=== PATIENT | female | born 1950 | race Caucasian/White ===

== ENCOUNTER 2016-03-15 12:16 | Emergency (ER) | payer MEDICARE ==
[2016-03-15] MEDS ORDERED: ASPIRIN 81 MG CHEW TABLET As Ordered ONE (12:43)
[2016-03-15 13:30] LABS: BASO # 0.1 K/mm3 (0.0-0.2); BASO % 1.3 % (0.0-1.0); EOS # 0.5 K/mm3 (0.0-0.50); EOS % 6.5 % (0.0-3.0); LARGE UNSTAINED CELL # 0.2 K/mm3 (0.0-0.4); LARGE UNSTAINED CELL % 2.2 % (0.0-4.0); MEAN CORPUSCULAR HEMOGLOBIN 27.8 pg (27.0-33.0); MEAN CORPUSCULAR HGB CONC 33.3 g/dl (32.0-36.5); MEAN CORPUSCULAR VOLUME 83.5 fl (80.0-96.0); MONO # 0.4 K/mm3 (0.0-0.8); PLATELET COUNT, AUTOMATED 152 k/mm3 (150-450); RED CELL DISTRIBUTION WIDTH 13.1 % (11.5-14.5)
[2016-03-15 13:58] LABS: ANION GAP 8 MEQ/L (8-16); BLOOD UREA NITROGEN 16 MG/DL (7-18); CALCIUM LEVEL 9.6 MG/DL (8.8-10.2); CARBON DIOXIDE LEVEL 26 MEQ/L (21-32); CHLORIDE LEVEL 109 MEQ/L (98-107); CREATININE FOR GFR 0.73 MG/DL (0.55-1.02); GLOMERULAR FILTRATION RATE > 60.0 (>45); GLUCOSE, FASTING 141 MG/DL (80-110); SODIUM LEVEL 143 MEQ/L (136-145)
[2016-03-15] MEDS ORDERED: fentaNYL 100 MCG/2 ML INJECTION (J3010) As Ordered ONE ×2 (14:09→15:44)
[2016-03-15] MEDS ORDERED: ISOVUE-370 76% 100ML VIAL (Q9967) As Ordered ONE (14:17)
--- NOTE | 2016-03-15 14:23 | REP ---
CHEST X-RAY: Two views. HISTORY: Chest pain. Comparison chest x-ray February 07, 2016. FINDINGS: EKG monitoring electrodes overlie the chest. There is mild linear fibrosis in the left base unchanged. Right hemidiaphragm is somewhat elevated also unchanged. Pleural angles are sharp. No infiltrate is seen. Heart is not felt to be enlarged. IMPRESSION: No active disease. Signed by Frantz Ruiz MD 03/15/2016 03:10 P
--- NOTE | 2016-03-15 15:38 | REP ---
CT pulmonary angiogram: With IV contrast. History: Chest pain. Comparison studies: Comparison chest x-ray is from this date. Contrast dose: 75 cc's of Isovue [address] technique: Helical scanning is acquired and overlapping 1.5 mm and contiguous 3 mm axial images are reformatted. In addition, a 3-D work station is deployed to generate thick slab maximum intensity projection images in sagittal and coronal imaging projections. CT pulmonary angiographic findings: There is good opacification of the pulmonary arterial tree and there is no CT evidence of pulmonary embolism. The thoracic aorta enhances homogeneously and is normal in course and caliber. No evidence of dissection or aneurysm. Vascular calcification is seen in the left coronary artery distribution. No pleural or pericardial effusion is seen. No adrenal lesion is observed. There are clips in the gallbladder fossa. No hilar or mediastinal mass or adenopathy is seen. No pulmonary nodule or mass lesion is observed. No infiltrate or significant atelectasis is noted. Maximum intensity projection images show no evidence of filling defect or vessel cutoff to suggest a pulmonary embolus. No bony destructive lesion is seen. Impression: No CT evidence of pulmonary embolism. No active cardiopulmonary disease seen. Vascular calcification in the distribution of the left coronary artery. Clips in the gallbladder fossa. Signed by Frantz Ruiz MD 03/15/2016 04:20 P
--- NOTE | 2016-03-15 19:53 | EDDOCDS ---
Nurse's Notes [facility] Name: Juju Danielle Age: 66 yrs Sex: Female : 1950 Arrival Date: 03/15/2016 Time: 12:16 Bed 11 Private MD: Diagnosis: Other chest pain-musculoskeletal Presentation: 03/15 12:20 Presenting complaint: EMS states: patient has had chest pain since yesterday - also has kcs had back pain for 2-3 weeks after shoveling. Has chest heaviness - gets worse with deep breath - moves to left side and to her back. Adult Sepsis Screening: The patient does not have new or worsening altered mentation. Patient's respiratory rate is less than 22. Systolic blood pressure is greater than 100. Patient has a qSOFA score of 0- Negative Sepsis Screen. Suicide/Homicide risk assessment- the patient denies having any suicidal and/or homicidal ideations and does not present with any other emotional, behavioral or mental health complaints. Status: Patient is not a resident service coordinator or dependent. Transition of care: Patient was received from [facility]. Care prior to arrival: See EMS report. Glucose check. 157 Oxygen administered by EMS. 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 Care prior to arrival: Medications administered prior to kcs arrival: ASA. 12:20 Acuity: SANTOS Level 2 kcs Triage Assessment: 15:35 Pt Declines HIV testing. Cardiovascular: Chest pain is described as Pain is 5 out of 10 rs3 on a pain scale. radiates to right scapula episodes are intermittent began a week. Historical: - Allergies: tequin; - Home Meds: 1. Insulin: Humalog 200 units/ml - 10 units three times daily Sub-Q 2. hydrocodone-acetaminophen 10-325 mg Oral tab 1 tab every 8 hours as needed 3. tizanidine 4 mg oral cap nightly 4. toujeo 300 units/ml - 145 units twice daily 5. metformin 1,000 mg oral tab 2 times per day 6. aspirin 81 mg Oral tab 1 tab once daily - PMHx: Carpal Tunnel Syndrome; Diabetes - IDDM: uncontrolled; Fibromyalgia; GERD; Hypertension; neuropathy; - PSHx: ; Cholecystectomy; Hysterectomy; - Family history: Not pertinent. - Social history: Smoking status: Patient states former smoker of tobacco. No barriers to communication noted, The patient speaks fluent [place] Zealander. - : The pt / caregiver states he / she is not on anticoagulants. Home medication list is obtained from a discharge med list. - Exposure Risk Screening:: None identified. Screenin:11 Screening information is obtained from the patient. Fall risk: No risks identified. ms18 Assistance ADL's: requires no assistance with activities of daily living. Abuse/DV Screen: The patient / caregiver reports he/she is: not in a situation that causes fear, pain or injury. Nutritional screening: No deficits noted. Advance Directives: There is no living will. home support is adequate. Assessment: 13:11 General: Appears in no apparent distress, obese, uncomfortable, Behavior is appropriate ms18 for age, cooperative, pleasant. Pain: Location: back and chest. Neurological: Level of Consciousness is awake, alert, obeys commands, Oriented to person, place, time. Cardiovascular: Rhythm is sinus rhythm. Respiratory: Airway is patent Respiratory effort is even, unlabored. Derm: Skin is pink, warm & dry. 14:25 General: Appears in no apparent distress, comfortable, Behavior is appropriate for age, ms18 cooperative, pleasant, Took pt to CT for PE study. PT in no acute distress. VSS. Pt able to move from stretcher to table with little assistance. Neurological: Level of Consciousness is awake, alert, obeys commands, Oriented to person, place, time. Respiratory: Airway is patent Respiratory effort is even, unlabored. Derm: Skin is pink, warm & dry. 15:06 General: Appears in no apparent distress, comfortable, Behavior is appropriate for age, ms18 cooperative, PT resting at this time. Will continue to monitor pt. Respiratory: Airway is patent Respiratory effort is even, unlabored. Derm: Skin is pink, warm & dry. 16:10 General: Appears in no apparent distress, patient used bedside commode. voided clear rs3 urine. R. upper scapular pain and chest pain remains \T\ 07/04. ordered Fentanyl 50 mcg IVP given. . 17:37 General: Appears in no apparent distress, Behavior is appropriate for age, cooperative, rs3 resting comfortable. sleeping. reports of pain decreased significantly /10. waiting on repeat card jsoe results. will continue to monitor. . 18:14 General: Appears in no apparent distress, Behavior is appropriate for age, cooperative, rs3 shoulder pain/chest pain improved. reports much better. had supper. tolerated well. visiting with family. will continue to monitor. . 19:51 Reassessment: Patient appears in no apparent distress at this time. Patient denies pain rs3 at this time. Patient states feeling better. Patient states symptoms have improved. Vital Signs: 12:30 Pulse 75; Resp 18; Temp 97.4(TE); Pulse Ox 98% on R/A; Weight 106.14 kg (R); Height 5 rn1 ft. 6 in. (167.64 cm) (R); Pain 10/10; 12:39 BP 162 / 84 LA Supine (man/lg); jlf 15:56 BP 188 / 78 (auto/); rs3 15:56 Pulse 66 MON; Pulse Ox 94% ; rs3 16:10 Pulse 68 MON; Pulse Ox 93% ; rs3 16:11 BP 187 / 77 (auto/); rs3 16:26 BP 180 / 74 (auto/); rs3 16:26 Pulse 76 MON; Pulse Ox 94% ; rs3 16:52 Temp 96.5(O); jlf 16:56 BP 199 / 79 (auto/); rs3 16:56 Pulse 68 MON; Pulse Ox 95% ; rs3 17:10 Pulse 68 MON; Pulse Ox 93% ; rs3 17:11 BP 178 / 73 (auto/); rs3 17:26 BP 195 / 77 (auto/); rs3 17:26 Pulse 66 MON; Pulse Ox 96% ; rs3 17:41 BP 190 / 80 (auto/); rs3 17:41 Pulse 66 MON; Pulse Ox 96% ; rs3 19:40 BP 178 / 80; Pulse 88 MON; Resp 18; Temp 98(TE); Pulse Ox 99% on R/A; Pain 2/10; rs3 12:30 Body Mass Index 37.77 (106.14 kg, 167.64 cm) rn1 ED Course: 12:17 Patient visited by Adriana Garcia, Ball Fringe Machine Operator. deg 12:17 Nicki Kilgore,JANELLE is Primary Nurse. deg 12:17 Patient moved to Waiting deg 12:17 Patient moved to 11 deg 12:22 Triage Initiated kcs 12:32 Patient visited by Saritha Renteria PCA. jlf 12:32 [facility]. le 12:32 Patient visited by Saritha Renteria PCA. jlf 12:32 EKG done. (by ED staff). Reviewed by Valorie SAINI. jlf 12:39 Patient visited by Valorie Figueroa FNP. le 12:40 Patient visited by Saritha Renteria PCA. jlf 12:41 Patient visited by Valorie Figueroa FNP. le 13:10 Patient visited by Angle Kilgore RN. ms18 13:10 ESR Sent. ms18 13:10 Basic Metabolic Profile Sent. ms18 13:10 CBC with Diff Sent. ms18 13:10 Cardiac Injury Profile Sent. ms18 13:10 D-Dimer Quant Sent. ms18 13:10 Troponin Sent. ms18 13:11 The patient / caregiver is instructed regarding the plan of care and ED course. Patient ms18 has correct armband on for positive identification. Placed in gown. Bed in low position. Call light in reach. Side rails up X2. threat monitoring analyst on. Pulse ox on. NIBP on. 13:11 Inserted saline lock: 20 gauge in left antecubital area and blood collected. The ms18 patient tolerated the procedure well. 13:33 C REACTIVE PROTEIN QUANTITATIV Sent. ms18 14:07 Patient visited by Angle Kilgore RN. ms18 14:17 Patient visited by Angle Kilgore RN. ms18 14:34 Chest, 2 View (pa\E\lat) Returned. EDMS 14:53 Patient visited by Saritha Renteria PCA. jlf 15:13 [facility] Payment Agreement was scanned into Embedded Chat and attached to record. jp5 15:27 Patient visited by Saritha Renteria PCA. jlf 15:43 Elmira Leiva,JANELLE is Primary Nurse. rs3 15:58 Patient visited by Elmira Leiva RN. rs3 16:17 Patient visited by Saritha Renteria PCA. jlf 16:20 CT Chest Angio R/O PE Returned. EDMS 16:52 Patient visited by Saritha Renteria PCA. jlf 16:52 Patient visited by Saritha Renteria PCA. jlf 17:33 Patient visited by Elmira Leiva,RN. rs3 18:14 Patient visited by Elmira Leiva RN. rs3 19:02 Patient visited by Elmira Leiva RN. rs3 19:22 Your own Physician is Referral Physician. le 19:51 Discontinued lock bleeding controlled, pressure dressing applied, No redness/swelling rs3 at site. No procedures done that require assistance. Administered Medications: 12:57 Not Given (pt had med by EMS): Aspirin Chewable Tablet 324 mg PO once ms18 14:17 Drug: fentaNYL (PF) 25 mcg [fentanyl (PF) 50 mcg/mL injection solution (0.5 mL)] Route: ms18 IVP; Site: left antecubital; 15:58 Drug: fentaNYL (PF) 50 mcg [fentanyl (PF) 50 mcg/mL injection solution (1 mL)] Route: rs3 IVP; Site: left antecubital; 16:30 Follow up: Response: Pain is decreased rs3 Order Results: Lab Order: Basic Metabolic Profile; SPEC'M 03/15/16 13:09 Test: GLUCOSE, FASTING; Value: 141; Range: 80-110; Abnormal: Above high normal; Units: MG/DL; Status: F Test: BLOOD UREA NITROGEN; Value: 16; Range: 7-18; Units: MG/DL; Status: F Test: CREATININE FOR GFR; Value: 0.73; Range: 0.55-1.02; Units: MG/DL; Status: F Test: GLOMERULAR FILTRATION RATE; Value: > 60.0; Range: >45; Status: F Test: SODIUM LEVEL; Value: 143; Range: 136-145; Units: MEQ/L; Status: F Test: POTASSIUM SERUM; Value: 4.0; Range: 3.5-5.1; Units: MEQ/L; Status: F Test: CHLORIDE LEVEL; Value: 109; Range: 98-107; Abnormal: Above high normal; Units: MEQ/L; Status: F Test: CARBON DIOXIDE LEVEL; Value: 26; Range: 21-32; Units: MEQ/L; Status: F Test: ANION GAP; Value: 8; Range: 8-16; Units: MEQ/L; Status: F Test: CALCIUM LEVEL; Value: 9.6; Range: 8.8-10.2; Units: MG/DL; Status: F Test Note: ; Units are mL/min/1.73 m2 Chronic Kidney Disease Staging per NKF: Stage I & II GFR >=60 Normal to Mildly Decreased Stage III GFR 30-59 Moderately Decreased Stage IV GFR 15-29 Severely Decreased Stage V GFR <15 Very Little GFR Left ESRD GFR <15 on BIOMEDICAL EQUIPMENT TECHNICIAN Lab Order: CBC with Diff; YASMEEN 03/15/16 13:09 Test: WHITE BLOOD COUNT; Value: 7.0; Range: 4.0-10.0; Units: K/mm3; Status: F Test: RED BLOOD COUNT; Value: 4.99; Range: 4.00-5.40; Units: M/mm3; Status: F Test: HEMOGLOBIN; Value: 13.9; Range: 12.0-16.0; Units: g/dl; Status: F Test: HEMATOCRIT; Value: 41.7; Range: 36.0-47.0; Units: %; Status: F Test: MEAN CORPUSCULAR VOLUME; Value: 83.5; Range: 80.0-96.0; Units: fl; Status: F Test: MEAN CORPUSCULAR HEMOGLOBIN; Value: 27.8; Range: 27.0-33.0; Units: pg; Status: F Test: MEAN CORPUSCULAR HGB CONC; Value: 33.3; Range: 32.0-36.5; Units: g/dl; Status: F Test: RED CELL DISTRIBUTION WIDTH; Value: 13.1; Range: 11.5-14.5; Units: %; Status: F Test: PLATELET COUNT, AUTOMATED; Value: 152; Range: 150-450; Units: k/mm3; Status: F Test: NEUTROPHILS %; Value: 43.0; Range: 36.0-66.0; Units: %; Status: F Test: LYMPH %; Value: 42.0; Range: 24.0-44.0; Units: %; Status: F Test: MONO %; Value: 5.0; Range: 0.0-5.0; Units: %; Status: F Test: EOS %; Value: 6.5; Range: 0.0-3.0; Abnormal: Above high normal; Units: %; Status: F Test: BASO %; Value: 1.3; Range: 0.0-1.0; Abnormal: Above high normal; Units: %; Status: F Test: LARGE UNSTAINED CELL %; Value: 2.2; Range: 0.0-4.0; Units: %; Status: F Test: NEUTROPHILS #; Value: 3.0; Range: 1.8-7.7; Units: K/mm3; Status: F Test: LYMPH #; Value: 3.0; Range: 1.5-4.5; Units: K/mm3; Status: F Test: MONO #; Value: 0.4; Range: 0.0-0.8; Units: K/mm3; Status: F Test: EOS #; Value: 0.5; Range: 0.0-0.50; Units: K/mm3; Status: F Test: BASO #; Value: 0.1; Range: 0.0-0.2; Units: K/mm3; Status: F Test: LARGE UNSTAINED CELL #; Value: 0.2; Range: 0.0-0.4; Units: K/mm3; Status: F Lab Order: Cardiac Injury Profile; SPEC' 03/15/16 13:09 Test: CPK CREATINE PHOSPHOKINASE; Value: 73; Range: 26-192; Units: U/L; Status: F Test: CK-MB VALUE MASS; Value: 2.4; Range: 0.0-3.6; Units: NG/ML; Status: F Test: MB/CK RELATIVE INDEX; Value: 3.28; Range: < OR =4; Status: F Test Note: ; DIAGNOSIS CRITERIA MMB ng/ml Relative Index (RI) NON-AMI < or = 5 N/A [place]ONE > 5 < or = 4 AMI > 5 > 4 Lab Order: D-Dimer Quant; [facility]' 03/15/16 13:09 Test: D-DIMER QUANT; Value: 902.0; Range: <500; Abnormal: Above high normal; Units: ng/ml; Status: F Lab Order: Troponin; [facility]' 03/15/16 13:09 Test: TROPONIN I; Value: 0.37; Range: < 0.10; Abnormal: Above high normal; Units: NG/ML; Status: F Test Note: ; Troponin I Reference Interval for [place] LOCI: 99th Percentile= 0.00-0.045 ng/ml Risk Stratification: <= 0.10 ng/ml Decreased Risk for Adverse Clinical Events. 0.10-1.50 ng/ml Increased Risk for Adverse Clinical Events. Evaluation of additional criterion and/or repeat testing in 2-6 hours is suggested to rule out myocardial damage. >= 1.50 ng/ml Indicative of Myocardial Injury. Lab Order: ESR; SPEC' 03/15/16 12:49 Test: ERYTHROCYTE SEDIMENTATION RATE; Value: 42; Range: 0-30; Abnormal: Above high normal; Units: mm/hr; Status: F Lab Order: C REACTIVE PROTEIN QUANTITATIV; SPEC' 03/15/16 13:09 Test: C REACTIVE PROTEIN QUANTITATIV; Value: 1.00; Range: 0.00-0.30; Abnormal: Above high normal; Units: MG/DL; Status: F Lab Order: CARDIAC MARKER PANEL; [facility]' 03/15/16 16:38 Test: CPK CREATINE PHOSPHOKINASE; Value: 70; Range: 26-192; Units: U/L; Status: F Test: CK-MB VALUE MASS; Value: 2.3; Range: 0.0-3.6; Units: NG/ML; Status: F Test: MB/CK RELATIVE INDEX; Value: 3.28; Range: < OR =4; Status: F Test: TROPONIN I; Value: 0.33; Range: < 0.10; Abnormal: Above high normal; Units: NG/ML; Status: F Test Note: ; DIAGNOSIS CRITERIA MMB ng/ml Relative Index (RI) NON-AMI < or = 5 N/A [place]ONE > 5 < or = 4 AMI > 5 > 4 Radiology Order: Chest, 2 View (pa\E\lat) Test: Chest, 2 View (pa\E\lat) REASON FOR EXAMINATION: Chest Pain; CHEST X-RAY:; ; Two views.; ; HISTORY: Chest pain.; ; Comparison chest x-ray February 07, 2016.; ; FINDINGS: EKG monitoring electrodes overlie the chest. There is mild linear; fibrosis in the left base unchanged. Right hemidiaphragm is somewhat elevated; also unchanged. Pleural angles are sharp. No infiltrate is seen. Heart is not; felt to be enlarged.; ; IMPRESSION: No active disease.; ; ; Signed by; Frantz Ruiz MD 03/15/2016 03:10 P; Radiology Order: CT Chest Angio R/O PE Test: CT Chest Angio R/O PE REASON FOR EXAMINATION: Chest Pain; CT pulmonary angiogram: With IV contrast.; ; History: Chest pain.; ; Comparison studies: Comparison chest x-ray is from this date.; ; Contrast dose: 75 cc's of Isovue 370 are administered intravenously.; ; CT technique: Helical scanning is acquired and overlapping 1.5 mm and contiguous; 3 mm axial images are reformatted. In addition, a 3-D work station is deployed; to generate thick slab maximum intensity projection images in sagittal and; coronal imaging projections.; ; CT pulmonary angiographic findings: There is good opacification of the pulmonary; arterial tree and there is no CT evidence of pulmonary embolism. The thoracic; aorta enhances homogeneously and is normal in course and caliber. No evidence of; dissection or aneurysm. Vascular calcification is seen in the left coronary; artery distribution. No pleural or pericardial effusion is seen. No adrenal; lesion is observed. There are clips in the gallbladder fossa. No hilar or; mediastinal mass or adenopathy is seen. No pulmonary nodule or mass lesion is; observed. No infiltrate or significant atelectasis is noted. Maximum intensity; projection images show no evidence of filling defect or vessel cutoff to suggest; a pulmonary embolus. No bony destructive lesion is seen.; ; Impression:; ; No CT evidence of pulmonary embolism. No active cardiopulmonary disease seen.; Vascular calcification in the distribution of the left coronary artery. Clips in; the gallbladder fossa.; ; ; Signed by; Frantz Ruiz MD 03/15/2016 04:20 P; Outcome: 19:23 Discharge ordered by Provider. katelin 19:50 Discharge Assessment: patient administered narcotics - no. The following High Risk rs3 Discharge criteria are identified: None. Discharged to home with family. Condition: stable. Discharge instructions given to patient, Instructed on discharge instructions, follow up and referral plans. medication usage, Demonstrated understanding of instructions, medications, Pt was receptive of discharge instructions/ teaching. No special radiology studies were completed. Property :Personal belongings accompany Pt. 19:52 Patient left the ED. rs3 Signatures: Dispatcher [employer] EDGila Domínguez RN RN kcs Murray, Denise, Ball Fringe Machine Operator Unit deg Valorie Figueroa FNP FNP le Soosairaj, Rosemary, RN RN rs3 Saritha Renteria, TREATING PLANT SUPERVISOR TREATING PLANT SUPERVISOR jlf Angle Kilgore,JANELLE RN ms18 Stan Ingram rn1 Doroteo Carver jp5 Corrections: (The following items were deleted from the chart) 13:19 13:10 C REACTIVE PROTEIN QUANTITATIV+LAB sent. ms18 EDMS MTDD
--- NOTE | 2016-03-15 19:53 | EDDOCDS ---
Physician Documentation [facility] Name: Juju Danielle Age: 66 yrs Sex: Female : 1950 Arrival Date: 03/15/2016 Time: 12:16 Bed 11 Private MD: Disposition: 03/15 19:24 Critical Care: Critical care not applicable. le Disposition: 03/15/16 19:23 Discharged to Home/Self Care. Impression: Other chest pain - musculoskeletal. - Condition is Stable. - Discharge Instructions: Nonspecific Chest Pain, Musculoskeletal Pain. - Medication Reconciliation, Local Pharmacy Hours form. - Follow up: Your own Physician; When: Call to arrange an appointment; Reason: Recheck today's complaints, Continuance of care. - Problem is new. - Symptoms have improved. - Notes: Return to the ED for any further concerns Historical: - Allergies: tequin; - Home Meds: 1. Insulin: Humalog 200 units/ml - 10 units three times daily Sub-Q 2. hydrocodone-acetaminophen 10-325 mg Oral tab 1 tab every 8 hours as needed 3. tizanidine 4 mg oral cap nightly 4. toujeo 300 units/ml - 145 units twice daily 5. metformin 1,000 mg oral tab 2 times per day 6. aspirin 81 mg Oral tab 1 tab once daily - PMHx: Carpal Tunnel Syndrome; Diabetes - IDDM: uncontrolled; Fibromyalgia; GERD; Hypertension; neuropathy; - PSHx: ; Cholecystectomy; Hysterectomy; - Family history: Not pertinent. - Social history: Smoking status: Patient states former smoker of tobacco. No barriers to communication noted, The patient speaks fluent French. - : The pt / caregiver states he / she is not on anticoagulants. Home medication list is obtained from a discharge med list. - Exposure Risk Screening:: None identified. Vital Signs: 12:30 Pulse 75; Resp 18; Temp 97.4(TE); Pulse Ox 98% on R/A; Weight 106.14 kg / 234 lbs (R); rn1 Height 5 ft. 6 in. (167.64 cm) (R); Pain 10/10; 12:39 BP 162 / 84 LA Supine (man/lg); jlf 15:56 BP 188 / 78 (auto/); rs3 15:56 Pulse 66 MON; Pulse Ox 94% ; rs3 16:10 Pulse 68 MON; Pulse Ox 93% ; rs3 16:11 BP 187 / 77 (auto/); rs3 16:26 BP 180 / 74 (auto/); rs3 16:26 Pulse 76 MON; Pulse Ox 94% ; rs3 16:52 Temp 96.5(O); jlf 16:56 BP 199 / 79 (auto/); rs3 16:56 Pulse 68 MON; Pulse Ox 95% ; rs3 17:10 Pulse 68 MON; Pulse Ox 93% ; rs3 17:11 BP 178 / 73 (auto/); rs3 17:26 BP 195 / 77 (auto/); rs3 17:26 Pulse 66 MON; Pulse Ox 96% ; rs3 17:41 BP 190 / 80 (auto/); rs3 17:41 Pulse 66 MON; Pulse Ox 96% ; rs3 19:40 BP 178 / 80; Pulse 88 MON; Resp 18; Temp 98(TE); Pulse Ox 99% on R/A; Pain 2/10; rs3 12:30 Body Mass Index 37.77 (106.14 kg, 167.64 cm) rn1 MDM: 12:20 ECG WITH READING ER PHYS+CARDIAG ordered. EDMS 12:41 Aspirin Chewable Tablet 324 mg PO once ordered. le 12:41 Label Sewer/Pulse Ox/q 30 min VS ordered. le 12:41 IV Saline Lock ordered. le 12:41 Rhythm Strip to chart ordered. le 12:41 Undress patient appropriately for examination ordered. le 12:42 Basic Metabolic Profile Ordered. EDMS 12:42 CBC with Diff Ordered. EDMS 12:42 Cardiac Injury Profile Ordered. EDMS 12:42 D-Dimer Quant Ordered. EDMS 12:42 Troponin Ordered. EDMS 12:42 Chest, 2 View (pa\E\lat) Ordered. EDMS 12:55 ESR Ordered. EDMS 13:21 C REACTIVE PROTEIN QUANTITATIV Ordered. EDMS 13:54 CBC with Diff Reviewed. le 13:54 D-Dimer Quant Reviewed. le 13:54 ESR Reviewed. le 13:56 CT Chest Angio R/O PE Ordered. EDMS 13:56 fentaNYL (PF) 25 mcg IVP once ordered. le 15:13 [facility] Payment Agreement was scanned into [email or web address] and attached to record. jp5 15:13 Financial registration complete. jp5 15:33 Basic Metabolic Profile Reviewed. le 15:33 Troponin Reviewed. le 15:33 C REACTIVE PROTEIN QUANTITATIV Reviewed. le 15:33 Cardiac Injury Profile Reviewed. le 15:33 Chest, 2 View (pa\E\lat) Reviewed. le 15:37 Repeat EKG (put time details section) ordered. le 15:37 Redraw CIP &Troponin (put time in details section) ordered. le 15:37 fentaNYL (PF) 50 mcg IVP once ordered. le 15:40 CARDIAC MARKER PANEL Ordered. EDMS 15:41 Redraw CIP &Troponin (put time in details section) complete. deg 15:41 Repeat EKG (put time details section) complete. deg 15:41 ECG WITH READING ER PHYS ordered. EDMS 15:42 CONSISTENT CARBOHYDRATE+DIET ordered. EDMS 19:15 CARDIAC MARKER PANEL Reviewed. le Administered Medications: 12:57 Not Given (pt had med by EMS): Aspirin Chewable Tablet 324 mg PO once ms18 14:17 Drug: fentaNYL (PF) 25 mcg [fentanyl (PF) 50 mcg/mL injection solution (0.5 mL)] Route: ms18 IVP; Site: left antecubital; 15:58 Drug: fentaNYL (PF) 50 mcg [fentanyl (PF) 50 mcg/mL injection solution (1 mL)] Route: rs3 IVP; Site: left antecubital; 16:30 Follow up: Response: Pain is decreased rs3 Signatures: Dispatcher [employer] EDMS Gila Davis RN RN kcs Murray, Denise, Screening Tech Unit deg Valorie Figueroa, ATTIC FANS MECHANIC ATTIC FANS MECHANIC Elmira Swann RN RN rs3 Angle Kilgore RN RN ms18 Doroteo Carver jp5 The chart was reviewed and I authenticate all verbal orders and agree with the evaluation and treatment provided.Corrections: (The following items were deleted from the chart) 13:19 12:55 C REACTIVE PROTEIN QUANTITATIV+LAB ordered. EDMS EDMS Attachments: 15:13 [facility] Payment Agreement jp5 MTDD
--- NOTE | 2016-03-15 21:18 | ECGEPIP ---
Stationary ECG Study [facility] - ED Test Date: 2016-03-15 Pat Name: MARIANA SMITH Department: Room: - Gender: F Engineering Document Control Clerk: konstantin : 1950 Requested By: Antonina Hazel Order Number: [id number] Reading MD: Shaq Tenorio Measurements Intervals [place] Rate: 66 P: 46 GA: 151 QRS: -28 QRSD: 94 T: 128 QT: 395 QTc: 417 Interpretive Statements SINUS RHYTHM LEFT AXIS DEVIATION NSTTW ABNORMALITIES SIMILAR TO 03/31/15 Electronically Signed On 03-15-2016 21:18:22 EST by Sahq Tenorio
--- NOTE | 2016-03-15 21:23 | ECGEPIP ---
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
--- NOTE | 2016-03-17 20:52 | EDDOCDS ---
Physician Documentation [facility] Name: Juju Danielle Age: 66 yrs Sex: Female : 1950 Arrival Date: 03/15/2016 Time: 12:16 Bed 11 Private MD: Disposition: 03/15 19:24 Critical Care: Critical care not applicable. le Disposition: 03/15/16 19:23 Discharged to Home/Self Care. Impression: Other chest pain - musculoskeletal. - Condition is Stable. - Discharge Instructions: Nonspecific Chest Pain, Musculoskeletal Pain. - Medication Reconciliation, Local Pharmacy Hours form. - Follow up: Your own Physician; When: Call to arrange an appointment; Reason: Recheck today's complaints, Continuance of care. - Problem is new. - Symptoms have improved. - Notes: Return to the ED for any further concerns Historical: - Allergies: tequin; - Home Meds: 1. Insulin: Humalog 200 units/ml - 10 units three times daily Sub-Q 2. hydrocodone-acetaminophen 10-325 mg Oral tab 1 tab every 8 hours as needed 3. tizanidine 4 mg oral cap nightly 4. toujeo 300 units/ml - 145 units twice daily 5. metformin 1,000 mg oral tab 2 times per day 6. aspirin 81 mg Oral tab 1 tab once daily - PMHx: Carpal Tunnel Syndrome; Diabetes - IDDM: uncontrolled; Fibromyalgia; GERD; Hypertension; neuropathy; - PSHx: ; Cholecystectomy; Hysterectomy; - Family history: Not pertinent. - Social history: Smoking status: Patient states former smoker of tobacco. No barriers to communication noted, The patient speaks fluent Belarusian. - : The pt / caregiver states he / she is not on anticoagulants. Home medication list is obtained from a discharge med list. - Exposure Risk Screening:: None identified. Vital Signs: 12:30 Pulse 75; Resp 18; Temp 97.4(TE); Pulse Ox 98% on R/A; Weight 106.14 kg / 234 lbs (R); rn1 Height 5 ft. 6 in. (167.64 cm) (R); Pain 10/10; 12:39 BP 162 / 84 LA Supine (man/lg); jlf 15:56 BP 188 / 78 (auto/); rs3 15:56 Pulse 66 MON; Pulse Ox 94% ; rs3 16:10 Pulse 68 MON; Pulse Ox 93% ; rs3 16:11 BP 187 / 77 (auto/); rs3 16:26 BP 180 / 74 (auto/); rs3 16:26 Pulse 76 MON; Pulse Ox 94% ; rs3 16:52 Temp 96.5(O); jlf 16:56 BP 199 / 79 (auto/); rs3 16:56 Pulse 68 MON; Pulse Ox 95% ; rs3 17:10 Pulse 68 MON; Pulse Ox 93% ; rs3 17:11 BP 178 / 73 (auto/); rs3 17:26 BP 195 / 77 (auto/); rs3 17:26 Pulse 66 MON; Pulse Ox 96% ; rs3 17:41 BP 190 / 80 (auto/); rs3 17:41 Pulse 66 MON; Pulse Ox 96% ; rs3 19:40 BP 178 / 80; Pulse 88 MON; Resp 18; Temp 98(TE); Pulse Ox 99% on R/A; Pain 2/10; rs3 12:30 Body Mass Index 37.77 (106.14 kg, 167.64 cm) rn1 MDM: 12:20 ECG WITH READING ER PHYS+CARDIAG ordered. EDMS 12:41 Aspirin Chewable Tablet 324 mg PO once ordered. 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 le 12:41 IV Saline Lock ordered. le 12:41 Rhythm Strip to chart ordered. le 12:41 Undress patient appropriately for examination ordered. le 12:42 Basic Metabolic Profile Ordered. EDMS 12:42 CBC with Diff Ordered. EDMS 12:42 Cardiac Injury Profile Ordered. EDMS 12:42 D-Dimer Quant Ordered. EDMS 12:42 Troponin Ordered. EDMS 12:42 Chest, 2 View (pa\E\lat) Ordered. EDMS 12:55 ESR Ordered. EDMS 13:21 C REACTIVE PROTEIN QUANTITATIV Ordered. EDMS 13:54 CBC with Diff Reviewed. le 13:54 D-Dimer Quant Reviewed. le 13:54 ESR Reviewed. le 13:56 CT Chest Angio R/O PE Ordered. EDMS 13:56 fentaNYL (PF) 25 mcg IVP once ordered. le 15:13 [facility] [place] Agreement was scanned into [email or web address] and attached to record. jp5 15:13 Financial registration complete. jp5 15:33 Basic Metabolic Profile Reviewed. le 15:33 Troponin Reviewed. le 15:33 C REACTIVE PROTEIN QUANTITATIV Reviewed. le 15:33 Cardiac Injury Profile Reviewed. le 15:33 Chest, 2 View (pa\E\lat) Reviewed. le 15:37 Repeat EKG (put time details section) ordered. le 15:37 Redraw CIP &Troponin (put time in details section) ordered. le 15:37 fentaNYL (PF) 50 mcg IVP once ordered. le 15:40 CARDIAC MARKER PANEL Ordered. EDMS 15:41 Redraw CIP &Troponin (put time in details section) complete. deg 15:41 Repeat EKG (put time details section) complete. deg 15:41 ECG WITH READING ER PHYS ordered. EDMS 15:42 CONSISTENT CARBOHYDRATE+DIET ordered. EDMS 19:15 CARDIAC MARKER PANEL Reviewed. le 03/16 09:47 T-Sheet-- Draft Copy was scanned into [email or web address] and attached to record. gb 09:48 ECG/EKG was scanned into [email or web address] and attached to record. gb 09:48 Rhythm Strip was scanned into [email or web address] and attached to record. gb 09:48 PCR was scanned into [email or web address] and attached to record. gb Administered Medications: 03/15 12:57 Not Given (pt had med by EMS): Aspirin Chewable Tablet 324 mg PO once ms18 14:17 Drug: fentaNYL (PF) 25 mcg [fentanyl (PF) 50 mcg/mL injection solution (0.5 mL)] Route: ms18 IVP; Site: left antecubital; 15:58 Drug: fentaNYL (PF) 50 mcg [fentanyl (PF) 50 mcg/mL injection solution (1 mL)] Route: rs3 IVP; Site: left antecubital; 16:30 Follow up: Response: Pain is decreased rs3 Signatures: Dispatcher [employer] EDMS Gila Davis, JANELLE RN Adriana Duarte, Postal Mail Carrier Unit deg Valeri Damon, Reg Reg gb Valorie Figueroa, RELATIONSHIP CONSULTANT RELATIONSHIP CONSULTANT Elmira Swann RN RN rs3 Angle Kilgore RN RN ms18 Doroteo Carver jp5 The chart was reviewed and I authenticate all verbal orders and agree with the evaluation and treatment provided.Corrections: (The following items were deleted from the chart) 13:19 12:55 C REACTIVE PROTEIN QUANTITATIV+LAB ordered. EDMS EDMS Attachments: 15:13 [facility] [place] Agreement jp5 03/16 09:47 T-Sheet-- Draft Copy gb 09:48 ECG/EKG gb Chart Complete MTDD
--- NOTE | 2016-03-17 20:52 | EDDOCDS ---
Physician Documentation [facility] Name: Juju Danielle Age: 66 yrs Sex: Female : 1950 Arrival Date: 03/15/2016 Time: 12:16 Bed 11 Private MD: Disposition: 03/15 19:24 Critical Care: Critical care not applicable. le Disposition: 03/15/16 19:23 Discharged to Home/Self Care. Impression: Other chest pain - musculoskeletal. - Condition is Stable. - Discharge Instructions: Nonspecific Chest Pain, Musculoskeletal Pain. - Medication Reconciliation, Local Pharmacy Hours form. - Follow up: Your own Physician; When: Call to arrange an appointment; Reason: Recheck today's complaints, Continuance of care. - Problem is new. - Symptoms have improved. - Notes: Return to the ED for any further concerns Historical: - Allergies: tequin; - Home Meds: 1. Insulin: Humalog 200 units/ml - 10 units three times daily Sub-Q 2. hydrocodone-acetaminophen 10-325 mg Oral tab 1 tab every 8 hours as needed 3. tizanidine 4 mg oral cap nightly 4. toujeo 300 units/ml - 145 units twice daily 5. metformin 1,000 mg oral tab 2 times per day 6. aspirin 81 mg Oral tab 1 tab once daily - PMHx: Carpal Tunnel Syndrome; Diabetes - IDDM: uncontrolled; Fibromyalgia; GERD; Hypertension; neuropathy; - PSHx: ; Cholecystectomy; Hysterectomy; - Family history: Not pertinent. - Social history: Smoking status: Patient states former smoker of tobacco. No barriers to communication noted, The patient speaks fluent Thai. - : The pt / caregiver states he / she is not on anticoagulants. Home medication list is obtained from a discharge med list. - Exposure Risk Screening:: None identified. Vital Signs: 12:30 Pulse 75; Resp 18; Temp 97.4(TE); Pulse Ox 98% on R/A; Weight 106.14 kg / 234 lbs (R); rn1 Height 5 ft. 6 in. (167.64 cm) (R); Pain 10/10; 12:39 BP 162 / 84 LA Supine (man/lg); jlf 15:56 BP 188 / 78 (auto/); rs3 15:56 Pulse 66 MON; Pulse Ox 94% ; rs3 16:10 Pulse 68 MON; Pulse Ox 93% ; rs3 16:11 BP 187 / 77 (auto/); rs3 16:26 BP 180 / 74 (auto/); rs3 16:26 Pulse 76 MON; Pulse Ox 94% ; rs3 16:52 Temp 96.5(O); jlf 16:56 BP 199 / 79 (auto/); rs3 16:56 Pulse 68 MON; Pulse Ox 95% ; rs3 17:10 Pulse 68 MON; Pulse Ox 93% ; rs3 17:11 BP 178 / 73 (auto/); rs3 17:26 BP 195 / 77 (auto/); rs3 17:26 Pulse 66 MON; Pulse Ox 96% ; rs3 17:41 BP 190 / 80 (auto/); rs3 17:41 Pulse 66 MON; Pulse Ox 96% ; rs3 19:40 BP 178 / 80; Pulse 88 MON; Resp 18; Temp 98(TE); Pulse Ox 99% on R/A; Pain 2/10; rs3 12:30 Body Mass Index 37.77 (106.14 kg, 167.64 cm) rn1 MDM: 12:20 ECG WITH READING ER PHYS+CARDIAG ordered. EDMS 12:41 Aspirin Chewable Tablet 324 mg PO once ordered. 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 le 12:41 IV Saline Lock ordered. le 12:41 Rhythm Strip to chart ordered. le 12:41 Undress patient appropriately for examination ordered. le 12:42 Basic Metabolic Profile Ordered. EDMS 12:42 CBC with Diff Ordered. EDMS 12:42 Cardiac Injury Profile Ordered. EDMS 12:42 D-Dimer Quant Ordered. EDMS 12:42 Troponin Ordered. EDMS 12:42 Chest, 2 View (pa\E\lat) Ordered. EDMS 12:55 ESR Ordered. EDMS 13:21 C REACTIVE PROTEIN QUANTITATIV Ordered. EDMS 13:54 CBC with Diff Reviewed. le 13:54 D-Dimer Quant Reviewed. le 13:54 ESR Reviewed. le 13:56 CT Chest Angio R/O PE Ordered. EDMS 13:56 fentaNYL (PF) 25 mcg IVP once ordered. le 15:13 [facility] Payment Agreement was scanned into [employer] and attached to record. jp5 15:13 Financial registration complete. jp5 15:33 Basic Metabolic Profile Reviewed. le 15:33 Troponin Reviewed. le 15:33 C REACTIVE PROTEIN QUANTITATIV Reviewed. le 15:33 Cardiac Injury Profile Reviewed. le 15:33 Chest, 2 View (pa\E\lat) Reviewed. le 15:37 Repeat EKG (put time details section) ordered. le 15:37 Redraw CIP &Troponin (put time in details section) ordered. le 15:37 fentaNYL (PF) 50 mcg IVP once ordered. le 15:40 CARDIAC MARKER PANEL Ordered. EDMS 15:41 Redraw CIP &Troponin (put time in details section) complete. deg 15:41 Repeat EKG (put time details section) complete. deg 15:41 ECG WITH READING ER PHYS ordered. EDMS 15:42 CONSISTENT CARBOHYDRATE+DIET ordered. EDMS 19:15 CARDIAC MARKER PANEL Reviewed. le 03/16 09:47 T-Sheet-- Draft Copy was scanned into [employer] and attached to record. gb 09:48 ECG/EKG was scanned into [employer] and attached to record. gb 09:48 Rhythm Strip was scanned into [employer] and attached to record. gb 09:48 PCR was scanned into [employer] and attached to record. gb Administered Medications: 03/15 12:57 Not Given (pt had med by EMS): Aspirin Chewable Tablet 324 mg PO once ms18 14:17 Drug: fentaNYL (PF) 25 mcg [fentanyl (PF) 50 mcg/mL injection solution (0.5 mL)] Route: ms18 IVP; Site: left antecubital; 15:58 Drug: fentaNYL (PF) 50 mcg [fentanyl (PF) 50 mcg/mL injection solution (1 mL)] Route: rs3 IVP; Site: left antecubital; 16:30 Follow up: Response: Pain is decreased rs3 Signatures: Dispatcher [employer] EDMS Gila Davis, JANELLE RN Adriana Duarte, Gamemaster Unit deg Valeri Damon, Reg Reg gb Valorie Figueroa, CALL OR CONTACT CENTRE OPERATOR CALL OR CONTACT CENTRE OPERATOR Elmira Swann RN RN rs3 Angle Kilgore RN RN ms18 Doroteo Carver jp5 The chart was reviewed and I authenticate all verbal orders and agree with the evaluation and treatment provided.Corrections: (The following items were deleted from the chart) 13:19 12:55 C REACTIVE PROTEIN QUANTITATIV+LAB ordered. EDMS EDMS Attachments: 15:13 [facility] Payment Agreement jp5 03/16 09:47 T-Sheet-- Draft Copy gb 09:48 ECG/EKG gb Chart Complete MTDD
--- NOTE | 2016-03-17 20:53 | EDDOCDS ---
Nurse's Notes [facility] Name: Mariana Danielle Age: 66 yrs Sex: Female : 1950 Arrival Date: 03/15/2016 Time: 12:16 Bed 11 Private MD: Diagnosis: Other chest pain-musculoskeletal Presentation: 03/15 12:20 Presenting complaint: EMS states: patient has had chest pain since yesterday - also has kcs had back pain for 2-3 weeks after shoveling. Has chest heaviness - gets worse with deep breath - moves to left side and to her back. Adult Sepsis Screening: The patient does not have new or worsening altered mentation. Patient's respiratory rate is less than 22. Systolic blood pressure is greater than 100. Patient has a qSOFA score of 0- Negative Sepsis Screen. Suicide/Homicide risk assessment- the patient denies having any suicidal and/or homicidal ideations and does not present with any other emotional, behavioral or mental health complaints. Status: Patient is not a customer service assistant or dependent. Transition of care: Patient was received from [facility]. Care prior to arrival: See EMS report. Glucose check. 157 Oxygen administered by EMS. 12:20 Method Of Arrival: Ambulance kcs 12:20 Aspirin was taken RN CLINICIAN. Care prior to arrival: Medications administered prior to kcs arrival: ASA. 12:20 Acuity: SANTOS Level 2 kcs Triage Assessment: 15:35 Pt Declines HIV testing. Cardiovascular: Chest pain is described as Pain is 5 out of 10 rs3 on a pain scale. radiates to right scapula episodes are intermittent began a week. Historical: - Allergies: tequin; - Home Meds: 1. Insulin: Humalog 200 units/ml - 10 units three times daily Sub-Q 2. hydrocodone-acetaminophen 10-325 mg Oral tab 1 tab every 8 hours as needed 3. tizanidine 4 mg oral cap nightly 4. toujeo 300 units/ml - 145 units twice daily 5. metformin 1,000 mg oral tab 2 times per day 6. aspirin 81 mg Oral tab 1 tab once daily - PMHx: Carpal Tunnel Syndrome; Diabetes - IDDM: uncontrolled; Fibromyalgia; GERD; Hypertension; neuropathy; - PSHx: ; Cholecystectomy; Hysterectomy; - Family history: Not pertinent. - Social history: Smoking status: Patient states former smoker of tobacco. No barriers to communication noted, The patient speaks fluent Taiwanese. - : The pt / caregiver states he / she is not on anticoagulants. Home medication list is obtained from a discharge med list. - Exposure Risk Screening:: None identified. Screenin:11 Screening information is obtained from the patient. Fall risk: No risks identified. ms18 Assistance ADL's: requires no assistance with activities of daily living. Abuse/DV Screen: The patient / caregiver reports he/she is: not in a situation that causes fear, pain or injury. Nutritional screening: No deficits noted. Advance Directives: There is no living will. home support is adequate. Assessment: 13:11 General: Appears in no apparent distress, obese, uncomfortable, Behavior is appropriate ms18 for age, cooperative, pleasant. Pain: Location: back and chest. Neurological: Level of Consciousness is awake, alert, obeys commands, Oriented to person, place, time. Cardiovascular: Rhythm is sinus rhythm. Respiratory: Airway is patent Respiratory effort is even, unlabored. Derm: Skin is pink, warm & dry. 14:25 General: Appears in no apparent distress, comfortable, Behavior is appropriate for age, ms18 cooperative, pleasant, Took pt to CT for PE study. PT in no acute distress. VSS. Pt able to move from stretcher to table with little assistance. Neurological: Level of Consciousness is awake, alert, obeys commands, Oriented to person, place, time. Respiratory: Airway is patent Respiratory effort is even, unlabored. Derm: Skin is pink, warm & dry. 15:06 General: Appears in no apparent distress, comfortable, Behavior is appropriate for age, ms18 cooperative, PT resting at this time. Will continue to monitor pt. Respiratory: Airway is patent Respiratory effort is even, unlabored. Derm: Skin is pink, warm & dry. 16:10 General: Appears in no apparent distress, patient used bedside commode. voided clear rs3 urine. R. upper scapular pain and chest pain remains \T\ 07/04. ordered Fentanyl 50 mcg IVP given. . 17:37 General: Appears in no apparent distress, Behavior is appropriate for age, cooperative, rs3 resting comfortable. sleeping. reports of pain decreased significantly /10. waiting on repeat card jose results. will continue to monitor. . 18:14 General: Appears in no apparent distress, Behavior is appropriate for age, cooperative, rs3 shoulder pain/chest pain improved. reports much better. had supper. tolerated well. visiting with family. will continue to monitor. . 19:51 Reassessment: Patient appears in no apparent distress at this time. Patient denies pain rs3 at this time. Patient states feeling better. Patient states symptoms have improved. Vital Signs: 12:30 Pulse 75; Resp 18; Temp 97.4(TE); Pulse Ox 98% on R/A; Weight 106.14 kg (R); Height 5 rn1 ft. 6 in. (167.64 cm) (R); Pain 10/10; 12:39 BP 162 / 84 LA Supine (man/lg); jlf 15:56 BP 188 / 78 (auto/); rs3 15:56 Pulse 66 MON; Pulse Ox 94% ; rs3 16:10 Pulse 68 MON; Pulse Ox 93% ; rs3 16:11 BP 187 / 77 (auto/); rs3 16:26 BP 180 / 74 (auto/); rs3 16:26 Pulse 76 MON; Pulse Ox 94% ; rs3 16:52 Temp 96.5(O); jlf 16:56 BP 199 / 79 (auto/); rs3 16:56 Pulse 68 MON; Pulse Ox 95% ; rs3 17:10 Pulse 68 MON; Pulse Ox 93% ; rs3 17:11 BP 178 / 73 (auto/); rs3 17:26 BP 195 / 77 (auto/); rs3 17:26 Pulse 66 MON; Pulse Ox 96% ; rs3 17:41 BP 190 / 80 (auto/); rs3 17:41 Pulse 66 MON; Pulse Ox 96% ; rs3 19:40 BP 178 / 80; Pulse 88 MON; Resp 18; Temp 98(TE); Pulse Ox 99% on R/A; Pain 2/10; rs3 12:30 Body Mass Index 37.77 (106.14 kg, 167.64 cm) rn1 ED Course: 12:17 Patient visited by Adriana Garcia, Statistical Consultant. deg 12:17 Nicki Kilgore,JANELLE is Primary Nurse. deg 12:17 Patient moved to Waiting deg 12:17 Patient moved to 11 deg 12:22 Triage Initiated kcs 12:32 Patient visited by Saritha Renteria PCA. jlf 12:32 [facility] le 12:32 Patient visited by Saritha Renteria PCA. jlf 12:32 EKG done. (by ED staff). Reviewed by Valorie SAINI. jlf 12:39 Patient visited by Valorie Figueroa FNP. le 12:40 Patient visited by Saritha Renteria PCA. jlf 12:41 Patient visited by Valorie Figueroa FNP. le 13:10 Patient visited by Angle Kilgore RN. ms18 13:10 ESR Sent. ms18 13:10 Basic Metabolic Profile Sent. ms18 13:10 CBC with Diff Sent. ms18 13:10 Cardiac Injury Profile Sent. ms18 13:10 D-Dimer Quant Sent. ms18 13:10 Troponin Sent. ms18 13:11 The patient / caregiver is instructed regarding the plan of care and ED course. Patient ms18 has correct armband on for positive identification. Placed in gown. Bed in low position. Call light in reach. Side rails up X2. senior administrative assistant on. Pulse ox on. NIBP on. 13:11 Inserted saline lock: 20 gauge in left antecubital area and blood collected. The ms18 patient tolerated the procedure well. 13:33 C REACTIVE PROTEIN QUANTITATIV Sent. ms18 14:07 Patient visited by Angle Kilgore RN. ms18 14:17 Patient visited by Angle Kilgore RN. ms18 14:34 Chest, 2 View (pa\E\lat) Returned. EDMS 14:53 Patient visited by Saritha Renteria PCA. jlf 15:13 [facility] Payment Agreement was scanned into [employer] and attached to record. jp5 15:27 Patient visited by Saritha Renteria PCA. jlf 15:43 Elmira Leiva,JANELLE is Primary Nurse. rs3 15:58 Patient visited by Elmira Leiva RN. rs3 16:17 Patient visited by Saritha Renteria PCA. jlf 16:20 CT Chest Angio R/O PE Returned. EDMS 16:52 Patient visited by Saritha Renteria PCA. jlf 16:52 Patient visited by Saritha Renteria PCA. jlf 17:33 Patient visited by Elmira Leiva,RN. rs3 18:14 Patient visited by Elmira Leiva RN. rs3 19:02 Patient visited by Elmira Leiva RN. rs3 19:22 Your own Physician is Referral Physician. le 19:51 Discontinued lock bleeding controlled, pressure dressing applied, No redness/swelling rs3 at site. No procedures done that require assistance. 21:58 EKG-ADULT Returned. EDMS 21:58 ECG WITH READING ER PHYS Returned. EDMS 03/16 09:47 T-Sheet-- Draft Copy was scanned into [employer] and attached to record. gb 09:48 ECG/EKG was scanned into [employer] and attached to record. gb 09:48 Rhythm Strip was scanned into [employer] and attached to record. gb 09:48 PCR was scanned into [employer] and attached to record. gb Administered Medications: 03/15 12:57 Not Given (pt had med by EMS): Aspirin Chewable Tablet 324 mg PO once ms18 14:17 Drug: fentaNYL (PF) 25 mcg [fentanyl (PF) 50 mcg/mL injection solution (0.5 mL)] Route: ms18 IVP; Site: left antecubital; 15:58 Drug: fentaNYL (PF) 50 mcg [fentanyl (PF) 50 mcg/mL injection solution (1 mL)] Route: rs3 IVP; Site: left antecubital; 16:30 Follow up: Response: Pain is decreased rs3 Attachments: 09:48 Rhythm Strip gb Order Results: Lab Order: Basic Metabolic Profile; SPEC'M 03/15/16 13:09 Test: GLUCOSE, FASTING; Value: 141; Range: 80-110; Abnormal: Above high normal; Units: MG/DL; Status: F Test: BLOOD UREA NITROGEN; Value: 16; Range: 7-18; Units: MG/DL; Status: F Test: CREATININE FOR GFR; Value: 0.73; Range: 0.55-1.02; Units: MG/DL; Status: F Test: GLOMERULAR FILTRATION RATE; Value: > 60.0; Range: >45; Status: F Test: SODIUM LEVEL; Value: 143; Range: 136-145; Units: MEQ/L; Status: F Test: POTASSIUM SERUM; Value: 4.0; Range: 3.5-5.1; Units: MEQ/L; Status: F Test: CHLORIDE LEVEL; Value: 109; Range: 98-107; Abnormal: Above high normal; Units: MEQ/L; Status: F Test: CARBON DIOXIDE LEVEL; Value: 26; Range: 21-32; Units: MEQ/L; Status: F Test: ANION GAP; Value: 8; Range: 8-16; Units: MEQ/L; Status: F Test: CALCIUM LEVEL; Value: 9.6; Range: 8.8-10.2; Units: MG/DL; Status: F Test Note: ; Units are mL/min/1.73 m2 Chronic Kidney Disease Staging per NKF: Stage I & II GFR >=60 Normal to Mildly Decreased Stage III GFR 30-59 Moderately Decreased Stage IV GFR 15-29 Severely Decreased Stage V GFR <15 Very Little GFR Left ESRD GFR <15 on [facility] Lab Order: CBC with Diff; SPEC'M 03/15/16 13:09 Test: WHITE BLOOD COUNT; Value: 7.0; Range: 4.0-10.0; Units: K/mm3; Status: F Test: RED BLOOD COUNT; Value: 4.99; Range: 4.00-5.40; Units: M/mm3; Status: F Test: HEMOGLOBIN; Value: 13.9; Range: 12.0-16.0; Units: g/dl; Status: F Test: HEMATOCRIT; Value: 41.7; Range: 36.0-47.0; Units: %; Status: F Test: MEAN CORPUSCULAR VOLUME; Value: 83.5; Range: 80.0-96.0; Units: fl; Status: F Test: MEAN CORPUSCULAR HEMOGLOBIN; Value: 27.8; Range: 27.0-33.0; Units: pg; Status: F Test: MEAN CORPUSCULAR HGB CONC; Value: 33.3; Range: 32.0-36.5; Units: g/dl; Status: F Test: RED CELL DISTRIBUTION WIDTH; Value: 13.1; Range: 11.5-14.5; Units: %; Status: F Test: PLATELET COUNT, AUTOMATED; Value: 152; Range: 150-450; Units: k/mm3; Status: F Test: NEUTROPHILS %; Value: 43.0; Range: 36.0-66.0; Units: %; Status: F Test: LYMPH %; Value: 42.0; Range: 24.0-44.0; Units: %; Status: F Test: MONO %; Value: 5.0; Range: 0.0-5.0; Units: %; Status: F Test: EOS %; Value: 6.5; Range: 0.0-3.0; Abnormal: Above high normal; Units: %; Status: F Test: BASO %; Value: 1.3; Range: 0.0-1.0; Abnormal: Above high normal; Units: %; Status: F Test: LARGE UNSTAINED CELL %; Value: 2.2; Range: 0.0-4.0; Units: %; Status: F Test: NEUTROPHILS #; Value: 3.0; Range: 1.8-7.7; Units: K/mm3; Status: F Test: LYMPH #; Value: 3.0; Range: 1.5-4.5; Units: K/mm3; Status: F Test: MONO #; Value: 0.4; Range: 0.0-0.8; Units: K/mm3; Status: F Test: EOS #; Value: 0.5; Range: 0.0-0.50; Units: K/mm3; Status: F Test: BASO #; Value: 0.1; Range: 0.0-0.2; Units: K/mm3; Status: F Test: LARGE UNSTAINED CELL #; Value: 0.2; Range: 0.0-0.4; Units: K/mm3; Status: F Lab Order: Cardiac Injury Profile; SPEC'03/15/16 13:09 Test: CPK CREATINE PHOSPHOKINASE; Value: 73; Range: 26-192; Units: U/L; Status: F Test: CK-MB VALUE MASS; Value: 2.4; Range: 0.0-3.6; Units: NG/ML; Status: F Test: MB/CK RELATIVE INDEX; Value: 3.28; Range: < OR =4; Status: F Test Note: ; DIAGNOSIS CRITERIA MMB ng/ml Relative Index (RI) NON-AMI < or = 5 N/A [place]ONE > 5 < or = 4 AMI > 5 > 4 Lab Order: D-Dimer Quant; SPEC'M 03/15/16 13:09 Test: D-DIMER QUANT; Value: 902.0; Range: <500; Abnormal: Above high normal; Units: ng/ml; Status: F Lab Order: Troponin; [facility] 03/15/16 13:09 Test: TROPONIN I; Value: 0.37; Range: < 0.10; Abnormal: Above high normal; Units: NG/ML; Status: F Test Note: ; Troponin I Reference Interval for [facility] Verivue LOCI: 99th Percentile= 0.00-0.045 ng/ml Risk Stratification: <= 0.10 ng/ml Decreased Risk for Adverse Clinical Events. 0.10-1.50 ng/ml Increased Risk for Adverse Clinical Events. Evaluation of additional criterion and/or repeat testing in 2-6 hours is suggested to rule out myocardial damage. >= 1.50 ng/ml Indicative of Myocardial Injury. Lab Order: ESR; [facility] 03/15/16 12:49 Test: ERYTHROCYTE SEDIMENTATION RATE; Value: 42; Range: 0-30; Abnormal: Above high normal; Units: mm/hr; Status: F Lab Order: C REACTIVE PROTEIN QUANTITATIV; [facility] 03/15/16 13:09 Test: C REACTIVE PROTEIN QUANTITATIV; Value: 1.00; Range: 0.00-0.30; Abnormal: Above high normal; Units: MG/DL; Status: F Lab Order: CARDIAC MARKER PANEL; [facility] 03/15/16 16:38 Test: CPK CREATINE PHOSPHOKINASE; Value: 70; Range: 26-192; Units: U/L; Status: F Test: CK-MB VALUE MASS; Value: 2.3; Range: 0.0-3.6; Units: NG/ML; Status: F Test: MB/CK RELATIVE INDEX; Value: 3.28; Range: < OR =4; Status: F Test: TROPONIN I; Value: 0.33; Range: < 0.10; Abnormal: Above high normal; Units: NG/ML; Status: F Test Note: ; DIAGNOSIS CRITERIA MMB ng/ml Relative Index (RI) NON-AMI < or = 5 N/A [place] ZONE > 5 < or = 4 AMI > 5 > 4 Radiology Order: EKG-ADULT Test: EKG-ADULT REASON FOR EXAMINATION: Chest Pain; Stationary ECG Study; [facility] - ED; ; Test Date: 2016-03-15; Pat Name: MARIANA DANIELLE Department:; Room: -; Gender: F Journeyman Level Acoustic Analyst: konstantin; : 1950 Requested By: Antonina Hazel; Order Number: [id number] Reading MD: Shaq Tenorio; Measurements; Intervals [place]; Rate: 66 P: 46; CA: 151 QRS: -28; QRSD: 94 T: 128; QT: 395; QTc: 417; Interpretive Statements; SINUS RHYTHM; LEFT AXIS DEVIATION; NSTTW ABNORMALITIES; SIMILAR TO 03/31/15; ; Electronically Signed On 03-15-2016 21:18:22 EST by Shaq Tenorio; Radiology Order: Chest, 2 View (pa\E\lat) Test: Chest, 2 View (pa\E\lat) REASON FOR EXAMINATION: Chest Pain; CHEST X-RAY:; ; Two views.; ; HISTORY: Chest pain.; ; Comparison chest x-ray February 07, 2016.; ; FINDINGS: EKG monitoring electrodes overlie the chest. There is mild linear; fibrosis in the left base unchanged. Right hemidiaphragm is somewhat elevated; also unchanged. Pleural angles are sharp. No infiltrate is seen. Heart is not; felt to be enlarged.; ; IMPRESSION: No active disease.; ; ; Signed by; Frantz Ruiz MD 03/15/2016 03:10 P; Radiology Order: CT Chest Angio R/O PE Test: CT Chest Angio R/O PE REASON FOR EXAMINATION: Chest Pain; CT pulmonary angiogram: With IV contrast.; ; History: Chest pain.; ; Comparison studies: Comparison chest x-ray is from this date.; ; Contrast dose: 75 cc's of Isovue 370 are administered intravenously.; ; CT technique: Helical scanning is acquired and overlapping 1.5 mm and contiguous; 3 mm axial images are reformatted. In addition, a 3-D work station is deployed; to generate thick slab maximum intensity projection images in sagittal and; coronal imaging projections.; ; CT pulmonary angiographic findings: There is good opacification of the pulmonary; arterial tree and there is no CT evidence of pulmonary embolism. The thoracic; aorta enhances homogeneously and is normal in course and caliber. No evidence of; dissection or aneurysm. Vascular calcification is seen in the left coronary; artery distribution. No pleural or pericardial effusion is seen. No adrenal; lesion is observed. There are clips in the gallbladder fossa. No hilar or; mediastinal mass or adenopathy is seen. No pulmonary nodule or mass lesion is; observed. No infiltrate or significant atelectasis is noted. Maximum intensity; projection images show no evidence of filling defect or vessel cutoff to suggest; a pulmonary embolus. No bony destructive lesion is seen.; ; Impression:; ; No CT evidence of pulmonary embolism. No active cardiopulmonary disease seen.; Vascular calcification in the distribution of the left coronary artery. Clips in; the gallbladder fossa.; ; ; Signed by; Frantz Ruiz MD 03/15/2016 04:20 P; Radiology Order: ECG WITH READING ER PHYS Test: ECG WITH READING ER PHYS REASON FOR EXAMINATION: CHEST PAIN; Stationary ECG Study; [facility] - ED; ; Test Date: 2016-03-15; Pat Name: MARIANA DANIELLE Department:; Room: -; Gender: F Journeyman Level Acoustic Analyst: konstantin; : 1950 Requested By: VALORIE SAINI; Order Number: [id number] Reading MD: Shaq Tenorio; Measurements; Intervals [place]; Rate: 77 P: 61; CA: 145 QRS: -30; QRSD: 102 T: 116; QT: 413; QTc: 468; Interpretive Statements; SINUS RHYTHM; BORDERLINE LEFT AXIS DEVIATION; NSTTW ABNORMALITIES; ; Electronically Signed On 03-15-2016 21:23:16 EST by Shaq Tenorio; Outcome: 03/15 19:23 Discharge ordered by Provider. le 19:50 Discharge Assessment: patient administered narcotics - no. The following High Risk rs3 Discharge criteria are identified: None. Discharged to home with family. Condition: stable. Discharge instructions given to patient, Instructed on discharge instructions, follow up and referral plans. medication usage, Demonstrated understanding of instructions, medications, Pt was receptive of discharge instructions/ teaching. No special radiology studies were completed. Property :Personal belongings accompany Pt. 19:52 Patient left the ED. rs3 Signatures: Dispatcher [employer] EDGila Domínguez RN RN Adriana Duarte, Statistical Consultant Unit deg Vaelri Damon, Reg Reg Valorie Reynolds, FOUNDER AND CHIEF EXECUTIVE OFFICER FOUNDER AND CHIEF EXECUTIVE OFFICER Elmira SwannRN RN rs3 Saritha Renteria, FEED MILL SUPERVISOR FEED MILL SUPERVISOR jlf Angle Kilgore RN RN ms18 Stan Ingram rn1 Doroteo Carver jp5 Corrections: (The following items were deleted from the chart) 13:19 13:10 C REACTIVE PROTEIN QUANTITATIV+LAB sent. ms18 EDMS Chart Complete MTDD
== END 2016-03-15 19:52 | disposition home or self-care (01) ==
LOC: M ED 12:16
DX: R07.89 Other chest pain (principal); I10 Essential (primary) hypertension; E11.9 Type 2 diabetes mellitus without complications; K21.9 Gastro-esophageal reflux disease without esophagitis; M79.7 Fibromyalgia; G62.9 Polyneuropathy, unspecified; G56.00 Carpal tunnel syndrome, unspecified upper limb; Z79.899 Other long term (current) drug therapy; Z79.84 Long term (current) use of oral hypoglycemic drugs; Z79.4 Long term (current) use of insulin; Z79.82 Long term (current) use of aspirin; Z88.2 Allergy status to sulfonamides; Z87.891 Personal history of nicotine dependence
CPT/HCPCS: 36415; 71020; 71275; 80048; 82550; 82553; 84484; 85025; 85379; 85652; 86140; 93005; 93041; 96374; 96376; 99284; J3010; Q9967

== ENCOUNTER → 2016-03-28 | Outpatient (CLI) | payer MEDICARE ==
--- NOTE | 2016-03-28 14:23 | REP ---
MRI THORACIC SPINE WITHOUT CONTRAST: 03/28/2016 COMPARISON: 03/07/2012 CLINICAL HISTORY: Mid-back pain. TECHNIQUE: A marker was placed and confirmed at T2 with sagittal T1-T2 sequences. Because of the severe pain, the patient was unable to complete the examination and no axial images were obtained. FINDINGS: The sagittal images show normal gentle thoracic kyphosis maintained. There is some discogenic endplate changes at T4-5 and disc space narrowing from T3-4 through T6-7. There is a small central disc protrusion at T5-6. Another at T7-8 and another at T8-9 towards the right. Small disc bulging at T11-12 also seen. All of this is grossly unchanged compared to the previous study vertebral hemangioma noted at the T5 level as a benign finding. The cord shows no intrinsic signal abnormality, syrinx, atrophy or mass. Conus terminates at T12. IMPRESSION: 1. Degenerative disc disease as described without compression deformity or destructive lesion. 2. Multilevel disc protrusions at T5-6, T7-8 and T8-9. All of this is unchanged. Absence of axial images limits the examination. No new finding visible. Signed by Jake Duarte MD 03/28/2016 04:45 P
== END ==
LOC: M RAD 09:38
PROVIDERS: ATTEND Physician Assistant Medical
DX: M51.34 Other intervertebral disc degeneration, thoracic region (principal); M51.24 Other intervertebral disc displacement, thoracic region; M54.15 Radiculopathy, thoracolumbar region

== ENCOUNTER → 2016-04-02 | Outpatient (CLI) | payer MEDICARE ==
--- NOTE | 2016-04-02 11:45 | REP ---
MRI LUMBAR SPINE WITHOUT CONTRAST: HISTORY: Back pain. COMPARISON: 03/20/2013. Decreased signal intensity on T2-weighted images is present in the L2-3 through L5-S1 intervertebral discs. The discs are decreased in height. These findings are consistent with disc degeneration. There is no disc bulge or herniation at the L1-2 and L2-3 levels. There is hypertrophy of the posterior articulating facets. The nerves exit the neural foramina without compression. A diffuse disc bulge is present at the L3-4 level. There is hypertrophy of the ligamenta flava and posterior articulating facets. These findings produce minimal central canal stenosis. The L3 nerves exit the neural foramina without compression. A diffuse disc bulge is present at the L4-5 level. There is hypertrophy of the ligamenta flava and posterior articulating facets. There are 4 mm of grade 1 spondylolisthesis of L4 on 5. These findings produce minimal central canal stenosis. The L4 nerves exit the neural foramina without compression. Fluid is present in the L4-5 facet joints. A diffuse disc bulge is present at the L5-S1 level. This abuts the thecal sac. There is hypertrophy of the posterior articulating facets. The L5 nerves exit the neural foramina without compression. The conus medullaris is normal in appearance terminating at the level of the T12 vertebral body. Increased signal intensity on T2-weighted images is present in the end plates of the L5 and S1 vertebral bodies. This represents degenerative change. IMPRESSION: 1. Minimal central canal stenosis at the L3-4 level secondary to disc bulge, ligamentous and facet hypertrophy. 2. Minimal central canal stenosis at the L4-5 level secondary to disc bulge, ligamentous and facet hypertrophy and grade 1 spondylolisthesis. 3. Diffuse disc bulge at the L5-S1 level. This abuts the thecal sac. There is no significant change compared to the previous study. Signed by Shola Rice MD 04/02/2016 11:56 A
--- NOTE | 2016-04-02 12:02 | REP ---
MR THORACIC SPINE WITHOUT CONTRAST: HISTORY: Back pain. COMPARISON: 03/29/2016. A small central disc protrusion is present at the T1-2 level. There is minimal effacement of the thecal sac without spinal cord compression. The T1 neural foramina are patent. A small central disc protrusion is present at the T2-3 level. There is minimal effacement of the thecal sac without spinal cord compression. The T2 neural foramina are patent. A small left paracentral disc protrusion is present at the T3-4 level. There is minimal effacement of the thecal sac without spinal cord compression. The T3 neural foramina are patent. A small left paracentral disc protrusion is present at the T4-5 level. There is minimal effacement of the thecal sac without spinal cord compression. The T4 neural foramina are patent. A disc bulge is present at the T5-6 level. There is minimal effacement of the thecal sac without spinal cord compression. There T5 neural foramina are patent. A small left paracentral disc protrusion is present at the T6-7 level. There is minimal effacement of the thecal sac without spinal cord compression. The T6 neural foramina are patent. A disc bulge is present at the T7-8 level. There is minimal effacement of the thecal sac without spinal cord compression. The T7 neural foramina are patent. A small right paracentral disc protrusion is present at the T8-9 level. There is minimal effacement of the thecal sac without spinal cord compression. The T8 neural foramina are patent. A small right paracentral disc protrusion is present at the T9-10 level. There is minimal effacement of the thecal sac without spinal cord compression. The T9 neural foramina are patent. There is no other disc bulge or herniation. The remaining neural foramina are patent. The spinal cord is normal in signal intensity. There is no intradural extramedullary lesion. A hemangioma is present in the T5 vertebral body. Increased signal intensity on T2-weighted images is present in the endplates of severely mid and lower thoracic vertebral bodies. This represents degenerative change. IMPRESSION: 1. Small disc protrusions at the T1-2 through T4-5, T6-7, T8-9 and T9-10 levels without spinal cord compression. 2. Disc bulges at the T5-6 and T7-8 levels without spinal cord compression. There is no significant change compared to the previous study. Signed by Shola Rice MD 04/02/2016 12:08 P
== END ==
LOC: M RAD 09:29
PROVIDERS: ATTEND Physician Assistant Medical
DX: M48.07 Spinal stenosis, lumbosacral region (principal); M51.26 Other intervertebral disc displacement, lumbar region; M43.16 Spondylolisthesis, lumbar region; M51.24 Other intervertebral disc displacement, thoracic region

== ENCOUNTER → 2016-07-03 | Outpatient (CLI) | payer MEDICARE ==
[2016-07-03 16:21] LABS: ALBUMIN 3.2 GM/DL (3.2-5.2); ALBUMIN/GLOBULIN RATIO 0.86 (1.00-1.93); ALKALINE PHOSPHATASE 75 U/L (45-117); ALT/SGPT 29 U/L (12-78); ANION GAP 10 MEQ/L (8-16); AST/SGOT 33 U/L (15-37); BILIRUBIN,TOTAL 0.7 MG/DL (0.2-1.0); BLOOD UREA NITROGEN 14 MG/DL (7-18); CALCIUM LEVEL 8.8 MG/DL (8.8-10.2); CARBON DIOXIDE LEVEL 25 MEQ/L (21-32); CHLORIDE LEVEL 107 MEQ/L (98-107); CHOLESTEROL LEVEL 201 MG/DL (<200); CREATININE FOR GFR 0.63 MG/DL (0.55-1.02); GLOMERULAR FILTRATION RATE > 60.0 (>45); GLUCOSE, FASTING 134 MG/DL (80-110); POTASSIUM SERUM 3.6 MEQ/L (3.5-5.1); SODIUM LEVEL 142 MEQ/L (136-145); TOTAL PROTEIN 6.9 GM/DL (6.4-8.2); TRIGLYCERIDES LEVEL 234 MG/DL (<150)
[2016-07-03 16:27] LABS: BASO # 0.1 K/mm3 (0.0-0.2); BASO % 1.3 % (0.0-1.0); EOS # 0.6 K/mm3 (0.0-0.50); EOS % 7.2 % (0.0-3.0); LYMPH # 3.7 K/mm3 (1.5-4.5); LYMPH % 40.7 % (24.0-44.0); MEAN CORPUSCULAR HEMOGLOBIN 28.2 pg (27.0-33.0); MEAN CORPUSCULAR VOLUME 82.9 fl (80.0-96.0); MONO # 0.6 K/mm3 (0.0-0.8); MONO % 6.6 % (0.0-5.0); NEUTROPHILS # 3.5 K/mm3 (1.8-7.7); NEUTROPHILS % 41.4 % (36.0-66.0); RED CELL DISTRIBUTION WIDTH 14.4 % (11.5-14.5); WHITE BLOOD COUNT 8.4 K/mm3 (4.0-10.0)
== END ==
LOC: M WUC 08:57
PROVIDERS: ATTEND Physician Assistant Medical
DX: E11.9 Type 2 diabetes mellitus without complications (principal); D64.9 Anemia, unspecified

== ENCOUNTER → 2016-08-06 | Outpatient (CLI) | payer MEDICARE ==
--- NOTE | 2016-08-06 15:28 | REP ---
CT of the chest without IV contrast: Comparisons are 01/01/2013 and 2016. There are focal zones of stable parenchymal scarring medially in the right upper lobe and medially in the lingular segment of the left upper lobe, unchanged from both prior studies. There are no masses or nodules. There are no acute infiltrates or effusions. There is no mediastinal or axillary adenopathy. The study is insensitive for hilar adenopathy in the absence of IV contrast. The thoracic aorta is unremarkable. Cardiac size is normal. There is calcified vascular atheroma in the coronary arteries. The visualized upper abdominal contents again demonstrate surgical clips in the gallbladder fossa but are otherwise unremarkable. Impression: There are no masses or nodules. There are no infiltrates or effusions. There are focal zones of chronic stable parenchymal scarring in the right upper lobe and lingular segment of the left upper lobe. Signed by Tan Vilchis MD 08/06/2016 03:20 P
== END ==
LOC: M RAD 14:24
PROVIDERS: ATTEND Physician Assistant Medical
DX: R06.02 Shortness of breath (principal)

== ENCOUNTER → 2016-08-29 | Outpatient (CLI) | payer MEDICARE ==
[~2016-08-29] MED LIST: ASPI1TAB PO; ATOR1TAB21 PO; B121000T PO; CITA20TA4 PO; GEMF600T PO; HUMA100I5 SUBQ; HYDR-3719 PO; LEVO25TA5 PO; METF10004 PO; TIZA4CAP3 PO; TOUJ1.2I SC; VALS160T PO
[2016-08-29 13:42] LABS: FOLATE 14.5 NG/ML; VITAMIN B12 LEVEL 750 PG/ML
[2016-08-29 14:34] LABS: ALBUMIN 3.5 GM/DL (3.2-5.2); ALBUMIN/GLOBULIN RATIO 0.83 (1.00-1.93); ALKALINE PHOSPHATASE 150 U/L (45-117); ALT/SGPT 52 U/L (12-78); ANION GAP 11 MEQ/L (8-16); AST/SGOT 47 U/L (15-37); BILIRUBIN,TOTAL 0.8 MG/DL (0.2-1.0); BLOOD UREA NITROGEN 19 MG/DL (7-18); CALCIUM LEVEL 9.3 MG/DL (8.8-10.2); CARBON DIOXIDE LEVEL 23 MEQ/L (21-32); CHLORIDE LEVEL 105 MEQ/L (98-107); CHOLESTEROL LEVEL 230 MG/DL (<200); CREATININE FOR GFR 0.81 MG/DL (0.55-1.02); FERRITIN 55 NG/ML (8-252); GLOMERULAR FILTRATION RATE > 60.0 (>45); GLUCOSE, FASTING 262 MG/DL (80-110); SODIUM LEVEL 139 MEQ/L (136-145); TOTAL PROTEIN 7.7 GM/DL (6.4-8.2); TRIGLYCERIDES LEVEL 309 MG/DL (<150)
[2016-08-30 10:33] LABS: ALBUMIN % 51.9 % (55.8-66.1); GAMMA GLOBULIN % 18.8 % (11.1-18.8)
== END ==
LOC: M WUC 08:13
PROVIDERS: ATTEND Physician Assistant Medical
DX: R53.83 Other fatigue (principal); E11.9 Type 2 diabetes mellitus without complications

== ENCOUNTER → 2016-08-30 | Outpatient (CLI) | payer MEDICARE ==
[2016-08-30 12:42] LABS: BASO # 0.1 K/mm3 (0.0-0.2); EOS # 0.4 K/mm3 (0.0-0.50); EOS % 4.3 % (0.0-3.0); LYMPH # 3.8 K/mm3 (1.5-4.5); LYMPH % 37.8 % (24.0-44.0); MEAN CORPUSCULAR HEMOGLOBIN 29.5 pg (27.0-33.0); MEAN CORPUSCULAR HGB CONC 34.2 g/dl (32.0-36.5); MEAN CORPUSCULAR VOLUME 86.2 fl (80.0-96.0); MONO # 0.5 K/mm3 (0.0-0.8); NEUTROPHILS # 4.9 K/mm3 (1.8-7.7); NEUTROPHILS % 50.3 % (36.0-66.0); RED CELL DISTRIBUTION WIDTH 14.1 % (11.5-14.5); WHITE BLOOD COUNT 9.8 K/mm3 (4.0-10.0)
== END ==
LOC: M WUC 09:14
PROVIDERS: ATTEND Physician Assistant Medical
DX: R53.83 Other fatigue (principal); E11.9 Type 2 diabetes mellitus without complications

== ENCOUNTER → 2016-09-21 | Outpatient (CLI) | payer MEDICARE ==
--- NOTE | 2016-09-21 10:16 | REP ---
ABDOMINAL ULTRASOUND: Real-time sonographic evaluation of the abdomen performed. Study is limited due to extensive bowel gas. Patient has had a prior cholecystectomy. There is mild dilatation of the common bile duct as expected in a patient of this age status post cholecystectomy with a maximum diameter of 9 mm. Liver demonstrates coarsened heterogeneous echotexture compatible with diffuse fibrofatty infiltration. No gross mass is seen. Visualized pancreas is grossly unremarkable with the tail not well visualized due to overlying bowel gas. Spleen is mildly enlarged measuring 16.4 cm in length. There is no definite intrinsic abnormality. There appears to be a small splenule 1.6 x 1.5 x 1.7 cm. Kidneys are normal in size and echotexture with vascular calcifications noted. Right kidney measures 12.8 x 7.6 x 5.2 cm and left kidney 13.9 x 6.7 x 4.6 cm. There is no hydronephrosis or renal mass identified. Visualized abdominal aorta is normal in caliber meauring 1.8 to 1.9 cm in the proximal and mid aspect. Distal aspect is not seen due to overlying bowel gas. No ascites is seen. IMPRESSION: Limited exam due to bowel gas. Patient is status post cholecystectomy. Common bile duct 9 mm as expected in a patient of this age status post cholecystectomy. Diffuse fibrofatty infiltration of the liver. Splenomegaly. No ascites. Signed by Tan Jaramillo MD 09/21/2016 03:27 P
== END ==
LOC: M RAD 08:29
PROVIDERS: ATTEND Physician Assistant Medical
DX: R16.1 Splenomegaly, not elsewhere classified (principal); K76.0 Fatty (change of) liver, not elsewhere classified; Z90.49 Acquired absence of other specified parts of digestive tract

== ENCOUNTER → 2016-10-15 | Outpatient (CLI) | payer MEDICARE ==
[2016-10-15 14:19] LABS: ALBUMIN 3.5 GM/DL (3.2-5.2); ALBUMIN/GLOBULIN RATIO 0.88 (1.00-1.93); ALKALINE PHOSPHATASE 147 U/L (45-117); ALT/SGPT 46 U/L (12-78); ANION GAP 9 MEQ/L (8-16); AST/SGOT 60 U/L (15-37); BILIRUBIN,TOTAL 0.5 MG/DL (0.2-1.0); BLOOD UREA NITROGEN 24 MG/DL (7-18); CALCIUM LEVEL 8.6 MG/DL (8.8-10.2); CARBON DIOXIDE LEVEL 25 MEQ/L (21-32); CHLORIDE LEVEL 105 MEQ/L (98-107); CHOLESTEROL LEVEL 227 MG/DL (<200); CREATININE FOR GFR 1.25 MG/DL (0.55-1.02); GLOMERULAR FILTRATION RATE 45.9 (>45); GLUCOSE, FASTING 219 MG/DL (80-110); POTASSIUM SERUM 4.6 MEQ/L (3.5-5.1); SODIUM LEVEL 139 MEQ/L (136-145); TOTAL PROTEIN 7.5 GM/DL (6.4-8.2); TRIGLYCERIDES LEVEL 562 MG/DL (<150)
== END ==
LOC: M WUC 09:04
PROVIDERS: ATTEND Physician Assistant Medical
DX: E11.9 Type 2 diabetes mellitus without complications (principal)

== ENCOUNTER → 2016-11-13 | Outpatient (CLI) | payer MEDICARE ==
[2016-11-13 17:53] LABS: ALBUMIN 3.4 GM/DL (3.2-5.2); ALBUMIN/GLOBULIN RATIO 0.94 (1.00-1.93); ALKALINE PHOSPHATASE 67 U/L (45-117); ALT/SGPT 20 U/L (12-78); ANION GAP 9 MEQ/L (8-16); AST/SGOT 27 U/L (15-37); BILIRUBIN,TOTAL 0.5 MG/DL (0.2-1.0); BLOOD UREA NITROGEN 20 MG/DL (7-18); CALCIUM LEVEL 8.9 MG/DL (8.8-10.2); CARBON DIOXIDE LEVEL 26 MEQ/L (21-32); CHLORIDE LEVEL 106 MEQ/L (98-107); CHOLESTEROL LEVEL 126 MG/DL (<200); CREATININE FOR GFR 0.84 MG/DL (0.55-1.02); GLOMERULAR FILTRATION RATE > 60.0 (>45); GLUCOSE, FASTING 71 MG/DL (80-110); POTASSIUM SERUM 4.2 MEQ/L (3.5-5.1); SODIUM LEVEL 141 MEQ/L (136-145); TRIGLYCERIDES LEVEL 89 MG/DL (<150)
== END ==
LOC: M WUC 11:23
PROVIDERS: ATTEND Physician Assistant Medical
DX: E11.9 Type 2 diabetes mellitus without complications (principal)

== ENCOUNTER → 2016-12-12 | Outpatient (CLI) | payer MEDICARE ==
[2016-12-12 10:18] LABS: ALBUMIN 3.3 GM/DL (3.2-5.2); ALBUMIN/GLOBULIN RATIO 0.97 (1.00-1.93); ALKALINE PHOSPHATASE 90 U/L (45-117); ALT/SGPT 32 U/L (12-78); ANION GAP 9 MEQ/L (8-16); AST/SGOT 39 U/L (15-37); BILIRUBIN,TOTAL 0.5 MG/DL (0.2-1.0); BLOOD UREA NITROGEN 16 MG/DL (7-18); CALCIUM LEVEL 9.5 MG/DL (8.8-10.2); CARBON DIOXIDE LEVEL 26 MEQ/L (21-32); CHLORIDE LEVEL 105 MEQ/L (98-107); CHOLESTEROL LEVEL 175 MG/DL (<200); CREATININE FOR GFR 0.91 MG/DL (0.55-1.02); GLOMERULAR FILTRATION RATE > 60.0 (>45); GLUCOSE, FASTING 153 MG/DL (80-110); POTASSIUM SERUM 4.2 MEQ/L (3.5-5.1); SODIUM LEVEL 140 MEQ/L (136-145); TOTAL PROTEIN 6.7 GM/DL (6.4-8.2); TRIGLYCERIDES LEVEL 195 MG/DL (<150)
== END ==
LOC: M WUC 08:13
PROVIDERS: ATTEND Physician Assistant Medical
DX: E11.9 Type 2 diabetes mellitus without complications (principal)

== ENCOUNTER 2017-01-03 06:08 | Day surgery (SDC) | payer MEDICARE ==
[~2017-01-03] VITALS: Ht 165.1 cm; Wt 98.3 kg
[2017-01-03] MEDS ORDERED: LR 1,000 ML IV ONE (06:15)
[2017-01-03] MEDS ORDERED: HumaLOG INSULIN (NovoLOG) PER UNIT SC ONE (07:00)
[2017-01-03] MEDS ORDERED: PHENYLEPHRINE 2.5% OPHTH SOL 2ML OS ONE (07:00)
[2017-01-03] MEDS ORDERED: PROPARACAINE 0.5% OPHTH SOL 15ML OS ONE (07:00)
[2017-01-03] MEDS ORDERED: TROPICAMIDE 1% OPHTH SOLN 2ML OS ONE (07:00)
[2017-01-03] MEDS ORDERED: ACETYLCHOLINE OPHTH SOLN 1% 2ML (MIOCHOL-E) As Ordered ONE (07:31)
[2017-01-03] MEDS ORDERED: POVIDONE-IODINE 5% OPHTH PREP SOL 30ML As Ordered ONE (07:31)
[2017-01-03] MEDS ORDERED: BALANCED SALT IRRIGATION SOLUTION 500ML BAG (FOR OR EYE MACHINE) As Ordered ONE (07:32)
[2017-01-03] MEDS ORDERED: CEFUROXIME 1MG/0.1ML INTRACAMERAL INJ As Ordered ONE (07:32)
[2017-01-03] MEDS ORDERED: LIDOCAINE 0.75%/EPINEPHRINE 0.025% IN BSS 1ML SYR INTRACAMERAL (OR ONLY) As Ordered ONE (07:32)
[2017-01-03] MEDS ORDERED: DUOVISC (0.50ML VISCOAT/0.55ML PROVISC) OPHTH KIT As Ordered ONE (07:32)
[2017-01-03] MEDS ORDERED: MIDAZOLAM INJ 2 MG/2 ML VIAL (J2250) As Ordered ONE (07:36)
[2017-01-03] MEDS ORDERED: fentaNYL 100 MCG/2 ML INJECTION (J3010) As Ordered ONE (07:36)
[2017-01-03 08:45] VITALS: BP 175/75
--- NOTE | 2017-01-04 20:40 | RO ---
DATE OF PROCEDURE: 01/03/2017 PREOPERATIVE DIAGNOSIS: Visually significant nuclear sclerotic cataract left eye. POSTOPERATIVE DIAGNOSIS: Visually significant nuclear sclerotic cataract left eye. PROCEDURE: Cataract extraction with use of phacoemulsification and placement of intraocular lens, AU00T0 21.5, left eye. SURGEON: Lazaro Mustafa DO [employer] WORKER: ANESTHESIA: Local with monitored anesthesia care (MAC). COMPLICATIONS: None. POSTOPERATIVE CONDITION: Stable. INDICATION FOR SURGERY: Blurred vision left eye affecting patient's activities of daily living. DESCRIPTION OF PROCEDURE: The patient was seen in the preoperative area and properly identified. The correct operative eye was identified and marked. Attention was turned to that eye. The patient received topical antibiotics in the preoperative area. The patient then received topical dilating drops consisting of tropicamide and phenylephrine. The patient was then transferred to the operating room. The correct side was re-identified. The patient received topical anesthetics and antibiotics on the surface of the eye. The eye was prepped and draped in a sterile fashion. The upper and lower eyelids were isolated with Tegaderm tape, and the lids were held open with an adjustable speculum. Using a sideport blade, a paracentesis incision was made. Intraocular preservative-free lidocaine was then injected into the anterior chamber. Viscoelastic was then injected into the anterior chamber through the paracentesis. Using a 2.4 mm sharp-tipped keratome, the anterior chamber was entered via a temporal clear corneal incision. A continuous curvilinear capsulorrhexis was created with the aid of a 26-gauge cystotome and Utrata forceps. Hydrodissection was performed with balanced salt solution (BSS) on a blunt cannula until the nucleus was freely mobile. The crystalline lens was phacoemulsified and aspirated. Additional cohesive viscoelastic was placed into the capsular bag to deepen it. An AU00T0 21.5 lens was placed into the capsular bag and confirmed by visualizing the continuous curvilinear capsulorrhexis. Additional irrigation and aspiration was used to remove cortical material and remaining viscoelastic. The clear corneal incision was hydrated with BSS on a blunt cannula. The lens was well positioned. The incisions were then tested for leaks and found to be negative. The eye was then palpated for appropriate pressure and adjusted accordingly with BSS. The eyelid speculum was carefully removed. A shield was placed. The patient tolerated the procedure well and was discharged to the recovery unit in a stable condition. [facility] HEALTH SYSTEMRenetta
== END 2017-01-03 08:50 | disposition home or self-care (01) ==
LOC: M SDC 06:08
PROVIDERS: ATTEND Ophthalmology
DX: H25.12 Age-related nuclear cataract, left eye (principal); E11.9 Type 2 diabetes mellitus without complications; Z79.4 Long term (current) use of insulin; I10 Essential (primary) hypertension; E78.5 Hyperlipidemia, unspecified; E03.9 Hypothyroidism, unspecified; M54.5 Low back pain; M79.7 Fibromyalgia; F41.9 Anxiety disorder, unspecified; F32.9 Major depressive disorder, single episode, unspecified; Z87.891 Personal history of nicotine dependence; Z88.8 Allergy status to other drugs, medicaments and biological substances
CPT/HCPCS: 66984; J2250; J3010; V2632

== ENCOUNTER → 2017-05-30 | Outpatient (CLI) | payer MEDICARE ==
[2017-05-30 12:05] LABS: BASO # 0.1 10^3/uL (0.0-0.2); BASO % 1.4 % (0.0-1.0); EOS # 0.9 10^3/uL (0.0-0.50); EOS % 10.6 % (0.0-3.0); HEMATOCRIT 36.6 % (36.0-47.0); IMMATURE GRANULOCYTE % 0.2 % (0-3.0); LYMPH # 3.5 10^3/uL (1.5-4.5); MEAN CORPUSCULAR HEMOGLOBIN 27.3 pg (27.0-33.0); MEAN CORPUSCULAR HGB CONC 32.8 g/dl (32.0-36.5); MEAN CORPUSCULAR VOLUME 83.4 fl (80.0-96.0); MONO # 0.7 10^3/uL (0.0-0.8); MONO % 8.5 % (0.0-5.0); NEUTROPHILS # 3.3 10^3/uL (1.8-7.7); NEUTROPHILS % 38.3 % (36.0-66.0); PLATELET COUNT, AUTOMATED 191 10^3/uL (150-450); RED BLOOD COUNT 4.39 10^6/uL (4.00-5.40); RED CELL DISTRIBUTION WIDTH 13.5 % (11.5-14.5); WHITE BLOOD COUNT 8.6 10^3/uL (4.0-10.0)
[2017-05-30 12:08] LABS: APPEARANCE, URINE CLEAR (CLEAR); BACTERIA, URINE AUTO NEGATIVE (NEGATIVE); BILIRUBIN, URINE AUTO NEGATIVE (NEGATIVE); BLOOD, URINE BLOOD NEGATIVE (NEGATIVE); COLOR, URINE YELLOW (YELLOW); GLUCOSE, URINE (UA) AUTO 3+ mg/dL (NEGATIVE); KETONE, URINE AUTO NEGATIVE (NEGATIVE); LEUKOCYTE ESTERASE, URINE AUTO NEGATIVE (NEGATIVE); MUCUS, URINE SMALL (NEGATIVE); NITRITE, URINE AUTO NEGATIVE (NEGATIVE); PROTEIN, URINE AUTO NEGATIVE (NEGATIVE); RBC, URINE AUTO 2 /HPF (0-3); SPECIFIC GRAVITY URINE AUTO 1.029 (1.002-1.035); SQUAMOUS EPITHELIAL CELL UR AU 1 /HPF (0-6); UROBILINOGEN, URINE AUTO 0.2 mg/dL (0.0-2.0); WBC, URINE AUTO 2 /HPF (0-3)
[2017-05-30 12:25] LABS: TOTAL 25(OH) VITAMIN D 23.8 NG/ML (30.0-100.0)
[2017-05-30 12:26] LABS: FOLATE 14.3 NG/ML (>5.4); VITAMIN B12 LEVEL 1483 PG/ML (247-911)
[2017-05-30 12:41] LABS: MALB URINE SIEMENS 97.8 MG/L; MAU/CREAT RATIO 78.8 MCG/MG (0.0-30.0)
[2017-05-30 12:55] LABS: ESTIMATED AVERAGE GLUCOSE 220 MG/DL (60-110); HEMOGLOBIN A1c 9.3 %
[2017-05-30 12:56] LABS: ALBUMIN 3.3 GM/DL (3.2-5.2); ALKALINE PHOSPHATASE 92 U/L (45-117); ALT/SGPT 29 U/L (12-78); ANION GAP 9 MEQ/L (8-16); AST/SGOT 34 U/L (7-37); BILIRUBIN,TOTAL 0.4 MG/DL (0.2-1.0); BLOOD UREA NITROGEN 19 MG/DL (7-18); CALCIUM LEVEL 8.7 MG/DL (8.8-10.2); CARBON DIOXIDE LEVEL 22 MEQ/L (21-32); CHLORIDE LEVEL 113 MEQ/L (98-107); CHOLESTEROL LEVEL 138 MG/DL (<200); CHOLESTEROL RISK RATIO 3.833 (<5); CPK CREATINE PHOSPHOKINASE 64 U/L (26-192); FREE T4 1.14 NG/DL (0.76-1.46); GLOMERULAR FILTRATION RATE > 60.0 (>45); GLUCOSE, FASTING 122 MG/DL (70-100); HDL CHOLESTEROL 36 MG/DL (>40); LDL CHOLESTEROL 60.2 MG/DL (<100); NON-HDL-C 102 MG/DL; POTASSIUM SERUM 4.2 MEQ/L (3.5-5.1); SODIUM LEVEL 144 MEQ/L (136-145); TOTAL PROTEIN 7.4 GM/DL (6.4-8.2); TRIGLYCERIDES LEVEL 209 MG/DL (<150)
[2017-06-01 00:07] LABS: ANTINUCLEAR ANTIBODIES DIRECT Negative (Negative); Lyme Disease IgG/IgM Antibodie <0.91 ISR (0.00-0.90); Lyme Disease IgM Ab Quantitati <0.80 index (0.00-0.79)
== END ==
LOC: M WUC 09:29
DX: E11.40 Type 2 diabetes mellitus with diabetic neuropathy, unspecified (principal); M51.17 Intervertebral disc disorders with radiculopathy, lumbosacral region; I10 Essential (primary) hypertension; E78.5 Hyperlipidemia, unspecified; M79.7 Fibromyalgia; E03.9 Hypothyroidism, unspecified; E55.9 Vitamin D deficiency, unspecified
CPT/HCPCS: 82550

== ENCOUNTER 2017-07-07 17:19 | Emergency (ER) | payer OTHER, MEDICARE ==
[2017-07-07 17:53] LABS: BEDSIDE GLUCOSE 193 MG/DL (80-115)
[2017-07-07] MEDS: NS 1,000 ML IV (18:05)
[2017-07-07] MEDS: MORPHINE 4 MG/ML 1ML VIAL/SYRINGE (J2270) IV ×2 (18:06→21:37)
[2017-07-07 18:10] LABS: HEMATOCRIT 38.6 % (36.0-47.0); HEMOGLOBIN 12.9 g/dl (12.0-15.5); MEAN CORPUSCULAR HEMOGLOBIN 26.8 pg (27.0-33.0); MEAN CORPUSCULAR HGB CONC 33.4 g/dl (32.0-36.5); MEAN CORPUSCULAR VOLUME 80.2 fl (80.0-96.0); PLATELET COUNT, AUTOMATED 237 10^3/uL (150-450); RED BLOOD COUNT 4.81 10^6/uL (4.00-5.40); RED CELL DISTRIBUTION WIDTH 13.5 % (11.5-14.5)
[2017-07-07 18:16] LABS: ADD MANUAL DIFFER YES; DIFF SLIDE NUMBER 129; POSITIVE DIFF POS FLAG; WHITE BLOOD COUNT 12.6 10^3/uL (4.0-10.0)
[2017-07-07 18:21] LABS: KETONE, URINE AUTO RFX TRACE mg/dL (NEGATIVE); LEUKOCYTE ESTERASE UR AUTO RFX NEGATIVE (NEGATIVE); MUCUS, URINE RFX SMALL (NEGATIVE); NITRITE, URINE AUTO RFX NEGATIVE (NEGATIVE); RBC, URINE AUTO RFX 1 /HPF (0-3); SPECIFIC GRAVITY UR AUTO RFX 1.032 (1.002-1.035); SQUAM EPITHELIAL CELL UR AURFX 0 /HPF (0-6); WBC, URINE AUTO RFX 2 /HPF (0-3)
[2017-07-07 18:31] LABS: ALBUMIN 3.8 GM/DL (3.2-5.2); ALBUMIN/GLOBULIN RATIO 0.79 (1.00-1.93); ALKALINE PHOSPHATASE 127 U/L (45-117); ALT/SGPT 30 U/L (12-78); ANION GAP 10 MEQ/L (8-16); AST/SGOT 37 U/L (7-37); BILIRUBIN,DIRECT 0.2 MG/DL (0.0-0.2); BILIRUBIN,TOTAL 1.4 MG/DL (0.2-1.0); BLOOD UREA NITROGEN 20 MG/DL (7-18); CALCIUM LEVEL 9.7 MG/DL (8.8-10.2); CARBON DIOXIDE LEVEL 22 MEQ/L (21-32); CHLORIDE LEVEL 107 MEQ/L (98-107); GLOMERULAR FILTRATION RATE > 60.0 (>45); GLUCOSE, FASTING 181 MG/DL (70-100); LIPASE 121 U/L (73-393); POTASSIUM SERUM 4.1 MEQ/L (3.5-5.1); SODIUM LEVEL 139 MEQ/L (136-145); TOTAL PROTEIN 8.6 GM/DL (6.4-8.2)
[2017-07-07 18:41] LABS: BASOPHILS 2 % (0-4); EOSINOPHILS 5 % (0-5); LYMPHOCYTES 43 % (16-52); MONOCYTES 4 % (0-8); NEUTROPHILS 46 % (35-75); PLATELET ESTIMATE NORMAL (NORMAL)
[2017-07-07 19:30] LABS: CK-MB VALUE MASS 1.8 NG/ML (<3.6); CPK CREATINE PHOSPHOKINASE 76 U/L (26-192); MB/CK RELATIVE INDEX 2.36 (< OR =4); TROPONIN I 0.46 NG/ML (< 0.10)
[2017-07-07] MEDS: PROPRANOLOL 20 MG TAB PO (19:42)
[2017-07-07] MEDS ORDERED: HEPARIN DRIP 25,000 UNITS in APPROPRIATE DILUENT 1 EA IV (20:49)
[2017-07-07] MEDS ORDERED: HEPARIN SOD (PORCINE) 5000 UNITS/ML VIAL IV (21:00)
[2017-07-07 21:03] LABS: INR 1.07; PROTHROMBIN TIME 14.1 SECONDS (12.4-14.5)
[2017-07-07] MEDS: CLOPIDOGREL 300 MG TAB (PLAVIX) PO (21:30)
[2017-07-07] MEDS: NITROGLYCERIN 2% OINT 1 GM *U/D* PKT TOP (21:30)
[2017-07-07] MEDS: ASPIRIN 81 MG CHEW TABLET PO (21:30)
[2017-07-07] MEDS ORDERED: ISOVUE-370 76% 100ML VIAL (Q9967) As Ordered (22:16)
[2017-07-07 22:25] LABS: CPK CREATINE PHOSPHOKINASE 79 U/L (26-192); TROPONIN I 0.44 NG/ML (< 0.10)
[2017-07-07 22:26] LABS: CK-MB VALUE MASS 2.1 NG/ML (<3.6); MB/CK RELATIVE INDEX 2.65 (< OR =4)
[2017-07-07] MEDS: cloNIDine 0.2 MG TAB PO (22:46)
[2017-07-07] MEDS ORDERED: hydrALAZINE INJ 20 MG/ML VIAL As Ordered (23:15)
[2017-07-07] MEDS: hydrALAZINE INJ 20 MG/ML VIAL IV (23:23)
[2017-07-07] MEDS ORDERED: ONDANSETRON 4MG/2ML VIAL (J2405) As Ordered (23:33)
[2017-07-07] MEDS: ONDANSETRON 4MG/2ML VIAL (J2405) IV (23:44)
== END 2017-07-07 23:59 | disposition short-term general hospital (02) ==
LOC: M ED 17:19
DX: I21.4 Non-ST elevation (NSTEMI) myocardial infarction (principal); R79.89 Other specified abnormal findings of blood chemistry; I10 Essential (primary) hypertension; E11.9 Type 2 diabetes mellitus without complications; E03.9 Hypothyroidism, unspecified; M79.7 Fibromyalgia; E78.00 Pure hypercholesterolemia, unspecified; Z88.8 Allergy status to other drugs, medicaments and biological substances; Z88.1 Allergy status to other antibiotic agents; Z79.899 Other long term (current) drug therapy; Z79.82 Long term (current) use of aspirin; Z79.4 Long term (current) use of insulin
CPT/HCPCS: J2270

== ENCOUNTER → 2017-07-15 | Outpatient (CLI) | payer OTHER ==
[2017-07-15 10:00] LABS: ANION GAP 11 MEQ/L (8-16); BLOOD UREA NITROGEN 29 MG/DL (7-18); CALCIUM LEVEL 9.5 MG/DL (8.8-10.2); CARBON DIOXIDE LEVEL 22 MEQ/L (21-32); CHLORIDE LEVEL 110 MEQ/L (98-107); CREATININE FOR GFR 0.99 MG/DL (0.55-1.30); GLOMERULAR FILTRATION RATE 59.9 (>45); GLUCOSE, FASTING 162 MG/DL (70-100); POTASSIUM SERUM 4.3 MEQ/L (3.5-5.1); SODIUM LEVEL 143 MEQ/L (136-145)
== END ==
LOC: M WUC 08:45
DX: I16.0 Hypertensive urgency (principal)
CPT/HCPCS: 80048

== ENCOUNTER 2017-07-24 14:42 | Emergency (ER) | payer OTHER, MEDICARE ==
[2017-07-24] MEDS ORDERED: KETOROLAC 30 MG/ML VIAL (J1885) As Ordered ×2 (18:12)
[2017-07-25 03:16] LABS: ALBUMIN 3.5 GM/DL (3.2-5.2); ALKALINE PHOSPHATASE 119 U/L (45-117); ALT/SGPT 35 U/L (12-78); ANION GAP 13 MEQ/L (8-16); AST/SGOT 53 U/L (7-37); BILIRUBIN,DIRECT 0.2 MG/DL (0.0-0.2); BILIRUBIN,TOTAL 0.7 MG/DL (0.2-1.0); BLOOD UREA NITROGEN 28 MG/DL (7-18); CALCIUM LEVEL 9.2 MG/DL (8.8-10.2); CARBON DIOXIDE LEVEL 17 MEQ/L (21-32); CHLORIDE LEVEL 112 MEQ/L (98-107); CREATININE FOR GFR 1.07 MG/DL (0.55-1.30); GLOMERULAR FILTRATION RATE 54.8 (>45); GLUCOSE, FASTING 223 MG/DL (70-100); LIPASE 333 U/L (73-393); POTASSIUM SERUM 4.4 MEQ/L (3.5-5.1); SODIUM LEVEL 142 MEQ/L (136-145); TOTAL PROTEIN 7.9 GM/DL (6.4-8.2)
[2017-07-25 07:56] LABS: BASO # 0.1 10^3/uL (0.0-0.2); BASO % 1.4 % (0.0-1.0); EOS # 0.6 10^3/uL (0.0-0.50); EOS % 6.1 % (0.0-3.0); HEMATOCRIT 30.8 % (36.0-47.0); IMMATURE GRANULOCYTE % 0.3 % (0-3.0); LYMPH # 2.9 10^3/uL (1.5-4.5); MEAN CORPUSCULAR HEMOGLOBIN 27.2 pg (27.0-33.0); MEAN CORPUSCULAR HGB CONC 32.5 g/dl (32.0-36.5); MEAN CORPUSCULAR VOLUME 83.9 fl (80.0-96.0); MONO # 0.9 10^3/uL (0.0-0.8); MONO % 9.2 % (0.0-5.0); NEUTROPHILS # 4.8 10^3/uL (1.8-7.7); PLATELET COUNT, AUTOMATED 218 10^3/uL (150-450); RED BLOOD COUNT 3.67 10^6/uL (4.00-5.40); RED CELL DISTRIBUTION WIDTH 14.5 % (11.5-14.5); WHITE BLOOD COUNT 9.2 10^3/uL (4.0-10.0)
[2017-07-25 07:58] LABS: APPEARANCE, URINE CLEAR (CLEAR); BACTERIA, URINE AUTO NEGATIVE (NEGATIVE); BILIRUBIN, URINE AUTO NEGATIVE (NEGATIVE); BLOOD, URINE BLOOD NEGATIVE (NEGATIVE); COLOR, URINE YELLOW (YELLOW); GLUCOSE, URINE (UA) AUTO 3+ mg/dL (NEGATIVE); KETONE, URINE AUTO NEGATIVE (NEGATIVE); LEUKOCYTE ESTERASE, URINE AUTO NEGATIVE (NEGATIVE); MUCUS, URINE SMALL (NEGATIVE); NITRITE, URINE AUTO NEGATIVE (NEGATIVE); PROTEIN, URINE AUTO NEGATIVE (NEGATIVE); RBC, URINE AUTO 1 /HPF (0-3); SPECIFIC GRAVITY URINE AUTO 1.026 (1.002-1.035); SQUAMOUS EPITHELIAL CELL UR AU 1 /HPF (0-6); UROBILINOGEN, URINE AUTO 0.2 mg/dL (0.0-2.0); WBC, URINE AUTO 1 /HPF (0-3)
== END 2017-07-24 21:25 | disposition home or self-care (01) ==
LOC: M ED 14:42
DX: R10.9 Unspecified abdominal pain (principal); K74.60 Unspecified cirrhosis of liver; I25.10 Atherosclerotic heart disease of native coronary artery without angina pectoris; E11.9 Type 2 diabetes mellitus without complications; I10 Essential (primary) hypertension; E78.5 Hyperlipidemia, unspecified; K76.0 Fatty (change of) liver, not elsewhere classified; Z88.1 Allergy status to other antibiotic agents; Z79.82 Long term (current) use of aspirin; Z79.4 Long term (current) use of insulin; Z79.899 Other long term (current) drug therapy; Z98.890 Other specified postprocedural states
CPT/HCPCS: 74176; J1885

== ENCOUNTER 2017-08-02 09:42 | Inpatient (IN) | payer OTHER, MEDICARE ==
[2017-08-02] MEDS ORDERED: ONDANSETRON 4MG/2ML VIAL (J2405) As Ordered (10:28)
[2017-08-02 10:41] LABS: BASO # 0.1 10^3/uL (0.0-0.2); BASO % 1.1 % (0.0-1.0); EOS # 0.4 10^3/uL (0.0-0.50); EOS % 5.7 % (0.0-3.0); HEMOGLOBIN 8.5 g/dl (12.0-15.5); IMMATURE GRANULOCYTE % 0.4 % (0-3.0); LYMPH # 2.3 10^3/uL (1.5-4.5); LYMPH % 29.7 % (24.0-44.0); MEAN CORPUSCULAR HEMOGLOBIN 26.6 pg (27.0-33.0); MEAN CORPUSCULAR HGB CONC 31.5 g/dl (32.0-36.5); MEAN CORPUSCULAR VOLUME 84.4 fl (80.0-96.0); MONO # 0.8 10^3/uL (0.0-0.8); MONO % 10.9 % (0.0-5.0); NEUTROPHILS % 52.2 % (36.0-66.0); PLATELET COUNT, AUTOMATED 210 10^3/uL (150-450); RED CELL DISTRIBUTION WIDTH 14.3 % (11.5-14.5); WHITE BLOOD COUNT 7.6 10^3/uL (4.0-10.0)
[2017-08-02] MEDS: NS 1,000 ML IV ×2 (10:43→18:42)
[2017-08-02] MEDS: ONDANSETRON 4MG/2ML VIAL (J2405) IV (10:43)
[2017-08-02 10:51] LABS: INR 1.09; PROTHROMBIN TIME 14.3 SECONDS (12.4-14.5)
[2017-08-02 10:52] LABS: PARTIAL THROMBOPLASTIN TIME 30.5 SECONDS (26.8-37.9)
[2017-08-02 11:00] LABS: AMMONIA 65 uMOL/L (<32)
[2017-08-02 11:07] LABS: ALBUMIN 3.5 GM/DL (3.2-5.2); ALBUMIN/GLOBULIN RATIO 0.92 (1.00-1.93); ALKALINE PHOSPHATASE 92 U/L (45-117); ALT/SGPT 32 U/L (12-78); ANION GAP 12 MEQ/L (8-16); AST/SGOT 32 U/L (7-37); BILIRUBIN,DIRECT 0.2 MG/DL (0.0-0.2); BILIRUBIN,TOTAL 0.8 MG/DL (0.2-1.0); BLOOD UREA NITROGEN 31 MG/DL (7-18); CALCIUM LEVEL 9.8 MG/DL (8.8-10.2); CARBON DIOXIDE LEVEL 21 MEQ/L (21-32); CHLORIDE LEVEL 104 MEQ/L (98-107); CPK CREATINE PHOSPHOKINASE 72 U/L (26-192); CREATININE FOR GFR 1.47 MG/DL (0.55-1.30); FREE T4 1.38 NG/DL (0.76-1.46); GLUCOSE, FASTING 320 MG/DL (70-100); LIPASE 191 U/L (73-393); POTASSIUM SERUM 4.4 MEQ/L (3.5-5.1); SODIUM LEVEL 137 MEQ/L (136-145); TOTAL PROTEIN 7.3 GM/DL (6.4-8.2); TROPONIN I 0.09 NG/ML (< 0.10)
[2017-08-02 11:12] LABS: CK-MB VALUE MASS < 1.0 NG/ML (<3.6); MB/CK RELATIVE INDEX 1.38 (< OR =4); NT-PRO BNP 151 PG/ML (<125)
[2017-08-02 11:20] LABS: LACTIC ACID SEPSIS PROTOCOL 5.9 MMOL/L (0.4-2.0)
[2017-08-02] MEDS ORDERED: ISOVUE-370 76% 100ML VIAL (Q9967) As Ordered (12:24)
[2017-08-02] MEDS: NORCO, ANEXSIA 5/325MG TABLET (HYDROcodone/ACETAMINOPHEN) PO (14:05)
[2017-08-02 14:25] LABS: IMMEDIATE SPIN CROSSMATCH 1 2
[2017-08-02] MEDS ORDERED: ONDANSETRON 4MG/2ML VIAL (J2405) IV ×2 (15:15→21:15)
[2017-08-02] MEDS ORDERED: GLUCOSE 4 GM CHEW TABLET PO (16:00)
[2017-08-02] MEDS ORDERED: DEXTROSE 50% 50 ML SYRINGE IV (16:00)
[2017-08-02] MEDS ORDERED: GLUCAGON FOR INJ 1 MG VIAL (J1610) SC (16:00)
[2017-08-02] MEDS: PANTOPRAZOLE SODIUM 40 MG in D5W 50 ML IV (18:25)
[2017-08-02 18:42] LABS: BEDSIDE GLUCOSE 169 MG/DL (80-115)
[2017-08-02] MEDS: cefTRIAXone SOD 1 GM in D5W MINI-BAG PLUS 50 ML IV (18:42)
[2017-08-02] MEDS ORDERED: SLF 3 ML SYR IV (18:45)
[2017-08-02] MEDS: HumaLOG INSULIN (NovoLOG) PER UNIT SC ×2 (18:51→23:06)
[2017-08-02] MEDS ORDERED: PROPOFOL 200 MG/20 ML VIAL As Ordered (20:37)
[2017-08-02] MEDS ORDERED: LIDOCAINE 2% INJ 100 MG/5 ML SDV (FOR ANES.) As Ordered (20:37)
[2017-08-02] MEDS ORDERED: fentaNYL 100 MCG/2 ML INJECTION (J3010) IV (21:15)
[2017-08-02] MEDS: LR 1,000 ML IV (21:15)
[2017-08-02] MEDS ORDERED: NITROGLYCERIN 0.4 MG SUBL TABLET SL (22:45)
[2017-08-02] MEDS: SLF 3 ML SYR IV (23:03)
[2017-08-02] MEDS: GOLYTELY SOLN 4000 ML BTL PO (23:03)
[2017-08-02] MEDS: MOM 30ML SUSPENSION UDC PO (23:03)
[2017-08-02 23:07] LABS: BEDSIDE GLUCOSE 107 MG/DL (80-115)
[2017-08-02 23:09] LABS: HEMATOCRIT 30.2 % (36.0-47.0)
[2017-08-02 23:28] LABS: CK-MB VALUE MASS 1.1 NG/ML (<3.6); CPK CREATINE PHOSPHOKINASE 83 U/L (26-192); MB/CK RELATIVE INDEX 1.32 (< OR =4); TROPONIN I 0.07 NG/ML (< 0.10)
[2017-08-03 04:51] LABS: HEMATOCRIT 30.7 % (36.0-47.0); HEMOGLOBIN 10.1 g/dl (12.0-15.5); MEAN CORPUSCULAR HEMOGLOBIN 26.7 pg (27.0-33.0); MEAN CORPUSCULAR HGB CONC 32.9 g/dl (32.0-36.5); MEAN CORPUSCULAR VOLUME 81.2 fl (80.0-96.0); PLATELET COUNT, AUTOMATED 176 10^3/uL (150-450); RED BLOOD COUNT 3.78 10^6/uL (4.00-5.40); RED CELL DISTRIBUTION WIDTH 14.6 % (11.5-14.5); WHITE BLOOD COUNT 7.6 10^3/uL (4.0-10.0)
[2017-08-03 05:10] LABS: ALBUMIN 3.2 GM/DL (3.2-5.2); ALBUMIN/GLOBULIN RATIO 0.86 (1.00-1.93); ALKALINE PHOSPHATASE 77 U/L (45-117); ALT/SGPT 31 U/L (12-78); ANION GAP 9 MEQ/L (8-16); AST/SGOT 39 U/L (7-37); BILIRUBIN,TOTAL 1.1 MG/DL (0.2-1.0); BLOOD UREA NITROGEN 22 MG/DL (7-18); CALCIUM LEVEL 8.4 MG/DL (8.8-10.2); CARBON DIOXIDE LEVEL 24 MEQ/L (21-32); CHLORIDE LEVEL 111 MEQ/L (98-107); CK-MB VALUE MASS 1.4 NG/ML (<3.6); CPK CREATINE PHOSPHOKINASE 91 U/L (26-192); CREATININE FOR GFR 1.02 MG/DL (0.55-1.30); GLOMERULAR FILTRATION RATE 57.9 (>45); GLUCOSE, FASTING 129 MG/DL (70-100); MB/CK RELATIVE INDEX 1.53 (< OR =4); POTASSIUM SERUM 4.1 MEQ/L (3.5-5.1); SODIUM LEVEL 144 MEQ/L (136-145); TOTAL PROTEIN 6.9 GM/DL (6.4-8.2)
[2017-08-03] MEDS: HumaLOG INSULIN (NovoLOG) PER UNIT SC ×4 (06:00→21:00)
[2017-08-03] MEDS: LEVOTHYROXINE 50MCG TABLET (0.05MG) PO (06:40)
[2017-08-03] MEDS: GOLYTELY SOLN 4000 ML BTL PO (06:40)
[2017-08-03] MEDS: SLF 3 ML SYR IV ×3 (06:40→20:36)
[2017-08-03] MEDS: ATORVASTATIN 20 MG TAB PO (09:17)
[2017-08-03] MEDS: PANTOPRAZOLE 40MG TAB (PROTONIX) PO (09:17)
[2017-08-03] MEDS: ASPIRIN 81 MG ENTERIC TAB PO (09:17)
[2017-08-03 11:05] LABS: HEMATOCRIT 31.8 % (36.0-47.0); HEMOGLOBIN 10.3 g/dl (12.0-15.5)
[2017-08-03 11:28] LABS: CK-MB VALUE MASS < 1.0 NG/ML (<3.6); CPK CREATINE PHOSPHOKINASE 103 U/L (26-192); MB/CK RELATIVE INDEX 0.97 (< OR =4)
[2017-08-03 11:47] LABS: BEDSIDE GLUCOSE 233 MG/DL (80-115)
[2017-08-03] MEDS: PERCOCET 5MG/325MG TAB PO ×2 (12:12→16:15)
[2017-08-03] MEDS ORDERED: LIDOCAINE 2% INJ 100 MG/5 ML SDV (FOR ANES.) As Ordered (13:29)
[2017-08-03] MEDS ORDERED: fentaNYL 100 MCG/2 ML INJECTION (J3010) As Ordered (13:29)
[2017-08-03] MEDS ORDERED: PROPOFOL 200 MG/20 ML VIAL As Ordered (13:29)
[2017-08-03] MEDS ORDERED: MIDAZOLAM INJ 2 MG/2 ML VIAL (J2250) As Ordered (13:30)
[2017-08-03 16:54] LABS: BEDSIDE GLUCOSE 250 MG/DL (80-115)
[2017-08-03] MEDS: amLODIPine 10 MG TAB PO (18:55)
[2017-08-03] MEDS: CARVedilol 6.25 MG TAB PO (20:36)
[2017-08-03 21:26] LABS: BEDSIDE GLUCOSE 263 MG/DL (80-115)
[2017-08-03] MEDS: metFORMIN (GLUCOPHAGE) 1000 MG TABLET PO (21:36)
[2017-08-04] MEDS: PERCOCET 5MG/325MG TAB PO (03:12)
[2017-08-04] MEDS: LEVOTHYROXINE 50MCG TABLET (0.05MG) PO (05:24)
[2017-08-04] MEDS: SLF 3 ML SYR IV ×2 (05:24→12:14)
[2017-08-04 06:55] LABS: HEMATOCRIT 31.1 % (36.0-47.0); MEAN CORPUSCULAR HEMOGLOBIN 26.9 pg (27.0-33.0); MEAN CORPUSCULAR HGB CONC 32.2 g/dl (32.0-36.5); MEAN CORPUSCULAR VOLUME 83.6 fl (80.0-96.0); PLATELET COUNT, AUTOMATED 167 10^3/uL (150-450); RED BLOOD COUNT 3.72 10^6/uL (4.00-5.40); RED CELL DISTRIBUTION WIDTH 14.6 % (11.5-14.5); WHITE BLOOD COUNT 7.4 10^3/uL (4.0-10.0)
[2017-08-04 07:13] LABS: ALBUMIN 3.2 GM/DL (3.2-5.2); ALKALINE PHOSPHATASE 77 U/L (45-117); ALT/SGPT 32 U/L (12-78); ANION GAP 9 MEQ/L (8-16); AST/SGOT 39 U/L (7-37); BILIRUBIN,TOTAL 0.9 MG/DL (0.2-1.0); BLOOD UREA NITROGEN 14 MG/DL (7-18); CALCIUM LEVEL 8.7 MG/DL (8.8-10.2); CARBON DIOXIDE LEVEL 21 MEQ/L (21-32); CHLORIDE LEVEL 110 MEQ/L (98-107); CREATININE FOR GFR 1.03 MG/DL (0.55-1.30); GLOMERULAR FILTRATION RATE 57.3 (>45); GLUCOSE, FASTING 267 MG/DL (70-100); POTASSIUM SERUM 4.1 MEQ/L (3.5-5.1); SODIUM LEVEL 140 MEQ/L (136-145); TOTAL PROTEIN 7.2 GM/DL (6.4-8.2)
[2017-08-04] MEDS: ASPIRIN 81 MG ENTERIC TAB PO (07:52)
[2017-08-04] MEDS: HumaLOG INSULIN (NovoLOG) PER UNIT SC ×2 (07:52→12:29)
[2017-08-04] MEDS: metFORMIN (GLUCOPHAGE) 1000 MG TABLET PO (07:53)
[2017-08-04] MEDS: amLODIPine 10 MG TAB PO (07:53)
[2017-08-04] MEDS: ATORVASTATIN 20 MG TAB PO (07:53)
[2017-08-04] MEDS: CARVedilol 6.25 MG TAB PO (07:53)
[2017-08-04] MEDS: PANTOPRAZOLE 40MG TAB (PROTONIX) PO (07:53)
[2017-08-04 11:32] LABS: BEDSIDE GLUCOSE 232 MG/DL (80-115)
== END 2017-08-04 13:28 | disposition home or self-care (01) | DRG 391 ==
LOC: M PED 08-03 22:09 → M ED 09:42 → M ED INP 15:03 → M PCU 18:15
PROC: 0DB98ZX Excision of Duodenum, Via Natural or Artificial Opening Endoscopic, Diagnostic (ICD-10-PCS; principal; 2017-08-02 20:12)
PROC: 0DJD8ZZ Inspection of Lower Intestinal Tract, Via Natural or Artificial Opening Endoscopic (ICD-10-PCS; 2017-08-02 20:30)
PROC: 30233N1 Transfusion of Nonautologous Red Blood Cells into Peripheral Vein, Percutaneous Approach (ICD-10-PCS; 2017-08-02 20:30)
DX: K31.89 Other diseases of stomach and duodenum (principal); I21.4 Non-ST elevation (NSTEMI) myocardial infarction; I50.32 Chronic diastolic (congestive) heart failure; E87.2 Acidosis; N17.9 Acute kidney failure, unspecified; D62 Acute posthemorrhagic anemia; I11.0 Hypertensive heart disease with heart failure; E11.9 Type 2 diabetes mellitus without complications; E78.5 Hyperlipidemia, unspecified; K57.30 Diverticulosis of large intestine without perforation or abscess without bleeding; E03.9 Hypothyroidism, unspecified; K58.9 Irritable bowel syndrome, unspecified; K74.60 Unspecified cirrhosis of liver; Z79.82 Long term (current) use of aspirin; Z79.4 Long term (current) use of insulin; Z79.899 Other long term (current) drug therapy; Z88.1 Allergy status to other antibiotic agents; Z95.5 Presence of coronary angioplasty implant and graft

== ENCOUNTER → 2017-08-07 | Outpatient (CLI) | payer OTHER | LOC: M RAD 11:39 | DX: M51.36 Other intervertebral disc degeneration, lumbar region (principal) | CPT/HCPCS: 72114 ==

== ENCOUNTER 2017-08-12 15:52 | Inpatient (IN) | payer OTHER ==
[2017-08-12 18:40] LABS: BASO # 0.1 10^3/uL (0.0-0.2); BASO % 0.9 % (0.0-1.0); EOS # 0.3 10^3/uL (0.0-0.50); EOS % 5.2 % (0.0-3.0); HEMATOCRIT 24.1 % (36.0-47.0); HEMOGLOBIN 7.7 g/dl (12.0-15.5); IMMATURE GRANULOCYTE % 0.2 % (0-3.0); LYMPH # 3.2 10^3/uL (1.5-4.5); LYMPH % 49.1 % (24.0-44.0); MEAN CORPUSCULAR HEMOGLOBIN 26.5 pg (27.0-33.0); MEAN CORPUSCULAR VOLUME 82.8 fl (80.0-96.0); MONO # 0.6 10^3/uL (0.0-0.8); MONO % 8.7 % (0.0-5.0); NEUTROPHILS # 2.4 10^3/uL (1.8-7.7); NEUTROPHILS % 35.9 % (36.0-66.0); PLATELET COUNT, AUTOMATED 174 10^3/uL (150-450); RED BLOOD COUNT 2.91 10^6/uL (4.00-5.40); RED CELL DISTRIBUTION WIDTH 14.3 % (11.5-14.5); WHITE BLOOD COUNT 6.6 10^3/uL (4.0-10.0)
[2017-08-12 18:49] LABS: INR 1.14; PROTHROMBIN TIME 14.8 SECONDS (12.4-14.5)
[2017-08-12 18:50] LABS: PARTIAL THROMBOPLASTIN TIME 32.7 SECONDS (26.8-37.9)
[2017-08-12] MEDS: PANTOPRAZOLE 40MG INJ (PROTONIX) (C9113) IV (19:00)
[2017-08-12 19:23] LABS: ALBUMIN 3.3 GM/DL (3.2-5.2); ALBUMIN/GLOBULIN RATIO 0.77 (1.00-1.93); ALKALINE PHOSPHATASE 82 U/L (45-117); ALT/SGPT 34 U/L (12-78); ANION GAP 14 MEQ/L (8-16); AST/SGOT 34 U/L (7-37); BILIRUBIN,DIRECT 0.2 MG/DL (0.0-0.2); BILIRUBIN,TOTAL 0.7 MG/DL (0.2-1.0); BLOOD UREA NITROGEN 31 MG/DL (7-18); CALCIUM LEVEL 9.2 MG/DL (8.8-10.2); CARBON DIOXIDE LEVEL 19 MEQ/L (21-32); CHLORIDE LEVEL 109 MEQ/L (98-107); CREATININE FOR GFR 1.33 MG/DL (0.55-1.30); GLOMERULAR FILTRATION RATE 42.6 (>45); GLUCOSE, FASTING 171 MG/DL (70-100); POTASSIUM SERUM 4.3 MEQ/L (3.5-5.1); SODIUM LEVEL 142 MEQ/L (136-145); TOTAL PROTEIN 7.6 GM/DL (6.4-8.2)
[2017-08-12 19:26] LABS: CPK CREATINE PHOSPHOKINASE 64 U/L (26-192); TROPONIN I 0.07 NG/ML (< 0.10)
[2017-08-12 19:27] LABS: CK-MB VALUE MASS 1.2 NG/ML (<3.6); MB/CK RELATIVE INDEX 1.87 (< OR =4)
[2017-08-12] MEDS: TICAGRELOR 90 MG TABLET (BRILINTA) PO (21:00)
[2017-08-12] MEDS: NS 1,000 ML IV (21:24)
[2017-08-12] MEDS ORDERED: DEXTROSE 50% 50 ML SYRINGE IV (21:30)
[2017-08-12] MEDS ORDERED: ACETAMINOPHEN TAB 650MG DOSE (2X325MG) PO (21:30)
[2017-08-12] MEDS ORDERED: GLUCAGON FOR INJ 1 MG VIAL (J1610) SC (21:30)
[2017-08-12] MEDS ORDERED: GLUCOSE 4 GM CHEW TABLET PO (21:30)
[2017-08-12 23:01] LABS: BEDSIDE GLUCOSE 252 MG/DL (80-115)
[2017-08-12 23:04] LABS: IMMEDIATE SPIN CROSSMATCH 1 2
[2017-08-12] MEDS: tiZANidine 4 MG TAB PO (23:16)
[2017-08-12] MEDS: POTASSIUM CHLORIDE 10 MEQ SR TABLET PO (23:16)
[2017-08-12] MEDS: CARVedilol 6.25 MG TAB PO (23:17)
[2017-08-12] MEDS: LEVEMIR (INSULIN DETEMIR) 1 UNITS/0.01ML SC (23:18)
[2017-08-12] MEDS: HumaLOG INSULIN (NovoLOG) PER UNIT SC (23:18)
[2017-08-13 07:06] LABS: BASO # 0.1 10^3/uL (0.0-0.2); EOS # 0.3 10^3/uL (0.0-0.50); EOS % 5.3 % (0.0-3.0); HEMOGLOBIN 8.9 g/dl (12.0-15.5); IMMATURE GRANULOCYTE % 0.2 % (0-3.0); LYMPH # 2.8 10^3/uL (1.5-4.5); LYMPH % 54.2 % (24.0-44.0); MEAN CORPUSCULAR HEMOGLOBIN 27.1 pg (27.0-33.0); MEAN CORPUSCULAR VOLUME 82.1 fl (80.0-96.0); MONO # 0.6 10^3/uL (0.0-0.8); NEUTROPHILS # 1.4 10^3/uL (1.8-7.7); NEUTROPHILS % 27.3 % (36.0-66.0); PLATELET COUNT, AUTOMATED 145 10^3/uL (150-450); RED BLOOD COUNT 3.29 10^6/uL (4.00-5.40); WHITE BLOOD COUNT 5.1 10^3/uL (4.0-10.0)
[2017-08-13] MEDS: NS 1,000 ML IV ×3 (07:24→17:40)
[2017-08-13 07:26] LABS: BEDSIDE GLUCOSE 148 MG/DL (80-115)
[2017-08-13] MEDS: HumaLOG INSULIN (NovoLOG) PER UNIT SC ×4 (07:29→20:45)
[2017-08-13 07:42] LABS: ANION GAP 11 MEQ/L (8-16); BLOOD UREA NITROGEN 28 MG/DL (7-18); CALCIUM LEVEL 8.8 MG/DL (8.8-10.2); CARBON DIOXIDE LEVEL 23 MEQ/L (21-32); CHLORIDE LEVEL 111 MEQ/L (98-107); CREATININE FOR GFR 0.97 MG/DL (0.55-1.30); GLOMERULAR FILTRATION RATE > 60.0 (>45); GLUCOSE, FASTING 150 MG/DL (70-100); POTASSIUM SERUM 4.1 MEQ/L (3.5-5.1); SODIUM LEVEL 145 MEQ/L (136-145)
[2017-08-13] MEDS: PANTOPRAZOLE 40MG INJ (PROTONIX) (C9113) IV (08:48)
[2017-08-13] MEDS: ISOSORBIDE MON. (IMDUR) 30 MG XR TAB PO (08:48)
[2017-08-13] MEDS: amLODIPine 10 MG TAB PO (08:48)
[2017-08-13] MEDS: POTASSIUM CHLORIDE 10 MEQ SR TABLET PO ×2 (08:49→20:48)
[2017-08-13] MEDS: ATORVASTATIN 20 MG TAB PO (08:49)
[2017-08-13] MEDS: CARVedilol 6.25 MG TAB PO ×2 (08:49→20:48)
[2017-08-13] MEDS: VALSARTAN 80 MG TAB (DIOVAN) PO ×2 (08:49→23:16)
[2017-08-13] MEDS: LEVOTHYROXINE 25MCG TABLET (0.025MG) PO (08:50)
[2017-08-13] MEDS: TICAGRELOR 90 MG TABLET (BRILINTA) PO ×2 (08:50→20:46)
[2017-08-13] MEDS: FUROSEMIDE 20 MG TAB PO (08:50)
[2017-08-13 11:53] LABS: BEDSIDE GLUCOSE 276 MG/DL (80-115)
[2017-08-13] MEDS ORDERED: tiZANidine 4 MG TAB PO (12:00)
[2017-08-13 14:56] LABS: HEMATOCRIT 30.7 % (36.0-47.0); HEMOGLOBIN 10.1 g/dl (12.0-15.5); MEAN CORPUSCULAR HEMOGLOBIN 27.2 pg (27.0-33.0); MEAN CORPUSCULAR HGB CONC 32.9 g/dl (32.0-36.5); MEAN CORPUSCULAR VOLUME 82.5 fl (80.0-96.0); PLATELET COUNT, AUTOMATED 187 10^3/uL (150-450); RED BLOOD COUNT 3.72 10^6/uL (4.00-5.40); RED CELL DISTRIBUTION WIDTH 13.9 % (11.5-14.5); WHITE BLOOD COUNT 6.6 10^3/uL (4.0-10.0)
[2017-08-13] MEDS: SUCRALFATE 1 GM TAB PO ×3 (15:05→20:47)
[2017-08-13 17:12] LABS: BEDSIDE GLUCOSE 284 MG/DL (80-115)
[2017-08-13 20:31] LABS: BEDSIDE GLUCOSE 276 MG/DL (80-115)
[2017-08-13] MEDS: LEVEMIR (INSULIN DETEMIR) 1 UNITS/0.01ML SC (20:46)
[2017-08-13] MEDS: NORCO, ANEXSIA 5/325MG TABLET (HYDROcodone/ACETAMINOPHEN) PO (20:47)
[2017-08-14] MEDS: VALSARTAN 80 MG TAB (DIOVAN) PO ×2 (01:32→11:02)
[2017-08-14 06:44] LABS: HEMATOCRIT 28.9 % (36.0-47.0); HEMOGLOBIN 9.6 g/dl (12.0-15.5); MEAN CORPUSCULAR HEMOGLOBIN 26.8 pg (27.0-33.0); MEAN CORPUSCULAR HGB CONC 33.2 g/dl (32.0-36.5); MEAN CORPUSCULAR VOLUME 80.7 fl (80.0-96.0); PLATELET COUNT, AUTOMATED 189 10^3/uL (150-450); RED BLOOD COUNT 3.58 10^6/uL (4.00-5.40); RED CELL DISTRIBUTION WIDTH 13.9 % (11.5-14.5); WHITE BLOOD COUNT 7.2 10^3/uL (4.0-10.0)
[2017-08-14] MEDS: NORCO, ANEXSIA 5/325MG TABLET (HYDROcodone/ACETAMINOPHEN) PO ×3 (06:57→20:53)
[2017-08-14] MEDS: SUCRALFATE 1 GM TAB PO ×4 (06:57→20:52)
[2017-08-14 07:11] LABS: ALBUMIN 3.3 GM/DL (3.2-5.2); ALBUMIN/GLOBULIN RATIO 0.85 (1.00-1.93); ALKALINE PHOSPHATASE 74 U/L (45-117); ALT/SGPT 30 U/L (12-78); ANION GAP 10 MEQ/L (8-16); AST/SGOT 36 U/L (7-37); BILIRUBIN,TOTAL 0.9 MG/DL (0.2-1.0); BLOOD UREA NITROGEN 16 MG/DL (7-18); CALCIUM LEVEL 8.8 MG/DL (8.8-10.2); CARBON DIOXIDE LEVEL 24 MEQ/L (21-32); CHLORIDE LEVEL 109 MEQ/L (98-107); CREATININE FOR GFR 0.82 MG/DL (0.55-1.30); GLOMERULAR FILTRATION RATE > 60.0 (>45); GLUCOSE, FASTING 163 MG/DL (70-100); POTASSIUM SERUM 3.7 MEQ/L (3.5-5.1); SODIUM LEVEL 143 MEQ/L (136-145); TOTAL PROTEIN 7.2 GM/DL (6.4-8.2)
[2017-08-14 10:31] LABS: BEDSIDE GLUCOSE 348 MG/DL (80-115)
[2017-08-14] MEDS: PANTOPRAZOLE 40MG INJ (PROTONIX) (C9113) IV (10:59)
[2017-08-14] MEDS: HumaLOG INSULIN (NovoLOG) PER UNIT SC ×4 (11:00→20:51)
[2017-08-14] MEDS: ATORVASTATIN 20 MG TAB PO (11:00)
[2017-08-14] MEDS: ISOSORBIDE MON. (IMDUR) 30 MG XR TAB PO (11:01)
[2017-08-14] MEDS: LEVOTHYROXINE 25MCG TABLET (0.025MG) PO (11:01)
[2017-08-14] MEDS: TICAGRELOR 90 MG TABLET (BRILINTA) PO ×2 (11:01→20:52)
[2017-08-14] MEDS: amLODIPine 10 MG TAB PO (11:01)
[2017-08-14] MEDS: POTASSIUM CHLORIDE 10 MEQ SR TABLET PO ×2 (11:02→20:52)
[2017-08-14] MEDS: FUROSEMIDE 20 MG TAB PO (11:02)
[2017-08-14] MEDS: CARVedilol 6.25 MG TAB PO ×2 (11:03→20:52)
[2017-08-14 12:12] LABS: BEDSIDE GLUCOSE 327 MG/DL (80-115)
[2017-08-14] MEDS ORDERED: SLF 3 ML SYR IV (12:15)
[2017-08-14 17:26] LABS: BEDSIDE GLUCOSE 318 MG/DL (80-115)
[2017-08-14] MEDS: SLF 3 ML SYR IV ×2 (18:05→20:54)
[2017-08-14 20:41] LABS: BEDSIDE GLUCOSE 346 MG/DL (80-115)
[2017-08-14] MEDS: LEVEMIR (INSULIN DETEMIR) 1 UNITS/0.01ML SC (20:51)
[2017-08-15] MEDS: SLF 3 ML SYR IV (05:56)
[2017-08-15 06:17] LABS: HEMOGLOBIN 9.3 g/dl (12.0-15.5); MEAN CORPUSCULAR HEMOGLOBIN 26.9 pg (27.0-33.0); MEAN CORPUSCULAR HGB CONC 33.2 g/dl (32.0-36.5); MEAN CORPUSCULAR VOLUME 80.9 fl (80.0-96.0); PLATELET COUNT, AUTOMATED 162 10^3/uL (150-450); RED BLOOD COUNT 3.46 10^6/uL (4.00-5.40); RED CELL DISTRIBUTION WIDTH 13.6 % (11.5-14.5); WHITE BLOOD COUNT 5.1 10^3/uL (4.0-10.0)
[2017-08-15 06:41] LABS: ALBUMIN 3.1 GM/DL (3.2-5.2); ALBUMIN/GLOBULIN RATIO 0.79 (1.00-1.93); ALKALINE PHOSPHATASE 81 U/L (45-117); ALT/SGPT 29 U/L (12-78); ANION GAP 9 MEQ/L (8-16); AST/SGOT 36 U/L (7-37); BILIRUBIN,TOTAL 0.8 MG/DL (0.2-1.0); BLOOD UREA NITROGEN 15 MG/DL (7-18); CALCIUM LEVEL 8.2 MG/DL (8.8-10.2); CARBON DIOXIDE LEVEL 23 MEQ/L (21-32); CHLORIDE LEVEL 111 MEQ/L (98-107); CREATININE FOR GFR 0.86 MG/DL (0.55-1.30); GLOMERULAR FILTRATION RATE > 60.0 (>45); GLUCOSE, FASTING 216 MG/DL (70-100); POTASSIUM SERUM 3.7 MEQ/L (3.5-5.1); SODIUM LEVEL 143 MEQ/L (136-145)
[2017-08-15] MEDS: TICAGRELOR 90 MG TABLET (BRILINTA) PO (08:30)
[2017-08-15] MEDS: HumaLOG INSULIN (NovoLOG) PER UNIT SC (08:30)
[2017-08-15] MEDS: PANTOPRAZOLE 40MG INJ (PROTONIX) (C9113) IV (08:30)
[2017-08-15] MEDS: SUCRALFATE 1 GM TAB PO (08:30)
[2017-08-15] MEDS: VALSARTAN 80 MG TAB (DIOVAN) PO (08:31)
[2017-08-15] MEDS: LEVOTHYROXINE 25MCG TABLET (0.025MG) PO (08:31)
[2017-08-15] MEDS: POTASSIUM CHLORIDE 10 MEQ SR TABLET PO (08:31)
[2017-08-15] MEDS: FUROSEMIDE 20 MG TAB PO (08:32)
[2017-08-15] MEDS: ATORVASTATIN 20 MG TAB PO (08:33)
[2017-08-15] MEDS: CARVedilol 6.25 MG TAB PO (08:33)
[2017-08-15] MEDS: ISOSORBIDE MON. (IMDUR) 30 MG XR TAB PO (08:34)
[2017-08-15] MEDS: amLODIPine 10 MG TAB PO (08:34)
[2017-08-15] MEDS: NORCO, ANEXSIA 5/325MG TABLET (HYDROcodone/ACETAMINOPHEN) PO (11:03)
== END 2017-08-15 11:56 | disposition home or self-care (01) | DRG 378 ==
LOC: M ED 15:52 → M PCU 08-13 15:17 → M ED INP 21:24
PROC: 30233N1 Transfusion of Nonautologous Red Blood Cells into Peripheral Vein, Percutaneous Approach (ICD-10-PCS; principal; 2017-08-12)
DX: K92.1 Melena (principal); K76.6 Portal hypertension; I50.32 Chronic diastolic (congestive) heart failure; D62 Acute posthemorrhagic anemia; I11.0 Hypertensive heart disease with heart failure; M51.34 Other intervertebral disc degeneration, thoracic region; M25.78 Osteophyte, vertebrae; K76.0 Fatty (change of) liver, not elsewhere classified; K31.89 Other diseases of stomach and duodenum; E11.9 Type 2 diabetes mellitus without complications; K74.60 Unspecified cirrhosis of liver; M51.36 Other intervertebral disc degeneration, lumbar region; E78.5 Hyperlipidemia, unspecified; I25.10 Atherosclerotic heart disease of native coronary artery without angina pectoris; I25.2 Old myocardial infarction; Z95.5 Presence of coronary angioplasty implant and graft; Z79.82 Long term (current) use of aspirin; Z79.4 Long term (current) use of insulin; Z79.899 Other long term (current) drug therapy; Z88.8 Allergy status to other drugs, medicaments and biological substances

== ENCOUNTER → 2017-08-12 | Outpatient (REF) | payer OTHER, MEDICARE ==
[2017-08-12 11:32] LABS: BASO # 0.1 10^3/uL (0.0-0.2); EOS # 0.3 10^3/uL (0.0-0.50); HEMATOCRIT 23.7 % (36.0-47.0); HEMOGLOBIN 7.6 g/dl (12.0-15.5); IMMATURE GRANULOCYTE % 0.2 % (0-3.0); LYMPH # 2.6 10^3/uL (1.5-4.5); LYMPH % 45.1 % (24.0-44.0); MEAN CORPUSCULAR HEMOGLOBIN 26.5 pg (27.0-33.0); MEAN CORPUSCULAR HGB CONC 32.1 g/dl (32.0-36.5); MEAN CORPUSCULAR VOLUME 82.6 fl (80.0-96.0); MONO # 0.7 10^3/uL (0.0-0.8); MONO % 12.7 % (0.0-5.0); NEUTROPHILS # 2.1 10^3/uL (1.8-7.7); PLATELET COUNT, AUTOMATED 146 10^3/uL (150-450); RED BLOOD COUNT 2.87 10^6/uL (4.00-5.40); RED CELL DISTRIBUTION WIDTH 14.4 % (11.5-14.5); RETIC HEMOGLOBIN EQUIVALENT 26.2 pg (24-36); RETICULOCYTE # 56.3 10^9/L (17-77); WHITE BLOOD COUNT 5.8 10^3/uL (4.0-10.0)
[2017-08-12 12:12] LABS: VITAMIN B12 LEVEL 871 PG/ML (247-911)
[2017-08-12 12:21] LABS: HEPATITIS B SURFACE ANTIGEN NEGATIVE (NEGATIVE)
[2017-08-12 12:45] LABS: ALBUMIN 3.2 GM/DL (3.2-5.2); ALBUMIN/GLOBULIN RATIO 0.82 (1.00-1.93); ALKALINE PHOSPHATASE 97 U/L (45-117); ALT/SGPT 34 U/L (12-78); ANION GAP 13 MEQ/L (8-16); AST/SGOT 31 U/L (7-37); BILIRUBIN,TOTAL 0.5 MG/DL (0.2-1.0); BLOOD UREA NITROGEN 29 MG/DL (7-18); CALCIUM LEVEL 9.1 MG/DL (8.8-10.2); CARBON DIOXIDE LEVEL 21 MEQ/L (21-32); CHLORIDE LEVEL 110 MEQ/L (98-107); CREATININE FOR GFR 0.99 MG/DL (0.55-1.30); GLOMERULAR FILTRATION RATE 59.9 (>45); GLUCOSE, FASTING 191 MG/DL (70-100); POTASSIUM SERUM 4.2 MEQ/L (3.5-5.1); SODIUM LEVEL 144 MEQ/L (136-145); TOTAL PROTEIN 7.1 GM/DL (6.4-8.2)
[2017-08-12 12:50] LABS: HEPATITIS C VIRUS ABY INDEX 0.1 INDEX (<0.8)
[2017-08-13 10:18] LABS: H PYLORI SERUM QUANT IgG ABY 0.24 (0.00-0.79)
== END ==
LOC: M SFHCPLAZ 09:20
DX: K92.2 Gastrointestinal hemorrhage, unspecified (principal); I10 Essential (primary) hypertension; K76.6 Portal hypertension
CPT/HCPCS: 82607

== ENCOUNTER → 2017-08-12 | Outpatient (CLI) | payer OTHER, MEDICARE | LOC: M RAD 10:44 | DX: M51.34 Other intervertebral disc degeneration, thoracic region (principal); M25.78 Osteophyte, vertebrae; R10.31 Right lower quadrant pain | CPT/HCPCS: 72072 ==

== ENCOUNTER → 2017-08-19 | Outpatient (REF) | payer OTHER, MEDICARE ==
[2017-08-19 13:50] LABS: HEMATOCRIT 27.8 % (36.0-47.0); MEAN CORPUSCULAR HEMOGLOBIN 26.4 pg (27.0-33.0); MEAN CORPUSCULAR HGB CONC 32.4 g/dl (32.0-36.5); MEAN CORPUSCULAR VOLUME 81.5 fl (80.0-96.0); PLATELET COUNT, AUTOMATED 187 10^3/uL (150-450); RED BLOOD COUNT 3.41 10^6/uL (4.00-5.40); RED CELL DISTRIBUTION WIDTH 13.9 % (11.5-14.5); WHITE BLOOD COUNT 5.3 10^3/uL (4.0-10.0)
== END ==
LOC: M SFHCPLAZ 08:35
DX: D50.0 Iron deficiency anemia secondary to blood loss (chronic) (principal)
CPT/HCPCS: 85027

== ENCOUNTER → 2017-08-27 | Outpatient (CLI) | payer OTHER, MEDICARE ==
[2017-08-27 16:41] LABS: HEMATOCRIT 30.4 % (36.0-47.0); HEMOGLOBIN 9.6 g/dl (12.0-15.5); MEAN CORPUSCULAR HEMOGLOBIN 25.8 pg (27.0-33.0); MEAN CORPUSCULAR HGB CONC 31.6 g/dl (32.0-36.5); MEAN CORPUSCULAR VOLUME 81.7 fl (80.0-96.0); PLATELET COUNT, AUTOMATED 220 10^3/uL (150-450); RED BLOOD COUNT 3.72 10^6/uL (4.00-5.40); RED CELL DISTRIBUTION WIDTH 13.7 % (11.5-14.5)
[2017-08-27 16:47] LABS: ANION GAP 13 MEQ/L (8-16); BLOOD UREA NITROGEN 17 MG/DL (7-18); CALCIUM LEVEL 8.9 MG/DL (8.8-10.2); CARBON DIOXIDE LEVEL 22 MEQ/L (21-32); CHLORIDE LEVEL 112 MEQ/L (98-107); CREATININE FOR GFR 0.97 MG/DL (0.55-1.30); GLOMERULAR FILTRATION RATE > 60.0 (>45); GLUCOSE, FASTING 115 MG/DL (70-100); NT-PRO BNP 263 PG/ML (<125); POTASSIUM SERUM 4.4 MEQ/L (3.5-5.1); SODIUM LEVEL 147 MEQ/L (136-145)
== END ==
LOC: M SMT 12:12
DX: R06.09 Other forms of dyspnea (principal); D50.0 Iron deficiency anemia secondary to blood loss (chronic); I11.9 Hypertensive heart disease without heart failure
CPT/HCPCS: 80048

== ENCOUNTER 2017-09-17 10:43 | Inpatient (IN) | payer OTHER, MEDICARE ==
[2017-09-17] MEDS ORDERED: ONDANSETRON 4MG/2ML VIAL (J2405) IV ×2 (11:30→19:30)
[2017-09-17] MEDS: NS 1,000 ML IV ×2 (13:14→16:25)
[2017-09-17 13:22] LABS: BASO % 0.6 % (0.0-1.0); EOS # 0.3 10^3/uL (0.0-0.50); EOS % 5.7 % (0.0-3.0); HEMATOCRIT 23.2 % (36.0-47.0); HEMOGLOBIN 7.1 g/dl (12.0-15.5); IMMATURE GRANULOCYTE % 0.4 % (0-3.0); LYMPH # 1.9 10^3/uL (1.5-4.5); LYMPH % 34.8 % (24.0-44.0); MEAN CORPUSCULAR HEMOGLOBIN 23.9 pg (27.0-33.0); MEAN CORPUSCULAR HGB CONC 30.6 g/dl (32.0-36.5); MEAN CORPUSCULAR VOLUME 78.1 fl (80.0-96.0); MONO # 0.6 10^3/uL (0.0-0.8); MONO % 11.8 % (0.0-5.0); NEUTROPHILS # 2.5 10^3/uL (1.8-7.7); NEUTROPHILS % 46.7 % (36.0-66.0); PLATELET COUNT, AUTOMATED 197 10^3/uL (150-450); RED BLOOD COUNT 2.97 10^6/uL (4.00-5.40); RED CELL DISTRIBUTION WIDTH 14.3 % (11.5-14.5); WHITE BLOOD COUNT 5.4 10^3/uL (4.0-10.0)
[2017-09-17 13:30] LABS: PROTHROMBIN TIME 14.4 SECONDS (12.1-14.4)
[2017-09-17] MEDS: PANTOPRAZOLE SODIUM 40 MG in D5W 50 ML IV ×3 (13:46→23:25)
[2017-09-17 13:47] LABS: ALBUMIN 3.2 GM/DL (3.2-5.2); ALBUMIN/GLOBULIN RATIO 0.91 (1.00-1.93); ALT/SGPT 24 U/L (12-78); AST/SGOT 26 U/L (7-37); BILIRUBIN,DIRECT 0.2 MG/DL (0.0-0.2); BILIRUBIN,TOTAL 0.8 MG/DL (0.2-1.0); CPK CREATINE PHOSPHOKINASE 60 U/L (26-192); TOTAL PROTEIN 6.7 GM/DL (6.4-8.2); TROPONIN I 0.09 NG/ML (< 0.10)
[2017-09-17 13:48] LABS: ALKALINE PHOSPHATASE 83 U/L (45-117); CK-MB VALUE MASS < 1.0 NG/ML (<3.6); MB/CK RELATIVE INDEX 1.66 (< OR =4)
[2017-09-17 13:57] LABS: LACTIC ACID SEPSIS PROTOCOL 5.5 MMOL/L (0.4-2.0)
[2017-09-17 14:02] LABS: ANION GAP 13 MEQ/L (8-16); BLOOD UREA NITROGEN 26 MG/DL (7-18); CALCIUM LEVEL 8.6 MG/DL (8.8-10.2); CARBON DIOXIDE LEVEL 21 MEQ/L (21-32); CHLORIDE LEVEL 110 MEQ/L (98-107); CREATININE FOR GFR 1.16 MG/DL (0.55-1.30); GLOMERULAR FILTRATION RATE 49.9 (>45); GLUCOSE, FASTING 210 MG/DL (70-100); LIPASE 160 U/L (73-393); POTASSIUM SERUM 4.1 MEQ/L (3.5-5.1); SODIUM LEVEL 144 MEQ/L (136-145)
[2017-09-17] MEDS ORDERED: GLUCOSE 4 GM CHEW TABLET PO (16:30)
[2017-09-17] MEDS ORDERED: GLUCAGON FOR INJ 1 MG VIAL (J1610) SC (16:30)
[2017-09-17] MEDS ORDERED: DEXTROSE 50% 50 ML SYRINGE IV (16:30)
[2017-09-17 17:53] LABS: IMMEDIATE SPIN CROSSMATCH 1 2
[2017-09-17] MEDS ORDERED: HumaLOG INSULIN (NovoLOG) PER UNIT SC (18:00)
[2017-09-17] MEDS: SENOKOT S TAB PO (21:00)
[2017-09-17] MEDS: SUCRALFATE 1 GM TAB PO (21:00)
[2017-09-17] MEDS: HumaLOG INSULIN (NovoLOG) PER UNIT SC (21:00)
[2017-09-17 22:11] LABS: HEMATOCRIT 30.8 % (36.0-47.0); HEMOGLOBIN 9.9 g/dl (12.0-15.5)
[2017-09-17 22:34] LABS: CK-MB VALUE MASS 1.1 NG/ML (<3.6); CPK CREATINE PHOSPHOKINASE 68 U/L (26-192); MB/CK RELATIVE INDEX 1.61 (< OR =4); TROPONIN I 0.09 NG/ML (< 0.10)
[2017-09-17] MEDS: CLOPIDOGREL 75 MG TAB PO (23:09)
[2017-09-17] MEDS: CARVedilol 12.5 MG TAB PO (23:09)
[2017-09-17] MEDS: LEVEMIR (INSULIN DETEMIR) 1 UNITS/0.01ML SC (23:10)
[2017-09-17 23:14] LABS: BEDSIDE GLUCOSE 99 MG/DL (80-115)
[2017-09-18] MEDS: tiZANidine 4 MG TAB PO ×2 (01:52→20:30)
[2017-09-18 04:58] LABS: HEMATOCRIT 28.9 % (36.0-47.0); HEMOGLOBIN 9.4 g/dl (12.0-15.5); MEAN CORPUSCULAR HEMOGLOBIN 25.5 pg (27.0-33.0); MEAN CORPUSCULAR HGB CONC 32.5 g/dl (32.0-36.5); MEAN CORPUSCULAR VOLUME 78.3 fl (80.0-96.0); PLATELET COUNT, AUTOMATED 205 10^3/uL (150-450); RED BLOOD COUNT 3.69 10^6/uL (4.00-5.40); RED CELL DISTRIBUTION WIDTH 14.2 % (11.5-14.5); WHITE BLOOD COUNT 6.1 10^3/uL (4.0-10.0)
[2017-09-18] MEDS: NS 1,000 ML IV (05:05)
[2017-09-18] MEDS: LEVOTHYROXINE 25MCG TABLET (0.025MG) PO (05:05)
[2017-09-18] MEDS: PANTOPRAZOLE SODIUM 40 MG in D5W 50 ML IV ×2 (05:05→10:32)
[2017-09-18 05:22] LABS: ANION GAP 6 MEQ/L (8-16); BLOOD UREA NITROGEN 18 MG/DL (7-18); CALCIUM LEVEL 8.3 MG/DL (8.8-10.2); CARBON DIOXIDE LEVEL 26 MEQ/L (21-32); CHLORIDE LEVEL 113 MEQ/L (98-107); CK-MB VALUE MASS < 1.0 NG/ML (<3.6); CPK CREATINE PHOSPHOKINASE 59 U/L (26-192); CREATININE FOR GFR 0.91 MG/DL (0.55-1.30); GLOMERULAR FILTRATION RATE > 60.0 (>45); GLUCOSE, FASTING 129 MG/DL (70-100); MAGNESIUM LEVEL 1.7 MG/DL (1.8-2.4); MB/CK RELATIVE INDEX 1.69 (< OR =4); POTASSIUM SERUM 3.8 MEQ/L (3.5-5.1); SODIUM LEVEL 145 MEQ/L (136-145)
[2017-09-18] MEDS: HumaLOG INSULIN (NovoLOG) PER UNIT SC ×4 (08:18→20:32)
[2017-09-18] MEDS: LEVEMIR (INSULIN DETEMIR) 1 UNITS/0.01ML SC ×2 (08:19→20:31)
[2017-09-18] MEDS: CARVedilol 12.5 MG TAB PO ×2 (09:00→20:31)
[2017-09-18] MEDS: amLODIPine 10 MG TAB PO (09:00)
[2017-09-18] MEDS: SUCRALFATE 1 GM TAB PO ×4 (09:08→20:30)
[2017-09-18] MEDS: SENOKOT S TAB PO ×2 (09:08→20:30)
[2017-09-18] MEDS: ATORVASTATIN 20 MG TAB PO (09:09)
[2017-09-18] MEDS: MAG SULF 1GM/100ML (MAG RUN) 1 GM in APPROPRIATE DILUENT 1 EA IV (09:10)
[2017-09-18 11:53] LABS: BEDSIDE GLUCOSE 162 MG/DL (80-115)
[2017-09-18] MEDS: oxyCODONE 5MG TAB PO ×2 (13:15→19:12)
[2017-09-18 16:29] LABS: BEDSIDE GLUCOSE 167 MG/DL (80-115)
[2017-09-18 16:31] LABS: HEMATOCRIT 31.8 % (36.0-47.0); HEMOGLOBIN 10.1 g/dl (12.0-15.5)
[2017-09-18] MEDS: PANTOPRAZOLE 40MG INJ (PROTONIX) (C9113) IV (20:30)
[2017-09-18 21:03] LABS: BEDSIDE GLUCOSE 169 MG/DL (80-115)
[2017-09-19 06:00] LABS: HEMATOCRIT 29.1 % (36.0-47.0); MEAN CORPUSCULAR HEMOGLOBIN 24.5 pg (27.0-33.0); MEAN CORPUSCULAR HGB CONC 30.9 g/dl (32.0-36.5); MEAN CORPUSCULAR VOLUME 79.3 fl (80.0-96.0); PLATELET COUNT, AUTOMATED 178 10^3/uL (150-450); RED BLOOD COUNT 3.67 10^6/uL (4.00-5.40); RED CELL DISTRIBUTION WIDTH 14.6 % (11.5-14.5); WHITE BLOOD COUNT 5.6 10^3/uL (4.0-10.0)
[2017-09-19 06:19] LABS: ANION GAP 8 MEQ/L (8-16); BLOOD UREA NITROGEN 11 MG/DL (7-18); CALCIUM LEVEL 8.1 MG/DL (8.8-10.2); CARBON DIOXIDE LEVEL 24 MEQ/L (21-32); CHLORIDE LEVEL 113 MEQ/L (98-107); CREATININE FOR GFR 0.83 MG/DL (0.55-1.30); GLOMERULAR FILTRATION RATE > 60.0 (>45); GLUCOSE, FASTING 121 MG/DL (70-100); MAGNESIUM LEVEL 1.7 MG/DL (1.8-2.4); POTASSIUM SERUM 3.7 MEQ/L (3.5-5.1); SODIUM LEVEL 145 MEQ/L (136-145)
[2017-09-19] MEDS: SUCRALFATE 1 GM TAB PO ×4 (06:35→20:56)
[2017-09-19] MEDS: LEVOTHYROXINE 25MCG TABLET (0.025MG) PO (06:35)
[2017-09-19] MEDS: MAG SULF 1GM/100ML (MAG RUN) 1 GM in APPROPRIATE DILUENT 1 EA IV ×2 (06:59→08:49)
[2017-09-19] MEDS: FUROSEMIDE 40 MG/4 ML VIAL (J1940) IV (06:59)
[2017-09-19] MEDS: POTASSIUM CHLORIDE 10 MEQ SR TABLET PO (06:59)
[2017-09-19] MEDS: oxyCODONE 5MG TAB PO ×2 (07:41→14:28)
[2017-09-19] MEDS: ATORVASTATIN 20 MG TAB PO (08:48)
[2017-09-19] MEDS: amLODIPine 5 MG TAB PO (08:48)
[2017-09-19] MEDS: SENOKOT S TAB PO ×2 (08:49→20:55)
[2017-09-19] MEDS: LEVEMIR (INSULIN DETEMIR) 1 UNITS/0.01ML SC ×2 (08:50→20:56)
[2017-09-19] MEDS: CARVedilol 12.5 MG TAB PO ×2 (08:51→20:56)
[2017-09-19] MEDS: PANTOPRAZOLE 40MG INJ (PROTONIX) (C9113) IV ×2 (08:51→20:55)
[2017-09-19] MEDS: HumaLOG INSULIN (NovoLOG) PER UNIT SC ×4 (08:51→20:57)
[2017-09-19] MEDS: TICAGRELOR 90 MG TABLET (BRILINTA) PO ×2 (09:38→20:55)
[2017-09-19 11:46] LABS: BEDSIDE GLUCOSE 185 MG/DL (80-115)
[2017-09-19 15:24] LABS: IMMEDIATE SPIN CROSSMATCH 1 2
[2017-09-19 17:14] LABS: BEDSIDE GLUCOSE 139 MG/DL (80-115)
[2017-09-19 17:41] LABS: IMMEDIATE SPIN CROSSMATCH 1 1
[2017-09-19] MEDS: SODIUM CHLORIDE 0.9% INJ 10 ML SYR IV (18:45)
[2017-09-19 20:44] LABS: BEDSIDE GLUCOSE 230 MG/DL (80-115)
[2017-09-19] MEDS: tiZANidine 4 MG TAB PO (20:56)
[2017-09-19 21:25] LABS: HEMATOCRIT 35.8 % (36.0-47.0); HEMOGLOBIN 11.7 g/dl (12.0-15.5)
[2017-09-20] MEDS: LEVOTHYROXINE 25MCG TABLET (0.025MG) PO (05:37)
[2017-09-20] MEDS: SODIUM CHLORIDE 0.9% INJ 10 ML SYR IV ×4 (05:37→18:26)
[2017-09-20 05:51] LABS: HEMATOCRIT 33.7 % (36.0-47.0); HEMOGLOBIN 10.9 g/dl (12.0-15.5); MEAN CORPUSCULAR HEMOGLOBIN 26.1 pg (27.0-33.0); MEAN CORPUSCULAR HGB CONC 32.3 g/dl (32.0-36.5); MEAN CORPUSCULAR VOLUME 80.6 fl (80.0-96.0); PLATELET COUNT, AUTOMATED 182 10^3/uL (150-450); RED BLOOD COUNT 4.18 10^6/uL (4.00-5.40); RED CELL DISTRIBUTION WIDTH 14.9 % (11.5-14.5); WHITE BLOOD COUNT 7.4 10^3/uL (4.0-10.0)
[2017-09-20 06:14] LABS: ANION GAP 8 MEQ/L (8-16); BLOOD UREA NITROGEN 11 MG/DL (7-18); CARBON DIOXIDE LEVEL 25 MEQ/L (21-32); CHLORIDE LEVEL 111 MEQ/L (98-107); CREATININE FOR GFR 0.79 MG/DL (0.55-1.30); GLOMERULAR FILTRATION RATE > 60.0 (>45); GLUCOSE, FASTING 160 MG/DL (70-100); IRON (FE) 62 UG/DL (50-170); MAGNESIUM LEVEL 1.6 MG/DL (1.8-2.4); PERCENT SATURATION 15.2 % (13.2-45.0); POTASSIUM SERUM 3.6 MEQ/L (3.5-5.1); SODIUM LEVEL 144 MEQ/L (136-145); TOTAL IRON BINDING CAPACITY 408 UG/DL (250-450)
[2017-09-20] MEDS: SUCRALFATE 1 GM TAB PO ×4 (06:34→21:31)
[2017-09-20] MEDS: LEVEMIR (INSULIN DETEMIR) 1 UNITS/0.01ML SC ×2 (08:43→21:35)
[2017-09-20] MEDS: POTASSIUM CHLORIDE 10 MEQ SR TABLET PO (08:43)
[2017-09-20] MEDS: HumaLOG INSULIN (NovoLOG) PER UNIT SC ×4 (08:43→21:34)
[2017-09-20] MEDS: PANTOPRAZOLE 40MG INJ (PROTONIX) (C9113) IV ×2 (08:43→21:31)
[2017-09-20] MEDS: TICAGRELOR 90 MG TABLET (BRILINTA) PO ×2 (08:44→21:31)
[2017-09-20] MEDS: LISINOPRIL 5 MG TAB PO (08:44)
[2017-09-20] MEDS: SENOKOT S TAB PO ×2 (08:45→21:31)
[2017-09-20] MEDS: CARVedilol 12.5 MG TAB PO ×2 (08:45→21:34)
[2017-09-20] MEDS: ATORVASTATIN 20 MG TAB PO (08:45)
[2017-09-20] MEDS: amLODIPine 5 MG TAB PO (08:46)
[2017-09-20] MEDS: MAG SULF 1GM/100ML (MAG RUN) 1 GM in APPROPRIATE DILUENT 1 EA IV ×2 (08:46→10:25)
[2017-09-20 11:40] LABS: BEDSIDE GLUCOSE 251 MG/DL (80-115)
[2017-09-20] MEDS: FERROUS SULFATE 325MG TAB PO (11:54)
[2017-09-20] MEDS: oxyCODONE 5MG TAB PO ×2 (11:55→21:40)
[2017-09-20 16:48] LABS: BEDSIDE GLUCOSE 217 MG/DL (80-115)
[2017-09-20 18:35] LABS: HEMATOCRIT 34.6 % (36.0-47.0); HEMOGLOBIN 11.2 g/dl (12.0-15.5)
[2017-09-20 20:40] LABS: BEDSIDE GLUCOSE 270 MG/DL (80-115)
[2017-09-20] MEDS: tiZANidine 4 MG TAB PO (21:35)
[2017-09-21] MEDS: LEVOTHYROXINE 25MCG TABLET (0.025MG) PO (05:26)
[2017-09-21] MEDS: SODIUM CHLORIDE 0.9% INJ 10 ML SYR IV (05:27)
[2017-09-21 05:46] LABS: HEMATOCRIT 32.3 % (36.0-47.0); HEMOGLOBIN 10.3 g/dl (12.0-15.5); MEAN CORPUSCULAR HEMOGLOBIN 25.9 pg (27.0-33.0); MEAN CORPUSCULAR HGB CONC 31.9 g/dl (32.0-36.5); MEAN CORPUSCULAR VOLUME 81.4 fl (80.0-96.0); PLATELET COUNT, AUTOMATED 169 10^3/uL (150-450); RED BLOOD COUNT 3.97 10^6/uL (4.00-5.40)
[2017-09-21] MEDS: oxyCODONE 5MG TAB PO (05:58)
[2017-09-21 06:08] LABS: ANION GAP 8 MEQ/L (8-16); BLOOD UREA NITROGEN 13 MG/DL (7-18); CARBON DIOXIDE LEVEL 24 MEQ/L (21-32); CHLORIDE LEVEL 111 MEQ/L (98-107); CREATININE FOR GFR 0.78 MG/DL (0.55-1.30); GLOMERULAR FILTRATION RATE > 60.0 (>45); GLUCOSE, FASTING 180 MG/DL (70-100); POTASSIUM SERUM 3.8 MEQ/L (3.5-5.1); SODIUM LEVEL 143 MEQ/L (136-145)
[2017-09-21] MEDS: HumaLOG INSULIN (NovoLOG) PER UNIT SC (07:30)
[2017-09-21] MEDS: CARVedilol 12.5 MG TAB PO (09:00)
[2017-09-21] MEDS: LISINOPRIL 5 MG TAB PO (09:37)
[2017-09-21] MEDS: FERROUS SULFATE 325MG TAB PO (09:37)
[2017-09-21] MEDS: SENOKOT S TAB PO (09:38)
[2017-09-21] MEDS: amLODIPine 5 MG TAB PO (09:38)
[2017-09-21] MEDS: SUCRALFATE 1 GM TAB PO (09:38)
[2017-09-21] MEDS: ATORVASTATIN 20 MG TAB PO (09:38)
[2017-09-21] MEDS: PANTOPRAZOLE 40MG INJ (PROTONIX) (C9113) IV (09:38)
[2017-09-21] MEDS: TICAGRELOR 90 MG TABLET (BRILINTA) PO (09:38)
[2017-09-21] MEDS: LEVEMIR (INSULIN DETEMIR) 1 UNITS/0.01ML SC (09:39)
[2017-09-21 11:46] LABS: BEDSIDE GLUCOSE 256 MG/DL (80-115)
== END 2017-09-21 12:30 | disposition home or self-care (01) | DRG 378 ==
LOC: M MS5PR 09-21 01:12 → M ED 10:43 → M ED INP 19:30 → M PCU 22:13
PROC: 30233N1 Transfusion of Nonautologous Red Blood Cells into Peripheral Vein, Percutaneous Approach (ICD-10-PCS; 2017-09-17)
PROC: 02HV33Z Insertion of Infusion Device into Superior Vena Cava, Percutaneous Approach (ICD-10-PCS; principal; 2017-09-19)
DX: K92.2 Gastrointestinal hemorrhage, unspecified (principal); I50.32 Chronic diastolic (congestive) heart failure; D62 Acute posthemorrhagic anemia; I47.2 Ventricular tachycardia; I25.10 Atherosclerotic heart disease of native coronary artery without angina pectoris; E11.9 Type 2 diabetes mellitus without complications; I11.0 Hypertensive heart disease with heart failure; K74.60 Unspecified cirrhosis of liver; I25.2 Old myocardial infarction; E78.5 Hyperlipidemia, unspecified; M79.7 Fibromyalgia; R60.0 Localized edema; G89.29 Other chronic pain; E03.9 Hypothyroidism, unspecified; Z95.5 Presence of coronary angioplasty implant and graft; Z79.4 Long term (current) use of insulin; Z79.899 Other long term (current) drug therapy; Z88.1 Allergy status to other antibiotic agents; Z88.8 Allergy status to other drugs, medicaments and biological substances; Z87.891 Personal history of nicotine dependence

== ENCOUNTER → 2017-09-23 | Outpatient (CLI) | payer OTHER ==
[2017-09-23 12:19] LABS: HEMATOCRIT 35.6 % (36.0-47.0); HEMOGLOBIN 11.4 g/dl (12.0-15.5)
== END ==
LOC: M WUC 09:29
DX: D64.89 Other specified anemias (principal)
CPT/HCPCS: 85014

== ENCOUNTER → 2017-09-30 | Outpatient (CLI) | payer OTHER, MEDICARE ==
[2017-09-30 12:42] LABS: HEMATOCRIT 34.8 % (36.0-47.0); HEMOGLOBIN 11.3 g/dl (12.0-15.5)
== END ==
LOC: M WUC 09:23
DX: D62 Acute posthemorrhagic anemia (principal)
CPT/HCPCS: 85014

== ENCOUNTER → 2017-10-07 | Outpatient (CLI) | payer OTHER, MEDICARE ==
[2017-10-07 12:19] LABS: HEMATOCRIT 32.2 % (36.0-47.0); HEMOGLOBIN 10.4 g/dl (12.0-15.5)
== END ==
LOC: M WUC 09:16
DX: D62 Acute posthemorrhagic anemia (principal)
CPT/HCPCS: 85014

== ENCOUNTER → 2017-10-11 | Outpatient (REF) | payer OTHER, MEDICARE ==
[2017-10-11 13:07] LABS: HEMATOCRIT 34.5 % (36.0-47.0); HEMOGLOBIN 10.9 g/dl (12.0-15.5)
== END ==
LOC: M SFHCPLAZ 11:21
DX: D50.0 Iron deficiency anemia secondary to blood loss (chronic) (principal)
CPT/HCPCS: 85014

== ENCOUNTER → 2017-10-11 | Outpatient (CLI) | payer OTHER, MEDICARE | LOC: M LAB 12:15 | DX: M17.12 Unilateral primary osteoarthritis, left knee (principal); M16.12 Unilateral primary osteoarthritis, left hip; M79.652 Pain in left thigh | CPT/HCPCS: 73552 ==

== ENCOUNTER → 2017-10-16 | Outpatient (CLI) | payer OTHER ==
[2017-10-16 17:07] LABS: HEMATOCRIT 32.1 % (36.0-47.0); HEMOGLOBIN 10.2 g/dl (12.0-15.5)
== END ==
LOC: M WUC 13:04
DX: D62 Acute posthemorrhagic anemia (principal)
CPT/HCPCS: 85014

== ENCOUNTER → 2017-10-29 | Outpatient (CLI) | payer OTHER ==
[2017-10-29 09:43] LABS: HEMATOCRIT 28.7 % (36.0-47.0); HEMOGLOBIN 9.1 g/dl (12.0-15.5)
== END ==
LOC: M WUC 08:30
DX: D50.0 Iron deficiency anemia secondary to blood loss (chronic) (principal)
CPT/HCPCS: 85014

== ENCOUNTER → 2017-10-30 | Outpatient (CLI) | payer OTHER ==
[2017-10-30 10:09] LABS: HEMATOCRIT 28.8 % (36.0-47.0); HEMOGLOBIN 9.1 g/dl (12.0-15.5)
== END ==
LOC: M WUC 08:47
DX: D50.0 Iron deficiency anemia secondary to blood loss (chronic) (principal)
CPT/HCPCS: 85014

== ENCOUNTER → 2017-11-01 | Outpatient (CLI) | payer OTHER ==
[2017-11-01 12:40] LABS: HEMATOCRIT 31.7 % (36.0-47.0); HEMOGLOBIN 9.6 g/dl (12.0-15.5)
== END ==
LOC: M WUC 10:09
DX: D50.0 Iron deficiency anemia secondary to blood loss (chronic) (principal)
CPT/HCPCS: 85014

== ENCOUNTER → 2017-11-08 | Outpatient (CLI) | payer OTHER ==
[2017-11-08 13:17] LABS: HEMATOCRIT 28.7 % (36.0-47.0); HEMOGLOBIN 8.8 g/dl (12.0-15.5)
== END ==
LOC: M WUC 09:11
DX: D50.0 Iron deficiency anemia secondary to blood loss (chronic) (principal)
CPT/HCPCS: 85014

== ENCOUNTER → 2017-11-11 | Outpatient (CLI) | payer OTHER, MEDICARE ==
[2017-11-11 13:10] LABS: HEMATOCRIT 29.6 % (36.0-47.0); HEMOGLOBIN 9.3 g/dl (12.0-15.5)
== END ==
LOC: M WUC 09:10
DX: D50.0 Iron deficiency anemia secondary to blood loss (chronic) (principal)
CPT/HCPCS: 85014

== ENCOUNTER → 2017-11-14 | Outpatient (REF) | payer OTHER, MEDICARE ==
[2017-11-14 14:02] LABS: HEMATOCRIT 33.1 % (36.0-47.0); HEMOGLOBIN 10.3 g/dl (12.0-15.5)
== END ==
LOC: M SFHCPLAZ 11:00
DX: D50.0 Iron deficiency anemia secondary to blood loss (chronic) (principal)
CPT/HCPCS: 85014

== ENCOUNTER → 2017-11-18 | Outpatient (CLI) | payer OTHER, MEDICARE ==
[2017-11-18 14:10] LABS: HEMATOCRIT 34.2 % (36.0-47.0); HEMOGLOBIN 10.4 g/dl (12.0-15.5)
== END ==
LOC: M WUC 10:20
DX: D50.0 Iron deficiency anemia secondary to blood loss (chronic) (principal)
CPT/HCPCS: 85014

== ENCOUNTER → 2017-11-21 | Outpatient (CLI) | payer OTHER, MEDICARE ==
[2017-11-21 13:54] LABS: HEMATOCRIT 32.8 % (36.0-47.0)
== END ==
LOC: M WUC 08:21
DX: D50.0 Iron deficiency anemia secondary to blood loss (chronic) (principal)
CPT/HCPCS: 85014

== ENCOUNTER → 2017-11-25 | Outpatient (CLI) | payer OTHER, MEDICARE ==
[2017-11-25 13:45] LABS: HEMOGLOBIN 11.3 g/dl (12.0-15.5)
== END ==
LOC: M WUC 09:01
DX: D50.0 Iron deficiency anemia secondary to blood loss (chronic) (principal)
CPT/HCPCS: 85014

== ENCOUNTER → 2017-11-26 | Outpatient (REF) | payer OTHER, MEDICARE ==
[2017-11-26 16:05] LABS: HEMATOCRIT 36.2 % (36.0-47.0); HEMOGLOBIN 11.1 g/dl (12.0-15.5)
[2017-11-26 16:25] LABS: ANION GAP 13 MEQ/L (8-16); BLOOD UREA NITROGEN 22 MG/DL (7-18); CALCIUM LEVEL 9.2 MG/DL (8.8-10.2); CARBON DIOXIDE LEVEL 21 MEQ/L (21-32); CHLORIDE LEVEL 108 MEQ/L (98-107); CREATININE FOR GFR 1.04 MG/DL (0.55-1.30); FERRITIN 26 NG/ML (8-252); FREE T4 1.33 NG/DL (0.76-1.46); GLOMERULAR FILTRATION RATE 56.6 (>45); GLUCOSE, FASTING 206 MG/DL (70-100); IRON (FE) 122 UG/DL (50-170); PERCENT SATURATION 27.6 % (13.2-45.0); POTASSIUM SERUM 4.9 MEQ/L (3.5-5.1); SODIUM LEVEL 142 MEQ/L (136-145); TOTAL IRON BINDING CAPACITY 442 UG/DL (250-450)
== END ==
LOC: M SFHCPLAZ 13:28
DX: D50.0 Iron deficiency anemia secondary to blood loss (chronic) (principal); R40.0 Somnolence; I95.9 Hypotension, unspecified
CPT/HCPCS: 83550

== ENCOUNTER → 2017-11-28 | Outpatient (CLI) | payer OTHER, MEDICARE ==
[2017-11-28 19:00] LABS: HEMATOCRIT 34.4 % (36.0-47.0); HEMOGLOBIN 10.4 g/dl (12.0-15.5)
== END ==
LOC: M WUC 11:05
DX: D50.0 Iron deficiency anemia secondary to blood loss (chronic) (principal)
CPT/HCPCS: 85014

== ENCOUNTER → 2017-12-11 | Outpatient (CLI) | payer OTHER, MEDICARE ==
[2017-12-11 17:37] LABS: HEMATOCRIT 36.5 % (36.0-47.0); HEMOGLOBIN 11.4 g/dl (12.0-15.5)
== END ==
LOC: M WUC 10:36
DX: D50.0 Iron deficiency anemia secondary to blood loss (chronic) (principal)
CPT/HCPCS: 85014

== ENCOUNTER → 2017-12-18 | Outpatient (CLI) | payer OTHER, MEDICARE ==
[2017-12-18 13:51] LABS: HEMATOCRIT 35.8 % (36.0-47.0); HEMOGLOBIN 11.3 g/dl (12.0-15.5)
== END ==
LOC: M WUC 10:28
DX: D50.0 Iron deficiency anemia secondary to blood loss (chronic) (principal)
CPT/HCPCS: 85014

== ENCOUNTER → 2017-12-25 | Outpatient (CLI) | payer OTHER, MEDICARE ==
[2017-12-25 13:32] LABS: HEMATOCRIT 33.3 % (36.0-47.0); HEMOGLOBIN 10.7 g/dl (12.0-15.5)
== END ==
LOC: M WUC 08:58
DX: D50.0 Iron deficiency anemia secondary to blood loss (chronic) (principal)
CPT/HCPCS: 85014

== ENCOUNTER → 2018-01-30 | Outpatient (CLI) | payer OTHER, MEDICARE ==
[2018-01-30 12:00] LABS: HEMATOCRIT 30.6 % (36.0-47.0); HEMOGLOBIN 9.8 g/dl (12.0-15.5)
== END ==
LOC: M WUC 09:16
DX: D50.0 Iron deficiency anemia secondary to blood loss (chronic) (principal)

== ENCOUNTER → 2018-01-30 | Outpatient (CLI) | payer OTHER, MEDICARE ==
[2018-01-30 12:01] LABS: BASO # 0.1 10^3/uL (0.0-0.2); BASO % 1.6 % (0.0-1.0); EOS # 0.4 10^3/uL (0.0-0.50); EOS % 6.1 % (0.0-3.0); HEMATOCRIT 30.2 % (36.0-47.0); HEMOGLOBIN 9.7 g/dl (12.0-15.5); IMMATURE GRANULOCYTE % 0.2 % (0-3.0); LYMPH # 2.4 10^3/uL (1.5-4.5); LYMPH % 38.1 % (24.0-44.0); MEAN CORPUSCULAR HEMOGLOBIN 24.7 pg (27.0-33.0); MEAN CORPUSCULAR HGB CONC 32.1 g/dl (32.0-36.5); MEAN CORPUSCULAR VOLUME 76.8 fl (80.0-96.0); MONO # 0.7 10^3/uL (0.0-0.8); MONO % 11.5 % (0.0-5.0); NEUTROPHILS # 2.7 10^3/uL (1.8-7.7); NEUTROPHILS % 42.5 % (36.0-66.0); PLATELET COUNT, AUTOMATED 222 10^3/uL (150-450); RED BLOOD COUNT 3.93 10^6/uL (4.00-5.40); RED CELL DISTRIBUTION WIDTH 13.7 % (11.5-14.5); WHITE BLOOD COUNT 6.4 10^3/uL (4.0-10.0)
[2018-02-04 13:09] LABS: ALBUMIN 3.64 GM/DL (3.29-5.55); ALPHA-1-GLOBULIN % 3.9 % (2.9-4.9); ALPHA-1-GLOBULINS 0.27 GM/DL (0.17-0.41)
[2018-02-04 13:10] LABS: BETA-1-GLOBULINS 0.62 GM/DL (0.28-0.60); BETA-1-GLOBULINS % 8.9 % (4.7-7.2); BETA-2-GLOBULINS 0.53 GM/DL (0.19-0.55); BETA-2-GLOBULINS % 7.5 % (3.2-6.5); GAMMA GLOBULIN % 17.7 % (11.1-18.8); GAMMA GLOBULINS 1.24 GM/DL (0.65-1.58)
== END ==
LOC: M WUC 09:12
DX: M79.652 Pain in left thigh (principal)
CPT/HCPCS: 84165

== ENCOUNTER → 2018-02-06 | Outpatient (REF) | payer OTHER, MEDICARE ==
[~2018-02-06] MED LIST changes: +AMIT25TA PO; +AMLO10TA4 PO; +AMLO5TAB4 PO; +ASPI81TA24 PO; +ASPI81TAEC PO; +Acetaminophen Tab PO; +BRIL90TA PO; +CARV12.5 PO; +CARV6.25 PO; +FARX1TAB3 PO; +FERR1TAB8 PO; +FURO20TA2 PO; -GEMF600T PO; +GEMF600T5 PO; +HUMA100I5 SC; -HUMA100I5 SUBQ; +INSUDET SC; +INSUH10VL SC; +ISOS30TA4 PO; +LEVO50TA5 PO; +LISI-542 PO; +NORCOTAB PO; +PANT40TA3 PO; +POTA1TAB23 PO; +SUCR1TA PO; +SYNT25TA PO; +TIZA4CAP PO; -TIZA4CAP3 PO; +VALS1TAB46 PO; +VALS1TAB48 PO
[2018-02-06 10:49] LABS: HEMATOCRIT 32.4 % (36.0-47.0); HEMOGLOBIN 10.2 g/dl (12.0-15.5)
== END ==
LOC: M LAB 10:29
PROVIDERS: ATTEND Nurse Practitioner Family
DX: D50.0 Iron deficiency anemia secondary to blood loss (chronic) (principal)

== ENCOUNTER → 2018-02-27 | Outpatient (REF) | payer MEDICARE ==
[2018-02-27 13:27] LABS: HEMATOCRIT 30.1 % (36.0-47.0); HEMOGLOBIN 9.1 g/dl (12.0-15.5); MEAN CORPUSCULAR HEMOGLOBIN 21.8 pg (27.0-33.0); MEAN CORPUSCULAR HGB CONC 30.2 g/dl (32.0-36.5); MEAN CORPUSCULAR VOLUME 72.2 fl (80.0-96.0); PLATELET COUNT, AUTOMATED 205 10^3/uL (150-450); RED BLOOD COUNT 4.17 10^6/uL (4.00-5.40); WHITE BLOOD COUNT 5.2 10^3/uL (4.0-10.0)
[2018-02-27 13:53] LABS: BLOOD UREA NITROGEN 13 MG/DL (7-18); CALCIUM LEVEL 8.8 MG/DL (8.8-10.2); CARBON DIOXIDE LEVEL 21 MEQ/L (21-32); CHLORIDE LEVEL 106 MEQ/L (98-107); CREATININE FOR GFR 0.91 MG/DL (0.55-1.30); GLOMERULAR FILTRATION RATE > 60.0 (>45); GLUCOSE, FASTING 290 MG/DL (70-100); POTASSIUM SERUM 3.8 MEQ/L (3.5-5.1); SODIUM LEVEL 139 MEQ/L (136-145)
== END ==
LOC: M SFHCPLAZ 11:16
PROVIDERS: ATTEND Family Medicine
DX: D50.0 Iron deficiency anemia secondary to blood loss (chronic) (principal); E87.6 Hypokalemia

== ENCOUNTER 2018-03-06 13:04 | Observation (INO) | payer MEDICARE ==
[~2018-03-06] VITALS: Ht 162.6 cm; Wt 94.0 kg
[~2018-03-06 13:04] MED LIST changes: -AMLO10TA4 PO; +AMLO10TA5 PO; -AMLO5TAB4 PO; +AMLO5TAB6 PO
[2018-03-06] MEDS ORDERED: ONDANSETRON 4MG/2ML VIAL (J2405) IV ONE (13:30)
[2018-03-06] MEDS ORDERED: NS 500 ML IV ONE (13:30)
[2018-03-06 13:39] LABS: BASO # 0.1 10^3/uL (0.0-0.2); BASO % 0.6 % (0.0-1.0); EOS # 0.1 10^3/uL (0.0-0.50); EOS % 1.2 % (0.0-3.0); HEMATOCRIT 29.5 % (36.0-47.0); HEMOGLOBIN 8.9 g/dl (12.0-15.5); MEAN CORPUSCULAR HEMOGLOBIN 21.3 pg (27.0-33.0); MEAN CORPUSCULAR HGB CONC 30.2 g/dl (32.0-36.5); MEAN CORPUSCULAR VOLUME 70.7 fl (80.0-96.0); MONO # 0.7 10^3/uL (0.0-0.8); MONO % 6.2 % (0.0-5.0); NEUTROPHILS # 9.1 10^3/uL (1.8-7.7); NEUTROPHILS % 82.6 % (36.0-66.0); PLATELET COUNT, AUTOMATED 213 10^3/uL (150-450); RED BLOOD COUNT 4.17 10^6/uL (4.00-5.40)
[2018-03-06 13:47] LABS: INR 1.15; PROTHROMBIN TIME 14.8 SECONDS (12.1-14.4)
[2018-03-06 14:08] LABS: ALBUMIN 3.5 GM/DL (3.2-5.2); ALT/SGPT 25 U/L (12-78); BILIRUBIN,DIRECT 0.4 MG/DL (0.0-0.2); BILIRUBIN,TOTAL 1.9 MG/DL (0.2-1.0); BLOOD UREA NITROGEN 15 MG/DL (7-18); CALCIUM LEVEL 9.3 MG/DL (8.8-10.2); CARBON DIOXIDE LEVEL 21 MEQ/L (21-32); CHLORIDE LEVEL 105 MEQ/L (98-107); CPK CREATINE PHOSPHOKINASE 73 U/L (26-192); GLOMERULAR FILTRATION RATE > 60.0 (>45); GLUCOSE, FASTING 232 MG/DL (70-100); MAGNESIUM LEVEL 1.5 MG/DL (1.8-2.4); MB/CK RELATIVE INDEX 1.78 (< OR =4); POTASSIUM SERUM 3.9 MEQ/L (3.5-5.1); SODIUM LEVEL 140 MEQ/L (136-145); TOTAL PROTEIN 7.2 GM/DL (6.4-8.2); TROPONIN I 0.25 NG/ML (< 0.10)
[2018-03-06] MEDS ORDERED: MAGNESIUM OXIDE 400 MG TAB (MAG-OX) PO ONE (14:15)
[2018-03-06] MEDS ORDERED: MAG SULF 1GM/100ML (MAG RUN) 1 GM in APPROPRIATE DILUENT 1 EA IV ONE ×2 (14:15→18:45)
--- NOTE | 2018-03-06 14:16 | REP ---
ABDOMEN, FLAT UPRIGHT PA CHEST, THREE VIEWS: HISTORY: Abdominal pain. A small amount of air is present in small and large intestine. A single air fluid level is present. There are no dilated loops of intestine. There is no pneumoperitoneum. Linear density is present in the left lower lobe consistent with scar. IMPRESSION: Nonspecific bowel gas pattern. Electronically Signed by Shola Rice MD 03/06/2018 02:19 P
[2018-03-06] MEDS ORDERED: MORPHINE 2 MG/ML 1ML SYRINGE (J2270) IV ONE (14:30)
[2018-03-06] MEDS ORDERED: PROMETHAZINE INJ 25 MG/ML VIAL (J2550) IV ONE (14:30)
[2018-03-06 18:36] LABS: MAGNESIUM LEVEL 1.6 MG/DL (1.8-2.4); MB/CK RELATIVE INDEX 2.03 (< OR =4); TROPONIN I 0.24 NG/ML (< 0.10)
[2018-03-06] MEDS ORDERED: ACETAMINOPHEN TAB 650MG DOSE (2X325MG) PO PRN (20:00)
[2018-03-06] MEDS ORDERED: ONDANSETRON 4MG/2ML VIAL (J2405) IV PRN (20:00)
[2018-03-06] MEDS ORDERED: METF-700 PO (20:13)
[2018-03-06] MEDS ORDERED: SUCR1TA PO (20:13)
[2018-03-06] MEDS ORDERED: GLUCAGON FOR INJ 1 MG VIAL (J1610) SC PRN (20:15)
[2018-03-06] MEDS ORDERED: GLUCOSE 4 GM CHEW TABLET PO PRN (20:15)
[2018-03-06] MEDS ORDERED: DEXTROSE 50% 50 ML SYRINGE IV PRN (20:15)
[2018-03-06] MEDS ORDERED: HEPARIN SOD (PORCINE) 5000 UNITS/ML VIAL SC SCH (21:00)
--- NOTE | 2018-03-06 21:24 | HPEPDOC ---
[facility] Medical History & Physical Date of Admission Mar 06, 2018 Other Provider Dictating: KYA GUTIERREZ MD Attending Physician: TIM CADE MD History and Physical CHIEF COMPLAINT: Nausea and vomiting 2 days HISTORY OF PRESENT ILLNESS: Patient is a 68-year-old obese woman with medical history significant for NSTEMI with stent placement, hypertension, GI bleed, diabetes, hyperlipidemia, hypothyroidism, diastolic dysfunction heart failure, liver cirrhosis, chronic anemia. Patient sees Dr. Mejia for cardiology follow-up. She reports being in her usual state of health until last evening when she started having bouts of nausea and vomiting. She quantifies her vomiting as filling small cup with each episode. She had about 5-6 bouts yesterday and has since been unable to tolerate by mouth and has had so far about 4 bouts today. Her vomitus is nonbloody, nonbilious contains recently ingested foods. She also denies any dark stools. Due to unresolving symptoms and associated weakness, she decided to seek further medical attention. She denies fever or chills. She denies palpitations. No cough or shortness of breath. She also refers epigastric pain which she says is intermittent and has been on for the past 2 days. The pain is nonradiating. No associated left-sided chest pain, no left neck pain and pain does not radiate to the left arm other than chronic right sided chest pains attributed to fibromyalgia. She denies any long distance travel. She denies any change in her urinary or bowel habits. Patient was resuscitated with IV fluids in the emergency room. Antiemetics were given. However, her labs came up significant for elevated troponins 0.25, which was repeated 4 hours later at 0.24. EKG performed twice was with sinus rhythm, no acute ST or T-wave changes noted. Dr. Mejia was informed and recommendation is to have her admitted as observation and trend troponins. PAST MEDICAL HISTORY: Per HPI PAST SURGICAL HISTORY: 1. Tonsillectomy. 2. section. 3. Open cholecystectomy. 4. Hysterectomy. 5. Anal fistula repair. 6. Stent placement in LAD in June 2017. SOCIAL HISTORY: Denies smoking, alcohol or use of illicit drugs. FAMILY HISTORY: Denies heart disease in the family. ALLERGIES: Please see below. REVIEW OF SYSTEMS: 12 point review of systems negative other than that described in the body of HPI HOME MEDICATIONS: Please see below. PHYSICAL EXAMINATION: GENERAL APPEARANCE: Elderly obese woman, lying calmly in bed, not in any apparent distress. She is not pale, anicteric and afebrile HEENT: Atraumatic. Neck: Supple. LUNGS: Clear to auscultation bilaterally. CARDIOVASCULAR: S1 and 2 heard, no murmurs, rubs or gallops. ABDOMEN: Obese, soft, not tender, not distended. Bowel sounds normoactive. MUSCULOSKELETAL: Apparently within normal limits EXTREMITIES: No pedal edema, 2+ bilateral pedal pulses noted. NEUROLOGICAL: Awake, alert, oriented 3. PSYCHIATRIC: Normal affect LABORATORY DATA: See below. IMAGING: CT abdomen: Nonspecific bowel gas pattern. EKG 2: Normal sinus rhythm, no acute ST or T-wave changes noted. MICROBIOLOGY: Please see below. ASSESSMENT: 68-year-old woman with above-mentioned comorbid history comes in complaining of nausea and vomiting for past 2 days. Exam unremarkable, labs significant for elevated troponin negative. EKG mild anion gap metabolic acidosis and hypomagnesemia. Patient to be admitted for observation and rule out ACS. DIAGNOSES: 1. Gastritis (acute). 2. Mild anion gap metabolic acidosis. 3. Hypomagnesemia. 4. Elevated troponin, rule out ACS. . PLAN: 1. I will admit patient to PCU under care of Dr. Cade. 2. Acute gastritis. Will continue with IV fluid resuscitation normal saline to run at 100 mils per hour. Will also continue with IV Zofran. As soon as able, will try clear liquid diet. 3. Metabolic derangement: Anion gap metabolic acidosis, hypomagnesemia, elevated lactate, likely secondary to prolonged nausea and vomiting. Anticipate response to IV fluid resuscitation. Patient received 2 doses of magnesium supplements in the emergency room. Please follow repeat magnesium levels in the morning. 4. Elevated troponin to rule out ACS: Cardiology consult placed. Dr. Mejia will follow in the morning. We'll cycle 2 more cardiac enzymes and monitor trend. No indication for anticoagulation for now. 5. Diabetes: Patient will be placed on sliding scale insulin with glycemia pr otocol observed and ADA diet. 6. Will resume outpatient medication as soon as fully reconciled and as soon as patient is able to tolerate by mouth. 7. GI prophylaxis, by mouth pantoprazole. 8. DVT prophylaxis subcutaneous heparin 5000 international units every 12 hours. 9. Further management will depend on patient's clinical course. Vital Signs Vital Signs Date Time Temp Pulse Resp B/P (MAP) Pulse Ox O2 Delivery O2 Flow Rate FiO2 03/06/18 19:32 99.6 03/06/18 19:30 81 18 163/69 (100) 95 Room Air Laboratory Data Labs 24H Laboratory Tests 2 03/06/18 13:22: Immature Granulocyte % (Auto) 0.4, White Blood Count 11.0H, Red Blood Count 4.17, Hemoglobin 8.9L, Hematocrit 29.5L, Mean Corpuscular Volume 70.7L, Mean Corpuscular Hemoglobin 21.3L, Mean Corpuscular Hemoglobin Concent 30.2L, Red Cell Distribution Width 16.2H, Platelet Count 213, Neutrophils (%) (Auto) 82.6H, Lymphocytes (%) (Auto) 9.0L, Monocytes (%) (Auto) 6.2H, Eosinophils (%) (Auto) 1.2, Basophils (%) (Auto) 0.6, Neutrophils # (Auto) 9.1H, Lymphocytes # (Auto) 1.0L, Monocytes # (Auto) 0.7, Eosinophils # (Auto) 0.1, Basophils # (Auto) 0.1, Nucleated Red Blood Cells % (auto) 0.0, Prothrombin Time 14.8H, Prothromb Time International Ratio 1.15, Anion Gap 14, Glomerular Filtration Rate > 60.0, Calcium Level 9.3, Magnesium Level 1.5L, Aspartate Amino Transf (AST/SGOT) 30, Alanine Aminotransferase (ALT/SGPT) 25, Alkaline Phosphatase 92, Total Bilirubin 1.9H, Direct Bilirubin 0.4H, Total Creatine Kinase 73, Creatine Kinase MB 1.0, Creatine Kinase MB Relative Index 1.78, Troponin I 0.25H, Total Protein 7.2, Albumin 3.5, Albumin/Globulin Ratio 0.95L 03/06/18 14:40: Lactic Acid Level 2.3*H 03/06/18 17:49: Magnesium Level 1.6L, Total Creatine Kinase 59, Creatine Kinase MB 1.0, Creatine Kinase MB Relative Index 2.03, Troponin I 0.24H, QF-Htw-A-Type Natriuretic Peptide 1429H, Lipase 86 03/06/18 17:50: Lactic Acid Level 2.4*H 03/06/18 19:00: Urine Color YELLOW, Urine Appearance CLEAR, Urine pH 5.0, Urine Specific [place] 1.029, Urine Protein NEGATIVE, Urine Glucose (UA) 3+H, Urine Ketones 1+H, Urine Blood NEGATIVE, Urine Nitrite NEGATIVE, Urine Bilirubin NEGATIVE, Urine Urobilinogen 0.2, Urine Leukocyte Esterase NEGATIVE, Urine WBC (Auto) 1, Urine RBC (Auto) 2, Urine Hyaline Casts (Auto) 0, Urine Bacteria (Auto) NEGATIVE, Urine Squamous Epithelial Cells 0, Urine Mucus (Auto) SMALL, Urine Sperm (Auto) CBC/BMP Laboratory Tests 03/06/18 13:22 Red Blood Count 4.17, Mean Corpuscular Volume 70.7 L, Mean Corpuscular Hemoglobin 21.3 L, Mean Corpuscular Hemoglobin Concent 30.2 L, Red Cell Distribution Width 16.2 H, Neutrophils (%) (Auto) 82.6 H, Lymphocytes (%) (Auto) 9.0 L, Monocytes (%) (Auto) 6.2 H, Eosinophils (%) (Auto) 1.2, Basophils (%) (Auto) 0.6, Neutrophils # (Auto) 9.1 H, Lymphocytes # (Auto) 1.0 L, Monocytes # (Auto) 0.7, Eosinophils # (Auto) 0.1, Basophils # (Auto) 0.1 Home Medications Scheduled Atorvastatin Calcium (Atorvastatin Calcium) 20 Mg Tab, 20 MG PO DAILY Carvedilol (Carvedilol) 12.5 Mg Tab, 12.5 MG PO BID Dapagliflozin Propanediol (Farxiga) 10 Mg Tab, 5 MG PO DAILY Insulin Aspart (Novolog) 100 U/Ml Inj, 1 DOSE SC AC PER SLIDING SCALE Insulin Detemir (Levemir) 1 Units/0.01 Ml Susp, 35 UNITS SC BID Isosorbide Mononitrate (Isosorbide Mononitrate ER) 30 Mg Tab, 30 MG PO DAILY Levothyroxine Sodium (Synthroid) 25 Mcg Tab, 25 MCG PO DAILY Metformin Hydrochloride (Metformin HCl ER) 1,000 Mg Tab, 1,000 MG PO BID Pantoprazole Sodium (Pantoprazole Sodium) 40 Mg Tab, 40 MG PO DAILY Potassium Chloride (Potassium Chloride ER) 10 Meq Tab, 10 MEQ PO BID Sucralfate (Carafate) 1 Gm Tab, 1 GM PO BID Ticagrelor Base (Brilinta) 90 Mg Tab, 90 MG PO BID Tizanidine Hydrochloride (Tizanidine HCl) 4 Mg Cap, 4 MG PO QHS Allergies Coded Allergies: Quinolones (Verified Allergy, Intermediate, RASH , 01/03/17) Gatifloxacin (Unverified Allergy, Unknown, ZYMAXID, 01/03/17) KYA GUTIERREZ MD Mar 06, 2018 21:24
[2018-03-06] MEDS: NS 1,000 ML IV SCH (22:57)
[2018-03-07] MEDS: HumaLOG INSULIN (NovoLOG) PER UNIT SC SCH ×4 (00:18→18:34)
[2018-03-07] MEDS ORDERED: tiZANidine 4 MG TAB PO SCH ×2 (00:45→21:00)
[2018-03-07 03:30] VITALS: BP 120/59
[2018-03-07 03:51] LABS: ABG BASE EXCESS -1.2 (-2.0-2.0); ABG HCO3 22.7 MEQ/L (22.0-26.0); ABG O2 SATURATION 95.5 % (95.0-99.0); ABG PARTIAL PRESSURE CO2 34.3 mmHg (35.0-45.0); ABG PARTIAL PRESSURE O2 77.4 mmHg (75.0-100.0); ABG STANDARD HCO3 23.4 MEQ/L (22.0-26.0); ABG TOTAL CO2 23.8 MEQ/L (23.0-31.0); ABG pH (ARTERIAL) 7.439 UNITS (7.350-7.450)
[2018-03-07] MEDS: LEVOTHYROXINE 25MCG TABLET (0.025MG) PO SCH (06:19)
[2018-03-07 06:40] LABS: MEAN CORPUSCULAR HEMOGLOBIN 21.3 pg (27.0-33.0); MEAN CORPUSCULAR HGB CONC 29.2 g/dl (32.0-36.5); MEAN CORPUSCULAR VOLUME 72.9 fl (80.0-96.0); PLATELET COUNT, AUTOMATED 151 10^3/uL (150-450); RED BLOOD COUNT 3.29 10^6/uL (4.00-5.40); WHITE BLOOD COUNT 4.6 10^3/uL (4.0-10.0)
[2018-03-07 07:05] LABS: CREATININE FOR GFR 1.26 MG/DL (0.55-1.30); GLOMERULAR FILTRATION RATE 45.2 (>45); MAGNESIUM LEVEL 1.8 MG/DL (1.8-2.4); POTASSIUM SERUM 3.6 MEQ/L (3.5-5.1); TROPONIN I 0.23 NG/ML (< 0.10)
[2018-03-07 08:11] VITALS: BP 130/63
[2018-03-07] MEDS ORDERED: POTASSIUM CHLORIDE 10 MEQ SR TABLET PO ONE (09:00)
[2018-03-07] MEDS: SUCRALFATE 1 GM TAB PO SCH ×2 (09:00→20:00)
[2018-03-07] MEDS ORDERED: POTASSIUM CHLORIDE 10 MEQ SR TABLET PO SCH (09:00)
[2018-03-07 09:17] LABS: ALBUMIN 2.7 GM/DL (3.2-5.2); BILIRUBIN,DIRECT 0.4 MG/DL (0.0-0.2); BILIRUBIN,TOTAL 1.2 MG/DL (0.2-1.0); C REACTIVE PROTEIN QUANTITATIV 1.29 MG/DL (0.00-0.30); TOTAL PROTEIN 5.5 GM/DL (6.4-8.2)
--- NOTE | 2018-03-07 09:35 | REP ---
Portable chest x-ray: Single view. History: Epigastric pain. Comparison study: March 06, 2018. Findings: EKG monitoring electrodes overlie the chest. There is mild linear fibrosis in the left perihilar region unchanged. There is an eventration of the right hemidiaphragm. Heart size is near the upper range of normal unchanged. Pulmonary vasculature is not increased. Impression: No active disease. Linear fibrosis left perihilar region. Electronically Signed by Frantz Ruiz MD 03/07/2018 09:27 A
[2018-03-07] MEDS: ATORVASTATIN 20 MG TAB PO SCH (09:44)
[2018-03-07] MEDS: PANTOPRAZOLE 40MG TAB (PROTONIX) PO SCH (09:45)
[2018-03-07] MEDS: TICAGRELOR 90 MG TABLET (BRILINTA) PO SCH ×2 (09:45→20:00)
[2018-03-07] MEDS: ISOSORBIDE MON. (IMDUR) 30 MG XR TAB PO SCH (09:45)
[2018-03-07] MEDS: CARVedilol 12.5 MG TAB PO SCH ×2 (09:46→20:01)
[2018-03-07] MEDS: NS 1,000 ML IV SCH (09:46)
--- NOTE | 2018-03-07 13:05 | REP ---
CT abdomen and pelvis without IV or oral contrast: History: Right lower quadrant pain. Epigastric pain. Comparison CT study: August 02, 2017. 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 There are clips in right upper quadrant post cholecystectomy. The lung bases are essentially clear on axial CT images. No adrenal lesion is seen. No focal hepatic or splenic lesion is seen. There is an accessory splenule anterior to the spleen. There is another posterior to the spleen. These are unchanged. No pancreatic abnormality is observed. Vascular calcifications noted. Normal caliber aorta is seen. No evidence of hydronephrosis is seen on either side. No renal calculus is seen. No renal mass is observed. There is no evidence of gastrointestinal obstructive lesion. No abdominal wall defect seen. A normal appendix is noted in the right lower quadrant. The uterus is surgically absent. Urinary bladder is unremarkable. No abnormal fluid collection is seen. No evidence of free air. No bony destructive lesion is appreciated. Impression: Post cholecystectomy and hysterectomy. Normal appendix seen. No acute abdominal or pelvic abnormality seen. Electronically Signed by Frantz Ruiz MD 03/07/2018 03:13 P
--- NOTE | 2018-03-07 13:54 | ECGEPIP ---
Stationary ECG Study [facility] - ED Test Date: 2018-03-06 Pat Name: MARIANA SMITH Department: Room: - Gender: F Patient Transport Orderly: : 1950 Requested By: MARIA FERNANDA Ayoub Order Number: [id number] Reading MD: Antonina Hazel Measurements Intervals [place] Rate: 84 P: 49 [place]: 135 QRS: -25 QRSD: 114 T: 120 QT: 375 QTc: 444 Interpretive Statements SINUS RHYTHM BORDERLINE LEFT AXIS DEVIATION MODERATE INTRAVENTRICULAR CONDUCTION DELAY ST DEVIATION AND MODERATE T-WAVE ABNORMALITY, CONSIDER ISCHEMIA Electronically Signed On 03-07-2018 13:54:27 EST by Antonina Hazel
--- NOTE | 2018-03-07 13:57 | ECGEPIP ---
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
[2018-03-07] MEDS ORDERED: SLF 3 ML SYR IV PRN (14:15)
--- NOTE | 2018-03-07 15:01 | REP ---
Portable chest x-ray: Single view. History: Shortness of breath. Comparison study: March 07, 2018. Findings: The lungs are symmetrically aerated and clear. Cardiomediastinal silhouette is unchanged. There is minimal linear fibrosis at the left base. Pleural angles are sharp. No new infiltrate is seen. Impression: Borderline heart size. Linear fibrosis left base. Otherwise no acute disease. Electronically Signed by Frantz Ruiz MD 03/07/2018 03:19 P
[2018-03-07 15:08] LABS: HEMATOCRIT 25.4 % (36.0-47.0); HEMOGLOBIN 7.4 g/dl (12.0-15.5); MEAN CORPUSCULAR HEMOGLOBIN 21.7 pg (27.0-33.0); MEAN CORPUSCULAR HGB CONC 29.1 g/dl (32.0-36.5); MEAN CORPUSCULAR VOLUME 74.5 fl (80.0-96.0); PLATELET COUNT, AUTOMATED 152 10^3/uL (150-450); RED BLOOD COUNT 3.41 10^6/uL (4.00-5.40); WHITE BLOOD COUNT 4.3 10^3/uL (4.0-10.0)
--- NOTE | 2018-03-07 15:18 | IPNPDOC ---
Text Note Date of Service The patient was seen on 03/07/18. NOTE Subjective: Patient denies any chest pain or palpitations at this time. States she had lower quadrant abdominal discomfort. No rebound guarding or rigidity. Objective: Vitals: (see below) General: No acute distress, laying comfortably in bed. HEENT: Moist mucous membranes. Neck: No JVD or lymphadenopathy Cardiac: RRR, No murmurs Pulm: Clear to auscultation b/l. No wheezing, rhonchi Abd: Minimal tenderness in the lower quadrants. No rebound guarding or rigidity./ND + BS Ext: No edema or cyanosis Labs (see below) Images: Assessment/Plan 1. Gastroenteritis- patient states her symptoms are improving. Status post IV fluids. No longer nauseous and currently tolerating a diet. Had nausea vomiting abdominal pain diarrhea prior to arrival, and states she had diarrhea today again. We'll send for GI panel. 2. Acute on chronic anemia- ? Chronic GI bleed. Patient notes she's had multiple transfusions in the past, and has had upper and lower endoscopies with Dr. Mustafa with no acute source of bleeding noted. She was advised to follow-up closely outpatient with GI for possible capsule endoscopy in the near future. We'll transfuse 1 unit PRBC. 3. Elevated troponin- patient does not note any chest pain at this time. Feels well. History of an STEMI and PCI June 2017. Dr. Mejia consulted in the ER. 4. Hypomagnesemia/metabolic acidosis/lactic acidosis likely secondary to gastroparesis. Improved. 5. Diabetes mellitus on sliding scale insulin. Compensated diet. DVT prophy: Heparin subcutaneous VS,Fishbone, I+O VS, Fishbone, I+O Laboratory Tests 03/07/18 06:26 Red Blood Count 3.29 L, Mean Corpuscular Volume 72.9 L, Mean Corpuscular Hemoglobin 21.3 L, Mean Corpuscular Hemoglobin Concent 29.2 L, Red Cell Distribution Width 16.2 H 03/07/18 14:59 Red Blood Count 3.41 L, Mean Corpuscular Volume 74.5 L, Mean Corpuscular Hemoglobin 21.7 L, Mean Corpuscular Hemoglobin Concent 29.1 L, Red Cell Dis tribution Width 16.5 H Vital Signs Date Time Temp Pulse Resp B/P (MAP) Pulse Ox O2 Delivery O2 Flow Rate FiO2 03/07/18 09:46 62 130/63 03/07/18 08:11 97.6 20 97 Room Air I&O- Last 24 Hours up to 6 AM 03/07/18 06:00 Intake Total 500 ml Output Total 0 ml Balance 500 ml TIM CADE MD Mar 07, 2018 15:18
[2018-03-07 15:38] LABS: CALCIUM LEVEL 7.9 MG/DL (8.8-10.2); CREATININE FOR GFR 1.38 MG/DL (0.55-1.30); GLOMERULAR FILTRATION RATE 40.7 (>45); MB/CK RELATIVE INDEX 1.81 (< OR =4); POTASSIUM SERUM 3.9 MEQ/L (3.5-5.1); TROPONIN I 0.22 NG/ML (< 0.10)
[2018-03-07 16:00] VITALS: BP 158/71
--- NOTE | 2018-03-07 19:53 | ECHO ---
DATE OF PROCEDURE: 03/07/2018 REFERRING PHYSICIAN: Daphne INDICATION: Chest pain. Height: 163 cm Weight: 91 kg DIMENSIONS: IVS: 1.4 LV: 5.3 LVPW: 1.5 LA: 4.8 Aorta: 2.9 IVC: 2.2 Mitral E wave velocity: 99 A-wave: 106 E prime septal: 4.4 E prime lateral: 6.1. Left atrial volume index: 50 mL per meter square FINDINGS: The study is of acceptable technical quality. Left ventricle is of normal size and normal systolic function with estimated left ventricular ejection fraction (LVEF) 60-65%. Moderate left ventricular hypertrophy is present. Right ventricle appears normal. Left atrium is severely enlarged. Right atrium is at least mildly enlarged. Aortic valve is mildly sclerotic, but it has normal mobility. There are also mild degenerative abnormalities of mitral valve but mobility of leaflets is preserved. Tricuspid valve appears normal. Pulmonic valve also appears normal. No pericardial effusion is noted. Inferior vena cava is dilated but appropriately collapses with respiration indicative of likely mildly elevated central venous pressure. Aortic root is normal. Aortic arch appears normal, but abdominal aorta was not well seen. Doppler interrogation reveals no significant aortic insufficiency and trivial stenosis with mean gradient 9 mmHg. There is trace mitral insufficiency and trace tricuspid insufficiency. Calculated pulmonary artery pressure is in 30s corresponding to mild pulmonary hypertension. Pulmonic valve is functionally competent. Mitral inflow pattern and tissue Doppler imaging of mitral annulus revealed grade 1 diastolic dysfunction. CONCLUSIONS: 1. Study is of acceptable technical quality. 2. Normal left ventricular (LV) size with moderate left ventricular hypertrophy (LVH) and preserved LV systolic function. Grade 1 diastolic dysfunction. 3. Aortic sclerosis. 4. Elevated central venous pressure. 5. Suggestive of mild pulmonary hypertension. COMMENT: Subacute bacterial endocarditis (SBE) prophylaxis is not recommended. The study is consistent with hypertensive heart disease. No definite wall motion abnormalities were seen.
[2018-03-07 20:00] VITALS: BP 169/78
[2018-03-07] MEDS: SLF 3 ML SYR IV SCH (20:04)
--- NOTE | 2018-03-07 22:09 | ECGEPIP ---
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
[2018-03-07 23:59] VITALS: BP 97/46
[2018-03-08] MEDS: HumaLOG INSULIN (NovoLOG) PER UNIT SC SCH ×2 (00:16→05:53)
[2018-03-08 04:00] VITALS: BP 104/56
[2018-03-08] MEDS: LEVOTHYROXINE 25MCG TABLET (0.025MG) PO SCH (05:53)
[2018-03-08] MEDS: SLF 3 ML SYR IV SCH ×2 (05:54→14:00)
[2018-03-08 07:33] VITALS: BP 137/62
[2018-03-08] MEDS: ATORVASTATIN 20 MG TAB PO SCH (08:25)
[2018-03-08] MEDS: PANTOPRAZOLE 40MG TAB (PROTONIX) PO SCH (08:25)
[2018-03-08] MEDS: SUCRALFATE 1 GM TAB PO SCH (08:25)
[2018-03-08 08:26] VITALS: BP 137/62
[2018-03-08] MEDS: TICAGRELOR 90 MG TABLET (BRILINTA) PO SCH (08:26)
[2018-03-08] MEDS: ISOSORBIDE MON. (IMDUR) 30 MG XR TAB PO SCH (08:26)
[2018-03-08] MEDS: CARVedilol 12.5 MG TAB PO SCH (08:26)
[2018-03-08] MEDS ORDERED: amLODIPine 5 MG TAB PO SCH (09:00)
[2018-03-08 09:09] LABS: BASO # 0.1 10^3/uL (0.0-0.2); EOS # 0.6 10^3/uL (0.0-0.50); EOS % 10.7 % (0.0-3.0); HEMATOCRIT 28.1 % (36.0-47.0); HEMOGLOBIN 8.2 g/dl (12.0-15.5); LYMPH % 38.5 % (24.0-44.0); MEAN CORPUSCULAR HEMOGLOBIN 21.9 pg (27.0-33.0); MEAN CORPUSCULAR HGB CONC 29.2 g/dl (32.0-36.5); MEAN CORPUSCULAR VOLUME 74.9 fl (80.0-96.0); MONO # 0.9 10^3/uL (0.0-0.8); MONO % 17.3 % (0.0-5.0); NEUTROPHILS # 1.7 10^3/uL (1.8-7.7); NEUTROPHILS % 31.9 % (36.0-66.0); PLATELET COUNT, AUTOMATED 144 10^3/uL (150-450); RED BLOOD COUNT 3.75 10^6/uL (4.00-5.40); WHITE BLOOD COUNT 5.3 10^3/uL (4.0-10.0)
[2018-03-08 09:33] LABS: ALBUMIN 2.6 GM/DL (3.2-5.2); ALT/SGPT 26 U/L (12-78); BLOOD UREA NITROGEN 16 MG/DL (7-18); CALCIUM LEVEL 7.9 MG/DL (8.8-10.2); CARBON DIOXIDE LEVEL 25 MEQ/L (21-32); CHLORIDE LEVEL 112 MEQ/L (98-107); CREATININE FOR GFR 0.86 MG/DL (0.55-1.30); GLOMERULAR FILTRATION RATE > 60.0 (>45); GLUCOSE, FASTING 173 MG/DL (70-100); SODIUM LEVEL 145 MEQ/L (136-145); TOTAL PROTEIN 5.6 GM/DL (6.4-8.2)
[2018-03-08] MEDS ORDERED: AMLO5TAB6 PO (11:34)
[2018-03-08 11:52] VITALS: BP 141/65
--- NOTE | 2018-03-08 11:58 | CR ---
DATE OF CARDIOLOGY CONSULTATION: 03/07/2018 REASON FOR CONSULTATION: Abnormal serum troponin. HISTORY OF PRESENT ILLNESS: 68-year-old woman, well known by the office, and the last time she was there was on 11/27/2017. She has been stable from a cardiac point of view. In 2017, she was complaining of shortness of breath and her echocardiogram revealed a normal global left ventricular systolic function. She was also found to have coronary artery calcifications. She was supposed to have a stress test but she did not follow and on 07/08/2017, she was admitted to the [facility] with chest pain, elevated blood pressure and she went in for a non-ST elevation myocardial infarction. She was transferred to [facility] and cardiac catheterization was followed by percutaneous transluminal coronary angioplasty (PTCA)/drug-elucting stent (ANNABEL) to the proximal left anterior descending (LAD) for a severe focal stenosis. Left ventricular ejection fraction (LVEF) was reported to be 50%. She then was admitted 2 months later with anemia secondary to acute blood loss, guaiac was positive. She was transfused 2 units of packed red blood cells. Serum troponin at that time was negative and she was discharged home on Brilinta. Her aspirin was discontinued. She has been stable from a cardiac point of view. She also was found to have an abnormal CT that may be related to cirrhosis of the liver. At this time, she came to the hospital because of nausea, vomiting, but no melena or hematemesis. Her hemoglobin and hematocrit on admission were 8.9 and 29.5 respectively. She was given IV fluids. Her labs this hospitalization revealed a abnormal serum troponin reported to be 0.24, 0.23 and 0.22. Cardiology input and consult were requested. When I saw Mrs. Juju Danielle on the floor, she was sitting up in bed in no acute distress. She has chronic right shoulder pain. She denies any left-sided chest pain. She denies any more shortness of breath than usual. She has no palpitations, orthopnea, syncope or near-syncope. She denies any active bleeding. There is no melena or hematemesis. Further GI workup revealed no varices. PAST MEDICAL HISTORY: She has a past medical history positive for coronary artery disease with PTCA/ANNABEL to the LAD and a non-ST elevation myocardial infarction, hypertension, hyperlipidemia, diabetes mellitus, obesity, arthritis, and cirrhosis of the liver associated with recurrent anemia, gastroesophageal reflux disease (GERD), hypothyroidism. There is no known history of kidney disease, lung disease, significant valvular heart disease, cardiomyopathy, CVA, atrial fibrillation/flutter, sudden cardiac . PAST SURGICAL HISTORY: Positive for tonsillectomy, section, open cholecystectomy, hysterectomy, anal fistula repair. FAMILY HISTORY: Positive for diverticulosis. SOCIAL HISTORY: Patient lives alone and she denies any smoking or ETOH abuse. ALLERGIES: QUINOLONES, GATIFLOXACIN. ADVANCED DIRECTIVES: The patient is a FULL CODE. HOME MEDICATIONS: According to my last office visit note: - losartan 100 mg by mouth daily - Carafate 1 gram by mouth three times a day with meals - Brilinta 90 mg by mouth twice a day - sucralfate 1 gram by mouth daily - pantoprazole 40 mg by mouth daily - levothyroxine 25 mcg by mouth daily - isosorbide mononitrate 30 mg by mouth daily - Farxiga 5 mg by mouth daily - carvedilol 12.5 mg by mouth twice a day - atorvastatin 20 mg by mouth daily - amlodipine 5 mg by mouth daily - Levemir as directed - hydrocodone as directed - metformin 1000 mg by mouth twice a day - tizanidine 4 mg by mouth three times a day as directed - Toujeo subcentimeter as directed CURRENT MEDICATIONS: - tizanidine 4 mg by mouth at bedtime - pantoprazole 40 mg by mouth daily - atorvastatin 20 mg by mouth daily - carvedilol 12.5 mg by mouth twice a day - isosorbide mononitrate 10 mg by mouth daily - sucralfate 1 gram by mouth twice a day - Brilinta 90 mg by mouth twice a day - levothyroxine 25 mcg by mouth daily - regular insulin coverage - Ondansetron 4 mg every 6 hour IV as needed for nausea or vomiting - Tylenol 650 mg every 4 hours as needed for mild pain or fever - D50 as well as glucose tablets and glucagon as needed for episode of hypoglycemia PHYSICAL EXAMINATION: Patient is alert and oriented, in no acute distress and her vital signs when I saw her revealed a blood pressure of 158/60 with a pulse of 80, respirations 18 and her maximum temperature was 99.5 degrees Fahrenheit with an oxygen saturation of 96% on room air. Head: Atraumatic. Neck: Supple. No jugular venous distention (JVD) appreciated. Lungs: Do not reveal any wheezing or crackles. Heart: The heart examination revealed normal S1 and S2 without gallops. The point of maximal impulse (PMI) is not displaced. There is no rub. There is a systolic murmur, grade 1 to 2/6 over the pericardium laterally at the base of the heart with some radiation to the neck. Carotid bruits also heard, louder over the right carotid artery when compared to the left. Abdomen: Unremarkable. Extremities: Reveal no pedal edema. Peripheral pulses, dorsalis pedis were +2 in ankle. Neurology: Negative for focal deficit. LABS: BMP done on 03/07/2018 revealed a sodium of 138, potassium 3.9, chloride 108, CO2 22, BUN 20, creatinine 1.38. GFR 40.7, fasting glucose 325 and calcium 7.9. Liver enzymes on 03/07/2018 revealed a total bilirubin of 1.2, direct bilirubin of 0.4, AST 31, ALT 21, alkaline phosphatase 60, total bilirubin 5.5, albumin 2.7. CBC on 03/07/2018 revealed a WBC of 4.3, hemoglobin 7.4, hematocrit 25.4 and platelet 152,000. On admission, hemoglobin and hematocrit were 8.9 and 29.5 respectively. PT is 14.8 with an INR of 1.15. ABG on admission revealed a pH of 7.43, pCO2 34, and pO2 77.4. Urinalysis revealed +2 glucose and +1 ketone. Abdominal x-ray on admission revealed nonspecific bowel gas pattern. Chest x-ray on admission revealed no active disease process. Abdominal pelvic CT revealed post cholecystectomy and hysterectomy, otherwise no acute disease process. Chest x-ray on admission revealed borderline cardiomegaly. No manifestation of heart failure. Electrocardiogram on admission 03/06/2018 revealed normal sinus rhythm with mild IVCD, left axis deviation, left anterior hemiblock and nonspecific ST-T abnormalities. Repeated echocardiogram also on 03/06/2018 did not reveal any significant changes. IMPRESSION: Troponinemia in this 68-year-old with a history of coronary artery disease and non-ST elevation myocardial infarction in June of 2017 followed by PTCA/ANNABEL to the proximal LAD. LVEF is now normal by cardiac catheterization in 2018 and also today by echocardiogram. Patient has no chest pain. Her abnormal serum troponin is not consistent with an acute coronary syndrome, most likely related to her infectious/viral process. Her medications were reviewed and I will continue the same for now. According to my office visit note, patient was also on amlodipine and losartan. She will be started on the amlodipine and she can be monitored while in the hospital. The losartan can be restarted as outpatient if needed. Regarding her gastroenteritis, this is being addressed. Her anemia also was addressed. She was transfused 1 unit of packed red blood cells. It was a pleasure to participate in the care of Mrs. Juju Danielle for her underlying cardiac condition. Once again, she appears to be stable and her abnormal serum troponin is not consistent with acute coronary syndrome/acute myocardial infarction. I will ask Dr. Corral to see her as needed over the weekend. Please do not hesitate to call if any questions.
[2018-03-08] MEDS ORDERED: HumaLOG INSULIN (NovoLOG) PER UNIT SC SCH ×2 (12:00→21:00)
--- NOTE | 2018-03-08 13:04 | IPN ---
DATE: 03/08/2018 Mrs. Danielle tells me that she is feeling much better. She no longer vomits. Her chest pain is gone and the diarrhea has improved as well. She was able to walk around progressive care unit (PCU) but it made her rapidly very tired. She feels that she is too weak to return home yet because she lives alone. Vital signs: Blood pressure 137/63, heart rate has been in 50s and 60s. She is afebrile. Saturation 95% on room air. Weight is 94 kg. She is alert and oriented appropriate. Her jugular venous pulse (JVP) is not elevated. Lungs are clear. Good air movement. Heart exam regular rhythm. I do not appreciate gallop, rub. Abdomen is soft. Extremities are free of edema. Neurologically, she is intact. Laboratory quintana: Normal basic metabolic panel but for glucose 173. Her troponin is 0.22. So she totally had five of them drawn. There is no appreciable trend. She is from 0.25, 0.24, 0.23, and 0.22. ASSESSMENT AND PLAN: Mrs. Lolis Sood is a 68-year-old female, who has a history of intervention to LAD last summer, who presented with chest discomfort that followed episode of vomiting that lasted all night. After presentation to hospital, she had developed diarrhea. But both problem seems to have resolved. She had trivial troponin elevation in indeterminate range without any appreciable trend and no convincingly ischemic abnormalities on EKG. I believe that from cardiac perspective she can go home even though probably not today as she feels that she still is too weak to be home alone. She will follow on outpatient with Dr. Mejia regarding further management. Probably will have some form of noninvasive evaluation. Besides the troponin elevation, the second issue that has been plaguing her is chronic anemia. It is iron deficiency anemia, but unfortunately the source of bleeding was never convincingly identified. She continues to be on Brilinta because of stenting. I do not believe that the medication can be safely stopped.
--- NOTE | 2018-03-08 17:03 | DS.PDOC ---
Discharge Summary General Date of Admission Mar 06, 2018 at 19:59 Date of Discharge 03/08/18 Attending Physician: TIM CADE MD Specialist/Consultants Involve: NILAM KEARNS MD Discharge Summary PROCEDURES PERFORMED DURING STAY: None. ADMITTING/DISCHARGE DIAGNOSES: 1. Acute gastroenteritis secondary to norovirus 2. Acute on chronic anemia. ? Chronic GI source. Currently being worked up by Dr. Mustafa. Status post 1 unit PRBC 3. Elevated troponin with no chest pain. 4. Diabetes mellitus 5. Acute kidney injury resolved COMPLICATIONS/CHIEF COMPLAINT: Generalized weakness HISTORY OF PRESENT ILLNESS/HOSPITAL COURSE: This is a 68-year-old female past medical history of CAD status post PCI, chronic anemia with multiple blood transfusions, diabetes mellitus presents with generalized weakness. The patient was noted to have nausea vomiting and diarrhea secondary to norovirus. Patient's gastroenteritis has improved with IV fluids and supportive care. The patient was also noted to have acute on chronic anemia with suspected chronic GI source for which Dr. Mustafa is working her up outpatient. The patient has no overt bleeding at this time. Patient's hemoglobin is stable at this time. The patient did have mild elevations of her troponin, however does not have any chest pain no shortness of breath. Patient was evaluated by cardiology and cleared for discharge. Patient was advised to follow-up with Dr. Kearns in 1-2 weeks. Patient is now hemodynamically stable, and ambulating the hallways without difficulty, tolerating a regular diet, and will discharged home today. DISCHARGE MEDICATIONS: Please see below. ALLERGIES: Please see below. PHYSICAL EXAMINATION ON DISCHARGE: Vitals: (see below) General: No acute distress, laying comfortably in bed. HEENT: Moist mucous membranes. Neck: No JVD or lymphadenopathy Cardiac: RRR, No murmurs Pulm: Clear to auscultation b/l. No wheezing, rhonchi Abd: NT/ND + BS Ext: No edema or cyanosis. Strength 5 out of 5 bilateral lower extremities. LABORATORY DATA: Please see below. PROGNOSIS: Fair ACTIVITY: As tolerated. DIET: As tolerated DISCHARGE PLAN/DISPOSITION: Home DISCHARGE INSTRUCTIONS: 1. Follow-up with PCP, Dr. Mustafa, and Dr. Kearns in 1-2 weeks. Return to the ED if symptoms worsen. DISCHARGE CONDITION: Stable. TIME SPENT ON DISCHARGE: Greater than 30 minutes. Vital Signs/I&Os Vital Signs Date Time Temp Pulse Resp B/P (MAP) Pulse Ox O2 Delivery O2 Flow Rate FiO2 03/08/18 11:52 99.1 63 18 141/65 (90) 97 Room Air I&O- Last 24 Hours up to 6 AM 03/08/18 05:59 Intake Total 3500 ml Output Total 1900 ml Balance 1600 ml Laboratory Data Labs 24H Laboratory Tests 2 03/07/18 17:45: Bedside Glucose (Misc Panel) 288H 03/07/18 23:43: Bedside Glucose (Misc Panel) 242H 03/08/18 05:33: Bedside Glucose (Misc Panel) 195H 03/08/18 08:27: Immature Granulocyte % (Auto) 0.6, White Blood Count 5.3, Red Blood Count 3.75L, Hemoglobin 8.2L, Hematocrit 28.1L, Mean Corpuscular Volume 74.9L, Mean Corpuscular Hemoglobin 21.9L, Mean Corpuscular Hemoglobin Concent 29.2L, Red Cell Distribution Width 17.2H, Platelet Count 144L, Neutrophils (%) (Auto) 31.9L, Lymphocytes (%) (Auto) 38.5, Monocytes (%) (Auto) 17.3H, Eosinophils (%) (Auto) 10.7H, Basophils (%) (Auto) 1.0, Neutrophils # (Auto) 1.7L, Lymphocytes # (Auto) 2.0, Monocytes # (Auto) 0.9H, Eosinophils # (Auto) 0.6H, Basophils # (Auto) 0.1, Nucleated Red Blood Cells % (auto) 0.0, Anion Gap 8, Glomerular Filtration Rate > 60.0, Blood Urea Nitrogen 16, Creatinine 0.86, Sodium Level 145#, Potassium Level 4.0, Chloride Level 112H, Carbon Dioxide Level 25, Calcium Level 7.9L, Aspartate Amino Transf (AST/SGOT) 49H, Alanine Aminotransferase (ALT/SGPT) 26, Alkaline Phosphatase 70, Total Bilirubin 1.0, Total Protein 5.6L, Albumin 2.6L, C-Reactive Protein, Quantitative 0.80H, Albumin/Globulin Ratio 0.87L 03/08/18 12:07: Bedside Glucose (Misc Panel) 343H CBC/BMP Laboratory Tests 03/08/18 08:27 Red Blood Count 3.75 L, Mean Corpuscular Volume 74.9 L, Mean Corpuscular Hemoglobin 21.9 L, Mean Corpuscular Hemoglobin Concent 29.2 L, Red Cell Distribution Width 17.2 H, Neutrophils (%) (Auto) 31.9 L, Lymphocytes (%) (Auto) 38.5, Monocytes (%) (Auto) 17.3 H, Eosinophils (%) (Auto) 10.7 H, Basophils (%) (Auto) 1.0, Neutrophils # (Auto) 1.7 L, Lymphocytes # (Auto) 2.0, Monocytes # (Auto) 0.9 H, Eosinophils # (Auto) 0.6 H, Basophils # (Auto) 0.1, Calcium Level 7.9 L, Aspartate Amino Transf (AST/SGOT) 49 H, Alanine Aminotransferase (ALT/SGPT) 26, Alkaline Phosphatase 70, Total Bilirubin 1.0, Total Protein 5.6 L, Albumin 2.6 L FSBS Laboratory Tests Test 03/07/18 17:45 03/07/18 23:43 03/08/18 05:33 03/08/18 12:07 Range/Units Bedside Glucose (Misc Panel) 288 242 195 343 80-115 MG/DL Microbiology Microbiology 03/07/18 Blood Culture - Preliminary, Resulted No growth after 24 hours . All specim... 03/07/18 Blood Culture - Preliminary, Resulted No growth after 24 hours . All specim... 03/07/18 Gastrointestinal Tract Panel (PCR) - Final, Complete Norovirus Discharge Medications Scheduled Amlodipine Besylate (Amlodipine Besylate) 5 Mg Tab, 5 MG PO DAILY Atorvastatin Calcium (Atorvastatin Calcium) 20 Mg Tab, 20 MG PO DAILY, (Reported) Carvedilol (Carvedilol) 12.5 Mg Tab, 12.5 MG PO BID, (Reported) Dapagliflozin Propanediol (Farxiga) 10 Mg Tab, 5 MG PO DAILY, (Reported) Insulin Aspart (Novolog) 100 U/Ml Inj, 1 DOSE SC AC, (Reported) PER SLIDING SCALE Insulin Detemir (Levemir) 1 Units/0.01 Ml Susp, 35 UNITS SC BID, (Reported) Isosorbide Mononitrate (Isosorbide Mononitrate ER) 30 Mg Tab, 30 MG PO DAILY, (Reported) Levothyroxine Sodium (Synthroid) 25 Mcg Tab, 25 MCG PO DAILY, (Reported) Metformin Hydrochloride (Metformin HCl ER) 1,000 Mg Tab, 1,000 MG PO BID, (Reported) Pantoprazole Sodium (Pantoprazole Sodium) 40 Mg Tab, 40 MG PO DAILY, (Reported) Potassium Chloride (Potassium Chloride ER) 10 Meq Tab, 10 MEQ PO BID, (Reported) Sucralfate (Carafate) 1 Gm Tab, 1 GM PO BID, (Reported) Ticagrelor Base (Brilinta) 90 Mg Tab, 90 MG PO BID, (Reported) Tizanidine Hydrochloride (Tizanidine HCl) 4 Mg Cap, 4 MG PO QHS, (Reported) Allergies Coded Allergies: Quinolones (Verified Allergy, Intermediate, RASH , 01/03/17) Gatifloxacin (Unverified Allergy, Unknown, ZYMAXID, 01/03/17) TIM CADE MD Mar 08, 2018 17:03
== END 2018-03-08 16:00 | disposition home or self-care (01) ==
LOC: M ED 13:04 → M ED INP 19:59 → M PCU 03-07 03:32
PROVIDERS: ADMIT Hospitalist; ATTEND Internal Medicine
DX: A08.11 Acute gastroenteropathy due to Norwalk agent (principal); D64.9 Anemia, unspecified; R78.89 Finding of other specified substances, not normally found in blood; E11.9 Type 2 diabetes mellitus without complications; N17.9 Acute kidney failure, unspecified; Z79.4 Long term (current) use of insulin; Z79.899 Other long term (current) drug therapy; Z88.8 Allergy status to other drugs, medicaments and biological substances; E66.9 Obesity, unspecified; I11.9 Hypertensive heart disease without heart failure; I50.30 Unspecified diastolic (congestive) heart failure; E83.42 Hypomagnesemia; E78.5 Hyperlipidemia, unspecified; E03.9 Hypothyroidism, unspecified
CPT/HCPCS: 36415; 36430; 71045; 74021; 74176; 80048; 80053; 80076; 81001; 82550; 82553; 82803; 83605; 83690; 83735; 83880; 84484; 85025; 85027; 85610; 86140; 86850; 86900; 86901; 86920; 87040; 87507; 93005; 93041; 93306; 94760; 99285; G0378; J2270; J2405; J3475; P9016

== ENCOUNTER → 2018-03-11 | Outpatient (REF) | payer MEDICARE ==
[~2018-03-11] MED LIST changes: +METF-700 PO
[2018-03-11 13:51] LABS: HEMATOCRIT 30.7 % (36.0-47.0); HEMOGLOBIN 8.9 g/dl (12.0-15.5); MEAN CORPUSCULAR HEMOGLOBIN 21.8 pg (27.0-33.0); MEAN CORPUSCULAR VOLUME 75.2 fl (80.0-96.0); PLATELET COUNT, AUTOMATED 198 10^3/uL (150-450); RED BLOOD COUNT 4.08 10^6/uL (4.00-5.40); WHITE BLOOD COUNT 6.8 10^3/uL (4.0-10.0)
[2018-03-11 15:25] LABS: CREATININE, URINE 87.3 MG/DL; MALB URINE SIEMENS 20.9 MG/L; MAU/CREAT RATIO 23.9 MCG/MG (0.0-30.0)
[2018-03-11 15:26] LABS: HEMOGLOBIN A1c 10.7 %
== END ==
LOC: M SFHCPLAZ 10:45
PROVIDERS: ATTEND Family Medicine
DX: D50.0 Iron deficiency anemia secondary to blood loss (chronic) (principal); E11.65 Type 2 diabetes mellitus with hyperglycemia
CPT/HCPCS: 36415; 82043; 83036; 85027; G0463

== ENCOUNTER → 2018-03-25 | Outpatient (CLI) | payer MEDICARE ==
[2018-03-25 15:42] LABS: HEMATOCRIT 29.3 % (36.0-47.0); HEMOGLOBIN 8.3 g/dl (12.0-15.5)
== END ==
LOC: M WUC 11:50
PROVIDERS: ATTEND Family Medicine
DX: D50.0 Iron deficiency anemia secondary to blood loss (chronic) (principal)

== ENCOUNTER 2018-04-02 15:15 | Emergency (ER) | payer MEDICARE ==
[~2018-04-02] VITALS: Ht 162.6 cm; Wt 95.5 kg
[2018-04-02 15:47] LABS: BASO # 0.1 10^3/uL (0.0-0.2); BASO % 1.1 % (0.0-1.0); EOS # 0.5 10^3/uL (0.0-0.50); EOS % 8.3 % (0.0-3.0); HEMATOCRIT 27.8 % (36.0-47.0); LYMPH # 2.2 10^3/uL (1.5-4.5); LYMPH % 38.4 % (24.0-44.0); MEAN CORPUSCULAR HEMOGLOBIN 21.6 pg (27.0-33.0); MEAN CORPUSCULAR HGB CONC 28.8 g/dl (32.0-36.5); MEAN CORPUSCULAR VOLUME 75.1 fl (80.0-96.0); MONO # 0.7 10^3/uL (0.0-0.8); MONO % 12.1 % (0.0-5.0); NEUTROPHILS # 2.3 10^3/uL (1.8-7.7); NEUTROPHILS % 39.9 % (36.0-66.0); PLATELET COUNT, AUTOMATED 204 10^3/uL (150-450); WHITE BLOOD COUNT 5.7 10^3/uL (4.0-10.0)
[2018-04-02 15:57] LABS: INR 1.08; PROTHROMBIN TIME 14.2 SECONDS (12.1-14.4)
--- NOTE | 2018-04-02 16:13 | REP ---
Chest one-view HISTORY: Chest pain Comparison: 03/07/2018 Linear density is present in the left lower lobe consistent with scar. The right lung is clear. The heart is upper normal limits in size. The pulmonary vasculature is normal in appearance. Impression: No acute disease. Electronically Signed by Shola Rice MD 04/02/2018 04:04 P
[2018-04-02 16:30] LABS: ALBUMIN 3.4 GM/DL (3.2-5.2); ALT/SGPT 24 U/L (12-78); BILIRUBIN,DIRECT 0.3 MG/DL (0.0-0.2); BILIRUBIN,TOTAL 1.2 MG/DL (0.2-1.0); BLOOD UREA NITROGEN 15 MG/DL (7-18); CALCIUM LEVEL 8.8 MG/DL (8.8-10.2); CARBON DIOXIDE LEVEL 21 MEQ/L (21-32); CHLORIDE LEVEL 111 MEQ/L (98-107); CPK CREATINE PHOSPHOKINASE 79 U/L (26-192); CREATININE FOR GFR 0.95 MG/DL (0.55-1.30); GLOMERULAR FILTRATION RATE > 60.0 (>45); GLUCOSE, FASTING 253 MG/DL (70-100); LIPASE 192 U/L (73-393); MB/CK RELATIVE INDEX 1.77 (< OR =4); NT-PRO BNP 265 PG/ML (<125); SODIUM LEVEL 141 MEQ/L (136-145)
[2018-04-02] MEDS ORDERED: ISOVUE-370 76% 100ML VIAL (Q9967) As Ordered ONE (17:46)
[2018-04-02 18:09] LABS: MB/CK RELATIVE INDEX 2.62 (< OR =4); TROPONIN I 0.21 NG/ML (< 0.10)
--- NOTE | 2018-04-02 18:19 | REPVR ---
EXAM: CT Angiography Chest With Contrast EXAM DATE/TIME: 04/02/2018 6:06 PM CLINICAL HISTORY: 68 years old, female; Pain; Chest pain; Additional info: R/O pe TECHNIQUE: Axial computed tomographic angiography images of the chest with intravenous contrast using CT angiography protocol. All CT scans at this facility use at least one of these dose optimization techniques: automated exposure control; mA and/or kV adjustment per patient size (includes targeted exams where dose is matched to clinical indication); or iterative reconstruction. Coronal and sagittal reformatted images were created and reviewed. MIP reconstructed images were created and reviewed. CONTRAST: 75 ml of ISOVUE 370 administered intravenously. COMPARISON: CT ANGIO CHEST 07/07/2017 10:21 PM FINDINGS: Pulmonary arteries: No pulmonary embolus. Aorta: The aorta demonstrates mild atherosclerotic calcification. No aortic aneurysm or dissection. Lungs: Normal. No consolidation. No masses. Mild parenchymal scarring as previously noted. Pleural space: Normal. No pneumothorax. No pleural effusion. Heart: There is moderate atherosclerotic calcification of the coronary arteries. Liver: Hepatic findings suggestive of cirrhosis. Clinical correlation needed. Gallbladder and bile ducts: Cholecystectomy. Lymph nodes: Unremarkable. No enlarged lymph nodes. Bones/joints: The spine demonstrates mild degenerative changes. Soft tissues: There is soft tissue edema demonstrated in the abdominal wall, flanks and buttock regions consistent with anasarca. IMPRESSION: 1. No pulmonary embolus. 2. No aortic aneurysm or dissection. 3. Anasarca. 4. No acute pulmonary parenchymal findings. Electronically signed by: Avni Ramires On 04/02/2018 18:18:59 PM
[2018-04-02 20:43] LABS: MB/CK RELATIVE INDEX 1.77 (< OR =4); TROPONIN I 0.22 NG/ML (< 0.10)
--- NOTE | 2018-04-02 21:20 | ECGEPIP ---
Stationary ECG Study [facility] - ED Test Date: 2018-04-02 Pat Name: MARIANA SMITH Department: Room: - Gender: F Baby Nurse: : [id number] Requested By: Antonina Hazel Order Number: [id number] Reading MD: Shaq Tenorio Measurements Intervals Rattan Rate: 67 P: 55 IA: 155 QRS: -19 QRSD: 105 T: 128 QT: 405 QTc: 428 Interpretive Statements SINUS RHYTHM POSSIBLE ANTERIOR MYOCARDIAL INFARCTION, PROBABLY OLD MODERATE T-WAVE ABNORMALITY, CONSIDER LATERAL ISCHEMIA SIMILAR TO 03/07/18 Electronically Signed On 04-02-2018 21:19:55 EST by Shaq Tenorio
[2018-04-02 21:37] VITALS: BP 172/68
--- NOTE | 2018-04-03 12:33 | ED PDOC ---
Post-Departure Follow-Up estiven san faxed formal report of cta chest for fu Angie St MD Apr 03, 2018 12:33
== END 2018-04-02 21:38 | disposition home or self-care (01) ==
LOC: M ED 15:15
DX: R07.89 Other chest pain (principal); I10 Essential (primary) hypertension; E11.9 Type 2 diabetes mellitus without complications; I25.10 Atherosclerotic heart disease of native coronary artery without angina pectoris; E07.9 Disorder of thyroid, unspecified; E78.5 Hyperlipidemia, unspecified; I25.2 Old myocardial infarction; Z79.899 Other long term (current) drug therapy; Z79.4 Long term (current) use of insulin; Z88.1 Allergy status to other antibiotic agents; Z87.891 Personal history of nicotine dependence; Z98.61 Coronary angioplasty status
CPT/HCPCS: 36415; 71045; 71275; 80048; 80076; 82550; 82553; 83690; 83880; 84443; 84484; 85014; 85018; 85025; 85610; 87040; 93005; 93041; 94760; 99285; Q9967

== ENCOUNTER → 2018-04-02 | Outpatient (CLI) | payer MEDICARE ==
[2018-04-02 13:17] LABS: HEMATOCRIT 26.9 % (36.0-47.0); HEMOGLOBIN 7.7 g/dl (12.0-15.5)
== END ==
LOC: M WUC 09:42
PROVIDERS: ATTEND Family Medicine
DX: D50.0 Iron deficiency anemia secondary to blood loss (chronic) (principal)

== ENCOUNTER → 2018-04-04 | Outpatient (CLI) | payer MEDICARE ==
--- NOTE | 2018-04-04 13:33 | REP ---
TRIPLE PHASE BONE SCAN OF THE FEMURS AND KNEES: Following the intravenous administration of 22 millicuries of technetium 99M MDP patient's thigh regions are imaged in the flow phase on the anterior and posterior projections, showing symmetrical blood flow. Immediate blood pool and 2 hour delayed images are performed of the femurs and knees in multiple projections. There is no abnormal blood pooling. No abnormal uptake is seen in either femur. There is mild increased uptake in each patella superiorly along the patellofemoral joints consistent with mild bilateral patellofemoral arthritic change. No other abnormalities are seen. IMPRESSION: No abnormal femoral uptake. Mild arthritic uptake at the patellofemoral joints bilaterally. Electronically Signed by Tan Jaramillo MD 04/04/2018 01:45 P
== END ==
LOC: M RAD 09:37
PROVIDERS: ATTEND Physician Assistant
DX: M79.652 Pain in left thigh (principal); M17.0 Bilateral primary osteoarthritis of knee
CPT/HCPCS: 78315; A9503

== ENCOUNTER → 2018-04-08 | Outpatient (CLI) | payer MEDICARE ==
[2018-04-08 12:37] LABS: BASO # 0.1 10^3/uL (0.0-0.2); BASO % 1.1 % (0.0-1.0); EOS # 0.3 10^3/uL (0.0-0.50); EOS % 5.4 % (0.0-3.0); HEMATOCRIT 26.1 % (36.0-47.0); HEMOGLOBIN 7.3 g/dl (12.0-15.5); LYMPH # 1.8 10^3/uL (1.5-4.5); MEAN CORPUSCULAR HEMOGLOBIN 21.3 pg (27.0-33.0); MEAN CORPUSCULAR VOLUME 76.3 fl (80.0-96.0); MONO # 0.6 10^3/uL (0.0-0.8); MONO % 10.2 % (0.0-5.0); NEUTROPHILS # 2.8 10^3/uL (1.8-7.7); NEUTROPHILS % 49.9 % (36.0-66.0); PLATELET COUNT, AUTOMATED 214 10^3/uL (150-450); RED BLOOD COUNT 3.42 10^6/uL (4.00-5.40); WHITE BLOOD COUNT 5.6 10^3/uL (4.0-10.0)
[2018-04-08 12:51] LABS: ALBUMIN 3.4 GM/DL (3.2-5.2); ALT/SGPT 23 U/L (12-78); BILIRUBIN,TOTAL 1.1 MG/DL (0.2-1.0); BLOOD UREA NITROGEN 13 MG/DL (7-18); CALCIUM LEVEL 8.7 MG/DL (8.8-10.2); CARBON DIOXIDE LEVEL 20 MEQ/L (21-32); CHLORIDE LEVEL 110 MEQ/L (98-107); CREATININE FOR GFR 0.78 MG/DL (0.55-1.30); GLOMERULAR FILTRATION RATE > 60.0 (>45); GLUCOSE, FASTING 176 MG/DL (70-100); IRON (FE) 25 UG/DL (50-170); SODIUM LEVEL 141 MEQ/L (136-145); TOTAL IRON BINDING CAPACITY 505 UG/DL (250-450); TOTAL PROTEIN 6.9 GM/DL (6.4-8.2)
[2018-04-08 12:59] LABS: FOLATE 16.4 NG/ML
[2018-04-08 14:57] LABS: VITAMIN B12 LEVEL 646 PG/ML
[2018-04-09 09:09] LABS: HEPATITIS B SURFACE ANTIGEN NEGATIVE (NEGATIVE)
[2018-04-09 09:35] LABS: HEPATITIS C VIRUS ABY INDEX 0.1 INDEX (<0.8)
[2018-04-09 09:36] LABS: HEPATITIS B CORE ANTIBODY IGM NEGATIVE (NEGATIVE)
[2018-04-09 09:39] LABS: HEPATITIS A ANTIBODY IGM NEGATIVE (NEGATIVE)
[2018-04-11 00:07] LABS: ANCA-ATYPICAL <1:20 titer (Neg:<1:20); ANTI-MITOCHONDRIAL ANTIBODY <20.0 Units (0.0-20.0); ANTINUCLEAR ANTIBODIES DIRECT Negative (Negative); CYTOPLASMIC NEUTROP AB ANCA-C <1:20 titer (Neg:<1:20); PERINUCLEAR AB ANCA-P <1:20 titer (Neg:<1:20); TISSUE TRANSGLUTAMINASE IgA <2 U/mL (0-3)
== END ==
LOC: M LAB 11:44
PROVIDERS: ATTEND Internal Medicine Gastroenterology
DX: D64.9 Anemia, unspecified (principal); K74.60 Unspecified cirrhosis of liver

== ENCOUNTER → 2018-04-16 | Outpatient (REF) | payer MEDICARE ==
[~2018-04-16] MED LIST changes: +FERR325T3 PO; +LOSA100T50 PO
[2018-04-16 13:22] LABS: HEMATOCRIT 25.2 % (36.0-47.0); HEMOGLOBIN 7.1 g/dl (12.0-15.5); MEAN CORPUSCULAR HEMOGLOBIN 20.8 pg (27.0-33.0); MEAN CORPUSCULAR HGB CONC 28.2 g/dl (32.0-36.5); MEAN CORPUSCULAR VOLUME 73.7 fl (80.0-96.0); PLATELET COUNT, AUTOMATED 283 10^3/uL (150-450); RED BLOOD COUNT 3.42 10^6/uL (4.00-5.40); WHITE BLOOD COUNT 7.2 10^3/uL (4.0-10.0)
[2018-04-16 13:48] LABS: BLOOD UREA NITROGEN 13 MG/DL (7-18); CALCIUM LEVEL 8.7 MG/DL (8.8-10.2); CARBON DIOXIDE LEVEL 23 MEQ/L (21-32); CHLORIDE LEVEL 113 MEQ/L (98-107); CREATININE FOR GFR 0.72 MG/DL (0.55-1.30); GLOMERULAR FILTRATION RATE > 60.0 (>45); GLUCOSE, FASTING 54 MG/DL (70-100); POTASSIUM SERUM 3.7 MEQ/L (3.5-5.1); SODIUM LEVEL 145 MEQ/L (136-145)
== END ==
LOC: M SFHCPLAZ 11:22
PROVIDERS: ATTEND Family Medicine
DX: D50.0 Iron deficiency anemia secondary to blood loss (chronic) (principal); R60.9 Edema, unspecified
CPT/HCPCS: 36415; 80048; 85027; G0463

== ENCOUNTER 2018-04-17 07:00 | Outpatient (CLI) | payer MEDICARE ==
[~2018-04-17] VITALS: Ht 162.6 cm; Wt 95.4 kg
[~2018-04-17 07:00] MED LIST changes: -FERR325T3 PO; -LOSA100T50 PO
[2018-04-17 07:15] VITALS: BP 120/61
[2018-04-17 09:15] VITALS: BP 143/61
[2018-04-17 10:14] VITALS: BP 155/67
[2018-04-17 11:14] VITALS: BP 142/64
[2018-04-17 12:15] VITALS: BP 145/65
[2018-04-17 12:47] VITALS: BP 189/72
== END 2018-04-17 13:00 | disposition home or self-care (01) ==
LOC: M INFU 07:00
PROVIDERS: ATTEND Family Medicine
DX: D64.9 Anemia, unspecified (principal); Z79.899 Other long term (current) drug therapy
CPT/HCPCS: 36430; 86850; 86900; 86901; 86920; P9016

== ENCOUNTER 2018-04-23 11:16 | Observation (INO) | payer MEDICARE ==
[~2018-04-23] VITALS: Ht 162.6 cm; Wt 207.0 kg
[2018-04-23] MEDS ORDERED: LOSA100T50 PO (11:36)
[2018-04-23] MEDS ORDERED: FARX1TAB3 PO (11:36)
[2018-04-23 12:50] LABS: BASO # 0.1 10^3/uL (0.0-0.2); BASO % 1.3 % (0.0-1.0); EOS # 0.3 10^3/uL (0.0-0.50); EOS % 5.7 % (0.0-3.0); HEMATOCRIT 28.7 % (36.0-47.0); HEMOGLOBIN 8.4 g/dl (12.0-15.5); LYMPH # 1.5 10^3/uL (1.5-4.5); LYMPH % 26.4 % (24.0-44.0); MEAN CORPUSCULAR HEMOGLOBIN 21.9 pg (27.0-33.0); MEAN CORPUSCULAR HGB CONC 29.3 g/dl (32.0-36.5); MEAN CORPUSCULAR VOLUME 74.7 fl (80.0-96.0); MONO # 0.6 10^3/uL (0.0-0.8); MONO % 9.8 % (0.0-5.0); NEUTROPHILS # 3.2 10^3/uL (1.8-7.7); NEUTROPHILS % 56.4 % (36.0-66.0); PLATELET COUNT, AUTOMATED 190 10^3/uL (150-450); RED BLOOD COUNT 3.84 10^6/uL (4.00-5.40); WHITE BLOOD COUNT 5.6 10^3/uL (4.0-10.0)
[2018-04-23 12:59] LABS: ALBUMIN 3.1 GM/DL (3.2-5.2); ALT/SGPT 21 U/L (12-78); BILIRUBIN,TOTAL 0.9 MG/DL (0.2-1.0); BLOOD UREA NITROGEN 11 MG/DL (7-18); CALCIUM LEVEL 8.4 MG/DL (8.8-10.2); CARBON DIOXIDE LEVEL 23 MEQ/L (21-32); CHLORIDE LEVEL 112 MEQ/L (98-107); CK-MB VALUE MASS < 1.0 NG/ML (<3.6); CPK CREATINE PHOSPHOKINASE 40 U/L (26-192); CREATININE FOR GFR 0.79 MG/DL (0.55-1.30); GLOMERULAR FILTRATION RATE > 60.0 (>45); GLUCOSE, FASTING 134 MG/DL (70-100); POTASSIUM SERUM 3.8 MEQ/L (3.5-5.1); SODIUM LEVEL 145 MEQ/L (136-145); TOTAL PROTEIN 6.5 GM/DL (6.4-8.2); TROPONIN I 0.11 NG/ML (< 0.10)
--- NOTE | 2018-04-23 13:50 | REP ---
Clinical: Near-syncopal episode . Comparison: 04/02/2018 . Findings: The mediastinum and cardiac silhouette are stable and within normal limits for portable technique. The lung lloyd are clear without acute consolidation, effusion, or pneumothorax. Skeletal structures are intact. Impression: No acute cardiopulmonary process appreciated. Electronically Signed by Zbigniew Davis MD 04/23/2018 01:42 P
[2018-04-23] MEDS ORDERED: AMLO5TAB6 PO (14:59)
[2018-04-23 16:00] VITALS: BP 165/73
[2018-04-23] MEDS: PANTOPRAZOLE 40MG INJ (PROTONIX) (C9113) IV SCH (16:10)
--- NOTE | 2018-04-23 16:21 | HPE ---
DATE OF ADMISSION: 04/23/2018 This is a 68-year-old female with a past medical history of coronary artery disease, status post myocardial infarction, status post stent placement, hypertension, history of upper gastrointestinal bleed with multiple transfusions monthly, Dr. Zambrano has been following the patient as her GI doctor, history of diabetes, hyperlipidemia, hypothyroidism, who presents to the emergency room with near syncopal event after eating breakfast this morning. When she came to the emergency room, she was found to have a hemoglobin of 8.1 and she normally was running between 13 and 14 just as early as December of this year. She was actually given 2 units of packed red blood cells on the of this month and only went up approximately 1.3 grams, which means she is definitely losing blood. She does not complain of black/tarry stools; however, she is guaiac positive. Apparently, Dr. Zambrano has been discussing with her and has an appointment with him tomorrow to see if they were going to do pill camera to scope her entire intestine to see if there was a site for a slow bleed. At this time, the patient denies any chest pain, shortness of breath, abdominal pain, nausea, vomiting, palpitations, or headache. She will be admitted for blood transfusion. She has already been typed and crossed for 2 units for symptomatic anemia. PAST MEDICAL HISTORY: Again, past medical history of: 1. Fibromyalgia. 2. History of coronary artery disease, status post myocardial infarction, status post stent placement. 3. History of hypertension. 4. History of upper gastrointestinal bleed. 5. Diabetes. 6. Hyperlipidemia. 7. Hypothyroidism. 8. Chronic diastolic heart failure. 9. Liver cirrhosis. PAST SURGICAL HISTORY: 1. Open cholecystectomy. 2. Hysterectomy. ALLERGIES: She has drug allergies to QUINOLONES. FAMILY HISTORY: Noncontributory. SOCIAL HISTORY: The patient denies tobacco, alcohol, or illicit drugs. MEDICATIONS: She takes at home: - amlodipine 5 mg by mouth daily - atorvastatin 20 mg by mouth daily - Coreg 12.5 mg by mouth twice a day - insulin aspart 10 units subcutaneous before food - insulin detemir 40 units subcutaneously twice a day - isosorbide mononitrate 30 mg by mouth daily - Synthroid 25 mcg by mouth daily - losartan 100 mg by mouth daily - metformin 1000 mg by mouth twice a day - pantoprazole 40 mg by mouth daily - potassium chloride 10 mEq by mouth twice a day - sucralfate 1 gram by mouth twice a day - tizanidine 4 mg by mouth at bedtime REVIEW OF SYSTEMS: Negative for all ten major systems except what is mentioned in the history of present illness. PHYSICAL EXAMINATION: VITAL SIGNS: Blood pressure 117/57, heart rate is 53 and regular, respiratory rate is 18, temperature 97.2, oxygen saturation is 100% on room air. Head is atraumatic, normocephalic. Neck is supple with no jugular venous distention (JVD). Lungs clear to auscultation. S1, S2 audible. No murmurs appreciated. Abdomen is soft. Positive bowel sounds. No pedal edema. Skin is intact. Neurologic examination, the patient is awake, alert and oriented times three. LABORATORIES: WBC 5.6, hemoglobin 8.4, hematocrit 27, platelets 190,000. Sodium 145, potassium 3.8, chloride 112, CO2 of 23, BUN 11, creatinine 0.79, glucose 134. Troponin 0.11. IMPRESSION: 1. Symptomatic anemia. 2. Near syncope. PLAN: The patient is to be admitted to the medical/surgical floor with tele monitoring. I will get a second troponin to rule out acute coronary syndrome, which I doubt she has. We will give her 2 units of packed red blood cells and I will call Dr. Zambrano to see if he wants to do the camera scope during this hospitalization or on hospital discharge tomorrow if she is in good disposition to followup with her outpatient visit with him tomorrow afternoon. I will continue all of her preadmission medications and we will continue her care on the medical/surgical floor. GLORIA
[2018-04-23] MEDS: HumaLOG INSULIN (NovoLOG) PER UNIT SC SCH (17:28)
[2018-04-23] MEDS ORDERED: traMADol 50 MG TAB PO ONE (19:00)
[2018-04-23] MEDS: TICAGRELOR 90 MG TABLET (BRILINTA) PO SCH (20:53)
[2018-04-23] MEDS: metFORMIN XR 500MG TAB *GLUCOPHAGE XR PO SCH (20:53)
[2018-04-23] MEDS: SUCRALFATE 1 GM TAB PO SCH (20:53)
[2018-04-23] MEDS: tiZANidine 4 MG TAB PO SCH (20:54)
[2018-04-23] MEDS: CARVedilol 12.5 MG TAB PO SCH (20:54)
[2018-04-23] MEDS: POTASSIUM CHLORIDE 10 MEQ SR TABLET PO SCH (20:54)
[2018-04-23] MEDS: LEVEMIR (INSULIN DETEMIR) 1 UNITS/0.01ML SC SCH (20:55)
--- NOTE | 2018-04-23 21:06 | ECGEPIP ---
Stationary ECG Study [facility] - ED Test Date: 2018-04-23 Pat Name: MARIANA SMITH Department: Room: - Gender: F Kiln Firer: CATRACHITA : 1950 Requested By: Shaq Cleveland Order Number: [id number] Reading MD: Antonina Hazel Measurements Intervals Morrill Rate: 52 P: 34 VA: 154 QRS: 114 QRSD: 111 T: 96 QT: 479 QTc: 448 Interpretive Statements SINUS BRADYCARDIA MARKED RIGHT AXIS DEVIATION MODERATE INTRAVENTRICULAR CONDUCTION DELAY ST DEVIATION AND MODERATE T-WAVE ABNORMALITY, CONSIDER LATERAL ISCHEMIA DECREASED RATE 04/02/18 Electronically Signed On 04-23-2018 21:06:11 EST by Antonina Hazel
[2018-04-24 00:35] VITALS: BP 110/54
[2018-04-24] MEDS: PANTOPRAZOLE 40MG INJ (PROTONIX) (C9113) IV SCH ×2 (04:03→14:17)
[2018-04-24] MEDS: LEVOTHYROXINE 25MCG TABLET (0.025MG) PO SCH (05:40)
[2018-04-24 06:00] VITALS: BP 141/64
[2018-04-24 06:01] LABS: BASO # 0.1 10^3/uL (0.0-0.2); BASO % 1.1 % (0.0-1.0); EOS # 0.4 10^3/uL (0.0-0.50); EOS % 5.4 % (0.0-3.0); HEMATOCRIT 30.5 % (36.0-47.0); HEMOGLOBIN 9.4 g/dl (12.0-15.5); LYMPH # 2.6 10^3/uL (1.5-4.5); MEAN CORPUSCULAR HEMOGLOBIN 23.3 pg (27.0-33.0); MEAN CORPUSCULAR HGB CONC 30.8 g/dl (32.0-36.5); MEAN CORPUSCULAR VOLUME 75.5 fl (80.0-96.0); MONO # 0.9 10^3/uL (0.0-0.8); MONO % 13.7 % (0.0-5.0); NEUTROPHILS # 2.5 10^3/uL (1.8-7.7); NEUTROPHILS % 39.5 % (36.0-66.0); PLATELET COUNT, AUTOMATED 164 10^3/uL (150-450); RED BLOOD COUNT 4.04 10^6/uL (4.00-5.40); WHITE BLOOD COUNT 6.4 10^3/uL (4.0-10.0)
[2018-04-24 06:23] LABS: BLOOD UREA NITROGEN 15 MG/DL (7-18); CALCIUM LEVEL 8.1 MG/DL (8.8-10.2); CARBON DIOXIDE LEVEL 23 MEQ/L (21-32); CHLORIDE LEVEL 113 MEQ/L (98-107); CREATININE FOR GFR 0.94 MG/DL (0.55-1.30); GLOMERULAR FILTRATION RATE > 60.0 (>45); GLUCOSE, FASTING 76 MG/DL (70-100); POTASSIUM SERUM 3.9 MEQ/L (3.5-5.1); SODIUM LEVEL 144 MEQ/L (136-145)
[2018-04-24] MEDS: HumaLOG INSULIN (NovoLOG) PER UNIT SC SCH ×3 (07:30→16:38)
[2018-04-24] MEDS: POTASSIUM CHLORIDE 10 MEQ SR TABLET PO SCH ×2 (08:37→20:48)
[2018-04-24] MEDS: metFORMIN XR 500MG TAB *GLUCOPHAGE XR PO SCH ×2 (08:39→20:47)
[2018-04-24] MEDS: TICAGRELOR 90 MG TABLET (BRILINTA) PO SCH (08:40)
[2018-04-24] MEDS: SUCRALFATE 1 GM TAB PO SCH ×2 (08:40→20:47)
[2018-04-24] MEDS: ISOSORBIDE MON. (IMDUR) 30 MG XR TAB PO SCH (08:42)
[2018-04-24 08:43] LABS: FERRITIN 11 NG/ML (8-252); IRON (FE) 26 UG/DL (50-170); PERCENT SATURATION 6.4 % (13.2-45.0); TOTAL IRON BINDING CAPACITY 407 UG/DL (250-450)
[2018-04-24] MEDS: ATORVASTATIN 20 MG TAB PO SCH (08:43)
[2018-04-24] MEDS: CARVedilol 12.5 MG TAB PO SCH ×2 (08:43→20:49)
[2018-04-24] MEDS: LOSARTAN 50 MG TAB PO SCH (08:44)
[2018-04-24] MEDS: amLODIPine 5 MG TAB PO SCH (08:45)
[2018-04-24] MEDS: LEVEMIR (INSULIN DETEMIR) 1 UNITS/0.01ML SC SCH ×2 (08:46→20:49)
[2018-04-24] MEDS ORDERED: PANTOPRAZOLE 40MG TAB (PROTONIX) PO SCH (09:00)
[2018-04-24 14:00] VITALS: BP 135/68
--- NOTE | 2018-04-24 14:44 | REP ---
Tagged red blood cell GI bleeding scan: History: Symptomatic anemia with GI bleeding. Technique: 27.4 mCi technetium 99m tagged RBC is administered (UltraTag kit). Sequential anterior abdominal images and anterior flow study are acquired. Total imaging interval of 60 minutes. Scintigraphic findings: The anterior flow study shows an area of increased uptake in the left central abdomen related to the abdominal venous collateral veins in this location on T study. This implies portal hypertension. It is unchanged from the comparison nuclear study dated August 13, 2017. Sequential 5-minute images show no evidence of gastrointestinal bleeding localization. Cine images are unremarkable. Impression: Evidence of portal hypertension related collaterals in the abdomen unchanged. No focus of localized gastrointestinal bleeding seen. Electronically Signed by Frantz Ruiz MD 04/24/2018 04:31 P
--- NOTE | 2018-04-24 17:10 | IPNPDOC ---
Text Note Date of Service The patient was seen on 04/24/18. NOTE SUBJECTIVE: Patient is seen and examined at bedside. She states that her does have resolved. She denies any shortness of breath, dizziness, palpitations, lightheadedness, or overt bleeding in her stool. She would like to go home, however she has nuclear medicine scan scheduled for noon to assess for GI bleeding. OBJECTIVE: Vitals: See below General: Elderly female, in no acute distress HEENT: Mucous membranes are moist, conjunctiva are slightly pale, sclerae are anicteric Neck: No JVD Heart: Regular rate and rhythm; no murmurs, gallops or rubs Lungs: Clear to auscultation bilaterally; no wheezes, rhonchi, rales Abdomen: Normoactive bowel sounds, nontender to palpation Extremities: No clubbing cyanosis or edema bilaterally ASSESSMENT: 68-year-old female with symptomatic anemia, question GI bleed. Also on Brillinta secondary to drug eluding stent with ACS, placed 07/12. PLAN: 1. Symptomatic Anemia. Likely secondary to GI bleed. Dr. Sheffield from [facility] o[facility]ology was consulted, we appreciate his help. Patient is status post 2 units packed RBCs. Her symptoms have resolved. Hemoglobin this morning was 9.4. 2. Near syncope. Patient is status post 2 units of packed red blood cells. Her symptoms have resolved. 3. Drug eluding stent, placed 07/12 after an NSTEMI with ACS. Patient is on Brillinta. I contacted patient's scan coordinator, Dr. Mejia, who recommended holding the Brillinta and giving the patient 81 mg of aspirin daily instead. 4. Fibromyalgia. Continue Zanaflex. 5. Hypertension. Continue amlodipine, Imdur, Cozaar, Coreg 6. Diabetes. Metformin, insulin 10 units before meals and Levemir 40 units twice a day 7. Hyperlipidemia. Continue statin 8. Hypothyroidism. Continue levothyroxine 9. Chronic diastolic heart failure. Stable 10. Liver cirrhosis. Patient does have some degree of portal hypertension, this may be contributing to her GI bleed. DVT prophylaxis: Teds and sequentials Disposition: Potential discharge in the next 24-48 hours, pending stabilization of her hemoglobin. VS,Fishbone, I+O VS, Fishbone, I+O Laboratory Tests 04/24/18 05:33 Red Blood Count 4.04, Mean Corpuscular Volume 75.5 L, Mean Corpuscular Hemoglobin 23.3 L, Mean Corpuscular Hemoglobin Concent 30.8 L, Red Cell Distribution Width 19.4 H, Neutrophils (%) (Auto) 39.5, Lymphocytes (%) (Auto) 40.0, Monocytes (%) (Auto) 13.7 H, Eosinophils (%) (Auto) 5.4 H, Basophils (%) (Auto) 1.1 H, Neutrophils # (Auto) 2.5, Lymphocytes # (Auto) 2.6, Monocytes # (Auto) 0.9 H, Eosinophils # (Auto) 0.4, Basophils # (Auto) 0.1, Calcium Level 8.1 L Vital Signs Date Time Temp Pulse Resp B/P (MAP) Pulse Ox O2 Delivery O2 Flow Rate FiO2 04/24/18 08:45 66 194/81 04/24/18 06:00 98.4 20 96 04/23/18 15:16 Room Air I&O- Last 24 Hours up to 6 AM 04/24/18 06:00 Intake Total 1405 ml Output Total 0 ml Balance 1405 ml GME ATTESTATION GME ATTESTATION My faculty preceptor for this patient encounter was physically present during the encounter and was fully available. All aspects of the patient interview, examination, medical decision making process, and medical care plan development were reviewed and approved by the faculty preceptor. The faculty preceptor is aware and concurs with the plan as stated in the body of this note and will attest to such by his/her cosignature. JOSHUA DUMONT DO Apr 24, 2018 15:54
[2018-04-24] MEDS: tiZANidine 4 MG TAB PO SCH (20:48)
[2018-04-24] MEDS ORDERED: traMADol 50 MG TAB PO SCH (21:00)
[2018-04-24 22:00] VITALS: BP 156/70
[2018-04-25] VITALS (7 sets, daily range): BP systolic 122–138; BP diastolic 58–70
[2018-04-25] MEDS: PANTOPRAZOLE 40MG INJ (PROTONIX) (C9113) IV SCH (03:42)
[2018-04-25] MEDS ORDERED: GLUCAGON FOR INJ 1 MG VIAL (J1610) SC PRN ×2 (04:30)
[2018-04-25] MEDS ORDERED: DEXTROSE 50% 50 ML SYRINGE IV PRN ×2 (04:30)
[2018-04-25] MEDS ORDERED: GLUCOSE 4 GM CHEW TABLET PO PRN ×2 (04:30)
[2018-04-25] MEDS: LEVOTHYROXINE 25MCG TABLET (0.025MG) PO SCH (05:36)
[2018-04-25] MEDS ORDERED: IRON SUCROSE 500 MG in NS 250 ML IV ONE (06:00)
[2018-04-25] MEDS: HumaLOG INSULIN (NovoLOG) PER UNIT SC SCH ×2 (07:30→12:00)
[2018-04-25] MEDS ORDERED: ASPI81TAEC PO (08:52)
[2018-04-25] MEDS ORDERED: ASPIRIN 81 MG ENTERIC TAB PO SCH (09:00)
[2018-04-25] MEDS ORDERED: LEVEMIR (INSULIN DETEMIR) 1 UNITS/0.01ML SC SCH (09:00)
[2018-04-25] MEDS: LOSARTAN 50 MG TAB PO SCH (09:01)
[2018-04-25] MEDS: ISOSORBIDE MON. (IMDUR) 30 MG XR TAB PO SCH (09:02)
[2018-04-25] MEDS: SUCRALFATE 1 GM TAB PO SCH (09:02)
[2018-04-25] MEDS: ATORVASTATIN 20 MG TAB PO SCH (09:02)
[2018-04-25] MEDS: CARVedilol 12.5 MG TAB PO SCH (09:02)
[2018-04-25] MEDS: amLODIPine 5 MG TAB PO SCH (09:03)
[2018-04-25] MEDS: POTASSIUM CHLORIDE 10 MEQ SR TABLET PO SCH (09:03)
[2018-04-25 09:13] LABS: HEMOGLOBIN 10.1 g/dl (12.0-15.5); MEAN CORPUSCULAR HEMOGLOBIN 23.1 pg (27.0-33.0); MEAN CORPUSCULAR HGB CONC 30.6 g/dl (32.0-36.5); MEAN CORPUSCULAR VOLUME 75.3 fl (80.0-96.0); PLATELET COUNT, AUTOMATED 176 10^3/uL (150-450); RED BLOOD COUNT 4.38 10^6/uL (4.00-5.40); WHITE BLOOD COUNT 5.4 10^3/uL (4.0-10.0)
[2018-04-25] MEDS ORDERED: FERR325T3 PO (09:43)
[2018-04-25 09:47] LABS: BLOOD UREA NITROGEN 14 MG/DL (7-18); CARBON DIOXIDE LEVEL 22 MEQ/L (21-32); CHLORIDE LEVEL 109 MEQ/L (98-107); CREATININE FOR GFR 0.83 MG/DL (0.55-1.30); GLOMERULAR FILTRATION RATE > 60.0 (>45); GLUCOSE, FASTING 215 MG/DL (70-100); SODIUM LEVEL 141 MEQ/L (136-145)
--- NOTE | 2018-04-25 15:40 | DSES ---
DATE OF ADMISSION: 04/23/2018 DATE OF DISCHARGE: 04/25/2018 PRIMARY CARE PROVIDER: Dr. Mei CONSULTANTS: Dr. Sheffield of gastroenterology. PROCEDURES: 1. Nuclear medicine GI bleed scan. 2. Transfusion of 2 units of packed red blood cells. 3. Venofer transfusion. HOSPITAL COURSE: This is a 68-year-old female who was apparently having shortness of breath on 04/23/2018, prompting her to go to the emergency room (ER), where she was found to have a hemoglobin of 8.1. She had previously been seen by Dr. Zambrano for both liver psoriasis and upper and lower endoscopies. She has had multiple transfusions in the past. She was admitted to the medical/surgical floor with telemetry. She was given 2 units of blood. On 04/24/2018 she had a nuclear medicine scan to look for active bleeding, which was negative. She was feeling quite tired yesterday but on the morning of 04/25/2018 was deemed safe for discharge. She also had a Venofer infusion on the morning of 04/25/2018 due to low iron and low ferritin. I also discussed with her radio division lieutenant, Dr. Mejia, on 04/16/2018, potentially stopping her Brilinta, as she is continuing to have gastrointestinal (GI) bleeds. She did have an aut-YS-geqmwlqzk myocardial infarction (NSTEMI) in June 2017, for which a drug-eluting stent was placed. In the case of [employer] (ACS), typically Brilinta should be continued for at least 12 months; however, after much discussion and evaluation of the patient's clinical picture, it was decided that the Brilinta should be held for now and the patient started on aspirin 81 mg daily. The patient will followup with Dr. Mejia within the next week to further evaluate. SUBJECTIVE: The patient is seen, examined at bedside. She wants to go home. She states that her symptoms have resolved. She denies any shortness of breath, dizziness, palpitations, lightheadedness, or overt bleeding in her stool. OBJECTIVE: VITAL SIGNS: Temperature 98.0, pulse 56 and regular, respiratory rate 18, blood pressure 130/65, pulse oximetry is 100% on room air. GENERAL: Elderly female in no acute distress, sitting up in bed. HEENT: Mucous membranes are moist. Conjunctivae are less pale than yesterday. Sclerae are anicteric. NECK: No jugular venous distention (JVD). Supple and no masses. HEART: Regular rate and rhythm. No murmurs, gallops, or rubs. LUNGS: Clear to auscultation bilaterally. No wheezes, rhonchi, or rales. ABDOMEN: Normoactive bowel sounds, nontender to palpation. EXTREMITIES: No clubbing, cyanosis, or edema bilaterally. NEUROLOGIC: No focal deficits were noted. Muscle strength is 5/5 bilaterally. Sensation is intact. Cranial nerves II-XII are grossly intact. PSYCHIATRIC: Appropriate mood and affect. LABORATORY DATA: CBC: WBC 5.8, hemoglobin 10.1, hematocrit 33.0, platelets 176. Chemistry: Sodium 141, potassium 4.0, chloride 109, carbon dioxide 22, anion gap 10, BUN 14, creatinine 0.83, fasting glucose 215, calcium 8.0. IMAGING STUDIES: Chest x-ray done 04/23/2018 showed no acute cardiopulmonary process. Nuclear medicine GI bleed scan done 04/24/2018 showed evidence of portal hypertension related to collaterals in the abdomen, which is unchanged. No focus of localized GI bleeding seen. DISCHARGE DIAGNOSES: 1. Symptomatic anemia likely due to GIB and being of antiplatelet agent 2. Presyncopal episode 3. Severe iron deficiency ASSESSMENT: This is a 68-year-old female who was admitted with symptomatic anemia and potential gastrointestinal (GI) bleed. She was also on Brinlinta secondary to drug-eluting stent with ACS that was placed June 2017. PLAN: 1. Symptomatic anemia, likely secondary to GI bleed. Dr. Sheffield had been consulted, and the patient will followup with Dr. Zambrano within the next week for capsule endoscopy. She is status post 2 units of packed red blood cell (RBC) and 1 unit of Venofer. Her symptoms have resolved. Hemoglobin this morning was 10.1. I have added oral iron supplementation to the patient's medication list 2. Near-syncope. The patient is status post 2 units of packed red blood cells, and her symptoms have resolved. Nuclear medicine scan was negative. 3. Drug-eluting stent placed June 2017 after an nmq-QX-hddbmueen myocardial infarction (NSTEMI) with acute coronary syndrome. The patient was on Brilinda, and I discussed this with Dr. Mejia who recommended holding the Brilinta and giving the patient 81 mg of aspirin daily as needed. 4. Fibromyalgia. Continue Zanaflex 5. Hypertension. Continue amlodipine, Imdur, Cozaar, and Coreg. 6. Diabetes. Continue metformin and the patient's home insulin. 7. Hyperlipidemia. Continue statin. 8. Hypothyroidism. Continue levothyroxine 9. Chronic diastolic heart failure, stable. 10. Liver cirrhosis. Patient does have portal hypertension as seen on the nuclear medicine scan, which may be contributing to her GI bleed. The patient will followup with Dr. Zambrano in the office next week. DISCHARGE MEDICATIONS: - aspirin 81 mg by mouth daily - ferrous sulfate 325 mg by mouth daily - amlodipine 5 mg by mouth daily - atorvastatin 20 mg by mouth daily - carvedilol 12.5 mg by mouth twice a day - Farxiga 10 mg by mouth daily - NovoLog 10 units subcutaneous before meals - Levemir 40 units subcutaneous twice a day - isosorbide mononitrate 30 mg by mouth daily - Synthroid 25 mcg by mouth daily - losartan 100 mg by mouth daily - Metformin 1000 mg by mouth twice a day - pantoprazole 40 mg by mouth daily - potassium chloride 10 mEq by mouth twice a day - Carafate 1 gram by mouth twice a day - tizanidine 4 mg by mouth at bedtime Stopped medications: Brilinta 90 mg by mouth twice a day DISPOSITION: Stable. DIET: Consistent carbohydrate. ACTIVITY: As tolerated. FOLLOWUP: 1. With Dr. Zambrano within the next week for capsule endoscopy. 2. Dr. Mejia within the next week to evaluate anticoagulation in the setting of a drug-eluting stent placed in June 2017 for NSTEMI with ACS. 3. With primary care provider within the next 1-2 weeks. My faculty preceptor for this patient encounter was physically present during the encounter and was fully available. All aspects of the patient interview, examination, medical decision making process, and medical care plan development were reviewed and approved by the faculty preceptor. The faculty preceptor is aware and concurs with the plan as stated in the body of this note and will attest to such by his/her co-signature. GLORIA
== END 2018-04-25 12:30 | disposition home or self-care (01) ==
LOC: M ED 11:16 → M ED INP 14:27 → M MSPAV 16:00
PROVIDERS: ADMIT Internal Medicine; ATTEND Internal Medicine Nephrology
DX: D50.9 Iron deficiency anemia, unspecified (principal); R55 Syncope and collapse; M79.7 Fibromyalgia; E11.9 Type 2 diabetes mellitus without complications; E78.5 Hyperlipidemia, unspecified; E03.9 Hypothyroidism, unspecified; I50.32 Chronic diastolic (congestive) heart failure; I25.10 Atherosclerotic heart disease of native coronary artery without angina pectoris; I25.2 Old myocardial infarction; Z98.61 Coronary angioplasty status; K74.69 Other cirrhosis of liver; Z88.8 Allergy status to other drugs, medicaments and biological substances; Z79.82 Long term (current) use of aspirin; Z79.899 Other long term (current) drug therapy; Z79.4 Long term (current) use of insulin; Z79.84 Long term (current) use of oral hypoglycemic drugs
CPT/HCPCS: 36415; 36430; 71045; 78278; 80048; 80053; 82550; 82553; 82728; 83550; 84484; 85025; 85027; 86850; 86900; 86901; 86920; 93005; 93041; 94760; 96375; 96376; 99285; A9560; C9113; G0378; J1756; P9016

== ENCOUNTER → 2018-05-05 | Outpatient (REF) | payer MEDICARE ==
[~2018-05-05] MED LIST changes: +FERR325T3 PO; +LOSA100T50 PO
== END ==
LOC: M SFHCPLAZ 09:46
PROVIDERS: ATTEND Family Medicine
DX: D50.0 Iron deficiency anemia secondary to blood loss (chronic) (principal); Z53.8 Procedure and treatment not carried out for other reasons

== ENCOUNTER → 2018-05-07 | Outpatient (CLI) | payer MEDICARE ==
[2018-05-07 12:00] LABS: HEMATOCRIT 33.6 % (36.0-47.0); HEMOGLOBIN 9.9 g/dl (12.0-15.5); MEAN CORPUSCULAR HGB CONC 29.5 g/dl (32.0-36.5); MEAN CORPUSCULAR VOLUME 81.6 fl (80.0-96.0); PLATELET COUNT, AUTOMATED 140 10^3/uL (150-450); RED BLOOD COUNT 4.12 10^6/uL (4.00-5.40); WHITE BLOOD COUNT 5.1 10^3/uL (4.0-10.0)
== END ==
LOC: M WUC 10:05
PROVIDERS: ATTEND Family Medicine
DX: D50.0 Iron deficiency anemia secondary to blood loss (chronic) (principal)

== ENCOUNTER → 2018-06-03 | Outpatient (CLI) | payer MEDICARE ==
[~2018-06-03] MED LIST changes: -ASPI1TAB PO; +ASPI81TA26 PO; -CITA20TA4 PO; +CITA20TA6 PO; +FURO20TA2; +HYDR-3715 PO; -NORCOTAB PO; -VALS1TAB46 PO; -VALS1TAB48 PO; +VALS1TAB66 PO; +VALS1TAB68 PO
[2018-06-03 12:50] LABS: HEMATOCRIT 39.6 % (36.0-47.0); HEMOGLOBIN 12.1 g/dl (12.0-15.5); MEAN CORPUSCULAR HEMOGLOBIN 25.4 pg (27.0-33.0); MEAN CORPUSCULAR HGB CONC 30.6 g/dl (32.0-36.5); MEAN CORPUSCULAR VOLUME 83.2 fl (80.0-96.0); PLATELET COUNT, AUTOMATED 160 10^3/uL (150-450); RED BLOOD COUNT 4.76 10^6/uL (4.00-5.40); WHITE BLOOD COUNT 8.5 10^3/uL (4.0-10.0)
== END ==
LOC: M WUC 08:37
PROVIDERS: ATTEND Family Medicine
DX: D50.0 Iron deficiency anemia secondary to blood loss (chronic) (principal)

== ENCOUNTER → 2018-06-09 | Outpatient (CLI) | payer MEDICARE ==
--- NOTE | 2018-06-09 10:46 | REP ---
MRI LUMBAR SPINE WITHOUT CONTRAST: HISTORY: Back pain. COMPARISON: 04/02/2016 Decreased signal intensity on T2-weighted images is present in the L2-3 through L5-S1 intervertebral discs. The discs are decreased in height. These findings are consistent with disc degeneration. There is no disc bulge or herniation at the L1-2 and L2-3 levels. The nerves exit the neural foramina without compression. A diffuse disc bulge is present at the L3-4 level. There is hypertrophy of the ligamenta flava and posterior articulating facets. These findings produce minimal central canal stenosis. The L3 nerves exit the neural foramina without compression. Fluid is present in the L3-4 facet joints. A diffuse disc bulge is present at the L4-5 level. There is hypertrophy of the ligamenta flava and posterior articulating facets. There are 4 mm of grade 1 spondylolisthesis of L4 on L5. These findings produce minimal canal stenosis. There is compression of the right L4 nerve in the neural foramen. The left L4 nerve exits the neural foramen without compression. A diffuse disc bulge is present at the L5-S1 level. This abuts the thecal sac. There is hypertrophy of the posterior articulating facets. The L5 nerves exit the neural foramina without compression. The conus medullaris is normal in appearance terminating at the level of the T12 vertebral body. Increased signal intensity on T2-weighted images is present in the endplates of the L5-S1 vertebral bodies. This represents degenerative change. IMPRESSION: 1. Minimal central canal stenosis at the L3-4 level secondary to disc bulge, ligamentous and facet hypertrophy. 2. Minimal central canal stenosis at the L4-5 level secondary to disc bulge, ligamentous and facet hypertrophy and grade 1 spondylolisthesis. There is compression of the right L4 nerve in the neural foramen. This is a new finding. 3. Diffuse disc bulge at the L5-S1 level. This abuts the thecal sac. There is no other significant change. Electronically Signed by Shola Rice MD 06/09/2018 10:49 A
== END ==
LOC: M RAD 06:44
PROVIDERS: ATTEND Family Medicine
DX: R20.0 Anesthesia of skin (principal); M54.5 Low back pain; M79.604 Pain in right leg

== ENCOUNTER 2018-06-10 14:47 | Emergency (ER) | payer MEDICARE ==
[~2018-06-10] VITALS: Ht 162.6 cm; Wt 93.2 kg
[~2018-06-10 14:47] MED LIST changes: -FURO20TA2
[2018-06-10] MEDS ORDERED: FURO20TA2 (15:10)
--- NOTE | 2018-06-10 16:11 | REP ---
RIGHT FEMUR, TWO VIEWS: HISTORY: Trauma. The proximal one-third of the right femur is not seen in the present radiographs. There is no acute fracture or dislocation. The knee joint space is normal in appearance. IMPRESSION: There is no acute fracture or dislocation. Electronically Signed by Shola Rice MD 06/10/2018 04:17 P
--- NOTE | 2018-06-10 16:12 | REP ---
RIGHT HIP, AP PELVIS, THREE VIEWS: HISTORY: Trauma. There is no acute fracture or dislocation. There is mild narrowing of the right hip joint space and minimal narrowing of the left hip joint space with associated sclerosis. IMPRESSION: There is no acute fracture or dislocation. Electronically Signed by Shola Rice MD 06/10/2018 04:17 P
--- NOTE | 2018-06-10 16:13 | REP ---
RIGHT KNEE, FOUR VIEWS: HISTORY: Trauma. There is no acute fracture or dislocation. The joint spaces are normal in appearance. IMPRESSION: There is no acute fracture or dislocation. Electronically Signed by Shola Rice MD 06/10/2018 04:17 P
[2018-06-10 16:46] VITALS: BP 154/70
== END 2018-06-10 17:23 | disposition home or self-care (01) ==
LOC: EDBD 14:47 → M ED 14:47
DX: S70.01XA Contusion of right hip, initial encounter (principal); S80.01XA Contusion of right knee, initial encounter; W01.0XXA Fall on same level from slipping, tripping and stumbling without subsequent striking against object, initial encounter; Y92.89 Other specified places as the place of occurrence of the external cause; E11.9 Type 2 diabetes mellitus without complications; I11.0 Hypertensive heart disease with heart failure; I50.9 Heart failure, unspecified; I25.10 Atherosclerotic heart disease of native coronary artery without angina pectoris; E78.9 Disorder of lipoprotein metabolism, unspecified; E07.9 Disorder of thyroid, unspecified; M79.7 Fibromyalgia; K92.2 Gastrointestinal hemorrhage, unspecified; K74.60 Unspecified cirrhosis of liver; Z88.1 Allergy status to other antibiotic agents; Z79.899 Other long term (current) drug therapy; Z79.82 Long term (current) use of aspirin; Z79.4 Long term (current) use of insulin

== ENCOUNTER 2018-07-05 18:43 | Inpatient (IN) | payer MEDICARE, OTHER ==
[~2018-07-05] VITALS: Ht 162.6 cm; Wt 85.5 kg
[2018-07-05 19:12] LABS: BASO # 0.1 10^3/uL (0.0-0.2); BASO % 1.1 % (0.0-1.0); EOS # 0.2 10^3/uL (0.0-0.50); EOS % 2.3 % (0.0-3.0); HEMATOCRIT 38.8 % (36.0-47.0); HEMOGLOBIN 12.9 g/dl (12.0-15.5); LYMPH # 3.5 10^3/uL (1.5-4.5); LYMPH % 41.4 % (24.0-44.0); MEAN CORPUSCULAR HEMOGLOBIN 26.9 pg (27.0-33.0); MEAN CORPUSCULAR HGB CONC 33.2 g/dl (32.0-36.5); MEAN CORPUSCULAR VOLUME 80.8 fl (80.0-96.0); MONO # 0.8 10^3/uL (0.0-0.8); MONO % 9.7 % (0.0-5.0); NEUTROPHILS # 3.9 10^3/uL (1.8-7.7); NEUTROPHILS % 45.3 % (36.0-66.0); PLATELET COUNT, AUTOMATED 160 10^3/uL (150-450); WHITE BLOOD COUNT 8.6 10^3/uL (4.0-10.0)
[2018-07-05] MEDS ORDERED: NS 1,000 ML IV ONE (19:15)
[2018-07-05 19:27] LABS: BLOOD UREA NITROGEN 19 MG/DL (7-18); CALCIUM LEVEL 8.8 MG/DL (8.8-10.2); CARBON DIOXIDE LEVEL 22 MEQ/L (21-32); CHLORIDE LEVEL 109 MEQ/L (98-107); CK-MB VALUE MASS < 1.0 NG/ML (<3.6); CPK CREATINE PHOSPHOKINASE 54 U/L (26-192); CREATININE FOR GFR 1.05 MG/DL (0.55-1.30); GLOMERULAR FILTRATION RATE 55.8 (>45); GLUCOSE, FASTING 181 MG/DL (70-100); MB/CK RELATIVE INDEX 1.85 (< OR =4); NT-PRO BNP 1979 PG/ML (<125); POTASSIUM SERUM 3.8 MEQ/L (3.5-5.1); SODIUM LEVEL 142 MEQ/L (136-145); TROPONIN I 0.12 NG/ML (< 0.10)
[2018-07-05] MEDS ORDERED: ISOVUE-370 76% 100ML VIAL (Q9967) As Ordered ONE (19:39)
[2018-07-05 19:47] LABS: INR 1.13; PROTHROMBIN TIME 14.7 SECONDS (12.1-14.4)
--- NOTE | 2018-07-05 20:49 | REPVR ---
EXAM: CT Head Without Contrast EXAM DATE/TIME: 07/05/2018 7:56 PM CLINICAL HISTORY: 68 years old, female; Signs and symptoms; Syncope and collapse TECHNIQUE: Imaging protocol: Axial computed tomography images of the head/brain without contrast. Radiation optimization: All CT scans at this facility use at least one of these dose optimization techniques: automated exposure control; mA and/or kV adjustment per patient size (includes targeted exams where dose is matched to clinical indication); or iterative reconstruction. COMPARISON: No relevant prior studies available. FINDINGS: Brain: Normal. No hemorrhage. No significant white matter disease. No edema. Ventricles: Normal. No ventriculomegaly. Bones/joints: Unremarkable. No acute fracture. Sinuses: Visualized sinuses are unremarkable. No acute sinusitis. Mastoid air cells: Visualized mastoid air cells are unremarkable. No mastoid effusion. Soft tissues: Unremarkable. IMPRESSION: Negative noncontrast head CT. Electronically signed by: Jm Crowder On 07/05/2018 20:49:35 PM
--- NOTE | 2018-07-05 20:54 | REPVR ---
EXAM: CT Cervical Spine Without Contrast EXAM DATE/TIME: 07/05/2018 7:56 PM CLINICAL HISTORY: 68 years old, female; Signs and symptoms; Other: Syncope TECHNIQUE: Imaging protocol: Axial computed tomography images of the cervical spine without contrast. Coronal and sagittal reformatted images were created and reviewed. Radiation optimization: All CT scans at this facility use at least one of these dose optimization techniques: automated exposure control; mA and/or kV adjustment per patient size (includes targeted exams where dose is matched to clinical indication); or iterative reconstruction. COMPARISON: CR Spine,LS wBENDING MIN 6 VIEWS 08/07/2017 11:51 AM FINDINGS: Vertebrae: No acute fracture. Normal alignment. C2-C3: Early degenerative changes, greatest in the left apophyseal joint with no significant spinal or foraminal stenosis. C3-C4: Early bilateral degenerative changes with no spinal or foraminal stenosis. C4-C5: No spinal or foraminal stenosis. C5-C6: Moderate interspace narrowing with slight retrolisthesis and minimal disc protrusion. There are bilateral degenerative changes with borderline spinal stenosis and mild right and borderline left neural foraminal stenosis. C6-C7: Mild interspace narrowing with minimal protrusion and bilateral degenerative changes. Mild bilateral neural foraminal stenosis. No spinal stenosis. C7-T1: The disc is adequately well maintained with no significant spinal or foraminal stenosis. Soft tissues: Unremarkable. Lungs: Lung apices are normal. IMPRESSION: 1. Degenerative disc and bony changes from C5-C7 with borderline spinal stenosis at C5-C6 and some degree of neural foraminal stenosis at both levels. 2. Otherwise negative CT cervical spine. No acute fracture or subluxation. No additional spinal or foraminal stenosis. Electronically signed by: Jm Crowder On 07/05/2018 20:54:21 PM
--- NOTE | 2018-07-05 20:58 | REPVR ---
EXAM: CT Angiography Chest With Contrast EXAM DATE/TIME: 07/05/2018 7:56 PM CLINICAL HISTORY: 68 years old, female; Chest pain; Type not specified; Additional info: Chest pain, left leg swelling TECHNIQUE: Imaging protocol: Axial computed tomographic angiography images of the chest with intravenous contrast using CT angiography protocol. Coronal and sagittal reformatted images were created and reviewed. 3D rendering: MIP reconstructed images were created and reviewed. Radiation optimization: All CT scans at this facility use at least one of these dose optimization techniques: automated exposure control; mA and/or kV adjustment per patient size (includes targeted exams where dose is matched to clinical indication); or iterative reconstruction. Contrast material: ISOVUE 370; Contrast volume: 75 ml; Contrast route: IV; COMPARISON: CT ANGIO CHEST 04/02/2018 5:47 PM FINDINGS: Pulmonary arteries: The main pulmonary artery measures 32 mm. No pulmonary embolism is identified. Aorta: The ascending thoracic aorta measures 32 mm. Lungs: Minimal scattered fibro-atelectatic change. Pleural space: Normal. No pneumothorax. No pleural effusion. Heart: Coronary artery calcifications are present. Gallbladder and bile ducts: Status post cholecystectomy. Lymph nodes: Unremarkable. No enlarged lymph nodes. Bones/joints: Mild degenerative changes of the thoracic spine. Soft tissues: Unremarkable. IMPRESSION: 1. There has been little change from 04/02/2018. No acute interval pulmonary embolism is identified. 2. Minimal scattered fibro-atelectatic change. 3. Status post cholecystectomy. Electronically signed by: Jm Crowder On 07/05/2018 20:58:23 PM
--- NOTE | 2018-07-05 20:59 | REPVR ---
EXAM: US Duplex Bilateral Lower Extremity Veins EXAM DATE/TIME: 07/05/2018 8:28 PM CLINICAL HISTORY: 68 years old, female; Pain; Leg, lower; Bilateral; Additional info: Bilateral leg swelling and pain (right greater than left) TECHNIQUE: Imaging protocol: Real-time duplex ultrasound of the Bilateral Lower Extremities with 2-D amaya scale, color Doppler flow and spectral waveform analysis. Complete exam focused on the bilateral lower extremity veins. COMPARISON: US Duplex, Ext LOWER veins, bilat 09/18/2017 6:39 PM FINDINGS: Right deep veins: Unremarkable. The common femoral, femoral, proximal profunda femoral and popliteal veins are patent without thrombus. Normal Doppler waveforms. Normal compressibility and/or augmentation response. Right superficial veins: Saphenofemoral junction is patent without thrombus. Left deep veins: Unremarkable. The common femoral, femoral, proximal profunda femoral and popliteal veins are patent without thrombus. Normal Doppler waveforms. Normal compressibility and/or augmentation response. Left superficial veins: Saphenofemoral junction is patent without thrombus. Soft tissues: Unremarkable. IMPRESSION: Negative bilateral lower extremity venous duplex exam without evidence of deep venous thrombosis. Electronically signed by: Jm Crowder On 07/05/2018 20:59:01 PM
[2018-07-05] MEDS ORDERED: metFORMIN XR 500MG TAB *GLUCOPHAGE XR PO SCH (21:00)
[2018-07-05] MEDS ORDERED: LEVEMIR (INSULIN DETEMIR) 1 UNITS/0.01ML SC SCH (21:00)
[2018-07-05] MEDS ORDERED: HumaLOG INSULIN (NovoLOG) PER UNIT SC SCH (21:00)
[2018-07-05 21:28] LABS: CK-MB VALUE MASS < 1.0 NG/ML (<3.6); CPK CREATINE PHOSPHOKINASE 49 U/L (26-192); MB/CK RELATIVE INDEX 2.04 (< OR =4); TROPONIN I 0.11 NG/ML (< 0.10)
[2018-07-05] MEDS ORDERED: KETOROLAC 30 MG/ML VIAL (J1885) IV ONE (22:00)
[2018-07-05] MEDS ORDERED: LIDO2JELLY TOP (22:26)
[2018-07-05] MEDS ORDERED: ONDA-195 PO (22:26)
[2018-07-05] MEDS ORDERED: FERR325T3 PO (22:33)
[2018-07-05] MEDS ORDERED: ASPI81TA85 PO (22:33)
[2018-07-05] MEDS ORDERED: GLUCOSE 4 GM CHEW TABLET PO PRN (22:45)
[2018-07-05] MEDS ORDERED: DEXTROSE 50% 50 ML SYRINGE IV PRN (22:45)
[2018-07-05] MEDS ORDERED: ACETAMINOPHEN TAB 650MG DOSE (2X325MG) PO PRN (22:45)
[2018-07-05] MEDS ORDERED: GLUCAGON FOR INJ 1 MG VIAL (J1610) SC PRN (22:45)
--- NOTE | 2018-07-05 23:13 | HPEPDOC ---
General Date of Admission July 05, 2018 at 21:55 Chief Complaint The patient is a 68-year-old female admitted with a reason for visit of Orthost atic Dizziness. Source: Patient Exam Limitations: Clinical conditions, Physical impairment Severity: Moderate Associated Symptoms: Hypotension, Dizziness, Mechanical fall History of Present Illness Pt is a 68 yo female with PMH of HTN, CAD s/p drug eluting stent, DM type 2 presents to [facility] ER due to fall after standing up. Pt denies hitting her head. Pt reported that she was awake, however stated after she fall the next thing she know was that she was laying on the floor supine. She then called 911 and have ambulance taken her to the ER.She reported ambulance staff tried to sit her up and she lost conscious transiently but regained conscious shortly; and the same thing happen again when they try to sit her up the second time. She reported right sided hip pain and leg pain constantly, but reports that she has a MHX of allodynia in the right leg for 2 months. Shealso reported pressure pain in mid substernal region 03/06 that has been going on for 3-4 day. Pt did have a NSTEMI prior with drug-eluting stent placed. Reported the only recent med change is that her PCP d/c amlodipine as her BP was low so she did not take it this morning. Reported lightheadedness. Home Medications Scheduled Aspirin (Aspir 81) 81 Mg Tablet.dr, 81 MG PO DAILY, (Reported) Atorvastatin Calcium (Atorvastatin Calcium) 20 Mg Tab, 20 MG PO DAILY, (Reported) Carvedilol (Carvedilol) 12.5 Mg Tab, 12.5 MG PO TID, (Reported) Dapagliflozin Propanediol (Farxiga) 10 Mg Tab, 5 MG PO DAILY, (Reported) Ferrous Sulfate (Ferrous Sulfate) 325 Mg Tablet.dr, 325 MG PO DAILY, (Reported) Furosemide (Furosemide) 20 Mg Tablet, 20 MG PO DAILY, (Reported) Insulin Detemir (Levemir) 1 Units/0.01 Ml Susp, 40 UNITS SC BID, (Reported) Insulin Human Lispro (Novolog) 100 U/Ml Inj, 10 UNITS SC AC, (Reported) Isosorbide Mononitrate (Isosorbide Mononitrate ER) 30 Mg Tab, 30 MG PO DAILY, (Reported) Levothyroxine Sodium (Synthroid) 25 Mcg Tab, 25 MCG PO DAILY, (Reported) Losartan Potassium (Losartan Potassium) 100 Mg Tab, 100 MG PO DAILY, (Reported) Metformin HCl (Metformin ER Gastric) 1,000 Mg Tab, 1,000 MG PO BID, (Reported) Pantoprazole Sodium (Pantoprazole Sodium) 40 Mg Tab, 40 MG PO DAILY, (Reported) Potassium Chloride (Potassium Chloride) 10 Meq Tab, 10 MEQ PO BID, (Reported) Sucralfate (Sucralfate) 1 Gm Tab, 1 GM PO BID, (Reported) Tizanidine HCl (Tizanidine HCl) 4 Mg Cap, 4 MG PO BID, (Reported) AFTERNOON AND EVENING Scheduled PRN Lidocaine HCl (Lidocaine HCl) 30 Ml Jelly.ml., 1 APLCT TOP BID PRN for PAIN, (Reported) APPLIES TO R KNEE (2%) Ondansetron HCl (Ondansetron HCl) 4 Mg Tablet, 4 MG PO Q6H PRN for NAUSEA OR VOMITING, (Reported) Allergies Coded Allergies: gatifloxacin (Verified Allergy, Mild, 06/10/18) Past Medical History Medical History Type 2 DM CHF. Echo 07/08/17 at [facility] EF50%. Grade 2 diastolic dysfunction. Mild LVH CAD s/p NSTEMI 07/08/17 with 1 ANNABEL TO [id number] Hyperlipidemia Vitamin B12 deficiency-recent level high PMH of Vitamin D deficiency Hypothyroidism Hypertension Right humerus fracture 05/2017 Tendonitis/carpal tunnel/neuropathy in both handsT-Dr. Plummer Fibromyalgia Abdominal hernia Cirrhosis/ARNOLD seen on CT and ABD U/S 06/2017 -referred to Linda Mustafa Colonoscopy and endoscopy-07/2017 Link's cyst left leg with thigh pain Pt self reported chronic right thigh/leg pain for 2 months Symptomatic anemia Surgical History Tonsilectomy as a child Salivary gland pus gland removal 1952 1981 Cholecystectomy 1984 Hysterectomy for endometrial polyps Fistula repair in perineal area 1992 EGD(NML), colonoscopy(NB IH, NML) Dr. Mustafa EGD (gastric erosions, mild gastrophy) Colonoscopy(diverticulosis, otherwise normal) Dr. Zambrano 07/2017 Drug eluting stent to LAD at [facility] 07/08/2017 Cataract surgery-both eyes 2017 Family History Father-bleeding ulcer Mother type 2 DM, kidney failure, acromegaly Brother has MS, DM2 Social History * Smoker: former Smoker A-FIB/CHADSVASC A-FIB History Current/History of A-Fib/PAF?: No Review of Systems Constitutional: Denies: Chills, Fever Pulmonary: Denies: Dyspnea, Cough Cardiovascular: Reports: Chest Pain, Lt Headedness; Denies: Palpitations Gastrointestinal: Denies: Nausea, Vomiting, Abdominal Pain, Diarrhea, Constipation, Melena, Hematochezia Genitourinary: Denies: Dysuria, Frequency, Incontinence, Retention Musculoskeletal: Reports: Leg Pain (Right leg allodynia), Foot Pain (Right foot allodynia), Other Symptoms (Right inner thigh pain; allodynia) Physical Examination General Exam: Positive: Alert, Mild Distress Eye Exam: Positive: Conjunctiva & lids normal; Negative: Sclera icteric ENT Exam: Positive: Atraumatic, Mucous membr. moist/pink Neck Exam: Positive: Supple Chest Exam: Positive: Clear to auscultation, Normal air movement; Negative: Rales, Rhonchi, Wheezing Heart Exam: Positive: Rate Normal, Normal S1, Normal S2; Negative: Murmurs Abdomen Exam: Positive: Normal bowel sounds, Soft Neuro Exam: Positive: Normal Tone, Other (allodynia in right lower extremity- pain out of proportion with light touch) Psych Exam: Positive: Oriented x 3 Vital Signs Vital Signs Date Time Temp Pulse Resp B/P (MAP) Pulse Ox O2 Delivery O2 Flow Rate FiO2 07/05/18 22:43 65 18 97 Room Air 07/05/18 22:40 150/65 (93) 07/05/18 18:52 96.8 Laboratory Data Labs 24H Laboratory Tests 2 07/05/18 18:53: Immature Granulocyte % (Auto) 0.2, White Blood Count 8.6, Red Blood Count 4.80, Hemoglobin 12.9, Hematocrit 38.8, Mean Corpuscular Volume 80.8, Mean Corpuscular Hemoglobin 26.9L, Mean Corpuscular Hemoglobin Concent 33.2, Red Cell Distribution Width 18.5H, Platelet Count 160, Neutrophils (%) (Auto) 45.3, Lymphocytes (%) (Auto) 41.4, Monocytes (%) (Auto) 9.7H, Eosinophils (%) (Auto) 2.3, Basophils (%) (Auto) 1.1H, Neutrophils # (Auto) 3.9, Lymphocytes # (Auto) 3.5, Monocytes # (Auto) 0.8, Eosinophils # (Auto) 0.2, Basophils # (Auto) 0.1, Nucleated Red Blood Cells % (auto) 0.0, Prothrombin Time 14.7H, Prothromb Time International Ratio 1.13, Anion Gap 11, Glomerular Filtration Rate 55.8, Blood U christiano Nitrogen 19H, Creatinine 1.05, Sodium Level 142, Potassium Level 3.8, Chloride Level 109H, Carbon Dioxide Level 22, Calcium Level 8.8, Total Creatine Kinase 54, Creatine Kinase MB < 1.0, Creatine Kinase MB Relative Index 1.85, Troponin I 0.12H, IG-Xve-R-Type Natriuretic Peptide 1979H 07/05/18 20:57: Total Creatine Kinase 49, Creatine Kinase MB < 1.0, Creatine Kinase MB Relative Index 2.04, Troponin I 0.11H CBC/BMP Laboratory Tests 07/05/18 18:53 Red Blood Count 4.80, Mean Corpuscular Volume 80.8, Mean Corpuscular Hemoglobin 26.9 L, Mean Corpuscular Hemoglobin Concent 33.2, Red Cell Distribution Width 18.5 H, Neutrophils (%) (Auto) 45.3, Lymphocytes (%) (Auto) 41.4, Monocytes (%) (Auto) 9.7 H, Eosinophils (%) (Auto) 2.3, Basophils (%) (Auto) 1.1 H, Neutrophils # (Auto) 3.9, Lymphocytes # (Auto) 3.5, Monocytes # (Auto) 0.8, Eosinophils # (Auto) 0.2, Basophils # (Auto) 0.1, Calcium Level 8.8, Total Creatine Kinase 54 Problems (1) Syncope due to orthostatic hypotension Status: Acute Response to Treatment: Stable Problem Text: likely d/t medications Coreg, furosemide, and Lorsartan. Hold furosemid, lorsartan, and isosobid mornonitrate. Pt will be on 3.125g starting tomorrow morning. Pt has a orthostatic vitals done in ER today without s ignificant changes upon sitting however her blood pressure was soft 90s/50s at that time. Pt reported right leg pain especially in iright inner thigh with marked allodynia. Cannot r/o extremity fracture d/t fall thus pelvic Xray, right thigh/knee/ankle X ray ordered. Toradol IV 60mg PRN and cont home med Tinzanidine. Orthostatic vitals scheduled for tomorrow morning. Fall precaution, PT/OT. (2) Chest pain, rule out acute myocardial infarction Status: Acute Problem Text: midline retrosternal dull/pressure pain for about 2 days. Non- tender to palpation. Pain rates 1/10, and denies radiation any where. Pt has elevated trop at 0.12 then 0.11; f/u with repeat trop. (3) Elevated troponin Problem Text: Pt's troponin elevated in all lab draw around 0.11 to 0.25 since Mar 06 2017. Per driver material handler's note from Mar 08 2017, it was noted that pt has troponemia which was thought to be not consistent with an acute coronary syndrome at that time. However, as pt has chest pain, cannot r/o ACS and we will cont to trend trop and f.u pt closely. (4) Diabetes mellitus Status: Chronic Problem Text: Continue hme insulin. Hold home Metformin for at least 48 hours as pt just received IV contrast. FSBS Q6H and sliding scale ordered. Hold home med Dapagliflozin (5) Chronic diastolic (congestive) heart failure Status: Chronic Response to Treatment: Stable Problem Text: no obvious signs of fluid overload. Denies any SOB. I&O and weight daily. Cont to monitor the pt. (6) Hypothyroidism Status: Chronic Problem Text: Cont home med levothyroxine. Cont to monitor the pt Plan / VTE VTE Prophylaxis Ordered?: Yes NICOLE BRIGGS DO July 05, 2018 23:13
[2018-07-05] MEDS ORDERED: ASPIRIN 325 MG TAB PO ONE (23:15)
[2018-07-05 23:46] VITALS: BP 186/66
[2018-07-06] VITALS (13 sets, daily range): BP systolic 62–220; BP diastolic 28–88
[2018-07-06] MEDS: POTASSIUM CHLORIDE 10 MEQ SR TABLET PO SCH ×3 (00:22→22:03)
[2018-07-06] MEDS: SUCRALFATE 1 GM TAB PO SCH ×3 (00:22→22:03)
[2018-07-06] MEDS: tiZANidine 4 MG TAB PO SCH ×2 (01:02→13:20)
[2018-07-06] MEDS ORDERED: LEVEMIR (INSULIN DETEMIR) 1 UNITS/0.01ML SC SCH (01:45)
[2018-07-06 03:11] LABS: HEMATOCRIT 37.7 % (36.0-47.0); HEMOGLOBIN 12.3 g/dl (12.0-15.5); MEAN CORPUSCULAR HEMOGLOBIN 26.7 pg (27.0-33.0); MEAN CORPUSCULAR HGB CONC 32.6 g/dl (32.0-36.5); PLATELET COUNT, AUTOMATED 128 10^3/uL (150-450)
[2018-07-06 03:40] LABS: BLOOD UREA NITROGEN 18 MG/DL (7-18); CALCIUM LEVEL 7.8 MG/DL (8.8-10.2); CARBON DIOXIDE LEVEL 23 MEQ/L (21-32); CHLORIDE LEVEL 110 MEQ/L (98-107); CREATININE FOR GFR 0.76 MG/DL (0.55-1.30); GLOMERULAR FILTRATION RATE > 60.0 (>45); GLUCOSE, FASTING 98 MG/DL (70-100); POTASSIUM SERUM 3.4 MEQ/L (3.5-5.1); SODIUM LEVEL 143 MEQ/L (136-145); TROPONIN I 0.13 NG/ML (< 0.10)
[2018-07-06] MEDS ORDERED: KETOROLAC 30 MG/ML VIAL (J1885) IV SCH (04:00)
[2018-07-06] MEDS: HumaLOG INSULIN (NovoLOG) PER UNIT SC SCH ×4 (05:48→22:04)
[2018-07-06] MEDS: HEPARIN SOD (PORCINE) 5000 UNITS/ML VIAL SC SCH ×3 (05:48→22:05)
[2018-07-06] MEDS ORDERED: POTASSIUM CHLORIDE 10 MEQ SR TABLET PO ONE (07:00)
[2018-07-06] MEDS ORDERED: HumaLOG INSULIN (NovoLOG) PER UNIT SC SCH ×2 (07:30)
--- NOTE | 2018-07-06 07:53 | ECGEPIP ---
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
--- NOTE | 2018-07-06 07:57 | ECGEPIP ---
Stationary ECG Study [facility] - ED Test Date: 2018-07-05 Pat Name: MARIANA SMITH Department: Room: [place] [address] Gender: F Clinical Rn Manager: margaux : 1950 Requested By: ELBERT Lopez Order Number: [id number] Reading MD: Shaq Tenorio Measurements Intervals [place] Rate: 54 P: 43 CO: 149 QRS: -27 QRSD: 106 T: 122 QT: 449 QTc: 429 Interpretive Statements SINUS BRADYCARDIA WITH OCCASIONAL SUPRAVENTRICULAR PREMATURE COMPLEXES BORDERLINE LEFT AXIS DEVIATION ST DEVIATION AND MODERATE T-WAVE ABNORMALITY, CONSIDER LATERAL ISCHEMIA Electronically Signed On 07-06-2018 7:56:49 EDT by Shaq Tenorio
[2018-07-06] MEDS ORDERED: ANEXSIA, NORCO 7.5MG/325MG TABLET(HYDROCODONE/APAP) PO PRN (08:45)
[2018-07-06] MEDS ORDERED: PERCOCET 5MG/325MG TAB PO PRN ×2 (08:45)
[2018-07-06] MEDS ORDERED: ISOSORBIDE MON. (IMDUR) 30 MG XR TAB PO SCH (09:00)
[2018-07-06] MEDS ORDERED: CARVedilol 3.125 MG TAB PO SCH (09:00)
[2018-07-06] MEDS: ATORVASTATIN 20 MG TAB PO SCH (09:22)
[2018-07-06] MEDS: CARVedilol 3.125 MG TAB PO SCH ×2 (09:22→22:02)
[2018-07-06] MEDS: LOSARTAN 50 MG TAB PO SCH (09:22)
[2018-07-06] MEDS: FERROUS SULFATE 325MG TAB PO SCH (09:23)
[2018-07-06] MEDS: ASPIRIN 81 MG ENTERIC TAB PO SCH (09:23)
[2018-07-06] MEDS: LEVOTHYROXINE 25MCG TABLET (0.025MG) PO SCH (09:23)
[2018-07-06] MEDS: PANTOPRAZOLE 40MG TAB (PROTONIX) PO SCH (09:23)
[2018-07-06] MEDS: LEVEMIR (INSULIN DETEMIR) 1 UNITS/0.01ML SC SCH ×2 (09:24→22:04)
[2018-07-06] MEDS: LIDOCAINE 2% JELLY 30 ML TOP PRN ×2 (09:25→22:06)
--- NOTE | 2018-07-06 10:45 | REP ---
RIGHT FOOT SERIES: FOUR VIEWS. HISTORY: Pain in the right lower extremity. Patient status post fall. COMPARISON STUDY: June 19, 2005 FINDINGS: Four views of the right foot demonstrate Achilles and plantar calcaneal spurring. Overall mineralization pattern is normal. There is a mild hallux valgus. No fractures seen. IMPRESSION: No traumatic abnormality. Heel spurs. Mild hallux valgus. Overlying clothing artifact. Electronically Signed by Frantz Ruiz MD 07/06/2018 11:10 A
--- NOTE | 2018-07-06 10:46 | REP ---
BILATERAL HIP STUDY: FIVE VIEWS. HISTORY: Pain after a fall. FINDINGS: AP view of the pelvis and AP and frog-leg views of both hips demonstrate an intact bony pelvis. No hip or proximal femur fracture is seen. No sacral fractures noted. Urinary bladder is opacified by intravenous contrast administered for CT study of the chest. There are degenerative changes in the lumbar spine. IMPRESSION: No traumatic abnormality. Electronically Signed by Frantz Ruiz MD 07/06/2018 11:10 A
--- NOTE | 2018-07-06 10:46 | REP ---
RIGHT FEMUR: TWO VIEWS. HISTORY: Pain after a fall. FINDINGS: AP and lateral views of the distal femur demonstrate vascular calcification. No fracture or subluxation is seen. No other abnormality. IMPRESSION: Vascular calcification. Otherwise negative right femur views. Electronically Signed by Frantz Ruiz MD 07/06/2018 11:10 A
--- NOTE | 2018-07-06 10:48 | REP ---
RIGHT KNEE SERIES: FIVE VIEWS. HISTORY: Pain after a fall. FINDINGS: Five views of the right knee show vascular calcification. Bones, joints, and soft tissues are otherwise intact. IMPRESSION: No fracture seen. Electronically Signed by Frantz Ruiz MD 07/06/2018 11:10 A
[2018-07-06] MEDS ORDERED: hydrALAZINE INJ 20 MG/ML VIAL IV ONE (13:30)
[2018-07-06] MEDS ORDERED: NS 1,000 ML IV SCH (14:30)
[2018-07-06] MEDS ORDERED: NS 500 ML IV ONE (14:30)
--- NOTE | 2018-07-06 16:00 | IPNPDOC ---
Text Note Date of Service The patient was seen on 07/06/18. NOTE Subjective: Patient is a 68-year-old female with a PMHx of HTN, CAD s/p Stent (Hx of NSTEMI), Diastolic CHF (Grade 2), DM2, DLP, Hx of Cirrhosis / ARNOLD (on CT & US from 06/2017), Hypothyroidism, Hx of Anemia, Vitamin D / B12 deficiency, Fibromyalgia, GERD, who presented to the ER after she fell upon standing up. Patient denied any LOC / Head trauma. Patient called 911 for evaluation and was taken to the ER. . She has been continued experienced right-sided hip pain. Patient was seen and examined at the bedside. Currently denies any chest pain, shortness of breath or palpitations. Denies nausea or vomiting. Denies abdominal pain. Vision. Does report right leg pain; reports that this is a chronic problem for her. After pain medication she has indicated that her pain is rated 5/10. Objective: Vitals (See below) General: Lying in bed, no acute distress, comfortable, AAOx3 HEENT: NC, AT CVS: RRR, +S1S2 Lungs: Fair air entry b/l, no appreciable wheezing / rhonchi / rales Abdomen: Soft, ND, NT Extremities: - Edema, - Calf tenderness Assessment and plan: Syncope - likely 2/2 orthostatic hypotension - Possibly 2/2 blood pressure medications and opiate pain control - BP medications were re-started this morning after SBP were found to be 210 - Will discontinue some BP medications; and continue with only selective BP medications; c/w Carvedilol and Losartan alone; s/p Isosorbide - c/w Pain control for R leg pain - c/w IV fluid hydration - c/w Physical therapy when able to ambulate s/p Chest pain; atypical in nature - EKG reviewed with possible T-wave inversions noted in AVL and V5/6 - Will repeat EKG - See below Elevated troponin - possibly 2/2 demand ischemia - Patient has been hypotensive on arrival - Has not had a significant change in troponin - Will continue to trend troponin - s/p ASA 325 in ER - c/w ASA, Atorvastatin and Carvedilol, Chronic R leg pain - Patient reports opiate based medication use as an outpatient - Will get MRI of hip to evaluate - Will resume pain medications IDDM2 - c/w ISS DLP - c/w Atorvastatin Diastolic CHF, Chronic - No evidence of fluid overload - Furosemide on hold Hypothyroidism - c/w Levothyroxine Hx of Cirrhosis / ARNOLD - Was found on CT & US from 06/2017 Vitamin D / B12 deficiency - c/w outpatient supplementation Fibromyalgia - c/w home medications GERD - c/w Protonix and Carafate DVT prophylaxis - c/w Heparin Disposition: - Will start physical therapy when BP normalizes VS,Fishbone, I+O VS, Fishbone, I+O Laboratory Tests 07/05/18 18:53 Red Blood Count 4.80, Mean Corpuscular Volume 80.8, Mean Corpuscular Hemoglobin 26.9 L, Mean Corpuscular Hemoglobin Concent 33.2, Red Cell Distribution Width 18.5 H, Neutrophils (%) (Auto) 45.3, Lymphocytes (%) (Auto) 41.4, Monocytes (%) (Auto) 9.7 H, Eosinophils (%) (Auto) 2.3, Basophils (%) (Auto) 1.1 H, Neutrophils # (Auto) 3.9, Lymphocytes # (Auto) 3.5, Monocytes # (Auto) 0.8, Eosinophils # (Auto) 0.2, Basophils # (Auto) 0.1, Calcium Level 8.8, Total Creatine Kinase 54 07/06/18 02:57 Red Blood Count 4.60, Mean Corpuscular Volume 82.0, Mean Corpuscular Hemoglobin 26.7 L, Mean Corpuscular Hemoglobin Concent 32.6, Red Cell Distribution Width 18.6 H, Calcium Level 7.8 L Vital Signs Date Time Temp Pulse Resp B/P (MAP) Pulse Ox O2 Delivery O2 Flow Rate FiO2 07/06/18 15:33 110/52 (71) 07/06/18 12:00 99.1 80 18 98 07/05/18 22:58 Room Air I&O- Last 24 Hours up to 6 AM 07/06/18 06:00 Intake Total 1100 ml Output Total 300 ml Balance 800 ml LEAH KHALIL MD July 06, 2018 16:00
--- NOTE | 2018-07-06 16:44 | ECGEPIP ---
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
--- NOTE | 2018-07-06 18:59 | REPVR ---
EXAM: MR Lumbar Spine Without Contrast. EXAM DATE/TIME: 07/06/2018 3:56 PM CLINICAL HISTORY: 68 years old, female; Pain; Sciatica; Right; Additional info: R leg weakness TECHNIQUE: Imaging protocol: Multiplanar magnetic resonance images of the lumbar spine without intravenous contrast. COMPARISON: MRI-Spine, L.S. without con 06/09/2018 7:46 AM FINDINGS: Vertebrae: Exaggeration of the lumbar lordosis. 3 mm of grade 1 degenerative anterolisthesis of L4 on L5. No acute fracture seen. There is disc desiccation throughout. Disc height loss and spondylosis is marked at L5-S1. Mild to moderate lower thoracic degenerative disc disease at T11-12. No significant interval change in the appearance of degenerative disc disease based on the sagittal imaging compared to the prior study. L1-L2: No significant interval change. Mild facet arthropathy. No stenoses. L2-L3: No significant interval change. Mild facet arthropathy. No stenoses. L3-L4: No significant interval change. Mild diffuse disc bulge as well as moderate facet arthropathy and ligamentum flavum buckling. There are facet joint effusions. Mild central spinal canal and lateral recess stenoses. Mild left neural foraminal stenosis. No significant right neural foraminal narrowing. L4-L5: No significant interval change. Anterolisthesis with pseudobulging of the intervertebral disc severe facet arthropathy and ligamentum flavum buckling with facet joint effusions as well as extracanalicular synovial cyst on the left. Central spinal canal stenosis is mild. The lateral recesses are partially effaced near the L5 nerve roots. Moderate right and mild left neural foraminal stenoses. L5-S1: Moderate diffuse disc osteophyte complex and facet arthropathy. The central spinal canal remains patent. No evidence of S1 nerve root impingement. Mild right neural foraminal stenosis. No significant left neural foraminal narrowing. Spinal cord: The conus medullaris ends normally. Gallbladder and bile ducts: Prominent caliber of the extrahepatic bile duct may be related to post cholecystectomy state. Soft tissues: Unremarkable. IMPRESSION: 1. No significant interval change. 2. Lateral recess and neural foraminal stenoses at L4-5. Electronically signed by: Deb Saldaña On 07/06/2018 18:59:21 PM
[2018-07-06] MEDS: PERCOCET 5MG/325MG TAB PO PRN (23:22)
[2018-07-07] VITALS (9 sets, daily range): BP systolic 122–202; BP diastolic 72–90
[2018-07-07] MEDS: PERCOCET 5MG/325MG TAB PO PRN ×4 (03:30→21:44)
[2018-07-07] MEDS ORDERED: amLODIPine 10 MG TAB PO ONE (04:00)
[2018-07-07 04:45] LABS: HEMATOCRIT 42.9 % (36.0-47.0); MEAN CORPUSCULAR HEMOGLOBIN 26.6 pg (27.0-33.0); MEAN CORPUSCULAR HGB CONC 32.6 g/dl (32.0-36.5); MEAN CORPUSCULAR VOLUME 81.4 fl (80.0-96.0); PLATELET COUNT, AUTOMATED 162 10^3/uL (150-450); RED BLOOD COUNT 5.27 10^6/uL (4.00-5.40); WHITE BLOOD COUNT 10.4 10^3/uL (4.0-10.0)
[2018-07-07 05:01] LABS: BLOOD UREA NITROGEN 14 MG/DL (7-18); CALCIUM LEVEL 8.7 MG/DL (8.8-10.2); CARBON DIOXIDE LEVEL 23 MEQ/L (21-32); CHLORIDE LEVEL 111 MEQ/L (98-107); CREATININE FOR GFR 0.74 MG/DL (0.55-1.30); GLOMERULAR FILTRATION RATE > 60.0 (>45); GLUCOSE, FASTING 164 MG/DL (70-100); POTASSIUM SERUM 3.6 MEQ/L (3.5-5.1); SODIUM LEVEL 142 MEQ/L (136-145)
[2018-07-07] MEDS: HEPARIN SOD (PORCINE) 5000 UNITS/ML VIAL SC SCH ×3 (06:37→21:37)
[2018-07-07 07:02] LABS: TROPONIN I 0.24 NG/ML (< 0.10)
[2018-07-07] MEDS: HumaLOG INSULIN (NovoLOG) PER UNIT SC SCH ×4 (08:39→21:00)
[2018-07-07] MEDS: PANTOPRAZOLE 40MG TAB (PROTONIX) PO SCH (08:40)
[2018-07-07] MEDS: LEVEMIR (INSULIN DETEMIR) 1 UNITS/0.01ML SC SCH ×2 (08:40→21:37)
[2018-07-07] MEDS: LOSARTAN 50 MG TAB PO SCH (08:40)
[2018-07-07] MEDS: SUCRALFATE 1 GM TAB PO SCH ×2 (08:41→21:36)
[2018-07-07] MEDS: CARVedilol 3.125 MG TAB PO SCH ×2 (08:41→21:36)
[2018-07-07] MEDS: POTASSIUM CHLORIDE 10 MEQ SR TABLET PO SCH ×2 (08:42→21:36)
[2018-07-07] MEDS: LEVOTHYROXINE 25MCG TABLET (0.025MG) PO SCH (08:42)
[2018-07-07] MEDS: FERROUS SULFATE 325MG TAB PO SCH (08:42)
[2018-07-07] MEDS: ASPIRIN 81 MG ENTERIC TAB PO SCH (08:42)
[2018-07-07] MEDS: ATORVASTATIN 20 MG TAB PO SCH (08:59)
--- NOTE | 2018-07-07 15:29 | IPNPDOC ---
Date Seen The patient was seen on 07/07/18. Progress Note SUBJECTIVE: Patient continues to complain of significant pain. She denies lightheadedness or dizziness while lying flat she tells me that her blood pressure is only high when she is in significant pain she denies chest pressure headache or blurred vision associated with this she denies nausea vomiting or diarrhea OBJECTIVE PHYSICAL EXAMINATION: VITAL SIGNS: Please see below. GENERAL: Elderly female lying in bed on her left side she does not appear to be in any acute distress awake alert oriented 3 HEENT: Cranial nerves II through XII are grossly intact she has moist mucous mem bers elevation CVP CARDIOVASCULAR: S1 S2 she is not tachycardic noticed heart sounds appreciated. RESPIRATORY: Clear to auscultation bilaterally. ABDOMINAL:Obese bowel sounds present abdomen soft EXTREMITIES: No clubbing cyanosis or edema decreased range of motion secondary to pain with hip NEUROLOGICAL: No focal deficits PSYCHOLOGICAL: Appropriate LABORATORY DATA, IMAGING STUDIES, MICROBIOLOGY: Please see below. DVT prophylaxis ordered?: Heparin every 8 ASSESSMENT AND PLAN: This is a 68-year-old female with syncope and chronic pain. 1. Syncope: Secondary to orthostasis. It appears that her blood pressure is elevated secondary to pain she is receiving higher higher doses of antihypertensive medications upon standing her blood pressure does drop significantly. Early this a.m. her blood pressure was 202/86 while she was experiencing pain should receive additional Norvasc once again this afternoon she is orthostatic with a systolic of 170 while lying flat 137 upon standing. I suspect she could require less antihypertensive medication when her pain is controlled. The patient agrees as well, I have restarted the pain clinic in place a consult to see if she is a candidate to receive a joint injection which was originally scheduled he completed outpatient tomorrow given the severity of her symptoms and affect on her presentation and hospitalization. Once her pain is better controlled the wrist joint injection her hydrocodone I will then begin titrating her antihypertensives appropriately. I suspect she would also benefit from physical therapy and occupational therapy which have been ordered already 2. s/p Chest pain; atypical in nature, resolved EKG reviewed with possible T- wave inversions noted in AVL and V5/6, Will repeat EKG, See below 3. Abnormal troponin - possibly 2/2 demand ischemia related to hypertension. However it does appear she has some chronicity to this with her values rarely being in the normal range. I have no concern for an acute coronary event. She is continued on aspirin atorvastatin and carvedilol. Continue to trend until trending downward 4.Chronic R leg pain : As outlined above MRI of the L.S. is unrevealing. I have restarted the management will see the patient in consultation. Hopefully once her pain has been optimized and under control we can then begin titrating her blood pressure medication accordingly 5. IDDM2: C/w ISS finger sticks controlled 6. DLP: c/w Atorvastatin 7. Diastolic CHF, Chronic: Well compensated, Furosemide on hold and restart when pain well-controlled blood pressure optimized 8. Hypothyroidism:c/w Levothyroxine 9. Hx of Cirrhosis / ARNOLD : Stable no active issue continue outpatient follow-up 10. Vitamin D / B12 deficiency: c/w outpatient supplementation 11. Fibromyalgia: c/w home medications 12. GERD: c/w Protonix and Carafate 13. Iron deficiency anemia: Continue supplementation Disposition: Pending PT pain control BP optimization VS, I&O, 24H, Fishbone Vital Signs/I&O Vital Signs Date Time Temp Pulse Resp B/P (MAP) Pulse Ox O2 Delivery O2 Flow Rate FiO2 07/07/18 12:00 97.5 92 20 170/82 (111) 98 07/05/18 22:58 Room Air I&O- Last 24 Hours up to 6 AM 07/07/18 06:00 Intake Total 2795 ml Output Total 2025 ml Balance 770 ml Laboratory Data 24H LABS Laboratory Tests 2 07/06/18 15:55: Troponin I 0.21#H 07/06/18 18:28: Bedside Glucose (Misc Panel) 177H 07/06/18 21:51: Bedside Glucose (Misc Panel) 254H 07/07/18 04:02: Troponin I 0.24H, Nucleated Red Blood Cells % (auto) 0.0, Anion Gap 8, Glomerular Filtration Rate > 60.0, Blood Urea Nitrogen 14, Creatinine 0.74, Sodium Level 142, Potassium Level 3.6, Chloride Level 111H, Carbon Dioxide Level 23, Calcium Level 8.7L 07/07/18 11:58: Bedside Glucose (Misc Panel) 183H CBC/BMP Laboratory Tests 07/07/18 04:02 Red Blood Count 5.27, Mean Corpuscular Volume 81.4, Mean Corpuscular Hemoglobin 26.6 L, Mean Corpuscular Hemoglobin Concent 32.6, Red Cell Distribution Width 18.5 H, Calcium Level 8.7 L HI ECHEVARRIA MD July 07, 2018 15:29
--- NOTE | 2018-07-07 16:43 | CR ---
DATE OF CONSULTATION: 07/07/2018 REFERRING PHYSICIAN: Dr. Oneal CHIEF COMPLAINT: 1. Low back pain. 2. Right leg pain. HISTORY OF PRESENT ILLNESS: Juju is a 68-year-old female who was admitted 07/05/2018 due to syncopal episode and fall. She was initially evaluated at the pain center in May for persistent low back and right leg pain. Complaining of burning pain in her right leg. This began about 3 months ago without precipitating event. Complaining of low back pain to a lesser extent that is aching and painful with movement. She is able to move to a sitting position without too much difficulty. There is evidence of bands of tissue within the lumbar paraspinal region, right greater than left that are tender with palpation or movement. She was scheduled to be seen tomorrow for trigger point injections and I feel that she would be able to come over for those tomorrow. I did inform her that I did not feel that the trigger point injections would help with her right leg burning pain. This sounds like neuropathy to me. Perhaps she would be able to start on some gabapentin at a low dose to see if we can get the burning pain under better control. PAST MEDICAL HISTORY: Type 2 diabetes mellitus, congestive heart failure, coronary artery disease status post NSTEMI 07/08/2017 with stenting at [facility], hyperlipidemia, B12 deficiency, hypothyroidism, hypertension, right humerus fracture 05/2017, tendonitis both hands, fibromyalgia, abdominal hernia, cirrhosis / ARNOLD. SURGICAL HISTORY: Tonsillectomy, section, cholecystectomy, hysterectomy, fistula repair in perineal area 1992, drug eluting stent to LAD at [facility] 07/08/2017, cataract surgery both eyes 2016. SOCIAL HISTORY: Former smoker. Lives alone in senior citizen housing here locally. REVIEW OF SYSTEMS: 11-point review of systems is negative except as elicited in the HPI. PHYSICAL EXAMINATION: Awake, alert, pleasant. Vital signs: 97.5, 92, BP is 170/82. Musculoskeletal: Trigger points elicited bilateral lumbar paraspinals right greater than left. Bands of tissue that are tender with aggravation and pain with palpation and range of joint motion in these areas. Muscle strength testing is 5/5 lower extremities. Reports pain with movement of right leg with muscle strength testing. Reporting normal sensation to light touch lower extremities. No redness or swelling noted. ASSESSMENT: 1. Myalgia 2. Neuropathy. PLAN: I would recommend a trial of gabapentin 100 mg three times a day for lower extremity burning pain. We will bring her over on 07/08/2018 for trigger point injections of the lower back. She will be nothing by mouth after morning breakfast. We will be following her at the pain center upon discharge.
[2018-07-08 05:30] VITALS: BP_SYST 168; BP_SYST 174; BP_SYST 178; BP_DIAS 74; BP_DIAS 84
[2018-07-08] MEDS: HEPARIN SOD (PORCINE) 5000 UNITS/ML VIAL SC SCH ×3 (05:31→21:09)
[2018-07-08] MEDS: PERCOCET 5MG/325MG TAB PO PRN ×2 (05:32→09:59)
[2018-07-08 06:00] VITALS: BP 174/84
[2018-07-08 06:07] LABS: HEMATOCRIT 44.6 % (36.0-47.0); HEMOGLOBIN 14.8 g/dl (12.0-15.5); MEAN CORPUSCULAR HEMOGLOBIN 26.5 pg (27.0-33.0); MEAN CORPUSCULAR HGB CONC 33.2 g/dl (32.0-36.5); MEAN CORPUSCULAR VOLUME 79.8 fl (80.0-96.0); PLATELET COUNT, AUTOMATED 204 10^3/uL (150-450); RED BLOOD COUNT 5.59 10^6/uL (4.00-5.40); WHITE BLOOD COUNT 11.3 10^3/uL (4.0-10.0)
[2018-07-08 06:25] LABS: BLOOD UREA NITROGEN 11 MG/DL (7-18); CALCIUM LEVEL 8.3 MG/DL (8.8-10.2); CARBON DIOXIDE LEVEL 24 MEQ/L (21-32); CHLORIDE LEVEL 110 MEQ/L (98-107); CREATININE FOR GFR 0.65 MG/DL (0.55-1.30); GLOMERULAR FILTRATION RATE > 60.0 (>45); GLUCOSE, FASTING 188 MG/DL (70-100); POTASSIUM SERUM 3.6 MEQ/L (3.5-5.1); SODIUM LEVEL 142 MEQ/L (136-145)
[2018-07-08 07:59] LABS: TROPONIN I 0.28 NG/ML (< 0.10)
[2018-07-08] MEDS: PANTOPRAZOLE 40MG TAB (PROTONIX) PO SCH (08:51)
[2018-07-08] MEDS: ASPIRIN 81 MG ENTERIC TAB PO SCH (08:51)
[2018-07-08] MEDS: LOSARTAN 50 MG TAB PO SCH (08:51)
[2018-07-08] MEDS: CARVedilol 3.125 MG TAB PO SCH ×2 (08:52→21:07)
[2018-07-08] MEDS: POTASSIUM CHLORIDE 10 MEQ SR TABLET PO SCH ×2 (08:52→21:07)
[2018-07-08] MEDS: SUCRALFATE 1 GM TAB PO SCH ×2 (08:52→21:06)
[2018-07-08] MEDS: LEVOTHYROXINE 25MCG TABLET (0.025MG) PO SCH (08:53)
[2018-07-08] MEDS: ATORVASTATIN 20 MG TAB PO SCH (08:53)
[2018-07-08] MEDS: GABAPENTIN 100 MG CAP PO SCH ×3 (08:53→21:06)
[2018-07-08] MEDS: LEVEMIR (INSULIN DETEMIR) 1 UNITS/0.01ML SC SCH ×2 (08:54→21:08)
[2018-07-08] MEDS: HumaLOG INSULIN (NovoLOG) PER UNIT SC SCH ×5 (08:54→21:12)
[2018-07-08] MEDS: FERROUS SULFATE 325MG TAB PO SCH (08:55)
--- NOTE | 2018-07-08 13:59 | IPNPDOC ---
Date Seen The patient was seen on 07/08/18. Progress Note SUBJECTIVE: Patient continues to complain of significant pain, it is slightly better today though. She denies lightheadedness or dizziness she denies any chest pressure nausea vomiting or diarrhea OBJECTIVE PHYSICAL EXAMINATION: VITAL SIGNS: Please see below. GENERAL: Elderly female lying in bed on her left side she does not appear to be in any acute distress awake alert oriented 3 HEENT: Cranial nerves II through XII are grossly intact she has moist mucous members elevation CVP CARDIOVASCULAR: S1 S2 she is not tachycardic noticed heart sounds appreciated. RESPIRATORY: Clear to auscultation bilaterally. ABDOMINAL:Obese bowel sounds present abdomen soft EXTREMITIES: No clubbing cyanosis or edema decreased range of motion secondary to pain with hip. Pain out of proportion with light palpation on the right leg NEUROLOGICAL: No focal deficits PSYCHOLOGICAL: Appropriate LABORATORY DATA, IMAGING STUDIES, MICROBIOLOGY: Please see below. DVT prophylaxis ordered?: Heparin every 8 ASSESSMENT AND PLAN: This is a 68-year-old female with syncope and chronic pain. 1. Syncope: Secondary to orthostasis. It appears that her blood pressure is elevated secondary to pain she is receiving higher higher doses of antihypertensive medications upon standing her blood pressure does drop significantly. Over the last 24 hours her blood pressure remains elevated however she is not having some Tums of orthostasis her pain is not yet controlled however. Plan is for pain management injection today at 2 PM. I will start her on gabapentin as per the recommendation. I suspect she could require less antihypertensive medication when her pain is controlled. The patient agrees as well. Once her pain is better controlled I will then begin titrating her antihypertensives appropriately. I suspect she would also benefit from physical therapy and occupational therapy which have been ordered already 2. s/p Chest pain; atypical in nature, resolved EKG reviewed with possible T- wave inversions noted in AVL and V5/6, Will repeat EKG, See below 3. Abnormal troponin - possibly 2/2 demand ischemia related to hypertension. However it does appear she has some chronicity to this with her values rarely being in the normal range. I have no concern for an acute coronary event. She is continued on aspirin atorvastatin and carvedilol. Trending downward at this time 4.Chronic R leg pain : As outlined above MRI of the L.S. is unrevealing. I have restarted the management will see the patient in consultation. Hopefully once her pain has been optimized and under control we can then begin titrating her blood pressure medication accordingly 5. IDDM2: C/w ISS finger sticks controlled 6. DLP: c/w Atorvastatin 7. Diastolic CHF, Chronic: Well compensated, Furosemide on hold and restart when pain well-controlled blood pressure optimized 8. Hypothyroidism:c/w Levothyroxine 9. Hx of Cirrhosis / ARNOLD : Stable no active issue continue outpatient follow-up 10. Vitamin D / B12 deficiency: c/w outpatient supplementation 11. Fibromyalgia: c/w home medications 12. GERD: c/w Protonix and Carafate 13. Iron deficiency anemia: Continue supplementation Disposition: Pending PT pain control BP optimization VS, I&O, 24H, Fishbone Vital Signs/I&O Vital Signs Date Time Temp Pulse Resp B/P (MAP) Pulse Ox O2 Delivery O2 Flow Rate FiO2 07/08/18 10:29 18 07/08/18 08:52 78 180/80 07/08/18 06:00 97.9 97 07/05/18 22:58 Room Air I&O- Last 24 Hours up to 6 AM 07/08/18 05:59 Intake Total 1540 ml Output Total 3100 ml Balance -1560 ml Laboratory Data 24H LABS Laboratory Tests 2 07/07/18 15:43: Troponin I 0.32#H 07/07/18 17:03: Bedside Glucose (Misc Panel) 191H 07/07/18 21:35: Bedside Glucose (Misc Panel) 238H 07/08/18 05:40: Troponin I 0.28H, Nucleated Red Blood Cells % (auto) 0.0, Anion Gap 8, Glomerular Filtration Rate > 60.0, Blood Urea Nitrogen 11, Creatinine 0.65, Sodium Level 142, Potassium Level 3.6, Chloride Level 110H, Carbon Dioxide Level 24, Calcium Level 8.3L 07/08/18 11:39: Bedside Glucose (Misc Panel) 294H CBC/BMP Laboratory Tests 07/08/18 05:40 Red Blood Count 5.59 H, Mean Corpuscular Volume 79.8 L, Mean Corpuscular Hemoglobin 26.5 L, Mean Corpuscular Hemoglobin Concent 33.2, Red Cell Distribution Width 18.6 H, Calcium Level 8.3 L HI ECHEVARRIA MD July 08, 2018 13:59
[2018-07-08 14:00] VITALS: BP 168/79
[2018-07-08] MEDS ORDERED: diazePAM 5 MG TAB As Ordered ONE (16:30)
[2018-07-08] MEDS ORDERED: oxyCODONE 5MG TAB As Ordered ONE (16:30)
[2018-07-08] MEDS ORDERED: TRIAMCINOLONE ACETONIDE SUSP 40 MG/ML VIAL (J3301) As Ordered ONE (16:36)
[2018-07-08] MEDS ORDERED: BUPIVACAINE HCL 0.25% 10 ML VIAL As Ordered ONE (16:37)
[2018-07-08] MEDS ORDERED: BUPIVACAINE HCL 0.25% 30 ML VIAL As Ordered ONE (16:37)
[2018-07-08 22:00] VITALS: BP 152/62
[2018-07-09] MEDS: HEPARIN SOD (PORCINE) 5000 UNITS/ML VIAL SC SCH (05:34)
[2018-07-09 06:00] VITALS: BP 138/70
[2018-07-09 06:20] LABS: HEMATOCRIT 43.3 % (36.0-47.0); HEMOGLOBIN 14.3 g/dl (12.0-15.5); MEAN CORPUSCULAR VOLUME 81.9 fl (80.0-96.0); PLATELET COUNT, AUTOMATED 148 10^3/uL (150-450); RED BLOOD COUNT 5.29 10^6/uL (4.00-5.40)
[2018-07-09 06:53] LABS: BLOOD UREA NITROGEN 11 MG/DL (7-18); CALCIUM LEVEL 8.4 MG/DL (8.8-10.2); CARBON DIOXIDE LEVEL 24 MEQ/L (21-32); CHLORIDE LEVEL 109 MEQ/L (98-107); CREATININE FOR GFR 0.54 MG/DL (0.55-1.30); GLOMERULAR FILTRATION RATE > 60.0 (>45); GLUCOSE, FASTING 229 MG/DL (70-100); SODIUM LEVEL 141 MEQ/L (136-145)
[2018-07-09] MEDS: LOSARTAN 50 MG TAB PO SCH (08:46)
[2018-07-09] MEDS: HumaLOG INSULIN (NovoLOG) PER UNIT SC SCH (08:46)
[2018-07-09] MEDS: ATORVASTATIN 20 MG TAB PO SCH (08:46)
[2018-07-09] MEDS: PANTOPRAZOLE 40MG TAB (PROTONIX) PO SCH (08:47)
[2018-07-09] MEDS: GABAPENTIN 100 MG CAP PO SCH (08:47)
[2018-07-09] MEDS: FERROUS SULFATE 325MG TAB PO SCH (08:47)
[2018-07-09] MEDS: POTASSIUM CHLORIDE 10 MEQ SR TABLET PO SCH (08:47)
[2018-07-09] MEDS: SUCRALFATE 1 GM TAB PO SCH (08:47)
[2018-07-09] MEDS: LEVOTHYROXINE 25MCG TABLET (0.025MG) PO SCH (08:47)
[2018-07-09] MEDS: ASPIRIN 81 MG ENTERIC TAB PO SCH (08:47)
[2018-07-09 08:48] VITALS: BP 170/82
[2018-07-09] MEDS: LEVEMIR (INSULIN DETEMIR) 1 UNITS/0.01ML SC SCH (08:48)
[2018-07-09] MEDS: CARVedilol 3.125 MG TAB PO SCH (08:48)
[2018-07-09 09:56] VITALS: BP_SYST 170; BP_SYST 176; BP_SYST 184; BP_DIAS 82; BP_DIAS 84
[2018-07-09] MEDS ORDERED: CARV6.25 PO (10:17)
[2018-07-09] MEDS ORDERED: GABA-1171 PO (10:17)
--- NOTE | 2018-07-09 13:57 | DSES ---
DATE OF ADMISSION: 07/06/2018 DATE OF DISCHARGE: DISCHARGE DIAGNOSIS: Syncope. SECONDARY DIAGNOSES: 1. Orthostatic hypotension. 2. Medication adverse effect. 3. Acute on chronic pain. 4. Insulin-dependent diabetes mellitus. 5. Dyslipidemia. 6. Equivocal troponin. 7. Diastolic congestive heart failure (CHF), chronic. 8. Hypothyroidism. 9. History of liver cirrhosis. 10. Vitamin D deficiency. 11. Vitamin B12 deficiency. 12. Fibromyalgia. 13. Gastroesophageal reflux disease (GERD). 14. Iron deficiency anemia. HOSPITAL COURSE: The patient is a 68-year-old female who was admitted after a fall. She was found to be significantly orthostatic. She was admitted to the hospitalist service. Several of her antihypertensive medications were held, and then she was hypertensive and it was felt that this was more secondary to pain. It appears as though that perhaps she had been in significant pain and receiving higher and higher doses of antihypertensives in order to treat this. When receiving pain medication or when not in pain or upon standing, she began to have symptomatic hypotension. She was seen in consultation by the pain clinic during this stay and did receive initiation of gabapentin, as well as trigger point injection in the lower back for myalgia and neuropathy. She does follow with the pain clinic as an outpatient normally as well. She did tolerate this well and had good symptomatic improvement. She did clear physical therapy (PT). Once her pain was controlled, she was no longer orthostatic. Her blood pressure remained persistently elevated and at this time her blood pressure medications have been optimized. She is medically cleared for discharge home. SUBJECTIVE: This morning, the patient tells me that she is feeling well. She tells me that her pain is at a comfortable and tolerable baseline for her. She denies fevers, chills, chest pain, shortness of breath, lightheadedness, dizziness, nausea, vomiting, palpitations. OBJECTIVE: VITAL SIGNS: Temperature 97.6, pulse 85, blood pressure 170/82, oxygen saturation 96% on room air. GENERAL: She is a very pleasant, elderly, female lying in bed. She was without any symptoms. She did not appear to be in any acute distress. HEENT: Cranial nerves II through XII were grossly intact. She has moist mucous membranes. No elevation in central venous pressure. CARDIOVASCULAR: S1, S2 regular. ABDOMINAL EXAM: Obese. EXTREMITIES: No clubbing, cyanosis or edema. LABORATORY STUDIES: WBC 7.0, hemoglobin 14.3, platelet count 148. Chemistry panel: Sodium 141, potassium 4.0, chloride 109, bicarbonate 29, BUN 11, creatinine 0.5. IMAGING: The patient did have a lumbar spine MRI that revealed no significant interval change. There was some lateral recess and neuro foraminal stenosis at L4-5. She had a foot x-ray that revealed no traumatic abnormalities. She did have some heel spurs. She did have a femur x-ray that revealed calcifications but otherwise negative. She had a knee x-ray that revealed no fracture on the right. She had a hip x-ray that revealed no traumatic abnormality. She did have a CT angiography of her chest revealing no pulmonary embolus, minimal scattered fibroatelectatic change. She had a duplex of the lower extremities that was negative for any evidence of deep vein thrombosis (DVT). She had a cervical spine CT that revealed degenerative disc and bony changes from C5 to C7 with borderline spinal stenosis at C5-C6. Otherwise, negative CT of the cervical spine. No acute fracture or subluxation. She also did undergo a CT scan of the head, which was a negative noncontrast study. Essentially all of her imaging was fairly unremarkable. ASSESSMENT AND PLAN: This is a 68-year-old female with syncope and chronic pain. 1. Syncope secondary to medication adverse effect. At this time, she is mildly hypertensive, but her pain is controlled. As such, I will continue her titrated up dose of carvedilol that she has been receiving thus far. I will also resume her home furosemide. In addition to this, I am holding the higher dose of her home carvedilol, which was three times a day at 12.5 mg. I am also holding her isosorbide mononitrate. We will have her reevaluate her blood pressure with the primary care provider within the next week and ensuring that her pain is optimally controlled. 2. Acute on chronic pain. Pain clinic consult is greatly appreciated. She will have outpatient followup with the pain clinic. She is not requiring any narcotics. We did start her on gabapentin. She is otherwise to continue her home regimen for pain and further medications to be determined by the clinic. At this time, she has cleared physical therapy (PT) and is independent. 3. Chest pain upon presentation, probably secondary to her fall. She did not have any electrocardiogram (EKG) changes. She did have an equivocal troponin. 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 4. Diastolic congestive heart failure (CHF), chronic and compensated. Her furosemide was held during her admission but is being restarted upon discharge. She is well compensated at this time. 5. Hypothyroidism. She is continued on levothyroxine. 6. History of nonalcoholic steatohepatitis (ARNOLD) cirrhosis. There is no issue regarding this during her stay. 7. Vitamin D and B12 deficiencies. She was continued on supplementation. 8. Fibromyalgia. She was continued on her home regimen of medication. 9. Gastroesophageal reflux disease (GERD). She was continued on Protonix and Carafate. 10. Iron deficiency anemia. She was continued on supplementation. Her hemoglobin was stable and she was not anemic during this stay. DISPOSITION: The patient is being discharged home. She has been cleared by physical therapy. She will followup with her primary care provider in 7 days. Followup with pain clinic as scheduled. Followup with cardiology to have ischemic workup and potentially stress testing. Her activity is as prior to admission. Diet is as prior to admission. She is to return to the emergency room if her symptoms worsen. MEDICATIONS: At the time of discharge: - carvedilol 6.25 mg twice a day - gabapentin 100 mg three times a day - aspirin 81 mg daily - atorvastatin 20 mg daily - Pradaxa 5 mg daily - ferrous sulfate 325 mg daily - furosemide 20 mg daily - Levemir 40 units twice a day - NovoLog 10 units before meals - Synthroid 25 mcg daily - lidocaine jelly twice a day as needed for pain to the knee - losartan 100 mg daily - metformin 1 gram twice a day - Zofran 4 mg every 6 hours as needed for nausea or vomiting - pantoprazole 40 mg daily - potassium chloride 10 mEq twice a day - Carafate 1 gram twice a day - tizanidine 4 mg twice a day in the afternoon and evening 45 minutes was spent organizing disposition.
== END 2018-07-09 12:15 | disposition home or self-care (01) | DRG 312 ==
LOC: M ED 18:43 → M ED INP 21:55 → M MS5PR 23:36 → M PCU 07-06 01:28 → OBSVTOIN 07-06 17:00 → M MSPAV 07-07 22:38
PROVIDERS: ADMIT Internal Medicine; ATTEND Internal Medicine
DX: I95.2 Hypotension due to drugs (principal); I50.32 Chronic diastolic (congestive) heart failure; D50.9 Iron deficiency anemia, unspecified; M79.7 Fibromyalgia; K21.9 Gastro-esophageal reflux disease without esophagitis; E55.9 Vitamin D deficiency, unspecified; E53.8 Deficiency of other specified B group vitamins; E03.9 Hypothyroidism, unspecified; E78.5 Hyperlipidemia, unspecified; K74.69 Other cirrhosis of liver; E11.40 Type 2 diabetes mellitus with diabetic neuropathy, unspecified; Z79.899 Other long term (current) drug therapy; Z79.82 Long term (current) use of aspirin; I25.2 Old myocardial infarction; I25.10 Atherosclerotic heart disease of native coronary artery without angina pectoris; T46.5X5A Adverse effect of other antihypertensive drugs, initial encounter

== ENCOUNTER → 2018-07-08 | Outpatient (CLI) | payer OTHER, SELFPAY ==
[~2018-07-08] MED LIST changes: +ASPI81TA85 PO; +BUPIVACAINE HCL 0.25% 10 ML VIAL ONE; +BUPIVACAINE HCL 0.25% 30 ML VIAL ONE; +GABA-1171 PO; +LIDO2JELLY TOP; +ONDA-195 PO; +TRIAMCINOLONE ACETONIDE SUSP 40 MG/ML VIAL (J3301) ONE; +oxyCODONE 5MG TAB ONE
--- NOTE | 2018-07-19 23:27 | ECWPNPC ---
PATIENT NAME: MARIANA SMITH : 1950 GENDER: FEMALE VISIT DATE: 07/08/2018 DISCHARGE DATE: 07/08/18 0737 VISIT LOCKED DATE TIME: PHYSICIAN: GISELLE PAYNE MD RESOURCE: GISELLE PAYNE MD REASON FOR APPOINTMENT 1. TPI LOW BACK-INPATIENT HISTORY OF PRESENT ILLNESS HISTORY OF PRESENT ILLNESS: PAIN THE PATIENT DESCRIBES THE PAIN... FALL RISK SCREENING: SCREENING :NO FALLS REPORTED IN THE LAST YEAR PAST MEDICAL HISTORY T2DM NID HYPERLIPIDEMIA VITAMIN B12 DEFICIENCY - RECENT LEVELS HIGH VITAMIN D DEFICIENCY - DENIES HYPOTHYROIDISM HYPERTENSION RIGHT HUMERUS FX 05/2017 TENDONITIS/CARPAL TUNNEL TUNNEL/NEUROPATHY IN BOTH HANDS - DR. LOVE FIBROMYALGIA ABDOMINAL HERNIA CAD SP NSTEMI 07/08/17 WITH 1 ANNABEL TO [id number] ECHO 07/08/17 AT [facility]: EF 50%, GRADE 2 DIASTOLIC DYSFUNCTION, MILD LVH CIRRHOSIS/ARNOLD SEEN ON CT AND ABD U/S 06/2017 - REFERRED TO DR. OSHEA COLONOSCOPY AND ENDOSCOPY-07/2017 JEONG'S CYST LEFT LEG WITH THIGH PAIN CHF ALLERGIES TEQUIN: RASH - ALLERGY SURGICAL HISTORY TONSILLECTOMY A CHILD SALIVARY GLAND PUS GLAND REMOVAL 1952 1981 GALLBLADDER REMOVAL 1984 HYSTERECTOMY FOR ENDOMETRIAL POLYPS FISTULA REPAIR IN PERINEAL AREA 1992 EGD (NML), COLONOSCOPY (NB IH, NML) - [facility], R/P COLONOSCOPY IN 05/2012 DRUG-ELUTING STENT TO LAD AT [facility] 07/08/2017 EGD (GASTRIC EROSIONS, MILD GASTROPATHY) AND (DIVERTICULOSIS, OTHERWISE NML) - DR. VEE 07/2017 CATARACT SURGERY - BOTH EYES 2017 FAMILY HISTORY FATHER: , OF A BLEEDING ULCER; DOESN'T KNOW ANY OTHER HISTORY MOTHER: , DM2, KIDNEY FAILURE, ACROMEGALY SIBLINGS: BROTHER HAS MS, DM2 1 BROTHER(S) . 1DAUGHTER(S) - HEALTHY. DENIES KNOWN FAMILY HISTORY OF BREAST OR COLON CANCER.\NBROTHER - DM II, MS\NDAUGHTER - FRACTURES IN BACK. SOCIAL HISTORY GENERAL: TOBACCO USE ARE YOU A:FORMER SMOKER HOW LONG HAS IT BEEN SINCE YOU LAST SMOKED?> 10 YEARS HIV / HEP-C SCREENING HIV TEST OFFERED TO PATIENT:YES DATE OFFERED:06/26/2017 TEST ACCEPTED:NO HEP-C TEST OFFERED TO PATIENT:YES DATE OFFERED:06/26/2017 REASON:PATIENT DECLINED TEST ACCEPTED:NO REASON:PATIENT DECLINED BROCHURE PROVIDED TO PATIENTYES OTHERS AT HOME: NONE. EDUCATION LEVEL OF EDUCATION:HIGH SCHOOL DIET: REGULAR. LANGUAGE LANGUAGES SPOKEN:DIVEHI DOMESTIC VIOLENCE DO YOU FEEL SAFE IN YOUR ENVIRONMENT?YES RECREATIONAL DRUG USE DRUG USE?NO EXERCISE: NO REGULAR EXERCISE. LEARNING BARRIERS / SPECIAL NEEDS CHANGE FROM LAST VISIT?NO BARRIERS TO LEARNING?NO HEARING IMPAIRED?NO VISION IMPAIRED?YES COGNITIVELY IMPAIRED?NO :CORRECTIVE LENSES READING GLASSES READINESS TO LEARN?YES LEARNING PREFERENCES?NO LEARNING CAPABILITIES PRESENT?YES EMOTIONAL BARRIERS?NO SPECIAL DEVICES?YES :CANE POWER CHAIR GLASS LINED TANK REPAIRER NEEDED?NO PAIN CLINIC PFS, CLERGY, PUBLIC HEALTH REFERRALS HAS THE PATIENT BEEN EDUCATED REGARDING HIS/HER PLAN OF CARE?YES HAS THE PATIENT BEEN EDUCATED REGARDING PAIN, THE RISK FOR PAIN, THE IMPORTANCE OF EFFECTIVE PAIN MANAGEMENT, AND THE PAIN ASSESSMENT PROCESS?YES LATEX QUESTIONNAIRE LATEX ALLERGY : HAVE YOU EVER DEVELOPED ANY TYPE OF REACTION AFTER HANDLING LATEX PRODUCTS SUCH RUBBER GLOVES, CONDOMS, DIAPHRAGMS, BALLOONS, SOCKS, OR UNDERWEAR?NO LATEX ALLERGY : HAVE YOU EVER DEVELOPED ANY TYPE OF REACTION DURING OR AFTER DENTAL APPOINTMENT, VAGINAL/RECTAL EXAMINATION, SURGICAL PROCEDURE, OR ANY OTHER EXPOSURE?NO DATE ASKED : 05/05/2018 LATEX RISK : HAVE YOU EVER HAD ANY DIFFICULTY BREATHING OR HIVES AFTER EATING OR HANDLING ANY FRUITS, OR VEGETABLES; SUCH KIWI, BANANAS, STONE FRUITS, OR CHESTNUTSNO LATEX RISK : DO YOU HAVE A PREVIOUS PERSONAL HISTORY OF MORE THAN NINE SURGERIES, SPINA BIFIDA, OR REPEATED CATHERTIZATIONS? NO LATEX RISK : ARE YOU FREQUENTLY EXPOSED TO LATEX PRODUCTS IN YOUR OCCUPATION?NO CAFFEINE CAFFEINE USE?YES HOW OFTEN AND HOW MUCH? 1 CUP OF COFFEE OCCASIONALLY 1 SODA OCCASIONALLY ADVANCE DIRECTIVE ADVANCE DIRECTIVE DISCUSSED WITH PATIENT:YES HCP - DEEPAK MILLER (DAUGHTER) BAPTISM [id number] YARSANISM MARITAL STATUS: . ALCOHOL SCREENING DID YOU HAVE A DRINK CONTAINING ALCOHOL IN THE PAST YEAR?YES HOW OFTEN DID YOU HAVE SIX OR MORE DRINKS ON ONE OCCASION IN THE PAST YEAR?NEVER (0 POINTS) HOW MANY DRINKS DID YOU HAVE ON A TYPICAL DAY WHEN YOU WERE DRINKING IN THE PAST YEAR?1 OR 2 (0 POINTS) HOW OFTEN DID YOU HAVE A DRINK CONTAINING ALCOHOL IN THE PAST YEAR?MONTHLY OR LESS (1 POINT) POINTS1 INTERPRETATIONNEGATIVE OCCUPATION: DISABLED. SEXUAL HX HAD SEX IN THE LAST 12 MONTHS (VAGINAL, ORAL, OR ANAL)?NO HAVE YOU EVER HAD AN STD?NO REVIEWED WITH PATIENT 05/30/18 0959 JS. HOSPITALIZATION/MAJOR DIAGNOSTIC PROCEDURE SURGERIES ABOVE [facility] 07/07/2017 GI BLEED C ACUTE BLOOD LOSS ANEMIA AND ASAF I (CR TO 1.5) C LA 3.7-ALEN HGB 8.5 SP 2U PRBCS TO 10 AT DC, EGD/COLON C MILD GASTRIC HTN C FEW FLECKS OF HEME IN GASTRIC BODY, SIG LOSIS, CTA AP NAD-DCED ON PRESENTING REGIMEN OF ASA 81 AND GINGER 90 BID, ADDED P 08/02-02/11 GI BLEED 09/17/17 ACUTE GASTROENTERITIS SECONDARY TO NOROVIRUS 02/2018 GI BLEED 04/23/2018 REVIEW OF SYSTEMS REVIEWED BY: PROVIDER: . CONSTITUTIONAL: ANY CHANGE IN YOUR MEDICAL CONDITION? NO . CHILLS NO . FEVER NO . INFECTION: DO YOU HAVE NEW INFECTIONS? NO . DO YOU HAVE HISTORY OF MRSA? NO . MUSCULOSKELETAL: ANY NEW PATTERNS OF PAIN OR NUMBNESS? YES, BURNING TO RIGHT KNEE RADIATING UP AND DOWN FROM KNEE . GASTROENTEROLOGY: ANY NEW CHANGE IN BOWEL CONTROL? YES, LAST BOWEL MOVEMENT SATURDAY, PT STATES POOR INTAKE, LOSS OF APPETITE . GENITOURINARY: ANY NEW CHANGE IN BLADDER CONTROL? NO . IS THERE A CHANCE YOU COULD BE ? NO . HEMATOLOGY/LYMPH: DO YOU TAKE ANY BLOOD THINNERS? (FOR EXAMPLE- COUMADIN, PLAVIX, AGGRENOX, PLATEL, PRADAXA, OR XARELTO) YES, HEPARIN 5000 U SC 07/08/18 @ 0531 . WHEN WAS YOUR LAST DOSE? DATE: TIME: . NEUROLOGY: HAVE YOU FALLEN IN THE PAST 12 MONTHS? YES, FELL SATURDAY FROM WEAKNESS, PT WAS ADMITTED TO [facility] . ANY NEW EXTREMITY NUMBNESS OR WEAKNESS? NO . CARDIOLOGY: DO YOU HAVE A PACEMAKER OR DEFIBRILLATOR? NO . RESPIRATORY: HAVE YOU BEEN SICK IN THE PAST WEEK? NO . FEVER NO . FLU LIKE SYMPTOMS? NO . COUGH NO . INTEGUMENTARY: DO YOU HAVE ANY RASHES OR OPEN SORES? YES, SCRATCH ON FINGER FROM CAT . ALLERGIC/IMMUNO: ARE YOU ALLERGIC TO IV DYE? NO . ANY NEW ALLERGIES? NO . PSYCHIATRIC: DO YOU HAVE THOUGHTS OF HURTING YOURSELF OR SOMEONE ELSE? NO . ARE YOU ABUSED, NEGLECTED, OR IN AN UNSAFE ENVIRONMENT? NO . ENDOCRINOLOGY: ARE YOU DIABETIC? YES, FS 07/08/18 @ 1140 294 . OTHER: DO YOU NEED ANY PRESCRIPTIONS? NO . IF YES, PLEASE LIST: ____ . ANY NEW PROBLEMS WITH YOUR MEDICATIONS? NO . WHEN DID YOU LAST EAT? 07/08/18 1130 . WHEN DID YOU LAST DRINK? 07/08/18 1130 . WHAT DID YOU LAST DRINK? APPLE JUICE, JC HOSSEIN, CXN BROTH . NAME OF PERSON DRIVING YOU HOME? ____ . DO YOU HAVE ANY OTHER QUESTIONS OR CONCERNS NO . VITAL SIGNS WT 185 LBS, HT 63.5 IN, BMI 32.25 INDEX, BP 179/74 MM HG, HR 71 /MIN, RR 18 /MIN, TEMP 99.1 F, OXYGEN SAT % 97%, NA INITIALS SC 15:51, REVIEWED BY: EM. ASSESSMENTS MYALGIA, OTHER SITE - M79.18 (PRIMARY) PROCEDURES PN TRIGGER POINT INJECTION WITH STEROIDS PRE PROCEDURE DIAGNOSIS 1. MYALGIA 2. PAIN AT BILATERAL LOW BACK AREA POST PROCEDURE DIAGNOSIS 1. MYALGIA 2. PAIN AT BILATERAL LOW BACK AREA PROCEDURE TRIGGER POINT INJECTION AT BILATERAL LOW BACK AREA SURGEON DR. GISELLE PAYNE TURNER MACHINE NONE ANESTHESIA LOCAL PRE PROCEDURE NOTE THE PATIENT HAS A HISTORY OF CHRONIC PAIN AT THE RIGHT AND LEFT LOW BACK AREA. I EVALUATE THE PATIENT AND REVIEWED THE CHART. THERE IS EVIDENCE OF BANDS OF TISSUE WITH RESTRICTION OF MOVEMENT AND PRESENCE OF TRIGGER POINT AT THE AFFECTED AREA. I WENT OVER THE RISKS, ALTERNATIVES, AND BENEFITS ASSOCIATED WITH THIS PROCEDURE. THE PATIENT WOULD LIKE TO PROCEED AND GIVE CONSENT TO PERFORMED THE PROCEDURE. THE PATIENT DENIES UNEXPLAINABLE WEIGHT LOSS, FEVER, CHILLS, OR NEW CHANGES IN URINARY OR BOWEL CONTROL DESCRIPTION OF PROCEDURE THE PATIENT WAS BROUGHT TO THE PROCEDURE ROOM AND PLACED IN THE SITTING POSITION. THE AREA WAS CLEANED WITH ALCOHOL. THE PROCEDURE WAS DONE USING ASEPTIC STERILE TECHNIQUE. I CHECKED LATERALITY AND THE LEVEL WHERE THE PROCEDURE WAS GOING TO BE PERFORMED WITH THE PATIENT AND THE SUPPORTING STAFF AT THE MOMENT OF THE TIME OUT IN THE PROCEDURE ROOM. USING A 25-GAUGE NEEDLE, TRIGGER POINTS WERE INJECTED AT THE RIGHT AND LEFT LOW BACK AREA WITH A TOTAL OF 40 ML OF BUPIVACAINE 0.25% AND KENALOG 40 MG. THERE WAS NO EVIDENCE OF BLOOD, PARESTHESIA OR CEREBROSPINAL FLUID DURING THE PROCEDURE. THE PATIENT WAS SENT TO THE RECOVERY ROOM. THE PATIENT WAS MOVING THE EXTREMITIES AND DOING WELL. THERE WAS NO COMPLICATION DURING THE PROCEDURE POST PROCEDURE NOTE THE PATIENT WILL BE SEEN IN A FOLLOW UP IN THE NEXT FEW WEEKS. INSTRUCTIONS WERE GIVEN, QUESTIONS WERE ANSWERED, AND THE PATIENT EXPRESSED UNDERSTANDING AND AGREES WITH THE PLAN. I, CLAUDIA NINO, DOCUMENTED THE ABOVE INFORMATION ACTING A SCRIBE FOR DR. PAYNE. I HAVE REVIEWED THE ABOVE DOCUMENT, WRITTEN BY CLAUDIA PATELIBElidia AND I VERIFY THAT IT IS ACCURATE. PROCEDURE CODES 84591 INJ TRIGGER POINT / [employer] DISPOSITION & COMMUNICATION FOLLOW UP 3 WEEKS ELECTRONICALLY SIGNED BY GISELLE PAYNE MD, MD ON 07/19/2018 AT 05:34 PM EDT DISCLAIMER : THIS IS A VISIT SUMMARY EXTRACTED FROM THE [employer] CHART. IT IS NOT A COPY OF THE [employer] PROGRESS NOTE. GLORIA
== END ==
LOC: M PAIN 13:45
PROVIDERS: ATTEND Anesthesiology
DX: M79.18 Myalgia, other site (principal); M54.5 Low back pain; E11.9 Type 2 diabetes mellitus without complications; E78.5 Hyperlipidemia, unspecified; E03.9 Hypothyroidism, unspecified; I10 Essential (primary) hypertension; Z88.8 Allergy status to other drugs, medicaments and biological substances; Z86.79 Personal history of other diseases of the circulatory system; Z87.891 Personal history of nicotine dependence
CPT/HCPCS: 20552; J3301

== ENCOUNTER → 2018-08-08 | Outpatient (REF) | payer OTHER ==
[~2018-08-08] MED LIST changes: -BUPIVACAINE HCL 0.25% 10 ML VIAL ONE; -BUPIVACAINE HCL 0.25% 30 ML VIAL ONE; -TRIAMCINOLONE ACETONIDE SUSP 40 MG/ML VIAL (J3301) ONE; -oxyCODONE 5MG TAB ONE
[2018-08-08 13:22] LABS: HEMOGLOBIN A1c 8.3 %
== END ==
LOC: M SFHCPLAZ 10:05
PROVIDERS: ATTEND Family Medicine
DX: E11.8 Type 2 diabetes mellitus with unspecified complications (principal); E03.9 Hypothyroidism, unspecified
CPT/HCPCS: 36415; 83036; 84443; G0463

== ENCOUNTER → 2018-08-15 | Outpatient (CLI) | payer OTHER ==
--- NOTE | 2018-08-25 00:02 | ECWPNPC ---
PATIENT NAME: MARIANA SMITH : 1950 GENDER: FEMALE VISIT DATE: 08/15/2018 DISCHARGE DATE: 08/15/18 1251 VISIT LOCKED DATE TIME: PHYSICIAN: GISELLE PAYNE MD RESOURCE: GISELLE PAYNE MD REASON FOR APPOINTMENT 1. POST TPI HISTORY OF PRESENT ILLNESS HISTORY OF PRESENT ILLNESS: PAIN THE PATIENT DESCRIBES THE PAIN... 68 YEAR OLD FEMALE PATIENT WITH A HISTORY OF CHRONIC LOW BACK PAIN. THE PATIENT DESCRIBES THE PAIN ACHING, BURNING, TENDER, SHARP, STABBING, AND CONTINUOUS WITH A PAIN SCORE OF 4-8/10 DEPENDING ON PHYSICAL ACTIVITY. THE PATIENT SAYS HER PAIN STARTS IN HER LOW BACK AREA AND RADIATES DOWN HER RIGHT LEG. THE PATIENT RECEIVED A TRIGGER POINT INJECTION ON 07/08/2018 AND REPORTS HAVING GOOD PAIN RELIEF FOR SEVERAL WEEKS. THE PATIENT SAYS SHE HAS USED HYDROCODONE IN THE PAST THAT HAS HELPED WITH HER PAIN CONTROL. PATIENT DENIES UNEXPLAINABLE WEIGHT LOSS, FEVER, CHILLS, NEW CHANGES ON HER URINARY OR BOWEL CONTROL. FALL RISK SCREENING: SCREENING :NO FALLS REPORTED IN THE LAST YEAR CURRENT MEDICATIONS TAKING ATORVASTATIN CALCIUM 20 MG TABLET 1 TABLET ORALLY ONCE A DAY TAKING CARAFATE 1 GM TABLET TAKE ONE TABLET BY MOUTH THREE TIMES A DAY WITH MEALS ORALLY BID TAKING LEVOTHYROXINE SODIUM 25 MCG TABLET 1 TABLET ON AN EMPTY STOMACH IN THE MORNING ORALLY ONCE A DAY TAKING ONDANSETRON HCL 4 MG TABLET 1 TABLETS ORALLY EVERY 6 HOURS, NOTES: NEEDED TAKING PANTOPRAZOLE SODIUM 40 MG TABLET DELAYED RELEASE 1 TABLET ORALLY ONCE A DAY TAKING ASPIRIN LOW DOSE 81 MG TABLET DELAYED RELEASE TAKE ONE TABLET BY MOUTH EVERY DAY TAKING FERROUS SULFATE 325 (65 FE) MG TABLET 1 TABLET ORALLY ONCE A DAY TAKING POTASSIUM CHLORIDE 10 MEQ CAPSULE EXTENDED RELEASE 1 CAPSULE WITH FOOD ORALLY TWICE A DAY TAKING CARVEDILOL 12.5 MG TABLET 0.5 ORALLY BID TAKING FUROSEMIDE 20 MG TABLET 1 TABLET ORALLY ONCE A DAY, NOTES: UNSURE ABOUT DOSE TAKING LOSARTAN POTASSIUM 100 MG TABLET 1 TABLET ORALLY ONCE A DAY TAKING TIZANIDINE HCL 4 MG TABLET 1 TABLET ORALLY TWICE DAILY TAKING FARXIGA 10 MG TABLET 1 TABLET ORALLY ONCE A DAY TAKING METFORMIN HCL 1000 MG TABLET 1 TABLET WITH MEALS ORALLY TWICE A DAY TAKING NOVOLIN R 100 UNIT/ML SOLUTION 10 UNITS SUBCUTANEOUSLY 4 TIMES DAILY TAKING LEVEMIR FLEXTOUCH 100 UNIT/ML SOLUTION PEN-INJECTOR 40 UNITS SUBCUTANEOUS BID MEDICATION LIST REVIEWED AND RECONCILED WITH THE PATIENT PAST MEDICAL HISTORY T2DM NID HYPERLIPIDEMIA VITAMIN B12 DEFICIENCY - RECENT LEVELS HIGH VITAMIN D DEFICIENCY - DENIES HYPOTHYROIDISM HYPERTENSION RIGHT HUMERUS FX 05/2017 TENDONITIS/CARPAL TUNNEL TUNNEL/NEUROPATHY IN BOTH HANDS - DR. LOVE FIBROMYALGIA ABDOMINAL HERNIA CAD SP NSTEMI 07/08/17 WITH 1 ANNABEL TO [id number] ECHO 07/08/17 AT [facility]: EF 50%, GRADE 2 DIASTOLIC DYSFUNCTION, MILD LVH CIRRHOSIS/ARNOLD SEEN ON CT AND ABD U/S 06/2017 - REFERRED TO DR. OSHEA COLONOSCOPY AND ENDOSCOPY-07/2017 JEONG'S CYST LEFT LEG WITH THIGH PAIN CHF ALLERGIES TEQUIN: RASH - ALLERGY SURGICAL HISTORY TONSILLECTOMY A CHILD SALIVARY GLAND PUS GLAND REMOVAL 1952 1981 GALLBLADDER REMOVAL 1984 HYSTERECTOMY FOR ENDOMETRIAL POLYPS FISTULA REPAIR IN PERINEAL AREA 1992 EGD (NML), COLONOSCOPY (NB IH, NML) - [facility], R/P COLONOSCOPY IN 05/2012 DRUG-ELUTING STENT TO LAD AT [facility] 07/08/2017 EGD (GASTRIC EROSIONS, MILD GASTROPATHY) AND (DIVERTICULOSIS, OTHERWISE NML) - DR. VEE 07/2017 CATARACT SURGERY - BOTH EYES 2017 FAMILY HISTORY FATHER: , OF A BLEEDING ULCER; DOESN'T KNOW ANY OTHER HISTORY MOTHER: , DM2, KIDNEY FAILURE, ACROMEGALY SIBLINGS: BROTHER HAS MS, DM2 1 BROTHER(S) . 1DAUGHTER(S) - HEALTHY. DENIES KNOWN FAMILY HISTORY OF BREAST OR COLON CANCER.\NBROTHER - DM II, MS\NDAUGHTER - FRACTURES IN BACK. SOCIAL HISTORY GENERAL: TOBACCO USE ARE YOU A:FORMER SMOKER HOW LONG HAS IT BEEN SINCE YOU LAST SMOKED?> 10 YEARS HIV / HEP-C SCREENING HIV TEST OFFERED TO PATIENT:YES DATE OFFERED:06/26/2017 TEST ACCEPTED:NO HEP-C TEST OFFERED TO PATIENT:YES DATE OFFERED:06/26/2017 REASON:PATIENT DECLINED TEST ACCEPTED:NO REASON:PATIENT DECLINED BROCHURE PROVIDED TO PATIENTYES OTHERS AT HOME: NONE. EDUCATION LEVEL OF EDUCATION:HIGH SCHOOL DIET: REGULAR. LANGUAGE LANGUAGES SPOKEN:CHINESE DOMESTIC VIOLENCE DO YOU FEEL SAFE IN YOUR ENVIRONMENT?YES RECREATIONAL DRUG USE DRUG USE?NO EXERCISE: NO REGULAR EXERCISE. LEARNING BARRIERS / SPECIAL NEEDS CHANGE FROM LAST VISIT?NO BARRIERS TO LEARNING?NO HEARING IMPAIRED?NO VISION IMPAIRED?YES COGNITIVELY IMPAIRED?NO :CORRECTIVE LENSES READING GLASSES READINESS TO LEARN?YES LEARNING PREFERENCES?NO LEARNING CAPABILITIES PRESENT?YES EMOTIONAL BARRIERS?NO SPECIAL DEVICES?YES :CANE POWER CHAIR JAVA JSF DEVELOPER NEEDED?NO PAIN CLINIC PFS, CLERGY, PUBLIC HEALTH REFERRALS HAS THE PATIENT BEEN EDUCATED REGARDING HIS/HER PLAN OF CARE?YES HAS THE PATIENT BEEN EDUCATED REGARDING PAIN, THE RISK FOR PAIN, THE IMPORTANCE OF EFFECTIVE PAIN MANAGEMENT, AND THE PAIN ASSESSMENT PROCESS?YES LATEX QUESTIONNAIRE LATEX ALLERGY : HAVE YOU EVER DEVELOPED ANY TYPE OF REACTION AFTER HANDLING LATEX PRODUCTS SUCH RUBBER GLOVES, CONDOMS, DIAPHRAGMS, BALLOONS, SOCKS, OR UNDERWEAR?NO LATEX ALLERGY : HAVE YOU EVER DEVELOPED ANY TYPE OF REACTION DURING OR AFTER DENTAL APPOINTMENT, VAGINAL/RECTAL EXAMINATION, SURGICAL PROCEDURE, OR ANY OTHER EXPOSURE?NO DATE ASKED : 05/05/2018 LATEX RISK : HAVE YOU EVER HAD ANY DIFFICULTY BREATHING OR HIVES AFTER EATING OR HANDLING ANY FRUITS, OR VEGETABLES; SUCH KIWI, BANANAS, STONE FRUITS, OR CHESTNUTSNO LATEX RISK : DO YOU HAVE A PREVIOUS PERSONAL HISTORY OF MORE THAN NINE SURGERIES, SPINA BIFIDA, OR REPEATED CATHERTIZATIONS? NO LATEX RISK : ARE YOU FREQUENTLY EXPOSED TO LATEX PRODUCTS IN YOUR OCCUPATION?NO CAFFEINE CAFFEINE USE?YES HOW OFTEN AND HOW MUCH? 1 CUP OF COFFEE OCCASIONALLY 1 SODA OCCASIONALLY ADVANCE DIRECTIVE ADVANCE DIRECTIVE DISCUSSED WITH PATIENT:YES HCP - DEEPAK MILLER (DAUGHTER) MU-ISM [id number] JEW MARITAL STATUS: . ALCOHOL SCREENING DID YOU HAVE A DRINK CONTAINING ALCOHOL IN THE PAST YEAR?YES HOW OFTEN DID YOU HAVE SIX OR MORE DRINKS ON ONE OCCASION IN THE PAST YEAR?NEVER (0 POINTS) HOW MANY DRINKS DID YOU HAVE ON A TYPICAL DAY WHEN YOU WERE DRINKING IN THE PAST YEAR?1 OR 2 (0 POINTS) HOW OFTEN DID YOU HAVE A DRINK CONTAINING ALCOHOL IN THE PAST YEAR?MONTHLY OR LESS (1 POINT) POINTS1 INTERPRETATIONNEGATIVE OCCUPATION: DISABLED. SEXUAL HX HAD SEX IN THE LAST 12 MONTHS (VAGINAL, ORAL, OR ANAL)?NO HAVE YOU EVER HAD AN STD?NO REVIEWED WITH PATIENT 05/30/18 2594 JSREVIEWED WITH PT 08/15/18 1344 LAS. HOSPITALIZATION/MAJOR DIAGNOSTIC PROCEDURE SURGERIES ABOVE [facility] 07/07/2017 GI BLEED C ACUTE BLOOD LOSS ANEMIA AND ASAF I (CR TO 1.5) C LA 3.7-ALEN HGB 8.5 SP 2U PRBCS TO 10 AT DC, EGD/COLON C MILD GASTRIC HTN C FEW FLECKS OF HEME IN GASTRIC BODY, SIG LOSIS, CTA AP NAD-DCED ON PRESENTING REGIMEN OF ASA 81 AND GINGER 90 BID, ADDED P 08/02-02/11 GI BLEED 09/17/17 ACUTE GASTROENTERITIS SECONDARY TO NOROVIRUS 02/2018 GI BLEED 04/23/2018 FALL WITH LOW BLOOD PRESSURE 07/04/2018 REVIEW OF SYSTEMS REVIEWED BY: PROVIDER: GISELLE PAYNE MD . CONSTITUTIONAL: ANY CHANGE IN YOUR MEDICAL CONDITION? NO . CHILLS NO . FEVER NO . INFECTION: DO YOU HAVE NEW INFECTIONS? NO . DO YOU HAVE HISTORY OF MRSA? NO . MUSCULOSKELETAL: ANY NEW PATTERNS OF PAIN OR NUMBNESS? PT HAD TRIGGER POINT INJECTIONS 07/05/18, REPORTS GOOD RESULTS IN BACK, BUT PAIN CONTINUES IN LEGS/HIPS . GASTROENTEROLOGY: ANY NEW CHANGE IN BOWEL CONTROL? NO . GENITOURINARY: ANY NEW CHANGE IN BLADDER CONTROL? NO . IS THERE A CHANCE YOU COULD BE ? NO . HEMATOLOGY/LYMPH: DO YOU TAKE ANY BLOOD THINNERS? (FOR EXAMPLE- COUMADIN, PLAVIX, AGGRENOX, PLATEL, PRADAXA, OR XARELTO) NO . WHEN WAS YOUR LAST DOSE? DATE: TIME: . NEUROLOGY: HAVE YOU FALLEN IN THE PAST 12 MONTHS? NO . ANY NEW EXTREMITY NUMBNESS OR WEAKNESS? NO . CARDIOLOGY: DO YOU HAVE A PACEMAKER OR DEFIBRILLATOR? NO . RESPIRATORY: HAVE YOU BEEN SICK IN THE PAST WEEK? NO . FEVER NO . FLU LIKE SYMPTOMS? NO . COUGH NO . INTEGUMENTARY: DO YOU HAVE ANY RASHES OR OPEN SORES? NO . ALLERGIC/IMMUNO: ARE YOU ALLERGIC TO IV DYE? NO . ANY NEW ALLERGIES? NO . PSYCHIATRIC: DO YOU HAVE THOUGHTS OF HURTING YOURSELF OR SOMEONE ELSE? NO . ARE YOU ABUSED, NEGLECTED, OR IN AN UNSAFE ENVIRONMENT? NO . ENDOCRINOLOGY: ARE YOU DIABETIC? NO . OTHER: DO YOU NEED ANY PRESCRIPTIONS? NO . IF YES, PLEASE LIST: ____ . ANY NEW PROBLEMS WITH YOUR MEDICATIONS? NO . WHEN DID YOU LAST EAT? ____ . WHEN DID YOU LAST DRINK? ____ . WHAT DID YOU LAST DRINK? ____ . NAME OF PERSON DRIVING YOU HOME? ____ . DO YOU HAVE ANY OTHER QUESTIONS OR CONCERNS WOULD LIKE TO DISCUSS KNEE INJECTIONS AND VICODIN . VITAL SIGNS WT 182.6 LBS, HT 63.5 IN, BMI 31.84 INDEX, BP 158/71 MM HG, HR 63 /MIN, RR 18 /MIN, TEMP 97.2 F, OXYGEN SAT % 99%, NA INITIALS SC 11:27. EXAMINATION GENERAL EXAMINATION: PATIENT IS ALERT O X 3 AND COOPERATIVE. PATIENT IS IN A WHEELCHAIR. RIGHT LEG IS WEAKER AT EXTENSION AND FLEXION. THERE IS HYPERPATHIA OVER BOTH LEGS. MRI OF THE LUMBAR SPINE DONE ON 07/06/2018 SHOWS A BULGING DISC AT L4-L5 AND L5-S1. 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 SMITH'S PAIN MANAGEMENT CASE. I WILL REQUEST A PROVIDER TO PROVIDER AGREEMENT FROM THE PATIENT'S PRIMARY CARE PHYSICIAN REGARDING HER PAIN MEDICATION. I WILL START THE PATIENT ON GABAPENTIN FOR THE NEUROPATHIC PAIN AND SHE WILL INCREASE IT SLOWLY. I WILL ALSO START THE PATIENT ON HYDROCODONE 1 TABLET PER DAY NEEDED FOR THE SOMATIC PAIN. ISTOP _#[id number] WAS REVIEWED. THE PATIENT WILL SIGN A NARCOTIC AGREEMENT AND PERFORM A URINE TOXICOLOGY TODAY. THE PATIENT WILL FOLLOW UP IN 2 MONTHS. INSTRUCTIONS WERE GIVEN, QUESTIONS WERE ANSWERED, PATIENT REPORTS UNDERSTANDING AND AGREES WITH THE PLAN. I, CLAUDIA NINO, DOCUMENTED THE ABOVE INFORMATION ACTING A SCRIBE FOR DR. PAYNE. I HAVE REVIEWED THE ABOVE DOCUMENT, WRITTEN BY CLAUDIA GARDNER AND I VERIFY THAT IT IS ACCURATE. . OTHERS START GABAPENTIN CAPSULE, 100 MG, 1 CAPSULE, ORALLY, THREE TIMES DAILY, 30 DAY(S), 90, REFILLS 1 START HYDROCODONE-ACETAMINOPHEN TABLET, 5-325 MG, 1 TABLET NEEDED, ORALLY, DAILY, 30 DAYS, 30 TABLET, REFILLS 0 NOTES: HYDROCODONE MATERIAL WAS PRINTED,GABAPENTIN MATERIAL WAS PRINTED. PROCEDURE CODES [id number] ESTABILISHED PATIENT [facility] FACILITY CHARGE G9210 CURRENT MEDS W/DOSAGES DOCUMENTED G8730 PAIN ASSESS POS TOOL F/U PLAN DOC DISPOSITION & COMMUNICATION FOLLOW UP 2 MONTHS (REASON: LOW BACK) ELECTRONICALLY SIGNED BY GISELLE PAYNE MD, MD ON 08/24/2018 AT 08:09 PM EDT DISCLAIMER : THIS IS A VISIT SUMMARY EXTRACTED FROM THE [employer] CHART. IT IS NOT A COPY OF THE [employer] PROGRESS NOTE. GLORIA
== END ==
LOC: M PAIN 11:00
PROVIDERS: ATTEND Anesthesiology
DX: M51.16 Intervertebral disc disorders with radiculopathy, lumbar region (principal); M79.2 Neuralgia and neuritis, unspecified; E11.9 Type 2 diabetes mellitus without complications; E78.5 Hyperlipidemia, unspecified; E53.8 Deficiency of other specified B group vitamins; E03.9 Hypothyroidism, unspecified; I10 Essential (primary) hypertension; M79.7 Fibromyalgia; I25.10 Atherosclerotic heart disease of native coronary artery without angina pectoris; I25.2 Old myocardial infarction; K74.60 Unspecified cirrhosis of liver; I50.9 Heart failure, unspecified; M71.22 Synovial cyst of popliteal space [Baker], left knee; Z98.41 Cataract extraction status, right eye; Z98.42 Cataract extraction status, left eye; Z87.891 Personal history of nicotine dependence; Z79.82 Long term (current) use of aspirin; Z79.4 Long term (current) use of insulin; Z79.899 Other long term (current) drug therapy; Z88.8 Allergy status to other drugs, medicaments and biological substances

== ENCOUNTER → 2018-08-21 | Outpatient (REF) | payer OTHER ==
[2018-08-21 19:06] LABS: CREATININE, URINE < 13.0 MG/DL
== END ==
LOC: M LABDRAW1 17:17
PROVIDERS: ATTEND Nurse Practitioner Family
DX: E11.40 Type 2 diabetes mellitus with diabetic neuropathy, unspecified (principal)

== ENCOUNTER → 2018-10-09 | Outpatient (CLI) | payer OTHER ==
[2018-10-09 12:58] LABS: HEMATOCRIT 36.2 % (36.0-47.0); HEMOGLOBIN 11.9 g/dl (12.0-15.5); MEAN CORPUSCULAR HEMOGLOBIN 29.2 pg (27.0-33.0); MEAN CORPUSCULAR HGB CONC 32.9 g/dl (32.0-36.5); MEAN CORPUSCULAR VOLUME 88.9 fl (80.0-96.0); PLATELET COUNT, AUTOMATED 132 10^3/uL (150-450); RED BLOOD COUNT 4.07 10^6/uL (4.00-5.40); WHITE BLOOD COUNT 6.1 10^3/uL (4.0-10.0)
[2018-10-09 13:23] LABS: PERCENT SATURATION 15.1 % (13.2-45.0)
== END ==
LOC: M WUC 09:10
PROVIDERS: ATTEND Family Medicine
DX: D50.0 Iron deficiency anemia secondary to blood loss (chronic) (principal)

== ENCOUNTER → 2018-10-16 | Outpatient (CLI) | payer OTHER ==
[~2018-10-16] MED LIST changes: +DULO1CAP5; +HYDR-3713; +ISOS30TA4; +MECL1TAB31 PO; +PREG50CA2; -VALS160T PO; +VALS160T2 PO
--- NOTE | 2018-10-24 00:23 | ECWPNPC ---
PATIENT NAME: MARIANA SMITH : 1950 GENDER: FEMALE VISIT DATE: 10/16/2018 DISCHARGE DATE: 10/16/18 1600 VISIT LOCKED DATE TIME: PHYSICIAN: GISELLE PAYNE MD RESOURCE: GISELLE PAYNE MD REASON FOR APPOINTMENT 1. RT KNEE PAIN/LOW BACK HISTORY OF PRESENT ILLNESS HISTORY OF PRESENT ILLNESS: PAIN THE PATIENT DESCRIBES THE PAIN... 68 YEAR OLD FEMALE PATIENT WITH A HISTORY OF CHRONIC RIGHT KNEE PAIN. THE PATIENT DESCRIBES THE PAIN BURNING, TENDER, SHARP, STABBING, AND NIGHTLY WITH A PAIN SCORE OF 3-10/10 DEPENDING ON PHYSICAL ACTIVITY. THE PATIENT STATES SHE ALSO HAS A HISTORY OF CHRONIC LOW BACK PAIN, HOWEVER HER MAIN CONCERN AT THE MOMENT IS HER RIGHT KNEE PAIN. THE PATIENT SAYS OVER THE LAST TWO WEEKS, SHE EXPERIENCED SOME PAIN IN HER LEGS WELL. THE PATIENT SAYS SHE STARTED HYDROCODONE-ACETAMINOPHEN 5-325 MG NEEDED FOR HER PAIN, BUT SHE IS ALSO INTERESTED IN TRYING INJECTION THERAPY TO HELP WITH HER RIGHT KNEE PAIN. THE PATIENT STATES SHE HAS HAD BILATERAL KNEE INJECTIONS DONE AT [facility] IN THE PAST, THAT HAS PROVIDED HER WITH GOOD PAIN RELIEF IN BOTH KNEES, HOWEVER HER RIGHT KNEE IS HURTING AGAIN. PATIENT DENIES UNEXPLAINABLE WEIGHT LOSS, FEVER, CHILLS, NEW CHANGES ON HER URINARY OR BOWEL CONTROL. FALL RISK SCREENING: SCREENING :NO FALLS REPORTED IN THE LAST YEAR CURRENT MEDICATIONS TAKING ATORVASTATIN CALCIUM 20 MG TABLET 1 TABLET ORALLY ONCE A DAY TAKING LEVOTHYROXINE SODIUM 25 MCG TABLET 1 TABLET ON AN EMPTY STOMACH IN THE MORNING ORALLY ONCE A DAY TAKING ONDANSETRON HCL 4 MG TABLET 1 TABLETS ORALLY EVERY 6 HOURS, NOTES: NEEDED TAKING PANTOPRAZOLE SODIUM 40 MG TABLET DELAYED RELEASE 1 TABLET ORALLY ONCE A DAY TAKING FERROUS SULFATE 325 (65 FE) MG TABLET 1 TABLET ORALLY ONCE A DAY TAKING POTASSIUM CHLORIDE 10 MEQ CAPSULE EXTENDED RELEASE 1 CAPSULE WITH FOOD ORALLY TWICE A DAY TAKING CARVEDILOL 12.5 MG TABLET 1 TABLET ORALLY TWICE A DAY TAKING FUROSEMIDE 20 MG TABLET 1 TABLET ORALLY ONCE A DAY, NOTES: UNSURE ABOUT DOSE TAKING LOSARTAN POTASSIUM 100 MG TABLET 1 TABLET ORALLY ONCE A DAY TAKING LEVEMIR FLEXTOUCH 100 UNIT/ML SOLUTION PEN-INJECTOR 40 UNITS SUBCUTANEOUS BID TAKING METFORMIN HCL 500 MG TABLET 2 TABLETS WITH MEALS ORALLY TWICE A DAY TAKING FARXIGA 10 MG TABLET 1 TABLET ORALLY ONCE A DAY TAKING ASPIRIN LOW DOSE 81 MG TABLET DELAYED RELEASE TAKE ONE TABLET BY MOUTH EVERY DAY TAKING TIZANIDINE HCL 4 MG TABLET 1 TABLET ORALLY TWICE DAILY TAKING HYDROCODONE-ACETAMINOPHEN 5-325 MG TABLET 1 TABLET NEEDED ORALLY DAILY TAKING CEPHALEXIN 500 MG CAPSULE 1 CAPSULE ORALLY FOUR TIMES DAILY NOT-TAKING GABAPENTIN 100 MG CAPSULE 1 CAPSULE ORALLY THREE TIMES DAILY NEEDED NOT-TAKING NOVOLIN R 100 UNIT/ML SOLUTION 10 UNITS SUBCUTANEOUSLY 4 TIMES DAILY MEDICATION LIST REVIEWED AND RECONCILED WITH THE PATIENT PAST MEDICAL HISTORY T2DM NID HYPERLIPIDEMIA VITAMIN B12 DEFICIENCY - RECENT LEVELS HIGH VITAMIN D DEFICIENCY - DENIES HYPOTHYROIDISM HYPERTENSION RIGHT HUMERUS FX 05/2017 TENDONITIS/CARPAL TUNNEL TUNNEL/NEUROPATHY IN BOTH HANDS - DR. LOVE FIBROMYALGIA ABDOMINAL HERNIA CAD SP NSTEMI 07/08/17 WITH 1 ANNABEL TO [id number] ECHO 07/08/17 AT [facility]: EF 50%, GRADE 2 DIASTOLIC DYSFUNCTION, MILD LVH CIRRHOSIS/ARNOLD SEEN ON CT AND ABD U/S 06/2017 - REFERRED TO DR. OSHEA COLONOSCOPY AND ENDOSCOPY-07/2017 JEONG'S CYST LEFT LEG WITH THIGH PAIN CHF ALLERGIES TEQUIN: RASH - ALLERGY SURGICAL HISTORY TONSILLECTOMY A CHILD SALIVARY GLAND PUS GLAND REMOVAL 1950 1981 GALLBLADDER REMOVAL 1984 HYSTERECTOMY FOR ENDOMETRIAL POLYPS FISTULA REPAIR IN PERINEAL AREA 1992 EGD (NML), COLONOSCOPY (NB IH, NML) - [facility], R/P COLONOSCOPY IN 05/2012 DRUG-ELUTING STENT TO LAD AT [facility] 07/08/2017 EGD (GASTRIC EROSIONS, MILD GASTROPATHY) AND (DIVERTICULOSIS, OTHERWISE NML) - DR. VEE 07/2017 CATARACT SURGERY - BOTH EYES 2017 FAMILY HISTORY FATHER: , OF A BLEEDING ULCER; DOESN'T KNOW ANY OTHER HISTORY MOTHER: , DM2, KIDNEY FAILURE, ACROMEGALY SIBLINGS: ALIVE 71 YRS, BROTHER HAS MS, DM2, DIAGNOSED WITH HYPERTENSION 1 BROTHER(S) . 1DAUGHTER(S) - HEALTHY. DENIES KNOWN FAMILY HISTORY OF BREAST OR COLON CANCER.\NBROTHER - DM II, MS\NDAUGHTER - FRACTURES IN BACK. SOCIAL HISTORY GENERAL: TOBACCO USE ARE YOU A:FORMER SMOKER HOW LONG HAS IT BEEN SINCE YOU LAST SMOKED?> 10 YEARS ARE YOU A:FORMER SMOKER HOW LONG HAS IT BEEN SINCE YOU LAST SMOKED?> 10 YEARS HIV / HEP-C SCREENING HIV TEST OFFERED TO PATIENT:YES DATE OFFERED:06/26/2017 TEST ACCEPTED:NO HEP-C TEST OFFERED TO PATIENT:YES DATE OFFERED:06/26/2017 REASON:PATIENT DECLINED TEST ACCEPTED:NO REASON:PATIENT DECLINED BROCHURE PROVIDED TO JOSR HIV TEST OFFERED TO PATIENT:YES DATE OFFERED:06/26/2017 TEST ACCEPTED:NO HEP-C TEST OFFERED TO PATIENT:YES DATE OFFERED:06/26/2017 REASON:PATIENT DECLINED TEST ACCEPTED:NO REASON:PATIENT DECLINED BROCHURE PROVIDED TO NADEEMYEMiri OTHERS AT HOME: NONE. EDUCATION LEVEL OF EDUCATION:HIGH SCHOOL LEVEL OF EDUCATION:HIGH SCHOOL DIET: REGULAR. LANGUAGE LANGUAGES SPOKEN:YORUBA LANGUAGES SPOKEN:YORUBA DOMESTIC VIOLENCE DO YOU FEEL SAFE IN YOUR ENVIRONMENT?YES DO YOU FEEL SAFE IN YOUR ENVIRONMENT?YES RECREATIONAL DRUG USE DRUG USE?NO DRUG USE?NO EXERCISE: NO REGULAR EXERCISE. LEARNING BARRIERS / SPECIAL NEEDS CHANGE FROM LAST VISIT?NO BARRIERS TO LEARNING?NO HEARING IMPAIRED?NO VISION IMPAIRED?YES COGNITIVELY IMPAIRED?NO :CORRECTIVE LENSES READING GLASSES READINESS TO LEARN?YES LEARNING PREFERENCES?NO LEARNING CAPABILITIES PRESENT?YES EMOTIONAL BARRIERS?NO SPECIAL DEVICES?YES :CANE POWER CHAIR STAFF ANESTHETIST NEEDED?NO CHANGE FROM LAST VISIT?NO BARRIERS TO LEARNING?NO HEARING IMPAIRED?NO VISION IMPAIRED?YES COGNITIVELY IMPAIRED?NO :CORRECTIVE LENSES READING GLASSES READINESS TO LEARN?YES LEARNING PREFERENCES?NO LEARNING CAPABILITIES PRESENT?YES EMOTIONAL BARRIERS?NO SPECIAL DEVICES?YES :CANE POWER CHAIR STAFF ANESTHETIST NEEDED?NO PAIN CLINIC PFS, CLERGY, PUBLIC HEALTH REFERRALS HAS THE PATIENT BEEN EDUCATED REGARDING HIS/HER PLAN OF CARE?YES HAS THE PATIENT BEEN EDUCATED REGARDING PAIN, THE RISK FOR PAIN, THE IMPORTANCE OF EFFECTIVE PAIN MANAGEMENT, AND THE PAIN ASSESSMENT PROCESS?YES HAS THE PATIENT BEEN EDUCATED REGARDING HIS/HER PLAN OF CARE?YES HAS THE PATIENT BEEN EDUCATED REGARDING PAIN, THE RISK FOR PAIN, THE IMPORTANCE OF EFFECTIVE PAIN MANAGEMENT, AND THE PAIN ASSESSMENT PROCESS?YES LATEX QUESTIONNAIRE LATEX ALLERGY : HAVE YOU EVER DEVELOPED ANY TYPE OF REACTION AFTER HANDLING LATEX PRODUCTS SUCH RUBBER GLOVES, CONDOMS, DIAPHRAGMS, BALLOONS, SOCKS, OR UNDERWEAR?NO LATEX ALLERGY : HAVE YOU EVER DEVELOPED ANY TYPE OF REACTION DURING OR AFTER DENTAL APPOINTMENT, VAGINAL/RECTAL EXAMINATION, SURGICAL PROCEDURE, OR ANY OTHER EXPOSURE?NO DATE ASKED : 05/05/2018 LATEX RISK : HAVE YOU EVER HAD ANY DIFFICULTY BREATHING OR HIVES AFTER EATING OR HANDLING ANY FRUITS, OR VEGETABLES; SUCH KIWI, BANANAS, STONE FRUITS, OR CHESTNUTSNO LATEX RISK : DO YOU HAVE A PREVIOUS PERSONAL HISTORY OF MORE THAN NINE SURGERIES, SPINA BIFIDA, OR REPEATED CATHERIZATIONS? NO LATEX RISK : ARE YOU FREQUENTLY EXPOSED TO LATEX PRODUCTS IN YOUR OCCUPATION?NO LATEX ALLERGY : HAVE YOU EVER DEVELOPED ANY TYPE OF REACTION AFTER HANDLING LATEX PRODUCTS SUCH RUBBER GLOVES, CONDOMS, DIAPHRAGMS, BALLOONS, SOCKS, OR UNDERWEAR?NO LATEX ALLERGY : HAVE YOU EVER DEVELOPED ANY TYPE OF REACTION DURING OR AFTER DENTAL APPOINTMENT, VAGINAL/RECTAL EXAMINATION, SURGICAL PROCEDURE, OR ANY OTHER EXPOSURE?NO DATE ASKED : 05/05/2018 LATEX RISK : HAVE YOU EVER HAD ANY DIFFICULTY BREATHING OR HIVES AFTER EATING OR HANDLING ANY FRUITS, OR VEGETABLES; SUCH KIWI, BANANAS, STONE FRUITS, OR CHESTNUTSNO LATEX RISK : DO YOU HAVE A PREVIOUS PERSONAL HISTORY OF MORE THAN NINE SURGERIES, SPINA BIFIDA, OR REPEATED CATHERIZATIONS? NO LATEX RISK : ARE YOU FREQUENTLY EXPOSED TO LATEX PRODUCTS IN YOUR OCCUPATION?NO CAFFEINE CAFFEINE USE?YES HOW OFTEN AND HOW MUCH? 1 CUP OF COFFEE OCCASIONALLY 1 SODA OCCASIONALLY CAFFEINE USE?YES HOW OFTEN AND HOW MUCH? 1 CUP OF COFFEE OCCASIONALLY 1 SODA OCCASIONALLY ADVANCE DIRECTIVE ADVANCE DIRECTIVE DISCUSSED WITH PATIENT:YES HCP - DEEPAK MILLER (DAUGHTER) ADVANCE DIRECTIVE DISCUSSED WITH PATIENT:YES HCP - DEVONANAND PORTERJEFFERSON (DAUGHTER) PRESYBETERIAN [id number] CHRISTIANITY [id number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facility] 07/07/2017 GI BLEED C ACUTE BLOOD LOSS ANEMIA AND ASAF I (CR TO 1.5) C LA 3.7-ALEN HGB 8.5 SP 2U PRBCS TO 10 AT DC, EGD/COLON C MILD GASTRIC HTN C FEW FLECKS OF HEME IN GASTRIC BODY, SIG LOSIS, CTA AP NAD-DCED ON PRESENTING REGIMEN OF ASA 81 AND GINGER 90 BID, ADDED P 08/02-02/11 GI BLEED 09/17/17 ACUTE GASTROENTERITIS SECONDARY TO NOROVIRUS 02/2018 GI BLEED 04/23/2018 FALL WITH LOW BLOOD PRESSURE 07/04/2018 REVIEW OF SYSTEMS REVIEWED BY: PROVIDER: GISELLE PAYNE MD . CONSTITUTIONAL: ANY CHANGE IN YOUR MEDICAL CONDITION? NO . CHILLS NO . FEVER NO . INFECTION: DO YOU HAVE NEW INFECTIONS? YES - LEFT LOWER ABDOMEN - ON ANTIBIOTIC . DO YOU HAVE HISTORY OF MRSA? NO . MUSCULOSKELETAL: ANY NEW PATTERNS OF PAIN OR NUMBNESS? YES - STATES PAIN HAS MOVED FROM RIGHT KNEE TO RIGHT THIGH AND RIGHT LOW BACK FOR PAST 3 DAYS . GASTROENTEROLOGY: ANY NEW CHANGE IN BOWEL CONTROL? NO . GENITOURINARY: ANY NEW CHANGE IN BLADDER CONTROL? NO . IS THERE A CHANCE YOU COULD BE ? NO . HEMATOLOGY/LYMPH: DO YOU TAKE ANY BLOOD THINNERS? (FOR EXAMPLE- COUMADIN, PLAVIX, AGGRENOX, PLATEL, PRADAXA, OR XARELTO) NO . WHEN WAS YOUR LAST DOSE? DATE: TIME: . NEUROLOGY: HAVE YOU FALLEN IN THE PAST 12 MONTHS? NO . ANY NEW EXTREMITY NUMBNESS OR WEAKNESS? YES - WORSE FOR PAST 3 DAYS - STATES IS WALKING MORE . CARDIOLOGY: DO YOU HAVE A PACEMAKER OR DEFIBRILLATOR? NO . RESPIRATORY: HAVE YOU BEEN SICK IN THE PAST WEEK? NO . FEVER NO . FLU LIKE SYMPTOMS? NO . COUGH NO . INTEGUMENTARY: DO YOU HAVE ANY RASHES OR OPEN SORES? YES . ALLERGIC/IMMUNO: ARE YOU ALLERGIC TO IV DYE? NO . ANY NEW ALLERGIES? NO . PSYCHIATRIC: DO YOU HAVE THOUGHTS OF HURTING YOURSELF OR SOMEONE ELSE? NO . ARE YOU ABUSED, NEGLECTED, OR IN AN UNSAFE ENVIRONMENT? NO . ENDOCRINOLOGY: ARE YOU DIABETIC? YES . OTHER: DO YOU NEED ANY PRESCRIPTIONS? NO . IF YES, PLEASE LIST: ____ . ANY NEW PROBLEMS WITH YOUR MEDICATIONS? NO . WHEN DID YOU LAST EAT? ____ . WHEN DID YOU LAST DRINK? ____ . WHAT DID YOU LAST DRINK? ____ . NAME OF PERSON DRIVING YOU HOME? ____ . DO YOU HAVE ANY OTHER QUESTIONS OR CONCERNS YES - WHY IS PAIN GOING INTO THIGH, HIP, AND BACK AND COULD HAVE A PRESCRIPTION FOR LIDOCAINE GEL FOR RIGHT KNEE PAIN? . VITAL SIGNS WT 194.8 LBS, HT 63.5 IN, BMI 33.96 INDEX, BP 160/70 MANUAL BP, HR 62 /MIN, RR 18 /MIN, TEMP 96.8 F, OXYGEN SAT % 98%, NA INITIALS AW 1420, REVIEWED BY: CROW. EXAMINATION GENERAL EXAMINATION: PATIENT IS ALERT O X 3 AND COOPERATIVE. TENDERNESS IN THE RIGHT KNEE. PATIENT HAS DIFFICULTY STANDING UP. ANTALGIC WALK. PATIENT IS LIMPING FROM THE RIGHT LEG. MRI OF THE LUMBAR SPINE DONE ON 07/06/2018 SHOWS FACET ARTHROPATHY CHANGES AND SPINAL STENOSIS. ASSESSMENTS PAIN IN RIGHT KNEE - M25.561 (PRIMARY) OTHER CHRONIC PAIN - G89.29 LOW BACK PAIN - M54.5 TREATMENT PAIN IN RIGHT KNEE CLINICAL NOTES: WE DISCUSSED SEVERAL ISSUES WITH MS. SMITH'S PAIN MANAGEMENT CASE. I AM REFERRING THE PATIENT TO [facility] TO CONSIDER RECEIVING ANOTHER KNEE INJECTION FROM THEIR FACILITY. THE PATIENT HAD BILATERAL KNEE INJECTIONS DONE AT [facility] IN THE PAST THAT HAS PROVIDED HER WITH OVER A YEAR OF PAIN RELIEF. THE PATIENT WAS REMINDED TO BRING HER MEDICATIONS TO EACH VISIT. URINE TOXICOLOGY DONE ON 08/15/2018 SHOWS CONCURRENT RESULTS. ISTOP __# [id number] WAS REVIEWED. I REFILLED THE PATIENT'S HYDROCODONE-ACETAMINOPHEN 5-325 MG THAT HELPS WITH HER PAIN AND MOBILITY. I WILL START THE PATIENT ON LIDOCAINE GEL TO HELP WITH HER RIGHT KNEE PAIN WELL. DEPENDING ON HOW THE KNEE INJECTION GOES, I MAY CONSIDER DOING INJECTIONS, SUCH COOL RF, FOR THE PATIENT IN THE FUTURE. FOR THE PATIENT'S LOW BACK PAIN, I DON'T SEE ANY INDICATIONS FOR INJECTIONS AT THE MOMENT. THE PATIENT WILL FOLLOW UP WITH THE NURSE PRACTITIONER IN 1-2 MONTHS. INSTRUCTIONS WERE GIVEN, QUESTIONS WERE ANSWERED, PATIENT REPORTS UNDERSTANDING AND AGREES WITH THE PLAN. I, KATIE CHANG, DOCUMENTED THE ABOVE INFORMATION ACTING A SCRIBE FOR DR. PAYNE. I HAVE REVIEWED THE ABOVE DOCUMENT, WRITTEN BY KATIE PATELIBElidia AND I VERIFY THAT IT IS ACCURATE. . OTHER CHRONIC PAIN REFILL HYDROCODONE-ACETAMINOPHEN TABLET, 5-325 MG, 1 TABLET NEEDED, ORALLY, DAILY FOR PAIN, 30 DAYS, 30, REFILLS 0 START LIDOCAINE GEL, 0.5 %, DIRECTED, EXTERNALLY NEEDED FOR RIGHT KNEE PAIN, THREE TIMES DAILY, 30 DAYS, 1, REFILLS 1 PROCEDURE CODES FA211 ESTABILISHED PATIENT [facility] FACILITY CHARGE G8427 CURRENT MEDS W/DOSAGES DOCUMENTED G8730 PAIN ASSESS POS TOOL F/U PLAN DOC DISPOSITION & COMMUNICATION FOLLOW UP 1-2 MONTHS (REASON: F/U WITH INFORMATION DELIVERY ANALYST FOR MEDS) ELECTRONICALLY SIGNED BY GISELLE PAYNE MD, MD ON 10/23/2018 AT 12:19 PM EDT DISCLAIMER : THIS IS A VISIT SUMMARY EXTRACTED FROM THE [employer] CHART. IT IS NOT A COPY OF THE [employer] PROGRESS NOTE. MTDD
== END ==
LOC: M PAIN 14:30
PROVIDERS: ATTEND Anesthesiology
DX: M25.561 Pain in right knee (principal); G89.29 Other chronic pain; M54.5 Low back pain; E11.9 Type 2 diabetes mellitus without complications; E78.5 Hyperlipidemia, unspecified; E03.9 Hypothyroidism, unspecified; I10 Essential (primary) hypertension; M79.7 Fibromyalgia; Z87.891 Personal history of nicotine dependence; Z88.1 Allergy status to other antibiotic agents; Z79.4 Long term (current) use of insulin; Z79.82 Long term (current) use of aspirin; Z79.899 Other long term (current) drug therapy

== ENCOUNTER → 2018-11-25 | Outpatient (CLI) | payer OTHER ==
[~2018-11-25] MED LIST changes: -DULO1CAP5; -HYDR-3713; -ISOS30TA4; -MECL1TAB31 PO; -PREG50CA2; +VALS160T PO; -VALS160T2 PO
--- NOTE | 2018-11-26 23:45 | ECWPNPC ---
PATIENT NAME: MARIANA SMITH : 1950 GENDER: FEMALE VISIT DATE: 11/25/2018 DISCHARGE DATE: 11/25/18 1511 VISIT LOCKED DATE TIME: PHYSICIAN: COREY NAVARRO RESOURCE: COREY NAVARRO REASON FOR APPOINTMENT 1. LEG PAIN/ MED FOLLOW UP HISTORY OF PRESENT ILLNESS HISTORY OF PRESENT ILLNESS: PAIN THE PATIENT DESCRIBES THE PAIN... 68-YEAR-OLD FEMALE IN FOR CHRONIC PAIN FOLLOW-UP. AT LAST CLINIC VISIT DR. PAYNE HAD REFERRED PATIENT TO ORTHOPEDICS FOR AN INJECTION IN HER KNEE. SHE STATES SHE RECEIVED INJECTION RECENTLY AND IT WAS INEFFECTIVE. SHE RATES HER PAIN CURRENTLY AT A 10+ AND DESCRIBES IT SHARP BURNING STABBING SHOOTING AND TENDER. FALL RISK SCREENING: SCREENING :NO FALLS REPORTED IN THE LAST YEAR CURRENT MEDICATIONS TAKING HYDROCODONE-ACETAMINOPHEN 5-325 MG TABLET 1 TABLET NEEDED ORALLY DAILY FOR PAIN TAKING LIDOCAINE 0.5 % GEL DIRECTED EXTERNALLY NEEDED FOR RIGHT KNEE PAIN THREE TIMES DAILY TAKING ONDANSETRON HCL 4 MG TABLET 1 TABLETS ORALLY EVERY 6 HOURS, NOTES: NEEDED TAKING CARVEDILOL 6.25 MG TABLET 1 TABLET ORALLY TWICE A DAY TAKING METFORMIN HCL 500 MG TABLET 2 TABLETS WITH MEALS ORALLY TWICE A DAY TAKING ASPIRIN LOW DOSE 81 MG TABLET DELAYED RELEASE TAKE ONE TABLET BY MOUTH EVERY DAY TAKING LEVOTHYROXINE SODIUM 25 MCG TABLET 1 TABLET ON AN EMPTY STOMACH IN THE MORNING ORALLY ONCE A DAY TAKING FARXIGA 5 MG TABLET 1 TABLET ORALLY ONCE A DAY TAKING ATORVASTATIN CALCIUM 20 MG TABLET 1 TABLET ORALLY ONCE A DAY TAKING FUROSEMIDE 20 MG TABLET 1 TABLET ORALLY ONCE A DAY TAKING FERROUS SULFATE 325 (65 FE) MG TABLET 1 TABLET ORALLY ONCE A DAY TAKING LEVEMIR FLEXTOUCH 100 UNIT/ML SOLUTION PEN-INJECTOR 40 UNITS SUBCUTANEOUS BID TAKING LOSARTAN POTASSIUM 100 MG TABLET 1 TABLET ORALLY ONCE A DAY TAKING TIZANIDINE HCL 4 MG TABLET 1 TABLET ORALLY TWICE DAILY TAKING PANTOPRAZOLE SODIUM 40 MG TABLET DELAYED RELEASE 1 TABLET ORALLY ONCE A DAY TAKING SUCRALFATE 1 GM TABLET 1 TABLET ON AN EMPTY STOMACH ORALLY THREE TIMES DAILY TAKING NOVOLIN R 100 UNIT/ML SOLUTION 10 UNITS SUBCUTANEOUSLY 4 TIMES DAILY NOT-TAKING POTASSIUM CHLORIDE 10 MEQ CAPSULE EXTENDED RELEASE 1 CAPSULE WITH FOOD ORALLY TWICE A DAY NOT-TAKING CEPHALEXIN 500 MG CAPSULE 1 CAPSULE ORALLY FOUR TIMES DAILY NOT-TAKING GABAPENTIN 100 MG CAPSULE 1 CAPSULE ORALLY THREE TIMES DAILY NEEDED MEDICATION LIST REVIEWED AND RECONCILED WITH THE PATIENT PAST MEDICAL HISTORY T2DM NID HYPERLIPIDEMIA VITAMIN B12 DEFICIENCY - RECENT LEVELS HIGH VITAMIN D DEFICIENCY - DENIES HYPOTHYROIDISM HYPERTENSION RIGHT HUMERUS FX 05/2017 TENDONITIS/CARPAL TUNNEL TUNNEL/NEUROPATHY IN BOTH HANDS - DR. LOVE FIBROMYALGIA ABDOMINAL HERNIA CAD SP NSTEMI 07/08/17 WITH 1 ANNABEL TO [id number] ECHO 07/08/17 AT [facility]: EF 50%, GRADE 2 DIASTOLIC DYSFUNCTION, MILD LVH CIRRHOSIS/ARNOLD SEEN ON CT AND ABD U/S 06/2017 - REFERRED TO DR. OSHEA COLONOSCOPY AND ENDOSCOPY-07/2017 JEONG'S CYST LEFT LEG WITH THIGH PAIN CHF ALLERGIES TEQUIN: RASH - ALLERGY SURGICAL HISTORY TONSILLECTOMY A CHILD SALIVARY GLAND PUS GLAND REMOVAL 1952 1981 GALLBLADDER REMOVAL 1984 HYSTERECTOMY FOR ENDOMETRIAL POLYPS FISTULA REPAIR IN PERINEAL AREA 1992 EGD (NML), COLONOSCOPY (NB IH, NML) - [facility], R/P COLONOSCOPY IN 05/2012 DRUG-ELUTING STENT TO LAD AT [facility] 07/08/2017 EGD (GASTRIC EROSIONS, MILD GASTROPATHY) AND (DIVERTICULOSIS, OTHERWISE NML) - DR. VEE 07/2017 CATARACT SURGERY - BOTH EYES 2017 FAMILY HISTORY FATHER: , OF A BLEEDING ULCER; DOESN'T KNOW ANY OTHER HISTORY MOTHER: , DM2, KIDNEY FAILURE, ACROMEGALY SIBLINGS: ALIVE 71 YRS, BROTHER HAS MS, DM2, DIAGNOSED WITH HYPERTENSION 1 BROTHER(S) . 1DAUGHTER(S) - HEALTHY. DENIES KNOWN FAMILY HISTORY OF BREAST OR COLON CANCER.\NBROTHER - DM II, MS\NDAUGHTER - FRACTURES IN BACK. SOCIAL HISTORY GENERAL: TOBACCO USE ARE YOU A:FORMER SMOKER HOW LONG HAS IT BEEN SINCE YOU LAST SMOKED?> 10 YEARS HIV / HEP-C SCREENING HIV TEST OFFERED TO PATIENT:YES DATE OFFERED:06/26/2017 TEST ACCEPTED:NO HEP-C TEST OFFERED TO PATIENT:YES DATE OFFERED:06/26/2017 REASON:PATIENT DECLINED TEST ACCEPTED:NO REASON:PATIENT DECLINED BROCHURE PROVIDED TO PATIENTYES OTHERS AT HOME: NONE. EDUCATION LEVEL OF EDUCATION:HIGH SCHOOL DIET: REGULAR. LANGUAGE LANGUAGES SPOKEN:CHINESE DOMESTIC VIOLENCE DO YOU FEEL SAFE IN YOUR ENVIRONMENT?YES RECREATIONAL DRUG USE DRUG USE?NO EXERCISE: NO REGULAR EXERCISE. 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?NO PAIN CLINIC PFS, CLERGY, PUBLIC HEALTH REFERRALS HAS THE PATIENT BEEN EDUCATED REGARDING HIS/HER PLAN OF CARE?YES HAS THE PATIENT BEEN EDUCATED REGARDING PAIN, THE RISK FOR PAIN, THE IMPORTANCE OF EFFECTIVE PAIN MANAGEMENT, AND THE PAIN ASSESSMENT PROCESS?YES LATEX QUESTIONNAIRE LATEX ALLERGY : HAVE YOU EVER DEVELOPED ANY TYPE OF REACTION AFTER HANDLING LATEX PRODUCTS SUCH RUBBER GLOVES, CONDOMS, DIAPHRAGMS, BALLOONS, SOCKS, OR UNDERWEAR?NO LATEX ALLERGY : HAVE YOU EVER DEVELOPED ANY TYPE OF REACTION DURING OR AFTER DENTAL APPOINTMENT, VAGINAL/RECTAL EXAMINATION, SURGICAL PROCEDURE, OR ANY OTHER EXPOSURE?NO DATE ASKED : 05/05/2018 LATEX RISK : HAVE YOU EVER HAD ANY DIFFICULTY BREATHING OR HIVES AFTER EATING OR HANDLING ANY FRUITS, OR VEGETABLES; SUCH KIWI, BANANAS, STONE FRUITS, OR CHESTNUTSNO LATEX RISK : DO YOU HAVE A PREVIOUS PERSONAL HISTORY OF MORE THAN NINE SURGERIES, SPINA BIFIDA, OR REPEATED CATHERIZATIONS? NO LATEX RISK : ARE YOU FREQUENTLY EXPOSED TO LATEX PRODUCTS IN YOUR OCCUPATION?NO CAFFEINE CAFFEINE USE?YES HOW OFTEN AND HOW MUCH? 1 CUP OF COFFEE OCCASIONALLY 1 SODA OCCASIONALLY ADVANCE DIRECTIVE ADVANCE DIRECTIVE DISCUSSED WITH PATIENT:YES HCP - DEEPAK MILLER (DAUGHTER) RESTORATIONISM [id number] PENTECOSTALISM MARITAL STATUS: . ALCOHOL SCREENING DID YOU HAVE A DRINK CONTAINING ALCOHOL IN THE PAST YEAR?YES HOW OFTEN DID YOU HAVE SIX OR MORE DRINKS ON ONE OCCASION IN THE PAST YEAR?NEVER (0 POINTS) HOW MANY DRINKS DID YOU HAVE ON A TYPICAL DAY WHEN YOU WERE DRINKING IN THE PAST YEAR?1 OR 2 (0 POINTS) HOW OFTEN DID YOU HAVE A DRINK CONTAINING ALCOHOL IN THE PAST YEAR?MONTHLY OR LESS (1 POINT) POINTS1 INTERPRETATIONNEGATIVE OCCUPATION: DISABLED. SEXUAL HX HAD SEX IN THE LAST 12 MONTHS (VAGINAL, ORAL, OR ANAL)?NO HAVE YOU EVER HAD AN STD?NO REVIEWED WITH PATIENT 05/30/18 [id number] JSREVIEWED WITH PT 08/15/18 1145 LASREVIEWED WITH PATIENT 11/25/2018 LAS. HOSPITALIZATION/MAJOR DIAGNOSTIC PROCEDURE SURGERIES ABOVE [facility] 07/07/2017 GI BLEED C ACUTE BLOOD LOSS ANEMIA AND ASAF I (CR TO 1.5) C LA 3.7-ALEN HGB 8.5 SP 2U PRBCS TO 10 AT DC, EGD/COLON C MILD GASTRIC HTN C FEW FLECKS OF HEME IN GASTRIC BODY, SIG LOSIS, CTA AP NAD-DCED ON PRESENTING REGIMEN OF ASA 81 AND GINGER 90 BID, ADDED P 08/02-02/11 GI BLEED 09/17/17 ACUTE GASTROENTERITIS SECONDARY TO NOROVIRUS 02/2018 GI BLEED 04/23/2018 FALL WITH LOW BLOOD PRESSURE 07/04/2018 REVIEW OF SYSTEMS REVIEWED BY: PROVIDER: MARSHA NAVARRO [employer] HAND FINISHER-C . CONSTITUTIONAL: ANY CHANGE IN YOUR MEDICAL CONDITION? NO . CHILLS NO . FEVER NO . INFECTION: DO YOU HAVE NEW INFECTIONS? NO . DO YOU HAVE HISTORY OF MRSA? NO . MUSCULOSKELETAL: ANY NEW PATTERNS OF PAIN OR NUMBNESS? YES PT REPORTS HER PAIN NOW EXTENDS TO ENTIRE RIGHT LEG AND HIP AND HER LEFT HIP . GASTROENTEROLOGY: ANY NEW CHANGE IN BOWEL CONTROL? NO . GENITOURINARY: ANY NEW CHANGE IN BLADDER CONTROL? YES PT REPORTS SHE HAS INCREASED URGENCY . IS THERE A CHANCE YOU COULD BE ? NO . HEMATOLOGY/LYMPH: DO YOU TAKE ANY BLOOD THINNERS? (FOR EXAMPLE- COUMADIN, PLAVIX, AGGRENOX, PLATEL, PRADAXA, OR XARELTO) NO . WHEN WAS YOUR LAST DOSE? DATE: TIME: . NEUROLOGY: HAVE YOU FALLEN IN THE PAST 12 MONTHS? NO . ANY NEW EXTREMITY NUMBNESS OR WEAKNESS? YES PT REPORTS SOME WEAKNESS IN HER RIGHT LEG. . CARDIOLOGY: DO YOU HAVE A PACEMAKER OR DEFIBRILLATOR? NO . RESPIRATORY: HAVE YOU BEEN SICK IN THE PAST WEEK? NO . FEVER NO . FLU LIKE SYMPTOMS? NO . COUGH NO . INTEGUMENTARY: DO YOU HAVE ANY RASHES OR OPEN SORES? NO . ALLERGIC/IMMUNO: ARE YOU ALLERGIC TO IV DYE? NO . ANY NEW ALLERGIES? NO . PSYCHIATRIC: DO YOU HAVE THOUGHTS OF HURTING YOURSELF OR SOMEONE ELSE? NO . ARE YOU ABUSED, NEGLECTED, OR IN AN UNSAFE ENVIRONMENT? NO . ENDOCRINOLOGY: ARE YOU DIABETIC? YES . OTHER: DO YOU NEED ANY PRESCRIPTIONS? YES . IF YES, PLEASE LIST: ____HYDROCODONE 5-325 . ANY NEW PROBLEMS WITH YOUR MEDICATIONS? NO . WHEN DID YOU LAST EAT? ____ . WHEN DID YOU LAST DRINK? ____ . WHAT DID YOU LAST DRINK? ____ . NAME OF PERSON DRIVING YOU HOME? ____ . DO YOU HAVE ANY OTHER QUESTIONS OR CONCERNS WOULD LIKE TO DISCUSS NEW PAIN IN RIGHT LEG AND BILATERAL HIPS. . VITAL SIGNS WT 196.6 LBS, HT 63.5 IN, BMI 34.28 INDEX, BP 178/87 MM HG, HR 55 /MIN, RR 18 /MIN, TEMP 96.6 F, OXYGEN SAT % 98%, SAFE IN ENV? (Y/N) YES, NA INITIALS SC 14:16, REVIEWED BY: JOSE ARMANDO. EXAMINATION GENERAL EXAMINATION: GENERALNO ACUTE DISTRESS, WELL NOURISHED AND HYDRATED. PSYCHAPPROPRIATE MOOD AND AFFECT . LUNGS:CLEAR TO AUSCULTATION BILATERALLY, NO WHEEZES, RHONCHI, RALES. HEART:NO MURMURS, REGULAR RATE AND RHYTHM. MUSCULOSKELETAL:LIGHT-TOUCH SENSITIVE RIGHT LOWER EXTREMITY . 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 GIVEN PRESENTING SYMPTOMS AND RESULTS OF PHYSICAL EXAMINATION RECOMMENDED LYRICA 75MG BID WITH FOLLOW-UP IN 1 MONTH TO DETERMINE EFFICACY OF TREATMENT. PATIENT HAS EXPRESSED UNDERSTANDING OF AND WAS IN AGREEMENT WITH TREATMENT PLAN. GIVEN TIME TO ASK QUESTIONS AND EXPRESSED CONCERNS. , ISTOP REGISTRY REVIEWED AND DEMONSTRATES COMPLLIANCE. (REF # [id number] ) BRINGS IN MEDICATIONS WHICH IS APPROPRIATE FOR WHAT WAS DISPENSED. RECENT URINE TOXICOLOGY REVIEWED. NO UNAUTHORIZED MEDICATIONS. NO ILLICIT SUBSTANCES AND PRESCRIBED MEDICATIONS WERE PRESENT. CYMBALTA SENT BUT CANCELLED WITH PHARMACY GIVEN PATIENT HEPATIC IMPAIRMENT. WILL START LYRICA. PATIENT HAS BEEN ON GABAPENTIN AND REPORTS SHE WAS UNABLE TO TOLERATE THE FATIGUE ASSOCIATED WITH USE OF THAT MEDICATION. . PREVENTIVE MEDICINE PAIN CLINIC TEACHING: MEDICATIONS INFORMATIONAL HANDOUT FOR DULOXETINE PRINTED AND REVIEWED WITH PATIENT. PROCEDURE CODES FA211 ESTABILISHED PATIENT [facility] CHARGE DISPOSITION & COMMUNICATION FOLLOW UP 4 WEEKS (REASON: MEDICATION CHANGE ) ELECTRONICALLY SIGNED BY YENY BURCIAGA ON 11/26/2018 AT 03:48 PM EDT DISCLAIMER : THIS IS A VISIT SUMMARY EXTRACTED FROM THE [employer] CHART. IT IS NOT A COPY OF THE [employer] PROGRESS NOTE. GLORIA
== END ==
LOC: M PAIN 14:00
PROVIDERS: ATTEND Family Medicine
DX: M79.2 Neuralgia and neuritis, unspecified (principal); M79.7 Fibromyalgia; E11.9 Type 2 diabetes mellitus without complications; E78.5 Hyperlipidemia, unspecified; E03.9 Hypothyroidism, unspecified; I10 Essential (primary) hypertension; Z87.891 Personal history of nicotine dependence; Z88.1 Allergy status to other antibiotic agents; Z79.82 Long term (current) use of aspirin; Z79.4 Long term (current) use of insulin; Z79.899 Other long term (current) drug therapy

== ENCOUNTER → 2018-12-25 | Outpatient (CLI) | payer OTHER ==
--- NOTE | 2019-01-07 04:05 | ECWPNPC ---
PATIENT NAME: MARIANA SMITH : 1950 GENDER: FEMALE VISIT DATE: 12/25/2018 DISCHARGE DATE: 12/25/18 1200 VISIT LOCKED DATE TIME: PHYSICIAN: COREY NAVARRO RESOURCE: COREY NAVARRO REASON FOR APPOINTMENT 1. MEDICATION CHANGE HISTORY OF PRESENT ILLNESS HISTORY OF PRESENT ILLNESS: PAIN THE PATIENT DESCRIBES THE PAIN... 68-YEAR-OLD FEMALE IN FOR CHRONIC PAIN FOLLOW-UP. SHE RATES HER PAIN CURRENTLY AT AN 8 OUT OF 10 AND DESCRIBES IT ACHING, BURNING, SORE, TENDER, SHARP, STABBING, AND SHOOTING. SHE FURTHER STATES THE PAIN LASTS ALL DAY. FALL RISK SCREENING: SCREENING :NO FALLS REPORTED IN THE LAST YEAR CURRENT MEDICATIONS TAKING LIDOCAINE 0.5 % GEL DIRECTED EXTERNALLY NEEDED FOR RIGHT KNEE PAIN THREE TIMES DAILY TAKING CARVEDILOL 6.25 MG TABLET 1 TABLET ORALLY TWICE A DAY TAKING METFORMIN HCL 500 MG TABLET 2 TABLETS WITH MEALS ORALLY TWICE A DAY TAKING ASPIRIN LOW DOSE 81 MG TABLET DELAYED RELEASE TAKE ONE TABLET BY MOUTH EVERY DAY TAKING LEVOTHYROXINE SODIUM 25 MCG TABLET 1 TABLET ON AN EMPTY STOMACH IN THE MORNING ORALLY ONCE A DAY TAKING ATORVASTATIN CALCIUM 20 MG TABLET 1 TABLET ORALLY ONCE A DAY TAKING FUROSEMIDE 20 MG TABLET 1 TABLET ORALLY ONCE A DAY TAKING FERROUS SULFATE 325 (65 FE) MG TABLET 1 TABLET ORALLY ONCE A DAY TAKING LEVEMIR FLEXTOUCH 100 UNIT/ML SOLUTION PEN-INJECTOR 40 UNITS SUBCUTANEOUS BID TAKING LOSARTAN POTASSIUM 100 MG TABLET 1 TABLET ORALLY ONCE A DAY TAKING TIZANIDINE HCL 4 MG TABLET 1 TABLET ORALLY TWICE DAILY TAKING PANTOPRAZOLE SODIUM 40 MG TABLET DELAYED RELEASE 1 TABLET ORALLY ONCE A DAY TAKING SUCRALFATE 1 GM TABLET 1 TABLET ON AN EMPTY STOMACH ORALLY THREE TIMES DAILY TAKING CYMBALTA 30 MG CAPSULE DELAYED RELEASE PARTICLES 1 CAPSULE ORALLY ONCE A DAY TAKING LYRICA 75 MG CAPSULE 1 CAPSULE ORALLY TWICE DAILY TAKING HYDROCODONE-ACETAMINOPHEN 5-325 MG TABLET 1 TABLET NEEDED ORALLY DAILY FOR PAIN TAKING FARXIGA 5 MG TABLET 1 TABLET ORALLY ONCE A DAY TAKING NOVOLOG 100 UNIT/ML SOLUTION 10 UNITS SUBCUTANEOUS WITH MEALS NOT-TAKING ONDANSETRON HCL 4 MG TABLET 1 TABLETS ORALLY EVERY 6 HOURS, NOTES: NEEDED NOT-TAKING NOVOLIN R 100 UNIT/ML SOLUTION 10 UNITS SUBCUTANEOUSLY WITH MEALS NOT-TAKING GABAPENTIN 100 MG CAPSULE 1 CAPSULE ORALLY THREE TIMES DAILY NEEDED NOT-TAKING POTASSIUM CHLORIDE 10 MEQ CAPSULE EXTENDED RELEASE 1 CAPSULE WITH FOOD ORALLY TWICE A DAY NOT-TAKING CEPHALEXIN 500 MG CAPSULE 1 CAPSULE ORALLY FOUR TIMES DAILY MEDICATION LIST REVIEWED AND RECONCILED WITH THE PATIENT PAST MEDICAL HISTORY T2DM NID HYPERLIPIDEMIA VITAMIN B12 DEFICIENCY - RECENT LEVELS HIGH VITAMIN D DEFICIENCY - DENIES HYPOTHYROIDISM HYPERTENSION RIGHT HUMERUS FX 05/2017 TENDONITIS/CARPAL TUNNEL TUNNEL/NEUROPATHY IN BOTH HANDS - DR. LOVE FIBROMYALGIA ABDOMINAL HERNIA CAD SP NSTEMI 07/08/17 WITH 1 ANNABEL TO [id number] ECHO 07/08/[address] [facility]: EF 50%, GRADE 2 DIASTOLIC DYSFUNCTION, MILD LVH CIRRHOSIS/ARNOLD SEEN ON CT AND ABD U/S 06/2017 - REFERRED TO DR. OSHEA COLONOSCOPY AND ENDOSCOPY-07/2017 JEONG'S CYST LEFT LEG WITH THIGH PAIN CHF CHRONIC PAIN ALLERGIES TEQUIN: RASH - ALLERGY SURGICAL HISTORY TONSILLECTOMY A CHILD SALIVARY GLAND PUS GLAND REMOVAL 1952 1981 GALLBLADDER REMOVAL 1984 HYSTERECTOMY FOR ENDOMETRIAL POLYPS FISTULA REPAIR IN PERINEAL AREA 1992 EGD (NML), COLONOSCOPY (NB IH, NML) - [facility], R/P COLONOSCOPY IN 05/2012 DRUG-ELUTING STENT TO LAD AT [facility] 07/08/2017 EGD (GASTRIC EROSIONS, MILD GASTROPATHY) AND (DIVERTICULOSIS, OTHERWISE NML) - DR. VEE 07/2017 CATARACT SURGERY - BOTH EYES 2016 FAMILY HISTORY FATHER: , OF A BLEEDING ULCER; DOESN'T KNOW ANY OTHER HISTORY MOTHER: , DM2, KIDNEY FAILURE, ACROMEGALY SIBLINGS: ALIVE 71 YRS, BROTHER HAS MS, DM2, DIAGNOSED WITH HYPERTENSION 1 BROTHER(S) . 1DAUGHTER(S) - HEALTHY. DENIES KNOWN FAMILY HISTORY OF BREAST OR COLON CANCER.\NBROTHER - DM II, MS\NDAUGHTER - FRACTURES IN BACK. SOCIAL HISTORY GENERAL: TOBACCO USE ARE YOU A:FORMER SMOKER HOW LONG HAS IT BEEN SINCE YOU LAST SMOKED?> 10 YEARS HIV / HEP-C SCREENING HIV TEST OFFERED TO PATIENT:YES DATE OFFERED:06/26/2017 TEST ACCEPTED:NO HEP-C TEST OFFERED TO PATIENT:YES DATE OFFERED:06/26/2017 REASON:PATIENT DECLINED TEST ACCEPTED:NO REASON:PATIENT DECLINED BROCHURE PROVIDED TO PATIENTYES OTHERS AT HOME: NONE. EDUCATION LEVEL OF EDUCATION:HIGH SCHOOL DIET: REGULAR. LANGUAGE LANGUAGES SPOKEN:ESTONIAN DOMESTIC VIOLENCE DO YOU FEEL SAFE IN YOUR ENVIRONMENT?YES RECREATIONAL DRUG USE DRUG USE?NO EXERCISE: NO REGULAR EXERCISE. 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?NO PAIN CLINIC PFS, CLERGY, PUBLIC HEALTH REFERRALS HAS THE PATIENT BEEN EDUCATED REGARDING HIS/HER PLAN OF CARE?YES HAS THE PATIENT BEEN EDUCATED REGARDING PAIN, THE RISK FOR PAIN, THE IMPORTANCE OF EFFECTIVE PAIN MANAGEMENT, AND THE PAIN ASSESSMENT PROCESS?YES LATEX QUESTIONNAIRE LATEX ALLERGY : HAVE YOU EVER DEVELOPED ANY TYPE OF REACTION AFTER HANDLING LATEX PRODUCTS SUCH RUBBER GLOVES, CONDOMS, DIAPHRAGMS, BALLOONS, SOCKS, OR UNDERWEAR?NO LATEX ALLERGY : HAVE YOU EVER DEVELOPED ANY TYPE OF REACTION DURING OR AFTER DENTAL APPOINTMENT, VAGINAL/RECTAL EXAMINATION, SURGICAL PROCEDURE, OR ANY OTHER EXPOSURE?NO LATEX RISK : HAVE YOU EVER HAD ANY DIFFICULTY BREATHING OR HIVES AFTER EATING OR HANDLING ANY FRUITS, OR VEGETABLES; SUCH KIWI, BANANAS, STONE FRUITS, OR CHESTNUTSNO LATEX RISK : DO YOU HAVE A PREVIOUS PERSONAL HISTORY OF MORE THAN NINE SURGERIES, SPINA BIFIDA, OR REPEATED CATHERIZATIONS? NO LATEX RISK : ARE YOU FREQUENTLY EXPOSED TO LATEX PRODUCTS IN YOUR OCCUPATION?NO DATE ASKED : 12/25/2018 CAFFEINE CAFFEINE USE?YES HOW OFTEN AND HOW MUCH? 1 CUP OF COFFEE OCCASIONALLY 1 SODA OCCASIONALLY ADVANCE DIRECTIVE ADVANCE DIRECTIVE DISCUSSED WITH PATIENT:YES HCP - DEEPAK MILLER (DAUGHTER) ORTHODOX [id number] MORMON MARITAL STATUS: . ALCOHOL SCREENING DID YOU HAVE A DRINK CONTAINING ALCOHOL IN THE PAST YEAR?YES HOW OFTEN DID YOU HAVE SIX OR MORE DRINKS ON ONE OCCASION IN THE PAST YEAR?NEVER (0 POINTS) HOW MANY DRINKS DID YOU HAVE ON A TYPICAL DAY WHEN YOU WERE DRINKING IN THE PAST YEAR?1 OR 2 (0 POINTS) HOW OFTEN DID YOU HAVE A DRINK CONTAINING ALCOHOL IN THE PAST YEAR?MONTHLY OR LESS (1 POINT) POINTS1 INTERPRETATIONNEGATIVE OCCUPATION: DISABLED. SEXUAL HX HAD SEX IN THE LAST 12 MONTHS (VAGINAL, ORAL, OR ANAL)?NO HAVE YOU EVER HAD AN STD?NO REVIEWED WITH PATIENT 05/30/18 0952 JSREVIEWED WITH PT 08/15/18 1145 LASREVIEWED WITH PATIENT 11/25/2018 LAS 12/25/18 1110 REVIEWED WITH PT. AD. HOSPITALIZATION/MAJOR DIAGNOSTIC PROCEDURE SURGERIES ABOVE [facility] 07/07/2017 GI BLEED C ACUTE BLOOD LOSS ANEMIA AND ASAF I (CR TO 1.5) C LA 3.7-ALEN HGB 8.5 SP 2U PRBCS TO 10 AT DC, EGD/COLON C MILD GASTRIC HTN C FEW FLECKS OF HEME IN GASTRIC BODY, SIG LOSIS, CTA AP NAD-DCED ON PRESENTING REGIMEN OF ASA 81 AND GINGER 90 BID, ADDED P 08/02-02/11 GI BLEED 09/17/17 ACUTE GASTROENTERITIS SECONDARY TO NOROVIRUS 02/2018 GI BLEED 04/23/2018 FALL WITH LOW BLOOD PRESSURE 07/04/2018 REVIEW OF SYSTEMS REVIEWED BY: PROVIDER: MARSHA MAJOR . CONSTITUTIONAL: ANY CHANGE IN YOUR MEDICAL CONDITION? YES, FIBROMYALGIA . CHILLS NO . FEVER NO . INFECTION: DO YOU HAVE NEW INFECTIONS? NO . DO YOU HAVE HISTORY OF MRSA? NO . MUSCULOSKELETAL: ANY NEW PATTERNS OF PAIN OR NUMBNESS? YES, INCREASE IN PAIN ALL OVER AND SWELLING IN HER LEGS . GASTROENTEROLOGY: ANY NEW CHANGE IN BOWEL CONTROL? NO . GENITOURINARY: ANY NEW CHANGE IN BLADDER CONTROL? YES, LATELY SHE IS INCONTINENT ON HER WAY TO THE BATHROOM . IS THERE A CHANCE YOU COULD BE ? NO . HEMATOLOGY/LYMPH: DO YOU TAKE ANY BLOOD THINNERS? (FOR EXAMPLE- COUMADIN, PLAVIX, AGGRENOX, PLATEL, PRADAXA, OR XARELTO) NO . WHEN WAS YOUR LAST DOSE? DATE: TIME: . NEUROLOGY: HAVE YOU FALLEN IN THE PAST 12 MONTHS? NO . ANY NEW EXTREMITY NUMBNESS OR WEAKNESS? YES, PAIN AND NUMBNESS HAS GONE TO HER LEFT LEG . CARDIOLOGY: DO YOU HAVE A PACEMAKER OR DEFIBRILLATOR? NO . RESPIRATORY: HAVE YOU BEEN SICK IN THE PAST WEEK? NO . FEVER NO . FLU LIKE SYMPTOMS? NO . COUGH NO . INTEGUMENTARY: DO YOU HAVE ANY RASHES OR OPEN SORES? NO . ALLERGIC/IMMUNO: ARE YOU ALLERGIC TO IV DYE? NO . ANY NEW ALLERGIES? NO . PSYCHIATRIC: DO YOU HAVE THOUGHTS OF HURTING YOURSELF OR SOMEONE ELSE? NO . ARE YOU ABUSED, NEGLECTED, OR IN AN UNSAFE ENVIRONMENT? NO . ENDOCRINOLOGY: ARE YOU DIABETIC? YES . OTHER: DO YOU NEED ANY PRESCRIPTIONS? YES . IF YES, PLEASE LIST: VICODIN AND CYMBALTA . ANY NEW PROBLEMS WITH YOUR MEDICATIONS? NO . WHEN DID YOU LAST EAT? ____ . WHEN DID YOU LAST DRINK? ____ . WHAT DID YOU LAST DRINK? ____ . NAME OF PERSON DRIVING YOU HOME? ____ . DO YOU HAVE ANY OTHER QUESTIONS OR CONCERNS YES, CONCERNED ABOUT THE SWELLING IN BOTH LEGS, STATES THAT THE SWELLING HURTS--HAS HAD FOR 2 WEEKS . VITAL SIGNS WT 201.4 LBS, HT 63.5 IN, BMI 35.11 INDEX, BP 130/80 MM HG, HR 53 /MIN, RR 18 /MIN, TEMP 96.4 F, OXYGEN SAT % 100%, SAFE IN ENV? (Y/N) Y, NA INITIALS SC 11:00, REVIEWED BY: MITCHEL. EXAMINATION GENERAL EXAMINATION: GENERALNO ACUTE DISTRESS, WELL NOURISHED AND HYDRATED. PSYCHAPPROPRIATE MOOD AND AFFECT . LUNGS:CLEAR TO AUSCULTATION BILATERALLY, NO WHEEZES, RHONCHI, RALES. HEART:NO MURMURS, REGULAR RATE AND RHYTHM. ASSESSMENTS INTERVERTEBRAL DISC DISORDER WITH RADICULOPATHY OF LUMBAR REGION - M51.16 (PRIMARY) TREATMENT INTERVERTEBRAL DISC DISORDER WITH RADICULOPATHY OF LUMBAR REGION DECREASE LYRICA CAPSULE, 50 MG, 1 CAPSULE, ORALLY, TWICE DAILY, 30 DAYS, 60 REFILL HYDROCODONE-ACETAMINOPHEN TABLET, 5-325 MG, 1 TABLET NEEDED, ORALLY, DAILY FOR PAIN, 30 DAYS, 30, REFILLS 0 REFILL CYMBALTA CAPSULE DELAYED RELEASE PARTICLES, 30 MG, 1 CAPSULE, ORALLY, ONCE A DAY, 30 DAY(S), 30 CLINICAL NOTES: 68 YEAR OLD FEMALE IN FOR CHRONIC PAIN FOLLOW-UP. GIVEN PRESENTING SYMPTOMS AND RESULTS OF PHYSICAL EXAMINATION RECOMMENDED DECREASING LYRICA TO 50MG BID GIVEN LEG SWELLING AND CONTINUING WITH HYDROCODONE. PATIENT HAS EXPRESSED UNDERSTANDING OF AND WAS IN AGREEMENT WITH TREATMENT PLAN. GIVEN TIME TO ASK QUESTIONS AND EXPRESS CONCERNS. , ISTOP REGISTRY REVIEWED AND DEMONSTRATES COMPLIANCE. (REF # [id number] ) BRINGS IN MEDICATIONS WHICH IS APPROPRIATE FOR WHAT WAS DISPENSED. RECENT URINE TOXICOLOGY REVIEWED. NO UNAUTHORIZED MEDICATIONS. NO ILLICIT SUBSTANCES AND PRESCRIBED MEDICATIONS WERE PRESENT. . PROCEDURE CODES FA211 ESTABILISHED PATIENT [facility] CHARGE DISPOSITION & COMMUNICATION FOLLOW UP 2 MONTHS (REASON: CHRONIC PAIN) ELECTRONICALLY SIGNED BY YENY BURCIAGA ON 01/06/2019 AT 09:23 AM EST DISCLAIMER : THIS IS A VISIT SUMMARY EXTRACTED FROM THE [facility] CHART. IT IS NOT A COPY OF THE [facility] PROGRESS NOTE. GLORIA
== END ==
LOC: M PAIN 10:30
PROVIDERS: ATTEND Family Medicine
DX: M51.16 Intervertebral disc disorders with radiculopathy, lumbar region (principal); G89.29 Other chronic pain; E11.9 Type 2 diabetes mellitus without complications; E78.5 Hyperlipidemia, unspecified; E03.9 Hypothyroidism, unspecified; I10 Essential (primary) hypertension; M79.7 Fibromyalgia; Z87.891 Personal history of nicotine dependence; Z88.1 Allergy status to other antibiotic agents; Z79.82 Long term (current) use of aspirin; Z79.4 Long term (current) use of insulin; Z79.899 Other long term (current) drug therapy

== ENCOUNTER 2019-01-08 10:23 | Emergency (ER) | payer OTHER ==
[~2019-01-08] VITALS: Ht 162.6 cm; Wt 89.1 kg
[2019-01-08] MEDS ORDERED: NS 500 ML IV ONE (11:00)
[2019-01-08 11:04] LABS: HEMATOCRIT 39.8 % (36.0-47.0); HEMOGLOBIN 13.1 g/dl (12.0-15.5); MEAN CORPUSCULAR HEMOGLOBIN 29.6 pg (27.0-33.0); MEAN CORPUSCULAR HGB CONC 32.9 g/dl (32.0-36.5); MEAN CORPUSCULAR VOLUME 89.8 fl (80.0-96.0); PLATELET COUNT, AUTOMATED 130 10^3/uL (150-450); RED BLOOD COUNT 4.43 10^6/uL (4.00-5.40); WHITE BLOOD COUNT 6.1 10^3/uL (4.0-10.0)
--- NOTE | 2019-01-08 11:20 | REP ---
CT brain: 01/08/2019. Indication: Dizziness. Comparison: 07/05/2018 Technique: Unenhanced axial CT images of the brain were obtained from skull base to vertex. Findings: There is no acute intracranial hemorrhage, acute cortical infarction, mass effect, hydrocephalus or significant fluid in the paranasal sinuses/mastoid air cells. Diffuse volume loss is present. Impression: No acute intracranial process. Electronically Signed by Jg Suarez DO 01/08/2019 11:12 A
[2019-01-08 11:30] LABS: ALBUMIN 2.7 GM/DL (3.2-5.2); ALT/SGPT 35 U/L (12-78); BILIRUBIN,TOTAL 0.9 MG/DL (0.2-1.0); BLOOD UREA NITROGEN 14 MG/DL (7-18); CALCIUM LEVEL 8.2 MG/DL (8.8-10.2); CARBON DIOXIDE LEVEL 24 MEQ/L (21-32); CHLORIDE LEVEL 104 MEQ/L (98-107); CK-MB VALUE MASS 1.5 NG/ML (<3.6); CPK CREATINE PHOSPHOKINASE 73 U/L (26-192); CREATININE FOR GFR 0.96 MG/DL (0.55-1.30); GLOMERULAR FILTRATION RATE > 60.0 (>45); GLUCOSE, FASTING 295 MG/DL (70-100); MB/CK RELATIVE INDEX 2.05 (< OR =4); POTASSIUM SERUM 3.7 MEQ/L (3.5-5.1); SODIUM LEVEL 140 MEQ/L (136-145); TOTAL PROTEIN 5.7 GM/DL (6.4-8.2); TROPONIN I 0.16 NG/ML (< 0.10)
[2019-01-08] MEDS ORDERED: NS 1,000 ML IV ONE ×2 (12:00→13:15)
--- NOTE | 2019-01-08 12:07 | REP ---
Portable chest x-ray: Single view. History: Hypotension. Comparison chest x-ray: April 23, 2018. Findings: Monitoring electrodes are seen. There are clips in right upper quadrant of the abdomen. Minimal linear fibrosis is seen in the left base. No infiltrate is noted. Coronary artery stent material is visible. Heart is not felt to be enlarged. Pulmonary vasculature is not increased. Impression: Linear fibrosis left base. Coronary artery stent material visible. Otherwise no acute disease. Electronically Signed by Frantz Ruiz MD 01/08/2019 12:29 P
[2019-01-08] MEDS ORDERED: CARVedilol 6.25 MG TAB PO ONE (16:45)
[2019-01-08] MEDS ORDERED: **hydrALAZINE HCL** 25 MG TAB PO ONE (18:15)
[2019-01-08 18:31] VITALS: BP 204/78
--- NOTE | 2019-01-08 18:32 | ECGEPIP ---
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
[2019-01-08 18:59] LABS: CK-MB VALUE MASS 2.1 NG/ML (<3.6); MB/CK RELATIVE INDEX 2.26 (< OR =4); TROPONIN I 0.16 NG/ML (< 0.10)
[2019-01-08 19:32] VITALS: BP 148/65
== END 2019-01-08 19:52 | disposition home or self-care (01) ==
LOC: EDBD 10:23 → M ED 10:23
DX: I95.1 Orthostatic hypotension (principal); R00.1 Bradycardia, unspecified; E11.9 Type 2 diabetes mellitus without complications; I11.0 Hypertensive heart disease with heart failure; I50.9 Heart failure, unspecified; E03.9 Hypothyroidism, unspecified; Z95.5 Presence of coronary angioplasty implant and graft; Z87.891 Personal history of nicotine dependence; Z88.1 Allergy status to other antibiotic agents; Z79.899 Other long term (current) drug therapy; Z79.4 Long term (current) use of insulin; Z79.84 Long term (current) use of oral hypoglycemic drugs; Z79.82 Long term (current) use of aspirin

== ENCOUNTER 2019-01-30 18:17 | Emergency (ER) | payer OTHER ==
[~2019-01-30] VITALS: Ht 162.6 cm; Wt 93.2 kg
[2019-01-30 18:41] VITALS: BP 138/72
[2019-01-30] MEDS ORDERED: NORCO, ANEXSIA 5/325MG TABLET (HYDROcodone/ACETAMINOPHEN) PO ONE (18:45)
--- NOTE | 2019-01-30 19:49 | REP ---
PA CHEST WITH LEFT RIBS: 01/30/2019. Comparison: AP portable chest 01/08/2019. Clinical history: Trauma. Findings: PA chest shows the lungs adequately inflated. The heart is enlarged with left ventricular and atrial enlargement. Venous hypertension seen without pulmonary edema. There is some minor linear atelectatic or fibrotic change in the left lateral base and no evidence for pneumothorax. The aorta and airway are intact. Anterolateral minimally displaced rib fractures on the left, fourth and fifth ribs noted on one of the oblique views, not visible on any other. Small effusion difficult to exclude. No pneumothorax. Remainder of the visualized ribs intact. Degenerative changes throughout the spine with AC joint arthritis as well. Impression: 1. Anterolateral left 4th and 5th rib fractures with some linear subsegmental atelectasis and question of a small effusion. No pneumothorax. 2. Cardiomegaly with left atrial and left ventricular enlargement, some venous hypertension but no edema or effusion. Electronically Signed by Jake Duarte MD 01/30/2019 08:05 P
--- NOTE | 2019-01-30 19:51 | REP ---
AP PELVIS: 01/30/2019. Clinical history: Trauma. Findings: Single view of the pelvis without prior studies shows the pelvic ring intact. SI joints symmetric. Sacral ala and foramina intact. Pubic rami, symphysis pubis unremarkable. Hips show symmetric joint spaces with mild degenerative change. No gross evidence for fracture at the peripheral margin of the greater trochanters excluded on the left. Impression: 1. No visible or displaced fracture of the pelvis. The greater trochanter peripheral margin is excluded and if the patient is tender over that left greater trochanter, a dedicated left hip series might be helpful. Electronically Signed by Jake Duarte MD 01/30/2019 08:06 P
== END 2019-01-30 20:13 | disposition home or self-care (01) ==
LOC: M ED 18:17
DX: S30.0XXA Contusion of lower back and pelvis, initial encounter (principal); S22.42XA Multiple fractures of ribs, left side, initial encounter for closed fracture; W18.39XA Other fall on same level, initial encounter; Y92.481 Parking lot as the place of occurrence of the external cause; I11.0 Hypertensive heart disease with heart failure; I50.9 Heart failure, unspecified; E11.9 Type 2 diabetes mellitus without complications; N18.9 Chronic kidney disease, unspecified; M79.7 Fibromyalgia; E78.9 Disorder of lipoprotein metabolism, unspecified; K21.9 Gastro-esophageal reflux disease without esophagitis; E07.9 Disorder of thyroid, unspecified; Z79.899 Other long term (current) drug therapy; Z79.890 Hormone replacement therapy; Z79.82 Long term (current) use of aspirin; Z79.4 Long term (current) use of insulin; Z88.1 Allergy status to other antibiotic agents

== ENCOUNTER 2019-02-21 10:59 | Emergency (ER) | payer OTHER ==
[~2019-02-21] VITALS: Ht 165.1 cm; Wt 95.9 kg
[2019-02-21] MEDS ORDERED: ISOS30TA4 (11:22)
[2019-02-21] MEDS ORDERED: PREG50CA2 (11:22)
[2019-02-21] MEDS ORDERED: HYDR-3713 (11:22)
[2019-02-21 11:43] LABS: BASO # 0.1 10^3/uL (0.0-0.2); BASO % 1.1 % (0.0-1.0); EOS # 0.4 10^3/uL (0.0-0.5); EOS % 5.7 % (0.0-3.0); HEMATOCRIT 35.2 % (36.0-47.0); HEMOGLOBIN 11.3 g/dl (12.0-15.5); LYMPH % 32.1 % (24.0-44.0); MEAN CORPUSCULAR HEMOGLOBIN 28.6 pg (27.0-33.0); MEAN CORPUSCULAR HGB CONC 32.1 g/dl (32.0-36.5); MEAN CORPUSCULAR VOLUME 89.1 fl (80.0-96.0); MONO # 0.7 10^3/uL (0.0-0.8); MONO % 12.1 % (0.0-5.0); NEUTROPHILS % 48.8 % (36.0-66.0); PLATELET COUNT, AUTOMATED 167 10^3/uL (150-450); RED BLOOD COUNT 3.95 10^6/uL (4.00-5.40); WHITE BLOOD COUNT 6.1 10^3/uL (4.0-10.0)
[2019-02-21 12:13] LABS: ALBUMIN 2.4 GM/DL (3.2-5.2); ALT/SGPT 23 U/L (12-78); BILIRUBIN,TOTAL 0.8 MG/DL (0.2-1.0); BLOOD UREA NITROGEN 16 MG/DL (7-18); CALCIUM LEVEL 8.3 MG/DL (8.8-10.2); CARBON DIOXIDE LEVEL 22 MEQ/L (21-32); CHLORIDE LEVEL 109 MEQ/L (98-107); CREATININE FOR GFR 0.82 MG/DL (0.55-1.30); GLOMERULAR FILTRATION RATE > 60.0 (>45); GLUCOSE, FASTING 240 MG/DL (70-100); POTASSIUM SERUM 4.4 MEQ/L (3.5-5.1); SODIUM LEVEL 141 MEQ/L (136-145); TOTAL PROTEIN 5.7 GM/DL (6.4-8.2)
[2019-02-21] MEDS ORDERED: NS 1,000 ML IV SCH (13:15)
[2019-02-21] MEDS ORDERED: MECLIZINE 25 MG TABLET PO ONE (13:15)
[2019-02-21 14:11] LABS: MB/CK RELATIVE INDEX 1.64 (< OR =4); TROPONIN I 0.11 NG/ML (< 0.10)
[2019-02-21] MEDS ORDERED: MECL-68 PO (14:53)
[2019-02-21 15:01] VITALS: BP 158/82
--- NOTE | 2019-02-22 15:30 | ECGEPIP ---
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
== END 2019-02-21 15:13 | disposition home or self-care (01) ==
LOC: M ED 10:59 → EDBD 10:59 → M ED 15:13
DX: H81.4 Vertigo of central origin (principal); H83.09 Labyrinthitis, unspecified ear; E11.9 Type 2 diabetes mellitus without complications; I11.9 Hypertensive heart disease without heart failure; E07.9 Disorder of thyroid, unspecified; M54.9 Dorsalgia, unspecified

== ENCOUNTER 2019-02-26 10:24 | Emergency (ER) | payer OTHER ==
[~2019-02-26] VITALS: Ht 167.6 cm; Wt 96.4 kg
[~2019-02-26 10:24] MED LIST changes: +HYDR-3713; +ISOS30TA4; +MECL-68 PO; +PREG50CA2
[2019-02-26] MEDS ORDERED: DULO1CAP5 (11:10)
[2019-02-26] MEDS ORDERED: MECLIZINE 25 MG TABLET PO ONE (11:15)
--- NOTE | 2019-02-26 11:44 | REP ---
Clinical: Fall with chest and back pain . Comparison: 01/30/2019 . Technique: PA and lateral. Findings: Stable cardiomegaly and chronic interstitial changes with left-sided linear scarring again noted. Elevation to the right hemidiaphragm stable. No acute consolidation, effusion, or pneumothorax. Skeletal structures are intact. Impression: 1. No acute cardiopulmonary process. Electronically Signed by Zbigniew Davis MD 02/26/2019 11:36 A
--- NOTE | 2019-02-26 11:46 | REP ---
CT brain: 02/26/2019. Indication: Ataxia. Head trauma. Comparison: 01/08/2019. Technique: Unenhanced axial images of the brain were obtained from skull base to vertex with coronal reconstructions provided. Findings: There is no acute intracranial hemorrhage, acute cortical infarction, mass effect, hydrocephalus or acute calvarial fracture. Diffuse volume loss is present. Impression: No acute intracranial process. Electronically Signed by Jg Suarez DO 02/26/2019 11:37 A
--- NOTE | 2019-02-26 11:47 | REP ---
Clinical: Fall. Back pain. Technique: AP, lateral, swimmers views of the thoracic spine. Findings: Multilevel age-related degenerative changes are appreciated. Alignment and kyphosis maintained. No acute fracture / compression injury or subluxation. Impression: No acute fracture / compression injury or subluxation. Electronically Signed by Zbigniew Dvais MD 02/26/2019 11:38 A
--- NOTE | 2019-02-26 11:59 | REP ---
CT cervical spine: 02/26/2019. Indication: Cervical spine trauma. Comparison: 07/05/2018. Technique: Unenhanced axial CT images of the cervical spine were performed with coronal and sagittal reconstructions provided. Findings: Evaluation of the cervical spine is suboptimal secondary to quantum model artifact from the mid to lower cervical spine. There is slight reversal of the cervical lordosis centered at C3/C4. There is no acute fracture, subluxation or dislocation. No significant hemorrhage or additional acute post traumatic abnormalities are noted within the spinal canal. Moderately hypertrophic left palatine tonsil is noted for which direct inspection correlation is recommended. Bilateral carotid atherosclerotic disease is present. Multilevel spondylosis is present most pronounced at C5/C6 and C6/C7. No severe spinal canal narrowing is detected. Impression: No acute post traumatic osseous injuries of the cervical spine detected. Prominent left palatine tonsil for which direct inspection correlation is recommended. Electronically Signed by Jg Suarez DO 02/26/2019 11:51 A
[2019-02-26 12:00] LABS: BASO # 0.1 10^3/uL (0.0-0.2); EOS # 0.4 10^3/uL (0.0-0.5); EOS % 6.3 % (0.0-3.0); HEMATOCRIT 39.1 % (36.0-47.0); HEMOGLOBIN 12.5 g/dl (12.0-15.5); LYMPH % 34.8 % (24.0-44.0); MEAN CORPUSCULAR HEMOGLOBIN 28.3 pg (27.0-33.0); MEAN CORPUSCULAR VOLUME 88.5 fl (80.0-96.0); MONO # 0.6 10^3/uL (0.0-0.8); MONO % 9.4 % (0.0-5.0); NEUTROPHILS # 2.8 10^3/uL (1.5-8.5); NEUTROPHILS % 48.3 % (36.0-66.0); PLATELET COUNT, AUTOMATED 165 10^3/uL (150-450); RED BLOOD COUNT 4.42 10^6/uL (4.00-5.40); WHITE BLOOD COUNT 5.9 10^3/uL (4.0-10.0)
[2019-02-26 12:31] LABS: ALBUMIN 2.7 GM/DL (3.2-5.2); ALT/SGPT 24 U/L (12-78); BILIRUBIN,TOTAL 0.8 MG/DL (0.2-1.0); BLOOD UREA NITROGEN 20 MG/DL (7-18); CALCIUM LEVEL 8.5 MG/DL (8.8-10.2); CARBON DIOXIDE LEVEL 20 MEQ/L (21-32); CHLORIDE LEVEL 110 MEQ/L (98-107); CK-MB VALUE MASS 1.3 NG/ML (<3.6); CPK CREATINE PHOSPHOKINASE 59 U/L (26-192); CREATININE FOR GFR 0.81 MG/DL (0.55-1.30); GLOMERULAR FILTRATION RATE > 60.0 (>45); GLUCOSE, FASTING 174 MG/DL (70-100); NT-PRO BNP 388 PG/ML (<125); SODIUM LEVEL 142 MEQ/L (136-145); TOTAL PROTEIN 6.3 GM/DL (6.4-8.2); TROPONIN I 0.14 NG/ML (< 0.10)
[2019-02-26 13:30] VITALS: BP 155/65
--- NOTE | 2019-02-26 14:50 | REP ---
Clinical: right lower extremity swelling Technique: Jaramillo scale and color Doppler evaluation using linear high frequency transducer. Findings: Ultrasound examination of the right lower extremity deep venous structures from the common femoral vein to the popliteal vein demonstrates normal compressibility flow and wave patterns in response to respiration and augmentation. There is no evidence for deep venous thrombosis. Impression: No evidence for deep venous thrombosis. Electronically Signed by Zbigniew Davis MD 02/26/2019 02:41 P
--- NOTE | 2019-02-26 15:00 | REP ---
MRI brain: 02/26, 10/15/2019. Indication: Dizziness. Comparison: No previous MRI studies are available for direct comparison. Technique: Multiplanar short and long TR sequences of the brain were obtained without IV Gadolinium. Findings: Image quality is degraded by patient motion. No areas of restricted diffusion to suggest an acute infarction. There is no intracranial mass effect, hydrocephalus or significant hemorrhage. Small chronic posterior left thalamic lacunar infarction is present. Elevated basal ganglion T1 signal suggests possible underlying liver disease. Scattered areas of elevated T2 signal are present throughout the cerebral hemisphere white matter. Impression: No acute intracranial process. Sequelae of chronic microangiopathic ischemic disease. Elevated basal ganglia T1 signal. Chronic liver disease? Electronically Signed by Jg Suarez DO 02/26/2019 02:52 P
--- NOTE | 2019-02-27 14:43 | ECGEPIP ---
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
--- NOTE | 2019-03-01 17:06 | ED PDOC ---
Post-Departure Follow-Up dr san faxed formal report of ct c spine for fu Angie St MD Mar 01, 2019 17:06
== END 2019-02-26 17:42 | disposition home or self-care (01) ==
LOC: M ED 10:24 → EDBD 10:24 → M ED 17:42
DX: R42 Dizziness and giddiness (principal); R79.89 Other specified abnormal findings of blood chemistry; R22.41 Localized swelling, mass and lump, right lower limb; R00.1 Bradycardia, unspecified; I51.7 Cardiomegaly; I25.2 Old myocardial infarction; I50.9 Heart failure, unspecified; E11.9 Type 2 diabetes mellitus without complications; I10 Essential (primary) hypertension; E78.5 Hyperlipidemia, unspecified; M79.7 Fibromyalgia; K21.9 Gastro-esophageal reflux disease without esophagitis; N18.9 Chronic kidney disease, unspecified; E03.9 Hypothyroidism, unspecified; F41.9 Anxiety disorder, unspecified; F32.9 Major depressive disorder, single episode, unspecified; Z95.5 Presence of coronary angioplasty implant and graft; Z79.82 Long term (current) use of aspirin; Z79.4 Long term (current) use of insulin; Z79.899 Other long term (current) drug therapy; Z88.1 Allergy status to other antibiotic agents

== ENCOUNTER 2019-04-02 09:41 | Emergency (ER) | payer OTHER ==
[~2019-04-02] VITALS: Ht 165.1 cm; Wt 94.4 kg
[~2019-04-02 09:41] MED LIST changes: +DULO1CAP5; -MECL-68 PO; +MECL1TAB31 PO; -VALS160T PO; +VALS160T2 PO
[2019-04-02 10:12] VITALS: BP 141/65
== END 2019-04-02 10:24 | disposition home or self-care (01) ==
LOC: M ED 09:41 → EDBD 09:41 → M ED 10:24
DX: R42 Dizziness and giddiness (principal); E11.9 Type 2 diabetes mellitus without complications; I11.0 Hypertensive heart disease with heart failure; I50.9 Heart failure, unspecified; E78.5 Hyperlipidemia, unspecified; K74.60 Unspecified cirrhosis of liver; Z79.899 Other long term (current) drug therapy; Z79.4 Long term (current) use of insulin; Z79.82 Long term (current) use of aspirin; Z88.1 Allergy status to other antibiotic agents
CPT/HCPCS: 99284; G0463

== ENCOUNTER → 2019-04-07 | Outpatient (CLI) | payer OTHER ==
[2019-04-07 14:24] LABS: HEMATOCRIT 36.3 % (36.0-47.0); HEMOGLOBIN 11.4 g/dl (12.0-15.5); MEAN CORPUSCULAR HEMOGLOBIN 27.3 pg (27.0-33.0); MEAN CORPUSCULAR HGB CONC 31.4 g/dl (32.0-36.5); MEAN CORPUSCULAR VOLUME 87.1 fl (80.0-96.0); PLATELET COUNT, AUTOMATED 153 10^3/uL (150-450); RED BLOOD COUNT 4.17 10^6/uL (4.00-5.40); WHITE BLOOD COUNT 6.7 10^3/uL (4.0-10.0)
[2019-04-07 14:44] LABS: BLOOD UREA NITROGEN 23 MG/DL (7-18); CALCIUM LEVEL 8.8 MG/DL (8.8-10.2); CARBON DIOXIDE LEVEL 24 MEQ/L (21-32); CHLORIDE LEVEL 106 MEQ/L (98-107); CREATININE FOR GFR 0.83 MG/DL (0.55-1.30); GLOMERULAR FILTRATION RATE > 60.0 (>45); GLUCOSE, FASTING 186 MG/DL (70-100); POTASSIUM SERUM 4.3 MEQ/L (3.5-5.1); SODIUM LEVEL 141 MEQ/L (136-145)
== END ==
LOC: M WUC 11:30
PROVIDERS: ATTEND Family Medicine
DX: R00.2 Palpitations (principal)

== ENCOUNTER → 2019-07-02 | Outpatient (REF) | payer OTHER ==
[2019-07-02 12:48] LABS: BLOOD UREA NITROGEN 24 MG/DL (7-18); CALCIUM LEVEL 9.2 MG/DL (8.8-10.2); CARBON DIOXIDE LEVEL 23 MEQ/L (21-32); CHLORIDE LEVEL 104 MEQ/L (98-107); CREATININE FOR GFR 0.78 MG/DL (0.55-1.30); GLOMERULAR FILTRATION RATE > 60.0 (>45); GLUCOSE, FASTING 303 MG/DL (70-100); POTASSIUM SERUM 4.5 MEQ/L (3.5-5.1); SODIUM LEVEL 139 MEQ/L (136-145)
[2019-07-02 14:07] LABS: HEMOGLOBIN A1c 12.9 %
== END ==
LOC: M SFHCPLAZ 09:55
PROVIDERS: ATTEND Family Medicine
DX: E11.8 Type 2 diabetes mellitus with unspecified complications (principal); N18.3 Chronic kidney disease, stage 3 (moderate)
CPT/HCPCS: 36415; 80048; 83036; G0463

== ENCOUNTER → 2019-09-03 | Outpatient (REF) | payer OTHER ==
[~2019-09-03] MED LIST changes: +ACET1TAB55 PO; -AMLO10TA5 PO; +AMLO1TAB24 PO; +AMLO1TAB25 PO; -AMLO5TAB6 PO; -ASPI81TA85 PO; +ASPI81TA86 PO; +BIOF4GEL4 TOP; +CARV3.12 PO; +CEFU50TA PO; -DULO1CAP5; +DULO1CAP5 PO; -HYDR-3713; +HYDR-3713 PO; +KLOR10TA76 PO; -METF-700 PO; +METF-818 PO; +METF-838 PO; +PANT40TA29 PO; -PANT40TA3 PO; +POTA10TA17 PO; +TORS20TA2 PO
[2019-09-03 12:51] LABS: APPEARANCE, URINE CLEAR (CLEAR); BACTERIA, URINE AUTO NEGATIVE (NEGATIVE); BILIRUBIN, URINE AUTO NEGATIVE (NEGATIVE); BLOOD, URINE BLOOD NEGATIVE (NEGATIVE); COLOR, URINE YELLOW (YELLOW); GLUCOSE, URINE (UA) AUTO 3+ mg/dL (NEGATIVE); KETONE, URINE AUTO NEGATIVE (NEGATIVE); LEUKOCYTE ESTERASE, URINE AUTO TRACE (NEGATIVE); NITRITE, URINE AUTO NEGATIVE (NEGATIVE); PROTEIN, URINE AUTO 1+ mg/dL (NEGATIVE); RBC, URINE AUTO 1 /HPF (0-3); SPECIFIC GRAVITY URINE AUTO 1.015 (1.002-1.035); SQUAMOUS EPITHELIAL CELL UR AU 1 /HPF (0-6); UROBILINOGEN, URINE AUTO 0.2 mg/dL (0.0-2.0); WBC, URINE AUTO 2 /HPF (0-3)
[2019-09-03 13:03] LABS: BASO # 0.1 10^3/uL (0.0-0.2); BASO % 1.5 % (0.0-1.0); EOS # 0.5 10^3/uL (0.0-0.5); EOS % 6.8 % (0.0-3.0); HEMATOCRIT 32.3 % (36.0-47.0); HEMOGLOBIN 8.9 g/dl (12.0-15.5); LYMPH % 30.5 % (24.0-44.0); MEAN CORPUSCULAR HEMOGLOBIN 18.8 pg (27.0-33.0); MEAN CORPUSCULAR HGB CONC 27.6 g/dl (32.0-36.5); MEAN CORPUSCULAR VOLUME 68.1 fl (80.0-96.0); MONO # 0.7 10^3/uL (0.0-0.8); NEUTROPHILS # 3.3 10^3/uL (1.5-8.5); NEUTROPHILS % 50.9 % (36.0-66.0); PLATELET COUNT, AUTOMATED 216 10^3/uL (150-450); RED BLOOD COUNT 4.74 10^6/uL (4.00-5.40); WHITE BLOOD COUNT 6.6 10^3/uL (4.0-10.0)
[2019-09-03 14:14] LABS: ALT/SGPT 33 U/L (12-78); BILIRUBIN,TOTAL 0.8 MG/DL (0.2-1.0); BLOOD UREA NITROGEN 15 MG/DL (7-18); CALCIUM LEVEL 9.1 MG/DL (8.8-10.2); CARBON DIOXIDE LEVEL 27 MEQ/L (21-32); CHLORIDE LEVEL 105 MEQ/L (98-107); CREATININE FOR GFR 0.69 MG/DL (0.55-1.30); GLOMERULAR FILTRATION RATE > 60.0 (>45); GLUCOSE, FASTING 167 MG/DL (70-100); POTASSIUM SERUM 4.2 MEQ/L (3.5-5.1); SODIUM LEVEL 140 MEQ/L (136-145); TOTAL PROTEIN 6.9 GM/DL (6.4-8.2)
== END ==
LOC: M SFHCPLAZ 10:22
PROVIDERS: ATTEND Family Medicine
DX: R63.4 Abnormal weight loss (principal)

== ENCOUNTER 2019-09-07 12:04 | Inpatient (IN) | payer OTHER, MEDICARE ==
[~2019-09-07] VITALS: Ht 167.6 cm; Wt 83.3 kg
[2019-09-07] VITALS (12 sets, daily range): BP systolic 123–176; BP diastolic 52–78
[~2019-09-07 12:04] MED LIST changes: -ACET1TAB55 PO; -BIOF4GEL4 TOP; -CARV3.12 PO; -CEFU50TA PO; -KLOR10TA76 PO; -METF-838 PO; -POTA10TA17 PO; -TORS20TA2 PO
[2019-09-07 13:02] LABS: BASO # 0.1 10^3/uL (0.0-0.2); BASO % 0.9 % (0.0-1.0); EOS # 0.2 10^3/uL (0.0-0.5); EOS % 2.5 % (0.0-3.0); HEMATOCRIT 27.8 % (36.0-47.0); HEMOGLOBIN 7.8 g/dl (12.0-15.5); LYMPH # 2.2 10^3/uL (1.5-5.0); LYMPH % 33.1 % (24.0-44.0); MEAN CORPUSCULAR HEMOGLOBIN 18.8 pg (27.0-33.0); MEAN CORPUSCULAR HGB CONC 28.1 g/dl (32.0-36.5); MEAN CORPUSCULAR VOLUME 67.1 fl (80.0-96.0); MONO # 0.8 10^3/uL (0.0-0.8); MONO % 11.6 % (0.0-5.0); NEUTROPHILS # 3.5 10^3/uL (1.5-8.5); NEUTROPHILS % 51.6 % (36.0-66.0); PLATELET COUNT, AUTOMATED 177 10^3/uL (150-450); RED BLOOD COUNT 4.14 10^6/uL (4.00-5.40); WHITE BLOOD COUNT 6.7 10^3/uL (4.0-10.0)
[2019-09-07 13:19] LABS: BLOOD UREA NITROGEN 19 MG/DL (7-18); CALCIUM LEVEL 8.8 MG/DL (8.8-10.2); CARBON DIOXIDE LEVEL 23 MEQ/L (21-32); CHLORIDE LEVEL 103 MEQ/L (98-107); GLOMERULAR FILTRATION RATE > 60.0 (>45); GLUCOSE, FASTING 320 MG/DL (70-100); POTASSIUM SERUM 3.8 MEQ/L (3.5-5.1); SODIUM LEVEL 136 MEQ/L (136-145)
[2019-09-07 13:34] LABS: ALBUMIN 2.6 GM/DL (3.2-5.2); BILIRUBIN,DIRECT 0.2 MG/DL (0.0-0.2); BILIRUBIN,TOTAL 0.9 MG/DL (0.2-1.0); CK-MB VALUE MASS 1.9 NG/ML (<3.6); MB/CK RELATIVE INDEX 3.17 (< OR =4); THYROID STIMULATING HORMONE 2.55 uIU/ML (0.358-3.740); TOTAL PROTEIN 5.9 GM/DL (6.4-8.2); TROPONIN I 0.33 NG/ML (< 0.10)
[2019-09-07 13:44] LABS: INR 1.17; PROTHROMBIN TIME 14.6 SECONDS (11.8-14.0)
[2019-09-07 13:45] LABS: PARTIAL THROMBOPLASTIN TIME 29.4 SECONDS (25.0-38.4)
[2019-09-07] MEDS ORDERED: BIOF4GEL4 TOP (14:51)
[2019-09-07] MEDS ORDERED: METF-838 PO (14:51)
[2019-09-07] MEDS ORDERED: NORCO, ANEXSIA 5/325MG TABLET (HYDROcodone/ACETAMINOPHEN) PO PRN (16:00)
--- NOTE | 2019-09-07 16:35 | ECGEPIP ---
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
[2019-09-07] MEDS: SUCRALFATE SUSP 1GM/10ML UD PO SCH ×2 (17:33→21:09)
[2019-09-07] MEDS: metFORMIN XR 500MG TAB *GLUCOPHAGE XR PO SCH (17:33)
--- NOTE | 2019-09-07 20:30 | HPE ---
DATE OF ADMISSION: 09/07/2019 CHIEF COMPLAINT: "I don't feel good." HISTORY OF THE PRESENT ILLNESS: This is a 69-year-old female who has a history of diabetes, hypercholesterolemia, hypertension, hypothyroidism, right humeral fracture, coronary artery disease, myocardial infarction (AR), non-alcoholic steatohepatitis, liver cirrhosis, Link's cyst, congestive heart failure, grade 2 diastolic dysfunction, ejection fraction (EF) of 50%. She was in her usual state of health until today when she went out to go play cards with her friend. The patient said that she got up, she felt that was good with her balance, she went in her wheelchair, she fed her cat, emptied the litter box, and she was getting ready to go to her friend's house to play cards, she lives in an apartment building, and went to the elevator, when she did not feel well, felt a little lightheaded, a little dizzy, no shortness of breath. She then went back to her apartment, called her friend and said that she did not feel good. Her friend came over and saw her not feeling well; therefore, she was brought into the emergency room (ER) for evaluation. She was seen by her primary care physician earlier in the week, had a blood test done. She received a call from Dr. Mei yesterday saying that she was anemic. She had a prior esophagogastroduodenoscopy (EGD) done earlier in the year, some time in February. Per the patient, she could not take Brilinta anymore, was taken off of it and was placed on aspirin. Since then, she has had no recurrent followup. She said Dr. Zambrano did her EGD then. She otherwise denies any bright red blood per rectum, melena, black tarry stools or coffee-ground emesis. Denies any chest pain, pressure, tightness. No paroxysmal nocturnal dyspnea (PND)/orthopnea. No fever, chills or cough. She otherwise denies any changes in appetite, sore throat, bilateral upper or lower extremity paresthesias, weakness, depression, or anxiety. All other systems are otherwise negative. PAST MEDICAL HISTORY: Diabetes. Hypertension. Vitamin B12, vitamin D deficiency. Hypertension. Hypothyroidism. Tendinitis. Carpal tunnel. Coronary artery disease. M). Non-alcoholic steatohepatitis. Cirrhosis. Fibromyalgia. Link's cyst. Congestive heart failure, EF of 50%. Grade 2 diastolic dysfunction. Tendonitis. History of reactive or chemical gastritis. Prior EGD by Dr. Cas Zambrano July 2017. Reactive and chemical gastritis. No Helicobacter organisms seen. Abdominal hernia. Chronic pain. PAST SURGICAL HISTORY: Tonsillectomy. Salivary gland purulent gland removal. section. Cholecystectomy. Hysterectomy for endometrial polyps. Fistula repair in the perineal area. EGD and colonoscopy by Dr. Mustafa. Drug-eluting stent to the left anterior descending (LAD) - [facility], 06/2017. Gastric erosions, mild gastropathy, diverticulosis, otherwise normal - Dr. Zambrano 07/2017. Cataract surgery both eyes 2016. ALLERGIES: GATIFLOXACIN. HOME MEDICATIONS: - aspirin 81 mg daily - atorvastatin 20 mg daily - duloxetine 30 mg daily - Lasix 20 mg daily - hydrocodone acetaminophen one tablet as needed for pain - Levemir insulin 40 units subcu twice a day - NovoLog sliding scale - levothyroxine 25 mcg daily - losartan 100 mg daily - metformin 1 gram twice a day - Protonix 40 mg daily - tizanidine 4 mg twice a day - Farxiga 5 mg daily SOCIAL HISTORY: Previously smoked two packs a day for about 5 years, quit many, many years ago. 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 No alcohol use. Healthcare proxy is her daughter, Mario Alberto Chairez, . Patient is a FULL CODE. FAMILY HISTORY: Father due to a bleeding ulcer. Mother diabetes, kidney failure, acromegaly. Siblings - one alive. Brother has MS, diabetes, diagnosed with hypertension. REVIEW OF SYSTEMS: Per history of the present illness; 12-point system otherwise negative. PHYSICAL EXAMINATION: Temperature 97.6, pulse 67, respiratory rate 19, blood pressure 119/57, 99% on room air. Generally, the patient is slightly pale. No icterus or jaundice. No use of respiratory accessory muscles. Face is symmetric. Tongue is midline. No tracheal deviation. The patient has no jugular venous distention (JVD), thyromegaly, or cervical lymphadenopathy. Dry mucous membranes. Lungs are clear to auscultation. No wheezing, rales or rhonchi. Air entry is equal. No other adventitious breath sounds. Heart: S1, S2, sinus rhythm. No murmurs, rubs or gallops. Abdomen is soft, nontender, nondistended. Positive bowel sounds. Extremities: No cyanosis, clubbing or any pitting edema. LABORATORY DATA: White count 6.7, hemoglobin 7.8, hematocrit 27.8, platelet count 177, 51% neutrophils. Hemoccult stool per the emergency room (ER) is negative. Sodium 136, potassium 3.8, chloride 103, bicarbonate 23, BUN 19, creatinine 0.8, glucose of 320, calcium 8.8, total bilirubin 0.9, direct bilirubin 0.2, AST 31, ALT 29, alkaline phosphatase 97, total CK 60, MB fraction 1.9, troponin 0.33, total protein 5.9, albumin 2.6, TSH 2.55. EKG: Sinus bradycardia, ventricular rate of 58, short AK interval, old anterior AR with Q waves. CT of the head: Pending report. Chest x-ray: Pending report. ASSESSMENT AND PLAN: This is a 69-year-old female with a history of diastolic heart failure, EF of 65%, non-alcoholic steatohepatitis with liver cirrhosis and chemical gastritis, hypertensive, diabetic, prior history of smoking, coronary artery disease, AR with drug-eluting stent to the LAD, EGD 2018 showed gastric erosions, gastropathy, diverticulosis, hypertensive, diabetic, hypothyroid, fibromyalgia, Link's cyst. Presents to the emergency room with fatigue and weakness today, not feeling well. She was found to be anemic by her primary care physician and subsequently sent to the emergency room. She otherwise denies any active gastrointestinal (GI) bleed. Denies hematemesis, bright red blood per rectum, melena, dark, tarry stools or coffee-ground emesis. Baseline hemoglobin was 8.9 on 09/03/2019, previously 11 in March. IMPRESSION: 1. Chronic gastrointestinal bleed. Current hemoglobin is 7.8 from prior hemoglobin of 11 in March. Patient denies any acute GI bleed, bright red blood per rectum, melena, black, tarry stools, coffee-ground emesis or hematemesis at this time. The patient will be transfused two units of red blood cells (RBCs), monitored with serial hemoglobin and hematocrit. Check for Hemoccult stool. If positive and continued drop in hemoglobin, will consult gastroenterology for repeat EGD. Patient has been resumed on her low dose aspirin for her coronary artery disease, which we will continue for now unless we find that she is continually dropping her hemoglobin and is heme positive. 2. Positive cardiac markers, most likely demand-mediated ischemia from severe anemia. She currently has no acute ST-T wave changes on her EKG and troponin is only 0.33. Will cycle cardiac markers every 6 hours. If patient develops chest pain, will obtain an echocardiogram. 3. History of coronary artery disease, myocardial infarction. On aspirin, atorvastatin. 4. Type 2 diabetes. On sliding scale, consistent carbohydrate diet. Fingersticks before food and nightly. Check A1c. 5. Congestive heart failure, diastolic dysfunction. EF of 65%, appears to be compensated. Await results of the chest x-ray. Continue on two-liter fluid restriction, Lasix 20 mg daily. Continue on losartan, atorvastatin and aspirin. 6. Dyslipidemia. Continue Lipitor. 7. Hypertension. On Losartan. Appears to be well compensated. She is not orthostatic. Will continue her medications. 14. History of non-alcoholic steatohepatitis and liver cirrhosis. Appears to be compensated at this time. Outpatient followup with her gastroenteritis. CODE STATUS: FULL CODE.
[2019-09-07 21:02] LABS: PERCENT SATURATION 4.7 % (13.2-45.0)
[2019-09-07] MEDS: tiZANidine 4 MG TAB PO SCH (21:09)
[2019-09-07] MEDS: LEVEMIR (INSULIN DETEMIR) 1 UNITS/0.01ML SC SCH (21:10)
--- NOTE | 2019-09-08 00:21 | REP ---
CT BRAIN WITHOUT CONTRAST: REASON FOR EXAM: Dizziness and headache. COMPARISON EXAM: 02/26/2019, which was within normal limits for the patient's age. TECHNIQUE: 4.5 mm contiguous transaxial sections were obtained from the skull base to the cerebral convexities with thin cuts through the posterior fossa without the administration of intravenous contrast. FINDINGS: The ventricles and sulci are consistent with the patient's age. There are no extra-axial fluid collections. There is no mass effect. The deep cerebral white matter is consistent with the patient's age. The orbital and petrous structures, cerebellopontine angles, and posterior fossa are unremarkable. The sella turcica, cavernous, and paracavernous structures are essentially unremarkable. The visualized portions of the paranasal sinuses and mastoid air cells are clear. Images of the skull base show no gross abnormality. IMPRESSION: Essentially unremarkable CT examination of the brain. No significant change from the prior exam. Electronically Signed by Lizandro Frey DO 09/08/2019 11:33 A
[2019-09-08 00:41] LABS: HEMOGLOBIN 9.5 g/dl (12.0-15.5)
--- NOTE | 2019-09-08 00:46 | REP ---
REASON FOR EXAM: Dizziness. COMPARISON EXAMINATION: 02/26/2019 AP and lateral views were obtained. The technique utilized in obtaining the radiograph has magnified the cardiac silhouette and accentuated the interstitial markings. The superior mediastinal structures are midline. The cardiac silhouette is unremarkable in size, shape, and position. The diaphragmatic surfaces of the lungs are regular, and the costophrenic angles are clear. The pulmonary lloyd are clear. The imaged osseous structures are intact. IMPRESSION: There is no acute cardiopulmonary disease. No significant change from the prior exam other than technique. Electronically Signed by Lizandro Frey DO 09/08/2019 11:34 A
[2019-09-08 06:00] VITALS: BP 154/65
[2019-09-08] MEDS ORDERED: LEVOTHYROXINE 25MCG TABLET (0.025MG) PO SCH (06:00)
[2019-09-08 06:04] LABS: HEMATOCRIT 33.7 % (36.0-47.0); MEAN CORPUSCULAR HEMOGLOBIN 20.4 pg (27.0-33.0); MEAN CORPUSCULAR HGB CONC 29.7 g/dl (32.0-36.5); MEAN CORPUSCULAR VOLUME 68.9 fl (80.0-96.0); PLATELET COUNT, AUTOMATED 184 10^3/uL (150-450); RED BLOOD COUNT 4.89 10^6/uL (4.00-5.40); WHITE BLOOD COUNT 6.6 10^3/uL (4.0-10.0)
[2019-09-08 06:20] LABS: BLOOD UREA NITROGEN 19 MG/DL (7-18); CALCIUM LEVEL 8.7 MG/DL (8.8-10.2); CARBON DIOXIDE LEVEL 25 MEQ/L (21-32); CHLORIDE LEVEL 108 MEQ/L (98-107); CREATININE FOR GFR 0.68 MG/DL (0.55-1.30); GLOMERULAR FILTRATION RATE > 60.0 (>45); GLUCOSE, FASTING 131 MG/DL (70-100); POTASSIUM SERUM 3.8 MEQ/L (3.5-5.1); SODIUM LEVEL 141 MEQ/L (136-145)
[2019-09-08] MEDS ORDERED: ASPIRIN 81 MG ENTERIC TAB PO SCH (09:00)
[2019-09-08] MEDS ORDERED: FUROSEMIDE 20 MG TAB PO SCH (09:00)
[2019-09-08] MEDS ORDERED: DULoxetine 30 MG CAP (CYMBALTA) PO SCH (09:00)
[2019-09-08] MEDS ORDERED: LOSARTAN 50MG TABLET PO SCH (09:00)
[2019-09-08] MEDS ORDERED: ATORVASTATIN 20 MG TAB PO SCH (09:00)
[2019-09-08] MEDS ORDERED: PANTOPRAZOLE 40MG TAB (PROTONIX) PO SCH (09:00)
[2019-09-08] MEDS: SUCRALFATE SUSP 1GM/10ML UD PO SCH ×2 (09:18→12:04)
[2019-09-08] MEDS: tiZANidine 4 MG TAB PO SCH (09:18)
[2019-09-08] MEDS: metFORMIN XR 500MG TAB *GLUCOPHAGE XR PO SCH (09:18)
[2019-09-08 09:20] VITALS: BP 177/68
[2019-09-08] MEDS: LEVEMIR (INSULIN DETEMIR) 1 UNITS/0.01ML SC SCH (09:20)
[2019-09-08 13:22] LABS: TROPONIN I 0.27 NG/ML (< 0.10)
--- NOTE | 2019-09-08 13:56 | DS.PDOC ---
Discharge Summary General Date of Admission Sep 07, 2019 at 14:44 Date of Discharge 09/08/19 Discharge Summary PROCEDURES PERFORMED DURING STAY: None ADMITTING DIAGNOSES: 1. symptomatic anemia due to worsening of chronic anemia. DISCHARGE DIAGNOSES: 1. Resolved episode of symptomatic anemia s/p blood transfusion COMPLICATIONS/CHIEF COMPLAINT: Symptomatic Anemia. HOSPITAL COURSE: 69 y/o F with h/o chronic anemia secondary to suspected chronic occult GI bleeding was admitted for symptomatic anemia. Pt was transfused 2 units PRBC. Repeat Hb remained stable. During hospital stay pt had regular bowel movement. There was no clinical concern about active GI bleeding. There was mild elevation of troponin that trended down; EKG- NSR; most probably secondary to demand ischemia. Pt was seen and examined at bedside on day of discharge. Pt stated that she is feeling feeling fine and did not have any complaint. Pt was clinically and vitally stable at the time of discharge. DISCHARGE MEDICATIONS: Please see below. ALLERGIES: Please see below. PHYSICAL EXAMINATION ON DISCHARGE: VITAL SIGNS: Please see below. GENERAL: comfortable HEENT: oral mucosa moist NECK: supple CARDIOVASCULAR EXAMINATION: Regular rate and rhythm RESPIRATORY EXAMINATION: clear to auscultation ABDOMINAL EXAMINATION: soft, non tender, normal bowel sounds EXTREMITIES: no pedal edema NEUROLOGICAL EXAMINATION: no focal deficit PSYCHIATRIC EXAMINATION: mood normal LABORATORY DATA: Please see below. ACTIVITY: [As tolerated]. DISCHARGE PLAN: f/u with PMD for o/o GI referral and o/p ECHO DISPOSITION: home DISCHARGE CONDITION: [Stable]. TIME SPENT ON DISCHARGE: 32 minutes. Vital Signs/I&Os Vital Signs Date Time Temp Pulse Resp B/P (MAP) Pulse Ox O2 Delivery O2 Flow Rate FiO2 09/08/19 09:20 177/68 09/08/19 06:00 98.5 69 18 99 Room Air I&O- Last 24 Hours up to 6 AM 09/08/19 06:00 Intake Total 1670 ml Output Total 450 ml Balance 1220 ml Laboratory Data Labs 24H Laboratory Tests 2 09/07/19 21:02: Bedside Glucose (Misc Panel) 287H 09/08/19 05:35: Nucleated Red Blood Cells % (auto) 0.0, Anion Gap 8, Glomerular Filtration Rate > 60.0, Calcium Level 8.7L, Troponin I 0.27H CBC/BMP Laboratory Tests 09/08/19 00:18 09/08/19 05:35 FSBS Laboratory Tests Test 09/07/19 21:02 Range/Units Bedside Glucose (Misc Panel) 287 80-115 MG/DL Microbiology Microbiology 09/08/19 Stool Occult Blood (GEORGINA) - Final, Complete Discharge Medications Scheduled Aspirin (Aspir 81) 81 Mg Tablet.dr, 81 MG PO DAILY, (Reported) Atorvastatin Calcium (Atorvastatin Calcium) 20 Mg Tab, 20 MG PO DAILY, (Reported) Dapagliflozin Propanediol (Farxiga) 10 Mg Tab, 5 MG PO DAILY, (Reported) Duloxetine Hcl (Duloxetine HCl) 30 Mg Capsule.dr, 30 MG PO DAILY, (Reported) Furosemide (Furosemide) 20 Mg Tablet, 20 MG PO DAILY, (Reported) Insulin Detemir (Levemir) 1 Units/0.01 Ml Susp, 40 UNITS SC BID, (Reported) Insulin Human Lispro (Novolog) 100 U/Ml Inj, 10 UNITS SC AC, (Reported) Levothyroxine Sodium (Synthroid) 25 Mcg Tab, 25 MCG PO DAILY, (Reported) Losartan Potassium (Losartan Potassium) 100 Mg Tab, 100 MG PO DAILY, (Reported) Metformin HCl (Metformin HCl ER) 500 Mg Tab.er.24h, 1,000 MG PO BID, (Reported) Pantoprazole Sodium (Pantoprazole Sodium) 40 Mg Tab, 40 MG PO DAILY, (Reported) Tizanidine HCl (Tizanidine HCl) 4 Mg Cap, 4 MG PO BID, (Reported) AFTERNOON AND EVENING Scheduled PRN Hydrocodone/Acetaminophen (Hydrocodone-Acetamin 5-325 mg) 1 Each Tablet, 1 TAB PO DAILY PRN for PAIN, (Reported) Menthol (Biofreeze) 118 Ml Gel..ml., 1 APLCT TOP for PAIN, (Reported) APPLIES TO RIGHT LEG AND HIP Allergies Coded Allergies: gatifloxacin (Verified Allergy, Mild, 01/08/19) RITCHIE MARIE MD Sep 08, 2019 13:56
== END 2019-09-08 14:51 | disposition home or self-care (01) | DRG 812 ==
LOC: M ED 12:04 → EDBD 12:04 → M ED INP 14:44 → M MSPAV 15:25
PROVIDERS: ADMIT General Practice; ATTEND Internal Medicine
PROC: 30233N1 Transfusion of Nonautologous Red Blood Cells into Peripheral Vein, Percutaneous Approach (ICD-10-PCS; principal; 2019-09-07)
DX: D64.9 Anemia, unspecified (principal); I50.32 Chronic diastolic (congestive) heart failure; I24.8 Other forms of acute ischemic heart disease; E11.9 Type 2 diabetes mellitus without complications; E78.00 Pure hypercholesterolemia, unspecified; I11.0 Hypertensive heart disease with heart failure; E03.9 Hypothyroidism, unspecified; I25.10 Atherosclerotic heart disease of native coronary artery without angina pectoris; I25.2 Old myocardial infarction; K75.81 Nonalcoholic steatohepatitis (NASH); K74.60 Unspecified cirrhosis of liver; E55.9 Vitamin D deficiency, unspecified; E53.8 Deficiency of other specified B group vitamins; M79.7 Fibromyalgia; G89.29 Other chronic pain; Z95.5 Presence of coronary angioplasty implant and graft; Z90.49 Acquired absence of other specified parts of digestive tract; Z98.41 Cataract extraction status, right eye; Z98.42 Cataract extraction status, left eye; Z79.82 Long term (current) use of aspirin; Z79.4 Long term (current) use of insulin; Z79.891 Long term (current) use of opiate analgesic; Z79.899 Other long term (current) drug therapy; Z87.891 Personal history of nicotine dependence

== ENCOUNTER → 2019-09-15 | Outpatient (REF) | payer OTHER ==
[~2019-09-15] MED LIST changes: +ACET1TAB55 PO; +BIOF4GEL4 TOP; +CARV3.12 PO; +CEFU50TA PO; +KLOR10TA76 PO; +METF-838 PO; +POTA10TA17 PO; +TORS20TA2 PO
[2019-09-15 16:04] LABS: PERCENT SATURATION 9.8 % (13.2-45.0)
[2019-09-15 16:05] LABS: HEMATOCRIT 35.7 % (36.0-47.0); HEMOGLOBIN 10.3 g/dl (12.0-15.5); MEAN CORPUSCULAR HEMOGLOBIN 20.4 pg (27.0-33.0); MEAN CORPUSCULAR HGB CONC 28.9 g/dl (32.0-36.5); MEAN CORPUSCULAR VOLUME 70.6 fl (80.0-96.0); PLATELET COUNT, AUTOMATED 199 10^3/uL (150-450); RED BLOOD COUNT 5.06 10^6/uL (4.00-5.40); WHITE BLOOD COUNT 8.8 10^3/uL (4.0-10.0)
== END ==
LOC: M SFHCPLAZ 15:28
PROVIDERS: ATTEND Family Medicine
DX: D50.9 Iron deficiency anemia, unspecified (principal)

== ENCOUNTER 2019-10-18 15:27 | Emergency (ER) | payer OTHER ==
[~2019-10-18] VITALS: Ht 165.1 cm; Wt 84.5 kg
[~2019-10-18 15:27] MED LIST changes: -ACET1TAB55 PO; -CARV3.12 PO; -CEFU50TA PO; -KLOR10TA76 PO; -POTA10TA17 PO; -TORS20TA2 PO
[2019-10-18] MEDS ORDERED: NS 500 ML IV ONE (16:45)
[2019-10-18 16:48] LABS: BASO # 0.1 10^3/uL (0.0-0.2); BASO % 0.9 % (0.0-1.0); EOS # 0.3 10^3/uL (0.0-0.5); EOS % 4.6 % (0.0-3.0); HEMOGLOBIN 9.2 g/dl (12.0-15.5); LYMPH # 1.9 10^3/uL (1.5-5.0); LYMPH % 29.4 % (24.0-44.0); MEAN CORPUSCULAR HEMOGLOBIN 21.7 pg (27.0-33.0); MEAN CORPUSCULAR HGB CONC 30.7 g/dl (32.0-36.5); MEAN CORPUSCULAR VOLUME 70.9 fl (80.0-96.0); MONO # 0.7 10^3/uL (0.0-0.8); MONO % 10.5 % (0.0-5.0); NEUTROPHILS # 3.6 10^3/uL (1.5-8.5); NEUTROPHILS % 54.4 % (36.0-66.0); PLATELET COUNT, AUTOMATED 174 10^3/uL (150-450); RED BLOOD COUNT 4.23 10^6/uL (4.00-5.40); WHITE BLOOD COUNT 6.6 10^3/uL (4.0-10.0)
[2019-10-18 17:12] LABS: ACETAMINOPHEN LEVEL 5.8 UG/ML (10.0-30.0); ALBUMIN 2.5 GM/DL (3.2-5.2); ALT/SGPT 29 U/L (12-78); BILIRUBIN,DIRECT 0.2 MG/DL (0.0-0.2); BLOOD UREA NITROGEN 16 MG/DL (7-18); CALCIUM LEVEL 8.4 MG/DL (8.8-10.2); CARBON DIOXIDE LEVEL 24 MEQ/L (21-32); CHLORIDE LEVEL 102 MEQ/L (98-107); CK-MB VALUE MASS 2.2 NG/ML (<3.6); CPK CREATINE PHOSPHOKINASE 79 U/L (26-192); CREATININE FOR GFR 0.88 MG/DL (0.55-1.30); ETHYL ALCOHOL (ETHANOL) < 0.003 % (0.000-0.010); GLOMERULAR FILTRATION RATE > 60.0 (>45); GLUCOSE, FASTING 484 MG/DL (70-100); MAGNESIUM LEVEL 1.5 MG/DL (1.8-2.4); MB/CK RELATIVE INDEX 2.78 (< OR =4); POTASSIUM SERUM 3.8 MEQ/L (3.5-5.1); SALICYLATE LEVEL < 1.7 MG/DL (5.0-30.0); SODIUM LEVEL 136 MEQ/L (136-145); TOTAL PROTEIN 5.4 GM/DL (6.4-8.2)
[2019-10-18] MEDS ORDERED: MAG SULF 1GM/100ML (MAG RUN) 1 GM in IV 1 EA IV ONE (17:30)
[2019-10-18] MEDS ORDERED: HumuLIN R (REGULAR) INSULIN (NovoLIN R) **100U/ML** PER UNIT SC ONE (18:15)
[2019-10-18 19:05] LABS: AMPHETAMINES LEVEL URINE NEGATIVE (NEGATIVE); BARBITURATES URINE NEGATIVE (NEGATIVE); BENZODIAZEPINES URINE NEGATIVE (NEGATIVE); CANNABINOIDS URINE NEGATIVE (NEGATIVE); COCAINE METABOLITE URINE NEGATIVE (NEGATIVE); METHADONE URINE NEGATIVE (NEGATIVE); OPIATES URINE POSITIVE (NEGATIVE); PHENCYCLIDINE URINE NEGATIVE (NEGATIVE)
[2019-10-18 20:54] VITALS: BP 147/67
--- NOTE | 2019-11-09 16:13 | ECGEPIP ---
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
--- NOTE | 2019-11-18 09:38 | REP ---
CHEST X-RAY: PORTABLE SINGLE VIEW HISTORY: Drug overdose. COMPARISON: Chest x-ray from 09/07/19. FINDINGS: Monitoring electrodes overlie the chest. The lungs are symmetrically aerated and clear. The pleural angles are sharp. The heart is not enlarged. Pulmonary vasculature is not increased. No significant bony abnormality. IMPRESSION: No active disease. MTDD
== END 2019-10-18 20:57 | disposition home or self-care (01) ==
LOC: M ED 15:27
DX: F55.8 Abuse of other non-psychoactive substances (principal); R00.1 Bradycardia, unspecified; M79.7 Fibromyalgia; R53.1 Weakness; E11.9 Type 2 diabetes mellitus without complications; I50.9 Heart failure, unspecified; I11.0 Hypertensive heart disease with heart failure; I25.2 Old myocardial infarction; K21.9 Gastro-esophageal reflux disease without esophagitis; E07.9 Disorder of thyroid, unspecified; K92.2 Gastrointestinal hemorrhage, unspecified; K75.81 Nonalcoholic steatohepatitis (NASH); Z95.5 Presence of coronary angioplasty implant and graft; Z88.1 Allergy status to other antibiotic agents; Z79.899 Other long term (current) drug therapy; Z79.4 Long term (current) use of insulin; Z79.82 Long term (current) use of aspirin
CPT/HCPCS: 71045; 80048; 80076; 80307; 82140; 82550; 82553; 83605; 83735; 84443; 84484; 85025; 93005; 93041; 94760; 96365; 99285; G0480; J3475

== ENCOUNTER 2019-10-21 23:55 | Emergency (ER) | payer OTHER ==
[~2019-10-21] VITALS: Ht 165.1 cm; Wt 84.5 kg
[2019-10-22 00:51] LABS: BASO % 0.6 % (0.0-1.0); EOS # 0.3 10^3/uL (0.0-0.5); EOS % 4.7 % (0.0-3.0); HEMATOCRIT 29.6 % (36.0-47.0); LYMPH # 2.4 10^3/uL (1.5-5.0); LYMPH % 39.1 % (24.0-44.0); MEAN CORPUSCULAR HEMOGLOBIN 21.8 pg (27.0-33.0); MEAN CORPUSCULAR HGB CONC 30.4 g/dl (32.0-36.5); MEAN CORPUSCULAR VOLUME 71.8 fl (80.0-96.0); MONO # 0.7 10^3/uL (0.0-0.8); MONO % 11.4 % (0.0-5.0); NEUTROPHILS # 2.7 10^3/uL (1.5-8.5); NEUTROPHILS % 43.9 % (36.0-66.0); PLATELET COUNT, AUTOMATED 148 10^3/uL (150-450); RED BLOOD COUNT 4.12 10^6/uL (4.00-5.40); WHITE BLOOD COUNT 6.2 10^3/uL (4.0-10.0)
[2019-10-22 01:18] LABS: ALBUMIN 2.4 GM/DL (3.2-5.2); BILIRUBIN,TOTAL 0.6 MG/DL (0.2-1.0); CREATININE FOR GFR 1.15 MG/DL (0.55-1.30); GLOMERULAR FILTRATION RATE 50.1 (>45); POTASSIUM SERUM 3.7 MEQ/L (3.5-5.1); TOTAL PROTEIN 5.5 GM/DL (6.4-8.2)
[2019-10-22] MEDS ORDERED: HumuLIN R (REGULAR) INSULIN (NovoLIN R) **100U/ML** PER UNIT IV ONE ×2 (01:30→03:00)
[2019-10-22] MEDS ORDERED: NS 1,000 ML IV ONE (01:30)
[2019-10-22 04:13] VITALS: BP 110/56
--- NOTE | 2019-10-29 13:38 | REP ---
RIGHT HIP SERIES CLINICAL: Trauma. TECHNIQUE: Frontal view of the pelvis with neutral and frog lateral views of the right hip. FINDINGS: There is no evidence for acute fracture or dislocation. Osseous structures and joint spaces appear relatively intact and age appropriate. Surrounding soft tissues are unremarkable. Vascular calcifications noted. IMPRESSION: No obvious acute fracture or dislocation. MTDD
--- NOTE | 2019-11-10 15:53 | ECGEPIP ---
[facility] - ED Test Date: 2019-10-22 Pat Name: MARIANA SMITH Department: Room: - Gender: Female Choir Singer: JESSICA : 1950 Requested By: KATE KATZ Order Number: [id number] Reading MD: Antonina Hazel Measurements Intervals [place] Rate: 57 P: 42 [place]: 128 QRS: -14 QRSD: 108 T: 112 QT: 472 QTc: 463 Interpretive Statements SINUS BRADYCARDIA POSSIBLE ANTERIOR MYOCARDIAL INFARCTION, OF INDETERMINATE AGE MODERATE T-WAVE ABNORMALITY, CONSIDER LATERAL ISCHEMIA ABNORMAL ECG SEE SCANNED DOWNTIME REPORT
== END 2019-10-22 04:38 | disposition home or self-care (01) ==
LOC: M ED 23:55
DX: E10.65 Type 1 diabetes mellitus with hyperglycemia (principal); E86.0 Dehydration; D64.9 Anemia, unspecified; R29.6 Repeated falls; M79.604 Pain in right leg; G89.29 Other chronic pain; K21.9 Gastro-esophageal reflux disease without esophagitis; M79.7 Fibromyalgia; I10 Essential (primary) hypertension; Z88.1 Allergy status to other antibiotic agents; Z79.899 Other long term (current) drug therapy; Z79.82 Long term (current) use of aspirin; Z79.84 Long term (current) use of oral hypoglycemic drugs

== ENCOUNTER → 2019-11-04 | Outpatient (CLI) | payer OTHER ==
[~2019-11-04] MED LIST changes: +ACET1TAB55 PO; +CARV3.12 PO; +CEFU50TA PO; +KLOR10TA76 PO; +POTA10TA17 PO; +TORS20TA2 PO
== END ==
LOC: M PLALAB 14:14
PROVIDERS: ATTEND Family Medicine
DX: R60.9 Edema, unspecified (principal)
CPT/HCPCS: 36415; 80048; 83880; G0463

== ENCOUNTER → 2019-11-06 | Outpatient (CLI) | payer OTHER, MEDICAID ==
--- NOTE | 2019-11-23 17:07 | REP ---
RIGHT FOOT SERIES: CLINICAL: Pain with recent trauma. TECHNIQUE: AP, lateral, bilateral oblique views of the right foot. FINDINGS: Age related osteopenia and generalized degenerative changes are appreciated. Soft tissue swelling is suggested. No acute fracture or dislocation identified. No subcutaneous emphysema or foreign body. IMPRESSION: Soft tissue swelling. No acute fracture. Underlying age related degenerative changes. MTDD
== END ==
LOC: M WUC 14:18
PROVIDERS: ATTEND Physician Assistant
DX: S90.31XA Contusion of right foot, initial encounter (principal); X58.XXXA Exposure to other specified factors, initial encounter; Y92.89 Other specified places as the place of occurrence of the external cause; Y93.9 Activity, unspecified; Y99.9 Unspecified external cause status

== ENCOUNTER 2019-11-09 14:40 | Emergency (ER) | payer MEDICAID, OTHER ==
[~2019-11-09] VITALS: Ht 165.1 cm; Wt 82.7 kg
[~2019-11-09 14:40] MED LIST changes: -ACET1TAB55 PO; -CARV3.12 PO; -CEFU50TA PO; -KLOR10TA76 PO; -POTA10TA17 PO; -TORS20TA2 PO
[2019-11-09] MEDS ORDERED: NS 1,000 ML IV ONE (15:00)
[2019-11-09 16:30] LABS: VENOUS BASE EXCESS -4.1 (-2.0-2.0); VENOUS O2 SATURATION 86.4 % (60.0-80.0); VENOUS PARTIAL PRESSURE CO2 38.8 mmHg (38.0-50.0); VENOUS PARTIAL PRESSURE O2 59.5 mmHg (30.0-50.0); VENOUS PH 7.352 UNITS (7.330-7.430); VENOUS STANDARD HCO3 20.8 MEQ/L; VENOUS TOTAL CO2 22.2 MEQ/L (24.0-28.0)
[2019-11-09 16:35] LABS: BASO # 0.1 10^3/uL (0.0-0.2); BASO % 1.2 % (0.0-1.0); EOS # 0.4 10^3/uL (0.0-0.5); EOS % 5.5 % (0.0-3.0); HEMATOCRIT 34.9 % (36.0-47.0); HEMOGLOBIN 10.7 g/dl (12.0-15.5); LYMPH # 2.3 10^3/uL (1.5-5.0); LYMPH % 32.4 % (24.0-44.0); MEAN CORPUSCULAR HEMOGLOBIN 21.8 pg (27.0-33.0); MEAN CORPUSCULAR HGB CONC 30.7 g/dl (32.0-36.5); MEAN CORPUSCULAR VOLUME 71.1 fl (80.0-96.0); MONO # 0.8 10^3/uL (0.0-0.8); MONO % 12.1 % (0.0-5.0); NEUTROPHILS # 3.4 10^3/uL (1.5-8.5); NEUTROPHILS % 48.5 % (36.0-66.0); PLATELET COUNT, AUTOMATED 193 10^3/uL (150-450); RED BLOOD COUNT 4.91 10^6/uL (4.00-5.40); WHITE BLOOD COUNT 6.9 10^3/uL (4.0-10.0)
[2019-11-09] MEDS ORDERED: HumuLIN R (REGULAR) INSULIN (NovoLIN R) **100U/ML** PER UNIT IV ONE ×3 (16:45→19:30)
[2019-11-09 17:02] LABS: ALBUMIN 3.1 GM/DL (3.2-5.2); ALT/SGPT 33 U/L (12-78); BILIRUBIN,DIRECT 0.3 MG/DL (0.0-0.2); BILIRUBIN,TOTAL 1.5 MG/DL (0.2-1.0); BLOOD UREA NITROGEN 25 MG/DL (7-18); CALCIUM LEVEL 9.3 MG/DL (8.8-10.2); CARBON DIOXIDE LEVEL 22 MEQ/L (21-32); CHLORIDE LEVEL 100 MEQ/L (98-107); CREATININE FOR GFR 0.97 MG/DL (0.55-1.30); GLOMERULAR FILTRATION RATE > 60.0 (>45); GLUCOSE, FASTING 543 MG/DL (70-100); LIPASE 283 U/L (73-393); POTASSIUM SERUM 4.2 MEQ/L (3.5-5.1); SODIUM LEVEL 135 MEQ/L (136-145)
--- NOTE | 2019-11-09 17:08 | REPVR ---
PROCEDURE INFORMATION: Exam: US Duplex Lower Extremity Veins, Bilateral Exam date and time: 11/09/2019 4:03 PM Age: 69 years old Clinical indication: Edema, localized; Lower extremity, bilateral; Additional info: Swelling TECHNIQUE: Imaging protocol: Real-time duplex ultrasound of the extremities with 2-D amaya scale, color Doppler flow and spectral waveform analysis with image documentation. Complete exam focused on the bilateral lower extremity veins. COMPARISON: US Duplex, Ext,LOWER veins,unilat 02/26/2019 2:29 PM FINDINGS: Right deep veins: Right common femoral vein, femoro saphenous junction and proximal femoral vein show normal compression and blood flow. Normal response to augmentation maneuvers. The mid and distal femoral vein did not fully compress . The technologist indicated due to the size of the patient's leg it was difficult to compress fully. Blood flow appears normal. Normal compression of the popliteal vein with normal blood flow demonstrated. Right superficial veins: Saphenofemoral junction is patent without thrombus. Left deep veins: Unremarkable. The common femoral, femoral, proximal profunda femoral and popliteal veins are patent without thrombus. Normal Doppler waveforms. Normal compressibility and/or augmentation response. Left superficial veins: Saphenofemoral junction is patent without thrombus. Soft tissues: Unremarkable. IMPRESSION: 1. The right mid and distal femoral vein do not fully compress but blood flow was demonstrated on color Doppler examination. The lack of compression was felt to be related to technical factors including patient body habitus. Chronic veno-occlusive disease is another consideration. Chronic nonocclusive thrombus cannot be excluded on the basis of this examination. 2. Normal venous Doppler of the left leg. Electronically signed by: Sherin Olivera On 11/09/2019 17:08:03 PM
[2019-11-09] MEDS ORDERED: NORCO, ANEXSIA 5/325MG TABLET (HYDROcodone/ACETAMINOPHEN) PO ONE (18:45)
[2019-11-09 19:54] VITALS: BP 179/83
== END 2019-11-09 20:54 | disposition home or self-care (01) ==
LOC: M ED 14:40
DX: I11.0 Hypertensive heart disease with heart failure (principal); E11.65 Type 2 diabetes mellitus with hyperglycemia; Z91.19 Patient's noncompliance with other medical treatment and regimen; I50.9 Heart failure, unspecified; I25.10 Atherosclerotic heart disease of native coronary artery without angina pectoris; I25.2 Old myocardial infarction; E78.5 Hyperlipidemia, unspecified; E07.9 Disorder of thyroid, unspecified; R60.9 Edema, unspecified; Z79.4 Long term (current) use of insulin; Z79.899 Other long term (current) drug therapy; Z79.82 Long term (current) use of aspirin; Z79.890 Hormone replacement therapy; Z88.1 Allergy status to other antibiotic agents; Z95.5 Presence of coronary angioplasty implant and graft; Z87.891 Personal history of nicotine dependence; Z98.890 Other specified postprocedural states; Z83.3 Family history of diabetes mellitus; Z82.49 Family history of ischemic heart disease and other diseases of the circulatory system; Z87.19 Personal history of other diseases of the digestive system

== ENCOUNTER → 2019-11-09 | Outpatient (CLI) | payer OTHER, MEDICAID ==
[2019-11-09 14:00] LABS: CALCIUM LEVEL 9.6 MG/DL (8.8-10.2); CREATININE FOR GFR 1.12 MG/DL (0.55-1.30); GLOMERULAR FILTRATION RATE 51.7 (>45); POTASSIUM SERUM 4.6 MEQ/L (3.5-5.1)
== END ==
LOC: M PLALAB 10:57
PROVIDERS: ATTEND Family Medicine
DX: R60.9 Edema, unspecified (principal)

== ENCOUNTER 2019-11-11 14:00 | Inpatient (IN) | payer OTHER ==
[~2019-11-11] VITALS: Ht 165.1 cm; Wt 84.6 kg
[2019-11-11] MEDS ORDERED: CARV3.12 PO (14:14)
[2019-11-11] MEDS ORDERED: HumuLIN R (REGULAR) INSULIN (NovoLIN R) **100U/ML** PER UNIT IV ONE ×2 (15:00→18:15)
[2019-11-11 15:44] LABS: VENOUS BASE EXCESS -8.1 (-2.0-2.0); VENOUS HCO3 16.8 MEQ/L (23.0-27.0); VENOUS O2 SATURATION 61.8 % (60.0-80.0); VENOUS PARTIAL PRESSURE CO2 32.2 mmHg (38.0-50.0); VENOUS PARTIAL PRESSURE O2 37.4 mmHg (30.0-50.0); VENOUS PH 7.335 UNITS (7.330-7.430); VENOUS STANDARD HCO3 17.3 MEQ/L; VENOUS TOTAL CO2 17.8 MEQ/L (24.0-28.0)
[2019-11-11 15:56] LABS: BASO # 0.1 10^3/uL (0.0-0.2); BASO % 1.2 % (0.0-1.0); EOS # 0.4 10^3/uL (0.0-0.5); EOS % 6.5 % (0.0-3.0); HEMATOCRIT 31.3 % (36.0-47.0); HEMOGLOBIN 9.2 g/dl (12.0-15.5); LYMPH # 2.9 10^3/uL (1.5-5.0); LYMPH % 42.4 % (24.0-44.0); MEAN CORPUSCULAR HEMOGLOBIN 21.5 pg (27.0-33.0); MEAN CORPUSCULAR HGB CONC 29.4 g/dl (32.0-36.5); MEAN CORPUSCULAR VOLUME 73.1 fl (80.0-96.0); MONO # 0.8 10^3/uL (0.0-0.8); MONO % 11.3 % (0.0-5.0); NEUTROPHILS # 2.6 10^3/uL (1.5-8.5); NEUTROPHILS % 38.5 % (36.0-66.0); PLATELET COUNT, AUTOMATED 173 10^3/uL (150-450); RED BLOOD COUNT 4.28 10^6/uL (4.00-5.40); WHITE BLOOD COUNT 6.8 10^3/uL (4.0-10.0)
--- NOTE | 2019-11-11 15:57 | REPVR ---
PROCEDURE INFORMATION: Exam: XR Chest, 1 View Exam date and time: 11/11/2019 3:44 PM Age: 69 years old Clinical indication: Other: Pain and swelling; Additional info: Dka TECHNIQUE: Imaging protocol: XR of the chest Views: 1 view. COMPARISON: GA PORTABLE CHEST X-RAY 10/18/2019 4:09 PM FINDINGS: Lungs: Unremarkable. No consolidation. Pleural space: Unremarkable. No pleural effusion. No pneumothorax. Heart/Mediastinum: Unremarkable. No cardiomegaly. Bones/joints: Unremarkable. IMPRESSION: No acute findings. Electronically signed by: Hollis Marie On 11/11/2019 15:56:37 PM
--- NOTE | 2019-11-11 16:13 | REPVR ---
PROCEDURE INFORMATION: Exam: XR Right Foot Complete Exam date and time: 11/11/2019 3:44 PM Age: 69 years old Clinical indication: Pain; Foot; Right; Additional info: Dka TECHNIQUE: Imaging protocol: XR Right foot. Views: 3 or more views. COMPARISON: CR FOOT COMPLETE RIGHT 11/06/2019 2:30 PM images only, there is no report available per the technologist. FINDINGS: Bones/joints: There is a bunion and hallux valgus deformity unchanged. There is osteopenia. Is calcaneal plantar spur. No fracture. Soft tissues: Normal. Vasculature: There is stable vascular calcifications. IMPRESSION: No appreciable change from the old film of which there is no report to correlate . Electronically signed by: Hollis Marie On 11/11/2019 16:12:51 PM
[2019-11-11 16:18] LABS: HEMOGLOBIN A1c 13.7 %
[2019-11-11 16:19] LABS: ACETONE/KETONE 1.97 MG/DL (<2.81); ALBUMIN 2.8 GM/DL (3.2-5.2); BILIRUBIN,DIRECT 0.3 MG/DL (0.0-0.2); BILIRUBIN,TOTAL 0.7 MG/DL (0.2-1.0); CALCIUM LEVEL 8.5 MG/DL (8.8-10.2); CREATININE FOR GFR 1.34 MG/DL (0.55-1.30); POTASSIUM SERUM 3.2 MEQ/L (3.5-5.1); TOTAL PROTEIN 6.5 GM/DL (6.4-8.2)
--- NOTE | 2019-11-11 16:30 | REPVR ---
PROCEDURE INFORMATION: Exam: US Duplex Right Lower Extremity Veins, Limited Exam date and time: 11/11/2019 4:23 PM Age: 69 years old Clinical indication: Pain; Leg, lower; Right; Additional info: Edema TECHNIQUE: Imaging protocol: Real-time Duplex ultrasound of the Right Lower Extremity with 2-D amaya scale, color Doppler flow and spectral waveform analysis with image documentation. Limited exam was focused on the right lower extremity veins. COMPARISON: US Duplex, Ext LOWER veins, bilat 11/09/2019 3:49 PM FINDINGS: Right deep veins: Unremarkable. The common femoral, femoral, proximal profunda femoral and popliteal veins are patent without thrombus. Normal Doppler waveforms. Normal compressibility and/or augmentation response. Right superficial veins: Unremarkable. Saphenofemoral junction is patent without thrombus. Soft tissues: There is a 36 x 6 x 22 mm popliteal cyst. There is diffuse soft tissue edema in the subcutaneous tissues. IMPRESSION: No evidence of deep vein thrombosis. Electronically signed by: Hollis Marie On 11/11/2019 16:29:44 PM
[2019-11-11] MEDS: NS 1,000 ML IV SCH ×2 (16:36→19:00)
[2019-11-11 17:22] LABS: CK-MB VALUE MASS 2.5 NG/ML (<3.6); MB/CK RELATIVE INDEX 2.5 (< OR =4); TROPONIN I 0.3 NG/ML (< 0.10)
[2019-11-11] MEDS ORDERED: NAPROXEN 250 MG TAB PO ONE (17:45)
[2019-11-11] MEDS ORDERED: FURO20TA2 PO (18:08)
[2019-11-11] MEDS ORDERED: FUROSEMIDE 40MG/4ML VIAL (J1940) IV ONE (21:00)
[2019-11-11] MEDS ORDERED: GLUCAGON INJ 1MG VIAL SC PRN (21:00)
[2019-11-11] MEDS ORDERED: GLUCOSE 4GM CHEW TABLET PO PRN (21:00)
[2019-11-11] MEDS: HumaLOG INSULIN (NovoLOG) PER UNIT SC SCH (21:00)
[2019-11-11] MEDS: LEVEMIR (INSULIN DETEMIR) 1 UNITS/0.01ML SC SCH (21:00)
[2019-11-11] MEDS ORDERED: DEXTROSE 50% 50 ML SYRINGE IV PRN (21:00)
[2019-11-11 21:21] LABS: CK-MB VALUE MASS 2.7 NG/ML (<3.6); MB/CK RELATIVE INDEX 2.62 (< OR =4); TROPONIN I 0.29 NG/ML (< 0.10)
[2019-11-11] MEDS ORDERED: POTASSIUM CHLORIDE 10 MEQ SR TABLET PO ONE (21:30)
[2019-11-11] MEDS: tiZANidine 4 MG TAB PO SCH (22:38)
[2019-11-11] MEDS: CARVedilol 6.25 MG TAB PO SCH (22:40)
[2019-11-11] MEDS: HEPARIN SOD (PORCINE) 5000UNITS/ML 1ML VIAL/SYRINGE SQ SCH (22:42)
--- NOTE | 2019-11-11 23:57 | HPEPDOC ---
[facility] Medical History & Physical Date of Admission Nov 11, 2019 Date of Service: Nov 11, 2019 Attending Physician: DUGLAS LYONS MD History and Physical CHIEF COMPLAINT: Hyperglycemia noted on home glucometer to >600 HISTORY OF PRESENT ILLNESS: 69 yo W with uncontrolled IDDM2 c/b peripheral neuropathy, HTN, CAD s/p PCI, HFpEF who presented from home after being recommended by her home health service to present to the ED after noting a blood glucose of reading over 600. She reports that she has been having high glucose readings for a few days without any noted polyuria, polydipsia, fever, chills, chest pain, palpitations, abdominal pain, nausea, emesis, diarrhea or change in her eating habits. She reports 100% compliance with her medications. She also reports acute on chronic R>L worsening of her LE edema and also recently dropped a package of frozen meat on her right foot. She does report that her legs are heavy, the right is actually quite tender, warmer than the left nad has some mild erythema. In the ED, she was hemodynamically stable and hyperglycemic to 485 for which she was given 16u of short acting insulin with improvement to low 300s. WBC was 6.8, hgb 9.2, platelets 173, Na 133, K 3.2, BUN 24, Cr 1.32, AST 80, ALT 45, troponin 0.3 that downtrended on repeat to 0.29, proBNP 1924, UA with glucosuria while R foot XR showed no fracture and bilateral venous Doppler LE US were negative for DVTs and showed edema. In addition to the insulin, she was also given fluids despite her severe LE edema and was hypertensive to 170s so I stopped those and gave her some lasix instead. She is now being admitted for glycemic control, potential cellulitis and CHF exacerbation. Past Medical History Type 2 DM HFpEF CAD s/p NSTEMI 07/08/17 with 1 ANNABEL TO LAD Hyperlipidemia Vitamin B12 deficiency-recent level high PMH of Vitamin D deficiency Hypothyroidism Hypertension Right humerus fracture 05/2017 Tendonitis/carpal tunnel/neuropathy in both hands Fibromyalgia Abdominal hernia Cirrhosis/ARNOLD seen on CT and ABD U/S 06/2017 -referred to / [facility] Colonoscopy and endoscopy-07/2017 Link's cyst left leg with thigh pain Chronic right thigh/leg pain Chronic anemia Past Surgical History: Remote tonsillectomy Remote salivary gland removal 1981 Cholecystectomy 1984 Hysterectomy for endometrial polyps Fistula repair in perineal area 1992 EGD(NML), colonoscopy(NB IH, NML) Dr. Mustafa EGD (gastric erosions, mild gastrophy) Colonoscopy(diverticulosis, otherwise normal) Dr. Zambrano 07/2017 Drug eluting stent to LAD at [facility] 07/08/2017 Cataract surgery-both eyes 2016 Family History: Father-bleeding ulcer Mother type 2 DM, kidney failure, acromegaly Brother has MS, DM2 Social History: Former smoker No alcohol No illicit drug use Review of Systems Constitutional: Denies: Chills, Fever Pulmonary: Denies: Dyspnea, Cough Cardiovascular: Denies chest pain, palpitations, orthopnea, SOB. However does report worsening peripheral edema especially the RLE Gastrointestinal: Denies: Nausea, Vomiting, Abdominal Pain, Diarrhea, Constipation, Melena, Hematochezia Genitourinary: Denies: Dysuria, Frequency, Incontinence, Retention Musculoskeletal: has chronic right leg allodynia Endocrine: No recent polyuria, polydipsia, heat or cold intolerance Physical Examination General: NAD, morbidly obese, breathing comfortably on room air Eyes: PERRLA, EOMI, anicteric ENT: Atraumatic, Mucous membr. moist/pink Neck: Supple, thick Chest: Clear to auscultation, Normal air movement, no crackles, rhonchi or wheezing Heart: Rate Normal, Normal S1, Normal S2, no noted murmur Abdomen: Obese, soft, normoactive sounds, NTND Neuro: Tender allodynia in right lower extremity, otherwise has LE distal sensation deficits in feet per baseline, strength appears to be 5/5 in al 4 extremities, CN2-12 intact Psych: Oriented x 3 Labs and Imaging: as reviewed above Assessment: 69 yo W with uncontrolled IDDM2 c/b peripheral neuropathy, HTN, CAD s/p PCI, HFpEF who presented from home after being recommended by her home health service to present to the ED for asymptomatic hyperglycemia and found to have non-gap hyperglycemia, acute HFpEF exacerbation, Type 2 NSTEMI with elevated troponin, ASAF and potential RLE cellulitis. HFpEF exacerbation: -hold home lasix, and give lasix [address] her on 40 IV Q8H for goal net negative 2L/24h -fluid restriction to 2L/24h -strict I/Os -daily weights -elevate LE while supine -TEDs if she can tolerate them -Hold losartan in the setting of the ongoing ASAF. Will plan to continue coreg but may need to be held for hemodynamic room to diurese Type 2 NSTEMI with elevated troponin -EKG with noted recent lateral TWI and sub millimeter ST depressions, stable, will monitor telemetry -Troponin downtrended -telemetry -Likely 2/2 to CHF exacerbation -No current concern for active ACS at this time Hyperglycemia with uncontrolled IDDM: -increase levemir 40u BID to 50u BID -SSI -consistent carb diet, 2g sodium with 2L/24h fluid restriction -FSBG AC/HS -Hypoglycemia protocol -Would continue her SGLT2 inhibitor if it can be brought in from home -holding metformin ASAF: 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 -diuresis with lasix and monitor daily BMP and electrolytes -holding ARB Probable RLE cellulitis: -will place on PO keflex -MRSA PCR -elevate RLE above the level of the heart while supine -diuresis as above CAD: -continue ASA, PRN SLN Hyperlipidemia: -continue lipitor Chronic Hypothyroidism -Cont home levothyroxine DVT ppx: heparin SC BID Dispo: medsurg, remote tele, inpatient, PT/OT Vital Signs Vital Signs Date Time Temp Pulse Resp B/P (MAP) Pulse Ox O2 Delivery O2 Flow Rate FiO2 11/11/19 22:40 69 177/74 11/11/19 20:46 100 11/11/19 19:16 97.4 18 11/11/19 18:40 Room Air Laboratory Data Labs 24H Laboratory Tests 2 11/11/19 15:34: Immature Granulocyte % (Auto) 0.1, Neutrophils (%) (Auto) 38.5, Lymphocytes (%) (Auto) 42.4, Monocytes (%) (Auto) 11.3H, Eosinophils (%) (Auto) 6.5H, Basophils (%) (Auto) 1.2H, Neutrophils # (Auto) 2.6, Lymphocytes # (Auto) 2.9, Monocytes # (Auto) 0.8, Eosinophils # (Auto) 0.4, Basophils # (Auto) 0.1, Nucleated Red Blood Cells % (auto) 0.0, Blood Gas Bicarbonate Standard 17.3, Venous Blood pH 7.335, Venous Blood Partial Pressure CO2 32.2L, Venous Blood Partial Pressure O2 37.4, Venous Blood Total Carbon Dioxide 17.8L, Venous Blood HCO3 16.8L, Venous Blood Oxygen Saturation 61.8, Venous Blood Base Excess -8.1L, Anion Gap 12, Glomerular Filtration Rate 42.0L, Estimated Mean Plasma Glucose 346H, Hemoglobin A1c 13.7, Osmolality 314H, Calcium Level 8.5L, Total Bilirubin 0.7#, Direct Bilirubin 0.3H, Aspartate Amino Transf (AST/SGOT) 80H, Alanine Aminotransferase (ALT/SGPT) 45, Alkaline Phosphatase 164H, Total Creatine Kinase 100, Creatine Kinase MB 2.5, Creatine Kinase MB Relative Index 2.50, Troponin I 0.30H, LV-Nau-H-Type Natriuretic Peptide 1924H, Total Protein 6.5, Albumin 2.8L, Albumin/Globulin Ratio 0.8L, Lipase 268, B-Hydroxybutyrate 1.97 11/11/19 16:13: Bedside Glucose (Misc Panel) 450H 11/11/19 16:37: Urine Color STRAW, Urine Appearance CLEAR, Urine pH 5.0, Urine Specific [place] 1.017, Urine Protein NEGATIVE, Urine Glucose (UA) 3+H, Urine Ketones NEGATIVE, Urine Blood NEGATIVE, Urine Nitrite NEGATIVE, Urine Bilirubin NEGATIVE, Urine Urobilinogen 0.2, Urine Leukocyte Esterase NEGATIVE, Urine WBC (Auto) 1, Urine RBC (Auto) 1, Urine Hyaline Casts (Auto) 0, Urine Bacteria (Auto) NEGATIVE, Urine Squamous Epithelial Cells 0, Urine Sperm (Auto) 11/11/19 17:46: Bedside Glucose (Misc Panel) 374H 11/11/19 18:36: Bedside Glucose (Misc Panel) 312H 11/11/19 20:43: Total Creatine Kinase 103, Creatine Kinase MB 2.7, Creatine Kinase MB Relative Index 2.62, Troponin I 0.29H 11/11/19 21:45: Bedside Glucose (Misc Panel) 188H CBC/BMP Laboratory Tests 11/11/19 15:34 Microbiology Microbiology 11/11/19 Blood Culture, Received Pending 11/11/19 Blood Culture, Received Pending Home Medications Scheduled Aspirin (Aspir 81) 81 Mg Tablet.dr, 81 MG PO DAILY Atorvastatin Calcium (Atorvastatin Calcium) 20 Mg Tab, 20 MG PO DAILY Carvedilol (Carvedilol) 3.125 Mg Tablet, 6.25 MG PO BID Dapagliflozin Propanediol (Farxiga) 10 Mg Tab, 5 MG PO DAILY Duloxetine Hcl (Duloxetine HCl) 30 Mg Capsule.dr, 30 MG PO DAILY Furosemide (Furosemide) 20 Mg Tablet, 20 MG PO DAILY TAKES AT NOON Furosemide (Furosemide) 20 Mg Tablet, 40 MG PO QAM Insulin Detemir (Levemir) 1 Units/0.01 Ml Susp, 40 UNITS SC BID Insulin Human Lispro (Novolog) 100 U/Ml Inj, 10 UNITS SC AC Levothyroxine Sodium (Synthroid) 25 Mcg Tab, 25 MCG PO DAILY Losartan Potassium (Losartan Potassium) 100 Mg Tab, 100 MG PO DAILY Metformin HCl (Metformin HCl ER) 500 Mg Tab.er.24h, 1,000 MG PO BID Pantoprazole Sodium (Pantoprazole Sodium) 40 Mg Tab, 40 MG PO DAILY Tizanidine HCl (Tizanidine HCl) 4 Mg Cap, 4 MG PO BID AFTERNOON AND EVENING Scheduled PRN Menthol (Biofreeze) 118 Ml Gel..ml., 1 APLCT TOP for PAIN APPLIES TO RIGHT LEG AND HIP Allergies Coded Allergies: gatifloxacin (Verified Allergy, Mild, 01/08/19) A-FIB/CHADSVASC A-FIB History Current/History of A-Fib/PAF?: No Age/Risk Factor Scoring CHADSVASC: CHADSVASC Response (Comments) Value Age Risk Factor Age 65-74 years old 1 Gender Risk Factor Female 1 Hx of CHF Yes 1 Hx of HTN Yes 1 Hx of Stroke/TIA/or VTE No 0 Hx of Diabetes Yes 1 Hx of Vascular Disease Yes 1 Total 6 Treatment Treatment ordered: NONE Reason Anticoagulant not given: Not indicated/[id number] DUGLAS LYONS MD Nov 11, 2019 23:54
[2019-11-12] MEDS: CEPHALEXIN 250MG CAPSULE PO SCH ×4 (00:28→18:34)
[2019-11-12 03:50] VITALS: BP 102/46
[2019-11-12 06:00] VITALS: BP 130/76
[2019-11-12] MEDS: LEVOTHYROXINE 25MCG TABLET (0.025MG) PO SCH (06:52)
[2019-11-12 07:06] LABS: HEMATOCRIT 32.9 % (36.0-47.0); HEMOGLOBIN 9.6 g/dl (12.0-15.5); MEAN CORPUSCULAR HEMOGLOBIN 21.3 pg (27.0-33.0); MEAN CORPUSCULAR HGB CONC 29.2 g/dl (32.0-36.5); MEAN CORPUSCULAR VOLUME 73.1 fl (80.0-96.0); PLATELET COUNT, AUTOMATED 152 10^3/uL (150-450); WHITE BLOOD COUNT 4.6 10^3/uL (4.0-10.0)
[2019-11-12 07:32] LABS: ALBUMIN 2.6 GM/DL (3.2-5.2); BILIRUBIN,TOTAL 0.6 MG/DL (0.2-1.0); CALCIUM LEVEL 8.2 MG/DL (8.8-10.2); CREATININE FOR GFR 1.05 MG/DL (0.55-1.30); GLOMERULAR FILTRATION RATE 55.7 (>45); MAGNESIUM LEVEL 1.5 MG/DL (1.8-2.4); POTASSIUM SERUM 3.6 MEQ/L (3.5-5.1); TOTAL PROTEIN 5.9 GM/DL (6.4-8.2)
[2019-11-12] MEDS: HEPARIN SOD (PORCINE) 5000UNITS/ML 1ML VIAL/SYRINGE SQ SCH ×2 (08:12→21:51)
[2019-11-12] MEDS: FUROSEMIDE 40MG/4ML VIAL (J1940) IV SCH ×2 (08:13→15:33)
[2019-11-12] MEDS: LEVEMIR (INSULIN DETEMIR) 1 UNITS/0.01ML SC SCH ×2 (08:14→21:00)
[2019-11-12] MEDS ORDERED: POTASSIUM CHLORIDE 10 MEQ SR TABLET PO ONE (08:15)
[2019-11-12] MEDS: HumaLOG INSULIN (NovoLOG) PER UNIT SC SCH ×4 (08:15→21:00)
[2019-11-12] MEDS: DULoxetine 30 MG CAP (CYMBALTA) PO SCH (08:17)
[2019-11-12] MEDS: ASPIRIN 81 MG ENTERIC TAB PO SCH (08:17)
[2019-11-12] MEDS: CARVedilol 6.25 MG TAB PO SCH ×2 (08:20→21:52)
[2019-11-12] MEDS: PANTOPRAZOLE 40MG TAB (PROTONIX) PO SCH (08:21)
[2019-11-12] MEDS: ATORVASTATIN 20 MG TAB PO SCH (08:22)
[2019-11-12] MEDS ORDERED: MAG SULF 1GM/100ML (MAG RUN) 1 GM in IV 1 EA IV ONE (08:30)
[2019-11-12] MEDS: LOSARTAN 50MG TABLET PO SCH (11:46)
[2019-11-12] MEDS: tiZANidine 4 MG TAB PO SCH ×2 (13:28→21:51)
[2019-11-12 14:00] VITALS: BP 88/42
[2019-11-12 16:23] LABS: BLOOD UREA NITROGEN 23 MG/DL (7-18); CALCIUM LEVEL 7.8 MG/DL (8.8-10.2); CARBON DIOXIDE LEVEL 24 MEQ/L (21-32); CHLORIDE LEVEL 111 MEQ/L (98-107); GLOMERULAR FILTRATION RATE > 60.0 (>45); GLUCOSE, FASTING 105 MG/DL (70-100); MAGNESIUM LEVEL 1.7 MG/DL (1.8-2.4); POTASSIUM SERUM 3.2 MEQ/L (3.5-5.1); SODIUM LEVEL 143 MEQ/L (136-145)
--- NOTE | 2019-11-12 20:37 | REPVR ---
PROCEDURE INFORMATION: Exam: MR Cervical Spine Without Contrast Exam date and time: 11/12/2019 8:17 PM Age: 69 years old Clinical indication: Numbness; Additional info: Left hand numbness TECHNIQUE: Imaging protocol: Multiplanar magnetic resonance images of the cervical spine without contrast. COMPARISON: CT Spine,cervical w/o contrast 02/26/2019 11:13 AM FINDINGS: Vertebrae: Reversal of normal cervical lordosis in the mid and lower cervical spine. Spinal cord: Normal signal. No cord compression. C2-C3: No significant disc disease. No significant spinal stenosis. C3-C4: Diffusely bulging annulus at C3-C4 effaces the ventral subarachnoid space without cord impingement. There is moderate bilateral foraminal stenosis secondary to uncinate joint hypertrophic changes. C4-C5: Bulging annulus and central disc protrusion at C4-C5 with mild mid cord impingement. Mild bilateral foraminal stenosis secondary to uncinate joint hypertrophic changes. C5-C6: Broad posterior hard disc protrusion at C5-C6 effaces the ventral subarachnoid space with mild to moderate cord impingement. Severe bilateral foraminal stenosis secondary to uncinate joint hypertrophic changes. C6-C7: Bulging annulus with a posterior disc protrusion at C6-C7 effacing the ventral subarachnoid space with the disc abutting but not compressing the cervical cord. There is moderate to severe bilateral foraminal stenosis. C7-T1: Unremarkable. Other bones/joints: Mild marrow space edema flanking the joint space at C5-C6 likely degenerative. Vertebral arteries: Expected flow voids in the vertebral arteries. Soft tissues: Unremarkable. IMPRESSION: Degenerative spondylosis as described above. Multilevel foraminal stenoses. Bulging annuli/posterior disc protrusions from C4-C5 through C6-C7 with mild cord impingement at C4-C5, and mild to moderate cord impingement at C5-C6. Electronically signed by: Avni Ramires On 11/12/2019 20:37:28 PM
[2019-11-12 22:00] VITALS: BP 143/61
[2019-11-13] MEDS: FUROSEMIDE 40MG/4ML VIAL (J1940) IV SCH ×4 (00:13→23:43)
[2019-11-13] MEDS: CEPHALEXIN 250MG CAPSULE PO SCH ×3 (00:13→11:17)
[2019-11-13] MEDS: LEVOTHYROXINE 25MCG TABLET (0.025MG) PO SCH (05:34)
[2019-11-13 06:00] VITALS: BP 125/49
[2019-11-13] MEDS: HumaLOG INSULIN (NovoLOG) PER UNIT SC SCH ×3 (08:54→17:45)
[2019-11-13] MEDS: LEVEMIR (INSULIN DETEMIR) 1 UNITS/0.01ML SC SCH ×2 (08:54→21:29)
[2019-11-13] MEDS: LOSARTAN 50MG TABLET PO SCH (08:55)
[2019-11-13] MEDS: PANTOPRAZOLE 40MG TAB (PROTONIX) PO SCH (08:56)
[2019-11-13] MEDS: ASPIRIN 81 MG ENTERIC TAB PO SCH (08:57)
[2019-11-13] MEDS: DULoxetine 30 MG CAP (CYMBALTA) PO SCH (08:57)
[2019-11-13] MEDS: ATORVASTATIN 20 MG TAB PO SCH (08:57)
[2019-11-13] MEDS: HEPARIN SOD (PORCINE) 5000UNITS/ML 1ML VIAL/SYRINGE SQ SCH ×2 (08:57→21:23)
[2019-11-13] MEDS: CARVedilol 6.25 MG TAB PO SCH ×2 (08:57→21:29)
[2019-11-13] MEDS ORDERED: POTASSIUM CHLORIDE 10 MEQ SR TABLET PO ONE (09:00)
[2019-11-13] MEDS: ACETAMINOPHEN TAB 650MG DOSE (2X325MG) PO PRN (09:04)
[2019-11-13 09:13] LABS: HEMATOCRIT 32.7 % (36.0-47.0); HEMOGLOBIN 9.4 g/dl (12.0-15.5); MEAN CORPUSCULAR HEMOGLOBIN 21.4 pg (27.0-33.0); MEAN CORPUSCULAR HGB CONC 28.7 g/dl (32.0-36.5); MEAN CORPUSCULAR VOLUME 74.3 fl (80.0-96.0); PLATELET COUNT, AUTOMATED 144 10^3/uL (150-450); WHITE BLOOD COUNT 4.5 10^3/uL (4.0-10.0)
[2019-11-13 09:26] LABS: CALCIUM LEVEL 7.9 MG/DL (8.8-10.2); CREATININE FOR GFR 1.05 MG/DL (0.55-1.30); GLOMERULAR FILTRATION RATE 55.7 (>45); MAGNESIUM LEVEL 1.6 MG/DL (1.8-2.4); POTASSIUM SERUM 4.4 MEQ/L (3.5-5.1)
[2019-11-13] MEDS ORDERED: ISOVUE-370 76% 100ML VIAL ONE (10:57)
[2019-11-13] MEDS ORDERED: MAG SULF 1GM/100ML (MAG RUN) 1 GM in IV 1 EA IV ONE (11:00)
--- NOTE | 2019-11-13 11:25 | REPVR ---
PROCEDURE INFORMATION: Exam: CT Right Lower Extremity With Contrast; Lower Leg Exam date and time: 11/13/2019 10:58 AM Age: 69 years old Clinical indication: Pain; Lower leg; Right; Additional info: Right leg pain/edema R/O fasciitis TECHNIQUE: Imaging protocol: CT of the Right lower extremity with intravenous contrast was performed. Exam focused on the lower leg. Radiation optimization: All CT scans at this facility use at least one of these dose optimization techniques: automated exposure control; mA and/or kV adjustment per patient size (includes targeted exams where dose is matched to clinical indication); or iterative reconstruction. Contrast material: ISOVUE 370; Contrast volume: 100 ml; Contrast route: INTRAVENOUS (IV); COMPARISON: None provided. FINDINGS: Bones/joints: The bones appear osteopenic. No acute fracture is identified. There is no osseous erosion or cortical destruction. The medial compartment of the knee is mildly narrowed and with very mild periarticular osteophyte formation. There are small plantar and posterior calcaneal enthesophytes. Soft tissues: Subcutaneous edema is present about much of the visualized lower extremity, mild and circumferential about the proximal leg, becoming more moderate and confluent about the mid to distal leg, with confluent extension anteriorly over the ankle into the dorsum of the visualized foot. No discrete collection to suggest abscess is identified. There is no definitive edema of the musculature. There is no abnormal gas in the soft tissues. A small Link's cyst is noted. Vasculature: Atherosclerotic vascular calcifications are noted. IMPRESSION: 1. Subcutaneous edema about much of the lower extremity as described, without discrete abscess, abnormal soft tissue gas or definitive muscle edema. 2. No underlying osseous change to suggest osteomyelitis by CT criteria. 3. Apparent osteopenia. 4. Degenerative changes as described. 5. Small Link's cyst. Electronically signed by: Russell Ellison On 11/13/2019 11:25:19 AM
[2019-11-13 14:00] VITALS: BP 164/72
[2019-11-13] MEDS: tiZANidine 4 MG TAB PO SCH ×2 (14:14→21:29)
[2019-11-13] MEDS: ceFAZolin SOD 2 GM in IV 1 EA IV SCH ×2 (14:15→21:28)
[2019-11-13 22:00] VITALS: BP 123/51
[2019-11-14 06:00] VITALS: BP 124/51
[2019-11-14] MEDS: LEVOTHYROXINE 25MCG TABLET (0.025MG) PO SCH (06:20)
[2019-11-14] MEDS: ceFAZolin SOD 2 GM in IV 1 EA IV SCH ×3 (06:20→21:43)
[2019-11-14 08:29] LABS: BASO # 0.1 10^3/uL (0.0-0.2); BASO % 1.2 % (0.0-1.0); EOS # 0.5 10^3/uL (0.0-0.5); EOS % 8.8 % (0.0-3.0); HEMATOCRIT 34.7 % (36.0-47.0); LYMPH # 2.2 10^3/uL (1.5-5.0); LYMPH % 38.7 % (24.0-44.0); MEAN CORPUSCULAR HEMOGLOBIN 21.2 pg (27.0-33.0); MEAN CORPUSCULAR HGB CONC 28.8 g/dl (32.0-36.5); MEAN CORPUSCULAR VOLUME 73.5 fl (80.0-96.0); MONO # 0.8 10^3/uL (0.0-0.8); MONO % 14.1 % (0.0-5.0); NEUTROPHILS # 2.1 10^3/uL (1.5-8.5); PLATELET COUNT, AUTOMATED 171 10^3/uL (150-450); RED BLOOD COUNT 4.72 10^6/uL (4.00-5.40); WHITE BLOOD COUNT 5.7 10^3/uL (4.0-10.0)
[2019-11-14 08:37] LABS: BLOOD UREA NITROGEN 22 MG/DL (7-18); CARBON DIOXIDE LEVEL 28 MEQ/L (21-32); CHLORIDE LEVEL 107 MEQ/L (98-107); CREATININE FOR GFR 0.83 MG/DL (0.55-1.30); GLOMERULAR FILTRATION RATE > 60.0 (>45); GLUCOSE, FASTING 105 MG/DL (70-100); POTASSIUM SERUM 3.9 MEQ/L (3.5-5.1); SODIUM LEVEL 142 MEQ/L (136-145)
[2019-11-14] MEDS: LEVEMIR (INSULIN DETEMIR) 1 UNITS/0.01ML SC SCH ×2 (09:00→21:42)
[2019-11-14] MEDS: ATORVASTATIN 20 MG TAB PO SCH (09:33)
[2019-11-14] MEDS: LOSARTAN 50MG TABLET PO SCH (09:33)
[2019-11-14] MEDS: DULoxetine 30 MG CAP (CYMBALTA) PO SCH (09:34)
[2019-11-14] MEDS: HEPARIN SOD (PORCINE) 5000UNITS/ML 1ML VIAL/SYRINGE SQ SCH ×2 (09:34→21:42)
[2019-11-14] MEDS: CARVedilol 6.25 MG TAB PO SCH ×2 (09:34→21:42)
[2019-11-14] MEDS: PANTOPRAZOLE 40MG TAB (PROTONIX) PO SCH (09:34)
[2019-11-14] MEDS: ASPIRIN 81 MG ENTERIC TAB PO SCH (09:34)
[2019-11-14] MEDS: FUROSEMIDE 40MG/4ML VIAL (J1940) IV SCH ×2 (09:36→15:17)
[2019-11-14] MEDS: HumaLOG INSULIN (NovoLOG) PER UNIT SC SCH ×3 (09:37→18:31)
[2019-11-14] MEDS ORDERED: VANCOMYCIN HCL 1,000 MG in IV FLUID PLACE HOLDER 1 EA IV SCH (10:45)
[2019-11-14] MEDS ORDERED: VANCOMYCIN HCL 1,000 MG, VIAL MATE ADAPTER 1 EACH in D5W 250 ML IV ONE (11:00)
--- NOTE | 2019-11-14 11:21 | ECGEPIP ---
[facility] - ED Test Date: 2019-11-11 Pat Name: MARIANA SMITH Department: Room: - Gender: Female Manager Desktop: : 1950 Requested By: DANNY SAINI Order Number: [id number] Reading MD: Shaq Tenorio Measurements Intervals [place] Rate: 64 P: 42 [place]: 130 QRS: -15 QRSD: 106 T: 139 QT: 499 QTc: 517 Interpretive Statements SINUS RHYTHM POOR R WAVE PROGRESSION ST DEVIATION AND MODERATE T-WAVE ABNORMALITY, CONSIDER LATERAL ISCHEMIA SIMILAR TO 10/22/19 Electronically Signed on 11-14-2019 11:21:11 EDT by Shaq Tenorio
[2019-11-14] MEDS: ACETAMINOPHEN TAB 650MG DOSE (2X325MG) PO PRN (11:32)
[2019-11-14] MEDS: VANCOMYCIN HCL 1,000 MG, VIAL MATE ADAPTER 1 EACH in D5W 250 ML IV SCH (13:48)
[2019-11-14] MEDS: tiZANidine 4 MG TAB PO SCH ×2 (13:48→21:42)
[2019-11-14 15:00] VITALS: BP 154/68
[2019-11-15] MEDS: FUROSEMIDE 40MG/4ML VIAL (J1940) IV SCH ×3 (00:54→16:38)
[2019-11-15] MEDS: VANCOMYCIN HCL 1,000 MG, VIAL MATE ADAPTER 1 EACH in D5W 250 ML IV SCH ×2 (00:54→12:28)
[2019-11-15] MEDS: ACETAMINOPHEN TAB 650MG DOSE (2X325MG) PO PRN (00:56)
[2019-11-15 06:00] VITALS: BP 151/63
[2019-11-15] MEDS: LEVOTHYROXINE 25MCG TABLET (0.025MG) PO SCH (06:03)
[2019-11-15] MEDS: ceFAZolin SOD 2 GM in IV 1 EA IV SCH ×3 (06:03→21:54)
[2019-11-15] MEDS: HumaLOG INSULIN (NovoLOG) PER UNIT SC SCH ×4 (07:30→17:25)
[2019-11-15] MEDS: LEVEMIR (INSULIN DETEMIR) 1 UNITS/0.01ML SC SCH ×3 (08:16→20:39)
[2019-11-15 08:53] LABS: BASO # 0.1 10^3/uL (0.0-0.2); BASO % 1.3 % (0.0-1.0); EOS # 0.5 10^3/uL (0.0-0.5); EOS % 8.5 % (0.0-3.0); HEMATOCRIT 33.9 % (36.0-47.0); HEMOGLOBIN 10.1 g/dl (12.0-15.5); LYMPH # 2.3 10^3/uL (1.5-5.0); LYMPH % 35.6 % (24.0-44.0); MEAN CORPUSCULAR HGB CONC 29.8 g/dl (32.0-36.5); MEAN CORPUSCULAR VOLUME 73.9 fl (80.0-96.0); MONO # 0.8 10^3/uL (0.0-0.8); MONO % 13.2 % (0.0-5.0); NEUTROPHILS # 2.6 10^3/uL (1.5-8.5); NEUTROPHILS % 41.1 % (36.0-66.0); PLATELET COUNT, AUTOMATED 183 10^3/uL (150-450); RED BLOOD COUNT 4.59 10^6/uL (4.00-5.40); WHITE BLOOD COUNT 6.4 10^3/uL (4.0-10.0)
[2019-11-15 09:03] LABS: BLOOD UREA NITROGEN 18 MG/DL (7-18); CALCIUM LEVEL 7.6 MG/DL (8.8-10.2); CARBON DIOXIDE LEVEL 27 MEQ/L (21-32); CHLORIDE LEVEL 109 MEQ/L (98-107); CREATININE FOR GFR 0.66 MG/DL (0.55-1.30); GLOMERULAR FILTRATION RATE > 60.0 (>45); GLUCOSE, FASTING 83 MG/DL (70-100); POTASSIUM SERUM 3.4 MEQ/L (3.5-5.1); SODIUM LEVEL 142 MEQ/L (136-145)
[2019-11-15] MEDS: DULoxetine 30 MG CAP (CYMBALTA) PO SCH (09:13)
[2019-11-15] MEDS: ASPIRIN 81 MG ENTERIC TAB PO SCH (09:13)
[2019-11-15] MEDS: HEPARIN SOD (PORCINE) 5000UNITS/ML 1ML VIAL/SYRINGE SQ SCH ×2 (09:13→21:54)
[2019-11-15] MEDS: PANTOPRAZOLE 40MG TAB (PROTONIX) PO SCH (09:13)
[2019-11-15] MEDS: LOSARTAN 50MG TABLET PO SCH (09:16)
[2019-11-15] MEDS: ATORVASTATIN 20 MG TAB PO SCH (09:16)
[2019-11-15] MEDS: CARVedilol 6.25 MG TAB PO SCH ×2 (09:16→21:54)
[2019-11-15 14:00] VITALS: BP 174/72
[2019-11-15] MEDS: tiZANidine 4 MG TAB PO SCH ×2 (14:12→21:53)
[2019-11-15 22:00] VITALS: BP 135/47
[2019-11-16] MEDS: VANCOMYCIN HCL 1,000 MG, VIAL MATE ADAPTER 1 EACH in D5W 250 ML IV SCH (00:48)
[2019-11-16] MEDS: FUROSEMIDE 40MG/4ML VIAL (J1940) IV SCH ×3 (00:48→16:53)
[2019-11-16 06:00] VITALS: BP 134/46
[2019-11-16] MEDS: ceFAZolin SOD 2 GM in IV 1 EA IV SCH ×3 (06:05→21:38)
[2019-11-16] MEDS: LEVOTHYROXINE 25MCG TABLET (0.025MG) PO SCH (06:05)
[2019-11-16 06:55] LABS: BASO # 0.1 10^3/uL (0.0-0.2); BASO % 1.4 % (0.0-1.0); EOS # 0.4 10^3/uL (0.0-0.5); EOS % 6.6 % (0.0-3.0); HEMATOCRIT 30.6 % (36.0-47.0); HEMOGLOBIN 8.8 g/dl (12.0-15.5); LYMPH # 2.5 10^3/uL (1.5-5.0); LYMPH % 45.2 % (24.0-44.0); MEAN CORPUSCULAR HEMOGLOBIN 21.3 pg (27.0-33.0); MEAN CORPUSCULAR HGB CONC 28.8 g/dl (32.0-36.5); MEAN CORPUSCULAR VOLUME 74.1 fl (80.0-96.0); MONO # 0.7 10^3/uL (0.0-0.8); MONO % 12.7 % (0.0-5.0); NEUTROPHILS # 1.9 10^3/uL (1.5-8.5); NEUTROPHILS % 33.9 % (36.0-66.0); PLATELET COUNT, AUTOMATED 139 10^3/uL (150-450); RED BLOOD COUNT 4.13 10^6/uL (4.00-5.40); WHITE BLOOD COUNT 5.6 10^3/uL (4.0-10.0)
[2019-11-16 07:14] LABS: BLOOD UREA NITROGEN 19 MG/DL (7-18); CALCIUM LEVEL 7.7 MG/DL (8.8-10.2); CARBON DIOXIDE LEVEL 28 MEQ/L (21-32); CHLORIDE LEVEL 106 MEQ/L (98-107); CREATININE FOR GFR 0.76 MG/DL (0.55-1.30); GLOMERULAR FILTRATION RATE > 60.0 (>45); GLUCOSE, FASTING 277 MG/DL (70-100); POTASSIUM SERUM 3.9 MEQ/L (3.5-5.1); SODIUM LEVEL 140 MEQ/L (136-145)
[2019-11-16] MEDS: HumaLOG INSULIN (NovoLOG) PER UNIT SC SCH ×3 (08:25→17:30)
[2019-11-16] MEDS: LEVEMIR (INSULIN DETEMIR) 1 UNITS/0.01ML SC SCH ×2 (08:25→21:00)
[2019-11-16] MEDS: PANTOPRAZOLE 40MG TAB (PROTONIX) PO SCH (08:26)
[2019-11-16] MEDS: DULoxetine 30 MG CAP (CYMBALTA) PO SCH (08:26)
[2019-11-16] MEDS: ATORVASTATIN 20 MG TAB PO SCH (08:26)
[2019-11-16] MEDS: LOSARTAN 50MG TABLET PO SCH (08:29)
[2019-11-16] MEDS: CARVedilol 6.25 MG TAB PO SCH ×2 (08:29→21:38)
[2019-11-16] MEDS: ASPIRIN 81 MG ENTERIC TAB PO SCH (08:30)
[2019-11-16] MEDS: HEPARIN SOD (PORCINE) 5000UNITS/ML 1ML VIAL/SYRINGE SQ SCH ×2 (08:30→21:38)
[2019-11-16] MEDS: ACETAMINOPHEN TAB 650MG DOSE (2X325MG) PO PRN (12:54)
[2019-11-16 14:00] VITALS: BP 178/63
[2019-11-16] MEDS: tiZANidine 4 MG TAB PO SCH ×2 (14:00→21:37)
[2019-11-16 22:00] VITALS: BP 132/60
[2019-11-17] MEDS: FUROSEMIDE 40MG/4ML VIAL (J1940) IV SCH ×2 (00:34→09:30)
[2019-11-17] MEDS: ceFAZolin SOD 2 GM in IV 1 EA IV SCH (05:52)
[2019-11-17] MEDS: LEVOTHYROXINE 25MCG TABLET (0.025MG) PO SCH (05:52)
[2019-11-17 06:00] VITALS: BP 136/54
[2019-11-17 06:26] LABS: BASO # 0.1 10^3/uL (0.0-0.2); BASO % 1.3 % (0.0-1.0); EOS # 0.4 10^3/uL (0.0-0.5); EOS % 7.2 % (0.0-3.0); HEMATOCRIT 30.2 % (36.0-47.0); HEMOGLOBIN 8.9 g/dl (12.0-15.5); LYMPH # 2.4 10^3/uL (1.5-5.0); LYMPH % 45.2 % (24.0-44.0); MEAN CORPUSCULAR HEMOGLOBIN 21.4 pg (27.0-33.0); MEAN CORPUSCULAR HGB CONC 29.5 g/dl (32.0-36.5); MEAN CORPUSCULAR VOLUME 72.6 fl (80.0-96.0); MONO # 0.7 10^3/uL (0.0-0.8); MONO % 13.7 % (0.0-5.0); NEUTROPHILS # 1.7 10^3/uL (1.5-8.5); NEUTROPHILS % 32.4 % (36.0-66.0); PLATELET COUNT, AUTOMATED 150 10^3/uL (150-450); RED BLOOD COUNT 4.16 10^6/uL (4.00-5.40); WHITE BLOOD COUNT 5.3 10^3/uL (4.0-10.0)
[2019-11-17 06:51] LABS: BLOOD UREA NITROGEN 21 MG/DL (7-18); CALCIUM LEVEL 7.8 MG/DL (8.8-10.2); CARBON DIOXIDE LEVEL 28 MEQ/L (21-32); CHLORIDE LEVEL 107 MEQ/L (98-107); CREATININE FOR GFR 0.71 MG/DL (0.55-1.30); GLOMERULAR FILTRATION RATE > 60.0 (>45); GLUCOSE, FASTING 227 MG/DL (70-100); SODIUM LEVEL 141 MEQ/L (136-145)
--- NOTE | 2019-11-17 07:12 | ECHO ---
DATE OF PROCEDURE: 11/12/2019 Age: Gender: Height: 165 cm Weight: 83 kg REFERRING PHYSICIAN: Dr. Tian INDICATION: Congestive heart failure. MEASUREMENTS: Aorta 2.9 IV 1.3 LV 5.3 LVPW 1.2 LA 4.5 RVC 1.5 Mitral E wave velocity 87, A wave 114 E prime septal 4.4 E prime lateral 6.8 FINDINGS: The study is of good technical quality. The patient is in sinus rhythm. Left ventricle is normal size and systolic function, estimated left ventricular ejection fraction (LVEF) 60 to 65%. No segmental wall motion abnormalities are appreciated. The right ventricle also appears to be normal size and systolic function. Left atrium is moderately enlarged. Right atrium appears grossly normal size. Aortic valve is minimally sclerotic, but mobility of leaflet is preserved. Mitral, tricuspid and pulmonic valves appear normal. No pericardial effusion is noted. Inferior vena cava is normal size. Aortic root appears normal. Aortic arch and abdominal aorta were not seen. Doppler interrogation reveals no aortic stenosis and insufficiency. No mitral stenosis and insufficiency and trace tricuspid insufficiency. Calculated pulmonary artery pressure is in the upper limits of normal values, but quality of the electrocardiogram (EKG) was poor and this should not be considered completely reliable. Pulmonic valve is functionally competent. Mitral inflow pattern and tissue Doppler imaging of mitral annulus reveals grade 1 diastolic dysfunction. CONCLUSIONS: 1. Study is of good technical quality, the patient is in sinus rhythm. 2. Normal LV size with mild left ventricular hypertrophy (LVH) and preserved LV systolic function. Grade 1 diastolic dysfunction. 3. Aortic sclerosis with minimal stenosis and no insufficiency. 4. No additional valvular abnormalities. 5. Likely normal central venous pressure and pulmonary artery pressure. COMMENTS: Echocardiogram is relatively normal for the patient's age. It is not overly supportive of diagnosis of congestive heart failure. [facility]
[2019-11-17] MEDS: DULoxetine 30 MG CAP (CYMBALTA) PO SCH (09:26)
[2019-11-17] MEDS: PANTOPRAZOLE 40MG TAB (PROTONIX) PO SCH (09:26)
[2019-11-17] MEDS: ACETAMINOPHEN TAB 650MG DOSE (2X325MG) PO PRN (09:26)
[2019-11-17] MEDS: ASPIRIN 81 MG ENTERIC TAB PO SCH (09:27)
[2019-11-17] MEDS: LOSARTAN 50MG TABLET PO SCH (09:27)
[2019-11-17] MEDS: ATORVASTATIN 20 MG TAB PO SCH (09:27)
[2019-11-17] MEDS: CARVedilol 6.25 MG TAB PO SCH ×2 (09:28→21:09)
[2019-11-17] MEDS: LEVEMIR (INSULIN DETEMIR) 1 UNITS/0.01ML SC SCH ×2 (09:28→21:08)
[2019-11-17] MEDS: HumaLOG INSULIN (NovoLOG) PER UNIT SC SCH ×3 (09:29→17:30)
[2019-11-17] MEDS: HEPARIN SOD (PORCINE) 5000UNITS/ML 1ML VIAL/SYRINGE SQ SCH ×2 (09:31→21:07)
[2019-11-17] MEDS: tiZANidine 4 MG TAB PO SCH ×2 (12:24→21:08)
[2019-11-17 14:00] VITALS: BP 117/45
[2019-11-17] MEDS: CEFUROXIME 500 MG TAB PO SCH ×2 (15:11→21:09)
--- NOTE | 2019-11-17 15:15 | REPVR ---
PROCEDURE INFORMATION: Exam: US Duplex Right Lower Extremity Arteries Or Arterial Bypass Grafts Exam date and time: 11/17/2019 2:43 PM Age: 69 years old Clinical indication: Pain; Lower leg; Right; Additional info: For right , chronic right leg pain, paraesthesias, swelling. TECHNIQUE: Imaging protocol: Right Real-time duplex scan of the arteries or arterial bypass grafts of the right lower extremity with 2-D amaya scale, color Doppler flow and spectral waveform analysis. Images documented and saved. COMPARISON: CT TIB/FIB WITH CONTRAST RIGHT 11/13/2019 11:08 AM FINDINGS: Right common femoral artery: Peak systolic velocity in the right REPORT MANAGER measures 141 cm/s. Multi phasic waveform. Right superficial femoral artery: Peak systolic velocities in the right superficial femoral artery measure 122, 126, and 126 cm/s. Multi phasic waveforms. Right popliteal artery: Peak systolic velocity in the right popliteal artery measures 95 cm/s. Multi phasic waveform. Right calf/foot arteries: Peak systolic velocity in the right tibioperoneal trunk measures 100 cm/s. Multi phasic waveform. Peak systolic velocities in the right posterior tibial artery measure 81 and 87 cm/s. Multiphasic waveforms. Peak systolic velocities in the right anterior tibial artery measure 93 and 115 cm/s. Multi phasic waveforms. Other arteries: Peak systolic velocity in the right profundus femoral artery measures 102 cm/s. Multi phasic waveform. Scattered atherosclerotic plaque. Soft tissues: Mild distal right lower extremity subcutaneous edema. IMPRESSION: No evidence of hemodynamically significant arterial stenosis within the right lower extremity. Electronically signed by: Kassidy Dill On 11/17/2019 15:15:05 PM
[2019-11-17] MEDS: TORSEMIDE 20 MG TAB PO SCH (17:59)
--- NOTE | 2019-11-17 20:53 | IPNPDOC ---
Subjective Date Seen The patient was seen on 11/17/19. Subjective Chief Complaint/HPI Continues to have severe pain, burning sensation, pins and needles of the right leg with persistent swelling. The swelling of the left leg has almost resolved. She also complains of left hand numbness. She is ambulating better with the walker. Her right leg is extremely sensitive to touch. Putting on the socks causes severe pain. Objective Physical Examination General Exam: Positive: Alert, Cooperative, No Acute Distress Eye Exam: Positive: PERRLA, Conjunctiva & lids normal, EOMI; Negative: Sclera icteric ENT Exam: Positive: Atraumatic, Mucous membr. moist/pink, Pharynx Normal Chest Exam: Positive: Clear to auscultation, Normal air movement Heart Exam: Positive: Rate Normal, Regular Rhythm, Normal S1, Normal S2; Negative: Murmurs, Rubs Abdomen Exam: Positive: Normal bowel sounds, Soft; Negative: Tenderness, Hepatospenomegaly Extremity Exam: Positive: Edema (right), Tenderness (right), Swelling (right) Skin Exam: Positive: Other skin issue (paresthesia of the right leg) Neuro Exam: Positive: Normal Gait, Normal Speech, Strength at 5/5 X4 ext, Normal Tone Psych Exam: Positive: Memory Intact, Oriented x 3 Assessment /Plan Assessment 69 yo W with uncontrolled IDDM2 c/b peripheral neuropathy, Bilateral carpal tunnel, Lumber spinal stenosis, fibromyalgia, HTN, CAD s/p PCI, HFpEF, hypothyroid, HLD, who presented from home after being recommended by her home health service to present to the ED after noting a blood glucose of reading over 600. She also reports acute on chronic R>L worsening of her LE edema and also recently dropped a package of frozen meat on her right foot. She does admit that she does not take all la recommended doses of insulin and does not check her sugars as home regularly. She was admitted for uncontrolled hyperglycemia, acute HFpEF exacerbation, ASAF and potential RLE cellulitis. Right lower extremity pain and swelling > left. No DVT, no arterial flow occlusion Cellulitis resolving probably due to peripheral neuropathy and radiculopathy and fibromyalgia. MRI Cervical spine shows moderate cord impingement at C5/C6 level so may also have myelopathy. will start gabapentin, continue tizanidine. Cymbalta. Will add percocet bid. will discuss MRI cervical spine findings with ortho. Left hand numbness has carpal tunnel syn bilaterally MRI cervical spine shows: Degenerative spondylosis. Multilevel foraminal stenoses. Bulging annuli/posterior disc protrusions from C4-C5 through C6-C7 with mild cord impingement at C4-C5, and mild to moderate cord impingement at C5-C6. probably has radiculopathy at C4/C5 and C5/C6 levels due to bilateral severe foraminal stenosis gabapentin, tizanidine, percocet HFpEF exacerbation resolving. Torsemide, daily weights, fluid restriction. I/O Elevated troponin patient has chronically elevated troponins in the 0.2 to 0.3 range probably due to CHF exacerbation Hyperglycemia with uncontrolled IDDM: continue increased dose of levemir and lispro. needs teaching. ASAF due to CHF exacerbation resolved. RLE cellulitis: cefazolin-- Cefuroxime. CAD s/p stents: continue ASA, statin, coreg Hyperlipidemia: lipitor Chronic Hypothyroidism levothyroxine Hypertension losartan, coreg, diuretic Plan/VTE VTE Prophylaxis Ordered?: Yes VS, [facility]&O[facility] Vital Signs/I&O Vital Signs Date Time Temp Pulse Resp B/P (MAP) Pulse Ox O2 Delivery O2 Flow Rate FiO2 11/17/19 14:00 98.1 65 18 117/45 (69) 99 Room Air I&O- Last 24 Hours up to 6 AM 11/17/19 07:00 Intake Total 760 ml Output Total 2550 ml Balance -1790 ml Laboratory Data 24H LABS Laboratory Tests 2 11/16/19 20:39: Bedside Glucose (Misc Panel) 198H 11/17/19 06:09: Immature Granulocyte % (Auto) 0.2, Neutrophils (%) (Auto) 32.4L, Lymphocytes (%) (Auto) 45.2H, Monocytes (%) (Auto) 13.7H, Eosinophils (%) (Auto) 7.2H, Basophils (%) (Auto) 1.3H, Neutrophils # (Auto) 1.7, Lymphocytes # (Auto) 2.4, Monocytes # (Auto) 0.7, Eosinophils # (Auto) 0.4, Basophils # (Auto) 0.1, Nucleated Red Blood Cells % (auto) 0.0, Anion Gap 6L, Glomerular Filtration Rate > 60.0, Calcium Level 7.8L 11/17/19 11:39: Bedside Glucose (Misc Panel) 293H 11/17/19 17:12: Bedside Glucose (Misc Panel) 146H CBC/BMP Laboratory Tests 11/17/19 06:09 Microbiology Microbiology 11/14/19 Blood Culture - Preliminary, Resulted No Growth after 72 hours. All specime... 11/11/19 Blood Culture - Final, Complete Micrococcus Lylae 11/11/19 Blood Culture - Final, Complete NO GROWTH AFTER 5 DAYS FARHEEN LOO MD Nov 17, 2019 20:53
[2019-11-17] MEDS: GABAPENTIN 100 MG CAP PO SCH (21:08)
[2019-11-17] MEDS: PERCOCET 5MG/325MG TAB PO SCH (21:10)
[2019-11-17 22:00] VITALS: BP 160/62
[2019-11-18] MEDS: LEVOTHYROXINE 25MCG TABLET (0.025MG) PO SCH (05:52)
[2019-11-18 06:00] VITALS: BP 142/58
[2019-11-18 07:14] LABS: BASO # 0.1 10^3/uL (0.0-0.2); BASO % 1.9 % (0.0-1.0); EOS # 0.6 10^3/uL (0.0-0.5); EOS % 9.2 % (0.0-3.0); HEMATOCRIT 38.2 % (36.0-47.0); LYMPH # 2.6 10^3/uL (1.5-5.0); LYMPH % 41.4 % (24.0-44.0); MEAN CORPUSCULAR HEMOGLOBIN 21.4 pg (27.0-33.0); MEAN CORPUSCULAR HGB CONC 28.8 g/dl (32.0-36.5); MEAN CORPUSCULAR VOLUME 74.5 fl (80.0-96.0); MONO # 0.9 10^3/uL (0.0-0.8); MONO % 13.5 % (0.0-5.0); NEUTROPHILS # 2.2 10^3/uL (1.5-8.5); NEUTROPHILS % 33.8 % (36.0-66.0); PLATELET COUNT, AUTOMATED 177 10^3/uL (150-450); RED BLOOD COUNT 5.13 10^6/uL (4.00-5.40); WHITE BLOOD COUNT 6.4 10^3/uL (4.0-10.0)
[2019-11-18 07:38] LABS: BLOOD UREA NITROGEN 22 MG/DL (7-18); CALCIUM LEVEL 8.2 MG/DL (8.8-10.2); CARBON DIOXIDE LEVEL 28 MEQ/L (21-32); CHLORIDE LEVEL 107 MEQ/L (98-107); CREATININE FOR GFR 0.68 MG/DL (0.55-1.30); GLOMERULAR FILTRATION RATE > 60.0 (>45); GLUCOSE, FASTING 85 MG/DL (70-100); POTASSIUM SERUM 3.1 MEQ/L (3.5-5.1); SODIUM LEVEL 143 MEQ/L (136-145)
[2019-11-18] MEDS: HumaLOG INSULIN (NovoLOG) PER UNIT SC SCH ×3 (08:42→18:56)
[2019-11-18] MEDS: ASPIRIN 81 MG ENTERIC TAB PO SCH (08:46)
[2019-11-18] MEDS: TORSEMIDE 20 MG TAB PO SCH ×2 (08:47→18:57)
[2019-11-18] MEDS: ATORVASTATIN 20 MG TAB PO SCH (08:47)
[2019-11-18] MEDS: PANTOPRAZOLE 40MG TAB (PROTONIX) PO SCH (08:47)
[2019-11-18] MEDS: GABAPENTIN 100 MG CAP PO SCH ×2 (08:47→20:50)
[2019-11-18] MEDS: CEFUROXIME 500 MG TAB PO SCH ×2 (08:48→20:50)
[2019-11-18] MEDS: DULoxetine 30 MG CAP (CYMBALTA) PO SCH (08:48)
[2019-11-18] MEDS: PERCOCET 5MG/325MG TAB PO SCH ×2 (08:48→20:51)
[2019-11-18] MEDS: POTASSIUM CHLORIDE 10 MEQ SR TABLET PO SCH ×2 (08:49→20:50)
[2019-11-18] MEDS: LOSARTAN 50MG TABLET PO SCH (08:49)
[2019-11-18] MEDS: CARVedilol 6.25 MG TAB PO SCH ×2 (08:51→20:51)
[2019-11-18] MEDS: HEPARIN SOD (PORCINE) 5000UNITS/ML 1ML VIAL/SYRINGE SQ SCH ×2 (08:52→20:52)
[2019-11-18] MEDS: LEVEMIR (INSULIN DETEMIR) 1 UNITS/0.01ML SC SCH ×2 (09:00→20:52)
--- NOTE | 2019-11-18 13:03 | IPNPDOC ---
Subjective Date Seen The patient was seen on 11/18/19. Subjective Chief Complaint/HPI Continues to have severe right leg pain and paraesthesia though the swelling seems to be better. This am her sugar was down to 66. She reports that at home she does not take insulin every day and does not check her sugar. Objective Physical Examination General Exam: Positive: Alert, Cooperative, No Acute Distress Eye Exam: Positive: PERRLA, Conjunctiva & lids normal, EOMI; Negative: Sclera icteric ENT Exam: Positive: Atraumatic, Mucous membr. moist/pink, Pharynx Normal Chest Exam: Positive: Clear to auscultation, Normal air movement Heart Exam: Positive: Rate Normal, Regular Rhythm, Normal S1, Normal S2; Negative: Murmurs, Rubs Abdomen Exam: Positive: Normal bowel sounds, Soft; Negative: Tenderness, Hepatospenomegaly Extremity Exam: Positive: Edema (right), Tenderness (right), Swelling (right) Skin Exam: Positive: Other skin issue (paresthesia of the right leg) Neuro Exam: Positive: Normal Gait, Normal Speech, Strength at 5/5 X4 ext, Normal Tone Psych Exam: Positive: Memory Intact, Oriented x 3 Assessment /Plan Assessment 69 yo W with uncontrolled IDDM2 c/b peripheral neuropathy, Bilateral carpal tunnel, Lumber spinal stenosis, fibromyalgia, HTN, CAD s/p PCI, HFpEF, hypothyroid, HLD, who presented from home after being recommended by her home health service to present to the ED after noting a blood glucose of reading over 600. She also reports acute on chronic R>L worsening of her LE edema and also recently dropped a package of frozen meat on her right foot. She does admit that she does not take all la recommended doses of insulin and does not check her sugars as home regularly. She was admitted for uncontrolled hyperglycemia, a cute HFpEF exacerbation, ASAF and potential RLE cellulitis. Right lower extremity pain and swelling > left. No DVT, no arterial flow occlusion Cellulitis resolving probably due to peripheral neuropathy and radiculopathy and fibromyalgia. MRI Cervical spine shows moderate cord impingement at C5/C6 level so may also have myelopathy. on gabapentin, continue tizanidine, Cymbalta, percocet bid. will discuss MRI cervical spine findings with ortho. Left hand numbness has carpal tunnel syn bilaterally MRI cervical spine shows: Degenerative spondylosis. Multilevel foraminal stenoses. Bulging annuli/posterior disc protrusions from C4-C5 through C6-C7 with mild cord impingement at C4-C5, and mild to moderate cord impingement at C5-C6. probably has radiculopathy at C4/C5 and C5/C6 levels due to bilateral severe foraminal stenosis gabapentin, tizanidine, percocet HFpEF exacerbation resolving. Torsemide, daily weights, fluid restriction. I/O Elevated troponin patient has chronically elevated troponins in the 0.2 to 0.3 range probably due to CHF exacerbation Hyperglycemia with uncontrolled IDDM: this am had hypoglycemia dose of levemir and lispro decreased. ASAF due to CHF exacerbation resolved. RLE cellulitis: cefazolin-- Cefuroxime. CAD s/p stents: continue ASA, statin, coreg Hyperlipidemia: lipitor Chronic Hypothyroidism levothyroxine Hypertension losartan, coreg, diuretic Plan/VTE VTE Prophylaxis Ordered?: Yes VS, I&O, 24H, Fishbone Vital Signs/I&O Vital Signs Date Time Temp Pulse Resp B/P (MAP) Pulse Ox O2 Delivery O2 Flow Rate FiO2 11/18/19 09:20 6 11/18/19 08:51 66 11/18/19 08:49 160/82 11/18/19 08:48 Room Air 11/18/19 06:00 98.5 96 I&O- Last 24 Hours up to 6 AM 11/18/19 06:00 Intake Total 1840 ml Output Total 4075 ml Balance -2235 ml Laboratory Data 24H LABS Laboratory Tests 2 11/17/19 17:12: Bedside Glucose (Misc Panel) 146H 11/17/19 20:05: Bedside Glucose (Misc Panel) 236H 11/18/19 05:58: Bedside Glucose (Misc Panel) 66L 11/18/19 06:29: Immature Granulocyte % (Auto) 0.2, Neutrophils (%) (Auto) 33.8L, Lymphocytes (%) (Auto) 41.4, Monocytes (%) (Auto) 13.5H, Eosinophils (%) (Auto) 9.2H, Basophils (%) (Auto) 1.9H, Neutrophils # (Auto) 2.2, Lymphocytes # (Auto) 2.6, Monocytes # (Auto) 0.9H, Eosinophils # (Auto) 0.6H, Basophils # (Auto) 0.1, Nucleated Red Blood Cells % (auto) 0.0, Anion Gap 8, Glomerular Filtration Rate > 60.0, Calcium Level 8.2L 11/18/19 06:45: Bedside Glucose (Misc Panel) 90 11/18/19 11:41: Bedside Glucose (Misc Panel) 203H CBC/BMP Laboratory Tests 11/18/19 06:29 Microbiology Microbiology 11/14/19 Blood Culture - Preliminary, Resulted No Growth after 72 hours. All specime... 11/11/19 Blood Culture - Final, Complete Micrococcus Lylae 11/11/19 Blood Culture - Final, Complete NO GROWTH AFTER 5 DAYS FARHEEN LOO MD Nov 18, 2019 13:03
[2019-11-18] MEDS: tiZANidine 4 MG TAB PO SCH ×2 (13:49→20:50)
[2019-11-18 14:00] VITALS: BP 146/67
[2019-11-18 22:00] VITALS: BP 126/43
[2019-11-19] MEDS: LEVOTHYROXINE 25MCG TABLET (0.025MG) PO SCH (05:54)
[2019-11-19 06:00] VITALS: BP 147/57
[2019-11-19 06:57] LABS: BASO # 0.1 10^3/uL (0.0-0.2); BASO % 1.6 % (0.0-1.0); EOS # 0.3 10^3/uL (0.0-0.5); EOS % 6.8 % (0.0-3.0); HEMATOCRIT 29.9 % (36.0-47.0); LYMPH # 2.3 10^3/uL (1.5-5.0); MEAN CORPUSCULAR HEMOGLOBIN 21.3 pg (27.0-33.0); MEAN CORPUSCULAR HGB CONC 28.8 g/dl (32.0-36.5); MEAN CORPUSCULAR VOLUME 74.2 fl (80.0-96.0); MONO # 0.7 10^3/uL (0.0-0.8); MONO % 14.8 % (0.0-5.0); NEUTROPHILS # 1.4 10^3/uL (1.5-8.5); NEUTROPHILS % 28.8 % (36.0-66.0); PLATELET COUNT, AUTOMATED 141 10^3/uL (150-450); RED BLOOD COUNT 4.03 10^6/uL (4.00-5.40); WHITE BLOOD COUNT 4.9 10^3/uL (4.0-10.0)
[2019-11-19 07:02] LABS: HEMOGLOBIN 8.6 g/dl (12.0-15.5)
[2019-11-19 07:33] LABS: BLOOD UREA NITROGEN 27 MG/DL (7-18); CALCIUM LEVEL 7.7 MG/DL (8.8-10.2); CARBON DIOXIDE LEVEL 32 MEQ/L (21-32); CHLORIDE LEVEL 107 MEQ/L (98-107); CREATININE FOR GFR 0.66 MG/DL (0.55-1.30); GLOMERULAR FILTRATION RATE > 60.0 (>45); GLUCOSE, FASTING 161 MG/DL (70-100); POTASSIUM SERUM 3.8 MEQ/L (3.5-5.1); SODIUM LEVEL 141 MEQ/L (136-145)
[2019-11-19] MEDS: PERCOCET 5MG/325MG TAB PO SCH (08:18)
[2019-11-19] MEDS: HumaLOG INSULIN (NovoLOG) PER UNIT SC SCH ×2 (08:18→12:12)
[2019-11-19] MEDS: HEPARIN SOD (PORCINE) 5000UNITS/ML 1ML VIAL/SYRINGE SQ SCH (08:19)
[2019-11-19] MEDS: ASPIRIN 81 MG ENTERIC TAB PO SCH (08:19)
[2019-11-19] MEDS: GABAPENTIN 100 MG CAP PO SCH (08:19)
[2019-11-19] MEDS: PANTOPRAZOLE 40MG TAB (PROTONIX) PO SCH (08:19)
[2019-11-19] MEDS: DULoxetine 30 MG CAP (CYMBALTA) PO SCH (08:19)
[2019-11-19] MEDS: CEFUROXIME 500 MG TAB PO SCH (08:19)
[2019-11-19 08:23] VITALS: BP 176/71
[2019-11-19] MEDS: CARVedilol 6.25 MG TAB PO SCH (08:23)
[2019-11-19] MEDS: LOSARTAN 50MG TABLET PO SCH (08:23)
[2019-11-19] MEDS: POTASSIUM CHLORIDE 10 MEQ SR TABLET PO SCH (08:24)
[2019-11-19] MEDS: TORSEMIDE 20 MG TAB PO SCH (08:24)
[2019-11-19] MEDS: ATORVASTATIN 20 MG TAB PO SCH (08:24)
[2019-11-19] MEDS: LEVEMIR (INSULIN DETEMIR) 1 UNITS/0.01ML SC SCH (08:25)
[2019-11-19] MEDS ORDERED: GABA-1171 PO (09:36)
[2019-11-19] MEDS ORDERED: KLOR10TA76 PO (09:36)
[2019-11-19] MEDS ORDERED: INSUDET SC (09:36)
[2019-11-19] MEDS ORDERED: INSUH10VL SC (09:36)
[2019-11-19] MEDS ORDERED: CEFU50TA PO (09:36)
[2019-11-19] MEDS ORDERED: TORS20TA2 PO (09:36)
--- NOTE | 2019-11-19 15:49 | DS.PDOC ---
Discharge Summary General Date of Admission Nov 11, 2019 at 20:55 Date of Discharge 11/19/19 Discharge Summary PROCEDURES PERFORMED DURING STAY: [None]. DISCHARGE DIAGNOSES: Uncontrolled DM with severe hyperglycemia Right lower ex cellulitis CHF with preserved EF with exacerbation ASAF Cervical spodylosis SECONDARY DIAGNOSIS: IDDM2 c/b peripheral neuropathy, Bilateral carpal tunnel, Lumber spinal stenosis with radiculopathy, fibromyalgia, HTN, CAD s/p PCI, hypothyroid, HLD, COMPLICATIONS/CHIEF COMPLAINT: Chf, Elevated Troponin, Hyperglycemia. HOSPITAL COURSE: 69 yo W with uncontrolled IDDM2 c/b peripheral neuropathy, Bilateral carpal tunnel, Lumber spinal stenosis, fibromyalgia, HTN, CAD s/p PCI, HFpEF, hypothyroid, HLD, who presented from home after being recommended by her home health service to present to the ED after noting a blood glucose of reading over 600. She also reports acute on chronic R>L worsening of her LE edema and also recently dropped a package of frozen meat on her right foot. She does admit that she does not take all the recommended doses of insulin and does not check her sugars as home regularly. She was admitted for uncontrolled hyperglycemia, acute HFpEF exacerbation, ASAF and potential RLE cellulitis. Right lower extremity pain and swelling R > left. No DVT, no arterial flow occlusion Cellulitis resolving probably due to peripheral neuropathy and radiculopathy and fibromyalgia. MRi LS spine from a year ago shows facet arthropathy with foraminal narrowing. MRI Cervical spine shows mild to moderate cord impingement at C5/C6 level so may also have myelopathy. Discussed MRIs with Dr Jean Baptiste. Recommended referral to ortho office once the acute issues are resolved. on gabapentin, continue tizanidine, Cymbalta Left hand numbness has carpal tunnel syn bilaterally MRI cervical spine shows: Degenerative spondylosis. Multilevel foraminal stenoses. Bulging annuli/posterior disc protrusions from C4-C5 through C6-C7 with mild cord impingement at C4-C5, and mild to moderate cord impingement at C5-C6. probably has radiculopathy at C4/C5 and C5/C6 levels due to bilateral severe foraminal stenosis gabapentin, tizanidine, percocet HFpEF exacerbation resolving. Torsemide, daily weights, fluid restriction. Elevated troponin patient has chronically elevated troponins in the 0.2 to 0.3 range probably due to chronic CHF Hyperglycemia with uncontrolled IDDM: Patient noncompliant with insulin and FS levemir and lispro adjusted ASAF due to CHF exacerbation resolved. RLE cellulitis: cefazolin-- Cefuroxime. CAD s/p stents: continue ASA, statin, coreg Hyperlipidemia: lipitor Hypothyroidism levothyroxine Hypertension losartan, coreg, diuretic DISCHARGE MEDICATIONS: Please see below. ALLERGIES: Please see below. PHYSICAL EXAMINATION ON DISCHARGE: VITAL SIGNS: Please see below. General Exam: Positive: Alert, Cooperative, No Acute Distress Eye Exam: Positive: PERRLA, Conjunctiva & lids normal, EOMI; Negative: Sclera icteric ENT Exam: Positive: Atraumatic, Mucous membr. moist/pink, Pharynx Normal Chest Exam: Positive: Clear to auscultation, Normal air movement Heart Exam: Positive: Rate Normal, Regular Rhythm, Normal S1, Normal S2; Negative: Murmurs, Rubs Abdomen Exam: Positive: Normal bowel sounds, Soft; Negative: Tenderness, Hepatospenomegaly Extremity Exam: Positive: Edema (right), Tenderness (right), Swelling (right) Skin Exam: Positive: Other skin issue (paresthesia of the right leg) Neuro Exam: Positive: Normal Gait, Normal Speech, Strength at 5/5 X4 ext, Normal Tone Psych Exam: Positive: Memory Intact, Oriented x 3 LABORATORY DATA: Please see below. ACTIVITY: [As tolerated]. DIET: Carb consistent, fluid restriction 1.8 liters DISPOSITION: 01 Home, Self-Care. DISCHARGE INSTRUCTIONS: PMD in 1 week DISCHARGE CONDITION: [Stable]. TIME SPENT ON DISCHARGE: 35 minutes. Vital Signs/I&Os Vital Signs Date Time Temp Pulse Resp B/P (MAP) Pulse Ox O2 Delivery O2 Flow Rate FiO2 11/19/19 09:30 16 11/19/19 08:23 176/71 11/19/19 08:23 65 11/19/19 06:00 98.3 96 Room Air I&O- Last 24 Hours up to 6 AM 11/19/19 06:00 Intake Total 1120 ml Output Total 3000 ml Balance -1880 ml Laboratory Data Labs 24H Laboratory Tests 2 11/18/19 16:30: Bedside Glucose (Misc Panel) 260H 11/18/19 19:45: Bedside Glucose (Misc Panel) 375H 11/19/19 06:27: Immature Granulocyte % (Auto) 0.0, Neutrophils (%) (Auto) 28.8L, Lymphocytes (%) (Auto) 48.0H, Monocytes (%) (Auto) 14.8H, Eosinophils (%) (Auto) 6.8H, Ba sophils (%) (Auto) 1.6H, Neutrophils # (Auto) 1.4L, Lymphocytes # (Auto) 2.3, Monocytes # (Auto) 0.7, Eosinophils # (Auto) 0.3, Basophils # (Auto) 0.1, Nucleated Red Blood Cells % (auto) 0.0, Anion Gap 2L, Glomerular Filtration Rate > 60.0, Calcium Level 7.7L 11/19/19 11:36: Bedside Glucose (Misc Panel) 218H CBC/BMP Laboratory Tests 11/19/19 06:27 FSBS Laboratory Tests Test 11/18/19 16:30 11/18/19 19:45 11/19/19 11:36 Range/Units Bedside Glucose (Misc Panel) 260 375 218 80-115 MG/DL Microbiology Microbiology 11/14/19 Blood Culture - Final, Complete NO GROWTH AFTER 5 DAYS 11/11/19 Blood Culture - Final, Complete Micrococcus Lylae 11/11/19 Blood Culture - Final, Complete NO GROWTH AFTER 5 DAYS Discharge Medications Scheduled Aspirin (Aspir 81) 81 Mg Tablet.dr, 81 MG PO DAILY, (Reported) Atorvastatin Calcium (Atorvastatin Calcium) 20 Mg Tab, 20 MG PO DAILY, (Reported) Carvedilol (Carvedilol) 3.125 Mg Tablet, 6.25 MG PO BID, (Reported) Cefuroxime Axetil (Cefuroxime) 500 Mg Tablet, 500 MG PO BID Dapagliflozin Propanediol (Farxiga) 10 Mg Tab, 5 MG PO DAILY, (Reported) Duloxetine Hcl (Duloxetine HCl) 30 Mg Capsule.dr, 30 MG PO DAILY, (Reported) Gabapentin (Gabapentin) 100 Mg Capsule, 100 MG PO BID Insulin Detemir (Levemir) 1 Units/0.01 Ml Susp, 25 UNITS SC BID Insulin Human Lispro (Novolog) 100 U/Ml Inj, 0 SC ASDIRECTED As per sliding scale Levothyroxine Sodium (Synthroid) 25 Mcg Tab, 25 MCG PO DAILY, (Reported) Losartan Potassium (Losartan Potassium) 100 Mg Tab, 100 MG PO DAILY, (Reported) Metformin HCl (Metformin HCl ER) 500 Mg Tab.er.24h, 1,000 MG PO BID, (Reported) Pantoprazole Sodium (Pantoprazole Sodium) 40 Mg Tab, 40 MG PO DAILY, (Reported) Potassium Chloride (Klor-Con M10) 10 Meq Tab.er.prt, 20 MEQ PO DAILY Tizanidine HCl (Tizanidine HCl) 4 Mg Cap, 4 MG PO BID, (Reported) AFTERNOON AND EVENING Torsemide (Torsemide) 20 Mg Tablet, 20 MG PO ASDIRECTED 2 tabs at 8 am and 1 tab at 2 pm. Scheduled PRN Menthol (Biofreeze) 118 Ml Gel..ml., 1 APLCT TOP for PAIN, (Reported) APPLIES TO RIGHT LEG AND HIP Allergies Coded Allergies: gatifloxacin (Verified Allergy, Mild, 01/08/19) FARHEEN LOO MD Nov 19, 2019 15:03
--- NOTE | 2019-11-23 17:11 | IPN ---
DATE: 11/12/2019 SUBJECTIVE: This morning, patient says that her right lower extremity still has significant pain especially when she tries to ambulate and move it. No fever or chills overnight. Venous Doppler of the extremity was negative for DVT. Patient complains of uncontrolled glucose at home as well as left hand numbness. Shortness of breath has improved, but still present. No cough, fever or chills overnight. PHYSICAL EXAMINATION: VITALS: Temperature 97.3, pulse 60, respiratory rate 18, blood pressure 119/57, 95% on room air. GENERAL: Awake, alert and oriented x3. Answering questions appropriately. No conversational dyspnea. NECK: No JVD or thyromegaly. No cervical lymphadenopathy. LUNGS: Clear to auscultation. No wheezing, rales or rhonchi. HEART: S1, S2, sinus rhythm. ABDOMEN: Obese, soft, nontender, non-distended, positive bowel sounds. EXTREMITIES: Right lower extremity positive erythema and tenderness. Left hand has decreased sensation. LABORATORY DATA: White count 4.6, hemoglobin 9.6, hematocrit 32, platelet count 152,000. Sodium 141, potassium 3.6, chloride 108, bicarb 27, BUN 23, creatinine 1.05, glucose 201. Magnesium 1.5. AST 64, ALT 39. Blood cultures negative. IMAGING STUDIES: Venous Doppler of right lower extremity no DVT. Foot x-ray 11/11/2019; no change from the old film. Chest x-ray 11/11/2019; no acute findings. ASSESSMENT AND PLAN: This is a 69-year-old female admitted on 11/11/2019 with complaints of uncontrolled glucose of over 600 at home as well as right lower extremity warmth and tenderness and left hand numbness. Patient was admitted for evaluation of right lower extremity edema. Chest x-ray negative. Current issues are: 1. Probable right lower extremity cellulitis. 2. Heart failure with preserved ejection fraction acute on chronic exacerbation, diastolic dysfunction with preserved systolic function. 3. Type 2 non-ST elevation NE with demand mediated ischemia; most likely due to CHF with elevated troponin. 4. Uncontrolled diabetes. 5. Acute kidney injury. 6. History of coronary artery disease. 7. Hyperlipidemia. 8. Chronic hypothyroidism. 9. Hypokalemia. 10. Hypomagnesemia. PLAN: Patient is currently on Lasix, Cephalexin, and continued on her home medications. Levemir insulin has been increased to 50 b.i.d. with better control. Monitor for symptomatic relief. PT, OT, activity as tolerated. Monitor for electrolyte abnormalities and supplement if needed. [facility]
--- NOTE | 2019-11-23 17:13 | IPN ---
DATE: 11/13/2019 SUBJECTIVE: The patient continues to complain of pain in the right lower extremity with increasing swelling despite Cephalexin, no fever or chills overnight. Patient is concerned about her sugar levels being uncontrolled. No other issues per nursing overnight. Patient has diuresed well and was at negative balance. Ultrasound of the lower extremity has no DVT but no improvement and remains edematous. PHYSICAL EXAMINATION: VITAL SIGNS: Temperature 98.3, pulse 57, respiratory rate 16, blood pressure 159/64, 99% on room air. GENERAL: Awake, alert and oriented x3, answering questions appropriately. NECK: No JVD. No thyromegaly. No cervical lymphadenopathy. LUNGS: Diminished, bilateral crackles. HEART: S1 and S2, sinus rhythm. ABDOMEN: Soft, nontender and nondistended. EXTREMITIES: 3+ edema of right lower extremity. Erythema and tenderness on plantar aspect of the foot. LABORATORY DATA: Glucose is 363 at 11:30 this morning, white count 4.5, hemoglobin 9.4, hematocrit 32, platelet count 144,000, admission platelet count 173,000. Sodium 139, potassium 4.4, chloride 105, bicarbonate 26, BUN 25, creatinine 1, glucose 384, A1c of 13.7, magnesium of 1.6. ASSESSMENT AND PLAN: This is a 69-year-old female with a history of Type 2 diabetes, uncontrolled A1c, heart failure with preserved ejection fraction, CAD, non-ST elevation SC, hyperlipidemia, B12 deficiency, vitamin D deficiency, hypertension, hypothyroidism, tinnitus, carpal tunnel, chronic cervical myelopathy with left hand numbness, found on MRI to have degenerative spondylolysis with bulging annuli, posterior disc protrusions from C5, C6 and C7 with mild cord impingement, mild to moderate cord impingement on C5-C6, presented to the Emergency Room with right lower extremity swelling negative for DVT, admitted for cellulitis and possible congestive heart failure. Chest x-ray on admission on 11/11/2019 showed no acute findings. BNP was elevated. CURRENT ISSUES: 1. Right lower extremity cellulitis. 2. Mild compression of C5 to C7 with left hand numbness due to bilateral foraminal stenosis and space edema, __ of the joint space, likely degenerative. 3. Uncontrolled Type 2 diabetes with A1c of 13.7. Glucose ranging from 105 to 384. 4. Electrolyte abnormalities with low potassium and low magnesium due to diuresis. 5. Congestive heart failure, acute diastolic dysfunction. Currently compensated. PLAN: Patient is continued on antibiotics but will change from Cephalexin to IV Cefazolin 2 grams to be adjusted renally if needed. She is continued on Lasix diuresis 40 IV q. 8 hourly, Levemir insulin increased at 60 units b.i.d., continued on Synthroid, Tizanidine, Cozaar. Will discuss with Neurosurgery in [place] regarding the cervical MRI findings, if patient requires inpatient versus outpatient workup and management. GLORIA
--- NOTE | 2019-11-23 17:16 | IPN ---
DATE: 11/14/2019 Patient still complains of 3/10 pain, even when she is resting, of the right lower extremity. Glucose levels are improved. No fever or chills. No shortness of breath. PHYSICAL EXAMINATION: Temperature 98.5, pulse 60, respiratory rate 18, blood pressure 124/51, 99% on room air. GENERAL: Awake, alert, oriented times three, answering questions appropriately. LUNGS: Clear to auscultation. No wheezing, rales, or rhonchi. ABDOMEN: Soft, nontender, nondistended. Positive bowel sounds. EXTREMITIES: Right lower extremity with some erythema on the dorsum of the foot. Edema 3+ all the way to the thigh. Left lower extremity with 1+ edema. LABORATORY DATA: White count 5.7, hemoglobin 10, hematocrit 34, platelet count 171. Sodium 142, potassium 3.9, chloride 107, bicarbonate 28, BUN 22, creatinine 0.83, glucose 105. Microbiology: Blood culture preliminary: Gram-positive cocci in cluster, one of two sets. IMPRESSION: A 69-year-old female admitted on 11/11/2019 due to complaint of hyperglycemia, glucose greater than 600, right lower extremity swelling, pain, difficulty ambulating. Patient was admitted for right lower extremity cellulitis, congestive heart failure with preserved ejection fraction, acute exacerbation, type 2 non-ST elevation myocardial infarction (CA) with elevated troponin due to congestive heart failure (CHF), uncontrolled insulin-dependent diabetic, type 2, acute kidney injury due to congestive heart failure. Gram-positive bacteremia, unknown bacteria species. PLAN: Patient continued on IV cefazolin. Patient will be given IV vancomycin for now. Check methicillin-resistant Staphylococcus aureus (MRSA) screen. Await culture results. Repeat blood cultures. Continue with Lasix diuresis. Monitor patient's blood pressure and creatinine and electrolytes. [facility]
--- NOTE | 2019-11-23 17:19 | IPN ---
DATE: 11/15/2019 SUBJECTIVE: She still complains of 3/10 pain in the right leg, 1/10 when it is elevated on the bed. No fever or chills. She does not feel well today. Glucoses have been 71 to 92 this morning. Her A1c was 13.7. Patient complains of slight dizziness. No chest pain, pressure, tightness, or shortness of breath. Input and output was 3 liters output yesterday, 1 liter today. Creatinine remained stable at 0.83. PHYSICAL EXAMINATION: VITAL SIGNS: Temperature is 96.8, pulse is 59, respiratory rate is 18, blood pressure is 151/63, 96% on room air. GENERAL: Awake, alert and oriented x3, answers questions appropriately. HEENT: No facial asymmetry. Tongue is midline. Dry mucous membranes. LUNGS: Diminished breath sounds but clear to auscultation. No wheezing or rales. HEART: S1 and S2. Sinus rhythm. ABDOMEN: Soft, nontender, nondistended. EXTREMITIES: Erythema and right lower extremity edema with limited range of motion due to severe tenderness. Erythema is decreased. LABORATORY DATA: Pending. ASSESSMENT AND PLAN: A 69-year-old female with a history of diabetes, heart failure with preserved ejection fraction and CAD status post non-ST elevation [place] with drug-eluting stent to the LAD, hyperlipidemia, vitamin D deficiency, hypothyroidism, hypertension, __, fibromyalgia, liver cirrhosis and nonalcoholic steatohepatitis on CT of abdomen and ultrasound. Referred to Dr. Mustafa. Bakers cyst of the left leg with thigh pain and chronic thigh and leg pain, presented to the Emergency Room with uncontrolled Type 2 diabetes, A1c of 13. Patient was found to have right lower extremity edema, erythema, was admitted for right lower extremity cellulitis, DVT has been ruled out. IMPRESSION: 1. Right lower extremity cellulitis. 2. Congestive heart failure, acute on chronic with preserved systolic function. 3. Type 2 diabetes, uncontrolled A1c of 13. 4. History of CAD, non-ST elevation [place] with drug-eluting stent to the LAD in June 2017. 5. Dyslipidemia. 6. Hypothyroidism. 7. Hypertension, uncontrolled. 8. History of nonalcoholic steatohepatitis and cirrhosis on CT of abdomen. 9. Chronic fibromyalgia. 10. History of left leg Bakers cyst. 11. Chronic right thigh and leg pain with negative DVT on ultrasound. PLAN: Patient is being treated for right lower extremity cellulitis with IV Cefazolin, Vancomycin was added due to elevated white count, MRSA screen is negative. Blood culture grew out gram positive cocci on 11/10. Repeat blood cultures have been taken, if contaminated, sample in the blood culture, will discontinue IV Vancomycin. If blood culture grows out Staph aureus will need a 2-D echo to rule out encarditis. Right lower extremity is to be elevated on two pillows at all times. She is continued on Lasix diuresis 40 mg IV q. 8 hourly with significant improvement. Continued on Losartan 100 daily for blood pressure control. Synthroid for hypothyroidism. Due to sudden decrease in glucose with Levemir at 60 b.i.d., the patient complains of dizziness and not feeling well. Considering that her A1c is 13 we should decrease the Levemir insulin to 50 units q. b.i.d. Patients postprandial glucose is elevated and preprandial appears to be stable, therefore will not increase Lispro insulin q.a.c. and decrease long-acting insulin. [facility]
--- NOTE | 2019-11-23 17:24 | IPN ---
DATE: 11/16/2019 SUBJECTIVE: Patient says her pain is 2/10 in the right lower extremity, still swollen. She has passed home safety evaluation. No fever or chills overnight. Breathing well. PHYSICAL EXAMINATION: VITAL SIGNS: Temperature 98.3, pulse is 61, respiratory rate 18, blood pressure is 134/46, 98% on room air. GENERAL: Awake, alert and oriented x3, answering questions appropriately. LUNGS: Clear to auscultation. No wheezing, rales or rhonchi. HEART: S1 and S2, sinus rhythm. ABDOMEN: Soft, nontender and nondistended. EXTREMITIES: Left leg trace edema, right leg 2+. Right lower extremity has significant edema on the dorsal aspect of the foot, decreasing erythema and decreasing tenderness. LABORATORY DATA: White count 5.6, hemoglobin 8.8, hematocrit 30, platelet count 139,000, sodium 140, potassium 3.9, chloride 106, bicarbonate 28, BUN 19, creatinine 0.76, glucose 277. ASSESSMENT AND PLAN: This is a 69-year-old female admitted on 11/10 due to complaints of uncontrolled Type 2 diabetes, found to have right lower extremity edema, negative for DVT, positive for cellulitis, being diuresed for heart failure, now compensated. IMPRESSION: 1. Right lower extremity cellulitis. 2. Uncontrolled Type 2 diabetes. 3. Heart failure with preserved ejection fraction, compensated. 4. History of CAD, non-ST elevation [place]. 5. Vitamin D deficiency. 6. Hypothyroidism. 7. Hypertension. 8. Chronic fibromyalgia. PLAN: Patient is continued on Cefazolin, Vancomycin has been discontinued as the patients blood culture was contaminated. Repeat blood culture is negative. CT of the lower extremity shows no free air, small Bakers cyst. No soft tissue gas or muscle edema. Await clinical improvement. Patients Levemir has been decreased due to episodes of hypoglycemia and dizziness, titrate for better glycemic control. MTDD
== END 2019-11-19 13:00 | disposition home or self-care (01) | DRG 637 ==
LOC: M ED 14:00 → M ED INP 20:55 → M MSPAV 11-12 04:00
PROVIDERS: ADMIT Internal Medicine; ATTEND Internal Medicine Nephrology
DX: E11.65 Type 2 diabetes mellitus with hyperglycemia (principal); I50.33 Acute on chronic diastolic (congestive) heart failure; N17.9 Acute kidney failure, unspecified; L03.115 Cellulitis of right lower limb; E11.42 Type 2 diabetes mellitus with diabetic polyneuropathy; I11.0 Hypertensive heart disease with heart failure; I25.10 Atherosclerotic heart disease of native coronary artery without angina pectoris; I25.2 Old myocardial infarction; E78.5 Hyperlipidemia, unspecified; E53.8 Deficiency of other specified B group vitamins; M48.061 Spinal stenosis, lumbar region without neurogenic claudication; E03.9 Hypothyroidism, unspecified; M79.7 Fibromyalgia; K74.60 Unspecified cirrhosis of liver; D64.9 Anemia, unspecified; M47.22 Other spondylosis with radiculopathy, cervical region; M71.22 Synovial cyst of popliteal space [Baker], left knee; Z95.5 Presence of coronary angioplasty implant and graft; Z87.81 Personal history of (healed) traumatic fracture; Z90.49 Acquired absence of other specified parts of digestive tract; Z98.41 Cataract extraction status, right eye; Z98.42 Cataract extraction status, left eye; Z87.891 Personal history of nicotine dependence; Z79.4 Long term (current) use of insulin; Z79.82 Long term (current) use of aspirin; Z79.899 Other long term (current) drug therapy; Z88.8 Allergy status to other drugs, medicaments and biological substances; R20.0 Anesthesia of skin; M50.10 Cervical disc disorder with radiculopathy, unspecified cervical region

== ENCOUNTER → 2019-12-01 | Outpatient (REF) | payer OTHER ==
[~2019-12-01] MED LIST changes: +CARV3.12 PO; +CEFU50TA PO; +KLOR10TA76 PO; +TORS20TA2 PO
[2019-12-01 14:19] LABS: HEMATOCRIT 33.1 % (36.0-47.0); HEMOGLOBIN 9.6 g/dl (12.0-15.5); MEAN CORPUSCULAR HEMOGLOBIN 21.4 pg (27.0-33.0); MEAN CORPUSCULAR VOLUME 73.7 fl (80.0-96.0); PLATELET COUNT, AUTOMATED 248 10^3/uL (150-450); RED BLOOD COUNT 4.49 10^6/uL (4.00-5.40); WHITE BLOOD COUNT 7.3 10^3/uL (4.0-10.0)
[2019-12-01 15:08] LABS: BLOOD UREA NITROGEN 40 MG/DL (7-18); CALCIUM LEVEL 9.7 MG/DL (8.8-10.2); CARBON DIOXIDE LEVEL 28 MEQ/L (21-32); CHLORIDE LEVEL 101 MEQ/L (98-107); CREATININE FOR GFR 0.91 MG/DL (0.55-1.30); GLOMERULAR FILTRATION RATE > 60.0 (>45); GLUCOSE, FASTING 257 MG/DL (70-100); SODIUM LEVEL 139 MEQ/L (136-145)
== END ==
LOC: M SFHCPLAZ 12:11
PROVIDERS: ATTEND Family Medicine
DX: D50.9 Iron deficiency anemia, unspecified (principal); N18.30 Chronic kidney disease, stage 3 unspecified
CPT/HCPCS: 36415; 80048; 85027; G0463

== ENCOUNTER 2020-01-04 02:06 | Inpatient (IN) | payer OTHER ==
[~2020-01-04] VITALS: Ht 165.1 cm; Wt 77.0 kg
[2020-01-04] VITALS (13 sets, daily range): BP systolic 115–179; BP diastolic 55–82
[2020-01-04 02:33] LABS: BASO % 0.5 % (0.0-1.0); EOS # 0.3 10^3/uL (0.0-0.5); EOS % 4.7 % (0.0-3.0); HEMATOCRIT 24.1 % (36.0-47.0); LYMPH # 2.1 10^3/uL (1.5-5.0); LYMPH % 32.6 % (24.0-44.0); MEAN CORPUSCULAR HEMOGLOBIN 20.2 pg (27.0-33.0); MEAN CORPUSCULAR VOLUME 69.7 fl (80.0-96.0); MONO # 0.8 10^3/uL (0.0-0.8); MONO % 12.6 % (0.0-5.0); NEUTROPHILS # 3.2 10^3/uL (1.5-8.5); NEUTROPHILS % 49.1 % (36.0-66.0); PLATELET COUNT, AUTOMATED 180 10^3/uL (150-450); RED BLOOD COUNT 3.46 10^6/uL (4.00-5.40); WHITE BLOOD COUNT 6.4 10^3/uL (4.0-10.0)
[2020-01-04 03:13] LABS: ALBUMIN 2.8 GM/DL (3.2-5.2); ALT/SGPT 53 U/L (12-78); BILIRUBIN,DIRECT 0.2 MG/DL (0.0-0.2); BILIRUBIN,TOTAL 0.6 MG/DL (0.2-1.0); BLOOD UREA NITROGEN 22 MG/DL (7-18); CALCIUM LEVEL 8.5 MG/DL (8.8-10.2); CARBON DIOXIDE LEVEL 24 MEQ/L (21-32); CHLORIDE LEVEL 97 MEQ/L (98-107); CPK CREATINE PHOSPHOKINASE 48 U/L (26-192); CREATININE FOR GFR 0.92 MG/DL (0.55-1.30); GLOMERULAR FILTRATION RATE > 60.0 (>45); GLUCOSE, FASTING 463 MG/DL (70-100); LIPASE 213 U/L (73-393); MB/CK RELATIVE INDEX 4.17 (< OR =4); POTASSIUM SERUM 3.9 MEQ/L (3.5-5.1); SODIUM LEVEL 132 MEQ/L (136-145); TOTAL PROTEIN 6.1 GM/DL (6.4-8.2)
[2020-01-04 03:23] LABS: HEMOGLOBIN A1c 12.1 %
[2020-01-04] MEDS ORDERED: INSUDET SC (04:51)
[2020-01-04] MEDS ORDERED: POTA10TA17 PO (04:51)
[2020-01-04] MEDS ORDERED: ASPI81TA26 PO (04:51)
[2020-01-04] MEDS ORDERED: TORS20TA2 PO ×2 (04:51)
[2020-01-04] MEDS ORDERED: HYDR-3713 PO (04:51)
[2020-01-04] MEDS ORDERED: GABA-1171 PO (04:51)
[2020-01-04] MEDS ORDERED: INSUH10VL SC (04:51)
--- NOTE | 2020-01-04 05:11 | HPEPDOC ---
[facility] Medical History & Physical Date of Admission Jan 04, 2020 Date of Service: Jan 04, 2020 History and Physical CHIEF COMPLAINT: Weakness HISTORY OF PRESENT ILLNESS: 69F PMHx uncontrolled IDDM2, HTN, CAD (stent 2018), HFpEF, comes to hospital because of weakness. Tells me she was at home when she was getting up to help clean her Vomitus when she felt very weak and had to sit down in bed. Says she did not fall down or lose consciousness. Says during this episode she did not experience blurry vision, headache, shortness of breath, chest pain or palpitations. Says this has happened before to her when her blood count drops and she requires typically 2 units of blood transfusions. She tells me she's noticed her stools have been black over the past 1-2 years. Her primary care doctors told her she requires an EGD but she's been hesitant to consent to it in the past but more accepting currently. Says usually when her blood count drops she just goes to the hospital and gets some blood. Regarding her diabetes patient tells me that she does not take her insulin as she should and she is run out of some of her insulin at home. Tells me she does not check it at home and she is aware that she should take better care of herself. She reports polyuria and polydipsia ongoing for a long time. Regarding her right lower extremity edema she tells me that she dropped a package of frozen meat on her right foot many months ago and says ever since her foot and right leg have been quite tender but this does not impede her ability to walk. Tells me that the swelling is unchanged from before. PAST MEDICAL HISTORY: Type 2 DM HFpEF CAD s/p NSTEMI 07/08/17 with 1 ANNABEL TO LAD Hyperlipidemia Vitamin B12 deficiency-recent level high Hypothyroidism Hypertension Right humerus fracture 05/2017 Tendonitis/carpal tunnel/neuropathy in both hands Fibromyalgia Abdominal hernia Cirrhosis/ARNOLD seen on CT and ABD U/S 06/2017 Colonoscopy and endoscopy-07/2017 Link's cyst left leg with thigh pain Chronic right thigh/leg pain Chronic anemia PAST SURGICAL HISTORY: Remote tonsillectomy Remote salivary gland removal 1981 Cholecystectomy 1984 Hysterectomy for endometrial polyps Fistula repair in perineal area 1992 EGD(NML), colonoscopy(NB IH, NML) Dr. Mustafa EGD (gastric erosions, mild gastrophy) Colonoscopy(diverticulosis, otherwise normal) Dr. Zambrano 07/2017 Drug eluting stent to LAD at [facility] 07/08/2017 Cataract surgery-both eyes 2017 SOCIAL HISTORY: Denies alcohol use Former smoker Denies illicit drug use FAMILY HISTORY: Father-bleeding ulcer Mother type 2 DM, kidney failure, acromegaly Brother has MS, DM2 ALLERGIES: Please see below. REVIEW OF SYSTEMS: Constitutional: No sweating or weight loss Eyes: No eye pain or acute blurred vision HENT: No complaints of headache or sore throat Cadiovascular: No Chest pain or palpitations Pulm: No SOB or cough Gastrointestinal: No N/V, no abdominal pain. No bright red blood in stool Genitourinary: No dysuria or hematuria Musculoskeletal: Right leg pain and swelling per HPI Skin: No rash or jaundice Neurological: weakness but feeling better now. HOME MEDICATIONS: Please see below. PHYSICAL EXAMINATION: Constitutional: Awake and alert, in no apparent distress. Obese. ENT: Sclera are clear. Mucosa is moist. Respiratory: Lungs CTA bilaterally. No respiratory distress. No use of accessory muscles. Cardiovascular: RRR S1 and S2 are normal, no murmur Gastrointestinal: Abdomen is soft, non distended, non tender, BS present. Musculoskeletal: Right lower extremity edema with an ankle. Right lower extremity tender even light palpation from the fourth all the way up to her knees and upper thigh. Decreased lower extremity sensation. Strength intact upper and lower extremities 5 out of 5 Neurologic: No focal neurological deficit. Mental Status: A&O x3, normal affect Skin: Warm, dry LABORATORY DATA: See below. IMAGING: none done so far MICROBIOLOGY: Please see below. ASSESSMENT/PLAN 69F PMHx uncontrolled IDDM2, HTN, CAD (stent 2018), HFpEF, comes in the hospital because of weakness hemoglobin 7. Suspected Symptomatic anemia secondary to an upper GI bleed requiring EGD. Found to have hyperglycemia due to noncompliance with insulin. Admitted to medical unit for glycemic control and workup for anemia. # Symptomatic anemia 2/2 Suspected upper GI bleed: getting 2u pRBC. trend HH. CLD for possible EGD. Consult GI/Sugery in the am for EGD. Protonix IV. Hold anti-platelet therapy (last stent >1 yr ago). Coags. Orthostats. Tele. # IDDM: none compliant. A1C 12.1. Increase home Levemir 50BID (dose at prior admission). ISS. Frequent Accu-Cheks. Hypoglycemic precautions. consistent carb diet after EGD. # RLE edema: appears to be chronic however given her exquisite RLE pain on light palpation on exam will obtain RLE US. # HFpEF: Compensated. Continue home meds. # CAD: continue statin. hold ASA. # HLD: continue statin # hx HTN: Currently normotensive. Hold home meds. Monitor and titrate. # Hypothyroidism: Continue Synthroid. Morning attending no decide if they want to continue please put it and I don't have resident today I'm in ED # Elevated troponin: likely demand, chronically elevated. Trend. EKG unchanged. No concern for active ACS at this time. # DVT prophylaxis: SCDs only A [facility]ouse[facility] Hospitalist Vital Signs Vital Signs Date Time Temp Pulse Resp B/P (MAP) Pulse Ox O2 Delivery O2 Flow Rate FiO2 01/04/20 03:15 150/69 (96) 01/04/20 03:06 55 14 97 Room Air 01/04/20 02:21 97.4 Laboratory Data Labs 24H Laboratory Tests 2 01/04/20 02:22: Immature Granulocyte % (Auto) 0.5, Neutrophils (%) (Auto) 49.1, Lymphocytes (%) (Auto) 32.6, Monocytes (%) (Auto) 12.6H, Eosinophils (%) (Auto) 4.7H, Basophils (%) (Auto) 0.5, Neutrophils # (Auto) 3.2, Lymphocytes # (Auto) 2.1, Monocytes # (Auto) 0.8, Eosinophils # (Auto) 0.3, Basophils # (Auto) 0.0, Nucleated Red Blood Cells % (auto) 0.0, Anion Gap 11, Glomerular Filtration Rate > 60.0, Estimated Mean Plasma Glucose 301H, Hemoglobin A1c 12.1, Calcium Level 8.5L, Total Bilirubin 0.6, Direct Bilirubin 0.2, Aspartate Amino Transf (AST/SGOT) 33, Alanine Aminotransferase (ALT/SGPT) 53, Alkaline Phosphatase 184H, Total Creatine Kinase 48, Creatine Kinase MB 2.0, Creatine Kinase MB Relative Index 4.17H, Troponin I 0.20H, Total Protein 6.1L, Albumin 2.8L, Albumin/Globulin Ratio 0.8L, Lipase 213 01/04/20 04:07: CBC/BMP Laboratory Tests 01/04/20 02:22 Home Medications Scheduled Aspirin (Aspirin EC) 81 Mg Tablet.dr, 81 MG PO DAILY Atorvastatin Calcium (Atorvastatin Calcium) 20 Mg Tab, 20 MG PO DAILY Carvedilol (Carvedilol) 3.125 Mg Tablet, 3.125 MG PO BID Dapagliflozin Propanediol (Farxiga) 10 Mg Tab, 5 MG PO DAILY Duloxetine Hcl (Duloxetine HCl) 30 Mg Capsule.dr, 30 MG PO DAILY Gabapentin (Gabapentin) 100 Mg Capsule, 100 MG PO BID Insulin Detemir (Levemir) 100 Unit/1 Ml Vial, 30 UNITS SC BID Insulin Human Lispro (Novolog) 100 Unit/1 Ml Vial, 1 DOSE SC ASDIRECTED SLIDING SCALE Levothyroxine Sodium (Synthroid) 25 Mcg Tab, 25 MCG PO DAILY Losartan Potassium (Losartan Potassium) 100 Mg Tab, 100 MG PO DAILY Metformin HCl (Metformin HCl ER) 500 Mg Tab.er.24h, 1,000 MG PO BID Pantoprazole Sodium (Pantoprazole Sodium) 40 Mg Tab, 40 MG PO DAILY Potassium Chloride (Potassium Chloride) 10 Meq Tab.er.prt, 10 MEQ PO BID Tizanidine HCl (Tizanidine HCl) 4 Mg Cap, 4 MG PO BID AFTERNOON AND EVENING Torsemide (Torsemide) 20 Mg Tablet, 40 MG PO QAM Torsemide (Torsemide) 20 Mg Tablet, 20 MG PO DAILY @ 1400 Scheduled PRN Hydrocodone/Acetaminophen (Hydrocodone-Acetamin 5-325 mg) 1 Each Tablet, 1 TAB PO DAILY PRN for PAIN MDD 4 Menthol (Biofreeze) 118 Ml Gel..ml., 1 APLCT TOP for PAIN APPLIES TO RIGHT LEG AND HIP Allergies Coded Allergies: gatifloxacin (Verified Allergy, Mild, 01/08/19) A-FIB/CHADSVASC A-FIB History Current/History of A-Fib/PAF?: No SHAHID SOLIS MD Jan 04, 2020 05:11
[2020-01-04] MEDS ORDERED: NORCO, ANEXSIA 5/325MG TABLET (HYDROcodone/ACETAMINOPHEN) PO PRN (05:15)
[2020-01-04] MEDS ORDERED: MOM 30ML SUSPENSION UDC PO PRN (05:15)
[2020-01-04] MEDS ORDERED: ACETAMINOPHEN TAB 650MG DOSE (2X325MG) PO PRN (05:15)
[2020-01-04] MEDS ORDERED: GLUCOSE 4GM CHEW TABLET PO PRN (05:30)
[2020-01-04] MEDS ORDERED: DEXTROSE 50% 50 ML SYRINGE IV PRN (05:30)
[2020-01-04] MEDS ORDERED: GLUCAGON INJ 1MG VIAL SC PRN (05:30)
--- NOTE | 2020-01-04 06:07 | REPVR ---
PROCEDURE INFORMATION: Exam: US Duplex Right Lower Extremity Veins, Limited Exam date and time: 01/04/2020 5:57 AM Age: 69 years old Clinical indication: Pain; Leg, upper and leg, lower; Right; Additional info: Rle swelling and pain TECHNIQUE: Imaging protocol: Real-time Duplex ultrasound of the Right Lower Extremity with 2-D amaya scale, color Doppler flow and spectral waveform analysis with image documentation. Limited exam was focused on the right lower extremity veins. COMPARISON: US Duplex, Ext,LOWER veins,unilat 11/11/2019 4:10 PM FINDINGS: Right deep veins: Unremarkable. The common femoral, femoral, proximal profunda femoral and popliteal veins are patent without thrombus. Normal Doppler waveforms. Normal compressibility and/or augmentation response. Right superficial veins: Unremarkable. Saphenofemoral junction is patent without thrombus. Soft tissues: There is a 1.7 x 1.4 x 0.6 cm anechoic fluid collection in the right popliteal fossa. IMPRESSION: 1. No sonographic evidence of right lower extremity DVT. 2. 1.7 x 1.4 x 0.6 cm right popliteal fossa Link cyst. Electronically signed by: Philip Aleman On 01/04/2020 06:07:15 AM
[2020-01-04] MEDS: LEVOTHYROXINE 25MCG TABLET (0.025MG) PO SCH (06:45)
[2020-01-04 07:26] LABS: HEMATOCRIT 29.5 % (36.0-47.0); HEMOGLOBIN 8.4 g/dl (12.0-15.5); MEAN CORPUSCULAR HEMOGLOBIN 20.5 pg (27.0-33.0); MEAN CORPUSCULAR HGB CONC 28.5 g/dl (32.0-36.5); PLATELET COUNT, AUTOMATED 200 10^3/uL (150-450); WHITE BLOOD COUNT 6.7 10^3/uL (4.0-10.0)
[2020-01-04 07:39] LABS: INR 1.02; PROTHROMBIN TIME 13.6 SECONDS (12.5-14.3)
[2020-01-04 07:53] LABS: BLOOD UREA NITROGEN 23 MG/DL (7-18); CALCIUM LEVEL 9.2 MG/DL (8.8-10.2); CARBON DIOXIDE LEVEL 29 MEQ/L (21-32); CHLORIDE LEVEL 101 MEQ/L (98-107); CREATININE FOR GFR 0.79 MG/DL (0.55-1.30); GLOMERULAR FILTRATION RATE > 60.0 (>45); GLUCOSE, FASTING 229 MG/DL (70-100); SODIUM LEVEL 137 MEQ/L (136-145)
[2020-01-04] MEDS ORDERED: LEVEMIR (INSULIN DETEMIR) 1 UNITS/0.01ML SC SCH (09:00)
[2020-01-04] MEDS: HumaLOG INSULIN (NovoLOG) PER UNIT SC SCH ×3 (10:05→16:34)
[2020-01-04] MEDS: TORSEMIDE 20 MG TAB PO SCH ×2 (10:06→14:25)
[2020-01-04] MEDS: PANTOPRAZOLE 40MG VIAL (C9113 PER 1) IV SCH ×2 (10:06→21:22)
[2020-01-04] MEDS: CARVedilol 3.125 MG TAB PO SCH ×2 (10:08→21:22)
[2020-01-04] MEDS: ATORVASTATIN 20 MG TAB PO SCH (10:08)
[2020-01-04] MEDS: GABAPENTIN 100 MG CAP PO SCH ×2 (10:08→21:22)
[2020-01-04] MEDS: DULoxetine 30 MG CAP (CYMBALTA) PO SCH (10:09)
[2020-01-04] MEDS: LEVEMIR (INSULIN DETEMIR) 1 UNITS/0.01ML SC SCH ×2 (10:37→21:00)
[2020-01-04 14:24] LABS: HEMATOCRIT 32.9 % (36.0-47.0); HEMOGLOBIN 9.8 g/dl (12.0-15.5)
[2020-01-04] MEDS: tiZANidine 4 MG TAB PO SCH ×2 (14:25→21:23)
[2020-01-04 16:01] LABS: HEMATOCRIT 28.9 % (36.0-47.0); HEMOGLOBIN 8.5 g/dl (12.0-15.5)
[2020-01-04] MEDS ORDERED: HumaLOG INSULIN (NovoLOG) PER UNIT SC SCH (21:00)
[2020-01-04 22:16] LABS: HEMOGLOBIN 9.6 g/dl (12.0-15.5)
[2020-01-05] VITALS (7 sets, daily range): BP systolic 116–145; BP diastolic 66–96
[2020-01-05] MEDS: LEVOTHYROXINE 25MCG TABLET (0.025MG) PO SCH (05:01)
[2020-01-05 05:06] LABS: HEMATOCRIT 32.1 % (36.0-47.0); HEMOGLOBIN 9.5 g/dl (12.0-15.5)
[2020-01-05 05:35] LABS: ALBUMIN 2.7 GM/DL (3.2-5.2); ALT/SGPT 47 U/L (12-78); BLOOD UREA NITROGEN 19 MG/DL (7-18); CALCIUM LEVEL 8.5 MG/DL (8.8-10.2); CARBON DIOXIDE LEVEL 31 MEQ/L (21-32); CHLORIDE LEVEL 104 MEQ/L (98-107); CREATININE FOR GFR 0.81 MG/DL (0.55-1.30); GLOMERULAR FILTRATION RATE > 60.0 (>45); GLUCOSE, FASTING 195 MG/DL (70-100); SODIUM LEVEL 141 MEQ/L (136-145)
[2020-01-05] MEDS: HumaLOG INSULIN (NovoLOG) PER UNIT SC SCH ×3 (07:30→17:30)
[2020-01-05 09:12] LABS: TROPONIN I 0.18 NG/ML (< 0.10)
[2020-01-05] MEDS: DULoxetine 30 MG CAP (CYMBALTA) PO SCH (09:24)
[2020-01-05] MEDS: PANTOPRAZOLE 40MG VIAL (C9113 PER 1) IV SCH (09:24)
[2020-01-05] MEDS: TORSEMIDE 20 MG TAB PO SCH ×2 (09:24→13:19)
[2020-01-05] MEDS: GABAPENTIN 100 MG CAP PO SCH (09:24)
[2020-01-05] MEDS: ATORVASTATIN 20 MG TAB PO SCH (09:25)
[2020-01-05] MEDS: CARVedilol 3.125 MG TAB PO SCH (09:25)
[2020-01-05 10:07] LABS: HEMATOCRIT 33.6 % (36.0-47.0); HEMOGLOBIN 9.8 g/dl (12.0-15.5)
--- NOTE | 2020-01-05 12:01 | DS.PDOC ---
Discharge Summary General Date of Admission Jan 04, 2020 at 05:11 Date of Discharge 01/05/20 Discharge Summary PROCEDURES PERFORMED DURING STAY: [None]. ADMITTING DIAGNOSES: 1. . DISCHARGE DIAGNOSES: 1. . COMPLICATIONS/CHIEF COMPLAINT: Abnormal Caridac Enzyme Level, Hyperglycemia. HISTORY OF PRESENT ILLNESS: . HOSPITAL COURSE: . DISCHARGE MEDICATIONS: Please see below. ALLERGIES: Please see below. PHYSICAL EXAMINATION ON DISCHARGE: VITAL SIGNS: Please see below. GENERAL: HEENT: NECK: CARDIOVASCULAR EXAMINATION: RESPIRATORY EXAMINATION: ABDOMINAL EXAMINATION: EXTREMITIES: SKIN: NEUROLOGICAL EXAMINATION: PSYCHIATRIC EXAMINATION: LABORATORY DATA: Please see below. IMAGING: PROGNOSIS: ACTIVITY: [As tolerated]. DIET: DISCHARGE PLAN: DISPOSITION: . DISCHARGE INSTRUCTIONS: 1. . ITEMS TO FOLLOWUP ON ON OUTPATIENT: 1. . DISCHARGE CONDITION: [Stable]. TIME SPENT ON DISCHARGE: Greater than minutes. Vital Signs/I&Os Vital Signs Date Time Temp Pulse Resp B/P (MAP) Pulse Ox O2 Delivery O2 Flow Rate FiO2 01/05/20 09:25 62 135/80 01/05/20 08:00 98.7 20 98 Room Air 01/04/20 12:05 99.0 I&O- Last 24 Hours up to 6 AM 01/05/20 05:59 Intake Total 4120 ml Output Total 4200 ml Balance -80 ml Laboratory Data Labs 24H Laboratory Tests 2 01/04/20 13:45: Bedside Glucose (Misc Panel) 126H 01/04/20 16:33: Bedside Glucose (Misc Panel) 100 01/04/20 19:51: Bedside Glucose (Misc Panel) 35*L 01/04/20 20:19: Bedside Glucose (Misc Panel) 149H 01/04/20 21:19: Bedside Glucose (Misc Panel) 160H 01/05/20 04:53: Anion Gap 6L, Glomerular Filtration Rate > 60.0, Calcium Level 8.5L, Total Bilirubin 1.0#, Aspartate Amino Transf (AST/SGOT) 40H, Alanine Aminotransferase (ALT/SGPT) 47, Alkaline Phosphatase 122H, Troponin I 0.18H, Total Protein 6.0L, Albumin 2.7L, Albumin/Globulin Ratio 0.8L CBC/BMP Laboratory Tests 01/04/20 13:58 01/04/20 15:44 01/04/20 22:02 01/05/20 04:53 01/05/20 09:38 FSBS Laboratory Tests Test 01/04/20 13:45 01/04/20 16:33 01/04/20 19:51 01/04/20 20:19 Range/Units Bedside Glucose (Misc Panel) 126 100 35 149 80-115 MG/DL Test 01/04/20 21:19 Range/Units Bedside Glucose (Misc Panel) 160 80-115 MG/DL Discharge Medications Scheduled Aspirin (Aspirin EC) 81 Mg Tablet.dr, 81 MG PO DAILY, (Reported) Atorvastatin Calcium (Atorvastatin Calcium) 20 Mg Tab, 20 MG PO DAILY, (Reported) Carvedilol (Carvedilol) 3.125 Mg Tablet, 3.125 MG PO BID, (Reported) Dapagliflozin Propanediol (Farxiga) 10 Mg Tab, 5 MG PO DAILY, (Reported) Duloxetine Hcl (Duloxetine HCl) 30 Mg Capsule.dr, 30 MG PO DAILY, (Reported) Gabapentin (Gabapentin) 100 Mg Capsule, 100 MG PO BID, (Reported) Insulin Detemir (Levemir) 100 Unit/1 Ml Vial, 30 UNITS SC BID, (Reported) Insulin Human Lispro (Novolog) 100 Unit/1 Ml Vial, 1 DOSE SC ASDIRECTED, (Reported) SLIDING SCALE Levothyroxine Sodium (Synthroid) 25 Mcg Tab, 25 MCG PO DAILY, (Reported) Losartan Potassium (Losartan Potassium) 100 Mg Tab, 100 MG PO DAILY, (Reported) Metformin HCl (Metformin HCl ER) 500 Mg Tab.er.24h, 1,000 MG PO BID, (Reported) Pantoprazole Sodium (Pantoprazole Sodium) 40 Mg Tab, 40 MG PO DAILY, (Reported) Potassium Chloride (Potassium Chloride) 10 Meq Tab.er.prt, 10 MEQ PO BID, (Reported) Tizanidine HCl (Tizanidine HCl) 4 Mg Cap, 4 MG PO BID, (Reported) AFTERNOON AND EVENING Torsemide (Torsemide) 20 Mg Tablet, 40 MG PO QAM, (Reported) Torsemide (Torsemide) 20 Mg Tablet, 20 MG PO DAILY, (Reported) @ 1400 Scheduled PRN Hydrocodone/Acetaminophen (Hydrocodone-Acetamin 5-325 mg) 1 Each Tablet, 1 TAB PO DAILY PRN for PAIN, (Reported) MDD 4 Menthol (Biofreeze) 118 Ml Gel..ml., 1 APLCT TOP for PAIN, (Reported) APPLIES TO RIGHT LEG AND HIP Allergies Coded Allergies: gatifloxacin (Verified Allergy, Mild, 01/08/19) FIDENCIO ESPINOSA MD Jan 05, 2020 12:01
[2020-01-05] MEDS ORDERED: PANT40TA29 PO (12:11)
[2020-01-05] MEDS ORDERED: SUCR1TA PO (12:11)
[2020-01-05] MEDS: LEVEMIR (INSULIN DETEMIR) 1 UNITS/0.01ML SC SCH (12:11)
[2020-01-05] MEDS ORDERED: ACET1TAB55 PO (12:11)
[2020-01-05] MEDS ORDERED: INSUDET SC (12:11)
[2020-01-05] MEDS: tiZANidine 4 MG TAB PO SCH (13:19)
--- NOTE | 2020-01-05 14:38 | CR ---
DATE OF CONSULTATION: 01/05/2020 HISTORY OF PRESENT ILLNESS: The patient is a 69-year-old female who presents to the hospital due to weakness. She had outpatient blood work that showed she was anemic. She came in to get blood transfusion. She claims she has had intermittent black stools for the past couple of years. She has been recommended to have upper endoscopy done as an outpatient but has refused. However, now she is more willing to have that done. She did have her last upper endoscopy in July of 2017 which showed some duodenal inflammation that was acute. Otherwise, negative scope. She also had a normal colonoscopy around the same time. She denies any nausea, vomiting, no bright red blood in her stool but she has had intermittent black stools, none within the last few days. Currently her labs are back to normal. She responded appropriately to her 2 units of blood that she was given here yesterday. No further complaints. She denies any nausea, vomiting, abdominal pain, fevers, no cough or shortness of breath. No changes in bowel movements. MEDICAL HISTORY: 1. Diabetes. 2. Coronary artery disease. 3. Hyperlipidemia. 4. B12 deficiency. 5. Hypothyroidism. 6. Hypertension. 7. Fibromyalgia. 8. Cirrhosis. SURGICAL HISTORY: 1. Tonsillectomy. 2. Salivary gland excision. 3. . 4. Cholecystectomy. 5. Hysterectomy. 6. Perianal fistula repair. 7. Multiple upper and lower endoscopies. 8. Cardiac stent. 9. Cataract surgery. FAMILY HISTORY: Noncontributory. SOCIAL HISTORY: Denies drug, alcohol or tobacco abuse. ALLERGIES: GATIFLOXACIN. MEDICATIONS: Please see MedRec. REVIEW OF SYSTEMS: Per positives and negatives as stated in the HPI. PHYSICAL EXAMINATION: GENERAL: Alert and oriented x3, no acute distress. VITAL SIGNS: Temp 98.7, pulse 62, respirations 20, blood pressure 135/80, pulse ox 98% on room air. HEENT: Pupils equal, round and reactive to light and accommodation. HEART: S1, S2, regular rate and rhythm. LUNGS: Clear to auscultation bilaterally. ABDOMEN: Soft, nontender, non-distended. EXTREMITIES: No cyanosis, clubbing or edema. LABORATORY DATA: White count 6.7 yesterday, hemoglobin 9.5 today. IMPRESSION/PLAN: The patient is a 69-year-old female with history of chronic iron deficiency anemia likely secondary to an upper GI source. After a long discussion with her it appears that she has been on Pantoprazole for this anemia in the past. However, she has not been taking it first thing in the morning on an empty stomach. She is also taking multiple medications throughout the day on an empty stomach and drinking multiple caffeinated drinks throughout the day. I explained to her the importance of taking her pills with food in her stomach to help protect the stomach lining as well as to make sure she takes the Pantoprazole first thing in the morning 30 minutes before she eats or drinks anything else. She also will cut back on some of her caffeine. With these recommendations I do not feel that an emergent endoscopy will be of any benefit at this time. It may be diagnostic but it will not be of any therapeutic benefit. Therefore, I recommend discharge home with these dietary modifications that I explained to her. Continue with her Pantoprazole when taken appropriately, add in some Carafate for a month to help the GI lining heal and she can follow up with me as an outpatient and will plan for an upper endoscopy in about a month to see how she is doing. GLORIA
[2020-01-05] MEDS ORDERED: HumaLOG INSULIN (NovoLOG) PER UNIT SC STA ×2 (14:58→17:28)
--- NOTE | 2020-01-05 18:02 | ECGEPIP ---
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
== END 2020-01-05 18:35 | disposition home health service (06) | DRG 812 ==
LOC: M ED 02:06 → M ED INP 05:11 → ENRESERV 05:31 → M PCU 06:11
PROVIDERS: ADMIT Family Medicine; ATTEND Family Medicine
PROC: 30233N1 Transfusion of Nonautologous Red Blood Cells into Peripheral Vein, Percutaneous Approach (ICD-10-PCS; principal; 2020-01-04)
DX: D50.9 Iron deficiency anemia, unspecified (principal); K92.2 Gastrointestinal hemorrhage, unspecified; I50.32 Chronic diastolic (congestive) heart failure; E11.9 Type 2 diabetes mellitus without complications; I25.10 Atherosclerotic heart disease of native coronary artery without angina pectoris; E78.5 Hyperlipidemia, unspecified; I11.0 Hypertensive heart disease with heart failure; E03.9 Hypothyroidism, unspecified; Z79.82 Long term (current) use of aspirin; Z79.4 Long term (current) use of insulin; Z79.899 Other long term (current) drug therapy; Z88.1 Allergy status to other antibiotic agents; M79.7 Fibromyalgia; K74.60 Unspecified cirrhosis of liver; Z90.49 Acquired absence of other specified parts of digestive tract; Z95.5 Presence of coronary angioplasty implant and graft; Z98.49 Cataract extraction status, unspecified eye; Z20.828 Contact with and (suspected) exposure to other viral communicable diseases; Z91.14 Patient's other noncompliance with medication regimen; T38.3X6A Underdosing of insulin and oral hypoglycemic [antidiabetic] drugs, initial encounter

== ENCOUNTER → 2020-01-19 | Outpatient (REF) | payer OTHER ==
[~2020-01-19] MED LIST changes: +ACET1TAB55 PO; +HYDR12CA PO; +POTA10TA17 PO; +SUCR1TAB56 PO; +ZOFR4TAB16 PO
[2020-01-19 12:53] LABS: HEMATOCRIT 33.9 % (36.0-47.0); HEMOGLOBIN 10.4 g/dl (12.0-15.5); MEAN CORPUSCULAR HEMOGLOBIN 22.3 pg (27.0-33.0); MEAN CORPUSCULAR HGB CONC 30.7 g/dl (32.0-36.5); MEAN CORPUSCULAR VOLUME 72.7 fl (80.0-96.0); PLATELET COUNT, AUTOMATED 197 10^3/uL (150-450); RED BLOOD COUNT 4.66 10^6/uL (4.00-5.40); WHITE BLOOD COUNT 6.5 10^3/uL (4.0-10.0)
[2020-01-19 13:24] LABS: ALBUMIN 3.2 GM/DL (3.2-5.2); ALT/SGPT 58 U/L (12-78); BILIRUBIN,TOTAL 0.7 MG/DL (0.2-1.0); BLOOD UREA NITROGEN 25 MG/DL (7-18); CALCIUM LEVEL 10.1 MG/DL (8.8-10.2); CARBON DIOXIDE LEVEL 30 MEQ/L (21-32); CHLORIDE LEVEL 101 MEQ/L (98-107); CREATININE FOR GFR 0.69 MG/DL (0.55-1.30); FERRITIN 11 NG/ML (8-252); GLOMERULAR FILTRATION RATE > 60.0 (>45); GLUCOSE, FASTING 163 MG/DL (70-100); IRON (FE) 29 UG/DL (50-170); PERCENT SATURATION 5.7 % (13.2-45.0); POTASSIUM SERUM 3.6 MEQ/L (3.5-5.1); SODIUM LEVEL 140 MEQ/L (136-145); TOTAL IRON BINDING CAPACITY 510 UG/DL (250-450); TOTAL PROTEIN 7.3 GM/DL (6.4-8.2)
== END ==
LOC: M SFHCPLAZ 11:45
PROVIDERS: ATTEND Family Medicine
DX: D50.0 Iron deficiency anemia secondary to blood loss (chronic) (principal); K74.69 Other cirrhosis of liver; I50.32 Chronic diastolic (congestive) heart failure
CPT/HCPCS: 36415; 80053; 82105; 82728; 83550; 85027; 99495; G0463

== ENCOUNTER → 2020-01-29 | Outpatient (CLI) | payer OTHER ==
[~2020-01-29] MED LIST changes: -ZOFR4TAB16 PO
--- NOTE | 2020-01-29 12:28 | REP ---
INDICATION: K74.69 OTHER CIRRHOSIS OF LIVER. COMPARISON: Comparison CT study March 07, 2018. Comparison sonography is from September 21, 2016.. TECHNIQUE: Right upper quadrant transabdominal scanning. Color and pulse Doppler interrogation of the portal vein. FINDINGS: Scan quality is inhibited by patient body habitus and the acquire operative ability. There is bowel gas. By history the gallbladder is surgically absent. This is confirmed on prior CT study. The liver has a somewhat heterogeneous texture and appears enlarged with a 21 cm mid clavicular line craniocaudal span by ultrasound. No focal liver lesion is appreciated. Common bile duct is 1.1 cm in diameter which is around the upper range of normal post cholecystectomy. No intrahepatic biliary ductal dilation is observed. No pancreatic abnormality is observed. There is no evidence of ascites or right renal abnormality. The right kidney measures 13.4 x 5.0 x 3.6 cm. Doppler assessment demonstrates patency and normal flow in the splenic vein and superior mesenteric vein. Venous flow was observed in the extrahepatic segment of the main portal vein. However, we were not able to document venous flow in the intrahepatic main portal vein or left main portal vein. Portal venous thrombosis or partial portal venous thrombosis cannot be excluded. IMPRESSION: Post cholecystectomy. Borderline CBD. We were not able to document flow and patency in the intrahepatic main and left portal vein segments question partial portal vein thrombosis. CT scanning with multiphase postcontrast imaging could be considered for further evaluation if there are no contraindications to contrast. Hepatomegaly. No other abnormality. <Electronically signed by Jackson Ruiz > 01/29/20 [id number]
== END ==
LOC: M WHC 08:11
PROVIDERS: ATTEND Family Medicine
DX: K74.69 Other cirrhosis of liver (principal); R16.0 Hepatomegaly, not elsewhere classified; Z90.49 Acquired absence of other specified parts of digestive tract

== ENCOUNTER 2020-01-31 15:36 | Inpatient (IN) | payer OTHER ==
[~2020-01-31] VITALS: Ht 165.1 cm; Wt 77.4 kg
[~2020-01-31 15:36] MED LIST changes: -HYDR12CA PO; -SUCR1TAB56 PO
[2020-01-31 16:43] LABS: BASO # 0.1 10^3/uL (0.0-0.2); BASO % 0.8 % (0.0-1.0); EOS # 0.4 10^3/uL (0.0-0.5); EOS % 4.7 % (0.0-3.0); HEMATOCRIT 34.1 % (36.0-47.0); HEMOGLOBIN 10.1 g/dl (12.0-15.5); LYMPH # 2.5 10^3/uL (1.5-5.0); LYMPH % 29.5 % (24.0-44.0); MEAN CORPUSCULAR HEMOGLOBIN 21.4 pg (27.0-33.0); MEAN CORPUSCULAR HGB CONC 29.6 g/dl (32.0-36.5); MEAN CORPUSCULAR VOLUME 72.1 fl (80.0-96.0); MONO # 1.1 10^3/uL (0.0-0.8); MONO % 13.4 % (0.0-5.0); NEUTROPHILS # 4.3 10^3/uL (1.5-8.5); NEUTROPHILS % 51.4 % (36.0-66.0); PLATELET COUNT, AUTOMATED 276 10^3/uL (150-450); RED BLOOD COUNT 4.73 10^6/uL (4.00-5.40); WHITE BLOOD COUNT 8.3 10^3/uL (4.0-10.0)
--- NOTE | 2020-01-31 17:02 | REP ---
INDICATION: fall with dizziness, confusion. COMPARISON: Comparison head CT study is from September 07, 2019.. TECHNIQUE: Helical scanning is acquired. 5 mm axial images were reformatted. Coronal MPR images were generated. FINDINGS: There is a focal scalp hematoma in the right parietal region. No skull fracture is seen. No bony destructive lesion is appreciated. Vascular calcification is noted in the distal internal carotid arteries bilaterally. The visualized paranasal sinuses are clear. No intraorbital abnormality is seen. On soft tissue window settings, the lateral, 3rd, and 4th ventricles are normal in size and position. Jaramillo-white differentiation pattern is normal above and below the tentorium. There is no evidence of intracranial hemorrhage. No mass, extra-axial fluid collection, or midline shift is appreciated. IMPRESSION: Right parietal scalp hematoma. No skull fracture or intracranial injury. No acute intracranial abnormality.. <Electronically signed by Jackson Ruiz > 01/31/20 2037
[2020-01-31 17:20] LABS: ALBUMIN 3.4 GM/DL (3.2-5.2); ALT/SGPT 25 U/L (12-78); BILIRUBIN,DIRECT 0.2 MG/DL (0.0-0.2); BILIRUBIN,TOTAL 0.8 MG/DL (0.2-1.0); BLOOD UREA NITROGEN 41 MG/DL (7-18); CALCIUM LEVEL 9.9 MG/DL (8.8-10.2); CARBON DIOXIDE LEVEL 29 MEQ/L (21-32); CHLORIDE LEVEL 95 MEQ/L (98-107); CK-MB VALUE MASS < 1.0 NG/ML (<3.6); CPK CREATINE PHOSPHOKINASE 67 U/L (26-192); CREATININE FOR GFR 1.38 MG/DL (0.55-1.30); FREE T4 1.14 NG/DL (0.76-1.46); GLOMERULAR FILTRATION RATE 40.6 (>45); GLUCOSE, FASTING 169 MG/DL (70-100); LIPASE 137 U/L (73-393); MB/CK RELATIVE INDEX 1.49 (< OR =4); POTASSIUM SERUM 3.6 MEQ/L (3.5-5.1); SODIUM LEVEL 136 MEQ/L (136-145); TOTAL PROTEIN 7.7 GM/DL (6.4-8.2); TROPONIN I 0.21 NG/ML (< 0.10)
--- NOTE | 2020-01-31 17:24 | REP ---
INDICATION: fall with pain to ribs. COMPARISON: Comparison chest x-ray November 11, 2019.. TECHNIQUE: Five views including PA chest. FINDINGS: PA chest radiograph shows no evidence of pneumothorax or hydrothorax. Lung lloyd are clear. Mediastinum is not widened. Heart is mildly prominent in size. Cardiothoracic ratio is 51.0%. There clips in right upper quadrant of the abdomen. Pulmonary vasculature is not increased. Multiple views of the right rib cage show contour irregularities of the anterolateral right 8 and 9th ribs consistent with rib fractures. No other rib fracture is appreciated. Study is otherwise unremarkable. IMPRESSION: Nondisplaced fractures of the right lateral 8th and 9th ribs. Mildly prominent heart. Otherwise negative. <Electronically signed by Jackson Ruiz > 01/31/20 3038
[2020-01-31] MEDS ORDERED: NS 1,000 ML IV ONE (17:30)
[2020-01-31] MEDS ORDERED: INSUDET SC (18:42)
[2020-01-31] MEDS ORDERED: SUCR1TAB56 PO (18:42)
[2020-01-31] MEDS ORDERED: PANT40TA29 PO (18:42)
[2020-01-31] MEDS ORDERED: **hydrALAZINE HCL** 25 MG TAB PO PRN (19:15)
[2020-01-31] MEDS ORDERED: ACETAMINOPHEN TAB 650MG DOSE (2X325MG) PO PRN (19:15)
[2020-01-31] MEDS ORDERED: NORCO, ANEXSIA 5/325MG TABLET (HYDROcodone/ACETAMINOPHEN) PO PRN (19:15)
--- NOTE | 2020-01-31 19:46 | ECGEPIP ---
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
--- NOTE | 2020-01-31 19:56 | HPEPDOC ---
General Date of Admission Jan 31, 2020 at 19:04 Date of Service: Jan 31, 2020 Attending Physician: HAROON HUTTON DO Chief Complaint The patient is a 69-year-old female admitted with a reason for visit of Acute Kidney Injury,Syncope. Source: Patient History of Present Illness Mrs. Danielle is a 69-year-old female with cirrhosis, type 2 diabetes mellitus, and CAD status post stent who is here after falling 3 times in the past week and was found to have acute kidney injury. She was recently here in December for weakness which was secondary to anemia. She did well after discharge, until last . Denies any recent changes to medications, but reports poor appetite. She tells me she does drink a lot of water. But on , Saturday, and today (Saturday), she stood up to go to the bathroom and then suddenly felt lightheaded and fell. Since it happened again today, she came to the ED. When she stood up she denied any chest pain, short of breath, or palpitations. While in the ED, CT head was negative and x-ray ribs demonstrated right eighth and ninth rib fractures. Despite this finding, no chest pain. Workup was significant for elevated BUN and creatinine. She is given normal saline and admission was requested. Patient was admitted for syncope and acute kidney injury. Home Medications Scheduled Aspirin (Aspirin EC) 81 Mg Tablet.dr, 81 MG PO DAILY, (Reported) Atorvastatin Calcium (Atorvastatin Calcium) 20 Mg Tab, 20 MG PO DAILY, (Reported) Carvedilol (Carvedilol) 3.125 Mg Tablet, 3.125 MG PO BID, (Reported) Dapagliflozin Propanediol (Farxiga) 10 Mg Tab, 5 MG PO DAILY, (Reported) Duloxetine Hcl (Duloxetine HCl) 30 Mg Capsule.dr, 30 MG PO DAILY, (Reported) Gabapentin (Gabapentin) 100 Mg Capsule, 100 MG PO BID, (Reported) Insulin Detemir (Levemir) 100 Unit/1 Ml Vial, 25 UNITS SC BID, (Reported) Insulin Human Lispro (Novolog) 100 Unit/1 Ml Vial, 1 DOSE SC ASDIRECTED, (Reported) SLIDING SCALE Levothyroxine Sodium (Synthroid) 25 Mcg Tab, 25 MCG PO DAILY, (Reported) Losartan Potassium (Losartan Potassium) 100 Mg Tab, 100 MG PO DAILY, (Reported) Metformin HCl (Metformin HCl ER) 500 Mg Tab.er.24h, 1,000 MG PO BID, (Reported) Pantoprazole Sodium (Pantoprazole Sodium) 40 Mg Tablet.dr, 40 MG PO DAILY, (Reported) Potassium Chloride (Potassium Chloride) 10 Meq Tab.er.prt, 10 MEQ PO BID, ( Reported) Sucralfate (Sucralfate) 1 Gm Tablet, 1 GM PO TID, (Reported) Tizanidine HCl (Tizanidine HCl) 4 Mg Cap, 4 MG PO BID, (Reported) AFTERNOON AND EVENING Torsemide (Torsemide) 20 Mg Tablet, 40 MG PO QAM, (Reported) Torsemide (Torsemide) 20 Mg Tablet, 20 MG PO DAILY, (Reported) @ 1400 Scheduled PRN Acetaminophen (Acetaminophen) 325 Mg Tablet, 650 MG PO Q8HP PRN for PAIN 1-3 OR FEVER Hydrocodone/Acetaminophen (Hydrocodone-Acetamin 5-325 mg) 1 Each Tablet, 1 TAB PO QHS PRN for PAIN, (Reported) Menthol (Biofreeze) 118 Ml Gel..ml., 1 APLCT TOP for PAIN, (Reported) APPLIES TO RIGHT LEG AND HIP Allergies Coded Allergies: gatifloxacin (Verified Allergy, Mild, 01/08/19) Past Medical History Medical History 1. Type 2 DM 2. HFpEF 3. CAD s/p NSTEMI 07/08/17 with 1 ANNABEL TO LAD 4. Hyperlipidemia 5. Vitamin B12 deficiency-recent level high 6. Hypothyroidism 7. Hypertension 8. Right humerus fracture 05/2017 9. Tendonitis/carpal tunnel/neuropathy in both hands 10. Fibromyalgia 11. Abdominal hernia 12. Cirrhosis/ARNOLD seen on CT and ABD U/S 06/2017 13. Link's cyst left leg with thigh pain 14. Chronic right thigh/leg pain 15. Chronic anemia Surgical History 1. Colonoscopy and endoscopy-07/2017 2. Remote tonsillectomy 3. Remote salivary gland removal 4. 1981 5. Cholecystectomy 1984 6. Hysterectomy for endometrial polyps 7. Fistula repair in perineal area 1992 8. EGD(NML), colonoscopy(NB IH, NML) Dr. Mustafa 9. EGD (gastric erosions, mild gastrophy) Colonoscopy(diverticulosis, otherwise normal) Dr. Zambrano 07/2017 10. Drug eluting stent to LAD at [facility] 07/08/2017 11. Cataract surgery-both eyes 2016 Family History Father: Bleeding ulcer Mother: Type 2 diabetes mellitus, kidney failure, acromegaly Brother: MS, type 2 diabetes mellitus Social History * Smoker: former Smoker Alcohol: Denies Drugs: denies A-FIB/CHADSVASC A-FIB History Current/History of A-Fib/PAF?: No Review of Systems Constitutional: Denies: Fever Eyes: Denies: Eyelid inflammation ENT: Reports: Head Aches Skin: Denies: Rash Pulmonary: Denies: Dyspnea, Cough Cardiovascular: Reports: Lt Headedness; Denies: Chest Pain, Palpitations Gastrointestinal: Reports: Other Symptoms (poor appetite); Denies: Nausea, Abdominal Pain Genitourinary: Denies: Dysuria Hematologic: Denies: Bruising Endocrine: Reports: Polydipsia; Denies: Polyphagia Musculoskeletal: Reports: Leg Pain (right leg pain secondary to fibromyalgia) Neurological: Reports: Weakness Physical Examination General Exam: Positive: Alert, Cooperative Eye Exam: Positive: EOMI; Negative: Sclera icteric ENT Exam: Positive: Mucous membr. moist/pink, Tongue Midline Neck Exam: Positive: Supple Chest Exam: Positive: Clear to auscultation Heart Exam: Positive: Rate Normal, Regular Rhythm Abdomen Exam: Positive: Normal bowel sounds, Soft; Negative: Tenderness Extremity Exam: Positive: Edema (bilateral edema) Neuro Exam: Positive: Cranial Nerves 3-12 NL Psych Exam: Positive: Mental status NL, Mood NL, Oriented x 3 Vital Signs Vital Signs Date Time Temp Pulse Resp B/P (MAP) Pulse Ox O2 Delivery O2 Flow Rate FiO2 01/31/20 19:09 97.4 64 18 174/78 (110) 100 Room Air Laboratory Data Labs 24H Laboratory Tests 2 01/31/20 16:25: Immature Granulocyte % (Auto) 0.2, Neutrophils (%) (Auto) 51.4, Lymphocytes (%) (Auto) 29.5, Monocytes (%) (Auto) 13.4H, Eosinophils (%) (Auto) 4.7H, Basophils (%) (Auto) 0.8, Neutrophils # (Auto) 4.3, Lymphocytes # (Auto) 2.5, Monocytes # (Auto) 1.1H, Eosinophils # (Auto) 0.4, Basophils # (Auto) 0.1, Nucleated Red Blood Cells % (auto) 0.0, Anion Gap 12, Glomerular Filtration Rate 40.6L, Calcium Level 9.9, Magnesium Level 2.0, Total Bilirubin 0.8, Direct Bilirubin 0.2, Aspartate Amino Transf (AST/SGOT) 18, Alanine Aminotransferase (ALT/SGPT) 25, Alkaline Phosphatase 160H, Total Creatine Kinase 67, Creatine Kinase MB < 1.0, Creatine Kinase MB Relative Index 1.49, Troponin I 0.21H, Total Protein 7.7, Albumin 3.4, Albumin/Globulin Ratio 0.8L, Lipase 137, Thyroid Stimulating Hormone (TSH) 3.230, Free Thyroxine 1.14 01/31/20 18:30: CBC/BMP Laboratory Tests 01/31/20 16:25 Assessment/Plan Mrs. Danielle is a 69-year-old female with cirrhosis, type 2 diabetes mellitus, and CAD status post stent who is here after falling 3 times in the past week and was found to have acute kidney injury. Orthostatics where not able to be done in the ED due to lightheadedness when she stands. She will be monitored on Tele for syncope. In terms of ASAF, urine studies and US renal will be ordered. ASAF may be secondary to medications (diuretics and ARB) or hypertension as blood pressure was elevated. Disposition pending improvement in renal function Plan / VTE VTE Prophylaxis Ordered?: Yes Plan Plan 1. Syncope -Recent echocardiogram in October, EF 60%, Grade I diastolic dysfunction, minimal aortic sclerosis and no insufficiency, no additional valvular abnormalities. Also normal CVP and PAP -May be secondary to blood pressure. Blood pressure low at PCP office, but high here. She may have autonomic dysfunction secondary to diabetes mellitus. Will check orthostatic vitals in the morning -Monitor on tele for arrhythmia. History of CAD s/p stent 2. Acute kidney injury Patient reports poor appetite, but has been drinking fluids well Acute kidney injury may be secondary to medications. On torsemide and ARB on home Hold torsemide and ARB. Avoid nephrotoxic agents Optimize blood pressure 3. Cirrhosis Started on a 2 g sodium diet Was on torsemide, hold due to acute kidney injury. 4. Heart failure with preserved ejection fraction Compensated Start on a 2 g sodium diet Was on torsemide, hold due to acute kidney injury 5. Insulin-dependent diabetes mellitus Poorly controlled. Last HbA1c was in December. HbA1c 12.1% Carbohydrate consistent diet and sliding scale insulin 6. CAD status post 1 stent Stable, no active chest pain or Continue aspirin, statin, and Coreg ARB held due to acute kidney injury 7. Hypertension Hypertensive in the ED Holding ARB due to acute kidney injury Added amlodipine and as needed hydralazine Continue Coreg 8. Fibromyalgia Right leg is tender Continue toxaphene, gabapentin, and [place] 9. Hypothyroidism Continue levothyroxine 10. DVT prophylaxis -SCDs and teds Disposition: Pending improvement in renal function HAROON HUTTON DO Jan 31, 2020 19:30
[2020-01-31] MEDS: SUCRALFATE 1 GM TAB PO SCH (20:39)
[2020-01-31] MEDS: LEVEMIR (INSULIN DETEMIR) 1 UNITS/0.01ML SC SCH (20:39)
[2020-01-31] MEDS: CARVedilol 3.125 MG TAB PO SCH (20:39)
[2020-01-31] MEDS: amLODIPine 5 MG TAB PO SCH (20:40)
[2020-01-31] MEDS: GABAPENTIN 100 MG CAP PO SCH (20:40)
--- NOTE | 2020-01-31 20:56 | REPVR ---
PROCEDURE INFORMATION: Exam: US Retroperitoneal Limited, Kidneys Exam date and time: 01/31/2020 8:11 PM Age: 69 years old Clinical indication: Abnormal findings; Abnormal lab test; Abnormal function test of other organs/systems; Additional info: [place] TECHNIQUE: Imaging protocol: Real-time ultrasound of the retroperitoneum with image documentation. Examination was focused on the kidneys. COMPARISON: 1. ABDOMEN LIMITED US 01/29/2020 8:30 AM 2. OT - CT ABD PELVIS W/O CONTRAST 03/07/2018 11:59:19 AM (The report from this study was not available for review at the time of this interpretation.) FINDINGS: Right kidney: Unremarkable. There is no renal cortical thinning. The renal cortical echogenicity is within normal limits. No renal lesion is seen. There is no hydronephrosis. No obvious stones are seen in the renal collecting system. The right kidney measures 12.8 cm in length. Left kidney: Unremarkable. There is no renal cortical thinning. The renal cortical echogenicity is within normal limits. No renal lesion is seen. There is no hydronephrosis. No obvious stones are seen in the renal collecting system. The left kidney measures 13.1 cm in length. Bladder: The urinary bladder is unremarkable. IMPRESSION: Normal ultrasound of the kidneys and urinary bladder. No hydronephrosis. Electronically signed by: Melquiades Ferro On 01/31/2020 20:56:13 PM
[2020-02-01 04:17] LABS: HEMATOCRIT 33.5 % (36.0-47.0); HEMOGLOBIN 9.9 g/dl (12.0-15.5); MEAN CORPUSCULAR HEMOGLOBIN 21.6 pg (27.0-33.0); MEAN CORPUSCULAR HGB CONC 29.6 g/dl (32.0-36.5); PLATELET COUNT, AUTOMATED 248 10^3/uL (150-450); RED BLOOD COUNT 4.59 10^6/uL (4.00-5.40)
[2020-02-01 04:32] VITALS: BP 155/65
[2020-02-01 04:37] LABS: CALCIUM LEVEL 8.7 MG/DL (8.8-10.2); CREATININE FOR GFR 1.05 MG/DL (0.55-1.30); GLOMERULAR FILTRATION RATE 55.5 (>45); POTASSIUM SERUM 3.2 MEQ/L (3.5-5.1)
[2020-02-01 04:43] VITALS: BP_SYST 146; BP_SYST 155; BP_SYST 157; BP_DIAS 65; BP_DIAS 66; BP_DIAS 69
[2020-02-01] MEDS ORDERED: GLUCOSE 4GM CHEW TABLET PO PRN (05:45)
[2020-02-01] MEDS ORDERED: DEXTROSE 50% 50 ML SYRINGE IV PRN (05:45)
[2020-02-01] MEDS ORDERED: POTASSIUM CHLORIDE 10 MEQ SR TABLET PO ONE ×2 (05:45→07:45)
[2020-02-01] MEDS ORDERED: GLUCAGON INJ 1MG VIAL SC PRN (05:45)
[2020-02-01] MEDS: NORCO, ANEXSIA 5/325MG TABLET (HYDROcodone/ACETAMINOPHEN) PO PRN (05:58)
[2020-02-01 06:41] LABS: APPEARANCE, URINE CLEAR (CLEAR); BACTERIA, URINE AUTO NEGATIVE (NEGATIVE); BILIRUBIN, URINE AUTO NEGATIVE (NEGATIVE); BLOOD, URINE BLOOD NEGATIVE (NEGATIVE); COLOR, URINE YELLOW (YELLOW); GLUCOSE, URINE (UA) AUTO 3+ mg/dL (NEGATIVE); KETONE, URINE AUTO NEGATIVE (NEGATIVE); LEUKOCYTE ESTERASE, URINE AUTO NEGATIVE (NEGATIVE); NITRITE, URINE AUTO NEGATIVE (NEGATIVE); PROTEIN, URINE AUTO 1+ mg/dL (NEGATIVE); RBC, URINE AUTO 1 /HPF (0-3); SPECIFIC GRAVITY URINE AUTO 1.009 (1.002-1.035); SQUAMOUS EPITHELIAL CELL UR AU 1 /HPF (0-6); UROBILINOGEN, URINE AUTO 0.2 mg/dL (0.0-2.0); WBC, URINE AUTO 2 /HPF (0-3)
[2020-02-01 07:03] LABS: CREATININE,RANDOM URINE 61.7 MG/DL; SODIUM,RANDOM URINE 10 MEQ/L; UREA NITROGEN RANDOM URINE 697 MG/DL
[2020-02-01] MEDS: HumaLOG INSULIN (NovoLOG) PER UNIT SC SCH ×3 (08:27→17:36)
[2020-02-01] MEDS: LEVOTHYROXINE 25MCG TABLET (0.025MG) PO SCH (08:28)
[2020-02-01] MEDS: ASPIRIN 81 MG ENTERIC TAB PO SCH (08:28)
[2020-02-01] MEDS: LEVEMIR (INSULIN DETEMIR) 1 UNITS/0.01ML SC SCH ×2 (08:28→20:40)
[2020-02-01] MEDS: DULoxetine 30 MG CAP (CYMBALTA) PO SCH (08:29)
[2020-02-01] MEDS: ATORVASTATIN 20 MG TAB PO SCH (08:29)
[2020-02-01] MEDS: PANTOPRAZOLE 40MG TAB (PROTONIX) PO SCH (08:29)
[2020-02-01] MEDS: SUCRALFATE 1 GM TAB PO SCH ×3 (08:29→20:39)
[2020-02-01] MEDS: GABAPENTIN 100 MG CAP PO SCH ×2 (08:31→20:39)
[2020-02-01] MEDS: CARVedilol 3.125 MG TAB PO SCH ×2 (08:32→20:40)
[2020-02-01] MEDS: amLODIPine 5 MG TAB PO SCH (08:33)
[2020-02-01] MEDS ORDERED: hydroCHLOROthiazide 12.5 MG CAPSULE PO ONE (13:15)
--- NOTE | 2020-02-01 13:21 | REP ---
INDICATION: RLL swelling COMPARISON: None. TECHNIQUE: Real time compression and duplex Doppler interrogation of the right lower extremity deep venous system is performed. FINDINGS: The right common femoral, superficial femoral and popliteal veins are fully compressible with transducer pressure and demonstrate normal spontaneous and phasic flow, without evidence of deep venous thrombosis. IMPRESSION: No evidence of deep venous thrombosis of the right lower extremity femoral popliteal venous system. <Electronically signed by Tan Jaramillo > 02/01/20 [id number]
--- NOTE | 2020-02-01 13:36 | IPNPDOC ---
Text Note Date of Service The patient was seen on 02/01/20. NOTE SUBJECTIVE: Patient interviewed and examined in her hospital room. Patient was found to be resting on her bedside. No events overnight. No finding on telemetry. Patient continues to have right lower extremity pain with palpation. Patient denies any other acute complaints include CP, SOB, abdominal pain or discomfort. OBJECTIVE: Vitals: Please see above. Gen: Awake, alert, in no acute distress, able to answer questions regarding me dical history. HEENT: NC/AT, EOMI, sclera nonicteric, no conjunctival injection or pallor. MMM. CVS: RRR, Murmur c/w aortic stenosis noted RESP: CTA B/L, no WRR ABD: soft, nontender, nondistended, no overlying skin changes. EXT: RLE pain with light palpation. No appreciable swelling, overlying erythema. No lower extremity edema or L calf tenderness, radial/PT pulses 2+ bilaterally. NEURO: CN III-XII grossly intact, PSYCH: Mood and affect are appropriate ASSESSMENT: Mrs. Danielle is a 69-year-old female with cirrhosis, type 2 diabetes mellitus, and CAD status post stent who is here after falling 3 times in the past week and was found to have acute kidney injury. Orthostatics where not able to be done in the ED due to lightheadedness when she stands. She will be monitored on Tele for syncope. In terms of ASAF, urine studies and US renal will be ordered. ASAF may be secondary to medications (diuretics and ARB) or hypertension as blood pressure was elevated. No events on tele noted overnight. Negative orthostats this am. We will start patient on additional HCTZ for persistently elevated BP. Continue to hold home diuretics. RLE US for DVT this am. Pt to work with PT/OT, anticipating D/C tomorrow. PLAN: #Syncope -Recent echocardiogram in October, EF 60%, Grade I diastolic dysfunction, minimal aortic sclerosis and no insufficiency, no additional valvular abnormalities. Also normal CVP and PAP -May be secondary to blood pressure. Blood pressure low at PCP office, but high on presentation. She may have autonomic dysfunction 2/2 to uncontrolled diabetes mellitus. -No telemetry events overnight. No trouble transferring from bed to commode. -Orthostatics WNL this am. -PT/OT evaluation today #Acute kidney injury, resolved Patient reports 1 week history of poor appetite, but has been drinking fluids well Acute kidney injury 2/2 to home torsemide and ARB. Will hold for now. Continue to avoid nephrotoxic agents Optimize blood pressure #RLE tenderness -Pt reports RLE tenderness 2/2 to fibromyalgia -However, given that she is acutely tender. -We will obtain a RLE US out of an abundance of caution. -Low pre-test probability. #Hypertension -Hypertensive in the ED -Holding ARB due to acute kidney injury -Amlodipine, Coreg -SBP has remained elevated overnight. -Will start HCTZ 12.5 mg today, RADHA tomorrow morning. #Cirrhosis Started on a 2 g sodium diet Was on torsemide, hold due to acute kidney injury. -Consider Lasix and spironolactone upon discharge. #Heart failure with preserved ejection fraction Compensated Start on a 2 g sodium diet Was on torsemide, hold due to acute kidney injury #Insulin-dependent diabetes mellitus Poorly controlled. Last HbA1c was in December. HbA1c 12.1% Carbohydrate consistent diet and sliding scale insulin -Outpatient follow-up #CAD status post 1 stent Stable, no active chest pain or EKG findings -Chronically elevated troponin Continue aspirin, statin, and Coreg ARB held due to acute kidney injury #Fibromyalgia Right leg is tender, RLE US per above. Continue toxaphene, gabapentin, and [place] #Hypothyroidism Continue levothyroxine DVT PROPHYLAXIS: SCDs/Seq CODE STATUS: Full Code DISPO: OT/PT Eval VS,Fishbone, I+O VS, Fishbone, I+O Laboratory Tests 01/31/20 16:25 02/01/20 03:55 Vital Signs Date Time Temp Pulse Resp B/P (MAP) Pulse Ox O2 Delivery O2 Flow Rate FiO2 02/01/20 08:33 77 176/68 02/01/20 06:28 17 Room Air 02/01/20 04:32 98.2 94 I&O- Last 24 Hours up to 6 AM 02/01/20 05:59 Intake Total 0 ml Output Total 550 ml Balance -550 ml GME ATTESTATION GME ATTESTATION My faculty preceptor for this patient encounter was physically present during the encounter and was fully available. All aspects of the patient interview, examination, medical decision making process, and medical care plan development were reviewed and approved by the faculty preceptor. The faculty preceptor is aware and concurs with the plan as stated in the body of this note and will attest to such by his/her cosignature. ATTENDING NOTE I, Haroon Hutton, saw and evaluated the patient. I agree with the finding and the plan of care as documented in the resident note. DAHIANA DEL CID DO Feb 01, 2020 13:36 HAROON HUTTON DO Feb 01, 2020 19:26
[2020-02-01 14:00] VITALS: BP 198/88
[2020-02-01 14:32] VITALS: BP 156/72
[2020-02-01] MEDS ORDERED: HumaLOG INSULIN (NovoLOG) PER UNIT SC SCH (21:00)
[2020-02-01 22:00] VITALS: BP 173/69
[2020-02-02 06:00] VITALS: BP 166/54
[2020-02-02 06:46] LABS: HEMATOCRIT 33.1 % (36.0-47.0); HEMOGLOBIN 9.6 g/dl (12.0-15.5); MEAN CORPUSCULAR HEMOGLOBIN 20.9 pg (27.0-33.0); MEAN CORPUSCULAR VOLUME 72.1 fl (80.0-96.0); PLATELET COUNT, AUTOMATED 232 10^3/uL (150-450); RED BLOOD COUNT 4.59 10^6/uL (4.00-5.40); WHITE BLOOD COUNT 8.2 10^3/uL (4.0-10.0)
[2020-02-02 07:15] LABS: BLOOD UREA NITROGEN 17 MG/DL (7-18); CALCIUM LEVEL 8.9 MG/DL (8.8-10.2); CARBON DIOXIDE LEVEL 28 MEQ/L (21-32); CHLORIDE LEVEL 104 MEQ/L (98-107); CREATININE FOR GFR 0.68 MG/DL (0.55-1.30); GLOMERULAR FILTRATION RATE > 60.0 (>45); GLUCOSE, FASTING 169 MG/DL (70-100); POTASSIUM SERUM 3.8 MEQ/L (3.5-5.1); SODIUM LEVEL 138 MEQ/L (136-145)
[2020-02-02] MEDS ORDERED: hydroCHLOROthiazide 12.5 MG CAPSULE PO SCH (09:00)
[2020-02-02] MEDS ORDERED: HYDR12CA PO (09:18)
[2020-02-02] MEDS: HumaLOG INSULIN (NovoLOG) PER UNIT SC SCH ×2 (09:18→12:46)
[2020-02-02] MEDS: LEVEMIR (INSULIN DETEMIR) 1 UNITS/0.01ML SC SCH (09:18)
[2020-02-02] MEDS: SUCRALFATE 1 GM TAB PO SCH (09:19)
[2020-02-02] MEDS: ATORVASTATIN 20 MG TAB PO SCH (09:19)
[2020-02-02] MEDS: ASPIRIN 81 MG ENTERIC TAB PO SCH (09:19)
[2020-02-02] MEDS: LEVOTHYROXINE 25MCG TABLET (0.025MG) PO SCH (09:19)
[2020-02-02] MEDS: DULoxetine 30 MG CAP (CYMBALTA) PO SCH (09:20)
[2020-02-02] MEDS: PANTOPRAZOLE 40MG TAB (PROTONIX) PO SCH (09:20)
[2020-02-02] MEDS: GABAPENTIN 100 MG CAP PO SCH (09:20)
[2020-02-02 09:21] VITALS: BP 181/82
[2020-02-02] MEDS: CARVedilol 3.125 MG TAB PO SCH (09:21)
[2020-02-02] MEDS: amLODIPine 5 MG TAB PO SCH (09:21)
[2020-02-02] MEDS: NORCO, ANEXSIA 5/325MG TABLET (HYDROcodone/ACETAMINOPHEN) PO PRN (09:31)
[2020-02-02] MEDS ORDERED: AMLO1TAB24 PO (09:36)
--- NOTE | 2020-02-02 10:37 | DS.PDOC ---
Discharge Summary General Date of Admission Jan 31, 2020 at 19:04 Date of Discharge 02/02/20 Primary Care Physician: YAYA LACY MD Attending Physician: CARLOS WERNER MD Discharge Summary PROCEDURES PERFORMED DURING STAY: None ADMITTING DIAGNOSES: Syncope Acute kidney injury Cirrhosis Heart failure with preserved ejection fraction CAD, one stent HTN Fibromyalgia Hypothyroid DISCHARGE DIAGNOSES: ASAF, resolved Hypertension Cirrhosis Heart failure with preserved ejection fraction CAD, one stent HTN Fibromyalgia Hypothyroid COMPLICATIONS/CHIEF COMPLAINT: Acute Kidney Injury,Syncope. HISTORY OF PRESENT ILLNESS: Mrs. Danielle is a 69-year-old female with cirrhosis, type 2 diabetes mellitus, and CAD status post stent who is here after falling 3 times in the past week and was found to have acute kidney injury. She was recently here in December for weakness which was secondary to anemia. She did well after discharge, until last . Denies any recent changes to medications, but reports poor appetite. She tells me she does drink a lot of water. But on , Saturday, and today (Saturday), she stood up to go to the bathroom and then suddenly felt lightheaded and fell. Since it happened again today, she came to the ED. When she stood up she denied any chest pain, short of breath, or palpitations. While in the ED, CT head was negative and x-ray ribs demonstrated right eighth and ninth rib fractures. Despite this finding, no chest pain. Workup was significant for elevated BUN and creatinine. She is given normal saline and admission was requested. Patient was admitted for syncope and acute kidney injury. HOSPITAL COURSE: She was admitted to the unit and placed on telemetry. Her home torsemide and ARB were withheld on account of her acute kidney injury. Patient continued to demonstrate elevated blood pressure. Amlodipine 5 mg was started. The morning of 02/01/20, patient continued to complain of right lower leg pain and discomfort, she did report this is chronic, however out of an abundance of caution, a lower extremity ultrasound was ordered and found to be negative for DVT. Patient attributes this pain discomfort or fibromyalgia which is been relatively chronic last number of years. BUN and creatinine continue to improve. No further episodes of syncope or vertigo. Patient received PT evaluation and was cleared for discharge home. Unfortunately, patient's blood pressure continued to require additional control and hydrochlorothiazide was added to her regimen. The morning of discharge, patient's kidney function returned to normal limits. She reported being at her baseline state of health. During her hospital stay, patient did not demonstrate any appreciable swelling of her lower extremities. This echocardiogram was reviewed. Plan to hold patient's torsemide until she has met with her outpatient provider for further evaluation of her clinical picture renal function. She'll be discharged on amlodipine, losartan and hydrochlorothiazide for her blood pressure. She is to continue her beta jennifer for her cardiovascular disease. PCP follow-up in 5-7 days. DISCHARGE MEDICATIONS: Please see below. ALLERGIES: Please see below. PHYSICAL EXAMINATION ON DISCHARGE: VITAL SIGNS: Please see below. GENERAL: Patient was interviewed and examined in her hospital room. Patient was found to be seated in her bedside chair. No acute distress, conversant. HEENT: Normal cephalic, atraumatic, EOMI, moist mucous membranes, face is symmetric NECK: Trachea midline, no JVD appreciated CARDIOVASCULAR EXAMINATION: Regular rate and rhythm, murmur of aortic stenosis appreciated. Unchanged from prior examination. RESPIRATORY EXAMINATION: Clear to auscultation bilaterally. ABDOMINAL EXAMINATION: Soft, nontender, nondistended no guarding or rigidity. No appreciable organomegaly. EXTREMITIES: Patient continues to demonstrate significant hyperalgesia of the RLE. Appreciable swelling, overlying skin changes. She is able to move all extremities equally. Peripheral pulses 2+ in both radial and posterior tibial pulses. SKIN: No skin changes, bruising or rashes noted. NEUROLOGICAL EXAMINATION: Cranial nerves III through XII are grossly intact. No dysarthria or dysphasia. PSYCHIATRIC EXAMINATION: Mood and affect are appropriate LABORATORY DATA: Please see below. IMAGING: Rib x-ray (01/31/20): None fractures of the right lateral eighth and ninth ribs. Mildly prominent heart. Otherwise negative. Head CT (01/31/20): Right parietal scalp hematoma. No skull fracture or intracranial injury. No acute intracranial abnormality. Renal ultrasound (01/31/20): Normal ultrasound of the kidneys and bladder. No hydronephrosis. Right lower extremity ultrasound (02/01/20): No evidence of deep venous thrombosis of the right lower extremity femoral popliteal venous system. PROGNOSIS: Fair ACTIVITY: As tolerated DIET: Consistent Carb Diet DISPOSITION: Home with self-care DISCHARGE INSTRUCTIONS: Please follow-up with your PCP in 5-7 days. Please stop taking Torsemide. You have been off this medication throughout your hospitalization and your swelling has remained stable. Please see your PCP before restarting. Please restart Losartan. Please start newly prescribed HCTZ and amlodipine. Please see PCP and discuss ways to improve control of your diabetes. Please also discuss your diagnosis of cirrhosis with your PCP, as he may require further workup or changes to medication regimen. Please return to the ED should your symptoms return. Thank you for allowing us to participate in your care. Please continue taking your Carvedilol as scheduled. DISCHARGE CONDITION: Stable TIME SPENT ON DISCHARGE: Greater than 45 minutes. Vital Signs/I&Os Vital Signs Date Time Temp Pulse Resp B/P (MAP) Pulse Ox O2 Delivery O2 Flow Rate FiO2 02/02/20 06:00 96.9 83 16 166/54 (91) 96 Room Air I&O- Last 24 Hours up to 6 AM 02/02/20 05:59 Intake Total 2640 ml Output Total 4500 ml Balance -1860 ml Laboratory Data Labs 24H Laboratory Tests 2 02/01/20 11:58: Bedside Glucose (Misc Panel) 456H 02/01/20 16:45: Bedside Glucose (Misc Panel) 293H 02/01/20 20:10: Bedside Glucose (Misc Panel) 223H 02/02/20 06:18: Nucleated Red Blood Cells % (auto) 0.0, Anion Gap 6L, Glomerular Filtration Rate > 60.0, Calcium Level 8.9 CBC/BMP Laboratory Tests 02/02/20 06:18 FSBS Laboratory Tests Test 02/01/20 11:58 02/01/20 16:45 02/01/20 20:10 Range/Units Bedside Glucose (Misc Panel) 456 293 223 80-115 MG/DL Discharge Medications Scheduled Amlodipine Besylate (Amlodipine Besylate) 5 Mg Tablet, 5 MG PO DAILY Aspirin (Aspirin EC) 81 Mg Tablet.dr, 81 MG PO DAILY, (Reported) Atorvastatin Calcium (Atorvastatin Calcium) 20 Mg Tab, 20 MG PO DAILY, (Reported) Carvedilol (Carvedilol) 3.125 Mg Tablet, 3.125 MG PO BID, (Reported) Dapagliflozin Propanediol (Farxiga) 10 Mg Tab, 5 MG PO DAILY, (Reported) Duloxetine Hcl (Duloxetine HCl) 30 Mg Capsule.dr, 30 MG PO DAILY, (Reported) Gabapentin (Gabapentin) 100 Mg Capsule, 100 MG PO BID, (Reported) Hydrochlorothiazide (Hydrochlorothiazide) 12.5 Mg Capsule, 12.5 MG PO DAILY Insulin Detemir (Levemir) 100 Unit/1 Ml Vial, 25 UNITS SC BID, (Reported) Insulin Human Lispro (Novolog) 100 Unit/1 Ml Vial, 1 DOSE SC ASDIRECTED, (Reported) SLIDING SCALE Levothyroxine Sodium (Synthroid) 25 Mcg Tab, 25 MCG PO DAILY, (Reported) Losartan Potassium (Losartan Potassium) 100 Mg Tab, 100 MG PO DAILY, (Reported) Metformin HCl (Metformin HCl ER) 500 Mg Tab.er.24h, 1,000 MG PO BID, (Reported) Pantoprazole Sodium (Pantoprazole Sodium) 40 Mg Tablet.dr, 40 MG PO DAILY, (Reported) Potassium Chloride (Potassium Chloride) 10 Meq Tab.er.prt, 10 MEQ PO BID, (Reported) Sucralfate (Sucralfate) 1 Gm Tablet, 1 GM PO TID, (Reported) Tizanidine HCl (Tizanidine HCl) 4 Mg Cap, 4 MG PO BID, (Reported) AFTERNOON AND EVENING Scheduled PRN Acetaminophen (Acetaminophen) 325 Mg Tablet, 650 MG PO Q8HP PRN for PAIN 1-3 OR FEVER Hydrocodone/Acetaminophen (Hydrocodone-Acetamin 5-325 mg) 1 Each Tablet, 1 TAB PO QHS PRN for PAIN, (Reported) Menthol (Biofreeze) 118 Ml Gel..ml., 1 APLCT TOP for PAIN, (Reported) APPLIES TO RIGHT LEG AND HIP Allergies Coded Allergies: gatifloxacin (Verified Allergy, Mild, 01/08/19) GME ATTESTATION GME ATTESTATION My faculty preceptor for this patient encounter was physically present during the encounter and was fully available. All aspects of the patient interview, examination, medical decision making process, and medical care plan development were reviewed and approved by the faculty preceptor. The faculty preceptor is aware and concurs with the plan as stated in the body of this note and will attest to such by his/her cosignature. ATTENDING NOTE Attending attestation: Patient seen and examined independently. Agree with resident's note. DAHIANA DEL CID DO Feb 02, 2020 10:37 CARLOS WERNER MD Feb 03, 2020 06:48
[2020-02-04] MEDS ORDERED: ZOFR4TAB16 PO (14:07)
[2020-02-04] MEDS ORDERED: FERR325T3 PO (14:07)
== END 2020-02-02 14:06 | disposition home health service (06) | DRG 683 ==
LOC: M ED 15:36 → EDBD 15:36 → M ED INP 19:04 → M MSPAV 02-01 04:35
PROVIDERS: ADMIT Internal Medicine; ATTEND Internal Medicine
DX: N17.9 Acute kidney failure, unspecified (principal); I50.32 Chronic diastolic (congestive) heart failure; I11.0 Hypertensive heart disease with heart failure; E11.43 Type 2 diabetes mellitus with diabetic autonomic (poly)neuropathy; K74.60 Unspecified cirrhosis of liver; I25.10 Atherosclerotic heart disease of native coronary artery without angina pectoris; I25.2 Old myocardial infarction; E78.5 Hyperlipidemia, unspecified; E53.8 Deficiency of other specified B group vitamins; E03.9 Hypothyroidism, unspecified; M79.7 Fibromyalgia; D64.9 Anemia, unspecified; Z87.891 Personal history of nicotine dependence; Z20.828 Contact with and (suspected) exposure to other viral communicable diseases; Z79.82 Long term (current) use of aspirin; Z95.5 Presence of coronary angioplasty implant and graft; Z79.4 Long term (current) use of insulin; Z79.899 Other long term (current) drug therapy; Z88.1 Allergy status to other antibiotic agents

== ENCOUNTER → 2020-02-09 | Outpatient (REF) | payer OTHER ==
[~2020-02-09] MED LIST changes: +HYDR12CA PO; +SUCR1TAB56 PO; +ZOFR4TAB16 PO
[2020-02-09 15:30] LABS: HEMATOCRIT 36.7 % (36.0-47.0); HEMOGLOBIN 11.1 g/dl (12.0-15.5); MEAN CORPUSCULAR HEMOGLOBIN 22.4 pg (27.0-33.0); MEAN CORPUSCULAR HGB CONC 30.2 g/dl (32.0-36.5); PLATELET COUNT, AUTOMATED 305 10^3/uL (150-450); RED BLOOD COUNT 4.96 10^6/uL (4.00-5.40); WHITE BLOOD COUNT 8.6 10^3/uL (4.0-10.0)
[2020-02-09 15:58] LABS: CALCIUM LEVEL 10.3 MG/DL (8.8-10.2); GLOMERULAR FILTRATION RATE 58.7 (>45); POTASSIUM SERUM 4.1 MEQ/L (3.5-5.1)
== END ==
LOC: M SFHCPLAZ 14:15
PROVIDERS: ATTEND Family Medicine
DX: D50.9 Iron deficiency anemia, unspecified (principal); I10 Essential (primary) hypertension

== ENCOUNTER → 2020-02-12 | Outpatient (CLI) | payer OTHER | LOC: M LABSMTC 10:19 | PROVIDERS: ATTEND Anesthesiology | DX: Z01.812 Encounter for preprocedural laboratory examination (principal); Z11.59 Encounter for screening for other viral diseases ==

== ENCOUNTER 2020-02-17 06:41 | Day surgery (SDC) | payer OTHER ==
[~2020-02-17] VITALS: Ht 162.6 cm; Wt 84.8 kg
[2020-02-17] MEDS ORDERED: NS 1,000 ML IV ONE (07:00)
[2020-02-17] MEDS ORDERED: LIDOCAINE 2% 100MG/5ML SDV (FOR ANES.) As Ordered ONE (07:28)
[2020-02-17] MEDS ORDERED: propofoL 200 MG/20 ML VIAL As Ordered ONE (07:28)
--- NOTE | 2020-02-17 07:48 | ROOR ---
Patient Name: Juju Danielle Procedure Date: 02/17/2020 7:29 AM Date of : 1950 Age: 70 Room: [facility] Gender: Female Note Status: Finalized Procedure: Upper GI endoscopy Indications: Iron deficiency anemia Providers: DO Myron Gracia MD: Es Mei MD Requesting Provider: Medicines: Propofol per Anesthesia Complications: No immediate complications. Procedure: Pre-Anesthesia Assessment: - Prior to the procedure, a History and Physical was performed, and patient medications and allergies were reviewed. The patient is competent. The risks and benefits of the procedure and the sedation options and risks were discussed with the patient. All questions were answered and informed consent was obtained. Patient identification and proposed procedure were verified by the physician, the nurse, the artificial inseminator and the industrial maintenance technician in the endoscopy suite. Mental Status Examination: normal. Airway Examination: normal oropharyngeal airway and neck mobility. Respiratory Examination: clear to auscultation. CV Examination: normal. Prophylactic Antibiotics: The patient does not require prophylactic antibiotics. Prior Anticoagulants: The patient has taken no previous anticoagulant or antiplatelet agents except for aspirin. ASA Grade Assessment: III - A patient with severe systemic disease. After reviewing the risks and benefits, the patient was deemed in satisfactory condition to undergo the procedure. The anesthesia plan was to use monitored anesthesia care (MAC). Immediately prior to administration of medications, the patient was re-assessed for adequacy to receive sedatives. The heart rate, respiratory rate, oxygen saturations, blood pressure, adequacy of pulmonary ventilation, and response to care were monitored throughout the procedure. The physical status of the patient was re-assessed after the procedure. The Endoscope was introduced through the mouth, and advanced to the prepyloric region, stomach. The upper GI endoscopy was accomplished without difficulty. The patient tolerated the procedure well. Findings: A medium amount of a phytobezoar was found in the entire examined stomach. Impression: - A medium amount of a phytobezoar in the stomach. - No specimens collected. Recommendation: - Patient has a contact number available for emergencies. The signs and symptoms of potential delayed complications were discussed with the patient. Return to normal activities tomorrow. Written discharge instructions were provided to the patient. - Repeat upper endoscopy in 1 month because the preparation was poor. - Return to my office in 2 weeks. Procedure Code(s): --- Professional --- 57255, 52, Esophagogastroduodenoscopy, flexible, transoral; diagnostic, including collection of specimen(s) by brushing or washing, when performed (separate procedure) Diagnosis Code(s): --- Professional --- T18.2XXA, Foreign body in stomach, initial encounter D50.9, Iron deficiency anemia, unspecified CPT copyright 2019 [employer]. All rights reserved. The codes documented in this report are preliminary and upon gamewell operator review may be revised to meet current compliance requirements. Tan Toney DO 02/17/2020 7:48:19 AM Electronically signed by Tan Toney DO Number of Addenda: 0 Note Initiated On: 02/17/2020 7:29 AM Estimated Blood Loss: Estimated blood loss: none.
[2020-02-17 08:14] VITALS: BP 153/70
== END 2020-02-17 08:19 | disposition home or self-care (01) ==
LOC: M OPP 06:41
PROVIDERS: ATTEND Surgery
DX: T18.2XXA Foreign body in stomach, initial encounter (principal); D50.9 Iron deficiency anemia, unspecified; E11.9 Type 2 diabetes mellitus without complications; E03.9 Hypothyroidism, unspecified; M79.7 Fibromyalgia; I50.9 Heart failure, unspecified; I25.2 Old myocardial infarction; Z79.82 Long term (current) use of aspirin; Z79.84 Long term (current) use of oral hypoglycemic drugs; Z79.891 Long term (current) use of opiate analgesic; Z79.899 Other long term (current) drug therapy; Z88.1 Allergy status to other antibiotic agents; Z95.5 Presence of coronary angioplasty implant and graft

== ENCOUNTER → 2020-02-23 | Outpatient (REF) | payer OTHER ==
[2020-02-23 13:41] LABS: BLOOD UREA NITROGEN 12 MG/DL (7-18); CALCIUM LEVEL 8.8 MG/DL (8.8-10.2); CARBON DIOXIDE LEVEL 21 MEQ/L (21-32); CHLORIDE LEVEL 112 MEQ/L (98-107); CREATININE FOR GFR 0.62 MG/DL (0.55-1.30); GLOMERULAR FILTRATION RATE > 60.0 (>45); GLUCOSE, FASTING 173 MG/DL (70-100); POTASSIUM SERUM 4.5 MEQ/L (3.5-5.1); SODIUM LEVEL 141 MEQ/L (136-145)
== END ==
LOC: M SFHCPLAZ 12:11
PROVIDERS: ATTEND Nurse Practitioner Family
DX: R60.0 Localized edema (principal)

== ENCOUNTER → 2020-02-23 | Outpatient (CLI) | payer OTHER ==
--- NOTE | 2020-02-23 12:24 | REP ---
INDICATION: R60.0 EDEMA RT LOWER EXTREMITY,R/O DVT COMPARISON: None. TECHNIQUE: Jaramillo scale and color Doppler evaluation of the right lower extremity using linear high frequency transducer. FINDINGS: Ultrasound examination of the right lower extremity deep venous structures from the common femoral vein to the popliteal vein demonstrates normal compressibility flow and wave patterns in response to respiration and augmentation. There is no evidence for deep venous thrombosis. Fluid collection in the popliteal fossa measuring 3.7 x 1.1 x 0.5 cm consistent with Link's cyst. IMPRESSION: No evidence for deep venous thrombosis. Link's cyst in the popliteal fossa. <Electronically signed by Zbigniew Davis > 02/23/20 2934
== END ==
LOC: M WHC 11:43
PROVIDERS: ATTEND Nurse Practitioner Family
DX: M71.21 Synovial cyst of popliteal space [Baker], right knee (principal); R60.0 Localized edema
CPT/HCPCS: 36415; 80048; 84443; 85379; 93971; G0463

== ENCOUNTER → 2020-02-24 | Outpatient (CLI) | payer OTHER ==
[~2020-02-24] MED LIST changes: +ISOVUE-370 76% 100ML VIAL As Ordered ONE
--- NOTE | 2020-02-24 12:13 | REP ---
INDICATION: SOB ELEVATED D DIMER ? PE. COMPARISON: Comparison CT pulmonary angiogram June 2912/2018.. TECHNIQUE: Contrast dose: 75 ML of Isovue [address] technique: Helical scanning is acquired and overlapping 1.5 mm and contiguous 3 mm axial images are reformatted. In addition, maximum intensity projection and multiplanar re-formation images are generated in sagittal and coronal imaging projections. FINDINGS: There is good opacification in the pulmonary arterial tree. There is no evidence of vessel cut off or filling defect to suggest pulmonary embolus. Homogeneous opacity is seen in the thoracic aorta. There is no evidence of aneurysm or dissection. Lung window settings demonstrate small bilateral pleural effusions. Hazy alveolar opacity is seen question CHF pattern. Cardiomegaly is observed. Vascular calcification is seen in the distribution of the left coronary artery. No significant pericardial effusion is seen. No hilar or mediastinal mass or adenopathy is observed. In the upper abdomen, the spleen is somewhat prominent measuring greater than 13 cm in greatest craniocaudal span. There is a small accessory splenule. Normal adrenal glands are seen. Clips are noted post cholecystectomy. IMPRESSION: No CT evidence of pulmonary embolus. Cardiomegaly and small bilateral pleural effusions and mild alveolar parenchymal opacity consistent with CHF. Coronary artery vascular calcification. Mild splenomegaly suspected. <Electronically signed by Jackson Ruiz > 02/24/20 5502
== END ==
LOC: M RAD 11:20
PROVIDERS: ATTEND Nurse Practitioner Family
DX: R06.02 Shortness of breath (principal)
CPT/HCPCS: 71275; Q9967

== ENCOUNTER → 2020-03-08 | Outpatient (REF) | payer OTHER ==
[~2020-03-08] MED LIST changes: -AMIT25TA PO; +AMIT25TA17 PO; -ISOVUE-370 76% 100ML VIAL As Ordered ONE
[2020-03-08 11:10] LABS: BLOOD UREA NITROGEN 29 MG/DL (7-18); CALCIUM LEVEL 9.2 MG/DL (8.8-10.2); CARBON DIOXIDE LEVEL 27 MEQ/L (21-32); CHLORIDE LEVEL 106 MEQ/L (98-107); CREATININE FOR GFR 0.98 MG/DL (0.55-1.30); GLOMERULAR FILTRATION RATE > 60.0 (>45); GLUCOSE, FASTING 148 MG/DL (70-100); POTASSIUM SERUM 4.4 MEQ/L (3.5-5.1); SODIUM LEVEL 141 MEQ/L (136-145)
== END ==
LOC: M PLALAB 08:26
PROVIDERS: ATTEND Family Medicine
DX: R60.0 Localized edema (principal)
CPT/HCPCS: 36415; 80048; G0463

== ENCOUNTER → 2020-03-17 | Outpatient (CLI) | payer OTHER ==
[~2020-03-17] MED LIST changes: +ISOS1TAB35; +ISOS1TAB35 PO; -ISOS30TA4; -ISOS30TA4 PO; -LISI-542 PO; +LISI-898 PO
--- NOTE | 2020-03-17 14:36 | REP ---
INDICATION: GASTRIOARESUS. COMPARISON: None. TECHNIQUE/RADIOTRACER AND DOSE: 1.06 mCi of Technetium-99m sulfur colloid was ingested in two scrambled eggs and 6 ounces of water and sequential anterior and posterior images are acquired for an 89-minute imaging observation period. Regions of interest are drawn around the stomach to plot gastric emptying. FINDINGS: Expected T1/2 is 90 minutes. Seventy-seven% emptying is observed in this patient during the 89-minute imaging observation period, for a calculated T1/2 in this patient of 56 minutes. IMPRESSION: Normal gastric emptying. <Electronically signed by Jackson Ruiz > 03/17/20 0378
== END ==
LOC: M RAD 12:26
PROVIDERS: ATTEND Surgery
DX: K31.84 Gastroparesis (principal)
CPT/HCPCS: 78264; A9541

== ENCOUNTER → 2020-04-05 | Outpatient (REF) | payer OTHER ==
[2020-04-05 14:30] LABS: HEMOGLOBIN A1c 8.4 %
== END ==
LOC: M SFHCPLAZ 10:23
PROVIDERS: ATTEND Family Medicine
DX: E11.8 Type 2 diabetes mellitus with unspecified complications (principal)

== ENCOUNTER → 2020-05-05 | Outpatient (REF) | payer OTHER ==
[~2020-05-05] MED LIST changes: +ASPI-569 PO; -ASPI81TAEC PO
[2020-05-05 17:32] LABS: BLOOD UREA NITROGEN 22 MG/DL (7-18); CALCIUM LEVEL 9.5 MG/DL (8.8-10.2); CARBON DIOXIDE LEVEL 29 MEQ/L (21-32); CHLORIDE LEVEL 106 MEQ/L (98-107); CREATININE FOR GFR 0.74 MG/DL (0.55-1.30); GLOMERULAR FILTRATION RATE > 60.0 (>45); GLUCOSE, FASTING 204 MG/DL (70-100); POTASSIUM SERUM 3.6 MEQ/L (3.5-5.1); SODIUM LEVEL 142 MEQ/L (136-145)
== END ==
LOC: M PLALAB 16:49 → M SFHCPLAZ 16:49
PROVIDERS: ATTEND Family Medicine
DX: I10 Essential (primary) hypertension (principal)

== ENCOUNTER → 2020-05-12 | Outpatient (CLI) | payer OTHER ==
[~2020-05-12] MED LIST changes: +AMLO2.5T3 PO; +JARD1TAB PO; +LOSA50TA88 PO
== END ==
LOC: M LABSMTC 09:52
PROVIDERS: ATTEND Anesthesiology
DX: Z01.812 Encounter for preprocedural laboratory examination (principal); Z20.822 Contact with and (suspected) exposure to COVID-19
CPT/HCPCS: G0463; U0003

== ENCOUNTER 2020-05-15 05:23 | Observation (INO) | payer OTHER ==
[~2020-05-15] VITALS: Ht 165.1 cm; Wt 89.6 kg
[~2020-05-15 05:23] MED LIST changes: -AMLO2.5T3 PO; -JARD1TAB PO; -LOSA50TA88 PO
[2020-05-15 05:50] LABS: BASO # 0.1 10^3/uL (0.0-0.2); BASO % 1.5 % (0.0-1.0); EOS # 0.7 10^3/uL (0.0-0.5); EOS % 8.6 % (0.0-3.0); HEMATOCRIT 41.6 % (36.0-47.0); HEMOGLOBIN 13.7 g/dl (12.0-15.5); LYMPH # 3.1 10^3/uL (1.5-5.0); LYMPH % 38.3 % (24.0-44.0); MEAN CORPUSCULAR HEMOGLOBIN 27.8 pg (27.0-33.0); MEAN CORPUSCULAR HGB CONC 32.9 g/dl (32.0-36.5); MEAN CORPUSCULAR VOLUME 84.4 fl (80.0-96.0); MONO % 12.3 % (2.0-8.0); NEUTROPHILS # 3.1 10^3/uL (1.5-8.5); NEUTROPHILS % 38.8 % (36.0-66.0); PLATELET COUNT, AUTOMATED 183 10^3/uL (150-450); RED BLOOD COUNT 4.93 10^6/uL (4.00-5.40)
[2020-05-15 06:01] LABS: INR 1.05; PROTHROMBIN TIME 13.9 SECONDS (12.5-14.3)
[2020-05-15 06:29] LABS: ALBUMIN 2.9 GM/DL (3.2-5.2); ALT/SGPT 26 U/L (12-78); BILIRUBIN,DIRECT 0.2 MG/DL (0.0-0.2); BILIRUBIN,TOTAL 0.4 MG/DL (0.2-1.0); BLOOD UREA NITROGEN 22 MG/DL (7-18); CARBON DIOXIDE LEVEL 24 MEQ/L (21-32); CHLORIDE LEVEL 105 MEQ/L (98-107); CK-MB VALUE MASS 2.3 NG/ML (<3.6); CPK CREATINE PHOSPHOKINASE 85 U/L (26-192); CREATININE FOR GFR 1.12 MG/DL (0.55-1.30); ETHYL ALCOHOL (ETHANOL) < 0.003 % (0.000-0.010); GLOMERULAR FILTRATION RATE 51.5 (>45); GLUCOSE, FASTING 120 MG/DL (70-100); LIPASE 118 U/L (73-393); MB/CK RELATIVE INDEX 2.71 (< OR =4); SODIUM LEVEL 140 MEQ/L (136-145); TOTAL PROTEIN 6.8 GM/DL (6.4-8.2); TROPONIN I 0.25 NG/ML (< 0.10)
[2020-05-15] MEDS ORDERED: ISOVUE-370 76% 100ML VIAL As Ordered ONE (06:36)
--- NOTE | 2020-05-15 07:18 | REP ---
INDICATION: CHEST PAIN. COMPARISON: Right rib series dated 01/31/2020. TECHNIQUE: Portable AP chest with the patient sitting. FINDINGS: The lung lloyd are clear. Cardiac size is upper normal, unchanged. The matheus, mediastinum and skeletal structures are unchanged. IMPRESSION: There are no acute cardiopulmonary findings. <Electronically signed by Tan Vilchis > 05/15/20 0714
[2020-05-15] MEDS ORDERED: NS 1,000 ML IV ONE (07:40)
--- NOTE | 2020-05-15 08:23 | ECGEPIP ---
[facility] - ED Test Date: 2020-05-15 Pat Name: MARIANA SMITH Department: Room: - Gender: Female Narrow Gauge Operator: raji zepeda : 1950 Requested By: SREEDHAR Ayoub Order Number: [id number] Reading MD: Antonina Hazel Measurements Intervals Seltzer Rate: 50 P: 22 ME: 170 QRS: -24 QRSD: 104 T: 135 QT: 498 QTc: 454 Interpretive Statements Sinus bradycardia Minimal voltage criteria for LVH, may be normal variant ( Miah product ) Possible Anterior infarct , age undetermined ST & T wave abnormality, consider lateral ischemia Electronically Signed on 05-15-2020 8:22:44 EDT by Antonina Hazel
--- NOTE | 2020-05-15 08:41 | REPVR ---
PROCEDURE INFORMATION: Exam: CT Head Without Contrast Exam date and time: 05/15/2020 8:05 AM Age: 70 years old Clinical indication: Injury or trauma; Fall; Blunt trauma (contusions or hematomas); Consciousness not specified; Additional info: Dizziness and fall TECHNIQUE: Imaging protocol: Computed tomography of the head without contrast. Radiation optimization: All CT scans at this facility use at least one of these dose optimization techniques: automated exposure control; mA and/or kV adjustment per patient size (includes targeted exams where dose is matched to clinical indication); or iterative reconstruction. COMPARISON: CT Head without contrast 01/31/2020 4:24 PM FINDINGS: Brain: No acute intracerebral abnormality or injury. No acute infarct or intracerebral bleed. Normal brain for age. No significant interval change since the previous head CT from 01/31/2020. Ellie Stroke Program Early CT Score (ASPECTS score) = 10. Cerebral ventricles: No ventriculomegaly. Bones/joints: See "Soft tissues" finding. Paranasal sinuses: Visualized sinuses are unremarkable. No fluid levels. Mastoid air cells: Visualized mastoid air cells are well aerated. Soft tissues: A small questionable scalp contusion is seen in the superior right parietal area on image 24 of series 202. No acute underlying fractures of the calvarium, however. IMPRESSION: 1. A small questionable scalp contusion is seen in the superior right parietal area on image 24 of series 202. No acute underlying fractures of the calvarium, however. 2. No acute intracerebral abnormality or injury. No acute infarct or intracerebral bleed. 3. Normal brain for age. No significant interval change since the previous head CT from 01/31/2020. 4. Ellie Stroke Program Early CT Score (ASPECTS score) = 10. Electronically signed by: Daquan Puckett On 05/15/2020 08:41:23 AM
[2020-05-15 08:44] LABS: AMPHETAMINES LEVEL URINE NEGATIVE (NEGATIVE); BARBITURATES URINE NEGATIVE (NEGATIVE); BENZODIAZEPINES URINE NEGATIVE (NEGATIVE); CANNABINOIDS URINE NEGATIVE (NEGATIVE); COCAINE METABOLITE URINE NEGATIVE (NEGATIVE); METHADONE URINE NEGATIVE (NEGATIVE); OPIATES URINE POSITIVE (NEGATIVE); PHENCYCLIDINE URINE NEGATIVE (NEGATIVE)
--- NOTE | 2020-05-15 09:00 | REP ---
INDICATION: thoracic pain after fall. COMPARISON: Chest CT dated 02/24/2020. TECHNIQUE: Chest CT with IV contrast. FINDINGS: There is no pneumothorax, hemothorax or pulmonary contusion. The small bilateral pleural effusions identified previously have resolved. There is a minor zone of atelectasis peripherally posteriorly in the lingula. The thoracic aorta is unremarkable. There is no dissection. There is no mediastinal hematoma. There is calcified atheroma in the coronary arteries. Cardiac size is enlarged. There is a small pericardial effusion measuring up to 8 mm depth, is a change from the prior study. There is a nondisplaced fracture posterolaterally in the right 9th rib as an interval change. No fractures are identified in the visualized portions of the clavicles and scapula. No sternal fracture. No vertebral fractures are identified. IMPRESSION: Nondisplaced right 9th rib fracture posterolaterally. No pneumothorax, hemothorax or pulmonary contusion. No other fractures. No mediastinal hematoma. Small pericardial effusion measuring up to 8 mm in depth anteriorly, not present previously. <Electronically signed by Tan Vilchis > 05/15/20 0856
--- NOTE | 2020-05-15 09:05 | REP ---
INDICATION: fall. COMPARISON: Right hip series dated 10/22/2019. TECHNIQUE: AP pelvis single view. Right hip two views Left hip two views FINDINGS: AP pelvis: No pelvic fractures are identified. The sacroiliac articulations are unremarkable. There are no calcifications. Negative AP pelvis. Right hip: Mineralization and joint spaces are normal. There is no fracture or dislocation. There are no calcifications or foreign bodies. There is no fracture or dislocation. There is no change from the prior study. Left hip: Mineralization and joint spaces are normal. There is no fracture or dislocation. There are no calcifications or foreign bodies. There is no fracture or dislocation. IMPRESSION: Negative AP pelvis. Negative right hip. Negative left hip. <Electronically signed by Tan Vilchis > 05/15/20 0901
[2020-05-15 10:14] LABS: CK-MB VALUE MASS 2.3 NG/ML (<3.6); MB/CK RELATIVE INDEX 2.74 (< OR =4); TROPONIN I 0.21 NG/ML (< 0.10)
[2020-05-15 12:14] LABS: RSV AMPLIFICATION NEGATIVE (NEGATIVE)
[2020-05-15] MEDS ORDERED: NORCO, ANEXSIA 5/325MG TABLET (HYDROcodone/ACETAMINOPHEN) PO ONE (12:30)
[2020-05-15] MEDS ORDERED: JARD1TAB PO (12:50)
[2020-05-15] MEDS ORDERED: CARV6.25 PO (12:50)
[2020-05-15] MEDS ORDERED: AMLO2.5T3 PO (12:50)
[2020-05-15] MEDS ORDERED: TORS20TA2 PO (12:50)
[2020-05-15] MEDS ORDERED: MAALOX 30 ML SUSP *UDC PO PRN (13:05)
[2020-05-15] MEDS ORDERED: MOM 30ML SUSPENSION UDC PO PRN (13:05)
[2020-05-15] MEDS ORDERED: **hydrALAZINE HCL** 25 MG TAB PO ONE (13:50)
[2020-05-15] MEDS ORDERED: NORCO, ANEXSIA 5/325MG TABLET (HYDROcodone/ACETAMINOPHEN) PO PRN (13:55)
[2020-05-15 14:00] VITALS: BP 178/80
[2020-05-15] MEDS ORDERED: GLUCAGON INJ 1MG VIAL SC PRN (14:40)
[2020-05-15] MEDS ORDERED: DEXTROSE 50% 50 ML SYRINGE IV PRN (14:40)
[2020-05-15] MEDS ORDERED: GLUCOSE 4GM CHEW TABLET PO PRN (14:40)
[2020-05-15] MEDS: DULoxetine 30 MG CAP (CYMBALTA) PO SCH (14:42)
[2020-05-15] MEDS: PANTOPRAZOLE 40MG TAB (PROTONIX) PO SCH (14:42)
[2020-05-15] MEDS: ASPIRIN 81MG ENTERIC TABLET PO SCH (14:44)
--- NOTE | 2020-05-15 14:51 | HPEPDOC ---
General Date of Admission 05/15/20 Date of Service: May 15, 2020 Chief Complaint The patient is a 70-year-old female admitted with a reason for visit of FALL. Source: Patient, RN/MD History of Present Illness 70 year old female with multiple medical comorbidities on multiple medication including chronic opiates for chronic pain, IDDM2 c/b peripheral neuropathy, Bilateral carpal tunnel, Lumber spinal stenosis with radiculopathy, fibromyalgia affecting the right leg, HTN, CAD s/p PCI, hypothyroid, HLD, diastolic CHF, stood up walked to the bathroom she felt dizzy and fell on her left side. She dragged herself to the bathroom and was able to drag herself to the commode. She continued to feel dizzy so she pulled the string for help. She walked to the living room continued to feel dizzy so sat down in her electric wheel chair. She was brought to the ED for evaluation. In the ED her orthostatic vitals were positive, Her troponin were elevated which on review of chart shows are chronically elevated and at baseline was admitted for Syncope. Trauma work up in ED was negative except for a non displaced right 9th rib fracture though patient reports that she fell on her left side. She does complain of left hip pain and left lower chest pain. the pains are dull aching in nature about 4/10 in intensity. She also complains of pain in the right leg which is chronic about 8/10 in intensity. The pain is burning in nature and the leg is always very sensitive to touch. The right leg is always swollen compared to left. And when she walks she reports that her right legs feels thick skinned, big and heavy like an "elephant leg". CT chest: Nondisplaced right 9th rib fracture posterolaterally. No pneumothorax, hemothorax or pulmonary contusion. No other fractures. No mediastinal hematoma. Small pericardial effusion measuring up to 8 mm in depth anteriorly, not present previously. Home Medications Scheduled Amlodipine Besylate (Amlodipine Besylate) 2.5 Mg Tablet, 2.5 MG PO DAILY, (Reported) Aspirin (Aspirin EC) 81 Mg Tablet.dr, 81 MG PO DAILY, (Reported) Atorvastatin Calcium (Atorvastatin Calcium) 20 Mg Tab, 20 MG PO DAILY, (Reported) Carvedilol (Carvedilol) 6.25 Mg Tablet, 6.25 MG PO BID, (Reported) Duloxetine Hcl (Duloxetine HCl) 30 Mg Capsule.dr, 30 MG PO DAILY, (Reported) Empagliflozin (Jardiance) 10 Mg Tablet, 10 MG PO DAILY, (Reported) Ferrous Sulfate (Ferrous Sulfate) 325 Mg Tablet.dr, 325 MG PO BID, (Reported) Gabapentin (Gabapentin) 100 Mg Capsule, 100 MG PO BID, (Reported) Insulin Detemir (Levemir) 100 Unit/1 Ml Vial, 25 UNITS SC BID, (Reported) Insulin Human Lispro (Novolog) 100 Unit/1 Ml Vial, 1 DOSE SC ASDIRECTED, (Reported) SLIDING SCALE Levothyroxine Sodium (Synthroid) 25 Mcg Tab, 25 MCG PO DAILY, (Reported) Losartan Potassium (Losartan Potassium) 100 Mg Tab, 100 MG PO DAILY, (Reported) Metformin HCl (Metformin HCl ER) 500 Mg Tab.er.24h, 1,000 MG PO BID, (Reported) Pantoprazole Sodium (Pantoprazole Sodium) 40 Mg Tablet.dr, 40 MG PO DAILY, (Reported) Sucralfate (Sucralfate) 1 Gm Tablet, 1 GM PO TID, (Reported) Tizanidine HCl (Tizanidine HCl) 4 Mg Cap, 4 MG PO BID, (Reported) AFTERNOON AND EVENING Torsemide (Torsemide) 20 Mg Tablet, 20 MG PO DAILY, (Reported) Scheduled PRN Hydrocodone/Acetaminophen (Hydrocodone-Acetamin 5-325 mg) 1 Each Tablet, 1 TAB PO QHS PRN for PAIN, (Reported) Menthol (Biofreeze) 118 Ml Gel..ml., 1 APLCT TOP for PAIN, (Reported) APPLIES TO RIGHT LEG AND HIP Allergies Coded Allergies: gatifloxacin (Verified Allergy, Mild, 01/08/19) Past Medical History Medical History CHF with preserved EF IDDM2 with peripheral neuropathy, HTN, CAD s/p PCI in 2018 hypothyroid, HLD, Cirrhosis of liver thought to be from [place] TENDONITIS/CARPAL TUNNEL TUNNEL/NEUROPATHY IN BOTH HANDS Lumber spinal stenosis with radiculopathy, Cervical spondylosis fibromyalgia, VITAMIN B12 DEFICIENCY VITAMIN D DEFICIENCY RIGHT HUMERUS FX 05/2017 ABDOMINAL HERNIA JEONG'S CYST LEFT LEG WITH THIGH PAIN CHRONIC PAIN on chronic opiates Elevated troponins. Surgical History TONSILLECTOMY A CHILD SALIVARY GLAND PUS, GLAND REMOVAL 1950 1981 [id number] HYSTERECTOMY FOR ENDOMETRIAL POLYPS FISTULA REPAIR IN PERINEAL AREA 1992 DRUG-ELUTING STENT TO LAD AT [facility] 07/08/2017 EGD (GASTRIC EROSIONS, MILD GASTROPATHY) AND COLONOSCOPY (DIVERTICULOSIS, OTHERWISE NML) - DR. VEE 07/2017 CATARACT SURGERY - BOTH EYES 2017 Family History FATHER: , OF A BLEEDING ULCER; MOTHER: , DM2, KIDNEY FAILURE, ACROMEGALY BROTHER HAS MS, DM2, HYPERTENSION Social History * Smoker: former Smoker Alcohol: rarely Drugs: denies A-FIB/CHADSVASC A-FIB History Current/History of A-Fib/PAF?: No Review of Systems Constitutional: Denies: Chills, Fever, Night Sweats Eyes: Denies: Pain, Vision change ENT: Denies: Head Aches, Ear Pain, Dysphagia Skin: Denies: Rash, Lesions, Breakdown Pulmonary: Denies: Dyspnea, Cough Cardiovascular: Reports: Lt Headedness; Denies: Chest Pain, Palpitations, Orthopnea, Paroxysmal Noc. Dyspnea Gastrointestinal: Reports: Nausea; Denies: Vomiting, Abdominal Pain, Diarrhea Genitourinary: Denies: Dysuria, Frequency, Incontinence, Retention Musculoskeletal: Reports: Neck Pain, Back Pain, Leg Pain (right), Muscle Pain, Spasms Physical Examination General Exam: Positive: Alert, Cooperative, No Acute Distress Eye Exam: Positive: PERRLA, Conjunctiva & lids normal, EOMI; Negative: Sclera icteric ENT Exam: Positive: Atraumatic, Mucous membr. moist/pink, Pharynx Normal Neck Exam: Positive: Supple; Negative: JVD, thyromegaly Chest Exam: Positive: Clear to auscultation, Normal air movement Heart Exam: Positive: Rate Normal, Regular Rhythm, Normal S1, Normal S2 Abdomen Exam: Positive: Normal bowel sounds, Soft; Negative: Tenderness, Hepatospenomegaly Extremity Exam: Positive: Edema (right leg), Normal pulses, Tenderness (right leg); Negative: Clubbing, Cyanosis Neuro Exam: Positive: Normal Speech, Strength at 5/5 X4 ext, Normal Tone Psych Exam: Positive: Memory Intact, Oriented x 3 Vital Signs Vital Signs Date Time Temp Pulse Resp B/P (MAP) Pulse Ox O2 Delivery O2 Flow Rate FiO2 05/15/20 12:11 64 18 172/72 (105) 99 Room Air 05/15/20 05:40 97.6 Laboratory Data Labs 24H Laboratory Tests 2 05/15/20 05:33: Immature Granulocyte % (Auto) 0.5, Neutrophils (%) (Auto) 38.8, Lymphocytes (%) (Auto) 38.3, Monocytes (%) (Auto) 12.3H, Eosinophils (%) (Auto) 8.6H, Basophils (%) (Auto) 1.5H, Neutrophils # (Auto) 3.1, Lymphocytes # (Auto) 3.1, Monocytes # (Auto) 1.0H, Eosinophils # (Auto) 0.7H, Basophils # (Auto) 0.1, Nucleated Red Blood Cells % (auto) 0.0, Prothrombin Time 13.9, Prothromb Time International Ratio 1.05, Anion Gap 11, Glomerular Filtration Rate 51.5, Calcium Level 9.0, Total Bilirubin 0.4, Direct Bilirubin 0.2, Aspartate Amino Transf (AST/SGOT) 36, Alanine Aminotransferase (ALT/SGPT) 26, Alkaline Phosphatase 159H, Total Creatine Kinase 85, Creatine Kinase MB 2.3, Creatine Kinase MB Relative Index 2.71, Troponin I 0.25H, Total Protein 6.8, Albumin 2.9L, Albumin/Globulin Ratio 0.7L, Lipase 118, Ethyl Alcohol Level < 0.003 05/15/20 07:59: Urine Color ELISHA, Urine Appearance HAZY, Urine pH 5.0, Urine Specific [place] 1.025, Urine Protein 2+H, Urine Glucose (UA) 3+H, Urine Ketones TRACEH, Urine Blood 1+H, Urine Nitrite NEGATIVE, Urine Bilirubin 1+H, Urine Urobilinogen 4.0H, Urine Leukocyte Esterase 1+H, Urine WBC (Auto) 27H, Urine RBC (Auto) 3, Urine Hyaline Casts (Auto) 48, Urine Bacteria (Auto) 1+H, Urine Squamous Epithelial Cells 3, Urine Transitional Epithelial Cells 2, Urine Renal Epithelial Cells 1, Urine Calcium Oxalate Cryst (Auto) SMALL, Urine Granular Casts (Auto) 4, Urine Mucus (Auto) SMALL, Urine Sperm (Auto) , Urine Opiates Screen POSITIVEH, Urine Methadone Screen NEGATIVE, Urine Barbiturates Screen NEGATIVE, Urine Phencyclidine Screen NEGATIVE, Urine Amphetamines Screen NEGATIVE, Urine Benzodiazepines Screen NEGATIVE, Urine Cocaine Metabolite Screen NEGATIVE, Urine Cannabinoids Screen NEGATIVE 05/15/20 09:17: Total Creatine Kinase 84, Creatine Kinase MB 2.3, Creatine Kinase MB Relative Index 2.74, Troponin I 0.21H 05/15/20 11:00: Coronavirus (COVID-19)(PCR) NEGATIVE, Influenza Type A (RT-PCR) NEGATIVE, Influenza Type B (RT-PCR) NEGATIVE, Respiratory Syncytial Virus (PCR) NEGATIVE CBC/BMP Laboratory Tests 05/15/20 05:33 Microbiology Microbiology 05/15/20 Urine Culture, Received Pending Assessment/Plan 70 year old female with multiple medical comorbidities on multiple medication i ncluding chronic opiates for chronic pain, IDDM2 c/b peripheral neuropathy, Bilateral carpal tunnel, Lumber spinal stenosis with radiculopathy, fibromyalgia affecting the right leg, HTN, CAD s/p PCI, hypothyroid, HLD, diastolic CHF, stood up walked to the bathroom she felt dizzy and fell on her left side. She dragged herself to the bathroom and was able to drag herself to the commode. She continued to feel dizzy so she pulled the string for help. She walked to the living room continued to feel dizzy so sat down in her electric wheel chair. She was brought to the ED for evaluation. In the ED her orthostatic vitals were positive, Her troponin were elevated which on review of chart shows are ch ronically elevated and at baseline was admitted for Syncope. Syncope likely orthostatic syncope Vs vasovagal syncope. Orthostatic vitals 1 set was positive in ED. will recheck . will monitor under telemetry for any cardiac arrhythmias. Unfortunately patient is on multiple medications specially for pain which may cause dizziness and orthostatic hypotension. will hold torsemide. CT chest showed new pericardial efussion will get Echo. Right 9th rib fracture undisplaced today she fell on her left side Elevated troponin likely due to chronic diastolic CHF. IDDM2 with peripheral neuropathy, continue home meds levemir and lispro. Chronic diastolic CHF appears euvolemic at this time will hold torsemide. HTN, uncontrolled at this time. She did not get her daily meds will give 1 dose of hydralazine and restart home meds. CAD s/p PCI in 2018 continue asa, statin, coreg. Hypothyroid, synthroid HLD statin Cirrhosis of liver thought to be from [place] No issues at this time Fibromyalgia affecting the right leg continue cymbalta, tizanidine, norco, gabapentin Chronic back pain, neck pain Lumber spinal stenosis with radiculopathy/ Cervical spondylosis TENDONITIS/CARPAL TUNNEL TUNNEL/NEUROPATHY IN BOTH HANDS pain meds as above. Plan / VTE VTE Prophylaxis Ordered?: Yes FARHEEN LOO MD May 15, 2020 13:02
[2020-05-15] MEDS ORDERED: LOSARTAN 50MG TABLET PO ONE (15:00)
[2020-05-15] MEDS: ATORVASTATIN 20 MG TAB PO SCH (16:37)
[2020-05-15] MEDS: SUCRALFATE 1 GM TAB PO SCH (17:30)
[2020-05-15] MEDS: HumaLOG INSULIN (NovoLOG) PER UNIT SC SCH ×2 (17:31→21:25)
[2020-05-15 18:45] VITALS: BP 120/80
[2020-05-15] MEDS: KETOROLAC 30 MG/ML 1ML VIAL IV SCH (19:37)
[2020-05-15] MEDS: DOCUSATE SODIUM 100MG CAPSULE PO SCH (21:00)
[2020-05-15] MEDS ORDERED: CARVedilol 6.25 MG TAB PO SCH (21:00)
[2020-05-15] MEDS: tiZANidine 4 MG TAB PO SCH (21:22)
[2020-05-15] MEDS: NORCO, ANEXSIA 5/325MG TABLET (HYDROcodone/ACETAMINOPHEN) PO PRN (21:23)
[2020-05-15] MEDS: GABAPENTIN 100 MG CAP PO SCH (21:23)
[2020-05-15] MEDS: FERROUS SULFATE 325MG TAB PO SCH (21:23)
[2020-05-15] MEDS: ENOXAPARIN 40MG/0.4ML SYRINGE (J1650 PER 10MG) SC SCH (21:25)
[2020-05-15] MEDS: LEVEMIR (INSULIN DETEMIR) 1 UNITS/0.01ML SC SCH (21:26)
[2020-05-15 22:00] VITALS: BP_SYST 188; BP_SYST 190; BP_SYST 206; BP_DIAS 76; BP_DIAS 80
[2020-05-15 22:30] VITALS: BP 216/80
[2020-05-15] MEDS ORDERED: METOPROLOL 5 MG/5 ML VIAL IV STA (22:46)
[2020-05-15] MEDS ORDERED: **hydrALAZINE** 50 MG TAB PO ONE (22:55)
[2020-05-16 00:03] VITALS: BP 158/56
[2020-05-16] MEDS: KETOROLAC 30 MG/ML 1ML VIAL IV SCH ×3 (04:12→20:19)
[2020-05-16 06:00] VITALS: BP 111/53
[2020-05-16] MEDS: LEVOTHYROXINE 25MCG TABLET (0.025MG) PO SCH (06:01)
[2020-05-16 06:24] LABS: BASO # 0.1 10^3/uL (0.0-0.2); BASO % 1.2 % (0.0-1.0); EOS # 0.7 10^3/uL (0.0-0.5); EOS % 10.1 % (0.0-3.0); HEMATOCRIT 38.1 % (36.0-47.0); HEMOGLOBIN 12.3 g/dl (12.0-15.5); LYMPH # 2.2 10^3/uL (1.5-5.0); LYMPH % 34.5 % (24.0-44.0); MEAN CORPUSCULAR HEMOGLOBIN 27.7 pg (27.0-33.0); MEAN CORPUSCULAR HGB CONC 32.3 g/dl (32.0-36.5); MEAN CORPUSCULAR VOLUME 85.8 fl (80.0-96.0); MONO # 0.9 10^3/uL (0.0-0.8); NEUTROPHILS # 2.6 10^3/uL (1.5-8.5); PLATELET COUNT, AUTOMATED 145 10^3/uL (150-450); RED BLOOD COUNT 4.44 10^6/uL (4.00-5.40); WHITE BLOOD COUNT 6.4 10^3/uL (4.0-10.0)
[2020-05-16 06:50] VITALS: BP_SYST 123; BP_SYST 142; BP_SYST 146; BP_DIAS 61
[2020-05-16 06:52] LABS: BLOOD UREA NITROGEN 25 MG/DL (7-18); CALCIUM LEVEL 8.2 MG/DL (8.8-10.2); CARBON DIOXIDE LEVEL 30 MEQ/L (21-32); CHLORIDE LEVEL 108 MEQ/L (98-107); CREATININE FOR GFR 0.75 MG/DL (0.55-1.30); GLOMERULAR FILTRATION RATE > 60.0 (>45); GLUCOSE, FASTING 191 MG/DL (70-100); POTASSIUM SERUM 4.1 MEQ/L (3.5-5.1); SODIUM LEVEL 142 MEQ/L (136-145)
[2020-05-16] MEDS: ATORVASTATIN 20 MG TAB PO SCH (08:26)
[2020-05-16] MEDS: PANTOPRAZOLE 40MG TAB (PROTONIX) PO SCH (08:26)
[2020-05-16] MEDS: FERROUS SULFATE 325MG TAB PO SCH ×2 (08:26→21:36)
[2020-05-16] MEDS: SUCRALFATE 1 GM TAB PO SCH ×3 (08:26→17:17)
[2020-05-16] MEDS: DULoxetine 30 MG CAP (CYMBALTA) PO SCH (08:26)
[2020-05-16] MEDS: HumaLOG INSULIN (NovoLOG) PER UNIT SC SCH ×4 (08:26→21:00)
[2020-05-16] MEDS: GABAPENTIN 100 MG CAP PO SCH ×2 (08:26→21:36)
[2020-05-16] MEDS: LEVEMIR (INSULIN DETEMIR) 1 UNITS/0.01ML SC SCH ×2 (08:26→21:37)
[2020-05-16] MEDS: ASPIRIN 81MG ENTERIC TABLET PO SCH (08:26)
[2020-05-16] MEDS: CARVedilol 6.25 MG TAB PO SCH ×2 (08:28→21:37)
[2020-05-16] MEDS: DOCUSATE SODIUM 100MG CAPSULE PO SCH ×2 (08:30→21:36)
[2020-05-16] MEDS: NORCO, ANEXSIA 5/325MG TABLET (HYDROcodone/ACETAMINOPHEN) PO PRN (08:34)
[2020-05-16] MEDS ORDERED: LOSARTAN 50MG TABLET PO SCH (09:00)
--- NOTE | 2020-05-16 10:57 | ECHO ---
DATE OF PROCEDURE: 05/15/2020 Age: 70 Gender: Female REFERRING PHYSICIAN: PATIENT LOCATION: Room 4217. REASON FOR STUDY: Pericardial effusion, syncope. 2D MEASUREMENTS: IVS 1.2 cm LV 5.5 cm LVPW 1.2 cm LA 4.7 cm Aorta 3.3 cm RV 3.0 cm Ascending aorta 3.8 cm IVC 2.1 cm DOPPLER MEASUREMENT Peak velocity across the aortic valve 2.2 m/s Peak velocity across the LVOT 1.3 m/s Peak gradient across the aortic valve 21 mmHg Mean gradient across the aortic valve 11 mmHg Mitral E 1.3 Mitral A 1.4 with a ratio of 0.9 Maximum tricuspid valve velocity 3.7 m/s 2D COMMENTS: 1. Borderline enlarged left ventricle with a normal global left ventricular systolic function. Left ventricular wall thickness is normal. The estimated global left ventricular systolic function is 60% to 65%. 2. Mildly dilated left atrium. Normal right atrium and right ventricle. 3. The atrial septum appeared to be normal without evidence of defect or shunt. 4. Mildly dilated ascending aorta size 3.8 cm. The aortic root was normal in size. 5. A small pericardial effusion was noted, no evidence of cardiac tamponade. 6. Mildly calcified aortic valve with normal leaflet excursion. Mildly calcified mitral annulus with normal anterior mitral valve leaflet motion. Normal tricuspid valve and pulmonic valve. The proximal pulmonary artery branches also appeared to be normal. 7. The inferior vena cava was dilated, central venous pressure might be elevated. Doppler detects trace aortic regurgitation, mild mitral regurgitation, and mild to moderate tricuspid regurgitation. The calculated pulmonary artery systolic pressure varied between 55% to 65% mmHg. Abnormal relaxation pattern was noted across the mitral valve leaflets, as well as the mitral valve annulus consistent with features of grade 1 left ventricular diastolic dysfunction. IMPRESSION: 1. Normal global left ventricular systolic function with borderline enlarged left ventricle. There are some features of grade 1 left ventricular diastolic dysfunction manifested by abnormal relaxation. 2. Aortic valve sclerosis with trace aortic regurgitation. A mildly dilated ascending aorta was noted, 3.8 cm. 3. Mitral annular calcification with mild mitral regurgitation and a mildly enlarged left atrium. 4. Yald-pn-[id number] tricuspid regurgitation with ljcvjhvh-[id number] pulmonary hypertension. 5. A small pericardial effusion was noted. No evidence of cardiac tamponade. [facility]
--- NOTE | 2020-05-16 11:07 | IPNPDOC ---
Subjective Date Seen The patient was seen on 05/16/20. Subjective Chief Complaint/HPI Feels better this morning. No dizziness today. Says her right leg feels better too. Less swelling. Pain is better. Objective Physical Examination General Exam: Positive: Alert, Cooperative, No Acute Distress Eye Exam: Positive: PERRLA, Conjunctiva & lids normal, EOMI; Negative: Sclera icteric ENT Exam: Positive: Atraumatic, Mucous membr. moist/pink, Pharynx Normal Neck Exam: Positive: Supple; Negative: JVD, thyromegaly Chest Exam: Positive: Clear to auscultation, Normal air movement Heart Exam: Positive: Rate Normal, Regular Rhythm, Normal S1, Normal S2 Abdomen Exam: Positive: Normal bowel sounds, Soft; Negative: Tenderness, Hepatospenomegaly Extremity Exam: Positive: Edema (right leg), Normal pulses, Tenderness (right leg); Negative: Clubbing, Cyanosis Neuro Exam: Positive: Normal Speech, Strength at 5/5 X4 ext, Normal Tone Psych Exam: Positive: Memory Intact, Oriented x 3 Assessment /Plan Assessment 70 year old female with multiple medical comorbidities on multiple medication including chronic opiates for chronic pain, IDDM2 c/b peripheral neuropathy, Bilateral carpal tunnel, Lumber spinal stenosis with radiculopathy, fibromyalgia affecting the right leg, HTN, CAD s/p PCI, hypothyroid, HLD, diastolic CHF, stood up walked to the bathroom she felt dizzy and fell on her left side. She dragged herself to the bathroom and was able to drag herself to the commode. She continued to feel dizzy so she pulled the string for help. She walked to the living room continued to feel dizzy so sat down in her electric wheel chair. She was brought to the ED for evaluation. In the ED her orthostatic vitals were positive, Her troponin were elevated which on review of chart shows are chronically elevated and at baseline was admitted for Syncope. Syncope likely orthostatic syncope Vs vasovagal syncope. Orthostatic vitals positive No cardiac arrhythmias noted till now. Unfortunately patient is on multiple medications specially for pain which may cause dizziness and orthostatic hypotension. will hold torsemide. Echo: 1. Normal global left ventricular systolic function with borderline enlarged left ventricle. There are some features of grade 1 left ventricular diastolic dysfunction manifested by abnormal relaxation. 2. Aortic valve sclerosis with trace aortic regurgitation. A mildly dilated ascending aorta was noted, 3.8 cm. 3. Mitral annular calcification with mild mitral regurgitation and a mildly enlarged left atrium. 4. Lvww-ix-lhqqqlmv tricuspid regurgitation with lwsxlbyl-qz-zeavxz pulmonary hypertension. 5. A small pericardial effusion was noted. No evidence of cardiac tamponade. Home safety eval Right 9th rib fracture undisplaced she fell on her left side this She mentioned she had fallen on her right side before. Elevated troponin likely due to chronic diastolic CHF. IDDM2 with peripheral neuropathy, continue home meds levemir and lispro. Chronic diastolic CHF appears euvolemic at this time will hold torsemide. HTN, uncontrolled at this time. She did not get her daily meds will give 1 dose of hydralazine and restart home meds. CAD s/p PCI in 2018 continue asa, statin, coreg. Hypothyroid, Synthroid HLD statin Cirrhosis of liver thought to be from [place] No issues at this time Fibromyalgia affecting the right leg continue cymbalta, tizanidine, norco, gabapentin will give toradol. Chronic back pain, neck pain Lumber spinal stenosis with radiculopathy/ Cervical spondylosis TENDONITIS/CARPAL TUNNEL TUNNEL/NEUROPATHY IN BOTH HANDS pain meds as above. Plan/VTE VTE Prophylaxis Ordered?: Yes VS, I&O, 24H, Fishbone Vital Signs/I&O Vital Signs Date Time Temp Pulse Resp B/P (MAP) Pulse Ox O2 Delivery O2 Flow Rate FiO2 05/16/20 09:20 16 05/16/20 08:28 70 142/68 05/16/20 06:00 98.4 96 05/15/20 22:00 Room Air I&O- Last 24 Hours up to 6 AM 05/16/20 05:59 Intake Total 2740 ml Output Total 1900 ml Balance 840 ml Laboratory Data 24H LABS Laboratory Tests 2 05/15/20 16:39: Bedside Glucose (Misc Panel) 171H 05/15/20 21:14: Bedside Glucose (Misc Panel) 274H 05/16/20 06:12: Immature Granulocyte % (Auto) 0.2, Neutrophils (%) (Auto) 40.0, Lymphocytes (%) (Auto) 34.5, Monocytes (%) (Auto) 14.0H, Eosinophils (%) (Auto) 10.1H, Basophils (%) (Auto) 1.2H, Neutrophils # (Auto) 2.6, Lymphocytes # (Auto) 2.2, Monocytes # (Auto) 0.9H, Eosinophils # (Auto) 0.7H, Basophils # (Auto) 0.1, Nucleated Red Blood Cells % (auto) 0.0, Anion Gap 4L, Glomerular Filtration Rate > 60.0, Calcium Level 8.2L CBC/BMP Laboratory Tests 05/16/20 06:12 Microbiology Microbiology 05/15/20 Urine Culture - Final, Complete RAYFARHEEN MD May 16, 2020 11:07
[2020-05-16] MEDS: tiZANidine 4 MG TAB PO SCH ×2 (13:00→21:36)
[2020-05-16 15:11] VITALS: BP_SYST 98; BP_DIAS 40; BP_DIAS 43; BP_DIAS 45
[2020-05-16 17:18] VITALS: BP 102/48
--- NOTE | 2020-05-16 17:26 | ECGEPIP ---
[facility] - ED Test Date: 2020-05-15 Pat Name: MARIANA SMITH Department: Room: - Gender: Female Auto Locator: : 1950 Requested By: AYDIN Carson Order Number: [id number] Reading MD: Antonina Hazel Measurements Intervals [place] Rate: 63 P: 57 DC: 168 QRS: -20 QRSD: 112 T: 144 QT: 478 QTc: 489 Interpretive Statements Normal sinus rhythm Left ventricular hypertrophy with repolarization abnormality ( Miah product ) ivcd NSTTW abnormalities prolonged qtc clinical correlation Electronically Signed on 05-16-2020 17:25:46 EDT by Antonina Hazel
[2020-05-16] MEDS: ENOXAPARIN 40MG/0.4ML SYRINGE (J1650 PER 10MG) SC SCH (21:36)
[2020-05-16 22:00] VITALS: BP 149/67
[2020-05-17] MEDS: KETOROLAC 30 MG/ML 1ML VIAL IV SCH ×2 (04:37→11:01)
[2020-05-17 05:28] VITALS: BP_SYST 131; BP_SYST 132; BP_DIAS 64; BP_DIAS 65
[2020-05-17] MEDS: LEVOTHYROXINE 25MCG TABLET (0.025MG) PO SCH (05:35)
[2020-05-17 06:18] LABS: BASO # 0.1 10^3/uL (0.0-0.2); BASO % 1.4 % (0.0-1.0); EOS # 0.7 10^3/uL (0.0-0.5); EOS % 11.2 % (0.0-3.0); HEMATOCRIT 37.1 % (36.0-47.0); HEMOGLOBIN 12.1 g/dl (12.0-15.5); LYMPH # 2.1 10^3/uL (1.5-5.0); LYMPH % 35.9 % (24.0-44.0); MEAN CORPUSCULAR HEMOGLOBIN 27.6 pg (27.0-33.0); MEAN CORPUSCULAR HGB CONC 32.6 g/dl (32.0-36.5); MEAN CORPUSCULAR VOLUME 84.5 fl (80.0-96.0); MONO # 0.7 10^3/uL (0.0-0.8); MONO % 11.8 % (2.0-8.0); NEUTROPHILS # 2.3 10^3/uL (1.5-8.5); NEUTROPHILS % 39.5 % (36.0-66.0); PLATELET COUNT, AUTOMATED 149 10^3/uL (150-450); RED BLOOD COUNT 4.39 10^6/uL (4.00-5.40); WHITE BLOOD COUNT 5.9 10^3/uL (4.0-10.0)
[2020-05-17 06:43] LABS: BLOOD UREA NITROGEN 33 MG/DL (7-18); CALCIUM LEVEL 8.2 MG/DL (8.8-10.2); CARBON DIOXIDE LEVEL 29 MEQ/L (21-32); CHLORIDE LEVEL 105 MEQ/L (98-107); CREATININE FOR GFR 0.73 MG/DL (0.55-1.30); GLOMERULAR FILTRATION RATE > 60.0 (>45); GLUCOSE, FASTING 166 MG/DL (70-100); POTASSIUM SERUM 4.1 MEQ/L (3.5-5.1); SODIUM LEVEL 139 MEQ/L (136-145)
[2020-05-17] MEDS ORDERED: LOSA50TA88 PO (07:31)
[2020-05-17] MEDS ORDERED: CARVedilol 6.25 MG TAB PO SCH (09:00)
[2020-05-17] MEDS ORDERED: LOSARTAN 50MG TABLET PO SCH (09:00)
[2020-05-17] MEDS: ASPIRIN 81MG ENTERIC TABLET PO SCH (09:03)
[2020-05-17] MEDS: ATORVASTATIN 20 MG TAB PO SCH (09:03)
[2020-05-17] MEDS: GABAPENTIN 100 MG CAP PO SCH (09:03)
[2020-05-17] MEDS: SUCRALFATE 1 GM TAB PO SCH (09:03)
[2020-05-17] MEDS: FERROUS SULFATE 325MG TAB PO SCH (09:03)
[2020-05-17] MEDS: DOCUSATE SODIUM 100MG CAPSULE PO SCH (09:03)
[2020-05-17] MEDS: DULoxetine 30 MG CAP (CYMBALTA) PO SCH (09:03)
[2020-05-17] MEDS: PANTOPRAZOLE 40MG TAB (PROTONIX) PO SCH (09:03)
[2020-05-17] MEDS: HumaLOG INSULIN (NovoLOG) PER UNIT SC SCH (09:04)
[2020-05-17] MEDS: LEVEMIR (INSULIN DETEMIR) 1 UNITS/0.01ML SC SCH (09:04)
[2020-05-17 09:08] VITALS: BP 160/60
--- NOTE | 2020-05-18 16:44 | DS.PDOC ---
Discharge Summary General Date of Admission May 15, 2020 at 13:02 Date of Discharge 05/17/20 Discharge Summary PROCEDURES PERFORMED DURING STAY: [None]. DISCHARGE DIAGNOSES: Syncope due to orthostatic hypotension Hypotension related to BP meds Right 9th rib fracture unknown time of occurrence SECONDARY DIAGNOSIS CHF with preserved EF IDDM2 with peripheral neuropathy, HTN, CAD s/p PCI in 2018 hypothyroid, HLD, Cirrhosis of liver thought to be from [place] TENDONITIS/CARPAL TUNNEL TUNNEL/NEUROPATHY IN BOTH HANDS Lumber spinal stenosis with radiculopathy, Cervical spondylosis fibromyalgia, VITAMIN B12 DEFICIENCY VITAMIN D DEFICIENCY RIGHT HUMERUS FX 05/2017 ABDOMINAL HERNIA JEONG'S CYST LEFT LEG WITH THIGH PAIN CHRONIC PAIN on chronic opiates Chronic Elevated troponins. COMPLICATIONS/CHIEF COMPLAINT: Syncope. HOSPITAL COURSE: 70 year old female with multiple medical comorbidities on multiple medication including chronic opiates for chronic pain, IDDM2 c/b peripheral neuropathy, Bilateral carpal tunnel, Lumber spinal stenosis with radiculopathy, fibromyalgia affecting the right leg, HTN, CAD s/p PCI, hypothyroid, HLD, diastolic CHF, stood up walked to the bathroom she felt dizzy and fell on her left side. She dragged herself to the bathroom and was able to drag herself to the commode. She continued to feel dizzy so she pulled the string for help. She walked to the living room continued to feel dizzy so sat down in her electric wheel chair. She was brought to the ED for evaluation. In the ED her orthostatic vitals were positive, Her troponin were elevated which on review of chart shows are chronically elevated and at baseline was admitted for Syncope. Syncope likely orthostatic syncope Vs vasovagal syncope. Orthostatic vitals positive No cardiac arrhythmias noted till now. Unfortunately patient is on multiple medications specially for pain which may cause dizziness and orthostatic hypotension. will hold torsemide. Echo: 1. Normal global left ventricular systolic function with borderline enlarged left ventricle. There are some features of grade 1 left ventricular diastolic dysfunction manifested by abnormal relaxation. 2. Aortic valve sclerosis with trace aortic regurgitation. A mildly dilated ascending aorta was noted, 3.8 cm. 3. Mitral annular calcification with mild mitral regurgitation and a mildly enlarged left atrium. 4. Xmbs-vv-gzzvssem tricuspid regurgitation with bqehtybn-jh-nfgvuk pulmonary hypertension. 5. A small pericardial effusion was noted. No evidence of cardiac tamponade. Home safety eval Right 9th rib fracture undisplaced she fell on her left side this She mentioned she had fallen on her right side before. Elevated troponin likely due to chronic diastolic CHF. IDDM2 with peripheral neuropathy, continue home meds levemir and lispro. Chronic diastolic CHF appears euvolemic at this time continue torsemide. HTN in hospital mostly very well controlled with episode of hypotension related to BP medications. will reduce losartan from 100 to 75 and stop amlodipine CAD s/p PCI in 2018 continue asa, statin, coreg. Hypothyroid, Synthroid HLD statin Cirrhosis of liver thought to be from ARNOLD No issues at this time Fibromyalgia affecting the right leg continue cymbalta, tizanidine, norco, gabapentin will give toradol. Chronic back pain, neck pain Lumber spinal stenosis with radiculopathy/ Cervical spondylosis TENDONITIS/CARPAL TUNNEL TUNNEL/NEUROPATHY IN BOTH HANDS pain meds as above. DISCHARGE MEDICATIONS: Please see below. ALLERGIES: Please see below. PHYSICAL EXAMINATION ON DISCHARGE: VITAL SIGNS: Please see below. General Exam: Positive: Alert, Cooperative, No Acute Distress Eye Exam: Positive: PERRLA, Conjunctiva & lids normal, EOMI; Negative: Sclera icteric ENT Exam: Positive: Atraumatic, Mucous membr. moist/pink, Pharynx Normal Neck Exam: Positive: Supple; Negative: JVD, thyromegaly Chest Exam: Positive: Clear to auscultation, Normal air movement Heart Exam: Positive: Rate Normal, Regular Rhythm, Normal S1, Normal S2 Abdomen Exam: Positive: Normal bowel sounds, Soft; Negative: Tenderness, Hepatospenomegaly Extremity Exam: Positive: Edema (right leg), Normal pulses, Tenderness (right leg); Negative: Clubbing, Cyanosis Neuro Exam: Positive: Normal Speech, Strength at 5/5 X4 ext, Normal Tone Psych Exam: Positive: Memory Intact, Oriented x 3 LABORATORY DATA: Please see below. ACTIVITY: [As tolerated]. DIET: Carb consistent DISPOSITION: 01 Home, Self-Care. DISCHARGE INSTRUCTIONS: Follow up with PMD in 1 week DISCHARGE CONDITION: [Stable]. TIME SPENT ON DISCHARGE: 35 minutes. Vital Signs/I&Os Vital Signs Date Time Temp Pulse Resp B/P (MAP) Pulse Ox O2 Delivery O2 Flow Rate FiO2 05/17/20 09:08 160/60 05/17/20 09:07 71 05/17/20 06:00 97.3 18 95 Room Air I&O- Last 24 Hours up to 6 AM 05/18/20 07:00 Intake Total 420 ml Output Total 300 ml Balance 120 ml Microbiology Microbiology 05/15/20 Urine Culture - Final, Complete Discharge Medications Scheduled Aspirin (Aspirin EC) 81 Mg Tablet.dr, 81 MG PO DAILY, (Reported) Atorvastatin Calcium (Atorvastatin Calcium) 20 Mg Tab, 20 MG PO DAILY, (Reported) Carvedilol (Carvedilol) 6.25 Mg Tablet, 6.25 MG PO BID, (Reported) Duloxetine Hcl (Duloxetine HCl) 30 Mg Capsule.dr, 30 MG PO DAILY, (Reported) Empagliflozin (Jardiance) 10 Mg Tablet, 10 MG PO DAILY, (Reported) Ferrous Sulfate (Ferrous Sulfate) 325 Mg Tablet.dr, 325 MG PO BID, (Reported) Gabapentin (Gabapentin) 100 Mg Capsule, 100 MG PO BID, (Reported) Insulin Detemir (Levemir) 100 Unit/1 Ml Vial, 25 UNITS SC BID, (Reported) Insulin Human Lispro (Novolog) 100 Unit/1 Ml Vial, 1 DOSE SC ASDIRECTED, (Reported) SLIDING SCALE Levothyroxine Sodium (Synthroid) 25 Mcg Tab, 25 MCG PO DAILY, (Reported) Losartan Potassium (Losartan Potassium) 50 Mg Tablet, 1.5 TAB PO DAILY total dose 75 mg Metformin HCl (Metformin HCl ER) 500 Mg Tab.er.24h, 1,000 MG PO BID, (Reported) Pantoprazole Sodium (Pantoprazole Sodium) 40 Mg Tablet.dr, 40 MG PO DAILY, (Reported) Sucralfate (Sucralfate) 1 Gm Tablet, 1 GM PO TID, (Reported) Tizanidine HCl (Tizanidine HCl) 4 Mg Cap, 4 MG PO BID, (Reported) AFTERNOON AND EVENING Torsemide (Torsemide) 20 Mg Tablet, 20 MG PO DAILY, (Reported) Scheduled PRN Hydrocodone/Acetaminophen (Hydrocodone-Acetamin 5-325 mg) 1 Each Tablet, 1 TAB PO QHS PRN for PAIN, (Reported) Menthol (Biofreeze) 118 Ml Gel..ml., 1 APLCT TOP for PAIN, (Reported) APPLIES TO RIGHT LEG AND HIP Allergies Coded Allergies: gatifloxacin (Verified Allergy, Mild, 01/08/19) FARHEEN LOO MD 24, 2021 16:44
== END 2020-05-17 11:11 | disposition home health service (06) ==
LOC: M ED 05:23 → M ED INP 13:02 → ENRESERV 13:21 → M MSPAV 14:11
PROVIDERS: ADMIT Internal Medicine Nephrology; ATTEND Internal Medicine Nephrology
DX: R55 Syncope and collapse (principal); E11.40 Type 2 diabetes mellitus with diabetic neuropathy, unspecified; M54.16 Radiculopathy, lumbar region; G89.29 Other chronic pain; I25.10 Atherosclerotic heart disease of native coronary artery without angina pectoris; M79.7 Fibromyalgia; E03.9 Hypothyroidism, unspecified; I50.32 Chronic diastolic (congestive) heart failure; I11.0 Hypertensive heart disease with heart failure; E55.9 Vitamin D deficiency, unspecified; E53.8 Deficiency of other specified B group vitamins; G56.03 Carpal tunnel syndrome, bilateral upper limbs; Z79.899 Other long term (current) drug therapy; Z79.84 Long term (current) use of oral hypoglycemic drugs; Z79.4 Long term (current) use of insulin; Z87.891 Personal history of nicotine dependence; Z88.1 Allergy status to other antibiotic agents; K75.81 Nonalcoholic steatohepatitis (NASH); E78.49 Other hyperlipidemia; Z79.82 Long term (current) use of aspirin
CPT/HCPCS: 36415; 70450; 71045; 71260; 73521; 80048; 80076; 80307; 81001; 82077; 82550; 82553; 83690; 84484; 85025; 85610; 87086; 87631; 93005; 93041; 93306; 94760; 96361; 96372; 96374; 96376; 97161; 97530; 99285; G0378; J1650; J1885; Q9967

== ENCOUNTER → 2020-05-26 | Outpatient (CLI) | payer OTHER ==
[~2020-05-26] MED LIST changes: +AMLO2.5T3 PO; +JARD1TAB PO; +LOSA50TA88 PO
--- NOTE | 2020-05-26 11:16 | REPVR ---
PROCEDURE INFORMATION: Exam: MR Lumbar Spine Without Contrast Exam date and time: 05/26/2020 10:44 AM Age: 70 years old Clinical indication: Low back pain; Patient HX: RT arm pain w/ cervicalgia / RT leg parasthesia TECHNIQUE: Imaging protocol: Multiplanar magnetic resonance images of the lumbar spine without intravenous contrast. COMPARISON: MRI-Spine, L.S. without con 07/06/2018 5:41 PM FINDINGS: Vertebrae: Examination reveals an acute superior endplate compression fracture with increased T2 signal involving the L1 vertebral body which is new since the previous study. There is retropulsion along the posterosuperior aspect causing mild spinal canal stenosis and mild compression on the adjacent thecal sac. Otherwise,The remainder of the lumbar vertebral bodies are normal in height,signal intensity and alignment. Spinal epidural space: There is no evidence of epidural masses or hemorrhage. Spinal cord: The conus medullaris is normal. The cauda equina nerve roots demonstrate no crowding or displacement. L1-L2: There is no significant degenerative disc herniation.The spinal canal and neural foramina are patent and without significant stenosis. L2-L3: There is no significant degenerative disc herniation.The spinal canal and neural foramina are patent and without significant stenosis. L3-L4: Small diffuse posterior herniation. Moderate facet arthropathy.There is thickening of the ligamentum flavum.There is mild spinal canal narrowing, with an AP canal dimension of 10 mm.There is mild bilateral foraminal stenosis. L4-L5: Small diffuse posterior herniation. Severe facet arthropathy.There is thickening of the ligamentum flavum.There is mild spinal canal narrowing, with an AP canal dimension of 10 mm. There is mild left foraminal stenosis. There is severe right foraminal stenosis. There is compression on the right exiting nerve root. L5-S1: Markedly reduced in height and T2 signal indicating degeneration. Mild degenerative endplate changes. Moderate facet arthropathy.The spinal canal and neural foramina are patent and without significant stenosis. Soft tissues: There is prevertebral soft tissue swelling at T12 and L1 levels. IMPRESSION: 1. MRI of the lumbar spine reveals multilevel degenerative spondylitic changes and degenerative disc disease as described above. 2. Examination reveals an acute superior endplate compression fracture with increased T2 signal involving the L1 vertebral body which is new since the previous study. There is retropulsion along the posterosuperior aspect causing mild spinal canal stenosis and mild compression on the adjacent thecal sac. Electronically signed by: Albert Corral On 05/26/2020 11:16:34 AM
--- NOTE | 2020-05-26 11:26 | REPVR ---
PROCEDURE INFORMATION: Exam: MR Cervical Spine Without Contrast Exam date and time: 05/26/2020 10:44 AM Age: 70 years old Clinical indication: Neck pain; Patient HX: RT arm pain w/ cervicalgia / RT leg parasthesia TECHNIQUE: Imaging protocol: Multiplanar magnetic resonance images of the cervical spine without contrast. COMPARISON: MRI-Spine,Cervical without con 11/12/2019 7:49 PM FINDINGS: Vertebrae: There is straightening of the cervical spine which could be secondary to positioning or muscle spasm. There is mild degenerative retrolisthesis of C5 on C6. There is mild degenerative wedging of the C5 and C6 vertebral bodies. Otherwise, The cervical vertebral bodies are normal height and alignment.No acute fracture or dislocation is seen.The atlantoaxial articulation is normal. Spinal epidural space: There is no evidence for epidural mass or hemorrhage. C2-C3: No significant disc disease. No significant spinal stenosis. C3-C4: There is a mild diffuse posterior bulge causing mild effacement of the thecal sac.There is bilateral uncovertebral hypertrophic changes.The facet joints demonstrate mild degenerative hypertrophy and sclerosis.There is mild bilateral foraminal stenosis. C4-C5: Small posterior central protrusion causing mild indentation of the thecal sac.There is bilateral uncovertebral hypertrophic changes.The facet joints demonstrate mild degenerative hypertrophy and sclerosis.There is mild spinal canal narrowing, with an AP canal dimension of 10 mm. There is mild bilateral foraminal stenosis. C5-C6: Markedly reduced in height and T2 signal indicating degeneration. Moderate degenerative endplate changes. Moderate diffuse posterior herniation. There is diffuse endplate spurring.There is bilateral uncovertebral hypertrophic changes.The facet joints demonstrate moderate degenerative narrowing and sclerosis. There is moderate spinal canal stenosis, with an AP canal dimension of 8 mm. There is mild compression and flattening of the spinal cord at this level.There is severe bilateral foraminal stenosis. There is compression on the bilateral exiting nerve root. C6-C7: Markedly reduced in height and T2 signal indicating degeneration. Moderate degenerative endplate changes. Moderate diffuse posterior herniation. There is diffuse endplate spurring.There is bilateral uncovertebral hypertrophic changes.The facet joints demonstrate moderate degenerative narrowing and sclerosis. There is moderate spinal canal stenosis, with an AP canal dimension of 8 mm. There is mild compression and flattening of the spinal cord at this level.There is severe bilateral foraminal stenosis. There is compression on the bilateral exiting nerve root. C7-T1: There is a mild diffuse posterior bulge causing mild effacement of the thecal sac.The facet joints demonstrate mild degenerative hypertrophy and sclerosis.There is mild bilateral foraminal stenosis. Soft tissues: The prevertebral soft tissues appear normal. Brain: The visualized brain parenchyma is unremarkable. Vertebral arteries: Expected flow voids in the vertebral arteries. IMPRESSION: MRI of the cervical spine reveals multilevel degenerative spondylitic changes and degenerative disc disease, most significant at C5-C6 and C6-C7 levels with moderate spinal canal stenosis and compressive myelopathy as described above. Electronically signed by: Albert Corral On 05/26/2020 11:27:04 AM
== END ==
LOC: M RAD 09:28
PROVIDERS: ATTEND Family Medicine
DX: M50.322 Other cervical disc degeneration at C5-C6 level (principal); M50.323 Other cervical disc degeneration at C6-C7 level; R20.2 Paresthesia of skin; M79.601 Pain in right arm

== ENCOUNTER 2020-05-30 11:19 | Inpatient (IN) | payer OTHER ==
[~2020-05-30] VITALS: Ht 165.1 cm; Wt 85.4 kg
[2020-05-30] MEDS ORDERED: NS 500 ML IV ONE (11:50)
[2020-05-30 12:14] LABS: BASO # 0.1 10^3/uL (0.0-0.2); BASO % 1.1 % (0.0-1.0); EOS # 0.9 10^3/uL (0.0-0.5); EOS % 9.7 % (0.0-3.0); HEMATOCRIT 37.3 % (36.0-47.0); HEMOGLOBIN 12.1 g/dl (12.0-15.5); LYMPH # 2.7 10^3/uL (1.5-5.0); LYMPH % 30.5 % (24.0-44.0); MEAN CORPUSCULAR HEMOGLOBIN 27.5 pg (27.0-33.0); MEAN CORPUSCULAR HGB CONC 32.4 g/dl (32.0-36.5); MEAN CORPUSCULAR VOLUME 84.8 fl (80.0-96.0); MONO # 0.7 10^3/uL (0.0-0.8); NEUTROPHILS # 4.5 10^3/uL (1.5-8.5); NEUTROPHILS % 50.5 % (36.0-66.0); PLATELET COUNT, AUTOMATED 199 10^3/uL (150-450)
--- NOTE | 2020-05-30 12:15 | REP ---
INDICATION: hypotension. COMPARISON: 05/15/2020. TECHNIQUE: SINGLE PORTABLE AP VIEW OF THE CHEST WAS PERFORMED. FINDINGS: There is mild bibasilar fibro atelectatic change. There is mild elevation of the right hemidiaphragm unchanged. Cardiac silhouette is mildly prominent. Mediastinal silhouette is unchanged. IMPRESSION: Mild bibasilar fibro atelectatic change. <Electronically signed by Tan Jaramillo > 05/30/20 [id number]
[2020-05-30 12:46] LABS: BLOOD UREA NITROGEN 18 MG/DL (7-18); CALCIUM LEVEL 8.7 MG/DL (8.8-10.2); CARBON DIOXIDE LEVEL 27 MEQ/L (21-32); CHLORIDE LEVEL 103 MEQ/L (98-107); CK-MB VALUE MASS 1.9 NG/ML (<3.6); CPK CREATINE PHOSPHOKINASE 54 U/L (26-192); CREATININE FOR GFR 0.75 MG/DL (0.55-1.30); GLOMERULAR FILTRATION RATE > 60.0 (>45); GLUCOSE, FASTING 149 MG/DL (70-100); MB/CK RELATIVE INDEX 3.52 (< OR =4); SODIUM LEVEL 140 MEQ/L (136-145); TROPONIN I 0.19 NG/ML (< 0.10)
[2020-05-30] MEDS ORDERED: NS 1,000 ML IV ONE (13:10)
--- NOTE | 2020-05-30 13:58 | HPEPDOC ---
[facility] Medical History & Physical Date of Admission May 30, 2020 Date of Service: May 30, 2020 History and Physical CHIEF COMPLAINT: GENERAL MALAISE, FALLS HISTORY OF PRESENT ILLNESS: 70 year old female presents for several day history of worsening generalized malaise, with falls. She denies chest pain, shortness of breath, headaches, abdominal pain, N/V/D. Extensive medical history as indicated below. In the ED she was initially found to be hypotensive and bradycardic. She responded well to IV fluids, eventually becoming hypertensive. She was found to have indeterminately elevated troponins, but has a history of troponinemia. PAST MEDICAL HISTORY: #recent L2 compression Fx #HFpEF #chronic troponinemia #IDDM2 with peripheral neuropathy #HTN #CAD s/p PCI in 2018 #hypothyroid #HLD Cirrhosis of liver thought to be from [place] TENDONITIS/CARPAL TUNNEL TUNNEL/NEUROPATHY IN BOTH HANDS Lumber spinal stenosis with radiculopathy Cervical spondylosis fibromyalgia, VITAMIN B12 DEFICIENCY VITAMIN D DEFICIENCY RIGHT HUMERUS FX 05/2017 ABDOMINAL HERNIA JEONG'S CYST LEFT LEG WITH THIGH PAIN CHRONIC PAIN on chronic opiates ALLERGIES: Please see below. REVIEW OF SYSTEMS: Negative except as per HPI. HOME MEDICATIONS: Please see below. PHYSICAL EXAMINATION: VITAL SIGNS: See below LABORATORY DATA: See below. MICROBIOLOGY: Please see below. A/P: 70 year old female with extensive PMHx presents for several day history of general malaise, with falls. #falls - PT/OT - fall precautions - telemetry monitoring #recent L2 fracture/chronic pain - will reduce dosage of opioids #bradycardia - telemetry monitoring - patient had recent echocardiogram #HFpEF - grossly compensated #IDDM2 with peripheral neuropathy #HTN - home meds with hold parameters #CAD s/p PCI in 2018 #hypothyroid #HLD #Cirrhosis of liver - thought to be from [place] #chronic troponinemia #DVT prophylaxis Vital Signs Vital Signs Date Time Temp Pulse Resp B/P (MAP) Pulse Ox O2 Delivery O2 Flow Rate FiO2 05/30/20 13:34 45 99 05/30/20 13:30 189/87 (121) 05/30/20 11:28 96.2 18 Room Air Laboratory Data Labs 24H Laboratory Tests 2 05/30/20 11:50: Immature Granulocyte % (Auto) 0.2, Neutrophils (%) (Auto) 50.5, Lymphocytes (%) (Auto) 30.5, Monocytes (%) (Auto) 8.0, Eosinophils (%) (Auto) 9.7H, Basophils (%) (Auto) 1.1H, Neutrophils # (Auto) 4.5, Lymphocytes # (Auto) 2.7, Monocytes # (Auto) 0.7, Eosinophils # (Auto) 0.9H, Basophils # (Auto) 0.1, Nucleated Red Blood Cells % (auto) 0.0, Anion Gap 10, Glomerular Filtration Rate > 60.0, Lactic Acid Level 3.9*H, Calcium Level 8.7L, Total Creatine Kinase 54, Creatine Kinase MB 1.9, Creatine Kinase MB Relative Index 3.52, Troponin I 0.19H CBC/BMP Laboratory Tests 05/30/20 11:50 Home Medications Scheduled Aspirin (Aspirin EC) 81 Mg Tablet.dr, 81 MG PO DAILY Atorvastatin Calcium (Atorvastatin Calcium) 20 Mg Tab, 20 MG PO DAILY Carvedilol (Carvedilol) 6.25 Mg Tablet, 6.25 MG PO BID Duloxetine Hcl (Duloxetine HCl) 30 Mg Capsule.dr, 30 MG PO DAILY Empagliflozin (Jardiance) 10 Mg Tablet, 10 MG PO DAILY Ferrous Sulfate (Ferrous Sulfate) 325 Mg Tablet.dr, 325 MG PO BID Gabapentin (Gabapentin) 100 Mg Capsule, 100 MG PO BID Insulin Detemir (Levemir) 100 Unit/1 Ml Vial, 38 UNITS SC BID Insulin Human Lispro (Novolog) 100 Unit/1 Ml Vial, 6 UNITS SC AC Levothyroxine Sodium (Synthroid) 25 Mcg Tab, 25 MCG PO DAILY Losartan Potassium (Losartan Potassium) 50 Mg Tablet, 75 MG PO DAILY Metformin HCl (Metformin HCl ER) 500 Mg Tab.er.24h, 1,000 MG PO BID Pantoprazole Sodium (Pantoprazole Sodium) 40 Mg Tablet.dr, 40 MG PO DAILY Sucralfate (Sucralfate) 1 Gm Tablet, 1 GM PO TID Tizanidine HCl (Tizanidine HCl) 4 Mg Cap, 4 MG PO BID Torsemide (Torsemide) 20 Mg Tablet, 20 MG PO DAILY Scheduled PRN Hydrocodone/Acetaminophen (Hydrocodone-Acetamin 5-325 mg) 1 Each Tablet, 1 TAB PO TID PRN for PAIN Menthol (Biofreeze) 118 Ml Gel..ml., 1 APLCT TOP for PAIN APPLIES TO RIGHT LEG AND HIP Allergies Coded Allergies: gatifloxacin (Verified Allergy, Mild, 05/30/20) A-FIB/CHADSVASC A-FIB History Current/History of A-Fib/PAF?: No CARLOS WERNER MD May 30, 2020 13:58
--- NOTE | 2020-05-30 14:34 | REP ---
INDICATION: near syncope w fall. COMPARISON: 05/15/2020. TECHNIQUE: CT BRAIN PERFORMED IN THE AXIAL PLANE. CORONAL RECONSTRUCTION IMAGES ARE PERFORMED. FINDINGS: There is mild atrophy. There is no midline shift or mass effect. Jaramillo-white differentiation is well maintained. There is no acute intracranial hemorrhage or extra-axial fluid collection. No skull fracture is seen. There vascular calcifications in the carotid siphons. The visualized paranasal sinuses and mastoid air cells are well aerated. IMPRESSION: No acute intracranial hemorrhage, midline shift or mass effect. No evidence of skull fracture. <Electronically signed by Tan Jaramillo > 05/30/20 [id number]
[2020-05-30] MEDS ORDERED: LOSA50TA88 PO (14:45)
[2020-05-30] MEDS ORDERED: DEXTROSE 50% 50 ML SYRINGE IV PRN (15:10)
[2020-05-30] MEDS ORDERED: GLUCAGON INJ 1MG VIAL SC PRN (15:10)
[2020-05-30] MEDS ORDERED: GLUCOSE 4GM CHEW TABLET PO PRN (15:10)
[2020-05-30] MEDS ORDERED: PILL CUTTER 1 EACH XX PRN (15:30)
[2020-05-30] MEDS: SUCRALFATE 1 GM TAB PO SCH ×2 (16:00→21:51)
[2020-05-30 17:14] LABS: RSV AMPLIFICATION NEGATIVE (NEGATIVE)
[2020-05-30] MEDS: HumaLOG INSULIN (NovoLOG) PER UNIT SC SCH ×2 (17:30→21:00)
[2020-05-30] MEDS ORDERED: FUROSEMIDE 20MG/2ML VIAL (J1940) IV ONE (18:00)
[2020-05-30 20:15] VITALS: BP 170/92
[2020-05-30] MEDS ORDERED: CARVedilol 6.25 MG TAB PO SCH (21:00)
[2020-05-30] MEDS ORDERED: metFORMIN XR 500MG TAB *GLUCOPHAGE XR PO SCH (21:00)
[2020-05-30] MEDS: LEVEMIR (INSULIN DETEMIR) 1 UNITS/0.01ML SC SCH (21:00)
[2020-05-30] MEDS: NORCO, ANEXSIA 5/325MG TABLET (HYDROcodone/ACETAMINOPHEN) PO PRN (21:39)
[2020-05-30] MEDS: FERROUS SULFATE 325MG TAB PO SCH (21:51)
[2020-05-30] MEDS: tiZANidine 4 MG TAB PO SCH (21:51)
[2020-05-30] MEDS: GABAPENTIN 100 MG CAP PO SCH (21:51)
[2020-05-30] MEDS ORDERED: CAPTOpril 3.125 MG PER 1/4 TABLET PO ONE (22:30)
[2020-05-31] VITALS: BP 143/62
[2020-05-31 04:00] VITALS: BP 146/67
[2020-05-31 06:04] LABS: HEMATOCRIT 40.9 % (36.0-47.0); HEMOGLOBIN 13.3 g/dl (12.0-15.5); MEAN CORPUSCULAR HEMOGLOBIN 27.6 pg (27.0-33.0); MEAN CORPUSCULAR HGB CONC 32.5 g/dl (32.0-36.5); MEAN CORPUSCULAR VOLUME 84.9 fl (80.0-96.0); PLATELET COUNT, AUTOMATED 204 10^3/uL (150-450); RED BLOOD COUNT 4.82 10^6/uL (4.00-5.40); WHITE BLOOD COUNT 7.4 10^3/uL (4.0-10.0)
[2020-05-31] MEDS: LEVOTHYROXINE 25MCG TABLET (0.025MG) PO SCH (06:11)
[2020-05-31 06:51] LABS: BLOOD UREA NITROGEN 20 MG/DL (7-18); CALCIUM LEVEL 8.4 MG/DL (8.8-10.2); CARBON DIOXIDE LEVEL 25 MEQ/L (21-32); CHLORIDE LEVEL 105 MEQ/L (98-107); CREATININE FOR GFR 0.64 MG/DL (0.55-1.30); GLOMERULAR FILTRATION RATE > 60.0 (>45); GLUCOSE, FASTING 194 MG/DL (70-100); POTASSIUM SERUM 3.3 MEQ/L (3.5-5.1); SODIUM LEVEL 142 MEQ/L (136-145)
[2020-05-31] MEDS ORDERED: POTASSIUM CHLORIDE 10 MEQ SR TABLET PO ONE (07:15)
[2020-05-31 08:00] VITALS: BP 137/79
[2020-05-31] MEDS: FERROUS SULFATE 325MG TAB PO SCH ×2 (08:33→20:20)
[2020-05-31] MEDS: PANTOPRAZOLE 40MG TAB (PROTONIX) PO SCH (08:34)
[2020-05-31] MEDS: ATORVASTATIN 20 MG TAB PO SCH (08:34)
[2020-05-31] MEDS: NORCO, ANEXSIA 5/325MG TABLET (HYDROcodone/ACETAMINOPHEN) PO PRN ×2 (08:34→21:19)
[2020-05-31] MEDS: ASPIRIN 81MG ENTERIC TABLET PO SCH (08:34)
[2020-05-31] MEDS: SUCRALFATE 1 GM TAB PO SCH ×3 (08:34→20:20)
[2020-05-31] MEDS: LOSARTAN 50MG TABLET PO SCH (08:35)
[2020-05-31] MEDS: tiZANidine 4 MG TAB PO SCH ×2 (08:35→20:20)
[2020-05-31] MEDS: GABAPENTIN 100 MG CAP PO SCH ×2 (08:35→20:20)
[2020-05-31] MEDS: DULoxetine 30 MG CAP (CYMBALTA) PO SCH (08:35)
[2020-05-31] MEDS: HumaLOG INSULIN (NovoLOG) PER UNIT SC SCH ×4 (08:36→20:21)
[2020-05-31] MEDS: LEVEMIR (INSULIN DETEMIR) 1 UNITS/0.01ML SC SCH ×2 (08:36→20:21)
[2020-05-31] MEDS: LIDOCAINE 5% (LIDODERM) PATCH TD SCH (08:45)
[2020-05-31] MEDS ORDERED: TORSEMIDE 20 MG TAB PO SCH (09:00)
[2020-05-31 12:00] VITALS: BP_SYST 104; BP_SYST 131; BP_SYST 137; BP_DIAS 50; BP_DIAS 60; BP_DIAS 65
--- NOTE | 2020-05-31 12:03 | IPNPDOC ---
Text Note Date of Service The patient was seen on 05/31/20. 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 She received IV fluid hydration and she eventually became hypertensive. Patient was admitted to the hospital service for further evaluation and treatment. Patient was seen and examined at the bedside. Currently patient denies any chest pain, shortness of breath, palpitations, nausea, vomiting, abdominal pain or diarrhea. Patient does report some back pain and reports that hydrocodone/tizanidine have helped with her pain. Objective: Vitals (See below) General: Lying in bed, appears comfortable - but is reporting back pain, AAOx3 HEENT: NC, AT CVS: RRR, +S1S2 Lungs: Fair air entry b/l, -w/r/r Abdomen: Soft, ND, NT Extremities: - Edema, - Calf tenderness Imaging: CT Head 05/30: No acute intracranial hemorrhage, midline shift or mass effect. No evidence of skull fracture. CXR 05/30: Mild bibasilar fibro atelectatic change. Assessment and plan: Multiple falls / Generalized weakens - Presented to ER for generalized weakness / falls - Imaging noted above - Continue fall precautions and PT & OT Recent L2 fracture/chronic pain - c/w Opiates / Tizanidine - Will add Lidocaine patch Bradycardia - Will DC Carvedilol - c/w telemetry monitoring HFpEF - No evidence of exacerbation - Will discontinue Torsemide for now IDDM2 with peripheral neuropathy - c/w ISS and Levemir - c/w Gabapentin HTN - c/w Losartan with hold parameters - Will DC Carvedilol - Will hold Torsemide CAD s/p PCI (2018) - c/w ASA, Atorvastatin Hypothyroid - c/w Levothyroxine DLP - c/w Atorvastatin Cirrhosis of liver - 2/2 NASG Chronic troponin elevation Mood disorder - c/w Duloxetine GERD - c/w Protonix / Carafate DVT prophylaxis - c/w TEDs/Sequentials VS,Fishbone, I+O VS, Fishbone, I+O Laboratory Tests 05/31/20 05:36 Vital Signs Date Time Temp Pulse Resp B/P (MAP) Pulse Ox O2 Delivery O2 Flow Rate FiO2 05/31/20 09:04 18 95 Room Air 05/31/20 08:35 137/79 05/31/20 08:00 98.5 65 I&O- Last 24 Hours up to 6 AM 05/31/20 06:00 Intake Total 1620 ml Output Total 750 ml Balance 870 ml LEAH KHALIL MD May 31, 2020 12:03
[2020-05-31 16:00] VITALS: BP 148/67
--- NOTE | 2020-05-31 17:52 | ECGEPIP ---
[facility] - ED Test Date: 2020-05-30 Pat Name: MARIANA SMITH Department: Room: - Gender: Female Credit Resolution Representative: reji : [id number] Requested By: Shaq Cleveland Order Number: [id number] Reading MD: Antonina Hazel Measurements Intervals [place] Rate: 45 P: 9 CA: 168 QRS: -12 QRSD: 106 T: 111 QT: 522 QTc: 451 Interpretive Statements Sinus bradycardia Minimal voltage criteria for LVH, may be normal variant ( Miah product ) Possible Anterior infarct , age undetermined ivcd NSTTW abnormalities decreased rate 05/15/20 Electronically Signed on 05-31-2020 17:52:00 EDT by Antonina Hazel
[2020-05-31 20:00] VITALS: BP 136/73
[2020-05-31] MEDS: **NOTE PATIENT COMMENT** MISC XX SCH (20:22)
[2020-06-01] VITALS: BP 142/70
[2020-06-01 04:00] VITALS: BP 133/67
[2020-06-01 05:51] LABS: BLOOD UREA NITROGEN 19 MG/DL (7-18); CALCIUM LEVEL 8.8 MG/DL (8.8-10.2); CARBON DIOXIDE LEVEL 29 MEQ/L (21-32); CHLORIDE LEVEL 109 MEQ/L (98-107); CREATININE FOR GFR 0.61 MG/DL (0.55-1.30); GLOMERULAR FILTRATION RATE > 60.0 (>45); GLUCOSE, FASTING 66 MG/DL (70-100); POTASSIUM SERUM 3.1 MEQ/L (3.5-5.1); SODIUM LEVEL 143 MEQ/L (136-145)
[2020-06-01] MEDS: LEVOTHYROXINE 25MCG TABLET (0.025MG) PO SCH (05:59)
[2020-06-01] MEDS: NORCO, ANEXSIA 5/325MG TABLET (HYDROcodone/ACETAMINOPHEN) PO PRN ×2 (05:59→21:24)
[2020-06-01 07:29] VITALS: BP 152/78
[2020-06-01] MEDS: HumaLOG INSULIN (NovoLOG) PER UNIT SC SCH ×4 (07:30→21:00)
[2020-06-01] MEDS: LEVEMIR (INSULIN DETEMIR) 1 UNITS/0.01ML SC SCH ×2 (07:58→22:17)
[2020-06-01] MEDS ORDERED: LEVEMIR (INSULIN DETEMIR) 1 UNITS/0.01ML SC ONE (08:00)
[2020-06-01] MEDS ORDERED: POTASSIUM CHLORIDE 10 MEQ SR TABLET PO ONE (08:00)
[2020-06-01] MEDS: ASPIRIN 81MG ENTERIC TABLET PO SCH (09:04)
[2020-06-01] MEDS: LOSARTAN 50MG TABLET PO SCH (09:05)
[2020-06-01] MEDS: FERROUS SULFATE 325MG TAB PO SCH ×2 (09:05→21:23)
[2020-06-01] MEDS: tiZANidine 4 MG TAB PO SCH ×2 (09:06→21:23)
[2020-06-01] MEDS: PANTOPRAZOLE 40MG TAB (PROTONIX) PO SCH (09:06)
[2020-06-01] MEDS: SUCRALFATE 1 GM TAB PO SCH ×3 (09:06→21:23)
[2020-06-01] MEDS: GABAPENTIN 100 MG CAP PO SCH ×2 (09:07→21:24)
[2020-06-01] MEDS: LIDOCAINE 5% (LIDODERM) PATCH TD SCH (09:07)
[2020-06-01] MEDS: ATORVASTATIN 20 MG TAB PO SCH (09:07)
[2020-06-01] MEDS: DULoxetine 30 MG CAP (CYMBALTA) PO SCH (09:07)
[2020-06-01 11:55] VITALS: BP 142/68
--- NOTE | 2020-06-01 12:49 | IPNPDOC ---
Text Note Date of Service The patient was seen on 06/01/20. 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 She received IV fluid hydration and she eventually became hypertensive. Patient was admitted to the hospital service for further evaluation and treatment. Patient was seen and examined at the bedside. Patient reports that she has been working with physical therapy and occupational therapy. Denies any chest pain, shortness of breath, palpitations reported that yesterday, which was working with physical therapy. She did do well. Denies any diarrhea, or urinary discomfort. Objective: Vitals (See below) General: Sitting up in bed, appears to be comfortable, not in any acute distress, awake, alert and oriented 3 HEENT: NC, AT CVS: +S1S2 Lungs: Fair air entry b/l, no wheezing, rhonchi or rales Abdomen: Soft, nondistended and nontender Extremities: Lower extremities are without any edema, - Calf tenderness Imaging: CT Head 05/30: No acute intracranial hemorrhage, midline shift or mass effect. No evidence of skull fracture. CXR 05/30: Mild bibasilar fibro atelectatic change. Assessment and plan: Multiple falls / Generalized weakens - Presented to ER for generalized weakness / falls - Imaging noted above - Continue fall precautions and PT & OT Recent L2 fracture/chronic pain - c/w Opiates / Tizanidine - c/w Lidocaine patch Bradycardia - s/p Carvedilol - c/w telemetry monitoring HFpEF - No evidence of exacerbation - Torsemide on hold IDDM2 with peripheral neuropathy - c/w ISS and Levemir - c/w Gabapentin HTN - c/w Losartan with hold parameters - s/p Carvedilol (re: Bradycardia) - Will continue to hold Torsemide; will resume within 24-48 hours CAD s/p PCI (2018) - c/w ASA, Atorvastatin Hypothyroid - c/w Levothyroxine DLP - c/w Atorvastatin Cirrhosis of liver - 2/2 ARNOLD Chronic troponin elevation Mood disorder - c/w Duloxetine GERD - c/w Protonix / Carafate DVT prophylaxis - c/w TEDs/Sequentials Disposition: - Patient will likely require rehabilitation VS,Maria Teresa, I+O VS, Maria Teresa, I+O Laboratory Tests 06/01/20 05:06 Vital Signs Date Time Temp Pulse Resp B/P (MAP) Pulse Ox O2 Delivery O2 Flow Rate FiO2 06/01/20 11:55 97.7 51 18 142/68 (92) 97 Room Air I&O- Last 24 Hours up to 6 AM 06/01/20 06:00 Intake Total 1680 ml Output Total 2070 ml Balance -390 ml LEAH KHALIL MD Jun 01, 2020 12:49
[2020-06-01] MEDS: NYSTATIN 100,000 UNITS/GM TOPICAL PWD 15 GM TOP SCH ×2 (14:47→21:25)
[2020-06-01 15:41] VITALS: BP 148/68
[2020-06-01 20:00] VITALS: BP 150/80
[2020-06-01] MEDS: **NOTE PATIENT COMMENT** MISC XX SCH (21:20)
[2020-06-02] VITALS: BP 148/70
[2020-06-02 04:00] VITALS: BP 160/62
[2020-06-02] MEDS: LEVOTHYROXINE 25MCG TABLET (0.025MG) PO SCH (05:27)
[2020-06-02] MEDS: HumaLOG INSULIN (NovoLOG) PER UNIT SC SCH ×4 (07:13→20:49)
[2020-06-02 07:29] VITALS: BP 164/92
[2020-06-02] MEDS: LIDOCAINE 5% (LIDODERM) PATCH TD SCH (09:32)
[2020-06-02] MEDS: LEVEMIR (INSULIN DETEMIR) 1 UNITS/0.01ML SC SCH ×2 (09:33→20:54)
[2020-06-02] MEDS: ASPIRIN 81MG ENTERIC TABLET PO SCH (09:33)
[2020-06-02] MEDS: NYSTATIN 100,000 UNITS/GM TOPICAL PWD 15 GM TOP SCH ×2 (09:33→20:56)
[2020-06-02] MEDS: FERROUS SULFATE 325MG TAB PO SCH ×2 (09:34→20:55)
[2020-06-02] MEDS: DULoxetine 30 MG CAP (CYMBALTA) PO SCH (09:34)
[2020-06-02] MEDS: SUCRALFATE 1 GM TAB PO SCH ×3 (09:34→20:54)
[2020-06-02] MEDS: PANTOPRAZOLE 40MG TAB (PROTONIX) PO SCH (09:34)
[2020-06-02] MEDS: tiZANidine 4 MG TAB PO SCH ×2 (09:34→20:55)
[2020-06-02] MEDS: GABAPENTIN 100 MG CAP PO SCH ×2 (09:34→20:55)
[2020-06-02] MEDS: ATORVASTATIN 20 MG TAB PO SCH (09:34)
[2020-06-02] MEDS: LOSARTAN 50MG TABLET PO SCH (09:35)
[2020-06-02] MEDS: NORCO, ANEXSIA 5/325MG TABLET (HYDROcodone/ACETAMINOPHEN) PO PRN ×2 (09:35→20:56)
[2020-06-02 09:55] LABS: BASO # 0.1 10^3/uL (0.0-0.2); BASO % 1.5 % (0.0-1.0); EOS # 0.8 10^3/uL (0.0-0.5); EOS % 11.6 % (0.0-3.0); HEMATOCRIT 39.7 % (36.0-47.0); LYMPH # 2.1 10^3/uL (1.5-5.0); MEAN CORPUSCULAR HEMOGLOBIN 27.8 pg (27.0-33.0); MEAN CORPUSCULAR HGB CONC 32.7 g/dl (32.0-36.5); MONO # 0.8 10^3/uL (0.0-0.8); MONO % 11.4 % (2.0-8.0); NEUTROPHILS # 2.9 10^3/uL (1.5-8.5); NEUTROPHILS % 43.2 % (36.0-66.0); PLATELET COUNT, AUTOMATED 181 10^3/uL (150-450); RED BLOOD COUNT 4.67 10^6/uL (4.00-5.40); WHITE BLOOD COUNT 6.7 10^3/uL (4.0-10.0)
--- NOTE | 2020-06-02 10:20 | IPNPDOC ---
Text Note Date of Service The patient was seen on 06/02/20. 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 She received IV fluid hydration and she eventually became hypertensive. Patient was admitted to the hospital service for further evaluation and treatment. Patient was seen and examined at the bedside. Patient is seen lying in bed comfortable, not in any acute distress. Denies any chest pain or palpitations. Reports that she has been working with physical therapy. Denies any abdominal pain, nausea, diarrhea, or urinary discomfort. Objective: Vitals (See below) General: Patient is laying in bed, appears to be comfortable, awake, alert and oriented 3 HEENT: NC, AT CVS: +S1S2 Lungs: Air entry is fair bilaterally without any auscultated wheezing, rhonchi or crackles Abdomen: Abdomen is soft without any appreciated distention or tenderness Extremities: Lower extremities do not reveal any edema, - Calf tenderness Imaging: CT Head 05/30: No acute intracranial hemorrhage, midline shift or mass effect. No evidence of skull fracture. CXR 05/30: Mild bibasilar fibro atelectatic change. Assessment and plan: Multiple falls / Generalized weakens - Presented to ER for generalized weakness / falls - Imaging noted above - c/w precautions and PT & OT; recommending rehabilitation Recent L2 fracture/chronic pain - c/w Opiates / Tizanidine - c/w Lidocaine patch Bradycardia - s/p Carvedilol - c/w telemetry monitoring HFpEF - No evidence of exacerbation - Torsemide on hold; will resume at lower dose today IDDM2 with peripheral neuropathy and hypoglycemia - c/w ISS and Levemir; will reduce dose - c/w Gabapentin HTN - c/w Losartan with hold parameters - s/p Carvedilol (re: Bradycardia) - Will resume Torsemide at reduced dose CAD s/p PCI (2018) - c/w ASA, Atorvastatin Hypothyroid - TSH elevated; will repeat - c/w Levothyroxine; will increase dose if TSH still elevated DLP - c/w Atorvastatin Cirrhosis of liver - 2/2 ARNOLD Chronic troponin elevation Mood disorder - c/w Duloxetine GERD - c/w Protonix / Carafate DVT prophylaxis - c/w TEDs/Sequentials Disposition: - Downgrade to med / surg - Patient will likely require rehabilitation VS,Fishbone, I+O VS, Fishbone, I+O Laboratory Tests 06/02/20 09:08 Vital Signs Date Time Temp Pulse Resp B/P (MAP) Pulse Ox O2 Delivery O2 Flow Rate FiO2 06/02/20 09:35 164/92 06/02/20 09:35 18 Room Air 06/02/20 07:29 96.7 61 96 I&O- Last 24 Hours up to 6 AM 06/02/20 06:00 Intake Total 765 ml Output Total 2700 ml Balance -1935 ml LEAH KHALIL MD Jun 02, 2020 10:20
[2020-06-02 10:26] LABS: BLOOD UREA NITROGEN 14 MG/DL (7-18); CALCIUM LEVEL 8.5 MG/DL (8.8-10.2); CARBON DIOXIDE LEVEL 26 MEQ/L (21-32); CHLORIDE LEVEL 109 MEQ/L (98-107); CREATININE FOR GFR 0.61 MG/DL (0.55-1.30); GLOMERULAR FILTRATION RATE > 60.0 (>45); GLUCOSE, FASTING 328 MG/DL (70-100); MAGNESIUM LEVEL 1.6 MG/DL (1.8-2.4); POTASSIUM SERUM 3.8 MEQ/L (3.5-5.1); SODIUM LEVEL 143 MEQ/L (136-145)
[2020-06-02 11:11] LABS: FREE T4 1.08 NG/DL (0.76-1.46)
[2020-06-02] MEDS ORDERED: MAG SULF 1GM/100ML (MAG RUN) 1 GM in IV 1 EA IV ONE (13:00)
[2020-06-02] MEDS: TORSEMIDE 10 MG TABLET PO SCH (13:45)
[2020-06-02 15:36] VITALS: BP 154/68
[2020-06-02 20:00] VITALS: BP 142/74
[2020-06-02] MEDS: **NOTE PATIENT COMMENT** MISC XX SCH (20:56)
[2020-06-03] MEDS: NORCO, ANEXSIA 5/325MG TABLET (HYDROcodone/ACETAMINOPHEN) PO PRN (05:42)
[2020-06-03] MEDS: LEVOTHYROXINE 25MCG TABLET (0.025MG) PO SCH (05:43)
[2020-06-03 06:00] VITALS: BP 150/84
[2020-06-03 06:53] LABS: BASO # 0.1 10^3/uL (0.0-0.2); BASO % 1.2 % (0.0-1.0); EOS # 0.9 10^3/uL (0.0-0.5); EOS % 12.1 % (0.0-3.0); HEMATOCRIT 38.9 % (36.0-47.0); HEMOGLOBIN 12.7 g/dl (12.0-15.5); LYMPH % 39.9 % (24.0-44.0); MEAN CORPUSCULAR HEMOGLOBIN 27.5 pg (27.0-33.0); MEAN CORPUSCULAR HGB CONC 32.6 g/dl (32.0-36.5); MEAN CORPUSCULAR VOLUME 84.2 fl (80.0-96.0); MONO # 0.8 10^3/uL (0.0-0.8); MONO % 10.2 % (2.0-8.0); NEUTROPHILS # 2.8 10^3/uL (1.5-8.5); NEUTROPHILS % 36.5 % (36.0-66.0); PLATELET COUNT, AUTOMATED 178 10^3/uL (150-450); RED BLOOD COUNT 4.62 10^6/uL (4.00-5.40); WHITE BLOOD COUNT 7.6 10^3/uL (4.0-10.0)
[2020-06-03 07:11] LABS: BLOOD UREA NITROGEN 15 MG/DL (7-18); CALCIUM LEVEL 8.3 MG/DL (8.8-10.2); CARBON DIOXIDE LEVEL 27 MEQ/L (21-32); CHLORIDE LEVEL 111 MEQ/L (98-107); CREATININE FOR GFR 0.42 MG/DL (0.55-1.30); GLOMERULAR FILTRATION RATE > 60.0 (>45); GLUCOSE, FASTING 131 MG/DL (70-100); MAGNESIUM LEVEL 1.7 MG/DL (1.8-2.4); POTASSIUM SERUM 3.7 MEQ/L (3.5-5.1); SODIUM LEVEL 143 MEQ/L (136-145)
[2020-06-03] MEDS: ASPIRIN 81MG ENTERIC TABLET PO SCH (08:21)
[2020-06-03 08:23] VITALS: BP 152/84
[2020-06-03] MEDS: tiZANidine 4 MG TAB PO SCH (08:23)
[2020-06-03] MEDS: DULoxetine 30 MG CAP (CYMBALTA) PO SCH (08:23)
[2020-06-03] MEDS: TORSEMIDE 10 MG TABLET PO SCH (08:23)
[2020-06-03] MEDS: SUCRALFATE 1 GM TAB PO SCH (08:23)
[2020-06-03] MEDS: LOSARTAN 50MG TABLET PO SCH (08:23)
[2020-06-03] MEDS: FERROUS SULFATE 325MG TAB PO SCH (08:24)
[2020-06-03] MEDS: PANTOPRAZOLE 40MG TAB (PROTONIX) PO SCH (08:24)
[2020-06-03] MEDS: GABAPENTIN 100 MG CAP PO SCH (08:24)
[2020-06-03] MEDS: ATORVASTATIN 20 MG TAB PO SCH (08:24)
[2020-06-03] MEDS: LEVEMIR (INSULIN DETEMIR) 1 UNITS/0.01ML SC SCH (08:25)
[2020-06-03] MEDS: HumaLOG INSULIN (NovoLOG) PER UNIT SC SCH ×2 (08:25→11:49)
[2020-06-03] MEDS ORDERED: TORS10TA3 PO (11:06)
[2020-06-03] MEDS ORDERED: AMLO1TAB24 PO (11:06)
[2020-06-03] MEDS ORDERED: MAG SULF 1GM/100ML (MAG RUN) 1 GM in IV 1 EA IV ONE (11:10)
[2020-06-03] MEDS ORDERED: INSUDET SC ×2 (11:11→12:09)
--- NOTE | 2020-06-03 11:13 | DS.PDOC ---
Discharge Summary General Date of Admission May 30, 2020 at 15:00 Date of Discharge 06/03/2020 Discharge Summary PROCEDURES PERFORMED DURING STAY: [None]. 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 She received IV fluid hydration and she eventually became hypertensive. Patient was admitted to the hospital service for further evaluation and treatment. HOSPITAL COURSE: Multiple falls / Generalized weakens - Presented to ER for generalized weakness / falls - Imaging noted above - c/w PT & OT; will be discharged home with services - Patient has been advised to follow-up with primary care provider within the next 7 days Recent L2 fracture/chronic pain - c/w Opiates / Tizanidine - c/w Lidocaine patch Bradycardia - s/p Carvedilol - c/w telemetry monitoring HFpEF - No evidence of exacerbation - Torsemide resumed at lower dose IDDM2 with peripheral neuropathy and hypoglycemia - c/w ISS and Levemir at reduce dose - Will adjust long acting insulin on discharge at lower dose - c/w Gabapentin HTN - c/w Losartan with hold parameters - s/p Carvedilol (re: Bradycardia) - c/w Torsemide at reduced dose CAD s/p PCI (2018) - c/w ASA, Atorvastatin Hypothyroid - Repeat thyroid function is within normal limits - c/w Levothyroxine; will increase dose if TSH still elevated DLP - c/w Atorvastatin Cirrhosis of liver - 2/2 ARNOLD Chronic troponin elevation Mood disorder - c/w Duloxetine GERD - c/w Protonix / Carafate DVT prophylaxis - c/w TEDs/Sequentials DISCHARGE MEDICATIONS: Please see below. ALLERGIES: Please see below. PHYSICAL EXAMINATION ON DISCHARGE: Vitals (See below) General: Patient is lying in bed. Patient be comfortable, oriented to person, place and time HEENT: NC, AT CVS: +S1S2 Lungs: There is fair air entry bilaterally without any evidence of crackles, w heezing or rhonchi Abdomen: Again, abdomen is soft without any distention or tenderness noted Extremities: No edema LABORATORY DATA: Please see below. IMAGING: CT Head 05/30: No acute intracranial hemorrhage, midline shift or mass effect. No evidence of skull fracture. CXR 05/30: Mild bibasilar fibro atelectatic change. ACTIVITY: [As tolerated]. DISCHARGE PLAN: Follow-up with primary care provider within the next 7 days Follow-up with cardiology within the next 7 days Remain compliant with treatment plan and medications Return to the ER if you experience any problems DISPOSITION: Home with services DISCHARGE CONDITION: [Stable]. TIME SPENT ON DISCHARGE: 35 minutes. Vital Signs/I&Os Vital Signs Date Time Temp Pulse Resp B/P (MAP) Pulse Ox O2 Delivery O2 Flow Rate FiO2 06/03/20 08:23 152/84 06/03/20 06:12 16 Room Air 06/03/20 06:00 98.3 57 97 I&O- Last 24 Hours up to 6 AM 06/03/20 06:00 Intake Total 880 ml Output Total 1600 ml Balance -720 ml Laboratory Data Labs 24H Laboratory Tests 2 06/02/20 11:26: Bedside Glucose (Misc Panel) 237H 06/02/20 16:21: Bedside Glucose (Misc Panel) 189H 06/02/20 20:17: Bedside Glucose (Misc Panel) 169H 06/03/20 06:26: Immature Granulocyte % (Auto) 0.1, Neutrophils (%) (Auto) 36.5, Lymphocytes (%) (Auto) 39.9, Monocytes (%) (Auto) 10.2H, Eosinophils (%) (Auto) 12.1H, Basophils (%) (Auto) 1.2H, Neutrophils # (Auto) 2.8, Lymphocytes # (Auto) 3.0, Monocytes # (Auto) 0.8, Eosinophils # (Auto) 0.9H, Basophils # (Auto) 0.1, Nucleated Red Blood Cells % (auto) 0.0, Anion Gap 5L, Glomerular Filtration Rate > 60.0, Calcium Level 8.3L, Magnesium Level 1.7L CBC/BMP Laboratory Tests 06/03/20 06:26 FSBS Laboratory Tests Test 06/02/20 11:26 06/02/20 16:21 06/02/20 20:17 Range/Units Bedside Glucose (Misc Panel) 237 189 169 80-115 MG/DL Discharge Medications Scheduled Aspirin (Aspirin EC) 81 Mg Tablet.dr, 81 MG PO DAILY, (Reported) Atorvastatin Calcium (Atorvastatin Calcium) 20 Mg Tab, 20 MG PO DAILY, (Reported) Duloxetine Hcl (Duloxetine HCl) 30 Mg Capsule.dr, 30 MG PO DAILY, (Reported) Empagliflozin (Jardiance) 10 Mg Tablet, 10 MG PO DAILY, (Reported) Ferrous Sulfate (Ferrous Sulfate) 325 Mg Tablet.dr, 325 MG PO BID, (Reported) Gabapentin (Gabapentin) 100 Mg Capsule, 100 MG PO BID, (Reported) Insulin Detemir (Levemir) 100 Unit/1 Ml Vial, 38 UNITS SC BID, (Reported) Insulin Human Lispro (Novolog) 100 Unit/1 Ml Vial, 6 UNITS SC AC, (Reported) Levothyroxine Sodium (Synthroid) 25 Mcg Tab, 25 MCG PO DAILY, (Reported) Losartan Potassium (Losartan Potassium) 50 Mg Tablet, 75 MG PO DAILY, (Reported) Metformin HCl (Metformin HCl ER) 500 Mg Tab.er.24h, 1,000 MG PO BID, (Reported) Pantoprazole Sodium (Pantoprazole Sodium) 40 Mg Tablet.dr, 40 MG PO DAILY, (Reported) Sucralfate (Sucralfate) 1 Gm Tablet, 1 GM PO TID, (Reported) Tizanidine HCl (Tizanidine HCl) 4 Mg Cap, 4 MG PO BID, (Reported) Torsemide (Torsemide) 10 Mg Tablet, 10 MG PO DAILY Scheduled PRN Hydrocodone/Acetaminophen (Hydrocodone-Acetamin 5-325 mg) 1 Each Tablet, 1 TAB PO TID PRN for PAIN, (Reported) Menthol (Biofreeze) 118 Ml Gel..ml., 1 APLCT TOP for PAIN, (Reported) APPLIES TO RIGHT LEG AND HIP Allergies Coded Allergies: gatifloxacin (Verified Allergy, Mild, 05/30/20) LEAH KHALIL MD Jun 03, 2020 11:13
[2020-06-03] MEDS: LIDOCAINE 5% (LIDODERM) PATCH TD SCH (13:28)
[2020-06-03] MEDS: NYSTATIN 100,000 UNITS/GM TOPICAL PWD 15 GM TOP SCH (13:28)
== END 2020-06-03 17:02 | disposition home health service (06) | DRG 92 ==
LOC: M ED 11:19 → EDBD 11:19 → M ED INP 15:00 → ENRESERV 15:18 → M PCU 20:11 → M MSPAV 06-02 22:56
PROVIDERS: ADMIT Internal Medicine; ATTEND Internal Medicine
DX: R29.6 Repeated falls (principal); I50.32 Chronic diastolic (congestive) heart failure; R00.1 Bradycardia, unspecified; E11.649 Type 2 diabetes mellitus with hypoglycemia without coma; E11.42 Type 2 diabetes mellitus with diabetic polyneuropathy; I11.0 Hypertensive heart disease with heart failure; I25.10 Atherosclerotic heart disease of native coronary artery without angina pectoris; Z98.61 Coronary angioplasty status; E03.9 Hypothyroidism, unspecified; E78.5 Hyperlipidemia, unspecified; K75.81 Nonalcoholic steatohepatitis (NASH); M48.061 Spinal stenosis, lumbar region without neurogenic claudication; M48.02 Spinal stenosis, cervical region; M79.7 Fibromyalgia; E53.8 Deficiency of other specified B group vitamins; E55.9 Vitamin D deficiency, unspecified; M71.22 Synovial cyst of popliteal space [Baker], left knee; G89.29 Other chronic pain; K74.60 Unspecified cirrhosis of liver; R79.89 Other specified abnormal findings of blood chemistry; R53.1 Weakness; Z79.4 Long term (current) use of insulin; Z79.82 Long term (current) use of aspirin; Z79.899 Other long term (current) drug therapy; Z88.1 Allergy status to other antibiotic agents; Z87.891 Personal history of nicotine dependence; K21.9 Gastro-esophageal reflux disease without esophagitis; F39 Unspecified mood [affective] disorder

== ENCOUNTER → 2020-07-06 | Outpatient (REF) | payer OTHER ==
[~2020-07-06] MED LIST changes: +TORS10TA3 PO
[2020-07-06 14:33] LABS: BLOOD UREA NITROGEN 16 MG/DL (7-18); CALCIUM LEVEL 8.8 MG/DL (8.8-10.2); CARBON DIOXIDE LEVEL 31 MEQ/L (21-32); CHLORIDE LEVEL 105 MEQ/L (98-107); CHOLESTEROL LEVEL 159 MG/DL (<200); CHOLESTEROL RISK RATIO 3.785 (<5); CREATININE FOR GFR 0.74 MG/DL (0.55-1.30); GLOMERULAR FILTRATION RATE > 60.0 (>45); GLUCOSE, FASTING 188 MG/DL (70-100); HDL CHOLESTEROL 42 MG/DL (>40); LDL CHOLESTEROL 84 MG/DL (<100); NON-HDL-C 117 MG/DL; POTASSIUM SERUM 3.4 MEQ/L (3.5-5.1); SODIUM LEVEL 143 MEQ/L (136-145); TOTAL 25(OH) VITAMIN D 23.4 NG/ML (30.0-100.0); TRIGLYCERIDES LEVEL 166 MG/DL (<150); VITAMIN B12 LEVEL 633 PG/ML (247-911)
[2020-07-06 14:39] LABS: HEMOGLOBIN A1c 9.2 %
== END ==
LOC: M PLALAB 09:22
PROVIDERS: ATTEND Family Medicine
DX: E11.8 Type 2 diabetes mellitus with unspecified complications (principal); E78.2 Mixed hyperlipidemia; I12.9 Hypertensive chronic kidney disease with stage 1 through stage 4 chronic kidney disease, or unspecified chronic kidney disease; N18.31 Chronic kidney disease, stage 3a; E03.9 Hypothyroidism, unspecified; E55.9 Vitamin D deficiency, unspecified

== ENCOUNTER → 2020-07-20 | Outpatient (REF) | payer OTHER ==
[2020-07-20 13:31] LABS: BLOOD UREA NITROGEN 11 MG/DL (7-18); CALCIUM LEVEL 8.4 MG/DL (8.8-10.2); CARBON DIOXIDE LEVEL 32 MEQ/L (21-32); CHLORIDE LEVEL 104 MEQ/L (98-107); CREATININE FOR GFR 0.58 MG/DL (0.55-1.30); GLOMERULAR FILTRATION RATE > 60.0 (>45); GLUCOSE, FASTING 132 MG/DL (70-100); POTASSIUM SERUM 3.2 MEQ/L (3.5-5.1); SODIUM LEVEL 143 MEQ/L (136-145)
== END ==
LOC: M SFHCPLAZ 12:03
PROVIDERS: ATTEND Physician Assistant
DX: R03.0 Elevated blood-pressure reading, without diagnosis of hypertension (principal)

== ENCOUNTER 2020-07-31 12:37 | Emergency (ER) | payer MEDICARE, OTHER ==
[~2020-07-31] VITALS: Ht 165.1 cm; Wt 86.8 kg
--- NOTE | 2020-07-31 15:09 | REP ---
INDICATION: trauma Nontraumatic hip pain. COMPARISON: None. TECHNIQUE: Frontal view of the pelvis with neutral and frog lateral views of the right and left hip. FINDINGS: Osseous structures and joint spaces are intact and normal. Hip joints appear symmetric on frontal pelvic radiograph. No acute fracture dislocation. No evidence for healed injury. No significant degenerative or congenital abnormalities are appreciated. Surrounding soft tissues are unremarkable. IMPRESSION: Normal pelvis and bilateral hip series. <Electronically signed by Zbigniew Davis > 07/31/20 [id number]
--- NOTE | 2020-07-31 15:16 | REP ---
INDICATION: trauma COMPARISON: 05/30/2020 TECHNIQUE: Portable AP view of the chest FINDINGS: The mediastinum and cardiac silhouette are stable and within normal limits for portable technique. The lung lloyd are clear without acute consolidation, effusion, or pneumothorax. Skeletal structures are intact. IMPRESSION: No acute cardiopulmonary process appreciated. <Electronically signed by Zbigniew Davis > 07/31/20 [id number]
--- NOTE | 2020-07-31 15:20 | REP ---
INDICATION: trauma COMPARISON: None. TECHNIQUE: AP and lateral right tibia/fibula. FINDINGS: Age-related osteopenia and degenerative changes. Vascular calcifications noted. No acute fracture or dislocation identified. No subcutaneous emphysema or foreign body. IMPRESSION: . No acute fracture or dislocation. <Electronically signed by Zbigniew Davis > 07/31/20 [id number]
--- NOTE | 2020-07-31 15:24 | REP ---
INDICATION: trauma COMPARISON: None. TECHNIQUE: Limited AP and lateral views of the right mid/distal femur FINDINGS: Visualized portions of the femur demonstrate age-related degenerative changes. No obvious acute fracture or dislocation. Peripheral vascular disease noted. No subcutaneous emphysema or foreign body. IMPRESSION: . No acute fracture or dislocation to the visualized right femur. <Electronically signed by Zbigniew Davis > 07/31/20 [id number]
--- NOTE | 2020-07-31 15:28 | REP ---
INDICATION: trauma COMPARISON: 05/30/2020 TECHNIQUE: Axial noncontrast images from the skull base to the thoracic inlet with coronal reformations. This CT examination was performed using the following dose reduction techniques: Automated exposure control, adjustment of mA and/or kv according to the patient's size, and use of iterative reconstruction technique. FINDINGS: Atrophy with periventricular leukomalacia and microvascular ischemic changes are appreciated. The ventricles and sulci are symmetric. Jaramillo-white differentiation is maintained. There is no evidence for acute intracranial hemorrhage, mass/mass effect, pathology or infarction. No extra-axial fluid collection. Calvarium is intact. Paranasal sinuses and mastoid air cells are clear. IMPRESSION: Atrophy and microvascular ischemic changes. No acute intracranial hemorrhage, infarction, or mass/mass effect. <Electronically signed by Zbigniew Davis > 07/31/20 [id number]
--- NOTE | 2020-07-31 15:30 | REP ---
INDICATION: trauma COMPARISON: None. TECHNIQUE: Axial noncontrast images from the skull base to the thoracic inlet with coronal and sagittal re-formations This CT examination was performed using the following dose reduction techniques: Automated exposure control, adjustment of mA and/or kv according to the patient's size, and use of iterative reconstruction technique. FINDINGS: Examination is limited by motion artifact. Age-related osteopenia and advanced multilevel degenerative disc osteophyte complexes are appreciated. No obvious acute fracture/compression injury or subluxation. Posterior elements and spinous processes are grossly intact. Spinal canal appears grossly patent. Paravertebral soft tissues are within normal limits. IMPRESSION: Limited by motion artifact. Advanced multilevel degenerative spondylosis. No obvious acute fracture/compression injury or subluxation. <Electronically signed by Zbigniew Davis > 07/31/20 [id number]
[2020-07-31] MEDS ORDERED: PERCOCET 5MG/325MG TAB PO ONE (17:05)
[2020-07-31 18:54] VITALS: BP 135/63
== END 2020-07-31 18:56 | disposition home or self-care (01) ==
LOC: M ED 12:37 → EDBD 12:37 → M ED 18:56
DX: S70.00XA Contusion of unspecified hip, initial encounter (principal); W01.198A Fall on same level from slipping, tripping and stumbling with subsequent striking against other object, initial encounter; Y92.9 Unspecified place or not applicable; Y93.9 Activity, unspecified; Y99.9 Unspecified external cause status; I25.10 Atherosclerotic heart disease of native coronary artery without angina pectoris; I50.9 Heart failure, unspecified; E11.9 Type 2 diabetes mellitus without complications; I10 Essential (primary) hypertension; E07.9 Disorder of thyroid, unspecified; M79.7 Fibromyalgia; E53.8 Deficiency of other specified B group vitamins; K74.60 Unspecified cirrhosis of liver; Z95.5 Presence of coronary angioplasty implant and graft; Z87.891 Personal history of nicotine dependence; I67.89 Other cerebrovascular disease; M47.812 Spondylosis without myelopathy or radiculopathy, cervical region; Z79.82 Long term (current) use of aspirin; Z79.4 Long term (current) use of insulin; Z79.899 Other long term (current) drug therapy; Z88.8 Allergy status to other drugs, medicaments and biological substances

== ENCOUNTER 2020-08-27 16:02 | Observation (INO) | payer MEDICARE ==
[~2020-08-27] VITALS: Ht 165.1 cm; Wt 80.1 kg
[2020-08-27 17:07] LABS: BASO # 0.1 10^3/uL (0.0-0.2); BASO % 0.8 % (0.0-1.0); EOS # 0.8 10^3/uL (0.0-0.5); HEMATOCRIT 47.8 % (36.0-47.0); HEMOGLOBIN 16.2 g/dl (12.0-15.5); LYMPH # 3.6 10^3/uL (1.5-5.0); LYMPH % 27.3 % (24.0-44.0); MEAN CORPUSCULAR HEMOGLOBIN 28.9 pg (27.0-33.0); MEAN CORPUSCULAR HGB CONC 33.9 g/dl (32.0-36.5); MEAN CORPUSCULAR VOLUME 85.4 fl (80.0-96.0); MONO # 1.3 10^3/uL (0.0-0.8); MONO % 10.1 % (2.0-8.0); NEUTROPHILS # 7.3 10^3/uL (1.5-8.5); PLATELET COUNT, AUTOMATED 222 10^3/uL (150-450); WHITE BLOOD COUNT 13.2 10^3/uL (4.0-10.0)
[2020-08-27] MEDS ORDERED: MORPHINE 2 MG/ML 1ML VIAL (J2270) IV ONE (17:40)
--- NOTE | 2020-08-27 17:40 | REP ---
INDICATION: musculoskeletal back pain COMPARISON: 07/31/2020 TECHNIQUE: Portable AP view of the chest FINDINGS: The mediastinum and cardiac silhouette are stable and within normal limits for portable technique. The lung lloyd are clear without acute consolidation, effusion, or pneumothorax. Skeletal structures are intact. IMPRESSION: No acute cardiopulmonary process appreciated. <Electronically signed by Zbigniew Davis > 08/27/20 [id number]
[2020-08-27 17:46] LABS: MAGNESIUM LEVEL 1.6 MG/DL (1.8-2.4); THYROID STIMULATING HORMONE 2.27 uIU/ML (0.358-3.740)
--- NOTE | 2020-08-27 18:16 | REPVR ---
PROCEDURE INFORMATION: Exam: CT Head Without Contrast Exam date and time: 08/27/2020 5:29 PM Age: 70 years old Clinical indication: Injury or trauma; Fall; Blunt trauma (contusions or hematomas); Additional info: S/P fall with scalp hematoma TECHNIQUE: Imaging protocol: Computed tomography of the head without contrast. Radiation optimization: All CT scans at this facility use at least one of these dose optimization techniques: automated exposure control; mA and/or kV adjustment per patient size (includes targeted exams where dose is matched to clinical indication); or iterative reconstruction. COMPARISON: CT Head without contrast 07/31/2020 2:59 PM FINDINGS: Brain: There is mild diffuse cerebellar atrophy. There is [id number] parenchymal volume loss. White matter changes are demonstrated in the subcortical, centrum semiovale and periventricular white matter consistent with chronic age related small vessel ischemic changes. Cerebral ventricles: The degree of ventricular dilatation is normal for age and/or degree of atrophy present. Paranasal sinuses: Visualized sinuses are unremarkable. No fluid levels. Mastoid air cells: Visualized mastoid air cells are well aerated. Vasculature: Atherosclerotic calcifications are demonstrated in the intracranial carotid arteries bilaterally as well as in the vertebral basilar system. Bones/joints: Unremarkable. No acute fracture. Soft tissues: Large right posterior parietal soft tissue hematoma/laceration. IMPRESSION: 1. There is mild diffuse cerebellar atrophy. 2. There is wwli-[id number] parenchymal volume loss. White matter changes are demonstrated in the subcortical, centrum semiovale and periventricular white matter consistent with chronic age related small vessel ischemic changes. 3. The degree of ventricular dilatation is normal for age and/or degree of atrophy present. 4. Large right posterior parietal soft tissue hematoma/laceration. No skull fracture. Electronically signed by: Avni Ramires On 08/27/2020 18:16:28 PM
--- NOTE | 2020-08-27 18:22 | REPVR ---
PROCEDURE INFORMATION: Exam: CT Cervical Spine Without Contrast Exam date and time: 08/27/2020 5:29 PM Age: 70 years old Clinical indication: Injury or trauma; Fall; Blunt trauma; Additional info: Fall with headtrauma TECHNIQUE: Imaging protocol: Computed tomography images of the cervical spine without contrast. Radiation optimization: All CT scans at this facility use at least one of these dose optimization techniques: automated exposure control; mA and/or kV adjustment per patient size (includes targeted exams where dose is matched to clinical indication); or iterative reconstruction. COMPARISON: CT Spine,cervical w/o contrast 07/31/2020 2:59 PM FINDINGS: Bones/joints: Reversal of cervical lordosis. Disc space narrowing with intervertebral osteophytes at C5-C6 and C6-C7. Discs/Spinal canal/Neural foramina: Moderate to severe bilateral foraminal narrowing at C5 and C6 secondary to osteophytic encroachment. Disc osteophyte complexes at C5-C6 and C6-C7 result in moderate cord impingement at C5-C6 secondary to a posterior hard disc protrusion and mild cord impingement at C6-C7 secondary to broadly bulging annulus. Auditory system: Retained secretions in both external auditory canals. Lungs: Lung apices are normal. Soft tissues: Unremarkable. IMPRESSION: 1. Disc osteophyte complexes at C5-C6 and C6-C7 result in moderate cord impingement at C5-C6 secondary to a posterior hard disc protrusion and mild cord impingement at C6-C7 secondary to broadly bulging annulus. 2. No acute findings. Electronically signed by: Avni Ramires On 08/27/2020 18:21:46 PM
[2020-08-27] MEDS ORDERED: hydrALAZINE 20MG/ML 1ML VIAL (J0360 PER 20MG) IV ONE (18:40)
[2020-08-27] MEDS ORDERED: hydrALAZINE 20MG/ML 1ML VIAL (J0360 PER 20MG) IV STA (19:21)
[2020-08-27] MEDS ORDERED: NORCO, ANEXSIA 5/325MG TABLET (HYDROcodone/ACETAMINOPHEN) PO ONE (19:25)
[2020-08-27] MEDS: HumaLOG INSULIN (NovoLOG) PER UNIT SC SCH (21:00)
[2020-08-27 22:00] LABS: RSV AMPLIFICATION NEGATIVE (NEGATIVE)
[2020-08-27] MEDS ORDERED: INSUDET SC (22:07)
[2020-08-27] MEDS ORDERED: TORS10TA3 PO (22:07)
[2020-08-27] MEDS ORDERED: SPIR-10 PO (22:08)
[2020-08-27] MEDS ORDERED: HYDR-4514 PO (22:23)
[2020-08-28] VITALS (8 sets, daily range): BP systolic 144–190; BP diastolic 50–96
[2020-08-28] MEDS ORDERED: ACETAMINOPHEN TAB 650MG DOSE (2X325MG) PO PRN (00:05)
[2020-08-28] MEDS ORDERED: DEXTROSE 50% 50 ML SYRINGE IV PRN (00:25)
[2020-08-28] MEDS ORDERED: GLUCAGON INJ 1MG VIAL SC PRN (00:25)
[2020-08-28] MEDS ORDERED: GLUCOSE 4GM CHEW TABLET PO PRN (00:25)
[2020-08-28] MEDS ORDERED: ANEXSIA, NORCO 7.5MG/325MG TABLET(HYDROCODONE/APAP) PO PRN (00:25)
[2020-08-28] MEDS ORDERED: tiZANidine 4 MG TAB PO PRN (00:25)
[2020-08-28] MEDS: LEVEMIR (INSULIN DETEMIR) 1 UNITS/0.01ML SC SCH ×3 (02:41→20:50)
[2020-08-28] MEDS: FERROUS SULFATE 325MG TAB PO SCH ×3 (02:41→20:48)
[2020-08-28] MEDS: GABAPENTIN 100 MG CAP PO SCH ×3 (02:42→20:49)
[2020-08-28] MEDS: SUCRALFATE 1 GM TAB PO SCH ×4 (02:42→20:48)
[2020-08-28] MEDS: metFORMIN XR 500MG TAB *GLUCOPHAGE XR PO SCH ×3 (02:43→20:48)
[2020-08-28] MEDS ORDERED: MAG SULF 1GM/100ML (MAG RUN) 1 GM in IV 1 EA IV ONE (03:20)
[2020-08-28] MEDS ORDERED: PILL CUTTER 1 EACH XX PRN (05:15)
[2020-08-28] MEDS: SPIRONOLACTONE 25 MG TAB PO SCH ×2 (05:36→17:06)
[2020-08-28] MEDS: LOSARTAN 50MG TABLET PO SCH (05:37)
[2020-08-28] MEDS: HumaLOG INSULIN (NovoLOG) PER UNIT SC SCH ×4 (07:30→20:50)
[2020-08-28] MEDS ORDERED: amLODIPine 5 MG TAB PO ONE (07:45)
[2020-08-28] MEDS: LEVOTHYROXINE 25MCG TABLET (0.025MG) PO SCH (07:55)
[2020-08-28] MEDS: TORSEMIDE 10 MG TABLET PO SCH (09:05)
[2020-08-28] MEDS: ATORVASTATIN 20 MG TAB PO SCH (09:05)
[2020-08-28] MEDS: PANTOPRAZOLE 40MG TAB (PROTONIX) PO SCH (09:05)
[2020-08-28] MEDS: DULoxetine 30 MG CAP (CYMBALTA) PO SCH (09:05)
--- NOTE | 2020-08-28 11:18 | IPNPDOC ---
Subjective Date Seen The patient was seen on 08/28/20. Subjective Chief Complaint/HPI Mrs. 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 At time of this note, the H&P has not be transcribed. Patient tells me that she was getting her electric wheelchair/scooter out of the car and she fell. Denies lightheadedness and remembers going down. Blood pressure still elevated this morning. Will add on amlodipine. Objective Physical Examination General Exam: Positive: Alert, Cooperative Eye Exam: Negative: Sclera icteric Neck Exam: Positive: Supple Chest Exam: Positive: Clear to auscultation Heart Exam: Positive: Rate Normal, Regular Rhythm Abdomen Exam: Positive: Normal bowel sounds, Soft Neuro Exam: Positive: Normal Speech Psych Exam: Positive: Anxiety Assessment /Plan Assessment Mrs. 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 CT head negative for ICH and patient is not on anticoagulation at home. Will work on controlling blood pressure. Plan/VTE VTE Prophylaxis Ordered?: Yes Plan 1. Hypertensive Urgency -Continue losartan and spironolactone (and torsemide) -Added on amlodipine 2. Diabetes mellitus -Continue home regimen -Carbohydrate consistent diet 3. Hypothyroidism -Continue levothyroxine 4. Cirrhosis 2/2 ARNOLD -Continue torsemide and spironolactone 5. CAD s/p stent -No active chest pain -Continue losartan, aspirin, and atorvastatin 6. Anxiety/depression -Continue duloxetine 7. GERD -Continue pantoprazole and sucralfate 8. DVT ppx -SCD Disposition: Pending control of blood pressure VS, I&O, 24H, Fishbone Vital Signs/I&O Vital Signs Date Time Temp Pulse Resp B/P (MAP) Pulse Ox O2 Delivery O2 Flow Rate FiO2 08/28/20 09:06 84 190/87 08/28/20 07:46 96.9 18 97 Room Air I&O- Last 24 Hours up to 6 AM 08/28/20 06:00 Intake Total 200 ml Output Total 200 ml Balance 0 ml Laboratory Data 24H LABS Laboratory Tests 2 08/27/20 16:57: Immature Granulocyte % (Auto) 0.8, Neutrophils (%) (Auto) 55.0, Lymphocytes (%) (Auto) 27.3, Monocytes (%) (Auto) 10.1H, Eosinophils (%) (Auto) 6.0H, Basophils (%) (Auto) 0.8, Neutrophils # (Auto) 7.3, Lymphocytes # (Auto) 3.6, Monocytes # (Auto) 1.3H, Eosinophils # (Auto) 0.8H, Basophils # (Auto) 0.1, Nucleated Red Blood Cells % (auto) 0.0, Thyroid Stimulating Hormone (TSH) 2.400 08/27/20 16:58: Thyroid Stimulating Hormone (TSH) 2.270, Magnesium Level 1.6L 08/27/20 17:05: POC Glucose (Misc Panel) 225H, POC Sodium (Misc Panel) 141, POC Potassium (Misc Panel) 4.4, POC Chloride (Misc Panel) 106, POC Total CO2 (Misc Panel) 22.0L, POC Blood Urea Nitrogen (Misc Panel 21, POC Ionized Calcium (Misc Panel) 4.7, POC Creatinine (Misc Panel) 0.6, POC Hematocrit (Misc Panel) 46.0 08/27/20 21:14: Coronavirus (COVID-19)(PCR) NEGATIVE, Influenza Type A (RT-PCR) NEGATIVE, Influenza Type B (RT-PCR) NEGATIVE, Respiratory Syncytial Virus (PCR) NEGATIVE 08/28/20 05:29: Magnesium Level 2.0 CBC/BMP Laboratory Tests 08/27/20 16:57 HRAOON HUTTON 4, 2021 11:18
--- NOTE | 2020-08-28 18:53 | HPE ---
HISTORY AND PHYSICAL DATE OF ADMISSION: 08/27/2020 CHIEF COMPLAINT: Status post fall with scalp hematoma and hypertensive urgency. HISTORY OF PRESENT ILLNESS: This is a 70-year-old female who was at [facility]. She was trying to get her electric wheelchair scooter out and she fell. She denied any lightheadedness. She remembers falling. She states she had no loss of consciousness. She did hit the back of her head. She was not dizzy. She had no blurred or double vision. She came to the emergency room. Upon arrival, blood pressure was noted as 229/107, pulse 80, respirations 22, temp 97.1. Pulse ox was 96% on room air. She was given 2 mg of morphine IV, hydralazine 10 mg IV stat at 1920 and in the ER, a repeat of Hydralazine 10 mg IV at 1839. Her blood pressure improved slightly and by 1946, was down to 200/85. There was pulse of 105, respiratory 18. Laboratory studies: White count was slightly elevated at 13.2, hemoglobin 15.2, hematocrit 47.8. TSH was 2.4. Magnesium was 1.6. Nonfasting blood sugar was 225, sodium 121, potassium 4.4, chloride 106. BUN was 21. Creatinine was 0.6. COVID was negative. Head CT was done, showed mild diffuse cerebellar ectopy, mild to moderate parenchymal volume loss, large right posterior parietal soft tissue, hematoma, no skull fracture. Cervical spine CT: No acute findings. She had disc osteophyte complex with C5-C6, C6-C7 resulting in moderate cord impingement, no acute findings. Chest x-ray: No acute cardiopulmonary process appreciated. Assessment was done and patient will be admitted observation status to the PCU unit with hypertensive urgency to the hospitalist service to Dr. Zachery Cole. PRIMARY CARE PROVIDER: Es Mei MD IMPORT SPECIALIST: Daryl Mejia MD ALLERGIES: GATIFLOXACIN. SOCIAL HISTORY: She is . She rarely drinks alcohol. She does not smoke cigarettes. She does not use recreational drugs. PAST MEDICAL HISTORY: 1. Diabetes, type 2. 2. Hypertension. 3. Hypercholesterolemia. 4. GERD. 5. Hypothyroidism. 6. Hypertension. 7. Carpal tunnel. 8. Fibromyalgia. 9. Coronary artery disease. 10. Cirrhosis/ARNOLD. 11. Chronic pain. PAST SURGICAL HISTORY: 1. Non-STEMI 07/08/17. 2. Cardiac cath with a stent to the LAD. 3. Colonoscopy and endoscopy, 07/2017. 4. Tonsillectomy as a child. 5. , 1981. 6. Cholecystectomy in 1984. 7. Hysterectomy for endometrial polyp, fistula repair in perineal area in 1992. 8. EGD, Dr. Zambrano. 9. Gastric erosions. 10. Mild gastropathy, 07/2017. 11. Cataract surgery, both eyes, 2016. FAMILY HISTORY: Father , of a bleeding ulcer. Mother , diabetes type 2, Kidney failure, acromegaly. Siblings alive, 73-year-old brother has MS, diabetes, hypertension. Denies any known family history of breast or colon cancer. HOME MEDICATIONS: 1. Aspirin 81 mg p.o. daily. 2. NovoLog subcu t.i.d. 3. Jardiance 10 mg p.o. daily. 4. Atorvastatin calcium 20 mg p.o. daily. 5. Duloxetine 30 mg p.o. daily. 6. Ferrous sulfate 325 p.o. b.i.d. 7. Gabapentin 100 mg p.o. b.i.d. 8. Hydrocodone 7.5-325 one p.o. b.i.d., max daily dose four tablets. 9. Levemir 25 units subcu b.i.d. 10. Levothyroxine 25 mcg daily. 11. Losartan 50 mcg daily. 12. Metformin 500 mg tablets 1000 p.o. b.i.d. 13. Pantoprazole 40 mg p.o. daily. 14. Spironolactone 25 mg p.o. b.i.d. 15. Sucralfate 1 gm p.o. t.i.d. 16. Tizanidine 1 mg p.o. b.i.d. p.r.n. muscle spasm. 17. Torsemide 10 mg p.o. daily. REVIEW OF SYSTEMS: No complaint of headache, complains of soreness at the site of the hematoma in her parietal scalp area. No blurred or double vision. No fevers, no chills, no tinnitis, no difficulty swallowing, no lightheadedness, no vertigo. No masses. Cardiovascular: No complaints of chest pain, shortness of breath, palpitations or edema. Respiratory: No complaints of cough, sputum production, hemoptysis, no orthopnea, no wheezed. GI: No current complaints of nausea, vomiting, diarrhea, abdominal pain, hematochezia, melena or rectal bleeding. : No hematuria, dysuria or frequency. Musculoskeletal: No joint swelling. Endocrine: History of diabetes and hypothyroidism. Hematological: History of anemia. Neurological history: Fibromyalgia. No history of seizures. Psychological: No anxiety, depression or suicidal ideation. PHYSICAL EXAMINATION: GENERAL: A 60-year-old, alert, oriented, cooperative female. Height 65 inches. Weight 78.74 kilograms. The patient is alert and oriented x3. VITAL SIGNS: Blood pressure 172/88, pulse 90, respirations 16, temp 97.2, O2 sat 94% on room air. HEENT: Pupils equal and reactive to light. EOMs intact. Sclera was clear. Conjunctiva was normal. No facial asymmetry. Palpable hematoma, parietal scalp area. Pharynx, tongue, gums pink and moist. Tongue is midline. NECK: Supple without lymphadenopathy, no thyromegaly, no goiter. Carotids 2+ without bruit. CHEST: Clear to auscultation without wheeze or retraction. HEART: Regular. ABDOMEN: Benign. Bowel sounds positive. AND RECTAL: Not done. EXTREMITIES: No clubbing, cyanosis or edema. Peripheral pulses equal and palpable bilaterally. SKIN: Warm and dry. IMPRESSION: Patient will be admitted observation status to the hospitalist service, Dr. Cole for hypertensive urgency, blood pressure control. PLAN: 1. Hypertensive emergency. We will continue her Losartan, Spironolactone, torsemide, add antihypertensive as needed. 2. Diabetes. Continue longacting basal Levemir. Fingerstick blood sugars a.c. and h.s. for coverage. Continue carbohydrate diet. 3. Hypothyroidism. TSH therapeutic. Continue levothyroxine. 4. History of cirrhosis. ARNOLD. Continue torsemide and spironolactone. 5. History of coronary artery disease. No complaints of chest pain. Continue ARB, aspirin and statin. 6. History of anxiety and depression. No suicidal ideation. Continue duloxetine. 7. History of GERD. Continue pantoprazole and sucralfate. 8. DVT prophylaxis. SCDs. The patient will be admitted observation status to the hospitalist service. GLORIA
[2020-08-29 00:12] VITALS: BP 172/80
[2020-08-29 04:00] VITALS: BP 162/78
[2020-08-29 05:36] LABS: BASO # 0.1 10^3/uL (0.0-0.2); BASO % 0.8 % (0.0-1.0); EOS # 0.6 10^3/uL (0.0-0.5); EOS % 6.1 % (0.0-3.0); HEMATOCRIT 42.8 % (36.0-47.0); HEMOGLOBIN 14.5 g/dl (12.0-15.5); LYMPH # 3.1 10^3/uL (1.5-5.0); MEAN CORPUSCULAR HEMOGLOBIN 29.1 pg (27.0-33.0); MEAN CORPUSCULAR HGB CONC 33.9 g/dl (32.0-36.5); MEAN CORPUSCULAR VOLUME 85.8 fl (80.0-96.0); MONO # 1.1 10^3/uL (0.0-0.8); MONO % 10.8 % (2.0-8.0); NEUTROPHILS # 5.1 10^3/uL (1.5-8.5); PLATELET COUNT, AUTOMATED 151 10^3/uL (150-450); RED BLOOD COUNT 4.99 10^6/uL (4.00-5.40); WHITE BLOOD COUNT 9.9 10^3/uL (4.0-10.0)
[2020-08-29 06:06] LABS: ALBUMIN 2.6 GM/DL (3.2-5.2); ALT/SGPT 36 U/L (12-78); BILIRUBIN,TOTAL 0.8 MG/DL (0.2-1.0); BLOOD UREA NITROGEN 19 MG/DL (7-18); CALCIUM LEVEL 8.7 MG/DL (8.8-10.2); CARBON DIOXIDE LEVEL 23 MEQ/L (21-32); CHLORIDE LEVEL 108 MEQ/L (98-107); CREATININE FOR GFR 0.55 MG/DL (0.55-1.30); GLOMERULAR FILTRATION RATE > 60.0 (>45); GLUCOSE, FASTING 90 MG/DL (70-100); POTASSIUM SERUM 3.6 MEQ/L (3.5-5.1); SODIUM LEVEL 142 MEQ/L (136-145); TOTAL PROTEIN 6.1 GM/DL (6.4-8.2)
[2020-08-29] MEDS: LEVOTHYROXINE 25MCG TABLET (0.025MG) PO SCH (06:36)
[2020-08-29] MEDS: HumaLOG INSULIN (NovoLOG) PER UNIT SC SCH (07:30)
[2020-08-29] MEDS ORDERED: AMLO1TAB24 PO (07:33)
[2020-08-29 08:00] VITALS: BP 162/84
[2020-08-29] MEDS ORDERED: amLODIPine 5 MG TAB PO SCH (09:00)
[2020-08-29] MEDS: LEVEMIR (INSULIN DETEMIR) 1 UNITS/0.01ML SC SCH (09:56)
[2020-08-29] MEDS: metFORMIN XR 500MG TAB *GLUCOPHAGE XR PO SCH (09:56)
[2020-08-29 09:57] VITALS: BP 162/84
[2020-08-29] MEDS: LOSARTAN 50MG TABLET PO SCH (09:58)
[2020-08-29] MEDS: SPIRONOLACTONE 25 MG TAB PO SCH (09:59)
[2020-08-29] MEDS: TORSEMIDE 10 MG TABLET PO SCH (09:59)
[2020-08-29] MEDS: SUCRALFATE 1 GM TAB PO SCH (09:59)
[2020-08-29] MEDS: DULoxetine 30 MG CAP (CYMBALTA) PO SCH (09:59)
[2020-08-29] MEDS: ATORVASTATIN 20 MG TAB PO SCH (10:00)
[2020-08-29] MEDS: GABAPENTIN 100 MG CAP PO SCH (10:00)
[2020-08-29] MEDS: PANTOPRAZOLE 40MG TAB (PROTONIX) PO SCH (10:00)
[2020-08-29] MEDS: FERROUS SULFATE 325MG TAB PO SCH (10:00)
[2020-08-29 11:30] VITALS: BP 146/67
--- NOTE | 2020-08-29 23:31 | DS.PDOC ---
Discharge Summary General Date of Admission Aug 27, 2020 at 16:03 Date of Discharge Aug 29, 2020 Discharge Summary PROCEDURES PERFORMED DURING STAY: None ADMITTING DIAGNOSES: 1. Hypertensive Urgency 2. Diabetes mellitus 3. Hypothyroidism 4. Cirrhosis 2/2 ARNOLD 5. CAD s/p stent 6. Anxiety/depression 7. GERD DISCHARGE DIAGNOSES: 1. Hypertensive Urgency 2. Diabetes mellitus 3. Hypothyroidism 4. Cirrhosis 2/2 ARNOLD 5. CAD s/p stent 6. Anxiety/depression 7. GERD COMPLICATIONS/CHIEF COMPLAINT: Hypertensive Urgency,Scalp Contusion. HISTORY OF PRESENT ILLNESS: " This is a 70[facility] She was trying to get her electric wheelchair scooter out and she fell. She denied any lightheadedness. She remembers falling. She states she had no loss of consciousness. She did hit the back of her head. She was not dizzy. She had no blurred or double vision. She came to the emergency room. Upon arrival, blood pressure was noted as 229/107, pulse 80, respirations 22, temp 97.1. Pulse ox was 96% on room air. She was given 2 mg of morphine IV, hydralazine 10 mg IV stat at 192 and in the ER, a repeat of Hydralazine 10 mg IV at 1839. Her blood pressure improved slightly and by 1946, was down to 200/85. There was pulse of 105, respiratory 18. Laboratory studies: White count was slightly elevated at 13.2, hemoglobin 15.2, hematocrit 47.8. TSH was 2.4. Magnesium was 1.6. Nonfasting blood sugar was 225, sodium 121, potassium 4.4, chloride 106. BUN was 21. Creatinine was 0.6. COVID was negative. Head CT was done, showed mild diffuse cerebellar ectopy, mild to moderate parenchymal volume loss, large right posterior parietal soft tissue, hematoma, no skull fracture. Cervical spine CT: No acute findings. She had disc osteophyte complex with C5-C6, C6-C7 resulting in moderate cord impingement, no acute findings. Chest x-ray: No acute cardiopulmonary process appreciated. Assessment was done and patient will be admitted observation status to the PCU unit with hypertensive urgency to the hospitalist service to Dr. Zachery Hutton. " HOSPITAL COURSE: Patient was starting on amlodipine and did well. Blood pressure was better controlled. The following day, she felt better and was discharged home. DISCHARGE MEDICATIONS: Please see below. ALLERGIES: Please see below. PHYSICAL EXAMINATION ON DISCHARGE: VITAL SIGNS: Please see below. GENERAL: Comfortable, in no apparent distress HEENT: Sclera clear, EOMI NECK: Supple CARDIOVASCULAR EXAMINATION: Regular rate and rhythm RESPIRATORY EXAMINATION: Lung clear to auscultation bilaterally ABDOMINAL EXAMINATION: Soft, non-tender, normal bowel sounds PSYCHIATRIC EXAMINATION: Normal mood and affect LABORATORY DATA: Please see below. IMAGING: Radiologist interpretation CT head 1. There is mild diffuse cerebellar atrophy. 2. There is [id number] parenchymal volume loss. White matter changes are demonstrated in the subcortical, centrum semiovale and periventricular white matter consistent with chronic age related small vessel ischemic changes. 3. The degree of ventricular dilatation is normal for age and/or degree of atrophy present. 4. Large right posterior parietal soft tissue hematoma/laceration. No skull fracture. CT cervical spine 1. Disc osteophyte complexes at C5-C6 and C6-C7 result in moderate cord impingement at C5-C6 secondary to a posterior hard disc protrusion and mild cord impingement at C6-C7 secondary to broadly bulging annulus. 2. No acute findings. CXR No acute cardiopulmonary process appreciated. PROGNOSIS: Good ACTIVITY: As tolerated. DIET: Consistent carbohydrate. DISCHARGE PLAN: Home DISPOSITION: 01 Home, Self-Care. DISCHARGE INSTRUCTIONS: 1. Follow up with PCP in 1 week ITEMS TO FOLLOWUP ON ON OUTPATIENT: 1. Blood pressure DISCHARGE CONDITION: Stable. Total time spent on discharge planning, discharge summary, and medication reconciliation: 40 minutes Vital Signs/I&Os Vital Signs Date Time Temp Pulse Resp B/P (MAP) Pulse Ox O2 Delivery O2 Flow Rate FiO2 08/29/20 11:30 146/67 (93) 08/29/20 09:57 81 08/29/20 08:00 97.5 18 96 Room Air I&O- Last 24 Hours up to 6 AM 08/29/20 06:00 Intake Total 840 ml Output Total 400 ml Balance 440 ml Laboratory Data Labs 24H Laboratory Tests 2 08/29/20 05:22: Immature Granulocyte % (Auto) 0.3, Neutrophils (%) (Auto) 51.0, Lymphocytes (%) (Auto) 31.0, Monocytes (%) (Auto) 10.8H, Eosinophils (%) (Auto) 6.1H, Basophils (%) (Auto) 0.8, Neutrophils # (Auto) 5.1, Lymphocytes # (Auto) 3.1, Monocytes # (Auto) 1.1H, Eosinophils # (Auto) 0.6H, Basophils # (Auto) 0.1, Nucleated Red Blood Cells % (auto) 0.0, Anion Gap 11, Glomerular Filtration Rate > 60.0, Calcium Level 8.7L, Total Bilirubin 0.8, Aspartate Amino Transf (AST/SGOT) 35, Alanine Aminotransferase (ALT/SGPT) 36, Alkaline Phosphatase 110, Total Protein 6.1L, Albumin 2.6L, Albumin/Globulin Ratio 0.7L CBC/BMP Laboratory Tests 08/29/20 05:22 Discharge Medications Scheduled Amlodipine Besylate (Amlodipine Besylate) 5 Mg Tablet, 5 MG PO DAILY Aspirin (Aspirin EC) 81 Mg Tablet.dr, 81 MG PO DAILY, (Reported) Atorvastatin Calcium (Atorvastatin Calcium) 20 Mg Tab, 20 MG PO DAILY, (Reported) Duloxetine Hcl (Duloxetine HCl) 30 Mg Capsule.dr, 30 MG PO DAILY, (Reported) Empagliflozin (Jardiance) 10 Mg Tablet, 10 MG PO DAILY, (Reported) Ferrous Sulfate (Ferrous Sulfate) 325 Mg Tablet.dr, 325 MG PO BID, (Reported) Gabapentin (Gabapentin) 100 Mg Capsule, 100 MG PO BID, (Reported) Insulin Detemir (Levemir) 100 Unit/1 Ml Vial, 25 UNITS SC BID, (Reported) Insulin Human Lispro (Novolog) 100 Unit/1 Ml Vial, 1 DOSE SC TID, (Reported) PER SLIDING SCALE Levothyroxine Sodium (Synthroid) 25 Mcg Tab, 25 MCG PO DAILY, (Reported) Losartan Potassium (Losartan Potassium) 50 Mg Tablet, 75 MG PO DAILY, (Reported) Metformin HCl (Metformin HCl ER) 500 Mg Tab.er.24h, 1,000 MG PO BID, (Reported) Pantoprazole Sodium (Pantoprazole Sodium) 40 Mg Tablet.dr, 40 MG PO DAILY, (Reported) Spironolactone (Spironolactone) 25 Mg Tablet, 25 MG PO BID, (Reported) Sucralfate (Sucralfate) 1 Gm Tablet, 1 GM PO TID, (Reported) Torsemide (Torsemide) 10 Mg Tablet, 10 MG PO DAILY, (Reported) Scheduled PRN Hydrocodone/Acetaminophen (Hydrocodone-Acetamin 7.5-325) 1 Each Tablet, 1 TAB PO TID PRN for pain, (Reported) Tizanidine HCl (Tizanidine HCl) 4 Mg Cap, 4 MG PO BID PRN for MUSCLE SPASMS, (Reported) Allergies Coded Allergies: gatifloxacin (Verified Allergy, Mild, 05/30/20) ZACHERY HUTTON DO Aug 29, 2020 23:31
== END 2020-08-29 11:45 | disposition home or self-care (01) ==
LOC: EDBD 16:02 → M ED 16:02 → M ED INP 16:03 → ENRESERV 08-28 01:13 → M ED 08-28 01:54 → M PCU 08-28 01:54
PROVIDERS: ADMIT Internal Medicine; ATTEND Internal Medicine
DX: I16.0 Hypertensive urgency (principal); S00.03XA Contusion of scalp, initial encounter; W01.198A Fall on same level from slipping, tripping and stumbling with subsequent striking against other object, initial encounter; Y92.481 Parking lot as the place of occurrence of the external cause; E11.9 Type 2 diabetes mellitus without complications; E03.9 Hypothyroidism, unspecified; K75.81 Nonalcoholic steatohepatitis (NASH); K74.60 Unspecified cirrhosis of liver; I25.10 Atherosclerotic heart disease of native coronary artery without angina pectoris; Z95.5 Presence of coronary angioplasty implant and graft; F41.9 Anxiety disorder, unspecified; F32.9 Major depressive disorder, single episode, unspecified; K21.9 Gastro-esophageal reflux disease without esophagitis; E78.00 Pure hypercholesterolemia, unspecified; I10 Essential (primary) hypertension; M79.7 Fibromyalgia; Z79.899 Other long term (current) drug therapy; Z79.82 Long term (current) use of aspirin; Z79.4 Long term (current) use of insulin; Z88.1 Allergy status to other antibiotic agents
CPT/HCPCS: 36415; 70450; 71045; 72125; 80047; 80053; 83735; 84443; 85025; 87631; 96374; 96375; 96376; 97161; 97165; 99284; G0378; J0360; J2270; J3475

== ENCOUNTER 2020-09-15 15:54 | Emergency (ER) | payer MEDICARE ==
[~2020-09-15] VITALS: Ht 165.1 cm; Wt 80.9 kg
[~2020-09-15 15:54] MED LIST changes: +HYDR-4514 PO; +SPIR-10 PO
[2020-09-15] MEDS ORDERED: LIDOCAINE 1% MDV 20ML VIAL SC ONE (18:40)
[2020-09-15] MEDS ORDERED: EMLA CREAM 5GM TUBE (LIDOCAINE/PRILOCAINE) TOP ONE (18:40)
--- NOTE | 2020-09-15 19:52 | REP ---
INDICATION: no thyroid, pls eval abscess v hematoma top head. COMPARISON: Is CT head without contrast 08/27/2020. TECHNIQUE: Sonographic evaluation of the posterior right parietooccipital region where the patient had large subcutaneous hematoma in the scalp after trauma on a CT 08/27/2020. Not present on CT 07/31/2020. FINDINGS: The region of the palpable finding posterior central to right prior occipital scalp there is a complex fluid collection 4.3 x 2 x 3.2 cm with no blood flow demonstrated within scattered bright echoes are seen within it other areas hypoechoic and hyperechoic. Mostly well-defined with just a few ill-defined margins. But it is readily discernible from the skull periosteum and surrounding subcutaneous fat. IMPRESSION: A 4.3 x 3.2 x 2 cm complex heterogeneous fluid collection in the posterior right parieto-occipital scalp corresponding to the hematoma seen on trauma head CT 08/27/2020. This represents resorbing hematoma. Infection cannot be excluded on the basis of these images. <Electronically signed by Jake Duarte > [id number]
[2020-09-15] MEDS ORDERED: CEPHALEXIN 500 MG CAP PO ONE (20:30)
[2020-09-15 21:05] VITALS: BP 182/81
[2020-09-15] MEDS ORDERED: CEPH500T PO (21:06)
[2020-09-15] MEDS ORDERED: ANEC4CRE3 TOP (21:09)
== END 2020-09-15 21:14 | disposition home or self-care (01) ==
LOC: M ED 15:54
DX: L02.811 Cutaneous abscess of head [any part, except face] (principal); E11.9 Type 2 diabetes mellitus without complications; I25.2 Old myocardial infarction; I10 Essential (primary) hypertension; N18.9 Chronic kidney disease, unspecified; Z79.4 Long term (current) use of insulin; Z79.899 Other long term (current) drug therapy; Z88.8 Allergy status to other drugs, medicaments and biological substances

== ENCOUNTER 2020-09-16 10:19 | Emergency (ER) | payer MEDICARE ==
[~2020-09-16] VITALS: Ht 162.6 cm; Wt 80.9 kg
[~2020-09-16 10:19] MED LIST changes: +ANEC4CRE3 TOP; +CEPH500T PO
[2020-09-16 11:36] VITALS: BP 154/76
== END 2020-09-16 11:56 | disposition home or self-care (01) ==
LOC: M ED 10:19
DX: Z48.00 Encounter for change or removal of nonsurgical wound dressing (principal); E11.9 Type 2 diabetes mellitus without complications; I25.2 Old myocardial infarction; I10 Essential (primary) hypertension; E78.5 Hyperlipidemia, unspecified; Z95.5 Presence of coronary angioplasty implant and graft; Z79.82 Long term (current) use of aspirin; Z79.4 Long term (current) use of insulin; Z79.899 Other long term (current) drug therapy; Z88.8 Allergy status to other drugs, medicaments and biological substances

== ENCOUNTER 2020-09-17 07:53 | Emergency (ER) | payer MEDICARE ==
[~2020-09-17] VITALS: Ht 162.6 cm; Wt 80.9 kg
--- NOTE | 2020-09-17 10:04 | REP ---
INDICATION: R/O OCCIPITAL FX. COMPARISON: Comparison CT study of the brain is from August 27, 2020.. TECHNIQUE: Helical scanning is acquired. 5 mm axial images were reformatted. Coronal MPR images were generated. FINDINGS: Digital preliminary tail trimmer radiograph is unremarkable. On bone window settings there is no evidence of skull fracture. There is a scalp hematoma containing air consistent with a laceration in the occiput/vertex region posteriorly and to the right of midline. No opaque foreign body is appreciated. There is vascular calcification at the skull base. No intraorbital abnormality is seen. On soft tissue window settings there is mild generalized volume loss again noted unchanged from August 27, 2020. There is no evidence of parenchymal or other intracranial hemorrhage. No extra-axial fluid collection is seen. No mass, infarction, or midline shift is observed. IMPRESSION: Hematoma/laceration in the scalp of the right occiput containing air. No skull fracture or intracranial injury seen. <Electronically signed by Jackson Ruiz > 09/17/20 [id number]
[2020-09-17 10:51] VITALS: BP 192/80
== END 2020-09-17 10:58 | disposition home or self-care (01) ==
LOC: M ED 07:53
DX: Z48.00 Encounter for change or removal of nonsurgical wound dressing (principal); I25.10 Atherosclerotic heart disease of native coronary artery without angina pectoris; I25.2 Old myocardial infarction; E11.40 Type 2 diabetes mellitus with diabetic neuropathy, unspecified; I10 Essential (primary) hypertension; M79.7 Fibromyalgia; N18.9 Chronic kidney disease, unspecified; K58.9 Irritable bowel syndrome, unspecified; K75.81 Nonalcoholic steatohepatitis (NASH); Z87.891 Personal history of nicotine dependence; Z79.82 Long term (current) use of aspirin; Z79.4 Long term (current) use of insulin; Z79.899 Other long term (current) drug therapy; Z88.8 Allergy status to other drugs, medicaments and biological substances

== ENCOUNTER 2020-09-18 10:45 | Emergency (ER) | payer MEDICARE ==
[~2020-09-18] VITALS: Ht 162.6 cm; Wt 79.4 kg
[2020-09-18 13:28] VITALS: BP 176/81
== END 2020-09-18 13:30 | disposition home or self-care (01) ==
LOC: M ED 10:45
DX: Z48.00 Encounter for change or removal of nonsurgical wound dressing (principal); S00.03XD Contusion of scalp, subsequent encounter; X58.XXXD Exposure to other specified factors, subsequent encounter; Y92.9 Unspecified place or not applicable; Y93.9 Activity, unspecified; Y99.9 Unspecified external cause status; I25.10 Atherosclerotic heart disease of native coronary artery without angina pectoris; I25.2 Old myocardial infarction; E11.40 Type 2 diabetes mellitus with diabetic neuropathy, unspecified; N18.9 Chronic kidney disease, unspecified; M79.7 Fibromyalgia; K58.9 Irritable bowel syndrome, unspecified; K75.81 Nonalcoholic steatohepatitis (NASH); Z79.82 Long term (current) use of aspirin; Z79.4 Long term (current) use of insulin; Z79.899 Other long term (current) drug therapy; Z88.8 Allergy status to other drugs, medicaments and biological substances

== ENCOUNTER → 2020-10-03 | Outpatient (CLI) | payer MEDICARE ==
[~2020-10-03] MED LIST changes: +ATEN25TA PO; +DULO60CA35 PO; +HYDR10TAB PO; +HYDR5TAB PO; +ISOS20TA4 PO; -KLOR10TA76 PO; +LEVE1INJ5 SUBQ; +LEVO75TA4 PO; -LISI-898 PO; +LISI5TAB11 PO; +LOSA100T45 PO; -LOSA100T50 PO; +LOSA50TA28 PO; -LOSA50TA88 PO; +NORV5TAB PO; +POTA-136 PO; +SELF1KIT MC
[2020-10-03 11:27] LABS: CALCIUM LEVEL 9.5 MG/DL (8.8-10.2); CREATININE FOR GFR 1.11 MG/DL (0.55-1.30); POTASSIUM SERUM 3.8 MEQ/L (3.5-5.1); THYROID STIMULATING HORMONE 5.42 uIU/ML (0.358-3.740)
[2020-10-03 13:05] LABS: HEMOGLOBIN A1c 11.3 %
== END ==
LOC: M PLALAB 08:05
PROVIDERS: ATTEND Family Medicine
DX: E11.8 Type 2 diabetes mellitus with unspecified complications (principal); I10 Essential (primary) hypertension; E03.9 Hypothyroidism, unspecified

== ENCOUNTER 2020-11-09 08:11 | Emergency (ER) | payer MEDICARE ==
[~2020-11-09] VITALS: Ht 165.1 cm; Wt 79.5 kg
[~2020-11-09 08:11] MED LIST changes: -ATEN25TA PO; -DULO60CA35 PO; -HYDR10TAB PO; -HYDR5TAB PO; -ISOS20TA4 PO; -LEVE1INJ5 SUBQ; -LEVO75TA4 PO; +LISI-898 PO; -LISI5TAB11 PO; -LOSA100T45 PO; +LOSA100T50 PO; -LOSA50TA28 PO; +LOSA50TA88 PO; -NORV5TAB PO; -SELF1KIT MC
[2020-11-09 10:22] VITALS: BP 152/65
== END 2020-11-09 10:23 | disposition home or self-care (01) ==
LOC: EDBD 08:11 → M ED 08:11
DX: M79.602 Pain in left arm (principal); M79.605 Pain in left leg; W19.XXXA Unspecified fall, initial encounter; Y92.099 Unspecified place in other non-institutional residence as the place of occurrence of the external cause; Y93.9 Activity, unspecified; Y99.9 Unspecified external cause status; I25.10 Atherosclerotic heart disease of native coronary artery without angina pectoris; I50.9 Heart failure, unspecified; I11.9 Hypertensive heart disease without heart failure; I10 Essential (primary) hypertension; E78.5 Hyperlipidemia, unspecified; Z87.891 Personal history of nicotine dependence; Z79.4 Long term (current) use of insulin; Z79.899 Other long term (current) drug therapy; Z88.8 Allergy status to other drugs, medicaments and biological substances

== ENCOUNTER → 2020-12-12 | Outpatient (CLI) | payer MEDICARE ==
[2020-12-12 14:33] LABS: APPEARANCE, URINE CLEAR (CLEAR); BACTERIA, URINE AUTO NEGATIVE (NEGATIVE); BILIRUBIN, URINE AUTO NEGATIVE (NEGATIVE); BLOOD, URINE BLOOD NEGATIVE (NEGATIVE); COLOR, URINE STRAW (YELLOW); GLUCOSE, URINE (UA) AUTO 3+ mg/dL (NEGATIVE); KETONE, URINE AUTO NEGATIVE (NEGATIVE); LEUKOCYTE ESTERASE, URINE AUTO NEGATIVE (NEGATIVE); NITRITE, URINE AUTO NEGATIVE (NEGATIVE); PROTEIN, URINE AUTO NEGATIVE (NEGATIVE); RBC, URINE AUTO 0 /HPF (0-3); SPECIFIC GRAVITY URINE AUTO 1.007 (1.002-1.035); SQUAMOUS EPITHELIAL CELL UR AU 0 /HPF (0-6); UROBILINOGEN, URINE AUTO 0.2 mg/dL (0.0-2.0); WBC, URINE AUTO 2 /HPF (0-3)
== END ==
LOC: M PLALAB 11:21
PROVIDERS: ATTEND Family Medicine
DX: E03.9 Hypothyroidism, unspecified (principal); R35.0 Frequency of micturition

== ENCOUNTER → 2020-12-22 | Outpatient (CLI) | payer MEDICARE ==
[~2020-12-22] MED LIST changes: +DULO60CA35 PO; +LEVE1INJ5 SUBQ; +LEVO75TA4 PO
== END ==
LOC: M PT 14:28
PROVIDERS: ATTEND Family Medicine
DX: M47.27 Other spondylosis with radiculopathy, lumbosacral region (principal)

== ENCOUNTER 2020-12-24 21:17 | Inpatient (IN) | payer MEDICARE ==
[~2020-12-24] VITALS: Ht 162.6 cm; Wt 78.0 kg
[~2020-12-24 21:17] MED LIST changes: -DULO60CA35 PO; -LEVE1INJ5 SUBQ; -LEVO75TA4 PO
--- OUTSIDE RECORDS SUMMARY | 2020-12-24 21:26 | CCD ---
Author Author [facility] Organization [facility] Address Unknown Phone Unavailable Care Team Providers Care Physiotherapist'S Assistant Name Role Phone Es Mei Unavailable PROBLEMS Type Condition ICD9-CM Code [id number] Code Onset Dates Condition S tatus W/U Status Risk SNOMED Code Notes Problem Neuropathy of left hand G56.92 Active confirmed 267357330 Problem Coronary artery disease invo lving [place] coronary artery of [place] heart without angina pectoris I25.10 Active confirmed 635471 9578928 Problem Moderate episode of recurrent major depressive disorder F33.1 Active confirmed 701213786 Problem Other cirrhosis of liver K74.69 Active confirmed 86195972 Problem Portal venous hypertension K76.6 Active confirmed 95673319 Problem Type 2 diabetes mellitus with hyperglycemia E11.65 Active confirmed 19657339 Problem Other chronic pain G89.29 Active confirmed 8 7499089 Problem Microcytic anemia D50.9 Active confirmed 23 2079300 Problem Fibromyalgia M79.7 Active confirmed 2874090 05 Problem 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 Active confirmed 9969980755677021 Problem Vitamin D deficiency E55.9 Active confirmed 52226976 Problem Type 2 diabetes mellitus with unspecified complications E11.8 Active confirmed 42421811 Problem Mixed hyperlipidemia E78.2 Active confirmed 300728343 Problem Pain in right knee M25.561 Active confirmed 57702610 Problem Myalgia, other site M79.18 Active confirmed 54388675 Problem Neuralgia of right lower extremity M79.2 Activ e confirmed 820102206352869 Problem Lumbosacral spondylosis with radiculopathy M47.27 Active confirmed 704420742 Problem Low back pain M54.5 Active confirmed 448166 009 Problem Acquired hypothyroidism E03.9 Active confirmed 037915500 Problem Intervertebral disc disorder with radiculopathy of lumbar region M51.16 Active confirmed 636594570071784 Problem Neuropathy of right hand G56.91 Active confirmed 468551903 Problem Peripheral artery disease I73.9 Active confirmed 554281014 Problem Essential hypertension I10 Active confirmed 55713913 Problem Chronic fatigue R53.82 Active confirmed 8422 9001 Problem 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 Active conf irmed 687179652 Problem Iron deficiency anemia, unspecified iron deficiency an emia type D50.9 Active confirmed 67243097 Problem Chronic diastolic congestive heart failure I50.32 Active confirmed 955516466 Problem Blood loss anemia D50.0 Active confirmed 41 7826458 Problem Frequent falls R29.6 Active confirmed 83752 2001 Problem Spondylosis 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 myelopathy or radiculopathy M47.816 Active confirmed 83581995 Problem Paresthesia of both hands R20.2 Active confirmed 794125067 Problem Daytime somnolence R40.0 Active confirmed 1 83494746561 Problem Lumbar radiculopathy M54.16 Active confirmed 404727375 Problem Duodenitis K29.80 Active confirmed 24416754 Problem Right leg paresthesias R20.2 Active confirmed 68105765927222556 Problem Arm paresthesia, right R20.2 Active confirmed 04442174232595878 Problem Intention tremor G25.2 Active confirmed 307 78147 ALLERGIES Allergen (clinical drug ingredient) Drug/Non Drug Allergy do cumented on EMR Reaction Allergy Type Onset Date Status gatifloxacin Gatifloxacin([facility] Code:[address]-99) Rash Drug All ergy Active Tequin Rash Non Drug Allergy Active ENCOUNTERS from 1950 to 2020-12-13 Encounter Location Date Provider Diagnosis [place] [id number] [facility] [phone] [place] [address] 18 Nov, 2020 Es [place] Acute pain of left lower ext remity M79.605 ; Lumbosacral spondylosis with radiculopathy M47.27 ; Fibromyalgia M79.7 ; Type 2 diabetes mellitus with unspecified complications E11.8 ; custodial 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 Z79.4 ; Acquired hypothyroidism E03.9 and Urinary frequency R35.0 IMMUNIZATIONS No Information SOCIAL HISTORY Tobacco Use: Social History Observation Description Date Details (start date - stop date) Former Smoker Sex Assigned At : Social History Observation Description Sex Assigned At Unknown Education: Question Answer Notes Level of Education: High School Audit Question Answer Notes Total Score: 0 Interpretation: Alcohol Education Language: Question Answer Notes Languages spoken: Syriac Protestant: Question Answer Notes Protestant 08 Quaker Sexual Hx: Question Answer Notes Had sex in the last 12 months (vaginal, oral, or anal)? No Have you ever had an STD? No Drug and Alcohol Question Answer Notes Total Score: 0 Interpretation: No problems reported Alcohol Screening: Question Answer Notes Did you have a drink containing alcohol in the past year? Ye s Points 1 Interpretation Negative How often did you have six or more drinks on one occas ion in the past year? Never (0 points) How many drinks did you have on a typica l day when you were drinking in the past year? 1 or 2 (0 points) How often did you have a drink containing alcohol in t he past year? Monthly or less (1 point) Tobacco Use: Question Answer Notes Are you a: former smoker How long has it been since you last smoked? > 10 years REASON FOR REFERRAL from 1950 to 2020-12-13 Reason Needs PT evaluation for [facility]ove rround Diagnosis 1 Lumbosacral spondylosis with radiculopathy (M47.27) Referral Organization [facility] Referring Provider First Name Es Referring Provider Last Name [facility] Referring Provider Specialty Family Medicine Referred Provider [facility],Physical Therapy ([place]) Referred Provider Specialty Physical Therapist Referral Priority Routine General Notes Nisreen Link 12/13/2020 12 :05:40 PM > referral sent Reason Low back pain with new left leg pain; previously was getting back injections at [facility]; needs re-evaluation and treatment Diagnosis 1 Acute pain of left lower ext remity (M79.605) Referral Organization [facility] Referring Provider First Name Es Referring Provider Last Name [facility] Referring Provider Specialty Family Medicine Referred Provider [facility],Orthopedics Referred Provider Specialty Orthopedic Surgery Referral Priority Routine General Notes Nisreen Link 12/13/2020 12 :05:13 PM > referral sent VITAL SIGNS Weight 166 lbs Nov, Height 63.5 in Nov, BMI 28.94 kg/m2 Nov, Heart Rate 74 /min Nov, Respiratory Rate 18 /min Nov, Temperature 96.5 degrees Fahrenheit Nov, Oximetry 100 Nov, Blood pressure systolic 150 mm Hg Nov, Blood pressure diastolic 70 mm Hg Nov, MEDICATIONS Medication SIG (Take, Route, Frequency, Duration) Notes Start Da te End Date Status metFORMIN HCl ER 500 MG TAKE TWO TABLETS BY MOUTH TWICE A DAY WITH ME ALS Active NovoLOG FlexPen 100 UNIT/ML 6 units three times a day with meals Subcutaneous TID Active Spironolactone 25 MG 1 tablet Orally bid Active Triamcinolone Acetonide 0.1 % apply thin layer to left ankle Externally Twice a day for 7 days Sep, Active Torsemide 10 MG 1 tab Orally Daily hosp d/c 06/03/20 10 mg qd Jan, Active Carafate 1 GM 1 tablet on an empty stomach Orally thre e times a day for 30 Days Active amLODIPine Besylate 2.5 MG 2 tablets Orally Once a day Sep, Active Blood Pressure Cuff - as directed automatic arm cuff; Dx I10 Mar, Active DULoxetine HCl 60 MG 1 capsule Orally Once a day for 30 day(s) Nov, Active Aspirin Low Dose 81 MG TAKE ONE TABLET BY MOUTH EVERY DAY Active Losartan Potassium 50 MG 1 and 1/2 tab to equal 75mg Orally Once a day Apr, Active Hospital bed _ as directed; electric Dx M51.16 Jul, Active Ferrous Sulfate 325 (65 Fe) MG 1 tablet Orally bid Jan, Active Levothyroxine Sodium 75 MCG 1 tablet in the morning on an empty stomach Orally Once a day for 30 day(s) Nov, Active Blood Pressure Kit - as directed dx: I10 June, Active Glucometer as directed Dx E11.65 Nov, A ctive HYDROcodone-Acetaminophen 7.5-325 MG 1 tablet as neede d Orally Daily; MDD#1, do not fill before 10/14/2020 for 30 Days Sep, Active Blood Pressure Monitor - as directed dx: HTN Jul, Active Gabapentin 100 MG 1 capsule Orally bid for 90 days Active Atorvastatin Calcium 20 MG 1 tablet Orally Once a day Active Biofreeze topically Active tiZANidine HCl 4 MG TAKE ONE TABLET BY MOUTH TWICE A DAY for 90 Active Levemir FlexTouch 100 UNIT/ML 28 units Subcutaneous BID for 90 d ays Jan, Active Jardiance 10 MG 1 tablet Orally Once a day June, Active HYDROcodone-Acetaminophen 7.5-325 MG 1 tablet as neede d Orally Daily; do not fill before 10/14 for 30 Days Nov, Act mukesh Walker - as directed 4-wheeled walker Dx M47.27 Jan, Active Pen [place] 07/10" as directed four times daily; Dx E11.8 0 Jan, Active Test Strips - as directed Dx E11.9; four times daily 2019 Active Pantoprazole Sodium 40 MG TAKE ONE TABLET BY MOUTH EVERY DAY for 90 Active Lancets - as directed four times daily; Dx E11.65 for 90 days Nov, Active PROCEDURES No Information RESULTS No Results REASON FOR VISIT F/u diabetes, thyroid MEDICAL (GENERAL) HISTORY Type Description Date Medical History T2DM NID Medical History Hyperlipidemia Medical History Vitamin B12 deficiency - recent levels h igh Medical History Vitamin D deficiency - Denies Medical History Hypothyroidism Medical History Hypertension Medical History Right humerus fx 05/2017 Medical History Tendonitis/carpal tunnel eliseo edson/neuropathy in both hands - Dr. Plummer Medical History Fibromyalgia Medical History Abdominal hernia Medical History CAD sp NSTEMI 07/08/17 with 1 ANNABEL to LAD- [facility] Medical History Echo 07/08/17 at [facility]: E F 50%, grade 2 diastolic dysfunction, mild LVH Medical History Cirrhosis/ARNOLD seen on CT and abd U/S 2017 Medical History Colonoscopy and endoscopy-07/2017 Medical History Link's cyst left leg with thigh pain Medical History CHF Medical History Chronic Pain Medical History Cirrhosis - previously saw Dr. Mustafa Surgical History tonsillectomy as a child Surgical History salivary gland pus gland removal 1952 Surgical History 1981 Surgical History gallbladder removal 1984 Surgical History hysterectomy for endometrial polyps Surgical History fistula repair in perineal area 1992 Surgical History EGD (nml), Colonoscopy (NB I H, nml) - [facility], r/p colonoscopy in 05/2012 Surgical History Drug-eluting stent to LAD at [facility] Surgical History EGD (gastric erosions, mild gastropathy) and (diverticulosis, otherwise nml) - Dr. Zambrano 07/2017 Surgical History Cataract Surgery - Both Eyes 2016 Hospitalization History surgeries as above Hospitalization History [facility] 07/07/2017 Hospitalization History GI bleed c acute blood loss anemia and ASAF I (cr to 1.5) c [place] 3.7-anne hgb 8.5 sp 2u PRBCs to 10 at dc, EGD/colon c mild gastric HTN c few flecks of heme in gastric body, sig losis, CTA AP NAD-dced on presenting regimen of asa 81 and nasreen 90 BID, added p 08/02-02/11 Hospitalization History GI bleed 09/17/17 Hospitalization History acute gastroenteritis secondary to n orovirus 02/2018 Hospitalization History GI bleed 04/23/2018 Hospitalization History fall with low blood pressure 019 Hospitalization History anemia 2 units packed cells 08/2019 Hospitalization History foot infection 11/2019 Hospitalization History hypoglycemia/cardiac 12/2019 Hospitalization History fell and hit her head 01/2020 Hospitalization History fell Hospitalization History hypertension 08/2020 Goals Section No Information Health Concerns No Information MEDICAL EQUIPMENT No Information MENTAL STATUS No Information FUNCTIONAL STATUS No Information ASSESSMENTS Encounter Date Diagnosis Assessment Notes Treatment Notes Treatm ent Clinical Notes Nov, Acute pain of left lower extremity (ICD-10 - M79 .605) She is requesting increase in hydrodocone. However, etiology of pain is unclear. History of new left-sided back pain with radiculopathy is consistent with a new spine problem; may need MRI or just needs to restart injections, so will refer back to [facility] for this. However, exam is more consistent with fibromyalgia. I counseled her that opioids are not used to treat fibromyalgia and recommended increase in duloxetine for possible fibromyalgia pain. Nov, Lumbosacral spondylosis with radiculopathy (ICD- 10 - M47.27) Nov, Fibromyalgia (ICD-10 - M79.7) See plan above. Nov, Type 2 diabetes mellitus wit h unspecified complications (ICD-10 - E11.8) She does not check glucose, so I cannot make changes to her levemir. She denies any hypoglycemic symptoms. 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 Nov, Urinary frequency (ICD-10 - R35.0) Assess urine for possible UTI. PLAN OF TREATMENT Medication Medication Name Sig Start Date Stop Date Levothyroxine Sodium 75 MCG 1 tablet in the morning on an empty stomach Orally Once a day for 30 day(s) Nov, Levemir FlexTouch 100 UNIT/ML 28 units Subcutaneous BID for 90 days Jan, metFORMIN HCl ER 500 MG TAKE TWO TABLETS BY MOUTH TWICE A DAY WI TH MEALS Jardiance 10 MG 1 tablet Orally Once a day June, DULoxetine HCl 60 MG 1 capsule Orally Once a day for 30 day(s) 1 8 Nov, 2020 NovoLOG FlexPen 100 UNIT/ML 6 units three times a day with meals Subcutaneous TID Treatment Notes Assessment Notes Clinical Notes Acute pain of left lower extremity She i s requesting increase in hydrodocone. However, etiology of pain is unclear. History of new left-sided back pain with radiculopathy is consistent with a new spine problem; may need MRI or just needs to restart injections, so will refer back to [facility] for this. However, exam is more consistent with fibromyalgia. I counseled her that opioids are not used to treat fibromyalgia and recommended increase in duloxetine for possible fibromyalgia pain. Fibromyalgia See plan above. Type 2 diabetes mellitus with unspecified complications She does not check glucose, so I cannot make changes to her levemir. She denies any hypoglycemic symptoms. Acquired hypothyroidism Due for TSH. Urinary frequency Assess urine for pos sible UTI. Treatment Notes Test Name Order Date UA URINALYSIS 2020-12-12 TSH 2020-12-12 URINE CULTURE 2020-12-12 Referrals Referral Date Details Needs PT evaluation for Hove rrmichele, Physical Therapy ([place]) [facility] Low back pain with new left leg pain; previously was getting back injections at [facility]; needs re-evaluation and treatment, Orthopedics [facility] Next Appt Details Mar or April 2021 Reason: Provider Name:Es Mei, 2021-04-25 10:00:00 AM, [address] [facility], , [place], [address], Insurance Providers Payer Name Payer Address Payer Phone Insured Name Patient Relati onship to Insured Coverage Start Date Coverage End Date AETNA MEDICARE [employer] INSURANCE [place] [address] [facility] [id number] MARIANA SMITH self
--- OUTSIDE RECORDS SUMMARY | 2020-12-24 21:26 | CCD ---
Author Author [facility] Organization 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 Active confirmed 231329086 Problem Coronary artery disease invo lving [place] coronary artery of [place] heart without angina pectoris I25.10 Active confirmed 167422 3722345 Problem Moderate episode of recurrent major depressive disorder F33.1 Active confirmed 824279505 Problem Other cirrhosis of liver K74.69 Active confirmed 46740975 Problem Portal venous hypertension K76.6 Active confirmed 07751752 Problem Type 2 diabetes mellitus with hyperglycemia E11.65 Active confirmed 62603551 Problem Other chronic pain G89.29 Active confirmed 8 4504726 Problem Microcytic anemia D50.9 Active confirmed 23 5612878 Problem Fibromyalgia M79.7 Active confirmed 9849804 05 Problem 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 Active confirmed 2602933570445218 Problem Vitamin D deficiency E55.9 Active confirmed 73718502 Problem Type 2 diabetes mellitus with unspecified complications E11.8 Active confirmed 09950219 Problem Mixed hyperlipidemia E78.2 Active confirmed 933873831 Problem Pain in right knee M25.561 Active confirmed 14835769 Problem Myalgia, other site M79.18 Active confirmed 48187712 Problem Neuralgia of right lower extremity M79.2 Activ e confirmed 745268855239679 Problem Lumbosacral spondylosis with radiculopathy M47.27 Active confirmed 787334186 Problem Low back pain M54.5 Active confirmed 138448 009 Problem Acquired hypothyroidism E03.9 Active confirmed 072469258 Problem Intervertebral disc disorder with radiculopathy of lumbar region M51.16 Active confirmed 586412364263511 Problem Neuropathy of right hand G56.91 Active confirmed 807983129 Problem Peripheral artery disease I73.9 Active confirmed 423659878 Problem Essential hypertension I10 Active confirmed 63037166 Problem Chronic fatigue R53.82 Active confirmed 8422 9001 Problem 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 Active conf irmed 454902497 Problem Iron deficiency anemia, unspecified iron deficiency an emia type D50.9 Active confirmed 73811877 Problem Chronic diastolic congestive heart failure I50.32 Active confirmed 194170526 Problem Blood loss anemia D50.0 Active confirmed 41 0289069 Problem Frequent falls R29.6 Active confirmed 57234 2001 Problem Spondylosis 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 myelopathy or radiculopathy M47.816 Active confirmed 81310463 Problem Paresthesia of both hands R20.2 Active confirmed 607466995 Problem Daytime somnolence R40.0 Active confirmed 1 55110228354 Problem Lumbar radiculopathy M54.16 Active confirmed 348771891 Problem Duodenitis K29.80 Active confirmed 42235373 Problem Right leg paresthesias R20.2 Active confirmed 80106721425174554 Problem Arm paresthesia, right R20.2 Active confirmed 08949098311710892 Problem Intention tremor G25.2 Active confirmed 307 14325 ALLERGIES Allergen (clinical drug ingredient) Drug/Non Drug Allergy do cumented on EMR Reaction Allergy Type Onset Date Status gatifloxacin Gatifloxacin([facility] Code:[address]-87) Rash Drug All ergy Active Tequin Rash Non Drug Allergy Active ENCOUNTERS from 1950 to 2020-12-12 Encounter Location Date Provider Diagnosis [place] [id number] [facility] [phone] [place] [address] Nov, Es Mei Type 2 diabetes mellitus wit h unspecified complications E11.8 IMMUNIZATIONS No Information SOCIAL HISTORY Tobacco Use: Social History Observation Description Date Details (start date - stop date) Former Smoker Sex Assigned At : Social History Observation Description Sex Assigned At Unknown Education: Question Answer Notes Level of Education: High School Audit Question Answer Notes Total Score: 0 Interpretation: Alcohol Education Language: Question Answer Notes Languages spoken: Guinean Caodaism: Question Answer Notes Caodaism 08 Lutheran Sexual Hx: Question Answer Notes Had sex [...] smoked? > 10 years REASON FOR REFERRAL No Information VITAL SIGNS No information MEDICATIONS Medication SIG (Take, Route, Frequency, Duration) [...] MG 1 tablet Orally bid Jan, Active HYDROcodone-Acetaminophen 7.5-325 MG 1 tablet as neede d Orally Daily; do not fill before 10/14 for 30 Days Nov, Act mukesh Walker - as directed 4-wheeled walker Dx M47.27 Jan, Active Glucometer as directed Dx E11.65 Nov, A ctive HYDROcodone-Acetaminophen 7.5-325 MG 1 tablet as neede d Orally Daily; MDD#1, do not fill before 10/14/2020 for 30 Days Sep, Active Levemir FlexTouch 100 UNIT/ML 28 units Subcutaneous BID for 90 d ays Jan, Active Gabapentin 100 MG 1 capsule Orally bid for 90 days Active Atorvastatin Calcium 20 MG 1 tablet Orally Once a day Active Biofreeze topically Active tiZANidine HCl 4 MG TAKE ONE TABLET BY MOUTH TWICE A DAY for 90 Active Blood Pressure Kit - as directed dx: I10 June, Active Jardiance 10 MG 1 tablet Orally Once a day June, Active Blood Pressure Monitor - as directed dx: HTN Jul, Active Test Strips - as directed Dx E11.9; four times daily 2019 Active Pen [place] 07/10" as directed four times daily; Dx E11.8 0 Jan, Active Levothyroxine Sodium 50 MCG TAKE ONE TABLET BY MOUTH E VERY MORNING ON AN EMPTY STOMACH Orally Once a day Active Pantoprazole Sodium 40 MG TAKE ONE TABLET BY MOUTH EVERY DAY for 90 Active Lancets - as directed four times daily; Dx E11.65 for 90 days Nov, Active PROCEDURES No Information RESULTS No Results REASON FOR VISIT levemir MEDICAL (GENERAL) HISTORY Type Description Date Medical [...] NSTEMI 07/08/17 with 1 ANNABEL to LAD- [facility] Medical History Echo 07/08/17 at [facility]: E F 50%, grade 2 diastolic dysfunction, [...] (nml), Colonoscopy (NB I H, nml) - [facility] r/p colonoscopy in 05/2012 Surgical History Drug-eluting stent to LAD at [facility] Surgical History EGD (gastric erosions, mild gastropathy) and (diverticulosis, otherwise nml) - Dr. Zambrano 07/2017 Surgical History Cataract Surgery - Both Eyes 2016 Hospitalization History surgeries as above Hospitalization History [facility] 07/07/2017 Hospitalization History GI bleed c acute blood loss anemia and ASAF I (cr to 1.5) c [place] 3.7-anne hgb 8.5 sp 2u PRBCs to 10 at tx, EGD/colon c mild gastric HTN c few [...] Treatment Notes Treatm ent Clinical Notes Nov, Type 2 diabetes mellitus wit h unspecified complications (ICD-10 - E11.8) PLAN OF TREATMENT Medication Medication Name Sig Start Date Stop Date Jardiance 10 MG 1 tablet Orally Once a day June, Levemir FlexTouch 100 UNIT/ML 28 units Subcutaneous BID for 90 days Jan, NovoLOG FlexPen 100 UNIT/ML 6 units three times a day with meals Subcutaneous TID metFORMIN HCl ER 500 MG TAKE TWO TABLETS BY MOUTH TWICE A DAY WI TH MEALS DULoxetine HCl 60 MG 1 capsule Orally Once a day for 30 day(s) 1 8 Nov, 2020 Next Appt Details Provider Name:Es Mei, 2021-04-25 10:00:00 AM, [address] [facility], , [place], [address], Insurance Providers Payer Name Payer Address Payer Phone Insured Name Patient Relati onship to Insured Coverage Start Date Coverage End Date AETNA MEDICARE A[employer] INSURANCE [employer] [address] [facility] [id number] MARIANA SMITH self
--- OUTSIDE RECORDS SUMMARY | 2020-12-24 21:26 | CCD ---
Author Author Cas Weaver MD [facility] Organization Cas Weaver MD [facility] Address [phone] [id number] Phone Care Team Providers Care Hemmer Automatic Name Role Phone Meg WELLS, FACS, Cas [place] Unavailable [phone] Skyla Epps PP [phone] Reason for Referral No Reason for Referral Recorded Problems Includes: Active, inactive, and resolved Problems All Visits Onset Date - Time Resolved Date - Time Provider Co ndition Status History of Nicotine Dependence 04/03/2018 - 12:00AM Vincenzo ttel Mustafa DO Active Retinopathy Hypertensive 04/03/2018 - 12:00AM 10/05/2020 - 11:07 AM Lazaro Mustafa DO Resolved Age-related nuclear cataract, bilateral 05/13/2017 - 12:00AM 10/05/2020 - 11:07AM Lazaro Mustafa DO Resolved Pseudophakia 01/29/2017 - 12:00AM Lazaro Ramsey DO Inactive Cataract Senile Cortical Bilateral 09/14/2015 - 12:00AM Lazaro Mustafa DO Inactive Essential Hypertension 09/14/2015 - 12:00AM Cas Reynaga MD, FACS Active Cataract Senile Posterior Subcapsular Polar 09/14/2015 - 12:00AM Lazaro Mustafa DO Inactive Cataract Senile Nuclear 09/14/2015 - 12:00AM Unknown - Unknown M attheclarisa Ramsey DO Resolved Pinguecula, bilateral 03/15/2015 - 12:00AM Cas Durand MD, FACS Active Vitreous Disorders Degeneration 03/09/2015 - 12:00AM Cas Weaver MD, FACS Active Note: Unchanged 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 01/05/2015 - 12:00AM Cas Weaver MD, FACS Active Note: both eyes Taking Medication For Diabetes Long-term Use of Insulin 01/06/20 15 - 12:00AM Cas Weaver MD, FACS Active Retinopathy Hypertensive Both Eyes 10/16/2013 - 12:00AM Cas Weaver MD, FACS Active Note: Unchanged Pinguecula 10/16/2013 - 12:00AM Cas Weaver MD, FACS Inactive Note: Unchanged Cataract Presenile Posterior Subcapsular Polar 10/16/2013 - 12:0 0AM Cas Weaver MD, FACS Inactive Note: Unchanged - of both ey es Cataract Presenile Cortical 04/14/2013 - 12:00AM Cas Weaver MD, FACS Inactive Note: Worsening - of both ey es Diabetes Mellitus Secondary with Ophthalmic Manifestations 0 04/14/2013 - 12:00AM Cas Weaver MD, FACS Inactive Note: Unchanged Diabetes with Diabetic Retinopathy Nonproliferative Mi ld Both Eyes 09/25/2012 - 12:00AM Cas Weaver MD, FACS Inactive Note: Unchanged Borderline Glaucoma Ocular Hypertension Both Eyes 09/25/2012 - 2:00AM Cas Weaver MD, FACS Active Note: Unchanged Dry Eye Syndrome Both Eyes 09/25/2012 - 12:00AM Cas Weaver MD, FACS Active Note: Unchanged Plan of Treatment Pending Tests Order Diagnosis Results Due Ordering Provi becky Testing Ordered - OCT OCT RETINA Type 2 diab with m od nonp rtnop without macular edema, bi 08/26/20 Lazaro Mustafa DO Referrals To Diagnosis Referral to Dr. Ramsey Weaver MD, FACS Poste rior subcapsular polar age-related cataract, bilateral Future Appointments Date Time Location Provider 6 Month Follow-Up with OCT Retina 04/07/2021 10:00AM Cas Reynaga MD [facility] Lazaro Mustafa DO Findings Encounter Date Ordered Transition in care, clinical summary provided to Dr. Mustafa TRIAGE NON URGENT LEVEL 1 with Cas Weaver MD, FACS 09/26/2016 Requested Referred to: Dr. Mustafa TRIAGE NON URGEN T LEVEL 1 with Cas Weaver MD, FACS 09/26/2016 Assessments Includes: Assessments for all patient encounters Findings Encounter Date Borderline glaucoma ocular hypertension in both eyes 1 Year Follow-Up with Lazaro Mustafa 10/05/2020 Dry eye syndrome of both eyes 1 Year Follow-Up with Lazaro Mustafa 10/05/2020 Essential hypertension 1 Year Follow-Up with Lazaro Lundy in 10/05/2020 History of nicotine dependence 1 Year Follow-Up with Lazarorobert Mustafa 10/05/2020 Hypertensive retinopathy 1 Year Follow-Up with Lazaro alexander 10/05/2020 Long-term use of insulin 1 Year Follow-Up with Lazaro alexander 10/05/2020 Posterior capsule opacification of eccentric capsule i n both eyes 1 Year Follow- Up with Lazaro Ramsey DO 10/05/2020 Pseudophakia 1 Year Follow-Up with Lazaro Ramsey DO 10/05/2020 Type 2 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 without macular edema 1 Year Follow-Up with Lazaro Ramsey DO 10/05/2020 Borderline glaucoma ocular hypertension in both eyes 1 Year Follow-Up with Lazaro Ramsey DO 04/07/2019 Dry eye syndrome of both eyes 1 Year Follow-Up with Lazaro Ramsey DO 04/07/2019 Essential hypertension 1 Year Follow-Up with Lazaro Quispesamira in 04/07/2019 History of nicotine dependence 1 Year Follow-Up with Lazaro Ramsey DO 04/07/2019 Hypertensive retinopathy 1 Year Follow-Up with Lazaro alexander 04/07/2019 Long-term use of insulin 1 Year Follow-Up with Lazaro alexander 04/07/2019 Type 2 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 without macular edema 1 Year Follow-Up with Lazaro Ramsey DO 04/07/2019 Borderline glaucoma ocular hypertension in both eyes 1 Year Follow-Up with Lazaro Ramsey DO 04/03/2018 Dry eye syndrome of both eyes 1 Year Follow-Up with Lazaro Ramsey DO 04/03/2018 Essential hypertension 1 Year Follow-Up with Lazaro Quispesamira in 04/03/2018 History of nicotine dependence 1 Year Follow-Up with Lazaro Ramsey DO 04/03/2018 Hypertensive retinopathy 1 Year Follow-Up with Lazaro alexander 04/03/2018 Long-term use of insulin 1 Year Follow-Up with Lazaro Quispethiago catherine DO 04/03/2018 Type 2 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 without macular edema 1 Year Follow-Up with Lazaro Mustafa DO 04/03/2018 Pseudophakia POST OP with Lazaro Mustafa DO 2016 Pseudophakia 1 Week Post OP with Lazaro Mustafa DO 01/11/2017 Pseudophakia 1 Day Post OP with Lazaro Mustafa DO 01/04/2017 Nuclear senile cataract POST OP VISIT WITH PRE-OP with Julián Mustafa DO 12/28/2016 Pseudophakia POST OP VISIT WITH PRE-OP with Lazaro Clarisa heydi DO 12/28/2016 Pseudophakia 1 Day Post OP with Lazaro Mustafa DO 12/21/2016 Nuclear senile cataract PRE OP WITH TESTING with Lazaro braden DO 12/11/2016 Nuclear senile cataract CATARACT EVAL - REFERRAL FR DR. JUARES with Lazaro Mustafa DO 10/17/2016 Bilateral cortical senile cataract TRIAGE NON URGENT L EVEL 1 with Cas Weaver MD, FACS 09/26/2016 Nuclear senile cataract TRIAGE NON URGENT LEVEL 1 wi Cas Weaver MD, FACS 09/26/2016 Posterior subcapsular polar senile cataract TRIAGE NON URGENT LEVEL 1 with Cas Weaver MD, FACS 09/26/2016 Bilateral cortical senile cataract 8 Month Follow-Up w ith Cas Weaver MD, FACS 04/26/2016 Borderline glaucoma ocular hypertension in both eyes 8 Month Follow-Up with Cas Weaver MD, FACS 04/26/2016 Long-term use of insulin 8 Month Follow-Up with Cas Raymundo MD, FACS 04/26/2016 Nuclear senile cataract 8 Month Follow-Up with Cas Cobos MD, FACS 04/26/2016 Posterior subcapsular polar senile cataract 8 Month Fo llow-Up with Cas Weaver MD, FACS 04/26/2016 Type 2 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 without macular edema 8 Month Follow-Up with Cas Weaver MD, FACS Bilateral cortical senile cataract 8 Month Follow-Up w ith Cas Weaver MD, FACS 09/14/2015 Borderline glaucoma ocular hypertension in both eyes 8 Month Follow-Up with Cas Weaver MD, FACS 09/14/2015 Essential hypertension 8 Month Follow-Up with Cas Matson MD, FACS 09/14/2015 History of nicotine dependence 8 Month Follow-Up with Cas Weaver MD, FACS 09/14/2015 Hypertensive retinopathy of both eyes 8 Month Follow-U p with Cas Weaver MD, FACS 09/14/2015 Nuclear senile cataract 8 Month Follow-Up with Cas Cobos MD, FACS 09/14/2015 Posterior subcapsular polar senile cataract 8 Month Fo llow-Up with Cas Weaver MD, FACS 09/14/2015 Type 2 diabetes mellitus with moderate n onproliferative diabetic retinopathy without macular edema of both eyes 8 Month Follow-Up with Cas marino MD, FACS 09/14/2015 Borderline glaucoma ocular hypertension in both eyes 7 Month Follow-Up with Cas Weaver MD, FACS 01/05/2015 Cortical presenile cataract 7 Month Follow-Up with Cas Weaver MD, FACS 01/05/2015 Long-term use of insulin 7 Month Follow-Up with Cas Raymundo MD, FACS 01/05/2015 Posterior subcapsular polar presenile cataract 7 Month Follow-Up with Cas Weaver MD, FACS 01/05/2015 Type 2 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 without macular edema both eyes 7 Month Follow-Up with Cas Weaver MD, FACS 01/05/2015 Bilateral pinguecula 6 Month Follow-Up with Cas sanchez MD, FACS 06/22/2014 Borderline glaucoma ocular hypertension in both eyes 6 Month Follow-Up with Cas Weaver MD, FACS 06/22/2014 Cortical presenile cataract both eyes 6 Month Follow- Up with Cas Toribio MD, FACS 06/22/2014 Dry eye syndrome of both eyes 6 Month Follow-Up with Renetta Weaver MD, FACS 06/22/2014 Hypertensive retinopathy of both eyes 6 Month Follow-U p with Cas Weaver MD, FACS 06/22/2014 No rubeosis iridis of both eyes 6 Month Follow-Up with Cas Weaver MD, FACS 06/22/2014 Posterior subcapsular polar presenile cataract both e yes 6 Month Follow-Up with Cas Weaver MD, FACS 06/22/2014 Secondary diabetes mellitus with ophthalmic manifestat ions 6 Month Follow-Up with Cas Weaver MD, FACS 06/22/2014 Type 2 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 without macular edema both eyes 6 Month Follow-Up with Cas Weaver MD, FACS 06/22/2014 Vitreous floaters in both eyes 6 Month Follow-Up with Cas Weaver MD, FACS 06/22/2014 Borderline glaucoma ocular hypertension in both eyes 6 Month Follow-Up with Visual Field with Cas Weaver MD, [facility] 10/16/2013 Cortical presenile cataract both eyes 6 Month Follow- Up with Visual Field with Cas Weaver MD, FACS 10/16/2013 Dry eye syndrome of both eyes 6 Month Follow-Up with V isual Field with Cas Weaver MD, [facility] 10/16/2013 Hypertensive retinopathy of both eyes 6 Month Follow-U p with Visual Field with Cas Weaver MD, [facility] 10/16/2013 Mild nonproliferative diabetic retinopathy of both eye s 6 Month Follow-Up with Visual Field with Cas Weaver MD, [facility] 10/16/2013 No diabetic macular edema 6 Month Follow-Up with Visua l Field with Cas Weaver MD, [facility] 10/16/2013 No rubeosis iridis 6 Month Follow-Up with Visua l Field with Cas Weaver MD, [facility] 10/16/2013 Pinguecula both eyes 6 Month Follow-Up with Visua l Field with Cas Toribio MD, [facility] 10/16/2013 Posterior subcapsular polar presenile cataract both e yes 6 Month Follow-Up with Visual Field with Cas Weaver MD, [facility] 10/16/2013 Secondary diabetes mellitus with ophthalmic manifestat ions 6 Month Follow-Up with Visual Field with Cas Weaver MD, [facility] 10/16/2013 Vitreous floaters in both eyes 6 Month Follow-Up with Visual Field with Cas Weaver MD, [facility] 10/16/2013 Borderline glaucoma ocular hypertension in both eyes 6 Month Follow-Up with Cas Weaver MD, FACS 04/14/2013 Cortical presenile cataract of both eyes 6 Month Foll ow-Up with Cas Toribio MD, [facility] 04/14/2013 Dry eye syndrome of both eyes 6 Month Follow-Up with Renetta Weaver MD, FACS 04/14/2013 Mild nonproliferative diabetic retinopathy of both eye s 6 Month Follow-Up with Cas Weaver MD, FACS 04/14/2013 No diabetic macular edema 6 Month Follow-Up with Cas Durand MD, FACS 04/14/2013 No rubeosis iridis of both eyes 6 Month Follow-Up with Cas Weaver MD, FACS 04/14/2013 Secondary diabetes mellitus with ophthalmic manifestat ions 6 Month Follow-Up with Cas Weaver MD, FACS 04/14/2013 Vitreous floaters in both eyes 6 Month Follow-Up with Cas Weaver MD, FACS 04/14/2013 Anterior cortical senile cataract of both eyes IOP [facility] TRAVIS with Cas Toribio MD, FACS 10/09/2012 Borderline glaucoma ocular hypertension in both eyes I OP CHECK with Cas Weaver MD, FACS 10/09/2012 Dry eye syndrome of both eyes IOP CHECK with Cas Toribio MD, FACS 10/09/2012 No rubeosis iridis of both eyes IOP CHECK with Cas Cobos MD, FACS 10/09/2012 Vitreous floaters in both eyes IOP CHECK with Cas Matson MD, FACS 10/09/2012 Anterior cortical senile cataract of both eyes NEW PA TIENT with Cas Toribio MD, FACS 09/25/2012 Borderline glaucoma ocular hypertension in both eyes N EW PATIENT with Cas Weaver MD, FACS 09/25/2012 Dry eye syndrome of both eyes NEW PATIENT with Cas Cobos MD, FACS 09/25/2012 Mild nonproliferative diabetic retinopathy of both eye s NEW PATIENT with Cas Weaver MD, FACS 09/25/2012 No diabetic macular edema NEW PATIENT with Cas marino MD, FACS 09/25/2012 No rubeosis iridis of both eyes NEW PATIENT with Cas Durand MD, FACS 09/25/2012 Vitreous floaters in both eyes NEW PATIENT with Cas Raymundo MD, FACS 09/25/2012 Instructions Instructions not supported for this document typeNo Instructions Recorded Medical Equipment - Implanted Devices Includes: Current and historical DevicesNo Medical Equipment Recorded Medications Includes: Current and historical Medications Current Medications (continue as prescribed) Vicodin 5-325 mg Oral Tablet 04/07/2019 Provider: Diagnosis: NovoLOG FlexPen 100 UNIT/ML Subcutaneous Solution Pen-inject or 04/07/2019 Provider: Diagnosis: at meals Levemir 40 UNITS/ML Subcutaneous Solution 04/07/2019 Provider: Diagnosis: Adult Aspirin Regimen 81 MG Oral Tablet Delayed Release 03/28 Provider: Diagnosis: Atorvastatin 20 MG Oral Tablet 04/07/2019 Provider: Diagnosis: Carvedilol 6.25 MG Oral Tablet 04/07/2019 Provider: Diagnosis: DULoxetine HCl 30 MG Oral Capsule Delayed Release Sprinkle 0 04/07/2019 Provider: Diagnosis: Farxiga 5 MG Oral Tablet 04/07/2019 Provider: Diagnosis: Levothyroxine 25 MCG Oral Tablet 04/07/2019 Provide r: Diagnosis: Losartan Besylate 100 mg Oral Tablet 04/07/2019 Pro vider: Diagnosis: metFORMIN HCl 500 MG Oral Tablet 04/07/2019 Provide r: Diagnosis: Pantoprazole 40 MG Oral Tablet 04/07/2019 Provider: Diagnosis: Pregabalin 50 MG Oral Capsule 04/07/2019 Provider: Diagnosis: tiZANidine HCl 4 MG Oral Capsule 04/07/2019 Provide r: Diagnosis: Past Medications on file Brilinta 90MG Oral Tablet 04/03/2018 - 04/07/2019 Provider: Diagnosis: Levemir 40 UNITS/ML Subcutaneous Solution 04/03/2018 - 04/07 Provider: Diagnosis: Novolog 6UNITS Injection Solution 04/03/2018 - 04/07/2019 Pr ovider: Diagnosis: sliding scale TiZANidine HCl 4MG Oral Capsule 04/03/2018 - 04/07/2019 Prov ider: Diagnosis: Carafate 1GM Oral Tablet 04/03/2018 - 04/07/2019 Provider: Diagnosis: Losartan Potassium 10MG Oral Tablet 04/03/2018 - 04/07/2019 Provider: Diagnosis: Pantoprazole 40 MG Oral Tablet 04/03/2018 - 04/07/2019 Provi becky: Diagnosis: levothyroxine 25 Oral Tablet 04/03/2018 - 04/07/2019 Provide r: Diagnosis: Isosorbide Dinitrate 30MG Oral Tablet 04/03/2018 - 0 Provider: Diagnosis: Farxiga 10MG Oral Tablet 04/03/2018 - 04/07/2019 Provider: Diagnosis: Carvedilol 12.5MG Oral Tablet 04/03/2018 - 04/07/2019 Provid er: Diagnosis: Atorvastatin 20 mg Oral Tablet 04/03/2018 - 04/07/2019 Provi becky: Diagnosis: AmLODIPine Besylate 5MG Oral Tablet 04/03/2018 - 04/07/2019 Provider: Diagnosis: Pred Forte 1% Ophthalmic Suspension 12/11/2016 - 02/09/2017 Provider: Lazaro Mustafa DO Diagnosis: Age-related nuclear cataract, right eye day of surgery remove patch start one drop four times a day in the right eye BromSite 0.075% Ophthalmic Solution 12/11/2016 - 02/09/2017 Provider: Lazaro Mustafa DO Diagnosis: Age-related nuclear cataract, right eye three days prior to surgery start one drop two times a day i n the right eye Besivance 0.6% Ophthalmic Suspension 12/11/2016 - 02/09/2017 Provider: Lazaro Mustafa DO Diagnosis: Age-related nuclear cataract, right eye three days prior to surgery start one drop three times a day in the right eye Valsartan 160MG Oral Tablet 10/17/2016 - 04/03/2018 Provider : Diagnosis: Vicodin 5-300MG Oral Tablet 04/26/2016 - 04/03/2018 Provider : Diagnosis: HumaLOG 100UNIT/ML Subcutaneous Solution 04/26/2016 - 2018 Provider: Diagnosis: sliding scale Toujeo SoloStar 300 UNIT/ML Solution Pen-injector 09/14/2015 - 04/03/2018 Provider: Diagnosis: 145 units BusPIRone HCl 7.5 MG Tablet 09/14/2015 - 04/26/2016 Provider : Diagnosis: Vitamin D2 1.25 MG Tablet 06/22/2014 - 10/17/2016 Provider: Diagnosis: once a week Gabapentin 100 MG OR CAPS 10/16/2013 - 10/17/2016 Provider: Diagnosis: Levemir FlexPen 100 UNIT/ML SC SOLN 09/25/2012 - 09/14/2015 Provider: Diagnosis: 110 units in the [id number] units in the evening HumaLOG 100 UNIT/ML SC SOLN 09/25/2012 - 09/14/2015 Provider : Diagnosis: 100 units daily Naproxen 500 MG OR TABS 09/25/2012 - 06/22/2014 Provider: Diagnosis: metFORMIN HCl 1000 MG TABS 09/25/2012 - 04/07/2019 Provider: Diagnosis: Lyrica 100 MG OR CAPS 09/25/2012 - 10/16/2013 Provider: Diagnosis: Lisinopril-hydroCHLOROthiazide 20-12.5 MG TABS 09/25/2012 - 04/26/2016 Provider: Diagnosis: Levothyroxine Sodium 88 MCG OR TABS 09/25/2012 - 10/17/2016 Provider: Diagnosis: Hydrocodone-Acetaminophen 7.5-500 MG OR TABS 09/25/2012 - Provider: Diagnosis: Furosemide 20 MG OR TABS 09/25/2012 - 04/26/2016 Provider: Diagnosis: 1/2 tab in the morning Citalopram Hydrobromide 40 MG OR TABS 09/25/2012 - Provider: Diagnosis: Atenolol 25 MG OR TABS 09/25/2012 - 04/26/2016 Provider: Diagnosis: Aspirin 81 MG OR TABS 09/25/2012 - 04/03/2018 Provider: Diagnosis: Omeprazole 20 MG OR CPDR 09/25/2012 - 04/26/2016 Provider: Diagnosis: tiZANidine HCl 2 MG OR TABS 09/25/2012 - 04/03/2018 Provider : Diagnosis: Pravastatin Sodium 20 MG OR TABS 09/25/2012 - 04/26/2016 Pro vider: Diagnosis: Medications Administered Includes: Administered Medications in patient's chartNo Administered Medications Recorded Vital Signs Includes: Vital Signs from 10/06/2019 through 10/05/2020No Vital Signs Recorded For Specified Dates Results Includes: Results from 10/06/2019 through 10/05/2020No Results Recorded For Specified Dates History of Present Illness History of Present Illness not supported for this document typeNo History of Present Illness Recorded Social History Description Last Updated Previous smoking history 10/05/2020 Tobacco non-user 10/05/2020 No consumption of alcohol 10/05/2020 No tobacco use 10/05/2020 Not using drugs 10/05/2020 Smoking status : Former smoker 10/05/2020 Procedures and Surgical History Surgical History Last Updated History of extracapsular cataract extrac tion PCIOL OD by Dr. Mustafa 12/20/16 ~PCIOL OS by Dr. Mustafa 01/03/17 10/05/2020 Surgical / procedural history : Cholecys tectomy, Hysterectomy 1989, Right Salivary Gland removed, Fistula removed, 1981, Gallbladder 1983 10/05/2020 Medical History Includes: Medical History in patient's chart Description Last Updated History of the retina was abnormal 04/07/2019 Reported medical history : GERD, Neuropa thy both Legs, Carpal Tunnel, Depression, Fibromyalgia, Anemic, Open Head wound 08/202010/05/2020 Recent change in medical history 10/05/2020 History of type 2 diabetes mellitus Dx: 1990 Type: 2 A1C: FBS: does not check daily 10/05/2020 History of fundoscopic exam through dilated pupils was performed 09/14/2015 05/13/2017 History of essential hypertension 01/05/2015 Currently wearing eyeglasses - wears si ngle vision lenses for driving only, wears +2.00 over the counter reading glasses 09/25/2012 History of arthritis 09/25/2012 History of hyperlipidemia 09/25/2012 History of hypertension 09/25/2012 History of hypothyroidism 09/25/2012 Family History Includes: Family History in patient's chart Description Last Updated Fraternal history of diabetes mellitus 10/05/2020 Fraternal history of multiple sclerosis 10/05/2020 Maternal history of diabetes mellitus 10/05/2020 Maternal history of glaucoma 10/05/2020 Maternal history of heart disease 10/05/2020 Maternal history of thyroid disorder 10/05/2020 Fraternal history of arthritis 01/05/2015 Maternal history of blindness 01/05/2015 Maternal history of cataract 01/05/2015 Maternal history of macular degeneration 01/05/2015 Paternal history of heart disease 01/05/2015 Paternal history of hypertension 01/05/2015 Maternal history of arthritis 06/22/2014 Review of Systems Review of Systems not supported for this document typeNo Review of Systems Recorded Mental Status Mental Status not supported for this document type Description Oriented to time, place, and person Functional Status Functional Status not supported for this document typeNo Functional Status Recorded Physical Exam Physical Exam not supported for this document typeNo Physical Exam Recorded Immunizations Includes: Immunizations in patient's chartNo Immunizations Recorded Allergies Includes: Active, inactive, and resolved Allergies Substance Type Reaction Onset Date - Time Resolved Date - Ti me Status Zymaxid Allergy 09/25/2012 - 12:00AM Acti ve Encounters Includes: Encounters from 10/06/2019 through 10/05/2020 Encounter Provider Location Date Check-In Time Check-Out Time D iagnosis 1 Year Follow-Up Lazaro Booker MD [facility] 09/2504/07/2019 11:50AM 11:08AM History of Nicotine Dependen ce, Essential Hypertension, Retinopathy Hypertensive, Taking Medication For Diabetes Long-term Use of Insulin, Dry Eye Syndrome Both Eyes, Borderline Glaucoma Ocular Hyper tension Both Eyes, 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, Pseudophakia, Posterior Capsule Opacification Eccentric Capsule Both Eyes Insurance Includes: Active Insurance Policies Plan Name Member ID Group # Subscriber Relationship Effective Da luis manuel 1 - Medicare Part B [facility] [id number] Juju Daneille Self 2 - [employer] Choice [id number] Juju Danielle Self 3 - Medicaid Of [place] - [employer] [id number] Juju Danielle Self 4 - [employer] MEDICARE ADVANTAGE [id number] Juju wilson Self Advance Directives Includes: Current Advance DirectivesNo Advance Directives Recorded Health Concerns Includes: Active Health ConcernsNo Active Health Concerns Recorded Goals Includes: Active GoalsNo Active Goals Recorded Interventions Includes: Interventions for active GoalsNo Interventions Recorded Evaluations & Outcomes Includes: Evaluations & Outcomes for active GoalsNo Outcomes Recorded
--- OUTSIDE RECORDS SUMMARY | 2020-12-24 21:26 | CCD ---
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 Active confirmed 033867838 Problem Coronary artery disease invo lving [place] coronary artery of [place] heart without angina pectoris I25.10 Active confirmed 731958 7641504 Problem Moderate episode of recurrent major depressive disorder F33.1 Active confirmed 397257138 Problem Other cirrhosis of liver K74.69 Active confirmed 24077085 Problem Portal venous hypertension K76.6 Active confirmed 30547159 Problem Type 2 diabetes mellitus with hyperglycemia E11.65 Active confirmed 95932004 Problem Other chronic pain G89.29 Active confirmed 8 8604579 Problem Microcytic anemia D50.9 Active confirmed 23 7893178 Problem Fibromyalgia M79.7 Active confirmed 3543652 05 Problem 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 Active confirmed 1906159106431823 Problem Vitamin D deficiency E55.9 Active confirmed 23514830 Problem Type 2 diabetes mellitus with unspecified complications E11.8 Active confirmed 10832732 Problem Mixed hyperlipidemia E78.2 Active confirmed 536897223 Problem Pain in right knee M25.561 Active confirmed 03665913 Problem Myalgia, other site M79.18 Active confirmed 02008287 Problem Neuralgia of right lower extremity M79.2 Activ e confirmed 762399490615027 Problem Lumbosacral spondylosis with radiculopathy M47.27 Active confirmed 165462207 Problem Low back pain M54.5 Active confirmed 493215 009 Problem Acquired hypothyroidism E03.9 Active confirmed 443467179 Problem Intervertebral disc disorder with radiculopathy of lumbar region M51.16 Active confirmed 674488802920224 Problem Neuropathy of right hand G56.91 Active confirmed 752583675 Problem Peripheral artery disease I73.9 Active confirmed 463926836 Problem Essential hypertension I10 Active confirmed 37921191 Problem Chronic fatigue R53.82 Active confirmed 8422 9001 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 Active conf irmed 650700048 Problem Iron deficiency anemia, unspecified iron deficiency an emia type D50.9 Active confirmed 24006357 Problem Chronic diastolic congestive heart failure I50.32 Active confirmed 494541803 Problem Blood loss anemia D50.0 Active confirmed 41 4550484 Problem Frequent falls R29.6 Active confirmed 54038 2001 Problem Spondylosis 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 myelopathy or radiculopathy M47.816 Active confirmed 18472365 Problem Paresthesia of both hands R20.2 Active confirmed 544899459 Problem Daytime somnolence R40.0 Active confirmed 1 05377292313 Problem Lumbar radiculopathy M54.16 Active confirmed 729260648 Problem Duodenitis K29.80 Active confirmed 42213478 Problem Right leg paresthesias R20.2 Active confirmed 35623885632632424 Problem Arm paresthesia, right R20.2 Active confirmed 01862813809079735 Problem Intention tremor G25.2 Active confirmed 307 44246 ALLERGIES Allergen (clinical drug ingredient) Drug/Non Drug Allergy do cumented on EMR Reaction Allergy Type Onset Date Status gatifloxacin Gatifloxacin([facility] Code:[address]-85) Rash Drug All ergy Active Tequin Rash Non Drug Allergy Active ENCOUNTERS from 1950 to 2020-12-20 Encounter Location Date Provider Diagnosis [place] [address] [facility] [phone] [place] [address] [facility] IMMUNIZATIONS No Information SOCIAL HISTORY Tobacco Use: Social History Observation Description Date Details (start date - stop date) Former Smoker Sex Assigned At : Social History Observation Description Sex Assigned At Unknown Education: Question Answer Notes Level of Education: High School Audit Question Answer Notes Total Score: 0 Interpretation: Alcohol Education Language: Question Answer Notes Languages spoken: Romansh Gnosticism: Question Answer Notes Gnosticism 08 Yazidi Sexual Hx: Question Answer Notes Had sex [...] Notes Start Da te End Date Status amLODIPine Besylate 2.5 MG 2 tablets Orally Once a day Sep, Active Blood Pressure Cuff - as directed automatic arm cuff; Dx I10 Mar, Active metFORMIN HCl ER 500 MG TAKE TWO TABLETS BY MOUTH TWICE A DAY WITH ME ALS Active NovoLOG FlexPen 100 UNIT/ML 6 units three times a day with meals Subcutaneous TID Active Aspirin Low Dose 81 MG TAKE ONE TABLET BY MOUTH EVERY DAY Active Levothyroxine Sodium 75 MCG 1 tablet in the morning on an empty stomach Orally Once a day for 30 day(s) Nov, Active Torsemide 10 MG 1 tab Orally Daily hosp d/c 06/03/20 10 mg qd 30 Jan, 020 Active Carafate 1 GM 1 tablet on an empty stomach Orally thre e times a day for 30 Days Active DULoxetine HCl 60 MG 1 capsule Orally Once a day for 30 day(s) Nov, Active Atorvastatin Calcium 20 MG 1 tablet Orally Once a day Active Losartan Potassium 50 MG 1 and 1/2 tab to equal 75mg Orally Once a day Apr, Active Hospital bed _ as directed; electric Dx M51.16 Jul, Active Gabapentin 100 MG 1 capsule Orally bid for 90 days Active Ferrous Sulfate 325 (65 Fe) MG 1 tablet Orally bid Jan, Active Blood Pressure Kit - as directed dx: I10 June, Active Jardiance 10 MG 1 tablet Orally Once a day June, Active Biofreeze topically Active Blood Pressure Monitor - as directed dx: HTN Jul, Active Glucometer as directed Dx E11.65 Nov, A ctive HYDROcodone-Acetaminophen 7.5-325 MG 1 tablet as neede d Orally Daily; MDD#1, do not fill before 10/14/2020 for 30 Days Sep, Active Triamcinolone Acetonide 0.1 % apply thin layer to left ankle Externally Twice a day for 7 days Sep, Active tiZANidine HCl 4 MG TAKE ONE TABLET BY MOUTH TWICE A DAY for 90 Active Levemir FlexTouch 100 UNIT/ML 28 units Subcutaneous BID for 90 d ays Jan, Active Spironolactone 25 MG 1 tablet Orally bid Active HYDROcodone-Acetaminophen 7.5-325 MG 1 tablet as neede d Orally Daily; do not fill before 10/14 for 30 Days Nov, Act mukesh Walker - as directed 4-wheeled walker Dx M47.27 Jan, Active Pen [place] 07/10" as directed four times daily; Dx E11.8 0 Jan, Active Test Strips - as directed Dx E11.9; four times daily 2019 Active Pantoprazole Sodium 40 MG TAKE ONE TABLET BY MOUTH EVERY DAY for 90 Active Lancets - as directed four times daily; Dx E11.65 for 90 days Nov, Active PROCEDURES No Information RESULTS No Results REASON FOR VISIT script clarification MEDICAL (GENERAL) HISTORY Type Description Date Medical [...] NSTEMI 07/08/17 with 1 ANNABEL to LAD- [facility] Medical History Echo 07/08/17 at [facility]: E F 50%, grade 2 diastolic dysfunction, [...] Surgical History Drug-eluting stent to LAD at [facility] Surgical History EGD (gastric erosions, mild gastropathy) and (diverticulosis, otherwise nml) - Dr. Zambrano 07/2017 Surgical History Cataract Surgery - Both Eyes 2016 Hospitalization History surgeries as above Hospitalization History [facility] 07/07/2017 Hospitalization History GI bleed c acute [...] No Information FUNCTIONAL STATUS No Information ASSESSMENTS No Information PLAN OF TREATMENT Medication Medication Name Sig [...] Once a day for 30 day(s) Nov, Levothyroxine Sodium 75 MCG 1 tablet in the morning on an empty stomach Orally Once a day for 30 day(s) Nov, Next Appt Details Provider Name:Es Mei, 2021-04-25 10:00:00 AM, [address] [facility], , [place], [address], Insurance Providers Payer Name Payer Address Payer Phone Insured Name Patient Relati onship to Insured Coverage Start Date Coverage End Date AETNA MEDICARE AETNA [employer] [place] [address] [facility] [address] MARIANA SMITH self
--- OUTSIDE RECORDS SUMMARY | 2020-12-24 21:26 | CCD | Continuity of Care Document ---
Author Author Juju CONTI M.D. Organization Unknown Address [address] [place] [address] Phone [phone] Care Team Providers Care Enterprise Business Architect Name Role Phone Es Mei MD AUTM [phone] Problems Active Problems Provider Date Carpal tunnel syndrome Rhonda Plummer M.D. Onset: 02/24/2015 Essential tremor Zakia Conti M.D. Onset: 08/09/2020 Lesion of ulnar nerve Zakia Conti M.D. Onset: 08/09/2020 Mixed sensory-motor polyneuropathy Zakia Conti M.D. Onset : 08/09/2020 Intervertebral disc disorder of cervical region with m yelopathy Zakia Conti M.D. Onset: 08/09/2020 Spondylolysis Zakia Conti M.D. Onset: 08/09/2020 Spinal stenosis in cervical region Zakia Conti M.D. Onset : 10/19/2020 Cervical radiculopathy Zakia Conti M.D. Onset: 10/19/2020 Social History Type Date Description Comments Sex Unknown Tobacco Use Start: Unknown End: Unknown Patient is a former smoker Allergies, Adverse Reactions, Alerts Active Allergies Criticality Reaction | Severity Comments Date Abilify Unable to assess criticality made her mean 04/25/2011 TeQuin Unable to assess criticality rash 08/18/2013 Medications Active Medications SIG Qnty Indications Ordering Provide r Date Primidone 50mg Tablets half a tab po qhs for 1 week, then half a tab po bid for 1 week & then 1 po bid. 60tabs Zakia Conti M.D. 10/19/2020 Lidocaine HCL 2% Gel apply to neck and back bid 2Bottles Rhonda Plummer M.D. 08/22/2015 Power Chair m54.5, m54.6, g56.01, g56.02 1units [id number] Rhonda Plummer M.D. 06/22/2015 Latex Gloves use with lidocaine cream application 100units Rhonda Plummer M.D. 05/24/2011 Immunizations Description No Information Available Vital Signs Date Vital Result Comment 08/22/2015 1:07pm BP Systolic 120 mmHg BP Diastolic 70 mmHg Heart Rate 76 /min Respiratory Rate 20 /min 06/22/2015 6:48am BP Systolic 118 mmHg BP Diastolic 70 mmHg Heart Rate 56 /min Respiratory Rate 20 /min Results Description No Information Available Procedures Date Code Description Status 10/19/2020 03420 Office/Outpatient [facility] MDM 40-54 Min Completed 08/15/2020 62562 Nerve Conduction 9-10 Studies Co mpleted 08/15/2020 96973 Needle Electromyography Complete , Five Or More Muscles Studied Completed 08/15/2020 87098 Needle Electromyography Complete , Five Or More Muscles Studied Completed 08/09/2020 74722 Office/Outpatient [facility] MDM 6 0-74 Minutes Completed Medical Devices Description No Information Available Encounters Type Date Location Provider Dx Diagnosis Office Visit 10/19/2020 2:[place]p [place].02 Spinal stenosis, cervical region M50.022 Cervical disc disorder at C5 -C6 level with myelopathy M54.12 Radiculopathy, cervical manoj on G25.0 Essential tremor G56.03 Carpal tunnel syndrome, bila teral upper limbs Office Visit 08/09/2020 9:30a Main office - Shaun Arnold G25.0 Essential tremor G56.03 Carpal tunnel syndrome, bila teral upper limbs G56.23 Lesion of ulnar nerve, bilat eral upper limbs E11.42 Type 2 diabetes mellitus wit h diabetic polyneuropathy M50.022 Cervical disc disorder at C5 -C6 level with myelopathy M43.06 Spondylolysis, lumbar region Assessments Date Code Description Provider 10/19/2020 M48.02 Spinal stenosis, cervical region Zakia Conti M.D. 10/19/2020 M50.022 Cervical disc disorder at C5-C6 level with myelopathy Zakia Conti M.D. 10/19/2020 M54.12 Radiculopathy, cervical region Tomi Conti M.D. 10/19/2020 G25.0 Essential tremor Jarret Olea 10/19/2020 G56.03 Carpal tunnel syndrome, bilatera l upper limbs Zakia Conti M.D. 08/15/2020 M54.2 Cervicalgia Zakia Conti M.D. 08/15/2020 R20.2 Paresthesia of skin Zakia Conti M.D. 08/15/2020 M62.9 Disorder of muscle, unspecified Zakia Conti M.D. 08/15/2020 G56.01 Carpal tunnel syndrome, right up per limb Zakia Conti M.D. 08/15/2020 G56.02 Carpal tunnel syndrome, left upp er limb Zakia Conti M.D. 08/15/2020 M54.12 Radiculopathy, cervical region Tomi Conti M.D. 08/09/2020 G25.0 Essential tremor Jarret Olea 08/09/2020 G56.03 Carpal tunnel syndrome, bilatera l upper limbs Zakia Conti M.D. 08/09/2020 G56.23 Lesion of ulnar nerve, bilateral upper limbs Zakia Conti M.D. 08/09/2020 E11.42 Type 2 diabetes mellitus with di abetic polyneuropathy Zakia Conti M.D. 08/09/2020 M50.022 Cervical disc disorder at C5-C6 level with myelopathy Zakia Conti M.D. 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 Plan of Treatment Future Appointment(s):* 01/24/2021 12:45 pm - Zakia Conti M.D. at Main office [facility] 08/22/2015 - Valorie Subramanian P.A.-C.* R51 Headache* Comments:* Controlled. * R41.840 Attention and concentration deficit* Comments:* No abrupt change. * M54.2 Cervicalgia* Comments:* Continue current medications. * M54.12 Radiculopathy, cervical region * M47.892 Other spondylosis, cervical region * M54.6 Pain in thoracic spine * M47.894 Other spondylosis, thoracic region * M54.5 Low back pain* Comments:* Continue current medications. * M47.896 Other spondylosis, lumbar region * M48.06 Spinal stenosis, lumbar region * G56.02 Carpal tunnel syndrome, left upper limb* Comments:* We will contact orthopedics regarding our referral. * G56.01 Carpal tunnel syndrome, right upper limb * G56.21 Lesion of ulnar nerve, right upper limb * G56.22 Lesion of ulnar nerve, left upper limb* Follow up:* 3 months Functional Status Description No Information Available Mental Status Description No Information Available Referrals Description No Information Available"
--- OUTSIDE RECORDS SUMMARY | 2020-12-24 21:26 | CCD ---
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 Active confirmed 729806937 Problem Coronary artery disease invo lving [place] coronary artery of [place] heart without angina pectoris I25.10 Active confirmed 253601 5901575 Problem Moderate episode of recurrent major depressive disorder F33.1 Active confirmed 969281783 Problem Other cirrhosis of liver K74.69 Active confirmed 82818235 Problem Portal venous hypertension K76.6 Active confirmed 75410640 Problem Type 2 diabetes mellitus with hyperglycemia E11.65 Active confirmed 11051716 Problem Other chronic pain G89.29 Active confirmed 8 3251797 Problem Microcytic anemia D50.9 Active confirmed 23 3232233 Problem Fibromyalgia M79.7 Active confirmed 9604704 05 Problem 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 Active confirmed 6345367278787179 Problem Vitamin D deficiency E55.9 Active confirmed 73277205 Problem Type 2 diabetes mellitus with unspecified complications E11.8 Active confirmed 02691133 Problem Mixed hyperlipidemia E78.2 Active confirmed 095239435 Problem Pain in right knee M25.561 Active confirmed 44081512 Problem Myalgia, other site M79.18 Active confirmed 03056160 Problem Neuralgia of right lower extremity M79.2 Activ e confirmed 256454906531043 Problem Lumbosacral spondylosis with radiculopathy M47.27 Active confirmed 449491494 Problem Low back pain M54.5 Active confirmed 822430 009 Problem Acquired hypothyroidism E03.9 Active confirmed 781645480 Problem Intervertebral disc disorder with radiculopathy of lumbar region M51.16 Active confirmed 699659188976709 Problem Neuropathy of right hand G56.91 Active confirmed 160621701 Problem Peripheral artery disease I73.9 Active confirmed 198028805 Problem Essential hypertension I10 Active confirmed 10206620 Problem Chronic fatigue R53.82 Active confirmed 8422 9001 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 Active conf irmed 885999560 Problem Iron deficiency anemia, unspecified iron deficiency an emia type D50.9 Active confirmed 56934986 Problem Chronic diastolic congestive heart failure I50.32 Active confirmed 028739188 Problem Blood loss anemia D50.0 Active confirmed 41 3104284 Problem Frequent falls R29.6 Active confirmed 15970 2001 Problem Spondylosis 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 myelopathy or radiculopathy M47.816 Active confirmed 17621726 Problem Paresthesia of both hands R20.2 Active confirmed 946519754 Problem Daytime somnolence R40.0 Active confirmed 1 97093296737 Problem Lumbar radiculopathy M54.16 Active confirmed 543495350 Problem Duodenitis K29.80 Active confirmed 13188771 Problem Right leg paresthesias R20.2 Active confirmed 74548148685405386 Problem Arm paresthesia, right R20.2 Active confirmed 57333497254828671 Problem Intention tremor G25.2 Active confirmed 307 36300 ALLERGIES Allergen (clinical drug ingredient) Drug/Non Drug Allergy do cumented on EMR Reaction Allergy Type Onset Date Status gatifloxacin Gatifloxacin([facility] Code:[address]-15) Rash Drug All ergy Active Tequin Rash Non Drug Allergy Active ENCOUNTERS from 1950 to 2020-12-01 Encounter Location Date Provider Diagnosis [facility] [address] [facility] [phone] [place] [address] Nov, Es [place] Other chronic pain G89.29 IMMUNIZATIONS No Information SOCIAL HISTORY Tobacco Use: Social History Observation Description Date Details (start date - stop date) Former Smoker Sex Assigned At : Social History Observation Description Sex Assigned At Unknown Education: Question Answer Notes Level of Education: High School Audit Question Answer Notes Total Score: 0 Interpretation: Alcohol Education Language: Question Answer Notes Languages spoken: Greek Mandaeism: Question Answer Notes Mandaeism 08 Muslim Sexual Hx: Question Answer Notes Had sex [...] Notes Start Da te End Date Status Atorvastatin Calcium 20 MG 1 tablet Orally Once a day Active Carafate 1 GM 1 tablet on an empty stomach Orally thre e times a day for 30 Days Active Glucometer as directed Dx E11.65 Nov, A ctive HYDROcodone-Acetaminophen 7.5-325 MG 1 tablet as neede d Orally Daily; MDD#1, do not fill before 10/14/2020 for 30 Days Sep, Active Jardiance 10 MG 1 tablet Orally Once a day June, Active Ferrous Sulfate 325 (65 Fe) MG 1 tablet Orally bid Jan, Active Aspirin Low Dose 81 MG TAKE ONE TABLET BY MOUTH EVERY DAY Active Gabapentin 100 MG 1 capsule Orally bid for 90 days Active Spironolactone 25 MG 1 tablet Orally bid Active NovoLOG FlexPen 100 UNIT/ML INJECT UNDER THE SKIN PER SLIDING SCALE WITH MEALS (MAXIMUM DAILY DOSE = 24 UNITS) for 63 Active Levothyroxine Sodium 50 MCG 1 tablet in the morning on an empty stomach Orally Once a day for 30 day(s) Sep, Active Torsemide 10 MG 1 tab Orally Daily hosp d/c 06/03/20 10 mg qd Jan, 020 Active Pen [place] 07/10" as directed four times daily; Dx E11.8 0 Jan, Active HYDROcodone-Acetaminophen 7.5-325 MG 1 tablet as neede d Orally Daily; do not fill before 10/14 for 30 Days Nov, Act mukesh Pantoprazole Sodium 40 MG 1 tablet Orally Once a day for 90 Active Levemir FlexTouch 100 UNIT/ML 28 units Subcutaneous BID for 90 d ays Jan, Active Biofreeze topically Active Losartan Potassium 50 MG 1 and 1/2 tab to equal 75mg Orally Once a day Apr, Active Lancets - as directed four times daily; Dx E11.65 for 90 days Nov, Active Blood Pressure Cuff - as directed automatic arm cuff; Dx I10 Mar, Active Cymbalta 30 MG 1 capsule Orally Once a day for 90 days Active amLODIPine Besylate 2.5 MG 1 tablet Orally Once a day A 2020 Active Hospital bed _ as directed; electric Dx M51.16 Jul, Active metFORMIN HCl ER 500 MG TAKE TWO TABLETS BY MOUTH TWICE A DA Y WITH MEALS for 30 Active tiZANidine HCl 4 MG TAKE ONE TABLET BY MOUTH TWICE A DAY for 90 Active Blood Pressure Kit - as directed dx: I10 June, Active Test Strips - as directed Dx E11.9; four times daily 2019 Active Blood Pressure Monitor - as directed dx: HTN Jul, Active Walker - as directed 4-wheeled walker Dx M47.27 Jan, Active Triamcinolone Acetonide 0.1 % apply thin layer to left ankle Externally Twice a day for 7 days Sep, Active PROCEDURES No Information RESULTS No Results REASON FOR VISIT vicodin MEDICAL (GENERAL) HISTORY Type Description Date Medical [...] NSTEMI 07/08/17 with 1 ANNABEL to LAD- [facility] Medical History Echo 07/08/17 at [facility]: E F 50%, grade 2 diastolic [...] Surgical History Drug-eluting stent to LAD at [facility] Surgical History EGD (gastric erosions, mild gastropathy) and (diverticulosis, otherwise nml) - Dr. Zambrano 07/2017 Surgical History Cataract Surgery - Both Eyes 2016 Hospitalization History surgeries as above Hospitalization History [facility] 07/07/2017 Hospitalization History GI bleed c acute blood loss anemia and ASAF I (cr to 1.5) c LA 3.7-anne hgb 8.5 sp 2u PRBCs to 10 at hi, EGD/colon c mild gastric HTN c few [...] Treatment Notes Treatm ent Clinical Notes Nov, Other chronic pain (ICD-10 - G89.29) PLAN OF TREATMENT Medication Medication Name Sig Start Date Stop Date HYDROcodone-Acetaminophen 7.5-325 MG 1 tablet as neede d Orally Daily; do not fill before 10/14 for 30 Days Nov, Triamcinolone Acetonide 0.1 % apply thin layer to left ankle Externally Twice a day for 7 days Sep, metFORMIN HCl ER 500 MG TAKE TWO TABLETS BY MOUTH TWICE A DA Y WITH MEALS for 30 Levemir FlexTouch 100 UNIT/ML 28 units Subcutaneous BID for 90 days Jan, NovoLOG FlexPen 100 UNIT/ML INJECT UNDER THE SKIN PER SLIDING SCALE WITH MEALS (MAXIMUM DAILY DOSE = 24 UNITS) for 63 Next Appt Details Provider Name:Es Mei, 2020-12-12 11:00:00 AM, [address] [facility], , [place], [address], Insurance Providers Payer Name Payer Address Payer Phone Insured Name Patient Relati onship to Insured Coverage Start Date Coverage End Date AETNA MEDICARE AETNA [place] [employer] [address] [facility] [phone] MARIANA SMITH self
--- OUTSIDE RECORDS SUMMARY | 2020-12-24 21:26 | CCD ---
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 Active confirmed 264341327 Problem Coronary artery disease invo [place]ving [place] coronary artery of [place] heart without angina pectoris I25.10 Active confirmed 311416 2263732 Problem Moderate episode of recurrent major depressive disorder F33.1 Active confirmed 838577070 Problem Other cirrhosis of liver K74.69 Active confirmed 10816171 Problem Portal venous hypertension K76.6 Active confirmed 53062152 Problem Type 2 diabetes mellitus with hyperglycemia E11.65 Active confirmed 39396363 Problem Other chronic pain G89.29 Active confirmed 8 1894732 Problem Microcytic anemia D50.9 Active confirmed 23 4775153 Problem Fibromyalgia M79.7 Active confirmed 9361898 05 Problem 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 Active confirmed 7873114513418208 Problem Vitamin D deficiency E55.9 Active confirmed 45474153 Problem Type 2 diabetes mellitus with unspecified complications E11.8 Active confirmed 83144497 Problem Mixed hyperlipidemia E78.2 Active confirmed 413740365 Problem Pain in right knee M25.561 Active confirmed 32283411 Problem Myalgia, other site M79.18 Active confirmed 69617524 Problem Neuralgia of right lower extremity M79.2 Activ e confirmed 106190037511408 Problem Lumbosacral spondylosis with radiculopathy M47.27 Active confirmed 089928159 Problem Low back pain M54.5 Active confirmed 976656 009 Problem Acquired hypothyroidism E03.9 Active confirmed 580927294 Problem Intervertebral disc disorder with radiculopathy of lumbar region M51.16 Active confirmed 864194566049976 Problem Neuropathy of right hand G56.91 Active confirmed 752529819 Problem Peripheral artery disease I73.9 Active confirmed 774589400 Problem Essential hypertension I10 Active confirmed 82155746 Problem Chronic fatigue R53.82 Active confirmed 8422 9001 Problem medical terminologist 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 Z79.4 Active conf irmed 224532628 Problem Iron deficiency anemia, unspecified iron deficiency an emia type D50.9 Active confirmed 99445962 Problem Chronic diastolic congestive heart failure I50.32 Active confirmed 137748979 Problem Blood loss anemia D50.0 Active confirmed 41 0642974 Problem Frequent falls R29.6 Active confirmed 52311 2001 Problem Spondylosis 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 myelopathy or radiculopathy M47.816 Active confirmed 92942077 Problem Paresthesia of both hands R20.2 Active confirmed 484120925 Problem Daytime somnolence R40.0 Active confirmed 1 10169412495 Problem Lumbar radiculopathy M54.16 Active confirmed 958105925 Problem Duodenitis K29.80 Active confirmed 66748947 Problem Right leg paresthesias R20.2 Active confirmed 07147750196379331 Problem Arm paresthesia, right R20.2 Active confirmed 85422787262714464 Problem Intention tremor G25.2 Active confirmed 307 87048 ALLERGIES Allergen (clinical drug ingredient) Drug/Non Drug Allergy do cumented on EMR Reaction Allergy Type Onset Date Status gatifloxacin Gatifloxacin([facility] Code:[address]-61) Rash Drug All ergy Active Tequin Rash Non Drug Allergy Active ENCOUNTERS from 1950 to 2020-10-06 Encounter Location Date Provider Diagnosis [place] [id number] [facility] [phone] [place] [address] Sep, Es Mei IMMUNIZATIONS No Information SOCIAL HISTORY Tobacco Use: Social History Observation Description Date Details (start date - stop date) Former Smoker Sex Assigned At : Social History Observation Description Sex Assigned At Unknown Education: Question Answer Notes Level of Education: High School Audit Question Answer Notes Total Score: 0 Interpretation: Alcohol Education Language: Question Answer Notes Languages spoken: Telugu Taoist: Question Answer Notes Taoist 08 Anabaptism Sexual Hx: Question Answer Notes Had sex [...] Notes Start Da te End Date Status HYDROcodone-Acetaminophen 7.5-325 MG 1 tablet as neede d Orally Daily; do not fill before 10/14 for 30 Days Sep, Act mukesh Torsemide 10 MG 1 tab Orally Daily hosp d/c 06/03/20 10 mg qd 30 Jan, Active HYDROcodone-Acetaminophen 7.5-325 MG 1 tablet as neede d Orally Daily; MDD#1, do not fill before 10/14/2020 for 30 Days Sep, Active Blood Pressure Kit - as directed dx: I10 June, Active Spironolactone 25 MG 1 tablet Orally bid Active Blood Pressure Monitor - as directed dx: HTN Jul, Active amLODIPine Besylate 2.5 MG 1 tablet Orally Once a day 06 A 2020 Active Walker - as directed 4-wheeled walker Dx M47.27 Jan, Active Hospital bed _ as directed; electric Dx M51.16 Jul, Active Pen [place] 07/10" as directed four times daily; Dx E11.8 0 Jan, Active Atorvastatin Calcium 20 MG 1 tablet Orally Once a day Active Pantoprazole Sodium 40 MG 1 tablet Orally Once a day for 90 Active Ferrous Sulfate 325 (65 Fe) MG 1 tablet Orally bid Jan, Active NovoLOG 100 UNIT/ML as directed 6 units with meals Subcutaneous mdd 24 units Active Carafate 1 GM 1 tablet on an empty stomach Orally thre e times a day for 30 Days Active Levothyroxine Sodium 50 MCG 1 tablet in the morning on an empty stomach Orally Once a day for 30 day(s) Sep, Active Lancets - as directed four times daily; Dx E11.65 for 90 days Nov, Active Gabapentin 100 MG 1 capsule Orally bid for 90 days Active metFORMIN HCl ER 500 MG 2 tablet Orally Twice daily with breakfa st and dinner Active Aspirin Low Dose 81 MG TAKE ONE TABLET BY MOUTH EVERY DAY Active Test Strips - as directed Dx E11.9; four times daily 2019 Active Levemir FlexTouch 100 UNIT/ML 28 units Subcutaneous BID Jan, Active Glucometer as directed Dx E11.65 Nov, A ctive Losartan Potassium 50 MG 1 and 1/2 tab to equal 75mg Orally Once a day Apr, Active Cymbalta 30 MG 1 capsule Orally Once a day for 90 days Active Biofreeze topically Active Jardiance 10 MG 1 tablet Orally Once a day June, Active tiZANidine HCl 4 MG TAKE ONE TABLET BY MOUTH TWICE A DAY for 90 Active Blood Pressure Cuff - as directed automatic arm cuff; Dx I10 Mar, Active PROCEDURES No Information RESULTS No Results REASON FOR VISIT med list confirmation MEDICAL (GENERAL) HISTORY Type Description Date Medical [...] NSTEMI 07/08/17 with 1 ANNABEL to LAD- [facility] Medical History Echo 07/08/17 at [facility]: E F 50%, grade 2 diastolic [...] Surgical History Drug-eluting stent to LAD at [facility] Surgical History EGD (gastric erosions, mild gastropathy) and (diverticulosis, otherwise nml) - Dr. Zambrano 07/2017 Surgical History Cataract Surgery - Both Eyes 2016 Hospitalization History surgeries as above Hospitalization History [facility] 07/07/2017 Hospitalization History GI bleed c acute [...] Medication Name Sig Start Date Stop Date Levemir FlexTouch 100 UNIT/ML 28 units Subcutaneous BID Jan, Jardiance 10 MG 1 tablet Orally Once a day June, NovoLOG 100 UNIT/ML as directed 6 units with meals Subcutaneous mdd 24 units Torsemide 10 MG 1 tab Orally Daily Jan, Losartan Potassium 50 MG 1 and 1/2 tab to equal 75mg Orally Once a day Apr, Spironolactone 25 MG 1 tablet Orally bid amLODIPine Besylate 2.5 MG 1 tablet Orally Once a day Sep, 21 Levothyroxine Sodium 50 MCG 1 tablet in the morning on an empty stomach Orally Once a day for 30 day(s) Sep, metFORMIN HCl ER 500 MG 2 tablet Orally Twice daily with breakfa st and dinner HYDROcodone-Acetaminophen 7.5-325 MG 1 tablet as neede d Orally Daily; do not fill before 10/14 for 30 Days Sep, HYDROcodone-Acetaminophen 7.5-325 MG 1 tablet as neede d Orally Daily; MDD#1, do not fill before 10/14/2020 for 30 Days Sep, Next Appt Details Provider Name:Rosa M Vargas, 10-11 11:00:00 AM, [address] [place] [address], , [place], [address], Provider Name:Es Mei, 2020-11-08 08:00:00 AM, [address] [place] [address], , [place], [address], Insurance Providers Payer Name Payer Address Payer Phone Insured Name Patient Relati onship to Insured Coverage Start Date Coverage End Date AETNA MEDICARE AETNA [employer] INSURANCE [employer] [address] [facility] [address] MARIANA SMITH self
--- OUTSIDE RECORDS SUMMARY | 2020-12-24 21:26 | CCD ---
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 Active confirmed 616577168 Problem Coronary artery disease invo lving [place] coronary artery of [place] heart without angina pectoris I25.10 Active confirmed 205712 6955168 Problem Moderate episode of recurrent major depressive disorder F33.1 Active confirmed 834142529 Problem Other cirrhosis of liver K74.69 Active confirmed 17275771 Problem Portal venous hypertension K76.6 Active confirmed 61431349 Problem Type 2 diabetes mellitus with hyperglycemia E11.65 Active confirmed 16473565 Problem Other chronic pain G89.29 Active confirmed 8 9582623 Problem Microcytic anemia D50.9 Active confirmed 23 6702306 Problem Fibromyalgia M79.7 Active confirmed 3250632 05 Problem 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 Active confirmed 1601147569997942 Problem Vitamin D deficiency E55.9 Active confirmed 95630875 Problem Type 2 diabetes mellitus with unspecified complications E11.8 Active confirmed 76887107 Problem Mixed hyperlipidemia E78.2 Active confirmed 528017303 Problem Pain in right knee M25.561 Active confirmed 27802421 Problem Myalgia, other site M79.18 Active confirmed 42189040 Problem Neuralgia of right lower extremity M79.2 Activ e confirmed 078149888871768 Problem Lumbosacral spondylosis with radiculopathy M47.27 Active confirmed 643032546 Problem Low back pain M54.5 Active confirmed 451788 009 Problem Acquired hypothyroidism E03.9 Active confirmed 175214221 Problem Intervertebral disc disorder with radiculopathy of lumbar region M51.16 Active confirmed 824164612489145 Problem Neuropathy of right hand G56.91 Active confirmed 103461942 Problem Peripheral artery disease I73.9 Active confirmed 384842101 Problem Essential hypertension I10 Active confirmed 25111940 Problem Chronic fatigue R53.82 Active confirmed 8422 9001 Problem 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.4 Active conf irmed 402218931 Problem Iron deficiency anemia, unspecified iron deficiency an emia type D50.9 Active confirmed 37781812 Problem Chronic diastolic congestive heart failure I50.32 Active confirmed 411771388 Problem Blood loss anemia D50.0 Active confirmed 41 8297194 Problem Frequent falls R29.6 Active confirmed 45491 2001 Problem Spondylosis 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 myelopathy or radiculopathy M47.816 Active confirmed 36451139 Problem Paresthesia of both hands R20.2 Active confirmed 288141963 Problem Daytime somnolence R40.0 Active confirmed 1 20785417935 Problem Lumbar radiculopathy M54.16 Active confirmed 893071542 Problem Duodenitis K29.80 Active confirmed 74665722 Problem Right leg paresthesias R20.2 Active confirmed 52125516403248369 Problem Arm paresthesia, right R20.2 Active confirmed 96240604636363931 Problem Intention tremor G25.2 Active confirmed 307 62473 ALLERGIES Allergen (clinical drug ingredient) Drug/Non Drug Allergy do cumented on EMR Reaction Allergy Type Onset Date Status gatifloxacin Gatifloxacin([facility] Code:[address]-18) Rash Drug All ergy Active Tequin Rash Non Drug Allergy Active ENCOUNTERS from 1952 to 2020-12-14 Encounter Location Date Provider Diagnosis [place] [address] [facility] [phone] [place] [address] Nov, Es Mei Acquired hypothyroidism E03. 9 IMMUNIZATIONS No Information SOCIAL HISTORY Tobacco Use: Social History Observation Description Date Details (start date - stop date) Former Smoker Sex Assigned At : Social History Observation Description Sex Assigned At Unknown Education: Question Answer Notes Level of Education: High School Audit Question Answer Notes Total Score: 0 Interpretation: Alcohol Education Language: Question Answer Notes Languages spoken: Qatari Tenriism: Question Answer Notes Tenriism 08 Taoist Sexual Hx: Question Answer Notes Had sex [...] 4-wheeled walker Dx M47.27 Jan, Active Pen [place] 07/10" as directed four times daily; Dx E11.8 0 Jan, Active Test Strips - as directed Dx E11.9; four times daily 2019 Active Pantoprazole Sodium 40 MG TAKE ONE TABLET BY MOUTH EVERY DAY for 90 Active Lancets - as directed four times daily; Dx E11.65 for 90 days Nov, Active PROCEDURES No Information RESULTS No Results REASON FOR VISIT Lab results MEDICAL (GENERAL) HISTORY Type Description Date Medical [...] NSTEMI 07/08/17 with 1 ANNABEL to LAD- [facility] Medical History Echo 07/08/17 at [facility]: E F 50%, grade 2 diastolic dysfunction, [...] Surgical History Drug-eluting stent to LAD at [facility] Surgical History EGD (gastric erosions, mild gastropathy) and (diverticulosis, otherwise nml) - Dr. Zambrano 07/2017 Surgical History Cataract Surgery - Both Eyes 2016 Hospitalization History surgeries as above Hospitalization History [facility] 07/07/2017 Hospitalization History GI bleed c acute blood loss anemia and ASAF I (cr to 1.5) c LA 3.7-anne hgb 8.5 sp 2u PRBCs to 10 at me, EGD/colon c mild gastric HTN c few [...] Treatment Notes Treatm ent Clinical Notes Nov, Acquired hypothyroidism (ICD-10 - E03.9) PLAN OF TREATMENT Medication Medication Name Sig [...] Once a day for 30 day(s) 1 Nov, Levothyroxine Sodium 75 MCG 1 tablet in the morning on an empty stomach Orally Once a day for 30 day(s) Nov, Future Test Test Name Order Date TSH [id number] Next Appt Details Provider Name:sE Mei, 2021-04-25 10:00:00 AM, [address] [facility], , [place], [address], Insurance Providers Payer Name Payer Address Payer Phone Insured Name Patient Relati onship to Insured Coverage Start Date Coverage End Date AETNA MEDICARE AETNA [employer]ANCE [facility] [address] [facility] [phone] MARIANA SMITH self
--- OUTSIDE RECORDS SUMMARY | 2020-12-24 21:26 | CCD ---
Author Author [facility] Organization 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 Active confirmed 555369670 Problem Coronary artery disease invo lving [place] coronary artery of [place] heart without angina pectoris I25.10 Active confirmed 323483 8843226 Problem Moderate episode of recurrent major depressive disorder F33.1 Active confirmed 638717405 Problem Other cirrhosis of liver K74.69 Active confirmed 34505225 Problem Portal venous hypertension K76.6 Active confirmed 86281154 Problem Type 2 diabetes mellitus with hyperglycemia E11.65 Active confirmed 53437901 Problem Other chronic pain G89.29 Active confirmed 8 4918615 Problem Microcytic anemia D50.9 Active confirmed 23 5061328 Problem Fibromyalgia M79.7 Active confirmed 3657076 05 Problem 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 Active confirmed 5684628615729210 Problem Vitamin D deficiency E55.9 Active confirmed 46089451 Problem Type 2 diabetes mellitus with unspecified complications E11.8 Active confirmed 77123173 Problem Mixed hyperlipidemia E78.2 Active confirmed 685390521 Problem Pain in right knee M25.561 Active confirmed 12497763 Problem Myalgia, other site M79.18 Active confirmed 48968084 Problem Neuralgia of right lower extremity M79.2 Activ e confirmed 925948051668188 Problem Lumbosacral spondylosis with radiculopathy M47.27 Active confirmed 366245270 Problem Low back pain M54.5 Active confirmed 513130 009 Problem Acquired hypothyroidism E03.9 Active confirmed 773590784 Problem Intervertebral disc disorder with radiculopathy of lumbar region M51.16 Active confirmed 143308359842398 Problem Neuropathy of right hand G56.91 Active confirmed 516985693 Problem Peripheral artery disease I73.9 Active confirmed 414178754 Problem Essential hypertension I10 Active confirmed 30968204 Problem Chronic fatigue R53.82 Active confirmed 8422 9001 Problem jail 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 Z79.4 Active conf irmed 004349758 Problem Iron deficiency anemia, unspecified iron deficiency an emia type D50.9 Active confirmed 17820243 Problem Chronic diastolic congestive heart failure I50.32 Active confirmed 793519868 Problem Blood loss anemia D50.0 Active confirmed 41 1848504 Problem Frequent falls R29.6 Active confirmed 38033 2001 Problem Spondylosis 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 myelopathy or radiculopathy M47.816 Active confirmed 29638735 Problem Paresthesia of both hands R20.2 Active confirmed 819929089 Problem Daytime somnolence R40.0 Active confirmed 1 58346801865 Problem Lumbar radiculopathy M54.16 Active confirmed 038081742 Problem Duodenitis K29.80 Active confirmed 97573557 Problem Right leg paresthesias R20.2 Active confirmed 24161587421216762 Problem Arm paresthesia, right R20.2 Active confirmed 71360977019334017 Problem Intention tremor G25.2 Active confirmed 307 09800 ALLERGIES Allergen (clinical drug ingredient) Drug/Non Drug Allergy do cumented on EMR Reaction Allergy Type Onset Date Status gatifloxacin Gatifloxacin([facility] 3[facility] Code:[address]-15) Rash Drug All ergy Active Tequin Rash Non Drug Allergy Active ENCOUNTERS from 1950 to 2020-10-13 Encounter Location Date Provider Diagnosis [place] [address] [facility] [phone] [place] [address] Sep, Rosa M Vargas Rash R21 ; Type 2 diabetes m ellitus with unspecified complications E11.8 ; terminal clerk 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 Z79.4 and Essential hypertension I10 IMMUNIZATIONS No Information SOCIAL HISTORY Tobacco Use: Social History Observation Description Date Details (start date - stop date) Former Smoker Sex Assigned At : Social History Observation Description Sex Assigned At Unknown Education: Question Answer Notes Level of Education: High School Audit Question Answer Notes Total Score: 0 Interpretation: Alcohol Education Language: Question Answer Notes Languages spoken: Indonesian Holiness: Question Answer Notes Holiness 08 Restorationist Sexual Hx: Question Answer Notes Had sex [...] REASON FOR REFERRAL No Information VITAL SIGNS Weight 177.4 lbs Sep, Weight-kg 80.47 kg Sep, Height 63.5 in Sep, BMI 30.93 kg/m2 Sep, Heart Rate 83 /min Sep, Respiratory Rate 18 /min Sep, Temperature 96.5 degrees Fahrenheit Sep, Oximetry 97 Sep, Blood pressure systolic 160 mm Hg Sep, Blood pressure diastolic 82 mm Hg Sep, MEDICATIONS Medication SIG (Take, Route, Frequency, Duration) Notes Start Da te End Date Status Aspirin Low Dose 81 MG TAKE ONE TABLET BY MOUTH EVERY DAY Active HYDROcodone-Acetaminophen 7.5-325 MG 1 tablet as neede d Orally Daily; do not fill before 10/14 for 30 Days Sep, Act mukesh Atorvastatin Calcium 20 MG 1 tablet Orally Once a day Active Carafate 1 GM 1 tablet on an empty stomach Orally thre e times a day for 30 Days Active NovoLOG FlexPen 100 UNIT/ML INJECT UNDER THE SKIN PER SLIDING SCALE WITH MEALS (MAXIMUM DAILY DOSE = 24 UNITS) for 63 Active Ferrous Sulfate 325 (65 Fe) MG 1 tablet Orally bid Jan, Active Jardiance 10 MG 1 tablet Orally Once a day June, Active Gabapentin 100 MG 1 capsule Orally bid for 90 days Active Spironolactone 25 MG 1 tablet Orally bid Active Blood Pressure Cuff - as directed automatic arm cuff; Dx I10 Mar, Active Levothyroxine Sodium 50 MCG 1 tablet in the morning on an empty stomach Orally Once a day for 30 day(s) Sep, Active Torsemide 10 MG 1 tab Orally Daily hosp d/c 06/03/20 10 mg qd 30 Jan, 020 Active Lancets - as directed four times daily; Dx E11.65 for 90 days Nov, Active Pen [place] 07/10" as directed four times daily; Dx E11.8 0 Jan, Active Pantoprazole Sodium 40 MG 1 tablet Orally Once a day for 90 Active metFORMIN HCl ER 500 MG TAKE TWO TABLETS BY MOUTH TWICE A DA Y WITH MEALS for 30 Active Cymbalta 30 MG 1 capsule Orally Once a day for 90 days Active Losartan Potassium 50 MG 1 and 1/2 tab to equal 75mg Orally Once a day Apr, Active Levemir FlexTouch 100 UNIT/ML 28 units Subcutaneous BID for 90 d ays Jan, Active Biofreeze topically Active HYDROcodone-Acetaminophen 7.5-325 MG 1 tablet as neede d Orally Daily; MDD#1, do not fill before 10/14/2020 for 30 Days Sep, Active amLODIPine Besylate 2.5 MG 1 tablet Orally Once a day 06 A 2020 Active Hospital bed _ as directed; electric Dx M51.16 Jul, Active Glucometer as directed Dx E11.65 Nov, A ctive tiZANidine HCl 4 MG TAKE ONE TABLET [...] Information RESULTS No Results REASON FOR VISIT BP check MEDICAL (GENERAL) HISTORY Type Description Date Medical [...] [facility]/08[facility] 07/08/17 at [facility]: E F 50%, grade 2 diastolic [...] Drug-eluting stent to LAD at [facility] Surgical History EGD (gastric erosions, mild gastropathy) and (diverticulosis, otherwise nml) - Dr. Zambrano 07/2017 Surgical History Cataract Surgery - Both Eyes 2016 Hospitalization History surgeries as above Hospitalization History [facility] 07/07/2017 Hospitalization History GI bleed c [...] Notes Treatment Notes Treatm ent Clinical Notes Sep, Rash (ICD-10 - R21) Cream as prescribed to area of irritation on leg. F/U if sxs worsen/persist Sep, Type 2 diabetes mellitus wit h unspecified complications (ICD-10 - E11.8) Refills sent as pt requested Sep, jail 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 (ICD-10 - Z79.4 ) Sep, Essential hypertension (ICD-10 - I10) Discussed BP results with patient; no changes at this time to her medication, as she is unsure exactly what she is taking. Will relay into fto PCP. Pt agrees with plan Sep, Other Total time jenifer ng for the patient on the day of the encounter was 20 min PLAN OF TREATMENT Medication Medication Name Sig Start Date Stop Date Levemir FlexTouch 100 UNIT/ML 28 units Subcutaneous BID for 90 days Jan, Triamcinolone Acetonide 0.1 % apply thin layer to left ankle Externally Twice a day for 7 days Sep, NovoLOG FlexPen 100 UNIT/ML INJECT UNDER THE SKIN PER SLIDING SCALE WITH MEALS (MAXIMUM DAILY DOSE = 24 UNITS) for 63 metFORMIN HCl ER 500 MG TAKE TWO TABLETS BY MOUTH TWICE A DA Y WITH MEALS for 30 Treatment Notes Assessment Notes Clinical Notes Rash Cream as prescribed to area of irritation on leg. F/U if sxs worsen/persist Type 2 diabetes mellitus with unspecified complications Refills sent as pt requested Essential hypertension Discussed BP resu lts with patient; no changes at this time to her medication, as she is unsure exactly what she is taking. Will relay into fto PCP. Pt agrees with plan Next Appt Details Provider Name:Es Brenner Ham[place], 2020-11-08 08:00:00 AM, [address] [facility], , [place], [address], Insurance Providers Payer Name Payer Address Payer Phone Insured Name Patient Relati onship to Insured Coverage Start Date Coverage End Date AETNA MEDICARE AETNA [employer] [address] [facility] [id number] MARIANA SMITH self
--- OUTSIDE RECORDS SUMMARY | 2020-12-24 21:26 | CCD ---
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 Active confirmed 630877825 Problem Coronary artery disease invo lving [place] coronary artery of [place] heart without angina pectoris I25.10 Active confirmed 240036 0460613 Problem Moderate episode of recurrent major depressive disorder F33.1 Active confirmed 589074728 Problem Other cirrhosis of liver K74.69 Active confirmed 96133050 Problem Portal venous hypertension K76.6 Active confirmed 03629907 Problem Type 2 diabetes mellitus with hyperglycemia E11.65 Active confirmed 14685231 Problem Other chronic pain G89.29 Active confirmed 8 5398954 Problem Microcytic anemia D50.9 Active confirmed 23 5628855 Problem Fibromyalgia M79.7 Active confirmed 7489079 05 Problem 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 Active confirmed 4522887681860307 Problem Vitamin D deficiency E55.9 Active confirmed 17518354 Problem Type 2 diabetes mellitus with unspecified complications E11.8 Active confirmed 79309960 Problem Mixed hyperlipidemia E78.2 Active confirmed 469870374 Problem Pain in right knee M25.561 Active confirmed 15066345 Problem Myalgia, other site M79.18 Active confirmed 59551157 Problem Neuralgia of right lower extremity M79.2 Activ e confirmed 243027133131397 Problem Lumbosacral spondylosis with radiculopathy M47.27 Active confirmed 358981921 Problem Low back pain M54.5 Active confirmed 704489 009 Problem Acquired hypothyroidism E03.9 Active confirmed 682582109 Problem Intervertebral disc disorder with radiculopathy of lumbar region M51.16 Active confirmed 484955262415103 Problem Neuropathy of right hand G56.91 Active confirmed 789786256 Problem Peripheral artery disease I73.9 Active confirmed 804503242 Problem Essential hypertension I10 Active confirmed 87775506 Problem Chronic fatigue R53.82 Active confirmed 8422 9001 Problem penitentiary 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 Z79.4 Active conf irmed 706482242 Problem Iron deficiency anemia, unspecified iron deficiency an emia type D50.9 Active confirmed 56599932 Problem Chronic diastolic congestive heart failure I50.32 Active confirmed 074643791 Problem Blood loss anemia D50.0 Active confirmed 41 6420046 Problem Frequent falls R29.6 Active confirmed 81389 2001 Problem Spondylosis 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 myelopathy or radiculopathy M47.816 Active confirmed 23417464 Problem Paresthesia of both hands R20.2 Active confirmed 985012827 Problem Daytime somnolence R40.0 Active confirmed 1 17159355632 Problem Lumbar radiculopathy M54.16 Active confirmed 185011277 Problem Duodenitis K29.80 Active confirmed 42156607 Problem Right leg paresthesias R20.2 Active confirmed 60759591156214409 Problem Arm paresthesia, right R20.2 Active confirmed 22059205216108239 Problem Intention tremor G25.2 Active confirmed 307 72117 ALLERGIES Allergen (clinical drug ingredient) Drug/Non Drug Allergy do cumented on EMR Reaction Allergy Type Onset Date Status gatifloxacin Gatifloxacin([facility] Code:[address]-04) Rash Drug All ergy Active Tequin Rash Non Drug Allergy Active ENCOUNTERS from 1950 to 2020-10-17 Encounter Location Date Provider Diagnosis [facility] [address] [facility] [phone] [place] [address] Sep, Rosa M Alicia IMMUNIZATIONS No Information SOCIAL HISTORY Tobacco Use: Social History Observation Description Date Details (start date - stop date) Former Smoker Sex Assigned At : Social History Observation Description Sex Assigned At Unknown Education: Question Answer Notes Level of Education: High School Audit Question Answer Notes Total Score: 0 Interpretation: Alcohol Education Language: Question Answer Notes Languages spoken: Swedish Worship: Question Answer Notes Worship 08 Voodoo Sexual Hx: Question Answer Notes Had sex [...] 06/03/20 10 mg qd Jan, 020 Active Lancets - as directed four times daily; Dx E11.65 for 90 days Nov, Active Pen [place] 5/16" as directed four times daily; Dx E11.8 [...] Information RESULTS No Results REASON FOR VISIT bp MEDICAL (GENERAL) HISTORY Type Description Date Medical [...] 07/08/17 with 1 ANNABEL to LAD- [facility] Medical History Echo 07/08/17 at [facility]: E F 50%, grade 2 diastolic [...] Surgical History Drug-eluting stent to LAD at [facility] Surgical History EGD (gastric erosions, mild gastropathy) and (diverticulosis, otherwise nml) - Dr. Zambrano 07/2017 Surgical History Cataract Surgery - Both Eyes 2016 Hospitalization History surgeries as above Hospitalization History [facility] 07/07/2017 Hospitalization History GI bleed c acute blood loss anemia and ASAF I (cr to 1.5) c LA 3.7-anne hgb 8.5 sp 2u PRBCs [place] 10 [place], EGD/colon c mild gastric HTN c few [...] A DA Y WITH MEALS for 30 Next Appt Details Provider Name:Es Brenner Hamida, 2020-11-08 08:00:00 AM, [address] [facility] [facility], , [place], [address], Insurance Providers Payer Name Payer Address Payer Phone Insured Name Patient Relati onship to Insured Coverage Start Date Coverage End Date AETNA MEDICARE AETNA [employer]ANCE [employer] [address] [facility] [phone] MARIANA SMITH self
--- OUTSIDE RECORDS SUMMARY | 2020-12-24 21:26 | CCD | Continuity of Care Document ---
Author Author [facility] Organization Unknown Address [address], [address] [place] [address] Phone [phone] Care Team Providers Care Business Project Manager Name Role Phone Es Mei M.D. AUTM [phone] Problems Active Problems Provider Date Essential hypertension Tan Toney, Onset: 0 Social History Type Date Description Comments Sex Unknown Smokeless Tobacco Never Used Smokeless Tobacco ETOH Use Rarely Recreational Drug Use Denies Drug Use Tobacco Use Start: Unknown End: Unknown Patient is a former smoker 2 1/2 ppd x10 years quit in 1979 Allergies, Adverse Reactions, Alerts Active Allergies Reaction Severity Comments Date Tequin 07/17/2016 Gatifloxacin 02/09/2020 Medications Active Medications SIG Qnty Indications Ordering Provide r Date Aspirin 81mg Tablets DR 1 by mouth every day Unknown Jardiance 10mg Tablets daily Unknown Torsemide 10mg Tablets daily Unknown Hydrochlorothiazide 12.5mg Tablets daily Unknown Amlodipine Besylate 5mg Tablets po daily Unknown Hydrocodone-Acetaminophen 5-325mg Tablets 1 every day 14tabs Es Mei M.D. 0 Duloxetine HCL 30mg C[address] Glenn 1 every day 30caps Es Mei M.D. 0 Gabapentin 100mg Capsules tid Unknown Losartan Potassium 100mg Tablets qd Unknown Furosemide 20mg Tablets 1 zachary day Unknown Metformin HCL 1000mg Tablets 1 tab by mouth twice a day Unknown Ferrous Sulfate 325(65Fe) mg Table ts 1 by mouth twice a day Unknown Levemir 100Unit/ML Solution 25 units twice a day Unknown Novolog 100Unit/ML Solution sliding scale Unknown Carafate 1gm Tablets 1 tab by mouth twice a day Unknown Pantoprazole Sodium 40mg Tablets D R daily -- one tablet in morning 1/2 hour before breakfast Unknown Levothyroxine Sodium 25mcg Tablets daily Unknown Farxiga 5mg Tablets 1 by mouth every day Unknown Atorvastatin Calcium 20mg Tablets daily Unknown Tizanidine HCL 4mg Capsules three times a day Unknown Immunizations Description No Information Available Vital Signs Date Vital Result Comment 10/04/2020 9:48am BP Systolic 167 mmHg BP Diastolic 73 mmHg Heart Rate 83 /min Body Temperature 95.2 F Height 62 inches 5'2" Weight 175.00 lb BMI (Body Mass Index) 32.0 kg/m2 [place] Body Weight 110 lb Weight 79.380 kg BSA (Body Surface Area) 1.81 m2 09/20/2020 3:45pm BP Systolic 132 mmHg BP Diastolic 70 mmHg Height 62 inches 5'2" Weight 179.00 lb BMI (Body Mass Index) 32.7 kg/m2 [place] Body Weight 110 lb Weight 81.194 kg BSA (Body Surface Area) 1.82 m2 Results Description No Information Available Procedures Date Code Description Status 10/04/2020 43810 Office/Outpatient Established Lo w MDM 20-29 Min Completed 09/20/2020 73909 Office/Outpatient Established Lo w MDM 20-29 Min Completed 08/01/2020 43858 Office/Outpatient Established Mo d MDM 30-39 Min Completed Medical Devices Description No Information Available Encounters Type Date Location Provider Dx Diagnosis Office Visit 10/04/2020 11:00a [facility] KATELYN Steven S00.03xD Contusion of scalp, subsequent encounter Office Visit 09/20/2020 3:40p [facility] Tan Toney DO L02.811 Cutaneous abscess of head [any part, exc ept face] Office Visit 08/01/2020 3:30p [facility] Gastroenterology Pra ctantonio Zambrano MD D50.9 Iron deficiency anemia, unsp ecified K75.81 Nonalcoholic steatohepatitis (Dc) Assessments Date Code Description Provider 10/04/2020 S00.03xD Contusion of scalp, subsequent e ncounter KATELYN Conde 09/20/2020 L02.811 Cutaneous abscess of head [any p art, except face] Tan Toney, DO 08/01/2020 D50.9 Iron deficiency anemia, unspecif ied Cas Zambrano MD 08/01/2020 K75.81 Nonalcoholic steatohepatitis (Na sh) Cas Zambrano MD Plan of Treatment No Information Available Functional Status Description No Information Available Mental Status Description No Information Available Referrals Refer to Dr Reason for Referral Status Appt Date Cas Zambrano M.D. EGD Leonidas Closed 05/17/2020 [facility], Gastroenterology [address] [facility] [address] [facility] [address], [address] [place] [address] [phone]
--- OUTSIDE RECORDS SUMMARY | 2020-12-24 21:27 | CCD ---
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 Active confirmed 596332903 Problem Coronary artery disease invo lving [place] coronary artery of [place] heart without angina pectoris I25.10 Active confirmed 440954 4900176 Problem Moderate episode of recurrent major depressive disorder F33.1 Active confirmed 487827664 Problem Other cirrhosis of liver K74.69 Active confirmed 70577324 Problem Portal venous hypertension K76.6 Active confirmed 03749158 Problem Type 2 diabetes mellitus with hyperglycemia E11.65 Active confirmed 52098961 Problem Other chronic pain G89.29 Active confirmed 8 2109889 Problem Microcytic anemia D50.9 Active confirmed 23 7346570 Problem Fibromyalgia M79.7 Active confirmed 1199840 05 Problem 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 Active confirmed 6449389184303552 Problem Vitamin D deficiency E55.9 Active confirmed 29628158 Problem Type 2 diabetes mellitus with unspecified complications E11.8 Active confirmed 67693430 Problem Mixed hyperlipidemia E78.2 Active confirmed 645741527 Problem Pain in right knee M25.561 Active confirmed 90443087 Problem Myalgia, other site M79.18 Active confirmed 97908261 Problem Neuralgia of right lower extremity M79.2 Activ e confirmed 153982891354089 Problem Lumbosacral spondylosis with radiculopathy M47.27 Active confirmed 924289338 Problem Low back pain M54.5 Active confirmed 177317 009 Problem Acquired hypothyroidism E03.9 Active confirmed 860795031 Problem Intervertebral disc disorder with radiculopathy of lumbar region M51.16 Active confirmed 266029838028979 Problem Neuropathy of right hand G56.91 Active confirmed 512610304 Problem Peripheral artery disease I73.9 Active confirmed 764957687 Problem Essential hypertension I10 Active confirmed 93563645 Problem Chronic fatigue R53.82 Active confirmed 8422 9001 Problem superintendent container terminal 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 Z79.4 Active conf irmed 226347724 Problem Iron deficiency anemia, unspecified iron deficiency an emia type D50.9 Active confirmed 96734792 Problem Chronic diastolic congestive heart failure I50.32 Active confirmed 106495879 Problem Blood loss anemia D50.0 Active confirmed 41 2389073 Problem Frequent falls R29.6 Active confirmed 08215 2001 Problem Spondylosis 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 myelopathy or radiculopathy M47.816 Active confirmed 03063379 Problem Paresthesia of both hands R20.2 Active confirmed 562784199 Problem Daytime somnolence R40.0 Active confirmed 1 65438942603 Problem Lumbar radiculopathy M54.16 Active confirmed 433378314 Problem Duodenitis K29.80 Active confirmed 04514187 Problem Right leg paresthesias R20.2 Active confirmed 80383254259302017 Problem Arm paresthesia, right R20.2 Active confirmed 94227027822094670 Problem Intention tremor G25.2 Active confirmed 307 07773 ALLERGIES Allergen (clinical drug ingredient) Drug/Non Drug Allergy do cumented on EMR Reaction Allergy Type Onset Date Status gatifloxacin Gatifloxacin([facility] Code:[address]-21) Rash Drug All ergy Active Tequin Rash Non Drug Allergy Active ENCOUNTERS from 1952 to 2020-10-04 Encounter Location Date Provider Diagnosis [place] [id number] [facility] [phone] [place] [address] Sep, Es Mei Acquired hypothyroidism E03. 9 IMMUNIZATIONS [...] Language: Question Answer Notes Languages spoken: Telugu Caodaism: Question Answer Notes Caodaism 08 Amish Sexual Hx: Question Answer Notes Had sex [...] directed; electric Dx M51.16 Jul, Active Pen [place] /" as directed four times daily; Dx E11.8 [...] NSTEMI 07/08/17 with 1 ANNABEL to LAD- [facility] Medical History Echo 07/08/17 at [facility]: E F 50%, grade 2 diastolic dysfunction, [...] Surgical History Drug-eluting stent to LAD at [facility] Surgical History EGD (gastric erosions, mild gastropathy) and (diverticulosis, otherwise nml) - Dr. Zambrano 07/2017 Surgical History Cataract Surgery - Both Eyes 2016 Hospitalization History surgeries as above Hospitalization History [facility] 07/07/2017 Hospitalization History GI bleed [...] Treatment Notes Treatm ent Clinical Notes Sep, Acquired hypothyroidism (ICD-10 - E03.9) PLAN OF [...] 30 Days Sep, Next Appt Details Provider Name:Es Mei, 2020-11-08 08:00:00 AM, [address] [place] [address], , [place], [address], Insurance Providers Payer Name Payer Address Payer Phone Insured Name Patient Relati onship to Insured Coverage Start Date Coverage End Date AETNA MEDICARE AETNA [employer]URANCE [email or web address] [address] [facility] [id number] MARIANA SMITH self
--- OUTSIDE RECORDS SUMMARY | 2020-12-24 21:27 | CCD | Continuity of Care Document ---
Author Author Juju MARTINEZ PA-C Organization Unknown Address [address] [place] [address] Phone [phone] Care Team Providers Care Cyber Systems Engineer Name Role Phone Es Mei MD AUTM [phone] Gerald Clements MD AUTM [phone] Problems Active Problems Provider Date Pure hypercholesterolemia Russell Astorga, P.ASusanna Onset: 10/24/2018 Social History Type Date Description Comments Sex Unknown ETOH Use Occasionally consumes alcohol Tobacco Use Start: Unknown End: Unknown Patient is a former smoker Smoking Status Reviewed: 10/24/18 Patient is a former smoker Allergies, Adverse Reactions, Alerts Active Allergies Reaction Severity Comments Date TeQuin 08/24/2015 Medications Active Medications SIG Qnty Indications Ordering Provide r Date Gel-One 30mg/3ML Prsy Jermain knee klf/bc 09/21/20 M17.0 [place] Martinez MD 09/21/2020 Torsemide 20mg Tablets Es Mei MD Novolog Flexpen 100U nit/ML Solution Pen-Inject Es Mei MD Levothyroxine Sodium 25mcg Tablets Es Mei MD Hydrocodone-Acetaminophen 5-325mg Tablets Es Mei MD Levemir Flextouch 10 0Unit/ML Solution Pen-Inject Es Mei MD Metformin HCL ER 500mg Tablets ER 24HR Es Mei MD Torsemide 10mg Tablets Montrell Cote MD Losartan Potassium 50mg Tablets Priya Tuttle MD Gabapentin 100mg Capsules Es Mei MD Sucralfate 1gm Tablets Es Mei MD Jardiance 10mg Tablets Es Mei MD Duloxetine HCL 30mg Caps Es Gonzalez MD Amlodipine Besylate 2.5mg Tablets Es Mei MD Potassium Chloride ER 10Meq Tablets ER Es Mei MD Amlodipine Besylate 5mg Tablets Es Mei MD Hydrochlorothiazide 12.5mg Capsules Dex [place], Pentips 31G X 8 mm Es Eid MD Onetouch Delica Plus Lancets Extra Fine 33G Plus 33G Es Eid MD Cefuroxime Axetil 500mg Tablets Priya Tuttle MD Furosemide 20mg Tablets Es Mei MD Farxiga 5mg Tablets 1 by mouth every day Unknown Aspir-[address] karen nettles Unknown Levothyroxine Sodium 125mcg Tablet s 1 by mouth every day Unknown Tizanidine HCL 4mg Tablets 1 by mouth three times a day Unknown Atorvastatin Calcium 20mg Tablets Daily Unknown Humalog Kwikpen 100U nit/ML Solution Pen-Inject Three Times A Day Unknown Metformin HCL 1000mg Tablets Twice A Day Unknown Hydrocodone-Acetaminophen 10-325mg Tablets Three Times A Day Unknown Levemir Flex Touch 100Unit/ML Sopn Unknown Pantoprazole Sodium 40mg Tablets D R 1 by mouth every day Unknown Tizanidine HCL 4mg Tablets Es Mei MD Losartan Potassium 100mg Tablets 1 by mouth every day Unknown Ferrous Sulfate 325(65Fe) mg Table ts 1 by mouth every day Unknown Carvedilol 6.25mg Tablets 1 by mouth twice a day Unknown Accu-Chek Dora Plus Strips Unknown Accu-Chek Dora Plus w/Device Kit Unknown Adjustable Lancing Device Misc Unknown Alcohol Prep 70% Pads Unknown Aqualance Lancets Ul Tra Thin 30G 30G Misc Unknown Spironolactone 25mg Tablets Daryl Mejia MD Immunizations Description No Information Available Vital Signs Date Vital Result Comment 05/26/2020 3:02pm Height 63.5 inches 5'3.50" Weight 190.00 lb BMI (Body Mass Index) 33.1 kg/m2 12/12/2017 9:55am Body Temperature 96.0 F Height 63 inches 5'3" Weight 210.00 lb BMI (Body Mass Index) 37.2 kg/m2 Results Description No Information Available Procedures Date Code Description Status 09/21/2020 84567 Office/Outpatient Established Lo w MDM 20-29 Min Completed 09/21/2020 77366 X-Ray Knee Complete W/Obliques & Tunnel And/Or Standing Views Completed 09/21/202047228 Inject/Drain Joint/Bursa Major C ompleted 08/18/2020 40659 Office/Outpatient Established Mo d MDM 30-39 Min Completed 08/18/2020 25029 X-Ray Spine Lumbosacral Ap & Lat eral 2-3 Views Completed 08/18/202072686 Inject/Drain Joint/Bursa Major C ompleted 07/13/2020 55644 Office/Outpatient Established Lo w MDM 20-29 Min Completed 07/13/2020 14635 X-Ray Spine Lumbosacral Ap & Lat eral 2-3 Views Completed 05/26/2020 90849 Office/Outpatient Established Hi gh MDM 40-54 Min Completed Medical Devices Description No Information Available Encounters Type Date Location Provider Dx Diagnosis Office Visit 09/21/2020 10:30a Cindy Martinez PA-C M17.0 Bilateral primary osteoarthritis of knee Office Visit 08/18/2020 1:15p Cindy Astorga, P.A. S32.010D Wedge comprsn fx first lum vert, subs for fx w routn heal M43.16 Spondylolisthesis, lumbar re gion M17.0 Bilateral primary osteoarthr itis of knee Office Visit 07/13/2020 10:30a [place] Russell Astorga P.A. S32.010D Wedge comprsn fx first lum vert, subs for fx w routn heal M43.16 Spondylolisthesis, lumbar re gion Office Visit 05/26/2020 2:15p [place] Russell Astorga, P.A. S32.010A Wedge compression fracture of first lumbar vertebra, init M48.02 Spinal stenosis, cervical re gion Assessments Date Code Description Provider 09/21/2020 M17.0 Bilateral primary osteoarthritis of knee Donna Martinez PA-C 08/18/2020 S32.010D Wedge compression fr acture of first lumbar vertebra, subsequent encounter for fracture with routine healing Russell Astorga P.A. 08/18/2020 M43.16 Spondylolisthesis, lumbar region Russell Astorga, P.A. 08/18/2020 M17.0 Bilateral primary osteoarthritis of knee Russell Astorga, P.A. 07/13/2020 S32.010D Wedge compression fr acture of first lumbar vertebra, subsequent encounter for fracture with routine healing Russell Astorga, P.A. 07/13/2020 M43.16 Spondylolisthesis, lumbar region Russell Astorga, P.A. 05/26/2020 S32.010A Wedge compression fr acture of first lumbar vertebra, initial encounter for closed fracture Russell Astorga, P.A. 05/26/2020 M48.02 Spinal stenosis, cervical region Russell Astorga, P.A. Plan of Treatment 09/21/2020 - Donna Martinez PA-C* M17.0 Bilateral primary osteoarthritis of knee * New Medication:* Gel-One 30 mg/3ML - Jermain knee klf/bc 09/21/20 * Follow up:* 6 months for JERMAIN knees with MKM Functional Status Description No Information Available Mental Status Description No Information Available Referrals Refer to Reason for Referral Status Appt Date Russell Astorga PA 08/24/20 Gel One Jermain Knee, Se nt auth request to ins through cover my meds with ortho notes rachele. Auth was approved [id number] From 08/14/20 to 11/24/20, passed to conrado to order sw. Created [address] [place], [place] [id number] [phone] Russell Astorga PA DME PER ROMELIA AT [facility] TA [address] BACK BRACE ([id number]) IS APPROVED TO [place] Created [address] [place] [address] [phone]
--- OUTSIDE RECORDS SUMMARY | 2020-12-24 21:27 | CCD | Continuity of Care Document ---
Author Author Juju TONEY DO Organization Unknown Address [address], [address] [place] [address] Phone [phone] Care Team Providers Care Electric Locomotive Firer/Fireman Name Role Phone Es Mei M.D. AUTM [phone] Problems Active Problems Provider Date Essential hypertension Tan Toney DO Onset: 0 Social History Type Date Description [...] M.D. [address] H[address] 30[address] C[address] Elizabeth 1 every day 30caps Es Mei M.D. [...] Available Vital Signs Date Vital Result Comment 09/20/2020 3:45pm BP Systolic 132 mmHg BP Diastolic 70 mmHg Height 62 inches 5'2" Weight 179.00 lb BMI (Body Mass Index) 32.7 kg/m2 [place] Body Weight 110 lb Weight 81.194 kg BSA (Body Surface Area) 1.82 m2 08/01/2020 3:35pm BP Systolic 136 mmHg BP Diastolic 70 mmHg Height 62 inches 5'2" Weight 185.00 lb BMI (Body Mass Index) 33.8 kg/m2 [place] Body Weight 110 lb Weight 83.916 kg BSA (Body Surface Area) 1.85 m2 Results Description No Information Available Procedures Date Code Description Status 09/20/2020 48360 Office/Outpatient Established Lo w MDM 20-29 Min Completed 08/01/2020 56153 Office/Outpatient Established Mo d MDM 30-39 Min Completed Medical Devices Description No Information Available Encounters Type Date Location Provider Dx Diagnosis Office Visit 09/20/2020 3:40p [facility] Tan Toney, L02.811 Cutaneous abscess of head [any part, exc ept face] Office Visit 08/01/2020 3:30p [facility] Gastroenterology Pra [facility]ice Cas Zambrano MD D50.9 Iron deficiency anemia, unsp ecified K75.81 Nonalcoholic steatohepatitis (Dc) Assessments Date Code Description Provider 09/20/2020 L02.811 Cutaneous abscess of head [any p art, except face] Tan Toney DO 08/01/2020 D50.9 Iron deficiency anemia, unspecif ied Cas Zambrano MD 08/01/2020 K75.81 Nonalcoholic steatohepatitis (Na sh) Cas Zambrano MD Plan of Treatment Future Appointment(s):* 10/04/2020 11:00 am - KATELYN Conde at [facility] 09/20/2020 - Tan Toney, * L02.811 Cutaneous abscess of head [any part, except face]* Comments:* 71y/o female presents with an infected hematoma on her scalp. Recommendation is to shower and scrub the area at least once per day. She should also continue with the abx for the next 7 days. If this does not go away in 2 weeks then she should come back to see me. However, if the scab falls off ans she keeps it clean it should heal up nicely by then. f/u as needed. Functional Status Description No Information Available Mental Status Description No Information Available Referrals Refer to Reason for Referral Status Appt Date Cas Zambrano M.D. EGD [place] Closed 05/17/2020 [facility], Gastroenterology [address], [address] [place] [address] [phone]
--- OUTSIDE RECORDS SUMMARY | 2020-12-24 21:27 | CCD ---
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 Active confirmed 648775772 Problem Coronary artery disease invo lving [place] coronary artery of [place] heart without angina pectoris I25.10 Active confirmed 254832 9005015 Problem Moderate episode of recurrent major depressive disorder F33.1 Active confirmed 883329785 Problem Other cirrhosis of liver K74.69 Active confirmed 55032544 Problem Portal venous hypertension K76.6 Active confirmed 87176578 Problem Type 2 diabetes mellitus with hyperglycemia E11.65 Active confirmed 97647919 Problem Other chronic pain G89.29 Active confirmed 8 1446149 Problem Microcytic anemia D50.9 Active confirmed 23 1536408 Problem Fibromyalgia M79.7 Active confirmed 7925147 05 Problem 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 Active confirmed 1305747057428298 Problem Vitamin D deficiency E55.9 Active confirmed 30330467 Problem Type 2 diabetes mellitus with unspecified complications E11.8 Active confirmed 80844505 Problem Mixed hyperlipidemia E78.2 Active confirmed 238688846 Problem Pain in right knee M25.561 Active confirmed 48358175 Problem Myalgia, other site M79.18 Active confirmed 06964212 Problem Neuralgia of right lower extremity M79.2 Activ e confirmed 507821817763456 Problem Lumbosacral spondylosis with radiculopathy M47.27 Active confirmed 840082576 Problem Low back pain M54.5 Active confirmed 076944 009 Problem Acquired hypothyroidism E03.9 Active confirmed 086268219 Problem Intervertebral disc disorder with radiculopathy of lumbar region M51.16 Active confirmed 170707231787276 Problem Neuropathy of right hand G56.91 Active confirmed 744860004 Problem Peripheral artery disease I73.9 Active confirmed 192500383 Problem Essential hypertension I10 Active confirmed 88487558 Problem Chronic fatigue R53.82 Active confirmed 8422 9001 Problem terminal manager 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 Z79.4 Active conf irmed 934800832 Problem Iron deficiency anemia, unspecified iron deficiency an emia type D50.9 Active confirmed 17758207 Problem Chronic diastolic congestive heart failure I50.32 Active confirmed 865648024 Problem Blood loss anemia D50.0 Active confirmed 41 7983572 Problem Frequent falls R29.6 Active confirmed 88036 2001 Problem Spondylosis 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 myelopathy or radiculopathy M47.816 Active confirmed 30736799 Problem Paresthesia of both hands R20.2 Active confirmed 188695555 Problem Daytime somnolence R40.0 Active confirmed 1 50479456262 Problem Lumbar radiculopathy M54.16 Active confirmed 200070589 Problem Duodenitis K29.80 Active confirmed 62276293 Problem Right leg paresthesias R20.2 Active confirmed 02580186859981864 Problem Arm paresthesia, right R20.2 Active confirmed 06309266884150602 Problem Intention tremor G25.2 Active confirmed 307 71807 ALLERGIES Allergen (clinical drug ingredient) Drug/Non Drug Allergy do cumented on EMR Reaction Allergy Type Onset Date Status gatifloxacin Gatifloxacin([facility] Code:[address]-14) Rash Drug All ergy Active Tequin Rash Non Drug Allergy Active ENCOUNTERS from 1952 to 2020-10-04 Encounter Location Date Provider Diagnosis [place] [id number] [facility] [phone] [place] [address] Sep, Es Hamida Type 2 diabetes mellitus wit h unspecified complications E11.8 ; senior care 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 Z79.4 ; Essential hypertension I10 ; Acquired hypothyroidism E03.9 and Paresthesia of both hands R20.2 IMMUNIZATIONS No Information SOCIAL HISTORY Tobacco Use: Social History Observation Description Date Details (start date - stop date) Former Smoker Sex Assigned At : Social History Observation Description Sex Assigned At Unknown Education: Question Answer Notes Level of Education: High School Audit Question Answer Notes Total Score: 0 Interpretation: Alcohol Education Language: Question Answer Notes Languages spoken: Armenian Judaism: Question Answer Notes Judaism 08 Yazdanism Sexual Hx: Question Answer Notes Had sex [...] FOR REFERRAL No Information VITAL SIGNS Weight 175 lbs Sep, Height 63.5 in Sep, BMI 30.51 kg/m2 Sep, Heart Rate 72 /min Sep, Respiratory Rate 18 /min Sep, Temperature 96.5 degrees Fahrenheit Sep, Oximetry 100 Sep, Blood pressure systolic 120 mm Hg Sep, Blood pressure diastolic 60 mm Hg Sep, MEDICATIONS Medication SIG (Take, Route, Frequency, Duration) Notes Start Da te End Date Status HYDROcodone-Acetaminophen 7.5-325 MG 1 tablet as neede d Orally Daily; do not fill before 10/14 for 30 Days Sep, Act mukesh Torsemide 10 MG 1 tab Orally Daily hosp d/c 06/03/20 10 mg qd 30 Jan, 020 Active HYDROcodone-Acetaminophen 7.5-325 MG 1 tablet as [...] bed _ as directed; electric Dx M51.16 28 Jul, Active Pen [place] 5/16" as directed four times daily; Dx [...] I10 Mar, Active PROCEDURES No Information RESULTS Component Value Reference Range HEMOGLOBIN A1c Reviewed date:10/04/2020 07:35:43 Interpretation: Performing Lab:[facility], [facility] [address] [facility] [address] , ,[facility] HEMOGLOBIN A1c 11.3 ESTIMATED AVERAGE GLUCOSE 278 60-110 Basic Metabolic Profile (BMP) Reviewed date:10/04/2020 07:35:43 Interpretation: Performing Lab:[facility], [facility] [address] [facility] [address] , ,[place] [address] GLUCOSE, FASTING 310 70-100 BLOOD UREA NITROGEN 31 7-18 CREATININE FOR GFR 1.11 0.55-1.30 GLOMERULAR FILTRATION RATE 52.0 >45 SODIUM LEVEL 137 136-145 POTASSIUM SERUM 3.8 3.5-5.1 CHLORIDE LEVEL 103 98-107 CARBON DIOXIDE LEVEL 21 21-32 CALCIUM LEVEL 9.5 8.8-10.2 TSH Reviewed date:10/04/2020 07:35:43 Interpretation: Performing Lab:[facility], [facility] [address] [facility] [id number] , ,[place] [address] THYROID STIMULATING HORMONE 5.420 0.358-3.740 REASON FOR VISIT F/u diabetes, HTN MEDICAL (GENERAL) HISTORY Type Description Date Medical [...] NSTEMI 07/08/17 with 1 ANNABEL to LAD- [facility] Medical History Echo 07/08/17 at [facility]: E F 50%, grade 2 [...] Surgical History Drug-eluting stent to LAD at [facility] Surgical History EGD (gastric erosions, mild gastropathy) and (diverticulosis, otherwise nml) - Dr. Zambrano 07/2017 Surgical History Cataract Surgery - Both Eyes 2016 Hospitalization History surgeries as above Hospitalization History [facility] 07/07/2017 Hospitalization History GI bleed c acute [...] Treatment Notes Treatm ent Clinical Notes Sep, Type 2 diabetes mellitus wit h unspecified complications (ICD-10 - E11.8) Glucose elvated due to not following her diet; she is not interested in improving her diet and is no longer seeing the junior linux administrator. She understands that perisistently elevated glucose can increase risk of eye damage, kidney failure, heart attack, and stroke. Increase levemir as she is not having any hypoglycemia. Has an appointment with Dr. Cheng in 2 days. Sep, senior care 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 (ICD-10 - Z79.4 ) Sep, Essential hypertension (ICD-10 - I10) Per JNC 8 guidelines, goal BP < 140/90; is meeting goal on current regimen. Advised heart-healthy diet, sodium restriction. Sep, Acquired hypothyroidism (ICD-10 - E03.9) Due for TSH. Sep, Paresthesia of both hands (ICD-10 - R20.2) EMG done by Neuro in 07/2020 showed bilateral carpal tunnel and bilateral chronic cervical radiculopathy; she states she is not interested in carpal tunnel surgery, and in any case, she would need to get glucose under better control before she would be a good candidate for this. She understands that nerve damage could progress and become permanent. PLAN OF TREATMENT Medication Medication Name Sig [...] 1 tablet Orally Once a day Sep, Levothyroxine Sodium 50 MCG 1 tablet in [...] fill before 10/14/2020 for 30 Days Sep, Treatment Notes Assessment Notes Clinical Notes Type 2 diabetes mellitus with unspecified complications Glucose elvated due to not following her diet; she is not interested in improving her diet and is no longer seeing the junior linux administrator. She understands that perisistently elevated glucose can increase risk of eye damage, kidney failure, heart attack, and stroke. Increase levemir as she is not having any hypoglycemia.Has an appointment with Dr. Cheng in 2 days. Essential hypertension Per JNC 8 guideli flakito, goal BP < 140/90; is meeting goal on current regimen. Advised heart-healthy diet, sodium restriction. Acquired hypothyroidism Due for TSH. Paresthesia of both hands EMG done by Monse smith in 07/2020 showed bilateral carpal tunnel and bilateral chronic cervical radiculopathy; she states she is not interested in carpal tunnel surgery, and in any case, she would need to get glucose under better control before she would be a good candidate for this. She understands that nerve damage could progress and become permanent. Future Test Test Name Order Date HEMOGLOBIN A1c 20201003 Basic Metabolic Profile (BMP) 20201003 TSH 20201003 Next Appt Details 1 month Reason:F/u DM2/HTN Provider Name:Es Mei, 2020-11-08 08:00:00 AM, [address] [facility], , [place], [address], Follow Up:1 monthF/u DM2/HTN Insurance Providers Payer Name Payer Address Payer Phone Insured Name Patient Relati onship to Insured Coverage Start Date Coverage End Date AETNA MEDICARE AETNA [employer] [address] [facility] [address] MARIANA SMITH self
--- OUTSIDE RECORDS SUMMARY | 2020-12-24 21:27 | CCD ---
Author Author [facility] Organization 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 Active confirmed 108862335 Problem Moderate episode of recurrent major depressive disorder F33.1 Active confirmed 612026842 Problem Portal venous hypertension K76.6 Active confirmed 96024554 Problem Coronary artery disease invo lving [place] coronary artery of [place] heart without angina pectoris I25.10 Active confirmed 029320 7292633 Problem Other chronic pain G89.29 Active confirmed 8 6832842 Problem Other cirrhosis of liver K74.69 Active confirmed 14682280 Problem 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 Active confirmed 4083316557773759 Problem Vitamin D deficiency E55.9 Active confirmed 37183780 Problem Peripheral artery disease I73.9 Active confirmed 722845863 Problem Essential hypertension I10 Active confirmed 70243835 Problem Mixed hyperlipidemia E78.2 Active confirmed 251207744 Problem Fibromyalgia M79.7 Active confirmed 1287466 05 Problem Myalgia, other site M79.18 Active confirmed 13912520 Problem Lumbar radiculopathy M54.16 Active confirmed 286458231 Problem Lumbosacral spondylosis with radiculopathy M47.27 Active confirmed 065606092 Problem Pain in right knee M25.561 Active confirmed 30178499 Problem Intervertebral disc disorder with radiculopathy of lumbar region M51.16 Active confirmed 168144702652473 Problem Neuropathy of right hand G56.91 Active confirmed 336437423 Problem Neuralgia of right lower extremity M79.2 Activ e confirmed 529134674202384 Problem Chronic fatigue R53.82 Active confirmed 8422 9001 Problem [facility] 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 Z79.4 Active conf irmed 887615940 Problem Low back pain M54.5 Active confirmed 356010 009 Problem Acquired hypothyroidism E03.9 Active confirmed 890905072 Problem Microcytic anemia D50.9 Active confirmed 23 5977915 Problem Iron deficiency anemia, unspecified iron deficiency an emia type D50.9 Active confirmed 01850912 Problem Chronic diastolic congestive heart failure I50.32 Active confirmed 104297839 Problem Intention tremor G25.2 Active confirmed 307 44789 Problem Daytime somnolence R40.0 Active confirmed 1 99060932604 Problem Frequent falls R29.6 Active confirmed 56633 2002 Problem Type 2 diabetes mellitus with hyperglycemia E11.65 Active confirmed 30841999 Problem Spondylosis 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 myelopathy or radiculopathy M47.816 Active confirmed 62211759 Problem Blood loss anemia D50.0 Active confirmed 41 9424670 Problem Duodenitis K29.80 Active confirmed 75824858 Problem Right leg paresthesias R20.2 Active confirmed 72711759365542270 Problem Arm paresthesia, right R20.2 Active confirmed 33620173306596821 ALLERGIES Allergen (clinical drug ingredient) Drug/Non Drug Allergy do cumented on EMR Reaction Allergy Type Onset Date Status gatifloxacin Gatifloxacin([facility] Code:[address]-49) Rash Drug All ergy Active Tequin Rash Non Drug Allergy Active ENCOUNTERS from 1952 to 2020-09-30 Encounter Location Date Provider Diagnosis [address] [phone] [place] [address] Sep, Es Mei IMMUNIZATIONS No Information SOCIAL HISTORY Tobacco Use: Social History Observation Description Date Details (start date - stop date) Former Smoker Sex Assigned At : Social History Observation Description Sex Assigned At Unknown Education: Question Answer Notes Level of Education: High School Audit Question Answer Notes Total Score: 0 Interpretation: Alcohol Education Language: Question Answer Notes Languages spoken: French Yarsanism: Question Answer Notes Yarsanism 08 Roman Catholic Sexual Hx: Question Answer Notes Had sex [...] End Date Status amLODIPine Besylate 2.5 MG 1 tablet Orally Once a day for 30 day (s) Sep, Active Glucometer as directed Dx E11.65 Nov, A ctive Losartan Potassium 50 MG 1 and 1/2 tab to equal 75mg Orally Once a day Apr, Active Lancets - as directed four times daily; Dx E11.65 for 90 days Nov, Active Blood Pressure Cuff - as directed automatic arm cuff; Dx I10 Mar, Active tiZANidine HCl 4 MG 1 tablet Orally twice daily for 90 days Active Carafate 1 GM 1 tablet on an empty stomach Orally thre e times a day for 30 Days Active Pen [place] 5/16" as directed four times daily; Dx E11.8 0 Jan, Active Pantoprazole Sodium 40 MG 1 tablet Orally Once a day for 90 Active Ferrous Sulfate 325 (65 Fe) MG 1 tablet Orally bid Jan, Active Test Strips - as directed Dx E11.9; four times daily 2019 Active Jardiance 10 MG 1 tablet Orally Once a day June, Active Levothyroxine Sodium 25 MCG 1 tablet in the morning on an empty stomach Orally Once a day May, Active Blood Pressure Monitor - as directed dx: HTN Jul, Active NovoLOG 100 UNIT/ML as directed Subcutaneous wit h meals sliding scale; MDD 24 units Active Spironolactone 25 MG 1 tablet Orally bid for 90 days Active Levemir FlexTouch 100 UNIT/ML 25 units Subcutaneous BID Jan, Active Atorvastatin Calcium 20 MG 1 tablet Orally Once a day Active Cymbalta 30 MG 1 capsule Orally Once a day for 90 days Active Gabapentin 100 MG 1 capsule Orally bid for 90 days Active Aspirin Low Dose 81 MG TAKE ONE TABLET BY MOUTH EVERY DAY Active Biofreeze topically Active metFORMIN HCl ER 500 MG 2 tablet Orally Twice daily with breakfa st and dinner Active Blood Pressure Kit - as directed dx: I10 June, Active Hospital bed _ as directed; electric Dx M51.16 28 Jul, 1 Active Torsemide 10 MG 1 tab Orally Daily hosp d/c 06/03/20 10 mg qd 30 Jan, 020 Active Walker - as directed 4-wheeled walker Dx M47.27 Jan, Active HYDROcodone-Acetaminophen 7.5-325 MG 1 tablet as neede d Orally Daily for 30 Days Aug, Active PROCEDURES No Information RESULTS No Results REASON FOR VISIT BP MEDICAL (GENERAL) HISTORY Type Description Date Medical [...] NSTEMI 07/08/17 with 1 ANNABEL to LAD- [facility] Medical History Echo 07/08/17 at [facility]: E F 50%, grade 2 diastolic [...] Surgical History Drug-eluting stent to LAD at [facility] Surgical History EGD (gastric erosions, mild [...] hit her head 01/2020 Hospitalization History fell Goals Section No Information Health Concerns No Information MEDICAL EQUIPMENT No Information MENTAL STATUS No Information FUNCTIONAL STATUS No Information ASSESSMENTS No Information PLAN OF TREATMENT Medication Medication Name Sig Start Date Stop Date Hospital bed _ as directed; electric Dx M51.16 Jul, HYDROcodone-Acetaminophen 7.5-325 MG 1 tablet as neede d Orally Daily for 30 Days Aug, Spironolactone 25 MG 1 tablet Orally bid for 90 days amLODIPine Besylate 2.5 MG 1 tablet Orally Once a day for 30 day(s) Sep, Pantoprazole Sodium 40 MG 1 tablet Orally Once a day for 90 Next Appt Details Provider Name:Es Mei, 2020-10-03 08:00:00 AM, [address] [facility], , [place], [address], Insurance Providers Payer Name Payer Address Payer Phone Insured Name Patient Relati onship to Insured Coverage Start Date Coverage End Date AETNA MEDICARE AETNA [employer] INSURANCE [employer] [address] [facility] [phone] MARIANA SMITH self
--- OUTSIDE RECORDS SUMMARY | 2020-12-24 21:27 | CCD ---
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 Active confirmed 404541597 Problem Coronary artery disease invo lving [place] coronary artery of [place] heart without angina pectoris I25.10 Active confirmed 302131 7908090 Problem Moderate episode of recurrent major depressive disorder F33.1 Active confirmed 978081342 Problem Other cirrhosis of liver K74.69 Active confirmed 90328780 Problem Portal venous hypertension K76.6 Active confirmed 46771117 Problem Type 2 diabetes mellitus with hyperglycemia E11.65 Active confirmed 07646304 Problem Other chronic pain G89.29 Active confirmed 8 5506068 Problem Microcytic anemia D50.9 Active confirmed 23 3771072 Problem Fibromyalgia M79.7 Active confirmed 3449755 05 Problem 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 Active confirmed 2320935210080055 Problem Vitamin D deficiency E55.9 Active confirmed 06112267 Problem Type 2 diabetes mellitus with unspecified complications E11.8 Active confirmed 80306611 Problem Mixed hyperlipidemia E78.2 Active confirmed 692737788 Problem Pain in right knee M25.561 Active confirmed 80118826 Problem Myalgia, other site M79.18 Active confirmed 82134488 Problem Neuralgia of right lower extremity M79.2 Activ e confirmed 483537112628618 Problem Lumbosacral spondylosis with radiculopathy M47.27 Active confirmed 804803540 Problem Low back pain M54.5 Active confirmed 856884 009 Problem Acquired hypothyroidism E03.9 Active confirmed 378384052 Problem Intervertebral disc disorder with radiculopathy of lumbar region M51.16 Active confirmed 109053201770260 Problem Neuropathy of right hand G56.91 Active confirmed 207529712 Problem Peripheral artery disease I73.9 Active confirmed 158260631 Problem Essential hypertension I10 Active confirmed 65837716 Problem Chronic fatigue R53.82 Active confirmed 8422 9001 Problem 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 Z79.4 Active conf irmed 505418688 Problem Iron deficiency anemia, unspecified iron deficiency an emia type D50.9 Active confirmed 83415968 Problem Chronic diastolic congestive heart failure I50.32 Active confirmed 673014680 Problem Blood loss anemia D50.0 Active confirmed 41 5728106 Problem Frequent falls R29.6 Active confirmed 68964 2001 Problem Spondylosis 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 myelopathy or radiculopathy M47.816 Active confirmed 22318338 Problem Paresthesia of both hands R20.2 Active confirmed 392928802 Problem Daytime somnolence R40.0 Active confirmed 1 56228438355 Problem Lumbar radiculopathy M54.16 Active confirmed 179153573 Problem Duodenitis K29.80 Active confirmed 77770765 Problem Right leg paresthesias R20.2 Active confirmed 66257144005500563 Problem Arm paresthesia, right R20.2 Active confirmed 26890488878263310 Problem Intention tremor G25.2 Active confirmed 307 21298 ALLERGIES Allergen (clinical drug ingredient) Drug/Non Drug Allergy do cumented on EMR Reaction Allergy Type Onset Date Status gatifloxacin Gatifloxacin([facility] Code:[address]-31) Rash Drug All ergy Active Tequin Rash Non Drug Allergy Active ENCOUNTERS from 1950 to 2020-10-03 Encounter Location Date Provider Diagnosis [facility] [address] [facility] [phone] [place] [address] Sep, Es [place] Other chronic pain G89.29 IMMUNIZATIONS No Information SOCIAL HISTORY Tobacco Use: Social History Observation Description Date Details (start date - stop date) Former Smoker Sex Assigned At : Social History Observation Description Sex Assigned At Unknown Education: Question Answer Notes Level of Education: High School Audit Question Answer Notes Total Score: 0 Interpretation: Alcohol Education Language: Question Answer Notes Languages spoken: Serbian Scientology: Question Answer Notes Scientology 08 Gnosticist Sexual Hx: Question Answer Notes Had sex [...] electric Dx M51.16 28 Jul, Active Pen [place] 5/16" as directed four times daily; Dx E11.8 0 Jan, Active Atorvastatin Calcium 20 MG 1 tablet Orally Once a day Active Pantoprazole Sodium 40 MG 1 tablet Orally Once a day for 90 Active NovoLOG 100 UNIT/ML as directed 6 units with meals Subcutaneous mdd 24 units Active Losartan Potassium 50 MG 1 and 1/2 tab to equal 75mg Orally Once a day Apr, Active Cymbalta 30 MG 1 capsule Orally Once a day for 90 days Active metFORMIN HCl ER 500 MG 2 tablet Orally Twice daily with breakfa st and dinner Active Lancets - as directed four times daily; Dx E11.65 for 90 days Nov, Active Levemir FlexTouch 100 UNIT/ML 28 units Subcutaneous BID Jan, Active Ferrous Sulfate 325 (65 Fe) MG 1 tablet Orally bid Jan, Active Aspirin Low Dose 81 MG TAKE ONE TABLET BY MOUTH EVERY DAY Active Test Strips - as directed Dx E11.9; four times daily 2019 Active Carafate 1 GM 1 tablet on an empty stomach Orally thre e times a day for 30 Days Active Glucometer as directed Dx E11.65 Nov, A ctive Gabapentin 100 MG 1 capsule Orally bid for 90 days Active Jardiance 10 MG 1 tablet Orally Once a day June, Active Biofreeze topically Active Levothyroxine Sodium 25 MCG 1 tablet in the morning on an empty stomach Orally Once a day May, Active tiZANidine HCl 4 MG TAKE ONE TABLET BY MOUTH TWICE A DAY for 90 Active Blood Pressure Cuff - as directed automatic arm cuff; Dx I10 Mar, Active PROCEDURES No Information RESULTS No Results REASON FOR VISIT hydrocodone MEDICAL (GENERAL) HISTORY Type Description Date Medical [...] ANNABEL to LAD- [facility] Medical History Echo 07/08/[address] [facility]: E F 50%, grade 2 diastolic [...] Surgical History Drug-eluting stent to LAD at [facility] Surgical History EGD (gastric erosions, mild gastropathy) and (diverticulosis, otherwise nml) - Dr. Zambrano 07/2017 Surgical History Cataract Surgery - Both Eyes 2016 Hospitalization History surgeries as above Hospitalization History [facility] 07/07/2017 Hospitalization History GI bleed c acute blood loss anemia and ASAF I (cr to 1.5) c [place] 3.7-anne hgb 8.5 sp 2u PRBCs to 10 at [facility], EGD/colon c mild gastric HTN c few [...] Treatment Notes Treatm ent Clinical Notes Sep, Other chronic pain (ICD-10 - G89.29) PLAN OF TREATMENT Medication Medication Name Sig Start Date Stop Date Jardiance 10 MG 1 tablet Orally Once a day June, Levothyroxine Sodium 25 MCG 1 tablet in the morning on an empty stomach Orally Once a day May, Losartan Potassium 50 MG 1 and 1/2 tab to equal 75mg Orally Once a day Apr, Torsemide 10 MG 1 tab Orally Daily Jan, Levemir FlexTouch 100 UNIT/ML 28 units Subcutaneous BID Jan, Spironolactone 25 MG 1 tablet Orally bid amLODIPine Besylate 2.5 MG 1 tablet Orally Once a day Sep, 21 metFORMIN HCl ER 500 MG 2 tablet Orally Twice daily with breakfa st and dinner NovoLOG 100 UNIT/ML as directed 6 units with meals Subcutaneous mdd 24 units HYDROcodone-Acetaminophen 7.5-325 MG 1 tablet as neede d Orally Daily; do not fill before 10/14 for 30 Days Sep, HYDROcodone-Acetaminophen 7.5-325 MG 1 tablet as neede d Orally Daily; MDD#1, do not fill before 10/14/2020 for 30 Days Sep, Next Appt Details Provider Name:Es Mei, 2020-11-08 08:00:00 AM, [address], , [place], [address], Insurance Providers Payer Name Payer Address Payer Phone Insured Name Patient Relati onship to Insured Coverage Start Date Coverage End Date AETNA MEDICARE AETNA [employer] [address] [facility] [phone] MARIANA SMITH self
--- OUTSIDE RECORDS SUMMARY | 2020-12-24 21:27 | CCD ---
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 Active confirmed 762615171 Problem Moderate episode of recurrent major depressive disorder F33.1 Active confirmed 799694792 Problem Portal venous hypertension K76.6 Active confirmed 70767925 Problem Coronary artery disease invo lving [place] coronary artery of [place] heart without angina pectoris I25.10 Active confirmed 821530 4335835 Problem Other chronic pain G89.29 Active confirmed 8 0192221 Problem Other cirrhosis of liver K74.69 Active confirmed 34722174 Problem 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 Active confirmed 5998926960116261 Problem Vitamin D deficiency E55.9 Active confirmed 47811067 Problem Peripheral artery disease I73.9 Active confirmed 108352722 Problem Essential hypertension I10 Active confirmed 88463509 Problem Mixed hyperlipidemia E78.2 Active confirmed 845310146 Problem Fibromyalgia M79.7 Active confirmed 9757019 05 Problem Myalgia, other site M79.18 Active confirmed 96857576 Problem Lumbar radiculopathy M54.16 Active confirmed 141881214 Problem Lumbosacral spondylosis with radiculopathy M47.27 Active confirmed 903061173 Problem Pain in right knee M25.561 Active confirmed 73829874 Problem Intervertebral disc disorder with radiculopathy of lumbar region M51.16 Active confirmed 534830323491371 Problem Neuropathy of right hand G56.91 Active confirmed 865237889 Problem Neuralgia of right lower extremity M79.2 Activ e confirmed 199163853127962 Problem Chronic fatigue R53.82 Active confirmed 8422 9001 Problem senior living 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 Z79.4 Active conf irmed 172737592 Problem Low back pain M54.5 Active confirmed 281124 009 Problem Acquired hypothyroidism E03.9 Active confirmed 717055273 Problem Microcytic anemia D50.9 Active confirmed 23 3046307 Problem Iron deficiency anemia, unspecified iron deficiency an emia type D50.9 Active confirmed 78743448 Problem Chronic diastolic congestive heart failure I50.32 Active confirmed 750916565 Problem Intention tremor G25.2 Active confirmed 307 85745 Problem Daytime somnolence R40.0 Active confirmed 1 55964061311 Problem Frequent falls R29.6 Active confirmed 40484 2002 Problem Type 2 diabetes mellitus with hyperglycemia E11.65 Active confirmed 27678781 Problem Spondylosis 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 myelopathy or radiculopathy M47.816 Active confirmed 02970736 Problem Blood loss anemia D50.0 Active confirmed 41 3416119 Problem Duodenitis K29.80 Active confirmed 87587461 Problem Right leg paresthesias R20.2 Active confirmed 18487996885002809 Problem Arm paresthesia, right R20.2 Active confirmed 26645699698420934 ALLERGIES Allergen (clinical drug ingredient) Drug/Non Drug Allergy do cumented on EMR Reaction Allergy Type Onset Date Status gatifloxacin Gatifloxacin([facility] Code:[address]-29) Rash Drug All ergy Active Tequin Rash Non Drug Allergy Active ENCOUNTERS from 1950 to 2020-09-29 Encounter Location Date Provider Diagnosis [address] [phone] [place] [address] Sep, Es Mei IMMUNIZATIONS No Information SOCIAL HISTORY Tobacco Use: Social History Observation Description Date Details (start date - stop date) Former Smoker Sex Assigned At : Social History Observation Description Sex Assigned At Unknown Education: Question Answer Notes Level of Education: High School Audit Question Answer Notes Total Score: 0 Interpretation: Alcohol Education Language: Question Answer Notes Languages spoken: Romansh Anabaptism: Question Answer Notes Anabaptism 08 Episcopal Sexual Hx: Question Answer Notes Had sex [...] Notes Start Da te End Date Status Carafate 1 GM 1 tablet on an empty stomach Orally thre e times a day for 30 Days Active Pen [place] 07/10" as directed four times daily; Dx E11.8 0 Jan, Active Losartan Potassium 50 MG 1 and 1/2 tab to equal 75mg Orally Once a day Apr, Active Glucometer as directed Dx E11.65 Nov, A ctive Ferrous Sulfate 325 (65 Fe) MG 1 tablet Orally bid Jan, Active Test Strips - as directed Dx E11.9; four times daily 2019 Active Blood Pressure Cuff - as directed automatic arm cuff; Dx I10 Mar, Active tiZANidine HCl 4 MG 1 tablet Orally twice daily for 90 days Active Cymbalta 30 MG 1 capsule Orally Once a day for 90 days Active Pantoprazole Sodium 40 MG 1 tablet Orally Once a day for 90 Active Jardiance 10 MG 1 tablet Orally Once a day June, Active Levothyroxine Sodium 25 MCG 1 tablet in the morning on an empty stomach Orally Once a day May, Active Blood Pressure Monitor - as directed dx: HTN Jul, Active NovoLOG 100 UNIT/ML as directed Subcutaneous wit h meals sliding scale; MDD 24 units Active Gabapentin 100 MG 1 capsule Orally bid for 90 days Active Levemir FlexTouch 100 UNIT/ML 25 units Subcutaneous BID Jan, Active Atorvastatin Calcium 20 MG 1 tablet Orally Once a day Active Spironolactone 25 MG 1 tablet Orally bid for 90 days Active Lancets - as directed four times daily; Dx E11.65 for 90 days Nov, Active Aspirin Low Dose 81 MG TAKE ONE TABLET BY MOUTH EVERY DAY Active Biofreeze topically Active metFORMIN HCl ER 500 MG 2 tablet Orally Twice daily with breakfa st and dinner Active Blood Pressure Kit - as directed dx: I10 June, Active Hospital bed _ as directed; electric Dx M51.16 Jul, 1 Active Torsemide 10 MG 1 tab Orally Daily hosp d/c 06/03/20 10 mg qd 30 Dec, 020 Active Walker - as directed 4-wheeled walker Dx M47.27 Jan, Active HYDROcodone-Acetaminophen 7.5-325 MG 1 tablet as neede d Orally Daily for 30 Days Aug, Active PROCEDURES No Information RESULTS No Results REASON FOR VISIT parameters MEDICAL (GENERAL) HISTORY Type Description Date Medical [...] NSTEMI 07/08/17 with 1 ANNABEL to LAD- [facility] Medical History Echo 07/08/17 at [facility]: E F 50%, grade 2 [...] Surgical History Drug-eluting stent to LAD at [facility] Surgical History EGD (gastric erosions, mild gastropathy) and (diverticulosis, otherwise nml) - Dr. Zambrano 07/2017 Surgical History Cataract Surgery - Both Eyes 2016 Hospitalization History surgeries as above Hospitalization History [facility] 07/07/2017 Hospitalization History GI bleed c [...] d Orally Daily for 30 Days Aug, Pantoprazole Sodium 40 MG 1 tablet Orally Once a day for 90 Spironolactone 25 MG 1 tablet Orally bid for 90 days Next Appt Details Provider Name:Es Mei, 2020-10-03 08:00:00 AM, [address] [facility], , [place], [address], Insurance Providers Payer Name Payer Address Payer Phone Insured Name Patient Relati onship to Insured Coverage Start Date Coverage End Date AETNA MEDICARE AETNA [employer] [address] [facility] [phone] MARIANA SMITH self
--- OUTSIDE RECORDS SUMMARY | 2020-12-24 21:29 | CCD ---
Author Author [facility] Organization [facility] Address Unknown Phone Unavailable Support Name Relationship Address Phone RE Next Of Kin Unknown Unavailable Junior Gallo Next Of Kin Unknown Unavailable MARIO ALBERTO MILLER Next Of Kin [address] [place] [address] LEDGER, (CAPPY) CAPIT[place]A Next Of Kin [address] [place] [address] LEDGER, CAPPY Next Of Kin [address] [address] DISABILITY Next Of Kin UN UN, UN UN MARIANO FLEMING Next Of Kin [address] [facility] [address] [place] [address] NELLIE FLEMING Next Of Kin [address] [place] [address] NELLIE ANDERS Next Of Kin [address] [place] [address] Kimberly Villanueva Next Of Kin [address] [place] [phone] Kristopher Barrow MD Next Of Kin [address] [place] [address] JUNIOR BELTRE Next Of Kin [address] [place] [id number] [place] [address] DALE WALTERS Next Of Kin [address] [facility] [address] [place] [address] [employer] Next Of Kin [address] [place] [address] [place] [address] Gilson SMITH JR Next Of Kin [address] [place] [address] [employer] [place] [address] [facility] NEWS TOO Next [place] [address] DEEP FLEMING Next Of Kin [address] [place] [address] UE Next Of Kin Unknown Unavailable SATISH [place] [address] Unavailable MARTHA FLEMING Next Of Kin [address] [place] [address] ANGELA KINGSLEY Next Of Kin Unknown Mario Alberto Fleming Next Of Kin Unknown DISABLED Next Of Kin Unknown Unavailable DALE [place] [address] JUNIOR MILLER Next Of Kin [address] [place] [address] MARIANA SMITH Next Of Kin [address] [facility] [address] [place] [address] MARIO ALBERTO MILLER ECON [address] [place] [address] Unavailable LedAlvaro seymour (Cappy) ECON Unknown Unavai lable Mario Alberto Fleming ECON Unknown [phone] Care Team Providers Care Pyrotechnist Name Role Phone Catalino Dunn Cara PATIENT SITTER Unavailable Unavailable Kocan, J Cara PATIENT SITTER Unavailable Unavailable Kocan, J Cara PATIENT SITTER Unavailable Unavailable Kocan, J Cara PATIENT SITTER Unavailable Unavailable Kocan, J Cara PATIENT SITTER Unavailable Unavailable Kocan, J Cara PATIENT SITTER Unavailable Unavailable Kocan, J Cara PATIENT SITTER Unavailable Unavailable Kocan, J Cara PATIENT SITTER Unavailable Unavailable Kocan, J Cara PATIENT SITTER Unavailable Unavailable Kocan, J Cara PATIENT SITTER Unavailable Unavailable Kocan, J Cara PATIENT SITTER Unavailable Unavailable Kocan, J Cara PATIENT SITTER Unavailable Unavailable Kocan, J Cara PATIENT SITTER Unavailable Unavailable SYSTEM IN, NOT IN PROVIDER Unavailable Unavailable REINDL, AYDIN WELLS Unavailable Unavailable REINDL, AYDIN WELLS Unavailable Unavailable REINDL, AYDIN WELLS Unavailable Unavailable REINDL, AYDIN WELLS Unavailable Unavailable REINDL, AYDIN WELLS Unavailable Unavailable REINDL, AYDIN WELLS Unavailable Unavailable REINDL, AYDIN WELLS Unavailable Unavailable REINDL, AYDIN WELLS Unavailable Unavailable REINDL, AYDIN WELLS Unavailable Unavailable REINDL, AYDIN WELLS Unavailable Unavailable REINDL, AYDIN WELLS Unavailable Unavailable REINDL, AYDIN WELLS Unavailable Unavailable REINDL, AYDIN WELLS Unavailable Unavailable REINDL, AYDIN WELLS Unavailable Unavailable REINDL, AYDIN WELLS Unavailable Unavailable REINDL, AYDIN WELLS Unavailable Unavailable REINDL, AYDIN WELLS Unavailable Unavailable REINDL, AYDIN WELLS Unavailable Unavailable REINDL, AYDIN WELLS Unavailable Unavailable REINDL, AYDIN WELLS Unavailable Unavailable REINDL, AYDIN WELLS Unavailable Unavailable REINDL, AYDIN WELLS Unavailable Unavailable REINDL, AYDIN WELLS Unavailable Unavailable REINDL, AYDIN WELLS Unavailable Unavailable REINDL, AYDIN WELLS Unavailable Unavailable REINDL, AYDIN WELLS Unavailable Unavailable REINDL, AYDIN WELLS Unavailable Unavailable REINDL, AYDIN WELLS Unavailable Unavailable REINDL, AYDIN WELLS Unavailable Unavailable REINDL, AYDIN WELLS Unavailable Unavailable REINDL, AYDIN WELLS Unavailable Unavailable REINDL, AYDIN WELLS Unavailable Unavailable REINDL, AYDIN WELLS Unavailable Unavailable REINDL, AYDIN WELLS Unavailable Unavailable REINDL, AYDIN WELLS Unavailable Unavailable REINDL, AYDIN WELLS Unavailable Unavailable REINDL, AYDIN WELLS Unavailable Unavailable REINDL, AYDIN WELLS Unavailable Unavailable REINDL, AYDIN WELLS Unavailable Unavailable REINDL, AYDIN WELLS Unavailable Unavailable REINDL, AYDIN WELLS Unavailable Unavailable REINDL, AYDIN WELLS Unavailable Unavailable Fish, Johnna Thompson [facility], PA-C Unavailable Unavailabl e Fish, Johnna Thompson [facility], PA-C Unavailable Unavailabl e Fish, Johnna Thompson [facility], PA-C Unavailable Unavailabl e Fish, Johnna Thompson [facility], PA-C Unavailable Unavailabl e Fish, Johnna Thompson [facility], PA-C Unavailable Unavailabl e Fish, Johnna Thompson [facility], PA-C Unavailable Unavailabl e Fish, Johnna Donna [facility], PA-C Unavailable Unavailabl e Fish, Johnna Thompson [facility], PA-C Unavailable Unavailabl e Fish, Johnna Thompson [facility], PA-C Unavailable Unavailabl e Fish, Johnna Thompson [facility], PA-C Unavailable Unavailabl e Fish, Johnna Thompson [facility], PA-C Unavailable Unavailabl e Fish, Johnna Thompson [facility], PA-C Unavailable Unavailabl e Fish, Johnna Thompson [facility], PA-C Unavailable Unavailabl e Fish, [facility], [facility]-C Unavailable Unavailabl e Fish, [facility], PA-C Unavailable Unavailabl e Fish, [facility], PA-C Unavailable Unavailabl e Fish, [facility], PA-C Unavailable Unavailabl e Fish, [facility], PA-C Unavailable Unavailabl e Fish, [facility], PA-C Unavailable Unavailabl e Fish, [facility], PA-C Unavailable Unavailabl e Fish, [facility], PA-C Unavailable Unavailabl e Fish, [facility], PA-C Unavailable Unavailabl e Fish, [facility], PA-C Unavailable Unavailabl e Fish, [facility], PA-C Unavailable Unavailabl e Fish, [facility], PA-C Unavailable Unavailabl e Fish, [facility], PA-C Unavailable Unavailabl e Fish, [facility], PA-C Unavailable Unavailabl e Fish, [facility], PA-C Unavailable Unavailabl e Fish, [facility], PA-C Unavailable Unavailabl e Fish, [facility], PA-C Unavailable Unavailabl e Fish, [facility], PA-C Unavailable Unavailabl e Fish, [facility], PA-C Unavailable Unavailabl e Fish, [facility], PA-C Unavailable Unavailabl e Fish, [facility], PA-C Unavailable Unavailabl e Fish, [facility], PA-C Unavailable Unavailabl e Fish, [facility], PA-C Unavailable Unavailabl e NILAM KEARNS MD Unavailable Unavailable NILAM KEANRS MD Unavailable Unavailable NILAM KEARNS MD Unavailable Unavailable NILAM KEARNS MD Unavailable Unavailable NILAM KEARNS MD Unavailable Unavailable NILAM KEARNS MD Unavailable Unavailable NILAM KEARNS MD Unavailable Unavailable NILAM KEARNS MD Unavailable Unavailable NILAM KEARNS MD Unavailable Unavailable NILAM KEARNS MD Unavailable Unavailable NILAM KEARNS MD Unavailable Unavailable NILAM KEARNS MD Unavailable Unavailable NILAM KEARNS MD Unavailable Unavailable NILAM KEARNS MD Unavailable Unavailable NILAM KEARNS MD Unavailable Unavailable NILAM KEARNS MD Unavailable Unavailable NILAM KEARNS MD Unavailable Unavailable NILAM KEARNS MD Unavailable Unavailable URMILA, NLIAM WELLS Unavailable Unavailable URMILA, NILAM WELLS Unavailable Unavailable URMILA, NILAM WELLS Unavailable Unavailable URMILA, NILAM WELLS Unavailable Unavailable URMILA, NILAM WELLS Unavailable Unavailable URMILA, NILAM WELLS Unavailable Unavailable URMILA, NILAM WELLS Unavailable Unavailable URMILA, NILAM WELLS Unavailable Unavailable URMILA, NILAM WELLS Unavailable Unavailable URMILA, NILAM WELLS Unavailable Unavailable URMILA, NILAM WELLS Unavailable Unavailable URMILA, NILAM WELLS Unavailable Unavailable URMILA, NILAM WELLS Unavailable Unavailable URMILA, NILAM WELLS Unavailable Unavailable URMILA, NILAM WELLS Unavailable Unavailable URMILA, NILAM WELLS Unavailable Unavailable URMILA, NILAM WELLS Unavailable Unavailable URMILA, NILAM WELLS Unavailable Unavailable URMILA, NILMA WELLS Unavailable Unavailable URMILA, NILAM WELLS Unavailable Unavailable URMILA, NILAM WELLS Unavailable Unavailable URMILA, NILAM WELLS Unavailable Unavailable URMILA, NILAM WELLS Unavailable Unavailable URMILA, NILAM WELLS Unavailable Unavailable URMILA, NILAM WELLS Unavailable Unavailable URMILA, NILAM WELLS Unavailable Unavailable URMILA, NILAM WELLS Unavailable Unavailable URMILA, NILAM WELLS Unavailable Unavailable URMILA, NILAM WELLS Unavailable Unavailable URMILA, NILAM WELLS Unavailable Unavailable URMILA, NILAM WELLS Unavailable Unavailable URMILA, NILAM WELLS Unavailable Unavailable URMILA, NILAM WELLS Unavailable Unavailable URMILA, NILAM WELLS Unavailable Unavailable URMILA, NILAM WELLS Unavailable Unavailable URMILA, NILAM WELLS Unavailable Unavailable URMILA, NILAM WELLS Unavailable Unavailable LETTIERE, A KASSY PA Unavailable Unavailable LETTIERE, A KASSY PA Unavailable Unavailable LETTIERE, A KASSY PA Unavailable Unavailable LETTIERE, A KASSY PA Unavailable Unavailable LETTIERE, A KASSY PA Unavailable Unavailable LETTIERE, A KASSY PA Unavailable Unavailable LETTIERE, A KASSY PA Unavailable Unavailable LETTIERE, A KASSY PA Unavailable Unavailable LETTIERE, A KASSY PA Unavailable Unavailable LETTIERE, A KASSY PA Unavailable Unavailable LETTIERE, A KASSY PA Unavailable Unavailable LETTIERE, A KASSY PA Unavailable Unavailable LETTIERE, A KASSY PA Unavailable Unavailable LETTIERE, A KASSY PA Unavailable Unavailable LETTIERE, A KASSY PA Unavailable Unavailable LETTIERE, A KASSY PA Unavailable Unavailable LETTIERE, A KASSY PA Unavailable Unavailable LETTIERE, A KASSY PA Unavailable Unavailable LETTIERE, A KASSY PA Unavailable Unavailable LETTIERE, A KASSY PA Unavailable Unavailable LETTIERE, A KASSY PA Unavailable Unavailable LETTIERE, A KASSY PA Unavailable Unavailable LETTIERE, A KASSY PA Unavailable Unavailable LETTIERE, A KASSY PA Unavailable Unavailable LETTIERE, A KASSY PA Unavailable Unavailable LETTIERE, A KASSY PA Unavailable Unavailable LETTIERE, A KASSY PA Unavailable Unavailable LETTIERE, A KASSY PA Unavailable Unavailable LETTIERE, A KASSY PA Unavailable Unavailable LETTIERE, A KASSY PA Unavailable Unavailable LETTIERE, A KASSY PA Unavailable Unavailable MCELHERAN, KASSY PA Unavailable Unavailable MCELHERAN, KASSY PA Unavailable Unavailable MCELHERAN, KASSY PA Unavailable Unavailable MCELHERAN, KASSY PA Unavailable Unavailable MCELHERAN, KASSY PA Unavailable Unavailable MCELHERAN, KASSY PA Unavailable Unavailable MCELHERAN, KASSY PA Unavailable Unavailable MCELHERAN, KASSY PA Unavailable Unavailable MCELHERAN, KASSY PA Unavailable Unavailable MCELHERAN, KASSY PA Unavailable Unavailable MCELHERAN, KASSY PA Unavailable Unavailable MCELHERAN, KASSY PA Unavailable Unavailable MCELHERAN, KASSY PA Unavailable Unavailable MCELHERAN, KASSY PA Unavailable Unavailable MCELHERAN, KASSY PA Unavailable Unavailable MCELHERAN, KASSY PA Unavailable Unavailable MCELHERAN, KASSY PA Unavailable Unavailable MCELHERAN, KASSY PA Unavailable Unavailable MCELHERAN, KASSY PA Unavailable Unavailable MCELHERAN, KASSY PA Unavailable Unavailable MCELHERAN, KASSY PA Unavailable Unavailable MCELHERAN, KASSY PA Unavailable Unavailable MCELHERAN, KASSY PA Unavailable Unavailable MCELHERAN, KASSY PA Unavailable Unavailable MCELHERAN, KASSY PA Unavailable Unavailable MCELHERAN, KASSY PA Unavailable Unavailable MCELHERAN, KASSY PA Unavailable Unavailable MCELHERAN, KASSY PA Unavailable Unavailable MCELHERAN, KASSY PA Unavailable Unavailable Zakia Conti MD Unavailable Unavailable Zakia Conti MD Unavailable Unavailable Zakia Conti MD Unavailable Unavailable Zakia Conti MD Unavailable Unavailable Zakia Conti MD Unavailable Unavailable Zakia Conti MD Unavailable Unavailable Zakia Conti MD Unavailable Unavailable Zakia Conti MD Unavailable Unavailable Zakia Conti MD Unavailable Unavailable Zakia Conti MD Unavailable Unavailable Zakia Conti MD Unavailable Unavailable Zakia Conti MD Unavailable Unavailable Zakia Conti MD Unavailable Unavailable Zakia Conti MD Unavailable Unavailable Zakia Conti MD Unavailable Unavailable Zakia Conti MD Unavailable Unavailable Zaika Conti MD Unavailable Unavailable Zakia Conti MD Unavailable Unavailable Zakia Conti MD Unavailable Unavailable Zakia Conti MD Unavailable Unavailable Zakia Conti MD Unavailable Unavailable Zakia Conti MD Unavailable Unavailable Zakia Conti MD Unavailable Unavailable Zakia Conti MD Unavailable Unavailable Zakia Conti MD Unavailable Unavailable Zakia Conti MD Unavailable Unavailable Zakia Conti MD Unavailable Unavailable Zakia Conti MD Unavailable Unavailable Ali, Zakia MD Unavailable Unavailable Ali, Zakia MD Unavailable Unavailable Ali, Zakia MD Unavailable Unavailable Ali, Zakia MD Unavailable Unavailable Ali, Zakia MD Unavailable Unavailable Ali, Zakia MD Unavailable Unavailable Ali, Zakia MD Unavailable Unavailable Ali, Zakia MD Unavailable Unavailable Ali, Zakia MD Unavailable Unavailable Ali, Zakia MD Unavailable Unavailable Ali, Zakia MD Unavailable Unavailable Ali, Zakia MD Unavailable Unavailable Ali, Zakia MD Unavailable Unavailable Ali, Zakia MD Unavailable Unavailable Ali, Zakia MD Unavailable Unavailable Ali, Zakia MD Unavailable Unavailable Ali, Zakia MD Unavailable Unavailable Ali, Zakia MD Unavailable Unavailable Ali, Zakia MD Unavailable Unavailable Ali, Zakia MD Unavailable Unavailable Ali, Zakia MD Unavailable Unavailable Ali, Zakia MD Unavailable Unavailable Ali, Zakia MD Unavailable Unavailable BRYDEN, A ANGY DO Unavailable Unavailable BRYDEN, A ANGY DO Unavailable Unavailable BRYDEN, A ANGY DO Unavailable Unavailable BRYDEN, A ANGY DO Unavailable Unavailable BRYDEN, A ANGY DO Unavailable Unavailable BRYDEN, A ANGY DO Unavailable Unavailable BRYDEN, A ANGY DO Unavailable Unavailable BRYDEN, A ANGY DO Unavailable Unavailable BRYDEN, A ANGY DO Unavailable Unavailable BRYDEN, A ANGY DO Unavailable Unavailable BRYDEN, A ANGY DO Unavailable Unavailable BRYDEN, A ANGY DO Unavailable Unavailable BRYDEN, A ANGY DO Unavailable Unavailable BRYDEN, A ANGY DO Unavailable Unavailable BRYDEN, A ANGY DO Unavailable Unavailable BRYDEN, A ANGY DO Unavailable Unavailable BRYDEN, A ANGY DO Unavailable Unavailable BRYDEN, A ANGY DO Unavailable Unavailable BRYDEN, A ANGY DO Unavailable Unavailable BRYDEN, A ANGY DO Unavailable Unavailable BRYDEN, A ANGY DO Unavailable Unavailable BRYDEN, A ANGY DO Unavailable Unavailable BRYDEN, A ANGY DO Unavailable Unavailable BRYDEN, A ANGY DO Unavailable Unavailable BRYDEN, A ANGY DO Unavailable Unavailable BRYDEN, A ANGY DO Unavailable Unavailable BRYDEN, A ANGY DO Unavailable Unavailable BRYDEN, A ANGY DO Unavailable Unavailable BRYDEN, A ANGY DO Unavailable Unavailable Delgado, L Selma RPA Unavailable Unavailable Delgado, L Selma RPA Unavailable Unavailable Delgado, L Selma RPA Unavailable Unavailable Delgado, L Selma RPA Unavailable Unavailable Delgado, L Selma RPA Unavailable Unavailable Delgado, L Selma RPA Unavailable Unavailable Delgado, L Selma RPA Unavailable Unavailable Delgado, L Selma RPA Unavailable Unavailable Delgado, L Selma RPA Unavailable Unavailable Delgado, L Selma RPA Unavailable Unavailable Delgado, L Selma RPA Unavailable Unavailable Delgado, L Selma RPA Unavailable Unavailable Delgado, L Selma RPA Unavailable Unavailable Delgado, L Selma RPA Unavailable Unavailable Delgado, L Selma RPA Unavailable Unavailable Delgado, L Selma RPA Unavailable Unavailable Delgado, L Selma RPA Unavailable Unavailable Delgado, L Selma RPA Unavailable Unavailable Delgado, L Selma RPA Unavailable Unavailable Delgado, L Selma RPA Unavailable Unavailable Delgado, L Selma RPA Unavailable Unavailable Delgado, L Selma RPA Unavailable Unavailable Delgado, L Selma RPA Unavailable Unavailable Delgado, L Selma RPA Unavailable Unavailable Delgado, L Selma RPA Unavailable Unavailable Delgado, L Selma RPA Unavailable Unavailable Delgado, L Selma RPA Unavailable Unavailable Delgado, L Selma RPA Unavailable Unavailable Delgado, L Selma RPA Unavailable Unavailable Delgado, L Selma RPA Unavailable Unavailable Delgado, L Selma RPA Unavailable Unavailable Delgado, L Selma RPA Unavailable Unavailable DAYO, A SILVERIO DO Unavailable Unavailable DAYO, A SILVERIO DO Unavailable Unavailable DAYO, A SILVERIO DO Unavailable Unavailable DAYO, A SILVERIO DO Unavailable Unavailable DAYO, A SILVERIO DO Unavailable Unavailable DAYO, A SILVERIO DO Unavailable Unavailable DAYO, A SILVERIO DO Unavailable Unavailable DAYO, A SILVERIO DO Unavailable Unavailable DAYO, A SILVERIO DO Unavailable Unavailable DAYO, A SILVERIO DO Unavailable Unavailable DAYO, A SILVERIO DO Unavailable Unavailable DAYO, A SILVERIO DO Unavailable Unavailable DAYO, A SILVERIO DO Unavailable Unavailable DAYO, A SILVERIO DO Unavailable Unavailable DAYO, A SILVERIO DO Unavailable Unavailable DAYO, A SILVERIO DO Unavailable Unavailable DAYO, A SILVERIO DO Unavailable Unavailable DAYO, A SILVERIO DO Unavailable Unavailable DAYO, A SILVERIO DO Unavailable Unavailable DAYO, A SILVERIO DO Unavailable Unavailable DAYO, A SILVERIO DO Unavailable Unavailable DAYO, A SILVERIO DO Unavailable Unavailable Re-disclosure Warning The records that you are about to access may contain information from federally-assisted alcohol or drug abuse programs. If such information is present, then the following federally mandated warning applies: This information has been disclosed to you from records protected by federal confidentiality rules (42 CFR part 2). The federal rules prohibit you from making any further disclosure of this information unless further disclosure is expressly permitted by the written consent of the person to whom it pertains or as otherwise permitted by 42 CFR part 2. A general authorization for the release of medical or other information is NOT sufficient for this purpose. The Federal rules restrict any use of the information to criminally investigate or prosecute any alcohol or drug abuse patient.The records that you are about to access may contain highly sensitive health information, the redisclosure of which is protected by Article 27-F of the [facility] Public Health law. If you continue you may have access to information: Regarding HIV / AIDS; Provided by facilities licensed or operated by the [facility] Office of Mental Health; or Provided by the [facility] Office for People With Developmental Disabilities. If such information is present, then the following [facility] mandated warning applies: This information has been disclosed to you from confidential records which are protected by state law. State law prohibits you from making any further disclosure of this information without the specific written consent of the person to whom it pertains, or as otherwise permitted by law. Any unauthorized further disclosure in violation of state law may result in a fine or penitentiary sentence or both. A general authorization for the release of medical or other information is NOT sufficient authorization for further disc losure. Family History Family Member Name Family Member Gender Family Member Status Date o f Status Description Data Source(s) Unknown Unknown Problem MEDENT ([facility], ) Encounters Encounter Providers Location Date Indications Data Source(s ) Unknown [address] [facility] [place] [address] 12/19/2020 12:00:00 AM EDT eCW1 ([facility]) Unknown [address] [facility] [place] [address] 12/13/2020 12:00:00 AM EDT eCW1 ([facility]) Outpatient [address] [facility] [place] [address] 12/12/2020 12:00:00 AM EDT eCW1 ([facility]) Unknown [address] [facility] [place] [address] 12/12/2020 12:00:00 AM EDT eCW1 ([facility]) Unknown [address] [facility] [place] [address] 12/01/2020 12:00:00 AM EDT eCW1 [facility]) Outpatient Attender: Zakia Conti MD Main [facility] 10/19/2020 02:15:00 PM EDT MEDENT ([facility] EDEN hurtado) Outpatient Attender: Cara ANGUIANO SJP.CARLOS ENRIQUE-SJP.CARLOS ENRIQUE 2020 12:00:00 AM EDT - 10/12/2020 12:16:58 PM EDT [facility] Unknown [address] [facility] [address] 10/11/2020 12:00:00 AM EDT eCW1 ([facility]) Outpatient [address] [facility] [address] 10/11/2020 12:00:00 AM EDT eCW1 ([facility]) Unknown [address] [facility] [place] [address] 10/06/2020 12:00:00 AM EDT eCW1 ([facility]) Outpatient Attender: Selma Wilson/Osman/Win/Briana corcoran 10/04/2020 11:00:00 AM EDT MEDENT ([facility] EDEN Daniels) Unknown [address] [facility] [address] 10/04/2020 12:00:00 AM EDT eCW1 ([facility]) Outpatient [address] [facility] [place] [address] 10/03/2020 12:00:00 AM EDT eCW1 ([facility]) Unknown [address] [facility] [place] [address] 10/03/2020 12:00:00 AM EDT eCW1 ([facility]) Unknown [address] [facility] [place] [address] 09/30/2020 12:00:00 AM EDT eCW1 ([facility]) Unknown [address] [facility] [address] 09/29/2020 12:00:00 AM EDT eCW1 ([facility]) OFFICE OUTPATIENT VISIT 15 MINUTES Attender: Donna PETERSON PA-C Physical Therapy 09/21/2020 10:30:00 AM EDT MEDENT ([facility]) Outpatient Attender: ANGY Pierce/Osman/Win/Lio sue 09/20/2020 03:40:00 PM EDT MEDENT ([facility]) Unknown [address] [facility] [address] 09/15/2020 12:00:00 AM EDT eCW1 ([facility]) Unknown [address] [facility] [address] 09/12/2020 12:00:00 AM EDT eCW1 ([facility]) Outpatient Attender: NILAM KEARNS MD SJP.CARLOS ENRIQUE-SJP.CARLOS ENRIQUE 12:00:00 AM EDT - 09/07/2020 12:16:15 PM EDT [facility] Unknown [address] [facility] [address] 09/05/2020 12:00:00 AM EDT eCW1 ([facility]) Unknown [address] [facility] [address] 09/01/2020 12:00:00 AM EDT eCW1 ([facility]) Unknown [address] [facility] [address] 09/01/2020 12:00:00 AM EDT eCW1 ([facility]) Unknown [address] [facility] [address] 08/31/2020 12:00:00 AM EDT eCW1 ([facility]) Office Visit, Est Pt., Level 4 PC [address] [place] [address] 08/22/2020 12:00:00 AM EDT eCW1 ([facility]) Outpatient Attender: KASSY ZEPEDA Physical Therapy 08/18/2020 01:15:00 PM EDT MEDENT ([facility]) Outpatient Attender: Zakia Conti MD Main office - [place] 08/09/2020 09:30:00 AM EDT MEDENT ([facility]) Office Visit, Est Pt., Level 4 PC [address] [place] [address] 08/02/2020 12:00:00 AM EDT eCW1 ([facility]) Unknown [address] [facility] [address] 08/02/2020 12:00:00 AM EDT eCW1 ([facility]) Outpatient Attender: AYDIN Wilson/Osman/Win/Frannie zeng 08/01/2020 03:30:00 PM EDT MEDENT ([facility]) Unknown [address] [facility] [address] 07/29/2020 12:00:00 AM EDT eCW1 ([facility]) Unknown [address] [facility] [address] 07/26/2020 12:00:00 AM EDT eCW1 ([facility]) Outpatient JAYDACARLOS ENRIQUE 07/22/2020 12:00:00 AM EDT [facility] Office Visit, Est Pt., Level 4 PC [address] [place] [address] 07/20/2020 12:00:00 AM EDT eCW1 ([facility]) Unknown [address] [facility], [facility] [address] 07/15/2020 12:00:00 AM EDT eCW1 ([facility]) OFFICE OUTPATIENT VISIT 15 MINUTES Attender: KASSY ZEPEDA Physical Therapy 07/13/2020 10:30:00 AM EDT MEDENT ([facility]) Outpatient Attender: NILAM MONTELONGOCARLOS ENRIQUE 12:00:00 AM EDT - 07/06/2020 11:32:02 AM EDT [facility] Unknown [address] [facility] [address] 07/06/2020 12:00:00 AM EDT eCW1 ([facility]) Office Visit, Est Pt., Level 4 PC [address] [place] [address] 07/05/2020 12:00:00 AM EDT eCW1 ([facility]) Unknown [address] [facility] [address] 07/05/2020 12:00:00 AM EDT eCW1 ([facility]) Unknown [address] [facility] [place] [address] 07/05/2020 12:00:00 AM EDT eCW1 ([facility]) Unknown [address] [facility] [place] [address] 06/22/2020 12:00:00 AM EDT eCW1 ([facility]) Unknown [address] [facility], [facility] [address] 06/21/2020 12:00:00 AM EDT eCW1 ([facility]) Unknown [address] [facility] [address] 06/17/2020 12:00:00 AM EDT eCW1 ([facility]) Office Visit, Est Pt., Level 2 FC [address] [place] [address] 06/13/2020 12:00:00 AM EDT eCW1 ([facility]) Unknown [address] [facility] [place] [address] 06/09/2020 12:00:00 AM EDT eCW1 ([facility]) Outpatient Attender: NILAM PULIDO.CARLOS ENRIQUE-SJANNIE 10:05:07 AM EDT - 06/08/2020 11:16:32 AM EDT [facility] Unknown [address] [facility] [place] [address] 06/08/2020 12:00:00 AM EDT eCW1 ([facility]) Unknown [address] [facility] [address] 06/06/2020 12:00:00 AM EDT eCW1 ([facility]) Outpatient Attender: KASSY ZEPEDA Physical Therapy 05/26/2020 02:15:00 PM EDT MEDENT ([facility]) Unknown [address] [facility] [address] 05/26/2020 12:00:00 AM EDT eCW1 ([facility]) Unknown [address] [facility] [address] 05/23/2020 12:00:00 AM EDT eCW1 ([facility]) Unknown [address] [facility] [address] 05/18/2020 12:00:00 AM EDT eCW1 [facility] Outpatient [address] [facility] [address] 05/12/2020 12:00:00 AM EDT eCW1 ([facility]) Unknown [address] [facility] [address] 05/06/2020 12:00:00 AM EST eCW1 ([facility]) Outpatient [address] [facility] [address] 05/03/2020 12:00:00 AM EST eCW1 ([facility]) Unknown [address] [facility] [address] 05/03/2020 12:00:00 AM EST eCW1 ([facility]) Unknown [address] [facility] [address] 05/03/2020 12:00:00 AM EST eCW1 ([facility]) Unknown [address] [facility] [place] [address] 04/21/2020 12:00:00 AM EST eCW1 ([facility]) Outpatient Attender: NILAM KEARNS MD SJP.CARLOS ENRIQUE-SJP.CARLOS ENRIQUE 12:00:00 AM EST - 04/15/2020 03:42:03 PM EST [facility] [address] [facility] [address] 04/11/2020 12:00:00 AM EST eCW1 ([facility]) Outpatient [address] [facility] [address] 04/05/2020 12:00:00 AM EST eCW1 ([facility]) Outpatient [address] [facility] [address] 04/04/2020 12:00:00 AM EST eCW1 ([facility]) Outpatient Attender: ANGY Pierce/Osman/Win/Lio sue 03/24/2020 08:10:00 AM EST MEDENT ([facility]) Unknown [address] [facility] [address] 03/21/2020 12:00:00 AM EST eCW1 ([facility]) Unknown [address] [facility] [address] 03/15/2020 12:00:00 AM EST eCW1 ([facility]) Unknown [address] [facility] [address] 03/08/2020 12:00:00 AM EST eCW1 ([facility]) Outpatient [address] [facility] [address] 03/08/2020 12:00:00 AM EST eCW1 ([facility]) Unknown [address] [facility] [address] 03/08/2020 12:00:00 AM EST eCW1 ([facility]) Unknown [address] [facility] [address] 03/08/2020 12:00:00 AM EST eCW1 ([facility]) Unknown [address] [facility] [address] 02/25/2020 12:00:00 AM EST eCW1 ([facility]) Unknown [address] [facility] [address] 02/25/2020 12:00:00 AM EST eCW1 ([facility]) Outpatient [address] [facility] [address] 02/23/2020 12:00:00 AM EST eCW1 ([facility]) Unknown [address] [facility] [address] 02/23/2020 12:00:00 AM EST eCW1 ([facility]) Unknown [address] [facility] [place] [address] 02/23/2020 12:00:00 AM EST eCW1 ([facility]) Unknown [address] [facility] [place] [address] 02/22/2020 12:00:00 AM EST eCW1 ([facility]) Unknown [address] [facility] [address] 02/22/2020 12:00:00 AM EST eCW1 ([facility]) Unknown [address] [facility] [place] [address] 02/15/2020 12:00:00 AM EST eCW1 ([facility]) Unknown [address] [facility] [place] [address] 02/15/2020 12:00:00 AM EST eCW1 ([facility]) Unknown [address] [facility] [address] 02/12/2020 12:00:00 AM EST eCW1 ([facility]) Unknown [address] [facility] [place] [address] 02/10/2020 12:00:00 AM EST eCW1 ([facility]) Outpatient Attender: AYDIN Wilson/Osman/Win/Frannie zeng 02/09/2020 08:00:00 AM EST MEDENT ([facility]) Office Visit, Est Pt., Level 4 PC [address] [place] [address] 02/09/2020 12:00:00 AM EST eCW1 ([facility]) Unknown [address] [facility] [address] 02/04/2020 12:00:00 AM EST eCW1 ([facility]) Unknown [address] [facility] [address] 02/03/2020 12:00:00 AM EST eCW1 ([facility]) Unknown [address] [facility] [place] [address] 01/29/2020 12:00:00 AM EST eCW1 ([facility]) Unknown [address] [facility] [address] 01/29/2020 12:00:00 AM EST eCW1 ([facility]) Outpatient [address] [facility] [address] 01/26/2020 12:00:00 AM EST eCW1 ([facility]) Unknown [address] [facility] [address] 01/20/2020 12:00:00 AM EST eCW1 ([facility]) Outpatient Attender: ANGY Pierce/Osman/Win/Lio sue 01/14/2020 12:40:00 PM EST MEDENT ([facility]) Unknown [address] [facility] [place] [address] 01/08/2020 12:00:00 AM EST eCW1 ([facility]) Unknown [address] [facility] [place] [address] 01/06/2020 12:00:00 AM EST eCW1 ([facility]) Unknown [address] [facility] [address] 12/31/2019 12:00:00 AM EST eCW1 ([facility]) Outpatient Attender: NILAM PULIDO.CARLOS ENRIQUE-SJP.CARLOS ENRIQUE 0 12:00:00 AM EST - 12/30/2019 09:40:17 AM EST [facility] Unknown [address] [facility] [address] 12/30/2019 12:00:00 AM EST eCW1 ([facility]) Unknown [address] [facility] [address] 12/25/2019 12:00:00 AM EDT eCW1 ([facility]) Unknown [address] [facility] [place] [address] 12/11/2019 12:00:00 AM EDT eCW1 ([facility]) Unknown [address] [facility] [address] 12/08/2019 12:00:00 AM EDT eCW1 ([facility]) Unknown [address] [facility] [address] 12/07/2019 12:00:00 AM EDT eCW1 ([facility]) Office Visit Attender: KASSY ZEPEDA Physical Therapy 12/04/2019 04:00:00 PM EDT MEDENT ([facility]) Unknown [address] [facility] [address] 12/03/2019 12:00:00 AM EDT eCW1 ([facility]) Unknown [address] [facility] [place] [address] 12/03/2019 12:00:00 AM EDT eCW1 ([facility]) Unknown [address] [facility] [place] [address] 12/02/2019 12:00:00 AM EDT eCW1 ([facility]) Outpatient [address] [facility] [place] [address] 12/01/2019 12:00:00 AM EDT eCW1 ([facility]) Outpatient Referrer: [facility] [place] 11/13/2019 1 2:27:00 PM EDT 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 [facility] mild to mod cord compression of C5 and C 6 Outpatient Attender: KASSY mallory 11/06/2019 02:45:00 PM EDT MEDENT ([facility]) <td ID="encounterTypeDescriptionID0">1 Y ear Follow-Up</td><td>Silverio Mustafa DO</td><td>Aydin Weaver MD [facility]</td><td>10/05/2020</td><td>04/07/2019 11:50AM</td><td>11:08AM</td><td><content ID="encounterDiagnosisID0-0">History of Nicotine Dependence</content>, <content ID="encounterDiagnosisID0-1">Essential Hypertension</content>, <content ID="encounterDiagnosisID0-2">Retinopathy Hypertensive</content>, <content ID="encounterDiagnosisID0-3">Taking Medication For Diabetes Long-term Use of Insulin</content>, <content ID="encounterDiagnosisID0-4">Dry Eye Syndrome Both Eyes</content>, <content ID="encounterDiagnosisID0-5">Borderline Glaucoma Ocular Hypertension Both Eyes</content>, <content ID="encounterDiagnosisID0-6">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</content>, <content ID="encounterDiagnosisID0-7">Pseudophakia</content>, <content ID="encounterDiagnosisID0-8">Posterior Capsule Opacification Eccentric Capsule Both Eyes</content></td>Outpatient Attender: SILVERIO Swartz MD [facility] 04/07/2019 11:50:00 AM EST - 10/05/2020 11:08:00 AM ED T Posterior Capsule Opacification Eccentric Capsule Both EyesPseudophakiaHistory of Nicotine DependenceEssential Hypertension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Taking Medication For Diabetes Long-term Use of Insulin Retinopathy HypertensiveBorderline Glaucoma Ocular Hypertension Both EyesDry Eye Syndrome Both Eyes SHANE (Aydin Toribio MD [facility]) Posterior Capsule Opacification Eccentri c Capsule Both Eyes Pseudophakia History of Nicotine Dependence Essential Hypertension 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 Nonp rolif Without Macular Edema Taking Medication For Diabetes Long-term Use of Insulin 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 Dry Eye Syndrome Both Eyes Medications Medication Brand Name Start Date Product Form Dose Route Admi nistrative Instructions Pharmacy Instructions Status Indications Reaction Description Data Source(s) Levothyroxine Sodium 0.075 MG Oral Tablet Levothyroxin e Sodium 75 MCG Levothyroxine Sodium 75 MCG 12/13/2020 12:00:00 AM EDT active Levothyroxine Sodium 75 MCG eCW1 ([facility]) Levothyroxine Sodium 0.075 MG Oral Tablet Levothyroxin e Sodium 75 MCG Levothyroxine Sodium 75 MCG 12/13/2020 12:00:00 AM EDT active Levothyroxine Sodium 75 MCG eCW1 ([facility]) Levothyroxine Sodium 0.075 MG Oral Tablet Levothyroxin e Sodium 75 MCG Levothyroxine Sodium 75 MCG 12/13/2020 12:00:00 AM EDT active Levothyroxine Sodium 75 MCG eCW1 ([facility]) duloxetine 60 MG Delayed Release Oral Capsule DULoxeti ne HCl 60 MG DULoxetine HCl 60 MG 12/12/2020 12:00:00 AM EDT 1.0 {capsule} a ctive DULoxetine HCl 60 MG eCW1 ([facility]) duloxetine 60 MG Delayed Release Oral Capsule DULoxeti ne HCl 60 MG DULoxetine HCl 60 MG 12/12/2020 12:00:00 AM EDT 1.0 {capsule} a ctive DULoxetine HCl 60 MG eCW1 ([facility]) duloxetine 60 MG Delayed Release Oral Capsule DULoxeti ne HCl 60 MG DULoxetine HCl 60 MG 12/12/2020 12:00:00 AM EDT 1.0 {capsule} a ctive DULoxetine HCl 60 MG eCW1 ([facility]) duloxetine 60 MG Delayed Release Oral Capsule DULoxeti ne HCl 60 MG DULoxetine HCl 60 MG 12/12/2020 12:00:00 AM EDT 1.0 {capsule} a ctive DULoxetine HCl 60 MG eCW1 ([facility]) Acetaminophen 325 MG / Hydrocodone Brielle trate 7.5 MG Oral Tablet HYDROcodone- Acetaminophen 7.5-325 MG HYDROcodone-Acetaminophen 7.5-325 MG 12/01/2020 12:00:00 AM EDT 1.0 {tablet_as_needed} active HYDROcodone- Acetaminophen 7.5-325 MG eCW1 ([facility]) Acetaminophen 325 MG / Hydrocodone Brielle trate 7.5 MG Oral Tablet HYDROcodone- Acetaminophen 7.5-325 MG HYDROcodone-Acetaminophen 7.5-325 MG 12/01/2020 12:00:00 AM EDT 1.0 {tablet_as_needed} active HYDROcodone- Acetaminophen 7.5-325 MG eCW1 ([facility]) Acetaminophen 325 MG / Hydrocodone Brielle trate 7.5 MG Oral Tablet HYDROcodone- Acetaminophen 7.5-325 MG HYDROcodone-Acetaminophen 7.5-325 MG 12/01/2020 12:00:00 AM EDT 1.0 {tablet_as_needed} active HYDROcodone- Acetaminophen 7.5-325 MG eCW1 ([facility]) Acetaminophen 325 MG / Hydrocodone Brielle trate 7.5 MG Oral Tablet HYDROcodone- Acetaminophen 7.5-325 MG HYDROcodone-Acetaminophen 7.5-325 MG 12/01/2020 12:00:00 AM EDT 1.0 {tablet_as_needed} active HYDROcodone- Acetaminophen 7.5-325 MG eCW1 ([facility]) Acetaminophen 325 MG / Hydrocodone Brielle trate 7.5 MG Oral Tablet HYDROcodone- Acetaminophen 7.5-325 MG HYDROcodone-Acetaminophen 7.5-325 MG 12/01/2020 12:00:00 AM EDT 1.0 {tablet_as_needed} active HYDROcodone- Acetaminophen 7.5-325 MG eCW1 ([facility]) Primidone 50 MG Oral Tablet Primidone 10/19/2020 12:00:00 AM EDT active MEDENT ([facility], ) Triamcinolone Acetonide 1 MG/ML Topical Cream Triamcin olone Acetonide 0.1 % Triamcinolone Acetonide 0.1 % 10/11/2020 12:00:00 AM EDT active Triamcinolone Acetonide 0.1 % eCW1 ([facility]) Triamcinolone Acetonide 1 MG/ML Topical Cream Triamcin olone Acetonide 0.1 % Triamcinolone Acetonide 0.1 % 10/11/2020 12:00:00 AM EDT active Triamcinolone Acetonide 0.1 % eCW1 ([facility]) Triamcinolone Acetonide 1 MG/ML Topical Cream Triamcin olone Acetonide 0.1 % Triamcinolone Acetonide 0.1 % 10/11/2020 12:00:00 AM EDT active Triamcinolone Acetonide 0.1 % eCW1 ([facility]) Triamcinolone Acetonide 1 MG/ML Topical Cream Triamcin olone Acetonide 0.1 % Triamcinolone Acetonide 0.1 % 10/11/2020 12:00:00 AM EDT active Triamcinolone Acetonide 0.1 % eCW1 ([facility]) Triamcinolone Acetonide 1 MG/ML Topical Cream Triamcin olone Acetonide 0.1 % Triamcinolone Acetonide 0.1 % 10/11/2020 12:00:00 AM EDT active Triamcinolone Acetonide 0.1 % eCW1 ([facility]) Triamcinolone Acetonide 1 MG/ML Topical Cream Triamcin olone Acetonide 0.1 % Triamcinolone Acetonide 0.1 % 10/11/2020 12:00:00 AM EDT active Triamcinolone Acetonide 0.1 % eCW1 ([facility]) Triamcinolone Acetonide 1 MG/ML Topical Cream Triamcin olone Acetonide 0.1 % Triamcinolone Acetonide 0.1 % 10/11/2020 12:00:00 AM EDT active Triamcinolone Acetonide 0.1 % eCW1 ([facility]) Levothyroxine Sodium 0.05 MG Oral Tablet Levothyroxine Sodium 50 MCG Levothyroxine Sodium 50 MCG 10/04/2020 12:00:00 AM EDT active Levothyroxine Sodium 50 MCG eCW1 ([facility]) Levothyroxine Sodium 0.05 MG Oral Tablet Levothyroxine Sodium 50 MCG Levothyroxine Sodium 50 MCG 10/04/2020 12:00:00 AM EDT active Levothyroxine Sodium 50 MCG eCW1 ([facility]) Levothyroxine Sodium 0.05 MG Oral Tablet Levothyroxine Sodium 50 MCG Levothyroxine Sodium 50 MCG 10/04/2020 12:00:00 AM EDT active Levothyroxine Sodium 50 MCG eCW1 ([facility]) Levothyroxine Sodium 0.05 MG Oral Tablet Levothyroxine Sodium 50 MCG Levothyroxine Sodium 50 MCG 10/04/2020 12:00:00 AM EDT active Levothyroxine Sodium 50 MCG eCW1 ([facility]) Levothyroxine Sodium 0.05 MG Oral Tablet Levothyroxine Sodium 50 MCG Levothyroxine Sodium 50 MCG 10/04/2020 12:00:00 AM EDT active Levothyroxine Sodium 50 MCG eCW1 ([facility]) Levothyroxine Sodium 0.05 MG Oral Tablet Levothyroxine Sodium 50 MCG Levothyroxine Sodium 50 MCG 10/04/2020 12:00:00 AM EDT active Levothyroxine Sodium 50 MCG eCW1 ([facility]) Acetaminophen 325 MG / Hydrocodone Brielle trate 7.5 MG Oral Tablet HYDROcodone- Acetaminophen 7.5-325 MG HYDROcodone-Acetaminophen 7.5-325 MG 10/03/2020 12:00:00 AM EDT 1.0 {tablet_as_needed} active HYDROcodone- Acetaminophen 7.5-325 MG eCW1 ([facility]) Acetaminophen 325 MG / Hydrocodone Brielle trate 7.5 MG Oral Tablet HYDROcodone- Acetaminophen 7.5-325 MG HYDROcodone-Acetaminophen 7.5-325 MG 10/03/2020 12:00:00 AM EDT 1.0 {tablet_as_needed} active HYDROcodone- Acetaminophen 7.5-325 MG eCW1 ([facility]) Acetaminophen 325 MG / Hydrocodone Brielle trate 7.5 MG Oral Tablet HYDROcodone- Acetaminophen 7.5-325 MG HYDROcodone-Acetaminophen 7.5-325 MG 10/03/2020 12:00:00 AM EDT 1.0 {tablet_as_needed} active HYDROcodone- Acetaminophen 7.5-325 MG eCW1 ([facility]) Acetaminophen 325 MG / Hydrocodone Brielle trate 7.5 MG Oral Tablet HYDROcodone- Acetaminophen 7.5-325 MG HYDROcodone-Acetaminophen 7.5-325 MG 10/03/2020 12:00:00 AM EDT 1.0 {tablet_as_needed} active HYDROcodone- Acetaminophen 7.5-325 MG eCW1 ([facility]) Acetaminophen 325 MG / Hydrocodone Brielle trate 7.5 MG Oral Tablet HYDROcodone- Acetaminophen 7.5-325 MG HYDROcodone-Acetaminophen 7.5-325 MG 10/03/2020 12:00:00 AM EDT 1.0 {tablet_as_needed} active HYDROcodone- Acetaminophen 7.5-325 MG eCW1 ([facility]) Acetaminophen 325 MG / Hydrocodone Brielle trate 7.5 MG Oral Tablet HYDROcodone- Acetaminophen 7.5-325 MG HYDROcodone-Acetaminophen 7.5-325 MG 10/03/2020 12:00:00 AM EDT 1.0 {tablet_as_needed} active HYDROcodone- Acetaminophen 7.5-325 MG eCW1 ([facility]) Acetaminophen 325 MG / Hydrocodone Brielle trate 7.5 MG Oral Tablet HYDROcodone- Acetaminophen 7.5-325 MG HYDROcodone-Acetaminophen 7.5-325 MG 10/03/2020 12:00:00 AM EDT 1.0 {tablet_as_needed} active HYDROcodone- Acetaminophen 7.5-325 MG eCW1 ([facility]) Acetaminophen 325 MG / Hydrocodone Brielle trate 7.5 MG Oral Tablet HYDROcodone- Acetaminophen 7.5-325 MG HYDROcodone-Acetaminophen 7.5-325 MG 10/03/2020 12:00:00 AM EDT 1.0 {tablet_as_needed} active HYDROcodone- Acetaminophen 7.5-325 MG eCW1 ([facility]) Acetaminophen 325 MG / Hydrocodone Brielle trate 7.5 MG Oral Tablet HYDROcodone- Acetaminophen 7.5-325 MG HYDROcodone-Acetaminophen 7.5-325 MG 10/03/2020 12:00:00 AM EDT 1.0 {tablet_as_needed} active HYDROcodone- Acetaminophen 7.5-325 MG eCW1 ([facility]) Acetaminophen 325 MG / Hydrocodone Brielle trate 7.5 MG Oral Tablet HYDROcodone- Acetaminophen 7.5-325 MG HYDROcodone-Acetaminophen 7.5-325 MG 10/03/2020 12:00:00 AM EDT 1.0 {tablet_as_needed} active HYDROcodone- Acetaminophen 7.5-325 MG eCW1 ([facility]) Acetaminophen 325 MG / Hydrocodone Brielle trate 7.5 MG Oral Tablet HYDROcodone- Acetaminophen 7.5-325 MG HYDROcodone-Acetaminophen 7.5-325 MG 10/03/2020 12:00:00 AM EDT 1.0 {tablet_as_needed} active HYDROcodone- Acetaminophen 7.5-325 MG eCW1 ([facility]) Acetaminophen 325 MG / Hydrocodone Brielle trate 7.5 MG Oral Tablet HYDROcodone- Acetaminophen 7.5-325 MG HYDROcodone-Acetaminophen 7.5-325 MG 10/03/2020 12:00:00 AM EDT 1.0 {tablet_as_needed} active HYDROcodone- Acetaminophen 7.5-325 MG eCW1 ([facility]) Acetaminophen 325 MG / Hydrocodone Brielle trate 7.5 MG Oral Tablet HYDROcodone- Acetaminophen 7.5-325 MG HYDROcodone-Acetaminophen 7.5-325 MG 10/03/2020 12:00:00 AM EDT 1.0 {tablet_as_needed} active HYDROcodone- Acetaminophen 7.5-325 MG eCW1 ([facility]) Acetaminophen 325 MG / Hydrocodone Brielle trate 7.5 MG Oral Tablet HYDROcodone- Acetaminophen 7.5-325 MG HYDROcodone-Acetaminophen 7.5-325 MG 10/03/2020 12:00:00 AM EDT 1.0 {tablet_as_needed} active HYDROcodone- Acetaminophen 7.5-325 MG eCW1 ([facility]) Acetaminophen 325 MG / Hydrocodone Brielle trate 7.5 MG Oral Tablet HYDROcodone- Acetaminophen 7.5-325 MG HYDROcodone-Acetaminophen 7.5-325 MG 10/03/2020 12:00:00 AM EDT 1.0 {tablet_as_needed} active HYDROcodone- Acetaminophen 7.5-325 MG eCW1 ([facility]) Acetaminophen 325 MG / Hydrocodone Brielle trate 7.5 MG Oral Tablet HYDROcodone- Acetaminophen 7.5-325 MG HYDROcodone-Acetaminophen 7.5-325 MG 10/03/2020 12:00:00 AM EDT 1.0 {tablet_as_needed} active HYDROcodone- Acetaminophen 7.5-325 MG eCW1 ([facility]) Acetaminophen 325 MG / Hydrocodone Brielle trate 7.5 MG Oral Tablet HYDROcodone- Acetaminophen 7.5-325 MG HYDROcodone-Acetaminophen 7.5-325 MG 10/03/2020 12:00:00 AM EDT 1.0 {tablet_as_needed} active HYDROcodone- Acetaminophen 7.5-325 MG eCW1 ([facility]) Amlodipine 2.5 MG Oral Tablet amLODIPine Besylate 2.5 MG amLODIPine Besylate 2.5 MG 09/30/2020 12:00:00 AM EDT 1.0 {tablet} activ e amLODIPine Besylate 2.5 MG eCW1 ([facility]) Amlodipine 2.5 MG Oral Tablet amLODIPine Besylate 2.5 MG amLODIPine Besylate 2.5 MG 09/30/2020 12:00:00 AM EDT 1.0 {tablet} activ e amLODIPine Besylate 2.5 MG eCW1 ([facility]) Amlodipine 2.5 MG Oral Tablet amLODIPine Besylate 2.5 MG amLODIPine Besylate 2.5 MG 09/30/2020 12:00:00 AM EDT 1.0 {tablet} activ e amLODIPine Besylate 2.5 MG eCW1 ([facility]) Amlodipine 2.5 MG Oral Tablet amLODIPine Besylate 2.5 MG amLODIPine Besylate 2.5 MG 09/30/2020 12:00:00 AM EDT 2.0 {tablets} acti ve amLODIPine Besylate 2.5 MG eCW1 ([facility]) Amlodipine 2.5 MG Oral Tablet amLODIPine Besylate 2.5 MG amLODIPine Besylate 2.5 MG 09/30/2020 12:00:00 AM EDT 2.0 {tablets} acti ve amLODIPine Besylate 2.5 MG eCW1 ([facility]) Amlodipine 2.5 MG Oral Tablet amLODIPine (NORVASC) 2.5 MG tablet amLODIPine (NORVASC) 2.5 MG tablet 09/30/2020 12:00:00 AM EDT active [facility] Amlodipine 2.5 MG Oral Tablet amLODIPine Besylate 2.5 MG amLODIPine Besylate 2.5 MG 09/30/2020 12:00:00 AM EDT 1.0 {tablet} activ e amLODIPine Besylate 2.5 MG eCW1 ([facility]) Amlodipine 2.5 MG Oral Tablet amLODIPine Besylate 2.5 MG amLODIPine Besylate 2.5 MG 09/30/2020 12:00:00 AM EDT 1.0 {tablet} activ e amLODIPine Besylate 2.5 MG eCW1 ([facility]) Amlodipine 2.5 MG Oral Tablet amLODIPine Besylate 2.5 MG amLODIPine Besylate 2.5 MG 09/30/2020 12:00:00 AM EDT 1.0 {tablet} activ e amLODIPine Besylate 2.5 MG eCW1 ([facility]) Amlodipine 2.5 MG Oral Tablet amLODIPine Besylate 2.5 MG amLODIPine Besylate 2.5 MG 09/30/2020 12:00:00 AM EDT 1.0 {tablet} activ e amLODIPine Besylate 2.5 MG eCW1 ([facility]) Amlodipine 2.5 MG Oral Tablet amLODIPine Besylate 2.5 MG amLODIPine Besylate 2.5 MG 09/30/2020 12:00:00 AM EDT 2.0 {tablets} acti ve amLODIPine Besylate 2.5 MG eCW1 ([facility]) Amlodipine 2.5 MG Oral Tablet amLODIPine Besylate 2.5 MG amLODIPine Besylate 2.5 MG 09/30/2020 12:00:00 AM EDT 2.0 {tablets} acti ve amLODIPine Besylate 2.5 MG eCW1 ([facility]) Amlodipine 2.5 MG Oral Tablet amLODIPine Besylate 2.5 MG amLODIPine Besylate 2.5 MG 09/30/2020 12:00:00 AM EDT 1.0 {tablet} activ e amLODIPine Besylate 2.5 MG eCW1 ([facility]) 3 ML Sodium Hyaluronate 10 MG/ML Prefilled Syringe [Gel-One] Gel-One 09/21/2020 12:00:00 AM EDT active M EDENT ([facility]) Acetaminophen 325 MG / Hydrocodone Brielle trate 7.5 MG Oral Tablet HYDROcodone- Acetaminophen 7.5-325 MG HYDROcodone-Acetaminophen 7.5-325 MG 09/12/2020 12:00:00 AM EDT 1.0 {tablet_as_needed} active HYDROcodone- Acetaminophen 7.5-325 MG eCW1 ([facility]) Acetaminophen 325 MG / Hydrocodone Brielle trate 7.5 MG Oral Tablet HYDROcodone- Acetaminophen 7.5-325 MG HYDROcodone-Acetaminophen 7.5-325 MG 09/12/2020 12:00:00 AM EDT 1.0 {tablet_as_needed} active HYDROcodone- Acetaminophen 7.5-325 MG eCW1 ([facility]) Acetaminophen 325 MG / Hydrocodone Brielle trate 7.5 MG Oral Tablet HYDROcodone- Acetaminophen 7.5-325 MG HYDROcodone-Acetaminophen 7.5-325 MG 09/12/2020 12:00:00 AM EDT 1.0 {tablet_as_needed} active HYDROcodone- Acetaminophen 7.5-325 MG eCW1 ([facility]) Acetaminophen 325 MG / Hydrocodone Brielle trate 7.5 MG Oral Tablet HYDROcodone- Acetaminophen 7.5-325 MG HYDROcodone-Acetaminophen 7.5-325 MG 09/12/2020 12:00:00 AM EDT 1.0 {tablet_as_needed} active HYDROcodone- Acetaminophen 7.5-325 MG W1 ([facility]) Hospital bed _ UNK 08/22/2020 12:00:00 AM EDT active Hospital bed _ eCW1 ([facility]) Hospital bed _ UNK 08/22/2020 12:00:00 AM EDT active Hospital bed _ eCW1 ([facility]) Hospital bed _ UNK 08/22/2020 12:00:00 AM EDT active Hospital bed _ eCW1 ([facility]) Hospital bed _ UNK 08/22/2020 12:00:00 AM EDT active Hospital bed _ eCW1 ([facility]) Hospital bed _ UNK 08/22/2020 12:00:00 AM EDT active Hospital bed _ eCW1 ([facility]) Hospital bed _ K 08/22/2020 12:00:00 AM EDT active Hospital bed _ eCW1 ([facility]) Hospital bed _ K 08/22/2020 12:00:00 AM EDT active Hospital bed _ eCW1 ([facility]) Hospital bed _ K 08/22/2020 12:00:00 AM EDT active Hospital bed _ eCW1 ([facility]) Hospital bed _ K 08/22/2020 12:00:00 AM EDT active Hospital bed _ eCW1 ([facility]) Hospital bed _ [facility] 08/22/2020 12:00:00 AM EDT active Hospital bed _ eCW1 ([facility]) Hospital bed _ [facility] 08/22/2020 12:00:00 AM EDT active Hospital bed _ eCW1 ([facility]) Hospital bed _ [facility] 08/22/2020 12:00:00 AM EDT active Hospital bed _ eCW1 ([facility]) Hospital bed _ [facility] 08/22/2020 12:00:00 AM EDT active Hospital bed _ eCW1 ([facility]) Hospital bed _ [facility] 08/22/2020 12:00:00 AM EDT active Hospital bed _ eCW1 ([facility]) Hospital bed _ K 08/22/2020 12:00:00 AM EDT active Hospital bed _ eCW1 ([facility]) Hospital bed _ K 08/22/2020 12:00:00 AM EDT active Hospital bed _ eCW1 ([facility]) Hospital bed _ K 08/22/2020 12:00:00 AM EDT active Hospital bed _ eCW1 ([facility]) Hospital bed _ K 08/22/2020 12:00:00 AM EDT active Hospital bed _ eCW1 ([facility]) Hospital bed _ K 08/22/2020 12:00:00 AM EDT active Hospital bed _ eCW1 ([facility]) Hospital bed _ [facility] 08/22/2020 12:00:00 AM EDT active Hospital bed _ eCW1 ([facility]) Acetaminophen 325 MG / Hydrocodone Brielle trate 7.5 MG Oral Tablet HYDROcodone- Acetaminophen 7.5-325 MG HYDROcodone-Acetaminophen 7.5-325 MG 08/02/2020 12:00:00 AM EDT 1.0 {tablet_as_needed} active HYDROcodone- Acetaminophen 7.5-325 MG eCW1 ([facility]) Acetaminophen 325 MG / Hydrocodone Brielle trate 7.5 MG Oral Tablet HYDROcodone- Acetaminophen 7.5-325 MG HYDROcodone-Acetaminophen 7.5-325 MG 08/02/2020 12:00:00 AM EDT 1.0 {tablet_as_needed} active HYDROcodone- Acetaminophen 7.5-325 MG eCW1 ([facility]) Acetaminophen 325 MG / Hydrocodone Brielle trate 7.5 MG Oral Tablet HYDROcodone- Acetaminophen 7.5-325 MG HYDROcodone-Acetaminophen 7.5-325 MG 08/02/2020 12:00:00 AM EDT 1.0 {tablet_as_needed} active HYDROcodone- Acetaminophen 7.5-325 MG eCW1 ([facility]) Acetaminophen 325 MG / Hydrocodone Brielle trate 7.5 MG Oral Tablet HYDROcodone- Acetaminophen 7.5-325 MG HYDROcodone-Acetaminophen 7.5-325 MG 08/02/2020 12:00:00 AM EDT 1.0 {tablet_as_needed} active HYDROcodone- Acetaminophen 7.5-325 MG eCW1 ([facility]) Acetaminophen 325 MG / Hydrocodone Brielle trate 7.5 MG Oral Tablet HYDROcodone- Acetaminophen 7.5-325 MG HYDROcodone-Acetaminophen 7.5-325 MG 08/02/2020 12:00:00 AM EDT 1.0 {tablet_as_needed} active HYDROcodone- Acetaminophen 7.5-325 MG eCW1 ([facility]) Acetaminophen 325 MG / Hydrocodone Brielle trate 7.5 MG Oral Tablet HYDROcodone- Acetaminophen 7.5-325 MG HYDROcodone-Acetaminophen 7.5-325 MG 08/02/2020 12:00:00 AM EDT 1.0 {tablet_as_needed} active HYDROcodone- Acetaminophen 7.5-325 MG eCW1 ([facility]) Acetaminophen 325 MG / Hydrocodone Brielle trate 7.5 MG Oral Tablet HYDROcodone- Acetaminophen 7.5-325 MG HYDROcodone-Acetaminophen 7.5-325 MG 08/02/2020 12:00:00 AM EDT 1.0 {tablet_as_needed} active HYDROcodone- Acetaminophen 7.5-325 MG eCW1 ([facility]) Blood Pressure Monitor - Blood Pressure Monitor - 07/29/2020 12:00: 00 AM EDT active Blood Pressure Monitor - eCW1 ([facility]) Blood Pressure Monitor - Blood Pressure Monitor - 07/29/2020 12:00: 00 AM EDT active Blood Pressure Monitor - eCW1 ([facility]) Blood Pressure Monitor - Blood Pressure Monitor - 07/29/2020 12:00: 00 AM EDT active Blood Pressure Monitor - eCW1 ([facility]) Blood Pressure Monitor - Blood Pressure Monitor - 07/29/2020 12:00: 00 AM EDT active Blood Pressure Monitor - eCW1 ([facility]) Blood Pressure Monitor - Blood Pressure Monitor - 07/29/2020 12:00: 00 AM EDT active Blood Pressure Monitor - eCW1 ([facility]) Blood Pressure Monitor - Blood Pressure Monitor - 07/29/2020 12:00: 00 AM EDT active Blood Pressure Monitor - eCW1 ([facility]) Blood Pressure Monitor - Blood Pressure Monitor - 07/29/2020 12:00: 00 AM EDT active Blood Pressure Monitor - eCW1 ([facility]) Blood Pressure Monitor - Blood Pressure Monitor - 07/29/2020 12:00: 00 AM EDT active Blood Pressure Monitor - eCW1 ([facility]) Blood Pressure Monitor - Blood Pressure Monitor - 07/29/2020 12:00: 00 AM EDT active Blood Pressure Monitor - eCW1 ([facility]) Blood Pressure Monitor - Blood Pressure Monitor - 07/29/2020 12:00: 00 AM EDT active Blood Pressure Monitor - eCW1 ([facility]) Blood Pressure Monitor - Blood Pressure Monitor - 07/29/2020 12:00: 00 AM EDT active Blood Pressure Monitor - eCW1 ([facility]) Blood Pressure Monitor - Blood Pressure Monitor - 07/29/2020 12:00: 00 AM EDT active Blood Pressure Monitor - eCW1 ([facility]) Blood Pressure Monitor - Blood Pressure Monitor - 07/29/2020 12:00: 00 AM EDT active Blood Pressure Monitor - eCW1 ([facility]) Blood Pressure Monitor - Blood Pressure Monitor - 07/29/2020 12:00: 00 AM EDT active Blood Pressure Monitor - eCW1 ([facility]) Blood Pressure Monitor - Blood Pressure Monitor - 07/29/2020 12:00: 00 AM EDT active Blood Pressure Monitor - eCW1 ([facility]) Blood Pressure Monitor - Blood Pressure Monitor - 07/29/2020 12:00: 00 AM EDT active Blood Pressure Monitor - eCW1 ([facility]) Blood Pressure Monitor - Blood Pressure Monitor - 07/29/2020 12:00: 00 AM EDT active Blood Pressure Monitor - eCW1 ([facility]) Blood Pressure Monitor - Blood Pressure Monitor - 07/29/2020 12:00: 00 AM EDT active Blood Pressure Monitor - eCW1 ([facility]) Blood Pressure Monitor - Blood Pressure Monitor - 07/29/2020 12:00: 00 AM EDT active Blood Pressure Monitor - eCW1 ([facility]) Blood Pressure Monitor - Blood Pressure Monitor - 07/29/2020 12:00: 00 AM EDT active Blood Pressure Monitor - eCW1 ([facility]) Blood Pressure Monitor - Blood Pressure Monitor - 07/29/2020 12:00: 00 AM EDT active Blood Pressure Monitor - eCW1 ([facility]) Blood Pressure Monitor - Blood Pressure Monitor - 07/29/2020 12:00: 00 AM EDT active Blood Pressure Monitor - eCW1 ([facility]) Blood Pressure Monitor - Blood Pressure Monitor - 07/29/2020 12:00: 00 AM EDT active Blood Pressure Monitor - eCW1 ([facility]) Blood Pressure Kit - Blood Pressure Kit - 07/22/2020 12:00:00 AM EDT active Blood Pressure Kit - eCW1 ([facility]) Blood Pressure Kit - Blood Pressure Kit - 07/22/2020 12:00:00 AM EDT active Blood Pressure Kit - eCW1 ([facility]) Blood Pressure Kit - Blood Pressure Kit - 07/22/2020 12:00:00 AM EDT active Blood Pressure Kit - eCW1 ([facility]) Blood Pressure Kit - Blood Pressure Kit - 07/22/2020 12:00:00 AM EDT active Blood Pressure Kit - eCW1 ([facility]) Blood Pressure Kit - Blood Pressure Kit - 07/22/2020 12:00:00 AM EDT active Blood Pressure Kit - eCW1 ([facility]) Blood Pressure Kit - Blood Pressure Kit - 07/22/2020 12:00:00 AM EDT active Blood Pressure Kit - eCW1 ([facility]) Blood Pressure Kit - Blood Pressure Kit - 07/22/2020 12:00:00 AM EDT active Blood Pressure Kit - eCW1 ([facility]) Blood Pressure Kit - Blood Pressure Kit - 07/22/2020 12:00:00 AM EDT active Blood Pressure Kit - eCW1 ([facility]) Blood Pressure Kit - Blood Pressure Kit - 07/22/2020 12:00:00 AM EDT active Blood Pressure Kit - eCW1 ([facility]) Blood Pressure Kit - Blood Pressure Kit - 07/22/2020 12:00:00 AM EDT active Blood Pressure Kit - eCW1 ([facility]) Blood Pressure Kit - Blood Pressure Kit - 07/22/2020 12:00:00 AM EDT active Blood Pressure Kit - eCW1 ([facility]) Blood Pressure Kit - Blood Pressure Kit - 07/22/2020 12:00:00 AM EDT active Blood Pressure Kit - eCW1 ([facility]) Blood Pressure Kit - Blood Pressure Kit - 07/22/2020 12:00:00 AM EDT active Blood Pressure Kit - eCW1 ([facility]) Blood Pressure Kit - Blood Pressure Kit - 07/22/2020 12:00:00 AM EDT active Blood Pressure Kit - eCW1 ([facility]) Blood Pressure Kit - Blood Pressure Kit - 07/22/2020 12:00:00 AM EDT active Blood Pressure Kit - eCW1 ([facility]) Blood Pressure Kit - Blood Pressure Kit - 07/22/2020 12:00:00 AM EDT active Blood Pressure Kit - eCW1 ([facility]) Blood Pressure Kit - Blood Pressure Kit - 07/22/2020 12:00:00 AM EDT active Blood Pressure Kit - eCW1 ([facility]) Blood Pressure Kit - Blood Pressure Kit - 07/22/2020 12:00:00 AM EDT active Blood Pressure Kit - eCW1 ([facility]) Blood Pressure Kit - Blood Pressure Kit - 07/22/2020 12:00:00 AM EDT active Blood Pressure Kit - eCW1 ([facility]) Blood Pressure Kit - Blood Pressure Kit - 07/22/2020 12:00:00 AM EDT active Blood Pressure Kit - eCW1 ([facility]) Blood Pressure Kit - Blood Pressure Kit - 07/22/2020 12:00:00 AM EDT active Blood Pressure Kit - eCW1 ([facility]) Blood Pressure Kit - Blood Pressure Kit - 07/22/2020 12:00:00 AM EDT active Blood Pressure Kit - eCW1 ([facility]) Blood Pressure Kit - Blood Pressure Kit - 07/22/2020 12:00:00 AM EDT active Blood Pressure Kit - eCW1 ([facility]) Blood Pressure Kit - Blood Pressure Kit - 07/22/2020 12:00:00 AM EDT active Blood Pressure Kit - eCW1 ([facility]) Blood Pressure Kit - Blood Pressure Kit - 07/22/2020 12:00:00 AM EDT active Blood Pressure Kit - eCW1 ([facility]) Spironolactone 25 MG Oral Tablet spironolactone (ALDAC TONE) 25 MG tablet spironolactone (ALDACTONE) 25 MG tablet 07/06/2020 12:00:00 AM EDT 25 mg Oral active Benign essential hypertension Take 1 tablet (25 mg total) by mouth daily [facility] Benign essential hypertension Losartan Potassium 100 MG Oral Tablet losartan (COZAAR ) 100 MG tablet losartan (COZAAR) 100 MG tablet 07/06/2020 12:00:00 AM EDT 100 mg Oral active Benign essential hypertension Take 1 tablet (100 mg total) b y mouth daily [facility] Benign essential hypertension empagliflozin 10 MG Oral Tablet [Jardiance] Jardiance 10 MG Jardiance 10 MG 07/05/2020 12:00:00 AM EDT 1.0 {tablet} active Jardiance 10 MG eCW1 ([facility]) empagliflozin 10 MG Oral Tablet [Jardiance] Jardiance 10 MG Jardiance 10 MG 07/05/2020 12:00:00 AM EDT 1.0 {tablet} active Jardiance 10 MG eCW1 ([facility]) empagliflozin 10 MG Oral Tablet [Jardiance] Jardiance 10 MG Jardiance 10 MG 07/05/2020 12:00:00 AM EDT 1.0 {tablet} active Jardiance 10 MG eCW1 ([facility]) empagliflozin 10 MG Oral Tablet [Jardiance] Jardiance 10 MG Jardiance 10 MG 07/05/2020 12:00:00 AM EDT 1.0 {tablet} active Jardiance 10 MG eCW1 ([facility]) empagliflozin 10 MG Oral Tablet [Jardiance] Jardiance 10 MG Jardiance 10 MG 07/05/2020 12:00:00 AM EDT 1.0 {tablet} active Jardiance 10 MG eCW1 ([facility]) empagliflozin 10 MG Oral Tablet [Jardiance] Jardiance 10 MG Jardiance 10 MG 07/05/2020 12:00:00 AM EDT 1.0 {tablet} active Jardiance 10 MG eCW1 ([facility]) empagliflozin 10 MG Oral Tablet [Jardiance] Jardiance 10 MG Jardiance 10 MG 07/05/2020 12:00:00 AM EDT 1.0 {tablet} active Jardiance 10 MG eCW1 ([facility]) empagliflozin 10 MG Oral Tablet [Jardiance] Jardiance 10 MG Jardiance 10 MG 07/05/2020 12:00:00 AM EDT 1.0 {tablet} active Jardiance 10 MG eCW1 ([facility]) empagliflozin 10 MG Oral Tablet [Jardiance] Jardiance 10 MG Jardiance 10 MG 07/05/2020 12:00:00 AM EDT 1.0 {tablet} active Jardiance 10 MG eCW1 ([facility]) empagliflozin 25 MG Oral Tablet [Jardiance] Jardiance 25 MG Jardiance 25 MG 07/05/2020 12:00:00 AM EDT 1.0 {tablet} active Jardiance 25 MG eCW1 ([facility]) empagliflozin 10 MG Oral Tablet [Jardiance] Jardiance 10 MG Jardiance 10 MG 07/05/2020 12:00:00 AM EDT 1.0 {tablet} active Jardiance 10 MG eCW1 ([facility]) empagliflozin 10 MG Oral Tablet [Jardiance] Jardiance 10 MG Jardiance 10 MG 07/05/2020 12:00:00 AM EDT 1.0 {tablet} active Jardiance 10 MG eCW1 ([facility]) empagliflozin 25 MG Oral Tablet [Jardiance] Jardiance 25 MG Jardiance 25 MG 07/05/2020 12:00:00 AM EDT 1.0 {tablet} active Jardiance 25 MG eCW1 ([facility]) empagliflozin 10 MG Oral Tablet [Jardiance] Jardiance 10 MG Jardiance 10 MG 07/05/2020 12:00:00 AM EDT 1.0 {tablet} active Jardiance 10 MG eCW1 ([facility]) empagliflozin 10 MG Oral Tablet [Jardiance] Jardiance 10 MG Jardiance 10 MG 07/05/2020 12:00:00 AM EDT 1.0 {tablet} active Jardiance 10 MG eCW1 ([facility]) empagliflozin 10 MG Oral Tablet [Jardiance] Jardiance 10 MG Jardiance 10 MG 07/05/2020 12:00:00 AM EDT 1.0 {tablet} active Jardiance 10 MG eCW1 ([facility]) empagliflozin 10 MG Oral Tablet [Jardiance] Jardiance 10 MG Jardiance 10 MG 07/05/2020 12:00:00 AM EDT 1.0 {tablet} active Jardiance 10 MG eCW1 ([facility]) empagliflozin 10 MG Oral Tablet [Jardiance] Jardiance 10 MG Jardiance 10 MG 07/05/2020 12:00:00 AM EDT 1.0 {tablet} active Jardiance 10 MG eCW1 ([facility]) empagliflozin 10 MG Oral Tablet [Jardiance] Jardiance 10 MG Jardiance 10 MG 07/05/2020 12:00:00 AM EDT 1.0 {tablet} active Jardiance 10 MG eCW1 ([facility]) empagliflozin 10 MG Oral Tablet [Jardiance] Jardiance 10 MG Jardiance 10 MG 07/05/2020 12:00:00 AM EDT 1.0 {tablet} active Jardiance 10 MG eCW1 ([facility]) empagliflozin 10 MG Oral Tablet [Jardiance] Jardiance 10 MG Jardiance 10 MG 07/05/2020 12:00:00 AM EDT 1.0 {tablet} active Jardiance 10 MG eCW1 ([facility]) empagliflozin 10 MG Oral Tablet [Jardiance] Jardiance 10 MG Jardiance 10 MG 07/05/2020 12:00:00 AM EDT 1.0 {tablet} active Jardiance 10 MG eCW1 ([facility]) empagliflozin 10 MG Oral Tablet [Jardiance] Jardiance 10 MG Jardiance 10 MG 07/05/2020 12:00:00 AM EDT 1.0 {tablet} active Jardiance 10 MG eCW1 ([facility]) empagliflozin 10 MG Oral Tablet [Jardiance] Jardiance 10 MG Jardiance 10 MG 07/05/2020 12:00:00 AM EDT 1.0 {tablet} active Jardiance 10 MG eCW1 ([facility]) empagliflozin 10 MG Oral Tablet [Jardiance] Jardiance 10 MG Jardiance 10 MG 07/05/2020 12:00:00 AM EDT 1.0 {tablet} active Jardiance 10 MG eCW1 ([facility]) empagliflozin 10 MG Oral Tablet [Jardiance] Jardiance 10 MG Jardiance 10 MG 07/05/2020 12:00:00 AM EDT 1.0 {tablet} active Jardiance 10 MG eCW1 ([facility]) empagliflozin 10 MG Oral Tablet [Jardiance] Jardiance 10 MG Jardiance 10 MG 07/05/2020 12:00:00 AM EDT 1.0 {tablet} active Jardiance 10 MG eCW1 ([facility]) empagliflozin 10 MG Oral Tablet [Jardiance] Jardiance 10 MG Jardiance 10 MG 07/05/2020 12:00:00 AM EDT 1.0 {tablet} active Jardiance 10 MG eCW1 ([facility]) empagliflozin 10 MG Oral Tablet [Jardiance] Jardiance 10 MG Jardiance 10 MG 07/05/2020 12:00:00 AM EDT 1.0 {tablet} active Jardiance 10 MG eCW1 ([facility]) empagliflozin 10 MG Oral Tablet [Jardiance] Jardiance 10 MG Jardiance 10 MG 07/05/2020 12:00:00 AM EDT 1.0 {tablet} active Jardiance 10 MG eCW1 ([facility]) torsemide 10 MG Oral Tablet torsemide (DEMADEX) 10 MG tablet torsemide (DEMADEX) 10 MG tablet 06/08/2020 12:00:00 AM EDT 10 mg Oral acti ve Take 1 tablet (10 mg total) by mouth daily [facility] Losartan Potassium 50 MG Oral Tablet losartan (COZAAR) 50 MG tablet losartan (COZAAR) 50 MG tablet 06/08/2020 12:00:00 AM EDT 75 mg Oral aborted Benign essential hypertensionCongestive heart failure, unspecified HF chronicity, unspecified heart failure type Take 1.5 tablets (75 mg total ) by mouth daily [facility] Benign essential hypertension Congestive heart failure, unspecified HF chronicity, unspecified heart failure type Acetaminophen 325 MG / Hydrocodone Brielle trate 5 MG Oral Tablet Hydrocodone- Acetaminophen 5-325 MG Hydrocodone-Acetaminophen 5-325 MG 06/07/2020 12:00:00 AM EDT 1.0 {tablet_as_needed} active Hydrocodone-Acetaminophen 5-325 MG eCW1 ([facility]) Acetaminophen 325 MG / Hydrocodone Brielle trate 5 MG Oral Tablet Hydrocodone- Acetaminophen 5-325 MG Hydrocodone-Acetaminophen 5-325 MG 06/07/2020 12:00:00 AM EDT 1.0 {tablet_as_needed} active Hydrocodone-Acetaminophen 5-325 MG eCW1 ([facility]) Acetaminophen 325 MG / Hydrocodone Brielle trate 5 MG Oral Tablet Hydrocodone- Acetaminophen 5-325 MG Hydrocodone-Acetaminophen 5-325 MG 06/07/2020 12:00:00 AM EDT 1.0 {tablet_as_needed} active Hydrocodone-Acetaminophen 5-325 MG eCW1 ([facility]) Acetaminophen 325 MG / Hydrocodone Brielle trate 5 MG Oral Tablet Hydrocodone- Acetaminophen 5-325 MG Hydrocodone-Acetaminophen 5-325 MG 06/07/2020 12:00:00 AM EDT 1.0 {tablet_as_needed} active Hydrocodone-Acetaminophen 5-325 MG eCW1 ([facility]) 24 HR Metformin hydrochloride 500 MG Ext ended Release Oral Tablet metFORMIN (GLUCOPHATE-XR) 500 MG 24 hr tablet metFORMIN (GLUCOPHATE-XR) 500 MG 24 hr tablet 06/07/2020 12:00:00 AM EDT aborted [facility] empagliflozin 10 MG Oral Tablet [Jardiance] JARDIANCE 10 MG TABS JARDIANCE 10 MG TABS 06/07/2020 12:00:00 AM EDT aborted [facility] Acetaminophen 325 MG / Hydrocodone Brielle trate 5 MG Oral Tablet Hydrocodone- Acetaminophen 5-325 MG Hydrocodone-Acetaminophen 5-325 MG 06/07/2020 12:00:00 AM EDT 1.0 {tablet_as_needed} active Hydrocodone-Acetaminophen 5-325 MG eCW1 ([facility]) Acetaminophen 325 MG / Hydrocodone Brielle trate 5 MG Oral Tablet Hydrocodone- Acetaminophen 5-325 MG Hydrocodone-Acetaminophen 5-325 MG 06/07/2020 12:00:00 AM EDT 1.0 {tablet_as_needed} active Hydrocodone-Acetaminophen 5-325 MG eCW1 ([facility]) Acetaminophen 325 MG / Hydrocodone Brielle trate 5 MG Oral Tablet Hydrocodone- Acetaminophen 5-325 MG Hydrocodone-Acetaminophen 5-325 MG 06/07/2020 12:00:00 AM EDT 1.0 {tablet_as_needed} active Hydrocodone-Acetaminophen 5-325 MG eCW1 ([facility]) Acetaminophen 325 MG / Hydrocodone Brielle trate 5 MG Oral Tablet Hydrocodone- Acetaminophen 5-325 MG Hydrocodone-Acetaminophen 5-325 MG 06/07/2020 12:00:00 AM EDT 1.0 {tablet_as_needed} active Hydrocodone-Acetaminophen 5-325 MG eCW1 ([facility]) Acetaminophen 325 MG / Hydrocodone Brielle trate 5 MG Oral Tablet Hydrocodone- Acetaminophen 5-325 MG Hydrocodone-Acetaminophen 5-325 MG 06/07/2020 12:00:00 AM EDT 1.0 {tablet_as_needed} active Hydrocodone-Acetaminophen 5-325 MG eCW1 ([facility]) Acetaminophen 325 MG / Hydrocodone Brielle trate 5 MG Oral Tablet Hydrocodone- Acetaminophen 5-325 MG Hydrocodone-Acetaminophen 5-325 MG 06/07/2020 12:00:00 AM EDT 1.0 {tablet_as_needed} active Hydrocodone-Acetaminophen 5-325 MG eCW1 ([facility]) Acetaminophen 325 MG / Hydrocodone Brielle trate 5 MG Oral Tablet Hydrocodone- Acetaminophen 5-325 MG Hydrocodone-Acetaminophen 5-325 MG 06/07/2020 12:00:00 AM EDT 1.0 {tablet_as_needed} active Hydrocodone-Acetaminophen 5-325 MG eCW1 ([facility]) Acetaminophen 325 MG / Hydrocodone Brielle trate 5 MG Oral Tablet Hydrocodone- Acetaminophen 5-325 MG Hydrocodone-Acetaminophen 5-325 MG 06/07/2020 12:00:00 AM EDT 1.0 {tablet_as_needed} active Hydrocodone-Acetaminophen 5-325 MG eCW1 ([facility]) Acetaminophen 325 MG / Hydrocodone Brielle trate 5 MG Oral Tablet Hydrocodone- Acetaminophen 5-325 MG Hydrocodone-Acetaminophen 5-325 MG 06/07/2020 12:00:00 AM EDT 1.0 {tablet_as_needed} active Hydrocodone-Acetaminophen 5-325 MG eCW1 ([facility]) Acetaminophen 325 MG / Hydrocodone Brielle trate 5 MG Oral Tablet Hydrocodone- Acetaminophen 5-325 MG Hydrocodone-Acetaminophen 5-325 MG 06/07/2020 12:00:00 AM EDT 1.0 {tablet_as_needed} active Hydrocodone-Acetaminophen 5-325 MG eCW1 ([facility]) Acetaminophen 325 MG / Hydrocodone Brielle trate 5 MG Oral Tablet Hydrocodone- Acetaminophen 5-325 MG Hydrocodone-Acetaminophen 5-325 MG 06/07/2020 12:00:00 AM EDT 1.0 {tablet_as_needed} active Hydrocodone-Acetaminophen 5-325 MG eCW1 ([facility]) Levothyroxine Sodium 0.025 MG Oral Tablet Levothyroxin e Sodium 25 MCG Levothyroxine Sodium 25 MCG 06/03/2020 12:00:00 AM EDT active Levothyroxine Sodium 25 MCG eCW1 ([facility]) Levothyroxine Sodium 0.025 MG Oral Tablet Levothyroxin e Sodium 25 MCG Levothyroxine Sodium 25 MCG 06/03/2020 12:00:00 AM EDT active Levothyroxine Sodium 25 MCG eCW1 ([facility]) Levothyroxine Sodium 0.025 MG Oral Tablet Levothyroxin e Sodium 25 MCG Levothyroxine Sodium 25 MCG 06/03/2020 12:00:00 AM EDT active Levothyroxine Sodium 25 MCG eCW1 ([facility]) Levothyroxine Sodium 0.025 MG Oral Tablet Levothyroxin e Sodium 25 MCG Levothyroxine Sodium 25 MCG 06/03/2020 12:00:00 AM EDT active Levothyroxine Sodium 25 MCG eCW1 ([facility]) Levothyroxine Sodium 0.025 MG Oral Tablet Levothyroxin e Sodium 25 MCG Levothyroxine Sodium 25 MCG 06/03/2020 12:00:00 AM EDT active Levothyroxine Sodium 25 MCG eCW1 ([facility]) Levothyroxine Sodium 0.025 MG Oral Tablet Levothyroxin e Sodium 25 MCG Levothyroxine Sodium 25 MCG 06/03/2020 12:00:00 AM EDT active Levothyroxine Sodium 25 MCG eCW1 ([facility]) Levothyroxine Sodium 0.025 MG Oral Tablet Levothyroxin e Sodium 25 MCG Levothyroxine Sodium 25 MCG 06/03/2020 12:00:00 AM EDT active Levothyroxine Sodium 25 MCG eCW1 ([facility]) Levothyroxine Sodium 0.025 MG Oral Tablet Levothyroxin e Sodium 25 MCG Levothyroxine Sodium 25 MCG 06/03/2020 12:00:00 AM EDT active Levothyroxine Sodium 25 MCG eCW1 ([facility]) Levothyroxine Sodium 0.025 MG Oral Tablet Levothyroxin e Sodium 25 MCG Levothyroxine Sodium 25 MCG 06/03/2020 12:00:00 AM EDT active Levothyroxine Sodium 25 MCG eCW1 ([facility]) Levothyroxine Sodium 0.025 MG Oral Tablet Levothyroxin e Sodium 25 MCG Levothyroxine Sodium 25 MCG 06/03/2020 12:00:00 AM EDT active Levothyroxine Sodium 25 MCG eCW1 ([facility]) Levothyroxine Sodium 0.025 MG Oral Tablet Levothyroxin e Sodium 25 MCG Levothyroxine Sodium 25 MCG 06/03/2020 12:00:00 AM EDT active Levothyroxine Sodium 25 MCG eCW1 ([facility]) Levothyroxine Sodium 0.025 MG Oral Tablet Levothyroxin e Sodium 25 MCG Levothyroxine Sodium 25 MCG 06/03/2020 12:00:00 AM EDT active Levothyroxine Sodium 25 MCG eCW1 ([facility]) Levothyroxine Sodium 0.025 MG Oral Tablet Levothyroxin e Sodium 25 MCG Levothyroxine Sodium 25 MCG 06/03/2020 12:00:00 AM EDT active Levothyroxine Sodium 25 MCG eCW1 ([facility]) Levothyroxine Sodium 0.025 MG Oral Tablet Levothyroxin e Sodium 25 MCG Levothyroxine Sodium 25 MCG 06/03/2020 12:00:00 AM EDT active Levothyroxine Sodium 25 MCG eCW1 ([facility]) Levothyroxine Sodium 0.025 MG Oral Tablet Levothyroxin e Sodium 25 MCG Levothyroxine Sodium 25 MCG 06/03/2020 12:00:00 AM EDT active Levothyroxine Sodium 25 MCG eCW1 ([facility]) Levothyroxine Sodium 0.025 MG Oral Tablet Levothyroxin e Sodium 25 MCG Levothyroxine Sodium 25 MCG 06/03/2020 12:00:00 AM EDT active Levothyroxine Sodium 25 MCG eCW1 ([facility]) Levothyroxine Sodium 0.025 MG Oral Tablet Levothyroxin e Sodium 25 MCG Levothyroxine Sodium 25 MCG 06/03/2020 12:00:00 AM EDT active Levothyroxine Sodium 25 MCG eCW1 ([facility]) Levothyroxine Sodium 0.025 MG Oral Tablet Levothyroxin e Sodium 25 MCG Levothyroxine Sodium 25 MCG 06/03/2020 12:00:00 AM EDT active Levothyroxine Sodium 25 MCG eCW1 ([facility]) Levothyroxine Sodium 0.025 MG Oral Tablet Levothyroxin e Sodium 25 MCG Levothyroxine Sodium 25 MCG 06/03/2020 12:00:00 AM EDT active Levothyroxine Sodium 25 MCG eCW1 ([facility]) Levothyroxine Sodium 0.025 MG Oral Tablet Levothyroxin e Sodium 25 MCG Levothyroxine Sodium 25 MCG 06/03/2020 12:00:00 AM EDT active Levothyroxine Sodium 25 MCG eCW1 ([facility]) Levothyroxine Sodium 0.025 MG Oral Tablet Levothyroxin e Sodium 25 MCG Levothyroxine Sodium 25 MCG 06/03/2020 12:00:00 AM EDT active Levothyroxine Sodium 25 MCG eCW1 ([facility]) Levothyroxine Sodium 0.025 MG Oral Tablet Levothyroxin e Sodium 25 MCG Levothyroxine Sodium 25 MCG 06/03/2020 12:00:00 AM EDT active Levothyroxine Sodium 25 MCG eCW1 ([facility]) Levothyroxine Sodium 0.025 MG Oral Tablet Levothyroxin e Sodium 25 MCG Levothyroxine Sodium 25 MCG 06/03/2020 12:00:00 AM EDT active Levothyroxine Sodium 25 MCG eCW1 ([facility]) Levothyroxine Sodium 0.025 MG Oral Tablet Levothyroxin e Sodium 25 MCG Levothyroxine Sodium 25 MCG 06/03/2020 12:00:00 AM EDT active Levothyroxine Sodium 25 MCG eCW1 ([facility]) Levothyroxine Sodium 0.025 MG Oral Tablet Levothyroxin e Sodium 25 MCG Levothyroxine Sodium 25 MCG 06/03/2020 12:00:00 AM EDT active Levothyroxine Sodium 25 MCG eCW1 ([facility]) Levothyroxine Sodium 0.025 MG Oral Tablet Levothyroxin e Sodium 25 MCG Levothyroxine Sodium 25 MCG 06/03/2020 12:00:00 AM EDT active Levothyroxine Sodium 25 MCG eCW1 ([facility]) Levothyroxine Sodium 0.025 MG Oral Tablet Levothyroxin e Sodium 25 MCG Levothyroxine Sodium 25 MCG 06/03/2020 12:00:00 AM EDT active Levothyroxine Sodium 25 MCG eCW1 ([facility]) Losartan Potassium 50 MG Oral Tablet Losartan Potassium 50 M G 05/17/2020 12:00:00 AM EDT 1.5 {tablets} active L osartan Potassium 50 MG eCW1 ([facility]) Losartan Potassium 50 MG Oral Tablet Losartan Potassium 50 M G 05/17/2020 12:00:00 AM EDT active Losartan Potassium 50 MG eCW1 ([facility]) Losartan Potassium 50 MG Oral Tablet Losartan Potassium 50 M G 05/17/2020 12:00:00 AM EDT 1.5 {tablets} active L osartan Potassium 50 MG eCW1 ([facility]) Losartan Potassium 100 MG Oral Tablet Losartan Potassium 100 MG 05/17/2020 12:00:00 AM EDT 1.0 {tablet} active Lo sartan Potassium 100 MG eCW1 ([facility]) Losartan Potassium 50 MG Oral Tablet Losartan Potassium 50 M G 05/17/2020 12:00:00 AM EDT active Losartan Potassium 50 MG eCW1 ([facility]) Losartan Potassium 50 MG Oral Tablet Losartan Potassium 50 M G 05/17/2020 12:00:00 AM EDT 1.5 {tablets} active L osartan Potassium 50 MG eCW1 ([facility]) Losartan Potassium 100 MG Oral Tablet Losartan Potassium 100 MG 05/17/2020 12:00:00 AM EDT 1.0 {tablet} active Lo sartan Potassium 100 MG eCW1 ([facility]) Losartan Potassium 50 MG Oral Tablet Losartan Potassium 50 M G 05/17/2020 12:00:00 AM EDT active Losartan Potassium 50 MG eCW1 ([facility]) Losartan Potassium 50 MG Oral Tablet losartan (COZAAR) 50 MG tablet losartan (COZAAR) 50 MG tablet 05/17/2020 12:00:00 AM EDT a [facility] Losartan Potassium 100 MG Oral Tablet Losartan Potassium 100 MG 05/17/2020 12:00:00 AM EDT 1.0 {tablet} active Lo sartan Potassium 100 MG eCW1 ([facility]) Losartan Potassium 50 MG Oral Tablet Losartan Potassium 50 M G 05/17/2020 12:00:00 AM EDT active Losartan Potassium 50 MG eCW1 ([facility]) Losartan Potassium 100 MG Oral Tablet Losartan Potassium 100 MG 05/17/2020 12:00:00 AM EDT 1.0 {tablet} active Lo sartan Potassium 100 MG eCW1 ([facility]) Losartan Potassium 50 MG Oral Tablet Losartan Potassium 50 M G 05/17/2020 12:00:00 AM EDT active Losartan Potassium 50 MG eCW1 ([facility]) Losartan Potassium 50 MG Oral Tablet Losartan Potassium 50 M G 05/17/2020 12:00:00 AM EDT active Losartan Potassium 50 MG eCW1 ([facility]) Losartan Potassium 50 MG Oral Tablet Losartan Potassium 50 M G 05/17/2020 12:00:00 AM EDT 1.5 {tablets} active L osartan Potassium 50 MG eCW1 ([facility]) Losartan Potassium 50 MG Oral Tablet Losartan Potassium 50 M G 05/17/2020 12:00:00 AM EDT 1.5 {tablets} active L osartan Potassium 50 MG eCW1 ([facility]) Losartan Potassium 50 MG Oral Tablet Losartan Potassium 50 M G 05/17/2020 12:00:00 AM EDT active Losartan Potassium 50 MG eCW1 ([facility]) Losartan Potassium 50 MG Oral Tablet Losartan Potassium 50 M G 05/17/2020 12:00:00 AM EDT active Losartan Potassium 50 MG eCW1 ([facility]) Losartan Potassium 50 MG Oral Tablet Losartan Potassium 50 M G 05/17/2020 12:00:00 AM EDT active Losartan Potassium 50 MG eCW1 ([facility]) Losartan Potassium 100 MG Oral Tablet Losartan Potassium 100 MG 05/17/2020 12:00:00 AM EDT 1.0 {tablet} active Lo sartan Potassium 100 MG eCW1 ([facility]) Losartan Potassium 50 MG Oral Tablet Losartan Potassium 50 M G 05/17/2020 12:00:00 AM EDT active Losartan Potassium 50 MG eCW1 ([facility]) Losartan Potassium 50 MG Oral Tablet Losartan Potassium 50 M G 05/17/2020 12:00:00 AM EDT active Losartan Potassium 50 MG eCW1 ([facility]) Losartan Potassium 100 MG Oral Tablet Losartan Potassium 100 MG 05/17/2020 12:00:00 AM EDT 1.0 {tablet} active Lo sartan Potassium 100 MG eCW1 ([facility]) Losartan Potassium 50 MG Oral Tablet Losartan Potassium 50 M G 05/17/2020 12:00:00 AM EDT active Losartan Potassium 50 MG eCW1 ([facility]) Losartan Potassium 50 MG Oral Tablet Losartan Potassium 50 M G 05/17/2020 12:00:00 AM EDT active Losartan Potassium 50 MG eCW1 ([facility]) Losartan Potassium 50 MG Oral Tablet Losartan Potassium 50 M G 05/17/2020 12:00:00 AM EDT active Losartan Potassium 50 MG eCW1 ([facility]) Losartan Potassium 50 MG Oral Tablet Losartan Potassium 50 M G 05/17/2020 12:00:00 AM EDT active Losartan Potassium 50 MG eCW1 ([facility]) Losartan Potassium 50 MG Oral Tablet Losartan Potassium 50 M G 05/17/2020 12:00:00 AM EDT active Losartan Potassium 50 MG eCW1 ([facility]) Losartan Potassium 50 MG Oral Tablet Losartan Potassium 50 M G 05/17/2020 12:00:00 AM EDT 1.5 {tablets} active L osartan Potassium 50 MG eCW1 ([facility]) Losartan Potassium 50 MG Oral Tablet Losartan Potassium 50 M G 05/17/2020 12:00:00 AM EDT active Losartan Potassium 50 MG eCW1 ([facility]) Losartan Potassium 50 MG Oral Tablet Losartan Potassium 50 M G 05/17/2020 12:00:00 AM EDT active Losartan Potassium 50 MG eCW1 ([facility]) Losartan Potassium 50 MG Oral Tablet Losartan Potassium 50 M G 05/17/2020 12:00:00 AM EDT active Losartan Potassium 50 MG eCW1 ([facility]) Losartan Potassium 50 MG Oral Tablet Losartan Potassium 50 M G 05/17/2020 12:00:00 AM EDT active Losartan Potassium 50 MG eCW1 ([facility]) Losartan Potassium 100 MG Oral Tablet Losartan Potassium 100 MG 05/17/2020 12:00:00 AM EDT 1.0 {tablet} active Lo sartan Potassium 100 MG eCW1 ([facility]) Losartan Potassium 50 MG Oral Tablet Losartan Potassium 50 M G 05/17/2020 12:00:00 AM EDT active Losartan Potassium 50 MG eCW1 ([facility]) Losartan Potassium 100 MG Oral Tablet Losartan Potassium 100 MG 05/17/2020 12:00:00 AM EDT 1.0 {tablet} active Lo sartan Potassium 100 MG eCW1 ([facility]) Losartan Potassium 100 MG Oral Tablet Losartan Potassium 100 MG 05/17/2020 12:00:00 AM EDT 1.0 {tablet} active Lo sartan Potassium 100 MG eCW1 ([facility]) Losartan Potassium 50 MG Oral Tablet Losartan Potassium 50 M G 05/17/2020 12:00:00 AM EDT active Losartan Potassium 50 MG eCW1 ([facility]) Losartan Potassium 100 MG Oral Tablet Losartan Potassium 100 MG 05/17/2020 12:00:00 AM EDT 1.0 {tablet} active Lo sartan Potassium 100 MG eCW1 ([facility]) Losartan Potassium 100 MG Oral Tablet Losartan Potassium 100 MG 05/17/2020 12:00:00 AM EDT 1.0 {tablet} active Lo sartan Potassium 100 MG eCW1 ([facility]) Losartan Potassium 100 MG Oral Tablet Losartan Potassium 100 MG 05/17/2020 12:00:00 AM EDT 1.0 {tablet} active Lo sartan Potassium 100 MG eCW1 ([facility]) Acetaminophen 325 MG / Hydrocodone Brielle trate 5 MG Oral Tablet Hydrocodone- Acetaminophen 5-325 MG Hydrocodone-Acetaminophen 5-325 MG 05/12/2020 12:00:00 AM EDT 1.0 {tablet_as_needed} active Hydrocodone-Acetaminophen 5-325 MG eCW1 ([facility]) Acetaminophen 325 MG / Hydrocodone Brielle trate 5 MG Oral Tablet Hydrocodone- Acetaminophen 5-325 MG Hydrocodone-Acetaminophen 5-325 MG 05/12/2020 12:00:00 AM EDT 1.0 {tablet_as_needed} active Hydrocodone-Acetaminophen 5-325 MG eCW1 ([facility]) Acetaminophen 325 MG / Hydrocodone Brielle trate 5 MG Oral Tablet Hydrocodone- Acetaminophen 5-325 MG Hydrocodone-Acetaminophen 5-325 MG 05/12/2020 12:00:00 AM EDT 1.0 {tablet_as_needed} active Hydrocodone-Acetaminophen 5-325 MG eCW1 ([facility]) Acetaminophen 325 MG / Hydrocodone Brielle trate 5 MG Oral Tablet Hydrocodone- Acetaminophen 5-325 MG Hydrocodone-Acetaminophen 5-325 MG 05/12/2020 12:00:00 AM EDT 1.0 {tablet_as_needed} active Hydrocodone-Acetaminophen 5-325 MG eCW1 ([facility]) empagliflozin 10 MG Oral Tablet [Jardiance] Jardiance 10 MG Jardiance 10 MG 04/21/2020 12:00:00 AM EST 1.0 {tablet} active Jardiance 10 MG eCW1 ([facility]) empagliflozin 10 MG Oral Tablet [Jardiance] Jardiance 10 MG Jardiance 10 MG 04/21/2020 12:00:00 AM EST 1.0 {tablet} active Jardiance 10 MG eCW1 ([facility]) empagliflozin 10 MG Oral Tablet [Jardiance] Jardiance 10 MG Jardiance 10 MG 04/21/2020 12:00:00 AM EST 1.0 {tablet} active Jardiance 10 MG eCW1 ([facility]) empagliflozin 10 MG Oral Tablet [Jardiance] Jardiance 10 MG Jardiance 10 MG 04/21/2020 12:00:00 AM EST 1.0 {tablet} active Jardiance 10 MG eCW1 ([facility]) empagliflozin 10 MG Oral Tablet [Jardiance] Jardiance 10 MG Jardiance 10 MG 04/21/2020 12:00:00 AM EST 1.0 {tablet} active Jardiance 10 MG eCW1 ([facility]) carvedilol 6.25 MG Oral Tablet carvedilol (COREG) 6.25 MG tablet carvedilol (COREG) 6.25 MG tablet 04/15/2020 12:00:00 AM EST 6.25 mg Oral aborted Take 1 tablet (6.25 mg total) by mouth 2 (two) times a day [facility] Acetaminophen 325 MG / Hydrocodone Brielle trate 5 MG Oral Tablet Hydrocodone- Acetaminophen 5-325 MG Hydrocodone-Acetaminophen 5-325 MG 04/11/2020 12:00:00 AM EST 1.0 {tablet_as_needed} active Hydrocodone-Acetaminophen 5-325 MG eCW1 ([facility]) Acetaminophen 325 MG / Hydrocodone Brielle trate 5 MG Oral Tablet Hydrocodone- Acetaminophen 5-325 MG Hydrocodone-Acetaminophen 5-325 MG 04/11/2020 12:00:00 AM EST 1.0 {tablet_as_needed} active Hydrocodone-Acetaminophen 5-325 MG eCW1 ([facility]) Acetaminophen 325 MG / Hydrocodone Brielle trate 5 MG Oral Tablet Hydrocodone- Acetaminophen 5-325 MG Hydrocodone-Acetaminophen 5-325 MG 04/11/2020 12:00:00 AM EST 1.0 {tablet_as_needed} active Hydrocodone-Acetaminophen 5-325 MG eCW1 ([facility]) Acetaminophen 325 MG / Hydrocodone Brielle trate 5 MG Oral Tablet Hydrocodone- Acetaminophen 5-325 MG Hydrocodone-Acetaminophen 5-325 MG 04/11/2020 12:00:00 AM EST 1.0 {tablet_as_needed} active Hydrocodone-Acetaminophen 5-325 MG eCW1 ([facility]) Acetaminophen 325 MG / Hydrocodone Brielle trate 5 MG Oral Tablet Hydrocodone- Acetaminophen 5-325 MG Hydrocodone-Acetaminophen 5-325 MG 04/11/2020 12:00:00 AM EST 1.0 {tablet_as_needed} active Hydrocodone-Acetaminophen 5-325 MG eCW1 ([facility]) Acetaminophen 325 MG / Hydrocodone Brielle trate 5 MG Oral Tablet Hydrocodone- Acetaminophen 5-325 MG Hydrocodone-Acetaminophen 5-325 MG 04/11/2020 12:00:00 AM EST 1.0 {tablet_as_needed} active Hydrocodone-Acetaminophen 5-325 MG eCW1 ([facility]) Acetaminophen 325 MG / Hydrocodone Brielle trate 5 MG Oral Tablet Hydrocodone- Acetaminophen 5-325 MG Hydrocodone-Acetaminophen 5-325 MG 04/11/2020 12:00:00 AM EST 1.0 {tablet_as_needed} active Hydrocodone-Acetaminophen 5-325 MG eCW1 ([facility]) Amlodipine 2.5 MG Oral Tablet AmLODIPine Besylate 2.5 MG AmLODIPine Besylate 2.5 MG 04/04/2020 12:00:00 AM EST 1.0 {tablet} activ e AmLODIPine Besylate 2.5 MG eCW1 ([facility]) Amlodipine 2.5 MG Oral Tablet AmLODIPine Besylate 2.5 MG AmLODIPine Besylate 2.5 MG 04/04/2020 12:00:00 AM EST 1.0 {tablet} activ e AmLODIPine Besylate 2.5 MG eCW1 ([facility]) Amlodipine 2.5 MG Oral Tablet AmLODIPine Besylate 2.5 MG AmLODIPine Besylate 2.5 MG 04/04/2020 12:00:00 AM EST 1.0 {tablet} activ e AmLODIPine Besylate 2.5 MG eCW1 ([facility]) Amlodipine 2.5 MG Oral Tablet AmLODIPine Besylate 2.5 MG AmLODIPine Besylate 2.5 MG 04/04/2020 12:00:00 AM EST 1.0 {tablet} activ e AmLODIPine Besylate 2.5 MG eCW1 ([facility]) Amlodipine 2.5 MG Oral Tablet AmLODIPine Besylate 2.5 MG AmLODIPine Besylate 2.5 MG 04/04/2020 12:00:00 AM EST 1.0 {tablet} activ e AmLODIPine Besylate 2.5 MG eCW1 ([facility]) Amlodipine 2.5 MG Oral Tablet AmLODIPine Besylate 2.5 MG AmLODIPine Besylate 2.5 MG 04/04/2020 12:00:00 AM EST 1.0 {tablet} activ e AmLODIPine Besylate 2.5 MG eCW1 ([facility]) Amlodipine 2.5 MG Oral Tablet AmLODIPine Besylate 2.5 MG AmLODIPine Besylate 2.5 MG 04/04/2020 12:00:00 AM EST 1.0 {tablet} activ e AmLODIPine Besylate 2.5 MG eCW1 ([facility]) Amlodipine 2.5 MG Oral Tablet AmLODIPine Besylate 2.5 MG AmLODIPine Besylate 2.5 MG 04/04/2020 12:00:00 AM EST 1.0 {tablet} activ e AmLODIPine Besylate 2.5 MG eCW1 ([facility]) Amlodipine 2.5 MG Oral Tablet amLODIPine (NORVASC) 2.5 MG tablet amLODIPine (NORVASC) 2.5 MG tablet 04/04/2020 12:00:00 AM EST 5 mg Oral aborted Take 5 mg by mouth daily [facility] Amlodipine 2.5 MG Oral Tablet AmLODIPine Besylate 2.5 MG AmLODIPine Besylate 2.5 MG 04/04/2020 12:00:00 AM EST 1.0 {tablet} activ e AmLODIPine Besylate 2.5 MG eCW1 ([facility]) Potassium Chloride 10 MEQ Extended Relea se Oral Tablet potassium chloride (K- DUR) 10 MEQ tablet potassium chloride (K-DUR) 10 MEQ tablet 04/02/2020 12 :00:00 AM EST aborted [facility] 24 HR Metformin hydrochloride 500 MG Ext ended Release Oral Tablet metFORMIN (GLUCOPHATE-XR) 500 MG 24 hr tablet metFORMIN (GLUCOPHATE-XR) 500 MG 24 hr tablet 03/19/2020 12:00:00 AM EST aborted [facility] Sucralfate 1000 MG Oral Tablet [Carafate] Carafate 1 GM Brooke fate 1 GM 03/08/2020 12:00:00 AM EST 1.0 {tablet_on_an_empty_stomach} active Carafate 1 GM W1 ([facility]) Sucralfate 1000 MG Oral Tablet [Carafate] Carafate 1 GM Brooke fate 1 GM 03/08/2020 12:00:00 AM EST 1.0 {tablet_on_an_empty_stomach} active Carafate [address] [facility] ([facility]) Sucralfate 1000 MG Oral Tablet [Carafate] Carafate 1 GM Brooke fate 1 GM 03/08/2020 12:00:00 AM EST 1.0 {tablet_on_an_empty_stomach} active Carafate 1 GM W1 ([facility]) Sucralfate 1000 MG Oral Tablet [Carafate] Carafate 1 GM Brooke fate 1 GM 03/08/2020 12:00:00 AM EST 1.0 {tablet_on_an_empty_stomach} active Carafate 1 GM W1 ([facility]) Sucralfate 1000 MG Oral Tablet [Carafate] Carafate 1 GM Brooke fate 1 GM 03/08/2020 12:00:00 AM EST 1.0 {tablet_on_an_empty_stomach} active Carafate 1 GM W1 ([facility]) Sucralfate 1000 MG Oral Tablet [Carafate] Carafate 1 GM Brooke fate 1 GM 03/08/2020 12:00:00 AM EST 1.0 {tablet_on_an_empty_stomach} active Carafate 1 GM eCW1 ([facility]) Sucralfate 1000 MG Oral Tablet sucralfate (CARAFATE) 1 g tablet sucralfate (CARAFATE) 1 g tablet 03/08/2020 12:00:00 AM EST 1 g Oral active Take 1 g by mouth 3 (three) times a day [facility] Acetaminophen 325 MG / Hydrocodone Brielle trate 5 MG Oral Tablet Hydrocodone- Acetaminophen 5-325 MG Hydrocodone-Acetaminophen 5-325 MG 02/25/2020 12:00:00 AM EST 1.0 {tablet_as_needed} active Hydrocodone-Acetaminophen 5-325 MG eCW1 ([facility]) Acetaminophen 325 MG / Hydrocodone Brielle trate 5 MG Oral Tablet Hydrocodone- Acetaminophen 5-325 MG Hydrocodone-Acetaminophen 5-325 MG 02/25/2020 12:00:00 AM EST 1.0 {tablet_as_needed} active Hydrocodone-Acetaminophen 5-325 MG eCW1 ([facility]) Acetaminophen 325 MG / Hydrocodone Brielle trate 5 MG Oral Tablet Hydrocodone- Acetaminophen 5-325 MG Hydrocodone-Acetaminophen 5-325 MG 02/25/2020 12:00:00 AM EST 1.0 {tablet_as_needed} active Hydrocodone-Acetaminophen 5-325 MG eCW1 ([facility]) Acetaminophen 325 MG / Hydrocodone Brielle trate 5 MG Oral Tablet Hydrocodone- Acetaminophen 5-325 MG Hydrocodone-Acetaminophen 5-325 MG 02/25/2020 12:00:00 AM EST 1.0 {tablet_as_needed} active Hydrocodone-Acetaminophen 5-325 MG eCW1 ([facility]) Acetaminophen 325 MG / Hydrocodone Brielle trate 5 MG Oral Tablet Hydrocodone- Acetaminophen 5-325 MG Hydrocodone-Acetaminophen 5-325 MG 02/25/2020 12:00:00 AM EST 1.0 {tablet_as_needed} active Hydrocodone-Acetaminophen 5-325 MG eCW1 ([facility]) Acetaminophen 325 MG / Hydrocodone Brielle trate 5 MG Oral Tablet Hydrocodone- Acetaminophen 5-325 MG Hydrocodone-Acetaminophen 5-325 MG 02/25/2020 12:00:00 AM EST 1.0 {tablet_as_needed} active Hydrocodone-Acetaminophen 5-325 MG eCW1 ([facility]) Acetaminophen 325 MG / Hydrocodone Brielle trate 5 MG Oral Tablet Hydrocodone- Acetaminophen 5-325 MG Hydrocodone-Acetaminophen 5-325 MG 02/25/2020 12:00:00 AM EST 1.0 {tablet_as_needed} active Hydrocodone-Acetaminophen 5-325 MG eCW1 ([facility]) Acetaminophen 325 MG / Hydrocodone Brielle trate 5 MG Oral Tablet Hydrocodone- Acetaminophen 5-325 MG Hydrocodone-Acetaminophen 5-325 MG 02/25/2020 12:00:00 AM EST 1.0 {tablet_as_needed} active Hydrocodone-Acetaminophen 5-325 MG eCW1 ([facility]) Acetaminophen 325 MG / Hydrocodone Brielle trate 5 MG Oral Tablet Hydrocodone- Acetaminophen 5-325 MG Hydrocodone-Acetaminophen 5-325 MG 02/25/2020 12:00:00 AM EST 1.0 {tablet_as_needed} active Hydrocodone-Acetaminophen 5-325 MG eCW1 ([facility]) Acetaminophen 325 MG / Hydrocodone Brielle trate 5 MG Oral Tablet Hydrocodone- Acetaminophen 5-325 MG Hydrocodone-Acetaminophen 5-325 MG 02/25/2020 12:00:00 AM EST 1.0 {tablet_as_needed} active Hydrocodone-Acetaminophen 5-325 MG eCW1 ([facility]) torsemide 20 MG Oral Tablet Torsemide 20 MG Torsemide 20 MG 02/24/2020 12:00:00 AM EST active Torsemide 20 MG e CW1 ([facility]) torsemide 20 MG Oral Tablet Torsemide 20 MG Torsemide 20 MG 02/24/2020 12:00:00 AM EST active Torsemide 20 MG e CW1 ([facility]) torsemide 10 MG Oral Tablet Torsemide 10 MG Torsemide 10 MG 02/24/2020 12:00:00 AM EST active Torsemide 10 MG e CW1 ([facility]) torsemide 10 MG Oral Tablet Torsemide 10 MG Torsemide 10 MG 02/24/2020 12:00:00 AM EST active Torsemide 10 MG e CW1 ([facility]) torsemide 20 MG Oral Tablet Torsemide 20 MG Torsemide 20 MG 02/24/2020 12:00:00 AM EST active Torsemide 20 MG e CW1 ([facility]) torsemide 20 MG Oral Tablet Torsemide 20 MG Torsemide 20 MG 02/24/2020 12:00:00 AM EST active Torsemide 20 MG e CW1 ([facility]) torsemide 10 MG Oral Tablet Torsemide 10 MG Torsemide 10 MG 02/24/2020 12:00:00 AM EST active Torsemide 10 MG e CW1 ([facility]) torsemide 10 MG Oral Tablet Torsemide 10 MG Torsemide 10 MG 02/24/2020 12:00:00 AM EST active Torsemide 10 MG e CW1 ([facility]) torsemide 20 MG Oral Tablet Torsemide 20 MG Torsemide 20 MG 02/24/2020 12:00:00 AM EST active Torsemide 20 MG e CW1 ([facility]) torsemide 20 MG Oral Tablet Torsemide 20 MG Torsemide 20 MG 02/24/2020 12:00:00 AM EST active Torsemide 20 MG e CW1 ([facility]) torsemide 10 MG Oral Tablet Torsemide 10 MG Torsemide 10 MG 02/24/2020 12:00:00 AM EST active Torsemide 10 MG e CW1 ([facility]) torsemide 10 MG Oral Tablet Torsemide 10 MG Torsemide 10 MG 02/24/2020 12:00:00 AM EST active Torsemide 10 MG e CW1 ([facility]) torsemide 10 MG Oral Tablet Torsemide 10 MG Torsemide 10 MG 02/24/2020 12:00:00 AM EST active Torsemide 10 MG e CW1 ([facility]) torsemide 20 MG Oral Tablet Torsemide 20 MG Torsemide 20 MG 02/24/2020 12:00:00 AM EST active Torsemide 20 MG e CW1 ([facility]) torsemide 10 MG Oral Tablet Torsemide 10 MG Torsemide 10 MG 02/24/2020 12:00:00 AM EST active Torsemide 10 MG e CW1 ([facility]) torsemide 10 MG Oral Tablet Torsemide 10 MG Torsemide 10 MG 02/24/2020 12:00:00 AM EST active Torsemide 10 MG e CW1 ([facility]) torsemide 10 MG Oral Tablet Torsemide 10 MG Torsemide 10 MG 02/24/2020 12:00:00 AM EST active Torsemide 10 MG e CW1 ([facility]) torsemide 10 MG Oral Tablet Torsemide 10 MG Torsemide 10 MG 02/24/2020 12:00:00 AM EST active Torsemide 10 MG e CW1 ([facility]) torsemide 10 MG Oral Tablet Torsemide 10 MG Torsemide 10 MG 02/24/2020 12:00:00 AM EST active Torsemide 10 MG e CW1 ([facility]) torsemide 20 MG Oral Tablet Torsemide 20 MG Torsemide 20 MG 02/24/2020 12:00:00 AM EST active Torsemide 20 MG e CW1 ([facility]) torsemide 20 MG Oral Tablet Torsemide 20 MG Torsemide 20 MG 02/24/2020 12:00:00 AM EST active Torsemide 20 MG e CW1 ([facility]) torsemide 20 MG Oral Tablet Torsemide 20 MG Torsemide 20 MG 02/24/2020 12:00:00 AM EST active Torsemide 20 MG e CW1 ([facility]) torsemide 10 MG Oral Tablet Torsemide 10 MG Torsemide 10 MG 02/24/2020 12:00:00 AM EST active Torsemide 10 MG e CW1 ([facility]) torsemide 20 MG Oral Tablet Torsemide 20 MG Torsemide 20 MG 02/24/2020 12:00:00 AM EST active Torsemide 20 MG e CW1 ([facility]) torsemide 20 MG Oral Tablet Torsemide 20 MG Torsemide 20 MG 02/24/2020 12:00:00 AM EST active Torsemide 20 MG e CW1 ([facility]) torsemide 20 MG Oral Tablet Torsemide 20 MG Torsemide 20 MG 02/24/2020 12:00:00 AM EST active Torsemide 20 MG e CW1 ([facility]) torsemide 20 MG Oral Tablet Torsemide 20 MG Torsemide 20 MG 02/24/2020 12:00:00 AM EST active Torsemide 20 MG e CW1 ([facility]) torsemide 10 MG Oral Tablet Torsemide 10 MG Torsemide 10 MG 02/24/2020 12:00:00 AM EST active Torsemide 10 MG e CW1 ([facility]) torsemide 20 MG Oral Tablet Torsemide 20 MG Torsemide 20 MG 02/24/2020 12:00:00 AM EST active Torsemide 20 MG e CW1 ([facility]) torsemide 20 MG Oral Tablet Torsemide 20 MG Torsemide 20 MG 02/24/2020 12:00:00 AM EST active Torsemide 20 MG e CW1 ([facility]) torsemide 10 MG Oral Tablet Torsemide 10 MG Torsemide 10 MG 02/24/2020 12:00:00 AM EST active Torsemide 10 MG e CW1 ([facility]) torsemide 20 MG Oral Tablet Torsemide 20 MG Torsemide 20 MG 02/24/2020 12:00:00 AM EST active Torsemide 20 MG e CW1 ([facility]) torsemide 10 MG Oral Tablet Torsemide 10 MG Torsemide 10 MG 02/24/2020 12:00:00 AM EST active Torsemide 10 MG e CW1 ([facility]) torsemide 20 MG Oral Tablet Torsemide 20 MG Torsemide 20 MG 02/24/2020 12:00:00 AM EST active Torsemide 20 MG e CW1 ([facility]) torsemide 20 MG Oral Tablet Torsemide 20 MG Torsemide 20 MG 02/24/2020 12:00:00 AM EST active Torsemide 20 MG e CW1 ([facility]) torsemide 10 MG Oral Tablet Torsemide 10 MG Torsemide 10 MG 02/24/2020 12:00:00 AM EST active Torsemide 10 MG e CW1 ([facility]) torsemide 20 MG Oral Tablet Torsemide 20 MG Torsemide 20 MG 02/24/2020 12:00:00 AM EST active Torsemide 20 MG e CW1 ([facility]) torsemide 10 MG Oral Tablet Torsemide 10 MG Torsemide 10 MG 02/24/2020 12:00:00 AM EST active Torsemide 10 MG e CW1 ([facility]) torsemide 10 MG Oral Tablet Torsemide 10 MG Torsemide 10 MG 02/24/2020 12:00:00 AM EST active Torsemide 10 MG e CW1 ([facility]) torsemide 10 MG Oral Tablet Torsemide 10 MG Torsemide 10 MG 02/24/2020 12:00:00 AM EST active Torsemide 10 MG e CW1 ([facility]) torsemide 10 MG Oral Tablet Torsemide 10 MG Torsemide 10 MG 02/24/2020 12:00:00 AM EST active Torsemide 10 MG e CW1 ([facility]) torsemide 10 MG Oral Tablet Torsemide 10 MG Torsemide 10 MG 02/24/2020 12:00:00 AM EST active Torsemide 10 MG e CW1 ([facility]) torsemide 10 MG Oral Tablet Torsemide 10 MG Torsemide 10 MG 02/24/2020 12:00:00 AM EST active Torsemide 10 MG e CW1 ([facility]) torsemide 10 MG Oral Tablet Torsemide 10 MG Torsemide 10 MG 02/24/2020 12:00:00 AM EST active Torsemide 10 MG e CW1 ([facility]) torsemide 20 MG Oral Tablet Torsemide 20 MG Torsemide 20 MG 02/24/2020 12:00:00 AM EST active Torsemide 20 MG e CW1 ([facility]) torsemide 10 MG Oral Tablet Torsemide 10 MG Torsemide 10 MG 02/24/2020 12:00:00 AM EST active Torsemide 10 MG e CW1 ([facility]) torsemide 20 MG Oral Tablet Torsemide 20 MG Torsemide 20 MG 02/24/2020 12:00:00 AM EST active Torsemide 20 MG e CW1 ([facility]) torsemide 20 MG Oral Tablet Torsemide 20 MG Torsemide 20 MG 02/24/2020 12:00:00 AM EST active Torsemide 20 MG e CW1 ([facility]) torsemide 10 MG Oral Tablet Torsemide 10 MG Torsemide 10 MG 02/24/2020 12:00:00 AM EST active Torsemide 10 MG e CW1 ([facility]) torsemide 20 MG Oral Tablet Torsemide 20 MG Torsemide 20 MG 02/24/2020 12:00:00 AM EST active Torsemide 20 MG e CW1 ([facility]) torsemide 10 MG Oral Tablet Torsemide 10 MG Torsemide 10 MG 02/24/2020 12:00:00 AM EST active Torsemide 10 MG e CW1 ([facility]) torsemide 10 MG Oral Tablet Torsemide 10 MG Torsemide 10 MG 02/24/2020 12:00:00 AM EST active Torsemide 10 MG e CW1 ([facility]) torsemide 20 MG Oral Tablet Torsemide 20 MG Torsemide 20 MG 02/24/2020 12:00:00 AM EST active Torsemide 20 MG e CW1 ([facility]) torsemide 10 MG Oral Tablet Torsemide 10 MG Torsemide 10 MG 02/24/2020 12:00:00 AM EST active Torsemide 10 MG e CW1 ([facility]) torsemide 20 MG Oral Tablet Torsemide 20 MG Torsemide 20 MG 02/24/2020 12:00:00 AM EST active Torsemide 20 MG e CW1 ([facility]) torsemide 20 MG Oral Tablet Torsemide 20 MG Torsemide 20 MG 02/24/2020 12:00:00 AM EST active Torsemide 20 MG e CW1 ([facility]) torsemide 10 MG Oral Tablet Torsemide 10 MG Torsemide 10 MG 02/24/2020 12:00:00 AM EST active Torsemide 10 MG e CW1 ([facility]) torsemide 20 MG Oral Tablet Torsemide 20 MG Torsemide 20 MG 02/24/2020 12:00:00 AM EST active Torsemide 20 MG e CW1 ([facility]) torsemide 20 MG Oral Tablet Torsemide 20 MG Torsemide 20 MG 02/24/2020 12:00:00 AM EST active Torsemide 20 MG e CW1 ([facility]) torsemide 20 MG Oral Tablet Torsemide 20 MG Torsemide 20 MG 02/24/2020 12:00:00 AM EST active Torsemide 20 MG e CW1 ([facility]) Walker - Walker - 02/15/2020 12:00:00 AM EST activ e Walker - eCW1 ([facility]) Walker - Walker - 02/15/2020 12:00:00 AM EST activ e Walker - eCW1 ([facility]) Walker - Walker - 02/15/2020 12:00:00 AM EST activ e Walker - eCW1 ([facility]) Walker - Walker - 02/15/2020 12:00:00 AM EST activ e Walker - eCW1 ([facility]) Walker - Walker - 02/15/2020 12:00:00 AM EST activ e Walker - eCW1 ([facility]) Walker - Walker - 02/15/2020 12:00:00 AM EST activ e Walker - eCW1 ([facility]) Walker - Walker - 02/15/2020 12:00:00 AM EST activ e Walker - eCW1 ([facility]) Walker - Walker - 02/15/2020 12:00:00 AM EST activ e Walker - eCW1 ([facility]) Walker - Walker - 02/15/2020 12:00:00 AM EST activ e Walker - eCW1 ([facility]) Walker - Walker - 02/15/2020 12:00:00 AM EST activ e Walker - eCW1 ([facility]) Walker - Walker - 02/15/2020 12:00:00 AM EST activ e Walker - eCW1 ([facility]) Walker - Walker - 02/15/2020 12:00:00 AM EST activ e Walker - eCW1 ([facility]) Walker - Walker - 02/15/2020 12:00:00 AM EST activ e Walker - eCW1 ([facility]) Walker - Walker - 02/15/2020 12:00:00 AM EST activ e Walker - eCW1 ([facility]) Walker - Walker - 02/15/2020 12:00:00 AM EST activ e Walker - eCW1 ([facility]) Walker - Walker - 02/15/2020 12:00:00 AM EST activ e Walker - eCW1 ([facility]) Walker - Walker - 02/15/2020 12:00:00 AM EST activ e Walker - eCW1 ([facility]) Walker - Walker - 02/15/2020 12:00:00 AM EST activ e Walker - eCW1 ([facility]) Walker - Walker - 02/15/2020 12:00:00 AM EST activ e Walker - eCW1 ([facility]) Walker - Walker - 02/15/2020 12:00:00 AM EST activ e Walker - eCW1 ([facility]) Walker - Walker - 02/15/2020 12:00:00 AM EST activ e Walker - eCW1 ([facility]) Walker - Walker - 02/15/2020 12:00:00 AM EST activ e Walker - eCW1 ([facility]) Walker - Walker - 02/15/2020 12:00:00 AM EST activ e Walker - eCW1 ([facility]) Walker - Walker - 02/15/2020 12:00:00 AM EST activ e Walker - eCW1 ([facility]) Walker - Walker - 02/15/2020 12:00:00 AM EST activ e Walker - eCW1 ([facility]) Walker - Walker - 02/15/2020 12:00:00 AM EST activ e Walker - eCW1 ([facility]) Walker - Walker - 02/15/2020 12:00:00 AM EST activ e Walker - eCW1 ([facility]) Walker - Walker - 02/15/2020 12:00:00 AM EST activ e Walker - eCW1 ([facility]) Walker - Walker - 02/15/2020 12:00:00 AM EST activ e Walker - eCW1 ([facility]) Walker - Walker - 02/15/2020 12:00:00 AM EST activ e Walker - eCW1 ([facility]) Walker - Walker - 02/15/2020 12:00:00 AM EST activ e Walker - eCW1 ([facility]) Walker - Walker - 02/15/2020 12:00:00 AM EST activ e Walker - eCW1 ([facility]) Walker - Walker - 02/15/2020 12:00:00 AM EST activ e Walker - eCW1 ([facility]) Walker - Walker - 02/15/2020 12:00:00 AM EST activ e Walker - eCW1 ([facility]) Walker - Walker - 02/15/2020 12:00:00 AM EST activ e Walker - eCW1 ([facility]) Walker - Walker - 02/15/2020 12:00:00 AM EST activ e Walker - eCW1 ([facility]) Walker - Walker - 02/15/2020 12:00:00 AM EST activ e Walker - eCW1 ([facility]) Walker - Walker - 02/15/2020 12:00:00 AM EST activ e Walker - eCW1 ([facility]) Walker - Walker - 02/15/2020 12:00:00 AM EST activ e Walker - eCW1 ([facility]) Walker - Walker - 02/15/2020 12:00:00 AM EST activ e Walker - eCW1 ([facility]) Walker - Walker - 02/15/2020 12:00:00 AM EST activ e Walker - eCW1 ([facility]) Walker - Walker - 02/15/2020 12:00:00 AM EST activ e Walker - eCW1 ([facility]) Walker - Walker - 02/15/2020 12:00:00 AM EST activ e Walker - eCW1 ([facility]) Walker - Walker - 02/15/2020 12:00:00 AM EST activ e Walker - eCW1 ([facility]) Walker - Walker - 02/15/2020 12:00:00 AM EST activ e Walker - eCW1 ([facility]) Walker - Walker - 02/15/2020 12:00:00 AM EST activ e Walker - eCW1 ([facility]) Walker - Walker - 02/15/2020 12:00:00 AM EST activ e Walker - eCW1 ([facility]) Walker - Walker - 02/15/2020 12:00:00 AM EST activ e Walker - eCW1 ([facility]) Walker - Walker - 02/15/2020 12:00:00 AM EST activ e Walker - eCW1 ([facility]) Walker - Walker - 02/15/2020 12:00:00 AM EST activ e Walker - eCW1 ([facility]) Walker - Walker - 02/15/2020 12:00:00 AM EST activ e Walker - eCW1 ([facility]) Walker - Walker - 02/15/2020 12:00:00 AM EST activ e Walker - eCW1 ([facility]) Walker - Walker - 02/15/2020 12:00:00 AM EST activ e Walker - eCW1 ([facility]) Walker - Walker - 02/15/2020 12:00:00 AM EST activ e Walker - eCW1 ([facility]) Walker - Walker - 02/15/2020 12:00:00 AM EST activ e Walker - eCW1 ([facility]) Walker - Walker - 02/15/2020 12:00:00 AM EST activ e Walker - eCW1 ([facility]) Walker - Walker - 02/15/2020 12:00:00 AM EST activ e Walker - eCW1 ([facility]) Walker - Walker - 02/15/2020 12:00:00 AM EST activ e Walker - eCW1 ([facility]) Walker - Walker - 02/15/2020 12:00:00 AM EST activ e Walker - eCW1 ([facility]) Walker - Walker - 02/15/2020 12:00:00 AM EST activ e Walker - eCW1 ([facility]) Walker - Walker - 02/15/2020 12:00:00 AM EST activ e Walker - eCW1 ([facility]) Walker - Walker - 02/15/2020 12:00:00 AM EST activ e Walker - eCW1 ([facility]) Walker - Walker - 02/15/2020 12:00:00 AM EST activ e Walker - eCW1 ([facility]) Walker - Walker - 02/15/2020 12:00:00 AM EST activ e Walker - eCW1 ([facility]) Test Strips - UNK 02/09/2020 12:00:00 AM EST acti ve Test Strips - eCW1 ([facility]) Test Strips - UNK 02/09/2020 12:00:00 AM EST acti ve Test Strips - eCW1 ([facility]) Test Strips - UNK 02/09/2020 12:00:00 AM EST acti ve Test Strips - eCW1 ([facility]) Test Strips - UNK 02/09/2020 12:00:00 AM EST acti ve Test Strips - eCW1 ([facility]) Test Strips - UNK 02/09/2020 12:00:00 AM EST acti ve Test Strips - eCW1 ([facility]) Test Strips - UNK 02/09/2020 12:00:00 AM EST acti ve Test Strips - eCW1 ([facility]) Test Strips - UNK 02/09/2020 12:00:00 AM EST acti ve Test Strips - eCW1 ([facility]) Test Strips - UNK 02/09/2020 12:00:00 AM EST acti ve Test Strips - eCW1 ([facility]) Test Strips - UNK 02/09/2020 12:00:00 AM EST acti ve Test Strips - eCW1 ([facility]) Test Strips - UNK 02/09/2020 12:00:00 AM EST acti ve Test Strips - eCW1 ([facility]) Test Strips - UNK 02/09/2020 12:00:00 AM EST acti ve Test Strips - eCW1 ([facility]) Test Strips - UNK 02/09/2020 12:00:00 AM EST acti ve Test Strips - eCW1 ([facility]) Test Strips - K 02/09/2020 12:00:00 AM EST acti ve Test Strips - eCW1 ([facility]) Test Strips - K 02/09/2020 12:00:00 AM EST acti ve Test Strips - eCW1 ([facility]) Test Strips - K 02/09/2020 12:00:00 AM EST acti ve Test Strips - eCW1 ([facility]) Test Strips - K 02/09/2020 12:00:00 AM EST acti ve Test Strips - eCW1 ([facility]) Test Strips - K 02/09/2020 12:00:00 AM EST acti ve Test Strips - eCW1 ([facility]) Test Strips - K 02/09/2020 12:00:00 AM EST acti ve Test Strips - eCW1 ([facility]) Test Strips - K 02/09/2020 12:00:00 AM EST acti ve Test Strips - eCW1 ([facility]) Test Strips - K 02/09/2020 12:00:00 AM EST acti ve Test Strips - eCW1 ([facility]) Test Strips - K 02/09/2020 12:00:00 AM EST acti ve Test Strips - eCW1 ([facility]) Test Strips - K 02/09/2020 12:00:00 AM EST acti ve Test Strips - eCW1 ([facility]) Test Strips - UNK 02/09/2020 12:00:00 AM EST acti ve Test Strips - eCW1 ([facility]) Test Strips - K 02/09/2020 12:00:00 AM EST acti ve Test Strips - eCW1 ([facility]) Test Strips - K 02/09/2020 12:00:00 AM EST acti ve Test Strips - eCW1 ([facility]) Test Strips - K 02/09/2020 12:00:00 AM EST acti ve Test Strips - eCW1 ([facility]) Test Strips - K 02/09/2020 12:00:00 AM EST acti ve Test Strips - eCW1 ([facility]) Test Strips - K 02/09/2020 12:00:00 AM EST acti ve Test Strips - eCW1 ([facility]) Test Strips - K 02/09/2020 12:00:00 AM EST acti ve Test Strips - eCW1 ([facility]) Test Strips - K 02/09/2020 12:00:00 AM EST acti ve Test Strips - eCW1 ([facility]) Test Strips - K 02/09/2020 12:00:00 AM EST acti ve Test Strips - eCW1 ([facility]) Test Strips - K 02/09/2020 12:00:00 AM EST acti ve Test Strips - eCW1 ([facility]) Test Strips - K 02/09/2020 12:00:00 AM EST acti ve Test Strips - eCW1 ([facility]) Test Strips - K 02/09/2020 12:00:00 AM EST acti ve Test Strips - eCW1 ([facility]) Test Strips - K 02/09/2020 12:00:00 AM EST acti ve Test Strips - eCW1 ([facility]) Test Strips - K 02/09/2020 12:00:00 AM EST acti ve Test Strips - eCW1 ([facility]) Test Strips - K 02/09/2020 12:00:00 AM EST acti ve Test Strips - eCW1 ([facility]) Test Strips - UNK 02/09/2020 12:00:00 AM EST acti ve Test Strips - eCW1 ([facility]) Test Strips - UNK 02/09/2020 12:00:00 AM EST acti ve Test Strips - eCW1 ([facility]) Test Strips - UNK 02/09/2020 12:00:00 AM EST acti ve Test Strips - eCW1 ([facility]) Test Strips - UNK 02/09/2020 12:00:00 AM EST acti ve Test Strips - eCW1 ([facility]) Test Strips - K 02/09/2020 12:00:00 AM EST acti ve Test Strips - eCW1 ([facility]) Test Strips - K 02/09/2020 12:00:00 AM EST acti ve Test Strips - eCW1 ([facility]) Test Strips - K 02/09/2020 12:00:00 AM EST acti ve Test Strips - eCW1 ([facility]) Test Strips - K 02/09/2020 12:00:00 AM EST acti ve Test Strips - eCW1 ([facility]) Test Strips - K 02/09/2020 12:00:00 AM EST acti ve Test Strips - eCW1 ([facility]) Test Strips - K 02/09/2020 12:00:00 AM EST acti ve Test Strips - eCW1 ([facility]) Test Strips - K 02/09/2020 12:00:00 AM EST acti ve Test Strips - eCW1 ([facility]) Test Strips - K 02/09/2020 12:00:00 AM EST acti ve Test Strips - eCW1 ([facility]) Test Strips - K 02/09/2020 12:00:00 AM EST acti ve Test Strips - eCW1 ([facility]) Test Strips - UNK 02/09/2020 12:00:00 AM EST acti ve Test Strips - eCW1 ([facility]) Test Strips - K 02/09/2020 12:00:00 AM EST acti ve Test Strips - eCW1 ([facility]) Test Strips - UNK 02/09/2020 12:00:00 AM EST acti ve Test Strips - eCW1 ([facility]) Test Strips - UNK 02/09/2020 12:00:00 AM EST acti ve Test Strips - eCW1 ([facility]) Test Strips - UNK 02/09/2020 12:00:00 AM EST acti ve Test Strips - eCW1 ([facility]) Test Strips - UNK 02/09/2020 12:00:00 AM EST acti ve Test Strips - eCW1 ([facility]) Test Strips - UNK 02/09/2020 12:00:00 AM EST acti ve Test Strips - eCW1 ([facility]) Test Strips - UNK 02/09/2020 12:00:00 AM EST acti ve Test Strips - eCW1 ([facility]) Test Strips - K 02/09/2020 12:00:00 AM EST acti ve Test Strips - eCW1 ([facility]) Test Strips - K 02/09/2020 12:00:00 AM EST acti ve Test Strips - eCW1 ([facility]) Test Strips - K 02/09/2020 12:00:00 AM EST acti ve Test Strips - eCW1 ([facility]) POLYETHYLENE GLYCOL 3350 142 MG/ML Oral Solution [Miralax] M iralax 02/09/2020 12:00:00 AM EST completed MEDENT ([facility]) magnesium citrate 58.2 MG/ML Oral Solution Magnesium Citrate 02/09/2020 12:00:00 AM EST completed MEDENT ([facility]) Test Strips - UNK 02/09/2020 12:00:00 AM EST acti ve Test Strips - eCW1 ([facility]) Test Strips - UNK 02/09/2020 12:00:00 AM EST acti ve Test Strips - eCW1 ([facility]) Test Strips - UNK 02/09/2020 12:00:00 AM EST acti ve Test Strips - eCW1 ([facility]) Test Strips - UNK 02/09/2020 12:00:00 AM EST acti ve Test Strips - eCW1 ([facility]) Test Strips - UNK 02/09/2020 12:00:00 AM EST acti ve Test Strips - eCW1 ([facility]) Test Strips - UNK 02/09/2020 12:00:00 AM EST acti ve Test Strips - eCW1 ([facility]) 3 ML insulin detemir 100 UNT/ML Pen Inje ctor [Levemir] Levemir FlexTouch 100 UNIT/ML Levemir FlexTouch 100 UNIT/ML 02/03/2020 12:00:00 AM EST active Levemir FlexTouch 100 UNIT/ML eC W1 ([facility]) Amlodipine 5 MG Oral Tablet AmLODIPine Besylate 5 MG AmLODIP ine Besylate 5 MG 02/03/2020 12:00:00 AM EST 1.0 {tablet} active AmLODIPine Besylate 5 MG eCW1 ([facility]) 3 ML insulin detemir 100 UNT/ML Pen Inje ctor [Levemir] Levemir FlexTouch 100 UNIT/ML Levemir FlexTouch 100 UNIT/ML 02/03/2020 12:00:00 AM EST active Levemir FlexTouch 100 UNIT/ML eC W1 ([facility]) 3 ML insulin detemir 100 UNT/ML Pen Inje ctor [Levemir] Levemir FlexTouch 100 UNIT/ML Levemir FlexTouch 100 UNIT/ML 02/03/2020 12:00:00 AM EST active Levemir FlexTouch 100 UNIT/ML eC W1 ([facility]) Acetaminophen 325 MG Oral Tablet Acetaminophen 325 MG 2019 12:00:00 AM EST 2.0 {tablets_as_needed} active Acetaminophen 325 MG eCW1 ([facility]) 3 ML insulin detemir 100 UNT/ML Pen Inje ctor [Levemir] Levemir FlexTouch 100 UNIT/ML Levemir FlexTouch 100 UNIT/ML 02/03/2020 12:00:00 AM EST active Levemir FlexTouch 100 UNIT/ML eC W1 ([facility]) 3 ML insulin detemir 100 UNT/ML Pen Inje ctor [Levemir] Levemir FlexTouch 100 UNIT/ML Levemir FlexTouch 100 UNIT/ML 02/03/2020 12:00:00 AM EST active Levemir FlexTouch 100 UNIT/ML eC W1 ([facility]) 3 ML insulin detemir 100 UNT/ML Pen Inje ctor [Levemir] Levemir FlexTouch 100 UNIT/ML Levemir FlexTouch 100 UNIT/ML 02/03/2020 12:00:00 AM EST active Levemir FlexTouch 100 UNIT/ML eC W1 ([facility]) Amlodipine 5 MG Oral Tablet AmLODIPine Besylate 5 MG AmLODIP ine Besylate 5 MG 02/03/2020 12:00:00 AM EST 1.0 {tablet} active AmLODIPine Besylate 5 MG eCW1 ([facility]) 3 ML insulin detemir 100 UNT/ML Pen Inje ctor [Levemir] Levemir FlexTouch 100 UNIT/ML Levemir FlexTouch 100 UNIT/ML 02/03/2020 12:00:00 AM EST active Levemir FlexTouch 100 UNIT/ML eC W1 ([facility]) Amlodipine 5 MG Oral Tablet AmLODIPine Besylate 5 MG AmLODIP ine Besylate 5 MG 02/03/2020 12:00:00 AM EST 1.0 {tablet} active AmLODIPine Besylate 5 MG eCW1 ([facility]) Acetaminophen 325 MG Oral Tablet Acetaminophen 325 MG 2019 12:00:00 AM EST 2.0 {tablets_as_needed} active Acetaminophen 325 MG eCW1 ([facility]) Acetaminophen 325 MG Oral Tablet Acetaminophen 325 MG 2019 12:00:00 AM EST 2.0 {tablets_as_needed} active Acetaminophen 325 MG eCW1 ([facility]) 3 ML insulin detemir 100 UNT/ML Pen Inje ctor [Levemir] Levemir FlexTouch 100 UNIT/ML Levemir FlexTouch 100 UNIT/ML 02/03/2020 12:00:00 AM EST active Levemir FlexTouch 100 UNIT/ML eC W1 ([facility]) 3 ML insulin detemir 100 UNT/ML Pen Inje ctor [Levemir] Levemir FlexTouch 100 UNIT/ML Levemir FlexTouch 100 UNIT/ML 02/03/2020 12:00:00 AM EST active Levemir FlexTouch 100 UNIT/ML eC W1 ([facility]) Amlodipine 5 MG Oral Tablet AmLODIPine Besylate 5 MG AmLODIP ine Besylate 5 MG 02/03/2020 12:00:00 AM EST 1.0 {tablet} active AmLODIPine Besylate 5 MG eCW1 ([facility]) 3 ML insulin detemir 100 UNT/ML Pen Inje ctor [Levemir] Levemir FlexTouch 100 UNIT/ML Levemir FlexTouch 100 UNIT/ML 02/03/2020 12:00:00 AM EST active Levemir FlexTouch 100 UNIT/ML eC W1 ([facility]) Acetaminophen 325 MG Oral Tablet Acetaminophen 325 MG 2019 12:00:00 AM EST 2.0 {tablets_as_needed} active Acetaminophen 325 MG eCW1 ([facility]) 3 ML insulin detemir 100 UNT/ML Pen Inje ctor [Levemir] Levemir FlexTouch 100 UNIT/ML Levemir FlexTouch 100 UNIT/ML 02/03/2020 12:00:00 AM EST active Levemir FlexTouch 100 UNIT/ML eC W1 ([facility]) 3 ML insulin detemir 100 UNT/ML Pen Inje ctor [Levemir] Levemir FlexTouch 100 UNIT/ML Levemir FlexTouch 100 UNIT/ML 02/03/2020 12:00:00 AM EST active Levemir FlexTouch 100 UNIT/ML eC W1 ([facility]) 3 ML insulin detemir 100 UNT/ML Pen Inje ctor [Levemir] Levemir FlexTouch 100 UNIT/ML Levemir FlexTouch 100 UNIT/ML 02/03/2020 12:00:00 AM EST active Levemir FlexTouch 100 UNIT/ML eC W1 ([facility]) 3 ML insulin detemir 100 UNT/ML Pen Inje ctor [Levemir] Levemir FlexTouch 100 UNIT/ML Levemir FlexTouch 100 UNIT/ML 02/03/2020 12:00:00 AM EST active Levemir FlexTouch 100 UNIT/ML eC W1 ([facility]) 3 ML insulin detemir 100 UNT/ML Pen Inje ctor [Levemir] Levemir FlexTouch 100 UNIT/ML Levemir FlexTouch 100 UNIT/ML 02/03/2020 12:00:00 AM EST active Levemir FlexTouch 100 UNIT/ML eC W1 ([facility]) 3 ML insulin detemir 100 UNT/ML Pen Inje ctor [Levemir] Levemir FlexTouch 100 UNIT/ML Levemir FlexTouch 100 UNIT/ML 02/03/2020 12:00:00 AM EST active Levemir FlexTouch 100 UNIT/ML eC W1 ([facility]) 3 ML insulin detemir 100 UNT/ML Pen Inje ctor [Levemir] Levemir FlexTouch 100 UNIT/ML Levemir FlexTouch 100 UNIT/ML 02/03/2020 12:00:00 AM EST active Levemir FlexTouch 100 UNIT/ML eC W1 ([facility]) Amlodipine 5 MG Oral Tablet AmLODIPine Besylate 5 MG AmLODIP ine Besylate 5 MG 02/03/2020 12:00:00 AM EST 1.0 {tablet} active AmLODIPine Besylate 5 MG eCW1 ([facility]) Amlodipine 5 MG Oral Tablet AmLODIPine Besylate 5 MG AmLODIP ine Besylate 5 MG 02/03/2020 12:00:00 AM EST 1.0 {tablet} active AmLODIPine Besylate 5 MG eCW1 ([facility]) 3 ML insulin detemir 100 UNT/ML Pen Inje ctor [Levemir] Levemir FlexTouch 100 UNIT/ML Levemir FlexTouch 100 UNIT/ML 02/03/2020 12:00:00 AM EST active Levemir FlexTouch 100 UNIT/ML eC W1 ([facility]) 3 ML insulin detemir 100 UNT/ML Pen Inje ctor [Levemir] Levemir FlexTouch 100 UNIT/ML Levemir FlexTouch 100 UNIT/ML 02/03/2020 12:00:00 AM EST active Levemir FlexTouch 100 UNIT/ML eC W1 ([facility]) 3 ML insulin detemir 100 UNT/ML Pen Inje ctor [Levemir] Levemir FlexTouch 100 UNIT/ML Levemir FlexTouch 100 UNIT/ML 02/03/2020 12:00:00 AM EST active Levemir FlexTouch 100 UNIT/ML eC W1 ([facility]) Acetaminophen 325 MG Oral Tablet Acetaminophen 325 MG 2019 12:00:00 AM EST 2.0 {tablets_as_needed} active Acetaminophen 325 MG eCW1 ([facility]) Acetaminophen 325 MG Oral Tablet Acetaminophen 325 MG 2019 12:00:00 AM EST 2.0 {tablets_as_needed} active Acetaminophen 325 MG eCW1 ([facility]) Acetaminophen 325 MG Oral Tablet Acetaminophen 325 MG 2019 12:00:00 AM EST 2.0 {tablets_as_needed} active Acetaminophen 325 MG eCW1 ([facility]) Acetaminophen 325 MG Oral Tablet Acetaminophen 325 MG 2019 12:00:00 AM EST 2.0 {tablets_as_needed} active Acetaminophen 325 MG eCW1 ([facility]) 3 ML insulin detemir 100 UNT/ML Pen Inje ctor [Levemir] Levemir FlexTouch 100 UNIT/ML Levemir FlexTouch 100 UNIT/ML 02/03/2020 12:00:00 AM EST active Levemir FlexTouch 100 UNIT/ML eC W1 ([facility]) 3 ML insulin detemir 100 UNT/ML Pen Inje ctor [Levemir] Levemir FlexTouch 100 UNIT/ML Levemir FlexTouch 100 UNIT/ML 02/03/2020 12:00:00 AM EST active Levemir FlexTouch 100 UNIT/ML eC W1 ([facility]) 3 ML insulin detemir 100 UNT/ML Pen Inje ctor [Levemir] Levemir FlexTouch 100 UNIT/ML Levemir FlexTouch 100 UNIT/ML 02/03/2020 12:00:00 AM EST active Levemir FlexTouch 100 UNIT/ML eC W1 ([facility]) Acetaminophen 325 MG Oral Tablet Acetaminophen 325 MG 2019 12:00:00 AM EST 2.0 {tablets_as_needed} active Acetaminophen 325 MG eCW1 ([facility]) Acetaminophen 325 MG Oral Tablet Acetaminophen 325 MG 2019 12:00:00 AM EST 2.0 {tablets_as_needed} active Acetaminophen 325 MG eCW1 ([facility]) 3 ML insulin detemir 100 UNT/ML Pen Inje ctor [Levemir] Levemir FlexTouch 100 UNIT/ML Levemir FlexTouch 100 UNIT/ML 02/03/2020 12:00:00 AM EST active Levemir FlexTouch 100 UNIT/ML eC W1 ([facility]) Acetaminophen 325 MG Oral Tablet Acetaminophen 325 MG 2019 12:00:00 AM EST 2.0 {tablets_as_needed} active Acetaminophen 325 MG eCW1 ([facility]) Amlodipine 5 MG Oral Tablet AmLODIPine Besylate 5 MG AmLODIP ine Besylate 5 MG 02/03/2020 12:00:00 AM EST 1.0 {tablet} active AmLODIPine Besylate 5 MG eCW1 ([facility]) 3 ML insulin detemir 100 UNT/ML Pen Inje ctor [Levemir] Levemir FlexTouch 100 UNIT/ML Levemir FlexTouch 100 UNIT/ML 02/03/2020 12:00:00 AM EST active Levemir FlexTouch 100 UNIT/ML eC W1 ([facility]) 3 ML insulin detemir 100 UNT/ML Pen Inje ctor [Levemir] Levemir FlexTouch 100 UNIT/ML Levemir FlexTouch 100 UNIT/ML 02/03/2020 12:00:00 AM EST active Levemir FlexTouch 100 UNIT/ML eC W1 ([facility]) 3 ML insulin detemir 100 UNT/ML Pen Inje ctor [Levemir] Levemir FlexTouch 100 UNIT/ML Levemir FlexTouch 100 UNIT/ML 02/03/2020 12:00:00 AM EST active Levemir FlexTouch 100 UNIT/ML eC W1 ([facility]) 3 ML insulin detemir 100 UNT/ML Pen Inje ctor [Levemir] Levemir FlexTouch 100 UNIT/ML Levemir FlexTouch 100 UNIT/ML 02/03/2020 12:00:00 AM EST active Levemir FlexTouch 100 UNIT/ML eC W1 ([facility]) 3 ML insulin detemir 100 UNT/ML Pen Inje ctor [Levemir] Levemir FlexTouch 100 UNIT/ML Levemir FlexTouch 100 UNIT/ML 02/03/2020 12:00:00 AM EST active Levemir FlexTouch 100 UNIT/ML eC W1 ([facility]) Acetaminophen 325 MG Oral Tablet Acetaminophen 325 MG 2019 12:00:00 AM EST 2.0 {tablets_as_needed} active Acetaminophen 325 MG eCW1 ([facility]) Acetaminophen 325 MG Oral Tablet Acetaminophen 325 MG 2019 12:00:00 AM EST 2.0 {tablets_as_needed} active Acetaminophen 325 MG eCW1 ([facility]) Acetaminophen 325 MG Oral Tablet Acetaminophen 325 MG 2019 12:00:00 AM EST 2.0 {tablets_as_needed} active Acetaminophen 325 MG eCW1 ([facility]) 3 ML insulin detemir 100 UNT/ML Pen Inje ctor [Levemir] Levemir FlexTouch 100 UNIT/ML Levemir FlexTouch 100 UNIT/ML 02/03/2020 12:00:00 AM EST active Levemir FlexTouch 100 UNIT/ML eC W1 ([facility]) Acetaminophen 325 MG Oral Tablet Acetaminophen 325 MG 2019 12:00:00 AM EST 2.0 {tablets_as_needed} active Acetaminophen 325 MG eCW1 ([facility]) 3 ML insulin detemir 100 UNT/ML Pen Inje ctor [Levemir] Levemir FlexTouch 100 UNIT/ML Levemir FlexTouch 100 UNIT/ML 02/03/2020 12:00:00 AM EST active Levemir FlexTouch 100 UNIT/ML eC W1 ([facility]) Amlodipine 5 MG Oral Tablet AmLODIPine Besylate 5 MG AmLODIP ine Besylate 5 MG 02/03/2020 12:00:00 AM EST 1.0 {tablet} active AmLODIPine Besylate 5 MG eCW1 ([facility]) 3 ML insulin detemir 100 UNT/ML Pen Inje ctor [Levemir] Levemir FlexTouch 100 UNIT/ML Levemir FlexTouch 100 UNIT/ML 02/03/2020 12:00:00 AM EST active Levemir FlexTouch 100 UNIT/ML eC W1 ([facility]) 3 ML insulin detemir 100 UNT/ML Pen Inje ctor [Levemir] Levemir FlexTouch 100 UNIT/ML Levemir FlexTouch 100 UNIT/ML 02/03/2020 12:00:00 AM EST active Levemir FlexTouch 100 UNIT/ML eC W1 ([facility]) Amlodipine 5 MG Oral Tablet AmLODIPine Besylate 5 MG AmLODIP ine Besylate 5 MG 02/03/2020 12:00:00 AM EST 1.0 {tablet} active AmLODIPine Besylate 5 MG eCW1 ([facility]) 3 ML insulin detemir 100 UNT/ML Pen Inje ctor [Levemir] Levemir FlexTouch 100 UNIT/ML Levemir FlexTouch 100 UNIT/ML 02/03/2020 12:00:00 AM EST active Levemir FlexTouch 100 UNIT/ML eC W1 ([facility]) Acetaminophen 325 MG Oral Tablet Acetaminophen 325 MG 2019 12:00:00 AM EST 2.0 {tablets_as_needed} active Acetaminophen 325 MG eCW1 ([facility]) 3 ML insulin detemir 100 UNT/ML Pen Inje ctor [Levemir] Levemir FlexTouch 100 UNIT/ML Levemir FlexTouch 100 UNIT/ML 02/03/2020 12:00:00 AM EST active Levemir FlexTouch 100 UNIT/ML eC W1 ([facility]) 3 ML insulin detemir 100 UNT/ML Pen Inje ctor [Levemir] Levemir FlexTouch 100 UNIT/ML Levemir FlexTouch 100 UNIT/ML 02/03/2020 12:00:00 AM EST active Levemir FlexTouch 100 UNIT/ML eC W1 ([facility]) Acetaminophen 325 MG Oral Tablet Acetaminophen 325 MG 2019 12:00:00 AM EST 2.0 {tablets_as_needed} active Acetaminophen 325 MG eCW1 ([facility]) Amlodipine 5 MG Oral Tablet AmLODIPine Besylate 5 MG AmLODIP ine Besylate 5 MG 02/03/2020 12:00:00 AM EST 1.0 {tablet} active AmLODIPine Besylate 5 MG eCW1 ([facility]) Hydrochlorothiazide 12.5 MG Oral Tablet Hydrochlorothiazide 12.5 MG 02/03/2020 12:00:00 AM EST 1.0 {tablet_in_the_morning} acti ve Hydrochlorothiazide 12.5 MG eCW1 ([facility]) 3 ML insulin detemir 100 UNT/ML Pen Inje ctor [Levemir] Levemir FlexTouch 100 UNIT/ML Levemir FlexTouch 100 UNIT/ML 02/03/2020 12:00:00 AM EST active Levemir FlexTouch 100 UNIT/ML eC W1 ([facility]) Amlodipine 5 MG Oral Tablet AmLODIPine Besylate 5 MG AmLODIP ine Besylate 5 MG 02/03/2020 12:00:00 AM EST 1.0 {tablet} active AmLODIPine Besylate 5 MG eCW1 ([facility]) 3 ML insulin detemir 100 UNT/ML Pen Inje ctor [Levemir] Levemir FlexTouch 100 UNIT/ML Levemir FlexTouch 100 UNIT/ML 02/03/2020 12:00:00 AM EST active Levemir FlexTouch 100 UNIT/ML eC W1 ([facility]) 3 ML insulin detemir 100 UNT/ML Pen Inje ctor [Levemir] Levemir FlexTouch 100 UNIT/ML Levemir FlexTouch 100 UNIT/ML 02/03/2020 12:00:00 AM EST active Levemir FlexTouch 100 UNIT/ML eC W1 ([facility]) 3 ML insulin detemir 100 UNT/ML Pen Inje ctor [Levemir] Levemir FlexTouch 100 UNIT/ML Levemir FlexTouch 100 UNIT/ML 02/03/2020 12:00:00 AM EST active Levemir FlexTouch 100 UNIT/ML eC W1 ([facility]) 3 ML insulin detemir 100 UNT/ML Pen Inje ctor [Levemir] Levemir FlexTouch 100 UNIT/ML Levemir FlexTouch 100 UNIT/ML 02/03/2020 12:00:00 AM EST active Levemir FlexTouch 100 UNIT/ML eC W1 ([facility]) 3 ML insulin detemir 100 UNT/ML Pen Inje ctor [Levemir] Levemir FlexTouch 100 UNIT/ML Levemir FlexTouch 100 UNIT/ML 02/03/2020 12:00:00 AM EST active Levemir FlexTouch 100 UNIT/ML eC W1 ([facility]) 3 ML insulin detemir 100 UNT/ML Pen Inje ctor [Levemir] Levemir FlexTouch 100 UNIT/ML Levemir FlexTouch 100 UNIT/ML 02/03/2020 12:00:00 AM EST active Levemir FlexTouch 100 UNIT/ML eC W1 ([facility]) Acetaminophen 325 MG Oral Tablet Acetaminophen 325 MG 2019 12:00:00 AM EST 2.0 {tablets_as_needed} active Acetaminophen 325 MG eCW1 ([facility]) 3 ML insulin detemir 100 UNT/ML Pen Inje ctor [Levemir] Levemir FlexTouch 100 UNIT/ML Levemir FlexTouch 100 UNIT/ML 02/03/2020 12:00:00 AM EST active Levemir FlexTouch 100 UNIT/ML eC W1 ([facility]) Acetaminophen 325 MG Oral Tablet Acetaminophen 325 MG 2019 12:00:00 AM EST 2.0 {tablets_as_needed} active Acetaminophen 325 MG eCW1 ([facility]) Amlodipine 5 MG Oral Tablet AmLODIPine Besylate 5 MG AmLODIP ine Besylate 5 MG 02/03/2020 12:00:00 AM EST 1.0 {tablet} active AmLODIPine Besylate 5 MG eCW1 ([facility]) Acetaminophen 325 MG Oral Tablet Acetaminophen 325 MG 2019 12:00:00 AM EST 2.0 {tablets_as_needed} active Acetaminophen 325 MG eCW1 ([facility]) 3 ML insulin detemir 100 UNT/ML Pen Inje ctor [Levemir] Levemir FlexTouch 100 UNIT/ML Levemir FlexTouch 100 UNIT/ML 02/03/2020 12:00:00 AM EST active Levemir FlexTouch 100 UNIT/ML eC W1 ([facility]) 3 ML insulin detemir 100 UNT/ML Pen Inje ctor [Levemir] Levemir FlexTouch 100 UNIT/ML Levemir FlexTouch 100 UNIT/ML 02/03/2020 12:00:00 AM EST active Levemir FlexTouch 100 UNIT/ML eC W1 ([facility]) 3 ML insulin detemir 100 UNT/ML Pen Inje ctor [Levemir] Levemir FlexTouch 100 UNIT/ML Levemir FlexTouch 100 UNIT/ML 02/03/2020 12:00:00 AM EST active Levemir FlexTouch 100 UNIT/ML eC W1 ([facility]) 3 ML insulin detemir 100 UNT/ML Pen Inje ctor [Levemir] Levemir FlexTouch 100 UNIT/ML Levemir FlexTouch 100 UNIT/ML 02/03/2020 12:00:00 AM EST active Levemir FlexTouch 100 UNIT/ML eC W1 ([facility]) Acetaminophen 325 MG Oral Tablet Acetaminophen 325 MG 2019 12:00:00 AM EST 2.0 {tablets_as_needed} active Acetaminophen 325 MG eCW1 ([facility]) 3 ML insulin detemir 100 UNT/ML Pen Inje ctor [Levemir] Levemir FlexTouch 100 UNIT/ML Levemir FlexTouch 100 UNIT/ML 02/03/2020 12:00:00 AM EST active Levemir FlexTouch 100 UNIT/ML eC W1 ([facility]) Amlodipine 5 MG Oral Tablet AmLODIPine Besylate 5 MG AmLODIP ine Besylate 5 MG 02/03/2020 12:00:00 AM EST 1.0 {tablet} active AmLODIPine Besylate 5 MG eCW1 ([facility]) Acetaminophen 325 MG Oral Tablet Acetaminophen 325 MG 2019 12:00:00 AM EST 2.0 {tablets_as_needed} active Acetaminophen 325 MG eCW1 ([facility]) 3 ML insulin detemir 100 UNT/ML Pen Inje ctor [Levemir] Levemir FlexTouch 100 UNIT/ML Levemir FlexTouch 100 UNIT/ML 02/03/2020 12:00:00 AM EST active Levemir FlexTouch 100 UNIT/ML eC W1 ([facility]) Acetaminophen 325 MG Oral Tablet Acetaminophen 325 MG 2019 12:00:00 AM EST 2.0 {tablets_as_needed} active Acetaminophen 325 MG eCW1 ([facility]) Hydrochlorothiazide 12.5 MG Oral Tablet Hydrochlorothiazide 12.5 MG 02/03/2020 12:00:00 AM EST 1.0 {tablet_in_the_morning} acti ve Hydrochlorothiazide 12.5 MG eCW1 ([facility]) Amlodipine 5 MG Oral Tablet AmLODIPine Besylate 5 MG AmLODIP ine Besylate 5 MG 02/03/2020 12:00:00 AM EST 1.0 {tablet} active AmLODIPine Besylate 5 MG eCW1 ([facility]) Acetaminophen 325 MG Oral Tablet Acetaminophen 325 MG 2019 12:00:00 AM EST 2.0 {tablets_as_needed} active Acetaminophen 325 MG eCW1 ([facility]) 3 ML insulin detemir 100 UNT/ML Pen Inje ctor [Levemir] Levemir FlexTouch 100 UNIT/ML Levemir FlexTouch 100 UNIT/ML 02/03/2020 12:00:00 AM EST active Levemir FlexTouch 100 UNIT/ML eC W1 ([facility]) Amlodipine 5 MG Oral Tablet AmLODIPine Besylate 5 MG AmLODIP ine Besylate 5 MG 02/03/2020 12:00:00 AM EST 1.0 {tablet} active AmLODIPine Besylate 5 MG eCW1 ([facility]) 3 ML insulin detemir 100 UNT/ML Pen Inje ctor [Levemir] Levemir FlexTouch 100 UNIT/ML Levemir FlexTouch 100 UNIT/ML 02/03/2020 12:00:00 AM EST active Levemir FlexTouch 100 UNIT/ML eC W1 ([facility]) Amlodipine 5 MG Oral Tablet AmLODIPine Besylate 5 MG AmLODIP ine Besylate 5 MG 02/03/2020 12:00:00 AM EST 1.0 {tablet} active AmLODIPine Besylate 5 MG eCW1 ([facility]) 3 ML insulin detemir 100 UNT/ML Pen Inje ctor [Levemir] Levemir FlexTouch 100 UNIT/ML Levemir FlexTouch 100 UNIT/ML 02/03/2020 12:00:00 AM EST active Levemir FlexTouch 100 UNIT/ML eC W1 ([facility]) Amlodipine 5 MG Oral Tablet AmLODIPine Besylate 5 MG AmLODIP ine Besylate 5 MG 02/03/2020 12:00:00 AM EST 1.0 {tablet} active AmLODIPine Besylate 5 MG eCW1 ([facility]) Acetaminophen 325 MG Oral Tablet Acetaminophen 325 MG 2019 12:00:00 AM EST 2.0 {tablets_as_needed} active Acetaminophen 325 MG eCW1 ([facility]) 3 ML insulin detemir 100 UNT/ML Pen Inje ctor [Levemir] Levemir FlexTouch 100 UNIT/ML Levemir FlexTouch 100 UNIT/ML 02/03/2020 12:00:00 AM EST active Levemir FlexTouch 100 UNIT/ML eC W1 ([facility]) 3 ML insulin detemir 100 UNT/ML Pen Inje ctor [Levemir] Levemir FlexTouch 100 UNIT/ML Levemir FlexTouch 100 UNIT/ML 02/03/2020 12:00:00 AM EST active Levemir FlexTouch 100 UNIT/ML eC W1 ([facility]) Acetaminophen 325 MG Oral Tablet Acetaminophen 325 MG 2019 12:00:00 AM EST 2.0 {tablets_as_needed} active Acetaminophen 325 MG eCW1 ([facility]) Amlodipine 5 MG Oral Tablet AmLODIPine Besylate 5 MG AmLODIP ine Besylate 5 MG 02/03/2020 12:00:00 AM EST 1.0 {tablet} active AmLODIPine Besylate 5 MG eCW1 ([facility]) Acetaminophen 325 MG Oral Tablet Acetaminophen 325 MG 2019 12:00:00 AM EST 2.0 {tablets_as_needed} active Acetaminophen 325 MG eCW1 ([facility]) 3 ML insulin detemir 100 UNT/ML Pen Inje ctor [Levemir] Levemir FlexTouch 100 UNIT/ML Levemir FlexTouch 100 UNIT/ML 02/03/2020 12:00:00 AM EST active Levemir FlexTouch 100 UNIT/ML eC W1 ([facility]) 3 ML insulin detemir 100 UNT/ML Pen Inje ctor [Levemir] Levemir FlexTouch 100 UNIT/ML Levemir FlexTouch 100 UNIT/ML 02/03/2020 12:00:00 AM EST active Levemir FlexTouch 100 UNIT/ML eC W1 ([facility]) 3 ML insulin detemir 100 UNT/ML Pen Inje ctor [Levemir] Levemir FlexTouch 100 UNIT/ML Levemir FlexTouch 100 UNIT/ML 02/03/2020 12:00:00 AM EST active Levemir FlexTouch 100 UNIT/ML eC W1 ([facility]) 3 ML insulin detemir 100 UNT/ML Pen Inje ctor [Levemir] Levemir FlexTouch 100 UNIT/ML Levemir FlexTouch 100 UNIT/ML 02/03/2020 12:00:00 AM EST active Levemir FlexTouch 100 UNIT/ML eC W1 ([facility]) Acetaminophen 325 MG Oral Tablet Acetaminophen 325 MG 2019 12:00:00 AM EST 2.0 {tablets_as_needed} active Acetaminophen 325 MG eCW1 ([facility]) 3 ML insulin detemir 100 UNT/ML Pen Inje ctor [Levemir] Levemir FlexTouch 100 UNIT/ML Levemir FlexTouch 100 UNIT/ML 02/03/2020 12:00:00 AM EST active Levemir FlexTouch 100 UNIT/ML eC W1 ([facility]) 3 ML insulin detemir 100 UNT/ML Pen Inje ctor [Levemir] Levemir FlexTouch 100 UNIT/ML Levemir FlexTouch 100 UNIT/ML 02/03/2020 12:00:00 AM EST active Levemir FlexTouch 100 UNIT/ML eC W1 ([facility]) Acetaminophen 325 MG Oral Tablet Acetaminophen 325 MG 2019 12:00:00 AM EST 2.0 {tablets_as_needed} active Acetaminophen 325 MG eCW1 ([facility]) 3 ML insulin detemir 100 UNT/ML Pen Inje ctor [Levemir] Levemir FlexTouch 100 UNIT/ML Levemir FlexTouch 100 UNIT/ML 02/03/2020 12:00:00 AM EST active Levemir FlexTouch 100 UNIT/ML eC W1 ([facility]) 3 ML insulin detemir 100 UNT/ML Pen Inje ctor [Levemir] Levemir FlexTouch 100 UNIT/ML Levemir FlexTouch 100 UNIT/ML 02/03/2020 12:00:00 AM EST active Levemir FlexTouch 100 UNIT/ML eC W1 ([facility]) Amlodipine 5 MG Oral Tablet AmLODIPine Besylate 5 MG AmLODIP ine Besylate 5 MG 02/03/2020 12:00:00 AM EST 1.0 {tablet} active AmLODIPine Besylate 5 MG eCW1 ([facility]) 3 ML insulin detemir 100 UNT/ML Pen Inje ctor [Levemir] Levemir FlexTouch 100 UNIT/ML Levemir FlexTouch 100 UNIT/ML 02/03/2020 12:00:00 AM EST active Levemir FlexTouch 100 UNIT/ML eC W1 ([facility]) 3 ML insulin detemir 100 UNT/ML Pen Inje ctor [Levemir] Levemir FlexTouch 100 UNIT/ML Levemir FlexTouch 100 UNIT/ML 02/03/2020 12:00:00 AM EST active Levemir FlexTouch 100 UNIT/ML eC W1 ([facility]) 3 ML insulin detemir 100 UNT/ML Pen Inje ctor [Levemir] Levemir FlexTouch 100 UNIT/ML Levemir FlexTouch 100 UNIT/ML 02/03/2020 12:00:00 AM EST active Levemir FlexTouch 100 UNIT/ML eC W1 ([facility]) 3 ML insulin detemir 100 UNT/ML Pen Inje ctor [Levemir] Levemir FlexTouch 100 UNIT/ML Levemir FlexTouch 100 UNIT/ML 02/03/2020 12:00:00 AM EST active Levemir FlexTouch 100 UNIT/ML eC W1 ([facility]) 3 ML insulin detemir 100 UNT/ML Pen Inje ctor [Levemir] Levemir FlexTouch 100 UNIT/ML Levemir FlexTouch 100 UNIT/ML 02/03/2020 12:00:00 AM EST active Levemir FlexTouch 100 UNIT/ML eC W1 ([facility]) 3 ML insulin detemir 100 UNT/ML Pen Inje ctor [Levemir] Levemir FlexTouch 100 UNIT/ML Levemir FlexTouch 100 UNIT/ML 02/03/2020 12:00:00 AM EST active Levemir FlexTouch 100 UNIT/ML eC W1 ([facility]) Amlodipine 5 MG Oral Tablet AmLODIPine Besylate 5 MG AmLODIP ine Besylate 5 MG 02/03/2020 12:00:00 AM EST 1.0 {tablet} active AmLODIPine Besylate 5 MG eCW1 ([facility]) Hydrochlorothiazide 12.5 MG Oral Capsule hydrochlorothiazide (MICROZIDE) 12.5 MG capsule hydrochlorothiazide (MICROZIDE) 12.5 MG capsule 2019 12:00:00 AM EST aborted [facility] ferrous sulfate 325 MG Delayed Release O ral Tablet Ferrous Sulfate 325 (65 Fe) MG Ferrous Sulfate 325 (65 Fe) MG 01/26/2020 12:00:00 AM EST 1. 0 {tablet} active Ferrous Sulfate 325 (65 Fe) MG eCW1 ([facility]) ferrous sulfate 325 MG Delayed Release O ral Tablet Ferrous Sulfate 325 (65 Fe) MG Ferrous Sulfate 325 (65 Fe) MG 01/26/2020 12:00:00 AM EST 1. 0 {tablet} active Ferrous Sulfate 325 (65 Fe) MG eCW1 ([facility]) Pen Welches 5/16" UNK 01/26/2020 12:00:00 AM EST active Pen Welches 5/16" eCW1 ([facility]) Pen Welches 5/16" UNK 01/26/2020 12:00:00 AM EST active Pen Welches 5/16" eCW1 ([facility]) Pen Welches 5/16" UNK 01/26/2020 12:00:00 AM EST active Pen Welches 5/16" eCW1 ([facility]) Pen Welches 5/16" UNK 01/26/2020 12:00:00 AM EST active Pen Welches 516" eCW1 ([facility]) Pen Welches 516" UNK 01/26/2020 12:00:00 AM EST active Pen Welches 516" eCW1 ([facility]) ferrous sulfate 325 MG Delayed Release O ral Tablet Ferrous Sulfate 325 (65 Fe) MG Ferrous Sulfate 325 (65 Fe) MG 01/26/2020 12:00:00 AM EST 1. 0 {tablet} active Ferrous Sulfate 325 (65 Fe) MG eCW1 ([facility]) Pen Welches 516" UNK 01/26/2020 12:00:00 AM EST active Pen Welches 516" eCW1 ([facility]) ferrous sulfate 325 MG Delayed Release O ral Tablet Ferrous Sulfate 325 (65 Fe) MG Ferrous Sulfate 325 (65 Fe) MG 01/26/2020 12:00:00 AM EST 1. 0 {tablet} active Ferrous Sulfate 325 (65 Fe) MG eCW1 ([facility]) ferrous sulfate 325 MG Delayed Release O ral Tablet Ferrous Sulfate 325 (65 Fe) MG Ferrous Sulfate 325 (65 Fe) MG 01/26/2020 12:00:00 AM EST 1. 0 {tablet} active Ferrous Sulfate 325 (65 Fe) MG eCW1 ([facility]) Pen Welches 516" UNK 01/26/2020 12:00:00 AM EST active Pen Welches 516" eCW1 ([facility]) ferrous sulfate 325 MG Delayed Release O ral Tablet Ferrous Sulfate 325 (65 Fe) MG Ferrous Sulfate 325 (65 Fe) MG 01/26/2020 12:00:00 AM EST 1. 0 {tablet} active Ferrous Sulfate 325 (65 Fe) MG eCW1 ([facility]) ferrous sulfate 325 MG Delayed Release O ral Tablet Ferrous Sulfate 325 (65 Fe) MG Ferrous Sulfate 325 (65 Fe) MG 01/26/2020 12:00:00 AM EST 1. 0 {tablet} active Ferrous Sulfate 325 (65 Fe) MG eCW1 ([facility]) Pen Welches 5/16" UNK 01/26/2020 12:00:00 AM EST active Pen Welches 516" eCW1 ([facility]) ferrous sulfate 325 MG Delayed Release O ral Tablet Ferrous Sulfate 325 (65 Fe) MG Ferrous Sulfate 325 (65 Fe) MG 01/26/2020 12:00:00 AM EST 1. 0 {tablet} active Ferrous Sulfate 325 (65 Fe) MG eCW1 ([facility]) Pen Welches 5/16" UNK 01/26/2020 12:00:00 AM EST active Pen Welches 5/16" eCW1 ([facility]) ferrous sulfate 325 MG Delayed Release O ral Tablet Ferrous Sulfate 325 (65 Fe) MG Ferrous Sulfate 325 (65 Fe) MG 01/26/2020 12:00:00 AM EST 1. 0 {tablet} active Ferrous Sulfate 325 (65 Fe) MG eCW1 ([facility]) ferrous sulfate 325 MG Delayed Release O ral Tablet Ferrous Sulfate 325 (65 Fe) MG Ferrous Sulfate 325 (65 Fe) MG 01/26/2020 12:00:00 AM EST 1. 0 {tablet} active Ferrous Sulfate 325 (65 Fe) MG eCW1 ([facility]) ferrous sulfate 325 MG Delayed Release O ral Tablet Ferrous Sulfate 325 (65 Fe) MG Ferrous Sulfate 325 (65 Fe) MG 01/26/2020 12:00:00 AM EST 1. 0 {tablet} active Ferrous Sulfate 325 (65 Fe) MG eCW1 ([facility]) ferrous sulfate 325 MG Delayed Release O ral Tablet Ferrous Sulfate 325 (65 Fe) MG Ferrous Sulfate 325 (65 Fe) MG 01/26/2020 12:00:00 AM EST 1. 0 {tablet} active Ferrous Sulfate 325 (65 Fe) MG eCW1 ([facility]) Pen Welches 5/16" UNK 01/26/2020 12:00:00 AM EST active Pen Welches 5/16" eCW1 ([facility]) Pen Welches 5/16" UNK 01/26/2020 12:00:00 AM EST active Pen Welches 5/16" eCW1 ([facility]) ferrous sulfate 325 MG Delayed Release O ral Tablet Ferrous Sulfate 325 (65 Fe) MG Ferrous Sulfate 325 (65 Fe) MG 01/26/2020 12:00:00 AM EST 1. 0 {tablet} active Ferrous Sulfate 325 (65 Fe) MG eCW1 ([facility]) Pen Welches 5/16" UNK 01/26/2020 12:00:00 AM EST active Pen Welches 5/16" eCW1 ([facility]) Pen Welches 5/16" UNK 01/26/2020 12:00:00 AM EST active Pen Welches 5/16" eCW1 ([facility]) ferrous sulfate 325 MG Delayed Release O ral Tablet Ferrous Sulfate 325 (65 Fe) MG Ferrous Sulfate 325 (65 Fe) MG 01/26/2020 12:00:00 AM EST 1. 0 {tablet} active Ferrous Sulfate 325 (65 Fe) MG eCW1 ([facility]) Pen Welches 5/16" UNK 01/26/2020 12:00:00 AM EST active Pen Welches 5/16" eCW1 ([facility]) Pen Welches 5/16" UNK 01/26/2020 12:00:00 AM EST active Pen Welches 5/16" eCW1 ([facility]) ferrous sulfate 325 MG Delayed Release O ral Tablet Ferrous Sulfate 325 (65 Fe) MG Ferrous Sulfate 325 (65 Fe) MG 01/26/2020 12:00:00 AM EST 1. 0 {tablet} active Ferrous Sulfate 325 (65 Fe) MG eCW1 ([facility]) Pen Welches 5/16" UNK 01/26/2020 12:00:00 AM EST active Pen Welches 5/16" eCW1 ([facility]) Pen Welches 5/16" UNK 01/26/2020 12:00:00 AM EST active Pen Welches 5/16" eCW1 ([facility]) ferrous sulfate 325 MG Delayed Release O ral Tablet Ferrous Sulfate 325 (65 Fe) MG Ferrous Sulfate 325 (65 Fe) MG 01/26/2020 12:00:00 AM EST 1. 0 {tablet} active Ferrous Sulfate 325 (65 Fe) MG eCW1 ([facility]) ferrous sulfate 325 MG Delayed Release O ral Tablet Ferrous Sulfate 325 (65 Fe) MG Ferrous Sulfate 325 (65 Fe) MG 01/26/2020 12:00:00 AM EST 1. 0 {tablet} active Ferrous Sulfate 325 (65 Fe) MG eCW1 ([facility]) ferrous sulfate 325 MG Delayed Release O ral Tablet Ferrous Sulfate 325 (65 Fe) MG Ferrous Sulfate 325 (65 Fe) MG 01/26/2020 12:00:00 AM EST 1. 0 {tablet} active Ferrous Sulfate 325 (65 Fe) MG eCW1 ([facility]) Pen Welches 5/16" UNK 01/26/2020 12:00:00 AM EST active Pen Welches 5/16" eCW1 ([facility]) ferrous sulfate 325 MG Delayed Release O ral Tablet Ferrous Sulfate 325 (65 Fe) MG Ferrous Sulfate 325 (65 Fe) MG 01/26/2020 12:00:00 AM EST 1. 0 {tablet} active Ferrous Sulfate 325 (65 Fe) MG eCW1 ([facility]) Pen Welches 5/16" UNK 01/26/2020 12:00:00 AM EST active Pen Welches 5/16" eCW1 ([facility]) Pen Welches 5/16" UNK 01/26/2020 12:00:00 AM EST active Pen Welches 5/16" eCW1 ([facility]) ferrous sulfate 325 MG Delayed Release O ral Tablet Ferrous Sulfate 325 (65 Fe) MG Ferrous Sulfate 325 (65 Fe) MG 01/26/2020 12:00:00 AM EST 1. 0 {tablet} active Ferrous Sulfate 325 (65 Fe) MG W1 ([facility]) ferrous sulfate 325 MG Delayed Release O ral Tablet Ferrous Sulfate 325 (65 Fe) MG Ferrous Sulfate 325 (65 Fe) MG 01/26/2020 12:00:00 AM EST 1. 0 {tablet} active Ferrous Sulfate 325 (65 Fe) MG eCW1 ([facility]) ferrous sulfate 325 MG Delayed Release O ral Tablet Ferrous Sulfate 325 (65 Fe) MG Ferrous Sulfate 325 (65 Fe) MG 01/26/2020 12:00:00 AM EST 1. 0 {tablet} active Ferrous Sulfate 325 (65 Fe) MG eCW1 ([facility]) Pen Welches 5/16" UNK 01/26/2020 12:00:00 AM EST active Pen Welches 5/16" eCW1 ([facility]) Pen Welches 5/16" UNK 01/26/2020 12:00:00 AM EST active Pen Welches 5/16" eCW1 ([facility]) ferrous sulfate 325 MG Delayed Release O ral Tablet Ferrous Sulfate 325 (65 Fe) MG Ferrous Sulfate 325 (65 Fe) MG 01/26/2020 12:00:00 AM EST 1. 0 {tablet} active Ferrous Sulfate 325 (65 Fe) MG eCW1 ([facility]) ferrous sulfate 325 MG Delayed Release O ral Tablet Ferrous Sulfate 325 (65 Fe) MG Ferrous Sulfate 325 (65 Fe) MG 01/26/2020 12:00:00 AM EST 1. 0 {tablet} active Ferrous Sulfate 325 (65 Fe) MG eCW1 ([facility]) ferrous sulfate 325 MG Delayed Release O ral Tablet Ferrous Sulfate 325 (65 Fe) MG Ferrous Sulfate 325 (65 Fe) MG 01/26/2020 12:00:00 AM EST 1. 0 {tablet} active Ferrous Sulfate 325 (65 Fe) MG eCW1 ([facility]) Pen Welches 5/16" UNK 01/26/2020 12:00:00 AM EST active Pen Welches 5/16" eCW1 ([facility]) Pen Welches 5/16" UNK 01/26/2020 12:00:00 AM EST active Pen Welches 5/16" eCW1 ([facility]) ferrous sulfate 325 MG Delayed Release O ral Tablet Ferrous Sulfate 325 (65 Fe) MG Ferrous Sulfate 325 (65 Fe) MG 01/26/2020 12:00:00 AM EST 1. 0 {tablet} active Ferrous Sulfate 325 (65 Fe) MG eCW1 ([facility]) Pen Welches 5/16" UNK 01/26/2020 12:00:00 AM EST active Pen Welches 5/16" eCW1 ([facility]) ferrous sulfate 325 MG Delayed Release O ral Tablet Ferrous Sulfate 325 (65 Fe) MG Ferrous Sulfate 325 (65 Fe) MG 01/26/2020 12:00:00 AM EST 1. 0 {tablet} active Ferrous Sulfate 325 (65 Fe) MG eCW1 ([facility]) ferrous sulfate 325 MG Delayed Release O ral Tablet Ferrous Sulfate 325 (65 Fe) MG Ferrous Sulfate 325 (65 Fe) MG 01/26/2020 12:00:00 AM EST 1. 0 {tablet} active Ferrous Sulfate 325 (65 Fe) MG eCW1 ([facility]) Pen Welches 5/16" UNK 01/26/2020 12:00:00 AM EST active Pen Welches 5/16" eCW1 ([facility]) ferrous sulfate 325 MG Delayed Release O ral Tablet Ferrous Sulfate 325 (65 Fe) MG Ferrous Sulfate 325 (65 Fe) MG 01/26/2020 12:00:00 AM EST 1. 0 {tablet} active Ferrous Sulfate 325 (65 Fe) MG eCW1 ([facility]) ferrous sulfate 325 MG Delayed Release O ral Tablet Ferrous Sulfate 325 (65 Fe) MG Ferrous Sulfate 325 (65 Fe) MG 01/26/2020 12:00:00 AM EST 1. 0 {tablet} active Ferrous Sulfate 325 (65 Fe) MG eCW1 ([facility]) ferrous sulfate 325 MG Delayed Release O ral Tablet Ferrous Sulfate 325 (65 Fe) MG Ferrous Sulfate 325 (65 Fe) MG 01/26/2020 12:00:00 AM EST 1. 0 {tablet} active Ferrous Sulfate 325 (65 Fe) MG [facility] ([facility]) ferrous sulfate 325 MG Delayed Release O ral Tablet Ferrous Sulfate 325 (65 Fe) MG Ferrous Sulfate 325 (65 Fe) MG 01/26/2020 12:00:00 AM EST 1. 0 {tablet} active Ferrous Sulfate 325 (65 Fe) MG [facility] ([facility]) Pen Welches 5/16" UNK 01/26/2020 12:00:00 AM EST active Pen Welches 5/16" W ([facility]) Pen Welches 5/16" UNK 01/26/2020 12:00:00 AM EST active Pen Welches 5/16" W ([facility]) Pen Welches 5/16" UNK 01/26/2020 12:00:00 AM EST active Pen Welches 5/16" eCW1 ([facility]) ferrous sulfate 325 MG Delayed Release O ral Tablet Ferrous Sulfate 325 (65 Fe) MG Ferrous Sulfate 325 (65 Fe) MG 01/26/2020 12:00:00 AM EST 1. 0 {tablet} active Ferrous Sulfate 325 (65 Fe) MG eC ([facility]) Pen Welches 5/16" UNK 01/26/2020 12:00:00 AM EST active Pen Welches 5/16" eCW1 ([facility]) Pen Welches 5/16" UNK 01/26/2020 12:00:00 AM EST active Pen Welches 5/16" eCW1 ([facility]) Pen Welches 5/16" UNK 01/26/2020 12:00:00 AM EST active Pen Welches 5/16" eCW1 ([facility]) Pen Welches 5/16" UNK 01/26/2020 12:00:00 AM EST active Pen Welches 5/16" eCW1 ([facility]) Pen Welches 5/16" UNK 01/26/2020 12:00:00 AM EST active Pen Welches 5/16" eCW1 ([facility]) Pen Welches 5/16" UNK 01/26/2020 12:00:00 AM EST active Pen Welches 5/16" eCW1 ([facility]) ferrous sulfate 325 MG Delayed Release O ral Tablet Ferrous Sulfate 325 (65 Fe) MG Ferrous Sulfate 325 (65 Fe) MG 01/26/2020 12:00:00 AM EST 1. 0 {tablet} active Ferrous Sulfate 325 (65 Fe) MG [facility] ([facility]) ferrous sulfate 325 MG Delayed Release O ral Tablet Ferrous Sulfate 325 (65 Fe) MG Ferrous Sulfate 325 (65 Fe) MG 01/26/2020 12:00:00 AM EST 1. 0 {tablet} active Ferrous Sulfate 325 (65 Fe) MG [facility] ([facility]) Pen Welches 5/16" UNK 01/26/2020 12:00:00 AM EST active Pen Welches 5/16" eCW1 ([facility]) Pen Welches 5/16" UNK 01/26/2020 12:00:00 AM EST active Pen Welches 5/16" eCW1 ([facility]) ferrous sulfate 325 MG Delayed Release O ral Tablet Ferrous Sulfate 325 (65 Fe) MG Ferrous Sulfate 325 (65 Fe) MG 01/26/2020 12:00:00 AM EST 1. 0 {tablet} active Ferrous Sulfate 325 (65 Fe) MG eCW1 ([facility]) ferrous sulfate 325 MG Delayed Release O ral Tablet Ferrous Sulfate 325 (65 Fe) MG Ferrous Sulfate 325 (65 Fe) MG 01/26/2020 12:00:00 AM EST 1. 0 {tablet} active Ferrous Sulfate 325 (65 Fe) MG eCW1 ([facility]) ferrous sulfate 325 MG Delayed Release O ral Tablet Ferrous Sulfate 325 (65 Fe) MG Ferrous Sulfate 325 (65 Fe) MG 01/26/2020 12:00:00 AM EST 1. 0 {tablet} active Ferrous Sulfate 325 (65 Fe) MG eCW1 ([facility]) ferrous sulfate 325 MG Delayed Release O ral Tablet Ferrous Sulfate 325 (65 Fe) MG Ferrous Sulfate 325 (65 Fe) MG 01/26/2020 12:00:00 AM EST 1. 0 {tablet} active Ferrous Sulfate 325 (65 Fe) MG W1 ([facility]) Pen Welches 5/16" UNK 01/26/2020 12:00:00 AM EST active Pen Welches 5/16" W1 ([facility]) Pen Welches 5/16" UNK 01/26/2020 12:00:00 AM EST active Pen Welches 5/16" W1 ([facility]) Pen Welches 5/16" UNK 01/26/2020 12:00:00 AM EST active Pen Welches 5/16" W1 ([facility]) Pen Welches 5/16" UNK 01/26/2020 12:00:00 AM EST active Pen Welches 5/16" eCW1 ([facility]) ferrous sulfate 325 MG Delayed Release O ral Tablet Ferrous Sulfate 325 (65 Fe) MG Ferrous Sulfate 325 (65 Fe) MG 01/26/2020 12:00:00 AM EST 1. 0 {tablet} active Ferrous Sulfate 325 (65 Fe) MG [facility] ([facility]) Pen Welches 5/16" UNK 01/26/2020 12:00:00 AM EST active Pen Welches 5/16" W1 ([facility]) Pen Welches 5/16" UNK 01/26/2020 12:00:00 AM EST active Pen Welches 5/16" W1 ([facility]) Pen Welches 5/16" UNK 01/26/2020 12:00:00 AM EST active Pen Welches 5/16" eCW1 ([facility]) Pen Welches 5/16" UNK 01/26/2020 12:00:00 AM EST active Pen Welches 5/16" eCW1 ([facility]) ferrous sulfate 325 MG Delayed Release O ral Tablet Ferrous Sulfate 325 (65 Fe) MG Ferrous Sulfate 325 (65 Fe) MG 01/26/2020 12:00:00 AM EST 1. 0 {tablet} active Ferrous Sulfate 325 (65 Fe) MG eCW1 ([facility]) Pen Welches 5/16" UNK 01/26/2020 12:00:00 AM EST active Pen Welches 5/16" eCW1 ([facility]) ferrous sulfate 325 MG Delayed Release O ral Tablet Ferrous Sulfate 325 (65 Fe) MG Ferrous Sulfate 325 (65 Fe) MG 01/26/2020 12:00:00 AM EST 1. 0 {tablet} active Ferrous Sulfate 325 (65 Fe) MG eCW1 ([facility]) Pen Welches 5/16" UNK 01/26/2020 12:00:00 AM EST active Pen Welches 5/16" eCW1 ([facility]) ferrous sulfate 325 MG Delayed Release O ral Tablet Ferrous Sulfate 325 (65 Fe) MG Ferrous Sulfate 325 (65 Fe) MG 01/26/2020 12:00:00 AM EST 1. 0 {tablet} active Ferrous Sulfate 325 (65 Fe) MG eCW1 ([facility]) Pen Welches 5/16" UNK 01/26/2020 12:00:00 AM EST active Pen Welches 5/16" eCW1 ([facility]) Pen Welches 5/16" UNK 01/26/2020 12:00:00 AM EST active Pen Welches 5/16" eCW1 ([facility]) Pen Welches 5/16" UNK 01/26/2020 12:00:00 AM EST active Pen Welches 5/16" eCW1 ([facility]) Pen Welches 5/16" UNK 01/26/2020 12:00:00 AM EST active Pen Welches 5/16" eCW1 ([facility]) Pen Welches 5/16" UNK 01/26/2020 12:00:00 AM EST active Pen Welches 5/16" eCW1 ([facility]) ferrous sulfate 325 MG Delayed Release O ral Tablet Ferrous Sulfate 325 (65 Fe) MG Ferrous Sulfate 325 (65 Fe) MG 01/26/2020 12:00:00 AM EST 1. 0 {tablet} active Ferrous Sulfate 325 (65 Fe) MG eCW1 ([facility]) Pen Welches 5/16" UNK 01/26/2020 12:00:00 AM EST active Pen Welches 5/16" eCW1 ([facility]) ferrous sulfate 325 MG Delayed Release O ral Tablet Ferrous Sulfate 325 (65 Fe) MG Ferrous Sulfate 325 (65 Fe) MG 01/26/2020 12:00:00 AM EST 1. 0 {tablet} active Ferrous Sulfate 325 (65 Fe) MG eCW1 ([facility]) Pen Welches 5/16" UNK 01/26/2020 12:00:00 AM EST active Pen Welches 5/16" eCW1 ([facility]) Pen Welches 5/16" UNK 01/26/2020 12:00:00 AM EST active Pen Welches 5/16" eCW1 ([facility]) ferrous sulfate 325 MG Delayed Release O ral Tablet Ferrous Sulfate 325 (65 Fe) MG Ferrous Sulfate 325 (65 Fe) MG 01/26/2020 12:00:00 AM EST 1. 0 {tablet} active Ferrous Sulfate 325 (65 Fe) MG eCW1 ([facility]) Pen Welches 5/16" UNK 01/26/2020 12:00:00 AM EST active Pen Welches 5/16" eCW1 ([facility]) ferrous sulfate 325 MG Delayed Release O ral Tablet Ferrous Sulfate 325 (65 Fe) MG Ferrous Sulfate 325 (65 Fe) MG 01/26/2020 12:00:00 AM EST 1. 0 {tablet} active Ferrous Sulfate 325 (65 Fe) MG eCW1 ([facility]) ferrous sulfate 325 MG Delayed Release O ral Tablet Ferrous Sulfate 325 (65 Fe) MG Ferrous Sulfate 325 (65 Fe) MG 01/26/2020 12:00:00 AM EST 1. 0 {tablet} active Ferrous Sulfate 325 (65 Fe) MG eCW1 ([facility]) Pen Welches 5/16" UNK 01/26/2020 12:00:00 AM EST active Pen Welches 5/16" eCW1 ([facility]) ferrous sulfate 325 MG Delayed Release O ral Tablet Ferrous Sulfate 325 (65 Fe) MG Ferrous Sulfate 325 (65 Fe) MG 01/26/2020 12:00:00 AM EST 1. 0 {tablet} active Ferrous Sulfate 325 (65 Fe) MG eCW1 ([facility]) ferrous sulfate 325 MG Delayed Release O ral Tablet Ferrous Sulfate 325 (65 Fe) MG Ferrous Sulfate 325 (65 Fe) MG 01/26/2020 12:00:00 AM EST 1. 0 {tablet} active Ferrous Sulfate 325 (65 Fe) MG W1 ([facility]) Pen Welches 5/16" UNK 01/26/2020 12:00:00 AM EST active Pen Welches 5/16" eCW1 ([facility]) Pen Welches 5/16" UNK 01/26/2020 12:00:00 AM EST active Pen Welches 5/16" eCW1 ([facility]) Pen Welches 5/16" UNK 01/26/2020 12:00:00 AM EST active Pen Welches 5/16" W1 ([facility]) Pen Welches 5/16" UNK 01/26/2020 12:00:00 AM EST active Pen Welches 5/16" eCW1 ([facility]) ferrous sulfate 325 MG Delayed Release O ral Tablet Ferrous Sulfate 325 (65 Fe) MG Ferrous Sulfate 325 (65 Fe) MG 01/26/2020 12:00:00 AM EST 1. 0 {tablet} active Ferrous Sulfate 325 (65 Fe) MG W1 ([facility]) Pen Welches 5/16" UNK 01/26/2020 12:00:00 AM EST active Pen Welches 5/16" W1 ([facility]) Pen Welches 5/16" UNK 01/26/2020 12:00:00 AM EST active Pen Welches 5/16" eCW1 ([facility]) ferrous sulfate 325 MG Delayed Release O ral Tablet Ferrous Sulfate 325 (65 Fe) MG Ferrous Sulfate 325 (65 Fe) MG 01/26/2020 12:00:00 AM EST 1. 0 {tablet} active Ferrous Sulfate 325 (65 Fe) MG W1 ([facility]) Pen Welches 5/16" UNK 01/26/2020 12:00:00 AM EST active Pen Welches 5/16" eCW1 ([facility]) Pen Welches 5/16" UNK 01/26/2020 12:00:00 AM EST active Pen Welches 5/16" eCW1 ([facility]) ferrous sulfate 325 MG Delayed Release O ral Tablet Ferrous Sulfate 325 (65 Fe) MG Ferrous Sulfate 325 (65 Fe) MG 01/26/2020 12:00:00 AM EST 1. 0 {tablet} active Ferrous Sulfate 325 (65 Fe) MG eCW1 ([facility]) ferrous sulfate 325 MG Delayed Release O ral Tablet Ferrous Sulfate 325 (65 Fe) MG Ferrous Sulfate 325 (65 Fe) MG 01/26/2020 12:00:00 AM EST 1. 0 {tablet} active Ferrous Sulfate 325 (65 Fe) MG eCW1 ([facility]) ferrous sulfate 325 MG Delayed Release O ral Tablet Ferrous Sulfate 325 (65 Fe) MG Ferrous Sulfate 325 (65 Fe) MG 01/26/2020 12:00:00 AM EST 1. 0 {tablet} active Ferrous Sulfate 325 (65 Fe) MG eCW1 ([facility]) Pen Welches 5/16" UNK 01/26/2020 12:00:00 AM EST active Pen Welches 5/16" eCW1 ([facility]) Pen Welches 5/16" UNK 01/26/2020 12:00:00 AM EST active Pen Welches 5/16" eCW1 ([facility]) ferrous sulfate 325 MG Delayed Release O ral Tablet Ferrous Sulfate 325 (65 Fe) MG Ferrous Sulfate 325 (65 Fe) MG 01/26/2020 12:00:00 AM EST 1. 0 {tablet} active Ferrous Sulfate 325 (65 Fe) MG eCW1 ([facility]) ferrous sulfate 325 MG Delayed Release O ral Tablet Ferrous Sulfate 325 (65 Fe) MG Ferrous Sulfate 325 (65 Fe) MG 01/26/2020 12:00:00 AM EST 1. 0 {tablet} active Ferrous Sulfate 325 (65 Fe) MG eCW1 ([facility]) ferrous sulfate 325 MG Delayed Release O ral Tablet Ferrous Sulfate 325 (65 Fe) MG Ferrous Sulfate 325 (65 Fe) MG 01/26/2020 12:00:00 AM EST 1. 0 {tablet} active Ferrous Sulfate 325 (65 Fe) MG eCW1 ([facility]) ferrous sulfate 325 MG Delayed Release O ral Tablet Ferrous Sulfate 325 (65 Fe) MG Ferrous Sulfate 325 (65 Fe) MG 01/26/2020 12:00:00 AM EST 1. 0 {tablet} active Ferrous Sulfate 325 (65 Fe) MG eCW1 ([facility]) ferrous sulfate 325 MG Delayed Release O ral Tablet Ferrous Sulfate 325 (65 Fe) MG Ferrous Sulfate 325 (65 Fe) MG 01/26/2020 12:00:00 AM EST 1. 0 {tablet} active Ferrous Sulfate 325 (65 Fe) MG eCW1 ([facility]) ferrous sulfate 325 MG Delayed Release O ral Tablet Ferrous Sulfate 325 (65 Fe) MG Ferrous Sulfate 325 (65 Fe) MG 01/26/2020 12:00:00 AM EST 1. 0 {tablet} active Ferrous Sulfate 325 (65 Fe) MG eCW1 ([facility]) ferrous sulfate 325 MG Delayed Release O ral Tablet Ferrous Sulfate 325 (65 Fe) MG Ferrous Sulfate 325 (65 Fe) MG 01/26/2020 12:00:00 AM EST 1. 0 {tablet} active Ferrous Sulfate 325 (65 Fe) MG eCW1 ([facility]) Pen Welches 5/16" UNK 01/26/2020 12:00:00 AM EST active Pen Welches 5/16" eCW1 ([facility]) ferrous sulfate 325 MG Delayed Release O ral Tablet Ferrous Sulfate 325 (65 Fe) MG Ferrous Sulfate 325 (65 Fe) MG 01/26/2020 12:00:00 AM EST 1. 0 {tablet} active Ferrous Sulfate 325 (65 Fe) MG eCW1 ([facility]) ferrous sulfate 325 MG Delayed Release O ral Tablet Ferrous Sulfate 325 (65 Fe) MG Ferrous Sulfate 325 (65 Fe) MG 01/26/2020 12:00:00 AM EST 1. 0 {tablet} active Ferrous Sulfate 325 (65 Fe) MG eCW1 ([facility]) Pen Welches 5/16" UNK 01/26/2020 12:00:00 AM EST active Pen Welches 5/16" eCW1 ([facility]) ferrous sulfate 325 MG Delayed Release O ral Tablet Ferrous Sulfate 325 (65 Fe) MG Ferrous Sulfate 325 (65 Fe) MG 01/26/2020 12:00:00 AM EST 1. 0 {tablet} active Ferrous Sulfate 325 (65 Fe) MG eCW1 ([facility]) Pen Welches 5/16" UNK 01/26/2020 12:00:00 AM EST active Pen Welches 5/16" eCW1 ([facility]) Pen Welches 5/16" UNK 01/26/2020 12:00:00 AM EST active Pen Welches 516" eCW1 ([facility]) ferrous sulfate 325 MG Delayed Release O ral Tablet Ferrous Sulfate 325 (65 Fe) MG Ferrous Sulfate 325 (65 Fe) MG 01/26/2020 12:00:00 AM EST 1. 0 {tablet} active Ferrous Sulfate 325 (65 Fe) MG eCW1 ([facility]) ferrous sulfate 325 MG Delayed Release O ral Tablet Ferrous Sulfate 325 (65 Fe) MG Ferrous Sulfate 325 (65 Fe) MG 01/26/2020 12:00:00 AM EST 1. 0 {tablet} active Ferrous Sulfate 325 (65 Fe) MG eCW1 ([facility]) ferrous sulfate 325 MG Delayed Release O ral Tablet Ferrous Sulfate 325 (65 Fe) MG Ferrous Sulfate 325 (65 Fe) MG 01/26/2020 12:00:00 AM EST 1. 0 {tablet} active Ferrous Sulfate 325 (65 Fe) MG W1 ([facility]) ferrous sulfate 325 MG Delayed Release O ral Tablet Ferrous Sulfate 325 (65 Fe) MG Ferrous Sulfate 325 (65 Fe) MG 01/26/2020 12:00:00 AM EST 1. 0 {tablet} active Ferrous Sulfate 325 (65 Fe) MG [facility] ([facility]) ferrous sulfate 325 MG Delayed Release O ral Tablet Ferrous Sulfate 325 (65 Fe) MG Ferrous Sulfate 325 (65 Fe) MG 01/26/2020 12:00:00 AM EST 1. 0 {tablet} active Ferrous Sulfate 325 (65 Fe) MG eCW1 ([facility]) ferrous sulfate 325 MG Delayed Release O ral Tablet Ferrous Sulfate 325 (65 Fe) MG Ferrous Sulfate 325 (65 Fe) MG 01/26/2020 12:00:00 AM EST 1. 0 {tablet} active Ferrous Sulfate 325 (65 Fe) MG eCW1 ([facility]) ferrous sulfate 325 MG Delayed Release O ral Tablet Ferrous Sulfate 325 (65 Fe) MG Ferrous Sulfate 325 (65 Fe) MG 01/26/2020 12:00:00 AM EST 1. 0 {tablet} active Ferrous Sulfate 325 (65 Fe) MG eCW1 ([facility]) Pen Welches 5/16" UNK 01/26/2020 12:00:00 AM EST active Pen Welches 516" eCW1 ([facility]) Lancets - Lancets - 12/07/2019 12:00:00 AM EDT act mukesh Lancets - eCW1 ([facility]) Lancets - Lancets - 12/07/2019 12:00:00 AM EDT act mukesh Lancets - eCW1 ([facility]) Lancets - Lancets - 12/07/2019 12:00:00 AM EDT act mukesh Lancets - eCW1 ([facility]) Glucometer UNK 12/07/2019 12:00:00 AM EDT active Glucometer eCW1 ([facility]) Lancets - Lancets - 12/07/2019 12:00:00 AM EDT act mukesh Lancets - eCW1 ([facility]) Glucometer UNK 12/07/2019 12:00:00 AM EDT active Glucometer eCW1 ([facility]) Lancets - Lancets - 12/07/2019 12:00:00 AM EDT act mukesh Lancets - eCW1 ([facility]) Glucometer UNK 12/07/2019 12:00:00 AM EDT active Glucometer eCW1 ([facility]) Lancets - Lancets - 12/07/2019 12:00:00 AM EDT act mukesh Lancets - eCW1 ([facility]) Glucometer UNK 12/07/2019 12:00:00 AM EDT active Glucometer eCW1 ([facility]) Lancets - Lancets - 12/07/2019 12:00:00 AM EDT act mukesh Lancets - eCW1 ([facility]) Glucometer UNK 12/07/2019 12:00:00 AM EDT active Glucometer eCW1 ([facility]) Glucometer UNK 12/07/2019 12:00:00 AM EDT active Glucometer eCW1 ([facility]) Glucometer UNK 12/07/2019 12:00:00 AM EDT active Glucometer eCW1 ([facility]) Glucometer UNK 12/07/2019 12:00:00 AM EDT active Glucometer eCW1 ([facility]) Lancets - Lancets - 12/07/2019 12:00:00 AM EDT act mukesh Lancets - eCW1 ([facility]) Lancets - Lancets - 12/07/2019 12:00:00 AM EDT act mukesh Lancets - eCW1 ([facility]) Lancets - Lancets - 12/07/2019 12:00:00 AM EDT act mukesh Lancets - eCW1 ([facility]) Lancets - Lancets - 12/07/2019 12:00:00 AM EDT act mukesh Lancets - eCW1 ([facility]) Lancets - Lancets - 12/07/2019 12:00:00 AM EDT act mukesh Lancets - eCW1 ([facility]) Glucometer UNK 12/07/2019 12:00:00 AM EDT active Glucometer eCW1 ([facility]) Lancets - Lancets - 12/07/2019 12:00:00 AM EDT act mukesh Lancets - eCW1 ([facility]) Glucometer UNK 12/07/2019 12:00:00 AM EDT active Glucometer eCW1 ([facility]) Lancets - Lancets - 12/07/2019 12:00:00 AM EDT act mukesh Lancets - eCW1 ([facility]) Glucometer UNK 12/07/2019 12:00:00 AM EDT active Glucometer eCW1 ([facility]) Glucometer UNK 12/07/2019 12:00:00 AM EDT active Glucometer eCW1 ([facility]) Lancets - Lancets - 12/07/2019 12:00:00 AM EDT act mukesh Lancets - eCW1 ([facility]) Lancets - Lancets - 12/07/2019 12:00:00 AM EDT act mukesh Lancets - eCW1 ([facility]) Lancets - Lancets - 12/07/2019 12:00:00 AM EDT act mukesh Lancets - eCW1 ([facility]) Lancets - Lancets - 12/07/2019 12:00:00 AM EDT act mukesh Lancets - eCW1 ([facility]) Glucometer UNK 12/07/2019 12:00:00 AM EDT active Glucometer eCW1 ([facility]) Lancets - Lancets - 12/07/2019 12:00:00 AM EDT act mukesh Lancets - eCW1 ([facility]) Glucometer UNK 12/07/2019 12:00:00 AM EDT active Glucometer eCW1 ([facility]) Glucometer UNK 12/07/2019 12:00:00 AM EDT active Glucometer eCW1 ([facility]) Glucometer UNK 12/07/2019 12:00:00 AM EDT active Glucometer eCW1 ([facility]) Lancets - Lancets - 12/07/2019 12:00:00 AM EDT act mukesh Lancets - eCW1 ([facility]) Glucometer UNK 12/07/2019 12:00:00 AM EDT active Glucometer eCW1 ([facility]) Lancets - Lancets - 12/07/2019 12:00:00 AM EDT act mukesh Lancets - eCW1 ([facility]) Glucometer UNK 12/07/2019 12:00:00 AM EDT active Glucometer eCW1 ([facility]) Lancets - Lancets - 12/07/2019 12:00:00 AM EDT act mukesh Lancets - eCW1 ([facility]) Lancets - Lancets - 12/07/2019 12:00:00 AM EDT act mukesh Lancets - eCW1 ([facility]) Glucometer UNK 12/07/2019 12:00:00 AM EDT active Glucometer eCW1 ([facility]) Glucometer UNK 12/07/2019 12:00:00 AM EDT active Glucometer eCW1 ([facility]) Lancets - Lancets - 12/07/2019 12:00:00 AM EDT act mukesh Lancets - eCW1 ([facility]) Lancets - Lancets - 12/07/2019 12:00:00 AM EDT act mukesh Lancets - eCW1 ([facility]) Lancets - Lancets - 12/07/2019 12:00:00 AM EDT act mukesh Lancets - eCW1 ([facility]) Lancets - Lancets - 12/07/2019 12:00:00 AM EDT act mukesh Lancets - eCW1 ([facility]) Glucometer UNK 12/07/2019 12:00:00 AM EDT active Glucometer eCW1 ([facility]) Lancets - Lancets - 12/07/2019 12:00:00 AM EDT act mukesh Lancets - eCW1 ([facility]) Lancets - Lancets - 12/07/2019 12:00:00 AM EDT act mukesh Lancets - eCW1 ([facility]) Lancets - Lancets - 12/07/2019 12:00:00 AM EDT act mukesh Lancets - eCW1 ([facility]) Glucometer UNK 12/07/2019 12:00:00 AM EDT active Glucometer eCW1 ([facility]) Lancets - Lancets - 12/07/2019 12:00:00 AM EDT act mukesh Lancets - eCW1 ([facility]) Lancets - Lancets - 12/07/2019 12:00:00 AM EDT act mukesh Lancets - eCW1 ([facility]) Lancets - Lancets - 12/07/2019 12:00:00 AM EDT act mukesh Lancets - eCW1 ([facility]) Lancets - Lancets - 12/07/2019 12:00:00 AM EDT act mukesh Lancets - eCW1 ([facility]) Lancets - Lancets - 12/07/2019 12:00:00 AM EDT act mukesh Lancets - eCW1 ([facility]) Lancets - Lancets - 12/07/2019 12:00:00 AM EDT act mukesh Lancets - eCW1 ([facility]) Glucometer UNK 12/07/2019 12:00:00 AM EDT active Glucometer eCW1 ([facility]) Lancets - Lancets - 12/07/2019 12:00:00 AM EDT act mukesh Lancets - eCW1 ([facility]) Glucometer UNK 12/07/2019 12:00:00 AM EDT active Glucometer eCW1 ([facility]) Glucometer UNK 12/07/2019 12:00:00 AM EDT active Glucometer eCW1 ([facility]) Glucometer UNK 12/07/2019 12:00:00 AM EDT active Glucometer eCW1 ([facility]) Glucometer UNK 12/07/2019 12:00:00 AM EDT active Glucometer eCW1 ([facility]) Glucometer UNK 12/07/2019 12:00:00 AM EDT active Glucometer eCW1 ([facility]) Glucometer UNK 12/07/2019 12:00:00 AM EDT active Glucometer eCW1 ([facility]) Glucometer UNK 12/07/2019 12:00:00 AM EDT active Glucometer eCW1 ([facility]) Lancets - Lancets - 12/07/2019 12:00:00 AM EDT act mukesh Lancets - eCW1 ([facility]) Lancets - Lancets - 12/07/2019 12:00:00 AM EDT act mukesh Lancets - eCW1 ([facility]) Glucometer UNK 12/07/2019 12:00:00 AM EDT active Glucometer eCW1 ([facility]) Glucometer UNK 12/07/2019 12:00:00 AM EDT active Glucometer eCW1 ([facility]) Glucometer UNK 12/07/2019 12:00:00 AM EDT active Glucometer eCW1 ([facility]) Glucometer UNK 12/07/2019 12:00:00 AM EDT active Glucometer eCW1 ([facility]) Lancets - Lancets - 12/07/2019 12:00:00 AM EDT act mukesh Lancets - eCW1 ([facility]) Glucometer UNK 12/07/2019 12:00:00 AM EDT active Glucometer eCW1 ([facility]) Lancets - Lancets - 12/07/2019 12:00:00 AM EDT act mukesh Lancets - eCW1 ([facility]) Glucometer UNK 12/07/2019 12:00:00 AM EDT active Glucometer eCW1 ([facility]) Glucometer UNK 12/07/2019 12:00:00 AM EDT active Glucometer eCW1 ([facility]) Lancets - Lancets - 12/07/2019 12:00:00 AM EDT act mukesh Lancets - eCW1 ([facility]) Glucometer UNK 12/07/2019 12:00:00 AM EDT active Glucometer eCW1 ([facility]) Glucometer UNK 12/07/2019 12:00:00 AM EDT active Glucometer eCW1 ([facility]) Glucometer UNK 12/07/2019 12:00:00 AM EDT active Glucometer eCW1 ([facility]) Lancets - Lancets - 12/07/2019 12:00:00 AM EDT act mukesh Lancets - eCW1 ([facility]) Glucometer UNK 12/07/2019 12:00:00 AM EDT active Glucometer eCW1 ([facility]) Glucometer UNK 12/07/2019 12:00:00 AM EDT active Glucometer eCW1 ([facility]) Glucometer UNK 12/07/2019 12:00:00 AM EDT active Glucometer eCW1 ([facility]) Glucometer UNK 12/07/2019 12:00:00 AM EDT active Glucometer eCW1 ([facility]) Lancets - Lancets - 12/07/2019 12:00:00 AM EDT act mukesh Lancets - eCW1 ([facility]) Lancets - Lancets - 12/07/2019 12:00:00 AM EDT act mukesh Lancets - eCW1 ([facility]) Lancets - Lancets - 12/07/2019 12:00:00 AM EDT act mukesh Lancets - eCW1 ([facility]) Lancets - Lancets - 12/07/2019 12:00:00 AM EDT act mukesh Lancets - eCW1 ([facility]) Lancets - Lancets - 12/07/2019 12:00:00 AM EDT act mukesh Lancets - eCW1 ([facility]) Lancets - Lancets - 12/07/2019 12:00:00 AM EDT act mukesh Lancets - eCW1 ([facility]) Glucometer UNK 12/07/2019 12:00:00 AM EDT active Glucometer eCW1 ([facility]) Lancets - Lancets - 12/07/2019 12:00:00 AM EDT act mukesh Lancets - eCW1 ([facility]) Lancets - Lancets - 12/07/2019 12:00:00 AM EDT act mukesh Lancets - eCW1 ([facility]) Glucometer UNK 12/07/2019 12:00:00 AM EDT active Glucometer eCW1 ([facility]) Glucometer UNK 12/07/2019 12:00:00 AM EDT active Glucometer eCW1 ([facility]) Lancets - Lancets - 12/07/2019 12:00:00 AM EDT act mukesh Lancets - eCW1 ([facility]) Lancets - Lancets - 12/07/2019 12:00:00 AM EDT act mukesh Lancets - eCW1 ([facility]) Lancets - Lancets - 12/07/2019 12:00:00 AM EDT act mukesh Lancets - eCW1 ([facility]) Lancets - Lancets - 12/07/2019 12:00:00 AM EDT act mukesh Lancets - eCW1 ([facility]) Lancets - Lancets - 12/07/2019 12:00:00 AM EDT act mukesh Lancets - eCW1 ([facility]) Glucometer UNK 12/07/2019 12:00:00 AM EDT active Glucometer eCW1 ([facility]) Glucometer UNK 12/07/2019 12:00:00 AM EDT active Glucometer eCW1 ([facility]) Glucometer UNK 12/07/2019 12:00:00 AM EDT active Glucometer eCW1 ([facility]) Lancets - Lancets - 12/07/2019 12:00:00 AM EDT act mukesh Lancets - eCW1 ([facility]) Lancets - Lancets - 12/07/2019 12:00:00 AM EDT act mukesh Lancets - eCW1 ([facility]) Glucometer UNK 12/07/2019 12:00:00 AM EDT active Glucometer eCW1 ([facility]) Lancets - Lancets - 12/07/2019 12:00:00 AM EDT act mukesh Lancets - eCW1 ([facility]) Lancets - Lancets - 12/07/2019 12:00:00 AM EDT act mukesh Lancets - eCW1 ([facility]) Glucometer UNK 12/07/2019 12:00:00 AM EDT active Glucometer eCW1 ([facility]) Lancets - Lancets - 12/07/2019 12:00:00 AM EDT act mukesh Lancets - eCW1 ([facility]) Glucometer UNK 12/07/2019 12:00:00 AM EDT active Glucometer eCW1 ([facility]) Lancets - Lancets - 12/07/2019 12:00:00 AM EDT act mukesh Lancets - eCW1 ([facility]) Glucometer UNK 12/07/2019 12:00:00 AM EDT active Glucometer eCW1 ([facility]) Lancets - Lancets - 12/07/2019 12:00:00 AM EDT act mukesh Lancets - eCW1 ([facility]) Glucometer UNK 12/07/2019 12:00:00 AM EDT active Glucometer eCW1 ([facility]) Glucometer UNK 12/07/2019 12:00:00 AM EDT active Glucometer eCW1 ([facility]) Glucometer UNK 12/07/2019 12:00:00 AM EDT active Glucometer eCW1 ([facility]) Glucometer UNK 12/07/2019 12:00:00 AM EDT active Glucometer eCW1 ([facility]) Glucometer UNK 12/07/2019 12:00:00 AM EDT active Glucometer eCW1 ([facility]) Glucometer UNK 12/07/2019 12:00:00 AM EDT active Glucometer eCW1 ([facility]) Glucometer UNK 12/07/2019 12:00:00 AM EDT active Glucometer eCW1 ([facility]) Glucometer UNK 12/07/2019 12:00:00 AM EDT active Glucometer eCW1 ([facility]) Glucometer UNK 12/07/2019 12:00:00 AM EDT active Glucometer eCW1 ([facility]) Lancets - Lancets - 12/07/2019 12:00:00 AM EDT act mukesh Lancets - eCW1 ([facility]) Lancets - Lancets - 12/07/2019 12:00:00 AM EDT act mukesh Lancets - eCW1 ([facility]) Glucometer UNK 12/07/2019 12:00:00 AM EDT active Glucometer eCW1 ([facility]) Glucometer UNK 12/07/2019 12:00:00 AM EDT active Glucometer eCW1 ([facility]) Lancets - Lancets - 12/07/2019 12:00:00 AM EDT act mukesh Lancets - eCW1 ([facility]) Glucometer UNK 12/07/2019 12:00:00 AM EDT active Glucometer eCW1 ([facility]) Glucometer UNK 12/07/2019 12:00:00 AM EDT active Glucometer eCW1 ([facility]) Lancets - Lancets - 12/07/2019 12:00:00 AM EDT act mukesh Lancets - eCW1 ([facility]) Lancets - Lancets - 12/07/2019 12:00:00 AM EDT act mukesh Lancets - eCW1 ([facility]) Lancets - Lancets - 12/07/2019 12:00:00 AM EDT act mukesh Lancets - eCW1 ([facility]) Lancets - Lancets - 12/07/2019 12:00:00 AM EDT act mukesh Lancets - eCW1 ([facility]) Glucometer UNK 12/07/2019 12:00:00 AM EDT active Glucometer eCW1 ([facility]) Glucometer UNK 12/07/2019 12:00:00 AM EDT active Glucometer eCW1 ([facility]) Lancets - Lancets - 12/07/2019 12:00:00 AM EDT act mukesh Lancets - eCW1 ([facility]) Glucometer UNK 12/07/2019 12:00:00 AM EDT active Glucometer eCW1 ([facility]) Lancets - Lancets - 12/07/2019 12:00:00 AM EDT act mukesh Lancets - eCW1 ([facility]) Glucometer UNK 12/07/2019 12:00:00 AM EDT active Glucometer eCW1 ([facility]) Glucometer UNK 12/07/2019 12:00:00 AM EDT active Glucometer eCW1 ([facility]) Glucometer UNK 12/07/2019 12:00:00 AM EDT active Glucometer eCW1 ([facility]) Lancets - Lancets - 12/07/2019 12:00:00 AM EDT act mukesh Lancets - eCW1 ([facility]) Lancets - Lancets - 12/07/2019 12:00:00 AM EDT act mukesh Lancets - eCW1 ([facility]) Lancets - Lancets - 12/07/2019 12:00:00 AM EDT act mukesh Lancets - eCW1 ([facility]) Lancets - Lancets - 12/07/2019 12:00:00 AM EDT act mukesh Lancets - eCW1 ([facility]) Lancets - Lancets - 12/07/2019 12:00:00 AM EDT act mukesh Lancets - eCW1 ([facility]) Lancets - Lancets - 12/07/2019 12:00:00 AM EDT act mukesh Lancets - eCW1 ([facility]) Lancets - Lancets - 12/07/2019 12:00:00 AM EDT act mukesh Lancets - eCW1 ([facility]) Glucometer UNK 12/07/2019 12:00:00 AM EDT active Glucometer eCW1 ([facility]) Lancets - Lancets - 12/07/2019 12:00:00 AM EDT act mukesh Lancets - eCW1 ([facility]) Glucometer UNK 12/07/2019 12:00:00 AM EDT active Glucometer eCW1 ([facility]) Glucometer UNK 12/07/2019 12:00:00 AM EDT active Glucometer eCW1 ([facility]) Glucometer UNK 12/07/2019 12:00:00 AM EDT active Glucometer eCW1 ([facility]) Lancets - Lancets - 12/07/2019 12:00:00 AM EDT act mukesh Lancets - eCW1 ([facility]) Lancets - Lancets - 12/07/2019 12:00:00 AM EDT act mukesh Lancets - eCW1 ([facility]) Glucometer UNK 12/07/2019 12:00:00 AM EDT active Glucometer eCW1 ([facility]) Glucometer UNK 12/07/2019 12:00:00 AM EDT active Glucometer eCW1 ([facility]) Glucometer UNK 12/07/2019 12:00:00 AM EDT active Glucometer eCW1 ([facility]) Glucometer UNK 12/07/2019 12:00:00 AM EDT active Glucometer eCW1 ([facility]) Lancets - Lancets - 12/07/2019 12:00:00 AM EDT act mukesh Lancets - eCW1 ([facility]) Glucometer UNK 12/07/2019 12:00:00 AM EDT active Glucometer eCW1 ([facility]) Glucometer UNK 12/07/2019 12:00:00 AM EDT active Glucometer eCW1 ([facility]) Acetaminophen 325 MG / Hydrocodone Brielle trate 5 MG Oral Tablet Hydrocodone- Acetaminophen 5-325 MG Hydrocodone-Acetaminophen 5-325 MG 12/03/2019 12:00:00 AM EDT 1.0 {tablet_as_needed} active Hydrocodone-Acetaminophen 5-325 MG eCW1 ([facility]) Acetaminophen 325 MG / Hydrocodone Brielle trate 5 MG Oral Tablet Hydrocodone- Acetaminophen 5-325 MG Hydrocodone-Acetaminophen 5-325 MG 12/03/2019 12:00:00 AM EDT 1.0 {tablet_as_needed} active Hydrocodone-Acetaminophen 5-325 MG eCW1 ([facility]) Acetaminophen 325 MG / Hydrocodone Brielle trate 5 MG Oral Tablet Hydrocodone- Acetaminophen 5-325 MG Hydrocodone-Acetaminophen 5-325 MG 12/03/2019 12:00:00 AM EDT 1.0 {tablet_as_needed} active Hydrocodone-Acetaminophen 5-325 MG eCW1 ([facility]) Acetaminophen 325 MG / Hydrocodone Brielle trate 5 MG Oral Tablet Hydrocodone- Acetaminophen 5-325 MG Hydrocodone-Acetaminophen 5-325 MG 12/03/2019 12:00:00 AM EDT 1.0 {tablet_as_needed} active Hydrocodone-Acetaminophen 5-325 MG eCW1 ([facility]) Acetaminophen 325 MG / Hydrocodone Brielle trate 5 MG Oral Tablet Hydrocodone- Acetaminophen 5-325 MG Hydrocodone-Acetaminophen 5-325 MG 12/03/2019 12:00:00 AM EDT 1.0 {tablet_as_needed} active Hydrocodone-Acetaminophen 5-325 MG eCW1 ([facility]) Acetaminophen 325 MG / Hydrocodone Brielle trate 5 MG Oral Tablet Hydrocodone- Acetaminophen 5-325 MG Hydrocodone-Acetaminophen 5-325 MG 12/03/2019 12:00:00 AM EDT 1.0 {tablet_as_needed} active Hydrocodone-Acetaminophen 5-325 MG eCW1 ([facility]) Acetaminophen 325 MG / Hydrocodone Brielle trate 5 MG Oral Tablet Hydrocodone- Acetaminophen 5-325 MG Hydrocodone-Acetaminophen 5-325 MG 12/03/2019 12:00:00 AM EDT 1.0 {tablet_as_needed} active Hydrocodone-Acetaminophen 5-325 MG eCW1 ([facility]) Acetaminophen 325 MG / Hydrocodone Brielle trate 5 MG Oral Tablet Hydrocodone- Acetaminophen 5-325 MG Hydrocodone-Acetaminophen 5-325 MG 12/03/2019 12:00:00 AM EDT 1.0 {tablet_as_needed} active Hydrocodone-Acetaminophen 5-325 MG eCW1 ([facility]) Acetaminophen 325 MG / Hydrocodone Brielle trate 5 MG Oral Tablet Hydrocodone- Acetaminophen 5-325 MG Hydrocodone-Acetaminophen 5-325 MG 12/03/2019 12:00:00 AM EDT 1.0 {tablet_as_needed} active Hydrocodone-Acetaminophen 5-325 MG eCW1 ([facility]) Acetaminophen 325 MG / Hydrocodone Brielle trate 5 MG Oral Tablet Hydrocodone- Acetaminophen 5-325 MG Hydrocodone-Acetaminophen 5-325 MG 12/03/2019 12:00:00 AM EDT 1.0 {tablet_as_needed} active Hydrocodone-Acetaminophen 5-325 MG eCW1 ([facility]) Acetaminophen 325 MG / Hydrocodone Brielle trate 5 MG Oral Tablet Hydrocodone- Acetaminophen 5-325 MG Hydrocodone-Acetaminophen 5-325 MG 12/03/2019 12:00:00 AM EDT 1.0 {tablet_as_needed} active Hydrocodone-Acetaminophen 5-325 MG eCW1 ([facility]) Acetaminophen 325 MG / Hydrocodone Brielle trate 5 MG Oral Tablet Hydrocodone- Acetaminophen 5-325 MG Hydrocodone-Acetaminophen 5-325 MG 12/03/2019 12:00:00 AM EDT 1.0 {tablet_as_needed} active Hydrocodone-Acetaminophen 5-325 MG eCW1 ([facility]) Acetaminophen 325 MG / Hydrocodone Brielle trate 5 MG Oral Tablet Hydrocodone- Acetaminophen 5-325 MG Hydrocodone-Acetaminophen 5-325 MG 12/03/2019 12:00:00 AM EDT 1.0 {tablet_as_needed} active Hydrocodone-Acetaminophen 5-325 MG eCW1 ([facility]) Acetaminophen 325 MG / Hydrocodone Brielle trate 5 MG Oral Tablet Hydrocodone- Acetaminophen 5-325 MG Hydrocodone-Acetaminophen 5-325 MG 12/03/2019 12:00:00 AM EDT 1.0 {tablet_as_needed} active Hydrocodone-Acetaminophen 5-325 MG eCW1 ([facility]) Acetaminophen 325 MG / Hydrocodone Brielle trate 5 MG Oral Tablet Hydrocodone- Acetaminophen 5-325 MG Hydrocodone-Acetaminophen 5-325 MG 12/03/2019 12:00:00 AM EDT 1.0 {tablet_as_needed} active Hydrocodone-Acetaminophen 5-325 MG eCW1 ([facility]) Acetaminophen 325 MG / Hydrocodone Brielle trate 5 MG Oral Tablet Hydrocodone- Acetaminophen 5-325 MG Hydrocodone-Acetaminophen 5-325 MG 12/03/2019 12:00:00 AM EDT 1.0 {tablet_as_needed} active Hydrocodone-Acetaminophen 5-325 MG eCW1 ([facility]) Acetaminophen 325 MG / Hydrocodone Brielle trate 5 MG Oral Tablet Hydrocodone- Acetaminophen 5-325 MG Hydrocodone-Acetaminophen 5-325 MG 12/03/2019 12:00:00 AM EDT 1.0 {tablet_as_needed} active Hydrocodone-Acetaminophen 5-325 MG eCW1 ([facility]) Acetaminophen 325 MG / Hydrocodone Brielle trate 5 MG Oral Tablet Hydrocodone- Acetaminophen 5-325 MG Hydrocodone-Acetaminophen 5-325 MG 12/03/2019 12:00:00 AM EDT 1.0 {tablet_as_needed} active Hydrocodone-Acetaminophen 5-325 MG eCW1 ([facility]) Acetaminophen 325 MG / Hydrocodone Brielle trate 5 MG Oral Tablet Hydrocodone- Acetaminophen 5-325 MG Hydrocodone-Acetaminophen 5-325 MG 12/03/2019 12:00:00 AM EDT 1.0 {tablet_as_needed} active Hydrocodone-Acetaminophen 5-325 MG eCW1 ([facility]) Acetaminophen 325 MG / Hydrocodone Brielle trate 5 MG Oral Tablet Hydrocodone- Acetaminophen 5-325 MG Hydrocodone-Acetaminophen 5-325 MG 12/03/2019 12:00:00 AM EDT 1.0 {tablet_as_needed} active Hydrocodone-Acetaminophen 5-325 MG eCW1 ([facility]) Acetaminophen 325 MG / Hydrocodone Brielle trate 5 MG Oral Tablet Hydrocodone- Acetaminophen 5-325 MG Hydrocodone-Acetaminophen 5-325 MG 12/03/2019 12:00:00 AM EDT 1.0 {tablet_as_needed} active Hydrocodone-Acetaminophen 5-325 MG eCW1 ([facility]) Acetaminophen 325 MG / Hydrocodone Brielle trate 5 MG Oral Tablet Hydrocodone- Acetaminophen 5-325 MG Hydrocodone-Acetaminophen 5-325 MG 12/03/2019 12:00:00 AM EDT 1.0 {tablet_as_needed} active Hydrocodone-Acetaminophen 5-325 MG eCW1 ([facility]) Acetaminophen 325 MG / Hydrocodone Brielle trate 5 MG Oral Tablet Hydrocodone- Acetaminophen 5-325 MG Hydrocodone-Acetaminophen 5-325 MG 12/03/2019 12:00:00 AM EDT 1.0 {tablet_as_needed} active Hydrocodone-Acetaminophen 5-325 MG eCW1 ([facility]) Acetaminophen 325 MG / Hydrocodone Brielle trate 5 MG Oral Tablet Hydrocodone- Acetaminophen 5-325 MG Hydrocodone-Acetaminophen 5-325 MG 12/03/2019 12:00:00 AM EDT 1.0 {tablet_as_needed} active Hydrocodone-Acetaminophen 5-325 MG eCW1 ([facility]) Acetaminophen 325 MG / Hydrocodone Brielle trate 5 MG Oral Tablet Hydrocodone- Acetaminophen 5-325 MG Hydrocodone-Acetaminophen 5-325 MG 12/03/2019 12:00:00 AM EDT 1.0 {tablet_as_needed} active Hydrocodone-Acetaminophen 5-325 MG eCW1 ([facility]) Acetaminophen 325 MG / Hydrocodone Brielle trate 5 MG Oral Tablet Hydrocodone- Acetaminophen 5-325 MG Hydrocodone-Acetaminophen 5-325 MG 12/03/2019 12:00:00 AM EDT 1.0 {tablet_as_needed} active Hydrocodone-Acetaminophen 5-325 MG eCW1 ([facility]) Acetaminophen 325 MG / Hydrocodone Brielle trate 5 MG Oral Tablet Hydrocodone- Acetaminophen 5-325 MG Hydrocodone-Acetaminophen 5-325 MG 12/03/2019 12:00:00 AM EDT 1.0 {tablet_as_needed} active Hydrocodone-Acetaminophen 5-325 MG eCW1 ([facility]) gabapentin 100 MG Oral Capsule gabapentin (NEURONTIN) 100 MG capsule gabapentin (NEURONTIN) 100 MG capsule 11/19/2019 12:00:00 AM EDT 100 mg Oral active Take 100 mg by mouth 2 (two) times a day [facility] potassium chloride SA (K-DUR,KLOR-CON) 10 MEQ tablet 05455-8 11-2511/19/2019 12:00:00 AM EDT 10 meq Oral aborted Take 10 mEq by mouth 2 (two) times a day [facility] torsemide 20 MG Oral Tablet torsemide (DEMADEX) 20 MG tablet torsemide (DEMADEX) 20 MG tablet 11/19/2019 12:00:00 AM EDT 20 mg abor alfred 20 mg 3 (three) times a day [facility] dapagliflozin 5 MG Oral Tablet [Farxiga] FARXIGA 5 MG TABS F ARXIGA 5 MG TABS 11/10/2019 12:00:00 AM EDT aborted [facility] 24 HR Metformin hydrochloride 500 MG Ext ended Release Oral Tablet metFORMIN (GLUCOPHATE-XR) 500 MG 24 hr tablet metFORMIN (GLUCOPHATE-XR) 500 MG 24 hr tablet 11/02/2019 12:00:00 AM EDT aborted [facility] carvedilol 3.125 MG Oral Tablet carvedilol (COREG) 3.1 25 MG tablet carvedilol (COREG) 3.125 MG tablet 09/23/2019 12:00:00 AM EDT 3.125 mg Oral aborted Coronary artery disease due to calcified coronary lesion Take 1 tablet (3.125 mg total) by mouth 2 (two) times a day [facility] Coronary artery disease due to calcified coronary lesion Nystatin 509169 UNT/ML Oral Suspension n ystatin (MYCOSTATIN) 626075 UNIT/ML suspension nystatin (MYCOSTATIN) 971858 UNIT/ML suspension 2019 12:00:00 AM EDT aborted [facility] Losartan Potassium 100 MG Oral Tablet losartan (COZAAR ) 100 MG tablet losartan (COZAAR) 100 MG tablet 12/10/2018 12:00:00 AM EDT 0.75 {tbl} Oral aborted Take 0.75 tablets by mouth once daily [facility] dapagliflozin 10 MG Oral Tablet [Farxiga] FARXIGA 10 MG TABS FARXIGA 10 MG TABS 10/31/2018 12:00:00 AM EDT 0.5 {tbl} Oral aborted Take 0.5 tablets by mouth once daily [facility] Furosemide 20 MG Oral Tablet furosemide (LASIX) 20 MG tablet furosemide (LASIX) 20 MG tablet 06/04/2018 12:00:00 AM EDT 1 {tbl} Oral abor alfred Take 1 tablet by mouth once daily [facility] 3 ML Insulin Glargine 100 UNT/ML Pen Inj jennifer Insulin Glargine (LANTUS SOLOSTAR) 100 UNIT/ML SOPN Insulin Glargine (LANTUS SOLOSTAR) 100 UNIT/ML SOPN 12:00:00 AM EDT 25 U Subcutaneous aborted Inject 25 Units under the skin daily [facility] [place]-3 Acid Ethyl Esters (SENIOR CARE) 1000 MG Oral Capsule omega-3 acid ethyl esters (LOVAZA) 1 g capsule omega-3 acid ethyl esters (LOVAZA) 1 g capsule 011 12:00:00 AM EDT Oral aborted Take by mouth [facility] Insurance Providers Payer name Policy type / Coverage type Policy ID Covered constitution party ID Covered constitution party's relationship to kathleen Policy Kathleen Plan Information [place] [id number] [place] [id number] [place] [id number] 2 [id number] [facility] Medigap Part B [id number] Self MEDICAID [id number] SP [id number] [place] Medigap Part B [id number] Self [facility] U [id number] Self [id number] [facility] [id number] SP [id number] [facility] [id number] SP [id number] MEDICARE BLUE PPO 306 [id number] SP [id number] MEDICARE COMPLETE [id number] SP [id number] Blue Shield [employer] Advantage Medigap Part B [id number] Self MEDICARE COMPLETE [id number] SP [id number] MEDICARE COMPLETE [id number] SP [id number] [facility] [id number] SP [id number] MEDICARE [id number] [place] [id number] [employer] MEDICARE BLUE PPO G [id number] Self [id number] [facility] ([employer]) Commercial [id number] Self Medicare S [id number] S [id number] A Managed Care - Community Plan [facility] P [id number] S [id number] United[employer]care Secure Horizons P [id number] S [id number] Medicare S [id number] S [id number] A [place] P [id number] S [id number] MEDICARE COMPLETE [id number] SP [id number] MEDICARE COMPLETE [id number] SP [id number] Today's Options Commercial [id number] Self [id number] TODAYS OPTIONS [id number] [place] [id number] Todays Options Commercial [id number] .[id number] 0701.0 Self [id number] [facility] Options Medigap Part B [id number] Self [id number] [employer] Commercial [id number] .[id number] 0701.0 Self [id number] [employer] Commercial [id number] .[id number] 0701.0 Self [id number] [facility] Options Medigap Part B [id number] Self 3 [id number] [employer] Commercial [id number] 0701.0 Self [id number] [facility] Options [facility] Part B [id number] Self [id number] [employer] Commercial [id number] 0701.0 Self [id number] [employer] Commercial [id number] 0701.0 Self [id number] [employer] Commercial [id number] 0701.0 Self [id number] [facility] [id number] Self 3 [id number] [facility] [id number] [place] [id number] 2 WELL[employer]ARE [id number] SP [id number] [employer] Commercial [id number] Self [id number] [employer] Commercial [id number] Self [id number] [employer]NA MEDICARE [id number] [place] [id number] HUMANA MEDICARE [id number] [place] [id number] HUMANA MEDICARE [id number] [place] [id number] HUMANA MEDICARE [id number] xxxxxxxxx [id number] HUMANA MEDICARE [id number] [place] [id number] AETNA MEDICARE Medicare [id number] AETNA MEDICARE [id number] [place] 10 [id number] ANSI-Not a Secondary Insurance [id number] ANSI-Commercial [id number] ANSI-Commercial [id number] [employer] Gold/Medicare Commercial [id number] Self [id number] ANSI-Commercial [id number] ANSI-Medicare Part B [id number] ANSI-Not a Secondary Insurance [id number] ANSI-Health Maintenance Organization (HM O) [id number] ANSI-Medicare Part B [id number] ANSI-Commercial [id number] ANSI-Medicare Part B [id number] ANSI-Medicare Part B [id number] ANSI-Health Maintenance Organization ( O) [id number] ANSI-Commercial [id number] [facility]-Health Maintenance Organization ( O) [id number] ANSI-Medicare Part B [id number] ANSI-Medicare Part B [id number] ANSI-Medicare Part B [id number] ANSI-Commercial [id number] [facility] ( O) [id number] ANSI-Medicare Part B [id number] ANSI-Commercial [id number] ANSI-Medicare Part B [id number] ANSI-Health Maintenance Organization ( O) [id number] ANSI-Medicare Part B [id number] ANSI-Commercial [id number] ANSI-Medicare Part B [id number] [facility] ( O) [id number] ANSI-Medicare Part B [id number] ANSI-Medicare Part B [id number] [facility] ( O) [id number] ANSI-Medicare Part B [id number] ANSI-Commercial [id number] ANSI-Health Maintenance Organization ( O) [id number] ANSI-Medicare Part B [id number] ANSI-Medicare Part B [id number] ANSI-Commercial [id number] ANSI-Medicare Part B [id number] ANSI-Medicare Part B [id number] ANSI-Commercial [id number] [id number] ANSI-Health Maintenance Organization ( O) [id number]-9x3i-15e1-[id number] 169186mx-7r2o-36s8-yr50-28691n893290 [employer] [id number] Self [id number] [employer] [id number] ANSI-Medicare Part B 24923bv0-k506-9n4i-p734-5l6225u75365 93193yg7-m507-2t7t-p632-4d2607e19446 ANSI-Commercial j1e6f149-arnr-2222-r2su-jg5t1zl7v340 c1c4r585-wzbg-8906-d7aq-aq7r8pt9q735 ANSI-Medicare Part B 70ea6fo1-3pm6-0hff-d8wv-ddcc1zi7l072 71wl5ww7-3fm3-0vtd-h3kd-gqpq1cq3c308 ANSI-Health Maintenance Organization ( O) 47807c95-4y75-6r10-6v6k-6095rqcok779 47071z59-8r06-1u15-9f2x-9622tcwiu760 ANSI-Medicare Part B [id number]-vj4x4619653u 769a2620-0n09-6524-12nw-bs7h4050150e ANSI-Health Maintenance Organization ( O) 9t8u4933-g102-329r-y141-6mw1779ewxgu 4r9i6885-e431-230t-d994-8pk5355iguwr ANSI-Commercial 1k881z54-1128-44sw-65b5-oz58alci6k58 0o108q71-0551-14dj-25x1-uf52prsc5v74 ANSI-Medicare Part B w0vk4136-75t0-6l65-892i-68w046wse2x3 y3ca5842-94g7-4k76-668z-48y621pan7m2 ANSI-Medicare Part B 03870k07-75r3-3hgo-x73k-9pyup9911ymb 50824v24-66o1-8orx-o27h-5vacw7759tzu [facility] ( O) 48w35w7b-278n-79m2-8403-5q1g6736nw35 84e44z2l-770v-53b1-9528-7x1s5432wr20 ANSI-Medicare Part B 936r118c-02j5-2mi4-fse1-595n898k517b 163d755l-84z4-4vm4-fyu3-989p467z113u ANSI-Commercial b2799f52-827d-0k0l-un63-k8b80443noj3 q5413b43-356s-3x4c-zn45-y9o36551yyq6 ANSI-Medicare Part B 896h6bxn-n9dz-9068-744g-kg4w853f8aru 297v1fnv-h4eh-0700-377a-pm8g494g8abu [facility] ( O) rv4w0qh7-dw90-0c82-z0r5-j2829x49q3a3 xa1i1nn9-zv98-1g35-n3t8-n8567g05n6v7 [facility] 4zd1rgy9-up19-7b37-b07s-cq4f9e69cbwl 8fc6ijs7-zc61-2o59-m98s-ce4b7p22jljk ANSI-Commercial 13sr3v0q-4y8y-9898-my65-497q9x10q497 28ft1t5g-3p9t-2014-sq30-057o2k16w281 ANSI-Medicare Part B 93g5546v-0782-6kw3-309c-64c82qn8s319 92t7652v-9003-1dj9-054o-15f58lo6h855 ANSI-Commercial 72y3h06y-y66u-0fme-33z8-5459l4289qyk 33c7r65e-v59z-5nbp-27n6-0374z8554how ANSI-Medicare Part B 36161f15-e610-67nt-zz50-5vf74k6j3178 45315q10-y715-41lj-dz98-4tj66m0z9854 [facility]-Health Maintenance Organization ( O) fi5zbi70-40qj-0a95-v1vx-j3km1j03c8ia ky2gnn03-94dm-6u08-c8jb-w6ub5l23c9av ANSI-Commercial 4qn31ls3-1822-06v4-7d74-a8p8j7u34c5l 4hr66he7-5338-77b8-5l18-u6k6i3e20y7c ANSI-Medicare Part B h374vi7j-1084-0a47-2297-yr3w6g2kbx6k q028iy8d-9797-7z93-2355-yv3w4h9exw6f [facility]-Health Maintenance Organization ( O) 58p63pi1-5619-17l9-x1qz-v98q11868m31 81c84ct0-0013-78y3-k9md-u06h26464b27 ANSI-Medicare Part B 41l691od-5cx9-7359-250h-5r144z5tw7n7 08t331oe-6ax2-6225-708d-6l351v9ti4f9 [facility] [id number] [facility] [id number] ANSI-Medicare Part B 8c7zhut8-ue90-58st-4962-w29xsz34d9l6 2k6cdcq8-iw14-43ao-1615-r26snc08y2e7 [facility]-Health Maintenance Organization ( O) 33w080dy-w1r3-00nm-i36c-l5ezv85v433i 72n684ni-b8z8-20cv-n37o-e5tvf15k645c ANSI-Medicare Part B [id number]-1453-18p5-0731roq1rr4v 3gl39029-3d7r-2310-73m4-1200rpp3it9e ANSI-Commercial 81un5710-7216-137f-0cl3-f3421ohz6w61 53ol4370-8926-891c-5ji2-d4099yny2q90 ANSI-Medicare Part B x565w4xs-d135-7dv8-7315-629615006e1m f402x5wn-g283-4ao5-7416-785311684s7y ANSI-Medicare Part B [id number]31ac59gz0q 21385909-3o86-1589-1356-4660mc82kl7k ANSI-Commercial 242br7m5-89r3-1p0h-9h56-7yp741j34o6d 554xc1d9-35b3-6q4o-9b87-3ub441z44c6r ANSI-Health Maintenance Organization ( O) 0641tb15-y2r6-9044-06d1-il444y3y9618 8493ju78-h1v2-9585-44g9-os065m3b2588 ANSI-Health Maintenance Organization ( O) t284d76a-6061-919y-9621-vx2g34375gwo b903e17e-9465-026c-7510-bt2u06347qob ANSI-Commercial s77v4932-8145-53im-w474-382mi02b44j0 m95b8711-5067-33cx-l087-392xx22r54j9 ANSI-Medicare Part B 515v665f-x46f-327z-3oj9-w9e12x0aulr2 873v183p-u85x-991h-6vf5-n7l18v4zizs2 ANSI-Medicare Part B 891tg65e-w37b-6z64-a43d-d59575wk1lc9 645vi27e-h57m-0a82-g86s-n50907zs0kv4 [employer] Commercial [id number] 9568.0 Self [id number] [facility] O [id number] S [id number] ANSI-Health Maintenance Organization ( O) [id number]-828z-b6x36642quj9 71108441-42v2-1u0h-597f-w7p95304aek0 ANSI-Commercial q9f5026z-4t0h-8445-g9zm-3wt3784o9sz5 j6y7852s-7o6u-3481-e0nh-3ue9931u1aq2 ANSI-Medicare Part B l4ci255p-d424-749m-92c6-02zh78718l29 y1lq172v-v908-406d-48z1-35gn37642f26 ANSI-Medicare Part B 1r7j93bz-e3c0-3e44-v36f-n7vtft39fr1g 5h3u00lo-x0y5-6v79-g36s-u1chhs10ry7s ANSI-Commercial 551r35jo-5ii4-957a-4914-05i8483ea04c 513u71db-5ch2-886q-7784-26i8560qf29t ANSI-Medicare Part B va33937o-m5zp-799m-k714-165s03dy3p0o xn48487y-c0rm-743a-z566-996a61lx8l6s ANSI-Medicare Part B 927j6e59-914w-1rdi-5ya8-5c17vwzbz0mg 444x1p83-300v-2pni-3cs1-8o26jalor8zc ANSI-Health Maintenance Organization ( O) s9p0045f-4fic-6h37-n58p-48625k07366v h3v5810c-6ouk-6v07-o53r-83047m99077t ANSI-Medicare Part B d2334060-jjcv-7875-942t-4zkz35256739 y0153516-fgqq-1636-104s-4zoe44321304 ANSI-Commercial 904459t7-736b-3613-rp4a-75111a7e40er 462122f1-628s-3034-re2u-14317p6y25tc ANS-Health Maintenance Organization ( O) 326m7273-9493-1z45-h5s9-xzo3f069789o 566r6190-5891-4b76-j7m0-eoo7d675709n ANSI-Medicare Part B 312q851m-h124-143l-d762-pf7079u7387k 284i874v-x319-669q-y291-us3221n4660t ANSI-Medicare Part B o52m5w13-a881-52r3-dv4u-3552912a1l5x h26s0u05-q265-43y9-hu8t-9804912n4p1y ANSI-Medicare Part B 4448hv2x-311c-4y59-8pb9-6g442129s3q4 7995un8o-410q-1b18-2yt4-7q464232b6m7 ANSI-Commercial 40v31496-l1at-7642-2478-svk3425539u4 89p04245-z1qr-5879-3793-qlb4362601k1 ANSI-Medicare Part B 8o4c0ov4-s42y-41a1-5z1i-79p28v0dw0a8 4s4s9ry7-y95m-51z6-5w3w-11d16l3rx8h8 ANSI-Medicare Part B s83lpnp7-zfgo-270s-v09v-3i43691c4l4s f51sjae2-dlot-848e-y21e-3r28262x6j8b ANSI-Commercial 88phip8p-35s5-54na-b450-f2d382915687 94pzxh7o-10h9-32yw-j582-k1h640806628 ANSI-Medicare Part B 9sx98pwf-5qi7-07wx-e5x9-41doyu70ha57 5qq76rwk-8ea4-97lh-s3v4-42epjy05oj21 ANSI-Medicare Part B n43p1543-j256-6l9q-en66-b8686588qvwa v82n4809-r705-1z0t-ww40-h3955357lyhu ANSI-Commercial qgb1k6rt-663u-3i28-3r39-v06x6295ffq1 gkl8f3wy-103m-7n15-0z03-s86w1941jdu7 ANSI-Commercial 6kwz5338-o37x-2681-229e-iac3tg2a8517 1vch1608-o26y-3497-986z-sxr8ee8k6862 ANSI-Medicare Part B 2h67nnlb-4661-68wp-3bq1-t96y30kd308r 5g84sgel-2419-40pk-7vz1-l50p22yf090f ANSI-Medicare Part B 6861fy3f-7g75-3u99-5v40-33229p9q52ze 3194ko5r-2m19-7a17-9n38-13498q8z66yc ANSI-Medicare Part B 4rpf8cg5-3w3p-6606-70l8-wa4u3h2j1155 6xox1vp9-7m4a-3460-18p6-jc8q0e1u9882 ANSI-Commercial b6r25p28-2q8f-08a7-3033-1c4f8025719f k0i52t06-8b3y-05f8-7832-4a8u6681382i ANSI-Medicare Part B 4s1x5ig3-2291-70d0-yih3-190i367d6g3o 5l2q2jt4-4655-44s6-gru8-514k177m9j4d [employer] O [id number] S [id number] ANSI-Medicare Part B 2979do6r-2396-714d-on87-8352u5857t71 2209iz4x-6359-396b-fo34-5182s9574d73 ANSI-Medicare Part B 4q9j2621-1343-0354-8to9-104z45219104 2g7x8451-2212-0592-5vj7-338e09459655 ANSI-Commercial 2srkl0b2-8eqk-7h8j-x695-w29l13h6h3py 4krjs4f0-0tcb-6j9l-z537-a70b13r1q7eg ANSI-Medicare Part B 94l9uy8b-0bst-4681-kmv9-rqvyf12u46ac 01k1ol4z-9lbu-5792-btz4-bthoj16c98bg ANSI-Commercial bk628318-4d5q-632r-430f-g3m2311t25m0 wu134248-2w0w-486j-952p-o3l8819q36g5 ANSI-Medicare Part B 7t72dg6w-trj4-973a-p37a-1fi1x9me276h 3s81tv3j-rvd9-236n-k08n-5ks0c4wx766d ANSI-Medicare Part B 57y46e11-3n6o-163c-m492-s271z07j6853 86q16e87-9j6t-502p-p086-d461k58r5650 ANSI-Commercial 9039bh53-7vy9-4s8k-187p-73k438p98ti4 9004ng18-6zw6-7p6t-097e-97z435e05bl4 ANSI-Medicare Part B f6x18y1a-o0nq-2q52-eh73-667do8q86ef7 p9s58t0b-n4ky-2g79-lm57-722ao7i63zw8 ANSI-Commercial 6506dzm6-q4rt-7nh1-n5v3-ukid36d01693 6584akj7-f3al-8ue6-r2l0-jmfq03n51538 ANSI-Medicare Part B e6w921d8-59c9-8041-1013-4865915856e3 r8s521r2-82g0-6673-7723-4881635409m1 ANSI-Medicare Part B 04k6q185-17um-793r-7ck7-n076201vnd4b 47i0h759-10tn-950d-5xk0-k701629rmq7k ANSI-Medicare Part B 730a14oi-0ajm-61y6-707z-55214b488ba1 616p61ka-1ilm-49h4-833h-85740r597gv4 ANSI-Commercial 6c3336e7-4663-96aq-s575-h9kon372013x 5k5519x5-6215-98nn-v844-d8iag217958x ANSI-Medicare Part B 6227bt32-6w60-7m38-9m4m-3992o9705508 6714xx15-1p60-8w74-2e8v-4010b5916930 ANSI-Medicare Part B 0v065973-4d6u-26t7-0861-93882oca84w8 4p599170-7o3c-94z7-2097-72857qxu91y9 ANSI-Medicare Part B 047x5w4o-3504-8389-y982-48no1d854q2t 862i8c0r-6119-6012-s592-50qs7t512v8s ANSI-Commercial g86vb6a8-27p6-7gpe-k4q1-118cg234qipy i99md8s5-40s3-7pho-q9w9-989fk662owek ANSI-Medicare Part B 00xy08iu-q55m-591p-c4w0-tt57a7a5ro65 21tz82lg-q28u-930z-d2v5-rx14s2v4tv95 ANSI-Medicare Part B 03h2a7y0-s0cj-86ok-6m01-3q2942y258mv 81m9e4d0-h9xq-00ql-7u04-5a4421i645or ANSI-Commercial 0li615y9-o94b-83u8-2abc-h83nj2362s16 8ya560k2-q95z-46j7-7dep-c43ox7706a54 ANSI-Commercial 52653rja-9c4f-7b4k-5266-2a25v94n0384 22880uby-1j3g-4h2x-9294-5i89i92w4061 ANSI-Medicare Part B 0pa16443-36sy-57k9-d7b0-a17620702a13 8qb51276-03ud-54y6-d0h0-k62621222q27 ANSI-Medicare Part B k2it479n-5k41-987d-35s1-1152l4d200y0 e0sz336w-2a51-566b-47v0-9108t6w344h1 ANSI-Medicare Part B n19vs58l-05a3-7d2h-rt51-609k63491xdq j89br53c-93g9-2c1j-mg25-442i50610qyd ANSI-Medicare Part B 70w11405-mj9c-6153-s92b-2037l1946q80 22i16798-kj7j-1502-r47c-8824h9942l20 ANSI-Commercial j4461477-g61y-5809-1jbu-0c0v31xo5977 y8383308-d90h-3473-8fyh-0q0x48rh4455 ANSI-Commercial yx6w2w19-hik6-4rjz-i152-o22667r12909 ud5l7j01-ixt0-4qwl-x891-d97984c78672 ANSI-Medicare Part B 0ey8k551-54go-16k6-743c-6t922ex8te18 4bh5s676-79si-80o5-915x-0v693fh8wy41 ANSI-Medicare Part B 5nl6gy96-7xp4-4863-3759-qive07n44g1e 2ca0lb66-3pq1-9266-8800-arxk90d13s0x ANSI-Medicare Part B 142l136j-548p-101v-266s-495s750o3pg4 781r671w-688w-406j-057u-549b812y4kz4 ANSI-Commercial p2z11112-81qe-1q9w-9845-69r4315m31at l5m35905-37tz-9l4n-3432-29r9269i03je ANSI-Medicare Part B x39r7r03-6656-89y6-42m1-9h4i9370z049 z81z5b82-2046-22i4-63u8-5g9g9501h091 ANSI-Medicare Part B 3598v178-e578-9og5-w586-43axl758jlp2 2475e149-p886-4ba3-l068-10nyg591ngt0 ANSI-Commercial 0hn6qyvg-3z08-61o9-v75q-x9c4fdy681b7 7jy3nioc-6k73-18n6-u66i-u0o0pmo921s4 ANSI-Medicare Part B 0b615ypw-cl3r-914g-z4uv-422892i1m62t 6o313rra-oc6d-061k-w3st-376249o0f13a ANSI-Medicare Part B uh929924-710h-70w4-v1s1-45z9h751rls1 mr348263-933f-18t6-g4t8-06e6f848yua4 ANSI-Medicare Part B 570v8438-1365-9995-f0o8-n5dvabvwb75r 315g1835-9301-6005-g9r6-t9vgmfxiq69x ANSI-Commercial 2ex6i4th-m5f3-2t51-gurc-q9m4exj16e56 5dl3u6xa-v5i2-1d52-gzmk-r0y7pei93i35 ANSI-Medicare Part B 151c574v-z01u-8d9b-d6ih-49ln88514u0v 603o955j-a93b-1y0i-q2kz-64fw36379k3g ANSI-Medicare Part B 035b1kd2-3z0s-7tx4-0777-y9j726k9x428 558n1ep1-0h6r-0el2-1467-v9k865j3h385 ANSI-Commercial n938950z-36a9-116b-s7k5-08n34j13qe52 t956905i-76j2-593z-h5b2-62v97m52ae20 ANSI-Medicare Part B y2444124-qp34-3k0g-3cw5-l3cw8329n708 w2141441-oq22-3y7j-9jc6-p5to0671r135 ANSI-Commercial f300iw2t-ay8p-79c7-6x7a-921g05x983a4 i203nq1q-la9a-15h2-1d8p-206j23e890q8 ANSI-Medicare Part B akd544wq-8x5g-21xa-w836-10835bmn555z tws494kt-0s9p-36hr-g552-07204kzu623a ANSI-Medicare Part B v17je068-kelp-8ot0-d5pe-7x2x625b2276 x47lz493-urag-0dp7-a9ds-7d4r797f8494 ANSI-Medicare Part B 72zgj63k-q3ru-5538-wq40-88798byxmn58 52lxz44y-i8ds-0427-ap58-19212zheat33 ANSI-Commercial 667018m7-b419-4916-d041-9d7tq525o3y1 080672t5-y546-9664-m077-8e3xh765k4f8 ANSI-Medicare Part B 2ymg902t-393g-99pg-6509-14p87s99h01z 8xqj918v-005d-70ub-0857-34h51w13a52h ANSI-Commercial a6m57a17-0814-639z-xo7g-m582157s6g8d x1c25h21-3842-322a-iu7g-r635949f7g9v ANSI-Medicare Part B icsp7c18-z4np-18a3-mksy-05utvknhsbn7 oxdg9y96-v4ov-25k3-oham-66bzqamcgdq0 ANSI-Medicare Part B d01m94gx-02xa-01x1-805d-q8517s975r80 e56h85lm-83pa-35t0-201l-m9079t368y89 ANSI-Commercial nxt2g9m3-9k0w-53x5-p33x-8ymnl2i69514 qbl7m6y9-1t4e-72f2-u87r-0wfun5h32240 ANSI-Medicare Part B t3ge33s8-69i1-81zr-8d39-84973ttl5845 v5wk73f5-40r8-62zu-4m96-20330fiz2762 ANSI-Commercial o35110s2-826k-6210-s372-699342095185 d09012c6-375q-5945-y266-408080511588 ANSI-Medicare Part B f6nf6iht-7535-3a46-1691-9w57w2x9wr42 f8ms3nht-8840-4r02-6019-0t63u5x6il92 ANSI-Medicare Part B a9b394w2-6ox2-2707-0283-vk5k39m8086e p0n361t3-0ex8-9248-5720-fp1j66q1507e ANSI-Medicare Part B 23f9q611-7i46-3dd3-6115-4m1i1bdziox8 83o1d039-6i19-0ko6-2217-4p9v7wfalmn9 ANSI-Medicare Part B 7109w4e7-3009-4688-3kcv-t0lx206ejv68 3022f1g0-1161-3568-1ind-y3xg460ezy47 ANSI-Commercial 0320ld83-j44n-21p3-6225-zvx900xj2202 8263wl51-u89e-33h0-1863-syv046xg5382 ANSI-Commercial r1830w6t-4h6i-0477-j461-4sb532k6u943 f0647f3b-1p4n-5616-a669-3dw285h2a599 ANSI-Medicare Part B ca1q0010-2397-8042-82r4-f85f613w1tx0 it6a9622-7090-3133-91y7-z13x279p8cf0 ANSI-Medicare Part B 70id2d57-d6p3-69m3-n265-1791rdd24njf 62ir6e39-d4u7-52f1-k578-5652rhs37rqq ANSI-Commercial n5gf19d8-58t9-5753-z035-k326h6a5472q b9hc86l8-75u0-1091-o056-a369p4v5994f ANSI-Medicare Part B gi95ce07-gw02-5134-bd09-93vn091725y3 jl06cx14-yu68-3196-np03-50vu584854x5 ANSI-Medicare Part B 27v3p373-y42g-7614-711d-t6q1k79o2red 26d9u722-u74e-3998-724e-j5r0t26g4fcq MEDICARE [id number] A ANSI-Medicare Part B mog51s07-401w-6747-2n80-079297d1sf0r tye84y13-820s-5503-0d71-185506o4zq3q ANSI-Commercial 7b9smo68-7ukw-2s2g-t5l0-8k3ps79674mo 1n9laa24-9wqz-9c5n-n7k2-9x9ih05404ad ANSI-Medicare Part B 55u13422-5c01-97x0-8vmo-56be7vx47in7 01d42696-6g49-53f4-4mes-99wa3my13oa6 ANSI-Medicare Part B 38944hh2-3034-4994-w93p-9l50t43iv700 62070zf9-7969-3433-b25n-1z87r48fj086 ANSI-Medicare Part B 256300rc-889k-56p6-538x-38ubhh879246 888616iq-125s-20x6-518q-48grwu641269 ANSI-Commercial i47vc187-1zb1-2n01-lm33-g209552cpju7 k83tu219-9lh9-0q27-in51-n489877kgpq9 ANSI-Commercial o9ie4502-13gj-46t9-6364-y8tzn3h01094 j8yc6993-89yt-74d5-0767-i4mvp8a46322 ANSI-Medicare Part B c543q367-2gln-595c-3p7o-k6xf126yp4z8 n179l746-4yog-291f-3z9m-g6rs835vb8v6 ANSI-Medicare Part B 8i556419-e810-7k79-8w2b-3i309j0u3ya2 2p606139-f492-7e98-6e8z-3s843k8r5xi4 ANSI-Medicare Part B xb558yn3-0l38-99bc-0m9c-o016l9v2mj3z mp436mk4-1k74-12di-3x1c-v535d7a8rd0e ANSI-Commercial 8lsr3188-bri9-1jvo-3pm2-958p4z1fk3ym 3aut7801-kje4-2fsi-3vq5-220d8i6la7fr ANSI-Medicare Part B 26a0jz65-z5p9-854w-ofp4-ve04730d79i7 57w5cl14-q5e8-703f-zky6-wl13355c88d5 [facility] [id number] SP [id number] [facility] [id number] SP [id number] [facility] [id number] SP [id number] AARP O [id number] S [id number] 2 [employer] Commercial [id number] .[id number] 9568.0 Self [id number] [facility]ARP O [id number] S [id number] [employer] MEDICARE [id number] [place] [employer] Commercial [id number] .1.962578.3.227.99.991.6 9568.0 Self [id number] [employer] MEDICARE PI PI [facility] [id number] SP [id number] [employer] MEDICARE [id number] [place] [id number] [employer] Commercial .[id number] 9568.0 Self [employer] Commercial [id number] .1.599935.3.227.99.991.6 9568.0 Self [employer] Commercial [id number]10.2878 .0 Self [employer] CO 18 011 [employer] MEDICARE [id number] SP [id number] MEDICARE COMPLETE-UHC O [id number] S [id number] [facility] Medicare Commercial [id number] Self [id number] [facility] Medicare Commercial 2.840.1.1138 83.3.227.99.3598.24338.0 Self [employer] 2.840.1.367045 .3.227.99.936.57329.0 Self [employer] [id number] Self MEDICAID [id number] SP [id number] MEDICAID [id number] SP [id number] SELF PAY UNAVAILABLE SP UNAVAILA BLE MEDICAID [id number] SP [id number] MEDICAID [id number] SP [id number] AARP O [id number] S [id number] 2 MEDICARE COMPLETE-UHC O [id number] S [id number] MEDICARE [id number] SP [id number] A BLUE CROSS BLUE SHIELD-CLINIC [id number] 18 [id number] BLUE CROSS BLUE SHIELD-O/P [id number] 18 [id number] MEDICARE BLUE PPO P [id number] S [id number] [facility] [id number] 18 [id number] [facility] Medicare Commercial [id number]..[id number] Self [id number] [employer]NA MEDICARE [id number] SP [id number] HUMANA GOLD [id number] SP [id number] MEDICARE [id number] SP [id number] Medicaid [facility] Other 0 [id number] Self 0 Humana Care Plan Other 0 [id number] Self 0 Medicare Part B of [place] Other 0 [id number] Self 0 HUMANA GOLD [id number] SP [id number] AETNA MEDICARE [id number] SP [id number] MEDICARE [id number] SP [id number] HUMANA GOLD [id number] SP [id number] TODAYS OPTIONSDO NOT USE [id number] SP [id number] [facility] OPTIONS [id number] SP [id number] HUMANA GOLD [id number] SP [id number] 0 HUMANA GOLD O [id number] S [id number] HUMANA GOLD O [id number] S [id number] 0 HUMANA GOLD O [id number] S [id number] HUMANA GOLD [id number] SP [id number] 0 [place] [id number] SP [id number] MEDICAID M [id number] S [id number] Medicare Wrap S [id number] S [id number] [employer] OPTIONS [id number] SP [id number] WELLCARE [id number] SP [id number] HUMANA PPO [id number] SP [id number] [employer] Medigap Part B [id number] Self [id number] [employer] MCR Adv Commercial [id number] Self [id number] ANSI-Not a Secondary Insurance is4vc924-8072-05e9-z02q-5y268 qk6k5e4 tg2eo788-9419-82e7-z11z-7r641lt2k4v6 ANSI-Medicare Part B 5q5u5p5a-6x56-0548-8m5w-7x7bntf7w8rj 9n9o4v0c-1b87-1219-3q1o-3t1sfwz4k2vm ANSI-Commercial 73727oq0-v73d-8953-343l-3jh473276y34 72612cy9-j66s-8904-287n-7xu978264r44 ANSI-Health Maintenance Organization ( O) [id number]-dg12-3hcl-b2l4-23079q3uk7kl 1691jh35-vy23-1wvj-f1e5-52981v0sm7cz ANSI-Commercial 4co74498-7l1m-9uts-x705-d84o3jp14zdt 9jg71811-7x8i-4apq-b164-l26f2ml77pbk ANSI-Medicare Part B fs30928h-062a-7q5v-2787-1rq941zd11ew ht52154b-242a-3b1g-2769-8go908mq73de ANSI-Health Maintenance Organization ( O) [id number]5c7356h7d5 76o38168-50f3-79c5-1630-344p7001b3z5 ANSI-Medicare Part B by56au2c-21p9-8c30-vc55-10335w53b558 ha84pw0p-37t7-8q24-mo89-68879b29t142 ANSI-Commercial asojk1x7-9x75-2k52-k5y8-1y87689m2170 ayxur6u5-5g84-4j02-o3m8-2d43194o4001 ANSI-Medicare Part B 2oe1t996-c1zm-95tb-7810-8v14c8720fm0 0zu0n774-i4zv-68ld-4022-9t87b2421mb7 ANSI-Commercial iu8mv92d-[id number] ANSI-Not a Secondary Insurance [id number] ANSI-Not a Secondary Insurance [id number] ANSI-Medicare Part B [id number] ANSI-Medicare Part B [id number] ANSI-Commercial [id number] ANSI-Health Maintenance Organization ( O) [id number] ANSI-Commercial [id number] SELF PAY ONLY [id number] SP [id number] [employer] PPO [id number] SP [id number] [employer] [id number] SP [id number] ANSI-Health Maintenance Organization ( O) [id number] ANSI-Medicare Part B [id number] ANSI-Medicare Part B [id number] Problems, Conditions, and Diagnoses Code Display Name Description Problem Type Effective Dates Data Source(s) 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) Iron deficiency anemia secondary to bloo Diagnosis 07/06/2020 09:51:07 AM EDT [facility] I10 Essential (primary) hypertension Essential (primary) h ypertension Diagnosis 07/06/2020 09:51:07 AM EDT [facility] R01.1 Cardiac murmur, unspecified Cardiac murmur, unspecifie d Diagnosis 12/30/2019 08:50:51 AM [facility] R94.31 Abnormal electrocardiogram [ECG] [EKG] A bnormal electrocardiogram (ECG) (EKG) Diagnosis 12/30/2019 08:50:51 AM [facility] K21.9 Gastro-esophageal reflux disease without esophagitis Gastro-esophageal reflux disease without Diagnosis 12/30/2019 08:50:51 AM [facility] M19.90 Unspecified osteoarthritis, unspecified site Unspecified osteoarthritis, unspecified Diagnosis 12/30/2019 08:50:51 AM [facility] E03.9 Hypothyroidism, unspecified Hypothyroidism, unspecifie d Diagnosis 12/30/2019 08:50:51 AM [facility] 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 E11.9 Type 2 diabetes mellitus without complic ations Type 2 diabetes mellitus without complic Diagnosis 12/30/2019 08:50:51 AM [facility] E78.5 Hyperlipidemia, unspecified Hyperlipidemia, unspecifie d Diagnosis 12/30/2019 08:50:51 AM [facility] N18.9 Chronic kidney disease, unspecified Chronic kidn ey disease, unspecified Diagnosis 12/30/2019 08:50:[address] 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 Coronary atherosclerosis due to calcifie Diagnosis 12/30/2019 08:50:51 AM [facility] I25.10 Atherosclerotic heart diseas e of [place] coronary artery without angina pectoris Atherosclerotic heart disease of [place] Diagnosis 12/30/2019 08:50:51 AM EST [facility] I50.9 Heart failure, unspecified Heart failure, unspecified Diagnosis 12/30/2019 08:50:51 AM EST [facility] mild to mod cord compression of C5 and C 6 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 Diagnosis 11/13/2019 12:27:00 PM EDT [facility] M54.12 Cervical radiculopathy Cervical radiculopathy Problem 10/19/2020 12:00:00 AM EDT [facility] ([facility] ) M48.02 Spinal stenosis in cervical region Spinal stenos is in cervical region Problem 10/19/2020 12:00:00 AM EDT [facility] ([facility] ) R20.2 [id number] Paresthesia of both hands Problem 10/03/2020 12:00:00 AM EDT eC ([facility]) M43.06 Spondylolysis Spondylolysis Problem 08/09/2020 12:00:00 AM EDT [facility] ([facility]) 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 Problem 08/09/2020 12:00:00 AM EDT [facility] ([facility]) 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 Problem 08/09/2020 12:00:00 AM EDT [facility] ([facility] ) G56.23 Lesion of ulnar nerve Lesion of ulnar nerve Problem 08/09/2020 12:00:00 AM EDT [facility] ([facility]) G25.0 Essential tremor Essential tremor Problem 08/09/2020 12 :00:00 AM EDT [facility] ([facility] ) G25.2 [id number] Intention tremor Problem 07/05/2020 12:00:00 AM EDT eCW ([facility]) R29.6 [id number] Frequent falls Problem 06/13/2020 12:00:00 A M EDT eC ([facility]) R20.2 [id number] Arm paresthesia, right Problem 05/12/2020 12:00:00 AM EDT eCW1 ([facility]) R20.2 [id number] Right leg paresthesias Problem 05/12/2020 12:00:00 AM EDT eCW1 ([facility]) K29.80 64046606 Duodenitis Problem 01/19/2020 12:00:00 AM ES T eCW1 ([facility]) D50.0 [id number] Blood loss anemia Problem 01/19/2020 12:00:0 0 AM EST eCW1 ([facility]) [id number] Essential hypertension Essential hypertension Problem 01/07/2020 12:00:00 AM EST [facility] ([facility]) N18.9 Chronic kidney disease Chronic kidney disease [id number] 12/30/2019 12:00:00 AM EST [facility] I50.32 [id number] Chronic diastolic congestive heart failur e Problem 12/01/2019 12:00:00 AM EDT eCW1 ([facility]) 362.11 Retinopathy Hypertensive Retinopathy Hypertensive Prob juan 04/03/2018 12:00:00 AM EST - 10/05/2020 12:00:00 AM EDT SHANE (Aydin Toribio MD [facility]) 366.16 Age-related nuclear cataract, bilateral Age-related nuclear cataract, bilateral Problem 05/13/2017 12:00:00 AM EDT - 10/05/2020 12:00:00 AM EDT SHANE (Aydin Toribio MD [facility]) Surgeries/Procedures Procedure Description Date Indications Data Source(s) OFFICE OUTPATIENT VISIT 40 MINUTES 10/19/2020 12:00:00 AM EDT [facility] ([facility]) Surgical / procedural history : Cholecys tectomy, Hysterectomy 1989, Right Salivary Gland removed, Fistula removed, 1981, Gallbladder 1982 Surgical / procedural history : Cholecystectomy, Hysterectomy 1989, Right Salivary Gland removed, Fistula removed, 1981, Gallbladder 198210/05/2020 12:00:00 AM EDT SHANE (Aydin mckenna MD [facility]) Extracapsular extraction of lens (procedure) History o f extracapsular cataract extraction PCIOL OD by Dr. Mustafa 12/20/16 ~PCIOL OS by Dr. Mustafa 01/03/17 10/05/2020 12:00:00 AM EDT SHANE (Eric Toribio MD [facility]) OFFICE OUTPATIENT VISIT 15 MINUTES 10/04/2020 12:00:00 AM EDT [facility] ([facility]) ARTHROCENTESIS ASPIR&/INJECTION MAJOR JT/BURSA 021 12:00:00 AM EDT [facility] ([facility]) RADIOLOGIC EXAM KNEE COMPLETE 4/MORE VIEWS 09/21/2020 12:00:00 AM EDT [facility] ([facility]) OFFICE OUTPATIENT VISIT 15 MINUTES 09/21/2020 12:00:00 AM EDT [facility] ([facility]) RADIOLOGIC EXAM KNEE COMPLETE 4/MORE VIEWS 09/21/2020 12:00:00 AM EDT [facility] ([facility]) OFFICE OUTPATIENT VISIT 15 MINUTES 09/20/2020 12:00:00 AM EDT [facility] ([facility]) ARTHROCENTESIS ASPIR&/INJECTION MAJOR JT/BURSA 021 12:00:00 AM EDT [facility] ([facility]) RADEX SPINE LUMBOSACRAL 2/3 VIEWS 08/18/2020 12:00:00 AM EDT [facility] ([facility]) OFFICE OUTPATIENT VISIT 25 MINUTES 08/18/2020 12:00:00 AM EDT [facility] ([facility]) Needle electromyography, each extremity, with related paraspinal areas, when performed, done with nerve conduction, amplitude and latency/velocity study; complete, five or more muscles studied, innervated by three or more nerves or four or more spinal levels (list separately in addition to the code for primary procedure). 08/15/2020 12:00:00 AM EDT MEDEN T ([facility] ) Needle electromyography, each extremity, with related paraspinal areas, when performed, done with nerve conduction, amplitude and latency/velocity study; complete, five or more muscles studied, innervated by three or more nerves or four or more spinal levels (list separately in addition to the code for primary procedure). 08/15/2020 12:00:00 AM EDT MEDEN T ([facility] ) Nerve Conduction 9-10 Studies 08/15/2020 12:00:00 AM E DT [facility] ([facility] ) OFFICE OUTPATIENT NEW 60 MINUTES 08/09/2020 12:00:00 A M EDT [facility] ([facility] ) OFFICE OUTPATIENT VISIT 25 MINUTES 08/01/2020 12:00:00 AM EDT [facility] ([facility] ) RADEX SPINE LUMBOSACRAL 2/3 VIEWS 07/13/2020 12:00:00 AM EDT [facility] ([facility] ) OFFICE OUTPATIENT VISIT 15 MINUTES 07/13/2020 12:00:00 AM EDT [facility] ([facility]) ECG ROUTINE ECG W/LEAST 12 LDS W/I&R <td>POCT AMB EKG</td><td>Routine</td><td>06/08/2020 5:25 PM EDT</td><td> Coronary artery disease due to calcified coronary lesion</td><td> </td> 06/08/2020 09:25:00 PM EDT Coronary artery disease due to calcified coronary lesi on [facility] Coronary artery disease due to calcified coronary lesion OFFICE OUTPATIENT VISIT 40 MINUTES 05/26/2020 12:00:00 AM EDT [facility] ([facility]) OFFICE OUTPATIENT VISIT 10 MINUTES 03/24/2020 12:00:00 AM EST [facility] [facility], ) Endoscopy Upper GI Complex Diagnostic 02/17/2020 12:00 :00 AM EST MEDENT ([facility], ) ARTHROCENTESIS ASPIR&/INJECTION MAJOR JT/BURSA 020 12:00:00 AM EDT MEDENT ([facility]) Therapeutic, Prophylactic Or Diagnostic Injection Subq/Im 11/06/2019 12:00:00 AM EDT MEDENT ([facility]) Results ID Date Data Source TSH 10/03/2020 12:00:00 AM EDT W1 ([facility]) Name Value Range Interpretation Code Description Data Jessica rce(s) Supporting Document(s) 5.420 0.358-3.740 THYROID STIMULATING HORM ONE eCW1 ([facility]) ID Date Data Source Basic Metabolic Profile (BMP) 10/03/2020 12:00:00 AM EDT eCW 1 ([facility]) Name Value Range Interpretation Code Description Data Jessica rce(s) Supporting Document(s) 31 7-18 BLOOD UREA NITROGEN eCW1 (Replaced by [facility]) 310 70-100 GLUCOSE, FASTING eCW1 ([facility]) 1.11 0.55-1.30 CREATININE FOR GFR eCW1 ([facility]) 52.0 >45 GLOMERULAR FILTRATION RATE eCW 1 ([facility]) 137 136-145 SODIUM LEVEL eCW1 ([facility]) 9.5 8.8-10.2 CALCIUM LEVEL eCW1 ([facility]) 103 98-107 CHLORIDE LEVEL eCW1 ([facility]) 21 21-32 CARBON DIOXIDE LEVEL eCW1 ([facility]) 3.8 3.5-5.1 POTASSIUM SERUM eCW1 ([facility]) ID Date Data Source [id number] 10/03/2020 12:00:00 AM EDT eCW1 ([facility]) Name Value Range Interpretation Code Description Data Jessica rce(s) Supporting Document(s) Hemoglobin A1c/Hemoglobin.total in Blood 11.3 HEMOGLOBIN A1c eCW1 ([facility]) ID Date Data Source [id number] 08/27/2020 09:14:00 PM EDT [facility] Name Value Range Interpretation Code Description Data Jessica rce(s) Supporting Document(s) SARS coronavirus 2 RNA [Presence] in Res piratory specimen by AVI with probe detection NEGATIVE [facility] This lab was ordered by [facility] a nd reported by [facility]. ID Date Data Source [id number] 07/23/2020 07:57:00 AM EDT [facility] FASTING: UNKNOWNReceived: 07/23/2020 at 07:55:00 QPT: [facility], [address], [address] [place] [address], [place], [address], Bridger Mckinley MD Received: 07/23/2020 at 07:55:00 QPT : [facility], [address], [address] [place], [address], Bridger Mckinley MD Name Value Range Interpretation Code Description Data Jessica rce(s) Supporting Document(s) Glucose [Mass/volume] in Serum or Plasma 139 mg/dL 65-99 Above high normal [facility] Fasting reference intervalFor someone without known diabetes, a glucosevalue >125 mg/dL indicates that they may havediabetes and this should be confirmed with afollow-up test. Urea nitrogen [Mass/volume] in Serum or Plasma 19 mg/dL 7 -25 Normal (applies to non-numeric results) [facility] Creatinine [Mass/volume] in Serum or Plasma 0.69 mg/dL 0.50 -0.99 Normal (applies to non-numeric results) [facility] For patients >49 years of age, the refer ence limitfor Creatinine is approximately 13% higher for peopleidentified as -[place]. eGFR NON-AFR. [place] 89 mL/min/1.73m2 > OR = 60 Normal ( applies to non-numeric results) [facility] eGFR 104 mL/min/1.73m2 > OR = 60 Normal ( applies to non-numeric results) [facility] Urea nitrogen/Creatinine [Mass Ratio] in Serum or Plasma NOT APPLICABLE (calc) 6-22 [facility] Sodium [Moles/volume] in Serum or Plasma 139 mmol/L 135-146 Normal (applies to non-numeric results) [facility] Potassium [Moles/volume] in Serum or Plasma 4.3 mmol/L 3.5- 5.3 Normal (applies to non-numeric results) [facility] Chloride [Moles/volume] in Serum or Plasma 101 mmol/L 98-11 0 Normal (applies to non-numeric results) [facility] Carbon dioxide, total [Moles/volume] in Serum or Plasma 26 mmol/ L 20-32 Normal (applies to non-numeric results) [facility] Calcium [Mass/volume] in Serum or Plasma 8.6 mg/dL 8.6-10. 4 Normal (applies to non-numeric results) [facility] ID Date Data Source [id number] 07/23/2020 07:57:00 AM EDT [facility] FASTING: UNKNOWNReceived: 07/23/2020 at 07:55:00 QPT: [facility], [address], [address] [place], [address], Bridger Mckinley MD Received: 07/23/2020 at 07:55:00 QPT : [facility], [address], [address] [place], [address], Bridger Mckinley MD Name Value Range Interpretation Code Description Data Jessica rce(s) Supporting Document(s) Leukocytes [#/volume] in Blood by Automated count 7.0 Thousand/u L 3.8-10.8 Normal (applies to non-numeric results) [facility] Erythrocytes [#/volume] in Blood by Automated count 4.39 Million /uL 3.80-5.10 Normal (applies to non-numeric results) [facility] Hemoglobin [Mass/volume] in Blood 12.5 g/dL 11.7-15.5 Normal (applies to non- numeric results) [facility] Hematocrit [Volume Fraction] of Blood by Automated count 38.5 % 35.0-45.0 Normal (applies to non-numeric results) [facility] Erythrocyte mean corpuscular volume [Entitic volume] by Auto mated count 87.7 fL 80.0-100.0 Normal (applies to non-numeric results) [facility] Erythrocyte mean corpuscular hemoglobin [Entitic mass] by Automated count 28.5 pg 27.0-33.0 Normal (applies to non-numeric results) [facility] Erythrocyte mean corpuscular hemoglobin concentration [Mass/volume] by Automated count 32.5 g/dL 32.0-36.0 Normal (applies to non-numeric results) [facility] Erythrocyte distribution width [Ratio] by Automated count 14.6 % 11.0-15.0 Normal (applies to non-numeric results) [facility] Platelets [#/volume] in Blood by Automated count 162 Thousand/uL 140-400 Normal (applies to non-numeric results) [facility] Platelet mean volume [Entitic volume] in Blood by Rae 11. 9 fL 7.5-12.5 Normal (applies to non-numeric results) [facility] NO COLLECTION DATE RECEIVED. WE HAVE USE DTHE DATE THE SPECIMEN WAS [facility]ED [facility] THE COLLECTION DATE. IF THISIS INCORRECT, PLEASE CONTACT CLIENT SERVICES.PHONE NUMBER: [phone] ID Date Data Source [id number] 05/30/2020 03:59:00 PM EDT [facility] Name Value Range Interpretation Code Description Data Jessica rce(s) Supporting Document(s) SARS coronavirus 2 RNA [Presence] in Res piratory specimen by AVI with probe detection NEGATIVE [facility] This lab was ordered by [facility] a nd reported by [facility]. ID Date Data Source [id number] 05/15/2020 11:00:00 AM EDT [facility] Name Value Range Interpretation Code Description Data Jessica rce(s) Supporting Document(s) SARS coronavirus 2 RNA [Presence] in Res piratory specimen by AVI with probe detection NEGATIVE [facility] This lab was ordered by [facility] a nd reported by [facility]. ID Date Data Source [id number] 05/12/2020 10:00:00 AM EDT [facility] Name Value Range Interpretation Code Description Data Jessica rce(s) Supporting Document(s) SARS coronavirus 2 RNA Not Detected [facility] This lab was ordered by [facility] and reported by [facility]. ID Date Data Source [facility] CT ANGIO CHEST 02/24/2020 12:00:00 AM EST eCW1 ([facility]) Name Value Range Interpretation Code Description Data Jessica rce(s) Supporting Document(s) [facility] CT ANGIO CHEST eCW1 ([facility]) ID Date Data Source [id number] 02/23/2020 12:00:00 AM EST eCW1 ([facility]) Name Value Range Interpretation Code Description Data Jessica rce(s) Supporting Document(s) 1932.80 <500 D-DIMER QUANT eCW1 ([facility]) ID Date Data Source [id number] 02/12/2020 11:00:00 AM EST [facility] Name Value Range Interpretation Code Description Data Jessica rce(s) Supporting Document(s) SARS coronavirus 2 RNA [facility] This lab was ordered by [facility] and reported by [facility]. ID Date Data Source CBC - Complete Blood Count 02/09/2020 12:00:00 AM EST eCW1 ( [facility]) Name Value Range Interpretation Code Description Data Jessica rce(s) Supporting Document(s) 4.96 4.00-5.40 RED BLOOD COUNT eCW1 ([facility]) 11.1 12.0-15.5 HEMOGLOBIN eCW1 ([facility]) 8.6 4.0-10.0 WHITE BLOOD COUNT eCW1 ([facility]) 36.7 36.0-47.0 HEMATOCRIT eCW1 ([facility]) 74.0 80.0-96.0 MEAN CORPUSCULAR VOLUME e CW1 ([facility]) 22.4 27.0-33.0 MEAN CORPUSCULAR HEMOGLOB IN eCW1 ([facility]) 23.9 11.5-14.5 RED CELL DISTRIBUTION WID TH eCW1 ([facility]) 30.2 32.0-36.5 MEAN CORPUSCULAR HGB CONC eCW1 ([facility]) 305 150-450 PLATELET COUNT, AUTOMATED eCW1 ([facility]) ID Date Data Source [id number] 01/31/2020 06:30:00 PM EST [facility] Name Value Range Interpretation Code Description Data Jessica rce(s) Supporting Document(s) SARS coronavirus 2 RNA [Presence] in Res piratory specimen by AVI with probe detection [facility] This lab was ordered by [facility] a nd reported by [facility]. Procedure Social History Code Duration Value Status Description Data Source(s ) Smoking 12/12/2020 12:00:00 AM EDT Former Smoker completed Former Smoker eCW1 ([facility]) Smoking 12/12/2020 12:00:00 AM EDT Former Smoker completed Former Smoker eCW1 ([facility]) Smoking 12/12/2020 12:00:00 AM EDT Former Smoker completed Former Smoker eCW1 ([facility]) Smoking 12/12/2020 12:00:00 AM EDT Former Smoker completed Former Smoker eCW1 ([facility]) Alcohol intake 10/12/2020 12:00:00 AM EDT Current drinker of al cohol (finding) completed Current drinker of alcohol (finding) [facility] Tobacco use and exposure 10/12/2020 12:00:00 AM EDT Never used co mpleted Never used [facility] Smoking 10/12/2020 12:00:00 AM EDT Former smoker completed Former smoker [facility] Smoking 10/11/2020 12:00:00 AM EDT Former Smoker completed Former Smoker eCW1 ([facility]) Smoking 10/11/2020 12:00:00 AM EDT Former Smoker completed Former Smoker eCW1 ([facility]) Smoking 10/11/2020 12:00:00 AM EDT Former Smoker completed Former Smoker eCW1 ([facility]) Smoking 10/05/2020 11:56:16 AM EDT Ex-smoker (finding) complet ed Ex-smoker (finding) SHANE (Aydin Toribio MD [facility]) Smoking 10/03/2020 12:00:00 AM EDT Former Smoker completed Former Smoker eCW1 ([facility]) Smoking 10/03/2020 12:00:00 AM EDT Former Smoker completed Former Smoker eCW1 ([facility]) Smoking 10/03/2020 12:00:00 AM EDT Former Smoker completed Former Smoker eCW1 ([facility]) Smoking 10/03/2020 12:00:00 AM EDT Former Smoker completed Former Smoker eCW1 ([facility]) Alcohol intake 09/09/2020 12:00:00 AM EDT Current drinker of al cohol (finding) completed Current drinker of alcohol (finding) [facility] Smoking 08/22/2020 12:00:00 AM EDT Former Smoker completed Former Smoker eCW1 ([facility]) Smoking 08/22/2020 12:00:00 AM EDT Former Smoker completed Former Smoker eCW1 ([facility]) Smoking 08/22/2020 12:00:00 AM EDT Former Smoker completed Former Smoker eCW1 ([facility]) Smoking 08/22/2020 12:00:00 AM EDT Former Smoker completed Former Smoker eCW1 ([facility]) Smoking 08/22/2020 12:00:00 AM EDT Former Smoker completed Former Smoker eCW1 ([facility]) Smoking 08/22/2020 12:00:00 AM EDT Former Smoker completed Former Smoker eCW1 ([facility]) Smoking 08/22/2020 12:00:00 AM EDT Former Smoker completed Former Smoker eCW1 ([facility]) Smoking 08/22/2020 12:00:00 AM EDT Former Smoker completed Former Smoker eCW1 ([facility]) Smoking 08/22/2020 12:00:00 AM EDT Former Smoker completed Former Smoker eCW1 ([facility]) Smoking 08/02/2020 12:00:00 AM EDT Former Smoker completed Former Smoker eCW1 ([facility]) Smoking 08/02/2020 12:00:00 AM EDT Former Smoker completed Former Smoker eCW1 ([facility]) Smoking 07/20/2020 12:00:00 AM EDT Former Smoker completed Former Smoker eCW1 ([facility]) Smoking 07/20/2020 12:00:00 AM EDT Former Smoker completed Former Smoker eCW1 ([facility]) Smoking 07/20/2020 12:00:00 AM EDT Former Smoker completed Former Smoker eCW1 ([facility]) Alcohol intake 07/06/2020 12:00:00 AM EDT Current drinker of al cohol (finding) completed Current drinker of alcohol (finding) [facility] Smoking 07/05/2020 12:00:00 AM EDT Former Smoker completed Former Smoker eCW1 ([facility]) Smoking 07/05/2020 12:00:00 AM EDT Former Smoker completed Former Smoker eCW1 ([facility]) Smoking 07/05/2020 12:00:00 AM EDT Former Smoker completed Former Smoker eCW1 ([facility]) Smoking 07/05/2020 12:00:00 AM EDT Former Smoker completed Former Smoker eCW1 ([facility]) Smoking 07/05/2020 12:00:00 AM EDT Former Smoker completed Former Smoker eCW1 ([facility]) Smoking 06/13/2020 12:00:00 AM EDT Former Smoker completed Former Smoker eCW1 ([facility]) Smoking 06/13/2020 12:00:00 AM EDT Former Smoker completed Former Smoker eCW1 ([facility]) Smoking 06/13/2020 12:00:00 AM EDT Former Smoker completed Former Smoker eCW1 ([facility]) Smoking 06/13/2020 12:00:00 AM EDT Former Smoker completed Former Smoker eCW1 ([facility]) Alcohol intake 06/08/2020 12:00:00 AM EDT Yes completed [facility] Smoking 06/08/2020 12:00:00 AM EDT [facility] 12:00:00 AM EDT Former Smoker completed Former Smoker eCW1 ([facility]) Smoking 05/12/2020 12:00:00 AM EDT Former Smoker completed Former Smoker eCW1 ([facility]) Smoking 05/12/2020 12:00:00 AM EDT Former Smoker completed Former Smoker eCW1 ([facility]) Smoking 05/12/2020 12:00:00 AM EDT Former Smoker completed Former Smoker eCW1 ([facility]) Smoking 05/12/2020 12:00:00 AM EDT Former Smoker completed Former Smoker eCW1 ([facility]) Smoking 05/12/2020 12:00:00 AM EDT Former Smoker completed Former Smoker eCW1 ([facility]) Smoking 05/12/2020 12:00:00 AM EDT Former Smoker completed Former Smoker eCW1 ([facility]) Alcohol intake 04/15/2020 12:00:00 AM EST Yes completed [facility] Smoking 04/15/2020 12:00:00 AM EST Never smoker completed Never s moker [facility] Smoking 04/04/2020 12:00:00 AM EST Former Smoker completed Former Smoker eCW1 ([facility]) Smoking 04/04/2020 12:00:00 AM EST Former Smoker completed Former Smoker eCW1 ([facility]) Smoking 04/04/2020 12:00:00 AM EST Former Smoker completed Former Smoker eCW1 ([facility]) Smoking 04/04/2020 12:00:00 AM EST Former Smoker completed Former Smoker eCW1 ([facility]) Smoking 04/04/2020 12:00:00 AM EST Former Smoker completed Former Smoker eCW1 ([facility]) Smoking 04/04/2020 12:00:00 AM EST Former Smoker completed Former Smoker eCW1 ([facility]) Smoking 04/04/2020 12:00:00 AM EST Former Smoker completed Former Smoker eCW1 ([facility]) Smoking 04/04/2020 12:00:00 AM EST Former Smoker completed Former Smoker eCW1 ([facility]) Smoking 03/08/2020 12:00:00 AM EST Former Smoker completed Former Smoker eCW1 ([facility]) Smoking 03/08/2020 12:00:00 AM EST Former Smoker completed Former Smoker eCW1 ([facility]) Smoking 03/08/2020 12:00:00 AM EST Former Smoker completed Former Smoker eCW1 ([facility]) Smoking 03/08/2020 12:00:00 AM EST Former Smoker completed Former Smoker eCW1 ([facility]) Smoking 03/08/2020 12:00:00 AM EST Former Smoker completed Former Smoker eCW1 ([facility]) Smoking 03/08/2020 12:00:00 AM EST Former Smoker completed Former Smoker eCW1 ([facility]) Smoking 02/23/2020 12:00:00 AM EST Former Smoker completed Former Smoker eCW1 ([facility]) Smoking 02/23/2020 12:00:00 AM EST Former Smoker completed Former Smoker eCW1 ([facility]) Smoking 02/23/2020 12:00:00 AM EST Former Smoker completed Former Smoker eCW1 ([facility]) Smoking 02/23/2020 12:00:00 AM EST Former Smoker completed Former Smoker eCW1 ([facility]) Smoking 02/23/2020 12:00:00 AM EST Former Smoker completed Former Smoker eCW1 ([facility]) Smoking 02/23/2020 12:00:00 AM EST Former Smoker completed Former Smoker eCW1 ([facility]) Smoking 02/09/2020 12:00:00 AM EST Former Smoker completed Former Smoker eCW1 ([facility]) Smoking 02/09/2020 12:00:00 AM EST Former Smoker completed Former Smoker eCW1 ([facility]) Smoking 02/09/2020 12:00:00 AM EST Former Smoker completed Former Smoker eCW1 ([facility]) Smoking 02/09/2020 12:00:00 AM EST Former Smoker completed Former Smoker eCW1 ([facility]) Smoking 02/09/2020 12:00:00 AM EST Former Smoker completed Former Smoker eCW1 ([facility]) Smoking 02/09/2020 12:00:00 AM EST Former Smoker completed Former Smoker eCW1 ([facility]) Smoking 01/26/2020 12:00:00 AM EST Former Smoker completed Former Smoker eCW1 ([facility]) Smoking 01/26/2020 12:00:00 AM EST Former Smoker completed Former Smoker eCW1 ([facility]) Smoking 01/26/2020 12:00:00 AM EST Former Smoker completed Former Smoker eCW1 ([facility]) Smoking 01/26/2020 12:00:00 AM EST Former Smoker completed Former Smoker eCW1 ([facility]) Smoking 01/26/2020 12:00:00 AM EST Former Smoker completed Former Smoker eCW1 ([facility]) Smoking 01/19/2020 12:00:00 AM EST Former Smoker completed Former Smoker eCW1 ([facility]) Alcohol intake 12/30/2019 12:00:00 AM EST Yes completed [facility] Smoking 12/30/2019 12:00:00 AM EST Never smoker completed Never s moker [facility] Smoking 12/01/2019 12:00:00 AM EDT Former Smoker completed Former Smoker eCW1 ([facility]) Smoking 12/01/2019 12:00:00 AM EDT Former Smoker completed Former Smoker eCW1 ([facility]) Smoking 12/01/2019 12:00:00 AM EDT Former Smoker completed Former Smoker eCW1 ([facility]) Smoking 12/01/2019 12:00:00 AM EDT Former Smoker completed Former Smoker eCW1 ([facility]) Smoking 12/01/2019 12:00:00 AM EDT Former Smoker completed Former Smoker eCW1 ([facility]) Smoking 12/01/2019 12:00:00 AM EDT Former Smoker completed Former Smoker eCW1 ([facility]) Smoking 12/01/2019 12:00:00 AM EDT Former Smoker completed Former Smoker eCW1 ([facility]) Smoking 12/01/2019 12:00:00 AM EDT Former Smoker completed Former Smoker eCW1 ([facility]) Smoking 12/01/2019 12:00:00 AM EDT Former Smoker completed Former Smoker eCW1 ([facility]) Smoking 12/01/2019 12:00:00 AM EDT Former Smoker completed Former Smoker eCW1 ([facility]) Smoking 12/01/2019 12:00:00 AM EDT Former Smoker completed Former Smoker eCW1 ([facility]) Smoking 12/01/2019 12:00:00 AM EDT Former Smoker completed Former Smoker eCW1 ([facility]) Smoking 11/06/2019 12:00:00 AM EDT Patient is a former smoker completed Patient is a former smoker MEDENT ([facility], [facility]) Vital Signs ID Date Data Source UNK Name Value Range Interpretation Code Description Data Source(s) Body weight 166 [lb_av] 166 [lb_av] eCW1 ([facility]) Body height 63.5 [in_i] 63.5 [in_i] eCW1 ([facility]) Body mass index (BMI) [Ratio] 28.94 kg/m2 28.94 kg/m2 eCW1 ([facility]) Heart rate 74 /min 74 /min eCW1 ([facility]) Respiratory rate 18 /min 18 /min eCW1 (On license of [facility]) Body temperature 96.5 [degF] 96.5 [degF] eCW1 ( [facility]) Systolic blood pressure 150 mm[Hg] 150 mm[Hg] e CW1 ([facility]) Diastolic blood pressure 70 mm[Hg] 70 mm[Hg] eCW1 ([facility]) Systolic blood pressure 130 mm[Hg] 130 mm[Hg] [facility] Diastolic blood pressure 60 mm[Hg] 60 mm[Hg] [facility] Body height 160 cm 160 cm [facility] Heart rate 65 /min 65 /min [facility] Body weight 79.742 kg 79.742 kg [facility] Body mass index (BMI) [Ratio] 31.14 kg/m2 31.14 kg/m2 [facility] Oxygen saturation in Arterial blood by Pulse oximetry 99 % 99 % [facility] Body weight 177.4 [lb_av] 177.4 [lb_av] eCW1 ([facility]) Body weight 80.47 kg 80.47 kg eCW1 ([facility]) Body height 63.5 [in_i] 63.5 [in_i] W1 ([facility]) Body mass index (BMI) [Ratio] 30.93 kg/m2 30.93 kg/m2 W1 ([facility]) Heart rate 83 /min 83 /min eCW1 ([facility]) Respiratory rate 18 /min 18 /min eCW1 (On license of [facility]) Body temperature 96.5 [degF] 96.5 [degF] eCW1 ( [facility]) Systolic blood pressure 160 mm[Hg] 160 mm[Hg] e CW1 ([facility]) Diastolic blood pressure 82 mm[Hg] 82 mm[Hg] eCW1 ([facility]) [place] body weight 110 [lb_av] 110 [lb_av] MEDEN T ([facility], ) Body weight 79.380 kg 79.380 kg MEDENT ([facility], ) Body surface area Derived from formula 1.81 m2 1.81 m2 MEDENT ([facility], ) Systolic blood pressure 167 mm[Hg] 167 mm[Hg] M EDENT ([facility] ) Diastolic blood pressure 73 mm[Hg] 73 mm[Hg] MEDENT ([facility]) Heart rate 83 /min 83 /min MEDENT ([facility]) Body temperature 95.2 [degF] 95.2 [degF] [facility] ([facility]) Body height 62 [in_i] 62 [in_i] [facility] 5'2" Body weight 175.00 [lb_av] 175.00 [lb_av] MEDEN T ([facility]) Body mass index (BMI) [Ratio] 32.0 kg/m2 32.0 k g/m2 [facility] ([facility]) Body weight 175 [lb_av] 175 [lb_av] eCW1 ([facility]) Body height 63.5 [in_i] 63.5 [in_i] eCW1 ([facility]) Body mass index (BMI) [Ratio] 30.51 kg/m2 30.51 kg/m2 W1 ([facility]) Heart rate 72 /min 72 /min eCW1 ([facility]) Respiratory rate 18 /min 18 /min eCW1 (On license of [facility]) Body temperature 96.5 [degF] 96.5 [degF] eCW1 ( [facility]) Systolic blood pressure 120 mm[Hg] 120 mm[Hg] e CW1 ([facility]) Diastolic blood pressure 60 mm[Hg] 60 mm[Hg] eCW1 ([facility]) Body height 62 [in_i] 62 [in_i] [facility] 5'2" Systolic blood pressure 132 mm[Hg] 132 mm[Hg] M EDENT ([facility]) Body weight 179.00 [lb_av] 179.00 [lb_av] MEDEN T ([facility]) Body mass index (BMI) [Ratio] 32.7 kg/m2 32.7 k g/m2 [facility] ([facility]) Body surface area Derived from formula 1.82 m2 1.82 m2 [facility] ([facility] ) Diastolic blood pressure 70 mm[Hg] 70 mm[Hg] MEDENT ([facility], ) [place] body weight 110 [lb_av] 110 [lb_av] MEDEN T ([facility], ) Body weight 81.194 kg 81.194 kg MEDENT ([facility], ) Systolic blood pressure 148 mm[Hg] 148 mm[Hg] [facility] Diastolic blood pressure 68 mm[Hg] 68 mm[Hg] [facility] Heart rate 59 /min 59 /min [facility] Body height 160 cm 160 cm [facility] Body weight 81.466 kg 81.466 kg [facility] Body mass index (BMI) [Ratio] 31.81 kg/m2 31.81 kg/m2 [facility] Oxygen saturation in Arterial blood by Pulse oximetry 99 % 99 % [facility] Body mass index (BMI) [Ratio] 31.17 kg/m2 31.17 kg/m2 W1 ([facility]) Body weight 178.8 [lb_av] 178.8 [lb_av] eCW1 ([facility]) Body height 63.5 [in_i] 63.5 [in_i] eCW1 ([facility]) Systolic blood pressure 142 mm[Hg] 142 mm[Hg] e CW1 ([facility]) Diastolic blood pressure 84 mm[Hg] 84 mm[Hg] eCW1 ([facility]) Body temperature 97.7 [degF] 97.7 [degF] eCW1 ( [facility]) Heart rate 103 /min 103 /min eCW1 ([facility]ly [facility]) Respiratory rate 18 /min 18 /min eCW1 (On license of [facility]) Body weight 186 [lb_av] 186 [lb_av] eCW1 ([facility]) Body height 63.5 [in_i] 63.5 [in_i] eCW1 ([facility]) Body mass index (BMI) [Ratio] 32.43 kg/m2 32.43 kg/m2 eCW1 ([facility]) Heart rate 77 /min 77 /min eCW1 ([facility]ly [facility]) Respiratory rate 18 /min 18 /min eCW1 (On license of [facility]) Body temperature 96.9 [degF] 96.9 [degF] eCW1 ( [facility]) Systolic blood pressure 142 mm[Hg] 142 mm[Hg] e CW1 ([facility]) Diastolic blood pressure 76 mm[Hg] 76 mm[Hg] eCW1 ([facility]) Body surface area Derived from formula 1.85 m2 1.85 m2 MEDENT ([facility]) Body weight 185.00 [lb_av] 185.00 [lb_av] MEDEN T ([facility]) Body height 62 [in_i] 62 [in_i] MEDENT ([facility]) 5'2" Body mass index (BMI) [Ratio] 33.8 kg/m2 33.8 k g/m2 [facility] ([facility]) Body weight 83.916 kg 83.916 kg [facility] ([facility]) [place] body weight 110 [lb_av] 110 [lb_av] MEDEN T ([facility]) Body surface area Derived from formula 1.85 m2 1.85 m2 [facility] ([facility]) Systolic blood pressure 136 mm[Hg] 136 mm[Hg] M EDENT ([facility]) Diastolic blood pressure 70 mm[Hg] 70 mm[Hg] MEDENT ([facility]) Body height 62 [in_i] 62 [[facility]_i[facility] Body weight 185.00 [lb_av] 185.00 [lb_av] MEDEN T ([facility]) Body mass index (BMI) [Ratio] 33.8 kg/m2 33.8 k g/m2 [facility] ([facility]) [place] body weight 110 [lb_av] 110 [lb_av] MEDEN T ([facility]) Body weight 83.916 kg 83.916 kg MEDMARIA INES ([facility], ) Body weight 183 [lb_av] 183 [lb_av] eCW1 ([facility]) Body height 63.5 [in_i] 63.5 [in_i] eCW1 ([facility]) Body mass index (BMI) [Ratio] 31.91 kg/m2 31.91 kg/m2 eCW1 ([facility]) Heart rate 71 /min 71 /min eCW1 ([facility]) Respiratory rate 18 /min 18 /min eCW1 (On license of [facility]) Body temperature 98.3 [degF] 98.3 [degF] eCW1 ( [facility]) Systolic blood pressure 144 mm[Hg] 144 mm[Hg] e CW1 ([facility]) Diastolic blood pressure 62 mm[Hg] 62 mm[Hg] eCW1 ([facility]) Systolic blood pressure 140 mm[Hg] 140 mm[Hg] [facility] Diastolic blood pressure 80 mm[Hg] 80 mm[Hg] [facility] Oxygen saturation in Arterial blood by Pulse oximetry 97 % 97 % [facility] Heart rate 69 /min 69 /min [facility] Body height 160 cm 160 cm [facility] Body weight 87.091 kg 87.091 kg [facility] Body mass index (BMI) [Ratio] 34.01 kg/m2 34.01 kg/m2 [facility] Body weight 192 [lb_av] 192 [lb_av] eCW1 ([facility]) Diastolic blood pressure 76 mm[Hg] 76 mm[Hg] eCW1 ([facility]) Systolic blood pressure 130 mm[Hg] 130 mm[Hg] e CW1 ([facility]) Body height 63.5 [in_i] 63.5 [in_i] eCW1 ([facility]) Body mass index (BMI) [Ratio] 33.47 kg/m2 33.47 kg/m2 W1 ([facility]) Heart rate 91 /min 91 /min eCW1 ([facility]) Respiratory rate 18 /min 18 /min eCW1 (On license of [facility]) Body temperature 97.4 [degF] 97.4 [degF] eCW1 ( [facility]) Body weight 189.4 [lb_av] 189.4 [lb_av] eCW1 ([facility]) Body height 63.5 [in_i] 63.5 [in_i] eCW1 ([facility]) Body mass index (BMI) [Ratio] 33.02 kg/m2 33.02 kg/m2 eCW1 ([facility]) Heart rate 73 /min 73 /min eCW1 ([facility]) Respiratory rate 18 /min 18 /min eCW1 (On license of [facility]) Body temperature 97.3 [degF] 97.3 [degF] eCW1 ( [facility]) Systolic blood pressure 124 mm[Hg] 124 mm[Hg] e CW1 ([facility]) Diastolic blood pressure 70 mm[Hg] 70 mm[Hg] eCW1 ([facility]) Systolic blood pressure 140 mm[Hg] 140 mm[Hg] [facility] Diastolic blood pressure 80 mm[Hg] 80 mm[Hg] [facility] Oxygen saturation in Arterial blood by Pulse oximetry 99 % 99 % [facility] Heart rate 65 /min 65 /min [facility] Body height 160 cm 160 cm [facility] Body weight 84.369 kg 84.369 kg [facility] Body mass index (BMI) [Ratio] 32.95 kg/m2 32.95 kg/m2 [facility] Body height 63.5 [in_i] 63.5 [in_i] MEDENT ([facility]) 5'3.50" Body weight 190.00 [lb_av] 190.00 [lb_av] MEDEN T ([facility]) Body mass index (BMI) [Ratio] 33.1 kg/m2 33.1 k g/m2 MEDENT ([facility] ) Body weight 188.6 [lb_av] 188.6 [lb_av] eCW1 ([facility]) Body height 63.5 [in_i] 63.5 [in_i] eCW1 ([facility]) Body mass index (BMI) [Ratio] 32.88 kg/m2 32.88 kg/m2 eCW1 ([facility]) Heart rate 61 /min 61 /min eCW1 ([facility]) Respiratory rate 18 /min 18 /min eCW1 (On license of [facility]) Body temperature 97.5 [degF] 97.5 [degF] eCW1 ( [facility]) Systolic blood pressure 118 mm[Hg] 118 mm[Hg] e CW1 ([facility]) Diastolic blood pressure 68 mm[Hg] 68 mm[Hg] eCW1 ([facility]) Body weight 200.4 [lb_av] 200.4 [lb_av] eCW1 ([facility]) Body height 63.5 [in_i] 63.5 [in_i] eCW1 ([facility]) Body mass index (BMI) [Ratio] 34.94 kg/m2 34.94 kg/m2 W1 ([facility]) Systolic blood pressure 130 mm[Hg] 130 mm[Hg] [facility] Diastolic blood pressure 75 mm[Hg] 75 mm[Hg] [facility] Body height 160 cm 160 cm [facility] Heart rate 73 /min 73 /min [facility] Body weight 89.359 kg 89.359 kg [facility] Body mass index (BMI) [Ratio] 34.90 kg/m2 34.90 kg/m2 [facility] Oxygen saturation in Arterial blood by Pulse oximetry 93 % 93 % [facility] Body weight 183 [lb_av] 183 [lb_av] eCW1 ([facility]) Body height 63.5 [in_i] 63.5 [in_i] eCW1 ([facility]) Body mass index (BMI) [Ratio] 31.91 kg/m2 31.91 kg/m2 eCW1 ([facility]) Body weight 183 [lb_av] 183 [lb_av] eCW1 ([facility]) Body temperature 96.4 [degF] 96.4 [degF] eCW1 ( [facility]) Systolic blood pressure 98 mm[Hg] 98 mm[Hg] e CW1 ([facility]) Diastolic blood pressure 56 mm[Hg] 56 mm[Hg] eCW1 ([facility]) Body height 63.5 [in_i] 63.5 [in_i] eCW1 ([facility]) Body mass index (BMI) [Ratio] 31.91 kg/m2 31.91 kg/m2 W1 ([facility]) Heart rate 52 /min 52 /min eCW1 ([facility]) Respiratory rate 18 /min 18 /min eCW1 (On license of [facility]) Body weight 186.00 [lb_av] 186.00 [lb_av] MEDEN T ([facility], ) Body mass index (BMI) [Ratio] 34.0 kg/m2 34.0 k g/m2 [facility], [facility] [place] body weight 110 [lb_av] 110 [lb_av] MEDEN T ([facility], ) Systolic blood pressure 150 mm[Hg] 150 mm[Hg] M EDENT ([facility], ) Diastolic blood pressure 90 mm[Hg] 90 mm[Hg] [facility], ) Body height 62 [in_i] 62 [in_i] [facility] ([facility], ) 5'2" Body weight 84.370 kg 84.370 kg [facility] ([facility], ) Body surface area Derived from formula 1.85 m2 1.85 m2 [facility] ([facility], ) Body weight 185 [lb_av] 185 [lb_av] eCW1 ([facility]) Body height 63.5 [in_i] 63.5 [in_i] eCW1 ([facility]) Body mass index (BMI) [Ratio] 32.25 kg/m2 32.25 kg/m2 eCW1 ([facility]) Heart rate 89 /min 89 /min eCW1 ([facility]) Respiratory rate 20 /min 20 /min eCW1 (On license of [facility]) Body temperature 96.1 [degF] 96.1 [degF] eCW1 ( [facility]) Systolic blood pressure 128 mm[Hg] 128 mm[Hg] e CW1 ([facility]) Diastolic blood pressure 70 mm[Hg] 70 mm[Hg] eCW1 ([facility]) Body weight 198 [lb_av] 198 [lb_av] eCW1 ([facility]) Body height 63.5 [in_i] 63.5 [in_i] eCW1 ([facility]) Body mass index (BMI) [Ratio] 34.52 kg/m2 34.52 kg/m2 eCW1 ([facility]) Heart rate 72 /min 72 /min eCW1 ([facility]) Respiratory rate 20 /min 20 /min eCW1 (On license of [facility]) Body temperature 98.4 [degF] 98.4 [degF] eCW1 ( [facility]) Systolic blood pressure 130 mm[Hg] 130 mm[Hg] e CW1 ([facility]) Diastolic blood pressure 60 mm[Hg] 60 mm[Hg] eCW1 ([facility]) Respiratory rate 20 /min 20 /min eCW1 (On [facility] of [facility]) Body height 63.5 [in_i] 63.5 [in_i] eCW1 ([facility]) Body weight 168 [lb_av] 168 [lb_av] eCW1 ([facility]) Body temperature [degF] eCW1 (On license of [facility]) Body mass index (BMI) [Ratio] 29.29 kg/m2 29.29 kg/m2 eCW1 ([facility]) Heart rate 88 /min 88 /min eCW1 ([facility]) Systolic blood pressure 122 mm[Hg] 122 mm[Hg] e CW1 ([facility]) Diastolic blood pressure 60 mm[Hg] 60 mm[Hg] eCW1 ([facility]) Body height 62 [in_i] 62 [in_i] MEDENT ([facility]) 5'2" Body weight 172.00 [lb_av] 172.00 [lb_av] MEDEN T ([facility]) Body mass index (BMI) [Ratio] 31.5 kg/m2 31.5 k g/m2 [facility] ([facility]) Systolic blood pressure 138 mm[Hg] 138 mm[Hg] M EDENT ([facility]) Diastolic blood pressure 70 mm[Hg] 70 mm[Hg] [facility] ([facility]) [place] body weight 110 [lb_av] 110 [lb_av] MEDEN T ([facility]) Body weight 78.019 kg 78.019 kg [facility] Body surface area Derived from formula 1.79 m2 1.79 m2 [facility] ([facility]) Systolic blood pressure 140 mm[Hg] 140 mm[Hg] M EDENT ([facility]) Body height 54.5 [in_i] 54.5 [[facility]_i] [facility] 4'6.50" Body weight 172.00 [lb_av] 172.00 [lb_av] MEDEN T ([facility]) [place] body weight 100 [lb_av] 100 [lb_av] MEDEN T ([facility]) Body weight 78.019 kg 78.019 kg MEDENT ([facility]) Diastolic blood pressure 72 mm[Hg] 72 mm[Hg] [facility] ([facility]) Body mass index (BMI) [Ratio] 40.7 kg/m2 40.7 k g/m2 [facility] ([facility]) Body surface area Derived from formula 1.63 m2 1.63 m2 [facility] ([facility]) Body weight 175 [lb_av] 175 [lb_av] eCW1 ([facility]) Body height 63.5 [in_i] 63.5 [in_i] eCW1 ([facility]) Body mass index (BMI) [Ratio] 30.51 kg/m2 30.51 kg/m2 eCW1 ([facility]) Heart rate 56 /min 56 /min eCW1 ([facility]) Respiratory rate 18 /min 18 /min eCW1 (On license of [facility]) Body temperature 96.2 [degF] 96.2 [degF] eCW1 ( [facility]) Systolic blood pressure 98 mm[Hg] 98 mm[Hg] e CW1 ([facility]) Diastolic blood pressure 58 mm[Hg] 58 mm[Hg] eCW1 ([facility]) Diastolic blood pressure 58 mm[Hg] 58 mm[Hg] MEDENT ([facility], ) Systolic blood pressure 110 mm[Hg] 110 mm[Hg] M EDENT ([facility], ) Body height 54.5 [in_i] 54.5 [in_i] MEDENT ([facility], ) 4'6.50" Body weight 170.00 [lb_av] 170.00 [lb_av] MEDEN T ([facility], ) Body mass index (BMI) [Ratio] 40.2 kg/m2 40.2 k g/m2 [facility], ) [place] body weight 100 [lb_av] 100 [lb_av] MEDEN T ([facility], ) Body weight 77.112 kg 77.112 kg MEDENT ([facility], ) Body surface area Derived from formula 1.62 m2 1.62 m2 [facility] ([facility], ) Systolic blood pressure 140 mm[Hg] 140 mm[Hg] [facility] Diastolic blood pressure 70 mm[Hg] 70 mm[Hg] [facility] Heart rate 66 /min 66 /min [facility] Body height 160 cm 160 cm [facility] Body weight 75.297 kg 75.297 kg [facility] Body mass index (BMI) [Ratio] 29.41 kg/m2 29.41 kg/m2 [facility] Oxygen saturation in Arterial blood by Pulse oximetry 97 % 97 % [facility] Body weight 166 [lb_av] 166 [lb_av] eCW1 ([facility]) Body height 63.5 [in_i] 63.5 [in_i] eCW1 ([facility]) Body temperature 96.3 [degF] 96.3 [degF] eCW1 ( [facility]) Body mass index (BMI) [Ratio] 28.94 kg/m2 28.94 kg/m2 eCW1 ([facility]) Systolic blood pressure 140 mm[Hg] 140 mm[Hg] e CW1 ([facility]) Heart rate 79 /min 79 /min eCW1 ([facility]) Respiratory rate 18 /min 18 /min eCW1 (On license of [facility]) Diastolic blood pressure 66 mm[Hg] 66 mm[Hg] eCW1 ([facility]) Systolic blood pressure 196 mm[Hg] 196 mm[Hg] M EDENT ([facility], [facility]) states she took her medication this morn ing Diastolic blood pressure 98 mm[Hg] 98 mm[Hg] MEDENT ([facility]) states she took her medication this morn ing Heart rate 74 /min 74 /min MEDENT ([facility], [facility]) Oxygen saturation in Arterial blood by Pulse oximetry 99 % 99 % MEDENT ([facility], [facility]) Body temperature 97.9 [degF] 97.9 [degF] MEDENT ([facility], [facility]) Body weight 184.00 [lb_av] 184.00 [lb_av] MEDEN T ([facility], [facility]) Body height 65 [in_i] 65 [in_i] MEDENT ([facility]) 5'5" Body mass index (BMI) [Ratio] 30.6 kg/m2 30.6 k g/m2 MEDENT ([facility]) Patient Treatment Plan of Care Planned Activity Planned Date Details Description Data Source (s) Levothyroxine Sodium 0.075 MG Oral Tablet 12/13/2020 12:00:00 AM ED T eCW1 ([facility]) Levothyroxine Sodium 0.075 MG Oral Tablet 12/13/2020 12:00:00 AM ED T eCW1 ([facility]) Levothyroxine Sodium 0.075 MG Oral Tablet 12/13/2020 12:00:00 AM ED T eCW1 ([facility]) duloxetine 60 MG Delayed Release Oral Capsule 12/12/2020 12:00:00 A M EDT eCW1 ([facility]) duloxetine 60 MG Delayed Release Oral Capsule 12/12/2020 12:00:00 A M EDT eCW1 ([facility]) duloxetine 60 MG Delayed Release Oral Capsule 12/12/2020 12:00:00 A M EDT eCW1 ([facility]) duloxetine 60 MG Delayed Release Oral Capsule 12/12/2020 12:00:00 A M EDT eCW1 ([facility]) Acetaminophen 325 MG / Hydrocodone Bitartrate 7.5 MG O ral Tablet 12/01/2020 12:00:00 AM EDT eCW1 ([facility]) Triamcinolone Acetonide 1 MG/ML Topical Cream 10/11/2020 12:00:00 A M EDT eCW1 ([facility]) Triamcinolone Acetonide 1 MG/ML Topical Cream 10/11/2020 12:00:00 A M EDT eCW1 ([facility]) Triamcinolone Acetonide 1 MG/ML Topical Cream 10/11/2020 12:00:00 A M EDT eCW1 ([facility]) Levothyroxine Sodium 0.05 MG Oral Tablet 10/04/2020 12:00:00 AM EDT eCW1 ([facility]) Levothyroxine Sodium 0.05 MG Oral Tablet 10/04/2020 12:00:00 AM EDT eCW1 ([facility]) Levothyroxine Sodium 0.05 MG Oral Tablet 10/04/2020 12:00:00 AM EDT eCW1 ([facility]) Acetaminophen 325 MG / Hydrocodone Bitartrate 7.5 MG O ral Tablet 10/03/2020 12:00:00 AM EDT eCW1 ([facility]) Acetaminophen 325 MG / Hydrocodone Bitartrate 7.5 MG O ral Tablet 10/03/2020 12:00:00 AM EDT eCW1 ([facility]) Acetaminophen 325 MG / Hydrocodone Bitartrate 7.5 MG O ral Tablet 10/03/2020 12:00:00 AM EDT eCW1 ([facility]) Acetaminophen 325 MG / Hydrocodone Bitartrate 7.5 MG O ral Tablet 10/03/2020 12:00:00 AM EDT eCW1 ([facility]) Acetaminophen 325 MG / Hydrocodone Bitartrate 7.5 MG O ral Tablet 10/03/2020 12:00:00 AM EDT eCW1 ([facility]) Acetaminophen 325 MG / Hydrocodone Bitartrate 7.5 MG O ral Tablet 10/03/2020 12:00:00 AM EDT eCW1 ([facility]) Acetaminophen 325 MG / Hydrocodone Bitartrate 7.5 MG O ral Tablet 10/03/2020 12:00:00 AM EDT eCW1 ([facility]) Acetaminophen 325 MG / Hydrocodone Bitartrate 7.5 MG O ral Tablet 10/03/2020 12:00:00 AM EDT eCW1 ([facility]) Amlodipine 2.5 MG Oral Tablet 09/30/2020 12:00:00 AM EDT eCW1 ([facility]) Amlodipine 2.5 MG Oral Tablet 09/30/2020 12:00:00 AM EDT eCW1 ([facility]) Amlodipine 2.5 MG Oral Tablet 09/30/2020 12:00:00 AM EDT [facility] Amlodipine 2.5 MG Oral Tablet 09/30/2020 12:00:00 AM EDT eCW1 ([facility]) Amlodipine 2.5 MG Oral Tablet 09/30/2020 12:00:00 AM EDT eCW1 ([facility]) Amlodipine 2.5 MG Oral Tablet 09/30/2020 12:00:00 AM EDT eCW1 ([facility]) Acetaminophen 325 MG / Hydrocodone Bitartrate 7.5 MG O ral Tablet 09/12/2020 12:00:00 AM EDT eCW1 ([facility]) Acetaminophen 325 MG / Hydrocodone Bitartrate 7.5 MG O ral Tablet 09/12/2020 12:00:00 AM EDT eCW1 ([facility]) Acetaminophen 325 MG / Hydrocodone Bitartrate 7.5 MG O ral Tablet 09/12/2020 12:00:00 AM EDT eCW1 ([facility]) Acetaminophen 325 MG / Hydrocodone Bitartrate 7.5 MG O ral Tablet 09/12/2020 12:00:00 AM EDT eCW1 ([facility]) Hospital bed _ 08/22/2020 12:00:00 AM EDT eCW1 ([facility]) Hospital bed _ 08/22/2020 12:00:00 AM EDT eCW1 ([facility]) Hospital bed _ 08/22/2020 12:00:00 AM EDT eCW1 ([facility]) Hospital bed _ 08/22/2020 12:00:00 AM EDT eCW1 ([facility]) Hospital bed _ 08/22/2020 12:00:00 AM EDT eCW1 ([facility]) Hospital bed _ 08/22/2020 12:00:00 AM EDT eCW1 ([facility]) Hospital bed _ 08/22/2020 12:00:00 AM EDT eCW1 ([facility]) Hospital bed _ 08/22/2020 12:00:00 AM EDT eCW1 ([facility]) Hospital bed _ 08/22/2020 12:00:00 AM EDT eCW1 ([facility]) Acetaminophen 325 MG / Hydrocodone Bitartrate 7.5 MG O ral Tablet 08/02/2020 12:00:00 AM EDT eCW1 ([facility]) Acetaminophen 325 MG / Hydrocodone Bitartrate 7.5 MG O ral Tablet 08/02/2020 12:00:00 AM EDT eCW1 ([facility]) Blood Pressure Monitor - 07/29/2020 12:00:00 AM EDT eCW1 ([facility]) Blood Pressure Kit - 07/22/2020 12:00:00 AM EDT eCW1 ([facility]) Blood Pressure Kit - 07/22/2020 12:00:00 AM EDT eCW1 ([facility]) Blood Pressure Kit - 07/22/2020 12:00:00 AM EDT eCW1 ([facility]) Spironolactone 25 MG Oral Tablet 07/06/2020 12:00:00 AM EDT [facility] Losartan Potassium 100 MG Oral Tablet 07/06/2020 12:00:00 AM EDT [facility] empagliflozin 10 MG Oral Tablet [Jardiance] 07/05/2020 12:00:00 AM EDT eCW1 ([facility]) empagliflozin 10 MG Oral Tablet [Jardiance] 07/05/2020 12:00:00 AM EDT eCW1 ([facility]) empagliflozin 10 MG Oral Tablet [Jardiance] 07/05/2020 12:00:00 AM EDT eCW1 ([facility]) empagliflozin 10 MG Oral Tablet [Jardiance] 07/05/2020 12:00:00 AM EDT eCW1 ([facility]) empagliflozin 10 MG Oral Tablet [Jardiance] 07/05/2020 12:00:00 AM EDT eCW1 ([facility]) empagliflozin 10 MG Oral Tablet [Jardiance] 07/05/2020 12:00:00 AM EDT eCW1 ([facility]) empagliflozin 10 MG Oral Tablet [Jardiance] 07/05/2020 12:00:00 AM EDT eCW1 ([facility]) empagliflozin 10 MG Oral Tablet [Jardiance] 07/05/2020 12:00:00 AM EDT eCW1 ([facility]) empagliflozin 10 MG Oral Tablet [Jardiance] 07/05/2020 12:00:00 AM EDT eCW1 ([facility]) empagliflozin 10 MG Oral Tablet [Jardiance] 07/05/2020 12:00:00 AM EDT eCW1 ([facility]) empagliflozin 10 MG Oral Tablet [Jardiance] 07/05/2020 12:00:00 AM EDT eCW1 ([facility]) empagliflozin 25 MG Oral Tablet [Jardiance] 07/05/2020 12:00:00 AM EDT eCW1 ([facility]) empagliflozin 25 MG Oral Tablet [Jardiance] 07/05/2020 12:00:00 AM EDT eCW1 ([facility]) empagliflozin 10 MG Oral Tablet [Jardiance] 07/05/2020 12:00:00 AM EDT eCW1 ([facility]) empagliflozin 10 MG Oral Tablet [Jardiance] 07/05/2020 12:00:00 AM EDT eCW1 ([facility]) torsemide 10 MG Oral Tablet 06/08/2020 12:00:00 AM EDT [facility] Losartan Potassium 50 MG Oral Tablet 06/08/2020 12:00:00 AM EDT [facility] Acetaminophen 325 MG / Hydrocodone Bitartrate 5 MG Ora l Tablet 06/07/2020 12:00:00 AM EDT eCW1 ([facility]) Acetaminophen 325 MG / Hydrocodone Bitartrate 5 MG Ora l Tablet 06/07/2020 12:00:00 AM EDT eCW1 ([facility]) Acetaminophen 325 MG / Hydrocodone Bitartrate 5 MG Ora l Tablet 06/07/2020 12:00:00 AM EDT eCW1 ([facility]) Acetaminophen 325 MG / Hydrocodone Bitartrate 5 MG Ora l Tablet 06/07/2020 12:00:00 AM EDT eCW1 ([facility]) Acetaminophen 325 MG / Hydrocodone Bitartrate 5 MG Ora l Tablet 06/07/2020 12:00:00 AM EDT eCW1 ([facility]) Acetaminophen 325 MG / Hydrocodone Bitartrate 5 MG Ora l Tablet 06/07/2020 12:00:00 AM EDT eCW1 ([facility]) Acetaminophen 325 MG / Hydrocodone Bitartrate 5 MG Ora l Tablet 06/07/2020 12:00:00 AM EDT eCW1 ([facility]) 24 HR Metformin hydrochloride 500 MG Extended Release Oral Tablet 06/07/2020 12:00:00 AM EDT [facility] empagliflozin 10 MG Oral Tablet [Jardiance] 06/07/2020 12:00:00 AM EDT [facility] Levothyroxine Sodium 0.025 MG Oral Tablet 06/03/2020 12:00:00 AM ED T eCW1 ([facility]) Levothyroxine Sodium 0.025 MG Oral Tablet 06/03/2020 12:00:00 AM ED T eCW1 ([facility]) Levothyroxine Sodium 0.025 MG Oral Tablet 06/03/2020 12:00:00 AM ED T eCW1 ([facility]) Levothyroxine Sodium 0.025 MG Oral Tablet 06/03/2020 12:00:00 AM ED T eCW1 ([facility]) Levothyroxine Sodium 0.025 MG Oral Tablet 06/03/2020 12:00:00 AM ED T eCW1 ([facility]) Levothyroxine Sodium 0.025 MG Oral Tablet 06/03/2020 12:00:00 AM ED T eCW1 ([facility]) Levothyroxine Sodium 0.025 MG Oral Tablet 06/03/2020 12:00:00 AM ED T eCW1 ([facility]) Levothyroxine Sodium 0.025 MG Oral Tablet 06/03/2020 12:00:00 AM ED T eCW1 ([facility]) Levothyroxine Sodium 0.025 MG Oral Tablet 06/03/2020 12:00:00 AM ED T eCW1 ([facility]) Levothyroxine Sodium 0.025 MG Oral Tablet 06/03/2020 12:00:00 AM ED T eCW1 ([facility]) Losartan Potassium 50 MG Oral Tablet 05/17/2020 12:00:00 AM EDT eCW1 ([facility]) Losartan Potassium 50 MG Oral Tablet 05/17/2020 12:00:00 AM EDT eCW1 ([facility]) Losartan Potassium 50 MG Oral Tablet 05/17/2020 12:00:00 AM EDT eCW1 ([facility]) Losartan Potassium 50 MG Oral Tablet 05/17/2020 12:00:00 AM EDT eCW1 ([facility]) Losartan Potassium 100 MG Oral Tablet 05/17/2020 12:00:00 AM EDT eCW1 ([facility]) Losartan Potassium 100 MG Oral Tablet 05/17/2020 12:00:00 AM EDT eCW1 ([facility]) Losartan Potassium 100 MG Oral Tablet 05/17/2020 12:00:00 AM EDT eCW1 ([facility]) Losartan Potassium 100 MG Oral Tablet 05/17/2020 12:00:00 AM EDT eCW1 ([facility]) Losartan Potassium 100 MG Oral Tablet 05/17/2020 12:00:00 AM EDT eCW1 ([facility]) Losartan Potassium 100 MG Oral Tablet 05/17/2020 12:00:00 AM EDT eCW1 ([facility]) Losartan Potassium 100 MG Oral Tablet 05/17/2020 12:00:00 AM EDT eCW1 ([facility]) Losartan Potassium 50 MG Oral Tablet 05/17/2020 12:00:00 AM EDT [facility] Losartan Potassium 100 MG Oral Tablet 05/17/2020 12:00:00 AM EDT eCW1 ([facility]) Losartan Potassium 100 MG Oral Tablet 05/17/2020 12:00:00 AM EDT eCW1 ([facility]) Acetaminophen 325 MG / Hydrocodone Bitartrate 5 MG Ora l Tablet 05/12/2020 12:00:00 AM EDT eCW1 ([facility]) empagliflozin 10 MG Oral Tablet [Jardiance] 04/21/2020 12:00:00 AM EST eCW1 ([facility]) empagliflozin 10 MG Oral Tablet [Jardiance] 04/21/2020 12:00:00 AM EST eCW1 ([facility]) empagliflozin 10 MG Oral Tablet [Jardiance] 04/21/2020 12:00:00 AM EST eCW1 ([facility]) empagliflozin 10 MG Oral Tablet [Jardiance] 04/21/2020 12:00:00 AM EST eCW1 ([facility]) empagliflozin 10 MG Oral Tablet [Jardiance] 04/21/2020 12:00:00 AM EST eCW1 ([facility]) carvedilol 6.25 MG Oral Tablet 04/15/2020 12:00:00 AM EST [facility] Acetaminophen 325 MG / Hydrocodone Bitartrate 5 MG Ora l Tablet 04/11/2020 12:00:00 AM EST eCW1 ([facility]) Acetaminophen 325 MG / Hydrocodone Bitartrate 5 MG Ora l Tablet 04/11/2020 12:00:00 AM EST eCW1 ([facility]) Acetaminophen 325 MG / Hydrocodone Bitartrate 5 MG Ora l Tablet 04/11/2020 12:00:00 AM EST eCW1 ([facility]) Acetaminophen 325 MG / Hydrocodone Bitartrate 5 MG Ora l Tablet 04/11/2020 12:00:00 AM EST eCW1 ([facility]) Acetaminophen 325 MG / Hydrocodone Bitartrate 5 MG Ora l Tablet 04/11/2020 12:00:00 AM EST eCW1 ([facility]) Acetaminophen 325 MG / Hydrocodone Bitartrate 5 MG Ora l Tablet 04/11/2020 12:00:00 AM EST eCW1 ([facility]) Acetaminophen 325 MG / Hydrocodone Bitartrate 5 MG Ora l Tablet 04/11/2020 12:00:00 AM EST eCW1 ([facility]) Amlodipine 2.5 MG Oral Tablet 04/04/2020 12:00:00 AM EST [facility] Amlodipine 2.5 MG Oral Tablet 04/04/2020 12:00:00 AM EST eCW1 ([facility]) Amlodipine 2.5 MG Oral Tablet 04/04/2020 12:00:00 AM EST eCW1 ([facility]) Amlodipine 2.5 MG Oral Tablet 04/04/2020 12:00:00 AM EST eCW1 ([facility]) Amlodipine 2.5 MG Oral Tablet 04/04/2020 12:00:00 AM EST eCW1 ([facility]) Amlodipine 2.5 MG Oral Tablet 04/04/2020 12:00:00 AM EST eCW1 ([facility]) Amlodipine 2.5 MG Oral Tablet 04/04/2020 12:00:00 AM EST eCW1 ([facility]) Amlodipine 2.5 MG Oral Tablet 04/04/2020 12:00:00 AM EST eCW1 ([facility]) Amlodipine 2.5 MG Oral Tablet 04/04/2020 12:00:00 AM EST eCW1 ([facility]) Amlodipine 2.5 MG Oral Tablet 04/04/2020 12:00:00 AM EST eCW1 ([facility]) Potassium Chloride 10 MEQ Extended Release Oral Tablet 04/02/2020 12:00:00 AM EST [facility] 24 HR Metformin hydrochloride 500 MG Extended Release Oral Tablet 03/19/2020 12:00:00 AM EST [facility] Sucralfate 1000 MG Oral Tablet 03/08/2020 12:00:00 AM EST [facility] Sucralfate 1000 MG Oral Tablet [Carafate] 03/08/2020 12:00:00 AM ES T eCW1 ([facility]) Sucralfate 1000 MG Oral Tablet [Carafate] 03/08/2020 12:00:00 AM ES T eCW1 ([facility]) Sucralfate 1000 MG Oral Tablet [Carafate] 03/08/2020 12:00:00 AM ES T eCW1 ([facility]) Sucralfate 1000 MG Oral Tablet [Carafate] 03/08/2020 12:00:00 AM ES T eCW1 ([facility]) Sucralfate 1000 MG Oral Tablet [Carafate] 03/08/2020 12:00:00 AM ES T eCW1 ([facility]) Sucralfate 1000 MG Oral Tablet [Carafate] 03/08/2020 12:00:00 AM ES T eCW1 ([facility]) Acetaminophen 325 MG / Hydrocodone Bitartrate 5 MG Ora l Tablet 02/25/2020 12:00:00 AM EST eCW1 ([facility]) Acetaminophen 325 MG / Hydrocodone Bitartrate 5 MG Ora l Tablet 02/25/2020 12:00:00 AM EST eCW1 ([facility]) Acetaminophen 325 MG / Hydrocodone Bitartrate 5 MG Ora l Tablet 02/25/2020 12:00:00 AM EST eCW1 ([facility]) torsemide 10 MG Oral Tablet 02/24/2020 12:00:00 AM EST eCW1 ([facility]) torsemide 10 MG Oral Tablet 02/24/2020 12:00:00 AM EST eCW1 ([facility]) torsemide 10 MG Oral Tablet 02/24/2020 12:00:00 AM EST eCW1 ([facility]) torsemide 10 MG Oral Tablet 02/24/2020 12:00:00 AM EST eCW1 ([facility]) torsemide 20 MG Oral Tablet 02/24/2020 12:00:00 AM EST eCW1 ([facility]) torsemide 20 MG Oral Tablet 02/24/2020 12:00:00 AM EST eCW1 ([facility]) torsemide 20 MG Oral Tablet 02/24/2020 12:00:00 AM EST eCW1 ([facility]) torsemide 20 MG Oral Tablet 02/24/2020 12:00:00 AM EST eCW1 ([facility]) torsemide 20 MG Oral Tablet 02/24/2020 12:00:00 AM EST eCW1 ([facility]) torsemide 20 MG Oral Tablet 02/24/2020 12:00:00 AM EST eCW1 ([facility]) torsemide 20 MG Oral Tablet 02/24/2020 12:00:00 AM EST eCW1 ([facility]) torsemide 20 MG Oral Tablet 02/24/2020 12:00:00 AM EST eCW1 ([facility]) torsemide 20 MG Oral Tablet 02/24/2020 12:00:00 AM EST eCW1 ([facility]) torsemide 20 MG Oral Tablet 02/24/2020 12:00:00 AM EST eCW1 ([facility]) torsemide 20 MG Oral Tablet 02/24/2020 12:00:00 AM EST eCW1 ([facility]) torsemide 20 MG Oral Tablet 02/24/2020 12:00:00 AM EST eCW1 ([facility]) torsemide 20 MG Oral Tablet 02/24/2020 12:00:00 AM EST eCW1 ([facility]) torsemide 20 MG Oral Tablet 02/24/2020 12:00:00 AM EST eCW1 ([facility]) torsemide 20 MG Oral Tablet 02/24/2020 12:00:00 AM EST eCW1 ([facility]) torsemide 20 MG Oral Tablet 02/24/2020 12:00:00 AM EST eCW1 ([facility]) torsemide 20 MG Oral Tablet 02/24/2020 12:00:00 AM EST eCW1 ([facility]) torsemide 20 MG Oral Tablet 02/24/2020 12:00:00 AM EST eCW1 ([facility]) torsemide 20 MG Oral Tablet 02/24/2020 12:00:00 AM EST eCW1 ([facility]) torsemide 20 MG Oral Tablet 02/24/2020 12:00:00 AM EST eCW1 ([facility]) Walker - 02/15/2020 12:00:00 AM EST e CW1 ([facility]) Walker - 02/15/2020 12:00:00 AM EST e CW1 ([facility]) Walker - 02/15/2020 12:00:00 AM EST e CW1 ([facility]) Test Strips - 02/09/2020 12:00:00 AM EST eCW1 ([facility]) Test Strips - 02/09/2020 12:00:00 AM EST eCW1 ([facility]) Test Strips - 02/09/2020 12:00:00 AM EST eCW1 ([facility]) Test Strips - 02/09/2020 12:00:00 AM EST eCW1 ([facility]) Test Strips - 02/09/2020 12:00:00 AM EST eCW1 ([facility]) Test Strips - 02/09/2020 12:00:00 AM EST eCW1 ([facility]) 3 ML insulin detemir 100 UNT/ML Pen Injector [Levemir] 02/03/2020 12:00:00 AM EST eCW1 ([facility]) 3 ML insulin detemir 100 UNT/ML Pen Injector [Levemir] 02/03/2020 12:00:00 AM EST eCW1 ([facility]) 3 ML insulin detemir 100 UNT/ML Pen Injector [Levemir] 02/03/2020 12:00:00 AM EST eCW1 ([facility]) 3 ML insulin detemir 100 UNT/ML Pen Injector [Levemir] 02/03/2020 12:00:00 AM EST eCW1 ([facility]) 3 ML insulin detemir 100 UNT/ML Pen Injector [Levemir] 02/03/2020 12:00:00 AM EST eCW1 ([facility]) 3 ML insulin detemir 100 UNT/ML Pen Injector [Levemir] 02/03/2020 12:00:00 AM EST eCW1 ([facility]) 3 ML insulin detemir 100 UNT/ML Pen Injector [Levemir] 02/03/2020 12:00:00 AM EST eCW1 ([facility]) 3 ML insulin detemir 100 UNT/ML Pen Injector [Levemir] 02/03/2020 12:00:00 AM EST eCW1 ([facility]) 3 ML insulin detemir 100 UNT/ML Pen Injector [Levemir] 02/03/2020 12:00:00 AM EST eCW1 ([facility]) 3 ML insulin detemir 100 UNT/ML Pen Injector [Levemir] 02/03/2020 12:00:00 AM EST eCW1 ([facility]) 3 ML insulin detemir 100 UNT/ML Pen Injector [Levemir] 02/03/2020 12:00:00 AM EST eCW1 ([facility]) 3 ML insulin detemir 100 UNT/ML Pen Injector [Levemir] 02/03/2020 12:00:00 AM EST eCW1 ([facility]) 3 ML insulin detemir 100 UNT/ML Pen Injector [Levemir] 02/03/2020 12:00:00 AM EST eCW1 ([facility]) 3 ML insulin detemir 100 UNT/ML Pen Injector [Levemir] 02/03/2020 12:00:00 AM EST eCW1 ([facility]) 3 ML insulin detemir 100 UNT/ML Pen Injector [Levemir] 02/03/2020 12:00:00 AM EST eCW1 ([facility]) 3 ML insulin detemir 100 UNT/ML Pen Injector [Levemir] 02/03/2020 12:00:00 AM EST eCW1 ([facility]) 3 ML insulin detemir 100 UNT/ML Pen Injector [Levemir] 02/03/2020 12:00:00 AM EST eCW1 ([facility]) 3 ML insulin detemir 100 UNT/ML Pen Injector [Levemir] 02/03/2020 12:00:00 AM EST eCW1 ([facility]) 3 ML insulin detemir 100 UNT/ML Pen Injector [Levemir] 02/03/2020 12:00:00 AM EST eCW1 ([facility]) 3 ML insulin detemir 100 UNT/ML Pen Injector [Levemir] 02/03/2020 12:00:00 AM EST eCW1 ([facility]) 3 ML insulin detemir 100 UNT/ML Pen Injector [Levemir] 02/03/2020 12:00:00 AM EST eCW1 ([facility]) 3 ML insulin detemir 100 UNT/ML Pen Injector [Levemir] 02/03/2020 12:00:00 AM EST eCW1 ([facility]) 3 ML insulin detemir 100 UNT/ML Pen Injector [Levemir] 02/03/2020 12:00:00 AM EST eCW1 ([facility]) 3 ML insulin detemir 100 UNT/ML Pen Injector [Levemir] 02/03/2020 12:00:00 AM EST eCW1 ([facility]) 3 ML insulin detemir 100 UNT/ML Pen Injector [Levemir] 02/03/2020 12:00:00 AM EST eCW1 ([facility]) 3 ML insulin detemir 100 UNT/ML Pen Injector [Levemir] 02/03/2020 12:00:00 AM EST eCW1 ([facility]) 3 ML insulin detemir 100 UNT/ML Pen Injector [Levemir] 02/03/2020 12:00:00 AM EST eCW1 ([facility]) 3 ML insulin detemir 100 UNT/ML Pen Injector [Levemir] 02/03/2020 12:00:00 AM EST eCW1 ([facility]) 3 ML insulin detemir 100 UNT/ML Pen Injector [Levemir] 02/03/2020 12:00:00 AM EST eCW1 ([facility]) 3 ML insulin detemir 100 UNT/ML Pen Injector [Levemir] 02/03/2020 12:00:00 AM EST eCW1 ([facility]) 3 ML insulin detemir 100 UNT/ML Pen Injector [Levemir] 02/03/2020 12:00:00 AM EST eCW1 ([facility]) 3 ML insulin detemir 100 UNT/ML Pen Injector [Levemir] 02/03/2020 12:00:00 AM EST eCW1 ([facility]) 3 ML insulin detemir 100 UNT/ML Pen Injector [Levemir] 02/03/2020 12:00:00 AM EST eCW1 ([facility]) 3 ML insulin detemir 100 UNT/ML Pen Injector [Levemir] 02/03/2020 12:00:00 AM EST eCW1 ([facility]) 3 ML insulin detemir 100 UNT/ML Pen Injector [Levemir] 02/03/2020 12:00:00 AM EST eCW1 ([facility]) 3 ML insulin detemir 100 UNT/ML Pen Injector [Levemir] 02/03/2020 12:00:00 AM EST eCW1 ([facility]) 3 ML insulin detemir 100 UNT/ML Pen Injector [Levemir] 02/03/2020 12:00:00 AM EST eCW1 ([facility]) 3 ML insulin detemir 100 UNT/ML Pen Injector [Levemir] 02/03/2020 12:00:00 AM EST eCW1 ([facility]) Amlodipine 5 MG Oral Tablet 02/03/2020 12:00:00 AM EST eCW1 ([facility]) 3 ML insulin detemir 100 UNT/ML Pen Injector [Levemir] 02/03/2020 12:00:00 AM EST eCW1 ([facility]) Amlodipine 5 MG Oral Tablet 02/03/2020 12:00:00 AM EST eCW1 ([facility]) 3 ML insulin detemir 100 UNT/ML Pen Injector [Levemir] 02/03/2020 12:00:00 AM EST eCW1 ([facility]) 3 ML insulin detemir 100 UNT/ML Pen Injector [Levemir] 02/03/2020 12:00:00 AM EST eCW1 ([facility]) Amlodipine 5 MG Oral Tablet 02/03/2020 12:00:00 AM EST eCW1 ([facility]) 3 ML insulin detemir 100 UNT/ML Pen Injector [Levemir] 02/03/2020 12:00:00 AM EST eCW1 ([facility]) Amlodipine 5 MG Oral Tablet 02/03/2020 12:00:00 AM EST eCW1 ([facility]) 3 ML insulin detemir 100 UNT/ML Pen Injector [Levemir] 02/03/2020 12:00:00 AM EST eCW1 ([facility]) 3 ML insulin detemir 100 UNT/ML Pen Injector [Levemir] 02/03/2020 12:00:00 AM EST eCW1 ([facility]) Amlodipine 5 MG Oral Tablet 02/03/2020 12:00:00 AM EST eCW1 ([facility]) 3 ML insulin detemir 100 UNT/ML Pen Injector [Levemir] 02/03/2020 12:00:00 AM EST eCW1 ([facility]) Amlodipine 5 MG Oral Tablet 02/03/2020 12:00:00 AM EST eCW1 ([facility]) Hydrochlorothiazide 12.5 MG Oral Capsule 02/02/2020 12:00:00 AM EST [facility] ferrous sulfate 325 MG Delayed Release Oral Tablet 01/26/2020 12 :00:00 AM EST eCW1 ([facility]) Pen Welches 01/26/2020 12:00:00 AM EST eCW1 ([facility]) ferrous sulfate 325 MG Delayed Release Oral Tablet 01/26/2020 12 :00:00 AM EST eCW1 ([facility]) Pen Welches 01/26/2020 12:00:00 AM EST eCW1 ([facility]) ferrous sulfate 325 MG Delayed Release Oral Tablet 01/26/2020 12 :00:00 AM EST eCW1 ([facility]) Pen Welches 07/10" 01/26/2020 12:00:00 AM EST eCW1 ([facility]) Lancets - 12/07/2019 12:00:00 AM EDT e CW1 ([facility]) Lancets - 12/07/2019 12:00:00 AM EDT e CW1 ([facility]) Lancets - 12/07/2019 12:00:00 AM EDT e CW1 ([facility]) Lancets - 12/07/2019 12:00:00 AM EDT e CW1 ([facility]) Lancets - 12/07/2019 12:00:00 AM EDT e CW1 ([facility]) Lancets - 12/07/2019 12:00:00 AM EDT e CW1 ([facility]) Glucometer 12/07/2019 12:00:00 AM EDT e CW1 ([facility]) Lancets - 12/07/2019 12:00:00 AM EDT e CW1 ([facility]) Lancets - 12/07/2019 12:00:00 AM EDT e CW1 ([facility]) Lancets - 12/07/2019 12:00:00 AM EDT e CW1 ([facility]) Lancets - 12/07/2019 12:00:00 AM EDT e CW1 ([facility]) Lancets - 12/07/2019 12:00:00 AM EDT e CW1 ([facility]) Glucometer 12/07/2019 12:00:00 AM EDT e CW1 ([facility]) Lancets - 12/07/2019 12:00:00 AM EDT e CW1 ([facility]) Glucometer 12/07/2019 12:00:00 AM EDT e CW1 ([facility]) Lancets - 12/07/2019 12:00:00 AM EDT e CW1 ([facility]) Glucometer 12/07/2019 12:00:00 AM EDT e CW1 ([facility]) Glucometer 12/07/2019 12:00:00 AM EDT e CW1 ([facility]) Lancets - 12/07/2019 12:00:00 AM EDT e CW1 ([facility]) Glucometer 12/07/2019 12:00:00 AM EDT e CW1 ([facility]) Lancets - 12/07/2019 12:00:00 AM EDT e CW1 ([facility]) Glucometer 12/07/2019 12:00:00 AM EDT e CW1 ([facility]) Lancets - 12/07/2019 12:00:00 AM EDT e CW1 ([facility]) Glucometer 12/07/2019 12:00:00 AM EDT e CW1 ([facility]) Lancets - 12/07/2019 12:00:00 AM EDT e CW1 ([facility]) Acetaminophen 325 MG / Hydrocodone Bitartrate 5 MG Ora l Tablet 12/03/2019 12:00:00 AM EDT eCW1 ([facility]) Acetaminophen 325 MG / Hydrocodone Bitartrate 5 MG Ora l Tablet 12/03/2019 12:00:00 AM EDT eCW1 ([facility]) Acetaminophen 325 MG / Hydrocodone Bitartrate 5 MG Ora l Tablet 12/03/2019 12:00:00 AM EDT eCW1 ([facility]) Acetaminophen 325 MG / Hydrocodone Bitartrate 5 MG Ora l Tablet 12/03/2019 12:00:00 AM EDT eCW1 ([facility]) Acetaminophen 325 MG / Hydrocodone Bitartrate 5 MG Ora l Tablet 12/03/2019 12:00:00 AM EDT eCW1 ([facility]) Acetaminophen 325 MG / Hydrocodone Bitartrate 5 MG Ora l Tablet 12/03/2019 12:00:00 AM EDT eCW1 ([facility]) Acetaminophen 325 MG / Hydrocodone Bitartrate 5 MG Ora l Tablet 12/03/2019 12:00:00 AM EDT eCW1 ([facility]) Acetaminophen 325 MG / Hydrocodone Bitartrate 5 MG Ora l Tablet 12/03/2019 12:00:00 AM EDT eCW1 ([facility]) Acetaminophen 325 MG / Hydrocodone Bitartrate 5 MG Ora l Tablet 12/03/2019 12:00:00 AM EDT eCW1 ([facility]) Acetaminophen 325 MG / Hydrocodone Bitartrate 5 MG Ora l Tablet 12/03/2019 12:00:00 AM EDT eCW1 ([facility]) gabapentin 100 MG Oral Capsule 11/19/2019 12:00:00 AM EDT [facility] torsemide 20 MG Oral Tablet 11/19/2019 12:00:00 AM EDT [facility] potassium chloride SA (K-DUR,KLOR-CON) 10 MEQ tablet 020 12:00:00 AM EDT [facility] dapagliflozin 5 MG Oral Tablet [Farxiga] 11/10/2019 12:00:00 AM EDT [facility] 24 HR Metformin hydrochloride 500 MG Extended Release Oral Tablet 11/02/2019 12:00:00 AM EDT [facility] carvedilol 3.125 MG Oral Tablet 09/23/2019 12:00:00 AM EDT [facility] Nystatin 410147 UNT/ML Oral Suspension 07/02/2019 12:00:00 AM EDT [facility] Losartan Potassium 100 MG Oral Tablet 12/10/2018 12:00:00 AM EDT [facility] dapagliflozin 10 MG Oral Tablet [Farxiga] 10/31/2018 12:00:00 AM ED T [facility] Furosemide 20 MG Oral Tablet 06/04/2018 12:00:00 AM EDT [facility] 3 ML Insulin Glargine 100 UNT/ML Pen Injector 07/12/2017 12:00:00 A M EDT [facility] [place]-3 Acid Ethyl Esters ([facility]) 1000 MG Oral Capsule 011 12:00:00 AM T [facility]
--- NOTE | 2020-12-24 22:45 | REPVR ---
PROCEDURE INFORMATION: Exam: XR Left Ankle Exam date and time: 12/24/2020 10:16 PM Age: 70 years old Clinical indication: Other: Pain and swelling after fall; Additional info: Pain and swelling after a fall TECHNIQUE: Imaging protocol: XR Left ankle. Views: 3 or more views. COMPARISON: CR FOOT COMPLETE 11/06/2019 2:30 PM FINDINGS: Bones/joints: Normal osseous alignment. No acute fracture. No asymmetric ankle mortise widening. Fifth metatarsal base is intact. No osteochondral lesion of the talar dome. No evidence of osseous tarsal coalition. No concerning bone lesion. Well-defined plantar calcaneal spur, at the plantar aponeurosis insertion. Bones appear diffusely demineralized. Joint spaces are well maintained. Soft tissues: Diffuse soft tissue swelling is present around the ankle. IMPRESSION: Diffuse ankle soft tissue swelling, with no evidence of acute fracture. Electronically signed by: Brad Braden On 12/24/2020 22:45:04 PM
--- NOTE | 2020-12-24 22:46 | REPVR ---
PROCEDURE INFORMATION: Exam: XR Left Knee Exam date and time: 12/24/2020 10:16 PM Age: 70 years old Clinical indication: Other: Pain and swelling after fall; Additional info: Pain and swelling after a fall TECHNIQUE: Imaging protocol: XR Left knee. Views: 4 or more views. COMPARISON: CR Knee, complete 07/05/2018 11:00 PM FINDINGS: Bones/joints: No radiographic evidence of joint effusion. Bones are aligned normally with decreased mineralization. No fracture, evidence of stress fracture or osteochondral lesion. Joint spaces are well maintained. Soft tissues: No effacement of subcutaneous soft tissue planes. Vasculature: Vascular calcifications are noted. IMPRESSION: Normal knee radiographs. Electronically signed by: Brad Braden On 12/24/2020 22:45:45 PM
[2020-12-24] MEDS ORDERED: NS 500 ML IV ONE (23:05)
--- NOTE | 2020-12-24 23:18 | REPVR ---
PROCEDURE INFORMATION: Exam: CT Head Without Contrast Exam date and time: 12/24/2020 11:06 PM Age: 70 years old Clinical indication: Syncope and collapse TECHNIQUE: Imaging protocol: Computed tomography of the head without contrast. Radiation optimization: All CT scans at this facility use at least one of these dose optimization techniques: automated exposure control; mA and/or kV adjustment per patient size (includes targeted exams where dose is matched to clinical indication); or iterative reconstruction. COMPARISON: CT Head without contrast 09/17/2020 9:48 AM FINDINGS: Brain: Ventricles, basilar cisterns, and sulci are normal in size for age. No intracranial mass, mass effect or midline shift. No acute intracranial hemorrhage. No focal effacement of cortical sulci to indicate acute cortical infarct. Paranasal sinuses: Imaged paranasal sinuses are clear. Mastoid air cells: Mastoid air cells are normally aerated. Orbital cavity: Imaged orbits are unremarkable. Bones/joints: No calvarial fracture or destructive process. Soft tissues: Mild asymmetric right parietal extracranial scalp swelling. IMPRESSION: 1. Mild right parietal extracranial scalp swelling. 2. No underlying acute or concerning focal intracranial abnormality. Electronically signed by: Brad Braden On 12/24/2020 23:18:03 PM
--- OUTSIDE RECORDS SUMMARY | 2020-12-24 23:37 | CCD ---
Author Author [facility] Organization [facility] Address Unknown Phone Unavailable Support Name Relationship Address Phone RE Next Of Kin Unknown Unavailable Junior Gallo Next Of Kin Unknown Unavailable MARIO ALBERTO MILLER Next Of Kin [address] [place] [address] LEDGER, (CAPPY) CAPITOLA Next Of Kin [address] [place] [address] LEDGER, CAPPY Next Of Kin [address] [address] DISABILITY Next Of Kin UN UN, UN UN MARIANO FLEMING Next Of Kin [address] [facility] [address] [place] [address] NELLIE FLEMING Next Of Kin [address] [place] [address] NELLIE ANDERS Next Of Kin [address] [place] [address] Kimberly Villanueva Next Of Kin [address] [place] [address] 315 Kristopher Barrow MD Next Of Kin [address] [place] [address] JUNIOR BELTRE Next Of Kin [address] [place] [id number] [place] [address] DALE WALTERS Next Of Kin [address] [facility] [address] [place] [address] [employer] Next Of Kin [address] [place] [address] [employer] Next [place] [address] Gilson SMITH JR Next Of Kin [address] [place] [address] [employer] [place] [address] [facility] NEWS TOO Next [place] [address] DEEP FLEMING Next Of Kin [address] [place] [address] UE Next Of Kin Unknown Unavailable SATISH BELTRE [place] [address] Unavailable MARTHA FLEMING Next Of Kin [address] [place] [address] ANGELA KINGSLEY Next Of Kin Unknown Mario Alberto Fleming Next Of Kin Unknown DISABLED Next Of Kin Unknown Unavailable D[place] [address] JUNIOR MILLER Next Of Kin [address] [place] [address] MARIANA SMITH Next Of Kin [address] [facility] [address] [place] [address] MARIO ALBERTO MILLER ECON [address] [place] [address] Unavailable LedAlvaro seymour (Cappy) ECON Unknown Unavai lable Mario Alberto Fleming ECON Unknown Care Team Providers Care Kennel Manager Name Role Phone Catalino Dunn Cara GUARD SUPERVISOR Unavailable Unavailable Kocan, J Cara GUARD SUPERVISOR Unavailable Unavailable Kocan, J Cara GUARD SUPERVISOR Unavailable Unavailable Kocan, J Cara GUARD SUPERVISOR Unavailable Unavailable Kocan, J Cara GUARD SUPERVISOR Unavailable Unavailable Kocan, J Cara GUARD SUPERVISOR Unavailable Unavailable Kocan, J Cara GUARD SUPERVISOR Unavailable Unavailable Kocan, J Cara GUARD SUPERVISOR Unavailable Unavailable Kocan, J Cara GUARD SUPERVISOR Unavailable Unavailable Kocan, J Cara GUARD SUPERVISOR Unavailable Unavailable Kocan, J Cara GUARD SUPERVISOR Unavailable Unavailable Kocan, J Cara GUARD SUPERVISOR Unavailable Unavailable Kocan, J Cara GUARD SUPERVISOR Unavailable Unavailable SYSTEM IN, NOT IN PROVIDER [...] AYDIN WELLS Unavailable Unavailable Fish, Johnna Thompson [facility], PA-C Unavailable Unavailabl e Fish, Johnna Thompson [facility], PA-C Unavailable Unavailabl e Fish, Johnna Thompson [facility], PA-C Unavailable Unavailabl e Fish, Johnna Thompson [facility], PA-C Unavailable Unavailabl e Fish, Johnna Thompson [facility], PA-C Unavailable Unavailabl e Fish, Johnna Thompson [facility], PA-C Unavailable Unavailabl e Fish, Johnna Donna [facility], PA-C Unavailable Unavailabl e Fish, Johnna Thompson [facility], PA-C Unavailable Unavailabl e Fish, Johnna Thompson [facility], PA-C Unavailable Unavailabl e Fish, Johnna Thompson [facility], PA-C Unavailable Unavailabl e Fish, Johnna Thompson [facility], PA-C Unavailable Unavailabl e Fish, Johnna Thompson [facility], PA-C Unavailable Unavailabl e Fish, Johnna Thompson [facility], PA-C Unavailable Unavailabl e Fish, [facility], [facility]C Unavailable Unavailabl e Fish, [facility], PA-C Unavailable Unavailabl e Fish, [facility], PA-C Unavailable Unavailabl e Fish, [facility], PA-C Unavailable Unavailabl e Fish, [facility], PA-C Unavailable Unavailabl e Fish, [facility], PA-C Unavailable Unavailabl e Fish, [facility], PA-C Unavailable Unavailabl e Fish, [facility], PA-C Unavailable Unavailabl e Fish, [facility], PA-C Unavailable Unavailabl e Fish, [facility], PA-C Unavailable Unavailabl e Fish, [facility], PA-C Unavailable Unavailabl e Fish, [facility], PA-C Unavailable Unavailabl e Fish, [facility], PA-C Unavailable Unavailabl e Fish, [facility], PA-C Unavailable Unavailabl e Fish, [facility], PA-C Unavailable Unavailabl e Fish, [facility], PA-C Unavailable Unavailabl e Fish, [facility], PA-C Unavailable Unavailabl e Fish, [facility], PA-C Unavailable Unavailabl e Fish, [facility], PA-C Unavailable Unavailabl e Fish, [facility], PA-C Unavailable Unavailabl e Fish, [facility], PA-C Unavailable Unavailabl e Fish, [facility], PA-C Unavailable Unavailabl e Fish, [facility], PA-C Unavailable Unavailabl e NILAM KEARNS MD Unavailable Unavailable NILAM KEARNS [...] Unavailable NILAM KEARNS MD Unavailable Unavailable URMILA, NILAM WELLS Unavailable Unavailable [...] URMILA, NILAM WELLS Unavailable Unavailable URMILA, NILAM WELSL Unavailable Unavailable URMILA, NILAM WELLS Unavailable Unavailable [...] is protected by Article 27-F of the [facility] Public Health law. If you continue you may have access to information: Regarding HIV / AIDS; Provided by facilities licensed or operated by the [facility] Office of Mental Health; or Provided by the [facility] Office for People With Developmental Disabilities. If such information is present, then the following [facility] mandated warning applies: This information has [...] law may result in a fine or halfway sentence or both. A general authorization for the release of medical or other information is NOT sufficient authorization for further disc losure. Family History Family Member Name Family Member Gender Family Member Status Date o f Status Description Data Source(s) Unknown Unknown Problem MEDENT ([facility], ) Encounters Encounter Providers Location Date Indications Data Source(s ) Unknown [address] [facility] Y [address] 12/19/2020 12:00:00 AM EDT eCW1 ([facility]) Unknown [address] [facility] Y [address] 12/13/2020 12:00:00 AM EDT eCW1 ([facility]) Outpatient [address] [facility] [place] [address] 12/12/2020 12:00:00 AM EDT eCW1 ([facility]) Unknown [address] [facility] Y [address] 12/12/2020 12:00:00 AM EDT eCW1 ([facility]) Unknown [address] [facility] Y [address] 12/01/2020 12:00:00 AM EDT [facility] Outpatient Attender: Zakia Conti MD Main [facility] 10/19/2020 02:15:00 PM EDT MEDENT ([facility] EDEN hurtado) Outpatient Attender: Cara ANGUIANO SJP.CARLOS ENRIQUE-SJP.CARLOS ENRIQUE 2020 12:00:00 AM EDT - 10/12/2020 12:16:58 PM EDT [facility] Unknown [address] [facility] [place] [address] 10/11/2020 12:00:00 AM EDT [facility]) Outpatient [address] [facility] Y [address] 10/11/2020 12:00:00 AM EDT [facility]1 [facility]) Unknown [address] [facility] Y [address] 10/06/2020 12:00:00 AM EDT [facility]CW1 [facility]) Outpatient Attender: Selma Wilson/Osman/Win/Briana corcoran 10/04/2020 11:00:00 AM EDT MEDENT ([facility] EDEN Daniels) Unknown [address] [facility] [place] [address] 10/04/2020 12:00:00 AM EDT eCW1 [facility]) Outpatient [address] [facility] Y [address] 10/03/2020 12:00:00 AM EDT eCW1 ([facility]) Unknown [address] [facility] Y [address] 10/03/2020 12:00:00 AM EDT [facility]CW1 [facility]) Unknown [address] [facility] Y [address] 09/30/2020 12:00:00 AM EDT [facility]CW1 [facility]) Unknown [address] [facility] Y [address] 09/29/2020 12:00:00 AM EDT eCW1 ([facility]) OFFICE OUTPATIENT VISIT 15 MINUTES Attender: Donna PETERSON PA-C Physical Therapy 09/21/2020 10:30:00 AM EDT MEDENT ([facility]) Outpatient Attender: ANGY Pierce/Osman/Win/Lio sue 09/20/2020 03:40:00 PM EDT MEDENT ([facility]) Unknown [address] [facility] [address] 09/15/2020 12:00:00 AM EDT eCW1 ([facility]) Unknown [address] [facility] [address] 09/12/2020 12:00:00 AM EDT eCW1 ([facility]) Outpatient Attender: NILAM KEARNS MD SJP.CARLOS ENRIQUE-SJP.CARLOS ENRIQUE 12:00:00 AM EDT - 09/07/2020 12:16:15 PM EDT [facility] Unknown [address] [facility] [address] 09/05/2020 12:00:00 AM EDT eCW1 ([facility]) Unknown [address] [facility] [address] 09/01/2020 12:00:00 AM EDT eCW1 ([facility]) Unknown [address] [facility] [address] 09/01/2020 12:00:00 AM EDT eCW1 ([facility]) Unknown [address] [facility] [address] 08/31/2020 12:00:00 AM EDT eCW1 ([facility]) Office Visit, Est Pt., Level 4 PC [address] [place] [address] 08/22/2020 12:00:00 AM EDT eCW1 ([facility]) Outpatient Attender: KASSY ZEPEDA Physical Therapy 08/18/2020 01:15:00 PM EDT MEDENT ([facility]) Outpatient Attender: Zakia Conti MD Main office - [place] 08/09/2020 09:30:00 AM EDT MEDENT ([facility]) Office Visit, Est Pt., Level 4 PC [address] [place] [address] 08/02/2020 12:00:00 AM EDT eCW1 ([facility]) Unknown [address] [facility] [address] 08/02/2020 12:00:00 AM EDT eCW1 ([facility]) Outpatient Attender: AYDIN Wilson/Osman/Win/Frannie zeng 08/01/2020 03:30:00 PM EDT MEDENT ([facility]) Unknown [address] [facility] [address] 07/29/2020 12:00:00 AM EDT eCW1 ([facility]) Unknown [address] [facility] [address] 07/26/2020 12:00:00 AM EDT eCW1 ([facility]) Outpatient JAYDACARLOS ENRIQUE 07/22/2020 12:00:00 AM EDT [facility] Office Visit, Est Pt., Level 4 PC [address] [place] [address] 07/20/2020 12:00:00 AM EDT eCW1 ([facility]) Unknown [address] [facility], [facility] [address] 07/15/2020 12:00:00 AM EDT eCW1 ([facility]) OFFICE OUTPATIENT VISIT 15 MINUTES Attender: KASSY ZEPEDA Physical Therapy 07/13/2020 10:30:00 AM EDT MEDENT ([facility]) Outpatient Attender: NILAM MONTELONGOCARLOS ENRIQUE 12:00:00 AM EDT - 07/06/2020 11:32:02 AM EDT [facility] Unknown [address] [facility] [address] 07/06/2020 12:00:00 AM EDT eCW1 ([facility]) Office Visit, Est Pt., Level 4 PC [address] [place] [address] 07/05/2020 12:00:00 AM EDT eCW1 ([facility]) Unknown [address] [facility], [place] [address] 07/05/2020 12:00:00 AM EDT eCW1 ([facility]) Unknown [address] [facility] Y [address] 07/05/2020 12:00:00 AM EDT eCW1 ([facility]) Unknown [address] [facility] Y [address] 06/22/2020 12:00:00 AM EDT eCW1 ([facility]) Unknown [address] [facility], [facility] [address] 06/21/2020 12:00:00 AM EDT eCW1 ([facility]) Unknown [address] [facility] [place] [address] 06/17/2020 12:00:00 AM EDT eCW1 ([facility]) Office Visit, Est Pt., Level 2 FC [address] [place] [address] 06/13/2020 12:00:00 AM EDT eCW1 ([facility]) Unknown [address] [facility] Y [address] 06/09/2020 12:00:00 AM EDT eCW1 ([facility]) Outpatient Attender: NILAM PULIDO.CARLOS ENRIQUE-SJANNIE 10:05:07 AM EDT - 06/08/2020 11:16:32 AM EDT [facility] Unknown [address] [facility] Y [address] 06/08/2020 12:00:00 AM EDT eCW1 ([facility]) Unknown [address] [facility], [place] [address] 06/06/2020 12:00:00 AM EDT [facility] Outpatient Attender: KASSY ZEPEDA Physical Therapy 05/26/2020 02:15:00 PM EDT MEDENT ([facility]) Unknown [address] [facility] [place] [address] 05/26/2020 12:00:00 AM EDT eCW1 ([facility]) Unknown [address] [facility] [place] [address] 05/23/2020 12:00:00 AM EDT [facility]CW1 [facility] Unknown [address] [facility] [place] [address] 05/18/2020 12:00:00 AM EDT [facility] Outpatient [address] [facility] [place] [address] 05/12/2020 12:00:00 AM EDT eCW1 ([facility]) Unknown [address] [facility], [place] Y [address] 05/06/2020 12:00:00 AM EST [facility]CW1 [facility] Outpatient [address] [facility] [place] [address] 05/03/2020 12:00:00 AM EST eCW1 ([facility]) Unknown [address] [facility], [place] [address] 05/03/2020 12:00:00 AM EST eCW1 ([facility]) Unknown [address] [facility] [place] [address] 05/03/2020 12:00:00 AM EST eCW1 ([facility]) Unknown [address] [facility] Y [address] 04/21/2020 12:00:00 AM EST [facility] Outpatient Attender: NILAM KEARNS MD SJP.CARLOS ENRIQUE-SJP.CARLOS ENRIQUE 12:00:00 AM EST - 04/15/2020 03:42:03 PM EST [facility] Unknown [address] [facility] [place] [address] 04/11/2020 12:00:00 AM EST [facility]CW1 [facility] Outpatient [address] [facility], [place] [address] 04/05/2020 12:00:00 AM EST [facility] Outpatient [address] [facility] [address] 04/04/2020 12:00:00 AM EST [facility]CW1 [facility]) Outpatient Attender: ANGY Pierce/Osman/Win/Lio sue 03/24/2020 08:10:00 AM EST MEDENT ([facility]) Unknown [address] [facility], [place] [address] 03/21/2020 12:00:00 AM EST [facility]CW1 [facility] Unknown [address] [facility], [place] [address] 03/15/2020 12:00:00 AM EST [facility]CW1 [facility]) Unknown [address] [facility], [place] [address] 03/08/2020 12:00:00 AM EST [facility]CW1 [facility]) Outpatient [address] [facility] [address] 03/08/2020 12:00:00 AM EST eCW1 [facility] Unknown [address] [facility] [place] [address] 03/08/2020 12:00:00 AM EST eCW1 ([facility]) Unknown [address] [facility] [address] 03/08/2020 12:00:00 AM EST eCW1 [facility]) Unknown [address] [facility], [place] [address] 02/25/2020 12:00:00 AM EST eCW1 ([facility]) Unknown [address] [facility] [place] [address] 02/25/2020 12:00:00 AM EST eCW1 ([facility]) Outpatient [address] [facility] [place] [address] 02/23/2020 12:00:00 AM EST eCW1 ([facility]) Unknown [address] [facility], [place] [address] 02/23/2020 12:00:00 AM EST eCW1 ([facility]) Unknown [address] [facility] Y [address] 02/23/2020 12:00:00 AM EST eCW1 ([facility]) Unknown [address] [facility] N Y [address] 02/22/2020 12:00:00 AM EST eCW1 ([facility]) Unknown [address] [facility] [address] 02/22/2020 12:00:00 AM EST eCW1 ([facility]) Unknown [address] [facility] [place] Y [address] 02/15/2020 12:00:00 AM EST eCW1 ([facility]) Unknown [address] [facility] [place] Y [address] 02/15/2020 12:00:00 AM EST eCW1 ([facility]) Unknown [address] [facility] [place] [address] 02/12/2020 12:00:00 AM EST eCW1 ([facility]) Unknown [address] [facility] Y [address] 02/10/2020 12:00:00 AM EST [facility] Outpatient Attender: AYDIN Wilson/Osman/Win/Frannie zeng 02/09/2020 08:00:00 AM EST [facility] Office Visit, Est Pt., Level 4 PC [address] [place] [address] 02/09/2020 12:00:00 AM EST eCW1 ([facility]) Unknown [address] [facility] [address] 02/04/2020 12:00:00 AM EST [facility]CW1 [facility]) Unknown [address] [facility] [address] 02/03/2020 12:00:00 AM EST eCW1 ([facility]) Unknown [address] [facility] Y [address] 01/29/2020 12:00:00 AM EST eCW1 ([facility]) Unknown [address] [facility] [address] 01/29/2020 12:00:00 AM EST eCW1 ([facility]) Outpatient [address] [facility] [address] 01/26/2020 12:00:00 AM EST [facility]CW1 [facility]) Unknown [address] [facility] [address] 01/20/2020 12:00:00 AM EST eCW1 ([facility]) Outpatient Attender: ANGY Pierce/Osman/Win/Lio sue 01/14/2020 12:40:00 PM EST MEDENT ([facility]) Unknown [address] [facility] Y [address] 01/08/2020 12:00:00 AM EST eCW1 ([facility]) Unknown [address] [facility] Y [address] 01/06/2020 12:00:00 AM EST eCW1 ([facility]) Unknown [address] [facility] [address] 12/31/2019 12:00:00 AM EST eCW1 ([facility]) Outpatient Attender: NILAM PULIDO.CARLOS ENRIQUE-SJP.CARLOS ENRIQUE 0 12:00:00 AM EST - 12/30/2019 09:40:17 AM EST [facility] Unknown [address] [facility] [place] [address] 12/30/2019 12:00:00 AM EST eCW1 ([facility] Unknown [address] [facility] [place] [address] 12/25/2019 12:00:00 AM EDT eCW1 ([facility]) Unknown [address] [facility] [place] [address] 12/11/2019 12:00:00 AM EDT eCW1 ([facility]) Unknown [address] [facility] [place] [address] 12/08/2019 12:00:00 AM EDT eCW1 ([facility]) Unknown [address] [facility], [place] [address] 12/07/2019 12:00:00 AM EDT eCW1 ([facility]) Office Visit Attender: KASSY ZEPEDA Physical Therapy 12/04/2019 04:00:00 PM EDT MEDENT ([facility]) Unknown [address] [facility] [place] [address] 12/03/2019 12:00:00 AM EDT eCW1 ([facility]) Unknown [address] [facility] [place] [address] 12/03/2019 12:00:00 AM EDT eCW1 ([facility]) Unknown [address] [facility] [place] Y [address] 12/02/2019 12:00:00 AM EDT eCW1 ([facility]) Outpatient [address] [facility] Y [address] 12/01/2019 12:00:00 AM EDT eCW1 [facility]) Outpatient Referrer: PROVIDER SYSTEM IN 11/13/2019 1 2:27:00 PM EDT 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 [facility] mild to mod cord compression of C5 and C 6 Outpatient Attender: KASSY mallory 11/06/2019 02:45:00 PM EDT MEDENT ([facility], [facility]) <td ID="encounterTypeDescriptionID0">1 Y ear Follow-Up</td><td>Silverio Mustafa DO</td><td>Aydin Weaver MD [facility]</td><td>10/05/2020</td><td>04/07/2019 11:50AM</td><td>11:08AM</td><td><content ID="encounterDiagnosisID0-0">History of Nicotine Dependence</content>, <content ID="encounterDiagnosisID0-1">Essential Hypertension</content>, <content ID="encounterDiagnosisID0-2">Retinopathy Hypertensive</content>, <content ID="encounterDiagnosisID0-3">Taking Medication For Diabetes Long-term Use of Insulin</content>, <content ID="encounterDiagnosisID0-4">Dry Eye Syndrome Both Eyes</content>, <content ID="encounterDiagnosisID0-5">Borderline Glaucoma Ocular Hypertension Both Eyes</content>, <content ID="encounterDiagnosisID0-6">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</content>, <content ID="encounterDiagnosisID0-7">Pseudophakia</content>, <content ID="encounterDiagnosisID0-8">Posterior Capsule Opacification Eccentric Capsule Both Eyes</content></td>Outpatient Attender: SILVERIO Swartz MD [facility] 04/07/2019 11:50:00 AM EST - 10/05/2020 11:08:00 AM ED T Posterior Capsule Opacification Eccentric Capsule Both EyesPseudophakiaHistory of Nicotine DependenceEssential Hypertension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Taking Medication For Diabetes Long-term Use of Insulin Retinopathy HypertensiveBorderline Glaucoma Ocular Hypertension Both EyesDry Eye Syndrome Both Eyes SHANE (Aydin Toribio MD [facility]) Posterior Capsule Opacification Eccentri c Capsule Both [...] EDT active Levothyroxine Sodium 75 MCG eCW1 ([facility]) Levothyroxine Sodium 0.075 MG Oral Tablet Levothyroxin e Sodium 75 MCG Levothyroxine Sodium 75 MCG 12/13/2020 12:00:00 AM EDT active Levothyroxine Sodium 75 MCG eCW1 ([facility]) Levothyroxine Sodium 0.075 MG Oral Tablet Levothyroxin e Sodium 75 MCG Levothyroxine Sodium 75 MCG 12/13/2020 12:00:00 AM EDT active Levothyroxine Sodium 75 MCG eCW1 ([facility]) duloxetine 60 MG Delayed Release Oral Capsule DULoxeti ne HCl 60 MG DULoxetine HCl 60 MG 12/12/2020 12:00:00 AM EDT 1.0 {capsule} a ctive DULoxetine HCl 60 MG eCW1 ([facility]) duloxetine 60 MG Delayed Release Oral Capsule DULoxeti ne HCl 60 MG DULoxetine HCl 60 MG 12/12/2020 12:00:00 AM EDT 1.0 {capsule} a ctive DULoxetine HCl 60 MG eCW1 ([facility]) duloxetine 60 MG Delayed Release Oral Capsule DULoxeti ne HCl 60 MG DULoxetine HCl 60 MG 12/12/2020 12:00:00 AM EDT 1.0 {capsule} a ctive DULoxetine HCl 60 MG eCW1 ([facility]) duloxetine 60 MG Delayed Release Oral Capsule DULoxeti ne HCl 60 MG DULoxetine HCl 60 MG 12/12/2020 12:00:00 AM EDT 1.0 {capsule} a ctive DULoxetine HCl 60 MG eCW1 ([facility]) Acetaminophen 325 MG / Hydrocodone Brielle trate 7.5 MG Oral Tablet HYDROcodone- Acetaminophen 7.5-325 MG HYDROcodone-Acetaminophen 7.5-325 MG 12/01/2020 12:00:00 AM EDT 1.0 {tablet_as_needed} active HYDROcodone- Acetaminophen 7.5-325 MG eCW1 ([facility]) Acetaminophen 325 MG / Hydrocodone Brielle trate 7.5 MG Oral Tablet HYDROcodone- Acetaminophen 7.5-325 MG HYDROcodone-Acetaminophen 7.5-325 MG 12/01/2020 12:00:00 AM EDT 1.0 {tablet_as_needed} active HYDROcodone- Acetaminophen 7.5-325 MG eCW1 ([facility]) Acetaminophen 325 MG / Hydrocodone Brielle trate 7.5 MG Oral Tablet HYDROcodone- Acetaminophen 7.5-325 MG HYDROcodone-Acetaminophen 7.5-325 MG 12/01/2020 12:00:00 AM EDT 1.0 {tablet_as_needed} active HYDROcodone- Acetaminophen 7.5-325 MG eCW1 ([facility]) Acetaminophen 325 MG / Hydrocodone Brielle trate 7.5 MG Oral Tablet HYDROcodone- Acetaminophen 7.5-325 MG HYDROcodone-Acetaminophen 7.5-325 MG 12/01/2020 12:00:00 AM EDT 1.0 {tablet_as_needed} active HYDROcodone- Acetaminophen 7.5-325 MG eCW1 ([facility]) Acetaminophen 325 MG / Hydrocodone Brielle trate 7.5 MG Oral Tablet HYDROcodone- Acetaminophen 7.5-325 MG HYDROcodone-Acetaminophen 7.5-325 MG 12/01/2020 12:00:00 AM EDT 1.0 {tablet_as_needed} active HYDROcodone- Acetaminophen 7.5-325 MG eCW1 ([facility]) Primidone 50 MG Oral Tablet Primidone 10/19/2020 12:00:00 AM EDT active MEDENT ([facility], ) Triamcinolone Acetonide 1 MG/ML Topical Cream Triamcin olone Acetonide 0.1 % Triamcinolone Acetonide 0.1 % 10/11/2020 12:00:00 AM EDT active Triamcinolone Acetonide 0.1 % eCW1 ([facility]) Triamcinolone Acetonide 1 MG/ML Topical Cream Triamcin olone Acetonide 0.1 % Triamcinolone Acetonide 0.1 % 10/11/2020 12:00:00 AM EDT active Triamcinolone Acetonide 0.1 % eCW1 ([facility]) Triamcinolone Acetonide 1 MG/ML Topical Cream Triamcin olone Acetonide 0.1 % Triamcinolone Acetonide 0.1 % 10/11/2020 12:00:00 AM EDT active Triamcinolone Acetonide 0.1 % eCW1 ([facility]) Triamcinolone Acetonide 1 MG/ML Topical Cream Triamcin olone Acetonide 0.1 % Triamcinolone Acetonide 0.1 % 10/11/2020 12:00:00 AM EDT active Triamcinolone Acetonide 0.1 % eCW1 ([facility]) Triamcinolone Acetonide 1 MG/ML Topical Cream Triamcin olone Acetonide 0.1 % Triamcinolone Acetonide 0.1 % 10/11/2020 12:00:00 AM EDT active Triamcinolone Acetonide 0.1 % eCW1 ([facility]) Triamcinolone Acetonide 1 MG/ML Topical Cream Triamcin olone Acetonide 0.1 % Triamcinolone Acetonide 0.1 % 10/11/2020 12:00:00 AM EDT active Triamcinolone Acetonide 0.1 % eCW1 ([facility]) Triamcinolone Acetonide 1 MG/ML Topical Cream Triamcin olone Acetonide 0.1 % Triamcinolone Acetonide 0.1 % 10/11/2020 12:00:00 AM EDT active Triamcinolone Acetonide 0.1 % eCW1 ([facility]) Levothyroxine Sodium 0.05 MG Oral Tablet Levothyroxine Sodium 50 MCG Levothyroxine Sodium 50 MCG 10/04/2020 12:00:00 AM EDT active Levothyroxine Sodium 50 MCG eCW1 ([facility]) Levothyroxine Sodium 0.05 MG Oral Tablet Levothyroxine Sodium 50 MCG Levothyroxine Sodium 50 MCG 10/04/2020 12:00:00 AM EDT active Levothyroxine Sodium 50 MCG eCW1 ([facility]) Levothyroxine Sodium 0.05 MG Oral Tablet Levothyroxine Sodium 50 MCG Levothyroxine Sodium 50 MCG 10/04/2020 12:00:00 AM EDT active Levothyroxine Sodium 50 MCG eCW1 ([facility]) Levothyroxine Sodium 0.05 MG Oral Tablet Levothyroxine Sodium 50 MCG Levothyroxine Sodium 50 MCG 10/04/2020 12:00:00 AM EDT active Levothyroxine Sodium 50 MCG eCW1 ([facility]) Levothyroxine Sodium 0.05 MG Oral Tablet Levothyroxine Sodium 50 MCG Levothyroxine Sodium 50 MCG 10/04/2020 12:00:00 AM EDT active Levothyroxine Sodium 50 MCG eCW1 ([facility]) Levothyroxine Sodium 0.05 MG Oral Tablet Levothyroxine Sodium 50 MCG Levothyroxine Sodium 50 MCG 10/04/2020 12:00:00 AM EDT active Levothyroxine Sodium 50 MCG eCW1 ([facility]) Acetaminophen 325 MG / Hydrocodone Brielle trate 7.5 MG Oral Tablet HYDROcodone- Acetaminophen 7.5-325 MG HYDROcodone-Acetaminophen 7.5-325 MG 10/03/2020 12:00:00 AM EDT 1.0 {tablet_as_needed} active HYDROcodone- Acetaminophen 7.5-325 MG eCW1 ([facility]) Acetaminophen 325 MG / Hydrocodone Brielle trate 7.5 MG Oral Tablet HYDROcodone- Acetaminophen 7.5-325 MG HYDROcodone-Acetaminophen 7.5-325 MG 10/03/2020 12:00:00 AM EDT 1.0 {tablet_as_needed} active HYDROcodone- Acetaminophen 7.5-325 MG eCW1 ([facility]) Acetaminophen 325 MG / Hydrocodone Brielle trate 7.5 MG Oral Tablet HYDROcodone- Acetaminophen 7.5-325 MG HYDROcodone-Acetaminophen 7.5-325 MG 10/03/2020 12:00:00 AM EDT 1.0 {tablet_as_needed} active HYDROcodone- Acetaminophen 7.5-325 MG eCW1 ([facility]) Acetaminophen 325 MG / Hydrocodone Brielle trate 7.5 MG Oral Tablet HYDROcodone- Acetaminophen 7.5-325 MG HYDROcodone-Acetaminophen 7.5-325 MG 10/03/2020 12:00:00 AM EDT 1.0 {tablet_as_needed} active HYDROcodone- Acetaminophen 7.5-325 MG eCW1 ([facility]) Acetaminophen 325 MG / Hydrocodone Brielle trate 7.5 MG Oral Tablet HYDROcodone- Acetaminophen 7.5-325 MG HYDROcodone-Acetaminophen 7.5-325 MG 10/03/2020 12:00:00 AM EDT 1.0 {tablet_as_needed} active HYDROcodone- Acetaminophen 7.5-325 MG eCW1 ([facility]) Acetaminophen 325 MG / Hydrocodone Brielle trate 7.5 MG Oral Tablet HYDROcodone- Acetaminophen 7.5-325 MG HYDROcodone-Acetaminophen 7.5-325 MG 10/03/2020 12:00:00 AM EDT 1.0 {tablet_as_needed} active HYDROcodone- Acetaminophen 7.5-325 MG eCW1 ([facility]) Acetaminophen 325 MG / Hydrocodone Brielle trate 7.5 MG Oral Tablet HYDROcodone- Acetaminophen 7.5-325 MG HYDROcodone-Acetaminophen 7.5-325 MG 10/03/2020 12:00:00 AM EDT 1.0 {tablet_as_needed} active HYDROcodone- Acetaminophen 7.5-325 MG eCW1 ([facility]) Acetaminophen 325 MG / Hydrocodone Brielle trate 7.5 MG Oral Tablet HYDROcodone- Acetaminophen 7.5-325 MG HYDROcodone-Acetaminophen 7.5-325 MG 10/03/2020 12:00:00 AM EDT 1.0 {tablet_as_needed} active HYDROcodone- Acetaminophen 7.5-325 MG eCW1 ([facility]) Acetaminophen 325 MG / Hydrocodone Brielle trate 7.5 MG Oral Tablet HYDROcodone- Acetaminophen 7.5-325 MG HYDROcodone-Acetaminophen 7.5-325 MG 10/03/2020 12:00:00 AM EDT 1.0 {tablet_as_needed} active HYDROcodone- Acetaminophen 7.5-325 MG eCW1 ([facility]) Acetaminophen 325 MG / Hydrocodone Brielle trate 7.5 MG Oral Tablet HYDROcodone- Acetaminophen 7.5-325 MG HYDROcodone-Acetaminophen 7.5-325 MG 10/03/2020 12:00:00 AM EDT 1.0 {tablet_as_needed} active HYDROcodone- Acetaminophen 7.5-325 MG eCW1 ([facility]) Acetaminophen 325 MG / Hydrocodone Brielle trate 7.5 MG Oral Tablet HYDROcodone- Acetaminophen 7.5-325 MG HYDROcodone-Acetaminophen 7.5-325 MG 10/03/2020 12:00:00 AM EDT 1.0 {tablet_as_needed} active HYDROcodone- Acetaminophen 7.5-325 MG eCW1 ([facility]) Acetaminophen 325 MG / Hydrocodone Brielle trate 7.5 MG Oral Tablet HYDROcodone- Acetaminophen 7.5-325 MG HYDROcodone-Acetaminophen 7.5-325 MG 10/03/2020 12:00:00 AM EDT 1.0 {tablet_as_needed} active HYDROcodone- Acetaminophen 7.5-325 MG eCW1 ([facility]) Acetaminophen 325 MG / Hydrocodone Brielle trate 7.5 MG Oral Tablet HYDROcodone- Acetaminophen 7.5-325 MG HYDROcodone-Acetaminophen 7.5-325 MG 10/03/2020 12:00:00 AM EDT 1.0 {tablet_as_needed} active HYDROcodone- Acetaminophen 7.5-325 MG eCW1 ([facility]) Acetaminophen 325 MG / Hydrocodone Brielle trate 7.5 MG Oral Tablet HYDROcodone- Acetaminophen 7.5-325 MG HYDROcodone-Acetaminophen 7.5-325 MG 10/03/2020 12:00:00 AM EDT 1.0 {tablet_as_needed} active HYDROcodone- Acetaminophen 7.5-325 MG eCW1 ([facility]) Acetaminophen 325 MG / Hydrocodone Brielle trate 7.5 MG Oral Tablet HYDROcodone- Acetaminophen 7.5-325 MG HYDROcodone-Acetaminophen 7.5-325 MG 10/03/2020 12:00:00 AM EDT 1.0 {tablet_as_needed} active HYDROcodone- Acetaminophen 7.5-325 MG eCW1 ([facility]) Acetaminophen 325 MG / Hydrocodone Brielle trate 7.5 MG Oral Tablet HYDROcodone- Acetaminophen 7.5-325 MG HYDROcodone-Acetaminophen 7.5-325 MG 10/03/2020 12:00:00 AM EDT 1.0 {tablet_as_needed} active HYDROcodone- Acetaminophen 7.5-325 MG eCW1 ([facility]) Acetaminophen 325 MG / Hydrocodone Brielle trate 7.5 MG Oral Tablet HYDROcodone- Acetaminophen 7.5-325 MG HYDROcodone-Acetaminophen 7.5-325 MG 10/03/2020 12:00:00 AM EDT 1.0 {tablet_as_needed} active HYDROcodone- Acetaminophen 7.5-325 MG eCW1 ([facility]) Amlodipine 2.5 MG Oral Tablet amLODIPine Besylate 2.5 MG amLODIPine Besylate 2.5 MG 09/30/2020 12:00:00 AM EDT 1.0 {tablet} activ e amLODIPine Besylate 2.5 MG eCW1 ([facility]) Amlodipine 2.5 MG Oral Tablet amLODIPine Besylate 2.5 MG amLODIPine Besylate 2.5 MG 09/30/2020 12:00:00 AM EDT 1.0 {tablet} activ e amLODIPine Besylate 2.5 MG eCW1 ([facility]) Amlodipine 2.5 MG Oral Tablet amLODIPine Besylate 2.5 MG amLODIPine Besylate 2.5 MG 09/30/2020 12:00:00 AM EDT 1.0 {tablet} activ e amLODIPine Besylate 2.5 MG eCW1 ([facility]) Amlodipine 2.5 MG Oral Tablet amLODIPine Besylate 2.5 MG amLODIPine Besylate 2.5 MG 09/30/2020 12:00:00 AM EDT 2.0 {tablets} acti ve amLODIPine Besylate 2.5 MG eCW1 ([facility]) Amlodipine 2.5 MG Oral Tablet amLODIPine Besylate 2.5 MG amLODIPine Besylate 2.5 MG 09/30/2020 12:00:00 AM EDT 2.0 {tablets} acti ve amLODIPine Besylate 2.5 MG eCW1 ([facility]) Amlodipine 2.5 MG Oral Tablet amLODIPine (NORVASC) 2.5 MG tablet amLODIPine (NORVASC) 2.5 MG tablet 09/30/2020 12:00:00 AM EDT active [facility] Amlodipine 2.5 MG Oral Tablet amLODIPine Besylate 2.5 MG amLODIPine Besylate 2.5 MG 09/30/2020 12:00:00 AM EDT 1.0 {tablet} activ e amLODIPine Besylate 2.5 MG eCW1 ([facility]) Amlodipine 2.5 MG Oral Tablet amLODIPine Besylate 2.5 MG amLODIPine Besylate 2.5 MG 09/30/2020 12:00:00 AM EDT 1.0 {tablet} activ e amLODIPine Besylate 2.5 MG eCW1 ([facility]) Amlodipine 2.5 MG Oral Tablet amLODIPine Besylate 2.5 MG amLODIPine Besylate 2.5 MG 09/30/2020 12:00:00 AM EDT 1.0 {tablet} activ e amLODIPine Besylate 2.5 MG eCW1 ([facility]) Amlodipine 2.5 MG Oral Tablet amLODIPine Besylate 2.5 MG amLODIPine Besylate 2.5 MG 09/30/2020 12:00:00 AM EDT 1.0 {tablet} activ e amLODIPine Besylate 2.5 MG eCW1 ([facility]) Amlodipine 2.5 MG Oral Tablet amLODIPine Besylate 2.5 MG amLODIPine Besylate 2.5 MG 09/30/2020 12:00:00 AM EDT 2.0 {tablets} acti ve amLODIPine Besylate 2.5 MG eCW1 ([facility]) Amlodipine 2.5 MG Oral Tablet amLODIPine Besylate 2.5 MG amLODIPine Besylate 2.5 MG 09/30/2020 12:00:00 AM EDT 2.0 {tablets} acti ve amLODIPine Besylate 2.5 MG eCW1 ([facility]) Amlodipine 2.5 MG Oral Tablet amLODIPine Besylate 2.5 MG amLODIPine Besylate 2.5 MG 09/30/2020 12:00:00 AM EDT 1.0 {tablet} activ e amLODIPine Besylate 2.5 MG eCW1 ([facility]) 3 ML Sodium Hyaluronate 10 MG/ML Prefilled Syringe [Gel-One] Gel-One 09/21/2020 12:00:00 AM EDT active M EDENT ([facility]) Acetaminophen 325 MG / Hydrocodone Brielle trate 7.5 MG Oral Tablet HYDROcodone- Acetaminophen 7.5-325 MG HYDROcodone-Acetaminophen 7.5-325 MG 09/12/2020 12:00:00 AM EDT 1.0 {tablet_as_needed} active HYDROcodone- Acetaminophen 7.5-325 MG eCW1 ([facility]) Acetaminophen 325 MG / Hydrocodone Brielle trate 7.5 MG Oral Tablet HYDROcodone- Acetaminophen 7.5-325 MG HYDROcodone-Acetaminophen 7.5-325 MG 09/12/2020 12:00:00 AM EDT 1.0 {tablet_as_needed} active HYDROcodone- Acetaminophen 7.5-325 MG eCW1 ([facility]) Acetaminophen 325 MG / Hydrocodone Brielle trate 7.5 MG Oral Tablet HYDROcodone- Acetaminophen 7.5-325 MG HYDROcodone-Acetaminophen 7.5-325 MG 09/12/2020 12:00:00 AM EDT 1.0 {tablet_as_needed} active HYDROcodone- Acetaminophen 7.5-325 MG eCW1 ([facility]) Acetaminophen 325 MG / Hydrocodone Brielle trate 7.5 MG Oral Tablet HYDROcodone- Acetaminophen 7.5-325 MG HYDROcodone-Acetaminophen 7.5-325 MG 09/12/2020 12:00:00 AM EDT 1.0 {tablet_as_needed} active HYDROcodone- Acetaminophen 7.5-325 MG W1 ([facility]) Hospital bed _ UNK 08/22/2020 12:00:00 AM EDT active Hospital bed _ eCW1 ([facility]) Hospital bed _ UNK 08/22/2020 12:00:00 AM EDT active Hospital bed _ eCW1 ([facility]) Hospital bed _ UNK 08/22/2020 12:00:00 AM EDT active Hospital bed _ eCW1 ([facility]) Hospital bed _ UNK 08/22/2020 12:00:00 AM EDT active Hospital bed _ eCW1 ([facility]) Hospital bed _ UNK 08/22/2020 12:00:00 AM EDT active Hospital bed _ eCW1 ([facility]) Hospital bed _ K 08/22/2020 12:00:00 AM EDT active Hospital bed _ eCW1 ([facility]) Hospital bed _ K 08/22/2020 12:00:00 AM EDT active Hospital bed _ eCW1 ([facility]) Hospital bed _ K 08/22/2020 12:00:00 AM EDT active Hospital bed _ eCW1 ([facility]) Hospital bed _ K 08/22/2020 12:00:00 AM EDT active Hospital bed _ eCW1 ([facility]) Hospital bed _ [facility] 08/22/2020 12:00:00 AM EDT active Hospital bed _ eCW1 ([facility]) Hospital bed _ [facility] 08/22/2020 12:00:00 AM EDT active Hospital bed _ eCW1 ([facility]) Hospital bed _ [facility] 08/22/2020 12:00:00 AM EDT active Hospital bed _ eCW1 ([facility]) Hospital bed _ [facility] 08/22/2020 12:00:00 AM EDT active Hospital bed _ eCW1 ([facility]) Hospital bed _ [facility] 08/22/2020 12:00:00 AM EDT active Hospital bed _ eCW1 ([facility]) Hospital bed _ K 08/22/2020 12:00:00 AM EDT active Hospital bed _ eCW1 ([facility]) Hospital bed _ K 08/22/2020 12:00:00 AM EDT active Hospital bed _ eCW1 ([facility]) Hospital bed _ K 08/22/2020 12:00:00 AM EDT active Hospital bed _ eCW1 ([facility]) Hospital bed _ K 08/22/2020 12:00:00 AM EDT active Hospital bed _ eCW1 ([facility]) Hospital bed _ K 08/22/2020 12:00:00 AM EDT active Hospital bed _ eCW1 ([facility]) Hospital bed _ [facility] 08/22/2020 12:00:00 AM EDT active Hospital bed _ eCW1 ([facility]) Acetaminophen 325 MG / Hydrocodone Brielle trate 7.5 MG Oral Tablet HYDROcodone- Acetaminophen 7.5-325 MG HYDROcodone-Acetaminophen 7.5-325 MG 08/02/2020 12:00:00 AM EDT 1.0 {tablet_as_needed} active HYDROcodone- Acetaminophen 7.5-325 MG eCW1 ([facility]) Acetaminophen 325 MG / Hydrocodone Brielle trate 7.5 MG Oral Tablet HYDROcodone- Acetaminophen 7.5-325 MG HYDROcodone-Acetaminophen 7.5-325 MG 08/02/2020 12:00:00 AM EDT 1.0 {tablet_as_needed} active HYDROcodone- Acetaminophen 7.5-325 MG eCW1 ([facility]) Acetaminophen 325 MG / Hydrocodone Brielle trate 7.5 MG Oral Tablet HYDROcodone- Acetaminophen 7.5-325 MG HYDROcodone-Acetaminophen 7.5-325 MG 08/02/2020 12:00:00 AM EDT 1.0 {tablet_as_needed} active HYDROcodone- Acetaminophen 7.5-325 MG eCW1 ([facility]) Acetaminophen 325 MG / Hydrocodone Brielle trate 7.5 MG Oral Tablet HYDROcodone- Acetaminophen 7.5-325 MG HYDROcodone-Acetaminophen 7.5-325 MG 08/02/2020 12:00:00 AM EDT 1.0 {tablet_as_needed} active HYDROcodone- Acetaminophen 7.5-325 MG eCW1 ([facility]) Acetaminophen 325 MG / Hydrocodone Brielle trate 7.5 MG Oral Tablet HYDROcodone- Acetaminophen 7.5-325 MG HYDROcodone-Acetaminophen 7.5-325 MG 08/02/2020 12:00:00 AM EDT 1.0 {tablet_as_needed} active HYDROcodone- Acetaminophen 7.5-325 MG eCW1 ([facility]) Acetaminophen 325 MG / Hydrocodone Brielle trate 7.5 MG Oral Tablet HYDROcodone- Acetaminophen 7.5-325 MG HYDROcodone-Acetaminophen 7.5-325 MG 08/02/2020 12:00:00 AM EDT 1.0 {tablet_as_needed} active HYDROcodone- Acetaminophen 7.5-325 MG eCW1 ([facility]) Acetaminophen 325 MG / Hydrocodone Brielle trate 7.5 MG Oral Tablet HYDROcodone- Acetaminophen 7.5-325 MG HYDROcodone-Acetaminophen 7.5-325 MG 08/02/2020 12:00:00 AM EDT 1.0 {tablet_as_needed} active HYDROcodone- Acetaminophen 7.5-325 MG eCW1 ([facility]) Blood Pressure Monitor - Blood Pressure Monitor - 07/29/2020 12:00: 00 AM EDT active Blood Pressure Monitor - eCW1 ([facility]) Blood Pressure Monitor - Blood Pressure Monitor - 07/29/2020 12:00: 00 AM EDT active Blood Pressure Monitor - eCW1 ([facility]) Blood Pressure Monitor - Blood Pressure Monitor - 07/29/2020 12:00: 00 AM EDT active Blood Pressure Monitor - eCW1 ([facility]) Blood Pressure Monitor - Blood Pressure Monitor - 07/29/2020 12:00: 00 AM EDT active Blood Pressure Monitor - eCW1 ([facility]) Blood Pressure Monitor - Blood Pressure Monitor - 07/29/2020 12:00: 00 AM EDT active Blood Pressure Monitor - eCW1 ([facility]) Blood Pressure Monitor - Blood Pressure Monitor - 07/29/2020 12:00: 00 AM EDT active Blood Pressure Monitor - eCW1 ([facility]) Blood Pressure Monitor - Blood Pressure Monitor - 07/29/2020 12:00: 00 AM EDT active Blood Pressure Monitor - eCW1 ([facility]) Blood Pressure Monitor - Blood Pressure Monitor - 07/29/2020 12:00: 00 AM EDT active Blood Pressure Monitor - eCW1 ([facility]) Blood Pressure Monitor - Blood Pressure Monitor - 07/29/2020 12:00: 00 AM EDT active Blood Pressure Monitor - eCW1 ([facility]) Blood Pressure Monitor - Blood Pressure Monitor - 07/29/2020 12:00: 00 AM EDT active Blood Pressure Monitor - eCW1 ([facility]) Blood Pressure Monitor - Blood Pressure Monitor - 07/29/2020 12:00: 00 AM EDT active Blood Pressure Monitor - eCW1 ([facility]) Blood Pressure Monitor - Blood Pressure Monitor - 07/29/2020 12:00: 00 AM EDT active Blood Pressure Monitor - eCW1 ([facility]) Blood Pressure Monitor - Blood Pressure Monitor - 07/29/2020 12:00: 00 AM EDT active Blood Pressure Monitor - eCW1 ([facility]) Blood Pressure Monitor - Blood Pressure Monitor - 07/29/2020 12:00: 00 AM EDT active Blood Pressure Monitor - eCW1 ([facility]) Blood Pressure Monitor - Blood Pressure Monitor - 07/29/2020 12:00: 00 AM EDT active Blood Pressure Monitor - eCW1 ([facility]) Blood Pressure Monitor - Blood Pressure Monitor - 07/29/2020 12:00: 00 AM EDT active Blood Pressure Monitor - eCW1 ([facility]) Blood Pressure Monitor - Blood Pressure Monitor - 07/29/2020 12:00: 00 AM EDT active Blood Pressure Monitor - eCW1 ([facility]) Blood Pressure Monitor - Blood Pressure Monitor - 07/29/2020 12:00: 00 AM EDT active Blood Pressure Monitor - eCW1 ([facility]) Blood Pressure Monitor - Blood Pressure Monitor - 07/29/2020 12:00: 00 AM EDT active Blood Pressure Monitor - eCW1 ([facility]) Blood Pressure Monitor - Blood Pressure Monitor - 07/29/2020 12:00: 00 AM EDT active Blood Pressure Monitor - eCW1 ([facility]) Blood Pressure Monitor - Blood Pressure Monitor - 07/29/2020 12:00: 00 AM EDT active Blood Pressure Monitor - eCW1 ([facility]) Blood Pressure Monitor - Blood Pressure Monitor - 07/29/2020 12:00: 00 AM EDT active Blood Pressure Monitor - eCW1 ([facility]) Blood Pressure Monitor - Blood Pressure Monitor - 07/29/2020 12:00: 00 AM EDT active Blood Pressure Monitor - eCW1 ([facility]) Blood Pressure Kit - Blood Pressure Kit - 07/22/2020 12:00:00 AM EDT active Blood Pressure Kit - eCW1 ([facility]) Blood Pressure Kit - Blood Pressure Kit - 07/22/2020 12:00:00 AM EDT active Blood Pressure Kit - eCW1 ([facility]) Blood Pressure Kit - Blood Pressure Kit - 07/22/2020 12:00:00 AM EDT active Blood Pressure Kit - eCW1 ([facility]) Blood Pressure Kit - Blood Pressure Kit - 07/22/2020 12:00:00 AM EDT active Blood Pressure Kit - eCW1 ([facility]) Blood Pressure Kit - Blood Pressure Kit - 07/22/2020 12:00:00 AM EDT active Blood Pressure Kit - eCW1 ([facility]) Blood Pressure Kit - Blood Pressure Kit - 07/22/2020 12:00:00 AM EDT active Blood Pressure Kit - eCW1 ([facility]) Blood Pressure Kit - Blood Pressure Kit - 07/22/2020 12:00:00 AM EDT active Blood Pressure Kit - eCW1 ([facility]) Blood Pressure Kit - Blood Pressure Kit - 07/22/2020 12:00:00 AM EDT active Blood Pressure Kit - eCW1 ([facility]) Blood Pressure Kit - Blood Pressure Kit - 07/22/2020 12:00:00 AM EDT active Blood Pressure Kit - eCW1 ([facility]) Blood Pressure Kit - Blood Pressure Kit - 07/22/2020 12:00:00 AM EDT active Blood Pressure Kit - eCW1 ([facility]) Blood Pressure Kit - Blood Pressure Kit - 07/22/2020 12:00:00 AM EDT active Blood Pressure Kit - eCW1 ([facility]) Blood Pressure Kit - Blood Pressure Kit - 07/22/2020 12:00:00 AM EDT active Blood Pressure Kit - eCW1 ([facility]) Blood Pressure Kit - Blood Pressure Kit - 07/22/2020 12:00:00 AM EDT active Blood Pressure Kit - eCW1 ([facility]) Blood Pressure Kit - Blood Pressure Kit - 07/22/2020 12:00:00 AM EDT active Blood Pressure Kit - eCW1 ([facility]) Blood Pressure Kit - Blood Pressure Kit - 07/22/2020 12:00:00 AM EDT active Blood Pressure Kit - eCW1 ([facility]) Blood Pressure Kit - Blood Pressure Kit - 07/22/2020 12:00:00 AM EDT active Blood Pressure Kit - eCW1 ([facility]) Blood Pressure Kit - Blood Pressure Kit - 07/22/2020 12:00:00 AM EDT active Blood Pressure Kit - eCW1 ([facility]) Blood Pressure Kit - Blood Pressure Kit - 07/22/2020 12:00:00 AM EDT active Blood Pressure Kit - eCW1 ([facility]) Blood Pressure Kit - Blood Pressure Kit - 07/22/2020 12:00:00 AM EDT active Blood Pressure Kit - eCW1 ([facility]) Blood Pressure Kit - Blood Pressure Kit - 07/22/2020 12:00:00 AM EDT active Blood Pressure Kit - eCW1 ([facility]) Blood Pressure Kit - Blood Pressure Kit - 07/22/2020 12:00:00 AM EDT active Blood Pressure Kit - eCW1 ([facility]) Blood Pressure Kit - Blood Pressure Kit - 07/22/2020 12:00:00 AM EDT active Blood Pressure Kit - eCW1 ([facility]) Blood Pressure Kit - Blood Pressure Kit - 07/22/2020 12:00:00 AM EDT active Blood Pressure Kit - eCW1 ([facility]) Blood Pressure Kit - Blood Pressure Kit - 07/22/2020 12:00:00 AM EDT active Blood Pressure Kit - eCW1 ([facility]) Blood Pressure Kit - Blood Pressure Kit - 07/22/2020 12:00:00 AM EDT active Blood Pressure Kit - eCW1 ([facility]) Spironolactone 25 MG Oral Tablet spironolactone (ALDAC TONE) 25 MG tablet spironolactone (ALDACTONE) 25 MG tablet 07/06/2020 12:00:00 AM EDT 25 mg Oral active Benign essential hypertension Take 1 tablet (25 mg total) by mouth daily [facility] Benign essential hypertension Losartan Potassium 100 MG Oral Tablet losartan (COZAAR ) 100 MG tablet losartan (COZAAR) 100 MG tablet 07/06/2020 12:00:00 AM EDT 100 mg Oral active Benign essential hypertension Take 1 tablet (100 mg total) b y mouth daily [facility] Benign essential hypertension empagliflozin 10 MG Oral Tablet [Jardiance] Jardiance 10 MG Jardiance 10 MG 07/05/2020 12:00:00 AM EDT 1.0 {tablet} active Jardiance 10 MG eCW1 ([facility]) empagliflozin 10 MG Oral Tablet [Jardiance] Jardiance 10 MG Jardiance 10 MG 07/05/2020 12:00:00 AM EDT 1.0 {tablet} active Jardiance 10 MG eCW1 ([facility]) empagliflozin 10 MG Oral Tablet [Jardiance] Jardiance 10 MG Jardiance 10 MG 07/05/2020 12:00:00 AM EDT 1.0 {tablet} active Jardiance 10 MG eCW1 ([facility]) empagliflozin 10 MG Oral Tablet [Jardiance] Jardiance 10 MG Jardiance 10 MG 07/05/2020 12:00:00 AM EDT 1.0 {tablet} active Jardiance 10 MG eCW1 ([facility]) empagliflozin 10 MG Oral Tablet [Jardiance] Jardiance 10 MG Jardiance 10 MG 07/05/2020 12:00:00 AM EDT 1.0 {tablet} active Jardiance 10 MG eCW1 ([facility]) empagliflozin 10 MG Oral Tablet [Jardiance] Jardiance 10 MG Jardiance 10 MG 07/05/2020 12:00:00 AM EDT 1.0 {tablet} active Jardiance 10 MG eCW1 ([facility]) empagliflozin 10 MG Oral Tablet [Jardiance] Jardiance 10 MG Jardiance 10 MG 07/05/2020 12:00:00 AM EDT 1.0 {tablet} active Jardiance 10 MG eCW1 ([facility]) empagliflozin 10 MG Oral Tablet [Jardiance] Jardiance 10 MG Jardiance 10 MG 07/05/2020 12:00:00 AM EDT 1.0 {tablet} active Jardiance 10 MG eCW1 ([facility]) empagliflozin 10 MG Oral Tablet [Jardiance] Jardiance 10 MG Jardiance 10 MG 07/05/2020 12:00:00 AM EDT 1.0 {tablet} active Jardiance 10 MG eCW1 ([facility]) empagliflozin 25 MG Oral Tablet [Jardiance] Jardiance 25 MG Jardiance 25 MG 07/05/2020 12:00:00 AM EDT 1.0 {tablet} active Jardiance 25 MG eCW1 ([facility]) empagliflozin 10 MG Oral Tablet [Jardiance] Jardiance 10 MG Jardiance 10 MG 07/05/2020 12:00:00 AM EDT 1.0 {tablet} active Jardiance 10 MG eCW1 ([facility]) empagliflozin 10 MG Oral Tablet [Jardiance] Jardiance 10 MG Jardiance 10 MG 07/05/2020 12:00:00 AM EDT 1.0 {tablet} active Jardiance 10 MG eCW1 ([facility]) empagliflozin 25 MG Oral Tablet [Jardiance] Jardiance 25 MG Jardiance 25 MG 07/05/2020 12:00:00 AM EDT 1.0 {tablet} active Jardiance 25 MG eCW1 ([facility]) empagliflozin 10 MG Oral Tablet [Jardiance] Jardiance 10 MG Jardiance 10 MG 07/05/2020 12:00:00 AM EDT 1.0 {tablet} active Jardiance 10 MG eCW1 ([facility]) empagliflozin 10 MG Oral Tablet [Jardiance] Jardiance 10 MG Jardiance 10 MG 07/05/2020 12:00:00 AM EDT 1.0 {tablet} active Jardiance 10 MG eCW1 ([facility]) empagliflozin 10 MG Oral Tablet [Jardiance] Jardiance 10 MG Jardiance 10 MG 07/05/2020 12:00:00 AM EDT 1.0 {tablet} active Jardiance 10 MG eCW1 ([facility]) empagliflozin 10 MG Oral Tablet [Jardiance] Jardiance 10 MG Jardiance 10 MG 07/05/2020 12:00:00 AM EDT 1.0 {tablet} active Jardiance 10 MG eCW1 ([facility]) empagliflozin 10 MG Oral Tablet [Jardiance] Jardiance 10 MG Jardiance 10 MG 07/05/2020 12:00:00 AM EDT 1.0 {tablet} active Jardiance 10 MG eCW1 ([facility]) empagliflozin 10 MG Oral Tablet [Jardiance] Jardiance 10 MG Jardiance 10 MG 07/05/2020 12:00:00 AM EDT 1.0 {tablet} active Jardiance 10 MG eCW1 ([facility]) empagliflozin 10 MG Oral Tablet [Jardiance] Jardiance 10 MG Jardiance 10 MG 07/05/2020 12:00:00 AM EDT 1.0 {tablet} active Jardiance 10 MG eCW1 ([facility]) empagliflozin 10 MG Oral Tablet [Jardiance] Jardiance 10 MG Jardiance 10 MG 07/05/2020 12:00:00 AM EDT 1.0 {tablet} active Jardiance 10 MG eCW1 ([facility]) empagliflozin 10 MG Oral Tablet [Jardiance] Jardiance 10 MG Jardiance 10 MG 07/05/2020 12:00:00 AM EDT 1.0 {tablet} active Jardiance 10 MG eCW1 ([facility]) empagliflozin 10 MG Oral Tablet [Jardiance] Jardiance 10 MG Jardiance 10 MG 07/05/2020 12:00:00 AM EDT 1.0 {tablet} active Jardiance 10 MG eCW1 ([facility]) empagliflozin 10 MG Oral Tablet [Jardiance] Jardiance 10 MG Jardiance 10 MG 07/05/2020 12:00:00 AM EDT 1.0 {tablet} active Jardiance 10 MG eCW1 ([facility]) empagliflozin 10 MG Oral Tablet [Jardiance] Jardiance 10 MG Jardiance 10 MG 07/05/2020 12:00:00 AM EDT 1.0 {tablet} active Jardiance 10 MG eCW1 ([facility]) empagliflozin 10 MG Oral Tablet [Jardiance] Jardiance 10 MG Jardiance 10 MG 07/05/2020 12:00:00 AM EDT 1.0 {tablet} active Jardiance 10 MG eCW1 ([facility]) empagliflozin 10 MG Oral Tablet [Jardiance] Jardiance 10 MG Jardiance 10 MG 07/05/2020 12:00:00 AM EDT 1.0 {tablet} active Jardiance 10 MG eCW1 ([facility]) empagliflozin 10 MG Oral Tablet [Jardiance] Jardiance 10 MG Jardiance 10 MG 07/05/2020 12:00:00 AM EDT 1.0 {tablet} active Jardiance 10 MG eCW1 ([facility]) empagliflozin 10 MG Oral Tablet [Jardiance] Jardiance 10 MG Jardiance 10 MG 07/05/2020 12:00:00 AM EDT 1.0 {tablet} active Jardiance 10 MG eCW1 ([facility]) empagliflozin 10 MG Oral Tablet [Jardiance] Jardiance 10 MG Jardiance 10 MG 07/05/2020 12:00:00 AM EDT 1.0 {tablet} active Jardiance 10 MG eCW1 ([facility]) torsemide 10 MG Oral Tablet torsemide (DEMADEX) 10 MG tablet torsemide (DEMADEX) 10 MG tablet 06/08/2020 12:00:00 AM EDT 10 mg Oral acti ve Take 1 tablet (10 mg total) by mouth daily [facility] Losartan Potassium 50 MG Oral Tablet losartan (COZAAR) 50 MG tablet losartan (COZAAR) 50 MG tablet 06/08/2020 12:00:00 AM EDT 75 mg Oral aborted Benign essential hypertensionCongestive heart failure, unspecified HF chronicity, unspecified heart failure type Take 1.5 tablets (75 mg total ) by mouth daily [facility] Benign essential hypertension Congestive heart failure, unspecified HF chronicity, unspecified heart failure type Acetaminophen 325 MG / Hydrocodone Brielle trate 5 MG Oral Tablet Hydrocodone- Acetaminophen 5-325 MG Hydrocodone-Acetaminophen 5-325 MG 06/07/2020 12:00:00 AM EDT 1.0 {tablet_as_needed} active Hydrocodone-Acetaminophen 5-325 MG eCW1 ([facility]) Acetaminophen 325 MG / Hydrocodone Brielle trate 5 MG Oral Tablet Hydrocodone- Acetaminophen 5-325 MG Hydrocodone-Acetaminophen 5-325 MG 06/07/2020 12:00:00 AM EDT 1.0 {tablet_as_needed} active Hydrocodone-Acetaminophen 5-325 MG eCW1 ([facility]) Acetaminophen 325 MG / Hydrocodone Brielle trate 5 MG Oral Tablet Hydrocodone- Acetaminophen 5-325 MG Hydrocodone-Acetaminophen 5-325 MG 06/07/2020 12:00:00 AM EDT 1.0 {tablet_as_needed} active Hydrocodone-Acetaminophen 5-325 MG eCW1 ([facility]) Acetaminophen 325 MG / Hydrocodone Brielle trate 5 MG Oral Tablet Hydrocodone- Acetaminophen 5-325 MG Hydrocodone-Acetaminophen 5-325 MG 06/07/2020 12:00:00 AM EDT 1.0 {tablet_as_needed} active Hydrocodone-Acetaminophen 5-325 MG eCW1 ([facility]) 24 HR Metformin hydrochloride 500 MG Ext ended Release Oral Tablet metFORMIN (GLUCOPHATE-XR) 500 MG 24 hr tablet metFORMIN (GLUCOPHATE-XR) 500 MG 24 hr tablet 06/07/2020 12:00:00 AM EDT aborted [facility] empagliflozin 10 MG Oral Tablet [Jardiance] JARDIANCE 10 MG TABS JARDIANCE 10 MG TABS 06/07/2020 12:00:00 AM EDT aborted [facility] Acetaminophen 325 MG / Hydrocodone Brielle trate 5 MG Oral Tablet Hydrocodone- Acetaminophen 5-325 MG Hydrocodone-Acetaminophen 5-325 MG 06/07/2020 12:00:00 AM EDT 1.0 {tablet_as_needed} active Hydrocodone-Acetaminophen 5-325 MG eCW1 ([facility]) Acetaminophen 325 MG / Hydrocodone Brielle trate 5 MG Oral Tablet Hydrocodone- Acetaminophen 5-325 MG Hydrocodone-Acetaminophen 5-325 MG 06/07/2020 12:00:00 AM EDT 1.0 {tablet_as_needed} active Hydrocodone-Acetaminophen 5-325 MG eCW1 ([facility]) Acetaminophen 325 MG / Hydrocodone Brielle trate 5 MG Oral Tablet Hydrocodone- Acetaminophen 5-325 MG Hydrocodone-Acetaminophen 5-325 MG 06/07/2020 12:00:00 AM EDT 1.0 {tablet_as_needed} active Hydrocodone-Acetaminophen 5-325 MG eCW1 ([facility]) Acetaminophen 325 MG / Hydrocodone Brielle trate 5 MG Oral Tablet Hydrocodone- Acetaminophen 5-325 MG Hydrocodone-Acetaminophen 5-325 MG 06/07/2020 12:00:00 AM EDT 1.0 {tablet_as_needed} active Hydrocodone-Acetaminophen 5-325 MG eCW1 ([facility]) Acetaminophen 325 MG / Hydrocodone Brielle trate 5 MG Oral Tablet Hydrocodone- Acetaminophen 5-325 MG Hydrocodone-Acetaminophen 5-325 MG 06/07/2020 12:00:00 AM EDT 1.0 {tablet_as_needed} active Hydrocodone-Acetaminophen 5-325 MG eCW1 ([facility]) Acetaminophen 325 MG / Hydrocodone Brielle trate 5 MG Oral Tablet Hydrocodone- Acetaminophen 5-325 MG Hydrocodone-Acetaminophen 5-325 MG 06/07/2020 12:00:00 AM EDT 1.0 {tablet_as_needed} active Hydrocodone-Acetaminophen 5-325 MG eCW1 ([facility]) Acetaminophen 325 MG / Hydrocodone Brielle trate 5 MG Oral Tablet Hydrocodone- Acetaminophen 5-325 MG Hydrocodone-Acetaminophen 5-325 MG 06/07/2020 12:00:00 AM EDT 1.0 {tablet_as_needed} active Hydrocodone-Acetaminophen 5-325 MG eCW1 ([facility]) Acetaminophen 325 MG / Hydrocodone Brielle trate 5 MG Oral Tablet Hydrocodone- Acetaminophen 5-325 MG Hydrocodone-Acetaminophen 5-325 MG 06/07/2020 12:00:00 AM EDT 1.0 {tablet_as_needed} active Hydrocodone-Acetaminophen 5-325 MG eCW1 ([facility]) Acetaminophen 325 MG / Hydrocodone Brielle trate 5 MG Oral Tablet Hydrocodone- Acetaminophen 5-325 MG Hydrocodone-Acetaminophen 5-325 MG 06/07/2020 12:00:00 AM EDT 1.0 {tablet_as_needed} active Hydrocodone-Acetaminophen 5-325 MG eCW1 ([facility]) Acetaminophen 325 MG / Hydrocodone Brielle trate 5 MG Oral Tablet Hydrocodone- Acetaminophen 5-325 MG Hydrocodone-Acetaminophen 5-325 MG 06/07/2020 12:00:00 AM EDT 1.0 {tablet_as_needed} active Hydrocodone-Acetaminophen 5-325 MG eCW1 ([facility]) Acetaminophen 325 MG / Hydrocodone Brielle trate 5 MG Oral Tablet Hydrocodone- Acetaminophen 5-325 MG Hydrocodone-Acetaminophen 5-325 MG 06/07/2020 12:00:00 AM EDT 1.0 {tablet_as_needed} active Hydrocodone-Acetaminophen 5-325 MG eCW1 ([facility]) Levothyroxine Sodium 0.025 MG Oral Tablet Levothyroxin e Sodium 25 MCG Levothyroxine Sodium 25 MCG 06/03/2020 12:00:00 AM EDT active Levothyroxine Sodium 25 MCG eCW1 ([facility]) Levothyroxine Sodium 0.025 MG Oral Tablet Levothyroxin e Sodium 25 MCG Levothyroxine Sodium 25 MCG 06/03/2020 12:00:00 AM EDT active Levothyroxine Sodium 25 MCG eCW1 ([facility]) Levothyroxine Sodium 0.025 MG Oral Tablet Levothyroxin e Sodium 25 MCG Levothyroxine Sodium 25 MCG 06/03/2020 12:00:00 AM EDT active Levothyroxine Sodium 25 MCG eCW1 ([facility]) Levothyroxine Sodium 0.025 MG Oral Tablet Levothyroxin e Sodium 25 MCG Levothyroxine Sodium 25 MCG 06/03/2020 12:00:00 AM EDT active Levothyroxine Sodium 25 MCG eCW1 ([facility]) Levothyroxine Sodium 0.025 MG Oral Tablet Levothyroxin e Sodium 25 MCG Levothyroxine Sodium 25 MCG 06/03/2020 12:00:00 AM EDT active Levothyroxine Sodium 25 MCG eCW1 ([facility]) Levothyroxine Sodium 0.025 MG Oral Tablet Levothyroxin e Sodium 25 MCG Levothyroxine Sodium 25 MCG 06/03/2020 12:00:00 AM EDT active Levothyroxine Sodium 25 MCG eCW1 ([facility]) Levothyroxine Sodium 0.025 MG Oral Tablet Levothyroxin e Sodium 25 MCG Levothyroxine Sodium 25 MCG 06/03/2020 12:00:00 AM EDT active Levothyroxine Sodium 25 MCG eCW1 ([facility]) Levothyroxine Sodium 0.025 MG Oral Tablet Levothyroxin e Sodium 25 MCG Levothyroxine Sodium 25 MCG 06/03/2020 12:00:00 AM EDT active Levothyroxine Sodium 25 MCG eCW1 ([facility]) Levothyroxine Sodium 0.025 MG Oral Tablet Levothyroxin e Sodium 25 MCG Levothyroxine Sodium 25 MCG 06/03/2020 12:00:00 AM EDT active Levothyroxine Sodium 25 MCG eCW1 ([facility]) Levothyroxine Sodium 0.025 MG Oral Tablet Levothyroxin e Sodium 25 MCG Levothyroxine Sodium 25 MCG 06/03/2020 12:00:00 AM EDT active Levothyroxine Sodium 25 MCG eCW1 ([facility]) Levothyroxine Sodium 0.025 MG Oral Tablet Levothyroxin e Sodium 25 MCG Levothyroxine Sodium 25 MCG 06/03/2020 12:00:00 AM EDT active Levothyroxine Sodium 25 MCG eCW1 ([facility]) Levothyroxine Sodium 0.025 MG Oral Tablet Levothyroxin e Sodium 25 MCG Levothyroxine Sodium 25 MCG 06/03/2020 12:00:00 AM EDT active Levothyroxine Sodium 25 MCG eCW1 ([facility]) Levothyroxine Sodium 0.025 MG Oral Tablet Levothyroxin e Sodium 25 MCG Levothyroxine Sodium 25 MCG 06/03/2020 12:00:00 AM EDT active Levothyroxine Sodium 25 MCG eCW1 ([facility]) Levothyroxine Sodium 0.025 MG Oral Tablet Levothyroxin e Sodium 25 MCG Levothyroxine Sodium 25 MCG 06/03/2020 12:00:00 AM EDT active Levothyroxine Sodium 25 MCG eCW1 ([facility]) Levothyroxine Sodium 0.025 MG Oral Tablet Levothyroxin e Sodium 25 MCG Levothyroxine Sodium 25 MCG 06/03/2020 12:00:00 AM EDT active Levothyroxine Sodium 25 MCG eCW1 ([facility]) Levothyroxine Sodium 0.025 MG Oral Tablet Levothyroxin e Sodium 25 MCG Levothyroxine Sodium 25 MCG 06/03/2020 12:00:00 AM EDT active Levothyroxine Sodium 25 MCG eCW1 ([facility]) Levothyroxine Sodium 0.025 MG Oral Tablet Levothyroxin e Sodium 25 MCG Levothyroxine Sodium 25 MCG 06/03/2020 12:00:00 AM EDT active Levothyroxine Sodium 25 MCG eCW1 ([facility]) Levothyroxine Sodium 0.025 MG Oral Tablet Levothyroxin e Sodium 25 MCG Levothyroxine Sodium 25 MCG 06/03/2020 12:00:00 AM EDT active Levothyroxine Sodium 25 MCG eCW1 ([facility]) Levothyroxine Sodium 0.025 MG Oral Tablet Levothyroxin e Sodium 25 MCG Levothyroxine Sodium 25 MCG 06/03/2020 12:00:00 AM EDT active Levothyroxine Sodium 25 MCG eCW1 ([facility]) Levothyroxine Sodium 0.025 MG Oral Tablet Levothyroxin e Sodium 25 MCG Levothyroxine Sodium 25 MCG 06/03/2020 12:00:00 AM EDT active Levothyroxine Sodium 25 MCG eCW1 ([facility]) Levothyroxine Sodium 0.025 MG Oral Tablet Levothyroxin e Sodium 25 MCG Levothyroxine Sodium 25 MCG 06/03/2020 12:00:00 AM EDT active Levothyroxine Sodium 25 MCG eCW1 ([facility]) Levothyroxine Sodium 0.025 MG Oral Tablet Levothyroxin e Sodium 25 MCG Levothyroxine Sodium 25 MCG 06/03/2020 12:00:00 AM EDT active Levothyroxine Sodium 25 MCG eCW1 ([facility]) Levothyroxine Sodium 0.025 MG Oral Tablet Levothyroxin e Sodium 25 MCG Levothyroxine Sodium 25 MCG 06/03/2020 12:00:00 AM EDT active Levothyroxine Sodium 25 MCG eCW1 ([facility]) Levothyroxine Sodium 0.025 MG Oral Tablet Levothyroxin e Sodium 25 MCG Levothyroxine Sodium 25 MCG 06/03/2020 12:00:00 AM EDT active Levothyroxine Sodium 25 MCG eCW1 ([facility]) Levothyroxine Sodium 0.025 MG Oral Tablet Levothyroxin e Sodium 25 MCG Levothyroxine Sodium 25 MCG 06/03/2020 12:00:00 AM EDT active Levothyroxine Sodium 25 MCG eCW1 ([facility]) Levothyroxine Sodium 0.025 MG Oral Tablet Levothyroxin e Sodium 25 MCG Levothyroxine Sodium 25 MCG 06/03/2020 12:00:00 AM EDT active Levothyroxine Sodium 25 MCG eCW1 ([facility]) Levothyroxine Sodium 0.025 MG Oral Tablet Levothyroxin e Sodium 25 MCG Levothyroxine Sodium 25 MCG 06/03/2020 12:00:00 AM EDT active Levothyroxine Sodium 25 MCG eCW1 ([facility]) Losartan Potassium 50 MG Oral Tablet Losartan Potassium 50 M G 05/17/2020 12:00:00 AM EDT 1.5 {tablets} active L osartan Potassium 50 MG eCW1 ([facility]) Losartan Potassium 50 MG Oral Tablet Losartan Potassium 50 M G 05/17/2020 12:00:00 AM EDT active Losartan Potassium 50 MG eCW1 ([facility]) Losartan Potassium 50 MG Oral Tablet Losartan Potassium 50 M G 05/17/2020 12:00:00 AM EDT 1.5 {tablets} active L osartan Potassium 50 MG eCW1 ([facility]) Losartan Potassium 100 MG Oral Tablet Losartan Potassium 100 MG 05/17/2020 12:00:00 AM EDT 1.0 {tablet} active Lo sartan Potassium 100 MG eCW1 ([facility]) Losartan Potassium 50 MG Oral Tablet Losartan Potassium 50 M G 05/17/2020 12:00:00 AM EDT active Losartan Potassium 50 MG eCW1 ([facility]) Losartan Potassium 50 MG Oral Tablet Losartan Potassium 50 M G 05/17/2020 12:00:00 AM EDT 1.5 {tablets} active L osartan Potassium 50 MG eCW1 ([facility]) Losartan Potassium 100 MG Oral Tablet Losartan Potassium 100 MG 05/17/2020 12:00:00 AM EDT 1.0 {tablet} active Lo sartan Potassium 100 MG eCW1 ([facility]) Losartan Potassium 50 MG Oral Tablet Losartan Potassium 50 M G 05/17/2020 12:00:00 AM EDT active Losartan Potassium 50 MG eCW1 ([facility]) Losartan Potassium 50 MG Oral Tablet losartan (COZAAR) 50 MG tablet losartan (COZAAR) 50 MG tablet 05/17/2020 12:00:00 AM EDT a [facility] Losartan Potassium 100 MG Oral Tablet Losartan Potassium 100 MG 05/17/2020 12:00:00 AM EDT 1.0 {tablet} active Lo sartan Potassium 100 MG eCW1 ([facility]) Losartan Potassium 50 MG Oral Tablet Losartan Potassium 50 M G 05/17/2020 12:00:00 AM EDT active Losartan Potassium 50 MG eCW1 ([facility]) Losartan Potassium 100 MG Oral Tablet Losartan Potassium 100 MG 05/17/2020 12:00:00 AM EDT 1.0 {tablet} active Lo sartan Potassium 100 MG eCW1 ([facility]) Losartan Potassium 50 MG Oral Tablet Losartan Potassium 50 M G 05/17/2020 12:00:00 AM EDT active Losartan Potassium 50 MG eCW1 ([facility]) Losartan Potassium 50 MG Oral Tablet Losartan Potassium 50 M G 05/17/2020 12:00:00 AM EDT active Losartan Potassium 50 MG eCW1 ([facility]) Losartan Potassium 50 MG Oral Tablet Losartan Potassium 50 M G 05/17/2020 12:00:00 AM EDT 1.5 {tablets} active L osartan Potassium 50 MG eCW1 ([facility]) Losartan Potassium 50 MG Oral Tablet Losartan Potassium 50 M G 05/17/2020 12:00:00 AM EDT 1.5 {tablets} active L osartan Potassium 50 MG eCW1 ([facility]) Losartan Potassium 50 MG Oral Tablet Losartan Potassium 50 M G 05/17/2020 12:00:00 AM EDT active Losartan Potassium 50 MG eCW1 ([facility]) Losartan Potassium 50 MG Oral Tablet Losartan Potassium 50 M G 05/17/2020 12:00:00 AM EDT active Losartan Potassium 50 MG eCW1 ([facility]) Losartan Potassium 50 MG Oral Tablet Losartan Potassium 50 M G 05/17/2020 12:00:00 AM EDT active Losartan Potassium 50 MG eCW1 ([facility]) Losartan Potassium 100 MG Oral Tablet Losartan Potassium 100 MG 05/17/2020 12:00:00 AM EDT 1.0 {tablet} active Lo sartan Potassium 100 MG eCW1 ([facility]) Losartan Potassium 50 MG Oral Tablet Losartan Potassium 50 M G 05/17/2020 12:00:00 AM EDT active Losartan Potassium 50 MG eCW1 ([facility]) Losartan Potassium 50 MG Oral Tablet Losartan Potassium 50 M G 05/17/2020 12:00:00 AM EDT active Losartan Potassium 50 MG eCW1 ([facility]) Losartan Potassium 100 MG Oral Tablet Losartan Potassium 100 MG 05/17/2020 12:00:00 AM EDT 1.0 {tablet} active Lo sartan Potassium 100 MG eCW1 ([facility]) Losartan Potassium 50 MG Oral Tablet Losartan Potassium 50 M G 05/17/2020 12:00:00 AM EDT active Losartan Potassium 50 MG eCW1 ([facility]) Losartan Potassium 50 MG Oral Tablet Losartan Potassium 50 M G 05/17/2020 12:00:00 AM EDT active Losartan Potassium 50 MG eCW1 ([facility]) Losartan Potassium 50 MG Oral Tablet Losartan Potassium 50 M G 05/17/2020 12:00:00 AM EDT active Losartan Potassium 50 MG eCW1 ([facility]) Losartan Potassium 50 MG Oral Tablet Losartan Potassium 50 M G 05/17/2020 12:00:00 AM EDT active Losartan Potassium 50 MG eCW1 ([facility]) Losartan Potassium 50 MG Oral Tablet Losartan Potassium 50 M G 05/17/2020 12:00:00 AM EDT active Losartan Potassium 50 MG eCW1 ([facility]) Losartan Potassium 50 MG Oral Tablet Losartan Potassium 50 M G 05/17/2020 12:00:00 AM EDT 1.5 {tablets} active L osartan Potassium 50 MG eCW1 ([facility]) Losartan Potassium 50 MG Oral Tablet Losartan Potassium 50 M G 05/17/2020 12:00:00 AM EDT active Losartan Potassium 50 MG eCW1 ([facility]) Losartan Potassium 50 MG Oral Tablet Losartan Potassium 50 M G 05/17/2020 12:00:00 AM EDT active Losartan Potassium 50 MG eCW1 ([facility]) Losartan Potassium 50 MG Oral Tablet Losartan Potassium 50 M G 05/17/2020 12:00:00 AM EDT active Losartan Potassium 50 MG eCW1 ([facility]) Losartan Potassium 50 MG Oral Tablet Losartan Potassium 50 M G 05/17/2020 12:00:00 AM EDT active Losartan Potassium 50 MG eCW1 ([facility]) Losartan Potassium 100 MG Oral Tablet Losartan Potassium 100 MG 05/17/2020 12:00:00 AM EDT 1.0 {tablet} active Lo sartan Potassium 100 MG eCW1 ([facility]) Losartan Potassium 50 MG Oral Tablet Losartan Potassium 50 M G 05/17/2020 12:00:00 AM EDT active Losartan Potassium 50 MG eCW1 ([facility]) Losartan Potassium 100 MG Oral Tablet Losartan Potassium 100 MG 05/17/2020 12:00:00 AM EDT 1.0 {tablet} active Lo sartan Potassium 100 MG eCW1 ([facility]) Losartan Potassium 100 MG Oral Tablet Losartan Potassium 100 MG 05/17/2020 12:00:00 AM EDT 1.0 {tablet} active Lo sartan Potassium 100 MG eCW1 ([facility]) Losartan Potassium 50 MG Oral Tablet Losartan Potassium 50 M G 05/17/2020 12:00:00 AM EDT active Losartan Potassium 50 MG eCW1 ([facility]) Losartan Potassium 100 MG Oral Tablet Losartan Potassium 100 MG 05/17/2020 12:00:00 AM EDT 1.0 {tablet} active Lo sartan Potassium 100 MG eCW1 ([facility]) Losartan Potassium 100 MG Oral Tablet Losartan Potassium 100 MG 05/17/2020 12:00:00 AM EDT 1.0 {tablet} active Lo sartan Potassium 100 MG eCW1 ([facility]) Losartan Potassium 100 MG Oral Tablet Losartan Potassium 100 MG 05/17/2020 12:00:00 AM EDT 1.0 {tablet} active Lo sartan Potassium 100 MG eCW1 ([facility]) Acetaminophen 325 MG / Hydrocodone Brielle trate 5 MG Oral Tablet Hydrocodone- Acetaminophen 5-325 MG Hydrocodone-Acetaminophen 5-325 MG 05/12/2020 12:00:00 AM EDT 1.0 {tablet_as_needed} active Hydrocodone-Acetaminophen 5-325 MG eCW1 ([facility]) Acetaminophen 325 MG / Hydrocodone Brielle trate 5 MG Oral Tablet Hydrocodone- Acetaminophen 5-325 MG Hydrocodone-Acetaminophen 5-325 MG 05/12/2020 12:00:00 AM EDT 1.0 {tablet_as_needed} active Hydrocodone-Acetaminophen 5-325 MG eCW1 ([facility]) Acetaminophen 325 MG / Hydrocodone Brielle trate 5 MG Oral Tablet Hydrocodone- Acetaminophen 5-325 MG Hydrocodone-Acetaminophen 5-325 MG 05/12/2020 12:00:00 AM EDT 1.0 {tablet_as_needed} active Hydrocodone-Acetaminophen 5-325 MG eCW1 ([facility]) Acetaminophen 325 MG / Hydrocodone Brielle trate 5 MG Oral Tablet Hydrocodone- Acetaminophen 5-325 MG Hydrocodone-Acetaminophen 5-325 MG 05/12/2020 12:00:00 AM EDT 1.0 {tablet_as_needed} active Hydrocodone-Acetaminophen 5-325 MG eCW1 ([facility]) empagliflozin 10 MG Oral Tablet [Jardiance] Jardiance 10 MG Jardiance 10 MG 04/21/2020 12:00:00 AM EST 1.0 {tablet} active Jardiance 10 MG eCW1 ([facility]) empagliflozin 10 MG Oral Tablet [Jardiance] Jardiance 10 MG Jardiance 10 MG 04/21/2020 12:00:00 AM EST 1.0 {tablet} active Jardiance 10 MG eCW1 ([facility]) empagliflozin 10 MG Oral Tablet [Jardiance] Jardiance 10 MG Jardiance 10 MG 04/21/2020 12:00:00 AM EST 1.0 {tablet} active Jardiance 10 MG eCW1 ([facility]) empagliflozin 10 MG Oral Tablet [Jardiance] Jardiance 10 MG Jardiance 10 MG 04/21/2020 12:00:00 AM EST 1.0 {tablet} active Jardiance 10 MG eCW1 ([facility]) empagliflozin 10 MG Oral Tablet [Jardiance] Jardiance 10 MG Jardiance 10 MG 04/21/2020 12:00:00 AM EST 1.0 {tablet} active Jardiance 10 MG eCW1 ([facility]) carvedilol 6.25 MG Oral Tablet carvedilol (COREG) 6.25 MG tablet carvedilol (COREG) 6.25 MG tablet 04/15/2020 12:00:00 AM EST 6.25 mg Oral aborted Take 1 tablet (6.25 mg total) by mouth 2 (two) times a day [facility] Acetaminophen 325 MG / Hydrocodone Brielle trate 5 MG Oral Tablet Hydrocodone- Acetaminophen 5-325 MG Hydrocodone-Acetaminophen 5-325 MG 04/11/2020 12:00:00 AM EST 1.0 {tablet_as_needed} active Hydrocodone-Acetaminophen 5-325 MG eCW1 ([facility]) Acetaminophen 325 MG / Hydrocodone Brielle trate 5 MG Oral Tablet Hydrocodone- Acetaminophen 5-325 MG Hydrocodone-Acetaminophen 5-325 MG 04/11/2020 12:00:00 AM EST 1.0 {tablet_as_needed} active Hydrocodone-Acetaminophen 5-325 MG eCW1 ([facility]) Acetaminophen 325 MG / Hydrocodone Brielle trate 5 MG Oral Tablet Hydrocodone- Acetaminophen 5-325 MG Hydrocodone-Acetaminophen 5-325 MG 04/11/2020 12:00:00 AM EST 1.0 {tablet_as_needed} active Hydrocodone-Acetaminophen 5-325 MG eCW1 ([facility]) Acetaminophen 325 MG / Hydrocodone Brielle trate 5 MG Oral Tablet Hydrocodone- Acetaminophen 5-325 MG Hydrocodone-Acetaminophen 5-325 MG 04/11/2020 12:00:00 AM EST 1.0 {tablet_as_needed} active Hydrocodone-Acetaminophen 5-325 MG eCW1 ([facility]) Acetaminophen 325 MG / Hydrocodone Brielle trate 5 MG Oral Tablet Hydrocodone- Acetaminophen 5-325 MG Hydrocodone-Acetaminophen 5-325 MG 04/11/2020 12:00:00 AM EST 1.0 {tablet_as_needed} active Hydrocodone-Acetaminophen 5-325 MG eCW1 ([facility]) Acetaminophen 325 MG / Hydrocodone Brielle trate 5 MG Oral Tablet Hydrocodone- Acetaminophen 5-325 MG Hydrocodone-Acetaminophen 5-325 MG 04/11/2020 12:00:00 AM EST 1.0 {tablet_as_needed} active Hydrocodone-Acetaminophen 5-325 MG eCW1 ([facility]) Acetaminophen 325 MG / Hydrocodone Brielle trate 5 MG Oral Tablet Hydrocodone- Acetaminophen 5-325 MG Hydrocodone-Acetaminophen 5-325 MG 04/11/2020 12:00:00 AM EST 1.0 {tablet_as_needed} active Hydrocodone-Acetaminophen 5-325 MG eCW1 ([facility]) Amlodipine 2.5 MG Oral Tablet AmLODIPine Besylate 2.5 MG AmLODIPine Besylate 2.5 MG 04/04/2020 12:00:00 AM EST 1.0 {tablet} activ e AmLODIPine Besylate 2.5 MG eCW1 ([facility]) Amlodipine 2.5 MG Oral Tablet AmLODIPine Besylate 2.5 MG AmLODIPine Besylate 2.5 MG 04/04/2020 12:00:00 AM EST 1.0 {tablet} activ e AmLODIPine Besylate 2.5 MG eCW1 ([facility]) Amlodipine 2.5 MG Oral Tablet AmLODIPine Besylate 2.5 MG AmLODIPine Besylate 2.5 MG 04/04/2020 12:00:00 AM EST 1.0 {tablet} activ e AmLODIPine Besylate 2.5 MG eCW1 ([facility]) Amlodipine 2.5 MG Oral Tablet AmLODIPine Besylate 2.5 MG AmLODIPine Besylate 2.5 MG 04/04/2020 12:00:00 AM EST 1.0 {tablet} activ e AmLODIPine Besylate 2.5 MG eCW1 ([facility]) Amlodipine 2.5 MG Oral Tablet AmLODIPine Besylate 2.5 MG AmLODIPine Besylate 2.5 MG 04/04/2020 12:00:00 AM EST 1.0 {tablet} activ e AmLODIPine Besylate 2.5 MG eCW1 ([facility]) Amlodipine 2.5 MG Oral Tablet AmLODIPine Besylate 2.5 MG AmLODIPine Besylate 2.5 MG 04/04/2020 12:00:00 AM EST 1.0 {tablet} activ e AmLODIPine Besylate 2.5 MG eCW1 ([facility]) Amlodipine 2.5 MG Oral Tablet AmLODIPine Besylate 2.5 MG AmLODIPine Besylate 2.5 MG 04/04/2020 12:00:00 AM EST 1.0 {tablet} activ e AmLODIPine Besylate 2.5 MG eCW1 ([facility]) Amlodipine 2.5 MG Oral Tablet AmLODIPine Besylate 2.5 MG AmLODIPine Besylate 2.5 MG 04/04/2020 12:00:00 AM EST 1.0 {tablet} activ e AmLODIPine Besylate 2.5 MG eCW1 ([facility]) Amlodipine 2.5 MG Oral Tablet amLODIPine (NORVASC) 2.5 MG tablet amLODIPine (NORVASC) 2.5 MG tablet 04/04/2020 12:00:00 AM EST 5 mg Oral aborted Take 5 mg by mouth daily [facility] Amlodipine 2.5 MG Oral Tablet AmLODIPine Besylate 2.5 MG AmLODIPine Besylate 2.5 MG 04/04/2020 12:00:00 AM EST 1.0 {tablet} activ e AmLODIPine Besylate 2.5 MG eCW1 ([facility]) Potassium Chloride 10 MEQ Extended Relea se Oral Tablet potassium chloride (K- DUR) 10 MEQ tablet potassium chloride (K-DUR) 10 MEQ tablet 04/02/2020 12 :00:00 AM EST aborted [facility] 24 HR Metformin hydrochloride 500 MG Ext ended Release Oral Tablet metFORMIN (GLUCOPHATE-XR) 500 MG 24 hr tablet metFORMIN (GLUCOPHATE-XR) 500 MG 24 hr tablet 03/19/2020 12:00:00 AM EST aborted [facility] Sucralfate 1000 MG Oral Tablet [Carafate] Carafate 1 GM Brooke fate 1 GM 03/08/2020 12:00:00 AM EST 1.0 {tablet_on_an_empty_stomach} active Carafate 1 GM W1 ([facility]) Sucralfate 1000 MG Oral Tablet [Carafate] Carafate 1 GM Brooke fate 1 GM 03/08/2020 12:00:00 AM EST 1.0 {tablet_on_an_empty_stomach} active Carafate 1 GM [facility] ([facility]) Sucralfate 1000 MG Oral Tablet [Carafate] Carafate 1 GM Brooke fate 1 GM 03/08/2020 12:00:00 AM EST 1.0 {tablet_on_an_empty_stomach} active Carafate 1 GM W1 ([facility]) Sucralfate 1000 MG Oral Tablet [Carafate] Carafate 1 GM Brooke fate 1 GM 03/08/2020 12:00:00 AM EST 1.0 {tablet_on_an_empty_stomach} active Carafate 1 GM W1 ([facility]) Sucralfate 1000 MG Oral Tablet [Carafate] Carafate 1 GM Brooke fate 1 GM 03/08/2020 12:00:00 AM EST 1.0 {tablet_on_an_empty_stomach} active Carafate 1 GM W1 ([facility]) Sucralfate 1000 MG Oral Tablet [Carafate] Carafate 1 GM Brooke fate 1 GM 03/08/2020 12:00:00 AM EST 1.0 {tablet_on_an_empty_stomach} active Carafate 1 GM eCW1 ([facility]) Sucralfate 1000 MG Oral Tablet sucralfate (CARAFATE) 1 g tablet sucralfate (CARAFATE) 1 g tablet 03/08/2020 12:00:00 AM EST 1 g Oral active Take 1 g by mouth 3 (three) times a day [facility] Acetaminophen 325 MG / Hydrocodone Brielle trate 5 MG Oral Tablet Hydrocodone- Acetaminophen 5-325 MG Hydrocodone-Acetaminophen 5-325 MG 02/25/2020 12:00:00 AM EST 1.0 {tablet_as_needed} active Hydrocodone-Acetaminophen 5-325 MG eCW1 ([facility]) Acetaminophen 325 MG / Hydrocodone Brielle trate 5 MG Oral Tablet Hydrocodone- Acetaminophen 5-325 MG Hydrocodone-Acetaminophen 5-325 MG 02/25/2020 12:00:00 AM EST 1.0 {tablet_as_needed} active Hydrocodone-Acetaminophen 5-325 MG eCW1 ([facility]) Acetaminophen 325 MG / Hydrocodone Brielle trate 5 MG Oral Tablet Hydrocodone- Acetaminophen 5-325 MG Hydrocodone-Acetaminophen 5-325 MG 02/25/2020 12:00:00 AM EST 1.0 {tablet_as_needed} active Hydrocodone-Acetaminophen 5-325 MG eCW1 ([facility]) Acetaminophen 325 MG / Hydrocodone Brielle trate 5 MG Oral Tablet Hydrocodone- Acetaminophen 5-325 MG Hydrocodone-Acetaminophen 5-325 MG 02/25/2020 12:00:00 AM EST 1.0 {tablet_as_needed} active Hydrocodone-Acetaminophen 5-325 MG eCW1 ([facility]) Acetaminophen 325 MG / Hydrocodone Breille trate 5 MG Oral Tablet Hydrocodone- Acetaminophen 5-325 MG Hydrocodone-Acetaminophen 5-325 MG 02/25/2020 12:00:00 AM EST 1.0 {tablet_as_needed} active Hydrocodone-Acetaminophen 5-325 MG eCW1 ([facility]) Acetaminophen 325 MG / Hydrocodone Brielle trate 5 MG Oral Tablet Hydrocodone- Acetaminophen 5-325 MG Hydrocodone-Acetaminophen 5-325 MG 02/25/2020 12:00:00 AM EST 1.0 {tablet_as_needed} active Hydrocodone-Acetaminophen 5-325 MG eCW1 ([facility]) Acetaminophen 325 MG / Hydrocodone Brielle trate 5 MG Oral Tablet Hydrocodone- Acetaminophen 5-325 MG Hydrocodone-Acetaminophen 5-325 MG 02/25/2020 12:00:00 AM EST 1.0 {tablet_as_needed} active Hydrocodone-Acetaminophen 5-325 MG eCW1 ([facility]) Acetaminophen 325 MG / Hydrocodone Brielle trate 5 MG Oral Tablet Hydrocodone- Acetaminophen 5-325 MG Hydrocodone-Acetaminophen 5-325 MG 02/25/2020 12:00:00 AM EST 1.0 {tablet_as_needed} active Hydrocodone-Acetaminophen 5-325 MG eCW1 ([facility]) Acetaminophen 325 MG / Hydrocodone Brielle trate 5 MG Oral Tablet Hydrocodone- Acetaminophen 5-325 MG Hydrocodone-Acetaminophen 5-325 MG 02/25/2020 12:00:00 AM EST 1.0 {tablet_as_needed} active Hydrocodone-Acetaminophen 5-325 MG eCW1 ([facility]) Acetaminophen 325 MG / Hydrocodone Brielle trate 5 MG Oral Tablet Hydrocodone- Acetaminophen 5-325 MG Hydrocodone-Acetaminophen 5-325 MG 02/25/2020 12:00:00 AM EST 1.0 {tablet_as_needed} active Hydrocodone-Acetaminophen 5-325 MG eCW1 ([facility]) torsemide 20 MG Oral Tablet Torsemide 20 MG Torsemide 20 MG 02/24/2020 12:00:00 AM EST active Torsemide 20 MG e CW1 ([facility]) torsemide 20 MG Oral Tablet Torsemide 20 MG Torsemide 20 MG 02/24/2020 12:00:00 AM EST active Torsemide 20 MG e CW1 ([facility]) torsemide 10 MG Oral Tablet Torsemide 10 MG Torsemide 10 MG 02/24/2020 12:00:00 AM EST active Torsemide 10 MG e CW1 ([facility]) torsemide 10 MG Oral Tablet Torsemide 10 MG Torsemide 10 MG 02/24/2020 12:00:00 AM EST active Torsemide 10 MG e CW1 ([facility]) torsemide 20 MG Oral Tablet Torsemide 20 MG Torsemide 20 MG 02/24/2020 12:00:00 AM EST active Torsemide 20 MG e CW1 ([facility]) torsemide 20 MG Oral Tablet Torsemide 20 MG Torsemide 20 MG 02/24/2020 12:00:00 AM EST active Torsemide 20 MG e CW1 ([facility]) torsemide 10 MG Oral Tablet Torsemide 10 MG Torsemide 10 MG 02/24/2020 12:00:00 AM EST active Torsemide 10 MG e CW1 ([facility]) torsemide 10 MG Oral Tablet Torsemide 10 MG Torsemide 10 MG 02/24/2020 12:00:00 AM EST active Torsemide 10 MG e CW1 ([facility]) torsemide 20 MG Oral Tablet Torsemide 20 MG Torsemide 20 MG 02/24/2020 12:00:00 AM EST active Torsemide 20 MG e CW1 ([facility]) torsemide 20 MG Oral Tablet Torsemide 20 MG Torsemide 20 MG 02/24/2020 12:00:00 AM EST active Torsemide 20 MG e CW1 ([facility]) torsemide 10 MG Oral Tablet Torsemide 10 MG Torsemide 10 MG 02/24/2020 12:00:00 AM EST active Torsemide 10 MG e CW1 ([facility]) torsemide 10 MG Oral Tablet Torsemide 10 MG Torsemide 10 MG 02/24/2020 12:00:00 AM EST active Torsemide 10 MG e CW1 ([facility]) torsemide 10 MG Oral Tablet Torsemide 10 MG Torsemide 10 MG 02/24/2020 12:00:00 AM EST active Torsemide 10 MG e CW1 ([facility]) torsemide 20 MG Oral Tablet Torsemide 20 MG Torsemide 20 MG 02/24/2020 12:00:00 AM EST active Torsemide 20 MG e CW1 ([facility]) torsemide 10 MG Oral Tablet Torsemide 10 MG Torsemide 10 MG 02/24/2020 12:00:00 AM EST active Torsemide 10 MG e CW1 ([facility]) torsemide 10 MG Oral Tablet Torsemide 10 MG Torsemide 10 MG 02/24/2020 12:00:00 AM EST active Torsemide 10 MG e CW1 ([facility]) torsemide 10 MG Oral Tablet Torsemide 10 MG Torsemide 10 MG 02/24/2020 12:00:00 AM EST active Torsemide 10 MG e CW1 ([facility]) torsemide 10 MG Oral Tablet Torsemide 10 MG Torsemide 10 MG 02/24/2020 12:00:00 AM EST active Torsemide 10 MG e CW1 ([facility]) torsemide 10 MG Oral Tablet Torsemide 10 MG Torsemide 10 MG 02/24/2020 12:00:00 AM EST active Torsemide 10 MG e CW1 ([facility]) torsemide 20 MG Oral Tablet Torsemide 20 MG Torsemide 20 MG 02/24/2020 12:00:00 AM EST active Torsemide 20 MG e CW1 ([facility]) torsemide 20 MG Oral Tablet Torsemide 20 MG Torsemide 20 MG 02/24/2020 12:00:00 AM EST active Torsemide 20 MG e CW1 ([facility]) torsemide 20 MG Oral Tablet Torsemide 20 MG Torsemide 20 MG 02/24/2020 12:00:00 AM EST active Torsemide 20 MG e CW1 ([facility]) torsemide 10 MG Oral Tablet Torsemide 10 MG Torsemide 10 MG 02/24/2020 12:00:00 AM EST active Torsemide 10 MG e CW1 ([facility]) torsemide 20 MG Oral Tablet Torsemide 20 MG Torsemide 20 MG 02/24/2020 12:00:00 AM EST active Torsemide 20 MG e CW1 ([facility]) torsemide 20 MG Oral Tablet Torsemide 20 MG Torsemide 20 MG 02/24/2020 12:00:00 AM EST active Torsemide 20 MG e CW1 ([facility]) torsemide 20 MG Oral Tablet Torsemide 20 MG Torsemide 20 MG 02/24/2020 12:00:00 AM EST active Torsemide 20 MG e CW1 ([facility]) torsemide 20 MG Oral Tablet Torsemide 20 MG Torsemide 20 MG 02/24/2020 12:00:00 AM EST active Torsemide 20 MG e CW1 ([facility]) torsemide 10 MG Oral Tablet Torsemide 10 MG Torsemide 10 MG 02/24/2020 12:00:00 AM EST active Torsemide 10 MG e CW1 ([facility]) torsemide 20 MG Oral Tablet Torsemide 20 MG Torsemide 20 MG 02/24/2020 12:00:00 AM EST active Torsemide 20 MG e CW1 ([facility]) torsemide 20 MG Oral Tablet Torsemide 20 MG Torsemide 20 MG 02/24/2020 12:00:00 AM EST active Torsemide 20 MG e CW1 ([facility]) torsemide 10 MG Oral Tablet Torsemide 10 MG Torsemide 10 MG 02/24/2020 12:00:00 AM EST active Torsemide 10 MG e CW1 ([facility]) torsemide 20 MG Oral Tablet Torsemide 20 MG Torsemide 20 MG 02/24/2020 12:00:00 AM EST active Torsemide 20 MG e CW1 ([facility]) torsemide 10 MG Oral Tablet Torsemide 10 MG Torsemide 10 MG 02/24/2020 12:00:00 AM EST active Torsemide 10 MG e CW1 ([facility]) torsemide 20 MG Oral Tablet Torsemide 20 MG Torsemide 20 MG 02/24/2020 12:00:00 AM EST active Torsemide 20 MG e CW1 ([facility]) torsemide 20 MG Oral Tablet Torsemide 20 MG Torsemide 20 MG 02/24/2020 12:00:00 AM EST active Torsemide 20 MG e CW1 ([facility]) torsemide 10 MG Oral Tablet Torsemide 10 MG Torsemide 10 MG 02/24/2020 12:00:00 AM EST active Torsemide 10 MG e CW1 ([facility]) torsemide 20 MG Oral Tablet Torsemide 20 MG Torsemide 20 MG 02/24/2020 12:00:00 AM EST active Torsemide 20 MG e CW1 ([facility]) torsemide 10 MG Oral Tablet Torsemide 10 MG Torsemide 10 MG 02/24/2020 12:00:00 AM EST active Torsemide 10 MG e CW1 ([facility]) torsemide 10 MG Oral Tablet Torsemide 10 MG Torsemide 10 MG 02/24/2020 12:00:00 AM EST active Torsemide 10 MG e CW1 ([facility]) torsemide 10 MG Oral Tablet Torsemide 10 MG Torsemide 10 MG 02/24/2020 12:00:00 AM EST active Torsemide 10 MG e CW1 ([facility]) torsemide 10 MG Oral Tablet Torsemide 10 MG Torsemide 10 MG 02/24/2020 12:00:00 AM EST active Torsemide 10 MG e CW1 ([facility]) torsemide 10 MG Oral Tablet Torsemide 10 MG Torsemide 10 MG 02/24/2020 12:00:00 AM EST active Torsemide 10 MG e CW1 ([facility]) torsemide 10 MG Oral Tablet Torsemide 10 MG Torsemide 10 MG 02/24/2020 12:00:00 AM EST active Torsemide 10 MG e CW1 ([facility]) torsemide 10 MG Oral Tablet Torsemide 10 MG Torsemide 10 MG 02/24/2020 12:00:00 AM EST active Torsemide 10 MG e CW1 ([facility]) torsemide 20 MG Oral Tablet Torsemide 20 MG Torsemide 20 MG 02/24/2020 12:00:00 AM EST active Torsemide 20 MG e CW1 ([facility]) torsemide 10 MG Oral Tablet Torsemide 10 MG Torsemide 10 MG 02/24/2020 12:00:00 AM EST active Torsemide 10 MG e CW1 ([facility]) torsemide 20 MG Oral Tablet Torsemide 20 MG Torsemide 20 MG 02/24/2020 12:00:00 AM EST active Torsemide 20 MG e CW1 ([facility]) torsemide 20 MG Oral Tablet Torsemide 20 MG Torsemide 20 MG 02/24/2020 12:00:00 AM EST active Torsemide 20 MG e CW1 ([facility]) torsemide 10 MG Oral Tablet Torsemide 10 MG Torsemide 10 MG 02/24/2020 12:00:00 AM EST active Torsemide 10 MG e CW1 ([facility]) torsemide 20 MG Oral Tablet Torsemide 20 MG Torsemide 20 MG 02/24/2020 12:00:00 AM EST active Torsemide 20 MG e CW1 ([facility]) torsemide 10 MG Oral Tablet Torsemide 10 MG Torsemide 10 MG 02/24/2020 12:00:00 AM EST active Torsemide 10 MG e CW1 ([facility]) torsemide 10 MG Oral Tablet Torsemide 10 MG Torsemide 10 MG 02/24/2020 12:00:00 AM EST active Torsemide 10 MG e CW1 ([facility]) torsemide 20 MG Oral Tablet Torsemide 20 MG Torsemide 20 MG 02/24/2020 12:00:00 AM EST active Torsemide 20 MG e CW1 ([facility]) torsemide 10 MG Oral Tablet Torsemide 10 MG Torsemide 10 MG 02/24/2020 12:00:00 AM EST active Torsemide 10 MG e CW1 ([facility]) torsemide 20 MG Oral Tablet Torsemide 20 MG Torsemide 20 MG 02/24/2020 12:00:00 AM EST active Torsemide 20 MG e CW1 ([facility]) torsemide 20 MG Oral Tablet Torsemide 20 MG Torsemide 20 MG 02/24/2020 12:00:00 AM EST active Torsemide 20 MG e CW1 ([facility]) torsemide 10 MG Oral Tablet Torsemide 10 MG Torsemide 10 MG 02/24/2020 12:00:00 AM EST active Torsemide 10 MG e CW1 ([facility]) torsemide 20 MG Oral Tablet Torsemide 20 MG Torsemide 20 MG 02/24/2020 12:00:00 AM EST active Torsemide 20 MG e CW1 ([facility]) torsemide 20 MG Oral Tablet Torsemide 20 MG Torsemide 20 MG 02/24/2020 12:00:00 AM EST active Torsemide 20 MG e CW1 ([facility]) torsemide 20 MG Oral Tablet Torsemide 20 MG Torsemide 20 MG 02/24/2020 12:00:00 AM EST active Torsemide 20 MG e CW1 ([facility]) Walker - Walker - 02/15/2020 12:00:00 AM EST activ e Walker - eCW1 ([facility]) Walker - Walker - 02/15/2020 12:00:00 AM EST activ e Walker - eCW1 ([facility]) Walker - Walker - 02/15/2020 12:00:00 AM EST activ e Walker - eCW1 ([facility]) Walker - Walker - 02/15/2020 12:00:00 AM EST activ e Walker - eCW1 ([facility]) Walker - Walker - 02/15/2020 12:00:00 AM EST activ e Walker - eCW1 ([facility]) Walker - Walker - 02/15/2020 12:00:00 AM EST activ e Walker - eCW1 ([facility]) Walker - Walker - 02/15/2020 12:00:00 AM EST activ e Walker - eCW1 ([facility]) Walker - Walker - 02/15/2020 12:00:00 AM EST activ e Walker - eCW1 ([facility]) Walker - Walker - 02/15/2020 12:00:00 AM EST activ e Walker - eCW1 ([facility]) Walker - Walker - 02/15/2020 12:00:00 AM EST activ e Walker - eCW1 ([facility]) Walker - Walker - 02/15/2020 12:00:00 AM EST activ e Walker - eCW1 ([facility]) Walker - Walker - 02/15/2020 12:00:00 AM EST activ e Walker - eCW1 ([facility]) Walker - Walker - 02/15/2020 12:00:00 AM EST activ e Walker - eCW1 ([facility]) Walker - Walker - 02/15/2020 12:00:00 AM EST activ e Walker - eCW1 ([facility]) Walker - Walker - 02/15/2020 12:00:00 AM EST activ e Walker - eCW1 ([facility]) Walker - Walker - 02/15/2020 12:00:00 AM EST activ e Walker - eCW1 ([facility]) Walker - Walker - 02/15/2020 12:00:00 AM EST activ e Walker - eCW1 ([facility]) Walker - Walker - 02/15/2020 12:00:00 AM EST activ e Walker - eCW1 ([facility]) Walker - Walker - 02/15/2020 12:00:00 AM EST activ e Walker - eCW1 ([facility]) Walker - Walker - 02/15/2020 12:00:00 AM EST activ e Walker - eCW1 ([facility]) Walker - Walker - 02/15/2020 12:00:00 AM EST activ e Walker - eCW1 ([facility]) Walker - Walker - 02/15/2020 12:00:00 AM EST activ e Walker - eCW1 ([facility]) Walker - Walker - 02/15/2020 12:00:00 AM EST activ e Walker - eCW1 ([facility]) Walker - Walker - 02/15/2020 12:00:00 AM EST activ e Walker - eCW1 ([facility]) Walker - Walker - 02/15/2020 12:00:00 AM EST activ e Walker - eCW1 ([facility]) Walker - Walker - 02/15/2020 12:00:00 AM EST activ e Walker - eCW1 ([facility]) Walker - Walker - 02/15/2020 12:00:00 AM EST activ e Walker - eCW1 ([facility]) Walker - Walker - 02/15/2020 12:00:00 AM EST activ e Walker - eCW1 ([facility]) Walker - Walker - 02/15/2020 12:00:00 AM EST activ e Walker - eCW1 ([facility]) Walker - Walker - 02/15/2020 12:00:00 AM EST activ e Walker - eCW1 ([facility]) Walker - Walker - 02/15/2020 12:00:00 AM EST activ e Walker - eCW1 ([facility]) Walker - Walker - 02/15/2020 12:00:00 AM EST activ e Walker - eCW1 ([facility]) Walker - Walker - 02/15/2020 12:00:00 AM EST activ e Walker - eCW1 ([facility]) Walker - Walker - 02/15/2020 12:00:00 AM EST activ e Walker - eCW1 ([facility]) Walker - Walker - 02/15/2020 12:00:00 AM EST activ e Walker - eCW1 ([facility]) Walker - Walker - 02/15/2020 12:00:00 AM EST activ e Walker - eCW1 ([facility]) Walker - Walker - 02/15/2020 12:00:00 AM EST activ e Walker - eCW1 ([facility]) Walker - Walker - 02/15/2020 12:00:00 AM EST activ e Walker - eCW1 ([facility]) Walker - Walker - 02/15/2020 12:00:00 AM EST activ e Walker - eCW1 ([facility]) Walker - Walker - 02/15/2020 12:00:00 AM EST activ e Walker - eCW1 ([facility]) Walker - Walker - 02/15/2020 12:00:00 AM EST activ e Walker - eCW1 ([facility]) Walker - Walker - 02/15/2020 12:00:00 AM EST activ e Walker - eCW1 ([facility]) Walker - Walker - 02/15/2020 12:00:00 AM EST activ e Walker - eCW1 ([facility]) Walker - Walker - 02/15/2020 12:00:00 AM EST activ e Walker - eCW1 ([facility]) Walker - Walker - 02/15/2020 12:00:00 AM EST activ e Walker - eCW1 ([facility]) Walker - Walker - 02/15/2020 12:00:00 AM EST activ e Walker - eCW1 ([facility]) Walker - Walker - 02/15/2020 12:00:00 AM EST activ e Walker - eCW1 ([facility]) Walker - Walker - 02/15/2020 12:00:00 AM EST activ e Walker - eCW1 ([facility]) Walker - Walker - 02/15/2020 12:00:00 AM EST activ e Walker - eCW1 ([facility]) Walker - Walker - 02/15/2020 12:00:00 AM EST activ e Walker - eCW1 ([facility]) Walker - Walker - 02/15/2020 12:00:00 AM EST activ e Walker - eCW1 ([facility]) Walker - Walker - 02/15/2020 12:00:00 AM EST activ e Walker - eCW1 ([facility]) Walker - Walker - 02/15/2020 12:00:00 AM EST activ e Walker - eCW1 ([facility]) Walker - Walker - 02/15/2020 12:00:00 AM EST activ e Walker - eCW1 ([facility]) Walker - Walker - 02/15/2020 12:00:00 AM EST activ e Walker - eCW1 ([facility]) Walker - Walker - 02/15/2020 12:00:00 AM EST activ e Walker - eCW1 ([facility]) Walker - Walker - 02/15/2020 12:00:00 AM EST activ e Walker - eCW1 ([facility]) Walker - Walker - 02/15/2020 12:00:00 AM EST activ e Walker - eCW1 ([facility]) Walker - Walker - 02/15/2020 12:00:00 AM EST activ e Walker - eCW1 ([facility]) Walker - Walker - 02/15/2020 12:00:00 AM EST activ e Walker - eCW1 ([facility]) Walker - Walker - 02/15/2020 12:00:00 AM EST activ e Walker - eCW1 ([facility]) Walker - Walker - 02/15/2020 12:00:00 AM EST activ e Walker - eCW1 ([facility]) Walker - Walker - 02/15/2020 12:00:00 AM EST activ e Walker - eCW1 ([facility]) Walker - Walker - 02/15/2020 12:00:00 AM EST activ e Walker - eCW1 ([facility]) Test Strips - UNK 02/09/2020 12:00:00 AM EST acti ve Test Strips - eCW1 ([facility]) Test Strips - UNK 02/09/2020 12:00:00 AM EST acti ve Test Strips - eCW1 ([facility]) Test Strips - UNK 02/09/2020 12:00:00 AM EST acti ve Test Strips - eCW1 ([facility]) Test Strips - UNK 02/09/2020 12:00:00 AM EST acti ve Test Strips - eCW1 ([facility]) Test Strips - UNK 02/09/2020 12:00:00 AM EST acti ve Test Strips - eCW1 ([facility]) Test Strips - UNK 02/09/2020 12:00:00 AM EST acti ve Test Strips - eCW1 ([facility]) Test Strips - UNK 02/09/2020 12:00:00 AM EST acti ve Test Strips - eCW1 ([facility]) Test Strips - UNK 02/09/2020 12:00:00 AM EST acti ve Test Strips - eCW1 ([facility]) Test Strips - UNK 02/09/2020 12:00:00 AM EST acti ve Test Strips - eCW1 ([facility]) Test Strips - UNK 02/09/2020 12:00:00 AM EST acti ve Test Strips - eCW1 ([facility]) Test Strips - UNK 02/09/2020 12:00:00 AM EST acti ve Test Strips - eCW1 ([facility]) Test Strips - UNK 02/09/2020 12:00:00 AM EST acti ve Test Strips - eCW1 ([facility]) Test Strips - K 02/09/2020 12:00:00 AM EST acti ve Test Strips - eCW1 ([facility]) Test Strips - K 02/09/2020 12:00:00 AM EST acti ve Test Strips - eCW1 ([facility]) Test Strips - K 02/09/2020 12:00:00 AM EST acti ve Test Strips - eCW1 ([facility]) Test Strips - K 02/09/2020 12:00:00 AM EST acti ve Test Strips - eCW1 ([facility]) Test Strips - K 02/09/2020 12:00:00 AM EST acti ve Test Strips - eCW1 ([facility]) Test Strips - K 02/09/2020 12:00:00 AM EST acti ve Test Strips - eCW1 ([facility]) Test Strips - K 02/09/2020 12:00:00 AM EST acti ve Test Strips - eCW1 ([facility]) Test Strips - K 02/09/2020 12:00:00 AM EST acti ve Test Strips - eCW1 ([facility]) Test Strips - K 02/09/2020 12:00:00 AM EST acti ve Test Strips - eCW1 ([facility]) Test Strips - K 02/09/2020 12:00:00 AM EST acti ve Test Strips - eCW1 ([facility]) Test Strips - UNK 02/09/2020 12:00:00 AM EST acti ve Test Strips - eCW1 ([facility]) Test Strips - K 02/09/2020 12:00:00 AM EST acti ve Test Strips - eCW1 ([facility]) Test Strips - K 02/09/2020 12:00:00 AM EST acti ve Test Strips - eCW1 ([facility]) Test Strips - K 02/09/2020 12:00:00 AM EST acti ve Test Strips - eCW1 ([facility]) Test Strips - K 02/09/2020 12:00:00 AM EST acti ve Test Strips - eCW1 ([facility]) Test Strips - K 02/09/2020 12:00:00 AM EST acti ve Test Strips - eCW1 ([facility]) Test Strips - K 02/09/2020 12:00:00 AM EST acti ve Test Strips - [email or web address] ([facility]) Test Strips - K 02/09/2020 12:00:00 AM EST acti ve Test Strips - [email or web address] ([facility]) Test Strips - K 02/09/2020 12:00:00 AM EST acti ve Test Strips - [email or web address] ([facility]) Test Strips - K 02/09/2020 12:00:00 AM EST acti ve Test Strips - [email or web address] ([facility]) Test Strips - K 02/09/2020 12:00:00 AM EST acti ve Test Strips - [email or web address] [facility] [facility] Test Strips - K 02/09/2020 12:00:00 AM EST acti ve Test Strips - eCW1 ([facility]) Test Strips - K 02/09/2020 12:00:00 AM EST acti ve Test Strips - eCW1 ([facility]) Test Strips - K 02/09/2020 12:00:00 AM EST acti ve Test Strips - eCW1 ([facility]) Test Strips - K 02/09/2020 12:00:00 AM EST acti ve Test Strips - eCW1 ([facility]) Test Strips - UNK 02/09/2020 12:00:00 AM EST acti ve Test Strips - eCW1 ([facility]) Test Strips - UNK 02/09/2020 12:00:00 AM EST acti ve Test Strips - eCW1 ([facility]) Test Strips - UNK 02/09/2020 12:00:00 AM EST acti ve Test Strips - eCW1 ([facility]) Test Strips - UNK 02/09/2020 12:00:00 AM EST acti ve Test Strips - eCW1 ([facility]) Test Strips - K 02/09/2020 12:00:00 AM EST acti ve Test Strips - eCW1 ([facility]) Test Strips - K 02/09/2020 12:00:00 AM EST acti ve Test Strips - eCW1 ([facility]) Test Strips - K 02/09/2020 12:00:00 AM EST acti ve Test Strips - eCW1 ([facility]) Test Strips - K 02/09/2020 12:00:00 AM EST acti ve Test Strips - eCW1 ([facility]) Test Strips - K 02/09/2020 12:00:00 AM EST acti ve Test Strips - eCW1 ([facility]) Test Strips - K 02/09/2020 12:00:00 AM EST acti ve Test Strips - eCW1 ([facility]) Test Strips - K 02/09/2020 12:00:00 AM EST acti ve Test Strips - eCW1 ([facility]) Test Strips - K 02/09/2020 12:00:00 AM EST acti ve Test Strips - eCW1 ([facility]) Test Strips - K 02/09/2020 12:00:00 AM EST acti ve Test Strips - eCW1 ([facility]) Test Strips - UNK 02/09/2020 12:00:00 AM EST acti ve Test Strips - eCW1 ([facility]) Test Strips - K 02/09/2020 12:00:00 AM EST acti ve Test Strips - eCW1 ([facility]) Test Strips - UNK 02/09/2020 12:00:00 AM EST acti ve Test Strips - eCW1 ([facility]) Test Strips - UNK 02/09/2020 12:00:00 AM EST acti ve Test Strips - eCW1 ([facility]) Test Strips - UNK 02/09/2020 12:00:00 AM EST acti ve Test Strips - eCW1 ([facility]) Test Strips - UNK 02/09/2020 12:00:00 AM EST acti ve Test Strips - eCW1 ([facility]) Test Strips - UNK 02/09/2020 12:00:00 AM EST acti ve Test Strips - eCW1 ([facility]) Test Strips - UNK 02/09/2020 12:00:00 AM EST acti ve Test Strips - eCW1 ([facility]) Test Strips - K 02/09/2020 12:00:00 AM EST acti ve Test Strips - eCW1 ([facility]) Test Strips - K 02/09/2020 12:00:00 AM EST acti ve Test Strips - eCW1 ([facility]) Test Strips - K 02/09/2020 12:00:00 AM EST acti ve Test Strips - eCW1 ([facility]) POLYETHYLENE GLYCOL 3350 142 MG/ML Oral Solution [Miralax] M iralax 02/09/2020 12:00:00 AM EST completed MEDENT ([facility]) magnesium citrate 58.2 MG/ML Oral Solution Magnesium Citrate 02/09/2020 12:00:00 AM EST completed MEDENT ([facility]) Test Strips - UNK 02/09/2020 12:00:00 AM EST acti ve Test Strips - eCW1 ([facility]) Test Strips - UNK 02/09/2020 12:00:00 AM EST acti ve Test Strips - eCW1 ([facility]) Test Strips - UNK 02/09/2020 12:00:00 AM EST acti ve Test Strips - eCW1 ([facility]) Test Strips - UNK 02/09/2020 12:00:00 AM EST acti ve Test Strips - eCW1 ([facility]) Test Strips - UNK 02/09/2020 12:00:00 AM EST acti ve Test Strips - eCW1 ([facility]) Test Strips - UNK 02/09/2020 12:00:00 AM EST acti ve Test Strips - eCW1 ([facility]) 3 ML insulin detemir 100 UNT/ML Pen Inje ctor [Levemir] Levemir FlexTouch 100 UNIT/ML Levemir FlexTouch 100 UNIT/ML 02/03/2020 12:00:00 AM EST active Levemir FlexTouch 100 UNIT/ML eC W1 ([facility]) Amlodipine 5 MG Oral Tablet AmLODIPine Besylate 5 MG AmLODIP ine Besylate 5 MG 02/03/2020 12:00:00 AM EST 1.0 {tablet} active AmLODIPine Besylate 5 MG eCW1 ([facility]) 3 ML insulin detemir 100 UNT/ML Pen Inje ctor [Levemir] Levemir FlexTouch 100 UNIT/ML Levemir FlexTouch 100 UNIT/ML 02/03/2020 12:00:00 AM EST active Levemir FlexTouch 100 UNIT/ML eC W1 ([facility]) 3 ML insulin detemir 100 UNT/ML Pen Inje ctor [Levemir] Levemir FlexTouch 100 UNIT/ML Levemir FlexTouch 100 UNIT/ML 02/03/2020 12:00:00 AM EST active Levemir FlexTouch 100 UNIT/ML eC W1 ([facility]) Acetaminophen 325 MG Oral Tablet Acetaminophen 325 MG 2019 12:00:00 AM EST 2.0 {tablets_as_needed} active Acetaminophen 325 MG eCW1 ([facility]) 3 ML insulin detemir 100 UNT/ML Pen Inje ctor [Levemir] Levemir FlexTouch 100 UNIT/ML Levemir FlexTouch 100 UNIT/ML 02/03/2020 12:00:00 AM EST active Levemir FlexTouch 100 UNIT/ML eC W1 ([facility]) 3 ML insulin detemir 100 UNT/ML Pen Inje ctor [Levemir] Levemir FlexTouch 100 UNIT/ML Levemir FlexTouch 100 UNIT/ML 02/03/2020 12:00:00 AM EST active Levemir FlexTouch 100 UNIT/ML eC W1 ([facility]) 3 ML insulin detemir 100 UNT/ML Pen Inje ctor [Levemir] Levemir FlexTouch 100 UNIT/ML Levemir FlexTouch 100 UNIT/ML 02/03/2020 12:00:00 AM EST active Levemir FlexTouch 100 UNIT/ML eC W1 ([facility]) Amlodipine 5 MG Oral Tablet AmLODIPine Besylate 5 MG AmLODIP ine Besylate 5 MG 02/03/2020 12:00:00 AM EST 1.0 {tablet} active AmLODIPine Besylate 5 MG eCW1 ([facility]) 3 ML insulin detemir 100 UNT/ML Pen Inje ctor [Levemir] Levemir FlexTouch 100 UNIT/ML Levemir FlexTouch 100 UNIT/ML 02/03/2020 12:00:00 AM EST active Levemir FlexTouch 100 UNIT/ML eC W1 ([facility]) Amlodipine 5 MG Oral Tablet AmLODIPine Besylate 5 MG AmLODIP ine Besylate 5 MG 02/03/2020 12:00:00 AM EST 1.0 {tablet} active AmLODIPine Besylate 5 MG eCW1 ([facility]) Acetaminophen 325 MG Oral Tablet Acetaminophen 325 MG 2019 12:00:00 AM EST 2.0 {tablets_as_needed} active Acetaminophen 325 MG eCW1 ([facility]) Acetaminophen 325 MG Oral Tablet Acetaminophen 325 MG 2019 12:00:00 AM EST 2.0 {tablets_as_needed} active Acetaminophen 325 MG eCW1 ([facility]) 3 ML insulin detemir 100 UNT/ML Pen Inje ctor [Levemir] Levemir FlexTouch 100 UNIT/ML Levemir FlexTouch 100 UNIT/ML 02/03/2020 12:00:00 AM EST active Levemir FlexTouch 100 UNIT/ML eC W1 ([facility]) 3 ML insulin detemir 100 UNT/ML Pen Inje ctor [Levemir] Levemir FlexTouch 100 UNIT/ML Levemir FlexTouch 100 UNIT/ML 02/03/2020 12:00:00 AM EST active Levemir FlexTouch 100 UNIT/ML eC W1 ([facility]) Amlodipine 5 MG Oral Tablet AmLODIPine Besylate 5 MG AmLODIP ine Besylate 5 MG 02/03/2020 12:00:00 AM EST 1.0 {tablet} active AmLODIPine Besylate 5 MG eCW1 ([facility]) 3 ML insulin detemir 100 UNT/ML Pen Inje ctor [Levemir] Levemir FlexTouch 100 UNIT/ML Levemir FlexTouch 100 UNIT/ML 02/03/2020 12:00:00 AM EST active Levemir FlexTouch 100 UNIT/ML eC W1 ([facility]) Acetaminophen 325 MG Oral Tablet Acetaminophen 325 MG 2019 12:00:00 AM EST 2.0 {tablets_as_needed} active Acetaminophen 325 MG eCW1 ([facility]) 3 ML insulin detemir 100 UNT/ML Pen Inje ctor [Levemir] Levemir FlexTouch 100 UNIT/ML Levemir FlexTouch 100 UNIT/ML 02/03/2020 12:00:00 AM EST active Levemir FlexTouch 100 UNIT/ML eC W1 ([facility]) 3 ML insulin detemir 100 UNT/ML Pen Inje ctor [Levemir] Levemir FlexTouch 100 UNIT/ML Levemir FlexTouch 100 UNIT/ML 02/03/2020 12:00:00 AM EST active Levemir FlexTouch 100 UNIT/ML eC W1 ([facility]) 3 ML insulin detemir 100 UNT/ML Pen Inje ctor [Levemir] Levemir FlexTouch 100 UNIT/ML Levemir FlexTouch 100 UNIT/ML 02/03/2020 12:00:00 AM EST active Levemir FlexTouch 100 UNIT/ML eC W1 ([facility]) 3 ML insulin detemir 100 UNT/ML Pen Inje ctor [Levemir] Levemir FlexTouch 100 UNIT/ML Levemir FlexTouch 100 UNIT/ML 02/03/2020 12:00:00 AM EST active Levemir FlexTouch 100 UNIT/ML eC W1 ([facility]) 3 ML insulin detemir 100 UNT/ML Pen Inje ctor [Levemir] Levemir FlexTouch 100 UNIT/ML Levemir FlexTouch 100 UNIT/ML 02/03/2020 12:00:00 AM EST active Levemir FlexTouch 100 UNIT/ML eC W1 ([facility]) 3 ML insulin detemir 100 UNT/ML Pen Inje ctor [Levemir] Levemir FlexTouch 100 UNIT/ML Levemir FlexTouch 100 UNIT/ML 02/03/2020 12:00:00 AM EST active Levemir FlexTouch 100 UNIT/ML eC W1 ([facility]) 3 ML insulin detemir 100 UNT/ML Pen Inje ctor [Levemir] Levemir FlexTouch 100 UNIT/ML Levemir FlexTouch 100 UNIT/ML 02/03/2020 12:00:00 AM EST active Levemir FlexTouch 100 UNIT/ML eC W1 ([facility]) Amlodipine 5 MG Oral Tablet AmLODIPine Besylate 5 MG AmLODIP ine Besylate 5 MG 02/03/2020 12:00:00 AM EST 1.0 {tablet} active AmLODIPine Besylate 5 MG eCW1 ([facility]) Amlodipine 5 MG Oral Tablet AmLODIPine Besylate 5 MG AmLODIP ine Besylate 5 MG 02/03/2020 12:00:00 AM EST 1.0 {tablet} active AmLODIPine Besylate 5 MG eCW1 ([facility]) 3 ML insulin detemir 100 UNT/ML Pen Inje ctor [Levemir] Levemir FlexTouch 100 UNIT/ML Levemir FlexTouch 100 UNIT/ML 02/03/2020 12:00:00 AM EST active Levemir FlexTouch 100 UNIT/ML eC W1 ([facility]) 3 ML insulin detemir 100 UNT/ML Pen Inje ctor [Levemir] Levemir FlexTouch 100 UNIT/ML Levemir FlexTouch 100 UNIT/ML 02/03/2020 12:00:00 AM EST active Levemir FlexTouch 100 UNIT/ML eC W1 ([facility]) 3 ML insulin detemir 100 UNT/ML Pen Inje ctor [Levemir] Levemir FlexTouch 100 UNIT/ML Levemir FlexTouch 100 UNIT/ML 02/03/2020 12:00:00 AM EST active Levemir FlexTouch 100 UNIT/ML eC W1 ([facility]) Acetaminophen 325 MG Oral Tablet Acetaminophen 325 MG 2019 12:00:00 AM EST 2.0 {tablets_as_needed} active Acetaminophen 325 MG eCW1 ([facility]) Acetaminophen 325 MG Oral Tablet Acetaminophen 325 MG 2019 12:00:00 AM EST 2.0 {tablets_as_needed} active Acetaminophen 325 MG eCW1 ([facility]) Acetaminophen 325 MG Oral Tablet Acetaminophen 325 MG 2019 12:00:00 AM EST 2.0 {tablets_as_needed} active Acetaminophen 325 MG eCW1 ([facility]) Acetaminophen 325 MG Oral Tablet Acetaminophen 325 MG 2019 12:00:00 AM EST 2.0 {tablets_as_needed} active Acetaminophen 325 MG eCW1 ([facility]) 3 ML insulin detemir 100 UNT/ML Pen Inje ctor [Levemir] Levemir FlexTouch 100 UNIT/ML Levemir FlexTouch 100 UNIT/ML 02/03/2020 12:00:00 AM EST active Levemir FlexTouch 100 UNIT/ML eC W1 ([facility]) 3 ML insulin detemir 100 UNT/ML Pen Inje ctor [Levemir] Levemir FlexTouch 100 UNIT/ML Levemir FlexTouch 100 UNIT/ML 02/03/2020 12:00:00 AM EST active Levemir FlexTouch 100 UNIT/ML eC W1 ([facility]) 3 ML insulin detemir 100 UNT/ML Pen Inje ctor [Levemir] Levemir FlexTouch 100 UNIT/ML Levemir FlexTouch 100 UNIT/ML 02/03/2020 12:00:00 AM EST active Levemir FlexTouch 100 UNIT/ML eC W1 ([facility]) Acetaminophen 325 MG Oral Tablet Acetaminophen 325 MG 2019 12:00:00 AM EST 2.0 {tablets_as_needed} active Acetaminophen 325 MG eCW1 ([facility]) Acetaminophen 325 MG Oral Tablet Acetaminophen 325 MG 2019 12:00:00 AM EST 2.0 {tablets_as_needed} active Acetaminophen 325 MG eCW1 ([facility]) 3 ML insulin detemir 100 UNT/ML Pen Inje ctor [Levemir] Levemir FlexTouch 100 UNIT/ML Levemir FlexTouch 100 UNIT/ML 02/03/2020 12:00:00 AM EST active Levemir FlexTouch 100 UNIT/ML eC W1 ([facility]) Acetaminophen 325 MG Oral Tablet Acetaminophen 325 MG 2019 12:00:00 AM EST 2.0 {tablets_as_needed} active Acetaminophen 325 MG eCW1 ([facility]) Amlodipine 5 MG Oral Tablet AmLODIPine Besylate 5 MG AmLODIP ine Besylate 5 MG 02/03/2020 12:00:00 AM EST 1.0 {tablet} active AmLODIPine Besylate 5 MG eCW1 ([facility]) 3 ML insulin detemir 100 UNT/ML Pen Inje ctor [Levemir] Levemir FlexTouch 100 UNIT/ML Levemir FlexTouch 100 UNIT/ML 02/03/2020 12:00:00 AM EST active Levemir FlexTouch 100 UNIT/ML eC W1 ([facility]) 3 ML insulin detemir 100 UNT/ML Pen Inje ctor [Levemir] Levemir FlexTouch 100 UNIT/ML Levemir FlexTouch 100 UNIT/ML 02/03/2020 12:00:00 AM EST active Levemir FlexTouch 100 UNIT/ML eC W1 ([facility]) 3 ML insulin detemir 100 UNT/ML Pen Inje ctor [Levemir] Levemir FlexTouch 100 UNIT/ML Levemir FlexTouch 100 UNIT/ML 02/03/2020 12:00:00 AM EST active Levemir FlexTouch 100 UNIT/ML eC W1 ([facility]) 3 ML insulin detemir 100 UNT/ML Pen Inje ctor [Levemir] Levemir FlexTouch 100 UNIT/ML Levemir FlexTouch 100 UNIT/ML 02/03/2020 12:00:00 AM EST active Levemir FlexTouch 100 UNIT/ML eC W1 ([facility]) 3 ML insulin detemir 100 UNT/ML Pen Inje ctor [Levemir] Levemir FlexTouch 100 UNIT/ML Levemir FlexTouch 100 UNIT/ML 02/03/2020 12:00:00 AM EST active Levemir FlexTouch 100 UNIT/ML eC W1 ([facility]) Acetaminophen 325 MG Oral Tablet Acetaminophen 325 MG 2019 12:00:00 AM EST 2.0 {tablets_as_needed} active Acetaminophen 325 MG eCW1 ([facility]) Acetaminophen 325 MG Oral Tablet Acetaminophen 325 MG 2019 12:00:00 AM EST 2.0 {tablets_as_needed} active Acetaminophen 325 MG eCW1 ([facility]) Acetaminophen 325 MG Oral Tablet Acetaminophen 325 MG 2019 12:00:00 AM EST 2.0 {tablets_as_needed} active Acetaminophen 325 MG eCW1 ([facility]) 3 ML insulin detemir 100 UNT/ML Pen Inje ctor [Levemir] Levemir FlexTouch 100 UNIT/ML Levemir FlexTouch 100 UNIT/ML 02/03/2020 12:00:00 AM EST active Levemir FlexTouch 100 UNIT/ML eC W1 ([facility]) Acetaminophen 325 MG Oral Tablet Acetaminophen 325 MG 2019 12:00:00 AM EST 2.0 {tablets_as_needed} active Acetaminophen 325 MG eCW1 ([facility]) 3 ML insulin detemir 100 UNT/ML Pen Inje ctor [Levemir] Levemir FlexTouch 100 UNIT/ML Levemir FlexTouch 100 UNIT/ML 02/03/2020 12:00:00 AM EST active Levemir FlexTouch 100 UNIT/ML eC W1 ([facility]) Amlodipine 5 MG Oral Tablet AmLODIPine Besylate 5 MG AmLODIP ine Besylate 5 MG 02/03/2020 12:00:00 AM EST 1.0 {tablet} active AmLODIPine Besylate 5 MG eCW1 ([facility]) 3 ML insulin detemir 100 UNT/ML Pen Inje ctor [Levemir] Levemir FlexTouch 100 UNIT/ML Levemir FlexTouch 100 UNIT/ML 02/03/2020 12:00:00 AM EST active Levemir FlexTouch 100 UNIT/ML eC W1 ([facility]) 3 ML insulin detemir 100 UNT/ML Pen Inje ctor [Levemir] Levemir FlexTouch 100 UNIT/ML Levemir FlexTouch 100 UNIT/ML 02/03/2020 12:00:00 AM EST active Levemir FlexTouch 100 UNIT/ML eC W1 ([facility]) Amlodipine 5 MG Oral Tablet AmLODIPine Besylate 5 MG AmLODIP ine Besylate 5 MG 02/03/2020 12:00:00 AM EST 1.0 {tablet} active AmLODIPine Besylate 5 MG eCW1 ([facility]) 3 ML insulin detemir 100 UNT/ML Pen Inje ctor [Levemir] Levemir FlexTouch 100 UNIT/ML Levemir FlexTouch 100 UNIT/ML 02/03/2020 12:00:00 AM EST active Levemir FlexTouch 100 UNIT/ML eC W1 ([facility]) Acetaminophen 325 MG Oral Tablet Acetaminophen 325 MG 2019 12:00:00 AM EST 2.0 {tablets_as_needed} active Acetaminophen 325 MG eCW1 ([facility]) 3 ML insulin detemir 100 UNT/ML Pen Inje ctor [Levemir] Levemir FlexTouch 100 UNIT/ML Levemir FlexTouch 100 UNIT/ML 02/03/2020 12:00:00 AM EST active Levemir FlexTouch 100 UNIT/ML eC W1 ([facility]) 3 ML insulin detemir 100 UNT/ML Pen Inje ctor [Levemir] Levemir FlexTouch 100 UNIT/ML Levemir FlexTouch 100 UNIT/ML 02/03/2020 12:00:00 AM EST active Levemir FlexTouch 100 UNIT/ML eC W1 ([facility]) Acetaminophen 325 MG Oral Tablet Acetaminophen 325 MG 2019 12:00:00 AM EST 2.0 {tablets_as_needed} active Acetaminophen 325 MG eCW1 ([facility]) Amlodipine 5 MG Oral Tablet AmLODIPine Besylate 5 MG AmLODIP ine Besylate 5 MG 02/03/2020 12:00:00 AM EST 1.0 {tablet} active AmLODIPine Besylate 5 MG eCW1 ([facility]) Hydrochlorothiazide 12.5 MG Oral Tablet Hydrochlorothiazide 12.5 MG 02/03/2020 12:00:00 AM EST 1.0 {tablet_in_the_morning} acti ve Hydrochlorothiazide 12.5 MG eCW1 ([facility]) 3 ML insulin detemir 100 UNT/ML Pen Inje ctor [Levemir] Levemir FlexTouch 100 UNIT/ML Levemir FlexTouch 100 UNIT/ML 02/03/2020 12:00:00 AM EST active Levemir FlexTouch 100 UNIT/ML eC W1 ([facility]) Amlodipine 5 MG Oral Tablet AmLODIPine Besylate 5 MG AmLODIP ine Besylate 5 MG 02/03/2020 12:00:00 AM EST 1.0 {tablet} active AmLODIPine Besylate 5 MG eCW1 ([facility]) 3 ML insulin detemir 100 UNT/ML Pen Inje ctor [Levemir] Levemir FlexTouch 100 UNIT/ML Levemir FlexTouch 100 UNIT/ML 02/03/2020 12:00:00 AM EST active Levemir FlexTouch 100 UNIT/ML eC W1 ([facility]) 3 ML insulin detemir 100 UNT/ML Pen Inje ctor [Levemir] Levemir FlexTouch 100 UNIT/ML Levemir FlexTouch 100 UNIT/ML 02/03/2020 12:00:00 AM EST active Levemir FlexTouch 100 UNIT/ML eC W1 ([facility]) 3 ML insulin detemir 100 UNT/ML Pen Inje ctor [Levemir] Levemir FlexTouch 100 UNIT/ML Levemir FlexTouch 100 UNIT/ML 02/03/2020 12:00:00 AM EST active Levemir FlexTouch 100 UNIT/ML eC W1 ([facility]) 3 ML insulin detemir 100 UNT/ML Pen Inje ctor [Levemir] Levemir FlexTouch 100 UNIT/ML Levemir FlexTouch 100 UNIT/ML 02/03/2020 12:00:00 AM EST active Levemir FlexTouch 100 UNIT/ML eC W1 ([facility]) 3 ML insulin detemir 100 UNT/ML Pen Inje ctor [Levemir] Levemir FlexTouch 100 UNIT/ML Levemir FlexTouch 100 UNIT/ML 02/03/2020 12:00:00 AM EST active Levemir FlexTouch 100 UNIT/ML eC W1 ([facility]) 3 ML insulin detemir 100 UNT/ML Pen Inje ctor [Levemir] Levemir FlexTouch 100 UNIT/ML Levemir FlexTouch 100 UNIT/ML 02/03/2020 12:00:00 AM EST active Levemir FlexTouch 100 UNIT/ML eC W1 ([facility]) Acetaminophen 325 MG Oral Tablet Acetaminophen 325 MG 2019 12:00:00 AM EST 2.0 {tablets_as_needed} active Acetaminophen 325 MG eCW1 ([facility]) 3 ML insulin detemir 100 UNT/ML Pen Inje ctor [Levemir] Levemir FlexTouch 100 UNIT/ML Levemir FlexTouch 100 UNIT/ML 02/03/2020 12:00:00 AM EST active Levemir FlexTouch 100 UNIT/ML eC W1 ([facility]) Acetaminophen 325 MG Oral Tablet Acetaminophen 325 MG 2019 12:00:00 AM EST 2.0 {tablets_as_needed} active Acetaminophen 325 MG eCW1 ([facility]) Amlodipine 5 MG Oral Tablet AmLODIPine Besylate 5 MG AmLODIP ine Besylate 5 MG 02/03/2020 12:00:00 AM EST 1.0 {tablet} active AmLODIPine Besylate 5 MG eCW1 ([facility]) Acetaminophen 325 MG Oral Tablet Acetaminophen 325 MG 2019 12:00:00 AM EST 2.0 {tablets_as_needed} active Acetaminophen 325 MG eCW1 ([facility]) 3 ML insulin detemir 100 UNT/ML Pen Inje ctor [Levemir] Levemir FlexTouch 100 UNIT/ML Levemir FlexTouch 100 UNIT/ML 02/03/2020 12:00:00 AM EST active Levemir FlexTouch 100 UNIT/ML eC W1 ([facility]) 3 ML insulin detemir 100 UNT/ML Pen Inje ctor [Levemir] Levemir FlexTouch 100 UNIT/ML Levemir FlexTouch 100 UNIT/ML 02/03/2020 12:00:00 AM EST active Levemir FlexTouch 100 UNIT/ML eC W1 ([facility]) 3 ML insulin detemir 100 UNT/ML Pen Inje ctor [Levemir] Levemir FlexTouch 100 UNIT/ML Levemir FlexTouch 100 UNIT/ML 02/03/2020 12:00:00 AM EST active Levemir FlexTouch 100 UNIT/ML eC W1 ([facility]) 3 ML insulin detemir 100 UNT/ML Pen Inje ctor [Levemir] Levemir FlexTouch 100 UNIT/ML Levemir FlexTouch 100 UNIT/ML 02/03/2020 12:00:00 AM EST active Levemir FlexTouch 100 UNIT/ML eC W1 ([facility]) Acetaminophen 325 MG Oral Tablet Acetaminophen 325 MG 2019 12:00:00 AM EST 2.0 {tablets_as_needed} active Acetaminophen 325 MG eCW1 ([facility]) 3 ML insulin detemir 100 UNT/ML Pen Inje ctor [Levemir] Levemir FlexTouch 100 UNIT/ML Levemir FlexTouch 100 UNIT/ML 02/03/2020 12:00:00 AM EST active Levemir FlexTouch 100 UNIT/ML eC W1 ([facility]) Amlodipine 5 MG Oral Tablet AmLODIPine Besylate 5 MG AmLODIP ine Besylate 5 MG 02/03/2020 12:00:00 AM EST 1.0 {tablet} active AmLODIPine Besylate 5 MG eCW1 ([facility]) Acetaminophen 325 MG Oral Tablet Acetaminophen 325 MG 2019 12:00:00 AM EST 2.0 {tablets_as_needed} active Acetaminophen 325 MG eCW1 ([facility]) 3 ML insulin detemir 100 UNT/ML Pen Inje ctor [Levemir] Levemir FlexTouch 100 UNIT/ML Levemir FlexTouch 100 UNIT/ML 02/03/2020 12:00:00 AM EST active Levemir FlexTouch 100 UNIT/ML eC W1 ([facility]) Acetaminophen 325 MG Oral Tablet Acetaminophen 325 MG 2019 12:00:00 AM EST 2.0 {tablets_as_needed} active Acetaminophen 325 MG eCW1 ([facility]) Hydrochlorothiazide 12.5 MG Oral Tablet Hydrochlorothiazide 12.5 MG 02/03/2020 12:00:00 AM EST 1.0 {tablet_in_the_morning} acti ve Hydrochlorothiazide 12.5 MG eCW1 ([facility]) Amlodipine 5 MG Oral Tablet AmLODIPine Besylate 5 MG AmLODIP ine Besylate 5 MG 02/03/2020 12:00:00 AM EST 1.0 {tablet} active AmLODIPine Besylate 5 MG eCW1 ([facility]) Acetaminophen 325 MG Oral Tablet Acetaminophen 325 MG 2019 12:00:00 AM EST 2.0 {tablets_as_needed} active Acetaminophen 325 MG eCW1 ([facility]) 3 ML insulin detemir 100 UNT/ML Pen Inje ctor [Levemir] Levemir FlexTouch 100 UNIT/ML Levemir FlexTouch 100 UNIT/ML 02/03/2020 12:00:00 AM EST active Levemir FlexTouch 100 UNIT/ML eC W1 ([facility]) Amlodipine 5 MG Oral Tablet AmLODIPine Besylate 5 MG AmLODIP ine Besylate 5 MG 02/03/2020 12:00:00 AM EST 1.0 {tablet} active AmLODIPine Besylate 5 MG eCW1 ([facility]) 3 ML insulin detemir 100 UNT/ML Pen Inje ctor [Levemir] Levemir FlexTouch 100 UNIT/ML Levemir FlexTouch 100 UNIT/ML 02/03/2020 12:00:00 AM EST active Levemir FlexTouch 100 UNIT/ML eC W1 ([facility]) Amlodipine 5 MG Oral Tablet AmLODIPine Besylate 5 MG AmLODIP ine Besylate 5 MG 02/03/2020 12:00:00 AM EST 1.0 {tablet} active AmLODIPine Besylate 5 MG eCW1 ([facility]) 3 ML insulin detemir 100 UNT/ML Pen Inje ctor [Levemir] Levemir FlexTouch 100 UNIT/ML Levemir FlexTouch 100 UNIT/ML 02/03/2020 12:00:00 AM EST active Levemir FlexTouch 100 UNIT/ML eC W1 ([facility]) Amlodipine 5 MG Oral Tablet AmLODIPine Besylate 5 MG AmLODIP ine Besylate 5 MG 02/03/2020 12:00:00 AM EST 1.0 {tablet} active AmLODIPine Besylate 5 MG eCW1 ([facility]) Acetaminophen 325 MG Oral Tablet Acetaminophen 325 MG 2019 12:00:00 AM EST 2.0 {tablets_as_needed} active Acetaminophen 325 MG eCW1 ([facility]) 3 ML insulin detemir 100 UNT/ML Pen Inje ctor [Levemir] Levemir FlexTouch 100 UNIT/ML Levemir FlexTouch 100 UNIT/ML 02/03/2020 12:00:00 AM EST active Levemir FlexTouch 100 UNIT/ML eC W1 ([facility]) 3 ML insulin detemir 100 UNT/ML Pen Inje ctor [Levemir] Levemir FlexTouch 100 UNIT/ML Levemir FlexTouch 100 UNIT/ML 02/03/2020 12:00:00 AM EST active Levemir FlexTouch 100 UNIT/ML eC W1 ([facility]) Acetaminophen 325 MG Oral Tablet Acetaminophen 325 MG 2019 12:00:00 AM EST 2.0 {tablets_as_needed} active Acetaminophen 325 MG eCW1 ([facility]) Amlodipine 5 MG Oral Tablet AmLODIPine Besylate 5 MG AmLODIP ine Besylate 5 MG 02/03/2020 12:00:00 AM EST 1.0 {tablet} active AmLODIPine Besylate 5 MG eCW1 ([facility]) Acetaminophen 325 MG Oral Tablet Acetaminophen 325 MG 2019 12:00:00 AM EST 2.0 {tablets_as_needed} active Acetaminophen 325 MG eCW1 ([facility]) 3 ML insulin detemir 100 UNT/ML Pen Inje ctor [Levemir] Levemir FlexTouch 100 UNIT/ML Levemir FlexTouch 100 UNIT/ML 02/03/2020 12:00:00 AM EST active Levemir FlexTouch 100 UNIT/ML eC W1 ([facility]) 3 ML insulin detemir 100 UNT/ML Pen Inje ctor [Levemir] Levemir FlexTouch 100 UNIT/ML Levemir FlexTouch 100 UNIT/ML 02/03/2020 12:00:00 AM EST active Levemir FlexTouch 100 UNIT/ML eC W1 ([facility]) 3 ML insulin detemir 100 UNT/ML Pen Inje ctor [Levemir] Levemir FlexTouch 100 UNIT/ML Levemir FlexTouch 100 UNIT/ML 02/03/2020 12:00:00 AM EST active Levemir FlexTouch 100 UNIT/ML eC W1 ([facility]) 3 ML insulin detemir 100 UNT/ML Pen Inje ctor [Levemir] Levemir FlexTouch 100 UNIT/ML Levemir FlexTouch 100 UNIT/ML 02/03/2020 12:00:00 AM EST active Levemir FlexTouch 100 UNIT/ML eC W1 ([facility]) Acetaminophen 325 MG Oral Tablet Acetaminophen 325 MG 2019 12:00:00 AM EST 2.0 {tablets_as_needed} active Acetaminophen 325 MG eCW1 ([facility]) 3 ML insulin detemir 100 UNT/ML Pen Inje ctor [Levemir] Levemir FlexTouch 100 UNIT/ML Levemir FlexTouch 100 UNIT/ML 02/03/2020 12:00:00 AM EST active Levemir FlexTouch 100 UNIT/ML eC W1 ([facility]) 3 ML insulin detemir 100 UNT/ML [place] [Levemir] Levemir FlexTouch 100 UNIT/ML Levemir FlexTouch 100 UNIT/ML 02/03/2020 12:00:00 AM EST active Levemir FlexTouch 100 UNIT/ML eC W1 ([facility]) Acetaminophen 325 MG Oral Tablet Acetaminophen 325 MG 2019 12:00:00 AM EST 2.0 {tablets_as_needed} active Acetaminophen 325 MG eCW1 ([facility]) 3 ML insulin detemir 100 UNT/ML [place] [Levemir] Levemir FlexTouch 100 UNIT/ML Levemir FlexTouch 100 UNIT/ML 02/03/2020 12:00:00 AM EST active Levemir FlexTouch 100 UNIT/ML eC W1 ([facility]) 3 ML insulin detemir 100 UNT/ML [place] [Levemir] Levemir FlexTouch 100 UNIT/ML Levemir FlexTouch 100 UNIT/ML 02/03/2020 12:00:00 AM EST active Levemir FlexTouch 100 UNIT/ML eC W1 ([facility]) Amlodipine 5 MG Oral Tablet AmLODIPine Besylate 5 MG AmLODIP ine Besylate 5 MG 02/03/2020 12:00:00 AM EST 1.0 {tablet} active AmLODIPine Besylate 5 MG eCW1 ([facility]) 3 ML insulin detemir 100 UNT/ML [place] [Levemir] Levemir FlexTouch 100 UNIT/ML Levemir FlexTouch 100 UNIT/ML 02/03/2020 12:00:00 AM EST active Levemir FlexTouch 100 UNIT/ML eC W1 ([facility]) 3 ML insulin detemir 100 UNT/ML [place] [Levemir] Levemir FlexTouch 100 UNIT/ML Levemir FlexTouch 100 UNIT/ML 02/03/2020 12:00:00 AM EST active Levemir FlexTouch 100 UNIT/ML eC W1 ([facility]) 3 ML insulin detemir 100 UNT/ML [place] [Levemir] Levemir FlexTouch 100 UNIT/ML Levemir FlexTouch 100 UNIT/ML 02/03/2020 12:00:00 AM EST active Levemir FlexTouch 100 UNIT/ML eC W1 ([facility]) 3 ML insulin detemir 100 UNT/ML [place] [Levemir] Levemir FlexTouch 100 UNIT/ML Levemir FlexTouch 100 UNIT/ML 02/03/2020 12:00:00 AM EST active Levemir FlexTouch 100 UNIT/ML eC W1 ([facility]) 3 ML insulin detemir 100 UNT/ML [place] [Levemir] Levemir FlexTouch 100 UNIT/ML Levemir FlexTouch 100 UNIT/ML 02/03/2020 12:00:00 AM EST active Levemir FlexTouch 100 UNIT/ML eC W1 ([facility]) 3 ML insulin detemir 100 UNT/ML [place] [Levemir] Levemir FlexTouch 100 UNIT/ML Levemir FlexTouch 100 UNIT/ML 02/03/2020 12:00:00 AM EST active Levemir FlexTouch 100 UNIT/ML eC W1 ([facility]) Amlodipine 5 MG Oral Tablet AmLODIPine Besylate 5 MG AmLODIP ine Besylate 5 MG 02/03/2020 12:00:00 AM EST 1.0 {tablet} active AmLODIPine Besylate 5 MG eCW1 ([facility]) Hydrochlorothiazide 12.5 MG Oral Capsule hydrochlorothiazide (MICROZIDE) 12.5 MG capsule hydrochlorothiazide (MICROZIDE) 12.5 MG capsule 2019 12:00:00 AM EST aborted [facility] ferrous sulfate 325 MG Delayed Release O ral Tablet Ferrous Sulfate 325 (65 Fe) MG Ferrous Sulfate 325 (65 Fe) MG 01/26/2020 12:00:00 AM EST 1. 0 {tablet} active Ferrous Sulfate 325 (65 Fe) MG eCW1 ([facility]) ferrous sulfate 325 MG Delayed Release O ral Tablet Ferrous Sulfate 325 (65 Fe) MG Ferrous Sulfate 325 (65 Fe) MG 01/26/2020 12:00:00 AM EST 1. 0 {tablet} active Ferrous Sulfate 325 (65 Fe) MG eCW1 ([facility]) [place] 5/16" UNK 01/26/2020 12:00:00 AM EST active [place] 5/16" eCW1 ([facility]) [place] 5/16" UNK 01/26/2020 12:00:00 AM EST active [place] 5/16" eCW1 ([facility]) [place] 5/16" UNK 01/26/2020 12:00:00 AM EST active [place] 5/16" eCW1 ([facility]) [place] 5/16" UNK 01/26/2020 12:00:00 AM EST active [place] 516" eCW1 ([facility]) [place] 516" UNK 01/26/2020 12:00:00 AM EST active [place] 516" eCW1 ([facility]) ferrous sulfate 325 MG Delayed Release O ral Tablet Ferrous Sulfate 325 (65 Fe) MG Ferrous Sulfate 325 (65 Fe) MG 01/26/2020 12:00:00 AM EST 1. 0 {tablet} active Ferrous Sulfate 325 (65 Fe) MG eCW1 ([facility]) [place] 516" UNK 01/26/2020 12:00:00 AM EST active [place] 516" eCW1 ([facility]) ferrous sulfate 325 MG Delayed Release O ral Tablet Ferrous Sulfate 325 (65 Fe) MG Ferrous Sulfate 325 (65 Fe) MG 01/26/2020 12:00:00 AM EST 1. 0 {tablet} active Ferrous Sulfate 325 (65 Fe) MG eCW1 ([facility]) ferrous sulfate 325 MG Delayed Release O ral Tablet Ferrous Sulfate 325 (65 Fe) MG Ferrous Sulfate 325 (65 Fe) MG 01/26/2020 12:00:00 AM EST 1. 0 {tablet} active Ferrous Sulfate 325 (65 Fe) MG eCW1 ([facility]) [place] 516" UNK 01/26/2020 12:00:00 AM EST active [place] 516" eCW1 ([facility]) ferrous sulfate 325 MG Delayed Release O ral Tablet Ferrous Sulfate 325 (65 Fe) MG Ferrous Sulfate 325 (65 Fe) MG 01/26/2020 12:00:00 AM EST 1. 0 {tablet} active Ferrous Sulfate 325 (65 Fe) MG eCW1 ([facility]) ferrous sulfate 325 MG Delayed Release O ral Tablet Ferrous Sulfate 325 (65 Fe) MG Ferrous Sulfate 325 (65 Fe) MG 01/26/2020 12:00:00 AM EST 1. 0 {tablet} active Ferrous Sulfate 325 (65 Fe) MG eCW1 ([facility]) [place] 5/16" UNK 01/26/2020 12:00:00 AM EST active [place] 516" eCW1 ([facility]) ferrous sulfate 325 MG Delayed Release O ral Tablet Ferrous Sulfate 325 (65 Fe) MG Ferrous Sulfate 325 (65 Fe) MG 01/26/2020 12:00:00 AM EST 1. 0 {tablet} active Ferrous Sulfate 325 (65 Fe) MG eCW1 ([facility]) [place] 5/16" UNK 01/26/2020 12:00:00 AM EST active [place] 5/16" eCW1 ([facility]) ferrous sulfate 325 MG Delayed Release O ral Tablet Ferrous Sulfate 325 (65 Fe) MG Ferrous Sulfate 325 (65 Fe) MG 01/26/2020 12:00:00 AM EST 1. 0 {tablet} active Ferrous Sulfate 325 (65 Fe) MG eCW1 ([facility]) ferrous sulfate 325 MG Delayed Release O ral Tablet Ferrous Sulfate 325 (65 Fe) MG Ferrous Sulfate 325 (65 Fe) MG 01/26/2020 12:00:00 AM EST 1. 0 {tablet} active Ferrous Sulfate 325 (65 Fe) MG eCW1 ([facility]) ferrous sulfate 325 MG Delayed Release O ral Tablet Ferrous Sulfate 325 (65 Fe) MG Ferrous Sulfate 325 (65 Fe) MG 01/26/2020 12:00:00 AM EST 1. 0 {tablet} active Ferrous Sulfate 325 (65 Fe) MG eCW1 ([facility]) ferrous sulfate 325 MG Delayed Release O ral Tablet Ferrous Sulfate 325 (65 Fe) MG Ferrous Sulfate 325 (65 Fe) MG 01/26/2020 12:00:00 AM EST 1. 0 {tablet} active Ferrous Sulfate 325 (65 Fe) MG eCW1 ([facility]) [place] 5/16" UNK 01/26/2020 12:00:00 AM EST active [place] 5/16" eCW1 ([facility]) [place] 5/16" UNK 01/26/2020 12:00:00 AM EST active [place] 5/16" eCW1 ([facility]) ferrous sulfate 325 MG Delayed Release O ral Tablet Ferrous Sulfate 325 (65 Fe) MG Ferrous Sulfate 325 (65 Fe) MG 01/26/2020 12:00:00 AM EST 1. 0 {tablet} active Ferrous Sulfate 325 (65 Fe) MG eCW1 ([facility]) [place] 5/16" UNK 01/26/2020 12:00:00 AM EST active [place] 5/16" eCW1 ([facility]) [place] 5/16" UNK 01/26/2020 12:00:00 AM EST active [place] 5/16" eCW1 ([facility]) ferrous sulfate 325 MG Delayed Release O ral Tablet Ferrous Sulfate 325 (65 Fe) MG Ferrous Sulfate 325 (65 Fe) MG 01/26/2020 12:00:00 AM EST 1. 0 {tablet} active Ferrous Sulfate 325 (65 Fe) MG eCW1 ([facility]) [place] 5/16" UNK 01/26/2020 12:00:00 AM EST active [place] 5/16" eCW1 ([facility]) [place] 5/16" UNK 01/26/2020 12:00:00 AM EST active [place] 5/16" eCW1 ([facility]) ferrous sulfate 325 MG Delayed Release O ral Tablet Ferrous Sulfate 325 (65 Fe) MG Ferrous Sulfate 325 (65 Fe) MG 01/26/2020 12:00:00 AM EST 1. 0 {tablet} active Ferrous Sulfate 325 (65 Fe) MG eCW1 ([facility]) [place] 5/16" UNK 01/26/2020 12:00:00 AM EST active [place] 5/16" eCW1 ([facility]) [place] 5/16" UNK 01/26/2020 12:00:00 AM EST active [place] 5/16" eCW1 ([facility]) ferrous sulfate 325 MG Delayed Release O ral Tablet Ferrous Sulfate 325 (65 Fe) MG Ferrous Sulfate 325 (65 Fe) MG 01/26/2020 12:00:00 AM EST 1. 0 {tablet} active Ferrous Sulfate 325 (65 Fe) MG eCW1 ([facility]) ferrous sulfate 325 MG Delayed Release O ral Tablet Ferrous Sulfate 325 (65 Fe) MG Ferrous Sulfate 325 (65 Fe) MG 01/26/2020 12:00:00 AM EST 1. 0 {tablet} active Ferrous Sulfate 325 (65 Fe) MG eCW1 ([facility]) ferrous sulfate 325 MG Delayed Release O ral Tablet Ferrous Sulfate 325 (65 Fe) MG Ferrous Sulfate 325 (65 Fe) MG 01/26/2020 12:00:00 AM EST 1. 0 {tablet} active Ferrous Sulfate 325 (65 Fe) MG eCW1 ([facility]) [place] 5/16" UNK 01/26/2020 12:00:00 AM EST active [place] 5/16" eCW1 ([facility]) ferrous sulfate 325 MG Delayed Release O ral Tablet Ferrous Sulfate 325 (65 Fe) MG Ferrous Sulfate 325 (65 Fe) MG 01/26/2020 12:00:00 AM EST 1. 0 {tablet} active Ferrous Sulfate 325 (65 Fe) MG eCW1 ([facility]) [place] 5/16" UNK 01/26/2020 12:00:00 AM EST active [place] 5/16" eCW1 ([facility]) [place] 5/16" UNK 01/26/2020 12:00:00 AM EST active [place] 5/16" eCW1 ([facility]) ferrous sulfate 325 MG Delayed Release O ral Tablet Ferrous Sulfate 325 (65 Fe) MG Ferrous Sulfate 325 (65 Fe) MG 01/26/2020 12:00:00 AM EST 1. 0 {tablet} active Ferrous Sulfate 325 (65 Fe) MG W1 ([facility]) ferrous sulfate 325 MG Delayed Release O ral Tablet Ferrous Sulfate 325 (65 Fe) MG Ferrous Sulfate 325 (65 Fe) MG 01/26/2020 12:00:00 AM EST 1. 0 {tablet} active Ferrous Sulfate 325 (65 Fe) MG eCW1 ([facility]) ferrous sulfate 325 MG Delayed Release O ral Tablet Ferrous Sulfate 325 (65 Fe) MG Ferrous Sulfate 325 (65 Fe) MG 01/26/2020 12:00:00 AM EST 1. 0 {tablet} active Ferrous Sulfate 325 (65 Fe) MG eCW1 ([facility]) [place] 5/16" UNK 01/26/2020 12:00:00 AM EST active [place] 5/16" eCW1 ([facility]) [place] 5/16" UNK 01/26/2020 12:00:00 AM EST active [place] 5/16" eCW1 ([facility]) ferrous sulfate 325 MG Delayed Release O ral Tablet Ferrous Sulfate 325 (65 Fe) MG Ferrous Sulfate 325 (65 Fe) MG 01/26/2020 12:00:00 AM EST 1. 0 {tablet} active Ferrous Sulfate 325 (65 Fe) MG eCW1 ([facility]) ferrous sulfate 325 MG Delayed Release O ral Tablet Ferrous Sulfate 325 (65 Fe) MG Ferrous Sulfate 325 (65 Fe) MG 01/26/2020 12:00:00 AM EST 1. 0 {tablet} active Ferrous Sulfate 325 (65 Fe) MG eCW1 ([facility]) ferrous sulfate 325 MG Delayed Release O ral Tablet Ferrous Sulfate 325 (65 Fe) MG Ferrous Sulfate 325 (65 Fe) MG 01/26/2020 12:00:00 AM EST 1. 0 {tablet} active Ferrous Sulfate 325 (65 Fe) MG eCW1 ([facility]) [place] 5/16" UNK 01/26/2020 12:00:00 AM EST active [place] 5/16" eCW1 ([facility]) [place] 5/16" UNK 01/26/2020 12:00:00 AM EST active [place] 5/16" eCW1 ([facility]) ferrous sulfate 325 MG Delayed Release O ral Tablet Ferrous Sulfate 325 (65 Fe) MG Ferrous Sulfate 325 (65 Fe) MG 01/26/2020 12:00:00 AM EST 1. 0 {tablet} active Ferrous Sulfate 325 (65 Fe) MG eCW1 ([facility]) [place] 5/16" UNK 01/26/2020 12:00:00 AM EST active [place] 5/16" eCW1 ([facility]) ferrous sulfate 325 MG Delayed Release O ral Tablet Ferrous Sulfate 325 (65 Fe) MG Ferrous Sulfate 325 (65 Fe) MG 01/26/2020 12:00:00 AM EST 1. 0 {tablet} active Ferrous Sulfate 325 (65 Fe) MG eCW1 ([facility]) ferrous sulfate 325 MG Delayed Release O ral Tablet Ferrous Sulfate 325 (65 Fe) MG Ferrous Sulfate 325 (65 Fe) MG 01/26/2020 12:00:00 AM EST 1. 0 {tablet} active Ferrous Sulfate 325 (65 Fe) MG eCW1 ([facility]) [place] 5/16" UNK 01/26/2020 12:00:00 AM EST active [place] 5/16" eCW1 ([facility]) ferrous sulfate 325 MG Delayed Release O ral Tablet Ferrous Sulfate 325 (65 Fe) MG Ferrous Sulfate 325 (65 Fe) MG 01/26/2020 12:00:00 AM EST 1. 0 {tablet} active Ferrous Sulfate 325 (65 Fe) MG eCW1 ([facility]) ferrous sulfate 325 MG Delayed Release O ral Tablet Ferrous Sulfate 325 (65 Fe) MG Ferrous Sulfate 325 (65 Fe) MG 01/26/2020 12:00:00 AM EST 1. 0 {tablet} active Ferrous Sulfate 325 (65 Fe) MG eCW1 ([facility]) ferrous sulfate 325 MG Delayed Release O ral Tablet Ferrous Sulfate 325 (65 Fe) MG Ferrous Sulfate 325 (65 Fe) MG 01/26/2020 12:00:00 AM EST 1. 0 {tablet} active Ferrous Sulfate 325 (65 Fe) MG [facility] [place]) ferrous sulfate 325 MG Delayed Release O ral Tablet Ferrous Sulfate 325 (65 Fe) MG Ferrous Sulfate 325 (65 Fe) MG 01/26/2020 12:00:00 AM EST 1. 0 {tablet} active Ferrous Sulfate 325 (65 Fe) MG [facility] [place]) [place] 5/16" UNK 01/26/2020 12:00:00 AM EST active [place] 5/16" W ([facility]) [place] 5/16" UNK 01/26/2020 12:00:00 AM EST active [place] 5/16" W ([facility]) [place] 5/16" UNK 01/26/2020 12:00:00 AM EST active [place] 5/16" eCW1 ([facility]) ferrous sulfate 325 MG Delayed Release O ral Tablet Ferrous Sulfate 325 (65 Fe) MG Ferrous Sulfate 325 (65 Fe) MG 01/26/2020 12:00:00 AM EST 1. 0 {tablet} active Ferrous Sulfate 325 (65 Fe) MG eC ([facility]) [place] 5/16" UNK 01/26/2020 12:00:00 AM EST active [place] 5/16" eCW1 ([facility]) [place] 5/16" UNK 01/26/2020 12:00:00 AM EST active [place] 5/16" eCW1 ([facility]) [place] 5/16" UNK 01/26/2020 12:00:00 AM EST active [place] 5/16" eCW1 ([facility]) [place] 5/16" UNK 01/26/2020 12:00:00 AM EST active [place] 5/16" eCW1 ([facility]) [place] 5/16" UNK 01/26/2020 12:00:00 AM EST active [place] 5/16" eCW1 ([facility]) [place] 5/16" UNK 01/26/2020 12:00:00 AM EST active [place] 5/16" eCW1 ([facility]) ferrous sulfate 325 MG Delayed Release O ral Tablet Ferrous Sulfate 325 (65 Fe) MG Ferrous Sulfate 325 (65 Fe) MG 01/26/2020 12:00:00 AM EST 1. 0 {tablet} active Ferrous Sulfate 325 (65 Fe) MG [facility] [place]) ferrous sulfate 325 MG Delayed Release O ral Tablet Ferrous Sulfate 325 (65 Fe) MG Ferrous Sulfate 325 (65 Fe) MG 01/26/2020 12:00:00 AM EST 1. 0 {tablet} active Ferrous Sulfate 325 (65 Fe) MG [facility] [place]) [place] 5/16" UNK 01/26/2020 12:00:00 AM EST active [place] 5/16" eCW1 ([facility]) [place] 5/16" UNK 01/26/2020 12:00:00 AM EST active [place] 5/16" eCW1 ([facility]) ferrous sulfate 325 MG Delayed Release O ral Tablet Ferrous Sulfate 325 (65 Fe) MG Ferrous Sulfate 325 (65 Fe) MG 01/26/2020 12:00:00 AM EST 1. 0 {tablet} active Ferrous Sulfate 325 (65 Fe) MG eCW1 ([facility]) ferrous sulfate 325 MG Delayed Release O ral Tablet Ferrous Sulfate 325 (65 Fe) MG Ferrous Sulfate 325 (65 Fe) MG 01/26/2020 12:00:00 AM EST 1. 0 {tablet} active Ferrous Sulfate 325 (65 Fe) MG eCW1 ([facility]) ferrous sulfate 325 MG Delayed Release O ral Tablet Ferrous Sulfate 325 (65 Fe) MG Ferrous Sulfate 325 (65 Fe) MG 01/26/2020 12:00:00 AM EST 1. 0 {tablet} active Ferrous Sulfate 325 (65 Fe) MG eCW1 ([facility]) ferrous sulfate 325 MG Delayed Release O ral Tablet Ferrous Sulfate 325 (65 Fe) MG Ferrous Sulfate 325 (65 Fe) MG 01/26/2020 12:00:00 AM EST 1. 0 {tablet} active Ferrous Sulfate 325 (65 Fe) MG W1 ([facility]) [place] 5/16" UNK 01/26/2020 12:00:00 AM EST active [place] 5/16" W1 ([facility]) [place] 5/16" UNK 01/26/2020 12:00:00 AM EST active [place] 5/16" W1 ([facility]) [place] 5/16" UNK 01/26/2020 12:00:00 AM EST active [place] 5/16" W1 ([facility]) [place] 5/16" UNK 01/26/2020 12:00:00 AM EST active [place] 5/16" eCW1 ([facility]) ferrous sulfate 325 MG Delayed Release O ral Tablet Ferrous Sulfate 325 (65 Fe) MG Ferrous Sulfate 325 (65 Fe) MG 01/26/2020 12:00:00 AM EST 1. 0 {tablet} active Ferrous Sulfate 325 (65 Fe) MG [facility] [place]) [place] 5/16" UNK 01/26/2020 12:00:00 AM EST active [place] 5/16" W1 ([facility]) [place] 5/16" UNK 01/26/2020 12:00:00 AM EST active [place] 5/16" W1 ([facility]) [place] 5/16" UNK 01/26/2020 12:00:00 AM EST active [place] 5/16" eCW1 ([facility]) [place] 5/16" UNK 01/26/2020 12:00:00 AM EST active [place] 5/16" eCW1 ([facility]) ferrous sulfate 325 MG Delayed Release O ral Tablet Ferrous Sulfate 325 (65 Fe) MG Ferrous Sulfate 325 (65 Fe) MG 01/26/2020 12:00:00 AM EST 1. 0 {tablet} active Ferrous Sulfate 325 (65 Fe) MG eCW1 ([facility]) [place] 5/16" UNK 01/26/2020 12:00:00 AM EST active [place] 5/16" eCW1 ([facility]) ferrous sulfate 325 MG Delayed Release O ral Tablet Ferrous Sulfate 325 (65 Fe) MG Ferrous Sulfate 325 (65 Fe) MG 01/26/2020 12:00:00 AM EST 1. 0 {tablet} active Ferrous Sulfate 325 (65 Fe) MG eCW1 ([facility]) [place] 5/16" UNK 01/26/2020 12:00:00 AM EST active [place] 5/16" eCW1 ([facility]) ferrous sulfate 325 MG Delayed Release O ral Tablet Ferrous Sulfate 325 (65 Fe) MG Ferrous Sulfate 325 (65 Fe) MG 01/26/2020 12:00:00 AM EST 1. 0 {tablet} active Ferrous Sulfate 325 (65 Fe) MG eCW1 ([facility]) [place] 5/16" UNK 01/26/2020 12:00:00 AM EST active [place] 5/16" eCW1 ([facility]) [place] 5/16" UNK 01/26/2020 12:00:00 AM EST active [place] 5/16" eCW1 ([facility]) [place] 5/16" UNK 01/26/2020 12:00:00 AM EST active [place] 5/16" eCW1 ([facility]) [place] 5/16" UNK 01/26/2020 12:00:00 AM EST active [place] 5/16" eCW1 ([facility]) [place] 5/16" UNK 01/26/2020 12:00:00 AM EST active [place] 5/16" eCW1 ([facility]) ferrous sulfate 325 MG Delayed Release O ral Tablet Ferrous Sulfate 325 (65 Fe) MG Ferrous Sulfate 325 (65 Fe) MG 01/26/2020 12:00:00 AM EST 1. 0 {tablet} active Ferrous Sulfate 325 (65 Fe) MG eCW1 ([facility]) [place] 5/16" UNK 01/26/2020 12:00:00 AM EST active [place] 5/16" eCW1 ([facility]) ferrous sulfate 325 MG Delayed Release O ral Tablet Ferrous Sulfate 325 (65 Fe) MG Ferrous Sulfate 325 (65 Fe) MG 01/26/2020 12:00:00 AM EST 1. 0 {tablet} active Ferrous Sulfate 325 (65 Fe) MG eCW1 ([facility]) [place] 5/16" UNK 01/26/2020 12:00:00 AM EST active [place] 5/16" eCW1 ([facility]) [place] 5/16" UNK 01/26/2020 12:00:00 AM EST active [place] 5/16" eCW1 ([facility]) ferrous sulfate 325 MG Delayed Release O ral Tablet Ferrous Sulfate 325 (65 Fe) MG Ferrous Sulfate 325 (65 Fe) MG 01/26/2020 12:00:00 AM EST 1. 0 {tablet} active Ferrous Sulfate 325 (65 Fe) MG eCW1 ([facility]) [place] 5/16" UNK 01/26/2020 12:00:00 AM EST active [place] 5/16" eCW1 ([facility]) ferrous sulfate 325 MG Delayed Release O ral Tablet Ferrous Sulfate 325 (65 Fe) MG Ferrous Sulfate 325 (65 Fe) MG 01/26/2020 12:00:00 AM EST 1. 0 {tablet} active Ferrous Sulfate 325 (65 Fe) MG eCW1 ([facility]) ferrous sulfate 325 MG Delayed Release O ral Tablet Ferrous Sulfate 325 (65 Fe) MG Ferrous Sulfate 325 (65 Fe) MG 01/26/2020 12:00:00 AM EST 1. 0 {tablet} active Ferrous Sulfate 325 (65 Fe) MG eCW1 ([facility]) [place] 5/16" UNK 01/26/2020 12:00:00 AM EST active [place] 5/16" eCW1 ([facility]) ferrous sulfate 325 MG Delayed Release O ral Tablet Ferrous Sulfate 325 (65 Fe) MG Ferrous Sulfate 325 (65 Fe) MG 01/26/2020 12:00:00 AM EST 1. 0 {tablet} active Ferrous Sulfate 325 (65 Fe) MG eCW1 ([facility]) ferrous sulfate 325 MG Delayed Release O ral Tablet Ferrous Sulfate 325 (65 Fe) MG Ferrous Sulfate 325 (65 Fe) MG 01/26/2020 12:00:00 AM EST 1. 0 {tablet} active Ferrous Sulfate 325 (65 Fe) MG W1 ([facility]) [place] 5/16" UNK 01/26/2020 12:00:00 AM EST active [place] 5/16" eCW1 ([facility]) [place] 5/16" UNK 01/26/2020 12:00:00 AM EST active [place] 5/16" eCW1 ([facility]) [place] 5/16" UNK 01/26/2020 12:00:00 AM EST active [place] 5/16" W1 ([facility]) [place] 5/16" UNK 01/26/2020 12:00:00 AM EST active [place] 5/16" eCW1 ([facility]) ferrous sulfate 325 MG Delayed Release O ral Tablet Ferrous Sulfate 325 (65 Fe) MG Ferrous Sulfate 325 (65 Fe) MG 01/26/2020 12:00:00 AM EST 1. 0 {tablet} active Ferrous Sulfate 325 (65 Fe) MG W1 ([facility]) [place] 5/16" UNK 01/26/2020 12:00:00 AM EST active [place] 5/16" W1 ([facility]) [place] 5/16" UNK 01/26/2020 12:00:00 AM EST active [place] 5/16" eCW1 ([facility]) ferrous sulfate 325 MG Delayed Release O ral Tablet Ferrous Sulfate 325 (65 Fe) MG Ferrous Sulfate 325 (65 Fe) MG 01/26/2020 12:00:00 AM EST 1. 0 {tablet} active Ferrous Sulfate 325 (65 Fe) MG W1 ([facility]) [place] 5/16" UNK 01/26/2020 12:00:00 AM EST active [place] 5/16" eCW1 ([facility]) [place] 5/16" UNK 01/26/2020 12:00:00 AM EST active [place] 5/16" eCW1 ([facility]) ferrous sulfate 325 MG Delayed Release O ral Tablet Ferrous Sulfate 325 (65 Fe) MG Ferrous Sulfate 325 (65 Fe) MG 01/26/2020 12:00:00 AM EST 1. 0 {tablet} active Ferrous Sulfate 325 (65 Fe) MG eCW1 ([facility]) ferrous sulfate 325 MG Delayed Release O ral Tablet Ferrous Sulfate 325 (65 Fe) MG Ferrous Sulfate 325 (65 Fe) MG 01/26/2020 12:00:00 AM EST 1. 0 {tablet} active Ferrous Sulfate 325 (65 Fe) MG eCW1 ([facility]) ferrous sulfate 325 MG Delayed Release O ral Tablet Ferrous Sulfate 325 (65 Fe) MG Ferrous Sulfate 325 (65 Fe) MG 01/26/2020 12:00:00 AM EST 1. 0 {tablet} active Ferrous Sulfate 325 (65 Fe) MG eCW1 ([facility]) [place] 5/16" UNK 01/26/2020 12:00:00 AM EST active [place] 5/16" eCW1 ([facility]) [place] 5/16" UNK 01/26/2020 12:00:00 AM EST active [place] 5/16" eCW1 ([facility]) ferrous sulfate 325 MG Delayed Release O ral Tablet Ferrous Sulfate 325 (65 Fe) MG Ferrous Sulfate 325 (65 Fe) MG 01/26/2020 12:00:00 AM EST 1. 0 {tablet} active Ferrous Sulfate 325 (65 Fe) MG eCW1 ([facility]) ferrous sulfate 325 MG Delayed Release O ral Tablet Ferrous Sulfate 325 (65 Fe) MG Ferrous Sulfate 325 (65 Fe) MG 01/26/2020 12:00:00 AM EST 1. 0 {tablet} active Ferrous Sulfate 325 (65 Fe) MG eCW1 ([facility]) ferrous sulfate 325 MG Delayed Release O ral Tablet Ferrous Sulfate 325 (65 Fe) MG Ferrous Sulfate 325 (65 Fe) MG 01/26/2020 12:00:00 AM EST 1. 0 {tablet} active Ferrous Sulfate 325 (65 Fe) MG eCW1 ([facility]) ferrous sulfate 325 MG Delayed Release O ral Tablet Ferrous Sulfate 325 (65 Fe) MG Ferrous Sulfate 325 (65 Fe) MG 01/26/2020 12:00:00 AM EST 1. 0 {tablet} active Ferrous Sulfate 325 (65 Fe) MG eCW1 ([facility]) ferrous sulfate 325 MG Delayed Release O ral Tablet Ferrous Sulfate 325 (65 Fe) MG Ferrous Sulfate 325 (65 Fe) MG 01/26/2020 12:00:00 AM EST 1. 0 {tablet} active Ferrous Sulfate 325 (65 Fe) MG eCW1 ([facility]) ferrous sulfate 325 MG Delayed Release O ral Tablet Ferrous Sulfate 325 (65 Fe) MG Ferrous Sulfate 325 (65 Fe) MG 01/26/2020 12:00:00 AM EST 1. 0 {tablet} active Ferrous Sulfate 325 (65 Fe) MG eCW1 ([facility]) ferrous sulfate 325 MG Delayed Release O ral Tablet Ferrous Sulfate 325 (65 Fe) MG Ferrous Sulfate 325 (65 Fe) MG 01/26/2020 12:00:00 AM EST 1. 0 {tablet} active Ferrous Sulfate 325 (65 Fe) MG eCW1 ([facility]) [place] 5/16" UNK 01/26/2020 12:00:00 AM EST active [place] [place] 5/16" eCW1 ([facility]) ferrous sulfate 325 MG Delayed Release O ral Tablet Ferrous Sulfate 325 (65 Fe) MG Ferrous Sulfate 325 (65 Fe) MG 01/26/2020 12:00:00 AM EST 1. 0 {tablet} active Ferrous Sulfate 325 (65 Fe) MG eCW1 ([facility]) ferrous sulfate 325 MG Delayed Release O ral Tablet Ferrous Sulfate 325 (65 Fe) MG Ferrous Sulfate 325 (65 Fe) MG 01/26/2020 12:00:00 AM EST 1. 0 {tablet} active Ferrous Sulfate 325 (65 Fe) MG eCW1 ([facility]) [place] 5/16" UNK 01/26/2020 12:00:00 AM EST active [place] 5/16" eCW1 ([facility]) ferrous sulfate 325 MG Delayed Release O ral Tablet Ferrous Sulfate 325 (65 Fe) MG Ferrous Sulfate 325 (65 Fe) MG 01/26/2020 12:00:00 AM EST 1. 0 {tablet} active Ferrous Sulfate 325 (65 Fe) MG eCW1 ([facility]) [place] 5/16" UNK 01/26/2020 12:00:00 AM EST active [place] 5/16" eCW1 ([facility]) [place] 5/16" UNK 01/26/2020 12:00:00 AM EST active [place] 516" eCW1 ([facility]) ferrous sulfate 325 MG Delayed Release O ral Tablet Ferrous Sulfate 325 (65 Fe) MG Ferrous Sulfate 325 (65 Fe) MG 01/26/2020 12:00:00 AM EST 1. 0 {tablet} active Ferrous Sulfate 325 (65 Fe) MG eCW1 ([facility]) ferrous sulfate 325 MG Delayed Release O ral Tablet Ferrous Sulfate 325 (65 Fe) MG Ferrous Sulfate 325 (65 Fe) MG 01/26/2020 12:00:00 AM EST 1. 0 {tablet} active Ferrous Sulfate 325 (65 Fe) MG eCW1 ([facility]) ferrous sulfate 325 MG Delayed Release O ral Tablet Ferrous Sulfate 325 (65 Fe) MG Ferrous Sulfate 325 (65 Fe) MG 01/26/2020 12:00:00 AM EST 1. 0 {tablet} active Ferrous Sulfate 325 (65 Fe) MG W1 ([facility]) ferrous sulfate 325 MG Delayed Release O ral Tablet Ferrous Sulfate 325 (65 Fe) MG Ferrous Sulfate 325 (65 Fe) MG 01/26/2020 12:00:00 AM EST 1. 0 {tablet} active Ferrous Sulfate 325 (65 Fe) MG [facility] [place] ([facility]) ferrous sulfate 325 MG Delayed Release O ral Tablet Ferrous Sulfate 325 (65 Fe) MG Ferrous Sulfate 325 (65 Fe) MG 01/26/2020 12:00:00 AM EST 1. 0 {tablet} active Ferrous Sulfate 325 (65 Fe) MG eCW1 ([facility]) ferrous sulfate 325 MG Delayed Release O ral Tablet Ferrous Sulfate 325 (65 Fe) MG Ferrous Sulfate 325 (65 Fe) MG 01/26/2020 12:00:00 AM EST 1. 0 {tablet} active Ferrous Sulfate 325 (65 Fe) MG eCW1 ([facility]) ferrous sulfate 325 MG Delayed Release O ral Tablet Ferrous Sulfate 325 (65 Fe) MG Ferrous Sulfate 325 (65 Fe) MG 01/26/2020 12:00:00 AM EST 1. 0 {tablet} active Ferrous Sulfate 325 (65 Fe) MG eCW1 ([facility]) [place] 5/16" UNK 01/26/2020 12:00:00 AM EST active [place] 516" eCW1 ([facility]) Lancets - Lancets - 12/07/2019 12:00:00 AM EDT act mukesh Lancets - eCW1 ([facility]) Lancets - Lancets - 12/07/2019 12:00:00 AM EDT act mukesh Lancets - eCW1 ([facility]) Lancets - Lancets - 12/07/2019 12:00:00 AM EDT act mukesh Lancets - eCW1 ([facility]) Glucometer UNK 12/07/2019 12:00:00 AM EDT active Glucometer eCW1 ([facility]) Lancets - Lancets - 12/07/2019 12:00:00 AM EDT act mukesh Lancets - eCW1 ([facility]) Glucometer UNK 12/07/2019 12:00:00 AM EDT active Glucometer eCW1 ([facility]) Lancets - Lancets - 12/07/2019 12:00:00 AM EDT act mukesh Lancets - eCW1 ([facility]) Glucometer UNK 12/07/2019 12:00:00 AM EDT active Glucometer eCW1 ([facility]) Lancets - Lancets - 12/07/2019 12:00:00 AM EDT act mukesh Lancets - eCW1 ([facility]) Glucometer UNK 12/07/2019 12:00:00 AM EDT active Glucometer eCW1 ([facility]) Lancets - Lancets - 12/07/2019 12:00:00 AM EDT act mukesh Lancets - eCW1 ([facility]) Glucometer UNK 12/07/2019 12:00:00 AM EDT active Glucometer eCW1 ([facility]) Glucometer UNK 12/07/2019 12:00:00 AM EDT active Glucometer eCW1 ([facility]) Glucometer UNK 12/07/2019 12:00:00 AM EDT active Glucometer eCW1 ([facility]) Glucometer UNK 12/07/2019 12:00:00 AM EDT active Glucometer eCW1 ([facility]) Lancets - Lancets - 12/07/2019 12:00:00 AM EDT act mukesh Lancets - eCW1 ([facility]) Lancets - Lancets - 12/07/2019 12:00:00 AM EDT act mukesh Lancets - eCW1 ([facility]) Lancets - Lancets - 12/07/2019 12:00:00 AM EDT act mukesh Lancets - eCW1 ([facility]) Lancets - Lancets - 12/07/2019 12:00:00 AM EDT act mukesh Lancets - eCW1 ([facility]) Lancets - Lancets - 12/07/2019 12:00:00 AM EDT act mukesh Lancets - eCW1 ([facility]) Glucometer UNK 12/07/2019 12:00:00 AM EDT active Glucometer eCW1 ([facility]) Lancets - Lancets - 12/07/2019 12:00:00 AM EDT act mukesh Lancets - eCW1 ([facility]) Glucometer UNK 12/07/2019 12:00:00 AM EDT active Glucometer eCW1 ([facility]) Lancets - Lancets - 12/07/2019 12:00:00 AM EDT act mukesh Lancets - eCW1 ([facility]) Glucometer UNK 12/07/2019 12:00:00 AM EDT active Glucometer eCW1 ([facility]) Glucometer UNK 12/07/2019 12:00:00 AM EDT active Glucometer eCW1 ([facility]) Lancets - Lancets - 12/07/2019 12:00:00 AM EDT act mukesh Lancets - eCW1 ([facility]) Lancets - Lancets - 12/07/2019 12:00:00 AM EDT act mukesh Lancets - eCW1 ([facility]) Lancets - Lancets - 12/07/2019 12:00:00 AM EDT act mukesh Lancets - eCW1 ([facility]) Lancets - Lancets - 12/07/2019 12:00:00 AM EDT act mukesh Lancets - eCW1 ([facility]) Glucometer UNK 12/07/2019 12:00:00 AM EDT active Glucometer eCW1 ([facility]) Lancets - Lancets - 12/07/2019 12:00:00 AM EDT act mukesh Lancets - eCW1 ([facility]) Glucometer UNK 12/07/2019 12:00:00 AM EDT active Glucometer eCW1 ([facility]) Glucometer UNK 12/07/2019 12:00:00 AM EDT active Glucometer eCW1 ([facility]) Glucometer UNK 12/07/2019 12:00:00 AM EDT active Glucometer eCW1 ([facility]) Lancets - Lancets - 12/07/2019 12:00:00 AM EDT act mukesh Lancets - eCW1 ([facility]) Glucometer UNK 12/07/2019 12:00:00 AM EDT active Glucometer eCW1 ([facility]) Lancets - Lancets - 12/07/2019 12:00:00 AM EDT act mukesh Lancets - eCW1 ([facility]) Glucometer UNK 12/07/2019 12:00:00 AM EDT active Glucometer eCW1 ([facility]) Lancets - Lancets - 12/07/2019 12:00:00 AM EDT act mukesh Lancets - eCW1 ([facility]) Lancets - Lancets - 12/07/2019 12:00:00 AM EDT act mukesh Lancets - eCW1 ([facility]) Glucometer UNK 12/07/2019 12:00:00 AM EDT active Glucometer eCW1 ([facility]) Glucometer UNK 12/07/2019 12:00:00 AM EDT active Glucometer eCW1 ([facility]) Lancets - Lancets - 12/07/2019 12:00:00 AM EDT act mukesh Lancets - eCW1 ([facility]) Lancets - Lancets - 12/07/2019 12:00:00 AM EDT act mukesh Lancets - eCW1 ([facility]) Lancets - Lancets - 12/07/2019 12:00:00 AM EDT act mukesh Lancets - eCW1 ([facility]) Lancets - Lancets - 12/07/2019 12:00:00 AM EDT act mukesh Lancets - eCW1 ([facility]) Glucometer UNK 12/07/2019 12:00:00 AM EDT active Glucometer eCW1 ([facility]) Lancets - Lancets - 12/07/2019 12:00:00 AM EDT act mukesh Lancets - eCW1 ([facility]) Lancets - Lancets - 12/07/2019 12:00:00 AM EDT act mukesh Lancets - eCW1 ([facility]) Lancets - Lancets - 12/07/2019 12:00:00 AM EDT act mukesh Lancets - eCW1 ([facility]) Glucometer UNK 12/07/2019 12:00:00 AM EDT active Glucometer eCW1 ([facility]) Lancets - Lancets - 12/07/2019 12:00:00 AM EDT act mukesh Lancets - eCW1 ([facility]) Lancets - Lancets - 12/07/2019 12:00:00 AM EDT act mukesh Lancets - eCW1 ([facility]) Lancets - Lancets - 12/07/2019 12:00:00 AM EDT act mukesh Lancets - eCW1 ([facility]) Lancets - Lancets - 12/07/2019 12:00:00 AM EDT act mukesh Lancets - eCW1 ([facility]) Lancets - Lancets - 12/07/2019 12:00:00 AM EDT act mukesh Lancets - eCW1 ([facility]) Lancets - Lancets - 12/07/2019 12:00:00 AM EDT act mukesh Lancets - eCW1 ([facility]) Glucometer UNK 12/07/2019 12:00:00 AM EDT active Glucometer eCW1 ([facility]) Lancets - Lancets - 12/07/2019 12:00:00 AM EDT act mukesh Lancets - eCW1 ([facility]) Glucometer UNK 12/07/2019 12:00:00 AM EDT active Glucometer eCW1 ([facility]) Glucometer UNK 12/07/2019 12:00:00 AM EDT active Glucometer eCW1 ([facility]) Glucometer UNK 12/07/2019 12:00:00 AM EDT active Glucometer eCW1 ([facility]) Glucometer UNK 12/07/2019 12:00:00 AM EDT active Glucometer eCW1 ([facility]) Glucometer UNK 12/07/2019 12:00:00 AM EDT active Glucometer eCW1 ([facility]) Glucometer UNK 12/07/2019 12:00:00 AM EDT active Glucometer eCW1 ([facility]) Glucometer UNK 12/07/2019 12:00:00 AM EDT active Glucometer eCW1 ([facility]) Lancets - Lancets - 12/07/2019 12:00:00 AM EDT act mukesh Lancets - eCW1 ([facility]) Lancets - Lancets - 12/07/2019 12:00:00 AM EDT act mukesh Lancets - eCW1 ([facility]) Glucometer UNK 12/07/2019 12:00:00 AM EDT active Glucometer eCW1 ([facility]) Glucometer UNK 12/07/2019 12:00:00 AM EDT active Glucometer eCW1 ([facility]) Glucometer UNK 12/07/2019 12:00:00 AM EDT active Glucometer eCW1 ([facility]) Glucometer UNK 12/07/2019 12:00:00 AM EDT active Glucometer eCW1 ([facility]) Lancets - Lancets - 12/07/2019 12:00:00 AM EDT act mukesh Lancets - eCW1 ([facility]) Glucometer UNK 12/07/2019 12:00:00 AM EDT active Glucometer eCW1 ([facility]) Lancets - Lancets - 12/07/2019 12:00:00 AM EDT act mukesh Lancets - eCW1 ([facility]) Glucometer UNK 12/07/2019 12:00:00 AM EDT active Glucometer eCW1 ([facility]) Glucometer UNK 12/07/2019 12:00:00 AM EDT active Glucometer eCW1 ([facility]) Lancets - Lancets - 12/07/2019 12:00:00 AM EDT act mukesh Lancets - eCW1 ([facility]) Glucometer UNK 12/07/2019 12:00:00 AM EDT active Glucometer eCW1 ([facility]) Glucometer UNK 12/07/2019 12:00:00 AM EDT active Glucometer eCW1 ([facility]) Glucometer UNK 12/07/2019 12:00:00 AM EDT active Glucometer eCW1 ([facility]) Lancets - Lancets - 12/07/2019 12:00:00 AM EDT act mukesh Lancets - eCW1 ([facility]) Glucometer UNK 12/07/2019 12:00:00 AM EDT active Glucometer eCW1 ([facility]) Glucometer UNK 12/07/2019 12:00:00 AM EDT active Glucometer eCW1 ([facility]) Glucometer UNK 12/07/2019 12:00:00 AM EDT active Glucometer eCW1 ([facility]) Glucometer UNK 12/07/2019 12:00:00 AM EDT active Glucometer eCW1 ([facility]) Lancets - Lancets - 12/07/2019 12:00:00 AM EDT act mukesh Lancets - eCW1 ([facility]) Lancets - Lancets - 12/07/2019 12:00:00 AM EDT act mukesh Lancets - eCW1 ([facility]) Lancets - Lancets - 12/07/2019 12:00:00 AM EDT act mukesh Lancets - eCW1 ([facility]) Lancets - Lancets - 12/07/2019 12:00:00 AM EDT act mukesh Lancets - eCW1 ([facility]) Lancets - Lancets - 12/07/2019 12:00:00 AM EDT act mukesh Lancets - eCW1 ([facility]) Lancets - Lancets - 12/07/2019 12:00:00 AM EDT act mukesh Lancets - eCW1 ([facility]) Glucometer UNK 12/07/2019 12:00:00 AM EDT active Glucometer eCW1 ([facility]) Lancets - Lancets - 12/07/2019 12:00:00 AM EDT act mukesh Lancets - eCW1 ([facility]) Lancets - Lancets - 12/07/2019 12:00:00 AM EDT act mukesh Lancets - eCW1 ([facility]) Glucometer UNK 12/07/2019 12:00:00 AM EDT active Glucometer eCW1 ([facility]) Glucometer UNK 12/07/2019 12:00:00 AM EDT active Glucometer eCW1 ([facility]) Lancets - Lancets - 12/07/2019 12:00:00 AM EDT act mukesh Lancets - eCW1 ([facility]) Lancets - Lancets - 12/07/2019 12:00:00 AM EDT act mukesh Lancets - eCW1 ([facility]) Lancets - Lancets - 12/07/2019 12:00:00 AM EDT act mukesh Lancets - eCW1 ([facility]) Lancets - Lancets - 12/07/2019 12:00:00 AM EDT act mukesh Lancets - eCW1 ([facility]) Lancets - Lancets - 12/07/2019 12:00:00 AM EDT act mukesh Lancets - eCW1 ([facility]) Glucometer UNK 12/07/2019 12:00:00 AM EDT active Glucometer eCW1 ([facility]) Glucometer UNK 12/07/2019 12:00:00 AM EDT active Glucometer eCW1 ([facility]) Glucometer UNK 12/07/2019 12:00:00 AM EDT active Glucometer eCW1 ([facility]) Lancets - Lancets - 12/07/2019 12:00:00 AM EDT act mukesh Lancets - eCW1 ([facility]) Lancets - Lancets - 12/07/2019 12:00:00 AM EDT act mukesh Lancets - eCW1 ([facility]) Glucometer UNK 12/07/2019 12:00:00 AM EDT active Glucometer eCW1 ([facility]) Lancets - Lancets - 12/07/2019 12:00:00 AM EDT act mukesh Lancets - eCW1 ([facility]) Lancets - Lancets - 12/07/2019 12:00:00 AM EDT act mukesh Lancets - eCW1 ([facility]) Glucometer UNK 12/07/2019 12:00:00 AM EDT active Glucometer eCW1 ([facility]) Lancets - Lancets - 12/07/2019 12:00:00 AM EDT act mukesh Lancets - eCW1 ([facility]) Glucometer UNK 12/07/2019 12:00:00 AM EDT active Glucometer eCW1 ([facility]) Lancets - Lancets - 12/07/2019 12:00:00 AM EDT act mukesh Lancets - eCW1 ([facility]) Glucometer UNK 12/07/2019 12:00:00 AM EDT active Glucometer eCW1 ([facility]) Lancets - Lancets - 12/07/2019 12:00:00 AM EDT act mukesh Lancets - eCW1 ([facility]) Glucometer UNK 12/07/2019 12:00:00 AM EDT active Glucometer eCW1 ([facility]) Glucometer UNK 12/07/2019 12:00:00 AM EDT active Glucometer eCW1 ([facility]) Glucometer UNK 12/07/2019 12:00:00 AM EDT active Glucometer eCW1 ([facility]) Glucometer UNK 12/07/2019 12:00:00 AM EDT active Glucometer eCW1 ([facility]) Glucometer UNK 12/07/2019 12:00:00 AM EDT active Glucometer eCW1 ([facility]) Glucometer UNK 12/07/2019 12:00:00 AM EDT active Glucometer eCW1 ([facility]) Glucometer UNK 12/07/2019 12:00:00 AM EDT active Glucometer eCW1 ([facility]) Glucometer UNK 12/07/2019 12:00:00 AM EDT active Glucometer eCW1 ([facility]) Glucometer UNK 12/07/2019 12:00:00 AM EDT active Glucometer eCW1 ([facility]) Lancets - Lancets - 12/07/2019 12:00:00 AM EDT act mukesh Lancets - eCW1 ([facility]) Lancets - Lancets - 12/07/2019 12:00:00 AM EDT act mukesh Lancets - eCW1 ([facility]) Glucometer UNK 12/07/2019 12:00:00 AM EDT active Glucometer eCW1 ([facility]) Glucometer UNK 12/07/2019 12:00:00 AM EDT active Glucometer eCW1 ([facility]) Lancets - Lancets - 12/07/2019 12:00:00 AM EDT act mukesh Lancets - eCW1 ([facility]) Glucometer UNK 12/07/2019 12:00:00 AM EDT active Glucometer eCW1 ([facility]) Glucometer UNK 12/07/2019 12:00:00 AM EDT active Glucometer eCW1 ([facility]) Lancets - Lancets - 12/07/2019 12:00:00 AM EDT act mukesh Lancets - eCW1 ([facility]) Lancets - Lancets - 12/07/2019 12:00:00 AM EDT act mukesh Lancets - eCW1 ([facility]) Lancets - Lancets - 12/07/2019 12:00:00 AM EDT act mukesh Lancets - eCW1 ([facility]) Lancets - Lancets - 12/07/2019 12:00:00 AM EDT act mukesh Lancets - eCW1 ([facility]) Glucometer UNK 12/07/2019 12:00:00 AM EDT active Glucometer eCW1 ([facility]) Glucometer UNK 12/07/2019 12:00:00 AM EDT active Glucometer eCW1 ([facility]) Lancets - Lancets - 12/07/2019 12:00:00 AM EDT act mukesh Lancets - eCW1 ([facility]) Glucometer UNK 12/07/2019 12:00:00 AM EDT active Glucometer eCW1 ([facility]) Lancets - Lancets - 12/07/2019 12:00:00 AM EDT act mukesh Lancets - eCW1 ([facility]) Glucometer UNK 12/07/2019 12:00:00 AM EDT active Glucometer eCW1 ([facility]) Glucometer UNK 12/07/2019 12:00:00 AM EDT active Glucometer eCW1 ([facility]) Glucometer UNK 12/07/2019 12:00:00 AM EDT active Glucometer eCW1 ([facility]) Lancets - Lancets - 12/07/2019 12:00:00 AM EDT act mukesh Lancets - eCW1 ([facility]) Lancets - Lancets - 12/07/2019 12:00:00 AM EDT act mukesh Lancets - eCW1 ([facility]) Lancets - Lancets - 12/07/2019 12:00:00 AM EDT act mukesh Lancets - eCW1 ([facility]) Lancets - Lancets - 12/07/2019 12:00:00 AM EDT act mukesh Lancets - eCW1 ([facility]) Lancets - Lancets - 12/07/2019 12:00:00 AM EDT act mukesh Lancets - eCW1 ([facility]) Lancets - Lancets - 12/07/2019 12:00:00 AM EDT act mukesh Lancets - eCW1 ([facility]) Lancets - Lancets - 12/07/2019 12:00:00 AM EDT act mukesh Lancets - eCW1 ([facility]) Glucometer UNK 12/07/2019 12:00:00 AM EDT active Glucometer eCW1 ([facility]) Lancets - Lancets - 12/07/2019 12:00:00 AM EDT act mukesh Lancets - eCW1 ([facility]) Glucometer UNK 12/07/2019 12:00:00 AM EDT active Glucometer eCW1 ([facility]) Glucometer UNK 12/07/2019 12:00:00 AM EDT active Glucometer eCW1 ([facility]) Glucometer UNK 12/07/2019 12:00:00 AM EDT active Glucometer eCW1 ([facility]) Lancets - Lancets - 12/07/2019 12:00:00 AM EDT act mukesh Lancets - eCW1 ([facility]) Lancets - Lancets - 12/07/2019 12:00:00 AM EDT act mukesh Lancets - eCW1 ([facility]) Glucometer UNK 12/07/2019 12:00:00 AM EDT active Glucometer eCW1 ([facility]) Glucometer UNK 12/07/2019 12:00:00 AM EDT active Glucometer eCW1 ([facility]) Glucometer UNK 12/07/2019 12:00:00 AM EDT active Glucometer eCW1 ([facility]) Glucometer UNK 12/07/2019 12:00:00 AM EDT active Glucometer eCW1 ([facility]) Lancets - Lancets - 12/07/2019 12:00:00 AM EDT act mukesh Lancets - eCW1 ([facility]) Glucometer UNK 12/07/2019 12:00:00 AM EDT active Glucometer eCW1 ([facility]) Glucometer UNK 12/07/2019 12:00:00 AM EDT active Glucometer eCW1 ([facility]) Acetaminophen 325 MG / Hydrocodone [place] trate 5 MG Oral Tablet Hydrocodone- Acetaminophen 5-325 MG Hydrocodone-Acetaminophen 5-325 MG 12/03/2019 12:00:00 AM EDT 1.0 {tablet_as_needed} active Hydrocodone-Acetaminophen 5-325 MG eCW1 ([facility]) Acetaminophen 325 MG / Hydrocodone [place] trate 5 MG Oral Tablet Hydrocodone- Acetaminophen 5-325 MG Hydrocodone-Acetaminophen 5-325 MG 12/03/2019 12:00:00 AM EDT 1.0 {tablet_as_needed} active Hydrocodone-Acetaminophen 5-325 MG eCW1 ([facility]) Acetaminophen 325 MG / Hydrocodone [place] trate 5 MG Oral Tablet Hydrocodone- Acetaminophen 5-325 MG Hydrocodone-Acetaminophen 5-325 MG 12/03/2019 12:00:00 AM EDT 1.0 {tablet_as_needed} active Hydrocodone-Acetaminophen 5-325 MG eCW1 ([facility]) Acetaminophen 325 MG / Hydrocodone [place] trate 5 MG Oral Tablet Hydrocodone- Acetaminophen 5-325 MG Hydrocodone-Acetaminophen 5-325 MG 12/03/2019 12:00:00 AM EDT 1.0 {tablet_as_needed} active Hydrocodone-Acetaminophen 5-325 MG eCW1 ([facility]) Acetaminophen 325 MG / Hydrocodone [place] trate 5 MG Oral Tablet Hydrocodone- Acetaminophen 5-325 MG Hydrocodone-Acetaminophen 5-325 MG 12/03/2019 12:00:00 AM EDT 1.0 {tablet_as_needed} active Hydrocodone-Acetaminophen 5-325 MG eCW1 ([facility]) Acetaminophen 325 MG / Hydrocodone [place] trate 5 MG Oral Tablet Hydrocodone- Acetaminophen 5-325 MG Hydrocodone-Acetaminophen 5-325 MG 12/03/2019 12:00:00 AM EDT 1.0 {tablet_as_needed} active Hydrocodone-Acetaminophen 5-325 MG eCW1 ([facility]) Acetaminophen 325 MG / Hydrocodone [place] trate 5 MG Oral Tablet Hydrocodone- Acetaminophen 5-325 MG Hydrocodone-Acetaminophen 5-325 MG 12/03/2019 12:00:00 AM EDT 1.0 {tablet_as_needed} active Hydrocodone-Acetaminophen 5-325 MG eCW1 ([facility]) Acetaminophen 325 MG / Hydrocodone [place] trate 5 MG Oral Tablet Hydrocodone- Acetaminophen 5-325 MG Hydrocodone-Acetaminophen 5-325 MG 12/03/2019 12:00:00 AM EDT 1.0 {tablet_as_needed} active Hydrocodone-Acetaminophen 5-325 MG eCW1 ([facility]) Acetaminophen 325 MG / Hydrocodone [place] trate 5 MG Oral Tablet Hydrocodone- Acetaminophen 5-325 MG Hydrocodone-Acetaminophen 5-325 MG 12/03/2019 12:00:00 AM EDT 1.0 {tablet_as_needed} active Hydrocodone-Acetaminophen 5-325 MG eCW1 ([facility]) Acetaminophen 325 MG / Hydrocodone [place] trate 5 MG Oral Tablet Hydrocodone- Acetaminophen 5-325 MG Hydrocodone-Acetaminophen 5-325 MG 12/03/2019 12:00:00 AM EDT 1.0 {tablet_as_needed} active Hydrocodone-Acetaminophen 5-325 MG eCW1 ([facility]) Acetaminophen 325 MG / Hydrocodone [place] trate 5 MG Oral Tablet Hydrocodone- Acetaminophen 5-325 MG Hydrocodone-Acetaminophen 5-325 MG 12/03/2019 12:00:00 AM EDT 1.0 {tablet_as_needed} active Hydrocodone-Acetaminophen 5-325 MG eCW1 ([facility]) Acetaminophen 325 MG / Hydrocodone [place] trate 5 MG Oral Tablet Hydrocodone- Acetaminophen 5-325 MG Hydrocodone-Acetaminophen 5-325 MG 12/03/2019 12:00:00 AM EDT 1.0 {tablet_as_needed} active Hydrocodone-Acetaminophen 5-325 MG eCW1 ([facility]) Acetaminophen 325 MG / Hydrocodone [place] trate 5 MG Oral Tablet Hydrocodone- Acetaminophen 5-325 MG Hydrocodone-Acetaminophen 5-325 MG 12/03/2019 12:00:00 AM EDT 1.0 {tablet_as_needed} active Hydrocodone-Acetaminophen 5-325 MG eCW1 ([facility]) Acetaminophen 325 MG / Hydrocodone [place] trate 5 MG Oral Tablet Hydrocodone- Acetaminophen 5-325 MG Hydrocodone-Acetaminophen 5-325 MG 12/03/2019 12:00:00 AM EDT 1.0 {tablet_as_needed} active Hydrocodone-Acetaminophen 5-325 MG eCW1 ([facility]) Acetaminophen 325 MG / Hydrocodone [place] trate 5 MG Oral Tablet Hydrocodone- Acetaminophen 5-325 MG Hydrocodone-Acetaminophen 5-325 MG 12/03/2019 12:00:00 AM EDT 1.0 {tablet_as_needed} active Hydrocodone-Acetaminophen 5-325 MG eCW1 ([facility]) Acetaminophen 325 MG / Hydrocodone [place] trate 5 MG Oral Tablet Hydrocodone- Acetaminophen 5-325 MG Hydrocodone-Acetaminophen 5-325 MG 12/03/2019 12:00:00 AM EDT 1.0 {tablet_as_needed} active Hydrocodone-Acetaminophen 5-325 MG eCW1 ([facility]) Acetaminophen 325 MG / Hydrocodone [place] trate 5 MG Oral Tablet Hydrocodone- Acetaminophen 5-325 MG Hydrocodone-Acetaminophen 5-325 MG 12/03/2019 12:00:00 AM EDT 1.0 {tablet_as_needed} active Hydrocodone-Acetaminophen 5-325 MG eCW1 ([facility]) Acetaminophen 325 MG / Hydrocodone Brielle trate 5 MG Oral Tablet Hydrocodone- Acetaminophen 5-325 MG Hydrocodone-Acetaminophen 5-325 MG 12/03/2019 12:00:00 AM EDT 1.0 {tablet_as_needed} active Hydrocodone-Acetaminophen 5-325 MG eCW1 ([facility]) Acetaminophen 325 MG / Hydrocodone Brielle trate 5 MG Oral Tablet Hydrocodone- Acetaminophen 5-325 MG Hydrocodone-Acetaminophen 5-325 MG 12/03/2019 12:00:00 AM EDT 1.0 {tablet_as_needed} active Hydrocodone-Acetaminophen 5-325 MG eCW1 ([facility]) Acetaminophen 325 MG / Hydrocodone Brielle trate 5 MG Oral Tablet Hydrocodone- Acetaminophen 5-325 MG Hydrocodone-Acetaminophen 5-325 MG 12/03/2019 12:00:00 AM EDT 1.0 {tablet_as_needed} active Hydrocodone-Acetaminophen 5-325 MG eCW1 ([facility]) Acetaminophen 325 MG / Hydrocodone Brielle trate 5 MG Oral Tablet Hydrocodone- Acetaminophen 5-325 MG Hydrocodone-Acetaminophen 5-325 MG 12/03/2019 12:00:00 AM EDT 1.0 {tablet_as_needed} active Hydrocodone-Acetaminophen 5-325 MG eCW1 ([facility]) Acetaminophen 325 MG / Hydrocodone Brielle trate 5 MG Oral Tablet Hydrocodone- Acetaminophen 5-325 MG Hydrocodone-Acetaminophen 5-325 MG 12/03/2019 12:00:00 AM EDT 1.0 {tablet_as_needed} active Hydrocodone-Acetaminophen 5-325 MG eCW1 ([facility]) Acetaminophen 325 MG / Hydrocodone Brielle trate 5 MG Oral Tablet Hydrocodone- Acetaminophen 5-325 MG Hydrocodone-Acetaminophen 5-325 MG 12/03/2019 12:00:00 AM EDT 1.0 {tablet_as_needed} active Hydrocodone-Acetaminophen 5-325 MG eCW1 ([facility]) Acetaminophen 325 MG / Hydrocodone Brielle trate 5 MG Oral Tablet Hydrocodone- Acetaminophen 5-325 MG Hydrocodone-Acetaminophen 5-325 MG 12/03/2019 12:00:00 AM EDT 1.0 {tablet_as_needed} active Hydrocodone-Acetaminophen 5-325 MG eCW1 ([facility]) Acetaminophen 325 MG / Hydrocodone Brielle trate 5 MG Oral Tablet Hydrocodone- Acetaminophen 5-325 MG Hydrocodone-Acetaminophen 5-325 MG 12/03/2019 12:00:00 AM EDT 1.0 {tablet_as_needed} active Hydrocodone-Acetaminophen 5-325 MG eCW1 ([facility]) Acetaminophen 325 MG / Hydrocodone Brielle trate 5 MG Oral Tablet Hydrocodone- Acetaminophen 5-325 MG Hydrocodone-Acetaminophen 5-325 MG 12/03/2019 12:00:00 AM EDT 1.0 {tablet_as_needed} active Hydrocodone-Acetaminophen 5-325 MG eCW1 ([facility]) Acetaminophen 325 MG / Hydrocodone Brielle trate 5 MG Oral Tablet Hydrocodone- Acetaminophen 5-325 MG Hydrocodone-Acetaminophen 5-325 MG 12/03/2019 12:00:00 AM EDT 1.0 {tablet_as_needed} active Hydrocodone-Acetaminophen 5-325 MG eCW1 ([facility]) gabapentin 100 MG Oral Capsule gabapentin (NEURONTIN) 100 MG capsule gabapentin (NEURONTIN) 100 MG capsule 11/19/2019 12:00:00 AM EDT 100 mg Oral active Take 100 mg by mouth 2 (two) times a day [facility] potassium chloride SA (K-DUR,KLOR-CON) 10 MEQ tablet 88516-1 11-2511/19/2019 12:00:00 AM EDT 10 meq Oral aborted Take 10 mEq by mouth 2 (two) times a day [facility] torsemide 20 MG Oral Tablet torsemide (DEMADEX) 20 MG tablet torsemide (DEMADEX) 20 MG tablet 11/19/2019 12:00:00 AM EDT 20 mg abor alfred 20 mg 3 (three) times a day [facility] dapagliflozin 5 MG Oral Tablet [Farxiga] FARXIGA 5 MG TABS F ARXIGA 5 MG TABS 11/10/2019 12:00:00 AM EDT aborted [facility] 24 HR Metformin hydrochloride 500 MG Ext ended Release Oral Tablet metFORMIN (GLUCOPHATE-XR) 500 MG 24 hr tablet metFORMIN (GLUCOPHATE-XR) 500 MG 24 hr tablet 11/02/2019 12:00:00 AM EDT aborted [facility] carvedilol 3.125 MG Oral Tablet carvedilol (COREG) 3.1 25 MG tablet carvedilol (COREG) 3.125 MG tablet 09/23/2019 12:00:00 AM EDT 3.125 mg Oral aborted Coronary artery disease due to calcified coronary lesion Take 1 tablet (3.125 mg total) by mouth 2 (two) times a day [facility] Coronary artery disease due to calcified coronary lesion Nystatin 914365 UNT/ML Oral Suspension n ystatin (MYCOSTATIN) 950966 UNIT/ML suspension nystatin (MYCOSTATIN) 772165 UNIT/ML suspension 2019 12:00:00 AM EDT aborted [facility] Losartan Potassium 100 MG Oral Tablet losartan (COZAAR ) 100 MG tablet losartan (COZAAR) 100 MG tablet 12/10/2018 12:00:00 AM EDT 0.75 {tbl} Oral aborted Take 0.75 tablets by mouth once daily [facility] dapagliflozin 10 MG Oral Tablet [Farxiga] FARXIGA 10 MG TABS FARXIGA 10 MG TABS 10/31/2018 12:00:00 AM EDT 0.5 {tbl} Oral aborted Take 0.5 tablets by mouth once daily [facility] Furosemide 20 MG Oral Tablet furosemide (LASIX) 20 MG tablet furosemide (LASIX) 20 MG tablet 06/04/2018 12:00:00 AM EDT 1 {tbl} Oral abor alfred Take 1 tablet by mouth once daily [facility] 3 ML Insulin Glargine 100 UNT/ML Pen Inj jennifer Insulin Glargine (LANTUS SOLOSTAR) 100 UNIT/ML SOPN Insulin Glargine (LANTUS SOLOSTAR) 100 UNIT/ML SOPN 12:00:00 AM EDT 25 U Subcutaneous aborted Inject 25 Units under the skin daily [facility] [place]-3 Acid Ethyl Esters (SHELTER) 1000 MG Oral Capsule omega-3 acid ethyl esters (LOVAZA) 1 g capsule omega-3 acid ethyl esters (LOVAZA) 1 g capsule 011 12:00:00 AM EDT Oral aborted Take by mouth [facility] Insurance Providers Payer name Policy type / Coverage type Policy ID Covered alliance party ID Covered alliance party's relationship to kathleen Policy Kathleen Plan Information [place] [id number] [place] [id number] 2 [id number] [place] [id number] [facility] Medigap Part B [id number] Self MEDICAID [id number] SP [id number] [place] Medig[place] Part B [id number] Self [facility] U [id number] Self [id number] [facility] [id number] SP [id number] [facility] [id number] SP [id number] MEDICARE BLUE PPO 306 [id number] SP [id number] MEDICARE COMPLETE [id number] SP [id number] Blue Shield [facility] Advantage Medigap Part B [id number] Self MEDICARE COMPLETE [id number] SP [id number] MEDICARE COMPLETE [id number] SP [id number] [facility] [id number] SP [id number] MEDICARE [id number] [place] [id number] EXCELLUS MEDICARE BLUE PPO G [id number] Self [id number] [facility] ([facility]) Commercial [id number] Self Medicare S [id number] S [id number] A Managed Care - Community Plan [facility] P [id number] S [id number] Unitedhealthcare Secure Horizons P [id number] S [id number] Medicare S [id number] S [id number] [facility]iz[facility] P [id number] S [id number] MEDICARE COMPLETE [id number] SP [id number] MEDICARE COMPLETE [id number] SP [id number] Today's Options Commercial [id number] Self [id number] TODA[employer] OPTIONS [id number] SP [id number] [employer] Commercial [id number] .1.693790.3.227.99.991.9 0701.0 Self [id number] [facility] Options Medigap Part B [id number] .[id number] Self 3 [id number] [employer] Commercial [id number] .1.889764.3.227.99.991.9 0701.0 Self [id number] [employer] Commercial [id number] .1.161059.3.227.99.991.9 0701.0 Self [id number] [facility] Options Medigap Part B [id number] .1.55[id number] Self 3 [id number] [employer] Commercial [id number] 2.16.840.1.970001.3.227.99.991.9 0701.0 Self [id number] [facility] Options [facility] Part B [id number]9.991.82056.0 Self 3 [id number] [employer] Commercial [id number] 2.16.840.1.701704.3.227.99.991.9 0701.0 Self [id number] [employer] Commercial [id number] 2.16.840.1.637072.3.227.99.991.9 0701.0 Self [id number] [employer] Commercial [id number] 2.16.840.1.587345.3.227.99.991.9 0701.0 Self [id number] [facility] [id number]9.991.95874.0 Self [id number] [facility] [id number] [place] [id number] 2 [employer] [id number] SP [id number] [employer] Commercial [id number] MRN.[id number] Self [id number] [employer] Commercial [id number] 2.16.840.1.992190.3.227.99.991.61033.0 Self [id number] HU[employer]NA MEDICARE [id number] [place] [id number] HUMANA MEDICARE [id number] [place] [id number] HUMANA MEDICARE [id number] [place] [id number] HUMANA MEDICARE [id number] xxxxxxxxx [phone] HUMANA MEDICARE [id number] [place] [id number] AETNA MEDICARE Medicare [id number] AETNA MEDICARE [id number] [place] [id number] ANSI-Not a Secondary Insurance [id number] ANSI-Commercial 6024ex2c-jcg5-5b75-[id number] 8754nr5t-wer8-7c56-m9c0-3t105i52v5h9 ANSI-Commercial 9118wad4-yjhz-77jm-83b8-277pj6057uc1 5851sfg2-fejd-70of-[id number] [employer] Gold/Medicare Commercial [id number].[id number] Self [id number] ANSI-Commercial [id number]cy966f2c90l kl0v5900-44o7-42u3-34r6-5ex536w7j10i ANSI-Medicare Part B [id number]-27k4-pgx8-gaaiwvty5204 s8i0v069-4rzf-77d8-zdi1-wykftrlx6040 ANSI-Not a Secondary Insurance [id number] [id number]8z3 ANSI-Health Maintenance Organization (HM O) [id number]-045o-2093o783e58z 40n144od-5k91-49rx-145y-3941f916t08b ANSI-Medicare Part B [id number]-233c-w34u-ye87954jv389 92p85f03-l29b-055j-j59y-ck01810ye347 ANSI-Commercial 359416c2-3678-5527-z6w1-8svvq07n9545 042154n7-7893-3623-j7b5-2dusu80y0137 ANSI-Medicare Part B [id number]-jf1d-6w11-50u7-2sv8b83308g7 0lq6kezk-gy1s-3j10-85x6-2wp8r13825f6 ANSI-Medicare Part B [id number]-7n2b-ns41-1ar8u0577m68 5r2206n8-011c-4o9y-kn55-5lk2h6080u22 ANSI-Health Maintenance Organization ( O) hj46w8gn-934c-9178-a236-8ss48cti2h03 qq87p9nm-054t-0962-y263-0ga11gov2z24 ANSI-Commercial 829ky063-176n-7w74-9350-886j7z841178 616zi411-359c-2o48-4070-700m8f092039 [facility]-Health Maintenance Organization ( O) 59ysa3h1-86m6-6k57-48l8-a7i67g1np802 92xrs2z3-15b8-2f19-59y9-n1h83g8on637 ANSI-Medicare Part B [id number]-m645-7798-mt88-hr2imih6c9l1 6j45v430-h800-3066-pn55-wb4aztg1h2m4 ANSI-Medicare Part B [id number]-wp9i-1xuj-0970-8kr353508704 5y1km468-dd0q-6lwr-7886-3lq215353320 ANSI-Medicare Part B 703ubb36-903b-47r2-s022-3q96863d6x1w 470fvf92-315n-25z6-y511-5c38618m8n5p ANSI-Commercial 532sh15y-9555-3769-25ii-4476423h7301 294ik50b-3037-7847-47si-8161793p9770 [facility] [id number]-u4nd-cor80gm27943 e1309448-1104-97j0-s9fj-sax55lh21476 ANSI-Medicare Part B 6v3298s1-0fr3-7994-a71n-954qh9i2ox0f 3b6692s7-9li4-8600-x30z-746lu1x7ci4k ANSI-Commercial 19e3138d-gcbh-2242-f12j-75904iq880k7 58c8566g-wjmt-0143-j17h-74527ip949x6 ANSI-Medicare Part B 2er81y06-888s-004b-7yw8-614x18541kq4 7oe84w43-860x-273a-3ze9-544g98671mk6 ANSI-Health Maintenance Organization ( O) 32842q24-a431-7rjx-x15e-0q30htgm5702 53393q62-y226-9nof-c24m-0b27hmqe3456 ANSI-Medicare Part B 28zscon1-d7o9-96d5-91iy-skk645w5o9j4 70luexa0-f9p2-71u0-38tv-anf165m5s3u0 ANSI-Commercial hh7o8z1r-fo77-8112-38kl-otz3v8737372 uz2r3x4c-xd46-9601-49tw-zqp2g6464248 ANSI-Medicare Part B y796f8q7-7486-6iv3-80ud-5pg1e1978sm8 j383h3c2-0327-9nb3-91lu-2ar6d3109ri8 [facility] ( O) [id number]-g03a-3t51-a2b6-221y09827y68 075946b5-y49r-0p14-o4s0-323f09889t92 ANSI-Medicare Part B l28r85hh-5s79-1903-99lz-8rfn8jjma298 y95b01rg-8e44-2968-97sn-4obg1bwxz878 ANSI-Medicare Part B 01f2973t-1i5m-14nj-19e9-4lsk89m0bine 64y2574f-2r8l-08ch-58m1-1nui06h7smjj [facility] ( O) 1d2l7413-8d2e-2i83-6o80-260o882522i1 7t8d4604-3r6x-9p69-5m45-536q845552w1 ANSI-Medicare Part B ow86315h-2448-95eq-7bc0-6mtm45n45944 bs45700p-8327-34jj-7ks8-8bxr23q62275 ANSI-Commercial 7pk95w70-dcfz-4x47-0498-13gy7733lmll 3ld43m80-myqa-7a62-4855-23ae7817ixds ANSI-Health Maintenance Organization ( O) mc26569x-55b9-267e-n878-0w8w18lhpv96 tu27135p-45a8-448g-a073-8v7n15xtry47 ANSI-Medicare Part B 06s7131j-d8az-3ik2-2r44-6rf395w32p74 96z1493m-m4aa-9kl9-5a66-9gn437g09h51 ANSI-Medicare Part B 16zgh951-28l2-5g3t-3112-489z75a1s230 98umc503-69g5-7n9m-9102-160y20o5l692 ANSI-Commercial 20c288i0-31t6-1n7b-e398-5e469744r753 89y941g5-89d3-9u3i-a056-7x793544p000 ANSI-Medicare Part B l66g578d-21uo-495y-8i77-m5k4p0q4064a v69h532a-04yi-706h-7b64-l6s9k4y1879q ANSI-Medicare Part B 84gts7gd-1374-8235-v1z9-uqp91j2fp1s5 24obj9xc-9129-4841-s0o5-pen20v5wy7b1 ANSI-Commercial lk089rib-52p1-08q4-ru76-on3f6by80x92 xy654zyn-23p9-87c0-os72-rc2n6yt60q16 ANSI-Health Maintenance Organization ( O) 217941un-5z8t-44h6-td53-76586v941995 099252mc-4l0w-76u5-pe05-16188l963339 [employer] Commercial [id number] 2.16.840.1.758505.3.227.99.8646.50099.0 Self [id number] [employer] [id number] ANSI-Medicare Part B 86268ko7-n497-9x8e-k514-6z8808d25251 37904zv1-p358-7b4q-m568-0d1584q37124 ANSI-Commercial z9x9x534-opoa-2557-e8as-pb8l0rg4t672 f3p9h685-sutr-9470-c6bb-rq5h1is4i056 ANSI-Medicare Part B 13bp8oh9-8wn0-8upj-r9bn-bqpg2ep4w386 29be9tn1-7bz0-3bfp-e8gf-qocj1xa7g626 ANSI-Health Maintenance Organization ( O) 70408x34-5l18-5d80-3b5b-6336fvzpq701 07755h87-4t49-8f11-8v1x-8885lctsy301 ANSI-Medicare Part B 686a9455-5o29-9879-15ky-ys6u9589076j 716g8352-8z27-8695-78im-sx0z1869112o ANSI-Health Maintenance Organization ( O) 0l4x8379-k245-496d-q418-6ev9800xhmkj 3z8w6602-z586-240t-q997-4eu0970rqbxt ANSI-Commercial 2a828w53-8991-32vh-51u1-hc46sqdp4u60 8t672d53-1312-61np-88l6-iz75ubeo0i72 ANSI-Medicare Part B f1uk7496-67f4-6u14-387o-20i480tbb4j7 o9ky0385-70q5-5t05-081c-20w314qjl0i5 ANSI-Medicare Part B 42134z98-78u5-6won-t24t-8ovga3553sml 70030r74-28y0-5zlw-k46c-6imnt2745mrl [facility] ( O) 21d40k4q-826g-54q5-6649-2s5o0142qv49 61k76s4f-119i-58n1-4761-4m9l4538wj07 ANSI-Medicare Part B 638w764u-73f2-9sy1-oau3-053e224s181a 996d604q-71n3-4uu6-vyq3-536v093i245l ANSI-Commercial e0300l08-247g-8f8q-cg32-a7u69341bkv1 y4325k65-793c-4h4t-jp80-e2z95230cyt7 ANSI-Medicare Part B 851k2bli-w8vb-5644-530t-xz7m505u4khm 236l5rhp-b1mr-2562-892k-qe0j875t1ttz [facility] ( O) fw6m2jh2-pt55-4n83-r1q8-g0154a22m2b8 fl9i2ie6-pg41-9l02-b2z0-x7530c77v7i3 [facility] 9ob3ddz4-aj52-6t95-m45y-vv5h2z02qadq 2ej0yfm5-na04-1d25-r42h-fo7j4l11plmh ANSI-Commercial 24rf9x2i-6b7q-8672-bm98-387j0t82c221 26od1b3e-9e6a-7845-mi47-513d1c26r240 ANSI-Medicare Part B 62b2480n-2211-4sm9-347k-98a72br3z563 48h9008s-4819-2om6-124c-93z23fu7k750 ANSI-Commercial 23w2k30n-f39v-7aiw-00d0-6036u7438jtf 84d3y93k-h04i-0xml-55j6-2030z2964sex ANSI-Medicare Part B 83070z98-r985-48ef-cy75-9ko64j9p3406 20415z59-a000-66rv-ie43-9lj75d9k8983 [facility]-Health Maintenance Organization ( O) ri8fip48-39ia-5h91-m3hm-e9ur7w22s7kn vm9zha98-63dc-3j98-r4yd-d6kc5z52e3ir ANSI-Commercial 9ar61yu4-6786-68m7-4e30-g7g1l9z29u9g 0sc81br6-6437-95v8-7z22-r6y0n4w35x0u ANSI-Medicare Part B y037ns6t-8814-1n81-0411-hi8x1a2wuy9i z234cs1s-7874-7r01-5409-kd6s9x4zqh1y [facility]-Health Maintenance Organization ( O) 73b48it8-7209-33h5-o2bj-a59c91435y97 16m91vq8-7534-85i5-w2et-r64a95545t58 ANSI-Medicare Part B 87j094jb-2nm7-7081-037q-8u677r6rz3e7 79u670vo-4tk4-6934-555b-4l266e0ks3e0 [employer] [facility] Commercial [id number] 2.16.840.1.253955.3.227.99.8646.16370.0 [facility] [id number] ANSI-Medicare Part B 7v0ffyq8-bc27-32ah-1489-y44nlt66g3t7 0i9xugu2-dk64-12cm-0663-d34hkf84x4v3 [facility]-Health Maintenance Organization ( O) 55v444nw-o7f1-82sf-f68k-o3neu92d526h 05h859uw-s3v2-15mx-y42j-o5xdf39o084a ANSI-Medicare Part B 4ie11066-2l8x-7133-82l1-9013qkp8ha9k 6ad55416-3p6b-5415-24g8-3082squ8aq9g ANSI-Commercial 89mq2506-4640-966r-2dk6-i9159uyh6z05 62jy8334-7663-429s-1fu2-u4316kbc2p23 ANSI-Medicare Part B n255f5sw-u579-7gp0-2117-916821917d6v g448x0dw-z079-4tm3-5608-339212033n8g ANSI-Medicare Part B 95382281-3l65-0675-7424-1541pa99su5v 65955982-5u21-5784-9019-8341ru45dp5y ANSI-Commercial 056ix8s8-12t9-9q2d-7n95-9fv339g08u9r 560ko9n4-68t1-9o0j-3h55-5ua914p44v9r ANSI-Health Maintenance Organization ( O) 9010tu95-l6w1-5377-25u2-qr301v2h7440 8345mk35-q5e3-4401-56i5-ba919q2z0719 ANSI-Health Maintenance Organization ( O) x221w56j-2429-764t-6771-dc4f12905yyj v844u34f-3808-588o-7902-pa7d41700gez ANSI-Commercial d41t1315-9812-26yp-l393-970iw87s86j1 t81b9514-8590-02cm-r930-417hr80a86a3 ANSI-Medicare Part B 182p318i-h53d-917a-2fx5-w4u49s7lovo4 989q730o-c69q-824z-6oq7-u9q51k0miee9 ANSI-Medicare Part B 245gz72h-w40a-5v07-e68r-h93282rj2pq6 500ww04h-c21y-8t30-e45i-y05523kg2ip6 [employer] Commercial [id number] 2.16.840.1.632943.3.227.99.991.6 9568.0 Self [id number] [facility] O [id number] S [id number] ANSI-Health Maintenance Organization ( O) 25009924-31p9-7c1b-590y-y5f01110ipl1 86533880-09s8-8m1i-604v-t1j62234zst3 ANSI-Commercial o1v9583w-1t2j-9132-v2gr-6jq5835u1np2 w8i1966r-7e0x-0635-r7oc-0ak4554k5rw9 ANSI-Medicare Part B h3ul872u-m411-456s-64w4-00rg49245y68 j6uo162r-x719-615u-11x2-02ir59071v60 ANSI-Medicare Part B 5p0e01qy-z5l9-1e01-o15m-o8wlez93ao0w 6u1g91fn-j1s1-6k60-i79w-v2eqhe29oy4f ANSI-Commercial 137y10bl-7ux9-706i-7123-01l6561rn75i 092r98cv-5pr2-693v-7342-08a3609uw32x ANSI-Medicare Part B up94972n-w6vs-603f-j547-088c32yz6g5s nx59633z-i4hj-866j-b617-209z23dh2i5h ANSI-Medicare Part B 877u6u79-193t-1kcr-1kk7-9c41tcbdw8tz 915i7d67-466s-0rgl-2cb7-7x96aheti7lc ANSI-Health Maintenance Organization ( O) l0c7541l-9nxu-2i67-q41m-23510j23899v f8z3460y-4jqr-5r99-i85k-26949u77225b ANSI-Medicare Part B w1554685-vwtf-0270-252p-4vlc51289672 o3644775-uwwd-2654-483t-2ovn17262675 ANSI-Commercial 367677y9-938o-6294-bz3a-18620u7f35zc 563215u2-780n-6453-jy9k-10144s5m04hu ANS-Health Maintenance Organization ( O) 907y6817-3127-6f19-y2w9-zeo3a817558e 164x2318-8055-3z85-a4n4-anr2s625065g ANSI-Medicare Part B 960r716m-a253-806p-p254-ef2988d4618c 963q976n-y352-854f-t758-qr2569m8700d ANSI-Medicare Part B c68j4t16-v185-38c9-vq5h-8307538f3c9a w02y6n94-p402-79y6-ze1d-8366059i2f7g ANSI-Medicare Part B 0288vh7q-343l-2i56-4ck8-1e449783p7g8 7998wl7k-488a-9w30-9cs5-9y693620b2h1 ANSI-Commercial 14k74545-f9hm-9763-0942-smb3140140o9 28z26692-c0dy-8890-5750-yvu2495678g7 ANSI-Medicare Part B 1a0g8wq7-g05k-90e7-7k8e-14d82i4yi6r2 2z6k5gd6-c81m-21g2-9s7w-78f88m1cc2u8 ANSI-Medicare Part B x03obyv3-hqtp-854x-x64j-5n96957y9j0t n38wqcw0-tiwr-588f-q00f-3i95490i0q7z ANSI-Commercial 02crjc4o-74g8-47ye-b808-l1o910955964 52mmwa2b-85k3-21xv-x088-g9m168925392 ANSI-Medicare Part B 6kb29ymf-5ae8-13qw-i3x9-40yslj83vy16 1qe49qea-4zu2-14ed-n7k9-11ubcj22pm51 ANSI-Medicare Part B q97o8011-t317-6p0d-fp12-o2661329qajt k22y8108-n215-8t2g-ss28-x9067981kpmz ANSI-Commercial zeu2u2pl-324j-7s05-9x14-f56v8156rdk1 afg1e0rd-830r-3i34-5t14-a39i6182yqv3 ANSI-Commercial 7knp8825-s70i-7870-572z-qxf5ro7r3364 5vai6263-c26l-1277-660m-mnc9rt9v9095 ANSI-Medicare Part B 6y99gpzd-2941-16ot-8ed3-i45c53lx541m 7n32eojp-1239-29ce-3aj1-e66x79bw982t ANSI-Medicare Part B 3034go3b-1z36-9o88-8r00-30845m1k15ev 6159de6r-5e22-6a97-6q09-62857m8a34kh ANSI-Medicare Part B 9xfu2wu5-3e3o-7396-23w5-lu5a1r0n0648 5qnv6lu1-8i6j-8287-27w0-db6g1i9i9888 ANSI-Commercial q6k42c97-2g3m-86a1-6729-4c3k3935689j t9d10l10-9f8e-75o6-0403-9s5b7700135v ANSI-Medicare Part B 1h4q9cj7-5703-92i8-vzr9-376v713y2i3q 8i0k1pf1-9859-09i6-ujh2-131r493k8a8a [employer] O [id number] S [id number] ANSI-Medicare Part B 9639aj3m-0142-560w-it50-7313k0625f01 6331tu8w-7989-591u-yi10-5217v3627i33 ANSI-Medicare Part B 0j5a9543-8602-8968-3rt1-587b83212382 1r9n5460-0221-5336-8sj3-753f76502350 ANSI-Commercial 1vcni5v5-7uui-3j3t-w204-w04j71v2q1ka 9fani5t3-8piw-9r0i-l147-u81s49m3o1xq ANSI-Medicare Part B 46x7dy6d-7qni-9937-kwq0-wagkv81j00xo 78h9ow0y-9cjs-9911-xnk7-tbeyk18d95vq ANSI-Commercial dr641195-8x6w-128z-169r-e7b0387i82q0 js659524-4p4g-509q-120z-y4d7216i08a2 ANSI-Medicare Part B 6g91wh2p-zau1-693j-o41i-9lf4k2hy310m 9i74lc9v-exg6-612e-f72b-3fi5e8vn640n ANSI-Medicare Part B 14d29u15-6u1d-761h-d679-l038g48n6653 52a07y29-2u5g-686o-x730-g708k82l5333 ANSI-Commercial 7935fm70-0kq0-0j3g-702p-97v094u05fs5 6590xf59-4gm6-3g5i-442e-07w348x92tn6 ANSI-Medicare Part B u9o27h7u-g8dt-9r17-yl81-891dv1e80ut6 r5y00s0j-o0uo-1c43-eb19-483lg7l70wp8 ANSI-Commercial 3842zim7-e6hl-7kp2-d9p9-fsnt85c53352 5877xkv4-f6mh-5hb5-a4d3-zcad98t11174 ANSI-Medicare Part B i4r521b4-93w9-4857-1137-0708256252b0 z6e487k7-83y1-0252-5045-1786139364f4 ANSI-Medicare Part B 47n1z097-49th-328o-1zg9-z259396kem2o 84y2i431-76qg-227m-0uu1-u893987xpr7c ANSI-Medicare Part B 117l97ey-6fup-12t0-861d-65643f074yb2 772r99oj-8xul-04d4-451q-61543e276ak8 ANSI-Commercial 4z7480u0-3181-29dy-d916-d3zdz661387s 9h6888l0-6897-26cw-g208-e4thg777346e ANSI-Medicare Part B 4781ce38-0i88-4z23-3b8h-7886e5884896 7699jn44-5a23-6o13-6r6s-2856t0141417 ANSI-Medicare Part B 8j075753-1d1k-58f3-0094-65597vef12k4 8i631760-7a2o-09m2-7711-18338dqy83p4 ANSI-Medicare Part B 078f9u1a-4042-4531-q045-85ij3l750u1h 467s5x0a-5878-4234-f677-00qo4s216v1y ANSI-Commercial v96as5l5-08y1-7pnk-o7u8-167vl519nofb x27ek4x1-65q1-2tbp-y4e0-479zo012jwkc ANSI-Medicare Part B 75tc41tx-s87n-772q-x1w3-ue36j8l3bq98 23nt10ph-l51g-722y-k5j1-bq84x8q4mr75 ANSI-Medicare Part B 45y1b6r4-z3jp-10zu-0o29-5u7536w462ae 00m6j4u7-j4bt-97ep-7u74-5q7444j638fu ANSI-Commercial 0xh670k4-f11q-04s2-8jzm-f16xs1047h59 8bo530p2-e46h-86x0-3nof-i92zx4084l91 ANSI-Commercial 97559tvt-5r3l-9f2y-9434-2p56e96d1340 97950ces-0i4u-4a7l-6147-5y34w10q0547 ANSI-Medicare Part B 4qi11601-57ue-64h6-t0o1-x40461762g34 4zm35686-51kc-63b5-m6u4-w08804542e46 ANSI-Medicare Part B x4uu722f-1x29-077v-66c3-0598l6c558e5 z8be582n-1u22-068b-19o8-0296y7w447t0 ANSI-Medicare Part B y66kz29j-59x9-0w7p-ft37-465f84272ndh i17gc49n-18p9-3b4x-qi79-719z46987suk ANSI-Medicare Part B 32i05039-bc3b-5179-q10y-1742p9556m69 84i99996-vw2n-4564-g37y-1968r1408m19 ANSI-Commercial o5199719-v67n-1781-7cgc-4a3t64ze9589 x3608221-i29b-3523-7qwi-0t9n43gl0747 ANSI-Commercial ge6w9y49-hxl7-2mbh-j492-j99315z16293 zq2a0a07-rxu3-9kre-g630-q00856k53377 ANSI-Medicare Part B 4sx7k894-20oy-63v2-434z-0l010nb6nh30 9yj8a249-89lx-01f1-468z-7e728xo4tz85 ANSI-Medicare Part B 5zx2vc60-2um7-4899-8243-mivs55m50m0m 6ql9it37-2fy5-4195-8545-yeas01l95h8j ANSI-Medicare Part B 282p836n-415n-489z-240a-556q707e1ro4 114i467f-054h-668b-577t-879n032l6qx8 ANSI-Commercial l3s17444-70sr-0g4u-3153-73i0319a74ht c9g67579-01jf-6t4p-0337-42p7378u64gv ANSI-Medicare Part B y81x5b57-6059-56h4-54w9-4g2v0715n811 j73c4r31-7497-35a5-67c3-9j3z3990d705 ANSI-Medicare Part B 2529a398-e832-0ub6-t909-72kmk650msp6 6913p650-v487-3qw4-x813-27nvg070nbs5 ANSI-Commercial 5gs1ulqt-4j91-38l7-z36e-q1n1kaw945q5 9um1rlbb-3r24-27m0-d37g-t7w6kis088a1 ANSI-Medicare Part B 6b851gvv-qx4s-319t-k1of-181204d2m87c 1t809eom-rp2l-836m-u4jw-248719r6w66d ANSI-Medicare Part B wb486543-446l-22x8-h1q2-05m5w661sbi1 df725058-933n-48l1-i4j4-36a1l938mfa1 ANSI-Medicare Part B 848o4396-5951-2146-r8d9-c6kamhtos01o 170m7159-8425-8469-k2c6-f9ocniewl20y ANSI-Commercial 6xn6e4oy-q3a9-6w62-uqsh-y3p6mtb40f40 7ye0z8cc-k2y0-6b71-vozt-i9o9wga63e86 ANSI-Medicare Part B 491p302c-t67w-7s7j-l6ul-92dp87559k5o 138i159i-a44f-6z1k-i7dm-98sw10385z0j ANSI-Medicare Part B 437x0ke8-7p1e-0xo5-2330-f3k215c8x101 059c7or2-5s2a-9zk3-4916-m3j194r9y985 ANSI-Commercial n061497i-11y0-310f-f5z5-01i60p87fk63 x985888m-23z6-840u-r9g7-11q54z11fo79 ANSI-Medicare Part B r3633761-wc61-8l9k-7zt0-r0oi0584d817 c0223045-ji41-2y0r-9pn2-n1mo9562f068 ANSI-Commercial a694qd9y-lw3f-80y0-9z3j-485c88l638i6 z946my1z-pn3h-36y4-0c2a-539r03a366p6 ANSI-Medicare Part B qfn471so-2w0k-14ts-w271-35353ijv924e mel561vv-8g0h-62aa-h500-15034lkw238w ANSI-Medicare Part B p21kz530-fpmk-7sn8-q9uk-6d1i159y1177 o87mb913-sgls-0tp6-y5lt-7v0o727s2503 ANSI-Medicare Part B 71nho73p-a1ug-9640-rn36-93925zvfad16 88gvm52a-d1fq-5280-je22-16069rrbsj00 ANSI-Commercial 783189w0-h651-4332-m072-8i8dw642g4z2 411693z7-b919-4660-k262-6p7mc632q8n6 ANSI-Medicare Part B 1pwz295i-178m-52hh-8053-56o39d24r87z 1jdg101m-299j-79zg-3246-95w23g27l80i ANSI-Commercial u3e31m97-2687-627o-jo9n-b294400u2m9z c0r27n78-1988-398u-cb3l-j478421z4y0m ANSI-Medicare Part B iqsg9z13-a1xq-75g5-klcx-84ukupgffbe3 ulxv3l17-t6dh-93x0-uiej-01luddtbpxi9 ANSI-Medicare Part B d90m71nu-16jr-06h7-762k-c1618z862u83 n63r84fl-95ng-28o1-979q-j4626j561h65 ANSI-Commercial pyj8g5u8-6k1f-44x8-h41v-3nyce0d75885 qxx0v3f8-9h1l-64x0-l02w-6urxs6b28188 ANSI-Medicare Part B k8ar15v1-66u6-14ap-3w72-62048ohs3080 s9go08v7-13g8-28ev-5j80-73352jva6631 ANSI-Commercial x40643p7-923o-0430-z284-164850899564 z11164k7-247b-9088-j539-833902555384 ANSI-Medicare Part B h4fm6wjz-3522-6b80-4984-9z16x1p2jg75 b6uy4lka-3562-1j42-4795-0f28m3k3ko13 ANSI-Medicare Part B u4v243l6-2wm6-5986-8026-pe5z38y7709l v5f231h0-7ha8-1656-9731-re5a52b5972l ANSI-Medicare Part B 00l1j774-0f70-8bg5-0738-2a8u8citiav6 29t8o847-7x48-8cl9-4161-5t4q2rnuuiu5 ANSI-Medicare Part B 9674q7z7-5440-6247-6vob-v7co566sid53 8472m0g6-9023-5456-5srt-t2af362unm06 ANSI-Commercial 7682uo10-d80s-63k8-9753-wpu822mg2851 9723jx97-x41g-50y0-2351-qwk226ho0341 ANSI-Commercial n8535g5v-1f7d-0028-a622-7po767h8a739 a4568l8b-1s1n-2151-l150-3eu091b0o623 ANSI-Medicare Part B yg6s0138-9458-8802-19i3-o80u172e1hc7 xk0g7797-9381-0615-90v3-e11f268b7uj6 ANSI-Medicare Part B 92cf3v63-p2e5-06d4-c165-5257avz29odr 96dl1q47-f9s6-82i2-m746-8428wbj68yja ANSI-Commercial q5ri90r7-22z6-3794-l416-q100l6n9693f g1ql65w6-57e6-5745-u058-g745k9x8291v ANSI-Medicare Part B pj60yg93-om78-8648-hm01-35ww843707x0 aa88so24-zu59-7518-vh74-87hm191718u6 ANSI-Medicare Part B [id number] MEDICARE [id number] A ANSI-Medicare Part B [id number] ANSI-Commercial [id number] ANSI-Medicare Part B [id number] ANSI-Medicare Part B [id number] ANSI-Medicare Part B [id number] ANSI-Commercial [id number] ANSI-Commercial [id number] ANSI-Medicare Part B [id number] ANSI-Medicare Part B [id number] ANSI-Medicare Part B [id number] ANSI-Commercial [id number] ANSI-Medicare Part B [id number] AARP HE[employer] CARE OPTIONS [id number] SP [id number] A[employer] HE[employer] C[employer] OPTIONS [id number] SP [id number] A[employer] HE[employer] C[employer] OPTIONS [id number] SP [id number] AARP O [id number] S [id number] Todays Options Commercial [id number] Self [id number] AARP O [id number] S [id number] TODAYS OPTION MEDICARE [id number] Mariluz [employer] Options Commercial [id number] Self [id number] TODAYS OPTION MEDICARE PI PI AARP HE[employer] CARE OPTIONS [id number] SP [id number] TODAYS OPTION MEDICARE [id number] Mariluz [id number] [employer] Commercial .[id number] Self [employer] Commercial [id number] Self Todays Option Commercial [id number] Self TODAYS OPTION CO [id number] AETNA MEDICARE [id number] SP [id number] MEDICARE COMPLETE-UHC O [id number] S [id number] [facility] Medicare Commercial [id number] Self [id number] [facility] Medicare Commercial [id number] Self [place] [employer] [id number] Self Rezora 14099 Self MEDICAID [id number] SP [id number] MEDICAID [id number] SP [id number] SELF PAY UNAVAILABLE SP UNAVAILA BLE MEDICAID [id number] SP [id number] MEDICAID [id number] SP [id number] AARP O [id number] S [id number] MEDICARE COMPLETE-UHC O [id number] S [id number] MEDICARE [id number] SP [id number] A [facility]UE [facility] [id number] 18 [id number] BLUE CROSS BLUE SHIELD-O/P [id number] 18 [id number] MEDICARE BLUE PPO P [id number] S [id number] [facility] [id number] 18 [id number] [facility] Medicare Commercial [id number] Self [id number] AETNA MEDICARE [id number] SP [id number] HUMANA GOLD [id number] SP [id number] MEDICARE [id number] SP [id number] Medicaid [facility] Other 0 [id number] Self 0 Humana Care Plan Other 0 [id number] Self 0 Medicare Part B of [place] Other 0 [id number] Self 0 HUMANA GOLD [id number] SP [id number] AETNA MEDICARE [id number] SP [id number] MEDICARE [id number] SP [id number] HUMANA GOLD [id number] SP [id number] TODAYS OPTIONSDO NOT USE [id number] SP [id number] AARP HEALTH CARE OPTIONS [id number] SP [id number] HUMANA GOLD [id number] SP [id number] HUMANA GOLD O [id number] S [id number] HUMANA GOLD O [id number] S [id number] HUMANA GOLD O [id number] S [id number] HUMANA GOLD [id number] SP [id number] EMEDNY [id number] SP [id number] MEDICAID M [id number] S [id number] Medicare Wrap S [id number] S [id number] TODAYS OPTIONS [id number] SP [id number] WELLCARE [id number] SP [id number] HUMANA PPO [id number] SP [id number] Todays Options Medigap Part B [id number] Self [id number] Humana MCR Adv Commercial [id number] Self [id number] ANSI-Not a Secondary Insurance [id number] ANSI-Medicare Part B [id number] ANSI-Commercial [id number] ANSI-Health Maintenance Organization ( O) [id number] ANSI-Commercial [id number] ANSI-Medicare Part B [id number] ANSI-Health Maintenance Organization ( O) [id number] ANSI-Medicare Part B [id number] ANSI-Commercial [id number] ANSI-Medicare Part B [id number] ANSI-Commercial [id number] ANSI-Not a Secondary Insurance [id number] ANSI-Not a Secondary Insurance [id number] ANSI-Medicare Part B [id number] ANSI-Medicare Part B [id number] ANSI-Commercial [id number] ANSI-Health Maintenance Organization ( O) [id number] ANSI-Commercial [id number] SELF PAY ONLY [id number] SP [id number] HUMANA PPO [id number] SP [id number] WELLCARE [id number] SP [id number] ANSI-Health Maintenance Organization ( O) [id number] ANSI-Medicare Part B [id number] ANSI-Medicare Part B [id number] Problems, Conditions, and Diagnoses Code Display Name Description Problem Type Effective Dates Data Source(s) 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) Iron deficiency anemia secondary to bloo Diagnosis 07/06/2020 09:51:07 AM EDT [facility] I10 Essential (primary) hypertension Essential (primary) h ypertension Diagnosis 07/06/2020 09:51:07 AM EDT [facility] R01.1 Cardiac murmur, unspecified Cardiac murmur, unspecifie d Diagnosis 12/30/2019 08:50:51 AM [facility] R94.31 Abnormal electrocardiogram [ECG] [EKG] A bnormal electrocardiogram (ECG) (EKG) Diagnosis 12/30/2019 08:50:51 AM [facility] K21.9 Gastro-esophageal reflux disease without esophagitis Gastro-esophageal reflux disease without Diagnosis 12/30/2019 08:50:51 AM [facility] M19.90 Unspecified osteoarthritis, unspecified site Unspecified osteoarthritis, unspecified Diagnosis 12/30/2019 08:50:51 AM [facility] E03.9 Hypothyroidism, unspecified Hypothyroidism, unspecifie d Diagnosis 12/30/2019 08:50:51 AM [facility] Z79.4 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 (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) 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 of 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 jail (cu rrent) use of insulin Diagnosis 12/30/2019 08:50:51 AM [facility] E11.9 Type 2 diabetes mellitus without complic ations Type 2 diabetes mellitus without complic Diagnosis 12/30/2019 08:50:51 AM [facility] E78.5 Hyperlipidemia, unspecified Hyperlipidemia, unspecifie d Diagnosis 12/30/2019 08:50:51 AM [facility] N18.9 Chronic kidney disease, unspecified Chronic kidn ey disease, unspecified Diagnosis 12/30/2019 08:50:51 AM [facility] 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 I25.10 Atherosclerotic heart diseas e of [place] coronary artery without angina pectoris Atherosclerotic heart disease of [place] Diagnosis 12/30/2019 08:50:51 AM EST [facility] I50.9 Heart failure, unspecified Heart failure, unspecified Diagnosis 12/30/2019 08:50:51 AM EST [facility] mild to mod cord compression of C5 and C 6 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 Diagnosis 11/13/2019 12:27:00 PM EDT [facility] M54.12 Cervical radiculopathy Cervical radiculopathy Problem 10/19/2020 12:00:00 AM EDT MEDENT ([facility] ) M48.02 Spinal stenosis in cervical region Spinal stenos is in cervical region Problem 10/19/2020 12:00:00 AM EDT MEDENT ([facility] ) R20.2 [id number] Paresthesia of both hands Problem 10/03/2020 12:00:00 AM EDT eC ([facility]) M43.06 Spondylolysis Spondylolysis Problem 08/09/2020 12:00:00 AM EDT MEDENT ([facility]) 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 Problem 08/09/2020 12:00:00 AM EDT MEDENT ([facility]) 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 Problem 08/09/2020 12:00:00 AM EDT MEDENT ([facility] ) G56.23 Lesion of ulnar nerve Lesion of ulnar nerve Problem 08/09/2020 12:00:00 AM EDT MEDENT ([facility]) G25.0 Essential tremor Essential tremor Problem 08/09/2020 12 :00:00 AM EDT MEDENT ([facility] ) G25.2 51958368 Intention tremor Problem 07/05/2020 12:00:00 AM EDT eCW ([facility]) R29.6 [id number] Frequent falls Problem 06/13/2020 12:00:00 A M EDT eC ([facility]) R20.2 [id number] Arm paresthesia, right Problem 05/12/2020 12:00:00 AM EDT eCW1 ([facility]) R20.2 [id number] Right leg paresthesias Problem 05/12/2020 12:00:00 AM EDT eCW1 ([facility]) K29.80 55882257 Duodenitis Problem 01/19/2020 12:00:00 AM ES T eCW1 ([facility]) D50.0 488542361 Blood loss anemia Problem 01/19/2020 12:00:0 0 AM EST eCW1 ([facility]) 26987396 Essential hypertension Essential hypertension Problem 01/07/2020 12:00:00 AM EST MEDENT ([facility]) N18.9 Chronic kidney disease Chronic kidney disease 63326125 12/30/2019 12:00:00 AM EST [facility] I50.32 115895020 Chronic diastolic congestive heart failur e Problem 12/01/2019 12:00:00 AM EDT eCW1 ([facility]) 362.11 Retinopathy Hypertensive Retinopathy Hypertensive Prob juan 04/03/2018 12:00:00 AM EST - 10/05/2020 12:00:00 AM EDT SHANE (Aydin Toribio MD [facility]) 366.16 Age-related nuclear cataract, bilateral Age-related nuclear cataract, bilateral Problem 05/13/2017 12:00:00 AM EDT - 10/05/2020 12:00:00 AM EDT SHANE (Aydin Toribio MD [facility]) Surgeries/Procedures Procedure Description Date Indications Data Source(s) OFFICE OUTPATIENT VISIT 40 MINUTES 10/19/2020 12:00:00 AM EDT MEDENT ([facility]) Surgical / procedural history : Cholecys tectomy, Hysterectomy 1989, Right Salivary Gland removed, Fistula removed, 1981, Gallbladder 1982 Surgical / procedural history : Cholecystectomy, Hysterectomy 1989, Right Salivary Gland removed, Fistula removed, 1981, Gallbladder 198210/05/2020 12:00:00 AM EDT SHANE (Aydin mckenna MD [facility]) Extracapsular extraction of lens (procedure) History o f extracapsular cataract extraction PCIOL OD by Dr. Mustafa 12/20/16 ~PCIOL OS by Dr. Mustafa 01/03/17 10/05/2020 12:00:00 AM EDT SHANE (Eric Toribio MD [facility]) OFFICE OUTPATIENT VISIT 15 MINUTES 10/04/2020 12:00:00 AM EDT MEDENT ([facility]) ARTHROCENTESIS ASPIR&/INJECTION MAJOR JT/BURSA 021 12:00:00 AM EDT MEDENT ([facility]) RADIOLOGIC EXAM KNEE COMPLETE 4/MORE VIEWS 09/21/2020 12:00:00 AM EDT MEDENT ([facility]) OFFICE OUTPATIENT VISIT 15 MINUTES 09/21/2020 12:00:00 AM EDT MEDENT ([facility]) RADIOLOGIC EXAM KNEE COMPLETE 4/MORE VIEWS 09/21/2020 12:00:00 AM EDT MEDENT ([facility]) OFFICE OUTPATIENT VISIT 15 MINUTES 09/20/2020 12:00:00 AM EDT MEDENT ([facility]) ARTHROCENTESIS ASPIR&/INJECTION MAJOR JT/BURSA 021 12:00:00 AM EDT MEDENT ([facility]) RADEX SPINE LUMBOSACRAL 2/3 VIEWS 08/18/2020 12:00:00 AM EDT MEDENT ([facility]) OFFICE OUTPATIENT VISIT 25 MINUTES 08/18/2020 12:00:00 AM EDT MEDENT ([facility]) Needle electromyography, each extremity, with related paraspinal areas, when performed, done with nerve conduction, amplitude and latency/velocity study; complete, five or more muscles studied, innervated by three or more nerves or four or more spinal levels (list separately in addition to the code for primary procedure). 08/15/2020 12:00:00 AM EDT MEDEN T ([facility] ) Needle electromyography, each extremity, with related paraspinal areas, when performed, done with nerve conduction, amplitude and latency/velocity study; complete, five or more muscles studied, innervated by three or more nerves or four or more spinal levels (list separately in addition to the code for primary procedure). 08/15/2020 12:00:00 AM EDT MEDEN T ([facility] ) Nerve Conduction 9-10 Studies 08/15/2020 12:00:00 AM E DT MEDENT ([facility] ) OFFICE OUTPATIENT NEW 60 MINUTES 08/09/2020 12:00:00 A M EDT MEDENT ([facility] ) OFFICE OUTPATIENT VISIT 25 MINUTES 08/01/2020 12:00:00 AM EDT MEDENT ([facility] ) RADEX SPINE LUMBOSACRAL 2/3 VIEWS 07/13/2020 12:00:00 AM EDT MEDENT ([facility] ) OFFICE OUTPATIENT VISIT 15 MINUTES 07/13/2020 12:00:00 AM EDT MEDENT ([facility]) ECG ROUTINE ECG W/LEAST 12 LDS W/I&R <td>POCT AMB EKG</td><td>Routine</td><td>06/08/2020 5:25 PM EDT</td><td> Coronary artery disease due to calcified coronary lesion</td><td> </td> 06/08/2020 09:25:00 PM EDT Coronary artery disease due to calcified coronary lesi on [facility] Coronary artery disease due to calcified coronary lesion OFFICE OUTPATIENT VISIT 40 MINUTES 05/26/2020 12:00:00 AM EDT MEDENT ([facility]) OFFICE OUTPATIENT VISIT 10 MINUTES 03/24/2020 12:00:00 AM EST MEDENT ([facility], ) Endoscopy Upper GI Complex Diagnostic 02/17/2020 12:00 :00 AM EST MED[facility] ([facility] ) ARTHROCENTESIS ASPIR&/INJECTION MAJOR JT/BURSA 020 12:00:00 AM EDT MEDENT ([facility]) Therapeutic, Prophylactic Or Diagnostic Injection Subq/Im 11/06/2019 12:00:00 AM EDT [facility] ([facility]) Results ID Date Data Source TSH 10/03/2020 12:00:00 AM EDT W1 ([facility]) Name Value Range Interpretation Code Description Data Jessica rce(s) Supporting Document(s) 5.420 0.358-3.740 THYROID STIMULATING HORM ONE eCW1 ([facility]) ID Date Data Source Basic Metabolic Profile (BMP) 10/03/2020 12:00:00 AM EDT eCW 1 ([facility]) Name Value Range Interpretation Code Description Data Jessica rce(s) Supporting Document(s) 31 7-18 BLOOD UREA NITROGEN eCW1 ([facility]) 310 70-100 GLUCOSE, FASTING eCW1 ([facility]) 1.11 0.55-1.30 CREATININE FOR GFR eCW1 ([facility]) 52.0 >45 GLOMERULAR FILTRATION RATE eCW 1 ([facility]) 137 136-145 SODIUM LEVEL eCW1 ([facility]) 9.5 8.8-10.2 CALCIUM LEVEL eCW1 ([facility]) 103 98-107 CHLORIDE LEVEL eCW1 ([facility]) 21 21-32 CARBON DIOXIDE LEVEL eCW1 ([facility]) 3.8 3.5-5.1 POTASSIUM SERUM eCW1 ([facility]) ID Date Data Source [id number] 10/03/2020 12:00:00 AM EDT eCW1 ([facility]) Name Value Range Interpretation Code Description Data Jessica rce(s) Supporting Document(s) Hemoglobin A1c/Hemoglobin.total in Blood 11.3 HEMOGLOBIN A1c eCW1 ([facility]) ID Date Data Source [id number] 08/27/2020 09:14:00 PM EDT [facility] Name Value Range Interpretation Code Description Data Jessica rce(s) Supporting Document(s) SARS coronavirus 2 RNA [Presence] in Res piratory specimen by AVI with probe detection [facility]GATIVE [facility] This lab was ordered by [facility] a nd reported by [facility]. ID Date Data Source [id number] 07/23/2020 07:57:00 AM EDT [facility] FASTING: UNKNOWNReceived: 07/23/2020 at 07:55:00 QPT: [facility], [address], [address] [place] [address], [place], [address], Bridger Mckinley MD Received: 07/23/2020 at 07:55:00 QPT : [facility], [address], [address] [place], [address], Bridger Mckinley MD Name Value Range Interpretation [...] is approximately 13% higher for peopleidentified as -Beninese. eGFR NON-AFR. [place] 89 mL/min/1.73m2 > OR = 60 Normal [...] results) [facility] ID Date Data Source [id number] 07/23/2020 07:57:00 AM EDT [facility] FASTING: UNKNOWNReceived: 07/23/2020 at 07:55:00 QPT: [facility], [address], [address] [place], [address], Bridger Mckinley MD Received: 07/23/2020 at 07:55:00 QPT : [facility], [address], [address] [place], [address], Bridger Mckinley MD Name Value Range Interpretation [...] DTHE DATE THE SPECIMEN WAS [facility] THE COLLECTION DATE. IF THISIS INCORRECT, PLEASE CONTACT CLIENT SERVICES.PHONE NUMBER: [phone] ID Date Data Source [id number] 05/30/2020 03:59:00 PM EDT [facility] Name Value Range Interpretation Code Description Data Jessica rce(s) Supporting Document(s) SARS coronavirus 2 RNA [Presence] in Res piratory specimen by AVI with probe detection NEGATIVE [facility] This lab was ordered by [facility] a nd reported by [facility]. ID Date Data Source [id number] 05/15/2020 11:00:00 AM EDT [facility] Name Value Range Interpretation Code Description Data Jessica rce(s) Supporting Document(s) SARS coronavirus 2 RNA [Presence] in Res piratory specimen by AVI with probe detection NEGATIVE [facility] This lab was ordered by [facility] a nd reported by [facility]. ID Date Data Source [id number] 05/12/2020 10:00:00 AM EDT [facility] Name Value Range Interpretation Code Description Data Jessica rce(s) Supporting Document(s) SARS coronavirus 2 RNA Not Detected [facility] This lab was ordered by [facility] and reported by [facility]. ID Date Data Source [facility] CT ANGIO CHEST 02/24/2020 12:00:00 AM EST eCW1 ([facility]) Name Value Range Interpretation Code Description Data Jessica rce(s) Supporting Document(s) [facility] CT ANGIO CHEST eCW1 ([facility]) ID Date Data Source [id number] 02/23/2020 12:00:00 AM EST eCW1 ([facility]) Name Value Range Interpretation Code Description Data Jessica rce(s) Supporting Document(s) 1932.80 <500 D-DIMER QUANT eCW1 ([facility]) ID Date Data Source [id number] 02/12/2020 11:00:00 AM EST [facility] Name Value Range Interpretation Code Description Data Jessica rce(s) Supporting Document(s) SARS coronavirus 2 RNA [facility] This lab was ordered by [facility] and reported by [facility]. ID Date Data Source CBC - Complete Blood Count 02/09/2020 12:00:00 AM EST eCW1 ( [facility]) Name Value Range Interpretation Code Description Data Jessica rce(s) Supporting Document(s) 4.96 4.00-5.40 RED BLOOD COUNT eCW1 ([facility]) 11.1 12.0-15.5 HEMOGLOBIN eCW1 ([facility]) 8.6 4.0-10.0 WHITE BLOOD COUNT eCW1 ([facility]) 36.7 36.0-47.0 HEMATOCRIT eCW1 ([facility]) 74.0 80.0-96.0 MEAN CORPUSCULAR VOLUME e CW1 ([facility]) 22.4 27.0-33.0 MEAN CORPUSCULAR HEMOGLOB IN eCW1 ([facility]) 23.9 11.5-14.5 RED CELL DISTRIBUTION WID TH eCW1 ([facility]) 30.2 32.0-36.5 MEAN CORPUSCULAR HGB CONC eCW1 ([facility]) 305 150-450 PLATELET COUNT, AUTOMATED eCW1 ([facility]) ID Date Data Source [id number] 01/31/2020 06:30:00 PM EST [facility] Name Value Range Interpretation Code Description Data Jessica rce(s) Supporting Document(s) SARS coronavirus 2 RNA [Presence] in Res piratory specimen by AVI with probe detection [facility] This lab was ordered by [facility] a nd reported by [facility]. Procedure Social History Code Duration Value Status Description Data Source(s ) Smoking 12/12/2020 12:00:00 AM EDT Former Smoker completed Former Smoker eCW1 ([facility]) Smoking 12/12/2020 12:00:00 AM EDT Former Smoker completed Former Smoker eCW1 ([facility]) Smoking 12/12/2020 12:00:00 AM EDT Former Smoker completed Former Smoker eCW1 ([facility]) Smoking 12/12/2020 12:00:00 AM EDT Former Smoker completed Former Smoker eCW1 ([facility]) Alcohol intake 10/12/2020 12:00:00 AM EDT Current drinker of al cohol (finding) completed Current drinker of alcohol (finding) [facility] Tobacco use and exposure 10/12/2020 12:00:00 AM EDT Never used co mpleted Never used [facility] Smoking 10/12/2020 12:00:00 AM EDT Former smoker completed Former smoker [facility] Smoking 10/11/2020 12:00:00 AM EDT Former Smoker completed Former Smoker eCW1 ([facility]) Smoking 10/11/2020 12:00:00 AM EDT Former Smoker completed Former Smoker eCW1 ([facility]) Smoking 10/11/2020 12:00:00 AM EDT Former Smoker completed Former Smoker eCW1 ([facility]) Smoking 10/05/2020 11:56:16 AM EDT Ex-smoker (finding) complet ed Ex-smoker (finding) SHANE (Aydin Toribio MD [facility]) Smoking 10/03/2020 12:00:00 AM EDT Former Smoker completed Former Smoker [email or web address] ([facility]) Smoking 10/03/2020 12:00:00 AM EDT Former Smoker completed Former Smoker [email or web address] ([facility]) Smoking 10/03/2020 12:00:00 AM EDT Former Smoker completed Former Smoker [email or web address] ([facility]) Smoking 10/03/2020 12:00:00 AM EDT Former Smoker completed Former Smoker [email or web address] ([facility]) Alcohol intake 09/09/2020 12:00:00 AM EDT Current drinker of al cohol (finding) completed Current drinker of alcohol (finding) [facility] Smoking 08/22/2020 12:00:00 AM EDT Former Smoker completed Former Smoker [email or web address] ([facility]) Smoking 08/22/2020 12:00:00 AM EDT Former Smoker completed Former Smoker [email or web address] ([facility]) Smoking 08/22/2020 12:00:00 AM EDT Former Smoker completed Former Smoker [email or web address] ([facility]) Smoking 08/22/2020 12:00:00 AM EDT Former Smoker completed Former Smoker [email or web address] ([facility]) Smoking 08/22/2020 12:00:00 AM EDT Former Smoker completed Former Smoker [email or web address] ([facility]) Smoking 08/22/2020 12:00:00 AM EDT Former Smoker completed Former Smoker [email or web address] ([facility]) Smoking 08/22/2020 12:00:00 AM EDT Former Smoker completed Former Smoker eCW1 ([facility]) Smoking 08/22/2020 12:00:00 AM EDT Former Smoker completed Former Smoker eCW1 ([facility]) Smoking 08/22/2020 12:00:00 AM EDT Former Smoker completed Former Smoker [email or web address] ([facility]) Smoking 08/02/2020 12:00:00 AM EDT Former Smoker completed Former Smoker [email or web address] ([facility]) Smoking 08/02/2020 12:00:00 AM EDT Former Smoker completed Former Smoker [email or web address] [facility] Smoking 07/20/2020 12:00:00 AM EDT Former Smoker completed Former Smoker eCW1 ([facility]) Smoking 07/20/2020 12:00:00 AM EDT Former Smoker completed Former Smoker eCW1 ([facility]) Smoking 07/20/2020 12:00:00 AM EDT Former Smoker completed Former Smoker eCW1 ([facility]) Alcohol intake 07/06/2020 12:00:00 AM EDT Current drinker of al cohol (finding) completed Current drinker of alcohol (finding) [facility] Smoking 07/05/2020 12:00:00 AM EDT Former Smoker completed Former Smoker eCW1 ([facility]) Smoking 07/05/2020 12:00:00 AM EDT Former Smoker completed Former Smoker eCW1 ([facility]) Smoking 07/05/2020 12:00:00 AM EDT Former Smoker completed Former Smoker eCW1 ([facility]) Smoking 07/05/2020 12:00:00 AM EDT Former Smoker completed Former Smoker eCW1 ([facility]) Smoking 07/05/2020 12:00:00 AM EDT Former Smoker completed Former Smoker eCW1 ([facility]) Smoking 06/13/2020 12:00:00 AM EDT Former Smoker completed Former Smoker eCW1 ([facility]) Smoking 06/13/2020 12:00:00 AM EDT Former Smoker completed Former Smoker eCW1 ([facility]) Smoking 06/13/2020 12:00:00 AM EDT Former Smoker completed Former Smoker eCW1 ([facility]) Smoking 06/13/2020 12:00:00 AM EDT Former Smoker completed Former Smoker eCW1 ([facility]) Alcohol intake 06/08/2020 12:00:00 AM EDT Yes completed [facility] Smoking 06/08/2020 12:00:00 AM EDT [facility] 12:00:00 AM EDT Former Smoker completed Former Smoker eCW1 ([facility]) Smoking 05/12/2020 12:00:00 AM EDT Former Smoker completed Former Smoker eCW1 ([facility]) Smoking 05/12/2020 12:00:00 AM EDT Former Smoker completed Former Smoker eCW1 ([facility]) Smoking 05/12/2020 12:00:00 AM EDT Former Smoker completed Former Smoker eCW1 ([facility]) Smoking 05/12/2020 12:00:00 AM EDT Former Smoker completed Former Smoker eCW1 ([facility]) Smoking 05/12/2020 12:00:00 AM EDT Former Smoker completed Former Smoker eCW1 ([facility]) Smoking 05/12/2020 12:00:00 AM EDT Former Smoker completed Former Smoker eCW1 ([facility]) Alcohol intake 04/15/2020 12:00:00 AM EST Yes completed [facility] Smoking 04/15/2020 12:00:00 AM EST Never smoker completed Never s moker [facility] Smoking 04/04/2020 12:00:00 AM EST Former Smoker completed Former Smoker eCW1 ([facility]) Smoking 04/04/2020 12:00:00 AM EST Former Smoker completed Former Smoker eCW1 ([facility]) Smoking 04/04/2020 12:00:00 AM EST Former Smoker completed Former Smoker eCW1 ([facility]) Smoking 04/04/2020 12:00:00 AM EST Former Smoker completed Former Smoker eCW1 ([facility]) Smoking 04/04/2020 12:00:00 AM EST Former Smoker completed Former Smoker eCW1 ([facility]) Smoking 04/04/2020 12:00:00 AM EST Former Smoker completed Former Smoker eCW1 ([facility]) Smoking 04/04/2020 12:00:00 AM EST Former Smoker completed Former Smoker eCW1 ([facility]) Smoking 04/04/2020 12:00:00 AM EST Former Smoker completed Former Smoker eCW1 ([facility]) Smoking 03/08/2020 12:00:00 AM EST Former Smoker completed Former Smoker eCW1 ([facility]) Smoking 03/08/2020 12:00:00 AM EST Former Smoker completed Former Smoker eCW1 ([facility]) Smoking 03/08/2020 12:00:00 AM EST Former Smoker completed Former Smoker eCW1 ([facility]) Smoking 03/08/2020 12:00:00 AM EST Former Smoker completed Former Smoker eCW1 ([facility]) Smoking 03/08/2020 12:00:00 AM EST Former Smoker completed Former Smoker eCW1 ([facility]) Smoking 03/08/2020 12:00:00 AM EST Former Smoker completed Former Smoker eCW1 ([facility]) Smoking 02/23/2020 12:00:00 AM EST Former Smoker completed Former Smoker eCW1 ([facility]) Smoking 02/23/2020 12:00:00 AM EST Former Smoker completed Former Smoker eCW1 ([facility]) Smoking 02/23/2020 12:00:00 AM EST Former Smoker completed Former Smoker eCW1 ([facility]) Smoking 02/23/2020 12:00:00 AM EST Former Smoker completed Former Smoker eCW1 ([facility]) Smoking 02/23/2020 12:00:00 AM EST Former Smoker completed Former Smoker eCW1 ([facility]) Smoking 02/23/2020 12:00:00 AM EST Former Smoker completed Former Smoker eCW1 ([facility]) Smoking 02/09/2020 12:00:00 AM EST Former Smoker completed Former Smoker eCW1 ([facility]) Smoking 02/09/2020 12:00:00 AM EST Former Smoker completed Former Smoker eCW1 ([facility]) Smoking 02/09/2020 12:00:00 AM EST Former Smoker completed Former Smoker eCW1 ([facility]) Smoking 02/09/2020 12:00:00 AM EST Former Smoker completed Former Smoker eCW1 ([facility]) Smoking 02/09/2020 12:00:00 AM EST Former Smoker completed Former Smoker eCW1 ([facility]) Smoking 02/09/2020 12:00:00 AM EST Former Smoker completed Former Smoker eCW1 ([facility]) Smoking 01/26/2020 12:00:00 AM EST Former Smoker completed Former Smoker eCW1 ([facility]) Smoking 01/26/2020 12:00:00 AM EST Former Smoker completed Former Smoker eCW1 ([facility]) Smoking 01/26/2020 12:00:00 AM EST Former Smoker completed Former Smoker eCW1 ([facility]) Smoking 01/26/2020 12:00:00 AM EST Former Smoker completed Former Smoker eCW1 ([facility]) Smoking 01/26/2020 12:00:00 AM EST Former Smoker completed Former Smoker eCW1 ([facility]) Smoking 01/19/2020 12:00:00 AM EST Former Smoker completed Former Smoker eCW1 ([facility]) Alcohol intake 12/30/2019 12:00:00 AM EST Yes completed [facility] Smoking 12/30/2019 12:00:00 AM EST Never smoker completed Never s moker [facility] Smoking 12/01/2019 12:00:00 AM EDT Former Smoker completed Former Smoker eCW1 ([facility]) Smoking 12/01/2019 12:00:00 AM EDT Former Smoker completed Former Smoker eCW1 ([facility]) Smoking 12/01/2019 12:00:00 AM EDT Former Smoker completed Former Smoker eCW1 ([facility]) Smoking 12/01/2019 12:00:00 AM EDT Former Smoker completed Former Smoker eCW1 ([facility]) Smoking 12/01/2019 12:00:00 AM EDT Former Smoker completed Former Smoker eCW1 ([facility]) Smoking 12/01/2019 12:00:00 AM EDT Former Smoker completed Former Smoker eCW1 ([facility]) Smoking 12/01/2019 12:00:00 AM EDT Former Smoker completed Former Smoker eCW1 ([facility]) Smoking 12/01/2019 12:00:00 AM EDT Former Smoker completed Former Smoker eCW1 ([facility]) Smoking 12/01/2019 12:00:00 AM EDT Former Smoker completed Former Smoker eCW1 ([facility]) Smoking 12/01/2019 12:00:00 AM EDT Former Smoker completed Former Smoker eCW1 ([facility]) Smoking 12/01/2019 12:00:00 AM EDT Former Smoker completed Former Smoker eCW1 ([facility]) Smoking 12/01/2019 12:00:00 AM EDT Former Smoker completed Former Smoker eCW1 ([facility]) Smoking 11/06/2019 12:00:00 AM EDT Patient is a former smoker completed Patient is a former smoker MEDENT ([facility], [facility]) Vital Signs ID Date Data Source UNK Name Value Range Interpretation Code Description Data Source(s) Body weight 166 [lb_av] 166 [lb_av] eCW1 ([facility]) Body height 63.5 [in_i] 63.5 [in_i] eCW1 ([facility]) Body mass index (BMI) [Ratio] 28.94 kg/m2 28.94 kg/m2 eCW1 ([facility]) Heart rate 74 /min 74 /min eCW1 ([facility]) Respiratory rate 18 /min 18 /min eCW1 ([facility]) Body temperature 96.5 [degF] 96.5 [degF] eCW1 ( [facility]) Systolic blood pressure 150 mm[Hg] 150 mm[Hg] e CW1 ([facility]) Diastolic blood pressure 70 mm[Hg] 70 mm[Hg] eCW1 ([facility]) Systolic blood pressure 130 mm[Hg] 130 mm[Hg] [facility] Diastolic blood pressure 60 mm[Hg] 60 mm[Hg] [facility] Body height 160 cm 160 cm [facility] Body weight 79.742 kg 79.742 kg [facility] Heart rate 65 /min 65 /min [facility] Body mass index (BMI) [Ratio] 31.14 kg/m2 31.14 kg/m2 [facility] Oxygen saturation in Arterial blood by Pulse oximetry 99 % 99 % [facility] Body weight 177.4 [lb_av] 177.4 [lb_av] eCW1 ([facility]) Body weight 80.47 kg 80.47 kg eCW1 ([facility]) Body height 63.5 [in_i] 63.5 [in_i] W1 ([facility]) Body mass index (BMI) [Ratio] 30.93 kg/m2 30.93 kg/m2 W1 ([facility]) Heart rate 83 /min 83 /min eCW1 ([facility]) Respiratory rate 18 /min 18 /min eCW1 ([facility]) Body temperature 96.5 [degF] 96.5 [degF] eCW1 ( [facility]) Systolic blood pressure 160 mm[Hg] 160 mm[Hg] e CW1 ([facility]) Diastolic blood pressure 82 mm[Hg] 82 mm[Hg] eCW1 ([facility]) [place] body weight 110 [lb_av] 110 [lb_av] MEDEN T ([facility], ) Body weight 79.380 kg 79.380 kg MEDENT ([facility], ) Body surface area Derived from formula 1.81 m2 1.81 m2 MEDENT ([facility], ) Systolic blood pressure 167 mm[Hg] 167 mm[Hg] M EDENT ([facility], ) Diastolic blood pressure 73 mm[Hg] 73 mm[Hg] MEDENT ([facility]) Heart rate 83 /min 83 /min MEDENT ([facility]) Body temperature 95.2 [degF] 95.2 [degF] [facility] ([facility]) Body height 62 [in_i] 62 [in_i] [facility] 5'2" Body weight 175.00 [lb_av] 175.00 [lb_av] MEDEN T ([facility]) Body mass index (BMI) [Ratio] 32.0 kg/m2 32.0 k g/m2 [facility] ([facility]) Body weight 175 [lb_av] 175 [lb_av] eCW1 ([facility]) Body height 63.5 [in_i] 63.5 [in_i] eCW1 ([facility]) Body mass index (BMI) [Ratio] 30.51 kg/m2 30.51 kg/m2 W1 ([facility]) Heart rate 72 /min 72 /min eCW1 ([facility]) Respiratory rate 18 /min 18 /min eCW1 ([facility]) Body temperature 96.5 [degF] 96.5 [degF] eCW1 ( [facility]) Systolic blood pressure 120 mm[Hg] 120 mm[Hg] e CW1 ([facility]) Diastolic blood pressure 60 mm[Hg] 60 mm[Hg] eCW1 ([facility]) Body height 62 [in_i] 62 [in_i] [facility] 5'2" Systolic blood pressure 132 mm[Hg] 132 mm[Hg] M EDENT ([facility]) Body weight 179.00 [lb_av] 179.00 [lb_av] MEDEN T ([facility]) Body mass index (BMI) [Ratio] 32.7 kg/m2 32.7 k g/m2 [facility] ([facility]) Body surface area Derived from formula 1.82 m2 1.82 m2 [facility] ([facility] ) Diastolic blood pressure 70 mm[Hg] 70 mm[Hg] MEDENT ([facility], ) [place] body weight 110 [lb_av] 110 [lb_av] MEDEN T ([facility], ) Body weight 81.194 kg 81.194 kg MEDENT ([facility], ) Systolic blood pressure 148 mm[Hg] 148 mm[Hg] [facility] Diastolic blood pressure 68 mm[Hg] 68 mm[Hg] [facility] Heart rate 59 /min 59 /min [facility] Body height 160 cm 160 cm [facility] Body weight 81.466 kg 81.466 kg [facility] Body mass index (BMI) [Ratio] 31.81 kg/m2 31.81 kg/m2 [facility] Oxygen saturation in Arterial blood by Pulse oximetry 99 % 99 % [facility] Body weight 178.8 [lb_av] 178.8 [lb_av] W1 ([facility]) Body height 63.5 [in_i] 63.5 [in_i] eCW1 ([facility]) Body mass index (BMI) [Ratio] 31.17 kg/m2 31.17 kg/m2 [facility] ([facility]) Heart rate 103 /min 103 /min W1 ([facility]) Respiratory rate 18 /min 18 /min eCW1 ([facility]) Body temperature 97.7 [degF] 97.7 [degF] eCW1 ( [facility]) Systolic blood pressure 142 mm[Hg] 142 mm[Hg] e CW1 ([facility]) Diastolic blood pressure 84 mm[Hg] 84 mm[Hg] eCW1 ([facility]) Body weight 186 [lb_av] 186 [lb_av] eCW1 ([facility]) Body height 63.5 [in_i] 63.5 [in_i] W1 ([facility]) Body mass index (BMI) [Ratio] 32.43 kg/m2 32.43 kg/m2 eCW1 ([facility]) Heart rate 77 /min 77 /min eCW1 ([facility]) Respiratory rate 18 /min 18 /min eCW1 ([facility]) Body temperature 96.9 [degF] 96.9 [degF] eCW1 ( [facility]) Systolic blood pressure 142 mm[Hg] 142 mm[Hg] e CW1 ([facility]) Diastolic blood pressure 76 mm[Hg] 76 mm[Hg] eCW1 ([facility]) Body height 62 [in_i] 62 [in_i] MEDENT ([facility]) 5'2" Body surface area Derived from formula 1.85 m2 1.85 m2 [facility] ([facility]) Body weight 83.916 kg 83.916 kg [facility] ([facility]) Body weight 185.00 [lb_av] 185.00 [lb_av] MEDEN T ([facility]) Body mass index (BMI) [Ratio] 33.8 kg/m2 33.8 k g/m2 [facility] ([facility]) [place] body weight 110 [lb_av] 110 [lb_av] MEDEN T ([facility]) Body surface area Derived from formula 1.85 m2 1.85 m2 [facility] ([facility]) Systolic blood pressure 136 mm[Hg] 136 mm[Hg] M EDENT ([facility]) Diastolic blood pressure 70 mm[Hg] 70 mm[Hg[facility] Body height 62 [in_i] 62 [in_i] [facility] 5'2" Body weight 185.00 [lb_av] 185.00 [lb_av] MEDEN T ([facility]) Body mass index (BMI) [Ratio] 33.8 kg/m2 33.8 k g/m2 [facility] ([facility]) [place] body weight 110 [lb_av] 110 [lb_av] MEDEN T ([facility]) Body weight 83.916 kg 83.916 kg MEDMARIA INES ([facility], ) Body weight 183 [lb_av] 183 [lb_av] eCW1 ([facility]) Body height 63.5 [in_i] 63.5 [in_i] eCW1 ([facility]) Body mass index (BMI) [Ratio] 31.91 kg/m2 31.91 kg/m2 eCW1 ([facility]) Heart rate 71 /min 71 /min eCW1 ([facility]) Respiratory rate 18 /min 18 /min eCW1 ([facility]) Body temperature 98.3 [degF] 98.3 [degF] eCW1 ( [facility]) Systolic blood pressure 144 mm[Hg] 144 mm[Hg] e CW1 ([facility]) Diastolic blood pressure 62 mm[Hg] 62 mm[Hg] eCW1 ([facility]) Systolic blood pressure 140 mm[Hg] 140 mm[Hg] [facility] Diastolic blood pressure 80 mm[Hg] 80 mm[Hg] [facility] Oxygen saturation in Arterial blood by Pulse oximetry 97 % 97 % [facility] Heart rate 69 /min 69 /min [facility] Body height 160 cm 160 cm [facility] Body weight 87.091 kg 87.091 kg [facility] Body mass index (BMI) [Ratio] 34.01 kg/m2 34.01 kg/m2 [facility] Body weight 192 [lb_av] 192 [lb_av] eCW1 ([facility]) Body height 63.5 [in_i] 63.5 [in_i] eCW1 ([facility]) Systolic blood pressure 130 mm[Hg] 130 mm[Hg] e CW1 ([facility]) Body mass index (BMI) [Ratio] 33.47 kg/m2 33.47 kg/m2 eCW1 ([facility]) Diastolic blood pressure 76 mm[Hg] 76 mm[Hg] eCW1 ([facility]) Heart rate 91 /min 91 /min eCW1 ([facility]) Respiratory rate 18 /min 18 /min eCW1 ([facility]) Body temperature 97.4 [degF] 97.4 [degF] eCW1 ( [facility]) Body weight 189.4 [lb_av] 189.4 [lb_av] eCW1 ([facility]) Body height 63.5 [in_i] 63.5 [in_i] eCW1 ([facility]) Body mass index (BMI) [Ratio] 33.02 kg/m2 33.02 kg/m2 eCW1 ([facility]) Heart rate 73 /min 73 /min eCW1 ([facility]) Respiratory rate 18 /min 18 /min eCW1 ([facility]) Body temperature 97.3 [degF] 97.3 [degF] eCW1 ( [facility]) Systolic blood pressure 124 mm[Hg] 124 mm[Hg] e CW1 ([facility]) Diastolic blood pressure 70 mm[Hg] 70 mm[Hg] eCW1 ([facility]) Diastolic blood pressure 80 mm[Hg] 80 mm[Hg] [facility] Systolic blood pressure 140 mm[Hg] 140 mm[Hg] [facility] Oxygen saturation in Arterial blood by Pulse oximetry 99 % 99 % [facility] Heart rate 65 /min 65 /min [facility] Body height 160 cm 160 cm [facility] Body weight 84.369 kg 84.369 kg [facility] Body mass index (BMI) [Ratio] 32.95 kg/m2 32.95 kg/m2 [facility] Body height 63.5 [in_i] 63.5 [in_i] MEDENT ([facility]) 5'3.50" Body weight 190.00 [lb_av] 190.00 [lb_av] MEDEN T ([facility]) Body mass index (BMI) [Ratio] 33.1 kg/m2 33.1 k g/m2 MEDENT ([facility] ) Body weight 188.6 [lb_av] 188.6 [lb_av] eCW1 ([facility]) Body height 63.5 [in_i] 63.5 [in_i] eCW1 ([facility]) Body mass index (BMI) [Ratio] 32.88 kg/m2 32.88 kg/m2 eCW1 ([facility]) Heart rate 61 /min 61 /min eCW1 ([facility]) Respiratory rate 18 /min 18 /min eCW1 ([facility]) Body temperature 97.5 [degF] 97.5 [degF] eCW1 ( [facility]) Systolic blood pressure 118 mm[Hg] 118 mm[Hg] e CW1 ([facility]) Diastolic blood pressure 68 mm[Hg] 68 mm[Hg] eCW1 ([facility]) Body weight 200.4 [lb_av] 200.4 [lb_av] eCW1 ([facility]) Body height 63.5 [in_i] 63.5 [in_i] eCW1 ([facility]) Body mass index (BMI) [Ratio] 34.94 kg/m2 34.94 kg/m2 W1 ([facility]) Systolic blood pressure 130 mm[Hg] 130 mm[Hg] [facility] Diastolic blood pressure 75 mm[Hg] 75 mm[Hg] [facility] Body height 160 cm 160 cm [facility] Heart rate 73 /min 73 /min [facility] Body weight 89.359 kg 89.359 kg [facility] Body mass index (BMI) [Ratio] 34.90 kg/m2 34.90 kg/m2 [facility] Oxygen saturation in Arterial blood by Pulse oximetry 93 % 93 % [facility] Body weight 183 [lb_av] 183 [lb_av] eCW1 ([facility]) Body height 63.5 [in_i] 63.5 [in_i] eCW1 ([facility]) Body mass index (BMI) [Ratio] 31.91 kg/m2 31.91 kg/m2 eCW1 ([facility]) Body weight 183 [lb_av] 183 [lb_av] eCW1 ([facility]) Body height 63.5 [in_i] 63.5 [in_i] eCW1 ([facility]) Body mass index (BMI) [Ratio] 31.91 kg/m2 31.91 kg/m2 eCW1 ([facility]) Heart rate 52 /min 52 /min eCW1 ([facility]) Respiratory rate 18 /min 18 /min eCW1 ([facility]) Body temperature 96.4 [degF] 96.4 [degF] eCW1 ( [facility]) Systolic blood pressure 98 mm[Hg] 98 mm[Hg] e CW1 ([facility]) Diastolic blood pressure 56 mm[Hg] 56 mm[Hg] eCW1 ([facility]) Body weight 186.00 [lb_av] 186.00 [lb_av] MEDEN T ([facility], ) Body mass index (BMI) [Ratio] 34.0 kg/m2 34.0 k g/m2 [facility], [facility] [place] body weight 110 [lb_av] 110 [lb_av] MEDEN T ([facility], ) Systolic blood pressure 150 mm[Hg] 150 mm[Hg] M EDENT ([facility], ) Diastolic blood pressure 90 mm[Hg] 90 mm[Hg] MEDENT ([facility], ) Body height 62 [in_i] 62 [in_i] [facility], ) 5'2" Body weight 84.370 kg 84.370 kg [facility] ([facility], ) Body surface area Derived from formula 1.85 m2 1.85 m2 [facility] ([facility], ) Body weight 185 [lb_av] 185 [lb_av] eCW1 ([facility]) Body height 63.5 [in_i] 63.5 [in_i] eCW1 ([facility]) Body mass index (BMI) [Ratio] 32.25 kg/m2 32.25 kg/m2 eCW1 ([facility]) Heart rate 89 /min 89 /min eCW1 ([facility]) Respiratory rate 20 /min 20 /min eCW1 ([facility]) Body temperature 96.1 [degF] 96.1 [degF] eCW1 ( [facility]) Systolic blood pressure 128 mm[Hg] 128 mm[Hg] e CW1 ([facility]) Diastolic blood pressure 70 mm[Hg] 70 mm[Hg] eCW1 ([facility]) Body weight 198 [lb_av] 198 [lb_av] eCW1 ([facility]) Body height 63.5 [in_i] 63.5 [in_i] eCW1 ([facility]) Body mass index (BMI) [Ratio] 34.52 kg/m2 34.52 kg/m2 eCW1 ([facility]) Heart rate 72 /min 72 /min eCW1 ([facility]) Respiratory rate 20 /min 20 /min eCW1 ([facility]) Body temperature 98.4 [degF] 98.4 [degF] eCW1 ( [facility]) Systolic blood pressure 130 mm[Hg] 130 mm[Hg] e CW1 ([facility]) Diastolic blood pressure 60 mm[Hg] 60 mm[Hg] eCW1 ([facility]) Body height 63.5 [in_i] 63.5 [in_i] eCW1 ([facility]) Body weight 168 [lb_av] 168 [lb_av] eCW1 ([facility]) Respiratory rate 20 /min 20 /min eCW1 ([facility]) Body temperature [degF] eCW1 ([facility]) Systolic blood pressure 122 mm[Hg] 122 mm[Hg] e CW1 ([facility]) Diastolic blood pressure 60 mm[Hg] 60 mm[Hg] eCW1 ([facility]) Body mass index (BMI) [Ratio] 29.29 kg/m2 29.29 kg/m2 eCW1 ([facility]) Heart rate 88 /min 88 /min eCW1 ([facility]) Body height 62 [in_i] 62 [in_i] MEDENT ([facility], ) 5'2" Body weight 172.00 [lb_av] 172.00 [lb_av] MEDEN T ([facility]) Body mass index (BMI) [Ratio] 31.5 kg/m2 31.5 k g/m2 [facility] ([facility]) Systolic blood pressure 138 mm[Hg] 138 mm[Hg] M EDENT ([facility]) Diastolic blood pressure 70 mm[Hg] 70 mm[Hg] [facility] ([facility]) [place] body weight 110 [lb_av] 110 [lb_av] MEDEN T ([facility]) Body weight 78.019 kg 78.019 kg MEDENT ([facility]) Body surface area Derived from formula 1.79 m2 1.79 m2 [facility] ([facility]) Systolic blood pressure 140 mm[Hg] 140 mm[Hg] M EDENT ([facility]) Diastolic blood pressure 72 mm[Hg] 72 mm[Hg] [facility] ([facility]) Body mass index (BMI) [Ratio] 40.7 kg/m2 40.7 k g/m2 [facility] ([facility]) Body height 54.5 [in_i] 54.5 [in_i] MEDENT ([facility]) 4'6.50" Body weight 172.00 [lb_av] 172.00 [lb_av] MEDEN T ([facility]) Body weight 78.019 kg 78.019 kg [facility]) [place] body weight 100 [lb_av] 100 [lb_av] MEDEN T ([facility]) Body surface area Derived from formula 1.63 m2 1.63 m2 [facility] ([facility]) Body weight 175 [lb_av] 175 [lb_av] eCW1 ([facility]) Body height 63.5 [in_i] 63.5 [in_i] eCW1 ([facility]) Body mass index (BMI) [Ratio] 30.51 kg/m2 30.51 kg/m2 eCW1 ([facility]) Heart rate 56 /min 56 /min eCW1 ([facility]) Respiratory rate 18 /min 18 /min eCW1 ([facility]) Body temperature 96.2 [degF] 96.2 [degF] eCW1 ( [facility]) Systolic blood pressure 98 mm[Hg] 98 mm[Hg] e CW1 ([facility]) Diastolic blood pressure 58 mm[Hg] 58 mm[Hg] eCW1 ([facility]) Systolic blood pressure 110 mm[Hg] 110 mm[Hg] M EDENT ([facility], ) Diastolic blood pressure 58 mm[Hg] 58 mm[Hg] MEDENT ([facility], ) Body height 54.5 [in_i] 54.5 [in_i] MEDENT ([facility], ) 4'6.50" Body weight 170.00 [lb_av] 170.00 [lb_av] MEDEN T ([facility], ) Body mass index (BMI) [Ratio] 40.2 kg/m2 40.2 k g/m2 [facility], [facility] [place] body weight 100 [lb_av] 100 [lb_av] MEDEN T ([facility], ) Body weight 77.112 kg 77.112 [facility] ) Body surface area Derived from formula 1.62 m2 1.62 m2 [facility] ([facility], ) Systolic blood pressure 140 mm[Hg] 140 mm[Hg] [facility] Diastolic blood pressure 70 mm[Hg] 70 mm[Hg] [facility] Heart rate 66 /min 66 /min [facility] Body height 160 cm 160 cm [facility] Body weight 75.297 kg 75.297 kg [facility] Body mass index (BMI) [Ratio] 29.41 kg/m2 29.41 kg/m2 [facility] Oxygen saturation in Arterial blood by Pulse oximetry 97 % 97 % [facility] Body weight 166 [lb_av] 166 [lb_av] eCW1 ([facility]) Body height 63.5 [in_i] 63.5 [in_i] eCW1 ([facility]) Diastolic blood pressure 66 mm[Hg] 66 mm[Hg] eCW1 ([facility]) Body temperature 96.3 [degF] 96.3 [degF] eCW1 ( [facility]) Systolic blood pressure 140 mm[Hg] 140 mm[Hg] e CW1 ([facility]) Body mass index (BMI) [Ratio] 28.94 kg/m2 28.94 kg/m2 eCW1 ([facility]) Heart rate 79 /min 79 /min eCW1 ([facility]) Respiratory rate 18 /min 18 /min eCW1 ([facility]) Diastolic blood pressure 98 mm[Hg] 98 mm[Hg] MEDENT ([facility], [facility]) states she took her medication this morn ing Systolic blood pressure 196 mm[Hg] 196 mm[Hg] M EDENT ([facility], [facility]) states she took her medication this morn ing Heart rate 74 /min 74 /min MEDENT ([facility], [facility]) Oxygen saturation in Arterial blood by Pulse oximetry 99 % 99 % MEDENT ([facility], [facility]) Body temperature 97.9 [degF] 97.9 [degF] MEDENT ([facility], [facility]) Body weight 184.00 [lb_av] 184.00 [lb_av] MEDEN T ([facility], [facility]) Body height 65 [in_i] 65 [in_i] MEDENT ([facility] 5'5" Body mass index (BMI) [Ratio] 30.6 kg/m2 30.6 k g/m2 MEDENT ([facility]) Patient Treatment Plan of Care Planned Activity Planned Date Details Description Data Source (s) Levothyroxine Sodium 0.075 MG Oral Tablet 12/13/2020 12:00:00 AM ED T eCW1 ([facility]) Levothyroxine Sodium 0.075 MG Oral Tablet 12/13/2020 12:00:00 AM ED T eCW1 ([facility]) Levothyroxine Sodium 0.075 MG Oral Tablet 12/13/2020 12:00:00 AM ED T eCW1 ([facility]) duloxetine 60 MG Delayed Release Oral Capsule 12/12/2020 12:00:00 A M EDT eCW1 ([facility]) duloxetine 60 MG Delayed Release Oral Capsule 12/12/2020 12:00:00 A M EDT eCW1 ([facility]) duloxetine 60 MG Delayed Release Oral Capsule 12/12/2020 12:00:00 A M EDT eCW1 ([facility]) duloxetine 60 MG Delayed Release Oral Capsule 12/12/2020 12:00:00 A M EDT eCW1 ([facility]) Acetaminophen 325 MG / Hydrocodone Bitartrate 7.5 MG O ral Tablet 12/01/2020 12:00:00 AM EDT eCW1 ([facility]) Triamcinolone Acetonide 1 MG/ML Topical Cream 10/11/2020 12:00:00 A M EDT eCW1 ([facility]) Triamcinolone Acetonide 1 MG/ML Topical Cream 10/11/2020 12:00:00 A M EDT eCW1 ([facility]) Triamcinolone Acetonide 1 MG/ML Topical Cream 10/11/2020 12:00:00 A M EDT eCW1 ([facility]) Levothyroxine Sodium 0.05 MG Oral Tablet 10/04/2020 12:00:00 AM EDT eCW1 ([facility]) Levothyroxine Sodium 0.05 MG Oral Tablet 10/04/2020 12:00:00 AM EDT eCW1 ([facility]) Levothyroxine Sodium 0.05 MG Oral Tablet 10/04/2020 12:00:00 AM EDT eCW1 ([facility]) Acetaminophen 325 MG / Hydrocodone Bitartrate 7.5 MG O ral Tablet 10/03/2020 12:00:00 AM EDT eCW1 ([facility]) Acetaminophen 325 MG / Hydrocodone Bitartrate 7.5 MG O ral Tablet 10/03/2020 12:00:00 AM EDT eCW1 ([facility]) Acetaminophen 325 MG / Hydrocodone Bitartrate 7.5 MG O ral Tablet 10/03/2020 12:00:00 AM EDT eCW1 ([facility]) Acetaminophen 325 MG / Hydrocodone Bitartrate 7.5 MG O ral Tablet 10/03/2020 12:00:00 AM EDT eCW1 ([facility]) Acetaminophen 325 MG / Hydrocodone Bitartrate 7.5 MG O ral Tablet 10/03/2020 12:00:00 AM EDT eCW1 ([facility]) Acetaminophen 325 MG / Hydrocodone Bitartrate 7.5 MG O ral Tablet 10/03/2020 12:00:00 AM EDT eCW1 ([facility]) Acetaminophen 325 MG / Hydrocodone Bitartrate 7.5 MG O ral Tablet 10/03/2020 12:00:00 AM EDT eCW1 ([facility]) Acetaminophen 325 MG / Hydrocodone Bitartrate 7.5 MG O ral Tablet 10/03/2020 12:00:00 AM EDT eCW1 ([facility]) Amlodipine 2.5 MG Oral Tablet 09/30/2020 12:00:00 AM EDT eCW1 ([facility]) Amlodipine 2.5 MG Oral Tablet 09/30/2020 12:00:00 AM EDT eCW1 ([facility]) Amlodipine 2.5 MG Oral Tablet 09/30/2020 12:00:00 AM EDT [facility] Amlodipine 2.5 MG Oral Tablet 09/30/2020 12:00:00 AM EDT eCW1 ([facility]) Amlodipine 2.5 MG Oral Tablet 09/30/2020 12:00:00 AM EDT eCW1 ([facility]) Amlodipine 2.5 MG Oral Tablet 09/30/2020 12:00:00 AM EDT eCW1 ([facility]) Acetaminophen 325 MG / Hydrocodone Bitartrate 7.5 MG O ral Tablet 09/12/2020 12:00:00 AM EDT eCW1 ([facility]) Acetaminophen 325 MG / Hydrocodone Bitartrate 7.5 MG O ral Tablet 09/12/2020 12:00:00 AM EDT eCW1 ([facility]) Acetaminophen 325 MG / Hydrocodone Bitartrate 7.5 MG O ral Tablet 09/12/2020 12:00:00 AM EDT eCW1 ([facility]) Acetaminophen 325 MG / Hydrocodone Bitartrate 7.5 MG O ral Tablet 09/12/2020 12:00:00 AM EDT eCW1 ([facility]) Hospital bed _ 08/22/2020 12:00:00 AM EDT eCW1 ([facility]) Hospital bed _ 08/22/2020 12:00:00 AM EDT eCW1 ([facility]) Hospital bed _ 08/22/2020 12:00:00 AM EDT eCW1 ([facility]) Hospital bed _ 08/22/2020 12:00:00 AM EDT eCW1 ([facility]) Hospital bed _ 08/22/2020 12:00:00 AM EDT eCW1 ([facility]) Hospital bed _ 08/22/2020 12:00:00 AM EDT eCW1 ([facility]) Hospital bed _ 08/22/2020 12:00:00 AM EDT eCW1 ([facility]) Hospital bed _ 08/22/2020 12:00:00 AM EDT eCW1 ([facility]) Hospital bed _ 08/22/2020 12:00:00 AM EDT eCW1 ([facility]) Acetaminophen 325 MG / Hydrocodone Bitartrate 7.5 MG O ral Tablet 08/02/2020 12:00:00 AM EDT eCW1 ([facility]) Acetaminophen 325 MG / Hydrocodone Bitartrate 7.5 MG O ral Tablet 08/02/2020 12:00:00 AM EDT eCW1 ([facility]) Blood Pressure Monitor - 07/29/2020 12:00:00 AM EDT eCW1 ([facility]) Blood Pressure Kit - 07/22/2020 12:00:00 AM EDT eCW1 ([facility]) Blood Pressure Kit - 07/22/2020 12:00:00 AM EDT eCW1 ([facility]) Blood Pressure Kit - 07/22/2020 12:00:00 AM EDT eCW1 ([facility]) Spironolactone 25 MG Oral Tablet 07/06/2020 12:00:00 AM EDT [facility] Losartan Potassium 100 MG Oral Tablet 07/06/2020 12:00:00 AM EDT [facility] empagliflozin 10 MG Oral Tablet [Jardiance] 07/05/2020 12:00:00 AM EDT eCW1 ([facility]) empagliflozin 10 MG Oral Tablet [Jardiance] 07/05/2020 12:00:00 AM EDT eCW1 ([facility]) empagliflozin 10 MG Oral Tablet [Jardiance] 07/05/2020 12:00:00 AM EDT eCW1 ([facility]) empagliflozin 10 MG Oral Tablet [Jardiance] 07/05/2020 12:00:00 AM EDT eCW1 ([facility]) empagliflozin 10 MG Oral Tablet [Jardiance] 07/05/2020 12:00:00 AM EDT eCW1 ([facility]) empagliflozin 10 MG Oral Tablet [Jardiance] 07/05/2020 12:00:00 AM EDT eCW1 ([facility]) empagliflozin 10 MG Oral Tablet [Jardiance] 07/05/2020 12:00:00 AM EDT eCW1 ([facility]) empagliflozin 10 MG Oral Tablet [Jardiance] 07/05/2020 12:00:00 AM EDT eCW1 ([facility]) empagliflozin 10 MG Oral Tablet [Jardiance] 07/05/2020 12:00:00 AM EDT eCW1 ([facility]) empagliflozin 10 MG Oral Tablet [Jardiance] 07/05/2020 12:00:00 AM EDT eCW1 ([facility]) empagliflozin 10 MG Oral Tablet [Jardiance] 07/05/2020 12:00:00 AM EDT eCW1 ([facility]) empagliflozin 25 MG Oral Tablet [Jardiance] 07/05/2020 12:00:00 AM EDT eCW1 ([facility]) empagliflozin 25 MG Oral Tablet [Jardiance] 07/05/2020 12:00:00 AM EDT eCW1 ([facility]) empagliflozin 10 MG Oral Tablet [Jardiance] 07/05/2020 12:00:00 AM EDT eCW1 ([facility]) empagliflozin 10 MG Oral Tablet [Jardiance] 07/05/2020 12:00:00 AM EDT eCW1 ([facility]) torsemide 10 MG Oral Tablet 06/08/2020 12:00:00 AM EDT [facility] Losartan Potassium 50 MG Oral Tablet 06/08/2020 12:00:00 AM EDT [facility] Acetaminophen 325 MG / Hydrocodone Bitartrate 5 MG Ora l Tablet 06/07/2020 12:00:00 AM EDT eCW1 ([facility]) Acetaminophen 325 MG / Hydrocodone Bitartrate 5 MG Ora l Tablet 06/07/2020 12:00:00 AM EDT eCW1 ([facility]) Acetaminophen 325 MG / Hydrocodone Bitartrate 5 MG Ora l Tablet 06/07/2020 12:00:00 AM EDT eCW1 ([facility]) Acetaminophen 325 MG / Hydrocodone Bitartrate 5 MG Ora l Tablet 06/07/2020 12:00:00 AM EDT eCW1 ([facility]) Acetaminophen 325 MG / Hydrocodone Bitartrate 5 MG Ora l Tablet 06/07/2020 12:00:00 AM EDT eCW1 ([facility]) Acetaminophen 325 MG / Hydrocodone Bitartrate 5 MG Ora l Tablet 06/07/2020 12:00:00 AM EDT eCW1 ([facility]) Acetaminophen 325 MG / Hydrocodone Bitartrate 5 MG Ora l Tablet 06/07/2020 12:00:00 AM EDT eCW1 ([facility]) 24 HR Metformin hydrochloride 500 MG Extended Release Oral Tablet 06/07/2020 12:00:00 AM EDT [facility] empagliflozin 10 MG Oral Tablet [Jardiance] 06/07/2020 12:00:00 AM EDT [facility] Levothyroxine Sodium 0.025 MG Oral Tablet 06/03/2020 12:00:00 AM ED T eCW1 ([facility]) Levothyroxine Sodium 0.025 MG Oral Tablet 06/03/2020 12:00:00 AM ED T eCW1 ([facility]) Levothyroxine Sodium 0.025 MG Oral Tablet 06/03/2020 12:00:00 AM ED T eCW1 ([facility]) Levothyroxine Sodium 0.025 MG Oral Tablet 06/03/2020 12:00:00 AM ED T eCW1 ([facility]) Levothyroxine Sodium 0.025 MG Oral Tablet 06/03/2020 12:00:00 AM ED T eCW1 ([facility]) Levothyroxine Sodium 0.025 MG Oral Tablet 06/03/2020 12:00:00 AM ED T eCW1 ([facility]) Levothyroxine Sodium 0.025 MG Oral Tablet 06/03/2020 12:00:00 AM ED T eCW1 ([facility]) Levothyroxine Sodium 0.025 MG Oral Tablet 06/03/2020 12:00:00 AM ED T eCW1 ([facility]) Levothyroxine Sodium 0.025 MG Oral Tablet 06/03/2020 12:00:00 AM ED T eCW1 ([facility]) Levothyroxine Sodium 0.025 MG Oral Tablet 06/03/2020 12:00:00 AM ED T eCW1 ([facility]) Losartan Potassium 50 MG Oral Tablet 05/17/2020 12:00:00 AM EDT eCW1 ([facility]) Losartan Potassium 50 MG Oral Tablet 05/17/2020 12:00:00 AM EDT eCW1 ([facility]) Losartan Potassium 50 MG Oral Tablet 05/17/2020 12:00:00 AM EDT eCW1 ([facility]) Losartan Potassium 50 MG Oral Tablet 05/17/2020 12:00:00 AM EDT eCW1 ([facility]) Losartan Potassium 100 MG Oral Tablet 05/17/2020 12:00:00 AM EDT eCW1 ([facility]) Losartan Potassium 100 MG Oral Tablet 05/17/2020 12:00:00 AM EDT eCW1 ([facility]) Losartan Potassium 100 MG Oral Tablet 05/17/2020 12:00:00 AM EDT eCW1 ([facility]) Losartan Potassium 100 MG Oral Tablet 05/17/2020 12:00:00 AM EDT eCW1 ([facility]) Losartan Potassium 100 MG Oral Tablet 05/17/2020 12:00:00 AM EDT eCW1 ([facility]) Losartan Potassium 100 MG Oral Tablet 05/17/2020 12:00:00 AM EDT eCW1 ([facility]) Losartan Potassium 100 MG Oral Tablet 05/17/2020 12:00:00 AM EDT eCW1 ([facility]) Losartan Potassium 50 MG Oral Tablet 05/17/2020 12:00:00 AM EDT [facility] Losartan Potassium 100 MG Oral Tablet 05/17/2020 12:00:00 AM EDT eCW1 ([facility]) Losartan Potassium 100 MG Oral Tablet 05/17/2020 12:00:00 AM EDT eCW1 ([facility]) Acetaminophen 325 MG / Hydrocodone Bitartrate 5 MG Ora l Tablet 05/12/2020 12:00:00 AM EDT eCW1 ([facility]) empagliflozin 10 MG Oral Tablet [Jardiance] 04/21/2020 12:00:00 AM EST eCW1 ([facility]) empagliflozin 10 MG Oral Tablet [Jardiance] 04/21/2020 12:00:00 AM EST eCW1 ([facility]) empagliflozin 10 MG Oral Tablet [Jardiance] 04/21/2020 12:00:00 AM EST eCW1 ([facility]) empagliflozin 10 MG Oral Tablet [Jardiance] 04/21/2020 12:00:00 AM EST eCW1 ([facility]) empagliflozin 10 MG Oral Tablet [Jardiance] 04/21/2020 12:00:00 AM EST eCW1 ([facility]) carvedilol 6.25 MG Oral Tablet 04/15/2020 12:00:00 AM EST [facility] Acetaminophen 325 MG / Hydrocodone Bitartrate 5 MG Ora l Tablet 04/11/2020 12:00:00 AM EST eCW1 ([facility]) Acetaminophen 325 MG / Hydrocodone Bitartrate 5 MG Ora l Tablet 04/11/2020 12:00:00 AM EST eCW1 ([facility]) Acetaminophen 325 MG / Hydrocodone Bitartrate 5 MG Ora l Tablet 04/11/2020 12:00:00 AM EST eCW1 ([facility]) Acetaminophen 325 MG / Hydrocodone Bitartrate 5 MG Ora l Tablet 04/11/2020 12:00:00 AM EST eCW1 ([facility]) Acetaminophen 325 MG / Hydrocodone Bitartrate 5 MG Ora l Tablet 04/11/2020 12:00:00 AM EST eCW1 ([facility]) Acetaminophen 325 MG / Hydrocodone Bitartrate 5 MG Ora l Tablet 04/11/2020 12:00:00 AM EST eCW1 ([facility]) Acetaminophen 325 MG / Hydrocodone Bitartrate 5 MG Ora l Tablet 04/11/2020 12:00:00 AM EST eCW1 ([facility]) Amlodipine 2.5 MG Oral Tablet 04/04/2020 12:00:00 AM EST [facility] Amlodipine 2.5 MG Oral Tablet 04/04/2020 12:00:00 AM EST eCW1 ([facility]) Amlodipine 2.5 MG Oral Tablet 04/04/2020 12:00:00 AM EST eCW1 ([facility]) Amlodipine 2.5 MG Oral Tablet 04/04/2020 12:00:00 AM EST eCW1 ([facility]) Amlodipine 2.5 MG Oral Tablet 04/04/2020 12:00:00 AM EST eCW1 ([facility]) Amlodipine 2.5 MG Oral Tablet 04/04/2020 12:00:00 AM EST eCW1 ([facility]) Amlodipine 2.5 MG Oral Tablet 04/04/2020 12:00:00 AM EST eCW1 ([facility]) Amlodipine 2.5 MG Oral Tablet 04/04/2020 12:00:00 AM EST eCW1 ([facility]) Amlodipine 2.5 MG Oral Tablet 04/04/2020 12:00:00 AM EST eCW1 ([facility]) Amlodipine 2.5 MG Oral Tablet 04/04/2020 12:00:00 AM EST eCW1 ([facility]) Potassium Chloride 10 MEQ Extended Release Oral Tablet 04/02/2020 12:00:00 AM EST [facility] 24 HR Metformin hydrochloride 500 MG Extended Release Oral Tablet 03/19/2020 12:00:00 AM EST [facility] Sucralfate 1000 MG Oral Tablet 03/08/2020 12:00:00 AM EST [facility] Sucralfate 1000 MG Oral Tablet [Carafate] 03/08/2020 12:00:00 AM ES T eCW1 ([facility]) Sucralfate 1000 MG Oral Tablet [Carafate] 03/08/2020 12:00:00 AM ES T eCW1 ([facility]) Sucralfate 1000 MG Oral Tablet [Carafate] 03/08/2020 12:00:00 AM ES T eCW1 ([facility]) Sucralfate 1000 MG Oral Tablet [Carafate] 03/08/2020 12:00:00 AM ES T eCW1 ([facility]) Sucralfate 1000 MG Oral Tablet [Carafate] 03/08/2020 12:00:00 AM ES T eCW1 ([facility]) Sucralfate 1000 MG Oral Tablet [Carafate] 03/08/2020 12:00:00 AM ES T eCW1 ([facility]) Acetaminophen 325 MG / Hydrocodone Bitartrate 5 MG Ora l Tablet 02/25/2020 12:00:00 AM EST eCW1 ([facility]) Acetaminophen 325 MG / Hydrocodone Bitartrate 5 MG Ora l Tablet 02/25/2020 12:00:00 AM EST eCW1 ([facility]) Acetaminophen 325 MG / Hydrocodone Bitartrate 5 MG Ora l Tablet 02/25/2020 12:00:00 AM EST eCW1 ([facility]) torsemide 10 MG Oral Tablet 02/24/2020 12:00:00 AM EST eCW1 ([facility]) torsemide 10 MG Oral Tablet 02/24/2020 12:00:00 AM EST eCW1 ([facility]) torsemide 10 MG Oral Tablet 02/24/2020 12:00:00 AM EST eCW1 ([facility]) torsemide 10 MG Oral Tablet 02/24/2020 12:00:00 AM EST eCW1 ([facility]) torsemide 20 MG Oral Tablet 02/24/2020 12:00:00 AM EST eCW1 ([facility]) torsemide 20 MG Oral Tablet 02/24/2020 12:00:00 AM EST eCW1 ([facility]) torsemide 20 MG Oral Tablet 02/24/2020 12:00:00 AM EST eCW1 ([facility]) torsemide 20 MG Oral Tablet 02/24/2020 12:00:00 AM EST eCW1 ([facility]) torsemide 20 MG Oral Tablet 02/24/2020 12:00:00 AM EST eCW1 ([facility]) torsemide 20 MG Oral Tablet 02/24/2020 12:00:00 AM EST eCW1 ([facility]) torsemide 20 MG Oral Tablet 02/24/2020 12:00:00 AM EST eCW1 ([facility]) torsemide 20 MG Oral Tablet 02/24/2020 12:00:00 AM EST eCW1 ([facility]) torsemide 20 MG Oral Tablet 02/24/2020 12:00:00 AM EST eCW1 ([facility]) torsemide 20 MG Oral Tablet 02/24/2020 12:00:00 AM EST eCW1 ([facility]) torsemide 20 MG Oral Tablet 02/24/2020 12:00:00 AM EST eCW1 ([facility]) torsemide 20 MG Oral Tablet 02/24/2020 12:00:00 AM EST eCW1 ([facility]) torsemide 20 MG Oral Tablet 02/24/2020 12:00:00 AM EST eCW1 ([facility]) torsemide 20 MG Oral Tablet 02/24/2020 12:00:00 AM EST eCW1 ([facility]) torsemide 20 MG Oral Tablet 02/24/2020 12:00:00 AM EST eCW1 ([facility]) torsemide 20 MG Oral Tablet 02/24/2020 12:00:00 AM EST eCW1 ([facility]) torsemide 20 MG Oral Tablet 02/24/2020 12:00:00 AM EST eCW1 ([facility]) torsemide 20 MG Oral Tablet 02/24/2020 12:00:00 AM EST eCW1 ([facility]) torsemide 20 MG Oral Tablet 02/24/2020 12:00:00 AM EST eCW1 ([facility]) torsemide 20 MG Oral Tablet 02/24/2020 12:00:00 AM EST eCW1 ([facility]) Walker - 02/15/2020 12:00:00 AM EST e CW1 ([facility]) Walker - 02/15/2020 12:00:00 AM EST e CW1 ([facility]) Walker - 02/15/2020 12:00:00 AM EST e CW1 ([facility]) Test Strips - 02/09/2020 12:00:00 AM EST eCW1 ([facility]) Test Strips - 02/09/2020 12:00:00 AM EST eCW1 ([facility]) Test Strips - 02/09/2020 12:00:00 AM EST eCW1 ([facility]) Test Strips - 02/09/2020 12:00:00 AM EST eCW1 ([facility]) Test Strips - 02/09/2020 12:00:00 AM EST eCW1 ([facility]) Test Strips - 02/09/2020 12:00:00 AM EST eCW1 ([facility]) 3 ML insulin detemir 100 UNT/ML Pen Injector [Levemir] 02/03/2020 12:00:00 AM EST eCW1 ([facility]) 3 ML insulin detemir 100 UNT/ML Pen Injector [Levemir] 02/03/2020 12:00:00 AM EST eCW1 ([facility]) 3 ML insulin detemir 100 UNT/ML Pen Injector [Levemir] 02/03/2020 12:00:00 AM EST eCW1 ([facility]) 3 ML insulin detemir 100 UNT/ML Pen Injector [Levemir] 02/03/2020 12:00:00 AM EST eCW1 ([facility]) 3 ML insulin detemir 100 UNT/ML Pen Injector [Levemir] 02/03/2020 12:00:00 AM EST eCW1 ([facility]) 3 ML insulin detemir 100 UNT/ML Pen Injector [Levemir] 02/03/2020 12:00:00 AM EST eCW1 ([facility]) 3 ML insulin detemir 100 UNT/ML Pen Injector [Levemir] 02/03/2020 12:00:00 AM EST eCW1 ([facility]) 3 ML insulin detemir 100 UNT/ML Pen Injector [Levemir] 02/03/2020 12:00:00 AM EST eCW1 ([facility]) 3 ML insulin detemir 100 UNT/ML Pen Injector [Levemir] 02/03/2020 12:00:00 AM EST eCW1 ([facility]) 3 ML insulin detemir 100 UNT/ML Pen Injector [Levemir] 02/03/2020 12:00:00 AM EST eCW1 ([facility]) 3 ML insulin detemir 100 UNT/ML Pen Injector [Levemir] 02/03/2020 12:00:00 AM EST eCW1 ([facility]) 3 ML insulin detemir 100 UNT/ML Pen Injector [Levemir] 02/03/2020 12:00:00 AM EST eCW1 ([facility]) 3 ML insulin detemir 100 UNT/ML Pen Injector [Levemir] 02/03/2020 12:00:00 AM EST eCW1 ([facility]) 3 ML insulin detemir 100 UNT/ML Pen Injector [Levemir] 02/03/2020 12:00:00 AM EST eCW1 ([facility]) 3 ML insulin detemir 100 UNT/ML Pen Injector [Levemir] 02/03/2020 12:00:00 AM EST eCW1 ([facility]) 3 ML insulin detemir 100 UNT/ML Pen Injector [Levemir] 02/03/2020 12:00:00 AM EST eCW1 ([facility]) 3 ML insulin detemir 100 UNT/ML Pen Injector [Levemir] 02/03/2020 12:00:00 AM EST eCW1 ([facility]) 3 ML insulin detemir 100 UNT/ML Pen Injector [Levemir] 02/03/2020 12:00:00 AM EST eCW1 ([facility]) 3 ML insulin detemir 100 UNT/ML Pen Injector [Levemir] 02/03/2020 12:00:00 AM EST eCW1 ([facility]) 3 ML insulin detemir 100 UNT/ML Pen Injector [Levemir] 02/03/2020 12:00:00 AM EST eCW1 ([facility]) 3 ML insulin detemir 100 UNT/ML Pen Injector [Levemir] 02/03/2020 12:00:00 AM EST eCW1 ([facility]) 3 ML insulin detemir 100 UNT/ML Pen Injector [Levemir] 02/03/2020 12:00:00 AM EST eCW1 ([facility]) 3 ML insulin detemir 100 UNT/ML Pen Injector [Levemir] 02/03/2020 12:00:00 AM EST eCW1 ([facility]) 3 ML insulin detemir 100 UNT/ML Pen Injector [Levemir] 02/03/2020 12:00:00 AM EST eCW1 ([facility]) 3 ML insulin detemir 100 UNT/ML Pen Injector [Levemir] 02/03/2020 12:00:00 AM EST eCW1 ([facility]) 3 ML insulin detemir 100 UNT/ML Pen Injector [Levemir] 02/03/2020 12:00:00 AM EST eCW1 ([facility]) 3 ML insulin detemir 100 UNT/ML Pen Injector [Levemir] 02/03/2020 12:00:00 AM EST eCW1 ([facility]) 3 ML insulin detemir 100 UNT/ML Pen Injector [Levemir] 02/03/2020 12:00:00 AM EST eCW1 (Formerly [facility]) 3 ML insulin detemir 100 UNT/ML Pen Injector [Levemir] 02/03/2020 12:00:00 AM EST eCW1 (Formerly [facility]) 3 ML insulin detemir 100 UNT/ML Pen Injector [Levemir] 02/03/2020 12:00:00 AM EST eCW1 (Formerly [facility]) 3 ML insulin detemir 100 UNT/ML Pen Injector [Levemir] 02/03/2020 12:00:00 AM EST eCW1 (Formerly [facility]) 3 ML insulin detemir 100 UNT/ML Pen Injector [Levemir] 02/03/2020 12:00:00 AM EST eCW1 (Formerly [facility]) 3 ML insulin detemir 100 UNT/ML Pen Injector [Levemir] 02/03/2020 12:00:00 AM EST eCW1 (Formerly [facility]) 3 ML insulin detemir 100 UNT/ML Pen Injector [Levemir] 02/03/2020 12:00:00 AM EST eCW1 (Formerly [facility]) 3 ML insulin detemir 100 UNT/ML Pen Injector [Levemir] 02/03/2020 12:00:00 AM EST eCW1 (Formerly [facility]) 3 ML insulin detemir 100 UNT/ML Pen Injector [Levemir] 02/03/2020 12:00:00 AM EST eCW1 (Formerly [facility]) 3 ML insulin detemir 100 UNT/ML Pen Injector [Levemir] 02/03/2020 12:00:00 AM EST eCW1 (Formerly [facility]) 3 ML insulin detemir 100 UNT/ML Pen Injector [Levemir] 02/03/2020 12:00:00 AM EST eCW1 (Formerly [facility]) Amlodipine 5 MG Oral Tablet 02/03/2020 12:00:00 AM EST eCW1 ([facility]) 3 ML insulin detemir 100 UNT/ML Pen Injector [Levemir] 02/03/2020 12:00:00 AM EST eCW1 (Formerly [facility]) Amlodipine 5 MG Oral Tablet 02/03/2020 12:00:00 AM EST eCW1 ([facility]) 3 ML insulin detemir 100 UNT/ML Pen Injector [Levemir] 02/03/2020 12:00:00 AM EST eCW1 (Formerly [facility]) 3 ML insulin detemir 100 UNT/ML Pen Injector [Levemir] 02/03/2020 12:00:00 AM EST eCW1 (Formerly [facility]) Amlodipine 5 MG Oral Tablet 02/03/2020 12:00:00 AM EST eCW1 ([facility]) 3 ML insulin detemir 100 UNT/ML Pen Injector [Levemir] 02/03/2020 12:00:00 AM EST eCW1 (Formerly [facility]) Amlodipine 5 MG Oral Tablet 02/03/2020 12:00:00 AM EST eCW1 ([facility]) 3 ML insulin detemir 100 UNT/ML Pen Injector [Levemir] 02/03/2020 12:00:00 AM EST eCW1 ([facility]ly [facility]) 3 ML insulin detemir 100 UNT/ML Pen Injector [Levemir] 02/03/2020 12:00:00 AM EST eCW1 ([facility]ly [facility]) Amlodipine 5 MG Oral Tablet 02/03/2020 12:00:00 AM EST eCW1 ([facility]) 3 ML insulin detemir 100 UNT/ML Pen Injector [Levemir] 02/03/2020 12:00:00 AM EST eCW1 ([facility]) Amlodipine 5 MG Oral Tablet 02/03/2020 12:00:00 AM EST eCW1 ([facility]) Hydrochlorothiazide 12.5 MG Oral Capsule 02/02/2020 12:00:00 AM EST [facility] ferrous sulfate 325 MG Delayed Release Oral Tablet 01/26/2020 12 :00:00 AM EST eCW1 ([facility]) Pen [place] 01/26/2020 12:00:00 AM EST eCW1 ([facility]) ferrous sulfate 325 MG Delayed Release Oral Tablet 01/26/2020 12 :00:00 AM EST eCW1 ([facility]) Pen [place] 01/26/2020 12:00:00 AM EST eCW1 ([facility]) ferrous sulfate 325 MG Delayed Release Oral Tablet 01/26/2020 12 :00:00 AM EST eCW1 ([facility]) Pen [place] 07/10" 01/26/2020 12:00:00 AM EST eCW1 ([facility]) Lancets - 12/07/2019 12:00:00 AM EDT e CW1 ([facility]) Lancets - 12/07/2019 12:00:00 AM EDT e CW1 ([facility]) Lancets - 12/07/2019 12:00:00 AM EDT e CW1 ([facility]) Lancets - 12/07/2019 12:00:00 AM EDT e CW1 ([facility]) Lancets - 12/07/2019 12:00:00 AM EDT e CW1 ([facility]) Lancets - 12/07/2019 12:00:00 AM EDT e CW1 ([facility]) Glucometer 12/07/2019 12:00:00 AM EDT e CW1 ([facility]) Lancets - 12/07/2019 12:00:00 AM EDT e CW1 ([facility]) Lancets - 12/07/2019 12:00:00 AM EDT e CW1 ([facility]) Lancets - 12/07/2019 12:00:00 AM EDT e CW1 ([facility]) Lancets - 12/07/2019 12:00:00 AM EDT e CW1 ([facility]) Lancets - 12/07/2019 12:00:00 AM EDT e CW1 ([facility]) Glucometer 12/07/2019 12:00:00 AM EDT e CW1 ([facility]) Lancets - 12/07/2019 12:00:00 AM EDT e CW1 ([facility]) Glucometer 12/07/2019 12:00:00 AM EDT e CW1 ([facility]) Lancets - 12/07/2019 12:00:00 AM EDT e CW1 ([facility]) Glucometer 12/07/2019 12:00:00 AM EDT e CW1 ([facility]) Glucometer 12/07/2019 12:00:00 AM EDT e CW1 ([facility]) Lancets - 12/07/2019 12:00:00 AM EDT e CW1 ([facility]) Glucometer 12/07/2019 12:00:00 AM EDT e CW1 ([facility]) Lancets - 12/07/2019 12:00:00 AM EDT e CW1 ([facility]) Glucometer 12/07/2019 12:00:00 AM EDT e CW1 ([facility]) Lancets - 12/07/2019 12:00:00 AM EDT e CW1 ([facility]) Glucometer 12/07/2019 12:00:00 AM EDT e CW1 ([facility]) Lancets - 12/07/2019 12:00:00 AM EDT e CW1 ([facility]) Acetaminophen 325 MG / Hydrocodone Bitartrate 5 MG Ora l Tablet 12/03/2019 12:00:00 AM EDT eCW1 ([facility]) Acetaminophen 325 MG / Hydrocodone Bitartrate 5 MG Ora l Tablet 12/03/2019 12:00:00 AM EDT eCW1 ([facility]) Acetaminophen 325 MG / Hydrocodone Bitartrate 5 MG Ora l Tablet 12/03/2019 12:00:00 AM EDT eCW1 ([facility]) Acetaminophen 325 MG / Hydrocodone Bitartrate 5 MG Ora l Tablet 12/03/2019 12:00:00 AM EDT eCW1 ([facility]) Acetaminophen 325 MG / Hydrocodone Bitartrate 5 MG Ora l Tablet 12/03/2019 12:00:00 AM EDT eCW1 ([facility]) Acetaminophen 325 MG / Hydrocodone Bitartrate 5 MG Ora l Tablet 12/03/2019 12:00:00 AM EDT eCW1 ([facility]) Acetaminophen 325 MG / Hydrocodone Bitartrate 5 MG Ora l Tablet 12/03/2019 12:00:00 AM EDT eCW1 ([facility]) Acetaminophen 325 MG / Hydrocodone Bitartrate 5 MG Ora l Tablet 12/03/2019 12:00:00 AM EDT eCW1 ([facility]) Acetaminophen 325 MG / Hydrocodone Bitartrate 5 MG Ora l Tablet 12/03/2019 12:00:00 AM EDT eCW1 ([facility]) Acetaminophen 325 MG / Hydrocodone Bitartrate 5 MG Ora l Tablet 12/03/2019 12:00:00 AM EDT eCW1 ([facility]) gabapentin 100 MG Oral Capsule 11/19/2019 12:00:00 AM EDT [facility] torsemide 20 MG Oral Tablet 11/19/2019 12:00:00 AM EDT [facility] potassium chloride SA (K-DUR,KLOR-CON) 10 MEQ tablet 020 12:00:00 AM EDT [facility] dapagliflozin 5 MG Oral Tablet [Farxiga] 11/10/2019 12:00:00 AM EDT [facility] 24 HR Metformin hydrochloride 500 MG Extended Release Oral Tablet 11/02/2019 12:00:00 AM EDT [facility] carvedilol 3.125 MG Oral Tablet 09/23/2019 12:00:00 AM EDT [facility] Nystatin 536752 UNT/ML Oral Suspension 07/02/2019 12:00:00 AM EDT [facility] Losartan Potassium 100 MG Oral Tablet 12/10/2018 12:00:00 AM EDT [facility] dapagliflozin 10 MG Oral Tablet [Farxiga] 10/31/2018 12:00:00 AM ED T [facility] Furosemide 20 MG Oral Tablet 06/04/2018 12:00:00 AM EDT [facility] 3 ML Insulin Glargine 100 UNT/ML Pen Injector 07/12/2017 12:00:00 A M EDT [facility] [place]-3 Acid Ethyl Esters (SHELTER) 1000 MG Oral Capsule 011 12:00:00 AM T [facility]
[2020-12-25 00:32] LABS: BASO # 0.1 10^3/uL (0.0-0.2); BASO % 0.7 % (0.0-1.0); EOS # 0.2 10^3/uL (0.0-0.5); EOS % 1.6 % (0.0-3.0); HEMATOCRIT 41.5 % (36.0-47.0); HEMOGLOBIN 14.1 g/dl (12.0-15.5); LYMPH # 3.4 10^3/uL (1.5-5.0); LYMPH % 24.2 % (24.0-44.0); MEAN CORPUSCULAR HEMOGLOBIN 28.7 pg (27.0-33.0); MEAN CORPUSCULAR VOLUME 84.3 fl (80.0-96.0); MONO # 1.6 10^3/uL (0.0-0.8); MONO % 11.4 % (2.0-8.0); NEUTROPHILS # 8.8 10^3/uL (1.5-8.5); NEUTROPHILS % 61.7 % (36.0-66.0); PLATELET COUNT, AUTOMATED 255 10^3/uL (150-450); RED BLOOD COUNT 4.92 10^6/uL (4.00-5.40); WHITE BLOOD COUNT 14.2 10^3/uL (4.0-10.0)
[2020-12-25 00:44] LABS: INR 0.99; PROTHROMBIN TIME 13.5 SECONDS (12.7-14.5)
[2020-12-25 00:45] LABS: PARTIAL THROMBOPLASTIN TIME 27.5 SECONDS (25.9-37.0)
[2020-12-25 01:24] LABS: ALBUMIN 3.7 GM/DL (3.2-5.2); BILIRUBIN,DIRECT 0.3 MG/DL (0.0-0.2); CALCIUM LEVEL 10.6 MG/DL (8.8-10.2); CREATININE FOR GFR 1.05 MG/DL (0.55-1.30); FREE T4 1.52 NG/DL (0.76-1.46); GLOMERULAR FILTRATION RATE 55.5 (>45); MAGNESIUM LEVEL 2.1 MG/DL (1.8-2.4); MB/CK RELATIVE INDEX 5.49 (< OR =4); POTASSIUM SERUM 4.3 MEQ/L (3.5-5.1); THYROID STIMULATING HORMONE 2.71 uIU/ML (0.358-3.740); TOTAL PROTEIN 7.7 GM/DL (6.4-8.2); TROPONIN I 0.21 NG/ML (< 0.10)
[2020-12-25] MEDS ORDERED: ACETAMINOPHEN 500 MG TAB PO ONE (01:25)
[2020-12-25] MEDS ORDERED: ONDANSETRON 4MG/2ML VIAL IV ONE (01:35)
[2020-12-25] MEDS ORDERED: MORPHINE 2 MG/ML 1ML VIAL (J2270) IV ONE (01:35)
[2020-12-25] MEDS ORDERED: ISOVUE-370 76% 100ML VIAL As Ordered ONE (02:04)
[2020-12-25 02:42] LABS: CK-MB VALUE MASS 4.8 NG/ML (<3.6); MB/CK RELATIVE INDEX 4.57 (< OR =4); TROPONIN I 0.2 NG/ML (< 0.10)
[2020-12-25 02:59] LABS: RSV AMPLIFICATION NEGATIVE (NEGATIVE)
--- NOTE | 2020-12-25 03:26 | REPVR ---
PROCEDURE INFORMATION: Exam: CT Abdomen And Pelvis With Contrast Exam date and time: 12/25/2020 2:12 AM Age: 70 years old Clinical indication: Nausea and vomiting; Additional info: Nausea, vomiting TECHNIQUE: Imaging protocol: Computed tomography of the abdomen and pelvis with contrast. Radiation optimization: All CT scans at this facility use at least one of these dose optimization techniques: automated exposure control; mA and/or kV adjustment per patient size (includes targeted exams where dose is matched to clinical indication); or iterative reconstruction. Contrast material: ISOVUE 370; Contrast volume: 100 ml; Contrast route: INTRAVENOUS (IV); COMPARISON: CT ANGIO CHEST 02/24/2020 11:47 AM FINDINGS: Lungs: Minimal lingular fibro-atelectatic change. Liver: Nodular surface of the liver. Gallbladder and bile ducts: Status post cholecystectomy. Mild biliary dilation which is attributed to prior cholecystectomy and is likely physiologic. The CBD measures 11 mm with tapering to the ampulla. Pancreas: Normal. No ductal dilation. Spleen: Normal. No splenomegaly. Adrenal glands: Normal. No mass. Kidneys and ureters: There are some small left renal cysts measuring up to 11 mm which are too small to characterize. Stomach and bowel: Borderline distention of small bowel with a few air-fluid levels which is nonspecific with some associated contracted small bowel. Minimal ileus or enteritis is not excluded. Appendix: A normal appendix is seen. Intraperitoneal space: Unremarkable. No free air. No significant fluid collection. Vasculature: There is mild calcification of the abdominal aorta with extension into the iliac arteries. Lymph nodes: Unremarkable. No enlarged lymph nodes. Urinary bladder: Unremarkable as visualized. Reproductive: Status post hysterectomy. Bones/joints: Unremarkable. No acute fracture. Soft tissues: Unremarkable. IMPRESSION: 1. There has been prior cholecystectomy and hysterectomy. 2. Hepatic cirrhosis. 3. Borderline distention of a few small bowel segments in the pelvis with some air-fluid levels which is nonspecific. Minimal ileus or enteritis is not excluded. COMMENTS: Consistent with the [employer]'s Incidental Findings Committee white paper (J Am Jennifer Radiol 2018): Any incidental renal lesion less than 1 cm or classified as too small to characterize, or any incidental cystic renal lesion characterized as simple-appearing, is likely benign. No follow-up imaging is recommended for these lesions per consensus recommendations based on imaging criteria. Electronically signed by: Jm Crowder On 12/25/2020 03:26:10 AM
--- NOTE | 2020-12-25 03:34 | REPVR ---
PROCEDURE INFORMATION: Exam: CTA Chest With Contrast Exam date and time: 12/25/2020 2:12 AM Age: 70 years old Clinical indication: Other: Tachycardia, elevated trop, RO pe TECHNIQUE: Imaging protocol: Computed tomographic angiography of the chest with contrast. 3D rendering (Not supervised by radiologist): MIP and/or 3D reconstructed images were created by the technologist. Radiation optimization: All CT scans at this facility use at least one of these dose optimization techniques: automated exposure control; mA and/or kV adjustment per patient size (includes targeted exams where dose is matched to clinical indication); or iterative reconstruction. Contrast material: ISOVUE 370; Contrast volume: 10 ml; Contrast route: INTRAVENOUS (IV); COMPARISON: CT ANGIO CHEST 02/24/2020 11:47 AM FINDINGS: Pulmonary arteries: The main pulmonary artery measures 33 mm. No pulmonary embolism is identified. Aorta: The ascending thoracic aorta measures 35 mm. Lungs: Minimal ground-glass infiltrates in the lower lobes and minimal scattered fibro-atelectatic change. Pleural spaces: Unremarkable. No pneumothorax. No pleural effusion. Heart: Unremarkable. No cardiomegaly. No pericardial effusion. Lymph nodes: Unremarkable. No enlarged lymph nodes. Gallbladder and bile ducts: Status post cholecystectomy. Bones/joints: Collapse and prominent superior endplate irregularity and fragmentation of L1. There is slight anterior wedge configuration and patchy sclerosis involving T4-T6. Soft tissues: Unremarkable. IMPRESSION: 1. Minimal ground-glass infiltrates in the lower lobes and minimal scattered fibro-atelectatic change. 2. Status post cholecystectomy. 3. Compression and some superior endplate fragmentation of L1 which is new since 02/24/2020. 4. Otherwise negative CTA chest. No pulmonary embolism is identified. Electronically signed by: Jm Crowder On 12/25/2020 03:34:29 AM
--- NOTE | 2020-12-25 03:36 | REPVR ---
PROCEDURE INFORMATION: Exam: XR Chest Exam date and time: 12/25/2020 2:46 AM Age: 70 years old Clinical indication: Other: Elevated troponin; Additional info: Dizziness, elevated trop TECHNIQUE: Imaging protocol: XR of the chest. Views: 1 view. COMPARISON: CT ANGIO CHEST 12/25/2020 2:10 AM FINDINGS: Lungs: Minimal left base linear scar which is unchanged from the prior study. There are no interval infiltrates. Pleural spaces: Unremarkable. No pleural effusion. No pneumothorax. Heart/Mediastinum: Unremarkable. No cardiomegaly. Diaphragm: Mild elevation of the right hemidiaphragm. Bones/joints: Unremarkable. Organs: Status post cholecystectomy. IMPRESSION: Essentially stable chest since 07/31/2020. No acute interval process is identified. Electronically signed by: Jm Crowder On 12/25/2020 03:36:04 AM
[2020-12-25] MEDS ORDERED: LEVO75TA4 PO (05:04)
[2020-12-25] MEDS ORDERED: LEVE1INJ5 SUBQ (05:04)
[2020-12-25] MEDS ORDERED: AMLO2.5T3 PO (05:08)
[2020-12-25] MEDS ORDERED: DULO60CA35 PO (05:08)
[2020-12-25] MEDS ORDERED: ANEXSIA, NORCO 7.5MG/325MG TABLET(HYDROCODONE/APAP) PO PRN (05:10)
[2020-12-25] MEDS ORDERED: HOME MED LIST COMPLETE! XX SCH (05:10)
[2020-12-25] MEDS ORDERED: DEXTROSE 50% 50 ML SYRINGE IV PRN (05:10)
[2020-12-25] MEDS ORDERED: tiZANidine 4 MG TAB PO PRN (05:10)
[2020-12-25] MEDS ORDERED: MAALOX 30 ML SUSP *UDC PO PRN (05:10)
[2020-12-25] MEDS ORDERED: GLUCAGON INJ 1MG VIAL SC PRN (05:10)
[2020-12-25] MEDS ORDERED: MOM 30ML SUSPENSION UDC PO PRN (05:10)
[2020-12-25] MEDS ORDERED: GLUCOSE 4GM CHEW TABLET PO PRN (05:10)
--- OUTSIDE RECORDS SUMMARY | 2020-12-25 05:22 | CCD ---
Author Author [facility] Organization [facility] Address Unknown Phone Unavailable Support Name Relationship Address Phone RE Next Of Kin Unknown Unavailable Junior Gallo Next Of Kin Unknown Unavailable MARIO ALBERTO MILLER Next Of Kin [address] [place] [address] LEDGER, (CAPPY) CAPITOLA Next Of Kin [address] [place] [address] LEDGER, CAPPY Next Of Kin [address] [address] DISABILITY Next Of Kin UN UN, UN UN MARIANO FLEMING Next Of Kin [address] [facility] [address] [place] [address] NELLIE FLEMING Next Of Kin [address] [place] [address] NELLIE ANDERS Next Of Kin [address] [place] [address] Kimberly Villanueva Next Of Kin [address] [place] [address] 315 Kristopher Barrow MD Next Of Kin [address] [place] [address] JUNIOR BELTRE Next Of Kin [address] [place] [id number] DALE [place] [address] DALE WALTERS Next Of Kin [address] [facility] [address] [place] [address] [employer] Next Of Kin [address] [place] [address] [employer] [place] [address] Gilson SMITH JR Next Of Kin [address] [place] [address] [employer] Next [place] [address] [facility] Next [place] [address] DEEP FLEMING Next Of Kin [address] [place] [address] UE Next Of Kin Unknown Unavailable SATISH [place] [address] Unavailable MARTHA FLEMING Next Of Kin [address] [place] [address] ANGELA KINGSLEY Next Of Kin Unknown Mario Alberto Fleming Next Of Kin Unknown DISABLED Next Of Kin Unknown Unavailable [place] [address] JUNIOR MILLER Next Of Kin [address] [place] [address] MARIANA SMITH Next Of Kin [address] [facility] [address] [place] [address] MARIO ALBERTO MILLER ECON [address] [place] [address] Unavailable LedAlvaro seymour (Cappy) ECON Unknown Unavai lable Mario Alberto Fleming ECON Unknown [phone] Care Team Providers Care Clinical Sociologist Name Role Phone Catalino Dunn Cara MASTER CONTROL TECHNICIAN Unavailable Unavailable Kocan, J Cara MASTER CONTROL TECHNICIAN Unavailable Unavailable Kocan, J Cara MASTER CONTROL TECHNICIAN Unavailable Unavailable Kocan, J Cara MASTER CONTROL TECHNICIAN Unavailable Unavailable Kocan, J Cara MASTER CONTROL TECHNICIAN Unavailable Unavailable Kocan, J Cara MASTER CONTROL TECHNICIAN Unavailable Unavailable Kocan, J Cara MASTER CONTROL TECHNICIAN Unavailable Unavailable Kocan, J Cara MASTER CONTROL TECHNICIAN Unavailable Unavailable Kocan, J Cara MASTER CONTROL TECHNICIAN Unavailable Unavailable Kocan, J Cara MASTER CONTROL TECHNICIAN Unavailable Unavailable Kocan, J Cara MASTER CONTROL TECHNICIAN Unavailable Unavailable Kocan, J Cara MASTER CONTROL TECHNICIAN Unavailable Unavailable Kocan, J Cara MASTER CONTROL TECHNICIAN Unavailable Unavailable SYSTEM IN, NOT IN PROVIDER [...] AYDIN WELLS Unavailable Unavailable Fish, Johnna Thompson [facility], PA-C Unavailable Unavailabl e Fish, Johnna Thompson [facility], PA-C Unavailable Unavailabl e Fish, Johnna Thompson [facility], PA-C Unavailable Unavailabl e Fish, Johnna Thompson [facility], PA-C Unavailable Unavailabl e Fish, Johnna Thompson [facility], PA-C Unavailable Unavailabl e Fish, Johnna Thompson [facility], PA-C Unavailable Unavailabl e Fish, Johnna Donna [facility], PA-C Unavailable Unavailabl e Fish, Johnna Thompson [facility], PA-C Unavailable Unavailabl e Fish, Johnna Thompson [facility], PA-C Unavailable Unavailabl e Fish, Johnna Thompson [facility], PA-C Unavailable Unavailabl e Fish, Johnna Thompson [facility], PA-C Unavailable Unavailabl e Fish, Johnna Thompson [facility], PA-C Unavailable Unavailabl e Fish, Johnna Thompson [facility], PA-C Unavailable Unavailabl e Fish, [facility], [facility] Unavailable Unavailabl e Fish, [facility], PA-C Unavailable Unavailabl e Fish, [facility], PA-C Unavailable Unavailabl e Fish, [facility], PA-C Unavailable Unavailabl e Fish, [facility], PA-C Unavailable Unavailabl e Fish, [facility], PA-C Unavailable Unavailabl e Fish, [facility], PA-C Unavailable Unavailabl e Fish, [facility], PA-C Unavailable Unavailabl e Fish, [facility], PA-C Unavailable Unavailabl e Fish, [facility], PA-C Unavailable Unavailabl e Fish, [facility], PA-C Unavailable Unavailabl e Fish, [facility], PA-C Unavailable Unavailabl e Fish, [facility], PA-C Unavailable Unavailabl e Fish, [facility], PA-C Unavailable Unavailabl e Fish, [facility], PA-C Unavailable Unavailabl e Fish, [facility], PA-C Unavailable Unavailabl e Fish, [facility], PA-C Unavailable Unavailabl e Fish, [facility], PA-C Unavailable Unavailabl e Fish, [facility], PA-C Unavailable Unavailabl e Fish, [facility], PA-C Unavailable Unavailabl e Fish, [facility], PA-C Unavailable Unavailabl e Fish, [facility], PA-C Unavailable Unavailabl e Fish, [facility], PA-C Unavailable Unavailabl e NILAM KEARNS [...] Unavailable DAYO, A SILVERIO DO Unavailable Unavailable DAOY, A SILVERIO DO Unavailable Unavailable DAYO, A [...] is protected by Article 27-F of the [facility] Public Health law. If you continue you may have access to information: Regarding HIV / AIDS; Provided by facilities licensed or operated by the [facility] Office of Mental Health; or Provided by the [facility] Office for People With Developmental Disabilities. If such information is present, then the following [facility] mandated warning applies: This information has been [...] law may result in a fine or long-term sentence or both. A general authorization for the release of medical or other information is NOT sufficient authorization for further disc losure. Family History Family Member Name Family Member Gender Family Member Status Date o f Status Description Data Source(s) Unknown Unknown Problem MEDENT ([facility], ) Encounters Encounter Providers Location Date Indications Data Source(s ) Unknown [address] [facility] Y [address] 12/19/2020 12:00:00 AM EDT eCW1 (Critical access hospital) Unknown [address] [facility] Y [address] 12/13/2020 12:00:00 AM EDT eCW1 (Critical access hospital) Outpatient [address] [facility] N Y [address] 12/12/2020 12:00:00 AM EDT eCW1 (Critical access hospital) Unknown [address] [facility] Y [address] 12/12/2020 12:00:00 AM EDT eCW1 (Critical access hospital) Unknown [address] [facility] Y [address] 12/01/2020 12:00:00 AM EDT [facility]CW1 [facility] Outpatient Attender: Zakia Conti MD Main [facility] 10/19/2020 02:15:00 PM EDT MEDENT ([facility] EDEN hurtado) Outpatient Attender: Cara ANGUIANO SJP.CARLOS ENRIQUE-SJP.CARLOS ENRIQUE 2020 12:00:00 AM EDT - 10/12/2020 12:16:[address] [facility] Unknown [address] [facility], [place] [address] 10/11/2020 12:00:00 AM EDT [facility] Outpatient [address] [facility] Y [address] 10/11/2020 12:00:00 AM EDT eCW1 ([facility]) Unknown [address] [facility] Y [address] 10/06/2020 12:00:00 AM EDT eCW1 ([facility]) Outpatient Attender: Selma Wilson/Osman/Win/Briana corcoran 10/04/2020 11:00:00 AM EDT MEDENT ([facility] EDEN Daniels) Unknown [address] [facility], [place] [address] 10/04/2020 12:00:00 AM EDT eCW1 ([facility]) Outpatient [address] [facility] Y [address] 10/03/2020 12:00:00 AM EDT eCW1 ([facility]) Unknown [address] [facility] Y [address] 10/03/2020 12:00:00 AM EDT eCW1 ([facility]) Unknown [address] [facility] Y [address] 09/30/2020 12:00:00 AM EDT eCW1 ([facility]) Unknown [address] [facility] Y [address] 09/29/2020 12:00:00 AM EDT eCW1 (Critical access hospital) OFFICE OUTPATIENT VISIT 15 MINUTES Attender: Donna PETERSON PA-C Physical Therapy 09/21/2020 10:30:00 AM EDT MEDENT ([facility]) Outpatient Attender: ANGY Pierce/Osman/Win/Lio sue 09/20/2020 03:40:00 PM EDT MEDENT ([facility]) Unknown [address] [facility] [address] 09/15/2020 12:00:00 AM EDT eCW1 (Critical access hospital) Unknown [address] [facility] [address] 09/12/2020 12:00:00 AM EDT eCW1 (Critical access hospital) Outpatient Attender: NILAM KEARNS MD SJP.CARLOS ENRIQUE-SJP.CARLOS ENRIQUE 12:00:00 AM EDT - 09/07/2020 12:16:15 PM EDT [facility] Unknown [address] [facility] [address] 09/05/2020 12:00:00 AM EDT eCW1 (Critical access hospital) Unknown [address] [facility] [address] 09/01/2020 12:00:00 AM EDT eCW1 (Critical access hospital) Unknown [address] [facility] [address] 09/01/2020 12:00:00 AM EDT eCW1 (Critical access hospital) Unknown [address] [facility] [address] 08/31/2020 12:00:00 AM EDT eCW1 (Critical access hospital) Office Visit, Est Pt., Level 4 PC [address] [place] [address] 08/22/2020 12:00:00 AM EDT eCW1 ([facility]) Outpatient Attender: KASSY ZEPEDA Physical Therapy 08/18/2020 01:15:00 PM EDT MEDENT ([facility]) Outpatient Attender: Zakia Conti MD Main office - [place] 08/09/2020 09:30:00 AM EDT MEDENT ([facility]) Office Visit, Est Pt., Level 4 PC [address] [place] [address] 08/02/2020 12:00:00 AM EDT eCW1 ([facility]) Unknown [address] [facility], [place] [address] 08/02/2020 12:00:00 AM EDT eCW1 (Critical access hospital) Outpatient Attender: AYDIN Wilson/Osman/Win/Frannie zeng 08/01/2020 03:30:00 PM EDT MEDENT ([facility]) Unknown [address] [facility] [address] 07/29/2020 12:00:00 AM EDT eCW1 (Critical access hospital) Unknown [address] [facility] [address] 07/26/2020 12:00:00 AM EDT eCW1 (Critical access hospital) Outpatient JAYDACARLOS ENRIQUE 07/22/2020 12:00:00 AM EDT [facility] Office Visit, Est Pt., Level 4 PC [address] [place] [address] 07/20/2020 12:00:00 AM EDT eCW1 ([facility]) Unknown [address] [facility], [facility] [address] 07/15/2020 12:00:00 AM EDT eCW1 (Critical access hospital) OFFICE OUTPATIENT VISIT 15 MINUTES Attender: KASSY ZEPEDA Physical Therapy 07/13/2020 10:30:00 AM EDT MEDENT ([facility]) Outpatient Attender: NILAM MONTELONGOCARLOS ENRIQUE 12:00:00 AM EDT - 07/06/2020 11:32:02 AM EDT [facility] Unknown [address] [facility], [place] [address] 07/06/2020 12:00:00 AM EDT eCW1 (Critical access hospital) Office Visit, Est Pt., Level 4 PC [address] [place] [address] 07/05/2020 12:00:00 AM EDT eCW1 ([facility]) Unknown [address] [facility], [place] [address] 07/05/2020 12:00:00 AM EDT eCW1 (Critical access hospital) Unknown [address] [facility] Y [address] 07/05/2020 12:00:00 AM EDT eCW1 (Critical access hospital) Unknown [address] [facility] Y [address] 06/22/2020 12:00:00 AM EDT eCW1 (Critical access hospital) Unknown [address] [facility], [facility] [address] 06/21/2020 12:00:00 AM EDT eCW1 (Critical access hospital) Unknown [address] [facility], [place] [address] 06/17/2020 12:00:00 AM EDT eCW1 (Critical access hospital) Office Visit, Est Pt., Level 2 FC [address] [place] [address] 06/13/2020 12:00:00 AM EDT eCW1 ([facility]) Unknown [address] [facility] Y [address] 06/09/2020 12:00:00 AM EDT eCW1 (Critical access hospital) Outpatient Attender: NILAM PULIDO.CARLOS ENRIQUE-SJANNIE 10:05:07 AM EDT - 06/08/2020 11:16:32 AM EDT [facility] Unknown [address] [facility] Y [address] 06/08/2020 12:00:00 AM EDT eCW1 ([facility]) Unknown [address] [facility], [place] [address] 06/06/2020 12:00:00 AM EDT [facility]CW[facility] Outpatient Attender: KASSY ZEPEDA Physical Therapy 05/26/2020 02:15:00 PM EDT MEDENT ([facility]) Unknown [address] [facility] [address] 05/26/2020 12:00:00 AM EDT eCW1 ([facility]) Unknown [address] [facility], [place] [address] 05/23/2020 12:00:00 AM EDT eCW1 [facility] Unknown [address] [facility], [place] [address] 05/18/2020 12:00:00 AM EDT eCW1 [facility] Outpatient [address] [facility], [place] [address] 05/12/2020 12:00:00 AM EDT eCW1 ([facility]) Unknown [address] [facility], [place] [address] 05/06/2020 12:00:00 AM EST [facility]CW[facility] Outpatient [address] [facility], [place] [address] 05/03/2020 12:00:00 AM EST eCW1 ([facility]) Unknown [address] [facility], [place] [address] 05/03/2020 12:00:00 AM EST eCW1 ([facility]) Unknown [address] [facility], [place] [address] 05/03/2020 12:00:00 AM EST eCW1 ([facility]) Unknown [address] [facility] Y [address] 04/21/2020 12:00:00 AM EST eCW1 [facility] Outpatient Attender: NILAM KEARNS MD SJP.CARLOS ENRIQUE-SJP.CARLOS ENRIQUE 12:00:00 AM EST - 04/15/2020 03:42:03 PM EST [facility] [address] [facility], [place] [address] 04/11/2020 12:00:00 AM EST [facility]CW1 [facility] Outpatient [address] [facility], [place] [address] 04/05/2020 12:00:00 AM EST [facility]CW1 [facility] Outpatient [address] [facility], [place] [address] 04/04/2020 12:00:00 AM EST eCW1 [facility] Outpatient Attender: ANGY Pierce/Osman/Win/Lio sue 03/24/2020 08:10:00 AM EST MED[facility] ([facility]) Unknown [address] [facility], N [place] [address] 03/21/2020 12:00:00 AM EST eCW1 [facility] Unknown [address] [facility], [place] [address] 03/15/2020 12:00:00 AM EST eCW1 [facility] Unknown [address] [facility], [place] [address] 03/08/2020 12:00:00 AM EST eCW1 [facility] Outpatient [address] [facility], [place] [address] 03/08/2020 12:00:00 AM EST eCW1 ([facility] Unknown [address] [facility], [place] [address] 03/08/2020 12:00:00 AM EST eCW1 ([facility] Unknown [address] [facility], [place] [address] 03/08/2020 12:00:00 AM EST eCW1 ([facility] Unknown [address] [facility], [place] [address] 02/25/2020 12:00:00 AM EST eCW1 ([facility]) Unknown [address] [facility], [place] [address] 02/25/2020 12:00:00 AM EST eCW1 ([facility]) Outpatient [address] [facility], [place] [address] 02/23/2020 12:00:00 AM EST eCW1 ([facility]) Unknown [address] [facility], [place] [address] 02/23/2020 12:00:00 AM EST eCW1 ([facility]) Unknown [address] [facility] Y [address] 02/23/2020 12:00:00 AM EST eCW1 ([facility]) Unknown [address] [facility] N Y [address] 02/22/2020 12:00:00 AM EST eCW1 ([facility]) Unknown [address] [facility], [place] [address] 02/22/2020 12:00:00 AM EST eCW1 ([facility]) Unknown [address] [facility] N Y [address] 02/15/2020 12:00:00 AM EST eCW1 ([facility]) Unknown [address] [facility] N Y [address] 02/15/2020 12:00:00 AM EST eCW1 ([facility]) Unknown [address] [facility], [place] [address] 02/12/2020 12:00:00 AM EST eCW1 ([facility]) Unknown [address] [facility] Y [address] 02/10/2020 12:00:00 AM EST eCW1 [facility] Outpatient Attender: AYDIN Wilson/Osman/Win/Frannie zeng 02/09/2020 08:00:00 AM EST [facility] ([facility] Office Visit, Est Pt., Level 4 PC [address] [place] [address] 02/09/2020 12:00:00 AM EST eCW1 ([facility]) Unknown [address] [facility] [address] 02/04/2020 12:00:00 AM EST eCW1 ([facility]) Unknown [address] [facility] [address] 02/03/2020 12:00:00 AM EST eCW1 ([facility]) Unknown [address] [facility] Y [address] 01/29/2020 12:00:00 AM EST eCW1 ([facility]) Unknown [address] [facility] [address] 01/29/2020 12:00:00 AM EST eCW1 ([facility]) Outpatient [address] [facility] [address] 01/26/2020 12:00:00 AM EST eCW1 ([facility] Unknown [address] [facility] [address] 01/20/2020 12:00:00 AM EST eCW1 ([facility]) Outpatient Attender: ANGY Pierce/Osman/Win/Lio sue 01/14/2020 12:40:00 PM EST MED[facility] ([facility]) Unknown [address] [facility] Y [address] 01/08/2020 12:00:00 AM EST eCW1 [facility] Unknown [address] [facility] Y [address] 01/06/2020 12:00:00 AM EST eCW1 ([facility]) Unknown [address] [facility] [address] 12/31/2019 12:00:00 AM EST eCW1 ([facility]) Outpatient Attender: NILAM PULIDO.CARLOS ENRIQUE-SJP.CARLOS ENRIQUE 0 12:00:00 AM EST - 12/30/2019 09:40:17 AM EST [facility] Unknown [address] [facility] [place] [address] 12/30/2019 12:00:00 AM EST eCW1 ([facility] Unknown [address] [facility], [place] [address] 12/25/2019 12:00:00 AM EDT eCW1 ([facility] Unknown [address] [facility] [place] [address] 12/11/2019 12:00:00 AM EDT eCW1 ([facility] Unknown [address] [facility] [place] [address] 12/08/2019 12:00:00 AM EDT eCW1 ([facility]) Unknown [address] [facility], [place] [address] 12/07/2019 12:00:00 AM EDT eCW1 ([facility]) Office Visit Attender: KASSY ZEPEDA Physical Therapy 12/04/2019 04:00:00 PM EDT MEDENT ([facility]) Unknown [address] [facility] [address] 12/03/2019 12:00:00 AM EDT eCW1 ([facility] Unknown [address] [facility] N Y [address] 12/03/2019 12:00:00 AM EDT eCW1 ([facility] Unknown [address] [facility] N Y [address] 12/02/2019 12:00:00 AM EDT eCW1 ([facility] Outpatient [address] [facility] Y [address] 12/01/2019 12:00:00 AM EDT eCW1 ([facility]) Outpatient Referrer: PROVIDER SYSTEM IN 11/13/2019 1 2:27:00 PM EDT 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 [facility] mild to mod cord compression of C5 and C 6 Outpatient Attender: KASSY mallory 11/06/2019 02:45:00 PM EDT MEDENT ([facility], [facility]) <td ID="encounterTypeDescriptionID0">1 Y ear Follow-Up</td><td>Silverio Mustafa DO</td><td>Aydin Weaver MD [facility]</td><td>10/05/2020</td><td>04/07/2019 11:50AM</td><td>11:08AM</td><td><content ID="encounterDiagnosisID0-0">History of Nicotine Dependence</content>, <content ID="encounterDiagnosisID0-1">Essential Hypertension</content>, <content ID="encounterDiagnosisID0-2">Retinopathy Hypertensive</content>, <content ID="encounterDiagnosisID0-3">Taking Medication For Diabetes Long-term Use of Insulin</content>, <content ID="encounterDiagnosisID0-4">Dry Eye Syndrome Both Eyes</content>, <content ID="encounterDiagnosisID0-5">Borderline Glaucoma Ocular Hypertension Both Eyes</content>, <content ID="encounterDiagnosisID0-6">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</content>, <content ID="encounterDiagnosisID0-7">Pseudophakia</content>, <content ID="encounterDiagnosisID0-8">Posterior Capsule Opacification Eccentric Capsule Both Eyes</content></td>Outpatient Attender: SILVERIO Swartz MD [facility] 04/07/2019 11:50:00 AM EST - 10/05/2020 11:08:00 AM ED T Posterior Capsule Opacification Eccentric Capsule Both EyesPseudophakiaHistory of Nicotine DependenceEssential Hypertension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Taking Medication For Diabetes Long-term Use of Insulin Retinopathy HypertensiveBorderline Glaucoma Ocular Hypertension Both EyesDry Eye Syndrome Both Eyes SHANE (Aydin Toribio MD [facility]) Posterior Capsule Opacification Eccentri c Capsule Both [...] EDT active Levothyroxine Sodium 75 MCG eCW1 ([facility]) Levothyroxine Sodium 0.075 MG Oral Tablet Levothyroxin e Sodium 75 MCG Levothyroxine Sodium 75 MCG 12/13/2020 12:00:00 AM EDT active Levothyroxine Sodium 75 MCG eCW1 ([facility]) Levothyroxine Sodium 0.075 MG Oral Tablet Levothyroxin e Sodium 75 MCG Levothyroxine Sodium 75 MCG 12/13/2020 12:00:00 AM EDT active Levothyroxine Sodium 75 MCG eCW1 ([facility]) duloxetine 60 MG Delayed Release Oral Capsule DULoxeti ne HCl 60 MG DULoxetine HCl 60 MG 12/12/2020 12:00:00 AM EDT 1.0 {capsule} a ctive DULoxetine HCl 60 MG eCW1 ([facility]) duloxetine 60 MG Delayed Release Oral Capsule DULoxeti ne HCl 60 MG DULoxetine HCl 60 MG 12/12/2020 12:00:00 AM EDT 1.0 {capsule} a ctive DULoxetine HCl 60 MG eCW1 ([facility]) duloxetine 60 MG Delayed Release Oral Capsule DULoxeti ne HCl 60 MG DULoxetine HCl 60 MG 12/12/2020 12:00:00 AM EDT 1.0 {capsule} a ctive DULoxetine HCl 60 MG eCW1 ([facility]) duloxetine 60 MG Delayed Release Oral Capsule DULoxeti ne HCl 60 MG DULoxetine HCl 60 MG 12/12/2020 12:00:00 AM EDT 1.0 {capsule} a ctive DULoxetine HCl 60 MG eCW1 ([facility]) Acetaminophen 325 MG / Hydrocodone Brielle trate 7.5 MG Oral Tablet HYDROcodone- Acetaminophen 7.5-325 MG HYDROcodone-Acetaminophen 7.5-325 MG 12/01/2020 12:00:00 AM EDT 1.0 {tablet_as_needed} active HYDROcodone- Acetaminophen 7.5-325 MG eCW1 ([facility]) Acetaminophen 325 MG / Hydrocodone Brielle trate 7.5 MG Oral Tablet HYDROcodone- Acetaminophen 7.5-325 MG HYDROcodone-Acetaminophen 7.5-325 MG 12/01/2020 12:00:00 AM EDT 1.0 {tablet_as_needed} active HYDROcodone- Acetaminophen 7.5-325 MG eCW1 ([facility]) Acetaminophen 325 MG / Hydrocodone Brielle trate 7.5 MG Oral Tablet HYDROcodone- Acetaminophen 7.5-325 MG HYDROcodone-Acetaminophen 7.5-325 MG 12/01/2020 12:00:00 AM EDT 1.0 {tablet_as_needed} active HYDROcodone- Acetaminophen 7.5-325 MG eCW1 ([facility]) Acetaminophen 325 MG / Hydrocodone Brielle trate 7.5 MG Oral Tablet HYDROcodone- Acetaminophen 7.5-325 MG HYDROcodone-Acetaminophen 7.5-325 MG 12/01/2020 12:00:00 AM EDT 1.0 {tablet_as_needed} active HYDROcodone- Acetaminophen 7.5-325 MG eCW1 ([facility]) Acetaminophen 325 MG / Hydrocodone Brielle trate 7.5 MG Oral Tablet HYDROcodone- Acetaminophen 7.5-325 MG HYDROcodone-Acetaminophen 7.5-325 MG 12/01/2020 12:00:00 AM EDT 1.0 {tablet_as_needed} active HYDROcodone- Acetaminophen 7.5-325 MG eCW1 ([facility]) Primidone 50 MG Oral Tablet Primidone 10/19/2020 12:00:00 AM EDT active MEDENT ([facility], ) Triamcinolone Acetonide 1 MG/ML Topical Cream Triamcin olone Acetonide 0.1 % Triamcinolone Acetonide 0.1 % 10/11/2020 12:00:00 AM EDT active Triamcinolone Acetonide 0.1 % eCW1 ([facility]) Triamcinolone Acetonide 1 MG/ML Topical Cream Triamcin olone Acetonide 0.1 % Triamcinolone Acetonide 0.1 % 10/11/2020 12:00:00 AM EDT active Triamcinolone Acetonide 0.1 % eCW1 ([facility]) Triamcinolone Acetonide 1 MG/ML Topical Cream Triamcin olone Acetonide 0.1 % Triamcinolone Acetonide 0.1 % 10/11/2020 12:00:00 AM EDT active Triamcinolone Acetonide 0.1 % eCW1 ([facility]) Triamcinolone Acetonide 1 MG/ML Topical Cream Triamcin olone Acetonide 0.1 % Triamcinolone Acetonide 0.1 % 10/11/2020 12:00:00 AM EDT active Triamcinolone Acetonide 0.1 % eCW1 ([facility]) Triamcinolone Acetonide 1 MG/ML Topical Cream Triamcin olone Acetonide 0.1 % Triamcinolone Acetonide 0.1 % 10/11/2020 12:00:00 AM EDT active Triamcinolone Acetonide 0.1 % eCW1 ([facility]) Triamcinolone Acetonide 1 MG/ML Topical Cream Triamcin olone Acetonide 0.1 % Triamcinolone Acetonide 0.1 % 10/11/2020 12:00:00 AM EDT active Triamcinolone Acetonide 0.1 % eCW1 ([facility]) Triamcinolone Acetonide 1 MG/ML Topical Cream Triamcin olone Acetonide 0.1 % Triamcinolone Acetonide 0.1 % 10/11/2020 12:00:00 AM EDT active Triamcinolone Acetonide 0.1 % eCW1 ([facility]) Levothyroxine Sodium 0.05 MG Oral Tablet Levothyroxine Sodium 50 MCG Levothyroxine Sodium 50 MCG 10/04/2020 12:00:00 AM EDT active Levothyroxine Sodium 50 MCG eCW1 ([facility]) Levothyroxine Sodium 0.05 MG Oral Tablet Levothyroxine Sodium 50 MCG Levothyroxine Sodium 50 MCG 10/04/2020 12:00:00 AM EDT active Levothyroxine Sodium 50 MCG eCW1 ([facility]) Levothyroxine Sodium 0.05 MG Oral Tablet Levothyroxine Sodium 50 MCG Levothyroxine Sodium 50 MCG 10/04/2020 12:00:00 AM EDT active Levothyroxine Sodium 50 MCG eCW1 ([facility]) Levothyroxine Sodium 0.05 MG Oral Tablet Levothyroxine Sodium 50 MCG Levothyroxine Sodium 50 MCG 10/04/2020 12:00:00 AM EDT active Levothyroxine Sodium 50 MCG eCW1 ([facility]) Levothyroxine Sodium 0.05 MG Oral Tablet Levothyroxine Sodium 50 MCG Levothyroxine Sodium 50 MCG 10/04/2020 12:00:00 AM EDT active Levothyroxine Sodium 50 MCG eCW1 ([facility]) Levothyroxine Sodium 0.05 MG Oral Tablet Levothyroxine Sodium 50 MCG Levothyroxine Sodium 50 MCG 10/04/2020 12:00:00 AM EDT active Levothyroxine Sodium 50 MCG eCW1 ([facility]) Acetaminophen 325 MG / Hydrocodone Brielle trate 7.5 MG Oral Tablet HYDROcodone- Acetaminophen 7.5-325 MG HYDROcodone-Acetaminophen 7.5-325 MG 10/03/2020 12:00:00 AM EDT 1.0 {tablet_as_needed} active HYDROcodone- Acetaminophen 7.5-325 MG eCW1 ([facility]) Acetaminophen 325 MG / Hydrocodone Brielle trate 7.5 MG Oral Tablet HYDROcodone- Acetaminophen 7.5-325 MG HYDROcodone-Acetaminophen 7.5-325 MG 10/03/2020 12:00:00 AM EDT 1.0 {tablet_as_needed} active HYDROcodone- Acetaminophen 7.5-325 MG eCW1 ([facility]) Acetaminophen 325 MG / Hydrocodone Brielle trate 7.5 MG Oral Tablet HYDROcodone- Acetaminophen 7.5-325 MG HYDROcodone-Acetaminophen 7.5-325 MG 10/03/2020 12:00:00 AM EDT 1.0 {tablet_as_needed} active HYDROcodone- Acetaminophen 7.5-325 MG eCW1 ([facility]) Acetaminophen 325 MG / Hydrocodone Brielle trate 7.5 MG Oral Tablet HYDROcodone- Acetaminophen 7.5-325 MG HYDROcodone-Acetaminophen 7.5-325 MG 10/03/2020 12:00:00 AM EDT 1.0 {tablet_as_needed} active HYDROcodone- Acetaminophen 7.5-325 MG eCW1 ([facility]) Acetaminophen 325 MG / Hydrocodone Brielle trate 7.5 MG Oral Tablet HYDROcodone- Acetaminophen 7.5-325 MG HYDROcodone-Acetaminophen 7.5-325 MG 10/03/2020 12:00:00 AM EDT 1.0 {tablet_as_needed} active HYDROcodone- Acetaminophen 7.5-325 MG eCW1 ([facility]) Acetaminophen 325 MG / Hydrocodone Brielle trate 7.5 MG Oral Tablet HYDROcodone- Acetaminophen 7.5-325 MG HYDROcodone-Acetaminophen 7.5-325 MG 10/03/2020 12:00:00 AM EDT 1.0 {tablet_as_needed} active HYDROcodone- Acetaminophen 7.5-325 MG eCW1 ([facility]) Acetaminophen 325 MG / Hydrocodone Brielle trate 7.5 MG Oral Tablet HYDROcodone- Acetaminophen 7.5-325 MG HYDROcodone-Acetaminophen 7.5-325 MG 10/03/2020 12:00:00 AM EDT 1.0 {tablet_as_needed} active HYDROcodone- Acetaminophen 7.5-325 MG eCW1 ([facility]) Acetaminophen 325 MG / Hydrocodone Brielle trate 7.5 MG Oral Tablet HYDROcodone- Acetaminophen 7.5-325 MG HYDROcodone-Acetaminophen 7.5-325 MG 10/03/2020 12:00:00 AM EDT 1.0 {tablet_as_needed} active HYDROcodone- Acetaminophen 7.5-325 MG eCW1 ([facility]) Acetaminophen 325 MG / Hydrocodone Brielle trate 7.5 MG Oral Tablet HYDROcodone- Acetaminophen 7.5-325 MG HYDROcodone-Acetaminophen 7.5-325 MG 10/03/2020 12:00:00 AM EDT 1.0 {tablet_as_needed} active HYDROcodone- Acetaminophen 7.5-325 MG eCW1 ([facility]) Acetaminophen 325 MG / Hydrocodone Brielle trate 7.5 MG Oral Tablet HYDROcodone- Acetaminophen 7.5-325 MG HYDROcodone-Acetaminophen 7.5-325 MG 10/03/2020 12:00:00 AM EDT 1.0 {tablet_as_needed} active HYDROcodone- Acetaminophen 7.5-325 MG eCW1 ([facility]) Acetaminophen 325 MG / Hydrocodone Brielle trate 7.5 MG Oral Tablet HYDROcodone- Acetaminophen 7.5-325 MG HYDROcodone-Acetaminophen 7.5-325 MG 10/03/2020 12:00:00 AM EDT 1.0 {tablet_as_needed} active HYDROcodone- Acetaminophen 7.5-325 MG eCW1 ([facility]) Acetaminophen 325 MG / Hydrocodone Brielle trate 7.5 MG Oral Tablet HYDROcodone- Acetaminophen 7.5-325 MG HYDROcodone-Acetaminophen 7.5-325 MG 10/03/2020 12:00:00 AM EDT 1.0 {tablet_as_needed} active HYDROcodone- Acetaminophen 7.5-325 MG eCW1 ([facility]) Acetaminophen 325 MG / Hydrocodone Brielle trate 7.5 MG Oral Tablet HYDROcodone- Acetaminophen 7.5-325 MG HYDROcodone-Acetaminophen 7.5-325 MG 10/03/2020 12:00:00 AM EDT 1.0 {tablet_as_needed} active HYDROcodone- Acetaminophen 7.5-325 MG eCW1 ([facility]) Acetaminophen 325 MG / Hydrocodone Brielle trate 7.5 MG Oral Tablet HYDROcodone- Acetaminophen 7.5-325 MG HYDROcodone-Acetaminophen 7.5-325 MG 10/03/2020 12:00:00 AM EDT 1.0 {tablet_as_needed} active HYDROcodone- Acetaminophen 7.5-325 MG eCW1 ([facility]) Acetaminophen 325 MG / Hydrocodone Brielle trate 7.5 MG Oral Tablet HYDROcodone- Acetaminophen 7.5-325 MG HYDROcodone-Acetaminophen 7.5-325 MG 10/03/2020 12:00:00 AM EDT 1.0 {tablet_as_needed} active HYDROcodone- Acetaminophen 7.5-325 MG eCW1 ([facility]) Acetaminophen 325 MG / Hydrocodone Brielle trate 7.5 MG Oral Tablet HYDROcodone- Acetaminophen 7.5-325 MG HYDROcodone-Acetaminophen 7.5-325 MG 10/03/2020 12:00:00 AM EDT 1.0 {tablet_as_needed} active HYDROcodone- Acetaminophen 7.5-325 MG eCW1 ([facility]) Acetaminophen 325 MG / Hydrocodone Brielle trate 7.5 MG Oral Tablet HYDROcodone- Acetaminophen 7.5-325 MG HYDROcodone-Acetaminophen 7.5-325 MG 10/03/2020 12:00:00 AM EDT 1.0 {tablet_as_needed} active HYDROcodone- Acetaminophen 7.5-325 MG eCW1 ([facility]) Amlodipine 2.5 MG Oral Tablet amLODIPine Besylate 2.5 MG amLODIPine Besylate 2.5 MG 09/30/2020 12:00:00 AM EDT 1.0 {tablet} activ e amLODIPine Besylate 2.5 MG eCW1 ([facility]) Amlodipine 2.5 MG Oral Tablet amLODIPine Besylate 2.5 MG amLODIPine Besylate 2.5 MG 09/30/2020 12:00:00 AM EDT 1.0 {tablet} activ e amLODIPine Besylate 2.5 MG eCW1 ([facility]) Amlodipine 2.5 MG Oral Tablet amLODIPine Besylate 2.5 MG amLODIPine Besylate 2.5 MG 09/30/2020 12:00:00 AM EDT 1.0 {tablet} activ e amLODIPine Besylate 2.5 MG eCW1 ([facility]) Amlodipine 2.5 MG Oral Tablet amLODIPine Besylate 2.5 MG amLODIPine Besylate 2.5 MG 09/30/2020 12:00:00 AM EDT 2.0 {tablets} acti ve amLODIPine Besylate 2.5 MG eCW1 ([facility]) Amlodipine 2.5 MG Oral Tablet amLODIPine Besylate 2.5 MG amLODIPine Besylate 2.5 MG 09/30/2020 12:00:00 AM EDT 2.0 {tablets} acti ve amLODIPine Besylate 2.5 MG eCW1 ([facility]) Amlodipine 2.5 MG Oral Tablet amLODIPine (NORVASC) 2.5 MG tablet amLODIPine (NORVASC) 2.5 MG tablet 09/30/2020 12:00:00 AM EDT active [facility] Amlodipine 2.5 MG Oral Tablet amLODIPine Besylate 2.5 MG amLODIPine Besylate 2.5 MG 09/30/2020 12:00:00 AM EDT 1.0 {tablet} activ e amLODIPine Besylate 2.5 MG eCW1 ([facility]) Amlodipine 2.5 MG Oral Tablet amLODIPine Besylate 2.5 MG amLODIPine Besylate 2.5 MG 09/30/2020 12:00:00 AM EDT 1.0 {tablet} activ e amLODIPine Besylate 2.5 MG eCW1 ([facility]) Amlodipine 2.5 MG Oral Tablet amLODIPine Besylate 2.5 MG amLODIPine Besylate 2.5 MG 09/30/2020 12:00:00 AM EDT 1.0 {tablet} activ e amLODIPine Besylate 2.5 MG eCW1 ([facility]) Amlodipine 2.5 MG Oral Tablet amLODIPine Besylate 2.5 MG amLODIPine Besylate 2.5 MG 09/30/2020 12:00:00 AM EDT 1.0 {tablet} activ e amLODIPine Besylate 2.5 MG eCW1 ([facility]) Amlodipine 2.5 MG Oral Tablet amLODIPine Besylate 2.5 MG amLODIPine Besylate 2.5 MG 09/30/2020 12:00:00 AM EDT 2.0 {tablets} acti ve amLODIPine Besylate 2.5 MG eCW1 ([facility]) Amlodipine 2.5 MG Oral Tablet amLODIPine Besylate 2.5 MG amLODIPine Besylate 2.5 MG 09/30/2020 12:00:00 AM EDT 2.0 {tablets} acti ve amLODIPine Besylate 2.5 MG eCW1 ([facility]) Amlodipine 2.5 MG Oral Tablet amLODIPine Besylate 2.5 MG amLODIPine Besylate 2.5 MG 09/30/2020 12:00:00 AM EDT 1.0 {tablet} activ e amLODIPine Besylate 2.5 MG eCW1 ([facility]) 3 ML Sodium Hyaluronate 10 MG/ML Prefilled Syringe [Gel-One] Gel-One 09/21/2020 12:00:00 AM EDT active M EDENT ([facility]) Acetaminophen 325 MG / Hydrocodone Brielle trate 7.5 MG Oral Tablet HYDROcodone- Acetaminophen 7.5-325 MG HYDROcodone-Acetaminophen 7.5-325 MG 09/12/2020 12:00:00 AM EDT 1.0 {tablet_as_needed} active HYDROcodone- Acetaminophen 7.5-325 MG eCW1 ([facility]) Acetaminophen 325 MG / Hydrocodone Brielle trate 7.5 MG Oral Tablet HYDROcodone- Acetaminophen 7.5-325 MG HYDROcodone-Acetaminophen 7.5-325 MG 09/12/2020 12:00:00 AM EDT 1.0 {tablet_as_needed} active HYDROcodone- Acetaminophen 7.5-325 MG eCW1 ([facility]) Acetaminophen 325 MG / Hydrocodone Brielle trate 7.5 MG Oral Tablet HYDROcodone- Acetaminophen 7.5-325 MG HYDROcodone-Acetaminophen 7.5-325 MG 09/12/2020 12:00:00 AM EDT 1.0 {tablet_as_needed} active HYDROcodone- Acetaminophen 7.5-325 MG eCW1 ([facility]) Acetaminophen 325 MG / Hydrocodone Brielle trate 7.5 MG Oral Tablet HYDROcodone- Acetaminophen 7.5-325 MG HYDROcodone-Acetaminophen 7.5-325 MG 09/12/2020 12:00:00 AM EDT 1.0 {tablet_as_needed} active HYDROcodone- Acetaminophen 7.5-325 MG W1 ([facility]) Hospital bed _ UNK 08/22/2020 12:00:00 AM EDT active Hospital bed _ eCW1 ([facility]) Hospital bed _ UNK 08/22/2020 12:00:00 AM EDT active Hospital bed _ eCW1 ([facility]) Hospital bed _ UNK 08/22/2020 12:00:00 AM EDT active Hospital bed _ eCW1 ([facility]) Hospital bed _ UNK 08/22/2020 12:00:00 AM EDT active Hospital bed _ eCW1 ([facility]) Hospital bed _ UNK 08/22/2020 12:00:00 AM EDT active Hospital bed _ eCW1 ([facility]) Hospital bed _ K 08/22/2020 12:00:00 AM EDT active Hospital bed _ eCW1 ([facility]) Hospital bed _ K 08/22/2020 12:00:00 AM EDT active Hospital bed _ eCW1 ([facility]) Hospital bed _ K 08/22/2020 12:00:00 AM EDT active Hospital bed _ eCW1 ([facility]) Hospital bed _ K 08/22/2020 12:00:00 AM EDT active Hospital bed _ eCW1 ([facility]) Hospital bed _ [facility] 08/22/2020 12:00:00 AM EDT active Hospital bed _ eCW1 ([facility]) Hospital bed _ [facility] 08/22/2020 12:00:00 AM EDT active Hospital bed _ eCW1 ([facility]) Hospital bed _ [facility] 08/22/2020 12:00:00 AM EDT active Hospital bed _ eCW1 ([facility]) Hospital bed _ [facility] 08/22/2020 12:00:00 AM EDT active Hospital bed _ eCW1 ([facility]) Hospital bed _ [facility] 08/22/2020 12:00:00 AM EDT active Hospital bed _ eCW1 ([facility]) Hospital bed _ K 08/22/2020 12:00:00 AM EDT active Hospital bed _ eCW1 ([facility]) Hospital bed _ K 08/22/2020 12:00:00 AM EDT active Hospital bed _ eCW1 ([facility]) Hospital bed _ K 08/22/2020 12:00:00 AM EDT active Hospital bed _ eCW1 ([facility]) Hospital bed _ K 08/22/2020 12:00:00 AM EDT active Hospital bed _ eCW1 ([facility]) Hospital bed _ K 08/22/2020 12:00:00 AM EDT active Hospital bed _ eCW1 ([facility]) Hospital bed _ [facility] 08/22/2020 12:00:00 AM EDT active Hospital bed _ eCW1 ([facility]) Acetaminophen 325 MG / Hydrocodone Brielle trate 7.5 MG Oral Tablet HYDROcodone- Acetaminophen 7.5-325 MG HYDROcodone-Acetaminophen 7.5-325 MG 08/02/2020 12:00:00 AM EDT 1.0 {tablet_as_needed} active HYDROcodone- Acetaminophen 7.5-325 MG eCW1 ([facility]) Acetaminophen 325 MG / Hydrocodone Brielle trate 7.5 MG Oral Tablet HYDROcodone- Acetaminophen 7.5-325 MG HYDROcodone-Acetaminophen 7.5-325 MG 08/02/2020 12:00:00 AM EDT 1.0 {tablet_as_needed} active HYDROcodone- Acetaminophen 7.5-325 MG eCW1 ([facility]) Acetaminophen 325 MG / Hydrocodone Brielle trate 7.5 MG Oral Tablet HYDROcodone- Acetaminophen 7.5-325 MG HYDROcodone-Acetaminophen 7.5-325 MG 08/02/2020 12:00:00 AM EDT 1.0 {tablet_as_needed} active HYDROcodone- Acetaminophen 7.5-325 MG eCW1 ([facility]) Acetaminophen 325 MG / Hydrocodone Brielle trate 7.5 MG Oral Tablet HYDROcodone- Acetaminophen 7.5-325 MG HYDROcodone-Acetaminophen 7.5-325 MG 08/02/2020 12:00:00 AM EDT 1.0 {tablet_as_needed} active HYDROcodone- Acetaminophen 7.5-325 MG eCW1 ([facility]) Acetaminophen 325 MG / Hydrocodone Brielle trate 7.5 MG Oral Tablet HYDROcodone- Acetaminophen 7.5-325 MG HYDROcodone-Acetaminophen 7.5-325 MG 08/02/2020 12:00:00 AM EDT 1.0 {tablet_as_needed} active HYDROcodone- Acetaminophen 7.5-325 MG eCW1 ([facility]) Acetaminophen 325 MG / Hydrocodone Brielle trate 7.5 MG Oral Tablet HYDROcodone- Acetaminophen 7.5-325 MG HYDROcodone-Acetaminophen 7.5-325 MG 08/02/2020 12:00:00 AM EDT 1.0 {tablet_as_needed} active HYDROcodone- Acetaminophen 7.5-325 MG eCW1 ([facility]) Acetaminophen 325 MG / Hydrocodone Brielle trate 7.5 MG Oral Tablet HYDROcodone- Acetaminophen 7.5-325 MG HYDROcodone-Acetaminophen 7.5-325 MG 08/02/2020 12:00:00 AM EDT 1.0 {tablet_as_needed} active HYDROcodone- Acetaminophen 7.5-325 MG eCW1 ([facility]) Blood Pressure Monitor - Blood Pressure Monitor - 07/29/2020 12:00: 00 AM EDT active Blood Pressure Monitor - eCW1 ([facility]) Blood Pressure Monitor - Blood Pressure Monitor - 07/29/2020 12:00: 00 AM EDT active Blood Pressure Monitor - eCW1 ([facility]) Blood Pressure Monitor - Blood Pressure Monitor - 07/29/2020 12:00: 00 AM EDT active Blood Pressure Monitor - eCW1 ([facility]) Blood Pressure Monitor - Blood Pressure Monitor - 07/29/2020 12:00: 00 AM EDT active Blood Pressure Monitor - eCW1 ([facility]) Blood Pressure Monitor - Blood Pressure Monitor - 07/29/2020 12:00: 00 AM EDT active Blood Pressure Monitor - eCW1 ([facility]) Blood Pressure Monitor - Blood Pressure Monitor - 07/29/2020 12:00: 00 AM EDT active Blood Pressure Monitor - eCW1 ([facility]) Blood Pressure Monitor - Blood Pressure Monitor - 07/29/2020 12:00: 00 AM EDT active Blood Pressure Monitor - eCW1 ([facility]) Blood Pressure Monitor - Blood Pressure Monitor - 07/29/2020 12:00: 00 AM EDT active Blood Pressure Monitor - eCW1 ([facility]) Blood Pressure Monitor - Blood Pressure Monitor - 07/29/2020 12:00: 00 AM EDT active Blood Pressure Monitor - eCW1 ([facility]) Blood Pressure Monitor - Blood Pressure Monitor - 07/29/2020 12:00: 00 AM EDT active Blood Pressure Monitor - eCW1 ([facility]) Blood Pressure Monitor - Blood Pressure Monitor - 07/29/2020 12:00: 00 AM EDT active Blood Pressure Monitor - eCW1 ([facility]) Blood Pressure Monitor - Blood Pressure Monitor - 07/29/2020 12:00: 00 AM EDT active Blood Pressure Monitor - eCW1 ([facility]) Blood Pressure Monitor - Blood Pressure Monitor - 07/29/2020 12:00: 00 AM EDT active Blood Pressure Monitor - eCW1 ([facility]) Blood Pressure Monitor - Blood Pressure Monitor - 07/29/2020 12:00: 00 AM EDT active Blood Pressure Monitor - eCW1 ([facility]) Blood Pressure Monitor - Blood Pressure Monitor - 07/29/2020 12:00: 00 AM EDT active Blood Pressure Monitor - eCW1 ([facility]) Blood Pressure Monitor - Blood Pressure Monitor - 07/29/2020 12:00: 00 AM EDT active Blood Pressure Monitor - eCW1 ([facility]) Blood Pressure Monitor - Blood Pressure Monitor - 07/29/2020 12:00: 00 AM EDT active Blood Pressure Monitor - eCW1 ([facility]) Blood Pressure Monitor - Blood Pressure Monitor - 07/29/2020 12:00: 00 AM EDT active Blood Pressure Monitor - eCW1 ([facility]) Blood Pressure Monitor - Blood Pressure Monitor - 07/29/2020 12:00: 00 AM EDT active Blood Pressure Monitor - eCW1 ([facility]) Blood Pressure Monitor - Blood Pressure Monitor - 07/29/2020 12:00: 00 AM EDT active Blood Pressure Monitor - eCW1 ([facility]) Blood Pressure Monitor - Blood Pressure Monitor - 07/29/2020 12:00: 00 AM EDT active Blood Pressure Monitor - eCW1 ([facility]) Blood Pressure Monitor - Blood Pressure Monitor - 07/29/2020 12:00: 00 AM EDT active Blood Pressure Monitor - eCW1 ([facility]) Blood Pressure Monitor - Blood Pressure Monitor - 07/29/2020 12:00: 00 AM EDT active Blood Pressure Monitor - eCW1 ([facility]) Blood Pressure Kit - Blood Pressure Kit - 07/22/2020 12:00:00 AM EDT active Blood Pressure Kit - eCW1 ([facility]) Blood Pressure Kit - Blood Pressure Kit - 07/22/2020 12:00:00 AM EDT active Blood Pressure Kit - eCW1 ([facility]) Blood Pressure Kit - Blood Pressure Kit - 07/22/2020 12:00:00 AM EDT active Blood Pressure Kit - eCW1 ([facility]) Blood Pressure Kit - Blood Pressure Kit - 07/22/2020 12:00:00 AM EDT active Blood Pressure Kit - eCW1 ([facility]) Blood Pressure Kit - Blood Pressure Kit - 07/22/2020 12:00:00 AM EDT active Blood Pressure Kit - eCW1 ([facility]) Blood Pressure Kit - Blood Pressure Kit - 07/22/2020 12:00:00 AM EDT active Blood Pressure Kit - eCW1 ([facility]) Blood Pressure Kit - Blood Pressure Kit - 07/22/2020 12:00:00 AM EDT active Blood Pressure Kit - eCW1 ([facility]) Blood Pressure Kit - Blood Pressure Kit - 07/22/2020 12:00:00 AM EDT active Blood Pressure Kit - eCW1 ([facility]) Blood Pressure Kit - Blood Pressure Kit - 07/22/2020 12:00:00 AM EDT active Blood Pressure Kit - eCW1 ([facility]) Blood Pressure Kit - Blood Pressure Kit - 07/22/2020 12:00:00 AM EDT active Blood Pressure Kit - eCW1 ([facility]) Blood Pressure Kit - Blood Pressure Kit - 07/22/2020 12:00:00 AM EDT active Blood Pressure Kit - eCW1 ([facility]) Blood Pressure Kit - Blood Pressure Kit - 07/22/2020 12:00:00 AM EDT active Blood Pressure Kit - eCW1 ([facility]) Blood Pressure Kit - Blood Pressure Kit - 07/22/2020 12:00:00 AM EDT active Blood Pressure Kit - eCW1 ([facility]) Blood Pressure Kit - Blood Pressure Kit - 07/22/2020 12:00:00 AM EDT active Blood Pressure Kit - eCW1 ([facility]) Blood Pressure Kit - Blood Pressure Kit - 07/22/2020 12:00:00 AM EDT active Blood Pressure Kit - eCW1 ([facility]) Blood Pressure Kit - Blood Pressure Kit - 07/22/2020 12:00:00 AM EDT active Blood Pressure Kit - eCW1 ([facility]) Blood Pressure Kit - Blood Pressure Kit - 07/22/2020 12:00:00 AM EDT active Blood Pressure Kit - eCW1 ([facility]) Blood Pressure Kit - Blood Pressure Kit - 07/22/2020 12:00:00 AM EDT active Blood Pressure Kit - eCW1 ([facility]) Blood Pressure Kit - Blood Pressure Kit - 07/22/2020 12:00:00 AM EDT active Blood Pressure Kit - eCW1 ([facility]) Blood Pressure Kit - Blood Pressure Kit - 07/22/2020 12:00:00 AM EDT active Blood Pressure Kit - eCW1 ([facility]) Blood Pressure Kit - Blood Pressure Kit - 07/22/2020 12:00:00 AM EDT active Blood Pressure Kit - eCW1 ([facility]) Blood Pressure Kit - Blood Pressure Kit - 07/22/2020 12:00:00 AM EDT active Blood Pressure Kit - eCW1 ([facility]) Blood Pressure Kit - Blood Pressure Kit - 07/22/2020 12:00:00 AM EDT active Blood Pressure Kit - eCW1 ([facility]) Blood Pressure Kit - Blood Pressure Kit - 07/22/2020 12:00:00 AM EDT active Blood Pressure Kit - eCW1 ([facility] [place]) Blood Pressure Kit - Blood Pressure Kit - 07/22/2020 12:00:00 AM EDT active Blood Pressure Kit - eCW1 (Formerly [facility], later [facility] [place]) Spironolactone 25 MG Oral Tablet spironolactone (ALDAC TONE) 25 MG tablet spironolactone (ALDACTONE) 25 MG tablet 07/06/2020 12:00:00 AM EDT 25 mg Oral active Benign essential hypertension Take 1 tablet (25 mg total) by mouth daily [facility] Benign essential hypertension Losartan Potassium 100 MG Oral Tablet losartan (COZAAR ) 100 MG tablet losartan (COZAAR) 100 MG tablet 07/06/2020 12:00:00 AM EDT 100 mg Oral active Benign essential hypertension Take 1 tablet (100 mg total) b y mouth daily [facility] Benign essential hypertension empagliflozin 10 MG Oral Tablet [Jardiance] Jardiance 10 MG Jardiance 10 MG 07/05/2020 12:00:00 AM EDT 1.0 {tablet} active Jardiance 10 MG eCW1 ([facility]) empagliflozin 10 MG Oral Tablet [Jardiance] Jardiance 10 MG Jardiance 10 MG 07/05/2020 12:00:00 AM EDT 1.0 {tablet} active Jardiance 10 MG eCW1 ([facility]) empagliflozin 10 MG Oral Tablet [Jardiance] Jardiance 10 MG Jardiance 10 MG 07/05/2020 12:00:00 AM EDT 1.0 {tablet} active Jardiance 10 MG eCW1 ([facility]) empagliflozin 10 MG Oral Tablet [Jardiance] Jardiance 10 MG Jardiance 10 MG 07/05/2020 12:00:00 AM EDT 1.0 {tablet} active Jardiance 10 MG eCW1 ([facility]) empagliflozin 10 MG Oral Tablet [Jardiance] Jardiance 10 MG Jardiance 10 MG 07/05/2020 12:00:00 AM EDT 1.0 {tablet} active Jardiance 10 MG eCW1 ([facility]) empagliflozin 10 MG Oral Tablet [Jardiance] Jardiance 10 MG Jardiance 10 MG 07/05/2020 12:00:00 AM EDT 1.0 {tablet} active Jardiance 10 MG eCW1 ([facility]) empagliflozin 10 MG Oral Tablet [Jardiance] Jardiance 10 MG Jardiance 10 MG 07/05/2020 12:00:00 AM EDT 1.0 {tablet} active Jardiance 10 MG eCW1 ([facility]) empagliflozin 10 MG Oral Tablet [Jardiance] Jardiance 10 MG Jardiance 10 MG 07/05/2020 12:00:00 AM EDT 1.0 {tablet} active Jardiance 10 MG eCW1 ([facility]) empagliflozin 10 MG Oral Tablet [Jardiance] Jardiance 10 MG Jardiance 10 MG 07/05/2020 12:00:00 AM EDT 1.0 {tablet} active Jardiance 10 MG eCW1 ([facility]) empagliflozin 25 MG Oral Tablet [Jardiance] Jardiance 25 MG Jardiance 25 MG 07/05/2020 12:00:00 AM EDT 1.0 {tablet} active Jardiance 25 MG eCW1 ([facility]) empagliflozin 10 MG Oral Tablet [Jardiance] Jardiance 10 MG Jardiance 10 MG 07/05/2020 12:00:00 AM EDT 1.0 {tablet} active Jardiance 10 MG eCW1 ([facility]) empagliflozin 10 MG Oral Tablet [Jardiance] Jardiance 10 MG Jardiance 10 MG 07/05/2020 12:00:00 AM EDT 1.0 {tablet} active Jardiance 10 MG eCW1 ([facility]) empagliflozin 25 MG Oral Tablet [Jardiance] Jardiance 25 MG Jardiance 25 MG 07/05/2020 12:00:00 AM EDT 1.0 {tablet} active Jardiance 25 MG eCW1 ([facility]) empagliflozin 10 MG Oral Tablet [Jardiance] Jardiance 10 MG Jardiance 10 MG 07/05/2020 12:00:00 AM EDT 1.0 {tablet} active Jardiance 10 MG eCW1 ([facility]) empagliflozin 10 MG Oral Tablet [Jardiance] Jardiance 10 MG Jardiance 10 MG 07/05/2020 12:00:00 AM EDT 1.0 {tablet} active Jardiance 10 MG eCW1 ([facility]) empagliflozin 10 MG Oral Tablet [Jardiance] Jardiance 10 MG Jardiance 10 MG 07/05/2020 12:00:00 AM EDT 1.0 {tablet} active Jardiance 10 MG eCW1 ([facility]) empagliflozin 10 MG Oral Tablet [Jardiance] Jardiance 10 MG Jardiance 10 MG 07/05/2020 12:00:00 AM EDT 1.0 {tablet} active Jardiance 10 MG eCW1 ([facility]) empagliflozin 10 MG Oral Tablet [Jardiance] Jardiance 10 MG Jardiance 10 MG 07/05/2020 12:00:00 AM EDT 1.0 {tablet} active Jardiance 10 MG eCW1 ([facility]) empagliflozin 10 MG Oral Tablet [Jardiance] Jardiance 10 MG Jardiance 10 MG 07/05/2020 12:00:00 AM EDT 1.0 {tablet} active Jardiance 10 MG eCW1 ([facility]) empagliflozin 10 MG Oral Tablet [Jardiance] Jardiance 10 MG Jardiance 10 MG 07/05/2020 12:00:00 AM EDT 1.0 {tablet} active Jardiance 10 MG eCW1 ([facility]) empagliflozin 10 MG Oral Tablet [Jardiance] Jardiance 10 MG Jardiance 10 MG 07/05/2020 12:00:00 AM EDT 1.0 {tablet} active Jardiance 10 MG eCW1 ([facility]) empagliflozin 10 MG Oral Tablet [Jardiance] Jardiance 10 MG Jardiance 10 MG 07/05/2020 12:00:00 AM EDT 1.0 {tablet} active Jardiance 10 MG eCW1 ([facility]) empagliflozin 10 MG Oral Tablet [Jardiance] Jardiance 10 MG Jardiance 10 MG 07/05/2020 12:00:00 AM EDT 1.0 {tablet} active Jardiance 10 MG eCW1 ([facility]) empagliflozin 10 MG Oral Tablet [Jardiance] Jardiance 10 MG Jardiance 10 MG 07/05/2020 12:00:00 AM EDT 1.0 {tablet} active Jardiance 10 MG eCW1 ([facility]) empagliflozin 10 MG Oral Tablet [Jardiance] Jardiance 10 MG Jardiance 10 MG 07/05/2020 12:00:00 AM EDT 1.0 {tablet} active Jardiance 10 MG eCW1 ([facility]) empagliflozin 10 MG Oral Tablet [Jardiance] Jardiance 10 MG Jardiance 10 MG 07/05/2020 12:00:00 AM EDT 1.0 {tablet} active Jardiance 10 MG eCW1 ([facility]) empagliflozin 10 MG Oral Tablet [Jardiance] Jardiance 10 MG Jardiance 10 MG 07/05/2020 12:00:00 AM EDT 1.0 {tablet} active Jardiance 10 MG eCW1 ([facility]) empagliflozin 10 MG Oral Tablet [Jardiance] Jardiance 10 MG Jardiance 10 MG 07/05/2020 12:00:00 AM EDT 1.0 {tablet} active Jardiance 10 MG eCW1 ([facility]) empagliflozin 10 MG Oral Tablet [Jardiance] Jardiance 10 MG Jardiance 10 MG 07/05/2020 12:00:00 AM EDT 1.0 {tablet} active Jardiance 10 MG eCW1 ([facility]) empagliflozin 10 MG Oral Tablet [Jardiance] Jardiance 10 MG Jardiance 10 MG 07/05/2020 12:00:00 AM EDT 1.0 {tablet} active Jardiance 10 MG eCW1 ([facility]) torsemide 10 MG Oral Tablet torsemide (DEMADEX) 10 MG tablet torsemide (DEMADEX) 10 MG tablet 06/08/2020 12:00:00 AM EDT 10 mg Oral acti ve Take 1 tablet (10 mg total) by mouth daily [facility] Losartan Potassium 50 MG Oral Tablet losartan (COZAAR) 50 MG tablet losartan (COZAAR) 50 MG tablet 06/08/2020 12:00:00 AM EDT 75 mg Oral aborted Benign essential hypertensionCongestive heart failure, unspecified HF chronicity, unspecified heart failure type Take 1.5 tablets (75 mg total ) by mouth daily [facility] Benign essential hypertension Congestive heart failure, unspecified HF chronicity, unspecified heart failure type Acetaminophen 325 MG / Hydrocodone Brielle trate 5 MG Oral Tablet Hydrocodone- Acetaminophen 5-325 MG Hydrocodone-Acetaminophen 5-325 MG 06/07/2020 12:00:00 AM EDT 1.0 {tablet_as_needed} active Hydrocodone-Acetaminophen 5-325 MG eCW1 ([facility]) Acetaminophen 325 MG / Hydrocodone Brielle trate 5 MG Oral Tablet Hydrocodone- Acetaminophen 5-325 MG Hydrocodone-Acetaminophen 5-325 MG 06/07/2020 12:00:00 AM EDT 1.0 {tablet_as_needed} active Hydrocodone-Acetaminophen 5-325 MG eCW1 ([facility]) Acetaminophen 325 MG / Hydrocodone Brielle trate 5 MG Oral Tablet Hydrocodone- Acetaminophen 5-325 MG Hydrocodone-Acetaminophen 5-325 MG 06/07/2020 12:00:00 AM EDT 1.0 {tablet_as_needed} active Hydrocodone-Acetaminophen 5-325 MG eCW1 ([facility]) Acetaminophen 325 MG / Hydrocodone Brielle trate 5 MG Oral Tablet Hydrocodone- Acetaminophen 5-325 MG Hydrocodone-Acetaminophen 5-325 MG 06/07/2020 12:00:00 AM EDT 1.0 {tablet_as_needed} active Hydrocodone-Acetaminophen 5-325 MG eCW1 ([facility]) 24 HR Metformin hydrochloride 500 MG Ext ended Release Oral Tablet metFORMIN (GLUCOPHATE-XR) 500 MG 24 hr tablet metFORMIN (GLUCOPHATE-XR) 500 MG 24 hr tablet 06/07/2020 12:00:00 AM EDT aborted [facility] empagliflozin 10 MG Oral Tablet [Jardiance] JARDIANCE 10 MG TABS JARDIANCE 10 MG TABS 06/07/2020 12:00:00 AM EDT aborted [facility] Acetaminophen 325 MG / Hydrocodone Brielle trate 5 MG Oral Tablet Hydrocodone- Acetaminophen 5-325 MG Hydrocodone-Acetaminophen 5-325 MG 06/07/2020 12:00:00 AM EDT 1.0 {tablet_as_needed} active Hydrocodone-Acetaminophen 5-325 MG eCW1 ([facility]) Acetaminophen 325 MG / Hydrocodone Brielle trate 5 MG Oral Tablet Hydrocodone- Acetaminophen 5-325 MG Hydrocodone-Acetaminophen 5-325 MG 06/07/2020 12:00:00 AM EDT 1.0 {tablet_as_needed} active Hydrocodone-Acetaminophen 5-325 MG eCW1 ([facility]) Acetaminophen 325 MG / Hydrocodone Brielle trate 5 MG Oral Tablet Hydrocodone- Acetaminophen 5-325 MG Hydrocodone-Acetaminophen 5-325 MG 06/07/2020 12:00:00 AM EDT 1.0 {tablet_as_needed} active Hydrocodone-Acetaminophen 5-325 MG eCW1 ([facility]) Acetaminophen 325 MG / Hydrocodone Brielle trate 5 MG Oral Tablet Hydrocodone- Acetaminophen 5-325 MG Hydrocodone-Acetaminophen 5-325 MG 06/07/2020 12:00:00 AM EDT 1.0 {tablet_as_needed} active Hydrocodone-Acetaminophen 5-325 MG eCW1 ([facility]) Acetaminophen 325 MG / Hydrocodone Brielle trate 5 MG Oral Tablet Hydrocodone- Acetaminophen 5-325 MG Hydrocodone-Acetaminophen 5-325 MG 06/07/2020 12:00:00 AM EDT 1.0 {tablet_as_needed} active Hydrocodone-Acetaminophen 5-325 MG eCW1 ([facility]) Acetaminophen 325 MG / Hydrocodone Brielle trate 5 MG Oral Tablet Hydrocodone- Acetaminophen 5-325 MG Hydrocodone-Acetaminophen 5-325 MG 06/07/2020 12:00:00 AM EDT 1.0 {tablet_as_needed} active Hydrocodone-Acetaminophen 5-325 MG eCW1 ([facility]) Acetaminophen 325 MG / Hydrocodone Brielle trate 5 MG Oral Tablet Hydrocodone- Acetaminophen 5-325 MG Hydrocodone-Acetaminophen 5-325 MG 06/07/2020 12:00:00 AM EDT 1.0 {tablet_as_needed} active Hydrocodone-Acetaminophen 5-325 MG eCW1 ([facility]) Acetaminophen 325 MG / Hydrocodone Brielle trate 5 MG Oral Tablet Hydrocodone- Acetaminophen 5-325 MG Hydrocodone-Acetaminophen 5-325 MG 06/07/2020 12:00:00 AM EDT 1.0 {tablet_as_needed} active Hydrocodone-Acetaminophen 5-325 MG eCW1 ([facility]) Acetaminophen 325 MG / Hydrocodone Brielle trate 5 MG Oral Tablet Hydrocodone- Acetaminophen 5-325 MG Hydrocodone-Acetaminophen 5-325 MG 06/07/2020 12:00:00 AM EDT 1.0 {tablet_as_needed} active Hydrocodone-Acetaminophen 5-325 MG eCW1 ([facility]) Acetaminophen 325 MG / Hydrocodone Brielle trate 5 MG Oral Tablet Hydrocodone- Acetaminophen 5-325 MG Hydrocodone-Acetaminophen 5-325 MG 06/07/2020 12:00:00 AM EDT 1.0 {tablet_as_needed} active Hydrocodone-Acetaminophen 5-325 MG eCW1 ([facility]) Acetaminophen 325 MG / Hydrocodone Brielle trate 5 MG Oral Tablet Hydrocodone- Acetaminophen 5-325 MG Hydrocodone-Acetaminophen 5-325 MG 06/07/2020 12:00:00 AM EDT 1.0 {tablet_as_needed} active Hydrocodone-Acetaminophen 5-325 MG eCW1 ([facility]) Levothyroxine Sodium 0.025 MG Oral Tablet Levothyroxin e Sodium 25 MCG Levothyroxine Sodium 25 MCG 06/03/2020 12:00:00 AM EDT active Levothyroxine Sodium 25 MCG eCW1 ([facility]) Levothyroxine Sodium 0.025 MG Oral Tablet Levothyroxin e Sodium 25 MCG Levothyroxine Sodium 25 MCG 06/03/2020 12:00:00 AM EDT active Levothyroxine Sodium 25 MCG eCW1 ([facility]) Levothyroxine Sodium 0.025 MG Oral Tablet Levothyroxin e Sodium 25 MCG Levothyroxine Sodium 25 MCG 06/03/2020 12:00:00 AM EDT active Levothyroxine Sodium 25 MCG eCW1 ([facility]) Levothyroxine Sodium 0.025 MG Oral Tablet Levothyroxin e Sodium 25 MCG Levothyroxine Sodium 25 MCG 06/03/2020 12:00:00 AM EDT active Levothyroxine Sodium 25 MCG eCW1 ([facility]) Levothyroxine Sodium 0.025 MG Oral Tablet Levothyroxin e Sodium 25 MCG Levothyroxine Sodium 25 MCG 06/03/2020 12:00:00 AM EDT active Levothyroxine Sodium 25 MCG eCW1 ([facility]) Levothyroxine Sodium 0.025 MG Oral Tablet Levothyroxin e Sodium 25 MCG Levothyroxine Sodium 25 MCG 06/03/2020 12:00:00 AM EDT active Levothyroxine Sodium 25 MCG eCW1 ([facility]) Levothyroxine Sodium 0.025 MG Oral Tablet Levothyroxin e Sodium 25 MCG Levothyroxine Sodium 25 MCG 06/03/2020 12:00:00 AM EDT active Levothyroxine Sodium 25 MCG eCW1 ([facility]) Levothyroxine Sodium 0.025 MG Oral Tablet Levothyroxin e Sodium 25 MCG Levothyroxine Sodium 25 MCG 06/03/2020 12:00:00 AM EDT active Levothyroxine Sodium 25 MCG eCW1 ([facility]) Levothyroxine Sodium 0.025 MG Oral Tablet Levothyroxin e Sodium 25 MCG Levothyroxine Sodium 25 MCG 06/03/2020 12:00:00 AM EDT active Levothyroxine Sodium 25 MCG eCW1 ([facility]) Levothyroxine Sodium 0.025 MG Oral Tablet Levothyroxin e Sodium 25 MCG Levothyroxine Sodium 25 MCG 06/03/2020 12:00:00 AM EDT active Levothyroxine Sodium 25 MCG eCW1 ([facility]) Levothyroxine Sodium 0.025 MG Oral Tablet Levothyroxin e Sodium 25 MCG Levothyroxine Sodium 25 MCG 06/03/2020 12:00:00 AM EDT active Levothyroxine Sodium 25 MCG eCW1 ([facility]) Levothyroxine Sodium 0.025 MG Oral Tablet Levothyroxin e Sodium 25 MCG Levothyroxine Sodium 25 MCG 06/03/2020 12:00:00 AM EDT active Levothyroxine Sodium 25 MCG eCW1 ([facility]) Levothyroxine Sodium 0.025 MG Oral Tablet Levothyroxin e Sodium 25 MCG Levothyroxine Sodium 25 MCG 06/03/2020 12:00:00 AM EDT active Levothyroxine Sodium 25 MCG eCW1 ([facility]) Levothyroxine Sodium 0.025 MG Oral Tablet Levothyroxin e Sodium 25 MCG Levothyroxine Sodium 25 MCG 06/03/2020 12:00:00 AM EDT active Levothyroxine Sodium 25 MCG eCW1 ([facility]) Levothyroxine Sodium 0.025 MG Oral Tablet Levothyroxin e Sodium 25 MCG Levothyroxine Sodium 25 MCG 06/03/2020 12:00:00 AM EDT active Levothyroxine Sodium 25 MCG eCW1 ([facility]) Levothyroxine Sodium 0.025 MG Oral Tablet Levothyroxin e Sodium 25 MCG Levothyroxine Sodium 25 MCG 06/03/2020 12:00:00 AM EDT active Levothyroxine Sodium 25 MCG eCW1 ([facility]) Levothyroxine Sodium 0.025 MG Oral Tablet Levothyroxin e Sodium 25 MCG Levothyroxine Sodium 25 MCG 06/03/2020 12:00:00 AM EDT active Levothyroxine Sodium 25 MCG eCW1 ([facility]) Levothyroxine Sodium 0.025 MG Oral Tablet Levothyroxin e Sodium 25 MCG Levothyroxine Sodium 25 MCG 06/03/2020 12:00:00 AM EDT active Levothyroxine Sodium 25 MCG eCW1 ([facility]) Levothyroxine Sodium 0.025 MG Oral Tablet Levothyroxin e Sodium 25 MCG Levothyroxine Sodium 25 MCG 06/03/2020 12:00:00 AM EDT active Levothyroxine Sodium 25 MCG eCW1 ([facility]) Levothyroxine Sodium 0.025 MG Oral Tablet Levothyroxin e Sodium 25 MCG Levothyroxine Sodium 25 MCG 06/03/2020 12:00:00 AM EDT active Levothyroxine Sodium 25 MCG eCW1 ([facility]) Levothyroxine Sodium 0.025 MG Oral Tablet Levothyroxin e Sodium 25 MCG Levothyroxine Sodium 25 MCG 06/03/2020 12:00:00 AM EDT active Levothyroxine Sodium 25 MCG eCW1 ([facility]) Levothyroxine Sodium 0.025 MG Oral Tablet Levothyroxin e Sodium 25 MCG Levothyroxine Sodium 25 MCG 06/03/2020 12:00:00 AM EDT active Levothyroxine Sodium 25 MCG eCW1 ([facility]) Levothyroxine Sodium 0.025 MG Oral Tablet Levothyroxin e Sodium 25 MCG Levothyroxine Sodium 25 MCG 06/03/2020 12:00:00 AM EDT active Levothyroxine Sodium 25 MCG eCW1 ([facility]) Levothyroxine Sodium 0.025 MG Oral Tablet Levothyroxin e Sodium 25 MCG Levothyroxine Sodium 25 MCG 06/03/2020 12:00:00 AM EDT active Levothyroxine Sodium 25 MCG eCW1 ([facility]) Levothyroxine Sodium 0.025 MG Oral Tablet Levothyroxin e Sodium 25 MCG Levothyroxine Sodium 25 MCG 06/03/2020 12:00:00 AM EDT active Levothyroxine Sodium 25 MCG eCW1 ([facility]) Levothyroxine Sodium 0.025 MG Oral Tablet Levothyroxin e Sodium 25 MCG Levothyroxine Sodium 25 MCG 06/03/2020 12:00:00 AM EDT active Levothyroxine Sodium 25 MCG eCW1 ([facility]) Levothyroxine Sodium 0.025 MG Oral Tablet Levothyroxin e Sodium 25 MCG Levothyroxine Sodium 25 MCG 06/03/2020 12:00:00 AM EDT active Levothyroxine Sodium 25 MCG eCW1 ([facility]) Losartan Potassium 50 MG Oral Tablet Losartan Potassium 50 M G 05/17/2020 12:00:00 AM EDT 1.5 {tablets} active L osartan Potassium 50 MG eCW1 ([facility]) Losartan Potassium 50 MG Oral Tablet Losartan Potassium 50 M G 05/17/2020 12:00:00 AM EDT active Losartan Potassium 50 MG eCW1 ([facility]) Losartan Potassium 50 MG Oral Tablet Losartan Potassium 50 M G 05/17/2020 12:00:00 AM EDT 1.5 {tablets} active L osartan Potassium 50 MG eCW1 ([facility]) Losartan Potassium 100 MG Oral Tablet Losartan Potassium 100 MG 05/17/2020 12:00:00 AM EDT 1.0 {tablet} active Lo sartan Potassium 100 MG eCW1 ([facility]) Losartan Potassium 50 MG Oral Tablet Losartan Potassium 50 M G 05/17/2020 12:00:00 AM EDT active Losartan Potassium 50 MG eCW1 ([facility]) Losartan Potassium 50 MG Oral Tablet Losartan Potassium 50 M G 05/17/2020 12:00:00 AM EDT 1.5 {tablets} active L osartan Potassium 50 MG eCW1 ([facility]) Losartan Potassium 100 MG Oral Tablet Losartan Potassium 100 MG 05/17/2020 12:00:00 AM EDT 1.0 {tablet} active Lo sartan Potassium 100 MG eCW1 ([facility]) Losartan Potassium 50 MG Oral Tablet Losartan Potassium 50 M G 05/17/2020 12:00:00 AM EDT active Losartan Potassium 50 MG eCW1 ([facility]) Losartan Potassium 50 MG Oral Tablet losartan (COZAAR) 50 MG tablet losartan (COZAAR) 50 MG tablet 05/17/2020 12:00:00 AM EDT a [facility] Losartan Potassium 100 MG Oral Tablet Losartan Potassium 100 MG 05/17/2020 12:00:00 AM EDT 1.0 {tablet} active Lo sartan Potassium 100 MG eCW1 ([facility]) Losartan Potassium 50 MG Oral Tablet Losartan Potassium 50 M G 05/17/2020 12:00:00 AM EDT active Losartan Potassium 50 MG eCW1 ([facility]) Losartan Potassium 100 MG Oral Tablet Losartan Potassium 100 MG 05/17/2020 12:00:00 AM EDT 1.0 {tablet} active Lo sartan Potassium 100 MG eCW1 ([facility]) Losartan Potassium 50 MG Oral Tablet Losartan Potassium 50 M G 05/17/2020 12:00:00 AM EDT active Losartan Potassium 50 MG eCW1 ([facility]) Losartan Potassium 50 MG Oral Tablet Losartan Potassium 50 M G 05/17/2020 12:00:00 AM EDT active Losartan Potassium 50 MG eCW1 ([facility]) Losartan Potassium 50 MG Oral Tablet Losartan Potassium 50 M G 05/17/2020 12:00:00 AM EDT 1.5 {tablets} active L osartan Potassium 50 MG eCW1 ([facility]) Losartan Potassium 50 MG Oral Tablet Losartan Potassium 50 M G 05/17/2020 12:00:00 AM EDT 1.5 {tablets} active L osartan Potassium 50 MG eCW1 ([facility]) Losartan Potassium 50 MG Oral Tablet Losartan Potassium 50 M G 05/17/2020 12:00:00 AM EDT active Losartan Potassium 50 MG eCW1 ([facility]) Losartan Potassium 50 MG Oral Tablet Losartan Potassium 50 M G 05/17/2020 12:00:00 AM EDT active Losartan Potassium 50 MG eCW1 ([facility]) Losartan Potassium 50 MG Oral Tablet Losartan Potassium 50 M G 05/17/2020 12:00:00 AM EDT active Losartan Potassium 50 MG eCW1 ([facility]) Losartan Potassium 100 MG Oral Tablet Losartan Potassium 100 MG 05/17/2020 12:00:00 AM EDT 1.0 {tablet} active Lo sartan Potassium 100 MG eCW1 ([facility]) Losartan Potassium 50 MG Oral Tablet Losartan Potassium 50 M G 05/17/2020 12:00:00 AM EDT active Losartan Potassium 50 MG eCW1 ([facility]) Losartan Potassium 50 MG Oral Tablet Losartan Potassium 50 M G 05/17/2020 12:00:00 AM EDT active Losartan Potassium 50 MG eCW1 ([facility]) Losartan Potassium 100 MG Oral Tablet Losartan Potassium 100 MG 05/17/2020 12:00:00 AM EDT 1.0 {tablet} active Lo sartan Potassium 100 MG eCW1 ([facility]) Losartan Potassium 50 MG Oral Tablet Losartan Potassium 50 M G 05/17/2020 12:00:00 AM EDT active Losartan Potassium 50 MG eCW1 ([facility]) Losartan Potassium 50 MG Oral Tablet Losartan Potassium 50 M G 05/17/2020 12:00:00 AM EDT active Losartan Potassium 50 MG eCW1 ([facility]) Losartan Potassium 50 MG Oral Tablet Losartan Potassium 50 M G 05/17/2020 12:00:00 AM EDT active Losartan Potassium 50 MG eCW1 ([facility]) Losartan Potassium 50 MG Oral Tablet Losartan Potassium 50 M G 05/17/2020 12:00:00 AM EDT active Losartan Potassium 50 MG eCW1 ([facility]) Losartan Potassium 50 MG Oral Tablet Losartan Potassium 50 M G 05/17/2020 12:00:00 AM EDT active Losartan Potassium 50 MG eCW1 ([facility]) Losartan Potassium 50 MG Oral Tablet Losartan Potassium 50 M G 05/17/2020 12:00:00 AM EDT 1.5 {tablets} active L osartan Potassium 50 MG eCW1 ([facility]) Losartan Potassium 50 MG Oral Tablet Losartan Potassium 50 M G 05/17/2020 12:00:00 AM EDT active Losartan Potassium 50 MG eCW1 ([facility]) Losartan Potassium 50 MG Oral Tablet Losartan Potassium 50 M G 05/17/2020 12:00:00 AM EDT active Losartan Potassium 50 MG eCW1 ([facility]) Losartan Potassium 50 MG Oral Tablet Losartan Potassium 50 M G 05/17/2020 12:00:00 AM EDT active Losartan Potassium 50 MG eCW1 ([facility]) Losartan Potassium 50 MG Oral Tablet Losartan Potassium 50 M G 05/17/2020 12:00:00 AM EDT active Losartan Potassium 50 MG eCW1 ([facility]) Losartan Potassium 100 MG Oral Tablet Losartan Potassium 100 MG 05/17/2020 12:00:00 AM EDT 1.0 {tablet} active Lo sartan Potassium 100 MG eCW1 ([facility]) Losartan Potassium 50 MG Oral Tablet Losartan Potassium 50 M G 05/17/2020 12:00:00 AM EDT active Losartan Potassium 50 MG eCW1 ([facility]) Losartan Potassium 100 MG Oral Tablet Losartan Potassium 100 MG 05/17/2020 12:00:00 AM EDT 1.0 {tablet} active Lo sartan Potassium 100 MG eCW1 ([facility]) Losartan Potassium 100 MG Oral Tablet Losartan Potassium 100 MG 05/17/2020 12:00:00 AM EDT 1.0 {tablet} active Lo sartan Potassium 100 MG eCW1 ([facility]) Losartan Potassium 50 MG Oral Tablet Losartan Potassium 50 M G 05/17/2020 12:00:00 AM EDT active Losartan Potassium 50 MG eCW1 ([facility]) Losartan Potassium 100 MG Oral Tablet Losartan Potassium 100 MG 05/17/2020 12:00:00 AM EDT 1.0 {tablet} active Lo sartan Potassium 100 MG eCW1 ([facility]) Losartan Potassium 100 MG Oral Tablet Losartan Potassium 100 MG 05/17/2020 12:00:00 AM EDT 1.0 {tablet} active Lo sartan Potassium 100 MG eCW1 ([facility]) Losartan Potassium 100 MG Oral Tablet Losartan Potassium 100 MG 05/17/2020 12:00:00 AM EDT 1.0 {tablet} active Lo sartan Potassium 100 MG eCW1 ([facility]) Acetaminophen 325 MG / Hydrocodone Brielle trate 5 MG Oral Tablet Hydrocodone- Acetaminophen 5-325 MG Hydrocodone-Acetaminophen 5-325 MG 05/12/2020 12:00:00 AM EDT 1.0 {tablet_as_needed} active Hydrocodone-Acetaminophen 5-325 MG eCW1 ([facility]) Acetaminophen 325 MG / Hydrocodone Brielle trate 5 MG Oral Tablet Hydrocodone- Acetaminophen 5-325 MG Hydrocodone-Acetaminophen 5-325 MG 05/12/2020 12:00:00 AM EDT 1.0 {tablet_as_needed} active Hydrocodone-Acetaminophen 5-325 MG eCW1 ([facility]) Acetaminophen 325 MG / Hydrocodone Brielle trate 5 MG Oral Tablet Hydrocodone- Acetaminophen 5-325 MG Hydrocodone-Acetaminophen 5-325 MG 05/12/2020 12:00:00 AM EDT 1.0 {tablet_as_needed} active Hydrocodone-Acetaminophen 5-325 MG eCW1 ([facility]) Acetaminophen 325 MG / Hydrocodone Brielle trate 5 MG Oral Tablet Hydrocodone- Acetaminophen 5-325 MG Hydrocodone-Acetaminophen 5-325 MG 05/12/2020 12:00:00 AM EDT 1.0 {tablet_as_needed} active Hydrocodone-Acetaminophen 5-325 MG eCW1 ([facility]) empagliflozin 10 MG Oral Tablet [Jardiance] Jardiance 10 MG Jardiance 10 MG 04/21/2020 12:00:00 AM EST 1.0 {tablet} active Jardiance 10 MG eCW1 ([facility]) empagliflozin 10 MG Oral Tablet [Jardiance] Jardiance 10 MG Jardiance 10 MG 04/21/2020 12:00:00 AM EST 1.0 {tablet} active Jardiance 10 MG eCW1 ([facility] [facility] empagliflozin 10 MG Oral Tablet [Jardiance] Jardiance 10 MG Jardiance 10 MG 04/21/2020 12:00:00 AM EST 1.0 {tablet} active Jardiance 10 MG eCW1 ([facility]) empagliflozin 10 MG Oral Tablet [Jardiance] Jardiance 10 MG Jardiance 10 MG 04/21/2020 12:00:00 AM EST 1.0 {tablet} active Jardiance 10 MG eCW1 ([facility]) empagliflozin 10 MG Oral Tablet [Jardiance] Jardiance 10 MG Jardiance 10 MG 04/21/2020 12:00:00 AM EST 1.0 {tablet} active Jardiance 10 MG eCW1 ([facility]) carvedilol 6.25 MG Oral Tablet carvedilol (COREG) 6.25 MG tablet carvedilol (COREG) 6.25 MG tablet 04/15/2020 12:00:00 AM EST 6.25 mg Oral aborted Take 1 tablet (6.25 mg total) by mouth 2 (two) times a day [facility] Acetaminophen 325 MG / Hydrocodone Brielle trate 5 MG Oral Tablet Hydrocodone- Acetaminophen 5-325 MG Hydrocodone-Acetaminophen 5-325 MG 04/11/2020 12:00:00 AM EST 1.0 {tablet_as_needed} active Hydrocodone-Acetaminophen 5-325 MG eCW1 ([facility]) Acetaminophen 325 MG / Hydrocodone Brielle trate 5 MG Oral Tablet Hydrocodone- Acetaminophen 5-325 MG Hydrocodone-Acetaminophen 5-325 MG 04/11/2020 12:00:00 AM EST 1.0 {tablet_as_needed} active Hydrocodone-Acetaminophen 5-325 MG eCW1 ([facility]) Acetaminophen 325 MG / Hydrocodone Brielle trate 5 MG Oral Tablet Hydrocodone- Acetaminophen 5-325 MG Hydrocodone-Acetaminophen 5-325 MG 04/11/2020 12:00:00 AM EST 1.0 {tablet_as_needed} active Hydrocodone-Acetaminophen 5-325 MG eCW1 ([facility]) Acetaminophen 325 MG / Hydrocodone Brielle trate 5 MG Oral Tablet Hydrocodone- Acetaminophen 5-325 MG Hydrocodone-Acetaminophen 5-325 MG 04/11/2020 12:00:00 AM EST 1.0 {tablet_as_needed} active Hydrocodone-Acetaminophen 5-325 MG eCW1 ([facility]) Acetaminophen 325 MG / Hydrocodone Brielle trate 5 MG Oral Tablet Hydrocodone- Acetaminophen 5-325 MG Hydrocodone-Acetaminophen 5-325 MG 04/11/2020 12:00:00 AM EST 1.0 {tablet_as_needed} active Hydrocodone-Acetaminophen 5-325 MG eCW1 ([facility]) Acetaminophen 325 MG / Hydrocodone Brielle trate 5 MG Oral Tablet Hydrocodone- Acetaminophen 5-325 MG Hydrocodone-Acetaminophen 5-325 MG 04/11/2020 12:00:00 AM EST 1.0 {tablet_as_needed} active Hydrocodone-Acetaminophen 5-325 MG eCW1 ([facility]) Acetaminophen 325 MG / Hydrocodone Brielle trate 5 MG Oral Tablet Hydrocodone- Acetaminophen 5-325 MG Hydrocodone-Acetaminophen 5-325 MG 04/11/2020 12:00:00 AM EST 1.0 {tablet_as_needed} active Hydrocodone-Acetaminophen 5-325 MG eCW1 ([facility]) Amlodipine 2.5 MG Oral Tablet AmLODIPine Besylate 2.5 MG AmLODIPine Besylate 2.5 MG 04/04/2020 12:00:00 AM EST 1.0 {tablet} activ e AmLODIPine Besylate 2.5 MG eCW1 ([facility]) Amlodipine 2.5 MG Oral Tablet AmLODIPine Besylate 2.5 MG AmLODIPine Besylate 2.5 MG 04/04/2020 12:00:00 AM EST 1.0 {tablet} activ e AmLODIPine Besylate 2.5 MG eCW1 ([facility]) Amlodipine 2.5 MG Oral Tablet AmLODIPine Besylate 2.5 MG AmLODIPine Besylate 2.5 MG 04/04/2020 12:00:00 AM EST 1.0 {tablet} activ e AmLODIPine Besylate 2.5 MG eCW1 ([facility]) Amlodipine 2.5 MG Oral Tablet AmLODIPine Besylate 2.5 MG AmLODIPine Besylate 2.5 MG 04/04/2020 12:00:00 AM EST 1.0 {tablet} activ e AmLODIPine Besylate 2.5 MG eCW1 ([facility]) Amlodipine 2.5 MG Oral Tablet AmLODIPine Besylate 2.5 MG AmLODIPine Besylate 2.5 MG 04/04/2020 12:00:00 AM EST 1.0 {tablet} activ e AmLODIPine Besylate 2.5 MG eCW1 ([facility]) Amlodipine 2.5 MG Oral Tablet AmLODIPine Besylate 2.5 MG AmLODIPine Besylate 2.5 MG 04/04/2020 12:00:00 AM EST 1.0 {tablet} activ e AmLODIPine Besylate 2.5 MG eCW1 ([facility]) Amlodipine 2.5 MG Oral Tablet AmLODIPine Besylate 2.5 MG AmLODIPine Besylate 2.5 MG 04/04/2020 12:00:00 AM EST 1.0 {tablet} activ e AmLODIPine Besylate 2.5 MG eCW1 ([facility]) Amlodipine 2.5 MG Oral Tablet AmLODIPine Besylate 2.5 MG AmLODIPine Besylate 2.5 MG 04/04/2020 12:00:00 AM EST 1.0 {tablet} activ e AmLODIPine Besylate 2.5 MG eCW1 ([facility]) Amlodipine 2.5 MG Oral Tablet amLODIPine (NORVASC) 2.5 MG tablet amLODIPine (NORVASC) 2.5 MG tablet 04/04/2020 12:00:00 AM EST 5 mg Oral aborted Take 5 mg by mouth daily [facility] Amlodipine 2.5 MG Oral Tablet AmLODIPine Besylate 2.5 MG AmLODIPine Besylate 2.5 MG 04/04/2020 12:00:00 AM EST 1.0 {tablet} activ e AmLODIPine Besylate 2.5 MG eCW1 ([facility]) Potassium Chloride 10 MEQ Extended Relea se Oral Tablet potassium chloride (K- DUR) 10 MEQ tablet potassium chloride (K-DUR) 10 MEQ tablet 04/02/2020 12 :00:00 AM EST aborted [facility] 24 HR Metformin hydrochloride 500 MG Ext ended Release Oral Tablet metFORMIN (GLUCOPHATE-XR) 500 MG 24 hr tablet metFORMIN (GLUCOPHATE-XR) 500 MG 24 hr tablet 03/19/2020 12:00:00 AM EST aborted [facility] Sucralfate 1000 MG Oral Tablet [Carafate] Carafate 1 GM Brooke fate 1 GM 03/08/2020 12:00:00 AM EST 1.0 {tablet_on_an_empty_stomach} active Carafate 1 GM W1 ([facility]) Sucralfate 1000 MG Oral Tablet [Carafate] Carafate 1 GM Brooke fate 1 GM 03/08/2020 12:00:00 AM EST 1.0 {tablet_on_an_empty_stomach} active Carafate 1 GM [facility]1 ([facility]) Sucralfate 1000 MG Oral Tablet [Carafate] Carafate 1 GM Brooke fate 1 GM 03/08/2020 12:00:00 AM EST 1.0 {tablet_on_an_empty_stomach} active Carafate 1 GM W1 ([facility]) Sucralfate 1000 MG Oral Tablet [Carafate] Carafate 1 GM Brooke fate 1 GM 03/08/2020 12:00:00 AM EST 1.0 {tablet_on_an_empty_stomach} active Carafate 1 GM W1 ([facility]) Sucralfate 1000 MG Oral Tablet [Carafate] Carafate 1 GM Brooke fate 1 GM 03/08/2020 12:00:00 AM EST 1.0 {tablet_on_an_empty_stomach} active Carafate 1 GM W1 ([facility]) Sucralfate 1000 MG Oral Tablet [Carafate] Carafate 1 GM Brooke fate 1 GM 03/08/2020 12:00:00 AM EST 1.0 {tablet_on_an_empty_stomach} active Carafate 1 GM eCW1 ([facility]) Sucralfate 1000 MG Oral Tablet sucralfate (CARAFATE) 1 g tablet sucralfate (CARAFATE) 1 g tablet 03/08/2020 12:00:00 AM EST 1 g Oral active Take 1 g by mouth 3 (three) times a day [facility] Acetaminophen 325 MG / Hydrocodone Brielle trate 5 MG Oral Tablet Hydrocodone- Acetaminophen 5-325 MG Hydrocodone-Acetaminophen 5-325 MG 02/25/2020 12:00:00 AM EST 1.0 {tablet_as_needed} active Hydrocodone-Acetaminophen 5-325 MG eCW1 ([facility]) Acetaminophen 325 MG / Hydrocodone Brielle trate 5 MG Oral Tablet Hydrocodone- Acetaminophen 5-325 MG Hydrocodone-Acetaminophen 5-325 MG 02/25/2020 12:00:00 AM EST 1.0 {tablet_as_needed} active Hydrocodone-Acetaminophen 5-325 MG eCW1 ([facility]) Acetaminophen 325 MG / Hydrocodone Brielle trate 5 MG Oral Tablet Hydrocodone- Acetaminophen 5-325 MG Hydrocodone-Acetaminophen 5-325 MG 02/25/2020 12:00:00 AM EST 1.0 {tablet_as_needed} active Hydrocodone-Acetaminophen 5-325 MG eCW1 ([facility]) Acetaminophen 325 MG / Hydrocodone Brielle trate 5 MG Oral Tablet Hydrocodone- Acetaminophen 5-325 MG Hydrocodone-Acetaminophen 5-325 MG 02/25/2020 12:00:00 AM EST 1.0 {tablet_as_needed} active Hydrocodone-Acetaminophen 5-325 MG eCW1 ([facility]) Acetaminophen 325 MG / Hydrocodone Brielle trate 5 MG Oral Tablet Hydrocodone- Acetaminophen 5-325 MG Hydrocodone-Acetaminophen 5-325 MG 02/25/2020 12:00:00 AM EST 1.0 {tablet_as_needed} active Hydrocodone-Acetaminophen 5-325 MG eCW1 ([facility]) Acetaminophen 325 MG / Hydrocodone Brielle trate 5 MG Oral Tablet Hydrocodone- Acetaminophen 5-325 MG Hydrocodone-Acetaminophen 5-325 MG 02/25/2020 12:00:00 AM EST 1.0 {tablet_as_needed} active Hydrocodone-Acetaminophen 5-325 MG eCW1 ([facility]) Acetaminophen 325 MG / Hydrocodone Brielle trate 5 MG Oral Tablet Hydrocodone- Acetaminophen 5-325 MG Hydrocodone-Acetaminophen 5-325 MG 02/25/2020 12:00:00 AM EST 1.0 {tablet_as_needed} active Hydrocodone-Acetaminophen 5-325 MG eCW1 ([facility]) Acetaminophen 325 MG / Hydrocodone Brielle trate 5 MG Oral Tablet Hydrocodone- Acetaminophen 5-325 MG Hydrocodone-Acetaminophen 5-325 MG 02/25/2020 12:00:00 AM EST 1.0 {tablet_as_needed} active Hydrocodone-Acetaminophen 5-325 MG eCW1 ([facility]) Acetaminophen 325 MG / Hydrocodone Brielle trate 5 MG Oral Tablet Hydrocodone- Acetaminophen 5-325 MG Hydrocodone-Acetaminophen 5-325 MG 02/25/2020 12:00:00 AM EST 1.0 {tablet_as_needed} active Hydrocodone-Acetaminophen 5-325 MG eCW1 ([facility]) Acetaminophen 325 MG / Hydrocodone Brielle trate 5 MG Oral Tablet Hydrocodone- Acetaminophen 5-325 MG Hydrocodone-Acetaminophen 5-325 MG 02/25/2020 12:00:00 AM EST 1.0 {tablet_as_needed} active Hydrocodone-Acetaminophen 5-325 MG eCW1 ([facility]) torsemide 20 MG Oral Tablet Torsemide 20 MG Torsemide 20 MG 02/24/2020 12:00:00 AM EST active Torsemide 20 MG e CW1 ([facility]) torsemide 20 MG Oral Tablet Torsemide 20 MG Torsemide 20 MG 02/24/2020 12:00:00 AM EST active Torsemide 20 MG e CW1 ([facility]) torsemide 10 MG Oral Tablet Torsemide 10 MG Torsemide 10 MG 02/24/2020 12:00:00 AM EST active Torsemide 10 MG e CW1 ([facility]) torsemide 10 MG Oral Tablet Torsemide 10 MG Torsemide 10 MG 02/24/2020 12:00:00 AM EST active Torsemide 10 MG e CW1 ([facility]) torsemide 20 MG Oral Tablet Torsemide 20 MG Torsemide 20 MG 02/24/2020 12:00:00 AM EST active Torsemide 20 MG e CW1 ([facility]) torsemide 20 MG Oral Tablet Torsemide 20 MG Torsemide 20 MG 02/24/2020 12:00:00 AM EST active Torsemide 20 MG e CW1 ([facility]) torsemide 10 MG Oral Tablet Torsemide 10 MG Torsemide 10 MG 02/24/2020 12:00:00 AM EST active Torsemide 10 MG e CW1 ([facility]) torsemide 10 MG Oral Tablet Torsemide 10 MG Torsemide 10 MG 02/24/2020 12:00:00 AM EST active Torsemide 10 MG e CW1 ([facility]) torsemide 20 MG Oral Tablet Torsemide 20 MG Torsemide 20 MG 02/24/2020 12:00:00 AM EST active Torsemide 20 MG e CW1 ([facility]) torsemide 20 MG Oral Tablet Torsemide 20 MG Torsemide 20 MG 02/24/2020 12:00:00 AM EST active Torsemide 20 MG e CW1 ([facility]) torsemide 10 MG Oral Tablet Torsemide 10 MG Torsemide 10 MG 02/24/2020 12:00:00 AM EST active Torsemide 10 MG e CW1 ([facility]) torsemide 10 MG Oral Tablet Torsemide 10 MG Torsemide 10 MG 02/24/2020 12:00:00 AM EST active Torsemide 10 MG e CW1 ([facility]) torsemide 10 MG Oral Tablet Torsemide 10 MG Torsemide 10 MG 02/24/2020 12:00:00 AM EST active Torsemide 10 MG e CW1 ([facility]) torsemide 20 MG Oral Tablet Torsemide 20 MG Torsemide 20 MG 02/24/2020 12:00:00 AM EST active Torsemide 20 MG e CW1 ([facility]) torsemide 10 MG Oral Tablet Torsemide 10 MG Torsemide 10 MG 02/24/2020 12:00:00 AM EST active Torsemide 10 MG e CW1 ([facility]) torsemide 10 MG Oral Tablet Torsemide 10 MG Torsemide 10 MG 02/24/2020 12:00:00 AM EST active Torsemide 10 MG e CW1 ([facility]) torsemide 10 MG Oral Tablet Torsemide 10 MG Torsemide 10 MG 02/24/2020 12:00:00 AM EST active Torsemide 10 MG e CW1 ([facility]) torsemide 10 MG Oral Tablet Torsemide 10 MG Torsemide 10 MG 02/24/2020 12:00:00 AM EST active Torsemide 10 MG e CW1 ([facility]) torsemide 10 MG Oral Tablet Torsemide 10 MG Torsemide 10 MG 02/24/2020 12:00:00 AM EST active Torsemide 10 MG e CW1 ([facility]) torsemide 20 MG Oral Tablet Torsemide 20 MG Torsemide 20 MG 02/24/2020 12:00:00 AM EST active Torsemide 20 MG e CW1 ([facility]) torsemide 20 MG Oral Tablet Torsemide 20 MG Torsemide 20 MG 02/24/2020 12:00:00 AM EST active Torsemide 20 MG e CW1 ([facility]) torsemide 20 MG Oral Tablet Torsemide 20 MG Torsemide 20 MG 02/24/2020 12:00:00 AM EST active Torsemide 20 MG e CW1 ([facility]) torsemide 10 MG Oral Tablet Torsemide 10 MG Torsemide 10 MG 02/24/2020 12:00:00 AM EST active Torsemide 10 MG e CW1 ([facility]) torsemide 20 MG Oral Tablet Torsemide 20 MG Torsemide 20 MG 02/24/2020 12:00:00 AM EST active Torsemide 20 MG e CW1 ([facility]) torsemide 20 MG Oral Tablet Torsemide 20 MG Torsemide 20 MG 02/24/2020 12:00:00 AM EST active Torsemide 20 MG e CW1 ([facility]) torsemide 20 MG Oral Tablet Torsemide 20 MG Torsemide 20 MG 02/24/2020 12:00:00 AM EST active Torsemide 20 MG e CW1 ([facility]) torsemide 20 MG Oral Tablet Torsemide 20 MG Torsemide 20 MG 02/24/2020 12:00:00 AM EST active Torsemide 20 MG e CW1 ([facility]) torsemide 10 MG Oral Tablet Torsemide 10 MG Torsemide 10 MG 02/24/2020 12:00:00 AM EST active Torsemide 10 MG e CW1 ([facility]) torsemide 20 MG Oral Tablet Torsemide 20 MG Torsemide 20 MG 02/24/2020 12:00:00 AM EST active Torsemide 20 MG e CW1 ([facility]) torsemide 20 MG Oral Tablet Torsemide 20 MG Torsemide 20 MG 02/24/2020 12:00:00 AM EST active Torsemide 20 MG e CW1 ([facility]) torsemide 10 MG Oral Tablet Torsemide 10 MG Torsemide 10 MG 02/24/2020 12:00:00 AM EST active Torsemide 10 MG e CW1 ([facility]) torsemide 20 MG Oral Tablet Torsemide 20 MG Torsemide 20 MG 02/24/2020 12:00:00 AM EST active Torsemide 20 MG e CW1 ([facility]) torsemide 10 MG Oral Tablet Torsemide 10 MG Torsemide 10 MG 02/24/2020 12:00:00 AM EST active Torsemide 10 MG e CW1 ([facility]) torsemide 20 MG Oral Tablet Torsemide 20 MG Torsemide 20 MG 02/24/2020 12:00:00 AM EST active Torsemide 20 MG e CW1 ([facility]) torsemide 20 MG Oral Tablet Torsemide 20 MG Torsemide 20 MG 02/24/2020 12:00:00 AM EST active Torsemide 20 MG e CW1 ([facility]) torsemide 10 MG Oral Tablet Torsemide 10 MG Torsemide 10 MG 02/24/2020 12:00:00 AM EST active Torsemide 10 MG e CW1 ([facility]) torsemide 20 MG Oral Tablet Torsemide 20 MG Torsemide 20 MG 02/24/2020 12:00:00 AM EST active Torsemide 20 MG e CW1 ([facility]) torsemide 10 MG Oral Tablet Torsemide 10 MG Torsemide 10 MG 02/24/2020 12:00:00 AM EST active Torsemide 10 MG e CW1 ([facility]) torsemide 10 MG Oral Tablet Torsemide 10 MG Torsemide 10 MG 02/24/2020 12:00:00 AM EST active Torsemide 10 MG e CW1 ([facility]) torsemide 10 MG Oral Tablet Torsemide 10 MG Torsemide 10 MG 02/24/2020 12:00:00 AM EST active Torsemide 10 MG e CW1 ([facility]) torsemide 10 MG Oral Tablet Torsemide 10 MG Torsemide 10 MG 02/24/2020 12:00:00 AM EST active Torsemide 10 MG e CW1 ([facility]) torsemide 10 MG Oral Tablet Torsemide 10 MG Torsemide 10 MG 02/24/2020 12:00:00 AM EST active Torsemide 10 MG e CW1 ([facility]) torsemide 10 MG Oral Tablet Torsemide 10 MG Torsemide 10 MG 02/24/2020 12:00:00 AM EST active Torsemide 10 MG e CW1 ([facility]) torsemide 10 MG Oral Tablet Torsemide 10 MG Torsemide 10 MG 02/24/2020 12:00:00 AM EST active Torsemide 10 MG e CW1 ([facility]) torsemide 20 MG Oral Tablet Torsemide 20 MG Torsemide 20 MG 02/24/2020 12:00:00 AM EST active Torsemide 20 MG e CW1 ([facility]) torsemide 10 MG Oral Tablet Torsemide 10 MG Torsemide 10 MG 02/24/2020 12:00:00 AM EST active Torsemide 10 MG e CW1 ([facility]) torsemide 20 MG Oral Tablet Torsemide 20 MG Torsemide 20 MG 02/24/2020 12:00:00 AM EST active Torsemide 20 MG e CW1 ([facility]) torsemide 20 MG Oral Tablet Torsemide 20 MG Torsemide 20 MG 02/24/2020 12:00:00 AM EST active Torsemide 20 MG e CW1 ([facility]) torsemide 10 MG Oral Tablet Torsemide 10 MG Torsemide 10 MG 02/24/2020 12:00:00 AM EST active Torsemide 10 MG e CW1 ([facility]) torsemide 20 MG Oral Tablet Torsemide 20 MG Torsemide 20 MG 02/24/2020 12:00:00 AM EST active Torsemide 20 MG e CW1 ([facility]) torsemide 10 MG Oral Tablet Torsemide 10 MG Torsemide 10 MG 02/24/2020 12:00:00 AM EST active Torsemide 10 MG e CW1 ([facility]) torsemide 10 MG Oral Tablet Torsemide 10 MG Torsemide 10 MG 02/24/2020 12:00:00 AM EST active Torsemide 10 MG e CW1 ([facility]) torsemide 20 MG Oral Tablet Torsemide 20 MG Torsemide 20 MG 02/24/2020 12:00:00 AM EST active Torsemide 20 MG e CW1 ([facility]) torsemide 10 MG Oral Tablet Torsemide 10 MG Torsemide 10 MG 02/24/2020 12:00:00 AM EST active Torsemide 10 MG e CW1 ([facility]) torsemide 20 MG Oral Tablet Torsemide 20 MG Torsemide 20 MG 02/24/2020 12:00:00 AM EST active Torsemide 20 MG e CW1 ([facility]) torsemide 20 MG Oral Tablet Torsemide 20 MG Torsemide 20 MG 02/24/2020 12:00:00 AM EST active Torsemide 20 MG e CW1 ([facility]) torsemide 10 MG Oral Tablet Torsemide 10 MG Torsemide 10 MG 02/24/2020 12:00:00 AM EST active Torsemide 10 MG e CW1 ([facility]) torsemide 20 MG Oral Tablet Torsemide 20 MG Torsemide 20 MG 02/24/2020 12:00:00 AM EST active Torsemide 20 MG e CW1 ([facility]) torsemide 20 MG Oral Tablet Torsemide 20 MG Torsemide 20 MG 02/24/2020 12:00:00 AM EST active Torsemide 20 MG e CW1 ([facility]) torsemide 20 MG Oral Tablet Torsemide 20 MG Torsemide 20 MG 02/24/2020 12:00:00 AM EST active Torsemide 20 MG e CW1 ([facility]) Walker - Walker - 02/15/2020 12:00:00 AM EST activ e Walker - eCW1 ([facility]) Walker - Walker - 02/15/2020 12:00:00 AM EST activ e Walker - eCW1 ([facility]) Walker - Walker - 02/15/2020 12:00:00 AM EST activ e Walker - eCW1 ([facility]) Walker - Walker - 02/15/2020 12:00:00 AM EST activ e Walker - eCW1 ([facility]) Walker - Walker - 02/15/2020 12:00:00 AM EST activ e Walker - eCW1 ([facility]) Walker - Walker - 02/15/2020 12:00:00 AM EST activ e Walker - eCW1 ([facility]) Walker - Walker - 02/15/2020 12:00:00 AM EST activ e Walker - eCW1 ([facility]) Walker - Walker - 02/15/2020 12:00:00 AM EST activ e Walker - eCW1 ([facility]) Walker - Walker - 02/15/2020 12:00:00 AM EST activ e Walker - eCW1 ([facility]) Walker - Walker - 02/15/2020 12:00:00 AM EST activ e Walker - eCW1 ([facility]) Walker - Walker - 02/15/2020 12:00:00 AM EST activ e Walker - eCW1 ([facility]) Walker - Walker - 02/15/2020 12:00:00 AM EST activ e Walker - eCW1 ([facility]) Walker - Walker - 02/15/2020 12:00:00 AM EST activ e Walker - eCW1 ([facility]) Walker - Walker - 02/15/2020 12:00:00 AM EST activ e Walker - eCW1 ([facility]) Walker - Walker - 02/15/2020 12:00:00 AM EST activ e Walker - eCW1 ([facility]) Walker - Walker - 02/15/2020 12:00:00 AM EST activ e Walker - eCW1 ([facility]) Walker - Walker - 02/15/2020 12:00:00 AM EST activ e Walker - eCW1 ([facility]) Walker - Walker - 02/15/2020 12:00:00 AM EST activ e Walker - eCW1 ([facility]) Walker - Walker - 02/15/2020 12:00:00 AM EST activ e Walker - eCW1 ([facility]) Walker - Walker - 02/15/2020 12:00:00 AM EST activ e Walker - eCW1 ([facility]) Walker - Walker - 02/15/2020 12:00:00 AM EST activ e Walker - eCW1 ([facility]) Walker - Walker - 02/15/2020 12:00:00 AM EST activ e Walker - eCW1 ([facility]) Walker - Walker - 02/15/2020 12:00:00 AM EST activ e Walker - eCW1 ([facility]) Walker - Walker - 02/15/2020 12:00:00 AM EST activ e Walker - eCW1 ([facility]) Walker - Walker - 02/15/2020 12:00:00 AM EST activ e Walker - eCW1 ([facility]) Walker - Walker - 02/15/2020 12:00:00 AM EST activ e Walker - eCW1 ([facility]) Walker - Walker - 02/15/2020 12:00:00 AM EST activ e Walker - eCW1 ([facility]) Walker - Walker - 02/15/2020 12:00:00 AM EST activ e Walker - eCW1 ([facility]) Walker - Walker - 02/15/2020 12:00:00 AM EST activ e Walker - eCW1 ([facility]) Walker - Walker - 02/15/2020 12:00:00 AM EST activ e Walker - eCW1 ([facility]) Walker - Walker - 02/15/2020 12:00:00 AM EST activ e Walker - eCW1 ([facility]) Walker - Walker - 02/15/2020 12:00:00 AM EST activ e Walker - eCW1 ([facility]) Walker - Walker - 02/15/2020 12:00:00 AM EST activ e Walker - eCW1 ([facility]) Walker - Walker - 02/15/2020 12:00:00 AM EST activ e Walker - eCW1 ([facility]) Walker - Walker - 02/15/2020 12:00:00 AM EST activ e Walker - eCW1 ([facility]) Walker - Walker - 02/15/2020 12:00:00 AM EST activ e Walker - eCW1 ([facility]) Walker - Walker - 02/15/2020 12:00:00 AM EST activ e Walker - eCW1 ([facility]) Walker - Walker - 02/15/2020 12:00:00 AM EST activ e Walker - eCW1 ([facility]) Walker - Walker - 02/15/2020 12:00:00 AM EST activ e Walker - eCW1 ([facility]) Walker - Walker - 02/15/2020 12:00:00 AM EST activ e Walker - eCW1 ([facility]) Walker - Walker - 02/15/2020 12:00:00 AM EST activ e Walker - eCW1 ([facility]) Walker - Walker - 02/15/2020 12:00:00 AM EST activ e Walker - eCW1 ([facility]) Walker - Walker - 02/15/2020 12:00:00 AM EST activ e Walker - eCW1 ([facility]) Walker - Walker - 02/15/2020 12:00:00 AM EST activ e Walker - eCW1 ([facility]) Walker - Walker - 02/15/2020 12:00:00 AM EST activ e Walker - eCW1 ([facility]) Walker - Walker - 02/15/2020 12:00:00 AM EST activ e Walker - eCW1 ([facility]) Walker - Walker - 02/15/2020 12:00:00 AM EST activ e Walker - eCW1 ([facility]) Walker - Walker - 02/15/2020 12:00:00 AM EST activ e Walker - eCW1 ([facility]) Walker - Walker - 02/15/2020 12:00:00 AM EST activ e Walker - eCW1 ([facility]) Walker - Walker - 02/15/2020 12:00:00 AM EST activ e Walker - eCW1 ([facility]) Walker - Walker - 02/15/2020 12:00:00 AM EST activ e Walker - eCW1 ([facility]) Walker - Walker - 02/15/2020 12:00:00 AM EST activ e Walker - eCW1 ([facility]) Walker - Walker - 02/15/2020 12:00:00 AM EST activ e Walker - eCW1 ([facility]) Walker - Walker - 02/15/2020 12:00:00 AM EST activ e Walker - eCW1 ([facility]) Walker - Walker - 02/15/2020 12:00:00 AM EST activ e Walker - eCW1 ([facility]) Walker - Walker - 02/15/2020 12:00:00 AM EST activ e Walker - eCW1 ([facility]) Walker - Walker - 02/15/2020 12:00:00 AM EST activ e Walker - eCW1 ([facility]) Walker - Walker - 02/15/2020 12:00:00 AM EST activ e Walker - eCW1 ([facility]) Walker - Walker - 02/15/2020 12:00:00 AM EST activ e Walker - eCW1 ([facility]) Walker - Walker - 02/15/2020 12:00:00 AM EST activ e Walker - eCW1 ([facility]) Walker - Walker - 02/15/2020 12:00:00 AM EST activ e Walker - eCW1 ([facility]) Walker - Walker - 02/15/2020 12:00:00 AM EST activ e Walker - eCW1 ([facility]) Walker - Walker - 02/15/2020 12:00:00 AM EST activ e Walker - eCW1 ([facility]) Walker - Walker - 02/15/2020 12:00:00 AM EST activ e Walker - eCW1 ([facility]) Test Strips - UNK 02/09/2020 12:00:00 AM EST acti ve Test Strips - eCW1 ([facility]) Test Strips - UNK 02/09/2020 12:00:00 AM EST acti ve Test Strips - eCW1 ([facility]) Test Strips - UNK 02/09/2020 12:00:00 AM EST acti ve Test Strips - eCW1 ([facility]) Test Strips - UNK 02/09/2020 12:00:00 AM EST acti ve Test Strips - eCW1 ([facility]) Test Strips - UNK 02/09/2020 12:00:00 AM EST acti ve Test Strips - eCW1 ([facility]) Test Strips - UNK 02/09/2020 12:00:00 AM EST acti ve Test Strips - eCW1 ([facility]) Test Strips - UNK 02/09/2020 12:00:00 AM EST acti ve Test Strips - eCW1 ([facility]) Test Strips - UNK 02/09/2020 12:00:00 AM EST acti ve Test Strips - eCW1 ([facility]) Test Strips - UNK 02/09/2020 12:00:00 AM EST acti ve Test Strips - eCW1 ([facility]) Test Strips - UNK 02/09/2020 12:00:00 AM EST acti ve Test Strips - eCW1 ([facility]) Test Strips - UNK 02/09/2020 12:00:00 AM EST acti ve Test Strips - eCW1 ([facility]) Test Strips - UNK 02/09/2020 12:00:00 AM EST acti ve Test Strips - eCW1 ([facility]) Test Strips - K 02/09/2020 12:00:00 AM EST acti ve Test Strips - eCW1 ([facility]) Test Strips - K 02/09/2020 12:00:00 AM EST acti ve Test Strips - eCW1 ([facility]) Test Strips - K 02/09/2020 12:00:00 AM EST acti ve Test Strips - eCW1 ([facility]) Test Strips - K 02/09/2020 12:00:00 AM EST acti ve Test Strips - eCW1 ([facility]) Test Strips - K 02/09/2020 12:00:00 AM EST acti ve Test Strips - eCW1 ([facility]) Test Strips - K 02/09/2020 12:00:00 AM EST acti ve Test Strips - eCW1 ([facility]) Test Strips - K 02/09/2020 12:00:00 AM EST acti ve Test Strips - eCW1 ([facility]) Test Strips - K 02/09/2020 12:00:00 AM EST acti ve Test Strips - eCW1 ([facility]) Test Strips - K 02/09/2020 12:00:00 AM EST acti ve Test Strips - eCW1 ([facility]) Test Strips - K 02/09/2020 12:00:00 AM EST acti ve Test Strips - eCW1 ([facility]) Test Strips - UNK 02/09/2020 12:00:00 AM EST acti ve Test Strips - eCW1 ([facility]) Test Strips - K 02/09/2020 12:00:00 AM EST acti ve Test Strips - eCW1 ([facility]) Test Strips - K 02/09/2020 12:00:00 AM EST acti ve Test Strips - eCW1 ([facility]) Test Strips - K 02/09/2020 12:00:00 AM EST acti ve Test Strips - eCW1 ([facility]) Test Strips - K 02/09/2020 12:00:00 AM EST acti ve Test Strips - eCW1 ([facility]) Test Strips - K 02/09/2020 12:00:00 AM EST acti ve Test Strips - eCW1 ([facility]) Test Strips - K 02/09/2020 12:00:00 AM EST acti ve Test Strips - eCW1 ([facility]) Test Strips - K 02/09/2020 12:00:00 AM EST acti ve Test Strips - eCW1 ([facility]) Test Strips - K 02/09/2020 12:00:00 AM EST acti ve Test Strips - eCW1 ([facility]) Test Strips - K 02/09/2020 12:00:00 AM EST acti ve Test Strips - eCW1 ([facility]) Test Strips - K 02/09/2020 12:00:00 AM EST acti ve Test Strips - eCW1 ([facility]) Test Strips - K 02/09/2020 12:00:00 AM EST acti ve Test Strips - eCW1 ([facility]) Test Strips - K 02/09/2020 12:00:00 AM EST acti ve Test Strips - eCW1 ([facility]) Test Strips - K 02/09/2020 12:00:00 AM EST acti ve Test Strips - eCW1 ([facility]) Test Strips - K 02/09/2020 12:00:00 AM EST acti ve Test Strips - eCW1 ([facility]) Test Strips - UNK 02/09/2020 12:00:00 AM EST acti ve Test Strips - eCW1 ([facility]) Test Strips - UNK 02/09/2020 12:00:00 AM EST acti ve Test Strips - eCW1 ([facility]) Test Strips - UNK 02/09/2020 12:00:00 AM EST acti ve Test Strips - eCW1 ([facility]) Test Strips - UNK 02/09/2020 12:00:00 AM EST acti ve Test Strips - eCW1 ([facility]) Test Strips - K 02/09/2020 12:00:00 AM EST acti ve Test Strips - eCW1 ([facility]) Test Strips - K 02/09/2020 12:00:00 AM EST acti ve Test Strips - eCW1 ([facility]) Test Strips - K 02/09/2020 12:00:00 AM EST acti ve Test Strips - eCW1 ([facility]) Test Strips - K 02/09/2020 12:00:00 AM EST acti ve Test Strips - eCW1 ([facility]) Test Strips - K 02/09/2020 12:00:00 AM EST acti ve Test Strips - eCW1 ([facility]) Test Strips - K 02/09/2020 12:00:00 AM EST acti ve Test Strips - eCW1 ([facility]) Test Strips - K 02/09/2020 12:00:00 AM EST acti ve Test Strips - eCW1 ([facility]) Test Strips - K 02/09/2020 12:00:00 AM EST acti ve Test Strips - eCW1 ([facility]) Test Strips - K 02/09/2020 12:00:00 AM EST acti ve Test Strips - eCW1 ([facility]) Test Strips - UNK 02/09/2020 12:00:00 AM EST acti ve Test Strips - eCW1 ([facility]) Test Strips - K 02/09/2020 12:00:00 AM EST acti ve Test Strips - eCW1 ([facility]) Test Strips - UNK 02/09/2020 12:00:00 AM EST acti ve Test Strips - eCW1 ([facility]) Test Strips - UNK 02/09/2020 12:00:00 AM EST acti ve Test Strips - eCW1 ([facility]) Test Strips - UNK 02/09/2020 12:00:00 AM EST acti ve Test Strips - eCW1 ([facility]) Test Strips - UNK 02/09/2020 12:00:00 AM EST acti ve Test Strips - eCW1 ([facility]) Test Strips - UNK 02/09/2020 12:00:00 AM EST acti ve Test Strips - eCW1 ([facility]) Test Strips - UNK 02/09/2020 12:00:00 AM EST acti ve Test Strips - eCW1 ([facility]) Test Strips - K 02/09/2020 12:00:00 AM EST acti ve Test Strips - eCW1 ([facility]) Test Strips - K 02/09/2020 12:00:00 AM EST acti ve Test Strips - eCW1 ([facility]) Test Strips - K 02/09/2020 12:00:00 AM EST acti ve Test Strips - eCW1 ([facility]) POLYETHYLENE GLYCOL 3350 142 MG/ML Oral Solution [Miralax] M iralax 02/09/2020 12:00:00 AM EST completed MEDENT ([facility]) magnesium citrate 58.2 MG/ML Oral Solution Magnesium Citrate 02/09/2020 12:00:00 AM EST completed MEDENT ([facility]) Test Strips - UNK 02/09/2020 12:00:00 AM EST acti ve Test Strips - eCW1 ([facility]) Test Strips - UNK 02/09/2020 12:00:00 AM EST acti ve Test Strips - eCW1 ([facility]) Test Strips - UNK 02/09/2020 12:00:00 AM EST acti ve Test Strips - eCW1 ([facility]) Test Strips - UNK 02/09/2020 12:00:00 AM EST acti ve Test Strips - eCW1 ([facility]) Test Strips - UNK 02/09/2020 12:00:00 AM EST acti ve Test Strips - eCW1 ([facility]) Test Strips - UNK 02/09/2020 12:00:00 AM EST acti ve Test Strips - eCW1 ([facility]) 3 ML insulin detemir 100 UNT/ML Pen Inje ctor [Levemir] Levemir FlexTouch 100 UNIT/ML Levemir FlexTouch 100 UNIT/ML 02/03/2020 12:00:00 AM EST active Levemir FlexTouch 100 UNIT/ML eC W1 ([facility]) Amlodipine 5 MG Oral Tablet AmLODIPine Besylate 5 MG AmLODIP ine Besylate 5 MG 02/03/2020 12:00:00 AM EST 1.0 {tablet} active AmLODIPine Besylate 5 MG eCW1 ([facility]) 3 ML insulin detemir 100 UNT/ML Pen Inje ctor [Levemir] Levemir FlexTouch 100 UNIT/ML Levemir FlexTouch 100 UNIT/ML 02/03/2020 12:00:00 AM EST active Levemir FlexTouch 100 UNIT/ML eC W1 ([facility]) 3 ML insulin detemir 100 UNT/ML Pen Inje ctor [Levemir] Levemir FlexTouch 100 UNIT/ML Levemir FlexTouch 100 UNIT/ML 02/03/2020 12:00:00 AM EST active Levemir FlexTouch 100 UNIT/ML eC W1 ([facility]) Acetaminophen 325 MG Oral Tablet Acetaminophen 325 MG 2019 12:00:00 AM EST 2.0 {tablets_as_needed} active Acetaminophen 325 MG eCW1 ([facility]) 3 ML insulin detemir 100 UNT/ML Pen Inje ctor [Levemir] Levemir FlexTouch 100 UNIT/ML Levemir FlexTouch 100 UNIT/ML 02/03/2020 12:00:00 AM EST active Levemir FlexTouch 100 UNIT/ML eC W1 ([facility]) 3 ML insulin detemir 100 UNT/ML Pen Inje ctor [Levemir] Levemir FlexTouch 100 UNIT/ML Levemir FlexTouch 100 UNIT/ML 02/03/2020 12:00:00 AM EST active Levemir FlexTouch 100 UNIT/ML eC W1 ([facility]) 3 ML insulin detemir 100 UNT/ML Pen Inje ctor [Levemir] Levemir FlexTouch 100 UNIT/ML Levemir FlexTouch 100 UNIT/ML 02/03/2020 12:00:00 AM EST active Levemir FlexTouch 100 UNIT/ML eC W1 ([facility]) Amlodipine 5 MG Oral Tablet AmLODIPine Besylate 5 MG AmLODIP ine Besylate 5 MG 02/03/2020 12:00:00 AM EST 1.0 {tablet} active AmLODIPine Besylate 5 MG eCW1 ([facility]) 3 ML insulin detemir 100 UNT/ML Pen Inje ctor [Levemir] Levemir FlexTouch 100 UNIT/ML Levemir FlexTouch 100 UNIT/ML 02/03/2020 12:00:00 AM EST active Levemir FlexTouch 100 UNIT/ML eC W1 ([facility]) Amlodipine 5 MG Oral Tablet AmLODIPine Besylate 5 MG AmLODIP ine Besylate 5 MG 02/03/2020 12:00:00 AM EST 1.0 {tablet} active AmLODIPine Besylate 5 MG eCW1 ([facility]) Acetaminophen 325 MG Oral Tablet Acetaminophen 325 MG 2019 12:00:00 AM EST 2.0 {tablets_as_needed} active Acetaminophen 325 MG eCW1 ([facility]) Acetaminophen 325 MG Oral Tablet Acetaminophen 325 MG 2019 12:00:00 AM EST 2.0 {tablets_as_needed} active Acetaminophen 325 MG eCW1 ([facility]) 3 ML insulin detemir 100 UNT/ML Pen Inje ctor [Levemir] Levemir FlexTouch 100 UNIT/ML Levemir FlexTouch 100 UNIT/ML 02/03/2020 12:00:00 AM EST active Levemir FlexTouch 100 UNIT/ML eC W1 ([facility]) 3 ML insulin detemir 100 UNT/ML Pen Inje ctor [Levemir] Levemir FlexTouch 100 UNIT/ML Levemir FlexTouch 100 UNIT/ML 02/03/2020 12:00:00 AM EST active Levemir FlexTouch 100 UNIT/ML eC W1 ([facility]) Amlodipine 5 MG Oral Tablet AmLODIPine Besylate 5 MG AmLODIP ine Besylate 5 MG 02/03/2020 12:00:00 AM EST 1.0 {tablet} active AmLODIPine Besylate 5 MG eCW1 ([facility]) 3 ML insulin detemir 100 UNT/ML Pen Inje ctor [Levemir] Levemir FlexTouch 100 UNIT/ML Levemir FlexTouch 100 UNIT/ML 02/03/2020 12:00:00 AM EST active Levemir FlexTouch 100 UNIT/ML eC W1 ([facility]) Acetaminophen 325 MG Oral Tablet Acetaminophen 325 MG 2019 12:00:00 AM EST 2.0 {tablets_as_needed} active Acetaminophen 325 MG eCW1 ([facility]) 3 ML insulin detemir 100 UNT/ML Pen Inje ctor [Levemir] Levemir FlexTouch 100 UNIT/ML Levemir FlexTouch 100 UNIT/ML 02/03/2020 12:00:00 AM EST active Levemir FlexTouch 100 UNIT/ML eC W1 ([facility]) 3 ML insulin detemir 100 UNT/ML Pen Inje ctor [Levemir] Levemir FlexTouch 100 UNIT/ML Levemir FlexTouch 100 UNIT/ML 02/03/2020 12:00:00 AM EST active Levemir FlexTouch 100 UNIT/ML eC W1 ([facility]) 3 ML insulin detemir 100 UNT/ML Pen Inje ctor [Levemir] Levemir FlexTouch 100 UNIT/ML Levemir FlexTouch 100 UNIT/ML 02/03/2020 12:00:00 AM EST active Levemir FlexTouch 100 UNIT/ML eC W1 ([facility]) 3 ML insulin detemir 100 UNT/ML Pen Inje ctor [Levemir] Levemir FlexTouch 100 UNIT/ML Levemir FlexTouch 100 UNIT/ML 02/03/2020 12:00:00 AM EST active Levemir FlexTouch 100 UNIT/ML eC W1 ([facility]) 3 ML insulin detemir 100 UNT/ML Pen Inje ctor [Levemir] Levemir FlexTouch 100 UNIT/ML Levemir FlexTouch 100 UNIT/ML 02/03/2020 12:00:00 AM EST active Levemir FlexTouch 100 UNIT/ML eC W1 ([facility]) 3 ML insulin detemir 100 UNT/ML Pen Inje ctor [Levemir] Levemir FlexTouch 100 UNIT/ML Levemir FlexTouch 100 UNIT/ML 02/03/2020 12:00:00 AM EST active Levemir FlexTouch 100 UNIT/ML eC W1 ([facility]) 3 ML insulin detemir 100 UNT/ML Pen Inje ctor [Levemir] Levemir FlexTouch 100 UNIT/ML Levemir FlexTouch 100 UNIT/ML 02/03/2020 12:00:00 AM EST active Levemir FlexTouch 100 UNIT/ML eC W1 ([facility]) Amlodipine 5 MG Oral Tablet AmLODIPine Besylate 5 MG AmLODIP ine Besylate 5 MG 02/03/2020 12:00:00 AM EST 1.0 {tablet} active AmLODIPine Besylate 5 MG eCW1 ([facility]) Amlodipine 5 MG Oral Tablet AmLODIPine Besylate 5 MG AmLODIP ine Besylate 5 MG 02/03/2020 12:00:00 AM EST 1.0 {tablet} active AmLODIPine Besylate 5 MG eCW1 ([facility]) 3 ML insulin detemir 100 UNT/ML Pen Inje ctor [Levemir] Levemir FlexTouch 100 UNIT/ML Levemir FlexTouch 100 UNIT/ML 02/03/2020 12:00:00 AM EST active Levemir FlexTouch 100 UNIT/ML eC W1 ([facility]) 3 ML insulin detemir 100 UNT/ML Pen Inje ctor [Levemir] Levemir FlexTouch 100 UNIT/ML Levemir FlexTouch 100 UNIT/ML 02/03/2020 12:00:00 AM EST active Levemir FlexTouch 100 UNIT/ML eC W1 ([facility]) 3 ML insulin detemir 100 UNT/ML Pen Inje ctor [Levemir] Levemir FlexTouch 100 UNIT/ML Levemir FlexTouch 100 UNIT/ML 02/03/2020 12:00:00 AM EST active Levemir FlexTouch 100 UNIT/ML eC W1 ([facility]) Acetaminophen 325 MG Oral Tablet Acetaminophen 325 MG 2019 12:00:00 AM EST 2.0 {tablets_as_needed} active Acetaminophen 325 MG eCW1 ([facility]) Acetaminophen 325 MG Oral Tablet Acetaminophen 325 MG 2019 12:00:00 AM EST 2.0 {tablets_as_needed} active Acetaminophen 325 MG eCW1 ([facility]) Acetaminophen 325 MG Oral Tablet Acetaminophen 325 MG 2019 12:00:00 AM EST 2.0 {tablets_as_needed} active Acetaminophen 325 MG eCW1 ([facility]) Acetaminophen 325 MG Oral Tablet Acetaminophen 325 MG 2019 12:00:00 AM EST 2.0 {tablets_as_needed} active Acetaminophen 325 MG eCW1 ([facility]) 3 ML insulin detemir 100 UNT/ML Pen Inje ctor [Levemir] Levemir FlexTouch 100 UNIT/ML Levemir FlexTouch 100 UNIT/ML 02/03/2020 12:00:00 AM EST active Levemir FlexTouch 100 UNIT/ML eC W1 ([facility]) 3 ML insulin detemir 100 UNT/ML Pen Inje ctor [Levemir] Levemir FlexTouch 100 UNIT/ML Levemir FlexTouch 100 UNIT/ML 02/03/2020 12:00:00 AM EST active Levemir FlexTouch 100 UNIT/ML eC W1 ([facility]) 3 ML insulin detemir 100 UNT/ML Pen Inje ctor [Levemir] Levemir FlexTouch 100 UNIT/ML Levemir FlexTouch 100 UNIT/ML 02/03/2020 12:00:00 AM EST active Levemir FlexTouch 100 UNIT/ML eC W1 ([facility]) Acetaminophen 325 MG Oral Tablet Acetaminophen 325 MG 2019 12:00:00 AM EST 2.0 {tablets_as_needed} active Acetaminophen 325 MG eCW1 ([facility]) Acetaminophen 325 MG Oral Tablet Acetaminophen 325 MG 2019 12:00:00 AM EST 2.0 {tablets_as_needed} active Acetaminophen 325 MG eCW1 ([facility]) 3 ML insulin detemir 100 UNT/ML Pen Inje ctor [Levemir] Levemir FlexTouch 100 UNIT/ML Levemir FlexTouch 100 UNIT/ML 02/03/2020 12:00:00 AM EST active Levemir FlexTouch 100 UNIT/ML eC W1 ([facility]) Acetaminophen 325 MG Oral Tablet Acetaminophen 325 MG 2019 12:00:00 AM EST 2.0 {tablets_as_needed} active Acetaminophen 325 MG eCW1 ([facility]) Amlodipine 5 MG Oral Tablet AmLODIPine Besylate 5 MG AmLODIP ine Besylate 5 MG 02/03/2020 12:00:00 AM EST 1.0 {tablet} active AmLODIPine Besylate 5 MG eCW1 ([facility]) 3 ML insulin detemir 100 UNT/ML Pen Inje ctor [Levemir] Levemir FlexTouch 100 UNIT/ML Levemir FlexTouch 100 UNIT/ML 02/03/2020 12:00:00 AM EST active Levemir FlexTouch 100 UNIT/ML eC W1 ([facility]) 3 ML insulin detemir 100 UNT/ML Pen Inje ctor [Levemir] Levemir FlexTouch 100 UNIT/ML Levemir FlexTouch 100 UNIT/ML 02/03/2020 12:00:00 AM EST active Levemir FlexTouch 100 UNIT/ML eC W1 ([facility]) 3 ML insulin detemir 100 UNT/ML Pen Inje ctor [Levemir] Levemir FlexTouch 100 UNIT/ML Levemir FlexTouch 100 UNIT/ML 02/03/2020 12:00:00 AM EST active Levemir FlexTouch 100 UNIT/ML eC W1 ([facility]) 3 ML insulin detemir 100 UNT/ML Pen Inje ctor [Levemir] Levemir FlexTouch 100 UNIT/ML Levemir FlexTouch 100 UNIT/ML 02/03/2020 12:00:00 AM EST active Levemir FlexTouch 100 UNIT/ML eC W1 ([facility]) 3 ML insulin detemir 100 UNT/ML Pen Inje ctor [Levemir] Levemir FlexTouch 100 UNIT/ML Levemir FlexTouch 100 UNIT/ML 02/03/2020 12:00:00 AM EST active Levemir FlexTouch 100 UNIT/ML eC W1 ([facility]) Acetaminophen 325 MG Oral Tablet Acetaminophen 325 MG 2019 12:00:00 AM EST 2.0 {tablets_as_needed} active Acetaminophen 325 MG eCW1 ([facility]) Acetaminophen 325 MG Oral Tablet Acetaminophen 325 MG 2019 12:00:00 AM EST 2.0 {tablets_as_needed} active Acetaminophen 325 MG eCW1 ([facility]) Acetaminophen 325 MG Oral Tablet Acetaminophen 325 MG 2019 12:00:00 AM EST 2.0 {tablets_as_needed} active Acetaminophen 325 MG eCW1 ([facility]) 3 ML insulin detemir 100 UNT/ML Pen Inje ctor [Levemir] Levemir FlexTouch 100 UNIT/ML Levemir FlexTouch 100 UNIT/ML 02/03/2020 12:00:00 AM EST active Levemir FlexTouch 100 UNIT/ML eC W1 ([facility]) Acetaminophen 325 MG Oral Tablet Acetaminophen 325 MG 2019 12:00:00 AM EST 2.0 {tablets_as_needed} active Acetaminophen 325 MG eCW1 ([facility]) 3 ML insulin detemir 100 UNT/ML Pen Inje ctor [Levemir] Levemir FlexTouch 100 UNIT/ML Levemir FlexTouch 100 UNIT/ML 02/03/2020 12:00:00 AM EST active Levemir FlexTouch 100 UNIT/ML eC W1 ([facility]) Amlodipine 5 MG Oral Tablet AmLODIPine Besylate 5 MG AmLODIP ine Besylate 5 MG 02/03/2020 12:00:00 AM EST 1.0 {tablet} active AmLODIPine Besylate 5 MG eCW1 ([facility]) 3 ML insulin detemir 100 UNT/ML Pen Inje ctor [Levemir] Levemir FlexTouch 100 UNIT/ML Levemir FlexTouch 100 UNIT/ML 02/03/2020 12:00:00 AM EST active Levemir FlexTouch 100 UNIT/ML eC W1 ([facility]) 3 ML insulin detemir 100 UNT/ML Pen Inje ctor [Levemir] Levemir FlexTouch 100 UNIT/ML Levemir FlexTouch 100 UNIT/ML 02/03/2020 12:00:00 AM EST active Levemir FlexTouch 100 UNIT/ML eC W1 ([facility]) Amlodipine 5 MG Oral Tablet AmLODIPine Besylate 5 MG AmLODIP ine Besylate 5 MG 02/03/2020 12:00:00 AM EST 1.0 {tablet} active AmLODIPine Besylate 5 MG eCW1 ([facility]) 3 ML insulin detemir 100 UNT/ML Pen Inje ctor [Levemir] Levemir FlexTouch 100 UNIT/ML Levemir FlexTouch 100 UNIT/ML 02/03/2020 12:00:00 AM EST active Levemir FlexTouch 100 UNIT/ML eC W1 ([facility]) Acetaminophen 325 MG Oral Tablet Acetaminophen 325 MG 2019 12:00:00 AM EST 2.0 {tablets_as_needed} active Acetaminophen 325 MG eCW1 ([facility]) 3 ML insulin detemir 100 UNT/ML Pen Inje ctor [Levemir] Levemir FlexTouch 100 UNIT/ML Levemir FlexTouch 100 UNIT/ML 02/03/2020 12:00:00 AM EST active Levemir FlexTouch 100 UNIT/ML eC W1 ([facility]) 3 ML insulin detemir 100 UNT/ML Pen Inje ctor [Levemir] Levemir FlexTouch 100 UNIT/ML Levemir FlexTouch 100 UNIT/ML 02/03/2020 12:00:00 AM EST active Levemir FlexTouch 100 UNIT/ML eC W1 ([facility]) Acetaminophen 325 MG Oral Tablet Acetaminophen 325 MG 2019 12:00:00 AM EST 2.0 {tablets_as_needed} active Acetaminophen 325 MG eCW1 ([facility]) Amlodipine 5 MG Oral Tablet AmLODIPine Besylate 5 MG AmLODIP ine Besylate 5 MG 02/03/2020 12:00:00 AM EST 1.0 {tablet} active AmLODIPine Besylate 5 MG eCW1 ([facility]) Hydrochlorothiazide 12.5 MG Oral Tablet Hydrochlorothiazide 12.5 MG 02/03/2020 12:00:00 AM EST 1.0 {tablet_in_the_morning} acti ve Hydrochlorothiazide 12.5 MG eCW1 ([facility]) 3 ML insulin detemir 100 UNT/ML Pen Inje ctor [Levemir] Levemir FlexTouch 100 UNIT/ML Levemir FlexTouch 100 UNIT/ML 02/03/2020 12:00:00 AM EST active Levemir FlexTouch 100 UNIT/ML eC W1 ([facility]) Amlodipine 5 MG Oral Tablet AmLODIPine Besylate 5 MG AmLODIP ine Besylate 5 MG 02/03/2020 12:00:00 AM EST 1.0 {tablet} active AmLODIPine Besylate 5 MG eCW1 ([facility]) 3 ML insulin detemir 100 UNT/ML Pen Inje ctor [Levemir] Levemir FlexTouch 100 UNIT/ML Levemir FlexTouch 100 UNIT/ML 02/03/2020 12:00:00 AM EST active Levemir FlexTouch 100 UNIT/ML eC W1 ([facility]) 3 ML insulin detemir 100 UNT/ML Pen Inje ctor [Levemir] Levemir FlexTouch 100 UNIT/ML Levemir FlexTouch 100 UNIT/ML 02/03/2020 12:00:00 AM EST active Levemir FlexTouch 100 UNIT/ML eC W1 ([facility]) 3 ML insulin detemir 100 UNT/ML Pen Inje ctor [Levemir] Levemir FlexTouch 100 UNIT/ML Levemir FlexTouch 100 UNIT/ML 02/03/2020 12:00:00 AM EST active Levemir FlexTouch 100 UNIT/ML eC W1 ([facility]) 3 ML insulin detemir 100 UNT/ML Pen Inje ctor [Levemir] Levemir FlexTouch 100 UNIT/ML Levemir FlexTouch 100 UNIT/ML 02/03/2020 12:00:00 AM EST active Levemir FlexTouch 100 UNIT/ML eC W1 ([facility]) 3 ML insulin detemir 100 UNT/ML Pen Inje ctor [Levemir] Levemir FlexTouch 100 UNIT/ML Levemir FlexTouch 100 UNIT/ML 02/03/2020 12:00:00 AM EST active Levemir FlexTouch 100 UNIT/ML eC W1 ([facility]) 3 ML insulin detemir 100 UNT/ML Pen Inje ctor [Levemir] Levemir FlexTouch 100 UNIT/ML Levemir FlexTouch 100 UNIT/ML 02/03/2020 12:00:00 AM EST active Levemir FlexTouch 100 UNIT/ML eC W1 ([facility]) Acetaminophen 325 MG Oral Tablet Acetaminophen 325 MG 2019 12:00:00 AM EST 2.0 {tablets_as_needed} active Acetaminophen 325 MG eCW1 ([facility]) 3 ML insulin detemir 100 UNT/ML Pen Inje ctor [Levemir] Levemir FlexTouch 100 UNIT/ML Levemir FlexTouch 100 UNIT/ML 02/03/2020 12:00:00 AM EST active Levemir FlexTouch 100 UNIT/ML eC W1 ([facility]) Acetaminophen 325 MG Oral Tablet Acetaminophen 325 MG 2019 12:00:00 AM EST 2.0 {tablets_as_needed} active Acetaminophen 325 MG eCW1 ([facility]) Amlodipine 5 MG Oral Tablet AmLODIPine Besylate 5 MG AmLODIP ine Besylate 5 MG 02/03/2020 12:00:00 AM EST 1.0 {tablet} active AmLODIPine Besylate 5 MG eCW1 ([facility]) Acetaminophen 325 MG Oral Tablet Acetaminophen 325 MG 2019 12:00:00 AM EST 2.0 {tablets_as_needed} active Acetaminophen 325 MG eCW1 ([facility]) 3 ML insulin detemir 100 UNT/ML Pen Inje ctor [Levemir] Levemir FlexTouch 100 UNIT/ML Levemir FlexTouch 100 UNIT/ML 02/03/2020 12:00:00 AM EST active Levemir FlexTouch 100 UNIT/ML eC W1 ([facility]) 3 ML insulin detemir 100 UNT/ML Pen Inje ctor [Levemir] Levemir FlexTouch 100 UNIT/ML Levemir FlexTouch 100 UNIT/ML 02/03/2020 12:00:00 AM EST active Levemir FlexTouch 100 UNIT/ML eC W1 ([facility]) 3 ML insulin detemir 100 UNT/ML Pen Inje ctor [Levemir] Levemir FlexTouch 100 UNIT/ML Levemir FlexTouch 100 UNIT/ML 02/03/2020 12:00:00 AM EST active Levemir FlexTouch 100 UNIT/ML eC W1 ([facility]) 3 ML insulin detemir 100 UNT/ML Pen Inje ctor [Levemir] Levemir FlexTouch 100 UNIT/ML Levemir FlexTouch 100 UNIT/ML 02/03/2020 12:00:00 AM EST active Levemir FlexTouch 100 UNIT/ML eC W1 ([facility]) Acetaminophen 325 MG Oral Tablet Acetaminophen 325 MG 2019 12:00:00 AM EST 2.0 {tablets_as_needed} active Acetaminophen 325 MG eCW1 ([facility]) 3 ML insulin detemir 100 UNT/ML Pen Inje ctor [Levemir] Levemir FlexTouch 100 UNIT/ML Levemir FlexTouch 100 UNIT/ML 02/03/2020 12:00:00 AM EST active Levemir FlexTouch 100 UNIT/ML eC W1 ([facility]) Amlodipine 5 MG Oral Tablet AmLODIPine Besylate 5 MG AmLODIP ine Besylate 5 MG 02/03/2020 12:00:00 AM EST 1.0 {tablet} active AmLODIPine Besylate 5 MG eCW1 ([facility]) Acetaminophen 325 MG Oral Tablet Acetaminophen 325 MG 2019 12:00:00 AM EST 2.0 {tablets_as_needed} active Acetaminophen 325 MG eCW1 ([facility]) 3 ML insulin detemir 100 UNT/ML Pen Inje ctor [Levemir] Levemir FlexTouch 100 UNIT/ML Levemir FlexTouch 100 UNIT/ML 02/03/2020 12:00:00 AM EST active Levemir FlexTouch 100 UNIT/ML eC W1 ([facility]) Acetaminophen 325 MG Oral Tablet Acetaminophen 325 MG 2019 12:00:00 AM EST 2.0 {tablets_as_needed} active Acetaminophen 325 MG eCW1 ([facility]) Hydrochlorothiazide 12.5 MG Oral Tablet Hydrochlorothiazide 12.5 MG 02/03/2020 12:00:00 AM EST 1.0 {tablet_in_the_morning} acti ve Hydrochlorothiazide 12.5 MG eCW1 ([facility]) Amlodipine 5 MG Oral Tablet AmLODIPine Besylate 5 MG AmLODIP ine Besylate 5 MG 02/03/2020 12:00:00 AM EST 1.0 {tablet} active AmLODIPine Besylate 5 MG eCW1 ([facility]) Acetaminophen 325 MG Oral Tablet Acetaminophen 325 MG 2019 12:00:00 AM EST 2.0 {tablets_as_needed} active Acetaminophen 325 MG eCW1 ([facility]) 3 ML insulin detemir 100 UNT/ML Pen Inje ctor [Levemir] Levemir FlexTouch 100 UNIT/ML Levemir FlexTouch 100 UNIT/ML 02/03/2020 12:00:00 AM EST active Levemir FlexTouch 100 UNIT/ML eC W1 ([facility]) Amlodipine 5 MG Oral Tablet AmLODIPine Besylate 5 MG AmLODIP ine Besylate 5 MG 02/03/2020 12:00:00 AM EST 1.0 {tablet} active AmLODIPine Besylate 5 MG eCW1 ([facility]) 3 ML insulin detemir 100 UNT/ML Pen Inje ctor [Levemir] Levemir FlexTouch 100 UNIT/ML Levemir FlexTouch 100 UNIT/ML 02/03/2020 12:00:00 AM EST active Levemir FlexTouch 100 UNIT/ML eC W1 ([facility]) Amlodipine 5 MG Oral Tablet AmLODIPine Besylate 5 MG AmLODIP ine Besylate 5 MG 02/03/2020 12:00:00 AM EST 1.0 {tablet} active AmLODIPine Besylate 5 MG eCW1 ([facility]) 3 ML insulin detemir 100 UNT/ML Pen Inje ctor [Levemir] Levemir FlexTouch 100 UNIT/ML Levemir FlexTouch 100 UNIT/ML 02/03/2020 12:00:00 AM EST active Levemir FlexTouch 100 UNIT/ML eC W1 ([facility]) Amlodipine 5 MG Oral Tablet AmLODIPine Besylate 5 MG AmLODIP ine Besylate 5 MG 02/03/2020 12:00:00 AM EST 1.0 {tablet} active AmLODIPine Besylate 5 MG eCW1 ([facility]) Acetaminophen 325 MG Oral Tablet Acetaminophen 325 MG 2019 12:00:00 AM EST 2.0 {tablets_as_needed} active Acetaminophen 325 MG eCW1 ([facility]) 3 ML insulin detemir 100 UNT/ML Pen Inje ctor [Levemir] Levemir FlexTouch 100 UNIT/ML Levemir FlexTouch 100 UNIT/ML 02/03/2020 12:00:00 AM EST active Levemir FlexTouch 100 UNIT/ML eC W1 ([facility]) 3 ML insulin detemir 100 UNT/ML Pen Inje ctor [Levemir] Levemir FlexTouch 100 UNIT/ML Levemir FlexTouch 100 UNIT/ML 02/03/2020 12:00:00 AM EST active Levemir FlexTouch 100 UNIT/ML eC W1 ([facility]) Acetaminophen 325 MG Oral Tablet Acetaminophen 325 MG 2019 12:00:00 AM EST 2.0 {tablets_as_needed} active Acetaminophen 325 MG eCW1 ([facility]) Amlodipine 5 MG Oral Tablet AmLODIPine Besylate 5 MG AmLODIP ine Besylate 5 MG 02/03/2020 12:00:00 AM EST 1.0 {tablet} active AmLODIPine Besylate 5 MG eCW1 ([facility]) Acetaminophen 325 MG Oral Tablet Acetaminophen 325 MG 2019 12:00:00 AM EST 2.0 {tablets_as_needed} active Acetaminophen 325 MG eCW1 ([facility]) 3 ML insulin detemir 100 UNT/ML Pen Inje ctor [Levemir] Levemir FlexTouch 100 UNIT/ML Levemir FlexTouch 100 UNIT/ML 02/03/2020 12:00:00 AM EST active Levemir FlexTouch 100 UNIT/ML eC W1 ([facility]) 3 ML insulin detemir 100 UNT/ML Pen Inje ctor [Levemir] Levemir FlexTouch 100 UNIT/ML Levemir FlexTouch 100 UNIT/ML 02/03/2020 12:00:00 AM EST active Levemir FlexTouch 100 UNIT/ML eC W1 ([facility]) 3 ML insulin detemir 100 UNT/ML Pen Inje ctor [Levemir] Levemir FlexTouch 100 UNIT/ML Levemir FlexTouch 100 UNIT/ML 02/03/2020 12:00:00 AM EST active Levemir FlexTouch 100 UNIT/ML eC W1 ([facility]) 3 ML insulin detemir 100 UNT/ML Pen Inje ctor [Levemir] Levemir FlexTouch 100 UNIT/ML Levemir FlexTouch 100 UNIT/ML 02/03/2020 12:00:00 AM EST active Levemir FlexTouch 100 UNIT/ML eC W1 ([facility]) Acetaminophen 325 MG Oral Tablet Acetaminophen 325 MG 2019 12:00:00 AM EST 2.0 {tablets_as_needed} active Acetaminophen 325 MG eCW1 ([facility]) 3 ML insulin detemir 100 UNT/ML Pen Inje ctor [Levemir] Levemir FlexTouch 100 UNIT/ML Levemir FlexTouch 100 UNIT/ML 02/03/2020 12:00:00 AM EST active Levemir FlexTouch 100 UNIT/ML eC W1 ([facility]) 3 ML insulin detemir 100 UNT/ML Pen Inje ctor [Levemir] Levemir FlexTouch 100 UNIT/ML Levemir FlexTouch 100 UNIT/ML 02/03/2020 12:00:00 AM EST active Levemir FlexTouch 100 UNIT/ML eC W1 ([facility]) Acetaminophen 325 MG Oral Tablet Acetaminophen 325 MG 2019 12:00:00 AM EST 2.0 {tablets_as_needed} active Acetaminophen 325 MG eCW1 ([facility]) 3 ML insulin detemir 100 UNT/ML Pen Inje ctor [Levemir] Levemir FlexTouch 100 UNIT/ML Levemir FlexTouch 100 UNIT/ML 02/03/2020 12:00:00 AM EST active Levemir FlexTouch 100 UNIT/ML eC W1 ([facility]) 3 ML insulin detemir 100 UNT/ML Pen Inje ctor [Levemir] Levemir FlexTouch 100 UNIT/ML Levemir FlexTouch 100 UNIT/ML 02/03/2020 12:00:00 AM EST active Levemir FlexTouch 100 UNIT/ML eC W1 ([facility]) Amlodipine 5 MG Oral Tablet AmLODIPine Besylate 5 MG AmLODIP ine Besylate 5 MG 02/03/2020 12:00:00 AM EST 1.0 {tablet} active AmLODIPine Besylate 5 MG eCW1 ([facility]) 3 ML insulin detemir 100 UNT/ML Pen Inje ctor [Levemir] Levemir FlexTouch 100 UNIT/ML Levemir FlexTouch 100 UNIT/ML 02/03/2020 12:00:00 AM EST active Levemir FlexTouch 100 UNIT/ML eC W1 ([facility]) 3 ML insulin detemir 100 UNT/ML Pen Inje ctor [Levemir] Levemir FlexTouch 100 UNIT/ML Levemir FlexTouch 100 UNIT/ML 02/03/2020 12:00:00 AM EST active Levemir FlexTouch 100 UNIT/ML eC W1 ([facility]) 3 ML insulin detemir 100 UNT/ML Pen Inje ctor [Levemir] Levemir FlexTouch 100 UNIT/ML Levemir FlexTouch 100 UNIT/ML 02/03/2020 12:00:00 AM EST active Levemir FlexTouch 100 UNIT/ML eC W1 ([facility]) 3 ML insulin detemir 100 UNT/ML Pen Inje ctor [Levemir] Levemir FlexTouch 100 UNIT/ML Levemir FlexTouch 100 UNIT/ML 02/03/2020 12:00:00 AM EST active Levemir FlexTouch 100 UNIT/ML eC W1 ([facility]) 3 ML insulin detemir 100 UNT/ML Pen Inje ctor [Levemir] Levemir FlexTouch 100 UNIT/ML Levemir FlexTouch 100 UNIT/ML 02/03/2020 12:00:00 AM EST active Levemir FlexTouch 100 UNIT/ML eC W1 ([facility]) 3 ML insulin detemir 100 UNT/ML Pen Inje ctor [Levemir] Levemir FlexTouch 100 UNIT/ML Levemir FlexTouch 100 UNIT/ML 02/03/2020 12:00:00 AM EST active Levemir FlexTouch 100 UNIT/ML eC W1 ([facility]) Amlodipine 5 MG Oral Tablet AmLODIPine Besylate 5 MG AmLODIP ine Besylate 5 MG 02/03/2020 12:00:00 AM EST 1.0 {tablet} active AmLODIPine Besylate 5 MG eCW1 ([facility]) Hydrochlorothiazide 12.5 MG Oral Capsule hydrochlorothiazide (MICROZIDE) 12.5 MG capsule hydrochlorothiazide (MICROZIDE) 12.5 MG capsule 2019 12:00:00 AM EST aborted [facility] ferrous sulfate 325 MG Delayed Release O ral Tablet Ferrous Sulfate 325 (65 Fe) MG Ferrous Sulfate 325 (65 Fe) MG 01/26/2020 12:00:00 AM EST 1. 0 {tablet} active Ferrous Sulfate 325 (65 Fe) MG eCW1 ([facility]) ferrous sulfate 325 MG Delayed Release O ral Tablet Ferrous Sulfate 325 (65 Fe) MG Ferrous Sulfate 325 (65 Fe) MG 01/26/2020 12:00:00 AM EST 1. 0 {tablet} active Ferrous Sulfate 325 (65 Fe) MG eCW1 ([facility]) [place] 5/16" UNK 01/26/2020 12:00:00 AM EST active [place] 5/16" eCW1 ([facility]) [place] 5/16" UNK 01/26/2020 12:00:00 AM EST active [place] 5/16" eCW1 ([facility]) [place] 5/16" UNK 01/26/2020 12:00:00 AM EST active [place] 5/16" eCW1 ([facility]) [place] 5/16" UNK 01/26/2020 12:00:00 AM EST active [place] 516" eCW1 ([facility]) [place] 516" UNK 01/26/2020 12:00:00 AM EST active [place] 516" eCW1 ([facility]) ferrous sulfate 325 MG Delayed Release O ral Tablet Ferrous Sulfate 325 (65 Fe) MG Ferrous Sulfate 325 (65 Fe) MG 01/26/2020 12:00:00 AM EST 1. 0 {tablet} active Ferrous Sulfate 325 (65 Fe) MG eCW1 ([facility]) [place] 516" UNK 01/26/2020 12:00:00 AM EST active [place] 516" eCW1 ([facility]) ferrous sulfate 325 MG Delayed Release O ral Tablet Ferrous Sulfate 325 (65 Fe) MG Ferrous Sulfate 325 (65 Fe) MG 01/26/2020 12:00:00 AM EST 1. 0 {tablet} active Ferrous Sulfate 325 (65 Fe) MG eCW1 ([facility]) ferrous sulfate 325 MG Delayed Release O ral Tablet Ferrous Sulfate 325 (65 Fe) MG Ferrous Sulfate 325 (65 Fe) MG 01/26/2020 12:00:00 AM EST 1. 0 {tablet} active Ferrous Sulfate 325 (65 Fe) MG eCW1 ([facility]) [place] 516" UNK 01/26/2020 12:00:00 AM EST active [place] 516" eCW1 ([facility]) ferrous sulfate 325 MG Delayed Release O ral Tablet Ferrous Sulfate 325 (65 Fe) MG Ferrous Sulfate 325 (65 Fe) MG 01/26/2020 12:00:00 AM EST 1. 0 {tablet} active Ferrous Sulfate 325 (65 Fe) MG eCW1 ([facility]) ferrous sulfate 325 MG Delayed Release O ral Tablet Ferrous Sulfate 325 (65 Fe) MG Ferrous Sulfate 325 (65 Fe) MG 01/26/2020 12:00:00 AM EST 1. 0 {tablet} active Ferrous Sulfate 325 (65 Fe) MG eCW1 ([facility]) [place] 5/16" UNK 01/26/2020 12:00:00 AM EST active [place] 516" eCW1 ([facility]) ferrous sulfate 325 MG Delayed Release O ral Tablet Ferrous Sulfate 325 (65 Fe) MG Ferrous Sulfate 325 (65 Fe) MG 01/26/2020 12:00:00 AM EST 1. 0 {tablet} active Ferrous Sulfate 325 (65 Fe) MG eCW1 ([facility]) [place] 5/16" UNK 01/26/2020 12:00:00 AM EST active [place] 5/16" eCW1 ([facility]) ferrous sulfate 325 MG Delayed Release O ral Tablet Ferrous Sulfate 325 (65 Fe) MG Ferrous Sulfate 325 (65 Fe) MG 01/26/2020 12:00:00 AM EST 1. 0 {tablet} active Ferrous Sulfate 325 (65 Fe) MG eCW1 ([facility]) ferrous sulfate 325 MG Delayed Release O ral Tablet Ferrous Sulfate 325 (65 Fe) MG Ferrous Sulfate 325 (65 Fe) MG 01/26/2020 12:00:00 AM EST 1. 0 {tablet} active Ferrous Sulfate 325 (65 Fe) MG eCW1 ([facility]) ferrous sulfate 325 MG Delayed Release O ral Tablet Ferrous Sulfate 325 (65 Fe) MG Ferrous Sulfate 325 (65 Fe) MG 01/26/2020 12:00:00 AM EST 1. 0 {tablet} active Ferrous Sulfate 325 (65 Fe) MG eCW1 ([facility]) ferrous sulfate 325 MG Delayed Release O ral Tablet Ferrous Sulfate 325 (65 Fe) MG Ferrous Sulfate 325 (65 Fe) MG 01/26/2020 12:00:00 AM EST 1. 0 {tablet} active Ferrous Sulfate 325 (65 Fe) MG eCW1 ([facility]) [place] 5/16" UNK 01/26/2020 12:00:00 AM EST active [place] 5/16" eCW1 ([facility]) [place] 5/16" UNK 01/26/2020 12:00:00 AM EST active [place] 5/16" eCW1 ([facility]) ferrous sulfate 325 MG Delayed Release O ral Tablet Ferrous Sulfate 325 (65 Fe) MG Ferrous Sulfate 325 (65 Fe) MG 01/26/2020 12:00:00 AM EST 1. 0 {tablet} active Ferrous Sulfate 325 (65 Fe) MG eCW1 ([facility]) [place] 5/16" UNK 01/26/2020 12:00:00 AM EST active [place] 5/16" eCW1 ([facility]) [place] 5/16" UNK 01/26/2020 12:00:00 AM EST active [place] 5/16" eCW1 ([facility]) ferrous sulfate 325 MG Delayed Release O ral Tablet Ferrous Sulfate 325 (65 Fe) MG Ferrous Sulfate 325 (65 Fe) MG 01/26/2020 12:00:00 AM EST 1. 0 {tablet} active Ferrous Sulfate 325 (65 Fe) MG eCW1 ([facility]) [place] 5/16" UNK 01/26/2020 12:00:00 AM EST active [place] 5/16" eCW1 ([facility]) [place] 5/16" UNK 01/26/2020 12:00:00 AM EST active [place] 5/16" eCW1 ([facility]) ferrous sulfate 325 MG Delayed Release O ral Tablet Ferrous Sulfate 325 (65 Fe) MG Ferrous Sulfate 325 (65 Fe) MG 01/26/2020 12:00:00 AM EST 1. 0 {tablet} active Ferrous Sulfate 325 (65 Fe) MG eCW1 ([facility]) [place] 5/16" UNK 01/26/2020 12:00:00 AM EST active [place] 5/16" eCW1 ([facility]) [place] 5/16" UNK 01/26/2020 12:00:00 AM EST active [place] 5/16" eCW1 ([facility]) ferrous sulfate 325 MG Delayed Release O ral Tablet Ferrous Sulfate 325 (65 Fe) MG Ferrous Sulfate 325 (65 Fe) MG 01/26/2020 12:00:00 AM EST 1. 0 {tablet} active Ferrous Sulfate 325 (65 Fe) MG eCW1 ([facility]) ferrous sulfate 325 MG Delayed Release O ral Tablet Ferrous Sulfate 325 (65 Fe) MG Ferrous Sulfate 325 (65 Fe) MG 01/26/2020 12:00:00 AM EST 1. 0 {tablet} active Ferrous Sulfate 325 (65 Fe) MG eCW1 ([facility]) ferrous sulfate 325 MG Delayed Release O ral Tablet Ferrous Sulfate 325 (65 Fe) MG Ferrous Sulfate 325 (65 Fe) MG 01/26/2020 12:00:00 AM EST 1. 0 {tablet} active Ferrous Sulfate 325 (65 Fe) MG eCW1 ([facility]) [place] 5/16" UNK 01/26/2020 12:00:00 AM EST active [place] 5/16" eCW1 ([facility]) ferrous sulfate 325 MG Delayed Release O ral Tablet Ferrous Sulfate 325 (65 Fe) MG Ferrous Sulfate 325 (65 Fe) MG 01/26/2020 12:00:00 AM EST 1. 0 {tablet} active Ferrous Sulfate 325 (65 Fe) MG eCW1 ([facility]) [place] 5/16" UNK 01/26/2020 12:00:00 AM EST active [place] 5/16" eCW1 ([facility]) [place] 5/16" UNK 01/26/2020 12:00:00 AM EST active [place] 5/16" eCW1 ([facility]) ferrous sulfate 325 MG Delayed Release O ral Tablet Ferrous Sulfate 325 (65 Fe) MG Ferrous Sulfate 325 (65 Fe) MG 01/26/2020 12:00:00 AM EST 1. 0 {tablet} active Ferrous Sulfate 325 (65 Fe) MG W1 ([facility]) ferrous sulfate 325 MG Delayed Release O ral Tablet Ferrous Sulfate 325 (65 Fe) MG Ferrous Sulfate 325 (65 Fe) MG 01/26/2020 12:00:00 AM EST 1. 0 {tablet} active Ferrous Sulfate 325 (65 Fe) MG eCW1 ([facility]) ferrous sulfate 325 MG Delayed Release O ral Tablet Ferrous Sulfate 325 (65 Fe) MG Ferrous Sulfate 325 (65 Fe) MG 01/26/2020 12:00:00 AM EST 1. 0 {tablet} active Ferrous Sulfate 325 (65 Fe) MG eCW1 ([facility]) [place] 5/16" UNK 01/26/2020 12:00:00 AM EST active [place] 5/16" eCW1 ([facility]) [place] 5/16" UNK 01/26/2020 12:00:00 AM EST active [place] 5/16" eCW1 ([facility]) ferrous sulfate 325 MG Delayed Release O ral Tablet Ferrous Sulfate 325 (65 Fe) MG Ferrous Sulfate 325 (65 Fe) MG 01/26/2020 12:00:00 AM EST 1. 0 {tablet} active Ferrous Sulfate 325 (65 Fe) MG eCW1 ([facility]) ferrous sulfate 325 MG Delayed Release O ral Tablet Ferrous Sulfate 325 (65 Fe) MG Ferrous Sulfate 325 (65 Fe) MG 01/26/2020 12:00:00 AM EST 1. 0 {tablet} active Ferrous Sulfate 325 (65 Fe) MG eCW1 ([facility]) ferrous sulfate 325 MG Delayed Release O ral Tablet Ferrous Sulfate 325 (65 Fe) MG Ferrous Sulfate 325 (65 Fe) MG 01/26/2020 12:00:00 AM EST 1. 0 {tablet} active Ferrous Sulfate 325 (65 Fe) MG eCW1 ([facility]) [place] 5/16" UNK 01/26/2020 12:00:00 AM EST active [place] 5/16" eCW1 ([facility]) [place] 5/16" UNK 01/26/2020 12:00:00 AM EST active [place] 5/16" eCW1 ([facility]) ferrous sulfate 325 MG Delayed Release O ral Tablet Ferrous Sulfate 325 (65 Fe) MG Ferrous Sulfate 325 (65 Fe) MG 01/26/2020 12:00:00 AM EST 1. 0 {tablet} active Ferrous Sulfate 325 (65 Fe) MG eCW1 ([facility]) [place] 5/16" UNK 01/26/2020 12:00:00 AM EST active [place] 5/16" eCW1 ([facility]) ferrous sulfate 325 MG Delayed Release O ral Tablet Ferrous Sulfate 325 (65 Fe) MG Ferrous Sulfate 325 (65 Fe) MG 01/26/2020 12:00:00 AM EST 1. 0 {tablet} active Ferrous Sulfate 325 (65 Fe) MG eCW1 ([facility]) ferrous sulfate 325 MG Delayed Release O ral Tablet Ferrous Sulfate 325 (65 Fe) MG Ferrous Sulfate 325 (65 Fe) MG 01/26/2020 12:00:00 AM EST 1. 0 {tablet} active Ferrous Sulfate 325 (65 Fe) MG eCW1 ([facility]) [place] 5/16" UNK 01/26/2020 12:00:00 AM EST active [place] 5/16" eCW1 ([facility]) ferrous sulfate 325 MG Delayed Release O ral Tablet Ferrous Sulfate 325 (65 Fe) MG Ferrous Sulfate 325 (65 Fe) MG 01/26/2020 12:00:00 AM EST 1. 0 {tablet} active Ferrous Sulfate 325 (65 Fe) MG eCW1 ([facility]) ferrous sulfate 325 MG Delayed Release O ral Tablet Ferrous Sulfate 325 (65 Fe) MG Ferrous Sulfate 325 (65 Fe) MG 01/26/2020 12:00:00 AM EST 1. 0 {tablet} active Ferrous Sulfate 325 (65 Fe) MG eCW1 ([facility]) ferrous sulfate 325 MG Delayed Release O ral Tablet Ferrous Sulfate 325 (65 Fe) MG Ferrous Sulfate 325 (65 Fe) MG 01/26/2020 12:00:00 AM EST 1. 0 {tablet} active Ferrous Sulfate 325 (65 Fe) MG [facility] ([facility]) ferrous sulfate 325 MG Delayed Release O ral Tablet Ferrous Sulfate 325 (65 Fe) MG Ferrous Sulfate 325 (65 Fe) MG 01/26/2020 12:00:00 AM EST 1. 0 {tablet} active Ferrous Sulfate 325 (65 Fe) MG [facility] ([facility]) [place] 5/16" UNK 01/26/2020 12:00:00 AM EST active [place] 5/16" W ([facility]) [place] 5/16" UNK 01/26/2020 12:00:00 AM EST active [place] 5/16" W ([facility]) [place] 5/16" UNK 01/26/2020 12:00:00 AM EST active [place] 5/16" eCW1 ([facility]) ferrous sulfate 325 MG Delayed Release O ral Tablet Ferrous Sulfate 325 (65 Fe) MG Ferrous Sulfate 325 (65 Fe) MG 01/26/2020 12:00:00 AM EST 1. 0 {tablet} active Ferrous Sulfate 325 (65 Fe) MG eC ([facility]) [place] 5/16" UNK 01/26/2020 12:00:00 AM EST active [place] 5/16" eCW1 ([facility]) [place] 5/16" UNK 01/26/2020 12:00:00 AM EST active [place] 5/16" eCW1 ([facility]) [place] 5/16" UNK 01/26/2020 12:00:00 AM EST active [place] 5/16" eCW1 ([facility]) [place] 5/16" UNK 01/26/2020 12:00:00 AM EST active [place] 5/16" eCW1 ([facility]) [place] 5/16" UNK 01/26/2020 12:00:00 AM EST active [place] 5/16" eCW1 ([facility]) [place] 5/16" UNK 01/26/2020 12:00:00 AM EST active [place] 5/16" eCW1 ([facility]) ferrous sulfate 325 MG Delayed Release O ral Tablet Ferrous Sulfate 325 (65 Fe) MG Ferrous Sulfate 325 (65 Fe) MG 01/26/2020 12:00:00 AM EST 1. 0 {tablet} active Ferrous Sulfate 325 (65 Fe) MG [facility] ([facility]) ferrous sulfate 325 MG Delayed Release O ral Tablet Ferrous Sulfate 325 (65 Fe) MG Ferrous Sulfate 325 (65 Fe) MG 01/26/2020 12:00:00 AM EST 1. 0 {tablet} active Ferrous Sulfate 325 (65 Fe) MG [facility] ([facility]) [place] 5/16" UNK 01/26/2020 12:00:00 AM EST active [place] 5/16" eCW1 ([facility]) [place] 5/16" UNK 01/26/2020 12:00:00 AM EST active [place] 5/16" eCW1 ([facility]) ferrous sulfate 325 MG Delayed Release O ral Tablet Ferrous Sulfate 325 (65 Fe) MG Ferrous Sulfate 325 (65 Fe) MG 01/26/2020 12:00:00 AM EST 1. 0 {tablet} active Ferrous Sulfate 325 (65 Fe) MG eCW1 ([facility]) ferrous sulfate 325 MG Delayed Release O ral Tablet Ferrous Sulfate 325 (65 Fe) MG Ferrous Sulfate 325 (65 Fe) MG 01/26/2020 12:00:00 AM EST 1. 0 {tablet} active Ferrous Sulfate 325 (65 Fe) MG eCW1 ([facility]) ferrous sulfate 325 MG Delayed Release O ral Tablet Ferrous Sulfate 325 (65 Fe) MG Ferrous Sulfate 325 (65 Fe) MG 01/26/2020 12:00:00 AM EST 1. 0 {tablet} active Ferrous Sulfate 325 (65 Fe) MG eCW1 ([facility]) ferrous sulfate 325 MG Delayed Release O ral Tablet Ferrous Sulfate 325 (65 Fe) MG Ferrous Sulfate 325 (65 Fe) MG 01/26/2020 12:00:00 AM EST 1. 0 {tablet} active Ferrous Sulfate 325 (65 Fe) MG W1 ([facility]) [place] 5/16" UNK 01/26/2020 12:00:00 AM EST active [place] 5/16" W1 ([facility]) [place] 5/16" UNK 01/26/2020 12:00:00 AM EST active [place] 5/16" W1 ([facility]) [place] 5/16" UNK 01/26/2020 12:00:00 AM EST active [place] 5/16" W1 ([facility]) [place] 5/16" UNK 01/26/2020 12:00:00 AM EST active [place] 5/16" eCW1 ([facility]) ferrous sulfate 325 MG Delayed Release O ral Tablet Ferrous Sulfate 325 (65 Fe) MG Ferrous Sulfate 325 (65 Fe) MG 01/26/2020 12:00:00 AM EST 1. 0 {tablet} active Ferrous Sulfate 325 (65 Fe) MG [facility] ([facility]) [place] 5/16" UNK 01/26/2020 12:00:00 AM EST active [place] 5/16" W1 ([facility]) [place] 5/16" UNK 01/26/2020 12:00:00 AM EST active [place] 5/16" W1 ([facility]) [place] 5/16" UNK 01/26/2020 12:00:00 AM EST active [place] 5/16" eCW1 ([facility]) [place] 5/16" UNK 01/26/2020 12:00:00 AM EST active [place] 5/16" eCW1 ([facility]) ferrous sulfate 325 MG Delayed Release O ral Tablet Ferrous Sulfate 325 (65 Fe) MG Ferrous Sulfate 325 (65 Fe) MG 01/26/2020 12:00:00 AM EST 1. 0 {tablet} active Ferrous Sulfate 325 (65 Fe) MG eCW1 ([facility]) [place] 5/16" UNK 01/26/2020 12:00:00 AM EST active [place] 5/16" eCW1 ([facility]) ferrous sulfate 325 MG Delayed Release O ral Tablet Ferrous Sulfate 325 (65 Fe) MG Ferrous Sulfate 325 (65 Fe) MG 01/26/2020 12:00:00 AM EST 1. 0 {tablet} active Ferrous Sulfate 325 (65 Fe) MG eCW1 ([facility]) [place] 5/16" UNK 01/26/2020 12:00:00 AM EST active [place] 5/16" eCW1 ([facility]) ferrous sulfate 325 MG Delayed Release O ral Tablet Ferrous Sulfate 325 (65 Fe) MG Ferrous Sulfate 325 (65 Fe) MG 01/26/2020 12:00:00 AM EST 1. 0 {tablet} active Ferrous Sulfate 325 (65 Fe) MG eCW1 ([facility]) [place] 5/16" UNK 01/26/2020 12:00:00 AM EST active [place] 5/16" eCW1 ([facility]) [place] 5/16" UNK 01/26/2020 12:00:00 AM EST active [place] 5/16" eCW1 ([facility]) [place] 5/16" UNK 01/26/2020 12:00:00 AM EST active [place] 5/16" eCW1 ([facility]) [place] 5/16" UNK 01/26/2020 12:00:00 AM EST active [place] 5/16" eCW1 ([facility]) [place] 5/16" UNK 01/26/2020 12:00:00 AM EST active [place] 5/16" eCW1 ([facility]) ferrous sulfate 325 MG Delayed Release O ral Tablet Ferrous Sulfate 325 (65 Fe) MG Ferrous Sulfate 325 (65 Fe) MG 01/26/2020 12:00:00 AM EST 1. 0 {tablet} active Ferrous Sulfate 325 (65 Fe) MG eCW1 ([facility]) [place] 5/16" UNK 01/26/2020 12:00:00 AM EST active [place] 5/16" eCW1 ([facility]) ferrous sulfate 325 MG Delayed Release O ral Tablet Ferrous Sulfate 325 (65 Fe) MG Ferrous Sulfate 325 (65 Fe) MG 01/26/2020 12:00:00 AM EST 1. 0 {tablet} active Ferrous Sulfate 325 (65 Fe) MG eCW1 ([facility]) [place] 5/16" UNK 01/26/2020 12:00:00 AM EST active [place] 5/16" eCW1 ([facility]) [place] 5/16" UNK 01/26/2020 12:00:00 AM EST active [place] 5/16" eCW1 ([facility]) ferrous sulfate 325 MG Delayed Release O ral Tablet Ferrous Sulfate 325 (65 Fe) MG Ferrous Sulfate 325 (65 Fe) MG 01/26/2020 12:00:00 AM EST 1. 0 {tablet} active Ferrous Sulfate 325 (65 Fe) MG eCW1 ([facility]) [place] 5/16" UNK 01/26/2020 12:00:00 AM EST active [place] 5/16" eCW1 ([facility]) ferrous sulfate 325 MG Delayed Release O ral Tablet Ferrous Sulfate 325 (65 Fe) MG Ferrous Sulfate 325 (65 Fe) MG 01/26/2020 12:00:00 AM EST 1. 0 {tablet} active Ferrous Sulfate 325 (65 Fe) MG eCW1 ([facility]) ferrous sulfate 325 MG Delayed Release O ral Tablet Ferrous Sulfate 325 (65 Fe) MG Ferrous Sulfate 325 (65 Fe) MG 01/26/2020 12:00:00 AM EST 1. 0 {tablet} active Ferrous Sulfate 325 (65 Fe) MG eCW1 ([facility]) [place] 5/16" UNK 01/26/2020 12:00:00 AM EST active [place] 5/16" eCW1 ([facility]) ferrous sulfate 325 MG Delayed Release O ral Tablet Ferrous Sulfate 325 (65 Fe) MG Ferrous Sulfate 325 (65 Fe) MG 01/26/2020 12:00:00 AM EST 1. 0 {tablet} active Ferrous Sulfate 325 (65 Fe) MG eCW1 ([facility]) ferrous sulfate 325 MG Delayed Release O ral Tablet Ferrous Sulfate 325 (65 Fe) MG Ferrous Sulfate 325 (65 Fe) MG 01/26/2020 12:00:00 AM EST 1. 0 {tablet} active Ferrous Sulfate 325 (65 Fe) MG W1 ([facility]) [place] 5/16" UNK 01/26/2020 12:00:00 AM EST active [place] 5/16" eCW1 ([facility]) [place] 5/16" UNK 01/26/2020 12:00:00 AM EST active [place] 5/16" eCW1 ([facility]) [place] 5/16" UNK 01/26/2020 12:00:00 AM EST active [place] 5/16" W1 ([facility]) [place] 5/16" UNK 01/26/2020 12:00:00 AM EST active [place] 5/16" eCW1 ([facility]) ferrous sulfate 325 MG Delayed Release O ral Tablet Ferrous Sulfate 325 (65 Fe) MG Ferrous Sulfate 325 (65 Fe) MG 01/26/2020 12:00:00 AM EST 1. 0 {tablet} active Ferrous Sulfate 325 (65 Fe) MG W1 ([facility] [facility] [place] 5/16" UNK 01/26/2020 12:00:00 AM EST active [place] 5/16" W1 ([facility]) [place] 5/16" UNK 01/26/2020 12:00:00 AM EST active [place] 5/16" eCW1 ([facility]) ferrous sulfate 325 MG Delayed Release O ral Tablet Ferrous Sulfate 325 (65 Fe) MG Ferrous Sulfate 325 (65 Fe) MG 01/26/2020 12:00:00 AM EST 1. 0 {tablet} active Ferrous Sulfate 325 (65 Fe) MG W1 ([facility]) [place] 5/16" UNK 01/26/2020 12:00:00 AM EST active [place] 5/16" eCW1 ([facility]) [place] 5/16" UNK 01/26/2020 12:00:00 AM EST active [place] 5/16" eCW1 ([facility]) ferrous sulfate 325 MG Delayed Release O ral Tablet Ferrous Sulfate 325 (65 Fe) MG Ferrous Sulfate 325 (65 Fe) MG 01/26/2020 12:00:00 AM EST 1. 0 {tablet} active Ferrous Sulfate 325 (65 Fe) MG eCW1 ([facility]) ferrous sulfate 325 MG Delayed Release O ral Tablet Ferrous Sulfate 325 (65 Fe) MG Ferrous Sulfate 325 (65 Fe) MG 01/26/2020 12:00:00 AM EST 1. 0 {tablet} active Ferrous Sulfate 325 (65 Fe) MG eCW1 ([facility]) ferrous sulfate 325 MG Delayed Release O ral Tablet Ferrous Sulfate 325 (65 Fe) MG Ferrous Sulfate 325 (65 Fe) MG 01/26/2020 12:00:00 AM EST 1. 0 {tablet} active Ferrous Sulfate 325 (65 Fe) MG eCW1 ([facility]) [place] 5/16" UNK 01/26/2020 12:00:00 AM EST active [place] 5/16" eCW1 ([facility]) [place] 5/16" UNK 01/26/2020 12:00:00 AM EST active [place] 5/16" eCW1 ([facility]) ferrous sulfate 325 MG Delayed Release O ral Tablet Ferrous Sulfate 325 (65 Fe) MG Ferrous Sulfate 325 (65 Fe) MG 01/26/2020 12:00:00 AM EST 1. 0 {tablet} active Ferrous Sulfate 325 (65 Fe) MG eCW1 ([facility]) ferrous sulfate 325 MG Delayed Release O ral Tablet Ferrous Sulfate 325 (65 Fe) MG Ferrous Sulfate 325 (65 Fe) MG 01/26/2020 12:00:00 AM EST 1. 0 {tablet} active Ferrous Sulfate 325 (65 Fe) MG eCW1 ([facility]) ferrous sulfate 325 MG Delayed Release O ral Tablet Ferrous Sulfate 325 (65 Fe) MG Ferrous Sulfate 325 (65 Fe) MG 01/26/2020 12:00:00 AM EST 1. 0 {tablet} active Ferrous Sulfate 325 (65 Fe) MG eCW1 ([facility]) ferrous sulfate 325 MG Delayed Release O ral Tablet Ferrous Sulfate 325 (65 Fe) MG Ferrous Sulfate 325 (65 Fe) MG 01/26/2020 12:00:00 AM EST 1. 0 {tablet} active Ferrous Sulfate 325 (65 Fe) MG eCW1 ([facility]) ferrous sulfate 325 MG Delayed Release O ral Tablet Ferrous Sulfate 325 (65 Fe) MG Ferrous Sulfate 325 (65 Fe) MG 01/26/2020 12:00:00 AM EST 1. 0 {tablet} active Ferrous Sulfate 325 (65 Fe) MG eCW1 ([facility]) ferrous sulfate 325 MG Delayed Release O ral Tablet Ferrous Sulfate 325 (65 Fe) MG Ferrous Sulfate 325 (65 Fe) MG 01/26/2020 12:00:00 AM EST 1. 0 {tablet} active Ferrous Sulfate 325 (65 Fe) MG eCW1 ([facility]) ferrous sulfate 325 MG Delayed Release O ral Tablet Ferrous Sulfate 325 (65 Fe) MG Ferrous Sulfate 325 (65 Fe) MG 01/26/2020 12:00:00 AM EST 1. 0 {tablet} active Ferrous Sulfate 325 (65 Fe) MG eCW1 ([facility]) [place] 5/16" UNK 01/26/2020 12:00:00 AM EST active [place] 5/16" eCW1 ([facility]) ferrous sulfate 325 MG Delayed Release O ral Tablet Ferrous Sulfate 325 (65 Fe) MG Ferrous Sulfate 325 (65 Fe) MG 01/26/2020 12:00:00 AM EST 1. 0 {tablet} active Ferrous Sulfate 325 (65 Fe) MG eCW1 ([facility]) ferrous sulfate 325 MG Delayed Release O ral Tablet Ferrous Sulfate 325 (65 Fe) MG Ferrous Sulfate 325 (65 Fe) MG 01/26/2020 12:00:00 AM EST 1. 0 {tablet} active Ferrous Sulfate 325 (65 Fe) MG eCW1 ([facility]) [place] 5/16" UNK 01/26/2020 12:00:00 AM EST active [place] 5/16" eCW1 ([facility]) ferrous sulfate 325 MG Delayed Release O ral Tablet Ferrous Sulfate 325 (65 Fe) MG Ferrous Sulfate 325 (65 Fe) MG 01/26/2020 12:00:00 AM EST 1. 0 {tablet} active Ferrous Sulfate 325 (65 Fe) MG eCW1 ([facility]) [place] 5/16" UNK 01/26/2020 12:00:00 AM EST active [place] 5/16" eCW1 ([facility]) [place] 5/16" UNK 01/26/2020 12:00:00 AM EST active [place] 516" eCW1 ([facility]) ferrous sulfate 325 MG Delayed Release O ral Tablet Ferrous Sulfate 325 (65 Fe) MG Ferrous Sulfate 325 (65 Fe) MG 01/26/2020 12:00:00 AM EST 1. 0 {tablet} active Ferrous Sulfate 325 (65 Fe) MG eCW1 ([facility]) ferrous sulfate 325 MG Delayed Release O ral Tablet Ferrous Sulfate 325 (65 Fe) MG Ferrous Sulfate 325 (65 Fe) MG 01/26/2020 12:00:00 AM EST 1. 0 {tablet} active Ferrous Sulfate 325 (65 Fe) MG eCW1 ([facility]) ferrous sulfate 325 MG Delayed Release O ral Tablet Ferrous Sulfate 325 (65 Fe) MG Ferrous Sulfate 325 (65 Fe) MG 01/26/2020 12:00:00 AM EST 1. 0 {tablet} active Ferrous Sulfate 325 (65 Fe) MG W1 ([facility]) ferrous sulfate 325 MG Delayed Release O ral Tablet Ferrous Sulfate 325 (65 Fe) MG Ferrous Sulfate 325 (65 Fe) MG 01/26/2020 12:00:00 AM EST 1. 0 {tablet} active Ferrous Sulfate 325 (65 Fe) MG [facility] ([facility]) ferrous sulfate 325 MG Delayed Release O ral Tablet Ferrous Sulfate 325 (65 Fe) MG Ferrous Sulfate 325 (65 Fe) MG 01/26/2020 12:00:00 AM EST 1. 0 {tablet} active Ferrous Sulfate 325 (65 Fe) MG eCW1 ([facility]) ferrous sulfate 325 MG Delayed Release O ral Tablet Ferrous Sulfate 325 (65 Fe) MG Ferrous Sulfate 325 (65 Fe) MG 01/26/2020 12:00:00 AM EST 1. 0 {tablet} active Ferrous Sulfate 325 (65 Fe) MG eCW1 ([facility]) ferrous sulfate 325 MG Delayed Release O ral Tablet Ferrous Sulfate 325 (65 Fe) MG Ferrous Sulfate 325 (65 Fe) MG 01/26/2020 12:00:00 AM EST 1. 0 {tablet} active Ferrous Sulfate 325 (65 Fe) MG eCW1 ([facility]) [place] 5/16" UNK 01/26/2020 12:00:00 AM EST active [place] 516" eCW1 ([facility]) Lancets - Lancets - 12/07/2019 12:00:00 AM EDT act mukesh Lancets - eCW1 ([facility]) Lancets - Lancets - 12/07/2019 12:00:00 AM EDT act mukesh Lancets - eCW1 ([facility]) Lancets - Lancets - 12/07/2019 12:00:00 AM EDT act mukesh Lancets - eCW1 ([facility]) Glucometer UNK 12/07/2019 12:00:00 AM EDT active Glucometer eCW1 ([facility]) Lancets - Lancets - 12/07/2019 12:00:00 AM EDT act mukesh Lancets - eCW1 ([facility]) Glucometer UNK 12/07/2019 12:00:00 AM EDT active Glucometer eCW1 ([facility]) Lancets - Lancets - 12/07/2019 12:00:00 AM EDT act mukesh Lancets - eCW1 ([facility]) Glucometer UNK 12/07/2019 12:00:00 AM EDT active Glucometer eCW1 ([facility]) Lancets - Lancets - 12/07/2019 12:00:00 AM EDT act mukesh Lancets - eCW1 ([facility]) Glucometer UNK 12/07/2019 12:00:00 AM EDT active Glucometer eCW1 ([facility]) Lancets - Lancets - 12/07/2019 12:00:00 AM EDT act mukesh Lancets - eCW1 ([facility]) Glucometer UNK 12/07/2019 12:00:00 AM EDT active Glucometer eCW1 ([facility]) Glucometer UNK 12/07/2019 12:00:00 AM EDT active Glucometer eCW1 ([facility]) Glucometer UNK 12/07/2019 12:00:00 AM EDT active Glucometer eCW1 ([facility]) Glucometer UNK 12/07/2019 12:00:00 AM EDT active Glucometer eCW1 ([facility]) Lancets - Lancets - 12/07/2019 12:00:00 AM EDT act mukesh Lancets - eCW1 ([facility]) Lancets - Lancets - 12/07/2019 12:00:00 AM EDT act mukesh Lancets - eCW1 ([facility]) Lancets - Lancets - 12/07/2019 12:00:00 AM EDT act mukesh Lancets - eCW1 ([facility]) Lancets - Lancets - 12/07/2019 12:00:00 AM EDT act mukesh Lancets - eCW1 ([facility]) Lancets - Lancets - 12/07/2019 12:00:00 AM EDT act mukesh Lancets - eCW1 ([facility]) Glucometer UNK 12/07/2019 12:00:00 AM EDT active Glucometer eCW1 ([facility]) Lancets - Lancets - 12/07/2019 12:00:00 AM EDT act mukesh Lancets - eCW1 ([facility]) Glucometer UNK 12/07/2019 12:00:00 AM EDT active Glucometer eCW1 ([facility]) Lancets - Lancets - 12/07/2019 12:00:00 AM EDT act mukesh Lancets - eCW1 ([facility]) Glucometer UNK 12/07/2019 12:00:00 AM EDT active Glucometer eCW1 ([facility]) Glucometer UNK 12/07/2019 12:00:00 AM EDT active Glucometer eCW1 ([facility]) Lancets - Lancets - 12/07/2019 12:00:00 AM EDT act mukesh Lancets - eCW1 ([facility]) Lancets - Lancets - 12/07/2019 12:00:00 AM EDT act mukesh Lancets - eCW1 ([facility]) Lancets - Lancets - 12/07/2019 12:00:00 AM EDT act mukesh Lancets - eCW1 ([facility]) Lancets - Lancets - 12/07/2019 12:00:00 AM EDT act mukesh Lancets - eCW1 ([facility]) Glucometer UNK 12/07/2019 12:00:00 AM EDT active Glucometer eCW1 ([facility]) Lancets - Lancets - 12/07/2019 12:00:00 AM EDT act mukesh Lancets - eCW1 ([facility]) Glucometer UNK 12/07/2019 12:00:00 AM EDT active Glucometer eCW1 ([facility]) Glucometer UNK 12/07/2019 12:00:00 AM EDT active Glucometer eCW1 ([facility]) Glucometer UNK 12/07/2019 12:00:00 AM EDT active Glucometer eCW1 ([facility]) Lancets - Lancets - 12/07/2019 12:00:00 AM EDT act mukesh Lancets - eCW1 ([facility]) Glucometer UNK 12/07/2019 12:00:00 AM EDT active Glucometer eCW1 ([facility]) Lancets - Lancets - 12/07/2019 12:00:00 AM EDT act mukesh Lancets - eCW1 ([facility]) Glucometer UNK 12/07/2019 12:00:00 AM EDT active Glucometer eCW1 ([facility]) Lancets - Lancets - 12/07/2019 12:00:00 AM EDT act mukesh Lancets - eCW1 ([facility]) Lancets - Lancets - 12/07/2019 12:00:00 AM EDT act mukesh Lancets - eCW1 ([facility]) Glucometer UNK 12/07/2019 12:00:00 AM EDT active Glucometer eCW1 ([facility]) Glucometer UNK 12/07/2019 12:00:00 AM EDT active Glucometer eCW1 ([facility]) Lancets - Lancets - 12/07/2019 12:00:00 AM EDT act mukesh Lancets - eCW1 ([facility]) Lancets - Lancets - 12/07/2019 12:00:00 AM EDT act mukesh Lancets - eCW1 ([facility]) Lancets - Lancets - 12/07/2019 12:00:00 AM EDT act mukesh Lancets - eCW1 ([facility]) Lancets - Lancets - 12/07/2019 12:00:00 AM EDT act mukesh Lancets - eCW1 ([facility]) Glucometer UNK 12/07/2019 12:00:00 AM EDT active Glucometer eCW1 ([facility]) Lancets - Lancets - 12/07/2019 12:00:00 AM EDT act mukesh Lancets - eCW1 ([facility]) Lancets - Lancets - 12/07/2019 12:00:00 AM EDT act mukesh Lancets - eCW1 ([facility]) Lancets - Lancets - 12/07/2019 12:00:00 AM EDT act mukesh Lancets - eCW1 ([facility]) Glucometer UNK 12/07/2019 12:00:00 AM EDT active Glucometer eCW1 ([facility]) Lancets - Lancets - 12/07/2019 12:00:00 AM EDT act mukesh Lancets - eCW1 ([facility]) Lancets - Lancets - 12/07/2019 12:00:00 AM EDT act mukesh Lancets - eCW1 ([facility]) Lancets - Lancets - 12/07/2019 12:00:00 AM EDT act mukesh Lancets - eCW1 ([facility]) Lancets - Lancets - 12/07/2019 12:00:00 AM EDT act mukesh Lancets - eCW1 ([facility]) Lancets - Lancets - 12/07/2019 12:00:00 AM EDT act mukesh Lancets - eCW1 ([facility]) Lancets - Lancets - 12/07/2019 12:00:00 AM EDT act mukesh Lancets - eCW1 ([facility]) Glucometer UNK 12/07/2019 12:00:00 AM EDT active Glucometer eCW1 ([facility]) Lancets - Lancets - 12/07/2019 12:00:00 AM EDT act mukesh Lancets - eCW1 ([facility]) Glucometer UNK 12/07/2019 12:00:00 AM EDT active Glucometer eCW1 ([facility]) Glucometer UNK 12/07/2019 12:00:00 AM EDT active Glucometer eCW1 ([facility]) Glucometer UNK 12/07/2019 12:00:00 AM EDT active Glucometer eCW1 ([facility]) Glucometer UNK 12/07/2019 12:00:00 AM EDT active Glucometer eCW1 ([facility]) Glucometer UNK 12/07/2019 12:00:00 AM EDT active Glucometer eCW1 ([facility]) Glucometer UNK 12/07/2019 12:00:00 AM EDT active Glucometer eCW1 ([facility]) Glucometer UNK 12/07/2019 12:00:00 AM EDT active Glucometer eCW1 ([facility]) Lancets - Lancets - 12/07/2019 12:00:00 AM EDT act mukesh Lancets - eCW1 ([facility]) Lancets - Lancets - 12/07/2019 12:00:00 AM EDT act mukesh Lancets - eCW1 ([facility]) Glucometer UNK 12/07/2019 12:00:00 AM EDT active Glucometer eCW1 ([facility]) Glucometer UNK 12/07/2019 12:00:00 AM EDT active Glucometer eCW1 ([facility]) Glucometer UNK 12/07/2019 12:00:00 AM EDT active Glucometer eCW1 ([facility]) Glucometer UNK 12/07/2019 12:00:00 AM EDT active Glucometer eCW1 ([facility]) Lancets - Lancets - 12/07/2019 12:00:00 AM EDT act mukesh Lancets - eCW1 ([facility]) Glucometer UNK 12/07/2019 12:00:00 AM EDT active Glucometer eCW1 ([facility]) Lancets - Lancets - 12/07/2019 12:00:00 AM EDT act mukesh Lancets - eCW1 ([facility]) Glucometer UNK 12/07/2019 12:00:00 AM EDT active Glucometer eCW1 ([facility]) Glucometer UNK 12/07/2019 12:00:00 AM EDT active Glucometer eCW1 ([facility]) Lancets - Lancets - 12/07/2019 12:00:00 AM EDT act mukesh Lancets - eCW1 ([facility]) Glucometer UNK 12/07/2019 12:00:00 AM EDT active Glucometer eCW1 ([facility]) Glucometer UNK 12/07/2019 12:00:00 AM EDT active Glucometer eCW1 ([facility]) Glucometer UNK 12/07/2019 12:00:00 AM EDT active Glucometer eCW1 ([facility]) Lancets - Lancets - 12/07/2019 12:00:00 AM EDT act mukesh Lancets - eCW1 ([facility]) Glucometer UNK 12/07/2019 12:00:00 AM EDT active Glucometer eCW1 ([facility]) Glucometer UNK 12/07/2019 12:00:00 AM EDT active Glucometer eCW1 ([facility]) Glucometer UNK 12/07/2019 12:00:00 AM EDT active Glucometer eCW1 ([facility]) Glucometer UNK 12/07/2019 12:00:00 AM EDT active Glucometer eCW1 ([facility]) Lancets - Lancets - 12/07/2019 12:00:00 AM EDT act mukesh Lancets - eCW1 ([facility]) Lancets - Lancets - 12/07/2019 12:00:00 AM EDT act mukesh Lancets - eCW1 ([facility]) Lancets - Lancets - 12/07/2019 12:00:00 AM EDT act mukesh Lancets - eCW1 ([facility]) Lancets - Lancets - 12/07/2019 12:00:00 AM EDT act mukesh Lancets - eCW1 ([facility]) Lancets - Lancets - 12/07/2019 12:00:00 AM EDT act mukesh Lancets - eCW1 ([facility]) Lancets - Lancets - 12/07/2019 12:00:00 AM EDT act mukesh Lancets - eCW1 ([facility]) Glucometer UNK 12/07/2019 12:00:00 AM EDT active Glucometer eCW1 ([facility]) Lancets - Lancets - 12/07/2019 12:00:00 AM EDT act mukesh Lancets - eCW1 ([facility]) Lancets - Lancets - 12/07/2019 12:00:00 AM EDT act mukesh Lancets - eCW1 ([facility]) Glucometer UNK 12/07/2019 12:00:00 AM EDT active Glucometer eCW1 ([facility]) Glucometer UNK 12/07/2019 12:00:00 AM EDT active Glucometer eCW1 ([facility]) Lancets - Lancets - 12/07/2019 12:00:00 AM EDT act mukesh Lancets - eCW1 ([facility]) Lancets - Lancets - 12/07/2019 12:00:00 AM EDT act mukesh Lancets - eCW1 ([facility]) Lancets - Lancets - 12/07/2019 12:00:00 AM EDT act mukesh Lancets - eCW1 ([facility]) Lancets - Lancets - 12/07/2019 12:00:00 AM EDT act mukesh Lancets - eCW1 ([facility]) Lancets - Lancets - 12/07/2019 12:00:00 AM EDT act mukesh Lancets - eCW1 ([facility]) Glucometer UNK 12/07/2019 12:00:00 AM EDT active Glucometer eCW1 ([facility]) Glucometer UNK 12/07/2019 12:00:00 AM EDT active Glucometer eCW1 ([facility]) Glucometer UNK 12/07/2019 12:00:00 AM EDT active Glucometer eCW1 ([facility]) Lancets - Lancets - 12/07/2019 12:00:00 AM EDT act mukesh Lancets - eCW1 ([facility]) Lancets - Lancets - 12/07/2019 12:00:00 AM EDT act mukesh Lancets - eCW1 ([facility]) Glucometer UNK 12/07/2019 12:00:00 AM EDT active Glucometer eCW1 ([facility]) Lancets - Lancets - 12/07/2019 12:00:00 AM EDT act mukesh Lancets - eCW1 ([facility]) Lancets - Lancets - 12/07/2019 12:00:00 AM EDT act mukesh Lancets - eCW1 ([facility]) Glucometer UNK 12/07/2019 12:00:00 AM EDT active Glucometer eCW1 ([facility]) Lancets - Lancets - 12/07/2019 12:00:00 AM EDT act mukesh Lancets - eCW1 ([facility]) Glucometer UNK 12/07/2019 12:00:00 AM EDT active Glucometer eCW1 ([facility]) Lancets - Lancets - 12/07/2019 12:00:00 AM EDT act mukesh Lancets - eCW1 ([facility]) Glucometer UNK 12/07/2019 12:00:00 AM EDT active Glucometer eCW1 ([facility]) Lancets - Lancets - 12/07/2019 12:00:00 AM EDT act mukesh Lancets - eCW1 ([facility]) Glucometer UNK 12/07/2019 12:00:00 AM EDT active Glucometer eCW1 ([facility]) Glucometer UNK 12/07/2019 12:00:00 AM EDT active Glucometer eCW1 ([facility]) Glucometer UNK 12/07/2019 12:00:00 AM EDT active Glucometer eCW1 ([facility]) Glucometer UNK 12/07/2019 12:00:00 AM EDT active Glucometer eCW1 ([facility]) Glucometer UNK 12/07/2019 12:00:00 AM EDT active Glucometer eCW1 ([facility]) Glucometer UNK 12/07/2019 12:00:00 AM EDT active Glucometer eCW1 ([facility]) Glucometer UNK 12/07/2019 12:00:00 AM EDT active Glucometer eCW1 ([facility]) Glucometer UNK 12/07/2019 12:00:00 AM EDT active Glucometer eCW1 ([facility]) Glucometer UNK 12/07/2019 12:00:00 AM EDT active Glucometer eCW1 ([facility]) Lancets - Lancets - 12/07/2019 12:00:00 AM EDT act mukesh Lancets - eCW1 ([facility]) Lancets - Lancets - 12/07/2019 12:00:00 AM EDT act mukesh Lancets - eCW1 ([facility]) Glucometer UNK 12/07/2019 12:00:00 AM EDT active Glucometer eCW1 ([facility]) Glucometer UNK 12/07/2019 12:00:00 AM EDT active Glucometer eCW1 ([facility]) Lancets - Lancets - 12/07/2019 12:00:00 AM EDT act mukesh Lancets - eCW1 ([facility]) Glucometer UNK 12/07/2019 12:00:00 AM EDT active Glucometer eCW1 ([facility]) Glucometer UNK 12/07/2019 12:00:00 AM EDT active Glucometer eCW1 ([facility]) Lancets - Lancets - 12/07/2019 12:00:00 AM EDT act mukesh Lancets - eCW1 ([facility]) Lancets - Lancets - 12/07/2019 12:00:00 AM EDT act mukesh Lancets - eCW1 ([facility]) Lancets - Lancets - 12/07/2019 12:00:00 AM EDT act mukesh Lancets - eCW1 ([facility]) Lancets - Lancets - 12/07/2019 12:00:00 AM EDT act mukesh Lancets - eCW1 ([facility]) Glucometer UNK 12/07/2019 12:00:00 AM EDT active Glucometer eCW1 ([facility]) Glucometer UNK 12/07/2019 12:00:00 AM EDT active Glucometer eCW1 ([facility]) Lancets - Lancets - 12/07/2019 12:00:00 AM EDT act mukesh Lancets - eCW1 ([facility]) Glucometer UNK 12/07/2019 12:00:00 AM EDT active Glucometer eCW1 ([facility]) Lancets - Lancets - 12/07/2019 12:00:00 AM EDT act mukesh Lancets - eCW1 ([facility]) Glucometer UNK 12/07/2019 12:00:00 AM EDT active Glucometer eCW1 ([facility]) Glucometer UNK 12/07/2019 12:00:00 AM EDT active Glucometer eCW1 ([facility]) Glucometer UNK 12/07/2019 12:00:00 AM EDT active Glucometer eCW1 ([facility]) Lancets - Lancets - 12/07/2019 12:00:00 AM EDT act mukesh Lancets - eCW1 ([facility]) Lancets - Lancets - 12/07/2019 12:00:00 AM EDT act mukesh Lancets - eCW1 ([facility]) Lancets - Lancets - 12/07/2019 12:00:00 AM EDT act mukesh Lancets - eCW1 ([facility]) Lancets - Lancets - 12/07/2019 12:00:00 AM EDT act mukesh Lancets - eCW1 ([facility]) Lancets - Lancets - 12/07/2019 12:00:00 AM EDT act mukesh Lancets - eCW1 ([facility]) Lancets - Lancets - 12/07/2019 12:00:00 AM EDT act mukesh Lancets - eCW1 ([facility]) Lancets - Lancets - 12/07/2019 12:00:00 AM EDT act mukesh Lancets - eCW1 ([facility]) Glucometer UNK 12/07/2019 12:00:00 AM EDT active Glucometer eCW1 ([facility]) Lancets - Lancets - 12/07/2019 12:00:00 AM EDT act mukesh Lancets - eCW1 ([facility]) Glucometer UNK 12/07/2019 12:00:00 AM EDT active Glucometer eCW1 ([facility]) Glucometer UNK 12/07/2019 12:00:00 AM EDT active Glucometer eCW1 ([facility]) Glucometer UNK 12/07/2019 12:00:00 AM EDT active Glucometer eCW1 ([facility]) Lancets - Lancets - 12/07/2019 12:00:00 AM EDT act mukesh Lancets - eCW1 ([facility]) Lancets - Lancets - 12/07/2019 12:00:00 AM EDT act mukesh Lancets - eCW1 ([facility]) Glucometer UNK 12/07/2019 12:00:00 AM EDT active Glucometer eCW1 ([facility]) Glucometer UNK 12/07/2019 12:00:00 AM EDT active Glucometer eCW1 ([facility]) Glucometer UNK 12/07/2019 12:00:00 AM EDT active Glucometer eCW1 ([facility]) Glucometer UNK 12/07/2019 12:00:00 AM EDT active Glucometer eCW1 ([facility]) Lancets - Lancets - 12/07/2019 12:00:00 AM EDT act mukesh Lancets - eCW1 ([facility]) Glucometer UNK 12/07/2019 12:00:00 AM EDT active Glucometer eCW1 ([facility]) Glucometer UNK 12/07/2019 12:00:00 AM EDT active Glucometer eCW1 ([facility]) Acetaminophen 325 MG / Hydrocodone Bri[place] trate 5 MG Oral Tablet Hydrocodone- Acetaminophen 5-325 MG Hydrocodone-Acetaminophen 5-325 MG 12/03/2019 12:00:00 AM EDT 1.0 {tablet_as_needed} active Hydrocodone-Acetaminophen 5-325 MG eCW1 ([facility]) Acetaminophen 325 MG / Hydrocodone [place] trate 5 MG Oral Tablet Hydrocodone- Acetaminophen 5-325 MG Hydrocodone-Acetaminophen 5-325 MG 12/03/2019 12:00:00 AM EDT 1.0 {tablet_as_needed} active Hydrocodone-Acetaminophen 5-325 MG eCW1 ([facility]) Acetaminophen 325 MG / Hydrocodone [place] trate 5 MG Oral Tablet Hydrocodone- Acetaminophen 5-325 MG Hydrocodone-Acetaminophen 5-325 MG 12/03/2019 12:00:00 AM EDT 1.0 {tablet_as_needed} active Hydrocodone-Acetaminophen 5-325 MG eCW1 ([facility]) Acetaminophen 325 MG / Hydrocodone [place] trate 5 MG Oral Tablet Hydrocodone- Acetaminophen 5-325 MG Hydrocodone-Acetaminophen 5-325 MG 12/03/2019 12:00:00 AM EDT 1.0 {tablet_as_needed} active Hydrocodone-Acetaminophen 5-325 MG eCW1 ([facility]) Acetaminophen 325 MG / Hydrocodone [place] trate 5 MG Oral Tablet Hydrocodone- Acetaminophen 5-325 MG Hydrocodone-Acetaminophen 5-325 MG 12/03/2019 12:00:00 AM EDT 1.0 {tablet_as_needed} active Hydrocodone-Acetaminophen 5-325 MG eCW1 ([facility]) Acetaminophen 325 MG / Hydrocodone [place] trate 5 MG Oral Tablet Hydrocodone- Acetaminophen 5-325 MG Hydrocodone-Acetaminophen 5-325 MG 12/03/2019 12:00:00 AM EDT 1.0 {tablet_as_needed} active Hydrocodone-Acetaminophen 5-325 MG eCW1 ([facility]) Acetaminophen 325 MG / Hydrocodone [place] trate 5 MG Oral Tablet Hydrocodone- Acetaminophen 5-325 MG Hydrocodone-Acetaminophen 5-325 MG 12/03/2019 12:00:00 AM EDT 1.0 {tablet_as_needed} active Hydrocodone-Acetaminophen 5-325 MG eCW1 ([facility]) Acetaminophen 325 MG / Hydrocodone [place] trate 5 MG Oral Tablet Hydrocodone- Acetaminophen 5-325 MG Hydrocodone-Acetaminophen 5-325 MG 12/03/2019 12:00:00 AM EDT 1.0 {tablet_as_needed} active Hydrocodone-Acetaminophen 5-325 MG eCW1 ([facility]) Acetaminophen 325 MG / Hydrocodone Brielle trate 5 MG Oral Tablet Hydrocodone- Acetaminophen 5-325 MG Hydrocodone-Acetaminophen 5-325 MG 12/03/2019 12:00:00 AM EDT 1.0 {tablet_as_needed} active Hydrocodone-Acetaminophen 5-325 MG eCW1 ([facility]) Acetaminophen 325 MG / Hydrocodone Brielle trate 5 MG Oral Tablet Hydrocodone- Acetaminophen 5-325 MG Hydrocodone-Acetaminophen 5-325 MG 12/03/2019 12:00:00 AM EDT 1.0 {tablet_as_needed} active Hydrocodone-Acetaminophen 5-325 MG eCW1 ([facility]) Acetaminophen 325 MG / Hydrocodone Brielle trate 5 MG Oral Tablet Hydrocodone- Acetaminophen 5-325 MG Hydrocodone-Acetaminophen 5-325 MG 12/03/2019 12:00:00 AM EDT 1.0 {tablet_as_needed} active Hydrocodone-Acetaminophen 5-325 MG eCW1 ([facility]) Acetaminophen 325 MG / Hydrocodone Brielle trate 5 MG Oral Tablet Hydrocodone- Acetaminophen 5-325 MG Hydrocodone-Acetaminophen 5-325 MG 12/03/2019 12:00:00 AM EDT 1.0 {tablet_as_needed} active Hydrocodone-Acetaminophen 5-325 MG eCW1 ([facility]) Acetaminophen 325 MG / Hydrocodone Brielle trate 5 MG Oral Tablet Hydrocodone- Acetaminophen 5-325 MG Hydrocodone-Acetaminophen 5-325 MG 12/03/2019 12:00:00 AM EDT 1.0 {tablet_as_needed} active Hydrocodone-Acetaminophen 5-325 MG eCW1 ([facility]) Acetaminophen 325 MG / Hydrocodone Brielle trate 5 MG Oral Tablet Hydrocodone- Acetaminophen 5-325 MG Hydrocodone-Acetaminophen 5-325 MG 12/03/2019 12:00:00 AM EDT 1.0 {tablet_as_needed} active Hydrocodone-Acetaminophen 5-325 MG eCW1 ([facility]) Acetaminophen 325 MG / Hydrocodone Brielle trate 5 MG Oral Tablet Hydrocodone- Acetaminophen 5-325 MG Hydrocodone-Acetaminophen 5-325 MG 12/03/2019 12:00:00 AM EDT 1.0 {tablet_as_needed} active Hydrocodone-Acetaminophen 5-325 MG eCW1 ([facility]) Acetaminophen 325 MG / Hydrocodone Brielle trate 5 MG Oral Tablet Hydrocodone- Acetaminophen 5-325 MG Hydrocodone-Acetaminophen 5-325 MG 12/03/2019 12:00:00 AM EDT 1.0 {tablet_as_needed} active Hydrocodone-Acetaminophen 5-325 MG eCW1 ([facility]) Acetaminophen 325 MG / Hydrocodone Brielle trate 5 MG Oral Tablet Hydrocodone- Acetaminophen 5-325 MG Hydrocodone-Acetaminophen 5-325 MG 12/03/2019 12:00:00 AM EDT 1.0 {tablet_as_needed} active Hydrocodone-Acetaminophen 5-325 MG eCW1 ([facility]) Acetaminophen 325 MG / Hydrocodone Brielle trate 5 MG Oral Tablet Hydrocodone- Acetaminophen 5-325 MG Hydrocodone-Acetaminophen 5-325 MG 12/03/2019 12:00:00 AM EDT 1.0 {tablet_as_needed} active Hydrocodone-Acetaminophen 5-325 MG eCW1 ([facility]) Acetaminophen 325 MG / Hydrocodone Brielle trate 5 MG Oral Tablet Hydrocodone- Acetaminophen 5-325 MG Hydrocodone-Acetaminophen 5-325 MG 12/03/2019 12:00:00 AM EDT 1.0 {tablet_as_needed} active Hydrocodone-Acetaminophen 5-325 MG eCW1 ([facility]) Acetaminophen 325 MG / Hydrocodone Brielle trate 5 MG Oral Tablet Hydrocodone- Acetaminophen 5-325 MG Hydrocodone-Acetaminophen 5-325 MG 12/03/2019 12:00:00 AM EDT 1.0 {tablet_as_needed} active Hydrocodone-Acetaminophen 5-325 MG eCW1 ([facility]) Acetaminophen 325 MG / Hydrocodone Brielle trate 5 MG Oral Tablet Hydrocodone- Acetaminophen 5-325 MG Hydrocodone-Acetaminophen 5-325 MG 12/03/2019 12:00:00 AM EDT 1.0 {tablet_as_needed} active Hydrocodone-Acetaminophen 5-325 MG eCW1 ([facility]) Acetaminophen 325 MG / Hydrocodone Brielle trate 5 MG Oral Tablet Hydrocodone- Acetaminophen 5-325 MG Hydrocodone-Acetaminophen 5-325 MG 12/03/2019 12:00:00 AM EDT 1.0 {tablet_as_needed} active Hydrocodone-Acetaminophen 5-325 MG eCW1 ([facility]) Acetaminophen 325 MG / Hydrocodone Brielle trate 5 MG Oral Tablet Hydrocodone- Acetaminophen 5-325 MG Hydrocodone-Acetaminophen 5-325 MG 12/03/2019 12:00:00 AM EDT 1.0 {tablet_as_needed} active Hydrocodone-Acetaminophen 5-325 MG eCW1 ([facility]) Acetaminophen 325 MG / Hydrocodone Brielle trate 5 MG Oral Tablet Hydrocodone- Acetaminophen 5-325 MG Hydrocodone-Acetaminophen 5-325 MG 12/03/2019 12:00:00 AM EDT 1.0 {tablet_as_needed} active Hydrocodone-Acetaminophen 5-325 MG eCW1 ([facility]) Acetaminophen 325 MG / Hydrocodone Brielle trate 5 MG Oral Tablet Hydrocodone- Acetaminophen 5-325 MG Hydrocodone-Acetaminophen 5-325 MG 12/03/2019 12:00:00 AM EDT 1.0 {tablet_as_needed} active Hydrocodone-Acetaminophen 5-325 MG eCW1 ([facility]) Acetaminophen 325 MG / Hydrocodone Brielle trate 5 MG Oral Tablet Hydrocodone- Acetaminophen 5-325 MG Hydrocodone-Acetaminophen 5-325 MG 12/03/2019 12:00:00 AM EDT 1.0 {tablet_as_needed} active Hydrocodone-Acetaminophen 5-325 MG eCW1 ([facility]) Acetaminophen 325 MG / Hydrocodone Brielle trate 5 MG Oral Tablet Hydrocodone- Acetaminophen 5-325 MG Hydrocodone-Acetaminophen 5-325 MG 12/03/2019 12:00:00 AM EDT 1.0 {tablet_as_needed} active Hydrocodone-Acetaminophen 5-325 MG eCW1 ([facility]) gabapentin 100 MG Oral Capsule gabapentin (NEURONTIN) 100 MG capsule gabapentin (NEURONTIN) 100 MG capsule 11/19/2019 12:00:00 AM EDT 100 mg Oral active Take 100 mg by mouth 2 (two) times a day [facility] potassium chloride SA (K-DUR,KLOR-CON) 10 MEQ tablet 41668-3 11-2511/19/2019 12:00:00 AM EDT 10 meq Oral aborted Take 10 mEq by mouth 2 (two) times a day [facility] torsemide 20 MG Oral Tablet torsemide (DEMADEX) 20 MG tablet torsemide (DEMADEX) 20 MG tablet 11/19/2019 12:00:00 AM EDT 20 mg abor alfred 20 mg 3 (three) times a day [facility] dapagliflozin 5 MG Oral Tablet [Farxiga] FARXIGA 5 MG TABS F ARXIGA 5 MG TABS 11/10/2019 12:00:00 AM EDT aborted [facility] 24 HR Metformin hydrochloride 500 MG Ext ended Release Oral Tablet metFORMIN (GLUCOPHATE-XR) 500 MG 24 hr tablet metFORMIN (GLUCOPHATE-XR) 500 MG 24 hr tablet 11/02/2019 12:00:00 AM EDT aborted [facility] carvedilol 3.125 MG Oral Tablet carvedilol (COREG) 3.1 25 MG tablet carvedilol (COREG) 3.125 MG tablet 09/23/2019 12:00:00 AM EDT 3.125 mg Oral aborted Coronary artery disease due to calcified coronary lesion Take 1 tablet (3.125 mg total) by mouth 2 (two) times a day [facility] Coronary artery disease due to calcified coronary lesion Nystatin 017173 UNT/ML Oral Suspension n ystatin (MYCOSTATIN) 572109 UNIT/ML suspension nystatin (MYCOSTATIN) 324154 UNIT/ML suspension 2019 12:00:00 AM EDT aborted [facility] Losartan Potassium 100 MG Oral Tablet losartan (COZAAR ) 100 MG tablet losartan (COZAAR) 100 MG tablet 12/10/2018 12:00:00 AM EDT 0.75 {tbl} Oral aborted Take 0.75 tablets by mouth once daily [facility] dapagliflozin 10 MG Oral Tablet [Farxiga] FARXIGA 10 MG TABS FARXIGA 10 MG TABS 10/31/2018 12:00:00 AM EDT 0.5 {tbl} Oral aborted Take 0.5 tablets by mouth once daily [facility] Furosemide 20 MG Oral Tablet furosemide (LASIX) 20 MG tablet furosemide (LASIX) 20 MG tablet 06/04/2018 12:00:00 AM EDT 1 {tbl} Oral abor alfred Take 1 tablet by mouth once daily [facility] 3 ML Insulin Glargine 100 UNT/ML Pen Inj jennifer Insulin Glargine (LANTUS SOLOSTAR) 100 UNIT/ML SOPN Insulin Glargine (LANTUS SOLOSTAR) 100 UNIT/ML SOPN 12:00:00 AM EDT 25 U Subcutaneous aborted Inject 25 Units under the skin daily [facility] [place]-3 Acid Ethyl Esters (PRISON) 1000 MG Oral Capsule omega-3 acid ethyl esters (LOVAZA) 1 g capsule omega-3 acid ethyl esters (LOVAZA) 1 g capsule 011 12:00:00 AM EDT Oral aborted Take by mouth [facility] Insurance Providers Payer name Policy type / Coverage type Policy ID Covered green party ID Covered green party's relationship to kathleen Policy Kathleen Plan Information [employer] [place] [id number] 2 [id number] [employer] [place] [id number] [employer] [place] [id number] [facility] Medigap Part B [id number] Self MEDICAID [id number] SP [id number] Medicaid ID Medigap Part B [id number] Self [facility] U [id number] Self [id number] [facility] [id number] SP [id number] [facility] [id number] SP [id number] MEDICARE BLUE PPO 306 [id number] SP [id number] MEDICARE COMPLETE [id number] SP [id number] Blue Shield [facility] Advantage Medigap Part B [id number] Self MEDICARE COMPLETE [id number] SP [id number] MEDICARE COMPLETE [id number] SP [id number] [facility] [id number] SP [id number] MEDICARE [id number] [place] [id number] EXCELLUS MEDICARE BLUE PPO G [id number] Self [id number] [facility] ([facility]) Commercial [id number] Self Medicare S [id number] S [id number] A Managed Care - Community Plan [facility] P [id number] S [id number] United[employer] Secure Horizons P [id number] S [id number] Medicare S [id number] S [id number] A [employer] Horiz[employer] P [id number] S [id number] MEDICARE COMPLETE [id number] SP [id number] MEDICARE COMPLETE [id number] SP [id number] Today's Options Commercial [id number] .[id number] Self [id number] TODAYS OPTIONS [id number] SP [id number] [employer] Commercial [id number] .[id number] 0701.0 Self [id number] [facility] Options Medigap Part B [id number] Self 3 [id number] [employer] Commercial [id number] .[id number] 0701.0 Self [id number] [employer] Commercial [id number] .[id number] 0701.0 Self [id number] [facility] Options Medigap Part B [id number] .[id number] Self 3 [id number] [employer] Commercial [id number] 2.16.840.1.414895.3.227.99.991.9 0701.0 Self [id number] [facility] Options [facility] Part B [id number] Self 3 [id number] [employer] Commercial [id number] 2.16.840.1.826196.3.227.99.991.9 0701.0 Self [id number] [employer] Commercial [id number]9.991.9 0701.0 Self [id number] [employer] Commercial [id number]9.991.9 0701.0 Self [id number] [facility] [id number] Self [id number] [facility] [id number] [place] [id number] 2 [employer]ARE [id number] SP [id number] [employer] Commercial [id number] Self [id number] [employer] Commercial [id number] Self [id number] [employer] MEDICARE [id number] [place] [id number] HUMANA MEDICARE [id number] [place] [id number] HUMANA MEDICARE [id number] [place] [id number] HUMANA MEDICARE [id number] xxxxxxxxx [phone] HUMANA MEDICARE [id number] [place] [id number] AETNA MEDICARE Medicare [id number] AETNA MEDICARE [id number] [place] 10 [id number] ANSI-Not a Secondary Insurance [id number] ANSI-Commercial [id number]-[id number]-[id number] ANSI-Commercial 2538ohr0-paqn-14jm-[id number] 4341lfo7-krvd-09pj-[id number] [employer] Gold/Medicare Commercial [id number] Self [id number] ANSI-Commercial [id number] [id number] ANSI-Medicare Part B [id number]-52w6-vef7-[id number] ANSI-Not a Secondary Insurance [id number] ANSI-Health Maintenance Organization (HM O) [id number] 31b080sw-3s39-14ay-022x-8681f975c80n ANSI-Medicare Part B [id number] [id number]-x19x-738l-p06s-[id number] ANSI-Commercial [id number]-[id number] 304971k8-2287-1469-y5e2-5zlcc39e5812 ANSI-Medicare Part B [id number] 9ly8updf-gk1n-4d18-72r3-0bg5o56673o7 ANSI-Medicare Part B [id number] [id number]-0h8a-ua61-3bv3n2851q52 ANSI-Health Maintenance Organization ( O) [id number]-9416-i269-6st15rke2c03 hy01v4bx-198j-2784-a127-9ln80kie8t24 ANSI-Commercial 438gy971-975z-5n89-7669-917p0k669057 043hz231-541t-[id number] [facility]-Health Maintenance Organization ( O) 44klx5g1-38q2-4p28-96x1-w2z74x5od984 54rgt1e0-34h0-8u38-96r6-f2y77u7rg630 ANSI-Medicare Part B [id number] 8a20y076-a330-2860-up55-da5uskd9c1u0 ANSI-Medicare Part B [id number]-el6w-8xah-9038-8gt712913198 ANSI-Medicare Part B [id number]-61o4-[id number] 025nwl63-286g-90m1-n186-5f32161p4w2p ANSI-Commercial 579ug66l-2798-9416-05ni-8604211h4984 499kt34y-6098-4880-42zr-7388324h7489 [facility]-Health Maintenance Organization ( O) [id number]-epm48wu79739 [id number]-n4dn-ymi58eg07374 ANSI-Medicare Part B [id number] [id number]-x30a-535dw2y9be7b ANSI-Commercial 59y2746x-dzbu-4978-h54c-89103oa748x9 03v1231u-evkr-5575-u60l-41745fx380t7 ANSI-Medicare Part B [id number] 1vp31e51-827g-318d-3ye9-994t86661im7 ANSI-Health Maintenance Organization ( O) 38172j68-e408-4epk-b35d-2v08bfri7551 84492d25-t984-6qis-e59z-1c06ywmy5596 ANSI-Medicare Part B 11qvrck7-r2w6-94u4-88rs-bpj707n9h8k9 23jwvmi0-b9a8-04h7-39en-gox666b8i4s2 ANSI-Commercial vk3x3n4x-mw00-6909-97ru-cfk3v7168491 mz3z4r5d-uh33-3848-80qd-ujz7n1994791 ANSI-Medicare Part B [id number] l445b5s2-5784-1el0-97oj-0bq2n7088da7 [facility]-Health Maintenance Organization ( O) [id number]-2v39-[id number] 048417i3-n47i-5d88-z4r4-645i76345o33 ANSI-Medicare Part B [id number]-[id number] h65x65hw-9j93-3253-50yx-4moa9lhlm483 ANSI-Medicare Part B [id number]-56df-03w7-5asw29h4bech 05v6210h-7f5h-39pa-76t4-4cpv20e8diyj [facility]-Health Maintenance Organization ( O) [id number]-8t60-6y26-830l657959y8 1u6h1730-0x6u-5e25-2h71-342o159376h2 ANSI-Medicare Part B [id number] [id number]-2415-37jd-2ii7-3obu18a10303 ANSI-Commercial 9qt55x51-emwh-7w62-9922-34qi1575gdzt 5ao09e41-oqgv-2i42-3910-13wz7523oksb ANSI-Health Maintenance Organization ( O) [id number]-80g4-934r-i016-1h2b67knis14 hq96894z-60w5-689u-m664-5r7c66pjyx35 ANSI-Medicare Part B [id number]-[id number] 11e1457l-j2hb-7zy9-5r37-2sb087y57y34 ANSI-Medicare Part B [id number]-3389-864c02h0y533 27lrt363-56z7-0a1f-1045-909f88g8g704 ANSI-Commercial 54f301l6-20w8-5f3t-h324-1u223959j644 92m136s0-28f8-9u6q-p271-8r442099y288 ANSI-Medicare Part B [id number]-338o-1s56-g2b0r5b4827j l95g708z-41sn-420g-6v76-f6d4z4y0227p ANSI-Medicare Part B 53buo0yh-7805-8961-i5t2-qlm99o0uu8o9 27hir5hd-3113-4148-z2i8-mhs33m1se7f7 ANSI-Commercial ay571ivs-33q2-82u0-re54-gn3t9vl34f22 lg059mfw-94l6-13b9-ii24-et4g3bn40k73 ANSI-Health Maintenance Organization ( O) 154493yi-1r3w-51z4-[id number] [id number]-4v5g-89z9-ao89-73139j638822 [employer] Commercial [id number]9.8646.65636.0 Self [id number] TODAYS OPTIONS [id number] ANSI-Medicare Part B [id number]-[id number] 13368ma9-m891-3q2a-i071-7h4178h69155 ANSI-Commercial o5f4g047-mbfb-5767-k7jk-kf4t4br8l803 t3h8x298-xizd-0538-g7qd-nq4l7wi8p066 ANSI-Medicare Part B 83oy4ff7-7hq3-5akn-h6su-mxle0db1p472 16if1hi8-1qh9-3wnp-t5uw-ghin7nr3q011 ANSI-Health Maintenance Organization ( O) 55787q15-8c79-0z97-5f8d-0586dwpwn560 06668h25-7q75-2w64-3h6l-3801utwde028 ANSI-Medicare Part B [id number] 763t7941-0h85-9230-16mj-jw5s0240971y ANSI-Health Maintenance Organization ( O) [id number]-u348-839g-r808-6ib7124gjaff 5m5v6037-p326-322c-g633-4yy3139wutck ANSI-Commercial 1w398y28-3962-76eo-41v2-pl85srvy9g96 6f143m92-5704-51mi-73a2-qs40ojyu4m62 ANSI-Medicare Part B [id number]-30o153kvo0b4 n2ky2150-83m7-2a18-521f-14f222fpf4p6 ANSI-Medicare Part B [id number]-h27i-2owkj7073muk 95038i33-31x5-2qai-s31v-0vuco1270jto [facility] ( O) 61u08v0k-558z-52o8-3781-7n8z3328kx45 37k40q6u-695i-54b4-6329-9x6v7760tf30 ANSI-Medicare Part B 124y676g-28i7-0yo0-vdq3-909q331e094t 308a765g-16r7-1uf2-dec3-138m406x614c ANSI-Commercial a6879y91-214w-8q1v-ar00-i9x51068ncd7 e7051c40-595p-3s1a-ve86-r4c11091ren8 ANSI-Medicare Part B [id number]-z8kw-8048-821y-ow2w237x2bgg 369l4ksb-m8kn-7454-478j-ff5v715x3hkk [facility] ( O) lg0k0pq0-hw68-1t47-i8s8-u3321w95c1c2 ro9c3fd8-iv75-2f83-i8v3-k7272z93b3h7 [facility]-Medicare Part B 2zs7llg3-tq78-5u03-y99p-lh5c0f97lnnp 0wi9ect2-zm63-8e94-i91d-nd5d5p42nwhj ANSI-Commercial 49mr1z7b-9v8s-1370-yb04-443a8l84c443 06ot7j5c-8q3g-9090-ki59-178d5z55y208 ANSI-Medicare Part B [id number]-2048-7qy0-268x-05z77gb7l473 31z6323d-5161-0me7-465z-19z02ef1b375 ANSI-Commercial 10d4j81p-r78v-8wut-82e9-6742l7335pqc 89u4r80o-l62l-2wfm-92k5-7350a5081uqu ANSI-Medicare Part B [id number]-p721-96wr-ko53-8lx05w8r0641 10387x37-d745-03vp-ck96-1mf17r0h0288 [facility]-Health Maintenance Organization ( O) cx6bdq32-99ro-9s67-c8aa-y5ec8y47f5ja xp1ctc19-57rl-8n60-m7fo-z3ic5h62k0lu ANSI-Commercial 0bu00uj1-0857-59b9-3m26-r2g5x9y53k9f 9ry31vr5-5519-29s3-4z95-o8u9g8s50u2f ANSI-Medicare Part B [id number]-4260-2r29-2889-ym0v9v8rrz9x m926ji9j-1054-8a11-2156-nb8c8c5kee9p [facility]-Health Maintenance Organization ( O) 66y67is4-0346-82q6-f7uu-q49g96536a78 93n61ga7-3436-93s0-z5ek-g16w18342j65 ANSI-Medicare Part B [id number] 92d093ho-3jj9-0411-282v-6b585l8kh2c1 [facility] Commercial [id number] [facility] [id number] ANSI-Medicare Part B 6a4alst7-st28-83rl-4409-t57qqs63p0l7 2k4sttf2-su83-74al-7218-f49ruk56b0m8 [facility]-Health Maintenance Organization ( O) 50p748gd-b9g6-05ta-a27l-x6bmc41a230j 77j262pp-f9n4-58re-j50n-x2rbq09c146k ANSI-Medicare Part B [id number]-2957-86t7-7462ywo3cz9p 1yf05867-9a4w-7629-68j7-9549gdn8rx6r ANSI-Commercial 08ev0622-1604-312s-0fs7-n4922vbd6f96 30rw4040-8046-794s-1nk5-e7774deu0r07 ANSI-Medicare Part B [id number] w879f1ti-s447-4dx0-6741-428866960h0p ANSI-Medicare Part B [id number]i8q [id number]540yk56ds0t ANSI-Commercial 549du1u7-94g1-7e5u-8s10-8tb188o57o2o 968zu0j7-22k0-6w2r-4s56-6dl677v75i5o ANSI-Health Maintenance Organization ( O) 6247bl71-n6m0-6382-71e5-yy673w7p7398 3930zb11-n9t8-5716-92m1-bx336z7z2191 ANSI-Health Maintenance Organization ( O) u225m41d-7583-272y-8334-px5u55646coh u378o00p-8368-664w-5892-qj2t97979hid ANSI-Commercial c87c5725-9281-30dg-w881-553fs06u36a1 j92n5467-4266-05yu-k440-398bu85q92f1 ANSI-Medicare Part B 882q714f-r71k-920c-8po8-m3n14o8ygoc4 847a392x-q76k-243h-8kd7-l9a14s6dbto6 ANSI-Medicare Part B 991ow13j-y33m-1l52-q02y-z14862pn4pl8 222fv02y-k43u-3u36-i86n-l01233gn3yy6 [employer] [id number] Self [id number] [facility] O [id number] S [id number] [facility] ( O) [id number]-673a-o1t83865apq5 34733831-76i7-2f1v-266o-z8d74097hvd4 ANSI-Commercial c8r5175y-9t2g-5240-o3iy-1di3008u4qc8 f2z1563f-6u2q-2626-y9oj-1lo3004k5su2 ANSI-Medicare Part B r2rq456h-v894-220j-28i8-40ss06600x08 p0zy047e-k056-340h-98n7-20hs04367l78 ANSI-Medicare Part B 8l7h19le-d7b6-3w93-e37f-r5vccv99ny4m 8e7z27ob-a5r8-2x63-o84d-i3rujf32ls9q ANSI-Commercial 759y20jq-0gt6-109l-3862-73u6820ti84m 984i49yz-1ui6-399y-0287-40c5608di32v ANSI-Medicare Part B dj81151v-h9vs-973o-e392-386e83uo8h1d jr10778j-l4pp-966l-a134-901p85fw8u8o ANSI-Medicare Part B 299s3h92-428u-6wbh-5yr6-1x25ujfov3cv 014l6d67-452n-9pcc-9iv1-3g63yhsqp2fr [facility] ( O) u6z1648h-3vtg-3h18-x33g-10985r43617c l2u6221h-9okm-3g57-s58o-09034p46223a ANSI-Medicare Part B p1670526-wduc-3776-301s-0cvb64347851 n4752890-cawm-2989-838j-9xfl38284884 ANSI-Commercial 024590q7-681f-3452-bp4l-08317t3t30rs 398180j5-956v-4711-ey3f-02218x1f54bv [facility] ( O) [id number]-p9b1-bgc7o204769f 101m5545-3816-0n02-d1u4-skj0l562279k ANSI-Medicare Part B 895q882m-k075-665d-j951-bf5895c8201g 141j720v-o012-959c-u378-kc4643m7804u ANSI-Medicare Part B n19n4c18-e746-89x9-vj6j-1813367r9h7x t42i5s27-w817-40b6-pp6g-1673144i2s3h ANSI-Medicare Part B 4561ks3t-180c-5n17-5gk1-3q222907u8g4 1551ip7i-253b-2v77-2kz6-2i860017h4n5 ANSI-Commercial 60g45177-u6uq-7374-7186-jxv7670988r7 43d91214-b8vc-8011-4541-zfb2503953t5 ANSI-Medicare Part B 0n7j4lc5-d19n-96d6-6p6t-16x01j6ls1z3 1s4r8ct7-y00y-82o6-7h5p-02n31h1yc1g8 ANSI-Medicare Part B o38uqjf3-ejgl-350o-y89q-7h09321a6x5o q28ryvo1-emvh-929c-b30t-3w94257f1l8g ANSI-Commercial 98xsyw5s-65e6-64dm-p220-h1f389252911 39ybag5r-08p7-96nx-y361-f6a772732908 ANSI-Medicare Part B 8jb17uow-4xt5-06yt-o7g2-37jqaw44ru43 1sl90iig-7qq5-08cx-c1f6-54ieew73db14 ANSI-Medicare Part B t22m0605-a469-7z5t-uv49-n9531141sezu g52a1634-r982-4e1p-be01-n2083456suar ANSI-Commercial wti6l7kv-925t-1y95-7o06-m71k7144uou4 nzg5s4cg-215r-3z59-4y43-h02b7719zbk0 ANSI-Commercial 8gvl7997-w78j-3800-769i-biz8ls2v5537 4imc5885-i13u-5698-364c-pxd1lt6w6292 ANSI-Medicare Part B 9d71ckxn-4028-72zr-8gv5-f93c45zv420e 7o91moeq-9985-46wr-8ua5-b87e46ug256f ANSI-Medicare Part B 1874co7w-2k29-7z30-9d00-14208h8q78ig 4083ak7h-9s53-8e87-7b33-77874q0c96ox ANSI-Medicare Part B 9rjd3tp9-2e4a-5992-43x4-ns2v3o1j8849 5qfo7sw3-5m2s-5388-45a3-ld9f7v7o5289 ANSI-Commercial b7f40i07-6u0y-49p7-3460-3k0g8219936x a2f71a12-6q0i-47i8-5288-7v8g5297695j ANSI-Medicare Part B 0i8k4pf8-0358-37k0-efk8-372t259s1w8c 1a5s2lr5-8107-84g3-tew3-296p035n3m9e [employer] O [id number] S [id number] ANSI-Medicare Part B 1453bb7r-2833-464x-cd58-4111r9990a69 3135su4m-1916-072a-dc80-0968e9689y22 ANSI-Medicare Part B 5l3u3262-7663-5495-7oz3-261l08785606 2k4t7520-9134-5893-6ad1-117n34187790 ANSI-Commercial 7gacr5h8-9xtj-0r9g-q038-p01i99j1l3mx 4nkef9z5-6bxj-7n0i-g192-t61t89j8i4tf ANSI-Medicare Part B 46a8mn3x-9yck-5200-wqs0-dmnix96a33co 39c0he4d-6dud-8508-kgd7-zsimz26z61lf ANSI-Commercial xb383788-3z7m-068k-420p-m5l3258o24y2 lq676292-3k0h-960a-961a-e9l5412h35r7 ANSI-Medicare Part B 1c43up1c-cog7-914d-z68h-2fe4u2if735r 4a42dt1v-cnf8-592b-l11z-9pt7a6sl605l ANSI-Medicare Part B 95h07f38-5x2c-552j-e506-i714w26g1714 95x75n59-2i6a-009x-x261-r089x59d9131 ANSI-Commercial 1533eg39-0mj9-1k3w-910f-39q451z96mm1 5850vl56-3dr6-3w9r-215e-13v827b95fq9 ANSI-Medicare Part B k1d34c1w-h3zg-9q50-yz87-767qf0n03op8 x8j46u7r-u6bz-8h81-ys07-523tu2u50un9 ANSI-Commercial 3888rsk9-j7re-8fg7-w5y5-zfmk35r88433 7552xye7-a6fm-6uq3-u9t2-dfjp42v88157 ANSI-Medicare Part B i2a027t1-76r8-2506-6467-7902753110z8 x7f488e0-38z8-2612-5830-2714867651p5 ANSI-Medicare Part B 36x9o621-27cf-370g-8gc1-u772283eof5m 37c9a673-61yl-012c-9rd4-w166046whf2v ANSI-Medicare Part B 733t97yb-1yts-04e3-306h-18682a038ki5 860k09xv-3rin-14l4-306j-56980u466xq3 ANSI-Commercial 1u0729j9-0547-53ny-s008-m2lxd695950a 5a3253g0-9436-89id-z482-z9cjw386804p ANSI-Medicare Part B 2182yw20-2y18-6u61-6h2g-1278j6276593 4190xe79-5x77-4g77-6s1t-4670p0817113 ANSI-Medicare Part B 1h941824-6k5s-42z9-7683-13150eqv17g1 9n399091-0e3l-53s6-1008-31733hrl50u6 ANSI-Medicare Part B 403c8j5c-3025-4982-i432-56dv8p581k1v 235d6y3a-8413-1340-n544-52sr3k649j2b ANSI-Commercial w74mj7w6-68e7-3ooo-j8h0-622qd048tieh l44yh1a6-64c9-3wpt-b1r6-501gr908hwit ANSI-Medicare Part B 00bf51pk-c29u-379i-y7w1-ke59w0x3yf48 83cb87zl-u60w-850q-c4s3-pz26i8z1nq15 ANSI-Medicare Part B 96n7z8c0-a3my-21zw-9y41-3q1347k493jt 11a2r7u2-d4uv-07yv-8z59-3y2135p590ik ANSI-Commercial 9hp667t4-a68m-94k5-6srn-z31bn6846i94 5ju789x6-o00x-49p1-2zni-y86mo1907u10 ANSI-Commercial 71503zvs-8f5s-0l4i-1879-2p94u09i7340 53673tfa-3h9d-9j2i-8252-9q71t51t8052 ANSI-Medicare Part B 6tm07520-24fe-26x0-l1j3-u20978225n47 8eu16402-25xz-95w9-c1y0-k60001725f50 ANSI-Medicare Part B v8wq277m-5b03-118i-44m7-7390q3q126d9 f9oy130h-6w72-377x-01z7-2678y8c419f0 ANSI-Medicare Part B u38sj40m-55j7-5r3a-zu22-448t42677faz y74jk95r-62t9-4c8s-nx46-810b89103pku ANSI-Medicare Part B [id number]-3663-b03n-1363e9628p69 02a68372-vt6g-2863-o86s-5613v1826k95 ANSI-Commercial q6953932-u30q-9256-8ann-9o4m29ux1128 a3863432-p20v-6875-2tup-0p7b79bq5598 ANSI-Commercial ip5r5q64-qcm6-5pku-o384-h00338c76462 yp7c1b95-ymg2-1lqt-s924-w75964e83452 ANSI-Medicare Part B [id number]-69m7-356s-9w196jr7bv30 7yf2h396-44we-88e8-122k-4m501je9bu57 ANSI-Medicare Part B 9qm4gy27-7do4-3672-9611-ewkm72t90y2e 3ly9qy74-9kv7-5264-8743-pmtk38c11q0t ANSI-Medicare Part B [id number]-531a-847p-367b-610q623v1md9 085a589y-784c-906x-533v-051u988s2wb8 ANSI-Commercial p0m45157-20cc-8x2b-2990-50a1418z92pr d4d14645-97gt-1q5r-0841-25i2360q41eh ANSI-Medicare Part B [id number]0187q585 t75n2w98-8240-89e1-64u6-8a4b2647h250 ANSI-Medicare Part B [id number]-n354-9mj2-r588-58rwa344frk4 9526t459-t779-3yx0-t886-74fno114isb6 ANSI-Commercial 3rq8utvy-6h49-18y5-s38r-j5p5wen474k0 9gj4vkof-5m60-88z9-g28j-c7d2ndg701g8 ANSI-Medicare Part B [id number]-264n-j6mw-835251w3y98c 9o223hjb-rd1x-508e-e3hc-656699j2b16u ANSI-Medicare Part B [id number]-36c4-r5r6-65y0z750qdm8 xw446123-153o-68a4-j7a8-32z6b639txn0 ANSI-Medicare Part B [id number]-y1w1-g4wcidmng10s 354f4503-6817-1910-i9s9-e8srgrfjc10b ANSI-Commercial 5vz4w2re-m8n1-9d44-fmig-y5o6tiv74y24 2qd9m7yb-d9l6-5o69-oyws-r7w5wqa63a20 ANSI-Medicare Part B [id number]-m32f-8b0r-o6jz-63rs98249t2q 699m990i-v48v-4b1r-c7st-07sg48781i3c ANSI-Medicare Part B [id number]-9px5-9217-c1a942n3f345 298e3ch5-8s3o-1bb5-7873-y8n217z5a487 ANSI-Commercial f422219l-33w4-079s-n8q5-56s38j63ff44 t672164u-69l9-133g-g6p2-03b44x67rb63 ANSI-Medicare Part B [id number]-6xh3-j3yf7948y567 e7928383-hz66-1q7v-7ct9-m2hd5812i798 ANSI-Commercial r109is8x-me3o-51q6-7b3n-881p98f337g6 y819ek7y-rg1j-54z6-2q2d-067d10k845l5 ANSI-Medicare Part B chj509hs-5i7g-34uj-z667-66318yey737q zto810km-0j6u-48bd-z724-82263htw317n ANSI-Medicare Part B c78gc762-kufu-1xf1-p5ho-6w5q420z3968 j05co045-pzee-4vd5-y3ux-7j4r950f9906 ANSI-Medicare Part B 78luj73f-c7ep-3929-xf24-21057vtgyh42 21esg39l-d4mk-6927-pe02-14938cwndu84 ANSI-Commercial 714273c3-q914-1598-d447-6o4vk492o0e9 996389m8-k678-4407-q609-3i2yv015l7v0 ANSI-Medicare Part B 0qkw519h-101d-92gi-5807-21h50e85s21x 8dej482s-765s-91cf-8779-87g21p93r38d ANSI-Commercial n5r37h73-9121-183b-ha1i-n396247k5b2p j0h10p08-3767-786r-yw3z-h538095o9g6y ANSI-Medicare Part B atpm5o15-g9sm-18u6-zyur-11hwmalnffz3 qzxi2j27-t3ty-09a4-kyoh-48wumupudjm7 ANSI-Medicare Part B n24p02rh-73ma-43w8-699e-e6676z613r37 a88a75zd-41ry-85s6-153a-z4679o510c34 ANSI-Commercial xcq4w3q5-3x1n-17r9-t92y-7casd2c87589 suw2t0d8-1g3r-84w5-m66r-4ihvi8c48920 ANSI-Medicare Part B u7mo22a7-56n6-68cq-6g11-19623mac1574 h5xr54l1-45s1-76vr-6l39-93170csz9392 ANSI-Commercial r96344s2-141j-7319-c581-699215629312 a06418m5-610z-3706-t275-465704224274 ANSI-Medicare Part B q1sm7swx-9758-4h88-9125-5p93j2w6nj84 m3qw3tyg-8813-2s02-5351-9j35g6k2ok46 ANSI-Medicare Part B a4n774f8-8bq3-9948-1949-il6x09c0693e d5f863t7-3ii1-0103-4004-iq5c31y5437b ANSI-Medicare Part B 32k1z343-7f61-7aq1-8508-5y1f5mflynd9 73p5o355-2p96-3nx8-5536-0x2j4vzahcl3 ANSI-Medicare Part B 3998q4f6-6046-6629-6tnz-y3vx152akh44 9479o1m1-8409-8116-1jgt-v2be392agg33 ANSI-Commercial 6302yt58-f91o-70w3-0249-uyn909rr2319 9451qv23-m94m-69a8-9511-nhm399uj7195 ANSI-Commercial c8899z1q-4e4e-4545-s755-0fr825r3h098 n0089e2b-6n8c-3317-y197-8gc868m6d592 ANSI-Medicare Part B [id number]-m80d654z2bj0 rt3g6503-2287-3020-95j4-t51w964m0is0 ANSI-Medicare Part B 26cg3r07-e0b9-25s7-f315-3692pqm67yrc 47yw1e15-y1a3-77o3-p618-0323vbs05kpk ANSI-Commercial o9hz18r7-42q6-8185-l402-y041e8t2037o k7sr99n1-55l8-2569-u907-i812x2c2819d ANSI-Medicare Part B rt31uk07-hu22-4192-fg76-42qx666354p3 ax29fz57-jb28-6625-rx22-01fc449980q5 ANSI-Medicare Part B 23f9o220-b98l-7988-270b-h8f3o41d2yoj 37a5b999-r94z-5631-012f-o9n5o21o0kyk MEDICARE [id number] A ANSI-Medicare Part B vuq49l05-480x-9331-6a45-010898z5px3g sph91l75-816z-0584-8g56-383770s2he1u ANSI-Commercial 7e5uak84-4efu-1i0v-d1b0-7o2qd58332xb 0j3oxz91-9jcr-7g8e-n1x7-0o7dl02744lz ANSI-Medicare Part B 73b82323-5b92-75p4-1bht-22py9bl23cb0 74x75742-4x91-87m6-5twi-52ih5ya41dw5 ANSI-Medicare Part B 79342bt5-7483-9906-z22h-6i86e75mp900 62247ue0-7899-1982-t39w-5u42l69wr793 ANSI-Medicare Part B 174807pu-574p-55p7-876d-94wkvr251385 067715jh-495c-02w2-322v-28aklb135577 ANSI-Commercial r91tw811-6fq8-4j12-iz14-r775842dlpd1 q88nj681-5te7-5n42-kg63-s260232ckba5 ANSI-Commercial c8wh0776-55bl-23g0-3417-n8klr7t92557 v6nu3138-62ww-38b0-0296-j8nea0q65015 ANSI-Medicare Part B h243s089-4wkv-918c-5c5y-x0ow119jf0l3 p065i292-1xkj-441e-2m7o-g3wm981wu5p3 ANSI-Medicare Part B [id number]-f881-5i70-0o0l-1g557h2e9jy9 1j940063-q285-4v42-5h0i-1x465v6c1sw5 ANSI-Medicare Part B sf379qc7-8r05-28ik-7k6j-w884f7l3tt6t wl263zr0-8o29-17ul-5u2a-e040j4r0zn5c ANSI-Commercial 5pkp2470-flf3-5wkc-8mz4-508e3k3mm7nx 9mky2181-iqh8-9bhm-8vz4-982o9k9yp5fy ANSI-Medicare Part B 50c8oi55-v1z8-301n-clm7-pf53817o83o7 83y5km65-f4i0-063v-psm7-iq66671i60d0 A[employer] OPTIONS [id number] SP [id number] [employer] OPTIONS [id number] SP [id number] [employer] [facility] OPTIONS [id number] SP [id number] AARP O [id number] S [id number] Tod[employer] Options Commercial [id number] Self [id number] AARP O [id number] S [id number] TODAYS OPTION MEDICARE [id number] Mariluz [employer] Commercial [id number] 9568.0 Self [id number] TODAYS OPTION MEDICARE PI PI [employer] [facility] OPTIONS [id number] SP [id number] TODAYS OPTION MEDICARE [id number] Mariluz [id number] [employer] Commercial .[id number] 9568.0 Self [employer] Commercial [id number] .[id number] 9568.0 Self Tod[employer] Option Commercial [id number] Self TODAYS OPTION CO 18 011 AETNA MEDICARE [id number] SP [id number] MEDICARE COMPLETE-UHC O [id number] S [id number] [facility] Medicare Commercial [id number] Self [id number] [facility] Medicare Commercial [id number] Self [place] Superfly [id number] .[id number] Self [place] [id number] Self MEDICAID [id number] SP [id number] MEDICAID [id number] SP [id number] SELF PAY UNAVAILABLE SP UNAVAILA BLE MEDICAID [id number] SP [id number] MEDICAID [id number] SP [id number] AARP O [id number] S [id number] 2 MEDICARE COMPLETE-UHC O [id number] S [id number] MEDICARE [id number] SP [id number] A BLUE CROSS BLUE SHIELD-CLINIC [id number] 18 [id number] BLUE CROSS BLUE SHIELD-O/P [id number] 18 [id number] MEDICARE BLUE PPO P [id number] S [id number] [facility] [id number] 18 [id number] [facility] Medicare Commercial [id number] Self [id number] AETNA MEDICARE [id number] SP [id number] HUMANA GOLD [id number] SP [id number] MEDICARE [id number] SP [id number] Medicaid [facility] Other 0 [id number] Self 0 Humana Care Plan Other 0 [id number] Self 0 Medicare Part B of [place] Other 0 [id number] Self 0 HUMANA GOLD [id number] SP [id number] AETNA MEDICARE [id number] SP [id number] MEDICARE [id number] SP [id number] HUMANA GOLD [id number] SP [id number] TODAYS OPTIONSDO NOT USE [id number] SP [id number] AARP HEALTH CARE OPTIONS [id number] SP [id number] HUMANA GOLD [id number] SP [id number] HUMANA GOLD O [id number] S [id number] HUMANA GOLD O [id number] S [id number] HUMANA GOLD O [id number] S [id number] HUMANA GOLD [id number] SP [id number] [place] [id number] SP [id number] MEDICAID M [id number] S [id number] Medicare Wrap S [id number] S [id number] TODAYS OPTIONS [id number] SP [id number] WELLCARE [id number] SP [id number] HUMANA PPO [id number] SP [id number] Todays Options Medigap Part B [id number] Self [id number] Humana MCR Adv Commercial [id number] Self [id number] ANSI-Not a Secondary Insurance [id number]-z31i-3u188 px3a2d7 bf0dv598-4109-26h5-w90h-8d276yq9z1y6 ANSI-Medicare Part B [id number]-1x71-7122-4r7z-9w0nebf3p0he 4w7q0d4o-8k60-4692-6z4r-0m5pyau9n9dq ANSI-Commercial 99888pq0-q88u-1153-364b-3ko751557k36 29586sm0-c52n-4052-349f-7mp800337l23 ANSI-Health Maintenance Organization ( O) [id number]-sj61-5xqu-u8e8-53548h0th5vf 8710tz55-sc54-4qag-k7b9-43749y4og2ea ANSI-Commercial 9ua50852-2a9z-7zee-a197-g41c7wl00alb 6sb15915-5m9j-6njd-n325-e07n3fu03vtz ANSI-Medicare Part B [id number]-007c-9p6v-5394-4hu045zz38cn gi99936z-934v-9g6q-7832-1xq435oh29ke ANSI-Health Maintenance Organization ( O) [id number]q1z8 [id number]2b1873u2w5 ANSI-Medicare Part B [id number]-15n1-0c83-yi13-24900j59y771 bw16ji7n-82p1-8p00-sf06-72570h48s949 ANSI-Commercial sdgyf2z2-3m62-2b63-l1v1-8o22077i3343 xgzxx4t4-5x38-4u06-c8d6-4z90006r0223 ANSI-Medicare Part B 7kw4j003-b5va-07gg-9517-7r74v5013jx9 0bw2w844-z3nc-29tr-0757-4d28i6828gb1 ANSI-Commercial kv2fj97u-nol7-9p5k-s834-50n5zz145941 xo0dk03i-cmf1-5j2f-p810-62f0er686466 ANSI-Not a Secondary Insurance [id number]-1562-46m1-ft5f-483vv krne346 0tv299xg-1902-77q1-zo0d-619mtqozs031 ANSI-Not a Secondary Insurance [id number]-av468 [id number] 59c05i22-1c20-76c0-2bms-hr4035g163c4 ANSI-Medicare Part B [id number]-5rm7-0f20-[id number] 240da986-095f-8kf4-8t53-b4bs97ih2m26 ANSI-Medicare Part B [id number]-09me-[id number] 33g1zy71-k606-91ql-54ia-01550j799100 ANSI-Commercial h6gn3zd4-m057-2mnb-p74u-zm883o6g4156 u0oo6sd3-w699-1hlr-n29d-km767l3z1855 ANSI-Health Maintenance Organization ( O) [id number]-0i67-w71n-6c1n82ao1x52 [id number]-8z66-n45n-5x8v90el6x18 ANSI-Commercial 973i2t87-y4s1-4572-8iz0-0ntx1v60rvu2 200b3m18-t2s6-8633-5wa8-1ura1a19vwl9 SELF PAY ONLY [id number] SP [id number] HUMANA PPO [id number] SP [id number] WELLCARE [id number] SP [id number] ANSI-Health Maintenance Organization ( O) [id number]-88kl-8490-kpqs-678z72c392nc 980j99ar-33vx-8251-qzjk-163q43v903nr ANSI-Medicare Part B [id number]-[id number] 6f0h1p19-5773-80kq-id09-743u7p8957x2 ANSI-Medicare Part B [id number]-68km-2681-y271-kgi408z24f69 5386boor-76bc-1355-a734-cpi603i60e47 Problems, Conditions, and Diagnoses Code Display Name Description Problem Type Effective Dates Data Source(s) 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) Iron deficiency anemia secondary to bloo Diagnosis 07/06/2020 09:51:07 AM EDT [facility] I10 Essential (primary) hypertension Essential (primary) h ypertension Diagnosis 07/06/2020 09:51:07 AM EDT [facility] R01.1 Cardiac murmur, unspecified Cardiac murmur, unspecifie d Diagnosis 12/30/2019 08:50:51 AM [facility] R94.31 Abnormal electrocardiogram [ECG] [EKG] A bnormal electrocardiogram (ECG) (EKG) Diagnosis 12/30/2019 08:50:51 AM [facility] K21.9 Gastro-esophageal reflux disease without esophagitis Gastro-esophageal reflux disease without Diagnosis 12/30/2019 08:50:51 AM [facility] M19.90 Unspecified osteoarthritis, unspecified site Unspecified osteoarthritis, unspecified Diagnosis 12/30/2019 08:50:51 AM [facility] E03.9 Hypothyroidism, unspecified Hypothyroidism, unspecifie d Diagnosis 12/30/2019 08:50:51 AM [facility] Z79.4 rn long term care (current) use of insulin [facility] (cu rrent) use of insulin Diagnosis 12/30/2019 08:50:51 AM [facility] E11.9 Type 2 diabetes mellitus without complic ations Type 2 diabetes mellitus without complic Diagnosis 12/30/2019 08:50:51 AM [facility] E78.5 Hyperlipidemia, unspecified Hyperlipidemia, unspecifie d Diagnosis 12/30/2019 08:50:51 AM [facility] N18.9 Chronic kidney disease, unspecified Chronic kidn ey disease, unspecified Diagnosis 12/30/2019 08:50:51 AM [facility] 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 I25.10 Atherosclerotic heart diseas e of [place] coronary artery without angina pectoris Atherosclerotic heart disease of [place] Diagnosis 12/30/2019 08:50:51 AM EST [facility] I50.9 Heart failure, unspecified Heart failure, unspecified Diagnosis 12/30/2019 08:50:51 AM EST [facility] mild to mod cord compression of C5 and C 6 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 Diagnosis 11/13/2019 12:27:00 PM EDT [facility] M54.12 Cervical radiculopathy Cervical radiculopathy Problem 10/19/2020 12:00:00 AM EDT [facility] ([facility] ) M48.02 Spinal stenosis in cervical region Spinal stenos is in cervical region Problem 10/19/2020 12:00:00 AM EDT [facility] ([facility], ) R20.2 [id number] Paresthesia of both hands Problem 10/03/2020 12:00:00 AM EDT eC ([facility]) M43.06 Spondylolysis Spondylolysis Problem 08/09/2020 12:00:00 AM EDT [facility] ([facility]) 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 Problem 08/09/2020 12:00:00 AM EDT [facility] ([facility]) 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 Problem 08/09/2020 12:00:00 AM EDT [facility] ([facility] ) G56.23 Lesion of ulnar nerve Lesion of ulnar nerve Problem 08/09/2020 12:00:00 AM EDT [facility] ([facility]) G25.0 Essential tremor Essential tremor Problem 08/09/2020 12 :00:00 AM EDT [facility] ([facility] ) G25.2 [id number] Intention tremor Problem 07/05/2020 12:00:00 AM EDT eCW ([facility]) R29.6 [id number] Frequent falls Problem 06/13/2020 12:00:00 A M EDT eC ([facility]) R20.2 [id number] Arm paresthesia, right Problem 05/12/2020 12:00:00 AM EDT eCW1 ([facility]) R20.2 [id number] Right leg paresthesias Problem 05/12/2020 12:00:00 AM EDT eCW1 ([facility]) K29.80 45794773 Duodenitis Problem 01/19/2020 12:00:00 AM ES T eCW1 ([facility]) D50.0 775572189 Blood loss anemia Problem 01/19/2020 12:00:0 0 AM EST eCW1 ([facility]) 23587490 Essential hypertension Essential hypertension Problem 01/07/2020 12:00:00 AM EST [facility] ([facility]) N18.9 Chronic kidney disease Chronic kidney disease [id number] 12/30/2019 12:00:00 AM EST [facility] I50.32 177201865 Chronic diastolic congestive heart failur e Problem 12/01/2019 12:00:00 AM EDT eCW1 ([facility]) 362.11 Retinopathy Hypertensive Retinopathy Hypertensive Prob juan 04/03/2018 12:00:00 AM EST - 10/05/2020 12:00:00 AM EDT SHANE (Aydin Toribio MD [facility]) 366.16 Age-related nuclear cataract, bilateral Age-related nuclear cataract, bilateral Problem 05/13/2017 12:00:00 AM EDT - 10/05/2020 12:00:00 AM EDT SHANE (Aydin Toribio MD [facility]) Surgeries/Procedures Procedure Description Date Indications Data Source(s) OFFICE OUTPATIENT VISIT 40 MINUTES 10/19/2020 12:00:00 AM EDT [facility] ([facility]) Surgical / procedural history : Cholecys tectomy, Hysterectomy 1989, Right Salivary Gland removed, Fistula removed, 1981, Gallbladder 1982 Surgical / procedural history : Cholecystectomy, Hysterectomy 1989, Right Salivary Gland removed, Fistula removed, 1981, Gallbladder 198210/05/2020 12:00:00 AM EDT SHANE (Aydin mckenna MD [facility]) Extracapsular extraction of lens (procedure) History o f extracapsular cataract extraction PCIOL OD by Dr. Mustafa 12/20/16 ~PCIOL OS by Dr. Mustafa 01/03/17 10/05/2020 12:00:00 AM EDT SHANE (Eric Toribio MD [facility]) OFFICE OUTPATIENT VISIT 15 MINUTES 10/04/2020 12:00:00 AM EDT [facility] ([facility]) ARTHROCENTESIS ASPIR&/INJECTION MAJOR JT/BURSA 021 12:00:00 AM EDT [facility] ([facility]) RADIOLOGIC EXAM KNEE COMPLETE 4/MORE VIEWS 09/21/2020 12:00:00 AM EDT [facility] ([facility]) OFFICE OUTPATIENT VISIT 15 MINUTES 09/21/2020 12:00:00 AM EDT [facility] ([facility]) RADIOLOGIC EXAM KNEE COMPLETE 4/MORE VIEWS 09/21/2020 12:00:00 AM EDT [facility] ([facility]) OFFICE OUTPATIENT VISIT 15 MINUTES 09/20/2020 12:00:00 AM EDT [facility] ([facility]) ARTHROCENTESIS ASPIR&/INJECTION MAJOR JT/BURSA 021 12:00:00 AM EDT [facility] ([facility]) RADEX SPINE LUMBOSACRAL 2/3 VIEWS 08/18/2020 12:00:00 AM EDT [facility] ([facility]) OFFICE OUTPATIENT VISIT 25 MINUTES 08/18/2020 12:00:00 AM EDT [facility] ([facility]) Needle electromyography, each extremity, with related paraspinal areas, when performed, done with nerve conduction, amplitude and latency/velocity study; complete, five or more muscles studied, innervated by three or more nerves or four or more spinal levels (list separately in addition to the code for primary procedure). 08/15/2020 12:00:00 AM EDT MEDEN T ([facility], ) Needle electromyography, each extremity, with related paraspinal areas, when performed, done with nerve conduction, amplitude and latency/velocity study; complete, five or more muscles studied, innervated by three or more nerves or four or more spinal levels (list separately in addition to the code for primary procedure). 08/15/2020 12:00:00 AM EDT MEDEN T ([facility], ) Nerve Conduction 9-10 Studies 08/15/2020 12:00:00 AM E DT MED[facility] ([facility] ) OFFICE OUTPATIENT NEW 60 MINUTES 08/09/2020 12:00:00 A M EDT [facility] ([facility] ) OFFICE OUTPATIENT VISIT 25 MINUTES 08/01/2020 12:00:00 AM EDT [facility] ([facility] ) RADEX SPINE LUMBOSACRAL 2/3 VIEWS 07/13/2020 12:00:00 AM EDT [facility] ([facility] ) OFFICE OUTPATIENT VISIT 15 MINUTES 07/13/2020 12:00:00 AM EDT [facility] ([facility]) ECG ROUTINE ECG W/LEAST 12 LDS W/I&R <td>POCT AMB EKG</td><td>Routine</td><td>06/08/2020 5:25 PM EDT</td><td> Coronary artery disease due to calcified coronary lesion</td><td> </td> 06/08/2020 09:25:00 PM EDT Coronary artery disease due to calcified coronary lesi on [facility] Coronary artery disease due to calcified coronary lesion OFFICE OUTPATIENT VISIT 40 MINUTES 05/26/2020 12:00:00 AM EDT [facility] ([facility]) OFFICE OUTPATIENT VISIT 10 MINUTES 03/24/2020 12:00:00 AM EST [facility] ([facility], ) Endoscopy Upper GI Complex Diagnostic 02/17/2020 12:00 :00 AM EST [facility] ([facility] ) ARTHROCENTESIS ASPIR&/INJECTION MAJOR JT/BURSA 020 12:00:00 AM EDT [facility] ([facility]) Therapeutic, Prophylactic Or Diagnostic Injection Subq/Im 11/06/2019 12:00:00 AM EDT [facility] ([facility]) Results ID Date Data Source TSH 10/03/2020 12:00:00 AM EDT W1 ([facility]) Name Value Range Interpretation Code Description Data Jessica rce(s) Supporting Document(s) 5.420 0.358-3.740 THYROID STIMULATING HORM ONE eCW1 ([facility]) ID Date Data Source Basic Metabolic Profile (BMP) 10/03/2020 12:00:00 AM EDT eCW 1 ([facility]) Name Value Range Interpretation Code Description Data Jessica rce(s) Supporting Document(s) 31 7-18 BLOOD UREA NITROGEN eCW1 ([facility]) 310 70-100 GLUCOSE, FASTING eCW1 ([facility]) 1.11 0.55-1.30 CREATININE FOR GFR eCW1 ([facility]) 52.0 >45 GLOMERULAR FILTRATION RATE eCW 1 ([facility]) 137 136-145 SODIUM LEVEL eCW1 ([facility]) 9.5 8.8-10.2 CALCIUM LEVEL eCW1 ([facility]) 103 98-107 CHLORIDE LEVEL eCW1 ([facility]) 21 21-32 CARBON DIOXIDE LEVEL eCW1 ([facility]) 3.8 3.5-5.1 POTASSIUM SERUM eCW1 ([facility]) ID Date Data Source [id number] 10/03/2020 12:00:00 AM EDT eCW1 ([facility]) Name Value Range Interpretation Code Description Data Jessica rce(s) Supporting Document(s) Hemoglobin A1c/Hemoglobin.total in Blood 11.3 HEMOGLOBIN A1c eCW1 ([facility]) ID Date Data Source [id number] 08/27/2020 09:14:00 PM EDT [facility] Name Value Range Interpretation Code Description Data Jessica rce(s) Supporting Document(s) SARS coronavirus 2 RNA [Presence] in Res piratory specimen by AVI with probe detection NEGATIVE [facility] This lab was ordered by [facility] a nd reported by [facility]. ID Date Data Source [id number] 07/23/2020 07:57:00 AM EDT [facility] FASTING: UNKNOWNReceived: 07/23/2020 at 07:55:00 QPT: [facility], [address], [address] [place] [address], [place], [address], Bridger Mckinley MD Received: 07/23/2020 at 07:55:00 QPT : [facility], [address], [address] [place], [address], Bridger Mckinley MD Name Value Range Interpretation [...] is approximately 13% higher for peopleidentified as -Lebanese. eGFR NON-AFR. SERBIAN 89 mL/min/1.73m2 > OR = 60 Normal [...] results) [facility] ID Date Data Source [id number] 07/23/2020 07:57:00 AM EDT [facility] FASTING: UNKNOWNReceived: 07/23/2020 at 07:55:00 QPT: [facility], [address], [address] [place], [address], Bridger Mckinley MD Received: 07/23/2020 at 07:55:00 QPT : [facility], [address], [address] [place], [address], Bridger Mckinley MD Name Value Range Interpretation [...] DTHE DATE THE SPECIMEN WAS [facility] THE COLLECTION DATE. IF THISIS INCORRECT, PLEASE CONTACT CLIENT SERVICES.PHONE NUMBER: [phone] ID Date Data Source [id number] 05/30/2020 03:59:00 PM EDT [facility] Name Value Range Interpretation Code Description Data Jessica rce(s) Supporting Document(s) SARS coronavirus 2 RNA [Presence] in Res piratory specimen by AVI with probe detection NEGATIVE [facility] This lab was ordered by [facility] a nd reported by [facility]. ID Date Data Source [id number] 05/15/2020 11:00:00 AM EDT [facility] Name Value Range Interpretation Code Description Data Jessica rce(s) Supporting Document(s) SARS coronavirus 2 RNA [Presence] in Res piratory specimen by AVI with probe detection NEGATIVE [facility] This lab was ordered by [facility] a nd reported by [facility]. ID Date Data Source [id number] 05/12/2020 10:00:00 AM EDT [facility] Name Value Range Interpretation Code Description Data Jessica rce(s) Supporting Document(s) SARS coronavirus 2 RNA Not Detected [facility] This lab was ordered by [facility] and reported by [facility]. ID Date Data Source [facility] CT ANGIO CHEST 02/24/2020 12:00:00 AM EST eCW1 ([facility]) Name Value Range Interpretation Code Description Data Jessica rce(s) Supporting Document(s) [facility] CT ANGIO CHEST eCW1 ([facility]) ID Date Data Source [id number] QUANT 02/23/2020 12:00:00 AM EST eCW1 ([facility]) Name Value Range Interpretation Code Description Data Jessica rce(s) Supporting Document(s) 1932.80 <500 D-DIMER QUANT eCW1 ([facility]) ID Date Data Source [id number] 02/12/2020 11:00:00 AM EST [facility] Name Value Range Interpretation Code Description Data Jessica rce(s) Supporting Document(s) SARS coronavirus 2 RNA [facility] This lab was ordered by [facility] and reported by [facility]. ID Date Data Source CBC - Complete Blood Count 02/09/2020 12:00:00 AM EST eCW1 ( [facility]) Name Value Range Interpretation Code Description Data Jessica rce(s) Supporting Document(s) 4.96 4.00-5.40 RED BLOOD COUNT eCW1 ([facility]) 11.1 12.0-15.5 HEMOGLOBIN eCW1 ([facility]) 8.6 4.0-10.0 WHITE BLOOD COUNT eCW1 ([facility]) 36.7 36.0-47.0 HEMATOCRIT eCW1 ([facility]) 74.0 80.0-96.0 MEAN CORPUSCULAR VOLUME e CW1 ([facility]) 22.4 27.0-33.0 MEAN CORPUSCULAR HEMOGLOB IN eCW1 ([facility]) 23.9 11.5-14.5 RED CELL DISTRIBUTION WID TH eCW1 ([facility]) 30.2 32.0-36.5 MEAN CORPUSCULAR HGB CONC eCW1 ([facility]) 305 150-450 PLATELET COUNT, AUTOMATED eCW1 ([facility]) ID Date Data Source [id number] 01/31/2020 06:30:00 PM EST [facility] Name Value Range Interpretation Code Description Data Jessica rce(s) Supporting Document(s) SARS coronavirus 2 RNA [Presence] in Res piratory specimen by AVI with probe detection [facility] This lab was ordered by [facility] a nd reported by [facility] Procedure Social History Code Duration Value Status Description Data Source(s ) Smoking 12/12/2020 12:00:00 AM EDT Former Smoker completed Former Smoker eCW1 ([facility]) Smoking 12/12/2020 12:00:00 AM EDT Former Smoker completed Former Smoker eCW1 ([facility]) Smoking 12/12/2020 12:00:00 AM EDT Former Smoker completed Former Smoker eCW1 ([facility]) Smoking 12/12/2020 12:00:00 AM EDT Former Smoker completed Former Smoker eCW1 ([facility]) Alcohol intake 10/12/2020 12:00:00 AM EDT Current drinker of al cohol (finding) completed Current drinker of alcohol (finding) [facility] Tobacco use and exposure 10/12/2020 12:00:00 AM EDT Never used co mpleted Never used [facility] Smoking 10/12/2020 12:00:00 AM EDT Former smoker completed Former smoker [facility] Smoking 10/11/2020 12:00:00 AM EDT Former Smoker completed Former Smoker eCW1 ([facility]) Smoking 10/11/2020 12:00:00 AM EDT Former Smoker completed Former Smoker eCW1 ([facility]) Smoking 10/11/2020 12:00:00 AM EDT Former Smoker completed Former Smoker eCW1 ([facility]) Smoking 10/05/2020 11:56:16 AM EDT Ex-smoker (finding) complet ed Ex-smoker (finding) SHANE (Aydin Toribio MD [facility]) Smoking 10/03/2020 12:00:00 AM EDT Former Smoker completed Former Smoker eCW1 ([facility]) Smoking 10/03/2020 12:00:00 AM EDT Former Smoker completed Former Smoker eCW1 ([facility]) Smoking 10/03/2020 12:00:00 AM EDT Former Smoker completed Former Smoker eCW1 ([facility]) Smoking 10/03/2020 12:00:00 AM EDT Former Smoker completed Former Smoker eCW1 ([facility]) Alcohol intake 09/09/2020 12:00:00 AM EDT Current drinker of al cohol (finding) completed Current drinker of alcohol (finding) [facility] Smoking 08/22/2020 12:00:00 AM EDT Former Smoker completed Former Smoker eCW1 ([facility]) Smoking 08/22/2020 12:00:00 AM EDT Former Smoker completed Former Smoker eCW1 ([facility]) Smoking 08/22/2020 12:00:00 AM EDT Former Smoker completed Former Smoker eCW1 ([facility]) Smoking 08/22/2020 12:00:00 AM EDT Former Smoker completed Former Smoker eCW1 ([facility]) Smoking 08/22/2020 12:00:00 AM EDT Former Smoker completed Former Smoker eCW1 ([facility]) Smoking 08/22/2020 12:00:00 AM EDT Former Smoker completed Former Smoker eCW1 ([facility]) Smoking 08/22/2020 12:00:00 AM EDT Former Smoker completed Former Smoker eCW1 ([facility]) Smoking 08/22/2020 12:00:00 AM EDT Former Smoker completed Former Smoker eCW1 ([facility]) Smoking 08/22/2020 12:00:00 AM EDT Former Smoker completed Former Smoker eCW1 ([facility]) Smoking 08/02/2020 12:00:00 AM EDT Former Smoker completed Former Smoker eCW1 ([facility]) Smoking 08/02/2020 12:00:00 AM EDT Former Smoker completed Former Smoker eCW1 ([facility]) Smoking 07/20/2020 12:00:00 AM EDT Former Smoker completed Former Smoker eCW1 ([facility]) Smoking 07/20/2020 12:00:00 AM EDT Former Smoker completed Former Smoker eCW1 ([facility]) Smoking 07/20/2020 12:00:00 AM EDT Former Smoker completed Former Smoker eCW1 ([facility]) Alcohol intake 07/06/2020 12:00:00 AM EDT Current drinker of al cohol (finding) completed Current drinker of alcohol (finding) [facility] Smoking 07/05/2020 12:00:00 AM EDT Former Smoker completed Former Smoker eCW1 ([facility]) Smoking 07/05/2020 12:00:00 AM EDT Former Smoker completed Former Smoker eCW1 ([facility]) Smoking 07/05/2020 12:00:00 AM EDT Former Smoker completed Former Smoker eCW1 ([facility]) Smoking 07/05/2020 12:00:00 AM EDT Former Smoker completed Former Smoker eCW1 ([facility]) Smoking 07/05/2020 12:00:00 AM EDT Former Smoker completed Former Smoker eCW1 ([facility]) Smoking 06/13/2020 12:00:00 AM EDT Former Smoker completed Former Smoker eCW1 ([facility]) Smoking 06/13/2020 12:00:00 AM EDT Former Smoker completed Former Smoker eCW1 ([facility]) Smoking 06/13/2020 12:00:00 AM EDT Former Smoker completed Former Smoker eCW1 ([facility]) Smoking 06/13/2020 12:00:00 AM EDT Former Smoker completed Former Smoker eCW1 ([facility]) Alcohol intake 06/08/2020 12:00:00 AM EDT Yes completed [facility] Smoking 06/08/2020 12:00:00 AM EDT [facility]oker [facility] 05/12/2020 12:00:00 AM EDT Former Smoker completed Former Smoker eCW1 ([facility]) Smoking 05/12/2020 12:00:00 AM EDT Former Smoker completed Former Smoker eCW1 ([facility]) Smoking 05/12/2020 12:00:00 AM EDT Former Smoker completed Former Smoker eCW1 ([facility]) Smoking 05/12/2020 12:00:00 AM EDT Former Smoker completed Former Smoker eCW1 ([facility]) Smoking 05/12/2020 12:00:00 AM EDT Former Smoker completed Former Smoker eCW1 ([facility]) Smoking 05/12/2020 12:00:00 AM EDT Former Smoker completed Former Smoker eCW1 ([facility]) Smoking 05/12/2020 12:00:00 AM EDT Former Smoker completed Former Smoker eCW1 ([facility]) Alcohol intake 04/15/2020 12:00:00 AM EST Yes completed [facility] Smoking 04/15/2020 12:00:00 AM EST Never smoker completed Never s moker [facility] Smoking 04/04/2020 12:00:00 AM EST Former Smoker completed Former Smoker eCW1 ([facility]) Smoking 04/04/2020 12:00:00 AM EST Former Smoker completed Former Smoker eCW1 ([facility]) Smoking 04/04/2020 12:00:00 AM EST Former Smoker completed Former Smoker eCW1 ([facility]) Smoking 04/04/2020 12:00:00 AM EST Former Smoker completed Former Smoker eCW1 ([facility]) Smoking 04/04/2020 12:00:00 AM EST Former Smoker completed Former Smoker eCW1 ([facility]) Smoking 04/04/2020 12:00:00 AM EST Former Smoker completed Former Smoker eCW1 ([facility]) Smoking 04/04/2020 12:00:00 AM EST Former Smoker completed Former Smoker eCW1 ([facility]) Smoking 04/04/2020 12:00:00 AM EST Former Smoker completed Former Smoker eCW1 ([facility]) Smoking 03/08/2020 12:00:00 AM EST Former Smoker completed Former Smoker eCW1 ([facility]) Smoking 03/08/2020 12:00:00 AM EST Former Smoker completed Former Smoker eCW1 ([facility]) Smoking 03/08/2020 12:00:00 AM EST Former Smoker completed Former Smoker eCW1 ([facility]) Smoking 03/08/2020 12:00:00 AM EST Former Smoker completed Former Smoker eCW1 ([facility]) Smoking 03/08/2020 12:00:00 AM EST Former Smoker completed Former Smoker eCW1 ([facility]) Smoking 03/08/2020 12:00:00 AM EST Former Smoker completed Former Smoker eCW1 ([facility]) Smoking 02/23/2020 12:00:00 AM EST Former Smoker completed Former Smoker eCW1 ([facility]) Smoking 02/23/2020 12:00:00 AM EST Former Smoker completed Former Smoker eCW1 ([facility]) Smoking 02/23/2020 12:00:00 AM EST Former Smoker completed Former Smoker eCW1 ([facility]) Smoking 02/23/2020 12:00:00 AM EST Former Smoker completed Former Smoker eCW1 ([facility]) Smoking 02/23/2020 12:00:00 AM EST Former Smoker completed Former Smoker eCW1 ([facility]) Smoking 02/23/2020 12:00:00 AM EST Former Smoker completed Former Smoker eCW1 ([facility]) Smoking 02/09/2020 12:00:00 AM EST Former Smoker completed Former Smoker eCW1 ([facility]) Smoking 02/09/2020 12:00:00 AM EST Former Smoker completed Former Smoker eCW1 ([facility]) Smoking 02/09/2020 12:00:00 AM EST Former Smoker completed Former Smoker eCW1 ([facility]) Smoking 02/09/2020 12:00:00 AM EST Former Smoker completed Former Smoker eCW1 ([facility]) Smoking 02/09/2020 12:00:00 AM EST Former Smoker completed Former Smoker eCW1 ([facility]) Smoking 02/09/2020 12:00:00 AM EST Former Smoker completed Former Smoker eCW1 ([facility]) Smoking 01/26/2020 12:00:00 AM EST Former Smoker completed Former Smoker eCW1 ([facility]) Smoking 01/26/2020 12:00:00 AM EST Former Smoker completed Former Smoker eCW1 ([facility]) Smoking 01/26/2020 12:00:00 AM EST Former Smoker completed Former Smoker eCW1 ([facility]) Smoking 01/26/2020 12:00:00 AM EST Former Smoker completed Former Smoker eCW1 ([facility]) Smoking 01/26/2020 12:00:00 AM EST Former Smoker completed Former Smoker eCW1 ([facility]) Smoking 01/19/2020 12:00:00 AM EST Former Smoker completed Former Smoker eCW1 ([facility]) Alcohol intake 12/30/2019 12:00:00 AM EST Yes completed [facility] Smoking 12/30/2019 12:00:00 AM EST Never smoker completed Never s moker [facility] Smoking 12/01/2019 12:00:00 AM EDT Former Smoker completed Former Smoker eCW1 ([facility]) Smoking 12/01/2019 12:00:00 AM EDT Former Smoker completed Former Smoker eCW1 ([facility]) Smoking 12/01/2019 12:00:00 AM EDT Former Smoker completed Former Smoker eCW1 ([facility]) Smoking 12/01/2019 12:00:00 AM EDT Former Smoker completed Former Smoker eCW1 ([facility]) Smoking 12/01/2019 12:00:00 AM EDT Former Smoker completed Former Smoker eCW1 ([facility]) Smoking 12/01/2019 12:00:00 AM EDT Former Smoker completed Former Smoker eCW1 ([facility]) Smoking 12/01/2019 12:00:00 AM EDT Former Smoker completed Former Smoker eCW1 ([facility]) Smoking 12/01/2019 12:00:00 AM EDT Former Smoker completed Former Smoker eCW1 ([facility]) Smoking 12/01/2019 12:00:00 AM EDT Former Smoker completed Former Smoker eCW1 ([facility]) Smoking 12/01/2019 12:00:00 AM EDT Former Smoker completed Former Smoker eCW1 ([facility]) Smoking 12/01/2019 12:00:00 AM EDT Former Smoker completed Former Smoker eCW1 ([facility]) Smoking 12/01/2019 12:00:00 AM EDT Former Smoker completed Former Smoker eCW1 ([facility]) Smoking 11/06/2019 12:00:00 AM EDT Patient is a former smoker completed Patient is a former smoker MEDMARIA INES ([facility], [facility]) Vital Signs ID Date Data Source UNK Name Value Range Interpretation Code Description Data Source(s) Diastolic blood pressure 70 mm[Hg] 70 mm[Hg] eCW1 ([facility]) Body weight 166 [lb_av] 166 [lb_av] eCW1 ([facility]) Body height 63.5 [in_i] 63.5 [in_i] eCW1 ([facility]) Body mass index (BMI) [Ratio] 28.94 kg/m2 28.94 kg/m2 W1 ([facility]) Heart rate 74 /min 74 /min eCW1 ([facility]) Respiratory rate 18 /min 18 /min eCW1 ([facility]) Body temperature 96.5 [degF] 96.5 [degF] eCW1 ( [facility]) Systolic blood pressure 150 mm[Hg] 150 mm[Hg] e CW1 ([facility]) Systolic blood pressure 130 mm[Hg] 130 mm[Hg] [facility] Diastolic blood pressure 60 mm[Hg] 60 mm[Hg] [facility] Heart rate 65 /min 65 /min [facility] Body height 160 cm 160 cm [facility] Body weight 79.742 kg 79.742 kg [facility] Body mass index (BMI) [Ratio] 31.14 kg/m2 31.14 kg/m2 [facility] Oxygen saturation in Arterial blood by Pulse oximetry 99 % 99 % [facility] Body weight 177.4 [lb_av] 177.4 [lb_av] eCW1 ([facility]) Body weight 80.47 kg 80.47 kg eCW1 ([facility]) Body height 63.5 [in_i] 63.5 [in_i] W1 ([facility]) Body mass index (BMI) [Ratio] 30.93 kg/m2 30.93 kg/m2 W1 ([facility]) Heart rate 83 /min 83 /min eCW1 ([facility]) Respiratory rate 18 /min 18 /min eCW1 ([facility]) Body temperature 96.5 [degF] 96.5 [degF] eCW1 ( [facility]) Systolic blood pressure 160 mm[Hg] 160 mm[Hg] e CW1 ([facility]) Diastolic blood pressure 82 mm[Hg] 82 mm[Hg] eCW1 ([facility]) [place] body weight 110 [lb_av] 110 [lb_av] MEDEN T ([facility], ) Body weight 79.380 kg 79.380 kg MEDENT ([facility], ) Body surface area Derived from formula 1.81 m2 1.81 m2 MEDENT ([facility], ) Systolic blood pressure 167 mm[Hg] 167 mm[Hg] M EDENT ([facility] ) Diastolic blood pressure 73 mm[Hg] 73 mm[Hg] MEDENT ([facility]) Heart rate 83 /min 83 /min MEDENT ([facility]) Body temperature 95.2 [degF] 95.2 [degF] [facility] ([facility]) Body height 62 [in_i] 62 [in_i] [facility] 5'2" Body weight 175.00 [lb_av] 175.00 [lb_av] MEDEN T ([facility]) Body mass index (BMI) [Ratio] 32.0 kg/m2 32.0 k g/m2 [facility] ([facility]) Body weight 175 [lb_av] 175 [lb_av] eCW1 ([facility]) Body height 63.5 [in_i] 63.5 [in_i] eCW1 ([facility]) Body mass index (BMI) [Ratio] 30.51 kg/m2 30.51 kg/m2 W1 ([facility]) Heart rate 72 /min 72 /min eCW1 ([facility]) Respiratory rate 18 /min 18 /min eCW1 ([facility]) Body temperature 96.5 [degF] 96.5 [degF] eCW1 ( [facility]) Systolic blood pressure 120 mm[Hg] 120 mm[Hg] e CW1 ([facility]) Diastolic blood pressure 60 mm[Hg] 60 mm[Hg] eCW1 ([facility]) Body height 62 [in_i] 62 [in_i] [facility] 5'2" Systolic blood pressure 132 mm[Hg] 132 mm[Hg] M EDENT ([facility]) Body weight 179.00 [lb_av] 179.00 [lb_av] MEDEN T ([facility]) Body mass index (BMI) [Ratio] 32.7 kg/m2 32.7 k g/m2 [facility] ([facility]) Body surface area Derived from formula 1.82 m2 1.82 m2 [facility] ([facility] ) Diastolic blood pressure 70 mm[Hg] 70 mm[Hg] MEDENT ([facility], ) [place] body weight 110 [lb_av] 110 [lb_av] MEDEN T ([facility], ) Body weight 81.194 kg 81.194 kg MEDENT ([facility], ) Systolic blood pressure 148 mm[Hg] 148 mm[Hg] [facility] Diastolic blood pressure 68 mm[Hg] 68 mm[Hg] [facility] Heart rate 59 /min 59 /min [facility] Body height 160 cm 160 cm [facility] Body weight 81.466 kg 81.466 kg [facility] Body mass index (BMI) [Ratio] 31.81 kg/m2 31.81 kg/m2 [facility] Oxygen saturation in Arterial blood by Pulse oximetry 99 % 99 % [facility] Body temperature 97.7 [degF] 97.7 [degF] W1 ( [facility]) Body mass index (BMI) [Ratio] 31.17 kg/m2 31.17 kg/m2 W1 ([facility]) Body weight 178.8 [lb_av] 178.8 [lb_av] eCW1 ([facility]) Body height 63.5 [in_i] 63.5 [in_i] W1 ([facility]) Systolic blood pressure 142 mm[Hg] 142 mm[Hg] e CW1 ([facility]) Heart rate 103 /min 103 /min eCW1 ([facility]) Respiratory rate 18 /min 18 /min eCW1 ([facility]) Diastolic blood pressure 84 mm[Hg] 84 mm[Hg] eCW1 ([facility]) Body weight 186 [lb_av] 186 [lb_av] eCW1 ([facility]) Body height 63.5 [in_i] 63.5 [in_i] eCW1 ([facility]) Body mass index (BMI) [Ratio] 32.43 kg/m2 32.43 kg/m2 eCW1 ([facility]) Heart rate 77 /min 77 /min eCW1 ([facility]) Respiratory rate 18 /min 18 /min eCW1 ([facility]) Body temperature 96.9 [degF] 96.9 [degF] eCW1 ( [facility]) Systolic blood pressure 142 mm[Hg] 142 mm[Hg] e CW1 ([facility]) Diastolic blood pressure 76 mm[Hg] 76 mm[Hg] eCW1 ([facility]) Body weight 185.00 [lb_av] 185.00 [lb_av] MEDEN T ([facility]) Body mass index (BMI) [Ratio] 33.8 kg/m2 33.8 k g/m2 [facility] [place] body weight 110 [lb_av] 110 [lb_av] MEDEN T ([facility]) Body weight 83.916 kg 83.916 kg [facility] ([facility]) Body height 62 [in_i] 62 [in_i] [facility] 5'2" Body surface area Derived from formula 1.85 m2 1.85 m2 [facility] ([facility]) Body surface area Derived from formula 1.85 m2 1.85 m2 [facility] ([facility]) Systolic blood pressure 136 mm[Hg] 136 mm[Hg] M EDENT ([facility]) Diastolic blood pressure 70 mm[Hg] 70 mm[Hg] [facility] Body height 62 [in_i] 62 [in_i] [facility] ([facility]) 5'2" Body weight 185.00 [lb_av] 185.00 [lb_av] MEDEN T ([facility]) Body mass index (BMI) [Ratio] 33.8 kg/m2 33.8 k g/m2 [facility] ([facility]) [place] body weight 110 [lb_av] 110 [lb_av] MEDEN T ([facility]) Body weight 83.916 kg 83.916 kg MEDMARIA INES ([facility], ) Body weight 183 [lb_av] 183 [lb_av] eCW1 ([facility]) Body height 63.5 [in_i] 63.5 [in_i] eCW1 ([facility]) Body mass index (BMI) [Ratio] 31.91 kg/m2 31.91 kg/m2 eCW1 ([facility]) Heart rate 71 /min 71 /min eCW1 ([facility]) Respiratory rate 18 /min 18 /min eCW1 ([facility]) Body temperature 98.3 [degF] 98.3 [degF] eCW1 ( [facility]) Systolic blood pressure 144 mm[Hg] 144 mm[Hg] e CW1 ([facility]) Diastolic blood pressure 62 mm[Hg] 62 mm[Hg] eCW1 ([facility]) Systolic blood pressure 140 mm[Hg] 140 mm[Hg] [facility] Diastolic blood pressure 80 mm[Hg] 80 mm[Hg] [facility] Heart rate 69 /min 69 /min [facility] Body height 160 cm 160 cm [facility] Body weight 87.091 kg 87.091 kg [facility] Oxygen saturation in Arterial blood by Pulse oximetry 97 % 97 % [facility] Body mass index (BMI) [Ratio] 34.01 kg/m2 34.01 kg/m2 [facility] Body weight 192 [lb_av] 192 [lb_av] eCW1 ([facility]) Body height 63.5 [in_i] 63.5 [in_i] eCW1 ([facility]) Body mass index (BMI) [Ratio] 33.47 kg/m2 33.47 kg/m2 [facility] ([facility]) Heart rate 91 /min 91 /min eCW1 ([facility]) Respiratory rate 18 /min 18 /min eCW1 ([facility]) Body temperature 97.4 [degF] 97.4 [degF] eCW1 ( [facility]) Systolic blood pressure 130 mm[Hg] 130 mm[Hg] e CW1 ([facility]) Diastolic blood pressure 76 mm[Hg] 76 mm[Hg] eCW1 ([facility]) Body weight 189.4 [lb_av] 189.4 [lb_av] eCW1 ([facility]) Body height 63.5 [in_i] 63.5 [in_i] eCW1 ([facility]) Body mass index (BMI) [Ratio] 33.02 kg/m2 33.02 kg/m2 eCW1 ([facility]) Heart rate 73 /min 73 /min eCW1 ([facility]) Respiratory rate 18 /min 18 /min eCW1 ([facility]) Body temperature 97.3 [degF] 97.3 [degF] eCW1 ( [facility]) Systolic blood pressure 124 mm[Hg] 124 mm[Hg] e CW1 ([facility]) Diastolic blood pressure 70 mm[Hg] 70 mm[Hg] eCW1 ([facility]) Systolic blood pressure 140 mm[Hg] 140 mm[Hg] [facility] Diastolic blood pressure 80 mm[Hg] 80 mm[Hg] [facility] Heart rate 65 /min 65 /min [facility] Oxygen saturation in Arterial blood by Pulse oximetry 99 % 99 % [facility] Body height 160 cm 160 cm [facility] Body weight 84.369 kg 84.369 kg [facility] Body mass index (BMI) [Ratio] 32.95 kg/m2 32.95 kg/m2 [facility] Body height 63.5 [in_i] 63.5 [in_i] MEDENT ([facility]) 5'3.50" Body weight 190.00 [lb_av] 190.00 [lb_av] MEDEN T ([facility]) Body mass index (BMI) [Ratio] 33.1 kg/m2 33.1 k g/m2 MEDENT ([facility] Body weight 188.6 [lb_av] 188.6 [lb_av] eCW1 ([facility]) Body height 63.5 [in_i] 63.5 [in_i] eCW1 ([facility]) Body mass index (BMI) [Ratio] 32.88 kg/m2 32.88 kg/m2 eCW1 ([facility]) Heart rate 61 /min 61 /min eCW1 ([facility]) Respiratory rate 18 /min 18 /min eCW1 ([facility]) Body temperature 97.5 [degF] 97.5 [degF] eCW1 ( [facility]) Systolic blood pressure 118 mm[Hg] 118 mm[Hg] e CW1 ([facility]) Diastolic blood pressure 68 mm[Hg] 68 mm[Hg] eCW1 ([facility]) Body weight 200.4 [lb_av] 200.4 [lb_av] eCW1 ([facility]) Body height 63.5 [in_i] 63.5 [in_i] eCW1 ([facility]) Body mass index (BMI) [Ratio] 34.94 kg/m2 34.94 kg/m2 W1 ([facility]) Systolic blood pressure 130 mm[Hg] 130 mm[Hg] [facility] Diastolic blood pressure 75 mm[Hg] 75 mm[Hg] [facility] Body height 160 cm 160 cm [facility] Body weight 89.359 kg 89.359 kg [facility] Heart rate 73 /min 73 /min [facility] Body mass index (BMI) [Ratio] 34.90 kg/m2 34.90 kg/m2 [facility] [facility] Oxygen saturation in Arterial blood by Pulse oximetry 93 % 93 % [facility] Body weight 183 [lb_av] 183 [lb_av] eCW1 ([facility]) Body height 63.5 [in_i] 63.5 [in_i] eCW1 ([facility]) Body mass index (BMI) [Ratio] 31.91 kg/m2 31.91 kg/m2 eCW1 ([facility]) Body temperature 96.4 [degF] 96.4 [degF] eCW1 ( [facility]) Body weight 183 [lb_av] 183 [lb_av] eCW1 ([facility]) Body height 63.5 [in_i] 63.5 [in_i] eCW1 ([facility]) Body mass index (BMI) [Ratio] 31.91 kg/m2 31.91 kg/m2 eCW1 ([facility]) Heart rate 52 /min 52 /min eCW1 ([facility]) Respiratory rate 18 /min 18 /min eCW1 (Formerly [facility]) Systolic blood pressure 98 mm[Hg] 98 mm[Hg] e CW1 ([facility]) Diastolic blood pressure 56 mm[Hg] 56 mm[Hg] eCW1 ([facility]) Body weight 186.00 [lb_av] 186.00 [lb_av] MEDEN T ([facility], ) Body mass index (BMI) [Ratio] 34.0 kg/m2 34.0 k g/m2 [facility], [facility] [place] body weight 110 [lb_av] 110 [lb_av] MEDEN T ([facility], ) Systolic blood pressure 150 mm[Hg] 150 mm[Hg] M EDENT ([facility], ) Diastolic blood pressure 90 mm[Hg] 90 mm[Hg] MEDENT ([facility], ) Body height 62 [in_i] 62 [in_i] [facility], [facility] 5'2" Body weight 84.370 kg 84.370 kg [facility] ([facility], ) Body surface area Derived from formula 1.85 m2 1.85 m2 [facility] ([facility], ) Body weight 185 [lb_av] 185 [lb_av] eCW1 ([facility]) Body height 63.5 [in_i] 63.5 [in_i] eCW1 ([facility]) Body mass index (BMI) [Ratio] 32.25 kg/m2 32.25 kg/m2 eCW1 ([facility]) Heart rate 89 /min 89 /min eCW1 ([facility]) Respiratory rate 20 /min 20 /min eCW1 ([facility]ly [facility]) Body temperature 96.1 [degF] 96.1 [degF] eCW1 ( [facility]) Systolic blood pressure 128 mm[Hg] 128 mm[Hg] e CW1 ([facility]) Diastolic blood pressure 70 mm[Hg] 70 mm[Hg] eCW1 ([facility]) Body weight 198 [lb_av] 198 [lb_av] eCW1 ([facility]) Body height 63.5 [in_i] 63.5 [in_i] eCW1 ([facility]) Body mass index (BMI) [Ratio] 34.52 kg/m2 34.52 kg/m2 eCW1 ([facility]) Heart rate 72 /min 72 /min eCW1 ([facility]) Respiratory rate 20 /min 20 /min eCW1 ([facility]ly [facility]) Body temperature 98.4 [degF] 98.4 [degF] eCW1 ( [facility]) Systolic blood pressure 130 mm[Hg] 130 mm[Hg] e CW1 ([facility]) Diastolic blood pressure 60 mm[Hg] 60 mm[Hg] eCW1 ([facility]) Body height 63.5 [in_i] 63.5 [in_i] eCW1 ([facility]) Body mass index (BMI) [Ratio] 29.29 kg/m2 29.29 kg/m2 eCW1 ([facility]) Body weight 168 [lb_av] 168 [lb_av] eCW1 ([facility]) Heart rate 88 /min 88 /min eCW1 ([facility]) Respiratory rate 20 /min 20 /min eCW1 ([facility]ly [facility]) Body temperature [degF] eCW1 ([facility]) Systolic blood pressure 122 mm[Hg] 122 mm[Hg] e CW1 ([facility]) Diastolic blood pressure 60 mm[Hg] 60 mm[Hg] eCW1 ([facility]) Body height 62 [in_i] 62 [in_i] MEDENT ([facility]) 5'2" Body weight 172.00 [lb_av] 172.00 [lb_av] MEDEN T ([facility]) Body mass index (BMI) [Ratio] 31.5 kg/m2 31.5 k g/m2 [facility] ([facility]) Systolic blood pressure 138 mm[Hg] 138 mm[Hg] M EDENT ([facility]) Diastolic blood pressure 70 mm[Hg] 70 mm[Hg] [facility] ([facility]) [place] body weight 110 [lb_av] 110 [lb_av] MEDEN T ([facility]) Body weight 78.019 kg 78.019 kg MEDENT ([facility]) Body surface area Derived from formula 1.79 m2 1.79 m2 [facility] ([facility]) Diastolic blood pressure 72 mm[Hg] 72 mm[Hg] [facility] ([facility]) Systolic blood pressure 140 mm[Hg] 140 mm[facility]Hg] [facility] Body mass index (BMI) [Ratio] 40.7 kg/m2 40.7 k g/m2 [facility] ([facility]) Body height 54.5 [in_i] 54.5 [in_i] MEDENT ([facility]) 4'6.50" Body weight 172.00 [lb_av] 172.00 [lb_av] MEDEN T ([facility]) Body weight 78.019 kg 78.019 kg [facility]) [place] body weight 100 [lb_av] 100 [lb_av] MEDEN T ([facility]) Body surface area Derived from formula 1.63 m2 1.63 m2 [facility] ([facility]) Body weight 175 [lb_av] 175 [lb_av] eCW1 ([facility]) Body height 63.5 [in_i] 63.5 [in_i] eCW1 ([facility]) Body mass index (BMI) [Ratio] 30.51 kg/m2 30.51 kg/m2 eCW1 ([facility]) Heart rate 56 /min 56 /min eCW1 ([facility]) Respiratory rate 18 /min 18 /min eCW1 ([facility]ly [facility]) Body temperature 96.2 [degF] 96.2 [degF] eCW1 ( [facility]) Systolic blood pressure 98 mm[Hg] 98 mm[Hg] e CW1 ([facility]) Diastolic blood pressure 58 mm[Hg] 58 mm[Hg] eCW1 ([facility]) Systolic blood pressure 110 mm[Hg] 110 mm[Hg] M EDENT ([facility], ) Diastolic blood pressure 58 mm[Hg] 58 mm[Hg] MEDENT ([facility], ) Body height 54.5 [in_i] 54.5 [in_i] MEDENT ([facility], ) 4'6.50" Body weight 170.00 [lb_av] 170.00 [lb_av] MEDEN T ([facility], ) Body mass index (BMI) [Ratio] 40.2 kg/m2 40.2 k g/m2 [facility], ) [place] body weight 100 [lb_av] 100 [lb_av] MEDEN T ([facility], ) Body weight 77.112 kg 77.112 [facility] Body surface area Derived from formula 1.62 m2 1.62 m2 [facility] ([facility], ) Systolic blood pressure 140 mm[Hg] 140 mm[Hg] [facility] Diastolic blood pressure 70 mm[Hg] 70 mm[Hg] [facility] Heart rate 66 /min 66 /min [facility] Body height 160 cm 160 cm [facility] Body weight 75.297 kg 75.297 kg [facility] Body mass index (BMI) [Ratio] 29.41 kg/m2 29.41 kg/m2 [facility] Oxygen saturation in Arterial blood by Pulse oximetry 97 % 97 % [facility] Body temperature 96.3 [degF] 96.3 [degF] eCW1 ( [facility]) Diastolic blood pressure 66 mm[Hg] 66 mm[Hg] eCW1 ([facility]) Body weight 166 [lb_av] 166 [lb_av] eCW1 ([facility]) Body height 63.5 [in_i] 63.5 [in_i] eCW1 ([facility]) Body mass index (BMI) [Ratio] 28.94 kg/m2 28.94 kg/m2 eCW1 ([facility]) Systolic blood pressure 140 mm[Hg] 140 mm[Hg] e CW1 ([facility]) Heart rate 79 /min 79 /min eCW1 ([facility]) Respiratory rate 18 /min 18 /min eCW1 ([facility]ly [facility]) Diastolic blood pressure 98 mm[Hg] 98 mm[Hg] MEDENT ([facility], [facility]) states she took her medication this morn ing Heart rate 74 /min 74 /min MEDENT ([facility], [facility]) Oxygen saturation in Arterial blood by Pulse oximetry 99 % 99 % MEDENT ([facility]) Body temperature 97.9 [degF] 97.9 [degF] MEDENT ([facility], [facility]) Body weight 184.00 [lb_av] 184.00 [lb_av] MEDEN T ([facility], [facility]) Body height 65 [in_i] 65 [in_i] MEDENT ([facility]) 5'5" Body mass index (BMI) [Ratio] 30.6 kg/m2 30.6 k g/m2 MEDENT ([facility], [facility]) Systolic blood pressure 196 mm[Hg] 196 mm[Hg] M EDENT ([facility]) states she took her medication this morn ing Patient Treatment Plan of Care Planned Activity Planned Date Details Description Data Source (s) Levothyroxine Sodium 0.075 MG Oral Tablet 12/13/2020 12:00:00 AM ED T eCW1 ([facility]) Levothyroxine Sodium 0.075 MG Oral Tablet 12/13/2020 12:00:00 AM ED T eCW1 ([facility]) Levothyroxine Sodium 0.075 MG Oral Tablet 12/13/2020 12:00:00 AM ED T eCW1 ([facility]) duloxetine 60 MG Delayed Release Oral Capsule 12/12/2020 12:00:00 A M EDT eCW1 ([facility]) duloxetine 60 MG Delayed Release Oral Capsule 12/12/2020 12:00:00 A M EDT eCW1 ([facility]) duloxetine 60 MG Delayed Release Oral Capsule 12/12/2020 12:00:00 A M EDT eCW1 ([facility]) duloxetine 60 MG Delayed Release Oral Capsule 12/12/2020 12:00:00 A M EDT eCW1 ([facility]) Acetaminophen 325 MG / Hydrocodone Bitartrate 7.5 MG O ral Tablet 12/01/2020 12:00:00 AM EDT eCW1 ([facility]) Triamcinolone Acetonide 1 MG/ML Topical Cream 10/11/2020 12:00:00 A M EDT eCW1 ([facility]) Triamcinolone Acetonide 1 MG/ML Topical Cream 10/11/2020 12:00:00 A M EDT eCW1 ([facility]) Triamcinolone Acetonide 1 MG/ML Topical Cream 10/11/2020 12:00:00 A M EDT eCW1 ([facility]) Levothyroxine Sodium 0.05 MG Oral Tablet 10/04/2020 12:00:00 AM EDT eCW1 ([facility]) Levothyroxine Sodium 0.05 MG Oral Tablet 10/04/2020 12:00:00 AM EDT eCW1 ([facility]) Levothyroxine Sodium 0.05 MG Oral Tablet 10/04/2020 12:00:00 AM EDT eCW1 ([facility]) Acetaminophen 325 MG / Hydrocodone Bitartrate 7.5 MG O ral Tablet 10/03/2020 12:00:00 AM EDT eCW1 ([facility]) Acetaminophen 325 MG / Hydrocodone Bitartrate 7.5 MG O ral Tablet 10/03/2020 12:00:00 AM EDT eCW1 ([facility]) Acetaminophen 325 MG / Hydrocodone Bitartrate 7.5 MG O ral Tablet 10/03/2020 12:00:00 AM EDT eCW1 ([facility]) Acetaminophen 325 MG / Hydrocodone Bitartrate 7.5 MG O ral Tablet 10/03/2020 12:00:00 AM EDT eCW1 ([facility]) Acetaminophen 325 MG / Hydrocodone Bitartrate 7.5 MG O ral Tablet 10/03/2020 12:00:00 AM EDT eCW1 ([facility]) Acetaminophen 325 MG / Hydrocodone Bitartrate 7.5 MG O ral Tablet 10/03/2020 12:00:00 AM EDT eCW1 ([facility]) Acetaminophen 325 MG / Hydrocodone Bitartrate 7.5 MG O ral Tablet 10/03/2020 12:00:00 AM EDT eCW1 ([facility]) Acetaminophen 325 MG / Hydrocodone Bitartrate 7.5 MG O ral Tablet 10/03/2020 12:00:00 AM EDT eCW1 ([facility]) Amlodipine 2.5 MG Oral Tablet 09/30/2020 12:00:00 AM EDT eCW1 ([facility]) Amlodipine 2.5 MG Oral Tablet 09/30/2020 12:00:00 AM EDT eCW1 ([facility]) Amlodipine 2.5 MG Oral Tablet 09/30/2020 12:00:00 AM EDT [facility] Amlodipine 2.5 MG Oral Tablet 09/30/2020 12:00:00 AM EDT eCW1 ([facility]) Amlodipine 2.5 MG Oral Tablet 09/30/2020 12:00:00 AM EDT eCW1 ([facility]) Amlodipine 2.5 MG Oral Tablet 09/30/2020 12:00:00 AM EDT eCW1 ([facility]) Acetaminophen 325 MG / Hydrocodone Bitartrate 7.5 MG O ral Tablet 09/12/2020 12:00:00 AM EDT eCW1 ([facility]) Acetaminophen 325 MG / Hydrocodone Bitartrate 7.5 MG O ral Tablet 09/12/2020 12:00:00 AM EDT eCW1 ([facility]) Acetaminophen 325 MG / Hydrocodone Bitartrate 7.5 MG O ral Tablet 09/12/2020 12:00:00 AM EDT eCW1 ([facility]) Acetaminophen 325 MG / Hydrocodone Bitartrate 7.5 MG O ral Tablet 09/12/2020 12:00:00 AM EDT eCW1 ([facility]) Hospital bed _ 08/22/2020 12:00:00 AM EDT eCW1 ([facility]) Hospital bed _ 08/22/2020 12:00:00 AM EDT eCW1 ([facility]) Hospital bed _ 08/22/2020 12:00:00 AM EDT eCW1 ([facility]) Hospital bed _ 08/22/2020 12:00:00 AM EDT eCW1 ([facility]) Hospital bed _ 08/22/2020 12:00:00 AM EDT eCW1 ([facility]) Hospital bed _ 08/22/2020 12:00:00 AM EDT eCW1 ([facility]) Hospital bed _ 08/22/2020 12:00:00 AM EDT eCW1 ([facility]) Hospital bed _ 08/22/2020 12:00:00 AM EDT eCW1 ([facility]) Hospital bed _ 08/22/2020 12:00:00 AM EDT eCW1 ([facility]) Acetaminophen 325 MG / Hydrocodone Bitartrate 7.5 MG O ral Tablet 08/02/2020 12:00:00 AM EDT eCW1 ([facility]) Acetaminophen 325 MG / Hydrocodone Bitartrate 7.5 MG O ral Tablet 08/02/2020 12:00:00 AM EDT eCW1 ([facility]) Blood Pressure Monitor - 07/29/2020 12:00:00 AM EDT eCW1 ([facility]) Blood Pressure Kit - 07/22/2020 12:00:00 AM EDT eCW1 ([facility]) Blood Pressure Kit - 07/22/2020 12:00:00 AM EDT eCW1 ([facility]) Blood Pressure Kit - 07/22/2020 12:00:00 AM EDT eCW1 ([facility]) Spironolactone 25 MG Oral Tablet 07/06/2020 12:00:00 AM EDT [facility] Losartan Potassium 100 MG Oral Tablet 07/06/2020 12:00:00 AM EDT [facility] empagliflozin 10 MG Oral Tablet [Jardiance] 07/05/2020 12:00:00 AM EDT eCW1 ([facility]) empagliflozin 10 MG Oral Tablet [Jardiance] 07/05/2020 12:00:00 AM EDT eCW1 ([facility]) empagliflozin 10 MG Oral Tablet [Jardiance] 07/05/2020 12:00:00 AM EDT eCW1 ([facility]) empagliflozin 10 MG Oral Tablet [Jardiance] 07/05/2020 12:00:00 AM EDT eCW1 ([facility]) empagliflozin 10 MG Oral Tablet [Jardiance] 07/05/2020 12:00:00 AM EDT eCW1 ([facility]) empagliflozin 10 MG Oral Tablet [Jardiance] 07/05/2020 12:00:00 AM EDT eCW1 ([facility]) empagliflozin 10 MG Oral Tablet [Jardiance] 07/05/2020 12:00:00 AM EDT eCW1 ([facility]) empagliflozin 10 MG Oral Tablet [Jardiance] 07/05/2020 12:00:00 AM EDT eCW1 ([facility]) empagliflozin 10 MG Oral Tablet [Jardiance] 07/05/2020 12:00:00 AM EDT eCW1 ([facility]) empagliflozin 10 MG Oral Tablet [Jardiance] 07/05/2020 12:00:00 AM EDT eCW1 ([facility]) empagliflozin 10 MG Oral Tablet [Jardiance] 07/05/2020 12:00:00 AM EDT eCW1 ([facility]) empagliflozin 25 MG Oral Tablet [Jardiance] 07/05/2020 12:00:00 AM EDT eCW1 ([facility]) empagliflozin 25 MG Oral Tablet [Jardiance] 07/05/2020 12:00:00 AM EDT eCW1 ([facility]) empagliflozin 10 MG Oral Tablet [Jardiance] 07/05/2020 12:00:00 AM EDT eCW1 ([facility]) empagliflozin 10 MG Oral Tablet [Jardiance] 07/05/2020 12:00:00 AM EDT eCW1 ([facility]) torsemide 10 MG Oral Tablet 06/08/2020 12:00:00 AM EDT [facility] Losartan Potassium 50 MG Oral Tablet 06/08/2020 12:00:00 AM EDT [facility] Acetaminophen 325 MG / Hydrocodone Bitartrate 5 MG Ora l Tablet 06/07/2020 12:00:00 AM EDT eCW1 ([facility]) Acetaminophen 325 MG / Hydrocodone Bitartrate 5 MG Ora l Tablet 06/07/2020 12:00:00 AM EDT eCW1 ([facility]) Acetaminophen 325 MG / Hydrocodone Bitartrate 5 MG Ora l Tablet 06/07/2020 12:00:00 AM EDT eCW1 ([facility]) Acetaminophen 325 MG / Hydrocodone Bitartrate 5 MG Ora l Tablet 06/07/2020 12:00:00 AM EDT eCW1 ([facility]) Acetaminophen 325 MG / Hydrocodone Bitartrate 5 MG Ora l Tablet 06/07/2020 12:00:00 AM EDT eCW1 ([facility]) Acetaminophen 325 MG / Hydrocodone Bitartrate 5 MG Ora l Tablet 06/07/2020 12:00:00 AM EDT eCW1 ([facility]) Acetaminophen 325 MG / Hydrocodone Bitartrate 5 MG Ora l Tablet 06/07/2020 12:00:00 AM EDT eCW1 ([facility]) 24 HR Metformin hydrochloride 500 MG Extended Release Oral Tablet 06/07/2020 12:00:[address] [facility] empagliflozin 10 MG Oral Tablet [Jardiance] 06/07/2020 12:00:00 AM EDT [facility] Levothyroxine Sodium 0.025 MG Oral Tablet 06/03/2020 12:00:00 AM ED T eCW1 ([facility]) Levothyroxine Sodium 0.025 MG Oral Tablet 06/03/2020 12:00:00 AM ED T eCW1 ([facility]) Levothyroxine Sodium 0.025 MG Oral Tablet 06/03/2020 12:00:00 AM ED T eCW1 ([facility]) Levothyroxine Sodium 0.025 MG Oral Tablet 06/03/2020 12:00:00 AM ED T eCW1 ([facility]) Levothyroxine Sodium 0.025 MG Oral Tablet 06/03/2020 12:00:00 AM ED T eCW1 ([facility]) Levothyroxine Sodium 0.025 MG Oral Tablet 06/03/2020 12:00:00 AM ED T eCW1 ([facility]) Levothyroxine Sodium 0.025 MG Oral Tablet 06/03/2020 12:00:00 AM ED T eCW1 ([facility]) Levothyroxine Sodium 0.025 MG Oral Tablet 06/03/2020 12:00:00 AM ED T eCW1 ([facility]) Levothyroxine Sodium 0.025 MG Oral Tablet 06/03/2020 12:00:00 AM ED T eCW1 ([facility]) Levothyroxine Sodium 0.025 MG Oral Tablet 06/03/2020 12:00:00 AM ED T eCW1 ([facility]) Losartan Potassium 50 MG Oral Tablet 05/17/2020 12:00:00 AM EDT eCW1 ([facility]) Losartan Potassium 50 MG Oral Tablet 05/17/2020 12:00:00 AM EDT eCW1 ([facility]) Losartan Potassium 50 MG Oral Tablet 05/17/2020 12:00:00 AM EDT eCW1 ([facility]) Losartan Potassium 50 MG Oral Tablet 05/17/2020 12:00:00 AM EDT eCW1 ([facility]) Losartan Potassium 100 MG Oral Tablet 05/17/2020 12:00:00 AM EDT eCW1 ([facility]) Losartan Potassium 100 MG Oral Tablet 05/17/2020 12:00:00 AM EDT eCW1 ([facility]) Losartan Potassium 100 MG Oral Tablet 05/17/2020 12:00:00 AM EDT eCW1 ([facility]) Losartan Potassium 100 MG Oral Tablet 05/17/2020 12:00:00 AM EDT eCW1 ([facility]) Losartan Potassium 100 MG Oral Tablet 05/17/2020 12:00:00 AM EDT eCW1 ([facility]) Losartan Potassium 100 MG Oral Tablet 05/17/2020 12:00:00 AM EDT eCW1 ([facility]) Losartan Potassium 100 MG Oral Tablet 05/17/2020 12:00:00 AM EDT eCW1 ([facility]) Losartan Potassium 50 MG Oral Tablet 05/17/2020 12:00:00 AM EDT [facility] Losartan Potassium 100 MG Oral Tablet 05/17/2020 12:00:00 AM EDT eCW1 ([facility]) Losartan Potassium 100 MG Oral Tablet 05/17/2020 12:00:00 AM EDT eCW1 ([facility]) Acetaminophen 325 MG / Hydrocodone Bitartrate 5 MG Ora l Tablet 05/12/2020 12:00:00 AM EDT eCW1 ([facility]) empagliflozin 10 MG Oral Tablet [Jardiance] 04/21/2020 12:00:00 AM EST eCW1 ([facility]) empagliflozin 10 MG Oral Tablet [Jardiance] 04/21/2020 12:00:00 AM EST eCW1 ([facility]) empagliflozin 10 MG Oral Tablet [Jardiance] 04/21/2020 12:00:00 AM EST eCW1 ([facility]) empagliflozin 10 MG Oral Tablet [Jardiance] 04/21/2020 12:00:00 AM EST eCW1 ([facility]) empagliflozin 10 MG Oral Tablet [Jardiance] 04/21/2020 12:00:00 AM EST eCW1 ([facility]) carvedilol 6.25 MG Oral Tablet 04/15/2020 12:00:00 AM EST [facility] Acetaminophen 325 MG / Hydrocodone Bitartrate 5 MG Ora l Tablet 04/11/2020 12:00:00 AM EST eCW1 ([facility]) Acetaminophen 325 MG / Hydrocodone Bitartrate 5 MG Ora l Tablet 04/11/2020 12:00:00 AM EST eCW1 ([facility]) Acetaminophen 325 MG / Hydrocodone Bitartrate 5 MG Ora l Tablet 04/11/2020 12:00:00 AM EST eCW1 ([facility]) Acetaminophen 325 MG / Hydrocodone Bitartrate 5 MG Ora l Tablet 04/11/2020 12:00:00 AM EST eCW1 ([facility]) Acetaminophen 325 MG / Hydrocodone Bitartrate 5 MG Ora l Tablet 04/11/2020 12:00:00 AM EST eCW1 ([facility]) Acetaminophen 325 MG / Hydrocodone Bitartrate 5 MG Ora l Tablet 04/11/2020 12:00:00 AM EST eCW1 ([facility]) Acetaminophen 325 MG / Hydrocodone Bitartrate 5 MG Ora l Tablet 04/11/2020 12:00:00 AM EST eCW1 ([facility]) Amlodipine 2.5 MG Oral Tablet 04/04/2020 12:00:00 AM EST [facility] Amlodipine 2.5 MG Oral Tablet 04/04/2020 12:00:00 AM EST eCW1 ([facility]) Amlodipine 2.5 MG Oral Tablet 04/04/2020 12:00:00 AM EST eCW1 ([facility]) Amlodipine 2.5 MG Oral Tablet 04/04/2020 12:00:00 AM EST eCW1 ([facility]) Amlodipine 2.5 MG Oral Tablet 04/04/2020 12:00:00 AM EST eCW1 ([facility]) Amlodipine 2.5 MG Oral Tablet 04/04/2020 12:00:00 AM EST eCW1 ([facility]) Amlodipine 2.5 MG Oral Tablet 04/04/2020 12:00:00 AM EST eCW1 ([facility]) Amlodipine 2.5 MG Oral Tablet 04/04/2020 12:00:00 AM EST eCW1 ([facility]) Amlodipine 2.5 MG Oral Tablet 04/04/2020 12:00:00 AM EST eCW1 ([facility]) Amlodipine 2.5 MG Oral Tablet 04/04/2020 12:00:00 AM EST eCW1 ([facility]) Potassium Chloride 10 MEQ Extended Release Oral Tablet 04/02/2020 12:00:[address] [facility] 24 HR Metformin hydrochloride 500 MG Extended Release Oral Tablet 03/19/2020 12:00:[address] [facility] Sucralfate 1000 MG Oral Tablet 03/08/2020 12:00:00 AM EST [facility] Sucralfate 1000 MG Oral Tablet [Carafate] 03/08/2020 12:00:00 AM ES T eCW1 ([facility]) Sucralfate 1000 MG Oral Tablet [Carafate] 03/08/2020 12:00:00 AM ES T eCW1 ([facility]) Sucralfate 1000 MG Oral Tablet [Carafate] 03/08/2020 12:00:00 AM ES T eCW1 ([facility]) Sucralfate 1000 MG Oral Tablet [Carafate] 03/08/2020 12:00:00 AM ES T eCW1 ([facility]) Sucralfate 1000 MG Oral Tablet [Carafate] 03/08/2020 12:00:00 AM ES T eCW1 ([facility]) Sucralfate 1000 MG Oral Tablet [Carafate] 03/08/2020 12:00:00 AM ES T eCW1 ([facility]) Acetaminophen 325 MG / Hydrocodone Bitartrate 5 MG Ora l Tablet 02/25/2020 12:00:00 AM EST eCW1 ([facility]) Acetaminophen 325 MG / Hydrocodone Bitartrate 5 MG Ora l Tablet 02/25/2020 12:00:00 AM EST eCW1 ([facility]) Acetaminophen 325 MG / Hydrocodone Bitartrate 5 MG Ora l Tablet 02/25/2020 12:00:00 AM EST eCW1 ([facility]) torsemide 10 MG Oral Tablet 02/24/2020 12:00:00 AM EST eCW1 ([facility]) torsemide 10 MG Oral Tablet 02/24/2020 12:00:00 AM EST eCW1 ([facility]) torsemide 10 MG Oral Tablet 02/24/2020 12:00:00 AM EST eCW1 ([facility]) torsemide 10 MG Oral Tablet 02/24/2020 12:00:00 AM EST eCW1 ([facility]) torsemide 20 MG Oral Tablet 02/24/2020 12:00:00 AM EST eCW1 ([facility]) torsemide 20 MG Oral Tablet 02/24/2020 12:00:00 AM EST eCW1 ([facility]) torsemide 20 MG Oral Tablet 02/24/2020 12:00:00 AM EST eCW1 ([facility]) torsemide 20 MG Oral Tablet 02/24/2020 12:00:00 AM EST eCW1 ([facility]) torsemide 20 MG Oral Tablet 02/24/2020 12:00:00 AM EST eCW1 ([facility]) torsemide 20 MG Oral Tablet 02/24/2020 12:00:00 AM EST eCW1 ([facility]) torsemide 20 MG Oral Tablet 02/24/2020 12:00:00 AM EST eCW1 ([facility]) torsemide 20 MG Oral Tablet 02/24/2020 12:00:00 AM EST eCW1 ([facility]) torsemide 20 MG Oral Tablet 02/24/2020 12:00:00 AM EST eCW1 ([facility]) torsemide 20 MG Oral Tablet 02/24/2020 12:00:00 AM EST eCW1 ([facility]) torsemide 20 MG Oral Tablet 02/24/2020 12:00:00 AM EST eCW1 ([facility]) torsemide 20 MG Oral Tablet 02/24/2020 12:00:00 AM EST eCW1 ([facility]) torsemide 20 MG Oral Tablet 02/24/2020 12:00:00 AM EST eCW1 ([facility]) torsemide 20 MG Oral Tablet 02/24/2020 12:00:00 AM EST eCW1 ([facility]) torsemide 20 MG Oral Tablet 02/24/2020 12:00:00 AM EST eCW1 ([facility]) torsemide 20 MG Oral Tablet 02/24/2020 12:00:00 AM EST eCW1 ([facility]) torsemide 20 MG Oral Tablet 02/24/2020 12:00:00 AM EST eCW1 ([facility]) torsemide 20 MG Oral Tablet 02/24/2020 12:00:00 AM EST eCW1 ([facility]) torsemide 20 MG Oral Tablet 02/24/2020 12:00:00 AM EST eCW1 ([facility]) torsemide 20 MG Oral Tablet 02/24/2020 12:00:00 AM EST eCW1 ([facility]) Walker - 02/15/2020 12:00:00 AM EST e CW1 ([facility]) Walker - 02/15/2020 12:00:00 AM EST e CW1 ([facility]) Walker - 02/15/2020 12:00:00 AM EST e CW1 ([facility]) Test Strips - 02/09/2020 12:00:00 AM EST eCW1 ([facility]) Test Strips - 02/09/2020 12:00:00 AM EST eCW1 ([facility]) Test Strips - 02/09/2020 12:00:00 AM EST eCW1 ([facility]) Test Strips - 02/09/2020 12:00:00 AM EST eCW1 ([facility]) Test Strips - 02/09/2020 12:00:00 AM EST eCW1 ([facility]) Test Strips - 02/09/2020 12:00:00 AM EST eCW1 ([facility]) 3 ML insulin detemir 100 UNT/ML Pen Injector [Levemir] 02/03/2020 12:00:00 AM EST eCW1 ([facility]) 3 ML insulin detemir 100 UNT/ML Pen Injector [Levemir] 02/03/2020 12:00:00 AM EST eCW1 ([facility]) 3 ML insulin detemir 100 UNT/ML Pen Injector [Levemir] 02/03/2020 12:00:00 AM EST eCW1 ([facility]) 3 ML insulin detemir 100 UNT/ML Pen Injector [Levemir] 02/03/2020 12:00:00 AM EST eCW1 ([facility]) 3 ML insulin detemir 100 UNT/ML Pen Injector [Levemir] 02/03/2020 12:00:00 AM EST eCW1 ([facility]) 3 ML insulin detemir 100 UNT/ML Pen Injector [Levemir] 02/03/2020 12:00:00 AM EST eCW1 ([facility]) 3 ML insulin detemir 100 UNT/ML Pen Injector [Levemir] 02/03/2020 12:00:00 AM EST eCW1 ([facility]) 3 ML insulin detemir 100 UNT/ML Pen Injector [Levemir] 02/03/2020 12:00:00 AM EST eCW1 ([facility]) 3 ML insulin detemir 100 UNT/ML Pen Injector [Levemir] 02/03/2020 12:00:00 AM EST eCW1 ([facility]) 3 ML insulin detemir 100 UNT/ML Pen Injector [Levemir] 02/03/2020 12:00:00 AM EST eCW1 ([facility]) 3 ML insulin detemir 100 UNT/ML Pen Injector [Levemir] 02/03/2020 12:00:00 AM EST eCW1 ([facility]) 3 ML insulin detemir 100 UNT/ML Pen Injector [Levemir] 02/03/2020 12:00:00 AM EST eCW1 ([facility]) 3 ML insulin detemir 100 UNT/ML Pen Injector [Levemir] 02/03/2020 12:00:00 AM EST eCW1 ([facility]) 3 ML insulin detemir 100 UNT/ML Pen Injector [Levemir] 02/03/2020 12:00:00 AM EST eCW1 ([facility]) 3 ML insulin detemir 100 UNT/ML Pen Injector [Levemir] 02/03/2020 12:00:00 AM EST eCW1 ([facility]) 3 ML insulin detemir 100 UNT/ML Pen Injector [Levemir] 02/03/2020 12:00:00 AM EST eCW1 ([facility]) 3 ML insulin detemir 100 UNT/ML Pen Injector [Levemir] 02/03/2020 12:00:00 AM EST eCW1 ([facility]) 3 ML insulin detemir 100 UNT/ML Pen Injector [Levemir] 02/03/2020 12:00:00 AM EST eCW1 ([facility]) 3 ML insulin detemir 100 UNT/ML Pen Injector [Levemir] 02/03/2020 12:00:00 AM EST eCW1 ([facility]) 3 ML insulin detemir 100 UNT/ML Pen Injector [Levemir] 02/03/2020 12:00:00 AM EST eCW1 ([facility]) 3 ML insulin detemir 100 UNT/ML Pen Injector [Levemir] 02/03/2020 12:00:00 AM EST eCW1 ([facility]) 3 ML insulin detemir 100 UNT/ML Pen Injector [Levemir] 02/03/2020 12:00:00 AM EST eCW1 ([facility]) 3 ML insulin detemir 100 UNT/ML Pen Injector [Levemir] 02/03/2020 12:00:00 AM EST eCW1 ([facility]) 3 ML insulin detemir 100 UNT/ML Pen Injector [Levemir] 02/03/2020 12:00:00 AM EST eCW1 ([facility]) 3 ML insulin detemir 100 UNT/ML Pen Injector [Levemir] 02/03/2020 12:00:00 AM EST eCW1 ([facility]) 3 ML insulin detemir 100 UNT/ML Pen Injector [Levemir] 02/03/2020 12:00:00 AM EST eCW1 ([facility]) 3 ML insulin detemir 100 UNT/ML Pen Injector [Levemir] 02/03/2020 12:00:00 AM EST eCW1 ([facility]) 3 ML insulin detemir 100 UNT/ML Pen Injector [Levemir] 02/03/2020 12:00:00 AM EST eCW1 ([facility]) 3 ML insulin detemir 100 UNT/ML Pen Injector [Levemir] 02/03/2020 12:00:00 AM EST eCW1 ([facility]) 3 ML insulin detemir 100 UNT/ML Pen Injector [Levemir] 02/03/2020 12:00:00 AM EST eCW1 ([facility]) 3 ML insulin detemir 100 UNT/ML Pen Injector [Levemir] 02/03/2020 12:00:00 AM EST eCW1 ([facility]) 3 ML insulin detemir 100 UNT/ML Pen Injector [Levemir] 02/03/2020 12:00:00 AM EST eCW1 ([facility]) 3 ML insulin detemir 100 UNT/ML Pen Injector [Levemir] 02/03/2020 12:00:00 AM EST eCW1 ([facility]) 3 ML insulin detemir 100 UNT/ML Pen Injector [Levemir] 02/03/2020 12:00:00 AM EST eCW1 ([facility]) 3 ML insulin detemir 100 UNT/ML Pen Injector [Levemir] 02/03/2020 12:00:00 AM EST eCW1 ([facility]) 3 ML insulin detemir 100 UNT/ML Pen Injector [Levemir] 02/03/2020 12:00:00 AM EST eCW1 ([facility]) 3 ML insulin detemir 100 UNT/ML Pen Injector [Levemir] 02/03/2020 12:00:00 AM EST eCW1 ([facility]) 3 ML insulin detemir 100 UNT/ML Pen Injector [Levemir] 02/03/2020 12:00:00 AM EST eCW1 ([facility]) Amlodipine 5 MG Oral Tablet 02/03/2020 12:00:00 AM EST eCW1 ([facility]) 3 ML insulin detemir 100 UNT/ML Pen Injector [Levemir] 02/03/2020 12:00:00 AM EST eCW1 ([facility]) Amlodipine 5 MG Oral Tablet 02/03/2020 12:00:00 AM EST eCW1 ([facility]) 3 ML insulin detemir 100 UNT/ML Pen Injector [Levemir] 02/03/2020 12:00:00 AM EST eCW1 ([facility]) 3 ML insulin detemir 100 UNT/ML Pen Injector [Levemir] 02/03/2020 12:00:00 AM EST eCW1 ([facility]) Amlodipine 5 MG Oral Tablet 02/03/2020 12:00:00 AM EST eCW1 ([facility]) 3 ML insulin detemir 100 UNT/ML Pen Injector [Levemir] 02/03/2020 12:00:00 AM EST eCW1 ([facility]) Amlodipine 5 MG Oral Tablet 02/03/2020 12:00:00 AM EST eCW1 ([facility]) 3 ML insulin detemir 100 UNT/ML Pen Injector [Levemir] 02/03/2020 12:00:00 AM EST eCW1 ([facility]) 3 ML insulin detemir 100 UNT/ML Pen Injector [Levemir] 02/03/2020 12:00:00 AM EST eCW1 ([facility]) Amlodipine 5 MG Oral Tablet 02/03/2020 12:00:00 AM EST eCW1 ([facility]) 3 ML insulin detemir 100 UNT/ML Pen Injector [Levemir] 02/03/2020 12:00:00 AM EST eCW1 ([facility]) Amlodipine 5 MG Oral Tablet 02/03/2020 12:00:00 AM EST eCW1 ([facility]) Hydrochlorothiazide 12.5 MG Oral Capsule 02/02/2020 12:00:00 AM EST [facility] ferrous sulfate 325 MG Delayed Release Oral Tablet 01/26/2020 12 :00:00 AM EST eCW1 ([facility]) Pen [place] 01/26/2020 12:00:00 AM EST eCW1 ([facility]) ferrous sulfate 325 MG Delayed Release Oral Tablet 01/26/2020 12 :00:00 AM EST eCW1 ([facility]) Pen [place] 01/26/2020 12:00:00 AM EST eCW1 ([facility]) ferrous sulfate 325 MG Delayed Release Oral Tablet 01/26/2020 12 :00:00 AM EST eCW1 ([facility]) Pen [place] 07/10" 01/26/2020 12:00:00 AM EST eCW1 ([facility]) Lancets - 12/07/2019 12:00:00 AM EDT e CW1 ([facility]) Lancets - 12/07/2019 12:00:00 AM EDT e CW1 ([facility]) Lancets - 12/07/2019 12:00:00 AM EDT e CW1 ([facility]) Lancets - 12/07/2019 12:00:00 AM EDT e CW1 ([facility]) Lancets - 12/07/2019 12:00:00 AM EDT e CW1 ([facility]) Lancets - 12/07/2019 12:00:00 AM EDT e CW1 ([facility]) Glucometer 12/07/2019 12:00:00 AM EDT e CW1 ([facility]) Lancets - 12/07/2019 12:00:00 AM EDT e CW1 ([facility]) Lancets - 12/07/2019 12:00:00 AM EDT e CW1 ([facility]) Lancets - 12/07/2019 12:00:00 AM EDT e CW1 ([facility]) Lancets - 12/07/2019 12:00:00 AM EDT e CW1 ([facility]) Lancets - 12/07/2019 12:00:00 AM EDT e CW1 ([facility]) Glucometer 12/07/2019 12:00:00 AM EDT e CW1 ([facility]) Lancets - 12/07/2019 12:00:00 AM EDT e CW1 ([facility]) Glucometer 12/07/2019 12:00:00 AM EDT e CW1 ([facility]) Lancets - 12/07/2019 12:00:00 AM EDT e CW1 ([facility]) Glucometer 12/07/2019 12:00:00 AM EDT e CW1 ([facility]) Glucometer 12/07/2019 12:00:00 AM EDT e CW1 ([facility]) Lancets - 12/07/2019 12:00:00 AM EDT e CW1 ([facility]) Glucometer 12/07/2019 12:00:00 AM EDT e CW1 ([facility]) Lancets - 12/07/2019 12:00:00 AM EDT e CW1 ([facility]) Glucometer 12/07/2019 12:00:00 AM EDT e CW1 ([facility]) Lancets - 12/07/2019 12:00:00 AM EDT e CW1 ([facility]) Glucometer 12/07/2019 12:00:00 AM EDT e CW1 ([facility]) Lancets - 12/07/2019 12:00:00 AM EDT e CW1 ([facility]) Acetaminophen 325 MG / Hydrocodone Bitartrate 5 MG Ora l Tablet 12/03/2019 12:00:00 AM EDT eCW1 ([facility]) Acetaminophen 325 MG / Hydrocodone Bitartrate 5 MG Ora l Tablet 12/03/2019 12:00:00 AM EDT eCW1 ([facility]) Acetaminophen 325 MG / Hydrocodone Bitartrate 5 MG Ora l Tablet 12/03/2019 12:00:00 AM EDT eCW1 ([facility]) Acetaminophen 325 MG / Hydrocodone Bitartrate 5 MG Ora l Tablet 12/03/2019 12:00:00 AM EDT eCW1 ([facility]) Acetaminophen 325 MG / Hydrocodone Bitartrate 5 MG Ora l Tablet 12/03/2019 12:00:00 AM EDT eCW1 ([facility]) Acetaminophen 325 MG / Hydrocodone Bitartrate 5 MG Ora l Tablet 12/03/2019 12:00:00 AM EDT eCW1 ([facility]) Acetaminophen 325 MG / Hydrocodone Bitartrate 5 MG Ora l Tablet 12/03/2019 12:00:00 AM EDT eCW1 ([facility]) Acetaminophen 325 MG / Hydrocodone Bitartrate 5 MG Ora l Tablet 12/03/2019 12:00:00 AM EDT eCW1 ([facility]) Acetaminophen 325 MG / Hydrocodone Bitartrate 5 MG Ora l Tablet 12/03/2019 12:00:00 AM EDT eCW1 ([facility]) Acetaminophen 325 MG / Hydrocodone Bitartrate 5 MG Ora l Tablet 12/03/2019 12:00:00 AM EDT eCW1 ([facility]) gabapentin 100 MG Oral Capsule 11/19/2019 12:00:00 AM EDT [facility] torsemide 20 MG Oral Tablet 11/19/2019 12:00:00 AM EDT [facility] potassium chloride SA (K-DUR,KLOR-CON) 10 MEQ tablet 020 12:00:00 AM EDT [facility] dapagliflozin 5 MG Oral Tablet [Farxiga] 11/10/2019 12:00:00 AM EDT [facility] 24 HR Metformin hydrochloride 500 MG Extended Release Oral Tablet 11/02/2019 12:00:[address] [facility] carvedilol 3.125 MG Oral Tablet 09/23/2019 12:00:00 AM EDT [facility] Nystatin [id number] UNT/ML Oral Suspension 07/02/2019 12:00:00 AM EDT [facility] Losartan Potassium 100 MG Oral Tablet 12/10/2018 12:00:00 AM EDT [facility] dapagliflozin 10 MG Oral Tablet [Farxiga] 10/31/2018 12:00:00 AM ED T [facility] Furosemide 20 MG Oral Tablet 06/04/2018 12:00:00 AM EDT [facility] 3 ML Insulin Glargine 100 UNT/ML Pen Injector 07/12/2017 12:00:00 A M EDT [facility] [place]-3 Acid Ethyl Esters (PRISON) 1000 MG Oral Capsule 011 12:00:00 AM T [facility]
--- NOTE | 2020-12-25 05:34 | HPEPDOC ---
[facility] Medical History & Physical Date of Admission Dec 25, 2020 Date of Service: Dec 25, 2020 Attending Physician: LUPILLO TARANGO MD History and Physical CHIEF COMPLAINT: [70 y/o female presents after a fall] HISTORY OF PRESENT ILLNESS: [This is a 70 y/o female with a pmh of cad s/p stenting, chf, hld, htn, ckd, fibromyalgia, dm2, hypothyroidism, hutchinson who presents to our ED after suffering a fall. Patient tells me that she was on her way to the bathroom ambulating with her walker when suddenly she became dizzy and her legs gave out from under her. Patient does not describe her dizziness as a room spinning sensation. Patient states that she did not pass out or hit her head. Patient denies chest pain or palpitations at the time. Patient states that after the fall, she began to experience increased pain in her left ankle and right knee. Patient states that she has not been able to walk since her fall. Patient states that other than the pain in her knee and ankle, she feels mostly fine other than some generalized pain which she blames on her fibromyalgia. Patient, at the time of my exam, denies any fevers, chills, chest pain, sob, cough, wheezing, abd pain ,n/v/d/c, dysuria, pedal edema.] PAST MEDICAL HISTORY: 1. [See HPI PAST SURGICAL HISTORY: 1. [B/l cataract removal]. 2. [Tonsillectomy]. 3. [Cardiac catheterization with stent placement 4. Cholecystectomy 5. Hysterectomy 6. Perianal fistula repair]. SOCIAL HISTORY: Tobacco use:[Former] ETOH: [Denies] FAMILY HISTORY: Reviewed - none pertinent ALLERGIES: Please see below. REVIEW OF SYSTEMS: 11 point ROS performed with pertinent positive and negatives found in the HPI. HOME MEDICATIONS: Please see below. PHYSICAL EXAMINATION: VITAL SIGNS: Please see below. GENERAL APPEARANCE: [This is a 70 y/o female who is alert and oriented to all questioning. She does not appear to be in any acute distress]. HEENT: [No mass or lesion. EOMI. No scleral icterus. Nares patent. Oral mucosa moist]. CARDIOVASCULAR: [Regular rate, rhythm. Soft murmur heard throughout the percordium]. LUNGS: [Good air flow b/l. No wheezing, rales, rhonchi]. ABDOMEN: [Soft, nontender]. MUSCULOSKELETAL: [No joint deformity noted. Left ankle is wrapped in sujey wrap.]. EXTREMITIES: [No pedal edema appreciated. Pulses intact. No overlying skin changes]. NEUROLOGICAL: [Speech clear. A+Ox3. No focal deficits]. PSYCHIATRIC: [Mood depressed. Affect appropriate]. LABORATORY DATA: See below. IMAGING: [Ankle XR: FINDINGS: Bones/joints: Normal osseous alignment. No acute fracture. No asymmetric ankle mortise widening. Fifth metatarsal base is intact. No osteochondral lesion of the talar dome. No evidence of osseous tarsal coalition. No concerning bone lesion. Well-defined plantar calcaneal spur, at the plantar aponeurosis insertion. Bones appear diffusely demineralized. Joint spaces are well maintained. Soft tissues: Diffuse soft tissue swelling is present around the ankle. IMPRESSION: Diffuse ankle soft tissue swelling, with no evidence of acute fracture. Knee XR: FINDINGS: Bones/joints: No radiographic evidence of joint effusion. Bones are aligned normally with decreased mineralization. No fracture, evidence of stress fracture or osteochondral lesion. Joint spaces are well maintained. Soft tissues: No effacement of subcutaneous soft tissue planes. Vasculature: Vascular calcifications are noted. IMPRESSION: Normal knee radiographs. Head CT: FINDINGS: Brain: Ventricles, basilar cisterns, and sulci are normal in size for age. No intracranial mass, mass effect or midline shift. No acute intracranial hemorrhage. No focal effacement of cortical sulci to indicate acute cortical infarct. Paranasal sinuses: Imaged paranasal sinuses are clear. Mastoid air cells: Mastoid air cells are normally aerated. Orbital cavity: Imaged orbits are unremarkable. Bones/joints: No calvarial fracture or destructive process. Soft tissues: Mild asymmetric right parietal extracranial scalp swelling. IMPRESSION: 1. Mild right parietal extracranial scalp swelling. 2. No underlying acute or concerning focal intracranial abnormality. CXR: FINDINGS: Lungs: Minimal left base linear scar which is unchanged from the prior study. There are no interval infiltrates. Pleural spaces: Unremarkable. No pleural effusion. No pneumothorax. Heart/Mediastinum: Unremarkable. No cardiomegaly. Diaphragm: Mild elevation of the right hemidiaphragm. Bones/joints: Unremarkable. Organs: Status post cholecystectomy. IMPRESSION: Essentially stable chest since 07/31/2020. No acute interval process is identified. CT Abd/pelvis: FINDINGS: Lungs: Minimal lingular fibro-atelectatic change. Liver: Nodular surface of the liver. Gallbladder and bile ducts: Status post cholecystectomy. Mild biliary dilation which is attributed to prior cholecystectomy and is likely physiologic. The CBD measures 11 mm with tapering to the ampulla. Pancreas: Normal. No ductal dilation. Spleen: Normal. No splenomegaly. Adrenal glands: Normal. No mass. Kidneys and ureters: There are some small left renal cysts measuring up to 11 mm which are too small to characterize. Stomach and bowel: Borderline distention of small bowel with a few air-fluid levels which is nonspecific with some associated contracted small bowel. Minimal ileus or enteritis is not excluded. Appendix: A normal appendix is seen. Intraperitoneal space: Unremarkable. No free air. No significant fluid collection. Vasculature: There is mild calcification of the abdominal aorta with extension into the iliac arteries. Lymph nodes: Unremarkable. No enlarged lymph nodes. Urinary bladder: Unremarkable as visualized. Reproductive: Status post hysterectomy. Bones/joints: Unremarkable. No acute fracture. Soft tissues: Unremarkable. IMPRESSION: 1. There has been prior cholecystectomy and hysterectomy. 2. Hepatic cirrhosis. 3. Borderline distention of a few small bowel segments in the pelvis with some air-fluid levels which is nonspecific. Minimal ileus or enteritis is not excluded. ADDENDUM REPORT 1 There is compression and superior fragmentation involving the superior endplate of L1 which is new since 02/24/2020. CTA Chest: FINDINGS: Pulmonary arteries: The main pulmonary artery measures 33 mm. No pulmonary embolism is identified. Aorta: The ascending thoracic aorta measures 35 mm. Lungs: Minimal ground-glass infiltrates in the lower lobes and minimal scattered fibro-atelectatic change. Pleural spaces: Unremarkable. No pneumothorax. No pleural effusion. Heart: Unremarkable. No cardiomegaly. No pericardial effusion. Lymph nodes: Unremarkable. No enlarged lymph nodes. Gallbladder and bile ducts: Status post cholecystectomy. Bones/joints: Collapse and prominent superior endplate irregularity and fragmentation of L1. There is slight anterior wedge configuration and patchy sclerosis involving T4-T6. Soft tissues: Unremarkable. IMPRESSION: 1. Minimal ground-glass infiltrates in the lower lobes and minimal scattered fibro-atelectatic change. 2. Status post cholecystectomy. 3. Compression and some superior endplate fragmentation of L1 which is new since 02/24/2020. 4. Otherwise negative CTA chest. No pulmonary embolism is identified. ] MICROBIOLOGY: Please see below. ASSESSMENT: [This is a 70 y/o female with a pmh of cad s/p stenting, chf, hld, htn, ckd, fibromyalgia, dm2, hypothyroidism, hutchinson who presents to our ED after suffering a fall.]. . PLAN: 1. [Dizziness - Vertigo vs. dehydration vs. deconditioning - Will give patient ivf as she admits to recent poor oral intake - Patient not currently experiencing any dizziness - Will ask pt/ot to evaluate patient. She has had several recent falls. - admit to med surg under obs 2. Hypertroponinemia - Most likely 2/2 hypertensive urgency - will give patient one dose of oral hydralazine with morning bp meds - patient not complaining of any chest pain, mi type sx at this time - ekg not showing at st segment changes 3. DM2 - continue at home basal insulin - sliding scale coverage - hypoglycemic protocol - continue gabapentin 4. CAD - continue asa 5. HTN - continue losartan, spironolactone, amlodipine 6. GERD - continue protonix, sucralfate 7. hypothyroidism - continue synthroid 8. Chronic pain/fibromyalgia - continue cymbalta, tizanidine, norco DVT prophylaxis - lovenox]. Vital Signs Vital Signs Date Time Temp Pulse Resp B/P (MAP) Pulse Ox O2 Delivery O2 Flow Rate FiO2 12/25/20 04:15 98 198/88 (124) 12/25/20 03:45 93 Room Air 12/25/20 03:30 16 12/25/20 00:44 98.1 Laboratory Data Labs 24H Laboratory Tests 2 12/25/20 00:13: Immature Granulocyte % (Auto) 0.4, Neutrophils (%) (Auto) 61.7, Lymphocytes (%) (Auto) 24.2, Monocytes (%) (Auto) 11.4H, Eosinophils (%) (Auto) 1.6, Basophils (%) (Auto) 0.7, Neutrophils # (Auto) 8.8H, Lymphocytes # (Auto) 3.4, Monocytes # (Auto) 1.6H, Eosinophils # (Auto) 0.2, Basophils # (Auto) 0.1, Nucleated Red Blood Cells % (auto) 0.0, Prothrombin Time 13.5, Prothromb Time International Ratio 0.99, Activated Partial Thromboplast Time 27.5, Anion Gap 13, Glomerular Filtration Rate 55.5, Calcium Level 10.6H, Magnesium Level 2.1, Total Bilirubin 1.0, Direct Bilirubin 0.3H, Aspartate Amino Transf (AST/SGOT) 51H, Alanine Aminotransferase (ALT/SGPT) 41, Alkaline Phosphatase 131H, Total Creatine Kinase 91, Creatine Kinase MB 5.0H, Creatine Kinase MB Relative Index 5.49H, Troponin I 0.21H, Total Protein 7.7, Albumin 3.7, Albumin/Globulin Ratio 0.9L, Thyroid Stimulating Hormone (TSH) 2.710, Free Thyroxine 1.52H 12/25/20 01:51: Total Creatine Kinase 105, Creatine Kinase MB 4.8H, Creatine Kinase MB Relative Index 4.57H, Troponin I 0.20H, CH-Uba-U-Type Natriuretic Peptide 582H 12/25/20 01:58: Coronavirus (COVID-19)(PCR) NEGATIVE, Influenza Type A (RT-PCR) NEGATIVE, Influenza Type B (RT-PCR) NEGATIVE, Respiratory Syncytial Virus (PCR) NEGATIVE CBC/BMP Laboratory Tests 12/25/20 00:13 Home Medications Scheduled Amlodipine Besylate (Amlodipine Besylate) 2.5 Mg Tablet, 2.5 MG PO DAILY Aspirin (Aspirin EC) 81 Mg Tablet.dr, 81 MG PO DAILY Atorvastatin Calcium (Atorvastatin Calcium) 20 Mg Tab, 20 MG PO DAILY Duloxetine HCl (Duloxetine HCl) 60 Mg Capsule.dr, 60 MG PO DAILY Empagliflozin (Jardiance) 10 Mg Tablet, 10 MG PO DAILY Ferrous Sulfate (Ferrous Sulfate) 325 Mg Tablet.dr, 325 MG PO DAILY Gabapentin (Gabapentin) 100 Mg Capsule, 100 MG PO BID Insulin Detemir (Levemir Flextouch) 100 Unit/1 Ml Insuln.pen, 26 UNITS SUBQ BID Insulin Human Lispro (Novolog) 100 Unit/1 Ml Vial, 1 DOSE SC TID PER SLIDING SCALE Levothyroxine Sodium (Levothyroxine Sodium) 75 Mcg Tablet, 75 MCG PO DAILY Losartan Potassium (Losartan Potassium) 50 Mg Tablet, 75 MG PO DAILY Metformin HCl (Metformin HCl ER) 500 Mg Tab.er.24h, 1,000 MG PO BID Pantoprazole Sodium (Pantoprazole Sodium) 40 Mg Tablet.dr, 40 MG PO DAILY Spironolactone (Spironolactone) 25 Mg Tablet, 25 MG PO BID Sucralfate (Sucralfate) 1 Gm Tablet, 1 GM PO TID Scheduled PRN Hydrocodone/Acetaminophen (Hydrocodone-Acetamin 7.5-325) 1 Each Tablet, 1 TAB PO TID PRN for pain Tizanidine HCl (Tizanidine HCl) 4 Mg Cap, 4 MG PO BID PRN for MUSCLE SPASMS Allergies Coded Allergies: gatifloxacin (Verified Allergy, Mild, 05/30/20) A-FIB/CHADSVASC A-FIB History Current/History of A-Fib/PAF?: No Current PO Anticoag Therapy: No SHEILA YORK Dec 25, 2020 05:34
[2020-12-25] MEDS ORDERED: **hydrALAZINE** 50 MG TAB PO ONE (06:05)
[2020-12-25] MEDS: LEVOTHYROXINE 75MCG TABLET (0.075MG) PO SCH (06:25)
[2020-12-25] MEDS: NS 1,000 ML IV SCH ×2 (06:37→10:13)
[2020-12-25] MEDS: ENOXAPARIN 30MG/0.3ML SYRINGE (J1650 PER 10MG) SC SCH (09:00)
[2020-12-25] MEDS: GABAPENTIN 100 MG CAP PO SCH ×2 (09:10→22:26)
[2020-12-25] MEDS: LEVEMIR (INSULIN DETEMIR) 1 UNITS/0.01ML SC SCH ×2 (09:10→22:21)
[2020-12-25] MEDS: DULoxetine 30MG CAPSULE (CYMBALTA) PO SCH (09:11)
[2020-12-25] MEDS: PANTOPRAZOLE 40MG TAB (PROTONIX) PO SCH (09:11)
[2020-12-25] MEDS: DOCUSATE SODIUM 100MG CAPSULE PO SCH ×2 (09:11→22:24)
[2020-12-25] MEDS: LOSARTAN 25 MG TAB PO SCH (09:11)
[2020-12-25] MEDS: SUCRALFATE 1 GM TAB PO SCH ×3 (09:11→22:24)
[2020-12-25] MEDS: FERROUS SULFATE 325MG TAB PO SCH (09:11)
[2020-12-25] MEDS: ATORVASTATIN 20 MG TAB PO SCH (09:12)
[2020-12-25] MEDS: SPIRONOLACTONE 25 MG TAB PO SCH ×2 (09:16→17:16)
[2020-12-25] MEDS: HumaLOG INSULIN (NovoLOG) PER UNIT SC SCH ×4 (09:17→21:00)
[2020-12-25 09:41] LABS: INR 1.06; PROTHROMBIN TIME 14.2 SECONDS (12.7-14.5)
[2020-12-25 09:42] LABS: PARTIAL THROMBOPLASTIN TIME 27.2 SECONDS (25.9-37.0)
[2020-12-25] MEDS: ASPIRIN 81MG ENTERIC TABLET PO SCH (10:01)
--- NOTE | 2020-12-25 12:38 | IPNPDOC ---
Text Note Date of Service The patient was seen on 12/25/20. NOTE SUBJECTIVE: -Has significant L ankle pain -Hypertensive to SBP 205, no chest pain, SOB, headache, palpitations VITAL SIGNS: Please see below. GENERAL APPEARANCE: NAD, AOx3 HEENT:NCAT, EOMI, anicteric. Nares patent. Oral mucosa moist CARDIOVASCULAR: Regular rate, rhythm. systolic murmur, loudest at LUSB LUNGS: Good air flow b/l. No wheezing, rales, rhonchi ABDOMEN: Normoactive sounds, soft, NTND MUSCULOSKELETAL:Left ankle is wrapped in sujey wrap, tender to palpation, did not perform ROM because of severe pain. Mild swelling. L knee without swelling. RLE wnl. EXTREMITIES: No pedal edema appreciated. Pulses intact. NEUROLOGICAL: Speech clear. A+Ox3. No focal deficits PSYCHIATRIC: Aox3 LABORATORY DATA: Reviewed WBC 14.2 hgb 14.1 platelets 255 na 137 Cr 1.05 proBNP 582 trop 0.21--> 0.20 IMAGING: Ankle XR: FINDINGS: Bones/joints: Normal osseous alignment. No acute fracture. No asymmetric ankle mortise widening. Fifth metatarsal base is intact. No osteochondral lesion of the talar dome. No evidence of osseous tarsal coalition. No concerning bone lesion. Well-defined plantar calcaneal spur, at the plantar aponeurosis insertion. Bones appear diffusely demineralized. Joint spaces are well maintained. Soft tissues: Diffuse soft tissue swelling is present around the ankle. IMPRESSION: Diffuse ankle soft tissue swelling, with no evidence of acute fracture. Knee XR: FINDINGS: Bones/joints: No radiographic evidence of joint effusion. Bones are aligned normally with decreased mineralization. No fracture, evidence of stress fracture or osteochondral lesion. Joint spaces are well maintained. Soft tissues: No effacement of subcutaneous soft tissue planes. Vasculature: Vascular calcifications are noted. IMPRESSION: Normal knee radiographs. Head CT: FINDINGS: Brain: Ventricles, basilar cisterns, and sulci are normal in size for age. No intracranial mass, mass effect or midline shift. No acute intracranial hemorrhage. No focal effacement of cortical sulci to indicate acute cortical infarct. Paranasal sinuses: Imaged paranasal sinuses are clear. Mastoid air cells: Mastoid air cells are normally aerated. Orbital cavity: Imaged orbits are unremarkable. Bones/joints: No calvarial fracture or destructive process. Soft tissues: Mild asymmetric right parietal extracranial scalp swelling. IMPRESSION: 1. Mild right parietal extracranial scalp swelling. 2. No underlying acute or concerning focal intracranial abnormality. CXR: FINDINGS: Lungs: Minimal left base linear scar which is unchanged from the prior study. There are no interval infiltrates. Pleural spaces: Unremarkable. No pleural effusion. No pneumothorax. Heart/Mediastinum: Unremarkable. No cardiomegaly. Diaphragm: Mild elevation of the right hemidiaphragm. Bones/joints: Unremarkable. Organs: Status post cholecystectomy. IMPRESSION: Essentially stable chest since 07/31/2020. No acute interval process is identified. CT Abd/pelvis: FINDINGS: Lungs: Minimal lingular fibro-atelectatic change. Liver: Nodular surface of the liver. Gallbladder and bile ducts: Status post cholecystectomy. Mild biliary dilation which is attributed to prior cholecystectomy and is likely physiologic. The CBD measures 11 mm with tapering to the ampulla. Pancreas: Normal. No ductal dilation. Spleen: Normal. No splenomegaly. Adrenal glands: Normal. No mass. Kidneys and ureters: There are some small left renal cysts measuring up to 11 mm which are too small to characterize. Stomach and bowel: Borderline distention of small bowel with a few air-fluid levels which is nonspecific with some associated contracted small bowel. Minimal ileus or enteritis is not excluded. Appendix: A normal appendix is seen. Intraperitoneal space: Unremarkable. No free air. No significant fluid collection. Vasculature: There is mild calcification of the abdominal aorta with extension into the iliac arteries. Lymph nodes: Unremarkable. No enlarged lymph nodes. Urinary bladder: Unremarkable as visualized. Reproductive: Status post hysterectomy. Bones/joints: Unremarkable. No acute fracture. Soft tissues: Unremarkable. IMPRESSION: 1. There has been prior cholecystectomy and hysterectomy. 2. Hepatic cirrhosis. 3. Borderline distention of a few small bowel segments in the pelvis with some air-fluid levels which is nonspecific. Minimal ileus or enteritis is not excluded. ADDENDUM REPORT 1 There is compression and superior fragmentation involving the superior endplate of L1 which is new since 02/24/2020. CTA Chest: FINDINGS: Pulmonary arteries: The main pulmonary artery measures 33 mm. No pulmonary embolism is identified. Aorta: The ascending thoracic aorta measures 35 mm. Lungs: Minimal ground-glass infiltrates in the lower lobes and minimal scattered fibro-atelectatic change. Pleural spaces: Unremarkable. No pneumothorax. No pleural effusion. Heart: Unremarkable. No cardiomegaly. No pericardial effusion. Lymph nodes: Unremarkable. No enlarged lymph nodes. Gallbladder and bile ducts: Status post cholecystectomy. Bones/joints: Collapse and prominent superior endplate irregularity and fragmentation of L1. There is slight anterior wedge configuration and patchy sclerosis involving T4-T6. Soft tissues: Unremarkable. IMPRESSION: 1. Minimal ground-glass infiltrates in the lower lobes and minimal scattered fibro-atelectatic change. 2. Status post cholecystectomy. 3. Compression and some superior endplate fragmentation of L1 which is new since 02/24/2020. 4. Otherwise negative CTA chest. No pulmonary embolism is identified. MICROBIOLOGY: Please see below. ASSESSMENT: 70 y/o W with a pmh of cad s/p stenting, chf, hld, htn, ckd, fibromyalgia, dm2, hypothyroidism, hutchinson who presents to our ED after suffering a fall and sustained a L ankle sprain. PLAN: Dizziness: Vertigo vs. dehydration vs. deconditioning -s/p ivf -Not currently experiencing any dizziness -PT/OT -remote telemetry L ankle sprain: -has severe pain, will increase her norco from 1 tab to 2tabs Q8HP for severe pain -PT/OT -Ortho for supportive bracing? recs and PT recs Slight troponinemia: Most likely 2/2 hypertensive urgency -patient not complaining of any chest pain, SOB -ekg was w/o st segment changes -pBNP was only slightly elevated, and she is euvolemic on exam DM2 -continue at home basal insulin -sliding scale coverage -hypoglycemic protocol -continue gabapentin CAD -continue asa Hypertensive urgency -Increase amlodipine from 2.5 to 10mg daily. -continue losartan, spironolactone GERD -continue protonix, sucralfate hypothyroidism -continue synthroid Chronic pain/fibromyalgia -continue cymbalta, tizanidine -On norco per above DVT prophylaxis - lovenox. VS,Fishbone, I+O VS, Fishbone, I+O Laboratory Tests 12/25/20 00:13 Vital Signs Date Time Temp Pulse Resp B/P (MAP) Pulse Ox O2 Delivery O2 Flow Rate FiO2 12/25/20 11:32 95 12/25/20 11:27 97 Room Air 12/25/20 09:34 18 12/25/20 09:16 209/88 (128) 12/25/20 00:44 98.1 DUGLAS LYONS MD Dec 25, 2020 12:38
[2020-12-25] MEDS: ACETAMINOPHEN TAB 650MG DOSE (2X325MG) PO PRN (17:21)
--- NOTE | 2020-12-25 17:29 | CR ---
CONSULTATION DATE: 12/25/2020 TIME: 3:30 p.m. CONSULTING SERVICE: Orthopedic surgery. CONSULTING PHYSICIAN: Justin Camarillo M.D. HISTORY OF PRESENT ILLNESS: This is a 70-year-old female with a left grade 1 ankle sprain after a twisting leg injury about her left ankle. She has a complicated medical history to include coronary artery disease status post stenting, congestive heart failure, hyperlipidemia, hypertension, chronic kidney disease, fibromyalgia, type 2 diabetes, hypothyroidism, who presented to the [facility] emergency department after suffering a ground level fall and twisting leg injury about her left ankle. She was going to the bathroom and felt dizzy. She was admitted by internal medicine for workup of dizziness and orthopedic surgery was consulted for left ankle pain and grade 1 left ankle sprain. PAST MEDICAL HISTORY: See above. PAST SURGICAL HISTORY: 1. Bilateral cataract removal. 2. Tonsillectomy. 3. Cardiac catheterization with stent placement. 4. Cholecystectomy. 5. Hysterectomy. 6. Perineal fistula repair. SOCIAL HISTORY: Former tobacco user. Denies alcohol use. Denies intravenous (IV) use. FAMILY HISTORY: Noncontributory, ALLERGIES: Please see hand roller's note. REVIEW OF SYSTEMS: A 14 point review of systems is negative unless noted in the history of present illness (HPI) above. PHYSICAL EXAMINATION: GENERAL: Patient was alert and oriented to person, time and place. EXTREMITIES: She had tenderness to palpation about the distal most aspect of her fibula where the anterior talofibular ligament (ATFL) and calcaneofibular ligament (CFL) insert. She had a negative anterior drawer, a negative Olena tilt with dorsiflexion and plantarflexion. However, she did have significant guarding with these testing maneuvers. She had no breaks in the skin. She was otherwise neurovascularly intact to the left lower extremity with 5/5 motor strength of the exterior hallucis longus (EHL), flexor hallucis longus (FHL), tibialis, anterior gastrocnemius and peroneal musculature. She has sensation intact light touch to the deep and superficial peroneal, sural, saphenous and tibial nerve distributions. 2+ dorsalis pedis and posterior tibial arterial pulse. Brisk capillary refill to the digits. IMAGING DATA: Radiographs demonstrate no osseous abnormalities. However, there was some significant osteopenia appreciated on the fibula and tibia. IMPRESSION: This is a 70-year-old female with a grade 1 ankle sprain and multiple medical comorbidities. PLAN: At this point in time, the patient will be immobilized for 2-3 days, until she can acquire a CAM boot or a walking boot, which will be removable. We will place her in a well-padded slab splint to the left ankle and will have the prosthetic group place a CAM boot on the patient in the next 2-3 days. She will be weightbearing as tolerated with the CAM boot for an additional 5-6 days, and then she will initiate physical therapy with proprioception training and for the ankle instability, rehabilitative protocol. She will follow up with the [facility], myself, Dr. Camarillo, on January 03, 2021, to ensure that she received the proper CAM boot and placement in physical therapy and to examine her ankle.
[2020-12-26 01:13] LABS: MAGNESIUM LEVEL 1.8 MG/DL (1.8-2.4); POTASSIUM SERUM 4.7 MEQ/L (3.5-5.1)
[2020-12-26] MEDS ORDERED: MAG SULF 1GM/100ML (MAG RUN) 1 GM in IV 1 EA IV ONE (01:15)
--- NOTE | 2020-12-26 05:39 | ECGEPIP ---
[facility] - ED Test Date: 2020-12-24 Pat Name: MARIANA SMITH Department: Room: [place] [address] Gender: Female Network Management Specialist: JEANA : 1950 Requested By: SEPIDEH Cleveland PA-C Order Number: [id number] Reading MD: Shaq Tenorio Measurements Intervals [place] Rate: 102 P: 72 HI: 130 QRS: -46 QRSD: 100 T: 133 QT: 330 QTc: 430 Interpretive Statements Sinus tachycardia Left anterior fascicular block Minimal voltage criteria for LVH, may be normal variant ( Miah product ) NSTTW ABNORMALITY(S) RATE CHANGE COMPARED TO 05/30/20 Electronically Signed on 12-26-2020 5:39:04 EDT by Shaq Tenorio
--- NOTE | 2020-12-26 05:43 | ECGEPIP ---
[facility] - ED Test Date: 2020-12-25 Pat Name: MARIANA SMITH Department: Room: [place] [address] Gender: Female [employer] Cook: JEANA : 1950 Requested By: SEPIDEH Cleveland PA-C Order Number: [id number] Reading MD: Shaq Tenorio Measurements Intervals [place] Rate: 92 P: 79 [place]: 128 QRS: -45 QRSD: 100 T: 122 QT: 380 QTc: 469 Interpretive Statements Normal sinus rhythm Left anterior fascicular block Minimal voltage criteria for LVH, may be normal variant ( Miah product ) POOR R WAVE PROGRESSION ST & T wave abnormality, consider lateral ischemia SIMILAR TO 12/24/20 Electronically Signed on 12-26-2020 5:42:52 EDT by Shaq Tenorio
[2020-12-26] MEDS: LEVOTHYROXINE 75MCG TABLET (0.075MG) PO SCH (06:00)
[2020-12-26 07:20] LABS: MEAN CORPUSCULAR HEMOGLOBIN 28.1 pg (27.0-33.0); MEAN CORPUSCULAR HGB CONC 32.5 g/dl (32.0-36.5); MEAN CORPUSCULAR VOLUME 86.6 fl (80.0-96.0); PLATELET COUNT, AUTOMATED 206 10^3/uL (150-450); RED BLOOD COUNT 4.62 10^6/uL (4.00-5.40); WHITE BLOOD COUNT 9.7 10^3/uL (4.0-10.0)
[2020-12-26 07:40] LABS: BLOOD UREA NITROGEN 15 MG/DL (7-18); CALCIUM LEVEL 9.3 MG/DL (8.8-10.2); CARBON DIOXIDE LEVEL 23 MEQ/L (21-32); CHLORIDE LEVEL 108 MEQ/L (98-107); CREATININE FOR GFR 0.77 MG/DL (0.55-1.30); GLOMERULAR FILTRATION RATE > 60.0 (>45); GLUCOSE, FASTING 195 MG/DL (70-100); MAGNESIUM LEVEL 2.1 MG/DL (1.8-2.4); POTASSIUM SERUM 4.1 MEQ/L (3.5-5.1); SODIUM LEVEL 139 MEQ/L (136-145)
[2020-12-26] MEDS: ANEXSIA, NORCO 7.5MG/325MG TABLET(HYDROCODONE/APAP) PO PRN ×3 (07:45→23:18)
[2020-12-26] MEDS: SUCRALFATE 1 GM TAB PO SCH ×3 (07:59→21:23)
[2020-12-26] MEDS: DOCUSATE SODIUM 100MG CAPSULE PO SCH ×2 (08:00→21:00)
[2020-12-26] MEDS: PANTOPRAZOLE 40MG TAB (PROTONIX) PO SCH (08:00)
[2020-12-26] MEDS: LOSARTAN 25 MG TAB PO SCH (08:00)
[2020-12-26] MEDS: FERROUS SULFATE 325MG TAB PO SCH (08:00)
[2020-12-26] MEDS: ATORVASTATIN 20 MG TAB PO SCH (08:00)
[2020-12-26] MEDS: ASPIRIN 81MG ENTERIC TABLET PO SCH (08:00)
[2020-12-26] MEDS: GABAPENTIN 100 MG CAP PO SCH ×2 (08:00→21:23)
[2020-12-26] MEDS: DULoxetine 30MG CAPSULE (CYMBALTA) PO SCH (08:01)
[2020-12-26] MEDS: ENOXAPARIN 30MG/0.3ML SYRINGE (J1650 PER 10MG) SC SCH (08:01)
[2020-12-26] MEDS: HumaLOG INSULIN (NovoLOG) PER UNIT SC SCH ×4 (08:02→21:00)
[2020-12-26] MEDS: LEVEMIR (INSULIN DETEMIR) 1 UNITS/0.01ML SC SCH ×2 (08:03→21:24)
[2020-12-26 09:19] VITALS: BP 194/85
[2020-12-26] MEDS ORDERED: LOSARTAN 25 MG TAB PO ONE (10:15)
[2020-12-26] MEDS: SPIRONOLACTONE 25 MG TAB PO SCH ×2 (10:40→16:30)
[2020-12-26 10:46] VITALS: BP 165/70
[2020-12-26 12:00] VITALS: BP 138/72
[2020-12-26] MEDS: ACETAMINOPHEN TAB 650MG DOSE (2X325MG) PO PRN (13:11)
--- NOTE | 2020-12-26 13:30 | IPNPDOC ---
Text Note Date of Service The patient was seen on 12/26/20. NOTE SUBJECTIVE: -Pain is worst with touch and movement otherwise well controlled when not moving. -No chest pain, SOB, headache, palpitations -Per night signout, had episode of NSVT? asymptomatic OBJECTIVE: VITAL SIGNS: Please see below. GENERAL APPEARANCE: NAD, AOx3 HEENT:NCAT, EOMI, anicteric. Nares patent. Oral mucosa moist CARDIOVASCULAR: Regular rate, rhythm. systolic murmur, loudest at LUSB LUNGS: Good air flow b/l. No wheezing, rales, rhonchi ABDOMEN: Normoactive sounds, soft, NTND MUSCULOSKELETAL:Left ankle is wrapped in sujey wrap, tender to palpation, did not perform ROM because of severe pain. EXTREMITIES: No pedal edema appreciated. Pulses intact. NEUROLOGICAL: Speech clear. A+Ox3. No focal deficits PSYCHIATRIC: Aox3 LABORATORY DATA: Reviewed WBC 9.7 hgb 13 Platelets 206 na 139 K 4.1 Cr 0.77 mag 2.1 IMAGING: Ankle XR: FINDINGS: Bones/joints: Normal osseous alignment. No acute fracture. No asymmetric ankle mortise widening. Fifth metatarsal base is intact. No osteochondral lesion of the talar dome. No evidence of osseous tarsal coalition. No concerning bone lesion. Well-defined plantar calcaneal spur, at the plantar aponeurosis insertion. Bones appear diffusely demineralized. Joint spaces are well maintained. Soft tissues: Diffuse soft tissue swelling is present around the ankle. IMPRESSION: Diffuse ankle soft tissue swelling, with no evidence of acute fracture. Knee XR: FINDINGS: Bones/joints: No radiographic evidence of joint effusion. Bones are aligned normally with decreased mineralization. No fracture, evidence of stress fracture or osteochondral lesion. Joint spaces are well maintained. Soft tissues: No effacement of subcutaneous soft tissue planes. Vasculature: Vascular calcifications are noted. IMPRESSION: Normal knee radiographs. Head CT: FINDINGS: Brain: Ventricles, basilar cisterns, and sulci are normal in size for age. No intracranial mass, mass effect or midline shift. No acute intracranial hemorrhage. No focal effacement of cortical sulci to indicate acute cortical infarct. Paranasal sinuses: Imaged paranasal sinuses are clear. Mastoid air cells: Mastoid air cells are normally aerated. Orbital cavity: Imaged orbits are unremarkable. Bones/joints: No calvarial fracture or destructive process. Soft tissues: Mild asymmetric right parietal extracranial scalp swelling. IMPRESSION: 1. Mild right parietal extracranial scalp swelling. 2. No underlying acute or concerning focal intracranial abnormality. CXR: FINDINGS: Lungs: Minimal left base linear scar which is unchanged from the prior study. There are no interval infiltrates. Pleural spaces: Unremarkable. No pleural effusion. No pneumothorax. Heart/Mediastinum: Unremarkable. No cardiomegaly. Diaphragm: Mild elevation of the right hemidiaphragm. Bones/joints: Unremarkable. Organs: Status post cholecystectomy. IMPRESSION: Essentially stable chest since 07/31/2020. No acute interval process is identified. CT Abd/pelvis: FINDINGS: Lungs: Minimal lingular fibro-atelectatic change. Liver: Nodular surface of the liver. Gallbladder and bile ducts: Status post cholecystectomy. Mild biliary dilation which is attributed to prior cholecystectomy and is likely physiologic. The CBD measures 11 mm with tapering to the ampulla. Pancreas: Normal. No ductal dilation. Spleen: Normal. No splenomegaly. Adrenal glands: Normal. No mass. Kidneys and ureters: There are some small left renal cysts measuring up to 11 mm which are too small to characterize. Stomach and bowel: Borderline distention of small bowel with a few air-fluid levels which is nonspecific with some associated contracted small bowel. Minimal ileus or enteritis is not excluded. Appendix: A normal appendix is seen. Intraperitoneal space: Unremarkable. No free air. No significant fluid collection. Vasculature: There is mild calcification of the abdominal aorta with extension into the iliac arteries. Lymph nodes: Unremarkable. No enlarged lymph nodes. Urinary bladder: Unremarkable as visualized. Reproductive: Status post hysterectomy. Bones/joints: Unremarkable. No acute fracture. Soft tissues: Unremarkable. IMPRESSION: 1. There has been prior cholecystectomy and hysterectomy. 2. Hepatic cirrhosis. 3. Borderline distention of a few small bowel segments in the pelvis with some air-fluid levels which is nonspecific. Minimal ileus or enteritis is not excluded. ADDENDUM REPORT 1 There is compression and superior fragmentation involving the superior endplate of L1 which is new since 02/24/2020. CTA Chest: FINDINGS: Pulmonary arteries: The main pulmonary artery measures 33 mm. No pulmonary embolism is identified. Aorta: The ascending thoracic aorta measures 35 mm. Lungs: Minimal ground-glass infiltrates in the lower lobes and minimal scattered fibro-atelectatic change. Pleural spaces: Unremarkable. No pneumothorax. No pleural effusion. Heart: Unremarkable. No cardiomegaly. No pericardial effusion. Lymph nodes: Unremarkable. No enlarged lymph nodes. Gallbladder and bile ducts: Status post cholecystectomy. Bones/joints: Collapse and prominent superior endplate irregularity and fragmentation of L1. There is slight anterior wedge configuration and patchy sclerosis involving T4-T6. Soft tissues: Unremarkable. IMPRESSION: 1. Minimal ground-glass infiltrates in the lower lobes and minimal scattered fibro-atelectatic change. 2. Status post cholecystectomy. 3. Compression and some superior endplate fragmentation of L1 which is new since 02/24/2020. 4. Otherwise negative CTA chest. No pulmonary embolism is identified. MICROBIOLOGY: Please see below. ASSESSMENT: 70 y/o W with a pmh of cad s/p stenting, chf, hld, htn, ckd, fibromyalgia, dm2, hypothyroidism, hutchinson who presents to our ED after suffering a fall and sustained a L ankle sprain. PLAN: Dizziness: Vertigo vs. dehydration vs. deconditioning -s/p ivf -Not currently experiencing any dizziness -PT/OT L ankle sprain: -has severe pain, will increase her norco from 1 tab to 2tabs Q8HP for severe pain -PT/OT, ARU consult once camboot is in place -Consulted ortho and their recs were as follows "At this point in time, the patient will be immobilized for 2-3 days, until she can acquire a CAM boot or a walking boot, which will be removable. We will place her in a well-padded slab splint to the left ankle and will have the prosthetic group place a CAM boot on the patient in the next 2-3 days. She will be weightbearing as tolerated with the CAM boot for an additional 5-6 days, and then she will initiate physical therapy with proprioception training and for the ankle instability, rehabilitative protocol." -Spoke with Aidan Nelson, pending fax of requested materials for camboot Slight troponinemia: Most likely 2/2 hypertensive urgency. downtrended -patient not complaining of any chest pain, SOB -ekg was w/o st segment changes -pBNP was only slightly elevated, and she is euvolemic on exam DM2 -continue at home basal insulin -sliding scale coverage -hypoglycemic protocol -continue gabapentin CAD -continue asa Hypertensive urgency -Increased amlodipine from 2.5 to 10mg daily. Also increasing losartan from 75 to 100mg daily HFpEF: euvolemic GERD -continue protonix, sucralfate hypothyroidism -continue synthroid Chronic pain/fibromyalgia -continue cymbalta, tizanidine -On norco per above DVT prophylaxis - lovenox. VS,Fishbone, I+O VS, Fishbone, I+O Laboratory Tests 12/26/20 00:45 12/26/20 06:55 Vital Signs Date Time Temp Pulse Resp B/P (MAP) Pulse Ox O2 Delivery O2 Flow Rate FiO2 12/26/20 09:19 97.4 96 17 194/85 (121) 99 Room Air I&O- Last 24 Hours up to 6 AM 12/26/20 06:00 Intake Total 1700 ml Balance 1700 ml DUGLAS LYONS MD Dec 26, 2020 09:58
[2020-12-26 16:00] VITALS: BP 154/67
[2020-12-26 17:15] VITALS: BP 160/73
[2020-12-26 22:00] VITALS: BP 160/75
[2020-12-27] VITALS (30 sets, daily range): BP systolic 67–185; BP diastolic 38–83
[2020-12-27] MEDS ORDERED: **hydrALAZINE** 50 MG TAB PO ONE (00:40)
[2020-12-27] MEDS: LEVOTHYROXINE 75MCG TABLET (0.075MG) PO SCH (05:43)
[2020-12-27] MEDS: ACETAMINOPHEN TAB 650MG DOSE (2X325MG) PO PRN (06:54)
--- NOTE | 2020-12-27 07:55 | ECGEPIP ---
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
[2020-12-27] MEDS: SPIRONOLACTONE 25 MG TAB PO SCH ×2 (08:50→16:27)
[2020-12-27] MEDS: HumaLOG INSULIN (NovoLOG) PER UNIT SC SCH ×4 (08:50→20:23)
[2020-12-27] MEDS: DOCUSATE SODIUM 100MG CAPSULE PO SCH ×2 (08:51→20:23)
[2020-12-27] MEDS: SUCRALFATE 1 GM TAB PO SCH ×3 (08:51→20:23)
[2020-12-27] MEDS: DULoxetine 30MG CAPSULE (CYMBALTA) PO SCH (08:52)
[2020-12-27] MEDS: ASPIRIN 81MG ENTERIC TABLET PO SCH (08:53)
[2020-12-27] MEDS: FERROUS SULFATE 325MG TAB PO SCH (08:53)
[2020-12-27] MEDS: GABAPENTIN 100 MG CAP PO SCH ×2 (08:54→20:23)
[2020-12-27] MEDS: PANTOPRAZOLE 40MG TAB (PROTONIX) PO SCH (08:54)
[2020-12-27] MEDS: ANEXSIA, NORCO 7.5MG/325MG TABLET(HYDROCODONE/APAP) PO PRN ×2 (08:58→23:39)
[2020-12-27] MEDS ORDERED: LOSARTAN 50MG TABLET PO SCH (09:00)
[2020-12-27] MEDS ORDERED: **hydrALAZINE HCL** 25 MG TAB PO SCH (09:00)
[2020-12-27] MEDS: LEVEMIR (INSULIN DETEMIR) 1 UNITS/0.01ML SC SCH ×2 (09:01→20:23)
[2020-12-27] MEDS: ENOXAPARIN 30MG/0.3ML SYRINGE (J1650 PER 10MG) SC SCH (09:01)
[2020-12-27] MEDS: ATORVASTATIN 20 MG TAB PO SCH (10:37)
[2020-12-27 13:20] LABS: HEMOGLOBIN 13.4 g/dl (12.0-15.5); MEAN CORPUSCULAR HEMOGLOBIN 28.7 pg (27.0-33.0); MEAN CORPUSCULAR HGB CONC 31.9 g/dl (32.0-36.5); MEAN CORPUSCULAR VOLUME 89.9 fl (80.0-96.0); PLATELET COUNT, AUTOMATED 235 10^3/uL (150-450); RED BLOOD COUNT 4.67 10^6/uL (4.00-5.40); WHITE BLOOD COUNT 8.8 10^3/uL (4.0-10.0)
[2020-12-27] MEDS ORDERED: NS 500 ML IV ONE ×3 (13:30→15:45)
--- NOTE | 2020-12-27 13:34 | IPNPDOC ---
Text Note Date of Service The patient was seen on 12/27/20. NOTE SUBJECTIVE: -Pain is a little bit better. Now has CAM boot, was delivered and fitted yesterday -No chest pain, SOB, headache, palpitations OBJECTIVE: VITAL SIGNS: Please see below. GENERAL APPEARANCE: NAD, AOx3 HEENT:NCAT, EOMI, anicteric. Nares patent. Oral mucosa moist CARDIOVASCULAR: Regular rate, rhythm. systolic murmur, loudest at LUSB LUNGS: Good air flow b/l. No wheezing, rales, rhonchi ABDOMEN: Normoactive sounds, soft, NTND MUSCULOSKELETAL:Left ankle in sujey wrap, tender with any ROM exercise EXTREMITIES: No pedal edema appreciated. Pulses intact. NEUROLOGICAL: Speech clear. A+Ox3. No focal deficits PSYCHIATRIC: Aox3 LABORATORY DATA: Reviewed, pending AM labs IMAGING: Ankle XR: FINDINGS: Bones/joints: Normal osseous alignment. No acute fracture. No asymmetric ankle mortise widening. Fifth metatarsal base is intact. No osteochondral lesion of the talar dome. No evidence of osseous tarsal coalition. No concerning bone lesion. Well-defined plantar calcaneal spur, at the plantar aponeurosis insertion. Bones appear diffusely demineralized. Joint spaces are well maintained. Soft tissues: Diffuse soft tissue swelling is present around the ankle. IMPRESSION: Diffuse ankle soft tissue swelling, with no evidence of acute fracture. Knee XR: FINDINGS: Bones/joints: No radiographic evidence of joint effusion. Bones are aligned normally with decreased mineralization. No fracture, evidence of stress fracture or osteochondral lesion. Joint spaces are well maintained. Soft tissues: No effacement of subcutaneous soft tissue planes. Vasculature: Vascular calcifications are noted. IMPRESSION: Normal knee radiographs. Head CT: FINDINGS: Brain: Ventricles, basilar cisterns, and sulci are normal in size for age. No intracranial mass, mass effect or midline shift. No acute intracranial hemorrhage. No focal effacement of cortical sulci to indicate acute cortical infarct. Paranasal sinuses: Imaged paranasal sinuses are clear. Mastoid air cells: Mastoid air cells are normally aerated. Orbital cavity: Imaged orbits are unremarkable. Bones/joints: No calvarial fracture or destructive process. Soft tissues: Mild asymmetric right parietal extracranial scalp swelling. IMPRESSION: 1. Mild right parietal extracranial scalp swelling. 2. No underlying acute or concerning focal intracranial abnormality. CXR: FINDINGS: Lungs: Minimal left base linear scar which is unchanged from the prior study. There are no interval infiltrates. Pleural spaces: Unremarkable. No pleural effusion. No pneumothorax. Heart/Mediastinum: Unremarkable. No cardiomegaly. Diaphragm: Mild elevation of the right hemidiaphragm. Bones/joints: Unremarkable. Organs: Status post cholecystectomy. IMPRESSION: Essentially stable chest since 07/31/2020. No acute interval process is identified. CT Abd/pelvis: FINDINGS: Lungs: Minimal lingular fibro-atelectatic change. Liver: Nodular surface of the liver. Gallbladder and bile ducts: Status post cholecystectomy. Mild biliary dilation which is attributed to prior cholecystectomy and is likely physiologic. The CBD measures 11 mm with tapering to the ampulla. Pancreas: Normal. No ductal dilation. Spleen: Normal. No splenomegaly. Adrenal glands: Normal. No mass. Kidneys and ureters: There are some small left renal cysts measuring up to 11 mm which are too small to characterize. Stomach and bowel: Borderline distention of small bowel with a few air-fluid levels which is nonspecific with some associated contracted small bowel. Minimal ileus or enteritis is not excluded. Appendix: A normal appendix is seen. Intraperitoneal space: Unremarkable. No free air. No significant fluid collection. Vasculature: There is mild calcification of the abdominal aorta with extension into the iliac arteries. Lymph nodes: Unremarkable. No enlarged lymph nodes. Urinary bladder: Unremarkable as visualized. Reproductive: Status post hysterectomy. Bones/joints: Unremarkable. No acute fracture. Soft tissues: Unremarkable. IMPRESSION: 1. There has been prior cholecystectomy and hysterectomy. 2. Hepatic cirrhosis. 3. Borderline distention of a few small bowel segments in the pelvis with some air-fluid levels which is nonspecific. Minimal ileus or enteritis is not excluded. ADDENDUM REPORT 1 There is compression and superior fragmentation involving the superior endplate of L1 which is new since 02/24/2020. CTA Chest: FINDINGS: Pulmonary arteries: The main pulmonary artery measures 33 mm. No pulmonary embolism is identified. Aorta: The ascending thoracic aorta measures 35 mm. Lungs: Minimal ground-glass infiltrates in the lower lobes and minimal scattered fibro-atelectatic change. Pleural spaces: Unremarkable. No pneumothorax. No pleural effusion. Heart: Unremarkable. No cardiomegaly. No pericardial effusion. Lymph nodes: Unremarkable. No enlarged lymph nodes. Gallbladder and bile ducts: Status post cholecystectomy. Bones/joints: Collapse and prominent superior endplate irregularity and fragmentation of L1. There is slight anterior wedge configuration and patchy sclerosis involving T4-T6. Soft tissues: Unremarkable. IMPRESSION: 1. Minimal ground-glass infiltrates in the lower lobes and minimal scattered fibro-atelectatic change. 2. Status post cholecystectomy. 3. Compression and some superior endplate fragmentation of L1 which is new since 02/24/2020. 4. Otherwise negative CTA chest. No pulmonary embolism is identified. MICROBIOLOGY: Please see below. ASSESSMENT: 70 y/o W with a pmh of cad s/p stenting, chf, hld, htn, ckd, fibromyalgia, dm2, hypothyroidism, hutchinson who presents to our ED after suffering a fall and sustained a L ankle sprain. PLAN: Dizziness: Vertigo vs. dehydration vs. deconditioning -s/p ivf, symptoms resolved. -PT/OT L ankle sprain: -2tabs norco Q8HP for severe pain -PT/OT, ARU consulted -camboot now in place, can begin therapy -Consulted ortho and their recs were as follows "She will be weightbearing as tolerated with the CAM boot for an additional 5-6 days, and then she will initiate physical therapy with proprioception training and for the ankle i nstability, rehabilitative protocol." Slight troponinemia: Most likely 2/2 hypertensive urgency. downtrended -patient not complaining of any chest pain, SOB -ekg was w/o st segment changes -pBNP was only slightly elevated, and she is euvolemic on exam DM2 -continue at home basal insulin -sliding scale coverage -hypoglycemic protocol -continue gabapentin CAD -continue asa Hypertensive urgency -Increased amlodipine from 2.5 to 10mg daily. Also increasing losartan from 75 to 100mg daily HFpEF: euvolemic GERD -continue protonix, sucralfate hypothyroidism -continue synthroid Chronic pain/fibromyalgia -continue cymbalta, tizanidine -On norco per above DVT prophylaxis - lovenox. VS,Fishbone, I+O VS, Fishbone, I+O Vital Signs Date Time Temp Pulse Resp B/P (MAP) Pulse Ox O2 Delivery O2 Flow Rate FiO2 12/27/20 08:58 16 Room Air 12/27/20 08:52 163/69 12/27/20 06:00 97.9 90 96 I&O- Last 24 Hours up to 6 AM 12/27/20 06:00 Intake Total 1560 ml Output Total 300 ml Balance 1260 ml DUGLAS LYONS MD Dec 27, 2020 09:14
[2020-12-27 13:49] LABS: CREATININE FOR GFR 1.22 MG/DL (0.55-1.30); GLOMERULAR FILTRATION RATE 46.7 (>45); POTASSIUM SERUM 4.5 MEQ/L (3.5-5.1)
[2020-12-28 06:00] VITALS: BP 158/79
[2020-12-28] MEDS: LEVOTHYROXINE 75MCG TABLET (0.075MG) PO SCH (06:05)
[2020-12-28 06:47] LABS: HEMATOCRIT 38.8 % (36.0-47.0); HEMOGLOBIN 12.8 g/dl (12.0-15.5); MEAN CORPUSCULAR HEMOGLOBIN 28.8 pg (27.0-33.0); MEAN CORPUSCULAR VOLUME 87.2 fl (80.0-96.0); PLATELET COUNT, AUTOMATED 177 10^3/uL (150-450); RED BLOOD COUNT 4.45 10^6/uL (4.00-5.40); WHITE BLOOD COUNT 7.2 10^3/uL (4.0-10.0)
[2020-12-28 07:18] LABS: BLOOD UREA NITROGEN 22 MG/DL (7-18); CARBON DIOXIDE LEVEL 23 MEQ/L (21-32); CHLORIDE LEVEL 111 MEQ/L (98-107); CREATININE FOR GFR 0.76 MG/DL (0.55-1.30); GLOMERULAR FILTRATION RATE > 60.0 (>45); GLUCOSE, FASTING 125 MG/DL (70-100); POTASSIUM SERUM 3.9 MEQ/L (3.5-5.1); SODIUM LEVEL 141 MEQ/L (136-145)
[2020-12-28] MEDS: HumaLOG INSULIN (NovoLOG) PER UNIT SC SCH ×4 (07:52→21:00)
[2020-12-28] MEDS: LEVEMIR (INSULIN DETEMIR) 1 UNITS/0.01ML SC SCH ×2 (07:53→20:55)
[2020-12-28] MEDS: FERROUS SULFATE 325MG TAB PO SCH (07:53)
[2020-12-28] MEDS: DOCUSATE SODIUM 100MG CAPSULE PO SCH ×2 (07:53→21:00)
[2020-12-28] MEDS: PANTOPRAZOLE 40MG TAB (PROTONIX) PO SCH (07:53)
[2020-12-28] MEDS: DULoxetine 30MG CAPSULE (CYMBALTA) PO SCH (07:53)
[2020-12-28] MEDS: ASPIRIN 81MG ENTERIC TABLET PO SCH (07:53)
[2020-12-28] MEDS: ENOXAPARIN 30MG/0.3ML SYRINGE (J1650 PER 10MG) SC SCH (07:54)
[2020-12-28] MEDS: ATORVASTATIN 20 MG TAB PO SCH (07:54)
[2020-12-28] MEDS: ANEXSIA, NORCO 7.5MG/325MG TABLET(HYDROCODONE/APAP) PO PRN ×2 (07:54→15:07)
[2020-12-28] MEDS ORDERED: LOSARTAN 25 MG TAB PO SCH (09:00)
[2020-12-28 09:38] VITALS: BP 162/62
[2020-12-28] MEDS: GABAPENTIN 100 MG CAP PO SCH ×2 (11:30→20:55)
[2020-12-28] MEDS: SUCRALFATE 1 GM TAB PO SCH ×3 (11:30→20:55)
[2020-12-28] MEDS: SPIRONOLACTONE 25 MG TAB PO SCH ×2 (11:30→17:53)
[2020-12-28 13:35] VITALS: BP 164/62
--- NOTE | 2020-12-28 14:24 | IPNPDOC ---
Text Note Date of Service The patient was seen on 12/28/20. NOTE SUBJECTIVE: -Pain is better. Now has CAM boot, mobility is still unsteady and needing quite a bit of assistance -No chest pain, SOB, headache, palpitations -Yesterday had episode of hypotension and lethargy 2/2/ sedating pain meds, reduced norco to 1 tab Q6H and stopped tizanidine. OBJECTIVE: VITAL SIGNS: Please see below. GENERAL APPEARANCE: NAD, AOx3 HEENT:NCAT, EOMI, anicteric. Nares patent. Oral mucosa moist CARDIOVASCULAR: Regular rate, rhythm. systolic murmur, loudest at LUSB LUNGS: Good air flow b/l. No wheezing, rales, rhonchi ABDOMEN: Normoactive sounds, soft, NTND MUSCULOSKELETAL:Left ankle in sujey wrap, and LLE in cam boot EXTREMITIES: No pedal edema appreciated. Pulses intact. NEUROLOGICAL: Speech clear. A+Ox3. No focal deficits PSYCHIATRIC: Aox3 LABORATORY DATA: Reviewed, stable IMAGING: Ankle XR: FINDINGS: Bones/joints: Normal osseous alignment. No acute fracture. No asymmetric ankle mortise widening. Fifth metatarsal base is intact. No osteochondral lesion of the talar dome. No evidence of osseous tarsal coalition. No concerning bone lesion. Well-defined plantar calcaneal spur, at the plantar aponeurosis insertion. Bones appear diffusely demineralized. Joint spaces are well maintained. Soft tissues: Diffuse soft tissue swelling is present around the ankle. IMPRESSION: Diffuse ankle soft tissue swelling, with no evidence of acute fracture. Knee XR: FINDINGS: Bones/joints: No radiographic evidence of joint effusion. Bones are aligned normally with decreased mineralization. No fracture, evidence of stress fracture or osteochondral lesion. Joint spaces are well maintained. Soft tissues: No effacement of subcutaneous soft tissue planes. Vasculature: Vascular calcifications are noted. IMPRESSION: Normal knee radiographs. Head CT: FINDINGS: Brain: Ventricles, basilar cisterns, and sulci are normal in size for age. No intracranial mass, mass effect or midline shift. No acute intracranial hemorrhage. No focal effacement of cortical sulci to indicate acute cortical infarct. Paranasal sinuses: Imaged paranasal sinuses are clear. Mastoid air cells: Mastoid air cells are normally aerated. Orbital cavity: Imaged orbits are unremarkable. Bones/joints: No calvarial fracture or destructive process. Soft tissues: Mild asymmetric right parietal extracranial scalp swelling. IMPRESSION: 1. Mild right parietal extracranial scalp swelling. 2. No underlying acute or concerning focal intracranial abnormality. CXR: FINDINGS: Lungs: Minimal left base linear scar which is unchanged from the prior study. There are no interval infiltrates. Pleural spaces: Unremarkable. No pleural effusion. No pneumothorax. Heart/Mediastinum: Unremarkable. No cardiomegaly. Diaphragm: Mild elevation of the right hemidiaphragm. Bones/joints: Unremarkable. Organs: Status post cholecystectomy. IMPRESSION: Essentially stable chest since 07/31/2020. No acute interval process is identified. CT Abd/pelvis: FINDINGS: Lungs: Minimal lingular fibro-atelectatic change. Liver: Nodular surface of the liver. Gallbladder and bile ducts: Status post cholecystectomy. Mild biliary dilation which is attributed to prior cholecystectomy and is likely physiologic. The CBD measures 11 mm with tapering to the ampulla. Pancreas: Normal. No ductal dilation. Spleen: Normal. No splenomegaly. Adrenal glands: Normal. No mass. Kidneys and ureters: There are some small left renal cysts measuring up to 11 mm which are too small to characterize. Stomach and bowel: Borderline distention of small bowel with a few air-fluid levels which is nonspecific with some associated contracted small bowel. Minimal ileus or enteritis is not excluded. Appendix: A normal appendix is seen. Intraperitoneal space: Unremarkable. No free air. No significant fluid collection. Vasculature: There is mild calcification of the abdominal aorta with extension into the iliac arteries. Lymph nodes: Unremarkable. No enlarged lymph nodes. Urinary bladder: Unremarkable as visualized. Reproductive: Status post hysterectomy. Bones/joints: Unremarkable. No acute fracture. Soft tissues: Unremarkable. IMPRESSION: 1. There has been prior cholecystectomy and hysterectomy. 2. Hepatic cirrhosis. 3. Borderline distention of a few small bowel segments in the pelvis with some air-fluid levels which is nonspecific. Minimal ileus or enteritis is not excluded. ADDENDUM REPORT 1 There is compression and superior fragmentation involving the superior endplate of L1 which is new since 02/24/2020. CTA Chest: FINDINGS: Pulmonary arteries: The main pulmonary artery measures 33 mm. No pulmonary embolism is identified. Aorta: The ascending thoracic aorta measures 35 mm. Lungs: Minimal ground-glass infiltrates in the lower lobes and minimal scattered fibro-atelectatic change. Pleural spaces: Unremarkable. No pneumothorax. No pleural effusion. Heart: Unremarkable. No cardiomegaly. No pericardial effusion. Lymph nodes: Unremarkable. No enlarged lymph nodes. Gallbladder and bile ducts: Status post cholecystectomy. Bones/joints: Collapse and prominent superior endplate irregularity and fragmentation of L1. There is slight anterior wedge configuration and patchy sclerosis involving T4-T6. Soft tissues: Unremarkable. IMPRESSION: 1. Minimal ground-glass infiltrates in the lower lobes and minimal scattered fibro-atelectatic change. 2. Status post cholecystectomy. 3. Compression and some superior endplate fragmentation of L1 which is new since 02/24/2020. 4. Otherwise negative CTA chest. No pulmonary embolism is identified. MICROBIOLOGY: Please see below. ASSESSMENT: 70 y/o W with a history of cad s/p stenting, chf, hld, htn, ckd, fibromyalgia, dm2, hypothyroidism, hutchinson who presented to our ED after suffering a fall and sustained a L ankle sprain. PLAN: Dizziness: Vertigo vs. dehydration vs. deconditioning -s/p ivf, symptoms resolved. -PT/OT L ankle sprain: -1 tab norco Q6HP for severe pain -PT/OT, ARU consulted -camboot now in place, can begin therapy -Consulted ortho and their recs were as follows "She will be weightbearing as tolerated with the CAM boot for an additional 5-6 days, and then she will initiate physical therapy with proprioception training and for the ankle instability, rehabilitative protocol." Slight troponinemia: Most likely 2/2 hypertensive urgency. downtrended -patient not complaining of any chest pain, SOB -ekg was w/o st segment changes -pBNP was only slightly elevated, and she is euvolemic on exam DM2 -continue at home basal insulin -sliding scale coverage -hypoglycemic protocol -continue gabapentin CAD -continue asa Hypertensive urgency -Increased amlodipine from 2.5 to 10mg daily. Also increasing losartan from 75 to 100mg daily HFpEF: euvolemic GERD -continue protonix, sucralfate hypothyroidism -continue synthroid Chronic pain/fibromyalgia -continue cymbalta -DC'd tizanidine -On norco per above DVT prophylaxis - lovenox. VS,Fishbone, I+O VS, Fishbone, I+O Laboratory Tests 12/28/20 06:26 Vital Signs Date Time Temp Pulse Resp B/P (MAP) Pulse Ox O2 Delivery O2 Flow Rate FiO2 12/28/20 13:35 98.1 86 18 164/62 (96) 98 Room Air I&O- Last 24 Hours up to 6 AM 12/28/20 05:59 Intake Total 1680 ml Output Total 1150 ml Balance 530 ml DUGLAS LYONS MD Dec 28, 2020 14:24
[2020-12-28] MEDS ORDERED: **hydrALAZINE** 10 MG TAB PO ONE (20:55)
[2020-12-28 22:00] VITALS: BP 186/80
[2020-12-29] VITALS (9 sets, daily range): BP systolic 92–190; BP diastolic 42–80
[2020-12-29] MEDS: ANEXSIA, NORCO 7.5MG/325MG TABLET(HYDROCODONE/APAP) PO PRN ×3 (03:39→18:03)
[2020-12-29] MEDS ORDERED: LOSARTAN 25 MG TAB PO SCH ×2 (04:45→09:00)
[2020-12-29] MEDS: LEVOTHYROXINE 75MCG TABLET (0.075MG) PO SCH (04:57)
[2020-12-29] MEDS ORDERED: LOSARTAN 25 MG TAB PO ONE (06:55)
[2020-12-29 08:07] LABS: HEMATOCRIT 40.8 % (36.0-47.0); HEMOGLOBIN 13.2 g/dl (12.0-15.5); MEAN CORPUSCULAR HEMOGLOBIN 28.5 pg (27.0-33.0); MEAN CORPUSCULAR HGB CONC 32.4 g/dl (32.0-36.5); MEAN CORPUSCULAR VOLUME 88.1 fl (80.0-96.0); PLATELET COUNT, AUTOMATED 187 10^3/uL (150-450); RED BLOOD COUNT 4.63 10^6/uL (4.00-5.40); WHITE BLOOD COUNT 7.4 10^3/uL (4.0-10.0)
[2020-12-29] MEDS: HumaLOG INSULIN (NovoLOG) PER UNIT SC SCH ×4 (08:08→21:40)
[2020-12-29] MEDS: LEVEMIR (INSULIN DETEMIR) 1 UNITS/0.01ML SC SCH ×2 (08:09→21:40)
[2020-12-29 08:34] LABS: BLOOD UREA NITROGEN 16 MG/DL (7-18); CALCIUM LEVEL 9.1 MG/DL (8.8-10.2); CARBON DIOXIDE LEVEL 22 MEQ/L (21-32); CHLORIDE LEVEL 111 MEQ/L (98-107); CREATININE FOR GFR 0.63 MG/DL (0.55-1.30); GLOMERULAR FILTRATION RATE > 60.0 (>45); GLUCOSE, FASTING 212 MG/DL (70-100); POTASSIUM SERUM 4.4 MEQ/L (3.5-5.1); SODIUM LEVEL 140 MEQ/L (136-145)
[2020-12-29] MEDS: ASPIRIN 81MG ENTERIC TABLET PO SCH (10:08)
[2020-12-29] MEDS: ENOXAPARIN 30MG/0.3ML SYRINGE (J1650 PER 10MG) SC SCH (10:08)
[2020-12-29] MEDS: DOCUSATE SODIUM 100MG CAPSULE PO SCH ×2 (10:08→21:40)
[2020-12-29] MEDS: FERROUS SULFATE 325MG TAB PO SCH (10:08)
[2020-12-29] MEDS: DULoxetine 30MG CAPSULE (CYMBALTA) PO SCH (10:08)
[2020-12-29] MEDS: ATORVASTATIN 20 MG TAB PO SCH (10:09)
[2020-12-29] MEDS: PANTOPRAZOLE 40MG TAB (PROTONIX) PO SCH (10:10)
[2020-12-29] MEDS: SUCRALFATE 1 GM TAB PO SCH ×3 (10:12→21:40)
[2020-12-29] MEDS: SPIRONOLACTONE 25 MG TAB PO SCH (10:32)
[2020-12-29] MEDS: GABAPENTIN 100 MG CAP PO SCH ×2 (10:32→21:40)
[2020-12-29] MEDS ORDERED: AMLO1TAB25 PO (10:49)
[2020-12-29] MEDS ORDERED: ATEN25TA PO (10:51)
[2020-12-29] MEDS ORDERED: **hydrALAZINE** 10 MG TAB PO PRN ×2 (10:55→18:25)
[2020-12-29] MEDS ORDERED: HYDR5TAB PO (10:58)
[2020-12-29] MEDS ORDERED: ISOS20TAB PO (10:58)
[2020-12-29] MEDS ORDERED: SELF1KIT MC (10:58)
[2020-12-29] MEDS ORDERED: atenoloL 25 MG TAB PO ONE (11:00)
[2020-12-29] MEDS: ISOSORBIDE DIN. (ISORDIL) 20 MG TAB PO SCH ×2 (12:44→17:00)
[2020-12-29] MEDS ORDERED: NS 1,000 ML IV ONE (13:35)
--- NOTE | 2020-12-29 14:36 | IPN ---
PROGRESS NOTE DATE: 12/29/2020 SUBJECTIVE: Patient denies any lightheadedness, dizziness, chest pain, pressure or tightness, headache or changes in vision. Patient's blood pressure is 173 systolic. OBJECTIVE: Vital signs: Temperature 98, pulse 83, respiratory rate 18, blood pressure 173/79, 98% on room air. General: Awake, alert, oriented times 3, answering questions appropriately. Lungs: Clear to auscultation, no wheezes, rhonchi or rales. Heart: S1 and S2 sinus rhythm. Abdomen: Soft, nontender, nondistended, positive bowel sounds. Extremities: Left ankle in an REGINALDO wrap. Left lower extremity in CAM boot. No pitting edema. LABORATORY DATA/IMAGING STUDIES: Reviewed. IMPRESSIONS/PLAN: 1. Hypertension, uncontrolled: Patient had episodes of low blood pressure and high blood pressure, was given 100 mg of losartan, spironolactone 25 twice a day this morning, had low blood pressure yesterday and required 500 mL normal saline bolus, on calcium channel jennifer and hydralazine. Due to uncontrolled blood pressure and persistent vertigo patient's losartan and spironolactone have been discontinued. She will be placed only on isosorbide and hydralazine to be titrated for better blood pressure control with hopes to prevent hypotension. 2. Left ankle sprain: Jasper as needed. PT/OT has been consulted. 3. Troponin leak due to hypertensive urgency: Improved. 4. Type-2 diabetes: On basal home insulin 50 units and gabapentin. 5. Heart failure with preserved systolic function: Euvolemic. 6. Hypothyroidism: On Synthroid. 7. Reflux: On Protonix and Carafate. 8. Chronic pain: On Cymbalta. 9. Disposition: May discharge home today if his blood pressure is controlled and does well with physical therapy. Home with services. If not titrate medications overnight and discharge in the morning. GLORIA
[2020-12-29] MEDS ORDERED: ANALGESIC BALM CRM 3OZ TOP PRN (18:10)
[2020-12-30 06:00] VITALS: BP 168/70
[2020-12-30] MEDS: ISOSORBIDE DIN. (ISORDIL) 20 MG TAB PO SCH (06:02)
[2020-12-30] MEDS: LEVOTHYROXINE 75MCG TABLET (0.075MG) PO SCH (06:02)
[2020-12-30] MEDS: ANEXSIA, NORCO 7.5MG/325MG TABLET(HYDROCODONE/APAP) PO PRN ×2 (06:02→08:32)
[2020-12-30 06:15] LABS: HEMATOCRIT 36.8 % (36.0-47.0); MEAN CORPUSCULAR HEMOGLOBIN 28.4 pg (27.0-33.0); MEAN CORPUSCULAR HGB CONC 32.6 g/dl (32.0-36.5); PLATELET COUNT, AUTOMATED 177 10^3/uL (150-450); RED BLOOD COUNT 4.23 10^6/uL (4.00-5.40); WHITE BLOOD COUNT 6.4 10^3/uL (4.0-10.0)
[2020-12-30 06:30] LABS: BLOOD UREA NITROGEN 17 MG/DL (7-18); CALCIUM LEVEL 9.1 MG/DL (8.8-10.2); CARBON DIOXIDE LEVEL 23 MEQ/L (21-32); CHLORIDE LEVEL 111 MEQ/L (98-107); CREATININE FOR GFR 0.62 MG/DL (0.55-1.30); GLOMERULAR FILTRATION RATE > 60.0 (>45); GLUCOSE, FASTING 165 MG/DL (70-100); SODIUM LEVEL 142 MEQ/L (136-145)
[2020-12-30] MEDS ORDERED: HYDR-4514 PO (07:22)
--- NOTE | 2020-12-30 07:33 | DS.PDOC ---
Discharge Summary General Date of Admission Dec 25, 2020 Date of Discharge 12/30/20 Discharge Summary addendum to discharge summary: [facility] consultant: orthopedic surgeon Dr. Camarillo Discharge instructions: pcp and cardiology fu appt within 5 days for hypertensive urgency for med adjustment pt to keep a journal w qid bp check and meds taken. fu w Dr. Camarillo on jan 03 as previously scheduled outpt home care referral for bp check and pt/ot re: left ankle sprain discharge summary dictated job #[id number] Vital Signs/I&Os Vital Signs Date Time Temp Pulse Resp B/P (MAP) Pulse Ox O2 Delivery O2 Flow Rate FiO2 12/30/20 06:40 18 12/30/20 06:02 168/70 12/30/20 06:00 98.0 77 97 Room Air I&O- Last 24 Hours up to 6 AM 12/30/20 06:00 Intake Total 1980 ml Output Total 1500 ml Balance 480 ml Laboratory Data Labs 24H Laboratory Tests 2 12/29/20 07:43: Nucleated Red Blood Cells % (auto) 0.0, Anion Gap 7L, Glomerular Filtration Rate > 60.0, Calcium Level 9.1 12/29/20 07:45: Bedside Glucose (Misc Panel) 215H 12/29/20 11:23: Bedside Glucose (Misc Panel) 222H 12/29/20 17:43: Bedside Glucose (Misc Panel) 262H 12/29/20 21:27: Bedside Glucose (Misc Panel) 353H 12/30/20 05:48: Nucleated Red Blood Cells % (auto) 0.0, Anion Gap 8, Glomerular Filtration Rate > 60.0, Calcium Level 9.1 CBC/BMP Laboratory Tests 12/29/20 07:43 12/30/20 05:48 FSBS Laboratory Tests Test 12/29/20 07:45 12/29/20 11:23 12/29/20 17:43 12/29/20 21:27 Range/Units Bedside Glucose (Misc Panel) 215 222 262 353 80-115 MG/DL Discharge Medications Scheduled Amlodipine Besylate (Amlodipine Besylate) 10 Mg Tablet, 10 MG PO DAILY Aspirin (Aspirin EC) 81 Mg Tablet.dr 81 MG PO DAILY, (Reported) Atenolol (Atenolol) 25 Mg Tablet, 25 MG PO DAILY Atorvastatin Calcium (Atorvastatin Calcium) 20 Mg Tab, 20 MG PO DAILY, (Reported) Duloxetine HCl (Duloxetine HCl) 60 Mg Capsule.dr, 60 MG PO DAILY, (Reported) Empagliflozin (Jardiance) 10 Mg Tablet, 10 MG PO DAILY, (Reported) Ferrous Sulfate (Ferrous Sulfate) 325 Mg Tablet.dr, 325 MG PO DAILY, (Reported) Gabapentin (Gabapentin) 100 Mg Capsule, 100 MG PO BID, (Reported) Insulin Detemir (Levemir Flextouch) 100 Unit/1 Ml Insuln.pen, 26 UNITS SUBQ BID, (Reported) Insulin Human Lispro (Novolog) 100 Unit/1 Ml Vial, 1 DOSE SC TID, (Reported) PER SLIDING SCALE Isosorbide Dinitrate (Isosorbide Dinitrate) 20 Mg Tablet, 20 MG PO TID Levothyroxine Sodium (Levothyroxine Sodium) 75 Mcg Tablet, 75 MCG PO DAILY, (Reported) Metformin HCl (Metformin HCl ER) 500 Mg Tab.er.24h, 1,000 MG PO BID, (Reported) Pantoprazole Sodium (Pantoprazole Sodium) 40 Mg Tablet.dr, 40 MG PO DAILY, (Reported) Sucralfate (Sucralfate) 1 Gm Tablet, 1 GM PO TID, (Reported) Scheduled PRN Hydralazine HCl (Hydralazine HCl) 10 Mg Tablet, 10 MG PO QIDP PRN for sbp>150mmhg. Hydrocodone/Acetaminophen (Hydrocodone-Acetamin 7.5-325) 1 Each Tablet, 1 TAB PO TID PRN for pain, (Reported) Hydrocodone/Acetaminophen (Hydrocodone-Acetamin 7.5-325) 1 Each Tablet, 1 TAB PO TIDP PRN for pain Tizanidine HCl (Tizanidine HCl) 4 Mg Cap, 4 MG PO BID PRN for MUSCLE SPASMS, (Reported) Allergies Coded Allergies: gatifloxacin (Verified Allergy, Mild, 05/30/20) SHAZIA CHICAS MD Dec 30, 2020 07:33
[2020-12-30] MEDS: ASPIRIN 81MG ENTERIC TABLET PO SCH (08:31)
[2020-12-30] MEDS: ATORVASTATIN 20 MG TAB PO SCH (08:32)
[2020-12-30] MEDS: DOCUSATE SODIUM 100MG CAPSULE PO SCH (08:32)
[2020-12-30] MEDS: GABAPENTIN 100 MG CAP PO SCH (08:32)
[2020-12-30] MEDS: DULoxetine 30MG CAPSULE (CYMBALTA) PO SCH (08:32)
[2020-12-30] MEDS: PANTOPRAZOLE 40MG TAB (PROTONIX) PO SCH (08:32)
[2020-12-30] MEDS: LEVEMIR (INSULIN DETEMIR) 1 UNITS/0.01ML SC SCH (08:33)
[2020-12-30] MEDS: HumaLOG INSULIN (NovoLOG) PER UNIT SC SCH (08:33)
[2020-12-30] MEDS: SUCRALFATE 1 GM TAB PO SCH (08:33)
[2020-12-30 08:34] VITALS: BP 168/70
[2020-12-30] MEDS: ENOXAPARIN 30MG/0.3ML SYRINGE (J1650 PER 10MG) SC SCH (08:34)
[2020-12-30] MEDS: FERROUS SULFATE 325MG TAB PO SCH (08:34)
[2020-12-30] MEDS ORDERED: atenoloL 25 MG TAB PO SCH (09:00)
--- NOTE | 2020-12-30 10:03 | DSES ---
DISCHARGE SUMMARY DATE OF ADMISSION: 12/26/2020 DATE OF DISCHARGE: 12/30/2020 PRIMARY DISCHARGE DIAGNOSES: 1. Hypertensive urgency. 2. Hepatic cirrhosis. 3. Left ankle sprain. 4. Troponin leak secondary to hypertensive urgency. 5. Type-2 diabetes. 6. CAD. 7. Congestive heart failure with preserved ejection fraction, compensated. 8. Gastroesophageal reflux disease. 9. Hypothyroidism. 10. Chronic fibromyalgia. 11. Hypotension secondary to losartan and spironolactone. 12. Mechanical fall resulting in left ankle pain/strain. 13. Compression of the superior endplate of L1 which is new. DISCHARGE MEDICATIONS: 1. Norvasc 10 mg daily. 2. Atenolol 25 mg daily. 3. Hydrocodone/acetaminophen 1 tablet three times a day as needed for pain. 4. Isosorbide 20 mg three times a day. 5. Hydralazine 10 mg four times a day as needed for systolic pressure greater than 150. 6. Aspirin 81 daily. 7. Atorvastatin 20 daily. 8. Duloxetine 60 daily. 9. Jardiance 10 daily. 10. Ferrous sulfate 325 daily. 11. Gabapentin 100 twice a day. 12. Levemir insulin 26 units subcutaneously twice a day. 13. Insulin sliding scale. 14. Synthroid 75 mcg daily. 15. Metformin 1 gram twice a day. 16. Protonix 40 daily. 17. Carafate 1 gram three times a day. 18. Tizanidine 4 mg twice a day as needed for muscle spasms. HISTORY AND HOSPITAL COURSE: 70-year-old female admitted on 12/25/2020 status post a fall. Patient was in her usual state of health when she fell down feeling dizzy when her legs gave out from under her ambulating with her walker. Patient had no loss of consciousness or syncope, denied any chest pain. She complained of increasing pain in the left ankle, the right knee and unable to walk since her fall. Patient was found to have hypertensive urgency with systolic blood pressure of 211/93 on presentation due to severe pain. Ankle x-ray showed diffuse ankle soft tissue swelling with no evidence of acute fracture. CT head was negative. Dr. Camarillo an orthopedic surgeon was consulted regarding the left ankle sprain and recommended immobilization for 2-3 days, CAM boot or walking boot which is removable with a well padded slab splint to the left ankle, weightbearing as tolerated and CAM boot for an additional 5-6 days, physical therapy with proprioception training for ankle stability and rehabilitative protocol, follow up with Dr. Camarillo January 03 to ensure proper CAM boot and placement and physical therapy to re-examine her ankle as outpatient. Patient's losartan and spironolactone will resume. She was given Norvasc with hydralazine with resultant in hypotension with systolic pressure dropping to 67/48, was given intravenous fluids 500 mL with improvement. patient had uncontrolled blood pressure reaching 190/78 due to severe pain and she was kept on hydrocodone three times a day as needed, resumed on her home dose of gabapentin 100 twice a day due to her chronic fibromyalgia pain. Patient had complaints of severe tachycardia and positive troponin. CT chest showed no pulmonary embolism with fibroatelectasis and an L1 new compression endplate fragmentation. CT abdomen and pelvis showed incidental findings of hepatic cirrhosis with nonspecific air-fluid levels, minimal ileus or enteritis is not excluded. Patient was found to be hypotensive again with losartan and spironolactone with pressure of 92/68 and complaints of lightheadedness. Losartan and spironolactone were discontinued. Patient was placed on atenolol 25 daily due to tachycardia as well as hydralazine as needed for a systolic pressure greater than 140 at 10 mg q6h and isosorbide 20 mg three times a day at 7:00, noon and 17:00 with holding parameters for a systolic pressure less than 130. Patient had improvement in blood pressure to 133/54-136/54; heart rate was 65-77 on the current regimen. Patient was instructed to keep a journal at home with her blood pressure and medications that she is taking, to call her doctor if her blood pressure is greater than 160 mmHg. Patient was cleared by physical therapy and did well with outpatient referral for home case services for blood pressure check and outpatient physical therapy, occupational therapy and followup with Dr. Camarillo in the office. PHYSICAL EXAMINATION ON DISCHARGE: Temperature 98, pulse 77, respiratory rate 19, blood pressure 168/70 before medications, 97% on room air. General: Patient is awake, alert, oriented to person, place and time, no distress. HEENT: Moist mucous membranes. Neck: No JVD, thyromegaly or cervical lymphadenopathy. Lungs: Clear to auscultation, no wheezes, rhonchi or rales. Heart: S1 and S2 sinus rhythm, no murmurs, rubs or gallops. Abdomen: Soft, nontender, nondistended, positive bowel sounds. Extremities: Left ankle in a CAM boot. No pitting edema on the right lower extremity. LABORATORY DATA/IMAGING STUDIES/MICROBIOLOGY: Please see the chart. Time spent on discharge: Thirty minutes MTDD
[2020-12-31] MEDS ORDERED: NORV5TAB PO (11:51)
[2020-12-31] MEDS ORDERED: HYDR10TAB PO (14:48)
[2020-12-31] MEDS ORDERED: ATEN25TA PO (14:48)
[2020-12-31] MEDS ORDERED: ISOS20TAB PO (14:48)
== END 2020-12-30 10:22 | disposition home health service (06) | DRG 563 ==
LOC: M ED 21:17 → M ED INP 12-25 05:08 → ENRESERV 12-26 06:54 → M PCU 12-26 08:50 → OBSVTOIN 12-26 14:21 → M MS5PR 12-26 17:00
PROVIDERS: ADMIT Internal Medicine; ATTEND General Practice
DX: S93.402A Sprain of unspecified ligament of left ankle, initial encounter (principal); I13.0 Hypertensive heart and chronic kidney disease with heart failure and stage 1 through stage 4 chronic kidney disease, or unspecified chronic kidney disease; I50.32 Chronic diastolic (congestive) heart failure; M48.56XA Collapsed vertebra, not elsewhere classified, lumbar region, initial encounter for fracture; E11.22 Type 2 diabetes mellitus with diabetic chronic kidney disease; I25.10 Atherosclerotic heart disease of native coronary artery without angina pectoris; E78.5 Hyperlipidemia, unspecified; N18.9 Chronic kidney disease, unspecified; E03.9 Hypothyroidism, unspecified; K75.81 Nonalcoholic steatohepatitis (NASH); K21.9 Gastro-esophageal reflux disease without esophagitis; I16.0 Hypertensive urgency; M79.7 Fibromyalgia; G89.29 Other chronic pain; K74.60 Unspecified cirrhosis of liver; Z20.822 Contact with and (suspected) exposure to COVID-19; Z79.82 Long term (current) use of aspirin; Z79.4 Long term (current) use of insulin; Z79.899 Other long term (current) drug therapy; Z88.8 Allergy status to other drugs, medicaments and biological substances; E86.0 Dehydration; R42 Dizziness and giddiness; Z98.42 Cataract extraction status, left eye; X50.1XXA Overexertion from prolonged static or awkward postures, initial encounter; Z98.41 Cataract extraction status, right eye; Y92.009 Unspecified place in unspecified non-institutional (private) residence as the place of occurrence of the external cause; Y93.9 Activity, unspecified; Z90.49 Acquired absence of other specified parts of digestive tract; Y99.8 Other external cause status

== ENCOUNTER 2020-12-31 11:29 | Inpatient (IN) | payer MEDICARE ==
[~2020-12-31] VITALS: Ht 165.1 cm; Wt 81.2 kg
[2020-12-31] MEDS: PANTOPRAZOLE 40MG TAB (PROTONIX) PO SCH (09:00)
[2020-12-31] MEDS: amLODIPine 5 MG TAB PO SCH (09:00)
[2020-12-31] MEDS: atenoloL 25 MG TAB PO SCH (09:00)
[2020-12-31] MEDS: DULoxetine 30MG CAPSULE (CYMBALTA) PO SCH (09:00)
[2020-12-31] MEDS: ASPIRIN 81MG ENTERIC TABLET PO SCH (09:00)
[2020-12-31] MEDS: ATORVASTATIN 20 MG TAB PO SCH (09:00)
[~2020-12-31 11:29] MED LIST changes: +ATEN25TA PO; +DULO60CA35 PO; +HYDR5TAB PO; +ISOS20TAB PO; +LEVE1INJ5 SUBQ; +LEVO75TA4 PO; +SELF1KIT MC
[2020-12-31] MEDS ORDERED: NORV5TAB PO (11:51)
[2020-12-31] MEDS ORDERED: ONDANSETRON 4MG/2ML VIAL IV ONE (12:25)
[2020-12-31] MEDS ORDERED: MORPHINE 4 MG/ML 1ML VIAL/SYRINGE (J2270) IV ONE (12:25)
--- OUTSIDE RECORDS SUMMARY | 2020-12-31 12:37 | CCD ---
Author Author [facility] Organization [facility] Address Unknown Phone Unavailable Support Name Relationship Address Phone RE Next Of Kin Unknown Unavailable Junior Gallo Next Of Kin Unknown Unavailable MARIO ALBERTO MILLER Next Of Kin [address] [place] [address] LEDGER, (CAPPY) CAPITOLA Next Of Kin [address] [place] [address] LEDGER, CAPPY Next Of Kin [address] [address] DISABILITY Next Of Kin UN UN, UN UN MARIANO FLEMING Next Of Kin [address] [facility] [address] [place] [address] NELLIE FLEMING Next Of Kin [address] [place] [address] NELLIE ANDERS Next Of Kin [address] [place] [address] Kimberly Villanueva Next Of Kin [address] [place] [address] 315 Kristopher Barrow MD Next Of Kin [address] [place] [address] JUNIOR BELTRE Next Of Kin [address] [place] [id number] DALE [place] [address] DALE WALTERS Next Of Kin [address] [facility] [address] [place] [address] [employer] Next Of Kin [address] [place] [address] DOLLAR [place] [address] Gilson SMITH JR Next Of Kin [address] [place] [address] [employer] Next [place] [address] [facility] TOO Next [place] [address] DEEP FLEMING Next Of Kin [address] [place] [address] UE Next Of Kin Unknown Unavailable SATISH BELTRE [place] [address] Unavailable MARTHA FLEMING Next Of Kin [address] [place] [address] ANGELA KINSGLEY Next Of Kin Unknown Mario Alberto Fleming Next Of Kin Unknown DISABLED Next Of Kin Unknown Unavailable [place] [address] JUNIOR MILLER Next Of Kin [address] [place] [address] MARIANA SMITH Next Of Kin [address] [facility] [address] [place] [address] MARIO ALBERTO MILLER ECON [address] [place] [address] Unavailable LedAlvaro seymour (Cappy) ECON Unknown Unavai lable Mario Alberto Fleming ECON Unknown [phone] Care Team Providers Care Iron Assorter Name Role Phone Catalino Dunn Cara DYNAMICS AX DEVELOPER Unavailable Unavailable Kocan, J Cara DYNAMICS AX DEVELOPER Unavailable Unavailable Kocan, J Cara DYNAMICS AX DEVELOPER Unavailable Unavailable Kocan, J Cara DYNAMICS AX DEVELOPER Unavailable Unavailable Kocan, J Cara DYNAMICS AX DEVELOPER Unavailable Unavailable Kocan, J Cara DYNAMICS AX DEVELOPER Unavailable Unavailable Kocan, J Cara DYNAMICS AX DEVELOPER Unavailable Unavailable Kocan, J Cara DYNAMICS AX DEVELOPER Unavailable Unavailable Kocan, J Cara DYNAMICS AX DEVELOPER Unavailable Unavailable Kocan, J Cara DYNAMICS AX DEVELOPER Unavailable Unavailable Kocan, J Cara DYNAMICS AX DEVELOPER Unavailable Unavailable Kocan, J Cara DYNAMICS AX DEVELOPER Unavailable Unavailable Kocan, J Cara DYNAMICS AX DEVELOPER Unavailable Unavailable SYSTEM IN, NOT IN PROVIDER [...] WELLS Unavailable Unavailable Fish, Johnna Thompson [facility], PA-C Unavailable Unavailabl e Fish, Johnna Thompson [facility], PA-C Unavailable Unavailabl e Fish, Johnna Thompson [facility], PA-C Unavailable Unavailabl e Fish, Johnna Thompson [facility], PA-C Unavailable Unavailabl e Fish, Johnna Thompson [facility], PA-C Unavailable Unavailabl e Fish, Johnna Thompson [facility], PA-C Unavailable Unavailabl e Fish, Johnna Donna [facility], PA-C Unavailable Unavailabl e Fish, Johnna Thompson [facility], PA-C Unavailable Unavailabl e Fish, Johnna Thompson [facility], PA-C Unavailable Unavailabl e Fish, Johnna Thompson [facility], PA-C Unavailable Unavailabl e Fish, Johnna Thompson [facility], PA-C Unavailable Unavailabl e Fish, Johnna Thompson [facility], PA-C Unavailable Unavailabl e Fish, Johnna Thompson [facility], PA-C Unavailable Unavailabl e Fish, [facility] Unavailable Unavailabl e Fish, [facility], PA-C Unavailable Unavailabl e Fish, [facility], PA-C Unavailable Unavailabl e Fish, [facility], PA-C Unavailable Unavailabl e Fish, [facility], PA-C Unavailable Unavailabl e Fish, [facility], PA-C Unavailable Unavailabl e Fish, [facility], PA-C Unavailable Unavailabl e Fish, [facility], PA-C Unavailable Unavailabl e Fish, [facility], PA-C Unavailable Unavailabl e Fish, [facility], PA-C Unavailable Unavailabl e Fish, [facility], PA-C Unavailable Unavailabl e Fish, [facility], PA-C Unavailable Unavailabl e Fish, [facility], PA-C Unavailable Unavailabl e Fish, [facility], PA-C Unavailable Unavailabl e Fish, [facility], PA-C Unavailable Unavailabl e Fish, [facility], PA-C Unavailable Unavailabl e Fish, [facility], PA-C Unavailable Unavailabl e Fish, [facility], PA-C Unavailable Unavailabl e Fish, [facility], PA-C Unavailable Unavailabl e Fish, [facility], PA-C Unavailable Unavailabl e Fish, [facility], PA-C Unavailable Unavailabl e Fish, [facility], PA-C Unavailable Unavailabl e Fish, [facility], PA[facility]C Unavailable Unavailabl e NILAM KEARNS MD Unavailable Unavailable NILAM KEARNS MD Unavailable Unavailable NILAM KEARNS MD Unavailable Unavailable NILAM KEARNS MD Unavailable Unavailable NILAM KEARNS MD Unavailable Unavailable NILAM KEARNS MD Unavailable Unavailable NILAM KEARNS MD Unavailable Unavailable NILAM KEARNS MD Unavailable Unavailable NILMA KEARNS MD Unavailable Unavailable NILAM KEARNS MD [...] Unavailable URMILA, NILAM WELLS Unavailable Unavailable URMILA, INLAM WELLS Unavailable Unavailable URMILA, NILAM WELLS Unavailable [...] Unavailable MCELHERAN, KASSY PA Unavailable Unavailable MCELHERAN, AKSSY PA Unavailable Unavailable MCELHERAN, KASSY PA Unavailable [...] is protected by Article 27-F of the [facility] Public Health law. If you continue you may have access to information: Regarding HIV / AIDS; Provided by facilities licensed or operated by the [facility] Office of Mental Health; or Provided by the [facility] Office for People With Developmental Disabilities. If such information is present, then the following [facility] mandated warning applies: This information has been [...] law may result in a fine or alf sentence or both. A general authorization for the release of medical or other information is NOT sufficient authorization for further disc losure. Family History Family Member Name Family Member Gender Family Member Status Date o f Status Description Data Source(s) Unknown Unknown Problem MEDENT ([facility], ) Encounters Encounter Providers Location Date Indications Data Source(s ) Unknown [address] [facility] Y [address] 12/19/2020 12:00:00 AM EDT eCW1 ([facility]) Unknown [address] [facility] Y [address] 12/13/2020 12:00:00 AM EDT eCW1 ([facility]) Outpatient [address] [facility] N Y [address] 12/12/2020 12:00:00 AM EDT eCW1 ([facility]) Unknown [address] [facility] Y [address] 12/12/2020 12:00:00 AM EDT eCW1 ([facility]) Unknown [address] [facility] Y [address] 12/01/2020 12:00:00 AM EDT [facility]CW1 [facility]) Outpatient Attender: Zakia Conti MD Main [facility] 10/19/2020 02:15:00 PM EDT MEDENT ([facility] hurtado) Outpatient Attender: Cara ANGUIANO SJP.CARLOS ENRIQUE-SJP.CARLOS ENRIQUE 2020 12:00:00 AM EDT - 10/12/2020 12:16:58 PM EDT [facility] Unknown [address] [facility] [place] [address] 10/11/2020 12:00:00 AM EDT [facility]) Outpatient [address] [facility] Y [address] 10/11/2020 12:00:00 AM EDT eCW1 ([facility]) Unknown [address] [facility] Y [address] 10/06/2020 12:00:00 AM EDT eCW1 ([facility]) Outpatient Attender: Selma Wilson/Osman/Win/Briana corcoran 10/04/2020 11:00:00 AM EDT MEDENT ([facility] EDEN Daniels) Unknown [address] [facility] [address] 10/04/2020 12:00:00 AM EDT eCW1 ([facility]) Outpatient [address] [facility] Y [address] 10/03/2020 12:00:00 AM EDT eCW1 ([facility]) Unknown [address] [facility] Y [address] 10/03/2020 12:00:00 AM EDT eCW1 ([facility]) Unknown [address] [facility] Y [address] 09/30/2020 12:00:00 AM EDT eCW1 ([facility]) Unknown [address] [facility] Y [address] 09/29/2020 12:00:00 AM EDT eCW1 ([facility]) OFFICE OUTPATIENT VISIT 15 MINUTES Attender: Donna PETERSON PA-C Physical Therapy 09/21/2020 10:30:00 AM EDT MEDENT ([facility]) Outpatient Attender: ANGY Pierce/Osman/Win/Lio sue 09/20/2020 03:40:00 PM EDT MEDENT ([facility]) Unknown [address] [facility] [address] 09/15/2020 12:00:00 AM EDT eCW1 ([facility]) Unknown [address] [facility] [address] 09/12/2020 12:00:00 AM EDT eCW1 ([facility]) Outpatient Attender: NILAM KEARNS MD SJP.CARLOS ENRIQUE-SJP.CARLOS ENRIQUE 12:00:00 AM EDT - 09/07/2020 12:16:[address] [facility] Unknown [address] [facility] [address] 09/05/2020 12:00:00 AM EDT eCW1 ([facility]) Unknown [address] [facility] [address] 09/01/2020 12:00:00 AM EDT eCW1 ([facility]) Unknown [address] [facility] [address] 09/01/2020 12:00:00 AM EDT eCW1 ([facility]) Unknown [address] [facility] [address] 08/31/2020 12:00:00 AM EDT eCW1 ([facility]) Office Visit, Est Pt., Level 4 PC [address] [place] [address] 08/22/2020 12:00:00 AM EDT eCW1 ([facility]) Outpatient Attender: KASSY ZEPEDA Physical Therapy 08/18/2020 01:15:00 PM EDT MEDENT ([facility]) Outpatient Attender: Zakia Conti MD Main office - [place] 08/09/2020 09:30:00 AM EDT MEDENT ([facility]) Office Visit, Est Pt., Level 4 PC [address] [place] [address] 08/02/2020 12:00:00 AM EDT eCW1 ([facility]) Unknown [address] [facility] [place] [address] 08/02/2020 12:00:00 AM EDT eCW1 ([facility]) Outpatient Attender: AYDIN Wilson/Osman/Win/Frannie zeng 08/01/2020 03:30:00 PM EDT MEDENT ([facility]) Unknown [address] [facility] [address] 07/29/2020 12:00:00 AM EDT eCW1 ([facility]) Unknown [address] [facility] [address] 07/26/2020 12:00:00 AM EDT eCW1 ([facility]) Outpatient JAYDACARLOS ENRIQUE 07/22/2020 12:00:00 AM EDT [facility] Office Visit, Est Pt., Level 4 PC [address] [place] [address] 07/20/2020 12:00:00 AM EDT eCW1 ([facility]) Unknown [address] [facility], [facility] [address] 07/15/2020 12:00:00 AM EDT eCW1 ([facility]) OFFICE OUTPATIENT VISIT 15 MINUTES Attender: KASSY ZEPEDA Physical Therapy 07/13/2020 10:30:00 AM EDT MEDENT ([facility]) Outpatient Attender: NILAM MONTELONGOCARLOS ENRIQUE 12:00:00 AM EDT - 07/06/2020 11:32:[address] [facility] Unknown [address] [facility] [address] 07/06/2020 12:00:00 AM EDT eCW1 ([facility]) Office Visit, Est Pt., Level 4 PC [address] [place] [address] 07/05/2020 12:00:00 AM EDT eCW1 ([facility]) Unknown [address] [facility] [address] 07/05/2020 12:00:00 AM EDT eCW1 ([facility]) Unknown [address] [facility] Y [address] 07/05/2020 12:00:00 AM EDT eCW1 ([facility]) Unknown [address] [facility] Y [address] 06/22/2020 12:00:00 AM EDT eCW1 ([facility]) Unknown [address] [facility], [facility] [address] 06/21/2020 12:00:00 AM EDT eCW1 ([facility]) Unknown [address] [facility] [address] 06/17/2020 12:00:00 AM EDT eCW1 ([facility]) Office Visit, Est Pt., Level 2 FC [address] [place] [address] 06/13/2020 12:00:00 AM EDT eCW1 ([facility]) Unknown [address] [facility] Y [address] 06/09/2020 12:00:00 AM EDT eCW1 ([facility]) Outpatient Attender: NILAM PULIDO.CARLOS ENRIQUE-SJANNIE 10:05:07 AM EDT - 06/08/2020 11:16:[address] [facility] Unknown [address] [facility] Y [address] 06/08/2020 12:00:00 AM EDT [facility]CW[facility] Unknown [address] [facility] [place] [address] 06/06/2020 12:00:00 AM EDT eCW1 [facility] Outpatient Attender: KASSY ZEPEDA Physical Therapy 05/26/2020 02:15:00 PM EDT MEDENT ([facility]) Unknown [address] [facility] [address] 05/26/2020 12:00:00 AM EDT eCW1 ([facility] Unknown [address] [facility] [place] [address] 05/23/2020 12:00:00 AM EDT eCW1 [facility] Unknown [address] [facility] [place] [address] 05/18/2020 12:00:00 AM EDT eCW1 [facility] Outpatient [address] [facility] [place] [address] 05/12/2020 12:00:00 AM EDT eCW1 ([facility] Unknown [address] [facility] [place] [address] 05/06/2020 12:00:00 AM EST eCW1 [facility] Outpatient [address] [facility] [place] [address] 05/03/2020 12:00:00 AM EST eCW1 ([facility] Unknown [address] [facility] [place] [address] 05/03/2020 12:00:00 AM EST eCW1 ([facility] Unknown [address] [facility] [address] 05/03/2020 12:00:00 AM EST eCW1 ([facility]) Unknown [address] [facility] Y [address] 04/21/2020 12:00:00 AM EST eCW1 ([facility] Outpatient Attender: NILAM KEARNS MD SJP.CARLOS ENRIQUE-SJP.CARLOS ENRIQUE 12:00:00 AM EST - 04/15/2020 03:42:03 PM EST [facility] [address] [facility] [address] 04/11/2020 12:00:00 AM EST eCW1 [facility] Outpatient [address] [facility] [place] [address] 04/05/2020 12:00:00 AM EST eCW1 ([facility] Outpatient [address] [facility] [address] 04/04/2020 12:00:00 AM EST eCW1 ([facility]) Outpatient Attender: ANGY Pierce/Osman/Win/Lio sue 03/24/2020 08:10:00 AM EST MEDENT ([facility]) Unknown [address] [facility] [address] 03/21/2020 12:00:00 AM EST eCW1 ([facility] Unknown [address] [facility] [address] 03/15/2020 12:00:00 AM EST eCW1 ([facility]) Unknown [address] [facility] [place] [address] 03/08/2020 12:00:00 AM EST eCW1 ([facility]) Outpatient [address] [facility] [place] [address] 03/08/2020 12:00:00 AM EST eCW1 ([facility] Unknown [address] [facility] [place] [address] 03/08/2020 12:00:00 AM EST eCW1 ([facility]) Unknown [address] [facility] [place] [address] 03/08/2020 12:00:00 AM EST eCW1 ([facility]) Unknown [address] [facility] [address] 02/25/2020 12:00:00 AM EST eCW1 ([facility] Unknown [address] [facility] [place] [address] 02/25/2020 12:00:00 AM EST eCW1 ([facility] Outpatient [address] [facility] [place] [address] 02/23/2020 12:00:00 AM EST eCW1 ([facility] Unknown [address] [facility] [place] [address] 02/23/2020 12:00:00 AM EST eCW1 ([facility] Unknown [address] [facility] Y [address] 02/23/2020 12:00:00 AM EST eCW1 ([facility] Unknown [address] [facility] N Y [address] 02/22/2020 12:00:00 AM EST eCW1 ([facility] Unknown [address] [facility] [place] [address] 02/22/2020 12:00:00 AM EST eCW1 ([facility] Unknown [address] [facility] N Y [address] 02/15/2020 12:00:00 AM EST eCW1 ([facility] Unknown [address] [facility] N Y [address] 02/15/2020 12:00:00 AM EST eCW1 ([facility] Unknown [address] [facility] [place] [address] 02/12/2020 12:00:00 AM EST eCW1 ([facility]) Unknown [address] [facility] Y [address] 02/10/2020 12:00:00 AM EST eCW1 ([facility] Outpatient Attender: AYDIN Wilson/Osman/Win/Frannie zeng 02/09/2020 08:00:00 AM EST [facility] ([facility] Office Visit, Est Pt., Level 4 PC [address] [place] [address] 02/09/2020 12:00:00 AM EST eCW1 ([facility]) Unknown [address] [facility] [address] 02/04/2020 12:00:00 AM EST eCW1 ([facility]) Unknown [address] [facility] [address] 02/03/2020 12:00:00 AM EST eCW1 ([facility]) Unknown [address] [facility] Y [address] 01/29/2020 12:00:00 AM EST eCW1 ([facility]) Unknown [address] [facility] [address] 01/29/2020 12:00:00 AM EST eCW1 ([facility]) Outpatient [address] [facility] [address] 01/26/2020 12:00:00 AM EST eCW1 ([facility] Unknown [address] [facility] [address] 01/20/2020 12:00:00 AM EST eCW1 ([facility]) Outpatient Attender: ANGY Pierce/Osman/Win/Lio sue 01/14/2020 12:40:00 PM EST MEDENT ([facility]) Unknown [address] [facility] Y [address] 01/08/2020 12:00:00 AM EST eCW1 ([facility] Unknown [address] [facility] Y [address] 01/06/2020 12:00:00 AM EST eCW1 ([facility]) Unknown [address] [facility] [address] 12/31/2019 12:00:00 AM EST eCW1 ([facility]) Outpatient Attender: NILAM PULIDO.CARLOS ENRIQUE-SJP.CARLOS ENRIQUE 0 12:00:00 AM EST - 12/30/2019 09:40:17 AM EST [facility] Unknown [address] [facility] [place] [address] 12/30/2019 12:00:00 AM EST eCW1 ([facility]) Unknown [address] [facility] [place] [address] 12/25/2019 12:00:00 AM EDT eCW1 ([facility]) Unknown [address] [facility] [place] [address] 12/11/2019 12:00:00 AM EDT eCW1 ([facility]) Unknown [address] [facility] [place] [address] 12/08/2019 12:00:00 AM EDT eCW1 ([facility]) Unknown [address] [facility] [place] [address] 12/07/2019 12:00:00 AM EDT eCW1 ([facility]) Office Visit Attender: KASSY ZEPEDA Physical Therapy 12/04/2019 04:00:00 PM EDT MEDENT ([facility]) Unknown [address] [facility] [place] [address] 12/03/2019 12:00:00 AM EDT eCW1 ([facility]) Unknown [address] [facility] N Y [address] 12/03/2019 12:00:00 AM EDT eCW1 ([facility]) Unknown [address] [facility] N Y [address] 12/02/2019 12:00:00 AM EDT eCW1 ([facility]) Outpatient [address] [facility] Y [address] 12/01/2019 12:00:00 AM EDT eCW1 ([facility]) Outpatient Referrer: PROVIDER SYSTEM IN 11/13/2019 1 2:27:00 PM EDT 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 [facility] mild to mod cord compression of C5 and C 6 Outpatient Attender: KASSY mallory 11/06/2019 02:45:00 PM EDT MEDMARIA INES ([facility], [facility]) Outpatient<td ID="encounterTypeDescripti onID0">1 Year Follow-Up</td><td>Silverio Mustafa DO</td><td>Aydin Weaver MD [facility]</td><td>10/05/2020</td><td>04/07/2019 11:50AM</td><td>11:08AM</td><td> <content ID="encounterDiagnosisID0-0">History of Nicotine Dependence</content>, <content ID="encounterDiagnosisID0-1">Essential Hypertension</content>, <content ID="encounterDiagnosisID0-2">Retinopathy Hypertensive</content>, <content ID="encounterDiagnosisID0-3">Taking Medication For Diabetes Long-term Use of Insulin</content>, <content ID="encounterDiagnosisID0-4">Dry Eye Syndrome Both Eyes</content>, <content ID="encounterDiagnosisID0-5">Borderline Glaucoma Ocular Hypertension Both Eyes</content>, <content ID="encounterDiagnosisID0-6">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</content>, <content ID="encounterDiagnosisID0-7">Pseudophakia</content>, <content ID="encounterDiagnosisID0-8">Posterior Capsule Opacification Eccentric Capsule Both Eyes</content></td> Attender: SILVERIO Booker MD [facility] 04/07/2019 11:50:00 AM EST - 10/05/2020 11:08:00 AM ED T Posterior Capsule Opacification Eccentric Capsule Both EyesPseudophakiaHistory of Nicotine DependenceEssential Hypertension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Taking Medication For Diabetes Long-term Use of Insulin Retinopathy HypertensiveBorderline Glaucoma Ocular Hypertension Both EyesDry Eye Syndrome Both Eyes SHANE (Aydin Toribio MD [facility]) Posterior Capsule Opacification Eccentri c [...] Levothyroxine Sodium 75 MCG eCW1 ([facility]) Levothyroxine Sodium 0.075 MG Oral Tablet Levothyroxin e Sodium 75 MCG Levothyroxine Sodium 75 MCG 12/13/2020 12:00:00 AM EDT active Levothyroxine Sodium 75 MCG eCW1 ([facility]) Levothyroxine Sodium 0.075 MG Oral Tablet Levothyroxin e Sodium 75 MCG Levothyroxine Sodium 75 MCG 12/13/2020 12:00:00 AM EDT active Levothyroxine Sodium 75 MCG eCW1 ([facility]) duloxetine 60 MG Delayed Release Oral Capsule DULoxeti ne HCl 60 MG DULoxetine HCl 60 MG 12/12/2020 12:00:00 AM EDT 1.0 {capsule} a ctive DULoxetine HCl 60 MG eCW1 ([facility]) duloxetine 60 MG Delayed Release Oral Capsule DULoxeti ne HCl 60 MG DULoxetine HCl 60 MG 12/12/2020 12:00:00 AM EDT 1.0 {capsule} a ctive DULoxetine HCl 60 MG eCW1 ([facility]) duloxetine 60 MG Delayed Release Oral Capsule DULoxeti ne HCl 60 MG DULoxetine HCl 60 MG 12/12/2020 12:00:00 AM EDT 1.0 {capsule} a ctive DULoxetine HCl 60 MG eCW1 ([facility]) duloxetine 60 MG Delayed Release Oral Capsule DULoxeti ne HCl 60 MG DULoxetine HCl 60 MG 12/12/2020 12:00:00 AM EDT 1.0 {capsule} a ctive DULoxetine HCl 60 MG eCW1 ([facility]) Acetaminophen 325 MG / Hydrocodone Brielel trate 7.5 MG Oral Tablet HYDROcodone- Acetaminophen 7.5-325 MG HYDROcodone-Acetaminophen 7.5-325 MG 12/01/2020 12:00:00 AM EDT 1.0 {tablet_as_needed} active HYDROcodone- Acetaminophen 7.5-325 MG eCW1 ([facility]) Acetaminophen 325 MG / Hydrocodone Brielle trate 7.5 MG Oral Tablet HYDROcodone- Acetaminophen 7.5-325 MG HYDROcodone-Acetaminophen 7.5-325 MG 12/01/2020 12:00:00 AM EDT 1.0 {tablet_as_needed} active HYDROcodone- Acetaminophen 7.5-325 MG eCW1 ([facility]) Acetaminophen 325 MG / Hydrocodone Brielle trate 7.5 MG Oral Tablet HYDROcodone- Acetaminophen 7.5-325 MG HYDROcodone-Acetaminophen 7.5-325 MG 12/01/2020 12:00:00 AM EDT 1.0 {tablet_as_needed} active HYDROcodone- Acetaminophen 7.5-325 MG eCW1 ([facility]) Acetaminophen 325 MG / Hydrocodone Brielle trate 7.5 MG Oral Tablet HYDROcodone- Acetaminophen 7.5-325 MG HYDROcodone-Acetaminophen 7.5-325 MG 12/01/2020 12:00:00 AM EDT 1.0 {tablet_as_needed} active HYDROcodone- Acetaminophen 7.5-325 MG eCW1 ([facility]) Acetaminophen 325 MG / Hydrocodone Brielle trate 7.5 MG Oral Tablet HYDROcodone- Acetaminophen 7.5-325 MG HYDROcodone-Acetaminophen 7.5-325 MG 12/01/2020 12:00:00 AM EDT 1.0 {tablet_as_needed} active HYDROcodone- Acetaminophen 7.5-325 MG eCW1 ([facility]) Primidone 50 MG Oral Tablet Primidone 10/19/2020 12:00:00 AM EDT active MEDENT ([facility], ) Triamcinolone Acetonide 1 MG/ML Topical Cream Triamcin olone Acetonide 0.1 % Triamcinolone Acetonide 0.1 % 10/11/2020 12:00:00 AM EDT active Triamcinolone Acetonide 0.1 % eCW1 ([facility]) Triamcinolone Acetonide 1 MG/ML Topical Cream Triamcin olone Acetonide 0.1 % Triamcinolone Acetonide 0.1 % 10/11/2020 12:00:00 AM EDT active Triamcinolone Acetonide 0.1 % eCW1 ([facility]) Triamcinolone Acetonide 1 MG/ML Topical Cream Triamcin olone Acetonide 0.1 % Triamcinolone Acetonide 0.1 % 10/11/2020 12:00:00 AM EDT active Triamcinolone Acetonide 0.1 % eCW1 ([facility]) Triamcinolone Acetonide 1 MG/ML Topical Cream Triamcin olone Acetonide 0.1 % Triamcinolone Acetonide 0.1 % 10/11/2020 12:00:00 AM EDT active Triamcinolone Acetonide 0.1 % eCW1 ([facility]) Triamcinolone Acetonide 1 MG/ML Topical Cream Triamcin olone Acetonide 0.1 % Triamcinolone Acetonide 0.1 % 10/11/2020 12:00:00 AM EDT active Triamcinolone Acetonide 0.1 % eCW1 ([facility]) Triamcinolone Acetonide 1 MG/ML Topical Cream Triamcin olone Acetonide 0.1 % Triamcinolone Acetonide 0.1 % 10/11/2020 12:00:00 AM EDT active Triamcinolone Acetonide 0.1 % eCW1 ([facility]) Triamcinolone Acetonide 1 MG/ML Topical Cream Triamcin olone Acetonide 0.1 % Triamcinolone Acetonide 0.1 % 10/11/2020 12:00:00 AM EDT active Triamcinolone Acetonide 0.1 % eCW1 ([facility]) Levothyroxine Sodium 0.05 MG Oral Tablet Levothyroxine Sodium 50 MCG Levothyroxine Sodium 50 MCG 10/04/2020 12:00:00 AM EDT active Levothyroxine Sodium 50 MCG eCW1 ([facility]) Levothyroxine Sodium 0.05 MG Oral Tablet Levothyroxine Sodium 50 MCG Levothyroxine Sodium 50 MCG 10/04/2020 12:00:00 AM EDT active Levothyroxine Sodium 50 MCG eCW1 ([facility]) Levothyroxine Sodium 0.05 MG Oral Tablet Levothyroxine Sodium 50 MCG Levothyroxine Sodium 50 MCG 10/04/2020 12:00:00 AM EDT active Levothyroxine Sodium 50 MCG eCW1 ([facility]) Levothyroxine Sodium 0.05 MG Oral Tablet Levothyroxine Sodium 50 MCG Levothyroxine Sodium 50 MCG 10/04/2020 12:00:00 AM EDT active Levothyroxine Sodium 50 MCG eCW1 ([facility]) Levothyroxine Sodium 0.05 MG Oral Tablet Levothyroxine Sodium 50 MCG Levothyroxine Sodium 50 MCG 10/04/2020 12:00:00 AM EDT active Levothyroxine Sodium 50 MCG eCW1 ([facility]) Levothyroxine Sodium 0.05 MG Oral Tablet Levothyroxine Sodium 50 MCG Levothyroxine Sodium 50 MCG 10/04/2020 12:00:00 AM EDT active Levothyroxine Sodium 50 MCG eCW1 ([facility]) Acetaminophen 325 MG / Hydrocodone Brielle trate 7.5 MG Oral Tablet HYDROcodone- Acetaminophen 7.5-325 MG HYDROcodone-Acetaminophen 7.5-325 MG 10/03/2020 12:00:00 AM EDT 1.0 {tablet_as_needed} active HYDROcodone- Acetaminophen 7.5-325 MG eCW1 ([facility]) Acetaminophen 325 MG / Hydrocodone Brielle trate 7.5 MG Oral Tablet HYDROcodone- Acetaminophen 7.5-325 MG HYDROcodone-Acetaminophen 7.5-325 MG 10/03/2020 12:00:00 AM EDT 1.0 {tablet_as_needed} active HYDROcodone- Acetaminophen 7.5-325 MG eCW1 ([facility]) Acetaminophen 325 MG / Hydrocodone Brielle trate 7.5 MG Oral Tablet HYDROcodone- Acetaminophen 7.5-325 MG HYDROcodone-Acetaminophen 7.5-325 MG 10/03/2020 12:00:00 AM EDT 1.0 {tablet_as_needed} active HYDROcodone- Acetaminophen 7.5-325 MG eCW1 ([facility]) Acetaminophen 325 MG / Hydrocodone Brielle trate 7.5 MG Oral Tablet HYDROcodone- Acetaminophen 7.5-325 MG HYDROcodone-Acetaminophen 7.5-325 MG 10/03/2020 12:00:00 AM EDT 1.0 {tablet_as_needed} active HYDROcodone- Acetaminophen 7.5-325 MG eCW1 ([facility]) Acetaminophen 325 MG / Hydrocodone Brielle trate 7.5 MG Oral Tablet HYDROcodone- Acetaminophen 7.5-325 MG HYDROcodone-Acetaminophen 7.5-325 MG 10/03/2020 12:00:00 AM EDT 1.0 {tablet_as_needed} active HYDROcodone- Acetaminophen 7.5-325 MG eCW1 ([facility]) Acetaminophen 325 MG / Hydrocodone Brielle trate 7.5 MG Oral Tablet HYDROcodone- Acetaminophen 7.5-325 MG HYDROcodone-Acetaminophen 7.5-325 MG 10/03/2020 12:00:00 AM EDT 1.0 {tablet_as_needed} active HYDROcodone- Acetaminophen 7.5-325 MG eCW1 ([facility]) Acetaminophen 325 MG / Hydrocodone Brielle trate 7.5 MG Oral Tablet HYDROcodone- Acetaminophen 7.5-325 MG HYDROcodone-Acetaminophen 7.5-325 MG 10/03/2020 12:00:00 AM EDT 1.0 {tablet_as_needed} active HYDROcodone- Acetaminophen 7.5-325 MG eCW1 ([facility]) Acetaminophen 325 MG / Hydrocodone Brielle trate 7.5 MG Oral Tablet HYDROcodone- Acetaminophen 7.5-325 MG HYDROcodone-Acetaminophen 7.5-325 MG 10/03/2020 12:00:00 AM EDT 1.0 {tablet_as_needed} active HYDROcodone- Acetaminophen 7.5-325 MG eCW1 ([facility]) Acetaminophen 325 MG / Hydrocodone Brielle trate 7.5 MG Oral Tablet HYDROcodone- Acetaminophen 7.5-325 MG HYDROcodone-Acetaminophen 7.5-325 MG 10/03/2020 12:00:00 AM EDT 1.0 {tablet_as_needed} active HYDROcodone- Acetaminophen 7.5-325 MG eCW1 ([facility]) Acetaminophen 325 MG / Hydrocodone Brielle trate 7.5 MG Oral Tablet HYDROcodone- Acetaminophen 7.5-325 MG HYDROcodone-Acetaminophen 7.5-325 MG 10/03/2020 12:00:00 AM EDT 1.0 {tablet_as_needed} active HYDROcodone- Acetaminophen 7.5-325 MG eCW1 ([facility]) Acetaminophen 325 MG / Hydrocodone Brielle trate 7.5 MG Oral Tablet HYDROcodone- Acetaminophen 7.5-325 MG HYDROcodone-Acetaminophen 7.5-325 MG 10/03/2020 12:00:00 AM EDT 1.0 {tablet_as_needed} active HYDROcodone- Acetaminophen 7.5-325 MG eCW1 ([facility]) Acetaminophen 325 MG / Hydrocodone Brielle trate 7.5 MG Oral Tablet HYDROcodone- Acetaminophen 7.5-325 MG HYDROcodone-Acetaminophen 7.5-325 MG 10/03/2020 12:00:00 AM EDT 1.0 {tablet_as_needed} active HYDROcodone- Acetaminophen 7.5-325 MG eCW1 ([facility]) Acetaminophen 325 MG / Hydrocodone Brielle trate 7.5 MG Oral Tablet HYDROcodone- Acetaminophen 7.5-325 MG HYDROcodone-Acetaminophen 7.5-325 MG 10/03/2020 12:00:00 AM EDT 1.0 {tablet_as_needed} active HYDROcodone- Acetaminophen 7.5-325 MG eCW1 ([facility]) Acetaminophen 325 MG / Hydrocodone Brielle trate 7.5 MG Oral Tablet HYDROcodone- Acetaminophen 7.5-325 MG HYDROcodone-Acetaminophen 7.5-325 MG 10/03/2020 12:00:00 AM EDT 1.0 {tablet_as_needed} active HYDROcodone- Acetaminophen 7.5-325 MG eCW1 ([facility]) Acetaminophen 325 MG / Hydrocodone Brielle trate 7.5 MG Oral Tablet HYDROcodone- Acetaminophen 7.5-325 MG HYDROcodone-Acetaminophen 7.5-325 MG 10/03/2020 12:00:00 AM EDT 1.0 {tablet_as_needed} active HYDROcodone- Acetaminophen 7.5-325 MG eCW1 ([facility]) Acetaminophen 325 MG / Hydrocodone Brielle trate 7.5 MG Oral Tablet HYDROcodone- Acetaminophen 7.5-325 MG HYDROcodone-Acetaminophen 7.5-325 MG 10/03/2020 12:00:00 AM EDT 1.0 {tablet_as_needed} active HYDROcodone- Acetaminophen 7.5-325 MG eCW1 ([facility]) Acetaminophen 325 MG / Hydrocodone Brielle trate 7.5 MG Oral Tablet HYDROcodone- Acetaminophen 7.5-325 MG HYDROcodone-Acetaminophen 7.5-325 MG 10/03/2020 12:00:00 AM EDT 1.0 {tablet_as_needed} active HYDROcodone- Acetaminophen 7.5-325 MG eCW1 ([facility]) Amlodipine 2.5 MG Oral Tablet amLODIPine Besylate 2.5 MG amLODIPine Besylate 2.5 MG 09/30/2020 12:00:00 AM EDT 1.0 {tablet} activ e amLODIPine Besylate 2.5 MG eCW1 ([facility]) Amlodipine 2.5 MG Oral Tablet amLODIPine Besylate 2.5 MG amLODIPine Besylate 2.5 MG 09/30/2020 12:00:00 AM EDT 1.0 {tablet} activ e amLODIPine Besylate 2.5 MG eCW1 ([facility]) Amlodipine 2.5 MG Oral Tablet amLODIPine Besylate 2.5 MG amLODIPine Besylate 2.5 MG 09/30/2020 12:00:00 AM EDT 1.0 {tablet} activ e amLODIPine Besylate 2.5 MG eCW1 ([facility]) Amlodipine 2.5 MG Oral Tablet amLODIPine Besylate 2.5 MG amLODIPine Besylate 2.5 MG 09/30/2020 12:00:00 AM EDT 2.0 {tablets} acti ve amLODIPine Besylate 2.5 MG eCW1 ([facility]) Amlodipine 2.5 MG Oral Tablet amLODIPine Besylate 2.5 MG amLODIPine Besylate 2.5 MG 09/30/2020 12:00:00 AM EDT 2.0 {tablets} acti ve amLODIPine Besylate 2.5 MG eCW1 ([facility]) Amlodipine 2.5 MG Oral Tablet amLODIPine (NORVASC) 2.5 MG tablet amLODIPine (NORVASC) 2.5 MG tablet 09/30/2020 12:00:00 AM EDT active [facility] Amlodipine 2.5 MG Oral Tablet amLODIPine Besylate 2.5 MG amLODIPine Besylate 2.5 MG 09/30/2020 12:00:00 AM EDT 1.0 {tablet} activ e amLODIPine Besylate 2.5 MG eCW1 ([facility]) Amlodipine 2.5 MG Oral Tablet amLODIPine Besylate 2.5 MG amLODIPine Besylate 2.5 MG 09/30/2020 12:00:00 AM EDT 1.0 {tablet} activ e amLODIPine Besylate 2.5 MG eCW1 ([facility]) Amlodipine 2.5 MG Oral Tablet amLODIPine Besylate 2.5 MG amLODIPine Besylate 2.5 MG 09/30/2020 12:00:00 AM EDT 1.0 {tablet} activ e amLODIPine Besylate 2.5 MG eCW1 ([facility]) Amlodipine 2.5 MG Oral Tablet amLODIPine Besylate 2.5 MG amLODIPine Besylate 2.5 MG 09/30/2020 12:00:00 AM EDT 1.0 {tablet} activ e amLODIPine Besylate 2.5 MG eCW1 ([facility]) Amlodipine 2.5 MG Oral Tablet amLODIPine Besylate 2.5 MG amLODIPine Besylate 2.5 MG 09/30/2020 12:00:00 AM EDT 2.0 {tablets} acti ve amLODIPine Besylate 2.5 MG eCW1 ([facility]) Amlodipine 2.5 MG Oral Tablet amLODIPine Besylate 2.5 MG amLODIPine Besylate 2.5 MG 09/30/2020 12:00:00 AM EDT 2.0 {tablets} acti ve amLODIPine Besylate 2.5 MG eCW1 ([facility]) Amlodipine 2.5 MG Oral Tablet amLODIPine Besylate 2.5 MG amLODIPine Besylate 2.5 MG 09/30/2020 12:00:00 AM EDT 1.0 {tablet} activ e amLODIPine Besylate 2.5 MG eCW1 ([facility]) 3 ML Sodium Hyaluronate 10 MG/ML Prefilled Syringe [Gel-One] Gel-One 09/21/2020 12:00:00 AM EDT active M EDENT ([facility]) Acetaminophen 325 MG / Hydrocodone Brielle trate 7.5 MG Oral Tablet HYDROcodone- Acetaminophen 7.5-325 MG HYDROcodone-Acetaminophen 7.5-325 MG 09/12/2020 12:00:00 AM EDT 1.0 {tablet_as_needed} active HYDROcodone- Acetaminophen 7.5-325 MG eCW1 ([facility]) Acetaminophen 325 MG / Hydrocodone Brielle trate 7.5 MG Oral Tablet HYDROcodone- Acetaminophen 7.5-325 MG HYDROcodone-Acetaminophen 7.5-325 MG 09/12/2020 12:00:00 AM EDT 1.0 {tablet_as_needed} active HYDROcodone- Acetaminophen 7.5-325 MG eCW1 ([facility]) Acetaminophen 325 MG / Hydrocodone Brielle trate 7.5 MG Oral Tablet HYDROcodone- Acetaminophen 7.5-325 MG HYDROcodone-Acetaminophen 7.5-325 MG 09/12/2020 12:00:00 AM EDT 1.0 {tablet_as_needed} active HYDROcodone- Acetaminophen 7.5-325 MG eCW1 ([facility]) Acetaminophen 325 MG / Hydrocodone Brielle trate 7.5 MG Oral Tablet HYDROcodone- Acetaminophen 7.5-325 MG HYDROcodone-Acetaminophen 7.5-325 MG 09/12/2020 12:00:00 AM EDT 1.0 {tablet_as_needed} active HYDROcodone- Acetaminophen 7.5-325 MG W1 ([facility]) Hospital bed _ UNK 08/22/2020 12:00:00 AM EDT active Hospital bed _ eCW1 ([facility]) Hospital bed _ UNK 08/22/2020 12:00:00 AM EDT active Hospital bed _ eCW1 ([facility]) Hospital bed _ UNK 08/22/2020 12:00:00 AM EDT active Hospital bed _ eCW1 ([facility]) Hospital bed _ UNK 08/22/2020 12:00:00 AM EDT active Hospital bed _ eCW1 ([facility]) Hospital bed _ UNK 08/22/2020 12:00:00 AM EDT active Hospital bed _ eCW1 ([facility]) Hospital bed _ K 08/22/2020 12:00:00 AM EDT active Hospital bed _ eCW1 ([facility]) Hospital bed _ K 08/22/2020 12:00:00 AM EDT active Hospital bed _ eCW1 ([facility]) Hospital bed _ K 08/22/2020 12:00:00 AM EDT active Hospital bed _ eCW1 ([facility]) Hospital bed _ K 08/22/2020 12:00:00 AM EDT active Hospital bed _ eCW1 ([facility]) Hospital bed _ [facility] 08/22/2020 12:00:00 AM EDT active Hospital bed _ eCW1 ([facility]) Hospital bed _ [facility] 08/22/2020 12:00:00 AM EDT active Hospital bed _ eCW1 ([facility]) Hospital bed _ [facility] 08/22/2020 12:00:00 AM EDT active Hospital bed _ eCW1 ([facility]) Hospital bed _ [facility] 08/22/2020 12:00:00 AM EDT active Hospital bed _ eCW1 ([facility]) Hospital bed _ [facility] 08/22/2020 12:00:00 AM EDT active Hospital bed _ eCW1 ([facility]) Hospital bed _ K 08/22/2020 12:00:00 AM EDT active Hospital bed _ eCW1 ([facility]) Hospital bed _ K 08/22/2020 12:00:00 AM EDT active Hospital bed _ eCW1 ([facility]) Hospital bed _ K 08/22/2020 12:00:00 AM EDT active Hospital bed _ eCW1 ([facility]) Hospital bed _ K 08/22/2020 12:00:00 AM EDT active Hospital bed _ eCW1 ([facility]) Hospital bed _ K 08/22/2020 12:00:00 AM EDT active Hospital bed _ eCW1 ([facility]) Hospital bed _ [facility] 08/22/2020 12:00:00 AM EDT active Hospital bed _ eCW1 ([facility]) Acetaminophen 325 MG / Hydrocodone Brielle trate 7.5 MG Oral Tablet HYDROcodone- Acetaminophen 7.5-325 MG HYDROcodone-Acetaminophen 7.5-325 MG 08/02/2020 12:00:00 AM EDT 1.0 {tablet_as_needed} active HYDROcodone- Acetaminophen 7.5-325 MG eCW1 ([facility]) Acetaminophen 325 MG / Hydrocodone Brielle trate 7.5 MG Oral Tablet HYDROcodone- Acetaminophen 7.5-325 MG HYDROcodone-Acetaminophen 7.5-325 MG 08/02/2020 12:00:00 AM EDT 1.0 {tablet_as_needed} active HYDROcodone- Acetaminophen 7.5-325 MG eCW1 ([facility]) Acetaminophen 325 MG / Hydrocodone Brielle trate 7.5 MG Oral Tablet HYDROcodone- Acetaminophen 7.5-325 MG HYDROcodone-Acetaminophen 7.5-325 MG 08/02/2020 12:00:00 AM EDT 1.0 {tablet_as_needed} active HYDROcodone- Acetaminophen 7.5-325 MG eCW1 ([facility]) Acetaminophen 325 MG / Hydrocodone Brielle trate 7.5 MG Oral Tablet HYDROcodone- Acetaminophen 7.5-325 MG HYDROcodone-Acetaminophen 7.5-325 MG 08/02/2020 12:00:00 AM EDT 1.0 {tablet_as_needed} active HYDROcodone- Acetaminophen 7.5-325 MG eCW1 ([facility]) Acetaminophen 325 MG / Hydrocodone Brielle trate 7.5 MG Oral Tablet HYDROcodone- Acetaminophen 7.5-325 MG HYDROcodone-Acetaminophen 7.5-325 MG 08/02/2020 12:00:00 AM EDT 1.0 {tablet_as_needed} active HYDROcodone- Acetaminophen 7.5-325 MG eCW1 ([facility]) Acetaminophen 325 MG / Hydrocodone Brielle trate 7.5 MG Oral Tablet HYDROcodone- Acetaminophen 7.5-325 MG HYDROcodone-Acetaminophen 7.5-325 MG 08/02/2020 12:00:00 AM EDT 1.0 {tablet_as_needed} active HYDROcodone- Acetaminophen 7.5-325 MG eCW1 ([facility]) Acetaminophen 325 MG / Hydrocodone Brielle trate 7.5 MG Oral Tablet HYDROcodone- Acetaminophen 7.5-325 MG HYDROcodone-Acetaminophen 7.5-325 MG 08/02/2020 12:00:00 AM EDT 1.0 {tablet_as_needed} active HYDROcodone- Acetaminophen 7.5-325 MG eCW1 ([facility]) Blood Pressure Monitor - Blood Pressure Monitor - 07/29/2020 12:00: 00 AM EDT active Blood Pressure Monitor - eCW1 ([facility]) Blood Pressure Monitor - Blood Pressure Monitor - 07/29/2020 12:00: 00 AM EDT active Blood Pressure Monitor - eCW1 ([facility]) Blood Pressure Monitor - Blood Pressure Monitor - 07/29/2020 12:00: 00 AM EDT active Blood Pressure Monitor - eCW1 ([facility]) Blood Pressure Monitor - Blood Pressure Monitor - 07/29/2020 12:00: 00 AM EDT active Blood Pressure Monitor - eCW1 ([facility]) Blood Pressure Monitor - Blood Pressure Monitor - 07/29/2020 12:00: 00 AM EDT active Blood Pressure Monitor - eCW1 ([facility]) Blood Pressure Monitor - Blood Pressure Monitor - 07/29/2020 12:00: 00 AM EDT active Blood Pressure Monitor - eCW1 ([facility]) Blood Pressure Monitor - Blood Pressure Monitor - 07/29/2020 12:00: 00 AM EDT active Blood Pressure Monitor - eCW1 ([facility]) Blood Pressure Monitor - Blood Pressure Monitor - 07/29/2020 12:00: 00 AM EDT active Blood Pressure Monitor - eCW1 ([facility]) Blood Pressure Monitor - Blood Pressure Monitor - 07/29/2020 12:00: 00 AM EDT active Blood Pressure Monitor - eCW1 ([facility]) Blood Pressure Monitor - Blood Pressure Monitor - 07/29/2020 12:00: 00 AM EDT active Blood Pressure Monitor - eCW1 ([facility]) Blood Pressure Monitor - Blood Pressure Monitor - 07/29/2020 12:00: 00 AM EDT active Blood Pressure Monitor - eCW1 ([facility]) Blood Pressure Monitor - Blood Pressure Monitor - 07/29/2020 12:00: 00 AM EDT active Blood Pressure Monitor - eCW1 ([facility]) Blood Pressure Monitor - Blood Pressure Monitor - 07/29/2020 12:00: 00 AM EDT active Blood Pressure Monitor - eCW1 ([facility]) Blood Pressure Monitor - Blood Pressure Monitor - 07/29/2020 12:00: 00 AM EDT active Blood Pressure Monitor - eCW1 ([facility]) Blood Pressure Monitor - Blood Pressure Monitor - 07/29/2020 12:00: 00 AM EDT active Blood Pressure Monitor - eCW1 ([facility]) Blood Pressure Monitor - Blood Pressure Monitor - 07/29/2020 12:00: 00 AM EDT active Blood Pressure Monitor - eCW1 ([facility]) Blood Pressure Monitor - Blood Pressure Monitor - 07/29/2020 12:00: 00 AM EDT active Blood Pressure Monitor - eCW1 ([facility]) Blood Pressure Monitor - Blood Pressure Monitor - 07/29/2020 12:00: 00 AM EDT active Blood Pressure Monitor - eCW1 ([facility]) Blood Pressure Monitor - Blood Pressure Monitor - 07/29/2020 12:00: 00 AM EDT active Blood Pressure Monitor - eCW1 ([facility]) Blood Pressure Monitor - Blood Pressure Monitor - 07/29/2020 12:00: 00 AM EDT active Blood Pressure Monitor - eCW1 ([facility]) Blood Pressure Monitor - Blood Pressure Monitor - 07/29/2020 12:00: 00 AM EDT active Blood Pressure Monitor - eCW1 ([facility]) Blood Pressure Monitor - Blood Pressure Monitor - 07/29/2020 12:00: 00 AM EDT active Blood Pressure Monitor - eCW1 ([facility]) Blood Pressure Monitor - Blood Pressure Monitor - 07/29/2020 12:00: 00 AM EDT active Blood Pressure Monitor - eCW1 ([facility]) Blood Pressure Kit - Blood Pressure Kit - 07/22/2020 12:00:00 AM EDT active Blood Pressure Kit - eCW1 ([facility]) Blood Pressure Kit - Blood Pressure Kit - 07/22/2020 12:00:00 AM EDT active Blood Pressure Kit - eCW1 ([facility]) Blood Pressure Kit - Blood Pressure Kit - 07/22/2020 12:00:00 AM EDT active Blood Pressure Kit - eCW1 ([facility]) Blood Pressure Kit - Blood Pressure Kit - 07/22/2020 12:00:00 AM EDT active Blood Pressure Kit - eCW1 ([facility]) Blood Pressure Kit - Blood Pressure Kit - 07/22/2020 12:00:00 AM EDT active Blood Pressure Kit - eCW1 ([facility]) Blood Pressure Kit - Blood Pressure Kit - 07/22/2020 12:00:00 AM EDT active Blood Pressure Kit - eCW1 ([facility]) Blood Pressure Kit - Blood Pressure Kit - 07/22/2020 12:00:00 AM EDT active Blood Pressure Kit - eCW1 ([facility]) Blood Pressure Kit - Blood Pressure Kit - 07/22/2020 12:00:00 AM EDT active Blood Pressure Kit - eCW1 ([facility]) Blood Pressure Kit - Blood Pressure Kit - 07/22/2020 12:00:00 AM EDT active Blood Pressure Kit - eCW1 ([facility]) Blood Pressure Kit - Blood Pressure Kit - 07/22/2020 12:00:00 AM EDT active Blood Pressure Kit - eCW1 ([facility]) Blood Pressure Kit - Blood Pressure Kit - 07/22/2020 12:00:00 AM EDT active Blood Pressure Kit - eCW1 ([facility]) Blood Pressure Kit - Blood Pressure Kit - 07/22/2020 12:00:00 AM EDT active Blood Pressure Kit - eCW1 ([facility]) Blood Pressure Kit - Blood Pressure Kit - 07/22/2020 12:00:00 AM EDT active Blood Pressure Kit - eCW1 ([facility]) Blood Pressure Kit - Blood Pressure Kit - 07/22/2020 12:00:00 AM EDT active Blood Pressure Kit - eCW1 ([facility]) Blood Pressure Kit - Blood Pressure Kit - 07/22/2020 12:00:00 AM EDT active Blood Pressure Kit - eCW1 ([facility]) Blood Pressure Kit - Blood Pressure Kit - 07/22/2020 12:00:00 AM EDT active Blood Pressure Kit - eCW1 ([facility]) Blood Pressure Kit - Blood Pressure Kit - 07/22/2020 12:00:00 AM EDT active Blood Pressure Kit - eCW1 ([facility]) Blood Pressure Kit - Blood Pressure Kit - 07/22/2020 12:00:00 AM EDT active Blood Pressure Kit - eCW1 ([facility]) Blood Pressure Kit - Blood Pressure Kit - 07/22/2020 12:00:00 AM EDT active Blood Pressure Kit - eCW1 ([facility]) Blood Pressure Kit - Blood Pressure Kit - 07/22/2020 12:00:00 AM EDT active Blood Pressure Kit - eCW1 ([facility]) Blood Pressure Kit - Blood Pressure Kit - 07/22/2020 12:00:00 AM EDT active Blood Pressure Kit - eCW1 ([facility]) Blood Pressure Kit - Blood Pressure Kit - 07/22/2020 12:00:00 AM EDT active Blood Pressure Kit - eCW1 ([facility]) Blood Pressure Kit - Blood Pressure Kit - 07/22/2020 12:00:00 AM EDT active Blood Pressure Kit - eCW1 ([facility]) Blood Pressure Kit - Blood Pressure Kit - 07/22/2020 12:00:00 AM EDT active Blood Pressure Kit - eCW1 ([facility]) Blood Pressure Kit - Blood Pressure Kit - 07/22/2020 12:00:00 AM EDT active Blood Pressure Kit - eCW1 ([facility]) Spironolactone 25 MG Oral Tablet spironolactone (ALDAC TONE) 25 MG tablet spironolactone (ALDACTONE) 25 MG tablet 07/06/2020 12:00:00 AM EDT 25 mg Oral active Benign essential hypertension Take 1 tablet (25 mg total) by mouth daily [facility] Benign essential hypertension Losartan Potassium 100 MG Oral Tablet losartan (COZAAR ) 100 MG tablet losartan (COZAAR) 100 MG tablet 07/06/2020 12:00:00 AM EDT 100 mg Oral active Benign essential hypertension Take 1 tablet (100 mg total) b y mouth daily [facility] Benign essential hypertension empagliflozin 10 MG Oral Tablet [Jardiance] Jardiance 10 MG Jardiance 10 MG 07/05/2020 12:00:00 AM EDT 1.0 {tablet} active Jardiance 10 MG eCW1 ([facility]) empagliflozin 10 MG Oral Tablet [Jardiance] Jardiance 10 MG Jardiance 10 MG 07/05/2020 12:00:00 AM EDT 1.0 {tablet} active Jardiance 10 MG eCW1 ([facility]) empagliflozin 10 MG Oral Tablet [Jardiance] Jardiance 10 MG Jardiance 10 MG 07/05/2020 12:00:00 AM EDT 1.0 {tablet} active Jardiance 10 MG eCW1 ([facility]) empagliflozin 10 MG Oral Tablet [Jardiance] Jardiance 10 MG Jardiance 10 MG 07/05/2020 12:00:00 AM EDT 1.0 {tablet} active Jardiance 10 MG eCW1 ([facility]) empagliflozin 10 MG Oral Tablet [Jardiance] Jardiance 10 MG Jardiance 10 MG 07/05/2020 12:00:00 AM EDT 1.0 {tablet} active Jardiance 10 MG eCW1 ([facility]) empagliflozin 10 MG Oral Tablet [Jardiance] Jardiance 10 MG Jardiance 10 MG 07/05/2020 12:00:00 AM EDT 1.0 {tablet} active Jardiance 10 MG eCW1 ([facility]) empagliflozin 10 MG Oral Tablet [Jardiance] Jardiance 10 MG Jardiance 10 MG 07/05/2020 12:00:00 AM EDT 1.0 {tablet} active Jardiance 10 MG eCW1 ([facility]) empagliflozin 10 MG Oral Tablet [Jardiance] Jardiance 10 MG Jardiance 10 MG 07/05/2020 12:00:00 AM EDT 1.0 {tablet} active Jardiance 10 MG eCW1 ([facility]) empagliflozin 10 MG Oral Tablet [Jardiance] Jardiance 10 MG Jardiance 10 MG 07/05/2020 12:00:00 AM EDT 1.0 {tablet} active Jardiance 10 MG eCW1 ([facility]) empagliflozin 25 MG Oral Tablet [Jardiance] Jardiance 25 MG Jardiance 25 MG 07/05/2020 12:00:00 AM EDT 1.0 {tablet} active Jardiance 25 MG eCW1 ([facility]) empagliflozin 10 MG Oral Tablet [Jardiance] Jardiance 10 MG Jardiance 10 MG 07/05/2020 12:00:00 AM EDT 1.0 {tablet} active Jardiance 10 MG eCW1 ([facility]) empagliflozin 10 MG Oral Tablet [Jardiance] Jardiance 10 MG Jardiance 10 MG 07/05/2020 12:00:00 AM EDT 1.0 {tablet} active Jardiance 10 MG eCW1 ([facility]) empagliflozin 25 MG Oral Tablet [Jardiance] Jardiance 25 MG Jardiance 25 MG 07/05/2020 12:00:00 AM EDT 1.0 {tablet} active Jardiance 25 MG eCW1 ([facility]) empagliflozin 10 MG Oral Tablet [Jardiance] Jardiance 10 MG Jardiance 10 MG 07/05/2020 12:00:00 AM EDT 1.0 {tablet} active Jardiance 10 MG eCW1 ([facility]) empagliflozin 10 MG Oral Tablet [Jardiance] Jardiance 10 MG Jardiance 10 MG 07/05/2020 12:00:00 AM EDT 1.0 {tablet} active Jardiance 10 MG eCW1 ([facility]) empagliflozin 10 MG Oral Tablet [Jardiance] Jardiance 10 MG Jardiance 10 MG 07/05/2020 12:00:00 AM EDT 1.0 {tablet} active Jardiance 10 MG eCW1 ([facility]) empagliflozin 10 MG Oral Tablet [Jardiance] Jardiance 10 MG Jardiance 10 MG 07/05/2020 12:00:00 AM EDT 1.0 {tablet} active Jardiance 10 MG eCW1 ([facility]) empagliflozin 10 MG Oral Tablet [Jardiance] Jardiance 10 MG Jardiance 10 MG 07/05/2020 12:00:00 AM EDT 1.0 {tablet} active Jardiance 10 MG eCW1 ([facility]) empagliflozin 10 MG Oral Tablet [Jardiance] Jardiance 10 MG Jardiance 10 MG 07/05/2020 12:00:00 AM EDT 1.0 {tablet} active Jardiance 10 MG eCW1 ([facility]) empagliflozin 10 MG Oral Tablet [Jardiance] Jardiance 10 MG Jardiance 10 MG 07/05/2020 12:00:00 AM EDT 1.0 {tablet} active Jardiance 10 MG eCW1 ([facility]) empagliflozin 10 MG Oral Tablet [Jardiance] Jardiance 10 MG Jardiance 10 MG 07/05/2020 12:00:00 AM EDT 1.0 {tablet} active Jardiance 10 MG eCW1 ([facility]) empagliflozin 10 MG Oral Tablet [Jardiance] Jardiance 10 MG Jardiance 10 MG 07/05/2020 12:00:00 AM EDT 1.0 {tablet} active Jardiance 10 MG eCW1 ([facility]) empagliflozin 10 MG Oral Tablet [Jardiance] Jardiance 10 MG Jardiance 10 MG 07/05/2020 12:00:00 AM EDT 1.0 {tablet} active Jardiance 10 MG eCW1 ([facility]) empagliflozin 10 MG Oral Tablet [Jardiance] Jardiance 10 MG Jardiance 10 MG 07/05/2020 12:00:00 AM EDT 1.0 {tablet} active Jardiance 10 MG eCW1 ([facility]) empagliflozin 10 MG Oral Tablet [Jardiance] Jardiance 10 MG Jardiance 10 MG 07/05/2020 12:00:00 AM EDT 1.0 {tablet} active Jardiance 10 MG eCW1 ([facility]) empagliflozin 10 MG Oral Tablet [Jardiance] Jardiance 10 MG Jardiance 10 MG 07/05/2020 12:00:00 AM EDT 1.0 {tablet} active Jardiance 10 MG eCW1 ([facility]) empagliflozin 10 MG Oral Tablet [Jardiance] Jardiance 10 MG Jardiance 10 MG 07/05/2020 12:00:00 AM EDT 1.0 {tablet} active Jardiance 10 MG eCW1 ([facility]) empagliflozin 10 MG Oral Tablet [Jardiance] Jardiance 10 MG Jardiance 10 MG 07/05/2020 12:00:00 AM EDT 1.0 {tablet} active Jardiance 10 MG eCW1 ([facility]) empagliflozin 10 MG Oral Tablet [Jardiance] Jardiance 10 MG Jardiance 10 MG 07/05/2020 12:00:00 AM EDT 1.0 {tablet} active Jardiance 10 MG eCW1 ([facility]) empagliflozin 10 MG Oral Tablet [Jardiance] Jardiance 10 MG Jardiance 10 MG 07/05/2020 12:00:00 AM EDT 1.0 {tablet} active Jardiance 10 MG eCW1 ([facility]) torsemide 10 MG Oral Tablet torsemide (DEMADEX) 10 MG tablet torsemide (DEMADEX) 10 MG tablet 06/08/2020 12:00:00 AM EDT 10 mg Oral acti ve Take 1 tablet (10 mg total) by mouth daily [facility] Losartan Potassium 50 MG Oral Tablet losartan (COZAAR) 50 MG tablet losartan (COZAAR) 50 MG tablet 06/08/2020 12:00:00 AM EDT 75 mg Oral aborted Benign essential hypertensionCongestive heart failure, unspecified HF chronicity, unspecified heart failure type Take 1.5 tablets (75 mg total ) by mouth daily [facility] Benign essential hypertension Congestive heart failure, unspecified HF chronicity, unspecified heart failure type Acetaminophen 325 MG / Hydrocodone Brielle trate 5 MG Oral Tablet Hydrocodone- Acetaminophen 5-325 MG Hydrocodone-Acetaminophen 5-325 MG 06/07/2020 12:00:00 AM EDT 1.0 {tablet_as_needed} active Hydrocodone-Acetaminophen 5-325 MG eCW1 ([facility]) Acetaminophen 325 MG / Hydrocodone Brielle trate 5 MG Oral Tablet Hydrocodone- Acetaminophen 5-325 MG Hydrocodone-Acetaminophen 5-325 MG 06/07/2020 12:00:00 AM EDT 1.0 {tablet_as_needed} active Hydrocodone-Acetaminophen 5-325 MG eCW1 ([facility]) Acetaminophen 325 MG / Hydrocodone Brielle trate 5 MG Oral Tablet Hydrocodone- Acetaminophen 5-325 MG Hydrocodone-Acetaminophen 5-325 MG 06/07/2020 12:00:00 AM EDT 1.0 {tablet_as_needed} active Hydrocodone-Acetaminophen 5-325 MG eCW1 ([facility]) Acetaminophen 325 MG / Hydrocodone Brielle trate 5 MG Oral Tablet Hydrocodone- Acetaminophen 5-325 MG Hydrocodone-Acetaminophen 5-325 MG 06/07/2020 12:00:00 AM EDT 1.0 {tablet_as_needed} active Hydrocodone-Acetaminophen 5-325 MG eCW1 ([facility]) 24 HR Metformin hydrochloride 500 MG Ext ended Release Oral Tablet metFORMIN (GLUCOPHATE-XR) 500 MG 24 hr tablet metFORMIN (GLUCOPHATE-XR) 500 MG 24 hr tablet 06/07/2020 12:00:00 AM EDT aborted [facility] empagliflozin 10 MG Oral Tablet [Jardiance] JARDIANCE 10 MG TABS JARDIANCE 10 MG TABS 06/07/2020 12:00:00 AM EDT aborted [facility] Acetaminophen 325 MG / Hydrocodone Brielle trate 5 MG Oral Tablet Hydrocodone- Acetaminophen 5-325 MG Hydrocodone-Acetaminophen 5-325 MG 06/07/2020 12:00:00 AM EDT 1.0 {tablet_as_needed} active Hydrocodone-Acetaminophen 5-325 MG eCW1 ([facility]) Acetaminophen 325 MG / Hydrocodone Brielle trate 5 MG Oral Tablet Hydrocodone- Acetaminophen 5-325 MG Hydrocodone-Acetaminophen 5-325 MG 06/07/2020 12:00:00 AM EDT 1.0 {tablet_as_needed} active Hydrocodone-Acetaminophen 5-325 MG eCW1 ([facility]) Acetaminophen 325 MG / Hydrocodone Brielle trate 5 MG Oral Tablet Hydrocodone- Acetaminophen 5-325 MG Hydrocodone-Acetaminophen 5-325 MG 06/07/2020 12:00:00 AM EDT 1.0 {tablet_as_needed} active Hydrocodone-Acetaminophen 5-325 MG eCW1 ([facility]) Acetaminophen 325 MG / Hydrocodone Brielle trate 5 MG Oral Tablet Hydrocodone- Acetaminophen 5-325 MG Hydrocodone-Acetaminophen 5-325 MG 06/07/2020 12:00:00 AM EDT 1.0 {tablet_as_needed} active Hydrocodone-Acetaminophen 5-325 MG eCW1 ([facility]) Acetaminophen 325 MG / Hydrocodone Brielle trate 5 MG Oral Tablet Hydrocodone- Acetaminophen 5-325 MG Hydrocodone-Acetaminophen 5-325 MG 06/07/2020 12:00:00 AM EDT 1.0 {tablet_as_needed} active Hydrocodone-Acetaminophen 5-325 MG eCW1 ([facility]) Acetaminophen 325 MG / Hydrocodone Brielle trate 5 MG Oral Tablet Hydrocodone- Acetaminophen 5-325 MG Hydrocodone-Acetaminophen 5-325 MG 06/07/2020 12:00:00 AM EDT 1.0 {tablet_as_needed} active Hydrocodone-Acetaminophen 5-325 MG eCW1 ([facility]) Acetaminophen 325 MG / Hydrocodone Brielle trate 5 MG Oral Tablet Hydrocodone- Acetaminophen 5-325 MG Hydrocodone-Acetaminophen 5-325 MG 06/07/2020 12:00:00 AM EDT 1.0 {tablet_as_needed} active Hydrocodone-Acetaminophen 5-325 MG eCW1 ([facility]) Acetaminophen 325 MG / Hydrocodone Brielle trate 5 MG Oral Tablet Hydrocodone- Acetaminophen 5-325 MG Hydrocodone-Acetaminophen 5-325 MG 06/07/2020 12:00:00 AM EDT 1.0 {tablet_as_needed} active Hydrocodone-Acetaminophen 5-325 MG eCW1 ([facility]) Acetaminophen 325 MG / Hydrocodone Brielle trate 5 MG Oral Tablet Hydrocodone- Acetaminophen 5-325 MG Hydrocodone-Acetaminophen 5-325 MG 06/07/2020 12:00:00 AM EDT 1.0 {tablet_as_needed} active Hydrocodone-Acetaminophen 5-325 MG eCW1 ([facility]) Acetaminophen 325 MG / Hydrocodone Brielle trate 5 MG Oral Tablet Hydrocodone- Acetaminophen 5-325 MG Hydrocodone-Acetaminophen 5-325 MG 06/07/2020 12:00:00 AM EDT 1.0 {tablet_as_needed} active Hydrocodone-Acetaminophen 5-325 MG eCW1 ([facility]) Acetaminophen 325 MG / Hydrocodone Brielle trate 5 MG Oral Tablet Hydrocodone- Acetaminophen 5-325 MG Hydrocodone-Acetaminophen 5-325 MG 06/07/2020 12:00:00 AM EDT 1.0 {tablet_as_needed} active Hydrocodone-Acetaminophen 5-325 MG eCW1 ([facility]) Levothyroxine Sodium 0.025 MG Oral Tablet Levothyroxin e Sodium 25 MCG Levothyroxine Sodium 25 MCG 06/03/2020 12:00:00 AM EDT active Levothyroxine Sodium 25 MCG eCW1 ([facility]) Levothyroxine Sodium 0.025 MG Oral Tablet Levothyroxin e Sodium 25 MCG Levothyroxine Sodium 25 MCG 06/03/2020 12:00:00 AM EDT active Levothyroxine Sodium 25 MCG eCW1 ([facility]) Levothyroxine Sodium 0.025 MG Oral Tablet Levothyroxin e Sodium 25 MCG Levothyroxine Sodium 25 MCG 06/03/2020 12:00:00 AM EDT active Levothyroxine Sodium 25 MCG eCW1 ([facility]) Levothyroxine Sodium 0.025 MG Oral Tablet Levothyroxin e Sodium 25 MCG Levothyroxine Sodium 25 MCG 06/03/2020 12:00:00 AM EDT active Levothyroxine Sodium 25 MCG eCW1 ([facility]) Levothyroxine Sodium 0.025 MG Oral Tablet Levothyroxin e Sodium 25 MCG Levothyroxine Sodium 25 MCG 06/03/2020 12:00:00 AM EDT active Levothyroxine Sodium 25 MCG eCW1 ([facility]) Levothyroxine Sodium 0.025 MG Oral Tablet Levothyroxin e Sodium 25 MCG Levothyroxine Sodium 25 MCG 06/03/2020 12:00:00 AM EDT active Levothyroxine Sodium 25 MCG eCW1 ([facility]) Levothyroxine Sodium 0.025 MG Oral Tablet Levothyroxin e Sodium 25 MCG Levothyroxine Sodium 25 MCG 06/03/2020 12:00:00 AM EDT active Levothyroxine Sodium 25 MCG eCW1 ([facility]) Levothyroxine Sodium 0.025 MG Oral Tablet Levothyroxin e Sodium 25 MCG Levothyroxine Sodium 25 MCG 06/03/2020 12:00:00 AM EDT active Levothyroxine Sodium 25 MCG eCW1 ([facility]) Levothyroxine Sodium 0.025 MG Oral Tablet Levothyroxin e Sodium 25 MCG Levothyroxine Sodium 25 MCG 06/03/2020 12:00:00 AM EDT active Levothyroxine Sodium 25 MCG eCW1 ([facility]) Levothyroxine Sodium 0.025 MG Oral Tablet Levothyroxin e Sodium 25 MCG Levothyroxine Sodium 25 MCG 06/03/2020 12:00:00 AM EDT active Levothyroxine Sodium 25 MCG eCW1 ([facility]) Levothyroxine Sodium 0.025 MG Oral Tablet Levothyroxin e Sodium 25 MCG Levothyroxine Sodium 25 MCG 06/03/2020 12:00:00 AM EDT active Levothyroxine Sodium 25 MCG eCW1 ([facility]) Levothyroxine Sodium 0.025 MG Oral Tablet Levothyroxin e Sodium 25 MCG Levothyroxine Sodium 25 MCG 06/03/2020 12:00:00 AM EDT active Levothyroxine Sodium 25 MCG eCW1 ([facility]) Levothyroxine Sodium 0.025 MG Oral Tablet Levothyroxin e Sodium 25 MCG Levothyroxine Sodium 25 MCG 06/03/2020 12:00:00 AM EDT active Levothyroxine Sodium 25 MCG eCW1 ([facility]) Levothyroxine Sodium 0.025 MG Oral Tablet Levothyroxin e Sodium 25 MCG Levothyroxine Sodium 25 MCG 06/03/2020 12:00:00 AM EDT active Levothyroxine Sodium 25 MCG eCW1 ([facility]) Levothyroxine Sodium 0.025 MG Oral Tablet Levothyroxin e Sodium 25 MCG Levothyroxine Sodium 25 MCG 06/03/2020 12:00:00 AM EDT active Levothyroxine Sodium 25 MCG eCW1 ([facility]) Levothyroxine Sodium 0.025 MG Oral Tablet Levothyroxin e Sodium 25 MCG Levothyroxine Sodium 25 MCG 06/03/2020 12:00:00 AM EDT active Levothyroxine Sodium 25 MCG eCW1 ([facility]) Levothyroxine Sodium 0.025 MG Oral Tablet Levothyroxin e Sodium 25 MCG Levothyroxine Sodium 25 MCG 06/03/2020 12:00:00 AM EDT active Levothyroxine Sodium 25 MCG eCW1 ([facility]) Levothyroxine Sodium 0.025 MG Oral Tablet Levothyroxin e Sodium 25 MCG Levothyroxine Sodium 25 MCG 06/03/2020 12:00:00 AM EDT active Levothyroxine Sodium 25 MCG eCW1 ([facility]) Levothyroxine Sodium 0.025 MG Oral Tablet Levothyroxin e Sodium 25 MCG Levothyroxine Sodium 25 MCG 06/03/2020 12:00:00 AM EDT active Levothyroxine Sodium 25 MCG eCW1 ([facility]) Levothyroxine Sodium 0.025 MG Oral Tablet Levothyroxin e Sodium 25 MCG Levothyroxine Sodium 25 MCG 06/03/2020 12:00:00 AM EDT active Levothyroxine Sodium 25 MCG eCW1 ([facility]) Levothyroxine Sodium 0.025 MG Oral Tablet Levothyroxin e Sodium 25 MCG Levothyroxine Sodium 25 MCG 06/03/2020 12:00:00 AM EDT active Levothyroxine Sodium 25 MCG eCW1 ([facility]) Levothyroxine Sodium 0.025 MG Oral Tablet Levothyroxin e Sodium 25 MCG Levothyroxine Sodium 25 MCG 06/03/2020 12:00:00 AM EDT active Levothyroxine Sodium 25 MCG eCW1 ([facility]) Levothyroxine Sodium 0.025 MG Oral Tablet Levothyroxin e Sodium 25 MCG Levothyroxine Sodium 25 MCG 06/03/2020 12:00:00 AM EDT active Levothyroxine Sodium 25 MCG eCW1 ([facility]) Levothyroxine Sodium 0.025 MG Oral Tablet Levothyroxin e Sodium 25 MCG Levothyroxine Sodium 25 MCG 06/03/2020 12:00:00 AM EDT active Levothyroxine Sodium 25 MCG eCW1 ([facility]) Levothyroxine Sodium 0.025 MG Oral Tablet Levothyroxin e Sodium 25 MCG Levothyroxine Sodium 25 MCG 06/03/2020 12:00:00 AM EDT active Levothyroxine Sodium 25 MCG eCW1 ([facility]) Levothyroxine Sodium 0.025 MG Oral Tablet Levothyroxin e Sodium 25 MCG Levothyroxine Sodium 25 MCG 06/03/2020 12:00:00 AM EDT active Levothyroxine Sodium 25 MCG eCW1 ([facility]) Levothyroxine Sodium 0.025 MG Oral Tablet Levothyroxin e Sodium 25 MCG Levothyroxine Sodium 25 MCG 06/03/2020 12:00:00 AM EDT active Levothyroxine Sodium 25 MCG eCW1 ([facility]) Losartan Potassium 50 MG Oral Tablet Losartan Potassium 50 M G 05/17/2020 12:00:00 AM EDT 1.5 {tablets} active L osartan Potassium 50 MG eCW1 ([facility]) Losartan Potassium 50 MG Oral Tablet Losartan Potassium 50 M G 05/17/2020 12:00:00 AM EDT active Losartan Potassium 50 MG eCW1 ([facility]) Losartan Potassium 50 MG Oral Tablet Losartan Potassium 50 M G 05/17/2020 12:00:00 AM EDT 1.5 {tablets} active L osartan Potassium 50 MG eCW1 ([facility]) Losartan Potassium 100 MG Oral Tablet Losartan Potassium 100 MG 05/17/2020 12:00:00 AM EDT 1.0 {tablet} active Lo sartan Potassium 100 MG eCW1 ([facility]) Losartan Potassium 50 MG Oral Tablet Losartan Potassium 50 M G 05/17/2020 12:00:00 AM EDT active Losartan Potassium 50 MG eCW1 ([facility]) Losartan Potassium 50 MG Oral Tablet Losartan Potassium 50 M G 05/17/2020 12:00:00 AM EDT 1.5 {tablets} active L osartan Potassium 50 MG eCW1 ([facility]) Losartan Potassium 100 MG Oral Tablet Losartan Potassium 100 MG 05/17/2020 12:00:00 AM EDT 1.0 {tablet} active Lo sartan Potassium 100 MG eCW1 ([facility]) Losartan Potassium 50 MG Oral Tablet Losartan Potassium 50 M G 05/17/2020 12:00:00 AM EDT active Losartan Potassium 50 MG eCW1 ([facility]) Losartan Potassium 50 MG Oral Tablet losartan (COZAAR) 50 MG tablet losartan (COZAAR) 50 MG tablet 05/17/2020 12:00:00 AM EDT a [facility] Losartan Potassium 100 MG Oral Tablet Losartan Potassium 100 MG 05/17/2020 12:00:00 AM EDT 1.0 {tablet} active Lo sartan Potassium 100 MG eCW1 ([facility]) Losartan Potassium 50 MG Oral Tablet Losartan Potassium 50 M G 05/17/2020 12:00:00 AM EDT active Losartan Potassium 50 MG eCW1 ([facility]) Losartan Potassium 100 MG Oral Tablet Losartan Potassium 100 MG 05/17/2020 12:00:00 AM EDT 1.0 {tablet} active Lo sartan Potassium 100 MG eCW1 ([facility]) Losartan Potassium 50 MG Oral Tablet Losartan Potassium 50 M G 05/17/2020 12:00:00 AM EDT active Losartan Potassium 50 MG eCW1 ([facility]) Losartan Potassium 50 MG Oral Tablet Losartan Potassium 50 M G 05/17/2020 12:00:00 AM EDT active Losartan Potassium 50 MG eCW1 ([facility]) Losartan Potassium 50 MG Oral Tablet Losartan Potassium 50 M G 05/17/2020 12:00:00 AM EDT 1.5 {tablets} active L osartan Potassium 50 MG eCW1 ([facility]) Losartan Potassium 50 MG Oral Tablet Losartan Potassium 50 M G 05/17/2020 12:00:00 AM EDT 1.5 {tablets} active L osartan Potassium 50 MG eCW1 ([facility]) Losartan Potassium 50 MG Oral Tablet Losartan Potassium 50 M G 05/17/2020 12:00:00 AM EDT active Losartan Potassium 50 MG eCW1 ([facility]) Losartan Potassium 50 MG Oral Tablet Losartan Potassium 50 M G 05/17/2020 12:00:00 AM EDT active Losartan Potassium 50 MG eCW1 ([facility]) Losartan Potassium 50 MG Oral Tablet Losartan Potassium 50 M G 05/17/2020 12:00:00 AM EDT active Losartan Potassium 50 MG eCW1 ([facility]) Losartan Potassium 100 MG Oral Tablet Losartan Potassium 100 MG 05/17/2020 12:00:00 AM EDT 1.0 {tablet} active Lo sartan Potassium 100 MG eCW1 ([facility]) Losartan Potassium 50 MG Oral Tablet Losartan Potassium 50 M G 05/17/2020 12:00:00 AM EDT active Losartan Potassium 50 MG eCW1 ([facility]) Losartan Potassium 50 MG Oral Tablet Losartan Potassium 50 M G 05/17/2020 12:00:00 AM EDT active Losartan Potassium 50 MG eCW1 ([facility]) Losartan Potassium 100 MG Oral Tablet Losartan Potassium 100 MG 05/17/2020 12:00:00 AM EDT 1.0 {tablet} active Lo sartan Potassium 100 MG eCW1 ([facility]) Losartan Potassium 50 MG Oral Tablet Losartan Potassium 50 M G 05/17/2020 12:00:00 AM EDT active Losartan Potassium 50 MG eCW1 ([facility]) Losartan Potassium 50 MG Oral Tablet Losartan Potassium 50 M G 05/17/2020 12:00:00 AM EDT active Losartan Potassium 50 MG eCW1 ([facility]) Losartan Potassium 50 MG Oral Tablet Losartan Potassium 50 M G 05/17/2020 12:00:00 AM EDT active Losartan Potassium 50 MG eCW1 ([facility]) Losartan Potassium 50 MG Oral Tablet Losartan Potassium 50 M G 05/17/2020 12:00:00 AM EDT active Losartan Potassium 50 MG eCW1 ([facility]) Losartan Potassium 50 MG Oral Tablet Losartan Potassium 50 M G 05/17/2020 12:00:00 AM EDT active Losartan Potassium 50 MG eCW1 ([facility]) Losartan Potassium 50 MG Oral Tablet Losartan Potassium 50 M G 05/17/2020 12:00:00 AM EDT 1.5 {tablets} active L osartan Potassium 50 MG eCW1 ([facility]) Losartan Potassium 50 MG Oral Tablet Losartan Potassium 50 M G 05/17/2020 12:00:00 AM EDT active Losartan Potassium 50 MG eCW1 ([facility]) Losartan Potassium 50 MG Oral Tablet Losartan Potassium 50 M G 05/17/2020 12:00:00 AM EDT active Losartan Potassium 50 MG eCW1 ([facility]) Losartan Potassium 50 MG Oral Tablet Losartan Potassium 50 M G 05/17/2020 12:00:00 AM EDT active Losartan Potassium 50 MG eCW1 ([facility]) Losartan Potassium 50 MG Oral Tablet Losartan Potassium 50 M G 05/17/2020 12:00:00 AM EDT active Losartan Potassium 50 MG eCW1 ([facility]) Losartan Potassium 100 MG Oral Tablet Losartan Potassium 100 MG 05/17/2020 12:00:00 AM EDT 1.0 {tablet} active Lo sartan Potassium 100 MG eCW1 ([facility]) Losartan Potassium 50 MG Oral Tablet Losartan Potassium 50 M G 05/17/2020 12:00:00 AM EDT active Losartan Potassium 50 MG eCW1 ([facility]) Losartan Potassium 100 MG Oral Tablet Losartan Potassium 100 MG 05/17/2020 12:00:00 AM EDT 1.0 {tablet} active Lo sartan Potassium 100 MG eCW1 ([facility]) Losartan Potassium 100 MG Oral Tablet Losartan Potassium 100 MG 05/17/2020 12:00:00 AM EDT 1.0 {tablet} active Lo sartan Potassium 100 MG eCW1 ([facility]) Losartan Potassium 50 MG Oral Tablet Losartan Potassium 50 M G 05/17/2020 12:00:00 AM EDT active Losartan Potassium 50 MG eCW1 ([facility]) Losartan Potassium 100 MG Oral Tablet Losartan Potassium 100 MG 05/17/2020 12:00:00 AM EDT 1.0 {tablet} active Lo sartan Potassium 100 MG eCW1 ([facility]) Losartan Potassium 100 MG Oral Tablet Losartan Potassium 100 MG 05/17/2020 12:00:00 AM EDT 1.0 {tablet} active Lo sartan Potassium 100 MG eCW1 ([facility]) Losartan Potassium 100 MG Oral Tablet Losartan Potassium 100 MG 05/17/2020 12:00:00 AM EDT 1.0 {tablet} active Lo sartan Potassium 100 MG eCW1 ([facility]) Acetaminophen 325 MG / Hydrocodone Brielle trate 5 MG Oral Tablet Hydrocodone- Acetaminophen 5-325 MG Hydrocodone-Acetaminophen 5-325 MG 05/12/2020 12:00:00 AM EDT 1.0 {tablet_as_needed} active Hydrocodone-Acetaminophen 5-325 MG eCW1 ([facility]) Acetaminophen 325 MG / Hydrocodone Brielle trate 5 MG Oral Tablet Hydrocodone- Acetaminophen 5-325 MG Hydrocodone-Acetaminophen 5-325 MG 05/12/2020 12:00:00 AM EDT 1.0 {tablet_as_needed} active Hydrocodone-Acetaminophen 5-325 MG eCW1 ([facility]) Acetaminophen 325 MG / Hydrocodone Brielle trate 5 MG Oral Tablet Hydrocodone- Acetaminophen 5-325 MG Hydrocodone-Acetaminophen 5-325 MG 05/12/2020 12:00:00 AM EDT 1.0 {tablet_as_needed} active Hydrocodone-Acetaminophen 5-325 MG eCW1 ([facility]) Acetaminophen 325 MG / Hydrocodone Brielle trate 5 MG Oral Tablet Hydrocodone- Acetaminophen 5-325 MG Hydrocodone-Acetaminophen 5-325 MG 05/12/2020 12:00:00 AM EDT 1.0 {tablet_as_needed} active Hydrocodone-Acetaminophen 5-325 MG eCW1 ([facility]) empagliflozin 10 MG Oral Tablet [Jardiance] Jardiance 10 MG Jardiance 10 MG 04/21/2020 12:00:00 AM EST 1.0 {tablet} active Jardiance 10 MG eCW1 ([facility]) empagliflozin 10 MG Oral Tablet [Jardiance] Jardiance 10 MG Jardiance 10 MG 04/21/2020 12:00:00 AM EST 1.0 {tablet} active Jardiance 10 MG eCW1 ([facility]) empagliflozin 10 MG Oral Tablet [Jardiance] Jardiance 10 MG Jardiance 10 MG 04/21/2020 12:00:00 AM EST 1.0 {tablet} active Jardiance 10 MG eCW1 ([facility]) empagliflozin 10 MG Oral Tablet [Jardiance] Jardiance 10 MG Jardiance 10 MG 04/21/2020 12:00:00 AM EST 1.0 {tablet} active Jardiance 10 MG eCW1 ([facility]) empagliflozin 10 MG Oral Tablet [Jardiance] Jardiance 10 MG Jardiance 10 MG 04/21/2020 12:00:00 AM EST 1.0 {tablet} active Jardiance 10 MG eCW1 ([facility]) carvedilol 6.25 MG Oral Tablet carvedilol (COREG) 6.25 MG tablet carvedilol (COREG) 6.25 MG tablet 04/15/2020 12:00:00 AM EST 6.25 mg Oral aborted Take 1 tablet (6.25 mg total) by mouth 2 (two) times a day [facility] Acetaminophen 325 MG / Hydrocodone Brielle trate 5 MG Oral Tablet Hydrocodone- Acetaminophen 5-325 MG Hydrocodone-Acetaminophen 5-325 MG 04/11/2020 12:00:00 AM EST 1.0 {tablet_as_needed} active Hydrocodone-Acetaminophen 5-325 MG eCW1 ([facility]) Acetaminophen 325 MG / Hydrocodone Brielle trate 5 MG Oral Tablet Hydrocodone- Acetaminophen 5-325 MG Hydrocodone-Acetaminophen 5-325 MG 04/11/2020 12:00:00 AM EST 1.0 {tablet_as_needed} active Hydrocodone-Acetaminophen 5-325 MG eCW1 ([facility]) Acetaminophen 325 MG / Hydrocodone [place] trate 5 MG Oral Tablet Hydrocodone- Acetaminophen 5-325 MG Hydrocodone-Acetaminophen 5-325 MG 04/11/2020 12:00:00 AM EST 1.0 {tablet_as_needed} active Hydrocodone-Acetaminophen 5-325 MG eCW1 ([facility]) Acetaminophen 325 MG / Hydrocodone Brielle trate 5 MG Oral Tablet Hydrocodone- Acetaminophen 5-325 MG Hydrocodone-Acetaminophen 5-325 MG 04/11/2020 12:00:00 AM EST 1.0 {tablet_as_needed} active Hydrocodone-Acetaminophen 5-325 MG eCW1 ([facility]) Acetaminophen 325 MG / Hydrocodone Brielle trate 5 MG Oral Tablet Hydrocodone- Acetaminophen 5-325 MG Hydrocodone-Acetaminophen 5-325 MG 04/11/2020 12:00:00 AM EST 1.0 {tablet_as_needed} active Hydrocodone-Acetaminophen 5-325 MG eCW1 ([facility]) Acetaminophen 325 MG / Hydrocodone Brielle trate 5 MG Oral Tablet Hydrocodone- Acetaminophen 5-325 MG Hydrocodone-Acetaminophen 5-325 MG 04/11/2020 12:00:00 AM EST 1.0 {tablet_as_needed} active Hydrocodone-Acetaminophen 5-325 MG eCW1 ([facility]) Acetaminophen 325 MG / Hydrocodone Brielle trate 5 MG Oral Tablet Hydrocodone- Acetaminophen 5-325 MG Hydrocodone-Acetaminophen 5-325 MG 04/11/2020 12:00:00 AM EST 1.0 {tablet_as_needed} active Hydrocodone-Acetaminophen 5-325 MG eCW1 ([facility]) Amlodipine 2.5 MG Oral Tablet AmLODIPine Besylate 2.5 MG AmLODIPine Besylate 2.5 MG 04/04/2020 12:00:00 AM EST 1.0 {tablet} activ e AmLODIPine Besylate 2.5 MG eCW1 ([facility]) Amlodipine 2.5 MG Oral Tablet AmLODIPine Besylate 2.5 MG AmLODIPine Besylate 2.5 MG 04/04/2020 12:00:00 AM EST 1.0 {tablet} activ e AmLODIPine Besylate 2.5 MG eCW1 ([facility]) Amlodipine 2.5 MG Oral Tablet AmLODIPine Besylate 2.5 MG AmLODIPine Besylate 2.5 MG 04/04/2020 12:00:00 AM EST 1.0 {tablet} activ e AmLODIPine Besylate 2.5 MG eCW1 ([facility]) Amlodipine 2.5 MG Oral Tablet AmLODIPine Besylate 2.5 MG AmLODIPine Besylate 2.5 MG 04/04/2020 12:00:00 AM EST 1.0 {tablet} activ e AmLODIPine Besylate 2.5 MG eCW1 ([facility]) Amlodipine 2.5 MG Oral Tablet AmLODIPine Besylate 2.5 MG AmLODIPine Besylate 2.5 MG 04/04/2020 12:00:00 AM EST 1.0 {tablet} activ e AmLODIPine Besylate 2.5 MG eCW1 ([facility]) Amlodipine 2.5 MG Oral Tablet AmLODIPine Besylate 2.5 MG AmLODIPine Besylate 2.5 MG 04/04/2020 12:00:00 AM EST 1.0 {tablet} activ e AmLODIPine Besylate 2.5 MG eCW1 ([facility]) Amlodipine 2.5 MG Oral Tablet AmLODIPine Besylate 2.5 MG AmLODIPine Besylate 2.5 MG 04/04/2020 12:00:00 AM EST 1.0 {tablet} activ e AmLODIPine Besylate 2.5 MG eCW1 ([facility]) Amlodipine 2.5 MG Oral Tablet AmLODIPine Besylate 2.5 MG AmLODIPine Besylate 2.5 MG 04/04/2020 12:00:00 AM EST 1.0 {tablet} activ e AmLODIPine Besylate 2.5 MG eCW1 ([facility]) Amlodipine 2.5 MG Oral Tablet amLODIPine (NORVASC) 2.5 MG tablet amLODIPine (NORVASC) 2.5 MG tablet 04/04/2020 12:00:00 AM EST 5 mg Oral aborted Take 5 mg by mouth daily [facility] Amlodipine 2.5 MG Oral Tablet AmLODIPine Besylate 2.5 MG AmLODIPine Besylate 2.5 MG 04/04/2020 12:00:00 AM EST 1.0 {tablet} activ e AmLODIPine Besylate 2.5 MG eCW1 ([facility]) Potassium Chloride 10 MEQ Extended Relea se Oral Tablet potassium chloride (K- DUR) 10 MEQ tablet potassium chloride (K-DUR) 10 MEQ tablet 04/02/2020 12 :00:00 AM EST aborted [facility] 24 HR Metformin hydrochloride 500 MG Ext ended Release Oral Tablet metFORMIN (GLUCOPHATE-XR) 500 MG 24 hr tablet metFORMIN (GLUCOPHATE-XR) 500 MG 24 hr tablet 03/19/2020 12:00:00 AM EST aborted [facility] Sucralfate 1000 MG Oral Tablet [Carafate] Carafate 1 GM Brooke fate 1 GM 03/08/2020 12:00:00 AM EST 1.0 {tablet_on_an_empty_stomach} active Carafate 1 GM W1 ([facility]) Sucralfate 1000 MG Oral Tablet [Carafate] Carafate 1 GM Brooke fate 1 GM 03/08/2020 12:00:00 AM EST 1.0 {tablet_on_an_empty_stomach} active Carafate 1 GM [facility] ([facility]) Sucralfate 1000 MG Oral Tablet [Carafate] Carafate 1 GM Brooke fate 1 GM 03/08/2020 12:00:00 AM EST 1.0 {tablet_on_an_empty_stomach} active Carafate 1 GM W1 ([facility]) Sucralfate 1000 MG Oral Tablet [Carafate] Carafate 1 GM Brooke fate 1 GM 03/08/2020 12:00:00 AM EST 1.0 {tablet_on_an_empty_stomach} active Carafate 1 GM W1 ([facility]) Sucralfate 1000 MG Oral Tablet [Carafate] Carafate 1 GM Brooke fate 1 GM 03/08/2020 12:00:00 AM EST 1.0 {tablet_on_an_empty_stomach} active Carafate 1 GM W1 ([facility]) Sucralfate 1000 MG Oral Tablet [Carafate] Carafate 1 GM Brooke fate 1 GM 03/08/2020 12:00:00 AM EST 1.0 {tablet_on_an_empty_stomach} active Carafate 1 GM eCW1 ([facility]) Sucralfate 1000 MG Oral Tablet sucralfate (CARAFATE) 1 g tablet sucralfate (CARAFATE) 1 g tablet 03/08/2020 12:00:00 AM EST 1 g Oral active Take 1 g by mouth 3 (three) times a day [facility] Acetaminophen 325 MG / Hydrocodone Brielle trate 5 MG Oral Tablet Hydrocodone- Acetaminophen 5-325 MG Hydrocodone-Acetaminophen 5-325 MG 02/25/2020 12:00:00 AM EST 1.0 {tablet_as_needed} active Hydrocodone-Acetaminophen 5-325 MG eCW1 ([facility]) Acetaminophen 325 MG / Hydrocodone Brielle trate 5 MG Oral Tablet Hydrocodone- Acetaminophen 5-325 MG Hydrocodone-Acetaminophen 5-325 MG 02/25/2020 12:00:00 AM EST 1.0 {tablet_as_needed} active Hydrocodone-Acetaminophen 5-325 MG eCW1 ([facility]) Acetaminophen 325 MG / Hydrocodone Brielle trate 5 MG Oral Tablet Hydrocodone- Acetaminophen 5-325 MG Hydrocodone-Acetaminophen 5-325 MG 02/25/2020 12:00:00 AM EST 1.0 {tablet_as_needed} active Hydrocodone-Acetaminophen 5-325 MG eCW1 ([facility]) Acetaminophen 325 MG / Hydrocodone Brielle trate 5 MG Oral Tablet Hydrocodone- Acetaminophen 5-325 MG Hydrocodone-Acetaminophen 5-325 MG 02/25/2020 12:00:00 AM EST 1.0 {tablet_as_needed} active Hydrocodone-Acetaminophen 5-325 MG eCW1 ([facility]) Acetaminophen 325 MG / Hydrocodone Brielle trate 5 MG Oral Tablet Hydrocodone- Acetaminophen 5-325 MG Hydrocodone-Acetaminophen 5-325 MG 02/25/2020 12:00:00 AM EST 1.0 {tablet_as_needed} active Hydrocodone-Acetaminophen 5-325 MG eCW1 ([facility]) Acetaminophen 325 MG / Hydrocodone Brielle trate 5 MG Oral Tablet Hydrocodone- Acetaminophen 5-325 MG Hydrocodone-Acetaminophen 5-325 MG 02/25/2020 12:00:00 AM EST 1.0 {tablet_as_needed} active Hydrocodone-Acetaminophen 5-325 MG eCW1 ([facility]) Acetaminophen 325 MG / Hydrocodone Brielle trate 5 MG Oral Tablet Hydrocodone- Acetaminophen 5-325 MG Hydrocodone-Acetaminophen 5-325 MG 02/25/2020 12:00:00 AM EST 1.0 {tablet_as_needed} active Hydrocodone-Acetaminophen 5-325 MG eCW1 ([facility]) Acetaminophen 325 MG / Hydrocodone Brielle trate 5 MG Oral Tablet Hydrocodone- Acetaminophen 5-325 MG Hydrocodone-Acetaminophen 5-325 MG 02/25/2020 12:00:00 AM EST 1.0 {tablet_as_needed} active Hydrocodone-Acetaminophen 5-325 MG eCW1 ([facility]) Acetaminophen 325 MG / Hydrocodone Brielle trate 5 MG Oral Tablet Hydrocodone- Acetaminophen 5-325 MG Hydrocodone-Acetaminophen 5-325 MG 02/25/2020 12:00:00 AM EST 1.0 {tablet_as_needed} active Hydrocodone-Acetaminophen 5-325 MG eCW1 ([facility]) Acetaminophen 325 MG / Hydrocodone Brielle trate 5 MG Oral Tablet Hydrocodone- Acetaminophen 5-325 MG Hydrocodone-Acetaminophen 5-325 MG 02/25/2020 12:00:00 AM EST 1.0 {tablet_as_needed} active Hydrocodone-Acetaminophen 5-325 MG eCW1 ([facility]) torsemide 20 MG Oral Tablet Torsemide 20 MG Torsemide 20 MG 02/24/2020 12:00:00 AM EST active Torsemide 20 MG e CW1 ([facility]) torsemide 20 MG Oral Tablet Torsemide 20 MG Torsemide 20 MG 02/24/2020 12:00:00 AM EST active Torsemide 20 MG e CW1 ([facility]) torsemide 10 MG Oral Tablet Torsemide 10 MG Torsemide 10 MG 02/24/2020 12:00:00 AM EST active Torsemide 10 MG e CW1 ([facility]) torsemide 10 MG Oral Tablet Torsemide 10 MG Torsemide 10 MG 02/24/2020 12:00:00 AM EST active Torsemide 10 MG e CW1 ([facility]) torsemide 20 MG Oral Tablet Torsemide 20 MG Torsemide 20 MG 02/24/2020 12:00:00 AM EST active Torsemide 20 MG e CW1 ([facility]) torsemide 20 MG Oral Tablet Torsemide 20 MG Torsemide 20 MG 02/24/2020 12:00:00 AM EST active Torsemide 20 MG e CW1 ([facility]) torsemide 10 MG Oral Tablet Torsemide 10 MG Torsemide 10 MG 02/24/2020 12:00:00 AM EST active Torsemide 10 MG e CW1 ([facility]) torsemide 10 MG Oral Tablet Torsemide 10 MG Torsemide 10 MG 02/24/2020 12:00:00 AM EST active Torsemide 10 MG e CW1 ([facility]) torsemide 20 MG Oral Tablet Torsemide 20 MG Torsemide 20 MG 02/24/2020 12:00:00 AM EST active Torsemide 20 MG e CW1 ([facility]) torsemide 20 MG Oral Tablet Torsemide 20 MG Torsemide 20 MG 02/24/2020 12:00:00 AM EST active Torsemide 20 MG e CW1 ([facility]) torsemide 10 MG Oral Tablet Torsemide 10 MG Torsemide 10 MG 02/24/2020 12:00:00 AM EST active Torsemide 10 MG e CW1 ([facility]) torsemide 10 MG Oral Tablet Torsemide 10 MG Torsemide 10 MG 02/24/2020 12:00:00 AM EST active Torsemide 10 MG e CW1 ([facility]) torsemide 10 MG Oral Tablet Torsemide 10 MG Torsemide 10 MG 02/24/2020 12:00:00 AM EST active Torsemide 10 MG e CW1 ([facility]) torsemide 20 MG Oral Tablet Torsemide 20 MG Torsemide 20 MG 02/24/2020 12:00:00 AM EST active Torsemide 20 MG e CW1 ([facility]) torsemide 10 MG Oral Tablet Torsemide 10 MG Torsemide 10 MG 02/24/2020 12:00:00 AM EST active Torsemide 10 MG e CW1 ([facility]) torsemide 10 MG Oral Tablet Torsemide 10 MG Torsemide 10 MG 02/24/2020 12:00:00 AM EST active Torsemide 10 MG e CW1 ([facility]) torsemide 10 MG Oral Tablet Torsemide 10 MG Torsemide 10 MG 02/24/2020 12:00:00 AM EST active Torsemide 10 MG e CW1 ([facility]) torsemide 10 MG Oral Tablet Torsemide 10 MG Torsemide 10 MG 02/24/2020 12:00:00 AM EST active Torsemide 10 MG e CW1 ([facility]) torsemide 10 MG Oral Tablet Torsemide 10 MG Torsemide 10 MG 02/24/2020 12:00:00 AM EST active Torsemide 10 MG e CW1 ([facility]) torsemide 20 MG Oral Tablet Torsemide 20 MG Torsemide 20 MG 02/24/2020 12:00:00 AM EST active Torsemide 20 MG e CW1 ([facility]) torsemide 20 MG Oral Tablet Torsemide 20 MG Torsemide 20 MG 02/24/2020 12:00:00 AM EST active Torsemide 20 MG e CW1 ([facility]) torsemide 20 MG Oral Tablet Torsemide 20 MG Torsemide 20 MG 02/24/2020 12:00:00 AM EST active Torsemide 20 MG e CW1 ([facility]) torsemide 10 MG Oral Tablet Torsemide 10 MG Torsemide 10 MG 02/24/2020 12:00:00 AM EST active Torsemide 10 MG e CW1 ([facility]) torsemide 20 MG Oral Tablet Torsemide 20 MG Torsemide 20 MG 02/24/2020 12:00:00 AM EST active Torsemide 20 MG e CW1 ([facility]) torsemide 20 MG Oral Tablet Torsemide 20 MG Torsemide 20 MG 02/24/2020 12:00:00 AM EST active Torsemide 20 MG e CW1 ([facility]) torsemide 20 MG Oral Tablet Torsemide 20 MG Torsemide 20 MG 02/24/2020 12:00:00 AM EST active Torsemide 20 MG e CW1 ([facility]) torsemide 20 MG Oral Tablet Torsemide 20 MG Torsemide 20 MG 02/24/2020 12:00:00 AM EST active Torsemide 20 MG e CW1 ([facility]) torsemide 10 MG Oral Tablet Torsemide 10 MG Torsemide 10 MG 02/24/2020 12:00:00 AM EST active Torsemide 10 MG e CW1 ([facility]) torsemide 20 MG Oral Tablet Torsemide 20 MG Torsemide 20 MG 02/24/2020 12:00:00 AM EST active Torsemide 20 MG e CW1 ([facility]) torsemide 20 MG Oral Tablet Torsemide 20 MG Torsemide 20 MG 02/24/2020 12:00:00 AM EST active Torsemide 20 MG e CW1 ([facility]) torsemide 10 MG Oral Tablet Torsemide 10 MG Torsemide 10 MG 02/24/2020 12:00:00 AM EST active Torsemide 10 MG e CW1 ([facility]) torsemide 20 MG Oral Tablet Torsemide 20 MG Torsemide 20 MG 02/24/2020 12:00:00 AM EST active Torsemide 20 MG e CW1 ([facility]) torsemide 10 MG Oral Tablet Torsemide 10 MG Torsemide 10 MG 02/24/2020 12:00:00 AM EST active Torsemide 10 MG e CW1 ([facility]) torsemide 20 MG Oral Tablet Torsemide 20 MG Torsemide 20 MG 02/24/2020 12:00:00 AM EST active Torsemide 20 MG e CW1 ([facility]) torsemide 20 MG Oral Tablet Torsemide 20 MG Torsemide 20 MG 02/24/2020 12:00:00 AM EST active Torsemide 20 MG e CW1 ([facility]) torsemide 10 MG Oral Tablet Torsemide 10 MG Torsemide 10 MG 02/24/2020 12:00:00 AM EST active Torsemide 10 MG e CW1 ([facility]) torsemide 20 MG Oral Tablet Torsemide 20 MG Torsemide 20 MG 02/24/2020 12:00:00 AM EST active Torsemide 20 MG e CW1 ([facility]) torsemide 10 MG Oral Tablet Torsemide 10 MG Torsemide 10 MG 02/24/2020 12:00:00 AM EST active Torsemide 10 MG e CW1 ([facility]) torsemide 10 MG Oral Tablet Torsemide 10 MG Torsemide 10 MG 02/24/2020 12:00:00 AM EST active Torsemide 10 MG e CW1 ([facility]) torsemide 10 MG Oral Tablet Torsemide 10 MG Torsemide 10 MG 02/24/2020 12:00:00 AM EST active Torsemide 10 MG e CW1 ([facility]) torsemide 10 MG Oral Tablet Torsemide 10 MG Torsemide 10 MG 02/24/2020 12:00:00 AM EST active Torsemide 10 MG e CW1 ([facility]) torsemide 10 MG Oral Tablet Torsemide 10 MG Torsemide 10 MG 02/24/2020 12:00:00 AM EST active Torsemide 10 MG e CW1 ([facility]) torsemide 10 MG Oral Tablet Torsemide 10 MG Torsemide 10 MG 02/24/2020 12:00:00 AM EST active Torsemide 10 MG e CW1 ([facility]) torsemide 10 MG Oral Tablet Torsemide 10 MG Torsemide 10 MG 02/24/2020 12:00:00 AM EST active Torsemide 10 MG e CW1 ([facility]) torsemide 20 MG Oral Tablet Torsemide 20 MG Torsemide 20 MG 02/24/2020 12:00:00 AM EST active Torsemide 20 MG e CW1 ([facility]) torsemide 10 MG Oral Tablet Torsemide 10 MG Torsemide 10 MG 02/24/2020 12:00:00 AM EST active Torsemide 10 MG e CW1 ([facility]) torsemide 20 MG Oral Tablet Torsemide 20 MG Torsemide 20 MG 02/24/2020 12:00:00 AM EST active Torsemide 20 MG e CW1 ([facility]) torsemide 20 MG Oral Tablet Torsemide 20 MG Torsemide 20 MG 02/24/2020 12:00:00 AM EST active Torsemide 20 MG e CW1 ([facility]) torsemide 10 MG Oral Tablet Torsemide 10 MG Torsemide 10 MG 02/24/2020 12:00:00 AM EST active Torsemide 10 MG e CW1 ([facility]) torsemide 20 MG Oral Tablet Torsemide 20 MG Torsemide 20 MG 02/24/2020 12:00:00 AM EST active Torsemide 20 MG e CW1 ([facility]) torsemide 10 MG Oral Tablet Torsemide 10 MG Torsemide 10 MG 02/24/2020 12:00:00 AM EST active Torsemide 10 MG e CW1 ([facility]) torsemide 10 MG Oral Tablet Torsemide 10 MG Torsemide 10 MG 02/24/2020 12:00:00 AM EST active Torsemide 10 MG e CW1 ([facility]) torsemide 20 MG Oral Tablet Torsemide 20 MG Torsemide 20 MG 02/24/2020 12:00:00 AM EST active Torsemide 20 MG e CW1 ([facility]) torsemide 10 MG Oral Tablet Torsemide 10 MG Torsemide 10 MG 02/24/2020 12:00:00 AM EST active Torsemide 10 MG e CW1 ([facility]) torsemide 20 MG Oral Tablet Torsemide 20 MG Torsemide 20 MG 02/24/2020 12:00:00 AM EST active Torsemide 20 MG e CW1 ([facility]) torsemide 20 MG Oral Tablet Torsemide 20 MG Torsemide 20 MG 02/24/2020 12:00:00 AM EST active Torsemide 20 MG e CW1 ([facility]) torsemide 10 MG Oral Tablet Torsemide 10 MG Torsemide 10 MG 02/24/2020 12:00:00 AM EST active Torsemide 10 MG e CW1 ([facility]) torsemide 20 MG Oral Tablet Torsemide 20 MG Torsemide 20 MG 02/24/2020 12:00:00 AM EST active Torsemide 20 MG e CW1 ([facility]) torsemide 20 MG Oral Tablet Torsemide 20 MG Torsemide 20 MG 02/24/2020 12:00:00 AM EST active Torsemide 20 MG e CW1 ([facility]) torsemide 20 MG Oral Tablet Torsemide 20 MG Torsemide 20 MG 02/24/2020 12:00:00 AM EST active Torsemide 20 MG e CW1 ([facility]) Walker - Walker - 02/15/2020 12:00:00 AM EST activ e Walker - eCW1 ([facility]) Walker - Walker - 02/15/2020 12:00:00 AM EST activ e Walker - eCW1 ([facility]) Walker - Walker - 02/15/2020 12:00:00 AM EST activ e Walker - eCW1 ([facility]) Walker - Walker - 02/15/2020 12:00:00 AM EST activ e Walker - eCW1 ([facility]) Walker - Walker - 02/15/2020 12:00:00 AM EST activ e Walker - eCW1 ([facility]) Walker - Walker - 02/15/2020 12:00:00 AM EST activ e Walker - eCW1 ([facility]) Walker - Walker - 02/15/2020 12:00:00 AM EST activ e Walker - eCW1 ([facility]) Walker - Walker - 02/15/2020 12:00:00 AM EST activ e Walker - eCW1 ([facility]) Walker - Walker - 02/15/2020 12:00:00 AM EST activ e Walker - eCW1 ([facility]) Walker - Walker - 02/15/2020 12:00:00 AM EST activ e Walker - eCW1 ([facility]) Walker - Walker - 02/15/2020 12:00:00 AM EST activ e Walker - eCW1 ([facility]) Walker - Walker - 02/15/2020 12:00:00 AM EST activ e Walker - eCW1 ([facility]) Walker - Walker - 02/15/2020 12:00:00 AM EST activ e Walker - eCW1 ([facility]) Walker - Walker - 02/15/2020 12:00:00 AM EST activ e Walker - eCW1 ([facility]) Walker - Walker - 02/15/2020 12:00:00 AM EST activ e Walker - eCW1 ([facility]) Walker - Walker - 02/15/2020 12:00:00 AM EST activ e Walker - eCW1 ([facility]) Walker - Walker - 02/15/2020 12:00:00 AM EST activ e Walker - eCW1 ([facility]) Walker - Walker - 02/15/2020 12:00:00 AM EST activ e Walker - eCW1 ([facility]) Walker - Walker - 02/15/2020 12:00:00 AM EST activ e Walker - eCW1 ([facility]) Walker - Walker - 02/15/2020 12:00:00 AM EST activ e Walker - eCW1 ([facility]) Walker - Walker - 02/15/2020 12:00:00 AM EST activ e Walker - eCW1 ([facility]) Walker - Walker - 02/15/2020 12:00:00 AM EST activ e Walker - eCW1 ([facility]) Walker - Walker - 02/15/2020 12:00:00 AM EST activ e Walker - eCW1 ([facility]) Walker - Walker - 02/15/2020 12:00:00 AM EST activ e Walker - eCW1 ([facility]) Walker - Walker - 02/15/2020 12:00:00 AM EST activ e Walker - eCW1 ([facility]) Walker - Walker - 02/15/2020 12:00:00 AM EST activ e Walker - eCW1 ([facility]) Walker - Walker - 02/15/2020 12:00:00 AM EST activ e Walker - eCW1 ([facility]) Walker - Walker - 02/15/2020 12:00:00 AM EST activ e Walker - eCW1 ([facility]) Walker - Walker - 02/15/2020 12:00:00 AM EST activ e Walker - eCW1 ([facility]) Walker - Walker - 02/15/2020 12:00:00 AM EST activ e Walker - eCW1 ([facility]) Walker - Walker - 02/15/2020 12:00:00 AM EST activ e Walker - eCW1 ([facility]) Walker - Walker - 02/15/2020 12:00:00 AM EST activ e Walker - eCW1 ([facility]) Walker - Walker - 02/15/2020 12:00:00 AM EST activ e Walker - eCW1 ([facility]) Walker - Walker - 02/15/2020 12:00:00 AM EST activ e Walker - eCW1 ([facility]) Walker - Walker - 02/15/2020 12:00:00 AM EST activ e Walker - eCW1 ([facility]) Walker - Walker - 02/15/2020 12:00:00 AM EST activ e Walker - eCW1 ([facility]) Walker - Walker - 02/15/2020 12:00:00 AM EST activ e Walker - eCW1 ([facility]) Walker - Walker - 02/15/2020 12:00:00 AM EST activ e Walker - eCW1 ([facility]) Walker - Walker - 02/15/2020 12:00:00 AM EST activ e Walker - eCW1 ([facility]) Walker - Walker - 02/15/2020 12:00:00 AM EST activ e Walker - eCW1 ([facility]) Walker - Walker - 02/15/2020 12:00:00 AM EST activ e Walker - eCW1 ([facility]) Walker - Walker - 02/15/2020 12:00:00 AM EST activ e Walker - eCW1 ([facility]) Walker - Walker - 02/15/2020 12:00:00 AM EST activ e Walker - eCW1 ([facility]) Walker - Walker - 02/15/2020 12:00:00 AM EST activ e Walker - eCW1 ([facility]) Walker - Walker - 02/15/2020 12:00:00 AM EST activ e Walker - eCW1 ([facility]) Walker - Walker - 02/15/2020 12:00:00 AM EST activ e Walker - eCW1 ([facility]) Walker - Walker - 02/15/2020 12:00:00 AM EST activ e Walker - eCW1 ([facility]) Walker - Walker - 02/15/2020 12:00:00 AM EST activ e Walker - eCW1 ([facility]) Walker - Walker - 02/15/2020 12:00:00 AM EST activ e Walker - eCW1 ([facility]) Walker - Walker - 02/15/2020 12:00:00 AM EST activ e Walker - eCW1 ([facility]) Walker - Walker - 02/15/2020 12:00:00 AM EST activ e Walker - eCW1 ([facility]) Walker - Walker - 02/15/2020 12:00:00 AM EST activ e Walker - eCW1 ([facility]) Walker - Walker - 02/15/2020 12:00:00 AM EST activ e Walker - eCW1 ([facility]) Walker - Walker - 02/15/2020 12:00:00 AM EST activ e Walker - eCW1 ([facility]) Walker - Walker - 02/15/2020 12:00:00 AM EST activ e Walker - eCW1 ([facility]) Walker - Walker - 02/15/2020 12:00:00 AM EST activ e Walker - eCW1 ([facility]) Walker - Walker - 02/15/2020 12:00:00 AM EST activ e Walker - eCW1 ([facility]) Walker - Walker - 02/15/2020 12:00:00 AM EST activ e Walker - eCW1 ([facility]) Walker - Walker - 02/15/2020 12:00:00 AM EST activ e Walker - eCW1 ([facility]) Walker - Walker - 02/15/2020 12:00:00 AM EST activ e Walker - eCW1 ([facility]) Walker - Walker - 02/15/2020 12:00:00 AM EST activ e Walker - eCW1 ([facility]) Walker - Walker - 02/15/2020 12:00:00 AM EST activ e Walker - eCW1 ([facility]) Walker - Walker - 02/15/2020 12:00:00 AM EST activ e Walker - eCW1 ([facility]) Walker - Walker - 02/15/2020 12:00:00 AM EST activ e Walker - eCW1 ([facility]) Test Strips - UNK 02/09/2020 12:00:00 AM EST acti ve Test Strips - eCW1 ([facility]) Test Strips - UNK 02/09/2020 12:00:00 AM EST acti ve Test Strips - eCW1 ([facility]) Test Strips - UNK 02/09/2020 12:00:00 AM EST acti ve Test Strips - eCW1 ([facility]) Test Strips - UNK 02/09/2020 12:00:00 AM EST acti ve Test Strips - eCW1 ([facility]) Test Strips - UNK 02/09/2020 12:00:00 AM EST acti ve Test Strips - eCW1 ([facility]) Test Strips - UNK 02/09/2020 12:00:00 AM EST acti ve Test Strips - eCW1 ([facility]) Test Strips - UNK 02/09/2020 12:00:00 AM EST acti ve Test Strips - eCW1 ([facility]) Test Strips - UNK 02/09/2020 12:00:00 AM EST acti ve Test Strips - eCW1 ([facility]) Test Strips - UNK 02/09/2020 12:00:00 AM EST acti ve Test Strips - eCW1 ([facility]) Test Strips - UNK 02/09/2020 12:00:00 AM EST acti ve Test Strips - eCW1 ([facility]) Test Strips - UNK 02/09/2020 12:00:00 AM EST acti ve Test Strips - eCW1 ([facility]) Test Strips - UNK 02/09/2020 12:00:00 AM EST acti ve Test Strips - eCW1 ([facility]) Test Strips - K 02/09/2020 12:00:00 AM EST acti ve Test Strips - eCW1 ([facility]) Test Strips - K 02/09/2020 12:00:00 AM EST acti ve Test Strips - eCW1 ([facility]) Test Strips - K 02/09/2020 12:00:00 AM EST acti ve Test Strips - eCW1 ([facility]) Test Strips - K 02/09/2020 12:00:00 AM EST acti ve Test Strips - eCW1 ([facility]) Test Strips - K 02/09/2020 12:00:00 AM EST acti ve Test Strips - eCW1 ([facility]) Test Strips - K 02/09/2020 12:00:00 AM EST acti ve Test Strips - eCW1 ([facility]) Test Strips - K 02/09/2020 12:00:00 AM EST acti ve Test Strips - eCW1 ([facility]) Test Strips - K 02/09/2020 12:00:00 AM EST acti ve Test Strips - eCW1 ([facility]) Test Strips - K 02/09/2020 12:00:00 AM EST acti ve Test Strips - eCW1 ([facility]) Test Strips - K 02/09/2020 12:00:00 AM EST acti ve Test Strips - eCW1 ([facility]) Test Strips - UNK 02/09/2020 12:00:00 AM EST acti ve Test Strips - [email or web address] ([facility]) Test Strips - K 02/09/2020 12:00:00 AM EST acti ve Test Strips - [email or web address] ([facility]) Test Strips - K 02/09/2020 12:00:00 AM EST acti ve Test Strips - [email or web address] ([facility]) Test Strips - K 02/09/2020 12:00:00 AM EST acti ve Test Strips - [email or web address] ([facility]) Test Strips - K 02/09/2020 12:00:00 AM EST acti ve Test Strips - [email or web address] ([facility]) Test Strips - K 02/09/2020 12:00:00 AM EST acti ve Test Strips - [email or web address] ([facility]) Test Strips - K 02/09/2020 12:00:00 AM EST acti ve Test Strips - [email or web address] ([facility]) Test Strips - K 02/09/2020 12:00:00 AM EST acti ve Test Strips - [email or web address] ([facility]) Test Strips - K 02/09/2020 12:00:00 AM EST acti ve Test Strips - [email or web address] ([facility]) Test Strips - K 02/09/2020 12:00:00 AM EST acti ve Test Strips - [email or web address] ([facility]) Test Strips - K 02/09/2020 12:00:00 AM EST acti ve Test Strips - eCW1 ([facility]) Test Strips - K 02/09/2020 12:00:00 AM EST acti ve Test Strips - eCW1 ([facility]) Test Strips - K 02/09/2020 12:00:00 AM EST acti ve Test Strips - eCW1 ([facility]) Test Strips - K 02/09/2020 12:00:00 AM EST acti ve Test Strips - eCW1 ([facility]) Test Strips - K 02/09/2020 12:00:00 AM EST acti ve Test Strips - eCW1 ([facility]) Test Strips - UNK 02/09/2020 12:00:00 AM EST acti ve Test Strips - eCW1 ([facility]) Test Strips - UNK 02/09/2020 12:00:00 AM EST acti ve Test Strips - eCW1 ([facility]) Test Strips - UNK 02/09/2020 12:00:00 AM EST acti ve Test Strips - eCW1 ([facility]) Test Strips - UNK 02/09/2020 12:00:00 AM EST acti ve Test Strips - eCW1 ([facility]) Test Strips - K 02/09/2020 12:00:00 AM EST acti ve Test Strips - eCW1 ([facility]) Test Strips - K 02/09/2020 12:00:00 AM EST acti ve Test Strips - eCW1 ([facility]) Test Strips - K 02/09/2020 12:00:00 AM EST acti ve Test Strips - eCW1 ([facility]) Test Strips - K 02/09/2020 12:00:00 AM EST acti ve Test Strips - eCW1 ([facility]) Test Strips - K 02/09/2020 12:00:00 AM EST acti ve Test Strips - eCW1 ([facility]) Test Strips - K 02/09/2020 12:00:00 AM EST acti ve Test Strips - eCW1 ([facility]) Test Strips - K 02/09/2020 12:00:00 AM EST acti ve Test Strips - eCW1 ([facility]) Test Strips - K 02/09/2020 12:00:00 AM EST acti ve Test Strips - eCW1 ([facility]) Test Strips - K 02/09/2020 12:00:00 AM EST acti ve Test Strips - eCW1 ([facility]) Test Strips - UNK 02/09/2020 12:00:00 AM EST acti ve Test Strips - eCW1 ([facility]) Test Strips - K 02/09/2020 12:00:00 AM EST acti ve Test Strips - eCW1 ([facility]) Test Strips - UNK 02/09/2020 12:00:00 AM EST acti ve Test Strips - eCW1 ([facility]) Test Strips - UNK 02/09/2020 12:00:00 AM EST acti ve Test Strips - eCW1 ([facility]) Test Strips - UNK 02/09/2020 12:00:00 AM EST acti ve Test Strips - eCW1 ([facility]) Test Strips - UNK 02/09/2020 12:00:00 AM EST acti ve Test Strips - eCW1 ([facility]) Test Strips - UNK 02/09/2020 12:00:00 AM EST acti ve Test Strips - eCW1 ([facility]) Test Strips - UNK 02/09/2020 12:00:00 AM EST acti ve Test Strips - eCW1 ([facility]) Test Strips - K 02/09/2020 12:00:00 AM EST acti ve Test Strips - eCW1 ([facility]) Test Strips - K 02/09/2020 12:00:00 AM EST acti ve Test Strips - eCW1 ([facility]) Test Strips - K 02/09/2020 12:00:00 AM EST acti ve Test Strips - eCW1 ([facility]) POLYETHYLENE GLYCOL 3350 142 MG/ML Oral Solution [Miralax] M iralax 02/09/2020 12:00:00 AM EST completed MEDENT ([facility]) magnesium citrate 58.2 MG/ML Oral Solution Magnesium Citrate 02/09/2020 12:00:00 AM EST completed MEDENT ([facility]) Test Strips - UNK 02/09/2020 12:00:00 AM EST acti ve Test Strips - eCW1 ([facility]) Test Strips - UNK 02/09/2020 12:00:00 AM EST acti ve Test Strips - eCW1 ([facility]) Test Strips - UNK 02/09/2020 12:00:00 AM EST acti ve Test Strips - eCW1 ([facility]) Test Strips - UNK 02/09/2020 12:00:00 AM EST acti ve Test Strips - eCW1 ([facility]) Test Strips - UNK 02/09/2020 12:00:00 AM EST acti ve Test Strips - eCW1 ([facility]) Test Strips - UNK 02/09/2020 12:00:00 AM EST acti ve Test Strips - eCW1 ([facility]) 3 ML insulin detemir 100 UNT/ML Pen Inje ctor [Levemir] Levemir FlexTouch 100 UNIT/ML Levemir FlexTouch 100 UNIT/ML 02/03/2020 12:00:00 AM EST active Levemir FlexTouch 100 UNIT/ML eC W1 ([facility]) Amlodipine 5 MG Oral Tablet AmLODIPine Besylate 5 MG AmLODIP ine Besylate 5 MG 02/03/2020 12:00:00 AM EST 1.0 {tablet} active AmLODIPine Besylate 5 MG eCW1 ([facility]) 3 ML insulin detemir 100 UNT/ML Pen Inje ctor [Levemir] Levemir FlexTouch 100 UNIT/ML Levemir FlexTouch 100 UNIT/ML 02/03/2020 12:00:00 AM EST active Levemir FlexTouch 100 UNIT/ML eC W1 ([facility]) 3 ML insulin detemir 100 UNT/ML Pen Inje ctor [Levemir] Levemir FlexTouch 100 UNIT/ML Levemir FlexTouch 100 UNIT/ML 02/03/2020 12:00:00 AM EST active Levemir FlexTouch 100 UNIT/ML eC W1 ([facility]) Acetaminophen 325 MG Oral Tablet Acetaminophen 325 MG 2019 12:00:00 AM EST 2.0 {tablets_as_needed} active Acetaminophen 325 MG eCW1 ([facility]) 3 ML insulin detemir 100 UNT/ML Pen Inje ctor [Levemir] Levemir FlexTouch 100 UNIT/ML Levemir FlexTouch 100 UNIT/ML 02/03/2020 12:00:00 AM EST active Levemir FlexTouch 100 UNIT/ML eC W1 ([facility]) 3 ML insulin detemir 100 UNT/ML Pen Inje ctor [Levemir] Levemir FlexTouch 100 UNIT/ML Levemir FlexTouch 100 UNIT/ML 02/03/2020 12:00:00 AM EST active Levemir FlexTouch 100 UNIT/ML eC W1 ([facility]) 3 ML insulin detemir 100 UNT/ML Pen Inje ctor [Levemir] Levemir FlexTouch 100 UNIT/ML Levemir FlexTouch 100 UNIT/ML 02/03/2020 12:00:00 AM EST active Levemir FlexTouch 100 UNIT/ML eC W1 ([facility]) Amlodipine 5 MG Oral Tablet AmLODIPine Besylate 5 MG AmLODIP ine Besylate 5 MG 02/03/2020 12:00:00 AM EST 1.0 {tablet} active AmLODIPine Besylate 5 MG eCW1 ([facility]) 3 ML insulin detemir 100 UNT/ML Pen Inje ctor [Levemir] Levemir FlexTouch 100 UNIT/ML Levemir FlexTouch 100 UNIT/ML 02/03/2020 12:00:00 AM EST active Levemir FlexTouch 100 UNIT/ML eC W1 ([facility]) Amlodipine 5 MG Oral Tablet AmLODIPine Besylate 5 MG AmLODIP ine Besylate 5 MG 02/03/2020 12:00:00 AM EST 1.0 {tablet} active AmLODIPine Besylate 5 MG eCW1 ([facility]) Acetaminophen 325 MG Oral Tablet Acetaminophen 325 MG 2019 12:00:00 AM EST 2.0 {tablets_as_needed} active Acetaminophen 325 MG eCW1 ([facility]) Acetaminophen 325 MG Oral Tablet Acetaminophen 325 MG 2019 12:00:00 AM EST 2.0 {tablets_as_needed} active Acetaminophen 325 MG eCW1 ([facility]) 3 ML insulin detemir 100 UNT/ML Pen Inje ctor [Levemir] Levemir FlexTouch 100 UNIT/ML Levemir FlexTouch 100 UNIT/ML 02/03/2020 12:00:00 AM EST active Levemir FlexTouch 100 UNIT/ML eC W1 ([facility]) 3 ML insulin detemir 100 UNT/ML Pen Inje ctor [Levemir] Levemir FlexTouch 100 UNIT/ML Levemir FlexTouch 100 UNIT/ML 02/03/2020 12:00:00 AM EST active Levemir FlexTouch 100 UNIT/ML eC W1 ([facility]) Amlodipine 5 MG Oral Tablet AmLODIPine Besylate 5 MG AmLODIP ine Besylate 5 MG 02/03/2020 12:00:00 AM EST 1.0 {tablet} active AmLODIPine Besylate 5 MG eCW1 ([facility]) 3 ML insulin detemir 100 UNT/ML Pen Inje ctor [Levemir] Levemir FlexTouch 100 UNIT/ML Levemir FlexTouch 100 UNIT/ML 02/03/2020 12:00:00 AM EST active Levemir FlexTouch 100 UNIT/ML eC W1 ([facility]) Acetaminophen 325 MG Oral Tablet Acetaminophen 325 MG 2019 12:00:00 AM EST 2.0 {tablets_as_needed} active Acetaminophen 325 MG eCW1 ([facility]) 3 ML insulin detemir 100 UNT/ML Pen Inje ctor [Levemir] Levemir FlexTouch 100 UNIT/ML Levemir FlexTouch 100 UNIT/ML 02/03/2020 12:00:00 AM EST active Levemir FlexTouch 100 UNIT/ML eC W1 ([facility]) 3 ML insulin detemir 100 UNT/ML Pen Inje ctor [Levemir] Levemir FlexTouch 100 UNIT/ML Levemir FlexTouch 100 UNIT/ML 02/03/2020 12:00:00 AM EST active Levemir FlexTouch 100 UNIT/ML eC W1 ([facility]) 3 ML insulin detemir 100 UNT/ML Pen Inje ctor [Levemir] Levemir FlexTouch 100 UNIT/ML Levemir FlexTouch 100 UNIT/ML 02/03/2020 12:00:00 AM EST active Levemir FlexTouch 100 UNIT/ML eC W1 ([facility]) 3 ML insulin detemir 100 UNT/ML Pen Inje ctor [Levemir] Levemir FlexTouch 100 UNIT/ML Levemir FlexTouch 100 UNIT/ML 02/03/2020 12:00:00 AM EST active Levemir FlexTouch 100 UNIT/ML eC W1 ([facility]) 3 ML insulin detemir 100 UNT/ML Pen Inje ctor [Levemir] Levemir FlexTouch 100 UNIT/ML Levemir FlexTouch 100 UNIT/ML 02/03/2020 12:00:00 AM EST active Levemir FlexTouch 100 UNIT/ML eC W1 ([facility]) 3 ML insulin detemir 100 UNT/ML Pen Inje ctor [Levemir] Levemir FlexTouch 100 UNIT/ML Levemir FlexTouch 100 UNIT/ML 02/03/2020 12:00:00 AM EST active Levemir FlexTouch 100 UNIT/ML eC W1 ([facility]) 3 ML insulin detemir 100 UNT/ML Pen Inje ctor [Levemir] Levemir FlexTouch 100 UNIT/ML Levemir FlexTouch 100 UNIT/ML 02/03/2020 12:00:00 AM EST active Levemir FlexTouch 100 UNIT/ML eC W1 ([facility]) Amlodipine 5 MG Oral Tablet AmLODIPine Besylate 5 MG AmLODIP ine Besylate 5 MG 02/03/2020 12:00:00 AM EST 1.0 {tablet} active AmLODIPine Besylate 5 MG eCW1 ([facility]) Amlodipine 5 MG Oral Tablet AmLODIPine Besylate 5 MG AmLODIP ine Besylate 5 MG 02/03/2020 12:00:00 AM EST 1.0 {tablet} active AmLODIPine Besylate 5 MG eCW1 ([facility]) 3 ML insulin detemir 100 UNT/ML Pen Inje ctor [Levemir] Levemir FlexTouch 100 UNIT/ML Levemir FlexTouch 100 UNIT/ML 02/03/2020 12:00:00 AM EST active Levemir FlexTouch 100 UNIT/ML eC W1 ([facility]) 3 ML insulin detemir 100 UNT/ML Pen Inje ctor [Levemir] Levemir FlexTouch 100 UNIT/ML Levemir FlexTouch 100 UNIT/ML 02/03/2020 12:00:00 AM EST active Levemir FlexTouch 100 UNIT/ML eC W1 ([facility]) 3 ML insulin detemir 100 UNT/ML Pen Inje ctor [Levemir] Levemir FlexTouch 100 UNIT/ML Levemir FlexTouch 100 UNIT/ML 02/03/2020 12:00:00 AM EST active Levemir FlexTouch 100 UNIT/ML eC W1 ([facility]) Acetaminophen 325 MG Oral Tablet Acetaminophen 325 MG 2019 12:00:00 AM EST 2.0 {tablets_as_needed} active Acetaminophen 325 MG eCW1 ([facility]) Acetaminophen 325 MG Oral Tablet Acetaminophen 325 MG 2019 12:00:00 AM EST 2.0 {tablets_as_needed} active Acetaminophen 325 MG eCW1 ([facility]) Acetaminophen 325 MG Oral Tablet Acetaminophen 325 MG 2019 12:00:00 AM EST 2.0 {tablets_as_needed} active Acetaminophen 325 MG eCW1 ([facility]) Acetaminophen 325 MG Oral Tablet Acetaminophen 325 MG 2019 12:00:00 AM EST 2.0 {tablets_as_needed} active Acetaminophen 325 MG eCW1 ([facility]) 3 ML insulin detemir 100 UNT/ML Pen Inje ctor [Levemir] Levemir FlexTouch 100 UNIT/ML Levemir FlexTouch 100 UNIT/ML 02/03/2020 12:00:00 AM EST active Levemir FlexTouch 100 UNIT/ML eC W1 ([facility]) 3 ML insulin detemir 100 UNT/ML Pen Inje ctor [Levemir] Levemir FlexTouch 100 UNIT/ML Levemir FlexTouch 100 UNIT/ML 02/03/2020 12:00:00 AM EST active Levemir FlexTouch 100 UNIT/ML eC W1 ([facility]) 3 ML insulin detemir 100 UNT/ML Pen Inje ctor [Levemir] Levemir FlexTouch 100 UNIT/ML Levemir FlexTouch 100 UNIT/ML 02/03/2020 12:00:00 AM EST active Levemir FlexTouch 100 UNIT/ML eC W1 ([facility]) Acetaminophen 325 MG Oral Tablet Acetaminophen 325 MG 2019 12:00:00 AM EST 2.0 {tablets_as_needed} active Acetaminophen 325 MG eCW1 ([facility]) Acetaminophen 325 MG Oral Tablet Acetaminophen 325 MG 2019 12:00:00 AM EST 2.0 {tablets_as_needed} active Acetaminophen 325 MG eCW1 ([facility]) 3 ML insulin detemir 100 UNT/ML Pen Inje ctor [Levemir] Levemir FlexTouch 100 UNIT/ML Levemir FlexTouch 100 UNIT/ML 02/03/2020 12:00:00 AM EST active Levemir FlexTouch 100 UNIT/ML eC W1 ([facility]) Acetaminophen 325 MG Oral Tablet Acetaminophen 325 MG 2019 12:00:00 AM EST 2.0 {tablets_as_needed} active Acetaminophen 325 MG eCW1 ([facility]) Amlodipine 5 MG Oral Tablet AmLODIPine Besylate 5 MG AmLODIP ine Besylate 5 MG 02/03/2020 12:00:00 AM EST 1.0 {tablet} active AmLODIPine Besylate 5 MG eCW1 ([facility]) 3 ML insulin detemir 100 UNT/ML Pen Inje ctor [Levemir] Levemir FlexTouch 100 UNIT/ML Levemir FlexTouch 100 UNIT/ML 02/03/2020 12:00:00 AM EST active Levemir FlexTouch 100 UNIT/ML eC W1 ([facility]) 3 ML insulin detemir 100 UNT/ML Pen Inje ctor [Levemir] Levemir FlexTouch 100 UNIT/ML Levemir FlexTouch 100 UNIT/ML 02/03/2020 12:00:00 AM EST active Levemir FlexTouch 100 UNIT/ML eC W1 ([facility]) 3 ML insulin detemir 100 UNT/ML Pen Inje ctor [Levemir] Levemir FlexTouch 100 UNIT/ML Levemir FlexTouch 100 UNIT/ML 02/03/2020 12:00:00 AM EST active Levemir FlexTouch 100 UNIT/ML eC W1 ([facility]) 3 ML insulin detemir 100 UNT/ML Pen Inje ctor [Levemir] Levemir FlexTouch 100 UNIT/ML Levemir FlexTouch 100 UNIT/ML 02/03/2020 12:00:00 AM EST active Levemir FlexTouch 100 UNIT/ML eC W1 ([facility]) 3 ML insulin detemir 100 UNT/ML Pen Inje ctor [Levemir] Levemir FlexTouch 100 UNIT/ML Levemir FlexTouch 100 UNIT/ML 02/03/2020 12:00:00 AM EST active Levemir FlexTouch 100 UNIT/ML eC W1 ([facility]) Acetaminophen 325 MG Oral Tablet Acetaminophen 325 MG 2019 12:00:00 AM EST 2.0 {tablets_as_needed} active Acetaminophen 325 MG eCW1 ([facility]) Acetaminophen 325 MG Oral Tablet Acetaminophen 325 MG 2019 12:00:00 AM EST 2.0 {tablets_as_needed} active Acetaminophen 325 MG eCW1 ([facility]) Acetaminophen 325 MG Oral Tablet Acetaminophen 325 MG 2019 12:00:00 AM EST 2.0 {tablets_as_needed} active Acetaminophen 325 MG eCW1 ([facility]) 3 ML insulin detemir 100 UNT/ML Pen Inje ctor [Levemir] Levemir FlexTouch 100 UNIT/ML Levemir FlexTouch 100 UNIT/ML 02/03/2020 12:00:00 AM EST active Levemir FlexTouch 100 UNIT/ML eC W1 ([facility]) Acetaminophen 325 MG Oral Tablet Acetaminophen 325 MG 2019 12:00:00 AM EST 2.0 {tablets_as_needed} active Acetaminophen 325 MG eCW1 ([facility]) 3 ML insulin detemir 100 UNT/ML Pen Inje ctor [Levemir] Levemir FlexTouch 100 UNIT/ML Levemir FlexTouch 100 UNIT/ML 02/03/2020 12:00:00 AM EST active Levemir FlexTouch 100 UNIT/ML eC W1 ([facility]) Amlodipine 5 MG Oral Tablet AmLODIPine Besylate 5 MG AmLODIP ine Besylate 5 MG 02/03/2020 12:00:00 AM EST 1.0 {tablet} active AmLODIPine Besylate 5 MG eCW1 ([facility]) 3 ML insulin detemir 100 UNT/ML Pen Inje ctor [Levemir] Levemir FlexTouch 100 UNIT/ML Levemir FlexTouch 100 UNIT/ML 02/03/2020 12:00:00 AM EST active Levemir FlexTouch 100 UNIT/ML eC W1 ([facility]) 3 ML insulin detemir 100 UNT/ML Pen Inje ctor [Levemir] Levemir FlexTouch 100 UNIT/ML Levemir FlexTouch 100 UNIT/ML 02/03/2020 12:00:00 AM EST active Levemir FlexTouch 100 UNIT/ML eC W1 ([facility]) Amlodipine 5 MG Oral Tablet AmLODIPine Besylate 5 MG AmLODIP ine Besylate 5 MG 02/03/2020 12:00:00 AM EST 1.0 {tablet} active AmLODIPine Besylate 5 MG eCW1 ([facility]) 3 ML insulin detemir 100 UNT/ML Pen Inje ctor [Levemir] Levemir FlexTouch 100 UNIT/ML Levemir FlexTouch 100 UNIT/ML 02/03/2020 12:00:00 AM EST active Levemir FlexTouch 100 UNIT/ML eC W1 ([facility]) Acetaminophen 325 MG Oral Tablet Acetaminophen 325 MG 2019 12:00:00 AM EST 2.0 {tablets_as_needed} active Acetaminophen 325 MG eCW1 ([facility]) 3 ML insulin detemir 100 UNT/ML Pen Inje ctor [Levemir] Levemir FlexTouch 100 UNIT/ML Levemir FlexTouch 100 UNIT/ML 02/03/2020 12:00:00 AM EST active Levemir FlexTouch 100 UNIT/ML eC W1 ([facility]) 3 ML insulin detemir 100 UNT/ML Pen Inje ctor [Levemir] Levemir FlexTouch 100 UNIT/ML Levemir FlexTouch 100 UNIT/ML 02/03/2020 12:00:00 AM EST active Levemir FlexTouch 100 UNIT/ML eC W1 ([facility]) Acetaminophen 325 MG Oral Tablet Acetaminophen 325 MG 2019 12:00:00 AM EST 2.0 {tablets_as_needed} active Acetaminophen 325 MG eCW1 ([facility]) Amlodipine 5 MG Oral Tablet AmLODIPine Besylate 5 MG AmLODIP ine Besylate 5 MG 02/03/2020 12:00:00 AM EST 1.0 {tablet} active AmLODIPine Besylate 5 MG eCW1 ([facility]) Hydrochlorothiazide 12.5 MG Oral Tablet Hydrochlorothiazide 12.5 MG 02/03/2020 12:00:00 AM EST 1.0 {tablet_in_the_morning} acti ve Hydrochlorothiazide 12.5 MG eCW1 ([facility]) 3 ML insulin detemir 100 UNT/ML Pen Inje ctor [Levemir] Levemir FlexTouch 100 UNIT/ML Levemir FlexTouch 100 UNIT/ML 02/03/2020 12:00:00 AM EST active Levemir FlexTouch 100 UNIT/ML eC W1 ([facility]) Amlodipine 5 MG Oral Tablet AmLODIPine Besylate 5 MG AmLODIP ine Besylate 5 MG 02/03/2020 12:00:00 AM EST 1.0 {tablet} active AmLODIPine Besylate 5 MG eCW1 ([facility]) 3 ML insulin detemir 100 UNT/ML Pen Inje ctor [Levemir] Levemir FlexTouch 100 UNIT/ML Levemir FlexTouch 100 UNIT/ML 02/03/2020 12:00:00 AM EST active Levemir FlexTouch 100 UNIT/ML eC W1 ([facility]) 3 ML insulin detemir 100 UNT/ML Pen Inje ctor [Levemir] Levemir FlexTouch 100 UNIT/ML Levemir FlexTouch 100 UNIT/ML 02/03/2020 12:00:00 AM EST active Levemir FlexTouch 100 UNIT/ML eC W1 ([facility]) 3 ML insulin detemir 100 UNT/ML Pen Inje ctor [Levemir] Levemir FlexTouch 100 UNIT/ML Levemir FlexTouch 100 UNIT/ML 02/03/2020 12:00:00 AM EST active Levemir FlexTouch 100 UNIT/ML eC W1 ([facility]) 3 ML insulin detemir 100 UNT/ML Pen Inje ctor [Levemir] Levemir FlexTouch 100 UNIT/ML Levemir FlexTouch 100 UNIT/ML 02/03/2020 12:00:00 AM EST active Levemir FlexTouch 100 UNIT/ML eC W1 ([facility]) 3 ML insulin detemir 100 UNT/ML Pen Inje ctor [Levemir] Levemir FlexTouch 100 UNIT/ML Levemir FlexTouch 100 UNIT/ML 02/03/2020 12:00:00 AM EST active Levemir FlexTouch 100 UNIT/ML eC W1 ([facility]) 3 ML insulin detemir 100 UNT/ML Pen Inje ctor [Levemir] Levemir FlexTouch 100 UNIT/ML Levemir FlexTouch 100 UNIT/ML 02/03/2020 12:00:00 AM EST active Levemir FlexTouch 100 UNIT/ML eC W1 ([facility]) Acetaminophen 325 MG Oral Tablet Acetaminophen 325 MG 2019 12:00:00 AM EST 2.0 {tablets_as_needed} active Acetaminophen 325 MG eCW1 ([facility]) 3 ML insulin detemir 100 UNT/ML Pen Inje ctor [Levemir] Levemir FlexTouch 100 UNIT/ML Levemir FlexTouch 100 UNIT/ML 02/03/2020 12:00:00 AM EST active Levemir FlexTouch 100 UNIT/ML eC W1 ([facility]) Acetaminophen 325 MG Oral Tablet Acetaminophen 325 MG 2019 12:00:00 AM EST 2.0 {tablets_as_needed} active Acetaminophen 325 MG eCW1 ([facility]) Amlodipine 5 MG Oral Tablet AmLODIPine Besylate 5 MG AmLODIP ine Besylate 5 MG 02/03/2020 12:00:00 AM EST 1.0 {tablet} active AmLODIPine Besylate 5 MG eCW1 ([facility]) Acetaminophen 325 MG Oral Tablet Acetaminophen 325 MG 2019 12:00:00 AM EST 2.0 {tablets_as_needed} active Acetaminophen 325 MG eCW1 ([facility]) 3 ML insulin detemir 100 UNT/ML Pen Inje ctor [Levemir] Levemir FlexTouch 100 UNIT/ML Levemir FlexTouch 100 UNIT/ML 02/03/2020 12:00:00 AM EST active Levemir FlexTouch 100 UNIT/ML eC W1 ([facility]) 3 ML insulin detemir 100 UNT/ML Pen Inje ctor [Levemir] Levemir FlexTouch 100 UNIT/ML Levemir FlexTouch 100 UNIT/ML 02/03/2020 12:00:00 AM EST active Levemir FlexTouch 100 UNIT/ML eC W1 ([facility]) 3 ML insulin detemir 100 UNT/ML Pen Inje ctor [Levemir] Levemir FlexTouch 100 UNIT/ML Levemir FlexTouch 100 UNIT/ML 02/03/2020 12:00:00 AM EST active Levemir FlexTouch 100 UNIT/ML eC W1 ([facility]) 3 ML insulin detemir 100 UNT/ML Pen Inje ctor [Levemir] Levemir FlexTouch 100 UNIT/ML Levemir FlexTouch 100 UNIT/ML 02/03/2020 12:00:00 AM EST active Levemir FlexTouch 100 UNIT/ML eC W1 ([facility]) Acetaminophen 325 MG Oral Tablet Acetaminophen 325 MG 2019 12:00:00 AM EST 2.0 {tablets_as_needed} active Acetaminophen 325 MG eCW1 ([facility]) 3 ML insulin detemir 100 UNT/ML Pen Inje ctor [Levemir] Levemir FlexTouch 100 UNIT/ML Levemir FlexTouch 100 UNIT/ML 02/03/2020 12:00:00 AM EST active Levemir FlexTouch 100 UNIT/ML eC W1 ([facility]) Amlodipine 5 MG Oral Tablet AmLODIPine Besylate 5 MG AmLODIP ine Besylate 5 MG 02/03/2020 12:00:00 AM EST 1.0 {tablet} active AmLODIPine Besylate 5 MG eCW1 ([facility]) Acetaminophen 325 MG Oral Tablet Acetaminophen 325 MG 2019 12:00:00 AM EST 2.0 {tablets_as_needed} active Acetaminophen 325 MG eCW1 ([facility]) 3 ML insulin detemir 100 UNT/ML Pen Inje ctor [Levemir] Levemir FlexTouch 100 UNIT/ML Levemir FlexTouch 100 UNIT/ML 02/03/2020 12:00:00 AM EST active Levemir FlexTouch 100 UNIT/ML eC W1 ([facility]) Acetaminophen 325 MG Oral Tablet Acetaminophen 325 MG 2019 12:00:00 AM EST 2.0 {tablets_as_needed} active Acetaminophen 325 MG eCW1 ([facility]) Hydrochlorothiazide 12.5 MG Oral Tablet Hydrochlorothiazide 12.5 MG 02/03/2020 12:00:00 AM EST 1.0 {tablet_in_the_morning} acti ve Hydrochlorothiazide 12.5 MG eCW1 ([facility]) Amlodipine 5 MG Oral Tablet AmLODIPine Besylate 5 MG AmLODIP ine Besylate 5 MG 02/03/2020 12:00:00 AM EST 1.0 {tablet} active AmLODIPine Besylate 5 MG eCW1 ([facility]) Acetaminophen 325 MG Oral Tablet Acetaminophen 325 MG 2019 12:00:00 AM EST 2.0 {tablets_as_needed} active Acetaminophen 325 MG eCW1 ([facility]) 3 ML insulin detemir 100 UNT/ML Pen Inje ctor [Levemir] Levemir FlexTouch 100 UNIT/ML Levemir FlexTouch 100 UNIT/ML 02/03/2020 12:00:00 AM EST active Levemir FlexTouch 100 UNIT/ML eC W1 ([facility]) Amlodipine 5 MG Oral Tablet AmLODIPine Besylate 5 MG AmLODIP ine Besylate 5 MG 02/03/2020 12:00:00 AM EST 1.0 {tablet} active AmLODIPine Besylate 5 MG eCW1 ([facility]) 3 ML insulin detemir 100 UNT/ML Pen Inje ctor [Levemir] Levemir FlexTouch 100 UNIT/ML Levemir FlexTouch 100 UNIT/ML 02/03/2020 12:00:00 AM EST active Levemir FlexTouch 100 UNIT/ML eC W1 ([facility]) Amlodipine 5 MG Oral Tablet AmLODIPine Besylate 5 MG AmLODIP ine Besylate 5 MG 02/03/2020 12:00:00 AM EST 1.0 {tablet} active AmLODIPine Besylate 5 MG eCW1 ([facility]) 3 ML insulin detemir 100 UNT/ML Pen Inje ctor [Levemir] Levemir FlexTouch 100 UNIT/ML Levemir FlexTouch 100 UNIT/ML 02/03/2020 12:00:00 AM EST active Levemir FlexTouch 100 UNIT/ML eC W1 ([facility]) Amlodipine 5 MG Oral Tablet AmLODIPine Besylate 5 MG AmLODIP ine Besylate 5 MG 02/03/2020 12:00:00 AM EST 1.0 {tablet} active AmLODIPine Besylate 5 MG eCW1 ([facility]) Acetaminophen 325 MG Oral Tablet Acetaminophen 325 MG 2019 12:00:00 AM EST 2.0 {tablets_as_needed} active Acetaminophen 325 MG eCW1 ([facility]) 3 ML insulin detemir 100 UNT/ML Pen Inje ctor [Levemir] Levemir FlexTouch 100 UNIT/ML Levemir FlexTouch 100 UNIT/ML 02/03/2020 12:00:00 AM EST active Levemir FlexTouch 100 UNIT/ML eC W1 ([facility]) 3 ML insulin detemir 100 UNT/ML Pen Inje ctor [Levemir] Levemir FlexTouch 100 UNIT/ML Levemir FlexTouch 100 UNIT/ML 02/03/2020 12:00:00 AM EST active Levemir FlexTouch 100 UNIT/ML eC W1 ([facility]) Acetaminophen 325 MG Oral Tablet Acetaminophen 325 MG 2019 12:00:00 AM EST 2.0 {tablets_as_needed} active Acetaminophen 325 MG eCW1 ([facility]) Amlodipine 5 MG Oral Tablet AmLODIPine Besylate 5 MG AmLODIP ine Besylate 5 MG 02/03/2020 12:00:00 AM EST 1.0 {tablet} active AmLODIPine Besylate 5 MG eCW1 ([facility]) Acetaminophen 325 MG Oral Tablet Acetaminophen 325 MG 2019 12:00:00 AM EST 2.0 {tablets_as_needed} active Acetaminophen 325 MG eCW1 ([facility]) 3 ML insulin detemir 100 UNT/ML Pen Inje ctor [Levemir] Levemir FlexTouch 100 UNIT/ML [facility] FlexTouch 100 UNIT/ML 02/03/2020 12:00:00 AM EST active [facility] FlexTouch 100 UNIT/ML eC W1 ([facility]) 3 ML insulin detemir 100 UNT/ML Pen Inje ctor [Levemir] Le[facility]mir FlexTouch 100 UNIT/ML [facility] FlexTouch 100 UNIT/ML 02/03/2020 12:00:00 AM EST active [facility] FlexTouch 100 UNIT/ML eC W1 ([facility]) 3 ML insulin detemir 100 UNT/ML Pen Inje ctor [Levemir] Le[facility]mir FlexTouch 100 UNIT/ML [facility] FlexTouch 100 UNIT/ML 02/03/2020 12:00:00 AM EST active [facility] FlexTouch 100 UNIT/ML eC W1 ([facility]) 3 ML insulin detemir 100 UNT/ML Pen Inje ctor [Levemir] Le[facility]mir FlexTouch 100 UNIT/ML [facility] FlexTouch 100 UNIT/ML 02/03/2020 12:00:00 AM EST active [facility] FlexTouch 100 UNIT/ML eC W1 ([facility]) Acetaminophen 325 MG Oral Tablet Acetaminophen 325 MG 2019 12:00:00 AM EST 2.0 {tablets_as_needed} active Acetaminophen 325 MG eCW1 ([facility]) 3 ML insulin detemir 100 UNT/ML Pen Inje ctor [Levemir] Le[facility]mir FlexTouch 100 UNIT/ML [facility] FlexTouch 100 UNIT/ML 02/03/2020 12:00:00 AM EST active [facility] FlexTouch 100 UNIT/ML eC W1 ([facility]) 3 ML insulin detemir 100 UNT/ML Pen Inje ctor [Levemir] [facility]mir FlexTouch 100 UNIT/ML [facility] FlexTouch 100 UNIT/ML 02/03/2020 12:00:00 AM EST active [facility] FlexTouch 100 UNIT/ML eC W1 ([facility]) Acetaminophen 325 MG Oral Tablet Acetaminophen 325 MG 2019 12:00:00 AM EST 2.0 {tablets_as_needed} active Acetaminophen 325 MG eCW1 ([facility]) 3 ML insulin detemir 100 UNT/ML Pen In[place] [Levemir] Levemir FlexTouch 100 UNIT/ML Levemir FlexTouch 100 UNIT/ML 02/03/2020 12:00:00 AM EST active Levemir FlexTouch 100 UNIT/ML eC W1 ([facility]) 3 ML insulin detemir 100 UNT/ML Pen Inje ctor [Levemir] Levemir FlexTouch 100 UNIT/ML Levemir FlexTouch 100 UNIT/ML 02/03/2020 12:00:00 AM EST active Levemir FlexTouch 100 UNIT/ML eC W1 ([facility]) Amlodipine 5 MG Oral Tablet AmLODIPine Besylate 5 MG AmLODIP ine Besylate 5 MG 02/03/2020 12:00:00 AM EST 1.0 {tablet} active AmLODIPine Besylate 5 MG eCW1 ([facility]) 3 ML insulin detemir 100 UNT/ML Pen [place] [Levemir] Levemir FlexTouch 100 UNIT/ML Levemir FlexTouch 100 UNIT/ML 02/03/2020 12:00:00 AM EST active Levemir FlexTouch 100 UNIT/ML eC W1 ([facility]) 3 ML insulin detemir 100 UNT/ML Pen [place]je ctor [Levemir] Levemir FlexTouch 100 UNIT/ML Levemir FlexTouch 100 UNIT/ML 02/03/2020 12:00:00 AM EST active Levemir FlexTouch 100 UNIT/ML eC W1 ([facility]) 3 ML insulin detemir 100 UNT/ML Pen [place] c[place] [Levemir] Levemir FlexTouch 100 UNIT/ML Levemir FlexTouch 100 UNIT/ML 02/03/2020 12:00:00 AM EST active Levemir FlexTouch 100 UNIT/ML eC W1 ([facility]) 3 ML insulin detemir 100 UNT/ML [place] [Levemir] Levemir FlexTouch 100 UNIT/ML Levemir FlexTouch 100 UNIT/ML 02/03/2020 12:00:00 AM EST active Levemir FlexTouch 100 UNIT/ML eC W1 ([facility]) 3 ML insulin detemir 100 UNT/ML Pen [place]je ctor [Levemir] Levemir FlexTouch 100 UNIT/ML Levemir FlexTouch 100 UNIT/ML 02/03/2020 12:00:00 AM EST active Levemir FlexTouch 100 UNIT/ML eC W1 ([facility]) 3 ML insulin detemir 100 UNT/ML Pen Inje ctor [Levemir] Levemir FlexTouch 100 UNIT/ML Levemir FlexTouch 100 UNIT/ML 02/03/2020 12:00:00 AM EST active Levemir FlexTouch 100 UNIT/ML eC W1 ([facility]) Amlodipine 5 MG Oral Tablet AmLODIPine Besylate 5 MG AmLODIP ine Besylate 5 MG 02/03/2020 12:00:00 AM EST 1.0 {tablet} active AmLODIPine Besylate 5 MG eCW1 ([facility]) Hydrochlorothiazide 12.5 MG Oral Capsule hydrochlorothiazide (MICROZIDE) 12.5 MG capsule hydrochlorothiazide (MICROZIDE) 12.5 MG capsule 2019 12:00:00 AM EST aborted [facility] ferrous sulfate 325 MG Delayed Release O ral Tablet Ferrous Sulfate 325 (65 Fe) MG Ferrous Sulfate 325 (65 Fe) MG 01/26/2020 12:00:00 AM EST 1. 0 {tablet} active Ferrous Sulfate 325 (65 Fe) MG eCW1 ([facility]) ferrous sulfate 325 MG Delayed Release O ral Tablet Ferrous Sulfate 325 (65 Fe) MG Ferrous Sulfate 325 (65 Fe) MG 01/26/2020 12:00:00 AM EST 1. 0 {tablet} active Ferrous Sulfate 325 (65 Fe) MG eCW1 ([facility]) [place] 5/16" UNK 01/26/2020 12:00:00 AM EST active [place] 5/16" eCW1 ([facility]) [place] 5/16" UNK 01/26/2020 12:00:00 AM EST active [place] 5/16" eCW1 ([facility]) [place] 5/16" UNK 01/26/2020 12:00:00 AM EST active [place] 5/16" eCW1 ([facility]) [place] 5/16" UNK 01/26/2020 12:00:00 AM EST active [place] 516" eCW1 ([facility]) [place] 516" UNK 01/26/2020 12:00:00 AM EST active [place] 516" eCW1 ([facility]) ferrous sulfate 325 MG Delayed Release O ral Tablet Ferrous Sulfate 325 (65 Fe) MG Ferrous Sulfate 325 (65 Fe) MG 01/26/2020 12:00:00 AM EST 1. 0 {tablet} active Ferrous Sulfate 325 (65 Fe) MG eCW1 ([facility]) [place] 516" UNK 01/26/2020 12:00:00 AM EST active [place] 516" eCW1 ([facility]) ferrous sulfate 325 MG Delayed Release O ral Tablet Ferrous Sulfate 325 (65 Fe) MG Ferrous Sulfate 325 (65 Fe) MG 01/26/2020 12:00:00 AM EST 1. 0 {tablet} active Ferrous Sulfate 325 (65 Fe) MG eCW1 ([facility]) ferrous sulfate 325 MG Delayed Release O ral Tablet Ferrous Sulfate 325 (65 Fe) MG Ferrous Sulfate 325 (65 Fe) MG 01/26/2020 12:00:00 AM EST 1. 0 {tablet} active Ferrous Sulfate 325 (65 Fe) MG eCW1 ([facility]) [place] 516" UNK 01/26/2020 12:00:00 AM EST active [place] 516" eCW1 ([facility]) ferrous sulfate 325 MG Delayed Release O ral Tablet Ferrous Sulfate 325 (65 Fe) MG Ferrous Sulfate 325 (65 Fe) MG 01/26/2020 12:00:00 AM EST 1. 0 {tablet} active Ferrous Sulfate 325 (65 Fe) MG eCW1 ([facility]) ferrous sulfate 325 MG Delayed Release O ral Tablet Ferrous Sulfate 325 (65 Fe) MG Ferrous Sulfate 325 (65 Fe) MG 01/26/2020 12:00:00 AM EST 1. 0 {tablet} active Ferrous Sulfate 325 (65 Fe) MG eCW1 ([facility]) [place] 5/16" UNK 01/26/2020 12:00:00 AM EST active [place] 516" eCW1 ([facility]) ferrous sulfate 325 MG Delayed Release O ral Tablet Ferrous Sulfate 325 (65 Fe) MG Ferrous Sulfate 325 (65 Fe) MG 01/26/2020 12:00:00 AM EST 1. 0 {tablet} active Ferrous Sulfate 325 (65 Fe) MG eCW1 ([facility]) [place] 5/16" UNK 01/26/2020 12:00:00 AM EST active [place] 5/16" eCW1 ([facility]) ferrous sulfate 325 MG Delayed Release O ral Tablet Ferrous Sulfate 325 (65 Fe) MG Ferrous Sulfate 325 (65 Fe) MG 01/26/2020 12:00:00 AM EST 1. 0 {tablet} active Ferrous Sulfate 325 (65 Fe) MG eCW1 ([facility]) ferrous sulfate 325 MG Delayed Release O ral Tablet Ferrous Sulfate 325 (65 Fe) MG Ferrous Sulfate 325 (65 Fe) MG 01/26/2020 12:00:00 AM EST 1. 0 {tablet} active Ferrous Sulfate 325 (65 Fe) MG eCW1 ([facility]) ferrous sulfate 325 MG Delayed Release O ral Tablet Ferrous Sulfate 325 (65 Fe) MG Ferrous Sulfate 325 (65 Fe) MG 01/26/2020 12:00:00 AM EST 1. 0 {tablet} active Ferrous Sulfate 325 (65 Fe) MG eCW1 ([facility]) ferrous sulfate 325 MG Delayed Release O ral Tablet Ferrous Sulfate 325 (65 Fe) MG Ferrous Sulfate 325 (65 Fe) MG 01/26/2020 12:00:00 AM EST 1. 0 {tablet} active Ferrous Sulfate 325 (65 Fe) MG eCW1 ([facility]) [place] 5/16" UNK 01/26/2020 12:00:00 AM EST active [place] 5/16" eCW1 ([facility]) [place] 5/16" UNK 01/26/2020 12:00:00 AM EST active [place] 5/16" eCW1 ([facility]) ferrous sulfate 325 MG Delayed Release O ral Tablet Ferrous Sulfate 325 (65 Fe) MG Ferrous Sulfate 325 (65 Fe) MG 01/26/2020 12:00:00 AM EST 1. 0 {tablet} active Ferrous Sulfate 325 (65 Fe) MG eCW1 ([facility]) [place] 5/16" UNK 01/26/2020 12:00:00 AM EST active [place] 5/16" eCW1 ([facility]) [place] 5/16" UNK 01/26/2020 12:00:00 AM EST active [place] 5/16" eCW1 ([facility]) ferrous sulfate 325 MG Delayed Release O ral Tablet Ferrous Sulfate 325 (65 Fe) MG Ferrous Sulfate 325 (65 Fe) MG 01/26/2020 12:00:00 AM EST 1. 0 {tablet} active Ferrous Sulfate 325 (65 Fe) MG eCW1 ([facility]) [place] 5/16" UNK 01/26/2020 12:00:00 AM EST active [place] 5/16" eCW1 ([facility]) [place] 5/16" UNK 01/26/2020 12:00:00 AM EST active [place] 5/16" eCW1 ([facility]) ferrous sulfate 325 MG Delayed Release O ral Tablet Ferrous Sulfate 325 (65 Fe) MG Ferrous Sulfate 325 (65 Fe) MG 01/26/2020 12:00:00 AM EST 1. 0 {tablet} active Ferrous Sulfate 325 (65 Fe) MG eCW1 ([facility]) [place] 5/16" UNK 01/26/2020 12:00:00 AM EST active [place] 5/16" eCW1 ([facility]) [place] 5/16" UNK 01/26/2020 12:00:00 AM EST active [place] 5/16" eCW1 ([facility]) ferrous sulfate 325 MG Delayed Release O ral Tablet Ferrous Sulfate 325 (65 Fe) MG Ferrous Sulfate 325 (65 Fe) MG 01/26/2020 12:00:00 AM EST 1. 0 {tablet} active Ferrous Sulfate 325 (65 Fe) MG eCW1 ([facility]) ferrous sulfate 325 MG Delayed Release O ral Tablet Ferrous Sulfate 325 (65 Fe) MG Ferrous Sulfate 325 (65 Fe) MG 01/26/2020 12:00:00 AM EST 1. 0 {tablet} active Ferrous Sulfate 325 (65 Fe) MG eCW1 ([facility]) ferrous sulfate 325 MG Delayed Release O ral Tablet Ferrous Sulfate 325 (65 Fe) MG Ferrous Sulfate 325 (65 Fe) MG 01/26/2020 12:00:00 AM EST 1. 0 {tablet} active Ferrous Sulfate 325 (65 Fe) MG eCW1 ([facility]) [place] 5/16" UNK 01/26/2020 12:00:00 AM EST active [place] 5/16" eCW1 ([facility]) ferrous sulfate 325 MG Delayed Release O ral Tablet Ferrous Sulfate 325 (65 Fe) MG Ferrous Sulfate 325 (65 Fe) MG 01/26/2020 12:00:00 AM EST 1. 0 {tablet} active Ferrous Sulfate 325 (65 Fe) MG eCW1 ([facility]) [place] 5/16" UNK 01/26/2020 12:00:00 AM EST active [place] 5/16" eCW1 ([facility]) [place] 5/16" UNK 01/26/2020 12:00:00 AM EST active [place] 5/16" eCW1 ([facility]) ferrous sulfate 325 MG Delayed Release O ral Tablet Ferrous Sulfate 325 (65 Fe) MG Ferrous Sulfate 325 (65 Fe) MG 01/26/2020 12:00:00 AM EST 1. 0 {tablet} active Ferrous Sulfate 325 (65 Fe) MG W1 ([facility]) ferrous sulfate 325 MG Delayed Release O ral Tablet Ferrous Sulfate 325 (65 Fe) MG Ferrous Sulfate 325 (65 Fe) MG 01/26/2020 12:00:00 AM EST 1. 0 {tablet} active Ferrous Sulfate 325 (65 Fe) MG eCW1 ([facility]) ferrous sulfate 325 MG Delayed Release O ral Tablet Ferrous Sulfate 325 (65 Fe) MG Ferrous Sulfate 325 (65 Fe) MG 01/26/2020 12:00:00 AM EST 1. 0 {tablet} active Ferrous Sulfate 325 (65 Fe) MG eCW1 ([facility]) [place] 5/16" UNK 01/26/2020 12:00:00 AM EST active [place] 5/16" eCW1 ([facility]) [place] 5/16" UNK 01/26/2020 12:00:00 AM EST active [place] 5/16" eCW1 ([facility]) ferrous sulfate 325 MG Delayed Release O ral Tablet Ferrous Sulfate 325 (65 Fe) MG Ferrous Sulfate 325 (65 Fe) MG 01/26/2020 12:00:00 AM EST 1. 0 {tablet} active Ferrous Sulfate 325 (65 Fe) MG eCW1 ([facility]) ferrous sulfate 325 MG Delayed Release O ral Tablet Ferrous Sulfate 325 (65 Fe) MG Ferrous Sulfate 325 (65 Fe) MG 01/26/2020 12:00:00 AM EST 1. 0 {tablet} active Ferrous Sulfate 325 (65 Fe) MG eCW1 ([facility]) ferrous sulfate 325 MG Delayed Release O ral Tablet Ferrous Sulfate 325 (65 Fe) MG Ferrous Sulfate 325 (65 Fe) MG 01/26/2020 12:00:00 AM EST 1. 0 {tablet} active Ferrous Sulfate 325 (65 Fe) MG eCW1 ([facility]) [place] 5/16" UNK 01/26/2020 12:00:00 AM EST active [place] 5/16" eCW1 ([facility]) [place] 5/16" UNK 01/26/2020 12:00:00 AM EST active [place] 5/16" eCW1 ([facility]) ferrous sulfate 325 MG Delayed Release O ral Tablet Ferrous Sulfate 325 (65 Fe) MG Ferrous Sulfate 325 (65 Fe) MG 01/26/2020 12:00:00 AM EST 1. 0 {tablet} active Ferrous Sulfate 325 (65 Fe) MG eCW1 ([facility]) [place] 5/16" UNK 01/26/2020 12:00:00 AM EST active [place] 5/16" eCW1 ([facility]) ferrous sulfate 325 MG Delayed Release O ral Tablet Ferrous Sulfate 325 (65 Fe) MG Ferrous Sulfate 325 (65 Fe) MG 01/26/2020 12:00:00 AM EST 1. 0 {tablet} active Ferrous Sulfate 325 (65 Fe) MG eCW1 ([facility]) ferrous sulfate 325 MG Delayed Release O ral Tablet Ferrous Sulfate 325 (65 Fe) MG Ferrous Sulfate 325 (65 Fe) MG 01/26/2020 12:00:00 AM EST 1. 0 {tablet} active Ferrous Sulfate 325 (65 Fe) MG eCW1 ([facility]) [place] 5/16" UNK 01/26/2020 12:00:00 AM EST active [place] 5/16" eCW1 ([facility]) ferrous sulfate 325 MG Delayed Release O ral Tablet Ferrous Sulfate 325 (65 Fe) MG Ferrous Sulfate 325 (65 Fe) MG 01/26/2020 12:00:00 AM EST 1. 0 {tablet} active Ferrous Sulfate 325 (65 Fe) MG eCW1 ([facility]) ferrous sulfate 325 MG Delayed Release O ral Tablet Ferrous Sulfate 325 (65 Fe) MG Ferrous Sulfate 325 (65 Fe) MG 01/26/2020 12:00:00 AM EST 1. 0 {tablet} active Ferrous Sulfate 325 (65 Fe) MG eCW1 ([facility]) ferrous sulfate 325 MG Delayed Release O ral Tablet Ferrous Sulfate 325 (65 Fe) MG Ferrous Sulfate 325 (65 Fe) MG 01/26/2020 12:00:00 AM EST 1. 0 {tablet} active Ferrous Sulfate 325 (65 Fe) MG [facility] ([facility]) ferrous sulfate 325 MG Delayed Release O ral Tablet Ferrous Sulfate 325 (65 Fe) MG Ferrous Sulfate 325 (65 Fe) MG 01/26/2020 12:00:00 AM EST 1. 0 {tablet} active Ferrous Sulfate 325 (65 Fe) MG [facility] ([facility]) [place] 5/16" UNK 01/26/2020 12:00:00 AM EST active [place] 5/16" W ([facility]) [place] 5/16" UNK 01/26/2020 12:00:00 AM EST active [place] 5/16" W ([facility]) [place] 5/16" UNK 01/26/2020 12:00:00 AM EST active [place] 5/16" eCW1 ([facility]) ferrous sulfate 325 MG Delayed Release O ral Tablet Ferrous Sulfate 325 (65 Fe) MG Ferrous Sulfate 325 (65 Fe) MG 01/26/2020 12:00:00 AM EST 1. 0 {tablet} active Ferrous Sulfate 325 (65 Fe) MG eC ([facility]) [place] 5/16" UNK 01/26/2020 12:00:00 AM EST active [place] 5/16" eCW1 ([facility]) [place] 5/16" UNK 01/26/2020 12:00:00 AM EST active [place] 5/16" eCW1 ([facility]) [place] 5/16" UNK 01/26/2020 12:00:00 AM EST active [place] 5/16" eCW1 ([facility]) [place] 5/16" UNK 01/26/2020 12:00:00 AM EST active [place] 5/16" eCW1 ([facility]) [place] 5/16" UNK 01/26/2020 12:00:00 AM EST active [place] 5/16" eCW1 ([facility]) [place] 5/16" UNK 01/26/2020 12:00:00 AM EST active [place] 5/16" eCW1 ([facility]) ferrous sulfate 325 MG Delayed Release O ral Tablet Ferrous Sulfate 325 (65 Fe) MG Ferrous Sulfate 325 (65 Fe) MG 01/26/2020 12:00:00 AM EST 1. 0 {tablet} active Ferrous Sulfate 325 (65 Fe) MG [facility] ([facility]) ferrous sulfate 325 MG Delayed Release O ral Tablet Ferrous Sulfate 325 (65 Fe) MG Ferrous Sulfate 325 (65 Fe) MG 01/26/2020 12:00:00 AM EST 1. 0 {tablet} active Ferrous Sulfate 325 (65 Fe) MG [facility] ([facility]) [place] 5/16" UNK 01/26/2020 12:00:00 AM EST active [place] 5/16" eCW1 ([facility]) [place] 5/16" UNK 01/26/2020 12:00:00 AM EST active [place] 5/16" eCW1 ([facility]) ferrous sulfate 325 MG Delayed Release O ral Tablet Ferrous Sulfate 325 (65 Fe) MG Ferrous Sulfate 325 (65 Fe) MG 01/26/2020 12:00:00 AM EST 1. 0 {tablet} active Ferrous Sulfate 325 (65 Fe) MG eCW1 ([facility]) ferrous sulfate 325 MG Delayed Release O ral Tablet Ferrous Sulfate 325 (65 Fe) MG Ferrous Sulfate 325 (65 Fe) MG 01/26/2020 12:00:00 AM EST 1. 0 {tablet} active Ferrous Sulfate 325 (65 Fe) MG eCW1 ([facility]) ferrous sulfate 325 MG Delayed Release O ral Tablet Ferrous Sulfate 325 (65 Fe) MG Ferrous Sulfate 325 (65 Fe) MG 01/26/2020 12:00:00 AM EST 1. 0 {tablet} active Ferrous Sulfate 325 (65 Fe) MG eCW1 ([facility]) ferrous sulfate 325 MG Delayed Release O ral Tablet Ferrous Sulfate 325 (65 Fe) MG Ferrous Sulfate 325 (65 Fe) MG 01/26/2020 12:00:00 AM EST 1. 0 {tablet} active Ferrous Sulfate 325 (65 Fe) MG W1 ([facility]) [place] 5/16" UNK 01/26/2020 12:00:00 AM EST active [place] 5/16" W1 ([facility]) [place] 5/16" UNK 01/26/2020 12:00:00 AM EST active [place] 5/16" W1 ([facility]) [place] 5/16" UNK 01/26/2020 12:00:00 AM EST active [place] 5/16" W1 ([facility]) [place] 5/16" UNK 01/26/2020 12:00:00 AM EST active [place] 5/16" eCW1 ([facility]) ferrous sulfate 325 MG Delayed Release O ral Tablet Ferrous Sulfate 325 (65 Fe) MG Ferrous Sulfate 325 (65 Fe) MG 01/26/2020 12:00:00 AM EST 1. 0 {tablet} active Ferrous Sulfate 325 (65 Fe) MG [facility] ([facility]) [place] 5/16" UNK 01/26/2020 12:00:00 AM EST active [place] 5/16" W1 ([facility]) [place] 5/16" UNK 01/26/2020 12:00:00 AM EST active [place] 5/16" W1 ([facility]) [place] 5/16" UNK 01/26/2020 12:00:00 AM EST active [place] 5/16" eCW1 ([facility]) [place] 5/16" UNK 01/26/2020 12:00:00 AM EST active [place] 5/16" eCW1 ([facility]) ferrous sulfate 325 MG Delayed Release O ral Tablet Ferrous Sulfate 325 (65 Fe) MG Ferrous Sulfate 325 (65 Fe) MG 01/26/2020 12:00:00 AM EST 1. 0 {tablet} active Ferrous Sulfate 325 (65 Fe) MG eCW1 ([facility]) [place] 5/16" UNK 01/26/2020 12:00:00 AM EST active [place] 5/16" eCW1 ([facility]) ferrous sulfate 325 MG Delayed Release O ral Tablet Ferrous Sulfate 325 (65 Fe) MG Ferrous Sulfate 325 (65 Fe) MG 01/26/2020 12:00:00 AM EST 1. 0 {tablet} active Ferrous Sulfate 325 (65 Fe) MG eCW1 ([facility]) [place] 5/16" UNK 01/26/2020 12:00:00 AM EST active [place] 5/16" eCW1 ([facility]) ferrous sulfate 325 MG Delayed Release O ral Tablet Ferrous Sulfate 325 (65 Fe) MG Ferrous Sulfate 325 (65 Fe) MG 01/26/2020 12:00:00 AM EST 1. 0 {tablet} active Ferrous Sulfate 325 (65 Fe) MG eCW1 ([facility]) [place] 5/16" UNK 01/26/2020 12:00:00 AM EST active [place] 5/16" eCW1 ([facility]) [place] 5/16" UNK 01/26/2020 12:00:00 AM EST active [place] 5/16" eCW1 ([facility]) [place] 5/16" UNK 01/26/2020 12:00:00 AM EST active [place] 5/16" eCW1 ([facility]) [place] 5/16" UNK 01/26/2020 12:00:00 AM EST active [place] 5/16" eCW1 ([facility]) [place] 5/16" UNK 01/26/2020 12:00:00 AM EST active [place] 5/16" eCW1 ([facility]) ferrous sulfate 325 MG Delayed Release O ral Tablet Ferrous Sulfate 325 (65 Fe) MG Ferrous Sulfate 325 (65 Fe) MG 01/26/2020 12:00:00 AM EST 1. 0 {tablet} active Ferrous Sulfate 325 (65 Fe) MG eCW1 ([facility]) [place] 5/16" UNK 01/26/2020 12:00:00 AM EST active [place] 5/16" eCW1 ([facility]) ferrous sulfate 325 MG Delayed Release O ral Tablet Ferrous Sulfate 325 (65 Fe) MG Ferrous Sulfate 325 (65 Fe) MG 01/26/2020 12:00:00 AM EST 1. 0 {tablet} active Ferrous Sulfate 325 (65 Fe) MG eCW1 ([facility]) [place] 5/16" UNK 01/26/2020 12:00:00 AM EST active [place] 5/16" eCW1 ([facility]) [place] 5/16" UNK 01/26/2020 12:00:00 AM EST active [place] 5/16" eCW1 ([facility]) ferrous sulfate 325 MG Delayed Release O ral Tablet Ferrous Sulfate 325 (65 Fe) MG Ferrous Sulfate 325 (65 Fe) MG 01/26/2020 12:00:00 AM EST 1. 0 {tablet} active Ferrous Sulfate 325 (65 Fe) MG eCW1 ([facility]) [place] 5/16" UNK 01/26/2020 12:00:00 AM EST active [place] 5/16" eCW1 ([facility]) ferrous sulfate 325 MG Delayed Release O ral Tablet Ferrous Sulfate 325 (65 Fe) MG Ferrous Sulfate 325 (65 Fe) MG 01/26/2020 12:00:00 AM EST 1. 0 {tablet} active Ferrous Sulfate 325 (65 Fe) MG eCW1 ([facility]) ferrous sulfate 325 MG Delayed Release O ral Tablet Ferrous Sulfate 325 (65 Fe) MG Ferrous Sulfate 325 (65 Fe) MG 01/26/2020 12:00:00 AM EST 1. 0 {tablet} active Ferrous Sulfate 325 (65 Fe) MG eCW1 ([facility]) [place] 5/16" UNK 01/26/2020 12:00:00 AM EST active [place] 5/16" eCW1 ([facility]) ferrous sulfate 325 MG Delayed Release O ral Tablet Ferrous Sulfate 325 (65 Fe) MG Ferrous Sulfate 325 (65 Fe) MG 01/26/2020 12:00:00 AM EST 1. 0 {tablet} active Ferrous Sulfate 325 (65 Fe) MG eCW1 ([facility]) ferrous sulfate 325 MG Delayed Release O ral Tablet Ferrous Sulfate 325 (65 Fe) MG Ferrous Sulfate 325 (65 Fe) MG 01/26/2020 12:00:00 AM EST 1. 0 {tablet} active Ferrous Sulfate 325 (65 Fe) MG W1 ([facility]) [place] 5/16" UNK 01/26/2020 12:00:00 AM EST active [place] 5/16" eCW1 ([facility]) [place] 5/16" UNK 01/26/2020 12:00:00 AM EST active [place] 5/16" eCW1 ([facility]) [place] 5/16" UNK 01/26/2020 12:00:00 AM EST active [place] 5/16" W1 ([facility]) [place] 5/16" UNK 01/26/2020 12:00:00 AM EST active [place] 5/16" eCW1 ([facility]) ferrous sulfate 325 MG Delayed Release O ral Tablet Ferrous Sulfate 325 (65 Fe) MG Ferrous Sulfate 325 (65 Fe) MG 01/26/2020 12:00:00 AM EST 1. 0 {tablet} active Ferrous Sulfate 325 (65 Fe) MG W1 ([facility]) [place] 5/16" UNK 01/26/2020 12:00:00 AM EST active [place] 5/16" W1 ([facility]) [place] 5/16" UNK 01/26/2020 12:00:00 AM EST active [place] 5/16" eCW1 ([facility]) ferrous sulfate 325 MG Delayed Release O ral Tablet Ferrous Sulfate 325 (65 Fe) MG Ferrous Sulfate 325 (65 Fe) MG 01/26/2020 12:00:00 AM EST 1. 0 {tablet} active Ferrous Sulfate 325 (65 Fe) MG W1 ([facility]) [place] 5/16" UNK 01/26/2020 12:00:00 AM EST active [place] 5/16" eCW1 ([facility]) [place] 5/16" UNK 01/26/2020 12:00:00 AM EST active [place] 5/16" eCW1 ([facility]) ferrous sulfate 325 MG Delayed Release O ral Tablet Ferrous Sulfate 325 (65 Fe) MG Ferrous Sulfate 325 (65 Fe) MG 01/26/2020 12:00:00 AM EST 1. 0 {tablet} active Ferrous Sulfate 325 (65 Fe) MG eCW1 ([facility]) ferrous sulfate 325 MG Delayed Release O ral Tablet Ferrous Sulfate 325 (65 Fe) MG Ferrous Sulfate 325 (65 Fe) MG 01/26/2020 12:00:00 AM EST 1. 0 {tablet} active Ferrous Sulfate 325 (65 Fe) MG eCW1 ([facility]) ferrous sulfate 325 MG Delayed Release O ral Tablet Ferrous Sulfate 325 (65 Fe) MG Ferrous Sulfate 325 (65 Fe) MG 01/26/2020 12:00:00 AM EST 1. 0 {tablet} active Ferrous Sulfate 325 (65 Fe) MG eCW1 ([facility]) [place] 5/16" UNK 01/26/2020 12:00:00 AM EST active [place] 5/16" eCW1 ([facility]) [place] 5/16" UNK 01/26/2020 12:00:00 AM EST active [place] 5/16" eCW1 ([facility]) ferrous sulfate 325 MG Delayed Release O ral Tablet Ferrous Sulfate 325 (65 Fe) MG Ferrous Sulfate 325 (65 Fe) MG 01/26/2020 12:00:00 AM EST 1. 0 {tablet} active Ferrous Sulfate 325 (65 Fe) MG eCW1 ([facility]) ferrous sulfate 325 MG Delayed Release O ral Tablet Ferrous Sulfate 325 (65 Fe) MG Ferrous Sulfate 325 (65 Fe) MG 01/26/2020 12:00:00 AM EST 1. 0 {tablet} active Ferrous Sulfate 325 (65 Fe) MG eCW1 ([facility]) ferrous sulfate 325 MG Delayed Release O ral Tablet Ferrous Sulfate 325 (65 Fe) MG Ferrous Sulfate 325 (65 Fe) MG 01/26/2020 12:00:00 AM EST 1. 0 {tablet} active Ferrous Sulfate 325 (65 Fe) MG eCW1 ([facility]) ferrous sulfate 325 MG Delayed Release O ral Tablet Ferrous Sulfate 325 (65 Fe) MG Ferrous Sulfate 325 (65 Fe) MG 01/26/2020 12:00:00 AM EST 1. 0 {tablet} active Ferrous Sulfate 325 (65 Fe) MG eCW1 ([facility]) ferrous sulfate 325 MG Delayed Release O ral Tablet Ferrous Sulfate 325 (65 Fe) MG Ferrous Sulfate 325 (65 Fe) MG 01/26/2020 12:00:00 AM EST 1. 0 {tablet} active Ferrous Sulfate 325 (65 Fe) MG eCW1 ([facility]) ferrous sulfate 325 MG Delayed Release O ral Tablet Ferrous Sulfate 325 (65 Fe) MG Ferrous Sulfate 325 (65 Fe) MG 01/26/2020 12:00:00 AM EST 1. 0 {tablet} active Ferrous Sulfate 325 (65 Fe) MG eCW1 ([facility]) ferrous sulfate 325 MG Delayed Release O ral Tablet Ferrous Sulfate 325 (65 Fe) MG Ferrous Sulfate 325 (65 Fe) MG 01/26/2020 12:00:00 AM EST 1. 0 {tablet} active Ferrous Sulfate 325 (65 Fe) MG eCW1 ([facility]) [place] 5/16" UNK 01/26/2020 12:00:00 AM EST active [place] 5/16" eCW1 ([facility]) ferrous sulfate 325 MG Delayed Release O ral Tablet Ferrous Sulfate 325 (65 Fe) MG Ferrous Sulfate 325 (65 Fe) MG 01/26/2020 12:00:00 AM EST 1. 0 {tablet} active Ferrous Sulfate 325 (65 Fe) MG eCW1 ([facility]) ferrous sulfate 325 MG Delayed Release O ral Tablet Ferrous Sulfate 325 (65 Fe) MG Ferrous Sulfate 325 (65 Fe) MG 01/26/2020 12:00:00 AM EST 1. 0 {tablet} active Ferrous Sulfate 325 (65 Fe) MG eCW1 ([facility]) [place] 5/16" UNK 01/26/2020 12:00:00 AM EST active [place] 5/16" eCW1 ([facility]) ferrous sulfate 325 MG Delayed Release O ral Tablet Ferrous Sulfate 325 (65 Fe) MG Ferrous Sulfate 325 (65 Fe) MG 01/26/2020 12:00:00 AM EST 1. 0 {tablet} active Ferrous Sulfate 325 (65 Fe) MG eCW1 ([facility]) [place] 5/16" UNK 01/26/2020 12:00:00 AM EST active [place] 5/16" eCW1 ([facility]) [place] 5/16" UNK 01/26/2020 12:00:00 AM EST active [place] 516" eCW1 ([facility]) ferrous sulfate 325 MG Delayed Release O ral Tablet Ferrous Sulfate 325 (65 Fe) MG Ferrous Sulfate 325 (65 Fe) MG 01/26/2020 12:00:00 AM EST 1. 0 {tablet} active Ferrous Sulfate 325 (65 Fe) MG eCW1 ([facility]) ferrous sulfate 325 MG Delayed Release O ral Tablet Ferrous Sulfate 325 (65 Fe) MG Ferrous Sulfate 325 (65 Fe) MG 01/26/2020 12:00:00 AM EST 1. 0 {tablet} active Ferrous Sulfate 325 (65 Fe) MG eCW1 ([facility]) ferrous sulfate 325 MG Delayed Release O ral Tablet Ferrous Sulfate 325 (65 Fe) MG Ferrous Sulfate 325 (65 Fe) MG 01/26/2020 12:00:00 AM EST 1. 0 {tablet} active Ferrous Sulfate 325 (65 Fe) MG W1 ([facility]) ferrous sulfate 325 MG Delayed Release O ral Tablet Ferrous Sulfate 325 (65 Fe) MG Ferrous Sulfate 325 (65 Fe) MG 01/26/2020 12:00:00 AM EST 1. 0 {tablet} active Ferrous Sulfate 325 (65 Fe) MG [facility] ([facility]) ferrous sulfate 325 MG Delayed Release O ral Tablet Ferrous Sulfate 325 (65 Fe) MG Ferrous Sulfate 325 (65 Fe) MG 01/26/2020 12:00:00 AM EST 1. 0 {tablet} active Ferrous Sulfate 325 (65 Fe) MG eCW1 ([facility]) ferrous sulfate 325 MG Delayed Release O ral Tablet Ferrous Sulfate 325 (65 Fe) MG Ferrous Sulfate 325 (65 Fe) MG 01/26/2020 12:00:00 AM EST 1. 0 {tablet} active Ferrous Sulfate 325 (65 Fe) MG eCW1 ([facility]) ferrous sulfate 325 MG Delayed Release O ral Tablet Ferrous Sulfate 325 (65 Fe) MG Ferrous Sulfate 325 (65 Fe) MG 01/26/2020 12:00:00 AM EST 1. 0 {tablet} active Ferrous Sulfate 325 (65 Fe) MG eCW1 ([facility]) [place] 5/16" UNK 01/26/2020 12:00:00 AM EST active [place] 516" eCW1 ([facility]) Lancets - Lancets - 12/07/2019 12:00:00 AM EDT act mukesh Lancets - eCW1 ([facility]) Lancets - Lancets - 12/07/2019 12:00:00 AM EDT act mukesh Lancets - eCW1 ([facility]) Lancets - Lancets - 12/07/2019 12:00:00 AM EDT act mukesh Lancets - eCW1 ([facility]) Glucometer UNK 12/07/2019 12:00:00 AM EDT active Glucometer eCW1 ([facility]) Lancets - Lancets - 12/07/2019 12:00:00 AM EDT act mukesh Lancets - eCW1 ([facility]) Glucometer UNK 12/07/2019 12:00:00 AM EDT active Glucometer eCW1 ([facility]) Lancets - Lancets - 12/07/2019 12:00:00 AM EDT act mukesh Lancets - eCW1 ([facility]) Glucometer UNK 12/07/2019 12:00:00 AM EDT active Glucometer eCW1 ([facility]) Lancets - Lancets - 12/07/2019 12:00:00 AM EDT act mukesh Lancets - eCW1 ([facility]) Glucometer UNK 12/07/2019 12:00:00 AM EDT active Glucometer eCW1 ([facility]) Lancets - Lancets - 12/07/2019 12:00:00 AM EDT act mukesh Lancets - eCW1 ([facility]) Glucometer UNK 12/07/2019 12:00:00 AM EDT active Glucometer eCW1 ([facility]) Glucometer UNK 12/07/2019 12:00:00 AM EDT active Glucometer eCW1 ([facility]) Glucometer UNK 12/07/2019 12:00:00 AM EDT active Glucometer eCW1 ([facility]) Glucometer UNK 12/07/2019 12:00:00 AM EDT active Glucometer eCW1 ([facility]) Lancets - Lancets - 12/07/2019 12:00:00 AM EDT act mukesh Lancets - eCW1 ([facility]) Lancets - Lancets - 12/07/2019 12:00:00 AM EDT act mukesh Lancets - eCW1 ([facility]) Lancets - Lancets - 12/07/2019 12:00:00 AM EDT act mukesh Lancets - eCW1 ([facility]) Lancets - Lancets - 12/07/2019 12:00:00 AM EDT act mukesh Lancets - eCW1 ([facility]) Lancets - Lancets - 12/07/2019 12:00:00 AM EDT act mukesh Lancets - eCW1 ([facility]) Glucometer UNK 12/07/2019 12:00:00 AM EDT active Glucometer eCW1 ([facility]) Lancets - Lancets - 12/07/2019 12:00:00 AM EDT act mukesh Lancets - eCW1 ([facility]) Glucometer UNK 12/07/2019 12:00:00 AM EDT active Glucometer eCW1 ([facility]) Lancets - Lancets - 12/07/2019 12:00:00 AM EDT act mukesh Lancets - eCW1 ([facility]) Glucometer UNK 12/07/2019 12:00:00 AM EDT active Glucometer eCW1 ([facility]) Glucometer UNK 12/07/2019 12:00:00 AM EDT active Glucometer eCW1 ([facility]) Lancets - Lancets - 12/07/2019 12:00:00 AM EDT act mukesh Lancets - eCW1 ([facility]) Lancets - Lancets - 12/07/2019 12:00:00 AM EDT act mukesh Lancets - eCW1 ([facility]) Lancets - Lancets - 12/07/2019 12:00:00 AM EDT act mukesh Lancets - eCW1 ([facility]) Lancets - Lancets - 12/07/2019 12:00:00 AM EDT act mukesh Lancets - eCW1 ([facility]) Glucometer UNK 12/07/2019 12:00:00 AM EDT active Glucometer eCW1 ([facility]) Lancets - Lancets - 12/07/2019 12:00:00 AM EDT act mukesh Lancets - eCW1 ([facility]) Glucometer UNK 12/07/2019 12:00:00 AM EDT active Glucometer eCW1 ([facility]) Glucometer UNK 12/07/2019 12:00:00 AM EDT active Glucometer eCW1 ([facility]) Glucometer UNK 12/07/2019 12:00:00 AM EDT active Glucometer eCW1 ([facility]) Lancets - Lancets - 12/07/2019 12:00:00 AM EDT act mukesh Lancets - eCW1 ([facility]) Glucometer UNK 12/07/2019 12:00:00 AM EDT active Glucometer eCW1 ([facility]) Lancets - Lancets - 12/07/2019 12:00:00 AM EDT act mukesh Lancets - eCW1 ([facility]) Glucometer UNK 12/07/2019 12:00:00 AM EDT active Glucometer eCW1 ([facility]) Lancets - Lancets - 12/07/2019 12:00:00 AM EDT act mukesh Lancets - eCW1 ([facility]) Lancets - Lancets - 12/07/2019 12:00:00 AM EDT act mukesh Lancets - eCW1 ([facility]) Glucometer UNK 12/07/2019 12:00:00 AM EDT active Glucometer eCW1 ([facility]) Glucometer UNK 12/07/2019 12:00:00 AM EDT active Glucometer eCW1 ([facility]) Lancets - Lancets - 12/07/2019 12:00:00 AM EDT act mukesh Lancets - eCW1 ([facility]) Lancets - Lancets - 12/07/2019 12:00:00 AM EDT act mukesh Lancets - eCW1 ([facility]) Lancets - Lancets - 12/07/2019 12:00:00 AM EDT act mukesh Lancets - eCW1 ([facility]) Lancets - Lancets - 12/07/2019 12:00:00 AM EDT act mukesh Lancets - eCW1 ([facility]) Glucometer UNK 12/07/2019 12:00:00 AM EDT active Glucometer eCW1 ([facility]) Lancets - Lancets - 12/07/2019 12:00:00 AM EDT act mukesh Lancets - eCW1 ([facility]) Lancets - Lancets - 12/07/2019 12:00:00 AM EDT act mukesh Lancets - eCW1 ([facility]) Lancets - Lancets - 12/07/2019 12:00:00 AM EDT act mukesh Lancets - eCW1 ([facility]) Glucometer UNK 12/07/2019 12:00:00 AM EDT active Glucometer eCW1 ([facility]) Lancets - Lancets - 12/07/2019 12:00:00 AM EDT act mukesh Lancets - eCW1 ([facility]) Lancets - Lancets - 12/07/2019 12:00:00 AM EDT act mukesh Lancets - eCW1 ([facility]) Lancets - Lancets - 12/07/2019 12:00:00 AM EDT act mukesh Lancets - eCW1 ([facility]) Lancets - Lancets - 12/07/2019 12:00:00 AM EDT act mukesh Lancets - eCW1 ([facility]) Lancets - Lancets - 12/07/2019 12:00:00 AM EDT act mukesh Lancets - eCW1 ([facility]) Lancets - Lancets - 12/07/2019 12:00:00 AM EDT act mukesh Lancets - eCW1 ([facility]) Glucometer UNK 12/07/2019 12:00:00 AM EDT active Glucometer eCW1 ([facility]) Lancets - Lancets - 12/07/2019 12:00:00 AM EDT act mukesh Lancets - eCW1 ([facility]) Glucometer UNK 12/07/2019 12:00:00 AM EDT active Glucometer eCW1 ([facility]) Glucometer UNK 12/07/2019 12:00:00 AM EDT active Glucometer eCW1 ([facility]) Glucometer UNK 12/07/2019 12:00:00 AM EDT active Glucometer eCW1 ([facility]) Glucometer UNK 12/07/2019 12:00:00 AM EDT active Glucometer eCW1 ([facility]) Glucometer UNK 12/07/2019 12:00:00 AM EDT active Glucometer eCW1 ([facility]) Glucometer UNK 12/07/2019 12:00:00 AM EDT active Glucometer eCW1 ([facility]) Glucometer UNK 12/07/2019 12:00:00 AM EDT active Glucometer eCW1 ([facility]) Lancets - Lancets - 12/07/2019 12:00:00 AM EDT act mukesh Lancets - eCW1 ([facility]) Lancets - Lancets - 12/07/2019 12:00:00 AM EDT act mukesh Lancets - eCW1 ([facility]) Glucometer UNK 12/07/2019 12:00:00 AM EDT active Glucometer eCW1 ([facility]) Glucometer UNK 12/07/2019 12:00:00 AM EDT active Glucometer eCW1 ([facility]) Glucometer UNK 12/07/2019 12:00:00 AM EDT active Glucometer eCW1 ([facility]) Glucometer UNK 12/07/2019 12:00:00 AM EDT active Glucometer eCW1 ([facility]) Lancets - Lancets - 12/07/2019 12:00:00 AM EDT act mukesh Lancets - eCW1 ([facility]) Glucometer UNK 12/07/2019 12:00:00 AM EDT active Glucometer eCW1 ([facility]) Lancets - Lancets - 12/07/2019 12:00:00 AM EDT act mukesh Lancets - eCW1 ([facility]) Glucometer UNK 12/07/2019 12:00:00 AM EDT active Glucometer eCW1 ([facility]) Glucometer UNK 12/07/2019 12:00:00 AM EDT active Glucometer eCW1 ([facility]) Lancets - Lancets - 12/07/2019 12:00:00 AM EDT act mukesh Lancets - eCW1 ([facility]) Glucometer UNK 12/07/2019 12:00:00 AM EDT active Glucometer eCW1 ([facility]) Glucometer UNK 12/07/2019 12:00:00 AM EDT active Glucometer eCW1 ([facility]) Glucometer UNK 12/07/2019 12:00:00 AM EDT active Glucometer eCW1 ([facility]) Lancets - Lancets - 12/07/2019 12:00:00 AM EDT act mukesh Lancets - eCW1 ([facility]) Glucometer UNK 12/07/2019 12:00:00 AM EDT active Glucometer eCW1 ([facility]) Glucometer UNK 12/07/2019 12:00:00 AM EDT active Glucometer eCW1 ([facility]) Glucometer UNK 12/07/2019 12:00:00 AM EDT active Glucometer eCW1 ([facility]) Glucometer UNK 12/07/2019 12:00:00 AM EDT active Glucometer eCW1 ([facility]) Lancets - Lancets - 12/07/2019 12:00:00 AM EDT act mukesh Lancets - eCW1 ([facility]) Lancets - Lancets - 12/07/2019 12:00:00 AM EDT act mukesh Lancets - eCW1 ([facility]) Lancets - Lancets - 12/07/2019 12:00:00 AM EDT act mukesh Lancets - eCW1 ([facility]) Lancets - Lancets - 12/07/2019 12:00:00 AM EDT act mukesh Lancets - eCW1 ([facility]) Lancets - Lancets - 12/07/2019 12:00:00 AM EDT act mukesh Lancets - eCW1 ([facility]) Lancets - Lancets - 12/07/2019 12:00:00 AM EDT act mukesh Lancets - eCW1 ([facility]) Glucometer UNK 12/07/2019 12:00:00 AM EDT active Glucometer eCW1 ([facility]) Lancets - Lancets - 12/07/2019 12:00:00 AM EDT act mukesh Lancets - eCW1 ([facility]) Lancets - Lancets - 12/07/2019 12:00:00 AM EDT act mukesh Lancets - eCW1 ([facility]) Glucometer UNK 12/07/2019 12:00:00 AM EDT active Glucometer eCW1 ([facility]) Glucometer UNK 12/07/2019 12:00:00 AM EDT active Glucometer eCW1 ([facility]) Lancets - Lancets - 12/07/2019 12:00:00 AM EDT act mukesh Lancets - eCW1 ([facility]) Lancets - Lancets - 12/07/2019 12:00:00 AM EDT act mukesh Lancets - eCW1 ([facility]) Lancets - Lancets - 12/07/2019 12:00:00 AM EDT act mukesh Lancets - eCW1 ([facility]) Lancets - Lancets - 12/07/2019 12:00:00 AM EDT act mukesh Lancets - eCW1 ([facility]) Lancets - Lancets - 12/07/2019 12:00:00 AM EDT act mukesh Lancets - eCW1 ([facility]) Glucometer UNK 12/07/2019 12:00:00 AM EDT active Glucometer eCW1 ([facility]) Glucometer UNK 12/07/2019 12:00:00 AM EDT active Glucometer eCW1 ([facility]) Glucometer UNK 12/07/2019 12:00:00 AM EDT active Glucometer eCW1 ([facility]) Lancets - Lancets - 12/07/2019 12:00:00 AM EDT act mukesh Lancets - eCW1 ([facility]) Lancets - Lancets - 12/07/2019 12:00:00 AM EDT act mukesh Lancets - eCW1 ([facility]) Glucometer UNK 12/07/2019 12:00:00 AM EDT active Glucometer eCW1 ([facility]) Lancets - Lancets - 12/07/2019 12:00:00 AM EDT act mukesh Lancets - eCW1 ([facility]) Lancets - Lancets - 12/07/2019 12:00:00 AM EDT act mukesh Lancets - eCW1 ([facility]) Glucometer UNK 12/07/2019 12:00:00 AM EDT active Glucometer eCW1 ([facility]) Lancets - Lancets - 12/07/2019 12:00:00 AM EDT act mukesh Lancets - eCW1 ([facility]) Glucometer UNK 12/07/2019 12:00:00 AM EDT active Glucometer eCW1 ([facility]) Lancets - Lancets - 12/07/2019 12:00:00 AM EDT act mukesh Lancets - eCW1 ([facility]) Glucometer UNK 12/07/2019 12:00:00 AM EDT active Glucometer eCW1 ([facility]) Lancets - Lancets - 12/07/2019 12:00:00 AM EDT act mukesh Lancets - eCW1 ([facility]) Glucometer UNK 12/07/2019 12:00:00 AM EDT active Glucometer eCW1 ([facility]) Glucometer UNK 12/07/2019 12:00:00 AM EDT active Glucometer eCW1 ([facility]) Glucometer UNK 12/07/2019 12:00:00 AM EDT active Glucometer eCW1 ([facility]) Glucometer UNK 12/07/2019 12:00:00 AM EDT active Glucometer eCW1 ([facility]) Glucometer UNK 12/07/2019 12:00:00 AM EDT active Glucometer eCW1 ([facility]) Glucometer UNK 12/07/2019 12:00:00 AM EDT active Glucometer eCW1 ([facility]) Glucometer UNK 12/07/2019 12:00:00 AM EDT active Glucometer eCW1 ([facility]) Glucometer UNK 12/07/2019 12:00:00 AM EDT active Glucometer eCW1 ([facility]) Glucometer UNK 12/07/2019 12:00:00 AM EDT active Glucometer eCW1 ([facility]) Lancets - Lancets - 12/07/2019 12:00:00 AM EDT act mukesh Lancets - eCW1 ([facility]) Lancets - Lancets - 12/07/2019 12:00:00 AM EDT act mukesh Lancets - eCW1 ([facility]) Glucometer UNK 12/07/2019 12:00:00 AM EDT active Glucometer eCW1 ([facility]) Glucometer UNK 12/07/2019 12:00:00 AM EDT active Glucometer eCW1 ([facility]) Lancets - Lancets - 12/07/2019 12:00:00 AM EDT act mukesh Lancets - eCW1 ([facility]) Glucometer UNK 12/07/2019 12:00:00 AM EDT active Glucometer eCW1 ([facility]) Glucometer UNK 12/07/2019 12:00:00 AM EDT active Glucometer eCW1 ([facility]) Lancets - Lancets - 12/07/2019 12:00:00 AM EDT act mukesh Lancets - eCW1 ([facility]) Lancets - Lancets - 12/07/2019 12:00:00 AM EDT act mukesh Lancets - eCW1 ([facility]) Lancets - Lancets - 12/07/2019 12:00:00 AM EDT act mukesh Lancets - eCW1 ([facility]) Lancets - Lancets - 12/07/2019 12:00:00 AM EDT act mukesh Lancets - eCW1 ([facility]) Glucometer UNK 12/07/2019 12:00:00 AM EDT active Glucometer eCW1 ([facility]) Glucometer UNK 12/07/2019 12:00:00 AM EDT active Glucometer eCW1 ([facility]) Lancets - Lancets - 12/07/2019 12:00:00 AM EDT act mukesh Lancets - eCW1 ([facility]) Glucometer UNK 12/07/2019 12:00:00 AM EDT active Glucometer eCW1 ([facility]) Lancets - Lancets - 12/07/2019 12:00:00 AM EDT act mukesh Lancets - eCW1 ([facility]) Glucometer UNK 12/07/2019 12:00:00 AM EDT active Glucometer eCW1 ([facility]) Glucometer UNK 12/07/2019 12:00:00 AM EDT active Glucometer eCW1 ([facility]) Glucometer UNK 12/07/2019 12:00:00 AM EDT active Glucometer eCW1 ([facility]) Lancets - Lancets - 12/07/2019 12:00:00 AM EDT act mukesh Lancets - eCW1 ([facility]) Lancets - Lancets - 12/07/2019 12:00:00 AM EDT act mukesh Lancets - eCW1 ([facility]) Lancets - Lancets - 12/07/2019 12:00:00 AM EDT act mukesh Lancets - eCW1 ([facility]) Lancets - Lancets - 12/07/2019 12:00:00 AM EDT act mukesh Lancets - eCW1 ([facility]) Lancets - Lancets - 12/07/2019 12:00:00 AM EDT act mukesh Lancets - eCW1 ([facility]) Lancets - Lancets - 12/07/2019 12:00:00 AM EDT act mukesh Lancets - eCW1 ([facility]) Lancets - Lancets - 12/07/2019 12:00:00 AM EDT act mukesh Lancets - eCW1 ([facility]) Glucometer UNK 12/07/2019 12:00:00 AM EDT active Glucometer eCW1 ([facility]) Lancets - Lancets - 12/07/2019 12:00:00 AM EDT act mukesh Lancets - eCW1 ([facility]) Glucometer UNK 12/07/2019 12:00:00 AM EDT active Glucometer eCW1 ([facility]) Glucometer UNK 12/07/2019 12:00:00 AM EDT active Glucometer eCW1 ([facility]) Glucometer UNK 12/07/2019 12:00:00 AM EDT active Glucometer eCW1 ([facility]) Lancets - Lancets - 12/07/2019 12:00:00 AM EDT act mukesh Lancets - eCW1 ([facility]) Lancets - Lancets - 12/07/2019 12:00:00 AM EDT act mukesh Lancets - eCW1 ([facility]) Glucometer UNK 12/07/2019 12:00:00 AM EDT active Glucometer eCW1 ([facility]) Glucometer UNK 12/07/2019 12:00:00 AM EDT active Glucometer eCW1 ([facility]) Glucometer UNK 12/07/2019 12:00:00 AM EDT active Glucometer eCW1 ([facility]) Glucometer UNK 12/07/2019 12:00:00 AM EDT active Glucometer eCW1 ([facility]) Lancets - Lancets - 12/07/2019 12:00:00 AM EDT act mukesh Lancets - eCW1 ([facility]) Glucometer UNK 12/07/2019 12:00:00 AM EDT active Glucometer eCW1 ([facility]) Glucometer UNK 12/07/2019 12:00:00 AM EDT active Glucometer eCW1 ([facility]) Acetaminophen 325 MG / Hydrocodone [place] trate 5 MG Oral Tablet Hydrocodone- Acetaminophen 5-325 MG Hydrocodone-Acetaminophen 5-325 MG 12/03/2019 12:00:00 AM EDT 1.0 {tablet_as_needed} active Hydrocodone-Acetaminophen 5-325 MG eCW1 ([facility]) Acetaminophen 325 MG / Hydrocodone [place] trate 5 MG Oral Tablet Hydrocodone- Acetaminophen 5-325 MG Hydrocodone-Acetaminophen 5-325 MG 12/03/2019 12:00:00 AM EDT 1.0 {tablet_as_needed} active Hydrocodone-Acetaminophen 5-325 MG eCW1 ([facility]) Acetaminophen 325 MG / Hydrocodone [place] trate 5 MG Oral Tablet Hydrocodone- Acetaminophen 5-325 MG Hydrocodone-Acetaminophen 5-325 MG 12/03/2019 12:00:00 AM EDT 1.0 {tablet_as_needed} active Hydrocodone-Acetaminophen 5-325 MG eCW1 ([facility]) Acetaminophen 325 MG / Hydrocodone [place] trate 5 MG Oral Tablet Hydrocodone- Acetaminophen 5-325 MG Hydrocodone-Acetaminophen 5-325 MG 12/03/2019 12:00:00 AM EDT 1.0 {tablet_as_needed} active Hydrocodone-Acetaminophen 5-325 MG eCW1 ([facility]) Acetaminophen 325 MG / Hydrocodone [place] trate 5 MG Oral Tablet Hydrocodone- Acetaminophen 5-325 MG Hydrocodone-Acetaminophen 5-325 MG 12/03/2019 12:00:00 AM EDT 1.0 {tablet_as_needed} active Hydrocodone-Acetaminophen 5-325 MG eCW1 ([facility]) Acetaminophen 325 MG / Hydrocodone [place] trate 5 MG Oral Tablet Hydrocodone- Acetaminophen 5-325 MG Hydrocodone-Acetaminophen 5-325 MG 12/03/2019 12:00:00 AM EDT 1.0 {tablet_as_needed} active Hydrocodone-Acetaminophen 5-325 MG eCW1 ([facility]) Acetaminophen 325 MG / Hydrocodone [place] trate 5 MG Oral Tablet Hydrocodone- Acetaminophen 5-325 MG Hydrocodone-Acetaminophen 5-325 MG 12/03/2019 12:00:00 AM EDT 1.0 {tablet_as_needed} active Hydrocodone-Acetaminophen 5-325 MG eCW1 ([facility]) Acetaminophen 325 MG / Hydrocodone [place] trate 5 MG Oral Tablet Hydrocodone- Acetaminophen 5-325 MG Hydrocodone-Acetaminophen 5-325 MG 12/03/2019 12:00:00 AM EDT 1.0 {tablet_as_needed} active Hydrocodone-Acetaminophen 5-325 MG eCW1 ([facility]) Acetaminophen 325 MG / Hydrocodone [place] trate 5 MG Oral Tablet Hydrocodone- Acetaminophen 5-325 MG Hydrocodone-Acetaminophen 5-325 MG 12/03/2019 12:00:00 AM EDT 1.0 {tablet_as_needed} active Hydrocodone-Acetaminophen 5-325 MG eCW1 ([facility]) Acetaminophen 325 MG / Hydrocodone [place] trate 5 MG Oral Tablet Hydrocodone- Acetaminophen 5-325 MG Hydrocodone-Acetaminophen 5-325 MG 12/03/2019 12:00:00 AM EDT 1.0 {tablet_as_needed} active Hydrocodone-Acetaminophen 5-325 MG eCW1 ([facility]) Acetaminophen 325 MG / Hydrocodone [place] trate 5 MG Oral Tablet Hydrocodone- Acetaminophen 5-325 MG Hydrocodone-Acetaminophen 5-325 MG 12/03/2019 12:00:00 AM EDT 1.0 {tablet_as_needed} active Hydrocodone-Acetaminophen 5-325 MG eCW1 ([facility]) Acetaminophen 325 MG / Hydrocodone [place] trate 5 MG Oral Tablet Hydrocodone- Acetaminophen 5-325 MG Hydrocodone-Acetaminophen 5-325 MG 12/03/2019 12:00:00 AM EDT 1.0 {tablet_as_needed} active Hydrocodone-Acetaminophen 5-325 MG eCW1 ([facility]) Acetaminophen 325 MG / Hydrocodone [place] trate 5 MG Oral Tablet Hydrocodone- Acetaminophen 5-325 MG Hydrocodone-Acetaminophen 5-325 MG 12/03/2019 12:00:00 AM EDT 1.0 {tablet_as_needed} active Hydrocodone-Acetaminophen 5-325 MG eCW1 ([facility]) Acetaminophen 325 MG / Hydrocodone [place] trate 5 MG Oral Tablet Hydrocodone- Acetaminophen 5-325 MG Hydrocodone-Acetaminophen 5-325 MG 12/03/2019 12:00:00 AM EDT 1.0 {tablet_as_needed} active Hydrocodone-Acetaminophen 5-325 MG eCW1 ([facility]) Acetaminophen 325 MG / Hydrocodone [place] trate 5 MG Oral Tablet Hydrocodone- Acetaminophen 5-325 MG Hydrocodone-Acetaminophen 5-325 MG 12/03/2019 12:00:00 AM EDT 1.0 {tablet_as_needed} active Hydrocodone-Acetaminophen 5-325 MG eCW1 ([facility]) Acetaminophen 325 MG / Hydrocodone [place] trate 5 MG Oral Tablet Hydrocodone- Acetaminophen 5-325 MG Hydrocodone-Acetaminophen 5-325 MG 12/03/2019 12:00:00 AM EDT 1.0 {tablet_as_needed} active Hydrocodone-Acetaminophen 5-325 MG eCW1 ([facility]) Acetaminophen 325 MG / Hydrocodone [place] trate 5 MG Oral Tablet Hydrocodone- Acetaminophen 5-325 MG Hydrocodone-Acetaminophen 5-325 MG 12/03/2019 12:00:00 AM EDT 1.0 {tablet_as_needed} active Hydrocodone-Acetaminophen 5-325 MG eCW1 ([facility]) Acetaminophen 325 MG / Hydrocodone [place] trate 5 MG Oral Tablet Hydrocodone- Acetaminophen 5-325 MG Hydrocodone-Acetaminophen 5-325 MG 12/03/2019 12:00:00 AM EDT 1.0 {tablet_as_needed} active Hydrocodone-Acetaminophen 5-325 MG eCW1 ([facility]) Acetaminophen 325 MG / Hydrocodone [place] trate 5 MG Oral Tablet Hydrocodone- Acetaminophen 5-325 MG Hydrocodone-Acetaminophen 5-325 MG 12/03/2019 12:00:00 AM EDT 1.0 {tablet_as_needed} active Hydrocodone-Acetaminophen 5-325 MG eCW1 ([facility]) Acetaminophen 325 MG / Hydrocodone [place] trate 5 MG Oral Tablet Hydrocodone- Acetaminophen 5-325 MG Hydrocodone-Acetaminophen 5-325 MG 12/03/2019 12:00:00 AM EDT 1.0 {tablet_as_needed} active Hydrocodone-Acetaminophen 5-325 MG eCW1 ([facility]) Acetaminophen 325 MG / Hydrocodone [place] trate 5 MG Oral Tablet Hydrocodone- Acetaminophen 5-325 MG Hydrocodone-Acetaminophen 5-325 MG 12/03/2019 12:00:00 AM EDT 1.0 {tablet_as_needed} active Hydrocodone-Acetaminophen 5-325 MG eCW1 ([facility]) Acetaminophen 325 MG / Hydrocodone Brielle trate 5 MG Oral Tablet Hydrocodone- Acetaminophen 5-325 MG Hydrocodone-Acetaminophen 5-325 MG 12/03/2019 12:00:00 AM EDT 1.0 {tablet_as_needed} active Hydrocodone-Acetaminophen 5-325 MG eCW1 ([facility]) Acetaminophen 325 MG / Hydrocodone Brielle trate 5 MG Oral Tablet Hydrocodone- Acetaminophen 5-325 MG Hydrocodone-Acetaminophen 5-325 MG 12/03/2019 12:00:00 AM EDT 1.0 {tablet_as_needed} active Hydrocodone-Acetaminophen 5-325 MG eCW1 ([facility]) Acetaminophen 325 MG / Hydrocodone Brielle trate 5 MG Oral Tablet Hydrocodone- Acetaminophen 5-325 MG Hydrocodone-Acetaminophen 5-325 MG 12/03/2019 12:00:00 AM EDT 1.0 {tablet_as_needed} active Hydrocodone-Acetaminophen 5-325 MG eCW1 ([facility]) Acetaminophen 325 MG / Hydrocodone Brielle trate 5 MG Oral Tablet Hydrocodone- Acetaminophen 5-325 MG Hydrocodone-Acetaminophen 5-325 MG 12/03/2019 12:00:00 AM EDT 1.0 {tablet_as_needed} active Hydrocodone-Acetaminophen 5-325 MG eCW1 ([facility]) Acetaminophen 325 MG / Hydrocodone Brielle trate 5 MG Oral Tablet Hydrocodone- Acetaminophen 5-325 MG Hydrocodone-Acetaminophen 5-325 MG 12/03/2019 12:00:00 AM EDT 1.0 {tablet_as_needed} active Hydrocodone-Acetaminophen 5-325 MG eCW1 ([facility]) Acetaminophen 325 MG / Hydrocodone Brielle trate 5 MG Oral Tablet Hydrocodone- Acetaminophen 5-325 MG Hydrocodone-Acetaminophen 5-325 MG 12/03/2019 12:00:00 AM EDT 1.0 {tablet_as_needed} active Hydrocodone-Acetaminophen 5-325 MG eCW1 ([facility]) gabapentin 100 MG Oral Capsule gabapentin (NEURONTIN) 100 MG capsule gabapentin (NEURONTIN) 100 MG capsule 11/19/2019 12:00:00 AM EDT 100 mg Oral active Take 100 mg by mouth 2 (two) times a day [facility] potassium chloride SA (K-DUR,KLOR-CON) 10 MEQ tablet 24318-5 11-2511/19/2019 12:00:00 AM EDT 10 meq Oral aborted Take 10 mEq by mouth 2 (two) times a day [facility] torsemide 20 MG Oral Tablet torsemide (DEMADEX) 20 MG tablet torsemide (DEMADEX) 20 MG tablet 11/19/2019 12:00:00 AM EDT 20 mg abor alfred 20 mg 3 (three) times a day [facility] dapagliflozin 5 MG Oral Tablet [Farxiga] FARXIGA 5 MG TABS F ARXIGA 5 MG TABS 11/10/2019 12:00:00 AM EDT aborted [facility] 24 HR Metformin hydrochloride 500 MG Ext ended Release Oral Tablet metFORMIN (GLUCOPHATE-XR) 500 MG 24 hr tablet metFORMIN (GLUCOPHATE-XR) 500 MG 24 hr tablet 11/02/2019 12:00:00 AM EDT aborted [facility] carvedilol 3.125 MG Oral Tablet carvedilol (COREG) 3.1 25 MG tablet carvedilol (COREG) 3.125 MG tablet 09/23/2019 12:00:00 AM EDT 3.125 mg Oral aborted Coronary artery disease due to calcified coronary lesion Take 1 tablet (3.125 mg total) by mouth 2 (two) times a day [facility] Coronary artery disease due to calcified coronary lesion Nystatin 717844 UNT/ML Oral Suspension n ystatin (MYCOSTATIN) 053474 UNIT/ML suspension nystatin (MYCOSTATIN) 988542 UNIT/ML suspension 2019 12:00:00 AM EDT aborted [facility] Losartan Potassium 100 MG Oral Tablet losartan (COZAAR ) 100 MG tablet losartan (COZAAR) 100 MG tablet 12/10/2018 12:00:00 AM EDT 0.75 {tbl} Oral aborted Take 0.75 tablets by mouth once daily [facility] dapagliflozin 10 MG Oral Tablet [Farxiga] FARXIGA 10 MG TABS FARXIGA 10 MG TABS 10/31/2018 12:00:00 AM EDT 0.5 {tbl} Oral aborted Take 0.5 tablets by mouth once daily [facility] Furosemide 20 MG Oral Tablet furosemide (LASIX) 20 MG tablet furosemide (LASIX) 20 MG tablet 06/04/2018 12:00:00 AM EDT 1 {tbl} Oral abor alfred Take 1 tablet by mouth once daily [facility] 3 ML Insulin Glargine 100 UNT/ML Pen Inj jennifer Insulin Glargine (LANTUS SOLOSTAR) 100 UNIT/ML SOPN Insulin Glargine (LANTUS SOLOSTAR) 100 UNIT/ML SOPN 12:00:00 AM EDT 25 U Subcutaneous aborted Inject 25 Units under the skin daily [facility] Buchtel-3 Acid Ethyl Esters (SNF) 1000 MG Oral Capsule omega-3 acid ethyl esters (LOVAZA) 1 g capsule omega-3 acid ethyl esters (LOVAZA) 1 g capsule 011 12:00:00 AM EDT Oral aborted Take by mouth [facility] Insurance Providers Payer name Policy type / Coverage type Policy ID Covered libertarian ID Covered libertarian's relationship to kathleen Policy Kathleen Plan Information [employer] [place] [id number] 2 [id number] [place] [id number] 2 [id number] [place] [id number] 2 [id number] [facility] Medigap Part B [id number] Self MEDICAID [id number] SP [id number] Medicaid [place] Medigap Part B [id number] Self [facility] U [id number] Self [id number] [facility] [id number] SP [id number] [facility] [id number] SP [id number] MEDICARE BLUE PPO 306 [id number] SP [id number] MEDICARE COMPLETE [id number] SP [id number] Blue Shield [facility] Advantage Medigap Part B [id number] Self MEDICARE COMPLETE [id number] SP [id number] MEDICARE COMPLETE [id number] SP [id number] [facility] COMMUNITY PLAN [facility] [id number] SP [id number] MEDICARE [id number] [place] [id number] EXCELLUS MEDICARE BLUE PPO G [id number] Self [id number] [facility] ([facility]) Commercial [id number] Self Medicare S [id number] S [id number] A Managed Care - Community Plan [facility] P [id number] S [id number] United[employer]care [employer]iz[employer] P [id number] S [id number] Medicare S [id number] S [id number] A [employer] P [id number] S [id number] MEDICARE COMPLETE [id number] SP [id number] MEDICARE COMPLETE [id number] SP [id number] [employer] Commercial [id number] .[id number] 9.3598.82226.0 Self [id number] TOD[employer] OPTIONS [id number] SP [id number] [employer] Commercial [id number] .1.853995.3.227.99.991.9 0701.0 Self [id number] [facility] Options Medigap Part B [id number] .1.67[id number] Self 3 [id number] [employer] Commercial [id number] .1.272432.3.227.99.991.9 0701.0 Self [id number] [employer] Commercial [id number] .1.820232.3.227.99.991.9 0701.0 Self [id number] [facility] Options Medigap Part B [id number] .1.928023.3.227.99.991.06458.0 Self 3 [id number] [employer] Commercial [id number] 2.16.840.1.370334.3.227.99.991.9 0701.0 Self [id number] [facility] Options [facility] Part B [id number] 2.16.840.1.034885.3.227.99.991.13481.0 Self 3 [id number] [employer] Commercial [id number] 2.16.840.1.919410.3.227.99.991.9 0701.0 Self [id number] [employer] Commercial [id number] 2.16.840.1.940175.3.227.99.991.9 0701.0 Self [id number] [employer] Commercial [id number] 2.16.840.1.926662.3.227.99.991.9 0701.0 Self [id number] [facility] [id number] 2.16.840.1.367489.3.227.99.991.74434.0 Self 3 [id number] [facility] [id number] [place] [id number] 2 [employer] [id number] SP [id number] [employer] Commercial [id number] MRN.[id number] Self [id number] [employer] Commercial [id number] 2.16.840.1.331427.3.227.99.991.43190.0 Self [id number] HU[employer]NA MEDICARE [id number] [place] [id number] HUMANA MEDICARE [id number] [place] [id number] HUMANA MEDICARE [id number] [place] [id number] HUMANA MEDICARE [id number] xxxxxxxxx [phone] HUMANA MEDICARE [id number] [place] [id number] AETNA MEDICARE Medicare [id number] AETNA MEDICARE [id number] [place] 10 [id number] ANSI-Not a Secondary Insurance [id number] ANSI-Commercial 9685de4h-qqb1-8l98-c5w4-7o474b86g4a3 0047pd1k-nxx7-9v53-w4l8-7l192q37n1l6 ANSI-Commercial 7702fpb7-gfoy-86ry-94k8-477nz4593ld1 2515kjs2-yhzi-91qp-20n2-253fa9307lr2 [employer] Gold/Medicare Commercial [id number] MRN.[id number] Self [id number] ANSI-Commercial qz2v7550-62n0-47m2-36c3-1un829u4j90l jm2h3966-13d9-22x9-18n1-4yr153k4s63l ANSI-Medicare Part B [id number]-64k5-xww5-riqhbfzs7810 v9v1k859-1hvp-92v9-clx0-soawmhdr8658 ANSI-Not a Secondary Insurance [id number] [id number]-ov99-6648-7899-584cgm1h25v4 ANSI-Health Maintenance Organization ([facility] O) 20g841tb-1w92-54pd-037v-6362h380a83h 22p907zl-8a04-94rc-420m-7450s219d89t ANSI-Medicare Part B 41c72q69-d26n-557p-l22w-pg11316ar975 52t06w31-o78v-063d-j21l-pz16712lr419 ANSI-Commercial 052643h2-7862-7401-b8g1-1ixhk39w2304 983974f5-0662-5674-f2o3-8omwy34h2741 ANSI-Medicare Part B 7es1xgdp-vh1p-4e31-69q6-2db4u30628e3 5vh9ylwt-mz7p-9x92-74e0-2di1v08102v2 ANSI-Medicare Part B 3s8514m8-744e-6s4l-tz06-2rj9i6213v76 7z2798u3-422d-8n8v-nu43-0ot5f6196l43 ANSI-Health Maintenance Organization ( O) st94f4ob-350a-8512-h072-2zp00fyb0n79 hb38g0ci-713q-0357-b915-9ym63fuo4z62 ANSI-Commercial 324dr072-218p-2c95-6721-463l0c020750 037fz560-194e-6p56-3763-077e2z848069 [facility]-Health Maintenance Organization ( O) 72way2j6-24p2-9l77-04j8-g3b72o3po051 54rxa5w8-61a2-2z11-31d8-g2y28j7qv638 ANSI-Medicare Part B 3e68e096-l887-6901-ym17-eb0icdy4w5z9 5n37m978-d326-4749-ao00-rv1zlyy6c9g4 ANSI-Medicare Part B 2l8hc801-ga8u-9jym-7717-3ua538468288 9i2qp948-gd6w-0ypp-1663-0ay943748158 ANSI-Medicare Part B 534cog83-421n-71z9-g295-7w96916j9w6s 233vjm93-951m-25o1-f038-5t72039e9x0j ANSI-Commercial 281an93k-2483-9807-17du-3645141u4381 785ap66n-5779-0158-66av-0267740t2155 [facility] w9398961-7974-55u6-b1bg-asn98wv39086 p0317798-1773-49p0-s7mj-srv59zi05404 ANSI-Medicare Part B 8p3831c7-2yz0-9058-i06r-899se4l3pl9g 4j2456p0-5at4-0568-e76f-813di0i8kn4c ANSI-Commercial 70p5335h-dedp-2874-q00t-78014dh365t6 66m3554g-aoqm-8033-k23s-75486qt798z1 ANSI-Medicare Part B 5zn68r30-201o-627l-2sr7-303r57080lr6 6iv79p21-276d-388v-5ro5-286k10520vu0 ANSI-Health Maintenance Organization ( O) 50174y52-v115-3exz-v51c-0t86nitd4498 88515o53-l373-1usl-l34h-2w77usie9983 ANSI-Medicare Part B 57hczos6-h6s3-41y3-83je-ehc319q6r8g5 71nohao3-e6i5-75s8-47dk-mfb965e0v0q7 ANSI-Commercial pb2w2l7v-ke32-3636-65nh-hzw4o3842260 by9d5c4c-jo16-3126-45yv-ecx2r5011115 ANSI-Medicare Part B l285m6y4-5242-4nq4-97ly-0hc8x9494jq0 k779s7p2-8304-9ve8-69wo-7tb9a3061dg3 [facility] ( O) 918970c6-n80b-3t10-v4i5-324s32706q29 250386c2-f22n-2s59-h2e7-216v29388v43 ANSI-Medicare Part B x49t89ey-4q01-7858-36il-3ktc2dmgf278 v12j42go-6v36-2748-37aa-5ace9wqia674 ANSI-Medicare Part B 09q0571i-2c6d-78or-64u8-9vhi20x2qlau 11d6085m-8r7h-51hh-03p0-8khf70n7bmgi [facility] ( O) 3f4k2173-6x3g-9t74-5q63-556y052407u4 9g9u0826-1x6s-1i39-3m36-629k106903w4 ANSI-Medicare Part B kw40167w-2529-99de-3my5-8tuv82w80449 mp63141y-7120-78ii-6vn1-8mkr37v35604 ANSI-Commercial 5il28i54-magh-1h66-5658-63uk2629xrup 7be08i36-fxib-1j18-5071-92xe6010hlsu ANSI-Health Maintenance Organization ( O) rj85811e-36m2-019l-p936-3f9o28fbhv37 re60668y-73q7-761x-w958-5g5f98cnzq03 ANSI-Medicare Part B 49n8021l-i5bu-6ya1-9q64-9tq148a29j88 87n5016j-o5fq-7jt9-7m47-2du121b39w34 ANSI-Medicare Part B 85qhy562-31u7-1k6b-0515-309s45n7s320 74fce532-79d1-6g7a-3087-315f72z1c320 ANSI-Commercial 95c262u5-51k3-0u2m-z440-0v362808d777 12a199e4-97a0-7s2q-q830-0x618109e741 ANSI-Medicare Part B a05h824v-83io-023u-8w08-a6m9a6q9173i l55r639r-99ye-607u-5r32-a4o5e5k3708w ANSI-Medicare Part B 82qfg2rb-8191-0462-y4b5-ksh90g8pr9h6 64acc3ht-8721-1790-z0l8-umo38w8gf0j7 ANSI-Commercial jw347prs-07c4-38w5-sj59-xj6l9rd79m63 fb582gpz-95z8-63e1-pn92-zf6t6yw10y44 ANSI-Health Maintenance Organization ( O) 580376bp-3m2s-25d1-hm16-61735a887775 217203zw-9u9n-31k3-nx68-75465x926059 [employer] Commercial [id number] 2.16.840.1.757828.3.227.99.8646.19592.0 Self [id number] [employer] [id number] 1011 ANSI-Medicare Part B 14966zi1-c684-8u6p-d685-9v0065r91442 15295xr0-r763-5m5l-v197-0t1437f22195 ANSI-Commercial o7d0y488-hpkl-2329-t5wu-lr3m3hq7a846 p5o4g408-cjlo-3984-c9nw-eg0f0cj5p588 ANSI-Medicare Part B 57ul0fx9-3ry3-0dye-b9zv-uuuf6eh0c627 35er8oa0-3wh6-9cdv-q7wx-gpzd8vp0u000 ANSI-Health Maintenance Organization ( O) 49586f92-1d06-0e59-6h9x-1019oiqoz064 94866b71-9f25-3s94-0l7g-6770vkxrw504 ANSI-Medicare Part B 052l6348-9r73-4469-71si-fo9l5307756q 158l5397-9f46-4414-58wp-eu9q7746365r ANSI-Health Maintenance Organization ( O) 1s1z2716-a546-873o-o554-8yy8364nosav 6e8x9174-o682-421h-o149-7ly2526jajqd ANSI-Commercial 4i053s27-7292-29ly-95w9-hl69xktl0r70 9e951s13-8725-39tw-77w1-es09oohv2x79 ANSI-Medicare Part B r5xn5442-20n4-6a76-529o-91j756jxx1g9 t7vf0414-58r1-7q10-042k-34j721hte1b4 ANSI-Medicare Part B 16675o48-35y2-3kzu-v42s-4ciwg2511uwh 38877p96-76i9-7hej-o99q-3jckq4490imh [facility] ( O) 30t45x5u-425z-85e8-2310-8x6d9731kh51 58c33t3u-781p-43e1-7526-5p2t6592ol21 ANSI-Medicare Part B 584o325n-58q8-5py6-rwl4-200x540f375s 094a502f-76p5-0sv2-pcg3-274v638g126v ANSI-Commercial b7436w95-049r-5h2y-mr00-w6d28264est5 p5384k43-932c-2a5d-va94-n2r22426nxu3 ANSI-Medicare Part B 661r0tcw-j1px-3706-396n-tq1i707t2lna 264w9lpp-g8vo-2294-444q-gl8y498c4gzh [facility] ( O) fw5q6ru1-wm50-3e24-c3b1-x1180l36n1v7 oy7s5ta1-ux82-4f87-u0u0-t5926n88i2e8 [facility] 5qs9akr9-nx84-1b64-m46j-le7r6y19uhse 0ia9hmd6-rc66-7c14-n52a-ib4x1d66oecu ANSI-Commercial 32ud3t4n-1x4y-8677-iw39-113g8z00y271 82wx5n6f-2i2q-9232-vx18-216x9d88v591 ANSI-Medicare Part B 13c9521o-0783-4nt3-717v-49q05yr6z036 41j8007s-1020-8pm4-208r-96e52ls3g321 ANSI-Commercial 51k1k55y-d57h-7egc-77d8-3858o4123ztq 52j1q63a-l85o-4pga-28p8-8112r4132tif ANSI-Medicare Part B 26420h42-o895-73pu-qt42-4su83m2g9198 14527h04-p676-02ae-un19-2br13l7y9604 [facility]-Health Maintenance Organization ( O) hd2wvj29-85bg-6e95-t5iw-f6ax8n97f9re ca5zgm81-30be-9m37-r4kz-i3ao4m16l1lv ANSI-Commercial 1uf24pc3-1994-93a5-3b40-g2n4t7q07u9n 9or95bp4-1267-04s8-8r00-n9i0p0r27m5w ANSI-Medicare Part B w510zd0b-0556-6i18-5083-ul2s1s7iyo5r o944sq9i-5615-7f47-8161-lf4q2j3otu7z [facility]-Health Maintenance Organization ( O) 54j52jz3-4529-02u4-u1kr-o05u42478r93 46c09yl0-1218-33z6-s4jr-o94d64371b93 ANSI-Medicare Part B 94z776pz-0lm3-8136-585a-1v315s5xn1p3 93t904xs-7jv9-8663-021t-9t117n5eq3d8 [employer] [facility] Commercial [id number] 2.16.840.1.510378.3.227.99.8646.34836.0 [facility] [id number] ANSI-Medicare Part B 1d9tjha4-xy57-49la-5541-s90qnr89f3c1 0r2gzky9-sr40-13hw-3405-u37jun08h7y5 [facility] Maintenance Organization ( O) 61j655vz-h0h2-53ec-r87e-y7wxa98m012u 52p760li-c9k0-70qi-s45l-m9mev92d429h ANSI-Medicare Part B 3cf33358-2x8y-8409-31r0-6046lwo0mi0o 6yh86701-1v1r-9569-13n2-2341jys9tn4f ANSI-Commercial 50al5680-0774-507a-6xc8-g7636nwg7q67 57xj9912-0234-113a-3hk6-l2528mbc9h11 ANSI-Medicare Part B y447c6as-i267-1hk4-5951-517777042v8h t897s5hk-y068-9ky0-3856-575939635b1p ANSI-Medicare Part B 40674298-7o78-9177-4322-2079he41kh0t 43423690-4r17-2543-6278-4619qh16gx9v ANSI-Commercial 457gv8c6-13k7-1g9w-0y55-7qn297e33s0t 088hh6h8-63e1-0c7h-0h53-4ao585p37c2r ANSI-Health Maintenance Organization ( O) 5663fx74-q5k1-0641-98h5-ez334q3x1050 7089qn80-c1g4-3126-58i4-pm425i4l1763 ANSI-Health Maintenance Organization ( O) i970v79g-3064-508w-8707-zh6j63541bxh n143i80u-1837-390r-9798-ju2q68657sor ANSI-Commercial o92i0454-7189-30ky-d331-318lv88p26d9 v63q8472-3972-87bo-y144-313so60r63x0 ANSI-Medicare Part B 653i660b-t03i-690z-7mu9-d0q36t9zfkj1 626q609g-j75a-735q-9ic9-q2q67w4rumo4 ANSI-Medicare Part B 231ya99b-a82p-5p35-i64i-a79851ha5wh3 266nn43g-w90k-2f15-i04h-w84999ps6ja0 [employer] Commercial [id number] 2.16.840.1.058160.3.227.99.991.6 9568.0 Self [id number] [facility] O [id number] S [id number] ANSI-Health Maintenance Organization ( O) 65886003-06d8-8h0n-960z-i7y19320nla6 66593685-77m0-9x2s-516d-k7i95316jrv7 ANSI-Commercial f6j3972i-4w2k-9864-c8fz-0fu1151g4ny2 x4u9737n-3e3b-4376-b6je-4hx1467u5bn7 ANSI-Medicare Part B w2rz815l-r188-243a-14n8-57va18947q94 l2ip513a-z468-896q-37c9-12hm00404d47 ANSI-Medicare Part B 9f9l66lu-i2j0-7v00-b08l-l7jsbw32gz8i 4p0n18ls-d5r7-1r65-o75t-v6utnc60dr3k ANSI-Commercial 870h86cq-8sh9-937b-8061-23i9427hv04h 476i99dw-8nb3-603q-5540-98q2852tt51m ANSI-Medicare Part B xk38791r-s6gp-046t-c036-005b16pn2d2j os11686i-d5jf-166e-w493-943m82na4j4s ANSI-Medicare Part B 396m7b76-083o-5ybc-4xf7-8y25lkfte3bl 894v3r07-468l-9tkn-7ps5-2x06ulssp5il ANSI-Health Maintenance Organization ( O) m6c5009k-3spc-6p82-r31m-42799u59495p y8m1931n-8vje-1m37-l50u-96259r38188y ANSI-Medicare Part B c8555556-amkt-2634-342t-8vjk34041520 d1124341-pute-2269-049m-5bas90814561 ANSI-Commercial 718089r9-692s-0495-et1n-86723t3a69aj 671167c7-730f-0177-hr9k-59246x5w58sw ANS-Health Maintenance Organization ( O) 679o8244-9858-6r83-j5d0-xqf6c524270r 954s4347-2398-1k82-h6v9-eue8i716101h ANSI-Medicare Part B 716g923a-z207-644o-d529-rj7149k3560i 519p458y-d430-711m-a277-vf6512s1175n ANSI-Medicare Part B n31p8j95-c035-89r3-jp0y-4595377w9y0z a40r0w51-g661-23e5-sj3l-3964946s6u8h ANSI-Medicare Part B 0441gg1z-767e-5x88-4me6-5s658374i9k4 6119hx2t-072h-4x05-6fy7-6n236111y9y8 ANSI-Commercial 06w63974-q4ob-4933-2000-yil0757218m5 99s95355-z7fn-7630-2862-cql1342415a3 ANSI-Medicare Part B 6z5a3go3-u63r-74l9-7r0y-53l52m8xw0l5 6h1f2pn9-c55n-70g1-1v9v-44x41e0ll7a8 ANSI-Medicare Part B u41qvnc6-ufrr-751x-v83k-5n22501d7f7w o62yhrf6-ppwa-726h-r85r-0t74777p7n0o ANSI-Commercial 05ghvi3b-72l1-01rz-w446-d8w437644480 72bsqw8m-35b8-31mk-h854-m1g702356695 ANSI-Medicare Part B 5ae19jnm-0eg3-78hf-e5e2-32glki07pb27 0ll84vol-5jd2-49ph-p1h9-72zium89qr37 ANSI-Medicare Part B a99z1852-i611-3q1b-dl67-j3309524zeum p71a6859-c825-9e2l-pz52-i6999738ddaw ANSI-Commercial oln4x7ga-510l-8g15-6b25-s56x4794jmw6 oum0i9yo-777w-0c85-8n31-o40h1954bnt3 ANSI-Commercial 5cov7597-g14d-4998-622b-ztj0dv7i3359 4iyi8297-z48f-7613-285k-zvs8vn9y6730 ANSI-Medicare Part B 8n37tmmp-7432-99bp-0vu4-v04i45cp311z 1m52ntci-7473-19yx-8ir5-c47n05hl289i ANSI-Medicare Part B 1499jg7t-0t96-0c39-6h52-77391t9i07od 9397vb7k-8s55-6w08-6x35-23453g0a86zd ANSI-Medicare Part B 7ddd8ol5-1j8f-5428-69a8-gn8k0z6y6115 3wwb9wt8-7x2i-2932-39x3-ky6q3e8i5212 ANSI-Commercial d7c00q84-0e6e-72i3-4170-4i1b2116555k y6c05a43-3p5g-91q7-3593-0v8z5467622z ANSI-Medicare Part B 2g1o0ji1-5271-39a4-xof0-328t680b0x6i 3a4y0jp6-9810-77h4-eso0-213z953s9b9t [facility] OPTIONS/KENYAN O [id number] S [id number] ANSI-Medicare Part B 6225bv9b-2674-709t-oz40-6663l3987e74 7445tl7k-1905-252p-cp71-5351x0393r84 ANSI-Medicare Part B 6r5a3619-2462-1179-5na8-148k34343024 6u7l4101-4932-4702-4kc3-472j60958652 ANSI-Commercial 6afqd8a9-9cdu-4q8h-u652-h47u72f8r3zv 7wrna8l2-0wen-6m6e-f165-i56v84t6l4ii ANSI-Medicare Part B 67s1fj7o-8xem-5887-jui1-nwcez07h39jw 41p0mc9t-6fqr-9897-urf6-xgnot36r67iy ANSI-Commercial hm184123-9b2b-714i-025w-l9i8789d79c6 dy373443-4d1u-807l-723y-y0z5568q37q4 ANSI-Medicare Part B 7o48gq6l-iez6-302c-q18a-4fc1d2lz546y 0y11xn9j-xdz0-819f-a46z-5ad3x2ig929z ANSI-Medicare Part B 07g20c87-5q7l-754f-v540-h181a52a5708 95i42q82-7p3g-445d-o572-a964t79r6977 ANSI-Commercial 8534ua63-6vm1-2t3w-436q-16q343k56xs8 5616mz20-7lc4-9f0b-132l-21g516z42cd8 ANSI-Medicare Part B f1g93j9t-o4tw-8r22-iy87-485hc8b45zw0 a9e95p7i-h6yv-2b32-vh35-498il4y69yy1 ANSI-Commercial 7154hch6-d1pi-3ko3-v7o4-pqhk57s47000 2786che4-j3mj-6yo4-c3i5-nkhq98k55800 ANSI-Medicare Part B d1f976q6-63l5-2935-4407-9882369205g6 k1t401n1-17m6-2106-8130-0930659418v7 ANSI-Medicare Part B 82j8c825-86da-032m-4lj0-t161709iab9h 23i1i310-85nx-851j-3ov0-i053498ddm0r ANSI-Medicare Part B 767c70ag-0ket-21o9-856h-43190y871zp6 775l81ym-9dmg-40m9-863z-49735s666fn1 ANSI-Commercial 8g3935u7-6864-82xe-h905-c4hux177827v 8s2146b4-0133-28kn-y502-x8fyo271287e ANSI-Medicare Part B 0135sg06-5s15-3v88-0g4q-2285r5481709 1887cc77-6m16-9s39-7d3d-0212j1899024 ANSI-Medicare Part B 6s928150-1h6u-00b4-3351-84257lqe51j9 9o890883-5h1p-30v3-5051-70891sle94b9 ANSI-Medicare Part B 720c1m0z-9934-8088-v652-99it0q419g8c 781k7q1h-3097-3151-q787-61dc8e528j2m ANSI-Commercial t95tn9v6-45f8-3ttm-d8k8-011ft191bbfr q52gk8z9-43a9-1cdc-t2q3-536cg932qrrh ANSI-Medicare Part B 85fu47fr-w43w-422s-r6k7-sc61f7x5nr29 53rj62ln-j45n-889l-d7o9-sj49x8f7aw48 ANSI-Medicare Part B 29y2y0x5-s1ls-81tg-5s28-0i4970r761kn 39s7o5m9-v2ro-53jd-9d59-4m4157d973bm ANSI-Commercial 3wq713l6-q36a-49g0-8jrj-y42cd6247c22 6bn448a0-t35m-27z8-3wiz-x34xa8906e37 ANSI-Commercial 55944ufk-8h9d-2r9f-6128-9d96g96p5212 52918tag-0p5a-7r4i-0108-5n04y98y8903 ANSI-Medicare Part B 9jg95487-87rv-41c1-g9q0-j67218758e38 8us63078-02ci-65b8-v6m1-j45298169v03 ANSI-Medicare Part B g3rr783u-7a98-182g-57f0-2709b5m779r2 c4pj638k-0p39-594l-27n2-4917v3o821f2 ANSI-Medicare Part B o48yu42i-11u2-0t8b-ze07-866k23516qvp n73xl88p-63u6-7c1p-rh30-897m10280zam ANSI-Medicare Part B 33z37816-nu6s-0652-o93k-7509w9226y74 85q79832-xw2a-2307-d91u-5367w3322t57 ANSI-Commercial n9339118-f66x-0524-3ucb-5r3s01rm7236 k0714797-f53d-6994-8pka-4m9f22nw8899 ANSI-Commercial pb6s8x33-wos7-7pjf-e351-t73332u35134 mk1d1z60-sry5-2stc-r553-p08715y00561 ANSI-Medicare Part B 0nx8c824-62bo-16w4-974w-2y011ky8lh35 5rs7s884-41ac-09r6-518n-0i907yp6lc20 ANSI-Medicare Part B 6yv4st18-1tj5-4661-3458-exjt35e66o5r 1nl8kf92-0mj2-2417-3849-aztb90l16w1k ANSI-Medicare Part B 191l610q-299g-448n-321y-492a505q9qr2 271g859s-069q-666p-503e-804h210p3um8 ANSI-Commercial w8s41791-68qz-0r1w-5532-41y5075s36jv d4y08151-23jz-0e4u-3768-72k6447y39bn ANSI-Medicare Part B l80d1m75-2875-01x5-38l2-7t9q3000c533 x18h8a03-7492-55f6-11m3-4x8d1564b828 ANSI-Medicare Part B 8833g779-t327-2po1-x514-13smk653rnj0 4632u665-w666-8ht4-l387-53okr645pyv3 ANSI-Commercial 4hc1ilil-5i36-44q3-p05t-a9p0atu201r2 3iu4sgfk-0f62-85p0-i71y-i5w7wxt013d9 ANSI-Medicare Part B 4l778oqm-kc7d-761o-v0dc-950344f0m65q 0i066kco-fa0t-685a-b7pz-642919d3r15b ANSI-Medicare Part B sq370635-691d-28o3-z7g3-92f1l472yyd2 eh545156-140o-78p7-k9g3-71z0a543rdy1 ANSI-Medicare Part B 208l8036-6837-7927-u0h8-h3pdauigc75c 122f7314-1421-8734-g0y9-r4uvwtxfk45t ANSI-Commercial 7ac3z1ci-m0g4-1l57-liem-o5q4vsy31q24 4zh0s4ev-u1h3-8d23-lswx-f3k8ujr00t83 ANSI-Medicare Part B 467e452k-w44q-2i1k-c5ud-79bm56218u1k 969g713o-y65j-6r1a-a0qg-18wx02033m7u ANSI-Medicare Part B 458q0jh2-4w9x-9ny6-3118-d7v344y0h965 758g2bd4-8u6h-1xb9-2603-m2p998l9j482 ANSI-Commercial v032524x-59c1-980i-c9n9-70p06k87ih41 q818652t-86c6-056w-d5k2-58x05l29fp95 ANSI-Medicare Part B f2376515-nb74-4l7d-4aa6-d9pj4393c203 i2014261-kk79-7u2x-0zm5-k6xd1429r693 ANSI-Commercial y165hg9x-no5u-15j5-4x6q-542s39m656i8 o369aq9c-go8f-05n3-2f8i-670k52g981z1 ANSI-Medicare Part B gkr821wp-6d2w-01nu-y292-00006klz105z xhp662im-3e3v-97ml-x166-36847dze077s ANSI-Medicare Part B b84il872-sazw-2yc1-x9wl-7p1p203f4817 j57hn310-lmih-1zv6-j7ix-0e2l595a3646 ANSI-Medicare Part B 30mmx30h-n6ax-5758-qi83-54866wpvum36 03nrs79r-y0hn-0720-se43-94955udvks19 ANSI-Commercial 713433t0-p284-7774-y185-4g9on612t7l8 189806y3-l913-5823-y220-6g2ss599q4c2 ANSI-Medicare Part B 8wjr484q-060t-16qo-1176-71v20q41m26a 8bef313k-336l-84sp-1404-31y28g52f14d ANSI-Commercial f2m60v69-7593-034r-as6h-y967540s2z4u f3l20j47-0431-536j-qt2z-k964025d6z0x ANSI-Medicare Part B lgmm1m61-w8gd-03m6-jwla-59wjrrrnjto1 hirr7z43-e3zf-23x7-wmjk-75zdxckuzzr8 ANSI-Medicare Part B h65m77he-08rz-16s0-403y-l5901q551z60 o46a20pz-00ws-55i9-340r-o4701w969l89 ANSI-Commercial dpw9q6e6-8n3f-34x5-v09l-9pwqt8l06372 gts9k4c1-0h4z-75p1-q91x-4fxmx3e16110 ANSI-Medicare Part B g9yu72v7-73y9-85uo-8q11-80423eoq1755 e8xk10w9-40f9-16co-3d92-21693zsu6239 ANSI-Commercial q97245b1-069c-5477-g952-975318452730 p53606v2-060u-2018-b276-012648903814 ANSI-Medicare Part B w2om4lpl-4573-7s93-9404-3l91g2g4zu56 t7fr4iph-5286-4x98-7518-4f04d3u0ax63 ANSI-Medicare Part B c9p967f6-4dy2-6097-8090-fj8q74f3362e j1t537j3-8so6-2479-6639-rh8l56m7720t ANSI-Medicare Part B 33a2q536-2r06-9ng4-9947-5x8z4avpdfa6 69h9s077-5w60-1lb7-0787-2j5o5ruqbgu5 ANSI-Medicare Part B 5259f2r4-6016-3427-7yii-h0yc827ccx76 0972f4n4-3614-2641-6dte-s2oc029czh07 ANSI-Commercial 8004vm69-p58g-82b9-7198-dbb192ch2614 0125bp49-j62c-52u0-6070-jrk120su5857 ANSI-Commercial x5890t8j-2o2v-0677-t633-2uj150z3m823 k7093l7r-1s8m-8854-y311-8io351q6i485 ANSI-Medicare Part B if7a0038-6914-8960-90p1-d19o579e8ka1 gb1h8416-4496-5811-84e7-a00x103g7hh1 ANSI-Medicare Part B 75oe9u33-g7i1-73c4-c300-0400gvh52nxb 73vi5q98-l9s1-32w3-h879-4502npq18ipg ANSI-Commercial j5kn17h5-70m2-4729-s918-c077e9w9701e a3jx53a4-56g7-5961-t668-x023f8k8915q ANSI-Medicare Part B fp17mw90-nq54-3690-ru21-02qh606409b5 zh49we63-kc94-2894-vu58-21ef398621j1 ANSI-Medicare Part B 16i2c027-j00n-5223-540j-d4g8f82m1zjy 83p7y151-g46j-8100-473a-x4j8k72e5ltd MEDICARE [id number] A ANSI-Medicare Part B saz66x51-841m-1417-4l06-581933x8ys3a ftr85m92-420o-6463-1g46-846257p6ym3d ANSI-Commercial 3s4ffq72-7otw-4g3f-a7v4-8r3xq36754ac 5v7wwp23-0hyo-9c8t-j7k0-0e3qm52884bx ANSI-Medicare Part B 96r15719-2a57-35c5-2zqd-22jq4du27zs5 64y57166-3q55-53a6-2ioq-28ye2zl89hp4 ANSI-Medicare Part B 83674vb3-9341-9011-s22a-2i70v55tc786 61406nu7-2926-3910-n32f-9w20p80zh454 ANSI-Medicare Part B 576407sb-604c-11p1-604n-03vahn749059 706705dg-071r-99m1-454y-35wpxy154222 ANSI-Commercial c61ts431-6qg6-3e37-ol77-x103748xjfk2 l80ay138-6cl7-0k56-qz76-o551557koao9 ANSI-Commercial z2nz3077-93eh-09k8-9072-e2lpu7m89502 n4yz5204-77cp-75x6-8012-g5eob4k84186 ANSI-Medicare Part B m297k738-6jik-527n-1c4y-v2ed210ow3g5 n089k501-1srr-018z-7p7m-s5yv731dr1i2 ANSI-Medicare Part B 7m967417-p061-2s85-3v2m-4g686n8x5qe4 1j256695-d486-1y10-0f1r-4n628w6l3fz6 ANSI-Medicare Part B dd091pw1-7i84-84nw-2k5s-r984e9d9cy9c au935vn2-1k78-97zb-8y1b-i714u7o4hl4f ANSI-Commercial 7fbu6827-bqj4-4gin-8st2-072f2z3eu4wm 6lhc3302-oja7-3tyq-0ec1-477v7a8dy0fj ANSI-Medicare Part B 84w0qz32-h5c6-846k-zgw9-nc59466m99n0 47h9mz14-h6s4-962q-qtt9-ta64388j08d0 [facility] [id number] SP [id number] [facility] [id number] SP [id number] [facility] CARE OPTIONS [id number] SP [id number] AARP O [id number] S [id number] Todays Options Commercial [id number] Self [id number] AARP O [id number] S [id number] TODAYS OPTION MEDICARE [id number] Mariluz [employer] Commercial [id number] Self [id number] TODAYS OPTION MEDICARE PI PI AARP HEALTH CARE OPTIONS [id number] SP [id number] TODAYS OPTION MEDICARE [id number] Mariluz [id number] [employer] Commercial .[id number] Self [employer] Commercial [id number] Self Todays Option Commercial [id number] Self TODAYS OPTION CO [id number] AETNA MEDICARE [id number] SP [id number] MEDICARE COMPLETE-UHC O [id number] S [id number] [facility] Medicare Commercial [id number] Self [id number] [facility] Medicare Commercial [id number] Self [employer] [id number] Self [place] [id number] Self MEDICAID [id number] SP [id number] MEDICAID [id number] SP [id number] SELF PAY UNAVAILABLE SP UNAVAILA BLE MEDICAID [id number] SP [id number] MEDICAID [id number] SP [id number] AARP O [id number] S [id number] MEDICARE COMPLETE-UHC O [id number] S [id number] MEDICARE [id number] SP [id number] A [facility] [id number] 18 [id number] BLUE CROSS BLUE SHIELD-O/P [id number] 18 [id number] MEDICARE BLUE PPO P [id number] S [id number] [facility] [id number] 18 [id number] [facility] Medicare Commercial [id number] Self [id number] AETNA MEDICARE [id number] SP [id number] HUMANA GOLD [id number] SP [id number] MEDICARE [id number] SP [id number] Medicaid [facility] Other 0 [id number] Self 0 Humana Care Plan Other 0 [id number] Self 0 Medicare Part B of [facility] Other 0 [id number] Self 0 HUMANA GOLD [id number] SP [id number] AETNA MEDICARE [id number] SP [id number] MEDICARE [id number] SP [id number] HUMANA GOLD [id number] SP [id number] TODAYS OPTIONSDO NOT USE [id number] SP [id number] AARP HEALTH CARE OPTIONS [id number] SP [id number] HUMANA GOLD [id number] SP [id number] HUMANA GOLD O [id number] S [id number] HUMANA GOLD O [id number] S [id number] HUMANA GOLD O [id number] S [id number] HUMANA GOLD [id number] SP [id number] [place] [id number] SP [id number] MEDICAID M [id number] S [id number] Medicare Wrap S [id number] S [id number] TODAYS OPTIONS [id number] SP [id number] WELLCARE [id number] SP [id number] HUMANA PPO [id number] SP [id number] Todays Options Medigap Part B [id number] Self [id number] Humana MCR Adv Commercial [id number] Self [id number] ANSI-Not a Secondary Insurance [id number] ANSI-Medicare Part B [id number] ANSI-Commercial [id number] ANSI-Health Maintenance Organization ( O) [id number] ANSI-Commercial [id number] ANSI-Medicare Part B [id number] ANSI-Health Maintenance Organization ( O) [id number] ANSI-Medicare Part B [id number] ANSI-Commercial [id number] ANSI-Medicare Part B [id number] ANSI-Commercial [id number] ANSI-Not a Secondary Insurance [id number] ANSI-Not a Secondary Insurance [id number] ANSI-Medicare Part B [id number] ANSI-Medicare Part B [id number] ANSI-Commercial [id number] ANSI-Health Maintenance Organization ( O) [id number] ANSI-Commercial [id number] SELF PAY ONLY [id number] SP [id number] HUMANA PPO [id number] SP [id number] WELLCARE [id number] SP [id number] ANSI-Health Maintenance Organization ( O) [id number] ANSI-Medicare Part B [id number] ANSI-Medicare Part B [id number] Problems, Conditions, and Diagnoses Code Display Name Description Problem Type Effective Dates Data Source(s) 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) Iron deficiency anemia secondary to bloo Diagnosis 07/06/2020 09:51:07 AM EDT [facility] I10 Essential (primary) hypertension Essential (primary) h ypertension Diagnosis 07/06/2020 09:51:07 AM EDT [facility] R01.1 Cardiac murmur, unspecified Cardiac murmur, unspecifie d Diagnosis 12/30/2019 08:50:51 AM [facility] R94.31 Abnormal electrocardiogram [ECG] [EKG] A bnormal electrocardiogram (ECG) (EKG) Diagnosis 12/30/2019 08:50:51 AM [facility] K21.9 Gastro-esophageal reflux disease without esophagitis Gastro-esophageal reflux disease without Diagnosis 12/30/2019 08:50:51 AM [facility] M19.90 Unspecified osteoarthritis, unspecified site Unspecified osteoarthritis, unspecified Diagnosis 12/30/2019 08:50:51 AM [facility] E03.9 Hypothyroidism, unspecified Hypothyroidism, unspecifie d Diagnosis 12/30/2019 08:50:51 AM [facility] Z79.4 intermediate designer (current) use of insulin FCI (cu rrent) use of insulin Diagnosis 12/30/2019 08:50:51 AM [facility] E11.9 Type 2 diabetes mellitus without complic ations Type 2 diabetes mellitus without complic Diagnosis 12/30/2019 08:50:51 AM [facility] E78.5 Hyperlipidemia, unspecified Hyperlipidemia, unspecifie d Diagnosis 12/30/2019 08:50:51 AM [facility] N18.9 Chronic kidney disease, unspecified Chronic kidn ey disease, unspecified Diagnosis 12/30/2019 08:50:51 AM [facility] 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 Coronary atherosclerosis due to calcifie Diagnosis 12/30/2019 08:50:51 AM [facility] I25.10 Atherosclerotic heart diseas e of [place] coronary artery without angina pectoris Atherosclerotic heart disease of [place] Diagnosis 12/30/2019 08:50:51 AM EST [facility] I50.9 Heart failure, unspecified Heart failure, unspecified Diagnosis 12/30/2019 08:50:51 AM EST [facility] mild to mod cord compression of C5 and C 6 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 Diagnosis 11/13/2019 12:27:00 PM EDT [facility] M54.12 Cervical radiculopathy Cervical radiculopathy Problem 10/19/2020 12:00:00 AM EDT MEDENT ([facility] ) M48.02 Spinal stenosis in cervical region Spinal stenos is in cervical region Problem 10/19/2020 12:00:00 AM EDT [facility] ([facility] ) R20.2 [id number] Paresthesia of both hands Problem 10/03/2020 12:00:00 AM EDT eC ([facility]) M43.06 Spondylolysis Spondylolysis Problem 08/09/2020 12:00:00 AM EDT MEDENT ([facility]) 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 Problem 08/09/2020 12:00:00 AM EDT [facility] ([facility]) 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 Problem 08/09/2020 12:00:00 AM EDT [facility] ([facility] ) G56.23 Lesion of ulnar nerve Lesion of ulnar nerve Problem 08/09/2020 12:00:00 AM EDT [facility] ([facility]) G25.0 Essential tremor Essential tremor Problem 08/09/2020 12 :00:00 AM EDT MED[facility] ([facility] ) G25.2 [id number] Intention tremor Problem 07/05/2020 12:00:00 AM EDT eCW ([facility]) R29.6 513304908 Frequent falls Problem 06/13/2020 12:00:00 A M EDT eC ([facility]) R20.2 [id number] Arm paresthesia, right Problem 05/12/2020 12:00:00 AM EDT eCW1 ([facility]) R20.2 [id number] Right leg paresthesias Problem 05/12/2020 12:00:00 AM EDT eCW1 ([facility]) K29.80 41552336 Duodenitis Problem 01/19/2020 12:00:00 AM ES T eCW1 ([facility]) D50.0 [id number] Blood loss anemia Problem 01/19/2020 12:00:0 0 AM EST eCW1 ([facility]) 12473873 Essential hypertension Essential hypertension Problem 01/07/2020 12:00:00 AM EST [facility] ([facility]) N18.9 Chronic kidney disease Chronic kidney disease 78490056 12/30/2019 12:00:00 AM EST [facility] I50.32 659361704 Chronic diastolic congestive heart failur e Problem 12/01/2019 12:00:00 AM EDT eCW1 ([facility]) 362.11 Retinopathy Hypertensive Retinopathy Hypertensive Prob juan 04/03/2018 12:00:00 AM EST - 10/05/2020 12:00:00 AM EDT SHANE (Aydin Toribio MD [facility]) 366.16 Age-related nuclear cataract, bilateral Age-related nuclear cataract, bilateral Problem 05/13/2017 12:00:00 AM EDT - 10/05/2020 12:00:00 AM EDT SHANE (Aydin Toribio MD [facility]) Surgeries/Procedures Procedure Description Date Indications Data Source(s) OFFICE OUTPATIENT VISIT 40 MINUTES 10/19/2020 12:00:00 AM EDT [facility] ([facility]) Surgical / procedural history : Cholecys tectomy, Hysterectomy 1989, Right Salivary Gland removed, Fistula removed, 1981, Gallbladder 1982 Surgical / procedural history : Cholecystectomy, Hysterectomy 1989, Right Salivary Gland removed, Fistula removed, 1981, Gallbladder 198210/05/2020 12:00:00 AM EDT SHANE (Aydin mckenna MD [facility]) Extracapsular extraction of lens (procedure) History o f extracapsular cataract extraction PCIOL OD by Dr. Mustafa 12/20/16 ~PCIOL OS by Dr. Mustafa 01/03/17 10/05/2020 12:00:00 AM EDT SHANE (Eric Toribio MD [facility]) OFFICE OUTPATIENT VISIT 15 MINUTES 10/04/2020 12:00:00 AM EDT [facility] ([facility]) ARTHROCENTESIS ASPIR&/INJECTION MAJOR JT/BURSA 021 12:00:00 AM EDT MED[facility] ([facility]) RADIOLOGIC EXAM KNEE COMPLETE 4/MORE VIEWS 09/21/2020 12:00:00 AM EDT [facility] ([facility]) OFFICE OUTPATIENT VISIT 15 MINUTES 09/21/2020 12:00:00 AM EDT [facility] ([facility]) RADIOLOGIC EXAM KNEE COMPLETE 4/MORE VIEWS 09/21/2020 12:00:00 AM EDT [facility] ([facility]) OFFICE OUTPATIENT VISIT 15 MINUTES 09/20/2020 12:00:00 AM EDT [facility] ([facility]) ARTHROCENTESIS ASPIR&/INJECTION MAJOR JT/BURSA 021 12:00:00 AM EDT [facility] ([facility]) RADEX SPINE LUMBOSACRAL 2/3 VIEWS 08/18/2020 12:00:00 AM EDT [facility] ([facility]) OFFICE OUTPATIENT VISIT 25 MINUTES 08/18/2020 12:00:00 AM EDT [facility] ([facility]) Needle electromyography, each extremity, with related paraspinal areas, when performed, done with nerve conduction, amplitude and latency/velocity study; complete, five or more muscles studied, innervated by three or more nerves or four or more spinal levels (list separately in addition to the code for primary procedure). 08/15/2020 12:00:00 AM EDT MEDEN T ([facility] ) Needle electromyography, each extremity, with related paraspinal areas, when performed, done with nerve conduction, amplitude and latency/velocity study; complete, five or more muscles studied, innervated by three or more nerves or four or more spinal levels (list separately in addition to the code for primary procedure). 08/15/2020 12:00:00 AM EDT MEDEN T ([facility] ) Nerve Conduction 9-10 Studies 08/15/2020 12:00:00 AM E DT MEDENT ([facility] ) OFFICE OUTPATIENT NEW 60 MINUTES 08/09/2020 12:00:00 A M EDT [facility] ([facility] ) OFFICE OUTPATIENT VISIT 25 MINUTES 08/01/2020 12:00:00 AM EDT MED[facility] ([facility], ) RADEX SPINE LUMBOSACRAL 2/3 VIEWS 07/13/2020 12:00:00 AM EDT [facility] ([facility] ) OFFICE OUTPATIENT VISIT 15 MINUTES 07/13/2020 12:00:00 AM EDT [facility] ([facility]) ECG ROUTINE ECG W/LEAST 12 LDS W/I&R <td>POCT AMB EKG</td><td>Routine</td><td>06/08/2020 5:25 PM EDT</td><td> Coronary artery disease due to calcified coronary lesion</td><td> </td> 06/08/2020 09:25:00 PM EDT Coronary artery disease due to calcified coronary lesi on [facility] Coronary artery disease due to calcified coronary lesion OFFICE OUTPATIENT VISIT 40 MINUTES 05/26/2020 12:00:00 AM EDT [facility] ([facility]) OFFICE OUTPATIENT VISIT 10 MINUTES 03/24/2020 12:00:00 AM EST [facility] ([facility], ) Endoscopy Upper GI Complex Diagnostic 02/17/2020 12:00 :00 AM EST [facility] ([facility] ) ARTHROCENTESIS ASPIR&/INJECTION MAJOR JT/BURSA 020 12:00:00 AM EDT [facility] ([facility]) Therapeutic, Prophylactic Or Diagnostic Injection Subq/Im 11/06/2019 12:00:00 AM EDT [facility] ([facility]) Results ID Date Data Source [id number] 12/25/2020 01:58:00 AM EDT [facility] Name Value Range Interpretation Code Description Data Jessica rce(s) Supporting Document(s) SARS coronavirus 2 RNA [Presence] in Res piratory specimen by AVI with probe detection NEGATIVE [facility] This lab was ordered by [facility] a nd reported by [facility]. ID Date Data Source TSH 10/03/2020 12:00:00 AM EDT eCW1 ([facility]) Name Value Range Interpretation Code Description Data Jessica rce(s) Supporting Document(s) 5.420 0.358-3.740 THYROID STIMULATING HORM ONE eCW1 ([facility]) ID Date Data Source Basic Metabolic Profile (BMP) 10/03/2020 12:00:00 AM EDT eCW 1 ([facility]) Name Value Range Interpretation Code Description Data Jessica rce(s) Supporting Document(s) 31 7-18 BLOOD UREA NITROGEN eCW1 ([facility]) 310 70-100 GLUCOSE, FASTING eCW1 ([facility]) 1.11 0.55-1.30 CREATININE FOR GFR eCW1 ([facility]) 52.0 >45 GLOMERULAR FILTRATION RATE eCW 1 ([facility]) 137 136-145 SODIUM LEVEL eCW1 ([facility]) 9.5 8.8-10.2 CALCIUM LEVEL eCW1 ([facility]) 103 98-107 CHLORIDE LEVEL eCW1 ([facility]) 21 21-32 CARBON DIOXIDE LEVEL eCW1 ([facility]) 3.8 3.5-5.1 POTASSIUM SERUM eCW1 ([facility]) ID Date Data Source [id number] 10/03/2020 12:00:00 AM EDT eCW1 ([facility]) Name Value Range Interpretation Code Description Data Jessica rce(s) Supporting Document(s) Hemoglobin A1c/Hemoglobin.total in Blood 11.3 HEMOGLOBIN A1c eCW1 ([facility]) ID Date Data Source [id number] 08/27/2020 09:14:00 PM EDT [facility] Name Value Range Interpretation Code Description Data Jessica rce(s) Supporting Document(s) SARS coronavirus 2 RNA [Presence] in Res piratory specimen by AVI with probe detection NEGATIVE [facility] This lab was ordered by [facility] a nd reported by [facility]. ID Date Data Source [id number] 07/23/2020 07:57:00 AM EDT [facility] FASTING: UNKNOWNReceived: 07/23/2020 at 07:55:00 QPT: [facility], [address], [address] [place], [address], Bridger Mckinley MD Received: 07/23/2020 at 07:55:00 QPT : [facility], [address], [address] [place], [address], Bridger Mckinley MD Name Value Range Interpretation [...] is approximately 13% higher for peopleidentified as -Mauritian. eGFR NON-AFR. KENYAN 89 mL/min/1.73m2 > OR = 60 Normal [...] results) [facility] ID Date Data Source [id number] 07/23/2020 07:57:00 AM EDT [facility] FASTING: UNKNOWNReceived: 07/23/2020 at 07:55:00 QPT: [facility], [address], [address] [place], [address], Bridger Mckinley MD Received: 07/23/2020 at 07:55:00 QPT : [facility], [address], [address] [place], [address], Bridger Mckinley MD Name Value Range Interpretation [...] DTHE DATE THE SPECIMEN WAS RECEIVED BY [facility] THE COLLECTION DATE. IF THISIS INCORRECT, PLEASE CONTACT CLIENT SERVICES.PHONE NUMBER: [phone] ID Date Data Source [id number] 05/30/2020 03:59:00 PM EDT [facility] Name Value Range Interpretation Code Description Data Jessica rce(s) Supporting Document(s) SARS coronavirus 2 RNA [Presence] in Res piratory specimen by AVI with probe detection NEGATIVE [facility] This lab was ordered by [facility] a nd reported by [facility]. ID Date Data Source [id number] 05/15/2020 11:00:00 AM EDT [facility] Name Value Range Interpretation Code Description Data Jessica rce(s) Supporting Document(s) SARS coronavirus 2 RNA [Presence] in Res piratory specimen by AVI with probe detection NEGATIVE [facility] This lab was ordered by [facility] a nd reported by [facility]. ID Date Data Source [id number] 05/12/2020 10:00:00 AM EDT [facility] Name Value Range Interpretation Code Description Data Jessica rce(s) Supporting Document(s) SARS coronavirus 2 RNA Not Detected [facility] This lab was ordered by [facility] and reported by [facility]. ID Date Data Source [facility] CT ANGIO CHEST 02/24/2020 12:00:00 AM EST eCW1 ([facility]) Name Value Range Interpretation Code Description Data Jessica rce(s) Supporting Document(s) [facility] ANGIO CHEST eCW1 ([facility]) ID Date Data Source [id number] QUANT 02/23/2020 12:00:00 AM EST eCW1 ([facility]) Name Value Range Interpretation Code Description Data Jessica rce(s) Supporting Document(s) 1932.80 <500 D-DIMER QUANT eCW1 ([facility]) ID Date Data Source [id number] 02/12/2020 11:00:00 AM EST [facility] Name Value Range Interpretation Code Description Data Jessica rce(s) Supporting Document(s) SARS coronavirus 2 RNA [facility] This lab was ordered by [facility] and reported by [facility]. ID Date Data Source CBC - Complete Blood Count 02/09/2020 12:00:00 AM EST eCW1 ( [facility]) Name Value Range Interpretation Code Description Data Jessica rce(s) Supporting Document(s) 4.96 4.00-5.40 RED BLOOD COUNT eCW1 ([facility]) 11.1 12.0-15.5 HEMOGLOBIN eCW1 ([facility]) 8.6 4.0-10.0 WHITE BLOOD COUNT eCW1 ([facility]) 36.7 36.0-47.0 HEMATOCRIT eCW1 ([facility]) 74.0 80.0-96.0 MEAN CORPUSCULAR VOLUME e CW1 ([facility]) 22.4 27.0-33.0 MEAN CORPUSCULAR HEMOGLOB IN eCW1 ([facility]) 23.9 11.5-14.5 RED CELL DISTRIBUTION WID TH eCW1 ([facility]) 30.2 32.0-36.5 MEAN CORPUSCULAR HGB CONC eCW1 ([facility]) 305 150-450 PLATELET COUNT, AUTOMATED eCW1 ([facility]) ID Date Data Source [id number] 01/31/2020 06:30:00 PM EST [facility] Name Value Range Interpretation Code Description Data Jessica rce(s) Supporting Document(s) SARS coronavirus 2 RNA [Presence] in Res piratory specimen by AVI with probe detection [facility] This lab was ordered by [facility] a nd reported by [facility]. Procedure Social History Code Duration Value Status Description Data Source(s ) Smoking 12/12/2020 12:00:00 AM EDT Former Smoker completed Former Smoker eCW1 ([facility]) Smoking 12/12/2020 12:00:00 AM EDT Former Smoker completed Former Smoker eCW1 ([facility]) Smoking 12/12/2020 12:00:00 AM EDT Former Smoker completed Former Smoker eCW1 ([facility]) Smoking 12/12/2020 12:00:00 AM EDT Former Smoker completed Former Smoker eCW1 ([facility]) Alcohol intake 10/12/2020 12:00:00 AM EDT Current drinker of al cohol (finding) completed Current drinker of alcohol (finding) [facility] Tobacco use and exposure 10/12/2020 12:00:00 AM EDT Never used co mpleted Never used [facility] Smoking 10/12/2020 12:00:00 AM EDT Former smoker completed Former smoker [facility] Smoking 10/11/2020 12:00:00 AM EDT Former Smoker completed Former Smoker eCW1 ([facility]) Smoking 10/11/2020 12:00:00 AM EDT Former Smoker completed Former Smoker eCW1 ([facility]) Smoking 10/11/2020 12:00:00 AM EDT Former Smoker completed Former Smoker eCW1 ([facility]) Smoking 10/05/2020 11:56:16 AM EDT Ex-smoker (finding) complet ed Ex-smoker (finding) [facility] (Aydin Toribio MD [facility]) Smoking 10/03/2020 12:00:00 AM EDT Former Smoker completed Former Smoker eCW1 ([facility]) Smoking 10/03/2020 12:00:00 AM EDT Former Smoker completed Former Smoker eCW1 ([facility]) Smoking 10/03/2020 12:00:00 AM EDT Former Smoker completed Former Smoker eCW1 ([facility]) Smoking 10/03/2020 12:00:00 AM EDT Former Smoker completed Former Smoker eCW1 ([facility]) Alcohol intake 09/09/2020 12:00:00 AM EDT Current drinker of al cohol (finding) completed Current drinker of alcohol (finding) [facility] Smoking 08/22/2020 12:00:00 AM EDT Former Smoker completed Former Smoker eCW1 ([facility]) Smoking 08/22/2020 12:00:00 AM EDT Former Smoker completed Former Smoker eCW1 ([facility]) Smoking 08/22/2020 12:00:00 AM EDT Former Smoker completed Former Smoker eCW1 ([facility]) Smoking 08/22/2020 12:00:00 AM EDT Former Smoker completed Former Smoker eCW1 ([facility]) Smoking 08/22/2020 12:00:00 AM EDT Former Smoker completed Former Smoker eCW1 ([facility]) Smoking 08/22/2020 12:00:00 AM EDT Former Smoker completed Former Smoker eCW1 ([facility]) Smoking 08/22/2020 12:00:00 AM EDT Former Smoker completed Former Smoker eCW1 ([facility]) Smoking 08/22/2020 12:00:00 AM EDT Former Smoker completed Former Smoker eCW1 ([facility]) Smoking 08/22/2020 12:00:00 AM EDT Former Smoker completed Former Smoker eCW1 ([facility]) Smoking 08/02/2020 12:00:00 AM EDT Former Smoker completed Former Smoker eCW1 ([facility]) Smoking 08/02/2020 12:00:00 AM EDT Former Smoker completed Former Smoker eCW1 ([facility]) Smoking 07/20/2020 12:00:00 AM EDT Former Smoker completed Former Smoker eCW1 ([facility]) Smoking 07/20/2020 12:00:00 AM EDT Former Smoker completed Former Smoker eCW1 ([facility]) Smoking 07/20/2020 12:00:00 AM EDT Former Smoker completed Former Smoker eCW1 ([facility]) Alcohol intake 07/06/2020 12:00:00 AM EDT Current drinker of al cohol (finding) completed Current drinker of alcohol (finding) [facility] Smoking 07/05/2020 12:00:00 AM EDT Former Smoker completed Former Smoker eCW1 ([facility]) Smoking 07/05/2020 12:00:00 AM EDT Former Smoker completed Former Smoker eCW1 ([facility]) Smoking 07/05/2020 12:00:00 AM EDT Former Smoker completed Former Smoker eCW1 ([facility]) Smoking 07/05/2020 12:00:00 AM EDT Former Smoker completed Former Smoker eCW1 ([facility]) Smoking 07/05/2020 12:00:00 AM EDT Former Smoker completed Former Smoker eCW1 ([facility]) Smoking 06/13/2020 12:00:00 AM EDT Former Smoker completed Former Smoker eCW1 ([facility]) Smoking 06/13/2020 12:00:00 AM EDT Former Smoker completed Former Smoker eCW1 ([facility]) Smoking 06/13/2020 12:00:00 AM EDT Former Smoker completed Former Smoker eCW1 ([facility]) Smoking 06/13/2020 12:00:00 AM EDT Former Smoker completed Former Smoker eCW1 ([facility]) Alcohol intake 06/08/2020 12:00:00 AM EDT Yes completed [facility] Smoking 06/08/2020 12:00:00 AM EDT Never smoker completed Never s [facility] Smoking 05/12/2020 12:00:00 AM EDT Former Smoker completed Former Smoker eCW1 ([facility]) Smoking 05/12/2020 12:00:00 AM EDT Former Smoker completed Former Smoker eCW1 ([facility]) Smoking 05/12/2020 12:00:00 AM EDT Former Smoker completed Former Smoker eCW1 ([facility]) Smoking 05/12/2020 12:00:00 AM EDT Former Smoker completed Former Smoker eCW1 ([facility]) Smoking 05/12/2020 12:00:00 AM EDT Former Smoker completed Former Smoker eCW1 ([facility]) Smoking 05/12/2020 12:00:00 AM EDT Former Smoker completed Former Smoker eCW1 ([facility]) Smoking 05/12/2020 12:00:00 AM EDT Former Smoker completed Former Smoker eCW1 ([facility]) Alcohol intake 04/15/2020 12:00:00 AM EST Yes completed [facility] Smoking 04/15/2020 12:00:00 AM EST [facility] 04[facility]04/2020 12:00:00 AM EST Former Smoker completed Former Smoker eCW1 ([facility]) Smoking 04/04/2020 12:00:00 AM EST Former Smoker completed Former Smoker eCW1 ([facility]) Smoking 04/04/2020 12:00:00 AM EST Former Smoker completed Former Smoker eCW1 ([facility]) Smoking 04/04/2020 12:00:00 AM EST Former Smoker completed Former Smoker eCW1 ([facility]) Smoking 04/04/2020 12:00:00 AM EST Former Smoker completed Former Smoker eCW1 ([facility]) Smoking 04/04/2020 12:00:00 AM EST Former Smoker completed Former Smoker eCW1 ([facility]) Smoking 04/04/2020 12:00:00 AM EST Former Smoker completed Former Smoker eCW1 ([facility]) Smoking 04/04/2020 12:00:00 AM EST Former Smoker completed Former Smoker eCW1 ([facility]) Smoking 03/08/2020 12:00:00 AM EST Former Smoker completed Former Smoker eCW1 ([facility]) Smoking 03/08/2020 12:00:00 AM EST Former Smoker completed Former Smoker eCW1 ([facility]) Smoking 03/08/2020 12:00:00 AM EST Former Smoker completed Former Smoker eCW1 ([facility]) Smoking 03/08/2020 12:00:00 AM EST Former Smoker completed Former Smoker eCW1 ([facility]) Smoking 03/08/2020 12:00:00 AM EST Former Smoker completed Former Smoker eCW1 ([facility]) Smoking 03/08/2020 12:00:00 AM EST Former Smoker completed Former Smoker eCW1 ([facility]) Smoking 02/23/2020 12:00:00 AM EST Former Smoker completed Former Smoker eCW1 ([facility]) Smoking 02/23/2020 12:00:00 AM EST Former Smoker completed Former Smoker eCW1 ([facility]) Smoking 02/23/2020 12:00:00 AM EST Former Smoker completed Former Smoker eCW1 ([facility]) Smoking 02/23/2020 12:00:00 AM EST Former Smoker completed Former Smoker eCW1 ([facility]) Smoking 02/23/2020 12:00:00 AM EST Former Smoker completed Former Smoker eCW1 ([facility]) Smoking 02/23/2020 12:00:00 AM EST Former Smoker completed Former Smoker eCW1 ([facility]) Smoking 02/09/2020 12:00:00 AM EST Former Smoker completed Former Smoker eCW1 ([facility]) Smoking 02/09/2020 12:00:00 AM EST Former Smoker completed Former Smoker eCW1 ([facility]) Smoking 02/09/2020 12:00:00 AM EST Former Smoker completed Former Smoker eCW1 ([facility]) Smoking 02/09/2020 12:00:00 AM EST Former Smoker completed Former Smoker eCW1 ([facility]) Smoking 02/09/2020 12:00:00 AM EST Former Smoker completed Former Smoker eCW1 ([facility]) Smoking 02/09/2020 12:00:00 AM EST Former Smoker completed Former Smoker eCW1 ([facility]) Smoking 01/26/2020 12:00:00 AM EST Former Smoker completed Former Smoker eCW1 ([facility]) Smoking 01/26/2020 12:00:00 AM EST Former Smoker completed Former Smoker eCW1 ([facility]) Smoking 01/26/2020 12:00:00 AM EST Former Smoker completed Former Smoker eCW1 ([facility]) Smoking 01/26/2020 12:00:00 AM EST Former Smoker completed Former Smoker eCW1 ([facility]) Smoking 01/26/2020 12:00:00 AM EST Former Smoker completed Former Smoker eCW1 ([facility]) Smoking 01/19/2020 12:00:00 AM EST Former Smoker completed Former Smoker eCW1 ([facility]) Alcohol intake 12/30/2019 12:00:00 AM EST Yes completed [facility] Smoking 12/30/2019 12:00:00 AM EST Never smoker completed Never s moker [facility] Smoking 12/01/2019 12:00:00 AM EDT Former Smoker completed Former Smoker eCW1 ([facility]) Smoking 12/01/2019 12:00:00 AM EDT Former Smoker completed Former Smoker eCW1 ([facility]) Smoking 12/01/2019 12:00:00 AM EDT Former Smoker completed Former Smoker eCW1 ([facility]) Smoking 12/01/2019 12:00:00 AM EDT Former Smoker completed Former Smoker eCW1 ([facility]) Smoking 12/01/2019 12:00:00 AM EDT Former Smoker completed Former Smoker eCW1 ([facility]) Smoking 12/01/2019 12:00:00 AM EDT Former Smoker completed Former Smoker eCW1 ([facility]) Smoking 12/01/2019 12:00:00 AM EDT Former Smoker completed Former Smoker eCW1 ([facility]) Smoking 12/01/2019 12:00:00 AM EDT Former Smoker completed Former Smoker eCW1 ([facility]) Smoking 12/01/2019 12:00:00 AM EDT Former Smoker completed Former Smoker eCW1 ([facility]) Smoking 12/01/2019 12:00:00 AM EDT Former Smoker completed Former Smoker eCW1 ([facility]) Smoking 12/01/2019 12:00:00 AM EDT Former Smoker completed Former Smoker eCW1 ([facility]) Smoking 12/01/2019 12:00:00 AM EDT Former Smoker completed Former Smoker eCW1 ([facility]) Smoking 11/06/2019 12:00:00 AM EDT Patient is a former smoker completed Patient is a former smoker MEDENT ([facility], [facility]) Vital Signs ID Date Data Source UNK Name Value Range Interpretation Code Description Data Source(s) Body weight 166 [lb_av] 166 [lb_av] eCW1 ([facility]) Body height 63.5 [in_i] 63.5 [in_i] eCW1 ([facility]) Body mass index (BMI) [Ratio] 28.94 kg/m2 28.94 kg/m2 eCW1 ([facility]) Heart rate 74 /min 74 /min eCW1 ([facility]) Respiratory rate 18 /min 18 /min eCW1 ([facility]) Body temperature 96.5 [degF] 96.5 [degF] eCW1 ( [facility]) Systolic blood pressure 150 mm[Hg] 150 mm[Hg] e CW1 ([facility]) Diastolic blood pressure 70 mm[Hg] 70 mm[Hg] eCW1 ([facility]) Systolic blood pressure 130 mm[Hg] 130 mm[Hg] [facility] Diastolic blood pressure 60 mm[Hg] 60 mm[Hg] [facility] Body height 160 cm 160 cm [facility] Body weight 79.742 kg 79.742 kg [facility] Body mass index (BMI) [Ratio] 31.14 kg/m2 31.14 kg/m2 [facility] Oxygen saturation in Arterial blood by Pulse oximetry 99 % 99 % [facility] Heart rate 65 /min 65 /min [facility] Body weight 177.4 [lb_av] 177.4 [lb_av] eCW1 ([facility]) Body weight 80.47 kg 80.47 kg W1 ([facility]) Body height 63.5 [in_i] 63.5 [in_i] W1 ([facility]) Body mass index (BMI) [Ratio] 30.93 kg/m2 30.93 kg/m2 eCW1 ([facility]) Heart rate 83 /min 83 /min eCW1 ([facility]) Respiratory rate 18 /min 18 /min eCW1 ([facility]) Body temperature 96.5 [degF] 96.5 [degF] eCW1 ( [facility]) Systolic blood pressure 160 mm[Hg] 160 mm[Hg] e CW1 ([facility]) Diastolic blood pressure 82 mm[Hg] 82 mm[Hg] eCW1 ([facility]) [place] body weight 110 [lb_av] 110 [lb_av] MEDEN T ([facility]) Systolic blood pressure 167 mm[Hg] 167 mm[facility]Hg[facility] Diastolic blood pressure 73 mm[Hg] 73 mm[Hg] [facility] ([facility]) Heart rate 83 /min 83 /min [facility] ([facility]) Body temperature 95.2 [degF] 95.2 [degF] [facility] ([facility]) Body height 62 [in_i] 62 [in_i] [facility] ([facility]) 5'2" Body weight 175.00 [lb_av] 175.00 [lb_av] MEDEN T ([facility]) Body mass index (BMI) [Ratio] 32.0 kg/m2 32.0 k g/m2 [facility] ([facility]) Body weight 79.380 kg 79.380 kg [facility] ([facility]) Body surface area Derived from formula 1.81 m2 1.81 m2 [facility] ([facility]) Body weight 175 [lb_av] 175 [lb_av] eCW1 ([facility]) Body height 63.5 [in_i] 63.5 [in_i] eCW1 ([facility]) Body mass index (BMI) [Ratio] 30.51 kg/m2 30.51 kg/m2 W1 ([facility]) Heart rate 72 /min 72 /min eCW1 ([facility]) Respiratory rate 18 /min 18 /min eCW1 ([facility]) Body temperature 96.5 [degF] 96.5 [degF] eCW1 ( [facility]) Systolic blood pressure 120 mm[Hg] 120 mm[Hg] e CW1 ([facility]) Diastolic blood pressure 60 mm[Hg] 60 mm[Hg] eCW1 ([facility]) Body height 62 [in_i] 62 [in_i] [facility] ([facility]) 5'2" Systolic blood pressure 132 mm[Hg] 132 mm[facility]Hg[facility] Body weight 179.00 [lb_av] 179.00 [lb_av] MEDEN T ([facility]) Body mass index (BMI) [Ratio] 32.7 kg/m2 32.7 k g/m2 [facility] ([facility]) Body surface area Derived from formula 1.82 m2 1.82 m2 [facility] ([facility]) Diastolic blood pressure 70 mm[Hg] 70 mm[Hg] MEDENT ([facility]) [place] body weight 110 [lb_av] 110 [lb_av] MEDEN T ([facility]) Body weight 81.194 kg 81.194 kg [facility] ([facility]) Systolic blood pressure 148 mm[Hg] 148 mm[Hg] [facility] Diastolic blood pressure 68 mm[Hg] 68 mm[Hg] [facility] Heart rate 59 /min 59 /min [facility] Body height 160 cm 160 cm [facility] Body weight 81.466 kg 81.466 kg [facility] Body mass index (BMI) [Ratio] 31.81 kg/m2 31.81 kg/m2 [facility] Oxygen saturation in Arterial blood by Pulse oximetry 99 % 99 % [facility] Body mass index (BMI) [Ratio] 31.17 kg/m2 31.17 kg/m2 eCW1 ([facility]) Body weight 178.8 [lb_av] 178.8 [lb_av] eCW1 ([facility]) Body height 63.5 [in_i] 63.5 [in_i] eCW1 ([facility]) Systolic blood pressure 142 mm[Hg] 142 mm[Hg] e CW1 ([facility]) Diastolic blood pressure 84 mm[Hg] 84 mm[Hg] eCW1 ([facility]) Heart rate 103 /min 103 /min eCW1 ([facility]) Respiratory rate 18 /min 18 /min eCW1 ([facility]) Body temperature 97.7 [degF] 97.7 [degF] eCW1 ( [facility]) Body weight 186 [lb_av] 186 [lb_av] eCW1 ([facility]) Body height 63.5 [in_i] 63.5 [in_i] eCW1 ([facility]) Body mass index (BMI) [Ratio] 32.43 kg/m2 32.43 kg/m2 eCW1 ([facility]) Heart rate 77 /min 77 /min eCW1 ([facility]) Respiratory rate 18 /min 18 /min eCW1 ([facility]) Body temperature 96.9 [degF] 96.9 [degF] eCW1 ( [facility]) Systolic blood pressure 142 mm[Hg] 142 mm[Hg] e CW1 ([facility]) Diastolic blood pressure 76 mm[Hg] 76 mm[Hg] eCW1 ([facility]) Body surface area Derived from formula 1.85 m2 1.85 m2 [facility], ) Body weight 185.00 [lb_av] 185.00 [lb_av] MEDEN T ([facility]) Body mass index (BMI) [Ratio] 33.8 kg/m2 33.8 k g/m2 [facility]) [place] body weight 110 [lb_av] 110 [lb_av] MEDEN T ([facility]) Body weight 83.916 kg 83.916 kg [facility] ([facility]) Body height 62 [in_i] 62 [in_i] [facility] 5'2" Body surface area Derived from formula 1.85 m2 1.85 m2 [facility] ([facility]) Systolic blood pressure 136 mm[Hg] 136 mm[Hg] M EDENT ([facility]) Diastolic blood pressure 70 mm[Hg] 70 mm[Hg] [facility] Body height 62 [in_i] 62 [in_i] MEDENT ([facility]) 5'2" Body weight 185.00 [lb_av] 185.00 [lb_av] MEDEN T ([facility], ) Body mass index (BMI) [Ratio] 33.8 kg/m2 33.8 k g/m2 [facility] ([facility]) [place] body weight 110 [lb_av] 110 [lb_av] MEDEN T ([facility]) Body weight 83.916 kg 83.916 kg [facility] ([facility]) Body weight 183 [lb_av] 183 [lb_av] eCW1 ([facility]) Body height 63.5 [in_i] 63.5 [in_i] eCW1 ([facility]) Body mass index (BMI) [Ratio] 31.91 kg/m2 31.91 kg/m2 W1 ([facility]) Heart rate 71 /min 71 /min eCW1 ([facility]) Respiratory rate 18 /min 18 /min eCW1 ([facility]) Body temperature 98.3 [degF] 98.3 [degF] eCW1 ( [facility]) Systolic blood pressure 144 mm[Hg] 144 mm[Hg] e CW1 ([facility]) Diastolic blood pressure 62 mm[Hg] 62 mm[Hg] eCW1 ([facility]) Systolic blood pressure 140 mm[Hg] 140 mm[Hg] [facility] Diastolic blood pressure 80 mm[Hg] 80 mm[Hg] [facility] Oxygen saturation in Arterial blood by Pulse oximetry 97 % 97 % [facility] Heart rate 69 /min 69 /min [facility] Body height 160 cm 160 cm [facility] Body weight 87.091 kg 87.091 kg [facility] Body mass index (BMI) [Ratio] 34.01 kg/m2 34.01 kg/m2 [facility] Diastolic blood pressure 76 mm[Hg] 76 mm[Hg] eCW1 ([facility]) Body weight 192 [lb_av] 192 [lb_av] eCW1 ([facility]) Body height 63.5 [in_i] 63.5 [in_i] eCW1 ([facility]) Body mass index (BMI) [Ratio] 33.47 kg/m2 33.47 kg/m2 eCW1 ([facility]) Heart rate 91 /min 91 /min eCW1 ([facility]) Respiratory rate 18 /min 18 /min eCW1 ([facility]) Systolic blood pressure 130 mm[Hg] 130 mm[Hg] e CW1 ([facility]) Body temperature 97.4 [degF] 97.4 [degF] eCW1 ( [facility]) Body weight 189.4 [lb_av] 189.4 [lb_av] eCW1 ([facility]) Body height 63.5 [in_i] 63.5 [in_i] eCW1 ([facility]) Body mass index (BMI) [Ratio] 33.02 kg/m2 33.02 kg/m2 eCW1 ([facility]) Heart rate 73 /min 73 /min eCW1 ([facility]) Respiratory rate 18 /min 18 /min eCW1 ([facility]) Body temperature 97.3 [degF] 97.3 [degF] eCW1 ( [facility]) Systolic blood pressure 124 mm[Hg] 124 mm[Hg] e CW1 ([facility]) Diastolic blood pressure 70 mm[Hg] 70 mm[Hg] eCW1 ([facility]) Diastolic blood pressure 80 mm[Hg] 80 mm[Hg] [facility] Systolic blood pressure 140 mm[Hg] 140 mm[Hg] [facility] Oxygen saturation in Arterial blood by Pulse oximetry 99 % 99 % [facility] Heart rate 65 /min 65 /min [facility] Body height 160 cm 160 cm [facility] Body weight 84.369 kg 84.369 kg [facility] Body mass index (BMI) [Ratio] 32.95 kg/m2 32.95 kg/m2 [facility] Body height 63.5 [in_i] 63.5 [in_i] MEDENT ([facility]) 5'3.50" Body weight 190.00 [lb_av] 190.00 [lb_av] MEDEN T ([facility]) Body mass index (BMI) [Ratio] 33.1 kg/m2 33.1 k g/m2 MEDENT ([facility]) Body weight 188.6 [lb_av] 188.6 [lb_av] eCW1 ([facility]) Body height 63.5 [in_i] 63.5 [in_i] eCW1 ([facility]) Body mass index (BMI) [Ratio] 32.88 kg/m2 32.88 kg/m2 eCW1 ([facility]) Heart rate 61 /min 61 /min eCW1 ([facility]) Respiratory rate 18 /min 18 /min eCW1 ([facility]) Body temperature 97.5 [degF] 97.5 [degF] eCW1 ( [facility]) Systolic blood pressure 118 mm[Hg] 118 mm[Hg] e CW1 ([facility]) Diastolic blood pressure 68 mm[Hg] 68 mm[Hg] eCW1 ([facility]) Body weight 200.4 [lb_av] 200.4 [lb_av] eCW1 ([facility]) Body height 63.5 [in_i] 63.5 [in_i] eCW1 ([facility]) Body mass index (BMI) [Ratio] 34.94 kg/m2 34.94 kg/m2 eCW1 ([facility]) Systolic blood pressure 130 mm[Hg] 130 mm[Hg] [facility] Diastolic blood pressure 75 mm[Hg] 75 mm[Hg] [facility] Body height 160 cm 160 cm [facility] Body weight 89.359 kg 89.359 kg [facility] Body mass index (BMI) [Ratio] 34.90 kg/m2 34.90 kg/m2 [facility] Oxygen saturation in Arterial blood by Pulse oximetry 93 % 93 % [facility] Heart rate 73 /min 73 /min [facility] Body weight 183 [lb_av] 183 [lb_av] eCW1 ([facility]) Body height 63.5 [in_i] 63.5 [in_i] eCW1 ([facility]) Body mass index (BMI) [Ratio] 31.91 kg/m2 31.91 kg/m2 eCW1 ([facility]) Body temperature 96.4 [degF] 96.4 [degF] eCW1 ( [facility]) Body weight 183 [lb_av] 183 [lb_av] eCW1 ([facility]) Body height 63.5 [in_i] 63.5 [in_i] eCW1 ([facility]) Body mass index (BMI) [Ratio] 31.91 kg/m2 31.91 kg/m2 eCW1 ([facility]) Heart rate 52 /min 52 /min eCW1 ([facility]) Respiratory rate 18 /min 18 /min eCW1 ([facility]) Systolic blood pressure 98 mm[Hg] 98 mm[Hg] e CW1 ([facility]) Diastolic blood pressure 56 mm[Hg] 56 mm[Hg] eCW1 ([facility]) Body weight 186.00 [lb_av] 186.00 [lb_av] MEDEN T ([facility], ) Body mass index (BMI) [Ratio] 34.0 kg/m2 34.0 k g/m2 MEDENT ([facility], ) [place] body weight 110 [lb_av] 110 [lb_av] MEDEN T ([facility], ) Systolic blood pressure 150 mm[Hg] 150 mm[Hg] M EDENT ([facility], ) Diastolic blood pressure 90 mm[Hg] 90 mm[Hg] MEDENT ([facility], ) Body height 62 [in_i] 62 [in_i] MEDMARIA INES ([facility], ) 5'2" Body weight 84.370 kg 84.370 kg [facility], ) Body surface area Derived from formula 1.85 m2 1.85 m2 [facility] ([facility], ) Body weight 185 [lb_av] 185 [lb_av] eCW1 ([facility]) Body height 63.5 [in_i] 63.5 [in_i] eCW1 ([facility]) Body mass index (BMI) [Ratio] 32.25 kg/m2 32.25 kg/m2 eCW1 ([facility]) Heart rate 89 /min 89 /min eCW1 ([facility]) Respiratory rate 20 /min 20 /min eCW1 ([facility]) Body temperature 96.1 [degF] 96.1 [degF] eCW1 ( [facility]) Systolic blood pressure 128 mm[Hg] 128 mm[Hg] e CW1 ([facility]) Diastolic blood pressure 70 mm[Hg] 70 mm[Hg] eCW1 ([facility]) Body weight 198 [lb_av] 198 [lb_av] eCW1 ([facility]) Body height 63.5 [in_i] 63.5 [in_i] eCW1 ([facility]) Body mass index (BMI) [Ratio] 34.52 kg/m2 34.52 kg/m2 eCW1 ([facility]) Heart rate 72 /min 72 /min eCW1 ([facility]) Respiratory rate 20 /min 20 /min eCW1 ([facility]) Body temperature 98.4 [degF] 98.4 [degF] eCW1 ( [facility]) Systolic blood pressure 130 mm[Hg] 130 mm[Hg] e CW1 ([facility]) Diastolic blood pressure 60 mm[Hg] 60 mm[Hg] eCW1 ([facility]) Respiratory rate 20 /min 20 /min eCW1 ([facility]) Body height 63.5 [in_i] 63.5 [in_i] eCW1 ([facility]) Body mass index (BMI) [Ratio] 29.29 kg/m2 29.29 kg/m2 eCW1 ([facility]) Heart rate 88 /min 88 /min eCW1 ([facility]) Body weight 168 [lb_av] 168 [lb_av] eCW1 ([facility]) Body temperature [degF] eCW1 ([facility]) Systolic blood pressure 122 mm[Hg] 122 mm[Hg] e CW1 ([facility]) Diastolic blood pressure 60 mm[Hg] 60 mm[Hg] eCW1 ([facility]) Body height 62 [in_i] 62 [in_i] MEDENT ([facility], ) 5'2" Body weight 172.00 [lb_av] 172.00 [lb_av] MEDEN T ([facility]) Body mass index (BMI) [Ratio] 31.5 kg/m2 31.5 k g/m2 [facility] ([facility]) Systolic blood pressure 138 mm[Hg] 138 mm[Hg] M EDENT ([facility]) Diastolic blood pressure 70 mm[Hg] 70 mm[Hg] [facility] ([facility]) [place] body weight 110 [lb_av] 110 [lb_av] MEDEN T ([facility]) Body weight 78.019 kg 78.019 kg MED[facility] ([facility]) Body surface area Derived from formula 1.79 m2 1.79 m2 MED[facility] ([facility]) Diastolic blood pressure 72 mm[Hg] 72 mm[Hg] MED[facility] ([facility]) Body height 54.5 [in_i] 54.5 [in_i] MEDENT ([facility]) 4'6.50" Body weight 172.00 [lb_av] 172.00 [lb_av] MEDEN T ([facility]) Body mass index (BMI) [Ratio] 40.7 kg/m2 40.7 k g/m2 [facility] ([facility]) [place] body weight 100 [lb_av] 100 [lb_av] MEDEN T ([facility]) Body weight 78.019 kg 78.019 kg [facility]) Body surface area Derived from formula 1.63 m2 1.63 m2 [facility] ([facility]) Systolic blood pressure 140 mm[Hg] 140 mm[Hg] [facility] Body weight 175 [lb_av] 175 [lb_av] eCW1 ([facility]) Body height 63.5 [in_i] 63.5 [in_i] eCW1 ([facility]) Body mass index (BMI) [Ratio] 30.51 kg/m2 30.51 kg/m2 eCW1 ([facility]) Heart rate 56 /min 56 /min eCW1 ([facility]) Respiratory rate 18 /min 18 /min eCW1 ([facility]) Body temperature 96.2 [degF] 96.2 [degF] eCW1 ( [facility]) Systolic blood pressure 98 mm[Hg] 98 mm[Hg] e CW1 ([facility]) Diastolic blood pressure 58 mm[Hg] 58 mm[Hg] eCW1 ([facility]) Systolic blood pressure 110 mm[Hg] 110 mm[Hg] M [facility] ([facility]) Diastolic blood pressure 58 mm[Hg] 58 mm[Hg] [facility] Body height 54.5 [in_i] 54.5 [in_i] [facility] ([facility]) 4'6.50" Body weight 170.00 [lb_av] 170.00 [lb_av] MEDEN T ([facility]) Body mass index (BMI) [Ratio] 40.2 kg/m2 40.2 k g/m2 [facility] ([facility]) [place] body weight 100 [lb_av] 100 [lb_av] MEDEN T ([facility]) Body weight 77.112 kg 77.112 kg [facility] ([facility]) Body surface area Derived from formula 1.62 m2 1.62 m2 [facility] ([facility]) Systolic blood pressure 140 mm[Hg] 140 mm[Hg] [facility] Diastolic blood pressure 70 mm[Hg] 70 mm[Hg] [facility] Heart rate 66 /min 66 /min [facility] Body height 160 cm 160 cm [facility] Body weight 75.297 kg 75.297 kg [facility] Body mass index (BMI) [Ratio] 29.41 kg/m2 29.41 kg/m2 [facility] Oxygen saturation in Arterial blood by Pulse oximetry 97 % 97 % [facility] Body weight 166 [lb_av] 166 [lb_av] eCW1 ([facility]) Body height 63.5 [in_i] 63.5 [in_i] W1 ([facility]) Body mass index (BMI) [Ratio] 28.94 kg/m2 28.94 kg/m2 eCW1 ([facility]) Heart rate 79 /min 79 /min eCW1 ([facility]) Respiratory rate 18 /min 18 /min eCW1 ([facility]) Diastolic blood pressure 66 mm[Hg] 66 mm[Hg] eCW1 ([facility]) Body temperature 96.3 [degF] 96.3 [degF] eCW1 ( [facility]) Systolic blood pressure 140 mm[Hg] 140 mm[Hg] e CW1 ([facility]) Diastolic blood pressure 98 mm[Hg] 98 mm[Hg] MEDENT ([facility], [facility]) states she took her medication this morn ing Heart rate 74 /min 74 /min MEDENT ([facility]) Oxygen saturation in Arterial blood by Pulse oximetry 99 % 99 % MEDENT ([facility]) Systolic blood pressure 196 mm[Hg] 196 mm[Hg] M EDENT ([facility], [facility]) states she took her medication this morn ing Body temperature 97.9 [degF] 97.9 [degF] MEDENT ([facility]) Body weight 184.00 [lb_av] 184.00 [lb_av] MEDEN T ([facility], [facility]) Body height 65 [in_i] 65 [in_i] MEDMARIA INES ([facility] 5'5" Body mass index (BMI) [Ratio] 30.6 kg/m2 30.6 k g/m2 MEDMARIA INES ([facility]) Patient Treatment Plan of Care Planned Activity Planned Date Details Description Data Source (s) Levothyroxine Sodium 0.075 MG Oral Tablet 12/13/2020 12:00:00 AM ED T eCW1 ([facility]) Levothyroxine Sodium 0.075 MG Oral Tablet 12/13/2020 12:00:00 AM ED T eCW1 ([facility]) Levothyroxine Sodium 0.075 MG Oral Tablet 12/13/2020 12:00:00 AM ED T eCW1 ([facility]) duloxetine 60 MG Delayed Release Oral Capsule 12/12/2020 12:00:00 A M EDT eCW1 ([facility]) duloxetine 60 MG Delayed Release Oral Capsule 12/12/2020 12:00:00 A M EDT eCW1 ([facility]) duloxetine 60 MG Delayed Release Oral Capsule 12/12/2020 12:00:00 A M EDT eCW1 ([facility]) duloxetine 60 MG Delayed Release Oral Capsule 12/12/2020 12:00:00 A M EDT eCW1 ([facility]) Acetaminophen 325 MG / Hydrocodone Bitartrate 7.5 MG O ral Tablet 12/01/2020 12:00:00 AM EDT eCW1 [facility] Triamcinolone Acetonide 1 MG/ML Topical Cream 10/11/2020 12:00:00 A M EDT eCW1 ([facility]) Triamcinolone Acetonide 1 MG/ML Topical Cream 10/11/2020 12:00:00 A M EDT eCW1 ([facility]) Triamcinolone Acetonide 1 MG/ML Topical Cream 10/11/2020 12:00:00 A M EDT eCW1 ([facility]) Levothyroxine Sodium 0.05 MG Oral Tablet 10/04/2020 12:00:00 AM EDT eCW1 ([facility]) Levothyroxine Sodium 0.05 MG Oral Tablet 10/04/2020 12:00:00 AM EDT eCW1 ([facility]) Levothyroxine Sodium 0.05 MG Oral Tablet 10/04/2020 12:00:00 AM EDT eCW1 ([facility]) Acetaminophen 325 MG / Hydrocodone Bitartrate 7.5 MG O ral Tablet 10/03/2020 12:00:00 AM EDT eCW1 ([facility] Acetaminophen 325 MG / Hydrocodone Bitartrate 7.5 MG O ral Tablet 10/03/2020 12:00:00 AM EDT eCW1 ([facility]) Acetaminophen 325 MG / Hydrocodone Bitartrate 7.5 MG O ral Tablet 10/03/2020 12:00:00 AM EDT eCW1 ([facility]) Acetaminophen 325 MG / Hydrocodone Bitartrate 7.5 MG O ral Tablet 10/03/2020 12:00:00 AM EDT eCW1 ([facility]) Acetaminophen 325 MG / Hydrocodone Bitartrate 7.5 MG O ral Tablet 10/03/2020 12:00:00 AM EDT eCW1 ([facility]) Acetaminophen 325 MG / Hydrocodone Bitartrate 7.5 MG O ral Tablet 10/03/2020 12:00:00 AM EDT eCW1 ([facility]) Acetaminophen 325 MG / Hydrocodone Bitartrate 7.5 MG O ral Tablet 10/03/2020 12:00:00 AM EDT eCW1 ([facility]) Acetaminophen 325 MG / Hydrocodone Bitartrate 7.5 MG O ral Tablet 10/03/2020 12:00:00 AM EDT eCW1 ([facility]) Amlodipine 2.5 MG Oral Tablet 09/30/2020 12:00:00 AM EDT eCW1 ([facility]) Amlodipine 2.5 MG Oral Tablet 09/30/2020 12:00:00 AM EDT eCW1 ([facility]) Amlodipine 2.5 MG Oral Tablet 09/30/2020 12:00:00 AM EDT [facility] Amlodipine 2.5 MG Oral Tablet 09/30/2020 12:00:00 AM EDT eCW1 ([facility]) Amlodipine 2.5 MG Oral Tablet 09/30/2020 12:00:00 AM EDT eCW1 ([facility]) Amlodipine 2.5 MG Oral Tablet 09/30/2020 12:00:00 AM EDT eCW1 ([facility]) Acetaminophen 325 MG / Hydrocodone Bitartrate 7.5 MG O ral Tablet 09/12/2020 12:00:00 AM EDT eCW1 ([facility]) Acetaminophen 325 MG / Hydrocodone Bitartrate 7.5 MG O ral Tablet 09/12/2020 12:00:00 AM EDT eCW1 ([facility]) Acetaminophen 325 MG / Hydrocodone Bitartrate 7.5 MG O ral Tablet 09/12/2020 12:00:00 AM EDT eCW1 ([facility] hospital) Acetaminophen 325 MG / Hydrocodone Bitartrate 7.5 MG O ral Tablet 09/12/2020 12:00:00 AM EDT eCW1 (Critical access hospital) Hospital bed _ 08/22/2020 12:00:00 AM EDT eCW1 ([facility]) Hospital bed _ 08/22/2020 12:00:00 AM EDT eCW1 ([facility]) Hospital bed _ 08/22/2020 12:00:00 AM EDT eCW1 ([facility]) Hospital bed _ 08/22/2020 12:00:00 AM EDT eCW1 ([facility]) Hospital bed _ 08/22/2020 12:00:00 AM EDT eCW1 ([facility]) Hospital bed _ 08/22/2020 12:00:00 AM EDT eCW1 ([facility]) Hospital bed _ 08/22/2020 12:00:00 AM EDT eCW1 ([facility]) Hospital bed _ 08/22/2020 12:00:00 AM EDT eCW1 ([facility]) Hospital bed _ 08/22/2020 12:00:00 AM EDT eCW1 ([facility]) Acetaminophen 325 MG / Hydrocodone Bitartrate 7.5 MG O ral Tablet 08/02/2020 12:00:00 AM EDT eCW1 ([facility]) Acetaminophen 325 MG / Hydrocodone Bitartrate 7.5 MG O ral Tablet 08/02/2020 12:00:00 AM EDT eCW1 ([facility]) Blood Pressure Monitor - 07/29/2020 12:00:00 AM EDT eCW1 ([facility]) Blood Pressure Kit - 07/22/2020 12:00:00 AM EDT eCW1 ([facility]) Blood Pressure Kit - 07/22/2020 12:00:00 AM EDT eCW1 ([facility]) Blood Pressure Kit - 07/22/2020 12:00:00 AM EDT eCW1 ([facility]) Spironolactone 25 MG Oral Tablet 07/06/2020 12:00:00 AM EDT [facility] Losartan Potassium 100 MG Oral Tablet 07/06/2020 12:00:00 AM EDT [facility] empagliflozin 10 MG Oral Tablet [Jardiance] 07/05/2020 12:00:00 AM EDT eCW1 ([facility]) empagliflozin 10 MG Oral Tablet [Jardiance] 07/05/2020 12:00:00 AM EDT eCW1 ([facility]) empagliflozin 10 MG Oral Tablet [Jardiance] 07/05/2020 12:00:00 AM EDT eCW1 ([facility]) empagliflozin 10 MG Oral Tablet [Jardiance] 07/05/2020 12:00:00 AM EDT eCW1 ([facility]) empagliflozin 10 MG Oral Tablet [Jardiance] 07/05/2020 12:00:00 AM EDT eCW1 ([facility]) empagliflozin 10 MG Oral Tablet [Jardiance] 07/05/2020 12:00:00 AM EDT eCW1 ([facility]) empagliflozin 10 MG Oral Tablet [Jardiance] 07/05/2020 12:00:00 AM EDT eCW1 ([facility]) empagliflozin 10 MG Oral Tablet [Jardiance] 07/05/2020 12:00:00 AM EDT eCW1 ([facility]) empagliflozin 10 MG Oral Tablet [Jardiance] 07/05/2020 12:00:00 AM EDT eCW1 ([facility]) empagliflozin 10 MG Oral Tablet [Jardiance] 07/05/2020 12:00:00 AM EDT eCW1 ([facility]) empagliflozin 10 MG Oral Tablet [Jardiance] 07/05/2020 12:00:00 AM EDT eCW1 ([facility]) empagliflozin 25 MG Oral Tablet [Jardiance] 07/05/2020 12:00:00 AM EDT eCW1 ([facility]) empagliflozin 25 MG Oral Tablet [Jardiance] 07/05/2020 12:00:00 AM EDT eCW1 ([facility]) empagliflozin 10 MG Oral Tablet [Jardiance] 07/05/2020 12:00:00 AM EDT eCW1 ([facility]) empagliflozin 10 MG Oral Tablet [Jardiance] 07/05/2020 12:00:00 AM EDT eCW1 ([facility]) torsemide 10 MG Oral Tablet 06/08/2020 12:00:00 AM EDT [facility] Losartan Potassium 50 MG Oral Tablet 06/08/2020 12:00:00 AM EDT [facility] Acetaminophen 325 MG / Hydrocodone Bitartrate 5 MG Ora l Tablet 06/07/2020 12:00:00 AM EDT eCW1 ([facility]) Acetaminophen 325 MG / Hydrocodone Bitartrate 5 MG Ora l Tablet 06/07/2020 12:00:00 AM EDT eCW1 ([facility]) Acetaminophen 325 MG / Hydrocodone Bitartrate 5 MG Ora l Tablet 06/07/2020 12:00:00 AM EDT eCW1 ([facility]) Acetaminophen 325 MG / Hydrocodone Bitartrate 5 MG Ora l Tablet 06/07/2020 12:00:00 AM EDT eCW1 ([facility]) Acetaminophen 325 MG / Hydrocodone Bitartrate 5 MG Ora l Tablet 06/07/2020 12:00:00 AM EDT eCW1 ([facility]) Acetaminophen 325 MG / Hydrocodone Bitartrate 5 MG Ora l Tablet 06/07/2020 12:00:00 AM EDT eCW1 ([facility]) Acetaminophen 325 MG / Hydrocodone Bitartrate 5 MG Ora l Tablet 06/07/2020 12:00:00 AM EDT eCW1 ([facility]) 24 HR Metformin hydrochloride 500 MG Extended Release Oral Tablet 06/07/2020 12:00:00 AM EDT [facility] empagliflozin 10 MG Oral Tablet [Jardiance] 06/07/2020 12:00:00 AM EDT [facility] Levothyroxine Sodium 0.025 MG Oral Tablet 06/03/2020 12:00:00 AM ED T eCW1 ([facility]) Levothyroxine Sodium 0.025 MG Oral Tablet 06/03/2020 12:00:00 AM ED T eCW1 ([facility]) Levothyroxine Sodium 0.025 MG Oral Tablet 06/03/2020 12:00:00 AM ED T eCW1 ([facility]) Levothyroxine Sodium 0.025 MG Oral Tablet 06/03/2020 12:00:00 AM ED T eCW1 ([facility]) Levothyroxine Sodium 0.025 MG Oral Tablet 06/03/2020 12:00:00 AM ED T eCW1 ([facility]) Levothyroxine Sodium 0.025 MG Oral Tablet 06/03/2020 12:00:00 AM ED T eCW1 ([facility]) Levothyroxine Sodium 0.025 MG Oral Tablet 06/03/2020 12:00:00 AM ED T eCW1 ([facility]) Levothyroxine Sodium 0.025 MG Oral Tablet 06/03/2020 12:00:00 AM ED T eCW1 ([facility]) Levothyroxine Sodium 0.025 MG Oral Tablet 06/03/2020 12:00:00 AM ED T eCW1 ([facility]) Levothyroxine Sodium 0.025 MG Oral Tablet 06/03/2020 12:00:00 AM ED T eCW1 ([facility]) Losartan Potassium 50 MG Oral Tablet 05/17/2020 12:00:00 AM EDT eCW1 ([facility]) Losartan Potassium 50 MG Oral Tablet 05/17/2020 12:00:00 AM EDT eCW1 ([facility]) Losartan Potassium 50 MG Oral Tablet 05/17/2020 12:00:00 AM EDT eCW1 ([facility]) Losartan Potassium 50 MG Oral Tablet 05/17/2020 12:00:00 AM EDT eCW1 ([facility]) Losartan Potassium 100 MG Oral Tablet 05/17/2020 12:00:00 AM EDT eCW1 ([facility]) Losartan Potassium 100 MG Oral Tablet 05/17/2020 12:00:00 AM EDT eCW1 ([facility]) Losartan Potassium 100 MG Oral Tablet 05/17/2020 12:00:00 AM EDT eCW1 ([facility]) Losartan Potassium 100 MG Oral Tablet 05/17/2020 12:00:00 AM EDT eCW1 ([facility]) Losartan Potassium 100 MG Oral Tablet 05/17/2020 12:00:00 AM EDT eCW1 ([facility]) Losartan Potassium 100 MG Oral Tablet 05/17/2020 12:00:00 AM EDT eCW1 ([facility]) Losartan Potassium 100 MG Oral Tablet 05/17/2020 12:00:00 AM EDT eCW1 ([facility]) Losartan Potassium 50 MG Oral Tablet 05/17/2020 12:00:00 AM EDT [facility] Losartan Potassium 100 MG Oral Tablet 05/17/2020 12:00:00 AM EDT eCW1 ([facility]) Losartan Potassium 100 MG Oral Tablet 05/17/2020 12:00:00 AM EDT eCW1 ([facility]) Acetaminophen 325 MG / Hydrocodone Bitartrate 5 MG Ora l Tablet 05/12/2020 12:00:00 AM EDT eCW1 ([facility]) empagliflozin 10 MG Oral Tablet [Jardiance] 04/21/2020 12:00:00 AM EST eCW1 ([facility]) empagliflozin 10 MG Oral Tablet [Jardiance] 04/21/2020 12:00:00 AM EST eCW1 ([facility]) empagliflozin 10 MG Oral Tablet [Jardiance] 04/21/2020 12:00:00 AM EST eCW1 ([facility]) empagliflozin 10 MG Oral Tablet [Jardiance] 04/21/2020 12:00:00 AM EST eCW1 ([facility]) empagliflozin 10 MG Oral Tablet [Jardiance] 04/21/2020 12:00:00 AM EST eCW1 ([facility]) carvedilol 6.25 MG Oral Tablet 04/15/2020 12:00:00 AM EST [facility] Acetaminophen 325 MG / Hydrocodone Bitartrate 5 MG Ora l Tablet 04/11/2020 12:00:00 AM EST eCW1 ([facility]) Acetaminophen 325 MG / Hydrocodone Bitartrate 5 MG Ora l Tablet 04/11/2020 12:00:00 AM EST eCW1 ([facility]) Acetaminophen 325 MG / Hydrocodone Bitartrate 5 MG Ora l Tablet 04/11/2020 12:00:00 AM EST eCW1 ([facility]) Acetaminophen 325 MG / Hydrocodone Bitartrate 5 MG Ora l Tablet 04/11/2020 12:00:00 AM EST eCW1 ([facility]) Acetaminophen 325 MG / Hydrocodone Bitartrate 5 MG Ora l Tablet 04/11/2020 12:00:00 AM EST eCW1 ([facility]) Acetaminophen 325 MG / Hydrocodone Bitartrate 5 MG Ora l Tablet 04/11/2020 12:00:00 AM EST eCW1 ([facility]) Acetaminophen 325 MG / Hydrocodone Bitartrate 5 MG Ora l Tablet 04/11/2020 12:00:00 AM EST eCW1 ([facility]) Amlodipine 2.5 MG Oral Tablet 04/04/2020 12:00:00 AM EST [facility] Amlodipine 2.5 MG Oral Tablet 04/04/2020 12:00:00 AM EST eCW1 ([facility]) Amlodipine 2.5 MG Oral Tablet 04/04/2020 12:00:00 AM EST eCW1 ([facility]) Amlodipine 2.5 MG Oral Tablet 04/04/2020 12:00:00 AM EST eCW1 ([facility]) Amlodipine 2.5 MG Oral Tablet 04/04/2020 12:00:00 AM EST eCW1 ([facility]) Amlodipine 2.5 MG Oral Tablet 04/04/2020 12:00:00 AM EST eCW1 ([facility]) Amlodipine 2.5 MG Oral Tablet 04/04/2020 12:00:00 AM EST eCW1 ([facility]) Amlodipine 2.5 MG Oral Tablet 04/04/2020 12:00:00 AM EST eCW1 ([facility]) Amlodipine 2.5 MG Oral Tablet 04/04/2020 12:00:00 AM EST eCW1 ([facility]) Amlodipine 2.5 MG Oral Tablet 04/04/2020 12:00:00 AM EST eCW1 ([facility]) Potassium Chloride 10 MEQ Extended Release Oral Tablet 04/02/2020 12:00:00 AM EST [facility] 24 HR Metformin hydrochloride 500 MG Extended Release Oral Tablet 03/19/2020 12:00:00 AM EST [facility] Sucralfate 1000 MG Oral Tablet 03/08/2020 12:00:00 AM EST [facility] Sucralfate 1000 MG Oral Tablet [Carafate] 03/08/2020 12:00:00 AM ES T eCW1 ([facility]) Sucralfate 1000 MG Oral Tablet [Carafate] 03/08/2020 12:00:00 AM ES T eCW1 ([facility]) Sucralfate 1000 MG Oral Tablet [Carafate] 03/08/2020 12:00:00 AM ES T eCW1 ([facility]) Sucralfate 1000 MG Oral Tablet [Carafate] 03/08/2020 12:00:00 AM ES T eCW1 ([facility]) Sucralfate 1000 MG Oral Tablet [Carafate] 03/08/2020 12:00:00 AM ES T eCW1 ([facility]) Sucralfate 1000 MG Oral Tablet [Carafate] 03/08/2020 12:00:00 AM ES T eCW1 ([facility]) Acetaminophen 325 MG / Hydrocodone Bitartrate 5 MG Ora l Tablet 02/25/2020 12:00:00 AM EST eCW1 ([facility]) Acetaminophen 325 MG / Hydrocodone Bitartrate 5 MG Ora l Tablet 02/25/2020 12:00:00 AM EST eCW1 ([facility]) Acetaminophen 325 MG / Hydrocodone Bitartrate 5 MG Ora l Tablet 02/25/2020 12:00:00 AM EST eCW1 ([facility]) torsemide 10 MG Oral Tablet 02/24/2020 12:00:00 AM EST eCW1 ([facility]) torsemide 10 MG Oral Tablet 02/24/2020 12:00:00 AM EST eCW1 ([facility]) torsemide 10 MG Oral Tablet 02/24/2020 12:00:00 AM EST eCW1 ([facility]) torsemide 10 MG Oral Tablet 02/24/2020 12:00:00 AM EST eCW1 ([facility]) torsemide 20 MG Oral Tablet 02/24/2020 12:00:00 AM EST eCW1 ([facility]) torsemide 20 MG Oral Tablet 02/24/2020 12:00:00 AM EST eCW1 ([facility]) torsemide 20 MG Oral Tablet 02/24/2020 12:00:00 AM EST eCW1 ([facility]) torsemide 20 MG Oral Tablet 02/24/2020 12:00:00 AM EST eCW1 ([facility]) torsemide 20 MG Oral Tablet 02/24/2020 12:00:00 AM EST eCW1 ([facility]) torsemide 20 MG Oral Tablet 02/24/2020 12:00:00 AM EST eCW1 ([facility]) torsemide 20 MG Oral Tablet 02/24/2020 12:00:00 AM EST eCW1 ([facility]) torsemide 20 MG Oral Tablet 02/24/2020 12:00:00 AM EST eCW1 ([facility]) torsemide 20 MG Oral Tablet 02/24/2020 12:00:00 AM EST eCW1 ([facility]) torsemide 20 MG Oral Tablet 02/24/2020 12:00:00 AM EST eCW1 ([facility]) torsemide 20 MG Oral Tablet 02/24/2020 12:00:00 AM EST eCW1 ([facility]) torsemide 20 MG Oral Tablet 02/24/2020 12:00:00 AM EST eCW1 ([facility]) torsemide 20 MG Oral Tablet 02/24/2020 12:00:00 AM EST eCW1 ([facility]) torsemide 20 MG Oral Tablet 02/24/2020 12:00:00 AM EST eCW1 ([facility]) torsemide 20 MG Oral Tablet 02/24/2020 12:00:00 AM EST eCW1 ([facility]) torsemide 20 MG Oral Tablet 02/24/2020 12:00:00 AM EST eCW1 ([facility]) torsemide 20 MG Oral Tablet 02/24/2020 12:00:00 AM EST eCW1 ([facility]) torsemide 20 MG Oral Tablet 02/24/2020 12:00:00 AM EST eCW1 ([facility]) torsemide 20 MG Oral Tablet 02/24/2020 12:00:00 AM EST eCW1 ([facility]) torsemide 20 MG Oral Tablet 02/24/2020 12:00:00 AM EST eCW1 ([facility]) Walker - 02/15/2020 12:00:00 AM EST e CW1 ([facility]) Walker - 02/15/2020 12:00:00 AM EST e CW1 ([facility]) Walker - 02/15/2020 12:00:00 AM EST e CW1 ([facility]) Test Strips - 02/09/2020 12:00:00 AM EST eCW1 ([facility]) Test Strips - 02/09/2020 12:00:00 AM EST eCW1 ([facility]) Test Strips - 02/09/2020 12:00:00 AM EST eCW1 ([facility]) Test Strips - 02/09/2020 12:00:00 AM EST eCW1 ([facility]) Test Strips - 02/09/2020 12:00:00 AM EST eCW1 ([facility]) Test Strips - 02/09/2020 12:00:00 AM EST eCW1 ([facility]) 3 ML insulin detemir 100 UNT/ML Pen Injector [Levemir] 02/03/2020 12:00:00 AM EST eCW1 ([facility]) 3 ML insulin detemir 100 UNT/ML Pen Injector [Levemir] 02/03/2020 12:00:00 AM EST eCW1 ([facility]) 3 ML insulin detemir 100 UNT/ML Pen Injector [Levemir] 02/03/2020 12:00:00 AM EST eCW1 ([facility]) 3 ML insulin detemir 100 UNT/ML Pen Injector [Levemir] 02/03/2020 12:00:00 AM EST eCW1 ([facility]) 3 ML insulin detemir 100 UNT/ML Pen Injector [Levemir] 02/03/2020 12:00:00 AM EST eCW1 ([facility]) 3 ML insulin detemir 100 UNT/ML Pen Injector [Levemir] 02/03/2020 12:00:00 AM EST eCW1 ([facility]) 3 ML insulin detemir 100 UNT/ML Pen Injector [Levemir] 02/03/2020 12:00:00 AM EST eCW1 ([facility]) 3 ML insulin detemir 100 UNT/ML Pen Injector [Levemir] 02/03/2020 12:00:00 AM EST eCW1 ([facility]) 3 ML insulin detemir 100 UNT/ML Pen Injector [Levemir] 02/03/2020 12:00:00 AM EST eCW1 ([facility]) 3 ML insulin detemir 100 UNT/ML Pen Injector [Levemir] 02/03/2020 12:00:00 AM EST eCW1 ([facility]) 3 ML insulin detemir 100 UNT/ML Pen Injector [Levemir] 02/03/2020 12:00:00 AM EST eCW1 ([facility]) 3 ML insulin detemir 100 UNT/ML Pen Injector [Levemir] 02/03/2020 12:00:00 AM EST eCW1 ([facility]) 3 ML insulin detemir 100 UNT/ML Pen Injector [Levemir] 02/03/2020 12:00:00 AM EST eCW1 ([facility]) 3 ML insulin detemir 100 UNT/ML Pen Injector [Levemir] 02/03/2020 12:00:00 AM EST eCW1 ([facility]) 3 ML insulin detemir 100 UNT/ML Pen Injector [Levemir] 02/03/2020 12:00:00 AM EST eCW1 ([facility]) 3 ML insulin detemir 100 UNT/ML Pen Injector [Levemir] 02/03/2020 12:00:00 AM EST eCW1 ([facility]) 3 ML insulin detemir 100 UNT/ML Pen Injector [Levemir] 02/03/2020 12:00:00 AM EST eCW1 ([facility] hospital) 3 ML insulin detemir 100 UNT/ML Pen Injector [Levemir] 02/03/2020 12:00:00 AM EST eCW1 ([facility] hospital) 3 ML insulin detemir 100 UNT/ML Pen Injector [Levemir] 02/03/2020 12:00:00 AM EST eCW1 ([facility] hospital) 3 ML insulin detemir 100 UNT/ML Pen Injector [Levemir] 02/03/2020 12:00:00 AM EST eCW1 ([facility] hospital) 3 ML insulin detemir 100 UNT/ML Pen Injector [Levemir] 02/03/2020 12:00:00 AM EST eCW1 ([facility] hospital) 3 ML insulin detemir 100 UNT/ML Pen Injector [Levemir] 02/03/2020 12:00:00 AM EST eCW1 ([facility] hospital) 3 ML insulin detemir 100 UNT/ML Pen Injector [Levemir] 02/03/2020 12:00:00 AM EST eCW1 ([facility] hospital) 3 ML insulin detemir 100 UNT/ML Pen Injector [Levemir] 02/03/2020 12:00:00 AM EST eCW1 ([facility] hospital) 3 ML insulin detemir 100 UNT/ML Pen Injector [Levemir] 02/03/2020 12:00:00 AM EST eCW1 ([facility] hospital) 3 ML insulin detemir 100 UNT/ML Pen Injector [Levemir] 02/03/2020 12:00:00 AM EST eCW1 ([facility] hospital) 3 ML insulin detemir 100 UNT/ML Pen Injector [Levemir] 02/03/2020 12:00:00 AM EST eCW1 ([facility]) 3 ML insulin detemir 100 UNT/ML Pen Injector [Levemir] 02/03/2020 12:00:00 AM EST eCW1 ([facility] hospital) 3 ML insulin detemir 100 UNT/ML Pen Injector [Levemir] 02/03/2020 12:00:00 AM EST eCW1 ([facility]) 3 ML insulin detemir 100 UNT/ML Pen Injector [Levemir] 02/03/2020 12:00:00 AM EST eCW1 ([facility]) 3 ML insulin detemir 100 UNT/ML Pen Injector [Levemir] 02/03/2020 12:00:00 AM EST eCW1 ([facility]) 3 ML insulin detemir 100 UNT/ML Pen Injector [Levemir] 02/03/2020 12:00:00 AM EST eCW1 ([facility]) 3 ML insulin detemir 100 UNT/ML Pen Injector [Levemir] 02/03/2020 12:00:00 AM EST eCW1 ([facility]) 3 ML insulin detemir 100 UNT/ML Pen Injector [Levemir] 02/03/2020 12:00:00 AM EST eCW1 ([facility]) 3 ML insulin detemir 100 UNT/ML Pen Injector [Levemir] 02/03/2020 12:00:00 AM EST eCW1 ([facility]) 3 ML insulin detemir 100 UNT/ML Pen Injector [Levemir] 02/03/2020 12:00:00 AM EST eCW1 ([facility]) 3 ML insulin detemir 100 UNT/ML Pen Injector [Levemir] 02/03/2020 12:00:00 AM EST eCW1 ([facility] hospital) 3 ML insulin detemir 100 UNT/ML Pen Injector [Levemir] 02/03/2020 12:00:00 AM EST eCW1 ([facility]) Amlodipine 5 MG Oral Tablet 02/03/2020 12:00:00 AM EST eCW1 ([facility]) 3 ML insulin detemir 100 UNT/ML Pen Injector [Levemir] 02/03/2020 12:00:00 AM EST eCW1 ([facility]) Amlodipine 5 MG Oral Tablet 02/03/2020 12:00:00 AM EST eCW1 ([facility]) 3 ML insulin detemir 100 UNT/ML Pen Injector [Levemir] 02/03/2020 12:00:00 AM EST eCW1 ([facility]) 3 ML insulin detemir 100 UNT/ML Pen Injector [Levemir] 02/03/2020 12:00:00 AM EST eCW1 ([facility]) Amlodipine 5 MG Oral Tablet 02/03/2020 12:00:00 AM EST eCW1 ([facility]) 3 ML insulin detemir 100 UNT/ML Pen Injector [Levemir] 02/03/2020 12:00:00 AM EST eCW1 ([facility]) Amlodipine 5 MG Oral Tablet 02/03/2020 12:00:00 AM EST eCW1 ([facility]) 3 ML insulin detemir 100 UNT/ML Pen Injector [Levemir] 02/03/2020 12:00:00 AM EST eCW1 ([facility]) 3 ML insulin detemir 100 UNT/ML Pen Injector [Levemir] 02/03/2020 12:00:00 AM EST eCW1 ([facility]) Amlodipine 5 MG Oral Tablet 02/03/2020 12:00:00 AM EST eCW1 ([facility]) 3 ML insulin detemir 100 UNT/ML Pen Injector [Levemir] 02/03/2020 12:00:00 AM EST eCW1 ([facility] hospital) Amlodipine 5 MG Oral Tablet 02/03/2020 12:00:00 AM EST eCW1 ([facility]) Hydrochlorothiazide 12.5 MG Oral Capsule 02/02/2020 12:00:00 AM EST [facility] ferrous sulfate 325 MG Delayed Release Oral Tablet 01/26/2020 12 :00:00 AM EST eCW1 ([facility]) [place] 5/16" 01/26/2020 12:00:00 AM EST eCW1 ([facility]) ferrous sulfate 325 MG Delayed Release Oral Tablet 01/26/2020 12 :00:00 AM EST eCW1 ([facility]) [place] 07/10" 01/26/2020 12:00:00 AM EST eCW1 ([facility]) ferrous sulfate 325 MG Delayed Release Oral Tablet 01/26/2020 12 :00:00 AM EST eCW1 ([facility]) [place] 07/10" 01/26/2020 12:00:00 AM EST eCW1 ([facility]) Lancets - 12/07/2019 12:00:00 AM EDT e CW1 ([facility]) Lancets - 12/07/2019 12:00:00 AM EDT e CW1 ([facility]) Lancets - 12/07/2019 12:00:00 AM EDT e CW1 ([facility]) Lancets - 12/07/2019 12:00:00 AM EDT e CW1 ([facility]) Lancets - 12/07/2019 12:00:00 AM EDT e CW1 ([facility]) Lancets - 12/07/2019 12:00:00 AM EDT e CW1 ([facility]) Glucometer 12/07/2019 12:00:00 AM EDT e CW1 ([facility]) Lancets - 12/07/2019 12:00:00 AM EDT e CW1 ([facility]) Lancets - 12/07/2019 12:00:00 AM EDT e CW1 ([facility]) Lancets - 12/07/2019 12:00:00 AM EDT e CW1 ([facility]) Lancets - 12/07/2019 12:00:00 AM EDT e CW1 ([facility]) Lancets - 12/07/2019 12:00:00 AM EDT e CW1 ([facility]) Glucometer 12/07/2019 12:00:00 AM EDT e CW1 ([facility]) Lancets - 12/07/2019 12:00:00 AM EDT e CW1 ([facility]) Glucometer 12/07/2019 12:00:00 AM EDT e CW1 ([facility]) Lancets - 12/07/2019 12:00:00 AM EDT e CW1 ([facility]) Glucometer 12/07/2019 12:00:00 AM EDT e CW1 ([facility]) Glucometer 12/07/2019 12:00:00 AM EDT e CW1 ([facility]) Lancets - 12/07/2019 12:00:00 AM EDT e CW1 ([facility]) Glucometer 12/07/2019 12:00:00 AM EDT e CW1 ([facility]) Lancets - 12/07/2019 12:00:00 AM EDT e CW1 ([facility]) Glucometer 12/07/2019 12:00:00 AM EDT e CW1 ([facility]) Lancets - 12/07/2019 12:00:00 AM EDT e CW1 ([facility]) Glucometer 12/07/2019 12:00:00 AM EDT e CW1 ([facility]) Lancets - 12/07/2019 12:00:00 AM EDT e CW1 ([facility]) Acetaminophen 325 MG / Hydrocodone Bitartrate 5 MG Ora l Tablet 12/03/2019 12:00:00 AM EDT eCW1 [facility] Acetaminophen 325 MG / Hydrocodone Bitartrate 5 MG Ora l Tablet 12/03/2019 12:00:00 AM EDT eCW1 ([facility]) Acetaminophen 325 MG / Hydrocodone Bitartrate 5 MG Ora l Tablet 12/03/2019 12:00:00 AM EDT eCW1 ([facility]) Acetaminophen 325 MG / Hydrocodone Bitartrate 5 MG Ora l Tablet 12/03/2019 12:00:00 AM EDT eCW1 ([facility]) Acetaminophen 325 MG / Hydrocodone Bitartrate 5 MG Ora l Tablet 12/03/2019 12:00:00 AM EDT eCW1 ([facility]) Acetaminophen 325 MG / Hydrocodone Bitartrate 5 MG Ora l Tablet 12/03/2019 12:00:00 AM EDT eCW1 ([facility]) Acetaminophen 325 MG / Hydrocodone Bitartrate 5 MG Ora l Tablet 12/03/2019 12:00:00 AM EDT eCW1 ([facility]) Acetaminophen 325 MG / Hydrocodone Bitartrate 5 MG Ora l Tablet 12/03/2019 12:00:00 AM EDT eCW1 ([facility]) Acetaminophen 325 MG / Hydrocodone Bitartrate 5 MG Ora l Tablet 12/03/2019 12:00:00 AM EDT eCW1 ([facility]) Acetaminophen 325 MG / Hydrocodone Bitartrate 5 MG Ora l Tablet 12/03/2019 12:00:00 AM EDT eCW1 ([facility]) gabapentin 100 MG Oral Capsule 11/19/2019 12:00:00 AM EDT [facility] torsemide 20 MG Oral Tablet 11/19/2019 12:00:00 AM EDT [facility] potassium chloride SA (K-DUR,KLOR-CON) 10 MEQ tablet 12:00:00 AM EDT [facility] dapagliflozin 5 MG Oral Tablet [Farxiga] 11/10/2019 12:00:00 AM EDT [facility] 24 HR Metformin hydrochloride 500 MG Extended Release Oral Tablet 11/02/2019 12:00:00 AM EDT [facility] carvedilol 3.125 MG Oral Tablet 09/23/2019 12:00:00 AM EDT [facility] Nystatin 716256 UNT/ML Oral Suspension 07/02/2019 12:00:00 AM EDT [facility] Losartan Potassium 100 MG Oral Tablet 12/10/2018 12:00:00 AM EDT [facility] dapagliflozin 10 MG Oral Tablet [Farxiga] 10/31/2018 12:00:00 AM ED T [facility] Furosemide 20 MG Oral Tablet 06/04/2018 12:00:00 AM EDT [facility] 3 ML Insulin Glargine 100 UNT/ML Pen Injector 07/12/2017 12:00:00 A M EDT [facility] [place]-3 Acid Ethyl Esters (SNF) 1000 MG Oral Capsule 011 12:00:00 AM EDT [facility]
--- NOTE | 2020-12-31 12:50 | REP ---
INDICATION: fall. COMPARISON: 12/24/2020, 09/17/2020, 08/27/2020. TECHNIQUE: Axial soft tissue and bone windows with coronal reconstructions provided FINDINGS: Lateral ventricles are midline symmetric and proportionate to the mild diffuse cerebral atrophy. That atrophy is greatest in the frontal and temporal lobes. Third and 4th ventricles are proportionate as well basal ganglia were symmetric there is heterogeneous low-attenuation white matter the did in the periventricular, centrum semiovale and subcortical regions bilaterally representing chronic small vessel ischemic disease. I see no acute infarct, intra or extra-axial hemorrhage, mass or mass effect. The atrophy is greatest in the temporal and frontal lobes. Brainstem was unremarkable. Is mild cerebellar atrophy but no posterior fossa hemorrhage or mass. The basal cisterns are intact. There are calcifications in the carotid siphons. Mastoids, visualized sinuses, skull base and calvarium are intact and without evidence of a fracture. Appears to be some swelling in the high posterior right parietal region where there was previous hematoma on the 12/24/2020 exam. IMPRESSION: 1. Ventriculomegaly and cortical atrophy are proportionate and age appropriate with no intracranial hemorrhage, vascular territory infarct, mass or mass effect. 2. Small right posterior parietal scalp hematoma with appearance similar to the previous study on 12/24/2020. There is no evidence of a skull fracture and the skull base, mastoids and sinuses are a becker were unremarkable. 3. Cerebellar atrophy noted with the brainstem unremarkable and no posterior fossa bleed. No new or acute finding. <Electronically signed by Jake Duarte > 12/31/20 [id number]
--- NOTE | 2020-12-31 12:59 | REP ---
INDICATION: CHEST PAIN. COMPARISON: 12/25/2020 CTA chest and AP CXR TECHNIQUE: AP supine FINDINGS: Lung lloyd over penetrated. No definite infiltrate, layering effusion, atelectasis or mass. Heart size magnified by AP supine technique some mild left ventricular configuration. The aorta is calcified at the arch but without aneurysm. Airway intact. No widening of the mediastinum. Degenerative changes in the spine and shoulders again seen. IMPRESSION: 1. No acute infiltrate, edema, atelectasis or mass. Left ventricular configuration of the heart but no gross cardiomegaly. Heart size magnified by AP supine technique. <Electronically signed by Jake Duarte > 12/31/20 [id number]
--- NOTE | 2020-12-31 13:03 | REP ---
INDICATION: CHEST PAIN. COMPARISON: Bone windows CT A/P 12/25/2020, x-ray 03/17/2020 TECHNIQUE: AP pelvis view. FINDINGS: Pelvic ring is intact. Sacral ala and foramina grossly intact. There are vascular calcifications of the aortoiliac system SI joints grossly intact the iliac wings, pelvic ring, symphysis pubis and pubic rami unremarkable. Hip joints appeared symmetric without gross narrowing of the joint space. There are some hip degenerative changes but stable in appearance. IMPRESSION: 1. Some degenerative changes lower lumbar spine and hips but without visible fracture or other acute bony finding. <Electronically signed by Jake Duarte > 12/31/20 1300
--- NOTE | 2020-12-31 13:06 | REP ---
INDICATION: CHEST PAIN. COMPARISON: 05/15/2020 TECHNIQUE: AP and frogleg views. FINDINGS: Hip joint space is preserved. Acetabulum is intact. Left SI joint, visualized portion of iliac bone ischia and symphysis pubis unremarkable. There is no evidence of AVN or fracture of the femoral head. The femoral neck, trochanters and sub trochanteric femoral shaft were unremarkable. Vascular calcifications throughout the femoral arteries. IMPRESSION: 1. No hip fracture, subluxation or focal lesion. Stable exam from 05/15/2020. <Electronically signed by Jake Duarte > 12/31/20 1304
--- NOTE | 2020-12-31 13:08 | REP ---
INDICATION: CHEST PAIN. COMPARISON: Left knee 12/24/2020 femur 10/11/2017. TECHNIQUE: Two views of the mid to distal femur. (Proximal femur included with the hip series.) FINDINGS: Femoral shaft was unremarkable femoral condyles intact without fracture there is vascular calcification throughout the femoral and popliteal artery. That portion of tibial plateau and proximal fibula were unremarkable. IMPRESSION: 1. No fracture the femoral shaft, condyles or other visible bony structures. <Electronically signed by Jake Duarte > 12/31/20 2040
--- NOTE | 2020-12-31 13:10 | REP ---
INDICATION: CHEST PAIN. COMPARISON: Left knee 12/24/2020. TECHNIQUE: Four views to encompass the entirety of the tibia and fibula in 2 projections. FINDINGS: Tibial spine shows spurring. There is no narrowing of the medial or lateral joint compartments at the knee. No depression of the tibial plateau. The proximal tibiofibular articulation was unremarkable. Patella was grossly intact. Femoral condyles intact. No visible joint effusion. Tibia and fibula shaft are without fracture. Some vascular calcification arteries in the calf. The plantar calcaneal spur. IMPRESSION: 1. Some degenerative changes at the knee and at the plantar calcaneal heel spur but no visible or displaced tibial or fibular fracture. Arterial calcifications in the calf. <Electronically signed by Jake Duarte > 12/31/20 [id number]
--- NOTE | 2020-12-31 13:14 | REP ---
INDICATION: CHEST PAIN. COMPARISON: 12/24/2020 TECHNIQUE: Four views FINDINGS: There is diffuse soft tissue swelling about the ankle and lower leg. Vascular calcifications are seen in arteries in the distal lower leg and ankle. There is a plantar and Achilles insertional spur evident on the lateral view mortise joint with symmetric and preserved without evidence for talar dome osteochondral defect. No visible displaced fracture of the distal tibia or fibula. Subtalar joints are intact. Talonavicular and calcaneocuboid joints were unremarkable. Visible tarsal bones and metatarsal articulations intact. IMPRESSION: 1. Heel spurs, diffuse soft tissue swelling about the ankle, arterial calcifications throughout the lower leg and ankle region noted. Although the soft tissue swelling is greater than 12/24/2020, no visible or displaced fracture, avulsion, disruption of the mortise joint or other acute finding. <Electronically signed by Jake Duarte > 12/31/20 [id number]
[2020-12-31] MEDS: NS 1,000 ML IV SCH ×3 (13:34→13:45)
[2020-12-31 13:46] LABS: BASO # 0.1 10^3/uL (0.0-0.2); BASO % 1.3 % (0.0-1.0); EOS # 0.3 10^3/uL (0.0-0.5); EOS % 3.7 % (0.0-3.0); HEMATOCRIT 40.7 % (36.0-47.0); HEMOGLOBIN 12.9 g/dl (12.0-15.5); LYMPH # 2.2 10^3/uL (1.5-5.0); LYMPH % 33.3 % (24.0-44.0); MEAN CORPUSCULAR HEMOGLOBIN 28.9 pg (27.0-33.0); MEAN CORPUSCULAR HGB CONC 31.7 g/dl (32.0-36.5); MEAN CORPUSCULAR VOLUME 91.3 fl (80.0-96.0); MONO # 0.8 10^3/uL (0.0-0.8); MONO % 12.1 % (2.0-8.0); NEUTROPHILS # 3.3 10^3/uL (1.5-8.5); NEUTROPHILS % 49.3 % (36.0-66.0); PLATELET COUNT, AUTOMATED 163 10^3/uL (150-450); RED BLOOD COUNT 4.46 10^6/uL (4.00-5.40); WHITE BLOOD COUNT 6.7 10^3/uL (4.0-10.0)
[2020-12-31 14:19] LABS: ALBUMIN 2.8 GM/DL (3.2-5.2); ALT/SGPT 32 U/L (12-78); BILIRUBIN,DIRECT 0.2 MG/DL (0.0-0.2); BILIRUBIN,TOTAL 0.8 MG/DL (0.2-1.0); BLOOD UREA NITROGEN 22 MG/DL (7-18); CALCIUM LEVEL 9.2 MG/DL (8.8-10.2); CARBON DIOXIDE LEVEL 21 MEQ/L (21-32); CHLORIDE LEVEL 112 MEQ/L (98-107); CK-MB VALUE MASS 1.4 NG/ML (<3.6); CPK CREATINE PHOSPHOKINASE 77 U/L (26-192); CREATININE FOR GFR 0.67 MG/DL (0.55-1.30); FREE T4 1.57 NG/DL (0.76-1.46); GLOMERULAR FILTRATION RATE > 60.0 (>45); GLUCOSE, FASTING 181 MG/DL (70-100); LIPASE 109 U/L (73-393); MB/CK RELATIVE INDEX 1.82 (< OR =4); SODIUM LEVEL 142 MEQ/L (136-145); TOTAL PROTEIN 6.3 GM/DL (6.4-8.2); TROPONIN I 0.19 NG/ML (< 0.10)
[2020-12-31] MEDS ORDERED: MORPHINE 2 MG/ML 1ML VIAL (J2270) IV ONE (14:25)
[2020-12-31] MEDS ORDERED: HYDR10TAB PO (14:48)
[2020-12-31] MEDS ORDERED: ISOS20TAB PO (14:48)
[2020-12-31] MEDS ORDERED: ATEN25TA PO (14:48)
[2020-12-31] MEDS ORDERED: DEXTROSE 50% 50 ML SYRINGE IV PRN (15:30)
[2020-12-31] MEDS ORDERED: GLUCOSE 4GM CHEW TABLET PO PRN (15:30)
[2020-12-31] MEDS ORDERED: ACETAMINOPHEN TAB 650MG DOSE (2X325MG) PO PRN (15:30)
[2020-12-31] MEDS ORDERED: MOM 30ML SUSPENSION UDC PO PRN (15:30)
[2020-12-31] MEDS ORDERED: MAALOX 30 ML SUSP *UDC PO PRN (15:30)
[2020-12-31] MEDS ORDERED: GLUCAGON INJ 1MG VIAL SC PRN (15:30)
[2020-12-31 15:31] LABS: RSV AMPLIFICATION NEGATIVE (NEGATIVE)
--- NOTE | 2020-12-31 15:40 | HPEPDOC ---
[facility] Medical History & Physical Date of Admission Dec 31, 2020 Date of Service: Dec 31, 2020 History and Physical Chief complaint: Who presented to the hospital after she had fallen this morning History of present illness: Patient is a 70-year-old female with a PMHx of CAD s/p stent (2018), Diastolic CHF, HTN, IDDM2, DLP, Hypothyroidism, ARNOLD, CKD3, Fibromyalgia, and G ERD and a recent admission after she had fallen and sprained her L ankle. Patient was at [facility] from 12/25-12/30 after she had fallen at home and sustained a left ankle fracture. Patient with physical therapy and was cleared for discharge home. Today, patient has presented to the ER after she had fallen at home this morning. Patient reported that at 8AM she was ambulating with her walker and she turned to get into chair. She reported her left knee gave out and she fell in on her bottom. Patient denies any head trauma or loss of consciousness. She was unable to get up , so she contacted EMS for further assistance. Upon arrival to emergency room, patient was reporting significant left knee to left ankle pain. Some improvement noted with Morphine, and aggregated with mov ement and walking. She denies chest pain, shortness of breath, cough. Denies nausea, vomiting, abd ominal pain, constipation, diarrhea, or urinary discomfort. Patient reports her last bowel movement was yesterday. Patient denies any fevers or chills. Reports that her appetite has been poor and over the last 1 year shes lost more than 80 pounds. 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 Review of Systems: 10 point review of systems complete, all negative otherwise stated in HPI Physical exam: - Vitals: BP [180/102], HR [86], RR [20], Sat [96%RA], Temp [98.0F] - General: Lying in bed, No acute distress, Speaking in full sentences, AAOx3 - HEENT: NC, AT, PERRLA - CVS: RRR, +S1S2 - Lungs: Fair air entry bilaterally, No appreciable wheezing / rales / rhonchi - Abdomen: Soft, Non-distended, Non-tender - Extremities: RLE without edema, LLE with walking boot in place; after removal there was trace edema around ankle and foot - Neuro: No focal motor or sensory deficit - Skin: No visible rashes Labs: XR L Ankle 12/31: Heel spurs, diffuse soft tissue swelling about the ankle, arterial calcifications throughout the lower leg and ankle region noted. Although the soft tissue swelling is greater than 12/24/2020, no visible or displaced fracture, avulsion, disruption of the mortise joint or other acute finding. XR Portable Chest 12/31: 1. No acute infiltrate, edema, atelectasis or mass. Left ventricular configuration of the heart but no gross cardiomegaly. Heart size magnified by AP supine technique. XR Femur 12/31: No fracture the femoral shaft, condyles or other visible bony structures. XR Hip 12/31: No hip fracture, subluxation or focal lesion. Stable exam from 05/15/2020. XR Pelvis 12/31: Some degenerative changes lower lumbar spine and hips but without visible fracture or other acute bony finding. XR Tib/Fib 12/31: Some degenerative changes at the knee and at the plantar calcaneal heel spur but no visible or displaced tibial or fibular fracture. Arterial calcifications in the calf. CT Head 12/31: 1. Ventriculomegaly and cortical atrophy are proportionate and age appropriate with no intracranial hemorrhage, vascular territory infarct, mass or mass effe ct. 2. Small right posterior parietal scalp hematoma with appearance similar to the previous study on 12/24/2020. There is no evidence of a skull fracture and the skull base, mastoids and sinuses are a becker were unremarkable. 3. Cerebellar atrophy noted with the brainstem unremarkable and no posterior fossa bleed. No new or acute finding. Imaging: See below EKG: See below Assessment and Plan: Recurrent falls - likely 2/2 deconditioning / poor stability - Recent admission from 12/25 to 12/30 and for left ankle sprain; had cleared PT and was discharged home - Patient presented to the ER after she had fallen again this morning - She reports significant left knee and ankle pain - Imaging noted above - s/p Morphine in the ER - c/w Hydrocodone for moderate pain; Will add Morphine for severe pain - c/w Tizanidine - Will add Tylenol PRN - Will order PT / OT; patient may require rehabilitation moving forward HTN - Hypertensive urgency; SBP in the ER of 180s - Will resume home medication regimen with Amlodipine, Atenolol, Hydralazine, Isosorbide dinitrate CAD s/p stent (2018) - Denies any chest pain or palpitations - c/w ASA 81 Diastolic CHF - No evidence of exacerbation - Not on diuretics as an outpatient IDDM2 - Will start ISS and c/w long acting insulin DLP - c/w Atorvastatin Hypothyroidism - c/w Levothyroxine ARNOLD CKD3 - Cr appears to be at baseline Fibromyalgia - c/w Gabapentin / Duloxetine GERD - c/w Protonix / Carafate DVT prophylaxis - Will start Heparin SQ Vital Signs Vital Signs Date Time Temp Pulse Resp B/P (MAP) Pulse Ox O2 Delivery O2 Flow Rate FiO2 12/31/20 14:45 98.0 20 180/102 (128) 12/31/20 14:44 86 100 12/31/20 14:25 Room Air 96.0 Laboratory Data Labs 24H Laboratory Tests 2 12/31/20 12:22: Immature Granulocyte % (Auto) 0.3, Neutrophils (%) (Auto) 49.3, Lymphocytes (%) (Auto) 33.3, Monocytes (%) (Auto) 12.1H, Eosinophils (%) (Auto) 3.7H, Basophils (%) (Auto) 1.3H, Neutrophils # (Auto) 3.3, Lymphocytes # (Auto) 2.2, Monocytes # (Auto) 0.8, Eosinophils # (Auto) 0.3, Basophils # (Auto) 0.1, Nucleated Red Blood Cells % (auto) 0.3H, Anion Gap 9, Glomerular Filtration Rate > 60.0, Calcium Level 9.2, Total Bilirubin 0.8, Direct Bilirubin 0.2, Aspartate Amino Transf (AST/SGOT) 38H, Alanine Aminotransferase (ALT/SGPT) 32, Alkaline Phosphatase 105, Total Creatine Kinase 77, Creatine Kinase MB 1.4, Creatine Kinase MB Relative Index 1.82, Troponin I 0.19H, Total Protein 6.3L, Albumin 2.8L, Albumin/Globulin Ratio 0.8L, Lipase 109, Thyroid Stimulating Hormone (TSH) 3.060, Free Thyroxine 1.57H 12/31/20 14:07: Coronavirus (COVID-19)(PCR) NEGATIVE, Influenza Type A (RT-PCR) NEGATIVE, Influenza Type B (RT-PCR) NEGATIVE, Respiratory Syncytial Virus (PCR) NEGATIVE CBC/BMP Laboratory Tests 12/31/20 12:22 Home Medications Scheduled Amlodipine Besylate (Norvasc) 5 Mg Tablet, 5 MG PO DAILY Aspirin (Aspirin EC) 81 Mg Tablet.dr, 81 MG PO DAILY Atenolol (Atenolol) 25 Mg Tablet, 25 MG PO DAILY Atorvastatin Calcium (Atorvastatin Calcium) 20 Mg Tab, 20 MG PO DAILY Duloxetine HCl (Duloxetine HCl) 60 Mg Capsule.dr, 60 MG PO DAILY Empagliflozin (Jardiance) 10 Mg Tablet, 10 MG PO DAILY Ferrous Sulfate (Ferrous Sulfate) 325 Mg Tablet.dr, 325 MG PO DAILY Gabapentin (Gabapentin) 100 Mg Capsule, 100 MG PO BID Insulin Detemir (Levemir Flextouch) 100 Unit/1 Ml Insuln.pen, 26 UNITS SUBQ BID Insulin Human Lispro (Novolog) 100 Unit/1 Ml Vial, 1 DOSE SC TID PER SLIDING SCALE Isosorbide Dinitrate (Isosorbide Dinitrate) 20 Mg Tablet, 20 MG PO TID Levothyroxine Sodium (Levothyroxine Sodium) 75 Mcg Tablet, 75 MCG PO DAILY Metformin HCl (Metformin HCl ER) 500 Mg Tab.er.24h, 1,000 MG PO BID Pantoprazole Sodium (Pantoprazole Sodium) 40 Mg Tablet.dr, 40 MG PO DAILY Sucralfate (Sucralfate) 1 Gm Tablet, 1 GM PO TID Scheduled PRN Hydralazine HCl (Hydralazine HCl) 10 Mg Tablet, 10 MG PO QID PRN for SBP > 150 Hydrocodone/Acetaminophen (Hydrocodone-Acetamin 7.5-325) 1 Each Tablet, 1 TAB PO TIDP PRN for pain Tizanidine HCl (Tizanidine HCl) 4 Mg Cap, 4 MG PO BID PRN for MUSCLE SPASMS Allergies Coded Allergies: gatifloxacin (Verified Allergy, Mild, 05/30/20) LEAH KHALIL MD Dec 31, 2020 15:40
--- OUTSIDE RECORDS SUMMARY | 2020-12-31 15:51 | CCD ---
Author Author [facility] Organization [facility] Address Unknown Phone Unavailable Support Name Relationship Address Phone RE Next Of Kin Unknown Unavailable Junior Gallo Next Of Kin Unknown Unavailable MARIO ALBERTO MILLER Next Of Kin [address] [place] [address] LEDGER, (CAPPY) CAPITOLA Next Of Kin [address] [place] [address] LEDGER, CAPPY Next Of Kin [address] [address] DISABILITY Next Of Kin UN UN, UN UN MARIANO FLEMING Next Of Kin [address] [facility] [address] [place] [address] NELLIE FLEMING Next Of Kin [address] [place] [address] NELLIE ANDERS Next Of Kin [address] [place] [address] Kimberly Villanueva Next Of Kin [address] [place] [address] 315 Kristopher Barrow MD Next Of Kin [address] [place] [address] JUNIOR BELTRE Next Of Kin [address] [place] [id number] [place] [address] DALE WALTERS Next Of Kin [address] [facility] [address] [place] [address] [employer] Next Of Kin [address] [place] [address] DOLLAR [employer]REE [place] [address] Gilson SMITH JR Next Of Kin [address] [place] [address] [employer] [place] [address] [facility] TOO [place] [address] DEEP FLEMING Next Of Kin [address] [place] [address] UE Next Of Kin Unknown Unavailable SATISH BEL[place] [address] Unavailable MARTHA FLEMING Next Of Kin [address] [place] [address] ANGELA KINGSLEY Next Of Kin Unknown Mario Alberto Fleming Next Of Kin Unknown DISABLED Next Of Kin Unknown Unavailable DALE [place] [address] JUNIOR MILLER Next Of Kin [address] [place] [address] MARIANA SMITH Next Of Kin [address] [facility] [address] [place] [address] MARIO ALBERTO MILLER ECON [address] [place] [address] Unavailable LedAlvaro seymour (Cappy) ECON Unknown Unavai lable Mario Alberto Fleming ECON Unknown [phone] Care Team Providers Care Mechanic Senior Name Role Phone Catalino Dunn Cara SUPERVISOR FRONT Unavailable Unavailable Kocan, J Cara SUPERVISOR FRONT Unavailable Unavailable Kocan, J Cara SUPERVISOR FRONT Unavailable Unavailable Kocan, J Cara SUPERVISOR FRONT Unavailable Unavailable Kocan, J Cara SUPERVISOR FRONT Unavailable Unavailable Kocan, J Cara SUPERVISOR FRONT Unavailable Unavailable Kocan, J Cara SUPERVISOR FRONT Unavailable Unavailable Kocan, J Cara SUPERVISOR FRONT Unavailable Unavailable Kocan, J Cara SUPERVISOR FRONT Unavailable Unavailable Kocan, J Cara SUPERVISOR FRONT Unavailable Unavailable Kocan, J Cara SUPERVISOR FRONT Unavailable Unavailable Kocan, J Cara SUPERVISOR FRONT Unavailable Unavailable Kocan, J Cara SUPERVISOR FRONT Unavailable Unavailable SYSTEM IN, NOT IN PROVIDER Unavailable Unavailable REINDL, AYDIN WLELS Unavailable Unavailable REINDL, AYDIN WELLS Unavailable Unavailable [...] AYDIN WELLS Unavailable Unavailable Fish, Johnna Thompson [facility], PA-C Unavailable Unavailabl e Fish, Johnna Thompson [facility], PA-C Unavailable Unavailabl e Fish, Johnna Thompson [facility], PA-C Unavailable Unavailabl e Fish, Johnna Thompson [facility], PA-C Unavailable Unavailabl e Fish, Johnna Thompson [facility], PA-C Unavailable Unavailabl e Fish, Johnna Thompson [facility], PA-C Unavailable Unavailabl e Fish, Johnna Donna [facility], PA-C Unavailable Unavailabl e Fish, Johnna Thompson MPAS, PA-C Unavailable Unavailabl e Fish, Johnna Thompson MPAS, PA-C Unavailable Unavailabl e Fish, Johnna Thompson MPAS, PA-C Unavailable Unavailabl e Fish, Johnna Thompson MPAS, PA-C Unavailable Unavailabl e Fish, Johnna Thompson [facility], PA-C Unavailable Unavailabl e Fish, Johnna Thompson [facility], PA-C Unavailable Unavailabl e Fish, [facility], PA-C Unavailable Unavailabl e Fish, [facility], PA-C Unavailable Unavailabl e Fish, [facility], PA-C Unavailable Unavailabl e Fish, [facility], PA-C Unavailable Unavailabl e Fish, [facility], PA-C Unavailable Unavailabl e Fish, [facility], PA-C Unavailable Unavailabl e Fish, [facility], PA-C Unavailable Unavailabl e Fish, [facility], PA-C Unavailable Unavailabl e Fish, [facility], PA-C Unavailable Unavailabl e Fish, [facility], PA-C Unavailable Unavailabl e Fish, [facility], PA-C Unavailable Unavailabl e Fish, [facility], PA-C Unavailable Unavailabl e Fish, [facility], PA-C Unavailable Unavailabl e Fish, [facility], PA-C Unavailable Unavailabl e Fish, [facility], PA-C Unavailable Unavailabl e Fish, [facility], PA-C Unavailable Unavailabl e Fish, [facility], PA-C Unavailable Unavailabl e Fish, [facility], PA-C Unavailable Unavailabl e Fish, [facility], PA-C Unavailable Unavailabl e Fish, [facility], PA-C Unavailable Unavailabl e Fish, [facility], PA-C Unavailable Unavailabl e Fish, [facility], PA-C Unavailable Unavailabl e Fish, [facility], PA-C Unavailable Unavailabl e NILAM KEARNS MD [...] Unavailable Unavailable URMILA, NILAM WELLS Unavailable Unavailable URIMLA, NILAM WELLS Unavailable Unavailable URMILA, NILAM WELLS [...] Unavailable URMILA, NILAM WELLS Unavailable Unavailable URMILA, NLIAM WELLS Unavailable Unavailable [...] Unavailable MCELHERAN, KASSY PA Unavailable Unavailable MCELHERAN, KSASY PA Unavailable Unavailable MCELHERAN, KASSY PA Unavailable Unavailable MCELHERAN, KASSY PA Unavailable Unavailable MCELHERAN, KASSY PA Unavailable Unavailable MCELHERAN, KASSY PA Unavailable Unavailable Zakia Conti MD Unavailable Unavailable Zakia Conti MD Unavailable Unavailable Zakia Conti MD Unavailable Unavailable Zakia Conti MD Unavailable Unavailable Zakia Conti MD Unavailable Unavailable Zakia Conti MD Unavailable Unavailable Zakia Conti MD Unavailable Unavailable Zakia Conti MD Unavailable Unavailable Zakai Conti MD Unavailable Unavailable Zakia Conti MD [...] Unavailable Zakia Conti MD Unavailable Unavailable Zakia oCnti MD Unavailable Unavailable Zakia Conti MD Unavailable [...] is protected by Article 27-F of the [facility] Public Health law. If you continue you may have access to information: Regarding HIV / AIDS; Provided by facilities licensed or operated by the [facility] Office of Mental Health; or Provided by the [facility] Office for People With Developmental Disabilities. If such information is present, then the following [facility] mandated warning applies: This information has been [...] law may result in a fine or longterm sentence or both. A general authorization for the release of medical or other information is NOT sufficient authorization for further disc losure. Family History Family Member Name Family Member Gender Family Member Status Date o f Status Description Data Source(s) Unknown Unknown Problem MEDENT ([facility], ) Encounters Encounter Providers Location Date Indications Data Source(s ) Unknown [address] [facility] Y [address] 12/19/2020 12:00:00 AM EDT eCW1 ([facility]) Unknown [address] [facility] Y [address] 12/13/2020 12:00:00 AM EDT eCW1 ([facility]) Outpatient [address] [facility] [place] [address] 12/12/2020 12:00:00 AM EDT eCW1 ([facility]) Unknown [address] [facility] Y [address] 12/12/2020 12:00:00 AM EDT eCW1 ([facility]) Unknown [address] [facility] Y [address] 12/01/2020 12:00:00 AM EDT [facility]CW1 [facility]) Outpatient Attender: Zakia Conti MD Main [facility] 10/19/2020 02:15:00 PM EDT MEDENT ([facility] EDEN hurtado) Outpatient Attender: Cara ANGUIANO SJP.CARLOS ENRIQUE-SJP.CARLOS ENRIQUE 2020 12:00:00 AM EDT - 10/12/2020 12:16:58 PM EDT [facility] Unknown [address] [facility] [address] 10/11/2020 12:00:00 AM EDT [facility] Outpatient [address] [facility] Y [address] 10/11/2020 12:00:00 AM EDT [facility]1 [facility]) Unknown [address] [facility] Y [address] 10/06/2020 12:00:00 AM EDT [facility]CW1 [facility]) Outpatient Attender: Selma Wilson/Osman/Win/Briana corcoran 10/04/2020 11:00:00 AM EDT MEDENT ([facility] EDEN Daniels) Unknown [address] [facility] [address] 10/04/2020 12:00:00 AM EDT eCW1 ([facility]) Outpatient [address] [facility] Y [address] 10/03/2020 12:00:00 AM EDT eCW1 ([facility]) Unknown [address] [facility] Y [address] 10/03/2020 12:00:00 AM EDT eCW1 ([facility]) Unknown [address] [facility] Y [address] 09/30/2020 12:00:00 AM EDT eCW1 ([facility]) Unknown [address] [facility] Y [address] 09/29/2020 12:00:00 AM EDT eCW1 ([facility]) OFFICE OUTPATIENT VISIT 15 MINUTES Attender: Donna PETERSON PA-C Physical Therapy 09/21/2020 10:30:00 AM EDT MEDENT ([facility]) Outpatient Attender: ANGY Pierce/Osman/Win/Lio sue 09/20/2020 03:40:00 PM EDT MEDENT ([facility]) Unknown [address] [facility] [address] 09/15/2020 12:00:00 AM EDT eCW1 ([facility]) Unknown [address] [facility] [address] 09/12/2020 12:00:00 AM EDT eCW1 ([facility]) Outpatient Attender: NILAM KEARNS MD SJP.CARLOS ENRIQUE-SJP.CARLOS ENRIQUE 12:00:00 AM EDT - 09/07/2020 12:16:15 PM EDT [facility] Unknown [address] [facility] [address] 09/05/2020 12:00:00 AM EDT eCW1 ([facility]) Unknown [address] [facility] [address] 09/01/2020 12:00:00 AM EDT eCW1 ([facility]) Unknown [address] [facility] [address] 09/01/2020 12:00:00 AM EDT eCW1 ([facility]) Unknown [address] [facility] [address] 08/31/2020 12:00:00 AM EDT eCW1 ([facility]) Office Visit, Est Pt., Level 4 PC [address] [place] [address] 08/22/2020 12:00:00 AM EDT eCW1 ([facility]) Outpatient Attender: KASSY ZEPEDA Physical Therapy 08/18/2020 01:15:00 PM EDT MEDENT ([facility]) Outpatient Attender: Zakia Conti MD Main office - [place] 08/09/2020 09:30:00 AM EDT MEDENT ([facility]) Office Visit, Est Pt., Level 4 PC [address] [place] [address] 08/02/2020 12:00:00 AM EDT eCW1 ([facility]) Unknown [address] [facility] [address] 08/02/2020 12:00:00 AM EDT eCW1 ([facility]) Outpatient Attender: AYDIN Wilson/Osman/Win/Frannie zeng 08/01/2020 03:30:00 PM EDT MEDENT ([facility]) Unknown [address] [facility] [address] 07/29/2020 12:00:00 AM EDT eCW1 ([facility]) Unknown [address] [facility] [address] 07/26/2020 12:00:00 AM EDT eCW1 ([facility]) Outpatient JAYDACARLOS ENRIQUE 07/22/2020 12:00:00 AM EDT [facility] Office Visit, Est Pt., Level 4 PC [address] [place] [address] 07/20/2020 12:00:00 AM EDT eCW1 ([facility]) Unknown [address] [facility], [facility] [address] 07/15/2020 12:00:00 AM EDT eCW1 ([facility]) OFFICE OUTPATIENT VISIT 15 MINUTES Attender: KASSY ZEPEDA Physical Therapy 07/13/2020 10:30:00 AM EDT MEDENT ([facility]) Outpatient Attender: NILAM MONTELONGOCARLOS ENRIQUE 12:00:00 AM EDT - 07/06/2020 11:32:02 AM EDT [facility] Unknown [address] [facility] [address] 07/06/2020 12:00:00 AM EDT eCW1 ([facility]) Office Visit, Est Pt., Level 4 PC [address] [place] [address] 07/05/2020 12:00:00 AM EDT eCW1 ([facility]) Unknown [address] [facility] [address] 07/05/2020 12:00:00 AM EDT eCW1 ([facility]) Unknown [address] [facility] Y [address] 07/05/2020 12:00:00 AM EDT eCW1 ([facility]) Unknown [address] [facility] Y [address] 06/22/2020 12:00:00 AM EDT eCW1 ([facility]) Unknown [address] [facility], [facility] [address] 06/21/2020 12:00:00 AM EDT eCW1 ([facility]) Unknown [address] [facility] [address] 06/17/2020 12:00:00 AM EDT eCW1 ([facility]) Office Visit, Est Pt., Level 2 FC [address] [place] [address] 06/13/2020 12:00:00 AM EDT eCW1 ([facility]) Unknown [address] [facility] Y [address] 06/09/2020 12:00:00 AM EDT eCW1 ([facility]) Outpatient Attender: NILAM PULIDO.CARLOS ENRIQUE-SJANNIE 10:05:07 AM EDT - 06/08/2020 11:16:32 AM EDT [facility] Unknown [address] [facility] Y [address] 06/08/2020 12:00:00 AM EDT eCW1 ([facility]) Unknown [address] [facility], [place] [address] 06/06/2020 12:00:00 AM EDT [facility] Outpatient Attender: KASSY ZEPEDA Physical Therapy 05/26/2020 02:15:00 PM EDT MEDENT ([facility]) Unknown [address] [facility] [address] 05/26/2020 12:00:00 AM EDT eCW1 ([facility]) Unknown [address] [facility], [place] [address] 05/23/2020 12:00:00 AM EDT [facility] Unknown [address] [facility], [place] [address] 05/18/2020 12:00:00 AM EDT eCW1 [facility] Outpatient [address] [facility] [place] [address] 05/12/2020 12:00:00 AM EDT eCW1 ([facility]) Unknown [address] [facility], [place] [address] 05/06/2020 12:00:00 AM EST [facility] Outpatient [address] [facility] [place] [address] 05/03/2020 12:00:00 AM EST eCW1 ([facility]) Unknown [address] [facility] [place] [address] 05/03/2020 12:00:00 AM EST eCW1 ([facility]) Unknown [address] [facility] [place] [address] 05/03/2020 12:00:00 AM EST eCW1 ([facility]) Unknown [address] [facility] Y [address] 04/21/2020 12:00:00 AM EST [facility]CW1 [facility] Outpatient Attender: NILAM KEARNS MD SJP.CARLOS ENRIQUE-SJP.CARLOS ENRIQUE 12:00:00 AM EST - 04/15/2020 03:42:[address] [facility] [address] [facility] [place] [address] 04/11/2020 12:00:00 AM EST [facility] Outpatient [address] [facility] [place] [address] 04/05/2020 12:00:00 AM EST [facility] Outpatient [address] [facility], [place] [address] 04/04/2020 12:00:00 AM EST [facility]) Outpatient Attender: ANGY Pierce/Osman/Win/Lio sue 03/24/2020 08:10:00 AM EST MEDENT ([facility]) Unknown [address] [facility], [place] [address] 03/21/2020 12:00:00 AM EST [facility] Unknown [address] [facility], [place] [address] 03/15/2020 12:00:00 AM EST [facility]) Unknown [address] [facility], [place] [address] 03/08/2020 12:00:00 AM EST [facility] ([facility]) Outpatient [address] [facility] [place] [address] 03/08/2020 12:00:00 AM EST [facility]CW1 ([facility]) Unknown [address] [facility], [place] [address] 03/08/2020 12:00:00 AM EST [facility]CW1 ([facility]) Unknown [address] [facility], [place] [address] 03/08/2020 12:00:00 AM EST [facility]CW1 ([facility]) Unknown [address] [facility] [place] [address] 02/25/2020 12:00:00 AM EST eCW1 ([facility]) Unknown [address] [facility], [place] [address] 02/25/2020 12:00:00 AM EST eCW1 ([facility]) Outpatient [address] [facility], [place] [address] 02/23/2020 12:00:00 AM EST eCW1 ([facility]) Unknown [address] [facility] [place] [address] 02/23/2020 12:00:00 AM EST eCW1 ([facility]) Unknown [address] [facility] Y [address] 02/23/2020 12:00:00 AM EST eCW1 ([facility]) Unknown [address] [facility] [place] [address] 02/22/2020 12:00:00 AM EST eCW1 ([facility]) Unknown [address] [facility] [place] [address] 02/22/2020 12:00:00 AM EST eCW1 ([facility]) Unknown [address] [facility] [place] [address] 02/15/2020 12:00:00 AM EST eCW1 ([facility]) Unknown [address] [facility] [place] [address] 02/15/2020 12:00:00 AM EST eCW1 ([facility]) Unknown [address] [facility] [place] [address] 02/12/2020 12:00:00 AM EST eCW1 ([facility]) Unknown [address] [facility] Y [address] 02/10/2020 12:00:00 AM EST eCW1 [facility] Outpatient Attender: AYDIN Wilson/Osman/Win/Frannie zeng 02/09/2020 08:00:00 AM EST [facility] Office Visit, Est Pt., Level 4 PC [address] [place] [address] 02/09/2020 12:00:00 AM EST eCW1 ([facility]) Unknown [address] [facility] [address] 02/04/2020 12:00:00 AM EST [facility]) Unknown [address] [facility] [address] 02/03/2020 12:00:00 AM EST [facility]CW1 [facility]) Unknown [address] [facility] Y [address] 01/29/2020 12:00:00 AM EST [facility]CW1 [facility]) Unknown [address] [facility] [address] 01/29/2020 12:00:00 AM EST eCW1 ([facility]) Outpatient [address] [facility] [address] 01/26/2020 12:00:00 AM EST [facility] Unknown [address] [facility] [address] 01/20/2020 12:00:00 AM EST eCW1 ([facility]) Outpatient Attender: ANGY Pierce/Osman/Win/Lio sue 01/14/2020 12:40:00 PM EST MEDENT ([facility]) Unknown [address] [facility] Y [address] 01/08/2020 12:00:00 AM EST [facility]CW[facility] Unknown [address] [facility] Y [address] 01/06/2020 12:00:00 AM EST eCW1 ([facility]) Unknown [address] [facility] [address] 12/31/2019 12:00:00 AM EST eCW1 ([facility]) Outpatient Attender: NILAM PULIDO.CARLOS ENRIQUE-SJP.CARLOS ENRIQUE 0 12:00:00 AM EST - 12/30/2019 09:40:17 AM EST [facility] Unknown [address] [facility] [place] [address] 12/30/2019 12:00:00 AM EST [facility]CW1 [facility] Unknown [address] [facility] [place] [address] 12/25/2019 12:00:00 AM EDT [facility]CW1 ([facility] Unknown [address] [facility] [place] [address] 12/11/2019 12:00:00 AM EDT [facility]CW1 ([facility] Unknown [address] [facility] [place] [address] 12/08/2019 12:00:00 AM EDT eCW1 ([facility]) Unknown [address] [facility] [place] [address] 12/07/2019 12:00:00 AM EDT eCW1 ([facility]) Office Visit Attender: KASSY ZEPEDA Physical Therapy 12/04/2019 04:00:00 PM EDT MEDENT ([facility]) Unknown [address] [facility] [place] [address] 12/03/2019 12:00:00 AM EDT [facility]CW[facility] ([facility] Unknown [address] [facility] [place] [address] 12/03/2019 12:00:00 AM EDT [facility]CW1 ([facility]) Unknown [address] 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 [facility] mild to mod cord compression of C5 and C 6 Outpatient Attender: KASSY mallory 11/06/2019 02:45:00 PM EDT MEDMARIA INES ([facility]ague [facility], [facility]) Outpatient<td ID="encounterTypeDescripti onID0">1 Year Follow-Up</td><td>Silverio Mustafa DO</td><td>Aydin Weaver MD [facility]</td><td>10/05/2020</td><td>04/07/2019 11:50AM</td><td>11:08AM</td><td> <content ID="encounterDiagnosisID0-0">History of Nicotine Dependence</content>, <content ID="encounterDiagnosisID0-1">Essential Hypertension</content>, <content ID="encounterDiagnosisID0-2">Retinopathy Hypertensive</content>, <content ID="encounterDiagnosisID0-3">Taking Medication For Diabetes Long-term Use of Insulin</content>, <content ID="encounterDiagnosisID0-4">Dry Eye Syndrome Both Eyes</content>, <content ID="encounterDiagnosisID0-5">Borderline Glaucoma Ocular Hypertension Both Eyes</content>, <content ID="encounterDiagnosisID0-6">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</content>, <content ID="encounterDiagnosisID0-7">Pseudophakia</content>, <content ID="encounterDiagnosisID0-8">Posterior Capsule Opacification Eccentric Capsule Both Eyes</content></td> Attender: SILVERIO Booker MD [facility] 04/07/2019 11:50:00 AM EST - 10/05/2020 11:08:00 AM ED T Posterior Capsule Opacification Eccentric Capsule Both EyesPseudophakiaHistory of Nicotine DependenceEssential Hypertension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Taking Medication For Diabetes Long-term Use of Insulin Retinopathy HypertensiveBorderline Glaucoma Ocular Hypertension Both EyesDry Eye Syndrome Both Eyes SHANE (Aydin Toribio MD [facility]) Posterior Capsule Opacification Eccentri c [...] EDT active Levothyroxine Sodium 75 MCG eCW1 ([facility]) Levothyroxine Sodium 0.075 MG Oral Tablet Levothyroxin e Sodium 75 MCG Levothyroxine Sodium 75 MCG 12/13/2020 12:00:00 AM EDT active Levothyroxine Sodium 75 MCG eCW1 ([facility]) Levothyroxine Sodium 0.075 MG Oral Tablet Levothyroxin e Sodium 75 MCG Levothyroxine Sodium 75 MCG 12/13/2020 12:00:00 AM EDT active Levothyroxine Sodium 75 MCG eCW1 ([facility]) duloxetine 60 MG Delayed Release Oral Capsule DULoxeti ne HCl 60 MG DULoxetine HCl 60 MG 12/12/2020 12:00:00 AM EDT 1.0 {capsule} a ctive DULoxetine HCl 60 MG eCW1 ([facility]) duloxetine 60 MG Delayed Release Oral Capsule DULoxeti ne HCl 60 MG DULoxetine HCl 60 MG 12/12/2020 12:00:00 AM EDT 1.0 {capsule} a ctive DULoxetine HCl 60 MG eCW1 ([facility]) duloxetine 60 MG Delayed Release Oral Capsule DULoxeti ne HCl 60 MG DULoxetine HCl 60 MG 12/12/2020 12:00:00 AM EDT 1.0 {capsule} a ctive DULoxetine HCl 60 MG eCW1 ([facility]) duloxetine 60 MG Delayed Release Oral Capsule DULoxeti ne HCl 60 MG DULoxetine HCl 60 MG 12/12/2020 12:00:00 AM EDT 1.0 {capsule} a ctive DULoxetine HCl 60 MG eCW1 ([facility]) Acetaminophen 325 MG / Hydrocodone Brielle trate 7.5 MG Oral Tablet HYDROcodone- Acetaminophen 7.5-325 MG HYDROcodone-Acetaminophen 7.5-325 MG 12/01/2020 12:00:00 AM EDT 1.0 {tablet_as_needed} active HYDROcodone- Acetaminophen 7.5-325 MG eCW1 ([facility]) Acetaminophen 325 MG / Hydrocodone Brielle trate 7.5 MG Oral Tablet HYDROcodone- Acetaminophen 7.5-325 MG HYDROcodone-Acetaminophen 7.5-325 MG 12/01/2020 12:00:00 AM EDT 1.0 {tablet_as_needed} active HYDROcodone- Acetaminophen 7.5-325 MG eCW1 ([facility]) Acetaminophen 325 MG / Hydrocodone Brielle trate 7.5 MG Oral Tablet HYDROcodone- Acetaminophen 7.5-325 MG HYDROcodone-Acetaminophen 7.5-325 MG 12/01/2020 12:00:00 AM EDT 1.0 {tablet_as_needed} active HYDROcodone- Acetaminophen 7.5-325 MG eCW1 ([facility]) Acetaminophen 325 MG / Hydrocodone Brielle trate 7.5 MG Oral Tablet HYDROcodone- Acetaminophen 7.5-325 MG HYDROcodone-Acetaminophen 7.5-325 MG 12/01/2020 12:00:00 AM EDT 1.0 {tablet_as_needed} active HYDROcodone- Acetaminophen 7.5-325 MG eCW1 ([facility]) Acetaminophen 325 MG / Hydrocodone Brielle trate 7.5 MG Oral Tablet HYDROcodone- Acetaminophen 7.5-325 MG HYDROcodone-Acetaminophen 7.5-325 MG 12/01/2020 12:00:00 AM EDT 1.0 {tablet_as_needed} active HYDROcodone- Acetaminophen 7.5-325 MG eCW1 ([facility]) Primidone 50 MG Oral Tablet Primidone 10/19/2020 12:00:00 AM EDT active MEDENT ([facility], ) Triamcinolone Acetonide 1 MG/ML Topical Cream Triamcin olone Acetonide 0.1 % Triamcinolone Acetonide 0.1 % 10/11/2020 12:00:00 AM EDT active Triamcinolone Acetonide 0.1 % eCW1 ([facility]) Triamcinolone Acetonide 1 MG/ML Topical Cream Triamcin olone Acetonide 0.1 % Triamcinolone Acetonide 0.1 % 10/11/2020 12:00:00 AM EDT active Triamcinolone Acetonide 0.1 % eCW1 ([facility]) Triamcinolone Acetonide 1 MG/ML Topical Cream Triamcin olone Acetonide 0.1 % Triamcinolone Acetonide 0.1 % 10/11/2020 12:00:00 AM EDT active Triamcinolone Acetonide 0.1 % eCW1 ([facility]) Triamcinolone Acetonide 1 MG/ML Topical Cream Triamcin olone Acetonide 0.1 % Triamcinolone Acetonide 0.1 % 10/11/2020 12:00:00 AM EDT active Triamcinolone Acetonide 0.1 % eCW1 ([facility]) Triamcinolone Acetonide 1 MG/ML Topical Cream Triamcin olone Acetonide 0.1 % Triamcinolone Acetonide 0.1 % 10/11/2020 12:00:00 AM EDT active Triamcinolone Acetonide 0.1 % eCW1 ([facility]) Triamcinolone Acetonide 1 MG/ML Topical Cream Triamcin olone Acetonide 0.1 % Triamcinolone Acetonide 0.1 % 10/11/2020 12:00:00 AM EDT active Triamcinolone Acetonide 0.1 % eCW1 ([facility]) Triamcinolone Acetonide 1 MG/ML Topical Cream Triamcin olone Acetonide 0.1 % Triamcinolone Acetonide 0.1 % 10/11/2020 12:00:00 AM EDT active Triamcinolone Acetonide 0.1 % eCW1 ([facility]) Levothyroxine Sodium 0.05 MG Oral Tablet Levothyroxine Sodium 50 MCG Levothyroxine Sodium 50 MCG 10/04/2020 12:00:00 AM EDT active Levothyroxine Sodium 50 MCG eCW1 ([facility]) Levothyroxine Sodium 0.05 MG Oral Tablet Levothyroxine Sodium 50 MCG Levothyroxine Sodium 50 MCG 10/04/2020 12:00:00 AM EDT active Levothyroxine Sodium 50 MCG eCW1 ([facility]) Levothyroxine Sodium 0.05 MG Oral Tablet Levothyroxine Sodium 50 MCG Levothyroxine Sodium 50 MCG 10/04/2020 12:00:00 AM EDT active Levothyroxine Sodium 50 MCG eCW1 ([facility]) Levothyroxine Sodium 0.05 MG Oral Tablet Levothyroxine Sodium 50 MCG Levothyroxine Sodium 50 MCG 10/04/2020 12:00:00 AM EDT active Levothyroxine Sodium 50 MCG eCW1 ([facility]) Levothyroxine Sodium 0.05 MG Oral Tablet Levothyroxine Sodium 50 MCG Levothyroxine Sodium 50 MCG 10/04/2020 12:00:00 AM EDT active Levothyroxine Sodium 50 MCG eCW1 ([facility]) Levothyroxine Sodium 0.05 MG Oral Tablet Levothyroxine Sodium 50 MCG Levothyroxine Sodium 50 MCG 10/04/2020 12:00:00 AM EDT active Levothyroxine Sodium 50 MCG eCW1 ([facility]) Acetaminophen 325 MG / Hydrocodone Brielle trate 7.5 MG Oral Tablet HYDROcodone- Acetaminophen 7.5-325 MG HYDROcodone-Acetaminophen 7.5-325 MG 10/03/2020 12:00:00 AM EDT 1.0 {tablet_as_needed} active HYDROcodone- Acetaminophen 7.5-325 MG eCW1 ([facility]) Acetaminophen 325 MG / Hydrocodone Brielle trate 7.5 MG Oral Tablet HYDROcodone- Acetaminophen 7.5-325 MG HYDROcodone-Acetaminophen 7.5-325 MG 10/03/2020 12:00:00 AM EDT 1.0 {tablet_as_needed} active HYDROcodone- Acetaminophen 7.5-325 MG eCW1 ([facility]) Acetaminophen 325 MG / Hydrocodone Brielle trate 7.5 MG Oral Tablet HYDROcodone- Acetaminophen 7.5-325 MG HYDROcodone-Acetaminophen 7.5-325 MG 10/03/2020 12:00:00 AM EDT 1.0 {tablet_as_needed} active HYDROcodone- Acetaminophen 7.5-325 MG eCW1 ([facility]) Acetaminophen 325 MG / Hydrocodone Brielle trate 7.5 MG Oral Tablet HYDROcodone- Acetaminophen 7.5-325 MG HYDROcodone-Acetaminophen 7.5-325 MG 10/03/2020 12:00:00 AM EDT 1.0 {tablet_as_needed} active HYDROcodone- Acetaminophen 7.5-325 MG eCW1 ([facility]) Acetaminophen 325 MG / Hydrocodone Brielle trate 7.5 MG Oral Tablet HYDROcodone- Acetaminophen 7.5-325 MG HYDROcodone-Acetaminophen 7.5-325 MG 10/03/2020 12:00:00 AM EDT 1.0 {tablet_as_needed} active HYDROcodone- Acetaminophen 7.5-325 MG eCW1 ([facility]) Acetaminophen 325 MG / Hydrocodone Brielle trate 7.5 MG Oral Tablet HYDROcodone- Acetaminophen 7.5-325 MG HYDROcodone-Acetaminophen 7.5-325 MG 10/03/2020 12:00:00 AM EDT 1.0 {tablet_as_needed} active HYDROcodone- Acetaminophen 7.5-325 MG eCW1 ([facility]) Acetaminophen 325 MG / Hydrocodone Brielle trate 7.5 MG Oral Tablet HYDROcodone- Acetaminophen 7.5-325 MG HYDROcodone-Acetaminophen 7.5-325 MG 10/03/2020 12:00:00 AM EDT 1.0 {tablet_as_needed} active HYDROcodone- Acetaminophen 7.5-325 MG eCW1 ([facility]) Acetaminophen 325 MG / Hydrocodone Brielle trate 7.5 MG Oral Tablet HYDROcodone- Acetaminophen 7.5-325 MG HYDROcodone-Acetaminophen 7.5-325 MG 10/03/2020 12:00:00 AM EDT 1.0 {tablet_as_needed} active HYDROcodone- Acetaminophen 7.5-325 MG eCW1 ([facility]) Acetaminophen 325 MG / Hydrocodone Brielle trate 7.5 MG Oral Tablet HYDROcodone- Acetaminophen 7.5-325 MG HYDROcodone-Acetaminophen 7.5-325 MG 10/03/2020 12:00:00 AM EDT 1.0 {tablet_as_needed} active HYDROcodone- Acetaminophen 7.5-325 MG eCW1 ([facility]) Acetaminophen 325 MG / Hydrocodone Brielle trate 7.5 MG Oral Tablet HYDROcodone- Acetaminophen 7.5-325 MG HYDROcodone-Acetaminophen 7.5-325 MG 10/03/2020 12:00:00 AM EDT 1.0 {tablet_as_needed} active HYDROcodone- Acetaminophen 7.5-325 MG eCW1 ([facility]) Acetaminophen 325 MG / Hydrocodone Brielle trate 7.5 MG Oral Tablet HYDROcodone- Acetaminophen 7.5-325 MG HYDROcodone-Acetaminophen 7.5-325 MG 10/03/2020 12:00:00 AM EDT 1.0 {tablet_as_needed} active HYDROcodone- Acetaminophen 7.5-325 MG eCW1 ([facility]) Acetaminophen 325 MG / Hydrocodone Brielle trate 7.5 MG Oral Tablet HYDROcodone- Acetaminophen 7.5-325 MG HYDROcodone-Acetaminophen 7.5-325 MG 10/03/2020 12:00:00 AM EDT 1.0 {tablet_as_needed} active HYDROcodone- Acetaminophen 7.5-325 MG eCW1 ([facility]) Acetaminophen 325 MG / Hydrocodone Brielle trate 7.5 MG Oral Tablet HYDROcodone- Acetaminophen 7.5-325 MG HYDROcodone-Acetaminophen 7.5-325 MG 10/03/2020 12:00:00 AM EDT 1.0 {tablet_as_needed} active HYDROcodone- Acetaminophen 7.5-325 MG eCW1 ([facility]) Acetaminophen 325 MG / Hydrocodone Brielle trate 7.5 MG Oral Tablet HYDROcodone- Acetaminophen 7.5-325 MG HYDROcodone-Acetaminophen 7.5-325 MG 10/03/2020 12:00:00 AM EDT 1.0 {tablet_as_needed} active HYDROcodone- Acetaminophen 7.5-325 MG eCW1 ([facility]) Acetaminophen 325 MG / Hydrocodone Brielle trate 7.5 MG Oral Tablet HYDROcodone- Acetaminophen 7.5-325 MG HYDROcodone-Acetaminophen 7.5-325 MG 10/03/2020 12:00:00 AM EDT 1.0 {tablet_as_needed} active HYDROcodone- Acetaminophen 7.5-325 MG eCW1 ([facility]) Acetaminophen 325 MG / Hydrocodone Brielle trate 7.5 MG Oral Tablet HYDROcodone- Acetaminophen 7.5-325 MG HYDROcodone-Acetaminophen 7.5-325 MG 10/03/2020 12:00:00 AM EDT 1.0 {tablet_as_needed} active HYDROcodone- Acetaminophen 7.5-325 MG eCW1 ([facility]) Acetaminophen 325 MG / Hydrocodone Brielle trate 7.5 MG Oral Tablet HYDROcodone- Acetaminophen 7.5-325 MG HYDROcodone-Acetaminophen 7.5-325 MG 10/03/2020 12:00:00 AM EDT 1.0 {tablet_as_needed} active HYDROcodone- Acetaminophen 7.5-325 MG eCW1 ([facility]) Amlodipine 2.5 MG Oral Tablet amLODIPine Besylate 2.5 MG amLODIPine Besylate 2.5 MG 09/30/2020 12:00:00 AM EDT 1.0 {tablet} activ e amLODIPine Besylate 2.5 MG eCW1 ([facility]) Amlodipine 2.5 MG Oral Tablet amLODIPine Besylate 2.5 MG amLODIPine Besylate 2.5 MG 09/30/2020 12:00:00 AM EDT 1.0 {tablet} activ e amLODIPine Besylate 2.5 MG eCW1 ([facility]) Amlodipine 2.5 MG Oral Tablet amLODIPine Besylate 2.5 MG amLODIPine Besylate 2.5 MG 09/30/2020 12:00:00 AM EDT 1.0 {tablet} activ e amLODIPine Besylate 2.5 MG eCW1 ([facility]) Amlodipine 2.5 MG Oral Tablet amLODIPine Besylate 2.5 MG amLODIPine Besylate 2.5 MG 09/30/2020 12:00:00 AM EDT 2.0 {tablets} acti ve amLODIPine Besylate 2.5 MG eCW1 ([facility]) Amlodipine 2.5 MG Oral Tablet amLODIPine Besylate 2.5 MG amLODIPine Besylate 2.5 MG 09/30/2020 12:00:00 AM EDT 2.0 {tablets} acti ve amLODIPine Besylate 2.5 MG eCW1 ([facility]) Amlodipine 2.5 MG Oral Tablet amLODIPine (NORVASC) 2.5 MG tablet amLODIPine (NORVASC) 2.5 MG tablet 09/30/2020 12:00:00 AM EDT active [facility] Amlodipine 2.5 MG Oral Tablet amLODIPine Besylate 2.5 MG amLODIPine Besylate 2.5 MG 09/30/2020 12:00:00 AM EDT 1.0 {tablet} activ e amLODIPine Besylate 2.5 MG eCW1 ([facility]) Amlodipine 2.5 MG Oral Tablet amLODIPine Besylate 2.5 MG amLODIPine Besylate 2.5 MG 09/30/2020 12:00:00 AM EDT 1.0 {tablet} activ e amLODIPine Besylate 2.5 MG eCW1 ([facility]) Amlodipine 2.5 MG Oral Tablet amLODIPine Besylate 2.5 MG amLODIPine Besylate 2.5 MG 09/30/2020 12:00:00 AM EDT 1.0 {tablet} activ e amLODIPine Besylate 2.5 MG eCW1 ([facility]) Amlodipine 2.5 MG Oral Tablet amLODIPine Besylate 2.5 MG amLODIPine Besylate 2.5 MG 09/30/2020 12:00:00 AM EDT 1.0 {tablet} activ e amLODIPine Besylate 2.5 MG eCW1 ([facility]) Amlodipine 2.5 MG Oral Tablet amLODIPine Besylate 2.5 MG amLODIPine Besylate 2.5 MG 09/30/2020 12:00:00 AM EDT 2.0 {tablets} acti ve amLODIPine Besylate 2.5 MG eCW1 ([facility]) Amlodipine 2.5 MG Oral Tablet amLODIPine Besylate 2.5 MG amLODIPine Besylate 2.5 MG 09/30/2020 12:00:00 AM EDT 2.0 {tablets} acti ve amLODIPine Besylate 2.5 MG eCW1 ([facility]) Amlodipine 2.5 MG Oral Tablet amLODIPine Besylate 2.5 MG amLODIPine Besylate 2.5 MG 09/30/2020 12:00:00 AM EDT 1.0 {tablet} activ e amLODIPine Besylate 2.5 MG eCW1 ([facility]) 3 ML Sodium Hyaluronate 10 MG/ML Prefilled Syringe [Gel-One] Gel-One 09/21/2020 12:00:00 AM EDT active M EDENT ([facility]) Acetaminophen 325 MG / Hydrocodone Brielle trate 7.5 MG Oral Tablet HYDROcodone- Acetaminophen 7.5-325 MG HYDROcodone-Acetaminophen 7.5-325 MG 09/12/2020 12:00:00 AM EDT 1.0 {tablet_as_needed} active HYDROcodone- Acetaminophen 7.5-325 MG eCW1 ([facility]) Acetaminophen 325 MG / Hydrocodone Brielle trate 7.5 MG Oral Tablet HYDROcodone- Acetaminophen 7.5-325 MG HYDROcodone-Acetaminophen 7.5-325 MG 09/12/2020 12:00:00 AM EDT 1.0 {tablet_as_needed} active HYDROcodone- Acetaminophen 7.5-325 MG eCW1 ([facility]) Acetaminophen 325 MG / Hydrocodone Brielle trate 7.5 MG Oral Tablet HYDROcodone- Acetaminophen 7.5-325 MG HYDROcodone-Acetaminophen 7.5-325 MG 09/12/2020 12:00:00 AM EDT 1.0 {tablet_as_needed} active HYDROcodone- Acetaminophen 7.5-325 MG eCW1 ([facility]) Acetaminophen 325 MG / Hydrocodone Brielle trate 7.5 MG Oral Tablet HYDROcodone- Acetaminophen 7.5-325 MG HYDROcodone-Acetaminophen 7.5-325 MG 09/12/2020 12:00:00 AM EDT 1.0 {tablet_as_needed} active HYDROcodone- Acetaminophen 7.5-325 MG W1 ([facility]) Hospital bed _ UNK 08/22/2020 12:00:00 AM EDT active Hospital bed _ eCW1 ([facility]) Hospital bed _ UNK 08/22/2020 12:00:00 AM EDT active Hospital bed _ eCW1 ([facility]) Hospital bed _ UNK 08/22/2020 12:00:00 AM EDT active Hospital bed _ eCW1 ([facility]) Hospital bed _ UNK 08/22/2020 12:00:00 AM EDT active Hospital bed _ eCW1 ([facility]) Hospital bed _ UNK 08/22/2020 12:00:00 AM EDT active Hospital bed _ eCW1 ([facility]) Hospital bed _ K 08/22/2020 12:00:00 AM EDT active Hospital bed _ eCW1 ([facility]) Hospital bed _ K 08/22/2020 12:00:00 AM EDT active Hospital bed _ eCW1 ([facility]) Hospital bed _ K 08/22/2020 12:00:00 AM EDT active Hospital bed _ eCW1 ([facility]) Hospital bed _ K 08/22/2020 12:00:00 AM EDT active Hospital bed _ eCW1 ([facility]) Hospital bed _ [facility] 08/22/2020 12:00:00 AM EDT active Hospital bed _ eCW1 ([facility]) Hospital bed _ [facility] 08/22/2020 12:00:00 AM EDT active Hospital bed _ eCW1 ([facility]) Hospital bed _ [facility] 08/22/2020 12:00:00 AM EDT active Hospital bed _ eCW1 ([facility]) Hospital bed _ [facility] 08/22/2020 12:00:00 AM EDT active Hospital bed _ eCW1 ([facility]) Hospital bed _ [facility] 08/22/2020 12:00:00 AM EDT active Hospital bed _ eCW1 ([facility]) Hospital bed _ K 08/22/2020 12:00:00 AM EDT active Hospital bed _ eCW1 ([facility]) Hospital bed _ K 08/22/2020 12:00:00 AM EDT active Hospital bed _ eCW1 ([facility]) Hospital bed _ K 08/22/2020 12:00:00 AM EDT active Hospital bed _ eCW1 ([facility]) Hospital bed _ K 08/22/2020 12:00:00 AM EDT active Hospital bed _ eCW1 ([facility]) Hospital bed _ K 08/22/2020 12:00:00 AM EDT active Hospital bed _ eCW1 ([facility]) Hospital bed _ [facility] 08/22/2020 12:00:00 AM EDT active Hospital bed _ eCW1 ([facility]) Acetaminophen 325 MG / Hydrocodone Brielle trate 7.5 MG Oral Tablet HYDROcodone- Acetaminophen 7.5-325 MG HYDROcodone-Acetaminophen 7.5-325 MG 08/02/2020 12:00:00 AM EDT 1.0 {tablet_as_needed} active HYDROcodone- Acetaminophen 7.5-325 MG eCW1 ([facility]) Acetaminophen 325 MG / Hydrocodone Brielle trate 7.5 MG Oral Tablet HYDROcodone- Acetaminophen 7.5-325 MG HYDROcodone-Acetaminophen 7.5-325 MG 08/02/2020 12:00:00 AM EDT 1.0 {tablet_as_needed} active HYDROcodone- Acetaminophen 7.5-325 MG eCW1 ([facility]) Acetaminophen 325 MG / Hydrocodone Brielle trate 7.5 MG Oral Tablet HYDROcodone- Acetaminophen 7.5-325 MG HYDROcodone-Acetaminophen 7.5-325 MG 08/02/2020 12:00:00 AM EDT 1.0 {tablet_as_needed} active HYDROcodone- Acetaminophen 7.5-325 MG eCW1 ([facility]) Acetaminophen 325 MG / Hydrocodone Brielle trate 7.5 MG Oral Tablet HYDROcodone- Acetaminophen 7.5-325 MG HYDROcodone-Acetaminophen 7.5-325 MG 08/02/2020 12:00:00 AM EDT 1.0 {tablet_as_needed} active HYDROcodone- Acetaminophen 7.5-325 MG eCW1 ([facility]) Acetaminophen 325 MG / Hydrocodone Brielle trate 7.5 MG Oral Tablet HYDROcodone- Acetaminophen 7.5-325 MG HYDROcodone-Acetaminophen 7.5-325 MG 08/02/2020 12:00:00 AM EDT 1.0 {tablet_as_needed} active HYDROcodone- Acetaminophen 7.5-325 MG eCW1 ([facility]) Acetaminophen 325 MG / Hydrocodone Brielle trate 7.5 MG Oral Tablet HYDROcodone- Acetaminophen 7.5-325 MG HYDROcodone-Acetaminophen 7.5-325 MG 08/02/2020 12:00:00 AM EDT 1.0 {tablet_as_needed} active HYDROcodone- Acetaminophen 7.5-325 MG eCW1 ([facility]) Acetaminophen 325 MG / Hydrocodone Brielle trate 7.5 MG Oral Tablet HYDROcodone- Acetaminophen 7.5-325 MG HYDROcodone-Acetaminophen 7.5-325 MG 08/02/2020 12:00:00 AM EDT 1.0 {tablet_as_needed} active HYDROcodone- Acetaminophen 7.5-325 MG eCW1 ([facility]) Blood Pressure Monitor - Blood Pressure Monitor - 07/29/2020 12:00: 00 AM EDT active Blood Pressure Monitor - eCW1 ([facility]) Blood Pressure Monitor - Blood Pressure Monitor - 07/29/2020 12:00: 00 AM EDT active Blood Pressure Monitor - eCW1 ([facility]) Blood Pressure Monitor - Blood Pressure Monitor - 07/29/2020 12:00: 00 AM EDT active Blood Pressure Monitor - eCW1 ([facility]) Blood Pressure Monitor - Blood Pressure Monitor - 07/29/2020 12:00: 00 AM EDT active Blood Pressure Monitor - eCW1 ([facility]) Blood Pressure Monitor - Blood Pressure Monitor - 07/29/2020 12:00: 00 AM EDT active Blood Pressure Monitor - eCW1 ([facility]) Blood Pressure Monitor - Blood Pressure Monitor - 07/29/2020 12:00: 00 AM EDT active Blood Pressure Monitor - eCW1 ([facility]) Blood Pressure Monitor - Blood Pressure Monitor - 07/29/2020 12:00: 00 AM EDT active Blood Pressure Monitor - eCW1 ([facility]) Blood Pressure Monitor - Blood Pressure Monitor - 07/29/2020 12:00: 00 AM EDT active Blood Pressure Monitor - eCW1 ([facility]) Blood Pressure Monitor - Blood Pressure Monitor - 07/29/2020 12:00: 00 AM EDT active Blood Pressure Monitor - eCW1 ([facility]) Blood Pressure Monitor - Blood Pressure Monitor - 07/29/2020 12:00: 00 AM EDT active Blood Pressure Monitor - eCW1 ([facility]) Blood Pressure Monitor - Blood Pressure Monitor - 07/29/2020 12:00: 00 AM EDT active Blood Pressure Monitor - eCW1 ([facility]) Blood Pressure Monitor - Blood Pressure Monitor - 07/29/2020 12:00: 00 AM EDT active Blood Pressure Monitor - eCW1 ([facility]) Blood Pressure Monitor - Blood Pressure Monitor - 07/29/2020 12:00: 00 AM EDT active Blood Pressure Monitor - eCW1 ([facility]) Blood Pressure Monitor - Blood Pressure Monitor - 07/29/2020 12:00: 00 AM EDT active Blood Pressure Monitor - eCW1 ([facility]) Blood Pressure Monitor - Blood Pressure Monitor - 07/29/2020 12:00: 00 AM EDT active Blood Pressure Monitor - eCW1 ([facility]) Blood Pressure Monitor - Blood Pressure Monitor - 07/29/2020 12:00: 00 AM EDT active Blood Pressure Monitor - eCW1 ([facility]) Blood Pressure Monitor - Blood Pressure Monitor - 07/29/2020 12:00: 00 AM EDT active Blood Pressure Monitor - eCW1 ([facility]) Blood Pressure Monitor - Blood Pressure Monitor - 07/29/2020 12:00: 00 AM EDT active Blood Pressure Monitor - eCW1 ([facility]) Blood Pressure Monitor - Blood Pressure Monitor - 07/29/2020 12:00: 00 AM EDT active Blood Pressure Monitor - eCW1 ([facility]) Blood Pressure Monitor - Blood Pressure Monitor - 07/29/2020 12:00: 00 AM EDT active Blood Pressure Monitor - eCW1 ([facility]) Blood Pressure Monitor - Blood Pressure Monitor - 07/29/2020 12:00: 00 AM EDT active Blood Pressure Monitor - eCW1 ([facility]) Blood Pressure Monitor - Blood Pressure Monitor - 07/29/2020 12:00: 00 AM EDT active Blood Pressure Monitor - eCW1 ([facility]) Blood Pressure Monitor - Blood Pressure Monitor - 07/29/2020 12:00: 00 AM EDT active Blood Pressure Monitor - eCW1 ([facility]) Blood Pressure Kit - Blood Pressure Kit - 07/22/2020 12:00:00 AM EDT active Blood Pressure Kit - eCW1 ([facility]) Blood Pressure Kit - Blood Pressure Kit - 07/22/2020 12:00:00 AM EDT active Blood Pressure Kit - eCW1 ([facility]) Blood Pressure Kit - Blood Pressure Kit - 07/22/2020 12:00:00 AM EDT active Blood Pressure Kit - eCW1 ([facility]) Blood Pressure Kit - Blood Pressure Kit - 07/22/2020 12:00:00 AM EDT active Blood Pressure Kit - eCW1 ([facility]) Blood Pressure Kit - Blood Pressure Kit - 07/22/2020 12:00:00 AM EDT active Blood Pressure Kit - eCW1 ([facility]) Blood Pressure Kit - Blood Pressure Kit - 07/22/2020 12:00:00 AM EDT active Blood Pressure Kit - eCW1 ([facility]) Blood Pressure Kit - Blood Pressure Kit - 07/22/2020 12:00:00 AM EDT active Blood Pressure Kit - eCW1 ([facility]) Blood Pressure Kit - Blood Pressure Kit - 07/22/2020 12:00:00 AM EDT active Blood Pressure Kit - eCW1 ([facility]) Blood Pressure Kit - Blood Pressure Kit - 07/22/2020 12:00:00 AM EDT active Blood Pressure Kit - eCW1 ([facility]) Blood Pressure Kit - Blood Pressure Kit - 07/22/2020 12:00:00 AM EDT active Blood Pressure Kit - eCW1 ([facility]) Blood Pressure Kit - Blood Pressure Kit - 07/22/2020 12:00:00 AM EDT active Blood Pressure Kit - eCW1 ([facility]) Blood Pressure Kit - Blood Pressure Kit - 07/22/2020 12:00:00 AM EDT active Blood Pressure Kit - eCW1 ([facility]) Blood Pressure Kit - Blood Pressure Kit - 07/22/2020 12:00:00 AM EDT active Blood Pressure Kit - eCW1 ([facility]) Blood Pressure Kit - Blood Pressure Kit - 07/22/2020 12:00:00 AM EDT active Blood Pressure Kit - eCW1 ([facility]) Blood Pressure Kit - Blood Pressure Kit - 07/22/2020 12:00:00 AM EDT active Blood Pressure Kit - eCW1 ([facility]) Blood Pressure Kit - Blood Pressure Kit - 07/22/2020 12:00:00 AM EDT active Blood Pressure Kit - eCW1 ([facility]) Blood Pressure Kit - Blood Pressure Kit - 07/22/2020 12:00:00 AM EDT active Blood Pressure Kit - eCW1 ([facility]) Blood Pressure Kit - Blood Pressure Kit - 07/22/2020 12:00:00 AM EDT active Blood Pressure Kit - eCW1 ([facility]) Blood Pressure Kit - Blood Pressure Kit - 07/22/2020 12:00:00 AM EDT active Blood Pressure Kit - eCW1 ([facility]) Blood Pressure Kit - Blood Pressure Kit - 07/22/2020 12:00:00 AM EDT active Blood Pressure Kit - eCW1 ([facility]) Blood Pressure Kit - Blood Pressure Kit - 07/22/2020 12:00:00 AM EDT active Blood Pressure Kit - eCW1 ([facility]) Blood Pressure Kit - Blood Pressure Kit - 07/22/2020 12:00:00 AM EDT active Blood Pressure Kit - eCW1 ([facility]) Blood Pressure Kit - Blood Pressure Kit - 07/22/2020 12:00:00 AM EDT active Blood Pressure Kit - eCW1 ([facility]) Blood Pressure Kit - Blood Pressure Kit - 07/22/2020 12:00:00 AM EDT active Blood Pressure Kit - eCW1 ([facility]) Blood Pressure Kit - Blood Pressure Kit - 07/22/2020 12:00:00 AM EDT active Blood Pressure Kit - eCW1 ([facility]) Spironolactone 25 MG Oral Tablet spironolactone (ALDAC TONE) 25 MG tablet spironolactone (ALDACTONE) 25 MG tablet 07/06/2020 12:00:00 AM EDT 25 mg Oral active Benign essential hypertension Take 1 tablet (25 mg total) by mouth daily [facility] Benign essential hypertension Losartan Potassium 100 MG Oral Tablet losartan (COZAAR ) 100 MG tablet losartan (COZAAR) 100 MG tablet 07/06/2020 12:00:00 AM EDT 100 mg Oral active Benign essential hypertension Take 1 tablet (100 mg total) b y mouth daily [facility] Benign essential hypertension empagliflozin 10 MG Oral Tablet [Jardiance] Jardiance 10 MG Jardiance 10 MG 07/05/2020 12:00:00 AM EDT 1.0 {tablet} active Jardiance 10 MG eCW1 ([facility]) empagliflozin 10 MG Oral Tablet [Jardiance] Jardiance 10 MG Jardiance 10 MG 07/05/2020 12:00:00 AM EDT 1.0 {tablet} active Jardiance 10 MG eCW1 ([facility]) empagliflozin 10 MG Oral Tablet [Jardiance] Jardiance 10 MG Jardiance 10 MG 07/05/2020 12:00:00 AM EDT 1.0 {tablet} active Jardiance 10 MG eCW1 ([facility]) empagliflozin 10 MG Oral Tablet [Jardiance] Jardiance 10 MG Jardiance 10 MG 07/05/2020 12:00:00 AM EDT 1.0 {tablet} active Jardiance 10 MG eCW1 ([facility]) empagliflozin 10 MG Oral Tablet [Jardiance] Jardiance 10 MG Jardiance 10 MG 07/05/2020 12:00:00 AM EDT 1.0 {tablet} active Jardiance 10 MG eCW1 ([facility]) empagliflozin 10 MG Oral Tablet [Jardiance] Jardiance 10 MG Jardiance 10 MG 07/05/2020 12:00:00 AM EDT 1.0 {tablet} active Jardiance 10 MG eCW1 ([facility]) empagliflozin 10 MG Oral Tablet [Jardiance] Jardiance 10 MG Jardiance 10 MG 07/05/2020 12:00:00 AM EDT 1.0 {tablet} active Jardiance 10 MG eCW1 ([facility]) empagliflozin 10 MG Oral Tablet [Jardiance] Jardiance 10 MG Jardiance 10 MG 07/05/2020 12:00:00 AM EDT 1.0 {tablet} active Jardiance 10 MG eCW1 ([facility]) empagliflozin 10 MG Oral Tablet [Jardiance] Jardiance 10 MG Jardiance 10 MG 07/05/2020 12:00:00 AM EDT 1.0 {tablet} active Jardiance 10 MG eCW1 ([facility]) empagliflozin 25 MG Oral Tablet [Jardiance] Jardiance 25 MG Jardiance 25 MG 07/05/2020 12:00:00 AM EDT 1.0 {tablet} active Jardiance 25 MG eCW1 ([facility]) empagliflozin 10 MG Oral Tablet [Jardiance] Jardiance 10 MG Jardiance 10 MG 07/05/2020 12:00:00 AM EDT 1.0 {tablet} active Jardiance 10 MG eCW1 ([facility]) empagliflozin 10 MG Oral Tablet [Jardiance] Jardiance 10 MG Jardiance 10 MG 07/05/2020 12:00:00 AM EDT 1.0 {tablet} active Jardiance 10 MG eCW1 ([facility]) empagliflozin 25 MG Oral Tablet [Jardiance] Jardiance 25 MG Jardiance 25 MG 07/05/2020 12:00:00 AM EDT 1.0 {tablet} active Jardiance 25 MG eCW1 ([facility]) empagliflozin 10 MG Oral Tablet [Jardiance] Jardiance 10 MG Jardiance 10 MG 07/05/2020 12:00:00 AM EDT 1.0 {tablet} active Jardiance 10 MG eCW1 ([facility]) empagliflozin 10 MG Oral Tablet [Jardiance] Jardiance 10 MG Jardiance 10 MG 07/05/2020 12:00:00 AM EDT 1.0 {tablet} active Jardiance 10 MG eCW1 ([facility]) empagliflozin 10 MG Oral Tablet [Jardiance] Jardiance 10 MG Jardiance 10 MG 07/05/2020 12:00:00 AM EDT 1.0 {tablet} active Jardiance 10 MG eCW1 ([facility]) empagliflozin 10 MG Oral Tablet [Jardiance] Jardiance 10 MG Jardiance 10 MG 07/05/2020 12:00:00 AM EDT 1.0 {tablet} active Jardiance 10 MG eCW1 ([facility]) empagliflozin 10 MG Oral Tablet [Jardiance] Jardiance 10 MG Jardiance 10 MG 07/05/2020 12:00:00 AM EDT 1.0 {tablet} active Jardiance 10 MG eCW1 ([facility]) empagliflozin 10 MG Oral Tablet [Jardiance] Jardiance 10 MG Jardiance 10 MG 07/05/2020 12:00:00 AM EDT 1.0 {tablet} active Jardiance 10 MG eCW1 ([facility]) empagliflozin 10 MG Oral Tablet [Jardiance] Jardiance 10 MG Jardiance 10 MG 07/05/2020 12:00:00 AM EDT 1.0 {tablet} active Jardiance 10 MG eCW1 ([facility]) empagliflozin 10 MG Oral Tablet [Jardiance] Jardiance 10 MG Jardiance 10 MG 07/05/2020 12:00:00 AM EDT 1.0 {tablet} active Jardiance 10 MG eCW1 ([facility]) empagliflozin 10 MG Oral Tablet [Jardiance] Jardiance 10 MG Jardiance 10 MG 07/05/2020 12:00:00 AM EDT 1.0 {tablet} active Jardiance 10 MG eCW1 ([facility]) empagliflozin 10 MG Oral Tablet [Jardiance] Jardiance 10 MG Jardiance 10 MG 07/05/2020 12:00:00 AM EDT 1.0 {tablet} active Jardiance 10 MG eCW1 ([facility]) empagliflozin 10 MG Oral Tablet [Jardiance] Jardiance 10 MG Jardiance 10 MG 07/05/2020 12:00:00 AM EDT 1.0 {tablet} active Jardiance 10 MG eCW1 ([facility]) empagliflozin 10 MG Oral Tablet [Jardiance] Jardiance 10 MG Jardiance 10 MG 07/05/2020 12:00:00 AM EDT 1.0 {tablet} active Jardiance 10 MG eCW1 ([facility]) empagliflozin 10 MG Oral Tablet [Jardiance] Jardiance 10 MG Jardiance 10 MG 07/05/2020 12:00:00 AM EDT 1.0 {tablet} active Jardiance 10 MG eCW1 ([facility]) empagliflozin 10 MG Oral Tablet [Jardiance] Jardiance 10 MG Jardiance 10 MG 07/05/2020 12:00:00 AM EDT 1.0 {tablet} active Jardiance 10 MG eCW1 ([facility]) empagliflozin 10 MG Oral Tablet [Jardiance] Jardiance 10 MG Jardiance 10 MG 07/05/2020 12:00:00 AM EDT 1.0 {tablet} active Jardiance 10 MG eCW1 ([facility]) empagliflozin 10 MG Oral Tablet [Jardiance] Jardiance 10 MG Jardiance 10 MG 07/05/2020 12:00:00 AM EDT 1.0 {tablet} active Jardiance 10 MG eCW1 ([facility]) empagliflozin 10 MG Oral Tablet [Jardiance] Jardiance 10 MG Jardiance 10 MG 07/05/2020 12:00:00 AM EDT 1.0 {tablet} active Jardiance 10 MG eCW1 ([facility]) torsemide 10 MG Oral Tablet torsemide (DEMADEX) 10 MG tablet torsemide (DEMADEX) 10 MG tablet 06/08/2020 12:00:00 AM EDT 10 mg Oral acti ve Take 1 tablet (10 mg total) by mouth daily [facility] Losartan Potassium 50 MG Oral Tablet losartan (COZAAR) 50 MG tablet losartan (COZAAR) 50 MG tablet 06/08/2020 12:00:00 AM EDT 75 mg Oral aborted Benign essential hypertensionCongestive heart failure, unspecified HF chronicity, unspecified heart failure type Take 1.5 tablets (75 mg total ) by mouth daily [facility] Benign essential hypertension Congestive heart failure, unspecified HF chronicity, unspecified heart failure type Acetaminophen 325 MG / Hydrocodone Brielle trate 5 MG Oral Tablet Hydrocodone- Acetaminophen 5-325 MG Hydrocodone-Acetaminophen 5-325 MG 06/07/2020 12:00:00 AM EDT 1.0 {tablet_as_needed} active Hydrocodone-Acetaminophen 5-325 MG eCW1 ([facility]) Acetaminophen 325 MG / Hydrocodone Brielle trate 5 MG Oral Tablet Hydrocodone- Acetaminophen 5-325 MG Hydrocodone-Acetaminophen 5-325 MG 06/07/2020 12:00:00 AM EDT 1.0 {tablet_as_needed} active Hydrocodone-Acetaminophen 5-325 MG eCW1 ([facility]) Acetaminophen 325 MG / Hydrocodone Brielle trate 5 MG Oral Tablet Hydrocodone- Acetaminophen 5-325 MG Hydrocodone-Acetaminophen 5-325 MG 06/07/2020 12:00:00 AM EDT 1.0 {tablet_as_needed} active Hydrocodone-Acetaminophen 5-325 MG eCW1 ([facility]) Acetaminophen 325 MG / Hydrocodone Brielle trate 5 MG Oral Tablet Hydrocodone- Acetaminophen 5-325 MG Hydrocodone-Acetaminophen 5-325 MG 06/07/2020 12:00:00 AM EDT 1.0 {tablet_as_needed} active Hydrocodone-Acetaminophen 5-325 MG eCW1 ([facility]) 24 HR Metformin hydrochloride 500 MG Ext ended Release Oral Tablet metFORMIN (GLUCOPHATE-XR) 500 MG 24 hr tablet metFORMIN (GLUCOPHATE-XR) 500 MG 24 hr tablet 06/07/2020 12:00:00 AM EDT aborted [facility] empagliflozin 10 MG Oral Tablet [Jardiance] JARDIANCE 10 MG TABS JARDIANCE 10 MG TABS 06/07/2020 12:00:00 AM EDT aborted [facility] Acetaminophen 325 MG / Hydrocodone Brielle trate 5 MG Oral Tablet Hydrocodone- Acetaminophen 5-325 MG Hydrocodone-Acetaminophen 5-325 MG 06/07/2020 12:00:00 AM EDT 1.0 {tablet_as_needed} active Hydrocodone-Acetaminophen 5-325 MG eCW1 ([facility]) Acetaminophen 325 MG / Hydrocodone Brielle trate 5 MG Oral Tablet Hydrocodone- Acetaminophen 5-325 MG Hydrocodone-Acetaminophen 5-325 MG 06/07/2020 12:00:00 AM EDT 1.0 {tablet_as_needed} active Hydrocodone-Acetaminophen 5-325 MG eCW1 ([facility]) Acetaminophen 325 MG / Hydrocodone Brielle trate 5 MG Oral Tablet Hydrocodone- Acetaminophen 5-325 MG Hydrocodone-Acetaminophen 5-325 MG 06/07/2020 12:00:00 AM EDT 1.0 {tablet_as_needed} active Hydrocodone-Acetaminophen 5-325 MG eCW1 ([facility]) Acetaminophen 325 MG / Hydrocodone Brielle trate 5 MG Oral Tablet Hydrocodone- Acetaminophen 5-325 MG Hydrocodone-Acetaminophen 5-325 MG 06/07/2020 12:00:00 AM EDT 1.0 {tablet_as_needed} active Hydrocodone-Acetaminophen 5-325 MG eCW1 ([facility]) Acetaminophen 325 MG / Hydrocodone Brielle trate 5 MG Oral Tablet Hydrocodone- Acetaminophen 5-325 MG Hydrocodone-Acetaminophen 5-325 MG 06/07/2020 12:00:00 AM EDT 1.0 {tablet_as_needed} active Hydrocodone-Acetaminophen 5-325 MG eCW1 ([facility]) Acetaminophen 325 MG / Hydrocodone Brielle trate 5 MG Oral Tablet Hydrocodone- Acetaminophen 5-325 MG Hydrocodone-Acetaminophen 5-325 MG 06/07/2020 12:00:00 AM EDT 1.0 {tablet_as_needed} active Hydrocodone-Acetaminophen 5-325 MG eCW1 ([facility]) Acetaminophen 325 MG / Hydrocodone Brielle trate 5 MG Oral Tablet Hydrocodone- Acetaminophen 5-325 MG Hydrocodone-Acetaminophen 5-325 MG 06/07/2020 12:00:00 AM EDT 1.0 {tablet_as_needed} active Hydrocodone-Acetaminophen 5-325 MG eCW1 ([facility]) Acetaminophen 325 MG / Hydrocodone Brielle trate 5 MG Oral Tablet Hydrocodone- Acetaminophen 5-325 MG Hydrocodone-Acetaminophen 5-325 MG 06/07/2020 12:00:00 AM EDT 1.0 {tablet_as_needed} active Hydrocodone-Acetaminophen 5-325 MG eCW1 ([facility]) Acetaminophen 325 MG / Hydrocodone Brielle trate 5 MG Oral Tablet Hydrocodone- Acetaminophen 5-325 MG Hydrocodone-Acetaminophen 5-325 MG 06/07/2020 12:00:00 AM EDT 1.0 {tablet_as_needed} active Hydrocodone-Acetaminophen 5-325 MG eCW1 ([facility]) Acetaminophen 325 MG / Hydrocodone Brielle trate 5 MG Oral Tablet Hydrocodone- Acetaminophen 5-325 MG Hydrocodone-Acetaminophen 5-325 MG 06/07/2020 12:00:00 AM EDT 1.0 {tablet_as_needed} active Hydrocodone-Acetaminophen 5-325 MG eCW1 ([facility]) Acetaminophen 325 MG / Hydrocodone Brielle trate 5 MG Oral Tablet Hydrocodone- Acetaminophen 5-325 MG Hydrocodone-Acetaminophen 5-325 MG 06/07/2020 12:00:00 AM EDT 1.0 {tablet_as_needed} active Hydrocodone-Acetaminophen 5-325 MG eCW1 ([facility]) Levothyroxine Sodium 0.025 MG Oral Tablet Levothyroxin e Sodium 25 MCG Levothyroxine Sodium 25 MCG 06/03/2020 12:00:00 AM EDT active Levothyroxine Sodium 25 MCG eCW1 ([facility]) Levothyroxine Sodium 0.025 MG Oral Tablet Levothyroxin e Sodium 25 MCG Levothyroxine Sodium 25 MCG 06/03/2020 12:00:00 AM EDT active Levothyroxine Sodium 25 MCG eCW1 ([facility]) Levothyroxine Sodium 0.025 MG Oral Tablet Levothyroxin e Sodium 25 MCG Levothyroxine Sodium 25 MCG 06/03/2020 12:00:00 AM EDT active Levothyroxine Sodium 25 MCG eCW1 ([facility]) Levothyroxine Sodium 0.025 MG Oral Tablet Levothyroxin e Sodium 25 MCG Levothyroxine Sodium 25 MCG 06/03/2020 12:00:00 AM EDT active Levothyroxine Sodium 25 MCG eCW1 ([facility]) Levothyroxine Sodium 0.025 MG Oral Tablet Levothyroxin e Sodium 25 MCG Levothyroxine Sodium 25 MCG 06/03/2020 12:00:00 AM EDT active Levothyroxine Sodium 25 MCG eCW1 ([facility]) Levothyroxine Sodium 0.025 MG Oral Tablet Levothyroxin e Sodium 25 MCG Levothyroxine Sodium 25 MCG 06/03/2020 12:00:00 AM EDT active Levothyroxine Sodium 25 MCG eCW1 ([facility]) Levothyroxine Sodium 0.025 MG Oral Tablet Levothyroxin e Sodium 25 MCG Levothyroxine Sodium 25 MCG 06/03/2020 12:00:00 AM EDT active Levothyroxine Sodium 25 MCG eCW1 ([facility]) Levothyroxine Sodium 0.025 MG Oral Tablet Levothyroxin e Sodium 25 MCG Levothyroxine Sodium 25 MCG 06/03/2020 12:00:00 AM EDT active Levothyroxine Sodium 25 MCG eCW1 ([facility]) Levothyroxine Sodium 0.025 MG Oral Tablet Levothyroxin e Sodium 25 MCG Levothyroxine Sodium 25 MCG 06/03/2020 12:00:00 AM EDT active Levothyroxine Sodium 25 MCG eCW1 ([facility]) Levothyroxine Sodium 0.025 MG Oral Tablet Levothyroxin e Sodium 25 MCG Levothyroxine Sodium 25 MCG 06/03/2020 12:00:00 AM EDT active Levothyroxine Sodium 25 MCG eCW1 ([facility]) Levothyroxine Sodium 0.025 MG Oral Tablet Levothyroxin e Sodium 25 MCG Levothyroxine Sodium 25 MCG 06/03/2020 12:00:00 AM EDT active Levothyroxine Sodium 25 MCG eCW1 ([facility]) Levothyroxine Sodium 0.025 MG Oral Tablet Levothyroxin e Sodium 25 MCG Levothyroxine Sodium 25 MCG 06/03/2020 12:00:00 AM EDT active Levothyroxine Sodium 25 MCG eCW1 ([facility]) Levothyroxine Sodium 0.025 MG Oral Tablet Levothyroxin e Sodium 25 MCG Levothyroxine Sodium 25 MCG 06/03/2020 12:00:00 AM EDT active Levothyroxine Sodium 25 MCG eCW1 ([facility]) Levothyroxine Sodium 0.025 MG Oral Tablet Levothyroxin e Sodium 25 MCG Levothyroxine Sodium 25 MCG 06/03/2020 12:00:00 AM EDT active Levothyroxine Sodium 25 MCG eCW1 ([facility]) Levothyroxine Sodium 0.025 MG Oral Tablet Levothyroxin e Sodium 25 MCG Levothyroxine Sodium 25 MCG 06/03/2020 12:00:00 AM EDT active Levothyroxine Sodium 25 MCG eCW1 ([facility]) Levothyroxine Sodium 0.025 MG Oral Tablet Levothyroxin e Sodium 25 MCG Levothyroxine Sodium 25 MCG 06/03/2020 12:00:00 AM EDT active Levothyroxine Sodium 25 MCG eCW1 ([facility]) Levothyroxine Sodium 0.025 MG Oral Tablet Levothyroxin e Sodium 25 MCG Levothyroxine Sodium 25 MCG 06/03/2020 12:00:00 AM EDT active Levothyroxine Sodium 25 MCG eCW1 ([facility]) Levothyroxine Sodium 0.025 MG Oral Tablet Levothyroxin e Sodium 25 MCG Levothyroxine Sodium 25 MCG 06/03/2020 12:00:00 AM EDT active Levothyroxine Sodium 25 MCG eCW1 ([facility]) Levothyroxine Sodium 0.025 MG Oral Tablet Levothyroxin e Sodium 25 MCG Levothyroxine Sodium 25 MCG 06/03/2020 12:00:00 AM EDT active Levothyroxine Sodium 25 MCG eCW1 ([facility]) Levothyroxine Sodium 0.025 MG Oral Tablet Levothyroxin e Sodium 25 MCG Levothyroxine Sodium 25 MCG 06/03/2020 12:00:00 AM EDT active Levothyroxine Sodium 25 MCG eCW1 ([facility]) Levothyroxine Sodium 0.025 MG Oral Tablet Levothyroxin e Sodium 25 MCG Levothyroxine Sodium 25 MCG 06/03/2020 12:00:00 AM EDT active Levothyroxine Sodium 25 MCG eCW1 ([facility]) Levothyroxine Sodium 0.025 MG Oral Tablet Levothyroxin e Sodium 25 MCG Levothyroxine Sodium 25 MCG 06/03/2020 12:00:00 AM EDT active Levothyroxine Sodium 25 MCG eCW1 ([facility]) Levothyroxine Sodium 0.025 MG Oral Tablet Levothyroxin e Sodium 25 MCG Levothyroxine Sodium 25 MCG 06/03/2020 12:00:00 AM EDT active Levothyroxine Sodium 25 MCG eCW1 ([facility]) Levothyroxine Sodium 0.025 MG Oral Tablet Levothyroxin e Sodium 25 MCG Levothyroxine Sodium 25 MCG 06/03/2020 12:00:00 AM EDT active Levothyroxine Sodium 25 MCG eCW1 ([facility]) Levothyroxine Sodium 0.025 MG Oral Tablet Levothyroxin e Sodium 25 MCG Levothyroxine Sodium 25 MCG 06/03/2020 12:00:00 AM EDT active Levothyroxine Sodium 25 MCG eCW1 ([facility]) Levothyroxine Sodium 0.025 MG Oral Tablet Levothyroxin e Sodium 25 MCG Levothyroxine Sodium 25 MCG 06/03/2020 12:00:00 AM EDT active Levothyroxine Sodium 25 MCG eCW1 ([facility]) Levothyroxine Sodium 0.025 MG Oral Tablet Levothyroxin e Sodium 25 MCG Levothyroxine Sodium 25 MCG 06/03/2020 12:00:00 AM EDT active Levothyroxine Sodium 25 MCG eCW1 ([facility]) Losartan Potassium 50 MG Oral Tablet Losartan Potassium 50 M G 05/17/2020 12:00:00 AM EDT 1.5 {tablets} active L osartan Potassium 50 MG eCW1 ([facility]) Losartan Potassium 50 MG Oral Tablet Losartan Potassium 50 M G 05/17/2020 12:00:00 AM EDT active Losartan Potassium 50 MG eCW1 ([facility]) Losartan Potassium 50 MG Oral Tablet Losartan Potassium 50 M G 05/17/2020 12:00:00 AM EDT 1.5 {tablets} active L osartan Potassium 50 MG eCW1 ([facility]) Losartan Potassium 100 MG Oral Tablet Losartan Potassium 100 MG 05/17/2020 12:00:00 AM EDT 1.0 {tablet} active Lo sartan Potassium 100 MG eCW1 ([facility]) Losartan Potassium 50 MG Oral Tablet Losartan Potassium 50 M G 05/17/2020 12:00:00 AM EDT active Losartan Potassium 50 MG eCW1 ([facility]) Losartan Potassium 50 MG Oral Tablet Losartan Potassium 50 M G 05/17/2020 12:00:00 AM EDT 1.5 {tablets} active L osartan Potassium 50 MG eCW1 ([facility]) Losartan Potassium 100 MG Oral Tablet Losartan Potassium 100 MG 05/17/2020 12:00:00 AM EDT 1.0 {tablet} active Lo sartan Potassium 100 MG eCW1 ([facility]) Losartan Potassium 50 MG Oral Tablet Losartan Potassium 50 M G 05/17/2020 12:00:00 AM EDT active Losartan Potassium 50 MG eCW1 ([facility]) Losartan Potassium 50 MG Oral Tablet losartan (COZAAR) 50 MG tablet losartan (COZAAR) 50 MG tablet 05/17/2020 12:00:00 AM EDT a [facility] Losartan Potassium 100 MG Oral Tablet Losartan Potassium 100 MG 05/17/2020 12:00:00 AM EDT 1.0 {tablet} active Lo sartan Potassium 100 MG eCW1 ([facility]) Losartan Potassium 50 MG Oral Tablet Losartan Potassium 50 M G 05/17/2020 12:00:00 AM EDT active Losartan Potassium 50 MG eCW1 ([facility]) Losartan Potassium 100 MG Oral Tablet Losartan Potassium 100 MG 05/17/2020 12:00:00 AM EDT 1.0 {tablet} active Lo sartan Potassium 100 MG eCW1 ([facility]) Losartan Potassium 50 MG Oral Tablet Losartan Potassium 50 M G 05/17/2020 12:00:00 AM EDT active Losartan Potassium 50 MG eCW1 ([facility]) Losartan Potassium 50 MG Oral Tablet Losartan Potassium 50 M G 05/17/2020 12:00:00 AM EDT active Losartan Potassium 50 MG eCW1 ([facility]) Losartan Potassium 50 MG Oral Tablet Losartan Potassium 50 M G 05/17/2020 12:00:00 AM EDT 1.5 {tablets} active L osartan Potassium 50 MG eCW1 ([facility]) Losartan Potassium 50 MG Oral Tablet Losartan Potassium 50 M G 05/17/2020 12:00:00 AM EDT 1.5 {tablets} active L osartan Potassium 50 MG eCW1 ([facility]) Losartan Potassium 50 MG Oral Tablet Losartan Potassium 50 M G 05/17/2020 12:00:00 AM EDT active Losartan Potassium 50 MG eCW1 ([facility]) Losartan Potassium 50 MG Oral Tablet Losartan Potassium 50 M G 05/17/2020 12:00:00 AM EDT active Losartan Potassium 50 MG eCW1 ([facility]) Losartan Potassium 50 MG Oral Tablet Losartan Potassium 50 M G 05/17/2020 12:00:00 AM EDT active Losartan Potassium 50 MG eCW1 ([facility]) Losartan Potassium 100 MG Oral Tablet Losartan Potassium 100 MG 05/17/2020 12:00:00 AM EDT 1.0 {tablet} active Lo sartan Potassium 100 MG eCW1 ([facility]) Losartan Potassium 50 MG Oral Tablet Losartan Potassium 50 M G 05/17/2020 12:00:00 AM EDT active Losartan Potassium 50 MG eCW1 ([facility]) Losartan Potassium 50 MG Oral Tablet Losartan Potassium 50 M G 05/17/2020 12:00:00 AM EDT active Losartan Potassium 50 MG eCW1 ([facility]) Losartan Potassium 100 MG Oral Tablet Losartan Potassium 100 MG 05/17/2020 12:00:00 AM EDT 1.0 {tablet} active Lo sartan Potassium 100 MG eCW1 ([facility]) Losartan Potassium 50 MG Oral Tablet Losartan Potassium 50 M G 05/17/2020 12:00:00 AM EDT active Losartan Potassium 50 MG eCW1 ([facility]) Losartan Potassium 50 MG Oral Tablet Losartan Potassium 50 M G 05/17/2020 12:00:00 AM EDT active Losartan Potassium 50 MG eCW1 ([facility]) Losartan Potassium 50 MG Oral Tablet Losartan Potassium 50 M G 05/17/2020 12:00:00 AM EDT active Losartan Potassium 50 MG eCW1 ([facility]) Losartan Potassium 50 MG Oral Tablet Losartan Potassium 50 M G 05/17/2020 12:00:00 AM EDT active Losartan Potassium 50 MG eCW1 ([facility]) Losartan Potassium 50 MG Oral Tablet Losartan Potassium 50 M G 05/17/2020 12:00:00 AM EDT active Losartan Potassium 50 MG eCW1 ([facility]) Losartan Potassium 50 MG Oral Tablet Losartan Potassium 50 M G 05/17/2020 12:00:00 AM EDT 1.5 {tablets} active L osartan Potassium 50 MG eCW1 ([facility]) Losartan Potassium 50 MG Oral Tablet Losartan Potassium 50 M G 05/17/2020 12:00:00 AM EDT active Losartan Potassium 50 MG eCW1 ([facility]) Losartan Potassium 50 MG Oral Tablet Losartan Potassium 50 M G 05/17/2020 12:00:00 AM EDT active Losartan Potassium 50 MG eCW1 ([facility]) Losartan Potassium 50 MG Oral Tablet Losartan Potassium 50 M G 05/17/2020 12:00:00 AM EDT active Losartan Potassium 50 MG eCW1 ([facility]) Losartan Potassium 50 MG Oral Tablet Losartan Potassium 50 M G 05/17/2020 12:00:00 AM EDT active Losartan Potassium 50 MG eCW1 ([facility]) Losartan Potassium 100 MG Oral Tablet Losartan Potassium 100 MG 05/17/2020 12:00:00 AM EDT 1.0 {tablet} active Lo sartan Potassium 100 MG eCW1 ([facility]) Losartan Potassium 50 MG Oral Tablet Losartan Potassium 50 M G 05/17/2020 12:00:00 AM EDT active Losartan Potassium 50 MG eCW1 ([facility]) Losartan Potassium 100 MG Oral Tablet Losartan Potassium 100 MG 05/17/2020 12:00:00 AM EDT 1.0 {tablet} active Lo sartan Potassium 100 MG eCW1 ([facility]) Losartan Potassium 100 MG Oral Tablet Losartan Potassium 100 MG 05/17/2020 12:00:00 AM EDT 1.0 {tablet} active Lo sartan Potassium 100 MG eCW1 ([facility]) Losartan Potassium 50 MG Oral Tablet Losartan Potassium 50 M G 05/17/2020 12:00:00 AM EDT active Losartan Potassium 50 MG eCW1 ([facility]) Losartan Potassium 100 MG Oral Tablet Losartan Potassium 100 MG 05/17/2020 12:00:00 AM EDT 1.0 {tablet} active Lo sartan Potassium 100 MG eCW1 ([facility]) Losartan Potassium 100 MG Oral Tablet Losartan Potassium 100 MG 05/17/2020 12:00:00 AM EDT 1.0 {tablet} active Lo sartan Potassium 100 MG eCW1 ([facility]) Losartan Potassium 100 MG Oral Tablet Losartan Potassium 100 MG 05/17/2020 12:00:00 AM EDT 1.0 {tablet} active Lo sartan Potassium 100 MG eCW1 ([facility]) Acetaminophen 325 MG / Hydrocodone Brielle trate 5 MG Oral Tablet Hydrocodone- Acetaminophen 5-325 MG Hydrocodone-Acetaminophen 5-325 MG 05/12/2020 12:00:00 AM EDT 1.0 {tablet_as_needed} active Hydrocodone-Acetaminophen 5-325 MG eCW1 ([facility]) Acetaminophen 325 MG / Hydrocodone Brielle trate 5 MG Oral Tablet Hydrocodone- Acetaminophen 5-325 MG Hydrocodone-Acetaminophen 5-325 MG 05/12/2020 12:00:00 AM EDT 1.0 {tablet_as_needed} active Hydrocodone-Acetaminophen 5-325 MG eCW1 ([facility]) Acetaminophen 325 MG / Hydrocodone Brielle trate 5 MG Oral Tablet Hydrocodone- Acetaminophen 5-325 MG Hydrocodone-Acetaminophen 5-325 MG 05/12/2020 12:00:00 AM EDT 1.0 {tablet_as_needed} active Hydrocodone-Acetaminophen 5-325 MG eCW1 ([facility]) Acetaminophen 325 MG / Hydrocodone Brielle trate 5 MG Oral Tablet Hydrocodone- Acetaminophen 5-325 MG Hydrocodone-Acetaminophen 5-325 MG 05/12/2020 12:00:00 AM EDT 1.0 {tablet_as_needed} active Hydrocodone-Acetaminophen 5-325 MG eCW1 ([facility]) empagliflozin 10 MG Oral Tablet [Jardiance] Jardiance 10 MG Jardiance 10 MG 04/21/2020 12:00:00 AM EST 1.0 {tablet} active Jardiance 10 MG eCW1 ([facility]) empagliflozin 10 MG Oral Tablet [Jardiance] Jardiance 10 MG Jardiance 10 MG 04/21/2020 12:00:00 AM EST 1.0 {tablet} active Jardiance 10 MG eCW1 ([facility]) empagliflozin 10 MG Oral Tablet [Jardiance] Jardiance 10 MG Jardiance 10 MG 04/21/2020 12:00:00 AM EST 1.0 {tablet} active Jardiance 10 MG eCW1 ([facility]) empagliflozin 10 MG Oral Tablet [Jardiance] Jardiance 10 MG Jardiance 10 MG 04/21/2020 12:00:00 AM EST 1.0 {tablet} active Jardiance 10 MG eCW1 ([facility]) empagliflozin 10 MG Oral Tablet [Jardiance] Jardiance 10 MG Jardiance 10 MG 04/21/2020 12:00:00 AM EST 1.0 {tablet} active Jardiance 10 MG eCW1 ([facility]) carvedilol 6.25 MG Oral Tablet carvedilol (COREG) 6.25 MG tablet carvedilol (COREG) 6.25 MG tablet 04/15/2020 12:00:00 AM EST 6.25 mg Oral aborted Take 1 tablet (6.25 mg total) by mouth 2 (two) times a day [facility] Acetaminophen 325 MG / Hydrocodone Brielle trate 5 MG Oral Tablet Hydrocodone- Acetaminophen 5-325 MG Hydrocodone-Acetaminophen 5-325 MG 04/11/2020 12:00:00 AM EST 1.0 {tablet_as_needed} active Hydrocodone-Acetaminophen 5-325 MG eCW1 ([facility]) Acetaminophen 325 MG / Hydrocodone Brielle trate 5 MG Oral Tablet Hydrocodone- Acetaminophen 5-325 MG Hydrocodone-Acetaminophen 5-325 MG 04/11/2020 12:00:00 AM EST 1.0 {tablet_as_needed} active Hydrocodone-Acetaminophen 5-325 MG eCW1 ([facility]) Acetaminophen 325 MG / Hydrocodone Brielle trate 5 MG Oral Tablet Hydrocodone- Acetaminophen 5-325 MG Hydrocodone-Acetaminophen 5-325 MG 04/11/2020 12:00:00 AM EST 1.0 {tablet_as_needed} active Hydrocodone-Acetaminophen 5-325 MG eCW1 ([facility]) Acetaminophen 325 MG / Hydrocodone Brielle trate 5 MG Oral Tablet Hydrocodone- Acetaminophen 5-325 MG Hydrocodone-Acetaminophen 5-325 MG 04/11/2020 12:00:00 AM EST 1.0 {tablet_as_needed} active Hydrocodone-Acetaminophen 5-325 MG eCW1 ([facility]) Acetaminophen 325 MG / Hydrocodone Brielle trate 5 MG Oral Tablet Hydrocodone- Acetaminophen 5-325 MG Hydrocodone-Acetaminophen 5-325 MG 04/11/2020 12:00:00 AM EST 1.0 {tablet_as_needed} active Hydrocodone-Acetaminophen 5-325 MG eCW1 ([facility]) Acetaminophen 325 MG / Hydrocodone Brielle trate 5 MG Oral Tablet Hydrocodone- Acetaminophen 5-325 MG Hydrocodone-Acetaminophen 5-325 MG 04/11/2020 12:00:00 AM EST 1.0 {tablet_as_needed} active Hydrocodone-Acetaminophen 5-325 MG eCW1 ([facility]) Acetaminophen 325 MG / Hydrocodone Brielle trate 5 MG Oral Tablet Hydrocodone- Acetaminophen 5-325 MG Hydrocodone-Acetaminophen 5-325 MG 04/11/2020 12:00:00 AM EST 1.0 {tablet_as_needed} active Hydrocodone-Acetaminophen 5-325 MG eCW1 ([facility]) Amlodipine 2.5 MG Oral Tablet AmLODIPine Besylate 2.5 MG AmLODIPine Besylate 2.5 MG 04/04/2020 12:00:00 AM EST 1.0 {tablet} activ e AmLODIPine Besylate 2.5 MG eCW1 ([facility]) Amlodipine 2.5 MG Oral Tablet AmLODIPine Besylate 2.5 MG AmLODIPine Besylate 2.5 MG 04/04/2020 12:00:00 AM EST 1.0 {tablet} activ e AmLODIPine Besylate 2.5 MG eCW1 ([facility]) Amlodipine 2.5 MG Oral Tablet AmLODIPine Besylate 2.5 MG AmLODIPine Besylate 2.5 MG 04/04/2020 12:00:00 AM EST 1.0 {tablet} activ e AmLODIPine Besylate 2.5 MG eCW1 ([facility]) Amlodipine 2.5 MG Oral Tablet AmLODIPine Besylate 2.5 MG AmLODIPine Besylate 2.5 MG 04/04/2020 12:00:00 AM EST 1.0 {tablet} activ e AmLODIPine Besylate 2.5 MG eCW1 ([facility]) Amlodipine 2.5 MG Oral Tablet AmLODIPine Besylate 2.5 MG AmLODIPine Besylate 2.5 MG 04/04/2020 12:00:00 AM EST 1.0 {tablet} activ e AmLODIPine Besylate 2.5 MG eCW1 ([facility]) Amlodipine 2.5 MG Oral Tablet AmLODIPine Besylate 2.5 MG AmLODIPine Besylate 2.5 MG 04/04/2020 12:00:00 AM EST 1.0 {tablet} activ e AmLODIPine Besylate 2.5 MG eCW1 ([facility]) Amlodipine 2.5 MG Oral Tablet AmLODIPine Besylate 2.5 MG AmLODIPine Besylate 2.5 MG 04/04/2020 12:00:00 AM EST 1.0 {tablet} activ e AmLODIPine Besylate 2.5 MG eCW1 ([facility]) Amlodipine 2.5 MG Oral Tablet AmLODIPine Besylate 2.5 MG AmLODIPine Besylate 2.5 MG 04/04/2020 12:00:00 AM EST 1.0 {tablet} activ e AmLODIPine Besylate 2.5 MG eCW1 ([facility]) Amlodipine 2.5 MG Oral Tablet amLODIPine (NORVASC) 2.5 MG tablet amLODIPine (NORVASC) 2.5 MG tablet 04/04/2020 12:00:00 AM EST 5 mg Oral aborted Take 5 mg by mouth daily [facility] Amlodipine 2.5 MG Oral Tablet AmLODIPine Besylate 2.5 MG AmLODIPine Besylate 2.5 MG 04/04/2020 12:00:00 AM EST 1.0 {tablet} activ e AmLODIPine Besylate 2.5 MG eCW1 ([facility]) Potassium Chloride 10 MEQ Extended Relea se Oral Tablet potassium chloride (K- DUR) 10 MEQ tablet potassium chloride (K-DUR) 10 MEQ tablet 04/02/2020 12 :00:[address] [facility] 24 HR Metformin hydrochloride 500 MG Ext ended Release Oral Tablet metFORMIN (GLUCOPHATE-XR) 500 MG 24 hr tablet metFORMIN (GLUCOPHATE-XR) 500 MG 24 hr tablet 03/19/2020 12:00:00 AM EST aborted [facility] Sucralfate 1000 MG Oral Tablet [Carafate] Carafate 1 GM Brooke fate 1 GM 03/08/2020 12:00:00 AM EST 1.0 {tablet_on_an_empty_stomach} active Carafate 1 GM W1 ([facility]) Sucralfate 1000 MG Oral Tablet [Carafate] Carafate 1 GM Brooke fate 1 GM 03/08/2020 12:00:00 AM EST 1.0 {tablet_on_an_empty_stomach} active Carafate 1 GM [facility] ([facility]) Sucralfate 1000 MG Oral Tablet [Carafate] Carafate 1 GM Brooke fate 1 GM 03/08/2020 12:00:00 AM EST 1.0 {tablet_on_an_empty_stomach} active Carafate 1 GM W1 ([facility]) Sucralfate 1000 MG Oral Tablet [Carafate] Carafate 1 GM Brooke fate 1 GM 03/08/2020 12:00:00 AM EST 1.0 {tablet_on_an_empty_stomach} active Carafate 1 GM W1 ([facility]) Sucralfate 1000 MG Oral Tablet [Carafate] Carafate 1 GM Brooke fate 1 GM 03/08/2020 12:00:00 AM EST 1.0 {tablet_on_an_empty_stomach} active Carafate 1 GM W1 ([facility]) Sucralfate 1000 MG Oral Tablet [Carafate] Carafate 1 GM Brooke fate 1 GM 03/08/2020 12:00:00 AM EST 1.0 {tablet_on_an_empty_stomach} active Carafate 1 GM eCW1 ([facility]) Sucralfate 1000 MG Oral Tablet sucralfate (CARAFATE) 1 g tablet sucralfate (CARAFATE) 1 g tablet 03/08/2020 12:00:00 AM EST 1 g Oral active Take 1 g by mouth 3 (three) times a day [facility] Acetaminophen 325 MG / Hydrocodone Brielle trate 5 MG Oral Tablet Hydrocodone- Acetaminophen 5-325 MG Hydrocodone-Acetaminophen 5-325 MG 02/25/2020 12:00:00 AM EST 1.0 {tablet_as_needed} active Hydrocodone-Acetaminophen 5-325 MG eCW1 ([facility]) Acetaminophen 325 MG / Hydrocodone Brielle trate 5 MG Oral Tablet Hydrocodone- Acetaminophen 5-325 MG Hydrocodone-Acetaminophen 5-325 MG 02/25/2020 12:00:00 AM EST 1.0 {tablet_as_needed} active Hydrocodone-Acetaminophen 5-325 MG eCW1 ([facility]) Acetaminophen 325 MG / Hydrocodone Brielle trate 5 MG Oral Tablet Hydrocodone- Acetaminophen 5-325 MG Hydrocodone-Acetaminophen 5-325 MG 02/25/2020 12:00:00 AM EST 1.0 {tablet_as_needed} active Hydrocodone-Acetaminophen 5-325 MG eCW1 ([facility]) Acetaminophen 325 MG / Hydrocodone Brielle trate 5 MG Oral Tablet Hydrocodone- Acetaminophen 5-325 MG Hydrocodone-Acetaminophen 5-325 MG 02/25/2020 12:00:00 AM EST 1.0 {tablet_as_needed} active Hydrocodone-Acetaminophen 5-325 MG eCW1 ([facility]) Acetaminophen 325 MG / Hydrocodone Brielle trate 5 MG Oral Tablet Hydrocodone- Acetaminophen 5-325 MG Hydrocodone-Acetaminophen 5-325 MG 02/25/2020 12:00:00 AM EST 1.0 {tablet_as_needed} active Hydrocodone-Acetaminophen 5-325 MG eCW1 ([facility]) Acetaminophen 325 MG / Hydrocodone Brielle trate 5 MG Oral Tablet Hydrocodone- Acetaminophen 5-325 MG Hydrocodone-Acetaminophen 5-325 MG 02/25/2020 12:00:00 AM EST 1.0 {tablet_as_needed} active Hydrocodone-Acetaminophen 5-325 MG eCW1 ([facility]) Acetaminophen 325 MG / Hydrocodone Brielle trate 5 MG Oral Tablet Hydrocodone- Acetaminophen 5-325 MG Hydrocodone-Acetaminophen 5-325 MG 02/25/2020 12:00:00 AM EST 1.0 {tablet_as_needed} active Hydrocodone-Acetaminophen 5-325 MG eCW1 ([facility]) Acetaminophen 325 MG / Hydrocodone Brielle trate 5 MG Oral Tablet Hydrocodone- Acetaminophen 5-325 MG Hydrocodone-Acetaminophen 5-325 MG 02/25/2020 12:00:00 AM EST 1.0 {tablet_as_needed} active Hydrocodone-Acetaminophen 5-325 MG eCW1 ([facility]) Acetaminophen 325 MG / Hydrocodone Brielle trate 5 MG Oral Tablet Hydrocodone- Acetaminophen 5-325 MG Hydrocodone-Acetaminophen 5-325 MG 02/25/2020 12:00:00 AM EST 1.0 {tablet_as_needed} active Hydrocodone-Acetaminophen 5-325 MG eCW1 ([facility]) Acetaminophen 325 MG / Hydrocodone Brielle trate 5 MG Oral Tablet Hydrocodone- Acetaminophen 5-325 MG Hydrocodone-Acetaminophen 5-325 MG 02/25/2020 12:00:00 AM EST 1.0 {tablet_as_needed} active Hydrocodone-Acetaminophen 5-325 MG eCW1 ([facility]) torsemide 20 MG Oral Tablet Torsemide 20 MG Torsemide 20 MG 02/24/2020 12:00:00 AM EST active Torsemide 20 MG e CW1 ([facility]) torsemide 20 MG Oral Tablet Torsemide 20 MG Torsemide 20 MG 02/24/2020 12:00:00 AM EST active Torsemide 20 MG e CW1 ([facility]) torsemide 10 MG Oral Tablet Torsemide 10 MG Torsemide 10 MG 02/24/2020 12:00:00 AM EST active Torsemide 10 MG e CW1 ([facility]) torsemide 10 MG Oral Tablet Torsemide 10 MG Torsemide 10 MG 02/24/2020 12:00:00 AM EST active Torsemide 10 MG e CW1 ([facility]) torsemide 20 MG Oral Tablet Torsemide 20 MG Torsemide 20 MG 02/24/2020 12:00:00 AM EST active Torsemide 20 MG e CW1 ([facility]) torsemide 20 MG Oral Tablet Torsemide 20 MG Torsemide 20 MG 02/24/2020 12:00:00 AM EST active Torsemide 20 MG e CW1 ([facility]) torsemide 10 MG Oral Tablet Torsemide 10 MG Torsemide 10 MG 02/24/2020 12:00:00 AM EST active Torsemide 10 MG e CW1 ([facility]) torsemide 10 MG Oral Tablet Torsemide 10 MG Torsemide 10 MG 02/24/2020 12:00:00 AM EST active Torsemide 10 MG e CW1 ([facility]) torsemide 20 MG Oral Tablet Torsemide 20 MG Torsemide 20 MG 02/24/2020 12:00:00 AM EST active Torsemide 20 MG e CW1 ([facility]) torsemide 20 MG Oral Tablet Torsemide 20 MG Torsemide 20 MG 02/24/2020 12:00:00 AM EST active Torsemide 20 MG e CW1 ([facility]) torsemide 10 MG Oral Tablet Torsemide 10 MG Torsemide 10 MG 02/24/2020 12:00:00 AM EST active Torsemide 10 MG e CW1 ([facility]) torsemide 10 MG Oral Tablet Torsemide 10 MG Torsemide 10 MG 02/24/2020 12:00:00 AM EST active Torsemide 10 MG e CW1 ([facility]) torsemide 10 MG Oral Tablet Torsemide 10 MG Torsemide 10 MG 02/24/2020 12:00:00 AM EST active Torsemide 10 MG e CW1 ([facility]) torsemide 20 MG Oral Tablet Torsemide 20 MG Torsemide 20 MG 02/24/2020 12:00:00 AM EST active Torsemide 20 MG e CW1 ([facility]) torsemide 10 MG Oral Tablet Torsemide 10 MG Torsemide 10 MG 02/24/2020 12:00:00 AM EST active Torsemide 10 MG e CW1 ([facility]) torsemide 10 MG Oral Tablet Torsemide 10 MG Torsemide 10 MG 02/24/2020 12:00:00 AM EST active Torsemide 10 MG e CW1 ([facility]) torsemide 10 MG Oral Tablet Torsemide 10 MG Torsemide 10 MG 02/24/2020 12:00:00 AM EST active Torsemide 10 MG e CW1 ([facility]) torsemide 10 MG Oral Tablet Torsemide 10 MG Torsemide 10 MG 02/24/2020 12:00:00 AM EST active Torsemide 10 MG e CW1 ([facility]) torsemide 10 MG Oral Tablet Torsemide 10 MG Torsemide 10 MG 02/24/2020 12:00:00 AM EST active Torsemide 10 MG e CW1 ([facility]) torsemide 20 MG Oral Tablet Torsemide 20 MG Torsemide 20 MG 02/24/2020 12:00:00 AM EST active Torsemide 20 MG e CW1 ([facility]) torsemide 20 MG Oral Tablet Torsemide 20 MG Torsemide 20 MG 02/24/2020 12:00:00 AM EST active Torsemide 20 MG e CW1 ([facility]) torsemide 20 MG Oral Tablet Torsemide 20 MG Torsemide 20 MG 02/24/2020 12:00:00 AM EST active Torsemide 20 MG e CW1 ([facility]) torsemide 10 MG Oral Tablet Torsemide 10 MG Torsemide 10 MG 02/24/2020 12:00:00 AM EST active Torsemide 10 MG e CW1 ([facility]) torsemide 20 MG Oral Tablet Torsemide 20 MG Torsemide 20 MG 02/24/2020 12:00:00 AM EST active Torsemide 20 MG e CW1 ([facility]) torsemide 20 MG Oral Tablet Torsemide 20 MG Torsemide 20 MG 02/24/2020 12:00:00 AM EST active Torsemide 20 MG e CW1 ([facility]) torsemide 20 MG Oral Tablet Torsemide 20 MG Torsemide 20 MG 02/24/2020 12:00:00 AM EST active Torsemide 20 MG e CW1 ([facility]) torsemide 20 MG Oral Tablet Torsemide 20 MG Torsemide 20 MG 02/24/2020 12:00:00 AM EST active Torsemide 20 MG e CW1 ([facility]) torsemide 10 MG Oral Tablet Torsemide 10 MG Torsemide 10 MG 02/24/2020 12:00:00 AM EST active Torsemide 10 MG e CW1 ([facility]) torsemide 20 MG Oral Tablet Torsemide 20 MG Torsemide 20 MG 02/24/2020 12:00:00 AM EST active Torsemide 20 MG e CW1 ([facility]) torsemide 20 MG Oral Tablet Torsemide 20 MG Torsemide 20 MG 02/24/2020 12:00:00 AM EST active Torsemide 20 MG e CW1 ([facility]) torsemide 10 MG Oral Tablet Torsemide 10 MG Torsemide 10 MG 02/24/2020 12:00:00 AM EST active Torsemide 10 MG e CW1 ([facility]) torsemide 20 MG Oral Tablet Torsemide 20 MG Torsemide 20 MG 02/24/2020 12:00:00 AM EST active Torsemide 20 MG e CW1 ([facility]) torsemide 10 MG Oral Tablet Torsemide 10 MG Torsemide 10 MG 02/24/2020 12:00:00 AM EST active Torsemide 10 MG e CW1 ([facility]) torsemide 20 MG Oral Tablet Torsemide 20 MG Torsemide 20 MG 02/24/2020 12:00:00 AM EST active Torsemide 20 MG e CW1 ([facility]) torsemide 20 MG Oral Tablet Torsemide 20 MG Torsemide 20 MG 02/24/2020 12:00:00 AM EST active Torsemide 20 MG e CW1 ([facility]) torsemide 10 MG Oral Tablet Torsemide 10 MG Torsemide 10 MG 02/24/2020 12:00:00 AM EST active Torsemide 10 MG e CW1 ([facility]) torsemide 20 MG Oral Tablet Torsemide 20 MG Torsemide 20 MG 02/24/2020 12:00:00 AM EST active Torsemide 20 MG e CW1 ([facility]) torsemide 10 MG Oral Tablet Torsemide 10 MG Torsemide 10 MG 02/24/2020 12:00:00 AM EST active Torsemide 10 MG e CW1 ([facility]) torsemide 10 MG Oral Tablet Torsemide 10 MG Torsemide 10 MG 02/24/2020 12:00:00 AM EST active Torsemide 10 MG e CW1 ([facility]) torsemide 10 MG Oral Tablet Torsemide 10 MG Torsemide 10 MG 02/24/2020 12:00:00 AM EST active Torsemide 10 MG e CW1 ([facility]) torsemide 10 MG Oral Tablet Torsemide 10 MG Torsemide 10 MG 02/24/2020 12:00:00 AM EST active Torsemide 10 MG e CW1 ([facility]) torsemide 10 MG Oral Tablet Torsemide 10 MG Torsemide 10 MG 02/24/2020 12:00:00 AM EST active Torsemide 10 MG e CW1 ([facility]) torsemide 10 MG Oral Tablet Torsemide 10 MG Torsemide 10 MG 02/24/2020 12:00:00 AM EST active Torsemide 10 MG e CW1 ([facility]) torsemide 10 MG Oral Tablet Torsemide 10 MG Torsemide 10 MG 02/24/2020 12:00:00 AM EST active Torsemide 10 MG e CW1 ([facility]) torsemide 20 MG Oral Tablet Torsemide 20 MG Torsemide 20 MG 02/24/2020 12:00:00 AM EST active Torsemide 20 MG e CW1 ([facility]) torsemide 10 MG Oral Tablet Torsemide 10 MG Torsemide 10 MG 02/24/2020 12:00:00 AM EST active Torsemide 10 MG e CW1 ([facility]) torsemide 20 MG Oral Tablet Torsemide 20 MG Torsemide 20 MG 02/24/2020 12:00:00 AM EST active Torsemide 20 MG e CW1 ([facility]) torsemide 20 MG Oral Tablet Torsemide 20 MG Torsemide 20 MG 02/24/2020 12:00:00 AM EST active Torsemide 20 MG e CW1 ([facility]) torsemide 10 MG Oral Tablet Torsemide 10 MG Torsemide 10 MG 02/24/2020 12:00:00 AM EST active Torsemide 10 MG e CW1 ([facility]) torsemide 20 MG Oral Tablet Torsemide 20 MG Torsemide 20 MG 02/24/2020 12:00:00 AM EST active Torsemide 20 MG e CW1 ([facility]) torsemide 10 MG Oral Tablet Torsemide 10 MG Torsemide 10 MG 02/24/2020 12:00:00 AM EST active Torsemide 10 MG e CW1 ([facility]) torsemide 10 MG Oral Tablet Torsemide 10 MG Torsemide 10 MG 02/24/2020 12:00:00 AM EST active Torsemide 10 MG e CW1 ([facility]) torsemide 20 MG Oral Tablet Torsemide 20 MG Torsemide 20 MG 02/24/2020 12:00:00 AM EST active Torsemide 20 MG e CW1 ([facility]) torsemide 10 MG Oral Tablet Torsemide 10 MG Torsemide 10 MG 02/24/2020 12:00:00 AM EST active Torsemide 10 MG e CW1 ([facility]) torsemide 20 MG Oral Tablet Torsemide 20 MG Torsemide 20 MG 02/24/2020 12:00:00 AM EST active Torsemide 20 MG e CW1 ([facility]) torsemide 20 MG Oral Tablet Torsemide 20 MG Torsemide 20 MG 02/24/2020 12:00:00 AM EST active Torsemide 20 MG e CW1 ([facility]) torsemide 10 MG Oral Tablet Torsemide 10 MG Torsemide 10 MG 02/24/2020 12:00:00 AM EST active Torsemide 10 MG e CW1 ([facility]) torsemide 20 MG Oral Tablet Torsemide 20 MG Torsemide 20 MG 02/24/2020 12:00:00 AM EST active Torsemide 20 MG e CW1 ([facility]) torsemide 20 MG Oral Tablet Torsemide 20 MG Torsemide 20 MG 02/24/2020 12:00:00 AM EST active Torsemide 20 MG e CW1 ([facility]) torsemide 20 MG Oral Tablet Torsemide 20 MG Torsemide 20 MG 02/24/2020 12:00:00 AM EST active Torsemide 20 MG e CW1 ([facility]) Walker - Walker - 02/15/2020 12:00:00 AM EST activ e Walker - eCW1 ([facility]) Walker - Walker - 02/15/2020 12:00:00 AM EST activ e Walker - eCW1 ([facility]) Walker - Walker - 02/15/2020 12:00:00 AM EST activ e Walker - eCW1 ([facility]) Walker - Walker - 02/15/2020 12:00:00 AM EST activ e Walker - eCW1 ([facility]) Walker - Walker - 02/15/2020 12:00:00 AM EST activ e Walker - eCW1 ([facility]) Walker - Walker - 02/15/2020 12:00:00 AM EST activ e Walker - eCW1 ([facility]) Walker - Walker - 02/15/2020 12:00:00 AM EST activ e Walker - eCW1 ([facility]) Walker - Walker - 02/15/2020 12:00:00 AM EST activ e Walker - eCW1 ([facility]) Walker - Walker - 02/15/2020 12:00:00 AM EST activ e Walker - eCW1 ([facility]) Walker - Walker - 02/15/2020 12:00:00 AM EST activ e Walker - eCW1 ([facility]) Walker - Walker - 02/15/2020 12:00:00 AM EST activ e Walker - eCW1 ([facility]) Walker - Walker - 02/15/2020 12:00:00 AM EST activ e Walker - eCW1 ([facility]) Walker - Walker - 02/15/2020 12:00:00 AM EST activ e Walker - eCW1 ([facility]) Walker - Walker - 02/15/2020 12:00:00 AM EST activ e Walker - eCW1 ([facility]) Walker - Walker - 02/15/2020 12:00:00 AM EST activ e Walker - eCW1 ([facility]) Walker - Walker - 02/15/2020 12:00:00 AM EST activ e Walker - eCW1 ([facility]) Walker - Walker - 02/15/2020 12:00:00 AM EST activ e Walker - eCW1 ([facility]) Walker - Walker - 02/15/2020 12:00:00 AM EST activ e Walker - eCW1 ([facility]) Walker - Walker - 02/15/2020 12:00:00 AM EST activ e Walker - eCW1 ([facility]) Walker - Walker - 02/15/2020 12:00:00 AM EST activ e Walker - eCW1 ([facility]) Walker - Walker - 02/15/2020 12:00:00 AM EST activ e Walker - eCW1 ([facility]) Walker - Walker - 02/15/2020 12:00:00 AM EST activ e Walker - eCW1 ([facility]) Walker - Walker - 02/15/2020 12:00:00 AM EST activ e Walker - eCW1 ([facility]) Walker - Walker - 02/15/2020 12:00:00 AM EST activ e Walker - eCW1 ([facility]) Walker - Walker - 02/15/2020 12:00:00 AM EST activ e Walker - eCW1 ([facility]) Walker - Walker - 02/15/2020 12:00:00 AM EST activ e Walker - eCW1 ([facility]) Walker - Walker - 02/15/2020 12:00:00 AM EST activ e Walker - eCW1 ([facility]) Walker - Walker - 02/15/2020 12:00:00 AM EST activ e Walker - eCW1 ([facility]) Walker - Walker - 02/15/2020 12:00:00 AM EST activ e Walker - eCW1 ([facility]) Walker - Walker - 02/15/2020 12:00:00 AM EST activ e Walker - eCW1 ([facility]) Walker - Walker - 02/15/2020 12:00:00 AM EST activ e Walker - eCW1 ([facility]) Walker - Walker - 02/15/2020 12:00:00 AM EST activ e Walker - eCW1 ([facility]) Walker - Walker - 02/15/2020 12:00:00 AM EST activ e Walker - eCW1 ([facility]) Walker - Walker - 02/15/2020 12:00:00 AM EST activ e Walker - eCW1 ([facility]) Walker - Walker - 02/15/2020 12:00:00 AM EST activ e Walker - eCW1 ([facility]) Walker - Walker - 02/15/2020 12:00:00 AM EST activ e Walker - eCW1 ([facility]) Walker - Walker - 02/15/2020 12:00:00 AM EST activ e Walker - eCW1 ([facility]) Walker - Walker - 02/15/2020 12:00:00 AM EST activ e Walker - eCW1 ([facility]) Walker - Walker - 02/15/2020 12:00:00 AM EST activ e Walker - eCW1 ([facility]) Walker - Walker - 02/15/2020 12:00:00 AM EST activ e Walker - eCW1 ([facility]) Walker - Walker - 02/15/2020 12:00:00 AM EST activ e Walker - eCW1 ([facility]) Walker - Walker - 02/15/2020 12:00:00 AM EST activ e Walker - eCW1 ([facility]) Walker - Walker - 02/15/2020 12:00:00 AM EST activ e Walker - eCW1 ([facility]) Walker - Walker - 02/15/2020 12:00:00 AM EST activ e Walker - eCW1 ([facility]) Walker - Walker - 02/15/2020 12:00:00 AM EST activ e Walker - eCW1 ([facility]) Walker - Walker - 02/15/2020 12:00:00 AM EST activ e Walker - eCW1 ([facility]) Walker - Walker - 02/15/2020 12:00:00 AM EST activ e Walker - eCW1 ([facility]) Walker - Walker - 02/15/2020 12:00:00 AM EST activ e Walker - eCW1 ([facility]) Walker - Walker - 02/15/2020 12:00:00 AM EST activ e Walker - eCW1 ([facility]) Walker - Walker - 02/15/2020 12:00:00 AM EST activ e Walker - eCW1 ([facility]) Walker - Walker - 02/15/2020 12:00:00 AM EST activ e Walker - eCW1 ([facility]) Walker - Walker - 02/15/2020 12:00:00 AM EST activ e Walker - eCW1 ([facility]) Walker - Walker - 02/15/2020 12:00:00 AM EST activ e Walker - eCW1 ([facility]) Walker - Walker - 02/15/2020 12:00:00 AM EST activ e Walker - eCW1 ([facility]) Walker - Walker - 02/15/2020 12:00:00 AM EST activ e Walker - eCW1 ([facility]) Walker - Walker - 02/15/2020 12:00:00 AM EST activ e Walker - eCW1 ([facility]) Walker - Walker - 02/15/2020 12:00:00 AM EST activ e Walker - eCW1 ([facility]) Walker - Walker - 02/15/2020 12:00:00 AM EST activ e Walker - eCW1 ([facility]) Walker - Walker - 02/15/2020 12:00:00 AM EST activ e Walker - eCW1 ([facility]) Walker - Walker - 02/15/2020 12:00:00 AM EST activ e Walker - eCW1 ([facility]) Walker - Walker - 02/15/2020 12:00:00 AM EST activ e Walker - eCW1 ([facility]) Walker - Walker - 02/15/2020 12:00:00 AM EST activ e Walker - eCW1 ([facility]) Walker - Walker - 02/15/2020 12:00:00 AM EST activ e Walker - eCW1 ([facility]) Walker - Walker - 02/15/2020 12:00:00 AM EST activ e Walker - eCW1 ([facility]) Test Strips - UNK 02/09/2020 12:00:00 AM EST acti ve Test Strips - eCW1 ([facility]) Test Strips - UNK 02/09/2020 12:00:00 AM EST acti ve Test Strips - eCW1 ([facility]) Test Strips - UNK 02/09/2020 12:00:00 AM EST acti ve Test Strips - eCW1 ([facility]) Test Strips - UNK 02/09/2020 12:00:00 AM EST acti ve Test Strips - eCW1 ([facility]) Test Strips - UNK 02/09/2020 12:00:00 AM EST acti ve Test Strips - eCW1 ([facility]) Test Strips - UNK 02/09/2020 12:00:00 AM EST acti ve Test Strips - eCW1 ([facility]) Test Strips - UNK 02/09/2020 12:00:00 AM EST acti ve Test Strips - eCW1 ([facility]) Test Strips - UNK 02/09/2020 12:00:00 AM EST acti ve Test Strips - eCW1 ([facility]) Test Strips - UNK 02/09/2020 12:00:00 AM EST acti ve Test Strips - eCW1 ([facility]) Test Strips - UNK 02/09/2020 12:00:00 AM EST acti ve Test Strips - eCW1 ([facility]) Test Strips - UNK 02/09/2020 12:00:00 AM EST acti ve Test Strips - eCW1 ([facility]) Test Strips - UNK 02/09/2020 12:00:00 AM EST acti ve Test Strips - eCW1 ([facility]) Test Strips - K 02/09/2020 12:00:00 AM EST acti ve Test Strips - eCW1 ([facility]) Test Strips - K 02/09/2020 12:00:00 AM EST acti ve Test Strips - eCW1 ([facility]) Test Strips - K 02/09/2020 12:00:00 AM EST acti ve Test Strips - eCW1 ([facility]) Test Strips - K 02/09/2020 12:00:00 AM EST acti ve Test Strips - eCW1 ([facility]) Test Strips - K 02/09/2020 12:00:00 AM EST acti ve Test Strips - eCW1 ([facility]) Test Strips - K 02/09/2020 12:00:00 AM EST acti ve Test Strips - eCW1 ([facility]) Test Strips - K 02/09/2020 12:00:00 AM EST acti ve Test Strips - eCW1 ([facility]) Test Strips - K 02/09/2020 12:00:00 AM EST acti ve Test Strips - eCW1 ([facility]) Test Strips - K 02/09/2020 12:00:00 AM EST acti ve Test Strips - eCW1 ([facility]) Test Strips - K 02/09/2020 12:00:00 AM EST acti ve Test Strips - eCW1 ([facility]) Test Strips - UNK 02/09/2020 12:00:00 AM EST acti ve Test Strips - eCW1 ([facility]) Test Strips - K 02/09/2020 12:00:00 AM EST acti ve Test Strips - eCW1 ([facility]) Test Strips - K 02/09/2020 12:00:00 AM EST acti ve Test Strips - eCW1 ([facility]) Test Strips - K 02/09/2020 12:00:00 AM EST acti ve Test Strips - eCW1 ([facility]) Test Strips - K 02/09/2020 12:00:00 AM EST acti ve Test Strips - eCW1 ([facility]) Test Strips - K 02/09/2020 12:00:00 AM EST acti ve Test Strips - eCW1 ([facility]) Test Strips - K 02/09/2020 12:00:00 AM EST acti ve Test Strips - eCW1 ([facility]) Test Strips - K 02/09/2020 12:00:00 AM EST acti ve Test Strips - eCW1 ([facility]) Test Strips - K 02/09/2020 12:00:00 AM EST acti ve Test Strips - eCW1 ([facility]) Test Strips - K 02/09/2020 12:00:00 AM EST acti ve Test Strips - eCW1 ([facility]) Test Strips - K 02/09/2020 12:00:00 AM EST acti ve Test Strips - eCW1 ([facility]) Test Strips - K 02/09/2020 12:00:00 AM EST acti ve Test Strips - eCW1 ([facility]) Test Strips - K 02/09/2020 12:00:00 AM EST acti ve Test Strips - eCW1 ([facility]) Test Strips - K 02/09/2020 12:00:00 AM EST acti ve Test Strips - eCW1 ([facility]) Test Strips - K 02/09/2020 12:00:00 AM EST acti ve Test Strips - eCW1 ([facility]) Test Strips - UNK 02/09/2020 12:00:00 AM EST acti ve Test Strips - eCW1 ([facility]) Test Strips - UNK 02/09/2020 12:00:00 AM EST acti ve Test Strips - eCW1 ([facility]) Test Strips - UNK 02/09/2020 12:00:00 AM EST acti ve Test Strips - eCW1 ([facility]) Test Strips - UNK 02/09/2020 12:00:00 AM EST acti ve Test Strips - eCW1 ([facility]) Test Strips - K 02/09/2020 12:00:00 AM EST acti ve Test Strips - eCW1 ([facility]) Test Strips - K 02/09/2020 12:00:00 AM EST acti ve Test Strips - eCW1 ([facility]) Test Strips - K 02/09/2020 12:00:00 AM EST acti ve Test Strips - eCW1 ([facility]) Test Strips - K 02/09/2020 12:00:00 AM EST acti ve Test Strips - eCW1 ([facility]) Test Strips - K 02/09/2020 12:00:00 AM EST acti ve Test Strips - eCW1 ([facility]) Test Strips - K 02/09/2020 12:00:00 AM EST acti ve Test Strips - eCW1 ([facility]) Test Strips - K 02/09/2020 12:00:00 AM EST acti ve Test Strips - eCW1 ([facility]) Test Strips - K 02/09/2020 12:00:00 AM EST acti ve Test Strips - eCW1 ([facility]) Test Strips - K 02/09/2020 12:00:00 AM EST acti ve Test Strips - eCW1 ([facility]) Test Strips - UNK 02/09/2020 12:00:00 AM EST acti ve Test Strips - eCW1 ([facility]) Test Strips - K 02/09/2020 12:00:00 AM EST acti ve Test Strips - eCW1 ([facility]) Test Strips - UNK 02/09/2020 12:00:00 AM EST acti ve Test Strips - eCW1 ([facility]) Test Strips - UNK 02/09/2020 12:00:00 AM EST acti ve Test Strips - eCW1 ([facility]) Test Strips - UNK 02/09/2020 12:00:00 AM EST acti ve Test Strips - eCW1 ([facility]) Test Strips - UNK 02/09/2020 12:00:00 AM EST acti ve Test Strips - eCW1 ([facility]) Test Strips - UNK 02/09/2020 12:00:00 AM EST acti ve Test Strips - eCW1 ([facility]) Test Strips - UNK 02/09/2020 12:00:00 AM EST acti ve Test Strips - eCW1 ([facility]) Test Strips - K 02/09/2020 12:00:00 AM EST acti ve Test Strips - eCW1 ([facility]) Test Strips - K 02/09/2020 12:00:00 AM EST acti ve Test Strips - eCW1 ([facility]) Test Strips - K 02/09/2020 12:00:00 AM EST acti ve Test Strips - eCW1 ([facility]) POLYETHYLENE GLYCOL 3350 142 MG/ML Oral Solution [Miralax] M iralax 02/09/2020 12:00:00 AM EST completed MEDENT ([facility]) magnesium citrate 58.2 MG/ML Oral Solution Magnesium Citrate 02/09/2020 12:00:00 AM EST completed MEDENT ([facility]) Test Strips - UNK 02/09/2020 12:00:00 AM EST acti ve Test Strips - eCW1 ([facility]) Test Strips - UNK 02/09/2020 12:00:00 AM EST acti ve Test Strips - eCW1 ([facility]) Test Strips - UNK 02/09/2020 12:00:00 AM EST acti ve Test Strips - eCW1 ([facility]) Test Strips - UNK 02/09/2020 12:00:00 AM EST acti ve Test Strips - eCW1 ([facility]) Test Strips - UNK 02/09/2020 12:00:00 AM EST acti ve Test Strips - eCW1 ([facility]) Test Strips - UNK 02/09/2020 12:00:00 AM EST acti ve Test Strips - eCW1 ([facility]) 3 ML insulin detemir 100 UNT/ML Pen Inje ctor [Levemir] Levemir FlexTouch 100 UNIT/ML Levemir FlexTouch 100 UNIT/ML 02/03/2020 12:00:00 AM EST active Levemir FlexTouch 100 UNIT/ML eC W1 ([facility]) Amlodipine 5 MG Oral Tablet AmLODIPine Besylate 5 MG AmLODIP ine Besylate 5 MG 02/03/2020 12:00:00 AM EST 1.0 {tablet} active AmLODIPine Besylate 5 MG eCW1 ([facility]) 3 ML insulin detemir 100 UNT/ML Pen Inje ctor [Levemir] Levemir FlexTouch 100 UNIT/ML Levemir FlexTouch 100 UNIT/ML 02/03/2020 12:00:00 AM EST active Levemir FlexTouch 100 UNIT/ML eC W1 ([facility]) 3 ML insulin detemir 100 UNT/ML Pen Inje ctor [Levemir] Levemir FlexTouch 100 UNIT/ML Levemir FlexTouch 100 UNIT/ML 02/03/2020 12:00:00 AM EST active Levemir FlexTouch 100 UNIT/ML eC W1 ([facility]) Acetaminophen 325 MG Oral Tablet Acetaminophen 325 MG 2019 12:00:00 AM EST 2.0 {tablets_as_needed} active Acetaminophen 325 MG eCW1 ([facility]) 3 ML insulin detemir 100 UNT/ML Pen Inje ctor [Levemir] Levemir FlexTouch 100 UNIT/ML Levemir FlexTouch 100 UNIT/ML 02/03/2020 12:00:00 AM EST active Levemir FlexTouch 100 UNIT/ML eC W1 ([facility]) 3 ML insulin detemir 100 UNT/ML Pen Inje ctor [Levemir] Levemir FlexTouch 100 UNIT/ML Levemir FlexTouch 100 UNIT/ML 02/03/2020 12:00:00 AM EST active Levemir FlexTouch 100 UNIT/ML eC W1 ([facility]) 3 ML insulin detemir 100 UNT/ML Pen Inje ctor [Levemir] Levemir FlexTouch 100 UNIT/ML Levemir FlexTouch 100 UNIT/ML 02/03/2020 12:00:00 AM EST active Levemir FlexTouch 100 UNIT/ML eC W1 ([facility]) Amlodipine 5 MG Oral Tablet AmLODIPine Besylate 5 MG AmLODIP ine Besylate 5 MG 02/03/2020 12:00:00 AM EST 1.0 {tablet} active AmLODIPine Besylate 5 MG eCW1 ([facility]) 3 ML insulin detemir 100 UNT/ML Pen Inje ctor [Levemir] Levemir FlexTouch 100 UNIT/ML Levemir FlexTouch 100 UNIT/ML 02/03/2020 12:00:00 AM EST active Levemir FlexTouch 100 UNIT/ML eC W1 ([facility]) Amlodipine 5 MG Oral Tablet AmLODIPine Besylate 5 MG AmLODIP ine Besylate 5 MG 02/03/2020 12:00:00 AM EST 1.0 {tablet} active AmLODIPine Besylate 5 MG eCW1 ([facility]) Acetaminophen 325 MG Oral Tablet Acetaminophen 325 MG 2019 12:00:00 AM EST 2.0 {tablets_as_needed} active Acetaminophen 325 MG eCW1 ([facility]) Acetaminophen 325 MG Oral Tablet Acetaminophen 325 MG 2019 12:00:00 AM EST 2.0 {tablets_as_needed} active Acetaminophen 325 MG eCW1 ([facility]) 3 ML insulin detemir 100 UNT/ML Pen Inje ctor [Levemir] Levemir FlexTouch 100 UNIT/ML Levemir FlexTouch 100 UNIT/ML 02/03/2020 12:00:00 AM EST active Levemir FlexTouch 100 UNIT/ML eC W1 ([facility]) 3 ML insulin detemir 100 UNT/ML Pen Inje ctor [Levemir] Levemir FlexTouch 100 UNIT/ML Levemir FlexTouch 100 UNIT/ML 02/03/2020 12:00:00 AM EST active Levemir FlexTouch 100 UNIT/ML eC W1 ([facility]) Amlodipine 5 MG Oral Tablet AmLODIPine Besylate 5 MG AmLODIP ine Besylate 5 MG 02/03/2020 12:00:00 AM EST 1.0 {tablet} active AmLODIPine Besylate 5 MG eCW1 ([facility]) 3 ML insulin detemir 100 UNT/ML Pen Inje ctor [Levemir] Levemir FlexTouch 100 UNIT/ML Levemir FlexTouch 100 UNIT/ML 02/03/2020 12:00:00 AM EST active Levemir FlexTouch 100 UNIT/ML eC W1 ([facility]) Acetaminophen 325 MG Oral Tablet Acetaminophen 325 MG 2019 12:00:00 AM EST 2.0 {tablets_as_needed} active Acetaminophen 325 MG eCW1 ([facility]) 3 ML insulin detemir 100 UNT/ML Pen Inje ctor [Levemir] Levemir FlexTouch 100 UNIT/ML Levemir FlexTouch 100 UNIT/ML 02/03/2020 12:00:00 AM EST active Levemir FlexTouch 100 UNIT/ML eC W1 ([facility]) 3 ML insulin detemir 100 UNT/ML Pen Inje ctor [Levemir] Levemir FlexTouch 100 UNIT/ML Levemir FlexTouch 100 UNIT/ML 02/03/2020 12:00:00 AM EST active Levemir FlexTouch 100 UNIT/ML eC W1 ([facility]) 3 ML insulin detemir 100 UNT/ML Pen Inje ctor [Levemir] Levemir FlexTouch 100 UNIT/ML Levemir FlexTouch 100 UNIT/ML 02/03/2020 12:00:00 AM EST active Levemir FlexTouch 100 UNIT/ML eC W1 ([facility]) 3 ML insulin detemir 100 UNT/ML Pen Inje ctor [Levemir] Levemir FlexTouch 100 UNIT/ML Levemir FlexTouch 100 UNIT/ML 02/03/2020 12:00:00 AM EST active Levemir FlexTouch 100 UNIT/ML eC W1 ([facility]) 3 ML insulin detemir 100 UNT/ML Pen Inje ctor [Levemir] Levemir FlexTouch 100 UNIT/ML Levemir FlexTouch 100 UNIT/ML 02/03/2020 12:00:00 AM EST active Levemir FlexTouch 100 UNIT/ML eC W1 ([facility]) 3 ML insulin detemir 100 UNT/ML Pen Inje ctor [Levemir] Levemir FlexTouch 100 UNIT/ML Levemir FlexTouch 100 UNIT/ML 02/03/2020 12:00:00 AM EST active Levemir FlexTouch 100 UNIT/ML eC W1 ([facility]) 3 ML insulin detemir 100 UNT/ML Pen Inje ctor [Levemir] Levemir FlexTouch 100 UNIT/ML Levemir FlexTouch 100 UNIT/ML 02/03/2020 12:00:00 AM EST active Levemir FlexTouch 100 UNIT/ML eC W1 ([facility]) Amlodipine 5 MG Oral Tablet AmLODIPine Besylate 5 MG AmLODIP ine Besylate 5 MG 02/03/2020 12:00:00 AM EST 1.0 {tablet} active AmLODIPine Besylate 5 MG eCW1 ([facility]) Amlodipine 5 MG Oral Tablet AmLODIPine Besylate 5 MG AmLODIP ine Besylate 5 MG 02/03/2020 12:00:00 AM EST 1.0 {tablet} active AmLODIPine Besylate 5 MG eCW1 ([facility]) 3 ML insulin detemir 100 UNT/ML Pen Inje ctor [Levemir] Levemir FlexTouch 100 UNIT/ML Levemir FlexTouch 100 UNIT/ML 02/03/2020 12:00:00 AM EST active Levemir FlexTouch 100 UNIT/ML eC W1 ([facility]) 3 ML insulin detemir 100 UNT/ML Pen Inje ctor [Levemir] Levemir FlexTouch 100 UNIT/ML Levemir FlexTouch 100 UNIT/ML 02/03/2020 12:00:00 AM EST active Levemir FlexTouch 100 UNIT/ML eC W1 ([facility]) 3 ML insulin detemir 100 UNT/ML Pen Inje ctor [Levemir] Levemir FlexTouch 100 UNIT/ML Levemir FlexTouch 100 UNIT/ML 02/03/2020 12:00:00 AM EST active Levemir FlexTouch 100 UNIT/ML eC W1 ([facility]) Acetaminophen 325 MG Oral Tablet Acetaminophen 325 MG 2019 12:00:00 AM EST 2.0 {tablets_as_needed} active Acetaminophen 325 MG eCW1 ([facility]) Acetaminophen 325 MG Oral Tablet Acetaminophen 325 MG 2019 12:00:00 AM EST 2.0 {tablets_as_needed} active Acetaminophen 325 MG eCW1 ([facility]) Acetaminophen 325 MG Oral Tablet Acetaminophen 325 MG 2019 12:00:00 AM EST 2.0 {tablets_as_needed} active Acetaminophen 325 MG eCW1 ([facility]) Acetaminophen 325 MG Oral Tablet Acetaminophen 325 MG 2019 12:00:00 AM EST 2.0 {tablets_as_needed} active Acetaminophen 325 MG eCW1 ([facility]) 3 ML insulin detemir 100 UNT/ML Pen Inje ctor [Levemir] Levemir FlexTouch 100 UNIT/ML Levemir FlexTouch 100 UNIT/ML 02/03/2020 12:00:00 AM EST active Levemir FlexTouch 100 UNIT/ML eC W1 ([facility]) 3 ML insulin detemir 100 UNT/ML Pen Inje ctor [Levemir] Levemir FlexTouch 100 UNIT/ML Levemir FlexTouch 100 UNIT/ML 02/03/2020 12:00:00 AM EST active Levemir FlexTouch 100 UNIT/ML eC W1 ([facility]) 3 ML insulin detemir 100 UNT/ML Pen Inje ctor [Levemir] Levemir FlexTouch 100 UNIT/ML Levemir FlexTouch 100 UNIT/ML 02/03/2020 12:00:00 AM EST active Levemir FlexTouch 100 UNIT/ML eC W1 ([facility]) Acetaminophen 325 MG Oral Tablet Acetaminophen 325 MG 2019 12:00:00 AM EST 2.0 {tablets_as_needed} active Acetaminophen 325 MG eCW1 ([facility]) Acetaminophen 325 MG Oral Tablet Acetaminophen 325 MG 2019 12:00:00 AM EST 2.0 {tablets_as_needed} active Acetaminophen 325 MG eCW1 ([facility]) 3 ML insulin detemir 100 UNT/ML Pen Inje ctor [Levemir] Levemir FlexTouch 100 UNIT/ML Levemir FlexTouch 100 UNIT/ML 02/03/2020 12:00:00 AM EST active Levemir FlexTouch 100 UNIT/ML eC W1 ([facility]) Acetaminophen 325 MG Oral Tablet Acetaminophen 325 MG 2019 12:00:00 AM EST 2.0 {tablets_as_needed} active Acetaminophen 325 MG eCW1 ([facility]) Amlodipine 5 MG Oral Tablet AmLODIPine Besylate 5 MG AmLODIP ine Besylate 5 MG 02/03/2020 12:00:00 AM EST 1.0 {tablet} active AmLODIPine Besylate 5 MG eCW1 ([facility]) 3 ML insulin detemir 100 UNT/ML Pen Inje ctor [Levemir] Levemir FlexTouch 100 UNIT/ML Levemir FlexTouch 100 UNIT/ML 02/03/2020 12:00:00 AM EST active Levemir FlexTouch 100 UNIT/ML eC W1 ([facility]) 3 ML insulin detemir 100 UNT/ML Pen Inje ctor [Levemir] Levemir FlexTouch 100 UNIT/ML Levemir FlexTouch 100 UNIT/ML 02/03/2020 12:00:00 AM EST active Levemir FlexTouch 100 UNIT/ML eC W1 ([facility]) 3 ML insulin detemir 100 UNT/ML Pen Inje ctor [Levemir] Levemir FlexTouch 100 UNIT/ML Levemir FlexTouch 100 UNIT/ML 02/03/2020 12:00:00 AM EST active Levemir FlexTouch 100 UNIT/ML eC W1 ([facility]) 3 ML insulin detemir 100 UNT/ML Pen Inje ctor [Levemir] Levemir FlexTouch 100 UNIT/ML Levemir FlexTouch 100 UNIT/ML 02/03/2020 12:00:00 AM EST active Levemir FlexTouch 100 UNIT/ML eC W1 ([facility]) 3 ML insulin detemir 100 UNT/ML Pen Inje ctor [Levemir] Levemir FlexTouch 100 UNIT/ML Levemir FlexTouch 100 UNIT/ML 02/03/2020 12:00:00 AM EST active Levemir FlexTouch 100 UNIT/ML eC W1 ([facility]) Acetaminophen 325 MG Oral Tablet Acetaminophen 325 MG 2019 12:00:00 AM EST 2.0 {tablets_as_needed} active Acetaminophen 325 MG eCW1 ([facility]) Acetaminophen 325 MG Oral Tablet Acetaminophen 325 MG 2019 12:00:00 AM EST 2.0 {tablets_as_needed} active Acetaminophen 325 MG eCW1 ([facility]) Acetaminophen 325 MG Oral Tablet Acetaminophen 325 MG 2019 12:00:00 AM EST 2.0 {tablets_as_needed} active Acetaminophen 325 MG eCW1 ([facility]) 3 ML insulin detemir 100 UNT/ML Pen Inje ctor [Levemir] Levemir FlexTouch 100 UNIT/ML Levemir FlexTouch 100 UNIT/ML 02/03/2020 12:00:00 AM EST active Levemir FlexTouch 100 UNIT/ML eC W1 ([facility]) Acetaminophen 325 MG Oral Tablet Acetaminophen 325 MG 2019 12:00:00 AM EST 2.0 {tablets_as_needed} active Acetaminophen 325 MG eCW1 ([facility]) 3 ML insulin detemir 100 UNT/ML Pen Inje ctor [Levemir] Levemir FlexTouch 100 UNIT/ML Levemir FlexTouch 100 UNIT/ML 02/03/2020 12:00:00 AM EST active Levemir FlexTouch 100 UNIT/ML eC W1 ([facility]) Amlodipine 5 MG Oral Tablet AmLODIPine Besylate 5 MG AmLODIP ine Besylate 5 MG 02/03/2020 12:00:00 AM EST 1.0 {tablet} active AmLODIPine Besylate 5 MG eCW1 ([facility]) 3 ML insulin detemir 100 UNT/ML Pen Inje ctor [Levemir] Levemir FlexTouch 100 UNIT/ML Levemir FlexTouch 100 UNIT/ML 02/03/2020 12:00:00 AM EST active Levemir FlexTouch 100 UNIT/ML eC W1 ([facility]) 3 ML insulin detemir 100 UNT/ML Pen Inje ctor [Levemir] Levemir FlexTouch 100 UNIT/ML Levemir FlexTouch 100 UNIT/ML 02/03/2020 12:00:00 AM EST active Levemir FlexTouch 100 UNIT/ML eC W1 ([facility]) Amlodipine 5 MG Oral Tablet AmLODIPine Besylate 5 MG AmLODIP ine Besylate 5 MG 02/03/2020 12:00:00 AM EST 1.0 {tablet} active AmLODIPine Besylate 5 MG eCW1 ([facility]) 3 ML insulin detemir 100 UNT/ML Pen Inje ctor [Levemir] Levemir FlexTouch 100 UNIT/ML Levemir FlexTouch 100 UNIT/ML 02/03/2020 12:00:00 AM EST active Levemir FlexTouch 100 UNIT/ML eC W1 ([facility]) Acetaminophen 325 MG Oral Tablet Acetaminophen 325 MG 2019 12:00:00 AM EST 2.0 {tablets_as_needed} active Acetaminophen 325 MG eCW1 ([facility]) 3 ML insulin detemir 100 UNT/ML Pen Inje ctor [Levemir] Levemir FlexTouch 100 UNIT/ML Levemir FlexTouch 100 UNIT/ML 02/03/2020 12:00:00 AM EST active Levemir FlexTouch 100 UNIT/ML eC W1 ([facility]) 3 ML insulin detemir 100 UNT/ML Pen Inje ctor [Levemir] Levemir FlexTouch 100 UNIT/ML Levemir FlexTouch 100 UNIT/ML 02/03/2020 12:00:00 AM EST active Levemir FlexTouch 100 UNIT/ML eC W1 ([facility]) Acetaminophen 325 MG Oral Tablet Acetaminophen 325 MG 2019 12:00:00 AM EST 2.0 {tablets_as_needed} active Acetaminophen 325 MG eCW1 ([facility]) Amlodipine 5 MG Oral Tablet AmLODIPine Besylate 5 MG AmLODIP ine Besylate 5 MG 02/03/2020 12:00:00 AM EST 1.0 {tablet} active AmLODIPine Besylate 5 MG eCW1 ([facility]) Hydrochlorothiazide 12.5 MG Oral Tablet Hydrochlorothiazide 12.5 MG 02/03/2020 12:00:00 AM EST 1.0 {tablet_in_the_morning} acti ve Hydrochlorothiazide 12.5 MG eCW1 ([facility]) 3 ML insulin detemir 100 UNT/ML Pen Inje ctor [Levemir] Levemir FlexTouch 100 UNIT/ML Levemir FlexTouch 100 UNIT/ML 02/03/2020 12:00:00 AM EST active Levemir FlexTouch 100 UNIT/ML eC W1 ([facility]) Amlodipine 5 MG Oral Tablet AmLODIPine Besylate 5 MG AmLODIP ine Besylate 5 MG 02/03/2020 12:00:00 AM EST 1.0 {tablet} active AmLODIPine Besylate 5 MG eCW1 ([facility]) 3 ML insulin detemir 100 UNT/ML Pen Inje ctor [Levemir] Levemir FlexTouch 100 UNIT/ML Levemir FlexTouch 100 UNIT/ML 02/03/2020 12:00:00 AM EST active Levemir FlexTouch 100 UNIT/ML eC W1 ([facility]) 3 ML insulin detemir 100 UNT/ML Pen Inje ctor [Levemir] Levemir FlexTouch 100 UNIT/ML Levemir FlexTouch 100 UNIT/ML 02/03/2020 12:00:00 AM EST active Levemir FlexTouch 100 UNIT/ML eC W1 ([facility]) 3 ML insulin detemir 100 UNT/ML Pen Inje ctor [Levemir] Levemir FlexTouch 100 UNIT/ML Levemir FlexTouch 100 UNIT/ML 02/03/2020 12:00:00 AM EST active Levemir FlexTouch 100 UNIT/ML eC W1 ([facility]) 3 ML insulin detemir 100 UNT/ML Pen Inje ctor [Levemir] Levemir FlexTouch 100 UNIT/ML Levemir FlexTouch 100 UNIT/ML 02/03/2020 12:00:00 AM EST active Levemir FlexTouch 100 UNIT/ML eC W1 ([facility]) 3 ML insulin detemir 100 UNT/ML Pen Inje ctor [Levemir] Levemir FlexTouch 100 UNIT/ML Levemir FlexTouch 100 UNIT/ML 02/03/2020 12:00:00 AM EST active Levemir FlexTouch 100 UNIT/ML eC W1 ([facility]) 3 ML insulin detemir 100 UNT/ML Pen Inje ctor [Levemir] Levemir FlexTouch 100 UNIT/ML Levemir FlexTouch 100 UNIT/ML 02/03/2020 12:00:00 AM EST active Levemir FlexTouch 100 UNIT/ML eC W1 ([facility]) Acetaminophen 325 MG Oral Tablet Acetaminophen 325 MG 2019 12:00:00 AM EST 2.0 {tablets_as_needed} active Acetaminophen 325 MG eCW1 ([facility]) 3 ML insulin detemir 100 UNT/ML Pen Inje ctor [Levemir] Levemir FlexTouch 100 UNIT/ML Levemir FlexTouch 100 UNIT/ML 02/03/2020 12:00:00 AM EST active Levemir FlexTouch 100 UNIT/ML eC W1 ([facility]) Acetaminophen 325 MG Oral Tablet Acetaminophen 325 MG 2019 12:00:00 AM EST 2.0 {tablets_as_needed} active Acetaminophen 325 MG eCW1 ([facility]) Amlodipine 5 MG Oral Tablet AmLODIPine Besylate 5 MG AmLODIP ine Besylate 5 MG 02/03/2020 12:00:00 AM EST 1.0 {tablet} active AmLODIPine Besylate 5 MG eCW1 ([facility]) Acetaminophen 325 MG Oral Tablet Acetaminophen 325 MG 2019 12:00:00 AM EST 2.0 {tablets_as_needed} active Acetaminophen 325 MG eCW1 ([facility]) 3 ML insulin detemir 100 UNT/ML Pen Inje ctor [Levemir] Levemir FlexTouch 100 UNIT/ML Levemir FlexTouch 100 UNIT/ML 02/03/2020 12:00:00 AM EST active Levemir FlexTouch 100 UNIT/ML eC W1 ([facility]) 3 ML insulin detemir 100 UNT/ML Pen Inje ctor [Levemir] Levemir FlexTouch 100 UNIT/ML Levemir FlexTouch 100 UNIT/ML 02/03/2020 12:00:00 AM EST active Levemir FlexTouch 100 UNIT/ML eC W1 ([facility]) 3 ML insulin detemir 100 UNT/ML Pen Inje ctor [Levemir] Levemir FlexTouch 100 UNIT/ML Levemir FlexTouch 100 UNIT/ML 02/03/2020 12:00:00 AM EST active Levemir FlexTouch 100 UNIT/ML eC W1 ([facility]) 3 ML insulin detemir 100 UNT/ML Pen Inje ctor [Levemir] Levemir FlexTouch 100 UNIT/ML Levemir FlexTouch 100 UNIT/ML 02/03/2020 12:00:00 AM EST active Levemir FlexTouch 100 UNIT/ML eC W1 ([facility]) Acetaminophen 325 MG Oral Tablet Acetaminophen 325 MG 2019 12:00:00 AM EST 2.0 {tablets_as_needed} active Acetaminophen 325 MG eCW1 ([facility]) 3 ML insulin detemir 100 UNT/ML Pen Inje ctor [Levemir] Levemir FlexTouch 100 UNIT/ML Levemir FlexTouch 100 UNIT/ML 02/03/2020 12:00:00 AM EST active Levemir FlexTouch 100 UNIT/ML eC W1 ([facility]) Amlodipine 5 MG Oral Tablet AmLODIPine Besylate 5 MG AmLODIP ine Besylate 5 MG 02/03/2020 12:00:00 AM EST 1.0 {tablet} active AmLODIPine Besylate 5 MG eCW1 ([facility]) Acetaminophen 325 MG Oral Tablet Acetaminophen 325 MG 2019 12:00:00 AM EST 2.0 {tablets_as_needed} active Acetaminophen 325 MG eCW1 ([facility]) 3 ML insulin detemir 100 UNT/ML Pen Inje ctor [Levemir] Levemir FlexTouch 100 UNIT/ML Levemir FlexTouch 100 UNIT/ML 02/03/2020 12:00:00 AM EST active Levemir FlexTouch 100 UNIT/ML eC W1 ([facility]) Acetaminophen 325 MG Oral Tablet Acetaminophen 325 MG 2019 12:00:00 AM EST 2.0 {tablets_as_needed} active Acetaminophen 325 MG eCW1 ([facility]) Hydrochlorothiazide 12.5 MG Oral Tablet Hydrochlorothiazide 12.5 MG 02/03/2020 12:00:00 AM EST 1.0 {tablet_in_the_morning} acti ve Hydrochlorothiazide 12.5 MG eCW1 ([facility]) Amlodipine 5 MG Oral Tablet AmLODIPine Besylate 5 MG AmLODIP ine Besylate 5 MG 02/03/2020 12:00:00 AM EST 1.0 {tablet} active AmLODIPine Besylate 5 MG eCW1 ([facility]) Acetaminophen 325 MG Oral Tablet Acetaminophen 325 MG 2019 12:00:00 AM EST 2.0 {tablets_as_needed} active Acetaminophen 325 MG eCW1 ([facility]) 3 ML insulin detemir 100 UNT/ML Pen Inje ctor [Levemir] Levemir FlexTouch 100 UNIT/ML Levemir FlexTouch 100 UNIT/ML 02/03/2020 12:00:00 AM EST active Levemir FlexTouch 100 UNIT/ML eC W1 ([facility]) Amlodipine 5 MG Oral Tablet AmLODIPine Besylate 5 MG AmLODIP ine Besylate 5 MG 02/03/2020 12:00:00 AM EST 1.0 {tablet} active AmLODIPine Besylate 5 MG eCW1 ([facility]) 3 ML insulin detemir 100 UNT/ML Pen Inje ctor [Levemir] Levemir FlexTouch 100 UNIT/ML Levemir FlexTouch 100 UNIT/ML 02/03/2020 12:00:00 AM EST active Levemir FlexTouch 100 UNIT/ML eC W1 ([facility]) Amlodipine 5 MG Oral Tablet AmLODIPine Besylate 5 MG AmLODIP ine Besylate 5 MG 02/03/2020 12:00:00 AM EST 1.0 {tablet} active AmLODIPine Besylate 5 MG eCW1 ([facility]) 3 ML insulin detemir 100 UNT/ML Pen Inje ctor [Levemir] Levemir FlexTouch 100 UNIT/ML Levemir FlexTouch 100 UNIT/ML 02/03/2020 12:00:00 AM EST active Levemir FlexTouch 100 UNIT/ML eC W1 ([facility]) Amlodipine 5 MG Oral Tablet AmLODIPine Besylate 5 MG AmLODIP ine Besylate 5 MG 02/03/2020 12:00:00 AM EST 1.0 {tablet} active AmLODIPine Besylate 5 MG eCW1 ([facility]) Acetaminophen 325 MG Oral Tablet Acetaminophen 325 MG 2019 12:00:00 AM EST 2.0 {tablets_as_needed} active Acetaminophen 325 MG eCW1 ([facility]) 3 ML insulin detemir 100 UNT/ML Pen Inje ctor [Levemir] Levemir FlexTouch 100 UNIT/ML Levemir FlexTouch 100 UNIT/ML 02/03/2020 12:00:00 AM EST active Levemir FlexTouch 100 UNIT/ML eC W1 ([facility]) 3 ML insulin detemir 100 UNT/ML Pen Inje ctor [Levemir] Levemir FlexTouch 100 UNIT/ML Levemir FlexTouch 100 UNIT/ML 02/03/2020 12:00:00 AM EST active Levemir FlexTouch 100 UNIT/ML eC W1 ([facility]) Acetaminophen 325 MG Oral Tablet Acetaminophen 325 MG 2019 12:00:00 AM EST 2.0 {tablets_as_needed} active Acetaminophen 325 MG eCW1 ([facility]) Amlodipine 5 MG Oral Tablet AmLODIPine Besylate 5 MG AmLODIP ine Besylate 5 MG 02/03/2020 12:00:00 AM EST 1.0 {tablet} active AmLODIPine Besylate 5 MG eCW1 ([facility]) Acetaminophen 325 MG Oral Tablet Acetaminophen 325 MG 2019 12:00:00 AM EST 2.0 {tablets_as_needed} active Acetaminophen 325 MG eCW1 ([facility]) 3 ML insulin detemir 100 UNT/ML Pen Inje ctor [Levemir] Levemir FlexTouch 100 UNIT/ML Levemir FlexTouch 100 UNIT/ML 02/03/2020 12:00:00 AM EST active Levemir FlexTouch 100 UNIT/ML eC W1 ([facility]) 3 ML insulin detemir 100 UNT/ML Pen Inje ctor [Levemir] Levemir FlexTouch 100 UNIT/ML Levemir FlexTouch 100 UNIT/ML 02/03/2020 12:00:00 AM EST active Levemir FlexTouch 100 UNIT/ML eC W1 ([facility]) 3 ML insulin detemir 100 UNT/ML Pen Inje ctor [Levemir] Levemir FlexTouch 100 UNIT/ML Levemir FlexTouch 100 UNIT/ML 02/03/2020 12:00:00 AM EST active Levemir FlexTouch 100 UNIT/ML eC W1 ([facility]) 3 ML insulin detemir 100 UNT/ML Pen Inje ctor [Levemir] Levemir FlexTouch 100 UNIT/ML Levemir FlexTouch 100 UNIT/ML 02/03/2020 12:00:00 AM EST active Levemir FlexTouch 100 UNIT/ML eC W1 ([facility]) Acetaminophen 325 MG Oral Tablet Acetaminophen 325 MG 2019 12:00:00 AM EST 2.0 {tablets_as_needed} active Acetaminophen 325 MG eCW1 ([facility]) 3 ML insulin detemir 100 UNT/ML Pen Inje ctor [Levemir] Levemir FlexTouch 100 UNIT/ML Levemir FlexTouch 100 UNIT/ML 02/03/2020 12:00:00 AM EST active Levemir FlexTouch 100 UNIT/ML eC W1 ([facility]) 3 ML insulin detemir 100 UNT/ML Pen Inje ctor [Levemir] Levemir FlexTouch 100 UNIT/ML Levemir FlexTouch 100 UNIT/ML 02/03/2020 12:00:00 AM EST active Levemir FlexTouch 100 UNIT/ML eC W1 ([facility]) Acetaminophen 325 MG Oral Tablet Acetaminophen 325 MG 2019 12:00:00 AM EST 2.0 {tablets_as_needed} active Acetaminophen 325 MG eCW1 ([facility]) 3 ML insulin detemir 100 UNT/ML Pen Inje ctor [Levemir] Levemir FlexTouch 100 UNIT/ML Levemir FlexTouch 100 UNIT/ML 02/03/2020 12:00:00 AM EST active Levemir FlexTouch 100 UNIT/ML eC W1 ([facility]) 3 ML insulin detemir 100 UNT/ML Pen Inje ctor [Levemir] Levemir FlexTouch 100 UNIT/ML Levemir FlexTouch 100 UNIT/ML 02/03/2020 12:00:00 AM EST active Levemir FlexTouch 100 UNIT/ML eC W1 ([facility]) Amlodipine 5 MG Oral Tablet AmLODIPine Besylate 5 MG AmLODIP ine Besylate 5 MG 02/03/2020 12:00:00 AM EST 1.0 {tablet} active AmLODIPine Besylate 5 MG eCW1 ([facility]) 3 ML insulin detemir 100 UNT/ML Pen Inje ctor [Levemir] Levemir FlexTouch 100 UNIT/ML Levemir FlexTouch 100 UNIT/ML 02/03/2020 12:00:00 AM EST active Levemir FlexTouch 100 UNIT/ML eC W1 ([facility]) 3 ML insulin detemir 100 UNT/ML Pen Inje ctor [Levemir] Levemir FlexTouch 100 UNIT/ML Levemir FlexTouch 100 UNIT/ML 02/03/2020 12:00:00 AM EST active Levemir FlexTouch 100 UNIT/ML eC W1 ([facility]) 3 ML insulin detemir 100 UNT/ML Pen Inje ctor [Levemir] Levemir FlexTouch 100 UNIT/ML Levemir FlexTouch 100 UNIT/ML 02/03/2020 12:00:00 AM EST active Levemir FlexTouch 100 UNIT/ML eC W1 ([facility]) 3 ML insulin detemir 100 UNT/ML Pen Inje ctor [Levemir] Levemir FlexTouch 100 UNIT/ML Levemir FlexTouch 100 UNIT/ML 02/03/2020 12:00:00 AM EST active Levemir FlexTouch 100 UNIT/ML eC W1 ([facility]) 3 ML insulin detemir 100 UNT/ML Pen Inje ctor [Levemir] Levemir FlexTouch 100 UNIT/ML Levemir FlexTouch 100 UNIT/ML 02/03/2020 12:00:00 AM EST active Levemir FlexTouch 100 UNIT/ML eC W1 ([facility]) 3 ML insulin detemir 100 UNT/ML Pen Inje ctor [Levemir] Levemir FlexTouch 100 UNIT/ML Levemir FlexTouch 100 UNIT/ML 02/03/2020 12:00:00 AM EST active Levemir FlexTouch 100 UNIT/ML eC W1 ([facility]) Amlodipine 5 MG Oral Tablet AmLODIPine Besylate 5 MG AmLODIP ine Besylate 5 MG 02/03/2020 12:00:00 AM EST 1.0 {tablet} active AmLODIPine Besylate 5 MG eCW1 ([facility]) Hydrochlorothiazide 12.5 MG Oral Capsule hydrochlorothiazide (MICROZIDE) 12.5 MG capsule hydrochlorothiazide (MICROZIDE) 12.5 MG capsule 2019 12:00:[address] [facility] ferrous sulfate 325 MG Delayed Release O ral Tablet Ferrous Sulfate 325 (65 Fe) MG Ferrous Sulfate 325 (65 Fe) MG 01/26/2020 12:00:00 AM EST 1. 0 {tablet} active Ferrous Sulfate 325 (65 Fe) MG eCW1 ([facility]) ferrous sulfate 325 MG Delayed Release O ral Tablet Ferrous Sulfate 325 (65 Fe) MG Ferrous Sulfate 325 (65 Fe) MG 01/26/2020 12:00:00 AM EST 1. 0 {tablet} active Ferrous Sulfate 325 (65 Fe) MG eCW1 ([facility]) Pen [place] 5/16" UNK 01/26/2020 12:00:00 AM EST active Pen [place] 5/16" eCW1 ([facility]) Pen [place] 5/16" UNK 01/26/2020 12:00:00 AM EST active Pen [place] 5/16" eCW1 ([facility]) Pen [place] 5/16" UNK 01/26/2020 12:00:00 AM EST active [place] 5/16" eCW1 ([facility]) Pen [place] 5/16" UNK 01/26/2020 12:00:00 AM EST active Pen [place] 516" eCW1 ([facility]) Pen [place] 516" UNK 01/26/2020 12:00:00 AM EST active Pen [place] 516" eCW1 ([facility]) ferrous sulfate 325 MG Delayed Release O ral Tablet Ferrous Sulfate 325 (65 Fe) MG Ferrous Sulfate 325 (65 Fe) MG 01/26/2020 12:00:00 AM EST 1. 0 {tablet} active Ferrous Sulfate 325 (65 Fe) MG eCW1 ([facility]) Pen [place] 516" UNK 01/26/2020 12:00:00 AM EST active Pen [place] 516" eCW1 ([facility]) ferrous sulfate 325 MG Delayed Release O ral Tablet Ferrous Sulfate 325 (65 Fe) MG Ferrous Sulfate 325 (65 Fe) MG 01/26/2020 12:00:00 AM EST 1. 0 {tablet} active Ferrous Sulfate 325 (65 Fe) MG eCW1 ([facility]) ferrous sulfate 325 MG Delayed Release O ral Tablet Ferrous Sulfate 325 (65 Fe) MG Ferrous Sulfate 325 (65 Fe) MG 01/26/2020 12:00:00 AM EST 1. 0 {tablet} active Ferrous Sulfate 325 (65 Fe) MG eCW1 ([facility]) Pen [place] 516" UNK 01/26/2020 12:00:00 AM EST active Pen [place] 516" eCW1 ([facility]) ferrous sulfate 325 MG Delayed Release O ral Tablet Ferrous Sulfate 325 (65 Fe) MG Ferrous Sulfate 325 (65 Fe) MG 01/26/2020 12:00:00 AM EST 1. 0 {tablet} active Ferrous Sulfate 325 (65 Fe) MG eCW1 ([facility]) ferrous sulfate 325 MG Delayed Release O ral Tablet Ferrous Sulfate 325 (65 Fe) MG Ferrous Sulfate 325 (65 Fe) MG 01/26/2020 12:00:00 AM EST 1. 0 {tablet} active Ferrous Sulfate 325 (65 Fe) MG eCW1 ([facility]) Pen [place] 5/16" UNK 01/26/2020 12:00:00 AM EST active Pen [place] 516" eCW1 ([facility]) ferrous sulfate 325 MG Delayed Release O ral Tablet Ferrous Sulfate 325 (65 Fe) MG Ferrous Sulfate 325 (65 Fe) MG 01/26/2020 12:00:00 AM EST 1. 0 {tablet} active Ferrous Sulfate 325 (65 Fe) MG eCW1 ([facility]) Pen [place] 5/16" UNK 01/26/2020 12:00:00 AM EST active Pen [place] 5/16" eCW1 ([facility]) ferrous sulfate 325 MG Delayed Release O ral Tablet Ferrous Sulfate 325 (65 Fe) MG Ferrous Sulfate 325 (65 Fe) MG 01/26/2020 12:00:00 AM EST 1. 0 {tablet} active Ferrous Sulfate 325 (65 Fe) MG eCW1 ([facility]) ferrous sulfate 325 MG Delayed Release O ral Tablet Ferrous Sulfate 325 (65 Fe) MG Ferrous Sulfate 325 (65 Fe) MG 01/26/2020 12:00:00 AM EST 1. 0 {tablet} active Ferrous Sulfate 325 (65 Fe) MG eCW1 ([facility]) ferrous sulfate 325 MG Delayed Release O ral Tablet Ferrous Sulfate 325 (65 Fe) MG Ferrous Sulfate 325 (65 Fe) MG 01/26/2020 12:00:00 AM EST 1. 0 {tablet} active Ferrous Sulfate 325 (65 Fe) MG eCW1 ([facility]) ferrous sulfate 325 MG Delayed Release O ral Tablet Ferrous Sulfate 325 (65 Fe) MG Ferrous Sulfate 325 (65 Fe) MG 01/26/2020 12:00:00 AM EST 1. 0 {tablet} active Ferrous Sulfate 325 (65 Fe) MG eCW1 ([facility]) Pen [place] 5/16" UNK 01/26/2020 12:00:00 AM EST active Pen [place] 5/16" eCW1 ([facility]) Pen [place] 5/16" UNK 01/26/2020 12:00:00 AM EST active Pen [place] 5/16" eCW1 ([facility]) ferrous sulfate 325 MG Delayed Release O ral Tablet Ferrous Sulfate 325 (65 Fe) MG Ferrous Sulfate 325 (65 Fe) MG 01/26/2020 12:00:00 AM EST 1. 0 {tablet} active Ferrous Sulfate 325 (65 Fe) MG eCW1 ([facility]) Pen [place] 5/16" UNK 01/26/2020 12:00:00 AM EST active Pen [place] 5/16" eCW1 ([facility]) Pen [place] 5/16" UNK 01/26/2020 12:00:00 AM EST active Pen [place] 5/16" eCW1 ([facility]) ferrous sulfate 325 MG Delayed Release O ral Tablet Ferrous Sulfate 325 (65 Fe) MG Ferrous Sulfate 325 (65 Fe) MG 01/26/2020 12:00:00 AM EST 1. 0 {tablet} active Ferrous Sulfate 325 (65 Fe) MG eCW1 ([facility]) Pen [place] 5/16" UNK 01/26/2020 12:00:00 AM EST active Pen [place] 5/16" eCW1 ([facility]) Pen [place] 5/16" UNK 01/26/2020 12:00:00 AM EST active Pen [place] 5/16" eCW1 ([facility]) ferrous sulfate 325 MG Delayed Release O ral Tablet Ferrous Sulfate 325 (65 Fe) MG Ferrous Sulfate 325 (65 Fe) MG 01/26/2020 12:00:00 AM EST 1. 0 {tablet} active Ferrous Sulfate 325 (65 Fe) MG eCW1 ([facility]) Pen [place] 5/16" UNK 01/26/2020 12:00:00 AM EST active Pen [place] 5/16" eCW1 ([facility]) Pen [place] 5/16" UNK 01/26/2020 12:00:00 AM EST active Pen [place] 5/16" eCW1 ([facility]) ferrous sulfate 325 MG Delayed Release O ral Tablet Ferrous Sulfate 325 (65 Fe) MG Ferrous Sulfate 325 (65 Fe) MG 01/26/2020 12:00:00 AM EST 1. 0 {tablet} active Ferrous Sulfate 325 (65 Fe) MG eCW1 ([facility]) ferrous sulfate 325 MG Delayed Release O ral Tablet Ferrous Sulfate 325 (65 Fe) MG Ferrous Sulfate 325 (65 Fe) MG 01/26/2020 12:00:00 AM EST 1. 0 {tablet} active Ferrous Sulfate 325 (65 Fe) MG eCW1 ([facility]) ferrous sulfate 325 MG Delayed Release O ral Tablet Ferrous Sulfate 325 (65 Fe) MG Ferrous Sulfate 325 (65 Fe) MG 01/26/2020 12:00:00 AM EST 1. 0 {tablet} active Ferrous Sulfate 325 (65 Fe) MG eCW1 ([facility]) Pen [place] 5/16" UNK 01/26/2020 12:00:00 AM EST active [place] 5/16" eCW1 ([facility]) ferrous sulfate 325 MG Delayed Release O ral Tablet Ferrous Sulfate 325 (65 Fe) MG Ferrous Sulfate 325 (65 Fe) MG 01/26/2020 12:00:00 AM EST 1. 0 {tablet} active Ferrous Sulfate 325 (65 Fe) MG eCW1 ([facility]) Pen [place] 5/16" UNK 01/26/2020 12:00:00 AM EST active [place] 5/16" eCW1 ([facility]) Pen [place] 5/16" UNK 01/26/2020 12:00:00 AM EST active [place] 5/16" eCW1 ([facility]) ferrous sulfate 325 MG Delayed Release O ral Tablet Ferrous Sulfate 325 (65 Fe) MG Ferrous Sulfate 325 (65 Fe) MG 01/26/2020 12:00:00 AM EST 1. 0 {tablet} active Ferrous Sulfate 325 (65 Fe) MG W1 ([facility]) ferrous sulfate 325 MG Delayed Release O ral Tablet Ferrous Sulfate 325 (65 Fe) MG Ferrous Sulfate 325 (65 Fe) MG 01/26/2020 12:00:00 AM EST 1. 0 {tablet} active Ferrous Sulfate 325 (65 Fe) MG eCW1 ([facility]) ferrous sulfate 325 MG Delayed Release O ral Tablet Ferrous Sulfate 325 (65 Fe) MG Ferrous Sulfate 325 (65 Fe) MG 01/26/2020 12:00:00 AM EST 1. 0 {tablet} active Ferrous Sulfate 325 (65 Fe) MG eCW1 ([facility]) Pen [place] 5/16" UNK 01/26/2020 12:00:00 AM EST active Pen [place] 5/16" eCW1 ([facility]) Pen [place] 5/16" UNK 01/26/2020 12:00:00 AM EST active Pen [place] 5/16" eCW1 ([facility]) ferrous sulfate 325 MG Delayed Release O ral Tablet Ferrous Sulfate 325 (65 Fe) MG Ferrous Sulfate 325 (65 Fe) MG 01/26/2020 12:00:00 AM EST 1. 0 {tablet} active Ferrous Sulfate 325 (65 Fe) MG eCW1 ([facility]) ferrous sulfate 325 MG Delayed Release O ral Tablet Ferrous Sulfate 325 (65 Fe) MG Ferrous Sulfate 325 (65 Fe) MG 01/26/2020 12:00:00 AM EST 1. 0 {tablet} active Ferrous Sulfate 325 (65 Fe) MG eCW1 ([facility]) ferrous sulfate 325 MG Delayed Release O ral Tablet Ferrous Sulfate 325 (65 Fe) MG Ferrous Sulfate 325 (65 Fe) MG 01/26/2020 12:00:00 AM EST 1. 0 {tablet} active Ferrous Sulfate 325 (65 Fe) MG eCW1 ([facility]) Pen [place] 5/16" UNK 01/26/2020 12:00:00 AM EST active [place] 5/16" eCW1 ([facility]) Pen [place] 5/16" UNK 01/26/2020 12:00:00 AM EST active [place] 5/16" eCW1 ([facility]) ferrous sulfate 325 MG Delayed Release O ral Tablet Ferrous Sulfate 325 (65 Fe) MG Ferrous Sulfate 325 (65 Fe) MG 01/26/2020 12:00:00 AM EST 1. 0 {tablet} active Ferrous Sulfate 325 (65 Fe) MG eCW1 ([facility]) Pen [place] 5/16" UNK 01/26/2020 12:00:00 AM EST active [place] 5/16" eCW1 ([facility]) ferrous sulfate 325 MG Delayed Release O ral Tablet Ferrous Sulfate 325 (65 Fe) MG Ferrous Sulfate 325 (65 Fe) MG 01/26/2020 12:00:00 AM EST 1. 0 {tablet} active Ferrous Sulfate 325 (65 Fe) MG eCW1 ([facility]) ferrous sulfate 325 MG Delayed Release O ral Tablet Ferrous Sulfate 325 (65 Fe) MG Ferrous Sulfate 325 (65 Fe) MG 01/26/2020 12:00:00 AM EST 1. 0 {tablet} active Ferrous Sulfate 325 (65 Fe) MG eCW1 ([facility]) Pen [place] 5/16" UNK 01/26/2020 12:00:00 AM EST active [place] 5/16" eCW1 ([facility]) ferrous sulfate 325 MG Delayed Release O ral Tablet Ferrous Sulfate 325 (65 Fe) MG Ferrous Sulfate 325 (65 Fe) MG 01/26/2020 12:00:00 AM EST 1. 0 {tablet} active Ferrous Sulfate 325 (65 Fe) MG eCW1 ([facility]) ferrous sulfate 325 MG Delayed Release O ral Tablet Ferrous Sulfate 325 (65 Fe) MG Ferrous Sulfate 325 (65 Fe) MG 01/26/2020 12:00:00 AM EST 1. 0 {tablet} active Ferrous Sulfate 325 (65 Fe) MG eCW1 ([facility]) ferrous sulfate 325 MG Delayed Release O ral Tablet Ferrous Sulfate 325 (65 Fe) MG Ferrous Sulfate 325 (65 Fe) MG 01/26/2020 12:00:00 AM EST 1. 0 {tablet} active Ferrous Sulfate 325 (65 Fe) MG [facility] ([facility]) ferrous sulfate 325 MG Delayed Release O ral Tablet Ferrous Sulfate 325 (65 Fe) MG Ferrous Sulfate 325 (65 Fe) MG 01/26/2020 12:00:00 AM EST 1. 0 {tablet} active Ferrous Sulfate 325 (65 Fe) MG [facility] ([facility]) Pen [place] 5/16" UNK 01/26/2020 12:00:00 AM EST active Pen [place] 5/16" W ([facility]) Pen [place] 5/16" UNK 01/26/2020 12:00:00 AM EST active [place] 5/16" W ([facility]) Pen [place] 5/16" UNK 01/26/2020 12:00:00 AM EST active [place] 5/16" eCW1 ([facility]) ferrous sulfate 325 MG Delayed Release O ral Tablet Ferrous Sulfate 325 (65 Fe) MG Ferrous Sulfate 325 (65 Fe) MG 01/26/2020 12:00:00 AM EST 1. 0 {tablet} active Ferrous Sulfate 325 (65 Fe) MG eC ([facility]) [place] 5/16" UNK 01/26/2020 12:00:00 AM EST active [place] 5/16" eCW1 ([facility]) [place] 5/16" UNK 01/26/2020 12:00:00 AM EST active [place] 5/16" eCW1 ([facility]) Pen [place] 5/16" UNK 01/26/2020 12:00:00 AM EST active [place] 5/16" eCW1 ([facility]) [place] 5/16" UNK 01/26/2020 12:00:00 AM EST active [place] 5/16" eCW1 ([facility]) [place] 5/16" UNK 01/26/2020 12:00:00 AM EST active [place] 5/16" eCW1 ([facility]) [place] 5/16" UNK 01/26/2020 12:00:00 AM EST active [place] 5/16" eCW1 ([facility]) ferrous sulfate 325 MG Delayed Release O ral Tablet Ferrous Sulfate 325 (65 Fe) MG Ferrous Sulfate 325 (65 Fe) MG 01/26/2020 12:00:00 AM EST 1. 0 {tablet} active Ferrous Sulfate 325 (65 Fe) MG [facility] ([facility]) ferrous sulfate 325 MG Delayed Release O ral Tablet Ferrous Sulfate 325 (65 Fe) MG Ferrous Sulfate 325 (65 Fe) MG 01/26/2020 12:00:00 AM EST 1. 0 {tablet} active Ferrous Sulfate 325 (65 Fe) MG [facility] ([facility]) Pen [place] 5/16" UNK 01/26/2020 12:00:00 AM EST active [place] 5/16" eCW1 ([facility]) Pen [place] 5/16" UNK 01/26/2020 12:00:00 AM EST active [place] 5/16" eCW1 ([facility]) ferrous sulfate 325 MG Delayed Release O ral Tablet Ferrous Sulfate 325 (65 Fe) MG Ferrous Sulfate 325 (65 Fe) MG 01/26/2020 12:00:00 AM EST 1. 0 {tablet} active Ferrous Sulfate 325 (65 Fe) MG eCW1 ([facility]) ferrous sulfate 325 MG Delayed Release O ral Tablet Ferrous Sulfate 325 (65 Fe) MG Ferrous Sulfate 325 (65 Fe) MG 01/26/2020 12:00:00 AM EST 1. 0 {tablet} active Ferrous Sulfate 325 (65 Fe) MG eCW1 ([facility]) ferrous sulfate 325 MG Delayed Release O ral Tablet Ferrous Sulfate 325 (65 Fe) MG Ferrous Sulfate 325 (65 Fe) MG 01/26/2020 12:00:00 AM EST 1. 0 {tablet} active Ferrous Sulfate 325 (65 Fe) MG eCW1 ([facility]) ferrous sulfate 325 MG Delayed Release O ral Tablet Ferrous Sulfate 325 (65 Fe) MG Ferrous Sulfate 325 (65 Fe) MG 01/26/2020 12:00:00 AM EST 1. 0 {tablet} active Ferrous Sulfate 325 (65 Fe) MG W1 ([facility]) [place] 5/16" UNK 01/26/2020 12:00:00 AM EST active [place] 5/16" W1 ([facility]) [place] 5/16" UNK 01/26/2020 12:00:00 AM EST active [place] 5/16" W1 ([facility]) [place] 5/16" UNK 01/26/2020 12:00:00 AM EST active [place] 5/16" W1 ([facility]) [place] 5/16" UNK 01/26/2020 12:00:00 AM EST active [place] 5/16" eCW1 ([facility]) ferrous sulfate 325 MG Delayed Release O ral Tablet Ferrous Sulfate 325 (65 Fe) MG Ferrous Sulfate 325 (65 Fe) MG 01/26/2020 12:00:00 AM EST 1. 0 {tablet} active Ferrous Sulfate 325 (65 Fe) MG [facility] ([facility]) [place] 5/16" UNK 01/26/2020 12:00:00 AM EST active [place] 5/16" W1 ([facility]) [place] 5/16" UNK 01/26/2020 12:00:00 AM EST active [place] 5/16" W1 ([facility]) [place] 5/16" UNK 01/26/2020 12:00:00 AM EST active [place] 5/16" eCW1 ([facility]) [place] 5/16" UNK 01/26/2020 12:00:00 AM EST active [place] 5/16" eCW1 ([facility]) ferrous sulfate 325 MG Delayed Release O ral Tablet Ferrous Sulfate 325 (65 Fe) MG Ferrous Sulfate 325 (65 Fe) MG 01/26/2020 12:00:00 AM EST 1. 0 {tablet} active Ferrous Sulfate 325 (65 Fe) MG eCW1 ([facility]) [place] 5/16" UNK 01/26/2020 12:00:00 AM EST active [place] 5/16" eCW1 ([facility]) ferrous sulfate 325 MG Delayed Release O ral Tablet Ferrous Sulfate 325 (65 Fe) MG Ferrous Sulfate 325 (65 Fe) MG 01/26/2020 12:00:00 AM EST 1. 0 {tablet} active Ferrous Sulfate 325 (65 Fe) MG eCW1 ([facility]) [place] 5/16" UNK 01/26/2020 12:00:00 AM EST active [place] 5/16" eCW1 ([facility]) ferrous sulfate 325 MG Delayed Release O ral Tablet Ferrous Sulfate 325 (65 Fe) MG Ferrous Sulfate 325 (65 Fe) MG 01/26/2020 12:00:00 AM EST 1. 0 {tablet} active Ferrous Sulfate 325 (65 Fe) MG eCW1 ([facility]) [place] 5/16" UNK 01/26/2020 12:00:00 AM EST active [place] 5/16" eCW1 ([facility]) [place] 5/16" UNK 01/26/2020 12:00:00 AM EST active [place] 5/16" eCW1 ([facility]) [place] 5/16" UNK 01/26/2020 12:00:00 AM EST active [place] 5/16" eCW1 ([facility]) [place] 5/16" UNK 01/26/2020 12:00:00 AM EST active [place] 5/16" eCW1 ([facility]) [place] 5/16" UNK 01/26/2020 12:00:00 AM EST active [place] 5/16" eCW1 ([facility]) ferrous sulfate 325 MG Delayed Release O ral Tablet Ferrous Sulfate 325 (65 Fe) MG Ferrous Sulfate 325 (65 Fe) MG 01/26/2020 12:00:00 AM EST 1. 0 {tablet} active Ferrous Sulfate 325 (65 Fe) MG eCW1 ([facility]) [place] 5/16" UNK 01/26/2020 12:00:00 AM EST active [place] 5/16" eCW1 ([facility]) ferrous sulfate 325 MG Delayed Release O ral Tablet Ferrous Sulfate 325 (65 Fe) MG Ferrous Sulfate 325 (65 Fe) MG 01/26/2020 12:00:00 AM EST 1. 0 {tablet} active Ferrous Sulfate 325 (65 Fe) MG eCW1 ([facility]) [place] 5/16" UNK 01/26/2020 12:00:00 AM EST active [place] 5/16" eCW1 ([facility]) [place] 5/16" UNK 01/26/2020 12:00:00 AM EST active [place] 5/16" eCW1 ([facility]) ferrous sulfate 325 MG Delayed Release O ral Tablet Ferrous Sulfate 325 (65 Fe) MG Ferrous Sulfate 325 (65 Fe) MG 01/26/2020 12:00:00 AM EST 1. 0 {tablet} active Ferrous Sulfate 325 (65 Fe) MG eCW1 ([facility]) [place] 5/16" UNK 01/26/2020 12:00:00 AM EST active [place] 5/16" eCW1 ([facility]) ferrous sulfate 325 MG Delayed Release O ral Tablet Ferrous Sulfate 325 (65 Fe) MG Ferrous Sulfate 325 (65 Fe) MG 01/26/2020 12:00:00 AM EST 1. 0 {tablet} active Ferrous Sulfate 325 (65 Fe) MG eCW1 ([facility]) ferrous sulfate 325 MG Delayed Release O ral Tablet Ferrous Sulfate 325 (65 Fe) MG Ferrous Sulfate 325 (65 Fe) MG 01/26/2020 12:00:00 AM EST 1. 0 {tablet} active Ferrous Sulfate 325 (65 Fe) MG eCW1 ([facility]) [place] 5/16" UNK 01/26/2020 12:00:00 AM EST active [place] 5/16" eCW1 ([facility]) ferrous sulfate 325 MG Delayed Release O ral Tablet Ferrous Sulfate 325 (65 Fe) MG Ferrous Sulfate 325 (65 Fe) MG 01/26/2020 12:00:00 AM EST 1. 0 {tablet} active Ferrous Sulfate 325 (65 Fe) MG eCW1 ([facility]) ferrous sulfate 325 MG Delayed Release O ral Tablet Ferrous Sulfate 325 (65 Fe) MG Ferrous Sulfate 325 (65 Fe) MG 01/26/2020 12:00:00 AM EST 1. 0 {tablet} active Ferrous Sulfate 325 (65 Fe) MG W1 ([facility]) [place] 5/16" UNK 01/26/2020 12:00:00 AM EST active [place] 5/16" eCW1 ([facility]) [place] 5/16" UNK 01/26/2020 12:00:00 AM EST active [place] 5/16" eCW1 ([facility]) [place] 5/16" UNK 01/26/2020 12:00:00 AM EST active [place] 5/16" W1 ([facility]) [place] 5/16" UNK 01/26/2020 12:00:00 AM EST active [place] 5/16" eCW1 ([facility]) ferrous sulfate 325 MG Delayed Release O ral Tablet Ferrous Sulfate 325 (65 Fe) MG Ferrous Sulfate 325 (65 Fe) MG 01/26/2020 12:00:00 AM EST 1. 0 {tablet} active Ferrous Sulfate 325 (65 Fe) MG W1 ([facility]) [place] 5/16" UNK 01/26/2020 12:00:00 AM EST active [place] 5/16" W1 ([facility]) Pen [place] 5/16" UNK 01/26/2020 12:00:00 AM EST active [place] 5/16" eCW1 ([facility]) ferrous sulfate 325 MG Delayed Release O ral Tablet Ferrous Sulfate 325 (65 Fe) MG Ferrous Sulfate 325 (65 Fe) MG 01/26/2020 12:00:00 AM EST 1. 0 {tablet} active Ferrous Sulfate 325 (65 Fe) MG W1 ([facility]) [place] 5/16" UNK 01/26/2020 12:00:00 AM EST active [place] 5/16" eCW1 ([facility]) Pen [place] 5/16" UNK 01/26/2020 12:00:00 AM EST active [place] 5/16" eCW1 ([facility]) ferrous sulfate 325 MG Delayed Release O ral Tablet Ferrous Sulfate 325 (65 Fe) MG Ferrous Sulfate 325 (65 Fe) MG 01/26/2020 12:00:00 AM EST 1. 0 {tablet} active Ferrous Sulfate 325 (65 Fe) MG eCW1 ([facility]) ferrous sulfate 325 MG Delayed Release O ral Tablet Ferrous Sulfate 325 (65 Fe) MG Ferrous Sulfate 325 (65 Fe) MG 01/26/2020 12:00:00 AM EST 1. 0 {tablet} active Ferrous Sulfate 325 (65 Fe) MG eCW1 ([facility]) ferrous sulfate 325 MG Delayed Release O ral Tablet Ferrous Sulfate 325 (65 Fe) MG Ferrous Sulfate 325 (65 Fe) MG 01/26/2020 12:00:00 AM EST 1. 0 {tablet} active Ferrous Sulfate 325 (65 Fe) MG eCW1 ([facility]) Pen [place] 5/16" UNK 01/26/2020 12:00:00 AM EST active [place] 5/16" eCW1 ([facility]) Pen [place] 5/16" UNK 01/26/2020 12:00:00 AM EST active [place] 5/16" eCW1 ([facility]) ferrous sulfate 325 MG Delayed Release O ral Tablet Ferrous Sulfate 325 (65 Fe) MG Ferrous Sulfate 325 (65 Fe) MG 01/26/2020 12:00:00 AM EST 1. 0 {tablet} active Ferrous Sulfate 325 (65 Fe) MG eCW1 ([facility]) ferrous sulfate 325 MG Delayed Release O ral Tablet Ferrous Sulfate 325 (65 Fe) MG Ferrous Sulfate 325 (65 Fe) MG 01/26/2020 12:00:00 AM EST 1. 0 {tablet} active Ferrous Sulfate 325 (65 Fe) MG eCW1 ([facility]) ferrous sulfate 325 MG Delayed Release O ral Tablet Ferrous Sulfate 325 (65 Fe) MG Ferrous Sulfate 325 (65 Fe) MG 01/26/2020 12:00:00 AM EST 1. 0 {tablet} active Ferrous Sulfate 325 (65 Fe) MG eCW1 ([facility]) ferrous sulfate 325 MG Delayed Release O ral Tablet Ferrous Sulfate 325 (65 Fe) MG Ferrous Sulfate 325 (65 Fe) MG 01/26/2020 12:00:00 AM EST 1. 0 {tablet} active Ferrous Sulfate 325 (65 Fe) MG eCW1 ([facility]) ferrous sulfate 325 MG Delayed Release O ral Tablet Ferrous Sulfate 325 (65 Fe) MG Ferrous Sulfate 325 (65 Fe) MG 01/26/2020 12:00:00 AM EST 1. 0 {tablet} active Ferrous Sulfate 325 (65 Fe) MG eCW1 ([facility]) ferrous sulfate 325 MG Delayed Release O ral Tablet Ferrous Sulfate 325 (65 Fe) MG Ferrous Sulfate 325 (65 Fe) MG 01/26/2020 12:00:00 AM EST 1. 0 {tablet} active Ferrous Sulfate 325 (65 Fe) MG eCW1 ([facility]) ferrous sulfate 325 MG Delayed Release O ral Tablet Ferrous Sulfate 325 (65 Fe) MG Ferrous Sulfate 325 (65 Fe) MG 01/26/2020 12:00:00 AM EST 1. 0 {tablet} active Ferrous Sulfate 325 (65 Fe) MG eCW1 ([facility]) Pen [place] 5/16" UNK 01/26/2020 12:00:00 AM EST active [place] 5/16" eCW1 ([facility]) ferrous sulfate 325 MG Delayed Release O ral Tablet Ferrous Sulfate 325 (65 Fe) MG Ferrous Sulfate 325 (65 Fe) MG 01/26/2020 12:00:00 AM EST 1. 0 {tablet} active Ferrous Sulfate 325 (65 Fe) MG eCW1 ([facility]) ferrous sulfate 325 MG Delayed Release O ral Tablet Ferrous Sulfate 325 (65 Fe) MG Ferrous Sulfate 325 (65 Fe) MG 01/26/2020 12:00:00 AM EST 1. 0 {tablet} active Ferrous Sulfate 325 (65 Fe) MG eCW1 ([facility]) [place] 5/16" UNK 01/26/2020 12:00:00 AM EST active [place] 5/16" eCW1 ([facility]) ferrous sulfate 325 MG Delayed Release O ral Tablet Ferrous Sulfate 325 (65 Fe) MG Ferrous Sulfate 325 (65 Fe) MG 01/26/2020 12:00:00 AM EST 1. 0 {tablet} active Ferrous Sulfate 325 (65 Fe) MG eCW1 ([facility]) [place] 5/16" UNK 01/26/2020 12:00:00 AM EST active [place] 5/16" eCW1 ([facility]) Pen [place] 5/16" UNK 01/26/2020 12:00:00 AM EST active Pen [place] 516" eCW1 ([facility]) ferrous sulfate 325 MG Delayed Release O ral Tablet Ferrous Sulfate 325 (65 Fe) MG Ferrous Sulfate 325 (65 Fe) MG 01/26/2020 12:00:00 AM EST 1. 0 {tablet} active Ferrous Sulfate 325 (65 Fe) MG eCW1 ([facility]) ferrous sulfate 325 MG Delayed Release O ral Tablet Ferrous Sulfate 325 (65 Fe) MG Ferrous Sulfate 325 (65 Fe) MG 01/26/2020 12:00:00 AM EST 1. 0 {tablet} active Ferrous Sulfate 325 (65 Fe) MG eCW1 ([facility]) ferrous sulfate 325 MG Delayed Release O ral Tablet Ferrous Sulfate 325 (65 Fe) MG Ferrous Sulfate 325 (65 Fe) MG 01/26/2020 12:00:00 AM EST 1. 0 {tablet} active Ferrous Sulfate 325 (65 Fe) MG W1 ([facility]) ferrous sulfate 325 MG Delayed Release O ral Tablet Ferrous Sulfate 325 (65 Fe) MG Ferrous Sulfate 325 (65 Fe) MG 01/26/2020 12:00:00 AM EST 1. 0 {tablet} active Ferrous Sulfate 325 (65 Fe) MG [facility] ([facility]) ferrous sulfate 325 MG Delayed Release O ral Tablet Ferrous Sulfate 325 (65 Fe) MG Ferrous Sulfate 325 (65 Fe) MG 01/26/2020 12:00:00 AM EST 1. 0 {tablet} active Ferrous Sulfate 325 (65 Fe) MG eCW1 ([facility]) ferrous sulfate 325 MG Delayed Release O ral Tablet Ferrous Sulfate 325 (65 Fe) MG Ferrous Sulfate 325 (65 Fe) MG 01/26/2020 12:00:00 AM EST 1. 0 {tablet} active Ferrous Sulfate 325 (65 Fe) MG eCW1 ([facility]) ferrous sulfate 325 MG Delayed Release O ral Tablet Ferrous Sulfate 325 (65 Fe) MG Ferrous Sulfate 325 (65 Fe) MG 01/26/2020 12:00:00 AM EST 1. 0 {tablet} active Ferrous Sulfate 325 (65 Fe) MG eCW1 ([facility]) Pen [place] 5/16" UNK 01/26/2020 12:00:00 AM EST active Pen [place] 516" eCW1 ([facility]) Lancets - Lancets - 12/07/2019 12:00:00 AM EDT act mukesh Lancets - eCW1 ([facility]) Lancets - Lancets - 12/07/2019 12:00:00 AM EDT act mukesh Lancets - eCW1 ([facility]) Lancets - Lancets - 12/07/2019 12:00:00 AM EDT act mukesh Lancets - eCW1 ([facility]) Glucometer UNK 12/07/2019 12:00:00 AM EDT active Glucometer eCW1 ([facility]) Lancets - Lancets - 12/07/2019 12:00:00 AM EDT act mukesh Lancets - eCW1 ([facility]) Glucometer UNK 12/07/2019 12:00:00 AM EDT active Glucometer eCW1 ([facility]) Lancets - Lancets - 12/07/2019 12:00:00 AM EDT act mukesh Lancets - eCW1 ([facility]) Glucometer UNK 12/07/2019 12:00:00 AM EDT active Glucometer eCW1 ([facility]) Lancets - Lancets - 12/07/2019 12:00:00 AM EDT act mukesh Lancets - eCW1 ([facility]) Glucometer UNK 12/07/2019 12:00:00 AM EDT active Glucometer eCW1 ([facility]) Lancets - Lancets - 12/07/2019 12:00:00 AM EDT act mukesh Lancets - eCW1 ([facility]) Glucometer UNK 12/07/2019 12:00:00 AM EDT active Glucometer eCW1 ([facility]) Glucometer UNK 12/07/2019 12:00:00 AM EDT active Glucometer eCW1 ([facility]) Glucometer UNK 12/07/2019 12:00:00 AM EDT active Glucometer eCW1 ([facility]) Glucometer UNK 12/07/2019 12:00:00 AM EDT active Glucometer eCW1 ([facility]) Lancets - Lancets - 12/07/2019 12:00:00 AM EDT act mukesh Lancets - eCW1 ([facility]) Lancets - Lancets - 12/07/2019 12:00:00 AM EDT act mukesh Lancets - eCW1 ([facility]) Lancets - Lancets - 12/07/2019 12:00:00 AM EDT act mukesh Lancets - eCW1 ([facility]) Lancets - Lancets - 12/07/2019 12:00:00 AM EDT act mukesh Lancets - eCW1 ([facility]) Lancets - Lancets - 12/07/2019 12:00:00 AM EDT act mukesh Lancets - eCW1 ([facility]) Glucometer UNK 12/07/2019 12:00:00 AM EDT active Glucometer eCW1 ([facility]) Lancets - Lancets - 12/07/2019 12:00:00 AM EDT act mukesh Lancets - eCW1 ([facility]) Glucometer UNK 12/07/2019 12:00:00 AM EDT active Glucometer eCW1 ([facility]) Lancets - Lancets - 12/07/2019 12:00:00 AM EDT act mukesh Lancets - eCW1 ([facility]) Glucometer UNK 12/07/2019 12:00:00 AM EDT active Glucometer eCW1 ([facility]) Glucometer UNK 12/07/2019 12:00:00 AM EDT active Glucometer eCW1 ([facility]) Lancets - Lancets - 12/07/2019 12:00:00 AM EDT act mukesh Lancets - eCW1 ([facility]) Lancets - Lancets - 12/07/2019 12:00:00 AM EDT act mukesh Lancets - eCW1 ([facility]) Lancets - Lancets - 12/07/2019 12:00:00 AM EDT act mukesh Lancets - eCW1 ([facility]) Lancets - Lancets - 12/07/2019 12:00:00 AM EDT act mukesh Lancets - eCW1 ([facility]) Glucometer UNK 12/07/2019 12:00:00 AM EDT active Glucometer eCW1 ([facility]) Lancets - Lancets - 12/07/2019 12:00:00 AM EDT act mukesh Lancets - eCW1 ([facility]) Glucometer UNK 12/07/2019 12:00:00 AM EDT active Glucometer eCW1 ([facility]) Glucometer UNK 12/07/2019 12:00:00 AM EDT active Glucometer eCW1 ([facility]) Glucometer UNK 12/07/2019 12:00:00 AM EDT active Glucometer eCW1 ([facility]) Lancets - Lancets - 12/07/2019 12:00:00 AM EDT act mukseh Lancets - eCW1 ([facility]) Glucometer UNK 12/07/2019 12:00:00 AM EDT active Glucometer eCW1 ([facility]) Lancets - Lancets - 12/07/2019 12:00:00 AM EDT act mukesh Lancets - eCW1 ([facility]) Glucometer UNK 12/07/2019 12:00:00 AM EDT active Glucometer eCW1 ([facility]) Lancets - Lancets - 12/07/2019 12:00:00 AM EDT act mukesh Lancets - eCW1 ([facility]) Lancets - Lancets - 12/07/2019 12:00:00 AM EDT act mukesh Lancets - eCW1 ([facility]) Glucometer UNK 12/07/2019 12:00:00 AM EDT active Glucometer eCW1 ([facility]) Glucometer UNK 12/07/2019 12:00:00 AM EDT active Glucometer eCW1 ([facility]) Lancets - Lancets - 12/07/2019 12:00:00 AM EDT act mukesh Lancets - eCW1 ([facility]) Lancets - Lancets - 12/07/2019 12:00:00 AM EDT act mukesh Lancets - eCW1 ([facility]) Lancets - Lancets - 12/07/2019 12:00:00 AM EDT act mukesh Lancets - eCW1 ([facility]) Lancets - Lancets - 12/07/2019 12:00:00 AM EDT act mukesh Lancets - eCW1 ([facility]) Glucometer UNK 12/07/2019 12:00:00 AM EDT active Glucometer eCW1 ([facility]) Lancets - Lancets - 12/07/2019 12:00:00 AM EDT act mukesh Lancets - eCW1 ([facility]) Lancets - Lancets - 12/07/2019 12:00:00 AM EDT act mukesh Lancets - eCW1 ([facility]) Lancets - Lancets - 12/07/2019 12:00:00 AM EDT act mukesh Lancets - eCW1 ([facility]) Glucometer UNK 12/07/2019 12:00:00 AM EDT active Glucometer eCW1 ([facility]) Lancets - Lancets - 12/07/2019 12:00:00 AM EDT act mukesh Lancets - eCW1 ([facility]) Lancets - Lancets - 12/07/2019 12:00:00 AM EDT act mukesh Lancets - eCW1 ([facility]) Lancets - Lancets - 12/07/2019 12:00:00 AM EDT act mukesh Lancets - eCW1 ([facility]) Lancets - Lancets - 12/07/2019 12:00:00 AM EDT act mukesh Lancets - eCW1 ([facility]) Lancets - Lancets - 12/07/2019 12:00:00 AM EDT act mukesh Lancets - eCW1 ([facility]) Lancets - Lancets - 12/07/2019 12:00:00 AM EDT act mukesh Lancets - eCW1 ([facility]) Glucometer UNK 12/07/2019 12:00:00 AM EDT active Glucometer eCW1 ([facility]) Lancets - Lancets - 12/07/2019 12:00:00 AM EDT act mukesh Lancets - eCW1 ([facility]) Glucometer UNK 12/07/2019 12:00:00 AM EDT active Glucometer eCW1 ([facility]) Glucometer UNK 12/07/2019 12:00:00 AM EDT active Glucometer eCW1 ([facility]) Glucometer UNK 12/07/2019 12:00:00 AM EDT active Glucometer eCW1 ([facility]) Glucometer UNK 12/07/2019 12:00:00 AM EDT active Glucometer eCW1 ([facility]) Glucometer UNK 12/07/2019 12:00:00 AM EDT active Glucometer eCW1 ([facility]) Glucometer UNK 12/07/2019 12:00:00 AM EDT active Glucometer eCW1 ([facility]) Glucometer UNK 12/07/2019 12:00:00 AM EDT active Glucometer eCW1 ([facility]) Lancets - Lancets - 12/07/2019 12:00:00 AM EDT act mukesh Lancets - eCW1 ([facility]) Lancets - Lancets - 12/07/2019 12:00:00 AM EDT act mukesh Lancets - eCW1 ([facility]) Glucometer UNK 12/07/2019 12:00:00 AM EDT active Glucometer eCW1 ([facility]) Glucometer UNK 12/07/2019 12:00:00 AM EDT active Glucometer eCW1 ([facility]) Glucometer UNK 12/07/2019 12:00:00 AM EDT active Glucometer eCW1 ([facility]) Glucometer UNK 12/07/2019 12:00:00 AM EDT active Glucometer eCW1 ([facility]) Lancets - Lancets - 12/07/2019 12:00:00 AM EDT act mukesh Lancets - eCW1 ([facility]) Glucometer UNK 12/07/2019 12:00:00 AM EDT active Glucometer eCW1 ([facility]) Lancets - Lancets - 12/07/2019 12:00:00 AM EDT act mukesh Lancets - eCW1 ([facility]) Glucometer UNK 12/07/2019 12:00:00 AM EDT active Glucometer eCW1 ([facility]) Glucometer UNK 12/07/2019 12:00:00 AM EDT active Glucometer eCW1 ([facility]) Lancets - Lancets - 12/07/2019 12:00:00 AM EDT act mukesh Lancets - eCW1 ([facility]) Glucometer UNK 12/07/2019 12:00:00 AM EDT active Glucometer eCW1 ([facility]) Glucometer UNK 12/07/2019 12:00:00 AM EDT active Glucometer eCW1 ([facility]) Glucometer UNK 12/07/2019 12:00:00 AM EDT active Glucometer eCW1 ([facility]) Lancets - Lancets - 12/07/2019 12:00:00 AM EDT act mukesh Lancets - eCW1 ([facility]) Glucometer UNK 12/07/2019 12:00:00 AM EDT active Glucometer eCW1 ([facility]) Glucometer UNK 12/07/2019 12:00:00 AM EDT active Glucometer eCW1 ([facility]) Glucometer UNK 12/07/2019 12:00:00 AM EDT active Glucometer eCW1 ([facility]) Glucometer UNK 12/07/2019 12:00:00 AM EDT active Glucometer eCW1 ([facility]) Lancets - Lancets - 12/07/2019 12:00:00 AM EDT act mukesh Lancets - eCW1 ([facility]) Lancets - Lancets - 12/07/2019 12:00:00 AM EDT act mukesh Lancets - eCW1 ([facility]) Lancets - Lancets - 12/07/2019 12:00:00 AM EDT act mukesh Lancets - eCW1 ([facility]) Lancets - Lancets - 12/07/2019 12:00:00 AM EDT act mukesh Lancets - eCW1 ([facility]) Lancets - Lancets - 12/07/2019 12:00:00 AM EDT act mkuesh Lancets - eCW1 ([facility]) Lancets - Lancets - 12/07/2019 12:00:00 AM EDT act mukesh Lancets - eCW1 ([facility]) Glucometer UNK 12/07/2019 12:00:00 AM EDT active Glucometer eCW1 ([facility]) Lancets - Lancets - 12/07/2019 12:00:00 AM EDT act mukesh Lancets - eCW1 ([facility]) Lancets - Lancets - 12/07/2019 12:00:00 AM EDT act mukesh Lancets - eCW1 ([facility]) Glucometer UNK 12/07/2019 12:00:00 AM EDT active Glucometer eCW1 ([facility]) Glucometer UNK 12/07/2019 12:00:00 AM EDT active Glucometer eCW1 ([facility]) Lancets - Lancets - 12/07/2019 12:00:00 AM EDT act mukesh Lancets - eCW1 ([facility]) Lancets - Lancets - 12/07/2019 12:00:00 AM EDT act mukesh Lancets - eCW1 ([facility]) Lancets - Lancets - 12/07/2019 12:00:00 AM EDT act mukesh Lancets - eCW1 ([facility]) Lancets - Lancets - 12/07/2019 12:00:00 AM EDT act mukesh Lancets - eCW1 ([facility]) Lancets - Lancets - 12/07/2019 12:00:00 AM EDT act mukesh Lancets - eCW1 ([facility]) Glucometer UNK 12/07/2019 12:00:00 AM EDT active Glucometer eCW1 ([facility]) Glucometer UNK 12/07/2019 12:00:00 AM EDT active Glucometer eCW1 ([facility]) Glucometer UNK 12/07/2019 12:00:00 AM EDT active Glucometer eCW1 ([facility]) Lancets - Lancets - 12/07/2019 12:00:00 AM EDT act mukesh Lancets - eCW1 ([facility]) Lancets - Lancets - 12/07/2019 12:00:00 AM EDT act mukesh Lancets - eCW1 ([facility]) Glucometer UNK 12/07/2019 12:00:00 AM EDT active Glucometer eCW1 ([facility]) Lancets - Lancets - 12/07/2019 12:00:00 AM EDT act umkesh Lancets - eCW1 ([facility]) Lancets - Lancets - 12/07/2019 12:00:00 AM EDT act mukesh Lancets - eCW1 ([facility]) Glucometer UNK 12/07/2019 12:00:00 AM EDT active Glucometer eCW1 ([facility]) Lancets - Lancets - 12/07/2019 12:00:00 AM EDT act mukesh Lancets - eCW1 ([facility]) Glucometer UNK 12/07/2019 12:00:00 AM EDT active Glucometer eCW1 ([facility]) Lancets - Lancets - 12/07/2019 12:00:00 AM EDT act mukesh Lancets - eCW1 ([facility]) Glucometer UNK 12/07/2019 12:00:00 AM EDT active Glucometer eCW1 ([facility]) Lancets - Lancets - 12/07/2019 12:00:00 AM EDT act mukesh Lancets - eCW1 ([facility]) Glucometer UNK 12/07/2019 12:00:00 AM EDT active Glucometer eCW1 ([facility]) Glucometer UNK 12/07/2019 12:00:00 AM EDT active Glucometer eCW1 ([facility]) Glucometer UNK 12/07/2019 12:00:00 AM EDT active Glucometer eCW1 ([facility]) Glucometer UNK 12/07/2019 12:00:00 AM EDT active Glucometer eCW1 ([facility]) Glucometer UNK 12/07/2019 12:00:00 AM EDT active Glucometer eCW1 ([facility]) Glucometer UNK 12/07/2019 12:00:00 AM EDT active Glucometer eCW1 ([facility]) Glucometer UNK 12/07/2019 12:00:00 AM EDT active Glucometer eCW1 ([facility]) Glucometer UNK 12/07/2019 12:00:00 AM EDT active Glucometer eCW1 ([facility]) Glucometer UNK 12/07/2019 12:00:00 AM EDT active Glucometer eCW1 ([facility]) Lancets - Lancets - 12/07/2019 12:00:00 AM EDT act mukesh Lancets - eCW1 ([facility]) Lancets - Lancets - 12/07/2019 12:00:00 AM EDT act mukesh Lancets - eCW1 ([facility]) Glucometer UNK 12/07/2019 12:00:00 AM EDT active Glucometer eCW1 ([facility]) Glucometer UNK 12/07/2019 12:00:00 AM EDT active Glucometer eCW1 ([facility]) Lancets - Lancets - 12/07/2019 12:00:00 AM EDT act mukesh Lancets - eCW1 ([facility]) Glucometer UNK 12/07/2019 12:00:00 AM EDT active Glucometer eCW1 ([facility]) Glucometer UNK 12/07/2019 12:00:00 AM EDT active Glucometer eCW1 ([facility]) Lancets - Lancets - 12/07/2019 12:00:00 AM EDT act mukesh Lancets - eCW1 ([facility]) Lancets - Lancets - 12/07/2019 12:00:00 AM EDT act mukesh Lancets - eCW1 ([facility]) Lancets - Lancets - 12/07/2019 12:00:00 AM EDT act mukesh Lancets - eCW1 ([facility]) Lancets - Lancets - 12/07/2019 12:00:00 AM EDT act mukesh Lancets - eCW1 ([facility]) Glucometer UNK 12/07/2019 12:00:00 AM EDT active Glucometer eCW1 ([facility]) Glucometer UNK 12/07/2019 12:00:00 AM EDT active Glucometer eCW1 ([facility]) Lancets - Lancets - 12/07/2019 12:00:00 AM EDT act mukesh Lancets - eCW1 ([facility]) Glucometer UNK 12/07/2019 12:00:00 AM EDT active Glucometer eCW1 ([facility]) Lancets - Lancets - 12/07/2019 12:00:00 AM EDT act mukesh Lancets - eCW1 ([facility]) Glucometer UNK 12/07/2019 12:00:00 AM EDT active Glucometer eCW1 ([facility]) Glucometer UNK 12/07/2019 12:00:00 AM EDT active Glucometer eCW1 ([facility]) Glucometer UNK 12/07/2019 12:00:00 AM EDT active Glucometer eCW1 ([facility]) Lancets - Lancets - 12/07/2019 12:00:00 AM EDT act mukesh Lancets - eCW1 ([facility]) Lancets - Lancets - 12/07/2019 12:00:00 AM EDT act mukesh Lancets - eCW1 ([facility]) Lancets - Lancets - 12/07/2019 12:00:00 AM EDT act mukesh Lancets - eCW1 ([facility]) Lancets - Lancets - 12/07/2019 12:00:00 AM EDT act mukesh Lancets - eCW1 ([facility]) Lancets - Lancets - 12/07/2019 12:00:00 AM EDT act mukesh Lancets - eCW1 ([facility]) Lancets - Lancets - 12/07/2019 12:00:00 AM EDT act mukesh Lancets - eCW1 ([facility]) Lancets - Lancets - 12/07/2019 12:00:00 AM EDT act mukesh Lancets - eCW1 ([facility]) Glucometer UNK 12/07/2019 12:00:00 AM EDT active Glucometer eCW1 ([facility]) Lancets - Lancets - 12/07/2019 12:00:00 AM EDT act mukesh Lancets - eCW1 ([facility]) Glucometer UNK 12/07/2019 12:00:00 AM EDT active Glucometer eCW1 ([facility]) Glucometer UNK 12/07/2019 12:00:00 AM EDT active Glucometer eCW1 ([facility]) Glucometer UNK 12/07/2019 12:00:00 AM EDT active Glucometer eCW1 ([facility]) Lancets - Lancets - 12/07/2019 12:00:00 AM EDT act mukesh Lancets - eCW1 ([facility]) Lancets - Lancets - 12/07/2019 12:00:00 AM EDT act mukesh Lancets - eCW1 ([facility]) Glucometer UNK 12/07/2019 12:00:00 AM EDT active Glucometer eCW1 ([facility]) Glucometer UNK 12/07/2019 12:00:00 AM EDT active Glucometer eCW1 ([facility]) Glucometer UNK 12/07/2019 12:00:00 AM EDT active Glucometer eCW1 ([facility]) Glucometer UNK 12/07/2019 12:00:00 AM EDT active Glucometer eCW1 ([facility]) Lancets - Lancets - 12/07/2019 12:00:00 AM EDT act mukesh Lancets - eCW1 ([facility]) Glucometer UNK 12/07/2019 12:00:00 AM EDT active Glucometer eCW1 ([facility]) Glucometer UNK 12/07/2019 12:00:00 AM EDT active Glucometer eCW1 ([facility]) Acetaminophen 325 MG / Hydrocodone Bri[place] trate 5 MG Oral Tablet Hydrocodone- Acetaminophen 5-325 MG Hydrocodone-Acetaminophen 5-325 MG 12/03/2019 12:00:00 AM EDT 1.0 {tablet_as_needed} active Hydrocodone-Acetaminophen 5-325 MG eCW1 ([facility]) Acetaminophen 325 MG / Hydrocodone [place] trate 5 MG Oral Tablet Hydrocodone- Acetaminophen 5-325 MG Hydrocodone-Acetaminophen 5-325 MG 12/03/2019 12:00:00 AM EDT 1.0 {tablet_as_needed} active Hydrocodone-Acetaminophen 5-325 MG eCW1 ([facility]) Acetaminophen 325 MG / Hydrocodone [place] trate 5 MG Oral Tablet Hydrocodone- Acetaminophen 5-325 MG Hydrocodone-Acetaminophen 5-325 MG 12/03/2019 12:00:00 AM EDT 1.0 {tablet_as_needed} active Hydrocodone-Acetaminophen 5-325 MG eCW1 ([facility]) Acetaminophen 325 MG / Hydrocodone [place] trate 5 MG Oral Tablet Hydrocodone- Acetaminophen 5-325 MG Hydrocodone-Acetaminophen 5-325 MG 12/03/2019 12:00:00 AM EDT 1.0 {tablet_as_needed} active Hydrocodone-Acetaminophen 5-325 MG eCW1 ([facility]) Acetaminophen 325 MG / Hydrocodone [place] trate 5 MG Oral Tablet Hydrocodone- Acetaminophen 5-325 MG Hydrocodone-Acetaminophen 5-325 MG 12/03/2019 12:00:00 AM EDT 1.0 {tablet_as_needed} active Hydrocodone-Acetaminophen 5-325 MG eCW1 ([facility]) Acetaminophen 325 MG / Hydrocodone [place] trate 5 MG Oral Tablet Hydrocodone- Acetaminophen 5-325 MG Hydrocodone-Acetaminophen 5-325 MG 12/03/2019 12:00:00 AM EDT 1.0 {tablet_as_needed} active Hydrocodone-Acetaminophen 5-325 MG eCW1 ([facility]) Acetaminophen 325 MG / Hydrocodone [place] trate 5 MG Oral Tablet Hydrocodone- Acetaminophen 5-325 MG Hydrocodone-Acetaminophen 5-325 MG 12/03/2019 12:00:00 AM EDT 1.0 {tablet_as_needed} active Hydrocodone-Acetaminophen 5-325 MG eCW1 ([facility]) Acetaminophen 325 MG / Hydrocodone [place] trate 5 MG Oral Tablet Hydrocodone- Acetaminophen 5-325 MG Hydrocodone-Acetaminophen 5-325 MG 12/03/2019 12:00:00 AM EDT 1.0 {tablet_as_needed} active Hydrocodone-Acetaminophen 5-325 MG eCW1 ([facility]) Acetaminophen 325 MG / Hydrocodone [place] trate 5 MG Oral Tablet Hydrocodone- Acetaminophen 5-325 MG Hydrocodone-Acetaminophen 5-325 MG 12/03/2019 12:00:00 AM EDT 1.0 {tablet_as_needed} active Hydrocodone-Acetaminophen 5-325 MG eCW1 ([facility]) Acetaminophen 325 MG / Hydrocodone [place] trate 5 MG Oral Tablet Hydrocodone- Acetaminophen 5-325 MG Hydrocodone-Acetaminophen 5-325 MG 12/03/2019 12:00:00 AM EDT 1.0 {tablet_as_needed} active Hydrocodone-Acetaminophen 5-325 MG eCW1 ([facility]) Acetaminophen 325 MG / Hydrocodone [place] trate 5 MG Oral Tablet Hydrocodone- Acetaminophen 5-325 MG Hydrocodone-Acetaminophen 5-325 MG 12/03/2019 12:00:00 AM EDT 1.0 {tablet_as_needed} active Hydrocodone-Acetaminophen 5-325 MG eCW1 ([facility]) Acetaminophen 325 MG / Hydrocodone Brielle trate 5 MG Oral Tablet Hydrocodone- Acetaminophen 5-325 MG Hydrocodone-Acetaminophen 5-325 MG 12/03/2019 12:00:00 AM EDT 1.0 {tablet_as_needed} active Hydrocodone-Acetaminophen 5-325 MG eCW1 ([facility]) Acetaminophen 325 MG / Hydrocodone Brielle trate 5 MG Oral Tablet Hydrocodone- Acetaminophen 5-325 MG Hydrocodone-Acetaminophen 5-325 MG 12/03/2019 12:00:00 AM EDT 1.0 {tablet_as_needed} active Hydrocodone-Acetaminophen 5-325 MG eCW1 ([facility]) Acetaminophen 325 MG / Hydrocodone Brielle trate 5 MG Oral Tablet Hydrocodone- Acetaminophen 5-325 MG Hydrocodone-Acetaminophen 5-325 MG 12/03/2019 12:00:00 AM EDT 1.0 {tablet_as_needed} active Hydrocodone-Acetaminophen 5-325 MG eCW1 ([facility]) Acetaminophen 325 MG / Hydrocodone Brielle trate 5 MG Oral Tablet Hydrocodone- Acetaminophen 5-325 MG Hydrocodone-Acetaminophen 5-325 MG 12/03/2019 12:00:00 AM EDT 1.0 {tablet_as_needed} active Hydrocodone-Acetaminophen 5-325 MG eCW1 ([facility]) Acetaminophen 325 MG / Hydrocodone Brielle trate 5 MG Oral Tablet Hydrocodone- Acetaminophen 5-325 MG Hydrocodone-Acetaminophen 5-325 MG 12/03/2019 12:00:00 AM EDT 1.0 {tablet_as_needed} active Hydrocodone-Acetaminophen 5-325 MG eCW1 ([facility]) Acetaminophen 325 MG / Hydrocodone Brielle trate 5 MG Oral Tablet Hydrocodone- Acetaminophen 5-325 MG Hydrocodone-Acetaminophen 5-325 MG 12/03/2019 12:00:00 AM EDT 1.0 {tablet_as_needed} active Hydrocodone-Acetaminophen 5-325 MG eCW1 ([facility]) Acetaminophen 325 MG / Hydrocodone Brielle trate 5 MG Oral Tablet Hydrocodone- Acetaminophen 5-325 MG Hydrocodone-Acetaminophen 5-325 MG 12/03/2019 12:00:00 AM EDT 1.0 {tablet_as_needed} active Hydrocodone-Acetaminophen 5-325 MG eCW1 ([facility]) Acetaminophen 325 MG / Hydrocodone Brielle trate 5 MG Oral Tablet Hydrocodone- Acetaminophen 5-325 MG Hydrocodone-Acetaminophen 5-325 MG 12/03/2019 12:00:00 AM EDT 1.0 {tablet_as_needed} active Hydrocodone-Acetaminophen 5-325 MG eCW1 ([facility]) Acetaminophen 325 MG / Hydrocodone Brielle trate 5 MG Oral Tablet Hydrocodone- Acetaminophen 5-325 MG Hydrocodone-Acetaminophen 5-325 MG 12/03/2019 12:00:00 AM EDT 1.0 {tablet_as_needed} active Hydrocodone-Acetaminophen 5-325 MG eCW1 ([facility]) Acetaminophen 325 MG / Hydrocodone Brielle trate 5 MG Oral Tablet Hydrocodone- Acetaminophen 5-325 MG Hydrocodone-Acetaminophen 5-325 MG 12/03/2019 12:00:00 AM EDT 1.0 {tablet_as_needed} active Hydrocodone-Acetaminophen 5-325 MG eCW1 ([facility]) Acetaminophen 325 MG / Hydrocodone Brielle trate 5 MG Oral Tablet Hydrocodone- Acetaminophen 5-325 MG Hydrocodone-Acetaminophen 5-325 MG 12/03/2019 12:00:00 AM EDT 1.0 {tablet_as_needed} active Hydrocodone-Acetaminophen 5-325 MG eCW1 ([facility]) Acetaminophen 325 MG / Hydrocodone Brielle trate 5 MG Oral Tablet Hydrocodone- Acetaminophen 5-325 MG Hydrocodone-Acetaminophen 5-325 MG 12/03/2019 12:00:00 AM EDT 1.0 {tablet_as_needed} active Hydrocodone-Acetaminophen 5-325 MG eCW1 ([facility]) Acetaminophen 325 MG / Hydrocodone Brielle trate 5 MG Oral Tablet Hydrocodone- Acetaminophen 5-325 MG Hydrocodone-Acetaminophen 5-325 MG 12/03/2019 12:00:00 AM EDT 1.0 {tablet_as_needed} active Hydrocodone-Acetaminophen 5-325 MG eCW1 ([facility]) Acetaminophen 325 MG / Hydrocodone Brielle trate 5 MG Oral Tablet Hydrocodone- Acetaminophen 5-325 MG Hydrocodone-Acetaminophen 5-325 MG 12/03/2019 12:00:00 AM EDT 1.0 {tablet_as_needed} active Hydrocodone-Acetaminophen 5-325 MG eCW1 ([facility]) Acetaminophen 325 MG / Hydrocodone Brielle trate 5 MG Oral Tablet Hydrocodone- Acetaminophen 5-325 MG Hydrocodone-Acetaminophen 5-325 MG 12/03/2019 12:00:00 AM EDT 1.0 {tablet_as_needed} active Hydrocodone-Acetaminophen 5-325 MG eCW1 ([facility]) Acetaminophen 325 MG / Hydrocodone Brielle trate 5 MG Oral Tablet Hydrocodone- Acetaminophen 5-325 MG Hydrocodone-Acetaminophen 5-325 MG 12/03/2019 12:00:00 AM EDT 1.0 {tablet_as_needed} active Hydrocodone-Acetaminophen 5-325 MG eCW1 ([facility]) gabapentin 100 MG Oral Capsule gabapentin (NEURONTIN) 100 MG capsule gabapentin (NEURONTIN) 100 MG capsule 11/19/2019 12:00:00 AM EDT 100 mg Oral active Take 100 mg by mouth 2 (two) times a day [facility] potassium chloride SA (K-DUR,KLOR-CON) 10 MEQ tablet 65291-6 11-2511/19/2019 12:00:00 AM EDT 10 meq Oral aborted Take 10 mEq by mouth 2 (two) times a day [facility] torsemide 20 MG Oral Tablet torsemide (DEMADEX) 20 MG tablet torsemide (DEMADEX) 20 MG tablet 11/19/2019 12:00:00 AM EDT 20 mg abor alfred 20 mg 3 (three) times a day [facility] dapagliflozin 5 MG Oral Tablet [Farxiga] FARXIGA 5 MG TABS F ARXIGA 5 MG TABS 11/10/2019 12:00:00 AM EDT aborted [facility] 24 HR Metformin hydrochloride 500 MG Ext ended Release Oral Tablet metFORMIN (GLUCOPHATE-XR) 500 MG 24 hr tablet metFORMIN (GLUCOPHATE-XR) 500 MG 24 hr tablet 11/02/2019 12:00:00 AM EDT aborted [facility] carvedilol 3.125 MG Oral Tablet carvedilol (COREG) 3.1 25 MG tablet carvedilol (COREG) 3.125 MG tablet 09/23/2019 12:00:00 AM EDT 3.125 mg Oral aborted Coronary artery disease due to calcified coronary lesion Take 1 tablet (3.125 mg total) by mouth 2 (two) times a day [facility] Coronary artery disease due to calcified coronary lesion Nystatin 791822 UNT/ML Oral Suspension n ystatin (MYCOSTATIN) 568305 UNIT/ML suspension nystatin (MYCOSTATIN) 917593 UNIT/ML suspension 2019 12:00:[address] [facility] Losartan Potassium 100 MG Oral Tablet losartan (COZAAR ) 100 MG tablet losartan (COZAAR) 100 MG tablet 12/10/2018 12:00:00 AM EDT 0.75 {tbl} Oral aborted Take 0.75 tablets by mouth once daily [facility] dapagliflozin 10 MG Oral Tablet [Farxiga] FARXIGA 10 MG TABS FARXIGA 10 MG TABS 10/31/2018 12:00:00 AM EDT 0.5 {tbl} Oral aborted Take 0.5 tablets by mouth once daily [facility] Furosemide 20 MG Oral Tablet furosemide (LASIX) 20 MG tablet furosemide (LASIX) 20 MG tablet 06/04/2018 12:00:00 AM EDT 1 {tbl} Oral abor alfred Take 1 tablet by mouth once daily [facility] 3 ML Insulin Glargine 100 UNT/ML Pen Inj jennifer Insulin Glargine (LANTUS SOLOSTAR) 100 UNIT/ML SOPN Insulin Glargine (LANTUS SOLOSTAR) 100 UNIT/ML SOPN 12:00:00 AM EDT 25 U Subcutaneous aborted Inject 25 Units under the skin daily [facility] [place]-3 Acid Ethyl Esters (ASSISTED) 1000 MG Oral Capsule omega-3 acid ethyl esters (LOVAZA) 1 g capsule omega-3 acid ethyl esters (LOVAZA) 1 g capsule 011 12:00:00 AM EDT Oral aborted Take by mouth [facility] Insurance Providers Payer name Policy type / Coverage type Policy ID Covered libertarian ID Covered libertarian's relationship to kathleen Policy Kathleen Plan Information [employer] [place] [id number] 2 [id number] [employer] [place] [id number] [employer] [place] [id number] [facility] Medigap Part B [id number] Self MEDICAID [id number] SP [id number] Medicaid CT Medigap Part B [id number] Self [facility] U [id number] Self [id number] [facility] [id number] SP [id number] [facility] [id number] SP [id number] MEDICARE BLUE PPO 306 [id number] SP [id number] MEDICARE COMPLETE [id number] SP [id number] Blue Shield [facility] Advantage Medigap Part B [id number] Self MEDICARE COMPLETE [id number] SP [id number] MEDICARE COMPLETE [id number] SP [id number] [facility] [id number] SP [id number] MEDICARE [id number] [place] [id number] [employer] MEDICARE BLUE PPO G [id number] Self [id number] [facility] ([facility]) Commercial [id number] Self Medicare S [id number] S [id number] A Managed Care - Community Plan [facility] P [id number] S [id number] Unitedhealthcare Secure Horizons P [id number] S [id number] Medicare S [id number] S [id number] A [employer]iz[employer] P [id number] S [id number] MEDICARE COMPLETE [id number] SP [id number] MEDICARE COMPLETE [id number] SP [id number] [employer]'s Options Commercial [id number] Self [id number] TODA[employer] OPTIONS [id number] SP [id number] [employer] Commercial [id number] .[id number] 0701.0 Self [id number] [facility] Options Medigap Part B [id number] Self 3 [id number] [employer] Commercial [id number] .1.127106.3.227.99.991.9 0701.0 Self [id number] [employer] Commercial [id number] .[id number] 0701.0 Self [id number] [facility] Options Medigap Part B [id number] .[id number] Self 3 [id number] [employer] Commercial [id number]9.991.9 0701.0 Self [id number] [facility] Options [facility] Part B [id number] Self 3 [id number] [employer] Commercial [id number]9.991.9 0701.0 Self [id number] [employer] Commercial [id number] 2.16.840.1.696036.3.227.99.991.9 0701.0 Self [id number] [employer] Commercial [id number]9.991.9 0701.0 Self [id number] [facility] [id number] Self [id number] [facility] [id number] [place] [id number] 2 [employer] [id number] SP [id number] [employer] Commercial [id number] Self [id number] [employer] Commercial [id number] Self [id number] HU[employer]NA MEDICARE [id number] [place] [id number] HUMANA MEDICARE [id number] [place] [id number] HUMANA MEDICARE [id number] [place] [id number] HUMANA MEDICARE [id number] xxxxxxxxx [phone] HUMANA MEDICARE [id number] [place] [id number] AETNA MEDICARE Medicare [id number] AETNA MEDICARE [id number] [place] [id number] ANSI-Not a Secondary Insurance [id number] ANSI-Commercial [id number]-hhk3-6p18-[id number] 4284co5p-avm3-1b14-e1f2-7j054o90e5c9 ANSI-Commercial 3132pgg5-dsbg-48qt-49p3-634qk4653vj1 2937xoo4-enlf-91qq-[id number] [employer] Gold/Medicare Commercial [id number] Self [id number] ANSI-Commercial [id number]62q vj5j5525-58k0-54q2-90y0-7va113t3f92z ANSI-Medicare Part B [id number]-24g4-koo7-[id number] ANSI-Not a Secondary Insurance [id number] [id number] ANSI-Health Maintenance Organization (HM O) [id number] [id number]-3e71-03pz-418g-4988s429j40t ANSI-Medicare Part B [id number]-e18a-545e-a69v-[id number] ANSI-Commercial 389229e6-9675-7389-m4d2-9itzo10e0894 784215w6-5113-2794-y1a3-0qdeb19z3018 ANSI-Medicare Part B [id number]-[id number] 3ym5umzs-kc4t-2r94-95q7-7gm7w34786t8 ANSI-Medicare Part B [id number] 8q0232l2-384u-7k8y-ky00-2kf6s3016j25 ANSI-Health Maintenance Organization ( O) uu39j9ii-565y-7524-s092-5hf27ytn0n79 bn99t0pt-601y-7138-k024-8xm55oqs0o45 ANSI-Commercial 688op407-778l-[id number] 473wg879-485w-4w02-9270-811a5s107970 [facility]-Health Maintenance Organization ( O) 08vux0r1-25o8-9g69-35q0-b5b24n7pj336 61bgd7h5-17z7-4r87-06a2-c2o62a4uh339 ANSI-Medicare Part B [id number]-yl3lbby5h3x3 5m09y528-x010-0217-ie69-ht4exfi6u9w3 ANSI-Medicare Part B [id number]-[id number] 8c2ds127-ul5f-9igh-4831-4si038104991 ANSI-Medicare Part B [id number]-47o9-b275-3h74973n7y0l 077pbf12-707w-55j8-v389-1f01691d9y8t ANSI-Commercial 408rv51d-8194-5928-54ov-7741420a9626 713fl84j-1782-8235-31an-5310877u4598 [facility] ( [facility]) [id number]-r6rn-xhm09af69037 i3791101-9756-47n6-z5ja-xiq21jt43591 ANSI-Medicare Part B [id number]-p30w-780ti5i3ao0a 1f6759k0-4jx2-4195-p18i-362cp9m9jl4m ANSI-Commercial 14h8773o-aywn-9360-f29p-66059pw303x5 86o7187j-hlds-2834-u08j-66080ib949d6 ANSI-Medicare Part B [id number]-967v-9yy3-966k65469cl0 7kd28r45-099x-036r-7ba0-158b57849dg8 ANSI-Health Maintenance Organization ( O) 84937g34-n311-4erx-g64u-7j05yjaw3416 18584h25-g737-4nci-e83d-2c41vjxc4495 ANSI-Medicare Part B 81vsmar3-i5s4-86w7-36wn-erx462w8l5c7 81jmysf7-u9g8-55w5-54tk-abc174z9g7s5 ANSI-Commercial nx3s0d9w-bp64-6260-31nm-ict7n7765959 gd9u5y0o-jy07-5100-53cm-daq0z0046051 ANSI-Medicare Part B [id number]-0zl5t6714kf3 j201h5z2-0514-1mm0-26ry-0tq6l9192om0 [facility] ( O) 741776h6-n87n-3q63-p7z8-035p67065j40 960934u8-e23i-8q28-e3z8-291i91788r78 ANSI-Medicare Part B [id number] u74l96ct-6p29-1374-98xc-5bcz2owtq025 ANSI-Medicare Part B [id number]-57lm-26j0-2jzw72a2qzrd 58p0708w-4k8s-46ib-12o7-9fvb83n0ekzt [facility] ( O) [id number]-9y88-4q20-313m724465j6 4c5j2627-7c2z-2e53-6p21-740x721368i3 ANSI-Medicare Part B [id number]-8ac5-7wou41j90353 ch22479c-7673-81wq-6qd1-6hmd67p24260 ANSI-Commercial 4fj79c20-dyym-1i50-5010-27jx0876akjr 9gd93z70-xdsi-7f64-0175-30tc4796lnwm ANSI-Health Maintenance Organization ( O) pp18318m-01w9-209v-y815-1j4e99apow86 hx48918a-55i6-984z-t691-1s9q86ynlf73 ANSI-Medicare Part B [id number]-6px3-6j10-4em622p19u64 32s7870y-r9zl-7nc6-3n19-7oh672d44t70 ANSI-Medicare Part B 63yil763-16z7-6h7j-4614-727p67v8w507 84jgs067-80v0-3r3r-8796-077t03k3h398 ANSI-Commercial 32u458p1-66n0-3a6y-a495-5d079964h644 53t043o6-73r8-1l3s-d509-7s987085o742 ANSI-Medicare Part B [id number]-227w-4j80-f4x4q2c3761i a17g925j-35nb-866x-8q81-a4s7g9o7897c ANSI-Medicare Part B 28jdj9dx-7691-2449-r5y4-nba87h9av3z6 80dhw6kp-3163-6850-z0h7-jsu27u2he7s6 ANSI-Commercial hs282vel-90p3-11z9-jf69-cg4h8cx66a83 yi643ire-10m6-54a4-ay01-fp3c5sw48b09 ANSI-Health Maintenance Organization ( O) 378695fe-3a7w-25f8-dt62-78730c855105 042317mf-9b8r-65z9-re15-95783c140708 [employer] Commercial [id number]9.8646.50535.0 Self [id number] [employer] OPTIONS [id number] ANSI-Medicare Part B [id number]-r221-7l4207t89959 07212dq8-o345-7p3d-w937-3i1229f83875 ANSI-Commercial f6n9k501-ilkl-9989-q6cr-jl1a4rr9r189 q1h2n589-irpq-1998-k0nf-lg2w3ds6q489 ANSI-Medicare Part B 67nz2if5-7bm2-6wcp-o9kv-jhwg4yl6y463 87em9zz2-2cv8-5uhn-h0tt-azax4sv9t606 ANSI-Health Maintenance Organization ( O) 03909m89-7j10-2z39-9u6w-3627jlrof348 87312z40-2d59-6t65-6v8c-0842ihnje653 ANSI-Medicare Part B [id number]-yv7i8684781y 375a6444-5o28-2955-44ww-lf9a9867380z ANSI-Health Maintenance Organization ( O) 0t7x7787-h037-663j-x404-3tw3459anjzx 0t0i3151-g593-689e-u273-7nr7334wjgke ANSI-Commercial 9a571f99-4787-07ic-19l8-qb71rdzt8i67 7r111z99-9201-37zc-74s9-en05hejh5b56 ANSI-Medicare Part B [id number]-48s239ytl4x4 o8qg9383-79o2-9d55-564q-64q331pua9n7 ANSI-Medicare Part B [id number]-p85t-9suxp1196vlu 99739o56-50g2-3zym-y16q-3biom1398goq [facility] ( O) 42p86o4h-818j-34t8-6548-2a1n3865lv06 18h07g1w-056g-42b2-2980-8o2s6997ak73 ANSI-Medicare Part B [id number]-64u0-4oi9-xwb4-428j412h481b 913d683k-15w8-6xt0-exv1-626s576d013k ANSI-Commercial k5296r72-848n-2l6i-kx35-b7o56833vvh1 u9861g43-309d-9n9z-kv01-p6c59907axy0 ANSI-Medicare Part B 813t6kgg-g3cd-8959-292r-eh9t855b9znq 500h7wtt-b1zf-3708-510a-no3i248z4how [facility] ( O) vr5w8bz8-da83-0b94-s6m3-z2146c40x4a3 tc4b1fs5-of89-3t38-u9a4-x9273o26x7k1 [facility] 5ww6tdn6-jv38-3p89-h57o-op4i9x63thdl 3zz3zct0-xu38-2g16-y75n-fj0m2e86btqn ANSI-Commercial 17gv9l2w-1o4n-8127-qa44-051u6r56q182 15fj4v7w-4m4q-1027-uu18-097x0o98c272 ANSI-Medicare Part B [id number]-10g23nb5z070 02y1517f-4177-2hv7-226l-35d54ux9y650 ANSI-Commercial 67s5w73c-g05w-1sdl-07i1-9492q8618mjl 80g9l88z-f76h-9wyh-54o0-0792z0789qwz ANSI-Medicare Part B 32154r95-v532-35vq-ry26-6cr38b3b7771 03815i74-z635-41ai-jo61-2gh53h3k5650 [facility]-Health Maintenance Organization ( O) sg1vps99-15op-6u11-z2wc-m8tq4z22h7sw jm8xic53-94kl-4l97-n6gv-j6iq0o68v5oq ANSI-Commercial 8vt68tx5-9945-53k3-8m62-l5s1u9d98n0f 9zs31by7-6698-21f5-3t02-v9y4u5n07n9c ANSI-Medicare Part B h251zz5t-5537-4q00-7969-zk4w6e7sey7s c500bt3y-3232-2m56-8318-gy5p7w4mgb7k [facility]-Health Maintenance Organization ( O) 73l89kn4-7021-75l0-m4qe-a17v93904e17 64q32jj8-0787-67a5-h1je-h19e39709a96 ANSI-Medicare Part B 80c530jr-9ik5-4667-643s-1f894u3sw4b0 42g238au-0vh8-9893-095z-9s998w3fs3c5 [employer] [facility] Commercial [id number]9.8646.17315.0 [facility] [id number] ANSI-Medicare Part B 0e5qlft2-sx36-54xt-3878-g43mkq97o9d5 5u7bsfh9-lf30-02px-5220-b33lkv35x5h5 [facility]-Health Maintenance Organization ( O) 86k138wa-r4h1-43jt-x55m-n4htc58r667f 23d706my-g7o3-60al-k30x-d5xpb08j753s ANSI-Medicare Part B [id number]-2188-48e8-2362xgi7tl6r 9gt88796-6i3c-3401-81z0-8510dry1ls2s ANSI-Commercial 88gj4108-6386-445l-1ow1-e2729cez9e33 50oy0635-3839-209n-4ic2-j1912zsi9d28 ANSI-Medicare Part B q409g9uq-d587-2ox2-2409-710892719m0c l031l2so-y446-1ch4-4880-610761676f7a ANSI-Medicare Part B [id number]526hb80xt0f 60954377-9x75-8602-0977-6746xe80xb0j ANSI-Commercial 562ys7y2-58q7-7p8w-5r22-2ca584w26r0x 307qf9h7-33k0-5y6u-8c51-9sa182p91r9t ANSI-Health Maintenance Organization ( O) 9177sj37-w1e1-4744-77u1-st601x3v2535 4281nm13-o4w4-7104-04u0-zs652b0j4280 ANSI-Health Maintenance Organization ( O) f334a01n-8649-496v-8352-nc4j90018cmo u426w38h-4756-832u-7589-bv6m93594sms ANSI-Commercial t99n3651-8750-89eo-j251-615za74a61p9 p79t2816-7382-32ay-v495-892ap19m87e0 ANSI-Medicare Part B [id number]-v92i-038s-3bd3-c8u17j4vvag7 128v122o-o60l-491b-1tc9-u8j71h2ufyr0 ANSI-Medicare Part B 292yi15j-k53m-5e20-i26d-g54249nt9lj2 983ax75l-a86v-0c59-x48r-k56456tj3kk0 [employer] [id number] 9568.0 Self [id number] [facility] O [id number] S [id number] ANSI-Health Maintenance Organization ( O) 24743601-14d9-3t7w-176l-b5x95451uei0 50003958-87y6-3h6h-710b-v4d04566rbl9 ANSI-Commercial k8n7839m-9e1q-6396-x2ph-1dv9484j5uu0 h7z6422q-4m3o-0340-v3wc-7kk5563q4rv5 ANSI-Medicare Part B e6vr288b-l840-652k-77y0-76ji96704d90 v8jo955a-a658-777j-89l3-86le06255s46 ANSI-Medicare Part B 1k8h14kd-t7y1-2k37-m25c-q6qbvc31ml7s 6t7t71pk-g5z6-7n90-g36f-j2mnkn35np3b ANSI-Commercial 212w22xx-9nv1-787h-8917-47t0811we56v 624m49he-2tw8-978t-4196-13u3481kb03a ANSI-Medicare Part B li57287y-u2cg-381l-c352-519c47bi3g9k zh51819p-g9tu-010c-q104-052c96sl3b7v ANSI-Medicare Part B 955r1t20-382u-6pdv-3do7-9m15fzwoq8or 709v2e84-093m-7mtv-8xk3-5v15muglk5oo ANSI-Health Maintenance Organization ( O) c7h0416h-4ymn-7t16-y63p-45896a30132o h0c0168w-0tvh-7s64-k50j-67140x26573o ANSI-Medicare Part B o5254597-pmom-7655-455u-2qma75006916 o4433176-aocv-8911-239s-5gwu75647858 ANSI-Commercial 322611x5-255w-2406-zz3z-64406s2m03er 745223w6-926a-3954-rg6i-69878r4i43fp ANS-Health Maintenance Organization ( O) 266y8277-5249-8q46-a8z3-tdb2k722366y 142w6443-4486-6z79-g9e1-urm5e699527k ANSI-Medicare Part B 715w973k-c018-583v-t649-oj9208g4988b 322f019a-j889-020p-j681-cz5138f3987o ANSI-Medicare Part B v54p1w93-e909-75y2-ae6x-0377030j4w6z i92s6d21-d204-61t8-ss6u-8863514u0d5l ANSI-Medicare Part B 5459nb0f-387u-1z39-8id9-0a898560v3y9 1543aj9p-753y-2s77-7bj5-7x406736x3m1 ANSI-Commercial 87z90475-u4hg-3798-9508-rnx1346408g7 79p22032-s2uy-1560-8898-ypt9366267u1 ANSI-Medicare Part B 9a5h1ql6-d85i-81t6-5q9v-37v13b5mj3v1 6l4b2sr4-u13x-39z3-5g6a-00a30i9hm3a1 ANSI-Medicare Part B a58xvzy0-iogv-709f-w63k-3b57770g3t0f i31kydz5-nkwf-083w-v33g-6c95949x0i2b ANSI-Commercial 63kusg1i-96q3-98ty-p628-p0c769832863 08pzdb4k-16b3-79dl-t115-j1m614618737 ANSI-Medicare Part B 0rr41smh-8fy2-10dy-p8q3-97nhpx95vn71 1jq55owq-8go7-16wo-a1i6-22yztf89fx15 ANSI-Medicare Part B m43y2032-u094-1v5x-vn24-z0843452gzwz k67q4890-m543-7q6g-li73-z0145690qzxd ANSI-Commercial zgb3n8dd-213u-5a76-5h23-d71q6804ave2 ndh5o9lk-606c-4o34-7q12-c51q9986kkp9 ANSI-Commercial 9gdg6607-u26b-4845-265m-bpy2lu3c5645 9hxq2356-q11u-4541-912h-whi0iu3a2384 ANSI-Medicare Part B 9y87yrfg-7786-55xx-8tp6-w89v75fm399q 8f59ubrz-8760-61ms-1rb3-k31v38mj921r ANSI-Medicare Part B 7729do2k-2b07-0x13-6p11-27375s4v60wp 8860cd2t-1e63-9p70-4k70-13055c6a62ib ANSI-Medicare Part B 8rik0sw6-0g0o-1705-05x1-lf3q4a8i8289 9gwv3hb2-7z9a-8949-55d9-hg6c2r4p2000 ANSI-Commercial h5a48e81-9m3y-21m8-1508-5k0z7705859p a2h93l18-9y0h-72v1-5781-1u5r7822942l ANSI-Medicare Part B 9r4o3gp1-7296-71f4-rrr0-355i400a3n3r 8p4e1xu6-6360-72t4-jzk3-313a355h4x9g [employer] O [id number] S [id number] ANSI-Medicare Part B 7052tn8c-3718-275l-vw98-3134r9545t76 3165if1h-1657-617p-dy53-0189y4611i10 ANSI-Medicare Part B 2b1c9930-6616-7752-0yg2-087x74844072 3t0y2747-7055-5679-6bp0-402q32851519 ANSI-Commercial 7ravg2n6-9zpg-4a6q-d440-x44s61g9d4gi 5eyap8g4-7cxg-1j7d-z583-e79t06p9b9qg ANSI-Medicare Part B 93t4kv6h-5anw-2962-qzf1-ouhhr80v30vk 48l7wk6f-5vpr-5371-xja7-dhplb01u95tx ANSI-Commercial oj019555-2h1m-075b-733u-f0t1549n56i1 ed028116-3r2g-138x-762m-b8b3645p65t6 ANSI-Medicare Part B 4b74rr4k-bxz1-011k-a97k-4gd5g4gx633m 6m15me4z-hhy9-091n-s24z-5kf9a8od180n ANSI-Medicare Part B 00z33s20-3a5l-897l-m304-t149q77k3818 63k47t02-4e3q-749v-w501-h434l65n9490 ANSI-Commercial 7846rh00-9ea5-9a8r-774n-34a289a17dx8 9527xd91-2ll3-2a1v-197j-86q071x88ry2 ANSI-Medicare Part B z8x67k0g-g6gi-3x02-ot79-985ve5t00hv3 m4e84e5w-e1co-8m94-ua03-282jx6l13lv5 ANSI-Commercial 4481rfi2-l9up-1mq7-p8l8-ujef57u83808 1452zjm4-b4mz-8hu8-k1i7-giwj99y38134 ANSI-Medicare Part B k0i802w1-55f2-3593-7490-8916115421i2 u9v265m8-31z7-0265-5277-5121925965v7 ANSI-Medicare Part B 98z3m383-11vi-706z-4em4-l453140hmh3t 32y2l730-83gr-365j-3fl3-u782735dtx8a ANSI-Medicare Part B 922n54cx-7auv-52z1-713v-68095q503hq7 259t77tb-8eae-28r4-381z-19722i562tt5 ANSI-Commercial 1t9129v8-3307-97ms-z474-c6oqt018173r 7u1981l9-6619-47op-r463-o7gvh419900h ANSI-Medicare Part B 9999em17-0p10-3u45-6e7d-1549y0741979 7867ly31-2f78-1p40-6k1f-9917x2482454 ANSI-Medicare Part B 6v591153-1t2f-81c3-3320-78875dtu61j0 8m323082-7c2n-76q2-7137-96396dwu51w6 ANSI-Medicare Part B 285s9s9t-2522-0806-p813-30qp8e648w0i 384q7h7n-0077-0969-w765-91bj0c492j1l ANSI-Commercial o15mp6s7-68o5-0exg-d9e3-059bk152weqi y17fr2a3-60k7-0kca-v8u5-358ie135eyxo ANSI-Medicare Part B 72or78ly-m08w-179f-o0j4-nj46r3x7ag32 07tb79yn-h34x-690s-v8b1-yn31m4u7aw60 ANSI-Medicare Part B 39u8y4x4-i6at-44cw-3u21-5x0040b970eo 86b2a0z6-l0wn-72ni-5d54-0f5747p366dr ANSI-Commercial 7lg875o6-s53g-92q4-8ikz-x65aq3129y95 0lf568d1-u34r-85x4-7rqs-q78yo0402p93 ANSI-Commercial 69381imt-7l1v-1m3x-0631-3r34i68m7230 47832auy-9q1p-8r5a-8038-9i34y80x4819 ANSI-Medicare Part B 4op21807-68fn-73q1-b7d4-h55239169s44 5qd41659-45rf-27i8-a5m8-v18981017n50 ANSI-Medicare Part B b2ke723j-4c67-145p-29e4-3713d6g269x6 p8hj727x-1w14-836z-10b6-2971t1n927n7 ANSI-Medicare Part B w24fr40p-04i6-1m8n-jk81-226o22260nez z12jn89u-85b8-5i4p-yb79-327c20972kfz ANSI-Medicare Part B 39z77622-np8h-7468-l19h-8635l4869i09 65r34237-dt1h-9012-t05l-7446z6580p90 ANSI-Commercial r1591765-q02l-0779-1udh-0h8k41sg5390 u6127922-c20c-4865-3koc-5c3n14ly3574 ANSI-Commercial hb7h2r17-plx3-3uqv-s564-y51242c93199 np0v9n71-iva1-8nir-b844-h98577g13079 ANSI-Medicare Part B 4wz0s574-43ym-32n1-342t-3e771et9zy83 1fd8o839-99fj-37m3-435l-0y108sj6as11 ANSI-Medicare Part B 7ji7yn28-3iu4-6179-7413-irsd11h45r7u 7az3le45-7xu0-4228-7271-csbn49b73s0n ANSI-Medicare Part B [id number]-471r-677n-311p-349v125v0om3 449n116l-970x-751f-321v-663q613g3oz2 ANSI-Commercial [id number]-5r7p-0930-47j8086t14vf q2v42941-63qh-5s9l-7654-17h2791n86uk ANSI-Medicare Part B [id number] i21v0e8[id number] ANSI-Medicare Part B [id number]-[id number] [id number]-r601-8ql6-a132-88qly960uyk3 ANSI-Commercial 3xh1rhtl-2s30-91i5-w91m-u6f1riz752e4 6zm7lzcm-9k99-33r8-n33n-h3o8mgn447c3 ANSI-Medicare Part B [id number]-686a-g6sq-121623v6d73v 8q685ucg-xs9y-202j-h0fa-303305c8q25j ANSI-Medicare Part B [id number]-88w3-l6m8-93k4y436hhg4 [id number]-71x9-p6e5-57q4r085hky5 ANSI-Medicare Part B [id number]-u6v5-h1dnexvtl76a [id number]-h7y4-y7rmmfxid47k ANSI-Commercial 6ng7k7rs-h6n3-0k21-zyxv-p2b5faj62q90 9zp3x3is-r8l0-9w92-wxnk-w8o5msw99p51 ANSI-Medicare Part B [id number]-3p6u-o6vj-68bo95128e7j 294e914l-x58x-7l4m-w5gl-66sx20357y8s ANSI-Medicare Part B [id number]-8kg5-9880-d0w168k4w725 949h5sn7-5x1l-4op6-8693-r0r855m3t098 ANSI-Commercial i627091c-05l4-141x-g6w0-60j68a33us73 a053158m-62l1-687m-z6e8-51m21m63xf03 ANSI-Medicare Part B [id number]-3op4-p7xk1233k891 [id number]-vt84-2o8g-4id5-g4bv9642w894 ANSI-Commercial a310hj9f-pm1b-45o8-3f8x-823b83h187u0 o799ex9j-ir3y-79v7-8t0l-014j35a992x8 ANSI-Medicare Part B [id number]-16on-c773-26982gmr399x xad997uj-0c0j-13aw-z600-66124qvd797k ANSI-Medicare Part B [id number]-6fd1-m1fq-5x7p961b2801 g22ly297-enzr-8pt2-z8vs-2l4d775z2484 ANSI-Medicare Part B 91pip77n-s7zj-6812-va11-47401pbngv80 33hvl14b-n2xd-4270-mq93-88565swpqc88 ANSI-Commercial 061137a8-g201-3111-r478-1c7wq509q9j0 387742l2-c472-9019-j830-9d3jd414a3s8 ANSI-Medicare Part B 5qyv613m-197g-61rl-0535-32f31s89f67g 3hfx891e-040m-06zr-4821-26w84t51r81s ANSI-Commercial u6d15u46-1630-512f-xd1j-f000158u8w5t r6v79k66-2457-129z-nx6t-e578477w1n0c ANSI-Medicare Part B ghns2f89-h9rs-43r1-pohe-09kilkwyfxl5 quiq8k26-u4tn-24j9-bjii-33hetrxdael6 ANSI-Medicare Part B [id number]-05f3-664d-c6079g099m07 c08j14kp-80fr-08i5-225q-c2410i960m71 ANSI-Commercial aao0n1l3-8t9o-97c7-j92q-0ujqm7a21016 pad8c2s4-7f1p-68v5-p40z-6piwp9d94089 ANSI-Medicare Part B w4fc60z8-84q5-15cq-4t18-75446qus2508 e9um15a0-48x4-93kj-0o16-88067cfv4654 ANSI-Commercial c78649u5-924d-8373-j017-468884527195 t83970h4-460r-2467-w496-088359315294 ANSI-Medicare Part B [id number]-9449-0x12-4319-7t74v8p3uq98 q9fd7tdr-1840-7c21-3870-9y17i1d1ha51 ANSI-Medicare Part B [id number]-af5k39f3790s m2n448i6-9kb5-0575-6943-pp9y68j8923g ANSI-Medicare Part B 50a8a885-9h61-2tl4-1935-9e2c4taxbdg2 51l6d649-4k76-3zg3-5054-0k2s7fvouxt9 ANSI-Medicare Part B 0364r6h6-5303-3068-5qfs-b9bz525nku09 4431r0f2-3621-2687-8lzc-n2vi793gdn99 ANSI-Commercial 3931ww18-w17t-18y4-7320-seh166qr8257 8864ot79-b32h-32m9-0659-ork661iu6681 ANSI-Commercial y8322s9b-3l9d-7351-n488-5gq596w0r810 m0959l8t-7q9k-3107-b050-9pj985x3h983 ANSI-Medicare Part B [id number]-n34b523v2pb4 km6f2506-6744-1024-64x3-l51i717n9ui5 ANSI-Medicare Part B 08wx1c24-u2s2-67e4-s999-6547tsb98tpm 65cc1q89-x4h4-96c6-n733-0762kzu33yxj ANSI-Commercial b1ou45q1-51c3-0510-o033-e127j1y8837i u8ip93b4-46r6-1321-e558-f647m0q9184g ANSI-Medicare Part B ki07ql64-rg19-3365-bf72-95ow187243r1 dz14uk79-ei93-8021-ca21-30ja400161k6 ANSI-Medicare Part B 39t2t635-v55n-2490-427x-h8t4u01j3udj 64y7x293-x62m-8170-200k-t8f8e61l9ozp MEDICARE [id number] A ANSI-Medicare Part B ciq98d87-330y-9439-6u73-032282x9ln2c ses70d47-327d-4781-3w70-523550j8xs8j ANSI-Commercial 0p1rvc82-1jjk-1a3t-w1c4-6e1nf09237fi 7k2ibj41-1tqy-7a7d-b7d5-8a0nx59767nh ANSI-Medicare Part B [id number]-67ep6ba95kf6 83r25034-8m77-95p6-2rbz-77iz0os70ra1 ANSI-Medicare Part B 59665np9-8803-8349-h66u-3a72o92no468 53655jl9-5878-2170-u93o-9p79d02hr249 ANSI-Medicare Part B 477761nw-340n-35a6-075w-51yydp447773 139831cc-084o-21z1-237f-46yayi614178 ANSI-Commercial b57rq412-9fr7-3o71-pe14-w515470rqde2 l94im170-8br9-3e89-st28-x526269tajh3 ANSI-Commercial i7xc1345-09ve-62w6-7851-u8zwa2f54319 h3er5006-16fg-56y1-3560-t8egn3n45687 ANSI-Medicare Part B l163k162-5fpm-901i-2x9o-c5lb060ji0k8 y374t038-7gbo-829e-1y7c-d0uz769gu5a6 ANSI-Medicare Part B [id number]-1w664d9o9ah2 2e123863-f947-2m02-5d7l-5b005t3l5oy5 ANSI-Medicare Part B gj010mf1-2m52-10rh-7s5x-t617m7f0yf7y oa953ny5-4l94-72fg-5x8y-a182v5q4jo5m ANSI-Commercial 3tnx6854-bjx4-2cwp-9jt5-809y5m5mg3ly 9gju9140-ivz1-7kyu-1ay2-009g5o1us8sj ANSI-Medicare Part B 97j2fu90-s4e7-667y-gwz3-yb65119y35m2 96s1cn47-w3o2-346g-hnj0-gw17899d50d6 AARP HE[employer] CARE OPTIONS [id number] SP [id number] A[employer] OPTIONS [id number] SP [id number] [employer] [facility] OPTIONS [id number] SP [id number] AARP O [id number] S [id number] [employer] Options Commercial [id number] 9568.0 Self [id number] AARP O [id number] S [id number] TODAYS OPTION MEDICARE [id number] Mariluz [employer] Commercial [id number] 9568.0 Self [id number] TODA[employer] OPTION MEDICARE PI PI [facility] [facility] [facility] OPTIONS [id number] SP [id number] TODAYS OPTION MEDICARE [id number] Mariluz [id number] [employer] Commercial .[id number] 9568.0 Self [employer] Commercial [id number] 9568.0 Self [employer] Option Commercial [id number] Self TODAYS OPTION CO 18 011 AETNA MEDICARE [id number] SP [id number] MEDICARE COMPLETE-UHC O [id number] S [id number] [facility] Medicare Commercial [id number] Self [id number] [facility] Medicare Commercial [id number] Self [employer] [id number] Self OtherInbox 71999 Self MEDICAID [id number] SP [id number] MEDICAID [id number] SP [id number] SELF PAY UNAVAILABLE SP UNAVAILA BLE MEDICAID [id number] SP [id number] MEDICAID [id number] SP [id number] AARP O [id number] S [id number] MEDICARE COMPLETE-UHC O [id number] S [id number] MEDICARE [id number] SP [id number] A [facility]UE [facility]UE [facility] [id number] 18 [id number] BLUE CROSS BLUE SHIELD-O/P [id number] 18 [id number] MEDICARE BLUE PPO P [id number] S [id number] [facility] [id number] 18 [id number] [facility] Medicare Commercial [id number] Self [id number] AETNA MEDICARE [id number] SP [id number] HUMANA GOLD [id number] SP [id number] MEDICARE [id number] SP [id number] Medicaid [facility] Other 0 [id number] Self 0 Humana Care Plan Other 0 [id number] Self 0 Medicare [place] of [place] Other 0 [id number] Self 0 HUMANA GOLD [id number] SP [id number] AETNA MEDICARE [id number] SP [id number] MEDICARE [id number] SP [id number] HUMANA GOLD [id number] SP [id number] TODAYS OPTIONSDO NOT USE [id number] SP [id number] AARP HEALTH CARE OPTIONS [id number] SP [id number] HUMANA GOLD [id number] SP [id number] HUMANA GOLD O [id number] S [id number] HUMANA GOLD O [id number] S [id number] HUMANA GOLD O [id number] S [id number] HUMANA GOLD [id number] SP [id number] [place] [id number] SP [id number] MEDICAID M [id number] S [id number] Medicare Wrap S [id number] S [id number] TODAYS OPTIONS [id number] SP [id number] WELLCARE [id number] SP [id number] HUMANA PPO [id number] SP [id number] Todays Options Medigap Part B [id number] Self [id number] [employer] MCR Adv Commercial [id number] Self [id number] ANSI-Not a Secondary Insurance [id number]-v94r-4v131 aa8l0f5 lf8ae075-5489-04y5-o75l-8m926fu5u5o0 ANSI-Medicare Part B [id number]-5r92-9302-1e2v-1p2zfxh2w4wt 6y6m9p3c-9k77-5729-5m1a-8s9mvtc0b6dj ANSI-Commercial 44049qz4-p94w-5356-659p-2hu748507x50 49248yy1-w75x-1671-483n-5ah225997x64 ANSI-Health Maintenance Organization ( O) [id number]-ox21-8zov-w3s7-20668o4mf9ub 3512yb46-wv84-5prh-u5e9-87092t4qr2gs ANSI-Commercial 6ib20867-3a4r-3bwu-b402-y77f9pg44iqu [id number]-8etm-j087-i85t5sb28usi ANSI-Medicare Part B [id number]-7k7y-[id number] [id number]-296s-4n7y-[id number] ANSI-Health Maintenance Organization ( O) [id number] ANSI-Medicare Part B [id number]-40h9-9g15-[id number] jj04jj4t-35i8-3h03-ax39-69062t37p120 ANSI-Commercial kwdvq2j0-9y44-6c53-n2d7-6w84137d6451 cxrit5w7-8e10-1r03-p5h2-9w29588e4657 ANSI-Medicare Part B [id number]-e5ij-34se-[id number] 0mt6g298-o6yt-81fy-1083-9e87g3231vr2 ANSI-Commercial pv8zo84a-ziq0-4i7k-r756-54v4yt645255 tf2ov26h-iek1-7p0d-r823-89a1ph043684 ANSI-Not a Secondary Insurance [id number]-5578-20k7-gn3h-652uh lamb825 [id number]-9524-89x6-of7n-077rowuxx082 ANSI-Not a Secondary Insurance [id number]-qa695 [id number] 64k84k80-4z03-73c8-0hko-xl4264j411l3 ANSI-Medicare Part B [id number]-l5sh23fq0n36 379wo002-726z-7rr3-5a96-q6oo43kk9b91 ANSI-Medicare Part B [id number]-66yu-[id number] 05t3qx50-v253-60ix-67on-52932v670314 ANSI-Commercial l7xt7bo4-g621-6leh-o98b-io422v8q6316 u5pu6me4-p055-0jux-n65g-lj740p8j6161 ANSI-Health Maintenance Organization ( O) [id number]-2s16-[id number] [id number]-2v75-c76d-9y5m06lg1n89 ANSI-Commercial 501t9h24-h3s1-8878-3og8-9brm1b58wud1 212d1m50-v2c8-6712-5hh7-5swy5a86tnf4 SELF PAY ONLY [id number] SP [id number] HUMANA PPO [id number] SP [id number] WELLCARE [id number] SP [id number] ANSI-Health Maintenance Organization ( O) [id number]-[id number] 793f47rs-85ur-6436-epuq-283y34s705zd ANSI-Medicare Part B [id number]-[id number] 7l5o3w13-3114-84zj-jf89-797j5v4160r4 ANSI-Medicare Part B [id number]-60hj-5522-x395-rts236o88j91 0142alwn-46ua-4991-g462-lfn131u15e40 Problems, Conditions, and Diagnoses Code Display Name Description Problem Type Effective Dates Data Source(s) 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) Iron deficiency anemia secondary to bloo Diagnosis 07/06/2020 09:51:07 AM EDT [facility] I10 Essential (primary) hypertension Essential (primary) h ypertension Diagnosis 07/06/2020 09:51:07 AM EDT [facility] R01.1 Cardiac murmur, unspecified Cardiac murmur, unspecifie d Diagnosis 12/30/2019 08:50:51 AM [facility] R94.31 Abnormal electrocardiogram [ECG] [EKG] A bnormal electrocardiogram (ECG) (EKG) Diagnosis 12/30/2019 08:50:51 AM [facility] K21.9 Gastro-esophageal reflux disease without esophagitis Gastro-esophageal reflux disease without Diagnosis 12/30/2019 08:50:51 AM [facility] M19.90 Unspecified osteoarthritis, unspecified site Unspecified osteoarthritis, unspecified Diagnosis 12/30/2019 08:50:51 AM [facility] E03.9 Hypothyroidism, unspecified Hypothyroidism, unspecifie d Diagnosis 12/30/2019 08:50:51 AM [facility] 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 long-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 (cu rrent) use of insulin Diagnosis 12/30/2019 08:50:51 AM [facility] E11.9 Type 2 diabetes mellitus without complic ations Type 2 diabetes mellitus without complic Diagnosis 12/30/2019 08:50:51 AM [facility] E78.5 Hyperlipidemia, unspecified Hyperlipidemia, unspecifie d Diagnosis 12/30/2019 08:50:51 AM [facility] N18.9 Chronic kidney disease, unspecified Chronic kidn ey disease, unspecified Diagnosis 12/30/2019 08:50:51 AM [facility] 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 Coronary atherosclerosis due to calcifie Diagnosis 12/30/2019 08:50:51 AM [facility] I25.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 Atherosclerotic heart disease of [place] Diagnosis 12/30/2019 08:50:51 AM EST [facility] I50.9 Heart failure, unspecified Heart failure, unspecified Diagnosis 12/30/2019 08:50:51 AM EST [facility] mild to mod cord compression of C5 and C 6 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 Diagnosis 11/13/2019 12:27:00 PM EDT [facility] M54.12 Cervical radiculopathy Cervical radiculopathy Problem 10/19/2020 12:00:00 AM EDT [facility] ([facility] ) M48.02 Spinal stenosis in cervical region Spinal stenos is in cervical region Problem 10/19/2020 12:00:00 AM EDT [facility] ([facility] ) R20.2 [id number] Paresthesia of both hands Problem 10/03/2020 12:00:00 AM EDT eC ([facility]) M43.06 Spondylolysis Spondylolysis Problem 08/09/2020 12:00:00 AM EDT [facility] ([facility]) 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 Problem 08/09/2020 12:00:00 AM EDT [facility] ([facility]) 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 Problem 08/09/2020 12:00:00 AM EDT [facility] ([facility] ) G56.23 Lesion of ulnar nerve Lesion of ulnar nerve Problem 08/09/2020 12:00:00 AM EDT [facility] ([facility]) G25.0 Essential tremor Essential tremor Problem 08/09/2020 12 :00:00 AM EDT [facility] ([facility] ) G25.2 [id number] Intention tremor Problem 07/05/2020 12:00:00 AM EDT eCW ([facility]) R29.6 [id number] Frequent falls Problem 06/13/2020 12:00:00 A M EDT eC ([facility]) R20.2 [id number] Arm paresthesia, right Problem 05/12/2020 12:00:00 AM EDT eCW1 ([facility]) R20.2 [id number] Right leg paresthesias Problem 05/12/2020 12:00:00 AM EDT eCW1 ([facility]) K29.80 71093544 Duodenitis Problem 01/19/2020 12:00:00 AM ES T eCW1 ([facility]) D50.0 478048113 Blood loss anemia Problem 01/19/2020 12:00:0 0 AM EST eCW1 ([facility]) [id number] Essential hypertension Essential hypertension Problem 01/07/2020 12:00:00 AM EST [facility] ([facility]) N18.9 Chronic kidney disease Chronic kidney disease [id number] 12/30/2019 12:00:00 AM EST [facility] I50.32 [id number] Chronic diastolic congestive heart failur e Problem 12/01/2019 12:00:00 AM EDT eCW1 ([facility]) 362.11 Retinopathy Hypertensive Retinopathy Hypertensive Prob juan 04/03/2018 12:00:00 AM EST - 10/05/2020 12:00:00 AM EDT [facility] (Aydin Toribio MD [facility]) 366.16 Age-related nuclear cataract, bilateral Age-related nuclear cataract, bilateral Problem 05/13/2017 12:00:00 AM EDT - 10/05/2020 12:00:00 AM EDT SHANE (Aydin Toribio MD [facility]) Surgeries/Procedures Procedure Description Date Indications Data Source(s) OFFICE OUTPATIENT VISIT 40 MINUTES 10/19/2020 12:00:00 AM EDT [facility] ([facility]) Surgical / procedural history : Cholecys tectomy, Hysterectomy 1989, Right Salivary Gland removed, Fistula removed, 1981, Gallbladder 1982 Surgical / procedural history : Cholecystectomy, Hysterectomy 1989, Right Salivary Gland removed, Fistula removed, 1981, Gallbladder 198210/05/2020 12:00:00 AM EDT SHANE (Aydin mckenna MD [facility]) Extracapsular extraction of lens (procedure) History o f extracapsular cataract extraction PCIOL OD by Dr. Mustafa 12/20/16 ~PCIOL OS by Dr. Mustafa 01/03/17 10/05/2020 12:00:00 AM EDT SHANE (Eric Toribio MD [facility]) OFFICE OUTPATIENT VISIT 15 MINUTES 10/04/2020 12:00:00 AM EDT [facility] ([facility]) ARTHROCENTESIS ASPIR&/INJECTION MAJOR JT/BURSA 021 12:00:00 AM EDT [facility] ([facility]) RADIOLOGIC EXAM KNEE COMPLETE 4/MORE VIEWS 09/21/2020 12:00:00 AM EDT [facility] ([facility]) OFFICE OUTPATIENT VISIT 15 MINUTES 09/21/2020 12:00:00 AM EDT [facility] ([facility]) RADIOLOGIC EXAM KNEE COMPLETE 4/MORE VIEWS 09/21/2020 12:00:00 AM EDT [facility] ([facility]) OFFICE OUTPATIENT VISIT 15 MINUTES 09/20/2020 12:00:00 AM EDT [facility] ([facility]) ARTHROCENTESIS ASPIR&/INJECTION MAJOR JT/BURSA 021 12:00:00 AM EDT [facility] ([facility]) RADEX SPINE LUMBOSACRAL 2/3 VIEWS 08/18/2020 12:00:00 AM EDT [facility] ([facility]) OFFICE OUTPATIENT VISIT 25 MINUTES 08/18/2020 12:00:00 AM EDT [facility] ([facility]) Needle electromyography, each extremity, with related paraspinal areas, when performed, done with nerve conduction, amplitude and latency/velocity study; complete, five or more muscles studied, innervated by three or more nerves or four or more spinal levels (list separately in addition to the code for primary procedure). 08/15/2020 12:00:00 AM EDT MEDEN T ([facility] ) Needle electromyography, each extremity, with related paraspinal areas, when performed, done with nerve conduction, amplitude and latency/velocity study; complete, five or more muscles studied, innervated by three or more nerves or four or more spinal levels (list separately in addition to the code for primary procedure). 08/15/2020 12:00:00 AM EDT MEDEN T ([facility] ) Nerve Conduction 9-10 Studies 08/15/2020 12:00:00 AM E DT [facility] ([facility] ) OFFICE OUTPATIENT NEW 60 MINUTES 08/09/2020 12:00:00 A M EDT [facility] ([facility] ) OFFICE OUTPATIENT VISIT 25 MINUTES 08/01/2020 12:00:00 AM EDT [facility] ([facility] ) RADEX SPINE LUMBOSACRAL 2/3 VIEWS 07/13/2020 12:00:00 AM EDT [facility] ([facility] ) OFFICE OUTPATIENT VISIT 15 MINUTES 07/13/2020 12:00:00 AM EDT [facility] ([facility]) ECG ROUTINE ECG W/LEAST 12 LDS W/I&R <td>POCT AMB EKG</td><td>Routine</td><td>06/08/2020 5:25 PM EDT</td><td> Coronary artery disease due to calcified coronary lesion</td><td> </td> 06/08/2020 09:25:00 PM EDT Coronary artery disease due to calcified coronary lesi on [facility] Coronary artery disease due to calcified coronary lesion OFFICE OUTPATIENT VISIT 40 MINUTES 05/26/2020 12:00:00 AM EDT [facility] ([facility]) OFFICE OUTPATIENT VISIT 10 MINUTES 03/24/2020 12:00:00 AM EST [facility] ([facility] ) Endoscopy Upper GI Complex Diagnostic 02/17/2020 12:00 :00 AM EST [facility] ([facility] ) ARTHROCENTESIS ASPIR&/INJECTION MAJOR JT/BURSA 020 12:00:00 AM EDT [facility] ([facility]) Therapeutic, Prophylactic Or Diagnostic Injection Subq/Im 11/06/2019 12:00:00 AM EDT [facility] ([facility]) Results ID Date Data Source [id number] 12/25/2020 01:58:00 AM EDT [facility] Name Value Range Interpretation Code Description Data Jessica rce(s) Supporting Document(s) SARS coronavirus 2 RNA [Presence] in Res piratory specimen by AVI with probe detection NEGATIVE [facility] This lab was ordered by [facility] a nd reported by [facility]. ID Date Data Source TSH 10/03/2020 12:00:00 AM EDT eCW1 ([facility]) Name Value Range Interpretation Code Description Data Jessica rce(s) Supporting Document(s) 5.420 0.358-3.740 THYROID STIMULATING HORM ONE eCW1 ([facility]) ID Date Data Source Basic Metabolic Profile (BMP) 10/03/2020 12:00:00 AM EDT eCW 1 ([facility]) Name Value Range Interpretation Code Description Data Jessica rce(s) Supporting Document(s) 31 7-18 BLOOD UREA NITROGEN eCW1 ([facility]) 310 70-100 GLUCOSE, FASTING eCW1 ([facility]) 1.11 0.55-1.30 CREATININE FOR GFR eCW1 ([facility]) 52.0 >45 GLOMERULAR FILTRATION RATE eCW 1 ([facility]) 137 136-145 SODIUM LEVEL eCW1 ([facility]) 9.5 8.8-10.2 CALCIUM LEVEL eCW1 ([facility]) 103 98-107 CHLORIDE LEVEL eCW1 ([facility]) 21 21-32 CARBON DIOXIDE LEVEL eCW1 ([facility]) 3.8 3.5-5.1 POTASSIUM SERUM eCW1 ([facility]) ID Date Data Source [id number] 10/03/2020 12:00:00 AM EDT eCW1 ([facility]) Name Value Range Interpretation Code Description Data Jessica rce(s) Supporting Document(s) Hemoglobin A1c/Hemoglobin.total in Blood 11.3 HEMOGLOBIN A1c eCW1 ([facility]) ID Date Data Source [id number] 08/27/2020 09:14:00 PM EDT [facility] Name Value Range Interpretation Code Description Data Jessica rce(s) Supporting Document(s) SARS coronavirus 2 RNA [Presence] in Res piratory specimen by AVI with probe detection NEGATIVE [facility] This lab was ordered by [facility] a nd reported by [facility]. ID Date Data Source [id number] 07/23/2020 07:57:00 AM EDT [facility] FASTING: UNKNOWNReceived: 07/23/2020 at 07:55:00 QPT: [facility], [address], [address] [place], [address], Bridger Mckinley MD Received: 07/23/2020 at 07:55:00 QPT : [facility], [address], [address] [place], [address], Bridger Mckinley MD Name Value Range Interpretation [...] is approximately 13% higher for peopleidentified as -Malian. eGFR NON-AFR. [place] 89 mL/min/1.73m2 > OR = 60 Normal [...] results) [facility] ID Date Data Source [id number] 07/23/2020 07:57:00 AM EDT [facility] FASTING: UNKNOWNReceived: 07/23/2020 at 07:55:00 QPT: [facility], [address], [address] [place], [address], Bridger Mckinley MD Received: 07/23/2020 at 07:55:00 QPT : [facility], [address], [address] [place], [address], Bridger Mckinley MD Name Value Range Interpretation [...] THISIS INCORRECT, PLEASE CONTACT CLIENT SERVICES.PHONE NUMBER: [phone] ID Date Data Source [id number] 05/30/2020 03:59:00 PM EDT [facility] Name Value Range Interpretation Code Description Data Jessica rce(s) Supporting Document(s) SARS coronavirus 2 RNA [Presence] in Res piratory specimen by AVI with probe detection NEGATIVE [facility] This lab was ordered by [facility] a nd reported by [facility]. ID Date Data Source [id number] 05/15/2020 11:00:00 AM EDT [facility] Name Value Range Interpretation Code Description Data Jessica rce(s) Supporting Document(s) SARS coronavirus 2 RNA [Presence] in Res piratory specimen by AVI with probe detection NEGATIVE [facility] This lab was ordered by [facility] a nd reported by [facility]. ID Date Data Source [id number] 05/12/2020 10:00:00 AM EDT [facility] Name Value Range Interpretation Code Description Data Jessica rce(s) Supporting Document(s) SARS coronavirus 2 RNA Not Detected [facility] This lab was ordered by [facility] and reported by [facility]. ID Date Data Source [facility] CT ANGIO CHEST 02/24/2020 12:00:00 AM EST eCW1 ([facility]) Name Value Range Interpretation Code Description Data Jessica rce(s) Supporting Document(s) [facility] CT ANGIO CHEST eCW1 ([facility]) ID Date Data Source [id number] 02/23/2020 12:00:00 AM EST eCW1 ([facility]) Name Value Range Interpretation Code Description Data Jessica rce(s) Supporting Document(s) 1932.80 <500 D-DIMER QUANT eCW1 ([facility]) ID Date Data Source [id number] 02/12/2020 11:00:00 AM EST [facility] Name Value Range Interpretation Code Description Data Jessica rce(s) Supporting Document(s) SARS coronavirus 2 RNA [facility] This lab was ordered by [facility] and reported by [facility]. ID Date Data Source CBC - Complete Blood Count 02/09/2020 12:00:00 AM EST eCW1 ( [facility]) Name Value Range Interpretation Code Description Data Jessica rce(s) Supporting Document(s) 4.96 4.00-5.40 RED BLOOD COUNT eCW1 ([facility]) 11.1 12.0-15.5 HEMOGLOBIN eCW1 ([facility]) 8.6 4.0-10.0 WHITE BLOOD COUNT eCW1 ([facility]) 36.7 36.0-47.0 HEMATOCRIT eCW1 ([facility]) 74.0 80.0-96.0 MEAN CORPUSCULAR VOLUME e CW1 ([facility]) 22.4 27.0-33.0 MEAN CORPUSCULAR HEMOGLOB IN eCW1 ([facility]) 23.9 11.5-14.5 RED CELL DISTRIBUTION WID TH eCW1 ([facility]) 30.2 32.0-36.5 MEAN CORPUSCULAR HGB CONC eCW1 ([facility]) 305 150-450 PLATELET COUNT, AUTOMATED eCW1 ([facility]) ID Date Data Source [id number] 01/31/2020 06:30:00 PM EST [facility] Name Value Range Interpretation Code Description Data Jessica rce(s) Supporting Document(s) SARS coronavirus 2 RNA [Presence] in Res piratory specimen by AVI with probe detection [facility] This lab was ordered by [facility] a nd reported by [facility]. Procedure Social History Code Duration Value Status Description Data Source(s ) Smoking 12/12/2020 12:00:00 AM EDT Former Smoker completed Former Smoker eCW1 ([facility]) Smoking 12/12/2020 12:00:00 AM EDT Former Smoker completed Former Smoker eCW1 ([facility]) Smoking 12/12/2020 12:00:00 AM EDT Former Smoker completed Former Smoker eCW1 ([facility]) Smoking 12/12/2020 12:00:00 AM EDT Former Smoker completed Former Smoker eCW1 ([facility]) Alcohol intake 10/12/2020 12:00:00 AM EDT Current drinker of al cohol (finding) completed Current drinker of alcohol (finding) [facility] Tobacco use and exposure 10/12/2020 12:00:00 AM EDT Never used co mpleted Never used [facility] Smoking 10/12/2020 12:00:00 AM EDT Former smoker completed Former smoker [facility] Smoking 10/11/2020 12:00:00 AM EDT Former Smoker completed Former Smoker eCW1 ([facility]) Smoking 10/11/2020 12:00:00 AM EDT Former Smoker completed Former Smoker eCW1 ([facility]) Smoking 10/11/2020 12:00:00 AM EDT Former Smoker completed Former Smoker eCW1 ([facility]) Smoking 10/05/2020 11:56:16 AM EDT Ex-smoker (finding) complet ed Ex-smoker (finding) SHANE (Aydin Toribio MD [facility]) Smoking 10/03/2020 12:00:00 AM EDT Former Smoker completed Former Smoker eCW1 ([facility]) Smoking 10/03/2020 12:00:00 AM EDT Former Smoker completed Former Smoker eCW1 ([facility]) Smoking 10/03/2020 12:00:00 AM EDT Former Smoker completed Former Smoker eCW1 ([facility]) Smoking 10/03/2020 12:00:00 AM EDT Former Smoker completed Former Smoker eCW1 ([facility]) Alcohol intake 09/09/2020 12:00:00 AM EDT Current drinker of al cohol (finding) completed Current drinker of alcohol (finding) [facility] Smoking 08/22/2020 12:00:00 AM EDT Former Smoker completed Former Smoker eCW1 ([facility]) Smoking 08/22/2020 12:00:00 AM EDT Former Smoker completed Former Smoker eCW1 ([facility]) Smoking 08/22/2020 12:00:00 AM EDT Former Smoker completed Former Smoker eCW1 ([facility]) Smoking 08/22/2020 12:00:00 AM EDT Former Smoker completed Former Smoker eCW1 ([facility]) Smoking 08/22/2020 12:00:00 AM EDT Former Smoker completed Former Smoker eCW1 ([facility]) Smoking 08/22/2020 12:00:00 AM EDT Former Smoker completed Former Smoker eCW1 ([facility]) Smoking 08/22/2020 12:00:00 AM EDT Former Smoker completed Former Smoker eCW1 ([facility]) Smoking 08/22/2020 12:00:00 AM EDT Former Smoker completed Former Smoker eCW1 ([facility]) Smoking 08/22/2020 12:00:00 AM EDT Former Smoker completed Former Smoker eCW1 ([facility]) Smoking 08/02/2020 12:00:00 AM EDT Former Smoker completed Former Smoker eCW1 ([facility]) Smoking 08/02/2020 12:00:00 AM EDT Former Smoker completed Former Smoker eCW1 ([facility]) Smoking 07/20/2020 12:00:00 AM EDT Former Smoker completed Former Smoker eCW1 ([facility]) Smoking 07/20/2020 12:00:00 AM EDT Former Smoker completed Former Smoker eCW1 ([facility]) Smoking 07/20/2020 12:00:00 AM EDT Former Smoker completed Former Smoker eCW1 ([facility]) Alcohol intake 07/06/2020 12:00:00 AM EDT Current drinker of al cohol (finding) completed Current drinker of alcohol (finding) [facility] Smoking 07/05/2020 12:00:00 AM EDT Former Smoker completed Former Smoker eCW1 ([facility]) Smoking 07/05/2020 12:00:00 AM EDT Former Smoker completed Former Smoker eCW1 ([facility]) Smoking 07/05/2020 12:00:00 AM EDT Former Smoker completed Former Smoker eCW1 ([facility]) Smoking 07/05/2020 12:00:00 AM EDT Former Smoker completed Former Smoker eCW1 ([facility]) Smoking 07/05/2020 12:00:00 AM EDT Former Smoker completed Former Smoker eCW1 ([facility]) Smoking 06/13/2020 12:00:00 AM EDT Former Smoker completed Former Smoker eCW1 ([facility]) Smoking 06/13/2020 12:00:00 AM EDT Former Smoker completed Former Smoker eCW1 ([facility]) Smoking 06/13/2020 12:00:00 AM EDT Former Smoker completed Former Smoker eCW1 ([facility]) Smoking 06/13/2020 12:00:00 AM EDT Former Smoker completed Former Smoker eCW1 ([facility]) Alcohol intake 06/08/2020 12:00:00 AM EDT Yes completed [facility] Smoking 06/08/2020 12:00:00 AM EDT Never smoker completed Never s Health system Smoking 05/12/2020 12:00:00 AM EDT Former Smoker completed Former Smoker eCW1 ([facility]) Smoking 05/12/2020 12:00:00 AM EDT Former Smoker completed Former Smoker eCW1 ([facility]) Smoking 05/12/2020 12:00:00 AM EDT Former Smoker completed Former Smoker eCW1 ([facility]) Smoking 05/12/2020 12:00:00 AM EDT Former Smoker completed Former Smoker eCW1 ([facility]) Smoking 05/12/2020 12:00:00 AM EDT Former Smoker completed Former Smoker eCW1 ([facility]) Smoking 05/12/2020 12:00:00 AM EDT Former Smoker completed Former Smoker eCW1 ([facility]) Smoking 05/12/2020 12:00:00 AM EDT Former Smoker completed Former Smoker eCW1 ([facility]) Alcohol intake 04/15/2020 12:00:00 AM EST Yes completed [facility] Smoking 04/15/2020 12:00:00 AM EST [facility]oker [facility] 12:00:00 AM EST Former Smoker completed Former Smoker eCW1 ([facility]) Smoking 04/04/2020 12:00:00 AM EST Former Smoker completed Former Smoker eCW1 ([facility]) Smoking 04/04/2020 12:00:00 AM EST Former Smoker completed Former Smoker eCW1 ([facility]) Smoking 04/04/2020 12:00:00 AM EST Former Smoker completed Former Smoker eCW1 ([facility]) Smoking 04/04/2020 12:00:00 AM EST Former Smoker completed Former Smoker eCW1 ([facility]) Smoking 04/04/2020 12:00:00 AM EST Former Smoker completed Former Smoker eCW1 ([facility]) Smoking 04/04/2020 12:00:00 AM EST Former Smoker completed Former Smoker eCW1 ([facility]) Smoking 04/04/2020 12:00:00 AM EST Former Smoker completed Former Smoker eCW1 ([facility]) Smoking 03/08/2020 12:00:00 AM EST Former Smoker completed Former Smoker eCW1 ([facility]) Smoking 03/08/2020 12:00:00 AM EST Former Smoker completed Former Smoker eCW1 ([facility]) Smoking 03/08/2020 12:00:00 AM EST Former Smoker completed Former Smoker eCW1 ([facility]) Smoking 03/08/2020 12:00:00 AM EST Former Smoker completed Former Smoker eCW1 ([facility]) Smoking 03/08/2020 12:00:00 AM EST Former Smoker completed Former Smoker eCW1 ([facility]) Smoking 03/08/2020 12:00:00 AM EST Former Smoker completed Former Smoker eCW1 ([facility]) Smoking 02/23/2020 12:00:00 AM EST Former Smoker completed Former Smoker eCW1 ([facility]) Smoking 02/23/2020 12:00:00 AM EST Former Smoker completed Former Smoker eCW1 ([facility]) Smoking 02/23/2020 12:00:00 AM EST Former Smoker completed Former Smoker eCW1 ([facility]) Smoking 02/23/2020 12:00:00 AM EST Former Smoker completed Former Smoker eCW1 ([facility]) Smoking 02/23/2020 12:00:00 AM EST Former Smoker completed Former Smoker eCW1 ([facility]) Smoking 02/23/2020 12:00:00 AM EST Former Smoker completed Former Smoker eCW1 ([facility]) Smoking 02/09/2020 12:00:00 AM EST Former Smoker completed Former Smoker eCW1 ([facility]) Smoking 02/09/2020 12:00:00 AM EST Former Smoker completed Former Smoker eCW1 ([facility]) Smoking 02/09/2020 12:00:00 AM EST Former Smoker completed Former Smoker eCW1 ([facility]) Smoking 02/09/2020 12:00:00 AM EST Former Smoker completed Former Smoker eCW1 ([facility]) Smoking 02/09/2020 12:00:00 AM EST Former Smoker completed Former Smoker eCW1 ([facility]) Smoking 02/09/2020 12:00:00 AM EST Former Smoker completed Former Smoker eCW1 ([facility]) Smoking 01/26/2020 12:00:00 AM EST Former Smoker completed Former Smoker eCW1 ([facility]) Smoking 01/26/2020 12:00:00 AM EST Former Smoker completed Former Smoker eCW1 ([facility]) Smoking 01/26/2020 12:00:00 AM EST Former Smoker completed Former Smoker eCW1 ([facility]) Smoking 01/26/2020 12:00:00 AM EST Former Smoker completed Former Smoker eCW1 ([facility]) Smoking 01/26/2020 12:00:00 AM EST Former Smoker completed Former Smoker eCW1 ([facility]) Smoking 01/19/2020 12:00:00 AM EST Former Smoker completed Former Smoker eCW1 ([facility]) Alcohol intake 12/30/2019 12:00:00 AM EST Yes completed [facility] Smoking 12/30/2019 12:00:00 AM EST Never smoker completed Never s moker [facility] Smoking 12/01/2019 12:00:00 AM EDT Former Smoker completed Former Smoker eCW1 ([facility]) Smoking 12/01/2019 12:00:00 AM EDT Former Smoker completed Former Smoker eCW1 ([facility]) Smoking 12/01/2019 12:00:00 AM EDT Former Smoker completed Former Smoker eCW1 ([facility]) Smoking 12/01/2019 12:00:00 AM EDT Former Smoker completed Former Smoker eCW1 ([facility]) Smoking 12/01/2019 12:00:00 AM EDT Former Smoker completed Former Smoker eCW1 ([facility]) Smoking 12/01/2019 12:00:00 AM EDT Former Smoker completed Former Smoker eCW1 ([facility]) Smoking 12/01/2019 12:00:00 AM EDT Former Smoker completed Former Smoker eCW1 ([facility]) Smoking 12/01/2019 12:00:00 AM EDT Former Smoker completed Former Smoker eCW1 ([facility]) Smoking 12/01/2019 12:00:00 AM EDT Former Smoker completed Former Smoker eCW1 ([facility]) Smoking 12/01/2019 12:00:00 AM EDT Former Smoker completed Former Smoker eCW1 ([facility]) Smoking 12/01/2019 12:00:00 AM EDT Former Smoker completed Former Smoker eCW1 ([facility]) Smoking 12/01/2019 12:00:00 AM EDT Former Smoker completed Former Smoker eCW1 ([facility]) Smoking 11/06/2019 12:00:00 AM EDT Patient is a former smoker completed Patient is a former smoker MEDENT ([facility], [facility]) Vital Signs ID Date Data Source UNK Name Value Range Interpretation Code Description Data Source(s) Diastolic blood pressure 70 mm[Hg] 70 mm[Hg] eCW1 ([facility]) Body weight 166 [lb_av] 166 [lb_av] eCW1 ([facility]) Body height 63.5 [in_i] 63.5 [in_i] W1 ([facility]) Body mass index (BMI) [Ratio] 28.94 kg/m2 28.94 kg/m2 eCW1 ([facility]) Heart rate 74 /min 74 /min eCW1 ([facility]) Respiratory rate 18 /min 18 /min eCW1 ([facility]) Body temperature 96.5 [degF] 96.5 [degF] eCW1 ( [facility]) Systolic blood pressure 150 mm[Hg] 150 mm[Hg] e CW1 ([facility]) Systolic blood pressure 130 mm[Hg] 130 mm[Hg] [facility] Diastolic blood pressure 60 mm[Hg] 60 mm[Hg] [facility] Body height 160 cm 160 cm [facility] Heart rate 65 /min 65 /min [facility] Body weight 79.742 kg 79.742 kg [facility] Body mass index (BMI) [Ratio] 31.14 kg/m2 31.14 kg/m2 [facility] Oxygen saturation in Arterial blood by Pulse oximetry 99 % 99 % [facility] Body weight 177.4 [lb_av] 177.4 [lb_av] eCW1 ([facility]) Body weight 80.47 kg 80.47 kg W1 ([facility]) Body height 63.5 [in_i] 63.5 [in_i] W1 ([facility]) Body mass index (BMI) [Ratio] 30.93 kg/m2 30.93 kg/m2 eCW1 ([facility]) Heart rate 83 /min 83 /min eCW1 ([facility]) Respiratory rate 18 /min 18 /min eCW1 ([facility]) Body temperature 96.5 [degF] 96.5 [degF] eCW1 ( [facility]) Systolic blood pressure 160 mm[Hg] 160 mm[Hg] e CW1 ([facility]) Diastolic blood pressure 82 mm[Hg] 82 mm[Hg] eCW1 ([facility]) Systolic blood pressure 167 mm[Hg] 167 mm[Hg] Tomi NICKERSON ([facility]) Diastolic blood pressure 73 mm[Hg] 73 mm[Hg] [facility] Heart rate 83 /min 83 /min [facility] ([facility]) Body temperature 95.2 [degF] 95.2 [degF] [facility] ([facility]) Body height 62 [in_i] 62 [in_i] [facility] 5'2" Body weight 175.00 [lb_av] 175.00 [lb_av] MEDEN T ([facility]) Body mass index (BMI) [Ratio] 32.0 kg/m2 32.0 k g/m2 [facility] ([facility]) [place] body weight 110 [lb_av] 110 [lb_av] MEDEN T ([facility]) Body weight 79.380 kg 79.380 kg [facility] ([facility]) Body surface area Derived from formula 1.81 m2 1.81 m2 [facility] ([facility]) Body weight 175 [lb_av] 175 [lb_av] eCW1 ([facility]) Body height 63.5 [in_i] 63.5 [in_i] eCW1 ([facility]) Body mass index (BMI) [Ratio] 30.51 kg/m2 30.51 kg/m2 W1 ([facility]) Heart rate 72 /min 72 /min eCW1 ([facility]) Respiratory rate 18 /min 18 /min eCW1 ([facility]) Body temperature 96.5 [degF] 96.5 [degF] eCW1 ( [facility]) Systolic blood pressure 120 mm[Hg] 120 mm[Hg] e CW1 ([facility]) Diastolic blood pressure 60 mm[Hg] 60 mm[Hg] eCW1 ([facility]) Body height 62 [in_i] 62 [in_i] [facility] ([facility]) 5'2" Systolic blood pressure 132 mm[Hg] 132 mm[Hg] Tomi NICKERSON ([facility]) Body weight 179.00 [lb_av] 179.00 [lb_av] MEDEN T ([facility]) Body mass index (BMI) [Ratio] 32.7 kg/m2 32.7 k g/m2 [facility] ([facility]) Body surface area Derived from formula 1.82 m2 1.82 m2 [facility] ([facility]) Diastolic blood pressure 70 mm[Hg] 70 mm[Hg] [facility] [place] body weight 110 [lb_av] 110 [lb_av] MEDEN T ([facility]) Body weight 81.194 kg 81.194 kg [facility] ([facility]) Systolic blood pressure 148 mm[Hg] 148 mm[Hg] [facility] Diastolic blood pressure 68 mm[Hg] 68 mm[Hg] [facility] Heart rate 59 /min 59 /min [facility] Body height 160 cm 160 cm [facility] Body weight 81.466 kg 81.466 kg [facility] Body mass index (BMI) [Ratio] 31.81 kg/m2 31.81 kg/m2 [facility] Oxygen saturation in Arterial blood by Pulse oximetry 99 % 99 % [facility] Body temperature 97.7 [degF] 97.7 [degF] W1 ( [facility]) Body mass index (BMI) [Ratio] 31.17 kg/m2 31.17 kg/m2 eCW1 ([facility]) Heart rate 103 /min 103 /min W1 ([facility]) Body weight 178.8 [lb_av] 178.8 [lb_av] eCW1 ([facility]) Body height 63.5 [in_i] 63.5 [in_i] W1 ([facility]) Systolic blood pressure 142 mm[Hg] 142 mm[Hg] e CW1 ([facility]) Diastolic blood pressure 84 mm[Hg] 84 mm[Hg] eCW1 ([facility]) Respiratory rate 18 /min 18 /min eCW1 ([facility]) Body weight 186 [lb_av] 186 [lb_av] eCW1 ([facility]) Body height 63.5 [in_i] 63.5 [in_i] eCW1 ([facility]) Body mass index (BMI) [Ratio] 32.43 kg/m2 32.43 kg/m2 eCW1 ([facility]) Heart rate 77 /min 77 /min eCW1 ([facility]) Respiratory rate 18 /min 18 /min eCW1 ([facility]) Body temperature 96.9 [degF] 96.9 [degF] eCW1 ( [facility]) Systolic blood pressure 142 mm[Hg] 142 mm[Hg] e CW1 ([facility]) Diastolic blood pressure 76 mm[Hg] 76 mm[Hg] eCW1 ([facility]) Body surface area Derived from formula 1.85 m2 1.85 m2 [facility] ) Body weight 185.00 [lb_av] 185.00 [lb_av] MEDEN T ([facility]) Body mass index (BMI) [Ratio] 33.8 kg/m2 33.8 k g/m2 [facility]) [place] body weight 110 [lb_av] 110 [lb_av] MEDEN T ([facility]) Body weight 83.916 kg 83.916 kg [facility] ([facility]) Body height 62 [in_i] 62 [in_i] [facility]) 5'2" Body surface area Derived from formula 1.85 m2 1.85 m2 [facility] ([facility]) Systolic blood pressure 136 mm[Hg] 136 mm[Hg] M [facility]ENT ([facility]) Diastolic blood pressure 70 mm[Hg] 70 mm[Hg] [facility]) Body height 62 [in_i] 62 [in_i] [facility] ([facility]) 5'2" Body weight 185.00 [lb_av] 185.00 [lb_av] MEDEN T ([facility], ) Body mass index (BMI) [Ratio] 33.8 kg/m2 33.8 k g/m2 [facility] ([facility]) [place] body weight 110 [lb_av] 110 [lb_av] MEDEN T ([facility]) Body weight 83.916 kg 83.916 kg [facility] ([facility]) Body weight 183 [lb_av] 183 [lb_av] eCW1 ([facility]) Body height 63.5 [in_i] 63.5 [in_i] eCW1 ([facility]) Body mass index (BMI) [Ratio] 31.91 kg/m2 31.91 kg/m2 [facility] ([facility]) Heart rate 71 /min 71 /min eCW1 ([facility]) Respiratory rate 18 /min 18 /min eCW1 ([facility]) Body temperature 98.3 [degF] 98.3 [degF] eCW1 ( [facility]) Systolic blood pressure 144 mm[Hg] 144 mm[Hg] e CW1 ([facility]) Diastolic blood pressure 62 mm[Hg] 62 mm[Hg] eCW1 ([facility]) Systolic blood pressure 140 mm[Hg] 140 mm[Hg] [facility] Diastolic blood pressure 80 mm[Hg] 80 mm[Hg] [facility] Oxygen saturation in Arterial blood by Pulse oximetry 97 % 97 % [facility] Heart rate 69 /min 69 /min [facility] Body height 160 cm 160 cm [facility] Body weight 87.091 kg 87.091 kg [facility] Body mass index (BMI) [Ratio] 34.01 kg/m2 34.01 kg/m2 [facility] Body weight 192 [lb_av] 192 [lb_av] eCW1 ([facility]) Systolic blood pressure 130 mm[Hg] 130 mm[Hg] e CW1 ([facility]) Diastolic blood pressure 76 mm[Hg] 76 mm[Hg] eCW1 ([facility]) Body height 63.5 [in_i] 63.5 [in_i] eCW1 ([facility]) Body mass index (BMI) [Ratio] 33.47 kg/m2 33.47 kg/m2 eCW1 ([facility]) Heart rate 91 /min 91 /min eCW1 ([facility]) Respiratory rate 18 /min 18 /min eCW1 ([facility]) Body temperature 97.4 [degF] 97.4 [degF] eCW1 ( [facility]) Body weight 189.4 [lb_av] 189.4 [lb_av] eCW1 ([facility]) Body height 63.5 [in_i] 63.5 [in_i] eCW1 ([facility]) Body mass index (BMI) [Ratio] 33.02 kg/m2 33.02 kg/m2 eCW1 ([facility]) Heart rate 73 /min 73 /min eCW1 ([facility]) Respiratory rate 18 /min 18 /min eCW1 ([facility]) Body temperature 97.3 [degF] 97.3 [degF] eCW1 ( [facility]) Systolic blood pressure 124 mm[Hg] 124 mm[Hg] e CW1 ([facility]) Diastolic blood pressure 70 mm[Hg] 70 mm[Hg] eCW1 ([facility]) Diastolic blood pressure 80 mm[Hg] 80 mm[Hg] [facility] Systolic blood pressure 140 mm[Hg] 140 mm[Hg] [facility] Oxygen saturation in Arterial blood by Pulse oximetry 99 % 99 % [facility] Heart rate 65 /min 65 /min [facility] Body height 160 cm 160 cm [facility] Body weight 84.369 kg 84.369 kg [facility] Body mass index (BMI) [Ratio] 32.95 kg/m2 32.95 kg/m2 [facility] Body height 63.5 [in_i] 63.5 [in_i] [facility] ([facility]) 5'3.50" Body weight 190.00 [lb_av] 190.00 [lb_av] MEDEN T ([facility]) Body mass index (BMI) [Ratio] 33.1 kg/m2 33.1 k g/m2 [facility] ([facility]) Body weight 188.6 [lb_av] 188.6 [lb_av] eCW1 ([facility]) Body height 63.5 [in_i] 63.5 [in_i] eCW1 ([facility]) Body mass index (BMI) [Ratio] 32.88 kg/m2 32.88 kg/m2 eCW1 ([facility]) Heart rate 61 /min 61 /min eCW1 ([facility]) Respiratory rate 18 /min 18 /min eCW1 ([facility]) Body temperature 97.5 [degF] 97.5 [degF] eCW1 ( [facility]) Systolic blood pressure 118 mm[Hg] 118 mm[Hg] e CW1 ([facility]) Diastolic blood pressure 68 mm[Hg] 68 mm[Hg] eCW1 ([facility]) Body weight 200.4 [lb_av] 200.4 [lb_av] eCW1 ([facility]) Body height 63.5 [in_i] 63.5 [in_i] eCW1 ([facility]) Body mass index (BMI) [Ratio] 34.94 kg/m2 34.94 kg/m2 eCW1 ([facility]) Systolic blood pressure 130 mm[Hg] 130 mm[Hg] [facility] Diastolic blood pressure 75 mm[Hg] 75 mm[Hg] [facility] Body height 160 cm 160 cm [facility] Body weight 89.359 kg 89.359 kg [facility] Body mass index (BMI) [Ratio] 34.90 kg/m2 34.90 kg/m2 [facility] Oxygen saturation in Arterial blood by Pulse oximetry 93 % 93 % [facility] Heart rate 73 /min 73 /min [facility] Body weight 183 [lb_av] 183 [lb_av] eCW1 ([facility]) Body height 63.5 [in_i] 63.5 [in_i] eCW1 ([facility]) Body mass index (BMI) [Ratio] 31.91 kg/m2 31.91 kg/m2 eCW1 ([facility]) Body weight 183 [lb_av] 183 [lb_av] eCW1 ([facility]) Body temperature 96.4 [degF] 96.4 [degF] eCW1 ( [facility]) Body height 63.5 [in_i] 63.5 [in_i] eCW1 ([facility]) Systolic blood pressure 98 mm[Hg] 98 mm[Hg] e CW1 ([facility]) Diastolic blood pressure 56 mm[Hg] 56 mm[Hg] eCW1 ([facility]) Body mass index (BMI) [Ratio] 31.91 kg/m2 31.91 kg/m2 W1 ([facility]) Heart rate 52 /min 52 /min eCW1 ([facility]) Respiratory rate 18 /min 18 /min eCW1 ([facility]) Body weight 186.00 [lb_av] 186.00 [lb_av] MEDEN T ([facility], ) Body mass index (BMI) [Ratio] 34.0 kg/m2 34.0 k g/m2 MEDENT ([facility], ) [place] body weight 110 [lb_av] 110 [lb_av] MEDEN T ([facility], ) Diastolic blood pressure 90 mm[Hg] 90 mm[Hg] MEDENT ([facility], ) Body height 62 [in_i] 62 [in_i] [facility], [facility] 5'2" Body weight 84.370 kg 84.370 kg [facility], ) Body surface area Derived from formula 1.85 m2 1.85 m2 [facility], ) Systolic blood pressure 150 mm[Hg] 150 mm[Hg] M EDENT ([facility], ) Body weight 185 [lb_av] 185 [lb_av] eCW1 ([facility]) Body height 63.5 [in_i] 63.5 [in_i] eCW1 ([facility]) Body mass index (BMI) [Ratio] 32.25 kg/m2 32.25 kg/m2 eCW1 ([facility]) Heart rate 89 /min 89 /min eCW1 ([facility]) Respiratory rate 20 /min 20 /min eCW1 ([facility]) Body temperature 96.1 [degF] 96.1 [degF] eCW1 ( [facility]) Systolic blood pressure 128 mm[Hg] 128 mm[Hg] e CW1 ([facility]) Diastolic blood pressure 70 mm[Hg] 70 mm[Hg] eCW1 ([facility]) Body weight 198 [lb_av] 198 [lb_av] eCW1 ([facility]) Body height 63.5 [in_i] 63.5 [in_i] eCW1 ([facility]) Body mass index (BMI) [Ratio] 34.52 kg/m2 34.52 kg/m2 eCW1 ([facility]) Heart rate 72 /min 72 /min eCW1 ([facility]) Respiratory rate 20 /min 20 /min eCW1 ([facility]) Body temperature 98.4 [degF] 98.4 [degF] eCW1 ( [facility]) Systolic blood pressure 130 mm[Hg] 130 mm[Hg] e CW1 ([facility]) Diastolic blood pressure 60 mm[Hg] 60 mm[Hg] eCW1 ([facility]) Body height 63.5 [in_i] 63.5 [in_i] eCW1 ([facility]) Body weight 168 [lb_av] 168 [lb_av] eCW1 ([facility]) Respiratory rate 20 /min 20 /min eCW1 ([facility]) Body temperature [degF] eCW1 ([facility]) Systolic blood pressure 122 mm[Hg] 122 mm[Hg] e CW1 ([facility]) Diastolic blood pressure 60 mm[Hg] 60 mm[Hg] eCW1 ([facility]) Body mass index (BMI) [Ratio] 29.29 kg/m2 29.29 kg/m2 eCW1 ([facility]) Heart rate 88 /min 88 /min eCW1 ([facility]) Body height 62 [in_i] 62 [in_i] MEDENT ([facility], ) 5'2" Body weight 172.00 [lb_av] 172.00 [lb_av] MEDEN T ([facility]) Body mass index (BMI) [Ratio] 31.5 kg/m2 31.5 k g/m2 [facility] ([facility]) Systolic blood pressure 138 mm[Hg] 138 mm[Hg] M EDENT ([facility]) Diastolic blood pressure 70 mm[Hg] 70 mm[Hg] MEDENT ([facility]) [place] body weight 110 [lb_av] 110 [lb_av] MEDEN T ([facility]) Body weight 78.019 kg 78.019 kg [facility] ([facility]) Body surface area Derived from formula 1.79 m2 1.79 m2 [facility] ([facility]) Systolic blood pressure 140 mm[Hg] 140 mm[Hg] M EDENT ([facility]) Diastolic blood pressure 72 mm[Hg] 72 mm[Hg] MEDENT ([facility]) Body mass index (BMI) [Ratio] 40.7 kg/m2 40.7 k g/m2 [facility] ([facility]) Body height 54.5 [in_i] 54.5 [in_i] MEDENT ([facility]) 4'6.50" Body weight 172.00 [lb_av] 172.00 [lb_av] MEDEN T ([facility]) [place] body weight 100 [lb_av] 100 [lb_av] MEDEN T ([facility]) Body surface area Derived from formula 1.63 m2 1.63 m2 [facility] ([facility]) Body weight 78.019 kg 78.019 kg [facility] ([facility]) Body weight 175 [lb_av] 175 [lb_av] eCW1 ([facility]) Body height 63.5 [in_i] 63.5 [in_i] eCW1 ([facility]) Body mass index (BMI) [Ratio] 30.51 kg/m2 30.51 kg/m2 eCW1 ([facility]) Heart rate 56 /min 56 /min eCW1 ([facility]) Respiratory rate 18 /min 18 /min eCW1 ([facility]) Body temperature 96.2 [degF] 96.2 [degF] eCW1 ( [facility]) Systolic blood pressure 98 mm[Hg] 98 mm[Hg] e CW1 ([facility]) Diastolic blood pressure 58 mm[Hg] 58 mm[Hg] eCW1 ([facility]) Systolic blood pressure 110 mm[Hg] 110 mm[Hg] M EDENT ([facility]) Diastolic blood pressure 58 mm[Hg] 58 mm[Hg] MEDENT ([facility]) Body height 54.5 [in_i] 54.5 [in_i] [facility] ([facility]) 4'6.50" Body weight 170.00 [lb_av] 170.00 [lb_av] MEDEN T ([facility]) Body mass index (BMI) [Ratio] 40.2 kg/m2 40.2 k g/m2 [facility] ([facility]) [place] body weight 100 [lb_av] 100 [lb_av] MEDEN T ([facility]) Body weight 77.112 kg 77.112 kg [facility] ([facility]) Body surface area Derived from formula 1.62 m2 1.62 m2 [facility] ([facility]) Systolic blood pressure 140 mm[Hg] 140 mm[Hg] [facility] Diastolic blood pressure 70 mm[Hg] 70 mm[Hg] [facility] Heart rate 66 /min 66 /min [facility] Body height 160 cm 160 cm [facility] Body weight 75.297 kg 75.297 kg [facility] Body mass index (BMI) [Ratio] 29.41 kg/m2 29.41 kg/m2 [facility] Oxygen saturation in Arterial blood by Pulse oximetry 97 % 97 % [facility] Body weight 166 [lb_av] 166 [lb_av] eCW1 ([facility]) Diastolic blood pressure 66 mm[Hg] 66 mm[Hg] eCW1 ([facility]) Body height 63.5 [in_i] 63.5 [in_i] W1 ([facility]) Body mass index (BMI) [Ratio] 28.94 kg/m2 28.94 kg/m2 W1 ([facility]) Body temperature 96.3 [degF] 96.3 [degF] eCW1 ( [facility]) Heart rate 79 /min 79 /min eCW1 ([facility]) Systolic blood pressure 140 mm[Hg] 140 mm[Hg] e CW1 ([facility]) Respiratory rate 18 /min 18 /min eCW1 ([facility]) Diastolic blood pressure 98 mm[Hg] 98 mm[Hg] MEDENT ([facility]) states she took her medication this morn ing Systolic blood pressure 196 mm[Hg] 196 mm[Hg] M EDENT ([facility], [facility]) states she took her medication this morn ing Heart rate 74 /min 74 /min MEDENT ([facility]) Oxygen saturation in Arterial blood by Pulse oximetry 99 % 99 % MEDENT ([facility]) Body temperature 97.9 [degF] 97.9 [degF] MEDENT ([facility]) Body weight 184.00 [lb_av] 184.00 [lb_av] MEDEN T ([facility], [facility]) Body height 65 [in_i] 65 [in_i] MEDMARIA INES ([facility]) 5'5" Body mass index (BMI) [Ratio] 30.6 kg/m2 30.6 k g/m2 MEDMARIA INES ([facility]) Patient Treatment Plan of Care Planned Activity Planned Date Details Description Data Source (s) Levothyroxine Sodium 0.075 MG Oral Tablet 12/13/2020 12:00:00 AM ED T eCW1 ([facility]) Levothyroxine Sodium 0.075 MG Oral Tablet 12/13/2020 12:00:00 AM ED T eCW1 ([facility]) Levothyroxine Sodium 0.075 MG Oral Tablet 12/13/2020 12:00:00 AM ED T eCW1 ([facility]) duloxetine 60 MG Delayed Release Oral Capsule 12/12/2020 12:00:00 A M EDT eCW1 ([facility]) duloxetine 60 MG Delayed Release Oral Capsule 12/12/2020 12:00:00 A M EDT eCW1 ([facility]) duloxetine 60 MG Delayed Release Oral Capsule 12/12/2020 12:00:00 A M EDT eCW1 ([facility]) duloxetine 60 MG Delayed Release Oral Capsule 12/12/2020 12:00:00 A M EDT eCW1 ([facility]) Acetaminophen 325 MG / Hydrocodone Bitartrate 7.5 MG O ral Tablet 12/01/2020 12:00:00 AM EDT eCW1 ([facility]) Triamcinolone Acetonide 1 MG/ML Topical Cream 10/11/2020 12:00:00 A M EDT eCW1 ([facility]) Triamcinolone Acetonide 1 MG/ML Topical Cream 10/11/2020 12:00:00 A M EDT eCW1 ([facility]) Triamcinolone Acetonide 1 MG/ML Topical Cream 10/11/2020 12:00:00 A M EDT eCW1 ([facility]) Levothyroxine Sodium 0.05 MG Oral Tablet 10/04/2020 12:00:00 AM EDT eCW1 ([facility]) Levothyroxine Sodium 0.05 MG Oral Tablet 10/04/2020 12:00:00 AM EDT eCW1 ([facility]) Levothyroxine Sodium 0.05 MG Oral Tablet 10/04/2020 12:00:00 AM EDT eCW1 ([facility]) Acetaminophen 325 MG / Hydrocodone Bitartrate 7.5 MG O ral Tablet 10/03/2020 12:00:00 AM EDT eCW1 ([facility]) Acetaminophen 325 MG / Hydrocodone Bitartrate 7.5 MG O ral Tablet 10/03/2020 12:00:00 AM EDT eCW1 ([facility]) Acetaminophen 325 MG / Hydrocodone Bitartrate 7.5 MG O ral Tablet 10/03/2020 12:00:00 AM EDT eCW1 ([facility]) Acetaminophen 325 MG / Hydrocodone Bitartrate 7.5 MG O ral Tablet 10/03/2020 12:00:00 AM EDT eCW1 ([facility]) Acetaminophen 325 MG / Hydrocodone Bitartrate 7.5 MG O ral Tablet 10/03/2020 12:00:00 AM EDT eCW1 ([facility]) Acetaminophen 325 MG / Hydrocodone Bitartrate 7.5 MG O ral Tablet 10/03/2020 12:00:00 AM EDT eCW1 ([facility]) Acetaminophen 325 MG / Hydrocodone Bitartrate 7.5 MG O ral Tablet 10/03/2020 12:00:00 AM EDT eCW1 ([facility]) Acetaminophen 325 MG / Hydrocodone Bitartrate 7.5 MG O ral Tablet 10/03/2020 12:00:00 AM EDT eCW1 ([facility]) Amlodipine 2.5 MG Oral Tablet 09/30/2020 12:00:00 AM EDT eCW1 ([facility]) Amlodipine 2.5 MG Oral Tablet 09/30/2020 12:00:00 AM EDT eCW1 ([facility]) Amlodipine 2.5 MG Oral Tablet 09/30/2020 12:00:00 AM EDT [facility] Amlodipine 2.5 MG Oral Tablet 09/30/2020 12:00:00 AM EDT eCW1 ([facility]) Amlodipine 2.5 MG Oral Tablet 09/30/2020 12:00:00 AM EDT eCW1 ([facility]) Amlodipine 2.5 MG Oral Tablet 09/30/2020 12:00:00 AM EDT eCW1 ([facility]) Acetaminophen 325 MG / Hydrocodone Bitartrate 7.5 MG O ral Tablet 09/12/2020 12:00:00 AM EDT eCW1 ([facility]) Acetaminophen 325 MG / Hydrocodone Bitartrate 7.5 MG O ral Tablet 09/12/2020 12:00:00 AM EDT eCW1 ([facility]) Acetaminophen 325 MG / Hydrocodone Bitartrate 7.5 MG O ral Tablet 09/12/2020 12:00:00 AM EDT eCW1 ([facility]) Acetaminophen 325 MG / Hydrocodone Bitartrate 7.5 MG O ral Tablet 09/12/2020 12:00:00 AM EDT eCW1 ([facility]) Hospital bed _ 08/22/2020 12:00:00 AM EDT eCW1 ([facility]) Hospital bed _ 08/22/2020 12:00:00 AM EDT eCW1 ([facility]) Hospital bed _ 08/22/2020 12:00:00 AM EDT eCW1 ([facility]) Hospital bed _ 08/22/2020 12:00:00 AM EDT eCW1 ([facility]) Hospital bed _ 08/22/2020 12:00:00 AM EDT eCW1 ([facility]) Hospital bed _ 08/22/2020 12:00:00 AM EDT eCW1 ([facility]) Hospital bed _ 08/22/2020 12:00:00 AM EDT eCW1 ([facility]) Hospital bed _ 08/22/2020 12:00:00 AM EDT eCW1 ([facility]) Hospital bed _ 08/22/2020 12:00:00 AM EDT eCW1 ([facility]) Acetaminophen 325 MG / Hydrocodone Bitartrate 7.5 MG O ral Tablet 08/02/2020 12:00:00 AM EDT eCW1 ([facility]) Acetaminophen 325 MG / Hydrocodone Bitartrate 7.5 MG O ral Tablet 08/02/2020 12:00:00 AM EDT eCW1 ([facility]) Blood Pressure Monitor - 07/29/2020 12:00:00 AM EDT eCW1 ([facility]) Blood Pressure Kit - 07/22/2020 12:00:00 AM EDT eCW1 ([facility]) Blood Pressure Kit - 07/22/2020 12:00:00 AM EDT eCW1 ([facility]) Blood Pressure Kit - 07/22/2020 12:00:00 AM EDT eCW1 ([facility]) Spironolactone 25 MG Oral Tablet 07/06/2020 12:00:00 AM EDT [facility] Losartan Potassium 100 MG Oral Tablet 07/06/2020 12:00:00 AM EDT [facility] empagliflozin 10 MG Oral Tablet [Jardiance] 07/05/2020 12:00:00 AM EDT eCW1 ([facility]) empagliflozin 10 MG Oral Tablet [Jardiance] 07/05/2020 12:00:00 AM EDT eCW1 ([facility]) empagliflozin 10 MG Oral Tablet [Jardiance] 07/05/2020 12:00:00 AM EDT eCW1 ([facility]) empagliflozin 10 MG Oral Tablet [Jardiance] 07/05/2020 12:00:00 AM EDT eCW1 ([facility]) empagliflozin 10 MG Oral Tablet [Jardiance] 07/05/2020 12:00:00 AM EDT eCW1 ([facility]) empagliflozin 10 MG Oral Tablet [Jardiance] 07/05/2020 12:00:00 AM EDT eCW1 ([facility]) empagliflozin 10 MG Oral Tablet [Jardiance] 07/05/2020 12:00:00 AM EDT eCW1 ([facility]) empagliflozin 10 MG Oral Tablet [Jardiance] 07/05/2020 12:00:00 AM EDT eCW1 ([facility]) empagliflozin 10 MG Oral Tablet [Jardiance] 07/05/2020 12:00:00 AM EDT eCW1 ([facility]) empagliflozin 10 MG Oral Tablet [Jardiance] 07/05/2020 12:00:00 AM EDT eCW1 ([facility]) empagliflozin 10 MG Oral Tablet [Jardiance] 07/05/2020 12:00:00 AM EDT eCW1 ([facility]) empagliflozin 25 MG Oral Tablet [Jardiance] 07/05/2020 12:00:00 AM EDT eCW1 ([facility]) empagliflozin 25 MG Oral Tablet [Jardiance] 07/05/2020 12:00:00 AM EDT eCW1 ([facility]) empagliflozin 10 MG Oral Tablet [Jardiance] 07/05/2020 12:00:00 AM EDT eCW1 ([facility]) empagliflozin 10 MG Oral Tablet [Jardiance] 07/05/2020 12:00:00 AM EDT eCW1 ([facility]) torsemide 10 MG Oral Tablet 06/08/2020 12:00:00 AM EDT [facility] Losartan Potassium 50 MG Oral Tablet 06/08/2020 12:00:00 AM EDT [facility] Acetaminophen 325 MG / Hydrocodone Bitartrate 5 MG Ora l Tablet 06/07/2020 12:00:00 AM EDT eCW1 ([facility]) Acetaminophen 325 MG / Hydrocodone Bitartrate 5 MG Ora l Tablet 06/07/2020 12:00:00 AM EDT eCW1 ([facility]) Acetaminophen 325 MG / Hydrocodone Bitartrate 5 MG Ora l Tablet 06/07/2020 12:00:00 AM EDT eCW1 ([facility]) Acetaminophen 325 MG / Hydrocodone Bitartrate 5 MG Ora l Tablet 06/07/2020 12:00:00 AM EDT eCW1 ([facility]) Acetaminophen 325 MG / Hydrocodone Bitartrate 5 MG Ora l Tablet 06/07/2020 12:00:00 AM EDT eCW1 ([facility]) Acetaminophen 325 MG / Hydrocodone Bitartrate 5 MG Ora l Tablet 06/07/2020 12:00:00 AM EDT eCW1 ([facility]) Acetaminophen 325 MG / Hydrocodone Bitartrate 5 MG Ora l Tablet 06/07/2020 12:00:00 AM EDT eCW1 ([facility]) 24 HR Metformin hydrochloride 500 MG Extended Release Oral Tablet 06/07/2020 12:00:00 AM EDT [facility] empagliflozin 10 MG Oral Tablet [Jardiance] 06/07/2020 12:00:00 AM EDT [facility] Levothyroxine Sodium 0.025 MG Oral Tablet 06/03/2020 12:00:00 AM ED T eCW1 ([facility]) Levothyroxine Sodium 0.025 MG Oral Tablet 06/03/2020 12:00:00 AM ED T eCW1 ([facility]) Levothyroxine Sodium 0.025 MG Oral Tablet 06/03/2020 12:00:00 AM ED T eCW1 ([facility]) Levothyroxine Sodium 0.025 MG Oral Tablet 06/03/2020 12:00:00 AM ED T eCW1 ([facility]) Levothyroxine Sodium 0.025 MG Oral Tablet 06/03/2020 12:00:00 AM ED T eCW1 ([facility]) Levothyroxine Sodium 0.025 MG Oral Tablet 06/03/2020 12:00:00 AM ED T eCW1 ([facility]) Levothyroxine Sodium 0.025 MG Oral Tablet 06/03/2020 12:00:00 AM ED T eCW1 ([facility]) Levothyroxine Sodium 0.025 MG Oral Tablet 06/03/2020 12:00:00 AM ED T eCW1 ([facility]) Levothyroxine Sodium 0.025 MG Oral Tablet 06/03/2020 12:00:00 AM ED T eCW1 ([facility]) Levothyroxine Sodium 0.025 MG Oral Tablet 06/03/2020 12:00:00 AM ED T eCW1 ([facility]) Losartan Potassium 50 MG Oral Tablet 05/17/2020 12:00:00 AM EDT eCW1 ([facility]) Losartan Potassium 50 MG Oral Tablet 05/17/2020 12:00:00 AM EDT eCW1 ([facility]) Losartan Potassium 50 MG Oral Tablet 05/17/2020 12:00:00 AM EDT eCW1 ([facility]) Losartan Potassium 50 MG Oral Tablet 05/17/2020 12:00:00 AM EDT eCW1 ([facility]) Losartan Potassium 100 MG Oral Tablet 05/17/2020 12:00:00 AM EDT eCW1 ([facility]) Losartan Potassium 100 MG Oral Tablet 05/17/2020 12:00:00 AM EDT eCW1 ([facility]) Losartan Potassium 100 MG Oral Tablet 05/17/2020 12:00:00 AM EDT eCW1 ([facility]) Losartan Potassium 100 MG Oral Tablet 05/17/2020 12:00:00 AM EDT eCW1 ([facility]) Losartan Potassium 100 MG Oral Tablet 05/17/2020 12:00:00 AM EDT eCW1 ([facility]) Losartan Potassium 100 MG Oral Tablet 05/17/2020 12:00:00 AM EDT eCW1 ([facility]) Losartan Potassium 100 MG Oral Tablet 05/17/2020 12:00:00 AM EDT eCW1 ([facility]) Losartan Potassium 50 MG Oral Tablet 05/17/2020 12:00:00 AM EDT [facility] Losartan Potassium 100 MG Oral Tablet 05/17/2020 12:00:00 AM EDT eCW1 ([facility]) Losartan Potassium 100 MG Oral Tablet 05/17/2020 12:00:00 AM EDT eCW1 ([facility]) Acetaminophen 325 MG / Hydrocodone Bitartrate 5 MG Ora l Tablet 05/12/2020 12:00:00 AM EDT eCW1 ([facility]) empagliflozin 10 MG Oral Tablet [Jardiance] 04/21/2020 12:00:00 AM EST eCW1 ([facility]) empagliflozin 10 MG Oral Tablet [Jardiance] 04/21/2020 12:00:00 AM EST eCW1 ([facility]) empagliflozin 10 MG Oral Tablet [Jardiance] 04/21/2020 12:00:00 AM EST eCW1 ([facility]) empagliflozin 10 MG Oral Tablet [Jardiance] 04/21/2020 12:00:00 AM EST eCW1 ([facility]) empagliflozin 10 MG Oral Tablet [Jardiance] 04/21/2020 12:00:00 AM EST eCW1 ([facility]) carvedilol 6.25 MG Oral Tablet 04/15/2020 12:00:00 AM EST [facility] Acetaminophen 325 MG / Hydrocodone Bitartrate 5 MG Ora l Tablet 04/11/2020 12:00:00 AM EST eCW1 ([facility]) Acetaminophen 325 MG / Hydrocodone Bitartrate 5 MG Ora l Tablet 04/11/2020 12:00:00 AM EST eCW1 ([facility]) Acetaminophen 325 MG / Hydrocodone Bitartrate 5 MG Ora l Tablet 04/11/2020 12:00:00 AM EST eCW1 ([facility]) Acetaminophen 325 MG / Hydrocodone Bitartrate 5 MG Ora l Tablet 04/11/2020 12:00:00 AM EST eCW1 ([facility]) Acetaminophen 325 MG / Hydrocodone Bitartrate 5 MG Ora l Tablet 04/11/2020 12:00:00 AM EST eCW1 ([facility]) Acetaminophen 325 MG / Hydrocodone Bitartrate 5 MG Ora l Tablet 04/11/2020 12:00:00 AM EST eCW1 ([facility]) Acetaminophen 325 MG / Hydrocodone Bitartrate 5 MG Ora l Tablet 04/11/2020 12:00:00 AM EST eCW1 ([facility]) Amlodipine 2.5 MG Oral Tablet 04/04/2020 12:00:00 AM EST [facility] Amlodipine 2.5 MG Oral Tablet 04/04/2020 12:00:00 AM EST eCW1 ([facility]) Amlodipine 2.5 MG Oral Tablet 04/04/2020 12:00:00 AM EST eCW1 ([facility]) Amlodipine 2.5 MG Oral Tablet 04/04/2020 12:00:00 AM EST eCW1 ([facility]) Amlodipine 2.5 MG Oral Tablet 04/04/2020 12:00:00 AM EST eCW1 ([facility]) Amlodipine 2.5 MG Oral Tablet 04/04/2020 12:00:00 AM EST eCW1 ([facility]) Amlodipine 2.5 MG Oral Tablet 04/04/2020 12:00:00 AM EST eCW1 ([facility]) Amlodipine 2.5 MG Oral Tablet 04/04/2020 12:00:00 AM EST eCW1 ([facility]) Amlodipine 2.5 MG Oral Tablet 04/04/2020 12:00:00 AM EST eCW1 ([facility]) Amlodipine 2.5 MG Oral Tablet 04/04/2020 12:00:00 AM EST eCW1 ([facility]) Potassium Chloride 10 MEQ Extended Release Oral Tablet 04/02/2020 12:00:00 AM EST [facility] 24 HR Metformin hydrochloride 500 MG Extended Release Oral Tablet 03/19/2020 12:00:00 AM EST [facility] Sucralfate 1000 MG Oral Tablet 03/08/2020 12:00:00 AM EST [facility] Sucralfate 1000 MG Oral Tablet [Carafate] 03/08/2020 12:00:00 AM ES T eCW1 ([facility]) Sucralfate 1000 MG Oral Tablet [Carafate] 03/08/2020 12:00:00 AM ES T eCW1 ([facility]) Sucralfate 1000 MG Oral Tablet [Carafate] 03/08/2020 12:00:00 AM ES T eCW1 ([facility]) Sucralfate 1000 MG Oral Tablet [Carafate] 03/08/2020 12:00:00 AM ES T eCW1 ([facility]) Sucralfate 1000 MG Oral Tablet [Carafate] 03/08/2020 12:00:00 AM ES T eCW1 ([facility]) Sucralfate 1000 MG Oral Tablet [Carafate] 03/08/2020 12:00:00 AM ES T eCW1 ([facility]) Acetaminophen 325 MG / Hydrocodone Bitartrate 5 MG Ora l Tablet 02/25/2020 12:00:00 AM EST eCW1 ([facility]) Acetaminophen 325 MG / Hydrocodone Bitartrate 5 MG Ora l Tablet 02/25/2020 12:00:00 AM EST eCW1 ([facility]) Acetaminophen 325 MG / Hydrocodone Bitartrate 5 MG Ora l Tablet 02/25/2020 12:00:00 AM EST eCW1 ([facility]) torsemide 10 MG Oral Tablet 02/24/2020 12:00:00 AM EST eCW1 ([facility]) torsemide 10 MG Oral Tablet 02/24/2020 12:00:00 AM EST eCW1 ([facility]) torsemide 10 MG Oral Tablet 02/24/2020 12:00:00 AM EST eCW1 ([facility]) torsemide 10 MG Oral Tablet 02/24/2020 12:00:00 AM EST eCW1 ([facility]) torsemide 20 MG Oral Tablet 02/24/2020 12:00:00 AM EST eCW1 ([facility]) torsemide 20 MG Oral Tablet 02/24/2020 12:00:00 AM EST eCW1 ([facility]) torsemide 20 MG Oral Tablet 02/24/2020 12:00:00 AM EST eCW1 ([facility]) torsemide 20 MG Oral Tablet 02/24/2020 12:00:00 AM EST eCW1 ([facility]) torsemide 20 MG Oral Tablet 02/24/2020 12:00:00 AM EST eCW1 ([facility]) torsemide 20 MG Oral Tablet 02/24/2020 12:00:00 AM EST eCW1 ([facility]) torsemide 20 MG Oral Tablet 02/24/2020 12:00:00 AM EST eCW1 ([facility]) torsemide 20 MG Oral Tablet 02/24/2020 12:00:00 AM EST eCW1 ([facility]) torsemide 20 MG Oral Tablet 02/24/2020 12:00:00 AM EST eCW1 ([facility]) torsemide 20 MG Oral Tablet 02/24/2020 12:00:00 AM EST eCW1 ([facility]) torsemide 20 MG Oral Tablet 02/24/2020 12:00:00 AM EST eCW1 ([facility]) torsemide 20 MG Oral Tablet 02/24/2020 12:00:00 AM EST eCW1 ([facility]) torsemide 20 MG Oral Tablet 02/24/2020 12:00:00 AM EST eCW1 ([facility]) torsemide 20 MG Oral Tablet 02/24/2020 12:00:00 AM EST eCW1 ([facility]) torsemide 20 MG Oral Tablet 02/24/2020 12:00:00 AM EST eCW1 ([facility]) torsemide 20 MG Oral Tablet 02/24/2020 12:00:00 AM EST eCW1 ([facility]) torsemide 20 MG Oral Tablet 02/24/2020 12:00:00 AM EST eCW1 ([facility]) torsemide 20 MG Oral Tablet 02/24/2020 12:00:00 AM EST eCW1 ([facility]) torsemide 20 MG Oral Tablet 02/24/2020 12:00:00 AM EST eCW1 ([facility]) torsemide 20 MG Oral Tablet 02/24/2020 12:00:00 AM EST eCW1 ([facility]) [place] - 02/15/2020 12:00:00 AM EST e CW1 ([facility]) Walker - 02/15/2020 12:00:00 AM EST e CW1 ([facility]) Walker - 02/15/2020 12:00:00 AM EST e CW1 ([facility]) Test Strips - 02/09/2020 12:00:00 AM EST eCW1 ([facility]) Test Strips - 02/09/2020 12:00:00 AM EST eCW1 ([facility]) Test Strips - 02/09/2020 12:00:00 AM EST eCW1 ([facility]) Test Strips - 02/09/2020 12:00:00 AM EST eCW1 ([facility]) Test Strips - 02/09/2020 12:00:00 AM EST eCW1 ([facility]) Test Strips - 02/09/2020 12:00:00 AM EST eCW1 ([facility]) 3 ML insulin detemir 100 UNT/ML Pen Injector [Levemir] 02/03/2020 12:00:00 AM EST eCW1 ([facility]) 3 ML insulin detemir 100 UNT/ML Pen Injector [Levemir] 02/03/2020 12:00:00 AM EST eCW1 ([facility]) 3 ML insulin detemir 100 UNT/ML Pen Injector [Levemir] 02/03/2020 12:00:00 AM EST eCW1 ([facility]) 3 ML insulin detemir 100 UNT/ML Pen Injector [Levemir] 02/03/2020 12:00:00 AM EST eCW1 ([facility]) 3 ML insulin detemir 100 UNT/ML Pen Injector [Levemir] 02/03/2020 12:00:00 AM EST eCW1 ([facility]) 3 ML insulin detemir 100 UNT/ML Pen Injector [Levemir] 02/03/2020 12:00:00 AM EST eCW1 ([facility]) 3 ML insulin detemir 100 UNT/ML Pen Injector [Levemir] 02/03/2020 12:00:00 AM EST eCW1 ([facility]) 3 ML insulin detemir 100 UNT/ML Pen Injector [Levemir] 02/03/2020 12:00:00 AM EST eCW1 ([facility]) 3 ML insulin detemir 100 UNT/ML Pen Injector [Levemir] 02/03/2020 12:00:00 AM EST eCW1 ([facility]) 3 ML insulin detemir 100 UNT/ML Pen Injector [Levemir] 02/03/2020 12:00:00 AM EST eCW1 ([facility]) 3 ML insulin detemir 100 UNT/ML Pen Injector [Levemir] 02/03/2020 12:00:00 AM EST eCW1 ([facility]) 3 ML insulin detemir 100 UNT/ML Pen Injector [Levemir] 02/03/2020 12:00:00 AM EST eCW1 ([facility]) 3 ML insulin detemir 100 UNT/ML Pen Injector [Levemir] 02/03/2020 12:00:00 AM EST eCW1 ([facility]) 3 ML insulin detemir 100 UNT/ML Pen Injector [Levemir] 02/03/2020 12:00:00 AM EST eCW1 ([facility]) 3 ML insulin detemir 100 UNT/ML Pen Injector [Levemir] 02/03/2020 12:00:00 AM EST eCW1 ([facility]) 3 ML insulin detemir 100 UNT/ML Pen Injector [Levemir] 02/03/2020 12:00:00 AM EST eCW1 ([facility]) 3 ML insulin detemir 100 UNT/ML Pen Injector [Levemir] 02/03/2020 12:00:00 AM EST eCW1 ([facility]) 3 ML insulin detemir 100 UNT/ML Pen Injector [Levemir] 02/03/2020 12:00:00 AM EST eCW1 ([facility]) 3 ML insulin detemir 100 UNT/ML Pen Injector [Levemir] 02/03/2020 12:00:00 AM EST eCW1 ([facility]) 3 ML insulin detemir 100 UNT/ML Pen Injector [Levemir] 02/03/2020 12:00:00 AM EST eCW1 ([facility]) 3 ML insulin detemir 100 UNT/ML Pen Injector [Levemir] 02/03/2020 12:00:00 AM EST eCW1 ([facility]) 3 ML insulin detemir 100 UNT/ML Pen Injector [Levemir] 02/03/2020 12:00:00 AM EST eCW1 ([facility]) 3 ML insulin detemir 100 UNT/ML Pen Injector [Levemir] 02/03/2020 12:00:00 AM EST eCW1 ([facility]) 3 ML insulin detemir 100 UNT/ML Pen Injector [Levemir] 02/03/2020 12:00:00 AM EST eCW1 ([facility]) 3 ML insulin detemir 100 UNT/ML Pen Injector [Levemir] 02/03/2020 12:00:00 AM EST eCW1 ([facility]) 3 ML insulin detemir 100 UNT/ML Pen Injector [Levemir] 02/03/2020 12:00:00 AM EST eCW1 ([facility]) 3 ML insulin detemir 100 UNT/ML Pen Injector [Levemir] 02/03/2020 12:00:00 AM EST eCW1 ([facility]) 3 ML insulin detemir 100 UNT/ML Pen Injector [Levemir] 02/03/2020 12:00:00 AM EST eCW1 ([facility]) 3 ML insulin detemir 100 UNT/ML Pen Injector [Levemir] 02/03/2020 12:00:00 AM EST eCW1 ([facility]) 3 ML insulin detemir 100 UNT/ML Pen Injector [Levemir] 02/03/2020 12:00:00 AM EST eCW1 ([facility]) 3 ML insulin detemir 100 UNT/ML Pen Injector [Levemir] 02/03/2020 12:00:00 AM EST eCW1 ([facility]) 3 ML insulin detemir 100 UNT/ML Pen Injector [Levemir] 02/03/2020 12:00:00 AM EST eCW1 ([facility]) 3 ML insulin detemir 100 UNT/ML Pen Injector [Levemir] 02/03/2020 12:00:00 AM EST eCW1 ([facility]) 3 ML insulin detemir 100 UNT/ML Pen Injector [Levemir] 02/03/2020 12:00:00 AM EST eCW1 ([facility]) 3 ML insulin detemir 100 UNT/ML Pen Injector [Levemir] 02/03/2020 12:00:00 AM EST eCW1 ([facility]) 3 ML insulin detemir 100 UNT/ML Pen Injector [Levemir] 02/03/2020 12:00:00 AM EST eCW1 ([facility]) 3 ML insulin detemir 100 UNT/ML Pen Injector [Levemir] 02/03/2020 12:00:00 AM EST eCW1 ([facility]) 3 ML insulin detemir 100 UNT/ML Pen Injector [Levemir] 02/03/2020 12:00:00 AM EST eCW1 ([facility]) Amlodipine 5 MG Oral Tablet 02/03/2020 12:00:00 AM EST eCW1 ([facility]) 3 ML insulin detemir 100 UNT/ML Pen Injector [Levemir] 02/03/2020 12:00:00 AM EST eCW1 ([facility]) Amlodipine 5 MG Oral Tablet 02/03/2020 12:00:00 AM EST eCW1 ([facility]) 3 ML insulin detemir 100 UNT/ML Pen Injector [Levemir] 02/03/2020 12:00:00 AM EST eCW1 ([facility]) 3 ML insulin detemir 100 UNT/ML Pen Injector [Levemir] 02/03/2020 12:00:00 AM EST eCW1 ([facility]) Amlodipine 5 MG Oral Tablet 02/03/2020 12:00:00 AM EST eCW1 ([facility]) 3 ML insulin detemir 100 UNT/ML Pen Injector [Levemir] 02/03/2020 12:00:00 AM EST eCW1 ([facility]) Amlodipine 5 MG Oral Tablet 02/03/2020 12:00:00 AM EST eCW1 ([facility]) 3 ML insulin detemir 100 UNT/ML Pen Injector [Levemir] 02/03/2020 12:00:00 AM EST eCW1 ([facility]) 3 ML insulin detemir 100 UNT/ML Pen Injector [Levemir] 02/03/2020 12:00:00 AM EST eCW1 ([facility]) Amlodipine 5 MG Oral Tablet 02/03/2020 12:00:00 AM EST eCW1 ([facility]) 3 ML insulin detemir 100 UNT/ML Pen Injector [Levemir] 02/03/2020 12:00:00 AM EST eCW1 ([facility]) Amlodipine 5 MG Oral Tablet 02/03/2020 12:00:00 AM EST eCW1 ([facility]) Hydrochlorothiazide 12.5 MG Oral Capsule 02/02/2020 12:00:00 AM EST [facility] ferrous sulfate 325 MG Delayed Release Oral Tablet 01/26/2020 12 :00:00 AM EST eCW1 ([facility]) Pen [place] 5/16" 01/26/2020 12:00:00 AM EST eCW1 ([facility]) ferrous sulfate 325 MG Delayed Release Oral Tablet 01/26/2020 12 :00:00 AM EST eCW1 ([facility]) Pen [place] 07/10" 01/26/2020 12:00:00 AM EST eCW1 ([facility]) ferrous sulfate 325 MG Delayed Release Oral Tablet 01/26/2020 12 :00:00 AM EST eCW1 ([facility]) Pen [place] 07/10" 01/26/2020 12:00:00 AM EST eCW1 ([facility]) Lancets - 12/07/2019 12:00:00 AM EDT e CW1 ([facility]) Lancets - 12/07/2019 12:00:00 AM EDT e CW1 ([facility]) Lancets - 12/07/2019 12:00:00 AM EDT e CW1 ([facility]) Lancets - 12/07/2019 12:00:00 AM EDT e CW1 ([facility]) Lancets - 12/07/2019 12:00:00 AM EDT e CW1 ([facility]) Lancets - 12/07/2019 12:00:00 AM EDT e CW1 ([facility]) Glucometer 12/07/2019 12:00:00 AM EDT e CW1 ([facility]) Lancets - 12/07/2019 12:00:00 AM EDT e CW1 ([facility]) Lancets - 12/07/2019 12:00:00 AM EDT e CW1 ([facility]) Lancets - 12/07/2019 12:00:00 AM EDT e CW1 ([facility]) Lancets - 12/07/2019 12:00:00 AM EDT e CW1 ([facility]) Lancets - 12/07/2019 12:00:00 AM EDT e CW1 ([facility]) Glucometer 12/07/2019 12:00:00 AM EDT e CW1 ([facility]) Lancets - 12/07/2019 12:00:00 AM EDT e CW1 ([facility]) Glucometer 12/07/2019 12:00:00 AM EDT e CW1 ([facility]) Lancets - 12/07/2019 12:00:00 AM EDT e CW1 ([facility]) Glucometer 12/07/2019 12:00:00 AM EDT e CW1 ([facility]) Glucometer 12/07/2019 12:00:00 AM EDT e CW1 ([facility]) Lancets - 12/07/2019 12:00:00 AM EDT e CW1 ([facility]) Glucometer 12/07/2019 12:00:00 AM EDT e CW1 ([facility]) Lancets - 12/07/2019 12:00:00 AM EDT e CW1 ([facility]) Glucometer 12/07/2019 12:00:00 AM EDT e CW1 ([facility]) Lancets - 12/07/2019 12:00:00 AM EDT e CW1 ([facility]) Glucometer 12/07/2019 12:00:00 AM EDT e CW1 ([facility]) Lancets - 12/07/2019 12:00:00 AM EDT e CW1 ([facility]) Acetaminophen 325 MG / Hydrocodone Bitartrate 5 MG Ora l Tablet 12/03/2019 12:00:00 AM EDT eCW1 ([facility]) Acetaminophen 325 MG / Hydrocodone Bitartrate 5 MG Ora l Tablet 12/03/2019 12:00:00 AM EDT eCW1 ([facility]) Acetaminophen 325 MG / Hydrocodone Bitartrate 5 MG Ora l Tablet 12/03/2019 12:00:00 AM EDT eCW1 ([facility]) Acetaminophen 325 MG / Hydrocodone Bitartrate 5 MG Ora l Tablet 12/03/2019 12:00:00 AM EDT eCW1 ([facility]) Acetaminophen 325 MG / Hydrocodone Bitartrate 5 MG Ora l Tablet 12/03/2019 12:00:00 AM EDT eCW1 ([facility]) Acetaminophen 325 MG / Hydrocodone Bitartrate 5 MG Ora l Tablet 12/03/2019 12:00:00 AM EDT eCW1 ([facility]) Acetaminophen 325 MG / Hydrocodone Bitartrate 5 MG Ora l Tablet 12/03/2019 12:00:00 AM EDT eCW1 ([facility]) Acetaminophen 325 MG / Hydrocodone Bitartrate 5 MG Ora l Tablet 12/03/2019 12:00:00 AM EDT eCW1 ([facility]) Acetaminophen 325 MG / Hydrocodone Bitartrate 5 MG Ora l Tablet 12/03/2019 12:00:00 AM EDT eCW1 ([facility]) Acetaminophen 325 MG / Hydrocodone Bitartrate 5 MG Ora l Tablet 12/03/2019 12:00:00 AM EDT eCW1 ([facility]) gabapentin 100 MG Oral Capsule 11/19/2019 12:00:00 AM EDT [facility] torsemide 20 MG Oral Tablet 11/19/2019 12:00:00 AM EDT [facility] potassium chloride SA (K-DUR,KLOR-CON) 10 MEQ tablet 12:00:00 AM EDT [facility] dapagliflozin 5 MG Oral Tablet [Farxiga] 11/10/2019 12:00:00 AM EDT [facility] 24 HR Metformin hydrochloride 500 MG Extended Release Oral Tablet 11/02/2019 12:00:00 AM EDT [facility] carvedilol 3.125 MG Oral Tablet 09/23/2019 12:00:00 AM EDT [facility] Nystatin 869288 UNT/ML Oral Suspension 07/02/2019 12:00:00 AM EDT [facility] Losartan Potassium 100 MG Oral Tablet 12/10/2018 12:00:00 AM EDT [facility] dapagliflozin 10 MG Oral Tablet [Farxiga] 10/31/2018 12:00:00 AM ED T [facility] Furosemide 20 MG Oral Tablet 06/04/2018 12:00:00 AM EDT [facility] 3 ML Insulin Glargine 100 UNT/ML Pen Injector 07/12/2017 12:00:00 A M EDT [facility] [place]-3 Acid Ethyl Esters (ASSISTED) 1000 MG Oral Capsule 011 12:00:00 AM EDT [facility]
[2020-12-31] MEDS ORDERED: HOME MED LIST COMPLETE! XX SCH (16:35)
--- NOTE | 2020-12-31 17:39 | ECGEPIP ---
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
[2020-12-31] MEDS ORDERED: tiZANidine 4 MG TAB PO PRN (17:50)
[2020-12-31] MEDS: HumaLOG INSULIN (NovoLOG) PER UNIT SC SCH ×2 (17:52→21:00)
[2020-12-31] MEDS: **hydrALAZINE** 10 MG TAB PO SCH (18:00)
[2020-12-31] MEDS: MORPHINE 4 MG/ML 1ML VIAL/SYRINGE (J2270) IV PRN (18:41)
[2020-12-31] MEDS: ISOSORBIDE DIN. (ISORDIL) 20 MG TAB PO SCH (19:45)
[2020-12-31] MEDS: LEVEMIR (INSULIN DETEMIR) 1 UNITS/0.01ML SC SCH (21:08)
[2020-12-31] MEDS: SUCRALFATE 1 GM TAB PO SCH (21:09)
[2020-12-31] MEDS: PERCOCET 5MG/325MG TAB PO PRN (21:09)
[2020-12-31] MEDS: DOCUSATE SODIUM 100MG CAPSULE PO SCH (21:09)
[2020-12-31] MEDS: GABAPENTIN 100 MG CAP PO SCH (21:09)
[2020-12-31] MEDS: HEPARIN SOD (PORCINE) 5000UNITS/ML 1ML VIAL/SYRINGE SC SCH (22:00)
[2021-01-01] MEDS: **hydrALAZINE** 10 MG TAB PO SCH ×5 (00:02→23:47)
[2021-01-01] MEDS: PERCOCET 5MG/325MG TAB PO PRN ×4 (05:20→23:51)
[2021-01-01 06:00] VITALS: BP 153/73
[2021-01-01] MEDS: HEPARIN SOD (PORCINE) 5000UNITS/ML 1ML VIAL/SYRINGE SC SCH ×3 (06:16→20:15)
[2021-01-01] MEDS: LEVOTHYROXINE 75MCG TABLET (0.075MG) PO SCH (06:17)
[2021-01-01 07:50] LABS: BASO # 0.1 10^3/uL (0.0-0.2); BASO % 1.5 % (0.0-1.0); EOS # 0.4 10^3/uL (0.0-0.5); HEMOGLOBIN 12.4 g/dl (12.0-15.5); LYMPH # 2.1 10^3/uL (1.5-5.0); LYMPH % 29.8 % (24.0-44.0); MEAN CORPUSCULAR HEMOGLOBIN 28.4 pg (27.0-33.0); MEAN CORPUSCULAR HGB CONC 31.8 g/dl (32.0-36.5); MEAN CORPUSCULAR VOLUME 89.2 fl (80.0-96.0); MONO # 1.1 10^3/uL (0.0-0.8); NEUTROPHILS # 3.4 10^3/uL (1.5-8.5); NEUTROPHILS % 47.4 % (36.0-66.0); PLATELET COUNT, AUTOMATED 185 10^3/uL (150-450); RED BLOOD COUNT 4.37 10^6/uL (4.00-5.40); WHITE BLOOD COUNT 7.1 10^3/uL (4.0-10.0)
[2021-01-01 08:09] LABS: BLOOD UREA NITROGEN 14 MG/DL (7-18); CALCIUM LEVEL 8.7 MG/DL (8.8-10.2); CARBON DIOXIDE LEVEL 21 MEQ/L (21-32); CHLORIDE LEVEL 112 MEQ/L (98-107); GLOMERULAR FILTRATION RATE > 60.0 (>45); GLUCOSE, FASTING 141 MG/DL (70-100); MAGNESIUM LEVEL 1.5 MG/DL (1.8-2.4); POTASSIUM SERUM 3.8 MEQ/L (3.5-5.1); SODIUM LEVEL 141 MEQ/L (136-145)
[2021-01-01] MEDS: HumaLOG INSULIN (NovoLOG) PER UNIT SC SCH ×4 (08:51→20:16)
[2021-01-01] MEDS: LEVEMIR (INSULIN DETEMIR) 1 UNITS/0.01ML SC SCH ×2 (08:52→20:15)
[2021-01-01] MEDS: PANTOPRAZOLE 40MG TAB (PROTONIX) PO SCH (08:52)
[2021-01-01] MEDS: ATORVASTATIN 20 MG TAB PO SCH (08:53)
[2021-01-01] MEDS: SUCRALFATE 1 GM TAB PO SCH ×3 (08:53→20:15)
[2021-01-01] MEDS: ASPIRIN 81MG ENTERIC TABLET PO SCH (08:53)
[2021-01-01] MEDS: DULoxetine 30MG CAPSULE (CYMBALTA) PO SCH (08:53)
[2021-01-01] MEDS: GABAPENTIN 100 MG CAP PO SCH ×2 (08:54→20:15)
[2021-01-01] MEDS: amLODIPine 5 MG TAB PO SCH (08:54)
[2021-01-01] MEDS: FERROUS SULFATE 325MG TAB PO SCH (08:55)
[2021-01-01] MEDS: ISOSORBIDE DIN. (ISORDIL) 20 MG TAB PO SCH ×3 (08:55→20:16)
[2021-01-01] MEDS: DOCUSATE SODIUM 100MG CAPSULE PO SCH ×2 (08:55→20:15)
[2021-01-01] MEDS: atenoloL 25 MG TAB PO SCH (08:55)
[2021-01-01] MEDS: MAG SULF 1GM/100ML (MAG RUN) 1 GM in IV 1 EA IV SCH ×2 (09:41→10:37)
[2021-01-01] MEDS: MORPHINE 4 MG/ML 1ML VIAL/SYRINGE (J2270) IV PRN (10:43)
--- NOTE | 2021-01-01 12:30 | IPNPDOC ---
Text Note Date of Service The patient was seen on 01/01/21. NOTE Subjective: Patient is a 70-year-old female with a PMHx of CAD s/p stent (2018), Diastolic CHF, HTN, IDDM2, DLP, Hypothyroidism, ARNOLD, CKD3, Fibromyalgia, and GERD and a recent admission after she had fallen and sprained her L ankle. Patient was at [facility] from 12/25-12/30 after she had fallen at home and sustained a left ankle fracture. Patient with physical therapy and was cleared for discharge home. Patient was brought by EMS to ER on 12/31 after she had fallen at home that morning and couldn't get up. Patient was admitted to the hospitalist service for further evaluation and treatment. Patient was seen and examined at the bedside. Patient sitting up in bed and she reports that her pain is better this morning. Patient denies any nausea, vomiting, abdominal pain, diarrhea, or urinary discomfort. Denies any chest pain, shortness breath or cough. She did work with physical therapy this morning. Objective: Vitals (See below) General: Lying in bed, appears comfortable, AAOx3 HEENT: NC, AT CVS: RRR, +S1S2 Lungs: Fair air entry b/l, -w/r/r Abdomen: Soft, ND, NT Extremities: LLE with boot in place, RLE without edema Imaging: XR L Ankle 12/31: Heel spurs, diffuse soft tissue swelling about the ankle, arterial calcifications throughout the lower leg and ankle region noted. Although the soft tissue swelling is greater than 12/24/2020, no visible or displaced fracture, avulsion, disruption of the mortise joint or other acute finding. XR Portable Chest 12/31: 1. No acute infiltrate, edema, atelectasis or mass. Left ventricular configuration of the heart but no gross cardiomegaly. Heart size magnified by AP supine technique. XR Femur 12/31: No fracture the femoral shaft, condyles or other visible bony structures. XR Hip 12/31: No hip fracture, subluxation or focal lesion. Stable exam from 05/15/2020. XR Pelvis 12/31: Some degenerative changes lower lumbar spine and hips but without visible fracture or other acute bony finding. XR Tib/Fib 12/31: Some degenerative changes at the knee and at the plantar calcaneal heel spur but no visible or displaced tibial or fibular fracture. Arterial calcifications in the calf. CT Head 12/31: 1. Ventriculomegaly and cortical atrophy are proportionate and age appropriate with no intracranial hemorrhage, vascular territory infarct, mass or mass ef fect. 2. Small right posterior parietal scalp hematoma with appearance similar to the previous study on 12/24/2020. There is no evidence of a skull fracture and the skull base, mastoids and sinuses are a becker were unremarkable. 3. Cerebellar atrophy noted with the brainstem unremarkable and no posterior fossa bleed. No new or acute finding. Assessment and plan: Recurrent falls - likely 2/2 deconditioning / poor stability - Recent admission from 12/25 - 12/30 and for left ankle sprain; had cleared PT and was discharged home - Presented to ER 12/31 after she had fallen again and couldn't get up - Imaging noted above - c/w Tylenol, Hydrocodone and Morphine; Will DC morphine within 24 hours - c/w Tizanidine - c/w PT / OT; patient may require rehabilitation moving forward HTN - BP better controlled this morning - c/w Amlodipine, Atenolol, Hydralazine, Isosorbide dinitrate CAD s/p stent (2018) - Denies any chest pain or palpitations - c/w ASA 81 Diastolic CHF - No evidence of exacerbation - Not on diuretics as an outpatient IDDM2 - c/w ISS and long acting insulin DLP - c/w Atorvastatin Hypothyroidism - c/w Levothyroxine ARNOLD CKD3 - Cr appears to be at baseline Fibromyalgia - c/w Gabapentin / Duloxetine GERD - c/w Protonix / Carafate DVT prophylaxis - c/w Heparin SQ Disposition: - Pending clinical improvement - c/w PT and OT VS,Fishbone, I+O VS, Fishbone, I+O Laboratory Tests 01/01/21 07:03 Vital Signs Date Time Temp Pulse Resp B/P (MAP) Pulse Ox O2 Delivery O2 Flow Rate FiO2 01/01/21 11:46 134/56 01/01/21 10:55 16 01/01/21 08:54 78 01/01/21 06:17 Room Air 01/01/21 06:00 98.3 100 12/31/20 14:25 96.0 I&O- Last 24 Hours up to 6 AM 01/01/21 06:00 Intake Total 0 ml Output Total 0 ml Balance 0 ml LEAH KHALIL MD Jan 01, 2021 12:30
[2021-01-01 14:00] VITALS: BP 125/66
[2021-01-01] MEDS ORDERED: ANALGESIC BALM CRM 3OZ TOP PRN (18:00)
[2021-01-01 22:00] VITALS: BP 118/61
[2021-01-02] MEDS: HEPARIN SOD (PORCINE) 5000UNITS/ML 1ML VIAL/SYRINGE SC SCH ×3 (05:43→22:39)
[2021-01-02] MEDS: LEVOTHYROXINE 75MCG TABLET (0.075MG) PO SCH (05:43)
[2021-01-02] MEDS: **hydrALAZINE** 10 MG TAB PO SCH ×3 (05:44→17:04)
[2021-01-02 06:00] VITALS: BP 122/53
[2021-01-02 06:51] LABS: BASO # 0.1 10^3/uL (0.0-0.2); BASO % 1.6 % (0.0-1.0); EOS # 0.4 10^3/uL (0.0-0.5); HEMATOCRIT 33.9 % (36.0-47.0); HEMOGLOBIN 10.9 g/dl (12.0-15.5); LYMPH # 1.7 10^3/uL (1.5-5.0); LYMPH % 33.7 % (24.0-44.0); MEAN CORPUSCULAR HEMOGLOBIN 28.3 pg (27.0-33.0); MEAN CORPUSCULAR HGB CONC 32.2 g/dl (32.0-36.5); MEAN CORPUSCULAR VOLUME 88.1 fl (80.0-96.0); MONO % 20.3 % (2.0-8.0); NEUTROPHILS # 1.9 10^3/uL (1.5-8.5); PLATELET COUNT, AUTOMATED 149 10^3/uL (150-450); RED BLOOD COUNT 3.85 10^6/uL (4.00-5.40); WHITE BLOOD COUNT 5.1 10^3/uL (4.0-10.0)
[2021-01-02 07:03] LABS: BLOOD UREA NITROGEN 18 MG/DL (7-18); CALCIUM LEVEL 8.7 MG/DL (8.8-10.2); CARBON DIOXIDE LEVEL 22 MEQ/L (21-32); CHLORIDE LEVEL 111 MEQ/L (98-107); CREATININE FOR GFR 0.73 MG/DL (0.55-1.30); GLOMERULAR FILTRATION RATE > 60.0 (>45); GLUCOSE, FASTING 225 MG/DL (70-100); MAGNESIUM LEVEL 1.8 MG/DL (1.8-2.4); SODIUM LEVEL 139 MEQ/L (136-145)
[2021-01-02] MEDS: DOCUSATE SODIUM 100MG CAPSULE PO SCH ×2 (09:05→20:16)
[2021-01-02] MEDS: PERCOCET 5MG/325MG TAB PO PRN ×2 (09:05→15:12)
[2021-01-02] MEDS: PANTOPRAZOLE 40MG TAB (PROTONIX) PO SCH (09:05)
[2021-01-02] MEDS: DULoxetine 30MG CAPSULE (CYMBALTA) PO SCH (09:05)
[2021-01-02] MEDS: ASPIRIN 81MG ENTERIC TABLET PO SCH (09:05)
[2021-01-02] MEDS: GABAPENTIN 100 MG CAP PO SCH ×2 (09:05→20:16)
[2021-01-02] MEDS: atenoloL 25 MG TAB PO SCH (09:06)
[2021-01-02] MEDS: FERROUS SULFATE 325MG TAB PO SCH (09:06)
[2021-01-02] MEDS: ATORVASTATIN 20 MG TAB PO SCH (09:06)
[2021-01-02] MEDS: SUCRALFATE 1 GM TAB PO SCH ×3 (09:06→20:16)
[2021-01-02] MEDS: ISOSORBIDE DIN. (ISORDIL) 20 MG TAB PO SCH ×3 (09:06→20:16)
[2021-01-02] MEDS: HumaLOG INSULIN (NovoLOG) PER UNIT SC SCH ×4 (09:07→20:17)
[2021-01-02] MEDS: amLODIPine 5 MG TAB PO SCH (09:07)
[2021-01-02] MEDS: LEVEMIR (INSULIN DETEMIR) 1 UNITS/0.01ML SC SCH ×2 (09:07→20:16)
--- NOTE | 2021-01-02 11:57 | IPNPDOC ---
Text Note Date of Service The patient was seen on 01/02/21. NOTE Subjective: Patient is a 70-year-old female with a PMHx of CAD s/p stent (2018), Diastolic CHF, HTN, IDDM2, DLP, Hypothyroidism, ARNOLD, CKD3, Fibromyalgia, and GERD and a recent admission after she had fallen and sprained her L ankle. Patient was at [facility] from 12/25-12/30 after she had fallen at home and sustained a left ankle fracture. Patient with physical therapy and was cleared for discharge home. Patient was brought by EMS to ER on 12/31 after she had fallen at home that morning and couldn't get up. Patient was admitted to the hospitalist service for further evaluation and treatment. Patient was seen and examined at the bedside. Has no new complaints this morning. Denies chest pain, shortness breath, palpitations, nausea, vomiting, abdominal pain, urinary discomfort or diarrhea. Patient continues working with physical therapy. She has not required any significant amount of morphine, will discontinue its use today. Objective: Vitals (See below) General: Patient is lying in bed, appears be comfortable without any acute distress. She is awake, alert, no recent HEENT: Normocephalic and atraumatic CVS: +S1S2 Lungs: Fair air entry b/l, no wheezing, rales or rhonchi Abdomen: Soft, nondistended, nontender Extremities: Left lower extremity with and place. Right LE without any significant edema Imaging: XR L Ankle 12/31: Heel spurs, diffuse soft tissue swelling about the ankle, arterial calcifications throughout the lower leg and ankle region noted. Although the soft tissue swelling is greater than 12/24/2020, no visible or displaced fracture, avulsion, disruption of the mortise joint or other acute finding. XR Portable Chest 12/31: 1. No acute infiltrate, edema, atelectasis or mass. Left ventricular configuration of the heart but no gross cardiomegaly. Heart size magnified by AP supine technique. XR Femur 12/31: No fracture the femoral shaft, condyles or other visible bony structures. XR Hip 12/31: No hip fracture, subluxation or focal lesion. Stable exam from 05/15/2020. XR Pelvis 12/31: Some degenerative changes lower lumbar spine and hips but without visible fracture or other acute bony finding. XR Tib/Fib 12/31: Some degenerative changes at the knee and at the plantar calcaneal heel spur but no visible or displaced tibial or fibular fracture. Arterial calcifications in the calf. CT Head 12/31: 1. Ventriculomegaly and cortical atrophy are proportionate and age appropriate with no intracranial hemorrhage, vascular territory infarct, mass or mass effect. 2. Small right posterior parietal scalp hematoma with appearance similar to the previous study on 12/24/2020. There is no evidence of a skull fracture and the skull base, mastoids and sinuses are a becker were unremarkable. 3. Cerebellar atrophy noted with the brainstem unremarkable and no posterior fossa bleed. No new or acute finding. Assessment and plan: Recurrent falls - likely 2/2 deconditioning / poor stability - Recent admission from 12/25 - 12/30 and for left ankle sprain; had cleared PT and was discharged home - Presented to ER 12/31 after she had fallen again and couldn't get up - Imaging noted above - c/w Tylenol, Tizanidine and Hydrocodone; Will DC Morphine today - c/w PT / OT; patient may require rehabilitation moving forward HTN - BP is normotensive currently - c/w Amlodipine, Atenolol, Hydralazine, Isosorbide dinitrate CAD s/p stent (2018) - Denies any chest pain or palpitations - c/w ASA 81 Diastolic CHF - No evidence of exacerbation - Not on diuretics as an outpatient IDDM2 - c/w ISS and long acting insulin DLP - c/w Atorvastatin Hypothyroidism - c/w Levothyroxine ARNOLD CKD3 - Cr appears to be at baseline Fibromyalgia - c/w Gabapentin / Duloxetine GERD - c/w Protonix / Carafate DVT prophylaxis - c/w Heparin SQ Disposition: - Pending clinical improvement - c/w PT and OT VS,Fishbone, I+O VS, Fishbone, I+O Laboratory Tests 01/02/21 06:19 Vital Signs Date Time Temp Pulse Resp B/P (MAP) Pulse Ox O2 Delivery O2 Flow Rate FiO2 01/02/21 09:35 18 01/02/21 09:07 77 122/64 01/02/21 06:00 98.6 97 Room Air 12/31/20 14:25 96.0 I&O- Last 24 Hours up to 6 AM 01/02/21 05:59 Intake Total 2060 ml Output Total 2850 ml Balance -790 ml LEAH KHALIL MD Jan 02, 2021 11:57
[2021-01-02 19:23] VITALS: BP 152/62
[2021-01-03] MEDS: **hydrALAZINE** 10 MG TAB PO SCH ×4 (00:44→17:02)
[2021-01-03] MEDS: LEVOTHYROXINE 75MCG TABLET (0.075MG) PO SCH (05:28)
[2021-01-03] MEDS: HEPARIN SOD (PORCINE) 5000UNITS/ML 1ML VIAL/SYRINGE SC SCH ×3 (05:28→21:33)
[2021-01-03 06:09] VITALS: BP 168/69
[2021-01-03 06:46] LABS: BASO # 0.1 10^3/uL (0.0-0.2); BASO % 0.9 % (0.0-1.0); EOS # 0.3 10^3/uL (0.0-0.5); EOS % 4.7 % (0.0-3.0); HEMOGLOBIN 11.7 g/dl (12.0-15.5); LYMPH # 1.6 10^3/uL (1.5-5.0); MEAN CORPUSCULAR HEMOGLOBIN 28.9 pg (27.0-33.0); MEAN CORPUSCULAR HGB CONC 33.4 g/dl (32.0-36.5); MEAN CORPUSCULAR VOLUME 86.4 fl (80.0-96.0); MONO # 0.8 10^3/uL (0.0-0.8); MONO % 15.7 % (2.0-8.0); NEUTROPHILS # 2.6 10^3/uL (1.5-8.5); NEUTROPHILS % 49.5 % (36.0-66.0); PLATELET COUNT, AUTOMATED 150 10^3/uL (150-450); RED BLOOD COUNT 4.05 10^6/uL (4.00-5.40); WHITE BLOOD COUNT 5.3 10^3/uL (4.0-10.0)
[2021-01-03 06:56] LABS: BLOOD UREA NITROGEN 16 MG/DL (7-18); CALCIUM LEVEL 8.8 MG/DL (8.8-10.2); CARBON DIOXIDE LEVEL 20 MEQ/L (21-32); CHLORIDE LEVEL 113 MEQ/L (98-107); CREATININE FOR GFR 0.56 MG/DL (0.55-1.30); GLOMERULAR FILTRATION RATE > 60.0 (>45); GLUCOSE, FASTING 203 MG/DL (70-100); MAGNESIUM LEVEL 1.4 MG/DL (1.8-2.4); POTASSIUM SERUM 3.6 MEQ/L (3.5-5.1); SODIUM LEVEL 141 MEQ/L (136-145)
[2021-01-03] MEDS: GABAPENTIN 100 MG CAP PO SCH ×2 (08:33→21:32)
[2021-01-03] MEDS: ISOSORBIDE DIN. (ISORDIL) 20 MG TAB PO SCH ×3 (08:33→21:32)
[2021-01-03] MEDS: amLODIPine 5 MG TAB PO SCH (08:34)
[2021-01-03] MEDS: SUCRALFATE 1 GM TAB PO SCH ×3 (08:34→21:32)
[2021-01-03] MEDS: ASPIRIN 81MG ENTERIC TABLET PO SCH (08:34)
[2021-01-03] MEDS: DULoxetine 30MG CAPSULE (CYMBALTA) PO SCH (08:34)
[2021-01-03] MEDS: atenoloL 25 MG TAB PO SCH (08:34)
[2021-01-03] MEDS: DOCUSATE SODIUM 100MG CAPSULE PO SCH ×2 (08:37→21:32)
[2021-01-03] MEDS: ATORVASTATIN 20 MG TAB PO SCH (08:37)
[2021-01-03] MEDS: FERROUS SULFATE 325MG TAB PO SCH (08:37)
[2021-01-03] MEDS: HumaLOG INSULIN (NovoLOG) PER UNIT SC SCH ×4 (08:37→21:33)
[2021-01-03] MEDS: PANTOPRAZOLE 40MG TAB (PROTONIX) PO SCH (08:37)
[2021-01-03] MEDS: LEVEMIR (INSULIN DETEMIR) 1 UNITS/0.01ML SC SCH ×2 (08:38→21:33)
[2021-01-03] MEDS: PERCOCET 5MG/325MG TAB PO PRN ×2 (08:40→17:01)
[2021-01-03] MEDS: MAGNESIUM OXIDE 400MG TAB (MAG-OX) PO SCH (12:45)
--- NOTE | 2021-01-03 14:05 | IPNPDOC ---
Text Note Date of Service The patient was seen on 01/03/21. NOTE Subjective: Patient is a 70-year-old female with past medical history of coronary artery disease status post stenting thousand 18, diastolic CHF, hypertension, insulin-dependent diabetes type 2, dyslipidemia, hypothyroidism, ARNOLD, CKD 3, fibromyalgia, and GERD who had a recent admission after she had fallen and sprained her left ankle. Patient was at [facility] on after she had fallen at home and sustained a left ankle sprain. Patient worked physical therapy and is cleared for discharge home. Patient was brought to the emergency department by EMS on 12/31/2020 after she had fallen at home that morning and could not get up. Patient was admitted to the hospital service for further evaluation. Patient states that her left leg is bothering her she believes it is a flare of her fibromyalgia but is otherwise feeling well today. Review of systems: General: Patient denies fevers HEENT: Patient denies headaches Cardiovascular: Patient denies chest pain Respiratory: Patient denies shortness of breath, cough GI: Patient denies abdominal pain, nausea, vomiting, diarrhea Physical exam: Vitals: See below General: Alert and oriented female patient who was sitting up in bed when I walked in. Patient not appear to be in any acute distress. HEENT: Normocephalic, atraumatic, moist mucous membranes. Neck: No lymphadenopathy or thyromegaly Cardiac: Regular rate and rhythm, no murmurs, normal S1, normal S2 Pulm: Clear to auscultation bilaterally. No wheezes, rhonchi, rales Abd: Nondistended, nontender to palpation, normal bowel sounds Ext: No edema bilateral lower extremities Labs: See below Imaging: No new imaging is been performed Assessment/plan: 70-year-old female who presented to the hospital after a recurrent fall likely secondary to deconditioning. 1. Recurrent falls likely secondary to deconditioning/poor stability. Patient had a recent admission had been cleared for PT and presented to the emergency department the next day. Continue with Tylenol, tizanidine and hydrocodone. Continue with PT and OT. 2. Hypertension. Continue home medications. 3. Coronary artery disease status post stenting thousand 18. Denies any chest pain. Continue aspirin 81 mg. 4. Heart failure with preserved ejection fraction. No evidence of exacerbation. Not on diuretics as an outpatient. 5. Insulin-dependent diabetes mellitus. Continue with sliding scale and long- acting insulin. 6. Dyslipidemia. Continue atorvastatin. 7. Hypothyroidism. Continue with levothyroxine. 8. Arnold. Continue outpatient treatment. 9. CKD 3. Creatinine appears to be at baseline. 10. Fibromyalgia. Continue gabapentin and duloxetine. 11. GERD. Continue Protonix and Carafate. DVT Prophylaxis: Heparin Disposition: Pending placement in subacute rehab. Patient will be made ALC status today. VS,Raye, I+O VS, Raye, I+O Laboratory Tests 01/03/21 06:29 Vital Signs Date Time Temp Pulse Resp B/P (MAP) Pulse Ox O2 Delivery O2 Flow Rate FiO2 01/03/21 12:44 168/69 01/03/21 09:10 16 01/03/21 08:34 86 01/03/21 06:09 98.4 96 Room Air 12/31/20 14:25 96.0 I&O- Last 24 Hours up to 6 AM 01/03/21 06:00 Intake Total 2010 ml Output Total 1400 ml Balance 610 ml SREEDHAR BONE DO Jan 03, 2021 14:05
[2021-01-04] MEDS: **hydrALAZINE** 10 MG TAB PO SCH ×4 (00:20→18:00)
[2021-01-04] MEDS: PERCOCET 5MG/325MG TAB PO PRN ×3 (00:21→21:11)
[2021-01-04 06:00] VITALS: BP 163/64
[2021-01-04] MEDS: HEPARIN SOD (PORCINE) 5000UNITS/ML 1ML VIAL/SYRINGE SC SCH ×3 (06:25→21:12)
[2021-01-04] MEDS: LEVOTHYROXINE 75MCG TABLET (0.075MG) PO SCH (06:25)
[2021-01-04 07:11] LABS: BLOOD UREA NITROGEN 17 MG/DL (7-18); CALCIUM LEVEL 8.6 MG/DL (8.8-10.2); CARBON DIOXIDE LEVEL 20 MEQ/L (21-32); CHLORIDE LEVEL 112 MEQ/L (98-107); CREATININE FOR GFR 0.57 MG/DL (0.55-1.30); GLOMERULAR FILTRATION RATE > 60.0 (>45); GLUCOSE, FASTING 172 MG/DL (70-100); MAGNESIUM LEVEL 1.6 MG/DL (1.8-2.4); POTASSIUM SERUM 3.6 MEQ/L (3.5-5.1); SODIUM LEVEL 140 MEQ/L (136-145)
[2021-01-04 07:19] LABS: BASO # 0.1 10^3/uL (0.0-0.2); EOS # 0.4 10^3/uL (0.0-0.5); EOS % 6.2 % (0.0-3.0); HEMOGLOBIN 11.5 g/dl (12.0-15.5); LYMPH # 2.1 10^3/uL (1.5-5.0); LYMPH % 35.1 % (24.0-44.0); MEAN CORPUSCULAR HEMOGLOBIN 28.5 pg (27.0-33.0); MEAN CORPUSCULAR HGB CONC 32.9 g/dl (32.0-36.5); MEAN CORPUSCULAR VOLUME 86.8 fl (80.0-96.0); MONO # 0.9 10^3/uL (0.0-0.8); MONO % 15.4 % (2.0-8.0); NEUTROPHILS # 2.6 10^3/uL (1.5-8.5); PLATELET COUNT, AUTOMATED 174 10^3/uL (150-450); RED BLOOD COUNT 4.03 10^6/uL (4.00-5.40); WHITE BLOOD COUNT 6.1 10^3/uL (4.0-10.0)
[2021-01-04] MEDS: HumaLOG INSULIN (NovoLOG) PER UNIT SC SCH ×4 (08:04→21:00)
[2021-01-04] MEDS: DULoxetine 30MG CAPSULE (CYMBALTA) PO SCH (08:05)
[2021-01-04] MEDS: FERROUS SULFATE 325MG TAB PO SCH (08:05)
[2021-01-04] MEDS: SUCRALFATE 1 GM TAB PO SCH ×3 (08:05→21:11)
[2021-01-04] MEDS: DOCUSATE SODIUM 100MG CAPSULE PO SCH ×2 (08:05→21:11)
[2021-01-04] MEDS: ASPIRIN 81MG ENTERIC TABLET PO SCH (08:05)
[2021-01-04] MEDS: ISOSORBIDE DIN. (ISORDIL) 20 MG TAB PO SCH ×3 (08:06→21:11)
[2021-01-04] MEDS: MAGNESIUM OXIDE 400MG TAB (MAG-OX) PO SCH (08:06)
[2021-01-04] MEDS: GABAPENTIN 100 MG CAP PO SCH ×2 (08:06→21:10)
[2021-01-04] MEDS: LEVEMIR (INSULIN DETEMIR) 1 UNITS/0.01ML SC SCH ×2 (08:06→21:12)
[2021-01-04 09:00] VITALS: BP 148/67
[2021-01-04] MEDS: ATORVASTATIN 20 MG TAB PO SCH (10:59)
[2021-01-04] MEDS: atenoloL 25 MG TAB PO SCH (11:01)
[2021-01-04] MEDS: PANTOPRAZOLE 40MG TAB (PROTONIX) PO SCH (11:01)
[2021-01-04] MEDS: amLODIPine 5 MG TAB PO SCH (11:01)
--- NOTE | 2021-01-04 13:43 | DS.PDOC ---
Discharge Summary General Date of Admission Dec 31, 2020 at 15:30 Date of Discharge 01/05/2021 Primary Care Physician: YAYA LACY MD Attending Physician: SREEDHAR BONE DO Discharge Summary PROCEDURES PERFORMED DURING STAY: None. ADMITTING DIAGNOSES: 1. Recurrent falls likely secondary to deconditioning. 2. Hypertension 3. Coronary artery disease status post stenting 2017 5. Dyslipidemia 4. Diastolic CHF 5. Insulin-dependent diabetes mellitus type 2 6. Dyslipidemia 7. Hypothyroidism 8. Arnold 9. CKD stage III 10. Fibromyalgia 11. GERD DISCHARGE DIAGNOSES: 1. Recurrent falls likely secondary to deconditioning. 2. Hypertension 3. Coronary artery disease status post stenting 2017 5. Dyslipidemia 4. Diastolic CHF 5. Insulin-dependent diabetes mellitus type 2 6. Dyslipidemia 7. Hypothyroidism 8. Arnold 9. CKD stage III 10. Fibromyalgia 11. GERD COMPLICATIONS/CHIEF COMPLAINT: Fall, Left Leg Pain. HISTORY OF PRESENT ILLNESS: Patient is a 70-year-old female with past medical history of coronary artery disease status post stenting in 2017, diastolic CHF, hypertension, insulin-dependent diabetes mellitus type 2, dyslipidemia, hypothyroidism, ARNOLD, CKD stage III, fibromyalgia, and GERD who had a recent admission after she had fallen and sprained her left ankle. Patient was at [facility] from 12/25/2020 until 5020 after she had fallen at home and sustained a left ankle fracture. Patient worked with physical therapy and was cleared for discharge home. Patient presented to the emergency department 12/31/2020 after he had fallen at home. Patient reported around 8 AM she was ambulating with her walker and she try to get into her chair. She reports her left knee gave out and she fell onto her bottom. Patient denies any head trauma loss consciousness. She was unable to get up so she contacted EMS for further assistance. Upon arrival to the emergency room, patient was reporting significant left knee to left ankle pain. Some improvement noted with morphine and aggravated with movement and walking. She denies any chest pain, shortness of breath, cough, nausea, vomiting, abdominal pain, constipation, diarrhea, urinary discomfort. Last bowel movement was yesterday. HOSPITAL COURSE: Patient worked with physical therapy throughout her hospitalization. No further injuries were found and the patient was initially brought into the emergency department. Patient did well with pain medications including Tylenol, tizanidine, and hydrocodone. Morphine was DC'd a few days prior to discharge. Patient has been doing well and was medically cleared for discharge awaiting placement in a rehab facility on 01/03/2021. A bed was found on 01/04/2021 and the patient was able to be discharged to [facility] in [place], [place] on 01/04/2021 however, transportation could not be arranged. Patient was kept in the hospital 1 additional night was discharged early in the morning on 01/05/2021 to [facility] in [place], [place]. DISCHARGE MEDICATIONS: Please see below. ALLERGIES: Please see below. PHYSICAL EXAMINATION ON DISCHARGE: VITAL SIGNS: Please see below. General: Alert and oriented female patient who was sitting on the couch in the room getting dressed when I walked in. Patient not appear to be in acute distress. HEENT: Normocephalic, atraumatic, moist mucous membranes. Neck: No lymphadenopathy or thyromegaly Cardiac: Regular rate and rhythm, no murmurs, normal S1, normal S2 Pulm: Clear to auscultation bilaterally. No wheezes, rhonchi, rales Abd: Nondistended, nontender to palpation, normal bowel sounds Ext: No edema bilateral lower extremities. Tenderness to palpation of the bilateral legs secondary to what patient says her fibromyalgia. LABORATORY DATA: Please see below. IMAGING: Left ankle x-ray performed on 12/31/2020 was reported to show heel spurs, diffuse soft tissue swelling about the ankle, arterial calcifications throughout the lower leg and ankle region noted. Although the soft tissue swelling is greater than 12/24/2020, no visible displaced fracture, avulsion, disruption of the mortise joint or other acute finding. Chest x-ray performed on 12/31/2020 is reported to show no acute infiltrate, edema, atelectasis or mass. Left ventricular configuration of the heart but no gross cardiomegaly. Heart size magnified by AP supine technique. Left femur x-ray performed on 12/31/2020 is reported to show no fracture of the femoral shaft, condyles or other visible bony structures. Left hip x-ray performed on 12/31/2020 is reported to show no hip fracture consultation or focal lesion. Stable exam from 05/15/2020. AP pelvis x-ray performed on 12/31/2020 was reported to show some degenerative changes in the lower lumbar spine and hips but without visible fracture or other acute bony finding. Left tibia and fibular x-ray performed on 12/31/2020 is reported to show some degenerative changes at the knee at the plantar calcaneal heel spur but no visi ble or displaced tibial or fibular fracture. Arterial calcification in the calf. CT of the head performed without contrast on 12/31/2020 was reported to show ventriculomegaly and cortical atrophy are proportional and age-appropriate with no intracranial hemorrhage, vascular territory infarct, mass or mass-effect. Small right posterior parietal scalp hematoma with appearance similar to previous study on 12/24/2020. There is no evidence of a skull fracture in the skull bases, mastoids and sinuses were unremarkable. Cerebellar atrophy noted with the brainstem unremarkable and no posterior fossa bleeding. No new or acute finding. PROGNOSIS: Fair ACTIVITY: As tolerated. DIET: Consistent carbohydrate DISCHARGE PLAN: Discharge to [facility] in [place], [place] DISPOSITION: . DISCHARGE INSTRUCTIONS: 1. Follow-up with provider at [facility] 2. Return the emerge department if symptoms worsen ITEMS TO FOLLOWUP ON ON OUTPATIENT: 1. None. DISCHARGE CONDITION: Stable. TIME SPENT ON DISCHARGE: 35 minutes. Vital Signs/I&Os Vital Signs Date Time Temp Pulse Resp B/P (MAP) Pulse Ox O2 Delivery O2 Flow Rate FiO2 01/04/21 12:30 162/68 01/04/21 09:00 98.2 87 16 98 Room Air 12/31/20 14:25 96.0 I&O- Last 24 Hours up to 6 AM 01/04/21 05:59 Intake Total 2110 ml Output Total 2100 ml Balance 10 ml Laboratory Data Labs 24H Laboratory Tests 2 01/03/21 16:26: Bedside Glucose (Misc Panel) 290H 01/03/21 20:20: Bedside Glucose (Misc Panel) 305H 01/04/21 06:41: Immature Granulocyte % (Auto) 0.3, Neutrophils (%) (Auto) 42.0, Lymphocytes (%) (Auto) 35.1, Monocytes (%) (Auto) 15.4H, Eosinophils (%) (Auto) 6.2H, Basophils (%) (Auto) 1.0, Neutrophils # (Auto) 2.6, Lymphocytes # (Auto) 2.1, Monocytes # (Auto) 0.9H, Eosinophils # (Auto) 0.4, Basophils # (Auto) 0.1, Nucleated Red B lood Cells % (auto) 0.0, Anion Gap 8, Glomerular Filtration Rate > 60.0, Calcium Level 8.6L, Magnesium Level 1.6L 01/04/21 11:34: Bedside Glucose (Misc Panel) 262H 01/04/21 12:24: Coronavirus (COVID-19)(PCR) NEGATIVE CBC/BMP Laboratory Tests 01/04/21 06:41 FSBS Laboratory Tests Test 01/03/21 16:26 01/03/21 20:20 01/04/21 11:34 Range/Units Bedside Glucose (Misc Panel) 290 305 262 80-115 MG/DL Discharge Medications Scheduled Amlodipine Besylate (Norvasc) 5 Mg Tablet, 5 MG PO DAILY, (Reported) Aspirin (Aspirin EC) 81 Mg Tablet.dr, 81 MG PO DAILY, (Reported) Atenolol (Atenolol) 25 Mg Tablet, 25 MG PO DAILY, (Reported) Atorvastatin Calcium (Atorvastatin Calcium) 20 Mg Tab, 20 MG PO DAILY, (Reported) Duloxetine HCl (Duloxetine HCl) 60 Mg Capsule.dr, 60 MG PO DAILY, (Reported) Empagliflozin (Jardiance) 10 Mg Tablet, 10 MG PO DAILY, (Reported) Ferrous Sulfate (Ferrous Sulfate) 325 Mg Tablet.dr, 325 MG PO DAILY, (Reported) Gabapentin (Gabapentin) 100 Mg Capsule, 100 MG PO BID, (Reported) Insulin Detemir (Levemir Flextouch) 100 Unit/1 Ml Insuln.pen, 26 UNITS SUBQ BID, (Reported) Insulin Human Lispro (Novolog) 100 Unit/1 Ml Vial, 1 DOSE SC TID, (Reported) PER SLIDING SCALE Isosorbide Dinitrate (Isosorbide Dinitrate) 20 Mg Tablet, 20 MG PO TID, (Reported) Levothyroxine Sodium (Levothyroxine Sodium) 75 Mcg Tablet, 75 MCG PO DAILY, (Reported) Metformin HCl (Metformin HCl ER) 500 Mg Tab.er.24h, 1,000 MG PO BID, (Reported) Pantoprazole Sodium (Pantoprazole Sodium) 40 Mg Tablet.dr, 40 MG PO DAILY, (Reported) Sucralfate (Sucralfate) 1 Gm Tablet, 1 GM PO TID, (Reported) Scheduled PRN Hydralazine HCl (Hydralazine HCl) 10 Mg Tablet, 10 MG PO QID PRN for SBP > 150, (Reported) Hydrocodone/Acetaminophen (Hydrocodone-Acetamin 7.5-325) 1 Each Tablet, 1 TAB PO TIDP PRN for pain Tizanidine HCl (Tizanidine HCl) 4 Mg Cap, 4 MG PO BID PRN for MUSCLE SPASMS, (Reported) Allergies Coded Allergies: gatifloxacin (Verified Allergy, Mild, 05/30/20) SREEDHAR BONE DO Jan 04, 2021 13:43
[2021-01-04 14:15] VITALS: BP 132/61
[2021-01-05 06:00] VITALS: BP 174/78
[2021-01-05 06:12] VITALS: BP 174/78
[2021-01-05] MEDS: **hydrALAZINE** 10 MG TAB PO SCH ×2 (06:12)
[2021-01-05] MEDS: HEPARIN SOD (PORCINE) 5000UNITS/ML 1ML VIAL/SYRINGE SC SCH (06:12)
[2021-01-05] MEDS: LEVOTHYROXINE 75MCG TABLET (0.075MG) PO SCH (06:12)
[2021-01-05 06:29] LABS: BASO # 0.1 10^3/uL (0.0-0.2); BASO % 1.5 % (0.0-1.0); EOS # 0.3 10^3/uL (0.0-0.5); EOS % 5.8 % (0.0-3.0); HEMATOCRIT 35.9 % (36.0-47.0); HEMOGLOBIN 11.6 g/dl (12.0-15.5); LYMPH % 37.3 % (24.0-44.0); MEAN CORPUSCULAR HEMOGLOBIN 28.3 pg (27.0-33.0); MEAN CORPUSCULAR HGB CONC 32.3 g/dl (32.0-36.5); MEAN CORPUSCULAR VOLUME 87.6 fl (80.0-96.0); MONO # 0.7 10^3/uL (0.0-0.8); MONO % 13.3 % (2.0-8.0); NEUTROPHILS # 2.2 10^3/uL (1.5-8.5); NEUTROPHILS % 41.9 % (36.0-66.0); PLATELET COUNT, AUTOMATED 170 10^3/uL (150-450); WHITE BLOOD COUNT 5.3 10^3/uL (4.0-10.0)
[2021-01-05 06:55] LABS: BLOOD UREA NITROGEN 12 MG/DL (7-18); CALCIUM LEVEL 8.5 MG/DL (8.8-10.2); CARBON DIOXIDE LEVEL 24 MEQ/L (21-32); CHLORIDE LEVEL 114 MEQ/L (98-107); CREATININE FOR GFR 0.49 MG/DL (0.55-1.30); GLOMERULAR FILTRATION RATE > 60.0 (>45); GLUCOSE, FASTING 177 MG/DL (70-100); MAGNESIUM LEVEL 1.5 MG/DL (1.8-2.4); POTASSIUM SERUM 3.7 MEQ/L (3.5-5.1); SODIUM LEVEL 144 MEQ/L (136-145)
[2021-01-05] MEDS: HumaLOG INSULIN (NovoLOG) PER UNIT SC SCH (08:39)
[2021-01-05] MEDS: PERCOCET 5MG/325MG TAB PO PRN (08:40)
[2021-01-05] MEDS: DOCUSATE SODIUM 100MG CAPSULE PO SCH (08:40)
[2021-01-05] MEDS: MAGNESIUM OXIDE 400MG TAB (MAG-OX) PO SCH (08:40)
[2021-01-05] MEDS: ATORVASTATIN 20 MG TAB PO SCH (08:40)
[2021-01-05] MEDS: ASPIRIN 81MG ENTERIC TABLET PO SCH (08:40)
[2021-01-05] MEDS: atenoloL 25 MG TAB PO SCH (08:41)
[2021-01-05] MEDS: PANTOPRAZOLE 40MG TAB (PROTONIX) PO SCH (08:41)
[2021-01-05] MEDS: amLODIPine 5 MG TAB PO SCH (08:41)
[2021-01-05] MEDS: GABAPENTIN 100 MG CAP PO SCH (08:41)
[2021-01-05] MEDS: SUCRALFATE 1 GM TAB PO SCH (08:41)
[2021-01-05] MEDS: ISOSORBIDE DIN. (ISORDIL) 20 MG TAB PO SCH (08:42)
[2021-01-05] MEDS: FERROUS SULFATE 325MG TAB PO SCH (08:42)
[2021-01-05] MEDS: DULoxetine 30MG CAPSULE (CYMBALTA) PO SCH (08:42)
[2021-01-05] MEDS: LEVEMIR (INSULIN DETEMIR) 1 UNITS/0.01ML SC SCH (08:43)
== END 2021-01-05 08:55 | DRG 92 ==
LOC: M ED 11:29 → EDBD 11:29 → M ED INP 15:30 → ENRESERV 01-01 04:58 → M MS5PR 01-01 05:40
PROVIDERS: ADMIT Internal Medicine; ATTEND Family Medicine
DX: R29.6 Repeated falls (principal); I50.32 Chronic diastolic (congestive) heart failure; I13.0 Hypertensive heart and chronic kidney disease with heart failure and stage 1 through stage 4 chronic kidney disease, or unspecified chronic kidney disease; I25.10 Atherosclerotic heart disease of native coronary artery without angina pectoris; E11.22 Type 2 diabetes mellitus with diabetic chronic kidney disease; E78.5 Hyperlipidemia, unspecified; E03.9 Hypothyroidism, unspecified; K75.81 Nonalcoholic steatohepatitis (NASH); M79.7 Fibromyalgia; K21.9 Gastro-esophageal reflux disease without esophagitis; Z95.5 Presence of coronary angioplasty implant and graft; Z98.41 Cataract extraction status, right eye; Z98.42 Cataract extraction status, left eye; Z90.49 Acquired absence of other specified parts of digestive tract; Z87.891 Personal history of nicotine dependence; Z79.4 Long term (current) use of insulin; Z20.822 Contact with and (suspected) exposure to COVID-19; Z79.82 Long term (current) use of aspirin; Z79.899 Other long term (current) drug therapy; Z88.1 Allergy status to other antibiotic agents

== ENCOUNTER → 2021-04-07 | Outpatient (CLI) | payer MEDICARE, MEDICAID ==
[~2021-04-07] MED LIST changes: +HYDR10TAB PO; +ISOS20TA4 PO; -ISOS20TAB PO; -LISI-898 PO; +LISI5TAB11 PO; +LOSA100T45 PO; -LOSA100T50 PO; +LOSA50TA28 PO; -LOSA50TA88 PO; +NORV5TAB PO
[2021-04-07 17:48] LABS: BLOOD UREA NITROGEN 22 MG/DL (7-18); CALCIUM LEVEL 8.8 MG/DL (8.8-10.2); CARBON DIOXIDE LEVEL 26 MEQ/L (21-32); CHLORIDE LEVEL 106 MEQ/L (98-107); CREATININE FOR GFR 0.69 MG/DL (0.55-1.30); GLOMERULAR FILTRATION RATE > 60.0 (>45); GLUCOSE, FASTING 377 MG/DL (70-100); POTASSIUM SERUM 4.3 MEQ/L (3.5-5.1); SODIUM LEVEL 139 MEQ/L (136-145)
[2021-04-07 17:53] LABS: HEMOGLOBIN A1c 8.9 %
== END ==
LOC: M PLALAB 14:06
PROVIDERS: ATTEND Family Medicine
DX: E11.8 Type 2 diabetes mellitus with unspecified complications (principal); E03.9 Hypothyroidism, unspecified; I10 Essential (primary) hypertension

== ENCOUNTER → 2021-04-25 | Outpatient (CLI) | payer MEDICARE, MEDICAID | LOC: M PLALAB 11:11 | PROVIDERS: ATTEND Family Medicine | DX: K76.0 Fatty (change of) liver, not elsewhere classified (principal); K74.69 Other cirrhosis of liver ==

== ENCOUNTER 2021-05-22 15:24 | Emergency (ER) | payer MEDICARE, MEDICAID ==
[2021-05-22 16:01] VITALS: BP 135/58
[2021-05-22] MEDS ORDERED: BOOSTRIX/ADACEL VACCINE (DIPHTH/PERTUSS/ACELL/TETANUS) 0.5ML SYR IM ONE (18:10)
== END 2021-05-22 18:51 | disposition home or self-care (01) ==
LOC: M ED 15:24
DX: S00.01XA Abrasion of scalp, initial encounter (principal); S40.012A Contusion of left shoulder, initial encounter; S70.02XA Contusion of left hip, initial encounter; W01.0XXA Fall on same level from slipping, tripping and stumbling without subsequent striking against object, initial encounter; Y92.481 Parking lot as the place of occurrence of the external cause; Y93.9 Activity, unspecified; Y99.9 Unspecified external cause status; M85.812 Other specified disorders of bone density and structure, left shoulder; M19.012 Primary osteoarthritis, left shoulder; M47.812 Spondylosis without myelopathy or radiculopathy, cervical region; M48.02 Spinal stenosis, cervical region; E11.9 Type 2 diabetes mellitus without complications; I25.10 Atherosclerotic heart disease of native coronary artery without angina pectoris; I13.0 Hypertensive heart and chronic kidney disease with heart failure and stage 1 through stage 4 chronic kidney disease, or unspecified chronic kidney disease; I50.9 Heart failure, unspecified; N18.9 Chronic kidney disease, unspecified; E78.5 Hyperlipidemia, unspecified; M79.7 Fibromyalgia; Z95.5 Presence of coronary angioplasty implant and graft; Z88.8 Allergy status to other drugs, medicaments and biological substances; Z79.4 Long term (current) use of insulin; Z79.890 Hormone replacement therapy; Z79.899 Other long term (current) drug therapy

== ENCOUNTER 2021-06-27 16:54 | Inpatient (IN) | payer MEDICARE, MEDICAID ==
[2021-06-26] MEDS: HumaLOG INSULIN (NovoLOG) PER UNIT SC SCH (23:30)
[~2021-06-27] VITALS: Ht 160 cm; Wt 95.7 kg
[~2021-06-27 16:54] MED LIST changes: +ATEN100T PO; +FURO40TA2 PO; +LEVE1INJ5 SC; -LEVE1INJ5 SUBQ; +LISI20TA33 PO; +LISI20TA35 PO; +METF500T13 PO; +METO25TA PO; +MUCI600T31 PO; +POTA-151 PO; +SYNT88TA2 PO; +TRUL10IN SC
[2021-06-27] MEDS ORDERED: METF10004 PO (17:28)
[2021-06-27 18:56] LABS: BASO # 0.1 10^3/uL (0.0-0.2); BASO % 1.4 % (0.0-1.0); EOS # 0.7 10^3/uL (0.0-0.5); EOS % 8.3 % (0.0-3.0); HEMATOCRIT 33.3 % (36.0-47.0); HEMOGLOBIN 10.6 g/dl (12.0-15.5); LYMPH # 2.7 10^3/uL (1.5-5.0); MEAN CORPUSCULAR HEMOGLOBIN 27.4 pg (27.0-33.0); MEAN CORPUSCULAR HGB CONC 31.8 g/dl (32.0-36.5); MONO # 1.2 10^3/uL (0.0-0.8); MONO % 13.3 % (2.0-8.0); NEUTROPHILS % 45.8 % (36.0-66.0); PLATELET COUNT, AUTOMATED 265 10^3/uL (150-450); RED BLOOD COUNT 3.87 10^6/uL (4.00-5.40); WHITE BLOOD COUNT 8.7 10^3/uL (4.0-10.0)
[2021-06-27 19:21] LABS: ALBUMIN 2.3 GM/DL (3.2-5.2); ALT/SGPT 23 U/L (12-78); BILIRUBIN,DIRECT 0.2 MG/DL (0.0-0.2); BILIRUBIN,TOTAL 0.6 MG/DL (0.2-1.0); BLOOD UREA NITROGEN 23 MG/DL (7-18); CALCIUM LEVEL 8.6 MG/DL (8.8-10.2); CARBON DIOXIDE LEVEL 24 MEQ/L (21-32); CHLORIDE LEVEL 112 MEQ/L (98-107); CREATININE FOR GFR 0.71 MG/DL (0.55-1.30); GLOMERULAR FILTRATION RATE > 60.0 (>45); GLUCOSE, FASTING 148 MG/DL (70-100); NT-PRO BNP 1720 PG/ML (<125); POTASSIUM SERUM 4.2 MEQ/L (3.5-5.1); SODIUM LEVEL 143 MEQ/L (136-145); TOTAL PROTEIN 6.1 GM/DL (6.4-8.2)
[2021-06-27 19:24] LABS: CK-MB VALUE MASS 1.9 NG/ML (<3.6); MB/CK RELATIVE INDEX 2.07 (< OR =4)
[2021-06-27] MEDS ORDERED: FUROSEMIDE 40MG/4ML VIAL (J1940) IV ONE (20:05)
[2021-06-27] MEDS ORDERED: GLUCOSE 4GM CHEW TABLET PO PRN (22:25)
[2021-06-27] MEDS ORDERED: GLUCAGON INJ 1MG VIAL SC PRN (22:25)
[2021-06-27] MEDS ORDERED: DEXTROSE 50% 50 ML SYRINGE IV PRN (22:25)
[2021-06-27 23:00] LABS: MAGNESIUM LEVEL 1.4 MG/DL (1.8-2.4)
[2021-06-27 23:28] LABS: INR 0.99; PROTHROMBIN TIME 13.5 SECONDS (12.7-14.5)
[2021-06-27 23:29] LABS: PARTIAL THROMBOPLASTIN TIME 28.2 SECONDS (25.9-37.0)
[2021-06-27] MEDS ORDERED: TRULICITY 0.75 MG SQ ONE (23:45)
[2021-06-27 23:51] LABS: CK-MB VALUE MASS 2.3 NG/ML (<3.6); MB/CK RELATIVE INDEX 2.25 (< OR =4)
[2021-06-27] MEDS ORDERED: METF-877 PO (23:56)
[2021-06-27] MEDS ORDERED: LISI20TA33 PO (23:56)
[2021-06-27] MEDS ORDERED: POTA-151 PO (23:56)
[2021-06-27] MEDS ORDERED: SPIR-10 PO (23:56)
[2021-06-27] MEDS ORDERED: FURO40TA2 PO (23:56)
[2021-06-27] MEDS ORDERED: HYDR-4514 PO (23:56)
[2021-06-28] MEDS ORDERED: BENZONATATE 100MG CAPSULE PO PRN
[2021-06-28] MEDS ORDERED: HOME MED LIST COMPLETE! XX SCH
[2021-06-28] MEDS ORDERED: amLODIPine 5 MG TAB PO ONE
[2021-06-28] MEDS: MAGNESIUM OXIDE 400MG TAB (MAG-OX) PO SCH ×2 (00:47→14:51)
[2021-06-28] MEDS ORDERED: **hydrALAZINE** 10 MG TAB PO ONE (01:00)
[2021-06-28 01:06] LABS: FREE T4 1.28 NG/DL (0.76-1.46)
[2021-06-28] MEDS: LEVEMIR (INSULIN DETEMIR) 1 UNITS/0.01ML SC SCH ×3 (02:13→19:49)
[2021-06-28 03:24] LABS: CK-MB VALUE MASS 2.1 NG/ML (<3.6); MB/CK RELATIVE INDEX 2.44 (< OR =4)
[2021-06-28] MEDS: LEVOTHYROXINE 88MCG TABLET (0.088 MG) PO SCH (06:22)
[2021-06-28 06:48] LABS: BASO # 0.1 10^3/uL (0.0-0.2); BASO % 1.5 % (0.0-1.0); EOS # 0.7 10^3/uL (0.0-0.5); EOS % 8.5 % (0.0-3.0); HEMATOCRIT 35.9 % (36.0-47.0); HEMOGLOBIN 11.6 g/dl (12.0-15.5); LYMPH # 2.3 10^3/uL (1.5-5.0); LYMPH % 27.6 % (24.0-44.0); MEAN CORPUSCULAR HEMOGLOBIN 27.8 pg (27.0-33.0); MEAN CORPUSCULAR HGB CONC 32.3 g/dl (32.0-36.5); MEAN CORPUSCULAR VOLUME 85.9 fl (80.0-96.0); MONO % 11.7 % (2.0-8.0); NEUTROPHILS # 4.2 10^3/uL (1.5-8.5); NEUTROPHILS % 50.5 % (36.0-66.0); PLATELET COUNT, AUTOMATED 275 10^3/uL (150-450); RED BLOOD COUNT 4.18 10^6/uL (4.00-5.40); WHITE BLOOD COUNT 8.2 10^3/uL (4.0-10.0)
[2021-06-28 07:18] LABS: ALBUMIN 2.5 GM/DL (3.2-5.2); ALT/SGPT 22 U/L (12-78); BLOOD UREA NITROGEN 19 MG/DL (7-18); CALCIUM LEVEL 9.3 MG/DL (8.8-10.2); CARBON DIOXIDE LEVEL 24 MEQ/L (21-32); CHLORIDE LEVEL 112 MEQ/L (98-107); CREATININE FOR GFR 0.54 MG/DL (0.55-1.30); GLOMERULAR FILTRATION RATE > 60.0 (>45); GLUCOSE, FASTING 162 MG/DL (70-100); MAGNESIUM LEVEL 1.4 MG/DL (1.8-2.4); POTASSIUM SERUM 3.9 MEQ/L (3.5-5.1); SODIUM LEVEL 145 MEQ/L (136-145); TOTAL PROTEIN 6.7 GM/DL (6.4-8.2)
[2021-06-28 07:22] LABS: ERYTHROCYTE SEDIMENTATION RATE 51 mm/hr (0-30)
[2021-06-28] MEDS: HumaLOG INSULIN (NovoLOG) PER UNIT SC SCH ×4 (07:38→19:54)
[2021-06-28] MEDS ORDERED: amLODIPine 5 MG TAB PO SCH (09:00)
[2021-06-28] MEDS ORDERED: FUROSEMIDE 40MG/4ML VIAL (J1940) IV SCH (09:00)
[2021-06-28] MEDS: FERROUS SULFATE 325MG TAB PO SCH ×2 (09:20→19:48)
[2021-06-28] MEDS: SPIRONOLACTONE 25 MG TAB PO SCH (09:20)
[2021-06-28] MEDS: SUCRALFATE 1 GM TAB PO SCH ×3 (09:20→19:48)
[2021-06-28] MEDS: DULoxetine 30MG CAPSULE (CYMBALTA) PO SCH (09:20)
[2021-06-28] MEDS: POTASSIUM CHLORIDE 10MEQ SR TABLET PO SCH ×2 (09:21→19:49)
[2021-06-28] MEDS: atenoloL 50 MG TAB PO SCH (09:22)
[2021-06-28] MEDS: ISOSORBIDE DIN. (ISORDIL) 20 MG TAB PO SCH ×3 (09:23→17:30)
[2021-06-28] MEDS: ASPIRIN 81MG ENTERIC TABLET PO SCH (09:35)
[2021-06-28] MEDS: FUROSEMIDE 40MG/4ML VIAL (J1940) IV SCH ×2 (09:40→17:30)
[2021-06-28] MEDS: ANEXSIA, NORCO 7.5MG/325MG TABLET(HYDROCODONE/APAP) PO PRN ×2 (09:40→17:40)
[2021-06-28] MEDS: **hydrALAZINE HCL** 25 MG TAB PO SCH ×2 (12:00→17:30)
[2021-06-28] MEDS: amLODIPine 5 MG TAB PO SCH (14:51)
[2021-06-28 15:20] VITALS: BP 152/68
[2021-06-28] MEDS: ATORVASTATIN 20 MG TAB PO SCH (19:48)
[2021-06-28 20:00] VITALS: BP 142/68
[2021-06-28 22:00] VITALS: BP 142/68
[2021-06-28] MEDS: tiZANidine 4 MG TAB PO PRN (22:09)
[2021-06-29] VITALS: BP 136/60
[2021-06-29] MEDS: FUROSEMIDE 40MG/4ML VIAL (J1940) IV SCH ×4 (02:05→23:43)
[2021-06-29 04:00] VITALS: BP 130/58
[2021-06-29 05:41] LABS: BASO # 0.1 10^3/uL (0.0-0.2); BASO % 1.2 % (0.0-1.0); EOS # 0.2 10^3/uL (0.0-0.5); HEMATOCRIT 34.3 % (36.0-47.0); HEMOGLOBIN 10.8 g/dl (12.0-15.5); LYMPH # 1.6 10^3/uL (1.5-5.0); LYMPH % 20.5 % (24.0-44.0); MEAN CORPUSCULAR HEMOGLOBIN 27.5 pg (27.0-33.0); MEAN CORPUSCULAR HGB CONC 31.5 g/dl (32.0-36.5); MEAN CORPUSCULAR VOLUME 87.3 fl (80.0-96.0); MONO # 0.8 10^3/uL (0.0-0.8); MONO % 10.5 % (2.0-8.0); NEUTROPHILS # 4.9 10^3/uL (1.5-8.5); NEUTROPHILS % 64.5 % (36.0-66.0); PLATELET COUNT, AUTOMATED 251 10^3/uL (150-450); RED BLOOD COUNT 3.93 10^6/uL (4.00-5.40); WHITE BLOOD COUNT 7.6 10^3/uL (4.0-10.0)
[2021-06-29] MEDS: **hydrALAZINE HCL** 25 MG TAB PO SCH ×5 (06:00→23:39)
[2021-06-29] MEDS: LEVOTHYROXINE 88MCG TABLET (0.088 MG) PO SCH (06:07)
[2021-06-29] MEDS: ISOSORBIDE DIN. (ISORDIL) 20 MG TAB PO SCH ×3 (06:08→16:47)
[2021-06-29] MEDS: HumaLOG INSULIN (NovoLOG) PER UNIT SC SCH (07:30)
[2021-06-29 07:45] LABS: ALBUMIN 2.1 GM/DL (3.2-5.2); ALT/SGPT 17 U/L (12-78); BILIRUBIN,TOTAL 0.6 MG/DL (0.2-1.0); BLOOD UREA NITROGEN 21 MG/DL (7-18); CARBON DIOXIDE LEVEL 24 MEQ/L (21-32); CHLORIDE LEVEL 114 MEQ/L (98-107); GLOMERULAR FILTRATION RATE > 60.0 (>45); GLUCOSE, FASTING 39 MG/DL (70-100); MAGNESIUM LEVEL 1.5 MG/DL (1.8-2.4); POTASSIUM SERUM 3.6 MEQ/L (3.5-5.1); SODIUM LEVEL 145 MEQ/L (136-145); TOTAL PROTEIN 5.9 GM/DL (6.4-8.2)
[2021-06-29 08:00] VITALS: BP 148/58
[2021-06-29] MEDS: SUCRALFATE 1 GM TAB PO SCH ×3 (08:07→20:10)
[2021-06-29] MEDS: FERROUS SULFATE 325MG TAB PO SCH ×2 (08:07→20:10)
[2021-06-29] MEDS: SPIRONOLACTONE 25 MG TAB PO SCH (08:07)
[2021-06-29] MEDS: DULoxetine 30MG CAPSULE (CYMBALTA) PO SCH (08:07)
[2021-06-29] MEDS: POTASSIUM CHLORIDE 10MEQ SR TABLET PO SCH ×2 (08:08→20:10)
[2021-06-29] MEDS: ASPIRIN 81MG ENTERIC TABLET PO SCH (08:08)
[2021-06-29] MEDS: amLODIPine 5 MG TAB PO SCH (08:09)
[2021-06-29] MEDS: atenoloL 50 MG TAB PO SCH (08:09)
[2021-06-29] MEDS: LEVEMIR (INSULIN DETEMIR) 1 UNITS/0.01ML SC SCH ×3 (08:11→23:39)
[2021-06-29] MEDS ORDERED: MAG SULF 1GM/100ML (MAG RUN) 1 GM in IV 1 EA IV ONE (09:00)
[2021-06-29] MEDS: MAGNESIUM OXIDE 400MG TAB (MAG-OX) PO SCH ×2 (09:23→20:10)
[2021-06-29 12:00] VITALS: BP 122/50
[2021-06-29 16:00] VITALS: BP 152/72
[2021-06-29] MEDS: ATORVASTATIN 20 MG TAB PO SCH (20:10)
[2021-06-29] MEDS ORDERED: LEVEMIR (INSULIN DETEMIR) 1 UNITS/0.01ML SC SCH (21:00)
[2021-06-29 23:30] VITALS: BP 140/60
[2021-06-29] MEDS: tiZANidine 4 MG TAB PO PRN (23:38)
[2021-06-30] VITALS: BP 114/56
[2021-06-30 04:00] VITALS: BP 168/64
[2021-06-30 05:47] LABS: BASO # 0.1 10^3/uL (0.0-0.2); BASO % 1.1 % (0.0-1.0); EOS # 0.6 10^3/uL (0.0-0.5); EOS % 8.8 % (0.0-3.0); HEMATOCRIT 30.5 % (36.0-47.0); HEMOGLOBIN 9.8 g/dl (12.0-15.5); LYMPH # 2.3 10^3/uL (1.5-5.0); LYMPH % 35.1 % (24.0-44.0); MEAN CORPUSCULAR HEMOGLOBIN 27.6 pg (27.0-33.0); MEAN CORPUSCULAR HGB CONC 32.1 g/dl (32.0-36.5); MEAN CORPUSCULAR VOLUME 85.9 fl (80.0-96.0); MONO # 0.8 10^3/uL (0.0-0.8); NEUTROPHILS # 2.8 10^3/uL (1.5-8.5); NEUTROPHILS % 42.5 % (36.0-66.0); PLATELET COUNT, AUTOMATED 189 10^3/uL (150-450); RED BLOOD COUNT 3.55 10^6/uL (4.00-5.40); WHITE BLOOD COUNT 6.6 10^3/uL (4.0-10.0)
[2021-06-30] MEDS: LEVOTHYROXINE 88MCG TABLET (0.088 MG) PO SCH (05:50)
[2021-06-30] MEDS: **hydrALAZINE HCL** 25 MG TAB PO SCH ×3 (05:51→16:46)
[2021-06-30 06:19] LABS: ALT/SGPT 21 U/L (12-78); BILIRUBIN,TOTAL 0.5 MG/DL (0.2-1.0); BLOOD UREA NITROGEN 26 MG/DL (7-18); CALCIUM LEVEL 8.5 MG/DL (8.8-10.2); CARBON DIOXIDE LEVEL 27 MEQ/L (21-32); CHLORIDE LEVEL 112 MEQ/L (98-107); CREATININE FOR GFR 0.54 MG/DL (0.55-1.30); GLOMERULAR FILTRATION RATE > 60.0 (>45); GLUCOSE, FASTING 135 MG/DL (70-100); MAGNESIUM LEVEL 1.5 MG/DL (1.8-2.4); POTASSIUM SERUM 3.8 MEQ/L (3.5-5.1); SODIUM LEVEL 146 MEQ/L (136-145); TOTAL PROTEIN 5.6 GM/DL (6.4-8.2)
[2021-06-30] MEDS: MAG SULF 1GM/100ML (MAG RUN) 1 GM in IV 1 EA IV SCH ×2 (08:14→09:29)
[2021-06-30] MEDS: MAGNESIUM OXIDE 400MG TAB (MAG-OX) PO SCH ×2 (08:14→21:43)
[2021-06-30] MEDS: SUCRALFATE 1 GM TAB PO SCH ×3 (08:14→21:43)
[2021-06-30] MEDS: DULoxetine 30MG CAPSULE (CYMBALTA) PO SCH (08:15)
[2021-06-30] MEDS: SPIRONOLACTONE 25 MG TAB PO SCH (08:15)
[2021-06-30] MEDS: POTASSIUM CHLORIDE 10MEQ SR TABLET PO SCH ×2 (08:15→21:43)
[2021-06-30] MEDS: LEVEMIR (INSULIN DETEMIR) 1 UNITS/0.01ML SC SCH ×2 (08:15→21:43)
[2021-06-30] MEDS: FERROUS SULFATE 325MG TAB PO SCH ×2 (08:15→21:43)
[2021-06-30] MEDS: ASPIRIN 81MG ENTERIC TABLET PO SCH (08:15)
[2021-06-30 08:20] VITALS: BP 138/52
[2021-06-30] MEDS: ISOSORBIDE DIN. (ISORDIL) 20 MG TAB PO SCH ×3 (08:21→16:45)
[2021-06-30] MEDS: atenoloL 50 MG TAB PO SCH (08:23)
[2021-06-30] MEDS: FUROSEMIDE 40MG/4ML VIAL (J1940) IV SCH ×2 (10:38→16:46)
[2021-06-30 12:20] VITALS: BP 140/80
[2021-06-30 16:30] VITALS: BP 160/78
[2021-06-30 20:00] VITALS: BP 118/64
[2021-06-30] MEDS: ATORVASTATIN 20 MG TAB PO SCH (21:43)
[2021-07-01] VITALS (7 sets, daily range): BP systolic 110–160; BP diastolic 60–82
[2021-07-01] MEDS: FUROSEMIDE 40MG/4ML VIAL (J1940) IV SCH ×3 (01:32→16:45)
[2021-07-01] MEDS: tiZANidine 4 MG TAB PO PRN ×2 (01:32→23:06)
[2021-07-01] MEDS: **hydrALAZINE HCL** 25 MG TAB PO SCH ×2 (05:21)
[2021-07-01] MEDS: LEVOTHYROXINE 88MCG TABLET (0.088 MG) PO SCH (06:21)
[2021-07-01] MEDS: ISOSORBIDE DIN. (ISORDIL) 20 MG TAB PO SCH ×3 (06:21→16:45)
[2021-07-01 08:24] LABS: BASO # 0.1 10^3/uL (0.0-0.2); BASO % 1.4 % (0.0-1.0); EOS # 0.7 10^3/uL (0.0-0.5); EOS % 10.5 % (0.0-3.0); HEMATOCRIT 32.2 % (36.0-47.0); LYMPH # 2.1 10^3/uL (1.5-5.0); LYMPH % 33.5 % (24.0-44.0); MEAN CORPUSCULAR HEMOGLOBIN 27.1 pg (27.0-33.0); MEAN CORPUSCULAR HGB CONC 31.1 g/dl (32.0-36.5); MEAN CORPUSCULAR VOLUME 87.3 fl (80.0-96.0); MONO # 0.8 10^3/uL (0.0-0.8); MONO % 12.4 % (2.0-8.0); NEUTROPHILS # 2.6 10^3/uL (1.5-8.5); PLATELET COUNT, AUTOMATED 191 10^3/uL (150-450); RED BLOOD COUNT 3.69 10^6/uL (4.00-5.40); WHITE BLOOD COUNT 6.3 10^3/uL (4.0-10.0)
[2021-07-01 08:43] LABS: BLOOD UREA NITROGEN 26 MG/DL (7-18); CALCIUM LEVEL 8.2 MG/DL (8.8-10.2); CARBON DIOXIDE LEVEL 26 MEQ/L (21-32); CHLORIDE LEVEL 112 MEQ/L (98-107); CREATININE FOR GFR 0.48 MG/DL (0.55-1.30); GLOMERULAR FILTRATION RATE > 60.0 (>45); GLUCOSE, FASTING 66 MG/DL (70-100); MAGNESIUM LEVEL 1.8 MG/DL (1.8-2.4); POTASSIUM SERUM 3.9 MEQ/L (3.5-5.1); SODIUM LEVEL 144 MEQ/L (136-145)
[2021-07-01] MEDS: FERROUS SULFATE 325MG TAB PO SCH ×2 (08:50→20:49)
[2021-07-01] MEDS: DULoxetine 30MG CAPSULE (CYMBALTA) PO SCH (08:50)
[2021-07-01] MEDS: LEVEMIR (INSULIN DETEMIR) 1 UNITS/0.01ML SC SCH ×2 (08:50→20:48)
[2021-07-01] MEDS: ASPIRIN 81MG ENTERIC TABLET PO SCH (08:50)
[2021-07-01] MEDS: POTASSIUM CHLORIDE 10MEQ SR TABLET PO SCH ×2 (08:51→20:49)
[2021-07-01] MEDS: atenoloL 50 MG TAB PO SCH (08:51)
[2021-07-01] MEDS: SUCRALFATE 1 GM TAB PO SCH ×3 (08:51→20:49)
[2021-07-01] MEDS: MAGNESIUM OXIDE 400MG TAB (MAG-OX) PO SCH ×2 (08:51→20:49)
[2021-07-01] MEDS: SPIRONOLACTONE 25 MG TAB PO SCH (08:52)
[2021-07-01] MEDS: ATORVASTATIN 20 MG TAB PO SCH (20:48)
[2021-07-02] VITALS (7 sets, daily range): BP systolic 118–180; BP diastolic 60–88
[2021-07-02 05:36] LABS: BASO # 0.1 10^3/uL (0.0-0.2); BASO % 1.3 % (0.0-1.0); EOS # 0.6 10^3/uL (0.0-0.5); HEMATOCRIT 31.4 % (36.0-47.0); HEMOGLOBIN 9.8 g/dl (12.0-15.5); MEAN CORPUSCULAR HEMOGLOBIN 27.5 pg (27.0-33.0); MEAN CORPUSCULAR HGB CONC 31.2 g/dl (32.0-36.5); MEAN CORPUSCULAR VOLUME 88.2 fl (80.0-96.0); MONO # 0.8 10^3/uL (0.0-0.8); MONO % 13.2 % (2.0-8.0); NEUTROPHILS # 2.7 10^3/uL (1.5-8.5); NEUTROPHILS % 43.3 % (36.0-66.0); PLATELET COUNT, AUTOMATED 179 10^3/uL (150-450); RED BLOOD COUNT 3.56 10^6/uL (4.00-5.40); WHITE BLOOD COUNT 6.1 10^3/uL (4.0-10.0)
[2021-07-02 05:58] LABS: BLOOD UREA NITROGEN 27 MG/DL (7-18); CALCIUM LEVEL 8.3 MG/DL (8.8-10.2); CARBON DIOXIDE LEVEL 28 MEQ/L (21-32); CHLORIDE LEVEL 112 MEQ/L (98-107); CREATININE FOR GFR 0.55 MG/DL (0.55-1.30); GLOMERULAR FILTRATION RATE > 60.0 (>45); GLUCOSE, FASTING 117 MG/DL (70-100); POTASSIUM SERUM 4.1 MEQ/L (3.5-5.1); SODIUM LEVEL 144 MEQ/L (136-145)
[2021-07-02] MEDS: ISOSORBIDE DIN. (ISORDIL) 20 MG TAB PO SCH ×3 (06:29→16:32)
[2021-07-02] MEDS: LEVOTHYROXINE 88MCG TABLET (0.088 MG) PO SCH (06:29)
[2021-07-02] MEDS: atenoloL 50 MG TAB PO SCH (08:03)
[2021-07-02] MEDS: LEVEMIR (INSULIN DETEMIR) 1 UNITS/0.01ML SC SCH ×2 (08:04→20:09)
[2021-07-02] MEDS: MAGNESIUM OXIDE 400MG TAB (MAG-OX) PO SCH ×2 (08:11→20:07)
[2021-07-02] MEDS: FUROSEMIDE 40MG/4ML VIAL (J1940) IV SCH (08:11)
[2021-07-02] MEDS: POTASSIUM CHLORIDE 10MEQ SR TABLET PO SCH ×2 (08:12→20:07)
[2021-07-02] MEDS: DULoxetine 30MG CAPSULE (CYMBALTA) PO SCH (08:12)
[2021-07-02] MEDS: SPIRONOLACTONE 25 MG TAB PO SCH (08:12)
[2021-07-02] MEDS: SUCRALFATE 1 GM TAB PO SCH ×3 (08:12→20:08)
[2021-07-02] MEDS: FERROUS SULFATE 325MG TAB PO SCH ×2 (08:13→20:06)
[2021-07-02] MEDS: ASPIRIN 81MG ENTERIC TABLET PO SCH (08:13)
[2021-07-02] MEDS: TORSEMIDE 20 MG TAB PO SCH (16:31)
[2021-07-02] MEDS ORDERED: amLODIPine 5 MG TAB PO ONE (17:55)
[2021-07-02] MEDS: ATORVASTATIN 20 MG TAB PO SCH (20:08)
[2021-07-02] MEDS: tiZANidine 4 MG TAB PO PRN (22:53)
[2021-07-03] VITALS (7 sets, daily range): BP systolic 154–178; BP diastolic 68–76
[2021-07-03 04:57] LABS: BASO # 0.1 10^3/uL (0.0-0.2); BASO % 1.1 % (0.0-1.0); EOS # 0.5 10^3/uL (0.0-0.5); EOS % 7.9 % (0.0-3.0); HEMATOCRIT 34.4 % (36.0-47.0); HEMOGLOBIN 10.7 g/dl (12.0-15.5); LYMPH # 1.9 10^3/uL (1.5-5.0); LYMPH % 28.1 % (24.0-44.0); MEAN CORPUSCULAR HEMOGLOBIN 27.6 pg (27.0-33.0); MEAN CORPUSCULAR HGB CONC 31.1 g/dl (32.0-36.5); MEAN CORPUSCULAR VOLUME 88.9 fl (80.0-96.0); MONO # 0.9 10^3/uL (0.0-0.8); MONO % 13.1 % (2.0-8.0); NEUTROPHILS # 3.3 10^3/uL (1.5-8.5); NEUTROPHILS % 49.5 % (36.0-66.0); PLATELET COUNT, AUTOMATED 170 10^3/uL (150-450); RED BLOOD COUNT 3.87 10^6/uL (4.00-5.40); WHITE BLOOD COUNT 6.6 10^3/uL (4.0-10.0)
[2021-07-03] MEDS: LEVOTHYROXINE 88MCG TABLET (0.088 MG) PO SCH (05:06)
[2021-07-03] MEDS: ISOSORBIDE DIN. (ISORDIL) 20 MG TAB PO SCH ×3 (05:06→17:02)
[2021-07-03 05:18] LABS: BLOOD UREA NITROGEN 33 MG/DL (7-18); CALCIUM LEVEL 8.2 MG/DL (8.8-10.2); CARBON DIOXIDE LEVEL 26 MEQ/L (21-32); CHLORIDE LEVEL 111 MEQ/L (98-107); CREATININE FOR GFR 0.73 MG/DL (0.55-1.30); GLOMERULAR FILTRATION RATE > 60.0 (>45); GLUCOSE, FASTING 271 MG/DL (70-100); POTASSIUM SERUM 4.1 MEQ/L (3.5-5.1); SODIUM LEVEL 141 MEQ/L (136-145)
[2021-07-03] MEDS ORDERED: LevoFLOXacin IV 750 MG in IV 1 EA IV ONE (07:35)
[2021-07-03] MEDS: ALBUTEROL 90 MCG/ACT 8GM HFA INHALER INH SCH ×4 (08:00→19:26)
[2021-07-03] MEDS ORDERED: ALBUTEROL SULFATE 2.5 MG/0.5 ML INH NEB SOLN NEB ONE (08:00)
[2021-07-03] MEDS: POTASSIUM CHLORIDE 10MEQ SR TABLET PO SCH ×2 (08:03→20:26)
[2021-07-03] MEDS: DULoxetine 30MG CAPSULE (CYMBALTA) PO SCH (08:04)
[2021-07-03] MEDS: ANEXSIA, NORCO 7.5MG/325MG TABLET(HYDROCODONE/APAP) PO PRN (08:04)
[2021-07-03] MEDS: FERROUS SULFATE 325MG TAB PO SCH ×2 (08:04→20:25)
[2021-07-03] MEDS: predniSONE 20 MG TAB PO SCH (08:05)
[2021-07-03] MEDS: MAGNESIUM OXIDE 400MG TAB (MAG-OX) PO SCH ×2 (08:05→20:25)
[2021-07-03] MEDS: SPIRONOLACTONE 25 MG TAB PO SCH (08:05)
[2021-07-03] MEDS: ASPIRIN 81MG ENTERIC TABLET PO SCH (08:05)
[2021-07-03] MEDS: SUCRALFATE 1 GM TAB PO SCH ×3 (08:05→20:25)
[2021-07-03] MEDS: BENZONATATE 100MG CAPSULE PO SCH ×3 (08:06→20:25)
[2021-07-03] MEDS: LEVEMIR (INSULIN DETEMIR) 1 UNITS/0.01ML SC SCH ×2 (08:07→20:25)
[2021-07-03] MEDS: amLODIPine 5 MG TAB PO SCH (08:14)
[2021-07-03] MEDS: atenoloL 50 MG TAB PO SCH (08:28)
[2021-07-03] MEDS: LevoFLOXacin IV 750 MG in IV 1 EA IV SCH (11:08)
[2021-07-03] MEDS: IPRATROPIUM 0.5MG/ALBUTEROL 2.5MG INH SOL UD 3ML (DUONEB) NEB PRN ×2 (14:12→14:15)
[2021-07-03] MEDS: ATORVASTATIN 20 MG TAB PO SCH (20:26)
[2021-07-03] MEDS ORDERED: amLODIPine 5 MG TAB PO ONE (20:55)
[2021-07-03] MEDS: tiZANidine 4 MG TAB PO PRN (23:21)
[2021-07-04 05:05] VITALS: BP 148/79
[2021-07-04] MEDS: LEVOTHYROXINE 88MCG TABLET (0.088 MG) PO SCH (05:13)
[2021-07-04] MEDS: ISOSORBIDE DIN. (ISORDIL) 20 MG TAB PO SCH ×3 (06:22→16:17)
[2021-07-04 06:41] LABS: BASO # 0.1 10^3/uL (0.0-0.2); BASO % 0.9 % (0.0-1.0); EOS # 0.4 10^3/uL (0.0-0.5); EOS % 5.5 % (0.0-3.0); HEMATOCRIT 29.4 % (36.0-47.0); HEMOGLOBIN 9.4 g/dl (12.0-15.5); LYMPH # 2.1 10^3/uL (1.5-5.0); LYMPH % 27.7 % (24.0-44.0); MEAN CORPUSCULAR HEMOGLOBIN 27.9 pg (27.0-33.0); MEAN CORPUSCULAR VOLUME 87.2 fl (80.0-96.0); MONO # 0.9 10^3/uL (0.0-0.8); MONO % 11.9 % (2.0-8.0); NEUTROPHILS % 53.6 % (36.0-66.0); PLATELET COUNT, AUTOMATED 167 10^3/uL (150-450); RED BLOOD COUNT 3.37 10^6/uL (4.00-5.40); WHITE BLOOD COUNT 7.5 10^3/uL (4.0-10.0)
[2021-07-04 07:00] LABS: BLOOD UREA NITROGEN 35 MG/DL (7-18); CALCIUM LEVEL 7.9 MG/DL (8.8-10.2); CARBON DIOXIDE LEVEL 26 MEQ/L (21-32); CHLORIDE LEVEL 111 MEQ/L (98-107); CREATININE FOR GFR 0.63 MG/DL (0.55-1.30); GLOMERULAR FILTRATION RATE > 60.0 (>45); GLUCOSE, FASTING 185 MG/DL (70-100); POTASSIUM SERUM 3.8 MEQ/L (3.5-5.1); SODIUM LEVEL 140 MEQ/L (136-145)
[2021-07-04] MEDS: ALBUTEROL 90 MCG/ACT 8GM HFA INHALER INH SCH ×3 (07:19→19:22)
[2021-07-04] MEDS: LevoFLOXacin IV 750 MG in IV 1 EA IV SCH (08:37)
[2021-07-04] MEDS: LEVEMIR (INSULIN DETEMIR) 1 UNITS/0.01ML SC SCH ×2 (08:43→20:33)
[2021-07-04] MEDS: FERROUS SULFATE 325MG TAB PO SCH ×2 (08:44→20:33)
[2021-07-04] MEDS: ASPIRIN 81MG ENTERIC TABLET PO SCH (08:44)
[2021-07-04] MEDS: SPIRONOLACTONE 25 MG TAB PO SCH (08:44)
[2021-07-04] MEDS: DULoxetine 30MG CAPSULE (CYMBALTA) PO SCH (08:44)
[2021-07-04] MEDS: predniSONE 20 MG TAB PO SCH (08:44)
[2021-07-04] MEDS: POTASSIUM CHLORIDE 10MEQ SR TABLET PO SCH ×2 (08:44→20:34)
[2021-07-04] MEDS: MAGNESIUM OXIDE 400MG TAB (MAG-OX) PO SCH ×2 (08:45→20:33)
[2021-07-04] MEDS: BENZONATATE 100MG CAPSULE PO SCH ×3 (08:45→20:33)
[2021-07-04] MEDS: SUCRALFATE 1 GM TAB PO SCH ×3 (08:49→20:33)
[2021-07-04] MEDS: amLODIPine 5 MG TAB PO SCH (08:49)
[2021-07-04] MEDS: atenoloL 50 MG TAB PO SCH (08:49)
[2021-07-04] MEDS: TORSEMIDE 20 MG TAB PO SCH ×2 (09:28→16:16)
[2021-07-04 14:00] VITALS: BP 130/82
[2021-07-04] MEDS: ATORVASTATIN 20 MG TAB PO SCH (20:33)
[2021-07-04 22:00] VITALS: BP 172/74
[2021-07-04] MEDS: tiZANidine 4 MG TAB PO PRN (22:24)
[2021-07-04] MEDS ORDERED: amLODIPine 5 MG TAB PO ONE (23:05)
[2021-07-05] MEDS: LEVOTHYROXINE 88MCG TABLET (0.088 MG) PO SCH (05:04)
[2021-07-05 05:09] VITALS: BP 148/66
[2021-07-05 06:09] LABS: BASO # 0.1 10^3/uL (0.0-0.2); BASO % 0.8 % (0.0-1.0); EOS # 0.5 10^3/uL (0.0-0.5); EOS % 5.7 % (0.0-3.0); HEMATOCRIT 31.8 % (36.0-47.0); HEMOGLOBIN 10.2 g/dl (12.0-15.5); LYMPH # 2.8 10^3/uL (1.5-5.0); LYMPH % 31.8 % (24.0-44.0); MEAN CORPUSCULAR HGB CONC 32.1 g/dl (32.0-36.5); MEAN CORPUSCULAR VOLUME 87.4 fl (80.0-96.0); MONO # 0.9 10^3/uL (0.0-0.8); MONO % 10.8 % (2.0-8.0); NEUTROPHILS # 4.4 10^3/uL (1.5-8.5); NEUTROPHILS % 50.6 % (36.0-66.0); PLATELET COUNT, AUTOMATED 194 10^3/uL (150-450); RED BLOOD COUNT 3.64 10^6/uL (4.00-5.40); WHITE BLOOD COUNT 8.7 10^3/uL (4.0-10.0)
[2021-07-05 06:29] LABS: BLOOD UREA NITROGEN 39 MG/DL (7-18); CALCIUM LEVEL 8.6 MG/DL (8.8-10.2); CARBON DIOXIDE LEVEL 23 MEQ/L (21-32); CHLORIDE LEVEL 112 MEQ/L (98-107); CREATININE FOR GFR 0.75 MG/DL (0.55-1.30); GLOMERULAR FILTRATION RATE > 60.0 (>45); GLUCOSE, FASTING 190 MG/DL (70-100); SODIUM LEVEL 143 MEQ/L (136-145)
[2021-07-05] MEDS: ISOSORBIDE DIN. (ISORDIL) 20 MG TAB PO SCH (06:36)
[2021-07-05] MEDS: ALBUTEROL 90 MCG/ACT 8GM HFA INHALER INH SCH (08:12)
[2021-07-05] MEDS: SUCRALFATE 1 GM TAB PO SCH (08:45)
[2021-07-05] MEDS: BENZONATATE 100MG CAPSULE PO SCH (08:45)
[2021-07-05] MEDS: FERROUS SULFATE 325MG TAB PO SCH (08:45)
[2021-07-05] MEDS: ASPIRIN 81MG ENTERIC TABLET PO SCH (08:45)
[2021-07-05] MEDS: SPIRONOLACTONE 25 MG TAB PO SCH (08:46)
[2021-07-05] MEDS: TORSEMIDE 20 MG TAB PO SCH (08:46)
[2021-07-05] MEDS: predniSONE 20 MG TAB PO SCH (08:46)
[2021-07-05] MEDS: POTASSIUM CHLORIDE 10MEQ SR TABLET PO SCH (08:46)
[2021-07-05] MEDS: DULoxetine 30MG CAPSULE (CYMBALTA) PO SCH (08:46)
[2021-07-05] MEDS: MAGNESIUM OXIDE 400MG TAB (MAG-OX) PO SCH (08:47)
[2021-07-05] MEDS: LEVEMIR (INSULIN DETEMIR) 1 UNITS/0.01ML SC SCH (08:47)
[2021-07-05] MEDS: LevoFLOXacin IV 750 MG in IV 1 EA IV SCH (08:47)
[2021-07-05] MEDS: amLODIPine 5 MG TAB PO SCH (08:49)
[2021-07-05 08:50] VITALS: BP 150/68
[2021-07-05] MEDS: atenoloL 50 MG TAB PO SCH (08:52)
[2021-07-05] MEDS ORDERED: LEVO750T13 PO (09:13)
[2021-07-05] MEDS ORDERED: LevoFLOXacin 750 MG TABLET PO ONE (09:15)
[2021-07-05] MEDS ORDERED: PRED10TA2 PO (09:15)
== END 2021-07-05 11:02 | disposition home health service (06) | DRG 441 ==
LOC: EDBD 16:54 → M ED 16:54 → M ED INP 22:24 → ENRESERV 06-28 14:20 → M PCU 06-28 15:10 → M MSPAV 07-03 15:27
PROVIDERS: ADMIT Family Medicine; ATTEND Internal Medicine
DX: K75.81 Nonalcoholic steatohepatitis (NASH) (principal); I50.33 Acute on chronic diastolic (congestive) heart failure; J18.9 Pneumonia, unspecified organism; I13.0 Hypertensive heart and chronic kidney disease with heart failure and stage 1 through stage 4 chronic kidney disease, or unspecified chronic kidney disease; R18.8 Other ascites; K76.6 Portal hypertension; I25.10 Atherosclerotic heart disease of native coronary artery without angina pectoris; Z95.5 Presence of coronary angioplasty implant and graft; E11.22 Type 2 diabetes mellitus with diabetic chronic kidney disease; E78.5 Hyperlipidemia, unspecified; E03.9 Hypothyroidism, unspecified; N18.30 Chronic kidney disease, stage 3 unspecified; M79.7 Fibromyalgia; K21.9 Gastro-esophageal reflux disease without esophagitis; Z98.41 Cataract extraction status, right eye; Z98.42 Cataract extraction status, left eye; Z90.79 Acquired absence of other genital organ(s); Z90.49 Acquired absence of other specified parts of digestive tract; Z88.1 Allergy status to other antibiotic agents; Z87.891 Personal history of nicotine dependence; I16.0 Hypertensive urgency; E88.09 Other disorders of plasma-protein metabolism, not elsewhere classified; I27.20 Pulmonary hypertension, unspecified; E11.42 Type 2 diabetes mellitus with diabetic polyneuropathy; M48.061 Spinal stenosis, lumbar region without neurogenic claudication; E53.8 Deficiency of other specified B group vitamins; Z79.891 Long term (current) use of opiate analgesic; G89.29 Other chronic pain; E11.649 Type 2 diabetes mellitus with hypoglycemia without coma

== ENCOUNTER → 2021-07-31 | Outpatient (REF) | payer MEDICARE, MEDICAID ==
[~2021-07-31] MED LIST changes: +LEVO750T13 PO; +METF-877 PO; +PRED10TA2 PO
[2021-07-31 14:47] LABS: BASO # 0.1 10^3/uL (0.0-0.2); EOS # 0.5 10^3/uL (0.0-0.5); EOS % 8.5 % (0.0-3.0); HEMATOCRIT 34.8 % (36.0-47.0); HEMOGLOBIN 11.1 g/dl (12.0-15.5); LYMPH # 1.9 10^3/uL (1.5-5.0); LYMPH % 32.4 % (24.0-44.0); MEAN CORPUSCULAR HEMOGLOBIN 27.9 pg (27.0-33.0); MEAN CORPUSCULAR HGB CONC 31.9 g/dl (32.0-36.5); MEAN CORPUSCULAR VOLUME 87.4 fl (80.0-96.0); MONO # 0.7 10^3/uL (0.0-0.8); MONO % 12.1 % (2.0-8.0); NEUTROPHILS # 2.7 10^3/uL (1.5-8.5); NEUTROPHILS % 45.8 % (36.0-66.0); PLATELET COUNT, AUTOMATED 155 10^3/uL (150-450); RED BLOOD COUNT 3.98 10^6/uL (4.00-5.40); WHITE BLOOD COUNT 5.8 10^3/uL (4.0-10.0)
[2021-07-31 15:15] LABS: ALBUMIN 2.1 GM/DL (3.2-5.2); ALT/SGPT 19 U/L (12-78); BILIRUBIN,TOTAL 0.5 MG/DL (0.2-1.0); BLOOD UREA NITROGEN 27 MG/DL (7-18); CARBON DIOXIDE LEVEL 24 MEQ/L (21-32); CHLORIDE LEVEL 109 MEQ/L (98-107); CREATININE FOR GFR 0.79 MG/DL (0.55-1.30); GLOMERULAR FILTRATION RATE > 60.0 (>45); GLUCOSE, FASTING 297 MG/DL (70-100); IRON (FE) 41 UG/DL (50-170); PERCENT SATURATION 12.7 % (13.2-45.0); POTASSIUM SERUM 4.2 MEQ/L (3.5-5.1); SODIUM LEVEL 139 MEQ/L (136-145); TOTAL IRON BINDING CAPACITY 322 UG/DL (250-450); TOTAL PROTEIN 4.9 GM/DL (6.4-8.2)
[2021-07-31 15:18] LABS: TOTAL 25(OH) VITAMIN D 18.2 NG/ML (30.0-100.0)
[2021-07-31 15:19] LABS: VITAMIN B12 LEVEL 428 PG/ML (247-911)
== END ==
LOC: M SHH 14:07
PROVIDERS: ATTEND Internal Medicine Hematology
DX: K76.0 Fatty (change of) liver, not elsewhere classified (principal)

== ENCOUNTER → 2021-08-21 | Outpatient (CLI) | payer MEDICARE, MEDICAID ==
[2021-08-21 17:31] LABS: ALBUMIN 2.2 GM/DL (3.2-5.2); BILIRUBIN,TOTAL 0.7 MG/DL (0.2-1.0); CALCIUM LEVEL 9.3 MG/DL (8.8-10.2); CREATININE FOR GFR 1.2 MG/DL (0.55-1.30); GLOMERULAR FILTRATION RATE 47.4 (>45); POTASSIUM SERUM 4.7 MEQ/L (3.5-5.1); TOTAL PROTEIN 5.8 GM/DL (6.4-8.2)
[2021-08-21 18:43] LABS: HEMOGLOBIN A1c 10.7 %
== END ==
LOC: M WUC 13:04
PROVIDERS: ATTEND Internal Medicine Hematology
DX: I10 Essential (primary) hypertension (principal)

== ENCOUNTER 2021-08-31 13:23 | Emergency (ER) | payer MEDICAID, MEDICARE ==
[2021-08-31 14:22] LABS: VENOUS BASE EXCESS -1.9 (-2.0-2.0); VENOUS HCO3 23.1 MEQ/L (23.0-27.0); VENOUS O2 SATURATION 84.3 % (60.0-80.0); VENOUS PARTIAL PRESSURE O2 49.6 mmHg (30.0-50.0); VENOUS PH 7.379 UNITS (7.330-7.430); VENOUS STANDARD HCO3 22.6 MEQ/L; VENOUS TOTAL CO2 24.3 MEQ/L (24.0-28.0)
[2021-08-31 14:32] LABS: BASO # 0.1 10^3/uL (0.0-0.2); BASO % 1.3 % (0.0-1.0); EOS # 0.5 10^3/uL (0.0-0.5); EOS % 9.7 % (0.0-3.0); HEMATOCRIT 36.8 % (36.0-47.0); HEMOGLOBIN 12.6 g/dl (12.0-15.5); LYMPH # 1.8 10^3/uL (1.5-5.0); MEAN CORPUSCULAR HGB CONC 34.2 g/dl (32.0-36.5); MEAN CORPUSCULAR VOLUME 81.8 fl (80.0-96.0); MONO # 0.6 10^3/uL (0.0-0.8); MONO % 10.1 % (2.0-8.0); NEUTROPHILS # 2.6 10^3/uL (1.5-8.5); NEUTROPHILS % 45.7 % (36.0-66.0); PLATELET COUNT, AUTOMATED 131 10^3/uL (150-450); WHITE BLOOD COUNT 5.6 10^3/uL (4.0-10.0)
[2021-08-31 14:56] LABS: ACETONE/KETONE 6.05 MG/DL (<2.81); BLOOD UREA NITROGEN 21 MG/DL (7-18); CARBON DIOXIDE LEVEL 21 MEQ/L (21-32); CHLORIDE LEVEL 104 MEQ/L (98-107); CREATININE FOR GFR 0.84 MG/DL (0.55-1.30); GLOMERULAR FILTRATION RATE > 60.0 (>45); GLUCOSE, FASTING 549 MG/DL (70-100); POTASSIUM SERUM 3.8 MEQ/L (3.5-5.1); SODIUM LEVEL 133 MEQ/L (136-145)
[2021-08-31] MEDS ORDERED: NS 1,000 ML IV ONE (15:50)
[2021-08-31] MEDS ORDERED: HumuLIN R (REGULAR) INSULIN (NovoLIN R) **100U/ML** PER UNIT SC ONE (15:50)
[2021-08-31 18:49] VITALS: BP 169/72
== END 2021-08-31 18:50 | disposition home or self-care (01) ==
LOC: M ED 13:23 → EDBD 13:23 → M ED 18:50
DX: E11.65 Type 2 diabetes mellitus with hyperglycemia (principal); I25.10 Atherosclerotic heart disease of native coronary artery without angina pectoris; I13.0 Hypertensive heart and chronic kidney disease with heart failure and stage 1 through stage 4 chronic kidney disease, or unspecified chronic kidney disease; N18.30 Chronic kidney disease, stage 3 unspecified; I50.9 Heart failure, unspecified; E78.5 Hyperlipidemia, unspecified; K75.81 Nonalcoholic steatohepatitis (NASH); Z95.5 Presence of coronary angioplasty implant and graft; E03.9 Hypothyroidism, unspecified; K21.9 Gastro-esophageal reflux disease without esophagitis; Z90.49 Acquired absence of other specified parts of digestive tract; Z90.79 Acquired absence of other genital organ(s); Z79.82 Long term (current) use of aspirin; Z79.4 Long term (current) use of insulin; Z79.899 Other long term (current) drug therapy; Z79.890 Hormone replacement therapy
CPT/HCPCS: 36415; 80048; 82010; 82803; 85025; 96360; 96361; 99285; J1815

== ENCOUNTER → 2021-09-06 | Outpatient (CLI) | payer MEDICAID, MEDICARE, OTHER ==
[2021-09-06 17:08] LABS: BASO # 0.1 10^3/uL (0.0-0.2); BASO % 1.4 % (0.0-1.0); EOS # 0.6 10^3/uL (0.0-0.5); EOS % 10.9 % (0.0-3.0); HEMATOCRIT 36.7 % (36.0-47.0); HEMOGLOBIN 11.9 g/dl (12.0-15.5); LYMPH # 1.6 10^3/uL (1.5-5.0); LYMPH % 27.2 % (24.0-44.0); MEAN CORPUSCULAR HEMOGLOBIN 27.5 pg (27.0-33.0); MEAN CORPUSCULAR HGB CONC 32.4 g/dl (32.0-36.5); MONO # 0.6 10^3/uL (0.0-0.8); MONO % 10.9 % (2.0-8.0); NEUTROPHILS # 2.8 10^3/uL (1.5-8.5); NEUTROPHILS % 49.1 % (36.0-66.0); PLATELET COUNT, AUTOMATED 142 10^3/uL (150-450); RED BLOOD COUNT 4.32 10^6/uL (4.00-5.40); WHITE BLOOD COUNT 5.7 10^3/uL (4.0-10.0)
[2021-09-06 20:28] LABS: BILIRUBIN,TOTAL 0.8 MG/DL (0.2-1.0); CALCIUM LEVEL 8.3 MG/DL (8.8-10.2); CREATININE FOR GFR 1.06 MG/DL (0.55-1.30); GLOMERULAR FILTRATION RATE 54.7 (>45); POTASSIUM SERUM 5.6 MEQ/L (3.5-5.1); TOTAL PROTEIN 5.6 GM/DL (6.4-8.2)
== END ==
LOC: M PLALAB 16:04
PROVIDERS: ATTEND Internal Medicine Hematology
DX: E11.8 Type 2 diabetes mellitus with unspecified complications (principal)

== ENCOUNTER 2021-09-13 11:33 | Inpatient (IN) | payer MEDICARE ==
[~2021-09-13] VITALS: Ht 165.1 cm; Wt 90.8 kg
[2021-09-13] MEDS ORDERED: ONDANSETRON 4MG 2ML VIAL IV ONE (12:20)
[2021-09-13] MEDS ORDERED: NS 1,000 ML IV SCH (12:20)
[2021-09-13 12:30] LABS: BASO # 0.1 10^3/uL (0.0-0.2); EOS # 0.6 10^3/uL (0.0-0.5); EOS % 7.3 % (0.0-3.0); HEMATOCRIT 38.1 % (36.0-47.0); HEMOGLOBIN 12.2 g/dl (12.0-15.5); LYMPH # 2.2 10^3/uL (1.5-5.0); LYMPH % 27.7 % (24.0-44.0); MEAN CORPUSCULAR VOLUME 84.3 fl (80.0-96.0); MONO % 12.5 % (2.0-8.0); NEUTROPHILS # 4.1 10^3/uL (1.5-8.5); NEUTROPHILS % 51.2 % (36.0-66.0); PLATELET COUNT, AUTOMATED 245 10^3/uL (150-450); RED BLOOD COUNT 4.52 10^6/uL (4.00-5.40); WHITE BLOOD COUNT 7.9 10^3/uL (4.0-10.0)
[2021-09-13 12:36] LABS: VENOUS BASE EXCESS -3.8 (-2.0-2.0); VENOUS O2 SATURATION 67.4 % (60.0-80.0); VENOUS PARTIAL PRESSURE CO2 37.6 mmHg (38.0-50.0); VENOUS PH 7.365 UNITS (7.330-7.430); VENOUS STANDARD HCO3 20.6 MEQ/L; VENOUS TOTAL CO2 22.2 MEQ/L (24.0-28.0)
[2021-09-13 13:13] LABS: ALBUMIN 1.8 GM/DL (3.2-5.2); BILIRUBIN,DIRECT 0.2 MG/DL (0.0-0.2); BILIRUBIN,TOTAL 0.5 MG/DL (0.2-1.0); CALCIUM LEVEL 8.8 MG/DL (8.8-10.2); CREATININE FOR GFR 1.35 MG/DL (0.55-1.30); GLOMERULAR FILTRATION RATE 41.4 (>45); POTASSIUM SERUM 4.8 MEQ/L (3.5-5.1); THYROID STIMULATING HORMONE 7.34 uIU/ML (0.358-3.740); TOTAL PROTEIN 5.2 GM/DL (6.4-8.2)
[2021-09-13] MEDS: ISOSORBIDE DIN. (ISORDIL) 20 MG TAB PO SCH ×2 (14:00→22:33)
[2021-09-13 15:20] LABS: RSV AMPLIFICATION NEGATIVE (NEGATIVE)
[2021-09-13] MEDS ORDERED: PATIENT COMMENT (17:14)
[2021-09-13] MEDS ORDERED: AMLO1TAB24 PO (17:14)
[2021-09-13] MEDS ORDERED: METF500T13 PO (17:14)
[2021-09-13] MEDS ORDERED: HOME MED LIST COMPLETE! XX SCH (17:20)
[2021-09-13] MEDS ORDERED: ACETAMINOPHEN TAB 650MG DOSE (2X325MG) PO PRN (18:25)
[2021-09-13] MEDS ORDERED: HYDROcodone/APAP LIQUID 7.5-325MG 15ML UDC (LORTAB ELIXIR) PO PRN (18:25)
[2021-09-13 20:40] VITALS: BP 134/64
[2021-09-13] MEDS: FERROUS SULFATE 325MG TAB PO SCH (22:33)
[2021-09-13] MEDS: SUCRALFATE 1 GM TAB PO SCH (22:33)
[2021-09-13] MEDS: ATORVASTATIN 20 MG TAB PO SCH (22:33)
[2021-09-13] MEDS: LEVEMIR (INSULIN DETEMIR) 1 UNITS/0.01ML SC SCH (22:34)
[2021-09-14 03:00] VITALS: BP 119/43
[2021-09-14 05:33] VITALS: BP 119/44
[2021-09-14] MEDS: LEVOTHYROXINE 88MCG TABLET (0.088 MG) PO SCH (05:34)
[2021-09-14] MEDS: ISOSORBIDE DIN. (ISORDIL) 20 MG TAB PO SCH ×3 (05:34→22:12)
[2021-09-14 06:40] LABS: HEMATOCRIT 33.8 % (36.0-47.0); HEMOGLOBIN 10.9 g/dl (12.0-15.5); MEAN CORPUSCULAR HEMOGLOBIN 27.4 pg (27.0-33.0); MEAN CORPUSCULAR HGB CONC 32.2 g/dl (32.0-36.5); MEAN CORPUSCULAR VOLUME 84.9 fl (80.0-96.0); PLATELET COUNT, AUTOMATED 177 10^3/uL (150-450); RED BLOOD COUNT 3.98 10^6/uL (4.00-5.40); WHITE BLOOD COUNT 7.1 10^3/uL (4.0-10.0)
[2021-09-14 06:59] LABS: ALBUMIN 1.9 GM/DL (3.2-5.2); BILIRUBIN,TOTAL 0.4 MG/DL (0.2-1.0); CALCIUM LEVEL 8.4 MG/DL (8.8-10.2); CREATININE FOR GFR 1.2 MG/DL (0.55-1.30); GLOMERULAR FILTRATION RATE 47.4 (>45); POTASSIUM SERUM 4.9 MEQ/L (3.5-5.1); TOTAL PROTEIN 4.9 GM/DL (6.4-8.2)
[2021-09-14] MEDS: ENOXAPARIN 40MG/0.4ML SYRINGE (J1650 PER 10MG) SC SCH (09:34)
[2021-09-14] MEDS: FERROUS SULFATE 325MG TAB PO SCH ×2 (09:34→20:43)
[2021-09-14] MEDS: ASPIRIN 81MG ENTERIC TABLET PO SCH (09:34)
[2021-09-14] MEDS: DULoxetine 30MG CAPSULE (CYMBALTA) PO SCH (09:34)
[2021-09-14] MEDS: SUCRALFATE 1 GM TAB PO SCH ×3 (09:34→20:43)
[2021-09-14] MEDS: LEVEMIR (INSULIN DETEMIR) 1 UNITS/0.01ML SC SCH ×2 (09:35→20:44)
[2021-09-14 09:36] VITALS: BP 120/44
[2021-09-14] MEDS: atenoloL 50 MG TAB PO SCH (11:24)
[2021-09-14] MEDS: FUROSEMIDE 40 MG TAB PO SCH (11:26)
[2021-09-14] MEDS: amLODIPine 5 MG TAB PO SCH (11:27)
[2021-09-14] MEDS: SPIRONOLACTONE 25 MG TAB PO SCH (11:27)
[2021-09-14] MEDS: NYSTATIN 100,000 UNITS/GM TOPICAL PWD 15 GM TOP SCH ×2 (11:36→20:44)
[2021-09-14 14:00] VITALS: BP 132/53
[2021-09-14 14:44] LABS: INR 1.1; PROTHROMBIN TIME 14.7 SECONDS (12.7-14.5)
[2021-09-14 14:45] LABS: PARTIAL THROMBOPLASTIN TIME 28.8 SECONDS (25.9-37.0)
[2021-09-14] MEDS ORDERED: GLUCAGON INJ 1MG VIAL SC PRN (17:15)
[2021-09-14] MEDS ORDERED: GLUCOSE 4GM CHEW TABLET PO PRN (17:15)
[2021-09-14] MEDS ORDERED: DEXTROSE 50% 50 ML SYRINGE IV PRN (17:15)
[2021-09-14] MEDS: INSULIN LISPRO (NovoLOG) PER UNIT SC SCH ×2 (17:44→20:44)
[2021-09-14] MEDS: ATORVASTATIN 20 MG TAB PO SCH (20:43)
[2021-09-14 22:00] VITALS: BP 128/56
[2021-09-15 05:20] VITALS: BP 137/65
[2021-09-15] MEDS: ISOSORBIDE DIN. (ISORDIL) 20 MG TAB PO SCH ×3 (05:25→21:13)
[2021-09-15] MEDS: LEVOTHYROXINE 88MCG TABLET (0.088 MG) PO SCH (05:25)
[2021-09-15] MEDS: INSULIN LISPRO (NovoLOG) PER UNIT SC SCH ×4 (07:30→21:12)
[2021-09-15] MEDS ORDERED: LIDOCAINE 1% MDV 20ML VIAL As Ordered ONE (09:04)
[2021-09-15 10:09] LABS: APPEARANCE, BODY FLUID HAZY (CLEAR); ASCITES FL COLOR PALE YELLOW (COLORLESS); SOURCE, BODY FLUID ASCITES
[2021-09-15] MEDS: FUROSEMIDE 40 MG TAB PO SCH (10:20)
[2021-09-15] MEDS: DULoxetine 30MG CAPSULE (CYMBALTA) PO SCH (10:20)
[2021-09-15] MEDS: FERROUS SULFATE 325MG TAB PO SCH ×2 (10:21→21:11)
[2021-09-15] MEDS: amLODIPine 5 MG TAB PO SCH (10:22)
[2021-09-15] MEDS: atenoloL 50 MG TAB PO SCH (10:22)
[2021-09-15] MEDS: ASPIRIN 81MG ENTERIC TABLET PO SCH (10:22)
[2021-09-15] MEDS: SUCRALFATE 1 GM TAB PO SCH ×3 (10:23→21:11)
[2021-09-15] MEDS: SPIRONOLACTONE 25 MG TAB PO SCH (10:23)
[2021-09-15] MEDS: NYSTATIN 100,000 UNITS/GM TOPICAL PWD 15 GM TOP SCH ×2 (10:23→21:11)
[2021-09-15] MEDS: LEVEMIR (INSULIN DETEMIR) 1 UNITS/0.01ML SC SCH ×2 (10:30→21:12)
[2021-09-15 11:29] LABS: SOURCE, BODY FLUID ALBUMIN ASCITES; SOURCE, BODY FLUID TOT PROTEIN ASCITES; TOTAL PROTEIN, BODY FLUID 0.9 G/DL (NOT ESTABLISHED)
[2021-09-15 11:43] LABS: ALBUMIN 1.9 GM/DL (3.2-5.2); ALT/SGPT 36 U/L (12-78); BILIRUBIN,TOTAL 0.3 MG/DL (0.2-1.0); BLOOD UREA NITROGEN 39 MG/DL (7-18); CALCIUM LEVEL 8.3 MG/DL (8.8-10.2); CARBON DIOXIDE LEVEL 23 MEQ/L (21-32); CHLORIDE LEVEL 109 MEQ/L (98-107); CREATININE FOR GFR 0.92 MG/DL (0.55-1.30); GLOMERULAR FILTRATION RATE > 60.0 (>45); GLUCOSE, FASTING 154 MG/DL (70-100); POTASSIUM SERUM 4.5 MEQ/L (3.5-5.1); SODIUM LEVEL 138 MEQ/L (136-145); TOTAL PROTEIN 5.2 GM/DL (6.4-8.2)
[2021-09-15 14:00] VITALS: BP 143/67
[2021-09-15 20:21] VITALS: BP 144/67
[2021-09-15] MEDS: ATORVASTATIN 20 MG TAB PO SCH (21:11)
[2021-09-16 05:25] VITALS: BP 130/70
[2021-09-16] MEDS: ISOSORBIDE DIN. (ISORDIL) 20 MG TAB PO SCH ×2 (05:28→15:47)
[2021-09-16] MEDS: LEVOTHYROXINE 88MCG TABLET (0.088 MG) PO SCH (05:28)
[2021-09-16 06:12] LABS: HEMATOCRIT 38.9 % (36.0-47.0); HEMOGLOBIN 12.5 g/dl (12.0-15.5); MEAN CORPUSCULAR HEMOGLOBIN 27.1 pg (27.0-33.0); MEAN CORPUSCULAR HGB CONC 32.1 g/dl (32.0-36.5); MEAN CORPUSCULAR VOLUME 84.4 fl (80.0-96.0); PLATELET COUNT, AUTOMATED 233 10^3/uL (150-450); RED BLOOD COUNT 4.61 10^6/uL (4.00-5.40)
[2021-09-16] MEDS ORDERED: ONDANSETRON 4MG ORAL DISINTEGRATING TAB PO PRN (06:20)
[2021-09-16] MEDS: INSULIN LISPRO (NovoLOG) PER UNIT SC SCH ×2 (07:30→12:22)
[2021-09-16] MEDS: LEVEMIR (INSULIN DETEMIR) 1 UNITS/0.01ML SC SCH (09:00)
[2021-09-16] MEDS: ENOXAPARIN 40MG/0.4ML SYRINGE (J1650 PER 10MG) SC SCH (09:00)
[2021-09-16 09:45] VITALS: BP 138/66
[2021-09-16] MEDS: SUCRALFATE 1 GM TAB PO SCH ×2 (09:46→15:44)
[2021-09-16] MEDS: DULoxetine 30MG CAPSULE (CYMBALTA) PO SCH (09:47)
[2021-09-16] MEDS: amLODIPine 5 MG TAB PO SCH (09:48)
[2021-09-16] MEDS: FUROSEMIDE 40 MG TAB PO SCH (09:48)
[2021-09-16] MEDS: SPIRONOLACTONE 25 MG TAB PO SCH (09:49)
[2021-09-16] MEDS: ASPIRIN 81MG ENTERIC TABLET PO SCH (09:49)
[2021-09-16] MEDS: atenoloL 50 MG TAB PO SCH (09:49)
[2021-09-16] MEDS: FERROUS SULFATE 325MG TAB PO SCH (09:49)
[2021-09-16] MEDS: NYSTATIN 100,000 UNITS/GM TOPICAL PWD 15 GM TOP SCH (09:50)
[2021-09-16 14:00] VITALS: BP 128/48
[2021-09-16 15:47] VITALS: BP 156/66
== END 2021-09-16 17:25 | disposition home health service (06) | DRG 392 ==
LOC: EDBD 11:33 → M ED 11:33 → EEVIPCON 16:59 → M ED INP 16:59 → ENRESERVTM 19:30 → ENRESERVDT 19:30 → M MSPAV 20:32 → OBSVTOIN 09-15 10:50
PROVIDERS: ADMIT Student in an Organized Health Care Education/Training Program; ATTEND Student in an Organized Health Care Education/Training Program
PROC: 0W9G3ZZ Drainage of Peritoneal Cavity, Percutaneous Approach (ICD-10-PCS; principal; 2021-09-15 09:00)
DX: A08.4 Viral intestinal infection, unspecified (principal); N17.9 Acute kidney failure, unspecified; R18.8 Other ascites; I50.32 Chronic diastolic (congestive) heart failure; I13.0 Hypertensive heart and chronic kidney disease with heart failure and stage 1 through stage 4 chronic kidney disease, or unspecified chronic kidney disease; E86.0 Dehydration; K74.60 Unspecified cirrhosis of liver; K75.81 Nonalcoholic steatohepatitis (NASH); E11.22 Type 2 diabetes mellitus with diabetic chronic kidney disease; D63.8 Anemia in other chronic diseases classified elsewhere; I25.10 Atherosclerotic heart disease of native coronary artery without angina pectoris; F32.A Depression, unspecified; Z66 Do not resuscitate; N18.30 Chronic kidney disease, stage 3 unspecified; M79.7 Fibromyalgia; E78.5 Hyperlipidemia, unspecified; K21.9 Gastro-esophageal reflux disease without esophagitis; E03.9 Hypothyroidism, unspecified; Z88.1 Allergy status to other antibiotic agents; Z95.5 Presence of coronary angioplasty implant and graft; Z79.82 Long term (current) use of aspirin; Z79.4 Long term (current) use of insulin; Z79.890 Hormone replacement therapy; Z79.899 Other long term (current) drug therapy; Z98.41 Cataract extraction status, right eye; Z98.42 Cataract extraction status, left eye; Z90.49 Acquired absence of other specified parts of digestive tract; Z87.891 Personal history of nicotine dependence

== ENCOUNTER → 2021-10-02 | Outpatient (CLI) | payer MEDICARE ==
[~2021-10-02] MED LIST changes: +LEVO1TAB40 PO; -LEVO750T13 PO; +PATIENT COMMENT; +POTA-150 PO; -POTA10TA17 PO
[2021-10-02 18:10] LABS: HEMATOCRIT 37.8 % (36.0-47.0); HEMOGLOBIN 12.3 g/dl (12.0-15.5); MEAN CORPUSCULAR HEMOGLOBIN 27.6 pg (27.0-33.0); MEAN CORPUSCULAR HGB CONC 32.5 g/dl (32.0-36.5); MEAN CORPUSCULAR VOLUME 84.8 fl (80.0-96.0); PLATELET COUNT, AUTOMATED 229 10^3/uL (150-450); RED BLOOD COUNT 4.46 10^6/uL (4.00-5.40); WHITE BLOOD COUNT 7.3 10^3/uL (4.0-10.0)
[2021-10-02 22:16] LABS: ALBUMIN 2.3 GM/DL (3.2-5.2); ALT/SGPT 22 U/L (12-78); BILIRUBIN,TOTAL 0.7 MG/DL (0.2-1.0); BLOOD UREA NITROGEN 24 MG/DL (7-18); C REACTIVE PROTEIN QUANTITATIV 1.21 MG/DL (0.00-0.30); CALCIUM LEVEL 8.4 MG/DL (8.8-10.2); CARBON DIOXIDE LEVEL 23 MEQ/L (21-32); CHLORIDE LEVEL 103 MEQ/L (98-107); CHOLESTEROL LEVEL 162 MG/DL (<200); CHOLESTEROL RISK RATIO 3.521 (<5); CREATININE FOR GFR 0.87 MG/DL (0.55-1.30); FERRITIN 39 NG/ML (8-252); FREE T4 1.27 NG/DL (0.76-1.46); GLOMERULAR FILTRATION RATE > 60.0 (>45); GLUCOSE, FASTING 353 MG/DL (70-100); HDL CHOLESTEROL 46 MG/DL (>40); IRON (FE) 72 UG/DL (50-170); LDL CHOLESTEROL 90 MG/DL (<100); NON-HDL-C 116 MG/DL; PERCENT SATURATION 21.8 % (13.2-45.0); SODIUM LEVEL 134 MEQ/L (136-145); TOTAL 25(OH) VITAMIN D 24.5 NG/ML (30.0-100.0); TOTAL IRON BINDING CAPACITY 331 UG/DL (250-450); TOTAL PROTEIN 6.2 GM/DL (6.4-8.2); TRIGLYCERIDES LEVEL 131 MG/DL (<150); VITAMIN B12 LEVEL 738 PG/ML (247-911)
== END ==
LOC: M PLALAB 15:41
PROVIDERS: ATTEND Internal Medicine Hematology
DX: E11.8 Type 2 diabetes mellitus with unspecified complications (principal); D50.9 Iron deficiency anemia, unspecified; Z79.899 Other long term (current) drug therapy

== ENCOUNTER → 2021-11-12 | Outpatient (REF) | payer MEDICARE | LOC: M SFHCPLAZ 13:10 | PROVIDERS: ATTEND Internal Medicine Hematology | DX: E11.8 Type 2 diabetes mellitus with unspecified complications (principal); D50.9 Iron deficiency anemia, unspecified ==

== ENCOUNTER 2021-11-13 15:40 | Inpatient (IN) | payer MEDICARE ==
[~2021-11-13] VITALS: Ht 165.1 cm; Wt 102.6 kg
[2021-11-13 17:28] LABS: BASO # 0.1 10^3/uL (0.0-0.2); BASO % 1.3 % (0.0-1.0); EOS # 0.6 10^3/uL (0.0-0.5); EOS % 7.2 % (0.0-3.0); HEMATOCRIT 36.3 % (36.0-47.0); HEMOGLOBIN 11.5 g/dl (12.0-15.5); LYMPH # 2.3 10^3/uL (1.5-5.0); LYMPH % 28.5 % (24.0-44.0); MEAN CORPUSCULAR HEMOGLOBIN 27.2 pg (27.0-33.0); MEAN CORPUSCULAR HGB CONC 31.7 g/dl (32.0-36.5); MEAN CORPUSCULAR VOLUME 85.8 fl (80.0-96.0); MONO # 0.9 10^3/uL (0.0-0.8); MONO % 11.6 % (2.0-8.0); PLATELET COUNT, AUTOMATED 257 10^3/uL (150-450); RED BLOOD COUNT 4.23 10^6/uL (4.00-5.40); WHITE BLOOD COUNT 7.9 10^3/uL (4.0-10.0)
[2021-11-13 17:59] LABS: BLOOD UREA NITROGEN 17 MG/DL (7-18); CREATININE FOR GFR 0.67 MG/DL (0.55-1.30); GLUCOSE, FASTING 134 MG/DL (70-100)
[2021-11-13 18:00] LABS: ALBUMIN 2.2 GM/DL (3.2-5.2); ALT/SGPT 15 U/L (12-78); BILIRUBIN,TOTAL 0.9 MG/DL (0.2-1.0); CALCIUM LEVEL 8.7 MG/DL (8.8-10.2); CARBON DIOXIDE LEVEL 29 MEQ/L (21-32); CHLORIDE LEVEL 103 MEQ/L (98-107); GLOMERULAR FILTRATION RATE > 60.0 (>45); NT-PRO BNP 2936 PG/ML (<125); POTASSIUM SERUM 3.7 MEQ/L (3.5-5.1); SODIUM LEVEL 135 MEQ/L (136-145); TOTAL PROTEIN 6.4 GM/DL (6.4-8.2)
[2021-11-13] MEDS ORDERED: MORPHINE 4 MG/ML 1ML VIAL/SYRINGE IV ONE ×2 (18:10→21:10)
[2021-11-13] MEDS ORDERED: FUROSEMIDE 40MG/4ML VIAL (J1940) IV ONE (18:15)
[2021-11-13 18:22] LABS: INR 1.03; PROTHROMBIN TIME 13.9 SECONDS (12.7-14.5)
[2021-11-13 18:28] LABS: ABG BASE EXCESS 2.1 (-2.0-2.0); ABG O2 SATURATION 98.8 % (95.0-99.0); ABG PARTIAL PRESSURE CO2 33.3 mmHg (35.0-45.0); ABG PARTIAL PRESSURE O2 114.3 mmHg (75.0-100.0); ABG STANDARD HCO3 26.3 MEQ/L (22.0-26.0); ABG pH (ARTERIAL) 7.493 UNITS (7.350-7.450)
[2021-11-13 18:44] LABS: MAGNESIUM LEVEL 1.5 MG/DL (1.8-2.4)
[2021-11-13 19:08] LABS: CK-MB VALUE MASS 2.1 NG/ML (<3.6); MB/CK RELATIVE INDEX 1.98 (< OR =4)
[2021-11-13] MEDS ORDERED: ISOVUE-370 76% 100ML VIAL As Ordered ONE (19:16)
[2021-11-13 20:16] LABS: CK-MB VALUE MASS 1.7 NG/ML (<3.6); MB/CK RELATIVE INDEX 1.56 (< OR =4)
[2021-11-13] MEDS ORDERED: HOME MED LIST COMPLETE! XX SCH (20:30)
[2021-11-13] MEDS: LEVEMIR (INSULIN DETEMIR) 1 UNITS/0.01ML SC SCH (21:00)
[2021-11-13] MEDS ORDERED: GLUCAGON INJ 1MG VIAL SC PRN (22:20)
[2021-11-13] MEDS ORDERED: GLUCOSE 4GM CHEW TABLET PO PRN (22:20)
[2021-11-13] MEDS: PANTOPRAZOLE 40MG VIAL IV SCH (23:14)
[2021-11-14] MEDS: LEVOTHYROXINE 88MCG TABLET (0.088 MG) PO SCH (05:49)
[2021-11-14 05:56] LABS: HEMOGLOBIN 11.2 g/dl (12.0-15.5); MEAN CORPUSCULAR HEMOGLOBIN 27.1 pg (27.0-33.0); MEAN CORPUSCULAR VOLUME 84.5 fl (80.0-96.0); PLATELET COUNT, AUTOMATED 271 10^3/uL (150-450); RED BLOOD COUNT 4.14 10^6/uL (4.00-5.40)
[2021-11-14 06:40] LABS: ALT/SGPT 12 U/L (12-78); BILIRUBIN,TOTAL 0.8 MG/DL (0.2-1.0); BLOOD UREA NITROGEN 17 MG/DL (7-18); CALCIUM LEVEL 8.5 MG/DL (8.8-10.2); CARBON DIOXIDE LEVEL 27 MEQ/L (21-32); CHLORIDE LEVEL 105 MEQ/L (98-107); GLOMERULAR FILTRATION RATE > 60.0 (>45); GLUCOSE, FASTING 153 MG/DL (70-100); SODIUM LEVEL 139 MEQ/L (136-145); TOTAL PROTEIN 5.7 GM/DL (6.4-8.2)
[2021-11-14] MEDS: ISOSORBIDE DIN. (ISORDIL) 20 MG TAB PO SCH ×3 (08:00→17:09)
[2021-11-14] MEDS ORDERED: FUROSEMIDE 40MG/4ML VIAL (J1940) IV SCH ×2 (09:00→17:00)
[2021-11-14] MEDS ORDERED: amLODIPine 5 MG TAB PO SCH (09:00)
[2021-11-14] MEDS: INSULIN LISPRO (NovoLOG) PER UNIT SC SCH ×3 (09:21→17:07)
[2021-11-14] MEDS: SPIRONOLACTONE 25 MG TAB PO SCH (09:21)
[2021-11-14] MEDS: SUCRALFATE 1 GM TAB PO SCH ×3 (09:21→23:12)
[2021-11-14] MEDS: ASPIRIN 81MG ENTERIC TABLET PO SCH (09:22)
[2021-11-14] MEDS: ENOXAPARIN 40MG/0.4ML SYRINGE (J1650 PER 10MG) SC SCH (09:22)
[2021-11-14] MEDS: LEVEMIR (INSULIN DETEMIR) 1 UNITS/0.01ML SC SCH ×2 (09:22→23:13)
[2021-11-14] MEDS: POTASSIUM CHLORIDE 10MEQ SR TABLET PO SCH ×2 (09:22→23:12)
[2021-11-14] MEDS: DULoxetine 30MG CAPSULE (CYMBALTA) PO SCH (09:22)
[2021-11-14 12:43] LABS: SOURCE, BODY FLUID ALBUMIN ASCITES
[2021-11-14 12:47] LABS: APPEARANCE, BODY FLUID HAZY (CLEAR); ASCITES FL COLOR PALE YELLOW (COLORLESS); SOURCE, BODY FLUID ASCITES
[2021-11-14 12:48] LABS: SOURCE, BODY FLUID GLUCOSE ASCITES; SOURCE, BODY FLUID TOT PROTEIN ASCITES; TOTAL PROTEIN, BODY FLUID 1.7 G/DL (NOT ESTABLISHED)
[2021-11-14 12:58] VITALS: BP 167/59
[2021-11-14] MEDS: ANEXSIA, NORCO 7.5MG/325MG TABLET(HYDROCODONE/APAP) PO PRN ×2 (13:16→23:29)
[2021-11-14 20:00] VITALS: BP 118/89
[2021-11-14] MEDS: ATORVASTATIN 20 MG TAB PO SCH (23:12)
[2021-11-14] MEDS: PANTOPRAZOLE 40MG VIAL IV SCH (23:12)
[2021-11-15] VITALS (9 sets, daily range): BP systolic 131–150; BP diastolic 51–73
[2021-11-15] MEDS: FUROSEMIDE 40MG/4ML VIAL (J1940) IV SCH ×4 (00:58→17:23)
[2021-11-15] MEDS: ANEXSIA, NORCO 7.5MG/325MG TABLET(HYDROCODONE/APAP) PO PRN ×2 (01:00→19:01)
[2021-11-15] MEDS: DEXTROSE 50% 50 ML SYRINGE IV PRN ×2 (03:14→08:59)
[2021-11-15] MEDS ORDERED: DEXTROSE 50% 50 ML SYRINGE IV STA (03:19)
[2021-11-15] MEDS: LEVOTHYROXINE 88MCG TABLET (0.088 MG) PO SCH (06:23)
[2021-11-15 06:50] LABS: HEMOGLOBIN 10.4 g/dl (12.0-15.5); MEAN CORPUSCULAR HEMOGLOBIN 27.1 pg (27.0-33.0); MEAN CORPUSCULAR HGB CONC 31.5 g/dl (32.0-36.5); MEAN CORPUSCULAR VOLUME 85.9 fl (80.0-96.0); PLATELET COUNT, AUTOMATED 222 10^3/uL (150-450); RED BLOOD COUNT 3.84 10^6/uL (4.00-5.40); WHITE BLOOD COUNT 6.5 10^3/uL (4.0-10.0)
[2021-11-15] MEDS: INSULIN LISPRO (NovoLOG) PER UNIT SC SCH ×3 (07:30→17:23)
[2021-11-15 07:32] LABS: ALBUMIN 1.7 GM/DL (3.2-5.2); ALT/SGPT 14 U/L (12-78); BILIRUBIN,TOTAL 0.4 MG/DL (0.2-1.0); BLOOD UREA NITROGEN 20 MG/DL (7-18); CALCIUM LEVEL 8.3 MG/DL (8.8-10.2); CARBON DIOXIDE LEVEL 25 MEQ/L (21-32); CHLORIDE LEVEL 109 MEQ/L (98-107); CREATININE FOR GFR 0.67 MG/DL (0.55-1.30); GLOMERULAR FILTRATION RATE > 60.0 (>45); GLUCOSE, FASTING 93 MG/DL (70-100); POTASSIUM SERUM 3.8 MEQ/L (3.5-5.1); SODIUM LEVEL 140 MEQ/L (136-145); TOTAL PROTEIN 5.2 GM/DL (6.4-8.2)
[2021-11-15] MEDS: POTASSIUM CHLORIDE 10MEQ SR TABLET PO SCH ×2 (08:59→20:16)
[2021-11-15] MEDS: ASPIRIN 81MG ENTERIC TABLET PO SCH (08:59)
[2021-11-15] MEDS: ISOSORBIDE DIN. (ISORDIL) 20 MG TAB PO SCH ×3 (08:59→17:22)
[2021-11-15] MEDS: SUCRALFATE 1 GM TAB PO SCH ×3 (08:59→20:16)
[2021-11-15] MEDS ORDERED: LEVEMIR (INSULIN DETEMIR) 1 UNITS/0.01ML SC SCH ×2 (09:00)
[2021-11-15] MEDS: ENOXAPARIN 40MG/0.4ML SYRINGE (J1650 PER 10MG) SC SCH (09:00)
[2021-11-15] MEDS: SPIRONOLACTONE 25 MG TAB PO SCH (09:00)
[2021-11-15] MEDS: DULoxetine 30MG CAPSULE (CYMBALTA) PO SCH (09:00)
[2021-11-15] MEDS: PANTOPRAZOLE 40MG TAB (PROTONIX) PO SCH (17:22)
[2021-11-15] MEDS: ATORVASTATIN 20 MG TAB PO SCH (20:16)
[2021-11-16] MEDS: FUROSEMIDE 40MG/4ML VIAL (J1940) IV SCH ×5 (00:10→22:54)
[2021-11-16 00:11] VITALS: BP 151/63
[2021-11-16 00:31] LABS: VENOUS BASE EXCESS 2.5 (-2.0-2.0); VENOUS O2 SATURATION 99.4 % (60.0-80.0); VENOUS PARTIAL PRESSURE CO2 31.5 mmHg (38.0-50.0); VENOUS PARTIAL PRESSURE O2 231.8 mmHg (30.0-50.0); VENOUS PH 7.518 UNITS (7.330-7.430); VENOUS STANDARD HCO3 26.7 MEQ/L
[2021-11-16 00:36] LABS: HEMATOCRIT 29.4 % (36.0-47.0); HEMOGLOBIN 9.3 g/dl (12.0-15.5)
[2021-11-16 00:54] LABS: BLOOD UREA NITROGEN 21 MG/DL (7-18); CALCIUM LEVEL 7.9 MG/DL (8.8-10.2); CARBON DIOXIDE LEVEL 29 MEQ/L (21-32); CHLORIDE LEVEL 107 MEQ/L (98-107); CREATININE FOR GFR 0.81 MG/DL (0.55-1.30); GLOMERULAR FILTRATION RATE > 60.0 (>45); GLUCOSE, FASTING 218 MG/DL (70-100); MAGNESIUM LEVEL 1.3 MG/DL (1.8-2.4); POTASSIUM SERUM 4.2 MEQ/L (3.5-5.1); SODIUM LEVEL 141 MEQ/L (136-145)
[2021-11-16] MEDS: LACTULOSE 20 GM/30 ML SYRUP UD PO SCH ×4 (02:26→22:53)
[2021-11-16] MEDS ORDERED: PANTOPRAZOLE 40MG VIAL IV ONE (03:00)
[2021-11-16 05:40] VITALS: BP 150/66
[2021-11-16] MEDS: LEVOTHYROXINE 88MCG TABLET (0.088 MG) PO SCH (05:54)
[2021-11-16 06:00] VITALS: BP 141/69
[2021-11-16 08:26] LABS: HEMATOCRIT 30.9 % (36.0-47.0); HEMOGLOBIN 9.8 g/dl (12.0-15.5); MEAN CORPUSCULAR HEMOGLOBIN 27.1 pg (27.0-33.0); MEAN CORPUSCULAR HGB CONC 31.7 g/dl (32.0-36.5); MEAN CORPUSCULAR VOLUME 85.6 fl (80.0-96.0); PLATELET COUNT, AUTOMATED 179 10^3/uL (150-450); RED BLOOD COUNT 3.61 10^6/uL (4.00-5.40); WHITE BLOOD COUNT 4.8 10^3/uL (4.0-10.0)
[2021-11-16 08:37] LABS: INR 1.05; PROTHROMBIN TIME 14.1 SECONDS (12.7-14.5)
[2021-11-16 08:38] LABS: PARTIAL THROMBOPLASTIN TIME 30.9 SECONDS (25.9-37.0)
[2021-11-16] MEDS ORDERED: LEVEMIR (INSULIN DETEMIR) 1 UNITS/0.01ML SC SCH (09:00)
[2021-11-16] MEDS: ENOXAPARIN 40MG/0.4ML SYRINGE (J1650 PER 10MG) SC SCH (09:00)
[2021-11-16 09:02] LABS: ALBUMIN 2.1 GM/DL (3.2-5.2); ALT/SGPT 15 U/L (12-78); BILIRUBIN,TOTAL 0.7 MG/DL (0.2-1.0); BLOOD UREA NITROGEN 19 MG/DL (7-18); CALCIUM LEVEL 8.2 MG/DL (8.8-10.2); CARBON DIOXIDE LEVEL 30 MEQ/L (21-32); CHLORIDE LEVEL 106 MEQ/L (98-107); CREATININE FOR GFR 0.73 MG/DL (0.55-1.30); FERRITIN 40 NG/ML (8-252); GLOMERULAR FILTRATION RATE > 60.0 (>45); GLUCOSE, FASTING 211 MG/DL (70-100); IRON (FE) 33 UG/DL (50-170); MAGNESIUM LEVEL 1.3 MG/DL (1.8-2.4); PERCENT SATURATION 14.3 % (13.2-45.0); PHOSPHORUS LEVEL 3.1 MG/DL (2.5-4.9); POTASSIUM SERUM 3.8 MEQ/L (3.5-5.1); SODIUM LEVEL 139 MEQ/L (136-145); TOTAL IRON BINDING CAPACITY 231 UG/DL (250-450); TOTAL PROTEIN 5.3 GM/DL (6.4-8.2)
[2021-11-16 09:17] LABS: VITAMIN B12 LEVEL 630 PG/ML (247-911)
[2021-11-16] MEDS: ASPIRIN 81MG ENTERIC TABLET PO SCH (09:26)
[2021-11-16] MEDS: DULoxetine 30MG CAPSULE (CYMBALTA) PO SCH (09:26)
[2021-11-16] MEDS: INSULIN LISPRO (NovoLOG) PER UNIT SC SCH ×3 (09:26→17:08)
[2021-11-16] MEDS: ISOSORBIDE DIN. (ISORDIL) 20 MG TAB PO SCH ×3 (09:32→17:10)
[2021-11-16] MEDS: SPIRONOLACTONE 25 MG TAB PO SCH (09:33)
[2021-11-16] MEDS: POTASSIUM CHLORIDE 10MEQ SR TABLET PO SCH ×2 (09:33→22:54)
[2021-11-16] MEDS: SUCRALFATE 1 GM TAB PO SCH ×3 (09:33→22:55)
[2021-11-16] MEDS: PANTOPRAZOLE 40MG TAB (PROTONIX) PO SCH (09:33)
[2021-11-16] MEDS: MAG SULF 1GM/100ML (MAG RUN) 1 GM in IV 1 EA IV SCH ×2 (09:34→10:56)
[2021-11-16] MEDS ORDERED: amLODIPine 5 MG TAB PO ONE (13:50)
[2021-11-16 14:00] VITALS: BP_SYST 133; BP_SYST 158; BP_DIAS 52; BP_DIAS 54
[2021-11-16] MEDS: atenoloL 50 MG TAB PO SCH (18:05)
[2021-11-16 21:10] VITALS: BP 159/72
[2021-11-16] MEDS: LEVEMIR (INSULIN DETEMIR) 1 UNITS/0.01ML SC SCH (22:55)
[2021-11-16] MEDS: ATORVASTATIN 20 MG TAB PO SCH (22:55)
[2021-11-16] MEDS: ANEXSIA, NORCO 7.5MG/325MG TABLET(HYDROCODONE/APAP) PO PRN (23:04)
[2021-11-17 06:00] VITALS: BP 141/55
[2021-11-17 06:03] LABS: HEMATOCRIT 31.5 % (36.0-47.0); HEMOGLOBIN 10.2 g/dl (12.0-15.5); MEAN CORPUSCULAR HEMOGLOBIN 27.3 pg (27.0-33.0); MEAN CORPUSCULAR HGB CONC 32.4 g/dl (32.0-36.5); MEAN CORPUSCULAR VOLUME 84.5 fl (80.0-96.0); PLATELET COUNT, AUTOMATED 186 10^3/uL (150-450); RED BLOOD COUNT 3.73 10^6/uL (4.00-5.40); WHITE BLOOD COUNT 5.6 10^3/uL (4.0-10.0)
[2021-11-17] MEDS: MAG SULF 1GM/100ML (MAG RUN) 1 GM in IV 1 EA IV SCH ×2 (06:19→08:02)
[2021-11-17] MEDS: LEVOTHYROXINE 88MCG TABLET (0.088 MG) PO SCH (06:19)
[2021-11-17] MEDS: FUROSEMIDE 40MG/4ML VIAL (J1940) IV SCH ×2 (06:20→12:33)
[2021-11-17] MEDS: LACTULOSE 20 GM/30 ML SYRUP UD PO SCH (08:02)
[2021-11-17] MEDS: ENOXAPARIN 40MG/0.4ML SYRINGE (J1650 PER 10MG) SC SCH ×2 (08:02→08:16)
[2021-11-17] MEDS: PANTOPRAZOLE 40MG TAB (PROTONIX) PO SCH (08:03)
[2021-11-17] MEDS: DULoxetine 30MG CAPSULE (CYMBALTA) PO SCH (08:03)
[2021-11-17] MEDS: ASPIRIN 81MG ENTERIC TABLET PO SCH (08:03)
[2021-11-17] MEDS: SUCRALFATE 1 GM TAB PO SCH (08:05)
[2021-11-17] MEDS: atenoloL 50 MG TAB PO SCH (08:05)
[2021-11-17] MEDS: POTASSIUM CHLORIDE 10MEQ SR TABLET PO SCH (08:05)
[2021-11-17] MEDS: SPIRONOLACTONE 25 MG TAB PO SCH (08:06)
[2021-11-17] MEDS: INSULIN LISPRO (NovoLOG) PER UNIT SC SCH ×2 (08:07→12:34)
[2021-11-17] MEDS: LEVEMIR (INSULIN DETEMIR) 1 UNITS/0.01ML SC SCH (08:08)
[2021-11-17] MEDS: ISOSORBIDE DIN. (ISORDIL) 20 MG TAB PO SCH ×2 (08:10→12:32)
[2021-11-17] MEDS ORDERED: LACT20EL PO (08:44)
[2021-11-17] MEDS ORDERED: amLODIPine 5 MG TAB PO SCH (09:00)
[2021-11-17 09:07] LABS: FOLATE 8.1 ng/mL (>3.0)
[2021-11-17 09:29] LABS: BLOOD UREA NITROGEN 20 MG/DL (7-18); CARBON DIOXIDE LEVEL 28 MEQ/L (21-32); CHLORIDE LEVEL 108 MEQ/L (98-107); CREATININE FOR GFR 0.73 MG/DL (0.55-1.30); GLOMERULAR FILTRATION RATE > 60.0 (>45); GLUCOSE, FASTING 161 MG/DL (70-100); POTASSIUM SERUM 3.7 MEQ/L (3.5-5.1); SODIUM LEVEL 140 MEQ/L (136-145)
[2021-11-17] MEDS ORDERED: LASI80TA3 PO (10:50)
[2021-11-17] MEDS ORDERED: METO25TA PO (10:50)
[2021-11-17] MEDS ORDERED: TORS20TA2 PO (10:50)
[2021-11-17 12:32] VITALS: BP 150/70
== END 2021-11-17 14:20 | disposition home health service (06) | DRG 291 ==
LOC: M ED 15:40 → M ED INP 22:09 → M MSPAV 11-14 12:42
PROVIDERS: ADMIT Family Medicine; ATTEND Internal Medicine
PROC: 0W9G3ZZ Drainage of Peritoneal Cavity, Percutaneous Approach (ICD-10-PCS; principal; 2021-11-14 10:30)
DX: I13.0 Hypertensive heart and chronic kidney disease with heart failure and stage 1 through stage 4 chronic kidney disease, or unspecified chronic kidney disease (principal); I50.33 Acute on chronic diastolic (congestive) heart failure; R18.8 Other ascites; I25.10 Atherosclerotic heart disease of native coronary artery without angina pectoris; E78.5 Hyperlipidemia, unspecified; E03.9 Hypothyroidism, unspecified; K74.60 Unspecified cirrhosis of liver; K75.81 Nonalcoholic steatohepatitis (NASH); E11.22 Type 2 diabetes mellitus with diabetic chronic kidney disease; F32.A Depression, unspecified; N18.30 Chronic kidney disease, stage 3 unspecified; R16.1 Splenomegaly, not elsewhere classified; M79.7 Fibromyalgia; K21.9 Gastro-esophageal reflux disease without esophagitis; Z79.84 Long term (current) use of oral hypoglycemic drugs; Z88.8 Allergy status to other drugs, medicaments and biological substances; Z95.5 Presence of coronary angioplasty implant and graft; Z90.49 Acquired absence of other specified parts of digestive tract; Z98.49 Cataract extraction status, unspecified eye; Z79.82 Long term (current) use of aspirin; Z79.899 Other long term (current) drug therapy

== ENCOUNTER → 2021-11-28 | Outpatient (CLI) | payer MEDICARE ==
[~2021-11-28] MED LIST changes: +LACT20EL PO; +LASI80TA3 PO
[2021-11-28 14:36] LABS: BASO % 0.7 % (0.0-1.0); EOS # 0.3 10^3/uL (0.0-0.5); HEMATOCRIT 31.2 % (36.0-47.0); HEMOGLOBIN 9.8 g/dl (12.0-15.5); LYMPH # 1.3 10^3/uL (1.5-5.0); LYMPH % 23.3 % (24.0-44.0); MEAN CORPUSCULAR HEMOGLOBIN 26.8 pg (27.0-33.0); MEAN CORPUSCULAR HGB CONC 31.4 g/dl (32.0-36.5); MEAN CORPUSCULAR VOLUME 85.5 fl (80.0-96.0); MONO # 0.6 10^3/uL (0.0-0.8); NEUTROPHILS # 3.3 10^3/uL (1.5-8.5); NEUTROPHILS % 59.6 % (36.0-66.0); PLATELET COUNT, AUTOMATED 174 10^3/uL (150-450); RED BLOOD COUNT 3.65 10^6/uL (4.00-5.40); WHITE BLOOD COUNT 5.5 10^3/uL (4.0-10.0)
[2021-11-28 15:58] LABS: ALBUMIN 1.9 GM/DL (3.2-5.2); ALT/SGPT 14 U/L (12-78); BILIRUBIN,TOTAL 0.6 MG/DL (0.2-1.0); BLOOD UREA NITROGEN 26 MG/DL (7-18); CALCIUM LEVEL 8.5 MG/DL (8.8-10.2); CARBON DIOXIDE LEVEL 26 MEQ/L (21-32); CHLORIDE LEVEL 103 MEQ/L (98-107); GLOMERULAR FILTRATION RATE > 60.0 (>45); GLUCOSE, FASTING 642 MG/DL (70-100); POTASSIUM SERUM 4.8 MEQ/L (3.5-5.1); SODIUM LEVEL 133 MEQ/L (136-145); TOTAL PROTEIN 5.2 GM/DL (6.4-8.2)
== END ==
LOC: M PLALAB 11:53
PROVIDERS: ATTEND Physician Assistant
DX: K75.81 Nonalcoholic steatohepatitis (NASH) (principal)

== ENCOUNTER 2021-12-18 05:37 | Inpatient (IN) | payer MEDICAID, MEDICARE ==
[~2021-12-18] VITALS: Ht 167.6 cm; Wt 102.9 kg
[2021-12-18 06:54] LABS: BASO # 0.1 10^3/uL (0.0-0.2); BASO % 0.8 % (0.0-1.0); EOS # 0.5 10^3/uL (0.0-0.5); EOS % 5.5 % (0.0-3.0); HEMATOCRIT 36.8 % (36.0-47.0); LYMPH # 1.6 10^3/uL (1.5-5.0); LYMPH % 17.8 % (24.0-44.0); MEAN CORPUSCULAR HEMOGLOBIN 26.3 pg (27.0-33.0); MEAN CORPUSCULAR HGB CONC 32.6 g/dl (32.0-36.5); MEAN CORPUSCULAR VOLUME 80.7 fl (80.0-96.0); MONO # 0.9 10^3/uL (0.0-0.8); MONO % 10.1 % (2.0-8.0); NEUTROPHILS # 5.7 10^3/uL (1.5-8.5); NEUTROPHILS % 65.2 % (36.0-66.0); PLATELET COUNT, AUTOMATED 270 10^3/uL (150-450); RED BLOOD COUNT 4.56 10^6/uL (4.00-5.40); WHITE BLOOD COUNT 8.8 10^3/uL (4.0-10.0)
[2021-12-18 07:12] LABS: ALBUMIN 2.2 GM/DL (3.2-5.2); BILIRUBIN,DIRECT 0.4 MG/DL (0.0-0.2); TOTAL PROTEIN 6.7 GM/DL (6.4-8.2)
[2021-12-18 07:21] LABS: CK-MB VALUE MASS 7.5 NG/ML (<3.6); MB/CK RELATIVE INDEX 2.19 (< OR =4)
[2021-12-18 08:23] LABS: INR 0.91; PROTHROMBIN TIME 12.4 SECONDS (12.5-14.5)
[2021-12-18] MEDS ORDERED: HumuLIN R (REGULAR) INSULIN (NovoLIN R) **100U/ML** PER UNIT IV ONE ×2 (08:35→13:25)
[2021-12-18] MEDS ORDERED: FUROSEMIDE 100MG/10ML VIAL (J1940) IV ONE (08:35)
[2021-12-18] MEDS ORDERED: KCL 10MEQ/100ML SWI (KRUN) 10 MEQ in IV 1 EA IV ONE (08:35)
[2021-12-18 08:43] LABS: APPEARANCE, URINE MANUAL CLEAR (CLEAR); BILIRUBIN, URINE MANUAL NEGATIVE (NEGATIVE); BLOOD URINE MANUAL NEGATIVE (NEGATIVE); COLOR, URINE MANUAL LT YELLOW (YELLOW); GLUCOSE, URINE (UA) MANUAL 4+(1000 MG/DL) mg/dL (NEGATIVE); KETONE, URINE MANUAL NEGATIVE (NEGATIVE); LEUKOCYTE ESTERASE, URINE MAN NEGATIVE (NEGATIVE); NITRITE, URINE MANUAL NEGATIVE (NEGATIVE); PH,URINE MAN 5.5 UNITS (5.0 - 7.0); PROTEIN, URINE MANUAL NEGATIVE (NEGATIVE); UROBILINOGEN, URINE MANUAL NORMAL (NORMAL)
[2021-12-18 08:59] LABS: CK-MB VALUE MASS 7.4 NG/ML (<3.6); MB/CK RELATIVE INDEX 2.09 (< OR =4)
[2021-12-18 09:12] LABS: VENOUS BASE EXCESS 0.7 (-2.0-2.0); VENOUS HCO3 25.9 MEQ/L (23.0-27.0); VENOUS O2 SATURATION 81.6 % (60.0-80.0); VENOUS PARTIAL PRESSURE CO2 43.3 mmHg (38.0-50.0); VENOUS PARTIAL PRESSURE O2 48.2 mmHg (30.0-50.0); VENOUS PH 7.394 UNITS (7.330-7.430); VENOUS STANDARD HCO3 24.8 MEQ/L; VENOUS TOTAL CO2 27.2 MEQ/L (24.0-28.0)
[2021-12-18] MEDS ORDERED: MAALOX 30 ML SUSP *UDC PO PRN (11:25)
[2021-12-18] MEDS ORDERED: MOM 30ML SUSPENSION UDC PO PRN (11:25)
[2021-12-18] MEDS ORDERED: ACETAMINOPHEN TAB 650MG DOSE (2X325MG) PO PRN (11:25)
[2021-12-18] MEDS ORDERED: GLUCAGON INJ 1MG VIAL SC PRN (11:55)
[2021-12-18] MEDS ORDERED: DEXTROSE 50% 50 ML SYRINGE IV PRN (11:55)
[2021-12-18] MEDS ORDERED: GLUCOSE 4GM CHEW TABLET PO PRN (11:55)
[2021-12-18] MEDS ORDERED: FUROSEMIDE 40MG/4ML VIAL (J1940) IV SCH (12:00)
[2021-12-18] MEDS: INSULIN LISPRO (NovoLOG) PER UNIT SC SCH ×2 (12:00→20:28)
[2021-12-18 13:13] LABS: HEMOGLOBIN A1c 13.8 %
[2021-12-18 13:25] LABS: ACETONE/KETONE 5.1 MG/DL (<2.81)
[2021-12-18 13:49] LABS: ALBUMIN 1.9 GM/DL (3.2-5.2); BILIRUBIN,TOTAL 0.8 MG/DL (0.2-1.0); CALCIUM LEVEL 8.7 MG/DL (8.8-10.2); CREATININE FOR GFR 1.06 MG/DL (0.55-1.30); GLOMERULAR FILTRATION RATE 54.7 (>45); POTASSIUM SERUM 3.8 MEQ/L (3.5-5.1); TOTAL PROTEIN 5.7 GM/DL (6.4-8.2)
[2021-12-18] MEDS: LACTULOSE 20 GM/30 ML SYRUP UD PO SCH ×2 (13:58→20:28)
[2021-12-18] MEDS: PANTOPRAZOLE 40MG VIAL IV SCH (13:58)
[2021-12-18] MEDS ORDERED: NS 1,000 ML IV SCH (14:05)
[2021-12-18] MEDS ORDERED: NS 1,000 ML IV ONE (14:05)
[2021-12-18 14:23] LABS: ABG BASE EXCESS 4.4 (-2.0-2.0); ABG HCO3 27.2 MEQ/L (22.0-26.0); ABG O2 SATURATION 97.2 % (95.0-99.0); ABG PARTIAL PRESSURE CO2 34.4 mmHg (35.0-45.0); ABG STANDARD HCO3 28.4 MEQ/L (22.0-26.0); ABG TOTAL CO2 28.3 MEQ/L (23.0-31.0); ABG pH (ARTERIAL) 7.516 UNITS (7.350-7.450)
[2021-12-18 15:37] LABS: APPEARANCE, BODY FLUID HAZY (CLEAR); ASCITES FL COLOR YELLOW (COLORLESS); SOURCE, BODY FLUID ASCITES; SPEC. GRAVITY BODY FLUIDS 1.017 (NOT ESTABLISHED)
[2021-12-18 15:41] LABS: THYROID STIMULATING HORMONE 7.19 uIU/ML (0.358-3.740)
[2021-12-18] MEDS ORDERED: LEVO100T5 PO (15:41)
[2021-12-18] MEDS ORDERED: HYDR-4517 PO (15:41)
[2021-12-18] MEDS ORDERED: LACT10SO3 PO (15:41)
[2021-12-18] MEDS ORDERED: TORS20TA2 PO (15:41)
[2021-12-18] MEDS ORDERED: METF-838 PO (15:41)
[2021-12-18] MEDS ORDERED: TRUL0.5I SC (15:41)
[2021-12-18] MEDS ORDERED: METO25TA PO (15:41)
[2021-12-18] MEDS ORDERED: PATIENT COMMENT (15:42)
[2021-12-18] MEDS ORDERED: HOME MED LIST COMPLETE! XX SCH (15:45)
[2021-12-18] MEDS: PIPERACILLIN/TAZOBACTAM SOD 3.375 GM in D5W MINI-BAG PLUS 50 ML IV SCH ×2 (16:06→23:43)
[2021-12-18] MEDS: LEVEMIR (INSULIN DETEMIR) 1 UNITS/0.01ML SC SCH ×2 (16:06→20:32)
[2021-12-18 16:17] LABS: SOURCE, BODY FLUID ALBUMIN ASCITES
[2021-12-18] MEDS ORDERED: NS 500 ML IV ONE (16:20)
[2021-12-18 16:22] LABS: SOURCE, BODY FLUID GLUCOSE ASCITES; SOURCE, BODY FLUID TOT PROTEIN ASCITES; TOTAL PROTEIN, BODY FLUID 1.5 G/DL (NOT ESTABLISHED)
[2021-12-18] MEDS ORDERED: HumuLIN R (REGULAR) INSULIN (NovoLIN R) **100U/ML** PER UNIT IV STA ×3 (16:34→20:16)
[2021-12-18] MEDS ORDERED: SODIUM CHLORIDE 0.9% 1000ML IV ONE (16:35)
[2021-12-18 17:16] LABS: BASO % 0.4 % (0.0-1.0); EOS # 0.4 10^3/uL (0.0-0.5); EOS % 5.2 % (0.0-3.0); HEMATOCRIT 35.4 % (36.0-47.0); HEMOGLOBIN 11.4 g/dl (12.0-15.5); LYMPH # 1.3 10^3/uL (1.5-5.0); LYMPH % 19.8 % (24.0-44.0); MEAN CORPUSCULAR HGB CONC 32.2 g/dl (32.0-36.5); MEAN CORPUSCULAR VOLUME 80.6 fl (80.0-96.0); MONO # 0.3 10^3/uL (0.0-0.8); MONO % 4.5 % (2.0-8.0); NEUTROPHILS # 4.6 10^3/uL (1.5-8.5); NEUTROPHILS % 69.4 % (36.0-66.0); PLATELET COUNT, AUTOMATED 211 10^3/uL (150-450); RED BLOOD COUNT 4.39 10^6/uL (4.00-5.40); WHITE BLOOD COUNT 6.7 10^3/uL (4.0-10.0)
[2021-12-18 17:49] LABS: ALBUMIN 1.9 GM/DL (3.2-5.2); BILIRUBIN,TOTAL 0.8 MG/DL (0.2-1.0); CALCIUM LEVEL 8.6 MG/DL (8.8-10.2); CREATININE FOR GFR 1.16 MG/DL (0.55-1.30); GLOMERULAR FILTRATION RATE 49.3 (>45); MAGNESIUM LEVEL 1.6 MG/DL (1.8-2.4); POTASSIUM SERUM 3.8 MEQ/L (3.5-5.1); TOTAL PROTEIN 5.7 GM/DL (6.4-8.2)
[2021-12-18] MEDS ORDERED: MAG SULF 1GM/100ML (MAG RUN) 1 GM in IV 1 EA IV ONE (17:55)
[2021-12-18 19:29] VITALS: BP 126/58
[2021-12-18] MEDS: SUCRALFATE 1 GM TAB PO SCH (20:30)
[2021-12-18] MEDS: ENOXAPARIN 40MG/0.4ML SYRINGE (J1650 PER 10MG) SC SCH (20:56)
[2021-12-18] MEDS ORDERED: ISOSORBIDE DIN. (ISORDIL) 20 MG TAB PO SCH (21:00)
[2021-12-18 22:17] LABS: ACETONE/KETONE 0.99 MG/DL (<2.81); CALCIUM LEVEL 8.7 MG/DL (8.8-10.2); CREATININE FOR GFR 1.22 MG/DL (0.55-1.30); GLOMERULAR FILTRATION RATE 46.5 (>45); POTASSIUM SERUM 4.6 MEQ/L (3.5-5.1)
[2021-12-19] VITALS (8 sets, daily range): BP systolic 109–165; BP diastolic 51–70; PULSE 64
[2021-12-19] MEDS: LACTULOSE 20 GM/30 ML SYRUP UD PO SCH ×3 (00:43→12:29)
[2021-12-19] MEDS: INSULIN LISPRO (NovoLOG) PER UNIT SC SCH ×6 (00:43→21:48)
[2021-12-19 01:17] LABS: CALCIUM LEVEL 8.7 MG/DL (8.8-10.2); CREATININE FOR GFR 1.11 MG/DL (0.55-1.30); GLOMERULAR FILTRATION RATE 51.9 (>45); POTASSIUM SERUM 3.1 MEQ/L (3.5-5.1)
[2021-12-19] MEDS: KCL 10MEQ/100ML SWI (KRUN) 10 MEQ in IV 1 EA IV SCH ×2 (03:57→05:18)
[2021-12-19] MEDS: PIPERACILLIN/TAZOBACTAM SOD 3.375 GM in D5W MINI-BAG PLUS 50 ML IV SCH ×3 (03:57→18:25)
[2021-12-19] MEDS: LEVOTHYROXINE 100MCG TABLET (0.1MG) PO SCH (05:31)
[2021-12-19 06:04] LABS: BASO # 0.1 10^3/uL (0.0-0.2); BASO % 0.8 % (0.0-1.0); EOS # 0.7 10^3/uL (0.0-0.5); EOS % 7.7 % (0.0-3.0); HEMATOCRIT 32.3 % (36.0-47.0); HEMOGLOBIN 10.5 g/dl (12.0-15.5); LYMPH % 23.3 % (24.0-44.0); MEAN CORPUSCULAR HEMOGLOBIN 26.1 pg (27.0-33.0); MEAN CORPUSCULAR HGB CONC 32.5 g/dl (32.0-36.5); MEAN CORPUSCULAR VOLUME 80.1 fl (80.0-96.0); MONO # 1.3 10^3/uL (0.0-0.8); MONO % 14.8 % (2.0-8.0); NEUTROPHILS # 4.6 10^3/uL (1.5-8.5); NEUTROPHILS % 53.1 % (36.0-66.0); PLATELET COUNT, AUTOMATED 215 10^3/uL (150-450); RED BLOOD COUNT 4.03 10^6/uL (4.00-5.40); WHITE BLOOD COUNT 8.7 10^3/uL (4.0-10.0)
[2021-12-19 07:01] LABS: ALBUMIN 2.6 GM/DL (3.2-5.2); BILIRUBIN,TOTAL 0.8 MG/DL (0.2-1.0); CALCIUM LEVEL 8.8 MG/DL (8.8-10.2); CREATININE FOR GFR 1.05 MG/DL (0.55-1.30); GLOMERULAR FILTRATION RATE 55.3 (>45); MAGNESIUM LEVEL 1.7 MG/DL (1.8-2.4); POTASSIUM SERUM 3.4 MEQ/L (3.5-5.1); TOTAL PROTEIN 5.4 GM/DL (6.4-8.2)
[2021-12-19] MEDS ORDERED: POTASSIUM CHLORIDE 10MEQ SR TABLET PO ONE (07:10)
[2021-12-19] MEDS ORDERED: MAG SULF 1GM/100ML (MAG RUN) 1 GM in IV 1 EA IV ONE (07:10)
[2021-12-19] MEDS: ENOXAPARIN 40MG/0.4ML SYRINGE (J1650 PER 10MG) SC SCH (09:00)
[2021-12-19] MEDS: LEVEMIR (INSULIN DETEMIR) 1 UNITS/0.01ML SC SCH ×2 (09:00→21:48)
[2021-12-19] MEDS ORDERED: amLODIPine 5 MG TAB PO SCH (09:00)
[2021-12-19] MEDS ORDERED: atenoloL 50 MG TAB PO SCH (09:00)
[2021-12-19] MEDS ORDERED: ASPIRIN 81MG ENTERIC TABLET PO SCH (09:00)
[2021-12-19] MEDS: SUCRALFATE 1 GM TAB PO SCH ×3 (09:25→21:48)
[2021-12-19] MEDS: PANTOPRAZOLE 40MG VIAL IV SCH (09:26)
[2021-12-19] MEDS ORDERED: SPIRONOLACTONE 50 MG TAB PO ONE (10:45)
[2021-12-19 14:37] LABS: CK-MB VALUE MASS 2.5 NG/ML (<3.6); MB/CK RELATIVE INDEX 2.07 (< OR =4)
[2021-12-19 15:54] LABS: CK-MB VALUE MASS 2.7 NG/ML (<3.6); MB/CK RELATIVE INDEX 2.16 (< OR =4)
[2021-12-19] MEDS: SPIRONOLACTONE 50 MG TAB PO SCH (16:44)
[2021-12-20] VITALS: BP 127/58
[2021-12-20] MEDS: PIPERACILLIN/TAZOBACTAM SOD 3.375 GM in D5W MINI-BAG PLUS 50 ML IV SCH ×2 (01:51→06:32)
[2021-12-20 04:00] VITALS: BP 138/63
[2021-12-20 05:11] LABS: BASO # 0.1 10^3/uL (0.0-0.2); BASO % 0.9 % (0.0-1.0); EOS # 0.6 10^3/uL (0.0-0.5); HEMATOCRIT 31.7 % (36.0-47.0); HEMOGLOBIN 10.1 g/dl (12.0-15.5); LYMPH # 1.6 10^3/uL (1.5-5.0); LYMPH % 22.7 % (24.0-44.0); MEAN CORPUSCULAR HGB CONC 31.9 g/dl (32.0-36.5); MEAN CORPUSCULAR VOLUME 81.7 fl (80.0-96.0); MONO # 1.1 10^3/uL (0.0-0.8); MONO % 16.7 % (2.0-8.0); NEUTROPHILS # 3.5 10^3/uL (1.5-8.5); NEUTROPHILS % 51.3 % (36.0-66.0); PLATELET COUNT, AUTOMATED 201 10^3/uL (150-450); RED BLOOD COUNT 3.88 10^6/uL (4.00-5.40); WHITE BLOOD COUNT 6.8 10^3/uL (4.0-10.0)
[2021-12-20 05:58] LABS: BILIRUBIN,TOTAL 0.6 MG/DL (0.2-1.0); CREATININE FOR GFR 1.22 MG/DL (0.55-1.30); GLOMERULAR FILTRATION RATE 46.5 (>45); MAGNESIUM LEVEL 1.9 MG/DL (1.8-2.4); POTASSIUM SERUM 3.6 MEQ/L (3.5-5.1); TOTAL PROTEIN 5.2 GM/DL (6.4-8.2)
[2021-12-20] MEDS: LEVOTHYROXINE 100MCG TABLET (0.1MG) PO SCH (06:32)
[2021-12-20 08:00] VITALS: BP 137/63
[2021-12-20] MEDS: PANTOPRAZOLE 40MG VIAL IV SCH (08:18)
[2021-12-20] MEDS: SUCRALFATE 1 GM TAB PO SCH ×3 (08:19→20:22)
[2021-12-20] MEDS: SPIRONOLACTONE 50 MG TAB PO SCH ×2 (08:19→16:12)
[2021-12-20] MEDS: INSULIN LISPRO (NovoLOG) PER UNIT SC SCH ×4 (08:19→20:12)
[2021-12-20] MEDS: LEVEMIR (INSULIN DETEMIR) 1 UNITS/0.01ML SC SCH ×2 (08:19→20:22)
[2021-12-20] MEDS: ENOXAPARIN 40MG/0.4ML SYRINGE (J1650 PER 10MG) SC SCH (08:27)
[2021-12-20 12:00] VITALS: BP 158/68
[2021-12-20] MEDS: DULoxetine 30MG CAPSULE (CYMBALTA) PO SCH (14:18)
[2021-12-20] MEDS: atenoloL 50 MG TAB PO SCH (14:19)
[2021-12-20 16:00] VITALS: BP 148/68
[2021-12-20] MEDS: TORSEMIDE 20 MG TAB PO SCH (16:08)
[2021-12-20 20:06] VITALS: BP 147/67
[2021-12-20] MEDS: ATORVASTATIN 20 MG TAB PO SCH (20:22)
[2021-12-20] MEDS: HYDROcodone/APAP LIQUID 7.5-325MG 15ML UDC (LORTAB ELIXIR) PO PRN (20:22)
[2021-12-21 04:16] VITALS: BP 133/64
[2021-12-21 05:17] LABS: BASO # 0.1 10^3/uL (0.0-0.2); EOS # 0.6 10^3/uL (0.0-0.5); EOS % 9.1 % (0.0-3.0); HEMATOCRIT 32.3 % (36.0-47.0); HEMOGLOBIN 10.3 g/dl (12.0-15.5); LYMPH # 1.9 10^3/uL (1.5-5.0); LYMPH % 26.6 % (24.0-44.0); MEAN CORPUSCULAR HEMOGLOBIN 26.6 pg (27.0-33.0); MEAN CORPUSCULAR HGB CONC 31.9 g/dl (32.0-36.5); MEAN CORPUSCULAR VOLUME 83.5 fl (80.0-96.0); MONO # 1.3 10^3/uL (0.0-0.8); MONO % 18.5 % (2.0-8.0); NEUTROPHILS # 3.1 10^3/uL (1.5-8.5); NEUTROPHILS % 44.5 % (36.0-66.0); PLATELET COUNT, AUTOMATED 191 10^3/uL (150-450); RED BLOOD COUNT 3.87 10^6/uL (4.00-5.40)
[2021-12-21] MEDS: LEVOTHYROXINE 100MCG TABLET (0.1MG) PO SCH (05:31)
[2021-12-21 05:56] LABS: ALBUMIN 1.9 GM/DL (3.2-5.2); BILIRUBIN,TOTAL 0.7 MG/DL (0.2-1.0); CALCIUM LEVEL 7.8 MG/DL (8.8-10.2); CREATININE FOR GFR 1.12 MG/DL (0.55-1.30); GLOMERULAR FILTRATION RATE 51.3 (>45); MAGNESIUM LEVEL 1.9 MG/DL (1.8-2.4); POTASSIUM SERUM 4.6 MEQ/L (3.5-5.1); TOTAL PROTEIN 5.6 GM/DL (6.4-8.2)
[2021-12-21 08:00] VITALS: BP 128/60
[2021-12-21] MEDS: DULoxetine 30MG CAPSULE (CYMBALTA) PO SCH (08:41)
[2021-12-21] MEDS: TORSEMIDE 20 MG TAB PO SCH ×2 (08:42→17:17)
[2021-12-21] MEDS: PANTOPRAZOLE 40MG TAB (PROTONIX) PO SCH (08:42)
[2021-12-21] MEDS: SUCRALFATE 1 GM TAB PO SCH ×3 (08:42→22:19)
[2021-12-21] MEDS: SPIRONOLACTONE 50 MG TAB PO SCH ×2 (08:42→17:17)
[2021-12-21] MEDS: LEVEMIR (INSULIN DETEMIR) 1 UNITS/0.01ML SC SCH ×2 (08:43→22:20)
[2021-12-21] MEDS: INSULIN LISPRO (NovoLOG) PER UNIT SC SCH ×4 (08:43→21:00)
[2021-12-21] MEDS: ENOXAPARIN 40MG/0.4ML SYRINGE (J1650 PER 10MG) SC SCH (08:43)
[2021-12-21] MEDS: atenoloL 50 MG TAB PO SCH (08:43)
[2021-12-21 16:00] VITALS: BP 155/70
[2021-12-21 20:00] VITALS: BP 146/67
[2021-12-21] MEDS: ATORVASTATIN 20 MG TAB PO SCH (22:19)
[2021-12-22 04:00] VITALS: BP 164/60
[2021-12-22 05:00] VITALS: BP 151/65
[2021-12-22 05:34] LABS: BASO # 0.1 10^3/uL (0.0-0.2); BASO % 1.2 % (0.0-1.0); EOS # 0.6 10^3/uL (0.0-0.5); EOS % 7.3 % (0.0-3.0); HEMATOCRIT 36.8 % (36.0-47.0); HEMOGLOBIN 11.6 g/dl (12.0-15.5); LYMPH # 2.5 10^3/uL (1.5-5.0); LYMPH % 29.2 % (24.0-44.0); MEAN CORPUSCULAR HEMOGLOBIN 25.8 pg (27.0-33.0); MEAN CORPUSCULAR HGB CONC 31.5 g/dl (32.0-36.5); MONO # 1.3 10^3/uL (0.0-0.8); MONO % 15.7 % (2.0-8.0); NEUTROPHILS % 46.2 % (36.0-66.0); PLATELET COUNT, AUTOMATED 277 10^3/uL (150-450); RED BLOOD COUNT 4.49 10^6/uL (4.00-5.40); WHITE BLOOD COUNT 8.6 10^3/uL (4.0-10.0)
[2021-12-22 06:22] LABS: ALBUMIN 2.2 GM/DL (3.2-5.2); ALT/SGPT 56 U/L (12-78); BILIRUBIN,TOTAL 0.6 MG/DL (0.2-1.0); BLOOD UREA NITROGEN 36 MG/DL (7-18); CALCIUM LEVEL 8.2 MG/DL (8.8-10.2); CARBON DIOXIDE LEVEL 30 MEQ/L (21-32); CHLORIDE LEVEL 104 MEQ/L (98-107); CREATININE FOR GFR 0.83 MG/DL (0.55-1.30); GLOMERULAR FILTRATION RATE > 60.0 (>45); GLUCOSE, FASTING 67 MG/DL (70-100); MAGNESIUM LEVEL 1.7 MG/DL (1.8-2.4); POTASSIUM SERUM 3.3 MEQ/L (3.5-5.1); SODIUM LEVEL 137 MEQ/L (136-145); TOTAL PROTEIN 6.5 GM/DL (6.4-8.2)
[2021-12-22] MEDS: LEVOTHYROXINE 100MCG TABLET (0.1MG) PO SCH (06:32)
[2021-12-22] MEDS: INSULIN LISPRO (NovoLOG) PER UNIT SC SCH ×4 (07:30→21:00)
[2021-12-22 08:00] VITALS: BP 160/78
[2021-12-22] MEDS ORDERED: MAGNESIUM GLUCONATE 500 MG TAB PO ONE (09:00)
[2021-12-22] MEDS: atenoloL 50 MG TAB PO SCH (09:00)
[2021-12-22] MEDS: ENOXAPARIN 40MG/0.4ML SYRINGE (J1650 PER 10MG) SC SCH ×2 (09:00→09:24)
[2021-12-22] MEDS: POTASSIUM CHLORIDE 10MEQ SR TABLET PO SCH ×3 (09:24→22:11)
[2021-12-22] MEDS: SUCRALFATE 1 GM TAB PO SCH ×3 (09:24→22:11)
[2021-12-22] MEDS: DULoxetine 30MG CAPSULE (CYMBALTA) PO SCH (09:26)
[2021-12-22] MEDS: TORSEMIDE 20 MG TAB PO SCH ×2 (09:26→17:43)
[2021-12-22] MEDS: SPIRONOLACTONE 50 MG TAB PO SCH ×2 (09:26→17:43)
[2021-12-22] MEDS: PANTOPRAZOLE 40MG TAB (PROTONIX) PO SCH (09:26)
[2021-12-22] MEDS: LEVEMIR (INSULIN DETEMIR) 1 UNITS/0.01ML SC SCH ×2 (10:50→22:10)
[2021-12-22] MEDS ORDERED: ALDA50TA2 PO (11:46)
[2021-12-22] MEDS ORDERED: TORS20TA2 PO (11:46)
[2021-12-22] MEDS ORDERED: INSUDET SC ×2 (11:46)
[2021-12-22] MEDS ORDERED: MAGN500T6 PO (14:05)
[2021-12-22 16:00] VITALS: BP 133/63
[2021-12-22 19:27] LABS: BLOOD UREA NITROGEN 35 MG/DL (7-18); CALCIUM LEVEL 8.1 MG/DL (8.8-10.2); CARBON DIOXIDE LEVEL 26 MEQ/L (21-32); CHLORIDE LEVEL 104 MEQ/L (98-107); CREATININE FOR GFR 0.97 MG/DL (0.55-1.30); GLOMERULAR FILTRATION RATE > 60.0 (>45); GLUCOSE, FASTING 283 MG/DL (70-100); SODIUM LEVEL 137 MEQ/L (136-145)
[2021-12-22 20:00] VITALS: BP 150/62
[2021-12-22] MEDS: ATORVASTATIN 20 MG TAB PO SCH (22:11)
[2021-12-23] MEDS: LEVOTHYROXINE 100MCG TABLET (0.1MG) PO SCH (05:51)
[2021-12-23 06:03] LABS: BASO # 0.1 10^3/uL (0.0-0.2); BASO % 1.1 % (0.0-1.0); EOS # 0.5 10^3/uL (0.0-0.5); EOS % 7.4 % (0.0-3.0); HEMATOCRIT 32.2 % (36.0-47.0); HEMOGLOBIN 9.9 g/dl (12.0-15.5); LYMPH # 1.5 10^3/uL (1.5-5.0); LYMPH % 23.8 % (24.0-44.0); MEAN CORPUSCULAR HEMOGLOBIN 25.8 pg (27.0-33.0); MEAN CORPUSCULAR HGB CONC 30.7 g/dl (32.0-36.5); MEAN CORPUSCULAR VOLUME 83.9 fl (80.0-96.0); MONO # 0.9 10^3/uL (0.0-0.8); MONO % 13.9 % (2.0-8.0); NEUTROPHILS # 3.5 10^3/uL (1.5-8.5); NEUTROPHILS % 53.6 % (36.0-66.0); PLATELET COUNT, AUTOMATED 202 10^3/uL (150-450); RED BLOOD COUNT 3.84 10^6/uL (4.00-5.40); WHITE BLOOD COUNT 6.5 10^3/uL (4.0-10.0)
[2021-12-23 06:46] LABS: ALBUMIN 2.1 GM/DL (3.2-5.2); ALT/SGPT 43 U/L (12-78); BILIRUBIN,TOTAL 0.5 MG/DL (0.2-1.0); BLOOD UREA NITROGEN 30 MG/DL (7-18); CALCIUM LEVEL 7.7 MG/DL (8.8-10.2); CARBON DIOXIDE LEVEL 30 MEQ/L (21-32); CHLORIDE LEVEL 105 MEQ/L (98-107); CREATININE FOR GFR 0.77 MG/DL (0.55-1.30); GLOMERULAR FILTRATION RATE > 60.0 (>45); GLUCOSE, FASTING 120 MG/DL (70-100); MAGNESIUM LEVEL 1.5 MG/DL (1.8-2.4); POTASSIUM SERUM 4.2 MEQ/L (3.5-5.1); SODIUM LEVEL 139 MEQ/L (136-145); TOTAL PROTEIN 5.7 GM/DL (6.4-8.2)
[2021-12-23 08:00] VITALS: BP 186/78
[2021-12-23] MEDS: LEVEMIR (INSULIN DETEMIR) 1 UNITS/0.01ML SC SCH ×2 (08:46→20:52)
[2021-12-23] MEDS: INSULIN LISPRO (NovoLOG) PER UNIT SC SCH ×4 (08:48→20:35)
[2021-12-23] MEDS: TORSEMIDE 20 MG TAB PO SCH ×2 (08:49→17:52)
[2021-12-23] MEDS: SPIRONOLACTONE 50 MG TAB PO SCH ×2 (08:49→17:52)
[2021-12-23] MEDS: POTASSIUM CHLORIDE 10MEQ SR TABLET PO SCH (08:49)
[2021-12-23] MEDS: SUCRALFATE 1 GM TAB PO SCH ×3 (08:49→20:52)
[2021-12-23] MEDS: DULoxetine 30MG CAPSULE (CYMBALTA) PO SCH (08:50)
[2021-12-23] MEDS: PANTOPRAZOLE 40MG TAB (PROTONIX) PO SCH (08:51)
[2021-12-23] MEDS: ENOXAPARIN 40MG/0.4ML SYRINGE (J1650 PER 10MG) SC SCH (08:52)
[2021-12-23] MEDS: atenoloL 50 MG TAB PO SCH (08:52)
[2021-12-23] MEDS ORDERED: hydrALAZINE 20MG/ML 1ML VIAL (J0360 PER 20MG) IV ONE (16:30)
[2021-12-23 16:56] VITALS: BP 172/72
[2021-12-23] MEDS: ATORVASTATIN 20 MG TAB PO SCH (20:52)
[2021-12-24] VITALS: BP 127/58
[2021-12-24] MEDS: HYDROcodone/APAP LIQUID 7.5-325MG 15ML UDC (LORTAB ELIXIR) PO PRN (01:14)
[2021-12-24] MEDS: LEVOTHYROXINE 100MCG TABLET (0.1MG) PO SCH (06:28)
[2021-12-24] MEDS: INSULIN LISPRO (NovoLOG) PER UNIT SC SCH ×4 (07:29→20:45)
[2021-12-24 08:00] VITALS: BP 154/67
[2021-12-24] MEDS: SPIRONOLACTONE 50 MG TAB PO SCH ×2 (08:17→17:03)
[2021-12-24] MEDS: atenoloL 50 MG TAB PO SCH (08:17)
[2021-12-24] MEDS: TORSEMIDE 20 MG TAB PO SCH ×2 (08:18→17:03)
[2021-12-24] MEDS: DULoxetine 30MG CAPSULE (CYMBALTA) PO SCH (08:18)
[2021-12-24] MEDS: SUCRALFATE 1 GM TAB PO SCH ×3 (08:18→21:01)
[2021-12-24] MEDS: POTASSIUM CHLORIDE 10MEQ SR TABLET PO SCH (08:19)
[2021-12-24] MEDS: ENOXAPARIN 40MG/0.4ML SYRINGE (J1650 PER 10MG) SC SCH ×2 (08:19→08:28)
[2021-12-24] MEDS: PANTOPRAZOLE 40MG TAB (PROTONIX) PO SCH (08:19)
[2021-12-24] MEDS: LEVEMIR (INSULIN DETEMIR) 1 UNITS/0.01ML SC SCH ×2 (08:20→21:00)
[2021-12-24 19:41] VITALS: BP 133/60
[2021-12-24] MEDS: ATORVASTATIN 20 MG TAB PO SCH (21:00)
[2021-12-25] MEDS: LEVOTHYROXINE 100MCG TABLET (0.1MG) PO SCH (06:02)
[2021-12-25 07:29] VITALS: BP 167/73
[2021-12-25] MEDS: INSULIN LISPRO (NovoLOG) PER UNIT SC SCH ×4 (07:30→20:08)
[2021-12-25] MEDS: SUCRALFATE 1 GM TAB PO SCH ×3 (08:12→20:08)
[2021-12-25] MEDS: PANTOPRAZOLE 40MG TAB (PROTONIX) PO SCH (08:12)
[2021-12-25] MEDS: POTASSIUM CHLORIDE 10MEQ SR TABLET PO SCH (08:13)
[2021-12-25] MEDS: atenoloL 50 MG TAB PO SCH (08:13)
[2021-12-25] MEDS: DULoxetine 30MG CAPSULE (CYMBALTA) PO SCH (08:13)
[2021-12-25] MEDS: SPIRONOLACTONE 50 MG TAB PO SCH ×2 (08:14→16:39)
[2021-12-25] MEDS: TORSEMIDE 20 MG TAB PO SCH ×2 (08:14→16:39)
[2021-12-25] MEDS: ENOXAPARIN 40MG/0.4ML SYRINGE (J1650 PER 10MG) SC SCH (08:14)
[2021-12-25] MEDS: LEVEMIR (INSULIN DETEMIR) 1 UNITS/0.01ML SC SCH ×2 (08:15→20:11)
[2021-12-25 15:09] LABS: BLOOD UREA NITROGEN 28 MG/DL (7-18); CARBON DIOXIDE LEVEL 26 MEQ/L (21-32); CHLORIDE LEVEL 108 MEQ/L (98-107); CREATININE FOR GFR 0.88 MG/DL (0.55-1.30); GLOMERULAR FILTRATION RATE > 60.0 (>45); GLUCOSE, FASTING 117 MG/DL (70-100); POTASSIUM SERUM 4.4 MEQ/L (3.5-5.1); SODIUM LEVEL 138 MEQ/L (136-145)
[2021-12-25 19:49] VITALS: BP 139/66
[2021-12-25] MEDS: ATORVASTATIN 20 MG TAB PO SCH (20:08)
[2021-12-26] MEDS: LEVOTHYROXINE 100MCG TABLET (0.1MG) PO SCH (05:15)
[2021-12-26] MEDS: INSULIN LISPRO (NovoLOG) PER UNIT SC SCH ×4 (07:25→20:17)
[2021-12-26 08:00] VITALS: BP 159/68
[2021-12-26] MEDS: ENOXAPARIN 40MG/0.4ML SYRINGE (J1650 PER 10MG) SC SCH (09:00)
[2021-12-26] MEDS: SPIRONOLACTONE 50 MG TAB PO SCH ×2 (09:34→16:56)
[2021-12-26] MEDS: DULoxetine 30MG CAPSULE (CYMBALTA) PO SCH (09:34)
[2021-12-26] MEDS: TORSEMIDE 20 MG TAB PO SCH ×2 (09:34→16:57)
[2021-12-26] MEDS: atenoloL 50 MG TAB PO SCH (09:34)
[2021-12-26] MEDS: POTASSIUM CHLORIDE 10MEQ SR TABLET PO SCH (09:35)
[2021-12-26] MEDS: PANTOPRAZOLE 40MG TAB (PROTONIX) PO SCH (09:35)
[2021-12-26] MEDS: SUCRALFATE 1 GM TAB PO SCH ×3 (09:35→20:17)
[2021-12-26] MEDS: LEVEMIR (INSULIN DETEMIR) 1 UNITS/0.01ML SC SCH ×2 (09:36→20:17)
[2021-12-26 14:47] VITALS: BP 148/63
[2021-12-26 15:23] VITALS: BP 142/61
[2021-12-26 16:00] VITALS: BP 139/62
[2021-12-26] MEDS: ATORVASTATIN 20 MG TAB PO SCH (20:17)
[2021-12-26 20:37] VITALS: BP 143/63
[2021-12-27] MEDS: LEVOTHYROXINE 100MCG TABLET (0.1MG) PO SCH (05:01)
[2021-12-27 07:50] VITALS: BP 147/66
[2021-12-27] MEDS: SPIRONOLACTONE 50 MG TAB PO SCH (08:59)
[2021-12-27] MEDS: TORSEMIDE 20 MG TAB PO SCH (08:59)
[2021-12-27] MEDS: DULoxetine 30MG CAPSULE (CYMBALTA) PO SCH (08:59)
[2021-12-27] MEDS: SUCRALFATE 1 GM TAB PO SCH (08:59)
[2021-12-27 09:00] VITALS: BP 169/71
[2021-12-27] MEDS: ENOXAPARIN 40MG/0.4ML SYRINGE (J1650 PER 10MG) SC SCH ×2 (09:00→09:04)
[2021-12-27] MEDS: PANTOPRAZOLE 40MG TAB (PROTONIX) PO SCH (09:00)
[2021-12-27] MEDS: POTASSIUM CHLORIDE 10MEQ SR TABLET PO SCH (09:00)
[2021-12-27] MEDS: INSULIN LISPRO (NovoLOG) PER UNIT SC SCH ×2 (09:00→11:58)
[2021-12-27] MEDS: atenoloL 50 MG TAB PO SCH (09:00)
[2021-12-27] MEDS: LEVEMIR (INSULIN DETEMIR) 1 UNITS/0.01ML SC SCH (09:03)
[2021-12-27 09:17] LABS: BLOOD UREA NITROGEN 26 MG/DL (7-18); CALCIUM LEVEL 8.2 MG/DL (8.8-10.2); CARBON DIOXIDE LEVEL 23 MEQ/L (21-32); CHLORIDE LEVEL 111 MEQ/L (98-107); CREATININE FOR GFR 0.93 MG/DL (0.55-1.30); GLOMERULAR FILTRATION RATE > 60.0 (>45); GLUCOSE, FASTING 123 MG/DL (70-100); POTASSIUM SERUM 4.8 MEQ/L (3.5-5.1); SODIUM LEVEL 139 MEQ/L (136-145)
== END 2021-12-27 15:48 | disposition home health service (06) | DRG 71 ==
LOC: M ED 05:37 → M ED INP 14:43 → M PCU 12-19 00:26
PROVIDERS: ADMIT Internal Medicine; ATTEND Internal Medicine
PROC: 30233J1 Transfusion of Nonautologous Serum Albumin into Peripheral Vein, Percutaneous Approach (ICD-10-PCS; 2021-12-18)
PROC: 0W9G3ZX Drainage of Peritoneal Cavity, Percutaneous Approach, Diagnostic (ICD-10-PCS; principal; 2021-12-18 15:09)
PROC: 0W9G3ZZ Drainage of Peritoneal Cavity, Percutaneous Approach (ICD-10-PCS; 2021-12-26)
DX: G93.41 Metabolic encephalopathy (principal); I50.32 Chronic diastolic (congestive) heart failure; R18.8 Other ascites; N17.9 Acute kidney failure, unspecified; E87.20 Acidosis, unspecified; I13.0 Hypertensive heart and chronic kidney disease with heart failure and stage 1 through stage 4 chronic kidney disease, or unspecified chronic kidney disease; E03.9 Hypothyroidism, unspecified; K74.60 Unspecified cirrhosis of liver; K75.81 Nonalcoholic steatohepatitis (NASH); M79.7 Fibromyalgia; N18.30 Chronic kidney disease, stage 3 unspecified; E11.40 Type 2 diabetes mellitus with diabetic neuropathy, unspecified; K21.9 Gastro-esophageal reflux disease without esophagitis; E78.5 Hyperlipidemia, unspecified; E11.65 Type 2 diabetes mellitus with hyperglycemia; E87.6 Hypokalemia; R53.1 Weakness; F39 Unspecified mood [affective] disorder; I25.10 Atherosclerotic heart disease of native coronary artery without angina pectoris; D64.9 Anemia, unspecified; Z95.5 Presence of coronary angioplasty implant and graft; Z98.41 Cataract extraction status, right eye; Z98.42 Cataract extraction status, left eye; Z90.49 Acquired absence of other specified parts of digestive tract; Z87.891 Personal history of nicotine dependence; Z79.82 Long term (current) use of aspirin; Z79.4 Long term (current) use of insulin; Z79.890 Hormone replacement therapy; Z79.899 Other long term (current) drug therapy; Z88.1 Allergy status to other antibiotic agents; Z91.138 Patient's unintentional underdosing of medication regimen for other reason

== ENCOUNTER 2022-01-09 08:39 | Inpatient (IN) | payer MEDICARE, OTHER ==
[~2022-01-09] VITALS: Ht 167.6 cm; Wt 81.3 kg
[~2022-01-09 08:39] MED LIST changes: +ALDA50TA2 PO; +HYDR-4517 PO; +LACT10SO3 PO; +LEVO100T5 PO; +MAGN500T6 PO; +TRUL0.5I SC
[2022-01-09 09:29] LABS: VENOUS BASE EXCESS 9.7 (-2.0-2.0); VENOUS HCO3 34.3 MEQ/L (23.0-27.0); VENOUS O2 SATURATION 51.8 % (60.0-80.0); VENOUS PARTIAL PRESSURE CO2 46.9 mmHg (38.0-50.0); VENOUS PARTIAL PRESSURE O2 27.5 mmHg (30.0-50.0); VENOUS PH 7.482 UNITS (7.330-7.430); VENOUS STANDARD HCO3 32.5 MEQ/L; VENOUS TOTAL CO2 35.7 MEQ/L (24.0-28.0)
[2022-01-09 09:37] LABS: BASO % 0.8 % (0.0-1.0); EOS # 0.4 10^3/uL (0.0-0.5); EOS % 9.1 % (0.0-3.0); HEMATOCRIT 27.9 % (36.0-47.0); HEMOGLOBIN 9.4 g/dl (12.0-15.5); LYMPH # 1.2 10^3/uL (1.5-5.0); LYMPH % 25.6 % (24.0-44.0); MEAN CORPUSCULAR HEMOGLOBIN 26.5 pg (27.0-33.0); MEAN CORPUSCULAR HGB CONC 33.7 g/dl (32.0-36.5); MEAN CORPUSCULAR VOLUME 78.6 fl (80.0-96.0); MONO # 0.6 10^3/uL (0.0-0.8); MONO % 12.6 % (2.0-8.0); NEUTROPHILS # 2.5 10^3/uL (1.5-8.5); NEUTROPHILS % 51.7 % (36.0-66.0); PLATELET COUNT, AUTOMATED 183 10^3/uL (150-450); RED BLOOD COUNT 3.55 10^6/uL (4.00-5.40); WHITE BLOOD COUNT 4.8 10^3/uL (4.0-10.0)
[2022-01-09 10:00] LABS: OSMOLALITY SERUM 301 MOSM/KG (280-301)
[2022-01-09] MEDS ORDERED: NS 1,000 ML IV ONE ×3 (10:00→22:25)
[2022-01-09 10:15] LABS: CK-MB VALUE MASS 1.3 NG/ML (<3.6); MB/CK RELATIVE INDEX 2.89 (< OR =4)
[2022-01-09 10:20] LABS: ACETAMINOPHEN LEVEL 2.9 UG/ML (10.0-30.0); ACETONE/KETONE 0.75 MG/DL (<2.81); ALKALINE PHOSPHATASE 232 U/L (45-117); ALT/SGPT 20 U/L (12-78); AST/SGOT 26 U/L (7-37); BILIRUBIN,DIRECT 0.2 MG/DL (0.0-0.2); BILIRUBIN,TOTAL 0.4 MG/DL (0.2-1.0); BLOOD UREA NITROGEN 40 MG/DL (7-18); CALCIUM LEVEL 8.5 MG/DL (8.8-10.2); CARBON DIOXIDE LEVEL 34 MEQ/L (21-32); CHLORIDE LEVEL 79 MEQ/L (98-107); CREATININE FOR GFR 1.58 MG/DL (0.55-1.30); ETHYL ALCOHOL (ETHANOL) 0.003 % (0.000-0.010); GLOMERULAR FILTRATION RATE 34.5 (>45); GLUCOSE, FASTING 692 MG/DL (70-100); LIPASE 238 U/L (73-393); MAGNESIUM LEVEL 1.6 MG/DL (1.8-2.4); POTASSIUM SERUM 2.6 MEQ/L (3.5-5.1); SALICYLATE LEVEL < 1.7 MG/DL (5.0-30.0); SODIUM LEVEL 124 MEQ/L (136-145); TOTAL PROTEIN 5.6 GM/DL (6.4-8.2)
[2022-01-09] MEDS ORDERED: MAG SULF 1GM/100ML (MAG RUN) 1 GM in IV 1 EA IV ONE ×2 (10:55→17:40)
[2022-01-09] MEDS ORDERED: KCL 10MEQ/100ML SWI (KRUN) 10 MEQ in IV 1 EA IV ONE ×2 (10:55→15:50)
[2022-01-09 12:49] LABS: CK-MB VALUE MASS 1.5 NG/ML (<3.6); MB/CK RELATIVE INDEX 2.46 (< OR =4)
[2022-01-09 17:23] LABS: AMPHETAMINES LEVEL URINE NEGATIVE (NEGATIVE); BARBITURATES URINE NEGATIVE (NEGATIVE); BENZODIAZEPINES URINE NEGATIVE (NEGATIVE); CANNABINOIDS URINE NEGATIVE (NEGATIVE); COCAINE METABOLITE URINE NEGATIVE (NEGATIVE); METHADONE URINE NEGATIVE (NEGATIVE); OPIATES URINE NEGATIVE (NEGATIVE); PHENCYCLIDINE URINE NEGATIVE (NEGATIVE)
[2022-01-09] MEDS ORDERED: POTASSIUM CHLORIDE 10MEQ SR TABLET PO ONE ×3 (17:40→22:00)
[2022-01-09] MEDS ORDERED: DEXTROSE 50% 50 ML SYRINGE IV PRN (17:40)
[2022-01-09] MEDS ORDERED: NS 1,000 ML IV SCH (17:40)
[2022-01-09] MEDS ORDERED: GLUCOSE 4GM CHEW TABLET PO PRN (17:40)
[2022-01-09] MEDS ORDERED: GLUCAGON INJ 1MG VIAL SC PRN (17:40)
[2022-01-09] MEDS ORDERED: LEVEMIR (INSULIN DETEMIR) 1 UNITS/0.01ML SC ONE (17:40)
[2022-01-09] MEDS ORDERED: MAALOX 30 ML SUSP *UDC PO PRN (17:45)
[2022-01-09] MEDS ORDERED: ACETAMINOPHEN TAB 650MG DOSE (2X325MG) PO PRN (17:45)
[2022-01-09] MEDS ORDERED: MOM 30ML SUSPENSION UDC PO PRN (17:45)
[2022-01-09] MEDS: KCL 10MEQ/100ML SWI (KRUN) 10 MEQ in IV 1 EA IV SCH ×2 (18:35→20:29)
[2022-01-09 18:46] LABS: HEMATOCRIT 29.7 % (36.0-47.0); HEMOGLOBIN 9.6 g/dl (12.0-15.5); MEAN CORPUSCULAR HEMOGLOBIN 25.4 pg (27.0-33.0); MEAN CORPUSCULAR HGB CONC 32.3 g/dl (32.0-36.5); MEAN CORPUSCULAR VOLUME 78.6 fl (80.0-96.0); PLATELET COUNT, AUTOMATED 179 10^3/uL (150-450); RED BLOOD COUNT 3.78 10^6/uL (4.00-5.40); WHITE BLOOD COUNT 5.5 10^3/uL (4.0-10.0)
[2022-01-09 19:34] LABS: HEMOGLOBIN A1c > 14.0 % (4.0-6.0)
[2022-01-09] MEDS ORDERED: ACET1TAB55 PO (19:49)
[2022-01-09] MEDS ORDERED: HOME MED LIST COMPLETE! XX SCH (19:50)
[2022-01-09 20:22] LABS: BILIRUBIN,TOTAL 0.4 MG/DL (0.3-1.2); CALCIUM LEVEL 8.6 MG/DL (8.3-10.6); CREATININE FOR GFR 1.16 MG/DL (0.55-1.30); GLOMERULAR FILTRATION RATE 49.3 (>45); POTASSIUM SERUM 2.8 MMOL/L (3.5-5.1); TOTAL PROTEIN 5.4 G/DL
[2022-01-09] MEDS: KCL 40MEQ in NS 1000ML 1,000 ML IV SCH (20:30)
[2022-01-09] MEDS: DOCUSATE SODIUM 100MG CAPSULE PO SCH (21:00)
[2022-01-09] MEDS: INSULIN LISPRO (NovoLOG) PER UNIT SC SCH (21:01)
[2022-01-09] MEDS: SUCRALFATE 1 GM TAB PO SCH (21:05)
[2022-01-09] MEDS: HEPARIN SOD (PORCINE) 5000UNITS/ML 1ML VIAL/SYRINGE SC SCH (21:09)
[2022-01-09 21:39] LABS: HEMATOCRIT 28.6 % (36.0-47.0); HEMOGLOBIN 9.2 g/dl (12.0-15.5); MEAN CORPUSCULAR HEMOGLOBIN 25.6 pg (27.0-33.0); MEAN CORPUSCULAR HGB CONC 32.2 g/dl (32.0-36.5); MEAN CORPUSCULAR VOLUME 79.4 fl (80.0-96.0); PLATELET COUNT, AUTOMATED 178 10^3/uL (150-450); WHITE BLOOD COUNT 6.4 10^3/uL (4.0-10.0)
[2022-01-09 22:45] LABS: CALCIUM LEVEL 8.2 MG/DL (8.3-10.6); CREATININE FOR GFR 1.09 MG/DL (0.55-1.30); POTASSIUM SERUM 2.8 MMOL/L (3.5-5.1)
[2022-01-09] MEDS ORDERED: POTASSIUM CHLORIDE 10% LIQ 20 MEQ/15 ML UDC PO ONE (23:10)
[2022-01-09 23:51] VITALS: BP 116/55
[2022-01-10] VITALS (14 sets, daily range): BP systolic 108–156; BP diastolic 52–80
[2022-01-10 03:08] LABS: CALCIUM LEVEL 8.3 MG/DL (8.3-10.6); CREATININE FOR GFR 1.06 MG/DL (0.55-1.30); GLOMERULAR FILTRATION RATE 54.7 (>45); POTASSIUM SERUM 2.7 MMOL/L (3.5-5.1)
[2022-01-10] MEDS ORDERED: POTASSIUM CHLORIDE 10MEQ SR TABLET PO ONE ×2 (04:00→14:00)
[2022-01-10] MEDS: KCL 40MEQ in NS 1000ML 1,000 ML IV SCH (05:46)
[2022-01-10] MEDS: LEVOTHYROXINE 100MCG TABLET (0.1MG) PO SCH (05:46)
[2022-01-10] MEDS: HEPARIN SOD (PORCINE) 5000UNITS/ML 1ML VIAL/SYRINGE SC SCH ×4 (05:47→20:42)
[2022-01-10] MEDS: INSULIN LISPRO (NovoLOG) PER UNIT SC SCH ×6 (07:30→20:37)
[2022-01-10 07:44] LABS: HEMATOCRIT 31.6 % (36.0-47.0); MEAN CORPUSCULAR HEMOGLOBIN 25.1 pg (27.0-33.0); MEAN CORPUSCULAR HGB CONC 31.6 g/dl (32.0-36.5); MEAN CORPUSCULAR VOLUME 79.4 fl (80.0-96.0); PLATELET COUNT, AUTOMATED 209 10^3/uL (150-450); RED BLOOD COUNT 3.98 10^6/uL (4.00-5.40); WHITE BLOOD COUNT 8.5 10^3/uL (4.0-10.0)
[2022-01-10 08:30] LABS: BLOOD UREA NITROGEN 38 MG/DL (9-23); CALCIUM LEVEL 8.4 MG/DL (8.3-10.6); CARBON DIOXIDE LEVEL 33 MMOL/L (20-31); CHLORIDE LEVEL 89 MMOL/L (98-107); CREATININE FOR GFR 0.93 MG/DL (0.55-1.30); GLOMERULAR FILTRATION RATE > 60.0 (>45); GLUCOSE, FASTING 99 MG/DL (74-106); MAGNESIUM LEVEL 1.6 MG/DL (1.8-2.4); POTASSIUM SERUM 3.8 MMOL/L (3.5-5.1); SODIUM LEVEL 131 MMOL/L (136-145)
[2022-01-10] MEDS: amLODIPine 5 MG TAB PO SCH (09:00)
[2022-01-10] MEDS: MAG SULF 1GM/100ML (MAG RUN) 1 GM in IV 1 EA IV SCH ×2 (09:15→13:48)
[2022-01-10] MEDS: LEVEMIR (INSULIN DETEMIR) 1 UNITS/0.01ML SC SCH (09:17)
[2022-01-10] MEDS: DULoxetine 30MG CAPSULE (CYMBALTA) PO SCH (09:17)
[2022-01-10] MEDS: ASPIRIN 81MG ENTERIC TABLET PO SCH (09:17)
[2022-01-10] MEDS: DOCUSATE SODIUM 100MG CAPSULE PO SCH ×2 (09:17→20:41)
[2022-01-10] MEDS: SUCRALFATE 1 GM TAB PO SCH ×3 (09:17→20:41)
[2022-01-10 11:58] LABS: HEMATOCRIT 33.5 % (36.0-47.0); HEMOGLOBIN 10.5 g/dl (12.0-15.5); MEAN CORPUSCULAR HEMOGLOBIN 25.1 pg (27.0-33.0); MEAN CORPUSCULAR HGB CONC 31.3 g/dl (32.0-36.5); MEAN CORPUSCULAR VOLUME 80.1 fl (80.0-96.0); PLATELET COUNT, AUTOMATED 284 10^3/uL (150-450); RED BLOOD COUNT 4.18 10^6/uL (4.00-5.40); WHITE BLOOD COUNT 9.9 10^3/uL (4.0-10.0)
[2022-01-10] MEDS: cefTRIAXone SOD 1 GM in D5W MINI-BAG PLUS 50 ML IV SCH (13:02)
[2022-01-10] MEDS ORDERED: LIDOCAINE 1% MDV 20ML VIAL As Ordered ONE (14:51)
[2022-01-10 16:07] LABS: SPEC. GRAVITY BODY FLUIDS 1.018 (NOT ESTABLISHED)
[2022-01-10 16:09] LABS: APPEARANCE, BODY FLUID CLEAR (CLEAR); ASCITES FL COLOR PALE YELLOW (COLORLESS); SOURCE, BODY FLUID ASCITES
[2022-01-10] MEDS: TORSEMIDE 20 MG TAB PO SCH (16:36)
[2022-01-10] MEDS: SPIRONOLACTONE 50 MG TAB PO SCH (16:36)
[2022-01-10 17:24] LABS: SOURCE, BODY FLUID GLUCOSE ASCITES; SOURCE, BODY FLUID TOT PROTEIN ASCITES
[2022-01-10 17:24] LABS: SOURCE, BODY FLUID ALBUMIN ASCITES
[2022-01-10 17:55] LABS: HEMATOCRIT 31.9 % (36.0-47.0); MEAN CORPUSCULAR HEMOGLOBIN 25.9 pg (27.0-33.0); MEAN CORPUSCULAR HGB CONC 31.3 g/dl (32.0-36.5); MEAN CORPUSCULAR VOLUME 82.6 fl (80.0-96.0); RED BLOOD COUNT 3.86 10^6/uL (4.00-5.40); WHITE BLOOD COUNT 6.9 10^3/uL (4.0-10.0)
[2022-01-10 18:01] LABS: PLATELET COUNT, AUTOMATED 162 10^3/uL (150-450)
[2022-01-10] MEDS ORDERED: ATORVASTATIN 20 MG TAB PO SCH (21:00)
[2022-01-10] MEDS ORDERED: LEVEMIR (INSULIN DETEMIR) 1 UNITS/0.01ML SC SCH (21:00)
[2022-01-11] VITALS (7 sets, daily range): BP systolic 138–165; BP diastolic 66–71
[2022-01-11] MEDS: HEPARIN SOD (PORCINE) 5000UNITS/ML 1ML VIAL/SYRINGE SC SCH (05:26)
[2022-01-11] MEDS: LEVOTHYROXINE 100MCG TABLET (0.1MG) PO SCH (05:36)
[2022-01-11 06:06] LABS: BASO % 0.6 % (0.0-1.0); EOS # 0.5 10^3/uL (0.0-0.5); EOS % 9.9 % (0.0-3.0); HEMATOCRIT 31.5 % (36.0-47.0); LYMPH # 1.2 10^3/uL (1.5-5.0); LYMPH % 26.1 % (24.0-44.0); MEAN CORPUSCULAR HEMOGLOBIN 25.5 pg (27.0-33.0); MEAN CORPUSCULAR HGB CONC 31.7 g/dl (32.0-36.5); MEAN CORPUSCULAR VOLUME 80.4 fl (80.0-96.0); MONO # 0.6 10^3/uL (0.0-0.8); MONO % 13.8 % (2.0-8.0); NEUTROPHILS # 2.3 10^3/uL (1.5-8.5); NEUTROPHILS % 49.4 % (36.0-66.0); PLATELET COUNT, AUTOMATED 170 10^3/uL (150-450); RED BLOOD COUNT 3.92 10^6/uL (4.00-5.40); WHITE BLOOD COUNT 4.6 10^3/uL (4.0-10.0)
[2022-01-11 07:32] LABS: BLOOD UREA NITROGEN 43 MG/DL (9-23); CALCIUM LEVEL 9.2 MG/DL (8.3-10.6); CARBON DIOXIDE LEVEL 30 MMOL/L (20-31); CHLORIDE LEVEL 94 MMOL/L (98-107); CREATININE FOR GFR 0.81 MG/DL (0.55-1.30); GLOMERULAR FILTRATION RATE > 60.0 (>45); GLUCOSE, FASTING 264 MG/DL (74-106); MAGNESIUM LEVEL 1.9 MG/DL (1.8-2.4); POTASSIUM SERUM 3.7 MMOL/L (3.5-5.1); SODIUM LEVEL 134 MMOL/L (136-145)
[2022-01-11] MEDS: INSULIN LISPRO (NovoLOG) PER UNIT SC SCH ×4 (09:09→12:35)
[2022-01-11] MEDS: LEVEMIR (INSULIN DETEMIR) 1 UNITS/0.01ML SC SCH (09:12)
[2022-01-11] MEDS: SUCRALFATE 1 GM TAB PO SCH (09:13)
[2022-01-11] MEDS: SPIRONOLACTONE 50 MG TAB PO SCH (09:13)
[2022-01-11] MEDS: DULoxetine 30MG CAPSULE (CYMBALTA) PO SCH (09:14)
[2022-01-11] MEDS: DOCUSATE SODIUM 100MG CAPSULE PO SCH (09:14)
[2022-01-11] MEDS: ASPIRIN 81MG ENTERIC TABLET PO SCH (09:14)
[2022-01-11] MEDS: amLODIPine 5 MG TAB PO SCH (09:17)
[2022-01-11] MEDS: TORSEMIDE 20 MG TAB PO SCH (09:18)
[2022-01-11] MEDS: cefTRIAXone SOD 1 GM in D5W MINI-BAG PLUS 50 ML IV SCH (09:18)
[2022-01-11] MEDS ORDERED: VICT18IN SC (10:01)
[2022-01-11] MEDS ORDERED: FARX1TAB3 PO (10:02)
[2022-01-11] MEDS ORDERED: METF750T36 PO (10:23)
[2022-01-11] MEDS ORDERED: TRES1INJ SC (10:23)
[2022-01-11] MEDS ORDERED: CEFD300C41 PO (12:41)
== END 2022-01-11 14:00 | disposition home or self-care (01) | DRG 638 ==
LOC: EDBD 08:39 → M ED 08:39 → M ED INP 17:43 → ENRESERV 22:30 → M PCU 23:42
PROVIDERS: ADMIT Internal Medicine; ATTEND Internal Medicine
PROC: 30233J1 Transfusion of Nonautologous Serum Albumin into Peripheral Vein, Percutaneous Approach (ICD-10-PCS; 2022-01-09)
PROC: 0W9G3ZZ Drainage of Peritoneal Cavity, Percutaneous Approach (ICD-10-PCS; principal; 2022-01-10 15:00)
DX: E11.65 Type 2 diabetes mellitus with hyperglycemia (principal); N17.9 Acute kidney failure, unspecified; E87.20 Acidosis, unspecified; R18.8 Other ascites; I13.0 Hypertensive heart and chronic kidney disease with heart failure and stage 1 through stage 4 chronic kidney disease, or unspecified chronic kidney disease; I50.32 Chronic diastolic (congestive) heart failure; E87.1 Hypo-osmolality and hyponatremia; E11.22 Type 2 diabetes mellitus with diabetic chronic kidney disease; N18.30 Chronic kidney disease, stage 3 unspecified; E11.40 Type 2 diabetes mellitus with diabetic neuropathy, unspecified; K75.81 Nonalcoholic steatohepatitis (NASH); K74.69 Other cirrhosis of liver; E03.9 Hypothyroidism, unspecified; M79.7 Fibromyalgia; E78.5 Hyperlipidemia, unspecified; I25.10 Atherosclerotic heart disease of native coronary artery without angina pectoris; E87.6 Hypokalemia; K21.9 Gastro-esophageal reflux disease without esophagitis; Z95.5 Presence of coronary angioplasty implant and graft; Z98.41 Cataract extraction status, right eye; Z98.42 Cataract extraction status, left eye; Z90.49 Acquired absence of other specified parts of digestive tract; Z87.891 Personal history of nicotine dependence; Z79.4 Long term (current) use of insulin; E86.0 Dehydration; Z79.82 Long term (current) use of aspirin; Z79.890 Hormone replacement therapy; Z79.899 Other long term (current) drug therapy; Z88.1 Allergy status to other antibiotic agents

== ENCOUNTER → 2022-02-01 | Outpatient (CLI) | payer MEDICARE ==
[~2022-02-01] MED LIST changes: +CEFD300C41 PO; +METF750T36 PO; +TRES1INJ SC; +VICT18IN SC
[2022-02-01 14:30] LABS: CREATININE, URINE 67.3 MG/DL
[2022-02-01 14:51] LABS: MAU/CREAT RATIO 564.6 MCG/MG (0.0-30.0)
[2022-02-01 15:50] LABS: HEMATOCRIT 28.6 % (36.0-47.0); HEMOGLOBIN 8.4 g/dl (12.0-15.5); MEAN CORPUSCULAR HEMOGLOBIN 24.3 pg (27.0-33.0); MEAN CORPUSCULAR HGB CONC 29.4 g/dl (32.0-36.5); MEAN CORPUSCULAR VOLUME 82.7 fl (80.0-96.0); PLATELET COUNT, AUTOMATED 218 10^3/uL (150-450); RED BLOOD COUNT 3.46 10^6/uL (4.00-5.40)
[2022-02-01 16:07] LABS: TOTAL IRON BINDING CAPACITY 378 UG/DL (250-425)
[2022-02-01 16:08] LABS: ALBUMIN 2.6 G/DL (3.2-5.2); ALKALINE PHOSPHATASE 221 U/L (46-116); ALT/SGPT 25 U/L (7.0-40); AST/SGOT 35 U/L (<34); BILIRUBIN,TOTAL 0.5 MG/DL (0.3-1.2); BLOOD UREA NITROGEN 29 MG/DL (9-23); CALCIUM LEVEL 8.4 MG/DL (8.3-10.6); CARBON DIOXIDE LEVEL 26 MMOL/L (20-31); CHLORIDE LEVEL 105 MMOL/L (98-107); CHOLESTEROL LEVEL 151 MG/DL (<200); CHOLESTEROL RISK RATIO 2.15 (<5); CREATININE FOR GFR 0.64 MG/DL (0.55-1.30); GLOMERULAR FILTRATION RATE > 60.0 (>39); GLUCOSE, FASTING 270 MG/DL (74-106); IRON (FE) 20 UG/DL (50-170); NON-HDL-C 81 MG/DL; PERCENT SATURATION 5.3 % (13.2-45.0); POTASSIUM SERUM 4.6 MMOL/L (3.5-5.1); SODIUM LEVEL 137 MMOL/L (136-145); TOTAL PROTEIN 6.5 G/DL (5.7-8.2); TRIGLYCERIDES LEVEL 85 MG/DL (<150)
[2022-02-01 16:09] LABS: FERRITIN 10.3 NG/ML (7.3-270.7); FREE T4 0.96 NG/DL (0.89-1.76); THYROID STIMULATING HORMONE 4.099 uIU/ML (0.55-4.78)
[2022-02-01 16:10] LABS: VITAMIN B12 LEVEL 641 PG/ML (211-911)
[2022-02-01 17:36] LABS: HEMOGLOBIN A1c 13.6 % (4.0-6.0)
== END ==
LOC: M PLALAB 09:42
PROVIDERS: ATTEND Internal Medicine Hematology
DX: E78.2 Mixed hyperlipidemia (principal); D50.9 Iron deficiency anemia, unspecified

== ENCOUNTER → 2022-02-08 | Outpatient (CLI) | payer MEDICARE ==
[2022-02-08 13:35] LABS: BASO # 0.1 10^3/uL (0.0-0.2); BASO % 1.5 % (0.0-1.0); EOS # 0.5 10^3/uL (0.0-0.5); EOS % 7.6 % (0.0-3.0); HEMATOCRIT 28.3 % (36.0-47.0); HEMOGLOBIN 8.4 g/dl (12.0-15.5); LYMPH # 1.4 10^3/uL (1.5-5.0); MEAN CORPUSCULAR HEMOGLOBIN 24.1 pg (27.0-33.0); MEAN CORPUSCULAR HGB CONC 29.7 g/dl (32.0-36.5); MEAN CORPUSCULAR VOLUME 81.1 fl (80.0-96.0); MONO # 0.8 10^3/uL (0.0-0.8); MONO % 12.2 % (2.0-8.0); NEUTROPHILS # 3.9 10^3/uL (1.5-8.5); NEUTROPHILS % 57.4 % (36.0-66.0); PLATELET COUNT, AUTOMATED 263 10^3/uL (150-450); RED BLOOD COUNT 3.49 10^6/uL (4.00-5.40); WHITE BLOOD COUNT 6.7 10^3/uL (4.0-10.0)
== END ==
LOC: M PLALAB 10:50
PROVIDERS: ATTEND Internal Medicine Hematology
DX: D64.9 Anemia, unspecified (principal)

== ENCOUNTER → 2022-02-08 | Outpatient (CLI) | payer MEDICAID, MEDICARE | LOC: M IRPRO 13:03 | PROVIDERS: ATTEND Internal Medicine Hematology | DX: K76.0 Fatty (change of) liver, not elsewhere classified (principal) ==

== ENCOUNTER → 2022-02-13 | Outpatient (CLI) | payer MEDICARE ==
[2022-02-13 16:18] LABS: BASO # 0.1 10^3/uL (0.0-0.2); BASO % 1.4 % (0.0-1.0); EOS # 0.5 10^3/uL (0.0-0.5); EOS % 9.4 % (0.0-3.0); HEMATOCRIT 27.9 % (36.0-47.0); HEMOGLOBIN 8.2 g/dl (12.0-15.5); LYMPH # 1.1 10^3/uL (1.5-5.0); LYMPH % 19.3 % (24.0-44.0); MEAN CORPUSCULAR HEMOGLOBIN 23.4 pg (27.0-33.0); MEAN CORPUSCULAR HGB CONC 29.4 g/dl (32.0-36.5); MEAN CORPUSCULAR VOLUME 79.5 fl (80.0-96.0); MONO # 0.7 10^3/uL (0.0-0.8); NEUTROPHILS # 3.3 10^3/uL (1.5-8.5); NEUTROPHILS % 57.4 % (36.0-66.0); PLATELET COUNT, AUTOMATED 234 10^3/uL (150-450); RED BLOOD COUNT 3.51 10^6/uL (4.00-5.40); WHITE BLOOD COUNT 5.7 10^3/uL (4.0-10.0)
== END ==
LOC: M PLALAB 12:49
PROVIDERS: ATTEND Internal Medicine Hematology
DX: D50.0 Iron deficiency anemia secondary to blood loss (chronic) (principal)

== ENCOUNTER → 2022-02-16 | Outpatient (CLI) | payer MEDICARE ==
[~2022-02-16] VITALS: Ht 167.6 cm; Wt 74.1 kg
[~2022-02-16] MED LIST changes: +ALBUTEROL SULFATE 2.5MG/0.5ML INH NEB SOLN INH PRN; +EPINEPHrine INJ 1 MG/ML 1ML AMP IM PRN; +FERRIC CARBOXYMALTOSE INJ 750 MG in NS 250 ML (>50kg) IV ONE; +NS 1,000 ML IV SCH; +diphenhydrAMINE 50MG/ML VIAL IV PRN; +methylPREDNISolone 125MG 2ML VIAL IV PRN
[2022-02-16 11:05] VITALS: BP 169/79
[2022-02-16 13:25] VITALS: BP 164/74
== END ==
LOC: M INFU 10:59
PROVIDERS: ATTEND Internal Medicine Hematology
DX: D50.9 Iron deficiency anemia, unspecified (principal); Z88.8 Allergy status to other drugs, medicaments and biological substances
CPT/HCPCS: 96365; J1439

== ENCOUNTER 2022-02-23 11:00 | Outpatient (CLI) | payer MEDICARE ==
[~2022-02-23] VITALS: Ht 161.3 cm; Wt 73.9 kg
[2022-02-23 10:45] VITALS: BP 160/69
[2022-02-23 12:45] VITALS: BP_SYST 70
== END 2022-02-23 13:00 | disposition home or self-care (01) ==
LOC: M INFU 11:00
PROVIDERS: ATTEND Internal Medicine Hematology
DX: D50.9 Iron deficiency anemia, unspecified (principal); Z88.8 Allergy status to other drugs, medicaments and biological substances
CPT/HCPCS: 96365; J1439

== ENCOUNTER → 2022-02-28 | Outpatient (REF) | payer MEDICARE ==
[~2022-02-28] MED LIST changes: -ALBUTEROL SULFATE 2.5MG/0.5ML INH NEB SOLN INH PRN; -EPINEPHrine INJ 1 MG/ML 1ML AMP IM PRN; -FERRIC CARBOXYMALTOSE INJ 750 MG in NS 250 ML (>50kg) IV ONE; -NS 1,000 ML IV SCH; -diphenhydrAMINE 50MG/ML VIAL IV PRN; -methylPREDNISolone 125MG 2ML VIAL IV PRN
[2022-02-28 18:41] LABS: MAGNESIUM LEVEL 1.6 MG/DL (1.8-2.4)
[2022-02-28 18:42] LABS: IRON (FE) 56 UG/DL (50-170)
[2022-02-28 18:43] LABS: ALBUMIN 2.7 G/DL (3.2-5.2); ALKALINE PHOSPHATASE 185 U/L (46-116); ALT/SGPT 26 U/L (7.0-40); AST/SGOT 52 U/L (<34); BILIRUBIN,TOTAL 0.7 MG/DL (0.3-1.2); BLOOD UREA NITROGEN 17 MG/DL (9-23); CALCIUM LEVEL 8.5 MG/DL (8.3-10.6); CARBON DIOXIDE LEVEL 27 MMOL/L (20-31); CHLORIDE LEVEL 107 MMOL/L (98-107); CREATININE FOR GFR 0.59 MG/DL (0.55-1.30); GLOMERULAR FILTRATION RATE > 60.0 (>39); GLUCOSE, FASTING 57 MG/DL (74-106); POTASSIUM SERUM 4.1 MMOL/L (3.5-5.1); SODIUM LEVEL 143 MMOL/L (136-145); THYROID STIMULATING HORMONE 5.619 uIU/ML (0.55-4.78); TOTAL PROTEIN 6.5 G/DL (5.7-8.2)
[2022-02-28 18:44] LABS: TOTAL 25(OH) VITAMIN D 20.6 NG/ML (20.0-100.0)
== END ==
LOC: M SFHCPLAZ 16:55
PROVIDERS: ATTEND Physician Assistant
DX: E11.65 Type 2 diabetes mellitus with hyperglycemia (principal); R60.0 Localized edema; R53.83 Other fatigue

== ENCOUNTER → 2022-04-05 | Outpatient (CLI) | payer MEDICARE ==
[2022-04-05 15:30] LABS: PERCENT SATURATION 20.5 % (13.2-45.0)
[2022-04-05 15:31] LABS: FERRITIN 150.1 NG/ML (7.3-270.7)
[2022-04-05 15:32] LABS: HEMOGLOBIN 12.3 g/dl (12.0-15.5); MEAN CORPUSCULAR HEMOGLOBIN 27.9 pg (27.0-33.0); MEAN CORPUSCULAR HGB CONC 33.2 g/dl (32.0-36.5); MEAN CORPUSCULAR VOLUME 83.9 fl (80.0-96.0); PLATELET COUNT, AUTOMATED 237 10^3/uL (150-450); RED BLOOD COUNT 4.41 10^6/uL (4.00-5.40); WHITE BLOOD COUNT 7.6 10^3/uL (4.0-10.0)
[2022-04-05 15:53] LABS: ALBUMIN 3.7 G/DL (3.2-5.2); BILIRUBIN,TOTAL 0.8 MG/DL (0.3-1.2); CALCIUM LEVEL 10.1 MG/DL (8.3-10.6); CREATININE FOR GFR 1.25 MG/DL (0.55-1.30); GLOMERULAR FILTRATION RATE 45.1 (>39); POTASSIUM SERUM 6.3 MMOL/L (3.5-5.1); TOTAL PROTEIN 7.3 G/DL (5.7-8.2)
[2022-04-05 16:06] LABS: HEMOGLOBIN A1c 8.8 % (4.0-6.0)
== END ==
LOC: M PLALAB 12:19
PROVIDERS: ATTEND Internal Medicine Hematology
DX: E11.8 Type 2 diabetes mellitus with unspecified complications (principal); D63.8 Anemia in other chronic diseases classified elsewhere

== ENCOUNTER → 2022-04-11 | Outpatient (CLI) | payer MEDICARE ==
[2022-04-11 14:19] LABS: BLOOD UREA NITROGEN 33 MG/DL (9-23); CALCIUM LEVEL 9.5 MG/DL (8.3-10.6); CARBON DIOXIDE LEVEL 26 MMOL/L (20-31); CHLORIDE LEVEL 104 MMOL/L (98-107); GLOMERULAR FILTRATION RATE > 60.0 (>39); GLUCOSE, FASTING 225 MG/DL (74-106); POTASSIUM SERUM 4.9 MMOL/L (3.5-5.1); SODIUM LEVEL 136 MMOL/L (136-145)
== END ==
LOC: M PLALAB 11:20
PROVIDERS: ATTEND Internal Medicine Hematology
DX: E87.5 Hyperkalemia (principal)

== ENCOUNTER → 2022-05-02 | Outpatient (REF) | payer MEDICARE ==
[~2022-05-02] MED LIST changes: +INSU100I6 SC; -LEVE1INJ5 SC
[2022-05-02 18:25] LABS: POTASSIUM SERUM 4.1 MMOL/L (3.5-5.1)
== END ==
LOC: M LAB REF 17:26
PROVIDERS: ATTEND Internal Medicine Nephrology
DX: N17.9 Acute kidney failure, unspecified (principal)

== ENCOUNTER 2022-07-19 11:15 | Observation (INO) | payer MEDICARE ==
[~2022-07-19] VITALS: Ht 160 cm; Wt 74.6 kg
[~2022-07-19 11:15] MED LIST changes: -LOSA100T45 PO; +LOSA100T46 PO
[2022-07-19 11:59] LABS: BASO # 0.1 10^3/uL (0.0-0.2); BASO % 1.4 % (0.0-1.0); EOS # 0.2 10^3/uL (0.0-0.5); EOS % 3.3 % (0.0-3.0); HEMATOCRIT 22.3 % (36.0-47.0); HEMOGLOBIN 7.2 g/dl (12.0-15.5); LYMPH # 1.3 10^3/uL (1.5-5.0); LYMPH % 24.8 % (24.0-44.0); MEAN CORPUSCULAR HEMOGLOBIN 25.4 pg (27.0-33.0); MEAN CORPUSCULAR HGB CONC 32.3 g/dl (32.0-36.5); MEAN CORPUSCULAR VOLUME 78.8 fl (80.0-96.0); MONO # 0.6 10^3/uL (0.0-0.8); NEUTROPHILS % 58.1 % (36.0-66.0); PLATELET COUNT, AUTOMATED 245 10^3/uL (150-450); RED BLOOD COUNT 2.83 10^6/uL (4.00-5.40); WHITE BLOOD COUNT 5.2 10^3/uL (4.0-10.0)
[2022-07-19] MEDS ORDERED: NS 1,000 ML IV ONE (12:05)
[2022-07-19 12:14] LABS: INR 1.06
[2022-07-19 12:46] LABS: ALBUMIN 2.8 G/DL (3.2-5.2); BILIRUBIN,DIRECT 0.2 MG/DL (<0.4); BILIRUBIN,TOTAL 0.4 MG/DL (0.3-1.2); CALCIUM LEVEL 8.4 MG/DL (8.3-10.6); CREATININE FOR GFR 1.13 MG/DL (0.55-1.30); GLOMERULAR FILTRATION RATE 50.7 (>39); POTASSIUM SERUM 6.4 MMOL/L (3.5-5.1); TOTAL PROTEIN 5.5 G/DL (5.7-8.2)
[2022-07-19] MEDS ORDERED: LACTULOSE 20GM/30ML SYRUP UDC PO ONE (13:00)
[2022-07-19] MEDS ORDERED: DEXTROSE 50% 50ML SYRINGE IV PRN (14:30)
[2022-07-19] MEDS ORDERED: GLUCOSE 4GM CHEW TABLET PO PRN (14:30)
[2022-07-19] MEDS ORDERED: GLUCAGON INJ 1MG VIAL SC PRN (14:30)
[2022-07-19] MEDS ORDERED: LR 1,000 ML IV SCH (14:30)
[2022-07-19] MEDS ORDERED: ISOVUE-370 76% 100ML VIAL As Ordered ONE (14:43)
[2022-07-19 14:57] LABS: ABG BASE EXCESS -6.2 (-2.0-2.0); ABG HCO3 16.8 MMOL/L (22.0-26.0); ABG O2 SATURATION 98.8 % (95.0-99.0); ABG PARTIAL PRESSURE CO2 24.9 mmHg (35.0-45.0); ABG PARTIAL PRESSURE O2 123.8 mmHg (75.0-100.0); ABG STANDARD HCO3 19.3 MMOL/L. (22.0-26.0); ABG TOTAL CO2 17.6 MMOL/L (23.0-31.0); ABG pH (ARTERIAL) 7.447 UNITS (7.350-7.450)
[2022-07-19 14:59] LABS: FOLATE 13.7 NG/ML (>5.4)
[2022-07-19 15:00] LABS: FERRITIN 5.5 NG/ML (7.3-270.7)
[2022-07-19 15:41] VITALS: BP 148/67
[2022-07-19] MEDS ORDERED: DEXTROSE 50% 50ML SYRINGE IV STA (16:15)
[2022-07-19] MEDS ORDERED: CALCIUM GLUCONATE 1,000 MG in D5W MINI-BAG PLUS 100 ML IV ONE (16:15)
[2022-07-19] MEDS ORDERED: HumuLIN R (REGULAR) INSULIN (NovoLIN R) **100U/ML** PER UNIT IV STA (16:15)
[2022-07-19] MEDS ORDERED: PATIROMER SORBITEX CALCIUM 8.4 GM POWDER PACKET (VELTASSA) PO ONE (17:00)
[2022-07-19] MEDS: INSULIN LISPRO (NovoLOG) PER UNIT SC SCH ×2 (17:30→20:27)
[2022-07-19] MEDS ORDERED: IRON SUCROSE 200 MG in NS 100 ML IV ONE (18:00)
[2022-07-19] MEDS: LACTULOSE 20GM/30ML SYRUP UDC PO SCH ×2 (18:30→23:45)
[2022-07-19 18:47] LABS: CALCIUM LEVEL 9.1 MG/DL (8.3-10.6); CREATININE FOR GFR 1.06 MG/DL (0.55-1.30); GLOMERULAR FILTRATION RATE 54.6 (>39); POTASSIUM SERUM 4.7 MMOL/L (3.5-5.1)
[2022-07-19] MEDS ORDERED: FARX1TAB3 PO (18:55)
[2022-07-19] MEDS ORDERED: HYDR-3716 PO (18:55)
[2022-07-19] MEDS ORDERED: SPIR50TA4 PO (18:55)
[2022-07-19] MEDS ORDERED: ISOS30TAB PO (18:55)
[2022-07-19] MEDS ORDERED: LEVO112T2 PO (18:55)
[2022-07-19] MEDS ORDERED: TRES1INJ SC (18:55)
[2022-07-19] MEDS ORDERED: TORS20TA2 PO (18:55)
[2022-07-19] MEDS ORDERED: METF750T36 PO (18:55)
[2022-07-19] MEDS ORDERED: LISI2.5T8 PO (18:59)
[2022-07-19] MEDS ORDERED: HYDR-3911 PO (18:59)
[2022-07-19] MEDS ORDERED: HOME MED LIST COMPLETE! XX SCH (19:00)
[2022-07-19] MEDS ORDERED: ANEXSIA, NORCO 7.5MG/325MG TABLET(HYDROCODONE/APAP) PO PRN (19:40)
[2022-07-19 20:00] VITALS: BP 146/65
[2022-07-19] MEDS: SUCRALFATE 1 GM TAB PO SCH (21:08)
[2022-07-19] MEDS: ATORVASTATIN 20 MG TAB PO SCH (21:08)
[2022-07-19] MEDS: LEVEMIR (INSULIN DETEMIR) 1 UNITS/0.01ML SC SCH (21:08)
[2022-07-19 23:52] VITALS: BP 114/66
[2022-07-20 03:07] VITALS: BP 146/69
[2022-07-20 05:30] LABS: HEMATOCRIT 27.1 % (36.0-47.0); HEMOGLOBIN 8.3 g/dl (12.0-15.5); MEAN CORPUSCULAR HEMOGLOBIN 24.3 pg (27.0-33.0); MEAN CORPUSCULAR HGB CONC 30.6 g/dl (32.0-36.5); MEAN CORPUSCULAR VOLUME 79.5 fl (80.0-96.0); PLATELET COUNT, AUTOMATED 277 10^3/uL (150-450); RED BLOOD COUNT 3.41 10^6/uL (4.00-5.40); WHITE BLOOD COUNT 7.4 10^3/uL (4.0-10.0)
[2022-07-20 05:59] LABS: ALBUMIN 3.3 G/DL (3.2-5.2); ALKALINE PHOSPHATASE 102 U/L (46-116); ALT/SGPT 39 U/L (7.0-40); AST/SGOT 76 U/L (<34); BILIRUBIN,TOTAL 0.5 MG/DL (0.3-1.2); BLOOD UREA NITROGEN 36 MG/DL (9-23); CALCIUM LEVEL 9.5 MG/DL (8.3-10.6); CARBON DIOXIDE LEVEL 18 MMOL/L (20-31); CHLORIDE LEVEL 108 MMOL/L (98-107); CREATININE FOR GFR 0.88 MG/DL (0.55-1.30); GLOMERULAR FILTRATION RATE > 60.0 (>39); GLUCOSE, FASTING 57 MG/DL (74-106); MAGNESIUM LEVEL 1.7 MG/DL (1.8-2.4); PHOSPHORUS LEVEL 4.5 MG/DL (2.4-5.1); POTASSIUM SERUM 4.7 MMOL/L (3.5-5.1); SODIUM LEVEL 137 MMOL/L (136-145); TOTAL PROTEIN 6.5 G/DL (5.7-8.2)
[2022-07-20] MEDS: LACTULOSE 20GM/30ML SYRUP UDC PO SCH ×4 (06:12→23:07)
[2022-07-20] MEDS: LEVOTHYROXINE 112MCG TABLET (0.112MG) PO SCH (06:13)
[2022-07-20] MEDS ORDERED: MAGNESIUM OXIDE 400MG TAB (MAG-OX) PO ONE (06:45)
[2022-07-20 07:33] VITALS: BP 166/72
[2022-07-20] MEDS: ENOXAPARIN 40MG/0.4ML SYRINGE (J1650 PER 10MG) SC SCH ×2 (08:25→08:29)
[2022-07-20] MEDS: SUCRALFATE 1 GM TAB PO SCH ×3 (08:25→20:33)
[2022-07-20] MEDS: INSULIN LISPRO (NovoLOG) PER UNIT SC SCH ×4 (08:25→20:32)
[2022-07-20] MEDS: ASPIRIN 81MG ENTERIC TABLET PO SCH (08:25)
[2022-07-20] MEDS: DULoxetine 30MG CAPSULE (CYMBALTA) PO SCH (08:25)
[2022-07-20] MEDS: LEVEMIR (INSULIN DETEMIR) 1 UNITS/0.01ML SC SCH ×2 (08:26→20:32)
[2022-07-20] MEDS ORDERED: IRON SUCROSE 200 MG in NS 100 ML IV ONE (09:00)
[2022-07-20] MEDS: LISINOPRIL *2.5 MG* TAB PO SCH (11:48)
[2022-07-20] MEDS: ISOSORBIDE DIN. (ISORDIL) 30 MG TAB PO SCH (11:48)
[2022-07-20] MEDS: amLODIPine 5 MG TAB PO SCH (11:49)
[2022-07-20 12:00] VITALS: BP 164/69
[2022-07-20] MEDS: SPIRONOLACTONE 50 MG TAB PO SCH (16:19)
[2022-07-20] MEDS: **hydrALAZINE HCL** 25 MG TAB PO SCH (17:11)
[2022-07-20] MEDS ORDERED: **hydrALAZINE** 50 MG TAB PO SCH (18:00)
[2022-07-20 20:30] VITALS: BP 148/69
[2022-07-20] MEDS: ATORVASTATIN 20 MG TAB PO SCH (20:33)
[2022-07-20 22:47] VITALS: BP 148/63
[2022-07-21] MEDS: LEVOTHYROXINE 112MCG TABLET (0.112MG) PO SCH (05:29)
[2022-07-21] MEDS: LACTULOSE 20GM/30ML SYRUP UDC PO SCH ×2 (05:29→12:25)
[2022-07-21 05:36] LABS: HEMATOCRIT 27.6 % (36.0-47.0); HEMOGLOBIN 8.5 g/dl (12.0-15.5); MEAN CORPUSCULAR HEMOGLOBIN 24.2 pg (27.0-33.0); MEAN CORPUSCULAR HGB CONC 30.8 g/dl (32.0-36.5); MEAN CORPUSCULAR VOLUME 78.6 fl (80.0-96.0); PLATELET COUNT, AUTOMATED 311 10^3/uL (150-450); RED BLOOD COUNT 3.51 10^6/uL (4.00-5.40); WHITE BLOOD COUNT 8.1 10^3/uL (4.0-10.0)
[2022-07-21 06:00] VITALS: BP_SYST 127; BP_SYST 148; BP_DIAS 56; BP_DIAS 69
[2022-07-21 06:05] LABS: ALBUMIN 3.3 G/DL (3.2-5.2); ALKALINE PHOSPHATASE 106 U/L (46-116); ALT/SGPT 44 U/L (7.0-40); AST/SGOT 65 U/L (<34); BILIRUBIN,TOTAL 0.5 MG/DL (0.3-1.2); BLOOD UREA NITROGEN 25 MG/DL (9-23); CALCIUM LEVEL 8.7 MG/DL (8.3-10.6); CARBON DIOXIDE LEVEL 18 MMOL/L (20-31); CHLORIDE LEVEL 109 MMOL/L (98-107); CREATININE FOR GFR 0.76 MG/DL (0.55-1.30); GLOMERULAR FILTRATION RATE > 60.0 (>39); GLUCOSE, FASTING 44 MG/DL (74-106); POTASSIUM SERUM 4.3 MMOL/L (3.5-5.1); SODIUM LEVEL 139 MMOL/L (136-145); TOTAL PROTEIN 6.4 G/DL (5.7-8.2)
[2022-07-21 08:11] VITALS: BP 141/53
[2022-07-21 08:13] LABS: HEMOGLOBIN A1c 9.1 % (4.0-6.0)
[2022-07-21] MEDS: DULoxetine 30MG CAPSULE (CYMBALTA) PO SCH (08:14)
[2022-07-21] MEDS: SPIRONOLACTONE 50 MG TAB PO SCH (08:15)
[2022-07-21] MEDS: **hydrALAZINE HCL** 25 MG TAB PO SCH (08:15)
[2022-07-21] MEDS: SUCRALFATE 1 GM TAB PO SCH (08:16)
[2022-07-21] MEDS: ASPIRIN 81MG ENTERIC TABLET PO SCH (08:16)
[2022-07-21] MEDS: ENOXAPARIN 40MG/0.4ML SYRINGE (J1650 PER 10MG) SC SCH (08:17)
[2022-07-21] MEDS: INSULIN LISPRO (NovoLOG) PER UNIT SC SCH ×2 (08:18→12:26)
[2022-07-21] MEDS: LISINOPRIL *2.5 MG* TAB PO SCH (08:19)
[2022-07-21 08:27] VITALS: BP 148/56
[2022-07-21] MEDS: amLODIPine 5 MG TAB PO SCH (08:27)
[2022-07-21] MEDS: ISOSORBIDE DIN. (ISORDIL) 30 MG TAB PO SCH (08:27)
[2022-07-21] MEDS ORDERED: TORSEMIDE 20 MG TAB PO SCH (09:00)
[2022-07-21] MEDS ORDERED: ALDA50TA2 PO (09:58)
[2022-07-21] MEDS ORDERED: TORS20TA2 PO (09:58)
[2022-07-21] MEDS ORDERED: HYDR25TA PO (09:58)
[2022-07-21] MEDS ORDERED: LACT20EL PO (09:58)
[2022-07-21] MEDS ORDERED: FERR325T3 PO (11:50)
[2022-07-21] MEDS ORDERED: LEVEMIR (INSULIN DETEMIR) 1 UNITS/0.01ML SC SCH (21:00)
== END 2022-07-21 13:32 | disposition home or self-care (01) ==
LOC: M ED 11:15 → EDBD 11:15 → M ED INP 13:55 → ENRESERV 14:39 → M PCU 15:41 → M MSPAV 07-20 22:42
PROVIDERS: ADMIT Internal Medicine; ATTEND Internal Medicine
DX: R53.1 Weakness (principal); B95.7 Other staphylococcus as the cause of diseases classified elsewhere; K74.60 Unspecified cirrhosis of liver; K75.81 Nonalcoholic steatohepatitis (NASH); E87.20 Acidosis, unspecified; E87.8 Other disorders of electrolyte and fluid balance, not elsewhere classified; I95.9 Hypotension, unspecified; I12.9 Hypertensive chronic kidney disease with stage 1 through stage 4 chronic kidney disease, or unspecified chronic kidney disease; D50.9 Iron deficiency anemia, unspecified; N18.30 Chronic kidney disease, stage 3 unspecified; R00.1 Bradycardia, unspecified; E03.9 Hypothyroidism, unspecified; E11.40 Type 2 diabetes mellitus with diabetic neuropathy, unspecified; M79.7 Fibromyalgia; R10.817 Generalized abdominal tenderness; R42 Dizziness and giddiness; Z79.899 Other long term (current) drug therapy; Z79.82 Long term (current) use of aspirin; Z79.84 Long term (current) use of oral hypoglycemic drugs; Z79.4 Long term (current) use of insulin; Z79.890 Hormone replacement therapy; Z88.1 Allergy status to other antibiotic agents; Z87.891 Personal history of nicotine dependence
CPT/HCPCS: 36415; 70450; 71045; 74177; 80048; 80053; 80076; 82140; 82607; 82728; 82746; 82803; 83036; 83550; 83605; 83735; 84100; 84132; 85025; 85027; 85610; 87040; 87077; 87086; 87186; 87635; 93005; 93041; 94760; 96365; 96366; 96375; 96376; 97161; 97165; 97530; 99285; G0378; J0612; J1756; J1815; Q9967

== ENCOUNTER → 2022-08-13 | Outpatient (CLI) | payer MEDICARE ==
[~2022-08-13] MED LIST changes: +HYDR-3716 PO; +HYDR-3911 PO; +HYDR25TA PO; +ISOS30TAB PO; +LEVO112T2 PO; +LISI2.5T8 PO; +SPIR50TA4 PO
[2022-08-13 14:34] LABS: HEMATOCRIT 33.1 % (36.0-47.0); MEAN CORPUSCULAR HGB CONC 30.2 g/dl (32.0-36.5); MEAN CORPUSCULAR VOLUME 76.1 fl (80.0-96.0); PLATELET COUNT, AUTOMATED 339 10^3/uL (150-450); RED BLOOD COUNT 4.35 10^6/uL (4.00-5.40)
[2022-08-13 14:57] LABS: HEMOGLOBIN A1c 9.6 % (4.0-6.0)
[2022-08-13 15:02] LABS: TOTAL IRON BINDING CAPACITY 444 UG/DL (250-425)
[2022-08-13 15:03] LABS: ALBUMIN 3.8 G/DL (3.2-5.2); ALKALINE PHOSPHATASE 127 U/L (46-116); ALT/SGPT 34 U/L (7.0-40); AST/SGOT 30 U/L (<34); BILIRUBIN,TOTAL 0.7 MG/DL (0.3-1.2); BLOOD UREA NITROGEN 28 MG/DL (9-23); CALCIUM LEVEL 10.1 MG/DL (8.3-10.6); CARBON DIOXIDE LEVEL 21 MMOL/L (20-31); CHLORIDE LEVEL 105 MMOL/L (98-107); CHOLESTEROL LEVEL 145 MG/DL (<200); CHOLESTEROL RISK RATIO 2.11 (<5); CREATININE FOR GFR 1.04 MG/DL (0.55-1.30); CREATININE, URINE 44.5 MG/DL; GLOMERULAR FILTRATION RATE 55.8 (>39); GLUCOSE, FASTING 146 MG/DL (74-106); HDL CHOLESTEROL 68.6 MG/DL (>40); IRON (FE) 23 UG/DL (50-170); LDL CHOLESTEROL 60.4 MG/DL (<100); MAU/CREAT RATIO 71.9 MCG/MG (0.0-30.0); NON-HDL-C 76.4 MG/DL; PERCENT SATURATION 5.2 % (13.2-45.0); POTASSIUM SERUM 4.8 MMOL/L (3.5-5.1); SODIUM LEVEL 138 MMOL/L (136-145); TOTAL PROTEIN 7.2 G/DL (5.7-8.2); TRIGLYCERIDES LEVEL 80 MG/DL (<150)
[2022-08-13 15:04] LABS: C REACTIVE PROTEIN QUANTITATIV < 0.40 MG/DL (<1.0)
[2022-08-13 15:07] LABS: FREE T4 1.39 NG/DL (0.89-1.76)
[2022-08-13 15:08] LABS: FERRITIN 14.8 NG/ML (7.3-270.7); THYROID STIMULATING HORMONE 1.641 uIU/ML (0.55-4.78); TOTAL 25(OH) VITAMIN D 21.8 NG/ML (20.0-100.0); VITAMIN B12 LEVEL 715 PG/ML (211-911)
[2022-08-14 08:10] LABS: INSULIN LEVEL 5.8 uIU/mL (2.6-24.9)
== END ==
LOC: M PLALAB 12:19
PROVIDERS: ATTEND Internal Medicine Hematology
DX: D50.0 Iron deficiency anemia secondary to blood loss (chronic) (principal); E11.8 Type 2 diabetes mellitus with unspecified complications; Z79.899 Other long term (current) drug therapy

== ENCOUNTER 2022-08-21 14:24 | Outpatient (CLI) | payer MEDICARE ==
[~2022-08-21] VITALS: Ht 161.3 cm; Wt 74.9 kg
[~2022-08-21 14:24] MED LIST changes: +ALBUTEROL SULFATE 2.5MG/0.5ML INH NEB SOLN INH PRN; +EPINEPHrine INJ 1 MG/ML 1ML AMP IM PRN; +diphenhydrAMINE 50MG/ML VIAL IV PRN; +methylPREDNISolone 125MG 2ML VIAL IV PRN
[2022-08-21 15:30] VITALS: BP 144/68; O2SAT 99
[2022-08-21] MEDS ORDERED: NS 1,000 ML IV SCH (15:30)
[2022-08-21] MEDS ORDERED: FERRIC CARBOXYMALTOSE INJ 750 MG in NS 250 ML (>50kg) IV ONE ×3 (15:30)
[2022-08-21 16:22] VITALS: BP 149/69; O2SAT 99
== END 2022-08-21 16:15 | disposition home or self-care (01) ==
LOC: M INFU 14:24
PROVIDERS: ATTEND Internal Medicine Hematology
DX: D50.9 Iron deficiency anemia, unspecified (principal); Z88.8 Allergy status to other drugs, medicaments and biological substances
CPT/HCPCS: 96365; J1439

== ENCOUNTER 2022-08-26 18:37 | Emergency (ER) | payer MEDICARE ==
[~2022-08-26] VITALS: Ht 162.6 cm; Wt 75.0 kg
[~2022-08-26 18:37] MED LIST changes: -ALBUTEROL SULFATE 2.5MG/0.5ML INH NEB SOLN INH PRN; -EPINEPHrine INJ 1 MG/ML 1ML AMP IM PRN; -diphenhydrAMINE 50MG/ML VIAL IV PRN; -methylPREDNISolone 125MG 2ML VIAL IV PRN
[2022-08-26 21:27] VITALS: BP 160/70; TEMP 97.3; O2SAT 98
== END 2022-08-26 21:28 | disposition home or self-care (01) ==
LOC: M ED 18:37
DX: S80.11XA Contusion of right lower leg, initial encounter (principal); W01.0XXA Fall on same level from slipping, tripping and stumbling without subsequent striking against object, initial encounter; Y92.002 Bathroom of unspecified non-institutional (private) residence as the place of occurrence of the external cause; Y93.01 Activity, walking, marching and hiking; Y99.8 Other external cause status; M25.572 Pain in left ankle and joints of left foot; M25.522 Pain in left elbow; I50.20 Unspecified systolic (congestive) heart failure; E11.40 Type 2 diabetes mellitus with diabetic neuropathy, unspecified; I10 Essential (primary) hypertension; E78.5 Hyperlipidemia, unspecified; M79.7 Fibromyalgia; K21.9 Gastro-esophageal reflux disease without esophagitis; F10.10 Alcohol abuse, uncomplicated; F41.9 Anxiety disorder, unspecified; F32.A Depression, unspecified; K58.9 Irritable bowel syndrome, unspecified; Z88.8 Allergy status to other drugs, medicaments and biological substances; Z79.899 Other long term (current) drug therapy; Z79.82 Long term (current) use of aspirin; Z79.4 Long term (current) use of insulin; Z79.84 Long term (current) use of oral hypoglycemic drugs

== ENCOUNTER 2022-08-30 14:05 | Outpatient (CLI) | payer MEDICARE ==
[~2022-08-30 14:05] MED LIST changes: +ALBUTEROL SULFATE 2.5MG/0.5ML INH NEB SOLN INH PRN; +EPINEPHrine INJ 1 MG/ML 1ML AMP IM PRN; +diphenhydrAMINE 50MG/ML VIAL IV PRN; +methylPREDNISolone 125MG 2ML VIAL IV PRN
[2022-08-30] MEDS ORDERED: NS 1,000 ML IV SCH (14:30)
[2022-08-30] MEDS ORDERED: FERRIC CARBOXYMALTOSE INJ 750 MG in NS 250 ML (>50kg) IV ONE ×3 (14:30)
[2022-08-30 14:33] VITALS: BP 137/63; O2SAT 100
[2022-08-30 15:10] VITALS: BP 160/70; O2SAT 98
== END 2022-08-30 15:10 ==
LOC: M INFU 14:05
PROVIDERS: ATTEND Internal Medicine Hematology
DX: D50.9 Iron deficiency anemia, unspecified (principal); Z88.8 Allergy status to other drugs, medicaments and biological substances
CPT/HCPCS: 96365; 96366; J1439

== ENCOUNTER 2022-09-29 17:31 | Observation (INO) | payer MEDICARE ==
[~2022-09-29] VITALS: Ht 167.6 cm; Wt 75.8 kg
[~2022-09-29 17:31] MED LIST changes: -ALBUTEROL SULFATE 2.5MG/0.5ML INH NEB SOLN INH PRN; -AMIT25TA17 PO; +AMIT25TA19 PO; -EPINEPHrine INJ 1 MG/ML 1ML AMP IM PRN; -diphenhydrAMINE 50MG/ML VIAL IV PRN; -methylPREDNISolone 125MG 2ML VIAL IV PRN
[2022-09-29 18:13] LABS: BASO # 0.1 10^3/uL (0.0-0.2); BASO % 0.3 % (0.0-1.0); EOS % 0.1 % (0.0-3.0); HEMOGLOBIN 12.5 g/dl (12.0-15.5); LYMPH # 0.7 10^3/uL (1.5-5.0); LYMPH % 3.3 % (24.0-44.0); MEAN CORPUSCULAR HGB CONC 32.1 g/dl (32.0-36.5); MEAN CORPUSCULAR VOLUME 81.1 fl (80.0-96.0); NEUTROPHILS # 17.3 10^3/uL (1.5-8.5); NEUTROPHILS % 86.6 % (36.0-66.0); PLATELET COUNT, AUTOMATED 211 10^3/uL (150-450); RED BLOOD COUNT 4.81 10^6/uL (4.00-5.40)
[2022-09-29 18:23] LABS: MONO # 1.8 10^3/uL (0.0-0.8)
[2022-09-29 18:49] LABS: PLATELET ESTIMATE NORMAL (NORMAL)
[2022-09-29] MEDS ORDERED: MORPHINE 4 MG/ML 1ML VIAL IV ONE (19:00)
[2022-09-29 19:30] LABS: CREATININE FOR GFR 1.09 MG/DL (0.55-1.30); GLOMERULAR FILTRATION RATE 52.8 (>39); POTASSIUM SERUM 4.2 MMOL/L (3.5-5.1)
[2022-09-29 22:06] LABS: RSV AMPLIFICATION NEGATIVE (NEGATIVE)
[2022-09-29] MEDS ORDERED: DEXTROSE 50% 50ML SYRINGE IV PRN (22:25)
[2022-09-29] MEDS ORDERED: GLUCAGON INJ 1MG VIAL SC PRN (22:25)
[2022-09-29] MEDS ORDERED: GLUCOSE 4GM CHEW TABLET PO PRN (22:25)
[2022-09-29] MEDS ORDERED: HEPARIN SOD (PORCINE) 5000UNITS/ML 1ML VIAL/SYRINGE SC SCH (22:25)
[2022-09-29] MEDS ORDERED: ACETAMINOPHEN TAB 650MG DOSE (2X325MG) PO PRN (22:25)
[2022-09-29] MEDS ORDERED: HYDR-3911 PO (23:04)
[2022-09-29] MEDS ORDERED: SPIR50TA4 PO (23:04)
[2022-09-29] MEDS ORDERED: AMLO1TAB25 PO (23:04)
[2022-09-29] MEDS ORDERED: TORS20TA2 PO (23:04)
[2022-09-29 23:05] LABS: APPEARANCE, URINE CLEAR (CLEAR); BACTERIA, URINE AUTO NEGATIVE (NEGATIVE); BILIRUBIN, URINE AUTO NEGATIVE (NEGATIVE); BLOOD, URINE BLOOD NEGATIVE (NEGATIVE); COLOR, URINE YELLOW (YELLOW); GLUCOSE, URINE (UA) AUTO 3+ mg/dL (NEGATIVE); KETONE, URINE AUTO NEGATIVE (NEGATIVE); LEUKOCYTE ESTERASE, URINE AUTO NEGATIVE (NEGATIVE); NITRITE, URINE AUTO NEGATIVE (NEGATIVE); PROTEIN, URINE AUTO NEGATIVE (NEGATIVE); RBC, URINE AUTO 2 /HPF (0-3); SQUAMOUS EPITHELIAL CELL UR AU 0 /HPF (0-6); UROBILINOGEN, URINE AUTO 0.2 mg/dL (0.0-2.0); WBC, URINE AUTO 1 /HPF (0-3)
[2022-09-29 23:17] VITALS: BP 141/69; TEMP 99; O2SAT 100
[2022-09-30] MEDS: NORCO, ANEXSIA 5/325MG TABLET (HYDROcodone/ACETAMINOPHEN) PO PRN ×2 (00:11→10:57)
[2022-09-30] MEDS: LEVOTHYROXINE 112MCG TABLET (0.112MG) PO SCH (05:15)
[2022-09-30] MEDS: LACTULOSE 20GM/30ML SYRUP UDC PO SCH ×5 (05:16→23:50)
[2022-09-30] MEDS: HEPARIN SOD (PORCINE) 5000UNITS/ML 1ML VIAL/SYRINGE SC SCH ×3 (05:16→22:00)
[2022-09-30] MEDS ORDERED: LR 1,000 ML IV ONE (05:55)
[2022-09-30 06:00] VITALS: BP 88/46; TEMP 98.2; O2SAT 99
[2022-09-30 06:38] LABS: ALBUMIN 3.2 G/DL (3.2-5.2); BILIRUBIN,TOTAL 0.8 MG/DL (0.3-1.2); CALCIUM LEVEL 9.1 MG/DL (8.3-10.6); CREATININE FOR GFR 1.01 MG/DL (0.55-1.30); GLOMERULAR FILTRATION RATE 57.7 (>39); TOTAL PROTEIN 6.6 G/DL (5.7-8.2)
[2022-09-30] MEDS: INSULIN LISPRO (NovoLOG) PER UNIT SC SCH ×3 (07:30→17:31)
[2022-09-30 08:00] VITALS: BP 155/70
[2022-09-30] MEDS: ANALGESIC BALM CRM 3OZ TOP SCH ×2 (09:00→21:00)
[2022-09-30] MEDS: DAPAGLIFLOZIN PROPANEDIOL 10MG TABLET (FARXIGA) PO SCH (10:53)
[2022-09-30] MEDS: LISINOPRIL *2.5 MG* TAB PO SCH (10:53)
[2022-09-30] MEDS: SPIRONOLACTONE 50 MG TAB PO SCH ×2 (10:54→17:26)
[2022-09-30] MEDS: ASPIRIN 81MG ENTERIC TABLET PO SCH (10:54)
[2022-09-30] MEDS: ISOSORBIDE DIN. (ISORDIL) 30 MG TAB PO SCH ×3 (10:54→20:53)
[2022-09-30] MEDS: **hydrALAZINE** 50 MG TAB PO SCH ×2 (10:55→20:53)
[2022-09-30] MEDS: DULoxetine 30MG CAPSULE (CYMBALTA) PO SCH (10:56)
[2022-09-30 14:00] VITALS: BP 121/45; TEMP 98.4; O2SAT 98
[2022-09-30] MEDS ORDERED: INSULIN LISPRO (NovoLOG) PER UNIT SC SCH (21:00)
[2022-09-30] MEDS ORDERED: ATORVASTATIN 20 MG TAB PO SCH (21:00)
[2022-09-30 22:33] VITALS: BP 145/60; TEMP 98.2; O2SAT 97
[2022-10-01] MEDS: HEPARIN SOD (PORCINE) 5000UNITS/ML 1ML VIAL/SYRINGE SC SCH ×2 (05:23→14:00)
[2022-10-01] MEDS: LACTULOSE 20GM/30ML SYRUP UDC PO SCH ×3 (05:23→18:00)
[2022-10-01] MEDS: LEVOTHYROXINE 112MCG TABLET (0.112MG) PO SCH (05:23)
[2022-10-01 06:00] VITALS: BP 143/56; TEMP 98; O2SAT 97
[2022-10-01 06:27] LABS: BLOOD UREA NITROGEN 28 MG/DL (9-23); CALCIUM LEVEL 8.5 MG/DL (8.3-10.6); CARBON DIOXIDE LEVEL 19 MMOL/L (20-31); CHLORIDE LEVEL 110 MMOL/L (98-107); CREATININE FOR GFR 0.93 MG/DL (0.55-1.30); GLOMERULAR FILTRATION RATE > 60.0 (>39); GLUCOSE, FASTING 139 MG/DL (74-106); POTASSIUM SERUM 4.3 MMOL/L (3.5-5.1); SODIUM LEVEL 140 MMOL/L (136-145)
[2022-10-01 06:30] LABS: BASO # 0.1 10^3/uL (0.0-0.2); BASO % 1.1 % (0.0-1.0); EOS # 0.5 10^3/uL (0.0-0.5); EOS % 5.5 % (0.0-3.0); HEMATOCRIT 32.6 % (36.0-47.0); HEMOGLOBIN 10.3 g/dl (12.0-15.5); LYMPH # 1.9 10^3/uL (1.5-5.0); LYMPH % 22.5 % (24.0-44.0); MEAN CORPUSCULAR HEMOGLOBIN 25.8 pg (27.0-33.0); MEAN CORPUSCULAR HGB CONC 31.6 g/dl (32.0-36.5); MEAN CORPUSCULAR VOLUME 81.7 fl (80.0-96.0); MONO # 1.1 10^3/uL (0.0-0.8); NEUTROPHILS # 4.9 10^3/uL (1.5-8.5); NEUTROPHILS % 57.5 % (36.0-66.0); PLATELET COUNT, AUTOMATED 165 10^3/uL (150-450); RED BLOOD COUNT 3.99 10^6/uL (4.00-5.40); WHITE BLOOD COUNT 8.5 10^3/uL (4.0-10.0)
[2022-10-01 07:24] LABS: PLATELET ESTIMATE NORMAL (NORMAL)
[2022-10-01 07:25] LABS: ANISOCYTOSIS 2+; OVALOCYTES 1+; POIKILOCYTOSIS 2+; POLYCHROMASIA 1+; SCHISTOCYTES 1+
[2022-10-01 07:26] LABS: HYPOCHROMASIA 1+
[2022-10-01] MEDS: INSULIN LISPRO (NovoLOG) PER UNIT SC SCH ×3 (07:30→17:40)
[2022-10-01] MEDS: DULoxetine 30MG CAPSULE (CYMBALTA) PO SCH (08:20)
[2022-10-01] MEDS: SPIRONOLACTONE 50 MG TAB PO SCH ×2 (08:20→17:00)
[2022-10-01 08:24] VITALS: BP 153/72
[2022-10-01] MEDS: **hydrALAZINE** 50 MG TAB PO SCH (08:24)
[2022-10-01] MEDS: ISOSORBIDE DIN. (ISORDIL) 30 MG TAB PO SCH ×2 (08:25→16:00)
[2022-10-01] MEDS: ASPIRIN 81MG ENTERIC TABLET PO SCH (08:25)
[2022-10-01] MEDS: LISINOPRIL *2.5 MG* TAB PO SCH (08:25)
[2022-10-01] MEDS: DAPAGLIFLOZIN PROPANEDIOL 10MG TABLET (FARXIGA) PO SCH (08:25)
[2022-10-01] MEDS ORDERED: BACITRACIN OINTMENT 30GM TUBE TOP PRN (11:20)
[2022-10-01] MEDS: ANALGESIC BALM CRM 3OZ TOP SCH (12:13)
== END 2022-10-01 18:20 | disposition home or self-care (01) ==
LOC: M ED 17:31 → EDBD 17:31 → M ED 23:15 → M ED INP 09-30 → UNDOADMIN 09-30 → M ED INP 09-30 00:02 → M MS5PR 09-30 00:02 → M ED INP 09-30 17:29 → INTOOBSV 09-30 17:29
PROVIDERS: ADMIT Internal Medicine; ATTEND Internal Medicine
DX: S92.514A Nondisplaced fracture of proximal phalanx of right lesser toe(s), initial encounter for closed fracture (principal); S70.01XA Contusion of right hip, initial encounter; W18.30XA Fall on same level, unspecified, initial encounter; Y92.032 Bedroom in apartment as the place of occurrence of the external cause; Y93.01 Activity, walking, marching and hiking; D72.829 Elevated white blood cell count, unspecified; E11.649 Type 2 diabetes mellitus with hypoglycemia without coma; E11.65 Type 2 diabetes mellitus with hyperglycemia; K74.60 Unspecified cirrhosis of liver; E11.42 Type 2 diabetes mellitus with diabetic polyneuropathy; M79.7 Fibromyalgia; E03.9 Hypothyroidism, unspecified; N18.30 Chronic kidney disease, stage 3 unspecified; I13.0 Hypertensive heart and chronic kidney disease with heart failure and stage 1 through stage 4 chronic kidney disease, or unspecified chronic kidney disease; I25.10 Atherosclerotic heart disease of native coronary artery without angina pectoris; R53.83 Other fatigue; R52 Pain, unspecified; I50.20 Unspecified systolic (congestive) heart failure; B88.8 Other specified infestations; T14.8XXA Other injury of unspecified body region, initial encounter; S50.87 Other superficial bite of forearm; S60.579A Other superficial bite of hand of unspecified hand, initial encounter; W55.01XA Bitten by cat, initial encounter; Y92.098 Other place in other non-institutional residence as the place of occurrence of the external cause; Y93.K9 Activity, other involving animal care; Z88.1 Allergy status to other antibiotic agents; Z79.899 Other long term (current) drug therapy; Z79.82 Long term (current) use of aspirin; Z79.4 Long term (current) use of insulin; Z79.890 Hormone replacement therapy; Z79.84 Long term (current) use of oral hypoglycemic drugs; Z87.891 Personal history of nicotine dependence
CPT/HCPCS: 36415; 73502; 73552; 73590; 73630; 80048; 80053; 81001; 82550; 83735; 85025; 87631; 96374; 97116; 97161; 97165; 97530; 99285; G0378; J1815

== ENCOUNTER → 2022-10-04 | Outpatient (CLI) | payer MEDICARE ==
[2022-10-04 11:54] LABS: BASO # 0.1 10^3/uL (0.0-0.2); BASO % 1.2 % (0.0-1.0); EOS # 0.5 10^3/uL (0.0-0.5); EOS % 7.7 % (0.0-3.0); HEMATOCRIT 36.5 % (36.0-47.0); HEMOGLOBIN 11.6 g/dl (12.0-15.5); LYMPH # 1.5 10^3/uL (1.5-5.0); LYMPH % 21.2 % (24.0-44.0); MEAN CORPUSCULAR HEMOGLOBIN 25.8 pg (27.0-33.0); MEAN CORPUSCULAR HGB CONC 31.8 g/dl (32.0-36.5); MEAN CORPUSCULAR VOLUME 81.3 fl (80.0-96.0); MONO # 0.8 10^3/uL (0.0-0.8); MONO % 12.2 % (2.0-8.0); NEUTROPHILS % 57.4 % (36.0-66.0); PLATELET COUNT, AUTOMATED 261 10^3/uL (150-450); RED BLOOD COUNT 4.49 10^6/uL (4.00-5.40); WHITE BLOOD COUNT 6.9 10^3/uL (4.0-10.0)
[2022-10-04 12:09] LABS: PERCENT SATURATION 14.4 % (13.2-45.0)
[2022-10-04 12:10] LABS: FERRITIN 162.7 NG/ML (7.3-270.7)
[2022-10-04 12:15] LABS: PLATELET ESTIMATE NORMAL (NORMAL)
[2022-10-04 12:17] LABS: ANISOCYTOSIS 3+; MICROCYTOSIS 1+
[2022-10-04 12:18] LABS: OVALOCYTES 1+
== END ==
LOC: M WUC 09:45
PROVIDERS: ATTEND Internal Medicine Hematology
DX: D50.9 Iron deficiency anemia, unspecified (principal)

== ENCOUNTER → 2022-10-12 | Outpatient (CLI) | payer MEDICARE | LOC: M SOG 08:00 | PROVIDERS: ATTEND Orthopaedic Surgery | DX: M79.641 Pain in right hand (principal) ==

== ENCOUNTER 2022-10-19 15:05 | Outpatient (CLI) | payer MEDICARE ==
[~2022-10-19] VITALS: Ht 162.6 cm; Wt 75.2 kg
[2022-10-19 15:05] VITALS: BP 162/73; O2SAT 100
[~2022-10-19 15:05] MED LIST changes: +ALBUTEROL SULFATE 2.5MG/0.5ML INH NEB SOLN INH PRN; +EPINEPHrine INJ 1 MG/ML 1ML AMP IM PRN; +IRON SUCROSE 200 MG in NS 100 ML OVER 1 HR IV ONE; +NS 1,000 ML IV SCH; +diphenhydrAMINE 50MG/ML VIAL IV PRN; +methylPREDNISolone 125MG 2ML VIAL IV PRN
[2022-10-19 16:50] VITALS: BP 152/78; O2SAT 99
[2022-10-20] MEDS ORDERED: TRIA1CR80 TOP (12:21)
[2022-10-20] MEDS ORDERED: BENA25CA4 PO (12:21)
== END 2022-10-19 16:50 | disposition home or self-care (01) ==
LOC: M INFU 15:05
PROVIDERS: ATTEND Internal Medicine Hematology
DX: D50.9 Iron deficiency anemia, unspecified (principal); Z88.1 Allergy status to other antibiotic agents
CPT/HCPCS: 96365; J1756

== ENCOUNTER 2022-10-20 10:13 | Emergency (ER) | payer MEDICARE ==
[~2022-10-20] VITALS: Ht 162.6 cm; Wt 79.6 kg
[~2022-10-20 10:13] MED LIST changes: -ALBUTEROL SULFATE 2.5MG/0.5ML INH NEB SOLN INH PRN; -EPINEPHrine INJ 1 MG/ML 1ML AMP IM PRN; -IRON SUCROSE 200 MG in NS 100 ML OVER 1 HR IV ONE; -NS 1,000 ML IV SCH; -diphenhydrAMINE 50MG/ML VIAL IV PRN; -methylPREDNISolone 125MG 2ML VIAL IV PRN
[2022-10-20] MEDS ORDERED: BENA25CA4 PO (12:21)
[2022-10-20] MEDS ORDERED: TRIA1CR80 TOP (12:21)
[2022-10-20 12:37] VITALS: BP 137/64; TEMP 97.8; O2SAT 100
== END 2022-10-20 12:38 | disposition home or self-care (01) ==
LOC: M ED 10:13
DX: R22.31 Localized swelling, mass and lump, right upper limb (principal); T45.4X5A Adverse effect of iron and its compounds, initial encounter; I11.9 Hypertensive heart disease without heart failure; I50.20 Unspecified systolic (congestive) heart failure; E11.40 Type 2 diabetes mellitus with diabetic neuropathy, unspecified; M79.7 Fibromyalgia; K74.60 Unspecified cirrhosis of liver; K76.0 Fatty (change of) liver, not elsewhere classified; G47.33 Obstructive sleep apnea (adult) (pediatric); M54.9 Dorsalgia, unspecified; K58.9 Irritable bowel syndrome, unspecified; N18.30 Chronic kidney disease, stage 3 unspecified; F41.9 Anxiety disorder, unspecified; F32.A Depression, unspecified; Z88.8 Allergy status to other drugs, medicaments and biological substances; Z79.82 Long term (current) use of aspirin; Z79.899 Other long term (current) drug therapy; Z79.84 Long term (current) use of oral hypoglycemic drugs; Z95.5 Presence of coronary angioplasty implant and graft

== ENCOUNTER 2022-10-28 10:33 | Inpatient (IN) | payer MEDICARE ==
[~2022-10-28] VITALS: Ht 167.6 cm; Wt 77.0 kg
[~2022-10-28 10:33] MED LIST changes: +BENA25CA4 PO; +CURRENT HEIGHT AND WEIGHT NEEDED ON PATIENT XX SCH; +MECL-209 PO; -MECL1TAB31 PO; -PREG50CA2; +PREG50CA3; +TRIA1CR80 TOP
[2022-10-28 11:36] LABS: BASO # 0.1 10^3/uL (0.0-0.2); BASO % 0.6 % (0.0-1.0); EOS % 0.2 % (0.0-3.0); HEMATOCRIT 35.3 % (36.0-47.0); HEMOGLOBIN 11.5 g/dl (12.0-15.5); LYMPH # 0.7 10^3/uL (1.5-5.0); LYMPH % 8.4 % (24.0-44.0); MEAN CORPUSCULAR HEMOGLOBIN 26.8 pg (27.0-33.0); MEAN CORPUSCULAR HGB CONC 32.6 g/dl (32.0-36.5); MEAN CORPUSCULAR VOLUME 82.3 fl (80.0-96.0); MONO # 0.7 10^3/uL (0.0-0.8); MONO % 7.9 % (2.0-8.0); NEUTROPHILS # 7.1 10^3/uL (1.5-8.5); NEUTROPHILS % 82.6 % (36.0-66.0); PLATELET COUNT, AUTOMATED 210 10^3/uL (150-450); RED BLOOD COUNT 4.29 10^6/uL (4.00-5.40); WHITE BLOOD COUNT 8.6 10^3/uL (4.0-10.0)
[2022-10-28 12:09] LABS: CALCIUM LEVEL 8.9 MG/DL (8.3-10.6); CREATININE FOR GFR 1.04 MG/DL (0.55-1.30); GLOMERULAR FILTRATION RATE 55.8 (>39); POTASSIUM SERUM 3.6 MMOL/L (3.5-5.1)
[2022-10-28] MEDS ORDERED: NS 1,000 ML IV SCH (12:10)
[2022-10-28] MEDS ORDERED: ISOVUE-370 76% 100ML VIAL As Ordered ONE (12:15)
[2022-10-28 13:21] LABS: ALBUMIN 3.1 G/DL (3.2-5.2); BILIRUBIN,DIRECT 0.3 MG/DL (<0.4); BILIRUBIN,TOTAL 0.5 MG/DL (0.3-1.2); TOTAL PROTEIN 6.1 G/DL (5.7-8.2)
[2022-10-28] MEDS ORDERED: LACTULOSE 20GM/30ML SYRUP UDC PO ONE (13:25)
[2022-10-28 13:31] LABS: RSV AMPLIFICATION NEGATIVE (NEGATIVE)
[2022-10-28] MEDS ORDERED: MAALOX 30 ML SUSP *UDC PO PRN (16:15)
[2022-10-28] MEDS ORDERED: MOM 30ML SUSPENSION UDC PO PRN (16:15)
[2022-10-28] MEDS ORDERED: GLUCOSE 4GM CHEW TABLET PO PRN (17:05)
[2022-10-28] MEDS ORDERED: GLUCAGON INJ 1MG VIAL SC PRN (17:05)
[2022-10-28] MEDS ORDERED: DEXTROSE 50% 50ML SYRINGE IV PRN (17:05)
[2022-10-28] MEDS: LACTULOSE 20GM/30ML SYRUP UDC PO SCH ×2 (17:20→20:51)
[2022-10-28 17:50] VITALS: BP 178/78; TEMP 98.7; O2SAT 99
[2022-10-28 20:00] VITALS: BP 178/80; TEMP 98.9; O2SAT 98
[2022-10-28] MEDS ORDERED: SPIR50TA4 PO (20:31)
[2022-10-28] MEDS ORDERED: TRIA1CR80 TOP (20:31)
[2022-10-28] MEDS ORDERED: LISI2.5T9 PO (20:44)
[2022-10-28] MEDS: D5W/0.9% SODIUM CHLORIDE 1,000 ML IV SCH (20:51)
[2022-10-28] MEDS ORDERED: INSULIN LISPRO (NovoLOG) PER UNIT SC SCH (21:00)
[2022-10-28] MEDS ORDERED: INSUDET SC (21:03)
[2022-10-28] MEDS ORDERED: HOME MED LIST COMPLETE! XX SCH ×2 (21:10→21:55)
[2022-10-28] MEDS: INSULIN LISPRO (NovoLOG) PER UNIT SC SCH (22:00)
[2022-10-28] MEDS ORDERED: hydrALAZINE 20MG/ML 1ML VIAL IV PRN (22:05)
[2022-10-28 23:32] VITALS: BP 166/80; TEMP 98.8; O2SAT 97
[2022-10-29] MEDS: LACTULOSE 20GM/30ML SYRUP UDC PO SCH ×3 (00:54→09:00)
[2022-10-29] MEDS: INSULIN LISPRO (NovoLOG) PER UNIT SC SCH ×6 (01:58→21:43)
[2022-10-29 03:31] VITALS: BP 160/66; TEMP 99.5; O2SAT 97
[2022-10-29] MEDS: D5W/0.9% SODIUM CHLORIDE 1,000 ML IV SCH ×3 (04:14→18:02)
[2022-10-29] MEDS: LEVOTHYROXINE 112MCG TABLET (0.112MG) PO SCH (06:00)
[2022-10-29 06:38] LABS: BASO # 0.1 10^3/uL (0.0-0.2); BASO % 1.3 % (0.0-1.0); EOS # 0.3 10^3/uL (0.0-0.5); EOS % 3.3 % (0.0-3.0); HEMATOCRIT 33.5 % (36.0-47.0); HEMOGLOBIN 10.7 g/dl (12.0-15.5); LYMPH # 2.2 10^3/uL (1.5-5.0); LYMPH % 27.8 % (24.0-44.0); MEAN CORPUSCULAR HEMOGLOBIN 26.9 pg (27.0-33.0); MEAN CORPUSCULAR HGB CONC 31.9 g/dl (32.0-36.5); MEAN CORPUSCULAR VOLUME 84.2 fl (80.0-96.0); MONO # 1.2 10^3/uL (0.0-0.8); MONO % 14.5 % (2.0-8.0); NEUTROPHILS # 4.2 10^3/uL (1.5-8.5); PLATELET COUNT, AUTOMATED 177 10^3/uL (150-450); RED BLOOD COUNT 3.98 10^6/uL (4.00-5.40); WHITE BLOOD COUNT 7.9 10^3/uL (4.0-10.0)
[2022-10-29 07:09] LABS: BLOOD UREA NITROGEN 30 MG/DL (9-23); CALCIUM LEVEL 8.5 MG/DL (8.3-10.6); CARBON DIOXIDE LEVEL 21 MMOL/L (20-31); CHLORIDE LEVEL 112 MMOL/L (98-107); CREATININE FOR GFR 0.78 MG/DL (0.55-1.30); GLOMERULAR FILTRATION RATE > 60.0 (>39); GLUCOSE, FASTING 130 MG/DL (74-106); MAGNESIUM LEVEL 1.9 MG/DL (1.8-2.4); POTASSIUM SERUM 3.6 MMOL/L (3.5-5.1); SODIUM LEVEL 143 MMOL/L (136-145)
[2022-10-29 08:11] VITALS: BP 158/66; TEMP 99.2; O2SAT 97
[2022-10-29] MEDS: SPIRONOLACTONE 50 MG TAB PO SCH ×2 (09:00→17:00)
[2022-10-29] MEDS: ISOSORBIDE DIN. (ISORDIL) 30 MG TAB PO SCH ×3 (09:00→21:45)
[2022-10-29] MEDS ORDERED: LISINOPRIL *2.5 MG* TAB PO SCH (09:00)
[2022-10-29] MEDS: **hydrALAZINE** 50 MG TAB PO SCH ×2 (09:00→21:46)
[2022-10-29] MEDS: ENOXAPARIN 40MG/0.4ML SYRINGE (J1650 PER 10MG) SC SCH (10:19)
[2022-10-29 11:36] LABS: ABG BASE EXCESS -2.9 (-2.0-2.0); ABG HCO3 19.3 MMOL/L (22.0-26.0); ABG O2 SATURATION 95.5 % (95.0-99.0); ABG PARTIAL PRESSURE CO2 26.5 mmHg (35.0-45.0); ABG PARTIAL PRESSURE O2 77.6 mmHg (75.0-100.0); ABG TOTAL CO2 20.2 MMOL/L (23.0-31.0); ABG pH (ARTERIAL) 7.481 UNITS (7.350-7.450)
[2022-10-29] MEDS ORDERED: LACTULOSE 20GM/30ML SYRUP UDC PR ONE (12:00)
[2022-10-29] MEDS: LACTULOSE 20GM/30ML SYRUP UDC NG SCH ×13 (12:17→23:56)
[2022-10-29 12:41] VITALS: BP 162/74; TEMP 98.5; O2SAT 92
[2022-10-29 16:12] VITALS: BP 164/70; TEMP 96.8; O2SAT 94
[2022-10-29 19:49] VITALS: BP 168/74; TEMP 98.7; O2SAT 98
[2022-10-29] MEDS: ATORVASTATIN 20 MG TAB PO SCH (21:44)
[2022-10-29] MEDS: NYSTATIN OINTMENT 15 GM TOP SCH (23:16)
[2022-10-29 23:48] VITALS: BP 145/63; TEMP 98.6; O2SAT 99
[2022-10-30] VITALS (8 sets, daily range): BP systolic 138–155; BP diastolic 60–67; TEMP 96.9–101; O2SAT 97–100
[2022-10-30] MEDS: LACTULOSE 20GM/30ML SYRUP UDC NG SCH ×12 (01:00→23:56)
[2022-10-30] MEDS: INSULIN LISPRO (NovoLOG) PER UNIT SC SCH ×5 (01:47→20:05)
[2022-10-30] MEDS: D5W/0.9% SODIUM CHLORIDE 1,000 ML IV SCH (03:31)
[2022-10-30] MEDS: ACETAMINOPHEN TAB 650MG DOSE (2X325MG) PO PRN ×2 (04:23→18:19)
[2022-10-30 05:20] LABS: BASO # 0.1 10^3/uL (0.0-0.2); BASO % 0.8 % (0.0-1.0); EOS # 0.4 10^3/uL (0.0-0.5); EOS % 4.1 % (0.0-3.0); LYMPH # 1.2 10^3/uL (1.5-5.0); LYMPH % 11.3 % (24.0-44.0); MEAN CORPUSCULAR HEMOGLOBIN 27.1 pg (27.0-33.0); MEAN CORPUSCULAR HGB CONC 31.4 g/dl (32.0-36.5); MEAN CORPUSCULAR VOLUME 86.2 fl (80.0-96.0); MONO # 1.1 10^3/uL (0.0-0.8); NEUTROPHILS % 73.4 % (36.0-66.0); PLATELET COUNT, AUTOMATED 196 10^3/uL (150-450); RED BLOOD COUNT 4.06 10^6/uL (4.00-5.40); WHITE BLOOD COUNT 10.9 10^3/uL (4.0-10.0)
[2022-10-30 05:35] LABS: BLOOD UREA NITROGEN 25 MG/DL (9-23); CALCIUM LEVEL 8.5 MG/DL (8.3-10.6); CARBON DIOXIDE LEVEL 16 MMOL/L (20-31); CHLORIDE LEVEL 121 MMOL/L (98-107); CREATININE FOR GFR 0.77 MG/DL (0.55-1.30); GLOMERULAR FILTRATION RATE > 60.0 (>39); GLUCOSE, FASTING 154 MG/DL (74-106); MAGNESIUM LEVEL 1.8 MG/DL (1.8-2.4); POTASSIUM SERUM 3.1 MMOL/L (3.5-5.1); SODIUM LEVEL 152 MMOL/L (136-145)
[2022-10-30] MEDS: LEVOTHYROXINE 112MCG TABLET (0.112MG) PO SCH (06:18)
[2022-10-30] MEDS: D5W 1,000 ML IV SCH ×3 (06:58→21:07)
[2022-10-30] MEDS ORDERED: POTASSIUM CHLORIDE 10% LIQ 20MEQ/15ML UDC PO ONE (07:00)
[2022-10-30 08:55] LABS: C REACTIVE PROTEIN QUANTITATIV < 0.40 MG/DL (<1.0)
[2022-10-30] MEDS: ENOXAPARIN 40MG/0.4ML SYRINGE (J1650 PER 10MG) SC SCH (08:57)
[2022-10-30] MEDS: ISOSORBIDE DIN. (ISORDIL) 30 MG TAB PO SCH ×3 (08:57→22:37)
[2022-10-30] MEDS: **hydrALAZINE** 50 MG TAB PO SCH ×2 (08:57→20:05)
[2022-10-30] MEDS: cefTRIAXone SOD 1 GM in D5W MINI-BAG PLUS 50 ML IV SCH (08:57)
[2022-10-30] MEDS: NYSTATIN OINTMENT 15 GM TOP SCH ×2 (08:58→20:06)
[2022-10-30 09:02] LABS: PROCALCITONIN 0.37 ng/ml
[2022-10-30] MEDS: ASPIRIN 81MG ENTERIC TABLET PO SCH (12:08)
[2022-10-30] MEDS: PANTOPRAZOLE 40MG VIAL IV SCH ×2 (12:08→20:05)
[2022-10-30] MEDS: SPIRONOLACTONE 50 MG TAB PO SCH ×2 (12:09→18:16)
[2022-10-30 12:52] LABS: BLOOD UREA NITROGEN 23 MG/DL (9-23); CALCIUM LEVEL 8.6 MG/DL (8.3-10.6); CARBON DIOXIDE LEVEL 17 MMOL/L (20-31); CHLORIDE LEVEL 118 MMOL/L (98-107); CREATININE FOR GFR 0.82 MG/DL (0.55-1.30); GLOMERULAR FILTRATION RATE > 60.0 (>39); GLUCOSE, FASTING 188 MG/DL (74-106); POTASSIUM SERUM 3.8 MMOL/L (3.5-5.1); SODIUM LEVEL 147 MMOL/L (136-145)
[2022-10-30 15:58] LABS: BLOOD UREA NITROGEN 26 MG/DL (9-23); CALCIUM LEVEL 8.5 MG/DL (8.3-10.6); CARBON DIOXIDE LEVEL 16 MMOL/L (20-31); CHLORIDE LEVEL 120 MMOL/L (98-107); CREATININE FOR GFR 0.83 MG/DL (0.55-1.30); GLOMERULAR FILTRATION RATE > 60.0 (>39); GLUCOSE, FASTING 222 MG/DL (74-106); POTASSIUM SERUM 3.8 MMOL/L (3.5-5.1); SODIUM LEVEL 148 MMOL/L (136-145)
[2022-10-30] MEDS: ATORVASTATIN 20 MG TAB PO SCH (20:06)
[2022-10-31 00:40] LABS: BLOOD UREA NITROGEN 27 MG/DL (9-23); CARBON DIOXIDE LEVEL 18 MMOL/L (20-31); CHLORIDE LEVEL 119 MMOL/L (98-107); CREATININE FOR GFR 0.97 MG/DL (0.55-1.30); GLOMERULAR FILTRATION RATE > 60.0 (>39); GLUCOSE, FASTING 230 MG/DL (74-106); POTASSIUM SERUM 3.8 MMOL/L (3.5-5.1); SODIUM LEVEL 145 MMOL/L (136-145)
[2022-10-31] MEDS: LACTULOSE 20GM/30ML SYRUP UDC NG SCH ×11 (03:48→23:44)
[2022-10-31 03:49] VITALS: BP 153/70; TEMP 97.7; O2SAT 99
[2022-10-31] MEDS: LEVOTHYROXINE 112MCG TABLET (0.112MG) PO SCH (05:38)
[2022-10-31 06:05] LABS: BASO # 0.1 10^3/uL (0.0-0.2); BASO % 0.8 % (0.0-1.0); EOS # 0.4 10^3/uL (0.0-0.5); EOS % 5.7 % (0.0-3.0); HEMATOCRIT 35.3 % (36.0-47.0); LYMPH # 1.2 10^3/uL (1.5-5.0); LYMPH % 15.4 % (24.0-44.0); MEAN CORPUSCULAR HEMOGLOBIN 27.4 pg (27.0-33.0); MEAN CORPUSCULAR HGB CONC 31.2 g/dl (32.0-36.5); MONO # 0.9 10^3/uL (0.0-0.8); MONO % 11.5 % (2.0-8.0); NEUTROPHILS % 66.3 % (36.0-66.0); PLATELET COUNT, AUTOMATED 149 10^3/uL (150-450); RED BLOOD COUNT 4.01 10^6/uL (4.00-5.40); WHITE BLOOD COUNT 7.6 10^3/uL (4.0-10.0)
[2022-10-31 06:29] LABS: BLOOD UREA NITROGEN 26 MG/DL (9-23); CALCIUM LEVEL 8.6 MG/DL (8.3-10.6); CARBON DIOXIDE LEVEL 18 MMOL/L (20-31); CHLORIDE LEVEL 119 MMOL/L (98-107); CREATININE FOR GFR 0.82 MG/DL (0.55-1.30); GLOMERULAR FILTRATION RATE > 60.0 (>39); GLUCOSE, FASTING 208 MG/DL (74-106); MAGNESIUM LEVEL 1.7 MG/DL (1.8-2.4); POTASSIUM SERUM 3.8 MMOL/L (3.5-5.1); SODIUM LEVEL 147 MMOL/L (136-145)
[2022-10-31 07:33] VITALS: BP 149/67; TEMP 98.5; O2SAT 98
[2022-10-31] MEDS: cefTRIAXone SOD 1 GM in D5W MINI-BAG PLUS 50 ML IV SCH (08:21)
[2022-10-31] MEDS: PANTOPRAZOLE 40MG VIAL IV SCH ×2 (08:22→20:56)
[2022-10-31] MEDS: SPIRONOLACTONE 50 MG TAB PO SCH ×2 (08:22→17:43)
[2022-10-31] MEDS: ISOSORBIDE DIN. (ISORDIL) 30 MG TAB PO SCH ×3 (08:22→21:07)
[2022-10-31] MEDS: INSULIN LISPRO (NovoLOG) PER UNIT SC SCH ×4 (08:22→20:47)
[2022-10-31] MEDS: ASPIRIN 81MG ENTERIC TABLET PO SCH (08:22)
[2022-10-31] MEDS: rifAXIMin 550 MG TAB (XIFAXAN) PO SCH ×2 (08:22→20:56)
[2022-10-31] MEDS: **hydrALAZINE** 50 MG TAB PO SCH ×2 (08:23→20:56)
[2022-10-31] MEDS: NYSTATIN OINTMENT 15 GM TOP SCH ×2 (08:23→21:09)
[2022-10-31] MEDS: ENOXAPARIN 40MG/0.4ML SYRINGE (J1650 PER 10MG) SC SCH (08:23)
[2022-10-31] MEDS ORDERED: MAG SULF 1GM/100ML (MAG RUN) 1 GM in IV 1 EA IV ONE (11:00)
[2022-10-31 12:08] VITALS: BP 172/70; TEMP 97.7; O2SAT 99
[2022-10-31] MEDS: LEVEMIR (INSULIN DETEMIR) 1 UNITS/0.01ML SC SCH ×2 (15:34→20:57)
[2022-10-31 16:13] VITALS: BP 174/72; TEMP 98.1; O2SAT 98
[2022-10-31] MEDS ORDERED: hydrALAZINE 20MG/ML 1ML VIAL IV PRN (16:20)
[2022-10-31 20:50] VITALS: BP 147/82; TEMP 98.6; O2SAT 99
[2022-10-31] MEDS: ATORVASTATIN 20 MG TAB PO SCH (20:56)
[2022-11-01] VITALS (7 sets, daily range): BP systolic 131–195; BP diastolic 56–100; TEMP 96.9–98.6; O2SAT 96–99
[2022-11-01] MEDS: LACTULOSE 20GM/30ML SYRUP UDC NG SCH ×3 (02:07→06:40)
[2022-11-01 06:05] LABS: BASO # 0.1 10^3/uL (0.0-0.2); BASO % 0.9 % (0.0-1.0); EOS # 0.5 10^3/uL (0.0-0.5); EOS % 7.5 % (0.0-3.0); HEMATOCRIT 35.8 % (36.0-47.0); HEMOGLOBIN 11.1 g/dl (12.0-15.5); LYMPH # 1.4 10^3/uL (1.5-5.0); LYMPH % 21.6 % (24.0-44.0); MEAN CORPUSCULAR HEMOGLOBIN 27.2 pg (27.0-33.0); MEAN CORPUSCULAR VOLUME 87.7 fl (80.0-96.0); MONO # 0.8 10^3/uL (0.0-0.8); MONO % 12.4 % (2.0-8.0); NEUTROPHILS # 3.7 10^3/uL (1.5-8.5); NEUTROPHILS % 57.3 % (36.0-66.0); PLATELET COUNT, AUTOMATED 160 10^3/uL (150-450); RED BLOOD COUNT 4.08 10^6/uL (4.00-5.40); WHITE BLOOD COUNT 6.4 10^3/uL (4.0-10.0)
[2022-11-01 06:40] LABS: BLOOD UREA NITROGEN 27 MG/DL (9-23); CALCIUM LEVEL 8.9 MG/DL (8.3-10.6); CARBON DIOXIDE LEVEL 19 MMOL/L (20-31); CHLORIDE LEVEL 121 MMOL/L (98-107); CREATININE FOR GFR 0.75 MG/DL (0.55-1.30); GLOMERULAR FILTRATION RATE > 60.0 (>39); GLUCOSE, FASTING 115 MG/DL (74-106); MAGNESIUM LEVEL 1.8 MG/DL (1.8-2.4); POTASSIUM SERUM 4.1 MMOL/L (3.5-5.1); SODIUM LEVEL 150 MMOL/L (136-145)
[2022-11-01] MEDS: LEVOTHYROXINE 112MCG TABLET (0.112MG) PO SCH (06:40)
[2022-11-01] MEDS ORDERED: D5W 1,000 ML IV SCH (07:10)
[2022-11-01] MEDS: INSULIN LISPRO (NovoLOG) PER UNIT SC SCH ×4 (07:30→20:25)
[2022-11-01] MEDS: rifAXIMin 550 MG TAB (XIFAXAN) PO SCH ×2 (09:07→20:21)
[2022-11-01] MEDS: PANTOPRAZOLE 40MG VIAL IV SCH ×2 (09:07→20:19)
[2022-11-01] MEDS: LACTULOSE 20GM/30ML SYRUP UDC PO SCH ×5 (09:07→17:32)
[2022-11-01] MEDS: ASPIRIN 81MG ENTERIC TABLET PO SCH (09:07)
[2022-11-01] MEDS: **hydrALAZINE** 50 MG TAB PO SCH ×2 (09:07→20:21)
[2022-11-01] MEDS: ISOSORBIDE DIN. (ISORDIL) 30 MG TAB PO SCH ×3 (09:08→20:25)
[2022-11-01] MEDS: SPIRONOLACTONE 50 MG TAB PO SCH ×2 (09:08→17:33)
[2022-11-01] MEDS: ENOXAPARIN 40MG/0.4ML SYRINGE (J1650 PER 10MG) SC SCH (09:08)
[2022-11-01] MEDS: LEVEMIR (INSULIN DETEMIR) 1 UNITS/0.01ML SC SCH ×2 (09:09→20:20)
[2022-11-01] MEDS: NYSTATIN OINTMENT 15 GM TOP SCH ×2 (09:09→20:27)
[2022-11-01] MEDS: cefTRIAXone SOD 1 GM in D5W MINI-BAG PLUS 50 ML IV SCH (09:16)
[2022-11-01 12:58] LABS: BLOOD UREA NITROGEN 28 MG/DL (9-23); CALCIUM LEVEL 8.9 MG/DL (8.3-10.6); CARBON DIOXIDE LEVEL 18 MMOL/L (20-31); CHLORIDE LEVEL 117 MMOL/L (98-107); CREATININE FOR GFR 0.73 MG/DL (0.55-1.30); GLOMERULAR FILTRATION RATE > 60.0 (>39); GLUCOSE, FASTING 402 MG/DL (74-106); POTASSIUM SERUM 4.5 MMOL/L (3.5-5.1); SODIUM LEVEL 144 MMOL/L (136-145)
[2022-11-01] MEDS: DULoxetine 30MG CAPSULE (CYMBALTA) PO SCH (17:33)
[2022-11-01] MEDS: ATORVASTATIN 20 MG TAB PO SCH (20:21)
[2022-11-02] MEDS: LACTULOSE 20GM/30ML SYRUP UDC PO SCH ×5 (00:41→22:34)
[2022-11-02 03:46] VITALS: BP 139/62; TEMP 98; O2SAT 97
[2022-11-02] MEDS: LEVOTHYROXINE 112MCG TABLET (0.112MG) PO SCH (05:41)
[2022-11-02 07:04] LABS: BASO # 0.1 10^3/uL (0.0-0.2); BASO % 0.8 % (0.0-1.0); EOS # 0.7 10^3/uL (0.0-0.5); EOS % 8.6 % (0.0-3.0); HEMATOCRIT 36.6 % (36.0-47.0); HEMOGLOBIN 11.5 g/dl (12.0-15.5); LYMPH # 2.1 10^3/uL (1.5-5.0); LYMPH % 26.8 % (24.0-44.0); MEAN CORPUSCULAR HEMOGLOBIN 27.2 pg (27.0-33.0); MEAN CORPUSCULAR HGB CONC 31.4 g/dl (32.0-36.5); MEAN CORPUSCULAR VOLUME 86.5 fl (80.0-96.0); MONO # 0.8 10^3/uL (0.0-0.8); MONO % 9.6 % (2.0-8.0); NEUTROPHILS # 4.3 10^3/uL (1.5-8.5); NEUTROPHILS % 53.8 % (36.0-66.0); RED BLOOD COUNT 4.23 10^6/uL (4.00-5.40)
[2022-11-02 07:33] LABS: BLOOD UREA NITROGEN 27 MG/DL (9-23); CALCIUM LEVEL 8.6 MG/DL (8.3-10.6); CARBON DIOXIDE LEVEL 16 MMOL/L (20-31); CHLORIDE LEVEL 116 MMOL/L (98-107); GLOMERULAR FILTRATION RATE > 60.0 (>39); GLUCOSE, FASTING 126 MG/DL (74-106); MAGNESIUM LEVEL 1.5 MG/DL (1.8-2.4); POTASSIUM SERUM 4.4 MMOL/L (3.5-5.1); SODIUM LEVEL 142 MMOL/L (136-145)
[2022-11-02 07:52] VITALS: BP 160/70; TEMP 97.1; O2SAT 100
[2022-11-02] MEDS: INSULIN LISPRO (NovoLOG) PER UNIT SC SCH ×4 (08:15→20:17)
[2022-11-02] MEDS: LEVEMIR (INSULIN DETEMIR) 1 UNITS/0.01ML SC SCH ×2 (08:15→20:23)
[2022-11-02] MEDS: PANTOPRAZOLE 40MG VIAL IV SCH (08:15)
[2022-11-02] MEDS: ISOSORBIDE DIN. (ISORDIL) 30 MG TAB PO SCH ×3 (08:16→20:23)
[2022-11-02] MEDS: rifAXIMin 550 MG TAB (XIFAXAN) PO SCH ×2 (08:16→20:24)
[2022-11-02] MEDS: **hydrALAZINE** 50 MG TAB PO SCH (08:16)
[2022-11-02] MEDS: ASPIRIN 81MG ENTERIC TABLET PO SCH (08:16)
[2022-11-02] MEDS: SPIRONOLACTONE 50 MG TAB PO SCH ×2 (08:16→17:55)
[2022-11-02] MEDS: DULoxetine 30MG CAPSULE (CYMBALTA) PO SCH (08:16)
[2022-11-02] MEDS: ENOXAPARIN 40MG/0.4ML SYRINGE (J1650 PER 10MG) SC SCH (08:16)
[2022-11-02] MEDS: NYSTATIN OINTMENT 15 GM TOP SCH ×2 (08:17→20:25)
[2022-11-02] MEDS: MAG SULF 1GM/100ML (MAG RUN) 1 GM in IV 1 EA IV SCH ×3 (08:21→12:34)
[2022-11-02] MEDS: SODIUM BICARBONATE 325 MG TAB PO SCH ×4 (08:21→20:24)
[2022-11-02] MEDS ORDERED: TORSEMIDE 10 MG TABLET PO SCH (09:00)
[2022-11-02] MEDS ORDERED: lisinopriL 5 MG TAB PO SCH (09:00)
[2022-11-02 11:40] VITALS: BP 170/70; TEMP 97.1; O2SAT 97
[2022-11-02 16:02] VITALS: BP 152/68; TEMP 97.4; O2SAT 99
[2022-11-02 20:00] VITALS: BP 116/90; TEMP 98.1; O2SAT 97
[2022-11-02] MEDS: PANTOPRAZOLE 40MG TAB (PROTONIX) PO SCH (20:24)
[2022-11-02] MEDS: ATORVASTATIN 20 MG TAB PO SCH (20:24)
[2022-11-02] MEDS ORDERED: **hydrALAZINE HCL** 25 MG TAB PO SCH (21:00)
[2022-11-03] MEDS: LACTULOSE 20GM/30ML SYRUP UDC PO SCH ×3 (02:48→18:03)
[2022-11-03] MEDS: LEVOTHYROXINE 112MCG TABLET (0.112MG) PO SCH (05:11)
[2022-11-03 06:18] LABS: BASO # 0.1 10^3/uL (0.0-0.2); BASO % 0.7 % (0.0-1.0); EOS # 0.6 10^3/uL (0.0-0.5); EOS % 7.9 % (0.0-3.0); HEMATOCRIT 33.3 % (36.0-47.0); HEMOGLOBIN 10.8 g/dl (12.0-15.5); LYMPH # 1.9 10^3/uL (1.5-5.0); MEAN CORPUSCULAR HEMOGLOBIN 27.1 pg (27.0-33.0); MEAN CORPUSCULAR HGB CONC 32.4 g/dl (32.0-36.5); MEAN CORPUSCULAR VOLUME 83.7 fl (80.0-96.0); MONO # 0.8 10^3/uL (0.0-0.8); MONO % 10.9 % (2.0-8.0); NEUTROPHILS # 4.1 10^3/uL (1.5-8.5); NEUTROPHILS % 55.2 % (36.0-66.0); PLATELET COUNT, AUTOMATED 171 10^3/uL (150-450); RED BLOOD COUNT 3.98 10^6/uL (4.00-5.40); WHITE BLOOD COUNT 7.5 10^3/uL (4.0-10.0)
[2022-11-03 06:49] LABS: BLOOD UREA NITROGEN 29 MG/DL (9-23); CALCIUM LEVEL 8.2 MG/DL (8.3-10.6); CARBON DIOXIDE LEVEL 16 MMOL/L (20-31); CHLORIDE LEVEL 111 MMOL/L (98-107); CREATININE FOR GFR 0.82 MG/DL (0.55-1.30); GLOMERULAR FILTRATION RATE > 60.0 (>39); GLUCOSE, FASTING 128 MG/DL (74-106); MAGNESIUM LEVEL 1.6 MG/DL (1.8-2.4); POTASSIUM SERUM 4.5 MMOL/L (3.5-5.1); SODIUM LEVEL 137 MMOL/L (136-145)
[2022-11-03 07:43] LABS: PLATELET COUNT, AUTOMATED 167 10^3/uL (150-450)
[2022-11-03 09:00] VITALS: BP 152/90
[2022-11-03] MEDS: INSULIN LISPRO (NovoLOG) PER UNIT SC SCH ×4 (09:01→20:11)
[2022-11-03] MEDS: DULoxetine 30MG CAPSULE (CYMBALTA) PO SCH (09:02)
[2022-11-03] MEDS: LEVEMIR (INSULIN DETEMIR) 1 UNITS/0.01ML SC SCH ×2 (09:02→20:10)
[2022-11-03] MEDS: SPIRONOLACTONE 50 MG TAB PO SCH ×2 (09:02→18:03)
[2022-11-03] MEDS: ENOXAPARIN 40MG/0.4ML SYRINGE (J1650 PER 10MG) SC SCH (09:02)
[2022-11-03] MEDS: PANTOPRAZOLE 40MG TAB (PROTONIX) PO SCH ×2 (09:04→20:11)
[2022-11-03] MEDS: SODIUM BICARBONATE 325 MG TAB PO SCH ×4 (09:04→20:11)
[2022-11-03] MEDS: ASPIRIN 81MG ENTERIC TABLET PO SCH (09:04)
[2022-11-03] MEDS: rifAXIMin 550 MG TAB (XIFAXAN) PO SCH ×2 (09:04→20:11)
[2022-11-03] MEDS: LISINOPRIL *2.5 MG* TAB PO SCH (09:04)
[2022-11-03] MEDS: **hydrALAZINE** 50 MG TAB PO SCH ×2 (09:07→20:12)
[2022-11-03] MEDS: NYSTATIN OINTMENT 15 GM TOP SCH ×2 (09:08→20:12)
[2022-11-03] MEDS: ISOSORBIDE DIN. (ISORDIL) 30 MG TAB PO SCH ×3 (09:08→20:11)
[2022-11-03 19:47] VITALS: BP 132/59; TEMP 97.8; O2SAT 97
[2022-11-03] MEDS: MAG SULF 1GM/100ML (MAG RUN) 1 GM in IV 1 EA IV SCH ×2 (20:10→21:48)
[2022-11-03] MEDS: ATORVASTATIN 20 MG TAB PO SCH (20:11)
[2022-11-04] MEDS: LACTULOSE 20GM/30ML SYRUP UDC PO SCH ×4 (00:18→17:42)
[2022-11-04 05:07] LABS: BASO # 0.1 10^3/uL (0.0-0.2); BASO % 0.8 % (0.0-1.0); EOS # 0.5 10^3/uL (0.0-0.5); EOS % 7.5 % (0.0-3.0); HEMATOCRIT 31.2 % (36.0-47.0); HEMOGLOBIN 10.1 g/dl (12.0-15.5); LYMPH # 1.7 10^3/uL (1.5-5.0); LYMPH % 25.3 % (24.0-44.0); MEAN CORPUSCULAR HEMOGLOBIN 26.6 pg (27.0-33.0); MEAN CORPUSCULAR HGB CONC 32.4 g/dl (32.0-36.5); MEAN CORPUSCULAR VOLUME 82.3 fl (80.0-96.0); MONO # 0.9 10^3/uL (0.0-0.8); MONO % 13.4 % (2.0-8.0); NEUTROPHILS # 3.4 10^3/uL (1.5-8.5); NEUTROPHILS % 52.4 % (36.0-66.0); PLATELET COUNT, AUTOMATED 171 10^3/uL (150-450); RED BLOOD COUNT 3.79 10^6/uL (4.00-5.40); WHITE BLOOD COUNT 6.6 10^3/uL (4.0-10.0)
[2022-11-04 05:26] LABS: BLOOD UREA NITROGEN 33 MG/DL (9-23); CALCIUM LEVEL 7.7 MG/DL (8.3-10.6); CARBON DIOXIDE LEVEL 18 MMOL/L (20-31); CHLORIDE LEVEL 110 MMOL/L (98-107); CREATININE FOR GFR 0.89 MG/DL (0.55-1.30); GLOMERULAR FILTRATION RATE > 60.0 (>39); GLUCOSE, FASTING 161 MG/DL (74-106); POTASSIUM SERUM 4.7 MMOL/L (3.5-5.1); SODIUM LEVEL 136 MMOL/L (136-145)
[2022-11-04] MEDS: LEVOTHYROXINE 112MCG TABLET (0.112MG) PO SCH (05:39)
[2022-11-04 06:00] VITALS: BP 132/59; TEMP 97.8; O2SAT 97
[2022-11-04] MEDS: ENOXAPARIN 40MG/0.4ML SYRINGE (J1650 PER 10MG) SC SCH (09:00)
[2022-11-04] MEDS: LEVEMIR (INSULIN DETEMIR) 1 UNITS/0.01ML SC SCH ×2 (09:11→21:05)
[2022-11-04] MEDS: INSULIN LISPRO (NovoLOG) PER UNIT SC SCH ×4 (09:12→21:00)
[2022-11-04] MEDS: NYSTATIN OINTMENT 15 GM TOP SCH ×2 (09:12→21:00)
[2022-11-04] MEDS: SODIUM BICARBONATE 325 MG TAB PO SCH ×4 (09:12→21:04)
[2022-11-04] MEDS: rifAXIMin 550 MG TAB (XIFAXAN) PO SCH ×2 (09:13→21:05)
[2022-11-04] MEDS: SPIRONOLACTONE 50 MG TAB PO SCH ×2 (09:13→16:15)
[2022-11-04] MEDS: **hydrALAZINE** 50 MG TAB PO SCH ×2 (09:13→21:04)
[2022-11-04] MEDS: DULoxetine 30MG CAPSULE (CYMBALTA) PO SCH (09:14)
[2022-11-04] MEDS: PANTOPRAZOLE 40MG TAB (PROTONIX) PO SCH ×2 (09:14→21:05)
[2022-11-04] MEDS: LISINOPRIL *2.5 MG* TAB PO SCH (09:14)
[2022-11-04] MEDS: ISOSORBIDE DIN. (ISORDIL) 30 MG TAB PO SCH ×3 (09:14→21:05)
[2022-11-04] MEDS: ASPIRIN 81MG ENTERIC TABLET PO SCH (09:15)
[2022-11-04 16:15] VITALS: BP 141/74; TEMP 97.9
[2022-11-04] MEDS: ATORVASTATIN 20 MG TAB PO SCH (21:04)
[2022-11-05] VITALS (8 sets, daily range): BP systolic 120–156; BP diastolic 50–84; TEMP 97.9–98.7; O2SAT 94–99
[2022-11-05] MEDS: LEVOTHYROXINE 112MCG TABLET (0.112MG) PO SCH (05:31)
[2022-11-05] MEDS: LACTULOSE 20GM/30ML SYRUP UDC PO SCH ×4 (05:31→17:17)
[2022-11-05] MEDS: MORPHINE 4 MG/ML 1ML VIAL IV PRN ×3 (06:16→10:54)
[2022-11-05 07:16] LABS: CREATININE FOR GFR 1.1 MG/DL (0.55-1.30); GLOMERULAR FILTRATION RATE 52.3 (>39)
[2022-11-05] MEDS: INSULIN LISPRO (NovoLOG) PER UNIT SC SCH ×4 (07:30→21:53)
[2022-11-05] MEDS: LEVEMIR (INSULIN DETEMIR) 1 UNITS/0.01ML SC SCH ×2 (08:20→21:53)
[2022-11-05] MEDS: DULoxetine 30MG CAPSULE (CYMBALTA) PO SCH (08:23)
[2022-11-05] MEDS: SODIUM BICARBONATE 325 MG TAB PO SCH ×4 (08:23→21:52)
[2022-11-05] MEDS: ISOSORBIDE DIN. (ISORDIL) 30 MG TAB PO SCH ×3 (08:23→21:51)
[2022-11-05] MEDS: ASPIRIN 81MG ENTERIC TABLET PO SCH (08:24)
[2022-11-05] MEDS: rifAXIMin 550 MG TAB (XIFAXAN) PO SCH ×2 (08:24→21:52)
[2022-11-05] MEDS: **hydrALAZINE** 50 MG TAB PO SCH ×2 (08:24→21:52)
[2022-11-05] MEDS: LISINOPRIL *2.5 MG* TAB PO SCH (08:25)
[2022-11-05] MEDS: PANTOPRAZOLE 40MG TAB (PROTONIX) PO SCH ×2 (08:25→21:52)
[2022-11-05] MEDS: NYSTATIN OINTMENT 15 GM TOP SCH ×2 (08:26→21:54)
[2022-11-05] MEDS: NS 1,000 ML IV SCH (08:39)
[2022-11-05] MEDS ORDERED: HYDROMORPHONE HCL 0.5 MG/ 0.5 ML SYRINGE IV PRN ×2 (12:00→15:15)
[2022-11-05] MEDS: HYDROMORPHONE HCL 0.5 MG/ 0.5 ML SYRINGE IV PRN ×4 (12:09→22:03)
[2022-11-05] MEDS ORDERED: propofoL 200 MG/20 ML VIAL As Ordered ONE (13:22)
[2022-11-05] MEDS ORDERED: MIDAZOLAM INJ 2MG/2ML VIAL As Ordered ONE (13:22)
[2022-11-05] MEDS ORDERED: ROCURONIUM BROMIDE 50MG/5ML VIAL As Ordered ONE (13:22)
[2022-11-05] MEDS ORDERED: fentaNYL 100 MCG/2 ML INJECTION As Ordered ONE (13:22)
[2022-11-05] MEDS ORDERED: LIDOCAINE 2% 100MG/5ML SDV (FOR ANES.) As Ordered ONE (13:22)
[2022-11-05] MEDS ORDERED: INSULIN LISPRO (NovoLOG) PER UNIT As Ordered ONE (14:34)
[2022-11-05] MEDS ORDERED: ceFAZolin 2 GM/D5W 50 ML IV BAG As Ordered ONE (14:34)
[2022-11-05] MEDS ORDERED: METOCLOPRAMIDE INJ 10MG/2ML VIAL As Ordered ONE (14:39)
[2022-11-05] MEDS ORDERED: SUGAMMADEX SODIUM 500 MG/5 ML VIAL (BRIDION) As Ordered ONE (14:39)
[2022-11-05] MEDS ORDERED: ONDANSETRON 4MG 2ML VIAL As Ordered ONE (14:39)
[2022-11-05] MEDS ORDERED: ACETAMINOPHEN 1000MG 100ML IV BAG As Ordered ONE (14:41)
[2022-11-05] MEDS ORDERED: METOCLOPRAMIDE INJ 10MG/2ML VIAL IV PRN (15:15)
[2022-11-05] MEDS ORDERED: ONDANSETRON 4MG 2ML VIAL IV PRN (15:15)
[2022-11-05] MEDS ORDERED: fentaNYL 100 MCG/2 ML INJECTION IV PRN (15:15)
[2022-11-05] MEDS ORDERED: MEPERIDINE 25 MG/ML 1ML VIAL IV PRN (15:15)
[2022-11-05] MEDS ORDERED: LR 1,000 ML IV SCH (15:15)
[2022-11-05] MEDS ORDERED: INSULIN LISPRO (NovoLOG) PER UNIT SC PRN (15:15)
[2022-11-05] MEDS: ceFAZolin SOD 2 GM in IV 1 EA IV SCH (21:51)
[2022-11-05] MEDS: ATORVASTATIN 20 MG TAB PO SCH (21:52)
[2022-11-06] MEDS: NS 1,000 ML IV SCH ×2 (01:34→10:25)
[2022-11-06 02:11] VITALS: BP 140/44; TEMP 98.4; O2SAT 97
[2022-11-06 05:48] LABS: HEMATOCRIT 22.8 % (36.0-47.0); HEMOGLOBIN 7.3 g/dl (12.0-15.5); MEAN CORPUSCULAR HEMOGLOBIN 27.4 pg (27.0-33.0); MEAN CORPUSCULAR VOLUME 85.7 fl (80.0-96.0); PLATELET COUNT, AUTOMATED 193 10^3/uL (150-450); RED BLOOD COUNT 2.66 10^6/uL (4.00-5.40); WHITE BLOOD COUNT 12.3 10^3/uL (4.0-10.0)
[2022-11-06] MEDS: LEVOTHYROXINE 112MCG TABLET (0.112MG) PO SCH (05:58)
[2022-11-06] MEDS: ceFAZolin SOD 2 GM in IV 1 EA IV SCH (05:59)
[2022-11-06] MEDS: LACTULOSE 20GM/30ML SYRUP UDC PO SCH ×4 (05:59→20:57)
[2022-11-06 06:10] VITALS: BP 110/88; TEMP 98.2; O2SAT 95
[2022-11-06 06:19] LABS: CALCIUM LEVEL 7.5 MG/DL (8.3-10.6); CREATININE FOR GFR 1.42 MG/DL (0.55-1.30); GLOMERULAR FILTRATION RATE 38.9 (>39); POTASSIUM SERUM 5.7 MMOL/L (3.5-5.1)
[2022-11-06 06:44] LABS: ATYPICAL LYMPH 3 % (0-5); BASOPHILS 1 % (0-1); EOSINOPHILS 2 % (0-3); LYMPHOCYTES 17 % (16-44); MONOCYTES 10 % (0-5); NEUTROPHILS 67 % (28-66); PLATELET ESTIMATE NORMAL (NORMAL)
[2022-11-06] MEDS: LEVEMIR (INSULIN DETEMIR) 1 UNITS/0.01ML SC SCH ×2 (08:51→20:50)
[2022-11-06] MEDS: ISOSORBIDE DIN. (ISORDIL) 30 MG TAB PO SCH ×3 (08:51→20:50)
[2022-11-06] MEDS: ASPIRIN 81MG ENTERIC TABLET PO SCH (08:52)
[2022-11-06] MEDS: rifAXIMin 550 MG TAB (XIFAXAN) PO SCH ×2 (08:52→20:49)
[2022-11-06] MEDS: PANTOPRAZOLE 40MG TAB (PROTONIX) PO SCH (08:52)
[2022-11-06] MEDS: INSULIN LISPRO (NovoLOG) PER UNIT SC SCH ×4 (08:52→21:00)
[2022-11-06] MEDS: SODIUM BICARBONATE 325 MG TAB PO SCH ×4 (08:52→20:49)
[2022-11-06] MEDS: NYSTATIN OINTMENT 15 GM TOP SCH ×2 (08:53→20:51)
[2022-11-06] MEDS: DULoxetine 30MG CAPSULE (CYMBALTA) PO SCH (08:53)
[2022-11-06] MEDS: **hydrALAZINE** 50 MG TAB PO SCH ×2 (08:53→20:49)
[2022-11-06] MEDS: PERCOCET 5MG/325MG TAB PO PRN ×2 (09:30→17:19)
[2022-11-06] MEDS ORDERED: PATIROMER SORBITEX CALCIUM 8.4 GM POWDER PACKET (VELTASSA) PO ONE (10:20)
[2022-11-06 14:00] VITALS: BP 146/56; TEMP 98.1; O2SAT 98
[2022-11-06 19:26] VITALS: BP 152/57; TEMP 98.1; O2SAT 95
[2022-11-06] MEDS: ATORVASTATIN 20 MG TAB PO SCH (20:49)
[2022-11-07] VITALS (14 sets, daily range): BP systolic 137–166; BP diastolic 55–101; TEMP 97.7–98.8; O2SAT 87–100
[2022-11-07] MEDS: NS 1,000 ML IV SCH (04:23)
[2022-11-07] MEDS: LEVOTHYROXINE 112MCG TABLET (0.112MG) PO SCH (05:24)
[2022-11-07] MEDS: LACTULOSE 20GM/30ML SYRUP UDC PO SCH ×3 (05:24→21:01)
[2022-11-07 06:58] LABS: BASO # 0.1 10^3/uL (0.0-0.2); BASO % 0.6 % (0.0-1.0); EOS # 0.4 10^3/uL (0.0-0.5); EOS % 3.1 % (0.0-3.0); LYMPH # 1.7 10^3/uL (1.5-5.0); LYMPH % 12.9 % (24.0-44.0); MEAN CORPUSCULAR HEMOGLOBIN 28.3 pg (27.0-33.0); MEAN CORPUSCULAR HGB CONC 32.7 g/dl (32.0-36.5); MEAN CORPUSCULAR VOLUME 86.7 fl (80.0-96.0); MONO % 15.5 % (2.0-8.0); NEUTROPHILS # 8.9 10^3/uL (1.5-8.5); NEUTROPHILS % 66.8 % (36.0-66.0); PLATELET COUNT, AUTOMATED 178 10^3/uL (150-450); WHITE BLOOD COUNT 13.3 10^3/uL (4.0-10.0)
[2022-11-07 07:21] LABS: CALCIUM LEVEL 7.6 MG/DL (8.3-10.6); CREATININE FOR GFR 1.18 MG/DL (0.55-1.30); GLOMERULAR FILTRATION RATE 48.2 (>39); POTASSIUM SERUM 5.8 MMOL/L (3.5-5.1)
[2022-11-07 07:22] LABS: HEMATOCRIT 20.8 % (36.0-47.0); MONO # 2.1 10^3/uL (0.0-0.8)
[2022-11-07 07:24] LABS: HEMOGLOBIN 6.8 g/dl (12.0-15.5)
[2022-11-07] MEDS: ASPIRIN 81MG ENTERIC TABLET PO SCH (08:19)
[2022-11-07] MEDS: rifAXIMin 550 MG TAB (XIFAXAN) PO SCH ×2 (08:19→21:02)
[2022-11-07] MEDS: **hydrALAZINE** 50 MG TAB PO SCH ×2 (08:19→21:02)
[2022-11-07] MEDS: ISOSORBIDE DIN. (ISORDIL) 30 MG TAB PO SCH ×3 (08:19→21:01)
[2022-11-07] MEDS: DULoxetine 30MG CAPSULE (CYMBALTA) PO SCH (08:20)
[2022-11-07] MEDS: PANTOPRAZOLE 40MG TAB (PROTONIX) PO SCH (08:20)
[2022-11-07] MEDS: LEVEMIR (INSULIN DETEMIR) 1 UNITS/0.01ML SC SCH ×2 (08:26→21:03)
[2022-11-07] MEDS: NYSTATIN OINTMENT 15 GM TOP SCH ×2 (08:27→21:03)
[2022-11-07] MEDS: INSULIN LISPRO (NovoLOG) PER UNIT SC SCH ×4 (08:27→21:00)
[2022-11-07] MEDS: PERCOCET 5MG/325MG TAB PO PRN (08:32)
[2022-11-07] MEDS ORDERED: ENOXAPARIN 40MG/0.4ML SYRINGE (J1650 PER 10MG) SC SCH (09:00)
[2022-11-07] MEDS ORDERED: SODIUM BICARBONATE 150 MEQ in D5W 1,000 ML IV SCH (11:00)
[2022-11-07] MEDS: PATIROMER SORBITEX CALCIUM 8.4 GM POWDER PACKET (VELTASSA) PO SCH (12:16)
[2022-11-07] MEDS: ACETAMINOPHEN TAB 650MG DOSE (2X325MG) PO PRN (18:17)
[2022-11-07] MEDS ORDERED: FUROSEMIDE 20MG/2ML VIAL IV ONE (18:35)
[2022-11-07] MEDS: QUEtiapine FUMARATE 25 MG TAB PO SCH (21:02)
[2022-11-07] MEDS: ATORVASTATIN 20 MG TAB PO SCH (21:02)
[2022-11-07 21:29] LABS: HEMATOCRIT 24.3 % (36.0-47.0)
[2022-11-07 21:46] LABS: CALCIUM LEVEL 7.8 MG/DL (8.3-10.6); CREATININE FOR GFR 0.98 MG/DL (0.55-1.30); GLOMERULAR FILTRATION RATE 59.7 (>39); POTASSIUM SERUM 5.4 MMOL/L (3.5-5.1)
[2022-11-08] MEDS: LACTULOSE 20GM/30ML SYRUP UDC PO SCH ×3 (05:47→21:18)
[2022-11-08] MEDS: LEVOTHYROXINE 112MCG TABLET (0.112MG) PO SCH (05:48)
[2022-11-08] MEDS: ACETAMINOPHEN TAB 650MG DOSE (2X325MG) PO PRN ×4 (05:53→21:22)
[2022-11-08 06:12] LABS: BASO # 0.1 10^3/uL (0.0-0.2); BASO % 0.5 % (0.0-1.0); EOS # 0.3 10^3/uL (0.0-0.5); HEMATOCRIT 24.9 % (36.0-47.0); LYMPH # 1.5 10^3/uL (1.5-5.0); LYMPH % 14.6 % (24.0-44.0); MEAN CORPUSCULAR HEMOGLOBIN 27.4 pg (27.0-33.0); MEAN CORPUSCULAR HGB CONC 32.1 g/dl (32.0-36.5); MEAN CORPUSCULAR VOLUME 85.3 fl (80.0-96.0); MONO # 1.4 10^3/uL (0.0-0.8); MONO % 13.8 % (2.0-8.0); NEUTROPHILS # 6.8 10^3/uL (1.5-8.5); NEUTROPHILS % 67.3 % (36.0-66.0); PLATELET COUNT, AUTOMATED 139 10^3/uL (150-450); RED BLOOD COUNT 2.92 10^6/uL (4.00-5.40); WHITE BLOOD COUNT 10.1 10^3/uL (4.0-10.0)
[2022-11-08 06:26] LABS: BLOOD UREA NITROGEN 46 MG/DL (9-23); CALCIUM LEVEL 7.9 MG/DL (8.3-10.6); CARBON DIOXIDE LEVEL 22 MMOL/L (20-31); CHLORIDE LEVEL 110 MMOL/L (98-107); CREATININE FOR GFR 0.92 MG/DL (0.55-1.30); GLOMERULAR FILTRATION RATE > 60.0 (>39); GLUCOSE, FASTING 125 MG/DL (74-106); POTASSIUM SERUM 5.1 MMOL/L (3.5-5.1); SODIUM LEVEL 139 MMOL/L (136-145)
[2022-11-08 06:31] VITALS: TEMP 97.9; O2SAT 92
[2022-11-08] MEDS: INSULIN LISPRO (NovoLOG) PER UNIT SC SCH ×4 (07:30→21:00)
[2022-11-08] MEDS: PANTOPRAZOLE 40MG TAB (PROTONIX) PO SCH (08:57)
[2022-11-08] MEDS: DULoxetine 30MG CAPSULE (CYMBALTA) PO SCH (08:57)
[2022-11-08] MEDS: rifAXIMin 550 MG TAB (XIFAXAN) PO SCH ×2 (08:57→21:14)
[2022-11-08] MEDS: ASPIRIN 81MG ENTERIC TABLET PO SCH (08:57)
[2022-11-08] MEDS: NYSTATIN OINTMENT 15 GM TOP SCH ×2 (08:58→21:17)
[2022-11-08] MEDS: LEVEMIR (INSULIN DETEMIR) 1 UNITS/0.01ML SC SCH ×2 (08:58→21:16)
[2022-11-08] MEDS: ISOSORBIDE DIN. (ISORDIL) 30 MG TAB PO SCH ×3 (08:58→21:15)
[2022-11-08] MEDS: **hydrALAZINE** 50 MG TAB PO SCH ×2 (08:59→21:15)
[2022-11-08] MEDS: PATIROMER SORBITEX CALCIUM 8.4 GM POWDER PACKET (VELTASSA) PO SCH (12:32)
[2022-11-08 14:18] VITALS: BP 145/68; TEMP 98.1; O2SAT 95
[2022-11-08 20:01] VITALS: BP 145/61; TEMP 97.7; O2SAT 94
[2022-11-08] MEDS: ATORVASTATIN 20 MG TAB PO SCH (21:16)
[2022-11-08] MEDS: QUEtiapine FUMARATE 25 MG TAB PO SCH (21:16)
[2022-11-09 05:35] VITALS: BP 138/54; TEMP 98.1; O2SAT 94
[2022-11-09 06:12] LABS: BASO # 0.1 10^3/uL (0.0-0.2); BASO % 0.6 % (0.0-1.0); EOS # 0.4 10^3/uL (0.0-0.5); HEMATOCRIT 22.8 % (36.0-47.0); HEMOGLOBIN 7.3 g/dl (12.0-15.5); LYMPH # 1.1 10^3/uL (1.5-5.0); LYMPH % 13.5 % (24.0-44.0); MEAN CORPUSCULAR HEMOGLOBIN 27.3 pg (27.0-33.0); MEAN CORPUSCULAR VOLUME 85.4 fl (80.0-96.0); MONO % 12.3 % (2.0-8.0); NEUTROPHILS # 5.6 10^3/uL (1.5-8.5); NEUTROPHILS % 68.1 % (36.0-66.0); PLATELET COUNT, AUTOMATED 162 10^3/uL (150-450); RED BLOOD COUNT 2.67 10^6/uL (4.00-5.40); WHITE BLOOD COUNT 8.2 10^3/uL (4.0-10.0)
[2022-11-09] MEDS: LEVOTHYROXINE 112MCG TABLET (0.112MG) PO SCH (06:20)
[2022-11-09] MEDS: LACTULOSE 20GM/30ML SYRUP UDC PO SCH ×3 (06:20→19:59)
[2022-11-09] MEDS: ACETAMINOPHEN TAB 650MG DOSE (2X325MG) PO PRN ×4 (06:21→23:27)
[2022-11-09 06:45] LABS: BLOOD UREA NITROGEN 43 MG/DL (9-23); CALCIUM LEVEL 7.9 MG/DL (8.3-10.6); CARBON DIOXIDE LEVEL 21 MMOL/L (20-31); CHLORIDE LEVEL 108 MMOL/L (98-107); CREATININE FOR GFR 0.87 MG/DL (0.55-1.30); GLOMERULAR FILTRATION RATE > 60.0 (>39); GLUCOSE, FASTING 64 MG/DL (74-106); POTASSIUM SERUM 4.7 MMOL/L (3.5-5.1); SODIUM LEVEL 136 MMOL/L (136-145)
[2022-11-09] MEDS: INSULIN LISPRO (NovoLOG) PER UNIT SC SCH ×4 (07:58→19:56)
[2022-11-09] MEDS: rifAXIMin 550 MG TAB (XIFAXAN) PO SCH ×2 (09:30→19:54)
[2022-11-09] MEDS: PANTOPRAZOLE 40MG TAB (PROTONIX) PO SCH (09:30)
[2022-11-09] MEDS: ASPIRIN 81MG ENTERIC TABLET PO SCH (09:30)
[2022-11-09] MEDS: LEVEMIR (INSULIN DETEMIR) 1 UNITS/0.01ML SC SCH ×2 (09:30→19:56)
[2022-11-09] MEDS: NYSTATIN OINTMENT 15 GM TOP SCH ×2 (09:31→19:59)
[2022-11-09] MEDS: DULoxetine 30MG CAPSULE (CYMBALTA) PO SCH (09:31)
[2022-11-09] MEDS: ISOSORBIDE DIN. (ISORDIL) 30 MG TAB PO SCH ×3 (09:37→19:55)
[2022-11-09] MEDS: **hydrALAZINE** 50 MG TAB PO SCH ×2 (09:37→19:55)
[2022-11-09] MEDS: FUROSEMIDE 20 MG TAB PO SCH (11:03)
[2022-11-09] MEDS: PATIROMER SORBITEX CALCIUM 8.4 GM POWDER PACKET (VELTASSA) PO SCH (12:34)
[2022-11-09] MEDS: ATORVASTATIN 20 MG TAB PO SCH (19:54)
[2022-11-09] MEDS: QUEtiapine FUMARATE 25 MG TAB PO SCH (19:54)
[2022-11-09 20:51] VITALS: BP 133/52; TEMP 98.2; O2SAT 96
[2022-11-10 06:00] VITALS: BP 136/53; TEMP 97.9; O2SAT 94
[2022-11-10] MEDS: LEVOTHYROXINE 112MCG TABLET (0.112MG) PO SCH (06:09)
[2022-11-10] MEDS: LACTULOSE 20GM/30ML SYRUP UDC PO SCH ×3 (06:10→20:37)
[2022-11-10 07:33] LABS: BASO % 0.3 % (0.0-1.0); EOS # 0.4 10^3/uL (0.0-0.5); HEMATOCRIT 22.5 % (36.0-47.0); HEMOGLOBIN 7.4 g/dl (12.0-15.5); LYMPH # 0.9 10^3/uL (1.5-5.0); LYMPH % 13.3 % (24.0-44.0); MEAN CORPUSCULAR HGB CONC 32.9 g/dl (32.0-36.5); MEAN CORPUSCULAR VOLUME 85.2 fl (80.0-96.0); MONO # 0.9 10^3/uL (0.0-0.8); MONO % 12.8 % (2.0-8.0); NEUTROPHILS # 4.8 10^3/uL (1.5-8.5); PLATELET COUNT, AUTOMATED 161 10^3/uL (150-450); RED BLOOD COUNT 2.64 10^6/uL (4.00-5.40)
[2022-11-10 07:51] LABS: BLOOD UREA NITROGEN 48 MG/DL (9-23); CALCIUM LEVEL 7.9 MG/DL (8.3-10.6); CARBON DIOXIDE LEVEL 18 MMOL/L (20-31); CHLORIDE LEVEL 108 MMOL/L (98-107); CREATININE FOR GFR 0.88 MG/DL (0.55-1.30); GLOMERULAR FILTRATION RATE > 60.0 (>39); GLUCOSE, FASTING 221 MG/DL (74-106); MAGNESIUM LEVEL 2.1 MG/DL (1.8-2.4); SODIUM LEVEL 136 MMOL/L (136-145)
[2022-11-10] MEDS: LEVEMIR (INSULIN DETEMIR) 1 UNITS/0.01ML SC SCH ×2 (08:55→20:33)
[2022-11-10] MEDS: INSULIN LISPRO (NovoLOG) PER UNIT SC SCH ×4 (08:55→20:39)
[2022-11-10] MEDS: **hydrALAZINE** 50 MG TAB PO SCH ×2 (09:00→20:32)
[2022-11-10] MEDS: rifAXIMin 550 MG TAB (XIFAXAN) PO SCH ×2 (09:00→20:30)
[2022-11-10] MEDS: ASPIRIN 81MG ENTERIC TABLET PO SCH (09:00)
[2022-11-10] MEDS: ISOSORBIDE DIN. (ISORDIL) 30 MG TAB PO SCH ×3 (09:01→20:32)
[2022-11-10] MEDS: DULoxetine 30MG CAPSULE (CYMBALTA) PO SCH (09:03)
[2022-11-10] MEDS: PANTOPRAZOLE 40MG TAB (PROTONIX) PO SCH (09:03)
[2022-11-10] MEDS: FUROSEMIDE 20 MG TAB PO SCH (09:04)
[2022-11-10] MEDS: NYSTATIN OINTMENT 15 GM TOP SCH ×2 (09:06→20:33)
[2022-11-10] MEDS ORDERED: FUROSEMIDE 40MG/4ML VIAL IV ONE (11:00)
[2022-11-10] MEDS: PERCOCET 5MG/325MG TAB PO PRN ×2 (12:33→20:40)
[2022-11-10] MEDS: PATIROMER SORBITEX CALCIUM 8.4 GM POWDER PACKET (VELTASSA) PO SCH (12:34)
[2022-11-10] MEDS: ATORVASTATIN 20 MG TAB PO SCH (20:32)
[2022-11-10] MEDS: QUEtiapine FUMARATE 25 MG TAB PO SCH (20:32)
[2022-11-10 22:00] VITALS: BP 139/52; TEMP 98.4; O2SAT 96
[2022-11-10] MEDS: HEPARIN SOD (PORCINE) 5000UNITS/ML 1ML VIAL/SYRINGE SQ SCH (22:00)
[2022-11-11] MEDS: LEVOTHYROXINE 112MCG TABLET (0.112MG) PO SCH (05:49)
[2022-11-11] MEDS: LACTULOSE 20GM/30ML SYRUP UDC PO SCH ×3 (05:49→20:00)
[2022-11-11] MEDS: HEPARIN SOD (PORCINE) 5000UNITS/ML 1ML VIAL/SYRINGE SQ SCH ×3 (05:49→20:01)
[2022-11-11 06:00] VITALS: BP 121/63; TEMP 98.1; O2SAT 95
[2022-11-11 07:17] LABS: BASO # 0.1 10^3/uL (0.0-0.2); BASO % 0.6 % (0.0-1.0); EOS # 0.5 10^3/uL (0.0-0.5); EOS % 6.4 % (0.0-3.0); HEMATOCRIT 23.6 % (36.0-47.0); HEMOGLOBIN 7.5 g/dl (12.0-15.5); LYMPH # 0.9 10^3/uL (1.5-5.0); LYMPH % 11.3 % (24.0-44.0); MEAN CORPUSCULAR HEMOGLOBIN 27.3 pg (27.0-33.0); MEAN CORPUSCULAR HGB CONC 31.8 g/dl (32.0-36.5); MEAN CORPUSCULAR VOLUME 85.8 fl (80.0-96.0); MONO % 12.6 % (2.0-8.0); NEUTROPHILS # 5.4 10^3/uL (1.5-8.5); NEUTROPHILS % 68.7 % (36.0-66.0); PLATELET COUNT, AUTOMATED 197 10^3/uL (150-450); RED BLOOD COUNT 2.75 10^6/uL (4.00-5.40); WHITE BLOOD COUNT 7.9 10^3/uL (4.0-10.0)
[2022-11-11 07:41] LABS: BLOOD UREA NITROGEN 46 MG/DL (9-23); CALCIUM LEVEL 8.1 MG/DL (8.3-10.6); CARBON DIOXIDE LEVEL 19 MMOL/L (20-31); CHLORIDE LEVEL 111 MMOL/L (98-107); CREATININE FOR GFR 0.81 MG/DL (0.55-1.30); GLOMERULAR FILTRATION RATE > 60.0 (>39); GLUCOSE, FASTING 184 MG/DL (74-106); MAGNESIUM LEVEL 1.8 MG/DL (1.8-2.4); POTASSIUM SERUM 4.5 MMOL/L (3.5-5.1); SODIUM LEVEL 139 MMOL/L (136-145)
[2022-11-11] MEDS: PERCOCET 5MG/325MG TAB PO PRN ×4 (08:38→21:35)
[2022-11-11] MEDS: LEVEMIR (INSULIN DETEMIR) 1 UNITS/0.01ML SC SCH ×2 (08:40→20:02)
[2022-11-11] MEDS: INSULIN LISPRO (NovoLOG) PER UNIT SC SCH ×4 (08:40→20:01)
[2022-11-11] MEDS: ISOSORBIDE DIN. (ISORDIL) 30 MG TAB PO SCH ×3 (08:41→19:59)
[2022-11-11] MEDS: ASPIRIN 81MG ENTERIC TABLET PO SCH (08:41)
[2022-11-11] MEDS: DULoxetine 30MG CAPSULE (CYMBALTA) PO SCH (08:42)
[2022-11-11] MEDS: rifAXIMin 550 MG TAB (XIFAXAN) PO SCH ×2 (08:42→19:59)
[2022-11-11] MEDS: PANTOPRAZOLE 40MG TAB (PROTONIX) PO SCH (08:43)
[2022-11-11] MEDS: **hydrALAZINE** 50 MG TAB PO SCH ×2 (08:44→20:00)
[2022-11-11] MEDS: FUROSEMIDE 20 MG TAB PO SCH (08:44)
[2022-11-11] MEDS: NYSTATIN OINTMENT 15 GM TOP SCH ×2 (08:49→21:20)
[2022-11-11] MEDS ORDERED: FUROSEMIDE 20 MG TAB PO ONE (11:00)
[2022-11-11] MEDS: MAGNESIUM OXIDE 400MG TAB (MAG-OX) PO SCH ×2 (13:20→20:00)
[2022-11-11] MEDS: ATORVASTATIN 20 MG TAB PO SCH (20:00)
[2022-11-11] MEDS: QUEtiapine FUMARATE 25 MG TAB PO SCH (20:00)
[2022-11-11 22:00] VITALS: BP 133/62; TEMP 98.4; O2SAT 96
[2022-11-12] MEDS: LEVOTHYROXINE 112MCG TABLET (0.112MG) PO SCH (05:17)
[2022-11-12] MEDS: HEPARIN SOD (PORCINE) 5000UNITS/ML 1ML VIAL/SYRINGE SQ SCH ×3 (05:17→21:18)
[2022-11-12] MEDS: LACTULOSE 20GM/30ML SYRUP UDC PO SCH ×3 (05:17→21:18)
[2022-11-12 06:00] VITALS: BP 157/60; TEMP 98.1; O2SAT 96
[2022-11-12] MEDS: INSULIN LISPRO (NovoLOG) PER UNIT SC SCH ×4 (08:39→21:20)
[2022-11-12] MEDS: FUROSEMIDE 20 MG TAB PO SCH (08:40)
[2022-11-12] MEDS: LEVEMIR (INSULIN DETEMIR) 1 UNITS/0.01ML SC SCH ×2 (08:40→21:21)
[2022-11-12] MEDS: DULoxetine 30MG CAPSULE (CYMBALTA) PO SCH (08:40)
[2022-11-12] MEDS: PANTOPRAZOLE 40MG TAB (PROTONIX) PO SCH (08:40)
[2022-11-12] MEDS: MAGNESIUM OXIDE 400MG TAB (MAG-OX) PO SCH ×2 (08:41→21:19)
[2022-11-12] MEDS: ASPIRIN 81MG ENTERIC TABLET PO SCH (08:41)
[2022-11-12] MEDS: rifAXIMin 550 MG TAB (XIFAXAN) PO SCH ×2 (08:41→21:19)
[2022-11-12] MEDS: **hydrALAZINE** 50 MG TAB PO SCH ×2 (08:41→21:19)
[2022-11-12] MEDS: ISOSORBIDE DIN. (ISORDIL) 30 MG TAB PO SCH ×3 (08:41→21:19)
[2022-11-12] MEDS: PERCOCET 5MG/325MG TAB PO PRN (08:42)
[2022-11-12] MEDS: NYSTATIN OINTMENT 15 GM TOP SCH ×2 (09:21→21:21)
[2022-11-12 16:47] VITALS: BP 127/49
[2022-11-12] MEDS: QUEtiapine FUMARATE 25 MG TAB PO SCH (21:19)
[2022-11-12] MEDS: ATORVASTATIN 20 MG TAB PO SCH (21:19)
[2022-11-13] VITALS (7 sets, daily range): BP systolic 119–160; BP diastolic 51–62; TEMP 97.3–98.6; O2SAT 95–96
[2022-11-13] MEDS: LACTULOSE 20GM/30ML SYRUP UDC PO SCH ×3 (06:03→21:08)
[2022-11-13] MEDS: HEPARIN SOD (PORCINE) 5000UNITS/ML 1ML VIAL/SYRINGE SQ SCH ×3 (06:03→21:18)
[2022-11-13] MEDS: LEVOTHYROXINE 112MCG TABLET (0.112MG) PO SCH (06:03)
[2022-11-13] MEDS: INSULIN LISPRO (NovoLOG) PER UNIT SC SCH ×4 (07:30→21:05)
[2022-11-13 08:37] LABS: BASO # 0.1 10^3/uL (0.0-0.2); BASO % 0.8 % (0.0-1.0); EOS # 0.5 10^3/uL (0.0-0.5); EOS % 6.6 % (0.0-3.0); HEMATOCRIT 23.1 % (36.0-47.0); HEMOGLOBIN 7.3 g/dl (12.0-15.5); LYMPH # 0.9 10^3/uL (1.5-5.0); MEAN CORPUSCULAR HEMOGLOBIN 27.7 pg (27.0-33.0); MEAN CORPUSCULAR HGB CONC 31.6 g/dl (32.0-36.5); MEAN CORPUSCULAR VOLUME 87.5 fl (80.0-96.0); MONO % 13.3 % (2.0-8.0); NEUTROPHILS % 66.2 % (36.0-66.0); PLATELET COUNT, AUTOMATED 224 10^3/uL (150-450); RED BLOOD COUNT 2.64 10^6/uL (4.00-5.40); WHITE BLOOD COUNT 7.5 10^3/uL (4.0-10.0)
[2022-11-13 08:44] LABS: BLOOD UREA NITROGEN 49 MG/DL (9-23); CARBON DIOXIDE LEVEL 18 MMOL/L (20-31); CHLORIDE LEVEL 110 MMOL/L (98-107); CREATININE FOR GFR 0.74 MG/DL (0.55-1.30); GLOMERULAR FILTRATION RATE > 60.0 (>39); GLUCOSE, FASTING 204 MG/DL (74-106); POTASSIUM SERUM 4.6 MMOL/L (3.5-5.1); SODIUM LEVEL 137 MMOL/L (136-145)
[2022-11-13] MEDS: NYSTATIN OINTMENT 15 GM TOP SCH ×2 (09:00→21:07)
[2022-11-13] MEDS: ASPIRIN 81MG ENTERIC TABLET PO SCH (10:11)
[2022-11-13] MEDS: LEVEMIR (INSULIN DETEMIR) 1 UNITS/0.01ML SC SCH ×2 (10:11→21:04)
[2022-11-13] MEDS: SODIUM BICARBONATE 325 MG TAB PO SCH ×4 (10:11→21:06)
[2022-11-13] MEDS: PANTOPRAZOLE 40MG TAB (PROTONIX) PO SCH (10:12)
[2022-11-13] MEDS: **hydrALAZINE** 50 MG TAB PO SCH ×2 (10:12→21:06)
[2022-11-13] MEDS: MAGNESIUM OXIDE 400MG TAB (MAG-OX) PO SCH ×2 (10:12→21:06)
[2022-11-13] MEDS: ISOSORBIDE DIN. (ISORDIL) 30 MG TAB PO SCH ×3 (10:13→21:06)
[2022-11-13] MEDS: FUROSEMIDE 20 MG TAB PO SCH ×2 (10:13→21:10)
[2022-11-13] MEDS: rifAXIMin 550 MG TAB (XIFAXAN) PO SCH ×2 (10:13→21:06)
[2022-11-13] MEDS: DULoxetine 30MG CAPSULE (CYMBALTA) PO SCH (10:14)
[2022-11-13] MEDS: PERCOCET 5MG/325MG TAB PO PRN ×2 (16:10→21:04)
[2022-11-13] MEDS: QUEtiapine FUMARATE 25 MG TAB PO SCH (21:06)
[2022-11-13] MEDS: ATORVASTATIN 20 MG TAB PO SCH (21:06)
[2022-11-14] MEDS: LACTULOSE 20GM/30ML SYRUP UDC PO SCH ×3 (05:16→20:41)
[2022-11-14] MEDS: LEVOTHYROXINE 112MCG TABLET (0.112MG) PO SCH (05:17)
[2022-11-14] MEDS: HEPARIN SOD (PORCINE) 5000UNITS/ML 1ML VIAL/SYRINGE SQ SCH ×3 (05:17→20:41)
[2022-11-14 05:36] VITALS: BP 102/67; TEMP 98.1; O2SAT 96
[2022-11-14] MEDS: PERCOCET 5MG/325MG TAB PO PRN ×4 (05:38→20:44)
[2022-11-14 07:02] LABS: BASO # 0.1 10^3/uL (0.0-0.2); BASO % 0.8 % (0.0-1.0); EOS # 0.6 10^3/uL (0.0-0.5); EOS % 7.8 % (0.0-3.0); HEMATOCRIT 25.2 % (36.0-47.0); HEMOGLOBIN 8.1 g/dl (12.0-15.5); LYMPH # 1.2 10^3/uL (1.5-5.0); LYMPH % 15.3 % (24.0-44.0); MEAN CORPUSCULAR HEMOGLOBIN 28.1 pg (27.0-33.0); MEAN CORPUSCULAR HGB CONC 32.1 g/dl (32.0-36.5); MEAN CORPUSCULAR VOLUME 87.5 fl (80.0-96.0); MONO # 1.2 10^3/uL (0.0-0.8); NEUTROPHILS # 4.4 10^3/uL (1.5-8.5); NEUTROPHILS % 58.9 % (36.0-66.0); PLATELET COUNT, AUTOMATED 245 10^3/uL (150-450); RED BLOOD COUNT 2.88 10^6/uL (4.00-5.40); WHITE BLOOD COUNT 7.5 10^3/uL (4.0-10.0)
[2022-11-14 07:21] LABS: BLOOD UREA NITROGEN 50 MG/DL (9-23); CARBON DIOXIDE LEVEL 19 MMOL/L (20-31); CHLORIDE LEVEL 111 MMOL/L (98-107); CREATININE FOR GFR 0.83 MG/DL (0.55-1.30); GLOMERULAR FILTRATION RATE > 60.0 (>39); GLUCOSE, FASTING 146 MG/DL (74-106); MAGNESIUM LEVEL 1.6 MG/DL (1.8-2.4); POTASSIUM SERUM 4.4 MMOL/L (3.5-5.1); SODIUM LEVEL 139 MMOL/L (136-145)
[2022-11-14] MEDS: SODIUM BICARBONATE 325 MG TAB PO SCH ×4 (08:47→20:42)
[2022-11-14] MEDS: DULoxetine 30MG CAPSULE (CYMBALTA) PO SCH (08:47)
[2022-11-14] MEDS: MAGNESIUM OXIDE 400MG TAB (MAG-OX) PO SCH ×2 (08:47→20:42)
[2022-11-14] MEDS: PANTOPRAZOLE 40MG TAB (PROTONIX) PO SCH (08:47)
[2022-11-14] MEDS: ASPIRIN 81MG ENTERIC TABLET PO SCH (08:47)
[2022-11-14] MEDS: rifAXIMin 550 MG TAB (XIFAXAN) PO SCH ×2 (08:47→20:43)
[2022-11-14] MEDS: FUROSEMIDE 20 MG TAB PO SCH ×2 (08:47→16:55)
[2022-11-14] MEDS: **hydrALAZINE** 50 MG TAB PO SCH ×2 (08:48→20:43)
[2022-11-14] MEDS: ISOSORBIDE DIN. (ISORDIL) 30 MG TAB PO SCH ×3 (08:48→20:43)
[2022-11-14] MEDS: NYSTATIN OINTMENT 15 GM TOP SCH ×2 (08:49→20:44)
[2022-11-14] MEDS: LEVEMIR (INSULIN DETEMIR) 1 UNITS/0.01ML SC SCH ×2 (08:49→20:42)
[2022-11-14] MEDS: INSULIN LISPRO (NovoLOG) PER UNIT SC SCH ×4 (08:49→20:45)
[2022-11-14] MEDS ORDERED: SPIRONOLACTONE 50 MG TAB PO SCH (17:00)
[2022-11-14] MEDS: QUEtiapine FUMARATE 25 MG TAB PO SCH (20:43)
[2022-11-14] MEDS: ATORVASTATIN 20 MG TAB PO SCH (20:44)
[2022-11-15] MEDS: LACTULOSE 20GM/30ML SYRUP UDC PO SCH ×3 (05:28→21:17)
[2022-11-15] MEDS: LEVOTHYROXINE 112MCG TABLET (0.112MG) PO SCH (05:28)
[2022-11-15] MEDS: HEPARIN SOD (PORCINE) 5000UNITS/ML 1ML VIAL/SYRINGE SQ SCH ×3 (05:28→21:20)
[2022-11-15 05:37] VITALS: BP 124/57; TEMP 97.9; O2SAT 96
[2022-11-15] MEDS: MAGNESIUM OXIDE 400MG TAB (MAG-OX) PO SCH ×2 (07:58→21:17)
[2022-11-15] MEDS: rifAXIMin 550 MG TAB (XIFAXAN) PO SCH ×2 (07:58→21:18)
[2022-11-15] MEDS: SODIUM BICARBONATE 325 MG TAB PO SCH ×4 (07:58→21:17)
[2022-11-15] MEDS: ASPIRIN 81MG ENTERIC TABLET PO SCH (07:58)
[2022-11-15] MEDS: PANTOPRAZOLE 40MG TAB (PROTONIX) PO SCH (07:58)
[2022-11-15] MEDS: FUROSEMIDE 20 MG TAB PO SCH ×2 (07:59→17:07)
[2022-11-15] MEDS: LEVEMIR (INSULIN DETEMIR) 1 UNITS/0.01ML SC SCH ×2 (07:59→21:19)
[2022-11-15] MEDS: DULoxetine 30MG CAPSULE (CYMBALTA) PO SCH (07:59)
[2022-11-15] MEDS: INSULIN LISPRO (NovoLOG) PER UNIT SC SCH ×4 (08:00→21:00)
[2022-11-15] MEDS: **hydrALAZINE** 50 MG TAB PO SCH ×2 (08:00→21:17)
[2022-11-15] MEDS: ISOSORBIDE DIN. (ISORDIL) 30 MG TAB PO SCH ×3 (08:01→21:19)
[2022-11-15] MEDS: NYSTATIN OINTMENT 15 GM TOP SCH ×2 (08:01→21:20)
[2022-11-15 08:04] LABS: BASO # 0.1 10^3/uL (0.0-0.2); BASO % 0.9 % (0.0-1.0); EOS # 0.5 10^3/uL (0.0-0.5); EOS % 7.9 % (0.0-3.0); HEMATOCRIT 26.2 % (36.0-47.0); HEMOGLOBIN 8.3 g/dl (12.0-15.5); LYMPH % 15.4 % (24.0-44.0); MEAN CORPUSCULAR HEMOGLOBIN 28.2 pg (27.0-33.0); MEAN CORPUSCULAR HGB CONC 31.7 g/dl (32.0-36.5); MEAN CORPUSCULAR VOLUME 89.1 fl (80.0-96.0); NEUTROPHILS # 3.8 10^3/uL (1.5-8.5); PLATELET COUNT, AUTOMATED 237 10^3/uL (150-450); RED BLOOD COUNT 2.94 10^6/uL (4.00-5.40); WHITE BLOOD COUNT 6.4 10^3/uL (4.0-10.0)
[2022-11-15 08:43] LABS: BLOOD UREA NITROGEN 49 MG/DL (9-23); CALCIUM LEVEL 8.2 MG/DL (8.3-10.6); CARBON DIOXIDE LEVEL 19 MMOL/L (20-31); CHLORIDE LEVEL 110 MMOL/L (98-107); CREATININE FOR GFR 0.85 MG/DL (0.55-1.30); GLOMERULAR FILTRATION RATE > 60.0 (>39); GLUCOSE, FASTING 181 MG/DL (74-106); SODIUM LEVEL 139 MMOL/L (136-145)
[2022-11-15] MEDS: PERCOCET 5MG/325MG TAB PO PRN ×2 (10:05→21:18)
[2022-11-15] MEDS: QUEtiapine FUMARATE 25 MG TAB PO SCH (21:18)
[2022-11-15] MEDS: ATORVASTATIN 20 MG TAB PO SCH (21:19)
[2022-11-16 05:40] VITALS: BP 144/64; TEMP 98.1; O2SAT 98
[2022-11-16] MEDS: HEPARIN SOD (PORCINE) 5000UNITS/ML 1ML VIAL/SYRINGE SQ SCH ×3 (05:56→23:03)
[2022-11-16] MEDS: LACTULOSE 20GM/30ML SYRUP UDC PO SCH ×3 (05:56→22:00)
[2022-11-16] MEDS: LEVOTHYROXINE 112MCG TABLET (0.112MG) PO SCH (05:56)
[2022-11-16] MEDS: INSULIN LISPRO (NovoLOG) PER UNIT SC SCH ×4 (08:08→23:03)
[2022-11-16] MEDS: LEVEMIR (INSULIN DETEMIR) 1 UNITS/0.01ML SC SCH ×2 (08:09→20:09)
[2022-11-16] MEDS: SODIUM BICARBONATE 325 MG TAB PO SCH ×4 (08:09→20:12)
[2022-11-16] MEDS: MAGNESIUM OXIDE 400MG TAB (MAG-OX) PO SCH ×2 (08:09→20:10)
[2022-11-16] MEDS: FUROSEMIDE 20 MG TAB PO SCH ×2 (08:09→17:05)
[2022-11-16] MEDS: ASPIRIN 81MG ENTERIC TABLET PO SCH (08:09)
[2022-11-16] MEDS: DULoxetine 30MG CAPSULE (CYMBALTA) PO SCH (08:09)
[2022-11-16] MEDS: rifAXIMin 550 MG TAB (XIFAXAN) PO SCH ×2 (08:09→20:09)
[2022-11-16] MEDS: PANTOPRAZOLE 40MG TAB (PROTONIX) PO SCH (08:10)
[2022-11-16] MEDS: **hydrALAZINE** 50 MG TAB PO SCH ×2 (08:10→20:12)
[2022-11-16] MEDS: ISOSORBIDE DIN. (ISORDIL) 30 MG TAB PO SCH ×3 (08:10→20:11)
[2022-11-16] MEDS: NYSTATIN OINTMENT 15 GM TOP SCH ×2 (08:10→21:31)
[2022-11-16 16:52] VITALS: BP 145/65
[2022-11-16] MEDS: ATORVASTATIN 20 MG TAB PO SCH (20:12)
[2022-11-16] MEDS: QUEtiapine FUMARATE 25 MG TAB PO SCH (20:12)
[2022-11-16 20:15] VITALS: BP 148/65; TEMP 98.2; O2SAT 98
[2022-11-17 06:00] VITALS: BP 144/65; TEMP 98.1; O2SAT 98
[2022-11-17] MEDS: LEVOTHYROXINE 112MCG TABLET (0.112MG) PO SCH (06:07)
[2022-11-17] MEDS: HEPARIN SOD (PORCINE) 5000UNITS/ML 1ML VIAL/SYRINGE SQ SCH ×3 (06:07→20:11)
[2022-11-17] MEDS: LACTULOSE 20GM/30ML SYRUP UDC PO SCH ×3 (06:07→20:09)
[2022-11-17] MEDS: PERCOCET 5MG/325MG TAB PO PRN ×3 (06:13→16:40)
[2022-11-17] MEDS: INSULIN LISPRO (NovoLOG) PER UNIT SC SCH ×4 (08:20→20:11)
[2022-11-17] MEDS: LEVEMIR (INSULIN DETEMIR) 1 UNITS/0.01ML SC SCH ×2 (08:21→20:10)
[2022-11-17] MEDS: SODIUM BICARBONATE 325 MG TAB PO SCH ×4 (08:21→20:12)
[2022-11-17] MEDS: FUROSEMIDE 20 MG TAB PO SCH ×2 (08:21→16:40)
[2022-11-17] MEDS: ASPIRIN 81MG ENTERIC TABLET PO SCH (08:21)
[2022-11-17] MEDS: ISOSORBIDE DIN. (ISORDIL) 30 MG TAB PO SCH ×3 (08:21→20:12)
[2022-11-17] MEDS: MAGNESIUM OXIDE 400MG TAB (MAG-OX) PO SCH ×2 (08:21→20:13)
[2022-11-17] MEDS: PANTOPRAZOLE 40MG TAB (PROTONIX) PO SCH (08:22)
[2022-11-17] MEDS: DULoxetine 30MG CAPSULE (CYMBALTA) PO SCH (08:22)
[2022-11-17] MEDS: **hydrALAZINE** 50 MG TAB PO SCH ×2 (08:22→20:13)
[2022-11-17] MEDS: NYSTATIN OINTMENT 15 GM TOP SCH ×2 (08:22→20:14)
[2022-11-17] MEDS: rifAXIMin 550 MG TAB (XIFAXAN) PO SCH ×2 (08:22→20:13)
[2022-11-17 14:00] VITALS: BP 131/78; TEMP 98.1; O2SAT 94
[2022-11-17 19:47] VITALS: BP 150/60; TEMP 98.1; O2SAT 98
[2022-11-17] MEDS: ACETAMINOPHEN TAB 650MG DOSE (2X325MG) PO PRN (20:12)
[2022-11-17] MEDS: ATORVASTATIN 20 MG TAB PO SCH (20:12)
[2022-11-17] MEDS: QUEtiapine FUMARATE 25 MG TAB PO SCH (20:13)
[2022-11-18] MEDS: LEVOTHYROXINE 112MCG TABLET (0.112MG) PO SCH (05:51)
[2022-11-18] MEDS: LACTULOSE 20GM/30ML SYRUP UDC PO SCH ×3 (05:51→20:30)
[2022-11-18] MEDS: HEPARIN SOD (PORCINE) 5000UNITS/ML 1ML VIAL/SYRINGE SQ SCH ×3 (05:52→20:29)
[2022-11-18 06:00] VITALS: BP 150/60; TEMP 98.1; O2SAT 96
[2022-11-18 07:30] LABS: BASO # 0.1 10^3/uL (0.0-0.2); BASO % 1.1 % (0.0-1.0); EOS # 0.6 10^3/uL (0.0-0.5); EOS % 8.5 % (0.0-3.0); HEMATOCRIT 26.8 % (36.0-47.0); HEMOGLOBIN 8.1 g/dl (12.0-15.5); LYMPH % 14.1 % (24.0-44.0); MEAN CORPUSCULAR HEMOGLOBIN 27.7 pg (27.0-33.0); MEAN CORPUSCULAR HGB CONC 30.2 g/dl (32.0-36.5); MEAN CORPUSCULAR VOLUME 91.8 fl (80.0-96.0); MONO # 1.1 10^3/uL (0.0-0.8); MONO % 14.5 % (2.0-8.0); NEUTROPHILS # 4.6 10^3/uL (1.5-8.5); NEUTROPHILS % 61.4 % (36.0-66.0); PLATELET COUNT, AUTOMATED 277 10^3/uL (150-450); RED BLOOD COUNT 2.92 10^6/uL (4.00-5.40); WHITE BLOOD COUNT 7.4 10^3/uL (4.0-10.0)
[2022-11-18 07:54] LABS: BLOOD UREA NITROGEN 41 MG/DL (9-23); CARBON DIOXIDE LEVEL 20 MMOL/L (20-31); CHLORIDE LEVEL 112 MMOL/L (98-107); CREATININE FOR GFR 0.73 MG/DL (0.55-1.30); GLOMERULAR FILTRATION RATE > 60.0 (>39); GLUCOSE, FASTING 134 MG/DL (74-106); MAGNESIUM LEVEL 1.9 MG/DL (1.8-2.4); POTASSIUM SERUM 4.6 MMOL/L (3.5-5.1); SODIUM LEVEL 141 MMOL/L (136-145)
[2022-11-18] MEDS: INSULIN LISPRO (NovoLOG) PER UNIT SC SCH ×4 (09:07→20:30)
[2022-11-18] MEDS: LEVEMIR (INSULIN DETEMIR) 1 UNITS/0.01ML SC SCH ×2 (09:07→20:29)
[2022-11-18] MEDS: DULoxetine 30MG CAPSULE (CYMBALTA) PO SCH (09:08)
[2022-11-18] MEDS: PERCOCET 5MG/325MG TAB PO PRN (09:08)
[2022-11-18] MEDS: rifAXIMin 550 MG TAB (XIFAXAN) PO SCH ×2 (09:08→20:28)
[2022-11-18] MEDS: **hydrALAZINE** 50 MG TAB PO SCH ×2 (09:08→20:28)
[2022-11-18] MEDS: ASPIRIN 81MG ENTERIC TABLET PO SCH (09:09)
[2022-11-18] MEDS: MAGNESIUM OXIDE 400MG TAB (MAG-OX) PO SCH ×2 (09:09→20:27)
[2022-11-18] MEDS: ISOSORBIDE DIN. (ISORDIL) 30 MG TAB PO SCH ×3 (09:09→20:30)
[2022-11-18] MEDS: NYSTATIN OINTMENT 15 GM TOP SCH ×2 (09:09→20:30)
[2022-11-18] MEDS: FUROSEMIDE 20 MG TAB PO SCH ×2 (09:09→16:56)
[2022-11-18] MEDS: SODIUM BICARBONATE 325 MG TAB PO SCH ×4 (09:09→20:28)
[2022-11-18] MEDS: PANTOPRAZOLE 40MG TAB (PROTONIX) PO SCH (09:09)
[2022-11-18 14:04] VITALS: BP 144/60; TEMP 98.6; O2SAT 95
[2022-11-18] MEDS: ATORVASTATIN 20 MG TAB PO SCH (20:27)
[2022-11-18] MEDS: QUEtiapine FUMARATE 25 MG TAB PO SCH (20:28)
[2022-11-18] MEDS: ACETAMINOPHEN TAB 650MG DOSE (2X325MG) PO PRN (20:29)
[2022-11-19] MEDS: LACTULOSE 20GM/30ML SYRUP UDC PO SCH ×3 (05:39→20:15)
[2022-11-19] MEDS: HEPARIN SOD (PORCINE) 5000UNITS/ML 1ML VIAL/SYRINGE SQ SCH ×3 (05:48→20:15)
[2022-11-19] MEDS: LEVOTHYROXINE 112MCG TABLET (0.112MG) PO SCH (05:48)
[2022-11-19 06:02] VITALS: BP 143/59; TEMP 98.4; O2SAT 97
[2022-11-19 08:30] LABS: BASO # 0.1 10^3/uL (0.0-0.2); BASO % 0.9 % (0.0-1.0); EOS # 0.6 10^3/uL (0.0-0.5); EOS % 6.8 % (0.0-3.0); HEMATOCRIT 27.8 % (36.0-47.0); HEMOGLOBIN 8.6 g/dl (12.0-15.5); LYMPH # 0.9 10^3/uL (1.5-5.0); LYMPH % 11.1 % (24.0-44.0); MEAN CORPUSCULAR HGB CONC 30.9 g/dl (32.0-36.5); MEAN CORPUSCULAR VOLUME 90.6 fl (80.0-96.0); MONO % 12.2 % (2.0-8.0); NEUTROPHILS # 5.5 10^3/uL (1.5-8.5); NEUTROPHILS % 68.6 % (36.0-66.0); PLATELET COUNT, AUTOMATED 265 10^3/uL (150-450); RED BLOOD COUNT 3.07 10^6/uL (4.00-5.40); WHITE BLOOD COUNT 8.1 10^3/uL (4.0-10.0)
[2022-11-19] MEDS: MAGNESIUM OXIDE 400MG TAB (MAG-OX) PO SCH ×2 (08:34→20:11)
[2022-11-19] MEDS: TORSEMIDE 20 MG TAB PO SCH ×2 (08:35→17:18)
[2022-11-19] MEDS: LEVEMIR (INSULIN DETEMIR) 1 UNITS/0.01ML SC SCH ×2 (08:35→20:11)
[2022-11-19] MEDS: rifAXIMin 550 MG TAB (XIFAXAN) PO SCH ×2 (08:35→20:10)
[2022-11-19] MEDS: DULoxetine 30MG CAPSULE (CYMBALTA) PO SCH (08:36)
[2022-11-19] MEDS: ISOSORBIDE DIN. (ISORDIL) 30 MG TAB PO SCH ×3 (08:36→20:13)
[2022-11-19] MEDS: ASPIRIN 81MG ENTERIC TABLET PO SCH (08:36)
[2022-11-19] MEDS: **hydrALAZINE** 50 MG TAB PO SCH ×2 (08:36→20:13)
[2022-11-19] MEDS: SODIUM BICARBONATE 325 MG TAB PO SCH ×4 (08:36→20:09)
[2022-11-19] MEDS: PANTOPRAZOLE 40MG TAB (PROTONIX) PO SCH (08:36)
[2022-11-19] MEDS: PERCOCET 5MG/325MG TAB PO PRN ×3 (08:38→20:10)
[2022-11-19] MEDS: NYSTATIN OINTMENT 15 GM TOP SCH ×2 (08:40→20:15)
[2022-11-19] MEDS: INSULIN LISPRO (NovoLOG) PER UNIT SC SCH ×4 (08:42→20:14)
[2022-11-19 09:09] LABS: BLOOD UREA NITROGEN 37 MG/DL (9-23); CALCIUM LEVEL 8.1 MG/DL (8.3-10.6); CARBON DIOXIDE LEVEL 22 MMOL/L (20-31); CHLORIDE LEVEL 113 MMOL/L (98-107); CREATININE FOR GFR 0.75 MG/DL (0.55-1.30); GLOMERULAR FILTRATION RATE > 60.0 (>39); GLUCOSE, FASTING 155 MG/DL (74-106); POTASSIUM SERUM 4.9 MMOL/L (3.5-5.1); SODIUM LEVEL 142 MMOL/L (136-145)
[2022-11-19] MEDS: ATORVASTATIN 20 MG TAB PO SCH (20:10)
[2022-11-20] MEDS: LACTULOSE 20GM/30ML SYRUP UDC PO SCH ×3 (06:00→21:57)
[2022-11-20 06:11] VITALS: BP 152/67; TEMP 98.2; O2SAT 94
[2022-11-20] MEDS: LEVOTHYROXINE 112MCG TABLET (0.112MG) PO SCH (06:46)
[2022-11-20] MEDS: PERCOCET 5MG/325MG TAB PO PRN ×3 (06:47→22:21)
[2022-11-20] MEDS: HEPARIN SOD (PORCINE) 5000UNITS/ML 1ML VIAL/SYRINGE SQ SCH ×3 (06:49→21:59)
[2022-11-20] MEDS: INSULIN LISPRO (NovoLOG) PER UNIT SC SCH ×4 (09:38→21:00)
[2022-11-20] MEDS: DULoxetine 30MG CAPSULE (CYMBALTA) PO SCH (09:39)
[2022-11-20] MEDS: LEVEMIR (INSULIN DETEMIR) 1 UNITS/0.01ML SC SCH ×2 (09:39→21:58)
[2022-11-20] MEDS: PANTOPRAZOLE 40MG TAB (PROTONIX) PO SCH (09:40)
[2022-11-20] MEDS: ISOSORBIDE DIN. (ISORDIL) 30 MG TAB PO SCH ×3 (09:40→22:00)
[2022-11-20] MEDS: SODIUM BICARBONATE 325 MG TAB PO SCH ×4 (09:40→22:01)
[2022-11-20] MEDS: rifAXIMin 550 MG TAB (XIFAXAN) PO SCH ×2 (09:40→22:01)
[2022-11-20] MEDS: MAGNESIUM OXIDE 400MG TAB (MAG-OX) PO SCH ×2 (09:40→22:01)
[2022-11-20] MEDS: **hydrALAZINE** 50 MG TAB PO SCH ×2 (09:40→22:02)
[2022-11-20] MEDS: TORSEMIDE 20 MG TAB PO SCH ×2 (09:41→17:39)
[2022-11-20] MEDS: ASPIRIN 81MG ENTERIC TABLET PO SCH (09:41)
[2022-11-20] MEDS: NYSTATIN OINTMENT 15 GM TOP SCH ×2 (09:42→22:03)
[2022-11-20 21:46] VITALS: BP 146/68
[2022-11-20] MEDS: ATORVASTATIN 20 MG TAB PO SCH (22:02)
[2022-11-21] MEDS: PERCOCET 5MG/325MG TAB PO PRN ×3 (04:30→21:55)
[2022-11-21 05:34] VITALS: BP 127/47; TEMP 98.1; O2SAT 96
[2022-11-21] MEDS: LACTULOSE 20GM/30ML SYRUP UDC PO SCH ×3 (05:50→21:56)
[2022-11-21] MEDS: HEPARIN SOD (PORCINE) 5000UNITS/ML 1ML VIAL/SYRINGE SQ SCH ×3 (06:01→21:56)
[2022-11-21] MEDS: LEVOTHYROXINE 112MCG TABLET (0.112MG) PO SCH (06:01)
[2022-11-21 06:11] LABS: BASO # 0.1 10^3/uL (0.0-0.2); BASO % 0.9 % (0.0-1.0); EOS # 0.7 10^3/uL (0.0-0.5); EOS % 9.5 % (0.0-3.0); HEMOGLOBIN 8.7 g/dl (12.0-15.5); LYMPH % 13.1 % (24.0-44.0); MEAN CORPUSCULAR HEMOGLOBIN 28.1 pg (27.0-33.0); MEAN CORPUSCULAR HGB CONC 31.1 g/dl (32.0-36.5); MEAN CORPUSCULAR VOLUME 90.3 fl (80.0-96.0); MONO # 1.3 10^3/uL (0.0-0.8); MONO % 16.7 % (2.0-8.0); NEUTROPHILS # 4.5 10^3/uL (1.5-8.5); NEUTROPHILS % 59.4 % (36.0-66.0); PLATELET COUNT, AUTOMATED 269 10^3/uL (150-450); WHITE BLOOD COUNT 7.6 10^3/uL (4.0-10.0)
[2022-11-21 06:50] LABS: BLOOD UREA NITROGEN 39 MG/DL (9-23); CALCIUM LEVEL 7.9 MG/DL (8.3-10.6); CARBON DIOXIDE LEVEL 25 MMOL/L (20-31); CHLORIDE LEVEL 110 MMOL/L (98-107); CREATININE FOR GFR 0.74 MG/DL (0.55-1.30); GLOMERULAR FILTRATION RATE > 60.0 (>39); GLUCOSE, FASTING 117 MG/DL (74-106); MAGNESIUM LEVEL 1.6 MG/DL (1.8-2.4); POTASSIUM SERUM 3.5 MMOL/L (3.5-5.1); SODIUM LEVEL 144 MMOL/L (136-145)
[2022-11-21 08:00] VITALS: BP 152/57
[2022-11-21] MEDS: **hydrALAZINE** 50 MG TAB PO SCH ×2 (08:08→21:54)
[2022-11-21] MEDS: PANTOPRAZOLE 40MG TAB (PROTONIX) PO SCH (08:08)
[2022-11-21] MEDS: rifAXIMin 550 MG TAB (XIFAXAN) PO SCH ×2 (08:08→21:53)
[2022-11-21] MEDS: ISOSORBIDE DIN. (ISORDIL) 30 MG TAB PO SCH ×3 (08:09→21:54)
[2022-11-21] MEDS: MAGNESIUM OXIDE 400MG TAB (MAG-OX) PO SCH ×3 (08:09→21:55)
[2022-11-21] MEDS: DULoxetine 30MG CAPSULE (CYMBALTA) PO SCH (08:09)
[2022-11-21] MEDS: SODIUM BICARBONATE 325 MG TAB PO SCH ×3 (08:09→21:55)
[2022-11-21] MEDS: ASPIRIN 81MG ENTERIC TABLET PO SCH (08:09)
[2022-11-21] MEDS: TORSEMIDE 20 MG TAB PO SCH ×2 (08:10→16:15)
[2022-11-21] MEDS: LEVEMIR (INSULIN DETEMIR) 1 UNITS/0.01ML SC SCH ×2 (08:10→21:56)
[2022-11-21] MEDS: INSULIN LISPRO (NovoLOG) PER UNIT SC SCH ×4 (08:11→21:00)
[2022-11-21] MEDS: NYSTATIN OINTMENT 15 GM TOP SCH ×2 (08:12→21:57)
[2022-11-21] MEDS: POTASSIUM CHLORIDE 10MEQ SR TABLET PO SCH (09:17)
[2022-11-21] MEDS: SPIRONOLACTONE 25 MG TAB PO SCH (16:16)
[2022-11-21 20:00] VITALS: BP 129/73; TEMP 99; O2SAT 96
[2022-11-21] MEDS: ATORVASTATIN 20 MG TAB PO SCH (21:54)
[2022-11-22 05:28] VITALS: BP 143/68; TEMP 98.2; O2SAT 94
[2022-11-22] MEDS: HEPARIN SOD (PORCINE) 5000UNITS/ML 1ML VIAL/SYRINGE SQ SCH ×3 (06:17→21:28)
[2022-11-22] MEDS: LEVOTHYROXINE 112MCG TABLET (0.112MG) PO SCH (06:17)
[2022-11-22] MEDS: LACTULOSE 20GM/30ML SYRUP UDC PO SCH ×5 (06:17→21:27)
[2022-11-22] MEDS: SODIUM BICARBONATE 325 MG TAB PO SCH ×2 (08:23→21:29)
[2022-11-22] MEDS: ISOSORBIDE DIN. (ISORDIL) 30 MG TAB PO SCH ×3 (08:23→21:29)
[2022-11-22] MEDS: **hydrALAZINE** 50 MG TAB PO SCH ×2 (08:23→21:29)
[2022-11-22] MEDS: POTASSIUM CHLORIDE 10MEQ SR TABLET PO SCH (08:24)
[2022-11-22] MEDS: DULoxetine 30MG CAPSULE (CYMBALTA) PO SCH (08:24)
[2022-11-22] MEDS: MAGNESIUM OXIDE 400MG TAB (MAG-OX) PO SCH ×3 (08:24→21:29)
[2022-11-22] MEDS: rifAXIMin 550 MG TAB (XIFAXAN) PO SCH ×2 (08:24→21:30)
[2022-11-22] MEDS: ASPIRIN 81MG ENTERIC TABLET PO SCH (08:24)
[2022-11-22] MEDS: TORSEMIDE 20 MG TAB PO SCH ×2 (08:24→17:19)
[2022-11-22] MEDS: PANTOPRAZOLE 40MG TAB (PROTONIX) PO SCH (08:24)
[2022-11-22] MEDS: LEVEMIR (INSULIN DETEMIR) 1 UNITS/0.01ML SC SCH ×2 (08:26→21:28)
[2022-11-22] MEDS: SPIRONOLACTONE 25 MG TAB PO SCH ×2 (08:26→17:18)
[2022-11-22 08:27] LABS: BASO # 0.1 10^3/uL (0.0-0.2); BASO % 1.3 % (0.0-1.0); EOS # 0.6 10^3/uL (0.0-0.5); EOS % 8.7 % (0.0-3.0); HEMATOCRIT 29.1 % (36.0-47.0); HEMOGLOBIN 8.9 g/dl (12.0-15.5); LYMPH # 0.9 10^3/uL (1.5-5.0); LYMPH % 14.1 % (24.0-44.0); MEAN CORPUSCULAR HEMOGLOBIN 28.2 pg (27.0-33.0); MEAN CORPUSCULAR HGB CONC 30.6 g/dl (32.0-36.5); MEAN CORPUSCULAR VOLUME 92.1 fl (80.0-96.0); MONO % 14.5 % (2.0-8.0); NEUTROPHILS # 4.1 10^3/uL (1.5-8.5); PLATELET COUNT, AUTOMATED 264 10^3/uL (150-450); RED BLOOD COUNT 3.16 10^6/uL (4.00-5.40); WHITE BLOOD COUNT 6.7 10^3/uL (4.0-10.0)
[2022-11-22] MEDS: NYSTATIN OINTMENT 15 GM TOP SCH ×2 (08:27→21:30)
[2022-11-22] MEDS: INSULIN LISPRO (NovoLOG) PER UNIT SC SCH ×4 (08:31→21:00)
[2022-11-22 09:04] LABS: BLOOD UREA NITROGEN 39 MG/DL (9-23); CALCIUM LEVEL 8.3 MG/DL (8.3-10.6); CARBON DIOXIDE LEVEL 26 MMOL/L (20-31); CHLORIDE LEVEL 110 MMOL/L (98-107); CREATININE FOR GFR 0.79 MG/DL (0.55-1.30); GLOMERULAR FILTRATION RATE > 60.0 (>39); GLUCOSE, FASTING 249 MG/DL (74-106); MAGNESIUM LEVEL 1.7 MG/DL (1.8-2.4); POTASSIUM SERUM 3.9 MMOL/L (3.5-5.1); SODIUM LEVEL 144 MMOL/L (136-145)
[2022-11-22] MEDS: PERCOCET 5MG/325MG TAB PO PRN ×2 (15:43→21:49)
[2022-11-22 20:30] VITALS: TEMP 98.1
[2022-11-22] MEDS: QUEtiapine FUMARATE 25 MG TAB PO SCH (21:29)
[2022-11-22] MEDS: ATORVASTATIN 20 MG TAB PO SCH (21:29)
[2022-11-23] MEDS: LACTULOSE 20GM/30ML SYRUP UDC PO SCH ×3 (06:13→21:44)
[2022-11-23] MEDS: HEPARIN SOD (PORCINE) 5000UNITS/ML 1ML VIAL/SYRINGE SQ SCH ×3 (06:14→21:44)
[2022-11-23] MEDS: LEVOTHYROXINE 112MCG TABLET (0.112MG) PO SCH (06:14)
[2022-11-23 06:58] VITALS: BP 144/66; TEMP 98.1; O2SAT 94
[2022-11-23 07:34] LABS: BASO # 0.1 10^3/uL (0.0-0.2); BASO % 1.4 % (0.0-1.0); EOS # 0.7 10^3/uL (0.0-0.5); EOS % 11.9 % (0.0-3.0); HEMATOCRIT 26.9 % (36.0-47.0); HEMOGLOBIN 8.2 g/dl (12.0-15.5); LYMPH # 1.1 10^3/uL (1.5-5.0); LYMPH % 20.6 % (24.0-44.0); MEAN CORPUSCULAR HEMOGLOBIN 27.8 pg (27.0-33.0); MEAN CORPUSCULAR HGB CONC 30.5 g/dl (32.0-36.5); MEAN CORPUSCULAR VOLUME 91.2 fl (80.0-96.0); MONO % 17.5 % (2.0-8.0); NEUTROPHILS # 2.7 10^3/uL (1.5-8.5); NEUTROPHILS % 48.2 % (36.0-66.0); PLATELET COUNT, AUTOMATED 230 10^3/uL (150-450); RED BLOOD COUNT 2.95 10^6/uL (4.00-5.40); WHITE BLOOD COUNT 5.5 10^3/uL (4.0-10.0)
[2022-11-23 07:51] LABS: BLOOD UREA NITROGEN 37 MG/DL (9-23); CALCIUM LEVEL 8.4 MG/DL (8.3-10.6); CARBON DIOXIDE LEVEL 29 MMOL/L (20-31); CHLORIDE LEVEL 111 MMOL/L (98-107); CREATININE FOR GFR 0.79 MG/DL (0.55-1.30); GLOMERULAR FILTRATION RATE > 60.0 (>39); GLUCOSE, FASTING 147 MG/DL (74-106); MAGNESIUM LEVEL 1.8 MG/DL (1.8-2.4); POTASSIUM SERUM 3.8 MMOL/L (3.5-5.1); SODIUM LEVEL 145 MMOL/L (136-145)
[2022-11-23] MEDS: TORSEMIDE 20 MG TAB PO SCH ×2 (09:04→17:05)
[2022-11-23] MEDS: LEVEMIR (INSULIN DETEMIR) 1 UNITS/0.01ML SC SCH ×2 (09:04→21:43)
[2022-11-23] MEDS: DULoxetine 30MG CAPSULE (CYMBALTA) PO SCH (09:05)
[2022-11-23] MEDS: SPIRONOLACTONE 25 MG TAB PO SCH ×2 (09:05→17:05)
[2022-11-23] MEDS: PANTOPRAZOLE 40MG TAB (PROTONIX) PO SCH (09:05)
[2022-11-23] MEDS: ISOSORBIDE DIN. (ISORDIL) 30 MG TAB PO SCH ×3 (09:05→21:41)
[2022-11-23] MEDS: ASPIRIN 81MG ENTERIC TABLET PO SCH (09:05)
[2022-11-23] MEDS: rifAXIMin 550 MG TAB (XIFAXAN) PO SCH ×2 (09:05→21:43)
[2022-11-23] MEDS: POTASSIUM CHLORIDE 10MEQ SR TABLET PO SCH (09:05)
[2022-11-23] MEDS: MAGNESIUM OXIDE 400MG TAB (MAG-OX) PO SCH ×3 (09:06→21:44)
[2022-11-23] MEDS: **hydrALAZINE** 50 MG TAB PO SCH ×2 (09:06→21:43)
[2022-11-23] MEDS: PERCOCET 5MG/325MG TAB PO PRN ×2 (09:07→21:42)
[2022-11-23] MEDS: NYSTATIN OINTMENT 15 GM TOP SCH ×2 (09:07→21:45)
[2022-11-23] MEDS: INSULIN LISPRO (NovoLOG) PER UNIT SC SCH ×4 (09:11→21:00)
[2022-11-23] MEDS: QUEtiapine FUMARATE 25 MG TAB PO SCH (21:43)
[2022-11-23] MEDS: ATORVASTATIN 20 MG TAB PO SCH (21:43)
[2022-11-24] MEDS: HEPARIN SOD (PORCINE) 5000UNITS/ML 1ML VIAL/SYRINGE SQ SCH ×3 (05:31→20:59)
[2022-11-24] MEDS: LEVOTHYROXINE 112MCG TABLET (0.112MG) PO SCH (05:31)
[2022-11-24] MEDS: LACTULOSE 20GM/30ML SYRUP UDC PO SCH ×3 (05:31→20:56)
[2022-11-24 06:28] VITALS: BP 121/78; TEMP 98.1; O2SAT 96
[2022-11-24] MEDS: INSULIN LISPRO (NovoLOG) PER UNIT SC SCH ×4 (07:30→20:50)
[2022-11-24 08:03] LABS: BASO # 0.1 10^3/uL (0.0-0.2); BASO % 1.6 % (0.0-1.0); EOS # 0.7 10^3/uL (0.0-0.5); EOS % 13.8 % (0.0-3.0); HEMATOCRIT 27.3 % (36.0-47.0); HEMOGLOBIN 8.1 g/dl (12.0-15.5); LYMPH # 1.1 10^3/uL (1.5-5.0); MEAN CORPUSCULAR HEMOGLOBIN 28.4 pg (27.0-33.0); MEAN CORPUSCULAR HGB CONC 29.7 g/dl (32.0-36.5); MEAN CORPUSCULAR VOLUME 95.8 fl (80.0-96.0); MONO # 0.8 10^3/uL (0.0-0.8); MONO % 16.1 % (2.0-8.0); NEUTROPHILS # 2.4 10^3/uL (1.5-8.5); NEUTROPHILS % 47.3 % (36.0-66.0); PLATELET COUNT, AUTOMATED 221 10^3/uL (150-450); RED BLOOD COUNT 2.85 10^6/uL (4.00-5.40); WHITE BLOOD COUNT 5.1 10^3/uL (4.0-10.0)
[2022-11-24 08:34] LABS: BLOOD UREA NITROGEN 33 MG/DL (9-23); CARBON DIOXIDE LEVEL 26 MMOL/L (20-31); CHLORIDE LEVEL 110 MMOL/L (98-107); CREATININE FOR GFR 0.75 MG/DL (0.55-1.30); GLOMERULAR FILTRATION RATE > 60.0 (>39); GLUCOSE, FASTING 79 MG/DL (74-106); MAGNESIUM LEVEL 1.9 MG/DL (1.8-2.4); SODIUM LEVEL 146 MMOL/L (136-145)
[2022-11-24] MEDS: SPIRONOLACTONE 25 MG TAB PO SCH ×2 (09:17→16:49)
[2022-11-24] MEDS: rifAXIMin 550 MG TAB (XIFAXAN) PO SCH ×2 (09:18→20:47)
[2022-11-24] MEDS: DULoxetine 30MG CAPSULE (CYMBALTA) PO SCH (09:19)
[2022-11-24] MEDS: ISOSORBIDE DIN. (ISORDIL) 30 MG TAB PO SCH ×3 (09:19→20:48)
[2022-11-24] MEDS: PANTOPRAZOLE 40MG TAB (PROTONIX) PO SCH (09:20)
[2022-11-24] MEDS: POTASSIUM CHLORIDE 10MEQ SR TABLET PO SCH (09:21)
[2022-11-24] MEDS: MAGNESIUM OXIDE 400MG TAB (MAG-OX) PO SCH ×3 (09:22→20:48)
[2022-11-24] MEDS: **hydrALAZINE** 50 MG TAB PO SCH ×2 (09:23→20:49)
[2022-11-24] MEDS: ASPIRIN 81MG ENTERIC TABLET PO SCH (09:24)
[2022-11-24] MEDS: TORSEMIDE 20 MG TAB PO SCH ×2 (09:24→16:47)
[2022-11-24] MEDS: NYSTATIN OINTMENT 15 GM TOP SCH ×2 (09:25→20:51)
[2022-11-24] MEDS: PERCOCET 5MG/325MG TAB PO PRN ×3 (12:12→20:57)
[2022-11-24] MEDS: LEVEMIR (INSULIN DETEMIR) 1 UNITS/0.01ML SC SCH (12:12)
[2022-11-24] MEDS ORDERED: diphenhydrAMINE CREAM 30GM TOP PRN (17:40)
[2022-11-24] MEDS ORDERED: diphenhydrAMINE 25MG CAP PO ONE (17:40)
[2022-11-24] MEDS: ATORVASTATIN 20 MG TAB PO SCH (20:48)
[2022-11-24] MEDS: QUEtiapine FUMARATE 25 MG TAB PO SCH (20:48)
[2022-11-24] MEDS ORDERED: LEVEMIR (INSULIN DETEMIR) 1 UNITS/0.01ML SC SCH (21:00)
[2022-11-25] MEDS: PERCOCET 5MG/325MG TAB PO PRN ×2 (01:59→20:14)
[2022-11-25] MEDS: LACTULOSE 20GM/30ML SYRUP UDC PO SCH ×3 (05:17→20:15)
[2022-11-25] MEDS: LEVOTHYROXINE 112MCG TABLET (0.112MG) PO SCH (05:17)
[2022-11-25] MEDS: HEPARIN SOD (PORCINE) 5000UNITS/ML 1ML VIAL/SYRINGE SQ SCH ×3 (05:17→20:23)
[2022-11-25 05:53] VITALS: BP 139/88; TEMP 98.1; O2SAT 97
[2022-11-25] MEDS: INSULIN LISPRO (NovoLOG) PER UNIT SC SCH ×4 (06:45→21:00)
[2022-11-25 08:05] LABS: BASO # 0.1 10^3/uL (0.0-0.2); BASO % 1.6 % (0.0-1.0); EOS # 0.8 10^3/uL (0.0-0.5); HEMATOCRIT 28.3 % (36.0-47.0); HEMOGLOBIN 8.5 g/dl (12.0-15.5); LYMPH % 18.5 % (24.0-44.0); MEAN CORPUSCULAR VOLUME 93.1 fl (80.0-96.0); MONO # 0.9 10^3/uL (0.0-0.8); MONO % 16.5 % (2.0-8.0); NEUTROPHILS # 2.7 10^3/uL (1.5-8.5); NEUTROPHILS % 48.2 % (36.0-66.0); PLATELET COUNT, AUTOMATED 228 10^3/uL (150-450); RED BLOOD COUNT 3.04 10^6/uL (4.00-5.40); WHITE BLOOD COUNT 5.5 10^3/uL (4.0-10.0)
[2022-11-25 08:30] LABS: BLOOD UREA NITROGEN 30 MG/DL (9-23); CALCIUM LEVEL 7.8 MG/DL (8.3-10.6); CARBON DIOXIDE LEVEL 29 MMOL/L (20-31); CHLORIDE LEVEL 107 MMOL/L (98-107); CREATININE FOR GFR 0.91 MG/DL (0.55-1.30); GLOMERULAR FILTRATION RATE > 60.0 (>39); GLUCOSE, FASTING 96 MG/DL (74-106); POTASSIUM SERUM 4.3 MMOL/L (3.5-5.1); SODIUM LEVEL 143 MMOL/L (136-145)
[2022-11-25] MEDS: ASPIRIN 81MG ENTERIC TABLET PO SCH (09:55)
[2022-11-25] MEDS: POTASSIUM CHLORIDE 10MEQ SR TABLET PO SCH (09:56)
[2022-11-25] MEDS: MAGNESIUM OXIDE 400MG TAB (MAG-OX) PO SCH ×3 (09:57→20:13)
[2022-11-25] MEDS: PANTOPRAZOLE 40MG TAB (PROTONIX) PO SCH (09:58)
[2022-11-25] MEDS: rifAXIMin 550 MG TAB (XIFAXAN) PO SCH ×2 (09:58→20:12)
[2022-11-25] MEDS: **hydrALAZINE** 50 MG TAB PO SCH ×2 (09:58→20:13)
[2022-11-25] MEDS: TORSEMIDE 20 MG TAB PO SCH ×2 (09:59→16:55)
[2022-11-25] MEDS: ISOSORBIDE DIN. (ISORDIL) 30 MG TAB PO SCH ×3 (10:00→20:13)
[2022-11-25] MEDS: DULoxetine 30MG CAPSULE (CYMBALTA) PO SCH (10:00)
[2022-11-25] MEDS: SPIRONOLACTONE 25 MG TAB PO SCH ×2 (10:01→16:55)
[2022-11-25] MEDS: NYSTATIN OINTMENT 15 GM TOP SCH ×2 (10:02→20:14)
[2022-11-25] MEDS: LEVEMIR (INSULIN DETEMIR) 1 UNITS/0.01ML SC SCH (10:58)
[2022-11-25] MEDS: ATORVASTATIN 20 MG TAB PO SCH (20:12)
[2022-11-25] MEDS: QUEtiapine FUMARATE 25 MG TAB PO SCH (20:13)
[2022-11-26] MEDS: LEVOTHYROXINE 112MCG TABLET (0.112MG) PO SCH (05:15)
[2022-11-26] MEDS: LACTULOSE 20GM/30ML SYRUP UDC PO SCH ×3 (05:15→22:00)
[2022-11-26] MEDS: HEPARIN SOD (PORCINE) 5000UNITS/ML 1ML VIAL/SYRINGE SQ SCH ×3 (05:16→22:37)
[2022-11-26 05:21] VITALS: BP 150/65; TEMP 98.2; O2SAT 93
[2022-11-26 06:54] LABS: BASO # 0.1 10^3/uL (0.0-0.2); BASO % 1.6 % (0.0-1.0); EOS # 0.7 10^3/uL (0.0-0.5); EOS % 14.1 % (0.0-3.0); HEMATOCRIT 27.7 % (36.0-47.0); HEMOGLOBIN 8.4 g/dl (12.0-15.5); LYMPH % 19.8 % (24.0-44.0); MEAN CORPUSCULAR HEMOGLOBIN 28.3 pg (27.0-33.0); MEAN CORPUSCULAR HGB CONC 30.3 g/dl (32.0-36.5); MEAN CORPUSCULAR VOLUME 93.3 fl (80.0-96.0); MONO # 0.7 10^3/uL (0.0-0.8); MONO % 14.1 % (2.0-8.0); NEUTROPHILS # 2.6 10^3/uL (1.5-8.5); NEUTROPHILS % 50.2 % (36.0-66.0); PLATELET COUNT, AUTOMATED 222 10^3/uL (150-450); RED BLOOD COUNT 2.97 10^6/uL (4.00-5.40); WHITE BLOOD COUNT 5.1 10^3/uL (4.0-10.0)
[2022-11-26 07:01] LABS: BLOOD UREA NITROGEN 28 MG/DL (9-23); CALCIUM LEVEL 8.1 MG/DL (8.3-10.6); CARBON DIOXIDE LEVEL 27 MMOL/L (20-31); CHLORIDE LEVEL 109 MMOL/L (98-107); CREATININE FOR GFR 0.83 MG/DL (0.55-1.30); GLOMERULAR FILTRATION RATE > 60.0 (>39); GLUCOSE, FASTING 155 MG/DL (74-106); MAGNESIUM LEVEL 2.2 MG/DL (1.8-2.4); POTASSIUM SERUM 4.4 MMOL/L (3.5-5.1); SODIUM LEVEL 143 MMOL/L (136-145)
[2022-11-26] MEDS: rifAXIMin 550 MG TAB (XIFAXAN) PO SCH ×2 (08:07→22:36)
[2022-11-26] MEDS: LEVEMIR (INSULIN DETEMIR) 1 UNITS/0.01ML SC SCH (08:08)
[2022-11-26] MEDS: INSULIN LISPRO (NovoLOG) PER UNIT SC SCH ×4 (08:08→21:00)
[2022-11-26] MEDS: SPIRONOLACTONE 25 MG TAB PO SCH ×2 (08:09→17:26)
[2022-11-26] MEDS: MAGNESIUM OXIDE 400MG TAB (MAG-OX) PO SCH ×3 (08:09→22:35)
[2022-11-26] MEDS: POTASSIUM CHLORIDE 10MEQ SR TABLET PO SCH (08:09)
[2022-11-26] MEDS: PANTOPRAZOLE 40MG TAB (PROTONIX) PO SCH (08:09)
[2022-11-26] MEDS: **hydrALAZINE** 50 MG TAB PO SCH ×2 (08:10→22:36)
[2022-11-26] MEDS: ISOSORBIDE DIN. (ISORDIL) 30 MG TAB PO SCH ×3 (08:10→22:35)
[2022-11-26] MEDS: ASPIRIN 81MG ENTERIC TABLET PO SCH (08:10)
[2022-11-26] MEDS: DULoxetine 30MG CAPSULE (CYMBALTA) PO SCH (08:10)
[2022-11-26] MEDS: TORSEMIDE 20 MG TAB PO SCH ×2 (08:11→17:27)
[2022-11-26] MEDS: NYSTATIN OINTMENT 15 GM TOP SCH ×2 (08:12→21:00)
[2022-11-26] MEDS: PERCOCET 5MG/325MG TAB PO PRN ×3 (08:22→22:33)
[2022-11-26 13:28] VITALS: BP 147/61; TEMP 98.1; O2SAT 97
[2022-11-26] MEDS: QUEtiapine FUMARATE 25 MG TAB PO SCH (22:36)
[2022-11-26] MEDS: ATORVASTATIN 20 MG TAB PO SCH (22:36)
[2022-11-27 03:32] VITALS: BP 137/56; TEMP 98.2; O2SAT 92
[2022-11-27] MEDS: PERCOCET 5MG/325MG TAB PO PRN ×3 (03:41→16:10)
[2022-11-27] MEDS: LEVOTHYROXINE 112MCG TABLET (0.112MG) PO SCH (05:35)
[2022-11-27] MEDS: HEPARIN SOD (PORCINE) 5000UNITS/ML 1ML VIAL/SYRINGE SQ SCH ×3 (05:36→22:07)
[2022-11-27] MEDS: LACTULOSE 20GM/30ML SYRUP UDC PO SCH ×3 (05:36→22:00)
[2022-11-27 07:12] LABS: BASO # 0.1 10^3/uL (0.0-0.2); BASO % 1.2 % (0.0-1.0); EOS # 0.6 10^3/uL (0.0-0.5); EOS % 10.9 % (0.0-3.0); HEMATOCRIT 26.9 % (36.0-47.0); HEMOGLOBIN 8.2 g/dl (12.0-15.5); LYMPH % 19.2 % (24.0-44.0); MEAN CORPUSCULAR HEMOGLOBIN 28.3 pg (27.0-33.0); MEAN CORPUSCULAR HGB CONC 30.5 g/dl (32.0-36.5); MEAN CORPUSCULAR VOLUME 92.8 fl (80.0-96.0); MONO # 0.8 10^3/uL (0.0-0.8); MONO % 15.7 % (2.0-8.0); NEUTROPHILS # 2.7 10^3/uL (1.5-8.5); PLATELET COUNT, AUTOMATED 197 10^3/uL (150-450); WHITE BLOOD COUNT 5.2 10^3/uL (4.0-10.0)
[2022-11-27 07:34] LABS: BLOOD UREA NITROGEN 29 MG/DL (9-23); CARBON DIOXIDE LEVEL 27 MMOL/L (20-31); CHLORIDE LEVEL 107 MMOL/L (98-107); CREATININE FOR GFR 0.93 MG/DL (0.55-1.30); GLOMERULAR FILTRATION RATE > 60.0 (>39); GLUCOSE, FASTING 192 MG/DL (74-106); MAGNESIUM LEVEL 2.1 MG/DL (1.8-2.4); POTASSIUM SERUM 4.3 MMOL/L (3.5-5.1); SODIUM LEVEL 141 MMOL/L (136-145)
[2022-11-27] MEDS: LEVEMIR (INSULIN DETEMIR) 1 UNITS/0.01ML SC SCH (09:14)
[2022-11-27] MEDS: INSULIN LISPRO (NovoLOG) PER UNIT SC SCH ×4 (09:14→20:55)
[2022-11-27] MEDS: TORSEMIDE 20 MG TAB PO SCH ×2 (09:15→17:54)
[2022-11-27] MEDS: ISOSORBIDE DIN. (ISORDIL) 30 MG TAB PO SCH ×3 (09:15→22:06)
[2022-11-27] MEDS: ASPIRIN 81MG ENTERIC TABLET PO SCH (09:15)
[2022-11-27] MEDS: PANTOPRAZOLE 40MG TAB (PROTONIX) PO SCH (09:15)
[2022-11-27] MEDS: **hydrALAZINE** 50 MG TAB PO SCH ×2 (09:16→22:07)
[2022-11-27] MEDS: DULoxetine 30MG CAPSULE (CYMBALTA) PO SCH (09:16)
[2022-11-27] MEDS: MAGNESIUM OXIDE 400MG TAB (MAG-OX) PO SCH ×3 (09:16→22:07)
[2022-11-27] MEDS: rifAXIMin 550 MG TAB (XIFAXAN) PO SCH ×2 (09:17→22:06)
[2022-11-27] MEDS: POTASSIUM CHLORIDE 10MEQ SR TABLET PO SCH (09:17)
[2022-11-27] MEDS: SPIRONOLACTONE 25 MG TAB PO SCH ×2 (09:17→17:55)
[2022-11-27] MEDS: NYSTATIN OINTMENT 15 GM TOP SCH ×2 (09:18→22:07)
[2022-11-27] MEDS: ATORVASTATIN 20 MG TAB PO SCH (22:06)
[2022-11-27] MEDS: QUEtiapine FUMARATE 25 MG TAB PO SCH (22:06)
[2022-11-28] MEDS: LACTULOSE 20GM/30ML SYRUP UDC PO SCH (06:08)
[2022-11-28] MEDS: LEVOTHYROXINE 112MCG TABLET (0.112MG) PO SCH (06:08)
[2022-11-28] MEDS: HEPARIN SOD (PORCINE) 5000UNITS/ML 1ML VIAL/SYRINGE SQ SCH (06:08)
[2022-11-28 06:28] VITALS: BP 134/58; TEMP 98.1; O2SAT 96
[2022-11-28 06:37] LABS: BASO # 0.1 10^3/uL (0.0-0.2); BASO % 1.3 % (0.0-1.0); EOS # 0.5 10^3/uL (0.0-0.5); EOS % 9.5 % (0.0-3.0); HEMATOCRIT 28.1 % (36.0-47.0); HEMOGLOBIN 8.6 g/dl (12.0-15.5); LYMPH % 17.6 % (24.0-44.0); MEAN CORPUSCULAR HEMOGLOBIN 28.2 pg (27.0-33.0); MEAN CORPUSCULAR HGB CONC 30.6 g/dl (32.0-36.5); MEAN CORPUSCULAR VOLUME 92.1 fl (80.0-96.0); MONO # 0.8 10^3/uL (0.0-0.8); MONO % 14.6 % (2.0-8.0); NEUTROPHILS # 3.2 10^3/uL (1.5-8.5); NEUTROPHILS % 56.8 % (36.0-66.0); PLATELET COUNT, AUTOMATED 201 10^3/uL (150-450); RED BLOOD COUNT 3.05 10^6/uL (4.00-5.40); WHITE BLOOD COUNT 5.6 10^3/uL (4.0-10.0)
[2022-11-28 07:04] LABS: CALCIUM LEVEL 8.1 MG/DL (8.3-10.6); CREATININE FOR GFR 1.04 MG/DL (0.55-1.30); GLOMERULAR FILTRATION RATE 55.8 (>39); MAGNESIUM LEVEL 2.1 MG/DL (1.8-2.4); POTASSIUM SERUM 4.7 MMOL/L (3.5-5.1)
[2022-11-28] MEDS ORDERED: LEVEMIR (INSULIN DETEMIR) 1 UNITS/0.01ML SC SCH (09:00)
[2022-11-28 09:27] VITALS: BP 153/63
[2022-11-28] MEDS: POTASSIUM CHLORIDE 10MEQ SR TABLET PO SCH (09:27)
[2022-11-28] MEDS: **hydrALAZINE** 50 MG TAB PO SCH (09:27)
[2022-11-28] MEDS: MAGNESIUM OXIDE 400MG TAB (MAG-OX) PO SCH (09:27)
[2022-11-28] MEDS: ASPIRIN 81MG ENTERIC TABLET PO SCH (09:28)
[2022-11-28] MEDS: rifAXIMin 550 MG TAB (XIFAXAN) PO SCH (09:28)
[2022-11-28] MEDS: PANTOPRAZOLE 40MG TAB (PROTONIX) PO SCH (09:28)
[2022-11-28] MEDS: DULoxetine 30MG CAPSULE (CYMBALTA) PO SCH (09:28)
[2022-11-28] MEDS: TORSEMIDE 20 MG TAB PO SCH (09:28)
[2022-11-28] MEDS: SPIRONOLACTONE 25 MG TAB PO SCH (09:29)
[2022-11-28] MEDS: ISOSORBIDE DIN. (ISORDIL) 30 MG TAB PO SCH (09:29)
[2022-11-28] MEDS: INSULIN LISPRO (NovoLOG) PER UNIT SC SCH (09:30)
[2022-11-28] MEDS: NYSTATIN OINTMENT 15 GM TOP SCH (09:33)
[2022-11-28] MEDS ORDERED: LACT20EL PO (09:43)
[2022-11-28] MEDS ORDERED: MAGN400T2 PO (09:43)
[2022-11-28] MEDS ORDERED: TORS20TA2 PO (09:43)
[2022-11-28] MEDS ORDERED: POTA-136 PO (09:43)
[2022-11-28] MEDS ORDERED: XIFA550T PO (09:43)
[2022-11-28] MEDS ORDERED: HUMA100I3 SC (09:43)
[2022-11-28] MEDS ORDERED: ALDA25TA2 PO (09:43)
[2022-11-28] MEDS ORDERED: PANT40TA29 PO (09:43)
[2022-11-28] MEDS: PERCOCET 5MG/325MG TAB PO PRN (11:00)
== END 2022-11-28 11:25 | DRG 982 ==
LOC: M ED 10:33 → M ED INP 16:13 → ENRESERV 17:02 → M PCU 17:49 → M MS5PR 11-04 05:57
PROVIDERS: ADMIT Student in an Organized Health Care Education/Training Program; ATTEND Internal Medicine
PROC: 0QS636Z Reposition Right Upper Femur with Intramedullary Internal Fixation Device, Percutaneous Approach (ICD-10-PCS; principal; 2022-11-05 13:00)
PROC: 30233N1 Transfusion of Nonautologous Red Blood Cells into Peripheral Vein, Percutaneous Approach (ICD-10-PCS; 2022-11-07)
DX: K76.82 Hepatic encephalopathy (principal); I50.32 Chronic diastolic (congestive) heart failure; E87.0 Hyperosmolality and hypernatremia; E87.20 Acidosis, unspecified; I13.0 Hypertensive heart and chronic kidney disease with heart failure and stage 1 through stage 4 chronic kidney disease, or unspecified chronic kidney disease; N17.9 Acute kidney failure, unspecified; D62 Acute posthemorrhagic anemia; S72.141A Displaced intertrochanteric fracture of right femur, initial encounter for closed fracture; M79.7 Fibromyalgia; E11.649 Type 2 diabetes mellitus with hypoglycemia without coma; E03.9 Hypothyroidism, unspecified; K75.81 Nonalcoholic steatohepatitis (NASH); K74.60 Unspecified cirrhosis of liver; E11.40 Type 2 diabetes mellitus with diabetic neuropathy, unspecified; N18.30 Chronic kidney disease, stage 3 unspecified; E11.22 Type 2 diabetes mellitus with diabetic chronic kidney disease; E11.65 Type 2 diabetes mellitus with hyperglycemia; K21.9 Gastro-esophageal reflux disease without esophagitis; E78.5 Hyperlipidemia, unspecified; E87.5 Hyperkalemia; R41.0 Disorientation, unspecified; R33.9 Retention of urine, unspecified; I25.10 Atherosclerotic heart disease of native coronary artery without angina pectoris; E87.6 Hypokalemia; Z95.5 Presence of coronary angioplasty implant and graft; Z98.41 Cataract extraction status, right eye; Z98.42 Cataract extraction status, left eye; Z90.49 Acquired absence of other specified parts of digestive tract; Z87.891 Personal history of nicotine dependence; Z79.82 Long term (current) use of aspirin; Z79.890 Hormone replacement therapy; Z79.4 Long term (current) use of insulin; Z79.899 Other long term (current) drug therapy; Z88.1 Allergy status to other antibiotic agents; K59.00 Constipation, unspecified; W18.09XA Striking against other object with subsequent fall, initial encounter; Y92.231 Patient bathroom in hospital as the place of occurrence of the external cause; Y93.89 Activity, other specified; Y99.8 Other external cause status

== ENCOUNTER → 2022-12-12 | Outpatient (CLI) | payer MEDICARE ==
[~2022-12-12] MED LIST changes: +ALDA25TA2 PO; -CEFD300C41 PO; +CEFD300C42 PO; -CURRENT HEIGHT AND WEIGHT NEEDED ON PATIENT XX SCH; +HUMA100I3 SC; +LISI2.5T9 PO; +MAGN400T2 PO; +XIFA550T PO
== END ==
LOC: M SOG 08:48
PROVIDERS: ATTEND Orthopaedic Surgery
DX: S72.141A Displaced intertrochanteric fracture of right femur, initial encounter for closed fracture (principal); W18.30XA Fall on same level, unspecified, initial encounter; Y92.009 Unspecified place in unspecified non-institutional (private) residence as the place of occurrence of the external cause

== ENCOUNTER 2023-01-02 12:55 | Observation (INO) | payer MEDICARE ==
[~2023-01-02] VITALS: Ht 165.1 cm; Wt 73.0 kg
[2023-01-02] MEDS ORDERED: ANEXSIA, NORCO 7.5MG/325MG TABLET(HYDROCODONE/APAP) PO ONE (13:15)
[2023-01-02 13:52] LABS: BASO # 0.1 10^3/uL (0.0-0.2); BASO % 0.7 % (0.0-1.0); EOS # 0.1 10^3/uL (0.0-0.5); EOS % 0.5 % (0.0-3.0); HEMATOCRIT 29.1 % (36.0-47.0); LYMPH # 1.3 10^3/uL (1.5-5.0); LYMPH % 12.4 % (24.0-44.0); MEAN CORPUSCULAR HEMOGLOBIN 25.6 pg (27.0-33.0); MEAN CORPUSCULAR HGB CONC 30.9 g/dl (32.0-36.5); MEAN CORPUSCULAR VOLUME 82.7 fl (80.0-96.0); MONO % 9.1 % (2.0-8.0); NEUTROPHILS % 76.6 % (36.0-66.0); PLATELET COUNT, AUTOMATED 344 10^3/uL (150-450); RED BLOOD COUNT 3.52 10^6/uL (4.00-5.40); WHITE BLOOD COUNT 10.4 10^3/uL (4.0-10.0)
[2023-01-02 14:09] LABS: BLOOD UREA NITROGEN 33 MG/DL (9-23); CALCIUM LEVEL 9.2 MG/DL (8.3-10.6); CARBON DIOXIDE LEVEL 21 MMOL/L (20-31); CHLORIDE LEVEL 107 MMOL/L (98-107); CREATININE FOR GFR 0.93 MG/DL (0.55-1.30); GLOMERULAR FILTRATION RATE > 60.0 (>39); GLUCOSE, FASTING 87 MG/DL (74-106); SODIUM LEVEL 141 MMOL/L (136-145)
[2023-01-02 14:18] LABS: RSV AMPLIFICATION NEGATIVE (NEGATIVE)
[2023-01-02] MEDS ORDERED: HYDR-3716 PO (14:36)
[2023-01-02 14:57] LABS: ALBUMIN 3.7 G/DL (3.2-5.2); ALKALINE PHOSPHATASE 176 U/L (46-116); ALT/SGPT 34 U/L (7.0-40); AST/SGOT 51 U/L (<34); BILIRUBIN,DIRECT 0.3 MG/DL (<0.4); BILIRUBIN,TOTAL 0.6 MG/DL (0.3-1.2); TOTAL PROTEIN 7.2 G/DL (5.7-8.2)
[2023-01-02] MEDS ORDERED: MED REC IN PROGRESS XX SCH (16:25)
[2023-01-02] MEDS ORDERED: ACETAMINOPHEN TAB 650MG DOSE (2X325MG) PO PRN (16:50)
[2023-01-02] MEDS ORDERED: MOM 30ML SUSPENSION UDC PO PRN (16:50)
[2023-01-02] MEDS ORDERED: MAALOX 30 ML SUSP *UDC PO PRN (16:50)
[2023-01-02] MEDS ORDERED: DEXTROSE 50% 50ML SYRINGE IV PRN (16:55)
[2023-01-02] MEDS ORDERED: GLUCAGON INJ 1MG VIAL SC PRN (16:55)
[2023-01-02] MEDS ORDERED: GLUCOSE 4GM CHEW TABLET PO PRN (16:55)
[2023-01-02] MEDS: INSULIN LISPRO (NovoLOG) PER UNIT SC SCH ×2 (17:28→21:00)
[2023-01-02] MEDS ORDERED: TRAM50TA2 PO (18:12)
[2023-01-02] MEDS ORDERED: med rec comment (18:14)
[2023-01-02] MEDS ORDERED: HOME MED LIST COMPLETE! XX SCH (18:25)
[2023-01-02 22:25] VITALS: BP 123/73; TEMP 99; O2SAT 100
[2023-01-02] MEDS: LEVEMIR (INSULIN DETEMIR) 1 UNITS/0.01ML SC SCH (23:03)
[2023-01-02] MEDS: MAGNESIUM OXIDE 400MG TAB (MAG-OX) PO SCH (23:04)
[2023-01-02] MEDS: rifAXIMin 550 MG TAB (XIFAXAN) PO SCH (23:04)
[2023-01-02] MEDS: **hydrALAZINE** 50 MG TAB PO SCH (23:05)
[2023-01-02] MEDS: ANEXSIA, NORCO 7.5MG/325MG TABLET(HYDROCODONE/APAP) PO SCH (23:05)
[2023-01-02] MEDS: ATORVASTATIN 20 MG TAB PO SCH (23:06)
[2023-01-02] MEDS: LACTULOSE 20GM/30ML SYRUP UDC PO SCH (23:06)
[2023-01-02] MEDS: ISOSORBIDE DIN. (ISORDIL) 30 MG TAB PO SCH (23:24)
[2023-01-03] MEDS: LEVOTHYROXINE 112MCG TABLET (0.112MG) PO SCH (05:58)
[2023-01-03] MEDS: LACTULOSE 20GM/30ML SYRUP UDC PO SCH ×3 (05:58→22:00)
[2023-01-03 07:04] LABS: BASO # 0.1 10^3/uL (0.0-0.2); BASO % 0.7 % (0.0-1.0); EOS % 0.6 % (0.0-3.0); HEMATOCRIT 28.6 % (36.0-47.0); HEMOGLOBIN 8.5 g/dl (12.0-15.5); LYMPH # 0.7 10^3/uL (1.5-5.0); LYMPH % 9.2 % (24.0-44.0); MEAN CORPUSCULAR HEMOGLOBIN 25.1 pg (27.0-33.0); MEAN CORPUSCULAR HGB CONC 29.7 g/dl (32.0-36.5); MEAN CORPUSCULAR VOLUME 84.6 fl (80.0-96.0); MONO # 0.6 10^3/uL (0.0-0.8); MONO % 8.8 % (2.0-8.0); NEUTROPHILS # 5.8 10^3/uL (1.5-8.5); NEUTROPHILS % 80.3 % (36.0-66.0); PLATELET COUNT, AUTOMATED 263 10^3/uL (150-450); RED BLOOD COUNT 3.38 10^6/uL (4.00-5.40); WHITE BLOOD COUNT 7.3 10^3/uL (4.0-10.0)
[2023-01-03 07:22] LABS: BLOOD UREA NITROGEN 32 MG/DL (9-23); CALCIUM LEVEL 8.7 MG/DL (8.3-10.6); CARBON DIOXIDE LEVEL 22 MMOL/L (20-31); CHLORIDE LEVEL 108 MMOL/L (98-107); CREATININE FOR GFR 0.81 MG/DL (0.55-1.30); GLOMERULAR FILTRATION RATE > 60.0 (>39); GLUCOSE, FASTING 83 MG/DL (74-106); MAGNESIUM LEVEL 2.3 MG/DL (1.8-2.4); POTASSIUM SERUM 3.8 MMOL/L (3.5-5.1); SODIUM LEVEL 140 MMOL/L (136-145)
[2023-01-03] MEDS: INSULIN LISPRO (NovoLOG) PER UNIT SC SCH ×4 (08:55→22:01)
[2023-01-03] MEDS: ANEXSIA, NORCO 7.5MG/325MG TABLET(HYDROCODONE/APAP) PO SCH ×2 (08:57→22:00)
[2023-01-03] MEDS: DAPAGLIFLOZIN PROPANEDIOL 10MG TABLET (FARXIGA) PO SCH (08:58)
[2023-01-03] MEDS: LISINOPRIL *2.5 MG* TAB PO SCH (08:58)
[2023-01-03] MEDS: PANTOPRAZOLE 40MG TAB (PROTONIX) PO SCH (08:58)
[2023-01-03] MEDS: LEVEMIR (INSULIN DETEMIR) 1 UNITS/0.01ML SC SCH ×2 (08:58→22:01)
[2023-01-03] MEDS: MAGNESIUM OXIDE 400MG TAB (MAG-OX) PO SCH ×2 (08:59→22:00)
[2023-01-03] MEDS: SPIRONOLACTONE 25 MG TAB PO SCH ×2 (08:59→17:00)
[2023-01-03] MEDS: rifAXIMin 550 MG TAB (XIFAXAN) PO SCH ×2 (08:59→22:00)
[2023-01-03] MEDS: ISOSORBIDE DIN. (ISORDIL) 30 MG TAB PO SCH ×3 (08:59→22:04)
[2023-01-03] MEDS: **hydrALAZINE** 50 MG TAB PO SCH ×2 (09:00→22:04)
[2023-01-03] MEDS ORDERED: LEVEMIR (INSULIN DETEMIR) 1 UNITS/0.01ML SC SCH (09:00)
[2023-01-03] MEDS: ENOXAPARIN 30MG/0.3ML SYRINGE (J1650 PER 10MG) SC SCH (09:02)
[2023-01-03] MEDS: LIDOCAINE 5% (LIDODERM) PATCH TD SCH (09:02)
[2023-01-03 09:35] VITALS: BP 126/58; TEMP 97.7
[2023-01-03] MEDS: TORSEMIDE 20 MG TAB PO SCH (10:34)
[2023-01-03] MEDS: ASPIRIN 81MG ENTERIC TABLET PO SCH (10:35)
[2023-01-03 14:00] VITALS: BP 120/66; TEMP 98; O2SAT 96
[2023-01-03 19:59] VITALS: BP 135/58; TEMP 98.2; O2SAT 99
[2023-01-03] MEDS ORDERED: LEVEMIR (INSULIN DETEMIR) 1 UNITS/0.01ML SC ONE (21:45)
[2023-01-03] MEDS: ATORVASTATIN 20 MG TAB PO SCH (22:00)
[2023-01-04 06:10] VITALS: BP 131/66; TEMP 98.1; O2SAT 99
[2023-01-04] MEDS: LACTULOSE 20GM/30ML SYRUP UDC PO SCH ×3 (06:11→21:20)
[2023-01-04] MEDS: LEVOTHYROXINE 112MCG TABLET (0.112MG) PO SCH (06:11)
[2023-01-04 06:23] LABS: BASO # 0.1 10^3/uL (0.0-0.2); BASO % 0.9 % (0.0-1.0); EOS # 0.5 10^3/uL (0.0-0.5); EOS % 6.6 % (0.0-3.0); HEMATOCRIT 26.7 % (36.0-47.0); HEMOGLOBIN 8.1 g/dl (12.0-15.5); LYMPH # 2.2 10^3/uL (1.5-5.0); LYMPH % 28.3 % (24.0-44.0); MEAN CORPUSCULAR HEMOGLOBIN 25.1 pg (27.0-33.0); MEAN CORPUSCULAR HGB CONC 30.3 g/dl (32.0-36.5); MEAN CORPUSCULAR VOLUME 82.7 fl (80.0-96.0); MONO # 0.9 10^3/uL (0.0-0.8); MONO % 11.4 % (2.0-8.0); NEUTROPHILS % 52.7 % (36.0-66.0); PLATELET COUNT, AUTOMATED 269 10^3/uL (150-450); RED BLOOD COUNT 3.23 10^6/uL (4.00-5.40); WHITE BLOOD COUNT 7.6 10^3/uL (4.0-10.0)
[2023-01-04 06:55] LABS: BLOOD UREA NITROGEN 33 MG/DL (9-23); CALCIUM LEVEL 8.1 MG/DL (8.3-10.6); CARBON DIOXIDE LEVEL 22 MMOL/L (20-31); CHLORIDE LEVEL 106 MMOL/L (98-107); CREATININE FOR GFR 0.88 MG/DL (0.55-1.30); GLOMERULAR FILTRATION RATE > 60.0 (>39); GLUCOSE, FASTING 66 MG/DL (74-106); MAGNESIUM LEVEL 2.4 MG/DL (1.8-2.4); POTASSIUM SERUM 4.3 MMOL/L (3.5-5.1); SODIUM LEVEL 138 MMOL/L (136-145)
[2023-01-04] MEDS: INSULIN LISPRO (NovoLOG) PER UNIT SC SCH ×4 (07:30→21:00)
[2023-01-04] MEDS: **hydrALAZINE** 50 MG TAB PO SCH ×2 (08:45→21:20)
[2023-01-04] MEDS: ENOXAPARIN 30MG/0.3ML SYRINGE (J1650 PER 10MG) SC SCH (08:55)
[2023-01-04] MEDS: TORSEMIDE 20 MG TAB PO SCH (08:55)
[2023-01-04] MEDS: MAGNESIUM OXIDE 400MG TAB (MAG-OX) PO SCH ×2 (08:55→21:20)
[2023-01-04] MEDS: rifAXIMin 550 MG TAB (XIFAXAN) PO SCH ×2 (08:56→21:20)
[2023-01-04] MEDS: LISINOPRIL *2.5 MG* TAB PO SCH (08:56)
[2023-01-04] MEDS: ASPIRIN 81MG ENTERIC TABLET PO SCH (08:56)
[2023-01-04] MEDS: SPIRONOLACTONE 25 MG TAB PO SCH ×2 (08:56→15:40)
[2023-01-04] MEDS: ISOSORBIDE DIN. (ISORDIL) 30 MG TAB PO SCH ×3 (08:56→21:21)
[2023-01-04] MEDS: PANTOPRAZOLE 40MG TAB (PROTONIX) PO SCH (08:56)
[2023-01-04] MEDS: LEVEMIR (INSULIN DETEMIR) 1 UNITS/0.01ML SC SCH ×2 (09:00→21:20)
[2023-01-04] MEDS: ANEXSIA, NORCO 7.5MG/325MG TABLET(HYDROCODONE/APAP) PO SCH ×3 (09:00→23:55)
[2023-01-04] MEDS: DAPAGLIFLOZIN PROPANEDIOL 10MG TABLET (FARXIGA) PO SCH (09:00)
[2023-01-04] MEDS: LIDOCAINE 5% (LIDODERM) PATCH TD SCH (09:02)
[2023-01-04 14:00] VITALS: BP 117/60; TEMP 98.2; O2SAT 100
[2023-01-04] MEDS: ATORVASTATIN 20 MG TAB PO SCH (21:21)
[2023-01-04 22:00] VITALS: BP 141/58; TEMP 98.2; O2SAT 97
[2023-01-05] MEDS: LACTULOSE 20GM/30ML SYRUP UDC PO SCH ×3 (05:31→21:36)
[2023-01-05] MEDS: LEVOTHYROXINE 112MCG TABLET (0.112MG) PO SCH (05:31)
[2023-01-05 06:00] VITALS: BP 150/60; TEMP 98.1; O2SAT 99
[2023-01-05 06:20] LABS: BASO # 0.1 10^3/uL (0.0-0.2); BASO % 1.1 % (0.0-1.0); EOS # 0.5 10^3/uL (0.0-0.5); EOS % 7.8 % (0.0-3.0); HEMATOCRIT 23.3 % (36.0-47.0); HEMOGLOBIN 7.2 g/dl (12.0-15.5); LYMPH # 2.1 10^3/uL (1.5-5.0); MEAN CORPUSCULAR HEMOGLOBIN 25.6 pg (27.0-33.0); MEAN CORPUSCULAR HGB CONC 30.9 g/dl (32.0-36.5); MEAN CORPUSCULAR VOLUME 82.9 fl (80.0-96.0); MONO # 0.9 10^3/uL (0.0-0.8); MONO % 14.6 % (2.0-8.0); NEUTROPHILS # 2.9 10^3/uL (1.5-8.5); NEUTROPHILS % 44.3 % (36.0-66.0); PLATELET COUNT, AUTOMATED 205 10^3/uL (150-450); RED BLOOD COUNT 2.81 10^6/uL (4.00-5.40); WHITE BLOOD COUNT 6.4 10^3/uL (4.0-10.0)
[2023-01-05 06:44] LABS: BLOOD UREA NITROGEN 36 MG/DL (9-23); CALCIUM LEVEL 8.4 MG/DL (8.3-10.6); CARBON DIOXIDE LEVEL 20 MMOL/L (20-31); CHLORIDE LEVEL 106 MMOL/L (98-107); CREATININE FOR GFR 0.71 MG/DL (0.55-1.30); GLOMERULAR FILTRATION RATE > 60.0 (>39); GLUCOSE, FASTING 163 MG/DL (74-106); MAGNESIUM LEVEL 2.1 MG/DL (1.8-2.4); POTASSIUM SERUM 3.9 MMOL/L (3.5-5.1); SODIUM LEVEL 136 MMOL/L (136-145)
[2023-01-05] MEDS: ENOXAPARIN 30MG/0.3ML SYRINGE (J1650 PER 10MG) SC SCH (09:26)
[2023-01-05] MEDS: LISINOPRIL *2.5 MG* TAB PO SCH (09:27)
[2023-01-05] MEDS: ISOSORBIDE DIN. (ISORDIL) 30 MG TAB PO SCH ×3 (09:27→21:35)
[2023-01-05] MEDS: ANEXSIA, NORCO 7.5MG/325MG TABLET(HYDROCODONE/APAP) PO SCH (09:27)
[2023-01-05] MEDS: DAPAGLIFLOZIN PROPANEDIOL 10MG TABLET (FARXIGA) PO SCH (09:27)
[2023-01-05] MEDS: rifAXIMin 550 MG TAB (XIFAXAN) PO SCH ×2 (09:27→21:34)
[2023-01-05] MEDS: **hydrALAZINE** 50 MG TAB PO SCH ×2 (09:28→21:35)
[2023-01-05] MEDS: SPIRONOLACTONE 25 MG TAB PO SCH ×2 (09:28→17:24)
[2023-01-05] MEDS: MAGNESIUM OXIDE 400MG TAB (MAG-OX) PO SCH ×2 (09:28→21:34)
[2023-01-05] MEDS: TORSEMIDE 20 MG TAB PO SCH (09:28)
[2023-01-05] MEDS: ASPIRIN 81MG ENTERIC TABLET PO SCH (09:29)
[2023-01-05] MEDS: PANTOPRAZOLE 40MG TAB (PROTONIX) PO SCH (09:29)
[2023-01-05] MEDS: INSULIN LISPRO (NovoLOG) PER UNIT SC SCH ×4 (09:30→21:00)
[2023-01-05] MEDS: LEVEMIR (INSULIN DETEMIR) 1 UNITS/0.01ML SC SCH ×2 (09:31→21:35)
[2023-01-05] MEDS: LIDOCAINE 5% (LIDODERM) PATCH TD SCH (09:31)
[2023-01-05 14:00] VITALS: BP 132/57; TEMP 98.2; O2SAT 98
[2023-01-05 21:16] VITALS: BP 134/82; TEMP 97.9; O2SAT 95
[2023-01-05] MEDS: ATORVASTATIN 20 MG TAB PO SCH (21:34)
[2023-01-05] MEDS: ACETAMINOPHEN TAB 650MG DOSE (2X325MG) PO SCH (21:34)
[2023-01-06] MEDS: LACTULOSE 20GM/30ML SYRUP UDC PO SCH ×3 (05:37→22:00)
[2023-01-06] MEDS: ACETAMINOPHEN TAB 650MG DOSE (2X325MG) PO SCH ×4 (05:37→16:43)
[2023-01-06] MEDS: LEVOTHYROXINE 112MCG TABLET (0.112MG) PO SCH (05:37)
[2023-01-06 06:00] VITALS: BP 140/55; TEMP 98.1; O2SAT 97
[2023-01-06 07:15] LABS: HEMOGLOBIN 8.1 g/dl (12.0-15.5); MEAN CORPUSCULAR HEMOGLOBIN 24.6 pg (27.0-33.0); MEAN CORPUSCULAR VOLUME 82.1 fl (80.0-96.0); PLATELET COUNT, AUTOMATED 249 10^3/uL (150-450); RED BLOOD COUNT 3.29 10^6/uL (4.00-5.40); WHITE BLOOD COUNT 5.6 10^3/uL (4.0-10.0)
[2023-01-06] MEDS: LEVEMIR (INSULIN DETEMIR) 1 UNITS/0.01ML SC SCH ×2 (08:29→20:33)
[2023-01-06] MEDS: LIDOCAINE 5% (LIDODERM) PATCH TD SCH (08:30)
[2023-01-06] MEDS: INSULIN LISPRO (NovoLOG) PER UNIT SC SCH ×4 (08:30→20:34)
[2023-01-06] MEDS: PANTOPRAZOLE 40MG TAB (PROTONIX) PO SCH (08:31)
[2023-01-06] MEDS: DAPAGLIFLOZIN PROPANEDIOL 10MG TABLET (FARXIGA) PO SCH (08:31)
[2023-01-06] MEDS: ASPIRIN 81MG ENTERIC TABLET PO SCH (08:31)
[2023-01-06] MEDS: TORSEMIDE 20 MG TAB PO SCH (08:31)
[2023-01-06] MEDS: rifAXIMin 550 MG TAB (XIFAXAN) PO SCH ×2 (08:31→20:34)
[2023-01-06] MEDS: SPIRONOLACTONE 25 MG TAB PO SCH ×2 (08:32→16:43)
[2023-01-06] MEDS: MAGNESIUM OXIDE 400MG TAB (MAG-OX) PO SCH ×2 (08:32→20:34)
[2023-01-06] MEDS: **hydrALAZINE** 50 MG TAB PO SCH ×2 (08:34→20:35)
[2023-01-06] MEDS: ISOSORBIDE DIN. (ISORDIL) 30 MG TAB PO SCH ×3 (08:35→20:34)
[2023-01-06] MEDS: LISINOPRIL *2.5 MG* TAB PO SCH (08:36)
[2023-01-06 14:00] VITALS: BP 124/88; TEMP 98.6; O2SAT 98
[2023-01-06] MEDS: ATORVASTATIN 20 MG TAB PO SCH (20:35)
[2023-01-07] MEDS: ACETAMINOPHEN TAB 650MG DOSE (2X325MG) PO SCH ×4 (00:33→17:06)
[2023-01-07 06:00] VITALS: BP 156/66; TEMP 98.2; O2SAT 97
[2023-01-07] MEDS: LACTULOSE 20GM/30ML SYRUP UDC PO SCH ×3 (06:17→21:13)
[2023-01-07] MEDS: LEVOTHYROXINE 112MCG TABLET (0.112MG) PO SCH (06:18)
[2023-01-07] MEDS: LIDOCAINE 5% (LIDODERM) PATCH TD SCH (09:15)
[2023-01-07] MEDS: LEVEMIR (INSULIN DETEMIR) 1 UNITS/0.01ML SC SCH ×2 (09:16→21:15)
[2023-01-07] MEDS: INSULIN LISPRO (NovoLOG) PER UNIT SC SCH ×4 (09:16→21:15)
[2023-01-07] MEDS: rifAXIMin 550 MG TAB (XIFAXAN) PO SCH ×2 (09:17→21:13)
[2023-01-07] MEDS: PANTOPRAZOLE 40MG TAB (PROTONIX) PO SCH (09:17)
[2023-01-07] MEDS: **hydrALAZINE** 50 MG TAB PO SCH ×2 (09:17→21:14)
[2023-01-07] MEDS: SPIRONOLACTONE 25 MG TAB PO SCH ×2 (09:18→17:04)
[2023-01-07] MEDS: LISINOPRIL *2.5 MG* TAB PO SCH (09:18)
[2023-01-07] MEDS: TORSEMIDE 20 MG TAB PO SCH (09:18)
[2023-01-07] MEDS: ASPIRIN 81MG ENTERIC TABLET PO SCH (09:19)
[2023-01-07] MEDS: MAGNESIUM OXIDE 400MG TAB (MAG-OX) PO SCH ×2 (09:19→21:13)
[2023-01-07] MEDS: DAPAGLIFLOZIN PROPANEDIOL 10MG TABLET (FARXIGA) PO SCH (09:19)
[2023-01-07] MEDS: ISOSORBIDE DIN. (ISORDIL) 30 MG TAB PO SCH ×3 (09:19→21:15)
[2023-01-07] MEDS: ATORVASTATIN 20 MG TAB PO SCH (21:14)
[2023-01-08] MEDS: ACETAMINOPHEN TAB 650MG DOSE (2X325MG) PO SCH ×4 (00:09→17:26)
[2023-01-08 06:05] VITALS: BP 150/64; TEMP 98.2; O2SAT 98
[2023-01-08] MEDS: LEVOTHYROXINE 112MCG TABLET (0.112MG) PO SCH (06:47)
[2023-01-08] MEDS: LACTULOSE 20GM/30ML SYRUP UDC PO SCH ×3 (06:47→21:50)
[2023-01-08] MEDS: LEVEMIR (INSULIN DETEMIR) 1 UNITS/0.01ML SC SCH ×2 (09:39→21:51)
[2023-01-08] MEDS: INSULIN LISPRO (NovoLOG) PER UNIT SC SCH ×4 (09:40→21:51)
[2023-01-08] MEDS: rifAXIMin 550 MG TAB (XIFAXAN) PO SCH ×2 (09:40→21:52)
[2023-01-08] MEDS: LIDOCAINE 5% (LIDODERM) PATCH TD SCH (09:40)
[2023-01-08] MEDS: TORSEMIDE 20 MG TAB PO SCH (09:41)
[2023-01-08] MEDS: SPIRONOLACTONE 25 MG TAB PO SCH ×2 (09:42→16:50)
[2023-01-08] MEDS: ASPIRIN 81MG ENTERIC TABLET PO SCH (09:42)
[2023-01-08] MEDS: MAGNESIUM OXIDE 400MG TAB (MAG-OX) PO SCH ×2 (09:43→21:52)
[2023-01-08] MEDS: DAPAGLIFLOZIN PROPANEDIOL 10MG TABLET (FARXIGA) PO SCH (09:43)
[2023-01-08] MEDS: PANTOPRAZOLE 40MG TAB (PROTONIX) PO SCH (09:43)
[2023-01-08] MEDS: ISOSORBIDE DIN. (ISORDIL) 30 MG TAB PO SCH ×3 (09:49→21:52)
[2023-01-08] MEDS: **hydrALAZINE** 50 MG TAB PO SCH ×2 (09:49→21:00)
[2023-01-08] MEDS: LISINOPRIL *2.5 MG* TAB PO SCH (09:50)
[2023-01-08] MEDS: ATORVASTATIN 20 MG TAB PO SCH (21:52)
[2023-01-08] MEDS: ANEXSIA, NORCO 7.5MG/325MG TABLET(HYDROCODONE/APAP) PO PRN (21:56)
[2023-01-09] MEDS: ACETAMINOPHEN TAB 650MG DOSE (2X325MG) PO SCH ×5 (01:34→17:35)
[2023-01-09] MEDS ORDERED: RAMELTEON 8 MG TAB (ROZEREM) PO ONE (03:00)
[2023-01-09] MEDS: LEVOTHYROXINE 112MCG TABLET (0.112MG) PO SCH (05:49)
[2023-01-09] MEDS: LACTULOSE 20GM/30ML SYRUP UDC PO SCH ×3 (05:49→20:13)
[2023-01-09 06:44] VITALS: BP 143/55; TEMP 98.1; O2SAT 96
[2023-01-09] MEDS: MAGNESIUM OXIDE 400MG TAB (MAG-OX) PO SCH ×2 (08:40→20:14)
[2023-01-09] MEDS: LIDOCAINE 5% (LIDODERM) PATCH TD SCH (08:40)
[2023-01-09] MEDS: PANTOPRAZOLE 40MG TAB (PROTONIX) PO SCH (08:40)
[2023-01-09] MEDS: rifAXIMin 550 MG TAB (XIFAXAN) PO SCH ×2 (08:41→20:14)
[2023-01-09] MEDS: DAPAGLIFLOZIN PROPANEDIOL 10MG TABLET (FARXIGA) PO SCH (08:41)
[2023-01-09] MEDS: SPIRONOLACTONE 25 MG TAB PO SCH ×2 (08:41→16:04)
[2023-01-09] MEDS: ASPIRIN 81MG ENTERIC TABLET PO SCH (08:41)
[2023-01-09] MEDS: TORSEMIDE 20 MG TAB PO SCH (08:41)
[2023-01-09] MEDS: LISINOPRIL *2.5 MG* TAB PO SCH (08:45)
[2023-01-09] MEDS: **hydrALAZINE** 50 MG TAB PO SCH ×2 (08:45→20:14)
[2023-01-09] MEDS: LEVEMIR (INSULIN DETEMIR) 1 UNITS/0.01ML SC SCH ×2 (08:46→20:15)
[2023-01-09] MEDS: INSULIN LISPRO (NovoLOG) PER UNIT SC SCH ×4 (08:47→20:14)
[2023-01-09] MEDS: ISOSORBIDE DIN. (ISORDIL) 30 MG TAB PO SCH ×3 (08:47→20:14)
[2023-01-09] MEDS: ANEXSIA, NORCO 7.5MG/325MG TABLET(HYDROCODONE/APAP) PO PRN (20:13)
[2023-01-09] MEDS: ATORVASTATIN 20 MG TAB PO SCH (20:14)
[2023-01-10 06:37] VITALS: BP 138/54; TEMP 98.4; O2SAT 96
[2023-01-10] MEDS: ACETAMINOPHEN TAB 650MG DOSE (2X325MG) PO SCH ×4 (06:44→17:46)
[2023-01-10] MEDS: LEVOTHYROXINE 112MCG TABLET (0.112MG) PO SCH (06:44)
[2023-01-10] MEDS: LACTULOSE 20GM/30ML SYRUP UDC PO SCH ×3 (06:44→20:33)
[2023-01-10] MEDS: LEVEMIR (INSULIN DETEMIR) 1 UNITS/0.01ML SC SCH ×2 (09:00→20:32)
[2023-01-10] MEDS: INSULIN LISPRO (NovoLOG) PER UNIT SC SCH ×4 (09:01→20:33)
[2023-01-10] MEDS: LIDOCAINE 5% (LIDODERM) PATCH TD SCH (09:01)
[2023-01-10] MEDS: ASPIRIN 81MG ENTERIC TABLET PO SCH (09:02)
[2023-01-10] MEDS: MAGNESIUM OXIDE 400MG TAB (MAG-OX) PO SCH ×2 (09:02→20:31)
[2023-01-10] MEDS: PANTOPRAZOLE 40MG TAB (PROTONIX) PO SCH (09:02)
[2023-01-10] MEDS: SPIRONOLACTONE 25 MG TAB PO SCH ×2 (09:02→16:26)
[2023-01-10] MEDS: rifAXIMin 550 MG TAB (XIFAXAN) PO SCH ×2 (09:03→20:32)
[2023-01-10] MEDS: TORSEMIDE 20 MG TAB PO SCH (09:04)
[2023-01-10] MEDS: DAPAGLIFLOZIN PROPANEDIOL 10MG TABLET (FARXIGA) PO SCH (09:04)
[2023-01-10] MEDS: **hydrALAZINE** 50 MG TAB PO SCH ×2 (09:07→20:31)
[2023-01-10] MEDS: ISOSORBIDE DIN. (ISORDIL) 30 MG TAB PO SCH ×3 (09:07→20:32)
[2023-01-10] MEDS: LISINOPRIL *2.5 MG* TAB PO SCH (09:20)
[2023-01-10] MEDS: ANEXSIA, NORCO 7.5MG/325MG TABLET(HYDROCODONE/APAP) PO PRN (13:54)
[2023-01-10 15:16] LABS: HEMATOCRIT 22.7 % (36.0-47.0); HEMOGLOBIN 7.1 g/dl (12.0-15.5); MEAN CORPUSCULAR HEMOGLOBIN 25.2 pg (27.0-33.0); MEAN CORPUSCULAR HGB CONC 31.3 g/dl (32.0-36.5); MEAN CORPUSCULAR VOLUME 80.5 fl (80.0-96.0); PLATELET COUNT, AUTOMATED 209 10^3/uL (150-450); RED BLOOD COUNT 2.82 10^6/uL (4.00-5.40); WHITE BLOOD COUNT 5.6 10^3/uL (4.0-10.0)
[2023-01-10 15:51] LABS: ALBUMIN 3.1 G/DL (3.2-5.2); ALKALINE PHOSPHATASE 205 U/L (46-116); ALT/SGPT 25 U/L (7.0-40); AST/SGOT 23 U/L (<34); BILIRUBIN,TOTAL 0.4 MG/DL (0.3-1.2); BLOOD UREA NITROGEN 49 MG/DL (9-23); CALCIUM LEVEL 8.8 MG/DL (8.3-10.6); CARBON DIOXIDE LEVEL 22 MMOL/L (20-31); CHLORIDE LEVEL 107 MMOL/L (98-107); CREATININE FOR GFR 0.93 MG/DL (0.55-1.30); GLOMERULAR FILTRATION RATE > 60.0 (>39); GLUCOSE, FASTING 261 MG/DL (74-106); POTASSIUM SERUM 4.1 MMOL/L (3.5-5.1); SODIUM LEVEL 138 MMOL/L (136-145); TOTAL PROTEIN 6.3 G/DL (5.7-8.2)
[2023-01-10] MEDS: ATORVASTATIN 20 MG TAB PO SCH (20:32)
[2023-01-11] MEDS: ANEXSIA, NORCO 7.5MG/325MG TABLET(HYDROCODONE/APAP) PO PRN ×2 (01:59→20:53)
[2023-01-11] MEDS: LEVOTHYROXINE 112MCG TABLET (0.112MG) PO SCH (04:51)
[2023-01-11] MEDS: LACTULOSE 20GM/30ML SYRUP UDC PO SCH ×3 (04:51→20:54)
[2023-01-11] MEDS: ACETAMINOPHEN TAB 650MG DOSE (2X325MG) PO SCH ×4 (04:51→18:12)
[2023-01-11 06:16] LABS: HEMATOCRIT 23.1 % (36.0-47.0); HEMOGLOBIN 7.2 g/dl (12.0-15.5); MEAN CORPUSCULAR HEMOGLOBIN 24.7 pg (27.0-33.0); MEAN CORPUSCULAR HGB CONC 31.2 g/dl (32.0-36.5); MEAN CORPUSCULAR VOLUME 79.4 fl (80.0-96.0); PLATELET COUNT, AUTOMATED 208 10^3/uL (150-450); RED BLOOD COUNT 2.91 10^6/uL (4.00-5.40); WHITE BLOOD COUNT 4.9 10^3/uL (4.0-10.0)
[2023-01-11 06:18] VITALS: BP 132/57; TEMP 98.6; O2SAT 96
[2023-01-11 07:49] LABS: PERCENT SATURATION 3.3 % (13.2-45.0)
[2023-01-11 07:52] LABS: FERRITIN 16.7 NG/ML (7.3-270.7); FOLATE 13.09 NG/ML (>5.4)
[2023-01-11] MEDS: LEVEMIR (INSULIN DETEMIR) 1 UNITS/0.01ML SC SCH ×2 (08:51→20:53)
[2023-01-11] MEDS: INSULIN LISPRO (NovoLOG) PER UNIT SC SCH ×4 (08:52→20:54)
[2023-01-11] MEDS: MAGNESIUM OXIDE 400MG TAB (MAG-OX) PO SCH ×2 (08:53→20:53)
[2023-01-11] MEDS: ASPIRIN 81MG ENTERIC TABLET PO SCH (08:53)
[2023-01-11] MEDS: TORSEMIDE 20 MG TAB PO SCH (08:53)
[2023-01-11] MEDS: **hydrALAZINE** 50 MG TAB PO SCH ×2 (08:53→20:53)
[2023-01-11] MEDS: rifAXIMin 550 MG TAB (XIFAXAN) PO SCH ×2 (08:53→20:52)
[2023-01-11] MEDS: ISOSORBIDE DIN. (ISORDIL) 30 MG TAB PO SCH ×3 (08:53→20:52)
[2023-01-11] MEDS: SPIRONOLACTONE 25 MG TAB PO SCH ×2 (08:54→16:09)
[2023-01-11] MEDS: LISINOPRIL *2.5 MG* TAB PO SCH (08:54)
[2023-01-11] MEDS: DAPAGLIFLOZIN PROPANEDIOL 10MG TABLET (FARXIGA) PO SCH (08:54)
[2023-01-11] MEDS: PANTOPRAZOLE 40MG TAB (PROTONIX) PO SCH (08:54)
[2023-01-11] MEDS: LIDOCAINE 5% (LIDODERM) PATCH TD SCH (08:56)
[2023-01-11] MEDS: ATORVASTATIN 20 MG TAB PO SCH (20:52)
[2023-01-12 06:10] VITALS: BP 141/49; TEMP 98.4; O2SAT 96
[2023-01-12] MEDS: LEVOTHYROXINE 112MCG TABLET (0.112MG) PO SCH (06:13)
[2023-01-12] MEDS: ACETAMINOPHEN TAB 650MG DOSE (2X325MG) PO SCH ×5 (06:13→22:53)
[2023-01-12] MEDS: LACTULOSE 20GM/30ML SYRUP UDC PO SCH ×3 (06:13→22:53)
[2023-01-12] MEDS: INSULIN LISPRO (NovoLOG) PER UNIT SC SCH ×4 (07:30→20:03)
[2023-01-12] MEDS: LIDOCAINE 5% (LIDODERM) PATCH TD SCH (08:50)
[2023-01-12] MEDS: PANTOPRAZOLE 40MG TAB (PROTONIX) PO SCH (08:51)
[2023-01-12] MEDS: DAPAGLIFLOZIN PROPANEDIOL 10MG TABLET (FARXIGA) PO SCH (08:51)
[2023-01-12] MEDS: rifAXIMin 550 MG TAB (XIFAXAN) PO SCH ×2 (08:51→20:03)
[2023-01-12] MEDS: SPIRONOLACTONE 25 MG TAB PO SCH ×2 (08:51→16:20)
[2023-01-12] MEDS: ASPIRIN 81MG ENTERIC TABLET PO SCH (08:52)
[2023-01-12] MEDS: TORSEMIDE 20 MG TAB PO SCH (08:52)
[2023-01-12] MEDS: MAGNESIUM OXIDE 400MG TAB (MAG-OX) PO SCH ×2 (08:52→20:02)
[2023-01-12] MEDS ORDERED: LEVEMIR (INSULIN DETEMIR) 1 UNITS/0.01ML SC SCH ×3 (09:00→21:00)
[2023-01-12] MEDS ORDERED: FERRIC CARBOXYMALTOSE INJ 750 MG, VIAL MATE ADAPTER 1 EACH in NS 250 ML IV ONE (09:00)
[2023-01-12] MEDS: ISOSORBIDE DIN. (ISORDIL) 30 MG TAB PO SCH ×3 (09:03→20:03)
[2023-01-12] MEDS: LISINOPRIL *2.5 MG* TAB PO SCH (09:04)
[2023-01-12] MEDS: **hydrALAZINE** 50 MG TAB PO SCH ×2 (09:05→20:03)
[2023-01-12] MEDS ORDERED: LIDOCAINE 5% (LIDODERM) PATCH TD ONE (14:00)
[2023-01-12] MEDS ORDERED: INSULIN LISPRO (NovoLOG) PER UNIT SC ONE (15:00)
[2023-01-12] MEDS: ANEXSIA, NORCO 7.5MG/325MG TABLET(HYDROCODONE/APAP) PO PRN (16:31)
[2023-01-12] MEDS: ATORVASTATIN 20 MG TAB PO SCH (20:02)
[2023-01-13 06:00] VITALS: BP 121/71; TEMP 98.2; O2SAT 96
[2023-01-13] MEDS: ACETAMINOPHEN TAB 650MG DOSE (2X325MG) PO SCH (06:12)
[2023-01-13] MEDS: LACTULOSE 20GM/30ML SYRUP UDC PO SCH (06:12)
[2023-01-13] MEDS: LEVOTHYROXINE 112MCG TABLET (0.112MG) PO SCH (06:12)
[2023-01-13] MEDS: INSULIN LISPRO (NovoLOG) PER UNIT SC SCH (08:10)
[2023-01-13] MEDS: ASPIRIN 81MG ENTERIC TABLET PO SCH (08:11)
[2023-01-13] MEDS: MAGNESIUM OXIDE 400MG TAB (MAG-OX) PO SCH (08:11)
[2023-01-13] MEDS: PANTOPRAZOLE 40MG TAB (PROTONIX) PO SCH (08:11)
[2023-01-13] MEDS: DAPAGLIFLOZIN PROPANEDIOL 10MG TABLET (FARXIGA) PO SCH (08:11)
[2023-01-13] MEDS: LIDOCAINE 5% (LIDODERM) PATCH TD SCH (08:11)
[2023-01-13] MEDS: SPIRONOLACTONE 25 MG TAB PO SCH (08:11)
[2023-01-13] MEDS: rifAXIMin 550 MG TAB (XIFAXAN) PO SCH (08:11)
[2023-01-13] MEDS: **hydrALAZINE** 50 MG TAB PO SCH (08:16)
[2023-01-13 08:17] VITALS: BP 129/66
[2023-01-13] MEDS: LISINOPRIL *2.5 MG* TAB PO SCH (08:17)
[2023-01-13] MEDS: TORSEMIDE 20 MG TAB PO SCH (08:18)
[2023-01-13] MEDS: ISOSORBIDE DIN. (ISORDIL) 30 MG TAB PO SCH (08:18)
[2023-01-13] MEDS: ANEXSIA, NORCO 7.5MG/325MG TABLET(HYDROCODONE/APAP) PO PRN (08:24)
[2023-01-13] MEDS ORDERED: LEVEMIR (INSULIN DETEMIR) 1 UNITS/0.01ML SC SCH (09:00)
[2023-01-13] MEDS ORDERED: LIDO5TD TD (09:32)
[2023-01-13] MEDS ORDERED: DICL100G10 TOP (09:37)
[2023-01-13] MEDS ORDERED: LIDO1ADH20 TP (09:37)
[2023-01-13] MEDS ORDERED: FERR325T3 PO (10:37)
== END 2023-01-13 10:15 | disposition home or self-care (01) ==
LOC: EDBD 12:55 → M ED 12:55 → M ED INP 16:47 → ENRESERV 19:47 → M PCU 20:58 → M ED INP 20:59 → ENRESERV 22:11 → M MS5PR 22:34
PROVIDERS: ADMIT Student in an Organized Health Care Education/Training Program; ATTEND Student in an Organized Health Care Education/Training Program
DX: S70.01XA Contusion of right hip, initial encounter (principal); W18.30XA Fall on same level, unspecified, initial encounter; Y92.098 Other place in other non-institutional residence as the place of occurrence of the external cause; Y93.01 Activity, walking, marching and hiking; Z87.81 Personal history of (healed) traumatic fracture; M21.751 Unequal limb length (acquired), right femur; Z91.81 History of falling; M79.89 Other specified soft tissue disorders; M25.551 Pain in right hip; D50.9 Iron deficiency anemia, unspecified; E11.22 Type 2 diabetes mellitus with diabetic chronic kidney disease; M25.561 Pain in right knee; M25.562 Pain in left knee; K21.9 Gastro-esophageal reflux disease without esophagitis; I13.0 Hypertensive heart and chronic kidney disease with heart failure and stage 1 through stage 4 chronic kidney disease, or unspecified chronic kidney disease; I50.30 Unspecified diastolic (congestive) heart failure; I25.10 Atherosclerotic heart disease of native coronary artery without angina pectoris; N18.30 Chronic kidney disease, stage 3 unspecified; Z95.5 Presence of coronary angioplasty implant and graft; E11.40 Type 2 diabetes mellitus with diabetic neuropathy, unspecified; E03.9 Hypothyroidism, unspecified; K74.60 Unspecified cirrhosis of liver; Z88.1 Allergy status to other antibiotic agents; Z79.899 Other long term (current) drug therapy; Z79.82 Long term (current) use of aspirin; Z79.84 Long term (current) use of oral hypoglycemic drugs; Z79.4 Long term (current) use of insulin; Z79.890 Hormone replacement therapy
CPT/HCPCS: 36415; 71045; 73502; 73521; 73552; 73560; 73564; 80048; 80053; 80076; 81001; 82607; 82728; 82746; 83550; 83735; 85025; 85027; 87631; 93971; 96372; 96374; 97110; 97116; 97161; 97165; 97530; 97535; 99285; G0378; J1439; J1650; J1815

== ENCOUNTER 2023-01-18 10:38 | Inpatient (IN) | payer MEDICARE ==
[~2023-01-18] VITALS: Ht 165.1 cm; Wt 69.9 kg
[~2023-01-18 10:38] MED LIST changes: +DICL100G10 TOP; +LIDO1ADH20 TP; +LIDO5TD TD; +TRAM50TA2 PO; +med rec comment
[2023-01-18 12:16] LABS: BASO # 0.1 10^3/uL (0.0-0.2); BASO % 0.5 % (0.0-1.0); EOS # 0.1 10^3/uL (0.0-0.5); EOS % 0.9 % (0.0-3.0); HEMATOCRIT 31.3 % (36.0-47.0); HEMOGLOBIN 9.4 g/dl (12.0-15.5); LYMPH # 1.7 10^3/uL (1.5-5.0); LYMPH % 12.2 % (24.0-44.0); MEAN CORPUSCULAR HEMOGLOBIN 24.7 pg (27.0-33.0); MEAN CORPUSCULAR VOLUME 82.4 fl (80.0-96.0); MONO # 1.2 10^3/uL (0.0-0.8); NEUTROPHILS # 10.4 10^3/uL (1.5-8.5); NEUTROPHILS % 76.8 % (36.0-66.0); PLATELET COUNT, AUTOMATED 391 10^3/uL (150-450); WHITE BLOOD COUNT 13.5 10^3/uL (4.0-10.0)
[2023-01-18 12:34] LABS: RSV AMPLIFICATION NEGATIVE (NEGATIVE)
[2023-01-18 12:54] LABS: FREE T4 1.67 NG/DL (0.89-1.76); THYROID STIMULATING HORMONE 1.251 uIU/ML (0.55-4.78)
[2023-01-18 12:58] LABS: BLOOD UREA NITROGEN 27 MG/DL (9-23); CARBON DIOXIDE LEVEL 24 MMOL/L (20-31); CHLORIDE LEVEL 107 MMOL/L (98-107); CREATININE FOR GFR 0.82 MG/DL (0.55-1.30); GLOMERULAR FILTRATION RATE > 60.0 (>39); GLUCOSE, FASTING 33 MG/DL (74-106); MAGNESIUM LEVEL 1.9 MG/DL (1.8-2.4); POTASSIUM SERUM 4.2 MMOL/L (3.5-5.1); SODIUM LEVEL 140 MMOL/L (136-145)
[2023-01-18] MEDS ORDERED: ACETAMINOPHEN 500 MG TAB PO ONE (15:05)
[2023-01-18] MEDS ORDERED: MED REC IN PROGRESS XX SCH ×2 (15:55→17:25)
[2023-01-18] MEDS ORDERED: TRES1INJ SC (18:05)
[2023-01-18] MEDS ORDERED: METF750T36 PO (18:07)
[2023-01-18] MEDS ORDERED: DICL100G10 TOP (18:18)
[2023-01-18] MEDS ORDERED: FERR325T3 PO (18:20)
[2023-01-18] MEDS ORDERED: LACT20EL PO (18:22)
[2023-01-18] MEDS ORDERED: LIDO1PAD13 TD (18:25)
[2023-01-18] MEDS ORDERED: MAGN400T2 PO (18:27)
[2023-01-18] MEDS ORDERED: POTA10CA60 PO (18:28)
[2023-01-18] MEDS ORDERED: XIFA550T PO (18:29)
[2023-01-18] MEDS ORDERED: DEXTROSE 50% 50ML SYRINGE IV PRN (18:30)
[2023-01-18] MEDS ORDERED: GLUCAGON INJ 1MG VIAL SC PRN (18:30)
[2023-01-18] MEDS ORDERED: GLUCOSE 4GM CHEW TABLET PO PRN (18:30)
[2023-01-18] MEDS ORDERED: TORS20TA2 PO (18:30)
[2023-01-18] MEDS ORDERED: HOME MED LIST COMPLETE! XX SCH (18:35)
[2023-01-18 20:04] LABS: HEMOGLOBIN A1c 6.8 % (4.0-6.0)
[2023-01-18] MEDS: INSULIN LISPRO (NovoLOG) PER UNIT SC SCH (21:00)
[2023-01-18] MEDS: ACETAMINOPHEN 500 MG TAB PO SCH (21:00)
[2023-01-18 21:10] VITALS: BP 148/65; TEMP 98.6; O2SAT 100
[2023-01-18] MEDS: LACTULOSE 20GM/30ML SYRUP UDC PO SCH (22:29)
[2023-01-18] MEDS: ATORVASTATIN 20 MG TAB PO SCH (22:30)
[2023-01-18] MEDS: rifAXIMin 550 MG TAB (XIFAXAN) PO SCH (22:30)
[2023-01-18] MEDS: ISOSORBIDE DIN. (ISORDIL) 30 MG TAB PO SCH (22:33)
[2023-01-18] MEDS: MAGNESIUM OXIDE 400MG TAB (MAG-OX) PO SCH (22:34)
[2023-01-18] MEDS: KETOROLAC 30 MG/ML 1ML VIAL IV PRN ×2 (22:35→23:20)
[2023-01-18] MEDS: LIDOCAINE 5% (LIDODERM) PATCH TD SCH (22:42)
[2023-01-19] MEDS ORDERED: D5W 1,000 ML IV SCH (04:25)
[2023-01-19 05:27] LABS: BASO # 0.1 10^3/uL (0.0-0.2); BASO % 0.9 % (0.0-1.0); EOS # 0.4 10^3/uL (0.0-0.5); EOS % 6.4 % (0.0-3.0); HEMATOCRIT 28.7 % (36.0-47.0); HEMOGLOBIN 8.6 g/dl (12.0-15.5); LYMPH # 1.7 10^3/uL (1.5-5.0); LYMPH % 23.9 % (24.0-44.0); MEAN CORPUSCULAR HEMOGLOBIN 24.9 pg (27.0-33.0); MEAN CORPUSCULAR VOLUME 83.2 fl (80.0-96.0); MONO # 0.9 10^3/uL (0.0-0.8); MONO % 12.5 % (2.0-8.0); NEUTROPHILS # 3.9 10^3/uL (1.5-8.5); RED BLOOD COUNT 3.45 10^6/uL (4.00-5.40); WHITE BLOOD COUNT 6.9 10^3/uL (4.0-10.0)
[2023-01-19 05:34] LABS: PLATELET COUNT, AUTOMATED 260 10^3/uL (150-450)
[2023-01-19 05:45] VITALS: BP 131/63; TEMP 98; O2SAT 100
[2023-01-19] MEDS: LEVOTHYROXINE 112MCG TABLET (0.112MG) PO SCH (05:48)
[2023-01-19 05:54] LABS: BLOOD UREA NITROGEN 24 MG/DL (9-23); CALCIUM LEVEL 8.2 MG/DL (8.3-10.6); CARBON DIOXIDE LEVEL 21 MMOL/L (20-31); CHLORIDE LEVEL 103 MMOL/L (98-107); CREATININE FOR GFR 0.78 MG/DL (0.55-1.30); GLOMERULAR FILTRATION RATE > 60.0 (>39); GLUCOSE, FASTING 109 MG/DL (74-106); POTASSIUM SERUM 4.2 MMOL/L (3.5-5.1); SODIUM LEVEL 135 MMOL/L (136-145)
[2023-01-19 05:57] LABS: HEMOGLOBIN A1c 6.7 % (4.0-6.0)
[2023-01-19] MEDS: INSULIN LISPRO (NovoLOG) PER UNIT SC SCH ×4 (07:30→20:25)
[2023-01-19] MEDS: LACTULOSE 20GM/30ML SYRUP UDC PO SCH ×3 (08:25→20:41)
[2023-01-19] MEDS: ISOSORBIDE DIN. (ISORDIL) 30 MG TAB PO SCH ×3 (08:26→20:38)
[2023-01-19] MEDS: MAGNESIUM OXIDE 400MG TAB (MAG-OX) PO SCH ×2 (08:26→20:39)
[2023-01-19] MEDS: rifAXIMin 550 MG TAB (XIFAXAN) PO SCH ×2 (08:26→20:38)
[2023-01-19] MEDS: ASPIRIN 81MG ENTERIC TABLET PO SCH (08:26)
[2023-01-19] MEDS: SPIRONOLACTONE 25 MG TAB PO SCH ×2 (08:26→16:17)
[2023-01-19] MEDS: TORSEMIDE 20 MG TAB PO SCH (08:26)
[2023-01-19] MEDS: ACETAMINOPHEN 500 MG TAB PO SCH ×3 (08:28→20:40)
[2023-01-19] MEDS ORDERED: DAPAGLIFLOZIN PROPANEDIOL 10MG TABLET (FARXIGA) PO SCH (09:00)
[2023-01-19] MEDS ORDERED: LEVEMIR (INSULIN DETEMIR) 1 UNITS/0.01ML SC SCH (09:00)
[2023-01-19 14:00] VITALS: BP 139/63; TEMP 98.6; O2SAT 99
[2023-01-19] MEDS: KETOROLAC 30 MG/ML 1ML VIAL IV PRN (14:02)
[2023-01-19 20:12] VITALS: BP 133/61; TEMP 97.8; O2SAT 100
[2023-01-19] MEDS: LEVEMIR (INSULIN DETEMIR) 1 UNITS/0.01ML SC SCH (20:35)
[2023-01-19] MEDS: ATORVASTATIN 20 MG TAB PO SCH (20:39)
[2023-01-19] MEDS: LIDOCAINE 5% (LIDODERM) PATCH TD SCH (20:41)
[2023-01-20 05:36] LABS: BASO # 0.1 10^3/uL (0.0-0.2); BASO % 0.9 % (0.0-1.0); EOS # 0.5 10^3/uL (0.0-0.5); EOS % 7.8 % (0.0-3.0); HEMATOCRIT 28.6 % (36.0-47.0); HEMOGLOBIN 8.8 g/dl (12.0-15.5); LYMPH # 1.7 10^3/uL (1.5-5.0); LYMPH % 26.1 % (24.0-44.0); MEAN CORPUSCULAR HEMOGLOBIN 25.4 pg (27.0-33.0); MEAN CORPUSCULAR HGB CONC 30.8 g/dl (32.0-36.5); MEAN CORPUSCULAR VOLUME 82.7 fl (80.0-96.0); MONO # 0.8 10^3/uL (0.0-0.8); NEUTROPHILS # 3.3 10^3/uL (1.5-8.5); NEUTROPHILS % 51.9 % (36.0-66.0); PLATELET COUNT, AUTOMATED 240 10^3/uL (150-450); RED BLOOD COUNT 3.46 10^6/uL (4.00-5.40); WHITE BLOOD COUNT 6.3 10^3/uL (4.0-10.0)
[2023-01-20 05:59] LABS: BLOOD UREA NITROGEN 34 MG/DL (9-23); CALCIUM LEVEL 8.4 MG/DL (8.3-10.6); CARBON DIOXIDE LEVEL 22 MMOL/L (20-31); CHLORIDE LEVEL 105 MMOL/L (98-107); CREATININE FOR GFR 0.84 MG/DL (0.55-1.30); GLOMERULAR FILTRATION RATE > 60.0 (>39); GLUCOSE, FASTING 110 MG/DL (74-106); POTASSIUM SERUM 4.5 MMOL/L (3.5-5.1); SODIUM LEVEL 136 MMOL/L (136-145)
[2023-01-20] MEDS: LEVOTHYROXINE 112MCG TABLET (0.112MG) PO SCH (06:07)
[2023-01-20] MEDS: KETOROLAC 30 MG/ML 1ML VIAL IV PRN (06:15)
[2023-01-20 06:18] VITALS: TEMP 98.1; O2SAT 99
[2023-01-20 06:43] VITALS: BP 146/58
[2023-01-20] MEDS: INSULIN LISPRO (NovoLOG) PER UNIT SC SCH ×4 (07:04→20:50)
[2023-01-20] MEDS: ASPIRIN 81MG ENTERIC TABLET PO SCH (08:43)
[2023-01-20] MEDS: TORSEMIDE 20 MG TAB PO SCH (08:43)
[2023-01-20] MEDS: MAGNESIUM OXIDE 400MG TAB (MAG-OX) PO SCH ×2 (08:44→20:36)
[2023-01-20] MEDS: rifAXIMin 550 MG TAB (XIFAXAN) PO SCH ×2 (08:44→20:36)
[2023-01-20] MEDS: DAPAGLIFLOZIN PROPANEDIOL 10MG TABLET (FARXIGA) PO SCH (08:44)
[2023-01-20] MEDS: ACETAMINOPHEN 500 MG TAB PO SCH ×3 (08:44→20:35)
[2023-01-20] MEDS: SPIRONOLACTONE 25 MG TAB PO SCH ×2 (08:44→17:11)
[2023-01-20] MEDS: LACTULOSE 20GM/30ML SYRUP UDC PO SCH ×3 (08:49→20:36)
[2023-01-20] MEDS: ISOSORBIDE DIN. (ISORDIL) 30 MG TAB PO SCH ×3 (08:49→20:35)
[2023-01-20 14:00] VITALS: BP 133/61; TEMP 98.6; O2SAT 100
[2023-01-20] MEDS: KETOROLAC 30 MG/ML 1ML VIAL IV SCH ×2 (14:16→23:08)
[2023-01-20] MEDS: LEVEMIR (INSULIN DETEMIR) 1 UNITS/0.01ML SC SCH (20:32)
[2023-01-20] MEDS: LIDOCAINE 5% (LIDODERM) PATCH TD SCH (20:32)
[2023-01-20] MEDS: ATORVASTATIN 20 MG TAB PO SCH (20:35)
[2023-01-20 20:40] VITALS: BP 142/62; TEMP 98.8; O2SAT 98
[2023-01-21] MEDS: LEVOTHYROXINE 112MCG TABLET (0.112MG) PO SCH (06:04)
[2023-01-21] MEDS: KETOROLAC 30 MG/ML 1ML VIAL IV SCH ×2 (06:05→13:09)
[2023-01-21 06:16] LABS: BASO # 0.1 10^3/uL (0.0-0.2); BASO % 0.8 % (0.0-1.0); EOS # 0.5 10^3/uL (0.0-0.5); EOS % 8.2 % (0.0-3.0); HEMATOCRIT 27.1 % (36.0-47.0); HEMOGLOBIN 8.2 g/dl (12.0-15.5); LYMPH # 1.6 10^3/uL (1.5-5.0); LYMPH % 26.9 % (24.0-44.0); MEAN CORPUSCULAR HEMOGLOBIN 25.2 pg (27.0-33.0); MEAN CORPUSCULAR HGB CONC 30.3 g/dl (32.0-36.5); MEAN CORPUSCULAR VOLUME 83.4 fl (80.0-96.0); MONO # 0.8 10^3/uL (0.0-0.8); MONO % 12.8 % (2.0-8.0); PLATELET COUNT, AUTOMATED 213 10^3/uL (150-450); RED BLOOD COUNT 3.25 10^6/uL (4.00-5.40); WHITE BLOOD COUNT 5.9 10^3/uL (4.0-10.0)
[2023-01-21 06:20] VITALS: BP 135/55; TEMP 98.2; O2SAT 98
[2023-01-21 06:32] LABS: BLOOD UREA NITROGEN 45 MG/DL (9-23); CARBON DIOXIDE LEVEL 22 MMOL/L (20-31); CHLORIDE LEVEL 109 MMOL/L (98-107); CREATININE FOR GFR 0.83 MG/DL (0.55-1.30); GLOMERULAR FILTRATION RATE > 60.0 (>39); GLUCOSE, FASTING 123 MG/DL (74-106); POTASSIUM SERUM 4.8 MMOL/L (3.5-5.1); SODIUM LEVEL 141 MMOL/L (136-145)
[2023-01-21] MEDS: INSULIN LISPRO (NovoLOG) PER UNIT SC SCH ×2 (07:18→12:15)
[2023-01-21] MEDS: LACTULOSE 20GM/30ML SYRUP UDC PO SCH (08:46)
[2023-01-21 08:47] VITALS: BP 142/58
[2023-01-21] MEDS: ISOSORBIDE DIN. (ISORDIL) 30 MG TAB PO SCH (08:47)
[2023-01-21] MEDS: rifAXIMin 550 MG TAB (XIFAXAN) PO SCH (08:47)
[2023-01-21] MEDS: SPIRONOLACTONE 25 MG TAB PO SCH (08:47)
[2023-01-21] MEDS: ASPIRIN 81MG ENTERIC TABLET PO SCH (08:47)
[2023-01-21] MEDS: MAGNESIUM OXIDE 400MG TAB (MAG-OX) PO SCH (08:47)
[2023-01-21] MEDS: DAPAGLIFLOZIN PROPANEDIOL 10MG TABLET (FARXIGA) PO SCH (08:47)
[2023-01-21] MEDS: TORSEMIDE 20 MG TAB PO SCH (08:47)
[2023-01-21] MEDS: ACETAMINOPHEN 500 MG TAB PO SCH (08:48)
[2023-01-21] MEDS ORDERED: LEVEMIR (INSULIN DETEMIR) 1 UNITS/0.01ML SC SCH ×2 (09:00→21:00)
[2023-01-21] MEDS ORDERED: OMEP-173 PO (11:22)
[2023-01-21] MEDS ORDERED: NAPR-885 PO (11:22)
[2023-01-21] MEDS ORDERED: TRES1INJ SC (11:22)
[2023-01-21] MEDS ORDERED: AMLO1TAB24 PO (11:22)
== END 2023-01-21 13:55 | disposition home health service (06) | DRG 638 ==
LOC: EDBD 10:38 → M ED 10:38 → M ED INP 18:21 → ENRESERV 19:37 → M MSPAV 21:09
PROVIDERS: ADMIT Internal Medicine Nephrology; ATTEND Internal Medicine Nephrology
DX: E11.649 Type 2 diabetes mellitus with hypoglycemia without coma (principal); I50.42 Chronic combined systolic (congestive) and diastolic (congestive) heart failure; I13.0 Hypertensive heart and chronic kidney disease with heart failure and stage 1 through stage 4 chronic kidney disease, or unspecified chronic kidney disease; E78.5 Hyperlipidemia, unspecified; K75.81 Nonalcoholic steatohepatitis (NASH); N18.30 Chronic kidney disease, stage 3 unspecified; I27.20 Pulmonary hypertension, unspecified; E61.1 Iron deficiency; M48.061 Spinal stenosis, lumbar region without neurogenic claudication; M79.7 Fibromyalgia; E11.22 Type 2 diabetes mellitus with diabetic chronic kidney disease; K76.82 Hepatic encephalopathy; E55.9 Vitamin D deficiency, unspecified; G89.29 Other chronic pain; K21.9 Gastro-esophageal reflux disease without esophagitis; E03.9 Hypothyroidism, unspecified; E53.8 Deficiency of other specified B group vitamins; M47.812 Spondylosis without myelopathy or radiculopathy, cervical region; E11.42 Type 2 diabetes mellitus with diabetic polyneuropathy; I25.10 Atherosclerotic heart disease of native coronary artery without angina pectoris; S70.12XA Contusion of left thigh, initial encounter; K74.60 Unspecified cirrhosis of liver; S20.212A Contusion of left front wall of thorax, initial encounter; S40.022A Contusion of left upper arm, initial encounter; D63.8 Anemia in other chronic diseases classified elsewhere; R29.6 Repeated falls; R63.4 Abnormal weight loss; Z79.82 Long term (current) use of aspirin; Z79.890 Hormone replacement therapy; Z79.84 Long term (current) use of oral hypoglycemic drugs; Z79.899 Other long term (current) drug therapy; Z88.1 Allergy status to other antibiotic agents; Z98.41 Cataract extraction status, right eye; Z98.42 Cataract extraction status, left eye; Z95.5 Presence of coronary angioplasty implant and graft; W06.XXXA Fall from bed, initial encounter; Y92.032 Bedroom in apartment as the place of occurrence of the external cause; Y93.89 Activity, other specified; Y99.8 Other external cause status; Z79.891 Long term (current) use of opiate analgesic

== ENCOUNTER → 2023-01-22 | Outpatient (CLI) | payer MEDICARE ==
[~2023-01-22] MED LIST changes: +LIDO1PAD13 TD; +NAPR-885 PO; +OMEP-173 PO; +POTA10CA60 PO
[2023-01-22 20:21] LABS: HEMOGLOBIN A1c 6.6 % (4.0-6.0)
[2023-01-22 20:32] LABS: CREATININE, URINE 33.5 MG/DL
[2023-01-22 20:33] LABS: MAU/CREAT RATIO 44.7 MCG/MG (0.0-30.0)
[2023-01-22 20:34] LABS: BASO # 0.1 10^3/uL (0.0-0.2); BASO % 1.1 % (0.0-1.0); EOS # 0.4 10^3/uL (0.0-0.5); HEMATOCRIT 30.7 % (36.0-47.0); HEMOGLOBIN 9.1 g/dl (12.0-15.5); LYMPH # 1.3 10^3/uL (1.5-5.0); LYMPH % 18.3 % (24.0-44.0); MEAN CORPUSCULAR HEMOGLOBIN 25.3 pg (27.0-33.0); MEAN CORPUSCULAR HGB CONC 29.6 g/dl (32.0-36.5); MEAN CORPUSCULAR VOLUME 85.5 fl (80.0-96.0); MONO # 0.6 10^3/uL (0.0-0.8); NEUTROPHILS # 4.9 10^3/uL (1.5-8.5); PLATELET COUNT, AUTOMATED 240 10^3/uL (150-450); RED BLOOD COUNT 3.59 10^6/uL (4.00-5.40); WHITE BLOOD COUNT 7.3 10^3/uL (4.0-10.0)
[2023-01-22 20:38] LABS: ALBUMIN 3.4 G/DL (3.2-5.2); ALKALINE PHOSPHATASE 247 U/L (46-116); ALT/SGPT 31 U/L (7.0-40); AST/SGOT 32 U/L (<34); BILIRUBIN,TOTAL 0.7 MG/DL (0.3-1.2); BLOOD UREA NITROGEN 39 MG/DL (9-23); CALCIUM LEVEL 8.9 MG/DL (8.3-10.6); CARBON DIOXIDE LEVEL 20 MMOL/L (20-31); CHLORIDE LEVEL 107 MMOL/L (98-107); GLOMERULAR FILTRATION RATE > 60.0 (>39); GLUCOSE, FASTING 360 MG/DL (74-106); IRON (FE) 46 UG/DL (50-170); POTASSIUM SERUM 5.2 MMOL/L (3.5-5.1); SODIUM LEVEL 140 MMOL/L (136-145); TOTAL PROTEIN 6.5 G/DL (5.7-8.2)
== END ==
LOC: M WUC 11:06
PROVIDERS: ATTEND Internal Medicine Hematology
DX: E11.8 Type 2 diabetes mellitus with unspecified complications (principal); D50.0 Iron deficiency anemia secondary to blood loss (chronic)

== ENCOUNTER → 2023-02-13 | Outpatient (CLI) | payer MEDICARE ==
[~2023-02-13] MED LIST changes: +CEFD1CAP9 PO; -CEFD300C42 PO
== END ==
LOC: M SOG 08:05
PROVIDERS: ATTEND Orthopaedic Surgery
DX: Z53.9 Procedure and treatment not carried out, unspecified reason (principal)

== ENCOUNTER → 2023-05-06 | Outpatient (CLI) | payer MEDICARE ==
[~2023-05-06] MED LIST changes: +CALCD50TA PO; +HYDR-161 PO; -HYDR-3911 PO; -HYDR10TAB PO; -HYDR25TA PO; +HYDR25TA88 PO; +HYDR50TA46 PO
== END ==
LOC: M SOG 10:09
PROVIDERS: ATTEND Orthopaedic Surgery
DX: M79.601 Pain in right arm (principal); S72.141D Displaced intertrochanteric fracture of right femur, subsequent encounter for closed fracture with routine healing

== ENCOUNTER → 2023-06-14 | Outpatient (CLI) | payer MEDICARE | LOC: M SOG 09:27 | PROVIDERS: ATTEND Orthopaedic Surgery | DX: M79.601 Pain in right arm (principal); S72.141D Displaced intertrochanteric fracture of right femur, subsequent encounter for closed fracture with routine healing; W18.30XA Fall on same level, unspecified, initial encounter ==

== ENCOUNTER 2023-06-26 17:51 | Emergency (ER) | payer MEDICARE ==
[~2023-06-26] VITALS: Ht 165.1 cm; Wt 76.8 kg
[~2023-06-26 17:51] MED LIST changes: -POTA10CA60 PO; +POTA10CA70 PO
[2023-06-26] MEDS: traMADol 50 MG TAB PO ONE (19:44)
[2023-06-26 22:47] VITALS: BP 140/63; TEMP 97.3; O2SAT 99
== END 2023-06-26 22:58 | disposition home or self-care (01) ==
LOC: M ED 17:51
DX: M54.50 Low back pain, unspecified (principal); M79.605 Pain in left leg; Z88.8 Allergy status to other drugs, medicaments and biological substances; Z79.899 Other long term (current) drug therapy; Z79.4 Long term (current) use of insulin; Z79.84 Long term (current) use of oral hypoglycemic drugs

== ENCOUNTER → 2023-07-05 | Outpatient (CLI) | payer MEDICARE ==
[2023-07-05 13:28] LABS: HEMATOCRIT 33.5 % (36.0-47.0); MEAN CORPUSCULAR HEMOGLOBIN 21.9 pg (27.0-33.0); MEAN CORPUSCULAR HGB CONC 29.9 g/dl (32.0-36.5); MEAN CORPUSCULAR VOLUME 73.5 fl (80.0-96.0); PLATELET COUNT, AUTOMATED 315 10^3/uL (150-450); RED BLOOD COUNT 4.56 10^6/uL (4.00-5.40); WHITE BLOOD COUNT 7.3 10^3/uL (4.0-10.0)
[2023-07-05 13:49] LABS: IRON (FE) 19 UG/DL (50-170)
[2023-07-05 14:15] LABS: TOTAL 25(OH) VITAMIN D 24.8 NG/ML (20.0-100.0)
[2023-07-05 14:17] LABS: VITAMIN B12 LEVEL 1009 PG/ML (211-911)
[2023-07-05 14:18] LABS: ALBUMIN 2.6 G/DL (3.2-5.2); ALKALINE PHOSPHATASE 199 U/L (46-116); ALT/SGPT 21 U/L (7.0-40); AST/SGOT 20 U/L (<34); BILIRUBIN,TOTAL 0.8 MG/DL (0.3-1.2); BLOOD UREA NITROGEN 22 MG/DL (9-23); CARBON DIOXIDE LEVEL 25 MMOL/L (20-31); CHLORIDE LEVEL 103 MMOL/L (98-107); CHOLESTEROL LEVEL 130 MG/DL (<200); CHOLESTEROL RISK RATIO 2.92 (<5); CREATININE FOR GFR 0.65 MG/DL (0.55-1.30); GLOMERULAR FILTRATION RATE > 60.0 (>39); GLUCOSE, FASTING 267 MG/DL (74-106); HDL CHOLESTEROL 44.4 MG/DL (>40); NON-HDL-C 85.6 MG/DL; SODIUM LEVEL 136 MMOL/L (136-145); TOTAL PROTEIN 6.3 G/DL (5.7-8.2); TRIGLYCERIDES LEVEL 88 MG/DL (<150)
[2023-07-05 14:38] LABS: HEMOGLOBIN A1c 12.9 % (4.0-6.0)
== END ==
LOC: M PLALAB 09:17
PROVIDERS: ATTEND Internal Medicine Hematology
DX: E11.9 Type 2 diabetes mellitus without complications (principal); D50.0 Iron deficiency anemia secondary to blood loss (chronic); M47.27 Other spondylosis with radiculopathy, lumbosacral region; R53.1 Weakness; Z79.4 Long term (current) use of insulin

== ENCOUNTER 2023-07-06 20:10 | Emergency (ER) | payer MEDICARE ==
[~2023-07-06] VITALS: Ht 160 cm; Wt 70.0 kg
[2023-07-06] MEDS: ACETAMINOPHEN 500 MG TAB PO ONE (23:21)
[2023-07-07 02:11] VITALS: BP 173/70; TEMP 97.6; O2SAT 98
== END 2023-07-07 01:58 | disposition home or self-care (01) ==
LOC: M ED 20:10
DX: S60.221A Contusion of right hand, initial encounter (principal); M25.552 Pain in left hip; M54.50 Low back pain, unspecified; Y92.019 Unspecified place in single-family (private) house as the place of occurrence of the external cause; Y93.9 Activity, unspecified; Y99.9 Unspecified external cause status; W54.1XXA Struck by dog, initial encounter; Z88.8 Allergy status to other drugs, medicaments and biological substances; Z79.4 Long term (current) use of insulin; Z79.84 Long term (current) use of oral hypoglycemic drugs; Z79.899 Other long term (current) drug therapy

== ENCOUNTER → 2023-07-08 | Outpatient (CLI) | payer MEDICARE | LOC: M LAB 08:45 | PROVIDERS: ATTEND Internal Medicine Hematology | DX: E11.9 Type 2 diabetes mellitus without complications (principal) ==

== ENCOUNTER 2023-08-08 10:33 | Inpatient (IN) | payer MEDICARE ==
[~2023-08-08] VITALS: Ht 160 cm; Wt 63.5 kg
[2023-08-08 11:55] LABS: BASO # 0.1 10^3/uL (0.0-0.2); BASO % 1.3 % (0.0-1.0); EOS # 0.4 10^3/uL (0.0-0.5); EOS % 4.8 % (0.0-3.0); HEMATOCRIT 41.9 % (36.0-47.0); HEMOGLOBIN 13.2 g/dl (12.0-15.5); LYMPH # 1.9 10^3/uL (1.5-5.0); LYMPH % 25.6 % (24.0-44.0); MEAN CORPUSCULAR HEMOGLOBIN 22.1 pg (27.0-33.0); MEAN CORPUSCULAR HGB CONC 31.5 g/dl (32.0-36.5); MEAN CORPUSCULAR VOLUME 70.2 fl (80.0-96.0); MONO # 0.7 10^3/uL (0.0-0.8); MONO % 9.1 % (2.0-8.0); NEUTROPHILS # 4.5 10^3/uL (1.5-8.5); NEUTROPHILS % 58.9 % (36.0-66.0); PLATELET COUNT, AUTOMATED 259 10^3/uL (150-450); RED BLOOD COUNT 5.97 10^6/uL (4.00-5.40); WHITE BLOOD COUNT 7.6 10^3/uL (4.0-10.0)
[2023-08-08 12:23] LABS: ALBUMIN 3.9 G/DL (3.2-5.2); ALKALINE PHOSPHATASE 202 U/L (46-116); ALT/SGPT 52 U/L (7.0-40); AST/SGOT 42 U/L (<34); BILIRUBIN,DIRECT 0.3 MG/DL (<0.4); BILIRUBIN,TOTAL 1.1 MG/DL (0.3-1.2); BLOOD UREA NITROGEN 45 MG/DL (9-23); CALCIUM LEVEL 9.8 MG/DL (8.3-10.6); CARBON DIOXIDE LEVEL 25 MMOL/L (20-31); CHLORIDE LEVEL 95 MMOL/L (98-107); CREATININE FOR GFR 1.26 MG/DL (0.55-1.30); GLOMERULAR FILTRATION RATE > 60.0 (>39); GLUCOSE, FASTING 389 MG/DL (74-106); POTASSIUM SERUM 5.6 MMOL/L (3.5-5.1); SODIUM LEVEL 129 MMOL/L (136-145); TOTAL PROTEIN 7.8 G/DL (5.7-8.2)
[2023-08-08 12:25] LABS: THYROID STIMULATING HORMONE 1.526 uIU/ML (0.55-4.78)
[2023-08-08 12:58] LABS: CK-MB VALUE MASS 1.4 NG/ML (<3.6)
[2023-08-08 13:00] LABS: MB/CK RELATIVE INDEX 2.85 (< OR =4)
[2023-08-08] MEDS: PATIROMER SORBITEX CALCIUM 8.4 GM POWDER PACKET (VELTASSA) PO ONE (13:05)
[2023-08-08] MEDS: NS 1,000 ML IV ONE (13:05)
[2023-08-08 14:14] LABS: MAGNESIUM LEVEL 1.9 MG/DL (1.8-2.4)
[2023-08-08 14:15] LABS: CK-MB VALUE MASS 1.4 NG/ML (<3.6)
[2023-08-08 14:19] LABS: MB/CK RELATIVE INDEX 2.97 (< OR =4)
[2023-08-08] MEDS ORDERED: ISOVUE-370 76% 100ML VIAL As Ordered ONE (15:10)
[2023-08-08 16:22] LABS: CPK CREATINE PHOSPHOKINASE 45 U/L (34-145)
[2023-08-08 16:29] LABS: BLOOD UREA NITROGEN 44 MG/DL (9-23); CALCIUM LEVEL 8.4 MG/DL (8.3-10.6); CARBON DIOXIDE LEVEL 23 MMOL/L (20-31); CHLORIDE LEVEL 99 MMOL/L (98-107); CK-MB VALUE MASS 1.2 NG/ML (<3.6); CREATININE FOR GFR 1.15 MG/DL (0.55-1.30); GLOMERULAR FILTRATION RATE > 60.0 (>39); GLUCOSE, FASTING 348 MG/DL (74-106); MB/CK RELATIVE INDEX 2.66 (< OR =4); POTASSIUM SERUM 4.8 MMOL/L (3.5-5.1); SODIUM LEVEL 129 MMOL/L (136-145)
[2023-08-08] MEDS: INSULIN LISPRO (NovoLOG) PER UNIT SC ONE ×2 (17:28→22:40)
[2023-08-08] MEDS: LACTULOSE 20GM/30ML SYRUP UDC PO ONE (17:30)
[2023-08-08] MEDS: LACTULOSE 20GM/30ML SYRUP UDC PO SCH (18:00)
[2023-08-08] MEDS ORDERED: INSUDET SC (18:42)
[2023-08-08] MEDS ORDERED: HOME MED LIST COMPLETE! XX SCH (18:45)
[2023-08-08] MEDS: PANTOPRAZOLE 40MG VIAL IV SCH (20:18)
[2023-08-08] MEDS: FLEET ENEMA PR ONE (20:19)
[2023-08-08] MEDS ORDERED: GLUCAGON INJ 1MG VIAL SC PRN (22:00)
[2023-08-08] MEDS ORDERED: GLUCOSE 4 GM CHEW PO PRN (22:00)
[2023-08-08] MEDS: DOCUSATE SODIUM 100MG CAPSULE PO SCH (22:40)
[2023-08-08] MEDS: LEVEMIR (INSULIN DETEMIR) 1 UNITS/0.01ML SC ONE (22:40)
[2023-08-08] MEDS: SENNA 8.6 MG TAB (SENOKOT) PO SCH (22:41)
[2023-08-08] MEDS: ATORVASTATIN 20 MG TAB PO SCH (22:41)
[2023-08-08] MEDS: NS 1,000 ML IV SCH (22:42)
[2023-08-08 23:00] VITALS: BP 157/68; TEMP 97.5; O2SAT 99
[2023-08-08] MEDS ORDERED: LEVEMIR (INSULIN DETEMIR) 1 UNITS/0.01ML SC ONE (23:00)
[2023-08-09] MEDS: INSULIN LISPRO (NovoLOG) PER UNIT SC ONE (00:50)
[2023-08-09] MEDS: LEVOTHYROXINE 112MCG TABLET (0.112MG) PO SCH (04:37)
[2023-08-09] MEDS: DEXTROSE 50% 50ML SYRINGE IV PRN (04:45)
[2023-08-09 05:00] VITALS: BP 146/68; TEMP 97; O2SAT 98
[2023-08-09] MEDS: INSULIN LISPRO (NovoLOG) PER UNIT SC SCH ×4 (05:08→20:08)
[2023-08-09] MEDS ORDERED: ISOSORBIDE DIN. (ISORDIL) 30 MG TAB PO SCH (08:00)
[2023-08-09] MEDS: DULoxetine 30MG CAPSULE (CYMBALTA) PO SCH (08:36)
[2023-08-09] MEDS: ISOSORBIDE DIN. (ISORDIL) 30 MG TAB PO SCH (08:40)
[2023-08-09 08:55] VITALS: BP_SYST 146; BP_SYST 148; BP_SYST 150; BP_DIAS 61; BP_DIAS 66; BP_DIAS 67
[2023-08-09 10:04] LABS: BASO # 0.1 10^3/uL (0.0-0.2); BASO % 1.3 % (0.0-1.0); BLOOD UREA NITROGEN 37 MG/DL (9-23); CALCIUM LEVEL 8.4 MG/DL (8.3-10.6); CARBON DIOXIDE LEVEL 21 MMOL/L (20-31); CHLORIDE LEVEL 105 MMOL/L (98-107); EOS # 0.3 10^3/uL (0.0-0.5); EOS % 4.5 % (0.0-3.0); GLOMERULAR FILTRATION RATE > 60.0 (>39); GLUCOSE, FASTING 251 MG/DL (74-106); HEMATOCRIT 37.7 % (36.0-47.0); HEMOGLOBIN 11.3 g/dl (12.0-15.5); LYMPH # 1.6 10^3/uL (1.5-5.0); LYMPH % 25.5 % (24.0-44.0); MEAN CORPUSCULAR HEMOGLOBIN 22.1 pg (27.0-33.0); MEAN CORPUSCULAR VOLUME 73.6 fl (80.0-96.0); MONO # 0.6 10^3/uL (0.0-0.8); MONO % 9.3 % (2.0-8.0); NEUTROPHILS # 3.7 10^3/uL (1.5-8.5); NEUTROPHILS % 59.2 % (36.0-66.0); PLATELET COUNT, AUTOMATED 199 10^3/uL (150-450); POTASSIUM SERUM 4.4 MMOL/L (3.5-5.1); RED BLOOD COUNT 5.12 10^6/uL (4.00-5.40); SODIUM LEVEL 136 MMOL/L (136-145); WHITE BLOOD COUNT 6.2 10^3/uL (4.0-10.0)
[2023-08-09 11:00] LABS: HEMOGLOBIN A1c > 14.0 % (4.0-6.0)
[2023-08-09] MEDS: amLODIPine 5 MG TAB PO SCH (11:14)
[2023-08-09 12:00] VITALS: BP 152/73; TEMP 97.5; O2SAT 95
[2023-08-09 20:00] VITALS: BP 143/74; TEMP 97.5; O2SAT 97
[2023-08-09] MEDS: LEVEMIR (INSULIN DETEMIR) 1 UNITS/0.01ML SC SCH (20:07)
[2023-08-09] MEDS ORDERED: LEVEMIR (INSULIN DETEMIR) 1 UNITS/0.01ML SC SCH (21:00)
[2023-08-10 04:00] VITALS: BP 138/69; TEMP 97.3; O2SAT 94
[2023-08-10 05:46] LABS: BASO # 0.1 10^3/uL (0.0-0.2); BASO % 1.2 % (0.0-1.0); EOS # 0.4 10^3/uL (0.0-0.5); EOS % 6.3 % (0.0-3.0); HEMATOCRIT 34.6 % (36.0-47.0); HEMOGLOBIN 10.7 g/dl (12.0-15.5); LYMPH # 2.2 10^3/uL (1.5-5.0); LYMPH % 32.3 % (24.0-44.0); MEAN CORPUSCULAR HEMOGLOBIN 22.2 pg (27.0-33.0); MEAN CORPUSCULAR HGB CONC 30.9 g/dl (32.0-36.5); MEAN CORPUSCULAR VOLUME 71.8 fl (80.0-96.0); MONO # 0.8 10^3/uL (0.0-0.8); MONO % 11.3 % (2.0-8.0); NEUTROPHILS # 3.3 10^3/uL (1.5-8.5); NEUTROPHILS % 48.6 % (36.0-66.0); PLATELET COUNT, AUTOMATED 178 10^3/uL (150-450); RED BLOOD COUNT 4.82 10^6/uL (4.00-5.40); WHITE BLOOD COUNT 6.8 10^3/uL (4.0-10.0)
[2023-08-10 06:26] LABS: BLOOD UREA NITROGEN 32 MG/DL (9-23); CALCIUM LEVEL 8.9 MG/DL (8.3-10.6); CARBON DIOXIDE LEVEL 21 MMOL/L (20-31); CHLORIDE LEVEL 106 MMOL/L (98-107); CREATININE FOR GFR 0.69 MG/DL (0.55-1.30); GLOMERULAR FILTRATION RATE > 60.0 (>39); GLUCOSE, FASTING 60 MG/DL (74-106); POTASSIUM SERUM 4.2 MMOL/L (3.5-5.1); SODIUM LEVEL 135 MMOL/L (136-145)
[2023-08-10 08:15] VITALS: BP 146/68; TEMP 97.5; O2SAT 98
[2023-08-10] MEDS: ONDANSETRON 4MG 2ML VIAL IV PRN (11:43)
[2023-08-10 12:00] VITALS: BP 147/68; TEMP 97.7; O2SAT 97
[2023-08-10 20:00] VITALS: BP 141/58; TEMP 97.5; O2SAT 95
[2023-08-10] MEDS: ANEXSIA, NORCO 7.5MG/325MG TABLET(HYDROCODONE/APAP) PO ONE (20:26)
[2023-08-11 04:00] VITALS: BP 139/56; TEMP 97.5; O2SAT 93
[2023-08-11 05:59] LABS: BASO # 0.1 10^3/uL (0.0-0.2); BASO % 1.2 % (0.0-1.0); EOS # 0.5 10^3/uL (0.0-0.5); EOS % 8.1 % (0.0-3.0); HEMATOCRIT 32.7 % (36.0-47.0); HEMOGLOBIN 10.1 g/dl (12.0-15.5); LYMPH # 1.7 10^3/uL (1.5-5.0); LYMPH % 27.4 % (24.0-44.0); MEAN CORPUSCULAR HGB CONC 30.9 g/dl (32.0-36.5); MEAN CORPUSCULAR VOLUME 71.2 fl (80.0-96.0); MONO # 0.7 10^3/uL (0.0-0.8); MONO % 11.9 % (2.0-8.0); NEUTROPHILS # 3.1 10^3/uL (1.5-8.5); NEUTROPHILS % 51.1 % (36.0-66.0); PLATELET COUNT, AUTOMATED 153 10^3/uL (150-450); RED BLOOD COUNT 4.59 10^6/uL (4.00-5.40); WHITE BLOOD COUNT 6.1 10^3/uL (4.0-10.0)
[2023-08-11 06:29] LABS: BLOOD UREA NITROGEN 23 MG/DL (9-23); CALCIUM LEVEL 8.6 MG/DL (8.3-10.6); CARBON DIOXIDE LEVEL 23 MMOL/L (20-31); CHLORIDE LEVEL 106 MMOL/L (98-107); GLOMERULAR FILTRATION RATE > 60.0 (>39); GLUCOSE, FASTING 83 MG/DL (74-106); POTASSIUM SERUM 4.2 MMOL/L (3.5-5.1); SODIUM LEVEL 135 MMOL/L (136-145)
[2023-08-11 12:21] VITALS: BP 166/66; TEMP 97.5; O2SAT 100
[2023-08-11 20:00] VITALS: BP 139/73; TEMP 97.7; O2SAT 94
[2023-08-11] MEDS: PANTOPRAZOLE 40MG TAB (PROTONIX) PO SCH (21:10)
[2023-08-12 04:00] VITALS: BP 154/78; TEMP 97.3; O2SAT 93
[2023-08-12 06:08] LABS: BASO # 0.1 10^3/uL (0.0-0.2); EOS # 0.4 10^3/uL (0.0-0.5); EOS % 8.4 % (0.0-3.0); HEMATOCRIT 31.5 % (36.0-47.0); HEMOGLOBIN 9.8 g/dl (12.0-15.5); LYMPH # 1.6 10^3/uL (1.5-5.0); LYMPH % 30.9 % (24.0-44.0); MEAN CORPUSCULAR HGB CONC 31.1 g/dl (32.0-36.5); MEAN CORPUSCULAR VOLUME 70.8 fl (80.0-96.0); MONO # 0.7 10^3/uL (0.0-0.8); NEUTROPHILS # 2.3 10^3/uL (1.5-8.5); NEUTROPHILS % 45.5 % (36.0-66.0); PLATELET COUNT, AUTOMATED 133 10^3/uL (150-450); RED BLOOD COUNT 4.45 10^6/uL (4.00-5.40)
[2023-08-12 06:28] LABS: BLOOD UREA NITROGEN 27 MG/DL (9-23); CALCIUM LEVEL 8.3 MG/DL (8.3-10.6); CARBON DIOXIDE LEVEL 22 MMOL/L (20-31); CHLORIDE LEVEL 104 MMOL/L (98-107); CREATININE FOR GFR 0.72 MG/DL (0.55-1.30); GLOMERULAR FILTRATION RATE > 60.0 (>39); GLUCOSE, FASTING 187 MG/DL (74-106); POTASSIUM SERUM 4.3 MMOL/L (3.5-5.1); SODIUM LEVEL 132 MMOL/L (136-145)
[2023-08-12 12:00] VITALS: BP 161/76; TEMP 97.3; O2SAT 98
[2023-08-12 13:25] VITALS: BP 161/77
[2023-08-12] MEDS ORDERED: MIRA3350 PO (15:44)
[2023-08-12] MEDS ORDERED: SENO8.6T5 PO (15:44)
[2023-08-12] MEDS ORDERED: INSUDET SC (15:55)
== END 2023-08-12 17:58 | disposition home or self-care (01) | DRG 392 ==
LOC: M ED 10:33 → CANBEDREQ 16:51 → M ED INP 18:45 → M MSPAV 21:43 → OBSVTOIN 08-09 12:10
PROVIDERS: ADMIT Internal Medicine Nephrology; ATTEND Internal Medicine
DX: K59.00 Constipation, unspecified (principal); E87.1 Hypo-osmolality and hyponatremia; I50.32 Chronic diastolic (congestive) heart failure; I13.0 Hypertensive heart and chronic kidney disease with heart failure and stage 1 through stage 4 chronic kidney disease, or unspecified chronic kidney disease; E11.65 Type 2 diabetes mellitus with hyperglycemia; R53.1 Weakness; R42 Dizziness and giddiness; E87.5 Hyperkalemia; M79.7 Fibromyalgia; R29.6 Repeated falls; D63.8 Anemia in other chronic diseases classified elsewhere; E61.1 Iron deficiency; E11.42 Type 2 diabetes mellitus with diabetic polyneuropathy; K75.81 Nonalcoholic steatohepatitis (NASH); K74.60 Unspecified cirrhosis of liver; E78.5 Hyperlipidemia, unspecified; I25.10 Atherosclerotic heart disease of native coronary artery without angina pectoris; I27.20 Pulmonary hypertension, unspecified; K21.9 Gastro-esophageal reflux disease without esophagitis; E03.9 Hypothyroidism, unspecified; N18.30 Chronic kidney disease, stage 3 unspecified; E11.22 Type 2 diabetes mellitus with diabetic chronic kidney disease; M48.061 Spinal stenosis, lumbar region without neurogenic claudication; M47.812 Spondylosis without myelopathy or radiculopathy, cervical region; E53.8 Deficiency of other specified B group vitamins; E55.9 Vitamin D deficiency, unspecified; E86.0 Dehydration; G89.29 Other chronic pain; Z98.41 Cataract extraction status, right eye; Z98.42 Cataract extraction status, left eye; Z87.891 Personal history of nicotine dependence; Z79.4 Long term (current) use of insulin; Z79.890 Hormone replacement therapy; Z79.899 Other long term (current) drug therapy; Z88.1 Allergy status to other antibiotic agents; Z79.891 Long term (current) use of opiate analgesic

== ENCOUNTER → 2023-08-14 | Outpatient (CLI) | payer MEDICARE ==
[~2023-08-14] MED LIST changes: +MIRA3350 PO; +SENO8.6T5 PO
== END ==
LOC: M SOG 07:54
PROVIDERS: ATTEND Orthopaedic Surgery
DX: S42.201D Unspecified fracture of upper end of right humerus, subsequent encounter for fracture with routine healing (principal); S72.141D Displaced intertrochanteric fracture of right femur, subsequent encounter for closed fracture with routine healing

== ENCOUNTER 2023-08-28 18:09 | Emergency (ER) | payer MEDICARE ==
[~2023-08-28] VITALS: Ht 160 cm; Wt 67.7 kg
[2023-08-28] MEDS ORDERED: MORPHINE 10 MG/ML 1ML VIAL IM ONE (18:40)
[2023-08-28] MEDS: MORPHINE 2 MG/ML 1ML VIAL IM ONE (19:36)
[2023-08-28] MEDS: NORCO, ANEXSIA 5/325MG TABLET (HYDROcodone/ACETAMINOPHEN) PO ONE (20:48)
[2023-08-28] MEDS ORDERED: HYDR-3713 PO (21:12)
[2023-08-28 21:43] VITALS: BP 144/68; TEMP 97.4; O2SAT 95
[2023-08-28] MEDS: NORCO 5/325MG TABLET (HOME DOSE PACK) PO ONE (21:43)
[2023-08-29] MEDS ORDERED: ALLO100T PO (18:10)
== END 2023-08-28 21:45 | disposition home or self-care (01) ==
LOC: M ED 18:09 → EDBD 18:09 → M ED 21:45
DX: S52.045A Nondisplaced fracture of coronoid process of left ulna, initial encounter for closed fracture (principal); Y92.019 Unspecified place in single-family (private) house as the place of occurrence of the external cause; Y93.9 Activity, unspecified; Y99.9 Unspecified external cause status; Z88.8 Allergy status to other drugs, medicaments and biological substances; Z79.1 Long term (current) use of non-steroidal anti-inflammatories (NSAID); Z79.84 Long term (current) use of oral hypoglycemic drugs; Z79.899 Other long term (current) drug therapy

== ENCOUNTER 2023-08-29 12:37 | Inpatient (IN) | payer MEDICARE ==
[~2023-08-29] VITALS: Ht 162.6 cm; Wt 74.0 kg
[2023-08-29] VITALS (23 sets, daily range): BP systolic 142–202; BP diastolic 65–86; TEMP 98.3–98.5; O2SAT 98–100
[2023-08-29] MEDS ORDERED: ISOVUE-370 76% 100ML VIAL As Ordered ONE (13:15)
[2023-08-29] MEDS: NALOXONE INJ 0.4MG/1ML VIAL IV STA (13:17)
[2023-08-29] MEDS: NS 1,000 ML IV SCH (13:17)
[2023-08-29 13:24] LABS: BASO # 0.1 10^3/uL (0.0-0.2); BASO % 0.8 % (0.0-1.0); EOS # 0.3 10^3/uL (0.0-0.5); EOS % 3.5 % (0.0-3.0); HEMATOCRIT 35.4 % (36.0-47.0); HEMOGLOBIN 10.9 g/dl (12.0-15.5); LYMPH # 1.6 10^3/uL (1.5-5.0); LYMPH % 19.9 % (24.0-44.0); MEAN CORPUSCULAR HEMOGLOBIN 22.2 pg (27.0-33.0); MEAN CORPUSCULAR HGB CONC 30.8 g/dl (32.0-36.5); MONO # 0.9 10^3/uL (0.0-0.8); MONO % 11.6 % (2.0-8.0); NEUTROPHILS # 5.1 10^3/uL (1.5-8.5); NEUTROPHILS % 63.8 % (36.0-66.0); PLATELET COUNT, AUTOMATED 253 10^3/uL (150-450); RED BLOOD COUNT 4.92 10^6/uL (4.00-5.40); WHITE BLOOD COUNT 7.9 10^3/uL (4.0-10.0)
[2023-08-29 13:44] LABS: ETHYL ALCOHOL (ETHANOL) < 0.003 % (0.000-0.010)
[2023-08-29 13:46] LABS: ALBUMIN 3.2 G/DL (3.2-5.2); ALKALINE PHOSPHATASE 230 U/L (46-116); ALT/SGPT 47 U/L (7.0-40); AST/SGOT 39 U/L (<34); BILIRUBIN,DIRECT 0.3 MG/DL (<0.4); BILIRUBIN,TOTAL 0.9 MG/DL (0.3-1.2); CK-MB VALUE MASS 2.4 NG/ML (<3.6); INR 1.06; PARTIAL THROMBOPLASTIN TIME 27.1 SECONDS (24.8-34.2); PROTHROMBIN TIME 13.5 SECONDS (12.5-14.5); TOTAL PROTEIN 6.7 G/DL (5.7-8.2)
[2023-08-29 13:49] LABS: CPK CREATINE PHOSPHOKINASE 91 U/L (34-145); MB/CK RELATIVE INDEX 2.63 (< OR =4)
[2023-08-29 15:09] LABS: AMPHETAMINES LEVEL URINE NEGATIVE (NEGATIVE); BARBITURATES URINE NEGATIVE (NEGATIVE); BENZODIAZEPINES URINE NEGATIVE (NEGATIVE); COCAINE METABOLITE URINE NEGATIVE (NEGATIVE); METHADONE URINE NEGATIVE (NEGATIVE)
[2023-08-29 15:10] LABS: CANNABINOIDS URINE NEGATIVE (NEGATIVE); PHENCYCLIDINE URINE NEGATIVE (NEGATIVE)
[2023-08-29 15:12] LABS: CK-MB VALUE MASS 2.3 NG/ML (<3.6)
[2023-08-29 15:13] LABS: MB/CK RELATIVE INDEX 2.73 (< OR =4)
[2023-08-29 15:37] LABS: OPIATES URINE POSITIVE (NEGATIVE)
[2023-08-29] MEDS: HumuLIN R (REGULAR) INSULIN (NovoLIN R) **100U/ML** PER UNIT IV ONE (16:15)
[2023-08-29] MEDS ORDERED: MOM 30ML SUSPENSION UDC PO PRN (16:30)
[2023-08-29] MEDS ORDERED: MAALOX 30 ML SUSP *UDC PO PRN (16:30)
[2023-08-29] MEDS ORDERED: GLUCAGON INJ 1MG VIAL SC PRN (16:35)
[2023-08-29] MEDS ORDERED: GLUCOSE 4 GM CHEW PO PRN (16:35)
[2023-08-29] MEDS ORDERED: DEXTROSE 50% 50ML SYRINGE IV PRN (16:35)
[2023-08-29] MEDS ORDERED: SENNA 8.6 MG TAB (SENOKOT) PO PRN (16:40)
[2023-08-29] MEDS ORDERED: INSULIN LISPRO (NovoLOG) PER UNIT SC SCH ×2 (17:30→21:00)
[2023-08-29] MEDS ORDERED: LORazepam 2 MG/ML 1ML VIAL As Ordered ONE (17:38)
[2023-08-29] MEDS: LORazepam 2 MG/ML 1ML VIAL IV STA (17:41)
[2023-08-29] MEDS ORDERED: MIDAZOLAM INJ 2MG/2ML VIAL IV STA (17:43)
[2023-08-29] MEDS ORDERED: MIDAZOLAM 5MG/ML 1ML VIAL As Ordered ONE (17:45)
[2023-08-29] MEDS ORDERED: PROPOFOL 1,000 MG/100 ML VIAL As Ordered ONE (17:51)
[2023-08-29] MEDS ORDERED: ROCURONIUM BROMIDE 50MG/5ML VIAL ONE (18:00)
[2023-08-29] MEDS: propofoL 1,000 MG in IV 1 EA IV STA (18:00)
[2023-08-29] MEDS ORDERED: ALLO100T PO (18:10)
[2023-08-29] MEDS ORDERED: HOME MED LIST COMPLETE! XX SCH (18:15)
[2023-08-29] MEDS: MIDAZOLAM 5MG/ML 1ML VIAL IV STA (18:17)
[2023-08-29] MEDS: levETIRAcetam INJection 1,000 MG in D5W 100 ML IV ONE (18:19)
[2023-08-29 18:26] LABS: ABG BASE EXCESS -2.4 (-2.0-2.0); ABG HCO3 22.4 MMOL/L (22.0-26.0); ABG O2 SATURATION 96.8 % (95.0-99.0); ABG PARTIAL PRESSURE CO2 38.5 mmHg (35.0-45.0); ABG PARTIAL PRESSURE O2 95.4 mmHg (75.0-100.0); ABG STANDARD HCO3 22.5 MMOL/L. (22.0-26.0); ABG TOTAL CO2 23.5 MMOL/L (23.0-31.0); ABG pH (ARTERIAL) 7.382 UNITS (7.350-7.450)
[2023-08-29] MEDS: INSULIN LISPRO (NovoLOG) PER UNIT SC SCH (19:25)
[2023-08-29] MEDS: THIAMINE INJection 500 MG in NS 100 ML IV ONE (19:32)
[2023-08-29 19:40] LABS: VENOUS HCO3 20.5 MMOL/L (23.0-27.0); VENOUS O2 SATURATION 92.2 % (60.0-80.0); VENOUS PARTIAL PRESSURE CO2 31.6 mmHg (38.0-50.0); VENOUS PARTIAL PRESSURE O2 64.3 mmHg (30.0-50.0); VENOUS PH 7.429 UNITS (7.330-7.430); VENOUS STANDARD HCO3 21.8 MMOL/L; VENOUS TOTAL CO2 21.4 MMOL/L (24.0-28.0)
[2023-08-29] MEDS: MIDAZOLAM 100MG/100ML-0.9%NACL 100 MG in IV 1 EA IV SCH (19:56)
[2023-08-29 20:11] LABS: ALBUMIN 3.1 G/DL (3.2-5.2); ALKALINE PHOSPHATASE 213 U/L (46-116); ALT/SGPT 43 U/L (7.0-40); AST/SGOT 31 U/L (<34); BILIRUBIN,TOTAL 0.8 MG/DL (0.3-1.2); BLOOD UREA NITROGEN 29 MG/DL (9-23); CARBON DIOXIDE LEVEL 24 MMOL/L (20-31); CHLORIDE LEVEL 108 MMOL/L (98-107); CREATININE FOR GFR 0.62 MG/DL (0.55-1.30); GLOMERULAR FILTRATION RATE > 60.0 (>39); GLUCOSE, FASTING 361 MG/DL (74-106); MAGNESIUM LEVEL 1.7 MG/DL (1.8-2.4); PHOSPHORUS LEVEL 3.7 MG/DL (2.4-5.1); POTASSIUM SERUM 4.5 MMOL/L (3.5-5.1); SODIUM LEVEL 140 MMOL/L (136-145); TOTAL PROTEIN 6.6 G/DL (5.7-8.2)
[2023-08-29] MEDS: hydrALAZINE 20MG/ML 1ML VIAL IV PRN (20:48)
[2023-08-29] MEDS: DOCUSATE SODIUM 100MG CAPSULE PO SCH (21:00)
[2023-08-29] MEDS: ISOSORBIDE DIN. (ISORDIL) 30 MG TAB PO SCH (21:35)
[2023-08-29] MEDS: LEVEMIR (INSULIN DETEMIR) 1 UNITS/0.01ML SC SCH (21:35)
[2023-08-29] MEDS: ATORVASTATIN 20 MG TAB PO SCH (21:35)
[2023-08-29] MEDS: MAG SULF 1GM/100ML (MAG RUN) 1 GM in IV 1 EA IV ONE (21:37)
[2023-08-30] VITALS (36 sets, daily range): BP systolic 123–174; BP diastolic 56–89; TEMP 98.9–100.4; O2SAT 96–99
[2023-08-30] MEDS: propofoL 1,000 MG in IV 1 EA IV SCH (03:54)
[2023-08-30 04:49] LABS: BLOOD UREA NITROGEN 28 MG/DL (9-23); CALCIUM LEVEL 8.4 MG/DL (8.3-10.6); CARBON DIOXIDE LEVEL 25 MMOL/L (20-31); CHLORIDE LEVEL 113 MMOL/L (98-107); GLOMERULAR FILTRATION RATE > 60.0 (>39); GLUCOSE, FASTING 134 MG/DL (74-106); POTASSIUM SERUM 3.9 MMOL/L (3.5-5.1); SODIUM LEVEL 144 MMOL/L (136-145)
[2023-08-30] MEDS: LEVOTHYROXINE 112MCG TABLET (0.112MG) PO SCH (06:15)
[2023-08-30] MEDS: levETIRAcetam INJection 500 MG in D5W MINI-BAG PLUS 100 ML IV SCH (08:45)
[2023-08-30] MEDS: ENOXAPARIN 40MG/0.4ML SYRINGE (J1650 PER 10MG) SC SCH (08:48)
[2023-08-30] MEDS: allopurinoL 100 MG TAB PO SCH (08:49)
[2023-08-30] MEDS: MIRALAX *UNIT DOSE* 17GM PACKET PO SCH (08:50)
[2023-08-30] MEDS: FUROSEMIDE 40MG/4ML VIAL IV SCH (08:50)
[2023-08-30] MEDS: THIAMINE INJection 500 MG in NS 100 ML IV SCH (08:50)
[2023-08-30] MEDS: amLODIPine 5 MG TAB PO SCH (08:50)
[2023-08-30] MEDS: DULoxetine 30MG CAPSULE (CYMBALTA) PO SCH (08:51)
[2023-08-30] MEDS: ACETAMINOPHEN TAB 650MG DOSE (2X325MG) PO PRN (15:44)
[2023-08-30] MEDS: LEVEMIR (INSULIN DETEMIR) 1 UNITS/0.01ML SC SCH (20:10)
[2023-08-31] VITALS (37 sets, daily range): BP systolic 134–172; BP diastolic 61–81; TEMP 99–102; O2SAT 89–98
[2023-08-31] MEDS: IPRATROPIUM 0.5MG/ALBUTEROL 2.5MG INH SOL UD 3ML (DUONEB) NEB PRN (05:03)
[2023-08-31 05:53] LABS: BASO # 0.1 10^3/uL (0.0-0.2); BASO % 0.4 % (0.0-1.0); EOS # 0.2 10^3/uL (0.0-0.5); EOS % 1.8 % (0.0-3.0); HEMATOCRIT 31.6 % (36.0-47.0); HEMOGLOBIN 9.7 g/dl (12.0-15.5); LYMPH # 1.6 10^3/uL (1.5-5.0); LYMPH % 12.9 % (24.0-44.0); MEAN CORPUSCULAR HEMOGLOBIN 22.4 pg (27.0-33.0); MEAN CORPUSCULAR HGB CONC 30.7 g/dl (32.0-36.5); MONO # 1.7 10^3/uL (0.0-0.8); MONO % 13.5 % (2.0-8.0); NEUTROPHILS # 8.7 10^3/uL (1.5-8.5); NEUTROPHILS % 70.9 % (36.0-66.0); PLATELET COUNT, AUTOMATED 234 10^3/uL (150-450); RED BLOOD COUNT 4.33 10^6/uL (4.00-5.40); WHITE BLOOD COUNT 12.3 10^3/uL (4.0-10.0)
[2023-08-31] MEDS: LORazepam 2 MG/ML 1ML VIAL IV STA (06:07)
[2023-08-31 06:09] LABS: PROCALCITONIN 0.21 ng/ml
[2023-08-31 06:09] LABS: APPEARANCE, URINE HAZY (CLEAR); BACTERIA, URINE AUTO NEGATIVE (NEGATIVE); BILIRUBIN, URINE AUTO NEGATIVE (NEGATIVE); BLOOD, URINE BLOOD 1+ (NEGATIVE); COLOR, URINE YELLOW (YELLOW); GLUCOSE, URINE (UA) AUTO 1+ mg/dL (NEGATIVE); KETONE, URINE AUTO NEGATIVE (NEGATIVE); LEUKOCYTE ESTERASE, URINE AUTO NEGATIVE (NEGATIVE); MUCUS, URINE SMALL (NEGATIVE); NITRITE, URINE AUTO NEGATIVE (NEGATIVE); PROTEIN, URINE AUTO 3+ mg/dL (NEGATIVE); RBC, URINE AUTO 5 /HPF (0-3); SQUAMOUS EPITHELIAL CELL UR AU 2 /HPF (0-6); WBC, URINE AUTO 2 /HPF (0-3)
[2023-08-31 06:22] LABS: ALBUMIN 2.5 G/DL (3.2-5.2); ALKALINE PHOSPHATASE 168 U/L (46-116); ALT/SGPT 28 U/L (7.0-40); AST/SGOT 27 U/L (<34); BILIRUBIN,TOTAL 0.9 MG/DL (0.3-1.2); BLOOD UREA NITROGEN 29 MG/DL (9-23); CARBON DIOXIDE LEVEL 24 MMOL/L (20-31); CHLORIDE LEVEL 110 MMOL/L (98-107); GLOMERULAR FILTRATION RATE > 60.0 (>39); GLUCOSE, FASTING 240 MG/DL (74-106); MAGNESIUM LEVEL 1.8 MG/DL (1.8-2.4); PHOSPHORUS LEVEL 3.6 MG/DL (2.4-5.1); SODIUM LEVEL 141 MMOL/L (136-145); TOTAL PROTEIN 5.6 G/DL (5.7-8.2)
[2023-08-31] MEDS ORDERED: dexmedeTOMidine 200 MCG in IV 1 EA IV SCH (07:40)
[2023-08-31 08:03] LABS: CPK CREATINE PHOSPHOKINASE 41 U/L (34-145)
[2023-08-31] MEDS: PIPERACILLIN/TAZOBACTAM SOD 4.5 GM in D5W MINI-BAG PLUS 50 ML IV SCH (08:44)
[2023-08-31] MEDS ORDERED: PIPERACILLIN/TAZOBACTAM SOD 3.375 GM in D5W MINI-BAG PLUS 50 ML IV SCH (09:10)
[2023-08-31] MEDS: NORCO, ANEXSIA 5/325MG TABLET (HYDROcodone/ACETAMINOPHEN) FT PRN (11:46)
[2023-08-31] MEDS: VANCOMYCIN HCL 750 MG, VIAL MATE ADAPTER 1 EACH in D5W 250 ML IV ONE (21:05)
[2023-08-31] MEDS: VANCOMYCIN HCL 500 MG in D5W MINI-BAG PLUS 100 ML IV ONE (22:11)
[2023-09-01] VITALS (33 sets, daily range): BP systolic 129–168; BP diastolic 60–104; TEMP 98.6–101.2; O2SAT 88–100
[2023-09-01 04:44] LABS: HEMATOCRIT 29.5 % (36.0-47.0); MEAN CORPUSCULAR HEMOGLOBIN 22.5 pg (27.0-33.0); MEAN CORPUSCULAR HGB CONC 30.5 g/dl (32.0-36.5); MEAN CORPUSCULAR VOLUME 73.8 fl (80.0-96.0); PLATELET COUNT, AUTOMATED 190 10^3/uL (150-450); WHITE BLOOD COUNT 12.9 10^3/uL (4.0-10.0)
[2023-09-01 05:11] LABS: ALBUMIN 2.1 G/DL (3.2-5.2); ALKALINE PHOSPHATASE 177 U/L (46-116); ALT/SGPT 28 U/L (7.0-40); AST/SGOT 25 U/L (<34); BLOOD UREA NITROGEN 34 MG/DL (9-23); CALCIUM LEVEL 7.4 MG/DL (8.3-10.6); CARBON DIOXIDE LEVEL 25 MMOL/L (20-31); CHLORIDE LEVEL 104 MMOL/L (98-107); CREATININE FOR GFR 0.79 MG/DL (0.55-1.30); GLOMERULAR FILTRATION RATE > 60.0 (>39); GLUCOSE, FASTING 407 MG/DL (74-106); MAGNESIUM LEVEL 1.9 MG/DL (1.8-2.4); PHOSPHORUS LEVEL 2.9 MG/DL (2.4-5.1); POTASSIUM SERUM 3.8 MMOL/L (3.5-5.1); SODIUM LEVEL 134 MMOL/L (136-145); TOTAL PROTEIN 5.3 G/DL (5.7-8.2)
[2023-09-01] MEDS: VANCOMYCIN HCL 1,000 MG, VIAL MATE ADAPTER 1 EACH in D5W 250 ML IV SCH (09:10)
[2023-09-01] MEDS ORDERED: SENNA 8.6 MG TAB (SENOKOT) PO PRN (11:50)
[2023-09-01 16:25] LABS: MAGNESIUM LEVEL 1.9 MG/DL (1.8-2.4); POTASSIUM SERUM 3.6 MMOL/L (3.5-5.1)
[2023-09-01] MEDS: MOM 30ML SUSPENSION UDC PO SCH (19:15)
[2023-09-01] MEDS: LEVEMIR (INSULIN DETEMIR) 1 UNITS/0.01ML SC SCH (20:05)
[2023-09-02] VITALS (15 sets, daily range): BP systolic 105–168; BP diastolic 54–74; TEMP 97.4–98.8; O2SAT 94–100
[2023-09-02 08:43] LABS: BASO % 0.3 % (0.0-1.0); EOS # 0.4 10^3/uL (0.0-0.5); EOS % 3.7 % (0.0-3.0); HEMATOCRIT 27.4 % (36.0-47.0); HEMOGLOBIN 8.5 g/dl (12.0-15.5); LYMPH # 1.2 10^3/uL (1.5-5.0); LYMPH % 12.1 % (24.0-44.0); MEAN CORPUSCULAR HEMOGLOBIN 22.6 pg (27.0-33.0); MEAN CORPUSCULAR VOLUME 72.9 fl (80.0-96.0); MONO # 0.8 10^3/uL (0.0-0.8); MONO % 8.8 % (2.0-8.0); NEUTROPHILS # 7.1 10^3/uL (1.5-8.5); NEUTROPHILS % 74.6 % (36.0-66.0); PLATELET COUNT, AUTOMATED 174 10^3/uL (150-450); RED BLOOD COUNT 3.76 10^6/uL (4.00-5.40); WHITE BLOOD COUNT 9.6 10^3/uL (4.0-10.0)
[2023-09-02 09:18] LABS: ALKALINE PHOSPHATASE 186 U/L (46-116); ALT/SGPT 25 U/L (7.0-40); AST/SGOT 29 U/L (<34); BLOOD UREA NITROGEN 32 MG/DL (9-23); CALCIUM LEVEL 8.1 MG/DL (8.3-10.6); CARBON DIOXIDE LEVEL 26 MMOL/L (20-31); CHLORIDE LEVEL 106 MMOL/L (98-107); CREATININE FOR GFR 0.68 MG/DL (0.55-1.30); GLOMERULAR FILTRATION RATE > 60.0 (>39); GLUCOSE, FASTING 131 MG/DL (74-106); PHOSPHORUS LEVEL 2.6 MG/DL (2.4-5.1); POTASSIUM SERUM 3.4 MMOL/L (3.5-5.1); SODIUM LEVEL 140 MMOL/L (136-145); TOTAL PROTEIN 5.1 G/DL (5.7-8.2)
[2023-09-02 11:10] LABS: PROCALCITONIN 0.32 ng/ml
[2023-09-02] MEDS: KCL 10MEQ/100ML SWI (KRUN) 10 MEQ in IV 1 EA IV SCH (11:30)
[2023-09-02] MEDS ORDERED: PROHANCE 279.3MG/ML 15ML VIAL As Ordered ONE (21:14)
[2023-09-03 02:56] VITALS: BP 104/53; TEMP 97.9; O2SAT 96
[2023-09-03 08:53] LABS: VANCOMYCIN LEVEL TROUGH 19.5 UG/ML (10.0-20.0)
[2023-09-03 08:54] LABS: ALKALINE PHOSPHATASE 192 U/L (46-116); ALT/SGPT 24 U/L (7.0-40); AST/SGOT 28 U/L (<34); BILIRUBIN,TOTAL 0.9 MG/DL (0.3-1.2); BLOOD UREA NITROGEN 31 MG/DL (9-23); CALCIUM LEVEL 8.4 MG/DL (8.3-10.6); CARBON DIOXIDE LEVEL 28 MMOL/L (20-31); CHLORIDE LEVEL 108 MMOL/L (98-107); CREATININE FOR GFR 0.71 MG/DL (0.55-1.30); GLOMERULAR FILTRATION RATE > 60.0 (>39); GLUCOSE, FASTING 109 MG/DL (74-106); MAGNESIUM LEVEL 2.1 MG/DL (1.8-2.4); PHOSPHORUS LEVEL 2.8 MG/DL (2.4-5.1); POTASSIUM SERUM 3.7 MMOL/L (3.5-5.1); SODIUM LEVEL 139 MMOL/L (136-145); TOTAL PROTEIN 5.2 G/DL (5.7-8.2)
[2023-09-03] MEDS: VANCOMYCIN HCL 750 MG, VIAL MATE ADAPTER 1 EACH in D5W 250 ML IV SCH (10:18)
[2023-09-03 12:00] VITALS: BP 110/58; TEMP 97.7; O2SAT 99
[2023-09-03] MEDS: NORCO, ANEXSIA 5/325MG TABLET (HYDROcodone/ACETAMINOPHEN) PO PRN (18:21)
[2023-09-03 20:20] VITALS: BP 146/57; TEMP 97.9; O2SAT 97
[2023-09-03] MEDS ORDERED: GLUCAGON INJ 1MG VIAL SC PRN (20:45)
[2023-09-03] MEDS ORDERED: GLUCOSE 4 GM CHEW PO PRN (20:45)
[2023-09-03] MEDS ORDERED: DEXTROSE 50% 50ML SYRINGE IV PRN (20:45)
[2023-09-03] MEDS: INSULIN LISPRO (NovoLOG) PER UNIT SC SCH (21:00)
[2023-09-03] MEDS: BACTRIM 160MG/800MG DS TAB PO SCH (21:43)
[2023-09-03] MEDS: levETIRAcetam 250MG TABLET (KEPPRA) PO SCH (21:43)
[2023-09-04 04:32] VITALS: BP 145/66; TEMP 97.2; O2SAT 96
[2023-09-04 07:04] LABS: HEMATOCRIT 29.2 % (36.0-47.0); HEMOGLOBIN 9.1 g/dl (12.0-15.5); MEAN CORPUSCULAR HEMOGLOBIN 22.4 pg (27.0-33.0); MEAN CORPUSCULAR HGB CONC 31.2 g/dl (32.0-36.5); MEAN CORPUSCULAR VOLUME 71.9 fl (80.0-96.0); PLATELET COUNT, AUTOMATED 233 10^3/uL (150-450); RED BLOOD COUNT 4.06 10^6/uL (4.00-5.40); WHITE BLOOD COUNT 6.2 10^3/uL (4.0-10.0)
[2023-09-04] MEDS: INSULIN LISPRO (NovoLOG) PER UNIT SC SCH (08:10)
[2023-09-04 08:50] LABS: PERCENT SATURATION 7.2 % (13.2-45.0)
[2023-09-04 08:53] LABS: FERRITIN 47.2 NG/ML (7.3-270.7); FOLATE 18.47 NG/ML (>5.4)
[2023-09-04 12:10] VITALS: BP 140/65; TEMP 98.1; O2SAT 97
[2023-09-04] MEDS: FERRIC CARBOXYMALTOSE INJ 750 MG, VIAL MATE ADAPTER 1 EACH in NS 250 ML IV ONE (12:25)
[2023-09-04] MEDS: ENOXAPARIN 40MG/0.4ML SYRINGE (J1650 PER 10MG) SC SCH (12:31)
[2023-09-04 20:03] VITALS: BP 126/46; TEMP 98.1; O2SAT 96
[2023-09-05 04:23] VITALS: BP 154/69; TEMP 96.8; O2SAT 96
[2023-09-05] MEDS: TORSEMIDE 20 MG TAB PO SCH (08:44)
[2023-09-05] MEDS: LIDOCAINE 5% (LIDODERM) PATCH TD SCH ×2 (09:06→09:07)
[2023-09-05 12:18] VITALS: BP 146/63; TEMP 98.1; O2SAT 98
[2023-09-05 19:49] VITALS: BP 136/58; TEMP 98.1; O2SAT 97
[2023-09-06 04:21] VITALS: BP 124/49; TEMP 97.7; O2SAT 98
[2023-09-06 12:00] VITALS: BP 123/56; TEMP 97.9; O2SAT 99
[2023-09-06] MEDS: ENOXAPARIN 40MG/0.4ML SYRINGE (J1650 PER 10MG) SC ONE (16:55)
[2023-09-06 20:24] VITALS: BP 126/56; TEMP 98.1; O2SAT 96
[2023-09-07 05:09] VITALS: BP 126/55; TEMP 97.9; O2SAT 97
[2023-09-07] MEDS ORDERED: IPRATROPIUM 0.5MG/ALBUTEROL 2.5MG INH SOL UD 3ML (DUONEB) NEB PRN (07:45)
[2023-09-07] MEDS ORDERED: LEVEMIR (INSULIN DETEMIR) 1 UNITS/0.01ML SC SCH ×2 (09:00→21:00)
[2023-09-07] MEDS: LEVEMIR (INSULIN DETEMIR) 1 UNITS/0.01ML SC SCH ×2 (09:03→21:03)
[2023-09-07 12:00] VITALS: BP 133/55; TEMP 98.1; O2SAT 96
[2023-09-07] MEDS: ENOXAPARIN 40MG/0.4ML SYRINGE (J1650 PER 10MG) SC SCH (13:25)
[2023-09-07] MEDS: LEVEMIR (INSULIN DETEMIR) 1 UNITS/0.01ML SC ONE (13:26)
[2023-09-07 20:14] VITALS: BP 123/53; TEMP 97.9; O2SAT 97
[2023-09-08 03:42] VITALS: BP 158/65; TEMP 98.1; O2SAT 98
[2023-09-08] MEDS: LEVEMIR (INSULIN DETEMIR) 1 UNITS/0.01ML SC SCH (08:22)
[2023-09-08 12:15] VITALS: BP 126/48; TEMP 97.9; O2SAT 100
[2023-09-08 20:11] VITALS: BP 141/55; TEMP 97.9; O2SAT 99
[2023-09-09 03:37] VITALS: BP 149/86; TEMP 97.7; O2SAT 99
[2023-09-09 08:36] LABS: HEMATOCRIT 30.3 % (36.0-47.0); HEMOGLOBIN 9.2 g/dl (12.0-15.5); MEAN CORPUSCULAR HEMOGLOBIN 23.1 pg (27.0-33.0); MEAN CORPUSCULAR HGB CONC 30.4 g/dl (32.0-36.5); MEAN CORPUSCULAR VOLUME 75.9 fl (80.0-96.0); PLATELET COUNT, AUTOMATED 275 10^3/uL (150-450); RED BLOOD COUNT 3.99 10^6/uL (4.00-5.40); WHITE BLOOD COUNT 7.1 10^3/uL (4.0-10.0)
[2023-09-09 12:00] VITALS: BP 145/87; TEMP 97.9; O2SAT 100
[2023-09-09 20:38] VITALS: BP 151/74; TEMP 98.1; O2SAT 99
[2023-09-10 03:34] VITALS: BP 147/93; TEMP 97.9; O2SAT 99
[2023-09-10 12:00] VITALS: BP 130/58; TEMP 97.7; O2SAT 100
[2023-09-10 20:45] VITALS: BP 138/62; TEMP 98.1; O2SAT 98
[2023-09-11 04:59] VITALS: BP 141/61; TEMP 97.7; O2SAT 98
[2023-09-11 12:00] VITALS: BP 146/64; TEMP 97.9; O2SAT 99
[2023-09-11 19:50] VITALS: BP 111/44; TEMP 97.9; O2SAT 95
[2023-09-11 21:21] VITALS: BP 131/74
[2023-09-12 04:00] VITALS: BP 135/67; TEMP 97.7; O2SAT 96
[2023-09-12] MEDS ORDERED: DOXY-323 PO (07:26)
[2023-09-12] MEDS ORDERED: CEFD1CAP9 PO (07:26)
[2023-09-12] MEDS ORDERED: KEPP1TAB PO (07:26)
[2023-09-12] MEDS ORDERED: CYCL5TAB PO (09:33)
[2023-09-12] MEDS ORDERED: LIDO5TD TD (09:33)
== END 2023-09-12 12:00 | disposition home or self-care (01) | DRG 100 ==
LOC: EDBD 12:37 → M ED 12:37 → M ED INP 12:38 → M ICU 18:38 → OBSVTOIN 08-30 17:06 → M MS5PR 09-03 02:55
PROVIDERS: ADMIT Internal Medicine; ATTEND Internal Medicine
PROC: 0BH17EZ Insertion of Endotracheal Airway into Trachea, Via Natural or Artificial Opening (ICD-10-PCS; principal; 2023-08-29)
PROC: 5A1945Z Respiratory Ventilation, 24-96 Consecutive Hours (ICD-10-PCS; 2023-08-29)
DX: G40.411 Other generalized epilepsy and epileptic syndromes, intractable, with status epilepticus (principal); G93.41 Metabolic encephalopathy; J69.0 Pneumonitis due to inhalation of food and vomit; J96.01 Acute respiratory failure with hypoxia; J15.212 Pneumonia due to Methicillin resistant Staphylococcus aureus; I50.32 Chronic diastolic (congestive) heart failure; I13.0 Hypertensive heart and chronic kidney disease with heart failure and stage 1 through stage 4 chronic kidney disease, or unspecified chronic kidney disease; E87.1 Hypo-osmolality and hyponatremia; S22.42XA Multiple fractures of ribs, left side, initial encounter for closed fracture; G96.00 Cerebrospinal fluid leak, unspecified; S52.045A Nondisplaced fracture of coronoid process of left ulna, initial encounter for closed fracture; R53.83 Other fatigue; R29.6 Repeated falls; E11.42 Type 2 diabetes mellitus with diabetic polyneuropathy; E78.5 Hyperlipidemia, unspecified; E03.9 Hypothyroidism, unspecified; K74.69 Other cirrhosis of liver; I25.10 Atherosclerotic heart disease of native coronary artery without angina pectoris; N18.30 Chronic kidney disease, stage 3 unspecified; E11.22 Type 2 diabetes mellitus with diabetic chronic kidney disease; G89.29 Other chronic pain; M54.9 Dorsalgia, unspecified; D63.8 Anemia in other chronic diseases classified elsewhere; M79.7 Fibromyalgia; K21.9 Gastro-esophageal reflux disease without esophagitis; I27.20 Pulmonary hypertension, unspecified; M48.061 Spinal stenosis, lumbar region without neurogenic claudication; M47.812 Spondylosis without myelopathy or radiculopathy, cervical region; E53.8 Deficiency of other specified B group vitamins; M71.22 Synovial cyst of popliteal space [Baker], left knee; R53.81 Other malaise; R07.89 Other chest pain; R53.1 Weakness; E11.65 Type 2 diabetes mellitus with hyperglycemia; E83.42 Hypomagnesemia; E87.6 Hypokalemia; K75.81 Nonalcoholic steatohepatitis (NASH); D50.9 Iron deficiency anemia, unspecified; K59.00 Constipation, unspecified; Y99.9 Unspecified external cause status; M10.9 Gout, unspecified; Y93.9 Activity, unspecified; Y92.019 Unspecified place in single-family (private) house as the place of occurrence of the external cause; Z87.891 Personal history of nicotine dependence; Z98.41 Cataract extraction status, right eye; Z79.4 Long term (current) use of insulin; Z98.42 Cataract extraction status, left eye; Z79.899 Other long term (current) drug therapy; Z87.81 Personal history of (healed) traumatic fracture; Z90.49 Acquired absence of other specified parts of digestive tract; Z88.8 Allergy status to other drugs, medicaments and biological substances

== ENCOUNTER 2023-09-20 17:18 | Emergency (ER) | payer MEDICARE ==
[~2023-09-20] VITALS: Ht 160 cm; Wt 63.6 kg
[~2023-09-20 17:18] MED LIST changes: +ALLO100T PO; +CYCL5TAB PO; +DOXY-323 PO; +KEPP1TAB PO
[2023-09-20 17:34] VITALS: BP 174/76; TEMP 97.9
[2023-09-20 22:50] VITALS: O2SAT 99
[2023-09-20] MEDS: NORCO, ANEXSIA 5/325MG TABLET (HYDROcodone/ACETAMINOPHEN) PO ONE (22:50)
== END 2023-09-21 00:23 | disposition home or self-care (01) ==
LOC: M ED 17:18
DX: S80.01XA Contusion of right knee, initial encounter (principal); S80.02XA Contusion of left knee, initial encounter; S23.41XA Sprain of ribs, initial encounter; Y92.019 Unspecified place in single-family (private) house as the place of occurrence of the external cause; Y93.9 Activity, unspecified; Y99.9 Unspecified external cause status; W19.XXXA Unspecified fall, initial encounter; Z88.8 Allergy status to other drugs, medicaments and biological substances; Z79.1 Long term (current) use of non-steroidal anti-inflammatories (NSAID); Z79.2 Long term (current) use of antibiotics; Z79.84 Long term (current) use of oral hypoglycemic drugs; Z79.899 Other long term (current) drug therapy

== ENCOUNTER 2023-09-30 09:20 | Emergency (ER) | payer MEDICARE ==
[~2023-09-30] VITALS: Ht 160 cm; Wt 68.6 kg
[2023-09-30 11:00] LABS: VENOUS BASE EXCESS -1.8 (-2.0-2.0); VENOUS O2 SATURATION 98.1 % (60.0-80.0); VENOUS PARTIAL PRESSURE CO2 34.7 mmHg (38.0-50.0); VENOUS PARTIAL PRESSURE O2 108.8 mmHg (30.0-50.0); VENOUS TOTAL CO2 23.1 MMOL/L (24.0-28.0)
[2023-09-30 11:11] LABS: BASO # 0.1 10^3/uL (0.0-0.2); BASO % 1.4 % (0.0-1.0); EOS # 0.3 10^3/uL (0.0-0.5); EOS % 5.6 % (0.0-3.0); HEMATOCRIT 39.8 % (36.0-47.0); HEMOGLOBIN 12.9 g/dl (12.0-15.5); LYMPH # 1.3 10^3/uL (1.5-5.0); LYMPH % 23.3 % (24.0-44.0); MEAN CORPUSCULAR HEMOGLOBIN 26.5 pg (27.0-33.0); MEAN CORPUSCULAR HGB CONC 32.4 g/dl (32.0-36.5); MEAN CORPUSCULAR VOLUME 81.9 fl (80.0-96.0); MONO # 0.6 10^3/uL (0.0-0.8); MONO % 9.9 % (2.0-8.0); NEUTROPHILS # 3.4 10^3/uL (1.5-8.5); NEUTROPHILS % 59.6 % (36.0-66.0); PLATELET COUNT, AUTOMATED 174 10^3/uL (150-450); RED BLOOD COUNT 4.86 10^6/uL (4.00-5.40); WHITE BLOOD COUNT 5.8 10^3/uL (4.0-10.0)
[2023-09-30 11:37] LABS: ALBUMIN 3.1 G/DL (3.2-5.2); ALKALINE PHOSPHATASE 242 U/L (46-116); ALT/SGPT 37 U/L (7.0-40); AST/SGOT 51 U/L (<34); BILIRUBIN,DIRECT 0.3 MG/DL (<0.4); BILIRUBIN,TOTAL 0.9 MG/DL (0.3-1.2); BLOOD UREA NITROGEN 24 MG/DL (9-23); CALCIUM LEVEL 9.4 MG/DL (8.3-10.6); CARBON DIOXIDE LEVEL 23 MMOL/L (20-31); CHLORIDE LEVEL 110 MMOL/L (98-107); CREATININE FOR GFR 0.51 MG/DL (0.55-1.30); GLOMERULAR FILTRATION RATE > 60.0 (>39); GLUCOSE, FASTING 212 MG/DL (74-106); POTASSIUM SERUM 4.5 MMOL/L (3.5-5.1); SODIUM LEVEL 139 MMOL/L (136-145); TOTAL PROTEIN 6.4 G/DL (5.7-8.2)
[2023-09-30 11:40] LABS: THYROID STIMULATING HORMONE 1.871 uIU/ML (0.55-4.78)
[2023-09-30] MEDS ORDERED: GLUCOSE 4 GM CHEW PO PRN (13:25)
[2023-09-30] MEDS ORDERED: GLUCAGON INJ 1MG VIAL SC PRN (13:25)
[2023-09-30] MEDS ORDERED: ACETAMINOPHEN TAB 650MG DOSE (2X325MG) PO PRN (13:25)
[2023-09-30] MEDS ORDERED: MAALOX 30 ML SUSP *UDC PO PRN (13:25)
[2023-09-30] MEDS ORDERED: MOM 30ML SUSPENSION UDC PO PRN (13:25)
[2023-09-30] MEDS ORDERED: DEXTROSE 50% 50ML SYRINGE IV PRN (13:25)
[2023-09-30] MEDS ORDERED: HEPARIN SOD (PORCINE) 5000UNITS/ML 1ML VIAL/SYRINGE SQ SCH (13:40)
[2023-09-30] MEDS: LACTULOSE 20GM/30ML SYRUP UDC PO ONE (13:46)
[2023-09-30] MEDS: PANTOPRAZOLE 40MG VIAL IV SCH (14:18)
[2023-09-30] MEDS ORDERED: CONS10SO3 PO (15:11)
[2023-09-30] MEDS ORDERED: LEVE500T5 PO (15:11)
[2023-09-30] MEDS ORDERED: CALC-218 PO (15:11)
[2023-09-30] MEDS ORDERED: TRES1INJ INJ (15:11)
[2023-09-30] MEDS ORDERED: HOME MED LIST COMPLETE! XX SCH (15:15)
[2023-09-30 15:56] VITALS: BP 144/69; TEMP 97; O2SAT 99
[2023-09-30] MEDS ORDERED: LACTULOSE 20GM/30ML SYRUP UDC PO SCH (17:00)
[2023-09-30] MEDS ORDERED: INSULIN LISPRO (NovoLOG) PER UNIT SC SCH ×2 (17:30→21:00)
[2023-09-30] MEDS ORDERED: DOCUSATE SODIUM 100MG CAPSULE PO SCH (21:00)
[2023-09-30 22:12] LABS: PROCALCITONIN 0.07 ng/ml
== END 2023-09-30 16:00 | disposition short-term general hospital (02) ==
LOC: M ED 09:20 → UNDOADMOB 09:21 → M ED INP 09:21 → M ED 16:00
DX: S06.5X0A Traumatic subdural hemorrhage without loss of consciousness, initial encounter (principal); K76.82 Hepatic encephalopathy; Y92.9 Unspecified place or not applicable; Y93.9 Activity, unspecified; Y99.9 Unspecified external cause status; I25.2 Old myocardial infarction; I11.0 Hypertensive heart disease with heart failure; I25.119 Atherosclerotic heart disease of native coronary artery with unspecified angina pectoris; N18.30 Chronic kidney disease, stage 3 unspecified; D50.9 Iron deficiency anemia, unspecified; Z88.8 Allergy status to other drugs, medicaments and biological substances; Z79.4 Long term (current) use of insulin; Z79.84 Long term (current) use of oral hypoglycemic drugs; Z79.899 Other long term (current) drug therapy
CPT/HCPCS: 70450; 71045; 80048; 80076; 81001; 82140; 82803; 83605; 84145; 84443; 85025; 87040; 87088; 87186; 93005; 93041; 94760; 96374; 99285; J2470

== ENCOUNTER → 2023-10-17 | Outpatient (CLI) | payer MEDICARE ==
[~2023-10-17] MED LIST changes: +CALC-218 PO; +CONS10SO3 PO; +LEVE500T5 PO; +TRES1INJ INJ
== END ==
LOC: M RAD 10:30
PROVIDERS: ATTEND Student in an Organized Health Care Education/Training Program
DX: S06.5X0D Traumatic subdural hemorrhage without loss of consciousness, subsequent encounter (principal)

== ENCOUNTER → 2023-10-24 | Outpatient (CLI) | payer MEDICARE | LOC: M SOG 07:55 | PROVIDERS: ATTEND Physician Assistant | DX: Z53.9 Procedure and treatment not carried out, unspecified reason (principal) ==

== ENCOUNTER → 2023-10-31 | Outpatient (CLI) | payer MEDICARE | LOC: M SOG 07:59 | PROVIDERS: ATTEND Physician Assistant | DX: M25.522 Pain in left elbow (principal) ==

== ENCOUNTER → 2023-11-25 | Outpatient (CLI) | payer MEDICARE ==
[2023-11-25 13:01] LABS: C REACTIVE PROTEIN QUANTITATIV < 0.40 MG/DL (<1.0)
[2023-11-25 13:02] LABS: IRON (FE) 57 UG/DL (50-170); PERCENT SATURATION 15.8 % (13.2-45.0); TOTAL IRON BINDING CAPACITY 361 UG/DL (250-425)
[2023-11-25 13:03] LABS: FERRITIN 21.7 NG/ML (7.3-270.7)
[2023-11-25 13:04] LABS: THYROID STIMULATING HORMONE 1.095 uIU/ML (0.55-4.78); TOTAL 25(OH) VITAMIN D 28.3 NG/ML (20.0-100.0)
[2023-11-25 13:05] LABS: VITAMIN B12 LEVEL 949 PG/ML (211-911)
[2023-11-25 13:07] LABS: BASO # 0.1 10^3/uL (0.0-0.2); BASO % 1.4 % (0.0-1.0); EOS # 0.4 10^3/uL (0.0-0.5); EOS % 6.6 % (0.0-3.0); HEMATOCRIT 36.2 % (36.0-47.0); HEMOGLOBIN 11.6 g/dl (12.0-15.5); LYMPH # 1.8 10^3/uL (1.5-5.0); LYMPH % 28.7 % (24.0-44.0); MEAN CORPUSCULAR HEMOGLOBIN 29.1 pg (27.0-33.0); MONO # 0.9 10^3/uL (0.0-0.8); MONO % 13.9 % (2.0-8.0); NEUTROPHILS # 3.1 10^3/uL (1.5-8.5); NEUTROPHILS % 49.1 % (36.0-66.0); PLATELET COUNT, AUTOMATED 203 10^3/uL (150-450); RED BLOOD COUNT 3.98 10^6/uL (4.00-5.40); WHITE BLOOD COUNT 6.4 10^3/uL (4.0-10.0)
[2023-11-25 13:10] LABS: HEMOGLOBIN A1c 8.6 % (4.0-6.0)
== END ==
LOC: M PLALAB 09:27
PROVIDERS: ATTEND Internal Medicine Hematology
DX: D50.0 Iron deficiency anemia secondary to blood loss (chronic) (principal); I10 Essential (primary) hypertension; E11.8 Type 2 diabetes mellitus with unspecified complications; Z79.899 Other long term (current) drug therapy

== ENCOUNTER → 2023-12-05 | Outpatient (CLI) | payer MEDICARE ==
[~2023-12-05] MED LIST changes: -DOXY-323 PO; +DOXY-441 PO
== END ==
LOC: M SOG 07:35
PROVIDERS: ATTEND Physician Assistant
DX: S42.201D Unspecified fracture of upper end of right humerus, subsequent encounter for fracture with routine healing (principal)

== ENCOUNTER → 2024-01-10 | Outpatient (CLI) | payer MEDICARE ==
[~2024-01-10] MED LIST changes: -CYCL5TAB PO; +CYCL5TAB4 PO; -LACT10SO3 PO; +LACT10SO94 PO; +METF-1157 PO; -METF-818 PO
== END ==
LOC: M SOG 07:56
PROVIDERS: ATTEND Physician Assistant
DX: M25.522 Pain in left elbow (principal)

== ENCOUNTER → 2024-01-30 | Outpatient (CLI) | payer MEDICARE | LOC: M SOG 07:52 | PROVIDERS: ATTEND Physician Assistant | DX: M19.022 Primary osteoarthritis, left elbow (principal) ==

== ENCOUNTER → 2024-03-13 | Outpatient (CLI) | payer MEDICAID, MEDICARE ==
[2024-03-13 16:11] LABS: APPEARANCE, URINE HAZY (CLEAR); BACTERIA, URINE AUTO NEGATIVE (NEGATIVE); BILIRUBIN, URINE AUTO NEGATIVE (NEGATIVE); BLOOD, URINE BLOOD NEGATIVE (NEGATIVE); COLOR, URINE YELLOW (YELLOW); GLUCOSE, URINE (UA) AUTO NEGATIVE (NEGATIVE); KETONE, URINE AUTO NEGATIVE (NEGATIVE); LEUKOCYTE ESTERASE, URINE AUTO NEGATIVE (NEGATIVE); MUCUS, URINE SMALL (NEGATIVE); NITRITE, URINE AUTO NEGATIVE (NEGATIVE); PROTEIN, URINE AUTO 2+ mg/dL (NEGATIVE); RBC, URINE AUTO 1 /HPF (0-3); SPECIFIC GRAVITY URINE AUTO 1.012 (1.002-1.035); SQUAMOUS EPITHELIAL CELL UR AU 1 /HPF (0-6); WBC, URINE AUTO 1 /HPF (0-3)
[2024-03-13 16:13] LABS: HEMATOCRIT 36.6 % (36.0-47.0); HEMOGLOBIN 11.7 g/dl (12.0-15.5); MEAN CORPUSCULAR VOLUME 87.6 fl (80.0-96.0); PLATELET COUNT, AUTOMATED 196 10^3/uL (150-450); RED BLOOD COUNT 4.18 10^6/uL (4.00-5.40)
[2024-03-13 16:42] LABS: FERRITIN 18.9 NG/ML (7.3-270.7)
[2024-03-13 16:43] LABS: THYROID STIMULATING HORMONE 1.362 uIU/ML (0.55-4.78)
[2024-03-13 16:44] LABS: FREE T4 1.43 NG/DL (0.89-1.76)
[2024-03-13 17:08] LABS: HEMOGLOBIN A1c 6.4 % (4.0-6.0)
[2024-03-16 14:44] LABS: LEAD BLOOD ADULT 1.1 mcg/dL (<3.5)
== END ==
LOC: M PLALAB 12:11
PROVIDERS: ATTEND Physician Assistant Medical
DX: I50.32 Chronic diastolic (congestive) heart failure (principal); K76.6 Portal hypertension; E03.9 Hypothyroidism, unspecified; E11.8 Type 2 diabetes mellitus with unspecified complications; D50.9 Iron deficiency anemia, unspecified; R41.0 Disorientation, unspecified; R82.90 Unspecified abnormal findings in urine; R41.3 Other amnesia

== ENCOUNTER 2024-09-03 08:55 | Outpatient (CLI) | payer MEDICAID, MEDICARE ==
[~2024-09-03] VITALS: Ht 160 cm; Wt 70.9 kg
[~2024-09-03 08:55] MED LIST changes: +ALBUTEROL SULFATE 2.5 MG/0.5 ML INH CONCENTRATE NEB SOLN INH PRN; +EPINEPHrine INJ 1 MG/ML 1ML AMP IM PRN; +ISOS-18 PO; -ISOS30TAB PO; +diphenhydrAMINE 50 MG/ML VIAL IV PRN
[2024-09-03 09:05] VITALS: BP 147/70; O2SAT 100
[2024-09-03] MEDS: IRON SUCROSE 500 MG in NS 250 ML OVER 4 HRS IV ONE (10:01)
[2024-09-03 11:00] VITALS: BP 140/86; O2SAT 96
[2024-09-03 12:00] VITALS: BP 142/80; O2SAT 98
[2024-09-03 13:00] VITALS: BP 133/88; O2SAT 99
== END 2024-09-03 14:45 ==
LOC: M INFU 08:55
PROVIDERS: ATTEND Student in an Organized Health Care Education/Training Program
DX: D50.9 Iron deficiency anemia, unspecified (principal); Z88.8 Allergy status to other drugs, medicaments and biological substances
CPT/HCPCS: 96365; 96366; J1756

== ENCOUNTER 2024-09-05 22:23 | Emergency (ER) | payer MEDICARE ==
[~2024-09-05] VITALS: Ht 162.6 cm; Wt 63.6 kg
[~2024-09-05 22:23] MED LIST changes: -ALBUTEROL SULFATE 2.5 MG/0.5 ML INH CONCENTRATE NEB SOLN INH PRN; -EPINEPHrine INJ 1 MG/ML 1ML AMP IM PRN; -diphenhydrAMINE 50 MG/ML VIAL IV PRN
[2024-09-05] MEDS: DEXTROSE 50% 50 ML SYRINGE IV STA (22:38)
[2024-09-05 22:45] VITALS: TEMP 97.5
[2024-09-05] MEDS: D10W 1,000 ML IV SCH (23:03)
[2024-09-05 23:11] LABS: BASO # 0.1 10^3/uL (0.0-0.2); BASO % 1.2 % (0.0-1.0); EOS # 0.3 10^3/uL (0.0-0.5); EOS % 4.6 % (0.0-3.0); LYMPH # 1.3 10^3/uL (1.5-5.0); LYMPH % 21.5 % (24.0-44.0); MONO # 0.9 10^3/uL (0.0-0.8); MONO % 14.5 % (2.0-8.0); NEUTROPHILS # 3.5 10^3/uL (1.5-8.5); NEUTROPHILS % 58.0 % (36.0-66.0); PLATELET COUNT, AUTOMATED 108 10^3/uL (150-450)
[2024-09-05 23:34] LABS: ETHYL ALCOHOL (ETHANOL) 0.004 % (0.000-0.010)
[2024-09-05 23:35] LABS: ALT/SGPT 31 U/L (7.0-40); AST/SGOT 39 U/L (<34); CALCIUM LEVEL 9.1 MG/DL (8.3-10.6); CARBON DIOXIDE LEVEL 23 MMOL/L (20-31); CHLORIDE LEVEL 108 MMOL/L (98-107); CPK CREATINE PHOSPHOKINASE 71 U/L (34-145); CREATININE FOR GFR 0.85 MG/DL (0.55-1.30); GLOMERULAR FILTRATION RATE 72.8 (>39); POTASSIUM SERUM 3.8 MMOL/L (3.5-5.1); SALICYLATE LEVEL < 3.0 MG/DL (<30); SODIUM LEVEL 143 MMOL/L (136-145)
[2024-09-06 06:45] VITALS: O2SAT 98
[2024-09-06 06:46] VITALS: BP 180/77
== END 2024-09-06 10:25 | disposition home or self-care (01) ==
LOC: EDBD 22:23 → M ED 22:23
DX: E11.649 Type 2 diabetes mellitus with hypoglycemia without coma (principal); T38.3X1A Poisoning by insulin and oral hypoglycemic [antidiabetic] drugs, accidental (unintentional), initial encounter; I44.4 Left anterior fascicular block; I45.81 Long QT syndrome; I50.22 Chronic systolic (congestive) heart failure; I11.0 Hypertensive heart disease with heart failure; E78.5 Hyperlipidemia, unspecified; G40.909 Epilepsy, unspecified, not intractable, without status epilepticus; Z88.8 Allergy status to other drugs, medicaments and biological substances; Z79.4 Long term (current) use of insulin; Z79.84 Long term (current) use of oral hypoglycemic drugs; Z79.899 Other long term (current) drug therapy

== ENCOUNTER 2024-09-17 09:36 | Outpatient (CLI) | payer MEDICAID, MEDICARE ==
[~2024-09-17 09:36] MED LIST changes: +ALBUTEROL SULFATE 2.5 MG/0.5 ML INH CONCENTRATE NEB SOLN INH PRN; +EPINEPHrine INJ 1 MG/ML 1ML AMP IM PRN; +HYDR12.510 PO; -HYDR12CA PO; +SENN-225 PO; -SENO8.6T5 PO; +diphenhydrAMINE 50 MG/ML VIAL IV PRN
[2024-09-17 10:30] VITALS: BP 130/71; O2SAT 94
[2024-09-17] MEDS: IRON SUCROSE 500 MG in NS 250 ML IV ONE (10:36)
[2024-09-17 11:45] VITALS: BP 133/80; O2SAT 98
[2024-09-17 12:45] VITALS: BP 147/81; O2SAT 99
[2024-09-17 14:40] VITALS: BP 162/68; O2SAT 98
== END 2024-09-17 15:00 ==
LOC: M INFU 09:36
PROVIDERS: ATTEND Student in an Organized Health Care Education/Training Program
DX: D50.9 Iron deficiency anemia, unspecified (principal); Z88.8 Allergy status to other drugs, medicaments and biological substances
CPT/HCPCS: 96365; 96366; J1756

== ENCOUNTER → 2024-11-04 | Outpatient (CLI) | payer MEDICAID, MEDICARE ==
[~2024-11-04] MED LIST changes: -ALBUTEROL SULFATE 2.5 MG/0.5 ML INH CONCENTRATE NEB SOLN INH PRN; -EPINEPHrine INJ 1 MG/ML 1ML AMP IM PRN; -diphenhydrAMINE 50 MG/ML VIAL IV PRN
[2024-11-04 18:30] LABS: PLATELET COUNT, AUTOMATED 152 10^3/uL (150-450)
[2024-11-04 18:50] LABS: ALT/SGPT 38.0 U/L (7.0-40); AST/SGOT 47.0 U/L (<34); CALCIUM LEVEL 9.9 MG/DL (8.3-10.6); CARBON DIOXIDE LEVEL 26.0 MMOL/L (20-31); CHLORIDE LEVEL 105.0 MMOL/L (98-107); CHOLESTEROL LEVEL 158.0 MG/DL (<200); CHOLESTEROL RISK RATIO 3.02 (<5); CREATININE FOR GFR 1.18 MG/DL (0.55-1.30); GLOMERULAR FILTRATION RATE 49.1 (>39); LDL CHOLESTEROL 70.3 MG/DL (<100); NON-HDL-C 105.7 MG/DL; POTASSIUM SERUM 4.6 MMOL/L (3.5-5.1); SODIUM LEVEL 145.0 MMOL/L (136-145); TRIGLYCERIDES LEVEL 177.0 MG/DL (<150)
[2024-11-04 18:55] LABS: FREE T4 1.53 NG/DL (0.89-1.76)
[2024-11-04 19:33] LABS: ESTIMATED AVERAGE GLUCOSE 183.0 MG/DL (60-110)
== END ==
LOC: M PLALAB 16:49
DX: E78.2 Mixed hyperlipidemia (principal); E03.9 Hypothyroidism, unspecified; E11.8 Type 2 diabetes mellitus with unspecified complications; I10 Essential (primary) hypertension

== ENCOUNTER 2024-12-18 06:09 | Observation (INO) | payer MEDICAID, MEDICARE ==
[~2024-12-18] VITALS: Ht 162.6 cm; Wt 70.5 kg
[2024-12-18 07:21] LABS: BASO # 0.1 10^3/uL (0.0-0.2); BASO % 1.4 % (0.0-1.0); EOS # 0.4 10^3/uL (0.0-0.5); EOS % 6.5 % (0.0-3.0); LYMPH # 1.8 10^3/uL (1.5-5.0); LYMPH % 31.1 % (24.0-44.0); MONO # 0.6 10^3/uL (0.0-0.8); MONO % 11.1 % (2.0-8.0); NEUTROPHILS # 2.8 10^3/uL (1.5-8.5); NEUTROPHILS % 49.5 % (36.0-66.0); PLATELET COUNT, AUTOMATED 110 10^3/uL (150-450)
[2024-12-18 07:35] LABS: INR 1.03
[2024-12-18 07:42] LABS: ETHYL ALCOHOL (ETHANOL) < 0.003 % (0.000-0.010)
[2024-12-18 07:43] LABS: CALCIUM LEVEL 8.9 MG/DL (8.3-10.6); CARBON DIOXIDE LEVEL 23 MMOL/L (20-31); CHLORIDE LEVEL 111 MMOL/L (98-107); CK-MB VALUE MASS 3.8 NG/ML (<3.6); CPK CREATINE PHOSPHOKINASE 83 U/L (34-145); CREATININE FOR GFR 0.48 MG/DL (0.55-1.30); GLOMERULAR FILTRATION RATE > 90.0 (>39); MB/CK RELATIVE INDEX 4.57 (< OR =4); POTASSIUM SERUM 3.6 MMOL/L (3.5-5.1); SODIUM LEVEL 145 MMOL/L (136-145)
[2024-12-18] MEDS ORDERED: ISOVUE-370 76% 100 ML VIAL As Ordered ONE (08:08)
[2024-12-18 08:47] LABS: ALT/SGPT 33 U/L (7.0-40); AST/SGOT 37 U/L (<34)
[2024-12-18 09:31] LABS: CK-MB VALUE MASS 3.8 NG/ML (<3.6)
[2024-12-18 09:35] LABS: CPK CREATINE PHOSPHOKINASE 76.0 U/L (34-145); MB/CK RELATIVE INDEX 5.0 (< OR =4)
[2024-12-18 09:55] LABS: KETONE, URINE AUTO RFX NEGATIVE (NEGATIVE); LEUKOCYTE ESTERASE UR AUTO RFX NEGATIVE (NEGATIVE); NITRITE, URINE AUTO RFX NEGATIVE (NEGATIVE); RBC, URINE AUTO RFX 2 /HPF (0-3); SQUAM EPITHELIAL CELL UR AURFX 0 /HPF (0-6); WBC, URINE AUTO RFX 0 /HPF (0-3)
[2024-12-18 10:20] LABS: AMPHETAMINES LEVEL URINE NEGATIVE (NEGATIVE); BARBITURATES URINE NEGATIVE (NEGATIVE); BENZODIAZEPINES URINE NEGATIVE (NEGATIVE); CANNABINOIDS URINE NEGATIVE (NEGATIVE); COCAINE METABOLITE URINE NEGATIVE (NEGATIVE); METHADONE URINE NEGATIVE (NEGATIVE); OPIATES URINE NEGATIVE (NEGATIVE); PHENCYCLIDINE URINE NEGATIVE (NEGATIVE)
[2024-12-18] MEDS ORDERED: JARD1TAB3 PO (10:48)
[2024-12-18] MEDS ORDERED: MEMA10TA PO (10:48)
[2024-12-18] MEDS ORDERED: HYDR5TAB PO (10:48)
[2024-12-18] MEDS ORDERED: CELE1CAP99 PO (10:48)
[2024-12-18] MEDS ORDERED: INSU100V6 SQ (10:48)
[2024-12-18] MEDS ORDERED: ACAR25TA2 PO (10:48)
[2024-12-18] MEDS ORDERED: PROP20TA72 PO (10:48)
[2024-12-18] MEDS ORDERED: FERR325T18 PO (10:48)
[2024-12-18] MEDS ORDERED: TIRZ2.5P SQ (10:48)
[2024-12-18] MEDS ORDERED: LANTINJ4 SC (10:48)
[2024-12-18] MEDS ORDERED: HOME MED LIST COMPLETE! XX SCH (10:50)
[2024-12-18 11:13] LABS: CK-MB VALUE MASS 4.3 NG/ML (<3.6)
[2024-12-18 11:15] LABS: CPK CREATINE PHOSPHOKINASE 82.0 U/L (34-145); MB/CK RELATIVE INDEX 5.24 (< OR =4)
[2024-12-18] MEDS ORDERED: ACETAMINOPHEN 325 MG TAB PO PRN (15:15)
[2024-12-18] MEDS ORDERED: traMADol 50 MG TAB PO PRN (15:20)
[2024-12-18] MEDS ORDERED: GLUCOSE 4 GM CHEW PO PRN (15:30)
[2024-12-18] MEDS ORDERED: DEXTROSE 50% 50 ML SYRINGE IV PRN (15:30)
[2024-12-18] MEDS ORDERED: GLUCAGON INJ 1 MG VIAL SC PRN (15:30)
[2024-12-18] MEDS: BISACODYL 10 MG SUPP PR ONE (15:30)
[2024-12-18] MEDS: TORSEMIDE 20 MG TAB PO SCH (16:34)
[2024-12-18] MEDS: SPIRONOLACTONE 25 MG TAB PO SCH (16:34)
[2024-12-18] MEDS: KETOROLAC 30 MG/ML 1 ML VIAL IV SCH (16:35)
[2024-12-18] MEDS: ISOSORBIDE DINITRATE 30 MG PO SCH (16:59)
[2024-12-18] MEDS: LACTULOSE 20 GM/30 ML SYRUP UDC PO SCH (17:01)
[2024-12-18] MEDS: INSULIN LISPRO (NovoLOG) PER UNIT SC SCH (18:53)
[2024-12-18 20:25] VITALS: BP 148/72; TEMP 97.9; O2SAT 99
[2024-12-18] MEDS: PANTOPRAZOLE 40MG TAB PO SCH (21:56)
[2024-12-18] MEDS: MEMANTINE 5 MG TABLET PO SCH (21:56)
[2024-12-18] MEDS: ATORVASTATIN 20 MG TAB PO SCH (21:56)
[2024-12-18] MEDS: SENNOSIDES/DOCUSATE SODIUM 8.6 MG/50MG TAB PO SCH (21:56)
[2024-12-18] MEDS: BISACODYL 10 MG SUPP PR SCH (21:56)
[2024-12-18] MEDS: LanTUS (INSULIN GLARGINE INJ) 1 UNITS/0.01 ML SC SCH (21:57)
[2024-12-18 22:23] VITALS: BP_SYST 146; BP_SYST 147; BP_SYST 84; BP_DIAS 62; BP_DIAS 67; BP_DIAS 68
[2024-12-19 04:20] VITALS: BP 152/68; TEMP 97.7; O2SAT 96
[2024-12-19] MEDS: LEVOTHYROXINE 112 MCG TABLET (0.112 MG) PO SCH (05:01)
[2024-12-19 08:28] LABS: BASO # 0.1 10^3/uL (0.0-0.2); BASO % 1.4 % (0.0-1.0); EOS # 0.4 10^3/uL (0.0-0.5); EOS % 6.8 % (0.0-3.0); LYMPH # 1.6 10^3/uL (1.5-5.0); LYMPH % 28.5 % (24.0-44.0); MONO # 0.6 10^3/uL (0.0-0.8); MONO % 11.2 % (2.0-8.0); NEUTROPHILS # 3.0 10^3/uL (1.5-8.5); NEUTROPHILS % 51.9 % (36.0-66.0); PLATELET COUNT, AUTOMATED 114 10^3/uL (150-450)
[2024-12-19 08:58] LABS: CALCIUM LEVEL 8.7 MG/DL (8.3-10.6); CARBON DIOXIDE LEVEL 26.0 MMOL/L (20-31); CHLORIDE LEVEL 109.0 MMOL/L (98-107); CREATININE FOR GFR 0.76 MG/DL (0.55-1.30); GLOMERULAR FILTRATION RATE 83.2 (>39); POTASSIUM SERUM 3.9 MMOL/L (3.5-5.1); SODIUM LEVEL 146.0 MMOL/L (136-145)
[2024-12-19 11:24] VITALS: BP 144/58; TEMP 98.1; O2SAT 100
[2024-12-19 12:00] VITALS: BP_SYST 140; BP_SYST 144; BP_SYST 99; BP_DIAS 57; BP_DIAS 58; BP_DIAS 61
[2024-12-19] MEDS ORDERED: BISACODYL 10 MG SUPP PR PRN (13:35)
[2024-12-19 19:30] VITALS: BP 152/64; TEMP 98.2; O2SAT 100
[2024-12-19] MEDS: LACTULOSE 20 GM/30 ML SYRUP UDC PO SCH (21:10)
[2024-12-20 05:02] VITALS: BP 156/60; TEMP 98.1; O2SAT 98
[2024-12-20 08:25] LABS: BASO # 0.1 10^3/uL (0.0-0.2); BASO % 1.2 % (0.0-1.0); EOS # 0.4 10^3/uL (0.0-0.5); EOS % 7.3 % (0.0-3.0); LYMPH # 1.6 10^3/uL (1.5-5.0); LYMPH % 32.5 % (24.0-44.0); MONO # 0.6 10^3/uL (0.0-0.8); MONO % 12.1 % (2.0-8.0); NEUTROPHILS # 2.4 10^3/uL (1.5-8.5); NEUTROPHILS % 46.7 % (36.0-66.0); PLATELET COUNT, AUTOMATED 100 10^3/uL (150-450)
[2024-12-20 08:50] LABS: CALCIUM LEVEL 8.5 MG/DL (8.3-10.6); CARBON DIOXIDE LEVEL 27.0 MMOL/L (20-31); CHLORIDE LEVEL 110.0 MMOL/L (98-107); CREATININE FOR GFR 0.8 MG/DL (0.55-1.30); GLOMERULAR FILTRATION RATE 78.2 (>39); POTASSIUM SERUM 4.2 MMOL/L (3.5-5.1); SODIUM LEVEL 147.0 MMOL/L (136-145)
[2024-12-20 11:41] VITALS: BP 160/60; TEMP 98.1; O2SAT 100
[2024-12-20 18:17] VITALS: BP_SYST 113; BP_SYST 148; BP_SYST 150; BP_DIAS 63; BP_DIAS 64; BP_DIAS 65
[2024-12-20 20:55] VITALS: BP 184/68; TEMP 98.1; O2SAT 99
[2024-12-20 21:46] VITALS: BP 186/78
[2024-12-21 04:42] VITALS: BP 157/63; TEMP 97.9; O2SAT 99
[2024-12-21] MEDS: PROPRANOLOL 10 MG TAB PO SCH (06:00)
[2024-12-21 06:22] LABS: BASO # 0.1 10^3/uL (0.0-0.2); BASO % 1.2 % (0.0-1.0); EOS # 0.4 10^3/uL (0.0-0.5); EOS % 6.9 % (0.0-3.0); LYMPH # 1.6 10^3/uL (1.5-5.0); LYMPH % 28.9 % (24.0-44.0); MONO # 0.7 10^3/uL (0.0-0.8); MONO % 12.9 % (2.0-8.0); NEUTROPHILS # 2.8 10^3/uL (1.5-8.5); NEUTROPHILS % 49.9 % (36.0-66.0); PLATELET COUNT, AUTOMATED 107 10^3/uL (150-450)
[2024-12-21 06:48] LABS: CALCIUM LEVEL 8.6 MG/DL (8.3-10.6); CARBON DIOXIDE LEVEL 26.0 MMOL/L (20-31); CHLORIDE LEVEL 108.0 MMOL/L (98-107); CREATININE FOR GFR 0.85 MG/DL (0.55-1.30); GLOMERULAR FILTRATION RATE 72.8 (>39); POTASSIUM SERUM 4.7 MMOL/L (3.5-5.1); SODIUM LEVEL 143.0 MMOL/L (136-145)
[2024-12-21 10:48] VITALS: BP 156/58
[2024-12-21] MEDS ORDERED: PROP10TA56 PO (11:46)
[2024-12-21] MEDS ORDERED: ACET-897 PO (11:46)
[2024-12-21 12:00] VITALS: BP 187/82; TEMP 97; O2SAT 98
[2024-12-21 13:15] VITALS: BP 182/60
[2024-12-21 13:20] VITALS: BP 182/60; TEMP 97; O2SAT 98
[2024-12-21] MEDS ORDERED: LanTUS (INSULIN GLARGINE INJ) 1 UNITS/0.01 ML SC SCH (21:00)
== END 2024-12-21 14:04 | disposition home or self-care (01) ==
LOC: M ED 06:09 → M ED INP 14:44 → INTOOBSV 14:44 → M MSPAV 20:18
PROVIDERS: ADMIT Internal Medicine Nephrology; ATTEND Internal Medicine Nephrology
DX: K76.82 Hepatic encephalopathy (principal); K75.81 Nonalcoholic steatohepatitis (NASH); E11.42 Type 2 diabetes mellitus with diabetic polyneuropathy; I50.32 Chronic diastolic (congestive) heart failure; K21.9 Gastro-esophageal reflux disease without esophagitis; I25.10 Atherosclerotic heart disease of native coronary artery without angina pectoris; Z95.5 Presence of coronary angioplasty implant and graft; R26.89 Other abnormalities of gait and mobility; R29.6 Repeated falls; K59.00 Constipation, unspecified; K76.6 Portal hypertension; S80.12XA Contusion of left lower leg, initial encounter; W07.XXXA Fall from chair, initial encounter; Y92.009 Unspecified place in unspecified non-institutional (private) residence as the place of occurrence of the external cause; F03.90 Unspecified dementia, unspecified severity, without behavioral disturbance, psychotic disturbance, mood disturbance, and anxiety; D63.8 Anemia in other chronic diseases classified elsewhere; I13.0 Hypertensive heart and chronic kidney disease with heart failure and stage 1 through stage 4 chronic kidney disease, or unspecified chronic kidney disease; I27.20 Pulmonary hypertension, unspecified; E03.9 Hypothyroidism, unspecified; N18.30 Chronic kidney disease, stage 3 unspecified; E87.1 Hypo-osmolality and hyponatremia; M79.7 Fibromyalgia; R00.1 Bradycardia, unspecified; M48.061 Spinal stenosis, lumbar region without neurogenic claudication; G89.29 Other chronic pain; Z90.49 Acquired absence of other specified parts of digestive tract; Z98.41 Cataract extraction status, right eye; Z98.42 Cataract extraction status, left eye; Z90.79 Acquired absence of other genital organ(s); R55 Syncope and collapse; Z79.4 Long term (current) use of insulin; Z79.890 Hormone replacement therapy; Z79.899 Other long term (current) drug therapy; Z88.8 Allergy status to other drugs, medicaments and biological substances
CPT/HCPCS: 36415; 70450; 71045; 71275; 72125; 73552; 73564; 74177; 80048; 80076; 80177; 80307; 81001; 82077; 82140; 82550; 82553; 83605; 84145; 84443; 84484; 85025; 85610; 85730; 87040; 93005; 93041; 94760; 96374; 96376; 97116; 97161; 97165; 97530; 97535; 99285; G0378; J1815; J1885; Q9967

== ENCOUNTER 2024-12-23 11:14 | Inpatient (IN) | payer MEDICARE ==
[~2024-12-23] VITALS: Ht 162.6 cm; Wt 69.3 kg
[~2024-12-23 11:14] MED LIST changes: +ACAR25TA2 PO; +ACET-897 PO; +CELE1CAP99 PO; +FERR325T18 PO; +INSU100V6 SQ; +JARD1TAB3 PO; +LANTINJ4 SC; +MEMA10TA PO; +PROP10TA56 PO; +PROP20TA72 PO; +TIRZ2.5P SQ
[2024-12-23] MEDS ORDERED: HOME MED LIST COMPLETE! XX SCH (13:15)
[2024-12-23 13:54] LABS: PLATELET COUNT, AUTOMATED 137 10^3/uL (150-450)
[2024-12-23 14:21] LABS: ALT/SGPT 47.0 U/L (7.0-40); AST/SGOT 63.0 U/L (<34); C REACTIVE PROTEIN QUANTITATIV 0.54 MG/DL (<1.0); CALCIUM LEVEL 9.3 MG/DL (8.3-10.6); CARBON DIOXIDE LEVEL 23.0 MMOL/L (20-31); CHLORIDE LEVEL 109.0 MMOL/L (98-107); CREATININE FOR GFR 0.72 MG/DL (0.55-1.30); GLOMERULAR FILTRATION RATE 88.8 (>39); POTASSIUM SERUM 4.0 MMOL/L (3.5-5.1); SODIUM LEVEL 146.0 MMOL/L (136-145)
[2024-12-23] MEDS ORDERED: traMADol 50 MG TAB PO PRN (16:35)
[2024-12-23] MEDS: hydrALAZINE 20 MG/ML 1 ML VIAL IV ONE (17:39)
[2024-12-23 18:06] VITALS: BP 158/69; TEMP 98.1; O2SAT 94
[2024-12-23] MEDS ORDERED: DEXTROSE 50% 50 ML SYRINGE IV PRN (18:30)
[2024-12-23] MEDS ORDERED: GLUCAGON INJ 1 MG VIAL SC PRN (18:30)
[2024-12-23] MEDS ORDERED: GLUCOSE 4 GM CHEW PO PRN (18:30)
[2024-12-23] MEDS: cefTRIAXone SOD 1 GM in DEXTROSE 5% (D5W) ADV/MINI-BAG 50 ML IV SCH (19:05)
[2024-12-23 19:56] VITALS: BP 160/70; TEMP 97; O2SAT 99
[2024-12-23] MEDS: PROPRANOLOL 10 MG TAB PO SCH (20:21)
[2024-12-23] MEDS: metroNIDAZOLE 500 MG in IV 1 EA IV SCH (20:29)
[2024-12-23] MEDS: INSULIN LISPRO (NovoLOG) PER UNIT SC SCH (20:29)
[2024-12-23] MEDS: **hydrALAZINE** 10 MG TAB PO SCH (20:30)
[2024-12-23] MEDS: LACTULOSE 20 GM/30 ML SYRUP UDC PO SCH (20:30)
[2024-12-23] MEDS: ISOSORBIDE DINITRATE 30 MG PO SCH (20:30)
[2024-12-23] MEDS: NS 500 ML IV ONE (23:45)
[2024-12-23 23:46] VITALS: BP 144/56; TEMP 97.2; O2SAT 97
[2024-12-24 04:22] VITALS: BP 159/71; TEMP 97.2; O2SAT 99
[2024-12-24 05:40] LABS: PLATELET COUNT, AUTOMATED 126 10^3/uL (150-450)
[2024-12-24 06:23] LABS: ALT/SGPT 39.0 U/L (7.0-40); AST/SGOT 51.0 U/L (<34); CALCIUM LEVEL 8.1 MG/DL (8.3-10.6); CARBON DIOXIDE LEVEL 24.0 MMOL/L (20-31); CHLORIDE LEVEL 107.0 MMOL/L (98-107); CREATININE FOR GFR 0.78 MG/DL (0.55-1.30); GLOMERULAR FILTRATION RATE 80.7 (>39); MAGNESIUM LEVEL 1.7 MG/DL (1.8-2.4); POTASSIUM SERUM 3.8 MMOL/L (3.5-5.1); SODIUM LEVEL 141.0 MMOL/L (136-145)
[2024-12-24] MEDS: LEVOTHYROXINE 112 MCG TABLET (0.112 MG) PO SCH (06:33)
[2024-12-24 08:11] VITALS: BP 149/65; TEMP 98; O2SAT 100
[2024-12-24] MEDS: MAG SULF 1GM/100ML (MAG RUN) 1 GM in IV 1 EA IV ONE (09:23)
[2024-12-24] MEDS: INSULIN LISPRO (NovoLOG) PER UNIT SC SCH (09:23)
[2024-12-24] MEDS: SPIRONOLACTONE 25 MG TAB PO SCH (09:24)
[2024-12-24] MEDS: TORSEMIDE 20 MG TAB PO SCH (09:24)
[2024-12-24 11:41] VITALS: BP 159/68; TEMP 97.4; O2SAT 100
[2024-12-24 15:48] VITALS: BP 136/60; TEMP 97.9; O2SAT 99
[2024-12-24 19:53] VITALS: BP 138/61; TEMP 98; O2SAT 98
[2024-12-24 23:28] VITALS: BP 132/60; TEMP 97.9; O2SAT 98
[2024-12-25 04:16] VITALS: BP 156/67; TEMP 97.5; O2SAT 99
[2024-12-25 06:15] LABS: PLATELET COUNT, AUTOMATED 123 10^3/uL (150-450)
[2024-12-25 06:45] LABS: ALT/SGPT 39.0 U/L (7.0-40); AST/SGOT 45.0 U/L (<34); CALCIUM LEVEL 8.3 MG/DL (8.3-10.6); CARBON DIOXIDE LEVEL 23.0 MMOL/L (20-31); CHLORIDE LEVEL 108.0 MMOL/L (98-107); CREATININE FOR GFR 0.87 MG/DL (0.55-1.30); GLOMERULAR FILTRATION RATE 70.7 (>39); MAGNESIUM LEVEL 2.0 MG/DL (1.8-2.4); POTASSIUM SERUM 4.5 MMOL/L (3.5-5.1); SODIUM LEVEL 142.0 MMOL/L (136-145)
[2024-12-25 07:32] VITALS: BP 190/93; TEMP 97.7
[2024-12-25 11:59] VITALS: BP 149/67; TEMP 98.8; O2SAT 99
[2024-12-25 16:23] VITALS: BP 130/58; TEMP 99.5; O2SAT 98
[2024-12-25 20:04] VITALS: BP 134/60; TEMP 99; O2SAT 99
[2024-12-26] VITALS (9 sets, daily range): BP systolic 138–195; BP diastolic 56–79; TEMP 97.1–97.8; O2SAT 96–100
[2024-12-26 05:56] LABS: PLATELET COUNT, AUTOMATED 123 10^3/uL (150-450)
[2024-12-26 06:19] LABS: ALT/SGPT 38.0 U/L (7.0-40); AST/SGOT 44.0 U/L (<34); CALCIUM LEVEL 8.4 MG/DL (8.3-10.6); CARBON DIOXIDE LEVEL 21.0 MMOL/L (20-31); CHLORIDE LEVEL 107.0 MMOL/L (98-107); CREATININE FOR GFR 0.9 MG/DL (0.55-1.30); GLOMERULAR FILTRATION RATE 67.9 (>39); POTASSIUM SERUM 4.7 MMOL/L (3.5-5.1); SODIUM LEVEL 138.0 MMOL/L (136-145)
[2024-12-27 03:20] VITALS: BP 168/72; TEMP 97.7; O2SAT 100
[2024-12-27 05:19] LABS: PLATELET COUNT, AUTOMATED 140 10^3/uL (150-450)
[2024-12-27 05:44] LABS: ALT/SGPT 36.0 U/L (7.0-40); AST/SGOT 42.0 U/L (<34); CALCIUM LEVEL 8.3 MG/DL (8.3-10.6); CARBON DIOXIDE LEVEL 25.0 MMOL/L (20-31); CHLORIDE LEVEL 105.0 MMOL/L (98-107); CREATININE FOR GFR 0.88 MG/DL (0.55-1.30); GLOMERULAR FILTRATION RATE 69.8 (>39); POTASSIUM SERUM 4.8 MMOL/L (3.5-5.1); SODIUM LEVEL 138.0 MMOL/L (136-145)
[2024-12-27 07:30] VITALS: BP 186/80; TEMP 97.7; O2SAT 98
[2024-12-27 07:47] VITALS: BP 186/80
[2024-12-27 09:38] VITALS: BP 168/80
== END 2024-12-27 12:08 | disposition home or self-care (01) | DRG 442 ==
LOC: EDBD 11:14 → M ED 11:14 → M ED INP 11:15 → M PCU 18:12 → OBSVTOIN 12-24 16:28 → UNDODISIN 12-27 12:08
PROVIDERS: ADMIT Internal Medicine; ATTEND Family Medicine
DX: K76.82 Hepatic encephalopathy (principal); I50.32 Chronic diastolic (congestive) heart failure; I13.0 Hypertensive heart and chronic kidney disease with heart failure and stage 1 through stage 4 chronic kidney disease, or unspecified chronic kidney disease; E87.1 Hypo-osmolality and hyponatremia; K76.6 Portal hypertension; K75.81 Nonalcoholic steatohepatitis (NASH); K74.60 Unspecified cirrhosis of liver; R29.6 Repeated falls; D63.8 Anemia in other chronic diseases classified elsewhere; D50.9 Iron deficiency anemia, unspecified; E11.42 Type 2 diabetes mellitus with diabetic polyneuropathy; E78.5 Hyperlipidemia, unspecified; I25.10 Atherosclerotic heart disease of native coronary artery without angina pectoris; I27.20 Pulmonary hypertension, unspecified; K21.9 Gastro-esophageal reflux disease without esophagitis; E03.9 Hypothyroidism, unspecified; N18.30 Chronic kidney disease, stage 3 unspecified; E11.22 Type 2 diabetes mellitus with diabetic chronic kidney disease; M79.7 Fibromyalgia; F03.90 Unspecified dementia, unspecified severity, without behavioral disturbance, psychotic disturbance, mood disturbance, and anxiety; M48.061 Spinal stenosis, lumbar region without neurogenic claudication; M47.812 Spondylosis without myelopathy or radiculopathy, cervical region; E53.8 Deficiency of other specified B group vitamins; R00.1 Bradycardia, unspecified; E55.9 Vitamin D deficiency, unspecified; G89.29 Other chronic pain; Z87.81 Personal history of (healed) traumatic fracture; Z90.49 Acquired absence of other specified parts of digestive tract; Z95.5 Presence of coronary angioplasty implant and graft; Z79.4 Long term (current) use of insulin; Z79.899 Other long term (current) drug therapy; Z88.1 Allergy status to other antibiotic agents

== ENCOUNTER → 2025-01-12 | Outpatient (CLI) | payer MEDICARE | LOC: M RAD 08:38 | DX: K70.31 Alcoholic cirrhosis of liver with ascites (principal) ==

== ENCOUNTER 2025-01-16 22:06 | Inpatient (IN) | payer MEDICARE ==
[2025-01-16 23:27] LABS: BASO # 0.1 10^3/uL (0.0-0.2); BASO % 1.5 % (0.0-1.0); EOS # 0.4 10^3/uL (0.0-0.5); EOS % 5.8 % (0.0-3.0); LYMPH # 2.3 10^3/uL (1.5-5.0); LYMPH % 31.5 % (24.0-44.0); MONO # 0.9 10^3/uL (0.0-0.8); MONO % 12.1 % (2.0-8.0); NEUTROPHILS # 3.6 10^3/uL (1.5-8.5); NEUTROPHILS % 48.8 % (36.0-66.0); PLATELET COUNT, AUTOMATED 127 10^3/uL (150-450)
[2025-01-16 23:36] LABS: KETONE, URINE AUTO RFX NEGATIVE (NEGATIVE); LEUKOCYTE ESTERASE UR AUTO RFX NEGATIVE (NEGATIVE); MUCUS, URINE RFX SMALL (NEGATIVE); NITRITE, URINE AUTO RFX NEGATIVE (NEGATIVE); RBC, URINE AUTO RFX 4 /HPF (0-3); SQUAM EPITHELIAL CELL UR AURFX 1 /HPF (0-6); WBC, URINE AUTO RFX 1 /HPF (0-3)
[2025-01-16 23:50] LABS: ETHYL ALCOHOL (ETHANOL) < 0.003 % (0.000-0.010)
[2025-01-16 23:58] LABS: ALT/SGPT 41 U/L (7.0-40); AST/SGOT 47 U/L (<34); CALCIUM LEVEL 9.4 MG/DL (8.3-10.6); CARBON DIOXIDE LEVEL 26 MMOL/L (20-31); CHLORIDE LEVEL 105 MMOL/L (98-107); CK-MB VALUE MASS 3.6 NG/ML (<3.6); CPK CREATINE PHOSPHOKINASE 120 U/L (34-145); CREATININE FOR GFR 0.92 MG/DL (0.55-1.30); GLOMERULAR FILTRATION RATE 66.2 (>39); MB/CK RELATIVE INDEX 3.00 (< OR =4); POTASSIUM SERUM 3.9 MMOL/L (3.5-5.1); SODIUM LEVEL 143 MMOL/L (136-145)
[2025-01-17 01:12] LABS: CK-MB VALUE MASS 3.0 NG/ML (<3.6)
[2025-01-17 01:18] LABS: CPK CREATINE PHOSPHOKINASE 121.0 U/L (34-145); MB/CK RELATIVE INDEX 2.47 (< OR =4)
[2025-01-17] MEDS ORDERED: DEXTROSE 50% 50 ML SYRINGE IV PRN ×2 (03:40→14:00)
[2025-01-17] MEDS ORDERED: GLUCAGON INJ 1 MG VIAL SC PRN ×2 (03:40→14:00)
[2025-01-17] MEDS ORDERED: GLUCOSE 4 GM CHEW PO PRN ×2 (03:40→14:00)
[2025-01-17] MEDS: NS (Normal Saline) 0.9% 1,000 ML IV SCH (04:08)
[2025-01-17] MEDS ORDERED: ACET-683 PO (04:24)
[2025-01-17] MEDS ORDERED: HOME MED LIST COMPLETE! XX SCH (04:25)
[2025-01-17] MEDS: traMADol 50 MG TAB PO PRN (05:27)
[2025-01-17] MEDS: LACTULOSE 20 GM/30 ML SYRUP UDC PO SCH (05:51)
[2025-01-17 06:00] VITALS: BP 149/67; TEMP 97.7; O2SAT 100
[2025-01-17] MEDS: INSULIN LISPRO (NovoLOG) PER UNIT SC SCH ×3 (06:48→21:07)
[2025-01-17] MEDS: LEVOTHYROXINE 112 MCG TABLET (0.112 MG) PO SCH (06:49)
[2025-01-17] MEDS: HEPARIN SOD 5000 UNITS/ML 1 ML VIAL/SYRINGE SC SCH (10:22)
[2025-01-17] MEDS: ISOSORBIDE DINITRATE 30 MG PO SCH (10:23)
[2025-01-17] MEDS: **hydrALAZINE** 10 MG TAB PO SCH (10:24)
[2025-01-17] MEDS: TORSEMIDE 20 MG TAB PO SCH (10:24)
[2025-01-17] MEDS: SPIRONOLACTONE 25 MG TAB PO SCH (10:25)
[2025-01-17 12:00] VITALS: BP 130/63; TEMP 98; O2SAT 99
[2025-01-17] MEDS: MIRALAX *UNIT DOSE* 17 GM PACKET PO ONE (15:51)
[2025-01-17 20:00] VITALS: BP 116/56; TEMP 97.9; O2SAT 98
[2025-01-17] MEDS: ATORVASTATIN 20 MG TAB PO SCH (21:05)
[2025-01-17] MEDS: LanTUS (INSULIN GLARGINE INJ) 1 UNITS/0.01 ML SC SCH (21:07)
[2025-01-18 04:45] VITALS: BP 137/64; TEMP 97.9; O2SAT 99
[2025-01-18 06:27] LABS: PLATELET COUNT, AUTOMATED 104 10^3/uL (150-450)
[2025-01-18 06:45] LABS: ALT/SGPT 34.0 U/L (7.0-40); AST/SGOT 41.0 U/L (<34); CALCIUM LEVEL 8.6 MG/DL (8.3-10.6); CARBON DIOXIDE LEVEL 26.0 MMOL/L (20-31); CHLORIDE LEVEL 105.0 MMOL/L (98-107); CREATININE FOR GFR 0.97 MG/DL (0.55-1.30); GLOMERULAR FILTRATION RATE 62.1 (>39); POTASSIUM SERUM 4.4 MMOL/L (3.5-5.1); SODIUM LEVEL 141.0 MMOL/L (136-145)
[2025-01-18] MEDS: LACTULOSE 20 GM/30 ML SYRUP UDC PO ONE (09:20)
[2025-01-18 12:00] VITALS: BP 118/56; TEMP 99.8; O2SAT 99
[2025-01-18 20:01] VITALS: BP 133/61; TEMP 98.4; O2SAT 99
[2025-01-19 04:53] VITALS: BP 158/67; TEMP 98.3; O2SAT 97
[2025-01-19 06:24] LABS: PLATELET COUNT, AUTOMATED 102 10^3/uL (150-450)
[2025-01-19 06:48] LABS: ALT/SGPT 42.0 U/L (7.0-40); AST/SGOT 56.0 U/L (<34); CALCIUM LEVEL 8.4 MG/DL (8.3-10.6); CARBON DIOXIDE LEVEL 24.0 MMOL/L (20-31); CHLORIDE LEVEL 111.0 MMOL/L (98-107); CREATININE FOR GFR 0.8 MG/DL (0.55-1.30); GLOMERULAR FILTRATION RATE 78.2 (>39); POTASSIUM SERUM 4.4 MMOL/L (3.5-5.1); SODIUM LEVEL 145.0 MMOL/L (136-145)
[2025-01-19] MEDS: DOCUSATE SODIUM 100 MG CAPSULE PO SCH (09:53)
[2025-01-19] MEDS: LanTUS (INSULIN GLARGINE INJ) 1 UNITS/0.01 ML SC SCH (09:56)
[2025-01-19 12:00] VITALS: BP 139/65; TEMP 99.4; O2SAT 98
[2025-01-19] MEDS: INSULIN LISPRO (NovoLOG) PER UNIT SC SCH (17:43)
[2025-01-19 19:51] VITALS: BP 167/72; TEMP 98.2; O2SAT 99
[2025-01-19] MEDS ORDERED: LanTUS (INSULIN GLARGINE INJ) 1 UNITS/0.01 ML SC SCH (21:00)
[2025-01-19] MEDS: SENNA 8.6 MG TAB PO SCH (21:16)
[2025-01-20 04:41] VITALS: BP 169/77; TEMP 98.5; O2SAT 99
[2025-01-20 06:59] LABS: ALT/SGPT 62.0 U/L (7.0-40); AST/SGOT 88.0 U/L (<34); CALCIUM LEVEL 8.4 MG/DL (8.3-10.6); CARBON DIOXIDE LEVEL 23.0 MMOL/L (20-31); CHLORIDE LEVEL 108.0 MMOL/L (98-107); CREATININE FOR GFR 0.73 MG/DL (0.55-1.30); GLOMERULAR FILTRATION RATE 87.3 (>39); POTASSIUM SERUM 4.4 MMOL/L (3.5-5.1); SODIUM LEVEL 141.0 MMOL/L (136-145)
[2025-01-20 07:05] LABS: PLATELET COUNT, AUTOMATED 89 10^3/uL (150-450)
[2025-01-20 08:52] VITALS: BP 147/70
[2025-01-20 09:03] VITALS: BP 147/70
[2025-01-20] MEDS ORDERED: CONS10SO3 PO (11:06)
[2025-01-20] MEDS ORDERED: SENN18TA PO (11:06)
[2025-01-20] MEDS ORDERED: COLA100C5 PO (11:06)
[2025-01-20] MEDS ORDERED: LANTINJ4 SC (11:06)
[2025-01-20 12:00] VITALS: BP 150/67; TEMP 98.7; O2SAT 99
== END 2025-01-20 14:02 | disposition home or self-care (01) | DRG 442 ==
LOC: M ED 22:06 → EDBD 22:06 → M ED INP 22:07 → M MSPAV 01-17 06:00 → OBSVTOIN 01-17 14:18 → EEVIPCON 01-17 14:18
PROVIDERS: ADMIT Internal Medicine; ATTEND Internal Medicine
PROC: B246ZZZ Ultrasonography of Right and Left Heart (ICD-10-PCS; principal; 2025-01-17)
DX: K76.82 Hepatic encephalopathy (principal); I50.32 Chronic diastolic (congestive) heart failure; I13.0 Hypertensive heart and chronic kidney disease with heart failure and stage 1 through stage 4 chronic kidney disease, or unspecified chronic kidney disease; E87.1 Hypo-osmolality and hyponatremia; E72.20 Disorder of urea cycle metabolism, unspecified; K74.69 Other cirrhosis of liver; K75.81 Nonalcoholic steatohepatitis (NASH); F03.90 Unspecified dementia, unspecified severity, without behavioral disturbance, psychotic disturbance, mood disturbance, and anxiety; R29.6 Repeated falls; D63.8 Anemia in other chronic diseases classified elsewhere; E61.1 Iron deficiency; E11.42 Type 2 diabetes mellitus with diabetic polyneuropathy; E78.5 Hyperlipidemia, unspecified; I25.10 Atherosclerotic heart disease of native coronary artery without angina pectoris; I27.20 Pulmonary hypertension, unspecified; K21.9 Gastro-esophageal reflux disease without esophagitis; E03.9 Hypothyroidism, unspecified; N18.30 Chronic kidney disease, stage 3 unspecified; E11.22 Type 2 diabetes mellitus with diabetic chronic kidney disease; M79.7 Fibromyalgia; M47.812 Spondylosis without myelopathy or radiculopathy, cervical region; E55.9 Vitamin D deficiency, unspecified; G89.29 Other chronic pain; M25.551 Pain in right hip; Z79.4 Long term (current) use of insulin; Z79.899 Other long term (current) drug therapy; Z88.1 Allergy status to other antibiotic agents